=== PATIENT | female | born 1950 | race Caucasian/White ===

== ENCOUNTER 2020-01-22 08:11 | Outpatient (REF) | payer MEDICARE, SELFPAY ==
[2020-01-22 12:27] LABS: Free T4 (Free Thyroxine) 1.14 ng/dL (0.71-1.85); Thyroid Stimulating Hormone 4.35 mIU/mL (0.32-4.0)
[2020-01-22 12:32] LABS: Alanine Aminotransferase 10 U/L (0-31); Alkaline Phosphatase 79 U/L (39-117); Anion Gap 18 (12-20); Aspartate Amino Transferase 13 U/L (5-31); Bilirubin Total 0.4 mg/dL (0.0-1.0); Blood Urea Nitrogen 28 mg/dL (9-16); Calcium 9.3 mg/dL (8.4-10.2); Carbon Dioxide 30 mmol/L (22-29); Chloride 98 mmol/L (96-108); Cholesterol 157 mg/dL; Estimated Glomerular Filt Rate 27; HDL Cholesterol 36 mg/dL; LDL Cholesterol Calculated 90 mg/dl; Potassium 4.7 mmol/l (3.3-5.1); Sodium 141 mmol/L (135-145); Total Protein 7.5 g/dL (6.5-8.0); Triglycerides 155 mg/dL
[2020-01-22 13:31] LABS: Estimated Average Glucose 157 mg/dL; Hemoglobin A1c % 7.1 %
[2020-01-22 13:57] LABS: Glucose Fasting 38 mg/dL (60-99)
== END 2020-01-22 08:12 | disposition home or self-care (01) ==
LOC: HO.MANLR 08:11
PROVIDERS: PCP Internal Medicine; Visit Provider Internal Medicine
DX: E11.9 Type 2 diabetes mellitus without complications (principal); E03.9 Hypothyroidism, unspecified
CPT/HCPCS: 80053; 80061; 83036; 84439; 84443

== ENCOUNTER 2020-05-28 12:07 | Outpatient (REF) | payer MEDICARE, SELFPAY ==
[2020-05-28 14:01] LABS: MANUAL DIFF FLAG NO
[2020-05-28 14:13] LABS: Estimated Average Glucose 143 mg/dL; Hemoglobin A1c % 6.6 %
[2020-05-28 14:22] LABS: Basophils Absolute Auto 0.1 X10*3/uL (0.0-0.2); Basophils Percent Auto 0.5 % (0-2); Eosinophils Absolute Auto 0.8 X10*3/uL (0.0-0.4); Hematocrit 41.6 % (37-47); Hemoglobin 12.7 g/dl (12.0-16.0); Imm Gran Abs Auto 0.06 X10*3/uL (0.00-0.03); Imm Gran Pct Auto 0.4 % (0.0-0.4); Lymphocytes Absolute Auto 1.1 X10*3/uL (1.2-4.9); Lymphocytes Percent Auto 6.6 % (20-40); Mean Corpuscular HGB Conc 30.5 g/dl (31.0-35.0); Mean Corpuscular Hemoglobin 26.1 pg (27.0-33.0); Mean Corpuscular Volume 85.4 fL (80-98); Mean Platelet Volume 12.7 fL (9.4-12.3); Monocytes Absolute Auto 1.1 X10*3/uL (0.1-1.2); Monocytes Percent Auto 7.1 % (2-11); Neutrophils Absolute Auto 12.7 X10*3/uL (2.0-8.3); Neutrophils Percent Auto 80.4 % (45-73); Platelet Count 269 X10*3/uL (160-400); Red Blood Count 4.87 X10*6/uL (4.20-5.50); Red Cell Distribution Width 14.6 % (11.0-16.0); White Blood Count 15.8 X10*3/uL (4.8-10.8)
[2020-05-28 16:12] LABS: Alanine Aminotransferase 12 U/L (0-31); Albumin Level 3.9 g/dL (3.5-5.0); Alkaline Phosphatase 101 U/L (39-117); Anion Gap 19 (12-20); Aspartate Amino Transferase 13 U/L (5-31); Bilirubin Total 0.4 mg/dL (0.0-1.0); Blood Urea Nitrogen 25 mg/dL (9-16); Calcium 9.3 mg/dL (8.4-10.2); Carbon Dioxide 28 mmol/L (22-29); Chloride 98 mmol/L (96-108); Estimated Glomerular Filt Rate 32; Glucose Random 87 mg/dL (60-115); Potassium 4.6 mmol/L (3.3-5.1); Sodium 140 mmol/L (135-145); Total Protein 7.2 g/dL (6.5-8.0)
[2020-05-28 16:33] LABS: Free T4 (Free Thyroxine) 1.11 ng/dL (0.71-1.85); Thyroid Stimulating Hormone 2.34 uIU/mL (0.32-4.0)
== END 2020-05-28 12:08 | disposition home or self-care (01) ==
LOC: HO.MANLDS 12:07
PROVIDERS: PCP Internal Medicine; Visit Provider Internal Medicine
DX: N18.2 Chronic kidney disease, stage 2 (mild) (principal); E03.9 Hypothyroidism, unspecified; Z79.4 Long term (current) use of insulin
CPT/HCPCS: 36415; 80053; 83036; 84439; 84443; 85025

== ENCOUNTER 2021-04-21 14:22 | Outpatient (REF) | payer MEDICARE, SELFPAY ==
[2021-04-21 18:36] LABS: Estimated Average Glucose 169 mg/dL; Hemoglobin A1c % 7.5 %
[2021-04-21 18:42] LABS: Creatinine Urine 43.85 mg/dL; Microalbum/Creatinine Ratio Ur 50.1 ug/mg cr
[2021-04-21 18:44] LABS: Alanine Aminotransferase 7 U/L (0-31); Albumin Level 3.7 g/dL (3.5-5.0); Alkaline Phosphatase 98 U/L (39-117); Anion Gap 14 (12-20); Aspartate Amino Transferase 12 U/L (5-31); Bilirubin Total 0.6 mg/dL (0.0-1.0); Blood Urea Nitrogen 22 mg/dL (9-16); Calcium 9.2 mg/dL (8.4-10.2); Carbon Dioxide 33 mmol/L (22-29); Chloride 102 mmol/L (96-108); Cholesterol 189 mg/dL; Estimated Glomerular Filt Rate 38; Glucose Fasting 91 mg/dL (60-99); HDL Cholesterol 32 mg/dL; LDL Cholesterol Calculated 115 mg/dl; Sodium 145 mmol/L (135-145); Total Protein 7.2 g/dL (6.5-8.0); Triglycerides 214 mg/dL
[2021-04-21 19:06] LABS: Free T4 (Free Thyroxine) 1.19 ng/dL (0.71-1.85); Thyroid Stimulating Hormone 0.61 uIU/mL (0.32-4.0)
== END 2021-04-21 14:23 | disposition home or self-care (01) ==
LOC: HO.MANLDS 14:22
PROVIDERS: PCP Internal Medicine; Visit Provider Internal Medicine
DX: I10 Essential (primary) hypertension (principal); E03.9 Hypothyroidism, unspecified; Z79.4 Long term (current) use of insulin
CPT/HCPCS: 36415; 80053; 80061; 82043; 83036; 84439; 84443

== ENCOUNTER 2021-10-08 11:22 | Inpatient (IN) | payer OTHER, SELFPAY ==
[2021-10-08] VITALS (7 sets, daily range): BP systolic 110–194; BP diastolic 50–82; PULSE 75–96; RESP 16–20; TEMP 36.4–36.6; O2SAT 88–100; BMI 54.0
--- NOTE | ~2021-10-08 | CT_ITS ---
EXAMINATION: CT CHEST WITHOUT CONTRAST CLINICAL INFORMATION: Confirm pneumonia COMPARISON: Chest radiograph earlier today and 12/04/2015 TECHNIQUE: Multidetector volumetric CT imaging of the chest was done. Axial MIP volume rendering provided. Sagittal and coronal reformatted images were obtained. This CT examination was performed using dose optimization techniques as appropriate, variously including the following: *Automated exposure control *Adjustment of mA and/or kV according to patient size (this includes techniques or standardized protocols for targeted exams where dose is matched to indication/reason for exam; i.e. extremities or head) *Use of iterative reconstruction technique DLP: 543 mGy-cm FINDINGS: LUNGS: There is mild prominence of interstitial markings present throughout the lungs with no focal infiltrate seen. There is one area of groundglass change seen adjacent to the mediastinum along the major fissure in the left upper lobe (5:154). A single small 3 mm right upper lobe nodule is present (5:44). MEDIASTINUM: Heart size upper limits of normal. Mediastinal lymphadenopathy is present with the largest node in the right paracarinal area measuring 3.4 x 3.0 x 3.1 cm (3:17). PLEURA: There is no pleural effusion. No pleural mass or thickening. AXILLA: Mildly enlarged axillary lymph nodes are present the largest on the right measuring 2.1 x 1.5 x 1.6 cm (3:16) UPPER ABDOMEN: Shotty adenopathy is seen with nodes seen in the gastrohepatic ligament and jasvir hepatis region. No abdominal lymphadenopathy. OSSEOUS STRUCTURES: Degenerative changes noted throughout the spine. No bony destructive lesions CT/CT chest wo con IMPRESSION: 1. No convincing evidence of pneumonia. One tiny area of groundglass infiltrate. 2. Chronic interstitial disease is present. 3. Mediastinal lymphadenopathy is present Fleischner guidelines were followed.
--- NOTE | ~2021-10-08 | XR_ITS ---
EXAMINATION: XR CHEST CLINICAL INFORMATION: Fatigue with question of COMPARISON: 12/04/2015 TECHNIQUE: Frontal view of the chest was obtained. FINDINGS: The heart is enlarged. There are increased interstitial markings bilaterally with increased nodular densities present as well. Findings are suggestive of interstitial infiltrates. There is some relative sparing of the left lower lobe. Differential would include entities such as viral pneumonia. Some element of somewhat atypical CHF could also cause such a picture. No pleural effusions. XR/XR chest 1V IMPRESSION: Worsening of appearances since prior with increased interstitial markings as described above. Differential includes infectious and noninfectious etiologies.
[2021-10-08 11:34] LABS: Glucose, Whole Blood 85 mg/dL (60-115)
--- NOTE | 2021-10-08 11:36 | ECG_ITS ---
Test Reason : weakness Blood Pressure : / mmHG Vent. Rate : 081 BPM Atrial Rate : 081 BPM P-R Int : 230 ms QRS Dur : 116 ms QT Int : 446 ms P-R-T Axes : 043 083 008 degrees QTc Int : 518 ms Sinus rhythm with 1st degree A-V block Cannot rule out Anterior infarct , age undetermined Prolonged QT Abnormal ECG When compared with ECG of 04-DEC-2015 18:49, Sinus rhythm has replaced Junctional rhythm Referred By: Balbir Prater Electronically Signed By:Kenji Green
[2021-10-08] MEDS: Dextrose 5 % and Lactated Ring 1,000 ML 125 ML IVCONT (11:59)
--- NOTE | 2021-10-08 12:00 | ED.GENADULT ---
HPI - General Adult General Chief complaint: General Medical Stated complaint: HYPOGLYCEMIA Time Seen by Provider: 10/08/21 11:26 Source: patient Mode of arrival: ambulatory Limitations: no limitations History of Present Illness HPI narrative: 71-year-old female history of diabetes, chronic lower extremity cellulitis, and CHF presents to ED for hypoglycemia. Patient this morning was awakened by family and was drowsy and slightly altered. When EMT came to the house he states patient's glucose was 22. EMT was informed by family that patient has not been eating much due to patient complaining of being fatigued, tired, and loss of appetite. He also states patient at times not compliant with her medications. Patient admits not taking her CHF medication. Patient states being compliant with her diabetes medication. Patient denies any fever, chills, chest pain, shortness of breath, or increased swelling of lower extremities. Patient denies any recent trauma. Patient denies any slurred speech, facial droop, paralysis of extremities, loss of vision, dizziness, abdominal pain, diarrhea, dysuria, hematuria, or recent trauma. Patient was given D10 25 amp. Glucose fluctates between 22, 45, and than 75 Related Data Home Medications Medication Instructions Recorded Confirmed amitriptyline 50 mg tablet 25 mg PO DAILY 10/08/21 10/08/21 aspirin 325 mg tablet 325 mg PO DAILY 10/08/21 10/08/21 brinzolamide 1 %-brimonidine 0.2 % 1 drp ophthalmic-Right BID 10/08/21 10/08/21 eye drops,suspension (Simbrinza) chlordiazepoxide HCl 10 mg capsule 10 mg PO BEDTIME 10/08/21 10/08/21 citalopram 20 mg tablet 20 mg PO DAILY 10/08/21 10/08/21 clonazepam 0.5 mg tablet 0.5 mg PO BID 10/08/21 10/08/21 docusate sodium 100 mg tablet 100 mg PO DAILY 10/08/21 10/08/21 furosemide 40 mg tablet 40 tab PO BID@0900,1800 10/08/21 10/08/21 glipizide 10 mg tablet 10 mg PO DAILY 10/08/21 10/08/21 hydroxychloroquine 200 mg tablet 200 mg PO BID 10/08/21 10/08/21 insulin glargine 100 unit/mL (3 80 unit subcut BEDTIME 10/08/21 10/08/21 mL) subcutaneous pen (Lantus Solostar U-100 Insulin) insulin lispro protamine-lispro 7 - 15 ea subcut TIDAC 10/08/21 10/08/21 100 unit/mL (75-25) subcutaneous pen levothyroxine 175 mcg tablet 175 mcg PO DAILY@0600 10/08/21 10/08/21 multivitamin 1 tab PO DAILY 10/08/21 10/08/21 netarsudil 0.02 %-latanoprost 1 drp ophthalmic (eye) BEDTIME 10/08/21 10/08/21 0.005 % eye drops (Rocklatan) penicillin V potassium 250 mg 250 mg PO BID 10/08/21 10/08/21 tablet simvastatin 20 mg tablet 20 mg PO BEDTIME 10/08/21 10/08/21 sitagliptin 100 mg tablet (Januvia) 100 mg PO DAILY 10/08/21 10/08/21 Allergies Allergy/AdvReac Type Severity Reaction Status Date / Time From PERCOCET Allergy Intermediate RASH Uncoded 12/20/19 15:18 Review of Systems Review of Systems: hypoglycemia, fatigue, not eating. Woke up altered and resolved after being given D!0 Yes all other systems are reviewed and are negative [facility] Past Medical History Medical History (Updated 10/08/21 @ 21:14 by MARIAH Prieto) CKD (chronic kidney disease) Diabetes mellitus with insulin therapy HLD (hyperlipidemia) HTN (hypertension) Hypothyroidism Lower extremity edema Migraine Obesity Pseudotumor cerebri PVD (peripheral vascular disease) Surgical History (Updated 10/08/21 @ 17:24 by Cameron Toribio MD) H/O cataract extraction H/O hysterectomy for benign disease Hx of cholecystectomy S/P appendectomy Family History Family History (Updated 10/08/21 @ 17:27 by Cameron Toribio MD) Mother Heart attack, Onset Age: 92 Father Heart attack, Onset Age: 66 Other Diabetes Social History Social History Alcohol intake: never Patient Tobacco Use Status: Never used Tobacco Use of substances other than those prescribed or required for medical reasons: No Advance Directives: Yes Advance Directives on File: Yes Advance Directives Date on File: 09/26/20 service: No Current occupational status: disabled Physical Exam ED Vital Signs: Vital Signs - 24 hr 10/08/21 11:36 10/08/21 11:43 10/08/21 13:31 Temperature 97.8 F 97.6 F 97.7 F Pulse Rate 83 81 75 Respiratory Rate 20 17 16 Blood Pressure 110/65 110/65 179/74 H Pulse Oximetry 94 93 99 Oxygen Delivery Method Room Air Room Air Nasal Cannula Oxygen Flow Rate 1.5 10/08/21 14:40 Temperature Pulse Rate 79 Respiratory Rate 18 Blood Pressure 156/67 H Pulse Oximetry 98 Oxygen Delivery Method Nasal Cannula Oxygen Flow Rate 2 BMI result Body Mass Index 54.0 Const General: cooperative, healthy appearing, comfortable, no acute distress, well developed, alert, awake and Physically active Orientation/consciousness: oriented to person, oriented to place, oriented to time and patient oriented x3 HENMT Head: Yes normal to inspection, Yes No palpable skull fracture present, Yes normocephalic, Yes atraumatic and No abrasion Eyes General: appearance normal, both eyes and all related structures Neck Neck: Yes normal visual inspection, Yes full ROM, Yes no lymphadenopathy, Yes no meningeal signs, Yes trachea midline, Yes supple, No anterior neck swelling and No tender Chest Chest palpation & inspection: normal inspection of the chest and normal palpation of entire chest wall Resp Effort & Inspection: normal respiratory effort and able to speak in complete sentences Auscultation: clear to auscultation bilaterally Cardio Jugular venous distension: no JVD Heart sounds: S1 normal heart sound present and S2 normal heart sound present GI Inspection: Yes normal to inspection and No abdominal wall ecchymosis Palpation (GI): Soft to palpation, not firm, nontender, no guarding and not rigid General: No CVA tenderness and Yes no CVA tenderness Back/Spine/Pelvis Back: no CVA tenderness, No CVA tenderness and No back tenderness Skin General skin exam: no rashes or lesions noted and elasticity normal Neuro Other: Negative slurred speech. Negative facial droop. All extremities equal strength 5+. Finger to nose rapid hand movement intact. Negative pronator drift. NIH score 0 General: oriented to person, oriented to place, oriented to time, patient oriented x3, tone normal, moves all extremities, Normal light touch and pain sensation, no meningeal signs and CN's II-XI intact bilaterally Extrem Other: Lower extremities negative for swelling, pitting edema, calf tenderness, or erythema. Positive for chronic venous stasis changes. General: Yes normal to inspection and Yes full ROM Psych Appearance: grossly normal and well kempt Course Course Course Narrative: Patient repeat glucose 85 will start D5 LR. We will look for source of infection due to patient being fatigued for couple a days decreased appetite and hypoglycemic. Chest x-ray, UA, and COVID test ordered. Initial vitals did not indicate SIRS. To patient being diabetic will check for side AL will do EKG, troponin, and BNP. Patient also is on a sulfonylurea which can cause long-lasting hypoglycemia. Reevaluation(s) Reevaluation #1: Patient glucose 48. Patient presently CV D5 LR. D5 and ordered and given. Alba juice and sandwich given to patient. First troponin positive.. Negative STEMI. Patient having any chest pain. Review of labs shows CKD. Chest x-ray pending. Time: 12:47 Reevaluation #2: Patient's chest x-ray shows pneumonia. X-ray states maybe CHF atypical but BNP slightly elevated and no pericardial effusion. With patient being fatigued and decreased appetite was start antibiotics sent for chest CT to confirm pneumonia. Time: 15:22 Reevaluation #3: Chest CT has for hospitalist negative for pneumonia. Recommend antibiotics be stopped. Urine negative for UTI. Patient became hypoglycemic again at 58. Patient admitted for hypoglycemia. Patient alert oriented x3 Time: 21:12 Medical Decision Making MDM Narrative Medical decision making narrative: Hypoglycemia Lab Data Result diagrams: 10/08/21 12:22 10/08/21 12:05 Labs: Lab Results 10/08/21 10/08/21 10/08/21 Range/Units 11:28 12:05 12:05 WBC (4.8-10.8) X10*3/uL RBC (4.20-5.50) X10*6/uL Hgb (12.0-16.0) g/dl Hct (37.0-47.0) % MCV (80.0-98.0) fL MCH (27.0-33.0) pg MCHC (31.0-35.0) g/dl RDW (11.0-16.0) % Plt Count (160-400) X10*3/uL MPV (9.4-12.3) fL Immature Gran % (Auto) (0.0-0.4) % Neut % (Auto) (45-73) % Lymph % (Auto) (20-40) % [place] % (Auto) (2-11) % Eos % (Auto) (0-4) % Baso % (Auto) (0-2) % Lymph # (Auto) (1.2-4.9) X10*3/uL [place] # (Auto) (0.1-1.2) X10*3/uL Eos # (Auto) (0.0-0.4) X10*3/uL Baso # (Auto) (0.0-0.2) X10*3/uL Abs Immat Gran (auto) (0.00-0.03) X10*3/uL Absolute Neuts (auto) (2.0-8.3) x10*3/uL Absolute Nucleated RBC (0.0-0.012) X10*3/uL Nucleated RBC % (auto) (0.0-0.2) /100WBC PT (10.0-13.1) SEC INR (0.9-1.1) APTT (24.1-38.0) SEC Sodium 144 (135-145) mmol/L Potassium 3.4 (3.3-5.1) mmol/L Chloride 104 (96-108) mmol/L Carbon Dioxide 31 H (22-29) mmol/L Anion Gap 12 (12-20) BUN 20 H (9-16) mg/dL Creatinine 1.49 H (0.5-1.4) mg/dL Estim Creat Clear Calc 48.1 Estimated GFR 35 POC Glucose 85 (60-115) mg/dL Random Glucose 48 L* (60-115) mg/dL Lactic Acid (0.5-2.0) mmol/L Calcium 8.5 D (8.4-10.2) mg/dL Magnesium (1.6-2.6) mg/dL Total Bilirubin 0.3 (0.0-1.0) mg/dL AST 14 (5-31) U/L ALT 7 (0-31) U/L Alkaline Phosphatase 75 D (39-117) U/L Troponin I High Sens (<3.5-17.0) ng/L B-Natriuretic Peptide (<100) pg/mL Total Protein 6.9 (6.5-8.0) g/dL Albumin 3.5 (3.5-5.0) g/dL COVID-19 (DENY) Negative (Negative) COVID-19 Clin Com See Note 10/08/21 10/08/21 10/08/21 Range/Units 12:05 12:05 12:22 WBC 12.1 H (4.8-10.8) X10*3/uL RBC 4.39 (4.20-5.50) X10*6/uL Hgb 10.8 L (12.0-16.0) g/dl Hct 36.0 L (37.0-47.0) % MCV 82.0 (80.0-98.0) fL MCH 24.6 L (27.0-33.0) pg MCHC 30.0 L (31.0-35.0) g/dl RDW 15.2 (11.0-16.0) % Plt Count 193 (160-400) X10*3/uL MPV 11.0 (9.4-12.3) fL Immature Gran % (Auto) 0.2 (0.0-0.4) % Neut % (Auto) 81.5 H (45-73) % Lymph % (Auto) 5.6 L (20-40) % [place] % (Auto) 7.3 (2-11) % Eos % (Auto) 4.9 H (0-4) % Baso % (Auto) 0.5 (0-2) % Lymph # (Auto) 0.7 L (1.2-4.9) X10*3/uL [place] # (Auto) 0.9 (0.1-1.2) X10*3/uL Eos # (Auto) 0.6 H (0.0-0.4) X10*3/uL Baso # (Auto) 0.1 (0.0-0.2) X10*3/uL Abs Immat Gran (auto) 0.03 (0.00-0.03) X10*3/uL Absolute Neuts (auto) 9.8 H (2.0-8.3) x10*3/uL Absolute Nucleated RBC 0.000 (0.0-0.012) X10*3/uL Nucleated RBC % (auto) 0.0 (0.0-0.2) /100WBC PT 11.3 (10.0-13.1) SEC INR 1.0 (0.9-1.1) APTT 40.8 H (24.1-38.0) SEC Sodium (135-145) mmol/L Potassium (3.3-5.1) mmol/L Chloride (96-108) mmol/L Carbon Dioxide (22-29) mmol/L Anion Gap (12-20) BUN (9-16) mg/dL Creatinine (0.5-1.4) mg/dL Estim Creat Clear Calc Estimated GFR POC Glucose (60-115) mg/dL Random Glucose (60-115) mg/dL Lactic Acid (0.5-2.0) mmol/L Calcium (8.4-10.2) mg/dL Magnesium (1.6-2.6) mg/dL Total Bilirubin (0.0-1.0) mg/dL AST (5-31) U/L ALT (0-31) U/L Alkaline Phosphatase (39-117) U/L Troponin I High Sens 68.9 H* (<3.5-17.0) ng/L B-Natriuretic Peptide 142 H (<100) pg/mL Total Protein (6.5-8.0) g/dL Albumin (3.5-5.0) g/dL COVID-19 (DENY) (Negative) COVID-19 Clin Com 10/08/21 10/08/21 10/08/21 Range/Units 12:22 13:29 14:43 WBC (4.8-10.8) X10*3/uL RBC (4.20-5.50) X10*6/uL Hgb (12.0-16.0) g/dl Hct (37.0-47.0) % MCV (80.0-98.0) fL MCH (27.0-33.0) pg MCHC (31.0-35.0) g/dl RDW (11.0-16.0) % Plt Count (160-400) X10*3/uL MPV (9.4-12.3) fL Immature Gran % (Auto) (0.0-0.4) % Neut % (Auto) (45-73) % Lymph % (Auto) (20-40) % [place] % (Auto) (2-11) % Eos % (Auto) (0-4) % Baso % (Auto) (0-2) % Lymph # (Auto) (1.2-4.9) X10*3/uL [place] # (Auto) (0.1-1.2) X10*3/uL Eos # (Auto) (0.0-0.4) X10*3/uL Baso # (Auto) (0.0-0.2) X10*3/uL Abs Immat Gran (auto) (0.00-0.03) X10*3/uL Absolute Neuts (auto) (2.0-8.3) x10*3/uL Absolute Nucleated RBC (0.0-0.012) X10*3/uL Nucleated RBC % (auto) (0.0-0.2) /100WBC PT (10.0-13.1) SEC INR (0.9-1.1) APTT (24.1-38.0) SEC Sodium (135-145) mmol/L Potassium (3.3-5.1) mmol/L Chloride (96-108) mmol/L Carbon Dioxide (22-29) mmol/L Anion Gap (12-20) BUN (9-16) mg/dL Creatinine (0.5-1.4) mg/dL Estim Creat Clear Calc Estimated GFR POC Glucose 94 99 (60-115) mg/dL Random Glucose (60-115) mg/dL Lactic Acid (0.5-2.0) mmol/L Calcium (8.4-10.2) mg/dL Magnesium 2.2 (1.6-2.6) mg/dL Total Bilirubin (0.0-1.0) mg/dL AST (5-31) U/L ALT (0-31) U/L Alkaline Phosphatase (39-117) U/L Troponin I High Sens (<3.5-17.0) ng/L B-Natriuretic Peptide (<100) pg/mL Total Protein (6.5-8.0) g/dL Albumin (3.5-5.0) g/dL COVID-19 (DENY) (Negative) COVID-19 Clin Com 10/08/21 10/08/21 10/08/21 Range/Units 15:04 15:04 16:09 WBC (4.8-10.8) X10*3/uL RBC (4.20-5.50) X10*6/uL Hgb (12.0-16.0) g/dl Hct (37.0-47.0) % MCV (80.0-98.0) fL MCH (27.0-33.0) pg MCHC (31.0-35.0) g/dl RDW (11.0-16.0) % Plt Count (160-400) X10*3/uL MPV (9.4-12.3) fL Immature Gran % (Auto) (0.0-0.4) % Neut % (Auto) (45-73) % Lymph % (Auto) (20-40) % [place] % (Auto) (2-11) % Eos % (Auto) (0-4) % Baso % (Auto) (0-2) % Lymph # (Auto) (1.2-4.9) X10*3/uL [place] # (Auto) (0.1-1.2) X10*3/uL Eos # (Auto) (0.0-0.4) X10*3/uL Baso # (Auto) (0.0-0.2) X10*3/uL Abs Immat Gran (auto) (0.00-0.03) X10*3/uL Absolute Neuts (auto) (2.0-8.3) x10*3/uL Absolute Nucleated RBC (0.0-0.012) X10*3/uL Nucleated RBC % (auto) (0.0-0.2) /100WBC PT (10.0-13.1) SEC INR (0.9-1.1) APTT (24.1-38.0) SEC Sodium (135-145) mmol/L Potassium (3.3-5.1) mmol/L Chloride (96-108) mmol/L Carbon Dioxide (22-29) mmol/L Anion Gap (12-20) BUN (9-16) mg/dL Creatinine (0.5-1.4) mg/dL Estim Creat Clear Calc Estimated GFR POC Glucose 97 (60-115) mg/dL Random Glucose (60-115) mg/dL Lactic Acid 0.7 (0.5-2.0) mmol/L Calcium (8.4-10.2) mg/dL Magnesium (1.6-2.6) mg/dL Total Bilirubin (0.0-1.0) mg/dL AST (5-31) U/L ALT (0-31) U/L Alkaline Phosphatase (39-117) U/L Troponin I High Sens 67.8 H* (<3.5-17.0) ng/L B-Natriuretic Peptide (<100) pg/mL Total Protein (6.5-8.0) g/dL Albumin (3.5-5.0) g/dL COVID-19 (DENY) (Negative) COVID-19 Clin Com ECG Data Interpretation: Sinus rhythm 1st degree AV block. Ventricular rate 81. Peer interval 250. Care is 160. QTC 518. Critical Care Time Critical Care Time Critical Care Time: Yes Total Critical Care Time: 60 Attestation: D5 Amp. Labs. D5 LR IV. Admission Discharge Plan Discharge Clinical Impression: Hypoglycemia Patient Disposition: Admitted As Inpatient
[2021-10-08 12:24] LABS: Prothrombin Time 11.3 SEC (10.0-13.1)
[2021-10-08 12:27] LABS: Partial Thromboplastin Time 40.8 SEC (24.1-38.0)
[2021-10-08 12:33] LABS: Basophils Absolute Auto 0.1 X10*3/uL (0.0-0.2); Basophils Percent Auto 0.5 % (0-2); Eosinophils Absolute Auto 0.6 X10*3/uL (0.0-0.4); Eosinophils Percent Auto 4.9 % (0-4); Hemoglobin 10.8 g/dl (12.0-16.0); Imm Gran Abs Auto 0.03 X10*3/uL (0.00-0.03); Imm Gran Pct Auto 0.2 % (0.0-0.4); Lymphocytes Absolute Auto 0.7 X10*3/uL (1.2-4.9); Lymphocytes Percent Auto 5.6 % (20-40); Mean Corpuscular Hemoglobin 24.6 pg (27.0-33.0); Monocytes Absolute Auto 0.9 X10*3/uL (0.1-1.2); Monocytes Percent Auto 7.3 % (2-11); Neutrophils Absolute Auto 9.8 x10*3/uL (2.0-8.3); Neutrophils Percent Auto 81.5 % (45-73); Platelet Count 193 X10*3/uL (160-400); Red Blood Count 4.39 X10*6/uL (4.20-5.50); Red Cell Distribution Width 15.2 % (11.0-16.0); White Blood Count 12.1 X10*3/uL (4.8-10.8)
[2021-10-08 12:39] LABS: Alanine Aminotransferase 7 U/L (0-31); Albumin Level 3.5 g/dL (3.5-5.0); Alkaline Phosphatase 75 U/L (39-117); Anion Gap 12 (12-20); Aspartate Amino Transferase 14 U/L (5-31); Bilirubin Total 0.3 mg/dL (0.0-1.0); Blood Urea Nitrogen 20 mg/dL (9-16); Calcium 8.5 mg/dL (8.4-10.2); Carbon Dioxide 31 mmol/L (22-29); Chloride 104 mmol/L (96-108); Creatinine Clr Calc Pharmacy 48.1; Estimated Glomerular Filt Rate 35; Glucose Random 48 mg/dL (60-115); Potassium 3.4 mmol/L (3.3-5.1); Sodium 144 mmol/L (135-145); Total Protein 6.9 g/dL (6.5-8.0)
[2021-10-08 12:41] LABS: B Type Natriuretic Peptide 142 pg/mL (<100); Troponin-I High Sensitivity 68.9 ng/L (<3.5-17.0)
[2021-10-08] MEDS: Dextrose 50 % 25 GM/50 ML SYRINGE IVPUSH ×2 (12:44→21:53)
[2021-10-08 12:50] LABS: COVID-19 Test Negative (Negative); IDNOW Serial# 08D9AD1C
[2021-10-08 12:50] LABS: Magnesium 2.2 mg/dL (1.6-2.6)
[2021-10-08 13:40] LABS: Glucose, Whole Blood 94 mg/dL (60-115)
--- NOTE | 2021-10-08 13:40 | PC.NURSE ---
pt ate tuna sandwich and a couple bites of her chocolate pudding. drank carton of milk
[2021-10-08 14:47] LABS: Glucose, Whole Blood 99 mg/dL (60-115)
[2021-10-08 15:22] LABS: Lactic Acid 0.7 mmol/L (0.5-2.0)
--- NOTE | 2021-10-08 15:23 | PC.NURSE ---
patient a&o, family at bedside, pt just returned from ct scan, ivf running per order, last set of vitals were stable, call morocho within reach, will continue to monitor
[2021-10-08 15:33] LABS: Troponin-I High Sensitivity 67.8 ng/L (<3.5-17.0)
[2021-10-08] MEDS: cefTRIAXone sodium 1 GM in 0.9 % Sodium Chloride 50 ML IV (16:12)
[2021-10-08 16:15] LABS: Glucose, Whole Blood 97 mg/dL (60-115)
--- NOTE | 2021-10-08 16:21 | P.HPHOSP_ITS ---
History of Present Illness Date of Service: 10/08/21 Chief Complaint: HyOglycemia 71 year female with diabetes on Januvia, Lantus and Glipizide 10 bid, CKD 3, hypOthyroidism on Levothyroxine, HLD on statin. She has has been complaining of feeling weak and not eating her usual meals size and yet continuen to take her meds, her daughter out of concern for low sugars. The is morning she was very weak, lethargic and confused and was found to have sugar of 22 by EMS, and 48 in ED and now up to 97 and she's feeling better. No fever or chills, no cough, no sob..CXR questionable for PNA, CT shows no convincing evidence of PNA Review of Systems Review of Systems: Gen: no fever Resp: no sob, no cough CV: no chest, no ELIAS, no leg edema GI: No n/v, no abd pain Neuro: No confusion, feeling weak PMFSH Medical History CKD (chronic kidney disease) Diabetes mellitus with insulin therapy HLD (hyperlipidemia) HTN (hypertension) Hypothyroidism Lower extremity edema Migraine Obesity Pseudotumor cerebri PVD (peripheral vascular disease) Family History (Updated 10/08/21 @ 17:27 by Cameron Toribio MD) Mother Heart attack, Onset Age: 92 Father Heart attack, Onset Age: 66 Other Diabetes Surgical History H/O cataract extraction H/O hysterectomy for benign disease Hx of cholecystectomy S/P appendectomy Social History Alcohol intake: never Patient Tobacco Use Status: Never used Tobacco Smoked in Last 30 Days: No Patient Interested in Nicotine Replacement: No Patient Given Instructions on How to Stop Smoking: No Use of substances other than those prescribed or required for medical reasons: No Advance Directives: Yes Advance Directives on File: Yes Advance Directives Date on File: 09/26/20 service: No Current occupational status: disabled Meds Allergies Allergy/AdvReac Type Severity Reaction Status Date / Time From PERCOCET Allergy Intermediate RASH Uncoded 12/20/19 15:18 Active Medications: Current Medications Dextrose/Lactated Ringer's (D5lr) 1,000 mls @ 125 mls/hr IVCONT .Q8H STA Stop: 10/08/21 19:29 Last Admin: 10/08/21 11:59 Dose: 125 mls/hr Azithromycin 500 mg/ Sodium (Chloride) 250 mls @ 125 mls/hr IV ONCE ONE Stop: 10/08/21 16:48 Home Medications Medication Instructions Recorded Confirmed Last Taken Type amitriptyline 50 mg tablet 25 mg PO DAILY 10/08/21 10/08/21 Unknown History aspirin 325 mg tablet 325 mg PO DAILY 10/08/21 10/08/21 Unknown History brinzolamide 1 %-brimonidine 0.2 % 1 drp ophthalmic-Right BID 10/08/21 10/08/21 Unknown History eye drops,suspension (Simbrinza) chlordiazepoxide HCl 10 mg capsule 10 mg PO BEDTIME 10/08/21 10/08/21 Unknown History citalopram 20 mg tablet 20 mg PO DAILY 10/08/21 10/08/21 Unknown History clonazepam 0.5 mg tablet 0.5 mg PO BID 10/08/21 10/08/21 Unknown History docusate sodium 100 mg tablet 100 mg PO DAILY 10/08/21 10/08/21 Unknown History furosemide 40 mg tablet 40 tab PO BID@0900,1800 10/08/21 10/08/21 Unknown History glipizide 10 mg tablet 10 mg PO DAILY 10/08/21 10/08/21 Unknown History hydroxychloroquine 200 mg tablet 200 mg PO BID 10/08/21 10/08/21 Unknown History insulin glargine 100 unit/mL (3 80 unit subcut BEDTIME 10/08/21 10/08/21 Unknown History mL) subcutaneous pen (Lantus Solostar U-100 Insulin) insulin lispro protamine-lispro 7 - 15 ea subcut TIDAC 10/08/21 10/08/21 Unknown History 100 unit/mL (75-25) subcutaneous pen levothyroxine 175 mcg tablet 175 mcg PO DAILY@0600 10/08/21 10/08/21 Unknown History multivitamin 1 tab PO DAILY 10/08/21 10/08/21 Unknown History netarsudil 0.02 %-latanoprost 1 drp ophthalmic (eye) BEDTIME 10/08/21 10/08/21 Unknown History 0.005 % eye drops (Rocklatan) penicillin V potassium 250 mg 250 mg PO BID 10/08/21 10/08/21 Unknown History tablet simvastatin 20 mg tablet 20 mg PO BEDTIME 10/08/21 10/08/21 Unknown History sitagliptin 100 mg tablet (Januvia) 100 mg PO DAILY 10/08/21 10/08/21 Unknown History Physical Exam Vital Signs and Narrative: Vital Signs: Last Vital Signs Temp 97.7 F 10/08/21 13:31 Pulse 79 10/08/21 14:40 Resp 18 10/08/21 14:40 BP 156/67 H 10/08/21 14:40 Pulse Ox 98 10/08/21 14:40 O2 Del Method 10/08/21 14:40 O2 Flow Rate 2 10/08/21 14:40 BMI result Body Mass Index 54.0 Results Labs CBC and Chem 7: 10/08/21 12:22 10/08/21 12:05 Labs: Laboratory Results - last 24 hr 10/08/21 10/08/21 10/08/21 11:28 12:05 12:05 MCV MCH MCHC RDW Plt Count MPV Immature Gran % (Auto) Neut % (Auto) Lymph % (Auto) [place] % (Auto) Eos % (Auto) Baso % (Auto) Lymph # (Auto) [place] # (Auto) Eos # (Auto) Baso # (Auto) Abs Immat Gran (auto) Absolute Neuts (auto) Absolute Nucleated RBC Nucleated RBC % (auto) PT INR APTT Anion Gap 12 Estim Creat Clear Calc 48.1 Estimated GFR 35 POC Glucose 85 Random Glucose 48 L* Lactic Acid Calcium 8.5 D Magnesium Total Bilirubin 0.3 AST 14 ALT 7 Alkaline Phosphatase 75 D Troponin I High Sens B-Natriuretic Peptide Total Protein 6.9 Albumin 3.5 COVID-19 (DENY) Negative COVID-19 Clin Com See Note 10/08/21 10/08/21 10/08/21 12:05 12:05 12:22 MCV 82.0 MCH 24.6 L MCHC 30.0 L RDW 15.2 Plt Count 193 MPV 11.0 Immature Gran % (Auto) 0.2 Neut % (Auto) 81.5 H Lymph % (Auto) 5.6 L [place] % (Auto) 7.3 Eos % (Auto) 4.9 H Baso % (Auto) 0.5 Lymph # (Auto) 0.7 L [place] # (Auto) 0.9 Eos # (Auto) 0.6 H Baso # (Auto) 0.1 Abs Immat Gran (auto) 0.03 Absolute Neuts (auto) 9.8 H Absolute Nucleated RBC 0.000 Nucleated RBC % (auto) 0.0 PT 11.3 INR 1.0 APTT 40.8 H Anion Gap Estim Creat Clear Calc Estimated GFR POC Glucose Random Glucose Lactic Acid Calcium Magnesium Total Bilirubin AST ALT Alkaline Phosphatase Troponin I High Sens 68.9 H* B-Natriuretic Peptide 142 H Total Protein Albumin COVID-19 (DENY) COVID-19 [facility] 10/08/21 10/08/21 10/08/21 12:22 13:29 14:43 MCV MCH MCHC RDW Plt Count MPV Immature Gran % (Auto) Neut % (Auto) Lymph % (Auto) [place] % (Auto) Eos % (Auto) Baso % (Auto) Lymph # (Auto) [place] # (Auto) Eos # (Auto) Baso # (Auto) Abs Immat Gran (auto) Absolute Neuts (auto) Absolute Nucleated RBC Nucleated RBC % (auto) PT INR APTT Anion Gap Estim Creat Clear Calc Estimated GFR POC Glucose 94 99 Random Glucose Lactic Acid Calcium Magnesium 2.2 Total Bilirubin AST ALT Alkaline Phosphatase Troponin I High Sens B-Natriuretic Peptide Total Protein Albumin COVID-19 (DENY) COVID-19 [facility] 10/08/21 10/08/21 10/08/21 15:04 15:04 16:09 MCV MCH MCHC RDW Plt Count MPV Immature Gran % (Auto) Neut % (Auto) Lymph % (Auto) [place] % (Auto) Eos % (Auto) Baso % (Auto) Lymph # (Auto) [place] # (Auto) Eos # (Auto) Baso # (Auto) Abs Immat Gran (auto) Absolute Neuts (auto) Absolute Nucleated RBC Nucleated RBC % (auto) PT INR APTT Anion Gap Estim Creat Clear Calc Estimated GFR POC Glucose 97 Random Glucose Lactic Acid 0.7 Calcium Magnesium Total Bilirubin AST ALT Alkaline Phosphatase Troponin I High Sens 67.8 H* B-Natriuretic Peptide Total Protein Albumin COVID-19 (DENY) COVID-19 [facility] Radiologist's Impressions: Impressions Chest X-Ray 10/08/21 12:41 IMPRESSION: Worsening of appearances since prior with increased interstitial markings as described above. Differential includes infectious and noninfectious etiologies. Assessment and Plan (1) Hypoglycemia: Status: Acute (2) Diabetes mellitus with insulin therapy: Status: Acute Plan 71/F with diabetes here with symptomatic hypOglycemia 1/ Hypoglycemia--due to combination of Lantus, januvia and especially glipizide in setting of CKD and not eating well -Hold all meds -D5 and closely monitor sugars 2/ HLD--statin 3/HypOthyroididm--Levothyroxine 4/ morbid obesity--affecting her above health, weight loss measures discussed 5/? inflitrate on CXR, CT no convincing evidence of PNA, and has no symptoms of PNA and therefore no need for Abx 6/CKD 3--stable 7/HTN--awaiting med rec to order meds 6/ DVT prophylaxis: heparin Full code observe for hypoglycemia until tomorrow Quality Stroke Does the patient have a stroke diagnosis?: No VTE Prior VTE?: No VTE Risk Level:: Medical - moderate - high VTE Device Contraindication: Treatment Not Indicated VTE Drug Contraindication: N/A - Med Ordered
--- NOTE | 2021-10-08 16:42 | PC.NURSE ---
this nurse started azithromycin, hospitalist came in to speak with the patient and asked iv d5LR and abx to be stopped. will notify ed provider
[2021-10-08 17:31] LABS: Glucose, Whole Blood 58 mg/dL (60-115)
[2021-10-08] MEDS: Dextrose 5 % and 0.45 % NaCl 1,000 ML 100 ML IVCONT (17:34)
[2021-10-08 17:42] LABS: Appearance Urine CLEAR; Color Urine YELLOW; Glucose Urine UA NEG (NEG); Leukocyte Esterase Urine NEG (NEG); Nitrite Urine NEG (NEG); UACC Culture Trigger NO; Urine Blood TRACE (NEG); Urine Ketones NEG (NEG); Urine Protein NEG (NEG-TRACE)
[2021-10-08 18:13] LABS: RBC Urine 0 /HPF (0); Squamous Epithelial Cell Urine 2+ /LPF
[2021-10-08 18:14] LABS: Bacteria Urine 1+ /LPF
--- NOTE | 2021-10-08 18:21 | PHA.MEDREC ---
Pharmacy Consult ? Medication Reconciliation Pharmacy has completed the medication reconciliation. Patient had list of medications with her. Patient's daughter confirm the list. Patient only take glipizde in the morning. Sondra Hart, FreddieD
[2021-10-08] MEDS: Heparin Sodium,Porcine 5,000 UNIT/ML VIAL 5000 UNIT SUBCUT (19:23)
--- NOTE | 2021-10-08 19:52 | PC.NURSE ---
patient a&ox3, campus monitor nsr 80s, pt was oob with assist to bedside commode, ivf running per order, call morocho within reach, will continue to monitor
--- NOTE | 2021-10-08 20:37 | MHC.CM.PN ---
LIVE 10/08. A&Ox4. HCP #1/sister Patricia Obando ([phone], HCP #2 Patricia Patricia ([phone]). Pt has grown grandchildren living with her. Has cane/walker and DM supplies in the home. No services. Moderna x2 and booster. D/C plan is home without services. Pt refused VNA for diabetic teaching/medication management. Family will transport. CM to follow for d/c needs.
[2021-10-08 21:44] LABS: Glucose, Whole Blood 27 mg/dL (60-115)
--- NOTE | 2021-10-08 21:54 | PC.NURSE ---
tech obtained poc of patient which was 27, charge nurse was notified as this nurse was in another patients room, patient was alert & oriented, speaking in full sentences, IV dextrose was given, pt also fed a peanut butter sandwich with some orange juice, ed provider was notified, will notify hospitalist, IV D5 1/2 ns running at 100 per order, will continue to monitor
--- NOTE | 2021-10-08 22:23 | PC.NURSE ---
pt was moved from stretcher to hospital bed, while doing so patients O2 sat went down to 88% and pt was ELIAS, 2L O2 nc applied, pt recovered to 100%.
[2021-10-08 22:38] LABS: Glucose, Whole Blood 118 mg/dL (60-115)
--- NOTE | 2021-10-08 22:51 | PC.NURSE ---
report called to floor
[2021-10-09 00:34] LABS: Glucose, Whole Blood 151 mg/dL (60-115)
[2021-10-09] MEDS: Melatonin 3 MG TABLET 6 MG PO ×2 (01:48→23:42)
[2021-10-09 04:00] VITALS: BP 140/62; PULSE 82; RESP 18; TEMP 36.3; O2SAT 98
[2021-10-09 04:15] LABS: Glucose, Whole Blood 134 mg/dL (60-115)
[2021-10-09] MEDS: Heparin Sodium,Porcine 5,000 UNIT/ML VIAL 5000 UNIT SUBCUT ×2 (05:50→18:26)
[2021-10-09 07:56] VITALS: BP 138/59; PULSE 81; RESP 18; TEMP 36.2; O2SAT 98
[2021-10-09] MEDS: 0.9 % Sodium Chloride Flush 3 ML SYRINGE IVFLUSH ×3 (08:21→23:42)
[2021-10-09 08:28] LABS: Glucose, Whole Blood 85 mg/dL (60-115)
--- NOTE | 2021-10-09 08:42 | P.DS_ITS ---
DS: Providers Provider Date of Service: 10/09/21 Date of admission: 10/08/21 17:14 Primary care physician: Tam Corea MD DS: Diagnosis Discharge Diagnosis (1) Hypoglycemia: Status: Acute (2) Diabetes mellitus with insulin therapy: Status: Acute DS: Summary Hospital Course Hospital Course: 71 year female with diabetes on Januvia, Lantus and Glipizide 10 bid, CKD 3, hypOthyroidism on Levothyroxine, HLD on statin. She has has been complaining of feeling weak and not eating her usual meals size and yet continuen to take her meds, her daughter out of concern for low sugars. The is morning she was very weak, lethargic and confused and was found to have sugar of 22 by EMS, and 48 in ED and now up to 97 and she's feeling better. No fever or chills, no cough, no sob..CXR questionable for PNA, CT shows no convincing evidence of PNA. hosopital course: Patient was observed overnight with given d5 1/2 with no further episodes of hypoglycemia. Glipizide Glipizide and Januvia discontinued. To continue mexed insluin 75/25 and follow up with PCP for further adjustemnt. Time Spent with Patient Time attestation: Total time spent providing and/or coordinating discharge services: Discharge coordination time: Greater than 30 minutes Quality: Safe Use of Opioids Does Pt have an Active Cancer Diagnosis on the Problem List?: No Quality: Stroke Does the patient have a stroke diagnosis?: No Physical Exam Vital Signs: Vital Signs: Last Vital Signs Temp 97.1 F 10/09/21 07:56 Pulse 81 10/09/21 07:56 Resp 18 10/09/21 07:56 BP 138/59 L 10/09/21 07:56 Pulse Ox 98 10/09/21 07:56 O2 Del Method 10/09/21 07:56 O2 Flow Rate 2 10/09/21 07:56 BMI result Body Mass Index 54.0 DS: Data Data Completed and Pending Labs on day of discharge: Laboratory Results - last 24 hr 10/08/21 10/08/21 10/08/21 11:28 12:05 12:05 WBC RBC Hgb Hct MCV MCH MCHC RDW Plt Count MPV Immature Gran % (Auto) Neut % (Auto) Lymph % (Auto) [place] % (Auto) Eos % (Auto) Baso % (Auto) Lymph # (Auto) [place] # (Auto) Eos # (Auto) Baso # (Auto) Abs Immat Gran (auto) Absolute Neuts (auto) Absolute Nucleated RBC Nucleated RBC % (auto) PT INR APTT Sodium 144 Potassium 3.4 Chloride 104 Carbon Dioxide 31 H Anion Gap 12 BUN 20 H Creatinine 1.49 H Estim Creat Clear Calc 48.1 Estimated GFR 35 POC Glucose 85 Random Glucose 48 L* Lactic Acid Calcium 8.5 D Magnesium Total Bilirubin 0.3 AST 14 ALT 7 Alkaline Phosphatase 75 D Troponin I High Sens B-Natriuretic Peptide Total Protein 6.9 Albumin 3.5 Urine Color Urine Appearance Urine pH Ur Specific [place] Urine Protein Urine Glucose (UA) Urine Ketones Urine Blood Urine Nitrite Ur Leukocyte Esterase Urine RBC Urine WBC Ur Squamous Epith Cells Urine Bacteria COVID-19 (DENY) Negative COVID-19 Clin Com See Note 10/08/21 10/08/21 10/08/21 12:05 12:05 12:22 WBC 12.1 H RBC 4.39 Hgb 10.8 L Hct 36.0 L MCV 82.0 MCH 24.6 L MCHC 30.0 L RDW 15.2 Plt Count 193 MPV 11.0 Immature Gran % (Auto) 0.2 Neut % (Auto) 81.5 H Lymph % (Auto) 5.6 L [place] % (Auto) 7.3 Eos % (Auto) 4.9 H Baso % (Auto) 0.5 Lymph # (Auto) 0.7 L [place] # (Auto) 0.9 Eos # (Auto) 0.6 H Baso # (Auto) 0.1 Abs Immat Gran (auto) 0.03 Absolute Neuts (auto) 9.8 H Absolute Nucleated RBC 0.000 Nucleated RBC % (auto) 0.0 PT 11.3 INR 1.0 APTT 40.8 H Sodium Potassium Chloride Carbon Dioxide Anion Gap BUN Creatinine Estim Creat Clear Calc Estimated GFR POC Glucose Random Glucose Lactic Acid Calcium Magnesium Total Bilirubin AST ALT Alkaline Phosphatase Troponin I High Sens 68.9 H* B-Natriuretic Peptide 142 H Total Protein Albumin Urine Color Urine Appearance Urine pH Ur Specific [place] Urine Protein Urine Glucose (UA) Urine Ketones Urine Blood Urine Nitrite Ur Leukocyte Esterase Urine RBC Urine WBC Ur Squamous Epith Cells Urine Bacteria COVID-19 (DENY) COVID-19 Clin Com 10/08/21 10/08/21 10/08/21 12:22 13:29 14:43 WBC RBC Hgb Hct MCV MCH MCHC RDW Plt Count MPV Immature Gran % (Auto) Neut % (Auto) Lymph % (Auto) [place] % (Auto) Eos % (Auto) Baso % (Auto) Lymph # (Auto) [place] # (Auto) Eos # (Auto) Baso # (Auto) Abs Immat Gran (auto) Absolute Neuts (auto) Absolute Nucleated RBC Nucleated RBC % (auto) PT INR APTT Sodium Potassium Chloride Carbon Dioxide Anion Gap BUN Creatinine Estim Creat Clear Calc Estimated GFR POC Glucose 94 99 Random Glucose Lactic Acid Calcium Magnesium 2.2 Total Bilirubin AST ALT Alkaline Phosphatase Troponin I High Sens B-Natriuretic Peptide Total Protein Albumin Urine Color Urine Appearance Urine pH Ur Specific [place] Urine Protein Urine Glucose (UA) Urine Ketones Urine Blood Urine Nitrite Ur Leukocyte Esterase Urine RBC Urine WBC Ur Squamous Epith Cells Urine Bacteria COVID-19 (DENY) COVID-19 [email or web address] 10/08/21 10/08/21 10/08/21 15:04 15:04 16:09 WBC RBC Hgb Hct MCV MCH MCHC RDW Plt Count MPV Immature Gran % (Auto) Neut % (Auto) Lymph % (Auto) [place] % (Auto) Eos % (Auto) Baso % (Auto) Lymph # (Auto) [place] # (Auto) Eos # (Auto) Baso # (Auto) Abs Immat Gran (auto) Absolute Neuts (auto) Absolute Nucleated RBC Nucleated RBC % (auto) PT INR APTT Sodium Potassium Chloride Carbon Dioxide Anion Gap BUN Creatinine Estim Creat Clear Calc Estimated GFR POC Glucose 97 Random Glucose Lactic Acid 0.7 Calcium Magnesium Total Bilirubin AST ALT Alkaline Phosphatase Troponin I High Sens 67.8 H* B-Natriuretic Peptide Total Protein Albumin Urine Color Urine Appearance Urine pH Ur Specific [place] Urine Protein Urine Glucose (UA) Urine Ketones Urine Blood Urine Nitrite Ur Leukocyte Esterase Urine RBC Urine WBC Ur Squamous Epith Cells Urine Bacteria COVID-19 (DENY) COVID-19 [employer] 10/08/21 10/08/21 10/08/21 17:25 17:29 21:41 WBC RBC Hgb Hct MCV MCH MCHC RDW Plt Count MPV Immature Gran % (Auto) Neut % (Auto) Lymph % (Auto) [place] % (Auto) Eos % (Auto) Baso % (Auto) Lymph # (Auto) [place] # (Auto) Eos # (Auto) Baso # (Auto) Abs Immat Gran (auto) Absolute Neuts (auto) Absolute Nucleated RBC Nucleated RBC % (auto) PT INR APTT Sodium Potassium Chloride Carbon Dioxide Anion Gap BUN Creatinine Estim Creat Clear Calc Estimated GFR POC Glucose 58 L* 27 L* Random Glucose Lactic Acid Calcium Magnesium Total Bilirubin AST ALT Alkaline Phosphatase Troponin I High Sens B-Natriuretic Peptide Total Protein Albumin Urine Color YELLOW Urine Appearance CLEAR Urine pH 6.0 Ur Specific [place] 1.020 Urine Protein NEG Urine Glucose (UA) NEG Urine Ketones NEG Urine Blood TRACE Urine Nitrite NEG Ur Leukocyte Esterase NEG Urine RBC 0 Urine WBC 1-4 Ur Squamous Epith Cells 2+ Urine Bacteria 1+ COVID-19 (DENY) COVID-19 Clin Com 10/08/21 10/09/21 10/09/21 22:33 00:29 04:11 WBC RBC Hgb Hct MCV MCH MCHC RDW Plt Count MPV Immature Gran % (Auto) Neut % (Auto) Lymph % (Auto) [place] % (Auto) Eos % (Auto) Baso % (Auto) Lymph # (Auto) [place] # (Auto) Eos # (Auto) Baso # (Auto) Abs Immat Gran (auto) Absolute Neuts (auto) Absolute Nucleated RBC Nucleated RBC % (auto) PT INR APTT Sodium Potassium Chloride Carbon Dioxide Anion Gap BUN Creatinine Estim Creat Clear Calc Estimated GFR POC Glucose 118 H 151 H 134 H Random Glucose Lactic Acid Calcium Magnesium Total Bilirubin AST ALT Alkaline Phosphatase Troponin I High Sens B-Natriuretic Peptide Total Protein Albumin Urine Color Urine Appearance Urine pH Ur Specific [place] Urine Protein Urine Glucose (UA) Urine Ketones Urine Blood Urine Nitrite Ur Leukocyte Esterase Urine RBC Urine WBC Ur Squamous Epith Cells Urine Bacteria COVID-19 (DENY) COVID-19 Clin Com 10/09/21 07:10 WBC RBC Hgb Hct MCV MCH MCHC RDW Plt Count MPV Immature Gran % (Auto) Neut % (Auto) Lymph % (Auto) [place] % (Auto) Eos % (Auto) Baso % (Auto) Lymph # (Auto) [place] # (Auto) Eos # (Auto) Baso # (Auto) Abs Immat Gran (auto) Absolute Neuts (auto) Absolute Nucleated RBC Nucleated RBC % (auto) PT INR APTT Sodium Potassium Chloride Carbon Dioxide Anion Gap BUN Creatinine Estim Creat Clear Calc Estimated GFR POC Glucose 85 Random Glucose Lactic Acid Calcium Magnesium Total Bilirubin AST ALT Alkaline Phosphatase Troponin I High Sens B-Natriuretic Peptide Total Protein Albumin Urine Color Urine Appearance Urine pH Ur Specific [place] Urine Protein Urine Glucose (UA) Urine Ketones Urine Blood Urine Nitrite Ur Leukocyte Esterase Urine RBC Urine WBC Ur Squamous Epith Cells Urine Bacteria COVID-19 (DENY) COVID-19 Clin Com Discharge Plan Discharge Anticipated Discharge Date/Time: 10/09/21 08:30 Discharge Diagnosis: Hypoglycemia Referrals: Tam Corea MD [Primary Care Provider] - Discharge Medications: Continued penicillin V potassium 250 mg tablet 250 mg PO BID furosemide 40 mg tablet 40 tab PO BID@0900,1800 levothyroxine 175 mcg tablet 175 mcg PO DAILY@0600 clonazepam 0.5 mg tablet 0.5 mg PO BID amitriptyline 50 mg tablet 25 mg PO DAILY citalopram 20 mg tablet 20 mg PO DAILY simvastatin 20 mg tablet 20 mg PO BEDTIME chlordiazepoxide HCl 10 mg capsule 10 mg PO BEDTIME hydroxychloroquine 200 mg tablet 200 mg PO BID insulin glargine [Lantus Solostar U-100 Insulin] 100 unit/mL (3 mL) insulin pen 80 unit subcut BEDTIME Simbrinza 1-0.2 % drops,suspension 1 drp ophthalmic-Right BID Rocklatan 0.02-0.005 % drops 1 drp ophthalmic (eye) BEDTIME multivitamin Tablet 1 tab PO DAILY aspirin 325 mg Tablet 325 mg PO DAILY docusate sodium 100 mg Tablet 100 mg PO DAILY Discontinued glipizide 10 mg tablet 10 mg PO DAILY insulin lispro protamin-lispro 100 unit/mL (75-25) insulin pen 7 - 15 ea subcut TIDAC Januvia 100 mg tablet 100 mg PO DAILY Diet: Advance to usual diet Activity on Discharge: As tolerated Stand Alone Forms: Patient Portal Discharge page Care Plan Goals: prevent Hypoglycemia Health Concerns: Diabetes with hypoglycemia Plan of Treatment: take insulin as directed, stop taking Glipizide Assessment: as above
[2021-10-09] MEDS: Acetaminophen 325 MG TABLET 650 MG PO (10:24)
[2021-10-09 11:41] LABS: Glucose, Whole Blood 101 mg/dL (60-115)
[2021-10-09 11:44] VITALS: BP 125/67; PULSE 83; RESP 18; TEMP 36.3; O2SAT 93
--- NOTE | 2021-10-09 15:31 | P.PNIM_ITS ---
Subjective Subjective Date of Service: 10/09/21 Interval History: f/u on hypOglycemia interval history: no further low sugars, highest glucose sof 101. At home on Lantus 80 at HS, Lispro sliding scale 7 to 15, Januvia 100 daily and Glipizide 10 bid Review of Systems no fever no sob Physical Exam Vital Signs: Vital Signs: Last Vital Signs Temp 97.4 F 10/09/21 11:44 Pulse 83 10/09/21 11:44 Resp 18 10/09/21 11:44 BP 125/67 10/09/21 11:44 Pulse Ox 93 10/09/21 11:44 O2 Del Method 10/09/21 11:44 O2 Flow Rate 2 10/09/21 11:44 BMI result Body Mass Index 54.0 Const: Other: General: AO X 3, no acute distress Resp: CTA bilateral CVS: S1,S2,RRR GI: +BS, NT, no distention Skin: No rash Neuro: motor grossly intact Psych: appropriate affect Objective Data Active Medications Acetaminophen (Acetaminophen 325 Mg Tablet) 650 mg PO Q6H PRN PRN Reason: Pain, Mild (Pain Scale 1-3) Last Admin: 10/09/21 10:24 Dose: 650 mg Documented By: ALISON Heparin Sodium (Porcine) (Heparin Sodium,Porcine 5,000 Unit/Ml Vial) 5,000 unit SUBCUT Q12H [facility] Last Admin: 10/09/21 05:50 Dose: 5,000 unit Documented By: ROCHELLE Insulin Human Lispro (Insulin Lispro 100 Unit/Ml 3 Ml Vial) 0 unit SUBCUT QIDACHS [facility]; Protocol Last Admin: 10/09/21 12:07 Dose: Not Given Documented By: ALISON Non-Admin Reason: No Insulin Coverage Melatonin (Melatonin 3 Mg Tablet) 6 mg PO BEDTIME PRN PRN Reason: Insomnia Last Admin: 10/09/21 01:48 Dose: 6 mg Documented By: ROCHELLE Pharmacy Consult (Consult Rx Perform Med Rec) 1 each MISCELLANE ONCE PRN PRN Reason: Consult order Sodium Chloride (0.9 % Sodium Chloride Flush 3 Ml Syringe) 3 ml IVFLUSH QSHIFT [facility] Last Admin: 10/09/21 08:21 Dose: 3 ml Documented By: ALISON Labs CBC & Chem 7: 10/08/21 12:22 10/08/21 12:05 Labs: Laboratory Results - last 24 hr 10/08/21 10/08/21 10/08/21 15:04 16:09 17:25 POC Glucose 97 58 L* Troponin I High Sens 67.8 H* Urine Color Urine Appearance Urine pH Ur Specific [place] Urine Protein Urine Glucose (UA) Urine Ketones Urine Blood Urine Nitrite Ur Leukocyte Esterase Urine RBC Urine WBC Ur Squamous Epith Cells Urine Bacteria 10/08/21 10/08/21 10/08/21 17:29 21:41 22:33 POC Glucose 27 L* 118 H Troponin I High Sens Urine Color YELLOW Urine Appearance CLEAR Urine pH 6.0 Ur Specific [place] 1.020 Urine Protein NEG Urine Glucose (UA) NEG Urine Ketones NEG Urine Blood TRACE Urine Nitrite NEG Ur Leukocyte Esterase NEG Urine RBC 0 Urine WBC 1-4 Ur Squamous Epith Cells 2+ Urine Bacteria 1+ 10/09/21 10/09/21 10/09/21 00:29 04:11 07:10 POC Glucose 151 H 134 H 85 Troponin I High Sens Urine Color Urine Appearance Urine pH Ur Specific [place] Urine Protein Urine Glucose (UA) Urine Ketones Urine Blood Urine Nitrite Ur Leukocyte Esterase Urine RBC Urine WBC Ur Squamous Epith Cells Urine Bacteria 10/09/21 11:30 POC Glucose 101 Troponin I High Sens Urine Color Urine Appearance Urine pH Ur Specific [place] Urine Protein Urine Glucose (UA) Urine Ketones Urine Blood Urine Nitrite Ur Leukocyte Esterase Urine RBC Urine WBC Ur Squamous Epith Cells Urine Bacteria Assessment and Plan (1) Hypoglycemia: Status: Acute (2) Diabetes mellitus with insulin therapy: Status: Acute Plan 1/ Hypoglycemia resolving, off all meds with glucose 101.. continue holding Lantus 80 at HS, Lispro sliding scale 7 to 15, Januvia 100 d aily and Glipizide 10 bid.. Restart Lantus at modest dose tonight Continue meds for HLD, hypothyroidism, Observe for one more day Quality Stroke Does the patient have a stroke diagnosis?: No VTE Prior VTE?: No VTE Risk Level:: Medical - moderate - high VTE Device Contraindication: Treatment Not Indicated VTE Drug Contraindication: N/A - Med Ordered
[2021-10-09 17:40] LABS: Glucose, Whole Blood 114 mg/dL (60-115)
[2021-10-09 19:05] VITALS: BP 149/68; PULSE 84; RESP 18; TEMP 36.4; O2SAT 100
--- NOTE | 2021-10-09 19:31 | PC.NURSE ---
Alert and oriented. C/O headache, prn tylenol given with good effect. VSS, afebrile, no acute resp. distress noted. No apparent s/sx of hypoglycemia noted. Assist x1 with ADLs. Bed in low position, call light within reach. Will continue to monitor and treat per plan of care.
[2021-10-09] MEDS: Insulin Lispro 100 UNIT/ML 3 ML VIAL SUBCUT (21:04)
[2021-10-09 21:09] LABS: Glucose, Whole Blood 167 mg/dL (60-115)
[2021-10-09 23:36] VITALS: BP 154/61; PULSE 95; RESP 18; TEMP 36.4; O2SAT 96
[2021-10-10] VITALS (7 sets, daily range): BP systolic 122–179; BP diastolic 57–85; PULSE 85–106; RESP 18; TEMP 36.3–36.8; O2SAT 96–99
[2021-10-10] MEDS: Heparin Sodium,Porcine 5,000 UNIT/ML VIAL 5000 UNIT SUBCUT ×2 (05:51→18:43)
[2021-10-10 07:44] LABS: Glucose, Whole Blood 107 mg/dL (60-115)
[2021-10-10 09:10] LABS: Estimated Average Glucose 117 mg/dL; Hemoglobin A1c % 5.7 %
[2021-10-10] MEDS: clonazePAM 0.5 MG TABLET PO ×2 (09:53→21:31)
[2021-10-10] MEDS: Aspirin 325 MG TABLET PO (09:53)
[2021-10-10] MEDS: Amitriptyline HCl 25 MG TABLET PO (09:53)
[2021-10-10] MEDS: Hydroxychloroquine Sulfate 200 MG TABLET PO ×2 (09:53→21:31)
[2021-10-10] MEDS: 0.9 % Sodium Chloride Flush 3 ML SYRINGE IVFLUSH ×3 (09:55→21:33)
[2021-10-10] MEDS: Escitalopram Oxalate 10 MG TABLET PO (10:25)
[2021-10-10] MEDS: Docusate Sodium 100 MG CAPSULE PO (10:25)
[2021-10-10] MEDS: Multivitamin TABLET 1 TAB PO (10:25)
[2021-10-10] MEDS: Levothyroxine Sodium 175 MCG TABLET PO (10:25)
--- NOTE | 2021-10-10 11:00 | HO.PM.IMPN ---
Subjective Subjective Date of Service: 10/10/21 Interval History: f/u on hypOglycemia interval history: no further low sugars, highest glucose sof 101. At home on Lantus 80 at HS, Lispro sliding scale 7 to 15, Januvia 100 daily and Glipizide 10 bid Review of Systems no fever no sob Physical Exam Vital Signs: Vital Signs: Last Vital Signs Temp 98.1 F 10/10/21 07:29 Pulse 100 10/10/21 07:29 Resp 18 10/10/21 07:29 BP 122/58 L 10/10/21 03:34 Pulse Ox 97 10/10/21 07:29 O2 Del Method 10/10/21 07:29 O2 Flow Rate 2 10/10/21 03:34 BMI result Body Mass Index 54.0 Const: Other: General: AO X 3, no acute distress Resp: CTA bilateral CVS: S1,S2,RRR GI: +BS, NT, no distention Skin: No rash Neuro: motor grossly intact Psych: appropriate affect Objective Data Active Medications Acetaminophen (Acetaminophen 325 Mg Tablet) 650 mg PO Q6H PRN PRN Reason: Pain, Mild (Pain Scale 1-3) Last Admin: 10/09/21 10:24 Dose: 650 mg Documented By: ALISON Amitriptyline HCl (Amitriptyline Hcl 25 Mg Tablet) 25 mg PO DAILY [facility] Last Admin: 10/10/21 09:53 Dose: 25 mg Documented By: MARCO Aspirin (Aspirin 325 Mg Tablet) 325 mg PO DAILY [facility] Last Admin: 10/10/21 09:53 Dose: 325 mg Documented By: MARCO Atorvastatin Calcium (Atorvastatin Calcium 10 Mg Tablet) 10 mg PO BEDTIME [facility] Chlordiazepoxide HCl (Chlordiazepoxide Hcl 5 Mg Capsule) 10 mg PO BEDTIME [facility] Clonazepam (Clonazepam 0.5 Mg Tablet) 0.5 mg PO BID [facility] Last Admin: 10/10/21 09:53 Dose: 0.5 mg Documented By: MARCO Docusate Sodium (Docusate Sodium 100 Mg Capsule) 100 mg PO DAILY [facility] Last Admin: 10/10/21 10:25 Dose: 100 mg Documented By: MARCO Escitalopram Oxalate (Escitalopram Oxalate 10 Mg Tablet) 10 mg PO DAILY [facility] Last Admin: 10/10/21 10:25 Dose: 10 mg Documented By: MARCO Furosemide (Furosemide 40 Mg Tablet) 1,600 mg PO BID@0900,1800 [facility]; Protocol Heparin Sodium (Porcine) (Heparin Sodium,Porcine 5,000 Unit/Ml Vial) 5,000 unit SUBCUT Q12H [facility] Last Admin: 10/10/21 05:51 Dose: 5,000 unit Documented By: REFUGIO Hydroxychloroquine Sulfate (Hydroxychloroquine Sulfate 200 Mg Tablet) 200 mg PO BID [facility] Last Admin: 10/10/21 09:53 Dose: 200 mg Documented By: MARCO Insulin Glargine (Insulin Glargine,Hum.Rec.Anlog 100 Unit/Ml 10 Ml Vial) 80 unit SUBCUT BEDTIME [facility] Insulin Human Lispro (Insulin Lispro 100 Unit/Ml 3 Ml Vial) 0 unit SUBCUT QIDACHS [facility]; Protocol Last Admin: 10/10/21 07:52 Dose: Not Given Documented By: MARCO Non-Admin Reason: No Insulin Coverage Levothyroxine Sodium (Levothyroxine Sodium 175 Mcg Tablet) 175 mcg PO DAILY@0600 [facility] Last Admin: 10/10/21 10:25 Dose: 175 mcg Documented By: MARCO Melatonin (Melatonin 3 Mg Tablet) 6 mg PO BEDTIME PRN PRN Reason: Insomnia Last Admin: 10/09/21 23:42 Dose: 6 mg Documented By: REFUGIO Multivitamins/Vitamin C (Multivitamin Tablet) 1 tab PO DAILY [facility] Last Admin: 10/10/21 10:25 Dose: 1 tab Documented By: MARCO Non-Formulary Medication (Brinzolamide-Brimonidine [Simbrinza]) 1 drop EYE-RIGHT BID [facility] Non-Formulary Medication (Netarsudil-Latanoprost [Rocklatan]) 1 drop EYE-BOTH BEDTIME [facility] Pharmacy Consult (Consult Rx Perform Med Rec) 1 each MISCELLANE ONCE PRN PRN Reason: Consult order Sitagliptin Phosphate (Sitagliptin Phosphate 100 Mg Tablet) 100 mg PO DAILY [facility] Sodium Chloride (0.9 % Sodium Chloride Flush 3 Ml Syringe) 3 ml IVFLUSH QSHIFT [facility] Last Admin: 10/10/21 09:55 Dose: 3 ml Documented By: MARCO Labs CBC & Chem 7: 10/08/21 12:22 10/08/21 12:05 Labs: Laboratory Results - last 24 hr 10/09/21 10/09/21 10/09/21 11:30 17:37 20:54 POC Glucose 101 114 167 H Estimat Average Glucose Hemoglobin A1c % 10/10/21 10/10/21 07:39 08:25 POC Glucose 107 Estimat Average Glucose 117 Hemoglobin A1c % 5.7 Microbiology Microbiology Results: Microbiology 10/08/21 16:01 Blood Culture - Preliminary Blood - Venous No growth after 24 hours. 10/08/21 15:34 Blood Culture - Preliminary Blood - Venous No growth after 24 hours. Assessment and Plan (1) Hypoglycemia: Status: Acute (2) Diabetes mellitus with insulin therapy: Status: Acute Plan 1/ Hypoglycemia resolving, off all meds with glucose 101..She's been off meds for 2 days and sugars are normal , Hgb A1C is 5.7, will continue holding meds and do SSI PRN Continue meds for HLD, hypothyroidism, Observe for one more day She states that her household is positive for covid and is concern, will test for covid, Get PT eval Quality Stroke Does the patient have a stroke diagnosis?: No VTE Prior VTE?: No VTE Risk Level:: Medical - moderate - high VTE Device Contraindication: Treatment Not Indicated VTE Drug Contraindication: N/A - Med Ordered
[2021-10-10 11:41] LABS: Glucose, Whole Blood 149 mg/dL (60-115)
[2021-10-10 12:35] LABS: COVID-19 Test Positive (Negative); IDNOW Serial# 55D5AD1C
[2021-10-10 16:14] LABS: Glucose, Whole Blood 155 mg/dL (60-115)
[2021-10-10 21:30] LABS: Glucose, Whole Blood 142 mg/dL (60-115)
[2021-10-10] MEDS: Atorvastatin Calcium 10 MG TABLET PO (21:31)
[2021-10-10] MEDS: chlordiazePOXIDE HCl 5 MG CAPSULE 10 MG PO (21:31)
[2021-10-11] MEDS: Acetaminophen 325 MG TABLET 650 MG PO (03:23)
[2021-10-11 04:00] VITALS: BP 130/64; PULSE 97; RESP 18; TEMP 37.4; O2SAT 94
[2021-10-11] MEDS: Levothyroxine Sodium 175 MCG TABLET PO (06:00)
[2021-10-11] MEDS: Heparin Sodium,Porcine 5,000 UNIT/ML VIAL 5000 UNIT SUBCUT ×2 (06:00→19:00)
[2021-10-11 07:33] VITALS: BP 138/68; PULSE 98; RESP 20; TEMP 37; O2SAT 97
[2021-10-11 07:49] LABS: Glucose, Whole Blood 162 mg/dL (60-115)
[2021-10-11] MEDS: clonazePAM 0.5 MG TABLET PO ×2 (09:57→20:56)
[2021-10-11] MEDS: Escitalopram Oxalate 10 MG TABLET PO (09:57)
[2021-10-11] MEDS: Aspirin 325 MG TABLET PO (09:57)
[2021-10-11] MEDS: Amitriptyline HCl 25 MG TABLET PO (09:58)
[2021-10-11] MEDS: Dorzolamide HCl 2 % Ophth Sol 10 ML DRPBTL 1 DROP EYE-RIGHT ×2 (09:58→20:57)
[2021-10-11] MEDS: Hydroxychloroquine Sulfate 200 MG TABLET PO ×2 (09:58→20:56)
[2021-10-11] MEDS: Docusate Sodium 100 MG CAPSULE PO (09:58)
[2021-10-11] MEDS: Multivitamin TABLET 1 TAB PO (09:59)
[2021-10-11] MEDS: Brimonidine Tartrate 0.2% Oph 5 ML BOTTLE 1 DROP EYE-RIGHT ×2 (09:59→20:57)
[2021-10-11] MEDS: 0.9 % Sodium Chloride Flush 3 ML SYRINGE IVFLUSH ×3 (10:00→20:58)
[2021-10-11] MEDS: Insulin Lispro 100 UNIT/ML 3 ML VIAL SUBCUT (10:00)
--- NOTE | 2021-10-11 10:01 | HO.PM.IMPN ---
Subjective Subjective Date of Service: 10/11/21 Interval History: f/u on hypOglycemia interval history: no further low sugars, highest glucose sof 101. At home on Lantus 80 at HS, Lispro sliding scale 7 to 15, Januvia 100 daily and Glipizide 10 bid Review of Systems no fever no sob Physical Exam Vital Signs: Vital Signs: Last Vital Signs Temp 98.6 F 10/11/21 07:33 Pulse 98 10/11/21 07:33 Resp 20 10/11/21 07:33 BP 138/68 10/11/21 07:33 Pulse Ox 97 10/11/21 07:33 O2 Del Method 10/11/21 07:33 O2 Flow Rate 4 10/11/21 07:33 BMI result Body Mass Index 54.0 Const: Other: General: AO X 3, no acute distress Resp: CTA bilateral CVS: S1,S2,RRR GI: +BS, NT, no distention Skin: No rash Neuro: motor grossly intact Psych: appropriate affect Objective Data Active Medications Acetaminophen (Acetaminophen 325 Mg Tablet) 650 mg PO Q6H PRN PRN Reason: Pain, Mild (Pain Scale 1-3) Last Admin: 10/11/21 03:23 Dose: 650 mg Documented By: RUSS Amitriptyline HCl (Amitriptyline Hcl 25 Mg Tablet) 25 mg PO DAILY [facility] Last Admin: 10/11/21 09:58 Dose: 25 mg Documented By: NIKI Aspirin (Aspirin 325 Mg Tablet) 325 mg PO DAILY [facility] Last Admin: 10/11/21 09:57 Dose: 325 mg Documented By: NIKI Atorvastatin Calcium (Atorvastatin Calcium 10 Mg Tablet) 10 mg PO BEDTIME [facility] Last Admin: 10/10/21 21:31 Dose: 10 mg Documented By: RUSS Brimonidine Tartrate (Brimonidine Tartrate 0.2% Oph 5 Ml Bottle) 1 drop EYE-RIGHT BID [facility] Last Admin: 10/11/21 09:59 Dose: 1 drop Documented By: NIKI Chlordiazepoxide HCl (Chlordiazepoxide Hcl 5 Mg Capsule) 10 mg PO BEDTIME [facility] Last Admin: 10/10/21 21:31 Dose: 10 mg Documented By: RUSS Clonazepam (Clonazepam 0.5 Mg Tablet) 0.5 mg PO BID [facility] Last Admin: 10/11/21 09:57 Dose: 0.5 mg Documented By: NIKI Docusate Sodium (Docusate Sodium 100 Mg Capsule) 100 mg PO DAILY [facility] Last Admin: 10/11/21 09:58 Dose: 100 mg Documented By: NIKI Dorzolamide HCl (Dorzolamide Hcl 2 % Ophth Mona 10 Ml Drpbtl) 1 drop EYE-RIGHT BID [facility] Last Admin: 10/11/21 09:58 Dose: 1 drop Documented By: NIKI Escitalopram Oxalate (Escitalopram Oxalate 10 Mg Tablet) 10 mg PO DAILY [facility] Last Admin: 10/11/21 09:57 Dose: 10 mg Documented By: NIKI Heparin Sodium (Porcine) (Heparin Sodium,Porcine 5,000 Unit/Ml Vial) 5,000 unit SUBCUT Q12H [facility] Last Admin: 10/11/21 06:00 Dose: 5,000 unit Documented By: RUSS Hydroxychloroquine Sulfate (Hydroxychloroquine Sulfate 200 Mg Tablet) 200 mg PO BID [facility] Last Admin: 10/11/21 09:58 Dose: 200 mg Documented By: NIKI Insulin Glargine (Insulin Glargine,Hum.Rec.Anlog 100 Unit/Ml 10 Ml Vial) 80 unit SUBCUT BEDTIME [facility] Last Admin: 10/10/21 21:32 Dose: Not Given Documented By: RUSS Non-Admin Reason: Physician Held Med Insulin Human Lispro (Insulin Lispro 100 Unit/Ml 3 Ml Vial) 0 unit SUBCUT QIDACHS [facility]; Protocol Last Admin: 10/11/21 10:00 Dose: 2 unit Documented By: NIKI Latanoprost (Latanoprost 0.005 % Ophth Mona 2.5 Ml Drops) 1 drop EYE-BOTH BEDTIME [facility] Last Admin: 10/10/21 22:23 Dose: Not Given Documented By: RUSS Non-Admin Reason: none in pt bin Levothyroxine Sodium (Levothyroxine Sodium 175 Mcg Tablet) 175 mcg PO DAILY@0600 [facility] Last Admin: 10/11/21 06:00 Dose: 175 mcg Documented By: RUSS Melatonin (Melatonin 3 Mg Tablet) 6 mg PO BEDTIME PRN PRN Reason: Insomnia Last Admin: 10/09/21 23:42 Dose: 6 mg Documented By: HO.ODRISM Multivitamins/Vitamin C (Multivitamin Tablet) 1 tab PO DAILY [facility] Last Admin: 10/11/21 09:59 Dose: 1 tab Documented By: NIKI Pharmacy Consult (Consult Rx Perform Med Rec) 1 each MISCELLANE ONCE PRN PRN Reason: Consult order Sitagliptin Phosphate (Sitagliptin Phosphate 100 Mg Tablet) 100 mg PO DAILY [facility] Sodium Chloride (0.9 % Sodium Chloride Flush 3 Ml Syringe) 3 ml IVFLUSH QSHIFT [facility] Last Admin: 10/11/21 10:00 Dose: 3 ml Documented By: NIKI Labs CBC & Chem 7: 10/08/21 12:22 10/08/21 12:05 Labs: Laboratory Results - last 24 hr 10/10/21 10/10/21 10/10/21 11:21 11:22 16:11 POC Glucose 149 H 155 H COVID-19 (DENY) Positive A COVID-19 Clin Com See Note 10/10/21 10/11/21 21:27 07:35 POC Glucose 142 H 162 H COVID-19 (DENY) COVID-19 Clin Com Microbiology Microbiology Results: Microbiology 10/08/21 16:01 Blood Culture - Preliminary Blood - Venous No growth after 48 hours. 10/08/21 15:34 Blood Culture - Preliminary Blood - Venous No growth after 48 hours. Assessment and Plan (1) Obesity: Status: Acute (2) Hypoglycemia: Status: Acute (3) COVID: Status: Acute Plan 1/ Hypoglycemia resolving, off all meds with glucose 101..She's been off meds for 2 days and sugars are normal , Hgb A1C is 5.7, will continue holding meds and do SSI PRN Continue meds for HLD, hypothyroidism, Observe for one more day She states that her household is positive for covid and is concern, so was tested for covid and come back posit=vik Get PT eval Quality Stroke Does the patient have a stroke diagnosis?: No VTE Prior VTE?: No VTE Risk Level:: Medical - moderate - high VTE Device Contraindication: Treatment Not Indicated VTE Drug Contraindication: N/A - Med Ordered
--- NOTE | 2021-10-11 10:59 | HO.PM.IMPN ---
Subjective Subjective Date of Service: 10/11/21 Interval History: Interval history: f/u on covid PNA, hyperglycemia Interval history: was admitted for hyperglycemia which was resolved and has tested positive for ocovid, with some overnight sob, incrase O2 requirement Review of Systems sob no fever Physical Exam Vital Signs: Vital Signs: Last Vital Signs Temp 98.6 F 10/11/21 07:33 Pulse 98 10/11/21 07:33 Resp 20 10/11/21 07:33 BP 138/68 10/11/21 07:33 Pulse Ox 97 10/11/21 07:33 O2 Del Method 10/11/21 07:33 O2 Flow Rate 4 10/11/21 07:33 BMI result Body Mass Index 54.0 Const: Other: General: AO X 3, no acute distress Resp: CTA bilateral CVS: S1,S2,RRR GI: +BS, NT, no distention Skin: No rash Neuro: motor grossly intact Psych: appropriate affect Objective Data Active Medications Acetaminophen (Acetaminophen 325 Mg Tablet) 650 mg PO Q6H PRN PRN Reason: Pain, Mild (Pain Scale 1-3) Last Admin: 10/11/21 03:23 Dose: 650 mg Documented By: RUSS Amitriptyline HCl (Amitriptyline Hcl 25 Mg Tablet) 25 mg PO DAILY [facility] Last Admin: 10/11/21 09:58 Dose: 25 mg Documented By: NIKI Aspirin (Aspirin 325 Mg Tablet) 325 mg PO DAILY [facility] Last Admin: 10/11/21 09:57 Dose: 325 mg Documented By: NIKI Atorvastatin Calcium (Atorvastatin Calcium 10 Mg Tablet) 10 mg PO BEDTIME [facility] Last Admin: 10/10/21 21:31 Dose: 10 mg Documented By: RUSS Brimonidine Tartrate (Brimonidine Tartrate 0.2% Oph 5 Ml Bottle) 1 drop EYE-RIGHT BID [facility] Last Admin: 10/11/21 09:59 Dose: 1 drop Documented By: NIKI Chlordiazepoxide HCl (Chlordiazepoxide Hcl 5 Mg Capsule) 10 mg PO BEDTIME [facility] Last Admin: 10/10/21 21:31 Dose: 10 mg Documented By: RUSS Clonazepam (Clonazepam 0.5 Mg Tablet) 0.5 mg PO BID [facility] Last Admin: 10/11/21 09:57 Dose: 0.5 mg Documented By: NIKI Dexamethasone (Dexamethasone 6 Mg Tablet) 6 mg PO DAILY [facility] Docusate Sodium (Docusate Sodium 100 Mg Capsule) 100 mg PO DAILY [facility] Last Admin: 10/11/21 09:58 Dose: 100 mg Documented By: NIKI Dorzolamide HCl (Dorzolamide Hcl 2 % Ophth Mona 10 Ml Drpbtl) 1 drop EYE-RIGHT BID [facility] Last Admin: 10/11/21 09:58 Dose: 1 drop Documented By: NIKI Escitalopram Oxalate (Escitalopram Oxalate 10 Mg Tablet) 10 mg PO DAILY [facility] Last Admin: 10/11/21 09:57 Dose: 10 mg Documented By: NIKI Heparin Sodium (Porcine) (Heparin Sodium,Porcine 5,000 Unit/Ml Vial) 5,000 unit SUBCUT Q12H [facility] Last Admin: 10/11/21 06:00 Dose: 5,000 unit Documented By: RUSS Hydroxychloroquine Sulfate (Hydroxychloroquine Sulfate 200 Mg Tablet) 200 mg PO BID [facility] Last Admin: 10/11/21 09:58 Dose: 200 mg Documented By: NIKI Insulin Glargine (Insulin Glargine,Hum.Rec.Anlog 100 Unit/Ml 10 Ml Vial) 80 unit SUBCUT BEDTIME [facility] Last Admin: 10/10/21 21:32 Dose: Not Given Documented By: RUSS Non-Admin Reason: Physician Held Med Insulin Human Lispro (Insulin Lispro 100 Unit/Ml 3 Ml Vial) 0 unit SUBCUT QIDACHS [facility]; Protocol Last Admin: 10/11/21 10:00 Dose: 2 unit Documented By: NIKI Latanoprost (Latanoprost 0.005 % Ophth Mona 2.5 Ml Drops) 1 drop EYE-BOTH BEDTIME [facility] Last Admin: 10/10/21 22:23 Dose: Not Given Documented By: RUSS Non-Admin Reason: none in pt bin Levothyroxine Sodium (Levothyroxine Sodium 175 Mcg Tablet) 175 mcg PO DAILY@0600 [facility] Last Admin: 10/11/21 06:00 Dose: 175 mcg Documented By: RUSS Melatonin (Melatonin 3 Mg Tablet) 6 mg PO BEDTIME PRN PRN Reason: Insomnia Last Admin: 10/09/21 23:42 Dose: 6 mg Documented By: REFUGIO Multivitamins/Vitamin C (Multivitamin Tablet) 1 tab PO DAILY [facility] Last Admin: 10/11/21 09:59 Dose: 1 tab Documented By: NIKI Pharmacy Consult (Consult Rx Perform Med Rec) 1 each MISCELLANE ONCE PRN PRN Reason: Consult order Sitagliptin Phosphate (Sitagliptin Phosphate 100 Mg Tablet) 100 mg PO DAILY [facility] Sodium Chloride (0.9 % Sodium Chloride Flush 3 Ml Syringe) 3 ml IVFLUSH QSHIFT [facility] Last Admin: 10/11/21 10:00 Dose: 3 ml Documented By: NIKI Labs CBC & Chem 7: 10/08/21 12:22 10/08/21 12:05 Labs: Laboratory Results - last 24 hr 10/10/21 10/10/21 10/10/21 11:21 11:22 16:11 POC Glucose 149 H 155 H COVID-19 (DENY) Positive A COVID-19 Clin Com See Note 10/10/21 10/11/21 21:27 07:35 POC Glucose 142 H 162 H COVID-19 (DENY) COVID-19 Clin Com Microbiology Microbiology Results: Microbiology 10/08/21 16:01 Blood Culture - Preliminary Blood - Venous No growth after 48 hours. 10/08/21 15:34 Blood Culture - Preliminary Blood - Venous No growth after 48 hours. Assessment and Plan (1) Obesity: Status: Acute (2) Hypoglycemia: Status: Acute (3) COVID: Status: Acute Plan 71/F with HL, Hypothyroidism, morbid obesity admitted initially for observation for hypoglycemia and has tested positive for covid (after learning that her whole household tested positive), her initial screen was negative 2 days earlier. Some symptoms and incrase O2 requirment--she's on oxygen at home at baseline Covid 19 with some symptoms- -continue O2, adjust for sat of 94 -add dexamethasone -Remdesevir x Hypoglycemia resolved, FS 162. Hgb A1C is 5.7, will continue holding meds and do SSI PRN, goucose may go higher with steroid and may need additioanl insulin Continue meds for HLD, hypothyroidism, continue home meds Morbid obesity--weight loss advised Change to inpatient due to covid with symptoms and starting treatment with IV remdesevir will ne rehab at discharge heparin for DVT prophylaxis Quality Stroke Does the patient have a stroke diagnosis?: No VTE Prior VTE?: No VTE Risk Level:: Medical - moderate - high VTE Device Contraindication: Treatment Not Indicated VTE Drug Contraindication: N/A - Med Ordered
[2021-10-11 11:22] VITALS: BP 150/69; PULSE 87; RESP 20; TEMP 36.9; O2SAT 99
[2021-10-11 11:32] LABS: Glucose, Whole Blood 167 mg/dL (60-115)
[2021-10-11 11:48] LABS: Anion Gap 12 (12-20); Blood Urea Nitrogen 17 mg/dL (9-16); Calcium 8.8 mg/dL (8.4-10.2); Carbon Dioxide 31 mmol/L (22-29); Chloride 100 mmol/L (96-108); Creatinine Clr Calc Pharmacy 51.5; Estimated Glomerular Filt Rate 37; Glucose Random 183 mg/dL (60-115); Sodium 139 mmol/L (135-145)
[2021-10-11] MEDS: Remdesivir 200 MG in 0.9 % Sodium Chloride 210 ML 105 MG IV (13:58)
[2021-10-11 15:59] LABS: Glucose, Whole Blood 125 mg/dL (60-115)
[2021-10-11 16:00] VITALS: BP 161/76; PULSE 86; RESP 19; TEMP 36.6; O2SAT 99
[2021-10-11] MEDS: dexAMETHasone 6 MG TABLET PO (19:00)
[2021-10-11 20:00] VITALS: BP 186/72; PULSE 91; RESP 17; TEMP 36.6; O2SAT 93
[2021-10-11 20:13] LABS: Glucose, Whole Blood 202 mg/dL (60-115)
[2021-10-11] MEDS: chlordiazePOXIDE HCl 5 MG CAPSULE 10 MG PO (20:55)
[2021-10-11] MEDS: Atorvastatin Calcium 10 MG TABLET PO (20:56)
[2021-10-11] MEDS: Latanoprost 0.005 % Ophth Sol 2.5 ML DROPS 1 DROP EYE-BOTH (20:57)
[2021-10-11] MEDS: Melatonin 3 MG TABLET 6 MG PO (21:02)
[2021-10-11 23:33] VITALS: BP 199/83; PULSE 97; RESP 18; TEMP 36.8; O2SAT 97
[2021-10-11] MEDS: amLODIPine Besylate 5 MG TABLET PO (23:56)
[2021-10-12] VITALS (7 sets, daily range): BP systolic 121–162; BP diastolic 64–78; PULSE 72–90; RESP 18–20; TEMP 36.2–37; O2SAT 94–98
--- NOTE | 2021-10-12 02:33 | MHC.PIE ---
Patient insisted on sleeping in recliner. Encouraged patient to lay in bed with HOB >30deg. Patient became very SOB / tachypneic with pivot from chair to bed. Patient attempted to lay in bed and reported feeling very uncomfortable - not able to breath well enough while in bed. Patient reports she sleeps in recliner at home. 2 persona assist back to chair. Work of breathing recovers within a few min after activity. Patient still on supplemental oxygen. Patient refusing high fall risk precautions - chair alarm. Patient reeducated about high fall risk precautions. Telesitter camera placed in room for safety. Patient does know limitations and agreed to use call morocho.
[2021-10-12] MEDS: Heparin Sodium,Porcine 5,000 UNIT/ML VIAL 5000 UNIT SUBCUT ×2 (05:43→17:13)
[2021-10-12] MEDS: Levothyroxine Sodium 175 MCG TABLET PO (05:45)
[2021-10-12 07:50] LABS: Glucose, Whole Blood 247 mg/dL (60-115)
[2021-10-12] MEDS: Aspirin 325 MG TABLET PO (08:35)
[2021-10-12] MEDS: Escitalopram Oxalate 10 MG TABLET PO (08:35)
[2021-10-12] MEDS: SITagliptin Phosphate 100 MG TABLET PO (08:36)
[2021-10-12] MEDS: Hydroxychloroquine Sulfate 200 MG TABLET PO ×2 (08:36→22:08)
[2021-10-12] MEDS: Amitriptyline HCl 25 MG TABLET PO (08:36)
[2021-10-12] MEDS: Docusate Sodium 100 MG CAPSULE PO (08:36)
[2021-10-12] MEDS: Multivitamin TABLET 1 TAB PO (08:36)
[2021-10-12] MEDS: Acetaminophen 325 MG TABLET 650 MG PO (08:36)
[2021-10-12] MEDS: clonazePAM 0.5 MG TABLET PO ×2 (08:36→22:08)
[2021-10-12] MEDS: dexAMETHasone 6 MG TABLET PO (08:36)
[2021-10-12] MEDS: Insulin Lispro 100 UNIT/ML 3 ML VIAL SUBCUT ×4 (08:36→22:50)
[2021-10-12] MEDS: 0.9 % Sodium Chloride Flush 3 ML SYRINGE IVFLUSH ×3 (08:37→22:09)
[2021-10-12] MEDS: Brimonidine Tartrate 0.2% Oph 5 ML BOTTLE 1 DROP EYE-RIGHT ×2 (08:38→22:10)
[2021-10-12] MEDS: Dorzolamide HCl 2 % Ophth Sol 10 ML DRPBTL 1 DROP EYE-RIGHT ×2 (08:39→22:10)
--- NOTE | 2021-10-12 10:06 | P.PNIM_ITS ---
Subjective Subjective Date of Service: 10/12/21 Interval History: Interval history: f/u on covid , hyperglycemia Interval history: was admitted for hyperglycemia which was resolved and then tested positive for covid with some symptoms Review of Systems sob no fever Physical Exam Vital Signs: Vital Signs: Last Vital Signs Temp 97.1 F 10/12/21 08:57 Pulse 80 10/12/21 08:57 Resp 18 10/12/21 08:57 BP 150/78 H 10/12/21 08:57 Pulse Ox 97 10/12/21 08:57 O2 Del Method 10/12/21 08:57 O2 Flow Rate 3 10/12/21 08:57 BMI result Body Mass Index 54.0 Const: Other: General: AO X 3, no acute distress Resp: CTA bilateral CVS: S1,S2,RRR GI: +BS, NT, no distention Skin: No rash Neuro: motor grossly intact Psych: appropriate affect Objective Data Active Medications Acetaminophen (Acetaminophen 325 Mg Tablet) 650 mg PO Q6H PRN PRN Reason: Pain, Mild (Pain Scale 1-3) Last Admin: 10/12/21 08:36 Dose: 650 mg Documented By: ALISON Amitriptyline HCl (Amitriptyline Hcl 25 Mg Tablet) 25 mg PO DAILY [facility] Last Admin: 10/12/21 08:36 Dose: 25 mg Documented By: ALISON Aspirin (Aspirin 325 Mg Tablet) 325 mg PO DAILY [facility] Last Admin: 10/12/21 08:35 Dose: 325 mg Documented By: ALISON Atorvastatin Calcium (Atorvastatin Calcium 10 Mg Tablet) 10 mg PO BEDTIME [facility] Last Admin: 10/11/21 20:56 Dose: 10 mg Documented By: MARIA ALEJANDRA Brimonidine Tartrate (Brimonidine Tartrate 0.2% Oph 5 Ml Bottle) 1 drop EYE- RIGHT BID [facility] Last Admin: 10/12/21 08:38 Dose: 1 drop Documented By: ALISON Chlordiazepoxide HCl (Chlordiazepoxide Hcl 5 Mg Capsule) 10 mg PO BEDTIME [facility] Last Admin: 10/11/21 20:55 Dose: 10 mg Documented By: MARIA ALEJANDRA Clonazepam (Clonazepam 0.5 Mg Tablet) 0.5 mg PO BID [facility] Last Admin: 10/12/21 08:36 Dose: 0.5 mg Documented By: ALISON Dexamethasone (Dexamethasone 6 Mg Tablet) 6 mg PO DAILY [facility] Last Admin: 10/12/21 08:36 Dose: 6 mg Documented By: ALISON Docusate Sodium (Docusate Sodium 100 Mg Capsule) 100 mg PO DAILY [facility] Last Admin: 10/12/21 08:36 Dose: 100 mg Documented By: ALISON Dorzolamide HCl (Dorzolamide Hcl 2 % Ophth Mona 10 Ml Drpbtl) 1 drop EYE-RIGHT BID [facility] Last Admin: 10/12/21 08:39 Dose: 1 drop Documented By: ALISON Escitalopram Oxalate (Escitalopram Oxalate 10 Mg Tablet) 10 mg PO DAILY [facility] Last Admin: 10/12/21 08:35 Dose: 10 mg Documented By: ALISON Heparin Sodium (Porcine) (Heparin Sodium,Porcine 5,000 Unit/Ml Vial) 5,000 unit SUBCUT Q12H [facility] Last Admin: 10/12/21 05:43 Dose: 5,000 unit Documented By: DANA Hydroxychloroquine Sulfate (Hydroxychloroquine Sulfate 200 Mg Tablet) 200 mg PO BID [facility] Last Admin: 10/12/21 08:36 Dose: 200 mg Documented By: ALISON Remdesivir 100 mg/ Sodium (Chloride) 230 mls @ 115 mls/hr IV Q24H [facility] Stop: 10/15/21 14:59 Insulin Glargine (Insulin Glargine,Hum.Rec.Anlog 100 Unit/Ml 10 Ml Vial) 80 unit SUBCUT BEDTIME [facility] Last Admin: 10/11/21 20:57 Dose: Not Given Documented By: MARIA ALEJANDRA Non-Admin Reason: not eating Insulin Human Lispro (Insulin Lispro 100 Unit/Ml 3 Ml Vial) 0 unit SUBCUT QIDACHS [facility]; Protocol Last Admin: 10/12/21 08:36 Dose: 4 unit Documented By: ALISON Latanoprost (Latanoprost 0.005 % Ophth Mona 2.5 Ml Drops) 1 drop EYE-BOTH BEDTIME [facility] Last Admin: 10/11/21 20:57 Dose: 1 drop Documented By: MARIA ALEJANDRA Levothyroxine Sodium (Levothyroxine Sodium 175 Mcg Tablet) 175 mcg PO DAILY@0600 [facility] Last Admin: 10/12/21 05:45 Dose: 175 mcg Documented By: TATIANNATEKMallorie Melatonin (Melatonin 3 Mg Tablet) 6 mg PO BEDTIME PRN PRN Reason: Insomnia Last Admin: 10/11/21 21:02 Dose: 6 mg Documented By: MARIA ALEJANDRA Multivitamins/Vitamin C (Multivitamin Tablet) 1 tab PO DAILY [facility] Last Admin: 10/12/21 08:36 Dose: 1 tab Documented By: ALISON Pharmacy Consult (Consult Rx Perform Med Rec) 1 each MISCELLANE ONCE PRN PRN Reason: Consult order Sitagliptin Phosphate (Sitagliptin Phosphate 100 Mg Tablet) 100 mg PO DAILY [facility] Last Admin: 10/12/21 08:36 Dose: 100 mg Documented By: ALISON Sodium Chloride (0.9 % Sodium Chloride Flush 3 Ml Syringe) 3 ml IVFLUSH QSHIFT [facility] Last Admin: 10/12/21 08:37 Dose: 3 ml Documented By: ALISON Labs CBC & Chem 7: 10/08/21 12:22 10/11/21 11:21 Labs: Laboratory Results - last 24 hr 10/11/21 10/11/21 10/11/21 11:21 11:23 15:45 Anion Gap 12 Estim Creat Clear Calc 51.5 Estimated GFR 37 POC Glucose 167 H 125 H Random Glucose 183 H Calcium 8.8 10/11/21 10/12/21 19:41 07:28 Anion Gap Estim Creat Clear Calc Estimated GFR POC Glucose 202 H 247 H Random Glucose Calcium Assessment and Plan (1) Obesity: Status: Acute (2) Hypoglycemia: Status: Acute (3) COVID: Status: Acute Plan 71/F with HL, Hypothyroidism, morbid obesity admitted initially for observation for hypoglycemia and has tested positive for covid (after learning that her whole household tested positive), her initial screen was negative 2 days earlier. Some symptoms and incrase O2 requirment--she's on oxygen at home at baseline Covid 19 with some symptoms--likely contracted covid before coming to hospital as whole house was positive -continue O2, adjust for sat of 94, she is not on O2 at home -continue dexamethasone -Remdesevir D2 -wean off O2 Hypoglycemia resolved, FS 162. Hgb A1C is 5.7, will continue holding meds and do SSI PRN, glucose up with steroid... Add lantus 10 Continue meds for HLD, hypothyroidism, continue home meds Morbid obesity--weight loss advised Inpatient need due to covid with symptoms and on treatment with IV remdesevir reassess for need for rehab at home heparin for DVT prophylaxis Quality Stroke Does the patient have a stroke diagnosis?: No VTE Prior VTE?: No VTE Risk Level:: Medical - moderate - high VTE Device Contraindication: Treatment Not Indicated VTE Drug Contraindication: N/A - Med Ordered
[2021-10-12 11:51] LABS: Glucose, Whole Blood 222 mg/dL (60-115)
[2021-10-12] MEDS: Remdesivir 100 MG in 0.9 % Sodium Chloride 230 ML 115 MG IV (12:36)
--- NOTE | 2021-10-12 14:54 | MHC.CM.PN ---
Female 71 DX Covid+ Per MD rounds no discharge today. DP home no services family will transport.
[2021-10-12 15:49] LABS: Glucose, Whole Blood 248 mg/dL (60-115)
[2021-10-12] MEDS: chlordiazePOXIDE HCl 5 MG CAPSULE 10 MG PO (22:08)
[2021-10-12] MEDS: Atorvastatin Calcium 10 MG TABLET PO (22:08)
[2021-10-12] MEDS: Latanoprost 0.005 % Ophth Sol 2.5 ML DROPS 1 DROP EYE-BOTH (22:11)
[2021-10-12 22:23] LABS: Glucose, Whole Blood 328 mg/dL (60-115)
[2021-10-12] MEDS: Insulin Glargine,Hum.rec.anlog 100 UNIT/ML 10 ML VIAL 80 UNIT SUBCUT (22:51)
[2021-10-13 04:00] VITALS: BP 166/77; PULSE 78; RESP 20; TEMP 37; O2SAT 99
[2021-10-13] MEDS: Levothyroxine Sodium 175 MCG TABLET PO (06:05)
[2021-10-13] MEDS: Heparin Sodium,Porcine 5,000 UNIT/ML VIAL 5000 UNIT SUBCUT ×2 (06:06→18:05)
[2021-10-13 07:18] LABS: Glucose, Whole Blood 259 mg/dL (60-115)
[2021-10-13 07:27] VITALS: BP 174/76; PULSE 70; RESP 18; TEMP 36.6; O2SAT 99
[2021-10-13] MEDS: Insulin Lispro 100 UNIT/ML 3 ML VIAL SUBCUT ×4 (07:36→20:28)
[2021-10-13] MEDS: Docusate Sodium 100 MG CAPSULE PO (07:37)
[2021-10-13] MEDS: SITagliptin Phosphate 100 MG TABLET PO (07:37)
[2021-10-13] MEDS: Amitriptyline HCl 25 MG TABLET PO (07:37)
[2021-10-13] MEDS: 0.9 % Sodium Chloride Flush 3 ML SYRINGE IVFLUSH ×2 (07:37→16:47)
[2021-10-13] MEDS: Aspirin 325 MG TABLET PO (07:38)
[2021-10-13] MEDS: clonazePAM 0.5 MG TABLET PO ×2 (07:38→20:28)
[2021-10-13] MEDS: Brimonidine Tartrate 0.2% Oph 5 ML BOTTLE 1 DROP EYE-RIGHT ×2 (07:38→20:30)
[2021-10-13] MEDS: dexAMETHasone 6 MG TABLET PO (07:38)
[2021-10-13] MEDS: Hydroxychloroquine Sulfate 200 MG TABLET PO ×2 (07:38→20:28)
[2021-10-13] MEDS: Dorzolamide HCl 2 % Ophth Sol 10 ML DRPBTL 1 DROP EYE-RIGHT ×2 (07:39→20:30)
[2021-10-13] MEDS: Multivitamin TABLET 1 TAB PO (07:39)
[2021-10-13] MEDS: Escitalopram Oxalate 10 MG TABLET PO (07:39)
[2021-10-13 11:38] LABS: Glucose, Whole Blood 256 mg/dL (60-115)
[2021-10-13 11:43] VITALS: BP 174/81; RESP 18; TEMP 36.2; O2SAT 100
--- NOTE | 2021-10-13 13:07 | P.PNIM_ITS ---
Subjective Subjective Date of Service: 10/20/21 Interval History: Interval history: f/u on covid , hyperglycemia Interval history: HypOglycemia resolved, no sob, Review of Systems sob no fever Physical Exam Vital Signs: Vital Signs: Last Vital Signs Temp 97.2 F 10/13/21 11:43 Pulse 70 10/13/21 07:27 Resp 18 10/13/21 11:43 BP 174/81 H 10/13/21 11:43 Pulse Ox 100 10/13/21 11:43 O2 Del Method 10/13/21 11:43 O2 Flow Rate 3 10/13/21 11:43 BMI result Body Mass Index 54.0 Const: Other: General: AO X 3, no acute distress Resp: CTA bilateral CVS: S1,S2,RRR GI: +BS, NT, no distention Skin: No rash Neuro: motor grossly intact Psych: appropriate affect Objective Data Active Medications Acetaminophen (Acetaminophen 325 Mg Tablet) 650 mg PO Q6H PRN PRN Reason: Pain, Mild (Pain Scale 1-3) Last Admin: 10/12/21 08:36 Dose: 650 mg Documented By: ALISON Amitriptyline HCl (Amitriptyline Hcl 25 Mg Tablet) 25 mg PO DAILY [facility] Last Admin: 10/13/21 07:37 Dose: 25 mg Documented By: MALLORIE Aspirin (Aspirin 325 Mg Tablet) 325 mg PO DAILY [facility] Last Admin: 10/13/21 07:38 Dose: 325 mg Documented By: MALLORIE Atorvastatin Calcium (Atorvastatin Calcium 10 Mg Tablet) 10 mg PO BEDTIME [facility] Last Admin: 10/12/21 22:08 Dose: 10 mg Documented By: LUIS ARMANDO Brimonidine Tartrate (Brimonidine Tartrate 0.2% Oph 5 Ml Bottle) 1 drop EYE- RIGHT BID [facility] Last Admin: 10/13/21 07:38 Dose: 1 drop Documented By: MALLORIE Chlordiazepoxide HCl (Chlordiazepoxide Hcl 5 Mg Capsule) 10 mg PO BEDTIME [facility] Last Admin: 10/12/21 22:08 Dose: 10 mg Documented By: LUIS ARMANDO Clonazepam (Clonazepam 0.5 Mg Tablet) 0.5 mg PO BID [facility] Last Admin: 10/13/21 07:38 Dose: 0.5 mg Documented By: MALLORIE Dexamethasone (Dexamethasone 6 Mg Tablet) 6 mg PO DAILY [facility] Last Admin: 10/13/21 07:38 Dose: 6 mg Documented By: MALLORIE Docusate Sodium (Docusate Sodium 100 Mg Capsule) 100 mg PO DAILY [facility] Last Admin: 10/13/21 07:37 Dose: 100 mg Documented By: MALLORIE Dorzolamide HCl (Dorzolamide Hcl 2 % Ophth Mona 10 Ml Drpbtl) 1 drop EYE-RIGHT BID [facility] Last Admin: 10/13/21 07:39 Dose: 1 drop Documented By: MALLORIE Escitalopram Oxalate (Escitalopram Oxalate 10 Mg Tablet) 10 mg PO DAILY [facility] Last Admin: 10/13/21 07:39 Dose: 10 mg Documented By: MALLORIE Heparin Sodium (Porcine) (Heparin Sodium,Porcine 5,000 Unit/Ml Vial) 5,000 unit SUBCUT Q12H [facility] Last Admin: 10/13/21 06:06 Dose: 5,000 unit Documented By: ALIZA Hydroxychloroquine Sulfate (Hydroxychloroquine Sulfate 200 Mg Tablet) 200 mg PO BID [facility] Last Admin: 10/13/21 07:38 Dose: 200 mg Documented By: MALLORIE Remdesivir 100 mg/ Sodium (Chloride) 230 mls @ 115 mls/hr IV Q24H [facility] Stop: 10/15/21 14:59 Last Infusion: 10/12/21 17:13 Dose: 0 mls/hr Documented By: ALISON Insulin Glargine (Insulin Glargine,Hum.Rec.Anlog 100 Unit/Ml 10 Ml Vial) 80 unit SUBCUT BEDTIME [facility] Last Admin: 10/12/21 22:51 Dose: 80 unit Documented By: LUIS ARMANDO Insulin Human Lispro (Insulin Lispro 100 Unit/Ml 3 Ml Vial) 0 unit SUBCUT QIDACHS [facility]; Protocol Last Admin: 10/13/21 12:21 Dose: 6 unit Documented By: MALLORIE Latanoprost (Latanoprost 0.005 % Ophth Mona 2.5 Ml Drops) 1 drop EYE-BOTH BEDTIME [facility] Last Admin: 10/12/21 22:11 Dose: 1 drop Documented By: LUIS ARMANDO Levothyroxine Sodium (Levothyroxine Sodium 175 Mcg Tablet) 175 mcg PO DAILY@0600 [facility] Last Admin: 10/13/21 06:05 Dose: 175 mcg Documented By: ALIZA Melatonin (Melatonin 3 Mg Tablet) 6 mg PO BEDTIME PRN PRN Reason: Insomnia Last Admin: 10/11/21 21:02 Dose: 6 mg Documented By: MARIA ALEJANDRA Multivitamins/Vitamin C (Multivitamin Tablet) 1 tab PO DAILY [facility] Last Admin: 10/13/21 07:39 Dose: 1 tab Documented By: MALLORIE Pharmacy Consult (Consult Rx Perform Med Rec) 1 each MISCELLANE ONCE PRN PRN Reason: Consult order Sitagliptin Phosphate (Sitagliptin Phosphate 100 Mg Tablet) 100 mg PO DAILY [facility] Last Admin: 10/13/21 07:37 Dose: 100 mg Documented By: MALLORIE Sodium Chloride (0.9 % Sodium Chloride Flush 3 Ml Syringe) 3 ml IVFLUSH QSHIFT [facility] Last Admin: 10/13/21 07:37 Dose: 3 ml Documented By: MALLORIE Labs CBC & Chem 7: 10/16/21 06:32 10/16/21 06:32 Labs: Laboratory Results - last 24 hr 10/12/21 10/12/21 10/13/21 15:43 22:19 07:12 POC Glucose 248 H 328 H 259 H 10/13/21 11:34 POC Glucose 256 H Assessment and Plan (1) Obesity: Status: Acute (2) Hypoglycemia: Status: Acute (3) COVID: Status: Acute Plan 71/F with HL, Hypothyroidism, morbid obesity admitted initially for observation for hypoglycemia and has tested positive for covid (after learning that her whole household tested positive), her initial screen was negative 2 days earlier. Some symptoms and incrase O2 requirment--she's on oxygen at home at baseline Covid 19 with some symptoms--likely contracted covid before coming to hospital as whole house was positive -continue O2, adjust for sat of 94, she is not on O2 at home -continue dexamethasone -Remdesevir D2 -wean off O2 Hypoglycemia resolved, FS 259. Hgb A1C is 5.7, received Lantus 80 last and getting Sitagliptin, Stop Glipizide Morbid obesity--weight loss advised Inpatient need due to covid with symptoms and on treatment with IV remdesevir reassess for need for rehab at home heparin for DVT prophylaxis Quality Stroke Does the patient have a stroke diagnosis?: No VTE Prior VTE?: No VTE Risk Level:: Medical - moderate - high VTE Device Contraindication: Treatment Not Indicated VTE Drug Contraindication: N/A - Med Ordered
[2021-10-13] MEDS: Remdesivir 100 MG in 0.9 % Sodium Chloride 230 ML 115 MG IV (14:16)
[2021-10-13 16:00] VITALS: BP 166/84; PULSE 75; RESP 16; TEMP 36.2; O2SAT 100
[2021-10-13 16:09] LABS: Glucose, Whole Blood 307 mg/dL (60-115)
--- NOTE | 2021-10-13 18:27 | PC.NURSE ---
Pt refusing to get in bed d/t morbid obesity and feeling extreme discomfort in bed
--- NOTE | 2021-10-13 18:30 | PC.NURSE ---
Pt refusing to get in bed d/t morbid obesity and feeling extreme discomfort.Pt feels uncomfortable with the size of the bed. Pt has been educated on the risks of pressure injuries and skin breakdown. Assessed the pts comfort and pain level throughout the shift. Repositioned q2hr in the recliner with pillows. pt denies any pain or discomfort of her bottom and verbally understands the risks of skin breakdown.
[2021-10-13 19:59] VITALS: BP 174/71; PULSE 76; RESP 16; TEMP 36.1; O2SAT 100
[2021-10-13 20:01] LABS: Glucose, Whole Blood 372 mg/dL (60-115)
[2021-10-13] MEDS: chlordiazePOXIDE HCl 5 MG CAPSULE 10 MG PO (20:28)
[2021-10-13] MEDS: Atorvastatin Calcium 10 MG TABLET PO (20:28)
[2021-10-13] MEDS: Insulin Glargine,Hum.rec.anlog 100 UNIT/ML 10 ML VIAL 80 UNIT SUBCUT (20:28)
[2021-10-13] MEDS: Latanoprost 0.005 % Ophth Sol 2.5 ML DROPS 1 DROP EYE-BOTH (20:30)
[2021-10-13 23:27] VITALS: BP 178/83; PULSE 74; RESP 17; TEMP 36.4; O2SAT 100
[2021-10-14] VITALS (7 sets, daily range): BP systolic 117–171; BP diastolic 59–82; PULSE 67–120; RESP 14–20; TEMP 36.3–36.9; O2SAT 95–100
[2021-10-14] MEDS: 0.9 % Sodium Chloride Flush 3 ML SYRINGE IVFLUSH ×4 (00:20→22:17)
[2021-10-14] MEDS: Heparin Sodium,Porcine 5,000 UNIT/ML VIAL 5000 UNIT SUBCUT ×2 (05:56→17:11)
[2021-10-14] MEDS: Levothyroxine Sodium 175 MCG TABLET PO (05:56)
[2021-10-14 07:26] LABS: Glucose, Whole Blood 235 mg/dL (60-115)
[2021-10-14] MEDS: Brimonidine Tartrate 0.2% Oph 5 ML BOTTLE 1 DROP EYE-RIGHT ×2 (08:08→22:15)
[2021-10-14] MEDS: Insulin Lispro 100 UNIT/ML 3 ML VIAL SUBCUT ×4 (08:08→22:16)
[2021-10-14] MEDS: clonazePAM 0.5 MG TABLET PO ×2 (08:09→22:14)
[2021-10-14] MEDS: Dorzolamide HCl 2 % Ophth Sol 10 ML DRPBTL 1 DROP EYE-RIGHT ×2 (08:09→22:15)
[2021-10-14] MEDS: Hydroxychloroquine Sulfate 200 MG TABLET PO ×2 (08:09→22:14)
[2021-10-14] MEDS: SITagliptin Phosphate 100 MG TABLET PO (08:09)
[2021-10-14] MEDS: Aspirin 325 MG TABLET PO (08:09)
[2021-10-14] MEDS: Multivitamin TABLET 1 TAB PO (08:09)
[2021-10-14] MEDS: Escitalopram Oxalate 10 MG TABLET PO (08:09)
[2021-10-14] MEDS: Docusate Sodium 100 MG CAPSULE PO (08:10)
[2021-10-14] MEDS: Amitriptyline HCl 25 MG TABLET PO (08:10)
[2021-10-14] MEDS: dexAMETHasone 6 MG TABLET PO (08:10)
[2021-10-14 10:34] LABS: Hematocrit 36.3 % (37.0-47.0); Mean Corpuscular HGB Conc 30.3 g/dl (31.0-35.0); Mean Corpuscular Volume 82.5 fL (80.0-98.0); Mean Platelet Volume 12.3 fL (9.4-12.3); Platelet Count 173 X10*3/uL (160-400); Red Cell Distribution Width 14.7 % (11.0-16.0)
[2021-10-14 10:51] LABS: Alanine Aminotransferase 15 U/L (0-31); Albumin Level 3.6 g/dL (3.5-5.0); Alkaline Phosphatase 70 U/L (39-117); Anion Gap 16 (12-20); Aspartate Amino Transferase 18 U/L (5-31); Bilirubin Total 0.3 mg/dL (0.0-1.0); Blood Urea Nitrogen 59 mg/dL (9-16); C Reactive Protein 5.36 mg/dL (< or = 0.50); Calcium 8.6 mg/dL (8.4-10.2); Carbon Dioxide 25 mmol/L (22-29); Chloride 100 mmol/L (96-108); Creatinine Clr Calc Pharmacy 47.2; Estimated Glomerular Filt Rate 34; Glucose Random 238 mg/dL (60-115); Potassium 5.1 mmol/L (3.3-5.1); Sodium 136 mmol/L (135-145); Total Protein 7.3 g/dL (6.5-8.0)
[2021-10-14 11:16] LABS: Glucose, Whole Blood 208 mg/dL (60-115)
--- NOTE | 2021-10-14 12:36 | P.PNIM_ITS ---
Subjective Subjective Date of Service: 10/14/21 Interval History: denies chest pain or dyspnea no fever now hyperglycemic Review of Systems Review of Systems: Yes all other systems are reviewed and are negative Physical Exam Vital Signs: Vital Signs: Last Vital Signs Temp 97.4 F 10/14/21 11:08 Pulse 73 10/14/21 11:08 Resp 18 10/14/21 11:08 BP 159/82 H 10/14/21 11:08 Pulse Ox 100 10/14/21 11:08 O2 Del Method 10/14/21 11:08 O2 Flow Rate 3 10/14/21 11:08 BMI result Body Mass Index 54.0 Gen: in no acute distress HEENT: sclera anicteric, moist mucus membranes Neck: supple Lungs: clear to auscultation bilaterally Heart: regular rate and rhythm, no murmurs Abd: soft, non-tender, non-distended, morbidly obese Ext: no edema Skin: warm/well-perfused Neuro: alert and oriented x3, no focal findings Psych: appropriate affect Objective Data Active Medications Acetaminophen (Acetaminophen 325 Mg Tablet) 650 mg PO Q6H PRN PRN Reason: Pain, Mild (Pain Scale 1-3) Last Admin: 10/12/21 08:36 Dose: 650 mg Documented By: ALISON Amitriptyline HCl (Amitriptyline Hcl 25 Mg Tablet) 25 mg PO DAILY [facility] Last Admin: 10/14/21 08:10 Dose: 25 mg Documented By: MALLORIE Aspirin (Aspirin 325 Mg Tablet) 325 mg PO DAILY [facility] Last Admin: 10/14/21 08:09 Dose: 325 mg Documented By: MALLORIE Atorvastatin Calcium (Atorvastatin Calcium 10 Mg Tablet) 10 mg PO BEDTIME [facility] Last Admin: 10/13/21 20:28 Dose: 10 mg Documented By: HARPER Brimonidine Tartrate (Brimonidine Tartrate 0.2% Oph 5 Ml Bottle) 1 drop EYE- RIGHT BID [facility] Last Admin: 10/14/21 08:08 Dose: 1 drop Documented By: MALLORIE Chlordiazepoxide HCl (Chlordiazepoxide Hcl 5 Mg Capsule) 10 mg PO BEDTIME [facility] Last Admin: 10/13/21 20:28 Dose: 10 mg Documented By: HARPER Clonazepam (Clonazepam 0.5 Mg Tablet) 0.5 mg PO BID [facility] Last Admin: 10/14/21 08:09 Dose: 0.5 mg Documented By: MALLORIE Dexamethasone (Dexamethasone 6 Mg Tablet) 6 mg PO DAILY [facility] Last Admin: 10/14/21 08:10 Dose: 6 mg Documented By: MALLORIE Docusate Sodium (Docusate Sodium 100 Mg Capsule) 100 mg PO DAILY [facility] Last Admin: 10/14/21 08:10 Dose: 100 mg Documented By: MALLORIE Dorzolamide HCl (Dorzolamide Hcl 2 % Ophth Mona 10 Ml Drpbtl) 1 drop EYE-RIGHT BID [facility] Last Admin: 10/14/21 08:09 Dose: 1 drop Documented By: MALLORIE Escitalopram Oxalate (Escitalopram Oxalate 10 Mg Tablet) 10 mg PO DAILY [facility] Last Admin: 10/14/21 08:09 Dose: 10 mg Documented By: MALLORIE Heparin Sodium (Porcine) (Heparin Sodium,Porcine 5,000 Unit/Ml Vial) 5,000 unit SUBCUT Q12H [facility] Last Admin: 10/14/21 05:56 Dose: 5,000 unit Documented By: JEANETTE Hydroxychloroquine Sulfate (Hydroxychloroquine Sulfate 200 Mg Tablet) 200 mg PO BID [facility] Last Admin: 10/14/21 08:09 Dose: 200 mg Documented By: MALLORIE Remdesivir 100 mg/ Sodium (Chloride) 230 mls @ 115 mls/hr IV Q24H [facility] Stop: 10/15/21 14:59 Last Infusion: 10/13/21 16:48 Dose: 0 mls/hr Documented By: MALLORIE Insulin Glargine (Insulin Glargine,Hum.Rec.Anlog 100 Unit/Ml 10 Ml Vial) 80 unit SUBCUT BEDTIME [facility] Last Admin: 10/13/21 20:28 Dose: 80 unit Documented By: HARPER Insulin Human Lispro (Insulin Lispro 100 Unit/Ml 3 Ml Vial) 0 unit SUBCUT [facility]; Protocol Last Admin: 10/14/21 11:37 Dose: 4 unit Documented By: MALLORIE Latanoprost (Latanoprost 0.005 % Ophth Mona 2.5 Ml Drops) 1 drop EYE-BOTH BEDTIME [facility] Last Admin: 10/13/21 20:30 Dose: 1 drop Documented By: HARPER Levothyroxine Sodium (Levothyroxine Sodium 175 Mcg Tablet) 175 mcg PO DAILY@0600 [facility] Last Admin: 10/14/21 05:56 Dose: 175 mcg Documented By: JEANETTE Melatonin (Melatonin 3 Mg Tablet) 6 mg PO BEDTIME PRN PRN Reason: Insomnia Last Admin: 10/11/21 21:02 Dose: 6 mg Documented By: MARIA ALEJANDRA Multivitamins/Vitamin C (Multivitamin Tablet) 1 tab PO DAILY [facility] Last Admin: 10/14/21 08:09 Dose: 1 tab Documented By: MALLORIE Pharmacy Consult (Consult Rx Perform Med Rec) 1 each MISCELLANE ONCE PRN PRN Reason: Consult order Sitagliptin Phosphate (Sitagliptin Phosphate 100 Mg Tablet) 100 mg PO DAILY [facility] Last Admin: 10/14/21 08:09 Dose: 100 mg Documented By: MALLORIE Sodium Chloride (0.9 % Sodium Chloride Flush 3 Ml Syringe) 3 ml IVFLUSH QSHIFT [facility] Last Admin: 10/14/21 08:08 Dose: 3 ml Documented By: MALLORIE Labs CBC & Chem 7: 10/14/21 10:10 10/14/21 10:10 Labs: Laboratory Results - last 24 hr 10/13/21 10/13/21 10/14/21 16:05 19:51 07:13 MCV MCH MCHC RDW Plt Count MPV Absolute Nucleated RBC Nucleated RBC % (auto) Anion Gap Estim Creat Clear Calc Estimated GFR POC Glucose 307 H 372 H* 235 H Random Glucose Calcium Total Bilirubin AST ALT Alkaline Phosphatase C-Reactive Protein Total Protein Albumin 10/14/21 10/14/21 10/14/21 10:10 10:10 11:10 MCV 82.5 MCH 25.0 L MCHC 30.3 L RDW 14.7 Plt Count 173 MPV 12.3 Absolute Nucleated RBC 0.000 Nucleated RBC % (auto) 0.0 Anion Gap 16 Estim Creat Clear Calc 47.2 Estimated GFR 34 POC Glucose 208 H Random Glucose 238 H Calcium 8.6 Total Bilirubin 0.3 AST 18 ALT 15 Alkaline Phosphatase 70 C-Reactive Protein 5.36 H Total Protein 7.3 Albumin 3.6 Microbiology Microbiology Results: Microbiology 10/08/21 16:01 Blood Culture - Final Blood - Venous No growth after 5 days. 10/08/21 15:34 Blood Culture - Final Blood - Venous No growth after 5 days. Assessment and Plan (1) Obesity: Status: Acute (2) Hypoglycemia: Status: Acute (3) COVID: Status: Acute Plan hospital d#4 71yo F with DM2, morbid obesity, HLD, hypothyroidism initially admitted for hypoglycemia then developed Covid-19 with hypoxia # Covid-19 infection - d#5/10 dexamethasone, d#4/5 remdesivir, isolation precautions, trend inflamma tory markers # acute hypoxic resp failure - wean O2 as tolerated, goal SaO2 94%+ # CKD3 - SCr close to baseline, avoid nephrotoxins # DM2 with hypoglycemia - hypoglycemia resolved, continue basal/bolus insulin + sitagliptin, d/c'd glipizide # HLD - statin # hypothyroidism - LT4 # morbid obesity - weight loss advised # VTE ppx: UFH # dispo: per PT: PT IS LOCO LIFT OOB AT BASELINE, MINIMALLY/ NONAMBULATORY, MOBILIZES VIA ELECTRIC SCOOTER. WILL NOT BE ABLE TO GET OOB DURING HOSPITALIZATION UNLESS HOYERED . REC HOME W/ RESUMPTION OF PREVIOUS SERVICES WHEN MEDICALLY CLEARED In my clinical judgment, the patient requires continued hospitalization for the following reasons: hypoxia Quality Stroke Does the patient have a stroke diagnosis?: No VTE Prior VTE?: No VTE Risk Level:: Medical - moderate - high VTE Device Contraindication: Treatment Not Indicated VTE Drug Contraindication: N/A - Med Ordered
[2021-10-14] MEDS: Remdesivir 100 MG in 0.9 % Sodium Chloride 230 ML 115 MG IV (12:56)
[2021-10-14 16:29] LABS: Glucose, Whole Blood 204 mg/dL (60-115)
[2021-10-14 19:36] LABS: Glucose, Whole Blood 322 mg/dL (60-115)
[2021-10-14] MEDS: Atorvastatin Calcium 10 MG TABLET PO (22:14)
[2021-10-14] MEDS: chlordiazePOXIDE HCl 5 MG CAPSULE 10 MG PO (22:14)
[2021-10-14] MEDS: Insulin Glargine,Hum.rec.anlog 100 UNIT/ML 10 ML VIAL 80 UNIT SUBCUT (22:15)
[2021-10-14] MEDS: Latanoprost 0.005 % Ophth Sol 2.5 ML DROPS 1 DROP EYE-BOTH (22:16)
[2021-10-15 03:18] VITALS: BP 163/71; PULSE 61; RESP 16; TEMP 36.4; O2SAT 100
[2021-10-15] MEDS: Levothyroxine Sodium 175 MCG TABLET PO (06:02)
[2021-10-15] MEDS: Heparin Sodium,Porcine 5,000 UNIT/ML VIAL 5000 UNIT SUBCUT ×2 (06:02→16:50)
[2021-10-15 07:37] LABS: Glucose, Whole Blood 209 mg/dL (60-115)
[2021-10-15 08:00] VITALS: BP 193/99; PULSE 65; RESP 17; TEMP 36.1; O2SAT 100
[2021-10-15] MEDS: Amitriptyline HCl 25 MG TABLET PO (08:46)
[2021-10-15] MEDS: Insulin Lispro 100 UNIT/ML 3 ML VIAL SUBCUT ×4 (08:46→20:58)
[2021-10-15] MEDS: SITagliptin Phosphate 100 MG TABLET PO (08:46)
[2021-10-15] MEDS: Hydroxychloroquine Sulfate 200 MG TABLET PO ×2 (08:46→20:57)
[2021-10-15] MEDS: 0.9 % Sodium Chloride Flush 3 ML SYRINGE IVFLUSH ×3 (08:46→21:04)
[2021-10-15] MEDS: dexAMETHasone 6 MG TABLET PO (08:46)
[2021-10-15] MEDS: Multivitamin TABLET 1 TAB PO (08:46)
[2021-10-15] MEDS: amLODIPine Besylate 5 MG TABLET PO (08:46)
[2021-10-15] MEDS: clonazePAM 0.5 MG TABLET PO ×2 (08:46→20:57)
[2021-10-15] MEDS: Docusate Sodium 100 MG CAPSULE PO (08:47)
[2021-10-15] MEDS: Aspirin 325 MG TABLET PO (08:47)
[2021-10-15] MEDS: Escitalopram Oxalate 10 MG TABLET PO (08:47)
[2021-10-15] MEDS: Dorzolamide HCl 2 % Ophth Sol 10 ML DRPBTL 1 DROP EYE-RIGHT ×2 (08:48→20:57)
[2021-10-15] MEDS: Brimonidine Tartrate 0.2% Oph 5 ML BOTTLE 1 DROP EYE-RIGHT ×2 (08:48→20:58)
[2021-10-15 09:33] VITALS: PULSE 66; PULSE 89; PULSE 92; O2SAT 86; O2SAT 88; O2SAT 90; O2SAT 93
--- NOTE | 2021-10-15 10:08 | P.PNIM_ITS ---
Subjective Subjective Date of Service: 10/15/21 Interval History: no chest pain, minimal cough, no dyspnea BP elevated qualifies for home O2 3L with activity Review of Systems Review of Systems: Yes all other systems are reviewed and are negative Physical Exam Vital Signs: Vital Signs: Last Vital Signs Temp 96.9 F 10/15/21 08:00 Pulse 65 10/15/21 08:00 Resp 17 10/15/21 08:00 BP 193/99 H 10/15/21 08:00 Pulse Ox 100 10/15/21 08:00 O2 Del Method 10/15/21 08:00 O2 Flow Rate 3 10/15/21 08:00 BMI result Body Mass Index 54.0 Gen: in no acute distress HEENT: sclera anicteric, moist mucus membranes Neck: supple Lungs: clear to auscultation bilaterally Heart: regular rate and rhythm, no murmurs Abd: soft, non-tender, non-distended, morbidly obese Ext: no edema Skin: warm/well-perfused Neuro: alert and oriented x3, no focal findings Psych: appropriate affect Objective Data Active Medications Acetaminophen (Acetaminophen 325 Mg Tablet) 650 mg PO Q6H PRN PRN Reason: Pain, Mild (Pain Scale 1-3) Last Admin: 10/12/21 08:36 Dose: 650 mg Documented By: ALISON Amitriptyline HCl (Amitriptyline Hcl 25 Mg Tablet) 25 mg PO DAILY [facility] Last Admin: 10/15/21 08:46 Dose: 25 mg Documented By: CHERRIE Amlodipine Besylate (Amlodipine Besylate 5 Mg Tablet) 5 mg PO DAILY [facility]; Protocol Last Admin: 10/15/21 08:46 Dose: 5 mg Documented By: CHERRIE Aspirin (Aspirin 325 Mg Tablet) 325 mg PO DAILY [facility] Last Admin: 10/15/21 08:47 Dose: 325 mg Documented By: CHERRIE Atorvastatin Calcium (Atorvastatin Calcium 10 Mg Tablet) 10 mg PO BEDTIME [facility] Last Admin: 10/14/21 22:14 Dose: 10 mg Documented By: LAM Brimonidine Tartrate (Brimonidine Tartrate 0.2% Oph 5 Ml Bottle) 1 drop EYE- RIGHT BID [facility] Last Admin: 10/15/21 08:48 Dose: 1 drop Documented By: CHERRIE Chlordiazepoxide HCl (Chlordiazepoxide Hcl 5 Mg Capsule) 10 mg PO BEDTIME [facility] Last Admin: 10/14/21 22:14 Dose: 10 mg Documented By: LAM Clonazepam (Clonazepam 0.5 Mg Tablet) 0.5 mg PO BID [facility] Last Admin: 10/15/21 08:46 Dose: 0.5 mg Documented By: CHERRIE Dexamethasone (Dexamethasone 6 Mg Tablet) 6 mg PO DAILY [facility] Last Admin: 10/15/21 08:46 Dose: 6 mg Documented By: CHERRIE Docusate Sodium (Docusate Sodium 100 Mg Capsule) 100 mg PO DAILY [facility] Last Admin: 10/15/21 08:47 Dose: 100 mg Documented By: CHERRIE Dorzolamide HCl (Dorzolamide Hcl 2 % Ophth Mona 10 Ml Drpbtl) 1 drop EYE-RIGHT BID [facility] Last Admin: 10/15/21 08:48 Dose: 1 drop Documented By: CHERRIE Escitalopram Oxalate (Escitalopram Oxalate 10 Mg Tablet) 10 mg PO DAILY [facility] Last Admin: 10/15/21 08:47 Dose: 10 mg Documented By: CHERRIE Heparin Sodium (Porcine) (Heparin Sodium,Porcine 5,000 Unit/Ml Vial) 5,000 unit SUBCUT Q12H [facility] Last Admin: 10/15/21 06:02 Dose: 5,000 unit Documented By: AKIL Hydroxychloroquine Sulfate (Hydroxychloroquine Sulfate 200 Mg Tablet) 200 mg PO BID [facility] Last Admin: 10/15/21 08:46 Dose: 200 mg Documented By: CHERRIE Remdesivir 100 mg/ Sodium (Chloride) 230 mls @ 115 mls/hr IV Q24H [facility] Stop: 10/15/21 14:59 Last Infusion: 10/14/21 17:59 Dose: 0 mls/hr Documented By: MALLORIE Insulin Glargine (Insulin Glargine,Hum.Rec.Anlog 100 Unit/Ml 10 Ml Vial) 80 unit SUBCUT BEDTIME [facility] Last Admin: 10/14/21 22:15 Dose: 1 unit Documented By: LAM Insulin Human Lispro (Insulin Lispro 100 Unit/Ml 3 Ml Vial) 0 unit SUBCUT QIDACHS [facility]; Protocol Last Admin: 10/15/21 08:46 Dose: 4 unit Documented By: CHERRIE Latanoprost (Latanoprost 0.005 % Ophth Mona 2.5 Ml Drops) 1 drop EYE-BOTH BEDTIME [facility] Last Admin: 10/14/21 22:16 Dose: 1 drop Documented By: LAM Levothyroxine Sodium (Levothyroxine Sodium 175 Mcg Tablet) 175 mcg PO DAILY@0600 [facility] Last Admin: 10/15/21 06:02 Dose: 175 mcg Documented By: AKIL Melatonin (Melatonin 3 Mg Tablet) 6 mg PO BEDTIME PRN PRN Reason: Insomnia Last Admin: 10/11/21 21:02 Dose: 6 mg Documented By: MARIA ALEJANDRA Multivitamins/Vitamin C (Multivitamin Tablet) 1 tab PO DAILY [facility] Last Admin: 10/15/21 08:46 Dose: 1 tab Documented By: CHERRIE Pharmacy Consult (Consult Rx Perform Med Rec) 1 each MISCELLANE ONCE PRN PRN Reason: Consult order Sitagliptin Phosphate (Sitagliptin Phosphate 100 Mg Tablet) 100 mg PO DAILY [facility] Last Admin: 10/15/21 08:46 Dose: 100 mg Documented By: CHERRIE Sodium Chloride (0.9 % Sodium Chloride Flush 3 Ml Syringe) 3 ml IVFLUSH QSHIFT [facility] Last Admin: 10/15/21 08:46 Dose: 3 ml Documented By: CHERRIE Labs CBC & Chem 7: 10/14/21 10:10 10/14/21 10:10 Labs: Laboratory Results - last 24 hr 10/14/21 10/14/21 10/14/21 10:10 10:10 11:10 MCV 82.5 MCH 25.0 L MCHC 30.3 L RDW 14.7 Plt Count 173 MPV 12.3 Absolute Nucleated RBC 0.000 Nucleated RBC % (auto) 0.0 Anion Gap 16 Estim Creat Clear Calc 47.2 Estimated GFR 34 POC Glucose 208 H Random Glucose 238 H Calcium 8.6 Total Bilirubin 0.3 AST 18 ALT 15 Alkaline Phosphatase 70 C-Reactive Protein 5.36 H Total Protein 7.3 Albumin 3.6 10/14/21 10/14/21 10/15/21 16:26 19:32 07:34 MCV MCH MCHC RDW Plt Count MPV Absolute Nucleated RBC Nucleated RBC % (auto) Anion Gap Estim Creat Clear Calc Estimated GFR POC Glucose 204 H 322 H 209 H Random Glucose Calcium Total Bilirubin AST ALT Alkaline Phosphatase C-Reactive Protein Total Protein Albumin Assessment and Plan (1) Obesity: Status: Acute (2) Hypoglycemia: Status: Acute (3) COVID: Status: Acute Plan hospital d#5 71yo F with DM2, morbid obesity, HLD, hypothyroidism initially admitted for hypoglycemia then developed Covid-19 with hypoxia # Covid-19 infection - d#6/10 dexamethasone, d#5/ remdesivir, isolation precautions, trend inflammatory markers # acute hypoxic resp failure - wean O2 as tolerated, goal SaO2 94%+, qualifies for home O2 3L with activity # CKD3 - SCr close to baseline, avoid nephrotoxins # DM2 with hypoglycemia - hypoglycemia resolved, continue basal/bolus insulin + sitagliptin, d/c'd glipizide # HLD - statin # hypothyroidism - LT4 # morbid obesity - weight loss advised # VTE ppx: UFH # dispo: per PT: PT IS LOCO LIFT OOB AT BASELINE, MINIMALLY/ NONAMBULATORY, MOBILIZES VIA ELECTRIC SCOOTER. WILL NOT BE ABLE TO GET OOB DURING HOSPITALIZATION UNLESS HOYERED . REC HOME W/ RESUMPTION OF PREVIOUS SERVICES WHEN MEDICALLY CLEARED In my clinical judgment, the patient requires continued hospitalization for the following reasons: hypoxia, IV remdesivir Quality Stroke Does the patient have a stroke diagnosis?: No VTE Prior VTE?: No VTE Risk Level:: Medical - moderate - high VTE Device Contraindication: Treatment Not Indicated VTE Drug Contraindication: N/A - Med Ordered
[2021-10-15 11:26] VITALS: BP 171/73; PULSE 64; RESP 18; TEMP 36.1; O2SAT 100
[2021-10-15 11:47] LABS: Glucose, Whole Blood 242 mg/dL (60-115)
[2021-10-15] MEDS: Remdesivir 100 MG in 0.9 % Sodium Chloride 230 ML 115 MG IV (13:07)
[2021-10-15 15:55] LABS: Glucose, Whole Blood 287 mg/dL (60-115)
[2021-10-15 16:00] VITALS: BP 190/80; PULSE 79; RESP 19; TEMP 36.2; O2SAT 100
[2021-10-15 20:00] VITALS: BP 182/64; PULSE 71; RESP 18; TEMP 36.3; O2SAT 97
[2021-10-15 20:41] LABS: Glucose, Whole Blood 349 mg/dL (60-115)
[2021-10-15] MEDS: Latanoprost 0.005 % Ophth Sol 2.5 ML DROPS 1 DROP EYE-BOTH (20:57)
[2021-10-15] MEDS: chlordiazePOXIDE HCl 5 MG CAPSULE 10 MG PO (20:57)
[2021-10-15] MEDS: Atorvastatin Calcium 10 MG TABLET PO (20:57)
[2021-10-15] MEDS: Insulin Glargine,Hum.rec.anlog 100 UNIT/ML 10 ML VIAL 80 UNIT SUBCUT (21:39)
[2021-10-16] VITALS: BP 142/56; PULSE 68; RESP 15; TEMP 37.1; O2SAT 100
[2021-10-16 04:00] VITALS: BP 140/72; PULSE 65; RESP 16; TEMP 36.2; O2SAT 100
[2021-10-16] MEDS: Levothyroxine Sodium 175 MCG TABLET PO (05:25)
[2021-10-16] MEDS: Heparin Sodium,Porcine 5,000 UNIT/ML VIAL 5000 UNIT SUBCUT (05:25)
[2021-10-16 06:54] LABS: Hematocrit 37.2 % (37.0-47.0); Hemoglobin 11.3 g/dl (12.0-16.0); Mean Corpuscular HGB Conc 30.4 g/dl (31.0-35.0); Mean Corpuscular Hemoglobin 24.8 pg (27.0-33.0); Mean Corpuscular Volume 81.6 fL (80.0-98.0); Platelet Count 197 X10*3/uL (160-400); Red Blood Count 4.56 X10*6/uL (4.20-5.50); Red Cell Distribution Width 14.6 % (11.0-16.0); White Blood Count 10.2 X10*3/uL (4.8-10.8)
[2021-10-16 07:26] LABS: Alanine Aminotransferase 16 U/L (0-31); Albumin Level 3.6 g/dL (3.5-5.0); Alkaline Phosphatase 66 U/L (39-117); Anion Gap 14 (12-20); Aspartate Amino Transferase 18 U/L (5-31); Bilirubin Total 0.3 mg/dL (0.0-1.0); Blood Urea Nitrogen 54 mg/dL (9-16); C Reactive Protein 2.32 mg/dL (< or = 0.50); Calcium 8.4 mg/dL (8.4-10.2); Carbon Dioxide 26 mmol/L (22-29); Chloride 102 mmol/L (96-108); Creatinine Clr Calc Pharmacy 52.3; Estimated Glomerular Filt Rate 38; Glucose Random 156 mg/dL (60-115); Potassium 4.8 mmol/L (3.3-5.1); Sodium 137 mmol/L (135-145); Total Protein 7.2 g/dL (6.5-8.0)
[2021-10-16 08:00] VITALS: BP 186/86; PULSE 70; RESP 18; TEMP 36.1; O2SAT 100
[2021-10-16 08:01] LABS: Glucose, Whole Blood 132 mg/dL (60-115)
[2021-10-16] MEDS: dexAMETHasone 6 MG TABLET PO (09:03)
[2021-10-16] MEDS: clonazePAM 0.5 MG TABLET PO (09:03)
[2021-10-16] MEDS: Escitalopram Oxalate 10 MG TABLET PO (09:03)
[2021-10-16] MEDS: Docusate Sodium 100 MG CAPSULE PO (09:03)
[2021-10-16] MEDS: amLODIPine Besylate 5 MG TABLET PO (09:03)
[2021-10-16] MEDS: Amitriptyline HCl 25 MG TABLET PO (09:03)
[2021-10-16] MEDS: Hydroxychloroquine Sulfate 200 MG TABLET PO (09:03)
[2021-10-16] MEDS: 0.9 % Sodium Chloride Flush 3 ML SYRINGE IVFLUSH (09:03)
[2021-10-16] MEDS: Multivitamin TABLET 1 TAB PO (09:03)
[2021-10-16] MEDS: SITagliptin Phosphate 100 MG TABLET PO (09:03)
[2021-10-16] MEDS: Dorzolamide HCl 2 % Ophth Sol 10 ML DRPBTL 1 DROP EYE-RIGHT (09:11)
[2021-10-16] MEDS: Brimonidine Tartrate 0.2% Oph 5 ML BOTTLE 1 DROP EYE-RIGHT (09:12)
[2021-10-16] MEDS: Aspirin 325 MG TABLET PO (09:13)
--- NOTE | 2021-10-16 10:01 | P.F2F_ITS ---
Service Date Service Date: 10/16/21 Encounter Date of encounter: 10/16/21 Reasons for Services Signs and symptoms assessed: hypoxia Reason for chcf: diabetic teaching, monitoring of unstable blood sugar, medication management, teach disease management and other (home oxygen start) Reason for physical therapy: home safety and mobility, therapeutic exercises, gait/transfer training, assess need for DME, ADL training and energy conservation MD Overseeing Care: Tam Corea Homebound: Leaving the home is medically contraindicated at this time without the asist of a device and/or another person due th the listed conditions above and below. Reason homebound: unsteady gait / fall risk, immunosuppression / infection risk and weakness related to hospital stay Certification: Based on the above findings, I certify that this patient is confined to the home and needs intermittent chcf care, physical therapy and/or speech therapy, or continues to need occupational therapy. The patient is under my care, and I have initiated the establishment of the plan of care. The patient will be followed by a physician who will periodically review the plan of care.
--- NOTE | 2021-10-16 10:05 | P.DS_ITS ---
DS: Providers Provider Date of Service: 10/16/21 Date of admission: 10/11/21 11:12 Date of discharge: 10/16/21 Primary care physician: Tam Corea MD DS: Diagnosis Discharge Diagnosis (1) Obesity: Status: Acute (2) Hypoglycemia: Status: Acute (3) COVID: Status: Acute (4) Acute respiratory failure with hypoxia: Status: Acute (5) Essential hypertension: Status: Acute DS: Summary Hospital Course Hospital Course: From admission history and physical by hospitalist Cameron Toribio MD, 10/08/21: 71 year female with diabetes on Januvia, Lantus and Glipizide 10 bid, CKD 3, hypOthyroidism on Levothyroxine, HLD on statin. She has has been complaining of feeling weak and not eating her usual meals size and yet continuen to take her meds, her daughter out of concern for low sugars. The is morning she was very weak, lethargic and confused and was found to have sugar of 22 by EMS, and 48 in ED and now up to 97 and she's feeling better. No fever or chills, no cough, no sob..CXR questionable for PNA, CT shows no convincing evidence of PNA This 71yo F with DM2, morbid obesity, CKD3, HLD, and hypothyroidism was initially admitted for hypoglycemia, but then developed symptomatic Covid-19 with hypoxia. She was treated with supplemental oxygen, 5 days of remdesivir, and 6 days of dexamethasone. Symptoms improved, though she still required 3 liters of home oxygen with activity upon discharge. VNA services and home oxygen were ordered and she was prescribed 4 more days of dexamethasone. Hypoglycemia resolved with discontinuing glipzide. Amlodipine was started for hypertension. Time Spent with Patient Time attestation: Total time spent providing and/or coordinating discharge services: Discharge coordination time: Greater than 30 minutes Quality: Safe Use of Opioids Does Pt have an Active Cancer Diagnosis on the Problem List?: No Quality: Stroke Does the patient have a stroke diagnosis?: No Physical Exam Vital Signs: Vital Signs: Last Vital Signs Temp 96.9 F 10/16/21 08:00 Pulse 70 10/16/21 08:00 Resp 18 10/16/21 08:00 BP 186/86 H 10/16/21 08:00 Pulse Ox 100 10/16/21 08:00 O2 Del Method 10/16/21 08:00 O2 Flow Rate 2 10/16/21 08:00 BMI result Body Mass Index 54.0 Gen: in no acute distress HEENT: sclera anicteric, moist mucus membranes Neck: supple Lungs: clear to auscultation bilaterally Heart: regular rate and rhythm, no murmurs Abd: soft, non-tender, non-distended, morbidly obese Ext: no edema Skin: warm/well-perfused Neuro: alert and oriented x3, no focal findings Psych: appropriate affect DS: Data Data Completed and Pending Completed studies during hospitalization [Text1]: Laboratory Results WBC 10.2 X10*3/uL (4.8-10.8) 10/16/21 06:32 RBC 4.56 X10*6/uL (4.20-5.50) 10/16/21 06:32 Hgb 11.3 g/dl (12.0-16.0) L 10/16/21 06:32 Hct 37.2 % (37.0-47.0) 10/16/21 06:32 MCV 81.6 fL (80.0-98.0) 10/16/21 06:32 MCH 24.8 pg (27.0-33.0) L 10/16/21 06:32 MCHC 30.4 g/dl (31.0-35.0) L 10/16/21 06:32 RDW 14.6 % (11.0-16.0) 10/16/21 06:32 Plt Count 197 X10*3/uL (160-400) 10/16/21 06:32 MPV 12.0 fL (9.4-12.3) 10/16/21 06:32 Immature Gran % (Auto) 0.2 % (0.0-0.4) 10/08/21 12:22 Neut % (Auto) 81.5 % (45-73) H 10/08/21 12:22 Lymph % (Auto) 5.6 % (20-40) L 10/08/21 12:22 [place] % (Auto) 7.3 % (2-11) 10/08/21 12:22 Eos % (Auto) 4.9 % (0-4) H 10/08/21 12:22 Baso % (Auto) 0.5 % (0-2) 10/08/21 12:22 Lymph # (Auto) 0.7 X10*3/uL (1.2-4.9) L 10/08/21 12:22 [place] # (Auto) 0.9 X10*3/uL (0.1-1.2) 10/08/21 12:22 Eos # (Auto) 0.6 X10*3/uL (0.0-0.4) H 10/08/21 12:22 Baso # (Auto) 0.1 X10*3/uL (0.0-0.2) 10/08/21 12:22 Abs Immat Gran (auto) 0.03 X10*3/uL (0.00-0.03) 10/08/21 12:22 Absolute Neuts (auto) 9.8 x10*3/uL (2.0-8.3) H 10/08/21 12:22 Absolute Nucleated RBC 0.000 X10*3/uL (0.0-0.012) 10/16/21 06:32 Nucleated RBC % (auto) 0.0 /100WBC (0.0-0.2) 10/16/21 06:32 PT 11.3 SEC (10.0-13.1) 10/08/21 12:05 INR 1.0 (0.9-1.1) 10/08/21 12:05 APTT 40.8 SEC (24.1-38.0) H 10/08/21 12:05 Sodium 137 mmol/L (135-145) 10/16/21 06:32 Potassium 4.8 mmol/L (3.3-5.1) 10/16/21 06:32 Chloride 102 mmol/L (96-108) 10/16/21 06:32 Carbon Dioxide 26 mmol/L (22-29) 10/16/21 06:32 Anion Gap 14 (12-20) 10/16/21 06:32 BUN 54 mg/dL (9-16) H 10/16/21 06:32 Creatinine 1.37 mg/dL (0.5-1.4) 10/16/21 06:32 Estim Creat Clear Calc 52.3 10/16/21 06:32 Estimated GFR 38 10/16/21 06:32 POC Glucose 132 mg/dL (60-115) H 10/16/21 07:56 Random Glucose 156 mg/dL (60-115) H 10/16/21 06:32 Estimat Average Glucose 117 mg/dL 10/10/21 08:25 Hemoglobin A1c % 5.7 % 10/10/21 08:25 Lactic Acid 0.7 mmol/L (0.5-2.0) 10/08/21 15:04 Calcium 8.4 mg/dL (8.4-10.2) 10/16/21 06:32 Magnesium 2.2 mg/dL (1.6-2.6) 10/08/21 12:22 Total Bilirubin 0.3 mg/dL (0.0-1.0) 10/16/21 06:32 AST 18 U/L (5-31) 10/16/21 06:32 ALT 16 U/L (0-31) 10/16/21 06:32 Alkaline Phosphatase 66 U/L (39-117) 10/16/21 06:32 Troponin I High Sens 67.8 ng/L (<3.5-17.0) H* 10/08/21 15:04 C-Reactive Protein 2.32 mg/dL (< or = 0.50) H 10/16/21 06:32 B-Natriuretic Peptide 142 pg/mL (<100) H 10/08/21 12:05 Total Protein 7.2 g/dL (6.5-8.0) 10/16/21 06:32 Albumin 3.6 g/dL (3.5-5.0) 10/16/21 06:32 Urine Color YELLOW 10/08/21 17:29 Urine Appearance CLEAR 10/08/21 17:29 Urine pH 6.0 (5.0-8.0) 10/08/21 17:29 Ur Specific [place] 1.020 (1.005-1.025) 10/08/21 17:29 Urine Protein NEG MG/DL (NEG-TRACE) 10/08/21 17:29 Urine Glucose (UA) NEG MG/DL (NEG) 10/08/21 17:29 Urine Ketones NEG MG/DL (NEG) 10/08/21 17:29 Urine Blood TRACE (NEG) 10/08/21 17:29 Urine Nitrite NEG (NEG) 10/08/21 17:29 Ur Leukocyte Esterase NEG (NEG) 10/08/21 17:29 Urine RBC 0 /HPF (0) 10/08/21 17:29 Urine WBC 1-4 /HPF (0-4) 10/08/21 17:29 Ur Squamous Epith Cells 2+ /LPF 10/08/21 17:29 Urine Bacteria 1+ /LPF 10/08/21 17:29 COVID-19 (DENY) Positive (Negative) A 10/10/21 11:21 COVID-19 Clin Com See Note 10/10/21 11:21 Impressions Chest X-Ray 10/08/21 12:41 IMPRESSION: Worsening of appearances since prior with increased interstitial markings as described above. Differential includes infectious and noninfectious etiologies. Chest CT 10/08/21 15:21 IMPRESSION: 1. No convincing evidence of pneumonia. One tiny area of groundglass infiltrate. 2. Chronic interstitial disease is present. 3. Mediastinal lymphadenopathy is present Fleischner guidelines were followed. Labs on day of discharge: Laboratory Results - last 24 hr 10/15/21 10/15/21 10/15/21 11:30 15:32 20:37 WBC RBC Hgb Hct MCV MCH MCHC RDW Plt Count MPV Absolute Nucleated RBC Nucleated RBC % (auto) Sodium Potassium Chloride Carbon Dioxide Anion Gap BUN Creatinine Estim Creat Clear Calc Estimated GFR POC Glucose 242 H 287 H 349 H Random Glucose Calcium Total Bilirubin AST ALT Alkaline Phosphatase C-Reactive Protein Total Protein Albumin 10/16/21 10/16/21 10/16/21 06:32 06:32 07:56 WBC 10.2 RBC 4.56 Hgb 11.3 L Hct 37.2 MCV 81.6 MCH 24.8 L MCHC 30.4 L RDW 14.6 Plt Count 197 MPV 12.0 Absolute Nucleated RBC 0.000 Nucleated RBC % (auto) 0.0 Sodium 137 Potassium 4.8 Chloride 102 Carbon Dioxide 26 Anion Gap 14 BUN 54 H Creatinine 1.37 Estim Creat Clear Calc 52.3 Estimated GFR 38 POC Glucose 132 H Random Glucose 156 H Calcium 8.4 Total Bilirubin 0.3 AST 18 ALT 16 Alkaline Phosphatase 66 C-Reactive Protein 2.32 H Total Protein 7.2 Albumin 3.6 Discharge Plan Discharge Anticipated Discharge Date/Time: 10/09/21 08:30 Patient Disposition: Home Health Service Discharge Diagnosis: hypoglycemia, resolved Covid-19 infection with hypoxia hypertension Referrals: Tam Corea MD [Primary Care Provider] - Discharge Medications: New amlodipine 10 mg tablet 10 mg PO DAILY Qty: 30 0RF dexamethasone 6 mg Tablet 6 mg PO DAILY Qty: 4 0RF Continued furosemide 40 mg tablet 40 tab PO BID@0900,1800 levothyroxine 175 mcg tablet 175 mcg PO DAILY@0600 clonazepam 0.5 mg tablet 0.5 mg PO BID amitriptyline 50 mg tablet 25 mg PO DAILY citalopram 20 mg tablet 20 mg PO DAILY simvastatin 20 mg tablet 20 mg PO BEDTIME chlordiazepoxide HCl 10 mg capsule 10 mg PO BEDTIME hydroxychloroquine 200 mg tablet 200 mg PO BID insulin lispro protamin-lispro 100 unit/mL (75-25) insulin pen 7 - 15 ea subcut TIDAC Januvia 100 mg tablet 100 mg PO DAILY insulin glargine [Lantus Solostar U-100 Insulin] 100 unit/mL (3 mL) insulin pen 80 unit subcut BEDTIME Simbrinza 1-0.2 % drops,suspension 1 drp ophthalmic-Right BID Rocklatan 0.02-0.005 % drops 1 drp ophthalmic (eye) BEDTIME multivitamin Tablet 1 tab PO DAILY aspirin 325 mg Tablet 325 mg PO DAILY docusate sodium 100 mg Tablet 100 mg PO DAILY Discontinued penicillin V potassium 250 mg tablet 250 mg PO BID glipizide 10 mg tablet 10 mg PO DAILY Discharge Orders: Discharge Order (Routine); Ordered 10/16/21 Ordered By: Jud Talbert Diet: Advance to usual diet Activity on Discharge: As tolerated Stand Alone Forms: Patient Portal Discharge page Care Plan Goals: avoid hypoglycemia recover from Covid-19 cardiovascular health Health Concerns: hypoglycemia, resolved - STOP GLIPIZIDE - Call your doctor or return to hospital if hypoglycemia recurs Covid-19 infection with hypoxia - oxygen 3L with activity - dexamethasone 6 mg daily x 4 days - isolate per CDC guidelines ?At least 10 and up to 20 days have passed since symptoms first appeared;?and ?At least one day (24 hours) has passed since resolution of fever without the use of fever-reducing medications;?and ?There is improvement in symptoms (eg, cough, shortness of breath). hypertension - low-sodium diet - avoid sugar and salt - start amlodipine 10 mg daily see your primary care doctor in 1 week Plan of Treatment: see above Assessment: as above Patient Instructions: Hypoglycemia in a Person with Diabetes (DC), COVID-19 (Coronavirus Disease 2019) (DC)
[2021-10-16 12:05] VITALS: BP 148/77; PULSE 81; RESP 17; TEMP 36; O2SAT 100
[2021-10-16 12:38] LABS: Glucose, Whole Blood 210 mg/dL (60-115)
[2021-10-16] MEDS: Insulin Lispro 100 UNIT/ML 3 ML VIAL SUBCUT (12:43)
--- NOTE | 2021-10-16 13:23 | MHC.CM.PN ---
Addendum entered by Noreen Kay 10/16/21 14:05: Transportation is running late. 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 Original Note: IMM 10/16/21 Female 71 Covid +Is discharged to home today with resumption of [employer], and new [facility]. Transportation has been booked for 3pm.
== END 2021-10-16 18:14 | disposition home health service (06) | DRG 177 ==
LOC: HO.ED 12:29 → HO.EDOVER 17:36 → HO.S3 22:18 → HO.IMC 10-10 12:53
PROVIDERS: Physician Assistant; Admitting Provider Internal Medicine; Emergency Provider Emergency Medicine; PCP Internal Medicine; Visit Provider Family Medicine
DX: U07.1 COVID-19 (principal); J96.01 Acute respiratory failure with hypoxia; I13.0 Hypertensive heart and chronic kidney disease with heart failure and stage 1 through stage 4 chronic kidney disease, or unspecified chronic kidney disease; N39.0 Urinary tract infection, site not specified; E11.649 Type 2 diabetes mellitus with hypoglycemia without coma; E66.01 Morbid (severe) obesity due to excess calories; Z98.2 Presence of cerebrospinal fluid drainage device; E11.22 Type 2 diabetes mellitus with diabetic chronic kidney disease; Z91.14 Patient's other noncompliance with medication regimen; Z88.5 Allergy status to narcotic agent; Z79.82 Long term (current) use of aspirin; Z79.4 Long term (current) use of insulin; Z79.890 Hormone replacement therapy; Z79.899 Other long term (current) drug therapy
CPT/HCPCS: 36415; 71045; 71250; 80048; 80053; 81001; 82947; 83036; 83605; 83735; 83880; 84484; 85025; 85027; 85610; 85730; 86140; 87040; 87635; 93005; 97162; 99285; J0248; J0456; J0696; J8540

== ENCOUNTER 2021-11-19 16:59 | Inpatient (IN) | payer OTHER, SELFPAY ==
[2021-11-19] VITALS (11 sets, daily range): BP systolic 116–151; BP diastolic 39–72; PULSE 62–103; RESP 18–40; TEMP 35–35.8; O2SAT 79–100; BMI 55.8
--- NOTE | ~2021-11-19 | XR_ITS ---
EXAMINATION: XR CHEST CLINICAL INFORMATION: Status post intubated COMPARISON: Chest radiograph 10/08/2021 TECHNIQUE: Frontal view of the chest was obtained. FINDINGS: Endotracheal tube tip is 3.5 cm from the colette. Enteric tube tip is below the diaphragm out of the field of view of the current film. Low lung volumes. Diffuse bilateral patchy airspace opacities. Suspect bilateral layering pleural effusions. No pneumothorax. Cardiomediastinal silhouette is enlarged. Atherosclerotic calcification in the aortic arch. XR/XR chest 1V IMPRESSION: Low lung volumes with diffuse bilateral patchy infiltrates. Bilateral layering effusions. Endotracheal tube tip is 3.5 cm from the colette.
--- NOTE | ~2021-11-19 | XR_ITS ---
EXAMINATION: XR CHEST CLINICAL INFORMATION: Status post right thoracentesis COMPARISON: Chest CT November 23, 2021 and chest x-ray November 20, 2021 TECHNIQUE: Frontal view of the chest was obtained. FINDINGS: Endotracheal tube terminates approximately 4.3 cm above the level the colette. Enteric tube terminates well below the level the diaphragm. Left-sided jugular catheter is stable with tip terminating within the brachiocephalic vein. Similar cardiac enlargement. Small pleural effusions bilaterally appear similar. No pneumothorax. XR/XR chest 1V IMPRESSION: -Stable support apparatus. -No pneumothorax status post thoracentesis.
--- NOTE | ~2021-11-19 | XR_ITS ---
EXAMINATION: XR CHEST CLINICAL INFORMATION: Hypoxia. COMPARISON: Chest radiograph 11/27/2021. TECHNIQUE: Frontal view of the chest was obtained. FINDINGS: The endotracheal tube terminates at 3.5 cm above the colette. An enteric tube terminates in the stomach. EKG wires overlie the chest. A left IJ CVC projects over the innominate vein, similar to prior. Stable cardiomegaly. Unchanged central vasculature engorgement, bibasilar airspace opacities and small bilateral pleural effusions. No pneumothorax. No acute osseous abnormalities. XR/XR chest 1V IMPRESSION: No significant change when compared to 11/27/2021.
--- NOTE | ~2021-11-19 | CT_ITS ---
EXAMINATION: CT ANGIOGRAM OF THE CHEST WITH AND WITHOUT CONTRAST (CT PULMONARY ANGIOGRAM FOR PE) CT ABDOMEN AND PELVIS WITH CONTRAST CLINICAL INFORMATION: Respiratory failure. Left abdominal pain. Elevated D dimer. Hypoxic. COMPARISON: 10/08/2021 TECHNIQUE: Prior to contrast administration, noncontrast localization images were obtained. Subsequently, multidetector volumetric imaging was performed from the thoracic inlet to the pubic symphysis following the administration of 100 mL Omnipaque 350 intravenous contrast. This was followed by multidetector acquisition of the abdomen and pelvis. No contrast reaction reported Sagittal, coronal, and MIP oblique sagittal reformatted images were obtained on the CT workstation, uploaded to PACS, and reviewed. This CT examination was performed using dose optimization techniques as appropriate, variously including the following: *Automated exposure control *Adjustment of mA and/or kV according to patient size (this includes techniques or standardized protocols for targeted exams where dose is matched to indication/reason for exam; i.e. extremities or head) *Use of iterative reconstruction technique Total exam dose-length product 2165 mGy-cm FINDINGS: QUALITY OF STUDY/CONTRAST BOLUS: Satisfactory. PULMONARY ARTERIES: No central or segmental pulmonary emboli. THORACIC AORTA: No aneurysm or dissection. LUNG: There is an endotracheal tube in place which terminates 1.7 cm above the colette. There is occlusion of left lower lobe bronchi with near complete consolidation of the left lower lobe. Significant right lower lobe and right middle lobe consolidation as well. Consolidation in the lingula. Moderate right and small left pleural effusions are noted. No pneumothorax. MEDIASTINUM: Enlarged heart size. No pericardial effusion. Mediastinal lymphadenopathy again noted. For instance there is a right paratracheal node measuring 1.9 cm on series 7 image 22. Enlarged lymph nodes seen throughout the AP window.. No evidence of septal bowing or right heart strain. CHEST WALL/AXILLA: No axillary or internal mammary lymphadenopathy. LIVER, GALLBLADDER, AND BILIARY TREE: The liver is normal in size, shape, and attenuation. No focal hepatic lesion or biliary ductal dilatation is present. The gallbladder is not seen and is likely absent. PANCREAS: Mild atrophy with no focal abnormality. SPLEEN: Unremarkable. ADRENAL GLANDS: Unremarkable. KIDNEYS AND URETERS: The kidneys are normal in size, shape, and attenuation. No hydronephrosis, hydroureter, or calculi seen. No perinephric stranding. BLADDER: Unremarkable. GASTROINTESTINAL TRACT: There is a Dobbhoff tube terminating in the stomach. Normal caliber small bowel. No obstruction. No colonic wall thickening or acute inflammatory change. Minimal diverticulosis without diverticulitis. No free air or free fluid. [employer] shunt tubing terminates in the lower quadrant. ABDOMINAL WALL: No significant hernia is appreciated. Mild anasarca. Diffuse laxity of the abdominal wall. LYMPH NODES: Prominent retroperitoneal lymph nodes are noted. For instance there is a left para-aortic node measuring 1.5 cm short axis on series 14 image 33. There is a prominent right inguinal lymph node measuring 4.5 cm in long axis. VASCULAR: Normal caliber aorta with extensive is chronic calcification. PELVIC VISCERA: No pelvic mass. OSSEOUS STRUCTURES: No acute or suspicious osseous abnormality. Degenerative changes throughout the spine. DISH. CT/CT abdomen pelvis w con IMPRESSION: 1. No pulmonary embolism. 2. Small left and moderate right pleural effusions. Multifocal areas of consolidation, particularly in the left lower lobe. This could be near complete atelectasis of this lobe. Pneumonia must be considered as well. 3. Persistent mediastinal lymphadenopathy. There is retroperitoneal lymphadenopathy. Enlarged right inguinal lymph node. These findings are nonspecific. Metastatic disease is possible. 4. Endotracheal tube terminates approximately 1.7 cm above the colette. Consider slight retraction. VTE: negative
--- NOTE | ~2021-11-19 | US_ITS ---
EXAMINATION: US GUIDED THORACENTESIS CLINICAL INFORMATION: Pleural effusion. COMPARISON: Previous chest x-ray 11/20/[address] 11/23/2021. TECHNIQUE: Procedure and risks and benefits including bleeding, infection and pneumothorax were discussed with the patient's healthcare proxy, her daughter, by telephone and informed consent was obtained. The patient was positioned in the supine/slight left decubitus position. The right chest was prepped and draped in the usual sterile fashion. The skin and soft tissues were anesthetized with 1% lidocaine plain. Using ultrasound guidance and a 4-Maori rapid centesis catheter, access to the right pleural effusion was obtained. 600 mL of clear camila-colored fluid was removed. Diagnostic specimen was sent. The exam was performed portably in the ICU. FINDINGS: There is a [id number] right pleural effusion. US/US thoracentesis IMPRESSION: Ultrasound-guided right thoracentesis.
--- NOTE | ~2021-11-19 | XR_ITS ---
EXAMINATION: XR CHEST CLINICAL INFORMATION: Hypoxia COMPARISON: Previous chest x-ray most recent 11/30/2021 TECHNIQUE: Frontal view of the chest was obtained. FINDINGS: The cardiac silhouette is enlarged but stable. The thoracic aorta is calcified. There is volume loss to the left hemithorax with shift of the central mediastinal structures to the left. This appears unchanged. There is bilateral airspace disease and pleural effusions. This is similar to recent exams. There is no pneumothorax. XR/XR chest 1V IMPRESSION: Stable chest x-ray exam with enlargement of the cardiac silhouette, left lung volume loss, bilateral airspace disease and pleural effusions.
--- NOTE | ~2021-11-19 | US_ITS ---
EXAMINATION: US GUIDED LYMPH NODE BIOPSY CLINICAL INFORMATION: Diffuse lymphadenopathy. COMPARISON: Previous CT of the chest and abdomen and pelvis from earlier this month. TECHNIQUE: Procedure and risks and benefits including bleeding and infection were discussed with the patient's healthcare proxy, her daughter, by telephone and informed consent was obtained. The right groin was prepped and draped in the usual sterile fashion. The skin and soft tissues were anesthetized with 1% lidocaine plain. Using ultrasound guidance and a coaxial system, access to a right inguinal lymph node was obtained. Four 20-gauge core biopsies were obtained for pathology and flow cytometry studies. FINDINGS: There is a 5.6 x 0.9 x 2.1 cm right inguinal lymph node that was targeted for biopsy. This demonstrates normal ultrasound morphology and normal hilar flow. US/US biopsy lymph node IMPRESSION: Ultrasound-guided right inguinal lymph node biopsy.
--- NOTE | ~2021-11-19 | XR_ITS ---
EXAMINATION: XR CHEST CLINICAL INFORMATION: Post left thoracentesis COMPARISON: Previous chest x-ray most recent 11/25/2021 TECHNIQUE: Frontal view of the chest was obtained. FINDINGS: There is an endotracheal tube with tip 6 cm above the colette. There is a nasogastric tube that projects over the stomach. The tip is not seen. There is a left jugular line with tip projecting over the innominate vein. May be volume loss to the left hemithorax versus a rotation to the left. The cardiac silhouette appears enlarged but stable. There is fullness of the ozzie and mediastinum similar to previous exams. There is perihilar and lower lobe airspace disease similar to previous exams. There is a small right pleural effusion. No left pleural effusion is appreciated by chest x-ray. There is no pneumothorax post left thoracentesis. XR/XR chest 1V IMPRESSION: No pneumothorax post left thoracentesis.
--- NOTE | ~2021-11-19 | CT_ITS ---
EXAMINATION: CT CHEST WITHOUT CONTRAST CLINICAL INFORMATION: Follow-up pneumonia COMPARISON: Chest CT 11/19/2021 TECHNIQUE: Multidetector volumetric CT imaging of the chest was done. Axial MIP volume rendering provided. Sagittal and coronal reformatted images were obtained. This CT examination was performed using dose optimization techniques as appropriate, variously including the following: *Automated exposure control *Adjustment of mA and/or kV according to patient size (this includes techniques or standardized protocols for targeted exams where dose is matched to indication/reason for exam; i.e. extremities or head) *Use of iterative reconstruction technique DLP: 441 mGy-cm FINDINGS: LUNGS: Complete opacification of the left lower lobe and lingula. Partial opacification of the right middle and lower lobes and posterior upper lobes. No suspicious appearing pulmonary nodule. Endotracheal tube tip terminates 1.8 cm above the colette. MEDIASTINUM: Prominent heart size. Coarse/dense mitral annular calcifications. Three-vessel coronary calcifications. No pericardial effusion. Normal caliber thoracic aorta with moderate coarse vascular calcifications. Nondilated central pulmonary trunk. Multiple prominent and/or mildly enlarged mediastinal lymph nodes measuring up to 1.2 cm in short axis. A conglomerate kelly mass measuring 3 x 3.1 cm in the lower right paratracheal region is redemonstrated as well series 3-21. PLEURA: Moderate sized right larger than left pleural effusions AXILLA: Prominent axillary lymph nodes, largest measuring up to 1.1 cm in short axis in the left axilla. UPPER ABDOMEN: Enteric tube extends in the visualized stomach. Enlarged periceliac/peripancreatic lymph node measuring 1.5 cm in short axis and portacaval lymph node measuring 1.3 cm. Additional retrocrural and left periaortic lymphadenopathy. Visualized upper abdominal viscera are grossly unremarkable. Small volume perihepatic and perisplenic ascites. OSSEOUS STRUCTURES: No acute fracture or suspicious osseous lesion. Mild multilevel degenerative disc disease and findings of DISH. CT/CT chest wo con IMPRESSION: 1. Moderate-sized bilateral pleural effusions right larger than left, similar to prior. 2. Extensive bilateral airspace opacities presumably atelectasis though cannot exclude superimposed pneumonia. The entire left lower lobe and lingula are completely opacified. 3. Mediastinal mild axillary and upper abdominal lymphadenopathy, which could be due to underlying lymphoproliferative process/lymphoma or metastatic disease. Correlate clinically.
--- NOTE | ~2021-11-19 | CT_ITS ---
EXAMINATION: CT ANGIOGRAM OF THE CHEST WITH AND WITHOUT CONTRAST (CT PULMONARY ANGIOGRAM FOR PE) CT ABDOMEN AND PELVIS WITH CONTRAST CLINICAL INFORMATION: Respiratory failure. Left abdominal pain. Elevated D dimer. Hypoxic. COMPARISON: 10/08/2021 TECHNIQUE: Prior to contrast administration, noncontrast localization images were obtained. Subsequently, multidetector volumetric imaging was performed from the thoracic inlet to the pubic symphysis following the administration of 100 mL Omnipaque 350 intravenous contrast. This was followed by multidetector acquisition of the abdomen and pelvis. No contrast reaction reported Sagittal, coronal, and MIP oblique sagittal reformatted images were obtained on the CT workstation, uploaded to PACS, and reviewed. This CT examination was performed using dose optimization techniques as appropriate, variously including the following: *Automated exposure control *Adjustment of mA and/or kV according to patient size (this includes techniques or standardized protocols for targeted exams where dose is matched to indication/reason for exam; i.e. extremities or head) *Use of iterative reconstruction technique Total exam dose-length product 2165 mGy-cm FINDINGS: QUALITY OF STUDY/CONTRAST BOLUS: Satisfactory. PULMONARY ARTERIES: No central or segmental pulmonary emboli. THORACIC AORTA: No aneurysm or dissection. LUNG: There is an endotracheal tube in place which terminates 1.7 cm above the colette. There is occlusion of left lower lobe bronchi with near complete consolidation of the left lower lobe. Significant right lower lobe and right middle lobe consolidation as well. Consolidation in the lingula. Moderate right and small left pleural effusions are noted. No pneumothorax. MEDIASTINUM: Enlarged heart size. No pericardial effusion. Mediastinal lymphadenopathy again noted. For instance there is a right paratracheal node measuring 1.9 cm on series 7 image 22. Enlarged lymph nodes seen throughout the AP window.. No evidence of septal bowing or right heart strain. CHEST WALL/AXILLA: No axillary or internal mammary lymphadenopathy. LIVER, GALLBLADDER, AND BILIARY TREE: The liver is normal in size, shape, and attenuation. No focal hepatic lesion or biliary ductal dilatation is present. The gallbladder is not seen and is likely absent. PANCREAS: Mild atrophy with no focal abnormality. SPLEEN: Unremarkable. ADRENAL GLANDS: Unremarkable. KIDNEYS AND URETERS: The kidneys are normal in size, shape, and attenuation. No hydronephrosis, hydroureter, or calculi seen. No perinephric stranding. BLADDER: Unremarkable. GASTROINTESTINAL TRACT: There is a Dobbhoff tube terminating in the stomach. Normal caliber small bowel. No obstruction. No colonic wall thickening or acute inflammatory change. Minimal diverticulosis without diverticulitis. No free air or free fluid. [employer] shunt tubing terminates in the lower quadrant. ABDOMINAL WALL: No significant hernia is appreciated. Mild anasarca. Diffuse laxity of the abdominal wall. LYMPH NODES: Prominent retroperitoneal lymph nodes are noted. For instance there is a left para-aortic node measuring 1.5 cm short axis on series 14 image 33. There is a prominent right inguinal lymph node measuring 4.5 cm in long axis. VASCULAR: Normal caliber aorta with extensive is chronic calcification. PELVIC VISCERA: No pelvic mass. OSSEOUS STRUCTURES: No acute or suspicious osseous abnormality. Degenerative changes throughout the spine. DISH. CT/CT angio chest PE protocol IMPRESSION: 1. No pulmonary embolism. 2. Small left and moderate right pleural effusions. Multifocal areas of consolidation, particularly in the left lower lobe. This could be near complete atelectasis of this lobe. Pneumonia must be considered as well. 3. Persistent mediastinal lymphadenopathy. There is retroperitoneal lymphadenopathy. Enlarged right inguinal lymph node. These findings are nonspecific. Metastatic disease is possible. 4. Endotracheal tube terminates approximately 1.7 cm above the colette. Consider slight retraction. VTE: negative
--- NOTE | ~2021-11-19 | XR_ITS ---
EXAMINATION: XR CHEST CLINICAL INFORMATION: Check central line placement. COMPARISON: 11/19/2021 chest radiograph. TECHNIQUE: Frontal view of the chest was obtained. FINDINGS: Support devices: Endotracheal tube with tip terminating approximately 2.5 cm proximal to colette. Left-sided central venous catheter with tip terminating at the brachiocephalic/caval junction. Enteric tube is seen with tip located left hemidiaphragm but not included on the study. There are increased pulmonary vascular markings. Small bilateral pleural effusions. No pneumothorax. The heart is mildly enlarged. The mediastinal structures are unremarkable. XR/XR chest 1V IMPRESSION: 1. Left internal jugular catheter tip terminating at the right brachiocephalic/caval junction. 2. CHF and small bilateral pleural effusions without significant change.
--- NOTE | ~2021-11-19 | US_ITS ---
PROCEDURE: ULTRASOUND-GUIDED THORACENTESIS CLINICAL INFORMATION: Sepsis. COMPARISON: Previous chest x-ray from 11/25/2021 and chest CTA 11/19/2021. TECHNIQUE: Procedure and risks and benefits including bleeding, infection and pneumothorax were discussed with the patient's healthcare proxy by telephone and the patient's niece in person and informed consent was obtained. The patient was positioned in the right decubitus position. The left chest was prepped and draped in the usual sterile fashion. The skin and soft tissues were anesthetized with 1% lidocaine plain. Using ultrasound guidance 4 Thai catheter, access to the left pleural effusion was obtained. 450 mL of clear camila-colored fluid was removed. Diagnostic specimen was sent as per Dr. Otto. Exam was performed portably in the ICU. FINDINGS: There is a moderate left pleural effusion. US/US drain thoracentesis IMPRESSION: Ultrasound-guided left thoracentesis.
[2021-11-19] MEDS: Etomidate 20 MG/10 ML VIAL IVPUSH (17:10)
[2021-11-19] MEDS: 0.9 % Sodium Chloride 1,000 ML 999 ML IVCONT (17:10)
[2021-11-19] MEDS: Rocuronium Bromide 50 MG/5 ML VIAL 80 MG IVPUSH (17:11)
[2021-11-19] MEDS: propofoL 1,000 MG/100 ML VIAL 27.4 MG IVCONT (17:18)
--- NOTE | 2021-11-19 17:20 | ECG_ITS ---
Test Reason : DIFFICULTY BREATHING Blood Pressure : / mmHG Vent. Rate : 080 BPM Atrial Rate : 080 BPM P-R Int : 200 ms QRS Dur : 112 ms QT Int : 430 ms P-R-T Axes : 040 090 003 degrees QTc Int : 495 ms Normal sinus rhythm with sinus arrhythmia Rightward axis Cannot rule out Anterior infarct (cited on or before 08-OCT-2021) Abnormal ECG When compared with ECG of 08-OCT-2021 11:45, MD interval has decreased Referred By: Adeline Espino Electronically Signed By:AMANDA RAMIREZ
--- NOTE | 2021-11-19 17:22 | ED.SOB ---
HPI - SOB/Dyspnea General Chief Complaint: Dyspnea Stated Complaint: DIFFICULTY BREATHING Time Seen by Provider: 11/19/21 17:19 Source: EMS Mode of arrival: EMS Limitations: other (Severe respiratory distress) History of Present Illness HPI Narrative: Patient comes to the emergency room via EMS from home. Patient was diagnosed with COVID-19 approximately 1 month ago, patient has no history of COPD, asthma or CHF. Patient told EMS that she usually uses oxygen at home, but she was still feeling very short of breath. When EMS arrived, patient's oxygen saturation was 68 on room air, low 70s on 2 L. Patient was put on a CPAP. Maximum oxygen saturation was 79%. On arrival to the emergency room. Patient was barely conscious, very tachypneic. Patient was intubated immediately. Related Data Home Medications Medication Instructions Recorded Confirmed amitriptyline 50 mg tablet 25 mg PO DAILY 10/08/21 10/08/21 aspirin 325 mg tablet 325 mg PO DAILY 10/08/21 10/08/21 brinzolamide 1 %-brimonidine 0.2 % 1 drp ophthalmic-Right BID 10/08/21 10/08/21 eye drops,suspension (Simbrinza) chlordiazepoxide HCl 10 mg capsule 10 mg PO BEDTIME 10/08/21 10/08/21 citalopram 20 mg tablet 20 mg PO DAILY 10/08/21 10/08/21 clonazepam 0.5 mg tablet 0.5 mg PO BID 10/08/21 10/08/21 docusate sodium 100 mg tablet 100 mg PO DAILY 10/08/21 10/08/21 furosemide 40 mg tablet 40 tab PO BID@0900,1800 10/08/21 10/08/21 hydroxychloroquine 200 mg tablet 200 mg PO BID 10/08/21 10/08/21 insulin glargine 100 unit/mL (3 80 unit subcut BEDTIME 10/08/21 10/08/21 mL) subcutaneous pen (Lantus Solostar U-100 Insulin) insulin lispro protamine-lispro 7 - 15 ea subcut TIDAC 10/08/21 10/08/21 100 unit/mL (75-25) subcutaneous pen levothyroxine 175 mcg tablet 175 mcg PO DAILY@0600 10/08/21 10/08/21 multivitamin 1 tab PO DAILY 10/08/21 10/08/21 netarsudil 0.02 %-latanoprost 1 drp ophthalmic (eye) BEDTIME 10/08/21 10/08/21 0.005 % eye drops (Rocklatan) simvastatin 20 mg tablet 20 mg PO BEDTIME 10/08/21 10/08/21 sitagliptin 100 mg tablet (Januvia) 100 mg PO DAILY 10/08/21 10/08/21 Previous Rx's Medication Instructions Recorded amlodipine 10 mg tablet 10 mg PO DAILY #30 tabs 10/16/21 dexamethasone 6 mg tablet 6 mg PO DAILY #4 tabs 10/16/21 Allergies Allergy/AdvReac Type Severity Reaction Status Date / Time oxycodone [From Percocet] Allergy Intermediate Rash Verified 11/19/21 17:16 Review of Systems Review of Systems: Yes unobtainable due to endotracheal tube and Unobtainable due to mental condition [facility] Past Medical History Medical History (Updated 11/19/21 @ 22:06 by Adeline Espino MD) CKD (chronic kidney disease) COVID Diabetes mellitus with insulin therapy HLD (hyperlipidemia) HTN (hypertension) Hypothyroidism Lower extremity edema Migraine Obesity Pseudotumor cerebri PVD (peripheral vascular disease) Surgical History H/O cataract extraction H/O hysterectomy for benign disease Hx of cholecystectomy S/P appendectomy Family History Family History Mother Heart attack, Onset Age: 92 Father Heart attack, Onset Age: 66 Other Diabetes Social History Social History Alcohol intake: never Patient Tobacco Use Status: Never used Tobacco Advance Directives: Yes Advance Directives on File: Yes Advance Directives Date on File: 09/26/20 service: No Current occupational status: disabled Physical Exam Vital Signs: Vital Signs: Last Vital Signs Pulse 62 11/19/21 20:51 Resp 20 11/19/21 20:51 BP 129/39 L 11/19/21 20:51 Pulse Ox 100 11/19/21 20:51 O2 Del Method 11/19/21 17:03 FiO2 40 11/19/21 20:10 BMI result Body Mass Index 55.8 Const: Other: Appearance: Lethargic, barely arousable Eyes: Pupils equal, round and reactive to light. ENT: Pharynx normal. Neck: Normal inspection. Neck supple. No lymph nodes noted. No crepitus CVS: Normal heart rate and rhythm. Pulses normal. Normal S1 and S2 Respiratory: In severe respiratory distress, mild wheezing, barely audible breath sounds Abdomen: Soft and nontender. No rigidity. No distention. Skin: Skin warm and dry. Normal skin color. Normal skin turgor. Extremities: No lower extremity edema. No Lacerations. No Rash Neuro: Very lethargic, unable to participate in cranial nerve assessment Psych: Lethargic Course Course Course Narrative: Patient was intubated on arrival. Oxygen saturation improved to 100% Chest x-ray shows Bilateral patchy infiltrates, patient is being given Zosyn, IV fluids based on ideal weight of 55 kg, patient is morbidly obese. Patient's nieces are in the room. They report that prior to calling ambulance, patient was complaining about left-sided abdominal pain. 22:34, CT scan of the abdomen and CTA of the chest are still pending. I discussed the patient with Dr. Nguyen, patient admitted to the intensive care unit. MDM - SOB/Dyspnea Lab Data Result diagrams: 11/19/21 18:38 11/19/21 18:42 Labs: Lab Results 11/19/21 11/19/21 11/19/21 Range/Units 18:37 18:37 18:37 WBC (4.8-10.8) X10*3/uL RBC (4.20-5.50) X10*6/uL Hgb (12.0-16.0) g/dl Hct (37.0-47.0) % MCV (80.0-98.0) fL MCH (27.0-33.0) pg MCHC (31.0-35.0) g/dl RDW (11.0-16.0) % Plt Count (160-400) X10*3/uL MPV (9.4-12.3) fL Immature Gran % (Auto) (0.0-0.4) % Neut % (Auto) (45-73) % Lymph % (Auto) (20-40) % Rogers % (Auto) (2-11) % Eos % (Auto) (0-4) % Baso % (Auto) (0-2) % Lymph # (Auto) (1.2-4.9) X10*3/uL Rogers # (Auto) (0.1-1.2) X10*3/uL Eos # (Auto) (0.0-0.4) X10*3/uL Baso # (Auto) (0.0-0.2) X10*3/uL Abs Immat Gran (auto) (0.00-0.03) X10*3/uL Absolute Neuts (auto) (2.0-8.3) x10*3/uL Absolute Nucleated RBC (0.0-0.012) X10*3/uL Nucleated RBC % (auto) (0.0-0.2) /100WBC PT 12.4 (10.0-13.1) SEC INR 1.1 (0.9-1.1) D-Dimer High Sensitivty 578 NG/ML VBG pH (7.32-7.43) VBG pCO2 mmHg VBG pO2 mmHg VBG HCO3 (22-26) mmol/L VBG O2 Saturation % VBG Base Excess mmol/L Sodium Potassium Chloride Carbon Dioxide Anion Gap BUN Creatinine Estim Creat Clear Calc Estimated GFR Random Glucose Lactic Acid (0.5-2.0) mmol/L Calcium Magnesium Total Bilirubin Direct Bilirubin AST ALT Alkaline Phosphatase Troponin I High Sens 21.9 H D (<3.5-17.0) ng/L B-Natriuretic Peptide (<100) pg/mL Total Protein Albumin TSH (0.32-4.0) uIU/mL COVID-19 (DENY) (Negative) COVID-19 Clin Com 11/19/21 11/19/21 11/19/21 Range/Units 18:37 18:38 18:38 WBC 16.7 H (4.8-10.8) X10*3/uL RBC 4.02 L (4.20-5.50) X10*6/uL Hgb 10.1 L (12.0-16.0) g/dl Hct 33.3 L (37.0-47.0) % MCV 82.8 (80.0-98.0) fL MCH 25.1 L (27.0-33.0) pg MCHC 30.3 L (31.0-35.0) g/dl RDW 15.4 (11.0-16.0) % Plt Count 211 (160-400) X10*3/uL MPV 10.9 (9.4-12.3) fL Immature Gran % (Auto) 0.7 H (0.0-0.4) % Neut % (Auto) 88.5 H (45-73) % Lymph % (Auto) 3.5 L (20-40) % Rogers % (Auto) 6.0 (2-11) % Eos % (Auto) 0.6 (0-4) % Baso % (Auto) 0.7 (0-2) % Lymph # (Auto) 0.6 L (1.2-4.9) X10*3/uL [place] # (Auto) 1.0 (0.1-1.2) X10*3/uL Eos # (Auto) 0.1 (0.0-0.4) X10*3/uL Baso # (Auto) 0.1 (0.0-0.2) X10*3/uL Abs Immat Gran (auto) 0.11 H (0.00-0.03) X10*3/uL Absolute Neuts (auto) 14.8 H (2.0-8.3) x10*3/uL Absolute Nucleated RBC 0.000 (0.0-0.012) X10*3/uL Nucleated RBC % (auto) 0.0 (0.0-0.2) /100WBC PT (10.0-13.1) SEC INR (0.9-1.1) D-Dimer High Sensitivty NG/ML VBG pH 7.50 H (7.32-7.43) VBG pCO2 33 mmHg VBG pO2 116 mmHg VBG HCO3 26 (22-26) mmol/L VBG O2 Saturation 99.0 % VBG Base Excess 3.8 mmol/L Sodium Potassium Chloride Carbon Dioxide Anion Gap BUN Creatinine Estim Creat Clear Calc Estimated GFR Random Glucose Lactic Acid 1.8 (0.5-2.0) mmol/L Calcium Magnesium Total Bilirubin Direct Bilirubin AST ALT Alkaline Phosphatase Troponin I High Sens (<3.5-17.0) ng/L B-Natriuretic Peptide (<100) pg/mL Total Protein Albumin TSH (0.32-4.0) uIU/mL COVID-19 (DENY) (Negative) COVID-19 Clin Com 11/19/21 11/19/21 11/19/21 Range/Units 18:41 18:42 18:42 WBC (4.8-10.8) X10*3/uL RBC (4.20-5.50) X10*6/uL Hgb (12.0-16.0) g/dl Hct (37.0-47.0) % MCV (80.0-98.0) fL MCH (27.0-33.0) pg MCHC (31.0-35.0) g/dl RDW (11.0-16.0) % Plt Count (160-400) X10*3/uL MPV (9.4-12.3) fL Immature Gran % (Auto) (0.0-0.4) % Neut % (Auto) (45-73) % Lymph % (Auto) (20-40) % [place] % (Auto) (2-11) % Eos % (Auto) (0-4) % Baso % (Auto) (0-2) % Lymph # (Auto) (1.2-4.9) X10*3/uL [place] # (Auto) (0.1-1.2) X10*3/uL Eos # (Auto) (0.0-0.4) X10*3/uL Baso # (Auto) (0.0-0.2) X10*3/uL Abs Immat Gran (auto) (0.00-0.03) X10*3/uL Absolute Neuts (auto) (2.0-8.3) x10*3/uL Absolute Nucleated RBC (0.0-0.012) X10*3/uL Nucleated RBC % (auto) (0.0-0.2) /100WBC PT (10.0-13.1) SEC INR (0.9-1.1) D-Dimer High Sensitivty NG/ML VBG pH (7.32-7.43) VBG pCO2 mmHg VBG pO2 mmHg VBG HCO3 (22-26) mmol/L VBG O2 Saturation % VBG Base Excess mmol/L Sodium Cancelled 141 Potassium Cancelled 4.8 Chloride Cancelled 103 Carbon Dioxide Cancelled 23 Anion Gap Cancelled 20 BUN Cancelled 20 H D Creatinine Cancelled 1.26 Estim Creat Clear Calc Cancelled 62.3 Estimated GFR Cancelled 42 Random Glucose Cancelled 199 H Lactic Acid (0.5-2.0) mmol/L Calcium Cancelled 8.5 Magnesium Cancelled 2.2 Total Bilirubin Cancelled 0.5 Direct Bilirubin Cancelled 0.3 AST Cancelled 16 ALT Cancelled 12 Alkaline Phosphatase Cancelled 80 D Troponin I High Sens (<3.5-17.0) ng/L B-Natriuretic Peptide 304 H (<100) pg/mL Total Protein Cancelled 6.2 L Albumin Cancelled 3.2 L TSH 1.84 (0.32-4.0) uIU/mL COVID-19 (DENY) (Negative) COVID-19 Clin Com 11/19/21 Range/Units 20:31 WBC (4.8-10.8) X10*3/uL RBC (4.20-5.50) X10*6/uL Hgb (12.0-16.0) g/dl Hct (37.0-47.0) % MCV (80.0-98.0) fL MCH (27.0-33.0) pg MCHC (31.0-35.0) g/dl RDW (11.0-16.0) % Plt Count (160-400) X10*3/uL MPV (9.4-12.3) fL Immature Gran % (Auto) (0.0-0.4) % Neut % (Auto) (45-73) % Lymph % (Auto) (20-40) % [place] % (Auto) (2-11) % Eos % (Auto) (0-4) % Baso % (Auto) (0-2) % Lymph # (Auto) (1.2-4.9) X10*3/uL [place] # (Auto) (0.1-1.2) X10*3/uL Eos # (Auto) (0.0-0.4) X10*3/uL Baso # (Auto) (0.0-0.2) X10*3/uL Abs Immat Gran (auto) (0.00-0.03) X10*3/uL Absolute Neuts (auto) (2.0-8.3) x10*3/uL Absolute Nucleated RBC (0.0-0.012) X10*3/uL Nucleated RBC % (auto) (0.0-0.2) /100WBC PT (10.0-13.1) SEC INR (0.9-1.1) D-Dimer High Sensitivty NG/ML VBG pH (7.32-7.43) VBG pCO2 mmHg VBG pO2 mmHg VBG HCO3 (22-26) mmol/L VBG O2 Saturation % VBG Base Excess mmol/L Sodium Potassium Chloride Carbon Dioxide Anion Gap BUN Creatinine Estim Creat Clear Calc Estimated GFR Random Glucose Lactic Acid (0.5-2.0) mmol/L Calcium Magnesium Total Bilirubin Direct Bilirubin AST ALT Alkaline Phosphatase Troponin I High Sens (<3.5-17.0) ng/L B-Natriuretic Peptide (<100) pg/mL Total Protein Albumin TSH (0.32-4.0) uIU/mL COVID-19 (DENY) Negative (Negative) COVID-19 Clin Com See Note Imaging Data Chest x-ray: Radiologist's impression: INDINGS: Endotracheal tube tip is 3.5 cm from the colette. Enteric tube tip is below the diaphragm out of the field of view of the current film. Low lung volumes. Diffuse bilateral patchy airspace opacities. Suspect bilateral layering pleural effusions. No pneumothorax. Cardiomediastinal silhouette is enlarged. Atherosclerotic calcification in the aortic arch. XR/XR chest 1V IMPRESSION: Low lung volumes with diffuse bilateral patchy infiltrates. Bilateral layering effusions. ? Endotracheal tube tip is 3.5 cm from the colette. ? Procedures Intubation Time out performed: Yes sedative: Etomidate Mg Given: 20 paralytic: Rocuronium Mg Given: 80 Assist Device Used: other (GlideScope) ET Tube Size: 8 ET Tube Uncuffed: No Tube Secured Depth (cm): 23 Tube Secured Location: lips Tube Placement Confirmation: visualized tube passing through cords, equal breath sounds bilaterally, no breath sounds over epigastrium and confirmation by capnometry Patient Tolerated Procedure: well and no complications Intubation Complications: none Critical Care Time Critical Care Time Critical Care Time: Yes Total Critical Care Time: 90 Attestation: I have personally provided critical care time. Time includes review of lab data, radiology results, discussion with consultants, and monitoring for potential decompensation. Intervention performed as documented. Discharge Plan Discharge Clinical Impression: Acute respiratory failure with hypoxia, Pneumonia Patient Disposition: Admitted As Inpatient
[2021-11-19 18:50] LABS: MANUAL DIFF FLAG NO
[2021-11-19 18:51] LABS: Basophils Absolute Auto 0.1 X10*3/uL (0.0-0.2); Basophils Percent Auto 0.7 % (0-2); Eosinophils Absolute Auto 0.1 X10*3/uL (0.0-0.4); Eosinophils Percent Auto 0.6 % (0-4); Hematocrit 33.3 % (37.0-47.0); Hemoglobin 10.1 g/dl (12.0-16.0); Imm Gran Abs Auto 0.11 X10*3/uL (0.00-0.03); Imm Gran Pct Auto 0.7 % (0.0-0.4); Lymphocytes Absolute Auto 0.6 X10*3/uL (1.2-4.9); Lymphocytes Percent Auto 3.5 % (20-40); Mean Corpuscular HGB Conc 30.3 g/dl (31.0-35.0); Mean Corpuscular Hemoglobin 25.1 pg (27.0-33.0); Mean Corpuscular Volume 82.8 fL (80.0-98.0); Mean Platelet Volume 10.9 fL (9.4-12.3); Neutrophils Absolute Auto 14.8 x10*3/uL (2.0-8.3); Neutrophils Percent Auto 88.5 % (45-73); Platelet Count 211 X10*3/uL (160-400); Red Blood Count 4.02 X10*6/uL (4.20-5.50); Red Cell Distribution Width 15.4 % (11.0-16.0); White Blood Count 16.7 X10*3/uL (4.8-10.8)
[2021-11-19 18:56] LABS: INTERNATIONAL NORM RATIO 1.1 (0.9-1.1); Prothrombin Time 12.4 SEC (10.0-13.1)
[2021-11-19 18:59] LABS: D Dimer High Sensitivity 578 NG/ML
[2021-11-19 19:05] LABS: Venous Blood Gas Refer to POC result
[2021-11-19 19:06] LABS: VBG Base Excess 3.8 mmol/L; VBG HCO3 26 mmol/L (22-26); VBG pCO2 33 mmHg; VBG pO2 116 mmHg
[2021-11-19] MEDS: Piperacillin Sodium/Tazobactam 3.375 GM in 0.9 % Sodium Chloride 50 ML IV (19:30)
[2021-11-19] MEDS: 0.9 % Sodium Chloride 2,000 ML 999 ML IVCONT (19:30)
[2021-11-19 19:31] LABS: Lactic Acid 1.8 mmol/L (0.5-2.0)
[2021-11-19 19:43] LABS: Troponin-I High Sensitivity 21.9 ng/L (<3.5-17.0)
[2021-11-19 19:43] LABS: B Type Natriuretic Peptide 304 pg/mL (<100)
[2021-11-19 19:48] LABS: Alanine Aminotransferase 12 U/L (0-31); Albumin Level 3.2 g/dL (3.5-5.0); Alkaline Phosphatase 80 U/L (39-117); Anion Gap 20 (12-20); Aspartate Amino Transferase 16 U/L (5-31); Bilirubin Direct 0.3 mg/dL (0.0-0.5); Bilirubin Total 0.5 mg/dL (0.0-1.0); Blood Urea Nitrogen 20 mg/dL (9-16); Calcium 8.5 mg/dL (8.4-10.2); Carbon Dioxide 23 mmol/L (22-29); Chloride 103 mmol/L (96-108); Creatinine Clr Calc Pharmacy 62.3; Estimated Glomerular Filt Rate 42; Glucose Random 199 mg/dL (60-115); Magnesium 2.2 mg/dL (1.6-2.6); Potassium 4.8 mmol/L (3.3-5.1); Sodium 141 mmol/L (135-145); Total Protein 6.2 g/dL (6.5-8.0)
[2021-11-19 20:08] LABS: TSH reflex Free T4 1.84 uIU/mL (0.32-4.0)
[2021-11-19] MEDS: propofoL 1,000 MG/100 ML VIAL 36.53 MG IVCONT (20:17)
[2021-11-19] MEDS: Midazolam HCl/PF 2 MG/2 ML VIAL IVPUSH (20:20)
[2021-11-19 20:54] LABS: COVID-19 Test Negative (Negative); IDNOW Serial# 55D5AD1C
[2021-11-19] MEDS: iohexoL 350 MG/ML 100 ML INFUS..BTL IV (21:45)
--- NOTE | 2021-11-19 23:00 | PC.NURSE ---
Patient was intubated very shortly after arrival to ED. Arrived via ambulance with CPAP, but Oxygen saturation remained at 79%. Dr. Espino intubated the patient at 17:12 without difficulty. 8 tube, 22 at the lip. Pt was medicated as ordered, and entered into MAR. Propofol drip currently infusing at 50mcg/kg/min, per protocol. Soft restraints applied for non-behavioral restraint. Pt has been suctioned several times throughout this RN's shift. Ventilator settings: Ppeak: 39 cmH2O Ftot: 20 Vte: 343ml Vetot: 6.86ml I:E : 1:3.8 PEEP: 10 cmH2O O2: 40%, then 50% at 23:00 Vmax: 60 L/min Vsens 2.0 L/min Vital signs stable. Plan for ICU admission. Family members (Patricia & Dilcia) at bedside, and spoke with ED physician, this RN, and cash register operator.
--- NOTE | 2021-11-19 23:03 | P.HPCC_ITS ---
History of Present Illness Date of Service: 11/19/21 Attending physician on admission: Bin Jurado Chief Complaint: dyspnea Patient is a? 71-year-old female with a past medical history of? COPD (on home 02), congestive heart failure, diabetes mellitus? type 2,? chronic kidney disease,? hyperlipidemia, hypertension, hypothyroidism, peripheral vascular disease,? and recent COVID infection with admission x 1 month ago? who presented to the emergency room? via EMS with complaint of dyspnea.? Per EMS, patient?s saturation 68% on room air,? low 70s on 2 L via nasal cannula,? she was placed on CPAP during? transfer to hospital.? On arrival to the emergency room? she was satting 79% on CPAP, obtunded, very tachypneic requiring emergent intubation.? ? Laboratory data significant for? WBC 16.7, hemoglobin 10.1, hematocrit 33, neutrophils 88,? BUN 20, creatinine 1.26, albumin 3.2.? ?Venous blood gas 7.50/33/116/26 IMAGING: Chest Xray:? with some signs of congestion and bilateral infiltrates? Chest CTA:? no pulmonary embolism.? Multifocal areas of consolidation more on left lower lobe. Abdominal CT: Persistent mediastinal lymphadenopathy. There is retroperitoneal lymphadenopathy. Enlarged right inguinal lymph node. These findings are nonspecific. Metastatic disease is possible. ?In the emergency room the patient received? 2 L of normal saline, and empiric Zosyn. Review of Systems Review of Systems: unable to perform as patient is intubated PMFSH Past Medical History Medical History (Updated 11/19/21 @ 23:16 by Julianna Decker NP) CKD (chronic kidney disease) Congestive heart failure COVID Diabetes mellitus with insulin therapy HLD (hyperlipidemia) HTN (hypertension) Hypothyroidism Lower extremity edema Migraine Obesity Pseudotumor cerebri PVD (peripheral vascular disease) Family History Family History Mother Heart attack, Onset Age: 92 Father Heart attack, Onset Age: 66 Other Diabetes Surgical History Surgical History H/O cataract extraction H/O hysterectomy for benign disease Hx of cholecystectomy S/P appendectomy Social History Social History Alcohol intake: never Patient Tobacco Use Status: Never used Tobacco Advance Directives: Yes Advance Directives on File: Yes Advance Directives Date on File: 09/26/20 service: No Current occupational status: disabled Meds Allergies Allergy/AdvReac Type Severity Reaction Status Date / Time oxycodone [From Percocet] Allergy Intermediate Rash Verified 11/19/21 17:16 Active Medications: Current Medications Chlorhexidine Gluconate (Chlorhexidine Gluc Oral Rinse 15 Ml Mouthwash) 15 ml BUCCAL TID ALAN Heparin Sodium (Porcine) (Heparin Sodium,Porcine 5,000 Unit/Ml Vial) 5,000 unit SUBCUT Q8H ALAN Propofol (Diprivan) 1,000 mg in 100 mls @ 0 mls/hr IVCONT .Q0M ALAN; Protocol Last Titration: 11/19/21 20:51 Dose: 50 mcg/kg/min, 45.66 mls/hr Piperacillin Sod/Tazobactam (Sod 4.5 gm/ Sodium Chloride) 100 mls @ 200 mls/hr IV Q6H ALAN Furosemide 200 mg/ Sodium (Chloride) 100 mls @ 5 mls/hr IVCONT .Q20H ALAN Albumin Human (Kedbumin 25 %) 100 mls @ 100 mls/hr IV ONCE ONE Stop: 11/19/21 23:45 Pantoprazole Sodium (Pantoprazole Sodium 40 Mg/10 Ml Vial) 40 mg IVPUSH DAILY@0630 [facility] Home Medications Medication Instructions Recorded Confirmed Last Taken Type amitriptyline 50 mg tablet 25 mg PO DAILY 10/08/21 10/08/21 Unknown History aspirin 325 mg tablet 325 mg PO DAILY 10/08/21 10/08/21 Unknown History brinzolamide 1 %-brimonidine 0.2 % 1 drp ophthalmic-Right BID 10/08/21 10/08/21 Unknown History eye drops,suspension (Simbrinza) chlordiazepoxide HCl 10 mg capsule 10 mg PO BEDTIME 10/08/21 10/08/21 Unknown History citalopram 20 mg tablet 20 mg PO DAILY 10/08/21 10/08/21 Unknown History clonazepam 0.5 mg tablet 0.5 mg PO BID 10/08/21 10/08/21 Unknown History docusate sodium 100 mg tablet 100 mg PO DAILY 10/08/21 10/08/21 Unknown History furosemide 40 mg tablet 40 tab PO BID@0900,1800 10/08/21 10/08/21 Unknown History hydroxychloroquine 200 mg tablet 200 mg PO BID 10/08/21 10/08/21 Unknown History insulin glargine 100 unit/mL (3 80 unit subcut BEDTIME 10/08/21 10/08/21 Unknown History mL) subcutaneous pen (Lantus Solostar U-100 Insulin) insulin lispro protamine-lispro 7 - 15 ea subcut TIDAC 10/08/21 10/08/21 Unknown History 100 unit/mL (75-25) subcutaneous pen levothyroxine 175 mcg tablet 175 mcg PO DAILY@0600 10/08/21 10/08/21 Unknown History multivitamin 1 tab PO DAILY 10/08/21 10/08/21 Unknown History netarsudil 0.02 %-latanoprost 1 drp ophthalmic (eye) BEDTIME 10/08/21 10/08/21 Unknown History 0.005 % eye drops (Rocklatan) simvastatin 20 mg tablet 20 mg PO BEDTIME 10/08/21 10/08/21 Unknown History sitagliptin 100 mg tablet (Januvia) 100 mg PO DAILY 10/08/21 10/08/21 Unknown History Physical Exam Vital Signs: Vital Signs: Last Vital Signs Pulse 62 11/19/21 20:51 Resp 20 11/19/21 20:51 BP 129/39 L 11/19/21 20:51 Pulse Ox 100 11/19/21 20:51 O2 Del Method 11/19/21 17:03 FiO2 40 11/19/21 20:10 BMI result Body Mass Index 55.8 ?General:?Patient intubated. ?HEENT:? Head is normocephalic, atraumatic, pupils equal round reactive to light accommodation bilaterally.? Extraocular movements appear intact.? Buccal mucosa is dry, Neck is supple ?Cardiac:? Clear S1-S2, no murmurs rubs or gallops. ?Pulmonary: Lungs for rhonchi throughout. On AC setting. ?Abdomen:? Protuberant, positive bowel sounds in all 4 quadrants.? Soft, nontender, no rebound or guarding.?? ?Musculoskeletal:? Moving all 4 extremities randomly. Gait not assessed at this point. ?Skin:? Extremely dry skin BLE, discoloration from PVD. +3 Edema BLE. Trace edema on BUE ?Neurologic:No focal deficits noted.Motor strength as above.?? Vascular:? 2+ pulses upper and lower extremities distally.? Results Labs CBC and Chem 7: 11/19/21 18:38 11/19/21 18:42 Labs: Laboratory Results - last 24 hr 11/19/21 11/19/21 11/19/21 18:37 18:37 18:37 MCV MCH MCHC RDW Plt Count MPV Immature Gran % (Auto) Neut % (Auto) Lymph % (Auto) Beauregard % (Auto) Eos % (Auto) Baso % (Auto) Lymph # (Auto) Bea[place]gard # (Auto) Eos # (Auto) Baso # (Auto) Abs Immat Gran (auto) Absolute Neuts (auto) Absolute Nucleated RBC Nucleated RBC % (auto) PT 12.4 INR 1.1 D-Dimer High Sensitivty 578 VBG pH 7.50 H VBG pCO2 33 VBG pO2 116 VBG HCO3 26 VBG O2 Saturation 99.0 VBG Base Excess 3.8 Anion Gap Estim Creat Clear Calc Estimated GFR Random Glucose Lactic Acid Calcium Magnesium Total Bilirubin Direct Bilirubin AST ALT Alkaline Phosphatase B-Natriuretic Peptide Total Protein Albumin TSH COVID-19 (DENY) COVID-19 Clin Com 11/19/21 11/19/21 11/19/21 18:38 18:38 18:41 MCV 82.8 MCH 25.1 L MCHC 30.3 L RDW 15.4 Plt Count 211 MPV 10.9 Immature Gran % (Auto) 0.7 H Neut % (Auto) 88.5 H Lymph % (Auto) 3.5 L Beauregard % (Auto) 6.0 Eos % (Auto) 0.6 Baso % (Auto) 0.7 Lymph # (Auto) 0.6 L Bea[place]gard # (Auto) 1.0 Eos # (Auto) 0.1 Baso # (Auto) 0.1 Abs Immat Gran (auto) 0.11 H Absolute Neuts (auto) 14.8 H Absolute Nucleated RBC 0.000 Nucleated RBC % (auto) 0.0 PT INR D-Dimer High Sensitivty VBG pH VBG pCO2 VBG pO2 VBG HCO3 VBG O2 Saturation VBG Base Excess Anion Gap Estim Creat Clear Calc Estimated GFR Random Glucose Lactic Acid 1.8 Calcium Magnesium Total Bilirubin Direct Bilirubin AST ALT Alkaline Phosphatase B-Natriuretic Peptide 304 H Total Protein Albumin TSH COVID-19 (DENY) COVID-19 Clin Com 11/19/21 11/19/21 11/19/21 18:42 18:42 20:31 MCV MCH MCHC RDW Plt Count MPV Immature Gran % (Auto) Neut % (Auto) Lymph % (Auto) Beauregard % (Auto) Eos % (Auto) Baso % (Auto) Lymph # (Auto) Bea[place]gard # (Auto) Eos # (Auto) Baso # (Auto) Abs Immat Gran (auto) Absolute Neuts (auto) Absolute Nucleated RBC Nucleated RBC % (auto) PT INR D-Dimer High Sensitivty VBG pH VBG pCO2 VBG pO2 VBG HCO3 VBG O2 Saturation VBG Base Excess Anion Gap Cancelled 20 Estim Creat Clear Calc Cancelled 62.3 Estimated GFR Cancelled 42 Random Glucose Cancelled 199 H Lactic Acid Calcium Cancelled 8.5 Magnesium Cancelled 2.2 Total Bilirubin Cancelled 0.5 Direct Bilirubin Cancelled 0.3 AST Cancelled 16 ALT Cancelled 12 Alkaline Phosphatase Cancelled 80 D B-Natriuretic Peptide Total Protein Cancelled 6.2 L Albumin Cancelled 3.2 L TSH 1.84 COVID-19 (DENY) Negative COVID-19 Clin Com See Note Imaging Radiologist's Impressions: Impressions Chest X-Ray 11/19/21 17:29 IMPRESSION: Low lung volumes with diffuse bilateral patchy infiltrates. Bilateral layering effusions. Endotracheal tube tip is 3.5 cm from the colette. Abdomen/Pelvis CT 11/19/21 21:51 IMPRESSION: 1. No pulmonary embolism. 2. Small left and moderate right pleural effusions. Multifocal areas of consolidation, particularly in the left lower lobe. This could be near complete atelectasis of this lobe. Pneumonia must be considered as well. 3. Persistent mediastinal lymphadenopathy. There is retroperitoneal lymphadenopathy. Enlarged right inguinal lymph node. These findings are nonspecific. Metastatic disease is possible. 4. Endotracheal tube terminates approximately 1.7 cm above the colette. Consider slight retraction. VTE: negative Chest CTA 11/19/21 21:51 IMPRESSION: 1. No pulmonary embolism. 2. Small left and moderate right pleural effusions. Multifocal areas of consolidation, particularly in the left lower lobe. This could be near complete atelectasis of this lobe. Pneumonia must be considered as well. 3. Persistent mediastinal lymphadenopathy. There is retroperitoneal lymphadenopathy. Enlarged right inguinal lymph node. These findings are nonspecific. Metastatic disease is possible. 4. Endotracheal tube terminates approximately 1.7 cm above the colette. Consider slight retraction. VTE: negative Assessment and Plan (1) Acute respiratory failure with hypoxia: Status: Acute (2) Pneumonia: Status: Acute (3) Acute exacerbation of congestive heart failure: Status: Acute (4) LEO (acute kidney injury): Status: Acute (5) Sepsis: Status: Acute Plan 71-year-old female congestive heart failure, diabetes mellitus? type 2,? chronic kidney disease,? hyperlipidemia, hypertension, hypothyroidism, peripheral vascular disease,? and recent COVID infection being admitted to the ICU for acute hypoxic respiratory failure requiring intubation? Plan: Neuro:? No acute issues. Cardiac:?? ?Congestive heart failure: chest x-ray and CT with notable? pulmonary congestion.? According to nititi , the patient does have a diagnosis of congestive heart failure but does not follow up with cardiology.? Will initiate Lasix drip.? Echo in the morning Pulmonary:?? Acute hypoxic respiratory failure- ? requiring emergent intubation-? likely from underlying pulmonary congestion and pneumonia. ? CTA negative for pulmonary embolism.? No evidence of severe septic shock? as lactic acid 1.8.? Receive? empiric antibiotics in the ED.? will continue antibiotics.? Wean off? vent as tolerated Renal:? LEO- most likely related to hypoperfusion.? Nonoliguric.? Received 2 l bolus in ED.? Continue to check renal induces and urine output Endo:? No acute issues.?? GI:? No acute issues. ID:? Leukocytosis,? this is likely sepsis from pulmonary source. Cultures pending. Will cont empiric? Zosyn. Will send sputum culture? Heme/Onc:? No acute issues. Psych:? No acute issues. Miscellaneous:? No acute issues. Prophylaxis:? Heparin,? PPI Diet:? NPO? CODE: FULL CODE? Critical care time spent:? 60 minutes Case discussed with attending Dr Jurado Critical Care Time Critical Care Time (minutes): 60
[2021-11-19] MEDS: Furosemide 200 MG in 0.9 % Sodium Chloride 80 ML IVCONT (23:20)
--- NOTE | 2021-11-19 23:37 | PC.NURSE ---
Report given to Rigo DELONG in ICU. Preparing to transfer to ICU [id number].
[2021-11-20] VITALS (36 sets, daily range): BP systolic 79–146; BP diastolic 24–70; PULSE 55–98; RESP 20–30; TEMP 34–37.5; O2SAT 90–100; BMI 53.5; BMI 53.2
[2021-11-20] MEDS: Albumin Human 25 % 100 ML IV ×4 (00:47→20:26)
[2021-11-20] MEDS: Heparin Sodium,Porcine 5,000 UNIT/ML VIAL 5000 UNIT SUBCUT ×4 (00:59→22:40)
[2021-11-20] MEDS: Piperacillin Sodium/Tazobactam 4.5 GM in 0.9 % Sodium Chloride 100 ML IV ×4 (01:56→19:03)
[2021-11-20] MEDS: propofoL 1,000 MG/100 ML VIAL 31.96 MG IVCONT ×2 (02:04→12:57)
[2021-11-20] MEDS: propofoL 1,000 MG/100 ML VIAL 27.4 MG IVCONT ×2 (04:33→07:12)
[2021-11-20 05:26] LABS: MANUAL DIFF FLAG NO
[2021-11-20 05:26] LABS: VBG Base Excess 4.1 mmol/L; VBG HCO3 27 mmol/L (22-26); VBG pCO2 36 mmHg; VBG pH 7.48 (7.32-7.43); VBG pO2 34 mmHg
[2021-11-20 05:28] LABS: Venous Blood Gas Refer to POC result
[2021-11-20 05:29] LABS: Basophils Absolute Auto 0.1 X10*3/uL (0.0-0.2); Basophils Percent Auto 0.6 % (0-2); Eosinophils Absolute Auto 0.4 X10*3/uL (0.0-0.4); Eosinophils Percent Auto 2.8 % (0-4); Hematocrit 29.6 % (37.0-47.0); Imm Gran Abs Auto 0.08 X10*3/uL (0.00-0.03); Imm Gran Pct Auto 0.6 % (0.0-0.4); Lymphocytes Percent Auto 7.5 % (20-40); Mean Corpuscular HGB Conc 30.4 g/dl (31.0-35.0); Mean Corpuscular Hemoglobin 24.8 pg (27.0-33.0); Mean Corpuscular Volume 81.5 fL (80.0-98.0); Mean Platelet Volume 10.8 fL (9.4-12.3); Monocytes Absolute Auto 1.4 X10*3/uL (0.1-1.2); Monocytes Percent Auto 10.4 % (2-11); Neutrophils Absolute Auto 10.6 x10*3/uL (2.0-8.3); Neutrophils Percent Auto 78.1 % (45-73); Platelet Count 199 X10*3/uL (160-400); Red Blood Count 3.63 X10*6/uL (4.20-5.50); Red Cell Distribution Width 15.5 % (11.0-16.0); White Blood Count 13.5 X10*3/uL (4.8-10.8)
[2021-11-20 05:44] LABS: Alanine Aminotransferase 9 U/L (0-31); Alkaline Phosphatase 68 U/L (39-117); Anion Gap 16 (12-20); Aspartate Amino Transferase 11 U/L (5-31); Bilirubin Total 0.7 mg/dL (0.0-1.0); Blood Urea Nitrogen 21 mg/dL (9-16); Calcium 8.4 mg/dL (8.4-10.2); Carbon Dioxide 27 mmol/L (22-29); Chloride 103 mmol/L (96-108); Creatinine Clr Calc Pharmacy 57.7; Estimated Glomerular Filt Rate 40; Glucose Random 113 mg/dL (60-115); Magnesium 2.2 mg/dL (1.6-2.6); Phosphorus 3.8 mg/dL (2.7-4.5); Sodium 142 mmol/L (135-145); Total Protein 5.6 g/dL (6.5-8.0)
[2021-11-20] MEDS: Pantoprazole Sodium 40 MG/10 ML VIAL IVPUSH (06:22)
[2021-11-20] MEDS: Chlorhexidine Gluc Oral Rinse 15 ML MOUTHWASH BUCCAL ×3 (07:12→20:26)
--- NOTE | 2021-11-20 08:56 | PHA.MEDREC ---
Pharmacy Consult ? Medication Reconciliation Pharmacy has completed the medication reconciliation. Pt had list in chart from [facility], also called pt's contact Patricia ([phone]) to confirm eye drops. Patricia also clarified that Cindy no longer takes glipizide.
[2021-11-20] MEDS: Nystatin Powder 15 GM BOTTLE 1 APPL TOPICAL ×2 (09:13→20:27)
[2021-11-20] MEDS: propofoL 1,000 MG/100 ML VIAL 36.53 MG IVCONT ×2 (10:16→16:06)
--- NOTE | 2021-11-20 11:23 | PM.CCPN ---
Subjective Subjective Date of Service: 11/20/21 Interval History: 71-year-old lady with underlying history of COPD, congestive heart failure, diabetes mellitus, CKD, hypertension, hypothyroidism, peripheral vascular disease, recent admission for COVID-19 approximately 1 months prior admitted on 11/19/2021 with dyspnea and hypoxia. On ER evaluation patient with prominent hypoxia resistant to CPAP support requiring intubation and ventilatory support. CT chest with bilateral pleural effusions with compressive atelectasis. Also noted to have leukocytosis. Patient was started on empiric broad-spectrum antibiotics and diuresis and admitted to intensive care unit. No events overnight. Critical Care Time (minutes): 60 Physical Exam Vital Signs: Vital Signs: Last Vital Signs Temp 97.0 F 11/20/21 11:00 Pulse 59 11/20/21 11:00 Resp 20 11/20/21 11:00 BP 112/47 L 11/20/21 11:00 Pulse Ox 97 11/20/21 11:00 O2 Del Method 11/20/21 11:00 FiO2 40 11/20/21 11:08 BMI result Body Mass Index 53.2 Const: General: no acute distress and other (Sedated on the vent) Nutritional Appearance: obese Eyes: Sclerae: sclerae normal EOM: EOMs intact bilaterally Neck: Neck: Yes no lymphadenopathy, Yes trachea midline and Yes supple Resp: Auscultation: crackles (Diffuse bilateral) Cardio: Rate: regular rate Rhythm: regular rhythm Heart sounds: no gallops, no murmurs and no rubs GI: Palpation (GI): Soft to palpation and Other GI palpation findings present ( Nontender) Auscultation: normal bowel sounds Extrem: General: Yes no pedal edema, No clubbing and No cyanosis Objective Data Labs CBC & Chem 7: 11/20/21 05:17 11/20/21 05:17 Labs: Laboratory Results - last 24 hr 11/19/21 11/19/21 11/19/21 18:37 18:37 18:37 WBC RBC Hgb Hct MCV MCH MCHC RDW Plt Count MPV Immature Gran % (Auto) Neut % (Auto) Lymph % (Auto) [place] % (Auto) Eos % (Auto) Baso % (Auto) Lymph # (Auto) [place] # (Auto) Eos # (Auto) Baso # (Auto) Abs Immat Gran (auto) Absolute Neuts (auto) Absolute Nucleated RBC Nucleated RBC % (auto) PT 12.4 INR 1.1 D-Dimer High Sensitivty 578 VBG pH VBG pCO2 VBG pO2 VBG HCO3 VBG O2 Saturation VBG Base Excess Sodium Potassium Chloride Carbon Dioxide Anion Gap BUN Creatinine Estim Creat Clear Calc Estimated GFR Random Glucose Lactic Acid Calcium Phosphorus Magnesium Total Bilirubin Direct Bilirubin AST ALT Alkaline Phosphatase Troponin I High Sens 21.9 H D B-Natriuretic Peptide Total Protein Albumin TSH COVID-19 (DENY) COVID-19 [employer] [facility] 11/19/21 11/19/21 11/19/21 18:37 18:38 18:38 WBC 16.7 H RBC 4.02 L Hgb 10.1 L Hct 33.3 L MCV 82.8 MCH 25.1 L MCHC 30.3 L RDW 15.4 Plt Count 211 MPV 10.9 Immature Gran % (Auto) 0.7 H Neut % (Auto) 88.5 H Lymph % (Auto) 3.5 L [place] % (Auto) 6.0 Eos % (Auto) 0.6 Baso % (Auto) 0.7 Lymph # (Auto) 0.6 L [place] # (Auto) 1.0 Eos # (Auto) 0.1 Baso # (Auto) 0.1 Abs Immat Gran (auto) 0.11 H Absolute Neuts (auto) 14.8 H Absolute Nucleated RBC 0.000 Nucleated RBC % (auto) 0.0 PT INR D-Dimer High Sensitivty VBG pH 7.50 H VBG pCO2 33 VBG pO2 116 VBG HCO3 26 VBG O2 Saturation 99.0 VBG Base Excess 3.8 Sodium Potassium Chloride Carbon Dioxide Anion Gap BUN Creatinine Estim Creat Clear Calc Estimated GFR Random Glucose Lactic Acid 1.8 Calcium Phosphorus Magnesium Total Bilirubin Direct Bilirubin AST ALT Alkaline Phosphatase Troponin I High Sens B-Natriuretic Peptide Total Protein Albumin TSH COVID-19 (DENY) COVID-19 [employer] 11/19/21 11/19/21 11/19/21 18:41 18:42 18:42 WBC RBC Hgb Hct MCV MCH MCHC RDW Plt Count MPV Immature Gran % (Auto) Neut % (Auto) Lymph % (Auto) [place] % (Auto) Eos % (Auto) Baso % (Auto) Lymph # (Auto) [place] # (Auto) Eos # (Auto) Baso # (Auto) Abs Immat Gran (auto) Absolute Neuts (auto) Absolute Nucleated RBC Nucleated RBC % (auto) PT INR D-Dimer High Sensitivty VBG pH VBG pCO2 VBG pO2 VBG HCO3 VBG O2 Saturation VBG Base Excess Sodium Cancelled 141 Potassium Cancelled 4.8 Chloride Cancelled 103 Carbon Dioxide Cancelled 23 Anion Gap Cancelled 20 BUN Cancelled 20 H D Creatinine Cancelled 1.26 Estim Creat Clear Calc Cancelled 62.3 Estimated GFR Cancelled 42 Random Glucose Cancelled 199 H Lactic Acid Calcium Cancelled 8.5 Phosphorus Magnesium Cancelled 2.2 Total Bilirubin Cancelled 0.5 Direct Bilirubin Cancelled 0.3 AST Cancelled 16 ALT Cancelled 12 Alkaline Phosphatase Cancelled 80 D Troponin I High Sens B-Natriuretic Peptide 304 H Total Protein Cancelled 6.2 L Albumin Cancelled 3.2 L TSH 1.84 COVID-19 (DENY) COVID-19 Clin [facility] 11/19/21 11/20/21 11/20/21 20:31 05:17 05:17 WBC 13.5 H RBC 3.63 L Hgb 9.0 L Hct 29.6 L MCV 81.5 MCH 24.8 L MCHC 30.4 L RDW 15.5 Plt Count 199 MPV 10.8 Immature Gran % (Auto) 0.6 H Neut % (Auto) 78.1 H Lymph % (Auto) 7.5 L [place] % (Auto) 10.4 Eos % (Auto) 2.8 Baso % (Auto) 0.6 Lymph # (Auto) 1.0 L [place] # (Auto) 1.4 H Eos # (Auto) 0.4 Baso # (Auto) 0.1 Abs Immat Gran (auto) 0.08 H Absolute Neuts (auto) 10.6 H Absolute Nucleated RBC 0.000 Nucleated RBC % (auto) 0.0 PT INR D-Dimer High Sensitivty VBG pH VBG pCO2 VBG pO2 VBG HCO3 VBG O2 Saturation VBG Base Excess Sodium 142 Potassium 4.0 Chloride 103 Carbon Dioxide 27 Anion Gap 16 BUN 21 H Creatinine 1.32 Estim Creat Clear Calc 57.7 Estimated GFR 40 Random Glucose 113 Lactic Acid Calcium 8.4 Phosphorus 3.8 Magnesium 2.2 Total Bilirubin 0.7 Direct Bilirubin AST 11 ALT 9 Alkaline Phosphatase 68 Troponin I High Sens B-Natriuretic Peptide Total Protein 5.6 L Albumin 3.0 L TSH COVID-19 (DENY) Negative COVID-19 Clin Com See Note 11/20/21 05:20 WBC RBC Hgb Hct MCV MCH MCHC RDW Plt Count MPV Immature Gran % (Auto) Neut % (Auto) Lymph % (Auto) [place] % (Auto) Eos % (Auto) Baso % (Auto) Lymph # (Auto) [place] # (Auto) Eos # (Auto) Baso # (Auto) Abs Immat Gran (auto) Absolute Neuts (auto) Absolute Nucleated RBC Nucleated RBC % (auto) PT INR D-Dimer High Sensitivty VBG pH 7.48 H VBG pCO2 36 VBG pO2 34 VBG HCO3 27 H VBG O2 Saturation 55.0 VBG Base Excess 4.1 Sodium Potassium Chloride Carbon Dioxide Anion Gap BUN Creatinine Estim Creat Clear Calc Estimated GFR Random Glucose Lactic Acid Calcium Phosphorus Magnesium Total Bilirubin Direct Bilirubin AST ALT Alkaline Phosphatase Troponin I High Sens B-Natriuretic Peptide Total Protein Albumin TSH COVID-19 (DENY) COVID-19 Clin Com Microbiology Microbiology Results: Microbiology 11/20/21 03:44 Sputum - Suctioned Gram Stain - Final Progress Note: A&P Assessment and plan (1) Acute respiratory failure with hypoxia: Status: Acute (2) Acute exacerbation of congestive heart failure: Status: Acute (3) ANDRES (acute kidney injury): Status: Acute (4) Sepsis: Status: Acute (5) Diabetes mellitus with insulin therapy: Status: Acute (6) Hypothyroidism: Status: Acute (7) Obesity: Status: Acute (8) HTN (hypertension): Status: Acute Plan Assessment: 71-year-old lady with underlying obesity, COPD, CHF admitted with acute hypoxic respiratory failure secondary to congestive heart failure exacerbation and possible pneumonia, now requiring ventilatory support. Plan: Neuro: No acute issues. Cardiac: Exacerbation of underlying congestive heart failure, improving with diuresis. 2D echocardiogram is pending. Pulmonary: Acute hypoxic respiratory failure secondary to exacerbation of underlying congestive heart failure with possible pneumonia contribution now requiring ventilatory support. Continue to titrate off ventilatory support as tolerated. Renal: Andres I and CKD likely secondary to CHF exacerbation. Non oliguric. Continue to monitor renal indices and urine output. Endo: No acute issues. Underlying diabetes mellitus. GI: No acute issues. ID: Possible underlying pneumonia, empirically covered with broad-spectrum antibiotics. Cultures are pending. Heme/Onc: No acute issues. Psych: No acute issues. Miscellaneous: No acute issues. Prophylaxis: Heparin, ppi Diet: Tube feeds Critical care time spent: 60 minutes Quality Stroke Does the patient have a stroke diagnosis?: No VTE Prior VTE?: No VTE Risk Level:: Medical - moderate - high VTE Device Contraindication: Treatment Not Indicated VTE Drug Contraindication: N/A - Med Ordered
--- NOTE | 2021-11-20 12:00 | CA_ITS ---
Transthoracic Echocardiogram Patient (Last, First, Middle): Cindy Toney F Gender: Female Date of : 1950 Age: 71 Procedure Date: 11/20/2021 Procedure Type: Transthoracic Echocardiogram Location: ICU Height: 165.1 cm Weight: 144.7 kg BSA: 2.41 m2 Heart Rate: 65 bpm BP: 112 / 47 mmHg Field Service Technician: SB Referring MD: Bin Jurado MD Symptoms: dyspnea Study Quality: Technically Difficult/BSA/Vent/Contrast ECG Rhythm: Sinus Conclusions: - Normal left ventricular cavity size. There is mildly increased left ventricular wall thickness. The left ventricular systolic function is hyperdynamic. The visually estimated ejection fraction is >70%. - Mildly increased right ventricular cavity size. There is borderline right ventricular systolic function. - The left atrium is severely dilated. The right atrium is normal in size. - There is mild aortic valve stenosis. - There is severe mitral annular calcification. - Mean gradient across MV of 6-8 mm Hg at HR 67 beats/min. Gradient can be present due to severe mitral annular calcification. Findings Procedure Information Contrast agent, definity, is being given per protocol without apparent complications. Left Ventricle Normal left ventricular cavity size. There is mildly increased left ventricular wall thickness. The left ventricular systolic function is hyperdynamic. The visually estimated ejection fraction is >70%. There is no evidence of regional wall motion abnormalities. Diastolic function is indeterminate on the basis of available data. Right Ventricle Mildly increased right ventricular cavity size. There is borderline right ventricular systolic function. Atria The left atrium is severely dilated. The right atrium is normal in size. Aortic Valve There is a normal trileaflet aortic valve. There is mild calcification of the aortic valve. There is mild thickening of the aortic valve. There is mild aortic valve stenosis. There is no aortic valve regurgitation. Mitral Valve There is severe mitral annular calcification. There is mild mitral valve regurgitation. There is no mitral valve stenosis. Mean gradient across MV of 6-8 mm Hg at HR 67 beats/min. Gradient can be present due to severe mitral annular calcification. Pulmonic Valve The pulmonic valve is likely normal. Tricuspid Valve Likely normal tricuspid valve structure and function. Tricuspid regurgitation envelope is inadequate for calculation of right ventricular systolic pressure. Significantly elevated right atrial pressure. Great Vessels All visible segments of the aorta are normal in size. The visualized portions of the pulmonary artery and branches are normal. Venous The inferior vena cava is dilated and does not collapse with inspiration. Pericardium/Pleural There is no evidence of pericardial effusion. There is a pleural effusion. Measurements 2D Linear Measurements IVSd: 1.40 0.6-0.9/0.6-1.0 cm LVIDd: 4.64 3.9-5.3/4.2-5.9 cm LVIDd Index: 1.93 2.4-3.2/2.2-3.1 cm/m2 LVPWd: 1.08 0.7-1.1 cm LA Diam: 3.70 2.7-3.8/3.0-4.0 cm LAIDs Index: 1.54 1.5-2.3 cm/m2 LV Mass: 271.49 67-162/88-224 g LV Mass Index: 112.65 43-95/49-115 g/m2 LVOT Diam: 2.20 3.0+(-)1.3 cm 2D Systolic Function EF 4C: 63.10 >55% EF 2C: 74.70 >55% EF BiP: 70.10 >55% Mitral Valve MV VTI: 0.60 MV Pk Tristen: 1.95 MV Mn Tristen: 1.20 MV Pk Grad: 15.00 MV Mn Grad: 7.00 MV Pk E: 2.14 MV PK A: 1.46 MV Decel Time: 399.00 E/A: 1.50 E'Lateral: 3.99 E'Medial: 3.99 E/E' Med: 53.60 E/E' Lat: 53.60 PHT: 104.00 MVA PHT: 2.12 MVA Continuity: 1.07 Decel Cottle: 6.03 Aortic Valve AoV Pk Tristen: 1.97 AoV Mn Tristen: 1.40 AoV VTI: 0.47 AoV Pk Grad: 16.00 Aov Mn Grad: 9.00 EVAN Cont.VTI: 1.37 LVOT LVOT Pk Tristen: 0.72 LVOT Mn Tristen: 0.52 LVOT VTI: 0.17 LVOT Pk Grad: 2.00 LVOT Mn Grad: 2.00 LVOT Diam: 2.20 LVOT Area: 3.80 Diastolic Function MV Pk E: 2.14 MV Pk A: 1.46 E/A: 1.50 E'Medial: 3.99 E/E' Med: 53.60 E' Laterial: 3.99 E/E' Lat: 53.60 Right Ventricle TAPSE (mm): 18.00 TVS' Tristen: 9.25 Tricuspid Valve RA Press: 15.00 Great Vessels Aorta Sinus of Valsalva: 2.40 2.0-3.5 cm Pulmonary Valve PV Pk Tristen: 0.93 Peak PV Grad: 3.00 Updated in Other Vendor System with Status of Final Kenji Green MD electronically signed on 11/21/2021 9:54:56 PM with status of Final
--- NOTE | 2021-11-20 14:13 | MHC.CM.PN ---
Pt is presently intubated in ICU and unable to participate in CM assessment. Information obtained from EMR and phone conversation with pts niece, Patricia. Per Patricia, pt resides with her adult grandchildren, has [facility] for skilled RN and PT visits. She uses a walker and has [employer] for PRN O2 needs. Family assists with transportation and any other need pt has. Per Patricia, pt may need STR placement following ICU recovery. Discussed payor based facilities - will initiate broad referrals and update [facility]. IMM in chart, HCP invalid as the chosen agents also signed as witnesses. Will complete new HCP w/pt once she is A&O and off vent. Vax x 3. CM to follow
[2021-11-20] MEDS: propofoL 1,000 MG/100 ML VIAL 45.66 MG IVCONT ×5 (17:45→23:37)
[2021-11-20 18:35] LABS: Anion Gap 18 (12-20); Blood Urea Nitrogen 23 mg/dL (9-16); Calcium 8.3 mg/dL (8.4-10.2); Carbon Dioxide 24 mmol/L (22-29); Chloride 104 mmol/L (96-108); Creatinine Clr Calc Pharmacy 52.9; Estimated Glomerular Filt Rate 36; Glucose Random 153 mg/dL (60-115); Potassium 4.2 mmol/L (3.3-5.1); Sodium 142 mmol/L (135-145)
--- NOTE | 2021-11-20 22:11 | W.PM.CCHP ---
Procedures Date of Service Date of Service: 11/20/21 Central Line Placement Left IJ: Central Line Comments: Patient with poor peripheral access, requiring vasopressors.? Central line placed on Left internal jugular. Triple lumen central venous catheter placed in usual sterile conditions under ultrasound guidance for appropriate vascular access without immediate complications. Central line position verified with Chest XRAY. Consent for Procedure: Emergent-no informed consent obtained Time out performed: Yes Sterile Technique Used: Yes Patient placed on monitor/pulse ox: Yes MD prep: mask, gown and gloves Central line prep: Povidone-Iodine 1% Local anesthesia used: other anesthetic (On propofol for vent ) Ultrasound used for placement: Yes Central line lumen inserted: triple Post procedure: sutured in place, good blood return, all ports aspirated, flushed, capped and sterile dressing applied Post procedure x-ray: tip of catheter in good position and no pneumothorax seen Patient tolerated procedure: well Complications: none
[2021-11-20] MEDS: fentaNYL citrate/PF 100 MCG/2 ML VIAL IVPUSH (23:47)
[2021-11-20] MEDS: fentaNYL citrate/NS 1,000 MCG/100 ML PLAST..BAG 10 MCG IVCONT (23:56)
[2021-11-21] VITALS (37 sets, daily range): BP systolic 107–146; BP diastolic 39–63; PULSE 68–709; RESP 20–34; TEMP 34–38.1; O2SAT 1–95; BMI 52.4
[2021-11-21] MEDS: Piperacillin Sodium/Tazobactam 4.5 GM in 0.9 % Sodium Chloride 100 ML IV ×4 (00:35→18:00)
[2021-11-21] MEDS: Albumin Human 25 % 100 ML IV (01:57)
[2021-11-21] MEDS: propofoL 1,000 MG/100 ML VIAL 45.66 MG IVCONT ×11 (01:58→22:15)
[2021-11-21] MEDS: fentaNYL citrate/NS 1,000 MCG/100 ML PLAST..BAG 15 MCG IVCONT (04:18)
[2021-11-21 05:28] LABS: ABG Base Excess 0.3 mmol/L; ABG HCO3 24 mmol/L (22-26); ABG pCO2 39 mmHg (32-45); ABG pO2 55 mmHg (83-108)
[2021-11-21 05:37] LABS: Basophils Absolute Auto 0.1 X10*3/uL (0.0-0.2); Basophils Percent Auto 0.7 % (0-2); Eosinophils Absolute Auto 0.3 X10*3/uL (0.0-0.4); Hematocrit 27.5 % (37.0-47.0); Hemoglobin 8.5 g/dl (12.0-16.0); Imm Gran Abs Auto 0.21 X10*3/uL (0.00-0.03); Imm Gran Pct Auto 1.3 % (0.0-0.4); Lymphocytes Absolute Auto 0.9 X10*3/uL (1.2-4.9); Lymphocytes Percent Auto 5.7 % (20-40); MANUAL DIFF FLAG SCAN; Mean Corpuscular HGB Conc 30.9 g/dl (31.0-35.0); Mean Corpuscular Hemoglobin 25.3 pg (27.0-33.0); Mean Corpuscular Volume 81.8 fL (80.0-98.0); Mean Platelet Volume 11.3 fL (9.4-12.3); Monocytes Absolute Auto 1.6 X10*3/uL (0.1-1.2); Monocytes Percent Auto 10.1 % (2-11); Neutrophils Percent Auto 80.2 % (45-73); Platelet Count 203 X10*3/uL (160-400); Red Blood Count 3.36 X10*6/uL (4.20-5.50); Red Cell Distribution Width 16.4 % (11.0-16.0); SCAN SMEAR FLAG 1; White Blood Count 16.2 X10*3/uL (4.8-10.8)
[2021-11-21] MEDS: Pantoprazole Sodium 40 MG/10 ML VIAL IVPUSH (05:44)
[2021-11-21 06:06] LABS: Albumin Level 3.8 g/dL (3.5-5.0); Anion Gap 19 (12-20); Blood Urea Nitrogen 26 mg/dL (9-16); Calcium 8.1 mg/dL (8.4-10.2); Carbon Dioxide 26 mmol/L (22-29); Chloride 100 mmol/L (96-108); Creatinine Clr Calc Pharmacy 41.2; Estimated Glomerular Filt Rate 27; Glucose Random 290 mg/dL (60-115); Magnesium 2.1 mg/dL (1.6-2.6); Phosphorus 4.8 mg/dL (2.7-4.5); Potassium 3.7 mmol/L (3.3-5.1); Sodium 141 mmol/L (135-145); Troponin-I High Sensitivity 48.4 ng/L (<3.5-17.0)
[2021-11-21 06:14] LABS: SLIDE REVIEW VERIFIED
[2021-11-21 06:17] LABS: Venous Blood Gas Refer to POC result
[2021-11-21] MEDS: Heparin Sodium,Porcine 5,000 UNIT/ML VIAL 5000 UNIT SUBCUT ×3 (07:31→23:15)
[2021-11-21] MEDS: Chlorhexidine Gluc Oral Rinse 15 ML MOUTHWASH BUCCAL ×3 (07:32→21:01)
[2021-11-21] MEDS: Nystatin Powder 15 GM BOTTLE 1 APPL TOPICAL ×2 (08:02→21:01)
--- NOTE | 2021-11-21 10:43 | P.PNCC_ITS ---
Subjective Subjective Date of Service: 11/21/21 Interval History: 71-year-old lady with underlying history of COPD, congestive heart failure, diabetes mellitus, CKD, hypertension, hypothyroidism, peripheral vascular disease, recent admission for COVID-19 approximately 1 months prior admitted on 11/19/2021 with dyspnea and hypoxia. On ER evaluation patient with prominent hypoxia resistant to CPAP support requiring intubation and ventilatory support. CT chest with bilateral pleural effusions with compressive atelectasis. Also noted to have leukocytosis. Patient was started on empiric broad-spectrum antibiotics and diuresis and admitted to intensive care unit. No events overnight. Failed pressure support trial today. Critical Care Time (minutes): 45 Physical Exam Vital Signs: Vital Signs: Last Vital Signs Temp 100.0 F 11/21/21 09:51 Pulse 78 11/21/21 09:51 Resp 20 11/21/21 09:51 BP 120/42 L 11/21/21 09:51 Pulse Ox 90 L 11/21/21 09:51 O2 Del Method 11/21/21 09:51 FiO2 50 11/21/21 09:51 BMI result Body Mass Index 52.4 Const: General: no acute distress and other (Sedated on the vent, arousable with sedation vacation.) Nutritional Appearance: obese and Edematous Eyes: Sclerae: sclerae normal EOM: EOMs intact bilaterally Neck: Neck: Yes no lymphadenopathy, Yes trachea midline and Yes supple Resp: Auscultation: crackles (Diffuse bilateral) Cardio: Rate: regular rate Rhythm: regular rhythm Heart sounds: no gallops, no murmurs and no rubs GI: Palpation (GI): Soft to palpation and Other GI palpation findings present ( Nontender) Auscultation: normal bowel sounds Extrem: General: No clubbing, No cyanosis and Yes edema (2+ bilateral) Objective Data Labs CBC & Chem 7: 11/21/21 05:12 11/21/21 05:12 Labs: Laboratory Results - last 24 hr 11/20/21 11/21/21 11/21/21 18:02 05:12 05:12 WBC 16.2 H RBC 3.36 L Hgb 8.5 L Hct 27.5 L MCV 81.8 MCH 25.3 L MCHC 30.9 L RDW 16.4 H Plt Count 203 MPV 11.3 Immature Gran % (Auto) 1.3 H Neut % (Auto) 80.2 H Lymph % (Auto) 5.7 L [place] % (Auto) 10.1 Eos % (Auto) 2.0 Baso % (Auto) 0.7 Lymph # (Auto) 0.9 L [place] # (Auto) 1.6 H Eos # (Auto) 0.3 Baso # (Auto) 0.1 Abs Immat Gran (auto) 0.21 H Absolute Neuts (auto) 13.0 H Absolute Nucleated RBC 0.000 Nucleated RBC % (auto) 0.0 Smear Tech's Comments VERIFIED O2 Saturation ABG pH at Pt Temp ABG pCO2 at Pt Temp ABG pO2 at Pt Temp ABG HCO3 ABG Base Excess (Actual) Sodium 142 Potassium 4.2 Chloride 104 Carbon Dioxide 24 Anion Gap 18 BUN 23 H Creatinine 1.44 H Estim Creat Clear Calc 52.9 Estimated GFR 36 Random Glucose 153 H Calcium 8.3 L Phosphorus Magnesium Troponin I High Sens 48.4 H D Albumin 11/21/21 11/21/21 05:12 05:23 WBC RBC Hgb Hct MCV MCH MCHC RDW Plt Count MPV Immature Gran % (Auto) Neut % (Auto) Lymph % (Auto) [place] % (Auto) Eos % (Auto) Baso % (Auto) Lymph # (Auto) [place] # (Auto) Eos # (Auto) Baso # (Auto) Abs Immat Gran (auto) Absolute Neuts (auto) Absolute Nucleated RBC Nucleated RBC % (auto) Smear Tech's Comments O2 Saturation 81.0 ABG pH at Pt Temp 7.40 ABG pCO2 at Pt Temp 39 ABG pO2 at Pt Temp 55 L ABG HCO3 24 ABG Base Excess (Actual) 0.3 Sodium 141 Potassium 3.7 Chloride 100 Carbon Dioxide 26 Anion Gap 19 BUN 26 H Creatinine 1.83 H Estim Creat Clear Calc 41.2 Estimated GFR 27 Random Glucose 290 H Calcium 8.1 L Phosphorus 4.8 H Magnesium 2.1 Troponin I High Sens Albumin 3.8 D Microbiology Microbiology Results: Microbiology 11/19/21 18:42 Blood - Venous Blood Culture - Preliminary No growth after 24 hours. 11/19/21 18:37 Blood - Venous Blood Culture - Preliminary No growth after 24 hours. 11/20/21 03:44 Sputum - Suctioned Gram Stain - Final Progress Note: A&P Assessment and plan (1) Obesity: Status: Acute (2) Hypothyroidism: Status: Acute (3) HTN (hypertension): Status: Acute (4) Diabetes mellitus with insulin therapy: Status: Acute (5) ANDRES (acute kidney injury): Status: Acute (6) Acute exacerbation of congestive heart failure: Status: Acute (7) Pneumonia: Status: Acute (8) Acute respiratory failure with hypoxia: Status: Acute Plan Assessment: 71-year-old lady with underlying obesity, COPD, CHF admitted with acute hypoxic respiratory failure secondary to congestive heart failure exacerbation and possible pneumonia, now requiring ventilatory support. Plan: Neuro: No acute issues. Cardiac: Exacerbation of underlying congestive heart failure, improving with diuresis. 2D echocardiogram is pending. Pulmonary: Acute hypoxic respiratory failure secondary to exacerbation of underlying congestive heart failure with possible pneumonia contribution now requiring ventilatory support. Continue to titrate off ventilatory support as tolerated. Renal: Andres I and CKD likely secondary to CHF exacerbation. Non oliguric. Continue to monitor renal indices and urine output. Endo: No acute issues. Underlying diabetes mellitus. GI: No acute issues. ID: Possible underlying pneumonia, empirically covered with broad-spectrum a ntibiotics. Cultures are pending. Heme/Onc: No acute issues. Psych: No acute issues. Miscellaneous: No acute issues. Prophylaxis: Heparin, ppi Diet: Tube feeds Critical care time spent: 45 minutes Quality Stroke Does the patient have a stroke diagnosis?: No VTE Prior VTE?: No VTE Risk Level:: Medical - moderate - high VTE Device Contraindication: Treatment Not Indicated VTE Drug Contraindication: N/A - Med Ordered
[2021-11-21 11:07] LABS: Glucose, Whole Blood 255 mg/dL (60-115)
[2021-11-21] MEDS: Insulin Lispro 100 UNIT/ML 3 ML VIAL SUBCUT ×2 (11:09→18:00)
[2021-11-21] MEDS: Insulin Glargine,Hum.rec.anlog 100 UNIT/ML 10 ML VIAL 40 UNIT SUBCUT (11:10)
[2021-11-21] MEDS: fentaNYL citrate/NS 1,000 MCG/100 ML PLAST..BAG 10 MCG IVCONT ×2 (11:53→21:01)
[2021-11-21 17:57] LABS: Glucose, Whole Blood 154 mg/dL (60-115)
--- NOTE | 2021-11-21 20:39 | PC.NURSE ---
Pt.'s temp. is 100.4F at this time. Notified Julianna Steele NP. GIFT WRAPPER ordered PRN Tylenol to be used if pt.'s temp. increases to > 101.0F. Will continue to monitor
[2021-11-21 23:13] LABS: Glucose, Whole Blood 98 mg/dL (60-115)
[2021-11-21] MEDS: Acetaminophen Oral Liquid 650 MG/20.3 ML SOLUTION PO (23:13)
--- NOTE | 2021-11-21 23:14 | PC.NURSE ---
Order for PRN Tylenol to administer once temp. > 101.0F. Pt.'s temp. currently at 100.8F. OK per Julianna Stelee NP to administer PRN Tylenol now.
[2021-11-22] VITALS (40 sets, daily range): BP systolic 102–185; BP diastolic 37–74; PULSE 35–117; RESP 16–20; TEMP 34.4–38.6; O2SAT 87–95; BMI 52.6
[2021-11-22] MEDS: Piperacillin Sodium/Tazobactam 4.5 GM in 0.9 % Sodium Chloride 100 ML IV ×4 (00:15→20:10)
[2021-11-22] MEDS: propofoL 1,000 MG/100 ML VIAL 45.66 MG IVCONT ×9 (00:15→20:52)
[2021-11-22 05:14] LABS: VBG Base Excess -1.8 mmol/L; VBG HCO3 22 mmol/L (22-26); VBG pCO2 38 mmHg; VBG pH 7.38 (7.32-7.43); VBG pO2 53 mmHg
[2021-11-22 05:21] LABS: Glucose, Whole Blood 96 mg/dL (60-115)
[2021-11-22 05:30] LABS: Basophils Absolute Auto 0.1 X10*3/uL (0.0-0.2); Basophils Percent Auto 0.5 % (0-2); Eosinophils Absolute Auto 0.9 X10*3/uL (0.0-0.4); Eosinophils Percent Auto 6.1 % (0-4); Hematocrit 28.7 % (37.0-47.0); Hemoglobin 8.8 g/dl (12.0-16.0); Imm Gran Abs Auto 0.22 X10*3/uL (0.00-0.03); Imm Gran Pct Auto 1.5 % (0.0-0.4); Lymphocytes Absolute Auto 1.1 X10*3/uL (1.2-4.9); MANUAL DIFF FLAG SCAN; Mean Corpuscular HGB Conc 30.7 g/dl (31.0-35.0); Mean Corpuscular Volume 84.7 fL (80.0-98.0); Mean Platelet Volume 11.8 fL (9.4-12.3); Monocytes Absolute Auto 1.7 X10*3/uL (0.1-1.2); Monocytes Percent Auto 11.7 % (2-11); NRBC Pct Auto 0.1 /100WBC (0.0-0.2); Neutrophils Absolute Auto 10.3 x10*3/uL (2.0-8.3); Neutrophils Percent Auto 72.2 % (45-73); Platelet Count 208 X10*3/uL (160-400); Red Blood Count 3.39 X10*6/uL (4.20-5.50); Red Cell Distribution Width 17.2 % (11.0-16.0); SCAN SMEAR FLAG 1; White Blood Count 14.3 X10*3/uL (4.8-10.8)
[2021-11-22 05:39] LABS: Venous Blood Gas Refer to POC result
[2021-11-22] MEDS: Pantoprazole Sodium 40 MG/10 ML VIAL IVPUSH (05:50)
[2021-11-22 05:54] LABS: Albumin Level 3.2 g/dL (3.5-5.0); Anion Gap 19 (12-20); Blood Urea Nitrogen 37 mg/dL (9-16); Calcium 7.8 mg/dL (8.4-10.2); Carbon Dioxide 25 mmol/L (22-29); Chloride 102 mmol/L (96-108); Creatinine Clr Calc Pharmacy 27.9; Estimated Glomerular Filt Rate 17; Glucose Random 95 mg/dL (60-115); Magnesium 2.2 mg/dL (1.6-2.6); Phosphorus 5.4 mg/dL (2.7-4.5); Potassium 3.9 mmol/L (3.3-5.1); Sodium 142 mmol/L (135-145)
[2021-11-22 06:09] LABS: SLIDE REVIEW VERIFIED
[2021-11-22] MEDS: fentaNYL citrate/NS 1,000 MCG/100 ML PLAST..BAG 10 MCG IVCONT (06:38)
[2021-11-22] MEDS: Heparin Sodium,Porcine 5,000 UNIT/ML VIAL 5000 UNIT SUBCUT ×3 (07:42→23:29)
[2021-11-22] MEDS: Nystatin Powder 15 GM BOTTLE 1 APPL TOPICAL ×2 (07:45→20:13)
[2021-11-22] MEDS: Chlorhexidine Gluc Oral Rinse 15 ML MOUTHWASH BUCCAL ×3 (07:46→20:13)
[2021-11-22] MEDS: Insulin Glargine,Hum.rec.anlog 100 UNIT/ML 10 ML VIAL 40 UNIT SUBCUT (08:03)
[2021-11-22 08:05] LABS: Glucose, Whole Blood 117 mg/dL (60-115)
--- NOTE | 2021-11-22 10:28 | P.PNCC_ITS ---
Subjective Subjective Date of Service: 11/22/21 Interval History: ICU day 4 for acute hypoxic failure respiratory failure, acute kidney injury, acute on chronic diastolic congestive heart failure, pneumonia. 71-year-old lady with underlying history of COPD, congestive heart failure, d iabetes mellitus, CKD, hypertension, hypothyroidism, peripheral vascular disease, recent admission for COVID-19 approximately 1 months prior admitted on 11/19/2021 with dyspnea and hypoxia. On ER evaluation patient with prominent hypoxia resistant to CPAP support requiring intubation and ventilatory support. CT chest with bilateral pleural effusions with compressive atelectasis. Also noted to have leukocytosis. Patient was started on empiric broad-spectrum antibiotics and diuresis and admitted to intensive care unit. No events overnight. Critical Care Time (minutes): 45 Physical Exam Vital Signs: Vital Signs: Last Vital Signs Temp 100.6 F H 11/22/21 10:00 Pulse 78 11/22/21 10:00 Resp 0 L 11/22/21 10:00 BP 146/53 H 11/22/21 10:00 Pulse Ox 92 11/22/21 10:00 O2 Del Method 11/22/21 10:00 FiO2 40 11/22/21 10:00 BMI result Body Mass Index 52.6 Const: General: no acute distress and other ( sedated on the vent arousable with sedation vacation) Nutritional Appearance: obese and Edematous Eyes: Sclerae: sclerae normal EOM: EOMs intact bilaterally Neck: Neck: Yes no lymphadenopathy, Yes trachea midline and Yes supple Resp: Auscultation: crackles ( bilateral) Cardio: Rate: regular rate Rhythm: regular rhythm Heart sounds: no gallops, no murmurs and no rubs GI: Palpation (GI): Soft to palpation and Other GI palpation findings present ( Nontender) Auscultation: normal bowel sounds Extrem: General: No clubbing, No cyanosis and Yes edema ( 2+ bilateral) Objective Data Labs CBC & Chem 7: 11/22/21 05:03 11/22/21 05:03 Labs: Laboratory Results - last 24 hr 11/21/21 11/21/21 11/21/21 11:02 17:45 23:10 WBC RBC Hgb Hct MCV MCH MCHC RDW Plt Count MPV Immature Gran % (Auto) Neut % (Auto) Lymph % (Auto) [place] % (Auto) Eos % (Auto) Baso % (Auto) Lymph # (Auto) [place] # (Auto) Eos # (Auto) Baso # (Auto) Abs Immat Gran (auto) Absolute Neuts (auto) Absolute Nucleated RBC Nucleated RBC % (auto) Smear Tech's Comments VBG pH VBG pCO2 VBG pO2 VBG HCO3 VBG O2 Saturation VBG Base Excess Sodium Potassium Chloride Carbon Dioxide Anion Gap BUN Creatinine Estim Creat Clear Calc Estimated GFR POC Glucose 255 H 154 H 98 Random Glucose Calcium Phosphorus Magnesium Albumin 11/22/21 11/22/21 11/22/21 05:03 05:03 05:08 WBC 14.3 H RBC 3.39 L Hgb 8.8 L Hct 28.7 L MCV 84.7 MCH 26.0 L MCHC 30.7 L RDW 17.2 H Plt Count 208 MPV 11.8 Immature Gran % (Auto) 1.5 H Neut % (Auto) 72.2 Lymph % (Auto) 8.0 L [place] % (Auto) 11.7 H Eos % (Auto) 6.1 H Baso % (Auto) 0.5 Lymph # (Auto) 1.1 L [place] # (Auto) 1.7 H Eos # (Auto) 0.9 H Baso # (Auto) 0.1 Abs Immat Gran (auto) 0.22 H Absolute Neuts (auto) 10.3 H Absolute Nucleated RBC 0.020 H Nucleated RBC % (auto) 0.1 Smear Tech's Comments VERIFIED VBG pH 7.38 VBG pCO2 38 VBG pO2 53 VBG HCO3 22 VBG O2 Saturation 82.0 VBG Base Excess -1.8 Sodium 142 Potassium 3.9 Chloride 102 Carbon Dioxide 25 Anion Gap 19 BUN 37 H Creatinine 2.70 H Estim Creat Clear Calc 27.9 Estimated GFR 17 POC Glucose Random Glucose 95 Calcium 7.8 L Phosphorus 5.4 H Magnesium 2.2 Albumin 3.2 L 11/22/21 11/22/21 05:14 07:59 WBC RBC Hgb Hct MCV MCH MCHC RDW Plt Count MPV Immature Gran % (Auto) Neut % (Auto) Lymph % (Auto) [place] % (Auto) Eos % (Auto) Baso % (Auto) Lymph # (Auto) [place] # (Auto) Eos # (Auto) Baso # (Auto) Abs Immat Gran (auto) Absolute Neuts (auto) Absolute Nucleated RBC Nucleated RBC % (auto) Smear Tech's Comments VBG pH VBG pCO2 VBG pO2 VBG HCO3 VBG O2 Saturation VBG Base Excess Sodium Potassium Chloride Carbon Dioxide Anion Gap BUN Creatinine Estim Creat Clear Calc Estimated GFR POC Glucose 96 117 H Random Glucose Calcium Phosphorus Magnesium Albumin Microbiology Microbiology Results: Microbiology 11/20/21 03:44 Sputum - Suctioned Gram Stain - Final 11/20/21 03:44 Sputum - Suctioned Sputum Culture - Final 11/19/21 18:42 Blood - Venous Blood Culture - Preliminary No growth after 48 hours. 11/19/21 18:37 Blood - Venous Blood Culture - Preliminary No growth after 48 hours. 11/20/21 Unknown Urine Catheterized - Turner Catheter Urine Culture - Final No growth. Progress Note: A&P Assessment and plan (1) Acute respiratory failure with hypoxia: Status: Acute (2) Pneumonia: Status: Acute (3) Acute exacerbation of congestive heart failure: Status: Acute (4) LEO (acute kidney injury): Status: Acute (5) Obesity: Status: Acute (6) Hypothyroidism: Status: Acute (7) HTN (hypertension): Status: Acute (8) Diabetes mellitus with insulin therapy: Status: Acute Plan Assessment: 71-year-old lady with underlying obesity, COPD, CHF admitted with acute hypoxic respiratory failure secondary to congestive heart failure exacerbation and pneumonia, now requiring ventilatory support. Plan: Neuro: No acute issues. Cardiac: Exacerbation of underlying congestive heart failure, improving with diuresis. 2D echocardiogram with dilated left atrium /diastolic dysfunction. Pulmonary: Acute hypoxic respiratory failure secondary to exacerbation of underlying congestive heart failure and pneumonia contribution now requiring ventilatory support. Continue to titrate off ventilatory support as tolerated. Renal: LEO on CKD likely secondary to CHF exacerbation. Non oliguric. Continue to monitor renal indices and urine output. Endo: No acute issues. Underlying diabetes mellitus. GI: No acute issues. ID: Ppneumonia, empirically covered with broad-spectrum antibiotics. Cultures are pending. Heme/Onc: No acute issues. Psych: No acute issues. Miscellaneous: No acute issues. Prophylaxis: Heparin, ppi Diet: Tube feeds Critical care time spent: 45 minutes Quality Stroke Does the patient have a stroke diagnosis?: No VTE Prior VTE?: No VTE Risk Level:: Medical - moderate - high VTE Device Contraindication: Treatment Not Indicated VTE Drug Contraindication: N/A - Med Ordered
[2021-11-22] MEDS: propofoL 1,000 MG/100 ML VIAL 31.96 MG IVCONT (12:00)
[2021-11-22 12:03] LABS: Glucose, Whole Blood 129 mg/dL (60-115)
--- NOTE | 2021-11-22 16:15 | ECG_ITS ---
Test Reason : confirm rhythm Blood Pressure : / mmHG Vent. Rate : 087 BPM Atrial Rate : 087 BPM P-R Int : 168 ms QRS Dur : 104 ms QT Int : 390 ms P-R-T Axes : 000 093 -11 degrees QTc Int : 469 ms Sinus rhythm with Premature atrial complexes in a pattern of bigeminy Rightward axis Abnormal QRS-T angle, consider primary T wave abnormality Abnormal ECG When compared with ECG of 19-NOV-2021 17:22, Premature atrial complexes are now Present Referred By: Bin Jurado Electronically Signed By:AMANDA RAMIREZ
--- NOTE | 2021-11-22 17:00 | PC.NURSE ---
At start of shift patient intubated on AC. Per Dr. Jurado, plan was to trial PSV. Sedation titrated off. Patient then placed on psv by provider. Patient did not tolerate psv. Blood pressure began increasing. Respiratory effort increased. Patient placed back on AC setting by provider. Intubated with an ET #8. 24 at the lip. Patient placed back on sedation. Pressure support initiated again. Patient has positive cough but no gag reflex. Vital signs as charted.
[2021-11-22 17:31] LABS: Glucose, Whole Blood 159 mg/dL (60-115)
[2021-11-22] MEDS: Acetaminophen Oral Liquid 650 MG/20.3 ML SOLUTION PO (17:31)
[2021-11-22] MEDS: Insulin Lispro 100 UNIT/ML 3 ML VIAL SUBCUT (17:32)
[2021-11-22] MEDS: fentaNYL citrate/NS 1,000 MCG/100 ML PLAST..BAG 7.5 MCG IVCONT (18:29)
[2021-11-23] VITALS (35 sets, daily range): BP systolic 101–155; BP diastolic 37–56; PULSE 66–85; RESP 16–20; TEMP 34.6–38.8; O2SAT 90–94; BMI 54.3
[2021-11-23 00:13] LABS: Glucose, Whole Blood 135 mg/dL (60-115)
[2021-11-23] MEDS: Acetaminophen Oral Liquid 650 MG/20.3 ML SOLUTION PO ×2 (00:13→07:43)
[2021-11-23] MEDS: propofoL 1,000 MG/100 ML VIAL 45.66 MG IVCONT ×7 (01:02→14:00)
[2021-11-23] MEDS: Piperacillin Sodium/Tazobactam 4.5 GM in 0.9 % Sodium Chloride 100 ML IV ×4 (01:04→19:29)
[2021-11-23] MEDS: fentaNYL citrate/NS 1,000 MCG/100 ML PLAST..BAG 10 MCG IVCONT ×2 (03:26→13:05)
[2021-11-23 05:17] LABS: VBG Base Excess -4.6 mmol/L; VBG HCO3 19 mmol/L (22-26); VBG pCO2 33 mmHg; VBG pH 7.37 (7.32-7.43); VBG pO2 47 mmHg
[2021-11-23 05:20] LABS: Basophils Absolute Auto 0.1 X10*3/uL (0.0-0.2); Basophils Percent Auto 0.4 % (0-2); Eosinophils Absolute Auto 0.7 X10*3/uL (0.0-0.4); Eosinophils Percent Auto 4.2 % (0-4); Hematocrit 29.7 % (37.0-47.0); Imm Gran Pct Auto 2.4 % (0.0-0.4); Lymphocytes Absolute Auto 0.9 X10*3/uL (1.2-4.9); Lymphocytes Percent Auto 5.3 % (20-40); MANUAL DIFF FLAG SCAN; Mean Corpuscular HGB Conc 30.3 g/dl (31.0-35.0); Mean Corpuscular Hemoglobin 25.2 pg (27.0-33.0); Mean Corpuscular Volume 83.2 fL (80.0-98.0); Mean Platelet Volume 11.5 fL (9.4-12.3); Monocytes Absolute Auto 1.9 X10*3/uL (0.1-1.2); Monocytes Percent Auto 11.3 % (2-11); Neutrophils Absolute Auto 12.7 x10*3/uL (2.0-8.3); Neutrophils Percent Auto 76.4 % (45-73); Platelet Count 230 X10*3/uL (160-400); Red Blood Count 3.57 X10*6/uL (4.20-5.50); Red Cell Distribution Width 16.5 % (11.0-16.0); SCAN SMEAR FLAG 1; White Blood Count 16.7 X10*3/uL (4.8-10.8)
[2021-11-23 05:46] LABS: Albumin Level 3.2 g/dL (3.5-5.0); Anion Gap 21 (12-20); Blood Urea Nitrogen 46 mg/dL (9-16); Calcium 7.8 mg/dL (8.4-10.2); Carbon Dioxide 23 mmol/L (22-29); Chloride 101 mmol/L (96-108); Creatinine Clr Calc Pharmacy 22.5; Estimated Glomerular Filt Rate 14; Glucose Random 175 mg/dL (60-115); Magnesium 2.3 mg/dL (1.6-2.6); Potassium 4.4 mmol/L (3.3-5.1); Sodium 141 mmol/L (135-145)
[2021-11-23 05:50] LABS: SLIDE REVIEW VERIFIED
[2021-11-23] MEDS: Pantoprazole Sodium 40 MG/10 ML VIAL IVPUSH (05:54)
[2021-11-23 06:22] LABS: Glucose, Whole Blood 153 mg/dL (60-115)
[2021-11-23 06:22] LABS: Venous Blood Gas Refer to POC result
[2021-11-23] MEDS: Insulin Lispro 100 UNIT/ML 3 ML VIAL SUBCUT ×3 (06:38→18:20)
[2021-11-23] MEDS: Heparin Sodium,Porcine 5,000 UNIT/ML VIAL 5000 UNIT SUBCUT ×3 (07:20→22:20)
[2021-11-23] MEDS: Insulin Glargine,Hum.rec.anlog 100 UNIT/ML 10 ML VIAL 40 UNIT SUBCUT (07:35)
[2021-11-23] MEDS: Chlorhexidine Gluc Oral Rinse 15 ML MOUTHWASH BUCCAL ×3 (07:35→19:29)
[2021-11-23] MEDS: Nystatin Powder 15 GM BOTTLE 1 APPL TOPICAL ×2 (07:36→19:34)
[2021-11-23] MEDS: Lactulose 20 GM/30 ML SOLUTION 30 GM PO (10:44)
[2021-11-23 10:51] LABS: Sodium Urine Random < 20.0 mmol/L
--- NOTE | 2021-11-23 11:25 | MHC.CLN ---
F/U PT IS INTUBATED AND SEDATED. TUBE FEED PROMOTE AT MAX GOAL RATE 25ML/HR WITH 30ML PROSOURCE BID. PROVIDES 600KCALS (1925 KCALS WITH SEDATION; 33.8 KCALS/KG IBW), 67.5 G PROTEIN TOTAL (1.2 G/KG IBW), 503 ML FREE WATER FROM FORMULA. MONITOR TOLERANCE, RESIDUALS, AND LYTES.
[2021-11-23 11:34] LABS: Glucose, Whole Blood 172 mg/dL (60-115)
[2021-11-23] MEDS: propofoL 1,000 MG/100 ML VIAL 36.53 MG IVCONT ×4 (15:37→22:55)
--- NOTE | 2021-11-23 15:52 | PM.CCPN ---
Subjective Subjective Date of Service: 11/23/21 Interval History: Mrs. Toney was admitted to ICU on November 19 with acute respiratory failure. The patient is a 71-year-old female with the following past medical history: Supermorbid obesity (5?5?, 148kg) DM on insulin HLD HTN CKD - baseline 20/1.4 Hypothyroidism Lower extremity edema Migraine Pseudotumor cerebri PVD She is not normally on oxygen at home.? There is no prior h/o COPD or CHF.? There are no previous blood gases in the chart, but her serum bicarb levels run borderline high. ?Prior echo in 2015 was technically difficult, showed normal LV size and systolic function; the right ventricle was unable to be visualized; there was mild to moderate mitral stenosis. S/P COVID:? On October 08, 2021, the patient was [place] [facility] severe [place]cemia.? Sat was 98% on 2 L.? COVID DENY was negative.? Chest CT showed mild chronic interstitial disease with no evidence of pneumonia.? She had significant mediastinal lymphadenopathy the largest node in the para carinal area measuring 3 cm.? She also had large axillary lymph nodes, the largest 1 on the right measuring 2 cm. Because a household member tested positive for COVID, the patient was retested on October 10 and COVID DENY was positive.? At that time, sat was 97% on 4 L nasal cannula.? She was treated with 5 days of remdesivir and 6 days of dexamethasone.? She was discharged to home on October 16 on 3L NC oxygen and four more days of dexamethasone.? She has been using the oxygen at home since then. According to the family, the patient has always been one to stay at home, rarely left the house.? She has not driven a car in many years.? She currently lives in her own home and a daughter and a couple of grandsons live with her.? She is independent with her ADLs and mostly walks unaided but sometimes uses a walker.? She spends most of the day in an easy chair and sleeps in the chair also. MEDS at home included amlodipine, insulin, aspirin, Lasix 40 mg bid, thyroid, and Januvia, along with amitriptyline, Librium, citalopram, and clonazepam. HISTORY OF PRESENT ILLNESS: On November 19, she was BIBA to the ED with a one day h/o progressive SOB.? On arrival to the emergency room, the patient was barely conscious, in respiratory distress.? The patient was intubated immediately.? She was not hypotensive, and sat was up to 100% on 40% FiO2 on the ventilator. ?White count was 16, hemoglobin was 10, D-dimer was 578, BUN creatinine were 20/1.2, bicarb is 23, glucose 199, LFTs were normal, BNP was 304, troponin was 21 with follow-up 48, albumin was 3.2, TSH was 1.8, lactic acid was 1.8.? COVID DENY was negative. Chest x-ray showed low lung volumes with diffuse bilateral patchy infiltrates, with bilateral effusions.? CTPA showed no pulmonary emboli.? There was occlusion of the left lower lobe bronchus with near complete consolidation of the left lower lobe, along with significant lingula and right lower lobe and right middle lobe consolidation.? There were moderate right and small left pleural effusions.? The heart was enlarged.? There was significant mediastinal lymphadenopathy.? On abdominal CT, the kidneys were normal.? WOODWORKING MACHINE OFFBEARER shunt tubing was noted to terminate in the lower quadrant.? Prominent retroperitoneal lymph nodes and prominent right inguinal lymph nodes measuring up to 4.5 cm. Patient was started on empiric broad-spectrum antibiotics and admitted to the ICU. ?Presumptive diagnoses included possible pneumonia and CHF.? She was diuresed with a Lasix drip for one day, and continued on Zosyn.? Blood cultures were negative; sputum Gram stain showed 3+ polys with light Gram-positive cocci and yeast; the culture grew mixed respiratory maggie. Echocardiogram on November 20 was technically difficult.? LV cavity size was normal with mild LVH.? LV function was hyperdynamic, with EF greater than 70%.? RV cavity size was mildly increased with borderline RV systolic function.? The left atrium was severely dilated; the right atrium was normal.? There was mild and mild MR.? The TR envelope was inadequate for calculation of RVSP.? The IVC was dilated with no inspiratory collapse. On exam today, she is well sedated on propofol 40ug and Fentanyl 50ug.? Also on Levophed 0.05ug.? HR 70, SR.? BP 126/46.? On AC 20/340/40%/+5, RR is 20, Ve 6.7L, PIP 33cm, ETCO2 42mm, Sat 93%.? CVBG this morning 7.37/33/-4.? Tmax 101.8?.? No JVD.? Chest had a very slight faint exp wheeze, with normal exp phase.? Heart tones are soft, I heard no murmur or gallops.? The abdomen is obese and benign.? She has about 1+ pretibial edema; it?s impossible to gauge central edema. LABORATORY DATA:? Below.? Notably, white count has been holding fairly steady in the 14-16 range.? Hemoglobin is down to 9.0, BUN/creatinine have been rising steadily, now up to 46/3.3, phosphorus is 7.0, POCs are in the 150-170 range.? Urine Na was < 20. IMPRESSION: 1. Underlying super morbid obesity 2. Possible underlying obesity hypoventilation syndrome, with chronic hypercarbia.. 3. Bilat, multilobar collapse or consolidation, of undetermined etiology.? Not likely pneumonia -- a pneumonia to this degree of consolidation would likely cause much, much more severe hypoxemia.? Furthermore, there was no anticedant h/o toxicity or fever.? Will repeat her CT. 4. Acute respiratory failure.? Likely 2? to above multilobar collapse.? At this time, I see no relation to her COVID episode. 5. ? CHF, based on her CXR and BNP.? If she has CHF, it?s likely diastolic ddx, not systolic, based on the echo.? But I think that diuresis will just make her renal indices rise further. 6. Probable right heart failure, based on her size and the echo.? Furthermore, the urine Na and the rising renal indices suggest cardiorenal syndrome.? I will trial a bolus of LR to see if that improves her renal indices. 7. Underlying CKD.? Possibly 2? RHF. 8. Acute kidney injury.? Possibly 2? RHF/cardiorneal syndrome.? Trial fluid bolus. 9. Underlying DM.? Glucose levels under good control with Lantus and sliding scale insulin. 10. ID:? Evidence of pneumonia is lacking.? I will d/c the Zosyn. 11. Mediastinal, axillary, abdominal, and ?lymphadenopathy.? Could be due to underlying lymphoma/lymphoproliferative process or metastatic disease. ?I will consult oncology. 12. Nutrition.? On Nepro. I spoke with the patient?s lisa Gomez, the [facility]/defacto HCP, at some length at the bedside about her condition and treatment. Critical care time (including full chart review, hospital course summary, d/w Dr. Jurado, and extensive consultation with Dr. Molina from renal; excluding procedures):? 2 hrs. Critical Care Time (minutes): 120 Physical Exam Vital Signs: Vital Signs: Last Vital Signs Temp 100 F 11/23/21 15:00 Pulse 68 11/23/21 15:00 Resp 20 11/23/21 15:00 BP 122/47 L 11/23/21 15:00 Pulse Ox 93 11/23/21 15:00 O2 Del Method 11/23/21 15:00 FiO2 40 11/23/21 15:18 BMI result Body Mass Index 54.3 Objective Data Labs CBC & Chem 7: 11/23/21 05:05 11/23/21 05:05 Labs: Laboratory Results - last 24 hr 11/22/21 11/23/21 11/23/21 17:27 00:08 05:05 WBC 16.7 H RBC 3.57 L Hgb 9.0 L Hct 29.7 L MCV 83.2 MCH 25.2 L MCHC 30.3 L RDW 16.5 H Plt Count 230 MPV 11.5 Immature Gran % (Auto) 2.4 H Neut % (Auto) 76.4 H Lymph % (Auto) 5.3 L [place] % (Auto) 11.3 H Eos % (Auto) 4.2 H Baso % (Auto) 0.4 Lymph # (Auto) 0.9 L [place] # (Auto) 1.9 H Eos # (Auto) 0.7 H Baso # (Auto) 0.1 Abs Immat Gran (auto) 0.40 H Absolute Neuts (auto) 12.7 H Absolute Nucleated RBC 0.000 Nucleated RBC % (auto) 0.0 Smear Tech's Comments VERIFIED VBG pH VBG pCO2 VBG pO2 VBG HCO3 VBG O2 Saturation VBG Base Excess Sodium Potassium Chloride Carbon Dioxide Anion Gap BUN Creatinine Estim Creat Clear Calc Estimated GFR POC Glucose 159 H 135 H Random Glucose Calcium Phosphorus Magnesium Albumin Ur Random Sodium 11/23/21 11/23/21 11/23/21 05:05 05:12 06:18 WBC RBC Hgb Hct MCV MCH MCHC RDW Plt Count MPV Immature Gran % (Auto) Neut % (Auto) Lymph % (Auto) [place] % (Auto) Eos % (Auto) Baso % (Auto) Lymph # (Auto) [place] # (Auto) Eos # (Auto) Baso # (Auto) Abs Immat Gran (auto) Absolute Neuts (auto) Absolute Nucleated RBC Nucleated RBC % (auto) Smear Tech's Comments VBG pH 7.37 VBG pCO2 33 VBG pO2 47 VBG HCO3 19 L VBG O2 Saturation 78.0 VBG Base Excess -4.6 Sodium 141 Potassium 4.4 Chloride 101 Carbon Dioxide 23 Anion Gap 21 H BUN 46 H Creatinine 3.35 H Estim Creat Clear Calc 22.5 Estimated GFR 14 POC Glucose 153 H Random Glucose 175 H Calcium 7.8 L Phosphorus 7.0 H Magnesium 2.3 Albumin 3.2 L Ur Random Sodium 11/23/21 11/23/21 10:25 11:31 WBC RBC Hgb Hct MCV MCH MCHC RDW Plt Count MPV Immature Gran % (Auto) Neut % (Auto) Lymph % (Auto) [place] % (Auto) Eos % (Auto) Baso % (Auto) Lymph # (Auto) [place] # (Auto) Eos # (Auto) Baso # (Auto) Abs Immat Gran (auto) Absolute Neuts (auto) Absolute Nucleated RBC Nucleated RBC % (auto) Smear Tech's Comments VBG pH VBG pCO2 VBG pO2 VBG HCO3 VBG O2 Saturation VBG Base Excess Sodium Potassium Chloride Carbon Dioxide Anion Gap BUN Creatinine Estim Creat Clear Calc Estimated GFR POC Glucose 172 H Random Glucose Calcium Phosphorus Magnesium Albumin Ur Random Sodium < 20.0 Microbiology Microbiology Results: Microbiology 11/20/21 03:44 Sputum - Suctioned Gram Stain - Final 11/20/21 03:44 Sputum - Suctioned Sputum Culture - Final 11/19/21 18:42 Blood - Venous Blood Culture - Preliminary No growth after 48 hours. 11/19/21 18:37 Blood - Venous Blood Culture - Preliminary No growth after 48 hours. 11/20/21 Unknown Urine Catheterized - Turner Catheter Urine Culture - Final No growth. Quality Stroke Does the patient have a stroke diagnosis?: No VTE Prior VTE?: No VTE Risk Level:: Medical - moderate - high VTE Device Contraindication: Treatment Not Indicated VTE Drug Contraindication: N/A - Med Ordered Critical Care Time Critical Care Time (minutes): 120
[2021-11-23 15:58] LABS: Appearance Urine Clear; Color Urine Yellow; Glucose Urine UA Negative (Negative); Leukocyte Esterase Urine Negative (Negative); Nitrite Urine Negative (Negative); Specific Gravity - Urine 1.025 (1.005-1.025); Urine Blood Negative (Negative); Urine Ketones Negative (Negative); Urine Protein 30 (1+) mg/dL (Neg-Trace)
[2021-11-23 16:18] LABS: Creatinine Urine 86.51 mg/dL; Sodium Urine Random < 20.0 mmol/L
[2021-11-23 16:28] LABS: Bacteria Urine None Seen (None Seen); RBC Urine 0-2 /HPF (0-2); WBC Urine 0-5 /HPF (0-5)
[2021-11-23 18:21] LABS: Glucose, Whole Blood 166 mg/dL (60-115)
--- NOTE | 2021-11-23 20:29 | W.PM.CCHP ---
Procedures Date of Service Date of Service: 11/23/21 Bronchoscopy Bronchoscopy Comments: PROCEDURE NOTE:? Fiberoptic bronchoscopy INDICATIONS:? Multilobar collapse of unclear etiology, with acute respiratory failure. ANESTHESIA:? Propofol and fentanyl sedation, plus bolus fentanyl. PROCEDURE:? The bronchoscope was introduced without incident.? Inspection was carried out down to the level of the segmental bronchi.? The entire bronchial tree was clean except for a small amount of thin clear secretions. There was no erythema or purulence.? No endobronchial lesions or other phenomena that might cause bronchial obstruction and lobar collapse was found. The procedure was terminated without incident. The patient tolerated the procedure well without complications.
[2021-11-23] MEDS: Lactated Ringers 1,000 ML 500 ML IV (22:20)
[2021-11-24] VITALS (36 sets, daily range): BP systolic 109–169; BP diastolic 33–66; PULSE 68–91; RESP 16–20; TEMP 34.5–38; O2SAT 92–95; BMI 53.8
[2021-11-24 00:12] LABS: Glucose, Whole Blood 128 mg/dL (60-115)
[2021-11-24] MEDS: Albuterol/Iprat 2.5/0.5MG 3 ML AMPUL.NEB INHALE ×7 (00:12→22:49)
[2021-11-24] MEDS: propofoL 1,000 MG/100 ML VIAL 36.53 MG IVCONT ×3 (01:21→06:24)
[2021-11-24] MEDS: fentaNYL citrate/NS 1,000 MCG/100 ML PLAST..BAG 5 MCG IVCONT ×2 (04:07→23:00)
[2021-11-24 04:58] LABS: Sodium Urine Random < 20.0 mmol/L
[2021-11-24 05:24] LABS: VBG Base Excess -7.8 mmol/L; VBG HCO3 18 mmol/L (22-26); VBG pCO2 37 mmHg; VBG pH 7.28 (7.32-7.43); VBG pO2 59 mmHg
[2021-11-24 05:36] LABS: Hematocrit 30.5 % (37.0-47.0); Hemoglobin 9.1 g/dl (12.0-16.0); Mean Corpuscular HGB Conc 29.8 g/dl (31.0-35.0); Mean Corpuscular Hemoglobin 24.8 pg (27.0-33.0); Mean Corpuscular Volume 83.1 fL (80.0-98.0); Mean Platelet Volume 11.4 fL (9.4-12.3); Platelet Count 230 X10*3/uL (160-400); Red Blood Count 3.67 X10*6/uL (4.20-5.50); Red Cell Distribution Width 16.7 % (11.0-16.0)
[2021-11-24 05:40] LABS: White Blood Count 30.1 X10*3/uL (4.8-10.8)
[2021-11-24 05:54] LABS: Glucose, Whole Blood 215 mg/dL (60-115)
[2021-11-24 05:54] LABS: Anion Gap 21 (12-20); Blood Urea Nitrogen 50 mg/dL (9-16); Calcium 7.8 mg/dL (8.4-10.2); Carbon Dioxide 21 mmol/L (22-29); Chloride 102 mmol/L (96-108); Creatinine Clr Calc Pharmacy 24.8; Estimated Glomerular Filt Rate 15; Glucose Random 224 mg/dL (60-115); Phosphorus 8.3 mg/dL (2.7-4.5); Potassium 4.2 mmol/L (3.3-5.1); Sodium 140 mmol/L (135-145)
[2021-11-24 05:55] LABS: B Type Natriuretic Peptide 644 pg/mL (<100)
[2021-11-24] MEDS: Insulin Lispro 100 UNIT/ML 3 ML VIAL SUBCUT ×3 (06:25→23:55)
[2021-11-24 07:06] LABS: Venous Blood Gas Refer to POC result
[2021-11-24] MEDS: Heparin Sodium,Porcine 5,000 UNIT/ML VIAL 5000 UNIT SUBCUT ×3 (07:33→22:59)
[2021-11-24] MEDS: Sodium Bicarbonate 8.4% 50 MEQ/50 ML SYRINGE 100 MEQ IVPUSH (07:34)
[2021-11-24] MEDS: Chlorhexidine Gluc Oral Rinse 15 ML MOUTHWASH BUCCAL ×3 (07:42→21:18)
[2021-11-24] MEDS: Insulin Glargine,Hum.rec.anlog 100 UNIT/ML 10 ML VIAL 40 UNIT SUBCUT (07:43)
[2021-11-24] MEDS: Nystatin Powder 15 GM BOTTLE 1 APPL TOPICAL ×2 (07:45→21:19)
--- NOTE | 2021-11-24 10:48 | CONS_ITS ---
DATE OF SERVICE: 11/23/2021 REASON FOR CONSULTATION: I was asked to see the patient to assist in evaluation and management of patient's oliguric acute kidney injury in the setting of sepsis and respiratory failure. HISTORY OF PRESENT ILLNESS: In summary, she is a 71-year-old female with COPD, congestive heart failure, diabetes, stage 3 chronic kidney disease, baseline creatinine 1.4 to 1.7, hypothyroidism, peripheral vascular disease. Recent admission for COVID-19 about a month ago, who was admitted now on the with increasing dyspnea and hypoxemia and required intubation for hypoxic respiratory failure. As part of workup, she had a CT chest with contrast to rule out pulmonary embolism, was noted to have bilateral pleural effusions and some atelectasis. Her hospital course included broad-spectrum antibiotics as well as a Lasix drip. Her urine output is decreased and she has developed relatively severe acute kidney injury, the creatinine now up to 3.35. PAST MEDICAL HISTORY: As mentioned, also includes diabetes, requiring insulin, hypertension, hyperlipidemia, hypothyroidism, chronic leg edema, migraines, obesity, pseudotumor cerebri, peripheral vascular disease, COVID a month ago, congestive heart failure, and stage 3 chronic kidney disease as mentioned. MEDICATIONS: Her medications on admission listed in the electronic medical record. Current medications are noted in the MAR. ALLERGIES: SHE HAS ALLERGIES TO OXYCODONE. SOCIAL HISTORY: Unable to obtain. FAMILY HISTORY: Unable to obtain. REVIEW OF SYSTEMS: Likewise unobtainable. PHYSICAL EXAMINATION: VITAL SIGNS: Blood pressure 120/50. As mentioned, urine output has been decreasing. Yesterday, she 305 cc in 24 hours. She is on the ventilator. Breath sounds bilaterally. Morbidly obese. LUNGS: Decreased at the bases with some rhonchi. CARDIAC: Regular rate. ABDOMEN: Soft. EXTREMITIES: Shows 1+ edema bilaterally. LABORATORY DATA: Show hemoglobin 9, hematocrit 29.7, white blood cells 16.7, platelet count 230. Sodium 141, potassium 4.4, chloride 101, bicarb 23, BUN 46, creatinine 3.35, calcium 7.8, phos 7.0, albumin 3.2. Her creatinine on admission was 1.32. As mentioned, her baseline creatinine seems to run in the 1.4 to 1.7 range. The only urine studies I can see is a urine sodium of less than 20. IMPRESSION: A 71-YEAR-OLD WITH MULTIPLE CHRONIC MEDICAL PROBLEMS, ADMITTED WITH HYPOXIC RESPIRATORY FAILURE, REQUIRING INTUBATION, NOW WITH ACUTE KIDNEY INJURY ON CHRONIC KIDNEY DISEASE. 1. Oliguric acute kidney injury. Most consistent with multifactorial acute tubular necrosis. Unfortunately, the poor urine output along with a critical state makes her at high risk for further worsening of renal function at the point of needing dialysis. I do not think, she needs dialysis today, but in the next 24 to 48 hours, she is likely to need renal replacement therapy. 2. Stage 3 chronic kidney disease. 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 3. Hypoxic respiratory failure. Presently due to pneumonia. 4. Hypokalemia. She is not tolerating the Lasix drip and could consider increased dose of diuretics to try negative fluid balance. SUGGESTIONS: At this time, include obtaining a urinalysis, spot urine studies. Consider giving IV albumin as well as increase in the Lasix. Avoid nephrotoxins. Start her on a phosphate binder for hyperphosphatemia. Avoid nephrotoxins. Of note, patient did get IV contrast with a CTA on admission and this certainly could be playing a contributing role with her acute kidney injury in terms of the dye causing further tubular toxicity. We will follow the patient with the team. MD WENDY Mitchell/ARYA / [id number]
[2021-11-24 11:46] LABS: Glucose, Whole Blood 204 mg/dL (60-115)
--- NOTE | 2021-11-24 13:07 | MHC.CLN ---
F/U PT IS INTUBATED AND SEDATED. DISCUSSED WITH MD AT ROUNDS. LABS REVIEWED. CHANGING TUBE FEED FORMULA TO NEPRO. TUBE FEED NEPRO AT MAX GOAL RATE 10ML/HR WITH 30ML PROSOURCE BID. PROVIDES 432+120 KCALS (1516 KCALS WITH SEDATION; 25.6 KCALS/KG IBW), 49 G PROTEIN TOTAL (.86 G/KG IBW), 175 ML FREE WATER FROM FORMULA. MONITOR TOLERANCE, RESIDUALS, AND LYTES.
--- NOTE | 2021-11-24 13:56 | PM.PNNEP ---
Subjective Subjective Date of Service: 11/24/21 Interval history: Seen and examined, events noted Cont on vent UOP boderline Physical Exam Vital Signs: Vital Signs: Last Vital Signs Temp 100.2 F 11/24/21 13:00 Pulse 78 11/24/21 13:00 Resp 20 11/24/21 13:00 BP 145/50 H 11/24/21 13:00 Pulse Ox 94 11/24/21 13:00 O2 Del Method 11/24/21 13:00 FiO2 55 11/24/21 13:00 BMI result Body Mass Index 53.8 Const: Other: Appearance: Lethargic, barely arousable Eyes: Pupils equal, round and reactive to light. ENT: Pharynx normal. Neck: Normal inspection. Neck supple. No lymph nodes noted. No crepitus CVS: Normal heart rate and rhythm. Pulses normal. Normal S1 and S2 Respiratory: In severe respiratory distress, mild wheezing, barely audible breath sounds Abdomen: Soft and nontender. No rigidity. No distention. Skin: Skin warm and dry. Normal skin color. Normal skin turgor. Extremities: No lower extremity edema. No Lacerations. No Rash Neuro: Very lethargic, unable to participate in cranial nerve assessment Psych: Lethargic General: no acute distress and other ( sedated on the vent arousable with sedation vacation) Nutritional Appearance: obese and Edematous Eyes: Sclerae: sclerae normal EOM: EOMs intact bilaterally Neck: Neck: Yes no lymphadenopathy, Yes trachea midline and Yes supple Resp: Auscultation: crackles ( bilateral) Cardio: Rate: regular rate Rhythm: regular rhythm Heart sounds: no gallops, no murmurs and no rubs GI: Palpation (GI): Soft to palpation and Other GI palpation findings present ( Nontender) Auscultation: normal bowel sounds Extrem: General: Yes no pedal edema, No clubbing, No cyanosis and Yes edema ( 2+ bilateral) Objective Data Labs CBC & Chem 7: 11/24/21 05:14 11/24/21 05:14 Labs: Laboratory Results - last 24 hr 11/23/21 11/23/21 11/23/21 15:41 15:41 18:18 WBC RBC Hgb Hct MCV MCH MCHC RDW Plt Count MPV Absolute Nucleated RBC Nucleated RBC % (auto) VBG pH VBG pCO2 VBG pO2 VBG HCO3 VBG O2 Saturation VBG Base Excess Sodium Potassium Chloride Carbon Dioxide Anion Gap BUN Creatinine Estim Creat Clear Calc Estimated GFR POC Glucose 166 H Random Glucose Calcium Phosphorus C-Reactive Protein B-Natriuretic Peptide Urine Color Yellow Urine Appearance Clear Urine pH 5.0 Ur Specific [place] 1.025 Urine Protein 30 (1+) H Urine Glucose (UA) Negative Urine Ketones Negative Urine Blood Negative Urine Nitrite Negative Ur Leukocyte Esterase Negative Urine RBC 0-2 Urine WBC 0-5 Ur Squamous Epith Cells 3-5 Urine Bacteria None Seen Hyaline Casts 6-10 Ur Random Sodium < 20.0 Urine Creatinine 86.51 11/24/21 11/24/21 11/24/21 00:08 04:40 05:14 WBC 30.1 H* RBC 3.67 L Hgb 9.1 L Hct 30.5 L MCV 83.1 MCH 24.8 L MCHC 29.8 L RDW 16.7 H Plt Count 230 MPV 11.4 Absolute Nucleated RBC 0.000 Nucleated RBC % (auto) 0.0 VBG pH VBG pCO2 VBG pO2 VBG HCO3 VBG O2 Saturation VBG Base Excess Sodium Potassium Chloride Carbon Dioxide Anion Gap BUN Creatinine Estim Creat Clear Calc Estimated GFR POC Glucose 128 H Random Glucose Calcium Phosphorus C-Reactive Protein B-Natriuretic Peptide Urine Color Urine Appearance Urine pH Ur Specific [place] Urine Protein Urine Glucose (UA) Urine Ketones Urine Blood Urine Nitrite Ur Leukocyte Esterase Urine RBC Urine WBC Ur Squamous Epith Cells Urine Bacteria Hyaline Casts Ur Random Sodium < 20.0 Urine Creatinine 11/24/21 11/24/21 11/24/21 05:14 05:14 05:14 WBC RBC Hgb Hct MCV MCH MCHC RDW Plt Count MPV Absolute Nucleated RBC Nucleated RBC % (auto) VBG pH VBG pCO2 VBG pO2 VBG HCO3 VBG O2 Saturation VBG Base Excess Sodium 140 Potassium 4.2 Chloride 102 Carbon Dioxide 21 L Anion Gap 21 H BUN 50 H Creatinine 3.10 H Estim Creat Clear Calc 24.8 Estimated GFR 15 POC Glucose Random Glucose 224 H Calcium 7.8 L Phosphorus 8.3 H C-Reactive Protein 11.10 H B-Natriuretic Peptide 644 H Urine Color Urine Appearance Urine pH Ur Specific [place] Urine Protein Urine Glucose (UA) Urine Ketones Urine Blood Urine Nitrite Ur Leukocyte Esterase Urine RBC Urine WBC Ur Squamous Epith Cells Urine Bacteria Hyaline Casts Ur Random Sodium Urine Creatinine 11/24/21 11/24/21 11/24/21 05:19 05:50 11:43 WBC RBC Hgb Hct MCV MCH MCHC RDW Plt Count MPV Absolute Nucleated RBC Nucleated RBC % (auto) VBG pH 7.28 L VBG pCO2 37 VBG pO2 59 VBG HCO3 18 L VBG O2 Saturation 86.0 VBG Base Excess -7.8 Sodium Potassium Chloride Carbon Dioxide Anion Gap BUN Creatinine Estim Creat Clear Calc Estimated GFR POC Glucose 215 H 204 H Random Glucose Calcium Phosphorus C-Reactive Protein B-Natriuretic Peptide Urine Color Urine Appearance Urine pH Ur Specific [place] Urine Protein Urine Glucose (UA) Urine Ketones Urine Blood Urine Nitrite Ur Leukocyte Esterase Urine RBC Urine WBC Ur Squamous Epith Cells Urine Bacteria Hyaline Casts Ur Random Sodium Urine Creatinine Microbiology Microbiology Results: Microbiology 11/20/21 03:44 Sputum - Suctioned Gram Stain - Final 11/20/21 03:44 Sputum - Suctioned Sputum Culture - Final 11/19/21 18:42 Blood - Venous Blood Culture - Preliminary No growth after 48 hours. 11/19/21 18:37 Blood - Venous Blood Culture - Preliminary No growth after 48 hours. 11/20/21 Unknown Urine Catheterized - Turner Catheter Urine Culture - Final No growth. Procedures Date of Service Date of Service: 11/24/21 Assessment & Plan Assessment and plan (1) Acute respiratory failure with hypoxia: Status: Acute (2) Pneumonia: Status: Acute (3) Acute exacerbation of congestive heart failure: Status: Acute (4) LEO (acute kidney injury): Status: Acute (5) Obesity: Status: Acute (6) Hypothyroidism: Status: Acute (7) HTN (hypertension): Status: Acute (8) Diabetes mellitus with insulin therapy: Status: Acute Plan 1. OLiguric--> Non-Oliguric LEO: c/w multifact ATN depeite FENa < 1%; SCr stable and incr UOP and so can hold of on OPERATIONS SCHEDULER 2. CKD 3: BL SCr 1.4-1.7 3. Hypoxic Resp fauilure; Pneumonia >> CHF REC: cont lasix drip; no idication for OPERATIONS SCHEDULER yet; track renal func and UOP; avoid NToxins Time Spent With Patient Time: Total time spent is greater than 50% in coordination of care (as documented) at patient's floor/unit and/or counseling patient: Progress Note: Quality Stroke Does the patient have a stroke diagnosis?: No
[2021-11-24] MEDS: propofoL 1,000 MG/100 ML VIAL 27.4 MG IVCONT ×4 (14:00→22:59)
[2021-11-24 17:26] LABS: Glucose, Whole Blood 112 mg/dL (60-115)
--- NOTE | 2021-11-24 19:48 | PM.CCPN ---
Subjective Subjective Date of Service: 11/24/21 Interval History: Mrs. Toney was admitted to ICU on November 19 with acute respiratory failure. The patient is a 71-year-old female with the following past medical history: Supermorbid obesity (5?5?, 148kg) DM on insulin HLD HTN CKD - baseline 20/1.4 Hypothyroidism Lower extremity edema Migraine Pseudotumor cerebri PVD She is not normally on oxygen at home.? There is no prior h/o COPD or CHF.? There are no previous blood gases in the chart, but her serum bicarb levels run borderline high.? Prior echo in 2015 was technically difficult, showed normal LV size and systolic function; the right ventricle was unable to be visualized; there was mild to moderate mitral stenosis. S/P COVID:? On October 08, 2021, the patient was admitted to [facility] bec of severe hypoglycemia.? Sat was 98% on 2 L.? COVID DENY was negative.? Chest CT showed mild chronic interstitial disease with no evidence of pneumonia.? She had significant mediastinal lymphadenopathy the largest node in the paracarinal area measuring 3 cm.? She also had large axillary lymph nodes, the largest one on the right measuring 2 cm. Because a household member tested positive for COVID, the patient was retested on October 10 and COVID DENY was positive.? At that time, sat was 97% on 4 L nasal cannula.? She was treated with 5 days of remdesivir and 6 days of dexamethasone.? She was discharged to home on October 16 on 3L NC oxygen and four more days of dexamethasone.? She had been using the oxygen at home since then. Functional status:? According to the family, the patient has always been one to stay at home, rarely left the house.? She has not driven a car in many years.? She currently lives in her own home and a daughter and a couple of grandsons live with her.? She is independent with her ADLs and mostly walks unaided but sometimes uses a walker.? She spends most of the day in an easy chair and sleeps in the chair also. MEDS at home included amlodipine, insulin, aspirin, Lasix 40 mg bid, thyroid, and Januvia, along with amitriptyline, Librium, citalopram, and clonazepam. HISTORY OF PRESENT ILLNESS: On [place] 18th, she was BIBA to the ED with a one day h/o progressive SOB.? On arrival to the emergency room, the patient was barely conscious, in respiratory distress.? The patient was intubated immediately.? She was not hypotensive, and sat was up to 100% on 40% FiO2 on the ventilator.? White count was 16, hemoglobin was 10, D-dimer was 578, BUN creatinine were 20/1.2, bicarb is 23, glucose 199, LFTs were normal, BNP was 304, troponin was 21 with follow-up 48, albumin was 3.2, TSH was 1.8, lactic acid was 1.8.? COVID DENY was negative. Chest x-ray showed low lung volumes with diffuse bilateral patchy infiltrates, with bilateral effusions.? CTPA showed no pulmonary emboli.? There was occlusion of the left lower lobe bronchus with near complete consolidation of the left lower lobe, along with significant lingula and right lower lobe and right middle lobe consolidation.? There were moderate right and small left pleural effusions.? The heart was enlarged.? There was significant mediastinal lymphadenopathy.? On abdominal CT, the kidneys were normal.? RECREATION FACILITY ATTENDANT shunt tubing was noted to terminate in the lower quadrant.? Prominent retroperitoneal lymph nodes and prominent right inguinal lymph nodes measuring up to 4.5 cm. The patient was started on empiric broad-spectrum antibiotics and admitted to the ICU.? Presumptive diagnoses included possible pneumonia and CHF.? She was diuresed with a Lasix drip for one day, and continued on Zosyn.? Blood cultures were negative; sputum Gram stain showed 3+ polys with light Gram-positive cocci and yeast; the culture grew mixed respiratory maggie. Echocardiogram on November 20 was technically difficult.? LV cavity size was normal with mild LVH.? LV function was hyperdynamic, with EF greater than 70%.? RV cavity size was mildly increased with borderline RV systolic function.? The left atrium was severely dilated; the right atrium was normal.? There was mild and mild MR.? The TR envelope was inadequate for calculation of RVSP.? The IVC was dilated with no inspiratory collapse. Yesterday I repeated her chest CT.? It showed moderate bilateral pleural effusions, right larger than left, similar to the prior CT.? The entire left lower lobe and lingula were completely opacified, and there was partial opacification of the right middle and lower lobes and posterior upper lobes.? Because of the question of lobar collapse, patient underwent bronchoscopy last night, which was completely normal:? The entire bronchial tree was clean except for a small amount of thin clear secretions.? There was no erythema or purulence.? There was no tracheobronchitis. ?No endobronchial lesions or other phenomena that might cause bronchial obstruction and lobar collapse was found.? Because of the lack of any evidence of infection on bronchoscopy, antibiotics were discontinued last night In view of her low urine Na yesterday, overnight, I gave her a liter of IVF.? I reviewed the patient's CT scan in radiology with Dr. Gandara this morning.? In his opinion, the scan is compatible with aspiration.? The only problem is that aspiration or pneumonia causing this extent of bilat opacification would be associated with severe toxicity, severe hypoxemia, and likely severe shock, which is inconsistent with the patient's current clinical condition.? I also reviewed the patient's adenopathy with him.? We made a plan to do a percutaneous ultrasound-guided needle biopsy and enlarged right inguinal lymph node. On exam today, she is well sedated on propofol 30ug and Fentanyl 50ug.? Also on Levophed 0.05ug.? HR 72, SR.? BP 139/47.? On AC 20/350/50%/+5, RR is 20, Ve 7L, PIP 33cm, ETCO2 40mm, Sat 92%.? CVBG this morning 7.28/37/-7.? Tmax is down to 100.2?.? No JVD.? Chest still has a very slight faint exp wheeze, with normal exp phase.? Heart tones are soft, I heard no murmur or gallops.? The abdomen is obese and benign, with a very large panus.? She has about 1+ pretibial edema; it?s impossible to gauge central edema. 24 hr u/o 1085 cc, vs 305 cc the day before. LABORATORY DATA:? Below.? Notably, white count spiked to 30.? BUN up to 50, creat is down to 3.1, bicarb is 21, potassium is 4.2, phosphorus is up to 8.3, POCs are in the 200 range.? Urine Na this morning, after the liter of crystalloid, was still < 20. IMPRESSION: 1. Underlying super morbid obesity 2. Possible underlying obesity hypoventilation syndrome, with chronic hypercarbia. 3. Bilat, multilobar collapse or consolidation, of undetermined etiology.? Not likely pneumonia -- a pneumonia to this degree of consolidation would likely cause much, much more toxicity and much more severe hypoxemia.? Furthermore, there was no anticedant h/o toxicity or fever. 4. Acute respiratory failure.? Likely 2? to above multilobar collapse.? At this time, I see no relation to her COVID episode.? The etiology of her multilobar collapse is still unclear.? D/W Dr. Jurado, he thinks it could be atelectasis 2? the pleural effusions.? We?ll proceed with a right thoracentesis.? Increase PEEP to 12cm for now. 5. Wheezing.? She?s on BD?s.? Will trial steroids.? Might well have some level of CLD. 6. ? CHF, based on her CXR and BNP.? If she has CHF, it?s likely diastolic ddx, not systolic, based on the echo.? But diuresis made her renal indices rise further.? In contrast, IV fluids last night made her u/o improve and her creatinine better. 7. Probable right heart failure, based on her size and the echo.? Furthermore, the urine Na and the rising renal indices suggest cardiorenal syndrome.? The results of the fluid challenge are further suggestive. 8. Underlying CKD.? Possibly 2? RHF. 9. Acute kidney injury.? Likely 2? RHF/cardiorneal syndrome, as noted above. 10. Underlying DM.? Glucose levels under good control with Lantus and sliding scale insulin. 11. ID:? Evidence of pneumonia is lacking.? Abx were d/c?d. 12. Mediastinal, axillary, abdominal, and ?lymphadenopathy.? Could be due to underlying lymphoma/lymphoproliferative process or metastatic disease. ?Will proceed with LN biopsy and oncology consult. 13. Nutrition.? On Nepro. I spoke with the patient?s lisa Gomez again today about the CT and bronch results, and plan for thoracentesis and LN bx. Critical care time (including extended discussions with Dr. Gandara and Dr. Painting from IR, and with Dr. Jurado from pulmonary):? 80+ min. Critical Care Time (minutes): 80 Physical Exam Vital Signs: Vital Signs: Last Vital Signs Temp 100.2 F 11/24/21 19:00 Pulse 68 11/24/21 19:00 Resp 20 11/24/21 19:00 BP 136/40 L 11/24/21 19:00 Pulse Ox 93 11/24/21 19:00 O2 Del Method 11/24/21 19:00 FiO2 55 11/24/21 19:00 BMI result Body Mass Index 53.8 Objective Data Labs CBC & Chem 7: 11/24/21 05:14 11/24/21 05:14 Labs: Laboratory Results - last 24 hr 11/24/21 11/24/21 11/24/21 00:08 04:40 05:14 WBC 30.1 H* RBC 3.67 L Hgb 9.1 L Hct 30.5 L MCV 83.1 MCH 24.8 L MCHC 29.8 L RDW 16.7 H Plt Count 230 MPV 11.4 Absolute Nucleated RBC 0.000 Nucleated RBC % (auto) 0.0 VBG pH VBG pCO2 VBG pO2 VBG HCO3 VBG O2 Saturation VBG Base Excess Sodium Potassium Chloride Carbon Dioxide Anion Gap BUN Creatinine Estim Creat Clear Calc Estimated GFR POC Glucose 128 H Random Glucose Calcium Phosphorus C-Reactive Protein B-Natriuretic Peptide Ur Random Sodium < 20.0 11/24/21 11/24/21 11/24/21 05:14 05:14 05:14 WBC RBC Hgb Hct MCV MCH MCHC RDW Plt Count MPV Absolute Nucleated RBC Nucleated RBC % (auto) VBG pH VBG pCO2 VBG pO2 VBG HCO3 VBG O2 Saturation VBG Base Excess Sodium 140 Potassium 4.2 Chloride 102 Carbon Dioxide 21 L Anion Gap 21 H BUN 50 H Creatinine 3.10 H Estim Creat Clear Calc 24.8 Estimated GFR 15 POC Glucose Random Glucose 224 H Calcium 7.8 L Phosphorus 8.3 H C-Reactive Protein 11.10 H B-Natriuretic Peptide 644 H Ur Random Sodium 11/24/21 11/24/21 11/24/21 05:19 05:50 11:43 WBC RBC Hgb Hct MCV MCH MCHC RDW Plt Count MPV Absolute Nucleated RBC Nucleated RBC % (auto) VBG pH 7.28 L VBG pCO2 37 VBG pO2 59 VBG HCO3 18 L VBG O2 Saturation 86.0 VBG Base Excess -7.8 Sodium Potassium Chloride Carbon Dioxide Anion Gap BUN Creatinine Estim Creat Clear Calc Estimated GFR POC Glucose 215 H 204 H Random Glucose Calcium Phosphorus C-Reactive Protein B-Natriuretic Peptide Ur Random Sodium 11/24/21 17:22 WBC RBC Hgb Hct MCV MCH MCHC RDW Plt Count MPV Absolute Nucleated RBC Nucleated RBC % (auto) VBG pH VBG pCO2 VBG pO2 VBG HCO3 VBG O2 Saturation VBG Base Excess Sodium Potassium Chloride Carbon Dioxide Anion Gap BUN Creatinine Estim Creat Clear Calc Estimated GFR POC Glucose 112 Random Glucose Calcium Phosphorus C-Reactive Protein B-Natriuretic Peptide Ur Random Sodium Microbiology Microbiology Results: Microbiology 11/20/21 03:44 Sputum - Suctioned Gram Stain - Final 11/20/21 03:44 Sputum - Suctioned Sputum Culture - Final 11/19/21 18:42 Blood - Venous Blood Culture - Preliminary No growth after 48 hours. 11/19/21 18:37 Blood - Venous Blood Culture - Preliminary No growth after 48 hours. 11/20/21 Unknown Urine Catheterized - Turner Catheter Urine Culture - Final No growth. Quality Stroke Does the patient have a stroke diagnosis?: No VTE Prior VTE?: No VTE Risk Level:: Medical - moderate - high VTE Device Contraindication: Treatment Not Indicated VTE Drug Contraindication: N/A - Med Ordered Critical Care Time Critical Care Time (minutes): 90
[2021-11-24] MEDS: methylPREDNISolone Sod Succ 125 MG/2 ML VIAL 60 MG IVPUSH (21:18)
[2021-11-24 23:55] LABS: Glucose, Whole Blood 157 mg/dL (60-115)
[2021-11-25] VITALS (35 sets, daily range): BP systolic 97–165; BP diastolic 33–57; PULSE 76–99; RESP 20–37; TEMP 34.6–39.8; O2SAT 92–97; BMI 53.8
[2021-11-25] MEDS: propofoL 1,000 MG/100 ML VIAL 27.4 MG IVCONT ×3 (01:37→08:39)
[2021-11-25 01:47] LABS: Complement C3 89 mg/dL (83-193)
[2021-11-25] MEDS: methylPREDNISolone Sod Succ 125 MG/2 ML VIAL 60 MG IVPUSH ×3 (02:45→13:58)
[2021-11-25] MEDS: Albuterol/Iprat 2.5/0.5MG 3 ML AMPUL.NEB INHALE ×6 (05:13→23:12)
[2021-11-25 05:31] LABS: VBG Base Excess -4.5 mmol/L; VBG HCO3 20 mmol/L (22-26); VBG pCO2 35 mmHg; VBG pH 7.36 (7.32-7.43); VBG pO2 51 mmHg
[2021-11-25 06:00] LABS: Glucose, Whole Blood 204 mg/dL (60-115)
[2021-11-25] MEDS: Insulin Lispro 100 UNIT/ML 3 ML VIAL SUBCUT ×3 (06:02→18:38)
[2021-11-25 06:29] LABS: Venous Blood Gas Refer to POC result
[2021-11-25 06:31] LABS: Alanine Aminotransferase 9 U/L (0-31); Albumin Level 3.1 g/dL (3.5-5.0); Alkaline Phosphatase 78 U/L (39-117); Anion Gap 22 (12-20); Aspartate Amino Transferase 9 U/L (5-31); Bilirubin Total 0.4 mg/dL (0.0-1.0); Blood Urea Nitrogen 52 mg/dL (9-16); C Reactive Protein 10.88 mg/dL (< or = 0.50); Carbon Dioxide 23 mmol/L (22-29); Chloride 102 mmol/L (96-108); Creatinine Clr Calc Pharmacy 28.7; Estimated Glomerular Filt Rate 18; Glucose Random 221 mg/dL (60-115); Potassium 4.1 mmol/L (3.3-5.1); Sodium 143 mmol/L (135-145); Total Protein 6.2 g/dL (6.5-8.0)
[2021-11-25 06:34] LABS: Basophils Absolute Auto 0.1 X10*3/uL (0.0-0.2); Basophils Percent Auto 0.3 % (0-2); Eosinophils Absolute Auto 0.3 X10*3/uL (0.0-0.4); Eosinophils Percent Auto 1.2 % (0-4); Hematocrit 30.3 % (37.0-47.0); Hemoglobin 9.2 g/dl (12.0-16.0); Imm Gran Pct Auto 1.5 % (0.0-0.4); Lymphocytes Absolute Auto 0.6 X10*3/uL (1.2-4.9); MANUAL DIFF FLAG SCAN; Mean Corpuscular HGB Conc 30.4 g/dl (31.0-35.0); Mean Corpuscular Hemoglobin 24.6 pg (27.0-33.0); Monocytes Absolute Auto 0.2 X10*3/uL (0.1-1.2); Monocytes Percent Auto 0.8 % (2-11); Neutrophils Absolute Auto 19.1 x10*3/uL (2.0-8.3); Neutrophils Percent Auto 93.2 % (45-73); Platelet Count 278 X10*3/uL (160-400); Red Blood Count 3.74 X10*6/uL (4.20-5.50); Red Cell Distribution Width 16.9 % (11.0-16.0); SCAN SMEAR FLAG 1; White Blood Count 20.5 X10*3/uL (4.8-10.8)
[2021-11-25 06:44] LABS: Procalcitonin 0.38 ng/mL
[2021-11-25] MEDS: Heparin Sodium,Porcine 5,000 UNIT/ML VIAL 5000 UNIT SUBCUT ×3 (07:23→22:52)
[2021-11-25] MEDS: Chlorhexidine Gluc Oral Rinse 15 ML MOUTHWASH BUCCAL ×3 (07:23→22:52)
[2021-11-25] MEDS: Insulin Glargine,Hum.rec.anlog 100 UNIT/ML 10 ML VIAL 40 UNIT SUBCUT (07:24)
[2021-11-25 07:47] LABS: SLIDE REVIEW VERIFIED
[2021-11-25] MEDS: Nystatin Powder 15 GM BOTTLE 1 APPL TOPICAL ×2 (08:39→22:52)
--- NOTE | 2021-11-25 10:09 | PM.PNNEP ---
Subjective Subjective Date of Service: 11/25/21 Interval history: Seen and examined, events noted Remains in vent Pressors off making urine 30-40/hr Physical Exam Vital Signs: Vital Signs: Last Vital Signs Temp 100.9 F H 11/25/21 10:00 Pulse 77 11/25/21 10:00 Resp 20 11/25/21 10:00 BP 105/40 L 11/25/21 10:00 Pulse Ox 97 11/25/21 10:00 O2 Del Method 11/25/21 10:00 FiO2 50 11/25/21 10:00 BMI result Body Mass Index 53.8 Const: Other: Appearance: Lethargic, barely arousable Eyes: Pupils equal, round and reactive to light. ENT: Pharynx normal. Neck: Normal inspection. Neck supple. No lymph nodes noted. No crepitus CVS: Normal heart rate and rhythm. Pulses normal. Normal S1 and S2 Respiratory: In severe respiratory distress, mild wheezing, barely audible breath sounds Abdomen: Soft and nontender. No rigidity. No distention. Skin: Skin warm and dry. Normal skin color. Normal skin turgor. Extremities: No lower extremity edema. No Lacerations. No Rash Neuro: Very lethargic, unable to participate in cranial nerve assessment Psych: Lethargic General: no acute distress and other ( sedated on the vent arousable with sedation vacation) Nutritional Appearance: obese and Edematous Eyes: Sclerae: sclerae normal EOM: EOMs intact bilaterally Neck: Neck: Yes no lymphadenopathy, Yes trachea midline and Yes supple Resp: Auscultation: crackles ( bilateral) Cardio: Rate: regular rate Rhythm: regular rhythm Heart sounds: no gallops, no murmurs and no rubs GI: Palpation (GI): Soft to palpation and Other GI palpation findings present ( Nontender) Auscultation: normal bowel sounds Extrem: General: Yes no pedal edema, No clubbing, No cyanosis and Yes edema ( 2+ bilateral) Objective Data Labs CBC & Chem 7: 11/25/21 05:24 11/25/21 05:24 Labs: Laboratory Results - last 24 hr 11/23/21 11/24/21 11/24/21 14:23 11:43 17:22 WBC RBC Hgb Hct MCV MCH MCHC RDW Plt Count MPV Immature Gran % (Auto) Neut % (Auto) Lymph % (Auto) [place] % (Auto) Eos % (Auto) Baso % (Auto) Lymph # (Auto) [place] # (Auto) Eos # (Auto) Baso # (Auto) Abs Immat Gran (auto) Absolute Neuts (auto) Absolute Nucleated RBC Nucleated RBC % (auto) Smear Tech's Comments VBG pH VBG pCO2 VBG pO2 VBG HCO3 VBG O2 Saturation VBG Base Excess Sodium Potassium Chloride Carbon Dioxide Anion Gap BUN Creatinine Estim Creat Clear Calc Estimated GFR POC Glucose 204 H 112 Random Glucose Calcium Total Bilirubin AST ALT Alkaline Phosphatase C-Reactive Protein Total Protein Albumin Procalcitonin Complement C3 89 Complement C4 30 11/24/21 11/25/21 11/25/21 23:51 05:24 05:24 WBC 20.5 H RBC 3.74 L Hgb 9.2 L Hct 30.3 L MCV 81.0 MCH 24.6 L MCHC 30.4 L RDW 16.9 H Plt Count 278 MPV 12.0 Immature Gran % (Auto) 1.5 H Neut % (Auto) 93.2 H Lymph % (Auto) 3.0 L [place] % (Auto) 0.8 L Eos % (Auto) 1.2 Baso % (Auto) 0.3 Lymph # (Auto) 0.6 L [place] # (Auto) 0.2 Eos # (Auto) 0.3 Baso # (Auto) 0.1 Abs Immat Gran (auto) 0.30 H Absolute Neuts (auto) 19.1 H Absolute Nucleated RBC 0.000 Nucleated RBC % (auto) 0.0 Smear Tech's Comments VERIFIED VBG pH VBG pCO2 VBG pO2 VBG HCO3 VBG O2 Saturation VBG Base Excess Sodium 143 Potassium 4.1 Chloride 102 Carbon Dioxide 23 Anion Gap 22 H BUN 52 H Creatinine 2.67 H Estim Creat Clear Calc 28.7 Estimated GFR 18 POC Glucose 157 H Random Glucose 221 H Calcium 8.0 L Total Bilirubin 0.4 AST 9 ALT 9 Alkaline Phosphatase 78 C-Reactive Protein 10.88 H Total Protein 6.2 L Albumin 3.1 L Procalcitonin Complement C3 Complement C4 11/25/21 11/25/21 11/25/21 05:24 05:26 05:55 WBC RBC Hgb Hct MCV MCH MCHC RDW Plt Count MPV Immature Gran % (Auto) Neut % (Auto) Lymph % (Auto) [place] % (Auto) Eos % (Auto) Baso % (Auto) Lymph # (Auto) [place] # (Auto) Eos # (Auto) Baso # (Auto) Abs Immat Gran (auto) Absolute Neuts (auto) Absolute Nucleated RBC Nucleated RBC % (auto) Smear Tech's Comments VBG pH 7.36 VBG pCO2 35 VBG pO2 51 VBG HCO3 20 L VBG O2 Saturation 79.0 VBG Base Excess -4.5 Sodium Potassium Chloride Carbon Dioxide Anion Gap BUN Creatinine Estim Creat Clear Calc Estimated GFR POC Glucose 204 H Random Glucose Calcium Total Bilirubin AST ALT Alkaline Phosphatase C-Reactive Protein Total Protein Albumin Procalcitonin 0.38 Complement C3 Complement C4 Microbiology Microbiology Results: Microbiology 11/19/21 18:42 Blood - Venous Blood Culture - Final No growth after 5 days. 11/19/21 18:37 Blood - Venous Blood Culture - Final No growth after 5 days. 11/20/21 03:44 Sputum - Suctioned Gram Stain - Final 11/20/21 03:44 Sputum - Suctioned Sputum Culture - Final 11/20/21 Unknown Urine Catheterized - Turner Catheter Urine Culture - Final No growth. Procedures Date of Service Date of Service: 11/25/21 Assessment & Plan Assessment and plan (1) Acute respiratory failure with hypoxia: Status: Acute (2) Pneumonia: Status: Acute (3) Acute exacerbation of congestive heart failure: Status: Acute (4) LEO (acute kidney injury): Status: Acute (5) Obesity: Status: Acute (6) Hypothyroidism: Status: Acute (7) HTN (hypertension): Status: Acute (8) Diabetes mellitus with insulin therapy: Status: Acute Plan 1. OLiguric--> Non-Oliguric LEO: c/w multifact ATN depeite FENa < 1%; SCr slt decr so can cont to hold of on CODING AUDITOR 2. CKD 3: BL SCr 1.4-1.7 3. Hypoxic Resp fauilure; Pneumonia >> CHF REC: cont lasix drip; no indication for CODING AUDITOR yet; track renal func and UOP; avoid NToxins will follow with team Time Spent With Patient Time: Total time spent is greater than 50% in coordination of care (as documented) at patient's floor/unit and/or counseling patient: Progress Note: Quality Stroke Does the patient have a stroke diagnosis?: No
--- NOTE | 2021-11-25 10:40 | HO.RADPN ---
RADIOLOGY Narrative Narrative: Right thoracentesis performed using 4 fr catheter. 600 ml clear camila colored fluid removed. CXR pending. Right groin lymph node core biopsy.
--- NOTE | 2021-11-25 11:27 | MHC.CLN ---
F/U PT IS INTUBATED AND SEDATED. DISCUSSED WITH MD AT ROUNDS. LABS REVIEWED. TF CURRENTLY CLAMPED FOR PROCEDURE TODAY. WHEN TUBE FEEDING RESUMES: TUBE FEED NEPRO AT MAX GOAL RATE 10ML/HR WITH 30ML PROSOURCE BID. PROVIDES 432+120 KCALS (1516 KCALS WITH SEDATION; 25.6 KCALS/KG IBW), 49 G PROTEIN TOTAL (.86 G/KG IBW), 175 ML FREE WATER FROM FORMULA. MONITOR TOLERANCE, RESIDUALS, AND LYTES.
[2021-11-25 11:45] LABS: Glucose, Whole Blood 208 mg/dL (60-115)
[2021-11-25 12:03] LABS: MN% 92.4 %; PMN% 7.6 %; RBC Pleural Fluid 0.002 X10*3/uL; WBC Pleural Fluid 0.845 X10*3/uL
[2021-11-25] MEDS: Lidocaine HCl 1 % MPF 5 ML VIAL SUBCUT ×2 (12:23→12:26)
[2021-11-25 12:59] LABS: BF Shift QC OK YES; Lymphocytes Pleural Fluid 49 %; Monocytes Pleural Fluid 4 %; Neutrophils Pleural Fluid 8 %; Other Cells Plerual Fl 39 %
--- NOTE | 2021-11-25 13:53 | P.PNCC_ITS ---
Subjective Subjective Date of Service: 11/25/21 Interval History: Mrs. Toney was admitted to ICU on November 19 with acute respiratory failure. The patient is a 71-year-old female with the following past medical history: Supermorbid obesity (5?5?, 148kg) DM on insulin HLD HTN CKD - baseline 20/1.4 Hypothyroidism Lower extremity edema Migraine Pseudotumor cerebri PVD She is not normally on oxygen at home.? There is no prior h/o COPD or CHF.? There are no previous blood gases in the chart, but her serum bicarb levels run borderline high.? Prior echo in 2016 was technically difficult, showed normal LV size and systolic function; the right ventricle was unable to be visualized; there was mild to moderate mitral stenosis. S/P COVID:? On October 08, 2021, the patient was admitted to [facility] bec of severe hypoglycemia.? Sat was 98% on 2 L.? COVID DENY was negative.? Chest CT showed mild chronic interstitial disease with no evidence of pneumonia.? She had significant mediastinal lymphadenopathy the largest node in the paracarinal area measuring 3 cm.? She also had large axillary lymph nodes, the largest one on the right measuring 2 cm. Because a household member tested positive for COVID, the patient was retested on October 10 and COVID DENY was positive. ?At that time, sat was 97% on 4 L nasal cannula.? She was treated with 5 days of remdesivir and 6 days of dexamethasone.? She was discharged to home on October 16 on 3L NC oxygen and four more days of dexamethasone.? She had been using the oxygen at home since then. Functional status:? According to the family, the patient has always been one to stay at home, rarely left the house.? She has not driven a car in many years.? She currently lives in her own home and a daughter and a couple of grandsons live with her.? She is independent with her ADLs and mostly walks unaided but sometimes uses a walker.? She spends most of the day in an easy chair and sleeps in the chair also. MEDS at home included amlodipine, insulin, aspirin, Lasix 40 mg bid, thyroid, and Januvia, along with amitriptyline, Librium, citalopram, and clonazepam. HISTORY OF PRESENT ILLNESS: On [place] 18th, she was BIBA to the ED with a one day h/o progressive SOB.? On arrival to the emergency room, the patient was barely conscious, in respiratory distress.? The patient was intubated immediately.? She was not hypotensive, and sat was up to 100% on 40% FiO2 on the ventilator.? White count was 16, hemoglobin was 10, D-dimer was 578, BUN creatinine were 20/1.2, bicarb 23, glucose 199, LFTs were normal, BNP was 304, troponin was 21 with follow-up 48, albumin was 3.2, TSH was 1.8, lactic acid was 1.8.? COVID DENY was negative. Chest x-ray showed low lung volumes with diffuse bilateral patchy infiltrates, with bilateral effusions.? CTPA showed no pulmonary emboli.? There was occlusion of the left lower lobe bronchus with near complete consolidation of the left lower lobe, along with significant lingula and right lower lobe and right middle lobe consolidation.? There were moderate right and small left pleural effusions.? The heart was enlarged.? There was significant mediastinal lymphadenopathy.? On abdominal CT, the kidneys were normal.? HOUSE CALLS NURSE shunt tubing was noted to terminate in the lower quadrant.? Prominent retroperitoneal lymph nodes and prominent right inguinal lymph nodes measured up to 4.5 cm. The patient was started on empiric broad-spectrum antibiotics and admitted to the ICU.? Presumptive diagnoses included possible pneumonia and CHF.? She was diuresed with a Lasix drip for one day, and continued on Zosyn.? Blood cultures were negative; sputum Gram stain showed 3+ polys with light Gram-positive cocci and yeast; the culture grew mixed respiratory maggie. Echocardiogram on November 20 was technically difficult.? LV cavity size was normal with mild LVH.? LV function was hyperdynamic, with EF greater than 70%.? RV cavity size was mildly increased with borderline RV systolic function.? The left atrium was severely dilated; the right atrium was normal.? There was mild and mild MR.? The TR envelope was inadequate for calculation of RVSP.? The IVC was dilated with no inspiratory collapse. Chest CT was repeated on 11/23.? It showed moderate bilateral pleural effusions, right larger than left, similar to the prior CT.? The entire left lower lobe and lingula were completely opacified, and there was partial opacification of the right middle and lower lobes and posterior upper lobes.? Because of the question of lobar collapse, the patient underwent bronchoscopy, which was completely normal:? The entire bronchial tree was clean except for a small amount of thin clear secretions.? There was no erythema or purulence.? There was no tracheobronchitis.? No endobronchial lesions or other phenomena that might cause bronchial obstruction and lobar collapse was found.? Because of the lack of any evidence of infection on bronchoscopy, antibiotics were discontinued last night In view of her low urine Na on 11/23, I gave her a liter of IVF.? That arrested the rise in her creatinine, altho her BUN is still rising slowly.? Yesterday I gave her four doses of solumedrol bec of wheezing. On exam today, the propofol and fentanyl have been off for 3 hours and she is still noninteractive, but makes eye opening movements to stimulation.? Levophed is at 0.03ug.? HR 93, SR.? BP 138/42.? On AC 20/350/50%/+8, RR is 22, Ve 7.8L, PIP 21cm, ETCO2 41mm, Sat 94%.? CVBG this morning 7.36/35/-4.? Tmax is up to 101.7?.? No JVD.? Chest is CTA, w normal exp phase.? Heart tones are soft, I heard no murmur or gallops.? The abdomen is obese and benign, with a very large panus.? She has about 1+ pretibial edema; it?s impossible to gauge central edema. 24 hr u/o up to 1245 cc. I changed her vent settings to Vt 400, FiO2 40%, increased PEEP to 10cm.? Today she underwent right thoracentesis and right inguinal lymph node biopsy by Dr. Painting. LABORATORY DATA:? Below.? Notably, white count down to 20.? BUN up to 52, creat is down to 2.6, bicarb is 23, potassium is 4.1, POCs are in the 200s. IMPRESSION: 1. Underlying super morbid obesity 2. Possible underlying obesity hypoventilation syndrome, with chronic hypercarbia. 3. Bilat, multilobar collapse or consolidation, of undetermined etiology.? Not likely pneumonia -- a pneumonia to this degree of consolidation would likely cause much, much more toxicity and much more severe hypoxemia.? Furthermore, there was no anticedant h/o toxicity or fever. 4. Acute respiratory failure.? Likely 2? to above multilobar collapse.? At this time, I see no relation to her COVID episode.? The etiology of her multilobar co llapse is still unclear.? Could be atelectasis 2? the pleural effusions.? She underwent right thoracentesis today, we?ll see how her ventilation and oxygenation improve over the coming hours. 5. Wheezing.? Resolved with BD?s and 24 hrs of steroids.? Might well have some level of CLD. 6. ? CHF, based on her CXR and BNP.? If she has CHF, it?s likely diastolic ddx, not systolic, based on the echo.? But diuresis made her renal indices rise further.? In contrast, IV fluids made her u/o improve and her creatinine better. 7. Probable right heart failure, based on her size and the echo.? Furthermore, the urine Na and the rising renal indices with diuresis, and improvement with IV fluids are pathognomonic of cardiorenal syndrome. 8. Underlying CKD.? Possibly 2? RHF. 9. Acute kidney injury.? Likely 2? RHF/cardiorneal syndrome, as noted above. 10. Underlying DM.? On Lantus and sliding scale insulin.? The propofol is now off, should improve her glucose control. 11. ID:? Evidence of pneumonia is lacking.? Abx were d/c?d.? New fever today.? I sent cultures.? Repeat sputum GS is pending.? Pleural fluid gram stain is pending. 12. Mediastinal, axillary, abdominal, and ?lymphadenopathy.? Could be due to underlying lymphoma/lymphoproliferative process or metastatic disease. ?LN biopsy was done, and I spoke with Dr. Ruiz from oncology.? She?s ordered other studies. 13. Neuropsych.? No wake up after a few hours off sedation.? We?ll leave her off. 14. Nutrition.? On Nepro. Spoke with the patient?s lisa Gomez again today and updated her on condition and treatment plan. Critical care time (including discussions with Dr. Painting from IR, and with Dr. Ruiz):? 75+ min. Critical Care Time (minutes): 75 Physical Exam Vital Signs: Vital Signs: Last Vital Signs Temp 101.3 F H 11/25/21 13:00 Pulse 94 08/24/22 13:00 Resp 21 H 11/25/21 13:00 BP 146/41 H 11/25/21 13:00 Pulse Ox 96 11/25/21 13:00 O2 Del Method 11/25/21 13:00 FiO2 50 11/25/21 13:00 BMI result Body Mass Index 53.8 Objective Data Labs CBC & Chem 7: 11/25/21 05:24 11/25/21 05:24 Labs: Laboratory Results - last 24 hr 11/23/21 11/24/21 11/24/21 14:23 17:22 23:51 WBC RBC Hgb Hct MCV MCH MCHC RDW Plt Count MPV Immature Gran % (Auto) Neut % (Auto) Lymph % (Auto) [place] % (Auto) Eos % (Auto) Baso % (Auto) Lymph # (Auto) [place] # (Auto) Eos # (Auto) Baso # (Auto) Abs Immat Gran (auto) Absolute Neuts (auto) Absolute Nucleated RBC Nucleated RBC % (auto) Smear Tech's Comments VBG pH VBG pCO2 VBG pO2 VBG HCO3 VBG O2 Saturation VBG Base Excess Sodium Potassium Chloride Carbon Dioxide Anion Gap BUN Creatinine Estim Creat Clear Calc Estimated GFR POC Glucose 112 157 H Random Glucose Calcium Total Bilirubin AST ALT Alkaline Phosphatase C-Reactive Protein Total Protein Albumin Procalcitonin Pleural pH Pleural WBC Pleural RBC Pleural Neutrophils Pleural Lymphocytes Pleural Monocytes Pleural Other Cells Complement C3 89 Complement C4 30 11/25/21 11/25/21 11/25/21 05:24 05:24 05:24 WBC 20.5 H RBC 3.74 L Hgb 9.2 L Hct 30.3 L MCV 81.0 MCH 24.6 L MCHC 30.4 L RDW 16.9 H Plt Count 278 MPV 12.0 Immature Gran % (Auto) 1.5 H Neut % (Auto) 93.2 H Lymph % (Auto) 3.0 L [place] % (Auto) 0.8 L Eos % (Auto) 1.2 Baso % (Auto) 0.3 Lymph # (Auto) 0.6 L [place] # (Auto) 0.2 Eos # (Auto) 0.3 Baso # (Auto) 0.1 Abs Immat Gran (auto) 0.30 H Absolute Neuts (auto) 19.1 H Absolute Nucleated RBC 0.000 Nucleated RBC % (auto) 0.0 Smear Tech's Comments VERIFIED VBG pH VBG pCO2 VBG pO2 VBG HCO3 VBG O2 Saturation VBG Base Excess Sodium 143 Potassium 4.1 Chloride 102 Carbon Dioxide 23 Anion Gap 22 H BUN 52 H Creatinine 2.67 H Estim Creat Clear Calc 28.7 Estimated GFR 18 POC Glucose Random Glucose 221 H Calcium 8.0 L Total Bilirubin 0.4 AST 9 ALT 9 Alkaline Phosphatase 78 C-Reactive Protein 10.88 H Total Protein 6.2 L Albumin 3.1 L Procalcitonin 0.38 Pleural pH Pleural WBC Pleural RBC Pleural Neutrophils Pleural Lymphocytes Pleural Monocytes Pleural Other Cells Complement C3 Complement C4 11/25/21 11/25/21 11/25/21 05:26 05:55 09:30 WBC RBC Hgb Hct MCV MCH MCHC RDW Plt Count MPV Immature Gran % (Auto) Neut % (Auto) Lymph % (Auto) [place] % (Auto) Eos % (Auto) Baso % (Auto) Lymph # (Auto) [place] # (Auto) Eos # (Auto) Baso # (Auto) Abs Immat Gran (auto) Absolute Neuts (auto) Absolute Nucleated RBC Nucleated RBC % (auto) Smear Tech's Comments VBG pH 7.36 VBG pCO2 35 VBG pO2 51 VBG HCO3 20 L VBG O2 Saturation 79.0 VBG Base Excess -4.5 Sodium Potassium Chloride Carbon Dioxide Anion Gap BUN Creatinine Estim Creat Clear Calc Estimated GFR POC Glucose 204 H Random Glucose Calcium Total Bilirubin AST ALT Alkaline Phosphatase C-Reactive Protein Total Protein Albumin Procalcitonin Pleural pH Pleural WBC 0.845 Pleural RBC 0.002 Pleural Neutrophils 8 Pleural Lymphocytes 49 Pleural Monocytes 4 Pleural Other Cells 39 Complement C3 Complement C4 11/25/21 11/25/21 11:41 Unknown WBC RBC Hgb Hct MCV MCH MCHC RDW Plt Count MPV Immature Gran % (Auto) Neut % (Auto) Lymph % (Auto) [place] % (Auto) Eos % (Auto) Baso % (Auto) Lymph # (Auto) [place] # (Auto) Eos # (Auto) Baso # (Auto) Abs Immat Gran (auto) Absolute Neuts (auto) Absolute Nucleated RBC Nucleated RBC % (auto) Smear Tech's Comments VBG pH VBG pCO2 VBG pO2 VBG HCO3 VBG O2 Saturation VBG Base Excess Sodium Potassium Chloride Carbon Dioxide Anion Gap BUN Creatinine Estim Creat Clear Calc Estimated GFR POC Glucose 208 H Random Glucose Calcium Total Bilirubin AST ALT Alkaline Phosphatase C-Reactive Protein Total Protein Albumin Procalcitonin Pleural pH TNP Pleural WBC Pleural RBC Pleural Neutrophils Pleural Lymphocytes Pleural Monocytes Pleural Other Cells Complement C3 Complement C4 Microbiology Microbiology Results: Microbiology 11/19/21 18:42 Blood - Venous Blood Culture - Final No growth after 5 days. 11/19/21 18:37 Blood - Venous Blood Culture - Final No growth after 5 days. 11/20/21 03:44 Sputum - Suctioned Gram Stain - Final 11/20/21 03:44 Sputum - Suctioned Sputum Culture - Final 11/20/21 Unknown Urine Catheterized - Turner Catheter Urine Culture - Final No growth. Quality Stroke Does the patient have a stroke diagnosis?: No VTE Prior VTE?: No VTE Risk Level:: Medical - moderate - high VTE Device Contraindication: Treatment Not Indicated VTE Drug Contraindication: N/A - Med Ordered Critical Care Time Critical Care Time (minutes): 90
--- NOTE | 2021-11-25 14:00 | MHC.CM.PN ---
Patient continues stay in ICU. Case Management will continue to follow for discharge planning needs when appropriate.
[2021-11-25 15:08] LABS: Appearance Urine Clear; Color Urine Yellow; Glucose Urine UA Negative (Negative); Leukocyte Esterase Urine Negative (Negative); Nitrite Urine Negative (Negative); PH 5.5 (5.0-8.0); Urine Blood Negative (Negative); Urine Ketones Negative (Negative); Urine Protein 30 (1+) mg/dL (Neg-Trace)
[2021-11-25 15:16] LABS: Lactic Acid 0.8 mmol/L (0.5-2.0)
--- NOTE | 2021-11-25 16:34 | P.CNHO_ITS ---
Subjective - Subjective Chief complaint: Pt intubated Consult date: 11/25/21 Requesting Physician: Danielito Otto MD Primary Care Provider: Tam Corea MD HPI - Consult Narrative Reason for consult: Lymphadenopathy and leukocytosis Narrative: Cindy Toney is a 71 year old female who was been admitted on November 19 with acute respiratory failure. Her medical history significant for diabetes mellitus, chronic kidney disease, pseudotumor cerebri and morbid obesity. She was diagnosed with COVID-19 infection in October 2021, CT chest showed mediastinal lymphadenopathy, largest node in the precarinal region measuring 3 cm. She also had enlarged axillary lymph nodes, right axillary node measuring 2 cm. She was treated with remdesivir and dexamethasone and discharged from the hospital October 16. She presented to ED on November 19 with 1 day history of progressive shortness of breath. Patient was intubated immediately, COVID test was negative. Chest x-ray showed bilateral patchy infiltrates with bilateral effusions. CT angiogram showed no pulmonary emboli but there was occlusion of left lower lobe bronchus with near complete consolidation of the left lower lobe, right lower lobe and right middle lobe consolidation. Liver moderate right hand small left pleural effusions. Heart was enlarged. There was persistent mediastinal lymphadenopathy, prominent retroperitoneal and right inguinal lymph nodes which measured up to 4.5 cm. She was admitted for possible pneumonia and CHF. She underwent bronchoscopy on 11/23/2021 which was negative. On 11/25/2021 she underwent right thoracentesis and right inguinal lymph node biopsy. She has been taken off antibiotics. Because of concern of worsening lymphadenopathy, possibility of lymphoma or metastatic malignancy was raised. Oncology Screenings - ECOG Performance Status ECOG Performance Status: 4 [facility] Medical History: Medical History (Last Updated 11/20/21 @ 11:29 by Bin Jurado MD) CKD (chronic kidney disease) Congestive heart failure COVID Diabetes mellitus with insulin therapy HLD (hyperlipidemia) HTN (hypertension) Hypothyroidism Lower extremity edema Migraine Obesity Pseudotumor cerebri PVD (peripheral vascular disease) Family History: Family History (Last Reviewed 10/10/21 @ 11:46 by Gudelia Morgan, PT) Mother Heart attack, Onset Age: 92 Father Heart attack, Onset Age: 66 Other Diabetes Surgical History: Surgical History (Last Reviewed 10/10/21 @ 12:08 by Gudelia Morgan, PT) H/O cataract extraction H/O hysterectomy for benign disease Hx of cholecystectomy S/P appendectomy Social History: Social History (Last Reviewed 10/10/21 @ 11:46 by Gudelia Morgan PT) Tobacco History: Patient Tobacco Use Status: Never used Tobacco Advance Directives: Advance Directives Date on File: 09/26/20 Occupation Assessmet: service: No Current occupational status: disabled Home Medications and Allergies Current Medications: Current Medications Acetaminophen (Acetaminophen Oral Liquid 650 Mg/20.3 Ml Solution) 650 mg PO Q6H PRN PRN Reason: Fever >101 Last Admin: 11/23/21 07:43 Dose: 650 mg Albuterol/Ipratropium (Albuterol/Iprat 2.5/0.5mg 3 Ml Ampul.Neb) 3 ml INHALE RQ4H ALAN Last Admin: 11/25/21 15:21 Dose: 3 ml Chlorhexidine Gluconate (Chlorhexidine Gluc Oral Rinse 15 Ml Mouthwash) 15 ml BUCCAL TID ALAN Last Admin: 11/25/21 13:57 Dose: 15 ml Heparin Sodium (Porcine) (Heparin Sodium,Porcine 5,000 Unit/Ml Vial) 5,000 unit SUBCUT Q8H ALAN Last Admin: 11/25/21 13:58 Dose: 5,000 unit Propofol (Diprivan) 1,000 mg in 100 mls @ 0 mls/hr IVCONT .Q0M ALAN; Protocol Last Titration: 11/25/21 11:00 Dose: 0 mcg/kg/min, 0 mls/hr Norepinephrine Bitartrate (Levophed) 8 mg in 250 mls @ 0 mls/hr IVCONT .Q0M ALAN; Protocol Last Titration: 11/25/21 14:03 Dose: 0.2 mcg/kg/min, 54.41 mls/hr Fentanyl (Sublimaze/Ns) 1,000 mcg in 100 mls @ 0 mls/hr IVCONT .Q0M ALAN; Protocol Last Titration: 11/25/21 11:00 Dose: 0 mcg/hr, 0 mls/hr Insulin Glargine (Insulin Glargine,Hum.Rec.Anlog 100 Unit/Ml 10 Ml Vial) 40 unit SUBCUT DAILY ALAN Last Admin: 11/25/21 07:24 Dose: 40 unit Insulin Human Lispro (Insulin Lispro 100 Unit/Ml 3 Ml Vial) 0 unit SUBCUT Q6H ALAN; Protocol Last Admin: 11/25/21 11:52 Dose: 4 unit Nystatin (Nystatin Powder 15 Gm Bottle) 1 appl TOPICAL BID [facility]; Protocol Last Admin: 11/25/21 08:39 Dose: 1 appl Omeprazole (Omeprazole 20 Mg/10 Ml Susp.Recon) 40 mg OG-TUBE DAILY@0630 [facility] Last Admin: 11/25/21 04:52 Dose: Not Given Home Medications Medication Instructions Recorded Confirmed Type amitriptyline 50 mg tablet 25 mg PO DAILY 10/08/21 11/20/21 History aspirin 325 mg tablet 325 mg PO DAILY 10/08/21 11/20/21 History brinzolamide 1 %-brimonidine 0.2 % 1 drp ophthalmic-Right BID 10/08/21 11/20/21 History eye drops,suspension (Simbrinza) chlordiazepoxide HCl 10 mg capsule 10 mg PO BEDTIME 10/08/21 11/20/21 History citalopram 20 mg tablet 20 mg PO DAILY 10/08/21 11/20/21 History clonazepam 0.5 mg tablet 0.5 mg PO BID 10/08/21 11/20/21 History docusate sodium 100 mg tablet 100 mg PO DAILY 10/08/21 11/20/21 History furosemide 40 mg tablet 40 tab PO BID@0900,1800 10/08/21 11/20/21 History hydroxychloroquine 200 mg tablet 200 mg PO BID 10/08/21 11/20/21 History insulin glargine 100 unit/mL (3 80 unit subcut BEDTIME 10/08/21 11/20/21 History mL) subcutaneous pen (Lantus Solostar U-100 Insulin) insulin lispro protamine-lispro 7 - 15 ea subcut TIDAC 10/08/21 11/20/21 History 100 unit/mL (75-25) subcutaneous pen levothyroxine 175 mcg tablet 175 mcg PO DAILY@0600 10/08/21 11/20/21 History multivitamin 1 tab PO DAILY 10/08/21 11/20/21 History netarsudil 0.02 %-latanoprost 1 drp ophthalmic (eye) BEDTIME 10/08/21 11/20/21 History 0.005 % eye drops (Rocklatan) simvastatin 20 mg tablet 20 mg PO BEDTIME 10/08/21 11/20/21 History sitagliptin 100 mg tablet (Januvia) 100 mg PO DAILY 10/08/21 11/20/21 History latanoprost 0.005 % eye drops 1 drp ophthalmic (eye) BEDTIME 11/20/21 11/20/21 History Allergies Allergy/AdvReac Type Severity Reaction Status Date / Time oxycodone [From Percocet] Allergy Intermediate Rash Verified 11/19/21 17:16 Physical Exam Vital signs: Vital Signs Temp 102.8 F H 11/25/21 16:00 Pulse 79 11/25/21 15:26 Resp 20 11/25/21 15:26 BP 138/51 L 11/25/21 15:00 Pulse Ox 94 11/25/21 15:00 O2 Del Method 11/25/21 15:00 FiO2 40 11/25/21 16:00 Intake & Output 11/24/21 11/25/21 11/25/21 18:59 06:59 18:59 Intake Total 451.677 / 1031.734 580.057 / 1031.734 390.75 / 390.75 Output Total 440 / 1230 715 / 1230 480 / 480 Balance 11.677 / -198.266 -134.943 / -198.266 -89.25 / -89.25 Urine Output (Average ml/kg/hr) 0.25 0.41 0.27 Intake: Intake, Oral Amount 0 / 0 Intake, Tube Feeding Amount 75 / 135 60 / 135 80 / 80 Intake, Tube Irrigant Amount 20 / 20 Intake, Intraperitoneal Amount 20 / 20 Intake, IV Amount 336.677 / 856.734 520.057 / 856.734 310.75 / 310.75 Norepinephrine Bitartrate/NS 8 181.877 / 251.328 69.451 / 251.328 86.36 / 86.36 mg In 250 ml @ Per Protocol IVCONT .Q0M ALAN Rx#:[id number] fentaNYL citrate/NS 1,000 mcg 94.417 / 94.417 60 / 60 In 100 ml @ Per Protocol IVCONT .Q0M ALAN Rx#:[id number] propofoL 1,000 mg In 100 ml @ 154.8 / 510.989 356.189 / 510.989 164.39 / 164.39 Per Protocol IVCONT .Q0M ALAN Rx #:[id number] Output: Output, Urine Amount (Catheter) 440 / 1230 715 / 1230 480 / 480 gibson 440 / 1230 715 / 1230 480 / 480 Other: Urine Color Yellow Shira Weight 146.8 kg [place] Weight in Grams [id number] Weight 146.8 kg - Constitutional Present: somnolent Hem/Onc Consult Result - Labs CBC & Chem 7: 11/27/21 05:15 11/27/21 05:15 Labs: Short CBC 11/25/21 Range/Units 05:24 WBC 20.5 H (4.8-10.8) X10*3/uL Hgb 9.2 L (12.0-16.0) g/dl Hct 30.3 L (37.0-47.0) % Plt Count 278 (160-400) X10*3/uL BMP 11/25/21 05:24 Sodium 143 Potassium 4.1 Chloride 102 Carbon Dioxide 23 BUN 52 H Creatinine 2.67 H Calcium 8.0 L Liver Function 11/25/21 Range/Units 05:24 Total Bilirubin 0.4 (0.0-1.0) mg/dL AST 9 (5-31) U/L ALT 9 (0-31) U/L Alkaline Phosphatase 78 (39-117) U/L Albumin 3.1 L (3.5-5.0) g/dL Urine 11/25/21 Range/Units 14:40 Urine Color Yellow Urine Appearance Clear Urine pH 5.5 (5.0-8.0) Ur Specific [place] 1.020 (1.005-1.025) Urine Protein 30 (1+) H (Neg-Trace) mg/dL Urine Glucose (UA) Negative (Negative) mg/dL
[2021-11-25 16:52] LABS: Lactate Dehydrogenase 266 U/L (122-220); Uric Acid 7.9 mg/dL (2.4-5.7)
[2021-11-25 16:54] LABS: Bacteria Urine None Seen (None Seen); Hyaline Casts Urine 0-2 /LPF (0-2); Squamous Epithelial Cell Urine 0-2 /HPF (0-2); WBC Urine 0-5 /HPF (0-5)
[2021-11-25 18:30] LABS: Glucose, Whole Blood 248 mg/dL (60-115)
[2021-11-25] MEDS: Acetaminophen Oral Liquid 650 MG/20.3 ML SOLUTION PO (18:39)
[2021-11-26] VITALS (33 sets, daily range): BP systolic 109–154; BP diastolic 21–71; PULSE 83–100; RESP 13–23; TEMP 35–39.2; O2SAT 93–96; BMI 52.8
[2021-11-26 00:09] LABS: Glucose, Whole Blood 251 mg/dL (60-115)
[2021-11-26] MEDS: Insulin Lispro 100 UNIT/ML 3 ML VIAL SUBCUT ×4 (00:37→18:29)
[2021-11-26 05:20] LABS: VBG Base Excess -1.8 mmol/L; VBG HCO3 22 mmol/L (22-26); VBG pCO2 35 mmHg; VBG pO2 46 mmHg
[2021-11-26] MEDS: Albuterol/Iprat 2.5/0.5MG 3 ML AMPUL.NEB INHALE ×5 (05:20→20:04)
[2021-11-26] MEDS: Acetaminophen Oral Liquid 650 MG/20.3 ML SOLUTION PO (05:36)
[2021-11-26 05:37] LABS: Hematocrit 28.4 % (37.0-47.0); Hemoglobin 8.9 g/dl (12.0-16.0); Mean Corpuscular HGB Conc 31.3 g/dl (31.0-35.0); Mean Corpuscular Hemoglobin 25.4 pg (27.0-33.0); Mean Corpuscular Volume 81.1 fL (80.0-98.0); Mean Platelet Volume 11.8 fL (9.4-12.3); Platelet Count 283 X10*3/uL (160-400); Red Cell Distribution Width 17.2 % (11.0-16.0); White Blood Count 20.8 X10*3/uL (4.8-10.8)
[2021-11-26 05:53] LABS: Glucose, Whole Blood 254 mg/dL (60-115)
[2021-11-26 06:00] LABS: Anion Gap 18 (12-20); Blood Urea Nitrogen 69 mg/dL (9-16); Carbon Dioxide 26 mmol/L (22-29); Chloride 104 mmol/L (96-108); Creatinine Clr Calc Pharmacy 29.4; Estimated Glomerular Filt Rate 18; Glucose Random 273 mg/dL (60-115); Magnesium 2.9 mg/dL (1.6-2.6); Phosphorus 4.4 mg/dL (2.7-4.5); Potassium 3.2 mmol/L (3.3-5.1); Sodium 145 mmol/L (135-145)
[2021-11-26] MEDS: Heparin Sodium,Porcine 5,000 UNIT/ML VIAL 5000 UNIT SUBCUT ×3 (06:04→23:36)
[2021-11-26 06:43] LABS: Venous Blood Gas Refer to POC result
[2021-11-26] MEDS: Chlorhexidine Gluc Oral Rinse 15 ML MOUTHWASH BUCCAL ×3 (08:27→20:34)
[2021-11-26] MEDS: Nystatin Powder 15 GM BOTTLE 1 APPL TOPICAL ×2 (08:27→20:34)
[2021-11-26] MEDS: Insulin Glargine,Hum.rec.anlog 100 UNIT/ML 10 ML VIAL 40 UNIT SUBCUT (08:28)
[2021-11-26 10:16] LABS: Glucose Pleural Fluid 226 MG/DL; LDH Pleural Fluid 117 U/L
[2021-11-26] MEDS: Potassium Chloride Packet 20 MEQ PACKET 40 MEQ G-TUBE (10:18)
--- NOTE | 2021-11-26 10:34 | MHC.CLN ---
F/U PT IS INTUBATED. NO PROPOFOL. DISCUSSED WITH TEAM AT ROUNDS. LABS REVIEWED. RECOMMEND INCREASE NEPRO TUBE FEED TO NEW MAX GOAL RATE OF 30 ML PER HOUR. DISCONTINUE PROSOURCE SUPPLEMENT. NEPRO AT MAX GOAL RATE 30 ML PER HOUR PROVIDES: 1296 KCALS (22.8 G/KG IBW); 58 G PROTEIN (1.02 G/KG IBW), 523 ML FREE WATER FROM FORMULA. MONITOR TOLERANCE, RESIDUALS, AND LYTES.
[2021-11-26 10:43] LABS: Amylase Pleural Fluid 56 U/L
[2021-11-26 12:24] LABS: Glucose, Whole Blood 254 mg/dL (60-115)
--- NOTE | 2021-11-26 13:08 | P.PNCC_ITS ---
Subjective Subjective Date of Service: 11/26/21 Interval History: Mrs. Toney was admitted to ICU on November 19 with acute respiratory failure. The patient is a 71-year-old female with the following past medical history: Supermorbid obesity (5?5?, 148kg) DM on insulin HLD HTN CKD - baseline 20/1.4 Hypothyroidism Lower extremity edema Migraine Pseudotumor cerebri PVD She is not normally on oxygen at home.? There is no prior h/o COPD or CHF.? There are no previous blood gases in the chart, but her serum bicarb levels run borderline high.? Prior echo in 2015 was technically difficult, showed normal LV size and systolic function; the right ventricle was unable to be visualized; there was mild to moderate mitral stenosis. S/P COVID:? On October 08, 2021, the patient was admitted to [facility] bec of severe hypoglycemia.? Sat was 98% on 2 L.? COVID DENY was negative.? Chest CT showed mild chronic interstitial disease with no evidence of pneumonia.? She had significant mediastinal lymphadenopathy the largest node in the paracarinal area measuring 3 cm.? She also had large axillary lymph nodes, the largest one on the right measuring 2 cm. Because a household member tested positive for COVID, the patient was retested on October 10 and COVID DENY was positive.? At that time, sat was 97% on 4 L nasal cannula.? She was treated with 5 days of remdesivir and 6 days of dexamethasone.? She was discharged to home on October 16 on 3L NC oxygen and four more days of dexamethasone.? She had been using the oxygen at home since then. Functional status:? According to the family, the patient has always been one to stay at home, rarely left the house.? She has not driven a car in many years.? She currently lives in her own home and a daughter and a couple of grandsons live with her.? She is independent with her ADLs and mostly walks unaided but sometimes uses a walker.? She spends most of the day in an easy chair and sleeps in the chair also. MEDS at home included amlodipine, insulin, aspirin, Lasix 40 mg bid, thyroid, and Januvia, along with amitriptyline, Librium, citalopram, and clonazepam. HISTORY OF PRESENT ILLNESS: On [place] 18th, she was BIBA to the ED with a one day h/o progressive SOB.? On arrival to the emergency room, the patient was barely conscious, in respiratory distress.? The patient was intubated immediately.? She was not hypotensive, and sat was up to 100% on 40% FiO2 on the ventilator.? White count was 16, hemoglobin was 10, D-dimer was 578, BUN creatinine were 20/1.2, bicarb 23, glucose 199, LFTs were normal, BNP was 304, troponin was 21 with follow-up 48, albumin was 3.2, TSH was 1.8, lactic acid was 1.8.? COVID DENY was negative. Chest x-ray showed low lung volumes with diffuse bilateral patchy infiltrates, with bilateral effusions.? CTPA showed no pulmonary emboli.? There was occlusion of the left lower lobe bronchus with near complete consolidation of the left lower lobe, along with significant lingula and right lower lobe and right middle lobe consolidation.? There were moderate right and small left pleural effusions.? The heart was enlarged.? There was significant mediastinal lymphadenopathy.? On abdominal CT, the kidneys were normal.? [employer] shunt tubing was noted to terminate in the lower quadrant.? Prominent retroperitoneal lymph nodes and prominent right inguinal lymph nodes measured up to 4.5 cm. The patient was started on empiric broad-spectrum antibiotics and admitted to the ICU.? Presumptive diagnoses included possible pneumonia and CHF.? She was diuresed with a Lasix drip for one day, and continued on Zosyn.? Blood cultures were negative; sputum Gram stain showed 3+ polys with light Gram-positive cocci and yeast; the culture grew mixed respiratory maggie. Echocardiogram on November 20 was technically difficult.? LV cavity size was normal with mild LVH.? LV function was hyperdynamic, with EF greater than 70%.? RV cavity size was mildly increased with borderline RV systolic function.? The left atrium was severely dilated; the right atrium was normal.? There was mild and mild MR.? The TR envelope was inadequate for calculation of RVSP.? The IVC was dilated with no inspiratory collapse. Chest CT was repeated on 11/23.? It showed moderate bilateral pleural effusions, right larger than left, similar to the prior CT.? The entire left lower lobe and lingula were completely opacified, and there was partial opacification of the right middle and lower lobes and posterior upper lobes.? Because of the question of lobar collapse, the patient underwent bronchoscopy, which was completely normal:? The entire bronchial tree was clean except for a small amount of thin clear secretions.? There was no erythema or purulence.? There was no tracheobronchitis.? No endobronchial lesions or other phenomena that might cause bronchial obstruction and lobar collapse was found.? Because of the lack of any evidence of infection on bronchoscopy, antibiotics were discontinued last night In view of her low urine Na on 11/23, we gave her a liter of IVF.? That arrested the rise in her creatinine, altho her BUN is still rising slowly.? Yesterday she underwent right thoracentesis, and right inguinal lymph node biopsy, both by Dr. Painting at the bedside. On exam today, the propofol and fentanyl have been off for > 24 hours and she is still noninteractive, but makes eye opening movements to stimulation. ?Levophed is at 0.03ug.? HR 86, SR.? BP 125/44.? We switched her over to PSV.? On PSV 20/30%/+10, RR is 18, Vt 400cc, Ve 6.7L, PIP 31cm, ETCO2 41mm, Sat 94%.? CVBG this morning 7.40/35/-1.? Tmax is up to 102.6?.? No JVD.? Chest is CTA, w normal exp phase.? Heart tones are soft, I heard no murmur or gallops.? The abdomen is obese and benign, with a very large panus.? She has at least 1+ pretibial edema; it?s impossible to gauge central edema.? Probably has anasarca. 24 hr u/o up to 1540 cc. LABORATORY DATA:? Below.? Notably, white count is steady at 20.? BUN up to 69, creat is steady at 2.6, bicarb is 26, potassium is 3.2, POCs are in the 250s. IMPRESSION: 1. Underlying super morbid obesity 2. Possible underlying obesity hypoventilation syndrome, with chronic hypercarbia. 3. Bilat, multilobar collapse or consolidation, of undetermined etiology.? Not likely pneumonia -- a pneumonia to this degree of consolidation would likely cause much, much more toxicity and much more severe hypoxemia.? Furthermore, there was no anticedant h/o toxicity or fever.? Lastly, the bronchoscopy was clean, no purulence 4. Acute respiratory failure.? Likely 2? to above multilobar collapse.? At this time, I see no relation to her COVID episode.? The etiology of her multilobar collapse is still unclear.? Could be atelectasis 2? the pleural effusions.? Since the right thoracentesis, her oxygenation has definitely improved.? We?ll try to do the left side tomorrow.? The overarching determinant though is probably her mental status.? She?s not going anywhere until she wakes up. 5. Wheezing.? Resolved with BD?s and 24 hrs of steroids.? Might well have some level of CLD. 6. CHF -- based in the least on her CXR, BNP, and thoracentesis results.? If she has CHF, it?s likely diastolic ddx, not systolic, based on the echo.? But diuresis made her renal indices rise further.? In contrast, IV fluids made her u/o improve and her creatinine better. 7. Probable right heart failure, based on her size and the echo.? Furthermore, the urine Na and the rising renal indices with diuresis, and improvement with IV fluids are pathognomonic of cardiorenal syndrome.? I?m going to try one more liter bolus. 8. Underlying CKD.? Possibly 2? RHF. 9. Acute kidney injury.? Likely 2? RHF/cardiorneal syndrome, as noted above. 10. Underlying DM.? On Lantus and sliding scale insulin.? Increase Lantus dose to 25 units bid. 11. ID:? Evidence of pneumonia is lacking.? Abx were d/c?d.? New fever yesterday.? We pancultured.? Urine, blood, and sputum neg so far.? Pleural fluid gram stain, cell count, and chemistries are negative; the fluid was transudative. 12. Mediastinal, axillary, abdominal, and ?lymphadenopathy.? Could be due to underlying lymphoma/lymphoproliferative process or metastatic disease. ?LN biopsy was done, and I spoke with Dr. Ruiz from oncology.? She?s ordered other studies. 13. Neuropsych.? No wake up after > 24 hours off sedation.? We?ll leave her off.? Possible CT scan tomorrow. 14. Nutrition.? On Nepro. Spoke with the patient?s giuliana Gomez and Dilcia again today and updated them on condition and treatment plan.? Introduced possibility of tracheostomy.? We will have a family meeting tomorrow. Critical Care Time (minutes): 70 Physical Exam Vital Signs: Vital Signs: Last Vital Signs Temp 102.2 F H 11/26/21 13:00 Pulse 93 11/26/21 13:00 Resp 15 11/26/21 13:00 BP 154/65 H 11/26/21 13:00 Pulse Ox 94 11/26/21 13:00 O2 Del Method 11/26/21 13:00 FiO2 50 11/26/21 13:00 BMI result Body Mass Index 52.8 Objective Data Labs CBC & Chem 7: 11/26/21 05:10 11/26/21 05:10 Labs: Laboratory Results - last 24 hr 11/25/21 11/25/21 11/25/21 05:24 09:30 09:30 WBC RBC Hgb Hct MCV MCH MCHC RDW Plt Count MPV Absolute Nucleated RBC Nucleated RBC % (auto) VBG pH VBG pCO2 VBG pO2 VBG HCO3 VBG O2 Saturation VBG Base Excess Sodium Potassium Chloride Carbon Dioxide Anion Gap BUN Creatinine Estim Creat Clear Calc Estimated GFR POC Glucose Random Glucose Lactic Acid Uric Acid 7.9 H Calcium Phosphorus Magnesium Lactate Dehydrogenase 266 H Urine Color Urine Appearance Urine pH Ur Specific [place] Urine Protein Urine Glucose (UA) Urine Ketones Urine Blood Urine Nitrite Ur Leukocyte Esterase Urine RBC Urine WBC Ur Squamous Epith Cells Urine Bacteria Hyaline Casts Pleural Total Protein 2.0 Pleural LDH 117 Pleural Glucose 226 Pleural Amylase 11/25/21 11/25/21 11/25/21 09:30 14:40 14:57 WBC RBC Hgb Hct MCV MCH MCHC RDW Plt Count MPV Absolute Nucleated RBC Nucleated RBC % (auto) VBG pH VBG pCO2 VBG pO2 VBG HCO3 VBG O2 Saturation VBG Base Excess Sodium Potassium Chloride Carbon Dioxide Anion Gap BUN Creatinine Estim Creat Clear Calc Estimated GFR POC Glucose Random Glucose Lactic Acid 0.8 Uric Acid Calcium Phosphorus Magnesium Lactate Dehydrogenase Urine Color Yellow Urine Appearance Clear Urine pH 5.5 Ur Specific [place] 1.020 Urine Protein 30 (1+) H Urine Glucose (UA) Negative Urine Ketones Negative Urine Blood Negative Urine Nitrite Negative Ur Leukocyte Esterase Negative Urine RBC 3-5 H Urine WBC 0-5 Ur Squamous Epith Cells 0-2 Urine Bacteria None Seen Hyaline Casts 0-2 Pleural Total Protein Pleural LDH Pleural Glucose Pleural Amylase 56 11/25/21 11/26/21 11/26/21 18:26 00:05 05:10 WBC 20.8 H RBC 3.50 L Hgb 8.9 L Hct 28.4 L MCV 81.1 MCH 25.4 L MCHC 31.3 RDW 17.2 H Plt Count 283 MPV 11.8 Absolute Nucleated RBC 0.000 Nucleated RBC % (auto) 0.0 VBG pH VBG pCO2 VBG pO2 VBG HCO3 VBG O2 Saturation VBG Base Excess Sodium Potassium Chloride Carbon Dioxide Anion Gap BUN Creatinine Estim Creat Clear Calc Estimated GFR POC Glucose 248 H 251 H Random Glucose Lactic Acid Uric Acid Calcium Phosphorus Magnesium Lactate Dehydrogenase Urine Color Urine Appearance Urine pH Ur Specific [place] Urine Protein Urine Glucose (UA) Urine Ketones Urine Blood Urine Nitrite Ur Leukocyte Esterase Urine RBC Urine WBC Ur Squamous Epith Cells Urine Bacteria Hyaline Casts Pleural Total Protein Pleural LDH Pleural Glucose Pleural Amylase 11/26/21 11/26/21 11/26/21 05:10 05:12 05:49 WBC RBC Hgb Hct MCV MCH MCHC RDW Plt Count MPV Absolute Nucleated RBC Nucleated RBC % (auto) VBG pH 7.40 VBG pCO2 35 VBG pO2 46 VBG HCO3 22 VBG O2 Saturation 73.0 VBG Base Excess -1.8 Sodium 145 Potassium 3.2 L D Chloride 104 Carbon Dioxide 26 Anion Gap 18 BUN 69 H Creatinine 2.61 H Estim Creat Clear Calc 29.4 Estimated GFR 18 POC Glucose 254 H Random Glucose 273 H Lactic Acid Uric Acid Calcium 8.0 L Phosphorus 4.4 Magnesium 2.9 H Lactate Dehydrogenase Urine Color Urine Appearance Urine pH Ur Specific Bunch Urine Protein Urine Glucose (UA) Urine Ketones Urine Blood Urine Nitrite Ur Leukocyte Esterase Urine RBC Urine WBC Ur Squamous Epith Cells Urine Bacteria Hyaline Casts Pleural Total Protein Pleural LDH Pleural Glucose Pleural Amylase 11/26/21 12:21 WBC RBC Hgb Hct MCV MCH MCHC RDW Plt Count MPV Absolute Nucleated RBC Nucleated RBC % (auto) VBG pH VBG pCO2 VBG pO2 VBG HCO3 VBG O2 Saturation VBG Base Excess Sodium Potassium Chloride Carbon Dioxide Anion Gap BUN Creatinine Estim Creat Clear Calc Estimated GFR POC Glucose 254 H Random Glucose Lactic Acid Uric Acid Calcium Phosphorus Magnesium Lactate Dehydrogenase Urine Color Urine Appearance Urine pH Ur Specific [place] Urine Protein Urine Glucose (UA) Urine Ketones Urine Blood Urine Nitrite Ur Leukocyte Esterase Urine RBC Urine WBC Ur Squamous Epith Cells Urine Bacteria Hyaline Casts Pleural Total Protein Pleural LDH Pleural Glucose Pleural Amylase Microbiology Microbiology Results: Microbiology 11/25/21 09:30 Thoracentesis Fluid Gram Stain - Final 11/25/21 09:30 Thoracentesis Fluid Anaerobic Culture - Preliminary No growth to date. 11/25/21 09:30 Thoracentesis Fluid Body Fluid Culture - Preliminary No growth to date. 11/25/21 15:30 Sputum - Suctioned Gram Stain - Final 11/25/21 15:30 Sputum - Suctioned Sputum Culture - Preliminary No growth to date. 11/19/21 18:42 Blood - Venous Blood Culture - Final No growth after 5 days. 11/19/21 18:37 Blood - Venous Blood Culture - Final No growth after 5 days. 11/20/21 03:44 Sputum - Suctioned Gram Stain - Final 11/20/21 03:44 Sputum - Suctioned Sputum Culture - Final 11/20/21 Unknown Urine Catheterized - Turner Catheter Urine Culture - Final No growth. Quality Stroke Does the patient have a stroke diagnosis?: No VTE Prior VTE?: No VTE Risk Level:: Medical - moderate - high VTE Device Contraindication: Treatment Not Indicated VTE Drug Contraindication: N/A - Med Ordered Critical Care Time Critical Care Time (minutes): 60
[2021-11-26 13:09] LABS: Glucose, Whole Blood 290 mg/dL (60-115)
[2021-11-26 13:47] LABS: Anti Glomerular Basement Memb <1.0 AI; Myeloperoxidase Antibody <1.0 AI; Proteinase 3 PR3 Antibodies <1.0 AI
--- NOTE | 2021-11-26 15:12 | PC.NURSE ---
Assumed care at 3 AM, patient was on no sedation at that time or all day. She has pupils 4 mm bilaterally PERRL. Right eye noted to have crusty yellow exudate, was cleaned and noted to still have possible ptosis--discussed with MD. Patient seems to have weak (delayed) gag and cough, overbreathes vent, but no response to pain in all four extremities, and no movement of extremities all day, no following of commands. 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 Patient with diminished lung sounds, #8 ETT 24 cm PERLA, AC/VC settings with rate 16; TV 400; PEEP 10; FiO2 30%; Minute volumes about 8.6 - 9.2; EtCO2 around 36. Patient with minimal thin clear inline secretions, oral secretions moderate thin clear. Distant heart sounds. BP has been elevated, 150's systolic; MAP >65; some question of low diastolic BP 37-46 mm Hg at times, MD aware, and no intervention at this time. Patient grossly edematous +2 pitting in hands, +2 pitting in sacral area, brawny chronic edema in bilateral lower estremities, some slightly dusky appearance to left lower extremity, anterior chest with fine pink rash, MD aware, small (~0.5 cm) open area in excoriated patch under left breast and two similar small open areas of same size under left anterior abdominal fold. Sinus rhythm with BBB on telemetry with frequent PACs in a bigemony pattern in AM. K was 3.2 today, 40 MeQ OGT Klor per MD. BUN slightly trended up, Cre slightly trended down (2.61), MD aware; diet adjusted by dietitician and MD to increase rate of Nepro to 30 cc/hour and no H2O flushes and discontinued prosource. Small streak of BM brown color today. [place]into with about 75 cc/hour urine output, was dark, now is yellow. Patient family in today, updated by MD, and plan for family meeting tomorrow to discuss goals of care.
[2021-11-26 18:22] LABS: Glucose, Whole Blood 303 mg/dL (60-115)
[2021-11-26] MEDS: Lactated Ringers 1,000 ML 200 ML IV (18:29)
--- NOTE | 2021-11-26 20:56 | PM.PNNEP ---
Subjective Subjective Date of Service: 11/26/21 Interval history: Seen and examined, events noted Physical Exam Vital Signs: Vital Signs: Last Vital Signs Temp 101.2 F H 11/26/21 20:00 Pulse 90 11/26/21 20:53 Resp 16 11/26/21 20:53 BP 154/50 H 11/26/21 20:00 Pulse Ox 93 11/26/21 20:00 O2 Del Method 11/26/21 20:00 FiO2 30 11/26/21 20:51 BMI result Body Mass Index 52.8 Const: Other: Appearance: Lethargic, barely arousable Eyes: Pupils equal, round and reactive to light. ENT: Pharynx normal. Neck: Normal inspection. Neck supple. No lymph nodes noted. No crepitus CVS: Normal heart rate and rhythm. Pulses normal. Normal S1 and S2 Respiratory: In severe respiratory distress, mild wheezing, barely audible breath sounds Abdomen: Soft and nontender. No rigidity. No distention. Skin: Skin warm and dry. Normal skin color. Normal skin turgor. Extremities: No lower extremity edema. No Lacerations. No Rash Neuro: Very lethargic, unable to participate in cranial nerve assessment Psych: Lethargic General: no acute distress and other ( sedated on the vent arousable with sedation vacation) Nutritional Appearance: obese and Edematous Eyes: Sclerae: sclerae normal EOM: EOMs intact bilaterally Neck: Neck: Yes no lymphadenopathy, Yes trachea midline and Yes supple Resp: Auscultation: crackles ( bilateral) Cardio: Rate: regular rate Rhythm: regular rhythm Heart sounds: no gallops, no murmurs and no rubs GI: Palpation (GI): Soft to palpation and Other GI palpation findings present ( Nontender) Auscultation: normal bowel sounds Extrem: General: Yes no pedal edema, No clubbing, No cyanosis and Yes edema ( 2+ bilateral) Objective Data Labs CBC & Chem 7: 11/26/21 05:10 11/26/21 05:10 Labs: Laboratory Results - last 24 hr 11/23/21 11/25/21 11/25/21 14:23 09:30 09:30 WBC RBC Hgb Hct MCV MCH MCHC RDW Plt Count MPV Absolute Nucleated RBC Nucleated RBC % (auto) VBG pH VBG pCO2 VBG pO2 VBG HCO3 VBG O2 Saturation VBG Base Excess Sodium Potassium Chloride Carbon Dioxide Anion Gap BUN Creatinine Estim Creat Clear Calc Estimated GFR POC Glucose Random Glucose Calcium Phosphorus Magnesium Pleural Total Protein 2.0 Pleural LDH 117 Pleural Glucose 226 Pleural Amylase Proteinase 3 (PR3) Ab <1.0 Myeloperoxidase Ab <1.0 Glomerular Base Memb Ab <1.0 11/25/21 11/26/21 11/26/21 09:30 00:05 05:10 WBC 20.8 H RBC 3.50 L Hgb 8.9 L Hct 28.4 L MCV 81.1 MCH 25.4 L MCHC 31.3 RDW 17.2 H Plt Count 283 MPV 11.8 Absolute Nucleated RBC 0.000 Nucleated RBC % (auto) 0.0 VBG pH VBG pCO2 VBG pO2 VBG HCO3 VBG O2 Saturation VBG Base Excess Sodium Potassium Chloride Carbon Dioxide Anion Gap BUN Creatinine Estim Creat Clear Calc Estimated GFR POC Glucose 251 H Random Glucose Calcium Phosphorus Magnesium Pleural Total Protein Pleural LDH Pleural Glucose Pleural Amylase 56 Proteinase 3 (PR3) Ab Myeloperoxidase Ab Glomerular Base Memb Ab 11/26/21 11/26/21 11/26/21 05:10 05:12 05:49 WBC RBC Hgb Hct MCV MCH MCHC RDW Plt Count MPV Absolute Nucleated RBC Nucleated RBC % (auto) VBG pH 7.40 VBG pCO2 35 VBG pO2 46 VBG HCO3 22 VBG O2 Saturation 73.0 VBG Base Excess -1.8 Sodium 145 Potassium 3.2 L D Chloride 104 Carbon Dioxide 26 Anion Gap 18 BUN 69 H Creatinine 2.61 H Estim Creat Clear Calc 29.4 Estimated GFR 18 POC Glucose 254 H Random Glucose 273 H Calcium 8.0 L Phosphorus 4.4 Magnesium 2.9 H Pleural Total Protein Pleural LDH Pleural Glucose Pleural Amylase Proteinase 3 (PR3) Ab Myeloperoxidase Ab Glomerular Base Memb Ab 11/26/21 11/26/21 11/26/21 12:21 13:04 18:19 WBC RBC Hgb Hct MCV MCH MCHC RDW Plt Count MPV Absolute Nucleated RBC Nucleated RBC % (auto) VBG pH VBG pCO2 VBG pO2 VBG HCO3 VBG O2 Saturation VBG Base Excess Sodium Potassium Chloride Carbon Dioxide Anion Gap BUN Creatinine Estim Creat Clear Calc Estimated GFR POC Glucose 254 H 290 H 303 H Random Glucose Calcium Phosphorus Magnesium Pleural Total Protein Pleural LDH Pleural Glucose Pleural Amylase Proteinase 3 (PR3) Ab Myeloperoxidase Ab Glomerular Base Memb Ab Microbiology Microbiology Results: Microbiology 11/25/21 14:57 Blood - Venous Blood Culture - Preliminary No growth after 24 hours. 11/25/21 14:57 Blood - Venous Blood Culture - Preliminary No growth after 24 hours. 11/25/21 09:30 Thoracentesis Fluid Gram Stain - Final 11/25/21 09:30 Thoracentesis Fluid Anaerobic Culture - Preliminary No growth to date. 11/25/21 09:30 Thoracentesis Fluid Body Fluid Culture - Preliminary No growth to date. 11/25/21 15:30 Sputum - Suctioned Gram Stain - Final 11/25/21 15:30 Sputum - Suctioned Sputum Culture - Preliminary No growth to date. 11/19/21 18:42 Blood - Venous Blood Culture - Final No growth after 5 days. 11/19/21 18:37 Blood - Venous Blood Culture - Final No growth after 5 days. 11/20/21 03:44 Sputum - Suctioned Gram Stain - Final 11/20/21 03:44 Sputum - Suctioned Sputum Culture - Final 11/20/21 Unknown Urine Catheterized - Turner Catheter Urine Culture - Final No growth. Procedures Date of Service Date of Service: 11/26/21 Assessment & Plan Assessment and plan (1) Acute respiratory failure with hypoxia: Status: Acute (2) Pneumonia: Status: Acute (3) Acute exacerbation of congestive heart failure: Status: Acute (4) LEO (acute kidney injury): Status: Acute (5) Obesity: Status: Acute (6) Hypothyroidism: Status: Acute (7) HTN (hypertension): Status: Acute (8) Diabetes mellitus with insulin therapy: Status: Acute Plan 1. OLiguric--> Non-Oliguric LEO: c/w multifact ATN depeite FENa < 1%; SCr slt decr so can cont to hold of on ORTHOTIC/PROSTHETIC PRACTITIONER 2. CKD 3: BL SCr 1.4-1.7 3. Hypoxic Resp fauilure; Pneumonia >> CHF 4. HypoK: replace K REC: replace K; cont lasix drip; no indication for ORTHOTIC/PROSTHETIC PRACTITIONER yet; track renal func and UOP; avoid NToxins will follow with team Time Spent With Patient Time: Total time spent is greater than 50% in coordination of care (as documented) at patient's floor/unit and/or counseling patient: Progress Note: Quality Stroke Does the patient have a stroke diagnosis?: No
[2021-11-26 21:19] LABS: Glucose, Whole Blood 287 mg/dL (60-115)
[2021-11-26] MEDS: Insulin Glargine,Hum.rec.anlog 100 UNIT/ML 10 ML VIAL 25 UNIT SUBCUT (21:50)
[2021-11-27] VITALS (39 sets, daily range): BP systolic 125–172; BP diastolic 45–73; PULSE 75–92; RESP 12–25; TEMP 34.6–38.6; O2SAT 92–98; BMI 55.3
[2021-11-27 00:04] LABS: Glucose, Whole Blood 284 mg/dL (60-115)
[2021-11-27] MEDS: Albuterol/Iprat 2.5/0.5MG 3 ML AMPUL.NEB INHALE ×7 (00:21→23:29)
[2021-11-27] MEDS: Insulin Lispro 100 UNIT/ML 3 ML VIAL SUBCUT ×5 (00:22→23:42)
[2021-11-27 05:32] LABS: Hematocrit 28.2 % (37.0-47.0); Hemoglobin 8.8 g/dl (12.0-16.0); Mean Corpuscular HGB Conc 31.2 g/dl (31.0-35.0); Mean Corpuscular Hemoglobin 26.2 pg (27.0-33.0); Mean Corpuscular Volume 83.9 fL (80.0-98.0); Mean Platelet Volume 11.6 fL (9.4-12.3); Platelet Count 245 X10*3/uL (160-400); Red Blood Count 3.36 X10*6/uL (4.20-5.50); Red Cell Distribution Width 17.8 % (11.0-16.0); White Blood Count 20.1 X10*3/uL (4.8-10.8)
[2021-11-27 05:33] LABS: Glucose, Whole Blood 283 mg/dL (60-115)
[2021-11-27 05:38] LABS: Venous Blood Gas Refer to POC result
[2021-11-27] MEDS: Heparin Sodium,Porcine 5,000 UNIT/ML VIAL 5000 UNIT SUBCUT ×3 (05:44→23:29)
[2021-11-27 05:47] LABS: Anion Gap 15 (12-20); Blood Urea Nitrogen 68 mg/dL (9-16); Carbon Dioxide 28 mmol/L (22-29); Chloride 107 mmol/L (96-108); Creatinine Clr Calc Pharmacy 35.9; Estimated Glomerular Filt Rate 23; Glucose Random 316 mg/dL (60-115); Potassium 3.1 mmol/L (3.3-5.1); Sodium 147 mmol/L (135-145)
[2021-11-27 05:51] LABS: B Type Natriuretic Peptide 1410 pg/mL (<100)
--- NOTE | 2021-11-27 06:40 | MHC.PIE ---
Core temperature 98.9 . Cooling blanket turned off . VSS , will continue to monitor.
[2021-11-27 08:43] LABS: VBG Base Excess 2.6 mmol/L; VBG HCO3 27 mmol/L (22-26); VBG pCO2 41 mmHg; VBG pH 7.42 (7.32-7.43); VBG pO2 40 mmHg
[2021-11-27] MEDS: Potassium Chloride Packet 20 MEQ PACKET 40 MEQ PO (08:56)
[2021-11-27] MEDS: Insulin Glargine,Hum.rec.anlog 100 UNIT/ML 10 ML VIAL 35 UNIT SUBCUT ×2 (09:57→21:21)
[2021-11-27] MEDS: HYDROmorphone HCl 0.5 MG/0.5 ML SYRINGE IVPUSH (10:00)
[2021-11-27] MEDS: Nystatin Powder 15 GM BOTTLE 1 APPL TOPICAL ×2 (10:07→21:23)
[2021-11-27] MEDS: Chlorhexidine Gluc Oral Rinse 15 ML MOUTHWASH BUCCAL ×3 (10:07→21:21)
--- NOTE | 2021-11-27 11:13 | MHC.CLN ---
F/U PT IS INTUBATED. NO PROPOFOL. DISCUSSED WITH TEAM AT ROUNDS. LABS REVIEWED. TOLERATING CURRENT TUBE FEEDING. NEPRO AT MAX GOAL RATE OF 30 ML PER HOUR. PROVIDES: 1296 KCALS (22.8 G/KG IBW); 58 G PROTEIN (1.02 G/KG IBW), 523 ML FREE WATER FROM FORMULA. MONITOR TOLERANCE, RESIDUALS, AND LYTES.
--- NOTE | 2021-11-27 11:21 | PM.CCPN ---
Subjective Subjective Date of Service: 11/27/21 Interval History: Mrs. Toney was admitted to ICU on November 19 with acute respiratory failure. The patient is a 71-year-old female with the following past medical history: Supermorbid obesity (5?5?, 148kg) DM on insulin HLD HTN CKD - baseline 23/04.4 Hypothyroidism Lower extremity edema Migraine Pseudotumor cerebri PVD Strokes x 2 (according to the niece). She is not normally on oxygen at home.? There is no prior h/o COPD or CHF.? There are no previous blood gases in the chart, but her serum bicarb levels run borderline high.? Prior echo in 2016 was technically difficult, showed normal LV size and systolic function; the right ventricle was unable to be visualized; there was mild to moderate mitral stenosis.? According to the niece, at baseline she had significant ELIAS, even walking across the room to the bathroom. S/P COVID:? On October 08, 2021, the patient was admitted to [facility] bec of severe hypoglycemia.? Sat was 98% on 2 L.? COVID EDNY was negative.? Chest CT showed mild chronic interstitial disease with no evidence of pneumonia.? She had significant mediastinal lymphadenopathy the largest node in the paracarinal area measuring 3 cm.? She also had large axillary lymph nodes, the largest one on the right measuring 2 cm. Because a household member tested positive for COVID, the patient was retested on October 10 and COVID DENY was positive.? At that time, sat was 97% on 4 L nasal cannula.? She was treated with 5 days of remdesivir and 6 days of dexamethasone.? She was discharged to home on October 16 on 3L NC oxygen and four more days of dexamethasone.? She had been using the oxygen at home since then. Functional status:? According to the family, the patient has always been one to stay at home, rarely left the house.? She has not driven a car in many years.? She currently lives in her own home and a daughter and a couple of grandsons live with her.? She is independent with her ADLs and mostly walks unaided but sometimes uses a walker.? She spends most of the day in an easy chair and sleeps in the chair also. MEDS at home included amlodipine, insulin, aspirin, Lasix 40 mg bid, thyroid, and Januvia, along with amitriptyline, Librium, citalopram, and clonazepam. HISTORY OF PRESENT ILLNESS: On November 19, she was BIBA to the ED with a one day h/o progressive SOB.? On arrival to the emergency room, the patient was barely conscious, in respiratory distress.? The patient was intubated immediately.? She was not hypotensive, and sat was up to 100% on 40% FiO2 on the ventilator.? White count was 16, hemoglobin was 10, D-dimer was 578, BUN creatinine were 20/1.2, bicarb 23, glucose 199, LFTs were normal, BNP was 304, troponin was 21 with follow-up 48, albumin was 3.2, TSH was 1.8, lactic acid was 1.8.? COVID DENY was negative. Chest x-ray showed low lung volumes with diffuse bilateral patchy infiltrates, with bilateral effusions.? CTPA showed no pulmonary emboli.? There was occlusion of the left lower lobe bronchus with near complete consolidation of the left lower lobe, along with significant lingula and right lower lobe and right middle lobe consolidation.? There were moderate right and small left pleural effusions.? The heart was enlarged.? There was significant mediastinal lymphadenopathy.? On abdominal CT, the kidneys were normal.? [employer] shunt tubing was noted to terminate in the lower quadrant.? Prominent retroperitoneal lymph nodes and prominent right inguinal lymph nodes measured up to 4.5 cm. The patient was started on empiric broad-spectrum antibiotics and admitted to the ICU.? Presumptive diagnoses included possible pneumonia and CHF.? She was diuresed with a Lasix drip for one day, and continued on Zosyn.? Blood cultures were negative; sputum Gram stain showed 3+ polys with light Gram-positive cocci and yeast; the culture grew mixed respiratory maggie. Echocardiogram on November 20 was technically difficult.? LV cavity size was normal with mild LVH.? LV function was hyperdynamic, with EF greater than 70%.? RV cavity size was mildly increased with borderline RV systolic function.? The left atrium was severely dilated; the right atrium was normal.? There was mild and mild MR.? The TR envelope was inadequate for calculation of RVSP.? The IVC was dilated with no inspiratory collapse. Chest CT was repeated on 11/23.? It showed moderate bilateral pleural effusions, right larger than left, similar to the prior CT.? The entire left lower lobe and lingula were completely opacified, and there was partial opacification of the right middle and lower lobes and posterior upper lobes.? Because of the question of lobar collapse, the patient underwent bronchoscopy, which was completely normal:? The entire bronchial tree was clean except for a small amount of thin clear secretions.? There was no erythema or purulence.? There was no tracheobronchitis.? No endobronchial lesions or other phenomena that might cause bronchial obstruction and lobar collapse was found.? Because of the lack of any evidence of infection on bronchoscopy, antibiotics were discontinued last night In view of her low urine Na on 11/23, we gave her a liter of IVF.? That arrested the rise in her creatinine, altho her BUN is still rising slowly.? On 11/25, she underwent right thoracentesis (800cc), and right inguinal lymph node biopsy, both by Dr. Painting at the bedside.? Subsequently her oxygenation and ventilation significantly improved. ?We gave her another liter of IVF last night. The propofol and fentanyl have been off for > 48 hours, and we?re waiting for her to wake up.? Today, she?s inconsistently opening eyes to stimulation, and moving her arms and legs a little, but no clear purposeful interactions.? Levophed is off.? HR 79, SR.? BP 157/64.? She?s been on PSV all day:? On PSV 18/28%/+8, RR is 18, Vt 400cc, Ve 6L, PIP 27cm, ETCO2 44mm, Sat 95%.? CVBG this morning 7.42/41/+2.? Tmax is down to 101.4? early this morning, but she?s been afebrile all day.? No JVD.? Chest is CTA, w normal exp phase.? Heart tones are soft, I heard no murmur or gallops.? The abdomen is obese and benign, with a very large panus.? She has 2+ pretibial edema; it?s impossible to gauge central edema.? Probably has anasarca. 24 hr u/o up to 2135 cc. The patient underwent a left thoracentesis today for 400cc. CXR post-procedure:? Perihilar and lower lobe airspace disease -- no change from previous films. LABORATORY DATA:? Below.? Notably, white count is steady at 20. ?BUN steady 68, creat is down to 2.1, after the fluids.? Bicarb is up to 28, potassium is 3.1, POCs are in the 280s. IMPRESSION: 1. Underlying super morbid obesity 2. Possible underlying obesity hypoventilation syndrome, with chronic hypercarbia. 3. Bilat, multilobar collapse or consolidation, of undetermined etiology.? Not likely pneumonia -- a pneumonia to this degree of consolidation would likely cause much, much more toxicity and much more severe hypoxemia.? Furthermore, there was no anticedant h/o toxicity or fever.? Lastly, the bronchoscopy was clean, no purulence 4. Acute respiratory failure.? Likely 2? to above multilobar collapse.? (At this time, I see no relation to her COVID episode.)? The etiology of her multilobar collapse is still unclear.? Could be atelectasis 2? the pleural effusions.? Since the right thoracentesis, her oxygenation has definitely improved.? So we did the left side today.? The overarching determinant of her current resp failure though is her mental status.? She?s not going anywhere until she wakes up. 5. Wheezing.? Resolved with BD?s and 24 hrs of steroids.? Might well have some level of CLD. 6. CHF -- based in the least on her CXR, BNP, and thoracentesis results.? If she has CHF, it?s likely diastolic ddx, not systolic, based on the echo.? But diuresis made her renal indices rise further.? In contrast, IV fluids made her u/o improve and her creatinine better.? That indicates that she has RHF. 7. Right heart failure, according to her size and the echo.? Furthermore, the urine Na and the rising renal indices with diuresis, and improvement with IV fluids are pathognomonic of cardiorenal syndrome.? We?ve improved her renal indices by giving her fluids.? She has more edema now.? Time to diurese. 8. Underlying CKD.? Probably 2? RHF. 9. Acute kidney injury.? Likely 2? RHF/cardiorneal syndrome, as noted above.? Start Lasix at 10 mg/hr. 10. Underlying DM.? On Lantus and sliding scale insulin.? Increase Lantus dose to 35 units bid. 11. ID:? Evidence of pneumonia is lacking.? Abx were d/c?d.? New fever last few days.? Nothing grew on panculture.? Pleural fluid gram stain, cell count, and chemistries are negative; the fluid was transudative. 12. Mediastinal, axillary, abdominal, and ?lymphadenopathy.? LN biopsy and flow cytometry was negative.? Waiting for cytology from pleural fluid. 13. Neuropsych.? Very slow to wake up.? Likely had a ?bad brain? to begin with 2? strokes and pseudotumor cerebri.? No need for CT scan at this time. 14. Nutrition.? On Nepro. Had a 45 minute conference with family today.? I noted that the main issue right now is her mental status -- she cannot do anything into she wakes up.? Another major concern is her right heart failure -- especially when combined with her respiratory failure and renal failure, that carries a high mortality rate in ICU patients.? Finally, her size and poor functional status make for an enormously difficult, burdensome recovery that she might have a very unpleasant time with.? The question is, would she want that.? It was clear to all the family members that she would not.? At the end of the conference I noted to the family that either way, she was not going to do well.? They appreciated my saying so.? Their plan is to evaluate how things go over the next 2 days and then decide on whether to continue or go with comfort measures. Critical care time:? 90+ min. Critical Care Time (minutes): 90 Physical Exam Vital Signs: Vital Signs: Last Vital Signs Temp 97.6 F 11/27/21 11:00 Pulse 76 11/27/21 11:00 Resp 12 11/27/21 11:00 BP 148/59 H 11/27/21 11:00 Pulse Ox 94 11/27/21 11:00 O2 Del Method 11/27/21 11:00 FiO2 30 11/27/21 11:00 BMI result Body Mass Index 55.3 Objective Data Labs CBC & Chem 7: 11/27/21 05:15 11/27/21 05:15 Labs: Laboratory Results - last 24 hr 11/23/21 11/26/21 11/26/21 14:23 12:21 13:04 WBC RBC Hgb Hct MCV MCH MCHC RDW Plt Count MPV Absolute Nucleated RBC Nucleated RBC % (auto) VBG pH VBG pCO2 VBG pO2 VBG HCO3 VBG O2 Saturation VBG Base Excess Sodium Potassium Chloride Carbon Dioxide Anion Gap BUN Creatinine Estim Creat Clear Calc Estimated GFR POC Glucose 254 H 290 H Random Glucose Calcium Phosphorus B-Natriuretic Peptide Albumin Proteinase 3 (PR3) Ab <1.0 Myeloperoxidase Ab <1.0 Glomerular Base Memb Ab <1.0 11/26/21 11/26/21 11/27/21 18:19 21:12 00:00 WBC RBC Hgb Hct MCV MCH MCHC RDW Plt Count MPV Absolute Nucleated RBC Nucleated RBC % (auto) VBG pH VBG pCO2 VBG pO2 VBG HCO3 VBG O2 Saturation VBG Base Excess Sodium Potassium Chloride Carbon Dioxide Anion Gap BUN Creatinine Estim Creat Clear Calc Estimated GFR POC Glucose 303 H 287 H 284 H Random Glucose Calcium Phosphorus B-Natriuretic Peptide Albumin Proteinase 3 (PR3) Ab Myeloperoxidase Ab Glomerular Base Memb Ab 11/27/21 11/27/21 11/27/21 05:15 05:15 05:15 WBC 20.1 H RBC 3.36 L Hgb 8.8 L Hct 28.2 L MCV 83.9 MCH 26.2 L MCHC 31.2 RDW 17.8 H Plt Count 245 MPV 11.6 Absolute Nucleated RBC 0.000 Nucleated RBC % (auto) 0.0 VBG pH VBG pCO2 VBG pO2 VBG HCO3 VBG O2 Saturation VBG Base Excess Sodium 147 H Potassium 3.1 L Chloride 107 Carbon Dioxide 28 Anion Gap 15 BUN 68 H Creatinine 2.11 H Estim Creat Clear Calc 35.9 Estimated GFR 23 POC Glucose Random Glucose 316 H Calcium 8.0 L Phosphorus 3.0 B-Natriuretic Peptide 1410 H Albumin 3.0 L Proteinase 3 (PR3) Ab Myeloperoxidase Ab Glomerular Base Memb Ab 11/27/21 11/27/21 05:27 05:30 WBC RBC Hgb Hct MCV MCH MCHC RDW Plt Count MPV Absolute Nucleated RBC Nucleated RBC % (auto) VBG pH 7.42 VBG pCO2 41 VBG pO2 40 VBG HCO3 27 H VBG O2 Saturation 64.0 VBG Base Excess 2.6 Sodium Potassium Chloride Carbon Dioxide Anion Gap BUN Creatinine Estim Creat Clear Calc Estimated GFR POC Glucose 283 H Random Glucose Calcium Phosphorus B-Natriuretic Peptide Albumin Proteinase 3 (PR3) Ab Myeloperoxidase Ab Glomerular Base Memb Ab Microbiology Microbiology Results: Microbiology 11/25/21 09:30 Thoracentesis Fluid Gram Stain - Final 11/25/21 09:30 Thoracentesis Fluid Anaerobic Culture - Preliminary No growth to date. 11/25/21 09:30 Thoracentesis Fluid Body Fluid Culture - Final No growth after 2 days 11/25/21 15:30 Sputum - Suctioned Gram Stain - Final 11/25/21 15:30 Sputum - Suctioned Sputum Culture - Final 11/25/21 14:57 Blood - Venous Blood Culture - Preliminary No growth after 24 hours. 11/25/21 14:57 Blood - Venous Blood Culture - Preliminary No growth after 24 hours. 11/19/21 18:42 Blood - Venous Blood Culture - Final No growth after 5 days. 11/19/21 18:37 Blood - Venous Blood Culture - Final No growth after 5 days. 11/20/21 03:44 Sputum - Suctioned Gram Stain - Final 11/20/21 03:44 Sputum - Suctioned Sputum Culture - Final 11/20/21 Unknown Urine Catheterized - Turner Catheter Urine Culture - Final No growth. Quality Stroke Does the patient have a stroke diagnosis?: No VTE Prior VTE?: No VTE Risk Level:: Medical - moderate - high VTE Device Contraindication: Treatment Not Indicated VTE Drug Contraindication: N/A - Med Ordered Critical Care Time Critical Care Time (minutes): 90
--- NOTE | 2021-11-27 11:21 | MHC.CM.PN ---
Pt continues care in ICU: vented and on a sedation vacation with some MS improvement. Pt remains fragile - SNF referrals have been placed. Pt will need a new HCP once she is able to communicate as her present one is not valid. CM to follow for finalization of d/c needs
[2021-11-27 12:01] LABS: Glucose, Whole Blood 301 mg/dL (60-115)
--- NOTE | 2021-11-27 13:43 | HO.RADPN ---
RADIOLOGY Narrative Narrative: Left thoracentesis performed using 4 fr catheter. 400 clear camila colored fluid removed. CXR pending.
[2021-11-27] MEDS: Lidocaine HCl 1 % MPF 5 ML VIAL 2 ML SUBCUT (14:04)
[2021-11-27 14:35] LABS: MN% 90.9 %; PMN% 9.1 %; RBC Pleural Fluid 0.008 X10*3/uL; WBC Pleural Fluid 0.918 X10*3/uL
[2021-11-27 15:16] LABS: BF Shift QC OK YES; Eosinophils Pleural Fluid 2 %; Lymphocytes Pleural Fluid 71 %; Monocytes Pleural Fluid 1 %; Neutrophils Pleural Fluid 7 %; Other Cells Plerual Fl 19 %
[2021-11-27] MEDS: Furosemide 40 MG/4 ML VIAL IVPUSH (18:10)
[2021-11-27] MEDS: Furosemide 200 MG in 0.9 % Sodium Chloride 80 ML IVCONT (18:10)
[2021-11-27 18:11] LABS: Glucose, Whole Blood 279 mg/dL (60-115)
--- NOTE | 2021-11-27 19:25 | PM.PNNEP ---
Subjective Subjective Date of Service: 11/27/21 Interval history: Seen and examined, events noted Physical Exam Vital Signs: Vital Signs: Last Vital Signs Temp 100.0 F 11/27/21 19:00 Pulse 88 11/27/21 19:00 Resp 21 H 11/27/21 19:00 BP 161/62 H 11/27/21 19:00 Pulse Ox 95 11/27/21 19:00 O2 Del Method 11/27/21 19:00 FiO2 30 11/27/21 19:00 BMI result Body Mass Index 55.3 Const: Other: Appearance: Lethargic, barely arousable Eyes: Pupils equal, round and reactive to light. ENT: Pharynx normal. Neck: Normal inspection. Neck supple. No lymph nodes noted. No crepitus CVS: Normal heart rate and rhythm. Pulses normal. Normal S1 and S2 Respiratory: In severe respiratory distress, mild wheezing, barely audible breath sounds Abdomen: Soft and nontender. No rigidity. No distention. Skin: Skin warm and dry. Normal skin color. Normal skin turgor. Extremities: No lower extremity edema. No Lacerations. No Rash Neuro: Very lethargic, unable to participate in cranial nerve assessment Psych: Lethargic General: no acute distress and other ( sedated on the vent arousable with sedation vacation) Nutritional Appearance: obese and Edematous Eyes: Sclerae: sclerae normal EOM: EOMs intact bilaterally Neck: Neck: Yes no lymphadenopathy, Yes trachea midline and Yes supple Resp: Auscultation: crackles ( bilateral) Cardio: Rate: regular rate Rhythm: regular rhythm Heart sounds: no gallops, no murmurs and no rubs GI: Palpation (GI): Soft to palpation and Other GI palpation findings present ( Nontender) Auscultation: normal bowel sounds Extrem: General: Yes no pedal edema, No clubbing, No cyanosis and Yes edema ( 2+ bilateral) Objective Data Labs CBC & Chem 7: 11/27/21 05:15 11/27/21 05:15 Labs: Laboratory Results - last 24 hr 11/26/21 11/27/21 11/27/21 21:12 00:00 05:15 WBC 20.1 H RBC 3.36 L Hgb 8.8 L Hct 28.2 L MCV 83.9 MCH 26.2 L MCHC 31.2 RDW 17.8 H Plt Count 245 MPV 11.6 Absolute Nucleated RBC 0.000 Nucleated RBC % (auto) 0.0 VBG pH VBG pCO2 VBG pO2 VBG HCO3 VBG O2 Saturation VBG Base Excess Sodium Potassium Chloride Carbon Dioxide Anion Gap BUN Creatinine Estim Creat Clear Calc Estimated GFR POC Glucose 287 H 284 H Random Glucose Calcium Phosphorus B-Natriuretic Peptide Albumin Pleural WBC Pleural RBC Pleural Neutrophils Pleural Lymphocytes Pleural Monocytes Pleural Eosinophils Pleural Other Cells 11/27/21 11/27/21 11/27/21 05:15 05:15 05:27 WBC RBC Hgb Hct MCV MCH MCHC RDW Plt Count MPV Absolute Nucleated RBC Nucleated RBC % (auto) VBG pH 7.42 VBG pCO2 41 VBG pO2 40 VBG HCO3 27 H VBG O2 Saturation 64.0 VBG Base Excess 2.6 Sodium 147 H Potassium 3.1 L Chloride 107 Carbon Dioxide 28 Anion Gap 15 BUN 68 H Creatinine 2.11 H Estim Creat Clear Calc 35.9 Estimated GFR 23 POC Glucose Random Glucose 316 H Calcium 8.0 L Phosphorus 3.0 B-Natriuretic Peptide 1410 H Albumin 3.0 L Pleural WBC Pleural RBC Pleural Neutrophils Pleural Lymphocytes Pleural Monocytes Pleural Eosinophils Pleural Other Cells 11/27/21 11/27/21 11/27/21 05:30 11:54 13:49 WBC RBC Hgb Hct MCV MCH MCHC RDW Plt Count MPV Absolute Nucleated RBC Nucleated RBC % (auto) VBG pH VBG pCO2 VBG pO2 VBG HCO3 VBG O2 Saturation VBG Base Excess Sodium Potassium Chloride Carbon Dioxide Anion Gap BUN Creatinine Estim Creat Clear Calc Estimated GFR POC Glucose 283 H 301 H Random Glucose Calcium Phosphorus B-Natriuretic Peptide Albumin Pleural WBC 0.918 Pleural RBC 0.008 Pleural Neutrophils 7 Pleural Lymphocytes 71 Pleural Monocytes 1 Pleural Eosinophils 2 Pleural Other Cells 19 11/27/21 18:03 WBC RBC Hgb Hct MCV MCH MCHC RDW Plt Count MPV Absolute Nucleated RBC Nucleated RBC % (auto) VBG pH VBG pCO2 VBG pO2 VBG HCO3 VBG O2 Saturation VBG Base Excess Sodium Potassium Chloride Carbon Dioxide Anion Gap BUN Creatinine Estim Creat Clear Calc Estimated GFR POC Glucose 279 H Random Glucose Calcium Phosphorus B-Natriuretic Peptide Albumin Pleural WBC Pleural RBC Pleural Neutrophils Pleural Lymphocytes Pleural Monocytes Pleural Eosinophils Pleural Other Cells Microbiology Microbiology Results: Microbiology 11/25/21 14:57 Blood - Venous Blood Culture - Preliminary No growth after 48 hours. 11/25/21 14:57 Blood - Venous Blood Culture - Preliminary No growth after 48 hours. 11/27/21 13:49 Thoracentesis Fluid Gram Stain - Final 11/25/21 09:30 Thoracentesis Fluid Gram Stain - Final 11/25/21 09:30 Thoracentesis Fluid Anaerobic Culture - Preliminary No growth to date. 11/25/21 09:30 Thoracentesis Fluid Body Fluid Culture - Final No growth after 2 days 11/25/21 15:30 Sputum - Suctioned Gram Stain - Final 11/25/21 15:30 Sputum - Suctioned Sputum Culture - Final 11/19/21 18:42 Blood - Venous Blood Culture - Final No growth after 5 days. 11/19/21 18:37 Blood - Venous Blood Culture - Final No growth after 5 days. 11/20/21 03:44 Sputum - Suctioned Gram Stain - Final 11/20/21 03:44 Sputum - Suctioned Sputum Culture - Final 11/20/21 Unknown Urine Catheterized - Turner Catheter Urine Culture - Final No growth. Procedures Date of Service Date of Service: 11/27/21 Assessment & Plan Assessment and plan (1) LEO (acute kidney injury): Status: Acute Plan 1. Oliguric LEO--> Non-oligurica LEO: c/w mutlifact ATN 2. CKD 3:BL Scr 1.4-1.7 3. Resp failure 4. HyperNa and hypoK: getting replaced with FWater and K respectively REC: cont to track rnal fnc/UOP; no idincation for CHILD DEVELOPMENT INSTRUCTOR at this point; replace FW deficit and K Will follow clsoley with team Time Spent With Patient Time: Total time spent is greater than 50% in coordination of care (as documented) at patient's floor/unit and/or counseling patient: Progress Note: Quality Stroke Does the patient have a stroke diagnosis?: No
--- NOTE | 2021-11-27 20:03 | PC.NURSE ---
Assumed care at 7 AM, patient off all sedation all day. She has pupils 4 mm bilaterally PERRL. Improved neurological assessment with withdrawal to pain in LUE, and BLE, following commands by wiggling toes to commands and blinking to command. No head CT today per MD. Patient with Left posterior thoracentesis today, 450 ccs of camila colored fluid removed by Dr. Painting. pH of thoracentesis clotted per lab. Patient tolerated procedure well, stable vital signs. Patient with some nonverbal signs of pain today, such as furrowed brow and elevated BP, discussed with MD and one time dose of dilaudid given with good effect, patient continues to have have improved responsiveness. Patient seems to have weak (delayed) gag and cough. Patient with diminished lung sounds, #8 ETT 24 cm PERLA, sudhir changed by RT today, PSV settings 18/8 28% today, well tolerated, copious inline creamy secretions, RT lavagged with good effect. No repeat sputum at this time per MD. Distant heart sounds. BP has been elevated, 150's - 160's at times systolic. Patient grossly edematous +2 pitting in hands, +2 pitting in sacral area, brawny chronic edema in bilateral lower extremities, some slightly dusky appearance to left lower extremity, anterior chest with fine pink rash, MD aware, small (~0.5 cm) open area in excoriated patch under left breast and two similar small open areas of same size under left anterior abdominal fold. Sinus rhythm with BBB on telemetry. K was 3.1 today, 40 MeQ OGT Klor per MD. Cre slightly trended down (2.11). 40 mg IV lasix followed by Lasix gtt started today. No BM, reported to MD. Turner with about 100 cc/hour urine output, was dark, now is yellow. Family meeting today.
[2021-11-27 23:40] LABS: Glucose, Whole Blood 282 mg/dL (60-115)
[2021-11-27 23:54] LABS: Glucose, Whole Blood 282 mg/dL (60-115)
[2021-11-28] VITALS (33 sets, daily range): BP systolic 125–189; BP diastolic 40–86; PULSE 69–95; RESP 12–21; TEMP 34.6–39.1; O2SAT 94–100; BMI 52.2
[2021-11-28 01:25] LABS: Glucose Pleural Fluid 316 MG/DL; Total Protein Pleural Fluid 1.5 GM/DL
[2021-11-28] MEDS: Acetaminophen Oral Liquid 650 MG/20.3 ML SOLUTION PO (01:41)
[2021-11-28] MEDS: Albuterol/Iprat 2.5/0.5MG 3 ML AMPUL.NEB INHALE ×5 (05:11→20:26)
[2021-11-28 05:19] LABS: VBG Base Excess 10.2 mmol/L; VBG HCO3 33 mmol/L (22-26); VBG pCO2 40 mmHg; VBG pH 7.53 (7.32-7.43); VBG pO2 44 mmHg
[2021-11-28 05:38] LABS: Hematocrit 30.1 % (37.0-47.0); Hemoglobin 9.2 g/dl (12.0-16.0); Mean Corpuscular HGB Conc 30.6 g/dl (31.0-35.0); Mean Corpuscular Hemoglobin 25.3 pg (27.0-33.0); Mean Corpuscular Volume 82.9 fL (80.0-98.0); Mean Platelet Volume 12.2 fL (9.4-12.3); NRBC Pct Auto 0.2 /100WBC (0.0-0.2); Platelet Count 289 X10*3/uL (160-400); Red Blood Count 3.63 X10*6/uL (4.20-5.50); Red Cell Distribution Width 17.3 % (11.0-16.0); White Blood Count 19.4 X10*3/uL (4.8-10.8)
[2021-11-28 05:51] LABS: Venous Blood Gas Refer to POC result
[2021-11-28 06:02] LABS: Glucose, Whole Blood 258 mg/dL (60-115)
[2021-11-28] MEDS: Heparin Sodium,Porcine 5,000 UNIT/ML VIAL 5000 UNIT SUBCUT ×3 (06:05→22:35)
[2021-11-28] MEDS: Insulin Lispro 100 UNIT/ML 3 ML VIAL SUBCUT ×4 (06:06→23:44)
[2021-11-28 06:11] LABS: Albumin Level 2.9 g/dL (3.5-5.0); Anion Gap 16 (12-20); Blood Urea Nitrogen 63 mg/dL (9-16); Carbon Dioxide 31 mmol/L (22-29); Chloride 108 mmol/L (96-108); Creatinine Clr Calc Pharmacy 43.4; Estimated Glomerular Filt Rate 28; Glucose Random 302 mg/dL (60-115); Magnesium 2.4 mg/dL (1.6-2.6); Phosphorus 1.9 mg/dL (2.7-4.5); Potassium 3.3 mmol/L (3.3-5.1); Sodium 152 mmol/L (135-145)
--- NOTE | 2021-11-28 07:05 | PC.NURSE ---
Patient developed temperature overnight of 102.2. Tylenol administered as ordered without any effect. Patient placed on cooling blanket , temp now 100.7. Provider notified. VSS , will continue to monitor.
[2021-11-28] MEDS: Insulin Glargine,Hum.rec.anlog 100 UNIT/ML 10 ML VIAL 35 UNIT SUBCUT (07:59)
[2021-11-28] MEDS: Nystatin Powder 15 GM BOTTLE 1 APPL TOPICAL ×2 (08:00→20:17)
[2021-11-28] MEDS: Chlorhexidine Gluc Oral Rinse 15 ML MOUTHWASH BUCCAL ×3 (08:00→20:15)
--- NOTE | 2021-11-28 11:31 | PM.PNNEP ---
Subjective Subjective Date of Service: 11/28/21 Interval history: Seen and examined, events noted Physical Exam Vital Signs: Vital Signs: Last Vital Signs Temp 99.7 F 11/28/21 11:00 Pulse 77 11/28/21 11:00 Resp 20 11/28/21 09:00 BP 189/75 H 11/28/21 11:00 Pulse Ox 97 11/28/21 11:00 O2 Del Method 11/28/21 11:00 FiO2 28 11/28/21 11:00 BMI result Body Mass Index 52.2 Const: Other: Appearance: Lethargic, barely arousable Eyes: Pupils equal, round and reactive to light. ENT: Pharynx normal. Neck: Normal inspection. Neck supple. No lymph nodes noted. No crepitus CVS: Normal heart rate and rhythm. Pulses normal. Normal S1 and S2 Respiratory: In severe respiratory distress, mild wheezing, barely audible breath sounds Abdomen: Soft and nontender. No rigidity. No distention. Skin: Skin warm and dry. Normal skin color. Normal skin turgor. Extremities: No lower extremity edema. No Lacerations. No Rash Neuro: Very lethargic, unable to participate in cranial nerve assessment Psych: Lethargic General: no acute distress and other ( sedated on the vent arousable with sedation vacation) Nutritional Appearance: obese and Edematous Eyes: Sclerae: sclerae normal EOM: EOMs intact bilaterally Neck: Neck: Yes no lymphadenopathy, Yes trachea midline and Yes supple Resp: Auscultation: crackles ( bilateral) Cardio: Rate: regular rate Rhythm: regular rhythm Heart sounds: no gallops, no murmurs and no rubs GI: Palpation (GI): Soft to palpation and Other GI palpation findings present ( Nontender) Auscultation: normal bowel sounds Extrem: General: Yes no pedal edema, No clubbing, No cyanosis and Yes edema ( 2+ bilateral) Objective Data Labs CBC & Chem 7: 11/28/21 05:00 11/28/21 05:00 Labs: Laboratory Results - last 24 hr 11/27/21 11/27/21 11/27/21 11:54 13:49 13:49 WBC RBC Hgb Hct MCV MCH MCHC RDW Plt Count MPV Absolute Nucleated RBC Nucleated RBC % (auto) VBG pH VBG pCO2 VBG pO2 VBG HCO3 VBG O2 Saturation VBG Base Excess Sodium Potassium Chloride Carbon Dioxide Anion Gap BUN Creatinine Estim Creat Clear Calc Estimated GFR POC Glucose 301 H Random Glucose Calcium Phosphorus Magnesium Albumin Pleural WBC 0.918 Pleural RBC 0.008 Pleural Neutrophils 7 Pleural Lymphocytes 71 Pleural Monocytes 1 Pleural Eosinophils 2 Pleural Other Cells 19 Pleural Total Protein 1.5 Pleural Glucose 316 11/27/21 11/27/21 11/27/21 18:03 23:36 23:51 WBC RBC Hgb Hct MCV MCH MCHC RDW Plt Count MPV Absolute Nucleated RBC Nucleated RBC % (auto) VBG pH VBG pCO2 VBG pO2 VBG HCO3 VBG O2 Saturation VBG Base Excess Sodium Potassium Chloride Carbon Dioxide Anion Gap BUN Creatinine Estim Creat Clear Calc Estimated GFR POC Glucose 279 H 282 H 282 H Random Glucose Calcium Phosphorus Magnesium Albumin Pleural WBC Pleural RBC Pleural Neutrophils Pleural Lymphocytes Pleural Monocytes Pleural Eosinophils Pleural Other Cells Pleural Total Protein Pleural Glucose 11/28/21 11/28/21 11/28/21 05:00 05:00 05:14 WBC 19.4 H RBC 3.63 L Hgb 9.2 L Hct 30.1 L MCV 82.9 MCH 25.3 L MCHC 30.6 L RDW 17.3 H Plt Count 289 MPV 12.2 Absolute Nucleated RBC 0.030 H Nucleated RBC % (auto) 0.2 VBG pH 7.53 H VBG pCO2 40 VBG pO2 44 VBG HCO3 33 H VBG O2 Saturation 74.0 VBG Base Excess 10.2 Sodium 152 H Potassium 3.3 Chloride 108 Carbon Dioxide 31 H Anion Gap 16 BUN 63 H Creatinine 1.80 H Estim Creat Clear Calc 43.4 Estimated GFR 28 POC Glucose Random Glucose 302 H Calcium 8.0 L Phosphorus 1.9 L Magnesium 2.4 Albumin 2.9 L Pleural WBC Pleural RBC Pleural Neutrophils Pleural Lymphocytes Pleural Monocytes Pleural Eosinophils Pleural Other Cells Pleural Total Protein Pleural Glucose 11/28/21 05:57 WBC RBC Hgb Hct MCV MCH MCHC RDW Plt Count MPV Absolute Nucleated RBC Nucleated RBC % (auto) VBG pH VBG pCO2 VBG pO2 VBG HCO3 VBG O2 Saturation VBG Base Excess Sodium Potassium Chloride Carbon Dioxide Anion Gap BUN Creatinine Estim Creat Clear Calc Estimated GFR POC Glucose 258 H Random Glucose Calcium Phosphorus Magnesium Albumin Pleural WBC Pleural RBC Pleural Neutrophils Pleural Lymphocytes Pleural Monocytes Pleural Eosinophils Pleural Other Cells Pleural Total Protein Pleural Glucose Microbiology Microbiology Results: Microbiology 11/25/21 09:30 Thoracentesis Fluid Gram Stain - Final 11/25/21 09:30 Thoracentesis Fluid Anaerobic Culture - Preliminary No growth to date. 11/25/21 09:30 Thoracentesis Fluid Body Fluid Culture - Final No growth after 2 days 11/27/21 13:49 Thoracentesis Fluid Gram Stain - Final 11/27/21 13:49 Thoracentesis Fluid Anaerobic Culture - Preliminary No growth to date. 11/27/21 13:49 Thoracentesis Fluid Body Fluid Culture - Preliminary No growth after 1 day 11/25/21 14:57 Blood - Venous Blood Culture - Preliminary No growth after 48 hours. 11/25/21 14:57 Blood - Venous Blood Culture - Preliminary No growth after 48 hours. 11/25/21 15:30 Sputum - Suctioned Gram Stain - Final 11/25/21 15:30 Sputum - Suctioned Sputum Culture - Final 11/19/21 18:42 Blood - Venous Blood Culture - Final No growth after 5 days. 11/19/21 18:37 Blood - Venous Blood Culture - Final No growth after 5 days. 11/20/21 03:44 Sputum - Suctioned Gram Stain - Final 11/20/21 03:44 Sputum - Suctioned Sputum Culture - Final 11/20/21 Unknown Urine Catheterized - Turner Catheter Urine Culture - Final No growth. Procedures Date of Service Date of Service: 11/28/21 Assessment & Plan Assessment and plan (1) LEO (acute kidney injury): Status: Acute Plan 1. Oliguric LEO--> Non-oligurica LEO: c/w mutlifact ATN with grad decr Scr 2. CKD 3:BL Scr 1.4-1.7 3. Resp failure 4. HyperNa and hypoK: getting replaced with FWater and K respectively REC: cont to track renal fnc/UOP; no idincation for VEHICLE CARE SPECIALIST at this point; cont replace FW deficit and K Will follow clsoley with team Time Spent With Patient Time: Total time spent is greater than 50% in coordination of care (as documented) at patient's floor/unit and/or counseling patient: Progress Note: Quality Stroke Does the patient have a stroke diagnosis?: No
[2021-11-28 11:52] LABS: Glucose, Whole Blood 351 mg/dL (60-115)
--- NOTE | 2021-11-28 13:01 | PC.NURSE ---
More alert and awake today, no sedation in use, tracking, follows commands by wiggling toes to command, shook head no to deny pain. Patient also with serum sodium 152, and MD notified, and held Lasix gtt per MD. thick creamy oral and inline secretions. Moderate loose brown BM today. Was on cooling pad, and temperature decreased to 99.8.
[2021-11-28] MEDS: amLODIPine Besylate 5 MG TABLET OG-TUBE (15:25)
[2021-11-28] MEDS: Potassium Chloride Packet 20 MEQ PACKET 40 MEQ PO ×2 (15:26→20:16)
[2021-11-28] MEDS: modafiniL 100 MG TABLET 200 MG PO (15:26)
--- NOTE | 2021-11-28 15:26 | P.PNCC_ITS ---
Subjective Subjective Date of Service: 11/28/21 Interval History: Mrs. Toney was admitted to ICU on November 19 with acute respiratory failure after presenting to the ED with one day h/o SOB, and being immediately intubated on arrival. The patient is a 71-year-old female with the following PMHx of supermorbid obesity, CKD, previous strokes, severe ELIAS, and poor functional status, among others. See my progress note from Nov 27 for full details of PMHx and Hospital course. Echocardiogram on November 20 showed LV cavity size was normal with mild LVH.? LV function was hyperdynamic, with EF greater than 70%.? RV cavity size was mildly increased with borderline RV systolic function.? The left atrium was severely dilated; the right atrium was normal.? There was mild and mild MR.? The TR envelope was inadequate for calculation of RVSP.? The IVC was dilated with no inspiratory collapse. Chest CT repeated on 11/23 showed moderate bilateral pleural effusions, right larger than left, similar to the prior CT.? The entire left lower lobe and lingula were completely opacified, and there was partial opacification of the right middle and lower lobes and posterior upper lobes. Bronchoscopy was completely normal:? The entire bronchial tree was clean except for a small amount of thin clear secretions.? There was no erythema or purulence.? There was no tracheobronchitis.? No endobronchial lesions or other phenomena that might cause bronchial obstruction and lobar collapse was found.? Because of the lack of any evidence of infection on bronchoscopy, antibiotics were discontinued Diuresis pushed her BUN/creat up rapidly, suggestive of right heart failure/cardiorenal syndrome.? We gave her back IVF and the renal indices improved.? She underwent lymph node biopsy and right thoracentesis for 800 cc on Nov 25.? The LN bx was negative.? She underwent left thoracentesis for 400cc yesterday.? Both thoracenteses were transudates.? Her oxygenation and ventilation have both significantly improved after the thoracentesis. ?I restar champ a Lasix drip yesterday. The propofol and fentanyl have been off for > 72 hours.? She started waking up yesterday.? Today she?s definitely moving around more, and turned her head towards me on command, albeit inconsistently.? Moving both feet and her left arm.? HR 82, SR.? BP 168/68.? She?s been on PSV all day:? On PSV 16/25%/+8, RR is 14-18, Vt 500cc, Ve 9L, PIP 26cm, ETCO2 42mm, Sat 96%.? CVBG this morning 7.53/40/+10.? Tmax is down to 102.4? early this morning.? No JVD.? Chest is CTA, w normal exp phase.? Heart tones are soft, I heard no murmur or gallops.? The abdomen is obese and benign, with a very large panus.? She has 1+ pretibial edema; it?s impossible to gauge central edema.? Probably has anasarca. 24 hr u/o 3530 cc. LABORATORY DATA:? Below.? Notably, white count is steady at 19.? BUN/creat down to 63/1.8.? POCs are up to 280s. IMPRESSION: 1. Underlying super morbid obesity 2. Possible underlying obesity hypoventilation syndrome, with chronic hypercarbia. 3. Bilat, multilobar collapse or consolidation, of undetermined etiology.? Not likely pneumonia -- a pneumonia to this degree of consolidation would likely cause much, much more toxicity and much more severe hypoxemia.? Furthermore, there was no anticedant h/o toxicity or fever.? Lastly, the bronchoscopy was clean, no purulence 4. Acute respiratory failure.? Likely 2? to above multilobar collapse.? (At this time, I see no relation to her COVID episode.)? The etiology of her multilobar collapse is still unclear.? Could be atelectasis 2? the pleural effusions.? Since the thoracentesss, her oxygenation and ventilation have definitely improved.? The overarching determinant of her current resp failure though is her mental status.? She?s not going anywhere until she wakes up. 5. Wheezing.? Resolved with BD?s and 24 hrs of steroids.? Might well have some level of CLD. 6. CHF -- based in the least on her CXR, BNP, and thoracentesis results.? If she has CHF, it?s likely diastolic ddx, not systolic, based on the echo.? Restarted diuresis yesterday, and her renal indices improved. 7. Right heart failure, according to her size and the echo.? Furthermore, the urine Na and the rising renal indices with diuresis, and improvement with IV fluids are pathognomonic of cardiorenal syndrome. 8. Underlying CKD.? Probably 2? RHF. 9. Acute kidney injury.? Likely 2? RHF/cardiorneal syndrome, as noted above.? Drop the Lasix to 7 mg/hr. 10. Metabolic alkalosis.? Started Diamox. 11. HTN.? Started amlodipine. 12. Underlying DM.? On Lantus and sliding scale insulin.? Increase Lantus dose to 45 units bid. 13. ID:? Evidence of pneumonia is lacking.? Abx were d/c?d.? New fever last few days.? Nothing has grown on panculture.? I?ll redraw BCs with next temp > 101.5.? Pleural fluid gram stain, cell count, and chemistries are negative; the fluid was transudative. 14. Mediastinal, axillary, abdominal, and ?lymphadenopathy.? LN biopsy showed reactive lymphoid tissue; flow cytometry was negative.? Waiting for cytology from pleural fluid. 15. Neuropsych.? Very slow to wake up.? Likely had a ?bad brain? to begin with 2? strokes and pseudotumor cerebri.? No need for CT scan at this time.? Added Provigil today. 16. Nutrition.? On Nepro. Had a family conference yesterday.? (See my note from yesterday.)? Family is not inclined to drag things out.? Today I broached extubation to BiPAP and subsequent DNR/DNI status.? They?re very interested in that idea.? We?ll address that tomorrow. Critical Care Time (minutes): 70 Physical Exam Vital Signs: Vital Signs: Last Vital Signs Temp 99.7 F 11/28/21 11:00 Pulse 81 11/28/21 15:00 Resp 18 11/28/21 15:00 BP 160/59 H 11/28/21 15:00 Pulse Ox 94 11/28/21 15:00 O2 Del Method 11/28/21 15:00 FiO2 25 11/28/21 15:00 BMI result Body Mass Index 52.2 Objective Data Labs CBC & Chem 7: 11/28/21 05:00 11/28/21 05:00 Labs: Laboratory Results - last 24 hr 0811/27/21 11/27/21 13:49 13:49 18:03 WBC RBC Hgb Hct MCV MCH MCHC RDW Plt Count MPV Absolute Nucleated RBC Nucleated RBC % (auto) VBG pH VBG pCO2 VBG pO2 VBG HCO3 VBG O2 Saturation VBG Base Excess Sodium Potassium Chloride Carbon Dioxide Anion Gap BUN Creatinine Estim Creat Clear Calc Estimated GFR POC Glucose 279 H Random Glucose Calcium Phosphorus Magnesium Albumin Pleural WBC 0.918 Pleural RBC 0.008 Pleural Neutrophils 7 Pleural Lymphocytes 71 Pleural Monocytes 1 Pleural Eosinophils 2 Pleural Other Cells 19 Pleural Total Protein 1.5 Pleural Glucose 316 11/27/21 11/27/21 11/28/21 23:36 23:51 05:00 WBC 19.4 H RBC 3.63 L Hgb 9.2 L Hct 30.1 L MCV 82.9 MCH 25.3 L MCHC 30.6 L RDW 17.3 H Plt Count 289 MPV 12.2 Absolute Nucleated RBC 0.030 H Nucleated RBC % (auto) 0.2 VBG pH VBG pCO2 VBG pO2 VBG HCO3 VBG O2 Saturation VBG Base Excess Sodium Potassium Chloride Carbon Dioxide Anion Gap BUN Creatinine Estim Creat Clear Calc Estimated GFR POC Glucose 282 H 282 H Random Glucose Calcium Phosphorus Magnesium Albumin Pleural WBC Pleural RBC Pleural Neutrophils Pleural Lymphocytes Pleural Monocytes Pleural Eosinophils Pleural Other Cells Pleural Total Protein Pleural Glucose 11/28/21 11/28/21 11/28/21 05:00 05:14 05:57 WBC RBC Hgb Hct MCV MCH MCHC RDW Plt Count MPV Absolute Nucleated RBC Nucleated RBC % (auto) VBG pH 7.53 H VBG pCO2 40 VBG pO2 44 VBG HCO3 33 H VBG O2 Saturation 74.0 VBG Base Excess 10.2 Sodium 152 H Potassium 3.3 Chloride 108 Carbon Dioxide 31 H Anion Gap 16 BUN 63 H Creatinine 1.80 H Estim Creat Clear Calc 43.4 Estimated GFR 28 POC Glucose 258 H Random Glucose 302 H Calcium 8.0 L Phosphorus 1.9 L Magnesium 2.4 Albumin 2.9 L Pleural WBC Pleural RBC Pleural Neutrophils Pleural Lymphocytes Pleural Monocytes Pleural Eosinophils Pleural Other Cells Pleural Total Protein Pleural Glucose 11/28/21 11:48 WBC RBC Hgb Hct MCV MCH MCHC RDW Plt Count MPV Absolute Nucleated RBC Nucleated RBC % (auto) VBG pH VBG pCO2 VBG pO2 VBG HCO3 VBG O2 Saturation VBG Base Excess Sodium Potassium Chloride Carbon Dioxide Anion Gap BUN Creatinine Estim Creat Clear Calc Estimated GFR POC Glucose 351 H* Random Glucose Calcium Phosphorus Magnesium Albumin Pleural WBC Pleural RBC Pleural Neutrophils Pleural Lymphocytes Pleural Monocytes Pleural Eosinophils Pleural Other Cells Pleural Total Protein Pleural Glucose Microbiology Microbiology Results: Microbiology 11/25/21 09:30 Thoracentesis Fluid Gram Stain - Final 11/25/21 09:30 Thoracentesis Fluid Anaerobic Culture - Preliminary No growth to date. 11/25/21 09:30 Thoracentesis Fluid Body Fluid Culture - Final No growth after 2 days 11/27/21 13:49 Thoracentesis Fluid Gram Stain - Final 11/27/21 13:49 Thoracentesis Fluid Anaerobic Culture - Preliminary No growth to date. 11/27/21 13:49 Thoracentesis Fluid Body Fluid Culture - Preliminary No growth after 1 day 11/25/21 14:57 Blood - Venous Blood Culture - Preliminary No growth after 48 hours. 11/25/21 14:57 Blood - Venous Blood Culture - Preliminary No growth after 48 hours. 11/25/21 15:30 Sputum - Suctioned Gram Stain - Final 11/25/21 15:30 Sputum - Suctioned Sputum Culture - Final 11/19/21 18:42 Blood - Venous Blood Culture - Final No growth after 5 days. 11/19/21 18:37 Blood - Venous Blood Culture - Final No growth after 5 days. 11/20/21 03:44 Sputum - Suctioned Gram Stain - Final 11/20/21 03:44 Sputum - Suctioned Sputum Culture - Final 11/20/21 Unknown Urine Catheterized - Turner Catheter Urine Culture - Final No growth. Quality Stroke Does the patient have a stroke diagnosis?: No VTE Prior VTE?: No VTE Risk Level:: Medical - moderate - high VTE Device Contraindication: Treatment Not Indicated VTE Drug Contraindication: N/A - Med Ordered Critical Care Time Critical Care Time (minutes): 60
[2021-11-28] MEDS: acetaZOLAMIDE sodium 500 MG VIAL IVPUSH ×2 (15:48→20:15)
[2021-11-28] MEDS: Dextrose 5 % 1,000 ML 70 ML IVCONT (15:49)
[2021-11-28] MEDS: Furosemide 200 MG in 0.9 % Sodium Chloride 80 ML IVCONT (16:03)
[2021-11-28 18:00] LABS: Glucose, Whole Blood 294 mg/dL (60-115)
[2021-11-28] MEDS: Insulin Glargine,Hum.rec.anlog 100 UNIT/ML 10 ML VIAL 45 UNIT SUBCUT (20:16)
[2021-11-28 23:37] LABS: Glucose, Whole Blood 300 mg/dL (60-115)
[2021-11-29] VITALS (35 sets, daily range): BP systolic 112–148; BP diastolic 41–55; PULSE 72–82; RESP 13–25; TEMP 33.5–38.4; O2SAT 92–98; BMI 50.7
[2021-11-29] MEDS: Albuterol/Iprat 2.5/0.5MG 3 ML AMPUL.NEB INHALE ×7 (00:22→23:15)
[2021-11-29 05:40] LABS: VBG Base Excess 10.6 mmol/L; VBG HCO3 35 mmol/L (22-26); VBG pCO2 46 mmHg; VBG pH 7.48 (7.32-7.43); VBG pO2 41 mmHg
[2021-11-29 05:56] LABS: Venous Blood Gas Refer to POC result
[2021-11-29 05:58] LABS: Hematocrit 33.2 % (37.0-47.0); Mean Corpuscular HGB Conc 30.1 g/dl (31.0-35.0); Mean Platelet Volume 12.3 fL (9.4-12.3); NRBC Pct Auto 0.1 /100WBC (0.0-0.2); Platelet Count 330 X10*3/uL (160-400); Red Cell Distribution Width 17.8 % (11.0-16.0); White Blood Count 23.7 X10*3/uL (4.8-10.8)
[2021-11-29 06:08] LABS: Anion Gap 15 (12-20); Blood Urea Nitrogen 55 mg/dL (9-16); Calcium 7.5 mg/dL (8.4-10.2); Carbon Dioxide 32 mmol/L (22-29); Chloride 106 mmol/L (96-108); Creatinine Clr Calc Pharmacy 50.2; Estimated Glomerular Filt Rate 34; Glucose Random 243 mg/dL (60-115); Magnesium 1.8 mg/dL (1.6-2.6); Phosphorus 1.4 mg/dL (2.7-4.5); Potassium 3.1 mmol/L (3.3-5.1); Sodium 150 mmol/L (135-145)
[2021-11-29] MEDS: Dextrose 5 % 1,000 ML 70 ML IVCONT (06:27)
[2021-11-29 06:35] LABS: Glucose, Whole Blood 224 mg/dL (60-115)
[2021-11-29] MEDS: Heparin Sodium,Porcine 5,000 UNIT/ML VIAL 5000 UNIT SUBCUT ×3 (06:53→22:33)
[2021-11-29] MEDS: Insulin Lispro 100 UNIT/ML 3 ML VIAL SUBCUT ×3 (06:53→18:17)
--- NOTE | 2021-11-29 08:13 | PM.PNNEP ---
Subjective Subjective Date of Service: 11/29/21 Interval history: Seen and examined,events noted. Physical Exam Vital Signs: Vital Signs: Last Vital Signs Temp 99.7 F 11/29/21 08:00 Pulse 74 11/29/21 08:05 Resp 17 11/29/21 08:05 BP 134/50 L 11/29/21 08:00 Pulse Ox 93 11/29/21 08:00 O2 Del Method 11/29/21 08:00 FiO2 25 11/29/21 08:00 BMI result Body Mass Index 50.7 Const: Other: Appearance: Lethargic, barely arousable Eyes: Pupils equal, round and reactive to light. ENT: Pharynx normal. Neck: Normal inspection. Neck supple. No lymph nodes noted. No crepitus CVS: Normal heart rate and rhythm. Pulses normal. Normal S1 and S2 Respiratory: In severe respiratory distress, mild wheezing, barely audible breath sounds Abdomen: Soft and nontender. No rigidity. No distention. Skin: Skin warm and dry. Normal skin color. Normal skin turgor. Extremities: No lower extremity edema. No Lacerations. No Rash Neuro: Very lethargic, unable to participate in cranial nerve assessment Psych: Lethargic General: no acute distress and other ( sedated on the vent arousable with sedation vacation) Nutritional Appearance: obese and Edematous Eyes: Sclerae: sclerae normal EOM: EOMs intact bilaterally Neck: Neck: Yes no lymphadenopathy, Yes trachea midline and Yes supple Resp: Auscultation: crackles ( bilateral) Cardio: Rate: regular rate Rhythm: regular rhythm Heart sounds: no gallops, no murmurs and no rubs GI: Palpation (GI): Soft to palpation and Other GI palpation findings present ( Nontender) Auscultation: normal bowel sounds Extrem: General: Yes no pedal edema, No clubbing, No cyanosis and Yes edema ( 2+ bilateral) Objective Data Labs CBC & Chem 7: 11/29/21 05:10 11/29/21 05:10 Labs: Laboratory Results - last 24 hr 11/28/21 11/28/21 11/28/21 11:48 17:56 23:33 WBC RBC Hgb Hct MCV MCH MCHC RDW Plt Count MPV Absolute Nucleated RBC Nucleated RBC % (auto) VBG pH VBG pCO2 VBG pO2 VBG HCO3 VBG O2 Saturation VBG Base Excess Sodium Potassium Chloride Carbon Dioxide Anion Gap BUN Creatinine Estim Creat Clear Calc Estimated GFR POC Glucose 351 H* 294 H 300 H Random Glucose Calcium Phosphorus Magnesium 11/29/21 11/29/21 11/29/21 05:10 05:10 05:33 WBC 23.7 H RBC 4.00 L Hgb 10.0 L Hct 33.2 L MCV 83.0 MCH 25.0 L MCHC 30.1 L RDW 17.8 H Plt Count 330 MPV 12.3 Absolute Nucleated RBC 0.030 H Nucleated RBC % (auto) 0.1 VBG pH 7.48 H VBG pCO2 46 VBG pO2 41 VBG HCO3 35 H VBG O2 Saturation 73.0 VBG Base Excess 10.6 Sodium 150 H Potassium 3.1 L Chloride 106 Carbon Dioxide 32 H Anion Gap 15 BUN 55 H Creatinine 1.50 H Estim Creat Clear Calc 50.2 Estimated GFR 34 POC Glucose Random Glucose 243 H Calcium 7.5 L D Phosphorus 1.4 L Magnesium 1.8 11/29/21 06:30 WBC RBC Hgb Hct MCV MCH MCHC RDW Plt Count MPV Absolute Nucleated RBC Nucleated RBC % (auto) VBG pH VBG pCO2 VBG pO2 VBG HCO3 VBG O2 Saturation VBG Base Excess Sodium Potassium Chloride Carbon Dioxide Anion Gap BUN Creatinine Estim Creat Clear Calc Estimated GFR POC Glucose 224 H Random Glucose Calcium Phosphorus Magnesium Microbiology Microbiology Results: Microbiology 11/25/21 09:30 Thoracentesis Fluid Gram Stain - Final 11/25/21 09:30 Thoracentesis Fluid Anaerobic Culture - Preliminary No growth to date. 11/25/21 09:30 Thoracentesis Fluid Body Fluid Culture - Final No growth after 2 days 11/27/21 13:49 Thoracentesis Fluid Gram Stain - Final 11/27/21 13:49 Thoracentesis Fluid Anaerobic Culture - Preliminary No growth to date. 11/27/21 13:49 Thoracentesis Fluid Body Fluid Culture - Preliminary No growth after 1 day 11/25/21 14:57 Blood - Venous Blood Culture - Preliminary No growth after 48 hours. 11/25/21 14:57 Blood - Venous Blood Culture - Preliminary No growth after 48 hours. 11/25/21 15:30 Sputum - Suctioned Gram Stain - Final 11/25/21 15:30 Sputum - Suctioned Sputum Culture - Final 11/19/21 18:42 Blood - Venous Blood Culture - Final No growth after 5 days. 11/19/21 18:37 Blood - Venous Blood Culture - Final No growth after 5 days. 11/20/21 03:44 Sputum - Suctioned Gram Stain - Final 11/20/21 03:44 Sputum - Suctioned Sputum Culture - Final 11/20/21 Unknown Urine Catheterized - Turner Catheter Urine Culture - Final No growth. Procedures Date of Service Date of Service: 11/29/21 Assessment & Plan Assessment and plan (1) LEO (acute kidney injury): Status: Acute Plan 1. Oliguric LEO--> Non-oligurica LEO: decre SCr is good sign and close to BSL; c/w episode of mutlifact ATN 2. CKD 3:BL Scr 1.4-1.7 3. Resp failure 4. HyperNa and hypoK: getting replaced with FWater and K respectively REC: cont to track renal fnc/UOP;; cont replace FW deficit and K Will follow clsoley with team Time Spent With Patient Time: Total time spent is greater than 50% in coordination of care (as documented) at patient's floor/unit and/or counseling patient: Progress Note: Quality Stroke Does the patient have a stroke diagnosis?: No
[2021-11-29] MEDS: Chlorhexidine Gluc Oral Rinse 15 ML MOUTHWASH BUCCAL ×3 (08:45→22:00)
[2021-11-29] MEDS: acetaZOLAMIDE sodium 500 MG VIAL IVPUSH ×3 (08:46→22:00)
[2021-11-29] MEDS: amLODIPine Besylate 5 MG TABLET OG-TUBE (08:46)
[2021-11-29] MEDS: Potassium Chloride Packet 20 MEQ PACKET 40 MEQ OG-TUBE ×2 (08:46→11:28)
[2021-11-29] MEDS: Potassium Phosphate/NS 15 MMOL/250 ML PLAST..BAG 125 MMOL IV (08:47)
[2021-11-29] MEDS: Insulin Glargine,Hum.rec.anlog 100 UNIT/ML 10 ML VIAL 45 UNIT SUBCUT ×2 (08:47→22:00)
[2021-11-29] MEDS: Magnesium Sulfate/H2O 2 GM/50 ML PIGGYBACK IV ×2 (08:47→22:00)
[2021-11-29] MEDS: modafiniL 100 MG TABLET 200 MG PO (09:59)
[2021-11-29] MEDS: Nystatin Powder 15 GM BOTTLE 1 APPL TOPICAL ×2 (10:03→22:34)
[2021-11-29] MEDS: Furosemide 200 MG in 0.9 % Sodium Chloride 80 ML IVCONT (10:26)
[2021-11-29] MEDS: Potassium Phosphate/NS 15 MMOL/250 ML PLAST..BAG 62.5 MMOL IV (11:03)
--- NOTE | 2021-11-29 11:09 | PM.CCPN ---
Subjective Subjective Date of Service: 11/29/21 Interval History: Mrs. Toney was admitted to ICU on November 19 with acute respiratory failure after presenting to the ED with one day h/o SOB, and being immediately intubated on arrival. The patient is a 71-year-old female with the following PMHx of supermorbid obesity, CKD, previous strokes, severe ELIAS, and poor functional status, among others. Echocardiogram on November 20 showed LV cavity size was normal with mild LVH.? LV function was hyperdynamic, with EF greater than 70%.? RV cavity size was mildly increased with borderline RV systolic function.? The left atrium was severely dilated; the right atrium was normal.? There was mild and mild MR.? The TR envelope was inadequate for calculation of RVSP.? The IVC was dilated with no inspiratory collapse. Chest CT repeated on 11/23 showed moderate bilateral pleural effusions, right larger than left, similar to the prior CT.? The entire left lower lobe and lingula were completely opacified, and there was partial opacification of the right middle and lower lobes and posterior upper lobes. Bronchoscopy was completely normal:? The entire bronchial tree was clean except for a small amount of thin clear secretions.? There was no erythema or purulence.? There was no tracheobronchitis.? No endobronchial lesions or other phenomena that might cause bronchial obstruction and lobar collapse was found.? Because of the lack of any evidence of infection on bronchoscopy, antibiotics were discontinued Diuresis pushed her BUN/creat up rapidly, suggestive of right heart failure/cardiorenal syndrome.? We gave her back IVF and the renal indices improved.? She underwent lymph node biopsy and right thoracentesis for 800 cc on Nov 25.? The LN bx was negative.? She underwent left thoracentesis for 400cc yesterday.? Both thoracenteses were transudates.? Her oxygenation and ventilation have both significantly improved after the thoracentesis.? I restarted a Lasix drip on 11/27.? Since then, her oxygenation, ventilation, and renal indices have improved. The propofol and fentanyl have been off for 4 days.? She started waking up after 24 hrs.? I added Provigil yesterday.? Today she?s definitely moving around more, and consistently opened her eyes and looked at me when I talked to her.? She inconsistently nodded her head yes to simple questions.? Moving both feet and her left arm.? HR 78, SR.? BP 148/53 after starting amlodipine 5mg yesterday.? She?s been on PSV all day.? I dropped her PSV to 10.? On PSV 10/25%/+8, RR is 22, Vt 380cc, Ve 8.5L, PIP 19cm, ETCO2 32mm, Sat 94%.? CVBG this morning 7.48/46/+10 (on Diamox).? Afbrile x 24 hrs.? No JVD.? Chest is CTA, w normal exp phase.? Heart tones are soft, I heard no murmur or gallops.? The abdomen is obese and benign, with a very large panus.? She has 1+ pretibial edema; it?s impossible to gauge central edema.? Probably has anasarca. 24 hr u/o 3320cc on Lasix 10mg/hr. IV intake 1491 cc, mainly D5W (for hypernatremia). LABORATORY DATA:? Below.? Notably, white count is steady at 19.? BUN/creat down to 55/1.5. IMPRESSION: 1. Underlying super morbid obesity 2. Possible underlying obesity hypoventilation syndrome, with chronic hypercarbia. 3. Bilat, multilobar collapse or consolidation, of undetermined etiology.? Not likely pneumonia -- a pneumonia to this degree of consolidation would likely cause much, much more toxicity and much more severe hypoxemia.? Furthermore, there was no anticedant h/o toxicity or fever.? Lastly, the bronchoscopy was clean, no purulence 4. Acute respiratory failure.? Likely 2? to above multilobar collapse.? (At this time, I see no relation to her COVID episode.)? The etiology of her multilobar collapse is still unclear.? Could be atelectasis 2? the pleural effusions.? Since the thoracentesss, her oxygenation and ventilation have definitely improved.? The overarching determinant of her current resp failure though is her mental status. ?She?s got to be moreawake before we decide to do anything. 5. Wheezing.? Resolved with BD?s and 24 hrs of steroids.? Might well have some level of CLD. 6. CHF -- based in the least on her CXR, BNP, and thoracentesis results.? If she has CHF, it?s likely diastolic ddx, not systolic, based on the echo.? Restarted diuresis 11/27, and her renal indices improved.? We?ll continue the Lasix drip. 7. Right heart failure, according to her size and the echo.? Furthermore, the urine Na and the rising renal indices with diuresis, and improvement with IV fluids are pathognomonic of cardiorenal syndrome. 8. Underlying CKD.? Probably 2? RHF. 9. Acute kidney injury.? Likely 2? RHF/cardiorneal syndrome, as noted above.? Continuing Lasix 10mg/hr 10. Metabolic alkalosis.? Started Diamox. 11. Hypernatremia.? She?s on free water flushes.? Upped the D5W to 80cc/hr. 12. HTN.? BP is perfect on amlodipine 5mg daily. 13. Underlying DM.? On Lantus and sliding scale insulin.? Increased Lantus dose to 45 units bid, and increased her SS dosing. 14. ID:? Evidence of pneumonia is lacking.? Abx were d/c?d.? Has been febrile for days, but nothing has grown on panculture.? I?ll redraw BCs with next temp > 101.5.? Pleural fluid gram stain, cell count, and chemistries are negative; the fluid was transudative. 15. Mediastinal, axillary, abdominal, and inguinal lymphadenopathy.? Right inguinal LN biopsy showed reactive lymphoid tissue; flow cytometry was negative.? Waiting for cytology from pleural fluid. 16. Neuropsych.? Very slow to wake up.? Likely had a ?bad brain? to begin with, 2? strokes and pseudotumor cerebri.? No need for CT scan at this time.? Added Provigil yesterday, she?s much more awake now. 17. Nutrition.? On Nepro. Had a family conference on 11/27.? (See my note from that day.)? Family was not inclined to drag things out.? Yesterday I broached extubation to BiPAP and subsequent DNR/DNI status.? They?re very interested in that idea. ADDENDUM:? Reexamined at 1350.? She?s much, much more awake, nodded her head consistently in response to all my questions.? Given the context, now is the time to extubate to BiPAP.? Spoke w the niece Patricia, she is coming in and we?ll proceed. Critical Care Time (minutes): 70 Physical Exam Vital Signs: Vital Signs: Last Vital Signs Temp 99.7 F 11/29/21 08:00 Pulse 77 11/29/21 11:00 Resp 21 H 11/29/21 11:00 BP 148/53 H 11/29/21 11:00 Pulse Ox 93 11/29/21 11:00 O2 Del Method 11/29/21 11:00 FiO2 25 11/29/21 11:00 BMI result Body Mass Index 50.7 Objective Data Labs CBC & Chem 7: 11/29/21 05:10 11/29/21 05:10 Labs: Laboratory Results - last 24 hr 11/28/21 11/28/21 11/28/21 11:48 17:56 23:33 WBC RBC Hgb Hct MCV MCH MCHC RDW Plt Count MPV Absolute Nucleated RBC Nucleated RBC % (auto) VBG pH VBG pCO2 VBG pO2 VBG HCO3 VBG O2 Saturation VBG Base Excess Sodium Potassium Chloride Carbon Dioxide Anion Gap BUN Creatinine Estim Creat Clear Calc Estimated GFR POC Glucose 351 H* 294 H 300 H Random Glucose Calcium Phosphorus Magnesium 11/29/21 11/29/21 11/29/21 05:10 05:10 05:33 WBC 23.7 H RBC 4.00 L Hgb 10.0 L Hct 33.2 L MCV 83.0 MCH 25.0 L MCHC 30.1 L RDW 17.8 H Plt Count 330 MPV 12.3 Absolute Nucleated RBC 0.030 H Nucleated RBC % (auto) 0.1 VBG pH 7.48 H VBG pCO2 46 VBG pO2 41 VBG HCO3 35 H VBG O2 Saturation 73.0 VBG Base Excess 10.6 Sodium 150 H Potassium 3.1 L Chloride 106 Carbon Dioxide 32 H Anion Gap 15 BUN 55 H Creatinine 1.50 H Estim Creat Clear Calc 50.2 Estimated GFR 34 POC Glucose Random Glucose 243 H Calcium 7.5 L D Phosphorus 1.4 L Magnesium 1.8 11/29/21 06:30 WBC RBC Hgb Hct MCV MCH MCHC RDW Plt Count MPV Absolute Nucleated RBC Nucleated RBC % (auto) VBG pH VBG pCO2 VBG pO2 VBG HCO3 VBG O2 Saturation VBG Base Excess Sodium Potassium Chloride Carbon Dioxide Anion Gap BUN Creatinine Estim Creat Clear Calc Estimated GFR POC Glucose 224 H Random Glucose Calcium Phosphorus Magnesium Microbiology Microbiology Results: Microbiology 11/25/21 09:30 Thoracentesis Fluid Gram Stain - Final 11/25/21 09:30 Thoracentesis Fluid Anaerobic Culture - Preliminary No growth to date. 11/25/21 09:30 Thoracentesis Fluid Body Fluid Culture - Final No growth after 2 days 11/27/21 13:49 Thoracentesis Fluid Gram Stain - Final 11/27/21 13:49 Thoracentesis Fluid Anaerobic Culture - Preliminary No growth to date. 11/27/21 13:49 Thoracentesis Fluid Body Fluid Culture - Final No growth after 2 days 11/25/21 14:57 Blood - Venous Blood Culture - Preliminary No growth after 48 hours. 11/25/21 14:57 Blood - Venous Blood Culture - Preliminary No growth after 48 hours. 11/25/21 15:30 Sputum - Suctioned Gram Stain - Final 11/25/21 15:30 Sputum - Suctioned Sputum Culture - Final 11/19/21 18:42 Blood - Venous Blood Culture - Final No growth after 5 days. 11/19/21 18:37 Blood - Venous Blood Culture - Final No growth after 5 days. 11/20/21 03:44 Sputum - Suctioned Gram Stain - Final 11/20/21 03:44 Sputum - Suctioned Sputum Culture - Final 11/20/21 Unknown Urine Catheterized - Turner Catheter Urine Culture - Final No growth. Quality Stroke Does the patient have a stroke diagnosis?: No VTE Prior VTE?: No VTE Risk Level:: Medical - moderate - high VTE Device Contraindication: Treatment Not Indicated VTE Drug Contraindication: N/A - Med Ordered Critical Care Time Critical Care Time (minutes): 60
[2021-11-29] MEDS: fentaNYL citrate/NS 1,000 MCG/100 ML PLAST..BAG 2.5 MCG IVCONT (11:14)
[2021-11-29 11:33] LABS: Glucose, Whole Blood 199 mg/dL (60-115)
[2021-11-29 17:55] LABS: Anion Gap 15 (12-20); Blood Urea Nitrogen 51 mg/dL (9-16); Calcium 7.4 mg/dL (8.4-10.2); Carbon Dioxide 31 mmol/L (22-29); Chloride 108 mmol/L (96-108); Creatinine Clr Calc Pharmacy 47.1; Estimated Glomerular Filt Rate 33; Glucose Random 178 mg/dL (60-115); Phosphorus 2.8 mg/dL (2.7-4.5); Potassium 3.7 mmol/L (3.3-5.1); Sodium 150 mmol/L (135-145)
[2021-11-29 18:16] LABS: Glucose, Whole Blood 155 mg/dL (60-115)
[2021-11-29] MEDS: Dextrose 5 % 1,000 ML 80 ML IVCONT (22:31)
[2021-11-30] VITALS (32 sets, daily range): BP systolic 101–161; BP diastolic 34–63; PULSE 61–84; RESP 14–28; TEMP 34.8–38.4; O2SAT 92–100; BMI 50.6
[2021-11-30 00:40] LABS: Glucose, Whole Blood 124 mg/dL (60-115)
[2021-11-30] MEDS: acetaZOLAMIDE sodium 500 MG VIAL IVPUSH ×2 (02:19→07:56)
[2021-11-30] MEDS: Albuterol/Iprat 2.5/0.5MG 3 ML AMPUL.NEB INHALE ×5 (04:49→19:06)
[2021-11-30 05:16] LABS: VBG Base Excess 7.8 mmol/L; VBG HCO3 31 mmol/L (22-26); VBG pCO2 42 mmHg; VBG pH 7.48 (7.32-7.43); VBG pO2 41 mmHg
[2021-11-30 05:32] LABS: Venous Blood Gas Refer to POC result
[2021-11-30 05:41] LABS: Hematocrit 31.2 % (37.0-47.0); Hemoglobin 9.3 g/dl (12.0-16.0); Mean Corpuscular HGB Conc 29.8 g/dl (31.0-35.0); Mean Corpuscular Hemoglobin 25.4 pg (27.0-33.0); Mean Corpuscular Volume 85.2 fL (80.0-98.0); Mean Platelet Volume 12.8 fL (9.4-12.3); NRBC Pct Auto 0.1 /100WBC (0.0-0.2); Platelet Count 315 X10*3/uL (160-400); Red Blood Count 3.66 X10*6/uL (4.20-5.50); Red Cell Distribution Width 18.6 % (11.0-16.0); White Blood Count 22.2 X10*3/uL (4.8-10.8)
[2021-11-30 05:51] LABS: Glucose, Whole Blood 103 mg/dL (60-115)
[2021-11-30 06:01] LABS: B Type Natriuretic Peptide 246 pg/mL (<100)
[2021-11-30 06:09] LABS: Anion Gap 15 (12-20); Blood Urea Nitrogen 49 mg/dL (9-16); Calcium 7.3 mg/dL (8.4-10.2); Carbon Dioxide 31 mmol/L (22-29); Chloride 106 mmol/L (96-108); Creatinine Clr Calc Pharmacy 47.1; Estimated Glomerular Filt Rate 33; Glucose Random 98 mg/dL (60-115); Magnesium 2.5 mg/dL (1.6-2.6); Phosphorus 2.9 mg/dL (2.7-4.5); Potassium 3.2 mmol/L (3.3-5.1); Sodium 149 mmol/L (135-145)
[2021-11-30] MEDS: Heparin Sodium,Porcine 5,000 UNIT/ML VIAL 5000 UNIT SUBCUT ×3 (06:29→22:46)
[2021-11-30 07:13] LABS: Glucose, Whole Blood 98 mg/dL (60-115)
[2021-11-30] MEDS: Insulin Glargine,Hum.rec.anlog 100 UNIT/ML 10 ML VIAL 45 UNIT SUBCUT (07:56)
[2021-11-30] MEDS: Chlorhexidine Gluc Oral Rinse 15 ML MOUTHWASH BUCCAL ×3 (07:56→19:50)
[2021-11-30] MEDS: modafiniL 100 MG TABLET 200 MG PO (07:56)
[2021-11-30] MEDS: Nystatin Powder 15 GM BOTTLE 1 APPL TOPICAL ×2 (07:57→19:50)
[2021-11-30] MEDS: amLODIPine Besylate 5 MG TABLET OG-TUBE (07:57)
[2021-11-30] MEDS: Furosemide 200 MG in 0.9 % Sodium Chloride 80 ML IVCONT (08:21)
[2021-11-30] MEDS: KCl 20 mEq in 5 % Dextrose 20 MEQ/1,000 ML IV.SOLN 80 MEQ IVCONT ×2 (09:58→22:38)
--- NOTE | 2021-11-30 10:47 | MHC.CLN ---
F/U PT REMAINS INTUBATED DISCUSSED WITH TEAM AT ROUNDS PT TOLERATING NEPRO AT 15ML/HR WITH 240ML FREE WATER Q 4 HRS PROVIDES 648KCALS, 29G PROTEIN, 1702ML TOTAL WATER RECOMMEND RE-STARTING NEPRO AT MAX GOAL RATE OF 30 ML/HR WITH 240ML FREE WATER FLUSHES Q 4HRS TO PROVIDE 1296 KCALS (22.8 G/KG IBW); 58 G PROTEIN (1.02 G/KG IBW), 1963 ML TOTAL WATER FROM FORMULA AND FLUSHES (34ML/KG) MONITOR TOLERANCE, RESIDUALS, AND LYTES.
--- NOTE | 2021-11-30 11:25 | PM.PNNEP ---
Subjective Subjective Date of Service: 11/30/21 Interval history: Events noted. All recent data reviewed Physical Exam Vital Signs: Vital Signs: Last Vital Signs Temp 101.1 F H 11/30/21 08:00 Pulse 83 11/30/21 11:00 Resp 15 11/30/21 11:00 BP 156/44 H 11/30/21 11:00 Pulse Ox 100 11/30/21 11:00 O2 Del Method 11/30/21 11:00 FiO2 25 11/30/21 11:00 BMI result Body Mass Index 50.6 Const: General: no acute distress Neck: Neck: Yes supple Resp: Auscultation: diminished lung sounds Cardio: Rate: regular rate GI: Palpation (GI): Soft to palpation Extrem: Other: Edema Objective Data Labs CBC & Chem 7: 11/30/21 05:05 11/30/21 05:05 Labs: Laboratory Results - last 24 hr 11/29/21 11/29/21 11/29/21 11:24 17:09 18:13 WBC RBC Hgb Hct MCV MCH MCHC RDW Plt Count MPV Absolute Nucleated RBC Nucleated RBC % (auto) VBG pH VBG pCO2 VBG pO2 VBG HCO3 VBG O2 Saturation VBG Base Excess Sodium 150 H Potassium 3.7 Chloride 108 Carbon Dioxide 31 H Anion Gap 15 BUN 51 H Creatinine 1.57 H Estim Creat Clear Calc 47.1 Estimated GFR 33 POC Glucose 199 H 155 H Random Glucose 178 H Calcium 7.4 L Phosphorus 2.8 Magnesium B-Natriuretic Peptide 11/30/21 11/30/21 11/30/21 00:37 05:05 05:05 WBC 22.2 H RBC 3.66 L Hgb 9.3 L Hct 31.2 L MCV 85.2 MCH 25.4 L MCHC 29.8 L RDW 18.6 H Plt Count 315 MPV 12.8 H Absolute Nucleated RBC 0.020 H Nucleated RBC % (auto) 0.1 VBG pH VBG pCO2 VBG pO2 VBG HCO3 VBG O2 Saturation VBG Base Excess Sodium 149 H Potassium 3.2 L Chloride 106 Carbon Dioxide 31 H Anion Gap 15 BUN 49 H Creatinine 1.57 H Estim Creat Clear Calc 47.1 Estimated GFR 33 POC Glucose 124 H Random Glucose 98 Calcium 7.3 L Phosphorus 2.9 Magnesium 2.5 B-Natriuretic Peptide 11/30/21 11/30/21 11/30/21 05:05 05:11 05:46 WBC RBC Hgb Hct MCV MCH MCHC RDW Plt Count MPV Absolute Nucleated RBC Nucleated RBC % (auto) VBG pH 7.48 H VBG pCO2 42 VBG pO2 41 VBG HCO3 31 H VBG O2 Saturation 73.0 VBG Base Excess 7.8 Sodium Potassium Chloride Carbon Dioxide Anion Gap BUN Creatinine Estim Creat Clear Calc Estimated GFR POC Glucose 103 Random Glucose Calcium Phosphorus Magnesium B-Natriuretic Peptide 246 H 11/30/21 07:09 WBC RBC Hgb Hct MCV MCH MCHC RDW Plt Count MPV Absolute Nucleated RBC Nucleated RBC % (auto) VBG pH VBG pCO2 VBG pO2 VBG HCO3 VBG O2 Saturation VBG Base Excess Sodium Potassium Chloride Carbon Dioxide Anion Gap BUN Creatinine Estim Creat Clear Calc Estimated GFR POC Glucose 98 Random Glucose Calcium Phosphorus Magnesium B-Natriuretic Peptide Microbiology Microbiology Results: Microbiology 11/25/21 09:30 Pleural Fluid Fungal Identification - Preliminary No growth to date. 11/29/21 22:31 Urine Catheterized - Turner Catheter Urine Culture - Preliminary No growth to date. 11/25/21 09:30 Thoracentesis Fluid Gram Stain - Final 11/25/21 09:30 Thoracentesis Fluid Anaerobic Culture - Final NO GROWTH AFTER 5 DAYS 11/25/21 09:30 Thoracentesis Fluid Body Fluid Culture - Final No growth after 2 days 11/27/21 13:49 Thoracentesis Fluid Gram Stain - Final 11/27/21 13:49 Thoracentesis Fluid Anaerobic Culture - Preliminary No growth to date. 11/27/21 13:49 Thoracentesis Fluid Body Fluid Culture - Final No growth after 2 days 11/25/21 14:57 Blood - Venous Blood Culture - Preliminary No growth after 48 hours. 11/25/21 14:57 Blood - Venous Blood Culture - Preliminary No growth after 48 hours. 11/25/21 15:30 Sputum - Suctioned Gram Stain - Final 11/25/21 15:30 Sputum - Suctioned Sputum Culture - Final 11/19/21 18:42 Blood - Venous Blood Culture - Final No growth after 5 days. 11/19/21 18:37 Blood - Venous Blood Culture - Final No growth after 5 days. 11/20/21 03:44 Sputum - Suctioned Gram Stain - Final 11/20/21 03:44 Sputum - Suctioned Sputum Culture - Final 11/20/21 Unknown Urine Catheterized - Turner Catheter Urine Culture - Final No growth. Procedures Date of Service Date of Service: 11/30/21 Assessment & Plan Assessment and plan (1) LEO (acute kidney injury): Status: Acute Assessment and Plan: Has baseline CKD 3 with serum creatinine of 1.4 to 1.7 LEO due to tubular injury Urine output good with diuretics Renal functions stable.Keep K over 4 Continue rest of current supportive care Time Spent With Patient Time: Total time spent is greater than 50% in coordination of care (as documented) at patient's floor/unit and/or counseling patient: Progress Note: Quality Stroke Does the patient have a stroke diagnosis?: No
--- NOTE | 2021-11-30 11:35 | PM.CCPN ---
Subjective Subjective Date of Service: 11/30/21 Interval History: A 71-year-old morbidly obese female who presented with acute hypoxemic respiratory failure it was deemed to be on the basis of volume in the mid looked like pulmonary edema along with bilateral pleural effusions that were moderate in size and both were tapped and demonstrated a predominant lymphocytosis and and the patient was aggressively diuresed to the point where she became hypernatremic clearly has diminished intravascular volume right now so I am stopping all diuretics and just simply treating with D5W and potassium replacement following CVP which is currently 8 indicating in [place] probable euvolemia or certainly close to but she has regain cognitive function and she is responsive and communicating and is on pressure support which we wean down to a minimum but barely maintaining of 400 cc tidal volume and in addition when we got back the indication from the lymph node aspiration from the groin indicating a 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 we felt we needed better lymph node biopsy material so were going ahead with bronchoscopic ultrasound and biopsy and to see whether not word radial Ng with a lymphatic malignancy and if so at least no devise a form of therapy before we we extubate Bedside echo showed again preserved left ventricular systolic function Critical Care Time (minutes): 45 Physical Exam Vital Signs: Vital Signs: Last Vital Signs Temp 101.1 F H 11/30/21 08:00 Pulse 83 11/30/21 11:00 Resp 15 11/30/21 11:00 BP 156/44 H 11/30/21 11:00 Pulse Ox 100 11/30/21 11:00 O2 Del Method 11/30/21 11:00 FiO2 25 11/30/21 11:00 BMI result Body Mass Index 50.6 Awake with appropriate cognitive function and nonfocal neurologically Bedside echo indicating normal left ventricular ejection fraction Abdomen is soft no organomegaly nontender Skin is intact with no peripheral edema no acrocyanosis Lungs although tachypneic there was no accessory muscle use no diaphragmatic effort Objective Data Labs CBC & Chem 7: 12/01/21 05:46 11/30/21 21:47 Labs: Laboratory Results - last 24 hr 11/29/21 11/29/21 11/30/21 17:09 18:13 00:37 WBC RBC Hgb Hct MCV MCH MCHC RDW Plt Count MPV Absolute Nucleated RBC Nucleated RBC % (auto) VBG pH VBG pCO2 VBG pO2 VBG HCO3 VBG O2 Saturation VBG Base Excess Sodium 150 H Potassium 3.7 Chloride 108 Carbon Dioxide 31 H Anion Gap 15 BUN 51 H Creatinine 1.57 H Estim Creat Clear Calc 47.1 Estimated GFR 33 POC Glucose 155 H 124 H Random Glucose 178 H Calcium 7.4 L Phosphorus 2.8 Magnesium B-Natriuretic Peptide 11/30/21 11/30/21 11/30/21 05:05 05:05 05:05 WBC 22.2 H RBC 3.66 L Hgb 9.3 L Hct 31.2 L MCV 85.2 MCH 25.4 L MCHC 29.8 L RDW 18.6 H Plt Count 315 MPV 12.8 H Absolute Nucleated RBC 0.020 H Nucleated RBC % (auto) 0.1 VBG pH VBG pCO2 VBG pO2 VBG HCO3 VBG O2 Saturation VBG Base Excess Sodium 149 H Potassium 3.2 L Chloride 106 Carbon Dioxide 31 H Anion Gap 15 BUN 49 H Creatinine 1.57 H Estim Creat Clear Calc 47.1 Estimated GFR 33 POC Glucose Random Glucose 98 Calcium 7.3 L Phosphorus 2.9 Magnesium 2.5 B-Natriuretic Peptide 246 H 11/30/21 11/30/21 11/30/21 05:11 05:46 07:09 WBC RBC Hgb Hct MCV MCH MCHC RDW Plt Count MPV Absolute Nucleated RBC Nucleated RBC % (auto) VBG pH 7.48 H VBG pCO2 42 VBG pO2 41 VBG HCO3 31 H VBG O2 Saturation 73.0 VBG Base Excess 7.8 Sodium Potassium Chloride Carbon Dioxide Anion Gap BUN Creatinine Estim Creat Clear Calc Estimated GFR POC Glucose 103 98 Random Glucose Calcium Phosphorus Magnesium B-Natriuretic Peptide Microbiology Microbiology Results: Microbiology 11/25/21 09:30 Pleural Fluid Fungal Identification - Preliminary No growth to date. 11/29/21 22:31 Urine Catheterized - Turner Catheter Urine Culture - Preliminary No growth to date. 11/25/21 09:30 Thoracentesis Fluid Gram Stain - Final 11/25/21 09:30 Thoracentesis Fluid Anaerobic Culture - Final NO GROWTH AFTER 5 DAYS 11/25/21 09:30 Thoracentesis Fluid Body Fluid Culture - Final No growth after 2 days 11/27/21 13:49 Thoracentesis Fluid Gram Stain - Final 11/27/21 13:49 Thoracentesis Fluid Anaerobic Culture - Preliminary No growth to date. 11/27/21 13:49 Thoracentesis Fluid Body Fluid Culture - Final No growth after 2 days 11/25/21 14:57 Blood - Venous Blood Culture - Preliminary No growth after 48 hours. 11/25/21 14:57 Blood - Venous Blood Culture - Preliminary No growth after 48 hours. 11/25/21 15:30 Sputum - Suctioned Gram Stain - Final 11/25/21 15:30 Sputum - Suctioned Sputum Culture - Final 11/19/21 18:42 Blood - Venous Blood Culture - Final No growth after 5 days. 11/19/21 18:37 Blood - Venous Blood Culture - Final No growth after 5 days. 11/20/21 03:44 Sputum - Suctioned Gram Stain - Final 11/20/21 03:44 Sputum - Suctioned Sputum Culture - Final 11/20/21 Unknown Urine Catheterized - Turner Catheter Urine Culture - Final No growth. Progress Note: A&P Assessment and plan (1) Lymphadenopathy, mediastinal: Status: Acute (2) Pleural effusion: Status: Acute (3) Respiratory failure: Status: Acute (4) Obesity: Status: Acute (5) Hypothyroidism: Status: Acute (6) HTN (hypertension): Status: Acute (7) Diabetes mellitus with insulin therapy: Status: Acute (8) Sepsis: Status: Acute (9) LEO (acute kidney injury): Status: Acute (10) Acute exacerbation of congestive heart failure: Status: Acute (11) Pneumonia: Status: Acute (12) Essential hypertension: Status: Acute (13) Acute respiratory failure with hypoxia: Status: Acute Plan The plan therefore is to simply sedate with dexmedetomidine and and to proceed after explaining to the family with and bronchoscopic ultrasound and biopsy of the paratracheal lymph nodes and then will work on the ventilator weaning process Quality Stroke Does the patient have a stroke diagnosis?: No VTE Prior VTE?: No VTE Risk Level:: Medical - moderate - high VTE Device Contraindication: Treatment Not Indicated VTE Drug Contraindication: N/A - Med Ordered
[2021-11-30 11:43] LABS: Glucose, Whole Blood 44 mg/dL (60-115)
[2021-11-30 11:43] LABS: Glucose, Whole Blood 56 mg/dL (60-115)
[2021-11-30] MEDS: Dextrose 50 % 25 GM/50 ML SYRINGE IVPUSH (12:19)
[2021-11-30] MEDS: dexmedeTOMIDidine HCL/NS 400 MCG/100 ML INFUS..BTL 6.9 MCG IVCONT (12:23)
--- NOTE | 2021-11-30 12:39 | MHC.SHP ---
Pre-Procedural Eval Section A Date of Service: 11/30/21 The patient is an INPATIENT: Yes Section B Chief Complaint: Acute respiratory failure Allergies: Allergies Allergy/AdvReac Type Severity Reaction Status Date / Time oxycodone [From Percocet] Allergy Intermediate Rash Verified 11/19/21 17:16 Plan I have reviewed the history and physical and performed a pertinent physical examination on my patient. No changes have occurred unless specified.
[2021-11-30 13:31] LABS: Glucose, Whole Blood 79 mg/dL (60-115)
[2021-11-30 18:28] LABS: Glucose, Whole Blood 119 mg/dL (60-115)
[2021-11-30] MEDS: Insulin Glargine,Hum.rec.anlog 100 UNIT/ML 10 ML VIAL 25 UNIT SUBCUT (19:50)
--- NOTE | 2021-11-30 20:26 | PM.CNPUL ---
History of Present Illness History of Present Illness Consult date: 11/30/21 Chief complaint: Acute respiratory failure Narrative: This is an inpatient pulmonary conultation. The patient is a? 71-year-old female with a past medical history of? COPD (on home 02), congestive heart failure, diabetes mellitus? type 2,? chronic kidney disease,? hyperlipidemia, hypertension, hypothyroidism, peripheral vascular disease,? and recent COVID infection with admission x 1 month ago? who presented to the emergency room? via EMS with complaint of dyspnea.? Per EMS, patient?s saturation 68% on room air,? low 70s on 2 L via nasal cannula,? she was placed on CPAP during? transfer to hospital.? On arrival to the emergency room? she was satting 79% on CPAP, obtunded, very tachypneic requiring emergent intubation.?She was intubated and underwent bilateral thoracentesis. Effusions noted to be transudative. Chest CTA:? no pulmonary embolism.? Multifocal areas of consolidation more on left lower lobe along with significant LN. Abdominal CT: Persistent mediastinal lymphadenopathy. There is retroperitoneal lymphadenopathy. Enlarged right inguinal lymph node. These findings are nonspecific. Metastatic disease is possible. S/P FNA of the inguinal LN demonstrating an atypical B cell linage. However, not enough to make a diagnosis, therefore apulmonary consultation was requested for mediastinal LN sampling. The patient is non verbal. All the information was gathered from the chart. Review of Systems Review of Systems: Yes unobtainable due to endotracheal tube PMFSH Past Medical History Medical History (Updated 11/30/21 @ 20:33 by Blaise Julian MD) CKD (chronic kidney disease) Congestive heart failure COVID Diabetes mellitus with insulin therapy HLD (hyperlipidemia) HTN (hypertension) Hypothyroidism Lower extremity edema Lymphadenopathy, mediastinal Migraine Obesity Pleural effusion Pseudotumor cerebri PVD (peripheral vascular disease) Family History Family History Mother Heart attack, Onset Age: 92 Father Heart attack, Onset Age: 66 Other Diabetes Surgical History Surgical History (Updated 11/25/21 @ 16:34 by Maribell Ruiz MD) H/O cataract extraction H/O hysterectomy for benign disease Hx of cholecystectomy S/P appendectomy Social History Social History Alcohol intake: never Patient Tobacco Use Status: Never used Tobacco Advance Directives Date on File: 09/26/20 service: No Current occupational status: disabled Meds Allergies Allergy/AdvReac Type Severity Reaction Status Date / Time oxycodone [From Percocet] Allergy Intermediate Rash Verified 11/19/21 17:16 Active Medications: Current Medications Acetaminophen (Acetaminophen Oral Liquid 650 Mg/20.3 Ml Solution) 650 mg PO Q6H PRN PRN Reason: Fever >101 Last Admin: 11/28/21 01:41 Dose: 650 mg Albuterol/Ipratropium (Albuterol/Iprat 2.5/0.5mg 3 Ml Ampul.Neb) 3 ml INHALE RQ4H [facility] Last Admin: 11/30/21 19:06 Dose: 3 ml Chlorhexidine Gluconate (Chlorhexidine Gluc Oral Rinse 15 Ml Mouthwash) 15 ml BUCCAL TID ALAN Last Admin: 11/30/21 19:50 Dose: 15 ml Heparin Sodium (Porcine) (Heparin Sodium,Porcine 5,000 Unit/Ml Vial) 5,000 unit SUBCUT Q8H ALAN Last Admin: 11/30/21 15:41 Dose: 5,000 unit Furosemide 200 mg/ Sodium (Chloride) 100 mls @ 5 mls/hr IVCONT .Q20H [facility] Last Infusion: 11/30/21 09:34 Dose: 0 mg/hr, 0 mls/hr Potassium Chloride/Dextrose (Kcl 20 Meq In 5 % Dextrose) 20 meq in 1,000 mls @ 80 mls/hr IVCONT .[id number] [facility] Last Admin: 11/30/21 19:51 Dose: Not Given Dexmedetomidine HCl (Precedex) 400 mcg in 100 mls @ 0 mls/hr IVCONT .Q0M ALAN; Protocol Last Titration: 11/30/21 17:00 Dose: 0 mcg/kg/hr, 0.1 mls/hr Insulin Glargine (Insulin Glargine,Hum.Rec.Anlog 100 Unit/Ml 10 Ml Vial) 25 unit SUBCUT BID [facility] Last Admin: 11/30/21 19:50 Dose: 25 unit Insulin Human Lispro (Insulin Lispro 100 Unit/Ml 3 Ml Vial) 0 unit SUBCUT Q6H [facility]; Protocol Last Admin: 11/30/21 18:28 Dose: Not Given Nystatin (Nystatin Powder 15 Gm Bottle) 1 appl TOPICAL BID [facility]; Protocol Last Admin: 11/30/21 19:50 Dose: 1 appl Omeprazole (Omeprazole 20 Mg/10 Ml Susp.Recon) 40 mg OG-TUBE DAILY@0630 [facility] Last Admin: 11/30/21 06:29 Dose: 40 mg Home Medications Medication Instructions Recorded Confirmed Last Taken Type amitriptyline 50 mg tablet 25 mg PO DAILY 10/08/21 11/20/21 Unknown History aspirin 325 mg tablet 325 mg PO DAILY 10/08/21 11/20/21 Unknown History brinzolamide 1 %-brimonidine 0.2 % 1 drp ophthalmic-Right BID 10/08/21 11/20/21 Unknown History eye drops,suspension (Simbrinza) chlordiazepoxide HCl 10 mg capsule 10 mg PO BEDTIME 10/08/21 11/20/21 Unknown History citalopram 20 mg tablet 20 mg PO DAILY 10/08/21 11/20/21 Unknown History clonazepam 0.5 mg tablet 0.5 mg PO BID 10/08/21 11/20/21 Unknown History docusate sodium 100 mg tablet 100 mg PO DAILY 10/08/21 11/20/21 Unknown History furosemide 40 mg tablet 40 tab PO BID@0900,1800 10/08/21 11/20/21 Unknown History hydroxychloroquine 200 mg tablet 200 mg PO BID 10/08/21 11/20/21 Unknown History insulin glargine 100 unit/mL (3 80 unit subcut BEDTIME 10/08/21 11/20/21 Unknown History mL) subcutaneous pen (Lantus Solostar U-100 Insulin) insulin lispro protamine-lispro 7 - 15 ea subcut TIDAC 10/08/21 11/20/21 Unknown History 100 unit/mL (75-25) subcutaneous pen levothyroxine 175 mcg tablet 175 mcg PO DAILY@0600 10/08/21 11/20/21 Unknown History multivitamin 1 tab PO DAILY 10/08/21 11/20/21 Unknown History netarsudil 0.02 %-latanoprost 1 drp ophthalmic (eye) BEDTIME 10/08/21 11/20/21 Unknown History 0.005 % eye drops (Rocklatan) simvastatin 20 mg tablet 20 mg PO BEDTIME 10/08/21 11/20/21 Unknown History sitagliptin 100 mg tablet (Januvia) 100 mg PO DAILY 10/08/21 11/20/21 Unknown History latanoprost 0.005 % eye drops 1 drp ophthalmic (eye) BEDTIME 11/20/21 11/20/21 Unknown History Physical Exam Vital Signs: Vital Signs: Last Vital Signs Temp 99.2 F 11/30/21 20:00 Pulse 65 11/30/21 20:00 Resp 18 11/30/21 20:00 BP 101/34 L 11/30/21 20:00 Pulse Ox 92 11/30/21 20:00 O2 Del Method 11/30/21 19:00 FiO2 25 11/30/21 20:00 BMI result Body Mass Index 50.6 Const: General: Physically active Neck: Neck: Yes supple Resp: Auscultation: diminished lung sounds Cardio: Rate: regular rate GI: Palpation (GI): Soft to palpation Extrem: Other: Edema Results Laboratory Findings CBC and BMP: 11/30/21 05:05 11/30/21 05:05 ABG, PT/INR, D-dimer: PT/INR, D-dimer PT 12.4 SEC (10.0-13.1) 11/19/21 18:37 INR 1.1 (0.9-1.1) 11/19/21 18:37 Abnormal lab findings: Abnormal Labs 11/19/21 11/19/21 11/19/21 18:37 18:37 18:38 WBC 16.7 H RBC 4.02 L Hgb 10.1 L Hct 33.3 L MCH 25.1 L MCHC 30.3 L RDW MPV Immature Gran % (Auto) 0.7 H Neut % (Auto) 88.5 H Lymph % (Auto) 3.5 L [place] % (Auto) Eos % (Auto) Lymph # (Auto) 0.6 L [place] # (Auto) Eos # (Auto) Abs Immat Gran (auto) 0.11 H Absolute Neuts (auto) 14.8 H Absolute Nucleated RBC ABG pO2 at Pt Temp VBG pH 7.50 H VBG HCO3 Sodium Potassium Carbon Dioxide Anion Gap BUN Creatinine POC Glucose Random Glucose Uric Acid Calcium Phosphorus Magnesium Lactate Dehydrogenase Troponin I High Sens 21.9 H D C-Reactive Protein B-Natriuretic Peptide Total Protein Albumin Urine Protein Urine RBC 11/19/21 11/19/21 11/20/21 18:41 18:42 05:17 WBC 13.5 H RBC 3.63 L Hgb 9.0 L Hct 29.6 L MCH 24.8 L MCHC 30.4 L RDW MPV Immature Gran % (Auto) 0.6 H Neut % (Auto) 78.1 H Lymph % (Auto) 7.5 L [place] % (Auto) Eos % (Auto) Lymph # (Auto) 1.0 L [place] # (Auto) 1.4 H Eos # (Auto) Abs Immat Gran (auto) 0.08 H Absolute Neuts (auto) 10.6 H Absolute Nucleated RBC ABG pO2 at Pt Temp VBG pH VBG HCO3 Sodium Potassium Carbon Dioxide Anion Gap BUN 20 H D Creatinine POC Glucose Random Glucose 199 H Uric Acid Calcium Phosphorus Magnesium Lactate Dehydrogenase Troponin I High Sens C-Reactive Protein B-Natriuretic Peptide 304 H Total Protein 6.2 L Albumin 3.2 L Urine Protein Urine RBC 11/20/21 11/20/21 11/20/21 05:17 05:20 18:02 WBC RBC Hgb Hct MCH MCHC RDW MPV Immature Gran % (Auto) Neut % (Auto) Lymph % (Auto) [place] % (Auto) Eos % (Auto) Lymph # (Auto) [place] # (Auto) Eos # (Auto) Abs Immat Gran (auto) Absolute Neuts (auto) Absolute Nucleated RBC ABG pO2 at Pt Temp VBG pH 7.48 H VBG HCO3 27 H Sodium Potassium Carbon Dioxide Anion Gap BUN 21 H 23 H Creatinine 1.44 H POC Glucose Random Glucose 153 H Uric Acid Calcium 8.3 L Phosphorus Magnesium Lactate Dehydrogenase Troponin I High Sens C-Reactive Protein B-Natriuretic Peptide Total Protein 5.6 L Albumin 3.0 L Urine Protein Urine RBC 11/21/21 11/21/21 11/21/21 05:12 05:12 05:12 WBC 16.2 H RBC 3.36 L Hgb 8.5 L Hct 27.5 L MCH 25.3 L MCHC 30.9 L RDW 16.4 H MPV Immature Gran % (Auto) 1.3 H Neut % (Auto) 80.2 H Lymph % (Auto) 5.7 L [place] % (Auto) Eos % (Auto) Lymph # (Auto) 0.9 L [place] # (Auto) 1.6 H Eos # (Auto) Abs Immat Gran (auto) 0.21 H Absolute Neuts (auto) 13.0 H Absolute Nucleated RBC ABG pO2 at Pt Temp VBG pH VBG HCO3 Sodium Potassium Carbon Dioxide Anion Gap BUN 26 H Creatinine 1.83 H POC Glucose Random Glucose 290 H Uric Acid Calcium 8.1 L Phosphorus 4.8 H Magnesium Lactate Dehydrogenase Troponin I High Sens 48.4 H D C-Reactive Protein B-Natriuretic Peptide Total Protein Albumin Urine Protein Urine RBC 11/21/21 11/21/21 11/21/21 05:23 11:02 17:45 WBC RBC Hgb Hct MCH MCHC RDW MPV Immature Gran % (Auto) Neut % (Auto) Lymph % (Auto) [place] % (Auto) Eos % (Auto) Lymph # (Auto) [place] # (Auto) Eos # (Auto) Abs Immat Gran (auto) Absolute Neuts (auto) Absolute Nucleated RBC ABG pO2 at Pt Temp 55 L VBG pH VBG HCO3 Sodium Potassium Carbon Dioxide Anion Gap BUN Creatinine POC Glucose 255 H 154 H Random Glucose Uric Acid Calcium Phosphorus Magnesium Lactate Dehydrogenase Troponin I High Sens C-Reactive Protein B-Natriuretic Peptide Total Protein Albumin Urine Protein Urine RBC 11/22/21 11/22/21 11/22/21 05:03 05:03 07:59 WBC 14.3 H RBC 3.39 L Hgb 8.8 L Hct 28.7 L MCH 26.0 L MCHC 30.7 L RDW 17.2 H MPV Immature Gran % (Auto) 1.5 H Neut % (Auto) Lymph % (Auto) 8.0 L [place] % (Auto) 11.7 H Eos % (Auto) 6.1 H Lymph # (Auto) 1.1 L [place] # (Auto) 1.7 H Eos # (Auto) 0.9 H Abs Immat Gran (auto) 0.22 H Absolute Neuts (auto) 10.3 H Absolute Nucleated RBC 0.020 H ABG pO2 at Pt Temp VBG pH VBG HCO3 Sodium Potassium Carbon Dioxide Anion Gap BUN 37 H Creatinine 2.70 H POC Glucose 117 H Random Glucose Uric Acid Calcium 7.8 L Phosphorus 5.4 H Magnesium Lactate Dehydrogenase Troponin I High Sens C-Reactive Protein B-Natriuretic Peptide Total Protein Albumin 3.2 L Urine Protein Urine RBC 11/22/21 11/22/21 11/23/21 12:00 17:27 00:08 WBC RBC Hgb Hct MCH MCHC RDW MPV Immature Gran % (Auto) Neut % (Auto) Lymph % (Auto) [place] % (Auto) Eos % (Auto) Lymph # (Auto) [place] # (Auto) Eos # (Auto) Abs Immat Gran (auto) Absolute Neuts (auto) Absolute Nucleated RBC ABG pO2 at Pt Temp VBG pH VBG HCO3 Sodium Potassium Carbon Dioxide Anion Gap BUN Creatinine POC Glucose 129 H 159 H 135 H Random Glucose Uric Acid Calcium Phosphorus Magnesium Lactate Dehydrogenase Troponin I High Sens C-Reactive Protein B-Natriuretic Peptide Total Protein Albumin Urine Protein Urine RBC 11/23/21 11/23/21 11/23/21 05:05 05:05 05:12 WBC 16.7 H RBC 3.57 L Hgb 9.0 L Hct 29.7 L MCH 25.2 L MCHC 30.3 L RDW 16.5 H MPV Immature Gran % (Auto) 2.4 H Neut % (Auto) 76.4 H Lymph % (Auto) 5.3 L [place] % (Auto) 11.3 H Eos % (Auto) 4.2 H Lymph # (Auto) 0.9 L [place] # (Auto) 1.9 H Eos # (Auto) 0.7 H Abs Immat Gran (auto) 0.40 H Absolute Neuts (auto) 12.7 H Absolute Nucleated RBC ABG pO2 at Pt Temp VBG pH VBG HCO3 19 L Sodium Potassium Carbon Dioxide Anion Gap 21 H BUN 46 H Creatinine 3.35 H POC Glucose Random Glucose 175 H Uric Acid Calcium 7.8 L Phosphorus 7.0 H Magnesium Lactate Dehydrogenase Troponin I High Sens C-Reactive Protein B-Natriuretic Peptide Total Protein Albumin 3.2 L Urine Protein Urine RBC 11/23/21 11/23/21 11/23/21 06:18 11:31 15:41 WBC RBC Hgb Hct MCH MCHC RDW MPV Immature Gran % (Auto) Neut % (Auto) Lymph % (Auto) [place] % (Auto) Eos % (Auto) Lymph # (Auto) [place] # (Auto) Eos # (Auto) Abs Immat Gran (auto) Absolute Neuts (auto) Absolute Nucleated RBC ABG pO2 at Pt Temp VBG pH VBG HCO3 Sodium Potassium Carbon Dioxide Anion Gap BUN Creatinine POC Glucose 153 H 172 H Random Glucose Uric Acid Calcium Phosphorus Magnesium Lactate Dehydrogenase Troponin I High Sens C-Reactive Protein B-Natriuretic Peptide Total Protein Albumin Urine Protein 30 (1+) H Urine RBC 11/23/21 11/24/21 11/24/21 18:18 00:08 05:14 WBC 30.1 H* RBC 3.67 L Hgb 9.1 L Hct 30.5 L MCH 24.8 L MCHC 29.8 L RDW 16.7 H MPV Immature Gran % (Auto) Neut % (Auto) Lymph % (Auto) [place] % (Auto) Eos % (Auto) Lymph # (Auto) [place] # (Auto) Eos # (Auto) Abs Immat Gran (auto) Absolute Neuts (auto) Absolute Nucleated RBC ABG pO2 at Pt Temp VBG pH VBG HCO3 Sodium Potassium Carbon Dioxide Anion Gap BUN Creatinine POC Glucose 166 H 128 H Random Glucose Uric Acid Calcium Phosphorus Magnesium Lactate Dehydrogenase Troponin I High Sens C-Reactive Protein B-Natriuretic Peptide Total Protein Albumin Urine Protein Urine RBC 11/24/21 11/24/21 11/24/21 05:14 05:14 05:14 WBC RBC Hgb Hct MCH MCHC RDW MPV Immature Gran % (Auto) Neut % (Auto) Lymph % (Auto) [place] % (Auto) Eos % (Auto) Lymph # (Auto) [place] # (Auto) Eos # (Auto) Abs Immat Gran (auto) Absolute Neuts (auto) Absolute Nucleated RBC ABG pO2 at Pt Temp VBG pH VBG HCO3 Sodium Potassium Carbon Dioxide 21 L Anion Gap 21 H BUN 50 H Creatinine 3.10 H POC Glucose Random Glucose 224 H Uric Acid Calcium 7.8 L Phosphorus 8.3 H Magnesium Lactate Dehydrogenase Troponin I High Sens C-Reactive Protein 11.10 H B-Natriuretic Peptide 644 H Total Protein Albumin Urine Protein Urine RBC 11/24/21 11/24/21 11/24/21 05:19 05:50 11:43 WBC RBC Hgb Hct MCH MCHC RDW MPV Immature Gran % (Auto) Neut % (Auto) Lymph % (Auto) [place] % (Auto) Eos % (Auto) Lymph # (Auto) [place] # (Auto) Eos # (Auto) Abs Immat Gran (auto) Absolute Neuts (auto) Absolute Nucleated RBC ABG pO2 at Pt Temp VBG pH 7.28 L VBG HCO3 18 L Sodium Potassium Carbon Dioxide Anion Gap BUN Creatinine POC Glucose 215 H 204 H Random Glucose Uric Acid Calcium Phosphorus Magnesium Lactate Dehydrogenase Troponin I High Sens C-Reactive Protein B-Natriuretic Peptide Total Protein Albumin Urine Protein Urine RBC 11/24/21 11/25/21 11/25/21 23:51 05:24 05:24 WBC 20.5 H RBC 3.74 L Hgb 9.2 L Hct 30.3 L MCH 24.6 L MCHC 30.4 L RDW 16.9 H MPV Immature Gran % (Auto) 1.5 H Neut % (Auto) 93.2 H Lymph % (Auto) 3.0 L [place] % (Auto) 0.8 L Eos % (Auto) Lymph # (Auto) 0.6 L [place] # (Auto) Eos # (Auto) Abs Immat Gran (auto) 0.30 H Absolute Neuts (auto) 19.1 H Absolute Nucleated RBC ABG pO2 at Pt Temp VBG pH VBG HCO3 Sodium Potassium Carbon Dioxide Anion Gap 22 H BUN 52 H Creatinine 2.67 H POC Glucose 157 H Random Glucose 221 H Uric Acid 7.9 H Calcium 8.0 L Phosphorus Magnesium Lactate Dehydrogenase 266 H Troponin I High Sens C-Reactive Protein 10.88 H B-Natriuretic Peptide Total Protein 6.2 L Albumin 3.1 L Urine Protein Urine RBC 11/25/21 11/25/21 11/25/21 05:26 05:55 11:41 WBC RBC Hgb Hct MCH MCHC RDW MPV Immature Gran % (Auto) Neut % (Auto) Lymph % (Auto) [place] % (Auto) Eos % (Auto) Lymph # (Auto) [place] # (Auto) Eos # (Auto) Abs Immat Gran (auto) Absolute Neuts (auto) Absolute Nucleated RBC ABG pO2 at Pt Temp VBG pH VBG HCO3 20 L Sodium Potassium Carbon Dioxide Anion Gap BUN Creatinine POC Glucose 204 H 208 H Random Glucose Uric Acid Calcium Phosphorus Magnesium Lactate Dehydrogenase Troponin I High Sens C-Reactive Protein B-Natriuretic Peptide Total Protein Albumin Urine Protein Urine RBC 11/25/21 11/25/21 11/26/21 14:40 18:26 00:05 WBC RBC Hgb Hct MCH MCHC RDW MPV Immature Gran % (Auto) Neut % (Auto) Lymph % (Auto) [place] % (Auto) Eos % (Auto) Lymph # (Auto) [place] # (Auto) Eos # (Auto) Abs Immat Gran (auto) Absolute Neuts (auto) Absolute Nucleated RBC ABG pO2 at Pt Temp VBG pH VBG HCO3 Sodium Potassium Carbon Dioxide Anion Gap BUN Creatinine POC Glucose 248 H 251 H Random Glucose Uric Acid Calcium Phosphorus Magnesium Lactate Dehydrogenase Troponin I High Sens C-Reactive Protein B-Natriuretic Peptide Total Protein Albumin Urine Protein 30 (1+) H Urine RBC 3-5 H 11/26/21 11/26/21 11/26/21 05:10 05:10 05:49 WBC 20.8 H RBC 3.50 L Hgb 8.9 L Hct 28.4 L MCH 25.4 L MCHC RDW 17.2 H MPV Immature Gran % (Auto) Neut % (Auto) Lymph % (Auto) [place] % (Auto) Eos % (Auto) Lymph # (Auto) [place] # (Auto) Eos # (Auto) Abs Immat Gran (auto) Absolute Neuts (auto) Absolute Nucleated RBC ABG pO2 at Pt Temp VBG pH VBG HCO3 Sodium Potassium 3.2 L D Carbon Dioxide Anion Gap BUN 69 H Creatinine 2.61 H POC Glucose 254 H Random Glucose 273 H Uric Acid Calcium 8.0 L Phosphorus Magnesium 2.9 H Lactate Dehydrogenase Troponin I High Sens C-Reactive Protein B-Natriuretic Peptide Total Protein Albumin Urine Protein Urine RBC 11/26/21 11/26/21 11/26/21 12:21 13:04 18:19 WBC RBC Hgb Hct MCH MCHC RDW MPV Immature Gran % (Auto) Neut % (Auto) Lymph % (Auto) [place] % (Auto) Eos % (Auto) Lymph # (Auto) [place] # (Auto) Eos # (Auto) Abs Immat Gran (auto) Absolute Neuts (auto) Absolute Nucleated RBC ABG pO2 at Pt Temp VBG pH VBG HCO3 Sodium Potassium Carbon Dioxide Anion Gap BUN Creatinine POC Glucose 254 H 290 H 303 H Random Glucose Uric Acid Calcium Phosphorus Magnesium Lactate Dehydrogenase Troponin I High Sens C-Reactive Protein B-Natriuretic Peptide Total Protein Albumin Urine Protein Urine RBC 11/26/21 11/27/21 11/27/21 21:12 00:00 05:15 WBC 20.1 H RBC 3.36 L Hgb 8.8 L Hct 28.2 L MCH 26.2 L MCHC RDW 17.8 H MPV Immature Gran % (Auto) Neut % (Auto) Lymph % (Auto) [place] % (Auto) Eos % (Auto) Lymph # (Auto) [place] # (Auto) Eos # (Auto) Abs Immat Gran (auto) Absolute Neuts (auto) Absolute Nucleated RBC ABG pO2 at Pt Temp VBG pH VBG HCO3 Sodium Potassium Carbon Dioxide Anion Gap BUN Creatinine POC Glucose 287 H 284 H Random Glucose Uric Acid Calcium Phosphorus Magnesium Lactate Dehydrogenase Troponin I High Sens C-Reactive Protein B-Natriuretic Peptide Total Protein Albumin Urine Protein Urine RBC 11/27/21 11/27/21 11/27/21 05:15 05:15 05:27 WBC RBC Hgb Hct MCH MCHC RDW MPV Immature Gran % (Auto) Neut % (Auto) Lymph % (Auto) [place] % (Auto) Eos % (Auto) Lymph # (Auto) [place] # (Auto) Eos # (Auto) Abs Immat Gran (auto) Absolute Neuts (auto) Absolute Nucleated RBC ABG pO2 at Pt Temp VBG pH VBG HCO3 27 H Sodium 147 H Potassium 3.1 L Carbon Dioxide Anion Gap BUN 68 H Creatinine 2.11 H POC Glucose Random Glucose 316 H Uric Acid Calcium 8.0 L Phosphorus Magnesium Lactate Dehydrogenase Troponin I High Sens C-Reactive Protein B-Natriuretic Peptide 1410 H Total Protein Albumin 3.0 L Urine Protein Urine RBC 11/27/21 11/27/21 11/27/21 05:30 11:54 18:03 WBC RBC Hgb Hct MCH MCHC RDW MPV Immature Gran % (Auto) Neut % (Auto) Lymph % (Auto) [place] % (Auto) Eos % (Auto) Lymph # (Auto) [place] # (Auto) Eos # (Auto) Abs Immat Gran (auto) Absolute Neuts (auto) Absolute Nucleated RBC ABG pO2 at Pt Temp VBG pH VBG HCO3 Sodium Potassium Carbon Dioxide Anion Gap BUN Creatinine POC Glucose 283 H 301 H 279 H Random Glucose Uric Acid Calcium Phosphorus Magnesium Lactate Dehydrogenase Troponin I High Sens C-Reactive Protein B-Natriuretic Peptide Total Protein Albumin Urine Protein Urine RBC 11/27/21 11/27/21 11/28/21 23:36 23:51 05:00 WBC 19.4 H RBC 3.63 L Hgb 9.2 L Hct 30.1 L MCH 25.3 L MCHC 30.6 L RDW 17.3 H MPV Immature Gran % (Auto) Neut % (Auto) Lymph % (Auto) [place] % (Auto) Eos % (Auto) Lymph # (Auto) [place] # (Auto) Eos # (Auto) Abs Immat Gran (auto) Absolute Neuts (auto) Absolute Nucleated RBC 0.030 H ABG pO2 at Pt Temp VBG pH VBG HCO3 Sodium Potassium Carbon Dioxide Anion Gap BUN Creatinine POC Glucose 282 H 282 H Random Glucose Uric Acid Calcium Phosphorus Magnesium Lactate Dehydrogenase Troponin I High Sens C-Reactive Protein B-Natriuretic Peptide Total Protein Albumin Urine Protein Urine RBC 11/28/21 11/28/21 11/28/21 05:00 05:14 05:57 WBC RBC Hgb Hct MCH MCHC RDW MPV Immature Gran % (Auto) Neut % (Auto) Lymph % (Auto) [place] % (Auto) Eos % (Auto) Lymph # (Auto) [place] # (Auto) Eos # (Auto) Abs Immat Gran (auto) Absolute Neuts (auto) Absolute Nucleated RBC ABG pO2 at Pt Temp VBG pH 7.53 H VBG HCO3 33 H Sodium 152 H Potassium Carbon Dioxide 31 H Anion Gap BUN 63 H Creatinine 1.80 H POC Glucose 258 H Random Glucose 302 H Uric Acid Calcium 8.0 L Phosphorus 1.9 L Magnesium Lactate Dehydrogenase Troponin I High Sens C-Reactive Protein B-Natriuretic Peptide Total Protein Albumin 2.9 L Urine Protein Urine RBC 11/28/21 11/28/21 11/28/21 11:48 17:56 23:33 WBC RBC Hgb Hct MCH MCHC RDW MPV Immature Gran % (Auto) Neut % (Auto) Lymph % (Auto) [place] % (Auto) Eos % (Auto) Lymph # (Auto) [place] # (Auto) Eos # (Auto) Abs Immat Gran (auto) Absolute Neuts (auto) Absolute Nucleated RBC ABG pO2 at Pt Temp VBG pH VBG HCO3 Sodium Potassium Carbon Dioxide Anion Gap BUN Creatinine POC Glucose 351 H* 294 H 300 H Random Glucose Uric Acid Calcium Phosphorus Magnesium Lactate Dehydrogenase Troponin I High Sens C-Reactive Protein B-Natriuretic Peptide Total Protein Albumin Urine Protein Urine RBC 11/29/21 11/29/21 11/29/21 05:10 05:10 05:33 WBC 23.7 H RBC 4.00 L Hgb 10.0 L Hct 33.2 L MCH 25.0 L MCHC 30.1 L RDW 17.8 H MPV Immature Gran % (Auto) Neut % (Auto) Lymph % (Auto) [place] % (Auto) Eos % (Auto) Lymph # (Auto) [place] # (Auto) Eos # (Auto) Abs Immat Gran (auto) Absolute Neuts (auto) Absolute Nucleated RBC 0.030 H ABG pO2 at Pt Temp VBG pH 7.48 H VBG HCO3 35 H Sodium 150 H Potassium 3.1 L Carbon Dioxide 32 H Anion Gap BUN 55 H Creatinine 1.50 H POC Glucose Random Glucose 243 H Uric Acid Calcium 7.5 L D Phosphorus 1.4 L Magnesium Lactate Dehydrogenase Troponin I High Sens C-Reactive Protein B-Natriuretic Peptide Total Protein Albumin Urine Protein Urine RBC 11/29/21 11/29/21 11/29/21 06:30 11:24 17:09 WBC RBC Hgb Hct MCH MCHC RDW MPV Immature Gran % (Auto) Neut % (Auto) Lymph % (Auto) [place] % (Auto) Eos % (Auto) Lymph # (Auto) [place] # (Auto) Eos # (Auto) Abs Immat Gran (auto) Absolute Neuts (auto) Absolute Nucleated RBC ABG pO2 at Pt Temp VBG pH VBG HCO3 Sodium 150 H Potassium Carbon Dioxide 31 H Anion Gap BUN 51 H Creatinine 1.57 H POC Glucose 224 H 199 H Random Glucose 178 H Uric Acid Calcium 7.4 L Phosphorus Magnesium Lactate Dehydrogenase Troponin I High Sens C-Reactive Protein B-Natriuretic Peptide Total Protein Albumin Urine Protein Urine RBC 11/29/21 11/30/21 11/30/21 18:13 00:37 05:05 WBC 22.2 H RBC 3.66 L Hgb 9.3 L Hct 31.2 L MCH 25.4 L MCHC 29.8 L RDW 18.6 H MPV 12.8 H Immature Gran % (Auto) Neut % (Auto) Lymph % (Auto) [place] % (Auto) Eos % (Auto) Lymph # (Auto) [place] # (Auto) Eos # (Auto) Abs Immat Gran (auto) Absolute Neuts (auto) Absolute Nucleated RBC 0.020 H ABG pO2 at Pt Temp VBG pH VBG HCO3 Sodium Potassium Carbon Dioxide Anion Gap BUN Creatinine POC Glucose 155 H 124 H Random Glucose Uric Acid Calcium Phosphorus Magnesium Lactate Dehydrogenase Troponin I High Sens C-Reactive Protein B-Natriuretic Peptide Total Protein Albumin Urine Protein Urine RBC 11/30/21 11/30/21 11/30/21 05:05 05:05 05:11 WBC RBC Hgb Hct MCH MCHC RDW MPV Immature Gran % (Auto) Neut % (Auto) Lymph % (Auto) [place] % (Auto) Eos % (Auto) Lymph # (Auto) [place] # (Auto) Eos # (Auto) Abs Immat Gran (auto) Absolute Neuts (auto) Absolute Nucleated RBC ABG pO2 at Pt Temp VBG pH 7.48 H VBG HCO3 31 H Sodium 149 H Potassium 3.2 L Carbon Dioxide 31 H Anion Gap BUN 49 H Creatinine 1.57 H POC Glucose Random Glucose Uric Acid Calcium 7.3 L Phosphorus Magnesium Lactate Dehydrogenase Troponin I High Sens C-Reactive Protein B-Natriuretic Peptide 246 H Total Protein Albumin Urine Protein Urine RBC 11/30/21 11/30/21 11/30/21 11:37 11:40 18:24 WBC RBC Hgb Hct MCH MCHC RDW MPV Immature Gran % (Auto) Neut % (Auto) Lymph % (Auto) [place] % (Auto) Eos % (Auto) Lymph # (Auto) [place] # (Auto) Eos # (Auto) Abs Immat Gran (auto) Absolute Neuts (auto) Absolute Nucleated RBC ABG pO2 at Pt Temp VBG pH VBG HCO3 Sodium Potassium Carbon Dioxide Anion Gap BUN Creatinine POC Glucose 44 L* 56 L* 119 H Random Glucose Uric Acid Calcium Phosphorus Magnesium Lactate Dehydrogenase Troponin I High Sens C-Reactive Protein B-Natriuretic Peptide Total Protein Albumin Urine Protein Urine RBC Microbiology: Microbiology 11/25/21 14:57 Blood - Venous Blood Culture - Final No growth after 5 days. 11/25/21 14:57 Blood - Venous Blood Culture - Final No growth after 5 days. 11/25/21 09:30 Pleural Fluid Direct Acid Fast Bacilli Smear - Final 11/25/21 09:30 Pleural Fluid Fungal Identification - Preliminary No growth to date. 11/29/21 22:31 Urine Catheterized - Turner Catheter Urine Culture - Preliminary No growth to date. 11/25/21 09:30 Thoracentesis Fluid Gram Stain - Final 11/25/21 09:30 Thoracentesis Fluid Anaerobic Culture - Final NO GROWTH AFTER 5 DAYS 11/25/21 09:30 Thoracentesis Fluid Body Fluid Culture - Final No growth after 2 days 11/27/21 13:49 Thoracentesis Fluid Gram Stain - Final 11/27/21 13:49 Thoracentesis Fluid Anaerobic Culture - Preliminary No growth to date. 11/27/21 13:49 Thoracentesis Fluid Body Fluid Culture - Final No growth after 2 days 11/25/21 15:30 Sputum - Suctioned Gram Stain - Final 11/25/21 15:30 Sputum - Suctioned Sputum Culture - Final 11/19/21 18:42 Blood - Venous Blood Culture - Final No growth after 5 days. 11/19/21 18:37 Blood - Venous Blood Culture - Final No growth after 5 days. 11/20/21 03:44 Sputum - Suctioned Gram Stain - Final 11/20/21 03:44 Sputum - Suctioned Sputum Culture - Final 11/20/21 Unknown Urine Catheterized - Turner Catheter Urine Culture - Final No growth. Diagnostic Findings CT scan - chest: image reviewed Assessment and Plan (1) Respiratory failure: Qualifiers: Chronicity: acute Respiratory failure complication: hypoxia Qualified Code(s): J96.01 - Acute respiratory failure with hypoxia Status: Acute (2) Pleural effusion: Status: Acute transudative, likely CHF (3) Lymphadenopathy, mediastinal: Status: Acute Plan Plan for EBUS with needle aspiration and biopsies Procedures Date of Service Date of Service: 11/30/21
[2021-11-30 22:26] LABS: Alanine Aminotransferase 32 U/L (0-31); Albumin Level 2.8 g/dL (3.5-5.0); Alkaline Phosphatase 58 U/L (39-117); Anion Gap 15 (12-20); Aspartate Amino Transferase 30 U/L (5-31); Bilirubin Total 0.4 mg/dL (0.0-1.0); Blood Urea Nitrogen 44 mg/dL (9-16); Calcium 7.5 mg/dL (8.4-10.2); Carbon Dioxide 28 mmol/L (22-29); Chloride 104 mmol/L (96-108); Creatinine Clr Calc Pharmacy 49.2; Estimated Glomerular Filt Rate 34; Glucose Random 170 mg/dL (60-115); Potassium 3.1 mmol/L (3.3-5.1); Sodium 144 mmol/L (135-145); Total Protein 5.5 g/dL (6.5-8.0)
[2021-11-30 23:25] LABS: Glucose, Whole Blood 147 mg/dL (60-115)
[2021-12-01] VITALS (31 sets, daily range): BP systolic 112–157; BP diastolic 34–55; PULSE 52–107; RESP 16–28; TEMP 34.8–37.6; O2SAT 93–100; BMI 51.3
[2021-12-01] MEDS: Potassium Chloride Packet 20 MEQ PACKET 40 MEQ PO (00:29)
[2021-12-01 05:28] LABS: Glucose, Whole Blood 169 mg/dL (60-115)
[2021-12-01] MEDS: Insulin Lispro 100 UNIT/ML 3 ML VIAL SUBCUT (05:35)
[2021-12-01] MEDS: Heparin Sodium,Porcine 5,000 UNIT/ML VIAL 5000 UNIT SUBCUT ×3 (05:39→22:16)
[2021-12-01 05:53] LABS: VBG Base Excess 6.6 mmol/L; VBG HCO3 31 mmol/L (22-26); VBG pCO2 46 mmHg; VBG pH 7.43 (7.32-7.43); VBG pO2 35 mmHg
[2021-12-01 06:00] LABS: MANUAL DIFF FLAG NO
[2021-12-01 06:08] LABS: Venous Blood Gas Refer to POC result
[2021-12-01 06:10] LABS: Basophils Absolute Auto 0.1 X10*3/uL (0.0-0.2); Basophils Percent Auto 0.5 % (0-2); Eosinophils Absolute Auto 1.6 X10*3/uL (0.0-0.4); Eosinophils Percent Auto 7.9 % (0-4); Hematocrit 30.9 % (37.0-47.0); Hemoglobin 9.2 g/dl (12.0-16.0); Imm Gran Abs Auto 0.36 X10*3/uL (0.00-0.03); Imm Gran Pct Auto 1.8 % (0.0-0.4); Lymphocytes Absolute Auto 2.5 X10*3/uL (1.2-4.9); Lymphocytes Percent Auto 12.5 % (20-40); Mean Corpuscular HGB Conc 29.8 g/dl (31.0-35.0); Mean Platelet Volume 12.4 fL (9.4-12.3); Monocytes Absolute Auto 1.2 X10*3/uL (0.1-1.2); Neutrophils Absolute Auto 14.1 x10*3/uL (2.0-8.3); Neutrophils Percent Auto 71.3 % (45-73); Platelet Count 296 X10*3/uL (160-400); Red Blood Count 3.68 X10*6/uL (4.20-5.50); Red Cell Distribution Width 18.4 % (11.0-16.0); White Blood Count 19.8 X10*3/uL (4.8-10.8)
[2021-12-01] MEDS: dexmedeTOMIDidine HCL/NS 400 MCG/100 ML INFUS..BTL IVCONT (06:14)
[2021-12-01 06:29] LABS: B Type Natriuretic Peptide 304 pg/mL (<100)
[2021-12-01 06:33] LABS: Alanine Aminotransferase 30 U/L (0-31); Albumin Level 2.8 g/dL (3.5-5.0); Alkaline Phosphatase 61 U/L (39-117); Anion Gap 13 (12-20); Aspartate Amino Transferase 30 U/L (5-31); Bilirubin Total 0.4 mg/dL (0.0-1.0); Blood Urea Nitrogen 41 mg/dL (9-16); Calcium 7.2 mg/dL (8.4-10.2); Carbon Dioxide 28 mmol/L (22-29); Chloride 104 mmol/L (96-108); Creatinine Clr Calc Pharmacy 52.8; Estimated Glomerular Filt Rate 37; Glucose Random 184 mg/dL (60-115); Magnesium 2.1 mg/dL (1.6-2.6); Phosphorus 3.3 mg/dL (2.7-4.5); Potassium 3.3 mmol/L (3.3-5.1); Sodium 142 mmol/L (135-145); Total Protein 5.5 g/dL (6.5-8.0)
--- NOTE | 2021-12-01 06:35 | PC.NURSE ---
Shift eval 7p-7a: Patient tolerating vent with presedex drip. Patient on pressure support all night - maintaining volumes >7. RASS of -2 - arousable to verbal and tactile stimulation - grimaces, makes eye contact. In-line suctioning large amt clear sputum. Bathed x2 - at approx 0600, patient had very large BM - loose, light brown. Linens changed - [address] Tesfaye about patient temp remaining between 98.7-99.1 with cooling blanket - ok to take off cooling blanket at this time. Interdry & nystatin applied to abd & breast folds r/t fungal rashes. Chemistry repeated in the evening - serum potassium 3.1 (from 3.2 in AM) - Cici LEMUS made aware, ordered supplement K via OG tube. Tolerating tube feeds - no residuals.
[2021-12-01] MEDS: Potassium Chloride Packet 20 MEQ PACKET PO (09:16)
[2021-12-01] MEDS: Chlorhexidine Gluc Oral Rinse 15 ML MOUTHWASH BUCCAL ×3 (09:16→19:53)
[2021-12-01] MEDS: Insulin Glargine,Hum.rec.anlog 100 UNIT/ML 10 ML VIAL 25 UNIT SUBCUT (09:16)
[2021-12-01] MEDS: Lactated Ringers 1,000 ML 50 ML IVCONT (09:17)
[2021-12-01] MEDS: Nystatin Powder 15 GM BOTTLE 1 APPL TOPICAL (09:18)
[2021-12-01 12:08] LABS: Glucose, Whole Blood 93 mg/dL (60-115)
--- NOTE | 2021-12-01 14:45 | PM.CCPN ---
Subjective Subjective Date of Service: 12/01/21 Interval History: 71-year-old morbidly obese female a type 2 diabetic and hypertensive presents with acute hypoxic respiratory failure and volume seemed to be the etiology with there was no apparent infection and she had moderate bilateral pleural effusions with what seems to be a predominance of of lymphocytes and significant lymphadenopathy noted not just in the groin but valeriy aortic and paratracheal etc. 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 and therefore she is pending bronchoscopy with ultrasound and ultrasound-guided biopsy to seal that diagnosis and did a chest film Ng that implied plus Thora and by bedside echo again today as in each day he was she has normal LV and RV function and unfortunately the biopsy was postponed today because not NPO for a long enough period of time necessitating persistence on the ventilator and ongoing sedation with dexmedetomidine Critical Care Time (minutes): 35 Physical Exam Vital Signs: Vital Signs: Last Vital Signs Temp 99.1 F 12/01/21 14:00 Pulse 66 12/01/21 14:00 Resp 28 H 12/01/21 14:00 BP 145/43 H 12/01/21 14:00 Pulse Ox 96 12/01/21 14:00 O2 Del Method 12/01/21 14:00 FiO2 25 12/01/21 14:00 BMI result Body Mass Index 51.3 She does awaken and she is nonfocal neurologically Lungs without adventitious sounds no accessory muscle or diaphragmatic effort Bedside echo with preserved LV function Abdomen soft with no organomegaly Objective Data Labs CBC & Chem 7: 12/02/21 05:07 12/02/21 05:07 Labs: Laboratory Results - last 24 hr 11/30/21 11/30/21 11/30/21 18:24 21:47 23:20 WBC RBC Hgb Hct MCV MCH MCHC RDW Plt Count MPV Immature Gran % (Auto) Neut % (Auto) Lymph % (Auto) [place] % (Auto) Eos % (Auto) Baso % (Auto) Lymph # (Auto) [place] # (Auto) Eos # (Auto) Baso # (Auto) Abs Immat Gran (auto) Absolute Neuts (auto) Absolute Nucleated RBC Nucleated RBC % (auto) VBG pH VBG pCO2 VBG pO2 VBG HCO3 VBG O2 Saturation VBG Base Excess Sodium 144 Potassium 3.1 L Chloride 104 Carbon Dioxide 28 Anion Gap 15 BUN 44 H Creatinine 1.50 H Estim Creat Clear Calc 49.2 Estimated GFR 34 POC Glucose 119 H 147 H Random Glucose 170 H Calcium 7.5 L Phosphorus Magnesium Total Bilirubin 0.4 AST 30 D ALT 32 H Alkaline Phosphatase 58 D B-Natriuretic Peptide Total Protein 5.5 L Albumin 2.8 L 12/01/21 12/01/21 12/01/21 05:22 05:46 05:46 WBC 19.8 H RBC 3.68 L Hgb 9.2 L Hct 30.9 L MCV 84.0 MCH 25.0 L MCHC 29.8 L RDW 18.4 H Plt Count 296 MPV 12.4 H Immature Gran % (Auto) 1.8 H Neut % (Auto) 71.3 Lymph % (Auto) 12.5 L [place] % (Auto) 6.0 Eos % (Auto) 7.9 H Baso % (Auto) 0.5 Lymph # (Auto) 2.5 [place] # (Auto) 1.2 Eos # (Auto) 1.6 H Baso # (Auto) 0.1 Abs Immat Gran (auto) 0.36 H Absolute Neuts (auto) 14.1 H Absolute Nucleated RBC 0.000 Nucleated RBC % (auto) 0.0 VBG pH VBG pCO2 VBG pO2 VBG HCO3 VBG O2 Saturation VBG Base Excess Sodium 142 Potassium 3.3 Chloride 104 Carbon Dioxide 28 Anion Gap 13 BUN 41 H Creatinine 1.41 H Estim Creat Clear Calc 52.8 Estimated GFR 37 POC Glucose 169 H Random Glucose 184 H Calcium 7.2 L Phosphorus 3.3 Magnesium 2.1 Total Bilirubin 0.4 AST 30 ALT 30 Alkaline Phosphatase 61 B-Natriuretic Peptide Total Protein 5.5 L Albumin 2.8 L 12/01/21 12/01/21 12/01/21 05:46 05:46 05:47 WBC RBC Hgb Hct MCV MCH MCHC RDW Plt Count MPV Immature Gran % (Auto) Neut % (Auto) Lymph % (Auto) [place] % (Auto) Eos % (Auto) Baso % (Auto) Lymph # (Auto) [place] # (Auto) Eos # (Auto) Baso # (Auto) Abs Immat Gran (auto) Absolute Neuts (auto) Absolute Nucleated RBC Nucleated RBC % (auto) VBG pH 7.43 VBG pCO2 46 VBG pO2 35 VBG HCO3 31 H VBG O2 Saturation 58.0 VBG Base Excess 6.6 Sodium Potassium Chloride Carbon Dioxide Anion Gap BUN Creatinine Estim Creat Clear Calc Estimated GFR POC Glucose Random Glucose Calcium Phosphorus Magnesium Total Bilirubin AST ALT Alkaline Phosphatase B-Natriuretic Peptide 304 H Total Protein Albumin Cancelled 12/01/21 12:05 WBC RBC Hgb Hct MCV MCH MCHC RDW Plt Count MPV Immature Gran % (Auto) Neut % (Auto) Lymph % (Auto) [place] % (Auto) Eos % (Auto) Baso % (Auto) Lymph # (Auto) [place] # (Auto) Eos # (Auto) Baso # (Auto) Abs Immat Gran (auto) Absolute Neuts (auto) Absolute Nucleated RBC Nucleated RBC % (auto) VBG pH VBG pCO2 VBG pO2 VBG HCO3 VBG O2 Saturation VBG Base Excess Sodium Potassium Chloride Carbon Dioxide Anion Gap BUN Creatinine Estim Creat Clear Calc Estimated GFR POC Glucose 93 Random Glucose Calcium Phosphorus Magnesium Total Bilirubin AST ALT Alkaline Phosphatase B-Natriuretic Peptide Total Protein Albumin Microbiology Microbiology Results: Microbiology 11/29/21 22:31 Urine Catheterized - Turner Catheter Urine Culture - Final No growth. 11/27/21 13:49 Thoracentesis Fluid Gram Stain - Final 11/27/21 13:49 Thoracentesis Fluid Anaerobic Culture - Preliminary No growth to date. 11/27/21 13:49 Thoracentesis Fluid Body Fluid Culture - Final No growth after 2 days 11/29/21 22:30 Sputum - Suctioned Gram Stain - Final 11/29/21 22:30 Sputum - Suctioned Sputum Culture - Preliminary Gram negative sancho 11/29/21 22:29 Blood - Venous Blood Culture - Preliminary Prelim: GPC Gram Stain only 11/29/21 22:29 Blood - Venous Blood Culture - Preliminary No growth after 24 hours. 11/25/21 14:57 Blood - Venous Blood Culture - Final No growth after 5 days. 11/25/21 14:57 Blood - Venous Blood Culture - Final No growth after 5 days. 11/25/21 09:30 Pleural Fluid Direct Acid Fast Bacilli Smear - Final 11/25/21 09:30 Pleural Fluid Fungal Identification - Preliminary No growth to date. 11/25/21 09:30 Thoracentesis Fluid Gram Stain - Final 11/25/21 09:30 Thoracentesis Fluid Anaerobic Culture - Final NO GROWTH AFTER 5 DAYS 11/25/21 09:30 Thoracentesis Fluid Body Fluid Culture - Final No growth after 2 days 11/25/21 15:30 Sputum - Suctioned Gram Stain - Final 11/25/21 15:30 Sputum - Suctioned Sputum Culture - Final 11/19/21 18:42 Blood - Venous Blood Culture - Final No growth after 5 days. 11/19/21 18:37 Blood - Venous Blood Culture - Final No growth after 5 days. 11/20/21 03:44 Sputum - Suctioned Gram Stain - Final 11/20/21 03:44 Sputum - Suctioned Sputum Culture - Final 11/20/21 Unknown Urine Catheterized - Turner Catheter Urine Culture - Final No growth. Progress Note: A&P Assessment and plan (1) Lymphadenopathy, mediastinal: Status: Acute (2) Pleural effusion: Status: Acute (3) Respiratory failure: Status: Acute (4) Obesity: Status: Acute (5) Hypothyroidism: Status: Acute (6) HTN (hypertension): Status: Acute (7) Diabetes mellitus with insulin therapy: Status: Acute (8) Sepsis: Status: Acute (9) LEO (acute kidney injury): Status: Acute (10) Acute exacerbation of congestive heart failure: Status: Acute (11) Pneumonia: Status: Acute (12) Essential hypertension: Status: Acute (13) Acute respiratory failure with hypoxia: Status: Acute Plan Plan therefore is to keep her intubated and sedated in the hope that within 48 hours we can get the procedure done and then work on weaning the ventilator Quality Stroke Does the patient have a stroke diagnosis?: No VTE Prior VTE?: No VTE Risk Level:: Medical - moderate - high VTE Device Contraindication: Treatment Not Indicated VTE Drug Contraindication: N/A - Med Ordered
[2021-12-01 18:46] LABS: Glucose, Whole Blood 74 mg/dL (60-115)
[2021-12-01] MEDS: Dextrose 50 % 25 GM/50 ML SYRINGE IVPUSH (19:53)
[2021-12-01] MEDS: Albumin Human 25 % 100 ML IV ×2 (20:29→21:27)
[2021-12-01 21:12] LABS: Glucose, Whole Blood 107 mg/dL (60-115)
[2021-12-01] MEDS: dexmedeTOMIDidine HCL/NS 400 MCG/100 ML INFUS..BTL 6.9 MCG IVCONT (22:16)
[2021-12-01 23:34] LABS: Glucose, Whole Blood 89 mg/dL (60-115)
[2021-12-02] VITALS (30 sets, daily range): BP systolic 110–145; BP diastolic 36–81; PULSE 49–63; RESP 10–30; TEMP 34.7–38.3; O2SAT 89–100; BMI 52.0
[2021-12-02] MEDS: Lactated Ringers 1,000 ML 50 ML IVCONT (04:20)
[2021-12-02 05:12] LABS: VBG HCO3 26 mmol/L (22-26); VBG pCO2 37 mmHg; VBG pH 7.46 (7.32-7.43); VBG pO2 36 mmHg
[2021-12-02 05:28] LABS: Venous Blood Gas Refer to POC result
[2021-12-02 05:31] LABS: MANUAL DIFF FLAG NO
[2021-12-02 05:46] LABS: Basophils Absolute Auto 0.1 X10*3/uL (0.0-0.2); Basophils Percent Auto 0.4 % (0-2); Eosinophils Absolute Auto 1.2 X10*3/uL (0.0-0.4); Eosinophils Percent Auto 7.8 % (0-4); Hematocrit 28.1 % (37.0-47.0); Hemoglobin 8.4 g/dl (12.0-16.0); Imm Gran Abs Auto 0.25 X10*3/uL (0.00-0.03); Imm Gran Pct Auto 1.6 % (0.0-0.4); Lymphocytes Absolute Auto 2.1 X10*3/uL (1.2-4.9); Lymphocytes Percent Auto 13.1 % (20-40); Mean Corpuscular HGB Conc 29.9 g/dl (31.0-35.0); Mean Corpuscular Volume 83.6 fL (80.0-98.0); Mean Platelet Volume 12.8 fL (9.4-12.3); Monocytes Absolute Auto 0.9 X10*3/uL (0.1-1.2); Monocytes Percent Auto 5.8 % (2-11); Neutrophils Absolute Auto 11.2 x10*3/uL (2.0-8.3); Neutrophils Percent Auto 71.3 % (45-73); Platelet Count 256 X10*3/uL (160-400); Red Blood Count 3.36 X10*6/uL (4.20-5.50); White Blood Count 15.7 X10*3/uL (4.8-10.8)
[2021-12-02 05:56] LABS: Alanine Aminotransferase 25 U/L (0-31); Albumin Level 3.1 g/dL (3.5-5.0); Alkaline Phosphatase 53 U/L (39-117); Anion Gap 14 (12-20); Aspartate Amino Transferase 23 U/L (5-31); Bilirubin Total 0.3 mg/dL (0.0-1.0); Blood Urea Nitrogen 38 mg/dL (9-16); Calcium 7.7 mg/dL (8.4-10.2); Carbon Dioxide 25 mmol/L (22-29); Chloride 104 mmol/L (96-108); Creatinine Clr Calc Pharmacy 56.9; Estimated Glomerular Filt Rate 40; Glucose Random 82 mg/dL (60-115); Magnesium 2.1 mg/dL (1.6-2.6); Phosphorus 3.2 mg/dL (2.7-4.5); Potassium 2.9 mmol/L (3.3-5.1); Sodium 140 mmol/L (135-145); Total Protein 5.4 g/dL (6.5-8.0)
[2021-12-02 05:57] LABS: B Type Natriuretic Peptide 347 pg/mL (<100)
[2021-12-02] MEDS: Potassium Chloride Packet 20 MEQ PACKET 40 MEQ PO ×3 (08:58→17:33)
[2021-12-02] MEDS: Heparin Sodium,Porcine 5,000 UNIT/ML VIAL 5000 UNIT SUBCUT ×3 (08:58→20:36)
[2021-12-02] MEDS: Chlorhexidine Gluc Oral Rinse 15 ML MOUTHWASH BUCCAL ×3 (08:58→20:35)
[2021-12-02] MEDS: Spironolactone 25 MG TABLET PO (08:59)
[2021-12-02] MEDS: Nystatin Powder 15 GM BOTTLE 1 APPL TOPICAL ×2 (10:12→20:36)
--- NOTE | 2021-12-02 10:21 | PM.CCPN ---
Subjective Subjective Date of Service: 12/02/21 Interval History: 71-year-old female with acute hypoxic respiratory failure and underlying morbid obesity with type 2 diabetes and hypertension and preserved LV and RV function by bedside echo and there was a response to the point of almost weaning from the ventilator to diuresing but the live the predominance of of lymphocytes in the pleural fluid and the presence of extensive lymphadenopathy in in the mediastinum as well as the abdomen and groin and the results of the initial aspirate from the from the for from the groin lymph node could imply a monoclonal B-cell etiology with the lymphatic invasion of the lungs so were pending biopsy in the next 24 hours Overnight we have greater than 2 L positivity in in terms of intake and output and for that and were stopping IV fluids with a CVP now measured at 12 if it does not otherwise come down below 10 then we will diurese Critical Care Time (minutes): 35 Physical Exam Vital Signs: Vital Signs: Last Vital Signs Temp 100.0 F 12/02/21 10:00 Pulse 56 12/02/21 10:00 Resp 27 H 12/02/21 10:00 BP 119/40 L 12/02/21 10:00 Pulse Ox 98 12/02/21 10:00 O2 Del Method 12/02/21 10:00 FiO2 25 12/02/21 10:00 BMI result Body Mass Index 52.0 Diffusely edematous and still responsive despite the dexmedetomidine and nonfocal neurologically Abdomen soft tolerating feedings no organomegaly Chest without adventitious sounds Bedside echo with preserved LV systolic function Objective Data Labs CBC & Chem 7: 12/02/21 05:07 12/02/21 05:07 Labs: Laboratory Results - last 24 hr 12/01/21 12/01/21 12/01/21 12:05 18:42 21:09 WBC RBC Hgb Hct MCV MCH MCHC RDW Plt Count MPV Immature Gran % (Auto) Neut % (Auto) Lymph % (Auto) [place] % (Auto) Eos % (Auto) Baso % (Auto) Lymph # (Auto) [place] # (Auto) Eos # (Auto) Baso # (Auto) Abs Immat Gran (auto) Absolute Neuts (auto) Absolute Nucleated RBC Nucleated RBC % (auto) VBG pH VBG pCO2 VBG pO2 VBG HCO3 VBG O2 Saturation VBG Base Excess Sodium Potassium Chloride Carbon Dioxide Anion Gap BUN Creatinine Estim Creat Clear Calc Estimated GFR POC Glucose 93 74 107 Random Glucose Calcium Phosphorus Magnesium Total Bilirubin AST ALT Alkaline Phosphatase B-Natriuretic Peptide Total Protein Albumin 12/01/21 12/02/21 12/02/21 23:27 05:07 05:07 WBC 15.7 H RBC 3.36 L Hgb 8.4 L Hct 28.1 L MCV 83.6 MCH 25.0 L MCHC 29.9 L RDW 18.0 H Plt Count 256 MPV 12.8 H Immature Gran % (Auto) 1.6 H Neut % (Auto) 71.3 Lymph % (Auto) 13.1 L [place] % (Auto) 5.8 Eos % (Auto) 7.8 H Baso % (Auto) 0.4 Lymph # (Auto) 2.1 [place] # (Auto) 0.9 Eos # (Auto) 1.2 H Baso # (Auto) 0.1 Abs Immat Gran (auto) 0.25 H Absolute Neuts (auto) 11.2 H Absolute Nucleated RBC 0.000 Nucleated RBC % (auto) 0.0 VBG pH VBG pCO2 VBG pO2 VBG HCO3 VBG O2 Saturation VBG Base Excess Sodium 140 Potassium 2.9 L Chloride 104 Carbon Dioxide 25 Anion Gap 14 BUN 38 H Creatinine 1.32 Estim Creat Clear Calc 56.9 Estimated GFR 40 POC Glucose 89 Random Glucose 82 Calcium 7.7 L D Phosphorus 3.2 Magnesium 2.1 Total Bilirubin 0.3 AST 23 ALT 25 Alkaline Phosphatase 53 B-Natriuretic Peptide Total Protein 5.4 L Albumin 3.1 L 12/02/21 12/02/21 05:07 05:07 WBC RBC Hgb Hct MCV MCH MCHC RDW Plt Count MPV Immature Gran % (Auto) Neut % (Auto) Lymph % (Auto) [place] % (Auto) Eos % (Auto) Baso % (Auto) Lymph # (Auto) [place] # (Auto) Eos # (Auto) Baso # (Auto) Abs Immat Gran (auto) Absolute Neuts (auto) Absolute Nucleated RBC Nucleated RBC % (auto) VBG pH 7.46 H VBG pCO2 37 VBG pO2 36 VBG HCO3 26 VBG O2 Saturation 62.0 VBG Base Excess 3.0 Sodium Potassium Chloride Carbon Dioxide Anion Gap BUN Creatinine Estim Creat Clear Calc Estimated GFR POC Glucose Random Glucose Calcium Phosphorus Magnesium Total Bilirubin AST ALT Alkaline Phosphatase B-Natriuretic Peptide 347 H Total Protein Albumin Microbiology Microbiology Results: Microbiology 11/27/21 13:49 Thoracentesis Fluid Gram Stain - Final 11/27/21 13:49 Thoracentesis Fluid Anaerobic Culture - Final NO GROWTH AFTER 5 DAYS 11/27/21 13:49 Thoracentesis Fluid Body Fluid Culture - Final No growth after 2 days 11/29/21 22:29 Blood - Venous Blood Culture - Final Coag negative Staphylococcus 11/29/21 22:30 Sputum - Suctioned Gram Stain - Final 11/29/21 22:30 Sputum - Suctioned Sputum Culture - Preliminary Klebsiella pneumoniae 11/29/21 22:29 Blood - Venous Blood Culture - Preliminary No growth after 48 hours. 11/29/21 22:31 Urine Catheterized - Turner Catheter Urine Culture - Final No growth. 11/25/21 14:57 Blood - Venous Blood Culture - Final No growth after 5 days. 11/25/21 14:57 Blood - Venous Blood Culture - Final No growth after 5 days. 11/25/21 09:30 Pleural Fluid Direct Acid Fast Bacilli Smear - Final 11/25/21 09:30 Pleural Fluid Fungal Identification - Preliminary No growth to date. 11/25/21 09:30 Thoracentesis Fluid Gram Stain - Final 11/25/21 09:30 Thoracentesis Fluid Anaerobic Culture - Final NO GROWTH AFTER 5 DAYS 11/25/21 09:30 Thoracentesis Fluid Body Fluid Culture - Final No growth after 2 days 11/25/21 15:30 Sputum - Suctioned Gram Stain - Final 11/25/21 15:30 Sputum - Suctioned Sputum Culture - Final 11/19/21 18:42 Blood - Venous Blood Culture - Final No growth after 5 days. 11/19/21 18:37 Blood - Venous Blood Culture - Final No growth after 5 days. 11/20/21 03:44 Sputum - Suctioned Gram Stain - Final 11/20/21 03:44 Sputum - Suctioned Sputum Culture - Final 11/20/21 Unknown Urine Catheterized - Turner Catheter Urine Culture - Final No growth. Progress Note: A&P Assessment and plan (1) Lymphadenopathy, mediastinal: Status: Acute (2) Pleural effusion: Status: Acute (3) Respiratory failure: Status: Acute (4) Obesity: Status: Acute (5) Hypothyroidism: Status: Acute (6) HTN (hypertension): Status: Acute (7) Diabetes mellitus with insulin therapy: Status: Acute (8) Sepsis: Status: Acute (9) LEO (acute kidney injury): Status: Acute (10) Acute exacerbation of congestive heart failure: Status: Acute (11) Pneumonia: Status: Acute (12) Essential hypertension: Status: Acute (13) Acute respiratory failure with hypoxia: Status: Acute Plan Watch CVP off the Ringer's lactate and if it resolves to below 10 will just leave things as they are and I am going to initiate spironolactone and potassium replete and if need be diurese her later on with IV Lasix if the CVP does not spontaneously improve Quality Stroke Does the patient have a stroke diagnosis?: No VTE Prior VTE?: No VTE Risk Level:: Medical - moderate - high VTE Device Contraindication: Treatment Not Indicated VTE Drug Contraindication: N/A - Med Ordered
[2021-12-02] MEDS: dexmedeTOMIDidine HCL/NS 400 MCG/100 ML INFUS..BTL 6.9 MCG IVCONT (10:35)
--- NOTE | 2021-12-02 10:38 | MHC.CLN ---
F/U PT REMAINS INTUBATED DISCUSSED WITH TEAM AT ROUNDS PT TOLERATING NEPRO AT MAX GOAL RATE OF 30 ML/HR WITH 240ML FREE WATER FLUSHES Q 4HRS PROVIDES 1296 KCALS (22.8 G/KG IBW); 58 G PROTEIN (1.02 G/KG IBW), 1963 ML TOTAL WATER FROM FORMULA AND FLUSHES (34ML/KG) MONITOR TOLERANCE, RESIDUALS, AND LYTES.
[2021-12-02 11:59] LABS: Glucose, Whole Blood 99 mg/dL (60-115)
[2021-12-02] MEDS: Furosemide 40 MG/4 ML VIAL IVPUSH (12:12)
[2021-12-02 12:50] LABS: Appearance Urine Cloudy; Color Urine Yellow; Glucose Urine UA Negative (Negative); Leukocyte Esterase Urine Large (3+) (Negative); Nitrite Urine Negative (Negative); PH 6.5 (5.0-9.0); Urine Blood Moderate (2+) (Negative); Urine Ketones Negative (Negative); Urine Protein 30 (1+) mg/dL (Neg-Trace)
[2021-12-02] MEDS: Potassium Chloride/H20 20 MEQ/100 ML PIGGYBACK 100 MEQ IV (12:52)
[2021-12-02 12:57] LABS: Bacteria Urine 4+ (None Seen); RBC Urine >20 /HPF (0-2); Squamous Epithelial Cell Urine 0-2 /HPF (0-2); UACC Culture Trigger YES; WBC Clumps Urine Present; WBC Urine >50 /HPF (0-5)
--- NOTE | 2021-12-02 13:05 | P.PNNP_ITS ---
Subjective Subjective Date of Service: 12/02/21 Interval history: Events noted. Seen AM. All recent data reviewed Physical Exam Vital Signs: Vital Signs: Last Vital Signs Temp 100.2 F 12/02/21 12:00 Pulse 57 12/02/21 12:00 Resp 23 H 12/02/21 12:00 BP 132/44 L 12/02/21 12:00 Pulse Ox 96 12/02/21 12:00 O2 Del Method 12/02/21 12:00 FiO2 25 12/02/21 12:00 BMI result Body Mass Index 52.0 Const: General: no acute distress Resp: Auscultation: diminished lung sounds Cardio: Jugular venous distension: no JVD Rate: regular rate Heart soun ds: S1 normal heart sound present and S2 normal heart sound present GI: Palpation (GI): Soft to palpation Skin: General skin exam: no rashes or lesions noted Extrem: General: Yes no clubbing, cyanosis or edema Objective Data Labs CBC & Chem 7: 12/02/21 05:07 12/02/21 05:07 Labs: Laboratory Results - last 24 hr 11/25/21 11/25/21 12/01/21 10:34 10:34 18:42 WBC RBC Hgb Hct MCV MCH MCHC RDW Plt Count MPV Immature Gran % (Auto) Neut % (Auto) Lymph % (Auto) Dougherty % (Auto) Eos % (Auto) Baso % (Auto) Lymph # (Auto) Dougherty # (Auto) Eos # (Auto) Baso # (Auto) Abs Immat Gran (auto) Absolute Neuts (auto) Absolute Nucleated RBC Nucleated RBC % (auto) VBG pH VBG pCO2 VBG pO2 VBG HCO3 VBG O2 Saturation VBG Base Excess Sodium Potassium Chloride Carbon Dioxide Anion Gap BUN Creatinine Estim Creat Clear Calc Estimated GFR POC Glucose 74 Random Glucose Calcium Phosphorus Magnesium Total Bilirubin AST ALT Alkaline Phosphatase B-Natriuretic Peptide Total Protein Albumin Urine Color Urine Appearance Urine pH Ur Specific [place] Urine Protein Urine Glucose (UA) Urine Ketones Urine Blood Urine Nitrite Ur Leukocyte Esterase Urine RBC Urine WBC Urine WBC Clumps Ur Squamous Epith Cells Ur Transition Epith Cell Ur Renal Epithelial Cell Calcium Oxalate Crystal Leucine Crystals Cystine Crystals Tyrosine Crystals Other Crystals Urine Bacteria Urine Parasites Bilirubin Casts Epithelial Casts Fatty Casts Hyaline Casts Granular Casts Waxy Casts Broad Casts RBC Casts WBC Casts Other Casts Urine Trichomonas Urine Yeast Leuk/Lym Interpretation See Note See Note 12/01/21 12/01/21 12/02/21 21:09 23:27 05:07 WBC 15.7 H RBC 3.36 L Hgb 8.4 L Hct 28.1 L MCV 83.6 MCH 25.0 L MCHC 29.9 L RDW 18.0 H Plt Count 256 MPV 12.8 H Immature Gran % (Auto) 1.6 H Neut % (Auto) 71.3 Lymph % (Auto) 13.1 L Dougherty % (Auto) 5.8 Eos % (Auto) 7.8 H Baso % (Auto) 0.4 Lymph # (Auto) 2.1 Dougherty # (Auto) 0.9 Eos # (Auto) 1.2 H Baso # (Auto) 0.1 Abs Immat Gran (auto) 0.25 H Absolute Neuts (auto) 11.2 H Absolute Nucleated RBC 0.000 Nucleated RBC % (auto) 0.0 VBG pH VBG pCO2 VBG pO2 VBG HCO3 VBG O2 Saturation VBG Base Excess Sodium Potassium Chloride Carbon Dioxide Anion Gap BUN Creatinine Estim Creat Clear Calc Estimated GFR POC Glucose 107 89 Random Glucose Calcium Phosphorus Magnesium Total Bilirubin AST ALT Alkaline Phosphatase B-Natriuretic Peptide Total Protein Albumin Urine Color Urine Appearance Urine pH Ur Specific [place] Urine Protein Urine Glucose (UA) Urine Ketones Urine Blood Urine Nitrite Ur Leukocyte Esterase Urine RBC Urine WBC Urine WBC Clumps Ur Squamous Epith Cells Ur Transition Epith Cell Ur Renal Epithelial Cell Calcium Oxalate Crystal Leucine Crystals Cystine Crystals Tyrosine Crystals Other Crystals Urine Bacteria Urine Parasites Bilirubin Casts Epithelial Casts Fatty Casts Hyaline Casts Granular Casts Waxy Casts Broad Casts RBC Casts WBC Casts Other Casts Urine Trichomonas Urine Yeast Leuk/Lym Interpretation 12/02/21 12/02/21 12/02/21 05:07 05:07 05:07 WBC RBC Hgb Hct MCV MCH MCHC RDW Plt Count MPV Immature Gran % (Auto) Neut % (Auto) Lymph % (Auto) Dougherty % (Auto) Eos % (Auto) Baso % (Auto) Lymph # (Auto) Dougherty # (Auto) Eos # (Auto) Baso # (Auto) Abs Immat Gran (auto) Absolute Neuts (auto) Absolute Nucleated RBC Nucleated RBC % (auto) VBG pH 7.46 H VBG pCO2 37 VBG pO2 36 VBG HCO3 26 VBG O2 Saturation 62.0 VBG Base Excess 3.0 Sodium 140 Potassium 2.9 L Chloride 104 Carbon Dioxide 25 Anion Gap 14 BUN 38 H Creatinine 1.32 Estim Creat Clear Calc 56.9 Estimated GFR 40 POC Glucose Random Glucose 82 Calcium 7.7 L D Phosphorus 3.2 Magnesium 2.1 Total Bilirubin 0.3 AST 23 ALT 25 Alkaline Phosphatase 53 B-Natriuretic Peptide 347 H Total Protein 5.4 L Albumin 3.1 L Urine Color Urine Appearance Urine pH Ur Specific [place] Urine Protein Urine Glucose (UA) Urine Ketones Urine Blood Urine Nitrite Ur Leukocyte Esterase Urine RBC Urine WBC Urine WBC Clumps Ur Squamous Epith Cells Ur Transition Epith Cell Ur Renal Epithelial Cell Calcium Oxalate Crystal Leucine Crystals Cystine Crystals Tyrosine Crystals Other Crystals Urine Bacteria Urine Parasites Bilirubin Casts Epithelial Casts Fatty Casts Hyaline Casts Granular Casts Waxy Casts Broad Casts RBC Casts WBC Casts Other Casts Urine Trichomonas Urine Yeast Leuk/Lym Interpretation 12/02/21 12/02/21 11:48 12:24 WBC RBC Hgb Hct MCV MCH MCHC RDW Plt Count MPV Immature Gran % (Auto) Neut % (Auto) Lymph % (Auto) Dougherty % (Auto) Eos % (Auto) Baso % (Auto) Lymph # (Auto) Dougherty # (Auto) Eos # (Auto) Baso # (Auto) Abs Immat Gran (auto) Absolute Neuts (auto) Absolute Nucleated RBC Nucleated RBC % (auto) VBG pH VBG pCO2 VBG pO2 VBG HCO3 VBG O2 Saturation VBG Base Excess Sodium Potassium Chloride Carbon Dioxide Anion Gap BUN Creatinine Estim Creat Clear Calc Estimated GFR POC Glucose 99 Random Glucose Calcium Phosphorus Magnesium Total Bilirubin AST ALT Alkaline Phosphatase B-Natriuretic Peptide Total Protein Albumin Urine Color Yellow Urine Appearance Cloudy Urine pH 6.5 Ur Specific [place] 1.020 Urine Protein 30 (1+) H Urine Glucose (UA) Negative Urine Ketones Negative Urine Blood Moderate (2+) H Urine Nitrite Negative Ur Leukocyte Esterase Large (3+) H Urine RBC >20 H Urine WBC >50 H Urine WBC Clumps Present Ur Squamous Epith Cells 0-2 Ur Transition Epith Cell Cancelled Ur Renal Epithelial Cell Cancelled Calcium Oxalate Crystal Cancelled Leucine Crystals Cancelled Cystine Crystals Cancelled Tyrosine Crystals Cancelled Other Crystals Cancelled Urine Bacteria 4+ Urine Parasites Cancelled Bilirubin Casts Cancelled Epithelial Casts Cancelled Fatty Casts Cancelled Hyaline Casts 6-10 Granular Casts Cancelled Waxy Casts Cancelled Broad Casts Cancelled RBC Casts Cancelled WBC Casts Cancelled Other Casts Cancelled Urine Trichomonas Cancelled Urine Yeast Cancelled Leuk/Lym Interpretation Microbiology Microbiology Results: Microbiology 11/27/21 13:49 Thoracentesis Fluid Gram Stain - Final 11/27/21 13:49 Thoracentesis Fluid Anaerobic Culture - Final NO GROWTH AFTER 5 DAYS 11/27/21 13:49 Thoracentesis Fluid Body Fluid Culture - Final No growth after 2 days 11/29/21 22:29 Blood - Venous Blood Culture - Final Coag negative Staphylococcus 11/29/21 22:30 Sputum - Suctioned Gram Stain - Final 11/29/21 22:30 Sputum - Suctioned Sputum Culture - Preliminary Klebsiella pneumoniae 11/29/21 22:29 Blood - Venous Blood Culture - Preliminary No growth after 48 hours. 11/29/21 22:31 Urine Catheterized - Turner Catheter Urine Culture - Final No growth. 11/25/21 14:57 Blood - Venous Blood Culture - Final No growth after 5 days. 11/25/21 14:57 Blood - Venous Blood Culture - Final No growth after 5 days. 11/25/21 09:30 Pleural Fluid Direct Acid Fast Bacilli Smear - Final 11/25/21 09:30 Pleural Fluid Fungal Identification - Preliminary No growth to date. 11/25/21 09:30 Thoracentesis Fluid Gram Stain - Final 11/25/21 09:30 Thoracentesis Fluid Anaerobic Culture - Final NO GROWTH AFTER 5 DAYS 11/25/21 09:30 Thoracentesis Fluid Body Fluid Culture - Final No growth after 2 days 11/25/21 15:30 Sputum - Suctioned Gram Stain - Final 11/25/21 15:30 Sputum - Suctioned Sputum Culture - Final 11/19/21 18:42 Blood - Venous Blood Culture - Final No growth after 5 days. 11/19/21 18:37 Blood - Venous Blood Culture - Final No growth after 5 days. 11/20/21 03:44 Sputum - Suctioned Gram Stain - Final 11/20/21 03:44 Sputum - Suctioned Sputum Culture - Final 11/20/21 Unknown Urine Catheterized - Turner Catheter Urine Culture - Final No growth. Procedures Date of Service Date of Service: 12/02/21 Assessment & Plan Assessment and plan (1) LEO (acute kidney injury): Status: Acute Assessment and Plan: Has baseline CKD 3 with serum creatinine of 1.4 to 1.7 LEO due to tubular injury- resolved Urine output good ; D/Urban diuretics Renal functions stable.Keep K over 4 Continue rest of current supportive care Time Spent With Patient Time: Total time spent is greater than 50% in coordination of care (as documented) at patient's floor/unit and/or counseling patient: Progress Note: Quality Stroke Does the patient have a stroke diagnosis?: No
--- NOTE | 2021-12-02 14:57 | MHC.CM.PN ---
Pt remains in ICU, plan to keep pt intubated 2 more days, bronchoscopy & biopsy postponed until tomorrow and will be NPO (no feeds) after midnight for procedure. No plan for d/c at this time. [facility] and [facility] (for other facilities) are following and have been updated, [facility] also following and updated, CM will cont to follow d/c needs.
[2021-12-02 17:34] LABS: Glucose, Whole Blood 123 mg/dL (60-115)
[2021-12-02] MEDS: dexmedeTOMIDidine HCL/NS 400 MCG/100 ML INFUS..BTL 10.35 MCG IVCONT (20:36)
[2021-12-02 20:38] LABS: Glucose, Whole Blood 121 mg/dL (60-115)
[2021-12-02 23:42] LABS: Glucose, Whole Blood 136 mg/dL (60-115)
[2021-12-03] VITALS (29 sets, daily range): BP systolic 111–159; BP diastolic 38–56; PULSE 49–90; RESP 12–62; TEMP 34.7–38.7; O2SAT 90–97; BMI 52.0
[2021-12-03] MEDS: dexmedeTOMIDidine HCL/NS 400 MCG/100 ML INFUS..BTL 17.25 MCG IVCONT (03:48)
[2021-12-03 04:07] LABS: Glucose, Whole Blood 170 mg/dL (60-115)
[2021-12-03 05:39] LABS: VBG Base Excess -0.1 mmol/L; VBG HCO3 22 mmol/L (22-26); VBG pCO2 30 mmHg; VBG pH 7.47 (7.32-7.43); VBG pO2 33 mmHg
[2021-12-03 05:42] LABS: Venous Blood Gas Refer to POC result
[2021-12-03 05:48] LABS: MANUAL DIFF FLAG NO
[2021-12-03 05:53] LABS: Basophils Absolute Auto 0.1 X10*3/uL (0.0-0.2); Basophils Percent Auto 0.4 % (0-2); Eosinophils Percent Auto 6.1 % (0-4); Hematocrit 28.9 % (37.0-47.0); Hemoglobin 8.8 g/dl (12.0-16.0); Imm Gran Abs Auto 0.29 X10*3/uL (0.00-0.03); Imm Gran Pct Auto 1.8 % (0.0-0.4); Lymphocytes Absolute Auto 2.1 X10*3/uL (1.2-4.9); Lymphocytes Percent Auto 12.9 % (20-40); Mean Corpuscular HGB Conc 30.4 g/dl (31.0-35.0); Mean Corpuscular Hemoglobin 25.3 pg (27.0-33.0); Mean Platelet Volume 12.3 fL (9.4-12.3); Monocytes Absolute Auto 1.1 X10*3/uL (0.1-1.2); Monocytes Percent Auto 6.7 % (2-11); Neutrophils Absolute Auto 11.4 x10*3/uL (2.0-8.3); Neutrophils Percent Auto 72.1 % (45-73); Platelet Count 265 X10*3/uL (160-400); Red Blood Count 3.48 X10*6/uL (4.20-5.50); Red Cell Distribution Width 18.5 % (11.0-16.0); White Blood Count 15.9 X10*3/uL (4.8-10.8)
[2021-12-03 06:12] LABS: B Type Natriuretic Peptide 346 pg/mL (<100)
[2021-12-03 06:14] LABS: Alanine Aminotransferase 24 U/L (0-31); Alkaline Phosphatase 56 U/L (39-117); Anion Gap 13 (12-20); Aspartate Amino Transferase 24 U/L (5-31); Bilirubin Total 0.3 mg/dL (0.0-1.0); Blood Urea Nitrogen 36 mg/dL (9-16); Carbon Dioxide 24 mmol/L (22-29); Chloride 106 mmol/L (96-108); Creatinine Clr Calc Pharmacy 50.7; Estimated Glomerular Filt Rate 35; Glucose Random 170 mg/dL (60-115); Magnesium 2.1 mg/dL (1.6-2.6); Phosphorus 3.2 mg/dL (2.7-4.5); Potassium 3.9 mmol/L (3.3-5.1); Sodium 139 mmol/L (135-145); Total Protein 5.5 g/dL (6.5-8.0)
[2021-12-03] MEDS: Chlorhexidine Gluc Oral Rinse 15 ML MOUTHWASH BUCCAL ×3 (07:18→20:20)
[2021-12-03] MEDS: Piperacillin Sodium/Tazobactam 4.5 GM in 0.9 % Sodium Chloride 100 ML IV (07:19)
--- NOTE | 2021-12-03 07:22 | HO.ANESPROP2 ---
[facility] Active Problems Active Problems: All Active Problems (Updated 11/30/21 @ 20:33 by Blaise Julian MD) Lymphadenopathy, mediastinal (Acute) Pleural effusion (Acute) Respiratory failure (Acute) Obesity (Acute) Hypothyroidism (Acute) HTN (hypertension) (Acute) Diabetes mellitus with insulin therapy (Acute) Sepsis (Acute) LEO (acute kidney injury) (Acute) Acute exacerbation of congestive heart failure (Acute) Pneumonia (Acute) Essential hypertension (Acute) Acute respiratory failure with hypoxia (Acute) Past Medical History Medical History (Updated 11/30/21 @ 20:33 by Blaise Julian MD) CKD (chronic kidney disease) Congestive heart failure COVID Diabetes mellitus with insulin therapy HLD (hyperlipidemia) HTN (hypertension) Hypothyroidism Lower extremity edema Lymphadenopathy, mediastinal Migraine Obesity Pleural effusion Pseudotumor cerebri PVD (peripheral vascular disease) Family History Family History Mother Heart attack, Onset Age: 92 Father Heart attack, Onset Age: 66 Other Diabetes Family history of problems with anesthesia: No Surgical History Surgical History (Updated 11/25/21 @ 16:34 by Maribell Ruiz MD) H/O cataract extraction H/O hysterectomy for benign disease Hx of cholecystectomy S/P appendectomy History of Problems with Anesthesia: No Social History Social History Alcohol intake: never Patient Tobacco Use Status: Never used Tobacco Advance Directives Date on File: 09/26/20 service: No Current occupational status: disabled Meds Allergies Allergy/AdvReac Type Severity Reaction Status Date / Time oxycodone [From Percocet] Allergy Intermediate Rash Verified 11/19/21 17:16 Active Medications: Current Medications Acetaminophen (Acetaminophen Oral Liquid 650 Mg/20.3 Ml Solution) 650 mg PO Q6H PRN PRN Reason: Fever >101 Last Admin: 11/28/21 01:41 Dose: 650 mg Chlorhexidine Gluconate (Chlorhexidine Gluc Oral Rinse 15 Ml Mouthwash) 15 ml BUCCAL TID ALAN Last Admin: 12/02/21 20:35 Dose: 15 ml Dextrose (Dextrose 50 % 25 Gm/50 Ml Syringe) 25 gm IVPUSH Q15M PRN; Protocol PRN Reason: per Hypoglycemia Standing Ord. Last Admin: 12/01/21 19:53 Dose: 25 gm Heparin Sodium (Porcine) (Heparin Sodium,Porcine 5,000 Unit/Ml Vial) 5,000 unit SUBCUT Q8H [facility] Last Admin: 12/02/21 20:36 Dose: 5,000 unit Dexmedetomidine HCl (Precedex) 400 mcg in 100 mls @ 0 mls/hr IVCONT .Q0M [facility]; Protocol Last Titration: 12/03/21 05:37 Dose: 0.3 mcg/kg/hr, 10.35 mls/hr Piperacillin Sod/Tazobactam (Sod 4.5 gm/ Sodium Chloride) 100 mls @ 200 mls/hr IV Q8H [facility] Insulin Glargine (Insulin Glargine,Hum.Rec.Anlog 100 Unit/Ml 10 Ml Vial) 25 unit SUBCUT BID [facility] Last Admin: 12/02/21 20:35 Dose: Not Given Insulin Human Lispro (Insulin Lispro 100 Unit/Ml 3 Ml Vial) 0 unit SUBCUT Q6H [facility]; Protocol Last Admin: 12/03/21 04:34 Dose: Not Given Nystatin (Nystatin Powder 15 Gm Bottle) 1 appl TOPICAL BID [facility]; Protocol Last Admin: 12/02/21 20:36 Dose: 1 appl Omeprazole (Omeprazole 20 Mg/10 Ml Susp.Recon) 40 mg OG-TUBE DAILY@0630 [facility] Last Admin: 12/03/21 04:34 Dose: Not Given Spironolactone (Spironolactone 25 Mg Tablet) 25 mg PO DAILY [facility]; Protocol Last Admin: 12/02/21 08:59 Dose: 25 mg Home Medications Medication Instructions Recorded Confirmed Last Taken Type amitriptyline 50 mg tablet 25 mg PO DAILY 10/08/21 11/20/21 Unknown History aspirin 325 mg tablet 325 mg PO DAILY 10/08/21 11/20/21 Unknown History brinzolamide 1 %-brimonidine 0.2 % 1 drp ophthalmic-Right BID 10/08/21 11/20/21 Unknown History eye drops,suspension (Simbrinza) chlordiazepoxide HCl 10 mg capsule 10 mg PO BEDTIME 10/08/21 11/20/21 Unknown History citalopram 20 mg tablet 20 mg PO DAILY 10/08/21 11/20/21 Unknown History clonazepam 0.5 mg tablet 0.5 mg PO BID 10/08/21 11/20/21 Unknown History docusate sodium 100 mg tablet 100 mg PO DAILY 10/08/21 11/20/21 Unknown History furosemide 40 mg tablet 40 tab PO BID@0900,1800 10/08/21 11/20/21 Unknown History hydroxychloroquine 200 mg tablet 200 mg PO BID 10/08/21 11/20/21 Unknown History insulin glargine 100 unit/mL (3 80 unit subcut BEDTIME 10/08/21 11/20/21 Unknown History mL) subcutaneous pen (Lantus Solostar U-100 Insulin) insulin lispro protamine-lispro 7 - 15 ea subcut TIDAC 10/08/21 11/20/21 Unknown History 100 unit/mL (75-25) subcutaneous pen levothyroxine 175 mcg tablet 175 mcg PO DAILY@0600 10/08/21 11/20/21 Unknown History multivitamin 1 tab PO DAILY 10/08/21 11/20/21 Unknown History netarsudil 0.02 %-latanoprost 1 drp ophthalmic (eye) BEDTIME 10/08/21 11/20/21 Unknown History 0.005 % eye drops (Rocklatan) simvastatin 20 mg tablet 20 mg PO BEDTIME 10/08/21 11/20/21 Unknown History sitagliptin 100 mg tablet (Januvia) 100 mg PO DAILY 10/08/21 11/20/21 Unknown History latanoprost 0.005 % eye drops 1 drp ophthalmic (eye) BEDTIME 11/20/21 11/20/21 Unknown History Exam Exam Date and Time: December 03, 2021721 Height,Weight and Vital Signs: Height 5 ft 5 in Weight 142 kg Last Vital Signs Temp 100.6 F H 12/03/21 07:00 Pulse 49 L 12/03/21 07:00 Resp 15 12/03/21 07:00 BP 139/43 L 12/03/21 07:00 Pulse Ox 90 L 12/03/21 07:00 O2 Del Method 12/03/21 07:00 FiO2 25 12/03/21 07:00 Pertinent Lab Results Pertinent Lab Results: Laboratory Tests 11/19/21 11/19/21 11/19/21 18:37 18:37 18:37 WBC RBC Hgb Hct MCV MCH MCHC RDW Plt Count MPV Immature Gran % (Auto) Neut % (Auto) Lymph % (Auto) [place] % (Auto) Eos % (Auto) Baso % (Auto) Lymph # (Auto) [place] # (Auto) Eos # (Auto) Baso # (Auto) Abs Immat Gran (auto) Absolute Neuts (auto) Absolute Nucleated RBC Nucleated RBC % (auto) Smear Tech's Comments PT 12.4 INR 1.1 D-Dimer High Sensitivty 578 O2 Saturation ABG pH at Pt Temp ABG pCO2 at Pt Temp ABG pO2 at Pt Temp ABG HCO3 ABG Base Excess (Actual) VBG pH VBG pCO2 VBG pO2 VBG HCO3 VBG O2 Saturation VBG Base Excess Sodium Potassium Chloride Carbon Dioxide Anion Gap BUN Creatinine Estim Creat Clear Calc Estimated GFR POC Glucose Random Glucose Lactic Acid Uric Acid Calcium Phosphorus Magnesium Total Bilirubin Direct Bilirubin AST ALT Alkaline Phosphatase Lactate Dehydrogenase Troponin I High Sens 21.9 H D C-Reactive Protein B-Natriuretic Peptide Total Protein Albumin Procalcitonin TSH Urine Color Urine Appearance Urine pH Ur Specific Pearson Urine Protein Urine Glucose (UA) Urine Ketones Urine Blood Urine Nitrite Ur Leukocyte Esterase Urine RBC Urine WBC Urine WBC Clumps Ur Squamous Epith Cells Ur Transition Epith Cell Ur Renal Epithelial Cell Calcium Oxalate Crystal Leucine Crystals Cystine Crystals Tyrosine Crystals Other Crystals Urine Bacteria Urine Parasites Bilirubin Casts Epithelial Casts Fatty Casts Hyaline Casts Granular Casts Waxy Casts Broad Casts RBC Casts WBC Casts Other Casts Urine Trichomonas Urine Yeast Ur Random Sodium Urine Creatinine Pleural pH Pleural WBC Pleural RBC Pleural Neutrophils Pleural Lymphocytes Pleural Monocytes Pleural Eosinophils Pleural Other Cells Pleural Total Protein Pleural LDH Pleural Glucose Pleural Amylase Proteinase 3 (PR3) Ab Myeloperoxidase Ab Glomerular Base Memb Ab Complement C3 Complement C4 Leuk/Lym Interpretation COVID-19 (DENY) COVID-19 Clin Com 11/19/21 11/19/21 11/19/21 18:37 18:38 18:38 WBC 16.7 H RBC 4.02 L Hgb 10.1 L Hct 33.3 L MCV 82.8 MCH 25.1 L MCHC 30.3 L RDW 15.4 Plt Count 211 MPV 10.9 Immature Gran % (Auto) 0.7 H Neut % (Auto) 88.5 H Lymph % (Auto) 3.5 L [place] % (Auto) 6.0 Eos % (Auto) 0.6 Baso % (Auto) 0.7 Lymph # (Auto) 0.6 L [place] # (Auto) 1.0 Eos # (Auto) 0.1 Baso # (Auto) 0.1 Abs Immat Gran (auto) 0.11 H Absolute Neuts (auto) 14.8 H Absolute Nucleated RBC 0.000 Nucleated RBC % (auto) 0.0 Smear Tech's Comments PT INR D-Dimer High Sensitivty O2 Saturation ABG pH at Pt Temp ABG pCO2 at Pt Temp ABG pO2 at Pt Temp ABG HCO3 ABG Base Excess (Actual) VBG pH 7.50 H VBG pCO2 33 VBG pO2 116 VBG HCO3 26 VBG O2 Saturation 99.0 VBG Base Excess 3.8 Sodium Potassium Chloride Carbon Dioxide Anion Gap BUN Creatinine Estim Creat Clear Calc Estimated GFR POC Glucose Random Glucose Lactic Acid 1.8 Uric Acid Calcium Phosphorus Magnesium Total Bilirubin Direct Bilirubin AST ALT Alkaline Phosphatase Lactate Dehydrogenase Troponin I High Sens C-Reactive Protein B-Natriuretic Peptide Total Protein Albumin Procalcitonin TSH Urine Color Urine Appearance Urine pH Ur Specific Pearson Urine Protein Urine Glucose (UA) Urine Ketones Urine Blood Urine Nitrite Ur Leukocyte Esterase Urine RBC Urine WBC Urine WBC Clumps Ur Squamous Epith Cells Ur Transition Epith Cell Ur Renal Epithelial Cell Calcium Oxalate Crystal Leucine Crystals Cystine Crystals Tyrosine Crystals Other Crystals Urine Bacteria Urine Parasites Bilirubin Casts Epithelial Casts Fatty Casts Hyaline Casts Granular Casts Waxy Casts Broad Casts RBC Casts WBC Casts Other Casts Urine Trichomonas Urine Yeast Ur Random Sodium Urine Creatinine Pleural pH Pleural WBC Pleural RBC Pleural Neutrophils Pleural Lymphocytes Pleural Monocytes Pleural Eosinophils Pleural Other Cells Pleural Total Protein Pleural LDH Pleural Glucose Pleural Amylase Proteinase 3 (PR3) Ab Myeloperoxidase Ab Glomerular Base Memb Ab Complement C3 Complement C4 Leuk/Lym Interpretation COVID-19 (DENY) COVID-19 Clin Com 11/19/21 11/19/21 11/19/21 18:41 18:42 18:42 WBC RBC Hgb Hct MCV MCH MCHC RDW Plt Count MPV Immature Gran % (Auto) Neut % (Auto) Lymph % (Auto) [place] % (Auto) Eos % (Auto) Baso % (Auto) Lymph # (Auto) [place] # (Auto) Eos # (Auto) Baso # (Auto) Abs Immat Gran (auto) Absolute Neuts (auto) Absolute Nucleated RBC Nucleated RBC % (auto) Smear Tech's Comments PT INR D-Dimer High Sensitivty O2 Saturation ABG pH at Pt Temp ABG pCO2 at Pt Temp ABG pO2 at Pt Temp ABG HCO3 ABG Base Excess (Actual) VBG pH VBG pCO2 VBG pO2 VBG HCO3 VBG O2 Saturation VBG Base Excess Sodium Cancelled 141 Potassium Cancelled 4.8 Chloride Cancelled 103 Carbon Dioxide Cancelled 23 Anion Gap Cancelled 20 BUN Cancelled 20 H D Creatinine Cancelled 1.26 Estim Creat Clear Calc Cancelled 62.3 Estimated GFR Cancelled 42 POC Glucose Random Glucose Cancelled 199 H Lactic Acid Uric Acid Calcium Cancelled 8.5 Phosphorus Magnesium Cancelled 2.2 Total Bilirubin Cancelled 0.5 Direct Bilirubin Cancelled 0.3 AST Cancelled 16 ALT Cancelled 12 Alkaline Phosphatase Cancelled 80 D Lactate Dehydrogenase Troponin I High Sens C-Reactive Protein B-Natriuretic Peptide 304 H Total Protein Cancelled 6.2 L Albumin Cancelled 3.2 L Procalcitonin TSH 1.84 Urine Color Urine Appearance Urine pH Ur Specific Pearson Urine Protein Urine Glucose (UA) Urine Ketones Urine Blood Urine Nitrite Ur Leukocyte Esterase Urine RBC Urine WBC Urine WBC Clumps Ur Squamous Epith Cells Ur Transition Epith Cell Ur Renal Epithelial Cell Calcium Oxalate Crystal Leucine Crystals Cystine Crystals Tyrosine Crystals Other Crystals Urine Bacteria Urine Parasites Bilirubin Casts Epithelial Casts Fatty Casts Hyaline Casts Granular Casts Waxy Casts Broad Casts RBC Casts WBC Casts Other Casts Urine Trichomonas Urine Yeast Ur Random Sodium Urine Creatinine Pleural pH Pleural WBC Pleural RBC Pleural Neutrophils Pleural Lymphocytes Pleural Monocytes Pleural Eosinophils Pleural Other Cells Pleural Total Protein Pleural LDH Pleural Glucose Pleural Amylase Proteinase 3 (PR3) Ab Myeloperoxidase Ab Glomerular Base Memb Ab Complement C3 Complement C4 Leuk/Lym Interpretation COVID-19 (DENY) COVID-19 Clin Com 11/19/21 11/20/21 11/20/21 20:31 05:17 05:17 WBC 13.5 H RBC 3.63 L Hgb 9.0 L Hct 29.6 L MCV 81.5 MCH 24.8 L MCHC 30.4 L RDW 15.5 Plt Count 199 MPV 10.8 Immature Gran % (Auto) 0.6 H Neut % (Auto) 78.1 H Lymph % (Auto) 7.5 L [place] % (Auto) 10.4 Eos % (Auto) 2.8 Baso % (Auto) 0.6 Lymph # (Auto) 1.0 L [place] # (Auto) 1.4 H Eos # (Auto) 0.4 Baso # (Auto) 0.1 Abs Immat Gran (auto) 0.08 H Absolute Neuts (auto) 10.6 H Absolute Nucleated RBC 0.000 Nucleated RBC % (auto) 0.0 Smear Tech's Comments PT INR D-Dimer High Sensitivty O2 Saturation ABG pH at Pt Temp ABG pCO2 at Pt Temp ABG pO2 at Pt Temp ABG HCO3 ABG Base Excess (Actual) VBG pH VBG pCO2 VBG pO2 VBG HCO3 VBG O2 Saturation VBG Base Excess Sodium 142 Potassium 4.0 Chloride 103 Carbon Dioxide 27 Anion Gap 16 BUN 21 H Creatinine 1.32 Estim Creat Clear Calc 57.7 Estimated GFR 40 POC Glucose Random Glucose 113 Lactic Acid Uric Acid Calcium 8.4 Phosphorus 3.8 Magnesium 2.2 Total Bilirubin 0.7 Direct Bilirubin AST 11 ALT 9 Alkaline Phosphatase 68 Lactate Dehydrogenase Troponin I High Sens C-Reactive Protein B-Natriuretic Peptide Total Protein 5.6 L Albumin 3.0 L Procalcitonin TSH Urine Color Urine Appearance Urine pH Ur Specific Pearson Urine Protein Urine Glucose (UA) Urine Ketones Urine Blood Urine Nitrite Ur Leukocyte Esterase Urine RBC Urine WBC Urine WBC Clumps Ur Squamous Epith Cells Ur Transition Epith Cell Ur Renal Epithelial Cell Calcium Oxalate Crystal Leucine Crystals Cystine Crystals Tyrosine Crystals Other Crystals Urine Bacteria Urine Parasites Bilirubin Casts Epithelial Casts Fatty Casts Hyaline Casts Granular Casts Waxy Casts Broad Casts RBC Casts WBC Casts Other Casts Urine Trichomonas Urine Yeast Ur Random Sodium Urine Creatinine Pleural pH Pleural WBC Pleural RBC Pleural Neutrophils Pleural Lymphocytes Pleural Monocytes Pleural Eosinophils Pleural Other Cells Pleural Total Protein Pleural LDH Pleural Glucose Pleural Amylase Proteinase 3 (PR3) Ab Myeloperoxidase Ab Glomerular Base Memb Ab Complement C3 Complement C4 Leuk/Lym Interpretation COVID-19 (DENY) Negative COVID-19 Clin Com See Note 11/20/21 11/20/21 11/21/21 05:20 18:02 05:12 WBC RBC Hgb Hct MCV MCH MCHC RDW Plt Count MPV Immature Gran % (Auto) Neut % (Auto) Lymph % (Auto) [place] % (Auto) Eos % (Auto) Baso % (Auto) Lymph # (Auto) [place] # (Auto) Eos # (Auto) Baso # (Auto) Abs Immat Gran (auto) Absolute Neuts (auto) Absolute Nucleated RBC Nucleated RBC % (auto) Smear Tech's Comments PT INR D-Dimer High Sensitivty O2 Saturation ABG pH at Pt Temp ABG pCO2 at Pt Temp ABG pO2 at Pt Temp ABG HCO3 ABG Base Excess (Actual) VBG pH 7.48 H VBG pCO2 36 VBG pO2 34 VBG HCO3 27 H VBG O2 Saturation 55.0 VBG Base Excess 4.1 Sodium 142 Potassium 4.2 Chloride 104 Carbon Dioxide 24 Anion Gap 18 BUN 23 H Creatinine 1.44 H Estim Creat Clear Calc 52.9 Estimated GFR 36 POC Glucose Random Glucose 153 H Lactic Acid Uric Acid Calcium 8.3 L Phosphorus Magnesium Total Bilirubin Direct Bilirubin AST ALT Alkaline Phosphatase Lactate Dehydrogenase Troponin I High Sens 48.4 H D C-Reactive Protein B-Natriuretic Peptide Total Protein Albumin Procalcitonin TSH Urine Color Urine Appearance Urine pH Ur Specific Pearson Urine Protein Urine Glucose (UA) Urine Ketones Urine Blood Urine Nitrite Ur Leukocyte Esterase Urine RBC Urine WBC Urine WBC Clumps Ur Squamous Epith Cells Ur Transition Epith Cell Ur Renal Epithelial Cell Calcium Oxalate Crystal Leucine Crystals Cystine Crystals Tyrosine Crystals Other Crystals Urine Bacteria Urine Parasites Bilirubin Casts Epithelial Casts Fatty Casts Hyaline Casts Granular Casts Waxy Casts Broad Casts RBC Casts WBC Casts Other Casts Urine Trichomonas Urine Yeast Ur Random Sodium Urine Creatinine Pleural pH Pleural WBC Pleural RBC Pleural Neutrophils Pleural Lymphocytes Pleural Monocytes Pleural Eosinophils Pleural Other Cells Pleural Total Protein Pleural LDH Pleural Glucose Pleural Amylase Proteinase 3 (PR3) Ab Myeloperoxidase Ab Glomerular Base Memb Ab Complement C3 Complement C4 Leuk/Lym Interpretation COVID-19 (DENY) COVID-19 Clin Com 11/21/21 11/21/21 11/21/21 05:12 05:12 05:23 WBC 16.2 H RBC 3.36 L Hgb 8.5 L Hct 27.5 L MCV 81.8 MCH 25.3 L MCHC 30.9 L RDW 16.4 H Plt Count 203 MPV 11.3 Immature Gran % (Auto) 1.3 H Neut % (Auto) 80.2 H Lymph % (Auto) 5.7 L [place] % (Auto) 10.1 Eos % (Auto) 2.0 Baso % (Auto) 0.7 Lymph # (Auto) 0.9 L [place] # (Auto) 1.6 H Eos # (Auto) 0.3 Baso # (Auto) 0.1 Abs Immat Gran (auto) 0.21 H Absolute Neuts (auto) 13.0 H Absolute Nucleated RBC 0.000 Nucleated RBC % (auto) 0.0 Smear Tech's Comments VERIFIED PT INR D-Dimer High Sensitivty O2 Saturation 81.0 ABG pH at Pt Temp 7.40 ABG pCO2 at Pt Temp 39 ABG pO2 at Pt Temp 55 L ABG HCO3 24 ABG Base Excess (Actual) 0.3 VBG pH VBG pCO2 VBG pO2 VBG HCO3 VBG O2 Saturation VBG Base Excess Sodium 141 Potassium 3.7 Chloride 100 Carbon Dioxide 26 Anion Gap 19 BUN 26 H Creatinine 1.83 H Estim Creat Clear Calc 41.2 Estimated GFR 27 POC Glucose Random Glucose 290 H Lactic Acid Uric Acid Calcium 8.1 L Phosphorus 4.8 H Magnesium 2.1 Total Bilirubin Direct Bilirubin AST ALT Alkaline Phosphatase Lactate Dehydrogenase Troponin I High Sens C-Reactive Protein B-Natriuretic Peptide Total Protein Albumin 3.8 D Procalcitonin TSH Urine Color Urine Appearance Urine pH Ur Specific Pearson Urine Protein Urine Glucose (UA) Urine Ketones Urine Blood Urine Nitrite Ur Leukocyte Esterase Urine RBC Urine WBC Urine WBC Clumps Ur Squamous Epith Cells Ur Transition Epith Cell Ur Renal Epithelial Cell Calcium Oxalate Crystal Leucine Crystals Cystine Crystals Tyrosine Crystals Other Crystals Urine Bacteria Urine Parasites Bilirubin Casts Epithelial Casts Fatty Casts Hyaline Casts Granular Casts Waxy Casts Broad Casts RBC Casts WBC Casts Other Casts Urine Trichomonas Urine Yeast Ur Random Sodium Urine Creatinine Pleural pH Pleural WBC Pleural RBC Pleural Neutrophils Pleural Lymphocytes Pleural Monocytes Pleural Eosinophils Pleural Other Cells Pleural Total Protein Pleural LDH Pleural Glucose Pleural Amylase Proteinase 3 (PR3) Ab Myeloperoxidase Ab Glomerular Base Memb Ab Complement C3 Complement C4 Leuk/Lym Interpretation COVID-19 (DENY) COVID-19 Clin Com 11/21/21 11/21/21 11/21/21 11:02 17:45 23:10 WBC RBC Hgb Hct MCV MCH MCHC RDW Plt Count MPV Immature Gran % (Auto) Neut % (Auto) Lymph % (Auto) [place] % (Auto) Eos % (Auto) Baso % (Auto) Lymph # (Auto) [place] # (Auto) Eos # (Auto) Baso # (Auto) Abs Immat Gran (auto) Absolute Neuts (auto) Absolute Nucleated RBC Nucleated RBC % (auto) Smear Tech's Comments PT INR D-Dimer High Sensitivty O2 Saturation ABG pH at Pt Temp ABG pCO2 at Pt Temp ABG pO2 at Pt Temp ABG HCO3 ABG Base Excess (Actual) VBG pH VBG pCO2 VBG pO2 VBG HCO3 VBG O2 Saturation VBG Base Excess Sodium Potassium Chloride Carbon Dioxide Anion Gap BUN Creatinine Estim Creat Clear Calc Estimated GFR POC Glucose 255 H 154 H 98 Random Glucose Lactic Acid Uric Acid Calcium Phosphorus Magnesium Total Bilirubin Direct Bilirubin AST ALT Alkaline Phosphatase Lactate Dehydrogenase Troponin I High Sens C-Reactive Protein B-Natriuretic Peptide Total Protein Albumin Procalcitonin TSH Urine Color Urine Appearance Urine pH Ur Specific Pearson Urine Protein Urine Glucose (UA) Urine Ketones Urine Blood Urine Nitrite Ur Leukocyte Esterase Urine RBC Urine WBC Urine WBC Clumps Ur Squamous Epith Cells Ur Transition Epith Cell Ur Renal Epithelial Cell Calcium Oxalate Crystal Leucine Crystals Cystine Crystals Tyrosine Crystals Other Crystals Urine Bacteria Urine Parasites Bilirubin Casts Epithelial Casts Fatty Casts Hyaline Casts Granular Casts Waxy Casts Broad Casts RBC Casts WBC Casts Other Casts Urine Trichomonas Urine Yeast Ur Random Sodium Urine Creatinine Pleural pH Pleural WBC Pleural RBC Pleural Neutrophils Pleural Lymphocytes Pleural Monocytes Pleural Eosinophils Pleural Other Cells Pleural Total Protein Pleural LDH Pleural Glucose Pleural Amylase Proteinase 3 (PR3) Ab Myeloperoxidase Ab Glomerular Base Memb Ab Complement C3 Complement C4 Leuk/Lym Interpretation COVID-19 (DENY) COVID-19 Clin Com 11/22/21 11/22/21 11/22/21 05:03 05:03 05:08 WBC 14.3 H RBC 3.39 L Hgb 8.8 L Hct 28.7 L MCV 84.7 MCH 26.0 L MCHC 30.7 L RDW 17.2 H Plt Count 208 MPV 11.8 Immature Gran % (Auto) 1.5 H Neut % (Auto) 72.2 Lymph % (Auto) 8.0 L [place] % (Auto) 11.7 H Eos % (Auto) 6.1 H Baso % (Auto) 0.5 Lymph # (Auto) 1.1 L [place] # (Auto) 1.7 H Eos # (Auto) 0.9 H Baso # (Auto) 0.1 Abs Immat Gran (auto) 0.22 H Absolute Neuts (auto) 10.3 H Absolute Nucleated RBC 0.020 H Nucleated RBC % (auto) 0.1 Smear Tech's Comments VERIFIED PT INR D-Dimer High Sensitivty O2 Saturation ABG pH at Pt Temp ABG pCO2 at Pt Temp ABG pO2 at Pt Temp ABG HCO3 ABG Base Excess (Actual) VBG pH 7.38 VBG pCO2 38 VBG pO2 53 VBG HCO3 22 VBG O2 Saturation 82.0 VBG Base Excess -1.8 Sodium 142 Potassium 3.9 Chloride 102 Carbon Dioxide 25 Anion Gap 19 BUN 37 H Creatinine 2.70 H Estim Creat Clear Calc 27.9 Estimated GFR 17 POC Glucose Random Glucose 95 Lactic Acid Uric Acid Calcium 7.8 L Phosphorus 5.4 H Magnesium 2.2 Total Bilirubin Direct Bilirubin AST ALT Alkaline Phosphatase Lactate Dehydrogenase Troponin I High Sens C-Reactive Protein B-Natriuretic Peptide Total Protein Albumin 3.2 L Procalcitonin TSH Urine Color Urine Appearance Urine pH Ur Specific Pearson Urine Protein Urine Glucose (UA) Urine Ketones Urine Blood Urine Nitrite Ur Leukocyte Esterase Urine RBC Urine WBC Urine WBC Clumps Ur Squamous Epith Cells Ur Transition Epith Cell Ur Renal Epithelial Cell Calcium Oxalate Crystal Leucine Crystals Cystine Crystals Tyrosine Crystals Other Crystals Urine Bacteria Urine Parasites Bilirubin Casts Epithelial Casts Fatty Casts Hyaline Casts Granular Casts Waxy Casts Broad Casts RBC Casts WBC Casts Other Casts Urine Trichomonas Urine Yeast Ur Random Sodium Urine Creatinine Pleural pH Pleural WBC Pleural RBC Pleural Neutrophils Pleural Lymphocytes Pleural Monocytes Pleural Eosinophils Pleural Other Cells Pleural Total Protein Pleural LDH Pleural Glucose Pleural Amylase Proteinase 3 (PR3) Ab Myeloperoxidase Ab Glomerular Base Memb Ab Complement C3 Complement C4 Leuk/Lym Interpretation COVID-19 (DENY) COVID-19 Clin Com 11/22/21 11/22/21 11/22/21 05:14 07:59 12:00 WBC RBC Hgb Hct MCV MCH MCHC RDW Plt Count MPV Immature Gran % (Auto) Neut % (Auto) Lymph % (Auto) [place] % (Auto) Eos % (Auto) Baso % (Auto) Lymph # (Auto) [place] # (Auto) Eos # (Auto) Baso # (Auto) Abs Immat Gran (auto) Absolute Neuts (auto) Absolute Nucleated RBC Nucleated RBC % (auto) Smear Tech's Comments PT INR D-Dimer High Sensitivty O2 Saturation ABG pH at Pt Temp ABG pCO2 at Pt Temp ABG pO2 at Pt Temp ABG HCO3 ABG Base Excess (Actual) VBG pH VBG pCO2 VBG pO2 VBG HCO3 VBG O2 Saturation VBG Base Excess Sodium Potassium Chloride Carbon Dioxide Anion Gap BUN Creatinine Estim Creat Clear Calc Estimated GFR POC Glucose 96 117 H 129 H Random Glucose Lactic Acid Uric Acid Calcium Phosphorus Magnesium Total Bilirubin Direct Bilirubin AST ALT Alkaline Phosphatase Lactate Dehydrogenase Troponin I High Sens C-Reactive Protein B-Natriuretic Peptide Total Protein Albumin Procalcitonin TSH Urine Color Urine Appearance Urine pH Ur Specific Pearson Urine Protein Urine Glucose (UA) Urine Ketones Urine Blood Urine Nitrite Ur Leukocyte Esterase Urine RBC Urine WBC Urine WBC Clumps Ur Squamous Epith Cells Ur Transition Epith Cell Ur Renal Epithelial Cell Calcium Oxalate Crystal Leucine Crystals Cystine Crystals Tyrosine Crystals Other Crystals Urine Bacteria Urine Parasites Bilirubin Casts Epithelial Casts Fatty Casts Hyaline Casts Granular Casts Waxy Casts Broad Casts RBC Casts WBC Casts Other Casts Urine Trichomonas Urine Yeast Ur Random Sodium Urine Creatinine Pleural pH Pleural WBC Pleural RBC Pleural Neutrophils Pleural Lymphocytes Pleural Monocytes Pleural Eosinophils Pleural Other Cells Pleural Total Protein Pleural LDH Pleural Glucose Pleural Amylase Proteinase 3 (PR3) Ab Myeloperoxidase Ab Glomerular Base Memb Ab Complement C3 Complement C4 Leuk/Lym Interpretation COVID-19 (DENY) COVID-19 Clin Com 11/22/21 11/23/21 11/23/21 17:27 00:08 05:05 WBC 16.7 H RBC 3.57 L Hgb 9.0 L Hct 29.7 L MCV 83.2 MCH 25.2 L MCHC 30.3 L RDW 16.5 H Plt Count 230 MPV 11.5 Immature Gran % (Auto) 2.4 H Neut % (Auto) 76.4 H Lymph % (Auto) 5.3 L [place] % (Auto) 11.3 H Eos % (Auto) 4.2 H Baso % (Auto) 0.4 Lymph # (Auto) 0.9 L [place] # (Auto) 1.9 H Eos # (Auto) 0.7 H Baso # (Auto) 0.1 Abs Immat Gran (auto) 0.40 H Absolute Neuts (auto) 12.7 H Absolute Nucleated RBC 0.000 Nucleated RBC % (auto) 0.0 Smear Tech's Comments VERIFIED PT INR D-Dimer High Sensitivty O2 Saturation ABG pH at Pt Temp ABG pCO2 at Pt Temp ABG pO2 at Pt Temp ABG HCO3 ABG Base Excess (Actual) VBG pH VBG pCO2 VBG pO2 VBG HCO3 VBG O2 Saturation VBG Base Excess Sodium Potassium Chloride Carbon Dioxide Anion Gap BUN Creatinine Estim Creat Clear Calc Estimated GFR POC Glucose 159 H 135 H Random Glucose Lactic Acid Uric Acid Calcium Phosphorus Magnesium Total Bilirubin Direct Bilirubin AST ALT Alkaline Phosphatase Lactate Dehydrogenase Troponin I High Sens C-Reactive Protein B-Natriuretic Peptide Total Protein Albumin Procalcitonin TSH Urine Color Urine Appearance Urine pH Ur Specific Pearson Urine Protein Urine Glucose (UA) Urine Ketones Urine Blood Urine Nitrite Ur Leukocyte Esterase Urine RBC Urine WBC Urine WBC Clumps Ur Squamous Epith Cells Ur Transition Epith Cell Ur Renal Epithelial Cell Calcium Oxalate Crystal Leucine Crystals Cystine Crystals Tyrosine Crystals Other Crystals Urine Bacteria Urine Parasites Bilirubin Casts Epithelial Casts Fatty Casts Hyaline Casts Granular Casts Waxy Casts Broad Casts RBC Casts WBC Casts Other Casts Urine Trichomonas Urine Yeast Ur Random Sodium Urine Creatinine Pleural pH Pleural WBC Pleural RBC Pleural Neutrophils Pleural Lymphocytes Pleural Monocytes Pleural Eosinophils Pleural Other Cells Pleural Total Protein Pleural LDH Pleural Glucose Pleural Amylase Proteinase 3 (PR3) Ab Myeloperoxidase Ab Glomerular Base Memb Ab Complement C3 Complement C4 Leuk/Lym Interpretation COVID-19 (DENY) COVID-19 Clin Com 11/23/21 11/23/21 11/23/21 05:05 05:12 06:18 WBC RBC Hgb Hct MCV MCH MCHC RDW Plt Count MPV Immature Gran % (Auto) Neut % (Auto) Lymph % (Auto) [place] % (Auto) Eos % (Auto) Baso % (Auto) Lymph # (Auto) [place] # (Auto) Eos # (Auto) Baso # (Auto) Abs Immat Gran (auto) Absolute Neuts (auto) Absolute Nucleated RBC Nucleated RBC % (auto) Smear Tech's Comments PT INR D-Dimer High Sensitivty O2 Saturation ABG pH at Pt Temp ABG pCO2 at Pt Temp ABG pO2 at Pt Temp ABG HCO3 ABG Base Excess (Actual) VBG pH 7.37 VBG pCO2 33 VBG pO2 47 VBG HCO3 19 L VBG O2 Saturation 78.0 VBG Base Excess -4.6 Sodium 141 Potassium 4.4 Chloride 101 Carbon Dioxide 23 Anion Gap 21 H BUN 46 H Creatinine 3.35 H Estim Creat Clear Calc 22.5 Estimated GFR 14 POC Glucose 153 H Random Glucose 175 H Lactic Acid Uric Acid Calcium 7.8 L Phosphorus 7.0 H Magnesium 2.3 Total Bilirubin Direct Bilirubin AST ALT Alkaline Phosphatase Lactate Dehydrogenase Troponin I High Sens C-Reactive Protein B-Natriuretic Peptide Total Protein Albumin 3.2 L Procalcitonin TSH Urine Color Urine Appearance Urine pH Ur Specific Pearson Urine Protein Urine Glucose (UA) Urine Ketones Urine Blood Urine Nitrite Ur Leukocyte Esterase Urine RBC Urine WBC Urine WBC Clumps Ur Squamous Epith Cells Ur Transition Epith Cell Ur Renal Epithelial Cell Calcium Oxalate Crystal Leucine Crystals Cystine Crystals Tyrosine Crystals Other Crystals Urine Bacteria Urine Parasites Bilirubin Casts Epithelial Casts Fatty Casts Hyaline Casts Granular Casts Waxy Casts Broad Casts RBC Casts WBC Casts Other Casts Urine Trichomonas Urine Yeast Ur Random Sodium Urine Creatinine Pleural pH Pleural WBC Pleural RBC Pleural Neutrophils Pleural Lymphocytes Pleural Monocytes Pleural Eosinophils Pleural Other Cells Pleural Total Protein Pleural LDH Pleural Glucose Pleural Amylase Proteinase 3 (PR3) Ab Myeloperoxidase Ab Glomerular Base Memb Ab Complement C3 Complement C4 Leuk/Lym Interpretation COVID-19 (DENY) COVID-19 Clin Com 11/23/21 11/23/21 11/23/21 10:25 11:31 14:23 WBC RBC Hgb Hct MCV MCH MCHC RDW Plt Count MPV Immature Gran % (Auto) Neut % (Auto) Lymph % (Auto) [place] % (Auto) Eos % (Auto) Baso % (Auto) Lymph # (Auto) [place] # (Auto) Eos # (Auto) Baso # (Auto) Abs Immat Gran (auto) Absolute Neuts (auto) Absolute Nucleated RBC Nucleated RBC % (auto) Smear Tech's Comments PT INR D-Dimer High Sensitivty O2 Saturation ABG pH at Pt Temp ABG pCO2 at Pt Temp ABG pO2 at Pt Temp ABG HCO3 ABG Base Excess (Actual) VBG pH VBG pCO2 VBG pO2 VBG HCO3 VBG O2 Saturation VBG Base Excess Sodium Potassium Chloride Carbon Dioxide Anion Gap BUN Creatinine Estim Creat Clear Calc Estimated GFR POC Glucose 172 H Random Glucose Lactic Acid Uric Acid Calcium Phosphorus Magnesium Total Bilirubin Direct Bilirubin AST ALT Alkaline Phosphatase Lactate Dehydrogenase Troponin I High Sens C-Reactive Protein B-Natriuretic Peptide Total Protein Albumin Procalcitonin TSH Urine Color Urine Appearance Urine pH Ur Specific Pearson Urine Protein Urine Glucose (UA) Urine Ketones Urine Blood Urine Nitrite Ur Leukocyte Esterase Urine RBC Urine WBC Urine WBC Clumps Ur Squamous Epith Cells Ur Transition Epith Cell Ur Renal Epithelial Cell Calcium Oxalate Crystal Leucine Crystals Cystine Crystals Tyrosine Crystals Other Crystals Urine Bacteria Urine Parasites Bilirubin Casts Epithelial Casts Fatty Casts Hyaline Casts Granular Casts Waxy Casts Broad Casts RBC Casts WBC Casts Other Casts Urine Trichomonas Urine Yeast Ur Random Sodium < 20.0 Urine Creatinine Pleural pH Pleural WBC Pleural RBC Pleural Neutrophils Pleural Lymphocytes Pleural Monocytes Pleural Eosinophils Pleural Other Cells Pleural Total Protein Pleural LDH Pleural Glucose Pleural Amylase Proteinase 3 (PR3) Ab <1.0 Myeloperoxidase Ab <1.0 Glomerular Base Memb Ab <1.0 Complement C3 89 Complement C4 30 Leuk/Lym Interpretation COVID-19 (DENY) COVID-19 Clin Com 11/23/21 11/23/21 11/23/21 15:41 15:41 18:18 WBC RBC Hgb Hct MCV MCH MCHC RDW Plt Count MPV Immature Gran % (Auto) Neut % (Auto) Lymph % (Auto) [place] % (Auto) Eos % (Auto) Baso % (Auto) Lymph # (Auto) [place] # (Auto) Eos # (Auto) Baso # (Auto) Abs Immat Gran (auto) Absolute Neuts (auto) Absolute Nucleated RBC Nucleated RBC % (auto) Smear Tech's Comments PT INR D-Dimer High Sensitivty O2 Saturation ABG pH at Pt Temp ABG pCO2 at Pt Temp ABG pO2 at Pt Temp ABG HCO3 ABG Base Excess (Actual) VBG pH VBG pCO2 VBG pO2 VBG HCO3 VBG O2 Saturation VBG Base Excess Sodium Potassium Chloride Carbon Dioxide Anion Gap BUN Creatinine Estim Creat Clear Calc Estimated GFR POC Glucose 166 H Random Glucose Lactic Acid Uric Acid Calcium Phosphorus Magnesium Total Bilirubin Direct Bilirubin AST ALT Alkaline Phosphatase Lactate Dehydrogenase Troponin I High Sens C-Reactive Protein B-Natriuretic Peptide Total Protein Albumin Procalcitonin TSH Urine Color Yellow Urine Appearance Clear Urine pH 5.0 Ur Specific Pearson 1.025 Urine Protein 30 (1+) H Urine Glucose (UA) Negative Urine Ketones Negative Urine Blood Negative Urine Nitrite Negative Ur Leukocyte Esterase Negative Urine RBC 0-2 Urine WBC 0-5 Urine WBC Clumps Ur Squamous Epith Cells 3-5 Ur Transition Epith Cell Ur Renal Epithelial Cell Calcium Oxalate Crystal Leucine Crystals Cystine Crystals Tyrosine Crystals Other Crystals Urine Bacteria None Seen Urine Parasites Bilirubin Casts Epithelial Casts Fatty Casts Hyaline Casts 6-10 Granular Casts Waxy Casts Broad Casts RBC Casts WBC Casts Other Casts Urine Trichomonas Urine Yeast Ur Random Sodium < 20.0 Urine Creatinine 86.51 Pleural pH Pleural WBC Pleural RBC Pleural Neutrophils Pleural Lymphocytes Pleural Monocytes Pleural Eosinophils Pleural Other Cells Pleural Total Protein Pleural LDH Pleural Glucose Pleural Amylase Proteinase 3 (PR3) Ab Myeloperoxidase Ab Glomerular Base Memb Ab Complement C3 Complement C4 Leuk/Lym Interpretation COVID-19 (DENY) COVID-19 Clin Com 11/24/21 11/24/21 11/24/21 00:08 04:40 05:14 WBC 30.1 H* RBC 3.67 L Hgb 9.1 L Hct 30.5 L MCV 83.1 MCH 24.8 L MCHC 29.8 L RDW 16.7 H Plt Count 230 MPV 11.4 Immature Gran % (Auto) Neut % (Auto) Lymph % (Auto) [place] % (Auto) Eos % (Auto) Baso % (Auto) Lymph # (Auto) [place] # (Auto) Eos # (Auto) Baso # (Auto) Abs Immat Gran (auto) Absolute Neuts (auto) Absolute Nucleated RBC 0.000 Nucleated RBC % (auto) 0.0 Smear Tech's Comments PT INR D-Dimer High Sensitivty O2 Saturation ABG pH at Pt Temp ABG pCO2 at Pt Temp ABG pO2 at Pt Temp ABG HCO3 ABG Base Excess (Actual) VBG pH VBG pCO2 VBG pO2 VBG HCO3 VBG O2 Saturation VBG Base Excess Sodium Potassium Chloride Carbon Dioxide Anion Gap BUN Creatinine Estim Creat Clear Calc Estimated GFR POC Glucose 128 H Random Glucose Lactic Acid Uric Acid Calcium Phosphorus Magnesium Total Bilirubin Direct Bilirubin AST ALT Alkaline Phosphatase Lactate Dehydrogenase Troponin I High Sens C-Reactive Protein B-Natriuretic Peptide Total Protein Albumin Procalcitonin TSH Urine Color Urine Appearance Urine pH Ur Specific Pearson Urine Protein Urine Glucose (UA) Urine Ketones Urine Blood Urine Nitrite Ur Leukocyte Esterase Urine RBC Urine WBC Urine WBC Clumps Ur Squamous Epith Cells Ur Transition Epith Cell Ur Renal Epithelial Cell Calcium Oxalate Crystal Leucine Crystals Cystine Crystals Tyrosine Crystals Other Crystals Urine Bacteria Urine Parasites Bilirubin Casts Epithelial Casts Fatty Casts Hyaline Casts Granular Casts Waxy Casts Broad Casts RBC Casts WBC Casts Other Casts Urine Trichomonas Urine Yeast Ur Random Sodium < 20.0 Urine Creatinine Pleural pH Pleural WBC Pleural RBC Pleural Neutrophils Pleural Lymphocytes Pleural Monocytes Pleural Eosinophils Pleural Other Cells Pleural Total Protein Pleural LDH Pleural Glucose Pleural Amylase Proteinase 3 (PR3) Ab Myeloperoxidase Ab Glomerular Base Memb Ab Complement C3 Complement C4 Leuk/Lym Interpretation COVID-19 (DENY) COVID-19 Clin Com 11/24/21 11/24/21 11/24/21 05:14 05:14 05:14 WBC RBC Hgb Hct MCV MCH MCHC RDW Plt Count MPV Immature Gran % (Auto) Neut % (Auto) Lymph % (Auto) [place] % (Auto) Eos % (Auto) Baso % (Auto) Lymph # (Auto) [place] # (Auto) Eos # (Auto) Baso # (Auto) Abs Immat Gran (auto) Absolute Neuts (auto) Absolute Nucleated RBC Nucleated RBC % (auto) Smear Tech's Comments PT INR D-Dimer High Sensitivty O2 Saturation ABG pH at Pt Temp ABG pCO2 at Pt Temp ABG pO2 at Pt Temp ABG HCO3 ABG Base Excess (Actual) VBG pH VBG pCO2 VBG pO2 VBG HCO3 VBG O2 Saturation VBG Base Excess Sodium 140 Potassium 4.2 Chloride 102 Carbon Dioxide 21 L Anion Gap 21 H BUN 50 H Creatinine 3.10 H Estim Creat Clear Calc 24.8 Estimated GFR 15 POC Glucose Random Glucose 224 H Lactic Acid Uric Acid Calcium 7.8 L Phosphorus 8.3 H Magnesium Total Bilirubin Direct Bilirubin AST ALT Alkaline Phosphatase Lactate Dehydrogenase Troponin I High Sens C-Reactive Protein 11.10 H B-Natriuretic Peptide 644 H Total Protein Albumin Procalcitonin TSH Urine Color Urine Appearance Urine pH Ur Specific Pearson Urine Protein Urine Glucose (UA) Urine Ketones Urine Blood Urine Nitrite Ur Leukocyte Esterase Urine RBC Urine WBC Urine WBC Clumps Ur Squamous Epith Cells Ur Transition Epith Cell Ur Renal Epithelial Cell Calcium Oxalate Crystal Leucine Crystals Cystine Crystals Tyrosine Crystals Other Crystals Urine Bacteria Urine Parasites Bilirubin Casts Epithelial Casts Fatty Casts Hyaline Casts Granular Casts Waxy Casts Broad Casts RBC Casts WBC Casts Other Casts Urine Trichomonas Urine Yeast Ur Random Sodium Urine Creatinine Pleural pH Pleural WBC Pleural RBC Pleural Neutrophils Pleural Lymphocytes Pleural Monocytes Pleural Eosinophils Pleural Other Cells Pleural Total Protein Pleural LDH Pleural Glucose Pleural Amylase Proteinase 3 (PR3) Ab Myeloperoxidase Ab Glomerular Base Memb Ab Complement C3 Complement C4 Leuk/Lym Interpretation COVID-19 (DENY) COVID-19 Clin Com 11/24/21 11/24/21 11/24/21 05:19 05:50 11:43 WBC RBC Hgb Hct MCV MCH MCHC RDW Plt Count MPV Immature Gran % (Auto) Neut % (Auto) Lymph % (Auto) [place] % (Auto) Eos % (Auto) Baso % (Auto) Lymph # (Auto) [place] # (Auto) Eos # (Auto) Baso # (Auto) Abs Immat Gran (auto) Absolute Neuts (auto) Absolute Nucleated RBC Nucleated RBC % (auto) Smear Tech's Comments PT INR D-Dimer High Sensitivty O2 Saturation ABG pH at Pt Temp ABG pCO2 at Pt Temp ABG pO2 at Pt Temp ABG HCO3 ABG Base Excess (Actual) VBG pH 7.28 L VBG pCO2 37 VBG pO2 59 VBG HCO3 18 L VBG O2 Saturation 86.0 VBG Base Excess -7.8 Sodium Potassium Chloride Carbon Dioxide Anion Gap BUN Creatinine Estim Creat Clear Calc Estimated GFR POC Glucose 215 H 204 H Random Glucose Lactic Acid Uric Acid Calcium Phosphorus Magnesium Total Bilirubin Direct Bilirubin AST ALT Alkaline Phosphatase Lactate Dehydrogenase Troponin I High Sens C-Reactive Protein B-Natriuretic Peptide Total Protein Albumin Procalcitonin TSH Urine Color Urine Appearance Urine pH Ur Specific Pearson Urine Protein Urine Glucose (UA) Urine Ketones Urine Blood Urine Nitrite Ur Leukocyte Esterase Urine RBC Urine WBC Urine WBC Clumps Ur Squamous Epith Cells Ur Transition Epith Cell Ur Renal Epithelial Cell Calcium Oxalate Crystal Leucine Crystals Cystine Crystals Tyrosine Crystals Other Crystals Urine Bacteria Urine Parasites Bilirubin Casts Epithelial Casts Fatty Casts Hyaline Casts Granular Casts Waxy Casts Broad Casts RBC Casts WBC Casts Other Casts Urine Trichomonas Urine Yeast Ur Random Sodium Urine Creatinine Pleural pH Pleural WBC Pleural RBC Pleural Neutrophils Pleural Lymphocytes Pleural Monocytes Pleural Eosinophils Pleural Other Cells Pleural Total Protein Pleural LDH Pleural Glucose Pleural Amylase Proteinase 3 (PR3) Ab Myeloperoxidase Ab Glomerular Base Memb Ab Complement C3 Complement C4 Leuk/Lym Interpretation COVID-19 (DENY) COVID-19 Clin Com 11/24/21 11/24/21 11/25/21 17:22 23:51 05:24 WBC 20.5 H RBC 3.74 L Hgb 9.2 L Hct 30.3 L MCV 81.0 MCH 24.6 L MCHC 30.4 L RDW 16.9 H Plt Count 278 MPV 12.0 Immature Gran % (Auto) 1.5 H Neut % (Auto) 93.2 H Lymph % (Auto) 3.0 L [place] % (Auto) 0.8 L Eos % (Auto) 1.2 Baso % (Auto) 0.3 Lymph # (Auto) 0.6 L [place] # (Auto) 0.2 Eos # (Auto) 0.3 Baso # (Auto) 0.1 Abs Immat Gran (auto) 0.30 H Absolute Neuts (auto) 19.1 H Absolute Nucleated RBC 0.000 Nucleated RBC % (auto) 0.0 Smear Tech's Comments VERIFIED PT INR D-Dimer High Sensitivty O2 Saturation ABG pH at Pt Temp ABG pCO2 at Pt Temp ABG pO2 at Pt Temp ABG HCO3 ABG Base Excess (Actual) VBG pH VBG pCO2 VBG pO2 VBG HCO3 VBG O2 Saturation VBG Base Excess Sodium Potassium Chloride Carbon Dioxide Anion Gap BUN Creatinine Estim Creat Clear Calc Estimated GFR POC Glucose 112 157 H Random Glucose Lactic Acid Uric Acid Calcium Phosphorus Magnesium Total Bilirubin Direct Bilirubin AST ALT Alkaline Phosphatase Lactate Dehydrogenase Troponin I High Sens C-Reactive Protein B-Natriuretic Peptide Total Protein Albumin Procalcitonin TSH Urine Color Urine Appearance Urine pH Ur Specific Pearson Urine Protein Urine Glucose (UA) Urine Ketones Urine Blood Urine Nitrite Ur Leukocyte Esterase Urine RBC Urine WBC Urine WBC Clumps Ur Squamous Epith Cells Ur Transition Epith Cell Ur Renal Epithelial Cell Calcium Oxalate Crystal Leucine Crystals Cystine Crystals Tyrosine Crystals Other Crystals Urine Bacteria Urine Parasites Bilirubin Casts Epithelial Casts Fatty Casts Hyaline Casts Granular Casts Waxy Casts Broad Casts RBC Casts WBC Casts Other Casts Urine Trichomonas Urine Yeast Ur Random Sodium Urine Creatinine Pleural pH Pleural WBC Pleural RBC Pleural Neutrophils Pleural Lymphocytes Pleural Monocytes Pleural Eosinophils Pleural Other Cells Pleural Total Protein Pleural LDH Pleural Glucose Pleural Amylase Proteinase 3 (PR3) Ab Myeloperoxidase Ab Glomerular Base Memb Ab Complement C3 Complement C4 Leuk/Lym Interpretation COVID-19 (DENY) COVID-19 Clin Com 11/25/21 11/25/21 11/25/21 05:24 05:24 05:26 WBC RBC Hgb Hct MCV MCH MCHC RDW Plt Count MPV Immature Gran % (Auto) Neut % (Auto) Lymph % (Auto) [place] % (Auto) Eos % (Auto) Baso % (Auto) Lymph # (Auto) [place] # (Auto) Eos # (Auto) Baso # (Auto) Abs Immat Gran (auto) Absolute Neuts (auto) Absolute Nucleated RBC Nucleated RBC % (auto) Smear Tech's Comments PT INR D-Dimer High Sensitivty O2 Saturation ABG pH at Pt Temp ABG pCO2 at Pt Temp ABG pO2 at Pt Temp ABG HCO3 ABG Base Excess (Actual) VBG pH 7.36 VBG pCO2 35 VBG pO2 51 VBG HCO3 20 L VBG O2 Saturation 79.0 VBG Base Excess -4.5 Sodium 143 Potassium 4.1 Chloride 102 Carbon Dioxide 23 Anion Gap 22 H BUN 52 H Creatinine 2.67 H Estim Creat Clear Calc 28.7 Estimated GFR 18 POC Glucose Random Glucose 221 H Lactic Acid Uric Acid 7.9 H Calcium 8.0 L Phosphorus Magnesium Total Bilirubin 0.4 Direct Bilirubin AST 9 ALT 9 Alkaline Phosphatase 78 Lactate Dehydrogenase 266 H Troponin I High Sens C-Reactive Protein 10.88 H B-Natriuretic Peptide Total Protein 6.2 L Albumin 3.1 L Procalcitonin 0.38 TSH Urine Color Urine Appearance Urine pH Ur Specific Pearson Urine Protein Urine Glucose (UA) Urine Ketones Urine Blood Urine Nitrite Ur Leukocyte Esterase Urine RBC Urine WBC Urine WBC Clumps Ur Squamous Epith Cells Ur Transition Epith Cell Ur Renal Epithelial Cell Calcium Oxalate Crystal Leucine Crystals Cystine Crystals Tyrosine Crystals Other Crystals Urine Bacteria Urine Parasites Bilirubin Casts Epithelial Casts Fatty Casts Hyaline Casts Granular Casts Waxy Casts Broad Casts RBC Casts WBC Casts Other Casts Urine Trichomonas Urine Yeast Ur Random Sodium Urine Creatinine Pleural pH Pleural WBC Pleural RBC Pleural Neutrophils Pleural Lymphocytes Pleural Monocytes Pleural Eosinophils Pleural Other Cells Pleural Total Protein Pleural LDH Pleural Glucose Pleural Amylase Proteinase 3 (PR3) Ab Myeloperoxidase Ab Glomerular Base Memb Ab Complement C3 Complement C4 Leuk/Lym Interpretation COVID-19 (DENY) COVID-19 Clin Com 11/25/21 11/25/21 11/25/21 05:55 09:30 09:30 WBC RBC Hgb Hct MCV MCH MCHC RDW Plt Count MPV Immature Gran % (Auto) Neut % (Auto) Lymph % (Auto) [place] % (Auto) Eos % (Auto) Baso % (Auto) Lymph # (Auto) [place] # (Auto) Eos # (Auto) Baso # (Auto) Abs Immat Gran (auto) Absolute Neuts (auto) Absolute Nucleated RBC Nucleated RBC % (auto) Smear Tech's Comments PT INR D-Dimer High Sensitivty O2 Saturation ABG pH at Pt Temp ABG pCO2 at Pt Temp ABG pO2 at Pt Temp ABG HCO3 ABG Base Excess (Actual) VBG pH VBG pCO2 VBG pO2 VBG HCO3 VBG O2 Saturation VBG Base Excess Sodium Potassium Chloride Carbon Dioxide Anion Gap BUN Creatinine Estim Creat Clear Calc Estimated GFR POC Glucose 204 H Random Glucose Lactic Acid Uric Acid Calcium Phosphorus Magnesium Total Bilirubin Direct Bilirubin AST ALT Alkaline Phosphatase Lactate Dehydrogenase Troponin I High Sens C-Reactive Protein B-Natriuretic Peptide Total Protein Albumin Procalcitonin TSH Urine Color Urine Appearance Urine pH Ur Specific Pearson Urine Protein Urine Glucose (UA) Urine Ketones Urine Blood Urine Nitrite Ur Leukocyte Esterase Urine RBC Urine WBC Urine WBC Clumps Ur Squamous Epith Cells Ur Transition Epith Cell Ur Renal Epithelial Cell Calcium Oxalate Crystal Leucine Crystals Cystine Crystals Tyrosine Crystals Other Crystals Urine Bacteria Urine Parasites Bilirubin Casts Epithelial Casts Fatty Casts Hyaline Casts Granular Casts Waxy Casts Broad Casts RBC Casts WBC Casts Other Casts Urine Trichomonas Urine Yeast Ur Random Sodium Urine Creatinine Pleural pH Pleural WBC 0.845 Pleural RBC 0.002 Pleural Neutrophils 8 Pleural Lymphocytes 49 Pleural Monocytes 4 Pleural Eosinophils Pleural Other Cells 39 Pleural Total Protein 2.0 Pleural LDH Pleural Glucose Pleural Amylase Proteinase 3 (PR3) Ab Myeloperoxidase Ab Glomerular Base Memb Ab Complement C3 Complement C4 Leuk/Lym Interpretation COVID-19 (DENY) COVID-19 Clin Com 11/25/21 11/25/21 11/25/21 09:30 09:30 10:34 WBC RBC Hgb Hct MCV MCH MCHC RDW Plt Count MPV Immature Gran % (Auto) Neut % (Auto) Lymph % (Auto) [place] % (Auto) Eos % (Auto) Baso % (Auto) Lymph # (Auto) [place] # (Auto) Eos # (Auto) Baso # (Auto) Abs Immat Gran (auto) Absolute Neuts (auto) Absolute Nucleated RBC Nucleated RBC % (auto) Smear Tech's Comments PT INR D-Dimer High Sensitivty O2 Saturation ABG pH at Pt Temp ABG pCO2 at Pt Temp ABG pO2 at Pt Temp ABG HCO3 ABG Base Excess (Actual) VBG pH VBG pCO2 VBG pO2 VBG HCO3 VBG O2 Saturation VBG Base Excess Sodium Potassium Chloride Carbon Dioxide Anion Gap BUN Creatinine Estim Creat Clear Calc Estimated GFR POC Glucose Random Glucose Lactic Acid Uric Acid Calcium Phosphorus Magnesium Total Bilirubin Direct Bilirubin AST ALT Alkaline Phosphatase Lactate Dehydrogenase Troponin I High Sens C-Reactive Protein B-Natriuretic Peptide Total Protein Albumin Procalcitonin TSH Urine Color Urine Appearance Urine pH Ur Specific Pearson Urine Protein Urine Glucose (UA) Urine Ketones Urine Blood Urine Nitrite Ur Leukocyte Esterase Urine RBC Urine WBC Urine WBC Clumps Ur Squamous Epith Cells Ur Transition Epith Cell Ur Renal Epithelial Cell Calcium Oxalate Crystal Leucine Crystals Cystine Crystals Tyrosine Crystals Other Crystals Urine Bacteria Urine Parasites Bilirubin Casts Epithelial Casts Fatty Casts Hyaline Casts Granular Casts Waxy Casts Broad Casts RBC Casts WBC Casts Other Casts Urine Trichomonas Urine Yeast Ur Random Sodium Urine Creatinine Pleural pH Pleural WBC Pleural RBC Pleural Neutrophils Pleural Lymphocytes Pleural Monocytes Pleural Eosinophils Pleural Other Cells Pleural Total Protein Pleural LDH 117 Pleural Glucose 226 Pleural Amylase 56 Proteinase 3 (PR3) Ab Myeloperoxidase Ab Glomerular Base Memb Ab Complement C3 Complement C4 Leuk/Lym Interpretation See Note COVID-19 (DENY) COVID-19 Clin Com 11/25/21 11/25/21 11/25/21 10:34 11:41 14:40 WBC RBC Hgb Hct MCV MCH MCHC RDW Plt Count MPV Immature Gran % (Auto) Neut % (Auto) Lymph % (Auto) [place] % (Auto) Eos % (Auto) Baso % (Auto) Lymph # (Auto) [place] # (Auto) Eos # (Auto) Baso # (Auto) Abs Immat Gran (auto) Absolute Neuts (auto) Absolute Nucleated RBC Nucleated RBC % (auto) Smear Tech's Comments PT INR D-Dimer High Sensitivty O2 Saturation ABG pH at Pt Temp ABG pCO2 at Pt Temp ABG pO2 at Pt Temp ABG HCO3 ABG Base Excess (Actual) VBG pH VBG pCO2 VBG pO2 VBG HCO3 VBG O2 Saturation VBG Base Excess Sodium Potassium Chloride Carbon Dioxide Anion Gap BUN Creatinine Estim Creat Clear Calc Estimated GFR POC Glucose 208 H Random Glucose Lactic Acid Uric Acid Calcium Phosphorus Magnesium Total Bilirubin Direct Bilirubin AST ALT Alkaline Phosphatase Lactate Dehydrogenase Troponin I High Sens C-Reactive Protein B-Natriuretic Peptide Total Protein Albumin Procalcitonin TSH Urine Color Yellow Urine Appearance Clear Urine pH 5.5 Ur Specific Pearson 1.020 Urine Protein 30 (1+) H Urine Glucose (UA) Negative Urine Ketones Negative Urine Blood Negative Urine Nitrite Negative Ur Leukocyte Esterase Negative Urine RBC 3-5 H Urine WBC 0-5 Urine WBC Clumps Ur Squamous Epith Cells 0-2 Ur Transition Epith Cell Ur Renal Epithelial Cell Calcium Oxalate Crystal Leucine Crystals Cystine Crystals Tyrosine Crystals Other Crystals Urine Bacteria None Seen Urine Parasites Bilirubin Casts Epithelial Casts Fatty Casts Hyaline Casts 0-2 Granular Casts Waxy Casts Broad Casts RBC Casts WBC Casts Other Casts Urine Trichomonas Urine Yeast Ur Random Sodium Urine Creatinine Pleural pH Pleural WBC Pleural RBC Pleural Neutrophils Pleural Lymphocytes Pleural Monocytes Pleural Eosinophils Pleural Other Cells Pleural Total Protein Pleural LDH Pleural Glucose Pleural Amylase Proteinase 3 (PR3) Ab Myeloperoxidase Ab Glomerular Base Memb Ab Complement C3 Complement C4 Leuk/Lym Interpretation See Note COVID-19 (DENY) COVID-19 Clin Com 11/25/21 11/25/21 11/25/21 14:57 18:26 Unknown WBC RBC Hgb Hct MCV MCH MCHC RDW Plt Count MPV Immature Gran % (Auto) Neut % (Auto) Lymph % (Auto) [place] % (Auto) Eos % (Auto) Baso % (Auto) Lymph # (Auto) [place] # (Auto) Eos # (Auto) Baso # (Auto) Abs Immat Gran (auto) Absolute Neuts (auto) Absolute Nucleated RBC Nucleated RBC % (auto) Smear Tech's Comments PT INR D-Dimer High Sensitivty O2 Saturation ABG pH at Pt Temp ABG pCO2 at Pt Temp ABG pO2 at Pt Temp ABG HCO3 ABG Base Excess (Actual) VBG pH VBG pCO2 VBG pO2 VBG HCO3 VBG O2 Saturation VBG Base Excess Sodium Potassium Chloride Carbon Dioxide Anion Gap BUN Creatinine Estim Creat Clear Calc Estimated GFR POC Glucose 248 H Random Glucose Lactic Acid 0.8 Uric Acid Calcium Phosphorus Magnesium Total Bilirubin Direct Bilirubin AST ALT Alkaline Phosphatase Lactate Dehydrogenase Troponin I High Sens C-Reactive Protein B-Natriuretic Peptide Total Protein Albumin Procalcitonin TSH Urine Color Urine Appearance Urine pH Ur Specific Pearson Urine Protein Urine Glucose (UA) Urine Ketones Urine Blood Urine Nitrite Ur Leukocyte Esterase Urine RBC Urine WBC Urine WBC Clumps Ur Squamous Epith Cells Ur Transition Epith Cell Ur Renal Epithelial Cell Calcium Oxalate Crystal Leucine Crystals Cystine Crystals Tyrosine Crystals Other Crystals Urine Bacteria Urine Parasites Bilirubin Casts Epithelial Casts Fatty Casts Hyaline Casts Granular Casts Waxy Casts Broad Casts RBC Casts WBC Casts Other Casts Urine Trichomonas Urine Yeast Ur Random Sodium Urine Creatinine Pleural pH TNP Pleural WBC Pleural RBC Pleural Neutrophils Pleural Lymphocytes Pleural Monocytes Pleural Eosinophils Pleural Other Cells Pleural Total Protein Pleural LDH Pleural Glucose Pleural Amylase Proteinase 3 (PR3) Ab Myeloperoxidase Ab Glomerular Base Memb Ab Complement C3 Complement C4 Leuk/Lym Interpretation COVID-19 (DENY) COVID-19 Clin Com 11/26/21 11/26/21 11/26/21 00:05 05:10 05:10 WBC 20.8 H RBC 3.50 L Hgb 8.9 L Hct 28.4 L MCV 81.1 MCH 25.4 L MCHC 31.3 RDW 17.2 H Plt Count 283 MPV 11.8 Immature Gran % (Auto) Neut % (Auto) Lymph % (Auto) [place] % (Auto) Eos % (Auto) Baso % (Auto) Lymph # (Auto) [place] # (Auto) Eos # (Auto) Baso # (Auto) Abs Immat Gran (auto) Absolute Neuts (auto) Absolute Nucleated RBC 0.000 Nucleated RBC % (auto) 0.0 Smear Tech's Comments PT INR D-Dimer High Sensitivty O2 Saturation ABG pH at Pt Temp ABG pCO2 at Pt Temp ABG pO2 at Pt Temp ABG HCO3 ABG Base Excess (Actual) VBG pH VBG pCO2 VBG pO2 VBG HCO3 VBG O2 Saturation VBG Base Excess Sodium 145 Potassium 3.2 L D Chloride 104 Carbon Dioxide 26 Anion Gap 18 BUN 69 H Creatinine 2.61 H Estim Creat Clear Calc 29.4 Estimated GFR 18 POC Glucose 251 H Random Glucose 273 H Lactic Acid Uric Acid Calcium 8.0 L Phosphorus 4.4 Magnesium 2.9 H Total Bilirubin Direct Bilirubin AST ALT Alkaline Phosphatase Lactate Dehydrogenase Troponin I High Sens C-Reactive Protein B-Natriuretic Peptide Total Protein Albumin Procalcitonin TSH Urine Color Urine Appearance Urine pH Ur Specific Pearson Urine Protein Urine Glucose (UA) Urine Ketones Urine Blood Urine Nitrite Ur Leukocyte Esterase Urine RBC Urine WBC Urine WBC Clumps Ur Squamous Epith Cells Ur Transition Epith Cell Ur Renal Epithelial Cell Calcium Oxalate Crystal Leucine Crystals Cystine Crystals Tyrosine Crystals Other Crystals Urine Bacteria Urine Parasites Bilirubin Casts Epithelial Casts Fatty Casts Hyaline Casts Granular Casts Waxy Casts Broad Casts RBC Casts WBC Casts Other Casts Urine Trichomonas Urine Yeast Ur Random Sodium Urine Creatinine Pleural pH Pleural WBC Pleural RBC Pleural Neutrophils Pleural Lymphocytes Pleural Monocytes Pleural Eosinophils Pleural Other Cells Pleural Total Protein Pleural LDH Pleural Glucose Pleural Amylase Proteinase 3 (PR3) Ab Myeloperoxidase Ab Glomerular Base Memb Ab Complement C3 Complement C4 Leuk/Lym Interpretation COVID-19 (DENY) COVID-19 Clin Com 11/26/21 11/26/21 11/26/21 05:12 05:49 12:21 WBC RBC Hgb Hct MCV MCH MCHC RDW Plt Count MPV Immature Gran % (Auto) Neut % (Auto) Lymph % (Auto) [place] % (Auto) Eos % (Auto) Baso % (Auto) Lymph # (Auto) [place] # (Auto) Eos # (Auto) Baso # (Auto) Abs Immat Gran (auto) Absolute Neuts (auto) Absolute Nucleated RBC Nucleated RBC % (auto) Smear Tech's Comments PT INR D-Dimer High Sensitivty O2 Saturation ABG pH at Pt Temp ABG pCO2 at Pt Temp ABG pO2 at Pt Temp ABG HCO3 ABG Base Excess (Actual) VBG pH 7.40 VBG pCO2 35 VBG pO2 46 VBG HCO3 22 VBG O2 Saturation 73.0 VBG Base Excess -1.8 Sodium Potassium Chloride Carbon Dioxide Anion Gap BUN Creatinine Estim Creat Clear Calc Estimated GFR POC Glucose 254 H 254 H Random Glucose Lactic Acid Uric Acid Calcium Phosphorus Magnesium Total Bilirubin Direct Bilirubin AST ALT Alkaline Phosphatase Lactate Dehydrogenase Troponin I High Sens C-Reactive Protein B-Natriuretic Peptide Total Protein Albumin Procalcitonin TSH Urine Color Urine Appearance Urine pH Ur Specific Pearson Urine Protein Urine Glucose (UA) Urine Ketones Urine Blood Urine Nitrite Ur Leukocyte Esterase Urine RBC Urine WBC Urine WBC Clumps Ur Squamous Epith Cells Ur Transition Epith Cell Ur Renal Epithelial Cell Calcium Oxalate Crystal Leucine Crystals Cystine Crystals Tyrosine Crystals Other Crystals Urine Bacteria Urine Parasites Bilirubin Casts Epithelial Casts Fatty Casts Hyaline Casts Granular Casts Waxy Casts Broad Casts RBC Casts WBC Casts Other Casts Urine Trichomonas Urine Yeast Ur Random Sodium Urine Creatinine Pleural pH Pleural WBC Pleural RBC Pleural Neutrophils Pleural Lymphocytes Pleural Monocytes Pleural Eosinophils Pleural Other Cells Pleural Total Protein Pleural LDH Pleural Glucose Pleural Amylase Proteinase 3 (PR3) Ab Myeloperoxidase Ab Glomerular Base Memb Ab Complement C3 Complement C4 Leuk/Lym Interpretation COVID-19 (DENY) COVID-19 Clin [facility] 11/26/21 11/26/21 11/26/21 13:04 18:19 21:12 WBC RBC Hgb Hct MCV MCH MCHC RDW Plt Count MPV Immature Gran % (Auto) Neut % (Auto) Lymph % (Auto) [place] % (Auto) Eos % (Auto) Baso % (Auto) Lymph # (Auto) [place] # (Auto) Eos # (Auto) Baso # (Auto) Abs Immat Gran (auto) Absolute Neuts (auto) Absolute Nucleated RBC Nucleated RBC % (auto) Smear Tech's Comments PT INR D-Dimer High Sensitivty O2 Saturation ABG pH at Pt Temp ABG pCO2 at Pt Temp ABG pO2 at Pt Temp ABG HCO3 ABG Base Excess (Actual) VBG pH VBG pCO2 VBG pO2 VBG HCO3 VBG O2 Saturation VBG Base Excess Sodium Potassium Chloride Carbon Dioxide Anion Gap BUN Creatinine Estim Creat Clear Calc Estimated GFR POC Glucose 290 H 303 H 287 H Random Glucose Lactic Acid Uric Acid Calcium Phosphorus Magnesium Total Bilirubin Direct Bilirubin AST ALT Alkaline Phosphatase Lactate Dehydrogenase Troponin I High Sens C-Reactive Protein B-Natriuretic Peptide Total Protein Albumin Procalcitonin TSH Urine Color Urine Appearance Urine pH Ur Specific Pearson Urine Protein Urine Glucose (UA) Urine Ketones Urine Blood Urine Nitrite Ur Leukocyte Esterase Urine RBC Urine WBC Urine WBC Clumps Ur Squamous Epith Cells Ur Transition Epith Cell Ur Renal Epithelial Cell Calcium Oxalate Crystal Leucine Crystals Cystine Crystals Tyrosine Crystals Other Crystals Urine Bacteria Urine Parasites Bilirubin Casts Epithelial Casts Fatty Casts Hyaline Casts Granular Casts Waxy Casts Broad Casts RBC Casts WBC Casts Other Casts Urine Trichomonas Urine Yeast Ur Random Sodium Urine Creatinine Pleural pH Pleural WBC Pleural RBC Pleural Neutrophils Pleural Lymphocytes Pleural Monocytes Pleural Eosinophils Pleural Other Cells Pleural Total Protein Pleural LDH Pleural Glucose Pleural Amylase Proteinase 3 (PR3) Ab Myeloperoxidase Ab Glomerular Base Memb Ab Complement C3 Complement C4 Leuk/Lym Interpretation COVID-19 (DENY) COVID-19 Clin Com 11/27/21 11/27/21 11/27/21 00:00 05:15 05:15 WBC 20.1 H RBC 3.36 L Hgb 8.8 L Hct 28.2 L MCV 83.9 MCH 26.2 L MCHC 31.2 RDW 17.8 H Plt Count 245 MPV 11.6 Immature Gran % (Auto) Neut % (Auto) Lymph % (Auto) [place] % (Auto) Eos % (Auto) Baso % (Auto) Lymph # (Auto) [place] # (Auto) Eos # (Auto) Baso # (Auto) Abs Immat Gran (auto) Absolute Neuts (auto) Absolute Nucleated RBC 0.000 Nucleated RBC % (auto) 0.0 Smear Tech's Comments PT INR D-Dimer High Sensitivty O2 Saturation ABG pH at Pt Temp ABG pCO2 at Pt Temp ABG pO2 at Pt Temp ABG HCO3 ABG Base Excess (Actual) VBG pH VBG pCO2 VBG pO2 VBG HCO3 VBG O2 Saturation VBG Base Excess Sodium 147 H Potassium 3.1 L Chloride 107 Carbon Dioxide 28 Anion Gap 15 BUN 68 H Creatinine 2.11 H Estim Creat Clear Calc 35.9 Estimated GFR 23 POC Glucose 284 H Random Glucose 316 H Lactic Acid Uric Acid Calcium 8.0 L Phosphorus 3.0 Magnesium Total Bilirubin Direct Bilirubin AST ALT Alkaline Phosphatase Lactate Dehydrogenase Troponin I High Sens C-Reactive Protein B-Natriuretic Peptide Total Protein Albumin 3.0 L Procalcitonin TSH Urine Color Urine Appearance Urine pH Ur Specific Pearson Urine Protein Urine Glucose (UA) Urine Ketones Urine Blood Urine Nitrite Ur Leukocyte Esterase Urine RBC Urine WBC Urine WBC Clumps Ur Squamous Epith Cells Ur Transition Epith Cell Ur Renal Epithelial Cell Calcium Oxalate Crystal Leucine Crystals Cystine Crystals Tyrosine Crystals Other Crystals Urine Bacteria Urine Parasites Bilirubin Casts Epithelial Casts Fatty Casts Hyaline Casts Granular Casts Waxy Casts Broad Casts RBC Casts WBC Casts Other Casts Urine Trichomonas Urine Yeast Ur Random Sodium Urine Creatinine Pleural pH Pleural WBC Pleural RBC Pleural Neutrophils Pleural Lymphocytes Pleural Monocytes Pleural Eosinophils Pleural Other Cells Pleural Total Protein Pleural LDH Pleural Glucose Pleural Amylase Proteinase 3 (PR3) Ab Myeloperoxidase Ab Glomerular Base Memb Ab Complement C3 Complement C4 Leuk/Lym Interpretation COVID-19 (DENY) COVID-19 Clin Com 11/27/21 11/27/21 11/27/21 05:15 05:27 05:30 WBC RBC Hgb Hct MCV MCH MCHC RDW Plt Count MPV Immature Gran % (Auto) Neut % (Auto) Lymph % (Auto) [place] % (Auto) Eos % (Auto) Baso % (Auto) Lymph # (Auto) [place] # (Auto) Eos # (Auto) Baso # (Auto) Abs Immat Gran (auto) Absolute Neuts (auto) Absolute Nucleated RBC Nucleated RBC % (auto) Smear Tech's Comments PT INR D-Dimer High Sensitivty O2 Saturation ABG pH at Pt Temp ABG pCO2 at Pt Temp ABG pO2 at Pt Temp ABG HCO3 ABG Base Excess (Actual) VBG pH 7.42 VBG pCO2 41 VBG pO2 40 VBG HCO3 27 H VBG O2 Saturation 64.0 VBG Base Excess 2.6 Sodium Potassium Chloride Carbon Dioxide Anion Gap BUN Creatinine Estim Creat Clear Calc Estimated GFR POC Glucose 283 H Random Glucose Lactic Acid Uric Acid Calcium Phosphorus Magnesium Total Bilirubin Direct Bilirubin AST ALT Alkaline Phosphatase Lactate Dehydrogenase Troponin I High Sens C-Reactive Protein B-Natriuretic Peptide 1410 H Total Protein Albumin Procalcitonin TSH Urine Color Urine Appearance Urine pH Ur Specific Pearson Urine Protein Urine Glucose (UA) Urine Ketones Urine Blood Urine Nitrite Ur Leukocyte Esterase Urine RBC Urine WBC Urine WBC Clumps Ur Squamous Epith Cells Ur Transition Epith Cell Ur Renal Epithelial Cell Calcium Oxalate Crystal Leucine Crystals Cystine Crystals Tyrosine Crystals Other Crystals Urine Bacteria Urine Parasites Bilirubin Casts Epithelial Casts Fatty Casts Hyaline Casts Granular Casts Waxy Casts Broad Casts RBC Casts WBC Casts Other Casts Urine Trichomonas Urine Yeast Ur Random Sodium Urine Creatinine Pleural pH Pleural WBC Pleural RBC Pleural Neutrophils Pleural Lymphocytes Pleural Monocytes Pleural Eosinophils Pleural Other Cells Pleural Total Protein Pleural LDH Pleural Glucose Pleural Amylase Proteinase 3 (PR3) Ab Myeloperoxidase Ab Glomerular Base Memb Ab Complement C3 Complement C4 Leuk/Lym Interpretation COVID-19 (DENY) COVID-19 Clin Com 11/27/21 11/27/21 11/27/21 11:54 13:49 13:49 WBC RBC Hgb Hct MCV MCH MCHC RDW Plt Count MPV Immature Gran % (Auto) Neut % (Auto) Lymph % (Auto) [place] % (Auto) Eos % (Auto) Baso % (Auto) Lymph # (Auto) [place] # (Auto) Eos # (Auto) Baso # (Auto) Abs Immat Gran (auto) Absolute Neuts (auto) Absolute Nucleated RBC Nucleated RBC % (auto) Smear Tech's Comments PT INR D-Dimer High Sensitivty O2 Saturation ABG pH at Pt Temp ABG pCO2 at Pt Temp ABG pO2 at Pt Temp ABG HCO3 ABG Base Excess (Actual) VBG pH VBG pCO2 VBG pO2 VBG HCO3 VBG O2 Saturation VBG Base Excess Sodium Potassium Chloride Carbon Dioxide Anion Gap BUN Creatinine Estim Creat Clear Calc Estimated GFR POC Glucose 301 H Random Glucose Lactic Acid Uric Acid Calcium Phosphorus Magnesium Total Bilirubin Direct Bilirubin AST ALT Alkaline Phosphatase Lactate Dehydrogenase Troponin I High Sens C-Reactive Protein B-Natriuretic Peptide Total Protein Albumin Procalcitonin TSH Urine Color Urine Appearance Urine pH Ur Specific Pearson Urine Protein Urine Glucose (UA) Urine Ketones Urine Blood Urine Nitrite Ur Leukocyte Esterase Urine RBC Urine WBC Urine WBC Clumps Ur Squamous Epith Cells Ur Transition Epith Cell Ur Renal Epithelial Cell Calcium Oxalate Crystal Leucine Crystals Cystine Crystals Tyrosine Crystals Other Crystals Urine Bacteria Urine Parasites Bilirubin Casts Epithelial Casts Fatty Casts Hyaline Casts Granular Casts Waxy Casts Broad Casts RBC Casts WBC Casts Other Casts Urine Trichomonas Urine Yeast Ur Random Sodium Urine Creatinine Pleural pH Pleural WBC 0.918 Pleural RBC 0.008 Pleural Neutrophils 7 Pleural Lymphocytes 71 Pleural Monocytes 1 Pleural Eosinophils 2 Pleural Other Cells 19 Pleural Total Protein 1.5 Pleural LDH Pleural Glucose 316 Pleural Amylase Proteinase 3 (PR3) Ab Myeloperoxidase Ab Glomerular Base Memb Ab Complement C3 Complement C4 Leuk/Lym Interpretation COVID-19 (DENY) COVID-19 Clin Com 11/27/21 11/27/21 11/27/21 18:03 23:36 23:51 WBC RBC Hgb Hct MCV MCH MCHC RDW Plt Count MPV Immature Gran % (Auto) Neut % (Auto) Lymph % (Auto) [place] % (Auto) Eos % (Auto) Baso % (Auto) Lymph # (Auto) [place] # (Auto) Eos # (Auto) Baso # (Auto) Abs Immat Gran (auto) Absolute Neuts (auto) Absolute Nucleated RBC Nucleated RBC % (auto) Smear Tech's Comments PT INR D-Dimer High Sensitivty O2 Saturation ABG pH at Pt Temp ABG pCO2 at Pt Temp ABG pO2 at Pt Temp ABG HCO3 ABG Base Excess (Actual) VBG pH VBG pCO2 VBG pO2 VBG HCO3 VBG O2 Saturation VBG Base Excess Sodium Potassium Chloride Carbon Dioxide Anion Gap BUN Creatinine Estim Creat Clear Calc Estimated GFR POC Glucose 279 H 282 H 282 H Random Glucose Lactic Acid Uric Acid Calcium Phosphorus Magnesium Total Bilirubin Direct Bilirubin AST ALT Alkaline Phosphatase Lactate Dehydrogenase Troponin I High Sens C-Reactive Protein B-Natriuretic Peptide Total Protein Albumin Procalcitonin TSH Urine Color Urine Appearance Urine pH Ur Specific Pearson Urine Protein Urine Glucose (UA) Urine Ketones Urine Blood Urine Nitrite Ur Leukocyte Esterase Urine RBC Urine WBC Urine WBC Clumps Ur Squamous Epith Cells Ur Transition Epith Cell Ur Renal Epithelial Cell Calcium Oxalate Crystal Leucine Crystals Cystine Crystals Tyrosine Crystals Other Crystals Urine Bacteria Urine Parasites Bilirubin Casts Epithelial Casts Fatty Casts Hyaline Casts Granular Casts Waxy Casts Broad Casts RBC Casts WBC Casts Other Casts Urine Trichomonas Urine Yeast Ur Random Sodium Urine Creatinine Pleural pH Pleural WBC Pleural RBC Pleural Neutrophils Pleural Lymphocytes Pleural Monocytes Pleural Eosinophils Pleural Other Cells Pleural Total Protein Pleural LDH Pleural Glucose Pleural Amylase Proteinase 3 (PR3) Ab Myeloperoxidase Ab Glomerular Base Memb Ab Complement C3 Complement C4 Leuk/Lym Interpretation COVID-19 (DENY) COVID-19 Clin Com 11/28/21 11/28/21 11/28/21 05:00 05:00 05:14 WBC 19.4 H RBC 3.63 L Hgb 9.2 L Hct 30.1 L MCV 82.9 MCH 25.3 L MCHC 30.6 L RDW 17.3 H Plt Count 289 MPV 12.2 Immature Gran % (Auto) Neut % (Auto) Lymph % (Auto) [place] % (Auto) Eos % (Auto) Baso % (Auto) Lymph # (Auto) [place] # (Auto) Eos # (Auto) Baso # (Auto) Abs Immat Gran (auto) Absolute Neuts (auto) Absolute Nucleated RBC 0.030 H Nucleated RBC % (auto) 0.2 Smear Tech's Comments PT INR D-Dimer High Sensitivty O2 Saturation ABG pH at Pt Temp ABG pCO2 at Pt Temp ABG pO2 at Pt Temp ABG HCO3 ABG Base Excess (Actual) VBG pH 7.53 H VBG pCO2 40 VBG pO2 44 VBG HCO3 33 H VBG O2 Saturation 74.0 VBG Base Excess 10.2 Sodium 152 H Potassium 3.3 Chloride 108 Carbon Dioxide 31 H Anion Gap 16 BUN 63 H Creatinine 1.80 H Estim Creat Clear Calc 43.4 Estimated GFR 28 POC Glucose Random Glucose 302 H Lactic Acid Uric Acid Calcium 8.0 L Phosphorus 1.9 L Magnesium 2.4 Total Bilirubin Direct Bilirubin AST ALT Alkaline Phosphatase Lactate Dehydrogenase Troponin I High Sens C-Reactive Protein B-Natriuretic Peptide Total Protein Albumin 2.9 L Procalcitonin TSH Urine Color Urine Appearance Urine pH Ur Specific Pearson Urine Protein Urine Glucose (UA) Urine Ketones Urine Blood Urine Nitrite Ur Leukocyte Esterase Urine RBC Urine WBC Urine WBC Clumps Ur Squamous Epith Cells Ur Transition Epith Cell Ur Renal Epithelial Cell Calcium Oxalate Crystal Leucine Crystals Cystine Crystals Tyrosine Crystals Other Crystals Urine Bacteria Urine Parasites Bilirubin Casts Epithelial Casts Fatty Casts Hyaline Casts Granular Casts Waxy Casts Broad Casts RBC Casts WBC Casts Other Casts Urine Trichomonas Urine Yeast Ur Random Sodium Urine Creatinine Pleural pH Pleural WBC Pleural RBC Pleural Neutrophils Pleural Lymphocytes Pleural Monocytes Pleural Eosinophils Pleural Other Cells Pleural Total Protein Pleural LDH Pleural Glucose Pleural Amylase Proteinase 3 (PR3) Ab Myeloperoxidase Ab Glomerular Base Memb Ab Complement C3 Complement C4 Leuk/Lym Interpretation COVID-19 (DENY) COVID-19 Clin Com 11/28/21 11/28/21 11/28/21 05:57 11:48 17:56 WBC RBC Hgb Hct MCV MCH MCHC RDW Plt Count MPV Immature Gran % (Auto) Neut % (Auto) Lymph % (Auto) [place] % (Auto) Eos % (Auto) Baso % (Auto) Lymph # (Auto) [place] # (Auto) Eos # (Auto) Baso # (Auto) Abs Immat Gran (auto) Absolute Neuts (auto) Absolute Nucleated RBC Nucleated RBC % (auto) Smear Tech's Comments PT INR D-Dimer High Sensitivty O2 Saturation ABG pH at Pt Temp ABG pCO2 at Pt Temp ABG pO2 at Pt Temp ABG HCO3 ABG Base Excess (Actual) VBG pH VBG pCO2 VBG pO2 VBG HCO3 VBG O2 Saturation VBG Base Excess Sodium Potassium Chloride Carbon Dioxide Anion Gap BUN Creatinine Estim Creat Clear Calc Estimated GFR POC Glucose 258 H 351 H* 294 H Random Glucose Lactic Acid Uric Acid Calcium Phosphorus Magnesium Total Bilirubin Direct Bilirubin AST ALT Alkaline Phosphatase Lactate Dehydrogenase Troponin I High Sens C-Reactive Protein B-Natriuretic Peptide Total Protein Albumin Procalcitonin TSH Urine Color Urine Appearance Urine pH Ur Specific Pearson Urine Protein Urine Glucose (UA) Urine Ketones Urine Blood Urine Nitrite Ur Leukocyte Esterase Urine RBC Urine WBC Urine WBC Clumps Ur Squamous Epith Cells Ur Transition Epith Cell Ur Renal Epithelial Cell Calcium Oxalate Crystal Leucine Crystals Cystine Crystals Tyrosine Crystals Other Crystals Urine Bacteria Urine Parasites Bilirubin Casts Epithelial Casts Fatty Casts Hyaline Casts Granular Casts Waxy Casts Broad Casts RBC Casts WBC Casts Other Casts Urine Trichomonas Urine Yeast Ur Random Sodium Urine Creatinine Pleural pH Pleural WBC Pleural RBC Pleural Neutrophils Pleural Lymphocytes Pleural Monocytes Pleural Eosinophils Pleural Other Cells Pleural Total Protein Pleural LDH Pleural Glucose Pleural Amylase Proteinase 3 (PR3) Ab Myeloperoxidase Ab Glomerular Base Memb Ab Complement C3 Complement C4 Leuk/Lym Interpretation COVID-19 (DENY) COVID-19 Clin Com 11/28/21 11/29/21 11/29/21 23:33 05:10 05:10 WBC 23.7 H RBC 4.00 L Hgb 10.0 L Hct 33.2 L MCV 83.0 MCH 25.0 L MCHC 30.1 L RDW 17.8 H Plt Count 330 MPV 12.3 Immature Gran % (Auto) Neut % (Auto) Lymph % (Auto) [place] % (Auto) Eos % (Auto) Baso % (Auto) Lymph # (Auto) [place] # (Auto) Eos # (Auto) Baso # (Auto) Abs Immat Gran (auto) Absolute Neuts (auto) Absolute Nucleated RBC 0.030 H Nucleated RBC % (auto) 0.1 Smear Tech's Comments PT INR D-Dimer High Sensitivty O2 Saturation ABG pH at Pt Temp ABG pCO2 at Pt Temp ABG pO2 at Pt Temp ABG HCO3 ABG Base Excess (Actual) VBG pH VBG pCO2 VBG pO2 VBG HCO3 VBG O2 Saturation VBG Base Excess Sodium 150 H Potassium 3.1 L Chloride 106 Carbon Dioxide 32 H Anion Gap 15 BUN 55 H Creatinine 1.50 H Estim Creat Clear Calc 50.2 Estimated GFR 34 POC Glucose 300 H Random Glucose 243 H Lactic Acid Uric Acid Calcium 7.5 L D Phosphorus 1.4 L Magnesium 1.8 Total Bilirubin Direct Bilirubin AST ALT Alkaline Phosphatase Lactate Dehydrogenase Troponin I High Sens C-Reactive Protein B-Natriuretic Peptide Total Protein Albumin Procalcitonin TSH Urine Color Urine Appearance Urine pH Ur Specific Pearson Urine Protein Urine Glucose (UA) Urine Ketones Urine Blood Urine Nitrite Ur Leukocyte Esterase Urine RBC Urine WBC Urine WBC Clumps Ur Squamous Epith Cells Ur Transition Epith Cell Ur Renal Epithelial Cell Calcium Oxalate Crystal Leucine Crystals Cystine Crystals Tyrosine Crystals Other Crystals Urine Bacteria Urine Parasites Bilirubin Casts Epithelial Casts Fatty Casts Hyaline Casts Granular Casts Waxy Casts Broad Casts RBC Casts WBC Casts Other Casts Urine Trichomonas Urine Yeast Ur Random Sodium Urine Creatinine Pleural pH Pleural WBC Pleural RBC Pleural Neutrophils Pleural Lymphocytes Pleural Monocytes Pleural Eosinophils Pleural Other Cells Pleural Total Protein Pleural LDH Pleural Glucose Pleural Amylase Proteinase 3 (PR3) Ab Myeloperoxidase Ab Glomerular Base Memb Ab Complement C3 Complement C4 Leuk/Lym Interpretation COVID-19 (DENY) COVID-19 Clin Com 11/29/21 11/29/21 11/29/21 05:33 06:30 11:24 WBC RBC Hgb Hct MCV MCH MCHC RDW Plt Count MPV Immature Gran % (Auto) Neut % (Auto) Lymph % (Auto) [place] % (Auto) Eos % (Auto) Baso % (Auto) Lymph # (Auto) [place] # (Auto) Eos # (Auto) Baso # (Auto) Abs Immat Gran (auto) Absolute Neuts (auto) Absolute Nucleated RBC Nucleated RBC % (auto) Smear Tech's Comments PT INR D-Dimer High Sensitivty O2 Saturation ABG pH at Pt Temp ABG pCO2 at Pt Temp ABG pO2 at Pt Temp ABG HCO3 ABG Base Excess (Actual) VBG pH 7.48 H VBG pCO2 46 VBG pO2 41 VBG HCO3 35 H VBG O2 Saturation 73.0 VBG Base Excess 10.6 Sodium Potassium Chloride Carbon Dioxide Anion Gap BUN Creatinine Estim Creat Clear Calc Estimated GFR POC Glucose 224 H 199 H Random Glucose Lactic Acid Uric Acid Calcium Phosphorus Magnesium Total Bilirubin Direct Bilirubin AST ALT Alkaline Phosphatase Lactate Dehydrogenase Troponin I High Sens C-Reactive Protein B-Natriuretic Peptide Total Protein Albumin Procalcitonin TSH Urine Color Urine Appearance Urine pH Ur Specific Pearson Urine Protein Urine Glucose (UA) Urine Ketones Urine Blood Urine Nitrite Ur Leukocyte Esterase Urine RBC Urine WBC Urine WBC Clumps Ur Squamous Epith Cells Ur Transition Epith Cell Ur Renal Epithelial Cell Calcium Oxalate Crystal Leucine Crystals Cystine Crystals Tyrosine Crystals Other Crystals Urine Bacteria Urine Parasites Bilirubin Casts Epithelial Casts Fatty Casts Hyaline Casts Granular Casts Waxy Casts Broad Casts RBC Casts WBC Casts Other Casts Urine Trichomonas Urine Yeast Ur Random Sodium Urine Creatinine Pleural pH Pleural WBC Pleural RBC Pleural Neutrophils Pleural Lymphocytes Pleural Monocytes Pleural Eosinophils Pleural Other Cells Pleural Total Protein Pleural LDH Pleural Glucose Pleural Amylase Proteinase 3 (PR3) Ab Myeloperoxidase Ab Glomerular Base Memb Ab Complement C3 Complement C4 Leuk/Lym Interpretation COVID-19 (DENY) COVID-19 Clin Com 11/29/21 11/29/21 11/30/21 17:09 18:13 00:37 WBC RBC Hgb Hct MCV MCH MCHC RDW Plt Count MPV Immature Gran % (Auto) Neut % (Auto) Lymph % (Auto) [place] % (Auto) Eos % (Auto) Baso % (Auto) Lymph # (Auto) [place] # (Auto) Eos # (Auto) Baso # (Auto) Abs Immat Gran (auto) Absolute Neuts (auto) Absolute Nucleated RBC Nucleated RBC % (auto) Smear Tech's Comments PT INR D-Dimer High Sensitivty O2 Saturation ABG pH at Pt Temp ABG pCO2 at Pt Temp ABG pO2 at Pt Temp ABG HCO3 ABG Base Excess (Actual) VBG pH VBG pCO2 VBG pO2 VBG HCO3 VBG O2 Saturation VBG Base Excess Sodium 150 H Potassium 3.7 Chloride 108 Carbon Dioxide 31 H Anion Gap 15 BUN 51 H Creatinine 1.57 H Estim Creat Clear Calc 47.1 Estimated GFR 33 POC Glucose 155 H 124 H Random Glucose 178 H Lactic Acid Uric Acid Calcium 7.4 L Phosphorus 2.8 Magnesium Total Bilirubin Direct Bilirubin AST ALT Alkaline Phosphatase Lactate Dehydrogenase Troponin I High Sens C-Reactive Protein B-Natriuretic Peptide Total Protein Albumin Procalcitonin TSH Urine Color Urine Appearance Urine pH Ur Specific Pearson Urine Protein Urine Glucose (UA) Urine Ketones Urine Blood Urine Nitrite Ur Leukocyte Esterase Urine RBC Urine WBC Urine WBC Clumps Ur Squamous Epith Cells Ur Transition Epith Cell Ur Renal Epithelial Cell Calcium Oxalate Crystal Leucine Crystals Cystine Crystals Tyrosine Crystals Other Crystals Urine Bacteria Urine Parasites Bilirubin Casts Epithelial Casts Fatty Casts Hyaline Casts Granular Casts Waxy Casts Broad Casts RBC Casts WBC Casts Other Casts Urine Trichomonas Urine Yeast Ur Random Sodium Urine Creatinine Pleural pH Pleural WBC Pleural RBC Pleural Neutrophils Pleural Lymphocytes Pleural Monocytes Pleural Eosinophils Pleural Other Cells Pleural Total Protein Pleural LDH Pleural Glucose Pleural Amylase Proteinase 3 (PR3) Ab Myeloperoxidase Ab Glomerular Base Memb Ab Complement C3 Complement C4 Leuk/Lym Interpretation COVID-19 (DENY) COVID-19 Clin Com 11/30/21 11/30/21 11/30/21 05:05 05:05 05:05 WBC 22.2 H RBC 3.66 L Hgb 9.3 L Hct 31.2 L MCV 85.2 MCH 25.4 L MCHC 29.8 L RDW 18.6 H Plt Count 315 MPV 12.8 H Immature Gran % (Auto) Neut % (Auto) Lymph % (Auto) [place] % (Auto) Eos % (Auto) Baso % (Auto) Lymph # (Auto) [place] # (Auto) Eos # (Auto) Baso # (Auto) Abs Immat Gran (auto) Absolute Neuts (auto) Absolute Nucleated RBC 0.020 H Nucleated RBC % (auto) 0.1 Smear Tech's Comments PT INR D-Dimer High Sensitivty O2 Saturation ABG pH at Pt Temp ABG pCO2 at Pt Temp ABG pO2 at Pt Temp ABG HCO3 ABG Base Excess (Actual) VBG pH VBG pCO2 VBG pO2 VBG HCO3 VBG O2 Saturation VBG Base Excess Sodium 149 H Potassium 3.2 L Chloride 106 Carbon Dioxide 31 H Anion Gap 15 BUN 49 H Creatinine 1.57 H Estim Creat Clear Calc 47.1 Estimated GFR 33 POC Glucose Random Glucose 98 Lactic Acid Uric Acid Calcium 7.3 L Phosphorus 2.9 Magnesium 2.5 Total Bilirubin Direct Bilirubin AST ALT Alkaline Phosphatase Lactate Dehydrogenase Troponin I High Sens C-Reactive Protein B-Natriuretic Peptide 246 H Total Protein Albumin Procalcitonin TSH Urine Color Urine Appearance Urine pH Ur Specific Pearson Urine Protein Urine Glucose (UA) Urine Ketones Urine Blood Urine Nitrite Ur Leukocyte Esterase Urine RBC Urine WBC Urine WBC Clumps Ur Squamous Epith Cells Ur Transition Epith Cell Ur Renal Epithelial Cell Calcium Oxalate Crystal Leucine Crystals Cystine Crystals Tyrosine Crystals Other Crystals Urine Bacteria Urine Parasites Bilirubin Casts Epithelial Casts Fatty Casts Hyaline Casts Granular Casts Waxy Casts Broad Casts RBC Casts WBC Casts Other Casts Urine Trichomonas Urine Yeast Ur Random Sodium Urine Creatinine Pleural pH Pleural WBC Pleural RBC Pleural Neutrophils Pleural Lymphocytes Pleural Monocytes Pleural Eosinophils Pleural Other Cells Pleural Total Protein Pleural LDH Pleural Glucose Pleural Amylase Proteinase 3 (PR3) Ab Myeloperoxidase Ab Glomerular Base Memb Ab Complement C3 Complement C4 Leuk/Lym Interpretation COVID-19 (DENY) COVID-19 Clin Com 11/30/21 11/30/21 11/30/21 05:11 05:46 07:09 WBC RBC Hgb Hct MCV MCH MCHC RDW Plt Count MPV Immature Gran % (Auto) Neut % (Auto) Lymph % (Auto) [place] % (Auto) Eos % (Auto) Baso % (Auto) Lymph # (Auto) [place] # (Auto) Eos # (Auto) Baso # (Auto) Abs Immat Gran (auto) Absolute Neuts (auto) Absolute Nucleated RBC Nucleated RBC % (auto) Smear Tech's Comments PT INR D-Dimer High Sensitivty O2 Saturation ABG pH at Pt Temp ABG pCO2 at Pt Temp ABG pO2 at Pt Temp ABG HCO3 ABG Base Excess (Actual) VBG pH 7.48 H VBG pCO2 42 VBG pO2 41 VBG HCO3 31 H VBG O2 Saturation 73.0 VBG Base Excess 7.8 Sodium Potassium Chloride Carbon Dioxide Anion Gap BUN Creatinine Estim Creat Clear Calc Estimated GFR POC Glucose 103 98 Random Glucose Lactic Acid Uric Acid Calcium Phosphorus Magnesium Total Bilirubin Direct Bilirubin AST ALT Alkaline Phosphatase Lactate Dehydrogenase Troponin I High Sens C-Reactive Protein B-Natriuretic Peptide Total Protein Albumin Procalcitonin TSH Urine Color Urine Appearance Urine pH Ur Specific Pearson Urine Protein Urine Glucose (UA) Urine Ketones Urine Blood Urine Nitrite Ur Leukocyte Esterase Urine RBC Urine WBC Urine WBC Clumps Ur Squamous Epith Cells Ur Transition Epith Cell Ur Renal Epithelial Cell Calcium Oxalate Crystal Leucine Crystals Cystine Crystals Tyrosine Crystals Other Crystals Urine Bacteria Urine Parasites Bilirubin Casts Epithelial Casts Fatty Casts Hyaline Casts Granular Casts Waxy Casts Broad Casts RBC Casts WBC Casts Other Casts Urine Trichomonas Urine Yeast Ur Random Sodium Urine Creatinine Pleural pH Pleural WBC Pleural RBC Pleural Neutrophils Pleural Lymphocytes Pleural Monocytes Pleural Eosinophils Pleural Other Cells Pleural Total Protein Pleural LDH Pleural Glucose Pleural Amylase Proteinase 3 (PR3) Ab Myeloperoxidase Ab Glomerular Base Memb Ab Complement C3 Complement C4 Leuk/Lym Interpretation COVID-19 (DENY) COVID-19 Clin Com 11/30/21 11/30/21 11/30/21 11:37 11:40 13:28 WBC RBC Hgb Hct MCV MCH MCHC RDW Plt Count MPV Immature Gran % (Auto) Neut % (Auto) Lymph % (Auto) [place] % (Auto) Eos % (Auto) Baso % (Auto) Lymph # (Auto) [place] # (Auto) Eos # (Auto) Baso # (Auto) Abs Immat Gran (auto) Absolute Neuts (auto) Absolute Nucleated RBC Nucleated RBC % (auto) Smear Tech's Comments PT INR D-Dimer High Sensitivty O2 Saturation ABG pH at Pt Temp ABG pCO2 at Pt Temp ABG pO2 at Pt Temp ABG HCO3 ABG Base Excess (Actual) VBG pH VBG pCO2 VBG pO2 VBG HCO3 VBG O2 Saturation VBG Base Excess Sodium Potassium Chloride Carbon Dioxide Anion Gap BUN Creatinine Estim Creat Clear Calc Estimated GFR POC Glucose 44 L* 56 L* 79 Random Glucose Lactic Acid Uric Acid Calcium Phosphorus Magnesium Total Bilirubin Direct Bilirubin AST ALT Alkaline Phosphatase Lactate Dehydrogenase Troponin I High Sens C-Reactive Protein B-Natriuretic Peptide Total Protein Albumin Procalcitonin TSH Urine Color Urine Appearance Urine pH Ur Specific Pearson Urine Protein Urine Glucose (UA) Urine Ketones Urine Blood Urine Nitrite Ur Leukocyte Esterase Urine RBC Urine WBC Urine WBC Clumps Ur Squamous Epith Cells Ur Transition Epith Cell Ur Renal Epithelial Cell Calcium Oxalate Crystal Leucine Crystals Cystine Crystals Tyrosine Crystals Other Crystals Urine Bacteria Urine Parasites Bilirubin Casts Epithelial Casts Fatty Casts Hyaline Casts Granular Casts Waxy Casts Broad Casts RBC Casts WBC Casts Other Casts Urine Trichomonas Urine Yeast Ur Random Sodium Urine Creatinine Pleural pH Pleural WBC Pleural RBC Pleural Neutrophils Pleural Lymphocytes Pleural Monocytes Pleural Eosinophils Pleural Other Cells Pleural Total Protein Pleural LDH Pleural Glucose Pleural Amylase Proteinase 3 (PR3) Ab Myeloperoxidase Ab Glomerular Base Memb Ab Complement C3 Complement C4 Leuk/Lym Interpretation COVID-19 (DENY) COVID-19 Clin Com 11/30/21 11/30/21 11/30/21 18:24 21:47 23:20 WBC RBC Hgb Hct MCV MCH MCHC RDW Plt Count MPV Immature Gran % (Auto) Neut % (Auto) Lymph % (Auto) [place] % (Auto) Eos % (Auto) Baso % (Auto) Lymph # (Auto) [place] # (Auto) Eos # (Auto) Baso # (Auto) Abs Immat Gran (auto) Absolute Neuts (auto) Absolute Nucleated RBC Nucleated RBC % (auto) Smear Tech's Comments PT INR D-Dimer High Sensitivty O2 Saturation ABG pH at Pt Temp ABG pCO2 at Pt Temp ABG pO2 at Pt Temp ABG HCO3 ABG Base Excess (Actual) VBG pH VBG pCO2 VBG pO2 VBG HCO3 VBG O2 Saturation VBG Base Excess Sodium 144 Potassium 3.1 L Chloride 104 Carbon Dioxide 28 Anion Gap 15 BUN 44 H Creatinine 1.50 H Estim Creat Clear Calc 49.2 Estimated GFR 34 POC Glucose 119 H 147 H Random Glucose 170 H Lactic Acid Uric Acid Calcium 7.5 L Phosphorus Magnesium Total Bilirubin 0.4 Direct Bilirubin AST 30 D ALT 32 H Alkaline Phosphatase 58 D Lactate Dehydrogenase Troponin I High Sens C-Reactive Protein B-Natriuretic Peptide Total Protein 5.5 L Albumin 2.8 L Procalcitonin TSH Urine Color Urine Appearance Urine pH Ur Specific Pearson Urine Protein Urine Glucose (UA) Urine Ketones Urine Blood Urine Nitrite Ur Leukocyte Esterase Urine RBC Urine WBC Urine WBC Clumps Ur Squamous Epith Cells Ur Transition Epith Cell Ur Renal Epithelial Cell Calcium Oxalate Crystal Leucine Crystals Cystine Crystals Tyrosine Crystals Other Crystals Urine Bacteria Urine Parasites Bilirubin Casts Epithelial Casts Fatty Casts Hyaline Casts Granular Casts Waxy Casts Broad Casts RBC Casts WBC Casts Other Casts Urine Trichomonas Urine Yeast Ur Random Sodium Urine Creatinine Pleural pH Pleural WBC Pleural RBC Pleural Neutrophils Pleural Lymphocytes Pleural Monocytes Pleural Eosinophils Pleural Other Cells Pleural Total Protein Pleural LDH Pleural Glucose Pleural Amylase Proteinase 3 (PR3) Ab Myeloperoxidase Ab Glomerular Base Memb Ab Complement C3 Complement C4 Leuk/Lym Interpretation COVID-19 (DENY) COVID-19 Clin Com 12/01/21 12/01/21 12/01/21 05:22 05:46 05:46 WBC 19.8 H RBC 3.68 L Hgb 9.2 L Hct 30.9 L MCV 84.0 MCH 25.0 L MCHC 29.8 L RDW 18.4 H Plt Count 296 MPV 12.4 H Immature Gran % (Auto) 1.8 H Neut % (Auto) 71.3 Lymph % (Auto) 12.5 L [place] % (Auto) 6.0 Eos % (Auto) 7.9 H Baso % (Auto) 0.5 Lymph # (Auto) 2.5 [place] # (Auto) 1.2 Eos # (Auto) 1.6 H Baso # (Auto) 0.1 Abs Immat Gran (auto) 0.36 H Absolute Neuts (auto) 14.1 H Absolute Nucleated RBC 0.000 Nucleated RBC % (auto) 0.0 Smear Tech's Comments PT INR D-Dimer High Sensitivty O2 Saturation ABG pH at Pt Temp ABG pCO2 at Pt Temp ABG pO2 at Pt Temp ABG HCO3 ABG Base Excess (Actual) VBG pH VBG pCO2 VBG pO2 VBG HCO3 VBG O2 Saturation VBG Base Excess Sodium 142 Potassium 3.3 Chloride 104 Carbon Dioxide 28 Anion Gap 13 BUN 41 H Creatinine 1.41 H Estim Creat Clear Calc 52.8 Estimated GFR 37 POC Glucose 169 H Random Glucose 184 H Lactic Acid Uric Acid Calcium 7.2 L Phosphorus 3.3 Magnesium 2.1 Total Bilirubin 0.4 Direct Bilirubin AST 30 ALT 30 Alkaline Phosphatase 61 Lactate Dehydrogenase Troponin I High Sens C-Reactive Protein B-Natriuretic Peptide Total Protein 5.5 L Albumin 2.8 L Procalcitonin TSH Urine Color Urine Appearance Urine pH Ur Specific Pearson Urine Protein Urine Glucose (UA) Urine Ketones Urine Blood Urine Nitrite Ur Leukocyte Esterase Urine RBC Urine WBC Urine WBC Clumps Ur Squamous Epith Cells Ur Transition Epith Cell Ur Renal Epithelial Cell Calcium Oxalate Crystal Leucine Crystals Cystine Crystals Tyrosine Crystals Other Crystals Urine Bacteria Urine Parasites Bilirubin Casts Epithelial Casts Fatty Casts Hyaline Casts Granular Casts Waxy Casts Broad Casts RBC Casts WBC Casts Other Casts Urine Trichomonas Urine Yeast Ur Random Sodium Urine Creatinine Pleural pH Pleural WBC Pleural RBC Pleural Neutrophils Pleural Lymphocytes Pleural Monocytes Pleural Eosinophils Pleural Other Cells Pleural Total Protein Pleural LDH Pleural Glucose Pleural Amylase Proteinase 3 (PR3) Ab Myeloperoxidase Ab Glomerular Base Memb Ab Complement C3 Complement C4 Leuk/Lym Interpretation COVID-19 (DENY) COVID-19 Clin Com 12/01/21 12/01/21 12/01/21 05:46 05:46 05:47 WBC RBC Hgb Hct MCV MCH MCHC RDW Plt Count MPV Immature Gran % (Auto) Neut % (Auto) Lymph % (Auto) [place] % (Auto) Eos % (Auto) Baso % (Auto) Lymph # (Auto) [place] # (Auto) Eos # (Auto) Baso # (Auto) Abs Immat Gran (auto) Absolute Neuts (auto) Absolute Nucleated RBC Nucleated RBC % (auto) Smear Tech's Comments PT INR D-Dimer High Sensitivty O2 Saturation ABG pH at Pt Temp ABG pCO2 at Pt Temp ABG pO2 at Pt Temp ABG HCO3 ABG Base Excess (Actual) VBG pH 7.43 VBG pCO2 46 VBG pO2 35 VBG HCO3 31 H VBG O2 Saturation 58.0 VBG Base Excess 6.6 Sodium Potassium Chloride Carbon Dioxide Anion Gap BUN Creatinine Estim Creat Clear Calc Estimated GFR POC Glucose Random Glucose Lactic Acid Uric Acid Calcium Phosphorus Magnesium Total Bilirubin Direct Bilirubin AST ALT Alkaline Phosphatase Lactate Dehydrogenase Troponin I High Sens C-Reactive Protein B-Natriuretic Peptide 304 H Total Protein Albumin Cancelled Procalcitonin TSH Urine Color Urine Appearance Urine pH Ur Specific Pearson Urine Protein Urine Glucose (UA) Urine Ketones Urine Blood Urine Nitrite Ur Leukocyte Esterase Urine RBC Urine WBC Urine WBC Clumps Ur Squamous Epith Cells Ur Transition Epith Cell Ur Renal Epithelial Cell Calcium Oxalate Crystal Leucine Crystals Cystine Crystals Tyrosine Crystals Other Crystals Urine Bacteria Urine Parasites Bilirubin Casts Epithelial Casts Fatty Casts Hyaline Casts Granular Casts Waxy Casts Broad Casts RBC Casts WBC Casts Other Casts Urine Trichomonas Urine Yeast Ur Random Sodium Urine Creatinine Pleural pH Pleural WBC Pleural RBC Pleural Neutrophils Pleural Lymphocytes Pleural Monocytes Pleural Eosinophils Pleural Other Cells Pleural Total Protein Pleural LDH Pleural Glucose Pleural Amylase Proteinase 3 (PR3) Ab Myeloperoxidase Ab Glomerular Base Memb Ab Complement C3 Complement C4 Leuk/Lym Interpretation COVID-19 (DENY) COVID-19 [facility] 12/01/21 12/01/21 12/01/21 12:05 18:42 21:09 WBC RBC Hgb Hct MCV MCH MCHC RDW Plt Count MPV Immature Gran % (Auto) Neut % (Auto) Lymph % (Auto) [place] % (Auto) Eos % (Auto) Baso % (Auto) Lymph # (Auto) [place] # (Auto) Eos # (Auto) Baso # (Auto) Abs Immat Gran (auto) Absolute Neuts (auto) Absolute Nucleated RBC Nucleated RBC % (auto) Smear Tech's Comments PT INR D-Dimer High Sensitivty O2 Saturation ABG pH at Pt Temp ABG pCO2 at Pt Temp ABG pO2 at Pt Temp ABG HCO3 ABG Base Excess (Actual) VBG pH VBG pCO2 VBG pO2 VBG HCO3 VBG O2 Saturation VBG Base Excess Sodium Potassium Chloride Carbon Dioxide Anion Gap BUN Creatinine Estim Creat Clear Calc Estimated GFR POC Glucose 93 74 107 Random Glucose Lactic Acid Uric Acid Calcium Phosphorus Magnesium Total Bilirubin Direct Bilirubin AST ALT Alkaline Phosphatase Lactate Dehydrogenase Troponin I High Sens C-Reactive Protein B-Natriuretic Peptide Total Protein Albumin Procalcitonin TSH Urine Color Urine Appearance Urine pH Ur Specific Pearson Urine Protein Urine Glucose (UA) Urine Ketones Urine Blood Urine Nitrite Ur Leukocyte Esterase Urine RBC Urine WBC Urine WBC Clumps Ur Squamous Epith Cells Ur Transition Epith Cell Ur Renal Epithelial Cell Calcium Oxalate Crystal Leucine Crystals Cystine Crystals Tyrosine Crystals Other Crystals Urine Bacteria Urine Parasites Bilirubin Casts Epithelial Casts Fatty Casts Hyaline Casts Granular Casts Waxy Casts Broad Casts RBC Casts WBC Casts Other Casts Urine Trichomonas Urine Yeast Ur Random Sodium Urine Creatinine Pleural pH Pleural WBC Pleural RBC Pleural Neutrophils Pleural Lymphocytes Pleural Monocytes Pleural Eosinophils Pleural Other Cells Pleural Total Protein Pleural LDH Pleural Glucose Pleural Amylase Proteinase 3 (PR3) Ab Myeloperoxidase Ab Glomerular Base Memb Ab Complement C3 Complement C4 Leuk/Lym Interpretation COVID-19 (DENY) COVID-19 Clin Com 12/01/21 12/02/21 12/02/21 23:27 05:07 05:07 WBC 15.7 H RBC 3.36 L Hgb 8.4 L Hct 28.1 L MCV 83.6 MCH 25.0 L MCHC 29.9 L RDW 18.0 H Plt Count 256 MPV 12.8 H Immature Gran % (Auto) 1.6 H Neut % (Auto) 71.3 Lymph % (Auto) 13.1 L [place] % (Auto) 5.8 Eos % (Auto) 7.8 H Baso % (Auto) 0.4 Lymph # (Auto) 2.1 [place] # (Auto) 0.9 Eos # (Auto) 1.2 H Baso # (Auto) 0.1 Abs Immat Gran (auto) 0.25 H Absolute Neuts (auto) 11.2 H Absolute Nucleated RBC 0.000 Nucleated RBC % (auto) 0.0 Smear Tech's Comments PT INR D-Dimer High Sensitivty O2 Saturation ABG pH at Pt Temp ABG pCO2 at Pt Temp ABG pO2 at Pt Temp ABG HCO3 ABG Base Excess (Actual) VBG pH VBG pCO2 VBG pO2 VBG HCO3 VBG O2 Saturation VBG Base Excess Sodium 140 Potassium 2.9 L Chloride 104 Carbon Dioxide 25 Anion Gap 14 BUN 38 H Creatinine 1.32 Estim Creat Clear Calc 56.9 Estimated GFR 40 POC Glucose 89 Random Glucose 82 Lactic Acid Uric Acid Calcium 7.7 L D Phosphorus 3.2 Magnesium 2.1 Total Bilirubin 0.3 Direct Bilirubin AST 23 ALT 25 Alkaline Phosphatase 53 Lactate Dehydrogenase Troponin I High Sens C-Reactive Protein B-Natriuretic Peptide Total Protein 5.4 L Albumin 3.1 L Procalcitonin TSH Urine Color Urine Appearance Urine pH Ur Specific Pearson Urine Protein Urine Glucose (UA) Urine Ketones Urine Blood Urine Nitrite Ur Leukocyte Esterase Urine RBC Urine WBC Urine WBC Clumps Ur Squamous Epith Cells Ur Transition Epith Cell Ur Renal Epithelial Cell Calcium Oxalate Crystal Leucine Crystals Cystine Crystals Tyrosine Crystals Other Crystals Urine Bacteria Urine Parasites Bilirubin Casts Epithelial Casts Fatty Casts Hyaline Casts Granular Casts Waxy Casts Broad Casts RBC Casts WBC Casts Other Casts Urine Trichomonas Urine Yeast Ur Random Sodium Urine Creatinine Pleural pH Pleural WBC Pleural RBC Pleural Neutrophils Pleural Lymphocytes Pleural Monocytes Pleural Eosinophils Pleural Other Cells Pleural Total Protein Pleural LDH Pleural Glucose Pleural Amylase Proteinase 3 (PR3) Ab Myeloperoxidase Ab Glomerular Base Memb Ab Complement C3 Complement C4 Leuk/Lym Interpretation COVID-19 (DENY) COVID-19 Clin Com 12/02/21 12/02/21 12/02/21 05:07 05:07 11:48 WBC RBC Hgb Hct MCV MCH MCHC RDW Plt Count MPV Immature Gran % (Auto) Neut % (Auto) Lymph % (Auto) [place] % (Auto) Eos % (Auto) Baso % (Auto) Lymph # (Auto) [place] # (Auto) Eos # (Auto) Baso # (Auto) Abs Immat Gran (auto) Absolute Neuts (auto) Absolute Nucleated RBC Nucleated RBC % (auto) Smear Tech's Comments PT INR D-Dimer High Sensitivty O2 Saturation ABG pH at Pt Temp ABG pCO2 at Pt Temp ABG pO2 at Pt Temp ABG HCO3 ABG Base Excess (Actual) VBG pH 7.46 H VBG pCO2 37 VBG pO2 36 VBG HCO3 26 VBG O2 Saturation 62.0 VBG Base Excess 3.0 Sodium Potassium Chloride Carbon Dioxide Anion Gap BUN Creatinine Estim Creat Clear Calc Estimated GFR POC Glucose 99 Random Glucose Lactic Acid Uric Acid Calcium Phosphorus Magnesium Total Bilirubin Direct Bilirubin AST ALT Alkaline Phosphatase Lactate Dehydrogenase Troponin I High Sens C-Reactive Protein B-Natriuretic Peptide 347 H Total Protein Albumin Procalcitonin TSH Urine Color Urine Appearance Urine pH Ur Specific Pearson Urine Protein Urine Glucose (UA) Urine Ketones Urine Blood Urine Nitrite Ur Leukocyte Esterase Urine RBC Urine WBC Urine WBC Clumps Ur Squamous Epith Cells Ur Transition Epith Cell Ur Renal Epithelial Cell Calcium Oxalate Crystal Leucine Crystals Cystine Crystals Tyrosine Crystals Other Crystals Urine Bacteria Urine Parasites Bilirubin Casts Epithelial Casts Fatty Casts Hyaline Casts Granular Casts Waxy Casts Broad Casts RBC Casts WBC Casts Other Casts Urine Trichomonas Urine Yeast Ur Random Sodium Urine Creatinine Pleural pH Pleural WBC Pleural RBC Pleural Neutrophils Pleural Lymphocytes Pleural Monocytes Pleural Eosinophils Pleural Other Cells Pleural Total Protein Pleural LDH Pleural Glucose Pleural Amylase Proteinase 3 (PR3) Ab Myeloperoxidase Ab Glomerular Base Memb Ab Complement C3 Complement C4 Leuk/Lym Interpretation COVID-19 (DENY) COVID-19 Clin Com 12/02/21 12/02/21 12/02/21 12:24 17:28 20:34 WBC RBC Hgb Hct MCV MCH MCHC RDW Plt Count MPV Immature Gran % (Auto) Neut % (Auto) Lymph % (Auto) [place] % (Auto) Eos % (Auto) Baso % (Auto) Lymph # (Auto) [place] # (Auto) Eos # (Auto) Baso # (Auto) Abs Immat Gran (auto) Absolute Neuts (auto) Absolute Nucleated RBC Nucleated RBC % (auto) Smear Tech's Comments PT INR D-Dimer High Sensitivty O2 Saturation ABG pH at Pt Temp ABG pCO2 at Pt Temp ABG pO2 at Pt Temp ABG HCO3 ABG Base Excess (Actual) VBG pH VBG pCO2 VBG pO2 VBG HCO3 VBG O2 Saturation VBG Base Excess Sodium Potassium Chloride Carbon Dioxide Anion Gap BUN Creatinine Estim Creat Clear Calc Estimated GFR POC Glucose 123 H 121 H Random Glucose Lactic Acid Uric Acid Calcium Phosphorus Magnesium Total Bilirubin Direct Bilirubin AST ALT Alkaline Phosphatase Lactate Dehydrogenase Troponin I High Sens C-Reactive Protein B-Natriuretic Peptide Total Protein Albumin Procalcitonin TSH Urine Color Yellow Urine Appearance Cloudy Urine pH 6.5 Ur Specific Pearson 1.020 Urine Protein 30 (1+) H Urine Glucose (UA) Negative Urine Ketones Negative Urine Blood Moderate (2+) H Urine Nitrite Negative Ur Leukocyte Esterase Large (3+) H Urine RBC >20 H Urine WBC >50 H Urine WBC Clumps Present Ur Squamous Epith Cells 0-2 Ur Transition Epith Cell Cancelled Ur Renal Epithelial Cell Cancelled Calcium Oxalate Crystal Cancelled Leucine Crystals Cancelled Cystine Crystals Cancelled Tyrosine Crystals Cancelled Other Crystals Cancelled Urine Bacteria 4+ Urine Parasites Cancelled Bilirubin Casts Cancelled Epithelial Casts Cancelled Fatty Casts Cancelled Hyaline Casts 6-10 Granular Casts Cancelled Waxy Casts Cancelled Broad Casts Cancelled RBC Casts Cancelled WBC Casts Cancelled Other Casts Cancelled Urine Trichomonas Cancelled Urine Yeast Cancelled Ur Random Sodium Urine Creatinine Pleural pH Pleural WBC Pleural RBC Pleural Neutrophils Pleural Lymphocytes Pleural Monocytes Pleural Eosinophils Pleural Other Cells Pleural Total Protein Pleural LDH Pleural Glucose Pleural Amylase Proteinase 3 (PR3) Ab Myeloperoxidase Ab Glomerular Base Memb Ab Complement C3 Complement C4 Leuk/Lym Interpretation COVID-19 (DENY) COVID-19 Clin Com 12/02/21 12/03/21 12/03/21 23:36 04:03 05:30 WBC 15.9 H RBC 3.48 L Hgb 8.8 L Hct 28.9 L MCV 83.0 MCH 25.3 L MCHC 30.4 L RDW 18.5 H Plt Count 265 MPV 12.3 Immature Gran % (Auto) 1.8 H Neut % (Auto) 72.1 Lymph % (Auto) 12.9 L [place] % (Auto) 6.7 Eos % (Auto) 6.1 H Baso % (Auto) 0.4 Lymph # (Auto) 2.1 [place] # (Auto) 1.1 Eos # (Auto) 1.0 H Baso # (Auto) 0.1 Abs Immat Gran (auto) 0.29 H Absolute Neuts (auto) 11.4 H Absolute Nucleated RBC 0.000 Nucleated RBC % (auto) 0.0 Smear Tech's Comments PT INR D-Dimer High Sensitivty O2 Saturation ABG pH at Pt Temp ABG pCO2 at Pt Temp ABG pO2 at Pt Temp ABG HCO3 ABG Base Excess (Actual) VBG pH VBG pCO2 VBG pO2 VBG HCO3 VBG O2 Saturation VBG Base Excess Sodium Potassium Chloride Carbon Dioxide Anion Gap BUN Creatinine Estim Creat Clear Calc Estimated GFR POC Glucose 136 H 170 H Random Glucose Lactic Acid Uric Acid Calcium Phosphorus Magnesium Total Bilirubin Direct Bilirubin AST ALT Alkaline Phosphatase Lactate Dehydrogenase Troponin I High Sens C-Reactive Protein B-Natriuretic Peptide Total Protein Albumin Procalcitonin TSH Urine Color Urine Appearance Urine pH Ur Specific Pearson Urine Protein Urine Glucose (UA) Urine Ketones Urine Blood Urine Nitrite Ur Leukocyte Esterase Urine RBC Urine WBC Urine WBC Clumps Ur Squamous Epith Cells Ur Transition Epith Cell Ur Renal Epithelial Cell Calcium Oxalate Crystal Leucine Crystals Cystine Crystals Tyrosine Crystals Other Crystals Urine Bacteria Urine Parasites Bilirubin Casts Epithelial Casts Fatty Casts Hyaline Casts Granular Casts Waxy Casts Broad Casts RBC Casts WBC Casts Other Casts Urine Trichomonas Urine Yeast Ur Random Sodium Urine Creatinine Pleural pH Pleural WBC Pleural RBC Pleural Neutrophils Pleural Lymphocytes Pleural Monocytes Pleural Eosinophils Pleural Other Cells Pleural Total Protein Pleural LDH Pleural Glucose Pleural Amylase Proteinase 3 (PR3) Ab Myeloperoxidase Ab Glomerular Base Memb Ab Complement C3 Complement C4 Leuk/Lym Interpretation COVID-19 (DENY) COVID-19 Clin Com 12/03/21 12/03/21 12/03/21 05:30 05:30 05:33 WBC RBC Hgb Hct MCV MCH MCHC RDW Plt Count MPV Immature Gran % (Auto) Neut % (Auto) Lymph % (Auto) [place] % (Auto) Eos % (Auto) Baso % (Auto) Lymph # (Auto) [place] # (Auto) Eos # (Auto) Baso # (Auto) Abs Immat Gran (auto) Absolute Neuts (auto) Absolute Nucleated RBC Nucleated RBC % (auto) Smear Tech's Comments PT INR D-Dimer High Sensitivty O2 Saturation ABG pH at Pt Temp ABG pCO2 at Pt Temp ABG pO2 at Pt Temp ABG HCO3 ABG Base Excess (Actual) VBG pH 7.47 H VBG pCO2 30 VBG pO2 33 VBG HCO3 22 VBG O2 Saturation 52.0 VBG Base Excess -0.1 Sodium 139 Potassium 3.9 D Chloride 106 Carbon Dioxide 24 Anion Gap 13 BUN 36 H Creatinine 1.48 H Estim Creat Clear Calc 50.7 Estimated GFR 35 POC Glucose Random Glucose 170 H Lactic Acid Uric Acid Calcium 8.0 L Phosphorus 3.2 Magnesium 2.1 Total Bilirubin 0.3 Direct Bilirubin AST 24 ALT 24 Alkaline Phosphatase 56 Lactate Dehydrogenase Troponin I High Sens C-Reactive Protein B-Natriuretic Peptide 346 H Total Protein 5.5 L Albumin 3.0 L Procalcitonin TSH Urine Color Urine Appearance Urine pH Ur Specific Pearson Urine Protein Urine Glucose (UA) Urine Ketones Urine Blood Urine Nitrite Ur Leukocyte Esterase Urine RBC Urine WBC Urine WBC Clumps Ur Squamous Epith Cells Ur Transition Epith Cell Ur Renal Epithelial Cell Calcium Oxalate Crystal Leucine Crystals Cystine Crystals Tyrosine Crystals Other Crystals Urine Bacteria Urine Parasites Bilirubin Casts Epithelial Casts Fatty Casts Hyaline Casts Granular Casts Waxy Casts Broad Casts RBC Casts WBC Casts Other Casts Urine Trichomonas Urine Yeast Ur Random Sodium Urine Creatinine Pleural pH Pleural WBC Pleural RBC Pleural Neutrophils Pleural Lymphocytes Pleural Monocytes Pleural Eosinophils Pleural Other Cells Pleural Total Protein Pleural LDH Pleural Glucose Pleural Amylase Proteinase 3 (PR3) Ab Myeloperoxidase Ab Glomerular Base Memb Ab Complement C3 Complement C4 Leuk/Lym Interpretation COVID-19 (DENY) COVID-19 Clin Com Airway Other: Pt is intubated in ICU Assessment and Plan Assessment Anesthesia Assessment: Anesthesia Plan Discussed Final Anesthetic Review Family History of Problems with Anesthesia: No History of Problems with Anesthesia: No ASA Class: IV Final Preanesthetic Review: No Changes in Pt Med Stat, Meds/Allgs Chart Reviewed and Anes Risks/Benef Reviewed Patient Risk: Intermediate Procedure Risk: Intermediate Anesthetic Plan Anesthetic Plan: GA Disposition: Inp. Admit - ICU
--- NOTE | 2021-12-03 08:41 | MHC.CM.PN ---
JACEY DOOLEY HASTINGS, ONELIA SOLORZANO, AND JAVAN AT [facility] UPDATED WITH PROGRESS NOTES. CASE MANAGEMENT CONTINUING TO FOLLOW
--- NOTE | 2021-12-03 10:03 | P.BOP_ITS ---
Brief Operative Note Date of Service: 12/03/21 Pre-op diagnosis: lymphadenopathy, respiratory failure Post-op diagnosis: same Procedure: EBUS with FNA and bronchoscopy with washings Implants: Surgeon: Blaise Julian MD Anesthesia: GETA Was an Digital Computer Systems Analyst used for this Procedure?: No Estimated blood loss (mL): 0 Pathology: other (TBNA station 4R and 7) Condition: stable Disposition: ICU
--- NOTE | 2021-12-03 11:16 | OP_ITS ---
SURGEON: Blaise Julian MD PREOPERATIVE DIAGNOSIS: Lymphadenopathy and respiratory failure. POSTOPERATIVE DIAGNOSIS: Lymphadenopathy and respiratory failure. PROCEDURE PERFORMED: ESTIMATED BLOOD LOSS: COMPLICATIONS: ANESTHESIA: Patient was already intubated and was placed on propofol and was already on Precedex. She had a #[address] ASSISTANTS: SPECIMENS: ASA CLASSIFICATION: 4. DESCRIPTION OF PROCEDURE: After the patient is adequately sedated, the flexible digital bronchoscope with endobronchial ultrasound bronchoscopy (EBUS), was inserted via the ET tube #8 to level the main colette. There was a tight fit, and I did have to remove the scope multiple times during the procedure due to airway resistance. However, the patient did oxygenate well throughout the procedure. Using the ultrasound guidance, the stations were evaluated. The patient did have about a 2.5 to 3 cm right paratracheal lymph node that was abnormal in size and appearance, and also had about 1.5 to 2 cm subcarinal lymph node that was also abnormal in size and appearance. Using ultrasound guidance, real-time transbronchial needle aspirations were gathered initially as station 4R and specimen given to the pathologist. They did see adequate lymph node sampling. No evidence of any malignancy. Five passes were collected and sent for both cytology and also flow cytometry. The bronchoscope was navigated to station 7, where using ultrasound guidance, TBNA was done, 3 passes were done. Did notice some scant lymphocytes. The needle was getting difficult to use due to the fact that the stylet was no longer working. Therefore, I was not collecting specimens as well. After 3 specimens, then we completed the EBUS component of the procedure. Again, the specimens were sent for both cytology and for flow cytometry from station 7. The EBUS bronchoscope was then removed. A regular Q180 bronchoscopy was done. The tracheobronchial tree was examined up to the subsegmental level. The patient did have some evidence of tracheobronchomalacia even with a positive pressure from the ventilator. It is likely much worse without the positive pressure. She did have also some bogginess of the mucosa suggesting some pulmonary edema and some congestion. The patient did have mucus plugging that were removed and cleaning of the airways were done. Using saline, washings were done in all the segments clearing all the mucus plugging. The patient did not have any significant bleeding at the end of the procedure. The bronchoscope was then removed. The total endoscopic time approximately 1 hour. The patient tolerated the procedure well. Vital signs were stable throughout the procedure. multiple times due to the airway resistance because of smaller ET tube. Otherwise, she did well. INTERPRETATION: 1. Successful EBUS TBNA of station 4R and station 7. 2. Bronchial washings bilaterally for cytology and for microbiology. No apparent complications. MD PAULY Handy/ARAY / [phone]
--- NOTE | 2021-12-03 11:25 | PM.PNNEP ---
Subjective Subjective Date of Service: 12/03/21 Interval history: Events noted. Seen AM. All recent data reviewed Physical Exam Vital Signs: Vital Signs: Last Vital Signs Temp 99.9 F 12/03/21 11:00 Pulse 54 12/03/21 11:00 Resp 21 H 12/03/21 11:00 BP 131/41 L 12/03/21 11:00 Pulse Ox 93 12/03/21 11:00 O2 Del Method 12/03/21 11:00 FiO2 25 12/03/21 11:00 BMI result Body Mass Index 52.0 Const: General: no acute distress Neck: Neck: Yes supple Resp: Auscultation: diminished lung sounds Cardio: Rate: regular rate GI: Palpation (GI): Soft to palpation Skin: General skin exam: no rashes or lesions noted Objective Data Labs CBC & Chem 7: 12/03/21 05:30 12/03/21 05:30 Labs: Laboratory Results - last 24 hr 12/02/21 12/02/21 12/02/21 11:48 12:24 17:28 WBC RBC Hgb Hct MCV MCH MCHC RDW Plt Count MPV Immature Gran % (Auto) Neut % (Auto) Lymph % (Auto) [place] % (Auto) Eos % (Auto) Baso % (Auto) Lymph # (Auto) [place] # (Auto) Eos # (Auto) Baso # (Auto) Abs Immat Gran (auto) Absolute Neuts (auto) Absolute Nucleated RBC Nucleated RBC % (auto) VBG pH VBG pCO2 VBG pO2 VBG HCO3 VBG O2 Saturation VBG Base Excess Sodium Potassium Chloride Carbon Dioxide Anion Gap BUN Creatinine Estim Creat Clear Calc Estimated GFR POC Glucose 99 123 H Random Glucose Calcium Phosphorus Magnesium Total Bilirubin AST ALT Alkaline Phosphatase B-Natriuretic Peptide Total Protein Albumin Urine Color Yellow Urine Appearance Cloudy Urine pH 6.5 Ur Specific [place] 1.020 Urine Protein 30 (1+) H Urine Glucose (UA) Negative Urine Ketones Negative Urine Blood Moderate (2+) H Urine Nitrite Negative Ur Leukocyte Esterase Large (3+) H Urine RBC >20 H Urine WBC >50 H Urine WBC Clumps Present Ur Squamous Epith Cells 0-2 Ur Transition Epith Cell Cancelled Ur Renal Epithelial Cell Cancelled Calcium Oxalate Crystal Cancelled Leucine Crystals Cancelled Cystine Crystals Cancelled Tyrosine Crystals Cancelled Other Crystals Cancelled Urine Bacteria 4+ Urine Parasites Cancelled Bilirubin Casts Cancelled Epithelial Casts Cancelled Fatty Casts Cancelled Hyaline Casts 6-10 Granular Casts Cancelled Waxy Casts Cancelled Broad Casts Cancelled RBC Casts Cancelled WBC Casts Cancelled Other Casts Cancelled Urine Trichomonas Cancelled Urine Yeast Cancelled 12/02/21 12/02/21 12/03/21 20:34 23:36 04:03 WBC RBC Hgb Hct MCV MCH MCHC RDW Plt Count MPV Immature Gran % (Auto) Neut % (Auto) Lymph % (Auto) [place] % (Auto) Eos % (Auto) Baso % (Auto) Lymph # (Auto) [place] # (Auto) Eos # (Auto) Baso # (Auto) Abs Immat Gran (auto) Absolute Neuts (auto) Absolute Nucleated RBC Nucleated RBC % (auto) VBG pH VBG pCO2 VBG pO2 VBG HCO3 VBG O2 Saturation VBG Base Excess Sodium Potassium Chloride Carbon Dioxide Anion Gap BUN Creatinine Estim Creat Clear Calc Estimated GFR POC Glucose 121 H 136 H 170 H Random Glucose Calcium Phosphorus Magnesium Total Bilirubin AST ALT Alkaline Phosphatase B-Natriuretic Peptide Total Protein Albumin Urine Color Urine Appearance Urine pH Ur Specific [place] Urine Protein Urine Glucose (UA) Urine Ketones Urine Blood Urine Nitrite Ur Leukocyte Esterase Urine RBC Urine WBC Urine WBC Clumps Ur Squamous Epith Cells Ur Transition Epith Cell Ur Renal Epithelial Cell Calcium Oxalate Crystal Leucine Crystals Cystine Crystals Tyrosine Crystals Other Crystals Urine Bacteria Urine Parasites Bilirubin Casts Epithelial Casts Fatty Casts Hyaline Casts Granular Casts Waxy Casts Broad Casts RBC Casts WBC Casts Other Casts Urine Trichomonas Urine Yeast 12/03/21 12/03/21 12/03/21 05:30 05:30 05:30 WBC 15.9 H RBC 3.48 L Hgb 8.8 L Hct 28.9 L MCV 83.0 MCH 25.3 L MCHC 30.4 L RDW 18.5 H Plt Count 265 MPV 12.3 Immature Gran % (Auto) 1.8 H Neut % (Auto) 72.1 Lymph % (Auto) 12.9 L [place] % (Auto) 6.7 Eos % (Auto) 6.1 H Baso % (Auto) 0.4 Lymph # (Auto) 2.1 [place] # (Auto) 1.1 Eos # (Auto) 1.0 H Baso # (Auto) 0.1 Abs Immat Gran (auto) 0.29 H Absolute Neuts (auto) 11.4 H Absolute Nucleated RBC 0.000 Nucleated RBC % (auto) 0.0 VBG pH VBG pCO2 VBG pO2 VBG HCO3 VBG O2 Saturation VBG Base Excess Sodium 139 Potassium 3.9 D Chloride 106 Carbon Dioxide 24 Anion Gap 13 BUN 36 H Creatinine 1.48 H Estim Creat Clear Calc 50.7 Estimated GFR 35 POC Glucose Random Glucose 170 H Calcium 8.0 L Phosphorus 3.2 Magnesium 2.1 Total Bilirubin 0.3 AST 24 ALT 24 Alkaline Phosphatase 56 B-Natriuretic Peptide 346 H Total Protein 5.5 L Albumin 3.0 L Urine Color Urine Appearance Urine pH Ur Specific [place] Urine Protein Urine Glucose (UA) Urine Ketones Urine Blood Urine Nitrite Ur Leukocyte Esterase Urine RBC Urine WBC Urine WBC Clumps Ur Squamous Epith Cells Ur Transition Epith Cell Ur Renal Epithelial Cell Calcium Oxalate Crystal Leucine Crystals Cystine Crystals Tyrosine Crystals Other Crystals Urine Bacteria Urine Parasites Bilirubin Casts Epithelial Casts Fatty Casts Hyaline Casts Granular Casts Waxy Casts Broad Casts RBC Casts WBC Casts Other Casts Urine Trichomonas Urine Yeast 12/03/21 05:33 WBC RBC Hgb Hct MCV MCH MCHC RDW Plt Count MPV Immature Gran % (Auto) Neut % (Auto) Lymph % (Auto) [place] % (Auto) Eos % (Auto) Baso % (Auto) Lymph # (Auto) [place] # (Auto) Eos # (Auto) Baso # (Auto) Abs Immat Gran (auto) Absolute Neuts (auto) Absolute Nucleated RBC Nucleated RBC % (auto) VBG pH 7.47 H VBG pCO2 30 VBG pO2 33 VBG HCO3 22 VBG O2 Saturation 52.0 VBG Base Excess -0.1 Sodium Potassium Chloride Carbon Dioxide Anion Gap BUN Creatinine Estim Creat Clear Calc Estimated GFR POC Glucose Random Glucose Calcium Phosphorus Magnesium Total Bilirubin AST ALT Alkaline Phosphatase B-Natriuretic Peptide Total Protein Albumin Urine Color Urine Appearance Urine pH Ur Specific [place] Urine Protein Urine Glucose (UA) Urine Ketones Urine Blood Urine Nitrite Ur Leukocyte Esterase Urine RBC Urine WBC Urine WBC Clumps Ur Squamous Epith Cells Ur Transition Epith Cell Ur Renal Epithelial Cell Calcium Oxalate Crystal Leucine Crystals Cystine Crystals Tyrosine Crystals Other Crystals Urine Bacteria Urine Parasites Bilirubin Casts Epithelial Casts Fatty Casts Hyaline Casts Granular Casts Waxy Casts Broad Casts RBC Casts WBC Casts Other Casts Urine Trichomonas Urine Yeast Microbiology Microbiology Results: Microbiology 12/03/21 09:08 Bronchial Washings Gram Stain - Final 12/02/21 12:24 Urine Catheterized - Turner Catheter Urine Culture - Preliminary Gram negative sancho 12/02/21 12:24 Sputum - Suctioned Gram Stain - Final 12/02/21 12:24 Sputum - Suctioned Sputum Culture - Preliminary Gram negative sancho 11/29/21 22:30 Sputum - Suctioned Gram Stain - Final 11/29/21 22:30 Sputum - Suctioned Sputum Culture - Final Klebsiella pneumoniae 11/27/21 13:49 Thoracentesis Fluid Gram Stain - Final 11/27/21 13:49 Thoracentesis Fluid Anaerobic Culture - Final NO GROWTH AFTER 5 DAYS 11/27/21 13:49 Thoracentesis Fluid Body Fluid Culture - Final No growth after 2 days 11/29/21 22:29 Blood - Venous Blood Culture - Final Coag negative Staphylococcus 11/29/21 22:29 Blood - Venous Blood Culture - Preliminary No growth after 48 hours. 11/29/21 22:31 Urine Catheterized - Turner Catheter Urine Culture - Final No growth. 11/25/21 14:57 Blood - Venous Blood Culture - Final No growth after 5 days. 11/25/21 14:57 Blood - Venous Blood Culture - Final No growth after 5 days. 11/25/21 09:30 Pleural Fluid Direct Acid Fast Bacilli Smear - Final 11/25/21 09:30 Pleural Fluid Fungal Identification - Preliminary No growth to date. 11/25/21 09:30 Thoracentesis Fluid Gram Stain - Final 11/25/21 09:30 Thoracentesis Fluid Anaerobic Culture - Final NO GROWTH AFTER 5 DAYS 11/25/21 09:30 Thoracentesis Fluid Body Fluid Culture - Final No growth after 2 days 11/25/21 15:30 Sputum - Suctioned Gram Stain - Final 11/25/21 15:30 Sputum - Suctioned Sputum Culture - Final 11/19/21 18:42 Blood - Venous Blood Culture - Final No growth after 5 days. 11/19/21 18:37 Blood - Venous Blood Culture - Final No growth after 5 days. 11/20/21 03:44 Sputum - Suctioned Gram Stain - Final 11/20/21 03:44 Sputum - Suctioned Sputum Culture - Final 11/20/21 Unknown Urine Catheterized - Turner Catheter Urine Culture - Final No growth. Procedures Date of Service Date of Service: 12/03/21 Assessment & Plan Assessment and plan (1) LEO (acute kidney injury): Status: Acute Assessment and Plan: Has baseline CKD 3 with serum creatinine of 1.4 to 1.7 LEO due to tubular injury- resolved Urine output good ; D/Urban diuretics Renal functions stable Continue rest of current supportive care Time Spent With Patient Time: Total time spent is greater than 50% in coordination of care (as documented) at patient's floor/unit and/or counseling patient: Progress Note: Quality Stroke Does the patient have a stroke diagnosis?: No
[2021-12-03 11:42] LABS: Glucose, Whole Blood 155 mg/dL (60-115)
[2021-12-03] MEDS: dexmedeTOMIDidine HCL/NS 400 MCG/100 ML INFUS..BTL IVCONT (13:31)
--- NOTE | 2021-12-03 14:07 | P.PNCC_ITS ---
Subjective Subjective Date of Service: 12/03/21 Interval History: 71-year-old female with hypoxic respiratory failure intubated now for about 2 weeks and in a because of diffuse lymphadenopathy and questionable monoclonal B- cell pathology she underwent bronchoscopic ultrasound and biopsy which is now pending but surveillance cultures for low-grade temperature revealed gram- negative sancho in both urine and sputum with significant evidence of infection and apparently Klebsiella had grown a little earlier and it is an ESBL so she is currently on meropenem to treat both sites of infection Her CVP measured at about 7-8 this morning and we are able to take her off the assist control and place her on a pressure support modality and after that she had the OR procedure and feedings were restored Critical Care Time (minutes): 35 Physical Exam Vital Signs: Vital Signs: Last Vital Signs Temp 100.4 F 12/03/21 13:00 Pulse 81 12/03/21 13:00 Resp 41 H 12/03/21 13:00 BP 156/51 H 12/03/21 13:00 Pulse Ox 96 12/03/21 13:00 O2 Del Method 12/03/21 13:00 FiO2 25 12/03/21 13:00 BMI result Body Mass Index 52.0 Remains in normal sinus rhythm rate 85 with oxygen saturation 93% and pressure 140/40 Neurologically nonfocal Abdomen soft no organomegaly Bedside echo with preserved LV and RV systolic function Lungs without adventitious sounds Objective Data Labs CBC & Chem 7: 12/03/21 05:30 12/03/21 05:30 Labs: Laboratory Results - last 24 hr 12/02/21 12/02/21 12/02/21 17:28 20:34 23:36 WBC RBC Hgb Hct MCV MCH MCHC RDW Plt Count MPV Immature Gran % (Auto) Neut % (Auto) Lymph % (Auto) [place] % (Auto) Eos % (Auto) Baso % (Auto) Lymph # (Auto) [place] # (Auto) Eos # (Auto) Baso # (Auto) Abs Immat Gran (auto) Absolute Neuts (auto) Absolute Nucleated RBC Nucleated RBC % (auto) VBG pH VBG pCO2 VBG pO2 VBG HCO3 VBG O2 Saturation VBG Base Excess Sodium Potassium Chloride Carbon Dioxide Anion Gap BUN Creatinine Estim Creat Clear Calc Estimated GFR POC Glucose 123 H 121 H 136 H Random Glucose Calcium Phosphorus Magnesium Total Bilirubin AST ALT Alkaline Phosphatase B-Natriuretic Peptide Total Protein Albumin 12/03/21 12/03/21 12/03/21 04:03 05:30 05:30 WBC 15.9 H RBC 3.48 L Hgb 8.8 L Hct 28.9 L MCV 83.0 MCH 25.3 L MCHC 30.4 L RDW 18.5 H Plt Count 265 MPV 12.3 Immature Gran % (Auto) 1.8 H Neut % (Auto) 72.1 Lymph % (Auto) 12.9 L [place] % (Auto) 6.7 Eos % (Auto) 6.1 H Baso % (Auto) 0.4 Lymph # (Auto) 2.1 [place] # (Auto) 1.1 Eos # (Auto) 1.0 H Baso # (Auto) 0.1 Abs Immat Gran (auto) 0.29 H Absolute Neuts (auto) 11.4 H Absolute Nucleated RBC 0.000 Nucleated RBC % (auto) 0.0 VBG pH VBG pCO2 VBG pO2 VBG HCO3 VBG O2 Saturation VBG Base Excess Sodium 139 Potassium 3.9 D Chloride 106 Carbon Dioxide 24 Anion Gap 13 BUN 36 H Creatinine 1.48 H Estim Creat Clear Calc 50.7 Estimated GFR 35 POC Glucose 170 H Random Glucose 170 H Calcium 8.0 L Phosphorus 3.2 Magnesium 2.1 Total Bilirubin 0.3 AST 24 ALT 24 Alkaline Phosphatase 56 B-Natriuretic Peptide Total Protein 5.5 L Albumin 3.0 L 12/03/21 12/03/21 12/03/21 05:30 05:33 11:33 WBC RBC Hgb Hct MCV MCH MCHC RDW Plt Count MPV Immature Gran % (Auto) Neut % (Auto) Lymph % (Auto) [place] % (Auto) Eos % (Auto) Baso % (Auto) Lymph # (Auto) [place] # (Auto) Eos # (Auto) Baso # (Auto) Abs Immat Gran (auto) Absolute Neuts (auto) Absolute Nucleated RBC Nucleated RBC % (auto) VBG pH 7.47 H VBG pCO2 30 VBG pO2 33 VBG HCO3 22 VBG O2 Saturation 52.0 VBG Base Excess -0.1 Sodium Potassium Chloride Carbon Dioxide Anion Gap BUN Creatinine Estim Creat Clear Calc Estimated GFR POC Glucose 155 H Random Glucose Calcium Phosphorus Magnesium Total Bilirubin AST ALT Alkaline Phosphatase B-Natriuretic Peptide 346 H Total Protein Albumin Microbiology Microbiology Results: Microbiology 12/02/21 11:29 Blood - Venous Blood Culture - Preliminary No growth after 24 hours. 12/02/21 11:29 Blood - Venous Blood Culture - Preliminary No growth after 24 hours. 12/03/21 09:08 Bronchial Washings Gram Stain - Final 12/02/21 12:24 Urine Catheterized - Turner Catheter Urine Culture - Preliminary Gram negative asncho 12/02/21 12:24 Sputum - Suctioned Gram Stain - Final 12/02/21 12:24 Sputum - Suctioned Sputum Culture - Preliminary Gram negative sancho 11/29/21 22:30 Sputum - Suctioned Gram Stain - Final 11/29/21 22:30 Sputum - Suctioned Sputum Culture - Final Klebsiella pneumoniae 11/27/21 13:49 Thoracentesis Fluid Gram Stain - Final 11/27/21 13:49 Thoracentesis Fluid Anaerobic Culture - Final NO GROWTH AFTER 5 DAYS 11/27/21 13:49 Thoracentesis Fluid Body Fluid Culture - Final No growth after 2 days 11/29/21 22:29 Blood - Venous Blood Culture - Final Coag negative Staphylococcus 11/29/21 22:29 Blood - Venous Blood Culture - Preliminary No growth after 48 hours. 11/29/21 22:31 Urine Catheterized - Turner Catheter Urine Culture - Final No growth. 11/25/21 14:57 Blood - Venous Blood Culture - Final No growth after 5 days. 11/25/21 14:57 Blood - Venous Blood Culture - Final No growth after 5 days. 11/25/21 09:30 Pleural Fluid Direct Acid Fast Bacilli Smear - Final 11/25/21 09:30 Pleural Fluid Fungal Identification - Preliminary No growth to date. 11/25/21 09:30 Thoracentesis Fluid Gram Stain - Final 11/25/21 09:30 Thoracentesis Fluid Anaerobic Culture - Final NO GROWTH AFTER 5 DAYS 11/25/21 09:30 Thoracentesis Fluid Body Fluid Culture - Final No growth after 2 days 11/25/21 15:30 Sputum - Suctioned Gram Stain - Final 11/25/21 15:30 Sputum - Suctioned Sputum Culture - Final 11/19/21 18:42 Blood - Venous Blood Culture - Final No growth after 5 days. 11/19/21 18:37 Blood - Venous Blood Culture - Final No growth after 5 days. 11/20/21 03:44 Sputum - Suctioned Gram Stain - Final 11/20/21 03:44 Sputum - Suctioned Sputum Culture - Final 11/20/21 Unknown Urine Catheterized - Turner Catheter Urine Culture - Final No growth. Progress Note: A&P Assessment and plan (1) Lymphadenopathy, mediastinal: Status: Acute (2) Pleural effusion: Status: Acute (3) Urinary tract infection due to ESBL Klebsiella: Status: Acute (4) Respiratory failure: Status: Acute (5) Obesity: Status: Acute (6) Hypothyroidism: Status: Acute (7) HTN (hypertension): Status: Acute (8) Diabetes mellitus with insulin therapy: Status: Acute (9) Sepsis: Status: Acute (10) LEO (acute kidney injury): Status: Acute (11) Acute exacerbation of congestive heart failure: Status: Acute (12) Pneumonia: Status: Acute (13) Essential hypertension: Status: Acute (14) Acute respiratory failure with hypoxia: Status: Acute Plan Meropenem on board for ESBL Klebsiella and still remains on the ventilator but status post bronchoscopic guided lymph node biopsy and we are going to wean sedation for holiday today and see how she does on pressure support ventilation and probably will recent date and keep her ventilated overnight and continue to keep an eye on her CVP for her volume status and reinstate her feedings Quality Stroke Does the patient have a stroke diagnosis?: No VTE Prior VTE?: No VTE Risk Level:: Medical - moderate - high VTE Device Contraindication: Treatment Not Indicated VTE Drug Contraindication: N/A - Med Ordered
[2021-12-03] MEDS: Heparin Sodium,Porcine 5,000 UNIT/ML VIAL 5000 UNIT SUBCUT ×2 (15:11→22:23)
[2021-12-03 18:14] LABS: Glucose, Whole Blood 188 mg/dL (60-115)
--- NOTE | 2021-12-03 18:37 | PC.NURSE ---
PATIENT ALERT, FOLLOWING COMMANDS, NODDING APPROPRIATELY TO QUESTIONS ON MORNING ASSESSMENT. SEDATION VACATION STARTED AT 0745. PATIENT SENT FOR SCHEDULED SURGERY AT O800. PATIENT ARRIVED BACK POST PROCEDURE DROWSY FROM SEDATION. PATIENT BEGAN RETURNING TO BASELINE SHORTLY AFTER ARRIVAL. MINIMAL BLOODY INLINE SECRETIONS NOTED. PRECEDEX GTT RESTARTED FOR INCREASED RR AND DISCOMFORT PER PATIENT - SEE EMAR. PATIENT AND FAMILY UPDATED ON CURRENT HEALTH STATUS BY MD AND RN. COPIOUS THICK WHITE INLINE SECRETIONS REQUIRING FREQUENT SUCTIONING. GREY CATHETER PATENT AND DRAINING ROUGHLY 50 ML/HR MARAH URINE. PATIENT REPOSITIONED Q2HR, SCHEDULED ORAL CARE PREFORMED.
[2021-12-03] MEDS: Midazolam HCl/PF 2 MG/2 ML VIAL 1 MG IVPUSH ×2 (19:27→22:23)
[2021-12-03 20:20] LABS: Glucose, Whole Blood 178 mg/dL (60-115)
[2021-12-03] MEDS: Nystatin Powder 15 GM BOTTLE 1 APPL TOPICAL (20:20)
[2021-12-03] MEDS: Insulin Glargine,Hum.rec.anlog 100 UNIT/ML 10 ML VIAL 25 UNIT SUBCUT (20:20)
[2021-12-03] MEDS: Acetaminophen Oral Liquid 650 MG/20.3 ML SOLUTION PO (20:26)
[2021-12-04] VITALS (36 sets, daily range): BP systolic 98–151; BP diastolic 29–62; PULSE 54–105; RESP 15–30; TEMP 34.5–38.6; O2SAT 94–100; BMI 53.1
[2021-12-04 00:30] LABS: Glucose, Whole Blood 177 mg/dL (60-115)
[2021-12-04] MEDS: Insulin Lispro 100 UNIT/ML 3 ML VIAL SUBCUT ×3 (00:50→18:03)
[2021-12-04] MEDS: Midazolam HCl/PF 2 MG/2 ML VIAL IVPUSH ×2 (01:04→11:40)
[2021-12-04] MEDS: dexmedeTOMIDidine HCL/NS 400 MCG/100 ML INFUS..BTL 10.35 MCG IVCONT (03:10)
[2021-12-04 05:32] LABS: Glucose, Whole Blood 181 mg/dL (60-115)
[2021-12-04 05:33] LABS: MANUAL DIFF FLAG NO
[2021-12-04 05:34] LABS: VBG Base Excess -2.9 mmol/L; VBG HCO3 18 mmol/L (22-26); VBG pCO2 23 mmHg; VBG pO2 85 mmHg
[2021-12-04 05:38] LABS: Basophils Absolute Auto 0.1 X10*3/uL (0.0-0.2); Basophils Percent Auto 0.3 % (0-2); Eosinophils Absolute Auto 0.8 X10*3/uL (0.0-0.4); Eosinophils Percent Auto 4.5 % (0-4); Hematocrit 30.2 % (37.0-47.0); Hemoglobin 9.6 g/dl (12.0-16.0); Imm Gran Abs Auto 0.25 X10*3/uL (0.00-0.03); Imm Gran Pct Auto 1.4 % (0.0-0.4); Lymphocytes Absolute Auto 1.1 X10*3/uL (1.2-4.9); Lymphocytes Percent Auto 6.1 % (20-40); Mean Corpuscular HGB Conc 31.8 g/dl (31.0-35.0); Mean Corpuscular Hemoglobin 26.5 pg (27.0-33.0); Mean Corpuscular Volume 83.4 fL (80.0-98.0); Mean Platelet Volume 12.8 fL (9.4-12.3); Monocytes Absolute Auto 0.8 X10*3/uL (0.1-1.2); Monocytes Percent Auto 4.2 % (2-11); Neutrophils Absolute Auto 15.2 x10*3/uL (2.0-8.3); Neutrophils Percent Auto 83.5 % (45-73); Platelet Count 246 X10*3/uL (160-400); Red Blood Count 3.62 X10*6/uL (4.20-5.50); Red Cell Distribution Width 19.7 % (11.0-16.0); White Blood Count 18.1 X10*3/uL (4.8-10.8)
[2021-12-04 05:55] LABS: Venous Blood Gas Refer to POC result
[2021-12-04 05:58] LABS: Albumin Level 2.9 g/dL (3.5-5.0)
[2021-12-04 06:05] LABS: B Type Natriuretic Peptide 595 pg/mL (<100)
[2021-12-04 06:07] LABS: Alanine Aminotransferase 24 U/L (0-31); Albumin Level 2.8 g/dL (3.5-5.0); Alkaline Phosphatase 59 U/L (39-117); Anion Gap 17 (12-20); Aspartate Amino Transferase 21 U/L (5-31); Bilirubin Total 0.4 mg/dL (0.0-1.0); Blood Urea Nitrogen 35 mg/dL (9-16); Calcium 7.8 mg/dL (8.4-10.2); Carbon Dioxide 19 mmol/L (22-29); Chloride 108 mmol/L (96-108); Creatinine Clr Calc Pharmacy 50.7; Estimated Glomerular Filt Rate 34; Glucose Random 184 mg/dL (60-115); Magnesium 2.1 mg/dL (1.6-2.6); Phosphorus 3.2 mg/dL (2.7-4.5); Potassium 3.6 mmol/L (3.3-5.1); Sodium 140 mmol/L (135-145); Total Protein 5.4 g/dL (6.5-8.0)
[2021-12-04] MEDS: Chlorhexidine Gluc Oral Rinse 15 ML MOUTHWASH BUCCAL ×3 (07:20→20:17)
[2021-12-04] MEDS: Spironolactone 25 MG TABLET PO (07:20)
[2021-12-04] MEDS: levoFLOXacin/D5W 500 MG/100 ML PIGGYBACK 100 MG IV (07:21)
[2021-12-04] MEDS: Nystatin Powder 15 GM BOTTLE 1 APPL TOPICAL ×2 (07:28→20:18)
[2021-12-04] MEDS: Heparin Sodium,Porcine 5,000 UNIT/ML VIAL 5000 UNIT SUBCUT ×3 (07:30→22:17)
--- NOTE | 2021-12-04 08:46 | HO.POSTANES ---
Post Anesthesia Evaluation Post Anesthesia Evaluation Vital Signs: Vital Signs Temp Pulse Resp BP Pulse Ox O2 Del Method FiO2 12/04/21 07:58 12/04/21 08:00 56 98/47 L 12/04/21 08:00 12/04/21 07:33 94 Mechanical Ventilation 12/04/21 08:00 100.4 F 56 25 H 98/29 L 95 Mechanical Ventilation 12/04/21 07:00 57 15 118/36 L 95 Mechanical Ventilation 12/04/21 05:34 12/04/21 00:06 12/04/21 06:00 100.4 F 56 15 115/37 L 96 Mechanical Ventilation 12/04/21 05:00 100.6 F H 61 15 131/41 L 95 Mechanical Ventilation 12/04/21 04:00 100.6 F H 54 15 111/35 L 95 Mechanical Ventilation 12/04/21 03:00 100.6 F H 57 15 128/42 L 95 Mechanical Ventilation 12/04/21 02:00 100.6 F H 60 15 133/41 L 95 Mechanical Ventilation 12/04/21 01:00 100.8 F H 55 15 103/33 L 95 Mechanical Ventilation 12/04/21 00:00 100.9 F H 58 15 109/35 L 95 Mechanical Ventilation 12/03/21 23:00 101.1 F H 62 62 H 111/38 L 94 Mechanical Ventilation 12/04/21 04:00 12/04/21 00:00 12/03/21 21:00 101.7 F H 74 15 124/48 L 95 Mechanical Ventilation 12/03/21 22:00 101.5 F H 72 16 126/38 L 94 Mechanical Ventilation 25 Anesthesia: General Endotracheal-GETA Mental Status: Awake Pain Control: Satisfactory Nausea/Vomiting: None Hydration: Adequate Anesthesia-Related Issues: No Anes. Related Issues
[2021-12-04 09:40] LABS: Glucose, Whole Blood 153 mg/dL (60-115)
[2021-12-04] MEDS: Hydrocortisone Sod Succ/PF 100 MG VIAL IVPUSH ×3 (09:55→20:17)
--- NOTE | 2021-12-04 10:22 | MHC.CLN ---
F/U PT REMAINS INTUBATED DISCUSSED WITH TEAM AT [facility]OUNDS PLAN IS TO WEAN TODAY PT TOLERATING NEPRO AT RATE OF 15 ML/HR WITH 240ML FREE WATER FLUSHES Q 4HRS PROVIDES 648 KCALS, 29G PROTEIN, 981 ML TOTAL WATER FROM FORMULA AND FLUSHES TF TO BE HELD WITH PLAN TO WEAN FOLLOWING FOR POTENTIAL DIET ADVANCEMENT
[2021-12-04] MEDS: Albuterol/Iprat 2.5/0.5MG 3 ML AMPUL.NEB INHALE ×3 (11:35→20:04)
[2021-12-04 12:09] LABS: Glucose, Whole Blood 191 mg/dL (60-115)
--- NOTE | 2021-12-04 12:58 | P.PNCC_ITS ---
Subjective Subjective Date of Service: 12/04/21 Interval History: 71-year-old morbidly obese female a type 2 diabetic and hypertensive as well presented with acute hypoxemic respiratory failure requiring intubation at this point now 2 weeks just underwent lymph node biopsy via [facility] [place] 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 and the initial source of respiratory failure was deemed to have been in increased intrathoracic volume but we do not know if this is because of lymphatic invasion or whether not this was cardiovascular in origin but she also has chronic stage II renal failure and she was diuresed and with reduction of CVP it seems work of breathing improved and today we once again tried a pressure support trial but towards the 2-1/2 hour alcira tidal volume started to diminish into the lower 300s and respiratory rate up to 29 so apparently she was beginning to fatigue not in any distress and she has been a she had a low-grade temperature today still of about 100 as her temperature maximum and she is growing an ESBL Klebsiella from sputum and it is responsive to the meropenem as well as well as to Levaquin and at this point we will simply recent date not plan to extubate today and retry again in the morning as we await the return of the flow cytometry from the lymph node biopsy Critical Care Time (minutes): 35 Physical Exam Vital Signs: Vital Signs: Last Vital Signs Temp 100.2 F 12/04/21 12:00 Pulse 101 H 12/04/21 12:00 Resp 21 H 12/04/21 12:00 BP 130/47 L 12/04/21 12:00 Pulse Ox 97 12/04/21 12:00 O2 Del Method 12/04/21 12:00 FiO2 25 12/04/21 12:00 BMI result Body Mass Index 53.1 Awake and and appropriate and nonfocal neurologically Skin is diffusely edematous no cellulitis no breakdown Abdomen obese but nontender with good bowel sounds no organomegaly Lungs with diminished breath sounds bilaterally no adventitious sounds and she has a upper limit normal airway resistance Cardiac exam with normal LV and RV function by bedside echo Objective Data Labs CBC & Chem 7: 12/04/21 05:27 12/04/21 05:27 Labs: Laboratory Results - last 24 hr 12/03/21 12/03/21 12/04/21 18:08 20:17 00:25 WBC RBC Hgb Hct MCV MCH MCHC RDW Plt Count MPV Immature Gran % (Auto) Neut % (Auto) Lymph % (Auto) [place] % (Auto) Eos % (Auto) Baso % (Auto) Lymph # (Auto) [place] # (Auto) Eos # (Auto) Baso # (Auto) Abs Immat Gran (auto) Absolute Neuts (auto) Absolute Nucleated RBC Nucleated RBC % (auto) VBG pH VBG pCO2 VBG pO2 VBG HCO3 VBG O2 Saturation VBG Base Excess Sodium Potassium Chloride Carbon Dioxide Anion Gap BUN Creatinine Estim Creat Clear Calc Estimated GFR POC Glucose 188 H 178 H 177 H Random Glucose Calcium Phosphorus Magnesium Total Bilirubin AST ALT Alkaline Phosphatase B-Natriuretic Peptide Total Protein Albumin 12/04/21 12/04/21 12/04/21 05:27 05:27 05:27 WBC 18.1 H RBC 3.62 L Hgb 9.6 L Hct 30.2 L MCV 83.4 MCH 26.5 L MCHC 31.8 RDW 19.7 H Plt Count 246 MPV 12.8 H Immature Gran % (Auto) 1.4 H Neut % (Auto) 83.5 H Lymph % (Auto) 6.1 L [place] % (Auto) 4.2 Eos % (Auto) 4.5 H Baso % (Auto) 0.3 Lymph # (Auto) 1.1 L [place] # (Auto) 0.8 Eos # (Auto) 0.8 H Baso # (Auto) 0.1 Abs Immat Gran (auto) 0.25 H Absolute Neuts (auto) 15.2 H Absolute Nucleated RBC 0.000 Nucleated RBC % (auto) 0.0 VBG pH VBG pCO2 VBG pO2 VBG HCO3 VBG O2 Saturation VBG Base Excess Sodium 140 Potassium 3.6 Chloride 108 Carbon Dioxide 19 L Anion Gap 17 BUN 35 H Creatinine 1.50 H Estim Creat Clear Calc 50.7 Estimated GFR 34 POC Glucose Random Glucose 184 H Calcium 7.8 L Phosphorus 3.2 Magnesium 2.1 Total Bilirubin 0.4 AST 21 ALT 24 Alkaline Phosphatase 59 B-Natriuretic Peptide 595 H Total Protein 5.4 L Albumin 2.8 L 12/04/21 12/04/21 12/04/21 05:27 05:27 05:27 WBC RBC Hgb Hct MCV MCH MCHC RDW Plt Count MPV Immature Gran % (Auto) Neut % (Auto) Lymph % (Auto) [place] % (Auto) Eos % (Auto) Baso % (Auto) Lymph # (Auto) [place] # (Auto) Eos # (Auto) Baso # (Auto) Abs Immat Gran (auto) Absolute Neuts (auto) Absolute Nucleated RBC Nucleated RBC % (auto) VBG pH 7.50 H VBG pCO2 23 VBG pO2 85 VBG HCO3 18 L VBG O2 Saturation 97.0 VBG Base Excess -2.9 Sodium Potassium Chloride Carbon Dioxide Anion Gap BUN Creatinine Estim Creat Clear Calc Estimated GFR POC Glucose 181 H Random Glucose Calcium Phosphorus Magnesium Total Bilirubin AST ALT Alkaline Phosphatase B-Natriuretic Peptide Total Protein Albumin 2.9 L 12/04/21 12/04/21 09:37 12:02 WBC RBC Hgb Hct MCV MCH MCHC RDW Plt Count MPV Immature Gran % (Auto) Neut % (Auto) Lymph % (Auto) [place] % (Auto) Eos % (Auto) Baso % (Auto) Lymph # (Auto) [place] # (Auto) Eos # (Auto) Baso # (Auto) Abs Immat Gran (auto) Absolute Neuts (auto) Absolute Nucleated RBC Nucleated RBC % (auto) VBG pH VBG pCO2 VBG pO2 VBG HCO3 VBG O2 Saturation VBG Base Excess Sodium Potassium Chloride Carbon Dioxide Anion Gap BUN Creatinine Estim Creat Clear Calc Estimated GFR POC Glucose 153 H 191 H Random Glucose Calcium Phosphorus Magnesium Total Bilirubin AST ALT Alkaline Phosphatase B-Natriuretic Peptide Total Protein Albumin Microbiology Microbiology Results: Microbiology 12/03/21 09:08 Bronchial Washings Gram Stain - Final 12/03/21 09:08 Bronchial Washings - Preliminary Gram negative sancho 12/02/21 12:24 Urine Catheterized - Turner Catheter Urine Culture - Final Klebsiella pneumoniae 12/02/21 12:24 Sputum - Suctioned Gram Stain - Final 12/02/21 12:24 Sputum - Suctioned Sputum Culture - Final Klebsiella pneumoniae 12/02/21 11:29 Blood - Venous Blood Culture - Preliminary No growth after 24 hours. 12/02/21 11:29 Blood - Venous Blood Culture - Preliminary No growth after 24 hours. 11/29/21 22:30 Sputum - Suctioned Gram Stain - Final 11/29/21 22:30 Sputum - Suctioned Sputum Culture - Final Klebsiella pneumoniae 11/27/21 13:49 Thoracentesis Fluid Gram Stain - Final 11/27/21 13:49 Thoracentesis Fluid Anaerobic Culture - Final NO GROWTH AFTER 5 DAYS 11/27/21 13:49 Thoracentesis Fluid Body Fluid Culture - Final No growth after 2 days 11/29/21 22:29 Blood - Venous Blood Culture - Final Coag negative Staphylococcus 11/29/21 22:29 Blood - Venous Blood Culture - Preliminary No growth after 48 hours. 11/29/21 22:31 Urine Catheterized - Turner Catheter Urine Culture - Final No growth. 11/25/21 14:57 Blood - Venous Blood Culture - Final No growth after 5 days. 11/25/21 14:57 Blood - Venous Blood Culture - Final No growth after 5 days. 11/25/21 09:30 Pleural Fluid Direct Acid Fast Bacilli Smear - Final 11/25/21 09:30 Pleural Fluid Fungal Identification - Preliminary No growth to date. 11/25/21 09:30 Thoracentesis Fluid Gram Stain - Final 11/25/21 09:30 Thoracentesis Fluid Anaerobic Culture - Final NO GROWTH AFTER 5 DAYS 11/25/21 09:30 Thoracentesis Fluid Body Fluid Culture - Final No growth after 2 days 11/25/21 15:30 Sputum - Suctioned Gram Stain - Final 11/25/21 15:30 Sputum - Suctioned Sputum Culture - Final 11/19/21 18:42 Blood - Venous Blood Culture - Final No growth after 5 days. 11/19/21 18:37 Blood - Venous Blood Culture - Final No growth after 5 days. 11/20/21 03:44 Sputum - Suctioned Gram Stain - Final 11/20/21 03:44 Sputum - Suctioned Sputum Culture - Final 11/20/21 Unknown Urine Catheterized - Turner Catheter Urine Culture - Final No growth. Progress Note: A&P Assessment and plan (1) Urinary tract infection due to ESBL Klebsiella: Status: Acute (2) Lymphadenopathy, mediastinal: Status: Acute (3) Pleural effusion: Status: Acute (4) Respiratory failure: Status: Acute (5) Obesity: Status: Acute (6) Hypothyroidism: Status: Acute (7) HTN (hypertension): Status: Acute (8) Diabetes mellitus with insulin therapy: Status: Acute (9) Sepsis: Status: Acute (10) LEO (acute kidney injury): Status: Acute (11) Acute exacerbation of congestive heart failure: Status: Acute (12) Pneumonia: Status: Acute (13) Essential hypertension: Status: Acute (14) Acute respiratory failure with hypoxia: Status: Acute Plan Plan is to continue with the meropenem and re-attempt another sedation holiday as well as pressure support weaning trial and then await the final pathology as well as flow cytometry and mainly for airway issues I started her on hydro cortisone as well as DuoNeb Quality Stroke Does the patient have a stroke diagnosis?: No VTE Prior VTE?: No VTE Risk Level:: Medical - moderate - high VTE Device Contraindication: Treatment Not Indicated VTE Drug Contraindication: N/A - Med Ordered
--- NOTE | 2021-12-04 13:57 | W.PM.IDCN ---
History of Present Illness Data of Consult Service Date: 12/04/21 Requesting physician: Lisa Tesfaye Primary Care Provider: Tam Corea MD HPI Reason for consult: ESBL Klebsiella in bronch washings She presents to ER on 11/19 with shortness of breath and hypoxia to 69%. She was intubated and transferred to ICU. She has since had basilar infiltrate and bronchoscopy. Klebsiella pneumonia ESBL present sensitive to Ertapenem and Levaquin. She has some improvement today and extubation being considered. Review of Systems Review of Systems: Yes unobtainable due to endotracheal tube PMFSH Past Medical History Medical History (Updated 12/04/21 @ 14:02 by Melody Chawla MD) CKD (chronic kidney disease) Congestive heart failure COVID Diabetes mellitus with insulin therapy HLD (hyperlipidemia) HTN (hypertension) Hypothyroidism Infection with ESBL Klebsiella oxytoca Lower extremity edema Lymphadenopathy, mediastinal Migraine Obesity Pleural effusion Pseudotumor cerebri PVD (peripheral vascular disease) Family History Family History Mother Heart attack, Onset Age: 92 Father Heart attack, Onset Age: 66 Other Diabetes Family history: reviewed and not pertinent Surgical History Surgical History H/O cataract extraction H/O hysterectomy for benign disease Hx of cholecystectomy S/P appendectomy Social History Social History Alcohol intake: never Patient Tobacco Use Status: Never used Tobacco Advance Directives Date on File: 09/26/20 service: No Current occupational status: disabled Meds Allergies Allergy/AdvReac Type Severity Reaction Status Date / Time oxycodone [From Percocet] Allergy Intermediate Rash Verified 11/19/21 17:16 Active Medications: Current Medications Acetaminophen (Acetaminophen Oral Liquid 650 Mg/20.3 Ml Solution) 650 mg PO Q6H PRN PRN Reason: Fever >101 Last Admin: 12/03/21 20:26 Dose: 650 mg Albuterol/Ipratropium (Albuterol/Iprat 2.5/0.5mg 3 Ml Ampul.Neb) 3 ml INHALE RQ4H WHILE AWAKE ALAN Last Admin: 12/04/21 11:35 Dose: 3 ml Chlorhexidine Gluconate (Chlorhexidine Gluc Oral Rinse 15 Ml Mouthwash) 15 ml BUCCAL TID [facility] Last Admin: 12/04/21 07:20 Dose: 15 ml Dextrose (Dextrose 50 % 25 Gm/50 Ml Syringe) 25 gm IVPUSH Q15M PRN; Protocol PRN Reason: per Hypoglycemia Standing Ord. Last Admin: 12/01/21 19:53 Dose: 25 gm Heparin Sodium (Porcine) (Heparin Sodium,Porcine 5,000 Unit/Ml Vial) 5,000 unit SUBCUT Q8H [facility] Last Admin: 12/04/21 07:30 Dose: 5,000 unit Hydrocortisone Sodium Succinate (Hydrocortisone Sod Succ/Pf 100 Mg Vial) 100 mg IVPUSH Q6H [facility] Last Admin: 12/04/21 09:55 Dose: 100 mg Dexmedetomidine HCl (Precedex) 400 mcg in 100 mls @ 0 mls/hr IVCONT .Q0M [facility]; Protocol Last Titration: 12/04/21 11:24 Dose: 0.1 mcg/kg/hr, 3.45 mls/hr Meropenem 1 gm/ Sodium (Chloride) 100 mls @ 200 mls/hr IV Q8H [facility] Last Infusion: 12/04/21 11:18 Dose: Infused Insulin Glargine (Insulin Glargine,Hum.Rec.Anlog 100 Unit/Ml 10 Ml Vial) 25 unit SUBCUT BID [facility] Last Admin: 12/04/21 09:43 Dose: Not Given Insulin Human Lispro (Insulin Lispro 100 Unit/Ml 3 Ml Vial) 0 unit SUBCUT Q6H [facility]; Protocol Last Admin: 12/04/21 13:26 Dose: Not Given Nystatin (Nystatin Powder 15 Gm Bottle) 1 appl TOPICAL BID [facility]; Protocol Last Admin: 12/04/21 07:28 Dose: 1 appl Omeprazole (Omeprazole 20 Mg/10 Ml Susp.Recon) 40 mg OG-TUBE DAILY@0630 [facility] Last Admin: 12/04/21 05:27 Dose: 40 mg Spironolactone (Spironolactone 25 Mg Tablet) 25 mg PO DAILY [facility]; Protocol Last Admin: 12/04/21 07:20 Dose: 25 mg Home Medications Medication Instructions Recorded Confirmed Last Taken Type amitriptyline 50 mg tablet 25 mg PO DAILY 10/08/21 11/20/21 Unknown History aspirin 325 mg tablet 325 mg PO DAILY 10/08/21 11/20/21 Unknown History brinzolamide 1 %-brimonidine 0.2 % 1 drp ophthalmic-Right BID 10/08/21 11/20/21 Unknown History eye drops,suspension (Simbrinza) chlordiazepoxide HCl 10 mg capsule 10 mg PO BEDTIME 10/08/21 11/20/21 Unknown History citalopram 20 mg tablet 20 mg PO DAILY 10/08/21 11/20/21 Unknown History clonazepam 0.5 mg tablet 0.5 mg PO BID 10/08/21 11/20/21 Unknown History docusate sodium 100 mg tablet 100 mg PO DAILY 10/08/21 11/20/21 Unknown History furosemide 40 mg tablet 40 tab PO BID@0900,1800 10/08/21 11/20/21 Unknown History hydroxychloroquine 200 mg tablet 200 mg PO BID 10/08/21 11/20/21 Unknown History insulin glargine 100 unit/mL (3 80 unit subcut BEDTIME 10/08/21 11/20/21 Unknown History mL) subcutaneous pen (Lantus Solostar U-100 Insulin) insulin lispro protamine-lispro 7 - 15 ea subcut TIDAC 10/08/21 11/20/21 Unknown History 100 unit/mL (75-25) subcutaneous pen levothyroxine 175 mcg tablet 175 mcg PO DAILY@0600 10/08/21 11/20/21 Unknown History multivitamin 1 tab PO DAILY 10/08/21 11/20/21 Unknown History netarsudil 0.02 %-latanoprost 1 drp ophthalmic (eye) BEDTIME 10/08/21 11/20/21 Unknown History 0.005 % eye drops (Rocklatan) simvastatin 20 mg tablet 20 mg PO BEDTIME 10/08/21 11/20/21 Unknown History sitagliptin 100 mg tablet (Januvia) 100 mg PO DAILY 10/08/21 11/20/21 Unknown History latanoprost 0.005 % eye drops 1 drp ophthalmic (eye) BEDTIME 11/20/21 11/20/21 Unknown History Physical Exam Vital Signs: Vital Signs: Last Vital Signs Temp 100.2 F 12/04/21 12:00 Pulse 97 12/04/21 13:00 Resp 18 12/04/21 13:00 BP 130/48 L 12/04/21 13:00 Pulse Ox 95 12/04/21 13:00 O2 Del Method 12/04/21 13:00 FiO2 25 12/04/21 13:00 BMI result Body Mass Index 53.1 Const: General: cooperative HEENT: Head: Yes normal to inspection Face and sinus: Yes normal facial exam Mouth: Normal oral and palatal mucosa present Teeth and gingiva: dentition normal Eyes: General: appearance normal, both eyes and all related structures Pupils: Equal, round and reactive pupils present Resp: Other: decreased breath sounds bases,intubated Cardio: Rate: regular rate Rhythm: regular rhythm GI: Palpation (GI): Soft to palpation and nontender : General: Yes no CVA tenderness Back/Spine/Pelvis: Back: no CVA tenderness Skin: General skin exam: no rashes or lesions noted Neuro: General: moves all extremities Cranial nerves: Yes Equal, round and reactive pupils present Extrem: General: Yes normal to inspection Psych: Appearance: grossly normal Results Labs CBC & Chem 7: 12/04/21 05:27 12/04/21 05:27 Labs: Short CBC 12/04/21 Range/Units 05:27 WBC 18.1 H (4.8-10.8) X10*3/uL Hgb 9.6 L (12.0-16.0) g/dl Hct 30.2 L (37.0-47.0) % Plt Count 246 (160-400) X10*3/uL BMP 12/04/21 05:27 Sodium 140 Potassium 3.6 Chloride 108 Carbon Dioxide 19 L BUN 35 H Creatinine 1.50 H Calcium 7.8 L Liver Function 12/04/21 12/04/21 Range/Units 05:27 05:27 Total Bilirubin 0.4 (0.0-1.0) mg/dL AST 21 (5-31) U/L ALT 24 (0-31) U/L Alkaline Phosphatase 59 (39-117) U/L Albumin 2.8 L 2.9 L (3.5-5.0) g/dL Microbiology Microbiology Results: Microbiology 12/02/21 11:29 Blood - Venous Blood Culture - Preliminary No growth after 48 hours. 12/02/21 11:29 Blood - Venous Blood Culture - Preliminary No growth after 48 hours. 12/03/21 09:08 Bronchial Washings Gram Stain - Final 12/03/21 09:08 Bronchial Washings - Preliminary Gram negative sancho 12/02/21 12:24 Urine Catheterized - Turner Catheter Urine Culture - Final Klebsiella pneumoniae 12/02/21 12:24 Sputum - Suctioned Gram Stain - Final 12/02/21 12:24 Sputum - Suctioned Sputum Culture - Final Klebsiella pneumoniae 11/29/21 22:30 Sputum - Suctioned Gram Stain - Final 11/29/21 22:30 Sputum - Suctioned Sputum Culture - Final Klebsiella pneumoniae 11/27/21 13:49 Thoracentesis Fluid Gram Stain - Final 11/27/21 13:49 Thoracentesis Fluid Anaerobic Culture - Final NO GROWTH AFTER 5 DAYS 11/27/21 13:49 Thoracentesis Fluid Body Fluid Culture - Final No growth after 2 days 11/29/21 22:29 Blood - Venous Blood Culture - Final Coag negative Staphylococcus 11/29/21 22:29 Blood - Venous Blood Culture - Preliminary No growth after 48 hours. 11/29/21 22:31 Urine Catheterized - Turner Catheter Urine Culture - Final No growth. 11/25/21 14:57 Blood - Venous Blood Culture - Final No growth after 5 days. 11/25/21 14:57 Blood - Venous Blood Culture - Final No growth after 5 days. 11/25/21 09:30 Pleural Fluid Direct Acid Fast Bacilli Smear - Final 11/25/21 09:30 Pleural Fluid Fungal Identification - Preliminary No growth to date. 11/25/21 09:30 Thoracentesis Fluid Gram Stain - Final 11/25/21 09:30 Thoracentesis Fluid Anaerobic Culture - Final NO GROWTH AFTER 5 DAYS 11/25/21 09:30 Thoracentesis Fluid Body Fluid Culture - Final No growth after 2 days 11/25/21 15:30 Sputum - Suctioned Gram Stain - Final 11/25/21 15:30 Sputum - Suctioned Sputum Culture - Final 11/19/21 18:42 Blood - Venous Blood Culture - Final No growth after 5 days. 11/19/21 18:37 Blood - Venous Blood Culture - Final No growth after 5 days. 11/20/21 03:44 Sputum - Suctioned Gram Stain - Final 11/20/21 03:44 Sputum - Suctioned Sputum Culture - Final 11/20/21 Unknown Urine Catheterized - Turner Catheter Urine Culture - Final No growth. Assessment and Plan (1) Pleural effusion: Status: Acute (2) Respiratory failure: Qualifiers: Chronicity: acute Respiratory failure complication: hypoxia Qualified Code(s): J96.01 - Acute respiratory failure with hypoxia Status: Acute (3) Infection with ESBL Klebsiella oxytoca: Status: Acute Patient has ESBL in past in urine. She has ESBL in sputum She likely colonization as she is having improvement in respiratory parameters despite not being on Merem or Levaquin Plan May continue Merem in ICU for now Would give po Levaquin for 14 day total antibiotics to cover this when extubated.
--- NOTE | 2021-12-04 15:45 | PM.PNNEP ---
Subjective Subjective Date of Service: 12/04/21 Interval history: Events noted. All recent data reviewed Physical Exam Vital Signs: Vital Signs: Last Vital Signs Temp 100.6 F H 12/04/21 15:00 Pulse 100 12/04/21 15:30 Resp 23 H 12/04/21 15:30 BP 151/56 H 12/04/21 15:00 Pulse Ox 94 12/04/21 15:00 O2 Del Method 12/04/21 15:00 FiO2 25 12/04/21 15:30 BMI result Body Mass Index 53.1 Const: Other: Intubated Resp: Auscultation: diminished lung sounds Cardio: Rate: regular rate GI: Palpation (GI): Soft to palpation Skin: General skin exam: no rashes or lesions noted Neuro: Other: Sedated Objective Data Labs CBC & Chem 7: 12/04/21 05:27 12/04/21 05:27 Labs: Laboratory Results - last 24 hr 12/03/21 12/03/21 12/04/21 18:08 20:17 00:25 WBC RBC Hgb Hct MCV MCH MCHC RDW Plt Count MPV Immature Gran % (Auto) Neut % (Auto) Lymph % (Auto) [place] % (Auto) Eos % (Auto) Baso % (Auto) Lymph # (Auto) [place] # (Auto) Eos # (Auto) Baso # (Auto) Abs Immat Gran (auto) Absolute Neuts (auto) Absolute Nucleated RBC Nucleated RBC % (auto) VBG pH VBG pCO2 VBG pO2 VBG HCO3 VBG O2 Saturation VBG Base Excess Sodium Potassium Chloride Carbon Dioxide Anion Gap BUN Creatinine Estim Creat Clear Calc Estimated GFR POC Glucose 188 H 178 H 177 H Random Glucose Calcium Phosphorus Magnesium Total Bilirubin AST ALT Alkaline Phosphatase B-Natriuretic Peptide Total Protein Albumin 12/04/21 12/04/21 12/04/21 05:27 05:27 05:27 WBC 18.1 H RBC 3.62 L Hgb 9.6 L Hct 30.2 L MCV 83.4 MCH 26.5 L MCHC 31.8 RDW 19.7 H Plt Count 246 MPV 12.8 H Immature Gran % (Auto) 1.4 H Neut % (Auto) 83.5 H Lymph % (Auto) 6.1 L [place] % (Auto) 4.2 Eos % (Auto) 4.5 H Baso % (Auto) 0.3 Lymph # (Auto) 1.1 L [place] # (Auto) 0.8 Eos # (Auto) 0.8 H Baso # (Auto) 0.1 Abs Immat Gran (auto) 0.25 H Absolute Neuts (auto) 15.2 H Absolute Nucleated RBC 0.000 Nucleated RBC % (auto) 0.0 VBG pH VBG pCO2 VBG pO2 VBG HCO3 VBG O2 Saturation VBG Base Excess Sodium 140 Potassium 3.6 Chloride 108 Carbon Dioxide 19 L Anion Gap 17 BUN 35 H Creatinine 1.50 H Estim Creat Clear Calc 50.7 Estimated GFR 34 POC Glucose Random Glucose 184 H Calcium 7.8 L Phosphorus 3.2 Magnesium 2.1 Total Bilirubin 0.4 AST 21 ALT 24 Alkaline Phosphatase 59 B-Natriuretic Peptide 595 H Total Protein 5.4 L Albumin 2.8 L 12/04/21 12/04/21 12/04/21 05:27 05:27 05:27 WBC RBC Hgb Hct MCV MCH MCHC RDW Plt Count MPV Immature Gran % (Auto) Neut % (Auto) Lymph % (Auto) [place] % (Auto) Eos % (Auto) Baso % (Auto) Lymph # (Auto) [place] # (Auto) Eos # (Auto) Baso # (Auto) Abs Immat Gran (auto) Absolute Neuts (auto) Absolute Nucleated RBC Nucleated RBC % (auto) VBG pH 7.50 H VBG pCO2 23 VBG pO2 85 VBG HCO3 18 L VBG O2 Saturation 97.0 VBG Base Excess -2.9 Sodium Potassium Chloride Carbon Dioxide Anion Gap BUN Creatinine Estim Creat Clear Calc Estimated GFR POC Glucose 181 H Random Glucose Calcium Phosphorus Magnesium Total Bilirubin AST ALT Alkaline Phosphatase B-Natriuretic Peptide Total Protein Albumin 2.9 L 12/04/21 12/04/21 09:37 12:02 WBC RBC Hgb Hct MCV MCH MCHC RDW Plt Count MPV Immature Gran % (Auto) Neut % (Auto) Lymph % (Auto) [place] % (Auto) Eos % (Auto) Baso % (Auto) Lymph # (Auto) [place] # (Auto) Eos # (Auto) Baso # (Auto) Abs Immat Gran (auto) Absolute Neuts (auto) Absolute Nucleated RBC Nucleated RBC % (auto) VBG pH VBG pCO2 VBG pO2 VBG HCO3 VBG O2 Saturation VBG Base Excess Sodium Potassium Chloride Carbon Dioxide Anion Gap BUN Creatinine Estim Creat Clear Calc Estimated GFR POC Glucose 153 H 191 H Random Glucose Calcium Phosphorus Magnesium Total Bilirubin AST ALT Alkaline Phosphatase B-Natriuretic Peptide Total Protein Albumin Microbiology Microbiology Results: Microbiology 12/02/21 11:29 Blood - Venous Blood Culture - Preliminary No growth after 48 hours. 12/02/21 11:29 Blood - Venous Blood Culture - Preliminary No growth after 48 hours. 12/03/21 09:08 Bronchial Washings Gram Stain - Final 12/03/21 09:08 Bronchial Washings - Preliminary Gram negative sancho 12/02/21 12:24 Urine Catheterized - Turner Catheter Urine Culture - Final Klebsiella pneumoniae 12/02/21 12:24 Sputum - Suctioned Gram Stain - Final 12/02/21 12:24 Sputum - Suctioned Sputum Culture - Final Klebsiella pneumoniae 11/29/21 22:30 Sputum - Suctioned Gram Stain - Final 11/29/21 22:30 Sputum - Suctioned Sputum Culture - Final Klebsiella pneumoniae 11/27/21 13:49 Thoracentesis Fluid Gram Stain - Final 11/27/21 13:49 Thoracentesis Fluid Anaerobic Culture - Final NO GROWTH AFTER 5 DAYS 11/27/21 13:49 Thoracentesis Fluid Body Fluid Culture - Final No growth after 2 days 11/29/21 22:29 Blood - Venous Blood Culture - Final Coag negative Staphylococcus 11/29/21 22:29 Blood - Venous Blood Culture - Preliminary No growth after 48 hours. 11/29/21 22:31 Urine Catheterized - Turner Catheter Urine Culture - Final No growth. 11/25/21 14:57 Blood - Venous Blood Culture - Final No growth after 5 days. 11/25/21 14:57 Blood - Venous Blood Culture - Final No growth after 5 days. 11/25/21 09:30 Pleural Fluid Direct Acid Fast Bacilli Smear - Final 11/25/21 09:30 Pleural Fluid Fungal Identification - Preliminary No growth to date. 11/25/21 09:30 Thoracentesis Fluid Gram Stain - Final 11/25/21 09:30 Thoracentesis Fluid Anaerobic Culture - Final NO GROWTH AFTER 5 DAYS 11/25/21 09:30 Thoracentesis Fluid Body Fluid Culture - Final No growth after 2 days 11/25/21 15:30 Sputum - Suctioned Gram Stain - Final 11/25/21 15:30 Sputum - Suctioned Sputum Culture - Final 11/19/21 18:42 Blood - Venous Blood Culture - Final No growth after 5 days. 11/19/21 18:37 Blood - Venous Blood Culture - Final No growth after 5 days. 11/20/21 03:44 Sputum - Suctioned Gram Stain - Final 11/20/21 03:44 Sputum - Suctioned Sputum Culture - Final 11/20/21 Unknown Urine Catheterized - Turner Catheter Urine Culture - Final No growth. Procedures Date of Service Date of Service: 12/04/21 Assessment & Plan Assessment and plan (1) LEO (acute kidney injury): Status: Acute Assessment and Plan: Has baseline CKD 3 with serum creatinine of 1.4 to 1.7 LEO due to tubular injury- resolved Urine output good ; D/Urban diuretics Renal functions fairly stable Continue rest of current supportive care Time Spent With Patient Time: Total time spent is greater than 50% in coordination of care (as documented) at patient's floor/unit and/or counseling patient: Progress Note: Quality Stroke Does the patient have a stroke diagnosis?: No
[2021-12-04 18:00] LABS: Glucose, Whole Blood 314 mg/dL (60-115)
--- NOTE | 2021-12-04 18:12 | PC.NURSE ---
PATIENT ON NEPRO TUBE FEEDING IN AM, HELD PER MD FOR POTENTIAL EXTUBATION. PRECEDEX STOPPED AT O735. PATIENT PLACED ON PS/CPAP TRAIL. PATIENT FAILED BREATHING TRIAL ON PS/CPAP, EXTUBATION POSTPONED BY MD. 2MG VERSED IVP AND PRECEDEX DRIP PER MD TO ASSIST PATIENT IN REST AND RECOVERY. GLUCERNA TUBE FEED STARTED PER MD AT 1425. PATIENT BATHED, REPOSITIONED Q2HR, ORAL CARE SCHEDULED, MOUTH ROUTINELY SUCTIONED AND SWABBED.
[2021-12-04] MEDS: Acetaminophen Oral Liquid 650 MG/20.3 ML SOLUTION PO (20:17)
[2021-12-04] MEDS: Insulin Glargine,Hum.rec.anlog 100 UNIT/ML 10 ML VIAL 25 UNIT SUBCUT (20:17)
[2021-12-04 20:18] LABS: Glucose, Whole Blood 280 mg/dL (60-115)
[2021-12-04] MEDS: fentaNYL citrate/PF 100 MCG/2 ML VIAL 50 MCG IVPUSH (21:02)
[2021-12-04] MEDS: fentaNYL citrate/NS 1,000 MCG/100 ML PLAST..BAG 2.5 MCG IVCONT (22:14)
[2021-12-05] VITALS (32 sets, daily range): BP systolic 118–162; BP diastolic 41–71; PULSE 74–108; RESP 15–35; TEMP 34.9–38.9; O2SAT 91–100; BMI 52.0
[2021-12-05 00:13] LABS: Glucose, Whole Blood 305 mg/dL (60-115)
[2021-12-05] MEDS: Insulin Lispro 100 UNIT/ML 3 ML VIAL SUBCUT ×4 (00:19→18:01)
[2021-12-05] MEDS: Hydrocortisone Sod Succ/PF 100 MG VIAL IVPUSH ×4 (03:31→20:16)
[2021-12-05 05:28] LABS: VBG Base Excess -3.6 mmol/L; VBG HCO3 18 mmol/L (22-26); VBG pCO2 24 mmHg; VBG pH 7.48 (7.32-7.43); VBG pO2 71 mmHg
[2021-12-05 05:30] LABS: Venous Blood Gas Refer to POC result
[2021-12-05 05:37] LABS: Eosinophils Percent Auto 0.1 % (0-4); MANUAL DIFF FLAG SCAN; Monocytes Percent Auto 3.2 % (2-11); SCAN SMEAR FLAG 1
[2021-12-05 05:39] LABS: Basophils Percent Auto 0.1 % (0-2); Hematocrit 28.6 % (37.0-47.0); Hemoglobin 8.8 g/dl (12.0-16.0); Lymphocytes Absolute Auto 0.9 X10*3/uL (1.2-4.9); Lymphocytes Percent Auto 4.4 % (20-40); Mean Corpuscular HGB Conc 30.8 g/dl (31.0-35.0); Mean Corpuscular Hemoglobin 25.7 pg (27.0-33.0); Mean Corpuscular Volume 83.4 fL (80.0-98.0); Mean Platelet Volume 12.7 fL (9.4-12.3); Monocytes Absolute Auto 0.6 X10*3/uL (0.1-1.2); Neutrophils Absolute Auto 18.1 x10*3/uL (2.0-8.3); Neutrophils Percent Auto 90.2 % (45-73); PLT CLUMP 1; Red Blood Count 3.43 X10*6/uL (4.20-5.50); Red Cell Distribution Width 19.3 % (11.0-16.0)
[2021-12-05 05:43] LABS: PLT ABN DIST 1; Platelet Count 254 X10*3/uL (160-400); White Blood Count 20.1 X10*3/uL (4.8-10.8)
[2021-12-05 05:49] LABS: Glucose, Whole Blood 279 mg/dL (60-115)
[2021-12-05 05:55] LABS: Alanine Aminotransferase 23 U/L (0-31); Albumin Level 3.2 g/dL (3.5-5.0); Alkaline Phosphatase 61 U/L (39-117); Anion Gap 17 (12-20); Aspartate Amino Transferase 14 U/L (5-31); Bilirubin Total 0.4 mg/dL (0.0-1.0); Blood Urea Nitrogen 41 mg/dL (9-16); Calcium 8.1 mg/dL (8.4-10.2); Carbon Dioxide 21 mmol/L (22-29); Chloride 106 mmol/L (96-108); Creatinine Clr Calc Pharmacy 45.3; Estimated Glomerular Filt Rate 30; Glucose Random 323 mg/dL (60-115); Magnesium 2.3 mg/dL (1.6-2.6); Phosphorus 3.6 mg/dL (2.7-4.5); Potassium 4.3 mmol/L (3.3-5.1); Sodium 140 mmol/L (135-145); Total Protein 6.1 g/dL (6.5-8.0)
[2021-12-05 05:56] LABS: B Type Natriuretic Peptide 1470 pg/mL (<100); SLIDE REVIEW VERIFIED
[2021-12-05] MEDS: levoFLOXacin/D5W 250 MG/50 ML PIGGYBACK 50 MG IV (07:23)
[2021-12-05] MEDS: Heparin Sodium,Porcine 5,000 UNIT/ML VIAL 5000 UNIT SUBCUT ×3 (07:24→22:00)
[2021-12-05] MEDS: Albuterol/Iprat 2.5/0.5MG 3 ML AMPUL.NEB INHALE ×4 (07:56→18:48)
[2021-12-05] MEDS: Chlorhexidine Gluc Oral Rinse 15 ML MOUTHWASH BUCCAL ×3 (09:09→20:16)
[2021-12-05] MEDS: Insulin Glargine,Hum.rec.anlog 100 UNIT/ML 10 ML VIAL 25 UNIT SUBCUT ×2 (09:09→20:16)
[2021-12-05] MEDS: Spironolactone 25 MG TABLET PO (09:09)
[2021-12-05] MEDS: Nystatin Powder 15 GM BOTTLE 1 APPL TOPICAL ×2 (09:10→20:20)
--- NOTE | 2021-12-05 11:11 | PM.CCPN ---
Subjective Subjective Date of Service: 12/05/21 Interval History: 71-year-old morbidly obese female with acute hypoxemic respiratory failure now intubated for over 2 weeks has had fevers for quite some time as she was being diuresed for what looked like a a volume overload issue related to her respiratory failure initially diuresed but renal function that was acutely compromise had improved and we had a temporary improvement in temperature and then fever started to develop again low-grade and surveillance cultures demonstrated a ESBL Klebsiella in mentally in sputum but of but also in the bronchial washings and responsive to meropenem which she has been on but with persistent fever we added the 2nd drug it was sensitive to which was Levaquin as this as a synergistic addition and again there is question still of a B-cell malignancy and biopsies of the paratracheal lymph nodes are be are awaited including the flow cytometry which could also be the source of fever but she is alert she is on pressure support and close to being able to be extubated but but tidal volumes still marginal and we did start her because of a little bit of of an airway obstructive pattern that we noted and very minimally increased airway resistance that we measured on steroids and bronchodilator treatment and were getting a little closer she is now on 12/5 and pressure support total airway pressure of 17 Critical Care Time (minutes): 35 Physical Exam Vital Signs: Vital Signs: Last Vital Signs Temp 100.4 F 12/05/21 11:00 Pulse 93 12/05/21 11:00 Resp 24 H 12/05/21 11:00 BP 153/52 H 12/05/21 11:00 Pulse Ox 98 12/05/21 11:00 O2 Del Method 12/05/21 11:00 FiO2 25 12/05/21 11:00 Oxygen Flow Rate 25 12/05/21 07:00 BMI result Body Mass Index 52.0 She is awake and her tidal volumes are in the high 300s and we drop the may inspiratory pressure now to 12 and and her respiratory rate is in the low 20s but minute ventilatory requirements today seem to be 8.5 L as opposed to almost 11 L yesterday Abdomen is soft nontender tolerating feedings Lungs with diminished bilateral breath sounds And she demonstrates class 1 LV function on bedside echo Diffusely edematous so we are going to remove the old central line Objective Data Labs CBC & Chem 7: 12/05/21 05:20 12/05/21 05:20 Labs: Laboratory Results - last 24 hr 12/04/21 12/04/21 12/04/21 12:02 17:54 20:07 WBC RBC Hgb Hct MCV MCH MCHC RDW Plt Count MPV Immature Gran % (Auto) Neut % (Auto) Lymph % (Auto) [place] % (Auto) Eos % (Auto) Baso % (Auto) Lymph # (Auto) [place] # (Auto) Eos # (Auto) Baso # (Auto) Abs Immat Gran (auto) Absolute Neuts (auto) Absolute Nucleated RBC Nucleated RBC % (auto) Smear Tech's Comments VBG pH VBG pCO2 VBG pO2 VBG HCO3 VBG O2 Saturation VBG Base Excess Sodium Potassium Chloride Carbon Dioxide Anion Gap BUN Creatinine Estim Creat Clear Calc Estimated GFR POC Glucose 191 H 314 H 280 H Random Glucose Calcium Phosphorus Magnesium Total Bilirubin AST ALT Alkaline Phosphatase B-Natriuretic Peptide Total Protein Albumin 12/05/21 12/05/21 12/05/21 00:10 05:20 05:20 WBC 20.1 H RBC 3.43 L Hgb 8.8 L Hct 28.6 L MCV 83.4 MCH 25.7 L MCHC 30.8 L RDW 19.3 H Plt Count 254 MPV 12.7 H Immature Gran % (Auto) 2.0 H Neut % (Auto) 90.2 H Lymph % (Auto) 4.4 L [place] % (Auto) 3.2 Eos % (Auto) 0.1 Baso % (Auto) 0.1 Lymph # (Auto) 0.9 L [place] # (Auto) 0.6 Eos # (Auto) 0.0 Baso # (Auto) 0.0 Abs Immat Gran (auto) 0.40 H Absolute Neuts (auto) 18.1 H Absolute Nucleated RBC 0.000 Nucleated RBC % (auto) 0.0 Smear Tech's Comments VERIFIED VBG pH VBG pCO2 VBG pO2 VBG HCO3 VBG O2 Saturation VBG Base Excess Sodium 140 Potassium 4.3 Chloride 106 Carbon Dioxide 21 L Anion Gap 17 BUN 41 H Creatinine 1.68 H Estim Creat Clear Calc 45.3 Estimated GFR 30 POC Glucose 305 H Random Glucose 323 H Calcium 8.1 L Phosphorus 3.6 Magnesium 2.3 Total Bilirubin 0.4 AST 14 ALT 23 Alkaline Phosphatase 61 B-Natriuretic Peptide Total Protein 6.1 L Albumin 3.2 L 12/05/21 12/05/21 12/05/21 05:20 05:21 05:43 WBC RBC Hgb Hct MCV MCH MCHC RDW Plt Count MPV Immature Gran % (Auto) Neut % (Auto) Lymph % (Auto) [place] % (Auto) Eos % (Auto) Baso % (Auto) Lymph # (Auto) [place] # (Auto) Eos # (Auto) Baso # (Auto) Abs Immat Gran (auto) Absolute Neuts (auto) Absolute Nucleated RBC Nucleated RBC % (auto) Smear Tech's Comments VBG pH 7.48 H VBG pCO2 24 VBG pO2 71 VBG HCO3 18 L VBG O2 Saturation 94.0 VBG Base Excess -3.6 Sodium Potassium Chloride Carbon Dioxide Anion Gap BUN Creatinine Estim Creat Clear Calc Estimated GFR POC Glucose 279 H Random Glucose Calcium Phosphorus Magnesium Total Bilirubin AST ALT Alkaline Phosphatase B-Natriuretic Peptide 1470 H Total Protein Albumin Microbiology Microbiology Results: Microbiology 12/03/21 09:08 Bronchial Washings Gram Stain - Final 12/03/21 09:08 Bronchial Washings - Preliminary Klebsiella pneumoniae Yeast 11/29/21 22:29 Blood - Venous Blood Culture - Final No growth after 5 days. 12/02/21 11:29 Blood - Venous Blood Culture - Preliminary No growth after 48 hours. 12/02/21 11:29 Blood - Venous Blood Culture - Preliminary No growth after 48 hours. 12/02/21 12:24 Urine Catheterized - Turner Catheter Urine Culture - Final Klebsiella pneumoniae 12/02/21 12:24 Sputum - Suctioned Gram Stain - Final 12/02/21 12:24 Sputum - Suctioned Sputum Culture - Final Klebsiella pneumoniae 11/29/21 22:30 Sputum - Suctioned Gram Stain - Final 11/29/21 22:30 Sputum - Suctioned Sputum Culture - Final Klebsiella pneumoniae 11/27/21 13:49 Thoracentesis Fluid Gram Stain - Final 11/27/21 13:49 Thoracentesis Fluid Anaerobic Culture - Final NO GROWTH AFTER 5 DAYS 11/27/21 13:49 Thoracentesis Fluid Body Fluid Culture - Final No growth after 2 days 11/29/21 22:29 Blood - Venous Blood Culture - Final Coag negative Staphylococcus 11/29/21 22:31 Urine Catheterized - Turner Catheter Urine Culture - Final No growth. 11/25/21 14:57 Blood - Venous Blood Culture - Final No growth after 5 days. 11/25/21 14:57 Blood - Venous Blood Culture - Final No growth after 5 days. 11/25/21 09:30 Pleural Fluid Direct Acid Fast Bacilli Smear - Final 11/25/21 09:30 Pleural Fluid Fungal Identification - Preliminary No growth to date. 11/25/21 09:30 Thoracentesis Fluid Gram Stain - Final 11/25/21 09:30 Thoracentesis Fluid Anaerobic Culture - Final NO GROWTH AFTER 5 DAYS 11/25/21 09:30 Thoracentesis Fluid Body Fluid Culture - Final No growth after 2 days 11/25/21 15:30 Sputum - Suctioned Gram Stain - Final 11/25/21 15:30 Sputum - Suctioned Sputum Culture - Final 11/19/21 18:42 Blood - Venous Blood Culture - Final No growth after 5 days. 11/19/21 18:37 Blood - Venous Blood Culture - Final No growth after 5 days. 11/20/21 03:44 Sputum - Suctioned Gram Stain - Final 11/20/21 03:44 Sputum - Suctioned Sputum Culture - Final 11/20/21 Unknown Urine Catheterized - Turner Catheter Urine Culture - Final No growth. Progress Note: A&P Assessment and plan (1) Infection with ESBL Klebsiella oxytoca: Status: Acute (2) Urinary tract infection due to ESBL Klebsiella: Status: Acute (3) Lymphadenopathy, mediastinal: Status: Acute (4) Pleural effusion: Status: Acute (5) Respiratory failure: Status: Acute (6) Obesity: Status: Acute (7) Hypothyroidism: Status: Acute (8) HTN (hypertension): Status: Acute (9) Diabetes mellitus with insulin therapy: Status: Acute (10) Sepsis: Status: Acute (11) LEO (acute kidney injury): Status: Acute (12) Acute exacerbation of congestive heart failure: Status: Acute (13) Pneumonia: Status: Acute (14) Essential hypertension: Status: Acute (15) Acute respiratory failure with hypoxia: Status: Acute Plan So the plan is to continue with the Levaquin and the meropenem and I adjusted dose for her renal function stopping the omeprazole because of the upward creep of BUN and creatinine and removing anything that could potentially contribute to interstitial nephritis so as soon as were able will probably eliminate either the meropenem or the Levaquin and a CVP today measured at 6 but she has been about 4 L positive spanning about 4 days here in the hospital but with diminishing CVP I can not imagine that her intrathoracic volume is is that increased so I hesitate to diurese we do have a comfortable blood pressure was 150 systolic comfortable oxygen saturation comparable to previous at 93 and we await the biopsy and flow cytometry results from the lymphadenopathy continue dual antibiotics follow renal function and if that continues to deteriorate I might ask Renal to look in Quality Stroke Does the patient have a stroke diagnosis?: No VTE Prior VTE?: No VTE Risk Level:: Medical - moderate - high VTE Device Contraindication: Treatment Not Indicated VTE Drug Contraindication: N/A - Med Ordered
[2021-12-05 11:49] LABS: Glucose, Whole Blood 293 mg/dL (60-115)
[2021-12-05] MEDS: dexmedeTOMIDidine HCL/NS 400 MCG/100 ML INFUS..BTL 34.5 MCG IVCONT ×4 (14:10→21:58)
--- NOTE | 2021-12-05 15:42 | P.PNNP_ITS ---
Subjective Subjective Date of Service: 12/05/21 Interval history: Events noted. All recent data reviewed Physical Exam Vital Signs: Vital Signs: Last Vital Signs Temp 101.5 F H 12/05/21 15:00 Pulse 90 12/05/21 15:00 Resp 31 H 12/05/21 15:00 BP 145/63 H 12/05/21 15:00 Pulse Ox 94 12/05/21 15:00 O2 Del Method 12/05/21 15:00 FiO2 25 12/05/21 15:36 Oxygen Flow Rate 12/05/21 07:00 BMI result Body Mass Index 52.0 Const: General: no acute distress Neck: Neck: Yes supple Resp: Auscultation: diminished lung sounds Cardio: Rate: regular rate GI: Palpation (GI): Soft to palpation Skin: General skin exam: no rashes or lesions noted Objective Data Labs CBC & Chem 7: 12/05/21 05:20 12/05/21 05:20 Labs: Laboratory Results - last 24 hr 12/04/21 12/04/21 12/05/21 17:54 20:07 00:10 WBC RBC Hgb Hct MCV MCH MCHC RDW Plt Count MPV Immature Gran % (Auto) Neut % (Auto) Lymph % (Auto) [place] % (Auto) Eos % (Auto) Baso % (Auto) Lymph # (Auto) [place] # (Auto) Eos # (Auto) Baso # (Auto) Abs Immat Gran (auto) Absolute Neuts (auto) Absolute Nucleated RBC Nucleated RBC % (auto) Smear Tech's Comments VBG pH VBG pCO2 VBG pO2 VBG HCO3 VBG O2 Saturation VBG Base Excess Sodium Potassium Chloride Carbon Dioxide Anion Gap BUN Creatinine Estim Creat Clear Calc Estimated GFR POC Glucose 314 H 280 H 305 H Random Glucose Calcium Phosphorus Magnesium Total Bilirubin AST ALT Alkaline Phosphatase B-Natriuretic Peptide Total Protein Albumin 12/05/21 12/05/21 12/05/21 05:20 05:20 05:20 WBC 20.1 H RBC 3.43 L Hgb 8.8 L Hct 28.6 L MCV 83.4 MCH 25.7 L MCHC 30.8 L RDW 19.3 H Plt Count 254 MPV 12.7 H Immature Gran % (Auto) 2.0 H Neut % (Auto) 90.2 H Lymph % (Auto) 4.4 L [place] % (Auto) 3.2 Eos % (Auto) 0.1 Baso % (Auto) 0.1 Lymph # (Auto) 0.9 L [place] # (Auto) 0.6 Eos # (Auto) 0.0 Baso # (Auto) 0.0 Abs Immat Gran (auto) 0.40 H Absolute Neuts (auto) 18.1 H Absolute Nucleated RBC 0.000 Nucleated RBC % (auto) 0.0 Smear Tech's Comments VERIFIED VBG pH VBG pCO2 VBG pO2 VBG HCO3 VBG O2 Saturation VBG Base Excess Sodium 140 Potassium 4.3 Chloride 106 Carbon Dioxide 21 L Anion Gap 17 BUN 41 H Creatinine 1.68 H Estim Creat Clear Calc 45.3 Estimated GFR 30 POC Glucose Random Glucose 323 H Calcium 8.1 L Phosphorus 3.6 Magnesium 2.3 Total Bilirubin 0.4 AST 14 ALT 23 Alkaline Phosphatase 61 B-Natriuretic Peptide 1470 H Total Protein 6.1 L Albumin 3.2 L 12/05/21 12/05/21 12/05/21 05:21 05:43 11:45 WBC RBC Hgb Hct MCV MCH MCHC RDW Plt Count MPV Immature Gran % (Auto) Neut % (Auto) Lymph % (Auto) [place] % (Auto) Eos % (Auto) Baso % (Auto) Lymph # (Auto) [place] # (Auto) Eos # (Auto) Baso # (Auto) Abs Immat Gran (auto) Absolute Neuts (auto) Absolute Nucleated RBC Nucleated RBC % (auto) Smear Tech's Comments VBG pH 7.48 H VBG pCO2 24 VBG pO2 71 VBG HCO3 18 L VBG O2 Saturation 94.0 VBG Base Excess -3.6 Sodium Potassium Chloride Carbon Dioxide Anion Gap BUN Creatinine Estim Creat Clear Calc Estimated GFR POC Glucose 279 H 293 H Random Glucose Calcium Phosphorus Magnesium Total Bilirubin AST ALT Alkaline Phosphatase B-Natriuretic Peptide Total Protein Albumin Microbiology Microbiology Results: Microbiology 12/03/21 09:08 Bronchial Washings Gram Stain - Final 12/03/21 09:08 Bronchial Washings - Preliminary Klebsiella pneumoniae Yeast 11/29/21 22:29 Blood - Venous Blood Culture - Final No growth after 5 days. 12/02/21 11:29 Blood - Venous Blood Culture - Preliminary No growth after 48 hours. 12/02/21 11:29 Blood - Venous Blood Culture - Preliminary No growth after 48 hours. 12/02/21 12:24 Urine Catheterized - Turner Catheter Urine Culture - Final Klebsiella pneumoniae 12/02/21 12:24 Sputum - Suctioned Gram Stain - Final 12/02/21 12:24 Sputum - Suctioned Sputum Culture - Final Klebsiella pneumoniae 11/29/21 22:30 Sputum - Suctioned Gram Stain - Final 11/29/21 22:30 Sputum - Suctioned Sputum Culture - Final Klebsiella pneumoniae 11/27/21 13:49 Thoracentesis Fluid Gram Stain - Final 11/27/21 13:49 Thoracentesis Fluid Anaerobic Culture - Final NO GROWTH AFTER 5 DAYS 11/27/21 13:49 Thoracentesis Fluid Body Fluid Culture - Final No growth after 2 days 11/29/21 22:29 Blood - Venous Blood Culture - Final Coag negative Staphylococcus 11/29/21 22:31 Urine Catheterized - Turner Catheter Urine Culture - Final No growth. 11/25/21 14:57 Blood - Venous Blood Culture - Final No growth after 5 days. 11/25/21 14:57 Blood - Venous Blood Culture - Final No growth after 5 days. 11/25/21 09:30 Pleural Fluid Direct Acid Fast Bacilli Smear - Final 11/25/21 09:30 Pleural Fluid Fungal Identification - Preliminary No growth to date. 11/25/21 09:30 Thoracentesis Fluid Gram Stain - Final 11/25/21 09:30 Thoracentesis Fluid Anaerobic Culture - Final NO GROWTH AFTER 5 DAYS 11/25/21 09:30 Thoracentesis Fluid Body Fluid Culture - Final No growth after 2 days 11/25/21 15:30 Sputum - Suctioned Gram Stain - Final 11/25/21 15:30 Sputum - Suctioned Sputum Culture - Final 11/19/21 18:42 Blood - Venous Blood Culture - Final No growth after 5 days. 11/19/21 18:37 Blood - Venous Blood Culture - Final No growth after 5 days. 11/20/21 03:44 Sputum - Suctioned Gram Stain - Final 11/20/21 03:44 Sputum - Suctioned Sputum Culture - Final 11/20/21 Unknown Urine Catheterized - Turner Catheter Urine Culture - Final No growth. Procedures Date of Service Date of Service: 12/05/21 Assessment & Plan Assessment and plan (1) LEO (acute kidney injury): Status: Acute Assessment and Plan: Has baseline CKD 3 with serum creatinine of 1.4 to 1.7 LEO due to tubular injury- resolved Urine output good ; D/Urban diuretics Renal functions fairly stable Continue rest of current supportive care Time Spent With Patient Time: Total time spent is greater than 50% in coordination of care (as documented) at patient's floor/unit and/or counseling patient: Progress Note: Quality Stroke Does the patient have a stroke diagnosis?: No
[2021-12-05] MEDS: Midazolam HCl/PF 2 MG/2 ML VIAL IVPUSH (16:12)
[2021-12-05 18:01] LABS: Glucose, Whole Blood 369 mg/dL (60-115)
[2021-12-05] MEDS: Acetaminophen Oral Liquid 650 MG/20.3 ML SOLUTION PO (20:16)
[2021-12-06] VITALS (35 sets, daily range): BP systolic 113–156; BP diastolic 39–73; PULSE 61–112; RESP 18–35; TEMP 34.9–38.7; O2SAT 92–96; BMI 53.8
--- NOTE | 2021-12-06 | ECG_ITS ---
Test Reason : rhythm check Blood Pressure : / mmHG Vent. Rate : 106 BPM Atrial Rate : 106 BPM P-R Int : 168 ms QRS Dur : 112 ms QT Int : 312 ms P-R-T Axes : 029 105 -38 degrees QTc Int : 414 ms Sinus tachycardia with Premature atrial complexes Rightward axis ST & T wave abnormality, consider inferior ischemia Abnormal ECG When compared with ECG of 22-NOV-2021 16:13, Heart rate has increased Referred By: Janet Tim Electronically Signed By:AMANDA RAMIREZ
[2021-12-06 00:03] LABS: Glucose, Whole Blood 361 mg/dL (60-115)
[2021-12-06] MEDS: Insulin Lispro 100 UNIT/ML 3 ML VIAL SUBCUT ×3 (00:15→12:18)
[2021-12-06] MEDS: Insulin Regular, Human 100 UNIT/ML 3 ML VIAL IVPUSH (00:27)
[2021-12-06] MEDS: dexmedeTOMIDidine HCL/NS 400 MCG/100 ML INFUS..BTL 34.5 MCG IVCONT ×3 (00:30→06:17)
[2021-12-06] MEDS: Hydrocortisone Sod Succ/PF 100 MG VIAL IVPUSH (03:18)
[2021-12-06 05:23] LABS: Glucose, Whole Blood 345 mg/dL (60-115)
[2021-12-06 05:32] LABS: VBG Base Excess -4.7 mmol/L; VBG HCO3 17 mmol/L (22-26); VBG pCO2 23 mmHg; VBG pH 7.46 (7.32-7.43); VBG pO2 57 mmHg
[2021-12-06 05:44] LABS: Basophils Percent Auto 0.2 % (0-2); Eosinophils Percent Auto 0.1 % (0-4); Mean Corpuscular Volume 82.7 fL (80.0-98.0); Monocytes Absolute Auto 0.9 X10*3/uL (0.1-1.2); Monocytes Percent Auto 5.1 % (2-11); PLT ABN DIST 1; Red Cell Distribution Width 19.6 % (11.0-16.0); SCAN SMEAR FLAG 1; White Blood Count 18.4 X10*3/uL (4.8-10.8)
[2021-12-06 05:45] LABS: Hematocrit 29.6 % (37.0-47.0); Hemoglobin 9.2 g/dl (12.0-16.0); Imm Gran Abs Auto 0.22 X10*3/uL (0.00-0.03); Imm Gran Pct Auto 1.2 % (0.0-0.4); Lymphocytes Absolute Auto 1.2 X10*3/uL (1.2-4.9); Lymphocytes Percent Auto 6.6 % (20-40); Mean Corpuscular HGB Conc 31.1 g/dl (31.0-35.0); Mean Corpuscular Hemoglobin 25.7 pg (27.0-33.0); Mean Platelet Volume 13.3 fL (9.4-12.3); Neutrophils Percent Auto 86.8 % (45-73); Platelet Count 261 X10*3/uL (160-400); Red Blood Count 3.58 X10*6/uL (4.20-5.50)
[2021-12-06 05:51] LABS: Albumin Level 3.3 g/dL (3.5-5.0)
[2021-12-06 05:52] LABS: MANUAL DIFF FLAG NO
[2021-12-06 06:04] LABS: B Type Natriuretic Peptide 903 pg/mL (<100)
[2021-12-06 06:09] LABS: Alanine Aminotransferase 22 U/L (0-31); Albumin Level 3.3 g/dL (3.5-5.0); Alkaline Phosphatase 55 U/L (39-117); Anion Gap 18 (12-20); Aspartate Amino Transferase 19 U/L (5-31); Bilirubin Total 0.4 mg/dL (0.0-1.0); Blood Urea Nitrogen 49 mg/dL (9-16); Calcium 8.3 mg/dL (8.4-10.2); Carbon Dioxide 20 mmol/L (22-29); Chloride 106 mmol/L (96-108); Creatinine Clr Calc Pharmacy 44.9; Estimated Glomerular Filt Rate 30; Glucose Random 400 mg/dL (60-115); Magnesium 2.6 mg/dL (1.6-2.6); Phosphorus 3.6 mg/dL (2.7-4.5); Potassium 4.7 mmol/L (3.3-5.1); Sodium 139 mmol/L (135-145); Total Protein 6.3 g/dL (6.5-8.0)
[2021-12-06] MEDS: Heparin Sodium,Porcine 5,000 UNIT/ML VIAL 5000 UNIT SUBCUT ×3 (06:18→21:29)
[2021-12-06] MEDS: levoFLOXacin/D5W 250 MG/50 ML PIGGYBACK 50 MG IV (06:18)
[2021-12-06 06:44] LABS: Venous Blood Gas Refer to POC result
[2021-12-06] MEDS: Albuterol/Iprat 2.5/0.5MG 3 ML AMPUL.NEB INHALE ×4 (08:18→20:39)
[2021-12-06] MEDS: Chlorhexidine Gluc Oral Rinse 15 ML MOUTHWASH BUCCAL ×3 (08:33→20:04)
[2021-12-06] MEDS: Caspofungin Acetate 70 MG in 0.9 % Sodium Chloride 250 ML 250 MG IV (08:36)
[2021-12-06] MEDS: Nystatin Powder 15 GM BOTTLE 1 APPL TOPICAL ×2 (08:36→21:29)
[2021-12-06] MEDS: Insulin Glargine,Hum.rec.anlog 100 UNIT/ML 10 ML VIAL 25 UNIT SUBCUT ×2 (08:36→20:04)
[2021-12-06] MEDS: Spironolactone 25 MG TABLET PO (08:37)
[2021-12-06] MEDS: Acetaminophen Oral Liquid 650 MG/20.3 ML SOLUTION PO (10:56)
--- NOTE | 2021-12-06 12:11 | PM.CCPN ---
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 she underwent bronchoscopic ultrasound and biopsy of the paratracheal lymph nodes and that is now pending and she has been for the last 3 days on pressure support and whenever we get down to a total airway pressure of 17 tidal volume start to drop in her respiratory rates increase into the low 30s clearly demonstrating failure and then we rest or overnight and start again and currently were on 15/08 a total of 19 with an FiO2 still remaining about 35 about 30% thus far tidal volumes are adequate and F 400 cc cell will will watch for able to tolerate the maybe for 2 hours running being on 03/08 total of 17 and we might decide to DC the tube in at least 1st attempt a nasal high-flow and use the BiPAP as a resting or rescue mechanism She has been febrile and not being toxic show ease looked as though maybe maybe this was from a lymphomatous process but once avail is culture she grew an ESBL Klebsiella urine and sputum and she is been on treatment for that including meropenem and then I recently added Levaquin because of persistent fever but she also has in a progressively rising BUN and creatinine some stopping the meropenem and have since stopped the omeprazole just to remove anything with any potential nephrotoxicity Critical Care Time (minutes): 35 Physical Exam Vital Signs: Vital Signs: Last Vital Signs Temp 101.3 F H 12/06/21 12:00 Pulse 79 12/06/21 12:00 Resp 22 H 12/06/21 12:00 BP 113/39 L 12/06/21 12:00 Pulse Ox 93 12/06/21 12:00 O2 Del Method 12/06/21 12:00 FiO2 25 12/06/21 12:00 Oxygen Flow Rate 25 12/06/21 07:00 BMI result Body Mass Index 53.8 Awake all sedation appropriate mental status oriented following a commands no focality Lungs diminished breath sounds bilaterally but no accessory muscle use Abdomen soft and tolerating feedings with no organomegaly Bedside echo with class 1 LV systolic function Objective Data Labs CBC & Chem 7: 12/06/21 05:12 12/06/21 05:12 Labs: Laboratory Results - last 24 hr 12/05/21 12/05/21 12/06/21 17:56 23:40 05:12 WBC 18.4 H RBC 3.58 L Hgb 9.2 L Hct 29.6 L MCV 82.7 MCH 25.7 L MCHC 31.1 RDW 19.6 H Plt Count 261 MPV 13.3 H Immature Gran % (Auto) 1.2 H Neut % (Auto) 86.8 H Lymph % (Auto) 6.6 L [place] % (Auto) 5.1 Eos % (Auto) 0.1 Baso % (Auto) 0.2 Lymph # (Auto) 1.2 [place] # (Auto) 0.9 Eos # (Auto) 0.0 Baso # (Auto) 0.0 Abs Immat Gran (auto) 0.22 H Absolute Neuts (auto) 16.0 H Absolute Nucleated RBC 0.000 Nucleated RBC % (auto) 0.0 VBG pH VBG pCO2 VBG pO2 VBG HCO3 VBG O2 Saturation VBG Base Excess Sodium Potassium Chloride Carbon Dioxide Anion Gap BUN Creatinine Estim Creat Clear Calc Estimated GFR POC Glucose 369 H* 361 H* Random Glucose Calcium Phosphorus Magnesium Total Bilirubin AST ALT Alkaline Phosphatase B-Natriuretic Peptide Total Protein Albumin 12/06/21 12/06/21 12/06/21 05:12 05:12 05:12 WBC RBC Hgb Hct MCV MCH MCHC RDW Plt Count MPV Immature Gran % (Auto) Neut % (Auto) Lymph % (Auto) [place] % (Auto) Eos % (Auto) Baso % (Auto) Lymph # (Auto) [place] # (Auto) Eos # (Auto) Baso # (Auto) Abs Immat Gran (auto) Absolute Neuts (auto) Absolute Nucleated RBC Nucleated RBC % (auto) VBG pH VBG pCO2 VBG pO2 VBG HCO3 VBG O2 Saturation VBG Base Excess Sodium 139 Potassium 4.7 Chloride 106 Carbon Dioxide 20 L Anion Gap 18 BUN 49 H Creatinine 1.71 H Estim Creat Clear Calc 44.9 Estimated GFR 30 POC Glucose Random Glucose 400 H* Calcium 8.3 L Phosphorus 3.6 Magnesium 2.6 Total Bilirubin 0.4 AST 19 ALT 22 Alkaline Phosphatase 55 B-Natriuretic Peptide 903 H Total Protein 6.3 L Albumin 3.3 L 3.3 L 12/06/21 12/06/21 05:19 05:27 WBC RBC Hgb Hct MCV MCH MCHC RDW Plt Count MPV Immature Gran % (Auto) Neut % (Auto) Lymph % (Auto) [place] % (Auto) Eos % (Auto) Baso % (Auto) Lymph # (Auto) [place] # (Auto) Eos # (Auto) Baso # (Auto) Abs Immat Gran (auto) Absolute Neuts (auto) Absolute Nucleated RBC Nucleated RBC % (auto) VBG pH 7.46 H VBG pCO2 23 VBG pO2 57 VBG HCO3 17 L VBG O2 Saturation 87.0 VBG Base Excess -4.7 Sodium Potassium Chloride Carbon Dioxide Anion Gap BUN Creatinine Estim Creat Clear Calc Estimated GFR POC Glucose 345 H Random Glucose Calcium Phosphorus Magnesium Total Bilirubin AST ALT Alkaline Phosphatase B-Natriuretic Peptide Total Protein Albumin Microbiology Microbiology Results: Microbiology 12/03/21 09:08 Bronchial Washings Gram Stain - Final 12/03/21 09:08 Bronchial Washings - Preliminary Klebsiella pneumoniae Yeast 11/29/21 22:29 Blood - Venous Blood Culture - Final No growth after 5 days. 12/02/21 11:29 Blood - Venous Blood Culture - Preliminary No growth after 48 hours. 12/02/21 11:29 Blood - Venous Blood Culture - Preliminary No growth after 48 hours. 12/02/21 12:24 Urine Catheterized - Turner Catheter Urine Culture - Final Klebsiella pneumoniae 12/02/21 12:24 Sputum - Suctioned Gram Stain - Final 12/02/21 12:24 Sputum - Suctioned Sputum Culture - Final Klebsiella pneumoniae 11/29/21 22:30 Sputum - Suctioned Gram Stain - Final 11/29/21 22:30 Sputum - Suctioned Sputum Culture - Final Klebsiella pneumoniae 11/27/21 13:49 Thoracentesis Fluid Gram Stain - Final 11/27/21 13:49 Thoracentesis Fluid Anaerobic Culture - Final NO GROWTH AFTER 5 DAYS 11/27/21 13:49 Thoracentesis Fluid Body Fluid Culture - Final No growth after 2 days 11/29/21 22:29 Blood - Venous Blood Culture - Final Coag negative Staphylococcus 11/29/21 22:31 Urine Catheterized - Turner Catheter Urine Culture - Final No growth. 11/25/21 14:57 Blood - Venous Blood Culture - Final No growth after 5 days. 11/25/21 14:57 Blood - Venous Blood Culture - Final No growth after 5 days. 11/25/21 09:30 Pleural Fluid Direct Acid Fast Bacilli Smear - Final 11/25/21 09:30 Pleural Fluid Fungal Identification - Preliminary No growth to date. 11/25/21 09:30 Thoracentesis Fluid Gram Stain - Final 11/25/21 09:30 Thoracentesis Fluid Anaerobic Culture - Final NO GROWTH AFTER 5 DAYS 11/25/21 09:30 Thoracentesis Fluid Body Fluid Culture - Final No growth after 2 days 11/25/21 15:30 Sputum - Suctioned Gram Stain - Final 11/25/21 15:30 Sputum - Suctioned Sputum Culture - Final 11/19/21 18:42 Blood - Venous Blood Culture - Final No growth after 5 days. 11/19/21 18:37 Blood - Venous Blood Culture - Final No growth after 5 days. 11/20/21 03:44 Sputum - Suctioned Gram Stain - Final 11/20/21 03:44 Sputum - Suctioned Sputum Culture - Final 11/20/21 Unknown Urine Catheterized - Turner Catheter Urine Culture - Final No growth. Progress Note: A&P Assessment and plan (1) Infection with ESBL Klebsiella oxytoca: Status: Acute (2) Urinary tract infection due to ESBL Klebsiella: Status: Acute (3) Lymphadenopathy, mediastinal: Status: Acute (4) Pleural effusion: Status: Acute (5) Respiratory failure: Status: Acute (6) Obesity: Status: Acute (7) Hypothyroidism: Status: Acute (8) HTN (hypertension): Status: Acute (9) Diabetes mellitus with insulin therapy: Status: Acute (10) Sepsis: Status: Acute (11) LEO (acute kidney injury): Status: Acute (12) Acute exacerbation of congestive heart failure: Status: Acute (13) Pneumonia: Status: Acute (14) Essential hypertension: Status: Acute (15) Acute respiratory failure with hypoxia: Status: Acute Plan Sewn plan is continued antibiotic treatment steroids have been discontinued completely of and because there is no persistent need 1. And 2. The glucose is out of control And since the last CVP which was reading about 5-6 we have another positive intake and output for 24 hours but with rising BUN and creatinine I am just afraid of diuresing so we sit tight and continue with the pressure support weaning trial of the ventilator Quality Stroke Does the patient have a stroke diagnosis?: No VTE Prior VTE?: No VTE Risk Level:: Medical - moderate - high VTE Device Contraindication: Treatment Not Indicated VTE Drug Contraindication: N/A - Med Ordered
[2021-12-06 12:17] LABS: Glucose, Whole Blood 337 mg/dL (60-115)
--- NOTE | 2021-12-06 15:53 | PC.NURSE ---
Addendum entered by Cain Hoover RN 12/06/21 18:05: Steroids were discontinued by MD in response to high POCs, but POC remain elevated Original Note: Assumed care at 07:00. Patient began day on Precedex gtt 1 mcg/kg/min. At that time, patient was opening eyes to voice, and drowsy; precedex gtt stopped at 0755 am. Patient has been moving all extremities, nodding and shaking head to answer yes and no questions. Able to follow commands consistently by squeezing hands, wiggling feet to command, tracking. Ventilator weaning commenced by MD in coordination with RT, and PC settings were gradually weaned (see ventilator bundle assessment for settings). Patient was doing well through weaning, with minute volumes 9-11 and tidal volumes 340 - 550 or so. Patient was tachypneic at brief intervals, with RR as high as 31 at times, but able to slow her breathing with encouragement and coaching to 25-26 breaths per minute, denied increased work of breathing, no accessory muscle use. Patient eventually extubated at 1520. Patient family has been present and providing supportive care and encouragement as patient is now denying discomfort and denying increased work of breathing, noted that her RR is presently around 27-36 RPM, and on high flow with 50% and 60 LPM. Bipap is back-up plan if patient tires out, but also is ok to rest patient on overnight per MD. Patient is mouth breathing with apparently weak ability to close mouth, but can do so on command, and she is protecting her airway, coughing and clearing secretions well. Patient has not yet spoken since extubation. Patient has had high POC glucose today, in the mid 300's, and trended down, covered as per sliding scale, no additional insulin at this time per MD. On telemetry sinus rhythm with a first degree AV block. BP slightly elevated. 140's-160's systolic BP. Urine output is 25-75 cc/hour of concentrated dark camila urine. No BM today. NPO except sips of water at this time. No changes to skin integrity.
[2021-12-06 18:14] LABS: Glucose, Whole Blood 203 mg/dL (60-115)
[2021-12-06 23:15] LABS: Glucose, Whole Blood 233 mg/dL (60-115)
[2021-12-07] VITALS (33 sets, daily range): BP systolic 125–185; BP diastolic 53–85; PULSE 83–108; RESP 20–35; TEMP 36.7–37.6; O2SAT 92–98
[2021-12-07] MEDS: Insulin Lispro 100 UNIT/ML 3 ML VIAL SUBCUT (00:12)
[2021-12-07 00:20] LABS: Alanine Aminotransferase 58 U/L (0-31); Albumin Level 3.5 g/dL (3.5-5.0); Alkaline Phosphatase 58 U/L (39-117); Anion Gap 18 (12-20); Aspartate Amino Transferase 72 U/L (5-31); Bilirubin Total 0.5 mg/dL (0.0-1.0); Blood Urea Nitrogen 57 mg/dL (9-16); Calcium 8.3 mg/dL (8.4-10.2); Carbon Dioxide 20 mmol/L (22-29); Chloride 108 mmol/L (96-108); Creatinine Clr Calc Pharmacy 47.3; Estimated Glomerular Filt Rate 31; Glucose Random 230 mg/dL (60-115); Magnesium 2.5 mg/dL (1.6-2.6); Phosphorus 3.7 mg/dL (2.7-4.5); Potassium 3.8 mmol/L (3.3-5.1); Sodium 142 mmol/L (135-145); Total Protein 6.5 g/dL (6.5-8.0)
[2021-12-07 00:27] LABS: Troponin-I High Sensitivity 168.3 ng/L (<3.5-17.0)
[2021-12-07] MEDS: fentaNYL citrate/PF 100 MCG/2 ML VIAL 25 MCG IVPUSH (01:21)
[2021-12-07 02:52] LABS: Troponin-I High Sensitivity 166.5 ng/L (<3.5-17.0)
[2021-12-07 05:33] LABS: Glucose, Whole Blood 158 mg/dL (60-115)
[2021-12-07 05:43] LABS: Basophils Absolute Auto 0.1 X10*3/uL (0.0-0.2); Basophils Percent Auto 0.5 % (0-2); Monocytes Absolute Auto 1.7 X10*3/uL (0.1-1.2); PLT ABN DIST 1; SCAN SMEAR FLAG 1
[2021-12-07 05:45] LABS: Eosinophils Absolute Auto 1.1 X10*3/uL (0.0-0.4); Eosinophils Percent Auto 4.7 % (0-4); Hematocrit 33.8 % (37.0-47.0); Hemoglobin 9.9 g/dl (12.0-16.0); Imm Gran Abs Auto 0.27 X10*3/uL (0.00-0.03); Imm Gran Pct Auto 1.1 % (0.0-0.4); Lymphocytes Absolute Auto 3.2 X10*3/uL (1.2-4.9); Lymphocytes Percent Auto 13.4 % (20-40); MANUAL DIFF FLAG SCAN; Mean Corpuscular HGB Conc 29.3 g/dl (31.0-35.0); Mean Corpuscular Hemoglobin 24.9 pg (27.0-33.0); Mean Corpuscular Volume 85.1 fL (80.0-98.0); Monocytes Percent Auto 6.8 % (2-11); Neutrophils Absolute Auto 17.8 x10*3/uL (2.0-8.3); Neutrophils Percent Auto 73.5 % (45-73); PLT CLUMP 1; Red Blood Count 3.97 X10*6/uL (4.20-5.50); Red Cell Distribution Width 19.9 % (11.0-16.0); White Blood Count 24.2 X10*3/uL (4.8-10.8)
[2021-12-07 05:54] LABS: Albumin Level 3.5 g/dL (3.5-5.0)
[2021-12-07 06:03] LABS: Alanine Aminotransferase 81 U/L (0-31); Albumin Level 3.5 g/dL (3.5-5.0); Alkaline Phosphatase 62 U/L (39-117); Anion Gap 17 (12-20); Aspartate Amino Transferase 112 U/L (5-31); Bilirubin Total 0.5 mg/dL (0.0-1.0); Blood Urea Nitrogen 53 mg/dL (9-16); Calcium 8.4 mg/dL (8.4-10.2); Carbon Dioxide 21 mmol/L (22-29); Chloride 108 mmol/L (96-108); Creatinine Clr Calc Pharmacy 51.2; Estimated Glomerular Filt Rate 34; Glucose Random 156 mg/dL (60-115); Magnesium 2.6 mg/dL (1.6-2.6); Phosphorus 4.1 mg/dL (2.7-4.5); Potassium 3.7 mmol/L (3.3-5.1); Sodium 142 mmol/L (135-145); Total Protein 6.7 g/dL (6.5-8.0)
[2021-12-07 06:04] LABS: B Type Natriuretic Peptide 965 pg/mL (<100)
[2021-12-07 06:12] LABS: Platelet Count 288 X10*3/uL (160-400)
[2021-12-07 06:13] LABS: SLIDE REVIEW VERIFIED
[2021-12-07] MEDS: Heparin Sodium,Porcine 5,000 UNIT/ML VIAL 5000 UNIT SUBCUT ×3 (07:13→22:19)
[2021-12-07] MEDS: levoFLOXacin/D5W 250 MG/50 ML PIGGYBACK 50 MG IV (07:13)
[2021-12-07 07:34] LABS: Venous Blood Gas Refer to POC result
[2021-12-07 08:01] LABS: VBG Base Excess -6.7 mmol/L; VBG HCO3 16 mmol/L (22-26); VBG pCO2 26 mmHg; VBG pO2 106 mmHg
[2021-12-07] MEDS: Albuterol/Iprat 2.5/0.5MG 3 ML AMPUL.NEB INHALE ×4 (08:11→20:32)
[2021-12-07] MEDS: Spironolactone 25 MG TABLET PO (08:41)
[2021-12-07] MEDS: Nystatin Powder 15 GM BOTTLE 1 APPL TOPICAL ×2 (08:41→20:16)
--- NOTE | 2021-12-07 09:49 | P.PNCC_ITS ---
Subjective Subjective Date of Service: 12/07/21 Interval History: 71-year-old lady with underlying history of COPD, congestive heart failure, diabetes mellitus, CKD, hypertension, hypothyroidism, peripheral vascular disease, recent admission for COVID-19 approximately 1 months prior admitted on 11/19/2021 with dyspnea and hypoxia resistant to CPAP support requiring intubation and ventilatory support. CT chest with bilateral pleural effusions with compressive atelectasis. Treated for Klebsiella pneumonia/UTI and diuresed with slow improvement, complicated by LEO on CKD, also noted to have diffuse lymphadenopathy, now status post groin lymph node aspiration and EBUS aspiration of mediastinal lymph nodes with definite pathology still pending. Extubated 12/06/2021. Events overnight. Critical Care Time (minutes): 45 Physical Exam Vital Signs: Vital Signs: Last Vital Signs Temp 98.2 F 12/07/21 09:00 Pulse 86 12/07/21 09:00 Resp 31 H 12/07/21 09:00 BP 165/73 H 12/07/21 09:00 Pulse Ox 94 12/07/21 09:00 O2 Del Method 12/07/21 09:00 O2 Flow Rate 40 12/07/21 09:00 FiO2 40 12/07/21 09:00 Oxygen Flow Rate 25 12/07/21 07:00 BMI result Body Mass Index 53.8 Const: General: no acute distress, alert and awake Nutritional Appearance: obese Eyes: Sclerae: sclerae normal EOM: EOMs intact bilaterally Neck: Neck: Yes no lymphadenopathy, Yes trachea midline and Yes supple Resp: Effort & Inspection: normal respiratory effort and no respiratory d istress Auscultation: crackles (Bilateral) Cardio: Rate: regular rate Rhythm: regular rhythm Heart sounds: no gallops, no murmurs and no rubs GI: Palpation (GI): Soft to palpation and Other GI palpation findings present ( Nontender) Auscultation: normal bowel sounds Extrem: General: No clubbing, No cyanosis and Yes edema (Trace bilateral) Objective Data Labs CBC & Chem 7: 12/07/21 05:23 12/07/21 05:23 Labs: Laboratory Results - last 24 hr 12/06/21 12/06/21 12/06/21 12:12 18:10 23:11 WBC RBC Hgb Hct MCV MCH MCHC RDW Plt Count MPV Immature Gran % (Auto) Neut % (Auto) Lymph % (Auto) [place] % (Auto) Eos % (Auto) Baso % (Auto) Lymph # (Auto) [place] # (Auto) Eos # (Auto) Baso # (Auto) Abs Immat Gran (auto) Absolute Neuts (auto) Absolute Nucleated RBC Nucleated RBC % (auto) Smear Tech's Comments VBG pH VBG pCO2 VBG pO2 VBG HCO3 VBG O2 Saturation VBG Base Excess Sodium Potassium Chloride Carbon Dioxide Anion Gap BUN Creatinine Estim Creat Clear Calc Estimated GFR POC Glucose 337 H 203 H 233 H Random Glucose Calcium Phosphorus Magnesium Total Bilirubin AST ALT Alkaline Phosphatase Troponin I High Sens B-Natriuretic Peptide Total Protein Albumin 12/06/21 12/06/21 12/07/21 23:44 23:44 02:17 WBC RBC Hgb Hct MCV MCH MCHC RDW Plt Count MPV Immature Gran % (Auto) Neut % (Auto) Lymph % (Auto) [place] % (Auto) Eos % (Auto) Baso % (Auto) Lymph # (Auto) [place] # (Auto) Eos # (Auto) Baso # (Auto) Abs Immat Gran (auto) Absolute Neuts (auto) Absolute Nucleated RBC Nucleated RBC % (auto) Smear Tech's Comments VBG pH VBG pCO2 VBG pO2 VBG HCO3 VBG O2 Saturation VBG Base Excess Sodium 142 Potassium 3.8 Chloride 108 Carbon Dioxide 20 L Anion Gap 18 BUN 57 H Creatinine 1.62 H Estim Creat Clear Calc 47.3 Estimated GFR 31 POC Glucose Random Glucose 230 H Calcium 8.3 L Phosphorus 3.7 Magnesium 2.5 Total Bilirubin 0.5 AST 72 H ALT 58 H Alkaline Phosphatase 58 Troponin I High Sens 168.3 H* D 166.5 H* B-Natriuretic Peptide Total Protein 6.5 Albumin 3.5 12/07/21 12/07/21 12/07/21 05:23 05:23 05:23 WBC 24.2 H RBC 3.97 L Hgb 9.9 L Hct 33.8 L MCV 85.1 MCH 24.9 L MCHC 29.3 L RDW 19.9 H Plt Count 288 MPV 13.0 H Immature Gran % (Auto) 1.1 H Neut % (Auto) 73.5 H Lymph % (Auto) 13.4 L [place] % (Auto) 6.8 Eos % (Auto) 4.7 H Baso % (Auto) 0.5 Lymph # (Auto) 3.2 [place] # (Auto) 1.7 H Eos # (Auto) 1.1 H Baso # (Auto) 0.1 Abs Immat Gran (auto) 0.27 H Absolute Neuts (auto) 17.8 H Absolute Nucleated RBC 0.000 Nucleated RBC % (auto) 0.0 Smear Tech's Comments VERIFIED VBG pH VBG pCO2 VBG pO2 VBG HCO3 VBG O2 Saturation VBG Base Excess Sodium 142 Potassium 3.7 Chloride 108 Carbon Dioxide 21 L Anion Gap 17 BUN 53 H Creatinine 1.50 H Estim Creat Clear Calc 51.2 Estimated GFR 34 POC Glucose Random Glucose 156 H Calcium 8.4 Phosphorus 4.1 Magnesium 2.6 Total Bilirubin 0.5 AST 112 H ALT 81 H Alkaline Phosphatase 62 Troponin I High Sens B-Natriuretic Peptide 965 H Total Protein 6.7 Albumin 3.5 12/07/21 12/07/21 12/07/21 05:23 05:28 05:31 WBC RBC Hgb Hct MCV MCH MCHC RDW Plt Count MPV Immature Gran % (Auto) Neut % (Auto) Lymph % (Auto) [place] % (Auto) Eos % (Auto) Baso % (Auto) Lymph # (Auto) [place] # (Auto) Eos # (Auto) Baso # (Auto) Abs Immat Gran (auto) Absolute Neuts (auto) Absolute Nucleated RBC Nucleated RBC % (auto) Smear Tech's Comments VBG pH 7.40 VBG pCO2 26 VBG pO2 106 VBG HCO3 16 L VBG O2 Saturation 98.0 VBG Base Excess -6.7 Sodium Potassium Chloride Carbon Dioxide Anion Gap BUN Creatinine Estim Creat Clear Calc Estimated GFR POC Glucose 158 H Random Glucose Calcium Phosphorus Magnesium Total Bilirubin AST ALT Alkaline Phosphatase Troponin I High Sens B-Natriuretic Peptide Total Protein Albumin 3.5 Microbiology Microbiology Results: Microbiology 12/05/21 20:37 Blood - Venous Blood Culture - Preliminary No growth after 24 hours. 12/05/21 20:20 Blood - Venous Blood Culture - Preliminary No growth after 24 hours. 12/03/21 09:08 Bronchial Washings Gram Stain - Final 12/03/21 09:08 Bronchial Washings - Preliminary Klebsiella pneumoniae Yeast 11/29/21 22:29 Blood - Venous Blood Culture - Final No growth after 5 days. 12/02/21 11:29 Blood - Venous Blood Culture - Preliminary No growth after 48 hours. 12/02/21 11:29 Blood - Venous Blood Culture - Preliminary No growth after 48 hours. 12/02/21 12:24 Urine Catheterized - Turner Catheter Urine Culture - Final Klebsiella pneumoniae 12/02/21 12:24 Sputum - Suctioned Gram Stain - Final 12/02/21 12:24 Sputum - Suctioned Sputum Culture - Final Klebsiella pneumoniae 11/29/21 22:30 Sputum - Suctioned Gram Stain - Final 11/29/21 22:30 Sputum - Suctioned Sputum Culture - Final Klebsiella pneumoniae 11/27/21 13:49 Thoracentesis Fluid Gram Stain - Final 11/27/21 13:49 Thoracentesis Fluid Anaerobic Culture - Final NO GROWTH AFTER 5 DAYS 11/27/21 13:49 Thoracentesis Fluid Body Fluid Culture - Final No growth after 2 days 11/29/21 22:29 Blood - Venous Blood Culture - Final Coag negative Staphylococcus 11/29/21 22:31 Urine Catheterized - Turner Catheter Urine Culture - Final No growth. 11/25/21 14:57 Blood - Venous Blood Culture - Final No growth after 5 days. 11/25/21 14:57 Blood - Venous Blood Culture - Final No growth after 5 days. 11/25/21 09:30 Pleural Fluid Direct Acid Fast Bacilli Smear - Final 11/25/21 09:30 Pleural Fluid Fungal Identification - Preliminary No growth to date. 11/25/21 09:30 Thoracentesis Fluid Gram Stain - Final 11/25/21 09:30 Thoracentesis Fluid Anaerobic Culture - Final NO GROWTH AFTER 5 DAYS 11/25/21 09:30 Thoracentesis Fluid Body Fluid Culture - Final No growth after 2 days 11/25/21 15:30 Sputum - Suctioned Gram Stain - Final 11/25/21 15:30 Sputum - Suctioned Sputum Culture - Final 11/19/21 18:42 Blood - Venous Blood Culture - Final No growth after 5 days. 11/19/21 18:37 Blood - Venous Blood Culture - Final No growth after 5 days. 11/20/21 03:44 Sputum - Suctioned Gram Stain - Final 11/20/21 03:44 Sputum - Suctioned Sputum Culture - Final 11/20/21 Unknown Urine Catheterized - Turner Catheter Urine Culture - Final No growth. Progress Note: A&P Assessment and plan (1) Urinary tract infection due to ESBL Klebsiella: Status: Acute (2) Klebsiella pneumonia: Status: Acute (3) Lymphadenopathy, mediastinal: Status: Acute (4) Diabetes mellitus with insulin therapy: Status: Acute (5) LEO (acute kidney injury): Status: Acute (6) Acute exacerbation of congestive heart failure: Status: Acute (7) Acute respiratory failure with hypoxia: Status: Acute (8) Obesity: Status: Acute Plan Assessment: 71-year-old lady with underlying obesity, COPD, CHF admitted with acute hypoxic respiratory failure secondary to congestive heart failure exacerbation and pneumonia, now requiring ventilatory support. Plan: Neuro: No acute issues. Cardiac: Exacerbation of underlying congestive heart failure, improving with diuresis. 2D echocardiogram with dilated left atrium /diastolic dysfunction. Pulmonary: Acute hypoxic respiratory failure secondary to exacerbation of underlying congestive heart failure and Klebsiella pneumonia contribution initially requiring ventilatory support, extubated 12/06/2021. Continue to titrate off supplemental oxygen support as tolerated. Renal: LEO on CKD likely secondary to CHF exacerbation. Non oliguric. Continue to monitor renal indices and urine output. Nephrology service care appreciated. Endo: No acute issues. Underlying diabetes mellitus. GI: No acute issues. ID: Klebsiella pneumonia and UTI, completed ceftriaxone course. Heme/Onc: Lymphadenopathy, pathology is pending. Psych: No acute issues. Miscellaneous: No acute issues. Prophylaxis: Heparin Diet: Pending swallow evaluation Critical care time spent: 45 minutes Quality Stroke Does the patient have a stroke diagnosis?: No VTE Prior VTE?: No VTE Risk Level:: Medical - moderate - high VTE Device Contraindication: Treatment Not Indicated VTE Drug Contraindication: N/A - Med Ordered
[2021-12-07 11:38] LABS: Glucose, Whole Blood 190 mg/dL (60-115)
--- NOTE | 2021-12-07 13:29 | MHC.CLN ---
F/U PT WAS EXTUBATED YESTERDAY 12/06 CURRENTLY PT IS NPO WITH SIPS OF WATER AWAITING ANESTHESIA ATTENDING EVAL FOR APPROPRIATE DIET CONSISTENCY RECOMMEND DM DIET AND GLUCERNA SUPPLEMENTS IN ADDITION TO ANESTHESIA ATTENDING RECOMMENDATIONS FOLLOWING
[2021-12-07] MEDS: Metoprolol Tartrate 5 MG/5 ML VIAL IVPUSH ×2 (15:59→19:53)
--- NOTE | 2021-12-07 18:10 | PM.PNNEP ---
Subjective Subjective Date of Service: 12/07/21 Interval history: Extubated. All recent events/data reviewed Physical Exam Vital Signs: Vital Signs: Last Vital Signs Temp 98.2 F 12/07/21 17:00 Pulse 87 12/07/21 17:00 Resp 26 H 12/07/21 17:00 BP 161/69 H 12/07/21 17:00 Pulse Ox 97 12/07/21 17:00 O2 Del Method 12/07/21 17:00 O2 Flow Rate 60 12/07/21 17:00 FiO2 40 12/07/21 17:00 Oxygen Flow Rate 25 12/07/21 07:00 BMI result Body Mass Index 53.8 Const: General: no acute distress Eyes: EOM: EOMs intact bilaterally Resp: Auscultation: diminished lung sounds Cardio: Rate: regular rate GI: Palpation (GI): Soft to palpation Neuro: General: moves all extremities Objective Data Labs CBC & Chem 7: 12/07/21 05:23 12/07/21 05:23 Labs: Laboratory Results - last 24 hr 12/06/21 12/06/21 12/06/21 18:10 23:11 23:44 WBC RBC Hgb Hct MCV MCH MCHC RDW Plt Count MPV Immature Gran % (Auto) Neut % (Auto) Lymph % (Auto) [facility] % (Auto) Eos % (Auto) Baso % (Auto) Lymph # (Auto) [facility] # (Auto) Eos # (Auto) Baso # (Auto) Abs Immat Gran (auto) Absolute Neuts (auto) Absolute Nucleated RBC Nucleated RBC % (auto) Smear Tech's Comments VBG pH VBG pCO2 VBG pO2 VBG HCO3 VBG O2 Saturation VBG Base Excess Sodium 142 Potassium 3.8 Chloride 108 Carbon Dioxide 20 L Anion Gap 18 BUN 57 H Creatinine 1.62 H Estim Creat Clear Calc 47.3 Estimated GFR 31 POC Glucose 203 H 233 H Random Glucose 230 H Calcium 8.3 L Phosphorus 3.7 Magnesium 2.5 Total Bilirubin 0.5 AST 72 H ALT 58 H Alkaline Phosphatase 58 Troponin I High Sens B-Natriuretic Peptide Total Protein 6.5 Albumin 3.5 12/06/21 12/07/21 12/07/21 23:44 02:17 05:23 WBC 24.2 H RBC 3.97 L Hgb 9.9 L Hct 33.8 L MCV 85.1 MCH 24.9 L MCHC 29.3 L RDW 19.9 H Plt Count 288 MPV 13.0 H Immature Gran % (Auto) 1.1 H Neut % (Auto) 73.5 H Lymph % (Auto) 13.4 L [facility] % (Auto) 6.8 Eos % (Auto) 4.7 H Baso % (Auto) 0.5 Lymph # (Auto) 3.2 [facility] # (Auto) 1.7 H Eos # (Auto) 1.1 H Baso # (Auto) 0.1 Abs Immat Gran (auto) 0.27 H Absolute Neuts (auto) 17.8 H Absolute Nucleated RBC 0.000 Nucleated RBC % (auto) 0.0 Smear Tech's Comments VERIFIED VBG pH VBG pCO2 VBG pO2 VBG HCO3 VBG O2 Saturation VBG Base Excess Sodium Potassium Chloride Carbon Dioxide Anion Gap BUN Creatinine Estim Creat Clear Calc Estimated GFR POC Glucose Random Glucose Calcium Phosphorus Magnesium Total Bilirubin AST ALT Alkaline Phosphatase Troponin I High Sens 168.3 H* D 166.5 H* B-Natriuretic Peptide Total Protein Albumin 12/07/21 12/07/21 12/07/21 05:23 05:23 05:23 WBC RBC Hgb Hct MCV MCH MCHC RDW Plt Count MPV Immature Gran % (Auto) Neut % (Auto) Lymph % (Auto) [facility] % (Auto) Eos % (Auto) Baso % (Auto) Lymph # (Auto) [facility] # (Auto) Eos # (Auto) Baso # (Auto) Abs Immat Gran (auto) Absolute Neuts (auto) Absolute Nucleated RBC Nucleated RBC % (auto) Smear Tech's Comments VBG pH VBG pCO2 VBG pO2 VBG HCO3 VBG O2 Saturation VBG Base Excess Sodium 142 Potassium 3.7 Chloride 108 Carbon Dioxide 21 L Anion Gap 17 BUN 53 H Creatinine 1.50 H Estim Creat Clear Calc 51.2 Estimated GFR 34 POC Glucose Random Glucose 156 H Calcium 8.4 Phosphorus 4.1 Magnesium 2.6 Total Bilirubin 0.5 AST 112 H ALT 81 H Alkaline Phosphatase 62 Troponin I High Sens B-Natriuretic Peptide 965 H Total Protein 6.7 Albumin 3.5 3.5 12/07/21 12/07/21 12/07/21 05:28 05:31 11:34 WBC RBC Hgb Hct MCV MCH MCHC RDW Plt Count MPV Immature Gran % (Auto) Neut % (Auto) Lymph % (Auto) [facility] % (Auto) Eos % (Auto) Baso % (Auto) Lymph # (Auto) [facility] # (Auto) Eos # (Auto) Baso # (Auto) Abs Immat Gran (auto) Absolute Neuts (auto) Absolute Nucleated RBC Nucleated RBC % (auto) Smear Tech's Comments VBG pH 7.40 VBG pCO2 26 VBG pO2 106 VBG HCO3 16 L VBG O2 Saturation 98.0 VBG Base Excess -6.7 Sodium Potassium Chloride Carbon Dioxide Anion Gap BUN Creatinine Estim Creat Clear Calc Estimated GFR POC Glucose 158 H 190 H Random Glucose Calcium Phosphorus Magnesium Total Bilirubin AST ALT Alkaline Phosphatase Troponin I High Sens B-Natriuretic Peptide Total Protein Albumin Microbiology Microbiology Results: Microbiology 12/02/21 11:29 Blood - Venous Blood Culture - Final No growth after 5 days. 12/02/21 11:29 Blood - Venous Blood Culture - Final No growth after 5 days. 11/25/21 09:30 Pleural Fluid Fungal Identification - Preliminary No growth after 1 week. 12/03/21 09:08 Bronchial Washings Gram Stain - Final 12/03/21 09:08 Bronchial Washings - Preliminary Klebsiella pneumoniae Yeast 12/05/21 20:37 Blood - Venous Blood Culture - Preliminary No growth after 24 hours. 12/05/21 20:20 Blood - Venous Blood Culture - Preliminary No growth after 24 hours. 11/29/21 22:29 Blood - Venous Blood Culture - Final No growth after 5 days. 12/02/21 12:24 Urine Catheterized - Turner Catheter Urine Culture - Final Klebsiella pneumoniae 12/02/21 12:24 Sputum - Suctioned Gram Stain - Final 12/02/21 12:24 Sputum - Suctioned Sputum Culture - Final Klebsiella pneumoniae 11/29/21 22:30 Sputum - Suctioned Gram Stain - Final 11/29/21 22:30 Sputum - Suctioned Sputum Culture - Final Klebsiella pneumoniae 11/27/21 13:49 Thoracentesis Fluid Gram Stain - Final 11/27/21 13:49 Thoracentesis Fluid Anaerobic Culture - Final NO GROWTH AFTER 5 DAYS 11/27/21 13:49 Thoracentesis Fluid Body Fluid Culture - Final No growth after 2 days 11/29/21 22:29 Blood - Venous Blood Culture - Final Coag negative Staphylococcus 11/29/21 22:31 Urine Catheterized - Turner Catheter Urine Culture - Final No growth. 11/25/21 14:57 Blood - Venous Blood Culture - Final No growth after 5 days. 11/25/21 14:57 Blood - Venous Blood Culture - Final No growth after 5 days. 11/25/21 09:30 Pleural Fluid Direct Acid Fast Bacilli Smear - Final 11/25/21 09:30 Thoracentesis Fluid Gram Stain - Final 11/25/21 09:30 Thoracentesis Fluid Anaerobic Culture - Final NO GROWTH AFTER 5 DAYS 11/25/21 09:30 Thoracentesis Fluid Body Fluid Culture - Final No growth after 2 days 11/25/21 15:30 Sputum - Suctioned Gram Stain - Final 11/25/21 15:30 Sputum - Suctioned Sputum Culture - Final 11/19/21 18:42 Blood - Venous Blood Culture - Final No growth after 5 days. 11/19/21 18:37 Blood - Venous Blood Culture - Final No growth after 5 days. 11/20/21 03:44 Sputum - Suctioned Gram Stain - Final 11/20/21 03:44 Sputum - Suctioned Sputum Culture - Final 11/20/21 Unknown Urine Catheterized - Turner Catheter Urine Culture - Final No growth. Procedures Date of Service Date of Service: 12/07/21 Assessment & Plan Assessment and plan (1) LEO (acute kidney injury): Status: Acute Assessment and Plan: pHas baseline CKD 3 with serum creatinine of 1.4 to 1.7 LEO due to tubular injury- resolved Urine output good ; D/Urban diuretics Renal functions fairly stable Continue rest of current supportive care Time Spent With Patient Time: Total time spent is greater than 50% in coordination of care (as documented) at patient's floor/unit and/or counseling patient: Progress Note: Quality Stroke Does the patient have a stroke diagnosis?: No
[2021-12-07 19:00] LABS: Glucose, Whole Blood 203 mg/dL (60-115)
[2021-12-07] MEDS: Insulin Glargine,Hum.rec.anlog 100 UNIT/ML 10 ML VIAL 25 UNIT SUBCUT (20:15)
[2021-12-07 23:57] LABS: Glucose, Whole Blood 145 mg/dL (60-115)
[2021-12-08] VITALS (31 sets, daily range): BP systolic 139–190; BP diastolic 64–89; PULSE 83–105; RESP 24–33; TEMP 36.6–37.4; O2SAT 89–100; BMI 52.7
[2021-12-08] MEDS: Metoprolol Tartrate 5 MG/5 ML VIAL IVPUSH ×4 (02:52→20:41)
[2021-12-08 05:17] LABS: VBG Base Excess -7.3 mmol/L; VBG HCO3 16 mmol/L (22-26); VBG pCO2 27 mmHg; VBG pH 7.37 (7.32-7.43); VBG pO2 53 mmHg
[2021-12-08 05:30] LABS: MANUAL DIFF FLAG NO
[2021-12-08 05:33] LABS: Basophils Absolute Auto 0.1 X10*3/uL (0.0-0.2); Basophils Percent Auto 0.7 % (0-2); Eosinophils Percent Auto 5.8 % (0-4); Hematocrit 38.1 % (37.0-47.0); Imm Gran Abs Auto 0.18 X10*3/uL (0.00-0.03); Lymphocytes Absolute Auto 1.7 X10*3/uL (1.2-4.9); Lymphocytes Percent Auto 9.8 % (20-40); Mean Corpuscular HGB Conc 28.9 g/dl (31.0-35.0); Mean Corpuscular Hemoglobin 25.1 pg (27.0-33.0); Mean Corpuscular Volume 86.8 fL (80.0-98.0); Mean Platelet Volume 12.1 fL (9.4-12.3); Monocytes Absolute Auto 1.1 X10*3/uL (0.1-1.2); Monocytes Percent Auto 6.4 % (2-11); Neutrophils Absolute Auto 13.5 x10*3/uL (2.0-8.3); Neutrophils Percent Auto 76.3 % (45-73); Platelet Count 336 X10*3/uL (160-400); Red Blood Count 4.39 X10*6/uL (4.20-5.50); Red Cell Distribution Width 19.1 % (11.0-16.0); White Blood Count 17.7 X10*3/uL (4.8-10.8)
[2021-12-08 05:57] LABS: Alanine Aminotransferase 90 U/L (0-31); Albumin Level 3.3 g/dL (3.5-5.0); Alkaline Phosphatase 79 U/L (39-117); Anion Gap 19 (12-20); Aspartate Amino Transferase 56 U/L (5-31); Bilirubin Total 0.5 mg/dL (0.0-1.0); Blood Urea Nitrogen 41 mg/dL (9-16); Calcium 8.3 mg/dL (8.4-10.2); Carbon Dioxide 19 mmol/L (22-29); Chloride 110 mmol/L (96-108); Creatinine Clr Calc Pharmacy 72.8; Estimated Glomerular Filt Rate 52; Glucose Random 251 mg/dL (60-115); Magnesium 2.5 mg/dL (1.6-2.6); Phosphorus 4.2 mg/dL (2.7-4.5); Potassium 5.4 mmol/L (3.3-5.1); Sodium 143 mmol/L (135-145); Total Protein 6.9 g/dL (6.5-8.0)
[2021-12-08 06:18] LABS: Glucose, Whole Blood 241 mg/dL (60-115)
[2021-12-08] MEDS: Insulin Lispro 100 UNIT/ML 3 ML VIAL SUBCUT ×2 (06:18→18:24)
[2021-12-08] MEDS: Heparin Sodium,Porcine 5,000 UNIT/ML VIAL 5000 UNIT SUBCUT ×3 (07:35→22:42)
[2021-12-08] MEDS: levoFLOXacin/D5W 250 MG/50 ML PIGGYBACK 50 MG IV (07:35)
[2021-12-08] MEDS: Albuterol/Iprat 2.5/0.5MG 3 ML AMPUL.NEB INHALE ×3 (07:53→19:31)
[2021-12-08] MEDS: Furosemide 40 MG/4 ML VIAL IVPUSH (08:45)
[2021-12-08] MEDS: levoFLOXacin/D5W 500 MG/100 ML PIGGYBACK 100 MG IV (08:46)
[2021-12-08 08:47] LABS: Glucose, Whole Blood 169 mg/dL (60-115)
[2021-12-08 09:16] LABS: Venous Blood Gas Refer to POC result
[2021-12-08] MEDS: Albumin Human 25 % 100 ML IV ×3 (09:54→20:36)
[2021-12-08] MEDS: Nystatin Powder 15 GM BOTTLE 1 APPL TOPICAL ×2 (10:06→20:41)
--- NOTE | 2021-12-08 10:35 | PM.PNNEP ---
Subjective Subjective Date of Service: 12/08/21 Interval history: On high flow O2; All recent events/data reviewed Physical Exam Vital Signs: Vital Signs: Last Vital Signs Temp 98.1 F 12/08/21 10:00 Pulse 91 12/08/21 10:00 Resp 26 H 12/08/21 10:00 BP 170/72 H 12/08/21 10:00 Pulse Ox 97 12/08/21 10:00 O2 Del Method 12/08/21 10:00 O2 Flow Rate 40 12/08/21 10:00 FiO2 35 12/08/21 10:00 Oxygen Flow Rate 25 12/07/21 07:00 BMI result Body Mass Index 52.7 Const: General: no acute distress Eyes: EOM: EOMs intact bilaterally Resp: Auscultation: diminished lung sounds Cardio: Rate: regular rate GI: Palpation (GI): Soft to palpation Neuro: General: moves all extremities Objective Data Labs CBC & Chem 7: 12/08/21 05:14 12/08/21 05:14 Labs: Laboratory Results - last 24 hr 12/07/21 12/07/21 12/07/21 11:34 18:57 23:47 WBC RBC Hgb Hct MCV MCH MCHC RDW Plt Count MPV Immature Gran % (Auto) Neut % (Auto) Lymph % (Auto) [place] % (Auto) Eos % (Auto) Baso % (Auto) Lymph # (Auto) [place] # (Auto) Eos # (Auto) Baso # (Auto) Abs Immat Gran (auto) Absolute Neuts (auto) Absolute Nucleated RBC Nucleated RBC % (auto) VBG pH VBG pCO2 VBG pO2 VBG HCO3 VBG O2 Saturation VBG Base Excess Sodium Potassium Chloride Carbon Dioxide Anion Gap BUN Creatinine Estim Creat Clear Calc Estimated GFR POC Glucose 190 H 203 H 145 H Random Glucose Calcium Phosphorus Magnesium Total Bilirubin AST ALT Alkaline Phosphatase Total Protein Albumin 12/08/21 12/08/21 12/08/21 05:12 05:14 05:14 WBC 17.7 H RBC 4.39 Hgb 11.0 L Hct 38.1 MCV 86.8 MCH 25.1 L MCHC 28.9 L RDW 19.1 H Plt Count 336 MPV 12.1 Immature Gran % (Auto) 1.0 H Neut % (Auto) 76.3 H Lymph % (Auto) 9.8 L [place] % (Auto) 6.4 Eos % (Auto) 5.8 H Baso % (Auto) 0.7 Lymph # (Auto) 1.7 [place] # (Auto) 1.1 Eos # (Auto) 1.0 H Baso # (Auto) 0.1 Abs Immat Gran (auto) 0.18 H Absolute Neuts (auto) 13.5 H Absolute Nucleated RBC 0.000 Nucleated RBC % (auto) 0.0 VBG pH 7.37 VBG pCO2 27 VBG pO2 53 VBG HCO3 16 L VBG O2 Saturation 82.0 VBG Base Excess -7.3 Sodium 143 Potassium 5.4 H D Chloride 110 H Carbon Dioxide 19 L Anion Gap 19 BUN 41 H Creatinine 1.04 Estim Creat Clear Calc 72.8 Estimated GFR 52 POC Glucose Random Glucose 251 H Calcium 8.3 L Phosphorus 4.2 Magnesium 2.5 Total Bilirubin 0.5 AST 56 H ALT 90 H Alkaline Phosphatase 79 D Total Protein 6.9 Albumin 3.3 L 12/08/21 12/08/21 06:15 08:44 WBC RBC Hgb Hct MCV MCH MCHC RDW Plt Count MPV Immature Gran % (Auto) Neut % (Auto) Lymph % (Auto) [place] % (Auto) Eos % (Auto) Baso % (Auto) Lymph # (Auto) [place] # (Auto) Eos # (Auto) Baso # (Auto) Abs Immat Gran (auto) Absolute Neuts (auto) Absolute Nucleated RBC Nucleated RBC % (auto) VBG pH VBG pCO2 VBG pO2 VBG HCO3 VBG O2 Saturation VBG Base Excess Sodium Potassium Chloride Carbon Dioxide Anion Gap BUN Creatinine Estim Creat Clear Calc Estimated GFR POC Glucose 241 H 169 H Random Glucose Calcium Phosphorus Magnesium Total Bilirubin AST ALT Alkaline Phosphatase Total Protein Albumin Microbiology Microbiology Results: Microbiology 12/03/21 09:08 Bronchial Washings Gram Stain - Final 12/03/21 09:08 Bronchial Washings - Final Klebsiella pneumoniae Oly dubliniensis 12/05/21 20:37 Blood - Venous Blood Culture - Preliminary No growth after 48 hours. 12/05/21 20:20 Blood - Venous Blood Culture - Preliminary No growth after 48 hours. 12/02/21 11:29 Blood - Venous Blood Culture - Final No growth after 5 days. 12/02/21 11:29 Blood - Venous Blood Culture - Final No growth after 5 days. 11/25/21 09:30 Pleural Fluid Fungal Identification - Preliminary No growth after 1 week. 11/29/21 22:29 Blood - Venous Blood Culture - Final No growth after 5 days. 12/02/21 12:24 Urine Catheterized - Turner Catheter Urine Culture - Final Klebsiella pneumoniae 12/02/21 12:24 Sputum - Suctioned Gram Stain - Final 12/02/21 12:24 Sputum - Suctioned Sputum Culture - Final Klebsiella pneumoniae 11/29/21 22:30 Sputum - Suctioned Gram Stain - Final 11/29/21 22:30 Sputum - Suctioned Sputum Culture - Final Klebsiella pneumoniae 11/27/21 13:49 Thoracentesis Fluid Gram Stain - Final 11/27/21 13:49 Thoracentesis Fluid Anaerobic Culture - Final NO GROWTH AFTER 5 DAYS 11/27/21 13:49 Thoracentesis Fluid Body Fluid Culture - Final No growth after 2 days 11/29/21 22:29 Blood - Venous Blood Culture - Final Coag negative Staphylococcus 11/29/21 22:31 Urine Catheterized - Turner Catheter Urine Culture - Final No growth. 11/25/21 14:57 Blood - Venous Blood Culture - Final No growth after 5 days. 11/25/21 14:57 Blood - Venous Blood Culture - Final No growth after 5 days. 11/25/21 09:30 Pleural Fluid Direct Acid Fast Bacilli Smear - Final 11/25/21 09:30 Thoracentesis Fluid Gram Stain - Final 11/25/21 09:30 Thoracentesis Fluid Anaerobic Culture - Final NO GROWTH AFTER 5 DAYS 11/25/21 09:30 Thoracentesis Fluid Body Fluid Culture - Final No growth after 2 days 11/25/21 15:30 Sputum - Suctioned Gram Stain - Final 11/25/21 15:30 Sputum - Suctioned Sputum Culture - Final 11/19/21 18:42 Blood - Venous Blood Culture - Final No growth after 5 days. 11/19/21 18:37 Blood - Venous Blood Culture - Final No growth after 5 days. 11/20/21 03:44 Sputum - Suctioned Gram Stain - Final 11/20/21 03:44 Sputum - Suctioned Sputum Culture - Final 11/20/21 Unknown Urine Catheterized - Turner Catheter Urine Culture - Final No growth. Procedures Date of Service Date of Service: 12/08/21 Assessment & Plan Assessment and plan (1) LEO (acute kidney injury): Status: Acute Assessment and Plan: pHas baseline CKD 3 with serum creatinine of 1.4 to 1.7 LEO due to tubular injury- resolved Urine output good Renal functions fairly stable Continue rest of current supportive care Time Spent With Patient Time: Total time spent is greater than 50% in coordination of care (as documented) at patient's floor/unit and/or counseling patient: Progress Note: Quality Stroke Does the patient have a stroke diagnosis?: No
[2021-12-08] MEDS: Spironolactone 25 MG TABLET PO (10:43)
--- NOTE | 2021-12-08 10:46 | P.PNCC_ITS ---
Subjective Subjective Date of Service: 12/08/21 Interval History: 71-year-old lady with underlying history of COPD, congestive heart failure, diabetes mellitus, CKD, hypertension, hypothyroidism, peripheral vascular disease, recent admission for COVID-19 approximately 1 months prior admitted on 11/19/2021 with dyspnea and hypoxia resistant to CPAP support requiring intubation and ventilatory support. CT chest with bilateral pleural effusions with compressive atelectasis. Treated for Klebsiella pneumonia/UTI and diuresed with slow improvement, complicated by LEO on CKD, also noted to have diffuse lymphadenopathy, now status post groin lymph node aspiration and EBUS aspiration of mediastinal lymph nodes with definite pathology still pending. Extubated 12/06/2021. No events overnight. FiO2 requirements continue to improve. Critical Care Time (minutes): 45 Physical Exam Vital Signs: Vital Signs: Last Vital Signs Temp 98.1 F 12/08/21 10:00 Pulse 91 12/08/21 10:00 Resp 26 H 12/08/21 10:00 BP 170/72 H 12/08/21 10:00 Pulse Ox 97 12/08/21 10:00 O2 Del Method 12/08/21 10:00 O2 Flow Rate 40 12/08/21 10:00 FiO2 35 12/08/21 10:00 Oxygen Flow Rate 25 12/07/21 07:00 BMI result Body Mass Index 52.7 Const: General: no acute distress, alert and awake Nutritional Appearance: obese Eyes: Sclerae: sclerae normal EOM: EOMs intact bilaterally Neck: Neck: Yes no lymphadenopathy, Yes trachea midline and Yes supple Resp: Effort & Inspection: normal respiratory effort and no respiratory distress Auscultation: crackles ( Bibasilar) Cardio: Rate: regular rate Rhythm: regular rhythm Heart sounds: no gallops, no murmurs and no rubs GI: Palpation (GI): Soft to palpation and Other GI palpation findings present ( Nontender) Auscultation: normal bowel sounds Extrem: General: No clubbing, No cyanosis and Yes edema ( trace bilateral) Objective Data Labs CBC & Chem 7: 12/08/21 05:14 12/08/21 05:14 Labs: Laboratory Results - last 24 hr 12/07/21 12/07/21 12/07/21 11:34 18:57 23:47 WBC RBC Hgb Hct MCV MCH MCHC RDW Plt Count MPV Immature Gran % (Auto) Neut % (Auto) Lymph % (Auto) [place] % (Auto) Eos % (Auto) Baso % (Auto) Lymph # (Auto) [place] # (Auto) Eos # (Auto) Baso # (Auto) Abs Immat Gran (auto) Absolute Neuts (auto) Absolute Nucleated RBC Nucleated RBC % (auto) VBG pH VBG pCO2 VBG pO2 VBG HCO3 VBG O2 Saturation VBG Base Excess Sodium Potassium Chloride Carbon Dioxide Anion Gap BUN Creatinine Estim Creat Clear Calc Estimated GFR POC Glucose 190 H 203 H 145 H Random Glucose Calcium Phosphorus Magnesium Total Bilirubin AST ALT Alkaline Phosphatase Total Protein Albumin 12/08/21 12/08/21 12/08/21 05:12 05:14 05:14 WBC 17.7 H RBC 4.39 Hgb 11.0 L Hct 38.1 MCV 86.8 MCH 25.1 L MCHC 28.9 L RDW 19.1 H Plt Count 336 MPV 12.1 Immature Gran % (Auto) 1.0 H Neut % (Auto) 76.3 H Lymph % (Auto) 9.8 L [place] % (Auto) 6.4 Eos % (Auto) 5.8 H Baso % (Auto) 0.7 Lymph # (Auto) 1.7 [place] # (Auto) 1.1 Eos # (Auto) 1.0 H Baso # (Auto) 0.1 Abs Immat Gran (auto) 0.18 H Absolute Neuts (auto) 13.5 H Absolute Nucleated RBC 0.000 Nucleated RBC % (auto) 0.0 VBG pH 7.37 VBG pCO2 27 VBG pO2 53 VBG HCO3 16 L VBG O2 Saturation 82.0 VBG Base Excess -7.3 Sodium 143 Potassium 5.4 H D Chloride 110 H Carbon Dioxide 19 L Anion Gap 19 BUN 41 H Creatinine 1.04 Estim Creat Clear Calc 72.8 Estimated GFR 52 POC Glucose Random Glucose 251 H Calcium 8.3 L Phosphorus 4.2 Magnesium 2.5 Total Bilirubin 0.5 AST 56 H ALT 90 H Alkaline Phosphatase 79 D Total Protein 6.9 Albumin 3.3 L 12/08/21 12/08/21 06:15 08:44 WBC RBC Hgb Hct MCV MCH MCHC RDW Plt Count MPV Immature Gran % (Auto) Neut % (Auto) Lymph % (Auto) [place] % (Auto) Eos % (Auto) Baso % (Auto) Lymph # (Auto) [place] # (Auto) Eos # (Auto) Baso # (Auto) Abs Immat Gran (auto) Absolute Neuts (auto) Absolute Nucleated RBC Nucleated RBC % (auto) VBG pH VBG pCO2 VBG pO2 VBG HCO3 VBG O2 Saturation VBG Base Excess Sodium Potassium Chloride Carbon Dioxide Anion Gap BUN Creatinine Estim Creat Clear Calc Estimated GFR POC Glucose 241 H 169 H Random Glucose Calcium Phosphorus Magnesium Total Bilirubin AST ALT Alkaline Phosphatase Total Protein Albumin Microbiology Microbiology Results: Microbiology 12/03/21 09:08 Bronchial Washings Gram Stain - Final 12/03/21 09:08 Bronchial Washings - Final Klebsiella pneumoniae Oly d[place]ensis 12/05/21 20:37 Blood - Venous Blood Culture - Preliminary No growth after 48 hours. 12/05/21 20:20 Blood - Venous Blood Culture - Preliminary No growth after 48 hours. 12/02/21 11:29 Blood - Venous Blood Culture - Final No growth after 5 days. 12/02/21 11:29 Blood - Venous Blood Culture - Final No growth after 5 days. 11/25/21 09:30 Pleural Fluid Fungal Identification - Preliminary No growth after 1 week. 11/29/21 22:29 Blood - Venous Blood Culture - Final No growth after 5 days. 12/02/21 12:24 Urine Catheterized - Turner Catheter Urine Culture - Final Klebsiella pneumoniae 12/02/21 12:24 Sputum - Suctioned Gram Stain - Final 12/02/21 12:24 Sputum - Suctioned Sputum Culture - Final Klebsiella pneumoniae 11/29/21 22:30 Sputum - Suctioned Gram Stain - Final 11/29/21 22:30 Sputum - Suctioned Sputum Culture - Final Klebsiella pneumoniae 11/27/21 13:49 Thoracentesis Fluid Gram Stain - Final 11/27/21 13:49 Thoracentesis Fluid Anaerobic Culture - Final NO GROWTH AFTER 5 DAYS 11/27/21 13:49 Thoracentesis Fluid Body Fluid Culture - Final No growth after 2 days 11/29/21 22:29 Blood - Venous Blood Culture - Final Coag negative Staphylococcus 11/29/21 22:31 Urine Catheterized - Turner Catheter Urine Culture - Final No growth. 11/25/21 14:57 Blood - Venous Blood Culture - Final No growth after 5 days. 11/25/21 14:57 Blood - Venous Blood Culture - Final No growth after 5 days. 11/25/21 09:30 Pleural Fluid Direct Acid Fast Bacilli Smear - Final 11/25/21 09:30 Thoracentesis Fluid Gram Stain - Final 11/25/21 09:30 Thoracentesis Fluid Anaerobic Culture - Final NO GROWTH AFTER 5 DAYS 11/25/21 09:30 Thoracentesis Fluid Body Fluid Culture - Final No growth after 2 days 11/25/21 15:30 Sputum - Suctioned Gram Stain - Final 11/25/21 15:30 Sputum - Suctioned Sputum Culture - Final 11/19/21 18:42 Blood - Venous Blood Culture - Final No growth after 5 days. 11/19/21 18:37 Blood - Venous Blood Culture - Final No growth after 5 days. 11/20/21 03:44 Sputum - Suctioned Gram Stain - Final 11/20/21 03:44 Sputum - Suctioned Sputum Culture - Final 11/20/21 Unknown Urine Catheterized - Turner Catheter Urine Culture - Final No growth. Progress Note: A&P Assessment and plan (1) Klebsiella pneumonia: Status: Acute (2) Urinary tract infection due to ESBL Klebsiella: Status: Acute (3) Lymphadenopathy, mediastinal: Status: Acute (4) Obesity: Status: Acute (5) Diabetes mellitus with insulin therapy: Status: Acute (6) Acute exacerbation of congestive heart failure: Status: Acute (7) Acute respiratory failure with hypoxia: Status: Acute Plan Assessment: 71-year-old lady with underlying obesity, COPD, CHF admitted with acute hypoxic respiratory failure secondary to congestive heart failure exacerbation and pneumonia, now requiring ventilatory support. Plan: Neuro: No acute issues. Cardiac: Exacerbation of underlying congestive heart failure, improving with diuresis. 2D echocardiogram with dilated left atrium /diastolic dysfunction. Pulmonary: Acute hypoxic respiratory failure secondary to exacerbation of underlying congestive heart failure and Klebsiella pneumonia contribution initially requiring ventilatory support, extubated 12/06/2021. Continues to improve slowly P Continue to titrate off supplemental oxygen support as tole rated. Renal: LEO on CKD likely secondary to CHF exacerbation. Non oliguric. Continue to monitor renal indices and urine output. Nephrology service care appreciated. Endo: No acute issues. Underlying diabetes mellitus. GI: No acute issues. ID: Klebsiella pneumonia and UTI, continues on Levaquin. Heme/Onc: Lymphadenopathy, pathology is pending. Psych: No acute issues. Miscellaneous: No acute issues. Prophylaxis: Heparin Diet: Pending swallow evaluation Critical care time spent: 45 minutes Quality Stroke Does the patient have a stroke diagnosis?: No VTE Prior VTE?: No VTE Risk Level:: Medical - moderate - high VTE Device Contraindication: Treatment Not Indicated VTE Drug Contraindication: N/A - Med Ordered
[2021-12-08 12:03] LABS: Glucose, Whole Blood 151 mg/dL (60-115)
--- NOTE | 2021-12-08 14:28 | HO.WOUNDCONS ---
History of Present Illness Data of Consult Service Date: 12/04/21 Requesting physician: Lisa Tesfaye Primary Care Provider: Tam Corea MD [facility] Reason for consult: buttock wounds The pt is a 71 year old female who has been here with long hopsitalization for Covid and dc and then came back in on 11/27 with resp failure/ pneumonia and intubated and brought to ICU. at time of admission review of skin she was noted to have some stage 1 skin breakdown at the buttocks area and one spot on the left with deep tissue injury. We are getting consulted because of this today. It seems like there has not been progression of this breakdown since admission. Pt is large, BMI 52 and vented so careful with repositioning and rotating. the wound has not progressed deeper or significantly larger [facility] Medical History (Updated 12/08/21 @ 14:35 by Tracey Vanessa MD) CKD (chronic kidney disease) Congestive heart failure COVID Diabetes mellitus with insulin therapy HLD (hyperlipidemia) HTN (hypertension) Hypothyroidism Infection with ESBL Klebsiella oxytoca Lower extremity edema Lymphadenopathy, mediastinal Migraine Obesity Pleural effusion Pseudotumor cerebri PVD (peripheral vascular disease) Family History Mother Heart attack, Onset Age: 92 Father Heart attack, Onset Age: 66 Other Diabetes Surgical History H/O cataract extraction H/O hysterectomy for benign disease Hx of cholecystectomy S/P appendectomy Social History Alcohol intake: never Patient Tobacco Use Status: Never used Tobacco Advance Directives Date on File: 09/26/20 service: No Current occupational status: disabled Meds Allergies Allergy/AdvReac Type Severity Reaction Status Date / Time oxycodone [From Percocet] Allergy Intermediate Rash Verified 11/19/21 17:16 Active Medications: Current Medications Acetaminophen (Acetaminophen Oral Liquid 650 Mg/20.3 Ml Solution) 650 mg PO Q6H PRN PRN Reason: Fever >101 Last Admin: 12/06/21 10:56 Dose: 650 mg Albuterol/Ipratropium (Albuterol/Iprat 2.5/0.5mg 3 Ml Ampul.Neb) 3 ml INHALE RQ4H WHILE AWAKE [facility] Last Admin: 12/08/21 11:50 Dose: 3 ml Dextrose (Dextrose 50 % 25 Gm/50 Ml Syringe) 25 gm IVPUSH Q15M PRN; Protocol PRN Reason: per Hypoglycemia Standing Ord. Last Admin: 12/01/21 19:53 Dose: 25 gm Heparin Sodium (Porcine) (Heparin Sodium,Porcine 5,000 Unit/Ml Vial) 5,000 unit SUBCUT Q8H ALAN Last Admin: 12/08/21 14:09 Dose: 5,000 unit Albumin Human (Kedbumin 25 %) 100 mls @ 100 mls/hr IV Q6H [facility] Stop: 12/09/21 03:14 Last Admin: 12/08/21 14:10 Dose: 100 mls/hr Levofloxacin (Levaquin) 750 mg in 150 mls @ 100 mls/hr IV Q24H [facility] Last Admin: 12/08/21 11:09 Dose: Not Given Insulin Human Lispro (Insulin Lispro 100 Unit/Ml 3 Ml Vial) 0 unit SUBCUT Q6H ALAN; Protocol Last Admin: 12/08/21 12:29 Dose: Not Given Metoprolol Tartrate (Metoprolol Tartrate 5 Mg/5 Ml Vial) 5 mg IVPUSH Q6H [facility] Last Admin: 12/08/21 14:09 Dose: 5 mg Naloxone HCl (Naloxone Hcl 0.4 Mg/Ml Vial) 0.2 mg IVPUSH Q2M PRN PRN Reason: Excessive sedation or RR < 8 Nystatin (Nystatin Powder 15 Gm Bottle) 1 appl TOPICAL BID [facility]; Protocol Last Admin: 12/08/21 10:06 Dose: 1 appl Spironolactone (Spironolactone 25 Mg Tablet) 25 mg PO DAILY [facility]; Protocol Last Admin: 12/08/21 10:43 Dose: 25 mg Home Medications Medication Instructions Recorded Confirmed Last Taken Type amitriptyline 50 mg tablet 25 mg PO DAILY 10/08/21 11/20/21 Unknown History aspirin 325 mg tablet 325 mg PO DAILY 10/08/21 11/20/21 Unknown History brinzolamide 1 %-brimonidine 0.2 % 1 drp ophthalmic-Right BID 10/08/21 11/20/21 Unknown History eye drops,suspension (Simbrinza) chlordiazepoxide HCl 10 mg capsule 10 mg PO BEDTIME 10/08/21 11/20/21 Unknown History citalopram 20 mg tablet 20 mg PO DAILY 10/08/21 11/20/21 Unknown History clonazepam 0.5 mg tablet 0.5 mg PO BID 10/08/21 11/20/21 Unknown History docusate sodium 100 mg tablet 100 mg PO DAILY 10/08/21 11/20/21 Unknown History furosemide 40 mg tablet 40 tab PO BID@0900,1800 10/08/21 11/20/21 Unknown History hydroxychloroquine 200 mg tablet 200 mg PO BID 10/08/21 11/20/21 Unknown History insulin glargine 100 unit/mL (3 80 unit subcut BEDTIME 10/08/21 11/20/21 Unknown History mL) subcutaneous pen (Lantus Solostar U-100 Insulin) insulin lispro protamine-lispro 7 - 15 ea subcut TIDAC 10/08/21 11/20/21 Unknown History 100 unit/mL (75-25) subcutaneous pen levothyroxine 175 mcg tablet 175 mcg PO DAILY@0600 10/08/21 11/20/21 Unknown History multivitamin 1 tab PO DAILY 10/08/21 11/20/21 Unknown History netarsudil 0.02 %-latanoprost 1 drp ophthalmic (eye) BEDTIME 10/08/21 11/20/21 Unknown History 0.005 % eye drops (Rocklatan) simvastatin 20 mg tablet 20 mg PO BEDTIME 10/08/21 11/20/21 Unknown History sitagliptin 100 mg tablet (Januvia) 100 mg PO DAILY 10/08/21 11/20/21 Unknown History latanoprost 0.005 % eye drops 1 drp ophthalmic (eye) BEDTIME 11/20/21 11/20/21 Unknown History prednisolone ophthalmic-Right 1XD 12/07/21 Unknown History timolol drp ophthalmic (eye) 2XD 12/07/21 Unknown History Physical Exam Vital Signs and Narrative: Vital Signs: Last Vital Signs Temp 98.6 F 12/08/21 13:00 Pulse 92 12/08/21 14:00 Resp 29 H 12/08/21 14:00 BP 167/68 H 12/08/21 14:00 Pulse Ox 96 12/08/21 14:00 O2 Del Method 12/08/21 14:00 O2 Flow Rate 3 12/08/21 14:00 FiO2 35 12/08/21 13:00 Oxygen Flow Rate 25 12/07/21 07:00 BMI result Body Mass Index 52.7 Skin: Other: pt is intubated and in ICU and nursing team and i reviewed pics of her skin breakdown. bilateral buttocks have some skin sloughing into dermal aspect so stage 1/2 at very most. there is an area of bruising and dusky tissue which seems stable which is along a pressure area on the left which could be more likely with DTI if the pt had been spending more time sitting up before coming into the hospital. pt is intubated and unable to give history Results Labs CBC and Chem 7: 12/08/21 05:14 12/08/21 05:14 Labs: Laboratory Results - last 24 hr 12/07/21 12/07/21 12/08/21 18:57 23:47 05:12 MCV MCH MCHC RDW Plt Count MPV Immature Gran % (Auto) Neut % (Auto) Lymph % (Auto) [place] % (Auto) Eos % (Auto) Baso % (Auto) Lymph # (Auto) [place] # (Auto) Eos # (Auto) Baso # (Auto) Abs Immat Gran (auto) Absolute Neuts (auto) Absolute Nucleated RBC Nucleated RBC % (auto) VBG pH 7.37 VBG pCO2 27 VBG pO2 53 VBG HCO3 16 L VBG O2 Saturation 82.0 VBG Base Excess -7.3 Anion Gap Estim Creat Clear Calc Estimated GFR POC Glucose 203 H 145 H Random Glucose Calcium Phosphorus Magnesium Total Bilirubin AST ALT Alkaline Phosphatase Total Protein Albumin 12/08/21 12/08/21 12/08/21 05:14 05:14 06:15 MCV 86.8 MCH 25.1 L MCHC 28.9 L RDW 19.1 H Plt Count 336 MPV 12.1 Immature Gran % (Auto) 1.0 H Neut % (Auto) 76.3 H Lymph % (Auto) 9.8 L [place] % (Auto) 6.4 Eos % (Auto) 5.8 H Baso % (Auto) 0.7 Lymph # (Auto) 1.7 [place] # (Auto) 1.1 Eos # (Auto) 1.0 H Baso # (Auto) 0.1 Abs Immat Gran (auto) 0.18 H Absolute Neuts (auto) 13.5 H Absolute Nucleated RBC 0.000 Nucleated RBC % (auto) 0.0 VBG pH VBG pCO2 VBG pO2 VBG HCO3 VBG O2 Saturation VBG Base Excess Anion Gap 19 Estim Creat Clear Calc 72.8 Estimated GFR 52 POC Glucose 241 H Random Glucose 251 H Calcium 8.3 L Phosphorus 4.2 Magnesium 2.5 Total Bilirubin 0.5 AST 56 H ALT 90 H Alkaline Phosphatase 79 D Total Protein 6.9 Albumin 3.3 L 12/08/21 12/08/21 08:44 11:59 MCV MCH MCHC RDW Plt Count MPV Immature Gran % (Auto) Neut % (Auto) Lymph % (Auto) [place] % (Auto) Eos % (Auto) Baso % (Auto) Lymph # (Auto) [place] # (Auto) Eos # (Auto) Baso # (Auto) Abs Immat Gran (auto) Absolute Neuts (auto) Absolute Nucleated RBC Nucleated RBC % (auto) VBG pH VBG pCO2 VBG pO2 VBG HCO3 VBG O2 Saturation VBG Base Excess Anion Gap Estim Creat Clear Calc Estimated GFR POC Glucose 169 H 151 H Random Glucose Calcium Phosphorus Magnesium Total Bilirubin AST ALT Alkaline Phosphatase Total Protein Albumin Imaging Radiologist's Impressions: Impressions Chest X-Ray 12/08/21 06:46 IMPRESSION: Stable chest x-ray exam with enlargement of the cardiac silhouette, left lung volume loss, bilateral airspace disease and pleural effusions. Assessment and Plan (1) Suspected deep tissue injury: Status: Acute Plan 71 year old morbidly obese female with resp oxygenation.ventialation issues known to us and had recent long hospitalization came back to hospital few days ago with buttock area wounds consistent with Stage 1/2 and deep tissue injury. From reports it seems like this area has not changed and was present on admission. ICU team already taking time to offload and rotate as much as possible, special mattress. Barrier cream to open areas but not necessarily the DTI area. Discussed with ICU nursing team
--- NOTE | 2021-12-08 17:10 | MHC.SL.SWA ---
Speech Pathologist Impression: Risk of Aspiration Due to: Medically Fragile History of Pneumonia Hx of Recent Extubation Dysphasia Diet Status: Liquid Consistency and Strategies for Safe Swallow: Liquid Intake Recommendation: [place] Thick Liquid Intake Strategies: By Tsp Solid Food Consistency: Dietary Recommendations: Pureed (NDD1) Additional Modifications to Solid Foods: Patient will need 1-1 feed, slower pace of feeding/ingestion, close monitor for signs of aspiration, sustaining O2 saturation during meal. Oral Medication Intake: Crushed with Puree Please contact the pharmacy regarding appropriate crushable or liquid drug formulations that are available whenever modified delivery is recommended. Compensatory Strategies and Precautions to be Taken for Safe Swallow: Sitting Upright (90 deg) Liquids from Spoon Small Bites and Sips Alternate Liquids/Solids Rate of Ingestion Change Supervision While Eating and Drinking for Safe Swallow: Total Assistance (1:1) Foods to Avoid: Mixed consistencies: Blend sauces or gravies into puree well. Swallowing Recommended Treatments: Compens. Strategy Educat. Recommendation for Speech: Inpatient Speech Therapy Comment: Pt presents with oral phase dysphagia characterized by edentulous state and disorganized oral management of liquid and solid bolus, with clinical signs of aspiration noted on thin liquid after repeat presentations. Recommend START diet of PUREE with NECTAR Thick Liquids, with PILLS CRUSHED in PUREE. Patient will require 1-1 feed, liquids by tsp only, close monitor for signs of aspiration and maintenance of O2 sats while eating. DOCUMENT RESTORER will continue to follow, re-assess swallow, toleration of diet, and advance diet as warranted. MD, Nursing advised of recommendations in person. Patient expressed multiple aversions to foods and liquids, may be resistant to food/consistencies offered. Frequency/Duration: Date Range for Service Req: Timeline to reassess: Matrix Worker Clinican/Clinical Fellow: No Supervisory Statement: I have reviewed and agree with the student/clinical fellow's documentation: N/A Speech Language Pathologist: Vaishnavi Philip M.A., CCC-DOCUMENT RESTORER
[2021-12-08 17:44] LABS: Glucose, Whole Blood 233 mg/dL (60-115)
--- NOTE | 2021-12-08 18:33 | PC.NURSE ---
pt advanced to puree diet and nectar thick liquids. both were well tolerated, though patient only ate approx 10% of dinner.
[2021-12-08 19:09] LABS: Anion Gap 23 (12-20); Blood Urea Nitrogen 37 mg/dL (9-16); Calcium 8.2 mg/dL (8.4-10.2); Carbon Dioxide 17 mmol/L (22-29); Chloride 110 mmol/L (96-108); Creatinine Clr Calc Pharmacy 73.6; Estimated Glomerular Filt Rate 53; Glucose Random 268 mg/dL (60-115); Potassium 5.6 mmol/L (3.3-5.1); Sodium 144 mmol/L (135-145)
[2021-12-09] VITALS (15 sets, daily range): BP systolic 150–200; BP diastolic 68–95; PULSE 92–109; RESP 16–37; TEMP 35.9–37.4; O2SAT 92–99; BMI 52.7
[2021-12-09 00:39] LABS: Glucose, Whole Blood 191 mg/dL (60-115)
[2021-12-09] MEDS: Insulin Lispro 100 UNIT/ML 3 ML VIAL SUBCUT ×5 (00:47→20:47)
[2021-12-09] MEDS: Albumin Human 25 % 100 ML IV (01:31)
[2021-12-09] MEDS: Metoprolol Tartrate 5 MG/5 ML VIAL IVPUSH (01:31)
[2021-12-09 05:12] LABS: VBG Base Excess -2.1 mmol/L; VBG HCO3 20 mmol/L (22-26); VBG pCO2 27 mmHg; VBG pH 7.47 (7.32-7.43); VBG pO2 70 mmHg
[2021-12-09 05:22] LABS: MANUAL DIFF FLAG NO
[2021-12-09 05:24] LABS: Basophils Absolute Auto 0.1 X10*3/uL (0.0-0.2); Basophils Percent Auto 0.5 % (0-2); Eosinophils Absolute Auto 0.7 X10*3/uL (0.0-0.4); Hematocrit 33.6 % (37.0-47.0); Hemoglobin 10.3 g/dl (12.0-16.0); Imm Gran Abs Auto 0.15 X10*3/uL (0.00-0.03); Lymphocytes Absolute Auto 2.1 X10*3/uL (1.2-4.9); Lymphocytes Percent Auto 14.4 % (20-40); Mean Corpuscular HGB Conc 30.7 g/dl (31.0-35.0); Mean Corpuscular Hemoglobin 25.4 pg (27.0-33.0); Mean Platelet Volume 11.5 fL (9.4-12.3); Monocytes Percent Auto 6.7 % (2-11); Neutrophils Absolute Auto 10.8 x10*3/uL (2.0-8.3); Neutrophils Percent Auto 72.4 % (45-73); Platelet Count 306 X10*3/uL (160-400); Red Blood Count 4.05 X10*6/uL (4.20-5.50); Red Cell Distribution Width 18.8 % (11.0-16.0); White Blood Count 14.9 X10*3/uL (4.8-10.8)
[2021-12-09 06:06] LABS: Glucose, Whole Blood 168 mg/dL (60-115)
[2021-12-09 06:12] LABS: Albumin Level 4.2 g/dL (3.5-5.0); Anion Gap 17 (12-20); Blood Urea Nitrogen 31 mg/dL (9-16); Calcium 8.8 mg/dL (8.4-10.2); Carbon Dioxide 24 mmol/L (22-29); Chloride 112 mmol/L (96-108); Creatinine Clr Calc Pharmacy 84.2; Estimated Glomerular Filt Rate > 60; Glucose Random 175 mg/dL (60-115); Magnesium 2.2 mg/dL (1.6-2.6); Phosphorus 2.9 mg/dL (2.7-4.5); Potassium 3.6 mmol/L (3.3-5.1); Sodium 149 mmol/L (135-145)
[2021-12-09] MEDS: Heparin Sodium,Porcine 5,000 UNIT/ML VIAL 5000 UNIT SUBCUT ×2 (06:30→14:01)
[2021-12-09 06:38] LABS: Venous Blood Gas Refer to POC result
[2021-12-09] MEDS: Albuterol/Iprat 2.5/0.5MG 3 ML AMPUL.NEB INHALE (08:16)
[2021-12-09] MEDS: Furosemide 40 MG TABLET PO ×2 (09:07→18:32)
[2021-12-09] MEDS: Metoprolol Succinate ER 100 MG TAB.ER.24H PO (09:07)
[2021-12-09] MEDS: levoFLOXacin/D5W 750 MG/150 ML PIGGYBACK 100 MG IV (09:08)
--- NOTE | 2021-12-09 10:35 | MHC.CLN ---
F/U PO INTAKE 10% X 1 MEAL DIET RX: 2200DM PUREED WITH NT LIQ-APPROPRIATE RECOMMEND ADDING GLUCERNA SUPPLEMENTS BID TO INCREASE KCALS AND PROMOTE WOUND HEALING SUPP TO PROVIDE 474KCALS, 20G PROTEIN MONITOR PO INTAKE CLOSELY
--- NOTE | 2021-12-09 10:54 | MHC.SL.SWA ---
Speech Pathologist Impression: Risk of Aspiration Due to: Medically Fragile History of Pneumonia Hx of Recent Extubation Dysphasia Diet Status: Recommend upgrade to Ground/Mechanical Altered with THIN liquids, pills whole in puree or with liquid, with close monitor that patient is not pocketing pills. Patient needs ample encouragement to eat, will likely initially refuse all offers of food. Patient prefers liquid by straw, on multiple trials, patient demonstrated no clinical signs of aspiration when drinking with straw. Liquid Consistency and Strategies for Safe Swallow: Liquid Intake Recommendation: Thin Liquid Intake Strategies: Small Sips Solid Food Consistency: Dietary Recommendations: Grnd/Mech Altered (NDD2) Additional Modifications to Solid Foods: Patient required 1-1 feed. Assure that patient has swallowed and is not pocketing food, before presenting additional food, alternate liquids and solids. Oral Medication Intake: Whole in puree or with liquid. Please contact the pharmacy regarding appropriate crushable or liquid drug formulations that are available whenever modified delivery is recommended. Compensatory Strategies and Precautions to be Taken for Safe Swallow: Sitting Upright (90 deg) Liquids from Straw Small Bites and Sips Alternate Liquids/Solids Rate of Ingestion Change Oral Check Supervision While Eating and Drinking for Safe Swallow: Total Assistance (1:1) Foods to Avoid: Mixed consistencies: Blend sauces or gravies into ground food well. Swallowing Recommended Treatments: Compens. Strategy Educat. Recommendation for Speech: Inpatient Speech Therapy Comment: PPatient seen this a.m. in ICU, seated in specialized chair by bed. Nursing informed me that Patient had refused all at breakfast, and nursing about to administer meds. Began sessions with trials of thin liquid/water which patient accepted. On tsp, cup sip and straw sip of water, patient evidenced a mildly disorganized oral phase (e.g. held liquid in mouth, or swished it) before initiating a timely swallow with no signs of aspiration. Patient was additionally given Cecelia Princess by straw during session to assist with swallowing pill, and again no clinical signs of aspiration. Patient has a preference for taking liquids by straw. However, re: med administration, patient pocketed pill administered in puree for prolonged period, even after repeated boluses of liquid. Patient swallowed pill only after being directly cued by nurse to move it back on her tongue. Patient refused all offered puree and solids available in ICU, HOUSE WIRER retrieved a banana to trial a soft solid, which patient accepted. On pieces of banana, patient produced a prolonged period of mastication, mildly disorganized oral movement during prolonged oral phase, then produced timely swallow, with mild oral residual cleared by sip of liquid. Recommend upgrade to Ground/Mechanical Altered with THIN liquids, pills whole in puree or with liquid, with close monitor that patient is not pocketing pills. Patient needs ample encouragement to eat, will likely initially refuse all offers of food. Frequency/Duration: Date Range for Service Req: Timeline to reassess: Photographic Hand Developer Clinican/Clinical Fellow: No Supervisory Statement: I have reviewed and agree with the student/clinical fellow's documentation: N/A Speech Language Pathologist: Vaishnavi Philip M.A., CCC-HOUSE WIRER
--- NOTE | 2021-12-09 11:08 | PM.PNNEP ---
Subjective Subjective Date of Service: 12/09/21 Interval history: Events noted. All recent data reviewed. Physical Exam Vital Signs: Vital Signs: Last Vital Signs Temp 97.4 F 12/09/21 10:00 Pulse 95 12/09/21 10:00 Resp 19 12/09/21 10:00 BP 200/89 H 12/09/21 10:00 Pulse Ox 99 12/09/21 10:00 O2 Del Method 12/09/21 10:00 O2 Flow Rate 2 12/09/21 10:00 FiO2 35 12/08/21 13:00 Oxygen Flow Rate 2 12/09/21 07:00 BMI result Body Mass Index 52.7 Const: General: no acute distress Eyes: EOM: EOMs intact bilaterally Resp: Auscultation: diminished lung sounds Cardio: Rate: regular rate GI: Palpation (GI): Soft to palpation Skin: General skin exam: no rashes or lesions noted Objective Data Labs CBC & Chem 7: 12/09/21 05:08 12/09/21 05:08 Labs: Laboratory Results - last 24 hr 12/08/21 12/08/21 12/08/21 11:59 17:40 18:26 WBC RBC Hgb Hct MCV MCH MCHC RDW Plt Count MPV Immature Gran % (Auto) Neut % (Auto) Lymph % (Auto) [place] % (Auto) Eos % (Auto) Baso % (Auto) Lymph # (Auto) [place] # (Auto) Eos # (Auto) Baso # (Auto) Abs Immat Gran (auto) Absolute Neuts (auto) Absolute Nucleated RBC Nucleated RBC % (auto) VBG pH VBG pCO2 VBG pO2 VBG HCO3 VBG O2 Saturation VBG Base Excess Sodium 144 Potassium 5.6 H Chloride 110 H Carbon Dioxide 17 L Anion Gap 23 H BUN 37 H Creatinine 1.03 Estim Creat Clear Calc 73.6 Estimated GFR 53 POC Glucose 151 H 233 H Random Glucose 268 H Calcium 8.2 L Phosphorus Magnesium Albumin 12/09/21 12/09/21 12/09/21 00:17 05:07 05:08 WBC 14.9 H RBC 4.05 L Hgb 10.3 L Hct 33.6 L MCV 83.0 MCH 25.4 L MCHC 30.7 L RDW 18.8 H Plt Count 306 MPV 11.5 Immature Gran % (Auto) 1.0 H Neut % (Auto) 72.4 Lymph % (Auto) 14.4 L [place] % (Auto) 6.7 Eos % (Auto) 5.0 H Baso % (Auto) 0.5 Lymph # (Auto) 2.1 [place] # (Auto) 1.0 Eos # (Auto) 0.7 H Baso # (Auto) 0.1 Abs Immat Gran (auto) 0.15 H Absolute Neuts (auto) 10.8 H Absolute Nucleated RBC 0.000 Nucleated RBC % (auto) 0.0 VBG pH 7.47 H VBG pCO2 27 VBG pO2 70 VBG HCO3 20 L VBG O2 Saturation 94.0 VBG Base Excess -2.1 Sodium Potassium Chloride Carbon Dioxide Anion Gap BUN Creatinine Estim Creat Clear Calc Estimated GFR POC Glucose 191 H Random Glucose Calcium Phosphorus Magnesium Albumin 12/09/21 12/09/21 05:08 06:02 WBC RBC Hgb Hct MCV MCH MCHC RDW Plt Count MPV Immature Gran % (Auto) Neut % (Auto) Lymph % (Auto) [place] % (Auto) Eos % (Auto) Baso % (Auto) Lymph # (Auto) [place] # (Auto) Eos # (Auto) Baso # (Auto) Abs Immat Gran (auto) Absolute Neuts (auto) Absolute Nucleated RBC Nucleated RBC % (auto) VBG pH VBG pCO2 VBG pO2 VBG HCO3 VBG O2 Saturation VBG Base Excess Sodium 149 H Potassium 3.6 D Chloride 112 H Carbon Dioxide 24 Anion Gap 17 BUN 31 H Creatinine 0.90 Estim Creat Clear Calc 84.2 Estimated GFR > 60 POC Glucose 168 H Random Glucose 175 H Calcium 8.8 D Phosphorus 2.9 Magnesium 2.2 Albumin 4.2 D Microbiology Microbiology Results: Microbiology 12/03/21 09:08 Bronchial Washings Gram Stain - Final 12/03/21 09:08 Bronchial Washings - Final Klebsiella pneumoniae Oly dubliniensis 12/05/21 20:37 Blood - Venous Blood Culture - Preliminary No growth after 48 hours. 12/05/21 20:20 Blood - Venous Blood Culture - Preliminary No growth after 48 hours. 12/02/21 11:29 Blood - Venous Blood Culture - Final No growth after 5 days. 12/02/21 11:29 Blood - Venous Blood Culture - Final No growth after 5 days. 11/25/21 09:30 Pleural Fluid Fungal Identification - Preliminary No growth after 1 week. 11/29/21 22:29 Blood - Venous Blood Culture - Final No growth after 5 days. 12/02/21 12:24 Urine Catheterized - Turner Catheter Urine Culture - Final Klebsiella pneumoniae 12/02/21 12:24 Sputum - Suctioned Gram Stain - Final 12/02/21 12:24 Sputum - Suctioned Sputum Culture - Final Klebsiella pneumoniae 11/29/21 22:30 Sputum - Suctioned Gram Stain - Final 11/29/21 22:30 Sputum - Suctioned Sputum Culture - Final Klebsiella pneumoniae 11/27/21 13:49 Thoracentesis Fluid Gram Stain - Final 11/27/21 13:49 Thoracentesis Fluid Anaerobic Culture - Final NO GROWTH AFTER 5 DAYS 11/27/21 13:49 Thoracentesis Fluid Body Fluid Culture - Final No growth after 2 days 11/29/21 22:29 Blood - Venous Blood Culture - Final Coag negative Staphylococcus 11/29/21 22:31 Urine Catheterized - Turner Catheter Urine Culture - Final No growth. 11/25/21 14:57 Blood - Venous Blood Culture - Final No growth after 5 days. 11/25/21 14:57 Blood - Venous Blood Culture - Final No growth after 5 days. 11/25/21 09:30 Pleural Fluid Direct Acid Fast Bacilli Smear - Final 11/25/21 09:30 Thoracentesis Fluid Gram Stain - Final 11/25/21 09:30 Thoracentesis Fluid Anaerobic Culture - Final NO GROWTH AFTER 5 DAYS 11/25/21 09:30 Thoracentesis Fluid Body Fluid Culture - Final No growth after 2 days 11/25/21 15:30 Sputum - Suctioned Gram Stain - Final 11/25/21 15:30 Sputum - Suctioned Sputum Culture - Final 11/19/21 18:42 Blood - Venous Blood Culture - Final No growth after 5 days. 11/19/21 18:37 Blood - Venous Blood Culture - Final No growth after 5 days. 11/20/21 03:44 Sputum - Suctioned Gram Stain - Final 11/20/21 03:44 Sputum - Suctioned Sputum Culture - Final 11/20/21 Unknown Urine Catheterized - Turner Catheter Urine Culture - Final No growth. Procedures Date of Service Date of Service: 12/09/21 Assessment & Plan Assessment and plan (1) LEO (acute kidney injury): Status: Acute Assessment and Plan: Has baseline CKD 3 with serum creatinine of 1.4 to 1.7 LEO due to tubular injury- resolved Urine output good Renal functions fairly stable Hypernatremic- Needs Free water Continue rest of current supportive care Time Spent With Patient Time: Total time spent is greater than 50% in coordination of care (as documented) at patient's floor/unit and/or counseling patient: Progress Note: Quality Stroke Does the patient have a stroke diagnosis?: No
[2021-12-09 11:24] LABS: Glucose, Whole Blood 204 mg/dL (60-115)
--- NOTE | 2021-12-09 13:13 | PM.CCPN ---
Subjective Subjective Date of Service: 12/09/21 Interval History: 71-year-old lady with underlying history of COPD, congestive heart failure, diabetes mellitus, CKD, hypertension, hypothyroidism, peripheral vascular disease, recent admission for COVID-19 approximately 1 months prior admitted on 11/19/2021 with dyspnea and hypoxia resistant to CPAP support requiring intubation and ventilatory support. CT chest with bilateral pleural effusions with compressive atelectasis. Treated for Klebsiella pneumonia/UTI and diuresed with slow improvement, complicated by LEO on CKD, also noted to have diffuse lymphadenopathy, now status post groin lymph node aspiration and EBUS aspiration of mediastinal lymph nodes with definite pathology still pending. Extubated 12/06/2021. No events overnight. FiO2 requirements continue to improve. Passed swallow evaluation. Critical Care Time (minutes): 0 Physical Exam Vital Signs: Vital Signs: Last Vital Signs Temp 97.4 F 12/09/21 10:00 Pulse 95 12/09/21 10:00 Resp 19 12/09/21 10:00 BP 200/89 H 12/09/21 10:00 Pulse Ox 99 12/09/21 10:00 O2 Del Method 12/09/21 10:00 O2 Flow Rate 2 12/09/21 10:00 FiO2 35 12/08/21 13:00 Oxygen Flow Rate 2 12/09/21 07:00 BMI result Body Mass Index 52.7 Const: General: no acute distress, alert and awake Nutritional Appearance: obese Eyes: Sclerae: sclerae normal EOM: EOMs intact bilaterally Neck: Neck: Yes no lymphadenopathy, Yes trachea midline and Yes supple Resp: Effort & Inspection: normal respiratory effort and no respiratory distress Auscultation: crackles (Bibasilar) Cardio: Rate: regular rate Rhythm: regular rhythm Heart sounds: no gallops, no murmurs and no rubs GI: Palpation (GI): Soft to palpation and Other GI palpation findings present ( Nontender) Auscultation: normal bowel sounds Extrem: General: No clubbing, No cyanosis and Yes edema (Trace bilateral) Objective Data Labs CBC & Chem 7: 12/09/21 05:08 12/09/21 05:08 Labs: Laboratory Results - last 24 hr 12/08/21 12/08/21 12/09/21 17:40 18:26 00:17 WBC RBC Hgb Hct MCV MCH MCHC RDW Plt Count MPV Immature Gran % (Auto) Neut % (Auto) Lymph % (Auto) [place] % (Auto) Eos % (Auto) Baso % (Auto) Lymph # (Auto) [place] # (Auto) Eos # (Auto) Baso # (Auto) Abs Immat Gran (auto) Absolute Neuts (auto) Absolute Nucleated RBC Nucleated RBC % (auto) VBG pH VBG pCO2 VBG pO2 VBG HCO3 VBG O2 Saturation VBG Base Excess Sodium 144 Potassium 5.6 H Chloride 110 H Carbon Dioxide 17 L Anion Gap 23 H BUN 37 H Creatinine 1.03 Estim Creat Clear Calc 73.6 Estimated GFR 53 POC Glucose 233 H 191 H Random Glucose 268 H Calcium 8.2 L Phosphorus Magnesium Albumin 12/09/21 12/09/21 12/09/21 05:07 05:08 05:08 WBC 14.9 H RBC 4.05 L Hgb 10.3 L Hct 33.6 L MCV 83.0 MCH 25.4 L MCHC 30.7 L RDW 18.8 H Plt Count 306 MPV 11.5 Immature Gran % (Auto) 1.0 H Neut % (Auto) 72.4 Lymph % (Auto) 14.4 L [place] % (Auto) 6.7 Eos % (Auto) 5.0 H Baso % (Auto) 0.5 Lymph # (Auto) 2.1 [place] # (Auto) 1.0 Eos # (Auto) 0.7 H Baso # (Auto) 0.1 Abs Immat Gran (auto) 0.15 H Absolute Neuts (auto) 10.8 H Absolute Nucleated RBC 0.000 Nucleated RBC % (auto) 0.0 VBG pH 7.47 H VBG pCO2 27 VBG pO2 70 VBG HCO3 20 L VBG O2 Saturation 94.0 VBG Base Excess -2.1 Sodium 149 H Potassium 3.6 D Chloride 112 H Carbon Dioxide 24 Anion Gap 17 BUN 31 H Creatinine 0.90 Estim Creat Clear Calc 84.2 Estimated GFR > 60 POC Glucose Random Glucose 175 H Calcium 8.8 D Phosphorus 2.9 Magnesium 2.2 Albumin 4.2 D 12/09/21 12/09/21 06:02 11:21 WBC RBC Hgb Hct MCV MCH MCHC RDW Plt Count MPV Immature Gran % (Auto) Neut % (Auto) Lymph % (Auto) [place] % (Auto) Eos % (Auto) Baso % (Auto) Lymph # (Auto) [place] # (Auto) Eos # (Auto) Baso # (Auto) Abs Immat Gran (auto) Absolute Neuts (auto) Absolute Nucleated RBC Nucleated RBC % (auto) VBG pH VBG pCO2 VBG pO2 VBG HCO3 VBG O2 Saturation VBG Base Excess Sodium Potassium Chloride Carbon Dioxide Anion Gap BUN Creatinine Estim Creat Clear Calc Estimated GFR POC Glucose 168 H 204 H Random Glucose Calcium Phosphorus Magnesium Albumin Microbiology Microbiology Results: Microbiology 12/03/21 09:08 Bronchial Washings Gram Stain - Final 12/03/21 09:08 Bronchial Washings - Final Klebsiella pneumoniae Oly dubliniensis 12/05/21 20:37 Blood - Venous Blood Culture - Preliminary No growth after 48 hours. 12/05/21 20:20 Blood - Venous Blood Culture - Preliminary No growth after 48 hours. 12/02/21 11:29 Blood - Venous Blood Culture - Final No growth after 5 days. 12/02/21 11:29 Blood - Venous Blood Culture - Final No growth after 5 days. 11/25/21 09:30 Pleural Fluid Fungal Identification - Preliminary No growth after 1 week. 11/29/21 22:29 Blood - Venous Blood Culture - Final No growth after 5 days. 12/02/21 12:24 Urine Catheterized - Turner Catheter Urine Culture - Final Klebsiella pneumoniae 12/02/21 12:24 Sputum - Suctioned Gram Stain - Final 12/02/21 12:24 Sputum - Suctioned Sputum Culture - Final Klebsiella pneumoniae 11/29/21 22:30 Sputum - Suctioned Gram Stain - Final 11/29/21 22:30 Sputum - Suctioned Sputum Culture - Final Klebsiella pneumoniae 11/27/21 13:49 Thoracentesis Fluid Gram Stain - Final 11/27/21 13:49 Thoracentesis Fluid Anaerobic Culture - Final NO GROWTH AFTER 5 DAYS 11/27/21 13:49 Thoracentesis Fluid Body Fluid Culture - Final No growth after 2 days 11/29/21 22:29 Blood - Venous Blood Culture - Final Coag negative Staphylococcus 11/29/21 22:31 Urine Catheterized - Turner Catheter Urine Culture - Final No growth. 11/25/21 14:57 Blood - Venous Blood Culture - Final No growth after 5 days. 11/25/21 14:57 Blood - Venous Blood Culture - Final No growth after 5 days. 11/25/21 09:30 Pleural Fluid Direct Acid Fast Bacilli Smear - Final 11/25/21 09:30 Thoracentesis Fluid Gram Stain - Final 11/25/21 09:30 Thoracentesis Fluid Anaerobic Culture - Final NO GROWTH AFTER 5 DAYS 11/25/21 09:30 Thoracentesis Fluid Body Fluid Culture - Final No growth after 2 days 11/25/21 15:30 Sputum - Suctioned Gram Stain - Final 11/25/21 15:30 Sputum - Suctioned Sputum Culture - Final 11/19/21 18:42 Blood - Venous Blood Culture - Final No growth after 5 days. 11/19/21 18:37 Blood - Venous Blood Culture - Final No growth after 5 days. 11/20/21 03:44 Sputum - Suctioned Gram Stain - Final 11/20/21 03:44 Sputum - Suctioned Sputum Culture - Final 11/20/21 Unknown Urine Catheterized - Turner Catheter Urine Culture - Final No growth. Progress Note: A&P Assessment and plan (1) Klebsiella pneumonia: Status: Acute (2) Urinary tract infection due to ESBL Klebsiella: Status: Acute (3) Lymphadenopathy, mediastinal: Status: Acute (4) Respiratory failure: Status: Acute (5) Diabetes mellitus with insulin therapy: Status: Acute (6) Acute exacerbation of congestive heart failure: Status: Acute Plan Assessment: 71-year-old lady with underlying obesity, COPD, CHF admitted with acute hypoxic respiratory failure secondary to congestive heart failure exacerbation and pneumonia, now requiring ventilatory support. Plan: Neuro: No acute issues. Cardiac: Exacerbation of underlying congestive heart failure, improving with diuresis. 2D echocardiogram with dilated left atrium /diastolic dysfunction. Pulmonary: Acute hypoxic respiratory failure secondary to exacerbation of underlying congestive heart failure and Klebsiella pneumonia contribution initially requiring ventilatory support, extubated 12/06/2021. Continues to improve slowly. Continue to titrate off supplemental oxygen support as tolerated. Renal: LEO on CKD likely secondary to CHF exacerbation, improved. Non oliguric. Continue to monitor renal indices and urine output. Nephrology service care appreciated. Endo: No acute issues. Underlying diabetes mellitus. GI: No acute issues. ID: Klebsiella pneumonia and UTI, continues on Levaquin. Heme/Onc: Lymphadenopathy, pathology is pending. Psych: No acute issues. Miscellaneous: No acute issues. Prophylaxis: Heparin Diet: Diabetic Quality Stroke Does the patient have a stroke diagnosis?: No VTE Prior VTE?: No VTE Risk Level:: Medical - moderate - high VTE Device Contraindication: Treatment Not Indicated VTE Drug Contraindication: N/A - Med Ordered
[2021-12-09] MEDS: Nystatin Powder 15 GM BOTTLE 1 APPL TOPICAL (14:01)
[2021-12-09 16:32] LABS: Glucose, Whole Blood 163 mg/dL (60-115)
--- NOTE | 2021-12-09 16:52 | PM.HEMONCCN ---
Subjective - Subjective Chief complaint: None Patient: new to practice Consult date: 12/09/21 Primary Care Provider: Tam Corea MD HPI - Consult Narrative Reason for consult: Lymphadenopathy/lymphoma Narrative: Cindy Toney is a 71 year old female with an extensive past medical history, morbid obesity who had a prolonged stay at the intensive care unit secondary to Klebsiella pneumonia. She presented with hypoxemia on CPAP, CT angiogram showed bilateral infiltrates, multifocal areas of consolidation along with mediastinal and retroperitoneal lymphadenopathy. CT abdomen/ pelvis on 11/19/2021 showed prominent retroperitoneal lymph nodes measuring 1.5 cm in the left para-aortic region. Right inguinal lymph node measuring 4.5 cm. Mediastinal lymph nodes maximum size 1.9 cm in the right paratracheal region. She had core biopsy of right groin lymph node on 11/25/2021 which showed evidence of lymphoma. She also had bronchoscopy and biopsy of paratracheal lymph node. Patient was extubated on 12/06/2021 today, she is with her niece and a family friend at her bedside. She communicates minimally, offers no complaints at this time. [facility] Medical History: Medical History (Last Reviewed 12/07/21 @ 08:19 by Margaret Ghosh OTR-L) CKD (chronic kidney disease) Congestive heart failure COVID Diabetes mellitus with insulin therapy HLD (hyperlipidemia) HTN (hypertension) Hypothyroidism Infection with ESBL Klebsiella oxytoca Lower extremity edema Lymphadenopathy, mediastinal Migraine Obesity Pleural effusion Pseudotumor cerebri PVD (peripheral vascular disease) Family History: Family History (Last Reviewed 12/04/21 @ 14:01 by Melody Chawla MD) Mother Heart attack, Onset Age: 92 Father Heart attack, Onset Age: 66 Other Diabetes Family history: reviewed and not pertinent Surgical History: Surgical History (Last Reviewed 12/07/21 @ 08:19 by Margaret Ghosh OTR-L) H/O cataract extraction H/O hysterectomy for benign disease Hx of cholecystectomy S/P appendectomy Social History: Social History (Last Reviewed 12/04/21 @ 14:01 by Melody Chawla MD) Tobacco History: Patient Tobacco Use Status: Never used Tobacco Advance Directives: Advance Directives Date on File: 09/26/20 Occupation Assessmet: service: No Current occupational status: disabled Home Medications and Allergies Current Medications: Current Medications Acetaminophen (Acetaminophen Oral Liquid 650 Mg/20.3 Ml Solution) 650 mg PO Q6H PRN PRN Reason: Fever >101 Last Admin: 12/06/21 10:56 Dose: 650 mg Dextrose (Dextrose 50 % 25 Gm/50 Ml Syringe) 25 gm IVPUSH Q15M PRN; Protocol PRN Reason: per Hypoglycemia Standing Ord. Last Admin: 12/01/21 19:53 Dose: 25 gm Furosemide (Furosemide 40 Mg Tablet) 40 mg PO BID@0900,1800 [facility]; Protocol Last Admin: 12/09/21 09:07 Dose: 40 mg Heparin Sodium (Porcine) (Heparin Sodium,Porcine 5,000 Unit/Ml Vial) 5,000 unit SUBCUT Q8H [facility] Last Admin: 12/09/21 14:01 Dose: 5,000 unit Levofloxacin (Levaquin) 750 mg in 150 mls @ 100 mls/hr IV Q24H [facility] Last Infusion: 12/09/21 10:39 Dose: Infused Insulin Glargine (Insulin Glargine,Hum.Rec.Anlog 100 Unit/Ml 10 Ml Vial) 15 unit SUBCUT DAILY [facility] Last Admin: 12/09/21 10:37 Dose: Not Given Insulin Human Lispro (Insulin Lispro 100 Unit/Ml 3 Ml Vial) 0 unit SUBCUT QIDACHS [facility]; Protocol Last Admin: 12/09/21 14:00 Dose: 9 unit Metoprolol Succinate (Metoprolol Succinate Er 100 Mg Tab.Er.24h) 100 mg PO DAILY [facility]; Protocol Last Admin: 12/09/21 09:07 Dose: 100 mg Naloxone HCl (Naloxone Hcl 0.4 Mg/Ml Vial) 0.2 mg IVPUSH Q2M PRN PRN Reason: Excessive sedation or RR < 8 Nystatin (Nystatin Powder 15 Gm Bottle) 1 appl TOPICAL BID [facility]; Protocol Last Admin: 12/09/21 14:01 Dose: 1 appl Home Medications Medication Instructions Recorded Confirmed Type amitriptyline 50 mg tablet 25 mg PO DAILY 10/08/21 11/20/21 History aspirin 325 mg tablet 325 mg PO DAILY 10/08/21 11/20/21 History brinzolamide 1 %-brimonidine 0.2 % 1 drp ophthalmic-Right BID 10/08/21 11/20/21 History eye drops,suspension (Simbrinza) chlordiazepoxide HCl 10 mg capsule 10 mg PO BEDTIME 10/08/21 11/20/21 History citalopram 20 mg tablet 20 mg PO DAILY 10/08/21 11/20/21 History clonazepam 0.5 mg tablet 0.5 mg PO BID 10/08/21 11/20/21 History docusate sodium 100 mg tablet 100 mg PO DAILY 10/08/21 11/20/21 History furosemide 40 mg tablet 40 tab PO BID@0900,1800 10/08/21 11/20/21 History hydroxychloroquine 200 mg tablet 200 mg PO BID 10/08/21 11/20/21 History insulin glargine 100 unit/mL (3 80 unit subcut BEDTIME 10/08/21 11/20/21 History mL) subcutaneous pen (Lantus Solostar U-100 Insulin) insulin lispro protamine-lispro 7 - 15 ea subcut TIDAC 10/08/21 11/20/21 History 100 unit/mL (75-25) subcutaneous pen levothyroxine 175 mcg tablet 175 mcg PO DAILY@0600 10/08/21 11/20/21 History multivitamin 1 tab PO DAILY 10/08/21 11/20/21 History netarsudil 0.02 %-latanoprost 1 drp ophthalmic (eye) BEDTIME 10/08/21 11/20/21 History 0.005 % eye drops (Rocklatan) simvastatin 20 mg tablet 20 mg PO BEDTIME 10/08/21 11/20/21 History sitagliptin 100 mg tablet (Januvia) 100 mg PO DAILY 10/08/21 11/20/21 History latanoprost 0.005 % eye drops 1 drp ophthalmic (eye) BEDTIME 11/20/21 11/20/21 History prednisolone ophthalmic-Right 1XD 12/07/21 History timolol drp ophthalmic (eye) 2XD 12/07/21 History Allergies Allergy/AdvReac Type Severity Reaction Status Date / Time oxycodone [From Percocet] Allergy Intermediate Rash Verified 11/19/21 17:16 Physical Exam Vital signs: Vital Signs Temp 97.6 F 12/09/21 15:31 Pulse 97 12/09/21 15:31 Resp 16 12/09/21 15:31 BP 150/95 H 12/09/21 15:31 Pulse Ox 93 12/09/21 15:31 O2 Del Method 12/09/21 15:31 O2 Flow Rate 2 12/09/21 10:00 FiO2 35 12/08/21 13:00 Intake & Output 12/08/21 12/09/21 12/09/21 18:59 06:59 18:59 Intake Total 350 / 550 200 / 550 250 / 250 Output Total 2265 / 3235 920 / 3235 1040 / 1040 Balance -1915 / -2685 -720 / -2685 -790 / -790 Urine Output (Average ml/kg/hr) 1.31 0.53 0.60 Intake: Intake, Oral Amount 100 / 100 Intake, IV Amount 350 / 550 200 / 550 150 / 150 Albumin Human 25 % 100 ml @ 100 200 / 400 200 / 400 mls/hr IV Q6H [facility] Rx#: [id number] levoFLOXacin/D5W 250 mg In 50 50 / 50 ml @ 50 mls/hr IV Q24H [facility] Rx#: [id number] levoFLOXacin/D5W 500 mg In 100 100 / 100 ml @ 100 mls/hr IV ONCE ONE Rx# :[id number] levoFLOXacin/D5W 750 mg In 150 150 / 150 ml @ 100 mls/hr IV Q24H [facility] Rx# :[id number] Output: Output, Urine Amount (Catheter) 2265 / 3235 920 / 3235 1040 / 1040 Urethral 2265 / 3235 920 / 3235 1040 / 1040 Other: Meal Refused Yes Dinner % Eaten 10% Urine Color Yellow Weight 143.9 kg [place] Weight in Grams [id number] Weight 143.9 kg - Constitutional Present: no acute distress, morbidly obese - Routine HEENT Exam Eye: Present: conjunctivae pale - Routine Respiratory Exam Absent: accessory muscle use - Routine Cardiovascular Exam Cardiovascular: Present: S1, S2 - Routine Extremities Exam Present: pedal edema Hem/Onc Consult Result - Labs CBC & Chem 7: 12/15/21 06:21 12/15/21 12:59 Labs: Short CBC 12/09/21 Range/Units 05:08 WBC 14.9 H (4.8-10.8) X10*3/uL Hgb 10.3 L (12.0-16.0) g/dl Hct 33.6 L (37.0-47.0) % Plt Count 306 (160-400) X10*3/uL BMP 12/08/21 12/09/21 18:26 05:08 Sodium 144 149 H Potassium 5.6 H 3.6 D Chloride 110 H 112 H Carbon Dioxide 17 L 24 BUN 37 H 31 H Creatinine 1.03 0.90 Calcium 8.2 L 8.8 D Liver Function 12/09/21 Range/Units 05:08 Albumin 4.2 D (3.5-5.0) g/dL Assessment and Plan Patient Active problem list reviewed?: Yes (1) Lymphadenopathy, mediastinal Status: Acute Assessment and plan: 1. This is a 71-year-old woman with morbid obesity and multiple other problems who was admitted for multifocal Klebsiella pneumonia and respiratory failure. She had a prolonged hospital course during which she was diagnosed with mediastinal and retroperitoneal lymphadenopathy. She had a right groin lymph node which was the largest measuring 4.5 cm, core biopsy of this was performed 11/25/2021. This revealed T-cell predominant lymphoid tissue, small population of lambda light chain predominant B-cells which were positive for CD5 and CD 23. Flow cytometry showed small population of CD5 positive B cells with lambda predominance suggestive of low level involvement by clonal CD5 positive B-cell population. She underwent bronchoscopy and biopsy of paratracheal lymph nodes on 12/03/2021. Pathology revealed small lymphocytes with mature chromatin, concurrent flow cytometry showed involvement by lambda light chain restricted B-cell population with coexpression of CD5 and CD 23. 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 However tissue was insufficient for NGS. Pleural fluid was also sent for flow cytometry, 11:14 translocation by FISH analysis was negative. Patient has chronic neutrophilic leukocytosis. Based on above biopsy reports, she has mild lymphadenopathy related to small lymphocytic lymphoma. Further workup with a PET-CT and other prognostic tests can be performed upon discharge. This was explained to patient and her niece who was the main caregiver. I thank you for this referral. - Time Spent With Patient Time Spent with Patient (in minutes): 20
[2021-12-09 19:40] LABS: Anion Gap 19 (12-20); Blood Urea Nitrogen 29 mg/dL (9-16); Calcium 8.6 mg/dL (8.4-10.2); Carbon Dioxide 23 mmol/L (22-29); Chloride 108 mmol/L (96-108); Creatinine Clr Calc Pharmacy 80.7; Estimated Glomerular Filt Rate 59; Glucose Random 218 mg/dL (60-115); Potassium 3.7 mmol/L (3.3-5.1); Sodium 146 mmol/L (135-145)
[2021-12-09 20:23] LABS: Glucose, Whole Blood 192 mg/dL (60-115)
[2021-12-09 23:58] LABS: Glucose, Whole Blood 182 mg/dL (60-115)
[2021-12-10] VITALS (7 sets, daily range): BP systolic 158–178; BP diastolic 70–77; PULSE 77–94; RESP 16–21; TEMP 36.9–37.7; O2SAT 92–97; BMI 53.2
[2021-12-10] MEDS: Heparin Sodium,Porcine 5,000 UNIT/ML VIAL 5000 UNIT SUBCUT ×4 (00:21→21:06)
[2021-12-10 06:54] LABS: MANUAL DIFF FLAG NO
[2021-12-10 07:08] LABS: Basophils Absolute Auto 0.1 X10*3/uL (0.0-0.2); Basophils Percent Auto 0.8 % (0-2); Eosinophils Absolute Auto 0.4 X10*3/uL (0.0-0.4); Hemoglobin 10.5 g/dl (12.0-16.0); Imm Gran Abs Auto 0.18 X10*3/uL (0.00-0.03); Imm Gran Pct Auto 1.3 % (0.0-0.4); Lymphocytes Absolute Auto 1.9 X10*3/uL (1.2-4.9); Lymphocytes Percent Auto 13.9 % (20-40); Mean Corpuscular HGB Conc 30.9 g/dl (31.0-35.0); Mean Corpuscular Hemoglobin 25.9 pg (27.0-33.0); Mean Corpuscular Volume 83.7 fL (80.0-98.0); Mean Platelet Volume 12.4 fL (9.4-12.3); Monocytes Absolute Auto 0.8 X10*3/uL (0.1-1.2); Monocytes Percent Auto 5.7 % (2-11); Neutrophils Absolute Auto 10.2 x10*3/uL (2.0-8.3); Neutrophils Percent Auto 75.3 % (45-73); Platelet Count 275 X10*3/uL (160-400); Red Blood Count 4.06 X10*6/uL (4.20-5.50); White Blood Count 13.6 X10*3/uL (4.8-10.8)
[2021-12-10 07:17] LABS: Anion Gap 18 (12-20); Blood Urea Nitrogen 30 mg/dL (9-16); Calcium 8.4 mg/dL (8.4-10.2); Carbon Dioxide 25 mmol/L (22-29); Chloride 109 mmol/L (96-108); Creatinine Clr Calc Pharmacy 78.5; Estimated Glomerular Filt Rate 57; Glucose Random 249 mg/dL (60-115); Magnesium 1.9 mg/dL (1.6-2.6); Potassium 3.8 mmol/L (3.3-5.1); Sodium 148 mmol/L (135-145)
[2021-12-10 07:54] LABS: Glucose, Whole Blood 219 mg/dL (60-115)
--- NOTE | 2021-12-10 08:17 | P.PNIM_ITS ---
Subjective Subjective Date of Service: 12/10/21 Interval History: Patient seen examined for acute respiratory failure patient is sitting comfortably offers no acute complaints denies nausea vomiting, no abdominal pain denies shortness of breath, no cough no acute events overnight Review of Systems FORMS EXAMINER no headache no dizziness CVS no chest pain Respiratory no cough, no shortness of Review of Systems: Yes all other systems are reviewed and are negative Physical Exam Vital Signs: Vital Signs: Last Vital Signs Temp 99.4 F 12/10/21 07:57 Pulse 85 12/10/21 07:57 Resp 16 12/10/21 07:57 BP 175/77 H 12/10/21 07:57 Pulse Ox 96 12/10/21 07:57 O2 Del Method 12/10/21 04:00 O2 Flow Rate 2 12/10/21 04:00 FiO2 35 12/08/21 13:00 Oxygen Flow Rate 2 12/09/21 07:00 BMI result Body Mass Index 53.2 Const: Other: General resting in bed, in no acute distress. Anicteric sclera Neck no JVD. CVS regular rate rhythm, Respiratory lungs clear to auscultation, no respiratory distress, no wheeze, no rhonchi. Gastrointestinal abdomen obese, soft, nontender, bowel sounds audible, no guarding , no rigidity. Extremities no pitting edema. Venous stasis discoloration Neuro moving all 4 extremity, speech clear. Objective Data Active Medications Acetaminophen (Acetaminophen Oral Liquid 650 Mg/20.3 Ml Solution) 650 mg PO Q6H PRN PRN Reason: Fever >101 Last Admin: 12/06/21 10:56 Dose: 650 mg Documented By: RISA Dextrose (Dextrose 50 % 25 Gm/50 Ml Syringe) 25 gm IVPUSH Q15M PRN; Protocol PRN Reason: per Hypoglycemia Standing Ord. Last Admin: 12/01/21 19:53 Dose: 25 gm Documented By: PEPITO Furosemide (Furosemide 40 Mg Tablet) 40 mg PO BID@0900,1800 [facility]; Protocol Last Admin: 12/09/21 18:32 Dose: 40 mg Documented By: SHELL Heparin Sodium (Porcine) (Heparin Sodium,Porcine 5,000 Unit/Ml Vial) 5,000 unit SUBCUT Q8H [facility] Last Admin: 12/10/21 00:21 Dose: 5,000 unit Documented By: MONIQUE Levofloxacin (Levaquin) 750 mg in 150 mls @ 100 mls/hr IV Q24H [facility] Last Infusion: 12/09/21 10:39 Dose: 0 mls/hr Documented By: SHELL Insulin Glargine (Insulin Glargine,Hum.Rec.Anlog 100 Unit/Ml 10 Ml Vial) 15 unit SUBCUT DAILY [facility] Last Admin: 12/09/21 10:37 Dose: Not Given Documented By: SHELL Non-Admin Reason: Physician Approved Insulin Human Lispro (Insulin Lispro 100 Unit/Ml 3 Ml Vial) 0 unit SUBCUT QIDACHS [facility]; Protocol Last Admin: 12/09/21 20:47 Dose: 5 unit Documented By: CATHIE Metoprolol Succinate (Metoprolol Succinate Er 100 Mg Tab.Er.24h) 100 mg PO DAILY [facility]; Protocol Last Admin: 12/09/21 09:07 Dose: 100 mg Documented By: SHELL Naloxone HCl (Naloxone Hcl 0.4 Mg/Ml Vial) 0.2 mg IVPUSH Q2M PRN PRN Reason: Excessive sedation or RR < 8 Nystatin (Nystatin Powder 15 Gm Bottle) 1 appl TOPICAL BID [facility]; Protocol Last Admin: 12/09/21 20:50 Dose: Not Given Documented By: CATHIE Non-Admin Reason: Previously Administered Labs CBC & Chem 7: 12/10/21 06:18 12/10/21 06:18 Labs: Laboratory Results - last 24 hr 11/25/21 12/03/21 12/09/21 10:34 08:33 11:21 MCV MCH MCHC RDW Plt Count MPV Immature Gran % (Auto) Neut % (Auto) Lymph % (Auto) Cole % (Auto) Eos % (Auto) Baso % (Auto) Lymph # (Auto) Cole # (Auto) Eos # (Auto) Baso # (Auto) Abs Immat Gran (auto) Absolute Neuts (auto) Absolute Nucleated RBC Nucleated RBC % (auto) Anion Gap Estim Creat Clear Calc Estimated GFR POC Glucose 204 H Random Glucose Calcium Phosphorus Magnesium Leuk/Lym Interpretation See Note CCND1/IgH t(11;14)FISH See Note 12/09/21 12/09/21 12/09/21 16:29 18:41 20:19 MCV MCH MCHC RDW Plt Count MPV Immature Gran % (Auto) Neut % (Auto) Lymph % (Auto) Cole % (Auto) Eos % (Auto) Baso % (Auto) Lymph # (Auto) Cole # (Auto) Eos # (Auto) Baso # (Auto) Abs Immat Gran (auto) Absolute Neuts (auto) Absolute Nucleated RBC Nucleated RBC % (auto) Anion Gap 19 Estim Creat Clear Calc 80.7 Estimated GFR 59 POC Glucose 163 H 192 H Random Glucose 218 H Calcium 8.6 Phosphorus Magnesium Leuk/Lym Interpretation CCND1/IgH t(11;14)FISH 12/09/21 12/10/21 12/10/21 23:55 06:18 06:18 MCV 83.7 MCH 25.9 L MCHC 30.9 L RDW 19.0 H Plt Count 275 MPV 12.4 H Immature Gran % (Auto) 1.3 H Neut % (Auto) 75.3 H Lymph % (Auto) 13.9 L Cole % (Auto) 5.7 Eos % (Auto) 3.0 Baso % (Auto) 0.8 Lymph # (Auto) 1.9 Cole # (Auto) 0.8 Eos # (Auto) 0.4 Baso # (Auto) 0.1 Abs Immat Gran (auto) 0.18 H Absolute Neuts (auto) 10.2 H Absolute Nucleated RBC 0.000 Nucleated RBC % (auto) 0.0 Anion Gap 18 Estim Creat Clear Calc 78.5 Estimated GFR 57 POC Glucose 182 H Random Glucose 249 H Calcium 8.4 Phosphorus 3.0 Magnesium 1.9 Leuk/Lym Interpretation CCND1/IgH t(11;14)FISH 12/10/21 07:51 MCV MCH MCHC RDW Plt Count MPV Immature Gran % (Auto) Neut % (Auto) Lymph % (Auto) Cole % (Auto) Eos % (Auto) Baso % (Auto) Lymph # (Auto) Cole # (Auto) Eos # (Auto) Baso # (Auto) Abs Immat Gran (auto) Absolute Neuts (auto) Absolute Nucleated RBC Nucleated RBC % (auto) Anion Gap Estim Creat Clear Calc Estimated GFR POC Glucose 219 H Random Glucose Calcium Phosphorus Magnesium Leuk/Lym Interpretation CCND1/IgH t(11;14)FISH Assessment and Plan (1) Klebsiella pneumonia: Status: Acute (2) Urinary tract infection due to ESBL Klebsiella: Status: Acute (3) Respiratory failure: Status: Acute (4) Obesity: Status: Acute (5) Hypothyroidism: Status: Acute (6) HTN (hypertension): Status: Acute (7) Diabetes mellitus with insulin therapy: Status: Acute (8) LEO (acute kidney injury): Status: Acute Plan Year old female with past medical history of COPD on home oxygen, diabetes mellitus type 2, chronic kidney disease, congestive heart failure, hypertension, hyperlipidemia, hypothyroidism, PVD and recent COVID infection month ago presented to [facility] due to symptoms of shortness of breath and noted to have a finger oximetry of 68% on room air by EMS patient was brought to [facility] with sats of 79% on CPAP she was obtunded tachypneic and was emergently intubated chest x-ray showed bilateral infiltrates congestion CTA chest showed no pulmonary embolism showed multifocal areas of consolidation abdominal CT showed retroperitoneal and mediastinal lymphadenopathy enlarged right inguinal node patient was admitted to intensive care unit, patient was treated with diuretics complicated by LEO and chronic kidney disease, antib iotics and was diagnosed to have Klebsiella pneumonia UTI, and Klebsiella in bronchial washings, due to diffuse abdominal lymphadenopathy she underwent groin lymph node aspiration and EUS aspiration of mediastinal lymph nodes, patient subsequently extubated on 12/06/2021 her renal function is improving currently on nasal cannula with stable oxygenation patient downgraded to [facility] on 12/09/2021 Acute on chronic diastolic heart failure resolved continue Lasix 40 mg b.i.d. Acute on chronic kidney disease stage III likely secondary to CHF exacerbation and due to tubular injury resolved, non oligouric, creatinine normalized to 0.97 Acute hypoxic respiratory failure secondary to CHF exacerbation and Klebsiella pneumonia, patient was recently discharged home after COVID infection on oxygen 3 L with activity, currently on 2 L of oxygen finger oximetry 97% will gradually wean oxygen as tolerated. UTI due to Klebsiella pneumoniae on IV Levaquin day 10/11,will continue IV Levaquin due to dysphagia. reviewed antibiotic history patient treated with Zosyn 4.5 g q.6 hours from 818- 822 then received IV meropenem between 12 03 through 12 06 Levaquin was started on 12/04 500 mg and then 250 mg daily and then changed to 750 mg daily on 12/08 Lymphadenopathy status post aspiration findings are likely consistent with chronic lymphocytic leukemia/small lymphocytic lymphoma being followed by Dr. Ruiz Bilateral lung washings showed no malignancy Diabetes mellitus continue Lantus and insulin sliding scale, blood sugars stable Morbid obesity contributing to above medical issues low-calorie diet recommended Mild hypernatremia will encourage water , decreased by mouth intake since patient on nectar thick liquids, will give IV D5W 500 mL, follow labs Dysphagia being followed by speech therapy on ground mechanical and nectar thick , will change to clear liquid as recommended by speech therapy on the last eval Full code DVT prophylaxis heparin Patient need continued inpatient hospitalization for IV antibiotic treatment for pneumonia and dysphagia being followed by speech therapy clinical case manager following for safe discharge Quality Stroke Does the patient have a stroke diagnosis?: No VTE Prior VTE?: No VTE Risk Level:: Medical - moderate - high VTE Device Contraindication: Treatment Not Indicated VTE Drug Contraindication: N/A - Med Ordered
[2021-12-10] MEDS: Insulin Lispro 100 UNIT/ML 3 ML VIAL SUBCUT ×3 (08:24→21:05)
[2021-12-10] MEDS: Metoprolol Succinate ER 100 MG TAB.ER.24H PO (08:25)
[2021-12-10] MEDS: Furosemide 40 MG TABLET PO ×2 (08:25→17:11)
[2021-12-10] MEDS: Insulin Glargine,Hum.rec.anlog 100 UNIT/ML 10 ML VIAL 15 UNIT SUBCUT (08:25)
[2021-12-10] MEDS: Nystatin Powder 15 GM BOTTLE 1 APPL TOPICAL ×2 (08:26→21:06)
[2021-12-10] MEDS: levoFLOXacin/D5W 750 MG/150 ML PIGGYBACK 100 MG IV (08:26)
[2021-12-10 11:23] LABS: Glucose, Whole Blood 178 mg/dL (60-115)
[2021-12-10 16:20] LABS: Glucose, Whole Blood 112 mg/dL (60-115)
[2021-12-10] MEDS: Dextrose 5 % and 0.45 % NaCl 500 ML 80 ML IVCONT (17:06)
[2021-12-10 20:39] LABS: Glucose, Whole Blood 168 mg/dL (60-115)
[2021-12-11] VITALS (7 sets, daily range): BP systolic 168–190; BP diastolic 70–84; PULSE 71–81; RESP 16–20; TEMP 36.2–36.9; O2SAT 2–98; BMI 51.1
--- NOTE | 2021-12-11 03:46 | MHC.SL.SWA ---
Speech Pathologist Impression: Risk of Aspiration Due to: Medically Fragile History of Pneumonia Hx of Recent Extubation Dysphasia Diet Status: Recommend DOWNGRADE liquids to NECTAR THICK as an aspiration precaution given maladaptive oral pattern noted, continue with GROUND/MECHANICAL/ALTERED (NDD2), Pills whole in puree with close monitor that patient is not pocketing or orally holding pills. Recommend liquids by assisted cup sip or by spoon. Liquid Consistency and Strategies for Safe Swallow: Liquid Intake Recommendation: [place] Thick Liquid Intake Strategies: Small Sips Solid Food Consistency: Dietary Recommendations: Grnd/Mech Altered (NDD2) Additional Modifications to Solid Foods: Patient required 1-1 feed. Assure that patient has swallowed and is not pocketing food, before presenting additional food, alternate liquids and solids. Oral Medication Intake: Whole with Puree Please contact the pharmacy regarding appropriate crushable or liquid drug formulations that are available whenever modified delivery is recommended. Compensatory Strategies and Precautions to be Taken for Safe Swallow: Sitting Upright (90 deg) Liquids from Straw Small Bites and Sips Alternate Liquids/Solids Rate of Ingestion Change Oral Check Supervision While Eating and Drinking for Safe Swallow: Total Assistance (1:1) Foods to Avoid: Mixed consistencies: Blend sauces or gravies into ground food well. Swallowing Recommended Treatments: Compens. Strategy Educat. Recommendation for Speech: Inpatient Speech Therapy Comment: Patient seen during lunch to assess toleration of diet, re-assess swallow. Patient was awake, lying in bed at onset, noted audible upper airway sounds at rest while breathing, intermittent productive coughing. Patient continued to present as communicating in limited manner, responding to questions after significant delay with terse replies. Patient accepted trying some of her meal, taking forkful of ground turkey with mashed potatoes, with food in mouth, patient noted to grimace at taste, produced a mildly delayed oral phase followed by timely swallow, laryngeal elevation difficult to fully palpate. Patient then declined any of the hot food from lunch tray. Patient accepted bites of mandarin oranges, on piece of orange, patient noted to produce disorganized, prolonged oral pattern, periodically pausing while still holding bolus in mouth (acknowledging this when asked), tongue fasciculations noted, eventually initiating swallow after long period. Some coughing was periodically noted while eating oranges, likely similar to coughing noted before eating began rather than in response to swallow. Patient offered straw sip of thin liquid, with patient again holding bolus of liquid in mouth before propelling it to swallow, with general coughing noted again after swallow. Patient responded I don't know when asked why she was holding liquid before swallowing. Sipping by straw was notably more effortful today, patient was offered cup sip instead, again holding bolus in mouth for prolonged period before propelling to swallow. Thickened liquid to nectar as concerned about aspiration risk with behavior of holding liquid bolus, patient again noted to hold bolus before initiating timely swallow. Patient then stated she did not want any more of her lunch, eating only small amount of meal. Recommend DOWNGRADE liquids to NECTAR THICK as an aspiration precaution given maladaptive oral pattern noted, continue with GROUND/MECHANICAL/ALTERED (NDD2), Pills whole in puree with close monitor that patient is not pocketing or orally holding pills. Frequency/Duration: Date Range for Service Req: Timeline to reassess: Modeler Clinican/Clinical Fellow: No Supervisory Statement: I have reviewed and agree with the student/clinical fellow's documentation: N/A Speech Language Pathologist: Vaishnavi Philip M.A., CCC-DEVELOPER PROGRAMMER
[2021-12-11 07:03] LABS: Hematocrit 35.1 % (37.0-47.0); Hemoglobin 10.6 g/dl (12.0-16.0); Red Blood Count 4.12 X10*6/uL (4.20-5.50); White Blood Count 14.1 X10*3/uL (4.8-10.8)
[2021-12-11 07:04] LABS: Mean Corpuscular HGB Conc 30.2 g/dl (31.0-35.0); Mean Corpuscular Hemoglobin 25.7 pg (27.0-33.0); Mean Corpuscular Volume 85.2 fL (80.0-98.0); Mean Platelet Volume 11.8 fL (9.4-12.3); Platelet Count 218 X10*3/uL (160-400); Red Cell Distribution Width 18.6 % (11.0-16.0)
[2021-12-11 07:41] LABS: Glucose, Whole Blood 225 mg/dL (60-115)
[2021-12-11 07:47] LABS: Anion Gap 16 (12-20); Blood Urea Nitrogen 29 mg/dL (9-16); Calcium 8.4 mg/dL (8.4-10.2); Carbon Dioxide 27 mmol/L (22-29); Chloride 107 mmol/L (96-108); Creatinine Clr Calc Pharmacy 77.4; Estimated Glomerular Filt Rate 57; Glucose Random 224 mg/dL (60-115); Potassium 3.9 mmol/L (3.3-5.1); Sodium 146 mmol/L (135-145)
[2021-12-11] MEDS: Insulin Lispro 100 UNIT/ML 3 ML VIAL SUBCUT ×4 (08:06→22:18)
[2021-12-11] MEDS: Heparin Sodium,Porcine 5,000 UNIT/ML VIAL 5000 UNIT SUBCUT ×3 (08:06→22:19)
[2021-12-11] MEDS: Insulin Glargine,Hum.rec.anlog 100 UNIT/ML 10 ML VIAL 15 UNIT SUBCUT (08:06)
[2021-12-11] MEDS: Furosemide 40 MG TABLET PO ×2 (08:07→17:08)
[2021-12-11] MEDS: Metoprolol Succinate ER 100 MG TAB.ER.24H PO (08:07)
[2021-12-11] MEDS: Nystatin Powder 15 GM BOTTLE 1 APPL TOPICAL ×2 (08:19→22:20)
--- NOTE | 2021-12-11 09:49 | MHC.CM.PN ---
Patient qualifies for STR. Referred facilities have been updated. DP STR via BLS. Patient not ready for discharge. She was transferred from ICU 2 days ago.
[2021-12-11] MEDS: amLODIPine Besylate 5 MG TABLET PO (11:13)
[2021-12-11] MEDS: levoFLOXacin/D5W 750 MG/150 ML PIGGYBACK 100 MG IV (11:13)
--- NOTE | 2021-12-11 11:31 | MHC.CLN ---
F/U PO INTAKE 25% X 1 MEAL DIET RX: 2200DM GRD M/S WITH NT LIQ-APPROPRIATE RECOMMEND RE-STARTING GLUCERNA SUPPLEMENTS BID TO INCREASE KCALS AND PROMOTE WOUND HEALING SUPP TO PROVIDE 474KCALS, 20G PROTEIN MONITOR PO INTAKE CLOSELY
[2021-12-11 12:04] LABS: Glucose, Whole Blood 178 mg/dL (60-115)
--- NOTE | 2021-12-11 12:58 | MHC.SL.SWA ---
Speech Pathologist Impression: Oropharyngeal dysphagia Risk of Aspiration Due to: Medically Fragile History of Pneumonia Hx of Recent Extubation Dysphasia Diet Status: Downgrade Liquid Consistency and Strategies for Safe Swallow: Liquid Intake Recommendation: Honey Thick Liquid Intake Strategies: Small Sips No Straws Liquids by Teaspoon Only Solid Food Consistency: Dietary Recommendations: Grnd/Mech Altered (NDD2) Additional Modifications to Solid Foods: Recommend DOWNGRADE liquids to HONEY THICK (by teaspoon), continue with GROUND/MECHANICAL/ALTERED (NDD2), Pills whole in puree with close monitor that patient is not pocketing or orally holding pills. Diet order was updated by [employer]. Sent update to MD, RN, RD via Undesk Message. Patient required 1-1 feed. Assure that patient has swallowed and is not pocketing food, before presenting additional food, alternate liquids and solids. Oral Medication Intake: Whole with Puree Please contact the pharmacy regarding appropriate crushable or liquid drug formulations that are available whenever modified delivery is recommended. Compensatory Strategies and Precautions to be Taken for Safe Swallow: Sitting Upright (90 deg) No Straw Liquids from Spoon Small Bites and Sips Alternate Liquids/Solids Rate of Ingestion Change Oral Check Supervision While Eating and Drinking for Safe Swallow: Total Assistance (1:1) Foods to Avoid: Mixed consistencies: Blend sauces or gravies into ground food well. Swallowing Recommended Treatments: Compens. Strategy Educat. Recommendation for Speech: Inpatient Speech Therapy Leaflet Distributor Clinican/Clinical Fellow: No Supervisory Statement: I have reviewed and agree with the student/clinical fellow's documentation: N/A Speech Language Pathologist: Dory Gomez M.A., [facility]
--- NOTE | 2021-12-11 13:18 | P.PNIM_ITS ---
Subjective Subjective Date of Service: 12/11/21 Interval History: the patient was seen and evaluated this morning Laying in bed, feels comfortable overall Still requiring oxygen supplement of 2 L Slow in responding No reported other overnight events. Systemic review: No fever, chills but has generalized weakness No chest pain, palpitation No shortness of breath or coughing No abdominal pain, nausea or vomiting No urinary symptoms Physical Exam Vital Signs: Vital Signs: Last Vital Signs Temp 98.3 F 12/11/21 11:56 Pulse 77 12/11/21 11:56 Resp 20 12/11/21 11:56 BP 184/78 H 12/11/21 11:56 Pulse Ox 2 L 12/11/21 11:56 O2 Del Method 12/11/21 11:56 O2 Flow Rate 2 12/11/21 07:25 FiO2 35 12/08/21 13:00 Oxygen Flow Rate 2 12/11/21 07:00 BMI result Body Mass Index 51.1 Const: Other: Constitutional : Alert, not in distress Neck : Normal inspection, Supple Cardiovascular : RRR, no JVP, no lower extremity edema Respiratory : fair bilateral air entry, no crackles, wheezes or rhonchi, on oxygen supplement Gastrointestinal: soft, lax, Normal bowel sounds, Non tender Skin : Warm, Dry, chronic venous discoloration lower extremities Neurological : Alert & oriented to self and place, No focal deficit Objective Data Active Medications Acetaminophen (Acetaminophen Oral Liquid 650 Mg/20.3 Ml Solution) 650 mg PO Q6H PRN PRN Reason: Fever >101 Last Admin: 12/06/21 10:56 Dose: 650 mg Documented By: RISA Amlodipine Besylate (Amlodipine Besylate 5 Mg Tablet) 5 mg PO DAILY [facility]; Protocol Last Admin: 12/11/21 11:13 Dose: 5 mg Documented By: KARLOS Dextrose (Dextrose 50 % 25 Gm/50 Ml Syringe) 25 gm IVPUSH Q15M PRN; Protocol PRN Reason: per Hypoglycemia Standing Ord. Last Admin: 12/01/21 19:53 Dose: 25 gm Documented By: PEPITO Furosemide (Furosemide 40 Mg Tablet) 40 mg PO BID@0900,1800 [facility]; Protocol Last Admin: 12/11/21 08:07 Dose: 40 mg Documented By: KARLOS Heparin Sodium (Porcine) (Heparin Sodium,Porcine 5,000 Unit/Ml Vial) 5,000 unit SUBCUT Q8H [facility] Last Admin: 12/11/21 08:06 Dose: 5,000 unit Documented By: KARLOS Levofloxacin (Levaquin) 750 mg in 150 mls @ 100 mls/hr IV Q24H [facility] Last Admin: 12/11/21 11:13 Dose: 100 mls/hr Documented By: KARLOS Insulin Glargine (Insulin Glargine,Hum.Rec.Anlog 100 Unit/Ml 10 Ml Vial) 15 unit SUBCUT DAILY [facility] Last Admin: 12/11/21 08:06 Dose: 15 unit Documented By: KARLOS Insulin Human Lispro (Insulin Lispro 100 Unit/Ml 3 Ml Vial) 0 unit SUBCUT QIDACHS [facility]; Protocol Last Admin: 12/11/21 12:08 Dose: 5 unit Documented By: KARLOS Metoprolol Succinate (Metoprolol Succinate Er 100 Mg Tab.Er.24h) 100 mg PO DAILY [facility]; Protocol Last Admin: 12/11/21 08:07 Dose: 100 mg Documented By: KARLOS Naloxone HCl (Naloxone Hcl 0.4 Mg/Ml Vial) 0.2 mg IVPUSH Q2M PRN PRN Reason: Excessive sedation or RR < 8 Nystatin (Nystatin Powder 15 Gm Bottle) 1 appl TOPICAL BID [facility]; Protocol Last Admin: 12/11/21 08:19 Dose: 1 appl Documented By: KARLOS Labs CBC & Chem 7: 12/11/21 06:45 12/11/21 06:45 Labs: Laboratory Results - last 24 hr 12/10/21 12/10/21 12/11/21 16:17 20:35 06:45 MCV 85.2 MCH 25.7 L MCHC 30.2 L RDW 18.6 H Plt Count 218 MPV 11.8 Absolute Nucleated RBC 0.000 Nucleated RBC % (auto) 0.0 Anion Gap Estim Creat Clear Calc Estimated GFR POC Glucose 112 168 H Random Glucose Calcium 12/11/21 12/11/21 12/11/21 06:45 07:27 12:01 MCV MCH MCHC RDW Plt Count MPV Absolute Nucleated RBC Nucleated RBC % (auto) Anion Gap 16 Estim Creat Clear Calc 77.4 Estimated GFR 57 POC Glucose 225 H 178 H Random Glucose 224 H Calcium 8.4 Microbiology Microbiology Results: Microbiology 12/05/21 20:37 Blood Culture - Final Blood - Venous No growth after 5 days. 12/05/21 20:20 Blood Culture - Final Blood - Venous No growth after 5 days. Assessment and Plan (1) Klebsiella pneumonia: Status: Acute (2) Acute respiratory failure with hypoxia: Status: Acute (3) Acute exacerbation of congestive heart failure: Status: Acute Plan Year old female with past medical history of COPD on home oxygen, diabetes mellitus type 2, chronic kidney disease, congestive heart failure, hypertension, hyperlipidemia, hypothyroidism, PVD and recent COVID infection month ago presented to [facility] due to symptoms of shortness of breath and noted to have a finger oximetry of 68% on room air by EMS patient was brought to [facility] with sats of 79% on CPAP she was obtunded tachypneic and was emergently intubated chest x-ray showed bilateral infiltrates congestion CTA chest showed no pulmonary embolism showed multifocal areas of consolidation abdominal CT showed retroperitoneal and mediastinal lymphadenopathy enlarged right inguinal node patient was admitted to intensive care unit, patient was treated with diuretics complicated by LEO and chronic kidney disease, antibiotics and was diagnosed to have Klebsiella pneumonia UTI, and Klebsiella in bronchial washings, due to diffuse abdominal lymphadenopathy she underwent groin lymph node aspiration and EUS aspiration of mediastinal lymph nodes, patient subsequently extubated on 12/06/2021 her renal function is improving currently on nasal cannula with stable oxygenation patient downgraded to [facility] on 12/09/2021 Acute on chronic diastolic heart failure resolved continue Lasix 40 mg b.i.d. Acute on chronic kidney disease stage III Resolved likely secondary to CHF exacerbation and due to tubular injury creatinine normalized to 0.97 Acute on chronic hypoxic respiratory failure secondary to CHF exacerbation and Klebsiella pneumonia patient was recently discharged home after COVID infection on oxygen 3 L with activity, currently on 2 L of oxygen finger oximetry 97% will gradually wean oxygen as tolerated. UTI due to Klebsiella pneumoniae on IV Levaquin day 11/11,will continue IV Levaquin due to dysphagia. reviewed antibiotic history patient treated with Zosyn 4.5 g q.6 hours from 818- 822 then received IV meropenem between 12 03 through 12 06 Levaquin was started on 12/04 500 mg and then 250 mg daily and then changed to 750 mg daily on 12/08 Lymphadenopathy status post aspiration findings are likely consistent with chronic lymphocytic leukemia/small lymphocytic lymphoma being followed by Dr. Ruiz Bilateral lung washings showed no malignancy Uncontrolled hypertension Started amlodipine Continue metoprolol Diabetes mellitus continue Lantus and insulin sliding scale, blood sugars stable Morbid obesity contributing to above medical issues low-calorie diet recommended Mild hypernatremia will encourage water , decreased by mouth intake since patient on nectar thick liquids give IV D5W 1000 mL, follow labs Dysphagia followed by speech therapy on NDD 2 ground mechanical and nectar thick Need one-to-one residential assistant with meals Full code DVT prophylaxis heparin Patient need continued inpatient hospitalization for IV antibiotic treatment for pneumonia and dysphagia being followed by speech therapy case advocate following for safe discharge and placement Quality Stroke Does the patient have a stroke diagnosis?: No VTE Prior VTE?: No VTE Risk Level:: Medical - moderate - high VTE Device Contraindication: Treatment Not Indicated VTE Drug Contraindication: N/A - Med Ordered
[2021-12-11] MEDS: Dextrose 5 % 1,000 ML 100 ML IVCONT (14:25)
[2021-12-11 16:29] LABS: Glucose, Whole Blood 226 mg/dL (60-115)
[2021-12-11 20:55] LABS: Glucose, Whole Blood 223 mg/dL (60-115)
[2021-12-12 03:15] VITALS: BP 188/77; PULSE 71; RESP 20; TEMP 36.8; O2SAT 96
[2021-12-12 05:53] VITALS: BMI 49.3
[2021-12-12] MEDS: Heparin Sodium,Porcine 5,000 UNIT/ML VIAL 5000 UNIT SUBCUT ×3 (06:32→23:45)
[2021-12-12 07:16] LABS: Hematocrit 34.2 % (37.0-47.0); Hemoglobin 10.3 g/dl (12.0-16.0); Mean Corpuscular HGB Conc 30.1 g/dl (31.0-35.0); Mean Corpuscular Hemoglobin 25.1 pg (27.0-33.0); Mean Corpuscular Volume 83.4 fL (80.0-98.0); Mean Platelet Volume 12.2 fL (9.4-12.3); Platelet Count 226 X10*3/uL (160-400); Red Cell Distribution Width 17.8 % (11.0-16.0); White Blood Count 15.6 X10*3/uL (4.8-10.8)
[2021-12-12 07:56] LABS: Anion Gap 15 (12-20); Blood Urea Nitrogen 29 mg/dL (9-16); Calcium 8.3 mg/dL (8.4-10.2); Carbon Dioxide 29 mmol/L (22-29); Chloride 102 mmol/L (96-108); Creatinine Clr Calc Pharmacy 71.2; Estimated Glomerular Filt Rate 54; Glucose Random 300 mg/dL (60-115); Sodium 143 mmol/L (135-145)
[2021-12-12 08:00] VITALS: BP 211/76; PULSE 79; RESP 18; TEMP 36.3; O2SAT 98
[2021-12-12 08:02] LABS: Glucose, Whole Blood 270 mg/dL (60-115)
[2021-12-12] MEDS: hydrALAZINE HCl 25 MG TABLET PO ×3 (08:22→21:02)
[2021-12-12] MEDS: Insulin Lispro 100 UNIT/ML 3 ML VIAL SUBCUT ×3 (08:22→17:03)
[2021-12-12] MEDS: Furosemide 40 MG TABLET PO ×2 (08:22→21:02)
[2021-12-12] MEDS: amLODIPine Besylate 10 MG TABLET PO (08:22)
[2021-12-12] MEDS: Metoprolol Succinate ER 100 MG TAB.ER.24H PO (08:22)
[2021-12-12] MEDS: Insulin Glargine,Hum.rec.anlog 100 UNIT/ML 10 ML VIAL 15 UNIT SUBCUT (08:22)
[2021-12-12] MEDS: levoFLOXacin/D5W 750 MG/150 ML PIGGYBACK 100 MG IV (11:40)
[2021-12-12] MEDS: Nystatin Powder 15 GM BOTTLE 1 APPL TOPICAL ×2 (11:42→21:03)
[2021-12-12 11:52] LABS: Glucose, Whole Blood 221 mg/dL (60-115)
[2021-12-12 12:00] VITALS: BP 156/62; PULSE 81; RESP 18; TEMP 36.4; O2SAT 96
--- NOTE | 2021-12-12 12:11 | HO.PM.IMPN ---
Subjective Subjective Date of Service: 12/12/21 Interval History: the patient was seen and evaluated this morning Laying in bed, alert with stimulation and very slow to respond Significantly elevated blood pressure this morning Still requiring oxygen supplement of 2 L No reported other overnight events. Systemic review: No fever, chills but has generalized weakness No chest pain, palpitation No shortness of breath or coughing No abdominal pain, nausea or vomiting No urinary symptoms Physical Exam Vital Signs: Vital Signs: Last Vital Signs Temp 97.3 F 12/12/21 08:00 Pulse 79 12/12/21 08:00 Resp 18 12/12/21 08:00 BP 211/76 H 12/12/21 08:00 Pulse Ox 98 12/12/21 08:00 O2 Del Method 12/12/21 08:00 O2 Flow Rate 4 12/12/21 08:00 FiO2 35 12/08/21 13:00 Oxygen Flow Rate 2 12/11/21 07:00 BMI result Body Mass Index 49.3 Const: Other: Constitutional : Alert, not in distress Neck : Normal inspection, Supple Cardiovascular : RRR, no JVP, no lower extremity edema Respiratory : fair bilateral air entry, no crackles, wheezes or rhonchi, on oxygen supplement Gastrointestinal: soft, lax, Normal bowel sounds, Non tender Skin : Warm, Dry, chronic venous discoloration lower extremities Neurological : Alert & oriented to self , No focal deficit Objective Data Active Medications Acetaminophen (Acetaminophen Oral Liquid 650 Mg/20.3 Ml Solution) 650 mg PO Q6H PRN PRN Reason: Fever >101 Last Admin: 12/06/21 10:56 Dose: 650 mg Documented By: RISA Amitriptyline HCl (Amitriptyline Hcl 25 Mg Tablet) 25 mg PO DAILY [facility] Amlodipine Besylate (Amlodipine Besylate 10 Mg Tablet) 10 mg PO DAILY [facility]; Protocol Last Admin: 12/12/21 08:22 Dose: 10 mg Documented By: LAKISHA Aspirin (Aspirin 325 Mg Tablet) 325 mg PO DAILY [facility] Atorvastatin Calcium (Atorvastatin Calcium 10 Mg Tablet) 10 mg PO BEDTIME [facility] Clonazepam (Clonazepam 0.5 Mg Tablet) 0.5 mg PO BID [facility] Dextrose (Dextrose 50 % 25 Gm/50 Ml Syringe) 25 gm IVPUSH Q15M PRN; Protocol PRN Reason: per Hypoglycemia Standing Ord. Last Admin: 12/01/21 19:53 Dose: 25 gm Documented By: PEPITO Docusate Sodium (Docusate Sodium 100 Mg Capsule) 100 mg PO DAILY [facility] Escitalopram Oxalate (Escitalopram Oxalate 10 Mg Tablet) 10 mg PO DAILY [facility] Furosemide (Furosemide 40 Mg Tablet) 40 mg PO BID@0900,1800 [facility]; Protocol Last Admin: 12/12/21 08:22 Dose: 40 mg Documented By: LAKISHA Heparin Sodium (Porcine) (Heparin Sodium,Porcine 5,000 Unit/Ml Vial) 5,000 unit SUBCUT Q8H [facility] Last Admin: 12/12/21 06:32 Dose: 5,000 unit Documented By: SHAHLA Hydralazine HCl (Hydralazine Hcl 25 Mg Tablet) 25 mg PO TID [facility]; Protocol Last Admin: 12/12/21 08:22 Dose: 25 mg Documented By: LAKISHA Levofloxacin (Levaquin) 750 mg in 150 mls @ 100 mls/hr IV Q24H [facility] Last Admin: 12/12/21 11:40 Dose: 100 mls/hr Documented By: WES Insulin Glargine (Insulin Glargine,Hum.Rec.Anlog 100 Unit/Ml 10 Ml Vial) 15 unit SUBCUT DAILY [facility] Last Admin: 12/12/21 08:22 Dose: 15 unit Documented By: LAKISHA Insulin Human Lispro (Insulin Lispro 100 Unit/Ml 3 Ml Vial) 0 unit SUBCUT QIDACHS [facility]; Protocol Last Admin: 12/12/21 08:22 Dose: 13 unit Documented By: LAKISHA Latanoprost (Latanoprost 0.005 % Ophth Mona 2.5 Ml Drops) 1 drop EYE-BOTH BEDTIME [facility] Levothyroxine Sodium (Levothyroxine Sodium 175 Mcg Tablet) 175 mcg PO DAILY@0600 [facility] Metoprolol Succinate (Metoprolol Succinate Er 100 Mg Tab.Er.24h) 100 mg PO DAILY [facility]; Protocol Last Admin: 12/12/21 08:22 Dose: 100 mg Documented By: LAKISHA Naloxone HCl (Naloxone Hcl 0.4 Mg/Ml Vial) 0.2 mg IVPUSH Q2M PRN PRN Reason: Excessive sedation or RR < 8 Non-Formulary Medication (Brinzolamide-Brimonidine [Simbrinza]) 1 drop EYE-RIGHT BID [facility] Non-Formulary Medication (Netarsudil-Latanoprost [Rocklatan]) 1 drop EYE-BOTH BEDTIME [facility] Nystatin (Nystatin Powder 15 Gm Bottle) 1 appl TOPICAL BID [facility]; Protocol Last Admin: 12/12/21 11:42 Dose: 1 appl Documented By: WES Sitagliptin Phosphate (Sitagliptin Phosphate 100 Mg Tablet) 100 mg PO DAILY [facility] Labs CBC & Chem 7: 12/12/21 06:29 12/12/21 06:29 Labs: Laboratory Results - last 24 hr 12/11/21 12/11/21 12/12/21 16:22 20:36 06:29 MCV 83.4 MCH 25.1 L MCHC 30.1 L RDW 17.8 H Plt Count 226 MPV 12.2 Absolute Nucleated RBC 0.000 Nucleated RBC % (auto) 0.0 Anion Gap Estim Creat Clear Calc Estimated GFR POC Glucose 226 H 223 H Random Glucose Calcium 12/12/21 12/12/21 12/12/21 06:29 07:54 11:47 MCV MCH MCHC RDW Plt Count MPV Absolute Nucleated RBC Nucleated RBC % (auto) Anion Gap 15 Estim Creat Clear Calc 71.2 Estimated GFR 54 POC Glucose 270 H 221 H Random Glucose 300 H Calcium 8.3 L Assessment and Plan (1) Urinary tract infection due to ESBL Klebsiella: Status: Acute (2) Lymphadenopathy, mediastinal: Status: Acute (3) Acute respiratory failure with hypoxia: Status: Acute (4) Acute exacerbation of congestive heart failure: Status: Acute (5) LEO (acute kidney injury): Status: Acute Plan Year old female with past medical history of COPD on home oxygen, diabetes mellitus type 2, chronic kidney disease, congestive heart failure, hypertension, hyperlipidemia, hypothyroidism, PVD and recent COVID infection month ago presented to [facility] due to symptoms of shortness of breath and noted to have a finger oximetry of 68% on room air by EMS patient was brought to [facility] with sats of 79% on CPAP she was obtunded tachypneic and was emergently intubated chest x-ray showed bilateral infiltrates congestion CTA chest showed no pulmonary embolism showed multifocal areas of consolidation abdominal CT showed retroperitoneal and mediastinal lymphadenopathy enlarged right inguinal node patient was admitted to intensive care unit, patient was treated with diuretics complicated by LEO and chronic kidney disease, antibiotics and was diagnosed to have Klebsiella pneumonia UTI, and Klebsiella in bronchial washings, due to diffuse abdominal lymphadenopathy she underwent groin lymph node aspiration and EUS aspiration of mediastinal lymph nodes, patient subsequently extubated on 12/06/2021 her renal function is improving currently on nasal cannula with stable oxygenation patient downgraded to [facility] on 12/09/2021 Acute on chronic diastolic heart failure resolved continue Lasix 40 mg b.i.d. Acute on chronic kidney disease stage III Resolved likely secondary to CHF exacerbation and due to tubular injury creatinine normalized to 0.97 Acute on chronic hypoxic respiratory failure secondary to CHF exacerbation and Klebsiella pneumonia patient was recently discharged home after COVID infection on oxygen 3 L with activity, currently on 2 L of oxygen finger oximetry 97% will gradually wean oxygen as tolerated. UTI due to Klebsiella pneumoniae on IV Levaquin day 12/12,will continue IV Levaquin due to dysphagia. reviewed antibiotic history patient treated with Zosyn 4.5 g q.6 hours from [id number] then received IV meropenem between 12 03 through 12 06 Levaquin was started on 12/04 500 mg and then 250 mg daily and then changed to 750 mg daily on 12/08 Lymphadenopathy status post aspiration findings are likely consistent with chronic lymphocytic leukemia/small lymphocytic lymphoma being followed by Dr. 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
--- NOTE | 2021-12-12 13:06 | MHC.CM.PN ---
MD has indicated that Patient is able to complete a HCP. CM assisted Patient in competing a HCP. Patient was PHYSICALLY unable to sign but was verbally able to indicate that she wishes to name her Niece/Patricia as her HCP Agent. HCP was completed, original and several copies given to Patient/niece, copy uploaded into [employer] and a copy placed on the physical chart. MD made aware.
[2021-12-12 15:04] VITALS: BP 169/68; PULSE 80; RESP 18; TEMP 36.1; O2SAT 94
[2021-12-12] MEDS: Potassium Chloride/H20 10 MEQ/100 ML PIGGYBACK 100 MEQ IV ×2 (15:45→16:46)
[2021-12-12 16:04] LABS: Glucose, Whole Blood 156 mg/dL (60-115)
[2021-12-12 16:26] LABS: Thyroid Stimulating Hormone 8.88 uIU/mL (0.32-4.0)
[2021-12-12 20:00] VITALS: BP 160/64; PULSE 74; RESP 20; TEMP 36.9; O2SAT 97
[2021-12-12 20:35] LABS: Glucose, Whole Blood 95 mg/dL (60-115)
[2021-12-12] MEDS: Atorvastatin Calcium 10 MG TABLET PO (21:03)
[2021-12-12] MEDS: Latanoprost 0.005 % Ophth Sol 2.5 ML DROPS 1 DROP EYE-BOTH (21:05)
[2021-12-13] VITALS (8 sets, daily range): BP systolic 146–177; BP diastolic 65–75; PULSE 70–85; RESP 16–20; TEMP 36.7–37.2; O2SAT 92–99
[2021-12-13] MEDS: Levothyroxine Sodium 175 MCG TABLET PO (06:04)
[2021-12-13] MEDS: Heparin Sodium,Porcine 5,000 UNIT/ML VIAL 5000 UNIT SUBCUT ×3 (06:04→22:48)
[2021-12-13 06:28] LABS: Hematocrit 35.9 % (37.0-47.0); Mean Corpuscular HGB Conc 30.6 g/dl (31.0-35.0); Mean Corpuscular Hemoglobin 25.3 pg (27.0-33.0); Mean Corpuscular Volume 82.7 fL (80.0-98.0); Mean Platelet Volume 11.4 fL (9.4-12.3); Platelet Count 203 X10*3/uL (160-400); Red Blood Count 4.34 X10*6/uL (4.20-5.50); White Blood Count 14.6 X10*3/uL (4.8-10.8)
[2021-12-13 07:01] LABS: Anion Gap 17 (12-20); Blood Urea Nitrogen 27 mg/dL (9-16); Calcium 8.4 mg/dL (8.4-10.2); Carbon Dioxide 29 mmol/L (22-29); Chloride 103 mmol/L (96-108); Estimated Glomerular Filt Rate > 60; Glucose Random 196 mg/dL (60-115); Potassium 3.4 mmol/L (3.3-5.1); Sodium 146 mmol/L (135-145)
[2021-12-13 08:02] LABS: Glucose, Whole Blood 223 mg/dL (60-115)
[2021-12-13] MEDS: Nystatin Powder 15 GM BOTTLE 1 APPL TOPICAL ×2 (08:37→19:59)
[2021-12-13] MEDS: Insulin Lispro 100 UNIT/ML 3 ML VIAL SUBCUT ×3 (08:38→19:59)
[2021-12-13] MEDS: Insulin Glargine,Hum.rec.anlog 100 UNIT/ML 10 ML VIAL 15 UNIT SUBCUT (08:38)
[2021-12-13] MEDS: Aspirin 325 MG TABLET PO (08:39)
[2021-12-13] MEDS: Docusate Sodium 100 MG CAPSULE PO (08:39)
[2021-12-13] MEDS: hydrALAZINE HCl 25 MG TABLET PO ×3 (08:39→19:58)
[2021-12-13] MEDS: SITagliptin Phosphate 100 MG TABLET PO (08:39)
[2021-12-13] MEDS: Escitalopram Oxalate 10 MG TABLET PO (08:39)
[2021-12-13] MEDS: amLODIPine Besylate 10 MG TABLET PO (08:39)
[2021-12-13] MEDS: Furosemide 40 MG TABLET PO ×2 (08:39→18:47)
[2021-12-13] MEDS: Metoprolol Succinate ER 100 MG TAB.ER.24H PO (08:49)
[2021-12-13] MEDS: levoFLOXacin/D5W 750 MG/150 ML PIGGYBACK 100 MG IV (10:33)
[2021-12-13 11:38] LABS: Glucose, Whole Blood 251 mg/dL (60-115)
--- NOTE | 2021-12-13 12:15 | HO.PM.IMPN ---
Subjective Subjective Date of Service: 12/13/21 Interval History: the patient was seen and evaluated this morning Laying in bed, more alert and interactive today Blood pressure better controlled Still requiring oxygen supplement of 2 L No reported other overnight events. Systemic review: No fever, chills but has generalized weakness No chest pain, palpitation No shortness of breath or coughing No abdominal pain, nausea or vomiting No urinary symptoms Physical Exam Vital Signs: Vital Signs: Last Vital Signs Temp 98.2 F 12/13/21 11: Pulse 85 12/13/21 11: Resp 18 12/13/21 11: BP 158/65 H 12/13/21 11:22 Pulse Ox 98 12/13/21 11: O2 Del Method 12/13/21 11:22 O2 Flow Rate 2 12/13/21 11: FiO2 35 12/08/21 13:00 Oxygen Flow Rate 3 12/13/21 07:00 BMI result Body Mass Index 49.3 Const: Other: Constitutional : Alert, not in distress, morbidly obese Neck : Normal inspection, Supple Cardiovascular : RRR, no JVP, trace bilateral lower extremity edema Respiratory : fair bilateral air entry, no crackles, wheezes or rhonchi, on oxygen supplement Gastrointestinal: soft, lax, Normal bowel sounds, Non tender Skin : Warm, Dry, chronic venous discoloration lower extremities Neurological : Alert & oriented to self , No focal deficit Objective Data Active Medications Acetaminophen (Acetaminophen Oral Liquid 650 Mg/20.3 Ml Solution) 650 mg PO Q6H PRN PRN Reason: Fever >101 Last Admin: 12/06/21 10:56 Dose: 650 mg Documented By: RISA Amlodipine Besylate (Amlodipine Besylate 10 Mg Tablet) 10 mg PO DAILY [facility]; Protocol Last Admin: 12/13/21 08:39 Dose: 10 mg Documented By: MARYSOL Aspirin (Aspirin 325 Mg Tablet) 325 mg PO DAILY [facility] Last Admin: 12/13/21 08:39 Dose: 325 mg Documented By: MARYSOL Atorvastatin Calcium (Atorvastatin Calcium 10 Mg Tablet) 10 mg PO BEDTIME [facility] Last Admin: 12/12/21 21:03 Dose: 10 mg Documented By: SHAHLA Dextrose (Dextrose 50 % 25 Gm/50 Ml Syringe) 25 gm IVPUSH Q15M PRN; Protocol PRN Reason: per Hypoglycemia Standing Ord. Last Admin: 12/01/21 19:53 Dose: 25 gm Documented By: PEPITO Docusate Sodium (Docusate Sodium 100 Mg Capsule) 100 mg PO DAILY [facility] Last Admin: 12/13/21 08:39 Dose: 100 mg Documented By: MARYSOL Escitalopram Oxalate (Escitalopram Oxalate 10 Mg Tablet) 10 mg PO DAILY [facility] Last Admin: 12/13/21 08:39 Dose: 10 mg Documented By: MARYSOL Furosemide (Furosemide 40 Mg Tablet) 40 mg PO BID@0900,1800 [facility]; Protocol Last Admin: 12/13/21 08:39 Dose: 40 mg Documented By: MARYSOL Heparin Sodium (Porcine) (Heparin Sodium,Porcine 5,000 Unit/Ml Vial) 5,000 unit SUBCUT Q8H [facility] Last Admin: 12/13/21 06:04 Dose: 5,000 unit Documented By: SHAHLA Hydralazine HCl (Hydralazine Hcl 25 Mg Tablet) 25 mg PO TID [facility]; Protocol Last Admin: 12/13/21 08:39 Dose: 25 mg Documented By: MARYSOL Levofloxacin (Levaquin) 750 mg in 150 mls @ 100 mls/hr IV Q24H [facility] Stop: 12/13/21 19:00 Last Infusion: 12/13/21 12:08 Dose: 0 mls/hr Documented By: MARYSOL Insulin Glargine (Insulin Glargine,Hum.Rec.Anlog 100 Unit/Ml 10 Ml Vial) 15 unit SUBCUT DAILY [facility] Last Admin: 12/13/21 08:38 Dose: 15 unit Documented By: MARYSOL Insulin Human Lispro (Insulin Lispro 100 Unit/Ml 3 Ml Vial) 0 unit SUBCUT QIDACHS [facility]; Protocol Last Admin: 12/13/21 08:38 Dose: 9 unit Documented By: MARYSOL Latanoprost (Latanoprost 0.005 % Ophth Mona 2.5 Ml Drops) 1 drop EYE-BOTH BEDTIME [facility] Last Admin: 12/12/21 21:05 Dose: 1 drop Documented By: SHAHLA Levothyroxine Sodium (Levothyroxine Sodium 175 Mcg Tablet) 175 mcg PO DAILY@0600 [facility] Last Admin: 12/13/21 06:04 Dose: 175 mcg Documented By: SHAHLA Metoprolol Succinate (Metoprolol Succinate Er 100 Mg Tab.Er.24h) 100 mg PO DAILY [facility]; Protocol Last Admin: 12/13/21 08:49 Dose: 100 mg Documented By: MARYSOL Naloxone HCl (Naloxone Hcl 0.4 Mg/Ml Vial) 0.2 mg IVPUSH Q2M PRN PRN Reason: Excessive sedation or RR < 8 Non-Formulary Medication (Brinzolamide-Brimonidine [Simbrinza]) 1 drop EYE-RIGHT BID ALAN Non-Formulary Medication (Netarsudil-Latanoprost [Rocklatan]) 1 drop EYE-BOTH BEDTIME [facility] Nystatin (Nystatin Powder 15 Gm Bottle) 1 appl TOPICAL BID [facility]; Protocol Last Admin: 12/13/21 08:37 Dose: 1 appl Documented By: MARYSOL Sitagliptin Phosphate (Sitagliptin Phosphate 100 Mg Tablet) 100 mg PO DAILY [facility] Last Admin: 12/13/21 08:39 Dose: 100 mg Documented By: MARYSOL Labs CBC & Chem 7: 12/13/21 05:57 12/13/21 05:57 Labs: Laboratory Results - last 24 hr 12/12/21 12/12/21 12/12/21 06:29 16:01 20:15 MCV MCH MCHC RDW Plt Count MPV Absolute Nucleated RBC Nucleated RBC % (auto) Anion Gap Estim Creat Clear Calc Estimated GFR POC Glucose 156 H 95 Random Glucose Calcium TSH 8.88 H 12/13/21 12/13/21 12/13/21 05:57 05:57 07:58 MCV 82.7 MCH 25.3 L MCHC 30.6 L RDW 18.0 H Plt Count 203 MPV 11.4 Absolute Nucleated RBC 0.000 Nucleated RBC % (auto) 0.0 Anion Gap 17 Estim Creat Clear Calc 79.0 Estimated GFR > 60 POC Glucose 223 H Random Glucose 196 H Calcium 8.4 TSH 12/13/21 11:34 MCV MCH MCHC RDW Plt Count MPV Absolute Nucleated RBC Nucleated RBC % (auto) Anion Gap Estim Creat Clear Calc Estimated GFR POC Glucose 251 H Random Glucose Calcium TSH Assessment and Plan (1) Urinary tract infection due to ESBL Klebsiella: Status: Acute (2) Lymphadenopathy, mediastinal: Status: Acute (3) Acute respiratory failure with hypoxia: Status: Acute (4) Pneumonia: Status: Acute Plan Year old female with past medical history of COPD on home oxygen, diabetes mellitus type 2, chronic kidney disease, congestive heart failure, hypertension, hyperlipidemia, hypothyroidism, PVD and recent COVID infection month ago presented to [facility] due to symptoms of shortness of breath and noted to have a finger oximetry of 68% on room air by EMS patient was brought to [facility] with sats of 79% on CPAP she was obtunded tachypneic and was emergently intubated chest x-ray showed bilateral infiltrates congestion CTA chest showed no pulmonary embolism showed multifocal areas of consolidation abdominal CT showed retroperitoneal and mediastinal lymphadenopathy enlarged right inguinal node patient was admitted to intensive care unit, patient was treated with diuretics complicated by LEO and chronic kidney disease, antibiotics and was diagnosed to have Klebsiella pneumonia UTI, and Klebsiella in bronchial washings, due to diffuse abdominal lymphadenopathy she underwent groin lymph node aspiration and EUS aspiration of mediastinal lymph nodes, patient subsequently extubated on 12/06/2021 her renal function is improving currently on nasal cannula with stable oxygenation patient downgraded [place] [facility] [place] 12/09/[place]21 Toxic metabolic encephalopathy Multifactorial, prolonged ICU stay, infection Noticed diet she did not receive levothyroxine for 3 weeks since ICU admission TSH of 8.8 Restarted with good response as the patient more interactive this morning Recurrent treat erection Acute on chronic diastolic heart failure resolved continue Lasix 40 mg b.i.d. Acute on chronic kidney disease stage III Resolved likely secondary to CHF exacerbation and due to tubular injury creatinine normalized to 0.97 Acute on chronic hypoxic respiratory failure secondary to CHF exacerbation and Klebsiella pneumonia patient was recently discharged home after COVID infection on oxygen 3 L with activity, currently on 2 L of oxygen finger oximetry 97% will gradually wean oxygen as tolerated. UTI due to Klebsiella pneumoniae on IV Levaquin day 01/11, DC Juan Carlos reviewed antibiotic history patient treated with Zosyn 4.5 g q.6 hours from [id number] then received IV meropenem between 12 03 through 12 06 Levaquin was started on 12/04 500 mg and then 250 mg daily and then changed to 750 mg daily on 12/08 Lymphadenopathy status post aspiration findings are likely consistent with chronic lymphocytic leukemia/small lymphocytic lymphoma being followed by Dr. Ruiz Bilateral lung washings showed no malignancy To follow with Oncology as outpatient Uncontrolled hypertension Started hydralazine Continue metoprolo and Amlodipinel Diabetes mellitus continue Lantus and insulin sliding scale, blood sugars stable Morbid obesity contributing to above medical issues low-calorie diet recommended Mild hypernatremia will encourage water , decreased by mouth intake since patient on nectar thick liquids give IV D5W 1000 mL, follow labs Dysphagia followed by speech therapy on NDD 2 ground mechanical and nectar thick Need one-to-one diet assistant with meals Full code DVT prophylaxis heparin Patient need continued inpatient hospitalization for IV antibiotic treatment for pneumonia/UTI , encephalopathy pending safe discharge plan Quality Stroke Does the patient have a stroke diagnosis?: No VTE Prior VTE?: No VTE Risk Level:: Medical - moderate - high VTE Device Contraindication: Treatment Not Indicated VTE Drug Contraindication: N/A - Med Ordered
[2021-12-13 16:29] LABS: Glucose, Whole Blood 128 mg/dL (60-115)
[2021-12-13 19:56] LABS: Glucose, Whole Blood 154 mg/dL (60-115)
[2021-12-13] MEDS: Atorvastatin Calcium 10 MG TABLET PO (19:58)
[2021-12-13] MEDS: Latanoprost 0.005 % Ophth Sol 2.5 ML DROPS 1 DROP EYE-BOTH (19:59)
[2021-12-14] VITALS (8 sets, daily range): BP systolic 122–187; BP diastolic 54–86; PULSE 66–80; RESP 17–20; TEMP 36.1–37.1; O2SAT 97–100
[2021-12-14] MEDS: Levothyroxine Sodium 175 MCG TABLET PO (06:40)
[2021-12-14] MEDS: Heparin Sodium,Porcine 5,000 UNIT/ML VIAL 5000 UNIT SUBCUT ×3 (06:40→23:02)
[2021-12-14 07:13] LABS: Anion Gap 19 (12-20); Blood Urea Nitrogen 27 mg/dL (9-16); Calcium 8.3 mg/dL (8.4-10.2); Carbon Dioxide 28 mmol/L (22-29); Chloride 103 mmol/L (96-108); Estimated Glomerular Filt Rate > 60; Glucose Random 191 mg/dL (60-115); Potassium 3.7 mmol/L (3.3-5.1); Sodium 146 mmol/L (135-145)
[2021-12-14 07:58] LABS: Glucose, Whole Blood 216 mg/dL (60-115)
[2021-12-14] MEDS: SITagliptin Phosphate 100 MG TABLET PO (08:34)
[2021-12-14] MEDS: amLODIPine Besylate 10 MG TABLET PO (08:34)
[2021-12-14] MEDS: Metoprolol Succinate ER 100 MG TAB.ER.24H PO (08:34)
[2021-12-14] MEDS: Insulin Glargine,Hum.rec.anlog 100 UNIT/ML 10 ML VIAL 15 UNIT SUBCUT (08:35)
[2021-12-14] MEDS: hydrALAZINE HCl 50 MG TABLET PO ×3 (08:35→23:02)
[2021-12-14] MEDS: Furosemide 40 MG TABLET PO (08:35)
[2021-12-14] MEDS: Aspirin 325 MG TABLET PO (08:35)
[2021-12-14] MEDS: Escitalopram Oxalate 10 MG TABLET PO (08:35)
[2021-12-14] MEDS: Docusate Sodium 100 MG CAPSULE PO (08:35)
[2021-12-14] MEDS: Insulin Lispro 100 UNIT/ML 3 ML VIAL SUBCUT ×3 (08:36→16:46)
[2021-12-14] MEDS: Nystatin Powder 15 GM BOTTLE 1 APPL TOPICAL ×2 (08:40→23:03)
[2021-12-14 10:41] LABS: FISH,CLL 11q22.3 QNS
--- NOTE | 2021-12-14 11:28 | MHC.CLN ---
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
[2021-12-14 11:35] LABS: Glucose, Whole Blood 225 mg/dL (60-115)
--- NOTE | 2021-12-14 11:36 | HO.PM.IMPN ---
Subjective Subjective Date of Service: 12/14/21 Interval History: the patient was seen and evaluated this morning Laying in bed, more alert and interactive Still requiring oxygen supplement of 2 L No reported other overnight events. Systemic review: No fever, chills but has generalized weakness No chest pain, palpitation No shortness of breath or coughing No abdominal pain, nausea or vomiting No urinary symptoms Physical Exam Vital Signs: Vital Signs: Last Vital Signs Temp 97.8 F 12/14/21 11:28 Pulse 77 12/14/21 11:28 Resp 18 12/14/21 11:28 BP 141/54 H 12/14/21 11:28 Pulse Ox 99 12/14/21 11:28 O2 Del Method 12/14/21 11:28 O2 Flow Rate 1 12/14/21 11:28 FiO2 35 12/08/21 13:00 Oxygen Flow Rate 1 12/14/21 07:00 BMI result Body Mass Index 49.3 Const: Other: Constitutional : Alert, not in distress, morbidly obese Neck : Normal inspection, Supple Cardiovascular : RRR, no JVP, trace bilateral lower extremity edema Respiratory : fair bilateral air entry, no crackles, wheezes or rhonchi, on oxygen supplement Gastrointestinal: soft, lax, Normal bowel sounds, Non tender Skin : Warm, Dry, chronic venous discoloration lower extremities Neurological : Alert & orientedx3, No focal deficit Objective Data Active Medications Acetaminophen (Acetaminophen Oral Liquid 650 Mg/20.3 Ml Solution) 650 mg PO Q6H PRN PRN Reason: Fever >101 Last Admin: 12/06/21 10:56 Dose: 650 mg Documented By: RISA Amlodipine Besylate (Amlodipine Besylate 10 Mg Tablet) 10 mg PO DAILY [facility]; Protocol Last Admin: 12/14/21 08:34 Dose: 10 mg Documented By: NIKI Aspirin (Aspirin 325 Mg Tablet) 325 mg PO DAILY [facility] Last Admin: 12/14/21 08:35 Dose: 325 mg Documented By: NIKI Atorvastatin Calcium (Atorvastatin Calcium 10 Mg Tablet) 10 mg PO BEDTIME [facility] Last Admin: 12/13/21 19:58 Dose: 10 mg Documented By: MEME Dextrose (Dextrose 50 % 25 Gm/50 Ml Syringe) 25 gm IVPUSH Q15M PRN; Protocol PRN Reason: per Hypoglycemia Standing Ord. Last Admin: 12/01/21 19:53 Dose: 25 gm Documented By: PEPITO Docusate Sodium (Docusate Sodium 100 Mg Capsule) 100 mg PO DAILY [facility] Last Admin: 12/14/21 08:35 Dose: 100 mg Documented By: NIKI Escitalopram Oxalate (Escitalopram Oxalate 10 Mg Tablet) 10 mg PO DAILY [facility] Last Admin: 12/14/21 08:35 Dose: 10 mg Documented By: NIKI Furosemide (Furosemide 40 Mg Tablet) 40 mg PO BID@0900,1800 [facility]; Protocol Last Admin: 12/14/21 08:35 Dose: 40 mg Documented By: NIKI Heparin Sodium (Porcine) (Heparin Sodium,Porcine 5,000 Unit/Ml Vial) 5,000 unit SUBCUT Q8H [facility] Last Admin: 12/14/21 06:40 Dose: 5,000 unit Documented By: MEME Hydralazine HCl (Hydralazine Hcl 50 Mg Tablet) 50 mg PO TID [facility]; Protocol Last Admin: 12/14/21 08:35 Dose: 50 mg Documented By: NIKI Insulin Glargine (Insulin Glargine,Hum.Rec.Anlog 100 Unit/Ml 10 Ml Vial) 15 unit SUBCUT DAILY [facility] Last Admin: 12/14/21 08:35 Dose: 15 unit Documented By: NIKI Insulin Human Lispro (Insulin Lispro 100 Unit/Ml 3 Ml Vial) 0 unit SUBCUT QIDACHS [facility]; Protocol Last Admin: 12/14/21 08:36 Dose: 9 unit Documented By: NIKI Latanoprost (Latanoprost 0.005 % Ophth Mona 2.5 Ml Drops) 1 drop EYE-BOTH BEDTIME [facility] Last Admin: 12/13/21 19:59 Dose: 1 drop Documented By: MEME Levothyroxine Sodium (Levothyroxine Sodium 175 Mcg Tablet) 175 mcg PO DAILY@0600 [facility] Last Admin: 12/14/21 06:40 Dose: 175 mcg Documented By: MEME Metoprolol Succinate (Metoprolol Succinate Er 100 Mg Tab.Er.24h) 100 mg PO DAILY [facility]; Protocol Last Admin: 12/14/21 08:34 Dose: 100 mg Documented By: NIKI Naloxone HCl (Naloxone Hcl 0.4 Mg/Ml Vial) 0.2 mg IVPUSH Q2M PRN PRN Reason: Excessive sedation or RR < 8 Non-Formulary Medication (Brinzolamide-Brimonidine [Simbrinza]) 1 drop EYE-RIGHT BID [facility] Non-Formulary Medication (Netarsudil-Latanoprost [Rocklatan]) 1 drop EYE-BOTH BEDTIME [facility] Nystatin (Nystatin Powder 15 Gm Bottle) 1 appl TOPICAL BID [facility]; Protocol Last Admin: 12/14/21 08:40 Dose: 1 appl Documented By: NIKI Sitagliptin Phosphate (Sitagliptin Phosphate 100 Mg Tablet) 100 mg PO DAILY [facility] Last Admin: 12/14/21 08:34 Dose: 100 mg Documented By: NIKI Labs CBC & Chem 7: 12/13/21 05:57 12/14/21 06:16 Labs: Laboratory Results - last 24 hr 12/03/21 12/13/21 12/13/21 08:33 11:34 16:19 Anion Gap Estim Creat Clear Calc Estimated GFR POC Glucose 251 H 128 H Random Glucose Calcium CLL (FISH) Interp QNS 12/13/21 12/14/21 12/14/21 19:52 06:16 07:50 Anion Gap 19 Estim Creat Clear Calc 79.0 Estimated GFR > 60 POC Glucose 154 H 216 H Random Glucose 191 H Calcium 8.3 L CLL (FISH) Interp 12/14/21 11:29 Anion Gap Estim Creat Clear Calc Estimated GFR POC Glucose 225 H Random Glucose Calcium CLL (FISH) Interp Microbiology Microbiology Results: Microbiology 11/25/21 09:30 Fungal Identification - Preliminary Pleural Fluid No growth after 2 weeks. Assessment and Plan (1) Urinary tract infection due to ESBL Klebsiella: Status: Acute (2) Lymphadenopathy, mediastinal: Status: Acute (3) Hypothyroidism: Status: Acute (4) Toxic metabolic encephalopathy: Status: Acute Plan Year old female with past medical history of COPD on home oxygen, diabetes mellitus type 2, chronic kidney disease, congestive heart failure, hypertension, hyperlipidemia, hypothyroidism, PVD and recent COVID infection month ago presented to [facility] due to symptoms of shortness of breath and noted to have a finger oximetry of 68% on room air by EMS patient was brought to [facility] with sats of 79% on CPAP she was obtunded tachypneic and was emergently intubated chest x-ray showed bilateral infiltrates congestion CTA chest showed no pulmonary embolism showed multifocal areas of consolidation abdominal CT showed retroperitoneal and mediastinal lymphadenopathy enlarged right inguinal node patient was admitted to intensive care unit, patient was treated with diuretics complicated by LEO and chronic kidney disease, antibiotics and was diagnosed to have Klebsiella pneumonia UTI, and Klebsiella in bronchial washings, due to diffuse abdominal lymphadenopathy she underwent groin lymph node aspiration and EUS aspiration of mediastinal lymph nodes, patient subsequently extubated on 12/06/2021 her renal function is improving currently on nasal cannula with stable oxygenation patient downgraded to C on 12/09/2021 Toxic metabolic encephalopathy Multifactorial, prolonged ICU stay, infection , hypothyroidism Improving Noticed diet she did not receive levothyroxine for 3 weeks since ICU admission TSH of 8.8 Continue home dose levothyroxine Follow TSH as outpatient Acute on chronic diastolic heart failure resolved continue Lasix 40 mg b.i.d. Acute on chronic kidney disease stage III Resolved likely secondary to CHF exacerbation and due to tubular injury creatinine normalized to 0.97 Acute on chronic hypoxic respiratory failure secondary to CHF exacerbation and Klebsiella pneumonia patient was recently discharged home after COVID infection on oxygen 3 L with activity, currently on 2 L of oxygen finger oximetry 97% will gradually wean oxygen as tolerated. UTI due to Klebsiella pneumoniae Finished Levaquin day 01/11 reviewed antibiotic history patient treated with Zosyn 4.5 g q.6 hours from [id number] then received IV meropenem between 12 03 through 12 06 Levaquin was started on 12/04 500 mg and then 250 mg daily and then changed to 750 mg daily on 12/08 Lymphadenopathy status post aspiration findings are likely consistent with chronic lymphocytic leukemia/small lymphocytic lymphoma being followed by Dr. Ruiz Bilateral lung washings showed no malignancy To follow with Oncology as outpatient Uncontrolled hypertension Started hydralazine Continue metoprolo and Amlodipinel Diabetes mellitus continue Lantus and insulin sliding scale, blood sugars stable Morbid obesity contributing to above medical issues low-calorie diet recommended Mild hypernatremia will encourage water , decreased by mouth intake since patient on nectar thick liquids give IV D5W 1000 mL, follow labs Dysphagia followed by speech therapy on NDD 2 ground mechanical and nectar thick Need one-to-one business support assistant with meals Full code DVT prophylaxis heparin Patient need continued inpatient pending safe discharge plan. Quality Stroke Does the patient have a stroke diagnosis?: No VTE Prior VTE?: No VTE Risk Level:: Medical - moderate - high VTE Device Contraindication: Treatment Not Indicated VTE Drug Contraindication: N/A - Med Ordered
[2021-12-14 16:06] LABS: Glucose, Whole Blood 158 mg/dL (60-115)
--- NOTE | 2021-12-14 16:52 | MHC.SL.SWA ---
Addendum entered and electronically signed by KAILYN Banerjee 12/14/21 18:41: As clinical solid waste division supervisor, I have reviewed this note and agree with findings. Original Note: Risk of Aspiration Due to: Medically Fragile History of Pneumonia Hx of Recent Extubation Dysphasia Diet Status: Recommend UPGRADE liquids to THIN (by teaspoon only). Present teaspoon anteriorly in oral cavity to allow pt to sip water from teaspoon. Continue with GROUND/MECHANICAL/ALTERED (NDD2), Pills whole in puree with close monitor that patient is not pocketing or orally holding pills. Liquid Consistency and Strategies for Safe Swallow: Liquid Intake Recommendation: Thin Liquid Intake Strategies: Small Sips No Straws Liquids by Teaspoon Only Solid Food Consistency: Dietary Recommendations: Grnd/Mech Altered (NDD2) Additional Modifications to Solid Foods: Patient required 1-1 feed. Assure that patient has swallowed and is not pocketing food, before presenting additional food, alternate liquids and solids. Oral Medication Intake: Whole with Puree Please contact the pharmacy regarding appropriate crushable or liquid drug formulations that are available whenever modified delivery is recommended. Compensatory Strategies and Precautions to be Taken for Safe Swallow: Sitting Upright (90 deg) Double Swallow No Straw Liquids from Spoon Small Bites and Sips Alternate Liquids/Solids Rate of Ingestion Change Oral Check Supervision While Eating and Drinking for Safe Swallow: Total Assistance (1:1) Foods to Avoid: Mixed consistencies: Blend sauces or gravies into ground food well. Swallowing Recommended Treatments: Compens. Strategy Educat. Recommendation for Speech: Inpatient Speech Therapy If PNA worsens and/or swallowing difficulties decline, recommend [facility] reported no problems taking pills whole with thickened liquid. Pt was awake and alert, repositioned to sit upright in bed for PO trials. Pt was edentulous for PO trials. Pt tolerated ice chips, trace amount of water via tsp, and full tsp of water without any overt clinical s/s of aspiration. Teaspoon was presented anteriorally in oral cavity and pt sipped liquid from teaspoon. Pt was presented with nectar thick apple juice via tsp, noted immediate cough. Pt and family both reported pt's disinterest and dislike for apple juice. When presented with nectar thick grape juice via tsp, pt presented with throat clear 1X. When cued to swallow anything that felt stuck, throat clear was eliminated. Pt proceeded to drink 1/2 cup of nectar thick grape juice via tsp without any s/s of aspiration. Pt trialed water via cup controlled cup sip with assistance from clinician. With cup sip pt was noted to have audible swallow and to have larger bolus in mouth and hold for 1/2 second prior to swallowing. Pt then drank 1/2 cup water via teaspoon with no s/s of aspiration. No change in vocal quality observed. Pt ate small bites of sherbert via teaspoon. Note mild bolus hold prior to propelling posteriorly. Pt independently swallowed after 1/4 second to 1/2 second. Complete oral clearance noted with sherbert. Internet Designer Clinican/Clinical Fellow: Yes: Yaritza Syed M.A., CF-INSPECTOR RECEIVING Supervisory Statement: I have reviewed and agree with the student/clinical fellow's documentation: N/A Speech Language Pathologist: Dory Gomez M.A., CCC-INSPECTOR RECEIVING
--- NOTE | 2021-12-14 19:48 | PC.NURSE ---
Turner removed @1530, patient due to void at 2130. No void @ 1900. Next RN notified.
[2021-12-14 20:21] LABS: Glucose, Whole Blood 142 mg/dL (60-115)
[2021-12-14] MEDS: Atorvastatin Calcium 10 MG TABLET PO (23:03)
[2021-12-14] MEDS: Latanoprost 0.005 % Ophth Sol 2.5 ML DROPS 1 DROP EYE-BOTH (23:03)
[2021-12-15] VITALS (7 sets, daily range): BP systolic 133–183; BP diastolic 61–77; PULSE 63–76; RESP 16–18; TEMP 35.9–37.1; O2SAT 94–100; BMI 49.5
[2021-12-15] MEDS: Heparin Sodium,Porcine 5,000 UNIT/ML VIAL 5000 UNIT SUBCUT ×2 (06:04→16:21)
[2021-12-15] MEDS: Levothyroxine Sodium 175 MCG TABLET PO (06:06)
[2021-12-15 06:30] LABS: Hematocrit 36.2 % (37.0-47.0); Hemoglobin 11.1 g/dl (12.0-16.0); Mean Corpuscular HGB Conc 30.7 g/dl (31.0-35.0); Mean Corpuscular Hemoglobin 25.9 pg (27.0-33.0); Mean Corpuscular Volume 84.4 fL (80.0-98.0); Mean Platelet Volume 11.8 fL (9.4-12.3); Platelet Count 179 X10*3/uL (160-400); Red Blood Count 4.29 X10*6/uL (4.20-5.50); White Blood Count 17.7 X10*3/uL (4.8-10.8)
[2021-12-15 06:50] LABS: Anion Gap 12 (12-20); Blood Urea Nitrogen 29 mg/dL (9-16); Calcium 8.8 mg/dL (8.4-10.2); Carbon Dioxide 34 mmol/L (22-29); Chloride 104 mmol/L (96-108); Creatinine Clr Calc Pharmacy 80.1; Estimated Glomerular Filt Rate > 60; Glucose Random 196 mg/dL (60-115); Sodium 147 mmol/L (135-145)
[2021-12-15 08:03] LABS: Glucose, Whole Blood 177 mg/dL (60-115)
[2021-12-15] MEDS: Metoprolol Succinate ER 100 MG TAB.ER.24H PO (09:00)
[2021-12-15] MEDS: hydrALAZINE HCl 50 MG TABLET PO ×3 (09:01→20:16)
[2021-12-15] MEDS: Docusate Sodium 100 MG CAPSULE PO (09:01)
[2021-12-15] MEDS: amLODIPine Besylate 10 MG TABLET PO (09:01)
[2021-12-15] MEDS: Escitalopram Oxalate 10 MG TABLET PO (09:01)
[2021-12-15] MEDS: Aspirin 325 MG TABLET PO (09:02)
[2021-12-15] MEDS: Insulin Glargine,Hum.rec.anlog 100 UNIT/ML 10 ML VIAL 15 UNIT SUBCUT (09:02)
[2021-12-15] MEDS: SITagliptin Phosphate 100 MG TABLET PO (09:02)
[2021-12-15] MEDS: Insulin Lispro 100 UNIT/ML 3 ML VIAL SUBCUT ×4 (09:03→21:06)
[2021-12-15] MEDS: Potassium Chloride/H20 10 MEQ/100 ML PIGGYBACK 100 MEQ IV ×2 (09:04→10:27)
[2021-12-15] MEDS: Fluconazole 100 MG TABLET 200 MG PO (09:26)
[2021-12-15 11:34] LABS: Glucose, Whole Blood 252 mg/dL (60-115)
[2021-12-15] MEDS: Dextrose 5 % 1,000 ML 125 ML IVCONT ×2 (11:39→19:51)
--- NOTE | 2021-12-15 12:02 | MHC.SL.SWA ---
Speech Pathologist Impression: Risk of Aspiration Due to: Medically Fragile History of Pneumonia Hx of Recent Extubation Dysphasia Diet Status: Continue with GROUND/MECHANICAL/ALTERED (NDD2) with THIN LIQUIDS by cup sip (NO STRAW). Pills whole in puree with close monitor that patient is not pocketing or orally holding pills. Liquid Consistency and Strategies for Safe Swallow: Liquid Intake Recommendation: Thin Liquid Intake Strategies: Small Sips No Straws Solid Food Consistency: Dietary Recommendations: Grnd/Mech Altered (NDD2) Additional Modifications to Solid Foods: Patient required 1-1 feed. Assure that patient has swallowed and is not pocketing food, before presenting additional food, alternate liquids and solids. Oral Medication Intake: Whole with Puree Please contact the pharmacy regarding appropriate crushable or liquid drug formulations that are available whenever modified delivery is recommended. Compensatory Strategies and Precautions to be Taken for Safe Swallow: Sitting Upright (90 deg) No Straw Liquids from Cup Small Bites and Sips Alternate Liquids/Solids Rate of Ingestion Change Oral Check Supervision While Eating and Drinking for Safe Swallow: Total Assistance (1:1) Foods to Avoid: Mixed consistencies: Blend sauces or gravies into ground food well. Swallowing Recommended Treatments: Compens. Strategy Educat. Recommendation for Speech: Inpatient Speech Therapy Comment: Pt seen for repeat swallow assessment, toleration. Patient was advanced yesterday to thin liquids by TSP only, continued on Ground Mechanical Diet. Patient noted to be responding to questions without significant pauses as previously observed. Patient continues to be somewhat verbally terse. Water was present at bedside, offered patient controlled cup sip of cold water, patient noted to produce good seal on cup, produce a timely oral phase, swallow trigger, mildly reduced laryngeal elevation on palpation. On repeat cup sips, patient occasionally held liquid in mouth briefly before propelling for swallow. Patient was offered cup to hold, patient then lifted cup to mouth, taking appropriate amount as sip, producing timely oral phase and swallow. No clinical signs of aspiration. Patient noted to have periodic mild lower lip tremor, tongue not noted to have fasciculations as previously observed. Recommend CONTINUE on Ground Mechanical Altered with THIN liquids by cup sip. Encourage patient to take independent small sips. NO STRAWS at this time. Frequency/Duration: Date Range for Service Req: Timeline to reassess: General Cargo Clerk Clinican/Clinical Fellow: No Supervisory Statement: I have reviewed and agree with the student/clinical fellow's documentation: N/A Speech Language Pathologist: Vaishnavi Philip M.A., [facility]
--- NOTE | 2021-12-15 13:05 | HO.PM.IMPN ---
Subjective Subjective Date of Service: 12/15/21 Interval History: the patient was seen and evaluated this morning Laying in bed, more alert and interactive Still requiring oxygen supplement of 2 L No reported other overnight events. Systemic review: No fever, chills but has generalized weakness No chest pain, palpitation No shortness of breath or coughing No abdominal pain, nausea or vomiting No urinary symptoms Physical Exam Vital Signs: Vital Signs: Last Vital Signs Temp 98.2 F 12/15/21 11:42 Pulse 76 12/15/21 11:42 Resp 18 12/15/21 11:42 BP 151/66 H 12/15/21 11:42 Pulse Ox 98 12/15/21 11:42 O2 Del Method 12/15/21 11:42 O2 Flow Rate 1 12/15/21 11:42 FiO2 35 12/08/21 13:00 Oxygen Flow Rate 1 12/15/21 07:00 BMI result Body Mass Index 49.5 Const: Other: Constitutional : Alert, not in distress, morbidly obese Neck : Normal inspection, Supple Cardiovascular : RRR, no JVP, trace bilateral lower extremity edema Respiratory : fair bilateral air entry, no crackles, wheezes or rhonchi, on oxygen supplement Gastrointestinal: soft, lax, Normal bowel sounds, Non tender Skin : Warm, Dry, chronic venous discoloration lower extremities Neurological : Alert & orientedx3, No focal deficit Objective Data Active Medications Acetaminophen (Acetaminophen Oral Liquid 650 Mg/20.3 Ml Solution) 650 mg PO Q6H PRN PRN Reason: Fever >101 Last Admin: 12/06/21 10:56 Dose: 650 mg Documented By: RISA Amlodipine Besylate (Amlodipine Besylate 10 Mg Tablet) 10 mg PO DAILY [facility]; Protocol Last Admin: 12/15/21 09:01 Dose: 10 mg Documented By: LES Aspirin (Aspirin 325 Mg Tablet) 325 mg PO DAILY [facility] Last Admin: 12/15/21 09:02 Dose: 325 mg Documented By: LES Atorvastatin Calcium (Atorvastatin Calcium 10 Mg Tablet) 10 mg PO BEDTIME [facility] Last Admin: 12/14/21 23:03 Dose: 10 mg Documented By: MARIA ALEJANDRA Brimonidine Tartrate (Brimonidine Tartrate 0.2% Oph 5 Ml Bottle) 1 drop EYE-RIGHT BID [facility] Last Admin: 12/15/21 11:44 Dose: Not Given Documented By: LES Non-Admin Reason: Med Not Available Dextrose (Dextrose 50 % 25 Gm/50 Ml Syringe) 25 gm IVPUSH Q15M PRN; Protocol PRN Reason: per Hypoglycemia Standing Ord. Last Admin: 12/01/21 19:53 Dose: 25 gm Documented By: PEPITO Docusate Sodium (Docusate Sodium 100 Mg Capsule) 100 mg PO DAILY [facility] Last Admin: 12/15/21 09:01 Dose: 100 mg Documented By: LES Dorzolamide HCl (Dorzolamide Hcl 2 % Ophth Mona 10 Ml Drpbtl) 1 drop EYE-RIGHT BID [facility] Last Admin: 12/15/21 11:44 Dose: Not Given Documented By: LES Non-Admin Reason: Med Not Available Escitalopram Oxalate (Escitalopram Oxalate 10 Mg Tablet) 10 mg PO DAILY [facility] Last Admin: 12/15/21 09:01 Dose: 10 mg Documented By: LES Fluconazole (Fluconazole 100 Mg Tablet) 100 mg PO DAILY [facility] Stop: 12/19/21 09:01 Furosemide (Furosemide 40 Mg Tablet) 40 mg PO DAILY [facility]; Protocol Heparin Sodium (Porcine) (Heparin Sodium,Porcine 5,000 Unit/Ml Vial) 5,000 unit SUBCUT Q8H [facility] Last Admin: 12/15/21 06:04 Dose: 5,000 unit Documented By: AKIL Hydralazine HCl (Hydralazine Hcl 50 Mg Tablet) 50 mg PO TID [facility]; Protocol Last Admin: 12/15/21 09:01 Dose: 50 mg Documented By: LES Dextrose (D5w) 1,000 mls @ 125 mls/hr IVCONT .Q8H [facility] Stop: 12/15/21 21:00 Last Admin: 12/15/21 11:39 Dose: 125 mls/hr Documented By: LES Insulin Glargine (Insulin Glargine,Hum.Rec.Anlog 100 Unit/Ml 10 Ml Vial) 15 unit SUBCUT DAILY [facility] Last Admin: 12/15/21 09:02 Dose: 15 unit Documented By: LES Insulin Human Lispro (Insulin Lispro 100 Unit/Ml 3 Ml Vial) 0 unit SUBCUT QIDACHS [facility]; Protocol Last Admin: 12/15/21 12:32 Dose: 13 unit Documented By: LES Latanoprost (Latanoprost 0.005 % Ophth Mona 2.5 Ml Drops) 1 drop EYE-BOTH BEDTIME [facility] Last Admin: 12/14/21 23:03 Dose: 1 drop Documented By: MARIA ALEJANDRA Levothyroxine Sodium (Levothyroxine Sodium 175 Mcg Tablet) 175 mcg PO DAILY@0600 [facility] Last Admin: 12/15/21 06:06 Dose: 175 mcg Documented By: AKIL Metoprolol Succinate (Metoprolol Succinate Er 100 Mg Tab.Er.24h) 100 mg PO DAILY [facility]; Protocol Last Admin: 12/15/21 09:00 Dose: 100 mg Documented By: LES Naloxone HCl (Naloxone Hcl 0.4 Mg/Ml Vial) 0.2 mg IVPUSH Q2M PRN PRN Reason: Excessive sedation or RR < 8 Non-Formulary Medication (Netarsudil-Latanoprost [Rocklatan]) 1 drop EYE-BOTH BEDTIME [facility] Nystatin (Nystatin Powder 15 Gm Bottle) 1 appl TOPICAL BID [facility]; Protocol Last Admin: 12/15/21 11:44 Dose: Not Given Documented By: LES Non-Admin Reason: Med Not Available Sitagliptin Phosphate (Sitagliptin Phosphate 100 Mg Tablet) 100 mg PO DAILY [facility] Last Admin: 12/15/21 09:02 Dose: 100 mg Documented By: LES Labs CBC & Chem 7: 12/15/21 06:21 12/15/21 06:21 Labs: Laboratory Results - last 24 hr 12/14/21 12/14/21 12/15/21 15:27 20:17 06:21 MCV 84.4 MCH 25.9 L MCHC 30.7 L RDW 18.0 H Plt Count 179 MPV 11.8 Absolute Nucleated RBC 0.000 Nucleated RBC % (auto) 0.0 Anion Gap Estim Creat Clear Calc Estimated GFR POC Glucose 158 H 142 H Random Glucose Calcium 12/15/21 12/15/21 12/15/21 06:21 07:09 11:27 MCV MCH MCHC RDW Plt Count MPV Absolute Nucleated RBC Nucleated RBC % (auto) Anion Gap 12 Estim Creat Clear Calc 80.1 Estimated GFR > 60 POC Glucose 177 H 252 H Random Glucose 196 H Calcium 8.8 D Microbiology Microbiology Results: Microbiology 11/25/21 09:30 Fungal Identification - Preliminary Pleural Fluid No growth after 2 weeks. Assessment and Plan (1) Toxic metabolic encephalopathy: Status: Acute (2) Urinary tract infection due to ESBL Klebsiella: Status: Acute (3) Hypernatremia: Status: Acute (4) Hypokalemia: Status: Acute Plan Year old female with past medical history of COPD on home oxygen, diabetes mellitus type 2, chronic kidney disease, congestive heart failure, hypertension, hyperlipidemia, hypothyroidism, PVD and recent COVID infection month ago presented to [facility] due to symptoms of shortness of breath and noted to have a finger oximetry of 68% on room air by EMS patient was brought to [facility] with sats of 79% on CPAP she was obtunded tachypneic and was emergently intubated chest x-ray showed bilateral infiltrates congestion CTA chest showed no pulmonary embolism showed multifocal areas of consolidation abdominal CT showed retroperitoneal and mediastinal lymphadenopathy enlarged right inguinal node patient was admitted to intensive care unit, patient was treated with diuretics complicated by LEO and chronic kidney disease, antibiotics and was diagnosed to have Klebsiella pneumonia UTI, and Klebsiella in bronchial washings, due to diffuse abdominal lymphadenopathy she underwent groin lymph node aspiration and EUS aspiration of mediastinal lymph nodes, patient subsequently extubated on 12/06/2021 her renal function is improving currently on nasal cannula with stable oxygenation patient downgraded to [facility] on 12/09/2021 Toxic metabolic encephalopathy Multifactorial, prolonged ICU stay, infection , hypothyroidism Improved significantly Noticed that she did not receive levothyroxine for almost 3 weeks since ICU admission TSH of 8.8 Continue home dose levothyroxine Follow TSH as outpatient Hypernatremia Sodium of 147 to give D5 and hold Lasix Encourage p.o. intake Hypokalemia Potassium of 3 Secondary to Lasix, to give replacement Follow BMP Acute on chronic diastolic heart failure resolved Hold Lasix today and restart tomorrow as 40 mg daily for now for hypernatremia Acute on chronic kidney disease stage III Resolved likely secondary to CHF exacerbation and due to tubular injury creatinine normalized to 0.97 Acute on chronic hypoxic respiratory failure secondary to CHF exacerbation and Klebsiella pneumonia patient was recently discharged home after COVID infection on oxygen 3 L with activity, currently on 2 L of oxygen finger oximetry 97% will gradually wean oxygen as tolerated. UTI due to Klebsiella pneumoniae Finished Levaquin day 10/10 reviewed antibiotic history patient treated with Zosyn 4.5 g q.6 hours from [id number] then received IV meropenem between 12 03 through 12 06 Levaquin was started on 12/04 500 mg and then 250 mg daily and then changed to 750 mg daily on 12/08 Lymphadenopathy status post aspiration findings are likely consistent with chronic lymphocytic leukemia/small lymphocytic lymphoma being followed by Dr. Ruiz Bilateral lung washings showed no malignancy To follow with Oncology as outpatient Uncontrolled hypertension Increase hydralazine to 50 mg t.i.d. Continue metoprolo and Amlodipinel Diabetes mellitus continue Lantus and insulin sliding scale, blood sugars stable Morbid obesity contributing to above medical issues low-calorie diet recommended Dysphagia followed by speech therapy on NDD 2 ground mechanical and nectar thick Need one-to-one embroidery assistant with meals Full code DVT prophylaxis heparin Patient need continued inpatient for treatment of electrolyte imbalance pending safe discharge plan. Quality Stroke Does the patient have a stroke diagnosis?: No VTE Prior VTE?: No VTE Risk Level:: Medical - moderate - high VTE Device Contraindication: Treatment Not Indicated VTE Drug Contraindication: N/A - Med Ordered
[2021-12-15 13:23] LABS: Anion Gap 15 (12-20); Blood Urea Nitrogen 28 mg/dL (9-16); Calcium 8.6 mg/dL (8.4-10.2); Carbon Dioxide 31 mmol/L (22-29); Chloride 103 mmol/L (96-108); Creatinine Clr Calc Pharmacy 74.4; Estimated Glomerular Filt Rate 56; Glucose Random 263 mg/dL (60-115); Potassium 3.4 mmol/L (3.3-5.1); Sodium 146 mmol/L (135-145)
[2021-12-15] MEDS: Acetaminophen Oral Liquid 650 MG/20.3 ML SOLUTION PO (13:50)
[2021-12-15 16:37] LABS: Glucose, Whole Blood 176 mg/dL (60-115)
[2021-12-15] MEDS: Atorvastatin Calcium 10 MG TABLET PO (20:16)
[2021-12-15] MEDS: Nystatin Powder 15 GM BOTTLE 1 APPL TOPICAL (20:17)
[2021-12-15 20:25] LABS: Glucose, Whole Blood 172 mg/dL (60-115)
[2021-12-15] MEDS: Brimonidine Tartrate 0.2% Oph 5 ML BOTTLE 1 DROP EYE-RIGHT (21:01)
[2021-12-15] MEDS: Dorzolamide HCl 2 % Ophth Sol 10 ML DRPBTL 1 DROP EYE-RIGHT (21:01)
[2021-12-15] MEDS: Latanoprost 0.005 % Ophth Sol 2.5 ML DROPS 1 DROP EYE-BOTH (21:02)
[2021-12-16] VITALS (8 sets, daily range): BP systolic 113–168; BP diastolic 65–74; PULSE 62–76; RESP 17–20; TEMP 36.1–37.1; O2SAT 94–100; BMI 49.8
[2021-12-16] MEDS: Heparin Sodium,Porcine 5,000 UNIT/ML VIAL 5000 UNIT SUBCUT ×4 (00:31→22:37)
[2021-12-16] MEDS: Levothyroxine Sodium 175 MCG TABLET PO (06:01)
[2021-12-16 07:24] LABS: Glucose, Whole Blood 234 mg/dL (60-115)
[2021-12-16] MEDS: Nystatin Powder 15 GM BOTTLE 1 APPL TOPICAL ×2 (07:48→22:37)
[2021-12-16] MEDS: Insulin Lispro 100 UNIT/ML 3 ML VIAL SUBCUT ×4 (07:48→22:38)
[2021-12-16] MEDS: Insulin Glargine,Hum.rec.anlog 100 UNIT/ML 10 ML VIAL 15 UNIT SUBCUT (07:49)
[2021-12-16] MEDS: Metoprolol Succinate ER 100 MG TAB.ER.24H PO (07:49)
[2021-12-16] MEDS: Aspirin 325 MG TABLET PO (07:50)
[2021-12-16] MEDS: hydrALAZINE HCl 50 MG TABLET PO ×3 (07:50→22:37)
[2021-12-16] MEDS: Furosemide 40 MG TABLET PO (07:50)
[2021-12-16] MEDS: Escitalopram Oxalate 10 MG TABLET PO (07:50)
[2021-12-16] MEDS: amLODIPine Besylate 10 MG TABLET PO (07:51)
[2021-12-16] MEDS: Docusate Sodium 100 MG CAPSULE PO (07:51)
[2021-12-16] MEDS: SITagliptin Phosphate 100 MG TABLET PO (07:51)
[2021-12-16] MEDS: Fluconazole 100 MG TABLET PO (07:51)
[2021-12-16] MEDS: Dorzolamide HCl 2 % Ophth Sol 10 ML DRPBTL 1 DROP EYE-RIGHT ×2 (07:52→22:39)
[2021-12-16] MEDS: Brimonidine Tartrate 0.2% Oph 5 ML BOTTLE 1 DROP EYE-RIGHT ×2 (07:53→22:38)
[2021-12-16] MEDS: Dextrose 5 % 1,000 ML 100 ML IVCONT ×2 (08:41→17:53)
[2021-12-16 11:01] LABS: Glucose, Whole Blood 210 mg/dL (60-115)
--- NOTE | 2021-12-16 11:51 | P.PNIM_ITS ---
Subjective Subjective Date of Service: 12/16/21 Interval History: cc: sob interval history:no complaints Respiratory Respiratory: Reports no additional respiratory complaints Gastrointestinal Gastrointestinal: Reports no additional gastrointestinal complaints Physical Exam Vital Signs: Vital Signs: Last Vital Signs Temp 98 F 12/16/21 11:16 Pulse 67 12/16/21 11:16 Resp 17 12/16/21 11:16 BP 138/65 12/16/21 11:16 Pulse Ox 98 12/16/21 11:16 O2 Del Method 12/16/21 11:16 O2 Flow Rate 1 12/16/21 11:16 FiO2 35 12/08/21 13:00 Oxygen Flow Rate 1 12/16/21 07:00 BMI result Body Mass Index 49.8 Const: Other: Constitutional : Alert, not in distress, morbidly obese Neck : Normal inspection, Supple Cardiovascular : RRR, no JVP, trace bilateral lower extremity edema Respiratory : fair bilateral air entry, no crackles, wheezes or rhonchi, on oxygen supplement Gastrointestinal: soft, lax, Normal bowel sounds, Non tender Skin : Warm, Dry, chronic venous discoloration lower extremities Neurological : Alert & orientedx3, No focal deficit Objective Data Active Medications Acetaminophen (Acetaminophen Oral Liquid 650 Mg/20.3 Ml Solution) 650 mg PO Q6H PRN PRN Reason: Fever >101 Last Admin: 12/15/21 13:50 Dose: 650 mg Documented By: LES Amlodipine Besylate (Amlodipine Besylate 10 Mg Tablet) 10 mg PO DAILY [facility]; Protocol Last Admin: 12/16/21 07:51 Dose: 10 mg Documented By: KARLOS Aspirin (Aspirin 325 Mg Tablet) 325 mg PO DAILY [facility] Last Admin: 12/16/21 07:50 Dose: 325 mg Documented By: KARLOS Atorvastatin Calcium (Atorvastatin Calcium 10 Mg Tablet) 10 mg PO BEDTIME [facility] Last Admin: 12/15/21 20:16 Dose: 10 mg Documented By: ELGIN Brimonidine Tartrate (Brimonidine Tartrate 0.2% Oph 5 Ml Bottle) 1 drop EYE-RIG HT BID [facility] Last Admin: 12/16/21 07:53 Dose: 1 drop Documented By: KARLOS Dextrose (Dextrose 50 % 25 Gm/50 Ml Syringe) 25 gm IVPUSH Q15M PRN; Protocol PRN Reason: per Hypoglycemia Standing Ord. Last Admin: 12/01/21 19:53 Dose: 25 gm Documented By: PEPITO Docusate Sodium (Docusate Sodium 100 Mg Capsule) 100 mg PO DAILY [facility] Last Admin: 12/16/21 07:51 Dose: 100 mg Documented By: KARLOS Dorzolamide HCl (Dorzolamide Hcl 2 % Ophth Mona 10 Ml Drpbtl) 1 drop EYE-RIGHT BID [facility] Last Admin: 12/16/21 07:52 Dose: 1 drop Documented By: KARLOS Escitalopram Oxalate (Escitalopram Oxalate 10 Mg Tablet) 10 mg PO DAILY [facility] Last Admin: 12/16/21 07:50 Dose: 10 mg Documented By: KARLOS Fluconazole (Fluconazole 100 Mg Tablet) 100 mg PO DAILY [facility] Stop: 12/19/21 09:01 Last Admin: 12/16/21 07:51 Dose: 100 mg Documented By: KARLOS Furosemide (Furosemide 40 Mg Tablet) 40 mg PO DAILY [facility]; Protocol Last Admin: 12/16/21 07:50 Dose: 40 mg Documented By: KARLOS Heparin Sodium (Porcine) (Heparin Sodium,Porcine 5,000 Unit/Ml Vial) 5,000 unit SUBCUT Q8H [facility] Last Admin: 12/16/21 06:01 Dose: 5,000 unit Documented By: ELGIN Hydralazine HCl (Hydralazine Hcl 50 Mg Tablet) 50 mg PO TID [facility]; Protocol Last Admin: 12/16/21 07:50 Dose: 50 mg Documented By: KARLOS Dextrose (D5w) 1,000 mls @ 100 mls/hr IVCONT .Q10H [facility] Last Admin: 12/16/21 08:41 Dose: 100 mls/hr Documented By: KARLOS Insulin Glargine (Insulin Glargine,Hum.Rec.Anlog 100 Unit/Ml 10 Ml Vial) 15 unit SUBCUT DAILY [facility] Last Admin: 12/16/21 07:49 Dose: 15 unit Documented By: KARLOS Insulin Human Lispro (Insulin Lispro 100 Unit/Ml 3 Ml Vial) 0 unit SUBCUT Q IDACHS [facility]; Protocol Last Admin: 12/16/21 07:48 Dose: 9 unit Documented By: KARLOS Latanoprost (Latanoprost 0.005 % Ophth Mona 2.5 Ml Drops) 1 drop EYE-BOTH BEDTIME [facility] Last Admin: 12/15/21 21:02 Dose: 1 drop Documented By: ELGIN Levothyroxine Sodium (Levothyroxine Sodium 175 Mcg Tablet) 175 mcg PO DAILY@0600 [facility] Last Admin: 12/16/21 06:01 Dose: 175 mcg Documented By: ELGIN Metoprolol Succinate (Metoprolol Succinate Er 100 Mg Tab.Er.24h) 100 mg PO DAILY [facility]; Protocol Last Admin: 12/16/21 07:49 Dose: 100 mg Documented By: KARLOS Naloxone HCl (Naloxone Hcl 0.4 Mg/Ml Vial) 0.2 mg IVPUSH Q2M PRN PRN Reason: Excessive sedation or RR < 8 Non-Formulary Medication (Netarsudil-Latanoprost [Rocklatan]) 1 drop EYE-BOTH BEDTIME [facility] Nystatin (Nystatin Powder 15 Gm Bottle) 1 appl TOPICAL BID [facility]; Protocol Last Admin: 12/16/21 07:48 Dose: 1 appl Documented By: KARLOS Sitagliptin Phosphate (Sitagliptin Phosphate 100 Mg Tablet) 100 mg PO DAILY [facility] Last Admin: 12/16/21 07:51 Dose: 100 mg Documented By: KARLOS Labs CBC & Chem 7: 12/15/21 06:21 12/15/21 12:59 Labs: Laboratory Results - last 24 hr 12/15/21 12/15/21 12/15/21 12:59 16:33 20:16 Anion Gap 15 Estim Creat Clear Calc 74.4 Estimated GFR 56 POC Glucose 176 H 172 H Random Glucose 263 H Calcium 8.6 12/16/21 12/16/21 07:20 10:58 Anion Gap Estim Creat Clear Calc Estimated GFR POC Glucose 234 H 210 H Random Glucose Calcium Assessment and Plan (1) Toxic metabolic encephalopathy: Status: Acute (2) Urinary tract infection due to ESBL Klebsiella: Status: Acute (3) Hypernatremia: Status: Acute (4) Hypokalemia: Status: Acute Plan Year old female with past medical history of COPD on home oxygen, diabetes mellitus type 2, chronic kidney disease, congestive heart failure, hypertension, hyperlipidemia, hypothyroidism, PVD and recent COVID infection month ago presented to [facility] due to symptoms of shortness of breath and noted to have a finger oximetry of 68% on room air by EMS patient was brought to [facility] with sats of 79% on CPAP she was obtunded tachypneic and was emergently intubated chest x-ray showed bilateral infiltrates congestion CTA chest showed no pulmonary embolism showed multifocal areas of consolidation abdominal CT showed retroperitoneal and mediastinal lymphadenopathy enlarged right inguinal node patient was admitted to intensive care unit, patient was treated with diuretics complicated by LEO and chronic kidney disease, antibiotics and was diagnosed to have Klebsiella pneumonia UTI, and Klebsiella in bronchial washings, due to diffuse abdominal lymphadenopathy she underwent groin lymph node aspiration and EUS aspiration of mediastinal lymph nodes, patient subsequently extubated on 12/06/2021 her renal function back to normal. currently on nasal cannula with stable oxygenation patient downgraded to [facility] on 12/09/2021 Toxic metabolic encephalopathy Multifactorial, prolonged ICU stay, infection , hypothyroidism Improved significantly Noticed that she did not receive levothyroxine for almost 3 weeks since ICU admission TSH of 8.8 Continue home dose levothyroxine Follow TSH as outpatient Hypernatremia Sodium of 146 to give D5, monitor Encourage p.o. intake Hypokalemia replaced Follow BMP Acute on chronic diastolic heart failure resolved, continue maintance lasix Acute on chronic kidney disease stage III Resolved likely secondary to CHF exacerbation and due to tubular injury creatinine normalized Acute on chronic hypoxic respiratory failure secondary to CHF exacerbation and Klebsiella pneumonia patient was recently discharged home after COVID infection on oxygen 3 L with activity, currently on 2 L of oxygen finger oximetry 97% will gradually wean oxygen as tolerated. UTI due to Klebsiella pneumoniae Finished Levaquin day 01/11 patient treated with Zosyn 4.5 g q.6 hours from [id number] then received IV meropenem between 12 03 through 12 06 Levaquin was started on 12/04 500 mg and then 250 mg daily and then changed to 750 mg daily on 12/08 Lymphadenopathy status post aspiration findings are likely consistent with chronic lymphocytic leukemia/small lymphocytic lymphoma being followed by Dr. Ruiz Bilateral lung washings showed no malignancy To follow with Oncology as outpatient Uncontrolled hypertension Increase hydralazine to 50 mg t.i.d. Continue metoprolo and Amlodipinel Diabetes mellitus continue Lantus and insulin sliding scale, blood sugars stable Morbid obesity contributing to above medical issues low-calorie diet recommended Dysphagia followed by speech therapy on NDD 2 ground mechanical and nectar thick Need one-to-one law office assistant with meals Full code DVT prophylaxis heparin Patient need continued inpatient for treatment of electrolyte imbalance pending safe discharge plan. Quality Stroke Does the patient have a stroke diagnosis?: No VTE Prior VTE?: No VTE Risk Level:: Medical - moderate - high VTE Device Contraindication: Treatment Not Indicated VTE Drug Contraindication: N/A - Med Ordered
--- NOTE | 2021-12-16 11:51 | MHC.SL.SWA ---
Speech Pathologist Impression: Oropharyngeal phase dysphagia Risk of Aspiration Due to: Medically Fragile History of Pneumonia Hx of Recent Extubation Dysphasia Diet Status: No change Liquid Consistency and Strategies for Safe Swallow: Liquid Intake Recommendation: Thin Liquid Intake Strategies: Small Sips No Straws Solid Food Consistency: Dietary Recommendations: Grnd/Mech Altered (NDD2) Additional Modifications to Solid Foods: Patient required 1-1 feed. Assure that patient has swallowed and is not pocketing food, before presenting additional food, alternate liquids and solids. Oral Medication Intake: Whole with Puree Please contact the pharmacy regarding appropriate crushable or liquid drug formulations that are available whenever modified delivery is recommended. Compensatory Strategies and Precautions to be Taken for Safe Swallow: Sitting Upright (90 deg) No Straw Liquids from Cup Small Bites and Sips Alternate Liquids/Solids Rate of Ingestion Change Oral Check Supervision While Eating and Drinking for Safe Swallow: Total Assistance (1:1) Foods to Avoid: Mixed consistencies: Blend sauces or gravies into ground food well. Swallowing Recommended Treatments: Compens. Strategy Educat. Recommendation for Speech: Inpatient Speech Therapy Supervisor Printing Shop Clinican/Clinical Fellow: No Supervisory Statement: I have reviewed and agree with the student/clinical fellow's documentation: N/A Speech Language Pathologist: Dory Gomez M.A., CCC-ADOPTION SOCIAL WORKER
[2021-12-16] MEDS: Butalb/Acetamin/Caff 50/325/40 TABLET 1 TAB PO (12:44)
--- NOTE | 2021-12-16 13:18 | MHC.CLN ---
F/U PO INTAKE SLIGHTLY IMPROVED 75% DIET RX: 2200DM GRD M/S -APPROPRIATE PT RECEIVING GLUCERNA SUPPLEMENTS BID TO INCREASE KCALS AND PROMOTE WOUND HEALING SUPP PROVIDES [id number], 20G PROTEIN CONTINUE TO MONITOR PO INTAKE CLOSELY
[2021-12-16 16:19] LABS: Glucose, Whole Blood 171 mg/dL (60-115)
[2021-12-16 19:40] LABS: Glucose, Whole Blood 159 mg/dL (60-115)
[2021-12-16] MEDS: Atorvastatin Calcium 10 MG TABLET PO (22:37)
[2021-12-16] MEDS: Latanoprost 0.005 % Ophth Sol 2.5 ML DROPS 1 DROP EYE-BOTH (22:40)
[2021-12-17 03:40] VITALS: BP 129/60; PULSE 62; RESP 20; TEMP 36.5; O2SAT 96
[2021-12-17] MEDS: Heparin Sodium,Porcine 5,000 UNIT/ML VIAL 5000 UNIT SUBCUT ×3 (05:50→23:28)
[2021-12-17] MEDS: Butalb/Acetamin/Caff 50/325/40 TABLET 1 TAB PO ×3 (05:50→21:03)
[2021-12-17] MEDS: Levothyroxine Sodium 175 MCG TABLET PO (05:51)
[2021-12-17 06:57] LABS: Hematocrit 38.2 % (37.0-47.0); Hemoglobin 11.7 g/dl (12.0-16.0); Mean Corpuscular HGB Conc 30.6 g/dl (31.0-35.0); Mean Corpuscular Hemoglobin 25.7 pg (27.0-33.0); Mean Corpuscular Volume 83.8 fL (80.0-98.0); Mean Platelet Volume 12.5 fL (9.4-12.3); Platelet Count 158 X10*3/uL (160-400); Red Blood Count 4.56 X10*6/uL (4.20-5.50); Red Cell Distribution Width 17.3 % (11.0-16.0); White Blood Count 12.6 X10*3/uL (4.8-10.8)
[2021-12-17 07:11] LABS: Anion Gap 16 (12-20); Blood Urea Nitrogen 22 mg/dL (9-16); Calcium 8.7 mg/dL (8.4-10.2); Carbon Dioxide 30 mmol/L (22-29); Chloride 99 mmol/L (96-108); Creatinine Clr Calc Pharmacy 96.3; Estimated Glomerular Filt Rate > 60; Glucose Fasting 172 mg/dL (60-99); Potassium 3.4 mmol/L (3.3-5.1); Sodium 142 mmol/L (135-145)
[2021-12-17 07:29] VITALS: BP 175/70; PULSE 73; RESP 20; TEMP 36; O2SAT 98
[2021-12-17 07:40] LABS: Glucose, Whole Blood 192 mg/dL (60-115)
[2021-12-17] MEDS: Insulin Lispro 100 UNIT/ML 3 ML VIAL SUBCUT ×2 (07:53→15:47)
[2021-12-17] MEDS: Insulin Glargine,Hum.rec.anlog 100 UNIT/ML 10 ML VIAL 15 UNIT SUBCUT (07:54)
[2021-12-17] MEDS: Potassium Chloride ER 20 MEQ TAB.ER.PRT 40 MEQ PO (07:55)
[2021-12-17] MEDS: SITagliptin Phosphate 100 MG TABLET PO (07:56)
[2021-12-17] MEDS: amLODIPine Besylate 10 MG TABLET PO (07:56)
[2021-12-17] MEDS: Metoprolol Succinate ER 100 MG TAB.ER.24H PO (07:56)
[2021-12-17] MEDS: Docusate Sodium 100 MG CAPSULE PO (07:56)
[2021-12-17] MEDS: Furosemide 40 MG TABLET PO (07:56)
[2021-12-17] MEDS: hydrALAZINE HCl 50 MG TABLET PO ×3 (07:56→20:45)
[2021-12-17] MEDS: Aspirin 325 MG TABLET PO (07:56)
[2021-12-17] MEDS: Fluconazole 100 MG TABLET PO (07:57)
[2021-12-17] MEDS: Escitalopram Oxalate 10 MG TABLET PO (07:57)
[2021-12-17] MEDS: Brimonidine Tartrate 0.2% Oph 5 ML BOTTLE 1 DROP EYE-RIGHT ×2 (10:35→20:46)
[2021-12-17] MEDS: Dorzolamide HCl 2 % Ophth Sol 10 ML DRPBTL 1 DROP EYE-RIGHT ×2 (10:35→20:46)
--- NOTE | 2021-12-17 10:43 | MHC.SLORD ---
Addendum entered and electronically signed by Dory Gomez MA, CCC-DELI CUTTER SLICER 12/29/21 10:46: D.S. Original Note: Speech Language Pathology Order Status: DELI CUTTER SLICER attempted to see pt this morning for bedside dysphagia treatment. Checked in with RN upon arrival. RN reported pills crushed in puree went well this morning. RN reported pt very lethargic today. Pt awoke to verbal stimuli momentarily upon DELI CUTTER SLICER's arrival in room. Pt stated yes when asked if she wanted something to eat and drink. Pt's eyes remained closed and pt did not verbally respond when encouraged to open eyes if pt wanted to partake in PO trials. Pt's breakfast tray still in room: ground pancakes, ground eggs. Pt did not appear to eat much from the tray. Pt removed straws and thickener from pt's tray. Notes on board reflect correct and current diet status. DELI CUTTER SLICER left grape juice on tray for pt. Pt not appropriate for PO trials d/t lethargic state.
[2021-12-17 11:06] VITALS: BP 131/60; PULSE 63; RESP 20; TEMP 36.4; O2SAT 98
[2021-12-17 11:14] LABS: Glucose, Whole Blood 157 mg/dL (60-115)
--- NOTE | 2021-12-17 11:53 | HO.PM.IMPN ---
Subjective Subjective Date of Service: 12/17/21 Interval History: cc: sob interval history:no complaints Respiratory Respiratory: Reports no additional respiratory complaints Gastrointestinal Gastrointestinal: Reports no additional gastrointestinal complaints Physical Exam Vital Signs: Vital Signs: Last Vital Signs Temp 97.6 F 12/17/21 11:06 Pulse 63 12/17/21 11:06 Resp 20 12/17/21 11:06 BP 131/60 12/17/21 11:06 Pulse Ox 98 12/17/21 11:06 O2 Del Method 12/17/21 11:06 O2 Flow Rate 1 12/17/21 11:06 FiO2 35 12/08/21 13:00 Oxygen Flow Rate 1 12/16/21 07:00 BMI result Body Mass Index 49.8 Const: Other: Constitutional : Alert, not in distress, morbidly obese Neck : Normal inspection, Supple Cardiovascular : RRR, no JVP, trace bilateral lower extremity edema Respiratory : fair bilateral air entry, no crackles, wheezes or rhonchi, on oxygen supplement Gastrointestinal: soft, lax, Normal bowel sounds, Non tender Skin : Warm, Dry, chronic venous discoloration lower extremities Neurological : Alert & orientedx3, No focal deficit Objective Data Active Medications Acetaminophen (Acetaminophen Oral Liquid 650 Mg/20.3 Ml Solution) 650 mg PO Q6H PRN PRN Reason: Fever >101 Last Admin: 12/15/21 13:50 Dose: 650 mg Documented By: LES Acetaminophen/Butalbital/Caffeine (Butalb/Acetamin/Caff 50/325/40 Tablet) 1 tab PO Q4H PRN PRN Reason: migraine Last Admin: 12/17/21 05:50 Dose: 1 tab Documented By: KAYLA Amlodipine Besylate (Amlodipine Besylate 10 Mg Tablet) 10 mg PO DAILY [facility]; Protocol Last Admin: 12/17/21 07:56 Dose: 10 mg Documented By: ITA Aspirin (Aspirin 325 Mg Tablet) 325 mg PO DAILY [facility] Last Admin: 12/17/21 07:56 Dose: 325 mg Documented By: ITA Atorvastatin Calcium (Atorvastatin Calcium 10 Mg Tablet) 10 mg PO BEDTIME [facility] Last Admin: 12/16/21 22:37 Dose: 10 mg Documented By: KAYLA Brimonidine Tartrate (Brimonidine Tartrate 0.2% Oph 5 Ml Bottle) 1 drop EYE-RIGHT BID [facility] Last Admin: 12/17/21 10:35 Dose: 1 drop Documented By: ITA Dextrose (Dextrose 50 % 25 Gm/50 Ml Syringe) 25 gm IVPUSH Q15M PRN; Protocol PRN Reason: per Hypoglycemia Standing Ord. Last Admin: 12/01/21 19:53 Dose: 25 gm Documented By: PEPITO Docusate Sodium (Docusate Sodium 100 Mg Capsule) 100 mg PO DAILY [facility] Last Admin: 12/17/21 07:56 Dose: 100 mg Documented By: ITA Dorzolamide HCl (Dorzolamide Hcl 2 % Ophth Mona 10 Ml Drpbtl) 1 drop EYE-RIGHT BID [facility] Last Admin: 12/17/21 10:35 Dose: 1 drop Documented By: ITA Escitalopram Oxalate (Escitalopram Oxalate 10 Mg Tablet) 10 mg PO DAILY [facility] Last Admin: 12/17/21 07:57 Dose: 10 mg Documented By: ITA Fluconazole (Fluconazole 100 Mg Tablet) 100 mg PO DAILY [facility] Stop: 12/19/21 09:01 Last Admin: 12/17/21 07:57 Dose: 100 mg Documented By: ITA Furosemide (Furosemide 40 Mg Tablet) 40 mg PO DAILY [facility]; Protocol Last Admin: 12/17/21 07:56 Dose: 40 mg Documented By: ITA Heparin Sodium (Porcine) (Heparin Sodium,Porcine 5,000 Unit/Ml Vial) 5,000 unit SUBCUT Q8H [facility] Last Admin: 12/17/21 05:50 Dose: 5,000 unit Documented By: KAYLA Hydralazine HCl (Hydralazine Hcl 50 Mg Tablet) 50 mg PO TID [facility]; Protocol Last Admin: 12/17/21 07:56 Dose: 50 mg Documented By: ITA Insulin Glargine (Insulin Glargine,Hum.Rec.Anlog 100 Unit/Ml 10 Ml Vial) 15 unit SUBCUT DAILY [facility] Last Admin: 12/17/21 07:54 Dose: 15 unit Documented By: ITA Insulin Human Lispro (Insulin Lispro 100 Unit/Ml 3 Ml Vial) 0 unit SUBCUT QIDACHS [facility]; Protocol Last Admin: 12/17/21 11:42 Dose: Not Given Documented By: ITA Non-Admin Reason: NPO Comments: pt lethargic refusing po intake Latanoprost (Latanoprost 0.005 % Ophth Mona 2.5 Ml Drops) 1 drop EYE-BOTH BEDTIME [facility] Last Admin: 12/16/21 22:40 Dose: 1 drop Documented By: KAYLA Levothyroxine Sodium (Levothyroxine Sodium 175 Mcg Tablet) 175 mcg PO DAILY@0600 [facility] Last Admin: 12/17/21 05:51 Dose: 175 mcg Documented By: KAYLA Metoprolol Succinate (Metoprolol Succinate Er 100 Mg Tab.Er.24h) 100 mg PO DAILY [facility]; Protocol Last Admin: 12/17/21 07:56 Dose: 100 mg Documented By: ITA Naloxone HCl (Naloxone Hcl 0.4 Mg/Ml Vial) 0.2 mg IVPUSH Q2M PRN PRN Reason: Excessive sedation or RR < 8 Non-Formulary Medication (Netarsudil-Latanoprost [Rocklatan]) 1 drop EYE-BOTH BEDTIME [facility] Nystatin (Nystatin Powder 15 Gm Bottle) 1 appl TOPICAL BID [facility]; Protocol Last Admin: 12/17/21 10:12 Dose: Not Given Documented By: ITA Non-Admin Reason: Patient Asleep Sitagliptin Phosphate (Sitagliptin Phosphate 100 Mg Tablet) 100 mg PO DAILY [facility] Last Admin: 12/17/21 07:56 Dose: 100 mg Documented By: ITA Labs CBC & Chem 7: 12/17/21 06:24 12/17/21 06:24 Labs: Laboratory Results - last 24 hr 12/16/21 12/16/21 12/17/21 16:12 19:34 06:24 MCV 83.8 MCH 25.7 L MCHC 30.6 L RDW 17.3 H Plt Count 158 L MPV 12.5 H Absolute Nucleated RBC 0.000 Nucleated RBC % (auto) 0.0 Anion Gap Estim Creat Clear Calc Estimated GFR POC Glucose 171 H 159 H Fasting Glucose Calcium 12/17/21 12/17/21 12/17/21 06:24 07:32 11:08 MCV MCH MCHC RDW Plt Count MPV Absolute Nucleated RBC Nucleated RBC % (auto) Anion Gap 16 Estim Creat Clear Calc 96.3 Estimated GFR > 60 POC Glucose 192 H 157 H Fasting Glucose 172 H Calcium 8.7 Assessment and Plan (1) Toxic metabolic encephalopathy: Status: Acute (2) Urinary tract infection due to ESBL Klebsiella: Status: Acute (3) Hypernatremia: Status: Acute (4) Hypokalemia: Status: Acute Plan Year old female with past medical history of COPD on home oxygen, diabetes mellitus type 2, chronic kidney disease, congestive heart failure, hypertension, hyperlipidemia, hypothyroidism, PVD and recent COVID infection month ago presented to [facility] due to symptoms of shortness of breath and noted to have a finger oximetry of 68% on room air by EMS patient was brought to [facility] with sats of 79% on CPAP she was obtunded tachypneic and was emergently intubated chest x-ray showed bilateral infiltrates congestion CTA chest showed no pulmonary embolism showed multifocal areas of consolidation abdominal CT showed retroperitoneal and mediastinal lymphadenopathy enlarged right inguinal node patient was admitted to intensive care unit, patient was treated with diuretics complicated by LEO and chronic kidney disease, antibiotics and was diagnosed to have Klebsiella pneumonia UTI, and Klebsiella in bronchial washings, due to diffuse abdominal lymphadenopathy she underwent groin lymph node aspiration and EUS aspiration of mediastinal lymph nodes, patient subsequently extubated on 12/06/2021 her renal function back to normal. currently on nasal cannula with stable oxygenation patient downgraded to C on 12/09/2021 Toxic metabolic encephalopathy Multifactorial, prolonged ICU stay, infection , hypothyroidism Improved significantly Noticed that she did not receive levothyroxine for almost 3 weeks since ICU admission TSH of 8.8 Continue home dose levothyroxine Follow TSH as outpatient Hypernatremia resolved with fluids Sodium now 142 Encourage p.o. intake Hypokalemia replaced Acute on chronic diastolic heart failure resolved, continue maintenance lasix Acute on chronic kidney disease stage III Resolved likely secondary to CHF exacerbation and due to tubular injury creatinine normalized Acute on chronic hypoxic respiratory failure secondary to CHF exacerbation and Klebsiella pneumonia patient was recently discharged home after COVID infection on oxygen 3 L with activity, currently on 2 L of oxygen finger oximetry 97% will gradually wean oxygen as tolerated. UTI due to Klebsiella pneumoniae Finished Levaquin day 01/11 patient treated with Zosyn 4.5 g q.6 hours from [id number] then received IV meropenem between 12 03 through 12 06 Levaquin was started on 12/04 500 mg and then 250 mg daily and then changed to 750 mg daily on 12/08 Lymphadenopathy status post aspiration findings are likely consistent with chronic lymphocytic leukemia/small lymphocytic lymphoma being followed by Dr. Ruiz Bilateral lung washings showed no malignancy To follow with Oncology as outpatient Uncontrolled hypertension Increase hydralazine to 50 mg t.i.d. Continue metoprolo and Amlodipinel Diabetes mellitus continue Lantus and insulin sliding scale, blood sugars stable Morbid obesity contributing to above medical issues low-calorie diet recommended Dysphagia followed by speech therapy on NDD 2 ground mechanical and nectar thick Need one-to-one speech language pathology assistant with meals Full code DVT prophylaxis heparin Patient need continued inpatient for treatment of electrolyte imbalance pending safe discharge plan. Quality Stroke Does the patient have a stroke diagnosis?: No VTE Prior VTE?: No VTE Risk Level:: Medical - moderate - high VTE Device Contraindication: Treatment Not Indicated VTE Drug Contraindication: N/A - Med Ordered
[2021-12-17 15:24] VITALS: BP 160/70; PULSE 65; RESP 18
[2021-12-17 15:34] VITALS: PULSE 99; RESP 17; TEMP 37.1; O2SAT 98
[2021-12-17 15:37] LABS: Glucose, Whole Blood 223 mg/dL (60-115)
[2021-12-17 19:38] VITALS: BP 137/64; PULSE 67; RESP 20; TEMP 37.1; O2SAT 95
[2021-12-17 19:56] LABS: Glucose, Whole Blood 162 mg/dL (60-115)
[2021-12-17] MEDS: Atorvastatin Calcium 10 MG TABLET PO (20:45)
[2021-12-17] MEDS: Latanoprost 0.005 % Ophth Sol 2.5 ML DROPS 1 DROP EYE-BOTH (20:46)
[2021-12-17] MEDS: Nystatin Powder 15 GM BOTTLE 1 APPL TOPICAL (20:48)
[2021-12-18] VITALS (9 sets, daily range): BP systolic 127–162; BP diastolic 60–76; PULSE 61–89; RESP 14–20; TEMP 36–37.2; O2SAT 97–100; BMI 48.2
[2021-12-18] MEDS: Levothyroxine Sodium 175 MCG TABLET PO (05:42)
[2021-12-18 07:17] LABS: Glucose, Whole Blood 203 mg/dL (60-115)
[2021-12-18] MEDS: Heparin Sodium,Porcine 5,000 UNIT/ML VIAL 5000 UNIT SUBCUT ×2 (08:23→15:24)
[2021-12-18] MEDS: Insulin Glargine,Hum.rec.anlog 100 UNIT/ML 10 ML VIAL 15 UNIT SUBCUT (08:23)
[2021-12-18] MEDS: Insulin Lispro 100 UNIT/ML 3 ML VIAL SUBCUT ×2 (08:24→12:10)
[2021-12-18] MEDS: amLODIPine Besylate 10 MG TABLET PO (08:25)
[2021-12-18] MEDS: Fluconazole 100 MG TABLET PO (08:25)
[2021-12-18] MEDS: Escitalopram Oxalate 10 MG TABLET PO (08:25)
[2021-12-18] MEDS: Aspirin 325 MG TABLET PO (08:25)
[2021-12-18] MEDS: SITagliptin Phosphate 100 MG TABLET PO (08:25)
[2021-12-18] MEDS: Docusate Sodium 100 MG CAPSULE PO (08:25)
[2021-12-18] MEDS: Furosemide 40 MG TABLET PO (08:25)
[2021-12-18] MEDS: Metoprolol Succinate ER 100 MG TAB.ER.24H PO (08:26)
[2021-12-18] MEDS: hydrALAZINE HCl 50 MG TABLET PO ×3 (08:26→20:55)
[2021-12-18] MEDS: Brimonidine Tartrate 0.2% Oph 5 ML BOTTLE 1 DROP EYE-RIGHT ×2 (08:26→20:56)
[2021-12-18] MEDS: Dorzolamide HCl 2 % Ophth Sol 10 ML DRPBTL 1 DROP EYE-RIGHT ×2 (08:27→20:56)
[2021-12-18] MEDS: Nystatin Powder 15 GM BOTTLE 1 APPL TOPICAL ×2 (08:27→20:55)
--- NOTE | 2021-12-18 10:37 | P.PNIM_ITS ---
Subjective Subjective Date of Service: 12/18/21 Interval History: cc: sob interval history:no complaints Respiratory Respiratory: Reports no additional respiratory complaints Gastrointestinal Gastrointestinal: Reports no additional gastrointestinal complaints Physical Exam Vital Signs: Vital Signs: Last Vital Signs Temp 97.0 F 12/18/21 07:14 Pulse 73 12/18/21 08:59 Resp 20 12/18/21 07:14 BP 162/67 H 12/18/21 08:59 Pulse Ox 98 12/18/21 08:59 O2 Del Method 12/18/21 07:14 O2 Flow Rate 1 12/18/21 07:14 FiO2 35 12/08/21 13:00 Oxygen Flow Rate 1 12/18/21 07:00 BMI result Body Mass Index 48.2 Const: Other: Constitutional : Alert, not in distress, morbidly obese Neck : Normal inspection, Supple Cardiovascular : RRR, no JVP, trace bilateral lower extremity edema Respiratory : fair bilateral air entry, no crackles, wheezes or rhonchi, on oxygen supplement Gastrointestinal: soft, lax, Normal bowel sounds, Non tender Skin : Warm, Dry, chronic venous discoloration lower extremities Neurological : Alert & orientedx3, No focal deficit Objective Data Active Medications Acetaminophen (Acetaminophen Oral Liquid 650 Mg/20.3 Ml Solution) 650 mg PO Q6H PRN PRN Reason: Fever >101 Last Admin: 12/15/21 13:50 Dose: 650 mg Documented By: LES Acetaminophen/Butalbital/Caffeine (Butalb/Acetamin/Caff 50/325/40 Tablet) 1 tab PO Q4H PRN PRN Reason: migraine Last Admin: 12/17/21 21:03 Dose: 1 tab Documented By: CATHIE Amlodipine Besylate (Amlodipine Besylate 10 Mg Tablet) 10 mg PO DAILY [facility]; Protocol Last Admin: 12/18/21 08:25 Dose: 10 mg Documented By: ALISON Aspirin (Aspirin 325 Mg Tablet) 325 mg PO DAILY [facility] Last Admin: 12/18/21 08:25 Dose: 325 mg Documented By: ALISON Atorvastatin Calcium (Atorvastatin Calcium 10 Mg Tablet) 10 mg PO BEDTIME [facility] Last Admin: 12/17/21 20:45 Dose: 10 mg Documented By: CATHIE Brimonidine Tartrate (Brimonidine Tartrate 0.2% Oph 5 Ml Bottle) 1 drop EYE- RIGHT BID [facility] Last Admin: 12/18/21 08:26 Dose: 1 drop Documented By: ALISON Dextrose (Dextrose 50 % 25 Gm/50 Ml Syringe) 25 gm IVPUSH Q15M PRN; Protocol PRN Reason: per Hypoglycemia Standing Ord. Last Admin: 12/01/21 19:53 Dose: 25 gm Documented By: PEPITO Docusate Sodium (Docusate Sodium 100 Mg Capsule) 100 mg PO DAILY [facility] Last Admin: 12/18/21 08:25 Dose: 100 mg Documented By: ALISON Dorzolamide HCl (Dorzolamide Hcl 2 % Ophth Mona 10 Ml Drpbtl) 1 drop EYE-RIGHT BID [facility] Last Admin: 12/18/21 08:27 Dose: 1 drop Documented By: ALISON Escitalopram Oxalate (Escitalopram Oxalate 10 Mg Tablet) 10 mg PO DAILY [facility] Last Admin: 12/18/21 08:25 Dose: 10 mg Documented By: ALISON Fluconazole (Fluconazole 100 Mg Tablet) 100 mg PO DAILY [facility] Stop: 12/19/21 09:01 Last Admin: 12/18/21 08:25 Dose: 100 mg Documented By: ALISON Furosemide (Furosemide 40 Mg Tablet) 40 mg PO DAILY [facility]; Protocol Last Admin: 12/18/21 08:25 Dose: 40 mg Documented By: ALISON Heparin Sodium (Porcine) (Heparin Sodium,Porcine 5,000 Unit/Ml Vial) 5,000 unit SUBCUT Q8H [facility] Last Admin: 12/18/21 08:23 Dose: 5,000 unit Documented By: ALISON Hydralazine HCl (Hydralazine Hcl 50 Mg Tablet) 50 mg PO TID [facility]; Protocol Last Admin: 12/18/21 08:26 Dose: 50 mg Documented By: ALISON Insulin Glargine (Insulin Glargine,Hum.Rec.Anlog 100 Unit/Ml 10 Ml Vial) 15 unit SUBCUT DAILY [facility] Last Admin: 12/18/21 08:23 Dose: 15 unit Documented By: ALISON Insulin Human Lispro (Insulin Lispro 100 Unit/Ml 3 Ml Vial) 0 unit SUBCUT QIDACHS [facility]; Protocol Last Admin: 12/18/21 08:24 Dose: 9 unit Documented By: ALISON Latanoprost (Latanoprost 0.005 % Ophth Mona 2.5 Ml Drops) 1 drop EYE-BOTH BEDTIME [facility] Last Admin: 12/17/21 20:46 Dose: 1 drop Documented By: CATHIE Levothyroxine Sodium (Levothyroxine Sodium 175 Mcg Tablet) 175 mcg PO DAILY@ 0600 [facility] Last Admin: 12/18/21 05:42 Dose: 175 mcg Documented By: CATHIE Metoprolol Succinate (Metoprolol Succinate Er 100 Mg Tab.Er.24h) 100 mg PO DAILY [facility]; Protocol Last Admin: 12/18/21 08:26 Dose: 100 mg Documented By: ALISON Naloxone HCl (Naloxone Hcl 0.4 Mg/Ml Vial) 0.2 mg IVPUSH Q2M PRN PRN Reason: Excessive sedation or RR < 8 Nystatin (Nystatin Powder 15 Gm Bottle) 1 appl TOPICAL BID [facility]; Protocol Last Admin: 12/18/21 08:27 Dose: 1 appl Documented By: ALISON Sitagliptin Phosphate (Sitagliptin Phosphate 100 Mg Tablet) 100 mg PO DAILY [facility] Last Admin: 12/18/21 08:25 Dose: 100 mg Documented By: ALISON Labs CBC & Chem 7: 12/17/21 06:24 12/17/21 06:24 Labs: Laboratory Results - last 24 hr 12/17/21 12/17/21 12/17/21 11:08 15:31 19:51 POC Glucose 157 H 223 H 162 H 12/18/21 07:13 POC Glucose 203 H Assessment and Plan (1) Toxic metabolic encephalopathy: Status: Acute (2) Urinary tract infection due to ESBL Klebsiella: Status: Acute (3) Hypernatremia: Status: Acute (4) Hypokalemia: Status: Acute Plan Year old female with past medical history of COPD on home oxygen, diabetes mellitus type 2, chronic kidney disease, congestive heart failure, hypertension, hyperlipidemia, hypothyroidism, PVD and recent COVID infection month ago presented to [facility] due to symptoms of shortness of breath and noted to have a finger oximetry of 68% on room air by EMS patient was brought to [facility] with sats of 79% on CPAP she was obtunded tachypneic and was em ergently intubated chest x-ray showed bilateral infiltrates congestion CTA chest showed no pulmonary embolism showed multifocal areas of consolidation abdominal CT showed retroperitoneal and mediastinal lymphadenopathy enlarged right inguinal node patient was admitted to intensive care unit, patient was treated with diuretics complicated by LEO and chronic kidney disease, antibiotics and was diagnosed to have Klebsiella pneumonia UTI, and Klebsiella in bronchial washings, due to diffuse abdominal lymphadenopathy she underwent groin lymph node aspiration and EUS aspiration of mediastinal lymph nodes, patient subsequently extubated on 12/06/2021 her renal function back to normal. currently on nasal cannula with stable oxygenation patient downgraded to [facility] on 12/09/2021 Toxic metabolic encephalopathy Multifactorial, prolonged ICU stay, infection , hypothyroidism Improved significantly Noticed that she did not receive levothyroxine for almost 3 weeks since ICU admission TSH of 8.8 Continue home dose levothyroxine Follow TSH as outpatient Hypernatremia resolved with fluids Sodium now 142 Encourage p.o. intake Hypokalemia replaced Acute on chronic diastolic heart failure resolved, continue maintenance lasix Acute on chronic kidney disease stage III Resolved likely secondary to CHF exacerbation and due to tubular injury creatinine normalized Acute on chronic hypoxic respiratory failure secondary to CHF exacerbation and Klebsiella pneumonia patient was recently discharged home after COVID infection on oxygen 3 L with activity, currently on 2 L of oxygen finger oximetry 97% will gradually wean oxygen as tolerated. UTI due to Klebsiella pneumoniae Finished Levaquin day 01/11 patient treated with Zosyn 4.5 g q.6 hours from 818-822 then received IV meropenem between 9 through 12 06 Levaquin was started on 12/04 500 mg and then 250 mg daily and then changed to 750 mg daily on 12/08 Lymphadenopathy status post aspiration findings are likely consistent with chronic lymphocytic leukemia/small lymphocytic lymphoma being followed by Dr. Ruiz Bilateral lung washings showed no malignancy To follow with Oncology as outpatient Uncontrolled hypertension Increase hydralazine to 50 mg t.i.d. Continue metoprolo and Amlodipinel Diabetes mellitus continue Lantus and insulin sliding scale, blood sugars stable Morbid obesity contributing to above medical issues low-calorie diet recommended Dysphagia followed by speech therapy on NDD 2 ground mechanical and nectar thick Need one-to-one animal assistant with meals Full code DVT prophylaxis heparin Patient need continued inpatient for treatment of electrolyte imbalance pending safe discharge plan. Quality Stroke Does the patient have a stroke diagnosis?: No VTE Prior VTE?: No VTE Risk Level:: Medical - moderate - high VTE Device Contraindication: Treatment Not Indicated VTE Drug Contraindication: N/A - Med Ordered
[2021-12-18 10:51] LABS: Glucose, Whole Blood 193 mg/dL (60-115)
--- NOTE | 2021-12-18 11:24 | MHC.CLN ---
F/U PO INTAKE VARIABLE RANGING FROM 25% TO 75% DIET RX: 2200DM GRD M/S -APPROPRIATE PT RECEIVING GLUCERNA SUPPLEMENTS BID TO INCREASE KCALS AND PROMOTE WOUND HEALING SUPP PROVIDES 474KCALS, 20G PROTEIN CONTINUE TO MONITOR PO INTAKE CLOSELY
[2021-12-18] MEDS: Butalb/Acetamin/Caff 50/325/40 TABLET 1 TAB PO (12:10)
--- NOTE | 2021-12-18 13:55 | MHC.CM.PN ---
per rounds pt ready for dc awaiting oon approval for pt to go to [facility]
--- NOTE | 2021-12-18 15:03 | MHC.SL.SWA ---
Addendum entered and electronically signed by Dory Gomez MA, CCC-ADULT EDUCATION MANAGER 12/18/21 18:26: D.S. Original Note: Speech Pathologist Impression: Oropharyngeal dysphagia Risk of Aspiration Due to: Medically Fragile History of Pneumonia Hx of Recent Extubation Dysphasia Diet Status: Continue with GROUND/MECHANICAL/ALTERED (NDD2) with THIN LIQUIDS by cup sip (NO STRAW). Pills whole in puree with close monitor that patient is not pocketing or orally holding pills. Liquid Consistency and Strategies for Safe Swallow: Liquid Intake Recommendation: Thin Liquid Intake Strategies: Small Sips No Straws Solid Food Consistency: Dietary Recommendations: Grnd/Mech Altered (NDD2) Additional Modifications to Solid Foods: Patient required 1-1 feed. Assure that patient has swallowed and is not pocketing food, before presenting additional food, alternate liquids and solids. Oral Medication Intake: Whole with Puree Please contact the pharmacy regarding appropriate crushable or liquid drug formulations that are available whenever modified delivery is recommended. Compensatory Strategies and Precautions to be Taken for Safe Swallow: Sitting Upright (90 deg) No Straw Liquids from Cup Small Bites and Sips Alternate Liquids/Solids Rate of Ingestion Change Oral Check Supervision While Eating and Drinking for Safe Swallow: Total Assistance (1:1) Foods to Avoid: Mixed consistencies: Blend sauces or gravies into ground food well. Swallowing Recommended Treatments: Compens. Strategy Educat. Recommendation for Speech: Inpatient Speech Therapy Pt was seen at bedside for dysphagia treatment this afternoon. Pt was sleeping, awoke with ease to verbal stimuli. Pt's lunch tray was present with ground chicken, ground carrot, and mashed potato. Pt refused several ground consistency foods offered including all foods on lunch tray, cracker dipped in pudding or applesauce, peaches. Pt accepted sips of grape juice and nutritional vanilla beverage on tray as well as bites of orange sherbert. Pt was obverved to produce good seal on cup, timely oral phase and timely swallow trigger. Double swallow was not observed today. No audible swallow. No clinical signs of aspiration. Recommend CONTINUE on Ground Mechanical Altered with THIN liquids by cup sip. Encourage patient to take independent small sips. NO STRAWS at this time. [place] Department Supervisor Clinican/Clinical Fellow: Yes: Yaritza Syed M.A., CF-ADULT EDUCATION MANAGER
[2021-12-18 16:21] LABS: Glucose, Whole Blood 104 mg/dL (60-115)
[2021-12-18 20:29] LABS: Glucose, Whole Blood 142 mg/dL (60-115)
[2021-12-18] MEDS: Atorvastatin Calcium 10 MG TABLET PO (20:55)
[2021-12-18] MEDS: Latanoprost 0.005 % Ophth Sol 2.5 ML DROPS 1 DROP EYE-BOTH (20:55)
[2021-12-19] MEDS: Heparin Sodium,Porcine 5,000 UNIT/ML VIAL 5000 UNIT SUBCUT ×4 (00:25→22:10)
[2021-12-19 03:30] VITALS: BP 162/65; PULSE 64; RESP 16; TEMP 36.3; O2SAT 100
[2021-12-19] MEDS: Butalb/Acetamin/Caff 50/325/40 TABLET 1 TAB PO ×2 (03:52→08:50)
[2021-12-19 06:00] VITALS: BMI 48.6
[2021-12-19] MEDS: Levothyroxine Sodium 175 MCG TABLET PO (06:37)
[2021-12-19 07:38] VITALS: BP 160/70; PULSE 68; RESP 18; TEMP 36.4; O2SAT 100
[2021-12-19 07:40] VITALS: O2SAT 100
[2021-12-19 07:45] LABS: Glucose, Whole Blood 172 mg/dL (60-115)
[2021-12-19] MEDS: Insulin Lispro 100 UNIT/ML 3 ML VIAL SUBCUT ×2 (08:30→22:01)
[2021-12-19] MEDS: Insulin Glargine,Hum.rec.anlog 100 UNIT/ML 10 ML VIAL 15 UNIT SUBCUT (08:30)
[2021-12-19] MEDS: hydrALAZINE HCl 50 MG TABLET PO ×3 (08:31→22:03)
[2021-12-19] MEDS: Metoprolol Succinate ER 100 MG TAB.ER.24H PO (08:31)
[2021-12-19] MEDS: Fluconazole 100 MG TABLET PO (08:31)
[2021-12-19] MEDS: Docusate Sodium 100 MG CAPSULE PO (08:31)
[2021-12-19] MEDS: Furosemide 40 MG TABLET PO (08:31)
[2021-12-19] MEDS: Escitalopram Oxalate 10 MG TABLET PO (08:31)
[2021-12-19] MEDS: amLODIPine Besylate 10 MG TABLET PO (08:32)
[2021-12-19] MEDS: Aspirin 325 MG TABLET PO (08:32)
[2021-12-19] MEDS: SITagliptin Phosphate 100 MG TABLET PO (08:32)
[2021-12-19] MEDS: Dorzolamide HCl 2 % Ophth Sol 10 ML DRPBTL 1 DROP EYE-RIGHT ×2 (08:40→22:24)
[2021-12-19] MEDS: Brimonidine Tartrate 0.2% Oph 5 ML BOTTLE 1 DROP EYE-RIGHT ×2 (08:40→22:26)
[2021-12-19] MEDS: Nystatin Powder 15 GM BOTTLE 1 APPL TOPICAL ×2 (08:48→22:06)
--- NOTE | 2021-12-19 09:17 | HO.PM.IMPN ---
Subjective Subjective Date of Service: 12/19/21 Interval History: cc: sob interval history:no complaints Respiratory Respiratory: Reports no additional respiratory complaints Gastrointestinal Gastrointestinal: Reports no additional gastrointestinal complaints Physical Exam Vital Signs: Vital Signs: Last Vital Signs Temp 97.6 F 12/19/21 07:38 Pulse 68 12/19/21 07:38 Resp 18 12/19/21 07:38 BP 160/70 H 12/19/21 07:38 Pulse Ox 100 12/19/21 07:40 O2 Del Method 12/19/21 07:40 O2 Flow Rate 1 12/19/21 07:38 FiO2 35 12/08/21 13:00 Oxygen Flow Rate 1 12/19/21 07:40 BMI result Body Mass Index 48.6 Const: Other: Constitutional : Alert, not in distress, morbidly obese Neck : Normal inspection, Supple Cardiovascular : RRR, no JVP, trace bilateral lower extremity edema Respiratory : fair bilateral air entry, no crackles, wheezes or rhonchi, on oxygen supplement Gastrointestinal: soft, lax, Normal bowel sounds, Non tender Skin : Warm, Dry, chronic venous discoloration lower extremities Neurological : Alert & orientedx3, No focal deficit Objective Data Active Medications Acetaminophen (Acetaminophen Oral Liquid 650 Mg/20.3 Ml Solution) 650 mg PO Q6H PRN PRN Reason: Fever >101 Last Admin: 12/15/21 13:50 Dose: 650 mg Documented By: LES Acetaminophen/Butalbital/Caffeine (Butalb/Acetamin/Caff 50/325/40 Tablet) 1 tab PO Q4H PRN PRN Reason: migraine Last Admin: 12/19/21 08:50 Dose: 1 tab Documented By: NIKI Amlodipine Besylate (Amlodipine Besylate 10 Mg Tablet) 10 mg PO DAILY [facility]; Protocol Last Admin: 12/19/21 08:32 Dose: 10 mg Documented By: NIKI Aspirin (Aspirin 325 Mg Tablet) 325 mg PO DAILY [facility] Last Admin: 12/19/21 08:32 Dose: 325 mg Documented By: NIKI Atorvastatin Calcium (Atorvastatin Calcium 10 Mg Tablet) 10 mg PO BEDTIME [facility] Last Admin: 12/18/21 20:55 Dose: 10 mg Documented By: MEME Brimonidine Tartrate (Brimonidine Tartrate 0.2% Oph 5 Ml Bottle) 1 drop EYE-RIGHT BID [facility] Last Admin: 12/19/21 08:40 Dose: 1 drop Documented By: NIKI Dextrose (Dextrose 50 % 25 Gm/50 Ml Syringe) 25 gm IVPUSH Q15M PRN; Protocol PRN Reason: per Hypoglycemia Standing Ord. Last Admin: 12/01/21 19:53 Dose: 25 gm Documented By: PEPITO Docusate Sodium (Docusate Sodium 100 Mg Capsule) 100 mg PO DAILY [facility] Last Admin: 12/19/21 08:31 Dose: 100 mg Documented By: NIKI Dorzolamide HCl (Dorzolamide Hcl 2 % Ophth Mona 10 Ml Drpbtl) 1 drop EYE-RIGHT BID [facility] Last Admin: 12/19/21 08:40 Dose: 1 drop Documented By: NIKI Escitalopram Oxalate (Escitalopram Oxalate 10 Mg Tablet) 10 mg PO DAILY [facility] Last Admin: 12/19/21 08:31 Dose: 10 mg Documented By: NIKI Furosemide (Furosemide 40 Mg Tablet) 40 mg PO DAILY [facility]; Protocol Last Admin: 12/19/21 08:31 Dose: 40 mg Documented By: NIKI Heparin Sodium (Porcine) (Heparin Sodium,Porcine 5,000 Unit/Ml Vial) 5,000 unit SUBCUT Q8H [facility] Last Admin: 12/19/21 06:37 Dose: 5,000 unit Documented By: MEME Hydralazine HCl (Hydralazine Hcl 50 Mg Tablet) 50 mg PO TID [facility]; Protocol Last Admin: 12/19/21 08:31 Dose: 50 mg Documented By: NIKI Insulin Glargine (Insulin Glargine,Hum.Rec.Anlog 100 Unit/Ml 10 Ml Vial) 15 unit SUBCUT DAILY [facility] Last Admin: 12/19/21 08:30 Dose: 15 unit Documented By: NIKI Insulin Human Lispro (Insulin Lispro 100 Unit/Ml 3 Ml Vial) 0 unit SUBCUT QIDACHS [facility]; Protocol Last Admin: 12/19/21 08:30 Dose: 5 unit Documented By: NIKI Latanoprost (Latanoprost 0.005 % Ophth Mona 2.5 Ml Drops) 1 drop EYE-BOTH BEDTIME [facility] Last Admin: 12/18/21 20:55 Dose: 1 drop Documented By: MEME Levothyroxine Sodium (Levothyroxine Sodium 175 Mcg Tablet) 175 mcg PO DAILY@0600 [facility] Last Admin: 12/19/21 06:37 Dose: 175 mcg Documented By: MEME Metoprolol Succinate (Metoprolol Succinate Er 100 Mg Tab.Er.24h) 100 mg PO DAILY [facility]; Protocol Last Admin: 12/19/21 08:31 Dose: 100 mg Documented By: NIKI Naloxone HCl (Naloxone Hcl 0.4 Mg/Ml Vial) 0.2 mg IVPUSH Q2M PRN PRN Reason: Excessive sedation or RR < 8 Nystatin (Nystatin Powder 15 Gm Bottle) 1 appl TOPICAL BID [facility]; Protocol Last Admin: 12/19/21 08:48 Dose: 1 appl Documented By: NIKI Sitagliptin Phosphate (Sitagliptin Phosphate 100 Mg Tablet) 100 mg PO DAILY [facility] Last Admin: 12/19/21 08:32 Dose: 100 mg Documented By: NIKI Labs CBC & Chem 7: 12/17/21 06:24 12/17/21 06:24 Labs: Laboratory Results - last 24 hr 12/18/21 12/18/21 12/18/21 10:47 16:17 20:25 POC Glucose 193 H 104 142 H 12/19/21 07:36 POC Glucose 172 H Assessment and Plan (1) Toxic metabolic encephalopathy: Status: Acute (2) Urinary tract infection due to ESBL Klebsiella: Status: Acute (3) Hypernatremia: Status: Acute (4) Hypokalemia: Status: Acute Plan Year old female with past medical history of COPD on home oxygen, diabetes mellitus type 2, chronic kidney disease, congestive heart failure, hypertension, hyperlipidemia, hypothyroidism, PVD and recent COVID infection month ago presented to [facility] due to symptoms of shortness of breath and noted to have a finger oximetry of 68% on room air by EMS patient was brought to [facility] with sats of 79% on CPAP she was obtunded tachypneic and was emergently intubated chest x-ray showed bilateral infiltrates congestion CTA chest showed no pulmonary embolism showed multifocal areas of consolidation abdominal CT showed retroperitoneal and mediastinal lymphadenopathy enlarged right inguinal node patient was admitted to intensive care unit, patient was treated with diuretics complicated by LEO and chronic kidney disease, antibiotics and was diagnosed to have Klebsiella pneumonia UTI, and Klebsiella in bronchial washings, due to diffuse abdominal lymphadenopathy she underwent groin lymph node aspiration and EUS aspiration of mediastinal lymph nodes, patient subsequently extubated on 12/06/2021 her renal function back to normal. currently on nasal cannula with stable oxygenation patient downgraded to [facility] on 12/09/2021 Toxic metabolic encephalopathy Multifactorial, prolonged ICU stay, infection , hypothyroidism Improved significantly Noticed that she did not receive levothyroxine for almost 3 weeks since ICU admission TSH of 8.8 Continue home dose levothyroxine Follow TSH as outpatient Hypernatremia resolved with fluids Encourage p.o. intake Hypokalemia replaced Acute on chronic diastolic heart failure resolved, continue maintenance lasix Acute on chronic kidney disease stage III Resolved likely secondary to CHF exacerbation and due to tubular injury creatinine normalized Acute on chronic hypoxic respiratory failure secondary to CHF exacerbation and Klebsiella pneumonia patient was recently discharged home after COVID infection on oxygen 3 L with activity, currently on 2 L of oxygen finger oximetry 97% will gradually wean oxygen as tolerated. UTI due to Klebsiella pneumoniae Finished Levaquin day 01/11 patient treated with Zosyn 4.5 g q.6 hours from [id number] then received IV meropenem between 12 03 through 12 06 Levaquin was started on 12/04 500 mg and then 250 mg daily and then changed to 750 mg daily on 12/08 Lymphadenopathy status post aspiration findings are likely consistent with chronic lymphocytic leukemia/small lymphocytic lymphoma being followed by Dr. Ruiz Bilateral lung washings showed no malignancy To follow with Oncology as outpatient Uncontrolled hypertension Increase hydralazine to 50 mg t.i.d. Continue metoprolo and Amlodipinel Diabetes mellitus continue Lantus and insulin sliding scale, blood sugars stable Morbid obesity contributing to above medical issues low-calorie diet recommended Dysphagia followed by speech therapy on NDD 2 ground mechanical and nectar thick Need one-to-one assistant teacher primary with meals Full code DVT prophylaxis heparin Patient need continued inpatient for treatment of electrolyte imbalance pending safe discharge plan. Quality Stroke Does the patient have a stroke diagnosis?: No VTE Prior VTE?: No VTE Risk Level:: Medical - moderate - high VTE Device Contraindication: Treatment Not Indicated VTE Drug Contraindication: N/A - Med Ordered
[2021-12-19 11:02] VITALS: BP 129/60; PULSE 58; RESP 18; TEMP 36.7; O2SAT 99
[2021-12-19 11:42] LABS: Glucose, Whole Blood 148 mg/dL (60-115)
[2021-12-19 15:16] VITALS: BP 154/67; PULSE 80; RESP 18; TEMP 36.8; O2SAT 98
[2021-12-19 16:12] LABS: Glucose, Whole Blood 149 mg/dL (60-115)
[2021-12-19 19:13] VITALS: BP 149/65; PULSE 62; RESP 18; TEMP 36.7; O2SAT 99
[2021-12-19 19:35] LABS: Glucose, Whole Blood 183 mg/dL (60-115)
[2021-12-19] MEDS: Atorvastatin Calcium 10 MG TABLET PO (22:03)
[2021-12-19] MEDS: Latanoprost 0.005 % Ophth Sol 2.5 ML DROPS 1 DROP EYE-BOTH (22:05)
[2021-12-20] VITALS (8 sets, daily range): BP systolic 146–163; BP diastolic 64–72; PULSE 53–80; RESP 16–20; TEMP 36.2–37.1; O2SAT 97–100; BMI 48.4
[2021-12-20] MEDS: Acetaminophen Oral Liquid 650 MG/20.3 ML SOLUTION PO (00:11)
[2021-12-20] MEDS: Butalb/Acetamin/Caff 50/325/40 TABLET 1 TAB PO ×2 (05:33→11:57)
[2021-12-20] MEDS: Levothyroxine Sodium 175 MCG TABLET PO (05:38)
[2021-12-20 07:20] LABS: Hematocrit 36.2 % (37.0-47.0); Hemoglobin 11.1 g/dl (12.0-16.0); Mean Corpuscular HGB Conc 30.7 g/dl (31.0-35.0); Mean Corpuscular Hemoglobin 25.9 pg (27.0-33.0); Mean Corpuscular Volume 84.4 fL (80.0-98.0); PLT CLUMP 1; Red Blood Count 4.29 X10*6/uL (4.20-5.50); Red Cell Distribution Width 17.2 % (11.0-16.0)
[2021-12-20 07:45] LABS: Anion Gap 16 (12-20); Blood Urea Nitrogen 16 mg/dL (9-16); Calcium 8.4 mg/dL (8.4-10.2); Carbon Dioxide 28 mmol/L (22-29); Chloride 100 mmol/L (96-108); Creatinine Clr Calc Pharmacy 98.4; Estimated Glomerular Filt Rate > 60; Glucose Fasting 179 mg/dL (60-99); Potassium 3.9 mmol/L (3.3-5.1); Sodium 140 mmol/L (135-145)
[2021-12-20 07:47] LABS: Glucose, Whole Blood 169 mg/dL (60-115)
[2021-12-20 08:14] LABS: Platelet Count 140 X10*3/uL (160-400); White Blood Count 11.4 X10*3/uL (4.8-10.8)
[2021-12-20] MEDS: Heparin Sodium,Porcine 5,000 UNIT/ML VIAL 5000 UNIT SUBCUT (08:17)
[2021-12-20] MEDS: Insulin Glargine,Hum.rec.anlog 100 UNIT/ML 10 ML VIAL 15 UNIT SUBCUT (08:17)
[2021-12-20] MEDS: Insulin Lispro 100 UNIT/ML 3 ML VIAL SUBCUT ×2 (08:18→11:55)
[2021-12-20] MEDS: Aspirin 325 MG TABLET PO (08:18)
[2021-12-20] MEDS: Docusate Sodium 100 MG CAPSULE PO (08:18)
[2021-12-20] MEDS: Escitalopram Oxalate 10 MG TABLET PO (08:18)
[2021-12-20] MEDS: Nystatin Powder 15 GM BOTTLE 1 APPL TOPICAL ×2 (08:19→19:49)
[2021-12-20] MEDS: Furosemide 40 MG TABLET PO (08:19)
[2021-12-20] MEDS: amLODIPine Besylate 10 MG TABLET PO (08:19)
[2021-12-20] MEDS: hydrALAZINE HCl 50 MG TABLET PO ×3 (08:19→19:48)
[2021-12-20] MEDS: SITagliptin Phosphate 100 MG TABLET PO (08:19)
[2021-12-20] MEDS: Metoprolol Succinate ER 100 MG TAB.ER.24H PO (08:20)
--- NOTE | 2021-12-20 10:30 | HO.PM.IMPN ---
Subjective Subjective Date of Service: 12/20/21 Interval History: cc: sob interval history:no complaints Respiratory Respiratory: Reports no additional respiratory complaints Gastrointestinal Gastrointestinal: Reports no additional gastrointestinal complaints Physical Exam Vital Signs: Vital Signs: Last Vital Signs Temp 97.8 F 12/20/21 07:12 Pulse 62 12/20/21 07:12 Resp 18 12/20/21 07:12 BP 156/69 H 12/20/21 07:12 Pulse Ox 97 12/20/21 07:12 O2 Del Method 12/20/21 07:12 O2 Flow Rate 1 12/20/21 07:12 FiO2 35 12/08/21 13:00 Oxygen Flow Rate 1 12/20/21 07:00 BMI result Body Mass Index 48.4 Const: Other: Constitutional : Alert, not in distress, morbidly obese Neck : Normal inspection, Supple Cardiovascular : RRR, no JVP, trace bilateral lower extremity edema Respiratory : fair bilateral air entry, no crackles, wheezes or rhonchi, on oxygen supplement Gastrointestinal: soft, lax, Normal bowel sounds, Non tender Skin : Warm, Dry, chronic venous discoloration lower extremities Neurological : Alert & orientedx3, No focal deficit Objective Data Active Medications Acetaminophen (Acetaminophen Oral Liquid 650 Mg/20.3 Ml Solution) 650 mg PO Q6H PRN PRN Reason: Fever >101 Last Admin: 12/20/21 00:11 Dose: 650 mg Documented By: BOBBY Acetaminophen/Butalbital/Caffeine (Butalb/Acetamin/Caff 50/325/40 Tablet) 1 tab PO Q4H PRN PRN Reason: migraine Last Admin: 12/20/21 05:33 Dose: 1 tab Documented By: BOBBY Amlodipine Besylate (Amlodipine Besylate 10 Mg Tablet) 10 mg PO DAILY [facility]; Protocol Last Admin: 12/20/21 08:19 Dose: 10 mg Documented By: RAYNA Aspirin (Aspirin 325 Mg Tablet) 325 mg PO DAILY [facility] Last Admin: 12/20/21 08:18 Dose: 325 mg Documented By: RAYNA Atorvastatin Calcium (Atorvastatin Calcium 10 Mg Tablet) 10 mg PO BEDTIME [facility] Last Admin: 12/19/21 22:03 Dose: 10 mg Documented By: AKIL Brimonidine Tartrate (Brimonidine Tartrate 0.2% Oph 5 Ml Bottle) 1 drop EYE-RIGHT BID [facility] Last Admin: 12/19/21 22:26 Dose: 1 drop Documented By: AKIL Dextrose (Dextrose 50 % 25 Gm/50 Ml Syringe) 25 gm IVPUSH Q15M PRN; Protocol PRN Reason: per Hypoglycemia Standing Ord. Last Admin: 12/01/21 19:53 Dose: 25 gm Documented By: PEPITO Docusate Sodium (Docusate Sodium 100 Mg Capsule) 100 mg PO DAILY [facility] Last Admin: 12/20/21 08:18 Dose: 100 mg Documented By: RAYNA Dorzolamide HCl (Dorzolamide Hcl 2 % Ophth Mona 10 Ml Drpbtl) 1 drop EYE-RIGHT BID [facility] Last Admin: 12/19/21 22:24 Dose: 1 drop Documented By: AKIL Escitalopram Oxalate (Escitalopram Oxalate 10 Mg Tablet) 10 mg PO DAILY [facility] Last Admin: 12/20/21 08:18 Dose: 10 mg Documented By: RAYNA Furosemide (Furosemide 40 Mg Tablet) 40 mg PO DAILY [facility]; Protocol Last Admin: 12/20/21 08:19 Dose: 40 mg Documented By: RAYNA Heparin Sodium (Porcine) (Heparin Sodium,Porcine 5,000 Unit/Ml Vial) 5,000 unit SUBCUT Q8H [facility] Last Admin: 12/20/21 08:17 Dose: 5,000 unit Documented By: RAYNA Hydralazine HCl (Hydralazine Hcl 50 Mg Tablet) 50 mg PO TID [facility]; Protocol Last Admin: 12/20/21 08:19 Dose: 50 mg Documented By: RAYNA Insulin Glargine (Insulin Glargine,Hum.Rec.Anlog 100 Unit/Ml 10 Ml Vial) 15 unit SUBCUT DAILY [facility] Last Admin: 12/20/21 08:17 Dose: 15 unit Documented By: RAYNA Insulin Human Lispro (Insulin Lispro 100 Unit/Ml 3 Ml Vial) 0 unit SUBCUT QIDACHS [facility]; Protocol Last Admin: 12/20/21 08:18 Dose: 5 unit Documented By: RAYNA Latanoprost (Latanoprost 0.005 % Ophth Mona 2.5 Ml Drops) 1 drop EYE-BOTH BEDTIME [facility] Last Admin: 12/19/21 22:05 Dose: 1 drop Documented By: AKIL Levothyroxine Sodium (Levothyroxine Sodium 175 Mcg Tablet) 175 mcg PO DAILY@0600 [facility] Last Admin: 12/20/21 05:38 Dose: 175 mcg Documented By: BOBBY Metoprolol Succinate (Metoprolol Succinate Er 100 Mg Tab.Er.24h) 100 mg PO DAILY [facility]; Protocol Last Admin: 12/20/21 08:20 Dose: 100 mg Documented By: RAYNA Naloxone HCl (Naloxone Hcl 0.4 Mg/Ml Vial) 0.2 mg IVPUSH Q2M PRN PRN Reason: Excessive sedation or RR < 8 Nystatin (Nystatin Powder 15 Gm Bottle) 1 appl TOPICAL BID [facility]; Protocol Last Admin: 12/20/21 08:19 Dose: 1 appl Documented By: RAYNA Sitagliptin Phosphate (Sitagliptin Phosphate 100 Mg Tablet) 100 mg PO DAILY [facility] Last Admin: 12/20/21 08:19 Dose: 100 mg Documented By: RAYNA Labs CBC & Chem 7: 12/20/21 07:04 12/20/21 07:04 Labs: Laboratory Results - last 24 hr 12/19/21 12/19/21 12/19/21 11:06 16:09 19:30 MCV MCH MCHC RDW Plt Count MPV Absolute Nucleated RBC Nucleated RBC % (auto) Anion Gap Estim Creat Clear Calc Estimated GFR POC Glucose 148 H 149 H 183 H Fasting Glucose Calcium 12/20/21 12/20/21 12/20/21 07:04 07:04 07:15 MCV 84.4 MCH 25.9 L MCHC 30.7 L RDW 17.2 H Plt Count 140 L MPV Not Reportable Absolute Nucleated RBC 0.000 Nucleated RBC % (auto) 0.0 Anion Gap 16 Estim Creat Clear Calc 98.4 Estimated GFR > 60 POC Glucose 169 H Fasting Glucose 179 H Calcium 8.4 Assessment and Plan (1) Toxic metabolic encephalopathy: Status: Acute (2) Urinary tract infection due to ESBL Klebsiella: Status: Acute (3) Hypernatremia: Status: Acute (4) Hypokalemia: Status: Acute Plan Year old female with past medical history of COPD on home oxygen, diabetes mellitus type 2, chronic kidney disease, congestive heart failure, hypertension, hyperlipidemia, hypothyroidism, PVD and recent COVID infection month ago presented to [facility] due to symptoms of shortness of breath and noted to have a finger oximetry of 68% on room air by EMS patient was brought to [facility] with sats of 79% on CPAP she was obtunded tachypneic and was emergently intubated chest x-ray showed bilateral infiltrates congestion CTA chest showed no pulmonary embolism showed multifocal areas of consolidation abdominal CT showed retroperitoneal and mediastinal lymphadenopathy enlarged right inguinal node patient was admitted to intensive care unit, patient was treated with diuretics complicated by LEO and chronic kidney disease, antibiotics and was diagnosed to have Klebsiella pneumonia UTI, and Klebsiella in bronchial washings, due to diffuse abdominal lymphadenopathy she underwent groin lymph node aspiration and EUS aspiration of mediastinal lymph nodes, patient subsequently extubated on 12/06/2021 her renal function back to normal. currently on nasal cannula with stable oxygenation patient downgraded to [facility] on 12/09/2021 Toxic metabolic encephalopathy Multifactorial, prolonged ICU stay, infection , hypothyroidism Improved significantly Noticed that she did not receive levothyroxine for almost 3 weeks since ICU admission TSH of 8.8 Continue home dose levothyroxine Follow TSH as outpatient Hypernatremia resolved with fluids Encourage p.o. intake Hypokalemia replaced Acute on chronic diastolic heart failure resolved, continue maintenance lasix Acute on chronic kidney disease stage III Resolved likely secondary to CHF exacerbation and due to tubular injury creatinine normalized Acute on chronic hypoxic respiratory failure secondary to CHF exacerbation and Klebsiella pneumonia patient was recently discharged home after COVID infection on oxygen 3 L with activity, currently on 2 L of oxygen finger oximetry 97% will gradually wean oxygen as tolerated. UTI due to Klebsiella pneumoniae Finished Levaquin day 01/11 patient treated with Zosyn 4.5 g q.6 hours from [id number] then received IV meropenem between 12 03 through 12 06 Levaquin was started on 12/04 500 mg and then 250 mg daily and then changed to 750 mg daily on 12/08 Lymphadenopathy status post aspiration findings are likely consistent with chronic lymphocytic leukemia/small lymphocytic lymphoma being followed by Dr. Ruiz Bilateral lung washings showed no malignancy To follow with Oncology as outpatient Uncontrolled hypertension Increase hydralazine to 50 mg t.i.d. 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
[2021-12-20] MEDS: Brimonidine Tartrate 0.2% Oph 5 ML BOTTLE 1 DROP EYE-RIGHT ×2 (10:35→19:53)
[2021-12-20] MEDS: Dorzolamide HCl 2 % Ophth Sol 10 ML DRPBTL 1 DROP EYE-RIGHT ×2 (10:37→19:54)
[2021-12-20 11:25] LABS: Glucose, Whole Blood 193 mg/dL (60-115)
[2021-12-20 16:34] LABS: Glucose, Whole Blood 126 mg/dL (60-115)
[2021-12-20] MEDS: Enoxaparin Sodium 40 MG/0.4 ML SYRINGE SUBCUT (16:50)
[2021-12-20 19:40] LABS: Glucose, Whole Blood 122 mg/dL (60-115)
[2021-12-20] MEDS: Atorvastatin Calcium 10 MG TABLET PO (19:48)
[2021-12-20] MEDS: Latanoprost 0.005 % Ophth Sol 2.5 ML DROPS 1 DROP EYE-BOTH (19:54)
[2021-12-21] VITALS (7 sets, daily range): BP systolic 129–163; BP diastolic 60–70; PULSE 55–80; RESP 16–18; TEMP 35.6–36.7; O2SAT 97–100; BMI 48.6
[2021-12-21] MEDS: Levothyroxine Sodium 175 MCG TABLET PO (05:17)
[2021-12-21 07:23] LABS: Glucose, Whole Blood 150 mg/dL (60-115)
[2021-12-21] MEDS: Insulin Glargine,Hum.rec.anlog 100 UNIT/ML 10 ML VIAL 15 UNIT SUBCUT (08:38)
[2021-12-21] MEDS: Acetaminophen Oral Liquid 650 MG/20.3 ML SOLUTION PO (08:39)
[2021-12-21] MEDS: hydrALAZINE HCl 50 MG TABLET PO ×3 (08:39→20:25)
[2021-12-21] MEDS: Aspirin 325 MG TABLET PO (08:39)
[2021-12-21] MEDS: SITagliptin Phosphate 100 MG TABLET PO (08:39)
[2021-12-21] MEDS: Escitalopram Oxalate 10 MG TABLET PO (08:39)
[2021-12-21] MEDS: Metoprolol Succinate ER 100 MG TAB.ER.24H PO (08:40)
[2021-12-21] MEDS: Furosemide 40 MG TABLET PO (08:40)
[2021-12-21] MEDS: Docusate Sodium 100 MG CAPSULE PO (08:40)
[2021-12-21] MEDS: amLODIPine Besylate 10 MG TABLET PO (08:40)
[2021-12-21] MEDS: Dorzolamide HCl 2 % Ophth Sol 10 ML DRPBTL 1 DROP EYE-RIGHT ×2 (08:41→20:27)
[2021-12-21] MEDS: Nystatin Powder 15 GM BOTTLE 1 APPL TOPICAL ×2 (08:42→20:26)
[2021-12-21] MEDS: Brimonidine Tartrate 0.2% Oph 5 ML BOTTLE 1 DROP EYE-RIGHT ×2 (08:42→20:27)
--- NOTE | 2021-12-21 09:49 | HO.PM.IMPN ---
Subjective Subjective Date of Service: 12/21/21 Interval History: cc: sob interval history:no complaints Respiratory Respiratory: Reports no additional respiratory complaints Gastrointestinal Gastrointestinal: Reports no additional gastrointestinal complaints Physical Exam Vital Signs: Vital Signs: Last Vital Signs Temp 97.7 F 12/21/21 08:00 Pulse 63 12/21/21 08:00 Resp 16 12/21/21 08:00 BP 144/63 H 12/21/21 08:00 Pulse Ox 100 12/21/21 08:00 O2 Del Method 12/21/21 08:00 O2 Flow Rate 1 12/21/21 08:00 FiO2 35 12/08/21 13:00 Oxygen Flow Rate 1 12/20/21 07:00 BMI result Body Mass Index 48.6 Const: Other: Constitutional : Alert, not in distress, morbidly obese Neck : Normal inspection, Supple Cardiovascular : RRR, no JVP, trace bilateral lower extremity edema Respiratory : fair bilateral air entry, no crackles, wheezes or rhonchi, on oxygen supplement Gastrointestinal: soft, lax, Normal bowel sounds, Non tender Skin : Warm, Dry, chronic venous discoloration lower extremities Neurological : Alert & orientedx3, No focal deficit Objective Data Active Medications Acetaminophen (Acetaminophen Oral Liquid 650 Mg/20.3 Ml Solution) 650 mg PO Q6H PRN PRN Reason: Fever >101 Last Admin: 12/21/21 08:39 Dose: 650 mg Documented By: MALLORIE Acetaminophen/Butalbital/Caffeine (Butalb/Acetamin/Caff 50/325/40 Tablet) 1 tab PO Q4H PRN PRN Reason: migraine Last Admin: 12/20/21 11:57 Dose: 1 tab Documented By: RAYNA Amlodipine Besylate (Amlodipine Besylate 10 Mg Tablet) 10 mg PO DAILY [facility]; Protocol Last Admin: 12/21/21 08:40 Dose: 10 mg Documented By: MALLORIE Aspirin (Aspirin 325 Mg Tablet) 325 mg PO DAILY [facility] Last Admin: 12/21/21 08:39 Dose: 325 mg Documented By: MALLORIE Atorvastatin Calcium (Atorvastatin Calcium 10 Mg Tablet) 10 mg PO BEDTIME [facility] Last Admin: 12/20/21 19:48 Dose: 10 mg Documented By: DANA Brimonidine Tartrate (Brimonidine Tartrate 0.2% Oph 5 Ml Bottle) 1 drop EYE-RIGHT BID [facility] Last Admin: 12/21/21 08:42 Dose: 1 drop Documented By: MALLORIE Dextrose (Dextrose 50 % 25 Gm/50 Ml Syringe) 25 gm IVPUSH Q15M PRN; Protocol PRN Reason: per Hypoglycemia Standing Ord. Last Admin: 12/01/21 19:53 Dose: 25 gm Documented By: PEPITO Docusate Sodium (Docusate Sodium 100 Mg Capsule) 100 mg PO DAILY [facility] Last Admin: 12/21/21 08:40 Dose: 100 mg Documented By: MALLORIE Dorzolamide HCl (Dorzolamide Hcl 2 % Ophth Mona 10 Ml Drpbtl) 1 drop EYE-RIGHT BID [facility] Last Admin: 12/21/21 08:41 Dose: 1 drop Documented By: MALLORIE Enoxaparin Sodium (Enoxaparin Sodium 40 Mg/0.4 Ml Syringe) 40 mg SUBCUT Q24H [facility] Last Admin: 12/20/21 16:50 Dose: 40 mg Documented By: RAYNA Escitalopram Oxalate (Escitalopram Oxalate 10 Mg Tablet) 10 mg PO DAILY [facility] Last Admin: 12/21/21 08:39 Dose: 10 mg Documented By: MALLORIE Furosemide (Furosemide 40 Mg Tablet) 40 mg PO DAILY [facility]; Protocol Last Admin: 12/21/21 08:40 Dose: 40 mg Documented By: MALLORIE Hydralazine HCl (Hydralazine Hcl 50 Mg Tablet) 50 mg PO TID [facility]; Protocol Last Admin: 12/21/21 08:39 Dose: 50 mg Documented By: MALLORIE Insulin Glargine (Insulin Glargine,Hum.Rec.Anlog 100 Unit/Ml 10 Ml Vial) 15 unit SUBCUT DAILY [facility] Last Admin: 12/21/21 08:38 Dose: 15 unit Documented By: MALLORIE Insulin Human Lispro (Insulin Lispro 100 Unit/Ml 3 Ml Vial) 0 unit SUBCUT QIDACHS [facility]; Protocol Last Admin: 12/21/21 07:30 Dose: Not Given Documented By: MALLORIE Non-Admin Reason: No Insulin Coverage Latanoprost (Latanoprost 0.005 % Ophth Mona 2.5 Ml Drops) 1 drop EYE-BOTH BEDTIME [facility] Last Admin: 12/20/21 19:54 Dose: 1 drop Documented By: DANA Levothyroxine Sodium (Levothyroxine Sodium 175 Mcg Tablet) 175 mcg PO DAILY@0600 [facility] Last Admin: 12/21/21 05:17 Dose: 175 mcg Documented By: DANA Metoprolol Succinate (Metoprolol Succinate Er 100 Mg Tab.Er.24h) 100 mg PO DAILY [facility]; Protocol Last Admin: 12/21/21 08:40 Dose: 100 mg Documented By: MALLORIE Naloxone HCl (Naloxone Hcl 0.4 Mg/Ml Vial) 0.2 mg IVPUSH Q2M PRN PRN Reason: Excessive sedation or RR < 8 Nystatin (Nystatin Powder 15 Gm Bottle) 1 appl TOPICAL BID [facility]; Protocol Last Admin: 12/21/21 08:42 Dose: 1 appl Documented By: MALLORIE Sitagliptin Phosphate (Sitagliptin Phosphate 100 Mg Tablet) 100 mg PO DAILY [facility] Last Admin: 12/21/21 08:39 Dose: 100 mg Documented By: MALLORIE Labs CBC & Chem 7: 12/20/21 07:04 12/20/21 07:04 Labs: Laboratory Results - last 24 hr 12/20/21 12/20/21 12/20/21 11:21 16:16 19:34 POC Glucose 193 H 126 H 122 H 12/21/21 07:13 POC Glucose 150 H Microbiology Microbiology Results: Microbiology 11/25/21 09:30 Fungal Identification - Preliminary Pleural Fluid No growth after 3 weeks. Assessment and Plan (1) Toxic metabolic encephalopathy: Status: Acute (2) Urinary tract infection due to ESBL Klebsiella: Status: Acute (3) Hypernatremia: Status: Acute (4) Hypokalemia: Status: Acute Plan Year old female with past medical history of COPD on home oxygen, diabetes mellitus type 2, chronic kidney disease, congestive heart failure, hypertension, hyperlipidemia, hypothyroidism, PVD and recent COVID infection month ago presented to [facility] due to symptoms of shortness of breath and noted to have a finger oximetry of 68% on room air by EMS patient was brought to [facility] with sats of 79% on CPAP she was obtunded tachypneic and was emergently intubated chest x-ray showed bilateral infiltrates congestion CTA chest showed no pulmonary embolism showed multifocal areas of consolidation abdominal CT showed retroperitoneal and mediastinal lymphadenopathy enlarged right inguinal node patient was admitted to intensive care unit, patient was treated with diuretics complicated by LEO and chronic kidney disease, antibiotics and was diagnosed to have Klebsiella pneumonia UTI, and Klebsiella in bronchial washings, due to diffuse abdominal lymphadenopathy she underwent groin lymph node aspiration and EUS aspiration of mediastinal lymph nodes, patient subsequently extubated on 12/06/2021 her renal function back to normal. currently on nasal cannula with stable oxygenation [place] [facility] [place] Toxic metabolic encephalopathy Multifactorial, prolonged ICU stay, infection , hypothyroidism Improved significantly Noticed that she did not receive levothyroxine for almost 3 weeks since ICU admission TSH of 8.8 Continue home dose levothyroxine Follow TSH as outpatient Hypernatremia resolved with fluids Encourage p.o. intake Hypokalemia replaced Acute on chronic diastolic heart failure resolved, continue maintenance lasix Acute on chronic kidney disease stage III Resolved likely secondary to CHF exacerbation and due to tubular injury creatinine normalized Acute on chronic hypoxic respiratory failure secondary to CHF exacerbation and Klebsiella pneumonia patient was recently discharged home after COVID infection on oxygen 3 L with activity, currently on 2 L of oxygen finger oximetry 97% will gradually wean oxygen as tolerated. UTI due to Klebsiella pneumoniae Finished Levaquin day 01/11 patient treated with Zosyn 4.5 g q.6 hours from [id number] then received IV meropenem between 12 03 through 12 06 Levaquin was started on 12/04 500 mg and then 250 mg daily and then changed to 750 mg daily on 12/08 Lymphadenopathy status post aspiration findings are likely consistent with chronic lymphocytic leukemia/small lymphocytic lymphoma being followed by Dr. Ruiz Bilateral lung washings showed no malignancy To follow with Oncology as outpatient Uncontrolled hypertension Increase hydralazine to 50 mg t.i.d. 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
[2021-12-21 11:15] LABS: Glucose, Whole Blood 235 mg/dL (60-115)
[2021-12-21] MEDS: Insulin Lispro 100 UNIT/ML 3 ML VIAL SUBCUT ×2 (11:27→16:41)
--- NOTE | 2021-12-21 12:56 | MHC.CLN ---
F/U PO INTAKE VARIABLE RANGING FROM 25% TO 50% DIET RX: 2200DM GRD M/S -APPROPRIATE PT RECEIVING GLUCERNA SUPPLEMENTS BID TO INCREASE KCALS AND PROMOTE WOUND HEALING SUPP PROVIDES 474KCALS, 20G PROTEIN WILL ADD MAGIC CUP TO INCREASE KCALS TO PROVIDE 580KCALS, 18G PROTEIN CONTINUE TO MONITOR PO INTAKE CLOSELY
--- NOTE | 2021-12-21 13:10 | MHC.CM.PN ---
CM has updated [facility], who are actively pursuing an OON agreement with Patient's [facility] insurance. Patient is medically cleared for dc and CM will continue to follow.
--- NOTE | 2021-12-21 14:04 | MHC.SLORD ---
Speech Language Pathology Order Status: Attempted to see pt for dysphagia treatment this afternoon. Pt refused all offers of food and liquids despite encouragement to participate. SOCIAL ECONOMIST discussed with RN. RN reports same observation with refusal of food, pt taking few sips of liquids. SOCIAL ECONOMIST discussed w/ pt. Pt is edentulous, states she does not have her dentures here with her. Pt reports she tends to have softer foods without her teeth and is agreeable to being on a softer diet for ease of mastication and to reduce risk of choking. Pt appears to be on safest, least restrictive diet given oral phase dysphagia and edentulous state. Recommend continue on ground/mech altered (NDD2) diet with thin liquids. Further ST intervention no longer warranted at this level of care. Please re-refer with any changes or further concern.
[2021-12-21] MEDS: Butalb/Acetamin/Caff 50/325/40 TABLET 1 TAB PO ×2 (16:05→20:25)
[2021-12-21 16:11] LABS: Glucose, Whole Blood 170 mg/dL (60-115)
[2021-12-21] MEDS: Enoxaparin Sodium 40 MG/0.4 ML SYRINGE SUBCUT (17:54)
[2021-12-21 19:54] LABS: Glucose, Whole Blood 106 mg/dL (60-115)
[2021-12-21] MEDS: Atorvastatin Calcium 10 MG TABLET PO (20:25)
[2021-12-21] MEDS: Latanoprost 0.005 % Ophth Sol 2.5 ML DROPS 1 DROP EYE-BOTH (20:28)
[2021-12-22] MEDS: Levothyroxine Sodium 175 MCG TABLET PO (05:49)
[2021-12-22 05:52] VITALS: BMI 47.9
[2021-12-22 07:30] VITALS: BP 159/75; PULSE 65; RESP 20; TEMP 35.9; O2SAT 100
[2021-12-22 07:38] LABS: Glucose, Whole Blood 133 mg/dL (60-115)
[2021-12-22 08:13] VITALS: BP 159/75; PULSE 65; O2SAT 100
[2021-12-22] MEDS: Insulin Glargine,Hum.rec.anlog 100 UNIT/ML 10 ML VIAL 15 UNIT SUBCUT (09:04)
[2021-12-22] MEDS: SITagliptin Phosphate 100 MG TABLET PO (09:05)
[2021-12-22] MEDS: amLODIPine Besylate 10 MG TABLET PO (09:05)
[2021-12-22] MEDS: Escitalopram Oxalate 10 MG TABLET PO (09:05)
[2021-12-22] MEDS: Metoprolol Succinate ER 100 MG TAB.ER.24H PO (09:05)
[2021-12-22] MEDS: Aspirin 325 MG TABLET PO (09:05)
[2021-12-22] MEDS: Furosemide 40 MG TABLET PO (09:06)
[2021-12-22] MEDS: hydrALAZINE HCl 50 MG TABLET PO ×3 (09:06→21:27)
[2021-12-22] MEDS: Dorzolamide HCl 2 % Ophth Sol 10 ML DRPBTL 1 DROP EYE-RIGHT ×2 (09:06→21:29)
[2021-12-22] MEDS: Docusate Sodium 100 MG CAPSULE PO (09:06)
[2021-12-22] MEDS: Nystatin Powder 15 GM BOTTLE 1 APPL TOPICAL ×2 (09:06→21:29)
[2021-12-22] MEDS: Brimonidine Tartrate 0.2% Oph 5 ML BOTTLE 1 DROP EYE-RIGHT ×2 (09:06→21:29)
--- NOTE | 2021-12-22 10:41 | HO.PM.IMPN ---
Subjective Subjective Date of Service: 12/22/21 Interval History: cc: sob interval history:no complaints Respiratory Respiratory: Reports no additional respiratory complaints Gastrointestinal Gastrointestinal: Reports no additional gastrointestinal complaints Physical Exam Vital Signs: Vital Signs: Last Vital Signs Temp 96.6 F L 12/22/21 07:30 Pulse 65 12/22/21 08:13 Resp 20 12/22/21 07:30 BP 159/75 H 12/22/21 08:13 Pulse Ox 100 12/22/21 08:13 O2 Del Method 12/22/21 07:30 O2 Flow Rate 1 12/22/21 07:30 FiO2 35 12/08/21 13:00 Oxygen Flow Rate 1 12/20/21 07:00 BMI result Body Mass Index 47.9 Const: Other: Constitutional : Alert, not in distress, morbidly obese Neck : Normal inspection, Supple Cardiovascular : RRR, no JVP, trace bilateral lower extremity edema Respiratory : fair bilateral air entry, no crackles, wheezes or rhonchi, on oxygen supplement Gastrointestinal: soft, lax, Normal bowel sounds, Non tender Skin : Warm, Dry, chronic venous discoloration lower extremities Neurological : Alert & orientedx3, No focal deficit Objective Data Active Medications Acetaminophen (Acetaminophen Oral Liquid 650 Mg/20.3 Ml Solution) 650 mg PO Q6H PRN PRN Reason: Fever >101 Last Admin: 12/21/21 08:39 Dose: 650 mg Documented By: MALLORIE Acetaminophen/Butalbital/Caffeine (Butalb/Acetamin/Caff 50/325/40 Tablet) 1 tab PO Q4H PRN PRN Reason: migraine Last Admin: 12/21/21 20:25 Dose: 1 tab Documented By: CATHIE Amlodipine Besylate (Amlodipine Besylate 10 Mg Tablet) 10 mg PO DAILY [facility]; Protocol Last Admin: 12/22/21 09:05 Dose: 10 mg Documented By: MALLORIE Aspirin (Aspirin 325 Mg Tablet) 325 mg PO DAILY [facility] Last Admin: 12/22/21 09:05 Dose: 325 mg Documented By: MALLORIE Atorvastatin Calcium (Atorvastatin Calcium 10 Mg Tablet) 10 mg PO BEDTIME [facility] Last Admin: 12/21/21 20:25 Dose: 10 mg Documented By: CATHIE Brimonidine Tartrate (Brimonidine Tartrate 0.2% Oph 5 Ml Bottle) 1 drop EYE-RIGHT BID [facility] Last Admin: 12/22/21 09:06 Dose: 1 drop Documented By: MALLORIE Dextrose (Dextrose 50 % 25 Gm/50 Ml Syringe) 25 gm IVPUSH Q15M PRN; Protocol PRN Reason: per Hypoglycemia Standing Ord. Last Admin: 12/01/21 19:53 Dose: 25 gm Documented By: PEPITO Docusate Sodium (Docusate Sodium 100 Mg Capsule) 100 mg PO DAILY [facility] Last Admin: 12/22/21 09:06 Dose: 100 mg Documented By: MALLORIE Dorzolamide HCl (Dorzolamide Hcl 2 % Ophth Mona 10 Ml Drpbtl) 1 drop EYE-RIGHT BID [facility] Last Admin: 12/22/21 09:06 Dose: 1 drop Documented By: MALLORIE Enoxaparin Sodium (Enoxaparin Sodium 40 Mg/0.4 Ml Syringe) 40 mg SUBCUT Q24H [facility] Last Admin: 12/21/21 17:54 Dose: 40 mg Documented By: MALLORIE Escitalopram Oxalate (Escitalopram Oxalate 10 Mg Tablet) 10 mg PO DAILY [facility] Last Admin: 12/22/21 09:05 Dose: 10 mg Documented By: MALLORIE Furosemide (Furosemide 40 Mg Tablet) 40 mg PO DAILY [facility]; Protocol Last Admin: 12/22/21 09:06 Dose: 40 mg Documented By: MALLORIE Hydralazine HCl (Hydralazine Hcl 50 Mg Tablet) 50 mg PO TID [facility]; Protocol Last Admin: 12/22/21 09:06 Dose: 50 mg Documented By: MALLORIE Insulin Glargine (Insulin Glargine,Hum.Rec.Anlog 100 Unit/Ml 10 Ml Vial) 15 unit SUBCUT DAILY [facility] Last Admin: 12/22/21 09:04 Dose: 15 unit Documented By: MALLORIE Insulin Human Lispro (Insulin Lispro 100 Unit/Ml 3 Ml Vial) 0 unit SUBCUT QIDACHS [facility]; Protocol Last Admin: 12/22/21 07:30 Dose: Not Given Documented By: MALLORIE Non-Admin Reason: No Insulin Coverage Latanoprost (Latanoprost 0.005 % Ophth Mona 2.5 Ml Drops) 1 drop EYE-BOTH BEDTIME [facility] Last Admin: 12/21/21 20:28 Dose: 1 drop Documented By: CATHIE Levothyroxine Sodium (Levothyroxine Sodium 175 Mcg Tablet) 175 mcg PO DAILY@0600 [facility] Last Admin: 12/22/21 05:49 Dose: 175 mcg Documented By: CATHIE Metoprolol Succinate (Metoprolol Succinate Er 100 Mg Tab.Er.24h) 100 mg PO DAILY [facility]; Protocol Last Admin: 12/22/21 09:05 Dose: 100 mg Documented By: MALLORIE Naloxone HCl (Naloxone Hcl 0.4 Mg/Ml Vial) 0.2 mg IVPUSH Q2M PRN PRN Reason: Excessive sedation or RR < 8 Nystatin (Nystatin Powder 15 Gm Bottle) 1 appl TOPICAL BID [facility]; Protocol Last Admin: 12/22/21 09:06 Dose: 1 appl Documented By: MALLORIE Sitagliptin Phosphate (Sitagliptin Phosphate 100 Mg Tablet) 100 mg PO DAILY [facility] Last Admin: 12/22/21 09:05 Dose: 100 mg Documented By: MALLORIE Labs CBC & Chem 7: 12/20/21 07:04 12/20/21 07:04 Labs: Laboratory Results - last 24 hr 12/21/21 12/21/21 12/21/21 11:05 16:08 19:50 POC Glucose 235 H 170 H 106 12/22/21 07:27 POC Glucose 133 H Microbiology Microbiology Results: Microbiology 11/25/21 09:30 Fungal Identification - Preliminary Pleural Fluid No growth after 3 weeks. Assessment and Plan (1) Toxic metabolic encephalopathy: Status: Acute (2) Urinary tract infection due to ESBL Klebsiella: Status: Acute (3) Hypernatremia: Status: Acute (4) Hypokalemia: Status: Acute Plan Year old female with past medical history of COPD on home oxygen, diabetes mellitus type 2, chronic kidney disease, congestive heart failure, hypertension, hyperlipidemia, hypothyroidism, PVD and recent COVID infection month ago presented to [facility] due to symptoms of shortness of breath and noted to have a finger oximetry of 68% on room air by EMS patient was brought to [facility] with sats of 79% on CPAP she was obtunded tachypneic and was emergently intubated chest x-ray showed bilateral infiltrates congestion CTA chest showed no pulmonary embolism showed multifocal areas of consolidation abdominal CT showed retroperitoneal and mediastinal lymphadenopathy enlarged right inguinal node patient was admitted to intensive care unit, patient was treated with diuretics complicated by LEO and chronic kidney disease, antibiotics and was diagnosed to have Klebsiella pneumonia UTI, and Klebsiella in bronchial washings, due to diffuse abdominal lymphadenopathy she underwent groin lymph node aspiration and EUS aspiration of mediastinal lymph nodes, patient subsequently extubated on 12/06/2021 her renal function back to normal. currently on nasal cannula with stable oxygenation [place] [facility] [place] Toxic metabolic encephalopathy Multifactorial, prolonged ICU stay, infection , hypothyroidism Improved significantly Noticed that she did not receive levothyroxine for almost 3 weeks since ICU admission TSH of 8.8 Continue home dose levothyroxine Follow TSH as outpatient Hypernatremia resolved with fluids Encourage p.o. intake Hypokalemia replaced Acute on chronic diastolic heart failure resolved, continue maintenance lasix Acute on chronic kidney disease stage III Resolved likely secondary to CHF exacerbation and due to tubular injury creatinine normalized Acute on chronic hypoxic respiratory failure secondary to CHF exacerbation and Klebsiella pneumonia patient was recently discharged home after COVID infection on oxygen 3 L with activity, currently on 2 L of oxygen finger oximetry 97% will gradually wean oxygen as tolerated. UTI due to Klebsiella pneumoniae Finished Levaquin day 01/11 patient treated with Zosyn 4.5 g q.6 hours from 818-822 then received IV meropenem between 12 03 through 12 06 Levaquin was started on 12/04 500 mg and then 250 mg daily and then changed to 750 mg daily on 12/08 Lymphadenopathy status post aspiration findings are likely consistent with chronic lymphocytic leukemia/small lymphocytic lymphoma being followed by Dr. Ruiz Bilateral lung washings showed no malignancy To follow with Oncology as outpatient Uncontrolled hypertension Increase hydralazine to 50 mg t.i.d. Continue metoprolo and Amlodipinel Diabetes mellitus continue Lantus and insulin sliding scale, blood sugars stable Morbid obesity contributing to above medical issues low-calorie diet recommended Dysphagia followed by speech therapy on NDD 2 ground mechanical and nectar thick Need one-to-one ward assistant with meals Full code DVT prophylaxis lovenox reason for continued hospitalization:awaiting auth Quality Stroke Does the patient have a stroke diagnosis?: No VTE Prior VTE?: No VTE Risk Level:: Medical - moderate - high VTE Device Contraindication: Treatment Not Indicated VTE Drug Contraindication: N/A - Med Ordered
[2021-12-22 11:09] VITALS: BP 159/78; PULSE 68; RESP 20; TEMP 36.1; O2SAT 99
[2021-12-22 11:26] LABS: Glucose, Whole Blood 195 mg/dL (60-115)
[2021-12-22] MEDS: Insulin Lispro 100 UNIT/ML 3 ML VIAL SUBCUT ×3 (11:32→21:28)
[2021-12-22 15:37] VITALS: BP 178/72; PULSE 65; RESP 18; TEMP 36.5; O2SAT 99
[2021-12-22 16:23] LABS: Glucose, Whole Blood 178 mg/dL (60-115)
[2021-12-22] MEDS: Enoxaparin Sodium 40 MG/0.4 ML SYRINGE SUBCUT (17:03)
[2021-12-22] MEDS: Calcium Carbonate 750 MG TAB.CHEW PO (18:09)
[2021-12-22 19:31] VITALS: BP 159/67; PULSE 62; RESP 18; TEMP 36.4; O2SAT 100
[2021-12-22 19:58] LABS: Glucose, Whole Blood 152 mg/dL (60-115)
[2021-12-22] MEDS: Atorvastatin Calcium 10 MG TABLET PO (21:27)
[2021-12-22] MEDS: Latanoprost 0.005 % Ophth Sol 2.5 ML DROPS 1 DROP EYE-BOTH (21:29)
[2021-12-22 23:15] VITALS: BP 163/70; PULSE 56; RESP 16; TEMP 35.8; O2SAT 100
[2021-12-23 01:04] VITALS: TEMP 36.4
[2021-12-23 03:00] VITALS: BP 156/70; PULSE 56; RESP 20; TEMP 36.4; O2SAT 97
[2021-12-23] MEDS: Butalb/Acetamin/Caff 50/325/40 TABLET 1 TAB PO (03:45)
[2021-12-23 05:17] VITALS: BMI 47.7
[2021-12-23] MEDS: Levothyroxine Sodium 175 MCG TABLET PO (05:36)
[2021-12-23 06:45] LABS: Anion Gap 14 (12-20); Blood Urea Nitrogen 11 mg/dL (9-16); Calcium 9.4 mg/dL (8.4-10.2); Carbon Dioxide 33 mmol/L (22-29); Chloride 96 mmol/L (96-108); Creatinine Clr Calc Pharmacy 111.3; Estimated Glomerular Filt Rate > 60; Glucose Fasting 97 mg/dL (60-99); Potassium 3.4 mmol/L (3.3-5.1); Sodium 140 mmol/L (135-145)
[2021-12-23 06:47] LABS: Hematocrit 38.7 % (37.0-47.0); Mean Corpuscular Hemoglobin 25.8 pg (27.0-33.0); Mean Corpuscular Volume 83.2 fL (80.0-98.0); Mean Platelet Volume 12.6 fL (9.4-12.3); Platelet Count 154 X10*3/uL (160-400); Red Blood Count 4.65 X10*6/uL (4.20-5.50); Red Cell Distribution Width 17.2 % (11.0-16.0); White Blood Count 10.3 X10*3/uL (4.8-10.8)
[2021-12-23 07:00] VITALS: O2SAT 100
[2021-12-23 07:22] LABS: Glucose, Whole Blood 100 mg/dL (60-115)
[2021-12-23 07:26] VITALS: BP 166/79; PULSE 59; RESP 16; TEMP 36.4; O2SAT 100
[2021-12-23] MEDS: amLODIPine Besylate 10 MG TABLET PO (08:58)
[2021-12-23] MEDS: SITagliptin Phosphate 100 MG TABLET PO (08:58)
[2021-12-23] MEDS: Escitalopram Oxalate 10 MG TABLET PO (08:58)
[2021-12-23] MEDS: Furosemide 40 MG TABLET PO (08:58)
[2021-12-23] MEDS: Docusate Sodium 100 MG CAPSULE PO (08:58)
[2021-12-23] MEDS: Aspirin 325 MG TABLET PO (08:58)
[2021-12-23] MEDS: Insulin Glargine,Hum.rec.anlog 100 UNIT/ML 10 ML VIAL 15 UNIT SUBCUT (08:59)
[2021-12-23] MEDS: Metoprolol Succinate ER 100 MG TAB.ER.24H PO (08:59)
[2021-12-23] MEDS: hydrALAZINE HCl 50 MG TABLET PO (08:59)
[2021-12-23] MEDS: Nystatin Powder 15 GM BOTTLE 1 APPL TOPICAL (09:10)
[2021-12-23] MEDS: Dorzolamide HCl 2 % Ophth Sol 10 ML DRPBTL 1 DROP EYE-RIGHT (09:13)
[2021-12-23] MEDS: Brimonidine Tartrate 0.2% Oph 5 ML BOTTLE 1 DROP EYE-RIGHT (09:13)
--- NOTE | 2021-12-23 09:45 | MHC.CM.PN ---
Per ROUNDS discussion, Patient has been medically cleared for dc to SNF/STR today. [facility] has received authorization from [facility] and Patient will dc there today at 1PM, via [facility]. CM addressed IMM with Patient's Niece/HCP/Patricia @ [phone], who has requested to inform/remind Patient of this dc plan herself via a phone call (RN has agreed to assist Patient with this phone call).
--- NOTE | 2021-12-23 10:22 | MHC.CLN ---
F/U PO INTAKE 25% TO 50% DIET RX: 2200DM GRD M/S -APPROPRIATE PT RECEIVING GLUCERNA SUPPLEMENTS AND MAGIC CUP BID TO INCREASE KCALS AND PROMOTE WOUND HEALING SUPP PROVIDES 1054 TOTAL KCALS, 38G PROTEIN WITH 100% ACCEPTANCE CONTINUE TO MONITOR PO INTAKE CLOSELY
[2021-12-23 11:09] LABS: Glucose, Whole Blood 172 mg/dL (60-115)
[2021-12-23 11:30] VITALS: BP 160/70; PULSE 65; RESP 18; TEMP 36.6; O2SAT 100
--- NOTE | 2021-12-23 11:52 | P.DS_ITS ---
DS: Providers Provider Date of Service: 12/23/21 Date of admission: 11/19/21 22:42 Primary care physician: Tam Corea MD Consults: 11/23/21 11:23 Consult to Nephrology Routine Consulting Provider: En Molina Reason for consultation: LEO Has provider been notified: Yes 11/25/21 11:47 Consult to Hematology / Oncology Routine Consulting Provider: Maribell Ruiz Reason for consultation: Prominent lymphadenopathy Has provider been notified: Yes 11/30/21 09:09 Consult to Pulmonology Routine Consulting Provider: Blaise Julian Reason for consultation: vent dependnt-possible lymphoma Has provider been notified: Yes 12/03/21 10:36 Consult to Infectious Diseases Routine Consulting Provider: Melody Chawla Reason for consultation: Restricted abx - meropenem (ESBL pos) Has provider been notified: Yes 12/04/21 09:27 Consult to Wound Care Routine Consulting Provider: [facility] W[facility] Care Management Reason for consultation: ADVISE AND TREAT OF WOUND TO BUTTOCK AND THIGH Has provider been notified: Yes 12/06/21 06:51 Consult to Infectious Diseases Routine Consulting Provider: Melody Chawla Reason for consultation: Caspofungin Order Has provider been notified: No DS: Diagnosis Discharge Diagnosis (1) Toxic metabolic encephalopathy: Status: Acute (2) Urinary tract infection due to ESBL Klebsiella: Status: Acute (3) Hypernatremia: Status: Acute (4) Hypokalemia: Status: Acute (5) Lymphadenopathy, mediastinal: Status: Acute (6) Acute respiratory failure with hypoxia: Status: Acute (7) Acute exacerbation of congestive heart failure: Status: Acute (8) LEO (acute kidney injury): Status: Acute (9) Sepsis: Status: Acute (10) Diabetes mellitus with insulin therapy: Status: Acute (11) Hypothyroidism: Status: Acute DS: Summary Hospital Course Hospital Course: The patient has prolonged hospital stay. For full details please returned to EMR. Admission note HPI Patient is a? 71-year-old female with a past medical history of? COPD (on home 02), congestive heart failure, diabetes mellitus? type 2,? chronic kidney disease,? hyperlipidemia, hypertension, hypothyroidism, peripheral vascular disease,? and recent COVID infection with admission x 1 month ago? who presented to the emergency room? via EMS with complaint of dyspnea.? Per EMS, patient?s saturation 68% on room air,? low 70s on 2 L via nasal cannula,? she was placed on CPAP during? transfer to hospital.? On arrival to the emergency room? she was satting 79% on CPAP, obtunded, very tachypneic requiring emergent intubation.?Laboratory data significant for? WBC 16.7, hemoglobin 10.1, hematocrit 33, neutrophils 88,? BUN 20, creatinine 1.26, albumin 3.2.??Venous blood gas 7.50/33/116/26IMAGING:Chest Xray:? with some signs of congestion and bilateral infiltrates?Chest CTA:? no pulmonary embolism.? Multifocal areas of consolidation more on left lower lobe. Abdominal CT: Persistent mediastinal lymphadenopathy. There is retroperitoneal lymphadenopathy. Enlarged right inguinal lymph node. These findings are nonspecific. Metastatic disease is possible. ?In the emergency room the patient received? 2 L of normal saline, and empiric Zosyn. Hospital course The patient was intubated and admitted to the ICU as she was hypoxic on time of presentation to the hospital. Chest x-ray showed bilateral infiltrates suggestive of heart failure versus pneumonia. CTA was negative for PE at time of presentation. Treated with diuretics, antibiotics as she was found to have Klebsiella pneumonia UTI infection. Weaned of slowly in the ICU as she spent almost 20 days on the ventilator. Extubated on 12/06/2021. Transferred to the medical floor were she was continued on oral Lasix with good response as her oxygen saturation improved to 100% on 2-3 L of oxygen. Finish total of 10 days of antibiotics for treatment of ESBL Klebsiella pneumonia with Levaquin. Images of the abdomen was consistent with diffuse abdominal lymphadenopathy which she was underwent groin lymph node aspiration and EUS aspiration of mediastinal lymph nodes. Findings likely consistent with chronic lymphocytic leukemia/small lymphocytic lymphoma being followed by Dr. Ruiz.Bilateral lung washings showed no malignancy. To follow with Oncology as outpatient. Kidney function improved back to baseline prior to discharge. Electrolyte imbalance also resolved including hypernatremia and hypokalemia. Blood pressure was noted to be significantly elevated. Metoprolol and hydralazine were added with fair response. Will need close monitoring as outpatient. Lantus dose was decreased from home dose of 80 units to only 30 at time of discharge S the patient did not require much of insulin during the hospital stay. Her diet was advanced and changed to NDD2. Needs one-to-one assisted with meals and to be followed with speech therapy as outpatient. Mental status improved after extubation. Noted that she did not receive levothyroxine during the ICU hospital stay. Mentation improved significantly after restarting her home dose of thyroxine. TSH needs to be rechecked in 1 month. Decrease insulin Lantus to 30 units for now, adjust as needed Start hydralazine and metoprolol for better blood pressure control Discontinue amitriptyline and clonazepam Monitor your weight and report any changes to PCP Time Spent with Patient Time attestation: Total time spent providing and/or coordinating discharge services: Discharge coordination time: Greater than 30 minutes Quality: Safe Use of Opioids Does Pt have an Active Cancer Diagnosis on the Problem List?: No Quality: Stroke Does the patient have a stroke diagnosis?: No Physical Exam Vital Signs: Vital Signs: Last Vital Signs Temp 98 F 12/23/21 11:30 Pulse 65 12/23/21 11:30 Resp 18 12/23/21 11:30 BP 160/70 H 12/23/21 11:30 Pulse Ox 100 12/23/21 11:30 O2 Del Method 12/23/21 11:30 O2 Flow Rate 3 12/23/21 11:30 FiO2 35 12/08/21 13:00 Oxygen Flow Rate 1 12/23/21 07:00 BMI result Body Mass Index 47.7 Const: Other: Constitutional : Alert, not in distress, morbidly obese Neck : Normal inspection, Supple Cardiovascular : RRR, no JVP, trace bilateral lower extremity edema Respiratory : fair bilateral air entry, no crackles, wheezes or rhonchi, on oxygen supplement Gastrointestinal: soft, lax, Normal bowel sounds, Non tender Skin : Warm, Dry, chronic venous discoloration lower extremities Neurological : Alert & orientedx3, No focal deficit DS: Data Data Completed and Pending Completed studies during hospitalization [Text1]: Pending at discharge 11/25/21 10:34 Surgical Path [Surgical] [PTH] Routine 11/25/21 10:35 Cytology [PTH] Routine 12/03/21 09:07 Cytology [PTH] Routine Cytology [PTH] Routine Procedures Introduction of Remdesivir Anti-infective into Peripheral Vein, Percutaneous Approach, [employer] 5 (10/11/21) Labs on day of discharge: Laboratory Results - last 24 hr 09/12/22/21 12/23/21 16:19 19:55 06:00 WBC 10.3 RBC 4.65 Hgb 12.0 Hct 38.7 MCV 83.2 MCH 25.8 L MCHC 31.0 RDW 17.2 H Plt Count 154 L MPV 12.6 H Absolute Nucleated RBC 0.000 Nucleated RBC % (auto) 0.0 Sodium Potassium Chloride Carbon Dioxide Anion Gap BUN Creatinine Estim Creat Clear Calc Estimated GFR POC Glucose 178 H 152 H Fasting Glucose Calcium 12/23/21 12/23/21 12/23/21 06:00 07:19 11:06 WBC RBC Hgb Hct MCV MCH MCHC RDW Plt Count MPV Absolute Nucleated RBC Nucleated RBC % (auto) Sodium 140 Potassium 3.4 Chloride 96 Carbon Dioxide 33 H Anion Gap 14 BUN 11 Creatinine 0.64 Estim Creat Clear Calc 111.3 Estimated GFR > 60 POC Glucose 100 172 H Fasting Glucose 97 Calcium 9.4 D Preliminary micro results at discharge 11/25/21 09:30 Fungal Identification - Preliminary Pleural Fluid No growth after [address] scan - chest: Radiologist's impression: ITS Impressions Chest X-Ray 11/19/21 17:29 IMPRESSION: Low lung volumes with diffuse bilateral patchy infiltrates. Bilateral layering effusions. Endotracheal tube tip is 3.5 cm from the colette. Abdomen/Pelvis CT 11/19/21 21:51 IMPRESSION: 1. No pulmonary embolism. 2. Small left and moderate right pleural effusions. Multifocal areas of consolidation, particularly in the left lower lobe. This could be near complete atelectasis of this lobe. Pneumonia must be considered as well. 3. Persistent mediastinal lymphadenopathy. There is retroperitoneal lymphadenopathy. Enlarged right inguinal lymph node. These findings are nonspecific. Metastatic disease is possible. 4. Endotracheal tube terminates approximately 1.7 cm above the colette. Consider slight retraction. VTE: negative Chest CTA 11/19/21 21:51 IMPRESSION: 1. No pulmonary embolism. 2. Small left and moderate right pleural effusions. Multifocal areas of consolidation, particularly in the left lower lobe. This could be near complete atelectasis of this lobe. Pneumonia must be considered as well. 3. Persistent mediastinal lymphadenopathy. There is retroperitoneal lymphadenopathy. Enlarged right inguinal lymph node. These findings are nonspecific. Metastatic disease is possible. 4. Endotracheal tube terminates approximately 1.7 cm above the colette. Consider slight retraction. VTE: negative Chest X-Ray 11/20/21 21:45 IMPRESSION: 1. Left internal jugular catheter tip terminating at the right brachiocephalic/caval junction. 2. CHF and small bilateral pleural effusions without significant change. Chest CT 11/23/21 18:48 IMPRESSION: 1. Moderate-sized bilateral pleural effusions right larger than left, similar to prior. 2. Extensive bilateral airspace opacities presumably atelectasis though cannot exclude superimposed pneumonia. The entire left lower lobe and lingula are completely opacified. 3. Mediastinal mild axillary and upper abdominal lymphadenopathy, which could be due to underlying lymphoproliferative process/lymphoma or metastatic disease. Correlate clinically. Thoracentesis Ultrasound 11/25/21 10:30 IMPRESSION: Ultrasound-guided right thoracentesis. Chest X-Ray 11/25/21 10:55 IMPRESSION: -Stable support apparatus. -No pneumothorax status post thoracentesis. Lymph Node Biopsy Ultrasound 11/25/21 11:00 IMPRESSION: Ultrasound-guided right inguinal lymph node biopsy. Thoracentesis/Paracentesis US 11/27/21 13:10 IMPRESSION: Ultrasound-guided left thoracentesis. Chest X-Ray 11/27/21 14:21 IMPRESSION: No pneumothorax post left thoracentesis. Chest X-Ray 11/30/21 08:46 IMPRESSION: No significant change when compared to 11/27/2021. Chest X-Ray 12/08/21 06:46 IMPRESSION: Stable chest x-ray exam with enlargement of the cardiac silhouette, left lung volume loss, bilateral airspace disease and pleural effusions. Discharge Plan Discharge Patient Disposition: [facility] Discharge Diagnosis: Toxic metabolic encephalopathy Acute heart failure Acute respiratory failure Electrolyte imbalance UTI Referrals: [facility] [Outside] - 1 Week Tam Corea MD [Primary Care Provider] - 1 Week Discharge Medications: New metoprolol succinate 100 mg Tablet Extended Release 24 Hr 100 mg PO DAILY 30 Days Qty: 30 0RF Protocol: Hold for SBP/HR < HOLD for SBP < : 90 HOLD for HR < : 60 hydralazine 50 mg Tablet 50 mg PO TID 30 Days Qty: 90 0RF Protocol: Hold for SBP< HOLD for SBP < : 90 nystatin 100,000 unit/gram Powder 1 appl topical BID 7 Days Qty: 30 0RF Protocol: Apply to: Apply to: intertriginous areas Continued furosemide 40 mg tablet 40 tab PO BID@0900,1800 levothyroxine 175 mcg tablet 175 mcg PO DAILY@0600 citalopram 20 mg tablet 20 mg PO DAILY simvastatin 20 mg tablet 20 mg PO BEDTIME chlordiazepoxide HCl 10 mg capsule 10 mg PO BEDTIME hydroxychloroquine 200 mg tablet 200 mg PO BID insulin lispro protamin-lispro 100 unit/mL (75-25) insulin pen 7 - 15 ea subcut TIDAC Januvia 100 mg tablet 100 mg PO DAILY Simbrinza 1-0.2 % drops,suspension 1 drp ophthalmic-Right BID Rocklatan 0.02-0.005 % drops 1 drp ophthalmic (eye) BEDTIME multivitamin Tablet 1 tab PO DAILY aspirin 325 mg Tablet 325 mg PO DAILY docusate sodium 100 mg Tablet 100 mg PO DAILY amlodipine 10 mg tablet 10 mg PO DAILY Qty: 30 0RF latanoprost 0.005 % drops 1 drp ophthalmic (eye) BEDTIME prednisolone drops ophthalmic-Right 1XD timolol bottle ophthalmic (eye) 2XD Changed insulin glargine [Lantus Solostar U-100 Insulin] 100 unit/mL (3 mL) insulin pen 30 unit subcut BEDTIME Qty: 15 0RF Discontinued clonazepam 0.5 mg tablet 0.5 mg PO BID amitriptyline 50 mg tablet 25 mg PO DAILY Discharge Orders: Discharge Order (Routine); Ordered 12/23/21 Ordered By: Wilbert High Diet: NDD 2, 240 Glucerna Activity on Discharge: As tolerated Stand Alone Forms: Patient Portal Discharge page Other Ambulatory Orders: Immunofixation Pnl, Serum (Routine) Timeframe: 20211125 Facility: [facility] - Location: Laboratory Ordered By: Maribell Ruiz Lactate Dehydrogenase (Routine) Timeframe: 20211125 Facility: [facility] - Location: Laboratory Ordered By: Maribell Ruiz Leukemia/Lymphoma Eval. Blood (Routine) Timeframe: 20211125 Facility: [facility] - Location: Laboratory Ordered By: Maribell Ruiz Protein Electrophoresis, Serum (Routine) Timeframe: 20211125 Facility: [facility] - Location: Laboratory Ordered By: Maribell Ruiz Uric Acid (Routine) Timeframe: 20211125 Facility: [facility] - Location: Laboratory Ordered By: Maribell Ruiz Care Plan Goals: Read below Health Concerns: Read below Plan of Treatment: Read below Assessment: You were admitted to the hospital for difficulty breathing. Found to be in hypoxic respiratory failure as a result of of heart failure and urinary tract infection. Required admission to ICU for prolonged stay. Improved significantly as you were weaned off of oxygen supplement. Heart failure responded to medical treatment. Kidney function improved back to baseline. Urinary tract infection treated with antibiotics with good response. Evaluated by Physical therapy who recommended short-term rehab. Decrease insulin Lantus to 30 units for now, adjust as needed Start hydralazine and metoprolol for better blood pressure control Discontinue amitriptyline and clonazepam Monitor your weight and report any changes to PCP
[2021-12-23 13:17] LABS: COVID-19 Test Negative (Negative)
== END 2021-12-23 14:38 | disposition skilled nursing facility (03) | DRG 853 ==
LOC: HO.ED 22:06 → HO.EDOVER 22:53 → HO.ICU 23:18 → HO.IMC 12-09 09:12
PROVIDERS: Anesthesiology; Hospitalist; Internal Medicine; Internal Medicine Cardiovascular Disease; Internal Medicine Nephrology; Internal Medicine Pulmonary Disease; Pathology Anatomic Pathology & Clinical Pathology; Physician Assistant; Physician Assistant Medical; Radiology Diagnostic Radiology; Admitting Provider Registered Nurse Community Health; Emergency Provider Emergency Medicine; PCP Internal Medicine; Visit Provider Student in an Organized Health Care Education/Training Program
PROC: 07B74ZX Excision of Thorax Lymphatic, Percutaneous Endoscopic Approach, Diagnostic (ICD-10-PCS; principal; 2021-12-03 08:00)
DX: A41.9 Sepsis, unspecified organism (principal); G92.8 Other toxic encephalopathy; I50.33 Acute on chronic diastolic (congestive) heart failure; N17.0 Acute kidney failure with tubular necrosis; J96.21 Acute and chronic respiratory failure with hypoxia; J15.0 Pneumonia due to Klebsiella pneumoniae; C91.10 Chronic lymphocytic leukemia of B-cell type not having achieved remission; J91.8 Pleural effusion in other conditions classified elsewhere; I13.0 Hypertensive heart and chronic kidney disease with heart failure and stage 1 through stage 4 chronic kidney disease, or unspecified chronic kidney disease; J98.11 Atelectasis; J98.19 Other pulmonary collapse; E87.0 Hyperosmolality and hypernatremia; Z16.12 Extended spectrum beta lactamase (ESBL) resistance; E66.2 Morbid (severe) obesity with alveolar hypoventilation; Z68.42 Body mass index [BMI] 45.0-49.9, adult; N18.30 Chronic kidney disease, stage 3 unspecified; E03.9 Hypothyroidism, unspecified; E11.22 Type 2 diabetes mellitus with diabetic chronic kidney disease; L89.321 Pressure ulcer of left buttock, stage 1; L89.311 Pressure ulcer of right buttock, stage 1; R13.10 Dysphagia, unspecified; E11.51 Type 2 diabetes mellitus with diabetic peripheral angiopathy without gangrene; E87.6 Hypokalemia; I50.810 Right heart failure, unspecified; B96.1 Klebsiella pneumoniae [K. pneumoniae] as the cause of diseases classified elsewhere; G93.2 Benign intracranial hypertension; Z20.822 Contact with and (suspected) exposure to COVID-19; Z86.73 Personal history of transient ischemic attack (TIA), and cerebral infarction without residual deficits; Z99.81 Dependence on supplemental oxygen; Z86.16 Personal history of COVID-19; Z88.5 Allergy status to narcotic agent; Z79.4 Long term (current) use of insulin; Z79.82 Long term (current) use of aspirin; Z79.890 Hormone replacement therapy; Z79.899 Other long term (current) drug therapy
CPT/HCPCS: 32555; 32557; 36415; 38505; 71045; 71250; 71275; 74177; 76942; 80048; 80053; 80076; 81001; 82040; 82150; 82803; 82945; 82947; 83520; 83605; 83615; 83735; 83880; 84100; 84145; 84157; 84300; 84443; 84484; 84550; 85025; 85027; 85379; 85610; 86021; 86140; 86160; 87040; 87070; 87071; 87073; 87077; 87086; 87088; 87102; 87116; 87147; 87186; 87205; 87635; 88112; 88172; 88173; 88184; 88185; 88300; 88305; 88341; 88342; 88360; 88374; 89051; 92526; 92610; 93005; 93306; 94002; 94003; 94640; 96361; 96365; 96366; 96375; 97110; 97163; 97167; 97530; 99285; C1758; J0131; J0171; J0637; J1170; J1650; J1940; J1956; J2185; J2250; J2543; J2930; J3010; J3370; J3475; P9047; Q9967

== ENCOUNTER 2022-02-04 11:10 | Emergency (ER) | payer OTHER, SELFPAY ==
--- NOTE | ~2022-02-04 | XR_ITS ---
EXAMINATION: XR CHEST CLINICAL INFORMATION: Short of breath COMPARISON: 12/08/2021 TECHNIQUE: 2 views of the chest were obtained. FINDINGS: The lungs are well expanded. There is no focal consolidation, edema, or effusion. Mild bronchial wall thickening. No pneumothorax. The cardiomediastinal silhouette is within normal limits of size with a calcified aorta. No acute osseous abnormality. XR/XR chest 2V IMPRESSION: No consolidation. Bronchial wall thickening can be seen with a small airways process such as asthma or atypical/viral infection.
--- NOTE | 2022-02-04 11:18 | ECG_ITS ---
Test Reason : sob Blood Pressure : / mmHG Vent. Rate : 082 BPM Atrial Rate : 082 BPM P-R Int : 202 ms QRS Dur : 100 ms QT Int : 406 ms P-R-T Axes : 041 080 -03 degrees QTc Int : 474 ms Normal sinus rhythm Intra-ventricular conduction delay T-wave inversion in Inferior leads Abnormal ECG When compared with ECG of 06-DEC-2021 22:56, Premature atrial complexes are no longer Present Nonspecific T wave abnormality no longer evident in Lateral leads QT has lengthened Referred By: Tona Ohara Electronically Signed By:YONIS EVANS MD
--- NOTE | 2022-02-04 11:30 | ED_ITS ---
HPI - SOB/Dyspnea General Chief Complaint: Dyspnea Stated Complaint: SOB,80% HOME O2 FROM SNF PER EMS Time Seen by Provider: 02/04/22 11:12 Source: patient, family, EMS, RN notes reviewed and old records reviewed Mode of arrival: EMS Limitations: no limitations History of Present Illness HPI Narrative: 71-year-old female with past medical history of COPD, on home O2 at 2 L, congestive heart failure, diabetes, CKD, hyperlipidemia, hypertension, hypothyroidism, PVD, recent COVID infection in October of 2019, recent admission to ICU for respiratory distress presents today via ambulance. Patient was treated for exacerbation of COPD week ago with prednisone. In the last few days patient has developed increased productive cough. No fevers reported. [facility] This morning O2 sats down to 80 on 2 L. Respiratory rate up. Patient was short of breath. Upon last admission patient had CTA of the chest that showed no pulmonary embolism. Small right pleural effusion, multifocal areas of consolidation in the left lobe as well. Patient had persistent mediastinal lymphadenopathy and retroperitoneal lymphadenopathy. She had noticeable pulmonary congestion on last admission was in congestive heart failure. Patient required intubation last admission due to her O2 sats in low 80s. Acute kidney injury related to hypoperfusion, she had basilar infiltrate and bronchoscopy. Klebsiella pneumonia ESBL was present with sensitivity to Ertapenem and Levaquin. MD elicited complaint: shortness of breath and cough Pertinent past history: COPD, congestive heart failure and diabetes Onset (ago): hour(s) Context: recent illness Exacerbating factors: nothing Relieving factors: rest Related Data Home Medications Medication Instructions Recorded Confirmed aspirin 325 mg tablet 325 mg PO DAILY 10/08/21 11/20/21 brinzolamide 1 %-brimonidine 0.2 % 1 drp ophthalmic-Right BID 10/08/21 11/20/21 eye drops,suspension (Simbrinza) chlordiazepoxide HCl 10 mg capsule 10 mg PO BEDTIME 10/08/21 11/20/21 citalopram 20 mg tablet 20 mg PO DAILY 10/08/21 11/20/21 docusate sodium 100 mg tablet 100 mg PO DAILY 10/08/21 11/20/21 furosemide 40 mg tablet 40 tab PO BID@0900,1800 10/08/21 11/20/21 hydroxychloroquine 200 mg tablet 200 mg PO BID 10/08/21 11/20/21 insulin lispro protamine-lispro 7 - 15 ea subcut TIDAC 10/08/21 11/20/21 100 unit/mL (75-25) subcutaneous pen levothyroxine 175 mcg tablet 175 mcg PO DAILY@0600 10/08/21 11/20/21 multivitamin 1 tab PO DAILY 10/08/21 11/20/21 netarsudil 0.02 %-latanoprost 1 drp ophthalmic (eye) BEDTIME 10/08/21 11/20/21 0.005 % eye drops (Rocklatan) simvastatin 20 mg tablet 20 mg PO BEDTIME 10/08/21 11/20/21 sitagliptin 100 mg tablet (Januvia) 100 mg PO DAILY 10/08/21 11/20/21 latanoprost 0.005 % eye drops 1 drp ophthalmic (eye) BEDTIME 11/20/21 11/20/21 prednisolone ophthalmic-Right 1XD 12/07/21 timolol drp ophthalmic (eye) 2XD 12/07/21 Previous Rx's Medication Instructions Recorded amlodipine 10 mg tablet 10 mg PO DAILY #30 tabs 10/16/21 hydralazine 50 mg tablet 50 mg PO TID 30 days #90 tabs 12/23/21 insulin glargine 100 unit/mL (3 30 unit (0.3 mL) subcut BEDTIME 12/23/21 mL) subcutaneous pen (Lantus #15 mL Solostar U-100 Insulin) metoprolol succinate 100 mg 100 mg PO DAILY 30 days #30 tabs 12/23/21 tablet,extended release 24 hr nystatin 100,000 unit/gram topical 1 appl topical BID 7 days #30 grams 12/23/21 powder azithromycin 500 mg tablet 500 mg PO DAILY 3 days #3 tabs 02/04/22 prednisone 20 mg tablet 40 mg PO DAILY #10 tabs 02/04/22 Allergies Allergy/AdvReac Type Severity Reaction Status Date / Time oxycodone [From Percocet] Allergy Intermediate Rash Verified 11/19/21 17:16 Review of Systems Review of Systems: Constitutional : No Weight loss, No Fever, No Chills, No Night Sweats, Fatigue, Malaise ENT/Mouth : No Hearing loss, No Ear Pain, No Nasal Congestion, No Sinus Pain, No Hoarseness, No sore throat, No Rhinorrhea, No Swallowing Difficulty Eyes: No Eye Pain, No Swelling, No Redness, No Foreign Body, No Discharge, No Vision Changes Cardiovascular : No Chest Pain, SOB, No Dyspnea on Exertion, No Orthopnea, No Edema, No Palpitations Respiratory : Cough, Sputum, Wheezing, No Smoke Exposure, No Dyspnea Gastrointestinal : No Nausea, No Vomiting, No Diarrhea, No Constipation, No abdominal Pain, No Hematochezia, No Melena Genitourinary : no irregular bleeding, No Dysuria, No Urinary Frequency, No Hematuria, No Urinary Incontinence, No Urgency, No Flank Pain, No Urinary Flow Changes, No Hesitancy Musculoskeletal : No joint pain, Myalgias L leg pain, No Joint Swelling Skin : No Skin Lesions, No rash Neuro : No Weakness, No Numbness, No Paresthesias, No Loss of Consciousness, No Dizziness, No Headache Psych : No Anxiety/Panic, No Depression, No SI/HI/AH/VH, No Social Issues, Heme/Lymph: No Bruising, No Bleeding, Endocrine : No Polyuria, No Polydipsia, No Temperature Intolerance Yes all other systems are reviewed and are negative [facility] Past Medical History Medical History (Updated 02/04/22 @ 13:56 by Tona Ohara, [facility] [place]) CKD (chronic kidney disease) Congestive heart failure COVID Diabetes mellitus with insulin therapy Essential hypertension HLD (hyperlipidemia) HTN (hypertension) Hypothyroidism Infection with ESBL Klebsiella oxytoca Klebsiella pneumonia Lower extremity edema Lymphadenopathy, mediastinal Migraine Obesity Pleural effusion Pseudotumor cerebri PVD (peripheral vascular disease) Suspected deep tissue injury Surgical History H/O cataract extraction H/O hysterectomy for benign disease Hx of cholecystectomy S/P appendectomy Family History Family History Mother Heart attack, Onset Age: 92 Father Heart attack, Onset Age: 66 Other Diabetes Social History Social History Alcohol intake: never Patient Tobacco Use Status: Never used Tobacco Advance Directives: Yes Advance Directives on File: Yes Advance Directives Date on File: 09/26/20 service: No Current occupational status: disabled Physical Exam Vital Signs: Vital Signs: Last Vital Signs Temp 96.6 F L 02/04/22 14:42 Pulse 81 02/04/22 16:00 Resp 18 02/04/22 16:00 BP 177/66 H 02/04/22 14:42 Pulse Ox 100 02/04/22 14:42 O2 Del Method 02/04/22 14:42 O2 Flow Rate 2 02/04/22 14:42 BMI result Body Mass Index 47.8 Const: General: alert, awake, acute distress and ill appearing Nutritional Appearance: obese Orientation/consciousness: patient oriented x3 HEENT: Head: Yes normal to inspection, Yes normocephalic and Yes atraumatic General nose exam: Normal external nose present and Normal nares present Face and sinus: Yes normal facial exam Mouth: Normal oral and palatal mucosa present Throat: Yes posterior oropharynx normal, Yes tonsils normal and Yes uvula midline Eyes: General: appearance normal, both eyes and all related structures Neck: Neck: Yes normal visual inspection, Yes full ROM and Yes trachea midline Thyroid: Thyroid normal Resp: Effort & Inspection: able to speak in complete sentences, abnormal respiratory pattern, audible wheezes, respiratory distress (RR 32), no tracheal deviation and symmetric chest movement Auscultation: crackles and wheezes expiratory wheezes, inspiratory wheezes and throughout Cardio: Jugular venous distension: no JVD Rate: regular rate Heart sounds: S1 normal heart sound present, S2 normal heart sound present, no gallops and no murmurs GI: Inspection: Yes normal to inspection and No distended Palpation (GI): Soft to palpation, not firm, nontender and No hepatosplenomegaly present Auscultation: normal bowel sounds : General: Yes no CVA tenderness Back/Spine/Pelvis: Back: no CVA tenderness Skin: General skin exam: elasticity normal, turgor normal and dry skin Neuro: General: patient oriented x3 Extrem: General: Yes capillary refill normal, No no clubbing, cyanosis or edema, Yes no calf tenderness and No edema Psych: Appearance: grossly normal Mental Status: mental status grossly n ormal Speech and movement: Normal speech and movement present Affect: normal affect Attitude: cooperative Thought process: Normal thought process present Thought content: Normal thought content present Insight: Good insight present (Psych) Judgement: Good judgement present (Psych) Course Course Course Narrative: 71-year-old female with past medical history of COPD, on home O2 at 2 L, congestive heart failure, diabetes, CKD, hyperlipidemia, hypertension, hypothyroidism, PVD, recent COVID infection in October of 2019, recent admission to ICU for respiratory distress presents today via ambulance. Patient was treated for exacerbation of COPD week ago with prednisone. In the last few days patient has developed increased productive cough. No fevers reported. [facility]. This morning O2 sats down to 80 on 2 L. Respiratory rate up. Patient was short of breath. Upon last admission patient had CTA of the chest that showed no pulmonary embolism. Small right pleural effusion, multifocal areas of consolidation in the left lobe as well. Patient had persistent mediastinal lymphadenopathy and retroperitoneal lymphadenopathy. She had noticeable pulmonary congestion on last admission was in congestive heart failure. Patient required intubation last admission due to her O2 sats in low 80s.. Acute kidney injury related to hypoperfusion, she had basilar infiltrate and bronchoscopy. Klebsiella pneumonia ESBL was present with sensitivity to Ertapenem and Levaquin. Will do blood culture, CBC, BMP, BNP, lactic, suspicion for infection, EKG, chest x-ray. Will give her 60 mg of Solu-Medrol. Patient already had low-dose prednisone [facility] the [facility]. Will give her 40 mg of Lasix. Reevaluation(s) Reevaluation #1: Pt's BNP is 924, WBC 20.3, neutrophils 87, lymph 4.4 lactic acid 0.8 Time: 12:01 Reevaluation #2: Lung sounds improved after treatment. Patient does still have mild blockers. Mild expiratory wheeze mid left and right low, greater on the left. Time: 12:23 Reevaluation #3: Positive for RSV, no COVID or flu. Chest x-ray does not show any acute processes. Time: 13:08 Additional Reevaluation(s): Patient is feeling much better. Her O2 sats has improved. 96% on 2 L. will orange right via ambulance. MDM - SOB/Dyspnea Differential Diagnosis Differential diagnosis: Likely acute exacerbation of chronic obstructive airways disease and congestive heart failure Medical Records Attestation: I reviewed the patient's medical records. Lab Data Result diagrams: 02/04/22 11:30 02/04/22 11:55 Labs: Lab Results 02/04/22 02/04/22 02/04/22 Range/Units 11:30 11:30 11:30 WBC 20.3 H (4.8-10.8) X10*3/uL RBC 4.65 (4.20-5.50) X10*6/uL Hgb 12.4 (12.0-16.0) g/dl Hct 39.9 (37.0-47.0) % MCV 85.8 (80.0-98.0) fL MCH 26.7 L (27.0-33.0) pg MCHC 31.1 (31.0-35.0) g/dl RDW 15.7 (11.0-16.0) % Plt Count 282 D (160-400) X10*3/uL MPV 11.9 (9.4-12.3) fL Immature Gran % (Auto) 1.2 H (0.0-0.4) % Neut % (Auto) 87.0 H (45-73) % Lymph % (Auto) 4.4 L (20-40) % [place] % (Auto) 5.5 (2-11) % Eos % (Auto) 1.1 (0-4) % Baso % (Auto) 0.8 (0-2) % Lymph # (Auto) 0.9 L (1.2-4.9) X10*3/uL [place] # (Auto) 1.1 (0.1-1.2) X10*3/uL Eos # (Auto) 0.2 (0.0-0.4) X10*3/uL Baso # (Auto) 0.2 (0.0-0.2) X10*3/uL Abs Immat Gran (auto) 0.24 H (0.00-0.03) X10*3/uL Absolute Neuts (auto) 17.7 H (2.0-8.3) x10*3/uL Absolute Nucleated RBC 0.000 (0.0-0.012) X10*3/uL Nucleated RBC % (auto) 0.0 (0.0-0.2) /100WBC Sodium (135-145) mmol/L Potassium (3.3-5.1) mmol/L Chloride (96-108) mmol/L Carbon Dioxide (22-29) mmol/L Anion Gap (12-20) BUN (9-16) mg/dL Creatinine (0.5-1.4) mg/dL Estim Creat Clear Calc Estimated GFR Random Glucose (60-115) mg/dL Lactic Acid (0.5-2.0) mmol/L Calcium (8.4-10.2) mg/dL Troponin I High Sens 12.7 D (<3.5-17.0) ng/L B-Natriuretic Peptide 924 H (<100) pg/mL Influenza Type A (PCR) NEGATIVE (Negative) Influenza Type B (PCR) NEGATIVE (Negative) RSV RNA Qual (PCR) POSITIVE A (Negative) SARS-CoV-2 RNA (RT-PCR) NEGATIVE (Negative) 02/04/22 02/04/22 Range/Units 11:30 11:55 WBC (4.8-10.8) X10*3/uL RBC (4.20-5.50) X10*6/uL Hgb (12.0-16.0) g/dl Hct (37.0-47.0) % MCV (80.0-98.0) fL MCH (27.0-33.0) pg MCHC (31.0-35.0) g/dl RDW (11.0-16.0) % Plt Count (160-400) X10*3/uL MPV (9.4-12.3) fL Immature Gran % (Auto) (0.0-0.4) % Neut % (Auto) (45-73) % Lymph % (Auto) (20-40) % [place] % (Auto) (2-11) % Eos % (Auto) (0-4) % Baso % (Auto) (0-2) % Lymph # (Auto) (1.2-4.9) X10*3/uL [place] # (Auto) (0.1-1.2) X10*3/uL Eos # (Auto) (0.0-0.4) X10*3/uL Baso # (Auto) (0.0-0.2) X10*3/uL Abs Immat Gran (auto) (0.00-0.03) X10*3/uL Absolute Neuts (auto) (2.0-8.3) x10*3/uL Absolute Nucleated RBC (0.0-0.012) X10*3/uL Nucleated RBC % (auto) (0.0-0.2) /100WBC Sodium 134 L (135-145) mmol/L Potassium 4.9 D (3.3-5.1) mmol/L Chloride 95 L (96-108) mmol/L Carbon Dioxide 25 (22-29) mmol/L Anion Gap 19 (12-20) BUN 40 H D (9-16) mg/dL Creatinine 1.31 (0.5-1.4) mg/dL Estim Creat Clear Calc 50.7 Estimated GFR 40 Random Glucose 310 H (60-115) mg/dL Lactic Acid 0.8 (0.5-2.0) mmol/L Calcium 8.7 D (8.4-10.2) mg/dL Troponin I High Sens (<3.5-17.0) ng/L B-Natriuretic Peptide (<100) pg/mL Influenza Type A (PCR) (Negative) Influenza Type B (PCR) (Negative) RSV RNA Qual (PCR) (Negative) SARS-CoV-2 RNA (RT-PCR) (Negative) Imaging Data Chest x-ray: Radiologist's impression: FINDINGS: The lungs are well expanded. There is no focal consolidation, edema, or effusion. Mild bronchial wall thickening. No pneumothorax. The cardiomediastinal silhouette is within normal limits of size with a calcified aorta. No acute osseous abnormality. XR/XR chest 2V IMPRESSION: No consolidation. Bronchial wall thickening can be seen with a small airways process such as asthma or atypical/viral infection. ? ECG Data Attestation: I personally reviewed and interpreted this ECG as follows: Interpretation: Ventricular rate 82, SC interval .02, QRS 0.1 QT 406, QTC 474. Discharge Plan Discharge Clinical Impression: Congestive heart failure, COPD exacerbation, Respiratory syncytial virus (RSV) Patient Disposition: er [facility] Transfer Details: BACK TO [facility] [place] Additional Instructions: You were diagnosed with RSV infection which means that you have to quarantine for 8 days after diagnosis. Make sure that you are not around young children or infants or elderly. You will require treatment with prednisone for additional stop 5 days. You will be sent home with antibiotics which you can start tomorrow. You received a dose of antibiotic today. You had high white count, however this is due to beeing on prednisone. Make sure that your provider is watching your white count at the facility. If you will have worsening symptoms of fever, shortness of breath, chest pain, increased edema to extremities you will return to emergency department for evaluation. Please continue your medications especially Lasix. Prescriptions: New azithromycin 500 mg tablet 500 mg PO DAILY 3 Days Qty: 3 0RF prednisone 20 mg tablet 40 mg PO DAILY Qty: 10 0RF No Action furosemide 40 mg tablet 40 tab PO BID@0900,1800 levothyroxine 175 mcg tablet 175 mcg PO DAILY@0600 citalopram 20 mg tablet 20 mg PO DAILY simvastatin 20 mg tablet 20 mg PO BEDTIME chlordiazepoxide HCl 10 mg capsule 10 mg PO BEDTIME hydroxychloroquine 200 mg tablet 200 mg PO BID insulin lispro protamin-lispro 100 unit/mL (75-25) insulin pen 7 - 15 ea subcut TIDAC Januvia 100 mg tablet 100 mg PO DAILY Simbrinza 1-0.2 % drops,suspension 1 drp ophthalmic-Right BID Rocklatan 0.02-0.005 % drops 1 drp ophthalmic (eye) BEDTIME multivitamin Tablet 1 tab PO DAILY aspirin 325 mg Tablet 325 mg PO DAILY docusate sodium 100 mg Tablet 100 mg PO DAILY amlodipine 10 mg tablet 10 mg PO DAILY Qty: 30 0RF latanoprost 0.005 % drops 1 drp ophthalmic (eye) BEDTIME prednisolone drops ophthalmic-Right 1XD timolol bottle ophthalmic (eye) 2XD metoprolol succinate 100 mg Tablet Extended Release 24 Hr 100 mg PO DAILY 30 Days Qty: 30 0RF Protocol: Hold for SBP/HR < HOLD for SBP < : 90 HOLD for HR < : 60 hydralazine 50 mg Tablet 50 mg PO TID 30 Days Qty: 90 0RF Protocol: Hold for SBP< HOLD for SBP < : 90 nystatin 100,000 unit/gram Powder 1 appl topical BID 7 Days Qty: 30 0RF Protocol: Apply to: Apply to: intertriginous areas insulin glargine [Lantus Solostar U-100 Insulin] 100 unit/mL (3 mL) insulin pen 30 unit subcut BEDTIME Qty: 15 0RF Referrals: Tam Corea MD [Primary Care Provider] - 1 week
[2022-02-04 11:33] VITALS: BP 137/50; PULSE 83; RESP 28; TEMP 36.8; O2SAT 83; BMI 47.8
[2022-02-04 11:37] LABS: MANUAL DIFF FLAG NO
[2022-02-04 11:40] LABS: Basophils Absolute Auto 0.2 X10*3/uL (0.0-0.2); Basophils Percent Auto 0.8 % (0-2); Eosinophils Absolute Auto 0.2 X10*3/uL (0.0-0.4); Eosinophils Percent Auto 1.1 % (0-4); Hematocrit 39.9 % (37.0-47.0); Hemoglobin 12.4 g/dl (12.0-16.0); Imm Gran Abs Auto 0.24 X10*3/uL (0.00-0.03); Imm Gran Pct Auto 1.2 % (0.0-0.4); Lymphocytes Absolute Auto 0.9 X10*3/uL (1.2-4.9); Lymphocytes Percent Auto 4.4 % (20-40); Mean Corpuscular HGB Conc 31.1 g/dl (31.0-35.0); Mean Corpuscular Hemoglobin 26.7 pg (27.0-33.0); Mean Corpuscular Volume 85.8 fL (80.0-98.0); Mean Platelet Volume 11.9 fL (9.4-12.3); Monocytes Absolute Auto 1.1 X10*3/uL (0.1-1.2); Monocytes Percent Auto 5.5 % (2-11); Neutrophils Absolute Auto 17.7 x10*3/uL (2.0-8.3); Platelet Count 282 X10*3/uL (160-400); Red Blood Count 4.65 X10*6/uL (4.20-5.50); Red Cell Distribution Width 15.7 % (11.0-16.0); White Blood Count 20.3 X10*3/uL (4.8-10.8)
--- OUTSIDE RECORDS SUMMARY | 2022-02-04 11:41 | XMS_ITS | Continuity of Care Document ---
:1950 Author Organization [facility] nter Address [address] [place] [address]- Care Team Providers Name Role Phone Nahomy DISLA Tam Webb Primary Care Physician [place] [facility] [place]18[place] - 09/18/[address] [address]- Discharge Disposition: A-D/C Home Attending Physician: Marky Pereira MD Admitting Physician: Marky Pereira MD Referring Physician: Marky Pereira MD Allergies, Adverse Reactions, Alerts Substance Reaction Severity Status Percocet nausea/vomiting/GI distress Acti ve Medications amitriptyline-chlordiazepoxide 12.5 mg-5 mg oral tablet 2 tablet, By Mouth, Daily at bedtime, 0 Refills, Maintenance, 05/16/14 10:29:44, Tablet Start Date: 05/16/14 Status: OrderedAvapro 150 mg oral tablet 1 tablet = 150 mg, By Mouth, Daily, 0 Refills, Maintenance Start Date: 09/15/09 Status: Orderedcitalopram 20 mg oral tablet 1 tablet = 20 mg, By Mouth, Daily, 0 Refills, Maintenance Start Date: 09/15/09 Status: Orderedclonazepam 0.5 mg oral tablet 1 tablet, By Mouth, 2 times a day, 0 Refills, Maintenance, 09/15/09 10:40:27, Tablet Start Date: 09/15/09 Status: OrderedCosopt ophthalmic solution 2, drops, Eyes, Both, 0 Refills Start Date: 10/09/04 Status: Orderedglyburide 5 mg oral tablet 2 tablet = 10 mg, By Mouth, 2 times a day, 0 Refills, Maintenance, 09/15/09 10:40:54 Start Date: 09/15/09 Status: OrderedLantus Solostar Pen 100 units/mL subcutaneous solution = 35 units, Subcutaneous Injection, 2 times a day, # 10 mL, 0 Refills, Maintenance, 05/23/14 11:35:03, Solution, 35 units Subcutaneous Injection 2 times a day,x30 days Start Date: 05/23/14 Stop Date: 06/22/14 Status: OrderedLasix 40 mg oral tablet 1 tablet = 40 mg, By Mouth, 2 times a day, # 30 tablet, 0 Refills, Maintenance, 05/16/14 10:25:28, Tablet Start Date: 05/16/14 Status: Orderedlevothyroxine 0.112 mg oral tablet 1 tablet = 112 mcg, By Mouth, Daily, # 30 tablet, 0 Refills, Maintenance, 05/16/14 10:16:31, Tablet Start Date: 05/16/14 Status: OrderedLumigan 0.03% ophthalmic solution 1 drops, Eyes, Both, Daily before dinner, 0 Refills, Maintenance Start Date: 09/15/09 Status: OrderedOnglyza 2.5 mg oral tablet 1 tablet = 2.5 mg, By Mouth, Daily, # 30 tablet, 0 Refills, Maintenance, 05/16/14 10:26:31, Tablet Start Date: 05/16/14 Status: Orderedsimvastatin 20 mg oral tablet 1 tablet = 20 mg, By Mouth, Daily at bedtime, 0 Refills, Maintenance Start Date: 09/15/09 Status: Ordered Problem List Condition Effective Dates Status Health Status Informant Healing delayed surgical 01/08/05 Active wound(Confirmed)(Stable) Morbid obesity(Confirmed) Active Vital Signs Most recent to oldest 1 2 3 [Reference Range]: Oxygen Saturation [94-100 %] 98 % 99 % 100 % (09/18/20 11:30 AM) (09/18/20 11:15 AM) (09/18/20 1 1:10 AM) Pulse Rate [55-90 bpm] 86 bpm (09/18/20 9:15 AM) Blood Pressure [90-138/55-84 157/83 mm Hg 176/71 mm Hg 155 /72 mm Hg mm Hg] *H* *H* *H* (09/18/20 11:15 AM) (09/18/20 11:10 AM) (09/18/20 1 1:05 AM) Respiratory Rate [16-30 23 br/min 18 br/min 19 br/mi n br/min] (09/18/20 11:30 AM) (09/18/20 11:15 AM) (09/18/20 1 1:10 AM) Temperature [96.8-100.4 97.2 DegF 98.4 DegF DegF] (09/18/20 11:04 AM) (09/18/20 9:15 AM) Liters per Minute 6 L/min (09/18/20 11:05 AM) Mode of Delivery (Oxygen) Room air Room air Simple face mask (09/18/20 11:30 AM) (09/18/20 11:10 AM) (09/18/20 1 1:05 AM) Blood pressure sites Arm, left Arm, left (09/18/20 11:05 AM) (09/18/20 9:15 AM) Temperature Route Temporal Temporal (09/18/20 11:04 AM) (09/18/20 9:15 AM) Dry Weight 135 kg (09/18/20 9:15 AM) Dry Weight Obtained Via Standing scale (09/18/20 9:15 AM) Social History Social History Type Response Smoking Status Never smoker; Tobacco user i n household: No entered on: 05/16/14 Sex
--- OUTSIDE RECORDS SUMMARY | 2022-02-04 11:41 | XMS_ITS | Continuity of Care Document ---
:1950 Author Organization [facility] nter Address [address] [place] [address]- Care Team Providers Name Role Phone Nahomy DISLA Tam Webb Primary Care Physician [place] [facility] [place] [facility] [place] 02/19/21 - 02/19/[address] [address]- Discharge Disposition: A-D/C Home Attending Physician: Marky [...] surgical 01/08/05 Active wound(Confirmed)(Stable) Morbid obesity(Confirmed) Active Severe obesity(Confirmed) Active Vital Signs Most recent to oldest 1 2 3 [Reference Range]: Height 160 cm (02/19/21 10:30 AM) Weight 140.4 kg (02/19/21 10:30 AM) Oxygen Saturation [94-100 100 % 100 % 97 % %] (02/19/21 12:45 PM) (02/19/21 12:40 PM) ( 10:30 AM) Pulse Rate [55-90 bpm] 85 bpm (02/19/21 10:30 AM) Body Mass Index 54.84 [18.5-24.99] *>HHI* (02/19/21 10:30 AM) Blood Pressure 161/71 mm Hg 101/81 mm Hg 149/61 mm Hg [90-138/55-84 mm Hg] *H* (02/19/21 12:40 PM) *H* (02/19/21 12:45 PM) (02/19/21 10 :30 AM) Respiratory Rate [16-30 16 br/min 12 br/min 16 br/mi n br/min] (02/19/21 12:45 PM) *L* (02/19/21 10 :30 AM) (02/19/21 12:40 PM) Temperature [96.8-100.4 97.3 DegF 97.8 DegF DegF] (02/19/21 12:40 PM) (02/19/21 10:30 AM) Liters per Minute 4 L/min (02/19/21 12:40 PM) Mode of Delivery (Oxygen) Room air Simple face mask Room air (02/19/21 12:45 PM) (02/19/21 12:40 PM) ( 1 10:30 AM) Blood pressure sites Arm, right Arm, right (02/19/21 12:40 PM) (02/19/21 10:30 AM) Temperature Route Temporal Temporal (02/19/21 12:40 PM) (02/19/21 10:30 AM) Dry Weight 140.4 kg (02/19/21 10:30 AM) Weight Obtained Via Standing scale (02/19/21 10:30 AM) Dry Weight Obtained Via Pediatric scale (02/19/21 10:30 AM) Social History Social History Type Response Smoking Status Never smoker; Tobacco user i n household: No entered on: 05/16/14 Sex
--- OUTSIDE RECORDS SUMMARY | 2022-02-04 11:41 | XMS_ITS | Continuity of Care Document ---
:1950 Author Organization [facility] nter Address [address] [place] [address]- Care Team Providers Name Role Phone Nahomy DISLA Tam Webb Primary Care Physician Encounter [facility] [place] Date(s): 10/30/20 - 10/30/[address] [address]- Discharge Disposition: A-D/C Home Attending Physician: Marky [...] Most recent to oldest 1 2 3 4 [Reference Range]: Oxygen Saturation 100 % 99 % 96 % [94-100 %] (10/30/20 1:45 PM) (10/30/20 1:20 PM) (10/30/20 11:48 AM) Pulse Rate [55-90 bpm] 84 bpm (10/30/20 11:48 AM) Blood Pressure 139/91 mm Hg 138/90 mm Hg 145/73 mm Hg [90-138/55-84 mm Hg] *H* (10/30/20 1:45 PM) *H* (10/30/20 1:50 PM) (10/30/20 1:20 PM) Respiratory Rate 16 br/min 15 br/min 15 br/min [16-30 br/min] (10/30/20 1:55 PM) *L* *L* (10/30/20 1:50 PM) (10/30/20 1:45 PM) Temperature 97.4 DegF [96.8-100.4 DegF] (10/30/20 11:48 AM) Mode of Delivery Room air Room air Room air Room air (Oxygen) (10/30/20 1:55 PM) (10/30/20 1:55 PM) (10/30/20 1:50 PM) (10/30/20 1:50 PM) Blood pressure sites Arm, right (10/30/20 11:48 AM) Temperature Route Temporal (10/30/20 11:48 AM) Dry Weight 137.4 kg (10/30/20 11:48 AM) Dry Weight Obtained Standing scale Via (10/30/20 11:48 AM) Social History Social History Type Response Smoking Status Never smoker; Tobacco user i n household: No entered on: 05/16/14 Sex
--- OUTSIDE RECORDS SUMMARY | 2022-02-04 11:42 | XMS_ITS ---
:1950 Author Care Team Providers Name Role Phone Tam Coreat Primary Care Provider Unavailable Allergies Code Code System Name Reaction Severity Status Onset Cordell Inhibitors Cough ? Active ? Medications Name Status Start Date Stop Date ? ? amitriptyline 25 mg tablet Active ? Not a vailable TAKE 1 TABLET BY MOUTH AT BEDTIME amitriptyline 50 mg tablet Active ? Not a vailable TAKE 1 TABLET BY MOUTH EVERY DAY amitriptyline hcl 25 mg tabs Completed ? 03/2020 amitriptyline hydrochloride 25 mg tabs Completed ? 11/14/2019 amitriptyline hydrochloride 25 mg tabs Completed ? 11/14/2019 amlodipine 10 mg tablet Active ? Not avai lable TAKE 1 TABLET BY MOUTH DAILY aspirin 325 mg tablet Active ? Not availa ble Take 1 tablet every day by oral route. BD Ada 2nd Gen Pen Needle 32 gauge x 5/32 Active ? Not available DIRECTED TO INJECT INSULIN UP TO 6 TIMES DAILY Boostrix Tdap 2.5 Lf unit-8 mcg-5 Lf/0.5 mL Completed ? 02/06/2020 intramuscular syringe [id number] 50 mg-325 mg-40 mg tablet Acti ve ? Not available TAKE 1 TABLET BY MOUTH FOUR TIMES DAILY FOR 7 DAYS NEEDED chlordiazepoxide 10 mg capsule Active ? N ot available TAKE 1 CAPSULE BY MOUTH EVERY DAY AT BEDTIME chlordiazepoxide hcl 10 mg caps Completed ? 11/14/2019 chlordiazepoxide hcl 10 mg caps Completed ? 11/14/2019 citalopram 20 mg tablet Active ? Not avai lable TAKE 1 TABLET BY MOUTH EVERY DAY citalopram 40 mg tablet Completed ? 12/03/19 18 Take 1 tablet every day by oral route. citalopram hydrobromide 20 mg tabs Completed ? 11/14/2019 citalopram hydrobromide 20 mg tabs Completed ? 11/14/2019 clonazepam 0.5 mg tabs Completed ? 0 clonazepam 0.5 mg tablet Active ? Not lamonte ilable TAKE 1 TABLET BY MOUTH TWICE DAILY NEEDED clonazepam 0.5 mg tabs Completed ? 0 dexamethasone 6 mg tablet Active ? Not av ailable TAKE 1 TABLET BY MOUTH DAILY dorzolamide 22.3 mg-timolol 6.8 mg/mL eye drops Active ? Not available INSTILL 1 DROP IN RIGHT EYE TWICE DAILY durezol 0.05 % emul Completed ? 11/19/2019 Durezol 0.05 % eye drops Active ? Not lamonte ilable INSTILL 1 DROP IN RIGHT EYE FOUR TIMES DAILY Fluad Quad (65yr up)(PF) 60 mcg (15 mcg x 4)/ 0.5mL IM syringe Completed ? 02/06/2020 ADM 0.5ML IM UTD freestyle mis lancets Completed ? 08/29/2020 freestyle duane lite Active ? Not available FreeStyle Lite Strips Active ? Not availa ble TEST THREE TIMES DAILY furosemide 40 mg tablet Active ? Not avai lable TAKE 2 TABLETS BY MOUTH EVERY DAY furosemide 40 mg tabs Completed ? 11/14/2019 gatifloxacin 0.5 % eye drops Active ? Not available INSTILL 1 DROP IN RIGHT EYE FOUR TIMES DAILY glipizide 10 mg tabs Completed ? 11/14/2019 glipizide 10 mg tablet Active ? Not avail able TAKE 1 TABLET BY MOUTH TWICE DAILY glipizide 10 mg tabs Completed ? 11/14/2019 glipizide 5 mg tablet Completed ? 01/29/2019 Take 2 tablets twice a day by oral route for 30 days. glipizide 5 mg tabs Completed ? 11/14/2019 humalog kwikpen 100 unit/ml sopn Completed ? 11/19/2019 humalog mix inj 75/25kwp Completed ? 020 hydrocodone 5 mg-acetaminophen 325 mg tablet Active ? Not available TAKE 1 TABLET BY MOUTH EVERY 4 TO 6 HOURS NEEDED FOR EXTREME PAIN hydroxychloroquine 200 mg tablet Active ? Not available TAKE 1 TABLET BY MOUTH TWICE DAILY insulin lispro protamine-lispro 100 unit/mL (75-25) subcutaneous pen Active ? Not available ADMINISTER 7 TO 15 UNITS UNDER THE SKIN BEFORE MEALS. MAXIMUM DAILY DOSAGE OF 50 UNITS PER DAY irbesartan 150 mg tablet Completed ? 018 1tab daily januvia 100 mg tabs Completed ? 11/14/2019 Januvia 100 mg tablet Active ? Not availa ble TAKE 1 TABLET BY MOUTH EVERY DAY ketorolac 0.5 % eye drops Active ? Not av ailable lantus solostar 100 unit/ml sopn Completed ? 11/14/2019 lantus solostar 100 unit/ml sopn Completed ? 11/14/2019 Lantus Solostar U-100 Insulin Completed ? 38 units twice daily Lantus Solostar U-100 Insulin 100 unit/mL (3 mL) subcutaneous pe n Active ? Not available ADMINISTER 70 UNITS UNDER THE SKIN EVERY EVENING latanoprost 0.005 % eye drops Active ? No t available INSTILL 1 DROP IN BOTH EYES EVERY NIGHT latanoprost 0.005 % soln Completed ? 020 levothyroxine Completed ? 11/14/2019 137 mcg 1 po daily levothyroxine 125 mcg tablet Completed ? TAKE 1 TABLE BY MOUTH ONCE A DAY levothyroxine 137 mcg tablet Completed ? 04/2020 levothyroxine 150 mcg tablet Active ? Not available TAKE 1 TABLET BY MOUTH EVERY DAY levothyroxine 175 mcg tablet Active ? Not available TAKE 1 TABLET BY MOUTH EVERY DAY levothyroxine sodium 137 mcg tabs Completed ? 11/14/2019 moxifloxacin 0.5 % eye drops Active ? Not available INSTILL 1 DROP IN RIGHT EYE FOUR TIMES DAILY Multi Vitamin Active ? Not available ondansetron HCl 4 mg tablet Active ? Not available TAKE 2 TABLETS BY MOUTH TWICE DAILY FOR 14 DAYS NEEDED Onglyza 2.5 mg tablet Active ? Not availa ble onglyza 2.5 mg tabs Completed ? 11/19/2019 penicillin V potassium 250 mg tablet Active ? Not available TAKE 1 TABLET BY MOUTH TWICE DAILY penicillin v potassium 250 mg tabs Completed ? 11/14/2019 prednisolone acetate 1 % eye drops,suspension Active ? Not available SHAKE LIQUID AND INSTILL 1 DROP IN RIGHT EYE FOUR TIMES DAILY prednisolone acetate 1 % susp Completed ? Rocklatan 0.02 %-0.005 % eye drops Active ? Not available INSTILL 1 DROP IN LEFT EYE EVERY NIGHT senna 8.6 mg tablet Active ? Not availabl e Take 2 tablets every day by oral route as needed. simbrinza anibal 1-0.2% Completed ? 11/14/2019 Simbrinza 1 %-0.2 % eye drops,suspension Active ? Not available simvastatin 20 mg tabs Completed ? 0 simvastatin 20 mg tablet Active ? Not lamonte ilable TAKE 1 TABLET BY MOUTH EVERY DAY AT BEDTIME simvastatin 20 mg tabs Completed ? 0 sumatriptan 100 mg tablet Active ? Not av ailable sumatriptan 50 mg tablet Completed ? 022 timolol maleate 0.5 % soln Completed ? 11/13 timolol maleate 0.5 % eye drops Active ? Not available INSTILL 1 DROP INTO RIGHT EYE TWICE DAILY timolol maleate 0.5 % soln Completed ? 11/18 Tylenol 325 mg capsule Active ? Not avail able Take 2 mg by oral route as needed. Vitamin C Active ? Not available 500mg once a day Problems Name Status Onset Date Source ? Hypothyroidism Active 08/19/2017 ? Diabetes Mellitus Unknown 08/19/2017 ? Hypercholesterolemia Active 08/19/2017 ? Morbid Obesity Active 08/19/2017 ? Anxiety Active 08/19/2017 ? Depressive Disorder Active 08/19/2017 ? Mitral Valve Stenosis Active 08/19/2017 ? Venous Stasis Active 08/19/2017 ? Chronic Kidney Disease Stage 2 Active 08/19/2017 ? Insulin Treated Type 2 Diabetes Mellitus Active 019 ? Lymphedema Active 01/26/2019 ? Normal Pressure Hydrocephalus Active 11/19/2019 ? Migraine without Aura Active 11/19/2019 ? Hypoglycemia Active 10/26/2021 ? Chronic Lymphoid Leukemia, Disease Active 01/29/2022 ? Procedures Date Name Performed by ? 09/02/2017 Cataract Surgery Information not avai lable 04/04/1990 [employer] Shunt Placement Information not avai lable ? Tubal Ligation Information not avai lable ? Cholecystectomy Information not avai lable ? Appendectomy Information not avai lable ? Total Hysterectomy Information not avai lable Results Lab Results Date Name Specimen Result Interpretation Description Value Range Status Address ? 04/21/2021 HbA1C (Hemoglobin ? No observation ? ? ? [facility] a1C), Blood recorded. Ce nter (Medical Records): [address] [facility] 05/28/2020 CBC W/ Auto Diff ? No observation ? ? ? [facility] recorded. [facility] (Medical Records): [address] [facility] 05/28/2020 HbA1C (Hemoglobin ? No observation ? ? ? [facility] a1C), Blood recorded. nt (Medical Records): [address], [place] 05/28/2020 TSH + Free T4, ? No observation ? ? ? [facility] Serum recorded. [place] (Medical Records): [address], [place] 05/28/2020 CMP, Serum or ? No observation ? ? ? [facility] Plasma recorded. [place] (Medical Records): [address], [place] 01/22/2020 LDL, Serum ? Ldl 90 ? ? 01/22/2020 HbA1C (Hemoglobin ? A1C 7.1 ? ? a1C), Blood 11/16/2019 LDL, Serum ? Ldl 109 ? ? 11/16/2019 HbA1C (Hemoglobin ? A1C 9.1 ? ? a1C), Blood 11/12/2019 HbA1C (Hemoglobin ? No observation ? ? ? [facility] a1C), Blood recorded. [facility] : [address], [place] 11/12/2019 TSH + Free T4, ? No observation ? ? ? [facility] Serum recorded. [place] [facility] : [address], [place] 11/12/2019 Lipid Panel, Blood ? No observation ? ? ? [facility] recorded. [place] [facility] : [address], [place] 11/12/2019 CMP, Serum or ? No observation ? ? ? [facility] Plasma recorded. [place] [facility] : [address], [place] 02/27/2019 Fecal Occult ? No observation ? ? ? Blood, Stool recorded. 01/26/2019 Microalbumin, ? No observation ? ? ? [facility] Urine recorded. [place] [facility] : [address], [place] 01/26/2019 TSH + Free T4, ? No observation ? ? ? [facility] Serum recorded. [place] [facility] : [address], [place] 01/26/2019 Lipid Panel, Serum ? No observation ? ? ? [facility] recorded. [place] [facility] : [address], [place] 01/26/2019 Glycohemoglobin, ? No observation ? ? ? [facility] Total, Blood recorded. [facility] Laboratory : [address], [place] 01/26/2019 CMP, Serum or ? No observation ? ? ? [facility] Plasma recorded. [facility] Laboratory : [address], [place] 01/26/2019 LDL, Serum ? Ldl 88 ? ? 12/10/2017 LDL, Serum ? Ldl 90 ? ? 12/10/2017 HbA1C (Hemoglobin ? A1C 7.7 ? ? a1C), Blood 11/04/2017 CBC W/ Diff ? No observation ? ? ? [facility] recorded. [facility] Laboratory : [address], [place] 09/19/2017 Cbc ? No observation ? ? ? [facility] recorded. [facility] Laboratory : [address], [place] 09/19/2017 CMP, Serum or ? No observation ? ? ? [facility] Plasma recorded. [facility] Laboratory : [address], [place] 08/19/2017 Microalbumin/creat ? No observation ? ? ? [facility] inine, Ratio recorded. C enter Panel, Urine Labo ratory: [address], [place] 08/19/2017 Cbc ? No observation ? ? ? [facility] recorded. [facility] Laboratory : [address], [place] 08/19/2017 Glycohemoglobin, ? No observation ? ? ? [facility] Total, Blood recorded. C enter Laboratory : [address], [place] 08/19/2017 Lipid Panel, Serum ? No observation ? ? ? [facility] recorded. [facility] Laboratory : [address], [place] 08/19/2017 CMP, Serum or ? No observation ? ? ? [facility] Plasma recorded. [facility] Laboratory : [address], [place] 05/13/2017 HbA1C (Hemoglobin ? A1C 10.7 ? ? a1C), Blood Past Encounters 10/26/2021 Hypoglycemia Renae Russell PA: [address] [place] [address], Ph. 04/29/2021 Diabetes Mellitus; Morbid Obesity; Depre ssive Disorder; Stasis Dermatitis and Venous Ulcer of Lower Extremity Due to Chronic Peripheral Venous Hypertension; Insulin Treated Type 2 Diabetes Mellitus; Randy janet without Aura; Normal Pressure Hydr ocephalus; Chronic Kidney Disease Stage 2; Pre-existing Type 2 Diabetes Mellitus; Hypothyroidism; Renewal of Prescription Tam Corea, DO: [address] [facility] [address], Ph. 09/29/2020 Pre-surgery Evaluation Tam Corea [facility] [address] [facility] [place] [address], Ph. 08/29/2020 Glaucoma; Insulin Treated Type 2 Diabete s Mellitus; Pre-surgery Evaluation; Cluster Headache [facility]ae Russell [facility] [address] [facility] [place] [address], Ph. Social History Tobacco Smoking Status Former Smoker Vaccine List Vaccine Type COVID-19, mRNA, LNP-S, PF, 100 mcg/0.5 m L dose (Moderna) 06/21/2020 07/21/2020 influenza, injectable, quadrivalent 01/22/2020 pneumococcal conjugate PCV 13 02/08/2017 pneumococcal polysaccharide PPV23 04/19/2018 pneumococcal, unspecified formulation 01/03/2008 Tdap 01/22/2020 tetanus toxoid, unspecified formulation 09/03/2011 Plan of Care Reminders Provider Appointments None recorded. ? ? Lab None recorded. ? ? Referral None recorded. ? ? Procedures None recorded. ? ? Surgeries None recorded. ? ? Imaging None recorded. ? ? Vitals 09/29/2020 11:00AM FOLLOW UP 15 Height Blood Pressure 5 ft 2.5 in 126/74 mm[Hg] 08/29/2020 10:00AM Pre-Op Height Weight BMI Blood Pressure 5 ft 2.5 in 130/70 mm[Hg] 05/28/2020 11:15AM FOLLOW UP 15 Height Weight BMI Blood Pressure 5 ft 2.5 in 303.5 lbs 54.6 kg/m2 138/70 mm[Hg] 02/06/2020 01:30PM FOLLOW UP 15 Height Blood Pressure 5 ft 2.5 in 150/70 mm[Hg] 11/19/2019 02:15PM FOLLOW UP 30 Height Weight BMI Blood Pressure 5 ft 2.5 in 130/82 mm[Hg] 01/26/2019 11:45AM FOLLOW UP 15 Weight Blood Pressure 276.5 lbs 150/80 mm[Hg] 01/02/2018 11:30AM Pre-Op Height Weight BMI Blood Pressure 5 ft 2.25 in 288.3 lbs 52.3 kg/m2 148/80 mm[Hg] 12/02/2017 10:30AM FOLLOW UP 30 Height Weight BMI Blood Pressure 5 ft 2.25 in 295.6 lbs 53.6 kg/m2 114/76 mm[Hg] 09/19/2017 10:15AM ANNUAL EXAM Height Weight BMI Blood Pressure 5 ft 2.25 in 329 lbs 59.7 kg/m2 (1) 148/76 mm[H g] (2) 140/76 mm[Hg ] 08/19/2017 11:45AM Pre-Op Height Weight BMI Blood Pressure 5 ft 2.25 in 327.7 lbs 59.5 kg/m2 122/76 mm[Hg]
[2022-02-04] MEDS: Albuterol Sulfate (0.083%) 2.5 MG/3 ML VIAL.NEB INHALE ×2 (11:47→16:00)
[2022-02-04 11:48] VITALS: PULSE 85; RESP 18; O2SAT 96
[2022-02-04 11:48] LABS: Lactic Acid 0.8 mmol/L (0.5-2.0)
[2022-02-04] MEDS: methylPREDNISolone Sod Succ 125 MG/2 ML VIAL 60 MG IVPUSH (11:51)
[2022-02-04] MEDS: Furosemide 40 MG/4 ML VIAL IVPUSH (11:51)
[2022-02-04 11:57] LABS: B Type Natriuretic Peptide 924 pg/mL (<100); Troponin-I High Sensitivity 12.7 ng/L (<3.5-17.0)
--- NOTE | 2022-02-04 12:12 | PC.NURSE ---
Pt presenting from rehab, difficulty breathing. This RN to bedside with [employer] to start IV and obtain lab work. Pt initial oxygen at 83% on room air, placed on 3L now at 94-96%. Pt states relief with breathing at this time, feeling more comfortable. Niece at bedside.
[2022-02-04 12:16] LABS: Anion Gap 19 (12-20); Blood Urea Nitrogen 40 mg/dL (9-16); Calcium 8.7 mg/dL (8.4-10.2); Carbon Dioxide 25 mmol/L (22-29); Chloride 95 mmol/L (96-108); Creatinine Clr Calc Pharmacy 50.7; Estimated Glomerular Filt Rate 40; Glucose Random 310 mg/dL (60-115); Potassium 4.9 mmol/L (3.3-5.1); Sodium 134 mmol/L (135-145)
[2022-02-04 12:21] VITALS: BP 116/43; PULSE 83; RESP 24; TEMP 36.8; O2SAT 94
[2022-02-04 12:23] LABS: Influenza A PCR NEGATIVE (Negative); Influenza B PCR NEGATIVE (Negative); Resp Syncy Virus RNA Qual PCR POSITIVE (Negative); SARS COV2 PCR INHOUSE NEGATIVE (Negative)
[2022-02-04] MEDS: levoFLOXacin/D5W 500 MG/100 ML PIGGYBACK 100 MG IV (13:08)
[2022-02-04 13:11] VITALS: BP 133/40; PULSE 79; RESP 20; O2SAT 93
[2022-02-04 14:42] VITALS: BP 177/66; PULSE 82; RESP 18; TEMP 35.9; O2SAT 100
[2022-02-04 16:00] VITALS: PULSE 81; RESP 18; O2SAT 95
== END 2022-02-04 19:00 | disposition skilled nursing facility (03) ==
PROVIDERS: Nurse Practitioner Family; Emergency Provider Emergency Medicine; PCP Internal Medicine
DX: J44.1 Chronic obstructive pulmonary disease with (acute) exacerbation (principal); B97.4 Respiratory syncytial virus as the cause of diseases classified elsewhere; E11.22 Type 2 diabetes mellitus with diabetic chronic kidney disease; I13.0 Hypertensive heart and chronic kidney disease with heart failure and stage 1 through stage 4 chronic kidney disease, or unspecified chronic kidney disease; N18.9 Chronic kidney disease, unspecified; I50.9 Heart failure, unspecified; R06.02 Shortness of breath; E78.5 Hyperlipidemia, unspecified; Z99.81 Dependence on supplemental oxygen; Z79.82 Long term (current) use of aspirin; Z79.4 Long term (current) use of insulin; Z79.02 Long term (current) use of antithrombotics/antiplatelets; Z79.899 Other long term (current) drug therapy; Z20.822 Contact with and (suspected) exposure to COVID-19
CPT/HCPCS: 0241U; 36415; 71046; 80048; 83605; 83880; 84484; 85025; 87040; 93005; 94640; 96365; 96375; 99284; J1940; J1956; J2930

== ENCOUNTER → 2022-02-15 13:41 | Outpatient (BNV) | payer MEDICARE, OTHER, MEDICAID, SELFPAY | PROVIDERS: Visit Provider Internal Medicine | DX: C91.10 Chronic lymphocytic leukemia of B-cell type not having achieved remission (principal) | CPT/HCPCS: 99214 ==

== ENCOUNTER 2022-02-15 18:43 | Observation (INO) | payer OTHER, SELFPAY ==
[2022-02-15 18:59] VITALS: BP 124/80; PULSE 70; RESP 16; TEMP 37; O2SAT 96; BMI 28.3
--- NOTE | 2022-02-15 19:16 | ED.RECABL ---
HPI - Recheck/Abnormal Lab/Rx General Chief Complaint: Recheck/Abnormal Lab/Rx Stated Complaint: abnormal labs Time Seen by Provider: 02/15/22 19:15 Source: patient Mode of arrival: EMS Limitations: no limitations History of Present Illness HPI narrative: Patient is 71 years old with history of COPD on home oxygen congestive heart failure, diabetes mellitus type 2, CKD, LEO hyperlipidemia, hypertension, hypothyroidism, peripheral vascular disease just admitted for acute respiratory failure status post intubation with diagnosis of Klebsiella pneumonia discharged on 12/23/21 [facility] from [facility] for elevated potassium level and BUN patient patient is on furosemide 40 mg twice a day BUN elevated to 76 and creatinine 1.82 with potassium of 5.6 bicarb of 30 patient denies any significant complaint Related Data Home Medications Medication Instructions Recorded Confirmed aspirin 325 mg tablet 325 mg PO DAILY 10/08/21 11/20/21 brinzolamide 1 %-brimonidine 0.2 % 1 drp ophthalmic-Right BID 10/08/21 11/20/21 eye drops,suspension (Simbrinza) chlordiazepoxide HCl 10 mg capsule 10 mg PO BEDTIME 10/08/21 11/20/21 citalopram 20 mg tablet 20 mg PO DAILY 10/08/21 11/20/21 docusate sodium 100 mg tablet 100 mg PO DAILY 10/08/21 11/20/21 furosemide 40 mg tablet 40 tab PO BID@0900,1800 10/08/21 11/20/21 hydroxychloroquine 200 mg tablet 200 mg PO BID 10/08/21 11/20/21 insulin lispro protamine-lispro 7 - 15 ea subcut TIDAC 10/08/21 11/20/21 100 unit/mL (75-25) subcutaneous pen levothyroxine 175 mcg tablet 175 mcg PO DAILY@0600 10/08/21 11/20/21 multivitamin 1 tab PO DAILY 10/08/21 11/20/21 netarsudil 0.02 %-latanoprost 1 drp ophthalmic (eye) BEDTIME 10/08/21 11/20/21 0.005 % eye drops (Rocklatan) simvastatin 20 mg tablet 20 mg PO BEDTIME 10/08/21 11/20/21 sitagliptin 100 mg tablet (Januvia) 100 mg PO DAILY 10/08/21 11/20/21 latanoprost 0.005 % eye drops 1 drp ophthalmic (eye) BEDTIME 11/20/21 11/20/21 prednisolone ophthalmic-Right 1XD 12/07/21 timolol drp ophthalmic (eye) 2XD 12/07/21 Previous Rx's Medication Instructions Recorded amlodipine 10 mg tablet 10 mg PO DAILY #30 tabs 10/16/21 hydralazine 50 mg tablet 50 mg PO TID 30 days #90 tabs 12/23/21 insulin glargine 100 unit/mL (3 30 unit (0.3 mL) subcut BEDTIME 12/23/21 mL) subcutaneous pen (Lantus #15 mL Solostar U-100 Insulin) metoprolol succinate 100 mg 100 mg PO DAILY 30 days #30 tabs 12/23/21 tablet,extended release 24 hr nystatin 100,000 unit/gram topical 1 appl topical BID 7 days #30 grams 12/23/21 powder azithromycin 500 mg tablet 500 mg PO DAILY 3 days #3 tabs 02/04/22 prednisone 20 mg tablet 40 mg PO DAILY #10 tabs 02/04/22 Allergies Allergy/AdvReac Type Severity Reaction Status Date / Time oxycodone [From Percocet] Allergy Intermediate Rash Verified 02/15/22 18:55 Review of Systems Review of Systems: Yes all other systems are reviewed and are negative PMFSH Past Medical History Medical History CKD (chronic kidney disease) Congestive heart failure COVID Diabetes mellitus with insulin therapy Essential hypertension HLD (hyperlipidemia) HTN (hypertension) Hypothyroidism Infection with ESBL Klebsiella oxytoca Klebsiella pneumonia Lower extremity edema Lymphadenopathy, mediastinal Migraine Obesity Pleural effusion Pseudotumor cerebri PVD (peripheral vascular disease) Suspected deep tissue injury Surgical History H/O cataract extraction H/O hysterectomy for benign disease Hx of cholecystectomy S/P appendectomy Family History Family History Mother Heart attack, Onset Age: 92 Father Heart attack, Onset Age: 66 Other Diabetes Social History Social History Housing: Assisted Living Facility Alcohol intake: never Patient Tobacco Use Status: Never used Tobacco Advance Directives: Yes Advance Directives on File: Yes Advance Directives Date on File: 09/26/20 service: No Current occupational status: disabled Physical Exam Vital Signs: Vital Signs: Last Vital Signs Temp 97.9 F 02/15/22 23:17 Pulse 66 02/15/22 23:17 Resp 18 02/15/22 23:17 BP 123/46 L 02/15/22 23:17 Pulse Ox 100 02/15/22 23:17 O2 Del Method 02/15/22 23:17 O2 Flow Rate 2 02/15/22 23:17 BMI result Body Mass Index 28.3 Appearance: Alert. Oriented X3. No acute distress. Obese Eyes: PERRLA, No Nystagmus ENT: Pharynx normal. Oral Mucosa moist Neck: Normal inspection. Neck supple. CVS: Normal heart rate and rhythm. Pulses normal. Respiratory: No respiratory distress. Equal air entry bilateral, no wheezing/rales/rhonchi Abdomen: Soft and nontender. Bowel sounds are present, no mass palpable, no CVA tenderness Skin: Skin warm and dry. Normal skin color. Normal skin turgor. Extremities: No lower extremity edema. No calf tenderness chronic ischemic changes in lower extremity Neuro: Oriented X 3. No motor deficit. No sensory deficit.No cerebellar signs , cranial nerves II-XII intact Medications Administered Discontinued Medications Generic Name Dose Route Start Last Admin Trade Name Freq PRN Reason Stop Dose Admin Sodium Chloride 1,000 mls @ 999 mls/hr 02/15/22 19:18 02/15/22 21:01 Ns IV 02/15/22 20:18 Infused .Q1H1M ONE Infusion Calcium Gluconate 2 gm in 100 mls @ 200 mls/hr 02/15/22 19:18 02/15/22 20:30 Calcium Gluconate IV 02/15/22 19:47 Infused ONCE ONE Infusion Sodium Zirconium Cyclosilicate 10 gm 02/15/22 19:18 02/15/22 20:00 Sodium Zirconium Cyclosilicate 10 Gm Powd.Pack PO 02/15/22 19:19 10 gm ONCE ONE Administration MDM - Recheck/Abnormal Lab/Rx MDM Narrative Medical decision making narrative: Patient with LEO with history of CKD in the past etiology not very clear but patient is on furosemide likely the cause. Patient received 1 L of normal saline repeat potassium is 5.4 and creatinine is 1.92 with baseline less than 1. Will admit patient for LEO patient received IV fluids, Lokelma, calcium gluconate Lab Data Attestation: I reviewed the patient's lab results. Result diagrams: 02/15/22 23:46 Labs: Lab Results 02/15/22 Range/Units 23:46 Sodium 135 (135-145) mmol/L Potassium 5.4 H (3.3-5.1) mmol/L Chloride 99 (96-108) mmol/L Carbon Dioxide 24 (22-29) mmol/L Anion Gap 17 (12-20) BUN 72 H D (9-16) mg/dL Creatinine 1.92 H (0.5-1.4) mg/dL Estim Creat Clear Calc 26.0 Estimated GFR 26 Random Glucose 225 H (60-115) mg/dL Calcium 9.0 (8.4-10.2) mg/dL ECG Data Attestation: I personally reviewed and interpreted this ECG as follows: Interpretation: Normal sinus rhythm heart rate 66 beats per minute no acute ST-T changes no acute ischemia Discharge Plan Discharge Clinical Impression: LEO (acute kidney injury), Acute hyperkalemia Patient Disposition: Admitted As Inpatient
[2022-02-15 20:00] VITALS: BP 126/39; PULSE 67; RESP 15; TEMP 36.5; O2SAT 96
[2022-02-15] MEDS: Calcium Gluconate/NaCl,Iso-Osm 2 GM/100 ML PLAST..BAG IV (20:00)
[2022-02-15] MEDS: 0.9 % Sodium Chloride 1,000 ML 999 ML IV (20:00)
[2022-02-15] MEDS: Sodium Zirconium Cyclosilicate 10 GM POWD.PACK PO (20:00)
--- OUTSIDE RECORDS SUMMARY | 2022-02-15 20:18 | XMS_ITS ---
[...] Lf/0.5 mL Completed ? 02/06/2020 intramuscular syringe [id number] 50 mg-325 mg-40 mg tablet Acti ve [...] Cataract Surgery Information not avai lable 04/04/1990 [employer]VIEW TRAIN[employer] Shunt Placement Information not avai lable ? Tubal Ligation Information not avai lable ? Cholecystectomy Information not avai lable ? Appendectomy Information not avai lable ? Total Hysterectomy Information not avai lable Results Lab Results Date Name Specimen Result Interpretation Description Value Range Status Address ? 04/21/2021 HbA1C (Hemoglobin ? No observation ? ? ? [facility] a1C), Blood recorded. Ce nter (Medical Records): [address] [facility] 05/28/2020 CBC W/ Auto Diff ? No observation ? ? ? [facility] recorded. Center (Medical Records): [address] [facility] 05/28/2020 HbA1C (Hemoglobin ? No observation ? ? ? [facility] a1C), Blood recorded. nt (Medical Records): [address], [place] 05/28/2020 TSH + Free T4, ? No observation ? ? ? [facility] Serum recorded. [place] (Medical Records): [address], [place] 05/28/2020 CMP, Serum or ? No observation ? ? ? [facility] Plasma recorded. [place] (Medical Records): [address], [place] 01/22/2020 LDL, Serum ? Ldl 90 ? ? 01/22/2020 HbA1C (Hemoglobin ? A1C 7.1 ? ? a1C), Blood 11/16/2019 LDL, Serum ? Ldl 109 ? ? 11/16/2019 HbA1C (Hemoglobin ? A1C 9.1 ? ? a1C), Blood 11/12/2019 HbA1C (Hemoglobin ? No observation ? ? ? [facility] a1C), Blood recorded. [facility] Laboratory : [address], [place] 11/12/2019 TSH + Free T4, ? No observation ? ? ? [facility] Serum recorded. [place] [facility] : [address], [place] 11/12/2019 Lipid Panel, Blood ? No observation ? ? ? [facility] recorded. [place] [facility] : [address], [place] 11/12/2019 CMP, Serum or ? No observation ? ? ? [facility] Plasma recorded. [place] [facility] : [address], [place] 02/27/2019 Fecal Occult ? No observation ? ? ? Blood, Stool recorded. 01/26/2019 Microalbumin, ? No observation ? ? ? [facility] Urine recorded. [place] Laboratory : [address], [place] 01/26/2019 TSH + Free T4, ? No observation ? ? ? [facility] Serum recorded. [place] [facility] : [address], [place] 01/26/2019 Lipid Panel, Serum ? No observation ? ? ? [facility] recorded. [place] [facility] : [address], [place] 01/26/2019 Glycohemoglobin, ? No observation ? ? ? [facility] Total, Blood recorded. [facility] : [address], [place] 01/26/2019 CMP, Serum or ? No observation ? ? ? [facility] Plasma recorded. [facility] Laboratory : [address], [place] 01/26/2019 LDL, Serum ? Ldl 88 ? ? 12/10/2017 LDL, Serum ? Ldl 90 ? ? 12/10/2017 HbA1C (Hemoglobin ? A1C 7.7 ? ? a1C), Blood 11/04/2017 CBC W/ Diff ? No observation ? ? ? [facility] recorded. [facility] Laboratory : [address], [place] 09/19/2017 Cbc ? No observation ? ? ? [facility] recorded. [facility] Laboratory : [address], [place] 09/19/2017 CMP, Serum or ? No observation ? ? ? [facility] Plasma recorded. [facility] Laboratory : [address], [place] 08/19/2017 Microalbumin/creat ? No observation ? ? ? [facility] inine, Ratio recorded. C enter Panel, Urine Labo ratory: [address], [place] 08/19/2017 Cbc ? No observation ? ? ? [facility] recorded. [facility] Laboratory : [address], [place] 08/19/2017 Glycohemoglobin, ? No observation ? ? ? [facility] Total, Blood recorded. C enter Laboratory : [address], [place] 08/19/2017 Lipid Panel, Serum ? No observation ? ? ? [facility] recorded. [facility] Laboratory : [address], [place] 08/19/2017 CMP, Serum or ? No observation ? ? ? [facility] Plasma recorded. [facility] Laboratory : [address], [place] 05/13/2017 HbA1C (Hemoglobin ? A1C 10.7 ? ? a1C), Blood Past Encounters 10/26/2021 Hypoglycemia Renae Russell PA: [address] [place] [address], Ph. 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 09/29/2020 Pre-surgery Evaluation [facility] Corea [facility] [address] [facility] [place] [address], Ph. 08/29/2020 Glaucoma; Insulin Treated Type 2 Diabete s Mellitus; Pre-surgery Evaluation; Cluster Headache [facility]ae Russell [facility] [address] [facility] [place] [address], Ph. Social History Tobacco Smoking Status Former [...]
--- NOTE | 2022-02-15 21:25 | ECG_ITS ---
Test Reason : ELEVATER K Blood Pressure : / mmHG Vent. Rate : 066 BPM Atrial Rate : 066 BPM P-R Int : 206 ms QRS Dur : 112 ms QT Int : 422 ms P-R-T Axes : 045 042 -10 degrees QTc Int : 442 ms Normal sinus rhythm Intra-ventricular conduction delay Nonspecific ST abnormality Abnormal ECG When compared with ECG of 04-FEB-2022 12:22, No significant changes seen Referred By: Lalit Flynn Electronically Signed By:YONIS EVANS MD
[2022-02-15 22:00] VITALS: BP 120/39; PULSE 66; RESP 14; TEMP 36.4; O2SAT 97
[2022-02-15 23:17] VITALS: BP 123/46; PULSE 66; RESP 18; TEMP 36.6; O2SAT 100
[2022-02-16] VITALS (7 sets, daily range): BP systolic 108–145; BP diastolic 41–62; PULSE 63–85; RESP 15–18; TEMP 35.9–36.8; O2SAT 95–100
[2022-02-16 00:06] LABS: Anion Gap 17 (12-20); Blood Urea Nitrogen 72 mg/dL (9-16); Carbon Dioxide 24 mmol/L (22-29); Chloride 99 mmol/L (96-108); Estimated Glomerular Filt Rate 26; Glucose Random 225 mg/dL (60-115); Potassium 5.4 mmol/L (3.3-5.1); Sodium 135 mmol/L (135-145)
--- NOTE | 2022-02-16 00:17 | PC.NURSE ---
Pt put on Bedpan but bedpan failed and sheets were soiled with urine. Pt given pericare, sheets and bedpan changed. Pt put on Purewick system
--- NOTE | 2022-02-16 00:53 | P.HPHOSP_ITS ---
History of Present Illness Date of Service: 02/16/22 Chief Complaint: abnormal labs 71-year-old female with past medical history of COPD on baseline 2 L of oxygen, CHF, diabetes, CKD, hyperlipidemia, hypertension, hypothyroidism, peripheral vascular disease, recent COVID infection who was discharged from the hospital on 12/23/21 after being managed for hypoxic respiratory failure secondary to CHF status post ICU admission and intubation, with difficult to wean off ventilator, remaining intubated for 20 days, initially extubated, and treated with p.o. Lasix and antibiotics for ESBL Klebsiella.. At that admission patient was also diagnosed with likely chronic lymphocytic leukemia and she was refer to Hematol ogy-Oncology. During that admission patient also had LEO on CKD, but prior to discharge her kidney function returned to baseline with a creatinine of 0.63. Patient was referred to Hematology-Oncology for workup of lymphoma/leukemia, and discharged on 40 of Lasix b.i.d.. [facility] was [facility] jail given her significant myopathy. Patient reports that she had routine outpatient lab work for Hematology-Oncology which showed worsening kidney function. She reports that she is currently bed-bound at jail due to the fact that she still cannot walk. She denies having any chest pain at this time, no abdominal pain, no diarrhea constipation, no urinary symptoms. Reports no recent dehydration, reports that she has been eating and drinking well at the jail. She denies having any vomiting. She has no increased shortness of breath, cough, no orthopnea or PND. Extremity edema. On arrival to the ED patient hemodynamically stable with no significant abnormal vitals Labs are significant for WBC count of 136, potassium of 5.6, creatinine of 1.82 with a baseline of around 0.64 UA negative, COVID-19 negative, Review of Systems Review of Systems: Yes all other systems are reviewed and are negative [facility] Medical History CKD (chronic kidney disease) Congestive heart failure COVID Diabetes mellitus with insulin therapy Essential hypertension HLD (hyperlipidemia) HTN (hypertension) Hypothyroidism Infection with ESBL Klebsiella oxytoca Klebsiella pneumonia Lower extremity edema Lymphadenopathy, mediastinal Migraine Obesity Pleural effusion Pseudotumor cerebri PVD (peripheral vascular disease) Suspected deep tissue injury Family History Mother Heart attack, Onset Age: 92 Father Heart attack, Onset Age: 66 Other Diabetes Surgical History H/O cataract extraction H/O hysterectomy for benign disease Hx of cholecystectomy S/P appendectomy Social History Housing: Assisted Living Facility Alcohol intake: never Patient Tobacco Use Status: Never used Tobacco Smoked in Last 30 Days: No Use of substances other than those prescribed or required for medical reasons: No Advance Directives: Yes Advance Directives on File: Yes Advance Directives Date on File: 09/26/20 service: No Current occupational status: disabled Meds Allergies Allergy/AdvReac Type Severity Reaction Status Date / Time oxycodone [From Percocet] Allergy Intermediate Rash Verified 02/15/22 18:55 Home Medications Medication Instructions Recorded Confirmed Last Taken Type aspirin 325 mg tablet 325 mg PO DAILY 10/08/21 11/20/21 Unknown History brinzolamide 1 %-brimonidine 0.2 % 1 drp ophthalmic-Right BID 10/08/21 11/20/21 Unknown History eye drops,suspension (Simbrinza) chlordiazepoxide HCl 10 mg capsule 10 mg PO BEDTIME 10/08/21 11/20/21 Unknown History citalopram 20 mg tablet 20 mg PO DAILY 10/08/21 11/20/21 Unknown History docusate sodium 100 mg tablet 100 mg PO DAILY 10/08/21 11/20/21 Unknown History furosemide 40 mg tablet 40 tab PO BID@0900,1800 10/08/21 11/20/21 Unknown History hydroxychloroquine 200 mg tablet 200 mg PO BID 10/08/21 11/20/21 Unknown History insulin lispro protamine-lispro 7 - 15 ea subcut TIDAC 10/08/21 11/20/21 Unknown History 100 unit/mL (75-25) subcutaneous pen levothyroxine 175 mcg tablet 175 mcg PO DAILY@0600 10/08/21 11/20/21 Unknown History multivitamin 1 tab PO DAILY 10/08/21 11/20/21 Unknown History netarsudil 0.02 %-latanoprost 1 drp ophthalmic (eye) BEDTIME 10/08/21 11/20/21 Unknown History 0.005 % eye drops (Rocklatan) simvastatin 20 mg tablet 20 mg PO BEDTIME 10/08/21 11/20/21 Unknown History sitagliptin 100 mg tablet (Januvia) 100 mg PO DAILY 10/08/21 11/20/21 Unknown History latanoprost 0.005 % eye drops 1 drp ophthalmic (eye) BEDTIME 11/20/21 11/20/21 Unknown History prednisolone ophthalmic-Right 1XD 12/07/21 Unknown History timolol drp ophthalmic (eye) 2XD 12/07/21 Unknown History Physical Exam Vital Signs and Narrative: Vital Signs: Last Vital Signs Temp 97.9 F 02/15/22 23:17 Pulse 66 02/15/22 23:17 Resp 18 02/15/22 23:17 BP 123/46 L 02/15/22 23:17 Pulse Ox 100 02/15/22 23:17 O2 Del Method 02/15/22 23:17 O2 Flow Rate 2 02/15/22 23:17 BMI result Body Mass Index 28.3 Const: General: cooperative and no acute distress Orientation/consciousness: patient oriented x3 Eyes: General: appearance normal, both eyes and all related structures Resp: Effort & Inspection: normal respiratory effort Auscultation: clear to auscultation bilaterally Cardio: Rate: regular rate Rhythm: regular rhythm GI: Other: Abdomen is soft, nontender, no rebound or guarding Palpation (GI): Soft to palpation Auscultation: normal bowel sounds Skin: General skin exam: no rashes or lesions noted Neuro: General: patient oriented x3 Cognition (Neuro): normal cognition Extrem: General: Yes normal to inspection and Yes no pedal edema Results Labs CBC and Chem 7: 02/15/22 23:46 Labs: Laboratory Results - last 24 hr 02/15/22 23:46 Anion Gap 17 Estim Creat Clear Calc 26.0 Estimated GFR 26 Random Glucose 225 H Calcium 9.0 Assessment and Plan (1) LEO (acute kidney injury): Status: Acute (2) Acute hyperkalemia: Status: Acute Plan 71-year-old female with past medical history of CHF, hypertension, diabetes type 2 among others presents to the hospital with complaints of abnormal labs found to have increased creatinine # LEO - unclear etiology at this time, patient is on furosemide 40 mg b.i.d. which may be the underlying cause - FENA was obtained after patient received ED fluids therefore possibly i naccurate - at this time will stop furosemide, will treat with IV fluids - follow BMP - if BMP shows worsening creatinine consider Nephrology consult # hyperkalemia - likely secondary to LEO - no evidence of EKG changes - follow BMP - anticipate improvement with improvement of kidney function # hypertension - Stable - continue amlodipine, # DM - continue home insulin - low-dose sliding scale insulin - diabetic diet # Hypothyroidism - continue levothyroxine # history of CHF - diastolic heart failure - not in exacerbation - hold Lasix in the setting of LEO - monitor volume and respiratory status DVT prophylaxis: Heparin subQ Given patient's LEO patient require minimum 2 night inpatient hospital stay for further management and monitoring Quality Stroke Does the patient have a stroke diagnosis?: No VTE Prior VTE?: No VTE Risk Level:: Medical - low VTE Device Contraindication: N/A - Device Ordered VTE Drug Contraindication: Treatment Not Indicated
--- OUTSIDE RECORDS SUMMARY | 2022-02-16 01:01 | XMS_ITS ---
[...] Lf/0.5 mL Completed ? 02/06/2020 intramuscular syringe [id number] 50 mg-325 mg-40 mg tablet Acti ve [...] Cataract Surgery Information not avai lable 04/04/1990 [employer] Shunt Placement Information not avai lable ? Tubal Ligation Information not avai lable ? Cholecystectomy Information not avai lable ? Appendectomy Information not avai lable ? Total Hysterectomy Information not avai lable Results Lab Results Date Name Specimen Result Interpretation Description Value Range Status Address ? 04/21/2021 HbA1C (Hemoglobin ? No observation ? ? ? [facility] a1C), Blood recorded. Ce nter (Medical Records): [address] [facility] 05/28/2020 CBC W/ Auto Diff ? No observation ? ? ? [facility] recorded. Center (Medical Records): [address] [facility] 05/28/2020 HbA1C (Hemoglobin ? No observation ? ? ? [facility] a1C), Blood recorded. nt (Medical Records): [address], [place] 05/28/2020 TSH + Free T4, ? No observation ? ? ? [facility] Serum recorded. [place] (Medical Records): [address], [place] 05/28/2020 CMP, Serum or ? No observation ? ? ? [facility] Plasma recorded. [place] (Medical Records): [address], [place] 01/22/2020 LDL, Serum ? Ldl 90 ? ? 01/22/2020 HbA1C (Hemoglobin ? A1C 7.1 ? ? a1C), Blood 11/16/2019 LDL, Serum ? Ldl 109 ? ? 11/16/2019 HbA1C (Hemoglobin ? A1C 9.1 ? ? a1C), Blood 11/12/2019 HbA1C (Hemoglobin ? No observation ? ? ? [facility] a1C), Blood recorded. [facility] Laboratory : [address], [place] 11/12/2019 TSH + Free T4, ? No observation ? ? ? [facility] Serum recorded. [facility] : [address], [place] 11/12/2019 Lipid Panel, Blood ? No observation ? ? ? [facility] recorded. [facility] : [address], [place] 11/12/2019 CMP, Serum or ? No observation ? ? ? [facility] Plasma recorded. [facility] : [address], [place] 02/27/2019 Fecal Occult ? No observation ? ? ? Blood, Stool recorded. 01/26/2019 Microalbumin, ? No observation ? ? ? [facility] Urine recorded. [facility] : [address], [place] 01/26/2019 TSH + Free T4, ? No observation ? ? ? [facility] Serum recorded. [facility] : [address], [place] 01/26/2019 Lipid Panel, Serum ? No observation ? ? ? [facility] recorded. [facility] : [address], [place] 01/26/2019 Glycohemoglobin, ? No observation ? ? ? [facility] Total, Blood recorded. [facility] Laboratory : [address], [place] 01/26/2019 CMP, Serum or ? No observation ? ? ? [facility] Plasma recorded. Center Laboratory : [address], [place] 01/26/2019 LDL, Serum ? Ldl 88 ? ? 12/10/2017 LDL, Serum ? Ldl 90 ? ? 12/10/2017 HbA1C (Hemoglobin ? A1C 7.7 ? ? a1C), Blood 11/04/2017 CBC W/ Diff ? No observation ? ? ? [facility] recorded. Center Laboratory : [address], [place] 09/19/2017 Cbc ? No observation ? ? ? [facility] recorded. Center Laboratory : [address], [place] 09/19/2017 CMP, Serum or ? No observation ? ? ? [facility] Plasma recorded. Center Laboratory : [address], [place] 08/19/2017 Microalbumin/creat ? No observation ? ? ? [facility] inine, Ratio recorded. C enter Panel, Urine Labo ratory: [address], [place] 08/19/2017 Cbc ? No observation ? ? ? [facility] recorded. Center Laboratory : [address], [place] 08/19/2017 Glycohemoglobin, ? No observation ? ? ? [facility] Total, Blood recorded. C enter Laboratory : [address], [place] 08/19/2017 Lipid Panel, Serum ? No observation ? ? ? [facility] recorded. Center Laboratory : [address], [place] 08/19/2017 CMP, Serum or ? No observation ? ? ? [facility] Plasma recorded. Center Laboratory : [address], [place] 05/13/2017 HbA1C (Hemoglobin ? A1C 10.7 ? ? a1C), Blood Past Encounters 10/26/2021 Hypoglycemia Renae Russell PA: [address] [place] [address], Ph. 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 09/29/2020 Pre-surgery Evaluation [facility] [address] [facility] [place] [address], Ph. 08/29/2020 Glaucoma; Insulin Treated Type 2 Diabete s Mellitus; Pre-surgery Evaluation; Cluster Headache Renae Russell PA[facility] [address] [facility] [place] [address], Ph. Social History Tobacco Smoking Status Former [...]
[2022-02-16 01:24] LABS: COVID-19 Test Negative (Negative); IDNOW Serial# BCCEAD1C
--- NOTE | 2022-02-16 01:49 | PC.NURSE ---
Pt currently connected to a OYE!wick but a urine sample is need. Pt made aware and instructed to ring the call morocho next time she has to urinate so a clean catch can be obtained. Luz Luu made aware
[2022-02-16] MEDS: Lactated Ringers 1,000 ML 100 ML IVCONT ×2 (01:55→12:07)
--- NOTE | 2022-02-16 03:29 | PC.NURSE ---
Pt given valeriy care. Purewick changed. Pt given warm blankets and call morocho placed in reach
[2022-02-16 03:53] LABS: Appearance Urine Clear; Color Urine Dark Yellow; Glucose Urine UA Negative (Negative); Leukocyte Esterase Urine Negative (Negative); Nitrite Urine Negative (Negative); Urine Blood Negative (Negative); Urine Ketones Negative (Negative); Urine Protein Negative (Neg-Trace)
[2022-02-16 04:05] LABS: Creatinine Urine 43.92 mg/dL
[2022-02-16 07:35] LABS: Glucose, Whole Blood 206 mg/dL (60-115)
[2022-02-16] MEDS: Insulin Lispro 100 UNIT/ML 3 ML VIAL SUBCUT ×3 (07:46→16:43)
[2022-02-16] MEDS: Heparin Sodium,Porcine 5,000 UNIT/ML VIAL 5000 UNIT SUBCUT ×2 (07:47→18:11)
[2022-02-16 08:21] LABS: MANUAL DIFF FLAG NO
[2022-02-16 08:41] LABS: Anion Gap 16 (12-20); Blood Urea Nitrogen 66 mg/dL (9-16); Carbon Dioxide 22 mmol/L (22-29); Chloride 99 mmol/L (96-108); Creatinine Clr Calc Pharmacy 30.3; Estimated Glomerular Filt Rate 31; Glucose Random 217 mg/dL (60-115); Potassium 5.1 mmol/L (3.3-5.1); Sodium 132 mmol/L (135-145)
[2022-02-16 08:43] LABS: Basophils Absolute Auto 0.1 X10*3/uL (0.0-0.2); Basophils Percent Auto 0.6 % (0-2); Eosinophils Absolute Auto 0.8 X10*3/uL (0.0-0.4); Eosinophils Percent Auto 5.7 % (0-4); Hematocrit 33.7 % (37.0-47.0); Hemoglobin 10.5 g/dl (12.0-16.0); Imm Gran Abs Auto 0.06 X10*3/uL (0.00-0.03); Imm Gran Pct Auto 0.4 % (0.0-0.4); Lymphocytes Absolute Auto 1.2 X10*3/uL (1.2-4.9); Lymphocytes Percent Auto 8.5 % (20-40); Mean Corpuscular HGB Conc 31.2 g/dl (31.0-35.0); Mean Corpuscular Hemoglobin 27.1 pg (27.0-33.0); Mean Corpuscular Volume 86.9 fL (80.0-98.0); Mean Platelet Volume 12.9 fL (9.4-12.3); Monocytes Absolute Auto 1.4 X10*3/uL (0.1-1.2); Monocytes Percent Auto 10.3 % (2-11); Neutrophils Absolute Auto 10.1 x10*3/uL (2.0-8.3); Neutrophils Percent Auto 74.5 % (45-73); Platelet Count 138 X10*3/uL (160-400); Red Blood Count 3.88 X10*6/uL (4.20-5.50); Red Cell Distribution Width 15.8 % (11.0-16.0); White Blood Count 13.5 X10*3/uL (4.8-10.8)
--- NOTE | 2022-02-16 08:44 | PHA.MEDREC ---
Pharmacy Consult ? Medication Reconciliation Pharmacy has completed the medication reconciliation. Used list from [facility]
--- NOTE | 2022-02-16 08:54 | MHC.CM.PN ---
PATIENT IS IN FROM [facility] [place]. 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 SHE STATES THAT SHE IS BEDBOUND; HOWEVER, SHE DOES MOBILIZE WITH A WHEELCHAIR AT FACILITY. HCP ON FILE AND VERIFIED. REFERRAL PLACED TO [facility] FOR HER RETURN. MANCINI 02/16 IN CHART
--- NOTE | 2022-02-16 08:58 | MHC.CM.PN ---
PATIENT USES 2 L O2 VIA CANNULA AT [facility]
[2022-02-16 09:18] LABS: B Type Natriuretic Peptide 246 pg/mL (<100)
[2022-02-16 11:23] LABS: Glucose, Whole Blood 257 mg/dL (60-115)
--- NOTE | 2022-02-16 13:48 | HO.PM.IMPN ---
Subjective Subjective Date of Service: 02/16/22 Interval History: Resting comfortably in bed offers no acute complaints tolerated diet denies nausea vomiting abdominal pain or diarrhea, denies urinary symptoms of frequency or urgency, no other acute events overnight. 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 Neck supple no JVD. CVS regular rate rhythm, Respiratory lungs clear to auscultation, no respiratory distress, no wheeze, no rhonchi. Gastrointestinal abdomen soft, nontender, bowel sounds audible, no guarding , no rigidity. Extremities no edema. Neuro nonfocal ,speech clear. Psych appropriate affect Objective Data Active Medications Acetaminophen (Acetaminophen 325 Mg Tablet) 650 mg PO Q6H PRN PRN Reason: Pain, Mild (Pain Scale 1-3) Dextrose (Dextrose 50 % 25 Gm/50 Ml Syringe) 25 gm IVPUSH Q15M PRN; Protocol PRN Reason: per Hypoglycemia Standing Ord. Docusate Sodium (Docusate Sodium 100 Mg Capsule) 100 mg PO DAILY PRN PRN Reason: Constipation Glucose (Glucose Gel 15 Gm Gel..Gram.) 15 gm PO Q15M PRN; Protocol PRN Reason: per Hypoglycemia Standing Ord. Heparin Sodium (Porcine) (Heparin Sodium,Porcine 5,000 Unit/Ml Vial) 5,000 unit SUBCUT Q12H [facility] Last Admin: 02/16/22 07:47 Dose: 5,000 unit Documented By: COTEMA Lactated Ringer's (Lr) 1,000 mls @ 100 mls/hr IVCONT .Q10H [facility] Last Admin: 02/16/22 12:07 Dose: 100 mls/hr Documented By: COTEMA Insulin Human Lispro (Insulin Lispro 100 Unit/Ml 3 Ml Vial) 0 unit SUBCUT QIDACHS [facility]; Protocol Last Admin: 02/16/22 12:06 Dose: 6 unit Documented By: JHONNY Ondansetron HCl (Ondansetron Hcl 4 Mg/2 Ml Vial) 4 mg IVPUSH Q8H PRN PRN Reason: Nausea and Vomiting Pharmacy Consult (Consult Rx Perform Med Rec) 1 each MISCELLANE ONCE PRN PRN Reason: Consult order Sodium Chloride (0.9 % Sodium Chloride Flush 3 Ml Syringe) 3 ml IVFLUSH [facility] Last Admin: 02/16/22 07:12 Dose: Not Given Documented By: HJONNY Non-Admin Reason: IV Running Labs CBC & Chem 7: 02/16/22 08:00 02/16/22 08:00 Labs: Laboratory Results - last 24 hr 02/15/22 02/16/22 02/16/22 23:46 01:05 03:44 MCV MCH MCHC RDW Plt Count MPV Immature Gran % (Auto) Neut % (Auto) Lymph % (Auto) [place] % (Auto) Eos % (Auto) Baso % (Auto) Lymph # (Auto) [place] # (Auto) Eos # (Auto) Baso # (Auto) Abs Immat Gran (auto) Absolute Neuts (auto) Absolute Nucleated RBC Nucleated RBC % (auto) Anion Gap 17 Estim Creat Clear Calc 26.0 Estimated GFR 26 POC Glucose Random Glucose 225 H Calcium 9.0 B-Natriuretic Peptide Urine Color Dark Yellow Urine Appearance Clear Urine pH 5.0 Ur Specific [place] 1.010 Urine Protein Negative Urine Glucose (UA) Negative Urine Ketones Negative Urine Blood Negative Urine Nitrite Negative Ur Leukocyte Esterase Negative Ur Random Sodium Urine Creatinine COVID-19 (DENY) Negative COVID-19 Clin Com See Note 02/16/22 02/16/22 02/16/22 03:44 07:31 08:00 MCV 86.9 MCH 27.1 MCHC 31.2 RDW 15.8 Plt Count 138 L MPV 12.9 H Immature Gran % (Auto) 0.4 Neut % (Auto) 74.5 H Lymph % (Auto) 8.5 L [place] % (Auto) 10.3 Eos % (Auto) 5.7 H Baso % (Auto) 0.6 Lymph # (Auto) 1.2 [place] # (Auto) 1.4 H Eos # (Auto) 0.8 H Baso # (Auto) 0.1 Abs Immat Gran (auto) 0.06 H Absolute Neuts (auto) 10.1 H Absolute Nucleated RBC 0.000 Nucleated RBC % (auto) 0.0 Anion Gap Estim Creat Clear Calc Estimated GFR POC Glucose 206 H Random Glucose Calcium B-Natriuretic Peptide Urine Color Urine Appearance Urine pH Ur Specific [place] Urine Protein Urine Glucose (UA) Urine Ketones Urine Blood Urine Nitrite Ur Leukocyte Esterase Ur Random Sodium 56.0 Urine Creatinine 43.92 COVID-19 (DENY) COVID-19 Clin Com 02/16/22 02/16/22 02/16/22 08:00 08:00 10:56 MCV MCH MCHC RDW Plt Count MPV Immature Gran % (Auto) Neut % (Auto) Lymph % (Auto) [place] % (Auto) Eos % (Auto) Baso % (Auto) Lymph # (Auto) [place] # (Auto) Eos # (Auto) Baso # (Auto) Abs Immat Gran (auto) Absolute Neuts (auto) Absolute Nucleated RBC Nucleated RBC % (auto) Anion Gap 16 Estim Creat Clear Calc 30.3 Estimated GFR 31 POC Glucose 257 H Random Glucose 217 H Calcium 9.0 B-Natriuretic Peptide 246 H Urine Color Urine Appearance Urine pH Ur Specific [place] Urine Protein Urine Glucose (UA) Urine Ketones Urine Blood Urine Nitrite Ur Leukocyte Esterase Ur Random Sodium Urine Creatinine COVID-19 (DENY) COVID-19 Clin Com Assessment and Plan (1) LEO (acute kidney injury): Status: Acute (2) Acute hyperkalemia: Status: Acute Plan 71-year-old female with past medical history of CHF, hypertension, diabetes type 2 among others presents to the hospital with complaints of abnormal labs found to have increased creatinine # LEO likely pre renal since creatinine improving with IV fluids Continue to hold Lasix, lisinopril, avoid nephrotoxins, avoid hypotension Follow BMP, decrease IV fluid to 60 mL/hour # hyperkalemia - likely secondary to JEN-inhibitor, potassium improved to 5.1, will DC lisinopril - no evidence of EKG changes - follow BMP # hypertension - BP stable off of all blood pressure medications including amlodipine 10 mg, lisinopril 10 mg, hydralazine 50 mg t.i.d., and metoprolol 50mg b.i.d. Will resume metoprolol and hold all other blood pressure medications to avoid hypotension, # DM type 2 on insulin - elevated blood sugars will resume home dose of Lantus and Januvia, continue insulin sliding scale and diabetic diet # Hypothyroidism - resume levothyroxine # history of diastolic CHF no evidence of heart failure, appears euvolemic will hold Lasix for gentle IV fluids for LEO follow clinical course DVT prophylaxis:? Heparin subQ Given patient's LEO patient require continued IV fluids and close follow-up on BMP. Quality Stroke Does the patient have a stroke diagnosis?: No VTE Prior VTE?: No VTE Risk Level:: Medical - low VTE Device Contraindication: N/A - Device Ordered VTE Drug Contraindication: Treatment Not Indicated
[2022-02-16 15:59] LABS: Glucose, Whole Blood 186 mg/dL (60-115)
[2022-02-16] MEDS: prednisoLONE Acetate 1 % Oph Susp 5 ML DRPBTL 1 DROP EYE-RIGHT ×2 (16:43→21:05)
[2022-02-16 19:53] LABS: Glucose, Whole Blood 149 mg/dL (60-115)
[2022-02-16] MEDS: timoloL maleate 0.5 % Oph Sol 5 ML DRBTL 1 DROP EYE-RIGHT (21:05)
[2022-02-16] MEDS: Insulin Glargine,Hum.rec.anlog 100 UNIT/ML 10 ML VIAL 35 UNIT SUBCUT (21:06)
[2022-02-16] MEDS: Metoprolol Tartrate 50 MG TABLET PO (21:07)
[2022-02-16] MEDS: Hydroxychloroquine Sulfate 200 MG TABLET PO (21:07)
[2022-02-16] MEDS: Atorvastatin Calcium 10 MG TABLET PO (21:07)
[2022-02-16] MEDS: chlordiazePOXIDE HCl 5 MG CAPSULE 10 MG PO (21:07)
[2022-02-16] MEDS: Nystatin Powder 15 GM BOTTLE 1 APPL TOPICAL (21:14)
[2022-02-16] MEDS: Latanoprost 0.005 % Ophth Sol 2.5 ML DROPS 1 DROP EYE-BOTH (21:14)
[2022-02-17] MEDS: Lactated Ringers 1,000 ML 60 ML IVCONT (02:45)
[2022-02-17 03:58] VITALS: BP 142/64; PULSE 63; RESP 14; TEMP 36; O2SAT 100
[2022-02-17] MEDS: Levothyroxine Sodium 175 MCG TABLET PO (05:47)
[2022-02-17] MEDS: Heparin Sodium,Porcine 5,000 UNIT/ML VIAL 5000 UNIT SUBCUT (05:49)
[2022-02-17 07:36] VITALS: BP 140/60; PULSE 64; RESP 17; TEMP 36.3; O2SAT 98
[2022-02-17 07:51] LABS: Glucose, Whole Blood 123 mg/dL (60-115)
[2022-02-17 07:51] LABS: Anion Gap 14 (12-20); Blood Urea Nitrogen 47 mg/dL (9-16); Carbon Dioxide 28 mmol/L (22-29); Chloride 100 mmol/L (96-108); Creatinine Clr Calc Pharmacy 41.2; Estimated Glomerular Filt Rate 44; Glucose Random 112 mg/dL (60-115); Potassium 5.1 mmol/L (3.3-5.1); Sodium 137 mmol/L (135-145)
[2022-02-17] MEDS: Multivitamin TABLET 1 TAB PO (08:36)
[2022-02-17] MEDS: Magnesium Oxide 400 MG TABLET PO (08:37)
[2022-02-17] MEDS: SITagliptin Phosphate 100 MG TABLET PO (08:37)
[2022-02-17] MEDS: Metoprolol Tartrate 50 MG TABLET PO (08:37)
[2022-02-17] MEDS: Escitalopram Oxalate 20 MG TABLET PO (08:37)
[2022-02-17] MEDS: Docusate Sodium 100 MG CAPSULE PO (08:38)
[2022-02-17] MEDS: Hydroxychloroquine Sulfate 200 MG TABLET PO (08:38)
[2022-02-17] MEDS: Nystatin Powder 15 GM BOTTLE 1 APPL TOPICAL (08:39)
[2022-02-17] MEDS: prednisoLONE Acetate 1 % Oph Susp 5 ML DRPBTL 1 DROP EYE-RIGHT ×2 (08:39→12:20)
[2022-02-17] MEDS: timoloL maleate 0.5 % Oph Sol 5 ML DRBTL 1 DROP EYE-RIGHT (08:39)
[2022-02-17] MEDS: 0.9 % Sodium Chloride Flush 3 ML SYRINGE IVFLUSH (08:40)
--- NOTE | 2022-02-17 10:48 | PM.DS ---
DS: Providers Provider Date of Service: 02/17/22 Date of admission: 02/16/22 00:50 Primary care physician: Tam Corea MD DS: Diagnosis Discharge Diagnosis (1) LEO (acute kidney injury): Status: Acute (2) Acute hyperkalemia: Status: Acute DS: Summary Hospital Course Hospital Course: Date of Service: 02/16/22 Chief Complaint: abnormal labs 71-year-old female with past medical history of COPD on baseline 2 L of oxygen, CHF, diabetes, CKD, hyperlipidemia, hypertension, hypothyroidism, peripheral vascular disease, recent COVID infection who was discharged from the hospital on 12/23/21 after being managed for hypoxic respiratory failure secondary to CHF status post ICU admission and intubation, with difficult to wean off ventilator, remaining intubated for 20 days, initially extubated, and treated with p.o. Lasix and antibiotics for ESBL Klebsiella..? At that admission patient was also diagnosed with likely chronic lymphocytic leukemia and she was refer to Hematology-Oncology.? During that admission patient also had LEO on CKD, but prior to discharge her kidney function returned to baseline with a creatinine of 0.63.? Patient was referred to Hematology-Oncology for workup of lymphoma/leukemia, and discharged on 40 of Lasix b.i.d..? She was sent to [facility] given her significant myopathy.? Patient reports that she had routine outpatient lab work for Hematology-Oncology which showed worsening kidney function. She reports that she is currently bed-bound at [facility] due to the fact that she still cannot walk.? She denies having any chest pain at this time, no abdominal pain, no diarrhea constipation, no urinary symptoms.? Reports no recent dehydration, reports that she has been eating and drinking well at the [facility].? She denies having any vomiting.? She has no increased shortness of breath, cough, no orthopnea or PND.? Extremity edema.? On arrival to the ED patient hemodynamically stable with no significant abnormal vitals Labs are significant for WBC count of 136, potassium of 5.6, creatinine of 1.82 with a baseline of around 0.64 UA negative, COVID-19 negative, hospitalist course 71-year-old female with past medical history of CHF, hypertension, diabetes type 2 among others presents to the hospital with complaints of abnormal labs found to have increased creatinine # LEO with hyperkalemia likely pre renal and due to use of lisinopril patient treated with IV fluids creatinine normalized, Lasix and lisinopril were held, patient is now being discharged home on Lasix 40 mg once daily recommend to follow clinical course closely and increase dose of Lasix if noted to have fluid overload or symptoms of shortness of breath suggestive of CHF, lisinopril discontinued due to soft blood pressure and hyperkalemia # hypertension - BP noted to be soft on admission therefore lisinopril and hydralazine discontinued continue beta-jos and Norvasc and follow blood pressure closely. # DM type 2 on insulin continue home medication # Hypothyroidism- resume levothyroxine # history of diastolic CHF no evidence of heart failure, appears euvolemic , resume Lasix 40 mg by mouth daily and follow clinical course Time Spent with Patient Time attestation: Total time spent providing and/or coordinating discharge services: Discharge coordination time: Greater than 30 minutes Quality: Safe Use of Opioids Does Pt have an Active Cancer Diagnosis on the Problem List?: No Quality: Stroke Does the patient have a stroke diagnosis?: No Physical Exam Vital Signs: Vital Signs: Last Vital Signs Temp 97.4 F 02/17/22 07:36 Pulse 64 02/17/22 07:36 Resp 17 02/17/22 07:36 BP 140/60 H 02/17/22 07:36 Pulse Ox 98 02/17/22 07:36 O2 Del Method 02/17/22 07:36 O2 Flow Rate 2 02/17/22 07:36 BMI result Body Mass Index 28.3 Const: Other: General awake alert x3, resting comfortably in no acute distress.? Neck? supple no JVD. CVS? regular rate rhythm, Respiratory lungs clear to auscultation, no respiratory distress, no wheeze, no rhonchi. Gastrointestinal abdomen soft, nontender, bowel sounds audible, no guarding , no rigidity. Extremities no edema. Neuro nonfocal ,speech clear. Psych appropriate affect DS: Data Data Completed and Pending Completed studies during hospitalization [Text1]: Procedures Drainage of Left Main Bronchus, Via Natural or Artificial Opening Endoscopic, Diagnostic (11/19/21) Drainage of Left Pleural Cavity, Percutaneous Approach (11/19/21) Drainage of Right Main Bronchus, Via Natural or Artificial Opening Endoscopic, Diagnostic (11/19/21) Drainage of Right Pleural Cavity, Percutaneous Approach (11/19/21) Excision of Right Inguinal Lymphatic, Percutaneous Approach, Diagnostic (11/19/21) Excision of Thorax Lymphatic, Percutaneous Endoscopic Approach, Diagnostic (11/19/21) Insertion of Endotracheal Airway into Trachea, Via Natural or Artificial Opening (11/19/21) Insertion of Infusion Device into Superior Vena Cava, Percutaneous Approach (11/19/21) Inspection of Tracheobronchial Tree, Via Natural or Artificial Opening Endoscopic (11/19/21) Introduction of Remdesivir Anti-infective into Peripheral Vein, Percutaneous Approach, [employer] (10/11/21) Introduction of Vasopressor into Central Vein, Percutaneous Approach (11/19/21) Respiratory Ventilation, Greater than 96 Consecutive Hours (11/19/21) Ultrasonography of Superior Vena Cava, Guidance (11/19/21) Labs on day of discharge: Laboratory Results - last 24 hr 02/16/22 02/16/22 02/16/22 10:56 15:49 19:30 Sodium Potassium Chloride Carbon Dioxide Anion Gap BUN Creatinine Estim Creat Clear Calc Estimated GFR POC Glucose 257 H 186 H 149 H Random Glucose Calcium 02/17/22 02/17/22 06:04 07:32 Sodium 137 Potassium 5.1 Chloride 100 Carbon Dioxide 28 Anion Gap 14 BUN 47 H Creatinine 1.21 Estim Creat Clear Calc 41.2 Estimated GFR 44 POC Glucose 123 H Random Glucose 112 Calcium 9.0 Discharge Plan Discharge Patient Disposition: er [facility] Discharge Diagnosis: acute kidney injury hyperkalemia Referrals: Tam Corea MD [Primary Care Provider] - 1 Week Discharge Medications: Continued levothyroxine 175 mcg tablet 175 mcg PO DAILY@0600 citalopram 20 mg tablet 40 mg PO DAILY simvastatin 20 mg tablet 20 mg PO BEDTIME chlordiazepoxide HCl 10 mg capsule 10 mg PO BEDTIME hydroxychloroquine 200 mg tablet 200 mg PO BID insulin lispro protamin-lispro 100 unit/mL (75-25) insulin pen 4 - 12 ea subcut TIDAC Januvia 100 mg tablet 100 mg PO DAILY multivitamin Tablet 1 tab PO DAILY aspirin 325 mg Tablet 325 mg PO DAILY docusate sodium 100 mg Tablet 100 mg PO DAILY amlodipine 10 mg tablet 10 mg PO DAILY Qty: 30 0RF latanoprost 0.005 % drops 1 drp ophthalmic (eye) BEDTIME nystatin 100,000 unit/gram Powder 1 appl topical BID 7 Days Qty: 30 0RF Protocol: Apply to: Apply to: intertriginous areas albuterol sulfate 0.63 mg/3 mL Solution For Nebulization 0.63 mg INHALATION Q4-6H PRN (Reason: Wheezing) sennosides [senna] 8.6 mg Tablet 8.6 mg PO BEDTIME PRN (Reason: Constipation) moszuujdsb-qdpxaqxmavell-zlkc 50-325-40 mg tablet 1 tab PO QID PRN (Reason: Pain) prednisolone acetate 1 % drops,suspension 1 drp ophthalmic-Right QID bisacodyl 10 mg Suppository 10 mg ID DAILY PRN (Reason: Constipation) metoprolol tartrate 50 mg Tablet 50 mg PO BID Fleet Enema 19-7 gram/118 mL Enema 118 ml ID DAILY PRN (Reason: Constipation) timolol maleate 0.5 % drops 1 drp ophthalmic-Right BID coenzyme Q10 [CoQ-10] 100 mg Capsule 50 mg PO DAILY diclofenac sodium 1 % Gel 2 g TOPICAL QID Rx Instructions: apply to single elbow, wrist or hand; for hand includes palm/fingers/back of hand melatonin 5 mg Tablet 5 mg PO BEDTIME PRN (Reason: Sleep) Simbrinza 1-0.2 % drops,suspension 1 drp ophthalmic-Right BID riboflavin (vitamin B2) 400 mg Tablet 400 mg PO DAILY magnesium oxide 400 mg magnesium Tablet 400 mg PO DAILY insulin glargine [Lantus Solostar U-100 Insulin] 100 unit/mL (3 mL) insulin pen 35 unit subcut BEDTIME Changed furosemide 40 mg tablet 40 mg PO DAILY Qty: 30 0RF Discontinued hydralazine 50 mg Tablet 50 mg PO TID 30 Days Qty: 90 0RF Protocol: Hold for SBP< HOLD for SBP < : 90 lisinopril 10 mg Tablet 10 mg PO DAILY Discharge Orders: Discharge Order (Routine); Ordered 02/17/22 Ordered By: Krystal Guillen Diet: Advance to usual diet Activity on Discharge: As tolerated Stand Alone Forms: Patient Portal Discharge page Care Plan Goals: LEO and hyperkalemia resolved, patient treated with IV fluid, dose of Lasix reduced to 40 mg once daily, lisinopril discontinued, patient noted to have soft blood pressure therefore recommend to discontinue hydralazine . stop lisinopril and hydralazine follow clinically for fluid overload since dose of Lasix reduced to 40 mg once daily previous dose Lasix 40 mg twice daily Health Concerns: continue all home medications as above Plan of Treatment: outpatient follow-up with primary care physician Assessment: as above
[2022-02-17 11:20] VITALS: BP 149/63; PULSE 67; RESP 18; TEMP 36.6; O2SAT 100
[2022-02-17 11:34] LABS: Glucose, Whole Blood 226 mg/dL (60-115)
[2022-02-17] MEDS: Insulin Lispro 100 UNIT/ML 3 ML VIAL SUBCUT (12:19)
--- NOTE | 2022-02-17 12:22 | MHC.CM.PN ---
Addendum entered by Sri Clayton 02/17/22 13:00: MESSAGE LEFT WITH PRIMARY CONTACT NIA TO NOTIFY OF TRANSFER BACK TO [facility]. Original Note: DP: PT MEDICALLY CLEARED FOR DC, WILL RETURN TO [facility]. RN MADE AWARE. TRANSPORTATION BOOKED FOR 2:30 PM WITH AMANDA
== END 2022-02-17 15:45 | disposition skilled nursing facility (03) ==
LOC: HO.ED 02-16 00:56 → HO.EDOVER 02-16 00:59 → HO.S3 02-16 03:06
PROVIDERS: Admitting Provider Internal Medicine; Emergency Provider Internal Medicine; PCP Internal Medicine; Visit Provider Hospitalist
DX: E23.2 Diabetes insipidus (principal); N17.9 Acute kidney failure, unspecified; I50.9 Heart failure, unspecified; I10 Essential (primary) hypertension; J44.9 Chronic obstructive pulmonary disease, unspecified; R06.02 Shortness of breath; Z20.822 Contact with and (suspected) exposure to COVID-19; Z99.81 Dependence on supplemental oxygen; Z79.4 Long term (current) use of insulin; Z79.899 Other long term (current) drug therapy
CPT/HCPCS: 36415; 80048; 81003; 82947; 83880; 84300; 85025; 87635; 93005; 96361; 96374; 99218; 99285; J0610

== ENCOUNTER 2022-03-14 18:50 | Inpatient (IN) | payer MEDICARE, MEDICAID, SELFPAY ==
--- NOTE | ~2022-03-14 | XR_ITS ---
EXAMINATION: XR CHEST CLINICAL INFORMATION: Dyspnea COMPARISON: 02/04/2022 TECHNIQUE: Frontal view of the chest was obtained. FINDINGS: Lung volumes are symmetric. There is increasing haziness in the bilateral lung bases compared to prior. Central vasculature and surrounding interstitium appear increased from prior. No evidence of pneumothorax. No significant pleural effusion. Cardiac silhouette remains enlarged. Calcification is present at the aortic arch. No acute osseous findings are seen. XR/XR chest 1V IMPRESSION: Increasing bibasilar haziness and central vascular congestion, suggesting developing edema in the proper clinical setting. Cardiac silhouette remains enlarged.
[2022-03-14 19:00] VITALS: BP 149/62; PULSE 83; RESP 30; TEMP 36.6; O2SAT 100; O2SAT 76; BMI 55.8
--- NOTE | 2022-03-14 19:01 | ECG_ITS ---
Test Reason : cp Blood Pressure : / mmHG Vent. Rate : 084 BPM Atrial Rate : 084 BPM P-R Int : 226 ms QRS Dur : 110 ms QT Int : 414 ms P-R-T Axes : 026 108 -11 degrees QTc Int : 489 ms Artifact in tracing Sinus rhythm with 1st degree A-V block Rightward axis T wave abnormality, consider inferior ischemia Abnormal ECG When compared with ECG of 15-FEB-2022 21:35, QRS axis Shifted right Referred By: Sherly Davis Electronically Signed By:HEATH JEONG
--- NOTE | 2022-03-14 19:03 | ED_ITS ---
HPI - SOB/Dyspnea General Chief Complaint: Dyspnea Stated Complaint: sob Time Seen by Provider: 03/14/22 19:01 Source: patient and EMS Mode of arrival: EMS Limitations: no limitations History of Present Illness HPI Narrative: This is a 72-year-old female past medical history significant for CLL, COPD on 4 L nasal cannula, CHF, diabetes, CKD, hyperlipidemia, hypertension, hypothyroidism, PVD, recent RSV infection a few weeks ago presents to the emergency department complaints of productive cough, shortness of breath x2 days worsening. Patient tells me that few weeks ago she tested positive for RSV and ever since then she has not been the same however over the past few days shortness of breath has been worsening. Patient was found to be 73% on her 4 L of nasal cannula, she was placed on CPAP by EMS arrives and is saturating in the low 90s, labored breathing, tripoding. She was speaking in full sentences and appeared very uncomfortable upon arrival. Actively coughing during my history taking. Denies chest pain, fevers, chills, nausea, vomiting, abdominal pain, headache, vision changes, dizziness, weakness. Related Data Home Medications Medication Instructions Recorded Confirmed aspirin 325 mg tablet 325 mg PO DAILY 10/08/21 02/16/22 chlordiazepoxide HCl 10 mg capsule 10 mg PO BEDTIME 10/08/21 02/16/22 citalopram 20 mg tablet 40 mg PO DAILY 10/08/21 02/16/22 docusate sodium 100 mg tablet 100 mg PO DAILY 10/08/21 02/16/22 hydroxychloroquine 200 mg tablet 200 mg PO BID 10/08/21 02/16/22 insulin lispro protamine-lispro 4 - 12 ea subcut TIDAC 10/08/21 02/16/22 100 unit/mL (75-25) subcutaneous pen levothyroxine 175 mcg tablet 175 mcg PO DAILY@0600 10/08/21 02/16/22 multivitamin 1 tab PO DAILY 10/08/21 02/16/22 simvastatin 20 mg tablet 20 mg PO BEDTIME 10/08/21 02/16/22 sitagliptin phosphate 100 mg 100 mg PO DAILY 10/08/21 02/16/22 tablet (Januvia) latanoprost 0.005 % eye drops 1 drp ophthalmic (eye) BEDTIME 11/20/21 02/16/22 albuterol sulfate 0.63 mg/3 mL 0.63 mg inhalation Q4-6H PRN 02/16/22 02/16/22 solution for nebulization Wheezing bisacodyl 10 mg rectal suppository 10 mg [place] DAILY PRN Constipation 02/16/22 02/16/22 brinzolamide 1 %-brimonidine 0.2 % 1 drp ophthalmic-Right BID 02/16/22 02/16/22 eye drops,suspension (Simbrinza) hpyjccavoi-wowwycqbyaviu-aggvbdhv 1 tab PO QID PRN Pain 02/16/22 02/16/22 50 mg-325 mg-40 mg tablet coenzyme Q10 100 mg capsule 50 mg PO DAILY 02/16/22 02/16/22 (CoQ-10) diclofenac sodium 1 % topical gel 2 g topical QID 02/16/22 02/16/22 insulin glargine 100 unit/mL (3 35 unit subcut BEDTIME 02/16/22 02/16/22 mL) subcutaneous pen (Lantus Solostar U-100 Insulin) magnesium oxide 400 mg PO DAILY 02/16/22 02/16/22 melatonin 5 mg tablet 5 mg PO BEDTIME PRN Sleep 02/16/22 02/16/22 metoprolol tartrate 50 mg tablet 50 mg PO BID 02/16/22 02/16/22 prednisolone acetate 1 % eye 1 drp ophthalmic-Right QID 02/16/22 02/16/22 drops,suspension riboflavin (vitamin B2) 400 mg 400 mg PO DAILY 02/16/22 02/16/22 tablet sennosides 8.6 mg tablet (senna) 8.6 mg PO BEDTIME PRN Constipation 02/16/22 02/16/22 sodium phosphates 19 gram-7 118 ml [place] DAILY PRN Constipation 02/16/22 02/16/22 gram/118 mL enema (Fleet Enema) timolol maleate 0.5 % eye drops 1 drp ophthalmic-Right BID 02/16/22 02/16/22 Previous Rx's Medication Instructions Recorded amlodipine 10 mg tablet 10 mg PO DAILY #30 tabs 10/16/21 nystatin 100,000 unit/gram topical 1 appl topical BID 7 days #30 grams 12/23/21 powder furosemide 40 mg tablet 40 mg PO DAILY #30 tabs 02/17/22 Allergies Allergy/AdvReac Type Severity Reaction Status Date / Time oxycodone [From Percocet] Allergy Intermediate Rash Verified 02/15/22 18:55 Review of Systems Review of Systems: Constitutional : No Weight loss, No Fever, No Chills, + Fatigue, + Malaise ENT/Mouth : No sore throat, No Rhinorrhea Eyes: No Eye Pain, No Swelling, No Redness Cardiovascular : No Chest Pain, + SOB, No Dyspnea on Exertion, No Orthopnea, No Edema, No Palpitations Respiratory : + Cough, + Sputum, No Wheezing Gastrointestinal : No Nausea, No Vomiting, No Diarrhea, No Constipation, No abdominal Pain, No Hematochezia, No Melena Genitourinary : No Dysuria, No Urinary Frequency, No Hematuria, Musculoskeletal : No joint pain, No Myalgias, No Joint Swelling Skin : No Skin Lesions, No rash Neuro : No Weakness, No Numbness, No Dizziness, No Headache Psych : No Anxiety/Panic, No Depression All other systems reviewed and are negative Yes all other systems are reviewed and are negative [facility] Past Medical History Attestation statement: The following information was validated with the patient. Source: old records reviewed and nursing notes reviewed Medical History CKD (chronic kidney disease) Congestive heart failure COVID Diabetes mellitus with insulin therapy Essential hypertension HLD (hyperlipidemia) HTN (hypertension) Hypothyroidism Infection with ESBL Klebsiella oxytoca Klebsiella pneumonia Lower extremity edema Lymphadenopathy, mediastinal Migraine Obesity Pleural effusion Pseudotumor cerebri PVD (peripheral vascular disease) Suspected deep tissue injury Surgical History H/O cataract extraction H/O hysterectomy for benign disease Hx of cholecystectomy S/P appendectomy Family History Family History Mother Heart attack, Onset Age: 92 Father Heart attack, Onset Age: 66 Other Diabetes Social History Social History Housing: Assisted Living Facility Alcohol intake: never Patient Tobacco Use Status: Never used Tobacco Advance Directives: Yes Advance Directives on File: Yes Advance Directives Date on File: 09/26/20 service: No Current occupational status: disabled Physical Exam Vital Signs: Vital Signs: Last Vital Signs Temp 99.0 F 03/14/22 22:25 Pulse 81 03/14/22 22:25 Resp 21 H 03/14/22 22:25 BP 143/55 H 03/14/22 22:25 Pulse Ox 95 03/14/22 22:25 O2 Del Method 03/14/22 22:25 O2 Flow Rate 4 03/14/22 22:25 BMI result Body Mass Index 55.8 Patient noted to have tachypnea and labored breathing upon arrival Appearance: Alert.? Oriented X3. Moderate respiratory distress Head: Normocephalic, atraumatic, no step-offs or deformities Eyes: Pupils equal, round and reactive to light.? ENT: Pharynx normal.? Neck: Normal inspection.? Neck supple.? CVS: Normal heart rate and rhythm.? Pulses normal.? Respiratory: Moderate respiratory distress.? Breath sounds diminished bilaterally with shallow breathing. Intercostal muscles used for breathing with tracheal tugging and patient in tripod position on arrival. Abdomen: Soft and nontender.? Skin: Skin warm and dry.? Normal skin color.? Normal skin turgor.? Extremities: No lower extremity edema.? No calf ttp. 5/5 strength to bilateral upper and lower extremities Neuro: Oriented X 3.? No motor deficit.? No sensory deficit. CN 2-12 intact Course Reevaluation(s) Reevaluation #1: Still having difficulty obtaining access on patient. My attending is in trying to do a ultrasound-guided line. Patient appears comfortable appears better than she did when she 1st arrived to the department. Saturating 99%. Time: 20:21 Reevaluation #2: Line was initiated. Basic labs obtained. Patient noted to have leukocytosis 18, and a normocytic anemia. Chemistry with no acute electrolyte abnormalities requiring intervention. Patient's BUN slightly elevated likely secondary to dehydration. Lactic acid negative. BNP elevated 730, will give Lasix. Troponin 16.7 will obtain 2nd troponin at a later time. UA without infection. Patient positive for influenza. Now on nasal cannula saturating 97%. Breath sounds improved bilaterally. Time: 22:00 Reevaluation #3: Patient noted to be positive for influenza A. At this time patient will be admitted to the hospital for further intervention and treatment. Patient looks and feels much better after DuoNeb, magnesium, Solu-Medrol and ceftriaxone. Patient doing well with nasal cannula on 4 L. Medications Administered Discontinued Medications Generic Name Dose Route Start Last Admin Trade Name Ronny PRN Reason Stop Dose Admin Albuterol/Ipratropium 3 ml 03/14/22 20:12 03/14/22 20:28 Albuterol/Iprat 2.5/0.5mg 3 Ml Ampul.Neb INHALE 03/14/22 20:13 3 ml ONCE ONE Administration Furosemide 40 mg 03/14/22 21:09 03/14/22 22:23 Furosemide 40 Mg/4 Ml Vial IVPUSH 03/14/22 21:10 40 mg ONCE ONE Administration Protocol Ceftriaxone Sodium 1 gm/ 50 mls @ 100 mls/hr 03/14/22 20:16 03/14/22 22:25 Sodium Chloride IV 03/14/22 20:45 Infused ONCE ONE Infusion Magnesium Sulfate 2 gm in 50 mls @ 25 mls/hr 03/14/22 20:18 03/14/22 20:47 Magnesium Sulfate/H2o IV 03/14/22 22:17 25 mls/hr ONCE ONE Administration Methylprednisolone Sodium Succinate 125 mg 03/14/22 20:18 03/14/22 20:47 Methylprednisolone Sod Succ 125 Mg/2 Ml Vial IVPUSH 03/14/22 20:19 125 mg ONCE ONE Administration Medical Decision Making Medical Decision Making [facility] Narrative: 1900 72-year-old female presents for shortness of breath, cough that is productive of yellow/green sputum x2 days. Recently RSV positive. Physical exam with moderate respiratory distress.? Breath sounds diminished bilaterally with shallow breathing. Intercostal muscles used for breathing with tracheal tugging and patient in tripod position on arrival. Patient was noted to be 73% on home oxygen when EMS arrived she was placed on a CPAP Concerns for possible post infectious pneumonia or new viral infection. Blood cultures, lactic acid ordered. Concerns for infection. Unlikely that this is PE. Plan labs, blood cultures, lactic, BNP, Patient very difficult stick, multiple nursing staff members have tried, techs without success. Delay in obtaining labs Discharge Plan Discharge Clinical Impression: Influenza A, Hypoxia Patient Disposition: Admitted As Inpatient
[2022-03-14 19:17] VITALS: RESP 33; O2SAT 99
--- OUTSIDE RECORDS SUMMARY | 2022-03-14 20:08 | XMS_ITS ---
[...] Lf/0.5 mL Completed ? 02/06/2020 intramuscular syringe dythhygffs-fxmcgthgxeaev-gseyicev 50 mg-325 mg-40 mg tablet Acti ve [...] Cataract Surgery Information not avai lable 04/04/1990 SITE SAFETY COORDINATOR Shunt Placement Information not avai lable ? Tubal Ligation Information not avai lable ? Cholecystectomy Information not avai lable ? Appendectomy Information not avai lable ? Total Hysterectomy Information not avai lable Results Lab Results Date Name Specimen Result Interpretation Description Value Range Status Address ? 04/21/2021 HbA1C (Hemoglobin ? No observation ? ? ? [facility] a1C), Blood recorded. Ce nter (Medical Records): [address] [facility] 05/28/2020 CBC W/ Auto Diff ? No observation ? ? ? [facility] recorded. Center (Medical Records): [facility] 05/28/2020 HbA1C (Hemoglobin ? No observation ? ? ? [facility] a1C), Blood recorded. nt (Medical Records): [address], [place] 05/28/2020 TSH + Free T4, ? No observation ? ? ? [facility] Serum recorded. [place] (Medical Records): [address], [place] 05/28/2020 CMP, Serum or ? No observation ? ? ? [facility] Plasma recorded. [place] (Medical Records): [address], [place] 01/22/2020 LDL, Serum ? Ldl 90 ? ? 01/22/2020 HbA1C (Hemoglobin ? A1C 7.1 ? ? a1C), Blood 11/16/2019 LDL, Serum ? Ldl 109 ? ? 11/16/2019 HbA1C (Hemoglobin ? A1C 9.1 ? ? a1C), Blood 11/12/2019 HbA1C (Hemoglobin ? No observation ? ? ? [facility] a1C), Blood recorded. [facility] Laboratory : [address], [place] 11/12/2019 TSH + Free T4, ? No observation ? ? ? [facility] Serum recorded. [place] [facility] : [address], [place] 11/12/2019 Lipid Panel, Blood ? No observation ? ? ? [facility] recorded. [facility] : [address], [place] 11/12/2019 CMP, Serum or ? No observation ? ? ? [facility] Plasma recorded. [facility] : [address], [place] 02/27/2019 Fecal Occult ? No observation ? ? ? Blood, Stool recorded. 01/26/2019 Microalbumin, ? No observation ? ? ? [facility] Urine recorded. [facility] : [address], [place] 01/26/2019 TSH + Free T4, ? No observation ? ? ? [facility] Serum recorded. [facility] : [address], [place] 01/26/2019 Lipid Panel, Serum ? No observation ? ? ? [facility] recorded. [facility] : [address], [place] 01/26/2019 Glycohemoglobin, ? No observation ? ? ? [facility] Total, Blood recorded. [facility] Laboratory : [address], [place] 01/26/2019 CMP, Serum or ? No observation ? ? ? [facility] Plasma recorded. [facility] : [address], [place] 01/26/2019 LDL, Serum ? Ldl 88 ? ? 12/10/2017 LDL, Serum ? Ldl 90 ? ? 12/10/2017 HbA1C (Hemoglobin ? A1C 7.7 ? ? a1C), Blood 11/04/2017 CBC W/ Diff ? No observation ? ? ? [facility] recorded. [facility] : [address], [place] 09/19/2017 Cbc ? No observation ? ? ? [facility] recorded. Center Laboratory : [address], [place] 09/19/2017 CMP, Serum or ? No observation ? ? ? [facility] Plasma recorded. [facility] : [address], [place] 08/19/2017 Microalbumin/creat ? No observation ? ? ? [facility] inine, Ratio recorded. C enter Panel, Urine Labo ratory: [address], [place] 08/19/2017 Cbc ? No observation ? ? ? [facility] recorded. Center Laboratory : [address], [place] 08/19/2017 Glycohemoglobin, ? No observation ? ? ? [facility] Total, Blood recorded. C enter Laboratory : [address], [place] 08/19/2017 Lipid Panel, Serum ? No observation ? ? ? [facility] recorded. [facility] : [address], [place] 08/19/2017 CMP, Serum or ? No observation ? ? ? [facility] Plasma recorded. [facility] : [address], [place] 05/13/2017 HbA1C (Hemoglobin ? A1C 10.7 ? ? a1C), Blood Past Encounters Encounter Date Diagnosis Provider 10/26/2021 Hypoglycemia Renae Russell, [facility] [place] [address], Ph. 04/29/2021 Diabetes Mellitus; Morbid Obesity; Tam Corea, DO: 6 [place] Depressive Disorder; [facility] [place] Dermatitis and Venous Ulcer of Lower [phone], Ph. Extremity Due to Chronic Peripheral Venous Hypertension; Insulin Treated Type 2 Diabetes Mellitus; Migraine without Aura; Normal Pressure Hydrocephalus; Chronic Kidney Disease Stage 2; Pre-existing Type 2 Diabetes Mellitus; Hypothyroidism; Renewal of Prescription 09/29/2020 Pre-surgery Evaluation Tam Corea , DO: 6 [facility] Susan Webb [facility] [place] [address], Ph. [phone] Social History Tobacco Smoking Status Former Smoker [...]
[2022-03-14] MEDS: Albuterol/Iprat 2.5/0.5MG 3 ML AMPUL.NEB INHALE (20:28)
[2022-03-14 20:32] VITALS: PULSE 83; RESP 30; O2SAT 97
[2022-03-14 20:32] LABS: MANUAL DIFF FLAG NO
[2022-03-14] MEDS: methylPREDNISolone Sod Succ 125 MG/2 ML VIAL IVPUSH (20:47)
[2022-03-14] MEDS: Magnesium Sulfate/H2O 2 GM/50 ML PIGGYBACK IV (20:47)
[2022-03-14] MEDS: cefTRIAXone sodium 1 GM in 0.9 % Sodium Chloride 50 ML IV (20:47)
[2022-03-14 20:52] LABS: VBG Base Excess 8.6 mmol/L; VBG HCO3 34 mmol/L (22-26); VBG pCO2 50 mmHg; VBG pH 7.43 (7.32-7.43); VBG pO2 84 mmHg
[2022-03-14 20:54] LABS: Venous Blood Gas Refer to POC result
[2022-03-14 20:54] LABS: Lactic Acid 0.6 mmol/L (0.5-2.0)
[2022-03-14 20:59] LABS: Alanine Aminotransferase 8 U/L (0-31); Albumin Level 3.3 g/dL (3.5-5.0); Alkaline Phosphatase 78 U/L (39-117); Anion Gap 15 (12-20); Aspartate Amino Transferase 12 U/L (5-31); Bilirubin Total 0.4 mg/dL (0.0-1.0); Blood Urea Nitrogen 26 mg/dL (9-16); Carbon Dioxide 31 mmol/L (22-29); Chloride 95 mmol/L (96-108); Estimated Glomerular Filt Rate 48; Glucose Random 338 mg/dL (60-115); Magnesium 2.2 mg/dL (1.6-2.6); Potassium 4.5 mmol/L (3.3-5.1); Sodium 136 mmol/L (135-145); Total Protein 6.9 g/dL (6.5-8.0)
[2022-03-14 21:01] LABS: Basophils Absolute Auto 0.1 X10*3/uL (0.0-0.2); Basophils Percent Auto 0.7 % (0-2); Eosinophils Absolute Auto 0.7 X10*3/uL (0.0-0.4); Eosinophils Percent Auto 3.9 % (0-4); Hematocrit 35.7 % (37.0-47.0); Hemoglobin 11.2 g/dl (12.0-16.0); Imm Gran Abs Auto 0.09 X10*3/uL (0.00-0.03); Imm Gran Pct Auto 0.5 % (0.0-0.4); Lymphocytes Absolute Auto 0.6 X10*3/uL (1.2-4.9); Lymphocytes Percent Auto 3.4 % (20-40); Mean Corpuscular HGB Conc 31.4 g/dl (31.0-35.0); Mean Corpuscular Hemoglobin 27.6 pg (27.0-33.0); Mean Corpuscular Volume 87.9 fL (80.0-98.0); Mean Platelet Volume 11.7 fL (9.4-12.3); Monocytes Percent Auto 5.7 % (2-11); Neutrophils Absolute Auto 15.5 x10*3/uL (2.0-8.3); Neutrophils Percent Auto 85.8 % (45-73); Platelet Count 245 X10*3/uL (160-400); Red Blood Count 4.06 X10*6/uL (4.20-5.50); Red Cell Distribution Width 14.7 % (11.0-16.0)
[2022-03-14 21:04] LABS: COVID-19 Test Negative (Negative); IDNOW Serial# BCCEAD1C
[2022-03-14 21:04] LABS: B Type Natriuretic Peptide 730 pg/mL (<100)
[2022-03-14 21:06] LABS: Troponin-I High Sensitivity 16.7 ng/L (<3.5-17.0)
[2022-03-14 21:11] LABS: Appearance Urine Clear; Color Urine Yellow; Glucose Urine UA 500 mg/dL (Negative); Leukocyte Esterase Urine Negative (Negative); Nitrite Urine Negative (Negative); PH 6.5 (5.0-9.0); Urine Blood Negative (Negative); Urine Ketones Negative (Negative); Urine Protein Trace mg/dL (Neg-Trace)
[2022-03-14 21:23] VITALS: BP 139/57; PULSE 80; RESP 20; TEMP 36.9; O2SAT 96
[2022-03-14 21:48] LABS: Influenza A PCR POSITIVE (Negative); Influenza B PCR NEGATIVE (Negative); Resp Syncy Virus RNA Qual PCR NEGATIVE (Negative); SARS COV2 PCR INHOUSE NEGATIVE (Negative)
[2022-03-14] MEDS: Furosemide 40 MG/4 ML VIAL IVPUSH (22:23)
[2022-03-14 22:25] VITALS: BP 143/55; PULSE 81; RESP 21; TEMP 37.2; O2SAT 95
[2022-03-14 23:32] LABS: Troponin-I High Sensitivity 21.8 ng/L (<3.5-17.0)
[2022-03-14 23:56] VITALS: BP 135/48; PULSE 77; RESP 25; TEMP 37.4; O2SAT 97
[2022-03-15] VITALS (8 sets, daily range): BP systolic 150–174; BP diastolic 48–72; PULSE 17–88; RESP 17–25; TEMP 36.1–37.2; O2SAT 96–99
--- NOTE | 2022-03-15 00:08 | P.HPHOSP_ITS ---
History of Present Illness Date of Service: 03/15/22 Chief Complaint: Dyspnea This is a 72-year-old female with pertinent history of chronic hypoxemic respiratory failure due to COPD on 2 L supplemental oxygen, chronic diastolic heart failure, chronic kidney disease, insulin-dependent diabetes mellitus, essential hypertension, hypothyroidism, mood disorder, mixed hyperlipidemia, CLL who presents to the emergency department for evaluation of dyspnea. Patient states it started 2 days prior to presentation. It has been progressive and associated with wheezing. Also has been having cough with significant sputum production, fevers and chills. Patient was found to be 73% on her baseline 2 L supplemental oxygen and was placed on CPAP initially. Her initially but breathing improved with CPAP and she was weaned down to 4 L supplemental oxygen. She denies chest discomfort, palpitations, abdominal pain, changes in urinary or bowel habits. Review of Systems Constitutional: Constitutional: Reports chills, Reports lethargy and Reports malaise Cardiovascular: Cardiovascular: Reports no additional cardiovascular complaints and Reports dyspnea on exertion Respiratory: Respiratory: Reports cough, Reports dyspnea on exertion and Reports wheezing Gastrointestinal: Gastrointestinal: Reports no additional gastrointestinal complaints Genitourinary: Genitourinary: Reports no additional female genitourinary complaints Allergic/Immunologic: Allergic/Immunologic: Reports wheezing [facility] Medical History (Updated 03/15/22 @ 00:16 by Jaja Hand MD) CKD (chronic kidney disease) Congestive heart failure COVID Diabetes mellitus with insulin therapy Essential hypertension HLD (hyperlipidemia) HTN (hypertension) Hypothyroidism Infection with ESBL Klebsiella oxytoca Klebsiella pneumonia Lower extremity edema Lymphadenopathy, mediastinal Migraine Obesity Pleural effusion Pseudotumor cerebri PVD (peripheral vascular disease) Suspected deep tissue injury Family History Mother Heart attack, Onset Age: 92 Father Heart attack, Onset Age: 66 Other Diabetes Surgical History H/O cataract extraction H/O hysterectomy for benign disease Hx of cholecystectomy S/P appendectomy Social History Housing: Assisted Living Facility Alcohol intake: never Patient Tobacco Use Status: Never used Tobacco Advance Directives: Yes Advance Directives on File: Yes Advance Directives Date on File: 09/26/20 service: No Current occupational status: disabled Meds Allergies Allergy/AdvReac Type Severity Reaction Status Date / Time oxycodone [From Percocet] Allergy Intermediate Rash Verified 02/15/22 18:55 Active Medications: Current Medications Acetaminophen (Acetaminophen 325 Mg Tablet) 650 mg PO Q6H PRN PRN Reason: Pain, Mild (Pain Scale 1-3) Albuterol/Ipratropium (Albuterol/Iprat 2.5/0.5mg 3 Ml Ampul.Neb) 3 ml INHALE RQ4H WHILE AWAKE ALAN Albuterol/Ipratropium (Albuterol/Iprat 2.5/0.5mg 3 Ml Ampul.Neb) 3 ml INHALE RQ4H PRN PRN Reason: wheezing Dextrose (Dextrose 50 % 25 Gm/50 Ml Syringe) 25 gm IVPUSH Q15M PRN; Protocol PRN Reason: per Hypoglycemia Standing Ord. Enoxaparin Sodium (Enoxaparin Sodium 40 Mg/0.4 Ml Syringe) 40 mg SUBCUT Q24H ALAN Glucose (Glucose Gel 15 Gm Gel..Gram.) 15 gm PO Q15M PRN; Protocol PRN Reason: per Hypoglycemia Standing Ord. Insulin Human Lispro (Insulin Lispro 100 Unit/Ml 3 Ml Vial) 0 unit SUBCUT QIDACHS [facility]; Protocol Melatonin (Melatonin 3 Mg Tablet) 6 mg PO BEDTIME PRN PRN Reason: Insomnia Methylprednisolone Sodium Succinate (Methylprednisolone Sod Succ 40 Mg/Ml Vial) 40 mg IVPUSH Q12H ALNA Ondansetron HCl (Ondansetron Hcl 4 Mg/2 Ml Vial) 4 mg IVPUSH Q8H PRN PRN Reason: Nausea and Vomiting Pharmacy Consult (Consult Rx Perform Med Rec) 1 each MISCELLANE ONCE PRN PRN Reason: Consult order Sodium Chloride (0.9 % Sodium Chloride Flush 3 Ml Syringe) 3 ml IVFLUSH QSHIFT [facility] Home Medications Medication Instructions Recorded Confirmed Last Taken Type aspirin 325 mg tablet 325 mg PO DAILY 10/08/21 02/16/22 Unknown History chlordiazepoxide HCl 10 mg capsule 10 mg PO BEDTIME 10/08/21 02/16/22 Unknown History citalopram 20 mg tablet 40 mg PO DAILY 10/08/21 02/16/22 Unknown History docusate sodium 100 mg tablet 100 mg PO DAILY 10/08/21 02/16/22 Unknown History hydroxychloroquine 200 mg tablet 200 mg PO BID 10/08/21 02/16/22 Unknown History insulin lispro protamine-lispro 4 - 12 ea subcut TIDAC 10/08/21 02/16/22 Unknown History 100 unit/mL (75-25) subcutaneous pen levothyroxine 175 mcg tablet 175 mcg PO DAILY@0600 10/08/21 02/16/22 Unknown History multivitamin 1 tab PO DAILY 10/08/21 02/16/22 Unknown History simvastatin 20 mg tablet 20 mg PO BEDTIME 10/08/21 02/16/22 Unknown History sitagliptin phosphate 100 mg 100 mg PO DAILY 10/08/21 02/16/22 Unknown History tablet (Januvia) latanoprost 0.005 % eye drops 1 drp ophthalmic (eye) BEDTIME 11/20/21 02/16/22 Unknown History albuterol sulfate 0.63 mg/3 mL 0.63 mg inhalation Q4-6H PRN 02/16/22 02/16/22 Unknown History solution for nebulization Wheezing bisacodyl 10 mg rectal suppository 10 mg PA DAILY PRN Constipation 02/16/22 02/16/22 Unknown History brinzolamide 1 %-brimonidine 0.2 % 1 drp ophthalmic-Right BID 02/16/22 02/16/22 Unknown History eye drops,suspension (Simbrinza) miagnidkwh-iyzshjvvwpzjk-gbtfuuut 1 tab PO QID PRN Pain 02/16/22 02/16/22 U nknown History 50 mg-325 mg-40 mg tablet coenzyme Q10 100 mg capsule 50 mg PO DAILY 02/16/22 02/16/22 Unknown History (CoQ-10) diclofenac sodium 1 % topical gel 2 g topical QID 02/16/22 02/16/22 Unknown History insulin glargine 100 unit/mL (3 35 unit subcut BEDTIME 02/16/22 02/16/22 Unknown History mL) subcutaneous pen (Lantus Solostar U-100 Insulin) magnesium oxide 400 mg PO DAILY 02/16/22 02/16/22 Unknown History melatonin 5 mg tablet 5 mg PO BEDTIME PRN Sleep 02/16/22 02/16/22 Unknown History metoprolol tartrate 50 mg tablet 50 mg PO BID 02/16/22 02/16/22 Unknown History prednisolone acetate 1 % eye 1 drp ophthalmic-Right QID 02/16/22 02/16/22 Unknown History drops,suspension riboflavin (vitamin B2) 400 mg 400 mg PO DAILY 02/16/22 02/16/22 Unknown History tablet sennosides 8.6 mg tablet (senna) 8.6 mg PO BEDTIME PRN Constipation 02/16/22 02/16/22 Unknown History sodium phosphates 19 gram-7 118 ml PA DAILY PRN Constipation 02/16/22 02/16/22 Unknown History gram/118 mL enema (Fleet Enema) timolol maleate 0.5 % eye drops 1 drp ophthalmic-Right BID 02/16/22 02/16/22 Unknown History Physical Exam Vital Signs and Narrative: Vital Signs: Last Vital Signs Temp 99.4 F 03/14/22 23:56 Pulse 77 03/14/22 23:56 Resp 25 H 03/14/22 23:56 BP 135/48 L 03/14/22 23:56 Pulse Ox 97 03/14/22 23:56 O2 Del Method 03/14/22 23:56 O2 Flow Rate 4 03/14/22 23:56 BMI result Body Mass Index 55.8 Middle-aged female lying in bed in mild distress on 4 L supplemental oxygen Neck supple Regular rate and rhythm, S1-S2 heard Bilateral wheezing appreciated Abdomen soft nontender, no guarding, no rigidity Patient is awake, alert and oriented to place and person ; no focal motor deficit Results Labs CBC and Chem 7: 03/14/22 20:26 03/14/22 20:26 Labs: Laboratory Results - last 24 hr 03/14/22 03/14/22 03/14/22 20:26 20:26 20:26 MCV 87.9 MCH 27.6 MCHC 31.4 RDW 14.7 Plt Count 245 D MPV 11.7 Immature Gran % (Auto) 0.5 H Neut % (Auto) 85.8 H Lymph % (Auto) 3.4 L [place] % (Auto) 5.7 Eos % (Auto) 3.9 Baso % (Auto) 0.7 Lymph # (Auto) 0.6 L [place] # (Auto) 1.0 Eos # (Auto) 0.7 H Baso # (Auto) 0.1 Abs Immat Gran (auto) 0.09 H Absolute Neuts (auto) 15.5 H Absolute Nucleated RBC 0.000 Nucleated RBC % (auto) 0.0 VBG pH VBG pCO2 VBG pO2 VBG HCO3 VBG O2 Saturation VBG Base Excess Anion Gap 15 Estim Creat Clear Calc 65.0 Estimated GFR 48 Random Glucose 338 H Lactic Acid Calcium 9.0 Magnesium 2.2 Total Bilirubin 0.4 AST 12 ALT 8 Alkaline Phosphatase 78 Troponin I High Sens 16.7 B-Natriuretic Peptide Total Protein 6.9 Albumin 3.3 L Urine Color Urine Appearance Urine pH Ur Specific [place] Urine Protein Urine Glucose (UA) Urine Ketones Urine Blood Urine Nitrite Ur Leukocyte Esterase COVID-19 (DENY) COVID-19 Clin Com Influenza Type A (PCR) Influenza Type B (PCR) RSV RNA Qual (PCR) SARS-CoV-2 RNA (RT-PCR) 03/14/22 03/14/22 03/14/22 20:26 20:27 20:27 MCV MCH MCHC RDW Plt Count MPV Immature Gran % (Auto) Neut % (Auto) Lymph % (Auto) [place] % (Auto) Eos % (Auto) Baso % (Auto) Lymph # (Auto) [place] # (Auto) Eos # (Auto) Baso # (Auto) Abs Immat Gran (auto) Absolute Neuts (auto) Absolute Nucleated RBC Nucleated RBC % (auto) VBG pH VBG pCO2 VBG pO2 VBG HCO3 VBG O2 Saturation VBG Base Excess Anion Gap Estim Creat Clear Calc Estimated GFR Random Glucose Lactic Acid 0.6 Calcium Magnesium Total Bilirubin AST ALT Alkaline Phosphatase Troponin I High Sens B-Natriuretic Peptide 730 H Total Protein Albumin Urine Color Urine Appearance Urine pH Ur Specific [place] Urine Protein Urine Glucose (UA) Urine Ketones Urine Blood Urine Nitrite Ur Leukocyte Esterase COVID-19 (DENY) Negative COVID-19 Clin Com See Note Influenza Type A (PCR) Influenza Type B (PCR) RSV RNA Qual (PCR) SARS-CoV-2 RNA (RT-PCR) 03/14/22 03/14/22 03/14/22 20:43 20:59 21:02 MCV MCH MCHC RDW Plt Count MPV Immature Gran % (Auto) Neut % (Auto) Lymph % (Auto) [place] % (Auto) Eos % (Auto) Baso % (Auto) Lymph # (Auto) [place] # (Auto) Eos # (Auto) Baso # (Auto) Abs Immat Gran (auto) Absolute Neuts (auto) Absolute Nucleated RBC Nucleated RBC % (auto) VBG pH 7.43 VBG pCO2 50 VBG pO2 84 VBG HCO3 34 H VBG O2 Saturation 98.0 VBG Base Excess 8.6 Anion Gap Estim Creat Clear Calc Estimated GFR Random Glucose Lactic Acid Calcium Magnesium Total Bilirubin AST ALT Alkaline Phosphatase Troponin I High Sens B-Natriuretic Peptide Total Protein Albumin Urine Color Yellow Urine Appearance Clear Urine pH 6.5 Ur Specific [place] 1.010 Urine Protein Trace Urine Glucose (UA) 500 H Urine Ketones Negative Urine Blood Negative Urine Nitrite Negative Ur Leukocyte Esterase Negative COVID-19 (DENY) COVID-19 Clin Com Influenza Type A (PCR) POSITIVE A Influenza Type B (PCR) NEGATIVE RSV RNA Qual (PCR) NEGATIVE SARS-CoV-2 RNA (RT-PCR) NEGATIVE 03/14/22 22:55 MCV MCH MCHC RDW Plt Count MPV Immature Gran % (Auto) Neut % (Auto) Lymph % (Auto) [place] % (Auto) Eos % (Auto) Baso % (Auto) Lymph # (Auto) [place] # (Auto) Eos # (Auto) Baso # (Auto) Abs Immat Gran (auto) Absolute Neuts (auto) Absolute Nucleated RBC Nucleated RBC % (auto) VBG pH VBG pCO2 VBG pO2 VBG HCO3 VBG O2 Saturation VBG Base Excess Anion Gap Estim Creat Clear Calc Estimated GFR Random Glucose Lactic Acid Calcium Magnesium Total Bilirubin AST ALT Alkaline Phosphatase Troponin I High Sens 21.8 H D B-Natriuretic Peptide Total Protein Albumin Urine Color Urine Appearance Urine pH Ur Specific [place] Urine Protein Urine Glucose (UA) Urine Ketones Urine Blood Urine Nitrite Ur Leukocyte Esterase COVID-19 (DENY) COVID-19 Clin Com Influenza Type A (PCR) Influenza Type B (PCR) RSV RNA Qual (PCR) SARS-CoV-2 RNA (RT-PCR) Assessment and Plan (1) Hypoxia: Status: Acute (2) Influenza A: Status: Acute (3) CLL (chronic lymphocytic leukemia): Status: Chronic (4) Congestive heart failure: Status: Acute (5) Diabetes mellitus with insulin therapy: Status: Acute (6) Obesity: Status: Acute Plan This is a 72-year-old female with pertinent history of chronic hypoxemic respiratory failure due to COPD on 2 L supplemental oxygen, chronic diastolic heart failure, chronic kidney disease, insulin-dependent diabetes mellitus, essential hypertension, hypothyroidism, mood disorder, mixed hyperlipidemia, CLL who presents to the emergency department for evaluation of dyspnea. #. Acute on chronic hypoxemic respiratory failure secondary to: #. Acute exacerbation of COPD in the setting of Influenza A with bacterial superinfection -will admit patient with scheduled and p.r.n. DuFloridabs. Initiating Tamiflu. Currently on 4 L supplemental oxygen, monitor and wean as tolerated. At home baseline 2 L -concern for bacterial superinfection, continue empiric antibiotic #. Mild decompensation of diastolic heart failure: Received IV lasix in the ER. May resume home po dose. Strict Is and Os #. Elevated troponin: Likely type 2 in the setting of increased amount. #. Insulin-dependent type 2 diabetes mellitus with hyperglycemia: Continue home basal regimen. Initiate Accu-Cheks with sliding scale insulin #. Hypothyroidism: Continue Synthroid #. Mood disorder: Continue citalopram #. Essential hypertension: Continue home p.o. antihypertensives #. Mixed hyperlipidemia: On statin Med rec pending DVT prophylaxis: Lovenox 40 mg daily Full code Diabetic diet Admit as inpatient and will require two night minimum hospital stay for supplemental oxygen Time Spent With Patient Time: Total time managing care of this patient today ____ minutes. Quality Stroke Does the patient have a stroke diagnosis?: No VTE Prior VTE?: No VTE Risk Level:: Medical - moderate - high VTE Device Contraindication: Treatment Not Indicated VTE Drug Contraindication: N/A - Med Ordered
--- OUTSIDE RECORDS SUMMARY | 2022-03-15 00:13 | XMS_ITS ---
[...] Lf/0.5 mL Completed ? 02/06/2020 intramuscular syringe mdkfpxlenw-kcjarbjdliifg-dxrhvupo 50 mg-325 mg-40 mg tablet Acti ve [...] Cataract Surgery Information not avai lable 04/04/1990 MAGAZINE EDITOR Shunt Placement Information not avai lable ? Tubal Ligation Information not avai lable ? Cholecystectomy Information not avai lable ? Appendectomy Information not avai lable ? Total Hysterectomy Information not avai lable Results Lab Results Date Name Specimen Result Interpretation Description Value Range Status Address ? 04/21/2021 HbA1C (Hemoglobin ? No observation ? ? ? [facility] a1C), Blood recorded. Ce nter (Medical Records): [address] [facility] 05/28/2020 CBC W/ Auto Diff ? No observation ? ? ? [facility] recorded. Center (Medical Records): [address] [facility] 05/28/2020 HbA1C (Hemoglobin ? No observation ? ? ? [facility] a1C), Blood recorded. nt (Medical Records): [address], [place] 05/28/2020 TSH + Free T4, ? No observation ? ? ? [facility] Serum recorded. [place] (Medical Records): [address], [place] 05/28/2020 CMP, Serum or ? No observation ? ? ? [facility] Plasma recorded. [facility] [place] (Medical Records): [address], [place] 01/22/2020 LDL, Serum ? Ldl 90 ? ? 01/22/2020 HbA1C (Hemoglobin ? A1C 7.1 ? ? a1C), Blood 11/16/2019 LDL, Serum ? Ldl 109 ? ? 11/16/2019 HbA1C (Hemoglobin ? A1C 9.1 ? ? a1C), Blood 11/12/2019 HbA1C (Hemoglobin ? No observation ? ? ? [facility] a1C), Blood recorded. [facility] Laboratory : [address], [place] 11/12/2019 TSH + Free T4, ? No observation ? ? ? [facility] Serum recorded. [facility] : [address], [place] 11/12/2019 Lipid Panel, Blood ? No observation ? ? ? [facility] recorded. [facility] : [address], [place] 11/12/2019 CMP, Serum or ? No observation ? ? ? [facility] Plasma recorded. [facility] : [address], [place] 02/27/2019 Fecal Occult ? No observation ? ? ? Blood, Stool recorded. 01/26/2019 Microalbumin, ? No observation ? ? ? [facility] Urine recorded. [facility] : [address], [place] 01/26/2019 TSH + Free T4, ? No observation ? ? ? [facility] Serum recorded. [facility] : [address], [place] 01/26/2019 Lipid Panel, Serum ? No observation ? ? ? [facility] recorded. [facility] : [address], [place] 01/26/2019 Glycohemoglobin, ? No observation ? ? ? [facility] Total, Blood recorded. [facility] Laboratory : [address], [place] 01/26/2019 CMP, Serum or ? No observation ? ? ? [facility] Plasma recorded. [facility] : [address], [place] 01/26/2019 LDL, Serum ? Ldl 88 ? ? 12/10/2017 LDL, Serum ? Ldl 90 ? ? 12/10/2017 HbA1C (Hemoglobin ? A1C 7.7 ? ? a1C), Blood 11/04/2017 CBC W/ Diff ? No observation ? ? ? [facility] recorded. [facility] : [address], [place] 09/19/2017 Cbc ? No observation ? ? ? [facility] recorded. Center Laboratory : [address], [place] 09/19/2017 CMP, Serum or ? No observation ? ? ? [facility] Plasma recorded. [facility] : [address], [place] 08/19/2017 Microalbumin/creat ? No observation ? ? ? [facility] inine, Ratio recorded. C enter Panel, Urine Labo ratory: [address], [place] 08/19/2017 Cbc ? No observation ? ? ? [facility] recorded. Center Laboratory : [address], [place] 08/19/2017 Glycohemoglobin, ? No observation ? ? ? [facility] Total, Blood recorded. C enter Laboratory : [address], [place] 08/19/2017 Lipid Panel, Serum ? No observation ? ? ? [facility] recorded. [facility] : [address], [place] 08/19/2017 CMP, Serum or ? No observation ? ? ? [facility] Plasma recorded. [facility] : [address], [place] 05/13/2017 HbA1C (Hemoglobin ? A1C 10.7 ? ? a1C), Blood Past Encounters Encounter Date Diagnosis Provider 10/26/2021 Hypoglycemia Renae Russell, [facility] [place] [address], Ph. 04/29/2021 Diabetes Mellitus; Morbid Obesity; Tam Corea, DO: 6 [place] Depressive Disorder; [facility] [place] Dermatitis and Venous Ulcer of Lower [phone], Ph. Extremity Due to Chronic Peripheral Venous Hypertension; Insulin Treated Type 2 Diabetes Mellitus; Migraine without Aura; Normal Pressure Hydrocephalus; Chronic Kidney Disease Stage 2; Pre-existing Type 2 Diabetes Mellitus; Hypothyroidism; Renewal of Prescription 09/29/2020 Pre-surgery Evaluation Tam Corea , DO: 6 [facility] Susan [place] [phone], Ph. Social History Tobacco Smoking Status Former [...]
[2022-03-15 00:55] LABS: Glucose, Whole Blood 323 mg/dL (60-115)
[2022-03-15] MEDS: Insulin Lispro 100 UNIT/ML 3 ML VIAL SUBCUT ×5 (00:58→22:44)
[2022-03-15] MEDS: Insulin Glargine,Hum.rec.anlog 100 UNIT/ML 10 ML VIAL 35 UNIT SUBCUT ×2 (00:58→22:44)
[2022-03-15] MEDS: Oseltamivir Phosphate 75 MG CAPSULE PO ×3 (00:58→22:45)
[2022-03-15] MEDS: Albuterol/Iprat 2.5/0.5MG 3 ML AMPUL.NEB INHALE ×4 (02:16→19:57)
[2022-03-15] MEDS: Azithromycin 500 MG in 0.9 % Sodium Chloride 250 ML 125 MG IV (03:13)
--- NOTE | 2022-03-15 05:56 | MHC.EDTECH ---
Patient urine output from purewick container 1200 ml.
--- NOTE | 2022-03-15 06:05 | PC.NURSE ---
this rn assisted pt in changing pad underneither her as she reported it feeling wet. pad changed. at this time rn noticed small skin tear about the size of eraser head. picture and tiger text message sent to Dr. Hand. No new orders at this time. pt getting prepared for transport to floor at this time
[2022-03-15 06:29] LABS: Basophils Absolute Auto 0.1 X10*3/uL (0.0-0.2); Basophils Percent Auto 0.6 % (0-2); Eosinophils Percent Auto 0.1 % (0-4); Hematocrit 33.6 % (37.0-47.0); Hemoglobin 10.7 g/dl (12.0-16.0); Imm Gran Pct Auto 0.8 % (0.0-0.4); Lymphocytes Absolute Auto 0.6 X10*3/uL (1.2-4.9); Lymphocytes Percent Auto 4.5 % (20-40); MANUAL DIFF FLAG SCAN; Mean Corpuscular HGB Conc 31.8 g/dl (31.0-35.0); Mean Corpuscular Hemoglobin 27.2 pg (27.0-33.0); Mean Corpuscular Volume 85.5 fL (80.0-98.0); Mean Platelet Volume 11.7 fL (9.4-12.3); Monocytes Absolute Auto 0.2 X10*3/uL (0.1-1.2); Monocytes Percent Auto 1.9 % (2-11); Neutrophils Absolute Auto 11.4 x10*3/uL (2.0-8.3); Neutrophils Percent Auto 92.1 % (45-73); Platelet Count 234 X10*3/uL (160-400); Red Blood Count 3.93 X10*6/uL (4.20-5.50); Red Cell Distribution Width 14.8 % (11.0-16.0); SCAN SMEAR FLAG 1; White Blood Count 12.3 X10*3/uL (4.8-10.8)
[2022-03-15 06:47] LABS: Anion Gap 15 (12-20); Blood Urea Nitrogen 28 mg/dL (9-16); Calcium 9.1 mg/dL (8.4-10.2); Carbon Dioxide 32 mmol/L (22-29); Chloride 92 mmol/L (96-108); Creatinine Clr Calc Pharmacy 61.7; Estimated Glomerular Filt Rate 46; Glucose Random 321 mg/dL (60-115); Potassium 4.2 mmol/L (3.3-5.1); Sodium 135 mmol/L (135-145)
--- NOTE | 2022-03-15 06:56 | MHC.EDTECH ---
Collected patients urine from purewick container output 200ml.
[2022-03-15 07:13] LABS: SLIDE REVIEW VERIFIED
[2022-03-15 07:25] LABS: Glucose, Whole Blood 328 mg/dL (60-115)
--- NOTE | 2022-03-15 08:27 | MHC.CM.PN ---
PATIENT IS IN FROM [facility]. SHE IS PRIMARILY BEDBOUND DURING THE DAY BUT DOES GET MOBILIZED IN FACILITY VIA WHEELCHAIR. SHE RELIES ON 2-4 LITRES O2 AT FACILITY HCP ON FILE PLAN IS FOR HER TO RETURN ONCE MEDICALLY STABLE. IMM 03/15 IN CHART
[2022-03-15] MEDS: Furosemide 40 MG TABLET PO (08:32)
[2022-03-15] MEDS: Enoxaparin Sodium 40 MG/0.4 ML SYRINGE SUBCUT (08:32)
[2022-03-15] MEDS: methylPREDNISolone Sod Succ 40 MG/ML VIAL IVPUSH ×2 (08:32→22:45)
[2022-03-15] MEDS: 0.9 % Sodium Chloride Flush 3 ML SYRINGE IVFLUSH ×3 (08:35→22:48)
--- NOTE | 2022-03-15 09:18 | PHA.MEDREC ---
Pharmacy Consult ? Medication Reconciliation Pharmacy has completed the medication reconciliation. Patient came from [facility] with med list. Sondra Hart, PharmD
[2022-03-15 11:11] LABS: Glucose, Whole Blood 283 mg/dL (60-115)
--- NOTE | 2022-03-15 15:27 | PM.EVENT ---
Event Note Date of Service: 03/15/22 Event Note: Patient seen examined, feeling better since admission Med reconciliation done Continue treatment plan as per H&P Time Spent With Patient Time: Total time managing care of this patient today ____ minutes.
[2022-03-15 16:26] LABS: Glucose, Whole Blood 326 mg/dL (60-115)
[2022-03-15] MEDS: Metoprolol Tartrate 50 MG TABLET PO (18:27)
[2022-03-15 19:49] LABS: Glucose, Whole Blood 356 mg/dL (60-115)
[2022-03-15] MEDS: cefTRIAXone sodium 1 GM in 0.9 % Sodium Chloride 50 ML IV (22:44)
[2022-03-15] MEDS: timoloL maleate 0.5 % Oph Sol 5 ML DRBTL 1 DROP EYE-RIGHT (22:45)
[2022-03-15] MEDS: chlordiazePOXIDE HCl 5 MG CAPSULE 10 MG PO (22:45)
[2022-03-15] MEDS: prednisoLONE Acetate 1 % Oph Susp 5 ML DRPBTL 1 DROP EYE-RIGHT (22:46)
[2022-03-16] VITALS (8 sets, daily range): BP systolic 138–155; BP diastolic 58–68; PULSE 72–84; RESP 17–18; TEMP 35.9–36.6; O2SAT 95–98
[2022-03-16] MEDS: Albuterol/Iprat 2.5/0.5MG 3 ML AMPUL.NEB INHALE ×5 (00:48→20:01)
[2022-03-16] MEDS: Azithromycin 500 MG in 0.9 % Sodium Chloride 250 ML 125 MG IV (02:54)
[2022-03-16] MEDS: Levothyroxine Sodium 175 MCG TABLET PO (05:55)
[2022-03-16 07:40] LABS: Glucose, Whole Blood 225 mg/dL (60-115)
[2022-03-16] MEDS: Furosemide 40 MG TABLET PO (08:36)
[2022-03-16] MEDS: methylPREDNISolone Sod Succ 40 MG/ML VIAL IVPUSH ×2 (08:36→20:31)
[2022-03-16] MEDS: amLODIPine Besylate 10 MG TABLET PO (08:36)
[2022-03-16] MEDS: Escitalopram Oxalate 20 MG TABLET PO (08:36)
[2022-03-16] MEDS: Metoprolol Tartrate 50 MG TABLET PO ×2 (08:36→20:31)
[2022-03-16] MEDS: Enoxaparin Sodium 40 MG/0.4 ML SYRINGE SUBCUT (08:37)
[2022-03-16] MEDS: Insulin Lispro 100 UNIT/ML 3 ML VIAL SUBCUT ×4 (08:37→20:32)
[2022-03-16] MEDS: Aspirin 325 MG TABLET PO (08:37)
[2022-03-16] MEDS: prednisoLONE Acetate 1 % Oph Susp 5 ML DRPBTL 1 DROP EYE-RIGHT ×4 (08:37→20:42)
[2022-03-16] MEDS: Oseltamivir Phosphate 75 MG CAPSULE PO ×2 (08:37→20:32)
[2022-03-16] MEDS: SITagliptin Phosphate 100 MG TABLET PO (08:37)
[2022-03-16] MEDS: 0.9 % Sodium Chloride Flush 3 ML SYRINGE IVFLUSH ×3 (08:38→20:37)
[2022-03-16] MEDS: timoloL maleate 0.5 % Oph Sol 5 ML DRBTL 1 DROP EYE-RIGHT ×2 (08:38→20:42)
[2022-03-16 11:29] LABS: Glucose, Whole Blood 282 mg/dL (60-115)
--- NOTE | 2022-03-16 13:36 | HO.PM.IMPN ---
Subjective Subjective Date of Service: 03/16/22 Interval History: Feeling better this morning, less shortness of breath and cough, no acute overnight events, no nausea no vomiting no abdominal pain tolerating diet no diarrhea, no fevers no chills. 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 Neck supple no JVD. CVS regular rate rhythm, Respiratory lungs bilateral rhonchi lower lobes,no respiratory distress, no wheeze, no rhonchi. Gastrointestinal abdomen soft, nontender, bowel sounds audible, no guarding , no rigidity. Extremities no edema. Neuro nonfocal patient moving all 4 extremity speech clear. Skin chronic skin discoloration lower extremities Psych appropriate affect Objective Data Active Medications Acetaminophen (Acetaminophen 325 Mg Tablet) 650 mg PO Q6H PRN PRN Reason: Pain, Mild (Pain Scale 1-3) Albuterol Sulfate (Albuterol Sulfate (0.042%) 1.25 Mg/3 Ml Vial.Neb) 0.63 mg INHALE Q4H PRN PRN Reason: Wheezing Albuterol/Ipratropium (Albuterol/Iprat 2.5/0.5mg 3 Ml Ampul.Neb) 3 ml INHALE RQ4H WHILE AWAKE [facility] Last Admin: 03/16/22 10:51 Dose: 3 ml Documented By: JUS Albuterol/Ipratropium (Albuterol/Iprat 2.5/0.5mg 3 Ml Ampul.Neb) 3 ml INHALE RQ4H PRN PRN Reason: wheezing Last Admin: 03/16/22 00:48 Dose: 3 ml Documented By: KIP Amlodipine Besylate (Amlodipine Besylate 10 Mg Tablet) 10 mg PO DAILY [facility]; Protocol Last Admin: 03/16/22 08:36 Dose: 10 mg Documented By: COTEMA Aspirin (Aspirin 325 Mg Tablet) 325 mg PO DAILY [facility] Last Admin: 03/16/22 08:37 Dose: 325 mg Documented By: COTEMA Bisacodyl (Bisacodyl 10 Mg Supp.Rect) 10 mg MI DAILY PRN PRN Reason: Constipation Chlordiazepoxide HCl (Chlordiazepoxide Hcl 5 Mg Capsule) 10 mg PO BEDTIME [facility] Last Admin: 03/15/22 22:45 Dose: 10 mg Documented By: HARPER Dextrose (Dextrose 50 % 25 Gm/50 Ml Syringe) 25 gm IVPUSH Q15M PRN; Protocol PRN Reason: per Hypoglycemia Standing Ord. Enoxaparin Sodium (Enoxaparin Sodium 40 Mg/0.4 Ml Syringe) 40 mg SUBCUT Q24H [facility] Last Admin: 03/16/22 08:37 Dose: 40 mg Documented By: SHERRIEMA Escitalopram Oxalate (Escitalopram Oxalate 20 Mg Tablet) 20 mg PO DAILY [facility] Last Admin: 03/16/22 08:36 Dose: 20 mg Documented By: COTEMA Furosemide (Furosemide 40 Mg Tablet) 40 mg PO DAILY [facility]; Protocol Last Admin: 03/16/22 08:36 Dose: 40 mg Documented By: SHERRIEMA Glucose (Glucose Gel 15 Gm Gel..Gram.) 15 gm PO Q15M PRN; Protocol PRN Reason: per Hypoglycemia Standing Ord. Ceftriaxone Sodium 1 gm/ (Sodium Chloride) 50 mls @ 100 mls/hr IV Q24H [facility] Last Infusion: 03/16/22 00:28 Dose: 0 mls/hr Documented By: HARPER Azithromycin 500 mg/ Sodium (Chloride) 250 mls @ 125 mls/hr IV Q24H [facility] Last Infusion: 03/16/22 05:04 Dose: 0 mls/hr Documented By: HARPER Insulin Glargine (Insulin Glargine,Hum.Rec.Anlog 100 Unit/Ml 10 Ml Vial) 35 unit SUBCUT BEDTIME [facility] Last Admin: 03/15/22 22:44 Dose: 35 unit Documented By: HARPER Insulin Human Lispro (Insulin Lispro 100 Unit/Ml 3 Ml Vial) 0 unit SUBCUT QIDACHS [facility]; Protocol Last Admin: 03/16/22 12:38 Dose: 6 unit Documented By: JHONNY Latanoprost (Latanoprost 0.005 % Ophth Mona 2.5 Ml Drops) 1 drop EYE-BOTH BEDTIME [facility] Last Admin: 03/15/22 22:53 Dose: Not Given Documented By: HARPER Non-Admin Reason: Med Not Available Levothyroxine Sodium (Levothyroxine Sodium 175 Mcg Tablet) 175 mcg PO DAILY@0600 [facility] Last Admin: 03/16/22 05:55 Dose: 175 mcg Documented By: HARPER Melatonin (Melatonin 3 Mg Tablet) 6 mg PO BEDTIME PRN PRN Reason: Insomnia Methylprednisolone Sodium Succinate (Methylprednisolone Sod Succ 40 Mg/Ml Vial) 40 mg IVPUSH Q12H [facility] Last Admin: 03/16/22 08:36 Dose: 40 mg Documented By: JHONNY Metoprolol Tartrate (Metoprolol Tartrate 50 Mg Tablet) 50 mg PO BID [facility]; Protocol Last Admin: 03/16/22 08:36 Dose: 50 mg Documented By: JHONNY Non-Formulary Medication (Brinzolamide-Brimonidine [Simbrinza]) 1 drop EYE-RIGHT BID [facility] Ondansetron HCl (Ondansetron Hcl 4 Mg/2 Ml Vial) 4 mg IVPUSH Q8H PRN PRN Reason: Nausea and Vomiting Oseltamivir Phosphate (Oseltamivir Phosphate 75 Mg Capsule) 75 mg PO BID [facility] Stop: 03/19/22 09:01 Last Admin: 03/16/22 08:37 Dose: 75 mg Documented By: JHONNY Pharmacy Consult (Consult Rx Perform Med Rec) 1 each MISCELLANE ONCE PRN PRN Reason: Consult order Prednisolone Acetate (Prednisolone Acetate 1 % Oph Susp 5 Ml Drpbtl) 1 drop EYE-RIGHT QID [facility] Last Admin: 03/16/22 12:38 Dose: 1 drop Documented By: JHONNY Senna (Sennosides 8.6 Mg Tablet) 17.2 mg PO DAILY PRN PRN Reason: Constipation Sitagliptin Phosphate (Sitagliptin Phosphate 100 Mg Tablet) 100 mg PO DAILY [facility] Last Admin: 03/16/22 08:37 Dose: 100 mg Documented By: JHONNY Sodium Chloride (0.9 % Sodium Chloride Flush 3 Ml Syringe) 3 ml IVFLUSH QSHIFT [facility] Last Admin: 03/16/22 08:38 Dose: 3 ml Documented By: JHONNY Timolol Maleate (Timolol Maleate 0.5 % Oph Mona 5 Ml Drbtl) 1 drop EYE-RIGHT BID [facility] Last Admin: 03/16/22 08:38 Dose: 1 drop Documented By: JHONNY Labs CBC & Chem 7: 03/15/22 05:55 03/15/22 05:55 Labs: Laboratory Results - last 24 hr 03/15/22 03/15/22 03/16/22 16:11 19:36 07:35 POC Glucose 326 H 356 H* 225 H 03/16/22 11:24 POC Glucose 282 H Microbiology Microbiology Results: Microbiology 03/14/22 20:26 Blood Culture - Preliminary Blood - Venous No growth after 24 hours. 03/14/22 20:26 Blood Culture - Preliminary Blood - Venous No growth after 24 hours. Assessment and Plan (1) Obesity: Status: Acute (2) Hypoxia: Status: Acute Plan 72-year-old female with pertinent history of chronic hypoxemic respiratory failure due to COPD on 2 L supplemental oxygen, chronic diastolic heart failure, chronic kidney disease, insulin-dependent diabetes mellitus, essential hypertension, hypothyroidism, mood disorder, mixed hyperlipidemia, CLL who presents to the emergency department for evaluation of dyspnea. #.? Acute on chronic hypoxemic respiratory failure secondary to Acute exacerbation of COPD in the setting of Influenza A with bacterial superinfection Feeling better continue scheduled and p.r.n. DuoNebs, Tamiflu and IV ceftriaxone and azithromycin day 2 Currently on 2 L of supplemental oxygen, At home baseline 2 L #.? Mild decompensation of diastolic heart failure:? Status post IV Lasix currently appears euvolemic continue home Lasix 40 mg daily #.? Elevated troponin/flat? Likely type 2 in the setting of hypoxia, #.? Insulin-dependent type 2 diabetes mellitus with hyperglycemia likely due to steroids,Continue Lantus 35 units at bedtime and insulin sliding scale #.? Hypothyroidism: Continue Synthroid #.? Mood disorder:? Continue citalopram #.? Essential hypertension:? Continue home p.o. antihypertensives #.? Stage II right buttock right recommend frequent position change and wound care # morbid obesity low-calorie diet recommended likely contributing to high blood sugars. DVT prophylaxis:? Lovenox 40 mg daily Full code Continue inpatient treatment for persistent shortness of breath on IV antibiotics and Tamiflu Time Spent With Patient Time: Total time managing care of this patient today ____ minutes. Quality Stroke Does the patient have a stroke diagnosis?: No VTE Prior VTE?: No VTE Risk Level:: Medical - moderate - high VTE Device Contraindication: Treatment Not Indicated VTE Drug Contraindication: N/A - Med Ordered
--- NOTE | 2022-03-16 14:55 | MHC.CM.PN ---
PLAN IS BACK TO [facility] Tuesday03/17/22 FACILITY MADE AWARE IN [facility].
[2022-03-16 16:28] LABS: Glucose, Whole Blood 291 mg/dL (60-115)
[2022-03-16 19:22] LABS: Glucose, Whole Blood 408 mg/dL (60-115)
[2022-03-16] MEDS: cefTRIAXone sodium 1 GM in 0.9 % Sodium Chloride 50 ML IV (20:09)
[2022-03-16] MEDS: chlordiazePOXIDE HCl 5 MG CAPSULE 10 MG PO (20:13)
[2022-03-16] MEDS: Brimonidine Tartrate 0.2% Oph 5 ML BOTTLE 1 DROP EYE-RIGHT (20:30)
[2022-03-16] MEDS: Dorzolamide HCl 2 % Ophth Sol 10 ML DRPBTL 1 DROP EYE-RIGHT (20:31)
[2022-03-16] MEDS: Insulin Glargine,Hum.rec.anlog 100 UNIT/ML 10 ML VIAL 35 UNIT SUBCUT (20:32)
[2022-03-16] MEDS: Latanoprost 0.005 % Ophth Sol 2.5 ML DROPS 1 DROP EYE-BOTH (22:37)
[2022-03-17] MEDS: Albuterol/Iprat 2.5/0.5MG 3 ML AMPUL.NEB INHALE ×3 (00:50→11:30)
[2022-03-17] MEDS: Azithromycin 500 MG in 0.9 % Sodium Chloride 250 ML 125 MG IV (03:58)
[2022-03-17 04:00] VITALS: BP 185/83; PULSE 64; RESP 18; TEMP 36.8; O2SAT 2
[2022-03-17] MEDS: Levothyroxine Sodium 175 MCG TABLET PO (06:36)
[2022-03-17 07:33] LABS: Glucose, Whole Blood 288 mg/dL (60-115)
[2022-03-17 08:11] VITALS: PULSE 58; RESP 16; O2SAT 99
[2022-03-17 08:20] VITALS: BP 185/77; PULSE 61; RESP 19; TEMP 36; O2SAT 97
[2022-03-17] MEDS: Escitalopram Oxalate 20 MG TABLET PO (09:14)
[2022-03-17] MEDS: Aspirin 325 MG TABLET PO (09:14)
[2022-03-17] MEDS: methylPREDNISolone Sod Succ 40 MG/ML VIAL IVPUSH (09:14)
[2022-03-17] MEDS: amLODIPine Besylate 10 MG TABLET PO (09:14)
[2022-03-17] MEDS: Oseltamivir Phosphate 75 MG CAPSULE PO (09:14)
[2022-03-17] MEDS: Atorvastatin Calcium 10 MG TABLET PO (09:14)
[2022-03-17] MEDS: SITagliptin Phosphate 100 MG TABLET PO (09:14)
[2022-03-17] MEDS: Metoprolol Tartrate 50 MG TABLET PO (09:14)
[2022-03-17] MEDS: Furosemide 40 MG TABLET PO (09:14)
[2022-03-17] MEDS: Azithromycin 500 MG TABLET PO (09:15)
[2022-03-17] MEDS: Enoxaparin Sodium 40 MG/0.4 ML SYRINGE SUBCUT (09:15)
[2022-03-17] MEDS: Insulin Lispro 100 UNIT/ML 3 ML VIAL SUBCUT ×2 (09:15→12:36)
[2022-03-17] MEDS: 0.9 % Sodium Chloride Flush 3 ML SYRINGE IVFLUSH (09:15)
[2022-03-17] MEDS: Brimonidine Tartrate 0.2% Oph 5 ML BOTTLE 1 DROP EYE-RIGHT (09:16)
[2022-03-17] MEDS: Dorzolamide HCl 2 % Ophth Sol 10 ML DRPBTL 1 DROP EYE-RIGHT (09:16)
[2022-03-17] MEDS: prednisoLONE Acetate 1 % Oph Susp 5 ML DRPBTL 1 DROP EYE-RIGHT ×2 (09:16→12:37)
[2022-03-17] MEDS: timoloL maleate 0.5 % Oph Sol 5 ML DRBTL 1 DROP EYE-RIGHT (09:16)
--- NOTE | 2022-03-17 10:47 | PM.DS ---
DS: Providers Provider Date of Service: 03/17/22 Date of admission: 03/15/22 00:05 Primary care physician: Tam Corea MD DS: Diagnosis Discharge Diagnosis (1) Obesity: Status: Acute (2) Hypoxia: Status: Acute DS: Summary Hospital Course Hospital Course: Date of Service: 03/15/22 Chief Complaint: Dyspnea This is a 72-year-old female with pertinent history of chronic hypoxemic respiratory failure due to COPD on 2 L supplemental oxygen, chronic diastolic heart failure, chronic kidney disease, insulin-dependent diabetes mellitus, essential hypertension, hypothyroidism, mood disorder, mixed hyperlipidemia, CLL who presents to the emergency department for evaluation of dyspnea.? Patient states it started 2 days prior to presentation.? It has been progressive and associated with wheezing.? Also has been having cough with significant sputum production, fevers and chills.? Patient was found to be 73% on her baseline 2 L supplemental oxygen and was placed on CPAP initially.? Her initially but breathing improved with CPAP and she was weaned down to 4 L supplemental oxygen.? She denies chest discomfort, palpitations, abdominal pain, changes in urinary or bowel habits. Hospital course 72-year-old female with pertinent history of chronic hypoxemic respiratory failure due to COPD on 2 L supplemental oxygen, chronic diastolic heart failure, chronic kidney disease, insulin-dependent diabetes mellitus, essential hypertension, hypothyroidism, mood disorder, mixed hyperlipidemia, CLL who presents to the emergency department for evaluation of dyspnea. #.? Acute on chronic hypoxemic respiratory failure secondary to Acute exacerbation of COPD in the setting of Influenza A with bacterial superinfection patient treated with IV Solu Medrol, scheduled and as needed Arthur, ?? ? Tamiflu and IV ceftriaxone and azithromycin patient responded well to above treatment currently on 2 L of baseline oxygen finger oximetry stable shortness of breath has improved patient is now being discharged home to finish course of antibiotics and Tamiflu and on tapering dose of steroids. Continue influenza a precautions while patient is symptomatic and discontinue as per your facility policy ?? ? #.? Mild decompensation of diastolic heart failure:? Status post IV Lasix currently appears euvolemic continue home Lasix 40 mg daily #.? Elevated troponin/flat? Likely type 2 in the setting of hypoxia, no further workup required, #.? Insulin-dependent type 2 diabetes mellitus with hyperglycemia likely due to steroids,Continue Lantus 35 units at bedtime and insulin sliding scale #.? Hypothyroidism: Continue Synthroid #.? Mood disorder:? Continue citalopram #.? Essential hypertension:? Continue home p.o. antihypertensives #.? Stage II right buttock right recommend frequent position change and wound care. # morbid obesity low-calorie diet recommended likely contributing to high blood sugars. Time Spent with Patient Time attestation: Total time managing care of this patient today ____ minutes. Discharge coordination time: Greater than 30 minutes Quality: Safe Use of Opioids Does Pt have an Active Cancer Diagnosis on the Problem List?: No Quality: Stroke Does the patient have a stroke diagnosis?: No Physical Exam Vital Signs: Vital Signs: Last Vital Signs Temp 96.8 F 03/17/22 08:20 Pulse 61 03/17/22 08:20 Resp 19 03/17/22 08:20 BP 185/77 H 03/17/22 08:20 Pulse Ox 97 03/17/22 08:20 O2 Del Method 03/17/22 08:20 O2 Flow Rate 2.0 03/17/22 08:20 BMI result Body Mass Index 55.8 Const: Other: General awake alert, in no acute distress.? Neck supple no JVD. CVS? regular rate rhythm, Respiratory lungs few scattered rhonchi ,no respiratory distress, no wheeze, no rhonchi. Gastrointestinal abdomen soft, nontender, bowel sounds audible, no guarding , no rigidity. Extremities no edema. Neuro nonfocal patient moving all 4 extremity speech clear. Skin chronic skin discoloration lower extremities Psych appropriate affect DS: Data Data Completed and Pending Completed studies during hospitalization [Text1]: Procedures Drainage of Left Main Bronchus, Via Natural or Artificial Opening Endoscopic, Diagnostic (11/19/21) Drainage of Left Pleural Cavity, Percutaneous Approach (11/19/21) Drainage of Right Main Bronchus, Via Natural or Artificial Opening Endoscopic, Diagnostic (11/19/21) Drainage of Right Pleural Cavity, Percutaneous Approach (11/19/21) Excision of Right Inguinal Lymphatic, Percutaneous Approach, Diagnostic (11/19/21) Excision of Thorax Lymphatic, Percutaneous Endoscopic Approach, Diagnostic (11/19/21) Insertion of Endotracheal Airway into Trachea, Via Natural or Artificial Opening (11/19/21) Insertion of Infusion Device into Superior Vena Cava, Percutaneous Approach (11/19/21) Inspection of Tracheobronchial Tree, Via Natural or Artificial Opening Endoscopic (11/19/21) Introduction of Remdesivir Anti-infective into Peripheral Vein, Percutaneous Approach, [employer] (10/11/21) Introduction of Vasopressor into Central Vein, Percutaneous Approach (11/19/21) Respiratory Ventilation, Greater than 96 Consecutive Hours (11/19/21) Ultrasonography of Superior Vena Cava, Guidance (11/19/21) Labs on day of discharge: Laboratory Results - last 24 hr 03/16/22 03/16/22 03/16/22 11:24 16:24 19:16 POC Glucose 282 H 291 H 408 H* 03/17/22 07:25 POC Glucose 288 H Preliminary micro results at discharge 03/14/22 20:26 Blood Culture - Preliminary Blood - Venous No growth after 48 hours. 03/14/22 20:26 Blood Culture - Preliminary Blood - Venous No growth after 48 hours. Discharge Plan Discharge Anticipated Discharge Date/Time: 03/17/22 10:38 Patient Disposition: Xfer [facility] Discharge Diagnosis: Acute on chronic hypoxic respiratory failure Influenza a with superadded bacterial infection acute COPD exacerbation Referrals: Tam Corea MD [Primary Care Provider] - 1 Week Discharge Medications: New ipratropium-albuterol 0.5 mg-3 mg(2.5 mg base)/3 mL Solution For Nebulization 3 ml inhalation RQ4H WHILE AWAKE Qty: 90 0RF oseltamivir [Tamiflu] 75 mg Capsule 75 mg PO BID Qty: 5 0RF cefuroxime axetil 500 mg Tablet 500 mg PO BID Qty: 6 0RF azithromycin 500 mg Tablet 500 mg PO DAILY Qty: 2 0RF prednisone 20 mg tablet 20 mg PO DAILY Qty: 5 0RF Continued levothyroxine 175 mcg tablet 175 mcg PO DAILY@0600 citalopram 20 mg tablet 40 mg PO DAILY simvastatin 20 mg tablet 20 mg PO BEDTIME chlordiazepoxide HCl 10 mg capsule 10 mg PO BEDTIME insulin lispro protamin-lispro 100 unit/mL (75-25) insulin pen 0 unit subcut TIDAC Protocol: Insulin Correction Scale Less than or equal to 110 ---- Give (units): 0 111 to 150 Give (units): 0 151 to 200 Give (units): 2 201 to 250 Give (units): 4 251 to 300 Give (units): 6 301 to 350 Give (units): 8 Greater than 350 Give (units): 10 Call MD if Blood Glucose > : 350 Januvia 100 mg tablet 100 mg PO DAILY multivitamin Tablet 1 tab PO DAILY aspirin 325 mg Tablet 325 mg PO DAILY amlodipine 10 mg tablet 10 mg PO DAILY Qty: 30 0RF latanoprost 0.005 % drops 1 drp ophthalmic (eye) BEDTIME nystatin 100,000 unit/gram Powder 1 appl topical BID 7 Days Qty: 30 0RF Protocol: Apply to: Apply to: intertriginous areas albuterol sulfate 0.63 mg/3 mL Solution For Nebulization 0.63 mg INHALATION Q4-6H PRN (Reason: Wheezing) sennosides [senna] 8.6 mg Tablet 17.2 mg PO DAILY PRN (Reason: Constipation) sfufeyzpny-[id number]-[id number] 50-325-40 mg tablet 1 tab PO QID PRN (Reason: Pain) prednisolone acetate 1 % drops,suspension 1 drp ophthalmic-Right QID bisacodyl 10 mg Suppository 10 mg IN DAILY PRN (Reason: Constipation) metoprolol tartrate 50 mg Tablet 50 mg PO BID timolol maleate 0.5 % drops 1 drp ophthalmic-Right BID coenzyme Q10 [CoQ-10] 100 mg Capsule 50 mg PO DAILY diclofenac sodium 1 % Gel 2 g TOPICAL QID Rx Instructions: apply to single elbow, wrist or hand; for hand includes palm/fingers/back of hand melatonin 5 mg Tablet 5 mg PO BEDTIME PRN (Reason: Sleep) Simbrinza 1-0.2 % drops,suspension 1 drp ophthalmic-Right BID riboflavin (vitamin B2) 400 mg Tablet 400 mg PO DAILY magnesium oxide 400 mg magnesium Tablet 400 mg PO DAILY insulin glargine [Lantus Solostar U-100 Insulin] 100 unit/mL (3 mL) insulin pen 35 unit subcut BEDTIME furosemide 40 mg tablet 40 mg PO DAILY Qty: 30 0RF Artificial Tears (cmc) 1 % Drops 1 drp OPHTHALMIC (EYE) BID Held hydroxychloroquine 200 mg tablet 200 mg PO BID Hold Instructions: Resume on 03/23/22. Discharge Orders: Discharge Order (Routine); Ordered 03/17/22 Ordered By: Krystal Guillen Diet: Diabetic diet Activity on Discharge: As tolerated Stand Alone Forms: Patient Portal Discharge page Care Plan Goals: Influenza A infection take droplet precautions while patient is symptomatic with cough sneezing or shortness of breath and follow facility policy Take prednisone for 5 more days, finished course of antibiotics use DuoNeb updraft scheduled q.4 hours while awake for the next 3-4 days and then as needed Health Concerns: Continue all home Plan of Treatment: Outpatient follow-up with primary care physician Assessment: As above
[2022-03-17 11:14] LABS: Glucose, Whole Blood 317 mg/dL (60-115)
[2022-03-17 11:30] VITALS: PULSE 58; RESP 18; O2SAT 95
--- NOTE | 2022-03-17 11:32 | MHC.CM.PN ---
Addendum entered by Parvin Neal RN 03/17/22 11:51: 1530 CONFIRMED WITH [facility] ([phone]) RN AWARE. Original Note: PATIENT TO RETURN TO [facility] TODAY [facility] REQUEST TO BE MADE FOR 1530. UNIT AWARE. CM TO UPDATE RN AND PATIENT ONCE PLANS ARE SECURED IMM 03/15 [facility]
[2022-03-17 15:04] LABS: COVID-19 Test Negative (Negative); IDNOW Serial# 16C4AD1C
[2022-03-17 15:13] VITALS: BP 154/70; PULSE 67; RESP 16; TEMP 36.5; O2SAT 98
[2022-03-17 15:36] LABS: Glucose, Whole Blood 321 mg/dL (60-115)
== END 2022-03-17 15:30 | disposition skilled nursing facility (03) | DRG 193 ==
LOC: HO.ED 22:20 → HO.EDOVER 03-15 00:11 → HO.S3 03-15 06:05
PROVIDERS: Physician Assistant; Admitting Provider Student in an Organized Health Care Education/Training Program; Emergency Provider Internal Medicine; PCP Internal Medicine; Visit Provider Hospitalist
DX: J10.1 Influenza due to other identified influenza virus with other respiratory manifestations (principal); I50.33 Acute on chronic diastolic (congestive) heart failure; J96.21 Acute and chronic respiratory failure with hypoxia; J44.1 Chronic obstructive pulmonary disease with (acute) exacerbation; C91.10 Chronic lymphocytic leukemia of B-cell type not having achieved remission; Z68.43 Body mass index [BMI] 50.0-59.9, adult; E03.9 Hypothyroidism, unspecified; G93.2 Benign intracranial hypertension; E78.5 Hyperlipidemia, unspecified; E78.2 Mixed hyperlipidemia; F39 Unspecified mood [affective] disorder; L89.312 Pressure ulcer of right buttock, stage 2; E11.65 Type 2 diabetes mellitus with hyperglycemia; E66.01 Morbid (severe) obesity due to excess calories; I11.0 Hypertensive heart disease with heart failure; Z71.3 Dietary counseling and surveillance; Z20.822 Contact with and (suspected) exposure to COVID-19; Z98.2 Presence of cerebrospinal fluid drainage device; Z87.891 Personal history of nicotine dependence; Z99.81 Dependence on supplemental oxygen; Z88.5 Allergy status to narcotic agent; Z79.4 Long term (current) use of insulin; Z79.890 Hormone replacement therapy; Z79.899 Other long term (current) drug therapy
CPT/HCPCS: 0241U; 36415; 71045; 80048; 80053; 81003; 82803; 82947; 83605; 83735; 83880; 84484; 85025; 87040; 87635; 93005; 94640; 94660; 99285; J0456; J0696; J1650; J1940; J2920; J2930; J3475

== ENCOUNTER 2022-03-18 16:57 | Emergency (ER) | payer MEDICARE, MEDICAID, SELFPAY ==
--- NOTE | ~2022-03-18 | CT_ITS ---
EXAMINATION: CT CHEST WITHOUT CONTRAST CLINICAL INFORMATION: Left lower lobe pneumonia/effusion COMPARISON: Chest x-ray performed earlier the same day, chest CT 11/23/2021 TECHNIQUE: Multidetector volumetric CT imaging of the chest was done. Axial MIP volume rendering provided. Sagittal and coronal reformatted images were obtained. This CT examination was performed using dose optimization techniques as appropriate, variously including the following: *Automated exposure control *Adjustment of mA and/or kV according to patient size (this includes techniques or standardized protocols for targeted exams where dose is matched to indication/reason for exam; i.e. extremities or head) *Use of iterative reconstruction technique DLP: 616 mGy-cm FINDINGS: LUNGS: Assessment slightly limited due to respiratory motion artifact. Some volume loss and airspace opacity in the left lower lobe consistent with atelectasis. Mild atelectasis in the medial aspect right middle and right lower lobe and posterior aspect of the lingula. Small patchy consolidative and groundglass opacities in the posterior left upper lobe abutting the minor fissure series 4 image 190 and a few ill-defined small nodules and groundglass opacities in the left upper lobe likely inflammatory/infectious. No pneumothorax. Central airways are clear. MEDIASTINUM: Heart is mildly enlarged. Coarse mitral annular calcifications. Extensive three-vessel coronary artery vascular calcifications. Lipomatous hypertrophy of interatrial septum. No pericardial effusion. Normal caliber thoracic aorta. Moderate vascular calcifications. Nondilated central pulmonary trunk. Extensive mediastinal lymphadenopathy, largest node or conglomerate nodes in the lower right paratracheal region measuring 2.8 x 3.2 cm in size, similar to prior. Ill-defined hilar adenopathy right greater than left. CORONARY ARTERY CALCIFICATION: Present, as above. PLEURA: Small bilateral pleural effusions right larger than left. AXILLA: Bilateral axillary lymphadenopathy, largest node on the right measuring 1.1 cm in short axis, largest node on the left measuring 1.5 cm in short axis, also present previously. UPPER ABDOMEN: Visualized upper abdominal viscera are grossly unremarkable. There is small subcentimeter upper periaortic retroperitoneal lymph nodes and prominent right. Prominent periceliac and portacaval lymph nodes, unchanged. OSSEOUS STRUCTURES: No acute fracture or suspicious osseous lesion. Changes of DISH in superimposed multilevel degenerative disc disease in the spine. Epidural catheter tip terminates in the lower thoracic spinal canal. CT/CT chest wo IV con IMPRESSION: 1. Small patchy consolidative and groundglass opacities in the left upper lobe and small ill-defined nodules likely inflammatory/infectious. 2. Bibasilar atelectasis left greater than right. Cannot exclude superimposed basilar pneumonia. 3. Small bilateral pleural effusions right larger than left. 4. Mild cardiomegaly. 5. Extensive mediastinal, hilar, and axillary lymphadenopathy, similar to prior. Correlate with history of malignancy or lymphoproliferative process.
--- NOTE | ~2022-03-18 | XR_ITS ---
EXAMINATION: XR CHEST CLINICAL INFORMATION: Shortness of breath COMPARISON: Chest x-ray 03/15/2022 TECHNIQUE: Frontal portable view of the chest was obtained. 5 the:44 PM FINDINGS: Heart size enlarged. Calcifications of mitral valve annulus. Calcifications of thoracic aorta. Moderate central pulmonary vascular prominence with increased lung markings, pulmonary vascular congestion. Severity of the pulmonary vascular congestion similar prior study 03/15/2022. Dense left lung base with silhouetting the diaphragm consistent with left basilar consolidation/atelectasis and possible left pleural effusion. XR/XR chest 1V IMPRESSION: 1. Persistent moderate pulmonary vascular congestion. 2. Dense left lung base due to consolidation/atelectasis and possible left pleural effusion.
[2022-03-18 17:01] VITALS: BP 180/90; PULSE 70; O2SAT 97
--- NOTE | 2022-03-18 17:15 | ED.SOB ---
HPI - SOB/Dyspnea General Chief Complaint: General Medical Stated Complaint: +flu A,Hypoxic Time Seen by Provider: 03/18/22 17:07 Source: patient Mode of arrival: EMS Limitations: no limitations History of Present Illness HPI Narrative: Patient is 72 years old with history of chronic hypoxemic respiratory failure secondary to COPD on 2 L supplemental oxygen, chronic diastolic heart failure, CKD, diabetes mellitus, hypertension, hypothyroidism, CLL, mood disorder was here on 03/15 admitted for influenza A and shortness of breath came back from long-term for increased shortness of breath today patient was saturating 79% on 2 L that increased to 4 L on arrival patient is saturating 100% patient received 2 DuoNeb treatment prior to arrival at long-term. No fever no chills no increased leg swelling no palpitation or chest pain MD elicited complaint: shortness of breath Related Data Home Medications Medication Instructions Recorded Confirmed aspirin 325 mg tablet 325 mg PO DAILY 10/08/21 03/15/22 chlordiazepoxide HCl 10 mg capsule 10 mg PO BEDTIME 10/08/21 03/15/22 citalopram 20 mg tablet 40 mg PO DAILY 10/08/21 03/15/22 hydroxychloroquine 200 mg tablet 200 mg PO BID 10/08/21 03/15/22 insulin lispro protamine-lispro 0 unit subcut TIDAC 10/08/21 03/15/22 100 unit/mL (75-25) subcutaneous pen levothyroxine 175 mcg tablet 175 mcg PO DAILY@0600 10/08/21 03/15/22 multivitamin 1 tab PO DAILY 10/08/21 03/15/22 simvastatin 20 mg tablet 20 mg PO BEDTIME 10/08/21 03/15/22 sitagliptin phosphate 100 mg 100 mg PO DAILY 10/08/21 03/15/22 tablet (Januvia) latanoprost 0.005 % eye drops 1 drp ophthalmic (eye) BEDTIME 11/20/21 03/15/22 albuterol sulfate 0.63 mg/3 mL 0.63 mg inhalation Q4-6H PRN 02/16/22 03/15/22 solution for nebulization Wheezing bisacodyl 10 mg rectal suppository [address] DAILY PRN Constipation 02/16/22 03/15/22 brinzolamide 1 %-brimonidine 0.2 % 1 drp ophthalmic-Right BID 02/16/22 03/15/22 eye drops,suspension (Simbrinza) ddkweujzyr-krykaghdyfqpa-enxvprvu 1 tab PO QID PRN Pain 02/16/22 03/15/22 50 mg-325 mg-40 mg tablet coenzyme Q10 100 mg capsule 50 mg PO DAILY 02/16/22 03/15/22 (CoQ-10) diclofenac sodium 1 % topical gel 2 g topical QID 02/16/22 03/15/22 insulin glargine 100 unit/mL (3 35 unit subcut BEDTIME 02/16/22 03/15/22 mL) subcutaneous pen (Lantus Solostar U-100 Insulin) magnesium oxide 400 mg PO DAILY 02/16/22 03/15/22 melatonin 5 mg tablet 5 mg PO BEDTIME PRN Sleep 02/16/22 03/15/22 metoprolol tartrate 50 mg tablet 50 mg PO BID 02/16/22 03/15/22 prednisolone acetate 1 % eye 1 drp ophthalmic-Right QID 02/16/22 03/15/22 drops,suspension riboflavin (vitamin B2) 400 mg 400 mg PO DAILY 02/16/22 03/15/22 tablet sennosides 8.6 mg tablet (senna) 17.2 mg PO DAILY PRN Constipation 02/16/22 03/15/22 timolol maleate 0.5 % eye drops 1 drp ophthalmic-Right BID 02/16/22 03/15/22 carboxymethylcellulose sodium 1 % 1 drp ophthalmic (eye) BID 03/15/22 03/15/22 eye drops (Artificial Tears (carboxymethylcellulose)) Previous Rx's Medication Instructions Recorded amlodipine 10 mg tablet 10 mg PO DAILY #30 tabs 10/16/21 nystatin 100,000 unit/gram topical 1 appl topical BID 7 days #30 grams 12/23/21 powder furosemide 40 mg tablet 40 mg PO DAILY #30 tabs 02/17/22 azithromycin 500 mg tablet 500 mg PO DAILY #2 tabs 03/17/22 cefuroxime axetil 500 mg tablet 500 mg PO BID #6 tabs 03/17/22 ipratropium 0.5 mg-albuterol 3 mg 3 ml inhalation RQ4H WHILE AWAKE 03/17/22 (2.5 mg base)/3 mL nebulization #90 mL soln oseltamivir 75 mg capsule (Tamiflu) 75 mg PO BID #5 caps 03/17/22 prednisone 20 mg tablet 20 mg PO DAILY #5 tabs 03/17/22 Allergies Allergy/AdvReac Type Severity Reaction Status Date / Time oxycodone [From Percocet] Allergy Intermediate Rash Verified 02/15/22 18:55 Review of Systems Review of Systems: Yes all other systems are reviewed and are negative [facility] Past Medical History Medical History CKD (chronic kidney disease) Congestive heart failure COVID Diabetes mellitus with insulin therapy Essential hypertension HLD (hyperlipidemia) HTN (hypertension) Hypothyroidism Infection with ESBL Klebsiella oxytoca Klebsiella pneumonia Lower extremity edema Lymphadenopathy, mediastinal Migraine Obesity Pleural effusion Pseudotumor cerebri PVD (peripheral vascular disease) Suspected deep tissue injury Surgical History H/O cataract extraction H/O hysterectomy for benign disease Hx of cholecystectomy S/P appendectomy Family History Family History Mother Heart attack, Onset Age: 92 Father Heart attack, Onset Age: 66 Other Diabetes Social History Social History Household Members: Family Household Members Other:: patient came from a rehab facility, been there since dec Housing: House Do you presently have visiting nurse or other home services: No Alcohol intake: never Patient Tobacco Use Status: Former Tobacco user Smoked in Last 30 Days: No Use of substances other than those prescribed or required for medical reasons: No Substance Use Frequency Other:: not since before november marijuana Advance Directives: Yes Advance Directives on File: Yes Advance Directives Date on File: 09/26/20 service: No Current occupational status: disabled Physical Exam Vital Signs: Vital Signs: Last Vital Signs Temp 98.2 F 03/18/22 19:43 Pulse 81 03/18/22 21:39 Resp 20 03/18/22 21:39 BP 163/94 H 03/18/22 21:39 Pulse Ox 99 03/18/22 21:39 O2 Del Method 03/18/22 21:39 O2 Flow Rate 2 03/18/22 21:39 BMI result Body Mass Index 47.8 Appearance: Alert. Oriented X3. No acute distress. Eyes: No pallor or icterus ENT: Pharynx normal. Oral Mucosa moist Neck: Normal inspection. Neck supple. CVS: Normal heart rate and rhythm. Pulses normal. Respiratory: No respiratory distress. Equal air entry bilateral, bilateral prolonged expiration with occasional crackles Abdomen: Soft and nontender. Bowel sounds are present, no mass palpable, no CVA tenderness Skin: Skin warm and dry. Normal skin color. Normal skin turgor. Extremities: No lower extremity edema. No calf tenderness Neuro: Oriented X 3. No motor deficit. No sensory deficit.No cerebellar signs , cranial nerves II-XII intact Medications Administered Discontinued Medications Generic Name Dose Route Start Last Admin Trade Name Freq PRN Reason Stop Dose Admin Albuterol Sulfate 2.5 mg/ 0 mg 03/18/22 21:03 03/18/22 21:16 Albuterol/Ipratropium 3 ml INHALE 03/18/22 21:04 5 each ONCE ONE Administration Medical Decision Making Medical Decision Making [facility] Narrative: Patient with chronic hypoxia as COPD influenza A chest x-ray showed left lower lobe opacity questionable effusion CT scan was done which showed inflammatory changes without significant effusion has lymph node secondary to lymphoma. during stay here pulse ox saturation was about 95% on 2 L of oxygen Discharge Plan Discharge Clinical Impression: Acute exacerbation of chronic obstructive pulmonary disease, Influenza A Patient Disposition: er [facility] Instructions: Influenza (ED), COPD (Chronic Obstructive Pulmonary Disease) (ED) Additional Instructions: Continue nebulizing treatment and oxygen. Your CT scan the chest showed chronic changes an inflammatory response to influenza A Prescriptions: No Action levothyroxine 175 mcg tablet 175 mcg PO DAILY@0600 citalopram 20 mg tablet 40 mg PO DAILY simvastatin 20 mg tablet 20 mg PO BEDTIME chlordiazepoxide HCl 10 mg capsule 10 mg PO BEDTIME hydroxychloroquine 200 mg tablet 200 mg PO BID Hold Instructions: Resume on 03/23/22. insulin lispro protamin-lispro 100 unit/mL (75-25) insulin pen 0 unit subcut TIDAC Protocol: Insulin Correction Scale Less than or equal to 110 ---- Give (units): 0 111 to 150 Give (units): 0 151 to 200 Give (units): 2 201 to 250 Give (units): 4 251 to 300 Give (units): 6 301 to 350 Give (units): 8 Greater than 350 Give (units): 10 Call MD if Blood Glucose > : 350 Januvia 100 mg tablet 100 mg PO DAILY multivitamin Tablet 1 tab PO DAILY aspirin 325 mg Tablet 325 mg PO DAILY amlodipine 10 mg tablet 10 mg PO DAILY Qty: 30 0RF latanoprost 0.005 % drops 1 drp ophthalmic (eye) BEDTIME nystatin 100,000 unit/gram Powder 1 appl topical BID 7 Days Qty: 30 0RF Protocol: Apply to: Apply to: intertriginous areas albuterol sulfate 0.63 mg/3 mL Solution For Nebulization 0.63 mg INHALATION Q4-6H PRN (Reason: Wheezing) sennosides [senna] 8.6 mg Tablet 17.2 mg PO DAILY PRN (Reason: Constipation) xzxwgmjpfd-qtzrpddkjihyy-zoev 50-325-40 mg tablet 1 tab PO QID PRN (Reason: Pain) prednisolone acetate 1 % drops,suspension 1 drp ophthalmic-Right QID bisacodyl 10 mg Suppository [address] DAILY PRN (Reason: Constipation) metoprolol tartrate 50 mg Tablet 50 mg PO BID timolol maleate 0.5 % drops 1 drp ophthalmic-Right BID coenzyme Q10 [CoQ-10] 100 mg Capsule 50 mg PO DAILY diclofenac sodium 1 % Gel 2 g TOPICAL QID Rx Instructions: apply to single elbow, wrist or hand; for hand includes palm/fingers/back of hand melatonin 5 mg Tablet 5 mg PO BEDTIME PRN (Reason: Sleep) Simbrinza 1-0.2 % drops,suspension 1 drp ophthalmic-Right BID riboflavin (vitamin B2) 400 mg Tablet 400 mg PO DAILY magnesium oxide 400 mg magnesium Tablet 400 mg PO DAILY insulin glargine [Lantus Solostar U-100 Insulin] 100 unit/mL (3 mL) insulin pen 35 unit subcut BEDTIME furosemide 40 mg tablet 40 mg PO DAILY Qty: 30 0RF Artificial Tears (cmc) 1 % Drops 1 drp OPHTHALMIC (EYE) BID ipratropium-albuterol 0.5 mg-3 mg(2.5 mg base)/3 mL Solution For Nebulization 3 ml inhalation RQ4H WHILE AWAKE Qty: 90 0RF oseltamivir [Tamiflu] 75 mg Capsule 75 mg PO BID Qty: 5 0RF cefuroxime axetil 500 mg Tablet 500 mg PO BID Qty: 6 0RF azithromycin 500 mg Tablet 500 mg PO DAILY Qty: 2 0RF prednisone 20 mg tablet 20 mg PO DAILY Qty: 5 0RF Interventions: ED Discharge Assessment Last Done: 03/18/22 21:45 Discharge Date/Time: 03/18/22 21:46
[2022-03-18 17:16] VITALS: BP 133/60; BP 170/90; PULSE 70; PULSE 71; RESP 18; TEMP 36.6; O2SAT 93; O2SAT 99; BMI 47.8
[2022-03-18 17:29] VITALS: BP 133/60; PULSE 71; RESP 18; TEMP 36.6; O2SAT 98
--- OUTSIDE RECORDS SUMMARY | 2022-03-18 17:40 | XMS_ITS ---
[...] Lf/0.5 mL Completed ? 02/06/2020 intramuscular syringe drzxtipakk-djptrputoohce-obzjlrfs 50 mg-325 mg-40 mg tablet Acti ve [...] Cataract Surgery Information not avai lable 04/04/1990 [employer] Shunt Placement Information not avai lable ? Tubal Ligation Information not avai lable ? Cholecystectomy Information not avai lable ? Appendectomy Information not avai lable ? Total Hysterectomy Information not avai lable Results Lab Results Date Name Specimen Result Interpretation Description Value Range Status Address ? 04/21/2021 HbA1C (Hemoglobin ? No observation ? ? ? [facility] a1C), Blood recorded. Ce nter (Medical Records): [address] [facility] 05/28/2020 CBC W/ Auto Diff ? No observation ? ? ? [facility] recorded. Center (Medical Records): [address] [facility] 05/28/2020 HbA1C (Hemoglobin ? No observation ? ? ? [facility] a1C), Blood recorded. nt (Medical Records): [address], [place] 05/28/2020 TSH + Free T4, ? No observation ? ? ? [facility] Serum recorded. [place] (Medical Records): [address], [place] 05/28/2020 CMP, Serum or ? No observation ? ? ? [facility] Plasma recorded. [place] (Medical Records): [address], [place] 01/22/2020 LDL, Serum ? Ldl 90 ? ? 01/22/2020 HbA1C (Hemoglobin ? A1C 7.1 ? ? a1C), Blood 11/16/2019 LDL, Serum ? Ldl 109 ? ? 11/16/2019 HbA1C (Hemoglobin ? A1C 9.1 ? ? a1C), Blood 11/12/2019 HbA1C (Hemoglobin ? No observation ? ? ? [facility] a1C), Blood recorded. [facility] : [address], [place] 11/12/2019 TSH + Free T4, ? No observation ? ? ? [facility] Serum recorded. [place] [facility] : [address], [place] 11/12/2019 Lipid Panel, Blood ? No observation ? ? ? [facility] recorded. [place] [facility] : [address], [place] 11/12/2019 CMP, Serum or ? No observation ? ? ? [facility] Plasma recorded. [place] [facility] : [address], [place] 02/27/2019 Fecal Occult ? No observation ? ? ? Blood, Stool recorded. 01/26/2019 Microalbumin, ? No observation ? ? ? [facility] Urine recorded. [place] [facility] : [address], [place] 01/26/2019 TSH + Free T4, ? No observation ? ? ? [facility] Serum recorded. [place] [facility] : [address], [place] 01/26/2019 Lipid Panel, Serum ? No observation ? ? ? [facility] recorded. [place] [facility] : [address], [place] 01/26/2019 Glycohemoglobin, ? No observation ? ? ? [facility] Total, Blood recorded. [facility] Laboratory : [address], [place] 01/26/2019 CMP, Serum or ? No observation ? ? ? [facility] Plasma recorded. [place] [facility] : [address], [place] 01/26/2019 LDL, Serum ? Ldl 88 ? ? 12/10/2017 LDL, Serum ? Ldl 90 ? ? 12/10/2017 HbA1C (Hemoglobin ? A1C 7.7 ? ? a1C), Blood 11/04/2017 CBC W/ Diff ? No observation ? ? ? [facility] recorded. [place] [facility] : [address], [place] 09/19/2017 Cbc ? No observation ? ? ? [facility] recorded. Center Laboratory : [address], [place] 09/19/2017 CMP, Serum or ? No observation ? ? ? [facility] Plasma recorded. [place] [facility] : [address], [place] 08/19/2017 Microalbumin/creat ? No observation ? ? ? [facility] inine, Ratio recorded. C enter Panel, Urine Labo ratory: [address], [place] 08/19/2017 Cbc ? No observation ? ? ? [facility] recorded. Center Laboratory : [address], [place] 08/19/2017 Glycohemoglobin, ? No observation ? ? ? [facility] Total, Blood recorded. C enter Laboratory : [address], [place] 08/19/2017 Lipid Panel, Serum ? No observation ? ? ? [facility] recorded. [place] [facility] : [address], [place] 08/19/2017 CMP, Serum or ? No observation ? ? ? [facility] Plasma recorded. [place] [facility] : [address], [place] 05/13/2017 HbA1C (Hemoglobin ? A1C 10.7 ? ? a1C), Blood Past Encounters Encounter Date Diagnosis Provider 10/26/2021 Hypoglycemia Renae Russell, Jose [facility] [place] [address], Ph. 04/29/2021 Diabetes Mellitus; Morbid Obesity; Tam Corea, DO: 6 [place] Depressive Disorder; [facility] [place] Dermatitis and Venous Ulcer of Lower [phone], Ph. Extremity Due to Chronic Peripheral Venous Hypertension; Insulin Treated Type 2 Diabetes Mellitus; Migraine without Aura; Normal Pressure Hydrocephalus; Chronic Kidney Disease Stage 2; Pre-existing Type 2 Diabetes Mellitus; Hypothyroidism; Renewal of Prescription 09/29/2020 Pre-surgery Evaluation Tam Corea , DO: 6 [facility] [address] [facility] [place] [address], Ph. Social History Tobacco Smoking Status Former [...]
[2022-03-18 19:43] VITALS: BP 150/54; PULSE 67; RESP 16; TEMP 36.8; O2SAT 100
--- NOTE | 2022-03-18 20:10 | PC.NURSE ---
PT taken to CT.
[2022-03-18] MEDS: Albuterol Sulfate 2.5 MG, Albuterol/Iprat 2.5/0.5MG 3 ML 3 ML INHALE (21:16)
[2022-03-18 21:19] VITALS: PULSE 65; RESP 18; O2SAT 100
--- NOTE | 2022-03-18 21:33 | PC.NURSE ---
Report given to [facility], spoke with Ree.
[2022-03-18 21:39] VITALS: BP 163/94; PULSE 81; RESP 20; O2SAT 99
--- NOTE | 2022-03-18 21:41 | MHC.EDTECH ---
pt was assisted onto bedpan ,pt void lg amount karla care given .
== END 2022-03-18 21:46 | disposition skilled nursing facility (03) ==
PROVIDERS: Emergency Provider Internal Medicine; PCP Internal Medicine
DX: J10.1 Influenza due to other identified influenza virus with other respiratory manifestations (principal); J44.1 Chronic obstructive pulmonary disease with (acute) exacerbation; R10.30 Lower abdominal pain, unspecified; Z79.899 Other long term (current) drug therapy; Z99.81 Dependence on supplemental oxygen
CPT/HCPCS: 71045; 71250; 94640; 99284

== ENCOUNTER 2022-04-27 10:15 | Emergency (ER) | payer MEDICARE, MEDICAID, SELFPAY ==
--- NOTE | ~2022-04-27 | XR_ITS ---
EXAMINATION: XR CHEST CLINICAL INFORMATION: Dyspnea. COMPARISON: 03/18/2022 chest radiograph. TECHNIQUE: Frontal view of the chest was obtained. FINDINGS: Rotated positioning is suboptimal. There are increased pulmonary vascular markings with mild bibasilar opacification, left greater than right. The heart is mildly enlarged. The mediastinal structures are unremarkable. XR/XR chest 1V IMPRESSION: CHF and bilateral pleural effusions, left greater than right with overall similar appearance.
--- NOTE | 2022-04-27 10:25 | ECG_ITS ---
Test Reason : DYSPNEA Blood Pressure : / mmHG Vent. Rate : 078 BPM Atrial Rate : 078 BPM P-R Int : 228 ms QRS Dur : 106 ms QT Int : 414 ms P-R-T Axes : 047 115 -10 degrees QTc Int : 471 ms Artifact in tracing Sinus rhythm with 1st degree A-V block Left posterior fascicular block Cannot rule out Anterior infarct , age undetermined T wave abnormality, consider inferior ischemia Abnormal ECG When compared with ECG of 14-MAR-2022 20:42, No significant changes seen Referred By: Viki Sutherland Electronically Signed By:HEATH JEONG
[2022-04-27 10:26] VITALS: BP 121/59; BP 142/67; PULSE 79; PULSE 80; RESP 24; TEMP 36.5; O2SAT 100; O2SAT 71; BMI 51.0
--- NOTE | 2022-04-27 10:30 | ED.SOB ---
HPI - SOB/Dyspnea General Chief Complaint: Dyspnea Stated Complaint: DIFF BREATHING,ON CPAP PER EMS Source: patient and old records reviewed Mode of arrival: ambulatory Limitations: no limitations History of Present Illness HPI Narrative: 72 yo female full code from [facility] of COPD, congestive heart failure, diabetes mellitus, CKD, hypertension, hypothyroidism, peripheral vascular disease EMS notes they were called for respiratory difficult - they found her confused with sats 71% given douneb and CPAP en route with good effect the patient notes her roommate is at the hospital with the flu. She notes wheezing, difficulty breathing and chest congestion since last night. MD elicited complaint: shortness of breath and cough Pertinent past history: COPD, asthma and congestive heart failure Onset (ago): day(s) (last night) Timing: constant Severity: severe Exacerbating factors: lying flat, exertion and coughing Relieving factors: oxygen, rest, bronchodilators and upright position Known history of: COPD and congestive heart failure Associated symptoms: cough and wheezing Treatment prior to arrival: oxygen, bronchodilator and NIPPV Related Data Home Medications Medication Instructions Recorded Confirmed aspirin 325 mg tablet 325 mg PO DAILY 10/08/21 04/27/22 chlordiazepoxide HCl 10 mg capsule 10 mg PO BEDTIME 10/08/21 04/27/22 citalopram 20 mg tablet 40 mg PO DAILY 10/08/21 04/27/22 hydroxychloroquine 200 mg tablet 200 mg PO BID 10/08/21 04/27/22 insulin lispro protamine-lispro 0 unit subcut TIDAC 10/08/21 04/27/22 100 unit/mL (75-25) subcutaneous pen levothyroxine 175 mcg tablet 175 mcg PO DAILY@0600 10/08/21 04/27/22 multivitamin 1 tab PO DAILY 10/08/21 04/27/22 simvastatin 20 mg tablet 20 mg PO BEDTIME 10/08/21 04/27/22 sitagliptin phosphate 100 mg 100 mg PO DAILY 10/08/21 04/27/22 tablet (Januvia) latanoprost 0.005 % eye drops 1 drp ophthalmic (eye) BEDTIME 11/20/21 04/27/22 albuterol sulfate 0.63 mg/3 mL 0.63 mg inhalation Q4-6H PRN 02/16/22 04/27/22 solution for nebulization Wheezing bisacodyl 10 mg rectal suppository 10 mg HI DAILY PRN Constipation 02/16/22 04/27/22 brinzolamide 1 %-brimonidine 0.2 % 1 drp ophthalmic-Right BID 02/16/22 04/27/22 eye drops,suspension (Simbrinza) xeewhembvl-unvxjotmzprtr-igbmatyu 1 tab PO QID PRN Pain 02/16/22 04/27/22 50 mg-325 mg-40 mg tablet coenzyme Q10 100 mg capsule 50 mg PO DAILY 02/16/22 04/27/22 (CoQ-10) insulin glargine 100 unit/mL (3 20 unit subcut BEDTIME 02/16/22 04/27/22 mL) subcutaneous pen (Lantus Solostar U-100 Insulin) magnesium oxide 400 mg PO DAILY 02/16/22 04/27/22 melatonin 5 mg tablet 5 mg PO BEDTIME PRN Sleep 02/16/22 04/27/22 metoprolol tartrate 50 mg tablet 50 mg PO BID 02/16/22 04/27/22 prednisolone acetate 1 % eye 1 drp ophthalmic-Right QID 02/16/22 04/27/22 drops,suspension riboflavin (vitamin B2) 400 mg 400 mg PO DAILY 02/16/22 04/27/22 tablet sennosides 8.6 mg tablet (senna) 17.2 mg PO DAILY PRN Constipation 02/16/22 04/27/22 timolol maleate 0.5 % eye drops 1 drp ophthalmic-Right BID 02/16/22 04/27/22 carboxymethylcellulose sodium 1 % 1 drp ophthalmic (eye) BID 03/15/22 04/27/22 eye drops (Artificial Tears (carboxymethylcellulose)) acetaminophen 325 mg tablet 650 mg PO Q4H PRN Pain 04/27/22 04/27/22 biotin 5 mg capsule 5 mg PO DAILY 04/27/22 04/27/22 budesonide-formoterol HFA 160 2 puff inhalation BID 04/27/22 04/27/22 mcg-4.5 mcg/actuation aerosol inhaler (Symbicort) diclofenac sodium 1 % topical gel 4 g topical QID 04/27/22 04/27/22 furosemide 40 mg tablet 1 tab PO DAILY@1200 04/27/22 04/27/22 furosemide 40 mg tablet 60 mg PO DAILY 04/27/22 04/27/22 hydroxyzine HCl 25 mg tablet 1 tab PO DAILY 04/27/22 04/27/22 prednisone 20 mg tablet See Taper PO DAILY 04/27/22 04/27/22 umeclidinium 62.5 mcg/actuation 1 inh inhalation DAILY 04/27/22 04/27/22 blister powder for inhalation (Incruse Ellipta) Previous Rx's Medication Instructions Recorded amlodipine 10 mg tablet 10 mg PO DAILY #30 tabs 10/16/21 nystatin 100,000 unit/gram topical 1 appl topical BID 7 days #30 grams 12/23/21 powder ipratropium 0.5 mg-albuterol 3 mg 3 ml inhalation RQ4H WHILE AWAKE 03/17/22 (2.5 mg base)/3 mL nebulization #90 mL soln nirmatrelvir 150 mg-ritonavir 100 See Rx Instructions PO .COMPLEX 04/27/22 mg tablets in a dose pack (EUA) #20 ea (Paxlovid) Allergies Allergy/AdvReac Type Severity Reaction Status Date / Time oxycodone [From Percocet] Allergy Intermediate Rash Verified 04/27/22 11:42 lisinopril Allergy Unknown Unknown Verified 04/27/22 11:42 Review of Systems Review of Systems: Constitutional : No Fever, No Chills ENT/Mouth : No sore throat, No Rhinorrhea, No Swallowing Difficulty Eyes: No Eye Pain, No Swelling, No Redness Cardiovascular : No Chest Pain, positive SOB, No Orthopnea, positive Edema Respiratory : pos Cough, No Sputum, pos Wheezing, positive dyspnea Gastrointestinal : No Nausea, No Vomiting, No Diarrhea, No abdominal Pain, No Hematochezia, No Melena Genitourinary : No Dysuria, No Urinary Frequency, No Hematuria Musculoskeletal : No joint pain, No Myalgias Skin : No Skin Lesions, No rash Neuro : No Weakness, No Numbness, No Dizziness, No Headache Psych : No Anxiety/Panic, No Depression Heme/Lymph: No Bruising, No Lymphadenopathy Endocrine : No Polyuria, No Polydipsia All other systems reviewed and are negative [facility] Past Medical History Attestation statement: The following information was validated with the patient. Medical History CKD (chronic kidney disease) CLL (chronic lymphocytic leukemia) Congestive heart failure COVID Diabetes mellitus with insulin therapy Essential hypertension HLD (hyperlipidemia) HTN (hypertension) Hypothyroidism Hypoxia Infection with ESBL Klebsiella oxytoca Klebsiella pneumonia Lower extremity edema Lymphadenopathy, mediastinal Migraine Obesity Pleural effusion Pseudotumor cerebri PVD (peripheral vascular disease) Suspected deep tissue injury Surgical History H/O cataract extraction H/O hysterectomy for benign disease Hx of cholecystectomy S/P appendectomy Family History Family History Mother Heart attack, Onset Age: 92 Father Heart attack, Onset Age: 66 Other Diabetes Social History Social History Household Members: Family Household Members Other:: patient came from a rehab facility, been there since dec Housing: House Do you presently have visiting nurse or other home services: No Alcohol intake: never Patient Tobacco Use Status: Former Tobacco user Smoked in Last 30 Days: No Use of substances other than those prescribed or required for medical reasons: No Advance Directives: Yes Advance Directives on File: Yes Advance Directives Date on File: 09/26/20 service: No Current occupational status: disabled Physical Exam Vital Signs: Vital Signs: Last Vital Signs Temp 97.6 F 04/27/22 13:00 Pulse 76 04/27/22 13:00 Resp 20 04/27/22 13:00 BP 159/71 H 04/27/22 13:00 Pulse Ox 98 04/27/22 13:00 O2 Del Method 04/27/22 13:00 O2 Flow Rate 4 04/27/22 13:00 BMI result Body Mass Index 51.0 Appearance: Alert. Oriented X3. Mild acute distress. Eyes: Pupils equal, round and reactive to light. ENT: Pharynx normal. Neck: Normal inspection. Neck supple. CVS: Normal heart rate and rhythm. Pulses normal. Respiratory: Mild respiratory distress - tachypnea audible wheezes, retractions Breath sounds diffuse wheezes, rales at bases Abdomen: Soft and nontender. Skin: Skin warm and dry. Normal skin color. Normal skin turgor. Extremities: 1 to 2+ pitting lower extremity edema. No calf ttp Neuro: Oriented X 3. No motor deficit. No sensory deficit. Course Course Course Narrative: improving on bipap will take off bipap doing well VBG normal doing great on her home O2 4L NC trop flat with symptoms since last night, BNP not higher than usual chronically high WBC counts off bipap for hours now at baseline no increased O2 demands no change from baseline work of breathing or change in CXR can be DC home on paxlovid 4 drug interactions with paxlovid - discussed them and the patient wants to proceed feels well enough to go back and niece at bedside agrees no chest pain doubt VTE Medications Administered Discontinued Medications Generic Name Dose Route Start Last Admin Trade Name Charlieq PRN Reason Stop Dose Admin Albuterol Sulfate 2.5 mg 04/27/22 10:24 04/27/22 10:33 Albuterol Sulfate (0.083%) 2.5 Mg/3 Ml Vial.Neb INHALE 04/27/22 10:25 2.5 mg ONCE ONE Administration Albuterol Sulfate 5 mg/ 7.5 mg 04/27/22 10:37 04/27/22 10:40 Albuterol Sulfate 2.5 mg INHALE 04/27/22 10:38 7.5 mg ONCE ONE Administration Furosemide 40 mg 04/27/22 10:24 04/27/22 11:06 Furosemide 40 Mg/4 Ml Vial IVPUSH 04/27/22 10:25 40 mg STAT STA Administration Protocol Methylprednisolone Sodium Succinate 60 mg 04/27/22 10:24 04/27/22 11:05 Methylprednisolone Sod Succ 125 Mg/2 Ml Vial IVPUSH 04/27/22 10:25 60 mg ONCE ONE Administration Medical Decision Making Medical Decision Making [facility] Narrative: 72 yo female full code from [facility] of COPD prior failure of NIPPV needing intubation, congestive heart failure, diabetes mellitus, CKD, hypertension, hypothyroidism, peripheral vascular disease here with c/o dyspnea, hypoxia and suspect some hypercarbia - at this time, IV steroids, hour long, neb will continue bipap - obtain lactic acid, VBG, cultures, CXR for pneumonia - Viral panel as she states her roommate had the flu. Likely admit. Differential Diagnosis Differential Diagnoses: The differential diagnosis associated with the presentation includes COPD, CHF, pneumonia, viral illness Admission/Observation Consideration of admission/observation: Escalation of care including admission/observation considered Consult Healthcare Provider Management of the patient was discussed with: Stone [employer]aster Lab Data [facility] Lab Attestation statement: I reviewed the patient's lab results. COVID + WBC stable for patient, BNP lower than baseline 04/27/22 11:48 04/27/22 11:48 Labs: Lab Results 04/27/22 04/27/22 04/27/22 Range/Units 10:59 11:48 11:48 WBC 19.9 H (4.8-10.8) X10*3/uL RBC 4.37 (4.20-5.50) X10*6/uL Hgb 11.7 L (12.0-16.0) g/dl Hct 38.2 (37.0-47.0) % MCV 87.4 (80.0-98.0) fL MCH 26.8 L (27.0-33.0) pg MCHC 30.6 L (31.0-35.0) g/dl RDW 14.1 (11.0-16.0) % Plt Count 262 (160-400) X10*3/uL MPV 11.0 (9.4-12.3) fL Immature Gran % (Auto) 2.3 H (0.0-0.4) % Neut % (Auto) 74.8 H (45-73) % Lymph % (Auto) 6.7 L (20-40) % [place] % (Auto) 9.6 (2-11) % Eos % (Auto) 5.6 H (0-4) % Baso % (Auto) 1.0 (0-2) % Lymph # (Auto) 1.3 (1.2-4.9) X10*3/uL [place] # (Auto) 1.9 H (0.1-1.2) X10*3/uL Eos # (Auto) 1.1 H (0.0-0.4) X10*3/uL Baso # (Auto) 0.2 (0.0-0.2) X10*3/uL Abs Immat Gran (auto) 0.46 H (0.00-0.03) X10*3/uL Absolute Neuts (auto) 14.9 H (2.0-8.3) x10*3/uL Absolute Nucleated RBC 0.000 (0.0-0.012) X10*3/uL Nucleated RBC % (auto) 0.0 (0.0-0.2) /100WBC Smear Tech's Comments VERIFIED PT (10.0-13.1) SEC INR (0.9-1.1) VBG pH (7.32-7.43) VBG pCO2 mmHg VBG pO2 mmHg VBG HCO3 (22-26) mmol/L VBG O2 Saturation % VBG Base Excess mmol/L Sodium 137 (135-145) mmol/L Potassium 5.0 (3.3-5.1) mmol/L Chloride 100 (96-108) mmol/L Carbon Dioxide 26 (22-29) mmol/L Anion Gap 16 (12-20) BUN 38 H (9-16) mg/dL Creatinine 1.23 (0.5-1.4) mg/dL Estim Creat Clear Calc 55.4 Estimated GFR 43 Random Glucose 332 H (60-115) mg/dL Lactic Acid (0.5-2.0) mmol/L Calcium 8.5 D (8.4-10.2) mg/dL Magnesium 2.4 (1.6-2.6) mg/dL Total Bilirubin 0.4 (0.0-1.0) mg/dL Direct Bilirubin < 0.2 (0.0-0.5) mg/dL AST 14 (5-31) U/L ALT 8 (0-31) U/L Alkaline Phosphatase 72 (39-117) U/L Troponin I High Sens (<3.5-17.0) ng/L B-Natriuretic Peptide (<100) pg/mL Total Protein 7.0 (6.5-8.0) g/dL Albumin 3.2 L (3.5-5.0) g/dL Influenza Type A (PCR) NEGATIVE (Negative) Influenza Type B (PCR) NEGATIVE (Negative) RSV RNA Qual (PCR) NEGATIVE (Negative) SARS-CoV-2 RNA (RT-PCR) POSITIVE A (Negative) 04/27/22 04/27/22 04/27/22 Range/Units 11:48 11:48 11:48 WBC (4.8-10.8) X10*3/uL RBC (4.20-5.50) X10*6/uL Hgb (12.0-16.0) g/dl Hct (37.0-47.0) % MCV (80.0-98.0) fL MCH (27.0-33.0) pg MCHC (31.0-35.0) g/dl RDW (11.0-16.0) % Plt Count (160-400) X10*3/uL MPV (9.4-12.3) fL Immature Gran % (Auto) (0.0-0.4) % Neut % (Auto) (45-73) % Lymph % (Auto) (20-40) % [place] % (Auto) (2-11) % Eos % (Auto) (0-4) % Baso % (Auto) (0-2) % Lymph # (Auto) (1.2-4.9) X10*3/uL [place] # (Auto) (0.1-1.2) X10*3/uL Eos # (Auto) (0.0-0.4) X10*3/uL Baso # (Auto) (0.0-0.2) X10*3/uL Abs Immat Gran (auto) (0.00-0.03) X10*3/uL Absolute Neuts (auto) (2.0-8.3) x10*3/uL Absolute Nucleated RBC (0.0-0.012) X10*3/uL Nucleated RBC % (auto) (0.0-0.2) /100WBC Smear Tech's Comments PT 11.0 (10.0-13.1) SEC INR 1.0 (0.9-1.1) VBG pH (7.32-7.43) VBG pCO2 mmHg VBG pO2 mmHg VBG HCO3 (22-26) mmol/L VBG O2 Saturation % VBG Base Excess mmol/L Sodium (135-145) mmol/L Potassium (3.3-5.1) mmol/L Chloride (96-108) mmol/L Carbon Dioxide (22-29) mmol/L Anion Gap (12-20) BUN (9-16) mg/dL Creatinine (0.5-1.4) mg/dL Estim Creat Clear Calc Estimated GFR Random Glucose (60-115) mg/dL Lactic Acid 1.5 (0.5-2.0) mmol/L Calcium (8.4-10.2) mg/dL Magnesium (1.6-2.6) mg/dL Total Bilirubin (0.0-1.0) mg/dL Direct Bilirubin (0.0-0.5) mg/dL AST (5-31) U/L ALT (0-31) U/L Alkaline Phosphatase (39-117) U/L Troponin I High Sens (<3.5-17.0) ng/L B-Natriuretic Peptide 356 H (<100) pg/mL Total Protein (6.5-8.0) g/dL Albumin (3.5-5.0) g/dL Influenza Type A (PCR) (Negative) Influenza Type B (PCR) (Negative) RSV RNA Qual (PCR) (Negative) SARS-CoV-2 RNA (RT-PCR) (Negative) 04/27/22 04/27/22 Range/Units 11:49 11:55 WBC (4.8-10.8) X10*3/uL RBC (4.20-5.50) X10*6/uL Hgb (12.0-16.0) g/dl Hct (37.0-47.0) % MCV (80.0-98.0) fL MCH (27.0-33.0) pg MCHC (31.0-35.0) g/dl RDW (11.0-16.0) % Plt Count (160-400) X10*3/uL MPV (9.4-12.3) fL Immature Gran % (Auto) (0.0-0.4) % Neut % (Auto) (45-73) % Lymph % (Auto) (20-40) % [place] % (Auto) (2-11) % Eos % (Auto) (0-4) % Baso % (Auto) (0-2) % Lymph # (Auto) (1.2-4.9) X10*3/uL [place] # (Auto) (0.1-1.2) X10*3/uL Eos # (Auto) (0.0-0.4) X10*3/uL Baso # (Auto) (0.0-0.2) X10*3/uL Abs Immat Gran (auto) (0.00-0.03) X10*3/uL Absolute Neuts (auto) (2.0-8.3) x10*3/uL Absolute Nucleated RBC (0.0-0.012) X10*3/uL Nucleated RBC % (auto) (0.0-0.2) /100WBC Smear Tech's Comments PT (10.0-13.1) SEC INR (0.9-1.1) VBG pH 7.32 (7.32-7.43) VBG pCO2 61 mmHg VBG pO2 48 mmHg VBG HCO3 32 H (22-26) mmol/L VBG O2 Saturation 75.0 % VBG Base Excess 5.0 mmol/L Sodium (135-145) mmol/L Potassium (3.3-5.1) mmol/L Chloride (96-108) mmol/L Carbon Dioxide (22-29) mmol/L Anion Gap (12-20) BUN (9-16) mg/dL Creatinine (0.5-1.4) mg/dL Estim Creat Clear Calc Estimated GFR Random Glucose (60-115) mg/dL Lactic Acid (0.5-2.0) mmol/L Calcium (8.4-10.2) mg/dL Magnesium (1.6-2.6) mg/dL Total Bilirubin (0.0-1.0) mg/dL Direct Bilirubin (0.0-0.5) mg/dL AST (5-31) U/L ALT (0-31) U/L Alkaline Phosphatase (39-117) U/L Troponin I High Sens 7.9 D (<3.5-17.0) ng/L B-Natriuretic Peptide (<100) pg/mL Total Protein (6.5-8.0) g/dL Albumin (3.5-5.0) g/dL Influenza Type A (PCR) (Negative) Influenza Type B (PCR) (Negative) RSV RNA Qual (PCR) (Negative) SARS-CoV-2 RNA (RT-PCR) (Negative) ABG Data Attestation ABG: I personally reviewed and interpreted this ABG as follows: Independent Interpretation I performed an independent interpretation of an: EKG and Plain X-Ray Interpretation: Rate: 78 Rhythm: NSR Climax: normal Normal P waves. Normal KAPIL. Normal QRS complex. ST T wave : no BRANDO, inverted t waves III and aVF qTC: normal prior studies: no sig change from prior The study has been interpreted contemporaneously by me. . CXR unchanged from march Independent Historian Clinical information obtained from an independent historian. History obtained from or confirmed by: Other (family) External Record Review External record reviewed: Inpatient record Prescription Management I considered prescription management with: Antiviral Critical Care Time Critical Care Time Critical Care Time: Yes Total Critical Care Time: 45 Attestation: review of records, discusson with family and patient, bipap I attest to this time spent taking care of the patient Discharge Plan Discharge Clinical Impression: COVID-19, Chronic obstructive pulmonary disease with (acute) exacerbation Congestive heart failure Qualifiers: Heart failure type: diastolic Heart failure chronicity: acute on chronic Qualified Code(s): I50.33 - Acute on chronic diastolic (congestive) heart failure Patient Disposition: er [facility] Transfer Details: BACK TO [facility] [address] Instructions: Heart Failure (ED), COPD (Chronic Obstructive Pulmonary Disease) (ED), COVID-19 (Coronavirus Disease 2019) (ED) Additional Instructions: return to ED for any worsening symptoms or concerns CXR unchanged, was on bipap for a little bit. increase steroids to 40mg prednisone for 7 days. take lasix tonight. given IV dose in the ED. return for increased confusion, vomiting, weakness, fevers - monitor O2 sats return for sats less than 91% on her usual O2 with increased work of breathing patient wants paxlovid - she will have to stop her amlodipine, librium, plaquenil, simvastatin, fioricet for 5 days. Prescriptions: New Paxlovid (EUA) 150-100 mg tablets,dose pack See Rx Instructions .ROUTE .COMPLEX Qty: 20 0RF Rx Instructions: take ONE 150 mg tablet of nirmatrelvir with ONE 100 mg tablet of ritonavir twice daily for 5 days No Action levothyroxine 175 mcg tablet 175 mcg PO DAILY@0600 citalopram 20 mg tablet 40 mg PO DAILY simvastatin 20 mg tablet 20 mg PO BEDTIME chlordiazepoxide HCl 10 mg capsule 10 mg PO BEDTIME hydroxychloroquine 200 mg tablet 200 mg PO BID Hold Instructions: Resume on 03/23/22. insulin lispro protamin-lispro 100 unit/mL (75-25) insulin pen 0 unit subcut TIDAC Protocol: Insulin Correction Scale Less than or equal to 110 ---- Give (units): 0 111 to 150 Give (units): 0 151 to 200 Give (units): 2 201 to 250 Give (units): 4 251 to 300 Give (units): 6 301 to 350 Give (units): 8 Greater than 350 Give (units): 10 Call MD if Blood Glucose > : 350 Januvia 100 mg tablet 100 mg PO DAILY multivitamin Tablet 1 tab PO DAILY aspirin 325 mg Tablet 325 mg PO DAILY amlodipine 10 mg tablet 10 mg PO DAILY Qty: 30 0RF furosemide 40 mg tablet 1 tab PO DAILY@1200 biotin 5 mg Capsule 5 mg PO DAILY hydroxyzine HCl 25 mg tablet 1 tab PO DAILY furosemide 40 mg tablet 60 mg PO DAILY Incruse Ellipta 62.5 mcg/actuation Blister With Device 1 inh INHALATION DAILY acetaminophen 325 mg Tablet 650 mg PO Q4H PRN (Reason: Pain) budesonide-formoterol [Symbicort] 160-4.5 mcg/actuation Hfa Aerosol Inhaler 2 puff INHALATION BID diclofenac sodium 1 % Gel 4 g TOPICAL QID Rx Instructions: apply to single knee, ankle, foot; for foot includes sole/toes/top of foot prednisone 20 mg tablet See Taper PO DAILY Taper: Prednisone 40 mg daily for 2 Days and 0 Hour 35 mg daily for 7 Days and 0 Hour 30 mg daily for 7 Days and 0 Hour 25 mg daily for 7 Days and 0 Hour 20 mg daily for 7 Days and 0 Hour 15 mg daily for 7 Days and 0 Hour 10 mg daily for 7 Days and 0 Hour 5 mg daily for 50 Days and 0 Hour Rx Instructions: STARTED AT 40 MG DROP BY 5 MG EVERY WEEK UNTIL GETTING TO 5MG DAILY latanoprost 0.005 % drops 1 drp ophthalmic (eye) BEDTIME nystatin 100,000 unit/gram Powder 1 appl topical BID 7 Days Qty: 30 0RF Protocol: Apply to: Apply to: intertriginous areas albuterol sulfate 0.63 mg/3 mL Solution For Nebulization 0.63 mg INHALATION Q4-6H PRN (Reason: Wheezing) sennosides [senna] 8.6 mg Tablet 17.2 mg PO DAILY PRN (Reason: Constipation) yscrpfiteq-kleilxtrfclhn-agdv 50-325-40 mg tablet 1 tab PO QID PRN (Reason: Pain) prednisolone acetate 1 % drops,suspension 1 drp ophthalmic-Right QID bisacodyl 10 mg Suppository 10 mg HI DAILY PRN (Reason: Constipation) metoprolol tartrate 50 mg Tablet 50 mg PO BID timolol maleate 0.5 % drops 1 drp ophthalmic-Right BID coenzyme Q10 [CoQ-10] 100 mg Capsule 50 mg PO DAILY melatonin 5 mg Tablet 5 mg PO BEDTIME PRN (Reason: Sleep) Simbrinza 1-0.2 % drops,suspension 1 drp ophthalmic-Right BID riboflavin (vitamin B2) 400 mg Tablet 400 mg PO DAILY magnesium oxide 400 mg magnesium Tablet 400 mg PO DAILY insulin glargine [Lantus Solostar U-100 Insulin] 100 unit/mL (3 mL) insulin pen 20 unit subcut BEDTIME Artificial Tears (cmc) 1 % Drops 1 drp OPHTHALMIC (EYE) BID ipratropium-albuterol 0.5 mg-3 mg(2.5 mg base)/3 mL Solution For Nebulization 3 ml inhalation RQ4H WHILE AWAKE Qty: 90 0RF Interventions: ED Discharge Assessment Last Done: 04/27/22 16:29 Discharge Date/Time: 04/27/22 16:29
[2022-04-27 10:33] VITALS: PULSE 79; RESP 18; O2SAT 100
[2022-04-27] MEDS: Albuterol Sulfate (0.083%) 2.5 MG/3 ML VIAL.NEB INHALE (10:33)
[2022-04-27 10:40] VITALS: PULSE 79; RESP 18; O2SAT 100
[2022-04-27] MEDS: Albuterol Sulfate 5 MG, Albuterol Sulfate (0.083%) 2.5 MG 7.5 MG INHALE (10:40)
[2022-04-27] MEDS: methylPREDNISolone Sod Succ 125 MG/2 ML VIAL 60 MG IVPUSH (11:05)
[2022-04-27] MEDS: Furosemide 40 MG/4 ML VIAL IVPUSH (11:06)
[2022-04-27 11:09] VITALS: PULSE 79; RESP 28; O2SAT 95
--- NOTE | 2022-04-27 11:38 | PC.NURSE ---
patient a&ox3, ekg performed, threat monitoring analyst applied-nsr, pure wick inserted, respiratory at bedside performed updraft and patient placed back on bipap 10/5, 32% O2, rr26, pt difficult stick- iv inserted after multiple attempts, phlebotomy called for labs after multiple attempts, nasal swab obtained. pt lungs in/ex wheezing, rhonchi upper- accessory muscle use, pt medicated per order, family at bedside, call morocho within reach, will continue to monitor.
[2022-04-27 11:48] VITALS: BP 150/65; PULSE 78; RESP 19; O2SAT 95
--- NOTE | 2022-04-27 11:48 | PC.NURSE ---
phlebotomy obtained labs
[2022-04-27 11:50] LABS: Influenza A PCR NEGATIVE (Negative); Influenza B PCR NEGATIVE (Negative); Resp Syncy Virus RNA Qual PCR NEGATIVE (Negative); SARS COV2 PCR INHOUSE POSITIVE (Negative)
[2022-04-27 11:58] LABS: Venous Blood Gas Refer to POC result
[2022-04-27 12:00] LABS: VBG HCO3 32 mmol/L (22-26); VBG pCO2 61 mmHg; VBG pH 7.32 (7.32-7.43); VBG pO2 48 mmHg
[2022-04-27 12:02] LABS: Basophils Absolute Auto 0.2 X10*3/uL (0.0-0.2); Eosinophils Absolute Auto 1.1 X10*3/uL (0.0-0.4); Eosinophils Percent Auto 5.6 % (0-4); Hematocrit 38.2 % (37.0-47.0); Hemoglobin 11.7 g/dl (12.0-16.0); Imm Gran Abs Auto 0.46 X10*3/uL (0.00-0.03); Imm Gran Pct Auto 2.3 % (0.0-0.4); Lymphocytes Absolute Auto 1.3 X10*3/uL (1.2-4.9); Lymphocytes Percent Auto 6.7 % (20-40); MANUAL DIFF FLAG SCAN; Mean Corpuscular HGB Conc 30.6 g/dl (31.0-35.0); Mean Corpuscular Hemoglobin 26.8 pg (27.0-33.0); Mean Corpuscular Volume 87.4 fL (80.0-98.0); Monocytes Absolute Auto 1.9 X10*3/uL (0.1-1.2); Monocytes Percent Auto 9.6 % (2-11); Neutrophils Absolute Auto 14.9 x10*3/uL (2.0-8.3); Neutrophils Percent Auto 74.8 % (45-73); Platelet Count 262 X10*3/uL (160-400); Red Blood Count 4.37 X10*6/uL (4.20-5.50); Red Cell Distribution Width 14.1 % (11.0-16.0); SCAN SMEAR FLAG 1; White Blood Count 19.9 X10*3/uL (4.8-10.8)
[2022-04-27 12:11] LABS: Lactic Acid 1.5 mmol/L (0.5-2.0)
[2022-04-27 12:18] LABS: B Type Natriuretic Peptide 356 pg/mL (<100)
[2022-04-27 12:19] LABS: Troponin-I High Sensitivity 7.9 ng/L (<3.5-17.0)
[2022-04-27 12:27] LABS: SLIDE REVIEW VERIFIED
[2022-04-27 12:30] LABS: Alanine Aminotransferase 8 U/L (0-31); Albumin Level 3.2 g/dL (3.5-5.0); Alkaline Phosphatase 72 U/L (39-117); Anion Gap 16 (12-20); Aspartate Amino Transferase 14 U/L (5-31); Bilirubin Direct < 0.2 mg/dL (0.0-0.5); Bilirubin Total 0.4 mg/dL (0.0-1.0); Blood Urea Nitrogen 38 mg/dL (9-16); Calcium 8.5 mg/dL (8.4-10.2); Carbon Dioxide 26 mmol/L (22-29); Chloride 100 mmol/L (96-108); Creatinine Clr Calc Pharmacy 55.4; Estimated Glomerular Filt Rate 43; Glucose Random 332 mg/dL (60-115); Magnesium 2.4 mg/dL (1.6-2.6); Sodium 137 mmol/L (135-145)
[2022-04-27 13:00] VITALS: BP 159/71; PULSE 76; RESP 20; TEMP 36.4; O2SAT 98
--- NOTE | 2022-04-27 13:01 | PC.NURSE ---
patient a&ox3, vehicle monitor technician intact, pt now speaking in full sentences, pt has wet sounding cough, lungs diminished throughout, pure wick intact and draining, call morocho within reach, family at bedside, will continue to monitor
--- NOTE | 2022-04-27 14:04 | PHA.MEDREC ---
Pharmacy Consult ? Medication Reconciliation Pharmacy has completed the medication reconciliation.
--- NOTE | 2022-04-27 15:54 | PC.NURSE ---
this nurse [facility] to give report without success, this nurse spoke with the patients family member in room 2 who stated she has a difficult time calling herself. oskar the nursing home assistant administrator was called [phone] who was working on phone issues
--- NOTE | 2022-04-27 16:05 | PC.NURSE ---
this nurse spoke with the charge nurse jojo who gave me to the patients nurse to give report, the understand that the patient is covid positive and is able to return to the facility.
== END 2022-04-27 16:29 | disposition skilled nursing facility (03) ==
PROVIDERS: Emergency Provider Emergency Medicine; PCP Internal Medicine
DX: U07.1 COVID-19 (principal); I50.33 Acute on chronic diastolic (congestive) heart failure; J44.1 Chronic obstructive pulmonary disease with (acute) exacerbation; R06.02 Shortness of breath; Z79.899 Other long term (current) drug therapy; Z99.81 Dependence on supplemental oxygen
CPT/HCPCS: 0241U; 36415; 71045; 80048; 80076; 82803; 83605; 83735; 83880; 84484; 85025; 85610; 87040; 93005; 94640; 96374; 96375; 99285; J1940; J2930

== ENCOUNTER 2022-04-28 14:29 | Inpatient (IN) | payer MEDICARE, MEDICAID, SELFPAY ==
[2022-04-28] VITALS (11 sets, daily range): BP systolic 131–165; BP diastolic 50–111; PULSE 66–73; RESP 16–27; TEMP 36.6; O2SAT 90–98; BMI 46.9
--- NOTE | ~2022-04-28 | XR_ITS ---
EXAMINATION: XR CHEST CLINICAL INFORMATION: Short of breath COMPARISON: 04/27/2022 TECHNIQUE: Frontal view of the chest was obtained. FINDINGS: Lung volumes are low. Similar appearance of bilateral pleural effusions, left greater than right. Prominent interstitial markings. No pneumothorax. The cardiomediastinal silhouette is unchanged, with a calcified aorta. XR/XR chest 1V IMPRESSION: Similar appearance to prior. Bilateral pleural effusions with interstitial edema.
--- NOTE | ~2022-04-28 | XR_ITS ---
EXAMINATION: XR CHEST CLINICAL INFORMATION: Atelectasis right middle lobe, moderate bilateral effusions, greater on right. Follow-up. COMPARISON: CT chest 04/28/2022, chest radiographs 04/28/2022, 04/27/2022, 03/18/2022 TECHNIQUE: 4 portable views of the right breast are obtained, 2 AP upright and 2 lateral. FINDINGS: Right middle lobe atelectasis is decreased from prior exam 04/28/2022. Subsegmental atelectasis left midlung zone stable. There are stable effusions, greater on left. Enlarged cardiopericardial silhouette is similar to prior exam. There is even distribution pulmonary vascularity suggesting elevated pulmonary venous pressures. XR/XR chest 2V IMPRESSION: 1. Right middle lobe atelectasis decreased from prior exam 04/28/2022. 2. Subsegmental atelectasis left midlung zone stable. 3. Small effusions, greater on left.
--- NOTE | ~2022-04-28 | CT_ITS ---
EXAMINATION: CT CHEST WITHOUT CONTRAST CLINICAL INFORMATION: Covid 19. COMPARISON: Chest x-ray 04/28/2022 TECHNIQUE: Multidetector volumetric CT imaging of the chest was done. Axial MIP volume rendering provided. Sagittal and coronal reformatted images were obtained. This CT examination was performed using dose optimization techniques as appropriate, variously including the following: *Automated exposure control *Adjustment of mA and/or kV according to patient size (this includes techniques or standardized protocols for targeted exams where dose is matched to indication/reason for exam; i.e. extremities or head) *Use of iterative reconstruction technique DLP: 626 mGy-cm FINDINGS: RECREATION THERAPY AIDES TEACHER: Somewhat expanded lungs with haziness in left lung base. Cardiomegaly. LUNGS: The lungs are somewhat expanded with dependent airspace opacity in the posterior segment of left upper lobe and lingula.. There is right middle lobe infiltrate/atelectasis with collapse. MEDIASTINUM: At size enlarged with dense mitral valve calcification. There are numerous abnormal mediastinal lymph nodes largest measuring 1.5 cm suspect right hilar adenopathy with likely obstructive right middle lobe bronchus. The thoracic aorta is atherosclerotic and calcified. No aneurysm seen. CORONARY ARTERY CALCIFICATION: There is moderate coronary artery calcifications PLEURA: There are bilateral moderate pleural effusions right greater than left. No calcified pleural plaques seen. AXILLA: There are small reactive bilateral axillary lymph nodes noted. UPPER ABDOMEN: Visualized liver, spleen, pancreas appears unremarkable. OSSEOUS STRUCTURES: No aggressive lytic or sclerotic process seen. There is mild ventral spondylosis with calcification of anterior longitudinal ligament in the mid and lower dorsal spine. CT/CT chest wo IV con IMPRESSION: Bilateral moderate pleural effusions greater on the right. Bilateral dependent infiltrates in both lower lobe and left upper lobe. There is a right middle lobe collapse with a right hilar soft tissue density mass likely obstructing right middle lobe bronchus. Abnormal mediastinal and bilateral axillary lymphadenopathy. Question inflammatory or infectious etiology. Fleischner guidelines were followed.
--- NOTE | 2022-04-28 14:42 | ECG_ITS ---
Test Reason : DYSPNEA Blood Pressure : / mmHG Vent. Rate : 066 BPM Atrial Rate : 066 BPM P-R Int : 208 ms QRS Dur : 108 ms QT Int : 444 ms P-R-T Axes : 047 101 002 degrees QTc Int : 465 ms Poor data quality, interpretation may be adversely affected Normal sinus rhythm Rightward axis Borderline ECG When compared with ECG of 27-APR-2022 10:34, No significant changes seen Referred By: Aniket Small Electronically Signed By:HEATH JEONG
--- NOTE | 2022-04-28 14:45 | ED_ITS ---
HPI - SOB/Dyspnea General Chief Complaint: Dyspnea Stated Complaint: SOB, +covid per EMS Time Seen by Provider: 04/28/22 14:30 Source: patient, EMS and old records reviewed Limitations: no limitations History of Present Illness HPI Narrative: Patient presents with a chief complaint of shortness of breath. She has a history of oxygen dependent COPD, chronic lymphocytic leukemia, and COVID-19 diagnosed yesterday. She [facility] in a jail and today had increasing shortness of breath so sent back to the emergency department for further evaluation. She complains of chest pain with exertion coughing which is new today. No radi ation of pain. No significant sputum production. Positive chills and generalized weakness and malaise No nausea vomiting diarrhea Last hospitalization was in March, slightly over 1 month ago, for COPD exacerbation secondary to viral syndrome, non COVID. She was started on Paxlovid yesterday. Related Data Home Medications Medication Instructions Recorded Confirmed aspirin 325 mg tablet 325 mg PO DAILY 10/08/21 04/27/22 chlordiazepoxide HCl 10 mg capsule 10 mg PO BEDTIME 10/08/21 04/27/22 citalopram 20 mg tablet 40 mg PO DAILY 10/08/21 04/27/22 hydroxychloroquine 200 mg tablet 200 mg PO BID 10/08/21 04/27/22 insulin lispro protamine-lispro 0 unit subcut TIDAC 10/08/21 04/27/22 100 unit/mL (75-25) subcutaneous pen levothyroxine 175 mcg tablet 175 mcg PO DAILY@0600 10/08/21 04/27/22 multivitamin 1 tab PO DAILY 10/08/21 04/27/22 simvastatin 20 mg tablet 20 mg PO BEDTIME 10/08/21 04/27/22 sitagliptin phosphate 100 mg 100 mg PO DAILY 10/08/21 04/27/22 tablet (Januvia) latanoprost 0.005 % eye drops 1 drp ophthalmic (eye) BEDTIME 11/20/21 04/27/22 albuterol sulfate 0.63 mg/3 mL 0.63 mg inhalation Q4-6H PRN 02/16/22 04/27/22 solution for nebulization Wheezing bisacodyl 10 mg rectal suppository 10 mg [place] DAILY PRN Constipation 02/16/22 04/27/22 brinzolamide 1 %-brimonidine 0.2 % 1 drp ophthalmic-Right BID 02/16/22 04/27/22 eye drops,suspension (Simbrinza) [id number]-[id number] 1 tab PO QID PRN Pain 02/16/22 04/27/22 50 mg-325 mg-40 mg tablet coenzyme Q10 100 mg capsule 50 mg PO DAILY 02/16/22 04/27/22 (CoQ-10) insulin glargine 100 unit/mL (3 20 unit subcut BEDTIME 02/16/22 04/27/22 mL) subcutaneous pen (Lantus Solostar U-100 Insulin) magnesium oxide 400 mg PO DAILY 02/16/22 04/27/22 melatonin 5 mg tablet 5 mg PO BEDTIME PRN Sleep 02/16/22 04/27/22 metoprolol tartrate 50 mg tablet 50 mg PO BID 02/16/22 04/27/22 prednisolone acetate 1 % eye 1 drp ophthalmic-Right QID 02/16/22 04/27/22 drops,suspension riboflavin (vitamin B2) 400 mg 400 mg PO DAILY 02/16/22 04/27/22 tablet sennosides 8.6 mg tablet (senna) 17.2 mg PO DAILY PRN Constipation 02/16/22 04/27/22 timolol maleate 0.5 % eye drops 1 drp ophthalmic-Right BID 02/16/22 04/27/22 carboxymethylcellulose sodium 1 % 1 drp ophthalmic (eye) BID 03/15/22 04/27/22 eye drops (Artificial Tears (carboxymethylcellulose)) acetaminophen 325 mg tablet 650 mg PO Q4H PRN Pain 04/27/22 04/27/22 biotin 5 mg capsule 5 mg PO DAILY 04/27/22 04/27/22 budesonide-formoterol HFA 160 2 puff inhalation BID 04/27/22 04/27/22 mcg-4.5 mcg/actuation aerosol inhaler (Symbicort) diclofenac sodium 1 % topical gel 4 g topical QID 04/27/22 04/27/22 furosemide 40 mg tablet 1 tab PO DAILY@1200 04/27/22 04/27/22 furosemide 40 mg tablet 60 mg PO DAILY 04/27/22 04/27/22 hydroxyzine HCl 25 mg tablet 1 tab PO DAILY 04/27/22 04/27/22 prednisone 20 mg tablet See Taper PO DAILY 04/27/22 04/27/22 umeclidinium 62.5 mcg/actuation 1 inh inhalation DAILY 04/27/22 04/27/22 blister powder for inhalation (Incruse Ellipta) Previous Rx's Medication Instructions Recorded amlodipine 10 mg tablet 10 mg PO DAILY #30 tabs 10/16/21 nystatin 100,000 unit/gram topical 1 appl topical BID 7 days #30 grams 12/23/21 powder ipratropium 0.5 mg-albuterol 3 mg 3 ml inhalation RQ4H WHILE AWAKE 03/17/22 (2.5 mg base)/3 mL nebulization #90 mL soln nirmatrelvir 150 mg-ritonavir 100 See Rx Instructions PO .COMPLEX 04/27/22 mg tablets in a dose pack (EUA) #20 ea (Paxlovid) Allergies Allergy/AdvReac Type Severity Reaction Status Date / Time oxycodone [From Percocet] Allergy Intermediate Rash Verified 04/27/22 11:42 lisinopril Allergy Unknown Unknown Verified 04/27/22 11:42 Review of Systems Constitutional: Comments: General malaise. Cardiovascular: Comments: Chest pain is described Respiratory: Comments: Dyspnea and cough is described. No sputum Gastrointestinal: Comments: No nausea vomiting diarrhea or abdominal pain Neurologic: Comments: General malaise and weakness without focal weakness [facility] Past Medical History Medical History CKD (chronic kidney disease) CLL (chronic lymphocytic leukemia) Congestive heart failure COVID Diabetes mellitus with insulin therapy Essential hypertension HLD (hyperlipidemia) HTN (hypertension) Hypothyroidism Hypoxia Infection with ESBL Klebsiella oxytoca Klebsiella pneumonia Lower extremity edema Lymphadenopathy, mediastinal Migraine Obesity Pleural effusion Pseudotumor cerebri PVD (peripheral vascular disease) Suspected deep tissue injury Surgical History H/O cataract extraction H/O hysterectomy for benign disease Hx of cholecystectomy S/P appendectomy Family History Family History Mother Heart attack, Onset Age: 92 Father Heart attack, Onset Age: 66 Other Diabetes Social History Social History Household Members: Family Household Members Other:: patient came from a rehab facility, been there since dec Housing: House Do you presently have visiting nurse or other home services: No Alcohol intake: never Patient Tobacco Use Status: Former Tobacco user Smoked in Last 30 Days: No Use of substances other than those prescribed or required for medical reasons: No Advance Directives: Yes Advance Directives on File: Yes Advance Directives Date on File: 09/26/20 service: No Current occupational status: disabled Physical Exam Vital Signs: Vital Signs: Last Vital Signs Temp 98 F 04/28/22 14:41 Pulse 66 04/28/22 18:12 Resp 22 H 04/28/22 18:12 BP 139/111 H 04/28/22 18:12 Pulse Ox 92 04/28/22 18:12 O2 Del Method 04/28/22 18:12 Oxygen Flow Rate 4 04/28/22 14:41 BMI result Body Mass Index 46.9 Const: Other: Awake and alert. Dyspnea at rest. Chest: Other: Chest wall nontender Resp: Other: Bilateral expiratory wheezes with diminished air entry bilaterally Cardio: Other: Regular rate and rhythm without murmurs rubs or gallops GI: Other: Soft nontender nondistended. Normoactive bowel sounds Skin: Other: Warm pink and dry without rash Neuro: Other: No obvious focal neuro deficit Extrem: Other: Bilateral pedal edema, equal Medications Administered Discontinued Medications Generic Name Dose Route Start Last Admin Trade Name Freq PRN Reason Stop Dose Admin Albuterol/Ipratropium 3 ml 04/28/22 14:42 04/28/22 15:23 Albuterol/Iprat 2.5/0.5mg 3 Ml Ampul.Neb INHALE 04/28/22 14:43 3 ml ONCE ONE Administration Methylprednisolone Sodium Succinate 125 mg 04/28/22 14:42 04/28/22 15:13 Methylprednisolone Sod Succ 125 Mg/2 Ml Vial IVPUSH 04/28/22 14:43 125 mg ONCE ONE Administration Medical Decision Making Medical Decision Making [facility] Narrative: Patient with dyspnea presumably secondary to active COVID-19 infection which was diagnosed yesterday. Will need to rule out secondary infection such as bacterial pneumonia. Her x-ray yesterday also showed mild CHF. Will check for worsening congestive heart failure. Patient maintaining her oxygen saturation at 92% on 4 L. This is an increase in oxygen requirement. She is dyspnea despite this. Will treat with a DuoNeb and Solu-Medrol. It is understood she was started on Paxil of it, but given wheezing, steroids are indicated. She is not showing evidence of sepsis at this time, 14:51. Await workup. 18:41. X-ray today is similar to yesterday with mild CHF and small pleural effusions. CBC shows white count 16.7 which is similar yesterday. Hemoglobin of 11.6. Chemistry show potassium mildly elevated at 5.2. Creatinine is 1.29. Venous blood gas shows pH of 7.35 with a bicarb of 40. PCO2 is 44. Patient is currently comfortable on BiPAP with settings of 12 and 5. With tried to wean her to 10/5 which he did not tolerate and had increased work of breathing with tidal volumes of approximately 150. She also did not tolerate attempts to switch her to CPAP settings. Will consult the ICU to watch her overnight. She is at high risk for decompensation given her history. 18:51. Case discussed with Dr. Tesfaye from the ICU who agrees with treatment so far and placement in the ICU for observation. In the meantime request dry CT scan as a baseline in case patient's condition changes. Lab Data 04/28/22 18:00 04/28/22 16:49 Labs: Lab Results 04/28/22 04/28/22 04/28/22 Range/Units 16:04 16:49 16:49 WBC (4.8-10.8) X10*3/uL RBC (4.20-5.50) X10*6/uL Hgb (12.0-16.0) g/dl Hct (37.0-47.0) % MCV (80.0-98.0) fL MCH (27.0-33.0) pg MCHC (31.0-35.0) g/dl RDW (11.0-16.0) % Plt Count (160-400) X10*3/uL MPV (9.4-12.3) fL Immature Gran % (Auto) (0.0-0.4) % Neut % (Auto) (45-73) % Lymph % (Auto) (20-40) % Brown % (Auto) (2-11) % Eos % (Auto) (0-4) % Baso % (Auto) (0-2) % Lymph # (Auto) (1.2-4.9) X10*3/uL Brown # (Auto) (0.1-1.2) X10*3/uL Eos # (Auto) (0.0-0.4) X10*3/uL Baso # (Auto) (0.0-0.2) X10*3/uL Abs Immat Gran (auto) (0.00-0.03) X10*3/uL Absolute Neuts (auto) (2.0-8.3) x10*3/uL Absolute Nucleated RBC (0.0-0.012) X10*3/uL Nucleated RBC % (auto) (0.0-0.2) /100WBC PT 11.2 (10.0-13.1) SEC INR 1.0 (0.9-1.1) D-Dimer High Sensitivty 459 NG/ML VBG pH (7.32-7.43) VBG pCO2 mmHg VBG pO2 mmHg VBG HCO3 (22-26) mmol/L VBG O2 Saturation % VBG Base Excess mmol/L Sodium 138 (135-145) mmol/L Potassium 5.2 H (3.3-5.1) mmol/L Chloride 97 (96-108) mmol/L Carbon Dioxide 32 H (22-29) mmol/L Anion Gap 14 (12-20) BUN 40 H (9-16) mg/dL Creatinine 1.29 (0.5-1.4) mg/dL Estim Creat Clear Calc 50.2 Estimated GFR 41 Random Glucose 358 H* (60-115) mg/dL Lactic Acid (0.5-2.0) mmol/L Calcium 8.6 (8.4-10.2) mg/dL Total Bilirubin 0.5 (0.0-1.0) mg/dL AST 12 (5-31) U/L ALT 7 (0-31) U/L Alkaline Phosphatase 72 (39-117) U/L Troponin I High Sens (<3.5-17.0) ng/L B-Natriuretic Peptide (<100) pg/mL Total Protein 7.1 (6.5-8.0) g/dL Albumin 3.3 L (3.5-5.0) g/dL COVID-19 (DENY) Positive A (Negative) COVID-19 Clin Com See Note 04/28/22 04/28/22 04/28/22 Range/Units 16:49 16:49 18:00 WBC 16.7 H (4.8-10.8) X10*3/uL RBC 4.38 (4.20-5.50) X10*6/uL Hgb 11.6 L (12.0-16.0) g/dl Hct 37.5 (37.0-47.0) % MCV 85.6 (80.0-98.0) fL MCH 26.5 L (27.0-33.0) pg MCHC 30.9 L (31.0-35.0) g/dl RDW 13.9 (11.0-16.0) % Plt Count 272 (160-400) X10*3/uL MPV 11.4 (9.4-12.3) fL Immature Gran % (Auto) 1.0 H (0.0-0.4) % Neut % (Auto) 91.8 H (45-73) % Lymph % (Auto) 5.0 L (20-40) % Brown % (Auto) 1.4 L (2-11) % Eos % (Auto) 0.4 (0-4) % Baso % (Auto) 0.4 (0-2) % Lymph # (Auto) 0.8 L (1.2-4.9) X10*3/uL Brown # (Auto) 0.2 (0.1-1.2) X10*3/uL Eos # (Auto) 0.1 (0.0-0.4) X10*3/uL Baso # (Auto) 0.1 (0.0-0.2) X10*3/uL Abs Immat Gran (auto) 0.16 H (0.00-0.03) X10*3/uL Absolute Neuts (auto) 15.3 H (2.0-8.3) x10*3/uL Absolute Nucleated RBC 0.000 (0.0-0.012) X10*3/uL Nucleated RBC % (auto) 0.0 (0.0-0.2) /100WBC PT (10.0-13.1) SEC INR (0.9-1.1) D-Dimer High Sensitivty NG/ML VBG pH (7.32-7.43) VBG pCO2 mmHg VBG pO2 mmHg VBG HCO3 (22-26) mmol/L VBG O2 Saturation % VBG Base Excess mmol/L Sodium (135-145) mmol/L Potassium (3.3-5.1) mmol/L Chloride (96-108) mmol/L Carbon Dioxide (22-29) mmol/L Anion Gap (12-20) BUN (9-16) mg/dL Creatinine (0.5-1.4) mg/dL Estim Creat Clear Calc Estimated GFR Random Glucose (60-115) mg/dL Lactic Acid (0.5-2.0) mmol/L Calcium (8.4-10.2) mg/dL Total Bilirubin (0.0-1.0) mg/dL AST (5-31) U/L ALT (0-31) U/L Alkaline Phosphatase (39-117) U/L Troponin I High Sens 9.2 (<3.5-17.0) ng/L B-Natriuretic Peptide 340 H (<100) pg/mL Total Protein (6.5-8.0) g/dL Albumin (3.5-5.0) g/dL COVID-19 (DENY) (Negative) COVID-19 Clin Com 04/28/22 04/28/22 Range/Units 18:00 18:07 WBC (4.8-10.8) X10*3/uL RBC (4.20-5.50) X10*6/uL Hgb (12.0-16.0) g/dl Hct (37.0-47.0) % MCV (80.0-98.0) fL MCH (27.0-33.0) pg MCHC (31.0-35.0) g/dl RDW (11.0-16.0) % Plt Count (160-400) X10*3/uL MPV (9.4-12.3) fL Immature Gran % (Auto) (0.0-0.4) % Neut % (Auto) (45-73) % Lymph % (Auto) (20-40) % Brown % (Auto) (2-11) % Eos % (Auto) (0-4) % Baso % (Auto) (0-2) % Lymph # (Auto) (1.2-4.9) X10*3/uL Brown # (Auto) (0.1-1.2) X10*3/uL Eos # (Auto) (0.0-0.4) X10*3/uL Baso # (Auto) (0.0-0.2) X10*3/uL Abs Immat Gran (auto) (0.00-0.03) X10*3/uL Absolute Neuts (auto) (2.0-8.3) x10*3/uL Absolute Nucleated RBC (0.0-0.012) X10*3/uL Nucleated RBC % (auto) (0.0-0.2) /100WBC PT (10.0-13.1) SEC INR (0.9-1.1) D-Dimer High Sensitivty NG/ML VBG pH 7.35 (7.32-7.43) VBG pCO2 71 mmHg VBG pO2 44 mmHg VBG HCO3 40 H (22-26) mmol/L VBG O2 Saturation 68.0 % VBG Base Excess 11.3 mmol/L Sodium (135-145) mmol/L Potassium (3.3-5.1) mmol/L Chloride (96-108) mmol/L Carbon Dioxide (22-29) mmol/L Anion Gap (12-20) BUN (9-16) mg/dL Creatinine (0.5-1.4) mg/dL Estim Creat Clear Calc Estimated GFR Random Glucose (60-115) mg/dL Lactic Acid 1.1 (0.5-2.0) mmol/L Calcium (8.4-10.2) mg/dL Total Bilirubin (0.0-1.0) mg/dL AST (5-31) U/L ALT (0-31) U/L Alkaline Phosphatase (39-117) U/L Troponin I High Sens (<3.5-17.0) ng/L B-Natriuretic Peptide (<100) pg/mL Total Protein (6.5-8.0) g/dL Albumin (3.5-5.0) g/dL COVID-19 (DENY) (Negative) COVID-19 Clin Com Discharge Plan Discharge Patient Disposition: Admitted As Inpatient
[2022-04-28] MEDS: methylPREDNISolone Sod Succ 125 MG/2 ML VIAL IVPUSH (15:13)
[2022-04-28] MEDS: Albuterol/Iprat 2.5/0.5MG 3 ML AMPUL.NEB INHALE (15:23)
[2022-04-28 16:26] LABS: COVID-19 Test Positive (Negative); IDNOW Serial# 16C4AD1C
[2022-04-28 17:00] LABS: Prothrombin Time 11.2 SEC (10.0-13.1)
[2022-04-28 17:02] LABS: D Dimer High Sensitivity 459 NG/ML
[2022-04-28 17:21] LABS: B Type Natriuretic Peptide 340 pg/mL (<100)
[2022-04-28 17:22] LABS: Troponin-I High Sensitivity 9.2 ng/L (<3.5-17.0)
[2022-04-28 17:39] LABS: Alanine Aminotransferase 7 U/L (0-31); Albumin Level 3.3 g/dL (3.5-5.0); Alkaline Phosphatase 72 U/L (39-117); Anion Gap 14 (12-20); Aspartate Amino Transferase 12 U/L (5-31); Bilirubin Total 0.5 mg/dL (0.0-1.0); Blood Urea Nitrogen 40 mg/dL (9-16); Calcium 8.6 mg/dL (8.4-10.2); Carbon Dioxide 32 mmol/L (22-29); Chloride 97 mmol/L (96-108); Creatinine Clr Calc Pharmacy 50.2; Estimated Glomerular Filt Rate 41; Glucose Random 358 mg/dL (60-115); Potassium 5.2 mmol/L (3.3-5.1); Sodium 138 mmol/L (135-145); Total Protein 7.1 g/dL (6.5-8.0)
[2022-04-28 18:12] LABS: Venous Blood Gas Refer to POC result
[2022-04-28 18:13] LABS: VBG Base Excess 11.3 mmol/L; VBG HCO3 40 mmol/L (22-26); VBG pCO2 71 mmHg; VBG pH 7.35 (7.32-7.43); VBG pO2 44 mmHg
[2022-04-28 18:25] LABS: Lactic Acid 1.1 mmol/L (0.5-2.0)
[2022-04-28 18:33] LABS: Basophils Absolute Auto 0.1 X10*3/uL (0.0-0.2); Basophils Percent Auto 0.4 % (0-2); Eosinophils Absolute Auto 0.1 X10*3/uL (0.0-0.4); Eosinophils Percent Auto 0.4 % (0-4); Hematocrit 37.5 % (37.0-47.0); Hemoglobin 11.6 g/dl (12.0-16.0); Imm Gran Abs Auto 0.16 X10*3/uL (0.00-0.03); Lymphocytes Absolute Auto 0.8 X10*3/uL (1.2-4.9); MANUAL DIFF FLAG SCAN; Mean Corpuscular HGB Conc 30.9 g/dl (31.0-35.0); Mean Corpuscular Hemoglobin 26.5 pg (27.0-33.0); Mean Corpuscular Volume 85.6 fL (80.0-98.0); Mean Platelet Volume 11.4 fL (9.4-12.3); Monocytes Absolute Auto 0.2 X10*3/uL (0.1-1.2); Monocytes Percent Auto 1.4 % (2-11); Neutrophils Absolute Auto 15.3 x10*3/uL (2.0-8.3); Neutrophils Percent Auto 91.8 % (45-73); Platelet Count 272 X10*3/uL (160-400); Red Blood Count 4.38 X10*6/uL (4.20-5.50); Red Cell Distribution Width 13.9 % (11.0-16.0); SCAN SMEAR FLAG 1; White Blood Count 16.7 X10*3/uL (4.8-10.8)
[2022-04-28 18:53] LABS: SLIDE REVIEW VERIFIED
[2022-04-28] MEDS: Furosemide 40 MG/4 ML VIAL IVPUSH (18:59)
--- NOTE | 2022-04-28 19:23 | PHA.MEDREC ---
Pharmacy Consult ? Medication Reconciliation Pharmacy has completed the medication reconciliation.
--- NOTE | 2022-04-28 20:38 | P.HPCC_ITS ---
History of Present Illness Date of Service: 04/28/22 Attending physician on admission: Lisa Tesfaye Chief Complaint: Shortness of breath Chief complaint:? Dyspnea The patient is a 72-year-old female with past medical history of? O2 dependent COPD,CKD, CLL, CHF, DM 2 with insulin dependence, HTN, HLD, hypothyroidism, pleural effusion, pseudotumor cerebri, PVD, past infection with ESBL Klebsiella?who [facility]?for evaluation of increasing shortness of breath.? She was seen here at [facility] in the emergency room yesterday and diagnosed with COVID-19 and started on Paxlovid.? The patient was last hospitalized here at [facility] on March 15-2021 for acute on chronic hypoxic respiratory failure secondary to acute exacerbation of COPD i n the setting of influenza.?? On arrival to the emergency room the patient was dyspneic but maintaining her oxygen saturation at 92% on 4L (baseline 2L).? Blood pressure was 131/55, heart rate 68, respiratory rate 16, temp 98.0?. Laboratory data significant for WBC 16.7, hematocrit 37.5,?potassium 5.2, CO2 32, BUN 40,?creatinine 1.29, lactic 1.1.? VBG: pH 7.35, pCO2 71, HC03 40, base excess 11.3. Imaging: CXR: Bilateral pleural effusions with interstitial edema.? Similar in appearance to yesterday. Chest CT: Bilateral moderate pleural effusions greater on the right. Bilateral dependent infiltrates in both lower lobe and left upper lobe. There is a right middle lobe collapse with a right hilar soft tissue density mass likely obstructing right middle lobe bronchus. Abnormal mediastinal and bilateral axillary lymphadenopathy. Question inflammatory or infectious etiology.? ED course:? The patient was placed on BiPAP with settings of 12 in 5.? She was given Solu-Medrol 125 mg, Lasix 40 mg, and a DuoNeb.?Attempts to wean her to 10/5 were unsuccessful due to increased work of breathing and low tidal volumes of approximately 150. Admit to ICU for continued BiPAP and observation. Review of Systems Review of Systems: Yes all other systems are reviewed and are negative Constitutional: Constitutional: Reports no additional constitutional complaints Respiratory: Respiratory: Reports as per HPI [facility] Past Medical History Medical History (Updated 04/29/22 @ 12:42 by Lisa Tesfaye MD) Chronic lymphocytic leukemia (CLL), B-cell CKD (chronic kidney disease) CLL (chronic lymphocytic leukemia) Congestive heart failure COVID Diabetes mellitus with insulin therapy Essential hypertension HLD (hyperlipidemia) HTN (hypertension) Hypothyroidism Hypoxia Infection with ESBL Klebsiella oxytoca Klebsiella pneumonia Lower extremity edema Lymphadenopathy, mediastinal Migraine Obesity Pleural effusion Pseudotumor cerebri PVD (peripheral vascular disease) Suspected deep tissue injury Family History Family History Mother Heart attack, Onset Age: 92 Father Heart attack, Onset Age: 66 Other Diabetes Surgical History Surgical History H/O cataract extraction H/O hysterectomy for benign disease Hx of cholecystectomy S/P appendectomy Social History Social History Household Members: Family Household Members Other:: patient came from a rehab facility, been there since dec Housing: House Do you presently have visiting nurse or other home services: No Alcohol intake: never Patient Tobacco Use Status: Former Tobacco user Smoked in Last 30 Days: No Use of substances other than those prescribed or required for medical reasons: No Currently Displaying Signs/Symptoms of Drug Intoxication Withdrawal: No Advance Directives: Yes Advance Directives on File: Yes Advance Directives Date on File: 09/26/20 service: No Current occupational status: disabled Meds Allergies Allergy/AdvReac Type Severity Reaction Status Date / Time oxycodone [From Percocet] Allergy Intermediate Rash Verified 04/27/22 11:42 lisinopril Allergy Unknown Unknown Verified 04/27/22 11:42 Home Medications Medication Instructions Recorded Confirmed Last Taken Type aspirin 325 mg tablet 325 mg PO DAILY 10/08/21 04/28/22 Unknown History chlordiazepoxide HCl 10 mg capsule 10 mg PO BEDTIME 10/08/21 04/28/22 Unknown History citalopram 20 mg tablet 40 mg PO DAILY 10/08/21 04/28/22 Unknown History hydroxychloroquine 200 mg tablet 200 mg PO BID 10/08/21 04/28/22 Unknown History insulin lispro protamine-lispro 0 unit subcut TIDAC 10/08/21 04/28/22 Unknown History 100 unit/mL (75-25) subcutaneous pen levothyroxine 175 mcg tablet 175 mcg PO DAILY@0600 10/08/21 04/28/22 Unknown History multivitamin 1 tab PO DAILY 10/08/21 04/28/22 Unknown History simvastatin 20 mg tablet 20 mg PO BEDTIME 10/08/21 04/28/22 Unknown History sitagliptin phosphate 100 mg 100 mg PO DAILY 10/08/21 04/28/22 Unknown History tablet (Januvia) latanoprost 0.005 % eye drops 1 drp ophthalmic (eye) BEDTIME 11/20/21 04/28/22 Unknown History albuterol sulfate 0.63 mg/3 mL 0.63 mg inhalation Q4-6H PRN 02/16/22 04/28/22 Unknown History solution for nebulization Wheezing bisacodyl 10 mg rectal suppository 10 mg FL DAILY PRN Constipation 02/16/22 04/28/22 Unknown History brinzolamide 1 %-brimonidine 0.2 % 1 drp ophthalmic-Right BID 02/16/22 04/28/22 Unknown History eye drops,suspension (Simbrinza) dpmwgplvam-owgliewzxpjem-mfgugvhx 1 tab PO QID PRN Pain 02/16/22 04/28/22 Unkn own History 50 mg-325 mg-40 mg tablet coenzyme Q10 100 mg capsule 50 mg PO DAILY 02/16/22 04/28/22 Unknown History (CoQ-10) insulin glargine 100 unit/mL (3 20 unit subcut BEDTIME 02/16/22 04/28/22 Unknown History mL) subcutaneous pen (Lantus Solostar U-100 Insulin) magnesium oxide 400 mg PO DAILY 02/16/22 04/28/22 Unknown History melatonin 5 mg tablet 5 mg PO BEDTIME PRN Sleep 02/16/22 04/28/22 Unknown History metoprolol tartrate 50 mg tablet 50 mg PO BID 02/16/22 04/28/22 Unknown History prednisolone acetate 1 % eye 1 drp ophthalmic-Right QID 02/16/22 04/28/22 Unknown History drops,suspension riboflavin (vitamin B2) 400 mg 400 mg PO DAILY 02/16/22 04/28/22 Unknown History tablet sennosides 8.6 mg tablet (senna) 17.2 mg PO DAILY PRN Constipation 02/16/22 04/28/22 Unknown History timolol maleate 0.5 % eye drops 1 drp ophthalmic-Right BID 02/16/22 04/28/22 Unknown History carboxymethylcellulose sodium 1 % 1 drp ophthalmic (eye) BID 03/15/22 04/28/22 Unknown History eye drops (Artificial Tears (carboxymethylcellulose)) acetaminophen 325 mg tablet 650 mg PO Q4H PRN Pain 04/27/22 04/28/22 Unknown History biotin 5 mg capsule 5 mg PO DAILY 04/27/22 04/28/22 Unknown History budesonide-formoterol HFA 160 2 puff inhalation BID 04/27/22 04/28/22 Unknown History mcg-4.5 mcg/actuation aerosol inhaler (Symbicort) diclofenac sodium 1 % topical gel 4 g topical QID 04/27/22 04/28/22 Unknown History furosemide 40 mg tablet 1 tab PO DAILY@1200 04/27/22 04/28/22 Unknown History furosemide 40 mg tablet 60 mg PO DAILY 04/27/22 04/28/22 Unknown History hydroxyzine HCl 25 mg tablet 1 tab PO DAILY 04/27/22 04/28/22 Unknown History prednisone 20 mg tablet See Taper PO DAILY 04/27/22 04/28/22 Unknown History umeclidinium 62.5 mcg/actuation 1 inh inhalation DAILY 04/27/22 04/28/22 Unknown History blister powder for inhalation (Incruse Ellipta) Physical Exam Vital Signs: Vital Signs: Last Vital Signs Temp 98 F 04/28/22 14:41 Pulse 68 04/28/22 18:59 Resp 23 H 04/28/22 19:13 BP 146/50 H 04/28/22 18:59 Pulse Ox 93 04/28/22 18:59 O2 Del Method 04/28/22 18:59 Oxygen Flow Rate 4 04/28/22 14:41 BMI result Body Mass Index 46.9 Const: General: cooperative, comfortable, no acute distress (on BiPap), alert and awake Nutritional Appearance: obese Orientation/consciousness: patient oriented x3 HEENT: Head: Yes normocephalic and Yes atraumatic General nose exam: Normal external nose present (Nares patent, septum midline, sinuses nontender bilater ally.) Mouth: Normal oral and palatal mucosa present (No thrush, tongue in midline, mucosa moist.) Throat: Yes other (No erythema, no exudate.) Neck: Neck: Yes supple (no thyromegaly, trachea midline.) Carotids: normal carotid upstroke Resp: Auscultation: rhonchi (expiratory) upper bilaterally Cardio: Jugular venous distension: no JVD Rate: regular rate Rhythm: regular rhythm Heart sounds: no gallops, no murmurs and no rubs Peripheral pulses: Peripheral pulses 2+ throughout GI: Palpation (GI): Soft to palpation (nondistended.) and nontender Skin: Other: PVD: BLE with hyperpigmentation Neuro: General: patient oriented x3 Extrem: General: Yes full ROM, Yes capillary refill normal and Yes no clubbing, cyanosis or edema Psych: Affect: normal affect Attitude: cooperative Results Labs 04/28/22 18:00 04/28/22 16:49 Labs: Laboratory Results - last 24 hr 04/28/22 04/28/22 04/28/22 16:04 16:49 16:49 MCV MCH MCHC RDW Plt Count MPV Immature Gran % (Auto) Neut % (Auto) Lymph % (Auto) [place] % (Auto) Eos % (Auto) Baso % (Auto) Lymph # (Auto) [place] # (Auto) Eos # (Auto) Baso # (Auto) Abs Immat Gran (auto) Absolute Neuts (auto) Absolute Nucleated RBC Nucleated RBC % (auto) Smear Tech's Comments PT 11.2 INR 1.0 D-Dimer High Sensitivty 459 VBG pH VBG pCO2 VBG pO2 VBG HCO3 VBG O2 Saturation VBG Base Excess Anion Gap 14 Estim Creat Clear Calc 50.2 Estimated GFR 41 Random Glucose 358 H* Lactic Acid Calcium 8.6 Total Bilirubin 0.5 AST 12 ALT 7 Alkaline Phosphatase 72 Troponin I High Sens B-Natriuretic Peptide Total Protein 7.1 Albumin 3.3 L COVID-19 (DENY) Positive A COVID-19 Clin Com See Note 04/28/22 04/28/22 04/28/22 16:49 16:49 18:00 MCV 85.6 MCH 26.5 L MCHC 30.9 L RDW 13.9 Plt Count 272 MPV 11.4 Immature Gran % (Auto) 1.0 H Neut % (Auto) 91.8 H Lymph % (Auto) 5.0 L [place] % (Auto) 1.4 L Eos % (Auto) 0.4 Baso % (Auto) 0.4 Lymph # (Auto) 0.8 L [place] # (Auto) 0.2 Eos # (Auto) 0.1 Baso # (Auto) 0.1 Abs Immat Gran (auto) 0.16 H Absolute Neuts (auto) 15.3 H Absolute Nucleated RBC 0.000 Nucleated RBC % (auto) 0.0 Smear Tech's Comments VERIFIED PT INR D-Dimer High Sensitivty VBG pH VBG pCO2 VBG pO2 VBG HCO3 VBG O2 Saturation VBG Base Excess Anion Gap Estim Creat Clear Calc Estimated GFR Random Glucose Lactic Acid Calcium Total Bilirubin AST ALT Alkaline Phosphatase Troponin I High Sens 9.2 B-Natriuretic Peptide 340 H Total Protein Albumin COVID-19 (DENY) COVID-19 [email or web address] 04/28/22 04/28/22 18:00 18:07 MCV MCH MCHC RDW Plt Count MPV Immature Gran % (Auto) Neut % (Auto) Lymph % (Auto) [place] % (Auto) Eos % (Auto) Baso % (Auto) Lymph # (Auto) [place] # (Auto) Eos # (Auto) Baso # (Auto) Abs Immat Gran (auto) Absolute Neuts (auto) Absolute Nucleated RBC Nucleated RBC % (auto) Smear Tech's Comments PT INR D-Dimer High Sensitivty VBG pH 7.35 VBG pCO2 71 VBG pO2 44 VBG HCO3 40 H VBG O2 Saturation 68.0 VBG Base Excess 11.3 Anion Gap Estim Creat Clear Calc Estimated GFR Random Glucose Lactic Acid 1.1 Calcium Total Bilirubin AST ALT Alkaline Phosphatase Troponin I High Sens B-Natriuretic Peptide Total Protein Albumin COVID-19 (DENY) COVID-19 Clin Com Imaging Radiologist's Impressions: Impressions Chest X-Ray 04/28/22 15:54 IMPRESSION: Similar appearance to prior. Bilateral pleural effusions with interstitial edema. Comment: Chest CT IMPRESSION: Bilateral moderate pleural effusions greater on the right. ? Bilateral dependent infiltrates in both lower lobe and left upper lobe. There is a right middle lobe collapse with a right hilar soft tissue density mass likely obstructing right middle lobe bronchus. ? Abnormal mediastinal and bilateral axillary lymphadenopathy. Question inflammatory or infectious etiology.? Assessment and Plan (1) COVID-19: Status: Acute (2) Congestive heart failure: Status: Acute (3) CKD (chronic kidney disease): Status: Acute (4) HTN (hypertension): Status: Acute (5) Hypoxia: Status: Acute (6) Obesity: Status: Acute (7) Pleural effusion: Status: Acute (8) Dyspnea: Status: Acute Plan Assessment: 72-year-old female with O2 dependent COPD, CKD, CLL, CHF, DM 2 with insulin dependence, HTN, HLD, hypothyroidism, pleural effusion, PVD admitted to ICU? with dyspnea secondary to an active COVID-19 infection requiring BiPAP support and high risk for respiratory decompensation per history. Plan Neuro:? No acute issues. Cardiac: Bilateral pleural effusions with interstitial edema noted in the x-ray as well CTA. She does have history of Congestive heart failure, hypertension. Received 40mg Lasix in the ED. No peripheral or central edema noted. Reconcile home medications? Pulmonary: Covid + with dyspnea and wheezing.? Patient appears to be comfortable and in no acute distress on BiPAP.? Regular respiratory rate.? No accessory muscle use. Continue BiPAP overnight. Continue Paxlovid. DuoNebs.? Renal:? No acute issues. BUN/creatinine at baseline. Monitor renal indices. Endo: Insulin-dependent DM. SS insulin per protocol.? GI:? No acute issues. ID: Leukocytosis possibly from COVID-19 infection.? No evidence of severe sepsis/shock. Lactic 1.1. Stable BP, HR. Chest CT results at 2103 suspicious for bacterial pneumonia. Will give empiric antibiotics. Heme/Onc: History CLL. No acute issues. Psych:? No acute issues. Miscellaneous:? No acute issues. Prophylaxis:? Heparin, Famotidine Diet: ? NPO Time Spent With Patient Time: Total time managing care of this patient today ____ minutes.
[2022-04-29] VITALS (18 sets, daily range): BP systolic 136–173; BP diastolic 51–76; PULSE 57–77; RESP 12–26; TEMP 36.2–36.7; O2SAT 87–97; BMI 47.9; BMI 48.4
--- NOTE | 2022-04-29 00:09 | PC.NURSE ---
report received from BALJEET Garcia pt is alert and oriented, resting in bed, no signs of acute distress notice. pt is on continuos cardiac monitoring. pt on BiPaP, tolerating it well report given BALJEET Sierra at ICU
[2022-04-29] MEDS: Piperacillin Sodium/Tazobactam 3.375 GM in 0.9 % Sodium Chloride 50 ML IV (01:42)
[2022-04-29] MEDS: Insulin Lispro 100 UNIT/ML 3 ML VIAL SUBCUT ×5 (01:48→20:37)
[2022-04-29 02:42] LABS: Glucose, Whole Blood 315 mg/dL (60-115)
[2022-04-29 04:51] LABS: VBG Base Excess 11.7 mmol/L; VBG HCO3 37 mmol/L (22-26); VBG pCO2 49 mmHg; VBG pH 7.48 (7.32-7.43); VBG pO2 36 mmHg
[2022-04-29 04:52] LABS: Venous Blood Gas Refer to POC result
[2022-04-29 04:56] LABS: MANUAL DIFF FLAG NO
[2022-04-29 05:03] LABS: Appearance Urine Clear; Color Urine Yellow; Glucose Urine UA >=1000 mg/dL (Negative); Leukocyte Esterase Urine Negative (Negative); Nitrite Urine Negative (Negative); UMIC TRIGGER UACC YES; Urine Blood Negative (Negative); Urine Ketones Negative (Negative); Urine Protein Negative (Neg-Trace)
[2022-04-29 05:08] LABS: Basophils Absolute Auto 0.1 X10*3/uL (0.0-0.2); Basophils Percent Auto 0.2 % (0-2); Hematocrit 37.3 % (37.0-47.0); Hemoglobin 11.7 g/dl (12.0-16.0); Imm Gran Abs Auto 0.17 X10*3/uL (0.00-0.03); Imm Gran Pct Auto 0.8 % (0.0-0.4); Lymphocytes Absolute Auto 1.2 X10*3/uL (1.2-4.9); Lymphocytes Percent Auto 5.5 % (20-40); Mean Corpuscular HGB Conc 31.4 g/dl (31.0-35.0); Mean Corpuscular Volume 82.9 fL (80.0-98.0); Monocytes Absolute Auto 1.1 X10*3/uL (0.1-1.2); Monocytes Percent Auto 4.8 % (2-11); Neutrophils Absolute Auto 19.5 x10*3/uL (2.0-8.3); Neutrophils Percent Auto 88.7 % (45-73); Platelet Count 273 X10*3/uL (160-400)
[2022-04-29 05:08] LABS: Bacteria Urine None Seen (None Seen); Hyaline Casts Urine 0-2 /LPF (0-2); RBC Urine 0-2 /HPF (0-2); Squamous Epithelial Cell Urine 0-2 /HPF (0-2); WBC Urine 0-5 /HPF (0-5)
[2022-04-29 05:22] LABS: Albumin Level 3.3 g/dL (3.5-5.0); Anion Gap 14 (12-20); Blood Urea Nitrogen 39 mg/dL (9-16); Calcium 8.4 mg/dL (8.4-10.2); Carbon Dioxide 34 mmol/L (22-29); Chloride 96 mmol/L (96-108); Estimated Glomerular Filt Rate 42; Glucose Random 289 mg/dL (60-115); Phosphorus 3.2 mg/dL (2.7-4.5); Potassium 3.9 mmol/L (3.3-5.1); Sodium 140 mmol/L (135-145)
[2022-04-29] MEDS: Levothyroxine Sodium 175 MCG TABLET PO (05:47)
[2022-04-29] MEDS: Heparin Sodium,Porcine 5,000 UNIT/ML VIAL 5000 UNIT SUBCUT ×3 (05:47→20:37)
--- NOTE | 2022-04-29 06:18 | PC.NURSE ---
ADMIT TO [id number] FROM ER DEPT 00:20....AWAKE..ALERT..ORIENTED X3...PALMA TO COMMAND....REMAINS ON BIPAP 12/5 AND FIO2 25%...RR 24-26...NO DISTRESS..DENIES SOB...SAO2 91-93&..LUNGS DIMINISHED....DENIED URGE TO VOID ON ARRIVAL..#16FR [facility] PER ICU ACCOUNT DEVELOPMENT EXECUTIVE AND 600ml YELLOW URINE OBTAINED...ABRASION VS WOUND TO RIGHT BUTTOCK---HEELS REDDENED...FOAM DRESSINGS PLACED...NO CAMERA AVAILABLE FOR DOCUMENTATION..LOWER LEGS VENOUS STASIS BROWNISH DISCOLORATION...NSR..NO ECTOPY...RESTFUL OVERNIGHT...VANCOMYCIN AND ZOSYN INFUSED W/O INCIDENT PER ACCOUNT DEVELOPMENT EXECUTIVE
[2022-04-29 06:32] LABS: Glucose, Whole Blood 256 mg/dL (60-115)
--- NOTE | 2022-04-29 07:17 | PHA.PROG ---
Admission Date/Time: April 28, 2022 21:36 Indication: Respiratory Infection Weight in k.8 kg Adjusted body weight in K.56 [place] body weight in K.237 Obesity Dosing Indication % IBW:OBESE Serum Creatinine - Last 168 Hours 04/28/22 04/29/22 16:49 04:47 Creatinine 1.29 1.26 Estimated CrCl and GFR - Last 168 Hours 04/28/22 04/29/22 16:49 04:47 Estim Creat Clear Calc 50.2 52.0 Estimated GFR 41 42 Vancomycin Loading Dose: 2000 mg Current Vancomycin Dosing Regimen: 1000 mg Q24H Vancomycin Monitoring using AUC goal of 400 - 600 range with trough as surrogate marker: 501 mg/L/hr Date and Time for next Vancomycin Level to be drawn: 05/01 @0500 Pharmacist Comments on Vancomycin Plan: Used obese model. Q24H dosing due to patients age. Retimed dosing so that pharmacy can follow along. Vancomycin dosing will take advantage of [employer] as a clinical decision support tool that uses Bayesian modeling to calculate individual patient's pharmacokinetic parameters and forecast the patient's drug concentration time course with the target goal AUC 24 range of 400 - 600 mg/L/hr.
[2022-04-29 07:55] LABS: Creatinine Clr Calc Pharmacy 61.9; Estimated Glomerular Filt Rate 51
[2022-04-29] MEDS: amLODIPine Besylate 10 MG TABLET PO (10:28)
[2022-04-29] MEDS: Hydroxychloroquine Sulfate 200 MG TABLET PO (10:28)
[2022-04-29] MEDS: Metoprolol Tartrate 50 MG TABLET PO ×2 (10:28→20:38)
[2022-04-29] MEDS: Multivitamin TABLET 1 TAB PO (10:29)
[2022-04-29] MEDS: Magnesium Oxide 400 MG TABLET PO (10:29)
[2022-04-29] MEDS: Furosemide 20 MG TABLET 60 MG PO (10:29)
[2022-04-29] MEDS: Nystatin Powder 15 GM BOTTLE 1 APPL TOPICAL ×2 (10:29→20:38)
[2022-04-29] MEDS: Aspirin 325 MG TABLET PO (10:29)
[2022-04-29] MEDS: prednisoLONE Acetate 1 % Oph Susp 5 ML DRPBTL 1 DROP EYE-RIGHT ×4 (10:30→20:39)
[2022-04-29] MEDS: Fluticasone/Vilanterol 200/25 BLST.W.DEV 1 PUFF INHALE (10:48)
[2022-04-29 11:53] LABS: Glucose, Whole Blood 214 mg/dL (60-115)
--- NOTE | 2022-04-29 12:12 | PM.CCPN ---
Subjective Subjective Date of Service: 04/29/22 Interval History: She is a 72-year-old morbidly obese female in BMI of 48 type 2 diabetic and hypertensive and hyperlipidemic who has an underlying diagnosis of CLL/a B-cell lymphoma and I do not see that she has received any therapy for this but she has had repeated chest infections once requiring intubation spanning the last 6 months once a was RSV once a was influenza a and currently it is COVID even though the CT scan does not have any significant infiltrates at only demonstrates a right middle lobe atelectasis also no effusion and my bedside echo showed normal LV and RV function from a systolic standpoint no primary valve or pericardial disease and she had a normal BNP so I do not believe that there was a fluid overload issue over here it seems to have been entirely COVID and she came in because of increasing shortness of breath and she had taken either just 1 or maybe 2 doses of Paxlovid but because of increasing dyspnea and hypoxia she came in and climb the noninvasive support ladder and wound up being dependent on BiPAP and spent the certainly greater than 12 hours on BiPAP continuously made a dramatic turnaround and is currently just on 2 L of nasal cannula with no respiratory distress no accessory muscle no diaphragmatic effort seems to be very comfortable and again no significant infiltrates on CT scan So she is clearly immunosuppressed but II failed to see any evidence of there being a secondary bacterial infection so I elected not to continue with antibiotics and at this point I restored her diabetic diet and insulin coverage Critical Care Time (minutes): 60 Physical Exam Vital Signs: Vital Signs: Last Vital Signs Temp 97.9 F 04/29/22 11:00 Pulse 57 04/29/22 11:00 Resp 19 04/29/22 11:00 BP 163/67 H 04/29/22 11:00 Pulse Ox 93 04/29/22 11:00 O2 Del Method 04/29/22 11:00 O2 Flow Rate 2 04/29/22 11:00 FiO2 25 04/29/22 10:00 Oxygen Flow Rate 4 04/28/22 14:41 BMI result Body Mass Index 48.4 No distress and she is awake and alert nonfocal Bedside echo demonstrating normal LV and RV systolic function Chest without adventitious sounds and no accessory muscle effort Abdomen soft no again a megaly No significant edema Objective Data Labs 04/29/22 04:47 04/29/22 07:28 Labs: Laboratory Results - last 24 hr 04/28/22 04/28/22 04/28/22 04:10 16:04 16:49 WBC RBC Hgb Hct MCV MCH MCHC RDW Plt Count MPV Immature Gran % (Auto) Neut % (Auto) Lymph % (Auto) [place] % (Auto) Eos % (Auto) Baso % (Auto) Lymph # (Auto) [place] # (Auto) Eos # (Auto) Baso # (Auto) Abs Immat Gran (auto) Absolute Neuts (auto) Absolute Nucleated RBC Nucleated RBC % (auto) Smear Tech's Comments PT INR D-Dimer High Sensitivty VBG pH VBG pCO2 VBG pO2 VBG HCO3 VBG O2 Saturation VBG Base Excess Sodium 138 Potassium 5.2 H Chloride 97 Carbon Dioxide 32 H Anion Gap 14 BUN 40 H Creatinine 1.29 Estim Creat Clear Calc 50.2 Estimated GFR 41 POC Glucose Random Glucose 358 H* Lactic Acid Calcium 8.6 Phosphorus Magnesium Total Bilirubin 0.5 AST 12 ALT 7 Alkaline Phosphatase 72 Troponin I High Sens B-Natriuretic Peptide Total Protein 7.1 Albumin 3.3 L Urine Color Yellow Urine Appearance Clear Urine pH 6.0 Ur Specific [place] 1.010 Urine Protein Negative Urine Glucose (UA) >=1000 H Urine Ketones Negative Urine Blood Negative Urine Nitrite Negative Ur Leukocyte Esterase Negative Urine RBC 0-2 Urine WBC 0-5 Ur Squamous Epith Cells 0-2 Urine Bacteria None Seen Hyaline Casts 0-2 COVID-19 (DENY) Positive A COVID-19 Clin Com See Note 04/28/22 04/28/22 04/28/22 16:49 16:49 16:49 WBC RBC Hgb Hct MCV MCH MCHC RDW Plt Count MPV Immature Gran % (Auto) Neut % (Auto) Lymph % (Auto) [place] % (Auto) Eos % (Auto) Baso % (Auto) Lymph # (Auto) [place] # (Auto) Eos # (Auto) Baso # (Auto) Abs Immat Gran (auto) Absolute Neuts (auto) Absolute Nucleated RBC Nucleated RBC % (auto) Smear Tech's Comments PT 11.2 INR 1.0 D-Dimer High Sensitivty 459 VBG pH VBG pCO2 VBG pO2 VBG HCO3 VBG O2 Saturation VBG Base Excess Sodium Potassium Chloride Carbon Dioxide Anion Gap BUN Creatinine Estim Creat Clear Calc Estimated GFR POC Glucose Random Glucose Lactic Acid Calcium Phosphorus Magnesium Total Bilirubin AST ALT Alkaline Phosphatase Troponin I High Sens 9.2 B-Natriuretic Peptide 340 H Total Protein Albumin Urine Color Urine Appearance Urine pH Ur Specific [place] Urine Protein Urine Glucose (UA) Urine Ketones Urine Blood Urine Nitrite Ur Leukocyte Esterase Urine RBC Urine WBC Ur Squamous Epith Cells Urine Bacteria Hyaline Casts COVID-19 (DENY) COVID-19 Clin Com 04/28/22 04/28/22 04/28/22 18:00 18:00 18:07 WBC 16.7 H RBC 4.38 Hgb 11.6 L Hct 37.5 MCV 85.6 MCH 26.5 L MCHC 30.9 L RDW 13.9 Plt Count 272 MPV 11.4 Immature Gran % (Auto) 1.0 H Neut % (Auto) 91.8 H Lymph % (Auto) 5.0 L [place] % (Auto) 1.4 L Eos % (Auto) 0.4 Baso % (Auto) 0.4 Lymph # (Auto) 0.8 L [place] # (Auto) 0.2 Eos # (Auto) 0.1 Baso # (Auto) 0.1 Abs Immat Gran (auto) 0.16 H Absolute Neuts (auto) 15.3 H Absolute Nucleated RBC 0.000 Nucleated RBC % (auto) 0.0 Smear Tech's Comments VERIFIED PT INR D-Dimer High Sensitivty VBG pH 7.35 VBG pCO2 71 VBG pO2 44 VBG HCO3 40 H VBG O2 Saturation 68.0 VBG Base Excess 11.3 Sodium Potassium Chloride Carbon Dioxide Anion Gap BUN Creatinine Estim Creat Clear Calc Estimated GFR POC Glucose Random Glucose Lactic Acid 1.1 Calcium Phosphorus Magnesium Total Bilirubin AST ALT Alkaline Phosphatase Troponin I High Sens B-Natriuretic Peptide Total Protein Albumin Urine Color Urine Appearance Urine pH Ur Specific [place] Urine Protein Urine Glucose (UA) Urine Ketones Urine Blood Urine Nitrite Ur Leukocyte Esterase Urine RBC Urine WBC Ur Squamous Epith Cells Urine Bacteria Hyaline Casts COVID-19 (DENY) COVID-19 Clin Com 04/29/22 04/29/22 04/29/22 01:46 04:44 04:47 WBC 22.0 H RBC 4.50 Hgb 11.7 L Hct 37.3 MCV 82.9 MCH 26.0 L MCHC 31.4 RDW 14.0 Plt Count 273 MPV 11.0 Immature Gran % (Auto) 0.8 H Neut % (Auto) 88.7 H Lymph % (Auto) 5.5 L [place] % (Auto) 4.8 Eos % (Auto) 0.0 Baso % (Auto) 0.2 Lymph # (Auto) 1.2 [place] # (Auto) 1.1 Eos # (Auto) 0.0 Baso # (Auto) 0.1 Abs Immat Gran (auto) 0.17 H Absolute Neuts (auto) 19.5 H Absolute Nucleated RBC 0.000 Nucleated RBC % (auto) 0.0 Smear Tech's Comments PT INR D-Dimer High Sensitivty VBG pH 7.48 H VBG pCO2 49 VBG pO2 36 VBG HCO3 37 H VBG O2 Saturation 62.0 VBG Base Excess 11.7 Sodium Potassium Chloride Carbon Dioxide Anion Gap BUN Creatinine Estim Creat Clear Calc Estimated GFR POC Glucose 315 H Random Glucose Lactic Acid Calcium Phosphorus Magnesium Total Bilirubin AST ALT Alkaline Phosphatase Troponin I High Sens B-Natriuretic Peptide Total Protein Albumin Urine Color Urine Appearance Urine pH Ur Specific [place] Urine Protein Urine Glucose (UA) Urine Ketones Urine Blood Urine Nitrite Ur Leukocyte Esterase Urine RBC Urine WBC Ur Squamous Epith Cells Urine Bacteria Hyaline Casts COVID-19 (DENY) COVID-19 Clin Com 04/29/22 04/29/22 04/29/22 04:47 05:53 07:28 WBC RBC Hgb Hct MCV MCH MCHC RDW Plt Count MPV Immature Gran % (Auto) Neut % (Auto) Lymph % (Auto) [place] % (Auto) Eos % (Auto) Baso % (Auto) Lymph # (Auto) [place] # (Auto) Eos # (Auto) Baso # (Auto) Abs Immat Gran (auto) Absolute Neuts (auto) Absolute Nucleated RBC Nucleated RBC % (auto) Smear Tech's Comments PT INR D-Dimer High Sensitivty VBG pH VBG pCO2 VBG pO2 VBG HCO3 VBG O2 Saturation VBG Base Excess Sodium 140 Potassium 3.9 D Chloride 96 Carbon Dioxide 34 H Anion Gap 14 BUN 39 H Creatinine 1.26 1.06 Estim Creat Clear Calc 52.0 61.9 Estimated GFR 42 51 POC Glucose 256 H Random Glucose 289 H Lactic Acid Calcium 8.4 Phosphorus 3.2 Magnesium 2.0 Total Bilirubin AST ALT Alkaline Phosphatase Troponin I High Sens B-Natriuretic Peptide Total Protein Albumin 3.3 L Urine Color Urine Appearance Urine pH Ur Specific [place] Urine Protein Urine Glucose (UA) Urine Ketones Urine Blood Urine Nitrite Ur Leukocyte Esterase Urine RBC Urine WBC Ur Squamous Epith Cells Urine Bacteria Hyaline Casts COVID-19 (DENY) COVID-19 Clin Com 04/29/22 11:48 WBC RBC Hgb Hct MCV MCH MCHC RDW Plt Count MPV Immature Gran % (Auto) Neut % (Auto) Lymph % (Auto) [place] % (Auto) Eos % (Auto) Baso % (Auto) Lymph # (Auto) [place] # (Auto) Eos # (Auto) Baso # (Auto) Abs Immat Gran (auto) Absolute Neuts (auto) Absolute Nucleated RBC Nucleated RBC % (auto) Smear Tech's Comments PT INR D-Dimer High Sensitivty VBG pH VBG pCO2 VBG pO2 VBG HCO3 VBG O2 Saturation VBG Base Excess Sodium Potassium Chloride Carbon Dioxide Anion Gap BUN Creatinine Estim Creat Clear Calc Estimated GFR POC Glucose 214 H Random Glucose Lactic Acid Calcium Phosphorus Magnesium Total Bilirubin AST ALT Alkaline Phosphatase Troponin I High Sens B-Natriuretic Peptide Total Protein Albumin Urine Color Urine Appearance Urine pH Ur Specific [place] Urine Protein Urine Glucose (UA) Urine Ketones Urine Blood Urine Nitrite Ur Leukocyte Esterase Urine RBC Urine WBC Ur Squamous Epith Cells Urine Bacteria Hyaline Casts COVID-19 (DENY) COVID-19 Clin Com Progress Note: A&P Assessment and plan (1) Dyspnea: Status: Acute (2) Hypoxia: Status: Acute (3) COVID-19: Status: Acute (4) CKD (chronic kidney disease): Status: Acute (5) Obesity: Status: Acute (6) Influenza A: Status: Acute (7) Chronic lymphocytic leukemia (CLL), B-cell: Status: Acute Plan So this 72-year-old clearly has immune suppression this being her 3rd viral infection in in recent months once requiring her to be intubated for a period of time and right now has compensated cardiac function but history of diastolic dysfunction and she is an obese adeno type 2 diabetic and now has her diet restored her insulin coverage and she is off BiPAP dependency and personally I would I would just continue until the completion of the [employer] Quality Stroke Does the patient have a stroke diagnosis?: No VTE Prior VTE?: No VTE Risk Level:: Medical - moderate - high VTE Device Contraindication: N/A - Device Ordered VTE Drug Contraindication: N/A - Med Ordered
--- NOTE | 2022-04-29 13:50 | MHC.CM.PN ---
Pt in ICU on Bipap w/COVID: Information obtained from EMR and conversation w/SNF staff. Pt is a LTC resident of [facility] in [place] and will return when medically cleared. She is a max assist for transfers and can propel herself short distances in a w/c. Staff state she is very noncompliant w/dietary needs citing she consumes sausage and/or hotdogs everyday Pt will need BLS transport to home. MOLST and HCP on file. CM to follow for d/c needs
[2022-04-29 16:51] LABS: Glucose, Whole Blood 244 mg/dL (60-115)
[2022-04-29] MEDS: bisacodyL 10 MG SUPP.RECT PR (17:04)
[2022-04-29 19:33] LABS: Glucose, Whole Blood 175 mg/dL (60-115)
[2022-04-29] MEDS: Atorvastatin Calcium 10 MG TABLET PO (20:38)
[2022-04-29] MEDS: Latanoprost 0.005 % Ophth Sol 2.5 ML DROPS 1 DROP EYE-BOTH (21:29)
[2022-04-30] VITALS (8 sets, daily range): BP systolic 131–160; BP diastolic 58–72; PULSE 58–80; RESP 16–20; TEMP 36.6–37.1; O2SAT 93–98; BMI 48.9
[2022-04-30] MEDS: Acetaminophen 325 MG TABLET 650 MG PO (03:20)
[2022-04-30] MEDS: Albuterol Sulfate (0.042%) 1.25 MG/3 ML VIAL.NEB 0.63 MG INHALE (05:05)
[2022-04-30] MEDS: Levothyroxine Sodium 175 MCG TABLET PO (06:03)
[2022-04-30] MEDS: Heparin Sodium,Porcine 5,000 UNIT/ML VIAL 5000 UNIT SUBCUT ×3 (06:04→21:03)
[2022-04-30 07:12] LABS: Glucose, Whole Blood 189 mg/dL (60-115)
[2022-04-30] MEDS: Insulin Lispro 100 UNIT/ML 3 ML VIAL SUBCUT ×4 (07:28→21:16)
[2022-04-30] MEDS: Aspirin 325 MG TABLET PO (07:29)
[2022-04-30] MEDS: amLODIPine Besylate 10 MG TABLET PO (07:29)
[2022-04-30] MEDS: Metoprolol Tartrate 50 MG TABLET PO ×2 (07:29→21:01)
[2022-04-30] MEDS: Multivitamin TABLET 1 TAB PO (07:30)
[2022-04-30] MEDS: Nystatin Powder 15 GM BOTTLE 1 APPL TOPICAL ×2 (07:33→21:03)
[2022-04-30] MEDS: prednisoLONE Acetate 1 % Oph Susp 5 ML DRPBTL 1 DROP EYE-RIGHT ×4 (07:33→21:03)
[2022-04-30] MEDS: Magnesium Oxide 400 MG TABLET PO (07:37)
--- NOTE | 2022-04-30 09:03 | P.CDIC_ITS ---
CDI Concurrent Query Documentation Clarification: PHYSICIAN'S DOCUMENTATION REQUEST Date of Query: 04/30/22 0903 Patient Name: Cindy Toney Admit Date: 04/28/22 Dear Doctor, A review of the medical record indicates additional documentation may be needed. Please review below and update the documentation accordingly. Clinical Indicators: The following clinical information was noted in the record: Risk Factors/Clinical Indicators/Treatments 04/27/22: BUN 38 Creatinine 1.23 Est. GFR 43 per MD progress note 04/29/22: CKD Please clarify which of the following accurately represents the patient's renal status: * CKD, please provide stage - see criteria * Other (please specify) * Unable to determine Criteria for LEO* Stages of Chronic Kidney Disease* 1. Increase in serum creatinine by ? 0.3 mg/dL Level Description GFR (?26.5 micromol/L) within 48 hours, or G1 Normal or High > 90 2. Increase in serum creatinine to ?1.5 times baseline, G2 Mildly decreased 60 ? 89 which is known or presumed to have occurred within 7 days, or G3a Mildly to moderately decreased 45 ? 59 3. Urine volume <0.5 mL/kg/hour for six hours G3b Moderately to severely decreased 30 - 44 G4 Severely decreased 15 ? 29 G5 Kidney failure < 15 *Source: Kidney Disease: Improving Global Outcomes (KDIGO) 2012 Use of terms such as suspected, likely, concern for, or probable (associated with a specific diagnosis that is being evaluated, monitored, or treated as if it exists) are acceptable and can be coded in the inpatient setting, when documented at the time of discharge. Thank you, Vianney Lui RN Extension: [phone] Please use your independent medical judgment in providing your response. THIS QUERY IS PART OF THE PERMANENT MEDICAL RECORD
[2022-04-30] MEDS: Fluticasone/Vilanterol 200/25 BLST.W.DEV 1 PUFF INHALE (09:31)
[2022-04-30] MEDS: Docusate Sodium 100 MG CAPSULE 200 MG PO (09:32)
[2022-04-30] MEDS: Dorzolamide HCl 2 % Ophth Sol 10 ML DRPBTL 1 DROP EYE-RIGHT ×2 (09:32→21:03)
[2022-04-30] MEDS: Brimonidine Tartrate 0.2% Oph 5 ML BOTTLE 1 DROP EYE-RIGHT ×2 (09:32→21:03)
[2022-04-30] MEDS: guaiFENesin DM 100/10/5 ML 5 ML SYRUP 10 ML PO ×3 (09:32→21:03)
[2022-04-30 11:03] LABS: Glucose, Whole Blood 236 mg/dL (60-115)
--- NOTE | 2022-04-30 14:08 | MHC.CLN ---
PT WITH INCREASED NUTRITION RISK R/T PRESSURE INJURY DIET RX: 1800DM-APPROPRIATE RECOMMEND ADDING ENSURE MAX TO INCREASE PO PROTEIN SUPP PROVIDES 300KCALS, 60G PROTEIN WITH 100% ACCEPTANCE MONITOR PO AND SUPP ACCEPTANCE SEE ALSO FULL CLINICAL NUTRITION ASSESSMENT
[2022-04-30 15:21] LABS: Glucose, Whole Blood 251 mg/dL (60-115)
--- NOTE | 2022-04-30 16:47 | P.PNIM_ITS ---
Subjective Subjective Date of Service: 04/30/22 Interval History: Complaining of dry cough was unable to sleep due to coughing otherwise denies shortness of breath, no chest pain, no palpitations, no fevers, no chills tolerating diet with no nausea, no vomiting, no abdominal pain, complaining of constipation, no lightheadedness, no dizziness, no other acute issues overnight Review of Systems Review of Systems: Yes all other systems are reviewed and are negative Physical Exam Vital Signs: Vital Signs: Last Vital Signs Temp 98.0 F 04/30/22 15:29 Pulse 68 04/30/22 15:29 Resp 19 04/30/22 15:29 BP 131/63 04/30/22 15:29 Pulse Ox 96 04/30/22 15:29 O2 Del Method 04/30/22 15:29 O2 Flow Rate 2 04/30/22 15:29 FiO2 25 04/29/22 10:00 Oxygen Flow Rate 4 04/28/22 14:41 BMI result Body Mass Index 48.9 Const: Other: General awake aler t, in no acute dis tress.? Neck suppl e no JVD. CVS? reg ular rate rhythm, Respiratory lungs diminished breath sounds,no respirat ory distress, no w heeze, no rhonchi. Gastrointestinal abdomen soft, nont [place], bowel sound s audible, no guar ding , no rigidity . Extremities no e zack. Neuro nonfoc al patient moving all 4 extremity sp eech clear. Skin c hronic skin discol oration lower extr emities Psych appr opriate affect Objective Data Active Medications Acetaminophen (Acetaminophen 325 Mg Tablet) 650 mg PO Q6H PRN PRN Reason: Pain, Moderate (Pain Scale 4-6 Last Admin: 04/30/22 03:20 Dose: 650 mg Documented By: DANE Albuterol Sulfate (Albuterol Sulfate (0.042%) 1.25 Mg/3 Ml Vial.Neb) 0.63 mg INHALE RQ4H PRN PRN Reason: Wheezing Last Admin: 04/30/22 05:05 Dose: 0.63 mg Documented By: KERON Amlodipine Besylate (Amlodipine Besylate 10 Mg Tablet) 10 mg PO DAILY LAAN; Protocol Last Admin: 04/30/22 07:29 Dose: 10 mg Documented By: OWEN Aspirin (Aspirin 325 Mg Tablet) 325 mg PO DAILY [facility] Last Admin: 04/30/22 07:29 Dose: 325 mg Documented By: OWEN Atorvastatin Calcium (Atorvastatin Calcium 10 Mg Tablet) 10 mg PO BEDTIME [facility] Last Admin: 04/29/22 20:38 Dose: 10 mg Documented By: DANE Bisacodyl (Bisacodyl 10 Mg Supp.Rect) 10 mg MS DAILY PRN PRN Reason: Constipation Last Admin: 04/29/22 17:04 Dose: 10 mg Documented By: TRAVIS Brimonidine Tartrate (Brimonidine Tartrate 0.2% Oph 5 Ml Bottle) 1 drop EYE- RIGHT BID [facility] Last Admin: 04/30/22 09:32 Dose: 1 drop Documented By: OWEN Dextrose (Dextrose 50 % 25 Gm/50 Ml Syringe) 25 gm IVPUSH Q15M PRN; Protocol PRN Reason: per Hypoglycemia Standing Ord. Dorzolamide HCl (Dorzolamide Hcl 2 % Ophth Mona 10 Ml Drpbtl) 1 drop EYE-RIGHT BID [facility] Last Admin: 04/30/22 09:32 Dose: 1 drop Documented By: OWEN Fluticasone/Vilanterol (Fluticasone/Vilanterol 200/25 Blst.W.Dev) 1 puff INHALE RDAILY [facility] Last Admin: 04/30/22 09:31 Dose: 1 puff Documented By: OWEN Furosemide (Furosemide 40 Mg Tablet) 40 mg PO DAILY@1200 ALAN; Protocol Last Admin: 04/29/22 12:38 Dose: Not Given Documented By: TRAVIS Non-Admin Reason: on hold Furosemide (Furosemide 20 Mg Tablet) 60 mg PO DAILY [facility]; Protocol Last Admin: 04/29/22 10:29 Dose: 60 mg Documented By: TRAVIS Glucose (Glucose Gel 15 Gm Gel..Gram.) 15 gm PO Q15M PRN; Protocol PRN Reason: per Hypoglycemia Standing Ord. Guaifenesin/Dextromethorphan (Guaifenesin Dm 100/10/5 Ml 5 Ml Syrup) 10 ml PO TID [facility] Last Admin: 04/30/22 14:16 Dose: 10 ml Documented By: OWEN Heparin Sodium (Porcine) (Heparin Sodium,Porcine 5,000 Unit/Ml Vial) 5,000 unit SUBCUT Q8H [facility] Last Admin: 04/30/22 14:15 Dose: 5,000 unit Documented By: OWEN Hydroxychloroquine Sulfate (Hydroxychloroquine Sulfate 200 Mg Tablet) 200 mg PO BID [facility] Last Admin: 04/29/22 10:28 Dose: 200 mg Documented By: TRAVIS Insulin Human Lispro (Insulin Lispro 100 Unit/Ml 3 Ml Vial) 0 unit SUBCUT QIDACHS [facility]; Protocol Last Admin: 04/30/22 16:45 Dose: 6 unit Documented By: OWEN Latanoprost (Latanoprost 0.005 % Ophth Mona 2.5 Ml Drops) 1 drop EYE-BOTH BEDTIME [facility] Last Admin: 04/29/22 21:29 Dose: 1 drop Documented By: DANE Levothyroxine Sodium (Levothyroxine Sodium 175 Mcg Tablet) 175 mcg PO DAILY@0600 [facility] Last Admin: 04/30/22 06:03 Dose: 175 mcg Documented By: DANE Magnesium Oxide (Magnesium Oxide 400 Mg Tablet) 400 mg PO DAILY [facility] Last Admin: 04/30/22 07:37 Dose: 400 mg Documented By: OWEN Metoprolol Tartrate (Metoprolol Tartrate 50 Mg Tablet) 50 mg PO BID [facility]; Protocol Last Admin: 04/30/22 07:29 Dose: 50 mg Documented By: OWEN Multivitamins/Vitamin C (Multivitamin Tablet) 1 tab PO DAILY [facility] Last Admin: 04/30/22 07:30 Dose: 1 tab Documented By: OWEN Non-Formulary Medication (Nirmatrelvir-Ritonavir [Paxlovid (Eua)]) 0 tab PO .COMPLEX [facility] Non-Formulary Medication (Umeclidinium [Incruse Ellipta]) 1 inhalation INHALE DAILY [facility] Nystatin (Nystatin Powder 15 Gm Bottle) 1 appl TOPICAL BID [facility]; Protocol Last Admin: 04/30/22 07:33 Dose: 1 appl Documented By: OWEN Prednisolone Acetate (Prednisolone Acetate 1 % Oph Susp 5 Ml Drpbtl) 1 drop EYE-RIGHT QID [facility] Last Admin: 04/30/22 16:45 Dose: 1 drop Documented By: OWEN Labs 04/29/22 04:47 04/29/22 07:28 Labs: Laboratory Results - last 24 hr 04/29/22 04/29/22 04/30/22 16:47 19:06 07:08 POC Glucose 244 H 175 H 189 H 04/30/22 04/30/22 10:56 15:15 POC Glucose 236 H 251 H Microbiology Microbiology Results: Microbiology 04/28/22 18:00 Blood Culture - Preliminary Blood - Venous No growth after 24 hours. 04/28/22 16:49 Blood Culture - Preliminary Blood - Venous No growth after 24 hours. Assessment and Plan (1) COVID-19: Status: Acute (2) Obesity: Status: Acute (3) Hypoxia: Status: Acute Plan 72-year-old female with pertinent history of chronic hypoxemic respiratory failure due to COPD on 2 L supplemental oxygen, chronic diastolic heart failure, chronic kidney disease, insulin-dependent diabetes mellitus, essential hypertension, hypothyroidism, mood disorder, mixed hyperlipidemia, CLL being followed by Dr. Ruiz presented to [facility] due to worsening shortness of breath patient was recently diagnosed to have COVID-19 and was receiving packs Flo at the nursing facility but because of increasing dyspnea and hypoxia she was transferred to [facility] with patient was treated with BiPAP and was admitted to ICU ,patient responded well to NIPPV and was subsequently transitioned to 2 L of nasal cannula with no recurrent respiratory distress therefore transferred to telemetry on 04/29. #.? Acute on chronic hypoxemic respiratory failure secondary to COVID-19 infection with no super added bacterial superinfection, no evidence of acute CHF, no acute COPD exacerbation ?? ? Feeling better continue home inhalers , added cough medication. ?? ? Currently on 2 L of supplemental oxygen finger oximetry 96%, family unable to bring Paxlovid from nursing facility. # leukocytosis likely due to IV steroids received in ED patient afebrile, received IV vanco and Zosyn discontinued since no evidence of infection, blood cultures x2 negative #.? Insulin-dependent type 2 diabetes mellitus continue insulin sliding scale, resume home dose of Lantus and monitor blood sugar #.? Hypothyroidism: Continue Synthroid #.? Mood disorder:? Resume citalopram upon discharge #.? Essential hypertension:? Continue metoprolol # Ch. diastolic congestive heart failure continue home dose of Lasix # morbid obesity low-calorie diet recommended likely contributing to high blood sugars. # CLL patient has an appointment with Dr. Ruiz next month. DVT prophylaxis:? Heparin subQ Full code Continue inpatient treatment for COVID-19 infection close monitoring for recurrent respiratory distress and hypoxia if remains stable DC to rehab in next 24 hours. Time Spent With Patient Time: Total time managing care of this patient today ____ minutes. Quality Stroke Does the patient have a stroke diagnosis?: No VTE Prior VTE?: No VTE Risk Level:: Medical - moderate - high VTE Device Contraindication: N/A - Device Ordered VTE Drug Contraindication: N/A - Med Ordered
[2022-04-30 19:08] LABS: Glucose, Whole Blood 296 mg/dL (60-115)
[2022-04-30] MEDS: Atorvastatin Calcium 10 MG TABLET PO (21:01)
[2022-04-30] MEDS: Latanoprost 0.005 % Ophth Sol 2.5 ML DROPS 1 DROP EYE-BOTH (21:03)
[2022-04-30] MEDS: Insulin Glargine,Hum.rec.anlog 100 UNIT/ML 10 ML VIAL 20 UNIT SUBCUT (21:16)
[2022-05-01] VITALS (7 sets, daily range): BP systolic 130–164; BP diastolic 53–73; PULSE 58–80; RESP 16–20; TEMP 36–37.1; O2SAT 95–98; BMI 46.9
[2022-05-01] MEDS: Heparin Sodium,Porcine 5,000 UNIT/ML VIAL 5000 UNIT SUBCUT ×3 (06:24→21:30)
[2022-05-01] MEDS: Levothyroxine Sodium 175 MCG TABLET PO (06:24)
[2022-05-01 07:26] LABS: Glucose, Whole Blood 174 mg/dL (60-115)
[2022-05-01] MEDS: Insulin Lispro 100 UNIT/ML 3 ML VIAL SUBCUT ×4 (07:48→21:30)
[2022-05-01] MEDS: guaiFENesin DM 100/10/5 ML 5 ML SYRUP 10 ML PO ×3 (07:48→21:28)
[2022-05-01] MEDS: Aspirin 325 MG TABLET PO (07:48)
[2022-05-01] MEDS: amLODIPine Besylate 10 MG TABLET PO (07:49)
[2022-05-01] MEDS: Magnesium Oxide 400 MG TABLET PO (07:49)
[2022-05-01] MEDS: Metoprolol Tartrate 50 MG TABLET PO ×2 (07:49→21:28)
[2022-05-01] MEDS: Multivitamin TABLET 1 TAB PO (07:49)
[2022-05-01] MEDS: Fluticasone/Vilanterol 200/25 BLST.W.DEV 1 PUFF INHALE (07:54)
[2022-05-01] MEDS: Brimonidine Tartrate 0.2% Oph 5 ML BOTTLE 1 DROP EYE-RIGHT ×2 (07:54→21:32)
[2022-05-01] MEDS: Dorzolamide HCl 2 % Ophth Sol 10 ML DRPBTL 1 DROP EYE-RIGHT ×2 (07:54→21:31)
[2022-05-01] MEDS: prednisoLONE Acetate 1 % Oph Susp 5 ML DRPBTL 1 DROP EYE-RIGHT ×4 (07:54→21:32)
[2022-05-01] MEDS: Nystatin Powder 15 GM BOTTLE 1 APPL TOPICAL ×2 (07:55→21:31)
[2022-05-01] MEDS: dexAMETHasone 6 MG TABLET PO (10:05)
[2022-05-01 10:36] LABS: Hematocrit 33.8 % (37.0-47.0); Hemoglobin 10.5 g/dl (12.0-16.0); Mean Corpuscular HGB Conc 31.1 g/dl (31.0-35.0); Mean Corpuscular Hemoglobin 25.9 pg (27.0-33.0); Mean Corpuscular Volume 83.5 fL (80.0-98.0); Mean Platelet Volume 10.8 fL (9.4-12.3); Platelet Count 184 X10*3/uL (160-400); Red Blood Count 4.05 X10*6/uL (4.20-5.50); Red Cell Distribution Width 14.1 % (11.0-16.0); White Blood Count 13.3 X10*3/uL (4.8-10.8)
[2022-05-01 10:47] LABS: Anion Gap 10 (12-20); Blood Urea Nitrogen 29 mg/dL (9-16); C Reactive Protein 15.15 mg/dL (< or = 0.50); Calcium 8.1 mg/dL (8.4-10.2); Carbon Dioxide 34 mmol/L (22-29); Chloride 96 mmol/L (96-108); Creatinine Clr Calc Pharmacy 61.6; Estimated Glomerular Filt Rate 52; Glucose Random 263 mg/dL (60-115); Potassium 3.4 mmol/L (3.3-5.1); Sodium 137 mmol/L (135-145)
[2022-05-01 11:09] LABS: Procalcitonin 0.19 ng/mL
[2022-05-01 11:23] LABS: Glucose, Whole Blood 253 mg/dL (60-115)
--- NOTE | 2022-05-01 14:44 | HO.PM.IMPN ---
Subjective Subjective Date of Service: 05/01/22 Interval History: mild wheezing dyspnea improved no chest pain Review of Systems Review of Systems: Yes all other systems are reviewed and are negative Physical Exam Vital Signs: Vital Signs: Last Vital Signs Temp 97.5 F 05/01/22 11:14 Pulse 58 05/01/22 11:14 Resp 20 05/01/22 11:14 BP 130/53 L 05/01/22 11:14 Pulse Ox 98 05/01/22 11:14 O2 Del Method 05/01/22 11:14 O2 Flow Rate 2 05/01/22 11:14 FiO2 25 04/29/22 10:00 Oxygen Flow Rate 4 04/28/22 14:41 BMI result Body Mass Index 46.9 Gen: in no acute distress HEENT: sclera anicteric, moist mucus membranes Neck: supple Lungs: diminished breath sounds, scattered expiratory wheezing Heart: regular rate and rhythm, no murmurs Abd: soft, non-tender, non-distended Ext: no edema Skin: warm/well-perfused Neuro: alert and oriented x3, no focal findings Psych: appropriate affect Objective Data Active Medications Acetaminophen (Acetaminophen 325 Mg Tablet) 650 mg PO Q6H PRN PRN Reason: Pain, Moderate (Pain Scale 4-6 Last Admin: 04/30/22 03:20 Dose: 650 mg Documented By: DANE Albuterol Sulfate (Albuterol Sulfate (0.042%) 1.25 Mg/3 Ml Vial.Neb) 0.63 mg INHALE RQ4H PRN PRN Reason: Wheezing Last Admin: 04/30/22 05:05 Dose: 0.63 mg Documented By: KERON Amlodipine Besylate (Amlodipine Besylate 10 Mg Tablet) 10 mg PO DAILY [facility]; Protocol Last Admin: 05/01/22 07:49 Dose: 10 mg Documented By: JAN Aspirin (Aspirin 325 Mg Tablet) 325 mg PO DAILY [facility] Last Admin: 05/01/22 07:48 Dose: 325 mg Documented By: JAN Atorvastatin Calcium (Atorvastatin Calcium 10 Mg Tablet) 10 mg PO BEDTIME [facility] Last Admin: 04/30/22 21:01 Dose: 10 mg Documented By: ANTOIC Bisacodyl (Bisacodyl 10 Mg Supp.Rect) 10 mg [place] DAILY PRN PRN Reason: Constipation Last Admin: 04/29/22 17:04 Dose: 10 mg Documented By: TRAVIS Brimonidine Tartrate (Brimonidine Tartrate 0.2% Oph 5 Ml Bottle) 1 drop EYE-RIGHT BID [facility] Last Admin: 05/01/22 07:54 Dose: 1 drop Documented By: JAN Dexamethasone (Dexamethasone 6 Mg Tablet) 6 mg PO DAILY [facility] Stop: 05/10/22 09:01 Last Admin: 05/01/22 10:05 Dose: 6 mg Documented By: JAN Dextrose (Dextrose 50 % 25 Gm/50 Ml Syringe) 25 gm IVPUSH Q15M PRN; Protocol PRN Reason: per Hypoglycemia Standing Ord. Dorzolamide HCl (Dorzolamide Hcl 2 % Ophth Mona 10 Ml Drpbtl) 1 drop EYE-RIGHT BID [facility] Last Admin: 05/01/22 07:54 Dose: 1 drop Documented By: JAN Fluticasone/Vilanterol (Fluticasone/Vilanterol 200/25 Blst.W.Dev) 1 puff INHALE RDAILY [facility] Last Admin: 05/01/22 07:54 Dose: 1 puff Documented By: DAVID Furosemide (Furosemide 40 Mg Tablet) 40 mg PO DAILY@1200 ALAN; Protocol Last Admin: 04/29/22 12:38 Dose: Not Given Documented By: TRAVIS Non-Admin Reason: on hold Furosemide (Furosemide 20 Mg Tablet) 60 mg PO DAILY [facility]; Protocol Last Admin: 04/29/22 10:29 Dose: 60 mg Documented By: TRAVIS Glucose (Glucose Gel 15 Gm Gel..Gram.) 15 gm PO Q15M PRN; Protocol PRN Reason: per Hypoglycemia Standing Ord. Guaifenesin/Dextromethorphan (Guaifenesin Dm 100/10/5 Ml 5 Ml Syrup) 10 ml PO TID [facility] Last Admin: 05/01/22 07:48 Dose: 10 ml Documented By: JAN Heparin Sodium (Porcine) (Heparin Sodium,Porcine 5,000 Unit/Ml Vial) 5,000 unit SUBCUT Q8H [facility] Last Admin: 05/01/22 06:24 Dose: 5,000 unit Documented By: ANTOIC Hydroxychloroquine Sulfate (Hydroxychloroquine Sulfate 200 Mg Tablet) 200 mg PO BID [facility] Last Admin: 04/29/22 10:28 Dose: 200 mg Documented By: TRAVIS Insulin Glargine (Insulin Glargine,Hum.Rec.Anlog 100 Unit/Ml 10 Ml Vial) 20 unit SUBCUT BEDTIME [facility] Last Admin: 04/30/22 21:16 Dose: 20 unit Documented By: SRINIVAS Insulin Human Lispro (Insulin Lispro 100 Unit/Ml 3 Ml Vial) 0 unit SUBCUT QIDACHS [facility]; Protocol Last Admin: 05/01/22 12:59 Dose: 6 unit Documented By: NIKI Latanoprost (Latanoprost 0.005 % Ophth Mona 2.5 Ml Drops) 1 drop EYE-BOTH BEDTIME [facility] Last Admin: 04/30/22 21:03 Dose: 1 drop Documented By: SRINIVAS Levothyroxine Sodium (Levothyroxine Sodium 175 Mcg Tablet) 175 mcg PO DAILY@0600 [facility] Last Admin: 05/01/22 06:24 Dose: 175 mcg Documented By: SRINIVAS Magnesium Oxide (Magnesium Oxide 400 Mg Tablet) 400 mg PO DAILY [facility] Last Admin: 05/01/22 07:49 Dose: 400 mg Documented By: JAN Metoprolol Tartrate (Metoprolol Tartrate 50 Mg Tablet) 50 mg PO BID [facility]; Protocol Last Admin: 05/01/22 07:49 Dose: 50 mg Documented By: JAN Multivitamins/Vitamin C (Multivitamin Tablet) 1 tab PO DAILY [facility] Last Admin: 05/01/22 07:49 Dose: 1 tab Documented By: JAN Non-Formulary Medication (Nirmatrelvir-Ritonavir [Paxlovid (Eua)]) 0 tab PO .COMPLEX [facility] Non-Formulary Medication (Umeclidinium [Incruse Ellipta]) 1 inhalation INHALE DAILY [facility] Nystatin (Nystatin Powder 15 Gm Bottle) 1 appl TOPICAL BID [facility]; Protocol Last Admin: 05/01/22 07:55 Dose: 1 appl Documented By: JAN Prednisolone Acetate (Prednisolone Acetate 1 % Oph Susp 5 Ml Drpbtl) 1 drop EYE-RIGHT QID [facility] Last Admin: 05/01/22 13:02 Dose: 1 drop Documented By: NIKI Labs 05/01/22 10:21 05/01/22 10:21 Labs: Laboratory Results - last 24 hr 04/30/22 04/30/22 05/01/22 15:15 18:59 07:16 MCV MCH MCHC RDW Plt Count MPV Absolute Nucleated RBC Nucleated RBC % (auto) Anion Gap Estim Creat Clear Calc Estimated GFR POC Glucose 251 H 296 H 174 H Random Glucose Calcium C-Reactive Protein Procalcitonin 05/01/22 05/01/22 05/01/22 10:21 10:21 10:21 MCV 83.5 MCH 25.9 L MCHC 31.1 RDW 14.1 Plt Count 184 D MPV 10.8 Absolute Nucleated RBC 0.000 Nucleated RBC % (auto) 0.0 Anion Gap 10 L Estim Creat Clear Calc 61.6 Estimated GFR 52 POC Glucose Random Glucose 263 H Calcium 8.1 L C-Reactive Protein 15.15 H Procalcitonin 0.19 05/01/22 11:16 MCV MCH MCHC RDW Plt Count MPV Absolute Nucleated RBC Nucleated RBC % (auto) Anion Gap Estim Creat Clear Calc Estimated GFR POC Glucose 253 H Random Glucose Calcium C-Reactive Protein Procalcitonin Microbiology Microbiology Results: Microbiology 04/28/22 18:00 Blood Culture - Preliminary Blood - Venous No growth after 48 hours. 04/28/22 16:49 Blood Culture - Preliminary Blood - Venous No growth after 48 hours. Assessment and Plan (1) COVID-19: Status: Acute (2) Obesity: Status: Acute (3) Hypoxia: Status: Acute Plan hospital d#4 72-year-old female with chronic hypoxemic respiratory failure due to COPD on 2 L supplemental oxygen, chronic diastolic heart failure, chronic kidney disease, insulin-dependent diabetes mellitus, essential hypertension, hypothyroidism, mood disorder, mixed hyperlipidemia, and CLL being followed by Dr. Ruiz presented to [facility] due to worsening shortness of breath. Diagnosed with COVID-19 04/27 and was receiving Paxlovid at [facility] where she is a long-term resident, but because of increasing dyspnea and hypoxia she was transferred to [place] ED. She was treated with BiPAP and admitted to ICU and quickly improved; subsequently transitioned to 2 L of nasal cannula with no recurrent respiratory distress therefore transferred to telemetry on 04/29. # acute on chronic hypoxemic respiratory failure secondary to COVID-19 infection with no super added bacterial superinfection, no evidence of acute CHF, no acute COPD exacerbation - got 1 dose of Solu-medrol in ED 04/29, will give dexamethasone 6 mg/d x10d - home inhalers # right middle lobe collapse with a right hilar soft tissue density mass likely obstructing right middle lobe bronchus. - Pulmonology consultation? # leukocytosis - likely due to IV steroids; received IV vanco and Zosyn and these were discontinued as bacterial infection was thought unlikely # DM2 - basal-bolus insulin # hypothyroidism - LT4 # mood disorder - citalopram # HTN - metoprolol # chronic HFpEF - metoprolol furosemide # morbid obesity - comorbid condition # CLL - outpt f/u with Dr Ruiz # VTE ppx: UFH # dispo: anticipate return to SNF possibly next 1d In my clinical judgment, the patient requires continued inpatient hospitalization for the following reasons:pulmonology consultation Time Spent With Patient Time: Total time managing care of this patient today __45__ minutes. Quality Stroke Does the patient have a stroke diagnosis?: No VTE Prior VTE?: No VTE Risk Level:: Medical - moderate - high VTE Device Contraindication: N/A - Device Ordered VTE Drug Contraindication: N/A - Med Ordered
[2022-05-01 16:13] LABS: Glucose, Whole Blood 415 mg/dL (60-115)
--- NOTE | 2022-05-01 16:51 | PC.NURSE ---
Pt.'s blood sugar @ 1630 ---415; pt asymptomatic, 10 units of schedule insulin administered, MD notified, no new order received.
[2022-05-01 17:37] LABS: Glucose, Whole Blood 424 mg/dL (60-115)
[2022-05-01 19:56] LABS: Glucose, Whole Blood 507 mg/dL (60-115)
--- NOTE | 2022-05-01 20:59 | P.CONPL_ITS ---
History of Present Illness History of Present Illness Consult date: 05/01/22 Chief complaint: Dyspnea Narrative: This is an in-patient pulmonary consaultation. The patient is a 72-year-old fe male with past medical history of? O2 dependent COPD,CKD, CLL, CHF, DM 2 with insulin dependence, HTN, HLD, hypothyroidism, pleural effusion, pseudotumor cerebri, PVD, past infection with ESBL Klebsiella?who was sent by the retirement where she resides?for evaluation of increasing shortness of breath.? She was seen here at [facility] – [place], [place] in the emergency room yesterday and diagnosed with COVID-19 and started on Paxlovid.?She had previously been admitted withrespiratory failure requiring invasive ventilation and underwent a bronchoscopy/EBUS to assess lymphadenopathy. She did have evidence of bronchomalecia and blood dyscrasia. She had a repeat CT chest demonstrating airspace disease and mass like density along with effusions. Likely that alot of the changes are related to her covid infection. Also need to consider post covid bacterial infections. Review of Systems Constitutional: Comments: General malaise. Cardiovascular: Comments: Chest pain is described Respiratory: Comments: Dyspnea and cough is described. No sputum Gastrointestinal: Comments: No nausea vomiting diarrhea or abdominal pain Neurologic: Comments: General malaise and weakness without focal weakness [facility] Past Medical History Medical History (Updated 05/01/22 @ 21:15 by Blaise Julian MD) Chronic lymphocytic leukemia (CLL), B-cell CKD (chronic kidney disease) CLL (chronic lymphocytic leukemia) Congestive heart failure COVID Diabetes mellitus with insulin therapy Essential hypertension HLD (hyperlipidemia) HTN (hypertension) Hypothyroidism Hypoxia Infection with ESBL Klebsiella oxytoca Klebsiella pneumonia Lower extremity edema Lymphadenopathy, mediastinal Migraine Obesity Pleural effusion Pleural effusion Pneumonia due to COVID-19 virus Pseudotumor cerebri PVD (peripheral vascular disease) Suspected deep tissue injury Family History Family History Mother Heart attack, Onset Age: 92 Father Heart attack, Onset Age: 66 Other Diabetes Surgical History Surgical History H/O cataract extraction H/O hysterectomy for benign disease Hx of cholecystectomy S/P appendectomy Social History Social History Household Members: Family Household Members Other:: patient came from a rehab facility, been there since dec Housing: House Do you presently have visiting nurse or other home services: No Alcohol intake: never Patient Tobacco Use Status: Former Tobacco user Smoked in Last 30 Days: No Use of substances other than those prescribed or required for medical reasons: No Currently Displaying Signs/Symptoms of Drug Intoxication Withdrawal: No Advance Directives: Yes Advance Directives on File: Yes Advance Directives Date on File: 09/26/20 service: No Current occupational status: disabled Meds Allergies Allergy/AdvReac Type Severity Reaction Status Date / Time oxycodone [From Percocet] Allergy Intermediate Rash Verified 04/27/22 11:42 lisinopril Allergy Unknown Unknown Verified 04/27/22 11:42 Active Medications: Current Medications Acetaminophen (Acetaminophen 325 Mg Tablet) 650 mg PO Q6H PRN PRN Reason: Pain, Moderate (Pain Scale 4-6 Last Admin: 04/30/22 03:20 Dose: 650 mg Albuterol Sulfate (Albuterol Sulfate (0.042%) 1.25 Mg/3 Ml Vial.Neb) 0.63 mg INHALE RQ4H PRN PRN Reason: Wheezing Last Admin: 04/30/22 05:05 Dose: 0.63 mg Amlodipine Besylate (Amlodipine Besylate 10 Mg Tablet) 10 mg PO DAILY [facility]; Protocol Last Admin: 05/01/22 07:49 Dose: 10 mg Aspirin (Aspirin 325 Mg Tablet) 325 mg PO DAILY [facility] Last Admin: 05/01/22 07:48 Dose: 325 mg Atorvastatin Calcium (Atorvastatin Calcium 10 Mg Tablet) 10 mg PO BEDTIME [facility] Last Admin: 04/30/22 21:01 Dose: 10 mg Bisacodyl (Bisacodyl 10 Mg Supp.Rect) 10 mg CO DAILY PRN PRN Reason: Constipation Last Admin: 04/29/22 17:04 Dose: 10 mg Brimonidine Tartrate (Brimonidine Tartrate 0.2% Oph 5 Ml Bottle) 1 drop EYE- RIGHT BID [facility] Last Admin: 05/01/22 07:54 Dose: 1 drop Dexamethasone (Dexamethasone 6 Mg Tablet) 6 mg PO DAILY [facility] Stop: 05/10/22 09:01 Last Admin: 05/01/22 10:05 Dose: 6 mg Dextrose (Dextrose 50 % 25 Gm/50 Ml Syringe) 25 gm IVPUSH Q15M PRN; Protocol PRN Reason: per Hypoglycemia Standing Ord. Dorzolamide HCl (Dorzolamide Hcl 2 % Ophth Mona 10 Ml Drpbtl) 1 drop EYE-RIGHT BID [facility] Last Admin: 05/01/22 07:54 Dose: 1 drop Escitalopram Oxalate (Escitalopram Oxalate 20 Mg Tablet) 20 mg PO DAILY [facility] Fluticasone/Vilanterol (Fluticasone/Vilanterol 200/25 Blst.W.Dev) 1 puff INHALE RDAILY [facility] Last Admin: 05/01/22 07:54 Dose: 1 puff Furosemide (Furosemide 40 Mg Tablet) 40 mg PO DAILY@1200 ALAN; Protocol Last Admin: 04/29/22 12:38 Dose: Not Given Furosemide (Furosemide 20 Mg Tablet) 60 mg PO DAILY [facility]; Protocol Last Admin: 04/29/22 10:29 Dose: 60 mg Glucose (Glucose Gel 15 Gm Gel..Gram.) 15 gm PO Q15M PRN; Protocol PRN Reason: per Hypoglycemia Standing Ord. Guaifenesin/Dextromethorphan (Guaifenesin Dm 100/10/5 Ml 5 Ml Syrup) 10 ml PO TID [facility] Last Admin: 05/01/22 14:53 Dose: 10 ml Heparin Sodium (Porcine) (Heparin Sodium,Porcine 5,000 Unit/Ml Vial) 5,000 unit SUBCUT Q8H [facility] Last Admin: 05/01/22 14:53 Dose: 5,000 unit Hydroxychloroquine Sulfate (Hydroxychloroquine Sulfate 200 Mg Tablet) 200 mg PO BID [facility] Last Admin: 04/29/22 10:28 Dose: 200 mg Insulin Glargine (Insulin Glargine,Hum.Rec.Anlog 100 Unit/Ml 10 Ml Vial) 20 unit SUBCUT BEDTIME [facility] Last Admin: 04/30/22 21:16 Dose: 20 unit Insulin Human Lispro (Insulin Lispro 100 Unit/Ml 3 Ml Vial) 0 unit SUBCUT QIDACHS [facility]; Protocol Last Admin: 05/01/22 16:18 Dose: 10 unit Latanoprost (Latanoprost 0.005 % Ophth Mona 2.5 Ml Drops) 1 drop EYE-BOTH BEDTIME [facility] Last Admin: 04/30/22 21:03 Dose: 1 drop Levothyroxine Sodium (Levothyroxine Sodium 175 Mcg Tablet) 175 mcg PO DAILY@ 0600 [facility] Last Admin: 05/01/22 06:24 Dose: 175 mcg Magnesium Oxide (Magnesium Oxide 400 Mg Tablet) 400 mg PO DAILY [facility] Last Admin: 05/01/22 07:49 Dose: 400 mg Metoprolol Tartrate (Metoprolol Tartrate 50 Mg Tablet) 50 mg PO BID [facility]; Protocol Last Admin: 05/01/22 07:49 Dose: 50 mg Multivitamins/Vitamin C (Multivitamin Tablet) 1 tab PO DAILY [facility] Last Admin: 05/01/22 07:49 Dose: 1 tab Non-Formulary Medication (Nirmatrelvir-Ritonavir [Paxlovid (Eua)]) 0 tab PO .COMPLEX [facility] Non-Formulary Medication (Umeclidinium [Incruse Ellipta]) 1 inhalation INHALE DAILY [facility] Nystatin (Nystatin Powder 15 Gm Bottle) 1 appl TOPICAL BID [facility]; Protocol Last Admin: 05/01/22 07:55 Dose: 1 appl Prednisolone Acetate (Prednisolone Acetate 1 % Oph Susp 5 Ml Drpbtl) 1 drop EYE-RIGHT QID [facility] Last Admin: 05/01/22 16:19 Dose: 1 drop Senna (Sennosides 8.6 Mg Tablet) 17.2 mg PO DAILY PRN PRN Reason: Constipation Timolol Maleate (Timolol Maleate 0.5 % Oph Mona 5 Ml Drbtl) 1 drop EYE-RIGHT BID [facility] Home Medications Medication Instructions Recorded Confirmed Last Taken Type aspirin 325 mg tablet 325 mg PO DAILY 10/08/21 04/28/22 Unknown History chlordiazepoxide HCl 10 mg capsule 10 mg PO BEDTIME 10/08/21 04/28/22 Unknown History citalopram 20 mg tablet 40 mg PO DAILY 10/08/21 04/28/22 Unknown History hydroxychloroquine 200 mg tablet 200 mg PO BID 10/08/21 04/28/22 Unknown History insulin lispro protamine-lispro 0 unit subcut TIDAC 10/08/21 04/28/22 Unknown History 100 unit/mL (75-25) subcutaneous pen levothyroxine 175 mcg tablet 175 mcg PO DAILY@0600 10/08/21 04/28/22 Unknown History multivitamin 1 tab PO DAILY 10/08/21 04/28/22 Unknown History simvastatin 20 mg tablet 20 mg PO BEDTIME 10/08/21 04/28/22 Unknown History sitagliptin phosphate 100 mg 100 mg PO DAILY 10/08/21 04/28/22 Unknown History tablet (Januvia) latanoprost 0.005 % eye drops 1 drp ophthalmic (eye) BEDTIME 11/20/21 04/28/22 U nknown History albuterol sulfate 0.63 mg/3 mL 0.63 mg inhalation Q4-6H PRN 02/16/22 04/28/22 Unknown History solution for nebulization Wheezing bisacodyl 10 mg rectal suppository 10 mg CO DAILY PRN Constipation 02/16/22 04/28/22 Unknown History brinzolamide 1 %-brimonidine 0.2 % 1 drp ophthalmic-Right BID 02/16/22 04/28/22 Unknown History eye drops,suspension (Simbrinza) [id number] 1 tab PO QID PRN Pain 02/16/22 04/28/22 Unknown History 50 mg-325 mg-40 mg tablet coenzyme Q10 100 mg capsule 50 mg PO DAILY 02/16/22 04/28/22 Unknown History (CoQ-10) insulin glargine 100 unit/mL (3 20 unit subcut BEDTIME 02/16/22 04/28/22 Unknown History mL) subcutaneous pen (Lantus Solostar U-100 Insulin) magnesium oxide 400 mg PO DAILY 02/16/22 04/28/22 Unknown History melatonin 5 mg tablet 5 mg PO BEDTIME PRN Sleep 02/16/22 04/28/22 Unknown History metoprolol tartrate 50 mg tablet 50 mg PO BID 02/16/22 04/28/22 Unknown History prednisolone acetate 1 % eye 1 drp ophthalmic-Right QID 02/16/22 04/28/22 Unknown History drops,suspension riboflavin (vitamin B2) 400 mg 400 mg PO DAILY 02/16/22 04/28/22 Unknown History tablet sennosides 8.6 mg tablet (senna) 17.2 mg PO DAILY PRN Constipation 02/16/22 04/28/22 Unknown History timolol maleate 0.5 % eye drops 1 drp ophthalmic-Right BID 02/16/22 04/28/22 Unknown History carboxymethylcellulose sodium 1 % 1 drp ophthalmic (eye) BID 03/15/22 04/28/22 Unknown History eye drops (Artificial Tears (carboxymethylcellulose)) acetaminophen 325 mg tablet 650 mg PO Q4H PRN Pain 04/27/22 04/28/22 Unknown History biotin 5 mg capsule 5 mg PO DAILY 04/27/22 04/28/22 Unknown History budesonide-formoterol HFA 160 2 puff inhalation BID 04/27/22 04/28/22 Unknown History mcg-4.5 mcg/actuation aerosol inhaler (Symbicort) diclofenac sodium 1 % topical gel 4 g topical QID 04/27/22 04/28/22 Unknown History furosemide 40 mg tablet 1 tab PO DAILY@1200 04/27/22 04/28/22 Unknown History furosemide 40 mg tablet 60 mg PO DAILY 04/27/22 04/28/22 Unknown History hydroxyzine HCl 25 mg tablet 1 tab PO DAILY 04/27/22 04/28/22 Unknown History prednisone 20 mg tablet See Taper PO DAILY 04/27/22 04/28/22 Unknown History umeclidinium 62.5 mcg/actuation 1 inh inhalation DAILY 04/27/22 04/28/22 Unknown History blister powder for inhalation (Incruse Ellipta) Physical Exam Vital Signs: Vital Signs: Last Vital Signs Temp 96.8 F 05/01/22 19:07 Pulse 76 05/01/22 19:07 Resp 20 05/01/22 19:07 BP 156/55 H 05/01/22 19:07 Pulse Ox 95 05/01/22 19:07 O2 Del Method 05/01/22 19:07 O2 Flow Rate 2 05/01/22 19:07 FiO2 25 04/29/22 10:00 Oxygen Flow Rate 4 04/28/22 14:41 BMI result Body Mass Index 46.9 Const: Other: General awake aler t, in no acute dis tress.? Neck suppl e no JVD. CVS? reg ular rate rhythm, Respiratory lungs diminished breath sounds,no respirat ory distress, no w heeze, no rhonchi. Gastrointestinal abdomen soft, nont [place], bowel sound s audible, no guar ding , no rigidity . Extremities no e zack. Neuro nonfoc al patient moving all 4 extremity sp eech clear. Skin c hronic skin discol oration lower extr emities Psych appr opriate affect Results Laboratory Findings 05/01/22 10:21 05/01/22 10:21 ABG, PT/INR, D-dimer: PT/INR, D-dimer PT 11.2 SEC (10.0-13.1) 04/28/22 16:49 INR 1.0 (0.9-1.1) 04/28/22 16:49 Abnormal lab findings: Abnormal Labs 04/28/22 04/28/22 04/28/22 04:10 16:04 16:49 WBC RBC Hgb Hct MCH MCHC Immature Gran % (Auto) Neut % (Auto) Lymph % (Auto) [place] % (Auto) Lymph # (Auto) Abs Immat Gran (auto) Absolute Neuts (auto) VBG pH VBG HCO3 Potassium 5.2 H Carbon Dioxide 32 H Anion Gap BUN 40 H POC Glucose Random Glucose 358 H* Calcium C-Reactive Protein B-Natriuretic Peptide Albumin 3.3 L Urine Glucose (UA) >=1000 H COVID-19 (DENY) Positive A 04/28/22 04/28/22 04/28/22 16:49 18:00 18:07 WBC 16.7 H RBC Hgb 11.6 L Hct MCH 26.5 L MCHC 30.9 L Immature Gran % (Auto) 1.0 H Neut % (Auto) 91.8 H Lymph % (Auto) 5.0 L [place] % (Auto) 1.4 L Lymph # (Auto) 0.8 L Abs Immat Gran (auto) 0.16 H Absolute Neuts (auto) 15.3 H VBG pH VBG HCO3 40 H Potassium Carbon Dioxide Anion Gap BUN POC Glucose Random Glucose Calcium C-Reactive Protein B-Natriuretic Peptide 340 H Albumin Urine Glucose (UA) COVID-19 (DENY) 04/29/22 04/29/22 04/29/22 01:46 04:44 04:47 WBC 22.0 H RBC Hgb 11.7 L Hct MCH 26.0 L MCHC Immature Gran % (Auto) 0.8 H Neut % (Auto) 88.7 H Lymph % (Auto) 5.5 L [place] % (Auto) Lymph # (Auto) Abs Immat Gran (auto) 0.17 H Absolute Neuts (auto) 19.5 H VBG pH 7.48 H VBG HCO3 37 H Potassium Carbon Dioxide Anion Gap BUN POC Glucose 315 H Random Glucose Calcium C-Reactive Protein B-Natriuretic Peptide Albumin Urine Glucose (UA) COVID-19 (DENY) 01/26/23 01/26/23 01/26/23 04:47 05:53 11:48 WBC RBC Hgb Hct MCH MCHC Immature Gran % (Auto) Neut % (Auto) Lymph % (Auto) [place] % (Auto) Lymph # (Auto) Abs Immat Gran (auto) Absolute Neuts (auto) VBG pH VBG HCO3 Potassium Carbon Dioxide 34 H Anion Gap BUN 39 H POC Glucose 256 H 214 H Random Glucose 289 H Calcium C-Reactive Protein B-Natriuretic Peptide Albumin 3.3 L Urine Glucose (UA) COVID-19 (DENY) 04/29/22 04/29/22 04/30/22 16:47 19:06 07:08 WBC RBC Hgb Hct MCH MCHC Immature Gran % (Auto) Neut % (Auto) Lymph % (Auto) [place] % (Auto) Lymph # (Auto) Abs Immat Gran (auto) Absolute Neuts (auto) VBG pH VBG HCO3 Potassium Carbon Dioxide Anion Gap BUN POC Glucose 244 H 175 H 189 H Random Glucose Calcium C-Reactive Protein B-Natriuretic Peptide Albumin Urine Glucose (UA) COVID-19 (DENY) 04/30/22 04/30/22 04/30/22 10:56 15:15 18:59 WBC RBC Hgb Hct MCH MCHC Immature Gran % (Auto) Neut % (Auto) Lymph % (Auto) [place] % (Auto) Lymph # (Auto) Abs Immat Gran (auto) Absolute Neuts (auto) VBG pH VBG HCO3 Potassium Carbon Dioxide Anion Gap BUN POC Glucose 236 H 251 H 296 H Random Glucose Calcium C-Reactive Protein B-Natriuretic Peptide Albumin Urine Glucose (UA) COVID-19 (DENY) 05/01/22 05/01/22 05/01/22 07:16 10:21 10:21 WBC 13.3 H RBC 4.05 L Hgb 10.5 L Hct 33.8 L MCH 25.9 L MCHC Immature Gran % (Auto) Neut % (Auto) Lymph % (Auto) [place] % (Auto) Lymph # (Auto) Abs Immat Gran (auto) Absolute Neuts (auto) VBG pH VBG HCO3 Potassium Carbon Dioxide 34 H Anion Gap 10 L BUN 29 H POC Glucose 174 H Random Glucose 263 H Calcium 8.1 L C-Reactive Protein 15.15 H B-Natriuretic Peptide Albumin Urine Glucose (UA) COVID-19 (DENY) 05/01/22 05/01/22 05/01/22 11:16 16:10 17:34 WBC RBC Hgb Hct MCH MCHC Immature Gran % (Auto) Neut % (Auto) Lymph % (Auto) [place] % (Auto) Lymph # (Auto) Abs Immat Gran (auto) Absolute Neuts (auto) VBG pH VBG HCO3 Potassium Carbon Dioxide Anion Gap BUN POC Glucose 253 H 415 H* 424 H* Random Glucose Calcium C-Reactive Protein B-Natriuretic Peptide Albumin Urine Glucose (UA) COVID-19 (DENY) 05/01/22 19:50 WBC RBC Hgb Hct MCH MCHC Immature Gran % (Auto) Neut % (Auto) Lymph % (Auto) [place] % (Auto) Lymph # (Auto) Abs Immat Gran (auto) Absolute Neuts (auto) VBG pH VBG HCO3 Potassium Carbon Dioxide Anion Gap BUN POC Glucose 507 H* Random Glucose Calcium C-Reactive Protein B-Natriuretic Peptide Albumin Urine Glucose (UA) COVID-19 (DENY) Microbiology: Microbiology 04/28/22 18:00 Blood - Venous Blood Culture - Preliminary No growth after 48 hours. 04/28/22 16:49 Blood - Venous Blood Culture - Preliminary No growth after 48 hours. Diagnostic Findings Additional studies: [place] [id number] CT Scan Report Signed Patient: Cindy Toney MR#: [id number] : 1950 Acct:[id number] Age/Sex: 72 / F ADM Date: 04/28/22 Loc: .ED Attending Dr: Ordering Physician: Aniket Small MD Date of Service: 04/28/22 Procedure(s): CT chest wo IV con Accession Number(s): [id number] cc: Aniket Small MD~ EXAMINATION: CT CHEST WITHOUT CONTRAST CLINICAL INFORMATION: Covid 19.? COMPARISON: Chest x-ray 04/28/2022? TECHNIQUE: Multidetector volumetric CT imaging of the chest was done. Axial MIP volume rendering provided. Sagittal and coronal reformatted images were obtained.? This CT examination was performed using dose optimization techniques as appropriate, variously including the following: *Automated exposure control *Adjustment of mA and/or kV according to patient size (this includes techniques or standardized protocols for targeted exams where dose is matched to indication/reason for exam; i.e. extremities or head) *Use of iterative reconstruction technique DLP: 626 mGy-cm FINDINGS: SERVICE AGENT: Somewhat expanded lungs with haziness in left lung base. Cardiomegaly. LUNGS: The lungs are somewhat expanded with dependent airspace opacity in the posterior segment of left upper lobe and lingula.. There is right middle lobe infiltrate/atelectasis with collapse. MEDIASTINUM: At size enlarged with dense mitral valve calcification. There are numerous abnormal mediastinal lymph nodes largest measuring 1.5 cm suspect right hilar adenopathy with likely obstructive right middle lobe bronchus. The thoracic aorta is atherosclerotic and calcified. No aneurysm seen.? CORONARY ARTERY CALCIFICATION: There is moderate coronary artery calcifications PLEURA: There are bilateral moderate pleural effusions right greater than left. No calcified pleural plaques seen.? AXILLA: There are small reactive bilateral axillary lymph nodes noted. UPPER ABDOMEN: Visualized liver, spleen, pancreas appears unremarkable. ? OSSEOUS STRUCTURES: No aggressive lytic or sclerotic process seen. There is mild ventral spondylosis with calcification of anterior longitudinal ligament in the mid and lower dorsal spine.? CT/CT chest wo IV con IMPRESSION: Bilateral moderate pleural effusions greater on the right. ? Bilateral dependent infiltrates in both lower lobe and left upper lobe. There is a right middle lobe collapse with a right hilar soft tissue density mass likely obstructing right middle lobe bronchus. ? Abnormal mediastinal and bilateral axillary lymphadenopathy. Question inflammatory or infectious etiology.? ? Fleischner guidelines were followed. Dictated By: Esequiel Gandara MD Signed By: <Electronically signed by Esequiel Gandara MD in OV> 04/28/222102 DD/ 38 TD/TT:? Official Court Interpreter: ANIRUDH Assessment and Plan (1) Pneumonia due to COVID-19 virus: Status: Acute (2) Acute respiratory failure: Qualifiers: Respiratory failure complication: hypoxia Qualified Code(s): J96.01 - Acute respiratory failure with hypoxia Status: Acute (3) Chronic lymphocytic leukemia (CLL), B-cell: Qualifiers: Leukemia Active/Remission status: without remission Qualified Code(s): C91.10 - Chronic lymphocytic leukemia of B-cell type not having achieved remission Status: Acute (4) Pleural effusion: Status: Acute Plan Continue Decadron Add Doxycycline Add CPT with acapella valve No need for bronchoscopy at this time repeat CXR in 48 hours Oxygen to keep pox >90% diuresis as tolerated OOB to chair Time Spent With Patient Time: Total time managing care of this patient today ____ minutes. Procedures Date of Service Date of Service: 05/01/22
[2022-05-01] MEDS: Atorvastatin Calcium 10 MG TABLET PO (21:28)
[2022-05-01] MEDS: Insulin Lispro 100 UNIT/ML 3 ML VIAL 10 UNIT SUBCUT (21:31)
[2022-05-01] MEDS: Insulin Glargine,Hum.rec.anlog 100 UNIT/ML 10 ML VIAL 20 UNIT SUBCUT (21:31)
[2022-05-01] MEDS: Latanoprost 0.005 % Ophth Sol 2.5 ML DROPS 1 DROP EYE-BOTH (21:32)
[2022-05-01] MEDS: Doxycycline Hyclate 100 MG in 0.9 % Sodium Chloride 250 ML 166.67 MG IV (21:48)
[2022-05-02] VITALS (7 sets, daily range): BP systolic 127–160; BP diastolic 59–73; PULSE 55–71; RESP 16–20; TEMP 36.2–36.8; O2SAT 95–100; BMI 47.2
[2022-05-02] MEDS: Levothyroxine Sodium 175 MCG TABLET PO (06:04)
[2022-05-02] MEDS: Heparin Sodium,Porcine 5,000 UNIT/ML VIAL 5000 UNIT SUBCUT ×3 (06:04→21:10)
[2022-05-02] MEDS: Fluticasone/Vilanterol 200/25 BLST.W.DEV 1 PUFF INHALE (07:46)
[2022-05-02 08:48] LABS: Venous Blood Gas Refer to POC result
[2022-05-02 08:53] LABS: VBG Base Excess 13.2 mmol/L; VBG HCO3 37 mmol/L (22-26); VBG pCO2 45 mmHg; VBG pH 7.52 (7.32-7.43); VBG pO2 65 mmHg
[2022-05-02 08:53] LABS: Glucose, Whole Blood 369 mg/dL (60-115)
[2022-05-02 09:18] LABS: Anion Gap 14 (12-20); Blood Urea Nitrogen 31 mg/dL (9-16); Calcium 7.7 mg/dL (8.4-10.2); Carbon Dioxide 26 mmol/L (22-29); Chloride 96 mmol/L (96-108); Creatinine Clr Calc Pharmacy 63.1; Estimated Glomerular Filt Rate 53; Glucose Random 370 mg/dL (60-115); Potassium 3.8 mmol/L (3.3-5.1); Sodium 132 mmol/L (135-145)
[2022-05-02] MEDS: guaiFENesin DM 100/10/5 ML 5 ML SYRUP 10 ML PO ×3 (09:20→21:02)
[2022-05-02] MEDS: Aspirin 325 MG TABLET PO (09:20)
[2022-05-02] MEDS: dexAMETHasone 6 MG TABLET PO (09:20)
[2022-05-02] MEDS: Metoprolol Tartrate 50 MG TABLET PO ×2 (09:20→21:03)
[2022-05-02] MEDS: Magnesium Oxide 400 MG TABLET PO (09:20)
[2022-05-02] MEDS: amLODIPine Besylate 10 MG TABLET PO (09:20)
[2022-05-02] MEDS: Escitalopram Oxalate 20 MG TABLET PO (09:20)
[2022-05-02] MEDS: Insulin Lispro 100 UNIT/ML 3 ML VIAL SUBCUT ×4 (09:21→21:03)
[2022-05-02] MEDS: Multivitamin TABLET 1 TAB PO (09:22)
[2022-05-02] MEDS: Doxycycline Hyclate 100 MG in 0.9 % Sodium Chloride 250 ML 166.67 MG IV ×2 (09:22→21:11)
[2022-05-02] MEDS: Nystatin Powder 15 GM BOTTLE 1 APPL TOPICAL ×2 (09:23→21:04)
[2022-05-02] MEDS: Brimonidine Tartrate 0.2% Oph 5 ML BOTTLE 1 DROP EYE-RIGHT ×2 (09:23→21:05)
[2022-05-02] MEDS: prednisoLONE Acetate 1 % Oph Susp 5 ML DRPBTL 1 DROP EYE-RIGHT ×4 (09:24→21:04)
[2022-05-02] MEDS: Dorzolamide HCl 2 % Ophth Sol 10 ML DRPBTL 1 DROP EYE-RIGHT ×2 (09:24→21:15)
[2022-05-02 09:34] LABS: Acetone, serum QL Negative (Negative)
--- NOTE | 2022-05-02 10:51 | P.PNIM_ITS ---
Subjective Subjective Date of Service: 05/02/22 Interval History: Wheezing more than yesterday. Feels weak. BG up to 507 overnight. Was given extra insulin. No fever. Review of Systems Review of Systems: Yes all other systems are reviewed and are negative Physical Exam Vital Signs: Vital Signs: Last Vital Signs Temp 98.2 F 05/02/22 08:00 Pulse 69 05/02/22 08:00 Resp 20 05/02/22 08:00 BP 140/66 H 05/02/22 08:00 Pulse Ox 98 05/02/22 08:00 O2 Del Method 05/02/22 08:00 O2 Flow Rate 2 05/02/22 08:00 FiO2 25 04/29/22 10:00 Oxygen Flow Rate 4 04/28/22 14:41 BMI result Body Mass Index 47.2 Gen: in no acute distress HEENT: sclera anicteric, moist mucus membranes Neck: supple Lungs: diminished breath sounds, bilateral expiratory wheezing at bases Heart: regular rate and rhythm, no murmurs Abd: soft, non-tender, non-distended, morbid obesity Ext: no edema Skin: warm/well-perfused Neuro: alert and oriented x3, no focal findings Psych: appropriate affect Objective Data Active Medications Acetaminophen (Acetaminophen 325 Mg Tablet) 650 mg PO Q6H PRN PRN Reason: Pain, Moderate (Pain Scale 4-6 Last Admin: 04/30/22 03:20 Dose: 650 mg Documented By: DANE Albuterol Sulfate (Albuterol Sulfate (0.042%) 1.25 Mg/3 Ml Vial.Neb) 0.63 mg INHALE RQ4H PRN PRN Reason: Wheezing Last Admin: 04/30/22 05:05 Dose: 0.63 mg Documented By: KERON Amlodipine Besylate (Amlodipine Besylate 10 Mg Tablet) 10 mg PO DAILY [facility]; Protocol Last Admin: 05/02/22 09:20 Dose: 10 mg Documented By: NIKI Aspirin (Aspirin 325 Mg Tablet) 325 mg PO DAILY [facility] Last Admin: 05/02/22 09:20 Dose: 325 mg Documented By: NIKI Atorvastatin Calcium (Atorvastatin Calcium 10 Mg Tablet) 10 mg PO BEDTIME [facility] Last Admin: 05/01/22 21:28 Dose: 10 mg Documented By: ANTOIC Bisacodyl (Bisacodyl 10 Mg Supp.Rect) 10 mg CO DAILY PRN PRN Reason: Constipation Last Admin: 04/29/22 17:04 Dose: 10 mg Documented By: TRAVIS Brimonidine Tartrate (Brimonidine Tartrate 0.2% Oph 5 Ml Bottle) 1 drop EYE- RIGHT BID [facility] Last Admin: 05/02/22 09:23 Dose: 1 drop Documented By: NIKI Dexamethasone (Dexamethasone 6 Mg Tablet) 6 mg PO DAILY [facility] Stop: 05/10/22 09:01 Last Admin: 05/02/22 09:20 Dose: 6 mg Documented By: NIKI Dextrose (Dextrose 50 % 25 Gm/50 Ml Syringe) 25 gm IVPUSH Q15M PRN; Protocol PRN Reason: per Hypoglycemia Standing Ord. Dorzolamide HCl (Dorzolamide Hcl 2 % Ophth Mona 10 Ml Drpbtl) 1 drop EYE-RIGHT BID [facility] Last Admin: 05/02/22 09:24 Dose: 1 drop Documented By: NIKI Escitalopram Oxalate (Escitalopram Oxalate 20 Mg Tablet) 20 mg PO DAILY [facility] Last Admin: 05/02/22 09:20 Dose: 20 mg Documented By: NIKI Fluticasone/Vilanterol (Fluticasone/Vilanterol 200/25 Blst.W.Dev) 1 puff INHALE RDAILY [facility] Last Admin: 05/02/22 07:46 Dose: 1 puff Documented By: DAVID Furosemide (Furosemide 40 Mg Tablet) 40 mg PO DAILY@1200 [facility]AN; Protocol Last Admin: 04/29/22 12:38 Dose: Not Given Documented By: TRAVIS Non-Admin Reason: on hold Furosemide (Furosemide 20 Mg Tablet) 60 mg PO DAILY [facility]; Protocol Last Admin: 04/29/22 10:29 Dose: 60 mg Documented By: TRAVIS Glucose (Glucose Gel 15 Gm Gel..Gram.) 15 gm PO Q15M PRN; Protocol PRN Reason: per Hypoglycemia Standing Ord. Guaifenesin/Dextromethorphan (Guaifenesin Dm 100/10/5 Ml 5 Ml Syrup) 10 ml PO TID [facility] Last Admin: 05/02/22 09:20 Dose: 10 ml Documented By: NIKI Heparin Sodium (Porcine) (Heparin Sodium,Porcine 5,000 Unit/Ml Vial) 5,000 unit SUBCUT Q8H [facility] Last Admin: 05/02/22 06:04 Dose: 5,000 unit Documented By: SRINIVAS Hydroxychloroquine Sulfate (Hydroxychloroquine Sulfate 200 Mg Tablet) 200 mg PO BID [facility] Last Admin: 04/29/22 10:28 Dose: 200 mg Documented By: TRAVIS Doxycycline Hyclate 100 mg/ (Sodium Chloride) 250 mls @ 166.67 mls/hr IV Q12H [facility] Last Admin: 05/02/22 09:22 Dose: 166.67 mls/hr Documented By: NIKI Insulin Glargine (Insulin Glargine,Hum.Rec.Anlog 100 Unit/Ml 10 Ml Vial) 30 unit SUBCUT BEDTIME [facility] Insulin Human Lispro (Insulin Lispro 100 Unit/Ml 3 Ml Vial) 0 unit SUBCUT QIDACHS [facility]; Protocol Last Admin: 05/02/22 09:21 Dose: 18 unit Documented By: NIKI Latanoprost (Latanoprost 0.005 % Ophth Mona 2.5 Ml Drops) 1 drop EYE-BOTH BEDTIME [facility] Last Admin: 05/01/22 21:32 Dose: 1 drop Documented By: SRINIVAS Levothyroxine Sodium (Levothyroxine Sodium 175 Mcg Tablet) 175 mcg PO DAILY@0600 [facility] Last Admin: 05/02/22 06:04 Dose: 175 mcg Documented By: SRINIVAS Magnesium Oxide (Magnesium Oxide 400 Mg Tablet) 400 mg PO DAILY [facility] Last Admin: 05/02/22 09:20 Dose: 400 mg Documented By: NIKI Metoprolol Tartrate (Metoprolol Tartrate 50 Mg Tablet) 50 mg PO BID [facility]; Protocol Last Admin: 05/02/22 09:20 Dose: 50 mg Documented By: NIKI Multivitamins/Vitamin C (Multivitamin Tablet) 1 tab PO DAILY [facility] Last Admin: 05/02/22 09:22 Dose: 1 tab Documented By: NIKI Non-Formulary Medication (Nirmatrelvir-Ritonavir [Paxlovid (Eua)]) 0 tab PO .COMPLEX [facility] Non-Formulary Medication (Umeclidinium [Incruse Ellipta]) 1 inhalation INHALE DAILY [facility] Nystatin (Nystatin Powder 15 Gm Bottle) 1 appl TOPICAL BID [facility]; Protocol Last Admin: 05/02/22 09:23 Dose: 1 appl Documented By: NIKI Prednisolone Acetate (Prednisolone Acetate 1 % Oph Susp 5 Ml Drpbtl) 1 drop EYE-RIGHT QID [facility] Last Admin: 05/02/22 09:24 Dose: 1 drop Documented By: NIKI Senna (Sennosides 8.6 Mg Tablet) 17.2 mg PO DAILY PRN PRN Reason: Constipation Timolol Maleate (Timolol Maleate 0.5 % Oph Mona 5 Ml Drbtl) 1 drop EYE-RIGHT BID [facility] Last Admin: 05/01/22 21:33 Dose: Not Given Documented By: SRINIVAS Non-Admin Reason: Med Not Available Labs 05/01/22 10:21 05/02/22 08:40 Labs: Laboratory Results - last 24 hr 05/01/22 05/01/22 05/01/22 10:21 11:16 16:10 VBG pH VBG pCO2 VBG pO2 VBG HCO3 VBG O2 Saturation VBG Base Excess Anion Gap Estim Creat Clear Calc Estimated GFR POC Glucose 253 H 415 H* Random Glucose Calcium Procalcitonin 0.19 Acetone, Qual 05/01/22 05/01/22 05/02/22 17:34 19:50 08:40 VBG pH VBG pCO2 VBG pO2 VBG HCO3 VBG O2 Saturation VBG Base Excess Anion Gap 14 Estim Creat Clear Calc 63.1 Estimated GFR 53 POC Glucose 424 H* 507 H* Random Glucose 370 H* Calcium 7.7 L Procalcitonin Acetone, Qual Negative 05/02/22 05/02/22 08:43 08:44 VBG pH 7.52 H VBG pCO2 45 VBG pO2 65 VBG HCO3 37 H VBG O2 Saturation 91.0 VBG Base Excess 13.2 Anion Gap Estim Creat Clear Calc Estimated GFR POC Glucose 369 H* Random Glucose Calcium Procalcitonin Acetone, Qual Assessment and Plan (1) COVID-19: Status: Acute (2) Obesity: Status: Acute (3) Hypoxia: Status: Acute Plan hospital d#5 72-year-old female with chronic hypoxemic respiratory failure due to COPD on 2 L supplemental oxygen, chronic diastolic heart failure, chronic kidney disease, insulin-dependent diabetes mellitus, essential hypertension, hypothyroidism, mood disorder, mixed hyperlipidemia, and CLL being followed by Dr. Ruiz presented to [facility] due to worsening shortness of breath. Diagnosed with COVID-19 04/27 and was receiving Paxlovid at [facility] where she is a long- term resident, but because of increasing dyspnea and hypoxia she was transferred to [place] ED. She was treated with BiPAP and admitted to ICU and quickly improved; subsequently transitioned to 2 L of nasal cannula with no recurrent respiratory distress therefore transferred to telemetry on 04/29. # acute on chronic hypoxemic respiratory failure secondary to COVID-19 infection with no super added bacterial superinfection, no evidence of acute CHF - got 1 dose of Solu-medrol in ED 04/29, giving dexamethasone 6 mg/d 05/01-05/10 # COPD exacerbation - steroids as above, doxycycline 05/01-05/05, continue home inhalers # right middle lobe collapse with a right hilar soft tissue density mass likely obstructing right middle lobe bronchus. - Pulmonology consultation: repeat CXR 05/03, chest PT with Acapella valve # leukocytosis - likely due to IV steroids; received IV vanco and Zosyn and these were discontinued as bacterial infection was thought unlikely # DM2 with steroid-induced hyperglycemia - basal-bolus insulin: increase doses. no evidence for DKA # hypothyroidism - LT4 # mood disorder - citalopram # HTN - metoprolol # chronic HFpEF - metoprolol and furosemide # morbid obesity - comorbid condition # CLL - outpt f/u with Dr Ruiz # VTE ppx: UFH # dispo: anticipate return to SNF possibly next 1d In my clinical judgment, the patient requires continued inpatient hospitalization for the following reasons: respiratory failure- repeat CXR, chest PT Time Spent With Patient Time: Total time managing care of this patient today __35__ minutes. Quality Stroke Does the patient have a stroke diagnosis?: No VTE Prior VTE?: No VTE Risk Level:: Medical - moderate - high VTE Device Contraindication: N/A - Device Ordered VTE Drug Contraindication: N/A - Med Ordered
[2022-05-02 11:17] LABS: Glucose, Whole Blood 388 mg/dL (60-115)
[2022-05-02] MEDS: timoloL maleate 0.5 % Oph Sol 5 ML DRBTL 1 DROP EYE-RIGHT ×2 (14:23→21:05)
[2022-05-02] MEDS: Mineral OiL enema 133 ML ENEMA PR (14:23)
[2022-05-02 16:04] LABS: Glucose, Whole Blood 318 mg/dL (60-115)
[2022-05-02 19:48] LABS: Glucose, Whole Blood 327 mg/dL (60-115)
[2022-05-02] MEDS: Insulin Glargine,Hum.rec.anlog 100 UNIT/ML 10 ML VIAL 30 UNIT SUBCUT (21:03)
[2022-05-02] MEDS: Atorvastatin Calcium 10 MG TABLET PO (21:03)
[2022-05-02] MEDS: Latanoprost 0.005 % Ophth Sol 2.5 ML DROPS 1 DROP EYE-BOTH (21:22)
[2022-05-03 04:00] VITALS: BP 138/65; PULSE 52; RESP 20; TEMP 36; O2SAT 99
[2022-05-03] MEDS: Levothyroxine Sodium 175 MCG TABLET PO (05:13)
[2022-05-03] MEDS: Heparin Sodium,Porcine 5,000 UNIT/ML VIAL 5000 UNIT SUBCUT (05:14)
[2022-05-03 06:00] VITALS: BMI 48.4
[2022-05-03 07:18] VITALS: BP 153/69; PULSE 65; RESP 20; TEMP 36.3; O2SAT 100
[2022-05-03 07:32] LABS: Glucose, Whole Blood 216 mg/dL (60-115)
[2022-05-03] MEDS: Insulin Lispro 100 UNIT/ML 3 ML VIAL SUBCUT ×2 (07:57→11:57)
[2022-05-03] MEDS: Multivitamin TABLET 1 TAB PO (07:58)
[2022-05-03] MEDS: guaiFENesin DM 100/10/5 ML 5 ML SYRUP 10 ML PO (07:58)
[2022-05-03] MEDS: dexAMETHasone 6 MG TABLET PO (07:58)
[2022-05-03] MEDS: Metoprolol Tartrate 50 MG TABLET PO (07:58)
[2022-05-03] MEDS: Magnesium Oxide 400 MG TABLET PO (07:59)
[2022-05-03] MEDS: amLODIPine Besylate 10 MG TABLET PO (07:59)
[2022-05-03] MEDS: timoloL maleate 0.5 % Oph Sol 5 ML DRBTL 1 DROP EYE-RIGHT (08:00)
[2022-05-03] MEDS: Escitalopram Oxalate 20 MG TABLET PO (08:00)
[2022-05-03] MEDS: Aspirin 325 MG TABLET PO (08:00)
[2022-05-03] MEDS: Dorzolamide HCl 2 % Ophth Sol 10 ML DRPBTL 1 DROP EYE-RIGHT (08:01)
[2022-05-03] MEDS: Brimonidine Tartrate 0.2% Oph 5 ML BOTTLE 1 DROP EYE-RIGHT (08:01)
[2022-05-03] MEDS: prednisoLONE Acetate 1 % Oph Susp 5 ML DRPBTL 1 DROP EYE-RIGHT (08:01)
[2022-05-03] MEDS: Nystatin Powder 15 GM BOTTLE 1 APPL TOPICAL (08:02)
[2022-05-03 08:12] LABS: Anion Gap 12 (12-20); Blood Urea Nitrogen 39 mg/dL (9-16); C Reactive Protein 5.24 mg/dL (< or = 0.50); Carbon Dioxide 28 mmol/L (22-29); Chloride 100 mmol/L (96-108); Creatinine Clr Calc Pharmacy 70.2; Estimated Glomerular Filt Rate 59; Glucose Random 231 mg/dL (60-115); Potassium 4.2 mmol/L (3.3-5.1); Sodium 136 mmol/L (135-145)
[2022-05-03 11:24] VITALS: BP 141/61; PULSE 55; RESP 20; TEMP 36.6; O2SAT 97
[2022-05-03 11:35] LABS: Glucose, Whole Blood 379 mg/dL (60-115)
[2022-05-03] MEDS: Doxycycline Hyclate 100 MG in 0.9 % Sodium Chloride 250 ML 166.67 MG IV (11:57)
--- NOTE | 2022-05-03 12:11 | P.DS_ITS ---
DS: Providers Provider Date of Service: 05/03/22 Date of admission: 04/28/22 21:36 Date of discharge: 05/03/22 Primary care physician: Dyllan Roman MD Consults: 05/01/22 08:50 Consult to Pulmonology Routine Consulting Provider: Blaise Julian Reason for consultation: right middle lobe collapse with a right hilar soft tissue density mass DS: Diagnosis Discharge Diagnosis (1) Pneumonia due to COVID-19 virus: Status: Acute (2) COPD exacerbation: Status: Acute (3) Acute respiratory failure with hypoxia: Status: Acute (4) Steroid-induced hyperglycemia: Status: Acute (5) Morbid obesity: Status: Acute DS: Summary Hospital Course Hospital Course: From admission H+P by 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 O2 dependent COPD,CKD, CLL, CHF, DM 2 with insulin dependence, HTN, HLD, hypothyroidism, pleural effusion, pseudotumor cerebri, PVD, past infection with ESBL Klebsiella?who was sent by the senior care where she resides?for evaluation of increasing shortness of breath.? She was seen here at [facility] in the emergency room yesterday and diagnosed with COVID-19 and started on Paxlovid.? The patient was last hospitalized here at [facility] on March 15-2021 for acute on chronic hypoxic respiratory failure secondary to acute exacerbation of COPD in the setting of influenza.?? On arrival to the emergency room the patient was dyspneic but maintaining her oxygen saturation at 92% on 4L (baseline 2L).? Blood pressure was 131/55, heart rate 68, respiratory rate 16, temp 98.0?. Laboratory data significant for WBC 16.7, hematocrit 37.5,?potassium 5.2, CO2 32, BUN 40,?creatinine 1.29, lactic 1.1.? VBG: pH 7.35, pCO2 71, HC03 40, base excess 11.3. Imaging: CXR: Bilateral pleural effusions with interstitial edema.? Similar in appearance to yesterday. Chest CT: Bilateral moderate pleural effusions greater on the right. Bilateral dependent infiltrates in both lower lobe and left upper lobe. There is a right middle lobe collapse with a right hilar soft tissue density mass likely obstructing right middle lobe bronchus. Abnormal mediastinal and bilateral axillary lymphadenopathy. Question inflammatory or infectious etiology.? ED course:? The patient was placed on BiPAP with settings of 12 in 5.? She was given Solu-Medrol 125 mg, Lasix 40 mg, and a DuoNeb.?Attempts to wean her to 10/5 were unsuccessful due to increased work of breathing and low tidal volumes of approximately 150. Admit to ICU for continued BiPAP and observation. 72-year-old female with chronic hypoxemic respiratory failure due to COPD on 2 L supplemental oxygen, chronic diastolic heart failure, chronic kidney disease, insulin-dependent diabetes mellitus, essential hypertension, hypothyroidism, mood disorder, mixed hyperlipidemia, and CLL being followed by Dr. Ruiz presented to [facility] due to worsening shortness of breath.? Diagnosed with COVID-19 04/27 and was receiving Paxlovid at [facility] where she is a long- term resident, but because of increasing dyspnea and hypoxia she was transferred to [place] ED.? She was treated with BiPAP and admitted to ICU and quickly improved; subsequently transitioned to 2 L of nasal cannula with no recurrent respiratory distress therefore transferred to telemetry on 04/29. # acute on chronic hypoxemic respiratory failure secondary to COVID-19 infection - treated with Solu-medrol in ED then dexamethasone 6 mg/d. upon discharge, has 7 more days of dexamethasone remaining - weaned to home dose of 2L oxygen rapidly # COPD exacerbation - steroids as above, doxycycline 05/01-05/05, continue home inhalers # right middle lobe collapse with a right hilar soft tissue density mass likely obstructing right middle lobe bronchus. - Pulmonology consultated. no intervention deemed necessary given resolution of acute hypoxia. to follow-up with her oncologist re: CLL. # leukocytosis - likely due to IV steroids; received IV vanco and Zosyn and these were discontinued as bacterial infection was thought unlikely # DM2 with steroid-induced hyperglycemia - increased insulin doses while on steroids. increase Lantus dose from 20 to 30 units daily while on dexamethasone. She was discharged back to long-term care at [facility]. Time Spent with Patient Time attestation: Total time managing care of this patient today __40__ minutes. Discharge coordination time: Greater than 30 minutes Quality: Safe Use of Opioids Does Pt have an Active Cancer Diagnosis on the Problem List?: No Quality: Stroke Does the patient have a stroke diagnosis?: No Physical Exam Vital Signs: Vital Signs: Last Vital Signs Temp 97.9 F 05/03/22 11:24 Pulse 55 05/03/22 11:24 Resp 20 05/03/22 11:24 BP 141/61 H 05/03/22 11:24 Pulse Ox 97 05/03/22 11:24 O2 Del Method 05/03/22 11:24 O2 Flow Rate 2 05/03/22 11:24 FiO2 25 04/29/22 10:00 Oxygen Flow Rate 4 04/28/22 14:41 BMI result Body Mass Index 48.4 Const: Other: Gen: in no acute distress HEENT: sclera anicteric, moist mucus membranes Neck: supple Lungs: clear throughout Heart: regular rate and rhythm, no murmurs Abd: soft, non-tender, non-distended, morbid obesity Ext: no edema Skin: warm/well-perfused Neuro: alert and oriented x3, no focal findings Psych: appropriate affect ? DS: Data Data Completed and Pending Completed studies during hospitalization [Text1]: Laboratory Results WBC 13.3 X10*3/uL (4.8-10.8) H 05/01/22 10:21 RBC 4.05 X10*6/uL (4.20-5.50) L 05/01/22 10:21 Hgb 10.5 g/dl (12.0-16.0) L 05/01/22 10:21 Hct 33.8 % (37.0-47.0) L 05/01/22 10:21 MCV 83.5 fL (80.0-98.0) 05/01/22 10:21 MCH 25.9 pg (27.0-33.0) L 05/01/22 10:21 MCHC 31.1 g/dl (31.0-35.0) 05/01/22 10:21 RDW 14.1 % (11.0-16.0) 05/01/22 10:21 Plt Count 184 X10*3/uL (160-400) D 05/01/22 10:21 MPV 10.8 fL (9.4-12.3) 05/01/22 10:21 Immature Gran % (Auto) 0.8 % (0.0-0.4) H 04/29/22 04:47 Neut % (Auto) 88.7 % (45-73) H 04/29/22 04:47 Lymph % (Auto) 5.5 % (20-40) L 04/29/22 04:47 Moca % (Auto) 4.8 % (2-11) 04/29/22 04:47 Eos % (Auto) 0.0 % (0-4) 04/29/22 04:47 Baso % (Auto) 0.2 % (0-2) 04/29/22 04:47 Lymph # (Auto) 1.2 X10*3/uL (1.2-4.9) 04/29/22 04:47 Moca # (Auto) 1.1 X10*3/uL (0.1-1.2) 04/29/22 04:47 Eos # (Auto) 0.0 X10*3/uL (0.0-0.4) 04/29/22 04:47 Baso # (Auto) 0.1 X10*3/uL (0.0-0.2) 04/29/22 04:47 Abs Immat Gran (auto) 0.17 X10*3/uL (0.00-0.03) H 04/29/22 04:47 Absolute Neuts (auto) 19.5 x10*3/uL (2.0-8.3) H 04/29/22 04:47 Absolute Nucleated RBC 0.000 X10*3/uL (0.0-0.012) 05/01/22 10:21 Nucleated RBC % (auto) 0.0 /100WBC (0.0-0.2) 05/01/22 10:21 Smear Tech's Comments VERIFIED 04/28/22 18:00 PT 11.2 SEC (10.0-13.1) 04/28/22 16:49 INR 1.0 (0.9-1.1) 04/28/22 16:49 D-Dimer High Sensitivty 459 NG/ML 04/28/22 16:49 VBG pH 7.52 (7.32-7.43) H 05/02/22 08:44 VBG pCO2 45 mmHg 05/02/22 08:44 VBG pO2 65 mmHg 05/02/22 08:44 VBG HCO3 37 mmol/L (22-26) H 05/02/22 08:44 VBG O2 Saturation 91.0 % 05/02/22 08:44 VBG Base Excess 13.2 mmol/L 05/02/22 08:44 Sodium 136 mmol/L (135-145) 05/03/22 07:08 Potassium 4.2 mmol/L (3.3-5.1) 05/03/22 07:08 Chloride 100 mmol/L (96-108) 05/03/22 07:08 Carbon Dioxide 28 mmol/L (22-29) 05/03/22 07:08 Anion Gap 12 (12-20) 05/03/22 07:08 BUN 39 mg/dL (9-16) H 05/03/22 07:08 Creatinine 0.94 mg/dL (0.5-1.4) 05/03/22 07:08 Estim Creat Clear Calc 70.2 05/03/22 07:08 Estimated GFR 59 05/03/22 07:08 POC Glucose 379 mg/dL (60-115) H* 05/03/22 11:24 Random Glucose 231 mg/dL (60-115) H 05/03/22 07:08 Lactic Acid 1.1 mmol/L (0.5-2.0) 04/28/22 18:00 Calcium 8.0 mg/dL (8.4-10.2) L 05/03/22 07:08 Phosphorus 3.2 mg/dL (2.7-4.5) 04/29/22 04:47 Magnesium 2.0 mg/dL (1.6-2.6) 04/29/22 04:47 Total Bilirubin 0.5 mg/dL (0.0-1.0) 04/28/22 16:49 AST 12 U/L (5-31) 04/28/22 16:49 ALT 7 U/L (0-31) 04/28/22 16:49 Alkaline Phosphatase 72 U/L (39-117) 04/28/22 16:49 Troponin I High Sens 9.2 ng/L (<3.5-17.0) 04/28/22 16:49 C-Reactive Protein 5.24 mg/dL (< or = 0.50) H 05/03/22 07:08 B-Natriuretic Peptide 340 pg/mL (<100) H 04/28/22 16:49 Total Protein 7.1 g/dL (6.5-8.0) 04/28/22 16:49 Albumin 3.3 g/dL (3.5-5.0) L 04/29/22 04:47 Procalcitonin 0.19 ng/mL 05/01/22 10:21 Urine Color Yellow 04/28/22 04:10 Urine Appearance Clear 04/28/22 04:10 Urine pH 6.0 (5.0-9.0) 04/28/22 04:10 Ur Specific Omro 1.010 (1.005-1.025) 04/28/22 04:10 Urine Protein Negative mg/dL (Neg-Trace) 04/28/22 04:10 Urine Glucose (UA) >=1000 mg/dL (Negative) H 04/28/22 04:10 Urine Ketones Negative mg/dL (Negative) 04/28/22 04:10 Urine Blood Negative (Negative) 04/28/22 04:10 Urine Nitrite Negative (Negative) 04/28/22 04:10 Ur Leukocyte Esterase Negative (Negative) 04/28/22 04:10 Urine RBC 0-2 /HPF (0-2) 04/28/22 04:10 Urine WBC 0-5 /HPF (0-5) 04/28/22 04:10 Ur Squamous Epith Cells 0-2 /HPF (0-2) 04/28/22 04:10 Urine Bacteria None Seen (None Seen) 04/28/22 04:10 Hyaline Casts 0-2 /LPF (0-2) 04/28/22 04:10 Acetone, Qual Negative (Negative) 05/02/22 08:40 COVID-19 (DENY) Positive (Negative) A 04/28/22 16:04 COVID-19 Clin Com See Note 04/28/22 16:[address] 04/28/22 20:39 IMPRESSION: Bilateral moderate pleural effusions greater on the right. Bilateral dependent infiltrates in both lower lobe and left upper lobe. There is a right middle lobe collapse with a right hilar soft tissue density mass likely obstructing right middle lobe bronchus. Abnormal mediastinal and bilateral axillary lymphadenopathy. Question inflammatory or infectious etiology. Fleischner guidelines were followed. Discharge Plan Discharge Anticipated Discharge Date/Time: 05/03/22 14:04 Patient Disposition: Xfer SNF Discharge Diagnosis: hypoxic respiratory failure due to Covid-19 infection, COPD exacerbation, steroid-induced hyperglycemia Referrals: Maribell Ruiz MD [Physician] - 2 Weeks Dyllan Roman MD [Primary Care Provider] - 1 Week Discharge Medications: New insulin glargine [Lantus U-100 Insulin] 100 unit/mL Solution 30 unit subcut BEDTIME Qty: 10 0RF Rx Instructions: 30 units while on dexamethasone; return to 20 units after done with dexamethasone dexamethasone 6 mg Tablet 6 mg PO DAILY Qty: 7 0RF doxycycline monohydrate 100 mg tablet 100 mg PO BID Qty: 6 0RF Continued levothyroxine 175 mcg tablet 175 mcg PO DAILY@0600 citalopram 20 mg tablet 40 mg PO DAILY simvastatin 20 mg tablet 20 mg PO BEDTIME chlordiazepoxide HCl 10 mg capsule 10 mg PO BEDTIME hydroxychloroquine 200 mg tablet 200 mg PO BID Hold Instructions: Resume on 03/23/22. insulin lispro protamin-lispro 100 unit/mL (75-25) insulin pen 0 unit subcut TIDAC Protocol: Insulin Correction Scale Less than or equal to 110 ---- Give (units): 0 111 to 150 Give (units): 0 151 to 200 Give (units): 2 201 to 250 Give (units): 4 251 to 300 Give (units): 6 301 to 350 Give (units): 8 Greater than 350 Give (units): 10 Call if Blood Glucose > : 350 Januvia 100 mg tablet 100 mg PO DAILY multivitamin Tablet 1 tab PO DAILY aspirin 325 mg Tablet 325 mg PO DAILY amlodipine 10 mg tablet 10 mg PO DAILY Qty: 30 0RF furosemide 40 mg tablet 1 tab PO DAILY@1200 biotin 5 mg Capsule 5 mg PO DAILY hydroxyzine HCl 25 mg tablet 1 tab PO DAILY furosemide 40 mg tablet 60 mg PO DAILY Incruse Ellipta 62.5 mcg/actuation Blister With Device 1 inh INHALATION DAILY acetaminophen 325 mg Tablet 650 mg PO Q4H PRN (Reason: Pain) budesonide-formoterol [Symbicort] 160-4.5 mcg/actuation Hfa Aerosol Inhaler 2 puff INHALATION BID diclofenac sodium 1 % Gel 4 g TOPICAL QID Rx Instructions: apply to single knee, ankle, foot; for foot includes sole/toes/top of foot latanoprost 0.005 % drops 1 drp ophthalmic (eye) BEDTIME nystatin 100,000 unit/gram Powder 1 appl topical BID 7 Days Qty: 30 0RF Protocol: Apply to: Apply to: intertriginous areas albuterol sulfate 0.63 mg/3 mL Solution For Nebulization 0.63 mg INHALATION Q4-6H PRN (Reason: Wheezing) sennosides [senna] 8.6 mg Tablet 17.2 mg PO DAILY PRN (Reason: Constipation) snzghrpgnr-dgpgwslmewhfo-pjtb 50-325-40 mg tablet 1 tab PO QID PRN (Reason: Pain) prednisolone acetate 1 % drops,suspension 1 drp ophthalmic-Right QID bisacodyl 10 mg Suppository 10 mg SC DAILY PRN (Reason: Constipation) metoprolol tartrate 50 mg Tablet 50 mg PO BID timolol maleate 0.5 % drops 1 drp ophthalmic-Right BID coenzyme Q10 [CoQ-10] 100 mg Capsule 50 mg PO DAILY melatonin 5 mg Tablet 5 mg PO BEDTIME PRN (Reason: Sleep) Simbrinza 1-0.2 % drops,suspension 1 drp ophthalmic-Right BID riboflavin (vitamin B2) 400 mg Tablet 400 mg PO DAILY magnesium oxide 400 mg magnesium Tablet 400 mg PO DAILY Artificial Tears (cmc) 1 % Drops 1 drp OPHTHALMIC (EYE) BID ipratropium-albuterol 0.5 mg-3 mg(2.5 mg base)/3 mL Solution For Nebulization 3 ml inhalation RQ4H WHILE AWAKE Qty: 90 0RF Held insulin glargine [Lantus Solostar U-100 Insulin] 100 unit/mL (3 mL) insulin pen 20 unit subcut BEDTIME Hold Instructions: Resume on 05/10/22. Discontinued prednisone 20 mg tablet See Taper PO DAILY Taper: Prednisone 40 mg daily for 2 Days and 0 Hour 35 mg daily for 7 Days and 0 Hour 30 mg daily for 7 Days and 0 Hour 25 mg daily for 7 Days and 0 Hour 20 mg daily for 7 Days and 0 Hour 15 mg daily for 7 Days and 0 Hour 10 mg daily for 7 Days and 0 Hour 5 mg daily for 50 Days and 0 Hour Rx Instructions: STARTED AT 40 MG DROP BY 5 MG EVERY WEEK UNTIL GETTING TO 5MG DAILY Paxlovid (EUA) 150-100 mg tablets,dose pack See Rx Instructions .ROUTE .COMPLEX Qty: 20 0RF Rx Instructions: take ONE 150 mg tablet of nirmatrelvir with ONE 100 mg tablet of ritonavir twice daily for 5 days Discharge Orders: Discharge Order (Routine); Ordered 05/03/22 Ordered By: Jud Talbert Diet: Diabetic diet Activity on Discharge: As tolerated Stand Alone Forms: Patient Portal Discharge page Care Plan Goals: recovery from Covid infection Health Concerns: hypoxic respiratory failure due to Covid-19 infection, COPD exacerbation, steroid-induced hyperglycemia Plan of Treatment: take dexamethasone 6 mg daily for 6 more days take doxycycline 100 mg twice daily for 3 more days increase Lantus to 30 units while on dexamethasone; return to 20 units after completed dexamethasone Please follow up with your primary care doctor within 1 week. Return to the hospital if you experience recurrent or worsening symptoms. Assessment: See Discharge Summary.
--- NOTE | 2022-05-03 12:32 | MHC.CM.PN ---
IMM 05/03/22 Female discharged today. She will return to [facility] via BLS. All discharge info has been sent to [facility]. They are aware of 2pm berry picker @ [facility].
--- NOTE | 2022-05-03 13:48 | PC.NURSE ---
Turner catheter d/c at 11:00, patient voided at 1300
--- NOTE | 2022-05-26 06:54 | P.CDIR_ITS ---
Documented by User: Vianney Lui RN 05/26/22 06:56 Retrospective Query PHYSICIAN'S DOCUMENTATION REQUEST Date of Query: 05/26/22 0655 Patient Name: Cindy Toney Admit Date: 04/28/22 Dear Doctor, A review of the medical record indicates additional documentation may be needed. Please review below and update the documentation accordingly. Clinical Indicators: The following clinical information was noted in the record: Risk Factors/Clinical Indicators/Treatments 04/27/22:BUN 38 Creatinine 1.23 Est. GFR 43 per progress note 04/29/22: CKD Please clarify which of the following accurately represents the patient's renal status: * CKD, please provide stage - see criteria * Other (please specify) * Unable to determine Criteria for LEO* Stages of Chronic Kidney Disease* 1. Increase in serum creatinine by ? 0.3 mg/dL Level Description GFR (?26.5 micromol/L) within 48 hours, or G1 Normal or High > 90 2. Increase in serum creatinine to ?1.5 times baseline, G2 Mildly decreased 60 ? 89 which is known or presumed to have occurred within 7 days, or G3a Mildly to moderately decreased 45 ? 59 3. Urine volume <0.5 mL/kg/hour for six hours G3b Moderately to severely decreased 30 - 44 G4 Severely decreased 15 ? 29 G5 Kidney failure < 15 *Source: Kidney Disease: Improving Global Outcomes (KDIGO) 2012 Use of terms such as suspected, likely, concern for, or probable (associated with a specific diagnosis that is being evaluated, monitored, or treated as if it exists) are acceptable and can be coded in the inpatient setting, when documented at the time of discharge. Thank you, Vianney Lui RN Extension: [phone] Please use your independent medical judgment in providing your response. THIS QUERY IS PART OF THE PERMANENT MEDICAL RECORD Documented by User: Krystal Guillen MD 05/26/22 15:57 Retrospective Query Provider Response: CKD Stage 3
== END 2022-05-03 14:20 | disposition skilled nursing facility (03) | DRG 177 ==
LOC: HO.ED 18:52 → HO.EDOVER 21:42 → HO.ICU 23:34 → HO.IMC 04-29 17:11
PROVIDERS: Hospitalist; Admitting Provider Nurse Practitioner Family; Emergency Provider Emergency Medicine; PCP Family Medicine; Visit Provider Family Medicine
DX: U07.1 COVID-19 (principal); J12.82 Pneumonia due to coronavirus disease 2019; J96.21 Acute and chronic respiratory failure with hypoxia; Z68.42 Body mass index [BMI] 45.0-49.9, adult; C91.10 Chronic lymphocytic leukemia of B-cell type not having achieved remission; J44.0 Chronic obstructive pulmonary disease with (acute) lower respiratory infection; I50.32 Chronic diastolic (congestive) heart failure; J98.19 Other pulmonary collapse; J44.1 Chronic obstructive pulmonary disease with (acute) exacerbation; I13.0 Hypertensive heart and chronic kidney disease with heart failure and stage 1 through stage 4 chronic kidney disease, or unspecified chronic kidney disease; E66.01 Morbid (severe) obesity due to excess calories; E11.65 Type 2 diabetes mellitus with hyperglycemia; G93.2 Benign intracranial hypertension; E03.9 Hypothyroidism, unspecified; E78.5 Hyperlipidemia, unspecified; T38.0X5A Adverse effect of glucocorticoids and synthetic analogues, initial encounter; D72.829 Elevated white blood cell count, unspecified; Z98.2 Presence of cerebrospinal fluid drainage device; N18.30 Chronic kidney disease, stage 3 unspecified; E11.22 Type 2 diabetes mellitus with diabetic chronic kidney disease; Z99.81 Dependence on supplemental oxygen; Z87.891 Personal history of nicotine dependence; Z88.5 Allergy status to narcotic agent; Z88.8 Allergy status to other drugs, medicaments and biological substances; Z79.4 Long term (current) use of insulin; Z79.82 Long term (current) use of aspirin; Z79.890 Hormone replacement therapy; Z79.899 Other long term (current) drug therapy
CPT/HCPCS: 0241U; 36415; 71045; 71046; 71250; 80048; 80053; 80076; 81001; 81003; 82009; 82040; 82565; 82803; 82947; 83605; 83735; 83880; 84100; 84145; 84484; 85025; 85027; 85379; 85610; 86140; 87040; 87635; 93005; 94640; 94660; 96374; 96375; 99285; C1758; J1643; J1940; J2543; J2930; J3370; J8540

== ENCOUNTER 2022-07-30 05:43 | Inpatient (IN) | payer MEDICARE, MEDICAID, SELFPAY ==
[2022-07-30] VITALS (17 sets, daily range): BP systolic 124–156; BP diastolic 48–74; PULSE 83–102; RESP 15–30; TEMP 36.4–36.9; O2SAT 87–100; BMI 56.2
--- NOTE | ~2022-07-30 | CT_ITS ---
EXAMINATION: CT ANGIOGRAM OF THE CHEST WITH AND WITHOUT CONTRAST (CT PULMONARY ANGIOGRAM FOR PE) CLINICAL INFORMATION: Reason for Exam SOB, hypoxia, Positive DVT COMPARISON: None available. TECHNIQUE: Prior to contrast administration, noncontrast localization images were obtained. Subsequently, multidetector volumetric imaging was performed from the thoracic inlet to below the diaphragms following the administration of 80 mL Omnipaque 350 intravenous contrast. No contrast reaction reported Sagittal, coronal, and MIP oblique sagittal reformatted images were obtained on the CT workstation, uploaded to PACS, and reviewed. This CT examination was performed using dose optimization techniques as appropriate, variously including the following: *Automated exposure control *Adjustment of mA and/or kV according to patient size (this includes techniques or standardized protocols for targeted exams where dose is matched to indication/reason for exam; i.e. extremities or head) *Use of iterative reconstruction technique Total exam dose-length product 552 mGy-cm FINDINGS: QUALITY OF STUDY/CONTRAST BOLUS: Satisfactory. PULMONARY ARTERIES: No pulmonary emboli. THORACIC AORTA: No aneurysm. LUNG: There is a left lung base consolidation/atelectasis with small left pleural effusion. The fluid extends all the way to the left apex. PLEURA: There are bilateral small pleural effusions (right with mild right atelectasis and a larger atelectasis/consolidation left lung base. MEDIASTINUM: Normal heart size. No pericardial effusion. No hilar or mediastinal lymphadenopathy. No evidence of septal bowing or right heart strain. CORONARY ARTERY CALCIFICATION: None visualized on this study. CHEST WALL/AXILLA: No axillary or internal mammary lymphadenopathy. OSSEOUS STRUCTURES: There is no compression deformity seen throughout dorsal spine. There is mild ventral spondylosis. No lytic or sclerotic process seen. UPPER ABDOMEN: Unremarkable. No reflux of contrast into the hepatic veins to suggest elevated right heart pressures. CT/CT angio chest PE protocol IMPRESSION: No evidence of PE. No evidence of aortic aneurysm or dissection. Left lower lobe consolidation/atelectasis with underlying left pleural effusion. Small right pleural effusion. VTE: Negative
--- NOTE | ~2022-07-30 | US_ITS ---
EXAMINATION: US VENOUS WITH DOPPLER UPPER EXTREMITY, RIGHT CLINICAL INFORMATION: Edema, swelling, pain COMPARISON: None available. TECHNIQUE: Ultrasound of the upper extremity is performed using compression sonography and color and pulse Doppler flow with assessment of augmentation of flow. There is also imaging and Doppler assessment of the jugular and subclavian veins. Spectral analysis with color-flow imaging is performed. FINDINGS: There is deep venous thrombus in the right brachial vein extending from the proximal to distal upper arm, which in some areas appears occlusive and in others nonocclusive. Respiratory variation, normal compression, and augmented flow are noted throughout the upper extremity including the axillary, and radial and ulnar veins. There is normal flow in the internal jugular and subclavian veins. The basilic and cephalic superficial veins are patent. US/US venous duplex UE RT IMPRESSION: There is deep venous thrombus in the right brachial vein extending from the proximal to distal upper arm, which in some areas appears occlusive and in others nonocclusive. These critical results were discussed with Dr. Atkinson by telephone at 08/05/2022 8:28 PM and it was ascertained that the content and urgency of the report was understood at the time of direct communication.
--- NOTE | ~2022-07-30 | US_ITS ---
EXAMINATION: US CHEST CLINICAL INFORMATION: Large left pleural effusion COMPARISON: Previous chest x-ray 08/02/2022 TECHNIQUE: Procedure and risks and benefits were thoracentesis procedure including bleeding, infection and pneumothorax were discussed with the patient and informed consent was obtained. The patient was positioned in the right decubitus position. Grayscale imaging of the left posterior lateral chest was performed. FINDINGS: There is a very small left pleural effusion. This is too small to safely tap. Thoracentesis not performed. US/US chest IMPRESSION: Small left pleural effusion. Thoracentesis was not performed.
--- NOTE | ~2022-07-30 | XR_ITS ---
EXAMINATION: XR CHEST CLINICAL INFORMATION: Dyspnea COMPARISON: 05/03/2022 TECHNIQUE: Frontal view of the chest was obtained. FINDINGS: Cardiac leads overlie the chest. Low lung volumes. Bibasilar hazy opacities. Small pleural effusions. No pneumothorax. The cardiomediastinal silhouette is unchanged, with a calcified aorta. XR/XR chest 1V IMPRESSION: Small pleural effusions. Hazy basilar opacities could represent atelectasis or pneumonia.
--- NOTE | ~2022-07-30 | XR_ITS ---
EXAMINATION: XR CHEST CLINICAL INFORMATION: CHF COMPARISON: Chest x-ray 07/30/2022 TECHNIQUE: Frontal view of the chest was obtained. FINDINGS: There is persistent complete opacification of left hemithorax likely from pleural effusion, atelectasis. There is small right pleural effusion. Increased vascularity of the right lung is seen likely secondary to redistribution. The mediastinum is shifted to the left. Patient is also rotated to the left. Heart size cannot be evaluated. There is mitral valve calcification. XR/XR chest 1V IMPRESSION: 1. Complete opacification of left hemithorax likely from large pleural effusion and atelectasis. Infiltrate cannot be excluded There is small right pleural effusion. 2. There is increased pulmonary vascularity likely secondary to redistribution. Unremarkable examination.
--- NOTE | 2022-07-30 05:48 | ECG_ITS ---
Test Reason : CHEST PAIN Blood Pressure : / mmHG Vent. Rate : 086 BPM Atrial Rate : 086 BPM P-R Int : 214 ms QRS Dur : 102 ms QT Int : 390 ms P-R-T Axes : 026 086 -12 degrees QTc Int : 466 ms Sinus rhythm with 1st degree A-V block Cannot rule out Anterior infarct , age undetermined Abnormal ECG When compared with ECG of 28-APR-2022 18:21, No significant change was found Referred By: Generic ED Physician Electronically Signed By:Kenji Green
--- NOTE | 2022-07-30 06:30 | ED.GENADULT ---
HPI - General Adult General Chief complaint: Dyspnea Stated complaint: difficulty breathing, on 3L o2 Time Seen by Provider: 07/30/22 06:30 Source: patient, family (patient's niece) and EMS Mode of arrival: EMS Limitations: physical limitation (patient in respiratory distress) History of Present Illness HPI narrative: Patient is a 72 year old assigned female at with a history of CHF, COPD on oxygen at baseline, and CLL presenting to the emergency department today with increased shortness of breath. Patient states that over the last few days she has felt more off and the facility she is at has been trying to give her breathing treatments to help but it hasn't. EMS states that upon arrival on scene, patient was at 77% on her baseline 3LPM of oxygen. Patient denies any dizziness, lightheadedness, abdominal pain, nausea, vomiting, fever, chills, blurry vision, double vision, loss of vision, chest pain, back pain, night sweats, pain with urination, increased urinary frequency, increased urinary urgency, blood in her urine or stool, syncope or a near syncopal episode, recent trauma or falls, bowel incontinence, bladder incontinence, bowel retention, bladder retention, or any other complaints at this time. Patient's niece at the bed side confirmed that the MOLST form is accurate and the patient is a full code. Onset (ago): day(s) (2) Severity scale (1-10): 7 Relieving factors: none Exacerbating factors: none Associated symptoms: shortness of breath Treatments prior to arrival: other (chronic oxygen use and multiple breathing treatments) Related Data Home Medications Medication Instructions Recorded Confirmed aspirin 325 mg tablet 325 mg PO DAILY 10/08/21 06/08/22 chlordiazepoxide HCl 10 mg capsule 10 mg PO BEDTIME 10/08/21 06/08/22 citalopram 20 mg tablet 40 mg PO DAILY 10/08/21 06/08/22 hydroxychloroquine 200 mg tablet 200 mg PO BID 10/08/21 06/08/22 insulin lispro protamine-lispro 0 unit subcut TIDAC 10/08/21 06/08/22 100 unit/mL (75-25) subcutaneous pen levothyroxine 175 mcg tablet 175 mcg PO DAILY@0600 10/08/21 06/08/22 simvastatin 20 mg tablet 20 mg PO BEDTIME 10/08/21 06/08/22 sitagliptin phosphate 100 mg 100 mg PO DAILY 10/08/21 06/08/22 tablet (Januvia) latanoprost 0.005 % eye drops 1 drp ophthalmic (eye) BEDTIME 11/20/21 06/08/22 albuterol sulfate 0.63 mg/3 mL 0.63 mg inhalation Q4-6H PRN 02/16/22 06/08/22 solution for nebulization Wheezing bisacodyl 10 mg rectal suppository 10 mg IA DAILY PRN Constipation 02/16/22 06/08/22 brinzolamide 1 %-brimonidine 0.2 % 1 drp ophthalmic-Right BID 02/16/22 06/08/22 eye drops,suspension (Simbrinza) lomkuaykaw-aupjtwhdnaqet-plsyuved 1 tab PO QID PRN Pain 02/16/22 06/08/22 50 mg-325 mg-40 mg tablet coenzyme Q10 100 mg capsule 50 mg PO DAILY 02/16/22 06/08/22 (CoQ-10) insulin glargine 100 unit/mL (3 20 unit subcut BEDTIME 02/16/22 06/08/22 mL) subcutaneous pen (Lantus Solostar U-100 Insulin) magnesium oxide 400 mg PO DAILY 02/16/22 06/08/22 melatonin 5 mg tablet 5 mg PO BEDTIME PRN Sleep 02/16/22 06/08/22 metoprolol tartrate 50 mg tablet 50 mg PO BID 02/16/22 06/08/22 prednisolone acetate 1 % eye 1 drp ophthalmic-Right QID 02/16/22 06/08/22 drops,suspension riboflavin (vitamin B2) 400 mg 400 mg PO DAILY 02/16/22 06/08/22 tablet sennosides 8.6 mg tablet (senna) 17.2 mg PO DAILY PRN Constipation 02/16/22 06/08/22 timolol maleate 0.5 % eye drops 1 drp ophthalmic-Right BID 02/16/22 06/08/22 carboxymethylcellulose sodium 1 % 1 drp ophthalmic (eye) BID 03/15/22 06/08/22 eye drops (Artificial Tears (carboxymethylcellulose)) biotin 5 mg capsule 5 mg PO DAILY 04/27/22 06/08/22 budesonide-formoterol HFA 160 2 puff inhalation BID 04/27/22 06/08/22 mcg-4.5 mcg/actuation aerosol inhaler (Symbicort) diclofenac sodium 1 % topical gel 4 g topical QID 04/27/22 06/08/22 furosemide 40 mg tablet 1 tab PO DAILY@1200 04/27/22 06/08/22 furosemide 40 mg tablet 60 mg PO DAILY 04/27/22 06/08/22 hydroxyzine HCl 25 mg tablet 1 tab PO DAILY 04/27/22 06/08/22 umeclidinium 62.5 mcg/actuation 1 inh inhalation DAILY 04/27/22 06/08/22 blister powder for inhalation (Incruse Ellipta) acetaminophen 325 mg tablet 650 mg PO Q4H PRN Pain (Scale 06/08/22 06/08/22 (Tylenol) Score 4-6) amlodipine 10 mg tablet 10 mg PO DAILY high blood pressure 06/08/22 06/08/22 guaifenesin 100 mg/5 mL oral liquid 200 mg PO Q4H PRN Cough 06/08/22 06/08/22 guaifenesin 600 mg tablet, 600 mg PO BID cough 06/08/22 06/08/22 extended release 12 hr polyethylene glycol 3350 17 17 g PO DAILY 06/08/22 06/08/22 gram/dose oral powder (Miralax) prednisone 10 mg tablet 10 mg PO DAILY 06/08/22 06/08/22 sodium phosphates 19 gram-7 118 ml IA BEDTIME PRN Constipation 06/08/22 06/08/22 gram/118 mL enema (Fleet Enema) Previous Rx's Medication Instructions Recorded nystatin 100,000 unit/gram topical 1 appl topical BID 7 days #30 grams 12/23/21 powder ipratropium 0.5 mg-albuterol 3 mg 3 ml inhalation RQ4H WHILE AWAKE 03/17/22 (2.5 mg base)/3 mL nebulization #90 mL soln dexamethasone 6 mg tablet 6 mg PO DAILY #7 tabs 05/03/22 doxycycline monohydrate 100 mg 100 mg PO BID #6 tabs 05/03/22 tablet insulin glargine 100 unit/mL 30 unit (0.3 mL) subcut BEDTIME 05/03/22 subcutaneous solution (Lantus #10 mL U-100 Insulin) acalabrutinib maleate 100 mg 100 mg PO Q12H #60 tabs 05/26/22 tablet (Calquence (acalabrutinib maleate)) Allergies Allergy/AdvReac Type Severity Reaction Status Date / Time oxycodone [From Percocet] Allergy Intermediate Rash Verified 04/27/22 11:42 lisinopril Allergy Unknown Unknown Verified 04/27/22 11:42 Review of Systems Constitutional: Constitutional: Reports no additional constitutional complaints, Denies chills, Denies fever(s) and Denies night sweats Eyes: Eyes: Reports no additional eye complaints, Denies blurry vision, Denies change in vision, Denies diplopia, Denies eye discharge, Denies loss of vision and Denies eye pain ENT: Denies dizziness Cardiovascular: Cardiovascular: Reports no additional cardiovascular complaints, Denies chest pain, Denies lightheadedness, Denies Loss of Consciousness and Reports dyspnea Respiratory: Respiratory: Reports excessive phlegm production, Reports dyspnea and Reports wheezing Gastrointestinal: Gastrointestinal: Reports no additional gastrointestinal complaints, Denies abdominal pain, Denies melena, Denies hematochezia, Denies change in bowel habits and Denies change in stool character Genitourinary: Genitourinary: Denies hematuria, Denies urinary frequency, Denies dysuria, Denies urinary incontinence, Denies urinary hesitancy and Denies urinary urgency Musculoskeletal: Musculoskeletal: Reports no additional musculoskeletal complaints, Denies numbness and Denies tingling Neurologic: Denies dizziness, Denies loss of vision, Denies numbness and Denies tingling Psychiatric: Psychiatric: Reports no additional psychiatric complaints Endocrine: Endocrine: Reports no additional endocrine complaints Hematologic/Lymphatic: Hematologic/Lymphatic: Reports no additional hematologic/lymphatic complaints Allergic/Immunologic: Allergic/Immunologic: Reports no additional allergic/immunologic complaints and Reports wheezing PMFSH Past Medical History Attestation statement: The following information was validated with the patient. (all information validated with the patient's niece) Source: old records reviewed, obtained from family (patient's niece), nursing notes reviewed and other (SNF records reviewed) Medical History Acute respiratory failure Chronic lymphocytic leukemia (CLL), B-cell CKD (chronic kidney disease) CLL (chronic lymphocytic leukemia) Congestive heart failure Congestive heart failure COVID COVID-19 Diabetes mellitus with insulin therapy Dyspnea Essential hypertension HLD (hyperlipidemia) HTN (hypertension) Hypothyroidism Hypoxia Infection with ESBL Klebsiella oxytoca Influenza A Klebsiella pneumonia Lower extremity edema Lymphadenopathy, mediastinal Migraine Obesity Pleural effusion Pleural effusion Pneumonia due to COVID-19 virus Pseudotumor cerebri PVD (peripheral vascular disease) Suspected deep tissue injury Surgical History H/O cataract extraction H/O hysterectomy for benign disease Hx of cholecystectomy S/P appendectomy Family History Family History Mother Heart attack, Onset Age: 92 Father Heart attack, Onset Age: 66 Other Diabetes Social History Social History Household Members: Family Household Members Other:: patient came from a rehab facility, been there since dec Housing: House Do you presently have visiting nurse or other home services: No Alcohol intake: never Patient Tobacco Use Status: Former Tobacco user Smoked in Last 30 Days: No Use of substances other than those prescribed or required for medical reasons: No Advance Directives: Yes Advance Directives on File: Yes Advance Directives Date on File: 09/26/20 service: No Current occupational status: disabled Physical Exam ED Vital Signs: Vital Signs - 24 hr 07/30/22 05:51 07/30/22 05:56 07/30/22 07:17 Temperature 97.6 F Pulse Rate 85 86 Respiratory Rate 16 19 19 Blood Pressure 124/51 L 124/51 L Pulse Oximetry 96 96 Oxygen Delivery Method Non-Rebreather Mask Non-Rebreather Mask Oxygen Flow Rate 10 07/30/22 07:18 07/30/22 07:55 07/30/22 12:00 Temperature Pulse Rate 83 83 96 Respiratory Rate 20 16 30 H Blood Pressure 138/55 L 150/62 H Pulse Oximetry 98 98 Oxygen Delivery Method BiPAP Nasal Cannula Oxygen Flow Rate 4 BMI result Body Mass Index 56.2 Const General: cooperative, no acute distress, alert and awake Nutritional Appearance: well nourished Orientation/consciousness: patient oriented x3 Limitations: no limitations HENMT Head: Yes normal to inspection and Yes atraumatic Ears: hearing grossly normal bilaterally and external ears normal General nose exam: Normal external nose present, no nasal discharge noted and no epistaxis Face and sinus: Yes normal facial exam, No abrasion and No laceration Mouth: Normal oral and palatal mucosa present, no drooling and no muffled voice Eyes General: appearance normal, both eyes and all related structures Periorbital: periorbital findings normal Eyelids: Yes eyelids normal Conjunctivae: conjunctivae normal Pupils: Equal, round and reactive pupils present EOM: EOMs intact bilaterally Neck Neck: Yes normal visual inspection, Yes full ROM and Yes no lymphadenopathy Chest Chest palpation & inspection: normal inspection of the chest Resp Effort & Inspection: labored, respiratory distress and tachypneic Auscultation: rales diffuse and wheezes scattered wheezes Cardio Rate: regular rate Rhythm: regular rhythm GI Inspection: Yes normal to inspection Neuro General: patient oriented x3 and moves all extremities Cranial nerves: Yes Equal, round and reactive pupils present Cognition (Neuro): normal cognition Motor exam (neuro): 5/5 motor strength present throughout Sensory Exam: Normal double simultaneous stimulation for sensation Coordination: fyxrlj-ab-oxmg test normal Extrem Other: bilateral lower extremity edema and venous stasis dermatitis General: Yes full ROM and Yes capillary refill normal Psych Appearance: grossly normal Mental Status: mental status grossly normal Affect: normal affect Attitude: cooperative Thought process: Normal thought process present Thought content: Normal thought content present Insight: Good insight present (Psych) Medications Administered Discontinued Medications Generic Name Dose Route Start Last Admin Trade Name Freq PRN Reason Stop Dose Admin Albuterol Sulfate 7.5 mg/ 0 mg 07/30/22 07:10 07/30/22 07:16 Albuterol/Ipratropium 3 ml INHALE 07/30/22 07:11 10 each ONCE ONE Administration Furosemide 80 mg 07/30/22 06:36 07/30/22 07:45 Furosemide 100 Mg/10 Ml Vial IVPUSH 07/30/22 06:37 40 mg ONCE ONE Administration Protocol Ceftriaxone Sodium 2 gm/ 50 mls @ 100 mls/hr 07/30/22 06:58 07/30/22 08:25 Sodium Chloride IV 07/30/22 07:27 100 mls/hr ONCE ONE Administration Methylprednisolone Sodium Succinate 60 mg 07/30/22 06:37 07/30/22 06:44 Methylprednisolone Sod Succ 125 Mg/2 Ml Vial IVPUSH 07/30/22 06:38 60 mg ONCE ONE Administration Medical Decision Making Medical Decision Making MDM Narrative: Patient is a 72 year old assigned female at with a history of COPD, CLL, and hypoxia presenting to the emergency department today with increased shortness of breath / difficulty breathing. Patient's physical exam showed an individual with diffuse rales and wheezes with respiratory distress. Patient's blood work showed an elevated WBC count, BNP of 356, initial trop of 23.6 and repeat trop of 27.1. Patient's EKG was unremarkable. Patient's chest x-ray showed bilateral pleural effusions. Patient was immediately placed on BiPaP which improved her work of breathing but did not improve her VBG values. I spoke to the excavator operator who agreed to admission to the ICU. Patient's clinical presentation is most consistent with a CHF exacerbation. Patient's clinical presentation is not consistent with sepsis or severe sepsis. I explained my physical exam findings as well as all test results to the patient and the patient's niece. I answered all questions asked by the patient and the patient's niece. Patient and the patient's niece verbalized agreement and understanding with this treatment plan and admission. Differential Diagnosis Differential Diagnoses: The differential diagnosis associated with the presentation includes CHF, hypoxia, respiratory distress, chronic lung disease Consult Healthcare Provider Management of the patient was discussed with: Component Design Engineer (spoke to the excavator operator who agreed to admission) Lab Data [facility] Lab Attestation statement: I reviewed the patient's lab results. 07/30/22 06:30 07/30/22 06:30 Labs: Lab Results 07/30/22 07/30/22 07/30/22 Range/Units 06:30 06:30 06:30 WBC 17.2 H (4.8-10.8) X10*3/uL RBC 4.17 L (4.20-5.50) X10*6/uL Hgb 11.1 L (12.0-16.0) g/dl Hct 37.6 (37.0-47.0) % MCV 90.2 (80.0-98.0) fL MCH 26.6 L (27.0-33.0) pg MCHC 29.5 L (31.0-35.0) g/dl RDW 15.9 (11.0-16.0) % Plt Count 146 L (160-400) X10*3/uL MPV 12.7 H (9.4-12.3) fL Immature Gran % (Auto) 0.9 H (0.0-0.4) % Neut % (Auto) 82.4 H (45-73) % Lymph % (Auto) 5.5 L (20-40) % [place] % (Auto) 7.8 (2-11) % Eos % (Auto) 2.8 (0-4) % Baso % (Auto) 0.6 (0-2) % Lymph # (Auto) 0.9 L (1.2-4.9) X10*3/uL [place] # (Auto) 1.4 H (0.1-1.2) X10*3/uL Eos # (Auto) 0.5 H (0.0-0.4) X10*3/uL Baso # (Auto) 0.1 (0.0-0.2) X10*3/uL Abs Immat Gran (auto) 0.16 H (0.00-0.03) X10*3/uL Absolute Neuts (auto) 14.2 H (2.0-8.3) x10*3/uL Absolute Nucleated RBC 0.000 (0.0-0.012) X10*3/uL Nucleated RBC % (auto) 0.0 (0.0-0.2) /100WBC VBG pH (7.32-7.43) VBG pCO2 mmHg VBG pO2 mmHg VBG HCO3 (22-26) mmol/L VBG O2 Saturation % VBG Base Excess mmol/L Sodium (135-145) mmol/L Potassium (3.3-5.1) mmol/L Chloride (96-108) mmol/L Carbon Dioxide (22-29) mmol/L Anion Gap (12-20) BUN (9-16) mg/dL Creatinine (0.5-1.4) mg/dL Estim Creat Clear Calc Estimated GFR Random Glucose (60-115) mg/dL Lactic Acid 1.0 (0.5-2.0) mmol/L Calcium (8.4-10.2) mg/dL Magnesium (1.6-2.6) mg/dL Total Bilirubin (0.0-1.0) mg/dL AST (5-31) U/L ALT (0-31) U/L Alkaline Phosphatase (39-117) U/L Troponin I High Sens 23.6 H D (<3.5-17.0) ng/L B-Natriuretic Peptide (<100) pg/mL Total Protein (6.5-8.0) g/dL Albumin (3.5-5.0) g/dL Respiratory Panel Quintana Adenovirus (Rapid PCR) (Not Detect.) B.pert (TEM-PCR) (Not Detect.) B.parapertussis DNA PCR (Not Detect.) C. pneumoniae DNA (PCR) (Not Detect.) Coronavirus OC43 (PCR) (Not Detect.) Coronavirus HKU1 (PCR) (Not Detect.) Coronavirus 229E (PCR) (Not Detect.) Coronavirus NL63 (PCR) (Not Detect.) Human Metapneumovir PCR (Not Detect.) Influenza A (RT-PCR) (Not Detect.) Influenza B (RT-PCR) (Not Detect.) M. pneumoniae (PCR) (Not Detect.) Parainfluenza 1 (PCR) (Not Detect.) Parainfluenza 2 (PCR) (Not Detect.) Parainfluenza 3 (PCR) (Not Detect.) Parainfluenza 4 (PCR) (Not Detect.) RSV (PCR) (Not Detect.) Entero/Rhino (PCR) (Not Detect.) SARS-CoV-2 RNA (RT-PCR) (Not Detect.) 07/30/22 07/30/22 07/30/22 Range/Units 06:30 07:25 07:48 WBC (4.8-10.8) X10*3/uL RBC (4.20-5.50) X10*6/uL Hgb (12.0-16.0) g/dl Hct (37.0-47.0) % MCV (80.0-98.0) fL MCH (27.0-33.0) pg MCHC (31.0-35.0) g/dl RDW (11.0-16.0) % Plt Count (160-400) X10*3/uL MPV (9.4-12.3) fL Immature Gran % (Auto) (0.0-0.4) % Neut % (Auto) (45-73) % Lymph % (Auto) (20-40) % [place] % (Auto) (2-11) % Eos % (Auto) (0-4) % Baso % (Auto) (0-2) % Lymph # (Auto) (1.2-4.9) X10*3/uL [place] # (Auto) (0.1-1.2) X10*3/uL Eos # (Auto) (0.0-0.4) X10*3/uL Baso # (Auto) (0.0-0.2) X10*3/uL Abs Immat Gran (auto) (0.00-0.03) X10*3/uL Absolute Neuts (auto) (2.0-8.3) x10*3/uL Absolute Nucleated RBC (0.0-0.012) X10*3/uL Nucleated RBC % (auto) (0.0-0.2) /100WBC VBG pH 7.30 L (7.32-7.43) VBG pCO2 67 mmHg VBG pO2 66 mmHg VBG HCO3 34 H (22-26) mmol/L VBG O2 Saturation 93.0 % VBG Base Excess 6.0 mmol/L Sodium 142 (135-145) mmol/L Potassium 4.3 (3.3-5.1) mmol/L Chloride 102 (96-108) mmol/L Carbon Dioxide 33 H (22-29) mmol/L Anion Gap 11 L (12-20) BUN 35 H (9-16) mg/dL Creatinine 0.95 (0.5-1.4) mg/dL Estim Creat Clear Calc 76.3 Estimated GFR 58 Random Glucose 198 H (60-115) mg/dL Lactic Acid (0.5-2.0) mmol/L Calcium 8.7 (8.4-10.2) mg/dL Magnesium 2.2 (1.6-2.6) mg/dL Total Bilirubin 0.5 (0.0-1.0) mg/dL AST 16 (5-31) U/L ALT 21 (0-31) U/L Alkaline Phosphatase 61 (39-117) U/L Troponin I High Sens (<3.5-17.0) ng/L B-Natriuretic Peptide 356 H (<100) pg/mL Total Protein 5.9 L (6.5-8.0) g/dL Albumin 3.4 L (3.5-5.0) g/dL Respiratory Panel Quintana Adenovirus (Rapid PCR) (Not Detect.) B.pert (TEM-PCR) (Not Detect.) B.parapertussis DNA PCR (Not Detect.) C. pneumoniae DNA (PCR) (Not Detect.) Coronavirus OC43 (PCR) (Not Detect.) Coronavirus HKU1 (PCR) (Not Detect.) Coronavirus 229E (PCR) (Not Detect.) Coronavirus NL63 (PCR) (Not Detect.) Human Metapneumovir PCR (Not Detect.) Influenza A (RT-PCR) (Not Detect.) Influenza B (RT-PCR) (Not Detect.) M. pneumoniae (PCR) (Not Detect.) Parainfluenza 1 (PCR) (Not Detect.) Parainfluenza 2 (PCR) (Not Detect.) Parainfluenza 3 (PCR) (Not Detect.) Parainfluenza 4 (PCR) (Not Detect.) RSV (PCR) (Not Detect.) Entero/Rhino (PCR) (Not Detect.) SARS-CoV-2 RNA (RT-PCR) (Not Detect.) 07/30/22 07/30/22 07/30/22 Range/Units 09:40 11:41 11:42 WBC (4.8-10.8) X10*3/uL RBC (4.20-5.50) X10*6/uL Hgb (12.0-16.0) g/dl Hct (37.0-47.0) % MCV (80.0-98.0) fL MCH (27.0-33.0) pg MCHC (31.0-35.0) g/dl RDW (11.0-16.0) % Plt Count (160-400) X10*3/uL MPV (9.4-12.3) fL Immature Gran % (Auto) (0.0-0.4) % Neut % (Auto) (45-73) % Lymph % (Auto) (20-40) % [place] % (Auto) (2-11) % Eos % (Auto) (0-4) % Baso % (Auto) (0-2) % Lymph # (Auto) (1.2-4.9) X10*3/uL [place] # (Auto) (0.1-1.2) X10*3/uL Eos # (Auto) (0.0-0.4) X10*3/uL Baso # (Auto) (0.0-0.2) X10*3/uL Abs Immat Gran (auto) (0.00-0.03) X10*3/uL Absolute Neuts (auto) (2.0-8.3) x10*3/uL Absolute Nucleated RBC (0.0-0.012) X10*3/uL Nucleated RBC % (auto) (0.0-0.2) /100WBC VBG pH 7.29 L (7.32-7.43) VBG pCO2 71 mmHg VBG pO2 40 mmHg VBG HCO3 34 H (22-26) mmol/L VBG O2 Saturation 63.0 % VBG Base Excess 5.5 mmol/L Sodium (135-145) mmol/L Potassium (3.3-5.1) mmol/L Chloride (96-108) mmol/L Carbon Dioxide (22-29) mmol/L Anion Gap (12-20) BUN (9-16) mg/dL Creatinine (0.5-1.4) mg/dL Estim Creat Clear Calc Estimated GFR Random Glucose (60-115) mg/dL Lactic Acid (0.5-2.0) mmol/L Calcium (8.4-10.2) mg/dL Magnesium (1.6-2.6) mg/dL Total Bilirubin (0.0-1.0) mg/dL AST (5-31) U/L ALT (0-31) U/L Alkaline Phosphatase (39-117) U/L Troponin I High Sens 27.1 H (<3.5-17.0) ng/L B-Natriuretic Peptide (<100) pg/mL Total Protein (6.5-8.0) g/dL Albumin (3.5-5.0) g/dL Respiratory Panel Quintana See Note Adenovirus (Rapid PCR) Not Detected (Not Detect.) B.pert (TEM-PCR) Not Detected (Not Detect.) B.parapertussis DNA PCR Not Detected (Not Detect.) C. pneumoniae DNA (PCR) Not Detected (Not Detect.) Coronavirus OC43 (PCR) Not Detected (Not Detect.) Coronavirus HKU1 (PCR) Not Detected (Not Detect.) Coronavirus 229E (PCR) Not Detected (Not Detect.) Coronavirus NL63 (PCR) Not Detected (Not Detect.) Human Metapneumovir PCR Not Detected (Not Detect.) Influenza A (RT-PCR) Not Detected (Not Detect.) Influenza B (RT-PCR) Not Detected (Not Detect.) M. pneumoniae (PCR) Not Detected (Not Detect.) Parainfluenza 1 (PCR) Not Detected (Not Detect.) Parainfluenza 2 (PCR) Not Detected (Not Detect.) Parainfluenza 3 (PCR) Not Detected (Not Detect.) Parainfluenza 4 (PCR) Not Detected (Not Detect.) RSV (PCR) Not Detected (Not Detect.) Entero/Rhino (PCR) Not Detected (Not Detect.) SARS-CoV-2 RNA (RT-PCR) Not Detected (Not Detect.) Independent Interpretation I performed an independent interpretation of an: EKG Interpretation: Vent. Rate: 086 BPM ? ? Atrial Rate: 086 BPM P-R Int: 214 ms? QRS Dur: 102 ms QT Int: 390 ms ? ? ? P-R-T Axes: 026 086 -12 degrees QTc Int: 466 ms ? Sinus rhythm with 1st degree A-V block Cannot rule out Anterior infarct , age undetermined Abnormal ECG When compared with ECG of 28-APR-2022 18:21, No significant change was found DD/ 0555 Radiology Impression Radiologist Impression: My interpretation is in agreement with the radiologist's impression of this imaging study. EXAMINATION: XR CHEST CLINICAL INFORMATION: Dyspnea COMPARISON: 05/03/2022 TECHNIQUE: Frontal view of the chest was obtained. FINDINGS: Cardiac leads overlie the chest. Low lung volumes. Bibasilar hazy opacities. Small pleural effusions. No pneumothorax. The cardiomediastinal silhouette is unchanged, with a calcified aorta. XR/XR chest 1V IMPRESSION: Small pleural effusions. Hazy basilar opacities could represent atelectasis or pneumonia. ? Dictated By: Jossue Moffett MD Signed By: Electronically signed by Jossue Moffett MD 07/30/22 0656 Independent Historian Clinical information obtained from an independent historian. History obtained from or confirmed by: EMS and Other (patient's niece) Critical Care Time Critical Care Time Critical Care Time: Yes Total Critical Care Time: 45 Attestation: I spent 45 minutes of Critical Care Time with this patient. This does not include time spent on separately reported billable procedures. Discharge Plan Discharge Clinical Impression: CHF exacerbation, Acute respiratory distress Patient Disposition: Admitted As Inpatient
--- NOTE | 2022-07-30 06:32 | PC.NURSE ---
Pt presented to ER with dyspnea. Pt coming from [address] [place] [address]. Pt has history of CHF, chronic respiratory failure with hypoxia. Per EMS, pt was found at 78% on 3 LPM at facility. Pt was given treatments prior to EMS arrival. EMS placed pt on 15 LPM via NRB until pt got to 100% then titrated down to 10 LPM with O2 sats in the high 90's. Pt is still having trouble breathing but VSS. Pt is A&Ox4, GCS 15, with cool, dry skin. IV's were attempted and obtained in the left AC. Blood is being drawn and sent to lab.Pt waiting to be seen.
[2022-07-30] MEDS: methylPREDNISolone Sod Succ 125 MG/2 ML VIAL 60 MG IVPUSH (06:44)
[2022-07-30 07:00] LABS: MANUAL DIFF FLAG NO
[2022-07-30 07:02] LABS: Basophils Absolute Auto 0.1 X10*3/uL (0.0-0.2); Basophils Percent Auto 0.6 % (0-2); Eosinophils Absolute Auto 0.5 X10*3/uL (0.0-0.4); Eosinophils Percent Auto 2.8 % (0-4); Hematocrit 37.6 % (37.0-47.0); Hemoglobin 11.1 g/dl (12.0-16.0); Imm Gran Abs Auto 0.16 X10*3/uL (0.00-0.03); Imm Gran Pct Auto 0.9 % (0.0-0.4); Lymphocytes Absolute Auto 0.9 X10*3/uL (1.2-4.9); Lymphocytes Percent Auto 5.5 % (20-40); Mean Corpuscular HGB Conc 29.5 g/dl (31.0-35.0); Mean Corpuscular Hemoglobin 26.6 pg (27.0-33.0); Mean Corpuscular Volume 90.2 fL (80.0-98.0); Mean Platelet Volume 12.7 fL (9.4-12.3); Monocytes Absolute Auto 1.4 X10*3/uL (0.1-1.2); Monocytes Percent Auto 7.8 % (2-11); Neutrophils Absolute Auto 14.2 x10*3/uL (2.0-8.3); Neutrophils Percent Auto 82.4 % (45-73); Platelet Count 146 X10*3/uL (160-400); Red Blood Count 4.17 X10*6/uL (4.20-5.50); Red Cell Distribution Width 15.9 % (11.0-16.0); White Blood Count 17.2 X10*3/uL (4.8-10.8)
[2022-07-30] MEDS: Furosemide 100 MG/10 ML VIAL 80 MG IVPUSH (07:45)
[2022-07-30 07:54] LABS: VBG HCO3 34 mmol/L (22-26); VBG pCO2 67 mmHg; VBG pO2 66 mmHg
[2022-07-30 07:55] LABS: Venous Blood Gas Refer to POC result
[2022-07-30 07:58] LABS: Troponin-I High Sensitivity 23.6 ng/L (<3.5-17.0)
[2022-07-30 08:17] LABS: B Type Natriuretic Peptide 356 pg/mL (<100)
[2022-07-30 08:21] LABS: Alanine Aminotransferase 21 U/L (0-31); Albumin Level 3.4 g/dL (3.5-5.0); Alkaline Phosphatase 61 U/L (39-117); Anion Gap 11 (12-20); Aspartate Amino Transferase 16 U/L (5-31); Bilirubin Total 0.5 mg/dL (0.0-1.0); Blood Urea Nitrogen 35 mg/dL (9-16); Calcium 8.7 mg/dL (8.4-10.2); Carbon Dioxide 33 mmol/L (22-29); Chloride 102 mmol/L (96-108); Creatinine Clr Calc Pharmacy 76.3; Estimated Glomerular Filt Rate 58; Glucose Random 198 mg/dL (60-115); Magnesium 2.2 mg/dL (1.6-2.6); Potassium 4.3 mmol/L (3.3-5.1); Sodium 142 mmol/L (135-145); Total Protein 5.9 g/dL (6.5-8.0)
[2022-07-30] MEDS: cefTRIAXone sodium 2 GM in 0.9 % Sodium Chloride 50 ML IV (08:25)
[2022-07-30 10:28] LABS: Troponin-I High Sensitivity 27.1 ng/L (<3.5-17.0)
[2022-07-30 11:49] LABS: VBG Base Excess 5.5 mmol/L; VBG HCO3 34 mmol/L (22-26); VBG pCO2 71 mmHg; VBG pH 7.29 (7.32-7.43); VBG pO2 40 mmHg
[2022-07-30 11:51] LABS: Venous Blood Gas Refer to POC result
[2022-07-30] MEDS: Albumin Human 25 % 100 ML IV ×2 (13:00→19:59)
[2022-07-30] MEDS: Heparin Sodium,Porcine 5,000 UNIT/ML VIAL 5000 UNIT SUBCUT ×2 (13:00→20:06)
[2022-07-30 13:01] LABS: Adenovirus PCR Not Detected (Not Detect.); Bordetella parapertussis PCR Not Detected (Not Detect.); Bordetella pertussis PCR Not Detected (Not Detect.); Chlamydia pneumoniae PCR Not Detected (Not Detect.); Coronavirus 229E PCR Not Detected (Not Detect.); Coronavirus HKU1 PCR Not Detected (Not Detect.); Coronavirus NL63 PCR Not Detected (Not Detect.); Coronavirus OC43 PCR Not Detected (Not Detect.); Human metapneumovirus PCR Not Detected (Not Detect.); Influenza A PCR Not Detected (Not Detect.); Influenza B PCR Not Detected (Not Detect.); Mycoplasma pneumoniae PCR Not Detected (Not Detect.); Parainfluenza 1 PCR Not Detected (Not Detect.); Parainfluenza 2 PCR Not Detected (Not Detect.); Parainfluenza 3 PCR Not Detected (Not Detect.); Rhino/Enterovirus PCR Not Detected (Not Detect.); SARS-CoV-2 PCR Not Detected (Not Detect.)
[2022-07-30 13:02] LABS: Parainfluenza 4 PCR Not Detected (Not Detect.); RSV PCR Not Detected (Not Detect.)
--- NOTE | 2022-07-30 14:22 | PC.NURSE ---
Pt cleaned and changed, linen changed. Abrasions to anus noted.
[2022-07-30] MEDS: Furosemide 200 MG in 0.9 % Sodium Chloride 80 ML IVCONT (15:17)
--- NOTE | 2022-07-30 15:29 | P.HPCC_ITS ---
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 On ER evaluation patient not to be hypoxic and hypercapnic requiring BiPAP. She was started on diuretic and admitted to the intensive care unit. Review of Systems Review of Systems: Yes Unobtainable due to mental condition and Unobtainable due to mental status [facility] Past Medical History Medical History (Updated 07/30/22 @ 15:39 by Bin Jurado MD) Acute respiratory failure Chronic lymphocytic leukemia (CLL), B-cell CKD (chronic kidney disease) CLL (chronic lymphocytic leukemia) Congestive heart failure Congestive heart failure COVID COVID-19 Diabetes mellitus with insulin therapy Dyspnea Essential hypertension HLD (hyperlipidemia) HTN (hypertension) Hypothyroidism Hypoxia Infection with ESBL Klebsiella oxytoca Influenza A Klebsiella pneumonia Lower extremity edema Lymphadenopathy, mediastinal Migraine Obesity Pleural effusion Pleural effusion Pneumonia due to COVID-19 virus Pseudotumor cerebri PVD (peripheral vascular disease) Suspected deep tissue injury Family History Family History Mother Heart attack, Onset Age: 92 Father Heart attack, Onset Age: 66 Other Diabetes Surgical History Surgical History H/O cataract extraction H/O hysterectomy for benign disease Hx of cholecystectomy S/P appendectomy Social History Social History Household Members: Family Household Members Other:: patient came from a rehab facility, been there since dec Housing: House Do you presently have visiting nurse or other home services: No Alcohol intake: never Patient Tobacco Use Status: Former Tobacco user Smoked in Last 30 Days: No Use of substances other than those prescribed or required for medical reasons: No Advance Directives: Yes Advance Directives on File: Yes Advance Directives Date on File: 09/26/20 service: No Current occupational status: disabled Meds Allergies Allergy/AdvReac Type Severity Reaction Status Date / Time oxycodone [From Percocet] Allergy Intermediate Rash Verified 04/27/22 11:42 lisinopril Allergy Unknown Unknown Verified 04/27/22 11:42 Active Medications: Current Medications Acetazolamide (Acetazolamide Sodium 500 Mg Vial) 375 mg IVPUSH BID [facility] Stop: 08/02/22 09:01 Heparin Sodium (Porcine) (Heparin Sodium,Porcine 5,000 Unit/Ml Vial) 5,000 unit SUBCUT Q8H [facility] Last Admin: 07/30/22 13:00 Dose: 5,000 unit Furosemide 200 mg/ Sodium (Chloride) 100 mls @ 5 mls/hr IVCONT .Q20H [facility] Last Admin: 07/30/22 15:17 Dose: 10 mg/hr, 5 mls/hr Albumin Human (Kedbumin 25 %) 100 mls @ 100 mls/hr IV Q6H [facility] Stop: 07/31/22 07:44 Last Infusion: 07/30/22 15:10 Dose: Infused Insulin Human Lispro (Insulin Lispro 100 Unit/Ml 3 Ml Vial) 0 unit SUBCUT QIDACHS [facility]; Protocol Levothyroxine Sodium (Levothyroxine Sodium 175 Mcg Tablet) 175 mcg PO DAILY@0600 [facility] Nystatin (Nystatin Powder 15 Gm Bottle) 1 appl TOPICAL TID ALAN; Protocol Home Medications Medication Instructions Recorded Confirmed Last Taken Type chlordiazepoxide HCl 10 mg capsule 10 mg PO BEDTIME 10/08/21 07/30/22 Unknown History citalopram 20 mg tablet 40 mg PO DAILY 10/08/21 07/30/22 Unknown History insulin lispro protamine-lispro 0 unit subcut TIDAC 10/08/21 07/30/22 Unknown History 100 unit/mL (75-25) subcutaneous pen levothyroxine 175 mcg tablet 175 mcg PO DAILY@0600 10/08/21 07/30/22 Unknown History simvastatin 20 mg tablet 20 mg PO BEDTIME 10/08/21 07/30/22 Unknown History sitagliptin phosphate 100 mg 100 mg PO DAILY 10/08/21 07/30/22 Unknown History tablet (Januvia) latanoprost 0.005 % eye drops 1 drp ophthalmic (eye) BEDTIME 11/20/21 07/30/22 Unknown History albuterol sulfate 0.63 mg/3 mL 0.63 mg inhalation Q4-6H PRN 02/16/22 07/30/22 Unknown History solution for nebulization Wheezing brinzolamide 1 %-brimonidine 0.2 % 1 drp ophthalmic-Right BID 02/16/22 07/30/22 Unknown History eye drops,suspension (Simbrinza) pntoprqwli-rbswbocnmkbps-xwkyfsql 1 tab PO QID PRN Pain 02/16/22 07/30/22 Unknown History 50 mg-325 mg-40 mg tablet coenzyme Q10 100 mg capsule 50 mg PO DAILY 02/16/22 07/30/22 Unknown History (CoQ-10) insulin glargine 100 unit/mL (3 20 unit subcut BID 02/16/22 07/30/22 Unknown History mL) subcutaneous pen (Lantus Solostar U-100 Insulin) melatonin 5 mg tablet 5 mg PO BEDTIME PRN Sleep 02/16/22 07/30/22 Unknown History metoprolol tartrate 50 mg tablet 50 mg PO BID 02/16/22 07/30/22 Unknown History prednisolone acetate 1 % eye 1 drp ophthalmic-Right QID 02/16/22 07/30/22 Unknown History drops,suspension sennosides 8.6 mg tablet (senna) 17.2 mg PO DAILY PRN Constipation 02/16/22 07/30/22 Unknown History timolol maleate 0.5 % eye drops 1 drp ophthalmic-Right BID 02/16/22 07/30/22 Unknown History carboxymethylcellulose sodium 1 % 1 drp ophthalmic (eye) BID 03/15/22 07/30/22 Unknown History eye drops (Artificial Tears (carboxymethylcellulose)) budesonide-formoterol HFA 160 2 puff inhalation BID 04/27/22 07/30/22 Unknown History mcg-4.5 mcg/actuation aerosol inhaler (Symbicort) diclofenac sodium 1 % topical gel 4 g topical QID 04/27/22 07/30/22 Unknown History furosemide 40 mg tablet 60 mg PO DAILY 04/27/22 07/30/22 Unknown History umeclidinium 62.5 mcg/actuation 1 inh inhalation DAILY 04/27/22 07/30/22 Unknown History blister powder for inhalation (Incruse Ellipta) acetaminophen 325 mg tablet 650 mg PO Q4H PRN Pain (Scale 06/08/22 07/30/22 Unknown History (Tylenol) Score 4-6) amlodipine 10 mg tablet 10 mg PO DAILY high blood pressure 06/08/22 07/30/22 Unknown History guaifenesin 600 mg tablet, 600 mg PO BID cough 06/08/22 07/30/22 Unknown History extended release 12 hr polyethylene glycol 3350 17 17 g PO DAILY 06/08/22 07/30/22 Unknown History gram/dose oral powder (Miralax) prednisone 10 mg tablet 8 mg PO DAILY 06/08/22 07/30/22 Unknown History sodium phosphates 19 gram-7 118 ml OH BEDTIME PRN Constipation 06/08/22 07/30/22 Unknown History gram/118 mL enema (Fleet Enema) levalbuterol HCl 1.25 mg/3 mL 1.25 mg inhalation QID 07/30/22 07/30/22 Unknown History solution for nebulization Physical Exam Vital Signs: Vital Signs: Last Vital Signs Temp 97.6 F 07/30/22 05:56 Pulse 98 07/30/22 15:13 Resp 24 H 07/30/22 15:13 BP 143/64 H 07/30/22 15:13 Pulse Ox 98 07/30/22 15:13 O2 Del Method Nasal Cannula 07/30/22 15:13 O2 Flow Rate 4 07/30/22 15:13 Oxygen Flow Rate 10 07/30/22 05:51 BMI result Body Mass Index 56.2 Const: General: no acute distress and lethargic ( Arousable) Nutritional Appearance: obese and Edematous Orientation/consciousness: lethargic ( Arousable) Eyes: Sclerae: sclerae normal EOM: EOMs intact bilaterally Neck: Neck: Yes no lymphadenopathy, Yes trachea midline and Yes supple Resp: Effort & Inspection: normal respiratory effort ( on BiPAP) and no respiratory distress Auscultation: crackles ( bilateral) Cardio: Rate: regular rate Rhythm: regular rhythm Heart sounds: no gallops, no murmurs and no rubs GI: Palpation (GI): Soft to palpation and Other GI palpation findings present ( Nontender) Auscultation: normal bowel sounds Extrem: General: No clubbing, No cyanosis and Yes edema (3+ bilateral) Results Labs 07/30/22 06:30 07/30/22 06:30 Labs: Laboratory Results - last 24 hr 07/30/22 07/30/22 07/30/22 06:30 06:30 06:30 MCV 90.2 MCH 26.6 L MCHC 29.5 L RDW 15.9 Plt Count 146 L MPV 12.7 H Immature Gran % (Auto) 0.9 H Neut % (Auto) 82.4 H Lymph % (Auto) 5.5 L Barron % (Auto) 7.8 Eos % (Auto) 2.8 Baso % (Auto) 0.6 Lymph # (Auto) 0.9 L Barron # (Auto) 1.4 H Eos # (Auto) 0.5 H Baso # (Auto) 0.1 Abs Immat Gran (auto) 0.16 H Absolute Neuts (auto) 14.2 H Absolute Nucleated RBC 0.000 Nucleated RBC % (auto) 0.0 VBG pH VBG pCO2 VBG pO2 VBG HCO3 VBG O2 Saturation VBG Base Excess Anion Gap Estim Creat Clear Calc Estimated GFR Random Glucose Lactic Acid 1.0 Calcium Magnesium Total Bilirubin AST ALT Alkaline Phosphatase Troponin I High Sens 23.6 H D B-Natriuretic Peptide Total Protein Albumin Respiratory Panel Quintana Adenovirus (Rapid PCR) B.pert (TEM-PCR) B.parapertussis DNA PCR C. pneumoniae DNA (PCR) Coronavirus OC43 (PCR) Coronavirus HKU1 (PCR) Coronavirus 229E (PCR) Coronavirus NL63 (PCR) Human Metapneumovir PCR Influenza A (RT-PCR) Influenza B (RT-PCR) M. pneumoniae (PCR) Parainfluenza 1 (PCR) Parainfluenza 2 (PCR) Parainfluenza 3 (PCR) Parainfluenza 4 (PCR) RSV (PCR) Entero/Rhino (PCR) SARS-CoV-2 RNA (RT-PCR) 07/30/22 07/30/22 07/30/22 06:30 07:25 07:48 MCV MCH MCHC RDW Plt Count MPV Immature Gran % (Auto) Neut % (Auto) Lymph % (Auto) Barron % (Auto) Eos % (Auto) Baso % (Auto) Lymph # (Auto) Barron # (Auto) Eos # (Auto) Baso # (Auto) Abs Immat Gran (auto) Absolute Neuts (auto) Absolute Nucleated RBC Nucleated RBC % (auto) VBG pH 7.30 L VBG pCO2 67 VBG pO2 66 VBG HCO3 34 H VBG O2 Saturation 93.0 VBG Base Excess 6.0 Anion Gap 11 L Estim Creat Clear Calc 76.3 Estimated GFR 58 Random Glucose 198 H Lactic Acid Calcium 8.7 Magnesium 2.2 Total Bilirubin 0.5 AST 16 ALT 21 Alkaline Phosphatase 61 Troponin I High Sens B-Natriuretic Peptide 356 H Total Protein 5.9 L Albumin 3.4 L Respiratory Panel Quintana Adenovirus (Rapid PCR) B.pert (TEM-PCR) B.parapertussis DNA PCR C. pneumoniae DNA (PCR) Coronavirus OC43 (PCR) Coronavirus HKU1 (PCR) Coronavirus 229E (PCR) Coronavirus NL63 (PCR) Human Metapneumovir PCR Influenza A (RT-PCR) Influenza B (RT-PCR) M. pneumoniae (PCR) Parainfluenza 1 (PCR) Parainfluenza 2 (PCR) Parainfluenza 3 (PCR) Parainfluenza 4 (PCR) RSV (PCR) Entero/Rhino (PCR) SARS-CoV-2 RNA (RT-PCR) 07/30/22 07/30/22 07/30/22 09:40 11:41 11:42 MCV MCH MCHC RDW Plt Count MPV Immature Gran % (Auto) Neut % (Auto) Lymph % (Auto) Barron % (Auto) Eos % (Auto) Baso % (Auto) Lymph # (Auto) Barron # (Auto) Eos # (Auto) Baso # (Auto) Abs Immat Gran (auto) Absolute Neuts (auto) Absolute Nucleated RBC Nucleated RBC % (auto) VBG pH 7.29 L VBG pCO2 71 VBG pO2 40 VBG HCO3 34 H VBG O2 Saturation 63.0 VBG Base Excess 5.5 Anion Gap Estim Creat Clear Calc Estimated GFR Random Glucose Lactic Acid Calcium Magnesium Total Bilirubin AST ALT Alkaline Phosphatase Troponin I High Sens 27.1 H B-Natriuretic Peptide Total Protein Albumin Respiratory Panel Quintana See Note Adenovirus (Rapid PCR) Not Detected B.pert (TEM-PCR) Not Detected B.parapertussis DNA PCR Not Detected C. pneumoniae DNA (PCR) Not Detected Coronavirus OC43 (PCR) Not Detected Coronavirus HKU1 (PCR) Not Detected Coronavirus 229E (PCR) Not Detected Coronavirus NL63 (PCR) Not Detected Human Metapneumovir PCR Not Detected Influenza A (RT-PCR) Not Detected Influenza B (RT-PCR) Not Detected M. pneumoniae (PCR) Not Detected Parainfluenza 1 (PCR) Not Detected Parainfluenza 2 (PCR) Not Detected Parainfluenza 3 (PCR) Not Detected Parainfluenza 4 (PCR) Not Detected RSV (PCR) Not Detected Entero/Rhino (PCR) Not Detected SARS-CoV-2 RNA (RT-PCR) Not Detected Imaging Radiologist's Impressions: Impressions Chest X-Ray 07/30/22 06:48 IMPRESSION: Small pleural effusions. Hazy basilar opacities could represent atelectasis or pneumonia. Assessment and Plan (1) Acute on chronic respiratory failure with hypoxia and hypercapnia: Status: Acute (2) CHF exacerbation: Status: Acute (3) Morbid obesity: Status: Acute (4) Diabetes mellitus with insulin therapy: Status: Acute Plan Assessment: 72-year-old lady with underlying obesity, heart failure, LATONYA admitted with acute on chronic hypoxic hypercapnic respiratory failure secondary to exacerbation of underlying chronic diastolic congestive heart failure Plan: Neuro: No acute issues. Cardiac: acute on chronic diastolic congestive heart failure. Continue with diuresis. Pulmonary: Acute on chronic hypoxic and hypercapnic respiratory failure secondary to exacerbation of underlying congestive heart failure initially requiring BiPAP support. Now titrated to nasal cannula. Maintain O2 sats of 88-92%. Renal: No acute issues. Endo: No acute issues. Underlying diabetes mellitus. GI: No acute issues. ID: No acute issues Heme/Onc: No acute issues. Psych: No acute issues. Miscellaneous: No acute issues. Prophylaxis: Heparin Diet: diabetic Critical care time spent: 45 minutes Time Spent With Patient Time: Total time managing care of this patient today ____ minutes.
[2022-07-30 16:07] LABS: Glucose, Whole Blood 317 mg/dL (60-115)
[2022-07-30] MEDS: Albuterol/Iprat 2.5/0.5MG 3 ML AMPUL.NEB INHALE ×2 (16:56→19:49)
[2022-07-30 17:18] LABS: Appearance Urine Clear; Color Urine Yellow; Glucose Urine UA 250 mg/dL (Negative); Leukocyte Esterase Urine Negative (Negative); Nitrite Urine Negative (Negative); Urine Blood Negative (Negative); Urine Ketones Trace mg/dL (Negative); Urine Protein Trace mg/dL (Neg-Trace)
[2022-07-30] MEDS: Insulin Lispro 100 UNIT/ML 3 ML VIAL SUBCUT ×2 (17:25→20:34)
[2022-07-30 18:39] LABS: VBG Base Excess 1.4 mmol/L; VBG HCO3 23 mmol/L (22-26); VBG pCO2 29 mmHg; VBG pO2 99 mmHg
--- NOTE | 2022-07-30 18:42 | PC.NURSE ---
PATIENT REPORT GIVEN BY ED RN. PATIENT BROUGHT TO UNIT BY RNA DN TRANSPORTER. WARM HAND OFF PREFORMED. PATIENT TRANSITIONED TO BED BY MULTIPLE STAFF MEMBERS AND SECURED SAFELY PER PROTOCOL. PATIENT ADMISSION ASSESSMENT COMPLETED. PATIENT A&o X4, ABLE TO ANSWER ALL ASSESSMENT QUESTIONS APPROPRIATELY. PATIENT ORIENTED TO ROOM, CALL MEJIA WITHIN REACH, VITAL SIGNS MONITORED, ROTATED Q2HR.
[2022-07-30 19:30] LABS: Anion Gap 23 (12-20); Blood Urea Nitrogen 43 mg/dL (9-16); Calcium 8.5 mg/dL (8.4-10.2); Carbon Dioxide 21 mmol/L (22-29); Chloride 101 mmol/L (96-108); Creatinine Clr Calc Pharmacy 63.6; Estimated Glomerular Filt Rate 47; Glucose Random 369 mg/dL (60-115); Potassium 4.9 mmol/L (3.3-5.1); Sodium 140 mmol/L (135-145)
[2022-07-30] MEDS: Nystatin Powder 15 GM BOTTLE 1 APPL TOPICAL (20:06)
[2022-07-30 20:27] LABS: Glucose, Whole Blood 406 mg/dL (60-115)
[2022-07-30] MEDS: acetaZOLAMIDE sodium 500 MG VIAL 375 MG IVPUSH (20:34)
[2022-07-30] MEDS: Insulin Lispro 100 UNIT/ML 3 ML VIAL 10 UNIT SUBCUT (20:42)
[2022-07-30 21:26] LABS: Venous Blood Gas Refer to POC result
[2022-07-31] VITALS (22 sets, daily range): BP systolic 124–180; BP diastolic 30–77; PULSE 77–108; RESP 13–33; TEMP 36.1–37; O2SAT 89–100; BMI 54.3
[2022-07-31] MEDS: Albumin Human 25 % 100 ML IV ×2 (00:58→05:49)
[2022-07-31] MEDS: Heparin Sodium,Porcine 5,000 UNIT/ML VIAL 5000 UNIT SUBCUT ×3 (04:24→21:14)
[2022-07-31 05:37] LABS: VBG Base Excess 10.6 mmol/L; VBG HCO3 36 mmol/L (22-26); VBG pCO2 54 mmHg; VBG pH 7.43 (7.32-7.43); VBG pO2 50 mmHg
[2022-07-31 05:38] LABS: Venous Blood Gas Refer to POC result
[2022-07-31] MEDS: Levothyroxine Sodium 175 MCG TABLET PO (05:47)
[2022-07-31 06:16] LABS: Alanine Aminotransferase 24 U/L (0-31); Albumin Level 4.1 g/dL (3.5-5.0); Alkaline Phosphatase 66 U/L (39-117); Anion Gap 16 (12-20); Aspartate Amino Transferase 20 U/L (5-31); Bilirubin Total 0.6 mg/dL (0.0-1.0); Blood Urea Nitrogen 42 mg/dL (9-16); Calcium 8.8 mg/dL (8.4-10.2); Carbon Dioxide 31 mmol/L (22-29); Chloride 99 mmol/L (96-108); Creatinine Clr Calc Pharmacy 68.2; Estimated Glomerular Filt Rate 52; Glucose Random 268 mg/dL (60-115); Potassium 3.8 mmol/L (3.3-5.1); Sodium 142 mmol/L (135-145); Total Protein 6.3 g/dL (6.5-8.0)
[2022-07-31] MEDS: Furosemide 200 MG in 0.9 % Sodium Chloride 80 ML IVCONT ×2 (06:33→17:21)
[2022-07-31 07:25] LABS: Glucose, Whole Blood 263 mg/dL (60-115)
[2022-07-31 07:28] LABS: Basophils Absolute Auto 0.1 X10*3/uL (0.0-0.2); Basophils Percent Auto 0.6 % (0-2); Eosinophils Percent Auto 0.1 % (0-4); Hemoglobin 9.2 g/dl (12.0-16.0); Imm Gran Pct Auto 0.7 % (0.0-0.4); Lymphocytes Absolute Auto 0.8 X10*3/uL (1.2-4.9); Lymphocytes Percent Auto 6.1 % (20-40); MANUAL DIFF FLAG SCAN; Mean Corpuscular HGB Conc 30.7 g/dl (31.0-35.0); Mean Corpuscular Hemoglobin 26.8 pg (27.0-33.0); Mean Corpuscular Volume 87.5 fL (80.0-98.0); Monocytes Absolute Auto 1.3 X10*3/uL (0.1-1.2); Monocytes Percent Auto 9.7 % (2-11); Neutrophils Absolute Auto 11.4 x10*3/uL (2.0-8.3); Neutrophils Percent Auto 82.8 % (45-73); PLT CLUMP 1; Red Blood Count 3.43 X10*6/uL (4.20-5.50); Red Cell Distribution Width 15.5 % (11.0-16.0); SCAN SMEAR FLAG 1; White Blood Count 13.7 X10*3/uL (4.8-10.8)
[2022-07-31 07:52] LABS: Platelet Count 133 X10*3/uL (160-400); SLIDE REVIEW VERIFIED
[2022-07-31] MEDS: Albuterol/Iprat 2.5/0.5MG 3 ML AMPUL.NEB INHALE ×3 (08:31→19:34)
--- NOTE | 2022-07-31 08:54 | MHC.CM.PN ---
IMM DELIVERED PT IS STR/LTC PATIENT AT [facility] (HAS BEEN THERE SINCE NOVEMBER 2021) PER PT AND NIECE, PLAN TO RETURN THERE AFTER HOSPITAL STAY. RETURN REFERRAL SENT. PT ON 3L 02 AT BASELINE. PER NIECE, USES W/C BUT IS MOSTLY BED CONFINED. +HCP ON FILE (NISOF[facility]A BILL) + CAROLYN JASSOXXSER[facility] PC DR. DAMON AT [facility] DP: RETURN TO [facility] VS LTC. WILL NEED BLS TRANSPORT. CM WILL CONTINUE TO FOLLOW.
[2022-07-31] MEDS: Nystatin Powder 15 GM BOTTLE 1 APPL TOPICAL ×3 (08:55→21:31)
[2022-07-31] MEDS: Insulin Lispro 100 UNIT/ML 3 ML VIAL SUBCUT ×4 (08:55→21:15)
[2022-07-31] MEDS: acetaZOLAMIDE sodium 500 MG VIAL 375 MG IVPUSH ×2 (08:57→21:14)
[2022-07-31 12:08] LABS: Glucose, Whole Blood 225 mg/dL (60-115)
--- NOTE | 2022-07-31 12:10 | PM.CCPN ---
Subjective Subjective Date of Service: 07/31/22 Interval History: 72-year-old lady with underlying obesity, obstructive sleep diastolic dysfunction, COPD to 3 with multiple admissions for acute on chronic respiratory failure 07/30/2022 for complains of slowly worsening dyspnea over several days. On ER evaluation patient not to be hypoxic and hypercapnic requiring BiPAP. She was started on diuretic and admitted to the intensive care unit. Overnight patient diuresed 2.5 L with improvement in oxygenation and ventilation and titration off BiPAP. Critical Care Time (minutes): 0 Physical Exam Vital Signs: Vital Signs: Last Vital Signs Temp 97.2 F 07/31/22 12:00 Pulse 94 07/31/22 12:00 Resp 20 07/31/22 12:00 BP 147/67 H 07/31/22 12:00 Pulse Ox 99 07/31/22 12:00 O2 Del Method Nasal Cannula 07/31/22 12:00 O2 Flow Rate 2 07/31/22 12:00 FiO2 28 07/31/22 04:00 Oxygen Flow Rate 10 07/30/22 05:51 BMI result Body Mass Index 54.3 Const: General: no acute distress, alert and awake Nutritional Appearance: obese and Edematous Eyes: Sclerae: sclerae normal EOM: EOMs intact bilaterally Neck: Neck: Yes no lymphadenopathy, Yes trachea midline and Yes supple Resp: Effort & Inspection: normal respiratory effort and no respiratory distress Auscultation: crackles (Diffuse bilateral) Cardio: Rate: regular rate Rhythm: regular rhythm Heart sounds: no gallops, no murmurs and no rubs GI: Palpation (GI): Soft to palpation and Other GI palpation findings present ( Nontender) Auscultation: normal bowel sounds Extrem: General: No clubbing, No cyanosis and Yes edema ( 2+ bilateral) Objective Data Labs 07/31/22 07:00 07/31/22 05:28 Labs: Laboratory Results - last 24 hr 07/30/22 07/30/22 07/30/22 11:41 16:03 16:35 WBC RBC Hgb Hct MCV MCH MCHC RDW Plt Count MPV Immature Gran % (Auto) Neut % (Auto) Lymph % (Auto) [place] % (Auto) Eos % (Auto) Baso % (Auto) Lymph # (Auto) [place] # (Auto) Eos # (Auto) Baso # (Auto) Abs Immat Gran (auto) Absolute Neuts (auto) Absolute Nucleated RBC Nucleated RBC % (auto) Smear Tech's Comments VBG pH VBG pCO2 VBG pO2 VBG HCO3 VBG O2 Saturation VBG Base Excess Sodium Potassium Chloride Carbon Dioxide Anion Gap BUN Creatinine Estim Creat Clear Calc Estimated GFR POC Glucose 317 H Random Glucose Calcium Phosphorus Magnesium Total Bilirubin AST ALT Alkaline Phosphatase Total Protein Albumin Urine Color Yellow Urine Appearance Clear Urine pH 5.0 Ur Specific [place] 1.010 Urine Protein Trace Urine Glucose (UA) 250 H Urine Ketones Trace Urine Blood Negative Urine Nitrite Negative Ur Leukocyte Esterase Negative Respiratory Panel Quintana See Note Adenovirus (Rapid PCR) Not Detected B.pert (TEM-PCR) Not Detected B.parapertussis DNA PCR Not Detected C. pneumoniae DNA (PCR) Not Detected Coronavirus OC43 (PCR) Not Detected Coronavirus HKU1 (PCR) Not Detected Coronavirus 229E (PCR) Not Detected Coronavirus NL63 (PCR) Not Detected Human Metapneumovir PCR Not Detected Influenza A (RT-PCR) Not Detected Influenza B (RT-PCR) Not Detected M. pneumoniae (PCR) Not Detected Parainfluenza 1 (PCR) Not Detected Parainfluenza 2 (PCR) Not Detected Parainfluenza 3 (PCR) Not Detected Parainfluenza 4 (PCR) Not Detected RSV (PCR) Not Detected Entero/Rhino (PCR) Not Detected SARS-CoV-2 RNA (RT-PCR) Not Detected 07/30/22 07/30/22 07/30/22 18:30 18:32 20:17 WBC RBC Hgb Hct MCV MCH MCHC RDW Plt Count MPV Immature Gran % (Auto) Neut % (Auto) Lymph % (Auto) [place] % (Auto) Eos % (Auto) Baso % (Auto) Lymph # (Auto) [place] # (Auto) Eos # (Auto) Baso # (Auto) Abs Immat Gran (auto) Absolute Neuts (auto) Absolute Nucleated RBC Nucleated RBC % (auto) Smear Tech's Comments VBG pH 7.50 H VBG pCO2 29 VBG pO2 99 VBG HCO3 23 VBG O2 Saturation 100.0 VBG Base Excess 1.4 Sodium 140 Potassium 4.9 Chloride 101 Carbon Dioxide 21 L Anion Gap 23 H BUN 43 H Creatinine 1.14 Estim Creat Clear Calc 63.6 Estimated GFR 47 POC Glucose 406 H* Random Glucose 369 H* Calcium 8.5 Phosphorus Magnesium Total Bilirubin AST ALT Alkaline Phosphatase Total Protein Albumin Urine Color Urine Appearance Urine pH Ur Specific [place] Urine Protein Urine Glucose (UA) Urine Ketones Urine Blood Urine Nitrite Ur Leukocyte Esterase Respiratory Panel Quint[place] Adenovirus (Rapid PCR) B.pert (TEM-PCR) B.parapertussis DNA PCR C. pneumoniae DNA (PCR) Coronavirus OC43 (PCR) Coronavirus HKU1 (PCR) Coronavirus 229E (PCR) Coronavirus NL63 (PCR) Human Metapneumovir PCR Influenza A (RT-PCR) Influenza B (RT-PCR) M. pneumoniae (PCR) Parainfluenza 1 (PCR) Parainfluenza 2 (PCR) Parainfluenza 3 (PCR) Parainfluenza 4 (PCR) RSV (PCR) Entero/Rhino (PCR) SARS-CoV-2 RNA (RT-PCR) 07/31/22 07/31/22 07/31/22 05:28 05:29 07:00 WBC 13.7 H RBC 3.43 L Hgb 9.2 L Hct 30.0 L D MCV 87.5 MCH 26.8 L MCHC 30.7 L RDW 15.5 Plt Count 133 L MPV Not Reportable Immature Gran % (Auto) 0.7 H Neut % (Auto) 82.8 H Lymph % (Auto) 6.1 L [place] % (Auto) 9.7 Eos % (Auto) 0.1 Baso % (Auto) 0.6 Lymph # (Auto) 0.8 L [place] # (Auto) 1.3 H Eos # (Auto) 0.0 Baso # (Auto) 0.1 Abs Immat Gran (auto) 0.10 H Absolute Neuts (auto) 11.4 H Absolute Nucleated RBC 0.000 Nucleated RBC % (auto) 0.0 Smear Tech's Comments VERIFIED VBG pH 7.43 VBG pCO2 54 VBG pO2 50 VBG HCO3 36 H VBG O2 Saturation 82.0 VBG Base Excess 10.6 Sodium 142 Potassium 3.8 D Chloride 99 Carbon Dioxide 31 H Anion Gap 16 BUN 42 H Creatinine 1.04 Estim Creat Clear Calc 68.2 Estimated GFR 52 POC Glucose Random Glucose 268 H Calcium 8.8 Phosphorus 4.0 Magnesium 2.0 Total Bilirubin 0.6 AST 20 ALT 24 Alkaline Phosphatase 66 Total Protein 6.3 L Albumin 4.1 Urine Color Urine Appearance Urine pH Ur Specific [place] Urine Protein Urine Glucose (UA) Urine Ketones Urine Blood Urine Nitrite Ur Leukocyte Esterase Respiratory Panel [place] Adenovirus (Rapid PCR) B.pert (TEM-PCR) B.parapertussis DNA PCR C. pneumoniae DNA (PCR) Coronavirus OC43 (PCR) Coronavirus HKU1 (PCR) Coronavirus 229E (PCR) Coronavirus NL63 (PCR) Human Metapneumovir PCR Influenza A (RT-PCR) Influenza B (RT-PCR) M. pneumoniae (PCR) Parainfluenza 1 (PCR) Parainfluenza 2 (PCR) Parainfluenza 3 (PCR) Parainfluenza 4 (PCR) RSV (PCR) Entero/Rhino (PCR) SARS-CoV-2 RNA (RT-PCR) 07/31/22 07/31/22 07:20 12:04 WBC RBC Hgb Hct MCV MCH MCHC RDW Plt Count MPV Immature Gran % (Auto) Neut % (Auto) Lymph % (Auto) [place] % (Auto) Eos % (Auto) Baso % (Auto) Lymph # (Auto) [place] # (Auto) Eos # (Auto) Baso # (Auto) Abs Immat Gran (auto) Absolute Neuts (auto) Absolute Nucleated RBC Nucleated RBC % (auto) Smear Tech's Comments VBG pH VBG pCO2 VBG pO2 VBG HCO3 VBG O2 Saturation VBG Base Excess Sodium Potassium Chloride Carbon Dioxide Anion Gap BUN Creatinine Estim Creat Clear Calc Estimated GFR POC Glucose 263 H 225 H Random Glucose Calcium Phosphorus Magnesium Total Bilirubin AST ALT Alkaline Phosphatase Total Protein Albumin Urine Color Urine Appearance Urine pH Ur Specific [place] Urine Protein Urine Glucose (UA) Urine Ketones Urine Blood Urine Nitrite Ur Leukocyte Esterase Respiratory Panel [place] Adenovirus (Rapid PCR) B.pert (TEM-PCR) B.parapertussis DNA PCR C. pneumoniae DNA (PCR) Coronavirus OC43 (PCR) Coronavirus HKU1 (PCR) Coronavirus 229E (PCR) Coronavirus NL63 (PCR) Human Metapneumovir PCR Influenza A (RT-PCR) Influenza B (RT-PCR) M. pneumoniae (PCR) Parainfluenza 1 (PCR) Parainfluenza 2 (PCR) Parainfluenza 3 (PCR) Parainfluenza 4 (PCR) RSV (PCR) Entero/Rhino (PCR) SARS-CoV-2 RNA (RT-PCR) Microbiology Microbiology Results: Microbiology 07/30/22 07:25 Blood - Venous Blood Culture - Preliminary No growth after 24 hours. 07/30/22 06:30 Blood - Venous Blood Culture - Preliminary No growth after 24 hours. Progress Note: A&P Assessment and plan (1) Acute on chronic respiratory failure with hypoxia and hypercapnia: Status: Acute (2) CHF exacerbation: Status: Acute (3) Diabetes mellitus with insulin therapy: Status: Acute (4) Morbid obesity: Status: Acute (5) Hypothyroidism: Status: Acute Plan Assessment: 72-year-old lady with underlying obesity, heart failure, LATONYA admitted with acute on chronic hypoxic hypercapnic respiratory failure secondary to exacerbation of underlying chronic diastolic congestive heart failure Plan: Neuro:? No acute issues. Cardiac: ? Acute on chronic diastolic congestive heart failure. Improving with diuresis. Pulmonary: ? Acute on chronic hypoxic and hypercapnic respiratory failure secondary to exacerbation of underlying congestive heart failure initially requiring BiPAP support.? Now titrated to nasal cannula.? Maintain O2 sats of 88-92%. Renal:? No acute issues.? Endo:? No acute issues.? ? Underlying diabetes mellitus and hypothyroidism. GI:? No acute issues. ID:? No acute issues Heme/Onc:? No acute issues. Psych:? No acute issues. Miscellaneous:? No acute issues. Prophylaxis: ? Heparin Diet: diabetic Quality Stroke Does the patient have a stroke diagnosis?: No VTE Prior VTE?: No VTE Risk Level:: Medical - moderate - high VTE Device Contraindication: Treatment Not Indicated VTE Drug Contraindication: N/A - Med Ordered
[2022-07-31] MEDS: Potassium Chloride Packet 20 MEQ PACKET 40 MEQ PO (12:40)
[2022-07-31 16:19] LABS: Glucose, Whole Blood 202 mg/dL (60-115)
[2022-07-31 18:58] LABS: Anion Gap 17 (12-20); Blood Urea Nitrogen 40 mg/dL (9-16); Calcium 8.9 mg/dL (8.4-10.2); Carbon Dioxide 31 mmol/L (22-29); Chloride 100 mmol/L (96-108); Creatinine Clr Calc Pharmacy 68.2; Estimated Glomerular Filt Rate 52; Glucose Random 300 mg/dL (60-115); Potassium 3.6 mmol/L (3.3-5.1); Sodium 144 mmol/L (135-145)
[2022-07-31 19:45] LABS: Glucose, Whole Blood 270 mg/dL (60-115)
[2022-07-31] MEDS: timoloL maleate 0.5 % Oph Sol 5 ML DRBTL 1 DROP EYE-RIGHT (21:31)
[2022-07-31] MEDS: prednisoLONE Acetate 1 % Oph Susp 5 ML DRPBTL 1 DROP EYE-RIGHT (21:31)
[2022-07-31] MEDS: Latanoprost 0.005 % Ophth Sol 2.5 ML DROPS 1 DROP EYE-BOTH (21:31)
[2022-08-01] VITALS (14 sets, daily range): BP systolic 138–154; BP diastolic 62–81; PULSE 78–102; RESP 14–26; TEMP 35.7–37; O2SAT 86–98; BMI 53.1
[2022-08-01] MEDS: Albuterol/Iprat 2.5/0.5MG 3 ML AMPUL.NEB INHALE ×4 (00:03→20:01)
[2022-08-01] MEDS: Heparin Sodium,Porcine 5,000 UNIT/ML VIAL 5000 UNIT SUBCUT ×3 (03:30→22:03)
[2022-08-01] MEDS: Levothyroxine Sodium 175 MCG TABLET PO (05:59)
[2022-08-01 06:14] LABS: MANUAL DIFF FLAG NO
[2022-08-01 06:18] LABS: VBG Base Excess 10.6 mmol/L; VBG HCO3 37 mmol/L (22-26); VBG pCO2 57 mmHg; VBG pH 7.41 (7.32-7.43); VBG pO2 79 mmHg
[2022-08-01 06:21] LABS: Venous Blood Gas Refer to POC result
[2022-08-01 06:27] LABS: Basophils Absolute Auto 0.1 X10*3/uL (0.0-0.2); Basophils Percent Auto 0.5 % (0-2); Eosinophils Absolute Auto 0.2 X10*3/uL (0.0-0.4); Eosinophils Percent Auto 0.9 % (0-4); Hematocrit 33.3 % (37.0-47.0); Hemoglobin 9.8 g/dl (12.0-16.0); Imm Gran Abs Auto 0.16 X10*3/uL (0.00-0.03); Lymphocytes Absolute Auto 0.9 X10*3/uL (1.2-4.9); Lymphocytes Percent Auto 5.4 % (20-40); Mean Corpuscular HGB Conc 29.4 g/dl (31.0-35.0); Mean Corpuscular Hemoglobin 26.7 pg (27.0-33.0); Mean Corpuscular Volume 90.7 fL (80.0-98.0); Mean Platelet Volume 12.4 fL (9.4-12.3); Monocytes Absolute Auto 1.4 X10*3/uL (0.1-1.2); Monocytes Percent Auto 8.5 % (2-11); Neutrophils Absolute Auto 13.9 x10*3/uL (2.0-8.3); Neutrophils Percent Auto 83.7 % (45-73); Platelet Count 168 X10*3/uL (160-400); Red Blood Count 3.67 X10*6/uL (4.20-5.50); Red Cell Distribution Width 15.7 % (11.0-16.0); White Blood Count 16.6 X10*3/uL (4.8-10.8)
[2022-08-01 06:50] LABS: Albumin Level 4.1 g/dL (3.5-5.0); Anion Gap 16 (12-20); Blood Urea Nitrogen 35 mg/dL (9-16); Carbon Dioxide 33 mmol/L (22-29); Chloride 100 mmol/L (96-108); Creatinine Clr Calc Pharmacy 77.7; Estimated Glomerular Filt Rate > 60; Glucose Random 248 mg/dL (60-115); Magnesium 1.8 mg/dL (1.6-2.6); Phosphorus 3.2 mg/dL (2.7-4.5); Potassium 3.1 mmol/L (3.3-5.1); Sodium 146 mmol/L (135-145)
[2022-08-01 08:03] LABS: Glucose, Whole Blood 217 mg/dL (60-115)
--- NOTE | 2022-08-01 08:41 | PC.RT ---
RT requested Dr. Guillen assess patient this am, noted inc wob while on bipap and pt request to come off to n/c 4 lpm. Duonebs were increased from Q6 prn to Q4w/a by and pt was assessed. off bipap at this time but on monitor, RN aware.
--- NOTE | 2022-08-01 08:48 | P.PNIM_ITS ---
Subjective Subjective Date of Service: 08/01/22 Interval History: Being followed for acute on chronic hypoxic and hypercarbic respiratory failure this morning patient reason BiPAP requesting to remove BiPAP noted to be tachypneic using abdominal muscles, BiPAP removed patient complaining of anxiety dry mouth denies chest pain denies chest congestion or shortness of breath no fevers no chills tolerated BiPAP all night, ABG this morning showed a pH of 7.4 pCO2 57 improved from 71, PO2 79, chest x-ray on admission showed small pleural effusion hazy basilar opacities could represent atelectasis or pneumonia. Review of Systems Review of Systems: Yes all other systems are reviewed and are negative Physical Exam Vital Signs: Vital Signs: Last Vital Signs Temp 96.3 F L 08/01/22 07:33 Pulse 96 08/01/22 07:33 Resp 18 08/01/22 07:54 BP 139/65 08/01/22 07:33 Pulse Ox 95 08/01/22 07:33 O2 Del Method BiPAP 08/01/22 07:33 O2 Flow Rate 40 08/01/22 03:26 FiO2 28 07/31/22 04:00 Oxygen Flow Rate 10 07/30/22 05:51 BMI result Body Mass Index 53.1 Const: Other: Gen: awake alert x3 using abd muscles, in acute resp. distress HEENT: sclera anicteric, moist mucus membranes Neck: supple Lungs: diminished breath sounds, bilateral basilar expiratory wheezing ,tachypneic Heart: regular rate and rhythm, no murmurs Abd: soft, obese,non-tender, bowel sounds audible Ext: no pitting edema/discoloration both legs ch. Skin: warm/well-perfused Neuro: alert and oriented x3, no focal findings Psych: appropriate affect Objective Data Active Medications Acetazolamide (Acetazolamide Sodium 500 Mg Vial) 375 mg IVPUSH BID ALAN Stop: 08/02/22 09:01 Last Admin: 07/31/22 21:14 Dose: 375 mg Documented By: KRISSY Albuterol/Ipratropium (Albuterol/Iprat 2.5/0.5mg 3 Ml Ampul.Neb) 3 ml INHALE RQ6H WHILE AWAKE PRN PRN Reason: shortness of breath Last Admin: 08/01/22 00:03 Dose: 3 ml Documented By: BRYAN Albuterol/Ipratropium (Albuterol/Iprat 2.5/0.5mg 3 Ml Ampul.Neb) 3 ml INHALE RQ4H WHILE AWAKE [facility] Heparin Sodium (Porcine) (Heparin Sodium,Porcine 5,000 Unit/Ml Vial) 5,000 unit SUBCUT Q8H [facility] Last Admin: 08/01/22 03:30 Dose: 5,000 unit Documented By: KRISSY Furosemide 200 mg/ Sodium (Chloride) 100 mls @ 2.5 mls/hr IVCONT .Q24H [facility] Stop: 08/01/22 08:50 Last Admin: 07/31/22 17:21 Dose: 5 mg/hr, 2.5 mls/hr Documented By: DANA Furosemide 200 mg/ Sodium (Chloride) 100 mls @ 2.5 mls/hr IVCONT .Q24H [facility] Insulin Glargine (Insulin Glargine,Hum.Rec.Anlog 100 Unit/Ml 10 Ml Vial) 12 unit SUBCUT BEDTIME [facility] Insulin Human Lispro (Insulin Lispro 100 Unit/Ml 3 Ml Vial) 0 unit SUBCUT QIDACHS [facility]; Protocol Last Admin: 07/31/22 21:15 Dose: 6 unit Documented By: KRISSY Latanoprost (Latanoprost 0.005 % Ophth Mona 2.5 Ml Drops) 1 drop EYE-BOTH BEDTIME [facility] Last Admin: 07/31/22 21:31 Dose: 1 drop Documented By: KRISSY Levothyroxine Sodium (Levothyroxine Sodium 175 Mcg Tablet) 175 mcg PO DAILY@0600 [facility] Last Admin: 08/01/22 05:59 Dose: 175 mcg Documented By: KRISSY Metoprolol Tartrate (Metoprolol Tartrate 50 Mg Tablet) 50 mg PO BID [facility]; Protocol Non-Formulary Medication (Brinzolamide-Brimonidine [Simbrinza]) 1 drop EYE- RIGHT BID [facility] Non-Formulary Medication (Chlordiazepoxide Hcl) 10 mg PO BEDTIME [facility] Non-Formulary Medication (Citalopram) 40 mg PO DAILY [facility] Nystatin (Nystatin Powder 15 Gm Bottle) 1 appl TOPICAL TID [facility]; Protocol Last Admin: 07/31/22 21:31 Dose: 1 appl Documented By: KRISSY Polyethylene Glycol (Polyethylene Glycol 3350 17 Gm Powd.Pack) 17 gm PO DAILY [facility] Prednisolone Acetate (Prednisolone Acetate 1 % Oph Susp 5 Ml Drpbtl) 1 drop EYE-RIGHT QID [facility] Last Admin: 07/31/22 21:31 Dose: 1 drop Documented By: KRISSY Senna (Sennosides 8.6 Mg Tablet) 17.2 mg PO DAILY PRN PRN Reason: Constipation Timolol Maleate (Timolol Maleate 0.5 % Oph Mona 5 Ml Drbtl) 1 drop EYE-RIGHT BID [facility] Last Admin: 07/31/22 21:31 Dose: 1 drop Documented By: KRISSY Labs 08/01/22 06:06 08/01/22 06:06 Labs: Laboratory Results - last 24 hr 07/31/22 07/31/22 07/31/22 12:04 16:15 18:18 MCV MCH MCHC RDW Plt Count MPV Immature Gran % (Auto) Neut % (Auto) Lymph % (Auto) [place] % (Auto) Eos % (Auto) Baso % (Auto) Lymph # (Auto) [place] # (Auto) Eos # (Auto) Baso # (Auto) Abs Immat Gran (auto) Absolute Neuts (auto) Absolute Nucleated RBC Nucleated RBC % (auto) VBG pH VBG pCO2 VBG pO2 VBG HCO3 VBG O2 Saturation VBG Base Excess Anion Gap 17 Estim Creat Clear Calc 68.2 Estimated GFR 52 POC Glucose 225 H 202 H Random Glucose 300 H Calcium 8.9 Phosphorus Magnesium Albumin 07/31/22 08/01/22 08/01/22 19:41 06:06 06:06 MCV 90.7 MCH 26.7 L MCHC 29.4 L RDW 15.7 Plt Count 168 D MPV 12.4 H Immature Gran % (Auto) 1.0 H Neut % (Auto) 83.7 H Lymph % (Auto) 5.4 L [place] % (Auto) 8.5 Eos % (Auto) 0.9 Baso % (Auto) 0.5 Lymph # (Auto) 0.9 L [place] # (Auto) 1.4 H Eos # (Auto) 0.2 Baso # (Auto) 0.1 Abs Immat Gran (auto) 0.16 H Absolute Neuts (auto) 13.9 H Absolute Nucleated RBC 0.000 Nucleated RBC % (auto) 0.0 VBG pH VBG pCO2 VBG pO2 VBG HCO3 VBG O2 Saturation VBG Base Excess Anion Gap 16 Estim Creat Clear Calc 77.7 Estimated GFR > 60 POC Glucose 270 H Random Glucose 248 H Calcium 9.0 Phosphorus 3.2 Magnesium 1.8 Albumin 4.1 08/01/22 08/01/22 06:11 07:32 MCV MCH MCHC RDW Plt Count MPV Immature Gran % (Auto) Neut % (Auto) Lymph % (Auto) [place] % (Auto) Eos % (Auto) Baso % (Auto) Lymph # (Auto) [place] # (Auto) Eos # (Auto) Baso # (Auto) Abs Immat Gran (auto) Absolute Neuts (auto) Absolute Nucleated RBC Nucleated RBC % (auto) VBG pH 7.41 VBG pCO2 57 VBG pO2 79 VBG HCO3 37 H VBG O2 Saturation 97.0 VBG Base Excess 10.6 Anion Gap Estim Creat Clear Calc Estimated GFR POC Glucose 217 H Random Glucose Calcium Phosphorus Magnesium Albumin Microbiology Microbiology Results: Microbiology 07/30/22 07:25 Blood Culture - Preliminary Blood - Venous No growth after 24 hours. 07/30/22 06:30 Blood Culture - Preliminary Blood - Venous No growth after 24 hours. Assessment and Plan (1) Hypothyroidism: Status: Acute (2) Acute on chronic respiratory failure with hypoxia and hypercapnia: Status: Acute (3) CHF exacerbation: Status: Acute Plan 72-year-old lady with underlying obesity, obstructive sleep diastolic dysfunct ion, COPD with multiple admissions for acute on chronic respiratory failure presented to [place] ED on 07/30/2022 for complains of slowly worsening dyspnea over several days.? On ER evaluation patient not to be hypoxic and hypercapnic requiring BiPAP.? She was started on diuretic and admitted to the intensive care unit, patient diuresed 2.5 L with improvement in oxygenation and ventilation and transferred to [facility] on 07/31 on IV Lasix # acute on chronic hypoxemic and hypercarbic respiratory failure secondary acute DCHF, no evidence of pneumonia with no fevers, no worsening cough or sputum pro duction, flat troponin, no cp, patient on IV Lasix drip 5mg -5L in last 48 hours remains short of breath despite use of BiPAP overnight, ABG showed stable oxygenation and significant improvement in PCO2, will repeat chest x-ray,add duoneb Q4h [place], gave Ativan for anxiety Will continue IV Lasix renal function improving, mild hypokalemia will replete and follow labs. # leukocytosis ch.likely due to ch seroid, blood cultures x2 negative times 48 hours, no fevers, follow CBC, currently not on steroids. # DM2 resume lantus 12 u at bedtime at home takes lantus 20 bid, Januvia on hold, cont ISS # hypothyroidism on iv LT4 # mood disorder resume citalopram and Librium, since noted to be anxious this morning # HTN resume metoprolol,norvasc on hold # morbid obesity,rec. low calorie diet # CLL - outpt f/u with Dr Ruiz,Acalabrutinib 100 mg b.i.d. request family to bring from home. # VTE ppx: heparin SQ # dispo: anticipate return to SNF In my clinical judgment, the patient requires continued inpatient hospitalization for the following reasons: respiratory failure-requiring BiPAP and IV Lasix drip Time Spent With Patient Time: Total time managing care of this patient today ____ minutes. Quality Stroke Does the patient have a stroke diagnosis?: No VTE Prior VTE?: No VTE Risk Level:: Medical - moderate - high VTE Device Contraindication: Treatment Not Indicated VTE Drug Contraindication: N/A - Med Ordered
[2022-08-01] MEDS: acetaZOLAMIDE sodium 500 MG VIAL 375 MG IVPUSH ×2 (09:01→20:50)
[2022-08-01] MEDS: LORazepam 0.5 MG TABLET PO (09:01)
[2022-08-01] MEDS: Insulin Lispro 100 UNIT/ML 3 ML VIAL SUBCUT ×4 (09:02→20:49)
[2022-08-01] MEDS: Nystatin Powder 15 GM BOTTLE 1 APPL TOPICAL ×3 (10:26→22:04)
[2022-08-01] MEDS: timoloL maleate 0.5 % Oph Sol 5 ML DRBTL 1 DROP EYE-RIGHT ×2 (10:26→20:57)
[2022-08-01] MEDS: Metoprolol Tartrate 50 MG TABLET PO ×2 (10:26→20:48)
[2022-08-01] MEDS: Escitalopram Oxalate 10 MG TABLET PO (10:26)
[2022-08-01] MEDS: Brimonidine Tartrate 0.2% Oph 5 ML BOTTLE 1 DROP EYE-RIGHT ×2 (10:27→21:09)
[2022-08-01] MEDS: Dorzolamide HCl 2 % Ophth Sol 10 ML DRPBTL 1 DROP EYE-RIGHT ×2 (10:27→21:09)
[2022-08-01] MEDS: prednisoLONE Acetate 1 % Oph Susp 5 ML DRPBTL 1 DROP EYE-RIGHT ×4 (10:27→20:57)
[2022-08-01] MEDS: Furosemide 200 MG in 0.9 % Sodium Chloride 80 ML IVCONT (10:27)
[2022-08-01] MEDS: polyethylene glycoL 3350 17 GM POWD.PACK PO (10:27)
[2022-08-01 11:59] LABS: Glucose, Whole Blood 255 mg/dL (60-115)
[2022-08-01] MEDS: Potassium Chloride ER 20 MEQ TAB.ER.PRT 40 MEQ PO (12:32)
[2022-08-01 16:16] LABS: Glucose, Whole Blood 222 mg/dL (60-115)
--- NOTE | 2022-08-01 17:26 | HE.PHANOTE ---
Patient brought in their calquence, this [facility] verfied it, put in the order per provider and sent the medication up to the floor to be put in the patient own bin.
[2022-08-01 19:42] LABS: Glucose, Whole Blood 237 mg/dL (60-115)
[2022-08-01] MEDS: chlordiazePOXIDE HCl 5 MG CAPSULE 10 MG PO (20:48)
[2022-08-01] MEDS: Insulin Glargine,Hum.rec.anlog 100 UNIT/ML 10 ML VIAL 12 UNIT SUBCUT (20:50)
[2022-08-01] MEDS: Latanoprost 0.005 % Ophth Sol 2.5 ML DROPS 1 DROP EYE-BOTH (20:57)
[2022-08-02] VITALS (12 sets, daily range): BP systolic 137–165; BP diastolic 63–77; PULSE 57–89; RESP 18–24; TEMP 36.1–36.8; O2SAT 90–100; BMI 53.1
[2022-08-02] MEDS: Albuterol/Iprat 2.5/0.5MG 3 ML AMPUL.NEB INHALE ×5 (02:40→20:04)
[2022-08-02] MEDS: Levothyroxine Sodium 175 MCG TABLET PO (05:08)
[2022-08-02] MEDS: Heparin Sodium,Porcine 5,000 UNIT/ML VIAL 5000 UNIT SUBCUT ×3 (05:08→21:24)
[2022-08-02 07:17] LABS: Glucose, Whole Blood 174 mg/dL (60-115)
[2022-08-02 07:28] LABS: Anion Gap 15 (12-20); Blood Urea Nitrogen 32 mg/dL (9-16); Calcium 9.1 mg/dL (8.4-10.2); Carbon Dioxide 33 mmol/L (22-29); Chloride 103 mmol/L (96-108); Creatinine Clr Calc Pharmacy 82.3; Estimated Glomerular Filt Rate > 60; Glucose Random 202 mg/dL (60-115); Potassium 3.9 mmol/L (3.3-5.1); Sodium 147 mmol/L (135-145)
[2022-08-02 07:50] LABS: Hematocrit 32.3 % (37.0-47.0); Hemoglobin 9.8 g/dl (12.0-16.0); Mean Corpuscular HGB Conc 30.3 g/dl (31.0-35.0); Mean Corpuscular Hemoglobin 27.3 pg (27.0-33.0); Mean Platelet Volume 12.6 fL (9.4-12.3); Platelet Count 141 X10*3/uL (160-400); Red Blood Count 3.59 X10*6/uL (4.20-5.50); Red Cell Distribution Width 15.6 % (11.0-16.0); White Blood Count 13.1 X10*3/uL (4.8-10.8)
[2022-08-02] MEDS: Insulin Lispro 100 UNIT/ML 3 ML VIAL SUBCUT ×4 (09:18→21:30)
[2022-08-02] MEDS: acetaZOLAMIDE sodium 500 MG VIAL 375 MG IVPUSH (09:18)
[2022-08-02] MEDS: Escitalopram Oxalate 10 MG TABLET PO (09:19)
[2022-08-02] MEDS: Potassium Chloride ER 20 MEQ TAB.ER.PRT 40 MEQ PO (09:19)
[2022-08-02] MEDS: Metoprolol Tartrate 50 MG TABLET PO ×2 (09:20→21:23)
[2022-08-02] MEDS: Brimonidine Tartrate 0.2% Oph 5 ML BOTTLE 1 DROP EYE-RIGHT ×2 (09:20→21:24)
[2022-08-02] MEDS: Dorzolamide HCl 2 % Ophth Sol 10 ML DRPBTL 1 DROP EYE-RIGHT ×2 (09:20→21:24)
[2022-08-02] MEDS: prednisoLONE Acetate 1 % Oph Susp 5 ML DRPBTL 1 DROP EYE-RIGHT ×4 (09:22→21:24)
[2022-08-02] MEDS: Nystatin Powder 15 GM BOTTLE 1 APPL TOPICAL ×3 (09:22→21:24)
[2022-08-02] MEDS: timoloL maleate 0.5 % Oph Sol 5 ML DRBTL 1 DROP EYE-RIGHT ×2 (10:44→21:24)
[2022-08-02 11:21] LABS: Glucose, Whole Blood 218 mg/dL (60-115)
[2022-08-02] MEDS: LORazepam 0.5 MG TABLET PO (14:42)
--- NOTE | 2022-08-02 14:51 | MHC.CM.PN ---
EMR REVIEWED, PT ICU DOWNGRADE OVER W/E, PER HOSPITALIST PT REMAINS ON LASIX DRIP/BIPAP, ANTIC PT WILL REMAIN 1-2 DAYS BEFORE RETURNING TO LTC AT [facility]. CM WILL CONT TO FOLLOW D/C PLANS.
--- NOTE | 2022-08-02 15:23 | P.PNIM_ITS ---
Subjective Subjective Date of Service: 08/02/22 Interval History: negative 6.4L cumulatively thus far. still dyspneic but improving. not using BiPAP at [facility]. anxious Review of Systems Review of Systems: Yes all other systems are reviewed and are negative Physical Exam Vital Signs: Vital Signs: Last Vital Signs Temp 98.3 F 08/02/22 15:09 Pulse 64 08/02/22 15:15 Resp 20 08/02/22 15:15 BP 165/70 H 08/02/22 15:09 Pulse Ox 99 08/02/22 15:09 O2 Del Method Nasal Cannula 08/02/22 15:09 O2 Flow Rate 3 08/02/22 15:09 FiO2 28 07/31/22 04:00 Oxygen Flow Rate 10 07/30/22 05:51 BMI result Body Mass Index 53.1 Gen: NAD HEENT: sclera anicteric, moist mucus membranes Neck: supple Lungs: diminished breath sounds on L, bilateral basilar expiratory wheezing Heart: regular rate and rhythm, no murmurs Abd: soft, morbidly obese, non-tender Ext: 1+ leg edema bilaterally Skin: warm/well-perfused Neuro: alert and oriented x3, no focal findings Psych: appropriate affect Objective Data Active Medications Albuterol/Ipratropium (Albuterol/Iprat 2.5/0.5mg 3 Ml Ampul.Neb) 3 ml INHALE RQ6H WHILE AWAKE PRN PRN Reason: shortness of breath Last Admin: 08/02/22 02:40 Dose: 3 ml Documented By: KERON Albuterol/Ipratropium (Albuterol/Iprat 2.5/0.5mg 3 Ml Ampul.Neb) 3 ml INHALE RQ4H WHILE AWAKE [facility] Last Admin: 08/02/22 15:14 Dose: 3 ml Documented By: BLALUIS Brimonidine Tartrate (Brimonidine Tartrate 0.2% Oph 5 Ml Bottle) 1 drop EYE- RIGHT BID [facility] Last Admin: 08/02/22 09:20 Dose: 1 drop Documented By: MARY GRACE Chlordiazepoxide HCl (Chlordiazepoxide Hcl 5 Mg Capsule) 10 mg PO BEDTIME [facility] Last Admin: 08/01/22 20:48 Dose: 10 mg Documented By: KRISSY Dorzolamide HCl (Dorzolamide Hcl 2 % Ophth Mona 10 Ml Drpbtl) 1 drop EYE-RIGHT BID [facility] Last Admin: 08/02/22 09:20 Dose: 1 drop Documented By: MARY GRACE Escitalopram Oxalate (Escitalopram Oxalate 10 Mg Tablet) 10 mg PO DAILY [facility] Last Admin: 08/02/22 09:19 Dose: 10 mg Documented By: MARY GRACE Heparin Sodium (Porcine) (Heparin Sodium,Porcine 5,000 Unit/Ml Vial) 5,000 unit SUBCUT Q8H [facility] Last Admin: 08/02/22 12:07 Dose: 5,000 unit Documented By: MARY GRACE Furosemide 200 mg/ Sodium (Chloride) 100 mls @ 2.5 mls/hr IVCONT .Q24H [facility] Last Admin: 08/02/22 11:45 Dose: Not Given Documented By: MARY GRACE Non-Admin Reason: IV Running Insulin Glargine (Insulin Glargine,Hum.Rec.Anlog 100 Unit/Ml 10 Ml Vial) 12 unit SUBCUT BEDTIME [facility] Last Admin: 08/01/22 20:50 Dose: 12 unit Documented By: KRISSY Insulin Human Lispro (Insulin Lispro 100 Unit/Ml 3 Ml Vial) 0 unit SUBCUT QIDACHS [facility]; Protocol Last Admin: 08/02/22 12:07 Dose: 4 unit Documented By: MARY GRACE Latanoprost (Latanoprost 0.005 % Ophth Mona 2.5 Ml Drops) 1 drop EYE-BOTH BEDTIME [facility] Last Admin: 08/01/22 20:57 Dose: 1 drop Documented By: KRISSY Levothyroxine Sodium (Levothyroxine Sodium 175 Mcg Tablet) 175 mcg PO DAILY@0600 [facility] Last Admin: 08/02/22 05:08 Dose: 175 mcg Documented By: KRISSY Metoprolol Tartrate (Metoprolol Tartrate 50 Mg Tablet) 50 mg PO BID [facility]; Protocol Last Admin: 08/02/22 09:20 Dose: 50 mg Documented By: MARY GRACE Pt Own (Calquence (100 Mg Tablet)) 100 mg PO Q12H [facility] Last Admin: 08/02/22 09:17 Dose: 100 mg Documented By: MARY GRACE Comments: pt was on bipap machine. Nystatin (Nystatin Powder 15 Gm Bottle) 1 appl TOPICAL TID [facility]; Protocol Last Admin: 08/02/22 13:59 Dose: 1 appl Documented By: MARY GRACE Polyethylene Glycol (Polyethylene Glycol 3350 17 Gm Powd.Pack) 17 gm PO DAILY [facility] Last Admin: 08/02/22 09:22 Dose: Not Given Documented By: MARY GRACE Non-Admin Reason: Patient Refused Potassium Chloride (Potassium Chloride Er 20 Meq Tab.Er.Prt) 40 meq PO DAILY [facility] Last Admin: 08/02/22 09:19 Dose: 40 meq Documented By: MARY GRACE Prednisolone Acetate (Prednisolone Acetate 1 % Oph Susp 5 Ml Drpbtl) 1 drop EYE-RIGHT QID [facility] Last Admin: 08/02/22 13:58 Dose: 1 drop Documented By: MARY GRACE Senna (Sennosides 8.6 Mg Tablet) 17.2 mg PO DAILY PRN PRN Reason: Constipation Timolol Maleate (Timolol Maleate 0.5 % Oph Mona 5 Ml Drbtl) 1 drop EYE-RIGHT BID [facility] Last Admin: 08/02/22 10:44 Dose: 1 drop Documented By: MARY GRACE Labs 08/02/22 06:20 08/02/22 06:20 Labs: Laboratory Results - last 24 hr 08/01/22 08/01/22 08/02/22 16:13 19:38 06:20 MCV 90.0 MCH 27.3 MCHC 30.3 L RDW 15.6 Plt Count 141 L MPV 12.6 H Absolute Nucleated RBC 0.000 Nucleated RBC % (auto) 0.0 Anion Gap Estim Creat Clear Calc Estimated GFR POC Glucose 222 H 237 H Random Glucose Calcium 08/02/22 08/02/22 08/02/22 06:20 07:12 11:15 MCV MCH MCHC RDW Plt Count MPV Absolute Nucleated RBC Nucleated RBC % (auto) Anion Gap 15 Estim Creat Clear Calc 82.3 Estimated GFR > 60 POC Glucose 174 H 218 H Random Glucose 202 H Calcium 9.1 Assessment and Plan (1) Hypothyroidism: Status: Acute (2) Acute on chronic respiratory failure with hypoxia and hypercapnia: Status: Acute (3) CHF exacerbation: Status: Acute Plan d#4 72yo F resident of [facility] with obesity, LATONYA, HFpEF, COPD admitted for worsening dyspnea, found to be hypoxic and hypercapneic and admitted to ICU for BiPAP support downgraded to [facility] 07/31/22 # acute/chronic hypoxic/hypercarbic respiratory failure due to CHF exacerbation - continue BiPAP, furosemide gtt, trend lytes/I+O/BNP # large L pleural effusion - IR thoracentesis, fluid studies, diuresis as above; likely due to CHF # leukocytosis - attributed to chronic steroids, not currently on steroids, BCx negative, afebrile # HTN - continue metoprolol tartrate # DM2 - basal-bolus insulin # hypothyroidism - LT4 # mood disorder - chlordiazepoxide, escitalopram # CLL - continue acalabrutinib from home # VTE ppx: UFH # dispo: anticipate return to SNF eventually In my clinical judgment, the patient requires continued inpatient hospitalization for the following reasons: respiratory failure-requiring BiPAP and IV Lasix drip Time Spent With Patient Time: Total time managing care of this patient today __40__ minutes. Quality Stroke Does the patient have a stroke diagnosis?: No VTE Prior VTE?: No VTE Risk Level:: Medical - moderate - high VTE Device Contraindication: Treatment Not Indicated VTE Drug Contraindication: N/A - Med Ordered
[2022-08-02 16:17] LABS: Glucose, Whole Blood 173 mg/dL (60-115)
[2022-08-02 20:05] LABS: Glucose, Whole Blood 172 mg/dL (60-115)
[2022-08-02] MEDS: chlordiazePOXIDE HCl 5 MG CAPSULE 10 MG PO (21:23)
[2022-08-02] MEDS: Latanoprost 0.005 % Ophth Sol 2.5 ML DROPS 1 DROP EYE-BOTH (21:24)
[2022-08-02] MEDS: Insulin Glargine,Hum.rec.anlog 100 UNIT/ML 10 ML VIAL 12 UNIT SUBCUT (21:29)
[2022-08-02] MEDS: hydrOXYzine HCL 50 MG/ML VIAL IM (22:40)
[2022-08-03] VITALS (10 sets, daily range): BP systolic 134–155; BP diastolic 60–70; PULSE 57–84; RESP 16–20; TEMP 36.1–36.7; O2SAT 4–100
[2022-08-03] MEDS: Furosemide 200 MG in 0.9 % Sodium Chloride 80 ML IVCONT (02:35)
[2022-08-03] MEDS: Heparin Sodium,Porcine 5,000 UNIT/ML VIAL 5000 UNIT SUBCUT (05:17)
[2022-08-03] MEDS: Levothyroxine Sodium 175 MCG TABLET PO (05:18)
[2022-08-03 06:34] LABS: Venous Blood Gas Refer to POC result
[2022-08-03 06:35] LABS: VBG Base Excess 13.1 mmol/L; VBG HCO3 37 mmol/L (22-26); VBG pCO2 47 mmHg; VBG pO2 53 mmHg
[2022-08-03 06:51] LABS: B Type Natriuretic Peptide 277 pg/mL (<100)
[2022-08-03 07:28] LABS: Blood Urea Nitrogen 33 mg/dL (9-16); Calcium 8.6 mg/dL (8.4-10.2); Creatinine Clr Calc Pharmacy 88.5; Estimated Glomerular Filt Rate > 60; Glucose Random 136 mg/dL (60-115); Magnesium 1.8 mg/dL (1.6-2.6)
[2022-08-03 07:42] LABS: Anion Gap 14 (12-20); Carbon Dioxide 33 mmol/L (22-29); Chloride 102 mmol/L (96-108); Sodium 146 mmol/L (135-145)
[2022-08-03] MEDS: Albuterol/Iprat 2.5/0.5MG 3 ML AMPUL.NEB INHALE ×4 (07:53→19:21)
[2022-08-03 08:02] LABS: Glucose, Whole Blood 142 mg/dL (60-115)
[2022-08-03 08:37] LABS: Prothrombin Time 11.7 SEC (10.0-13.1)
[2022-08-03 08:40] LABS: Partial Thromboplastin Time 30.8 SEC (26.0-36.4)
[2022-08-03] MEDS: Potassium Chloride/H20 10 MEQ/100 ML PIGGYBACK 100 MEQ IV (09:18)
[2022-08-03] MEDS: Escitalopram Oxalate 10 MG TABLET PO (09:21)
[2022-08-03] MEDS: Metoprolol Tartrate 50 MG TABLET PO ×2 (09:21→22:40)
[2022-08-03] MEDS: Potassium Chloride ER 20 MEQ TAB.ER.PRT 40 MEQ PO (09:21)
[2022-08-03] MEDS: Dorzolamide HCl 2 % Ophth Sol 10 ML DRPBTL 1 DROP EYE-RIGHT ×2 (09:26→22:41)
[2022-08-03] MEDS: Brimonidine Tartrate 0.2% Oph 5 ML BOTTLE 1 DROP EYE-RIGHT ×2 (09:26→22:40)
[2022-08-03] MEDS: timoloL maleate 0.5 % Oph Sol 5 ML DRBTL 1 DROP EYE-RIGHT ×2 (09:27→22:40)
[2022-08-03] MEDS: prednisoLONE Acetate 1 % Oph Susp 5 ML DRPBTL 1 DROP EYE-RIGHT ×4 (09:27→22:41)
[2022-08-03] MEDS: Nystatin Powder 15 GM BOTTLE 1 APPL TOPICAL ×3 (09:28→22:41)
[2022-08-03] MEDS: LORazepam 0.5 MG TABLET PO (10:49)
--- NOTE | 2022-08-03 11:37 | HO.PM.IMPN ---
Subjective Subjective Date of Service: 08/03/22 Interval History: still dyspneic but diuresing well anxious OK with thoracentesis Review of Systems Review of Systems: Yes all other systems are reviewed and are negative Physical Exam Vital Signs: Vital Signs: Last Vital Signs Temp 97.1 F 08/03/22 11:00 Pulse 63 08/03/22 11:00 Resp 18 08/03/22 11:00 BP 155/66 H 08/03/22 11:00 Pulse Ox 4 L 08/03/22 11:00 O2 Del Method CPAP 08/03/22 07:00 O2 Flow Rate 35 08/03/22 07:00 FiO2 28 07/31/22 04:00 Oxygen Flow Rate 10 07/30/22 05:51 BMI result Body Mass Index 53.1 Gen: NAD HEENT: sclera anicteric, moist mucus membranes Neck: supple Lungs: diminished breath sounds on L, bilateral basilar expiratory wheezing Heart: regular rate and rhythm, no murmurs Abd: soft, morbidly obese, non-tender Ext: 1+ leg edema bilaterally Skin: warm/well-perfused Neuro: alert and oriented x3, no focal findings Psych: appropriate affect Objective Data Active Medications Albuterol/Ipratropium (Albuterol/Iprat 2.5/0.5mg 3 Ml Ampul.Neb) 3 ml INHALE RQ6H WHILE AWAKE PRN PRN Reason: shortness of breath Last Admin: 08/02/22 02:40 Dose: 3 ml Documented By: KERON Albuterol/Ipratropium (Albuterol/Iprat 2.5/0.5mg 3 Ml Ampul.Neb) 3 ml INHALE RQ4H WHILE AWAKE [facility] Last Admin: 08/03/22 07:53 Dose: 3 ml Documented By: MAREK Brimonidine Tartrate (Brimonidine Tartrate 0.2% Oph 5 Ml Bottle) 1 drop EYE-RIGHT BID [facility] Last Admin: 08/03/22 09:26 Dose: 1 drop Documented By: MARY GRACE Chlordiazepoxide HCl (Chlordiazepoxide Hcl 5 Mg Capsule) 10 mg PO BEDTIME [facility] Last Admin: 08/02/22 21:23 Dose: 10 mg Documented By: ELENA Dorzolamide HCl (Dorzolamide Hcl 2 % Ophth Mona 10 Ml Drpbtl) 1 drop EYE-RIGHT BID [facility] Last Admin: 08/03/22 09:26 Dose: 1 drop Documented By: MARY GRACE Escitalopram Oxalate (Escitalopram Oxalate 10 Mg Tablet) 10 mg PO DAILY [facility] Last Admin: 08/03/22 09:21 Dose: 10 mg Documented By: MARY GRACE Heparin Sodium (Porcine) (Heparin Sodium,Porcine 5,000 Unit/Ml Vial) 5,000 unit SUBCUT Q8H [facility] Last Admin: 08/03/22 05:17 Dose: 5,000 unit Documented By: ELENA Furosemide 200 mg/ Sodium (Chloride) 100 mls @ 2.5 mls/hr IVCONT .Q24H [facility] Last Admin: 08/03/22 02:35 Dose: 5 mg/hr, 2.5 mls/hr Documented By: ELENA Insulin Glargine (Insulin Glargine,Hum.Rec.Anlog 100 Unit/Ml 10 Ml Vial) 12 unit SUBCUT BEDTIME [facility] Last Admin: 08/02/22 21:29 Dose: 12 unit Documented By: ELENA Insulin Human Lispro (Insulin Lispro 100 Unit/Ml 3 Ml Vial) 0 unit SUBCUT QIDACHS [facility]; Protocol Last Admin: 08/03/22 08:08 Dose: Not Given Documented By: MARY GRACE Non-Admin Reason: No Insulin Coverage Latanoprost (Latanoprost 0.005 % Ophth Mona 2.5 Ml Drops) 1 drop EYE-BOTH BEDTIME [facility] Last Admin: 08/02/22 21:24 Dose: 1 drop Documented By: ELENA Levothyroxine Sodium (Levothyroxine Sodium 175 Mcg Tablet) 175 mcg PO DAILY@0600 [facility] Last Admin: 08/03/22 05:18 Dose: 175 mcg Documented By: ELENA Lorazepam (Lorazepam 0.5 Mg Tablet) 0.5 mg PO Q8H PRN PRN Reason: sever anxiety Last Admin: 08/03/22 10:49 Dose: 0.5 mg Documented By: MARY GRACE Metoprolol Tartrate (Metoprolol Tartrate 50 Mg Tablet) 50 mg PO BID [facility]; Protocol Last Admin: 08/03/22 09:21 Dose: 50 mg Documented By: MARY GRACE Pt Own (Calquence (100 Mg Tablet)) 100 mg PO Q12H [facility] Last Admin: 08/03/22 05:18 Dose: 100 mg Documented By: ELENA Nystatin (Nystatin Powder 15 Gm Bottle) 1 appl TOPICAL TID [facility]; Protocol Last Admin: 08/03/22 09:28 Dose: 1 appl Documented By: MARY GRACE Polyethylene Glycol (Polyethylene Glycol 3350 17 Gm Powd.Pack) 17 gm PO DAILY [facility] Last Admin: 08/03/22 09:26 Dose: Not Given Documented By: MARY GRACE Non-Admin Reason: 2 BM yeterday Potassium Chloride (Potassium Chloride Er 20 Meq Tab.Er.Prt) 40 meq PO DAILY [facility] Last Admin: 08/03/22 09:21 Dose: 40 meq Documented By: MARY GRACE Prednisolone Acetate (Prednisolone Acetate 1 % Oph Susp 5 Ml Drpbtl) 1 drop EYE-RIGHT QID [facility] Last Admin: 08/03/22 09:27 Dose: 1 drop Documented By: MARY GRACE Senna (Sennosides 8.6 Mg Tablet) 17.2 mg PO DAILY PRN PRN Reason: Constipation Timolol Maleate (Timolol Maleate 0.5 % Oph Mona 5 Ml Drbtl) 1 drop EYE-RIGHT BID [facility] Last Admin: 08/03/22 09:27 Dose: 1 drop Documented By: MARY GRACE Labs 08/02/22 06:20 08/03/22 06:21 Labs: Laboratory Results - last 24 hr 08/02/22 08/02/22 08/03/22 16:08 20:01 06:21 PT INR APTT VBG pH VBG pCO2 VBG pO2 VBG HCO3 VBG O2 Saturation VBG Base Excess Anion Gap 14 Estim Creat Clear Calc 88.5 Estimated GFR > 60 POC Glucose 173 H 172 H Random Glucose 136 H Calcium 8.6 Magnesium 1.8 B-Natriuretic Peptide 08/03/22 08/03/22 08/03/22 06:21 06:26 07:40 PT INR APTT VBG pH 7.50 H VBG pCO2 47 VBG pO2 53 VBG HCO3 37 H VBG O2 Saturation 89.0 VBG Base Excess 13.1 Anion Gap Estim Creat Clear Calc Estimated GFR POC Glucose 142 H Random Glucose Calcium Magnesium B-Natriuretic Peptide 277 H 08/03/22 08:25 PT 11.7 INR 1.0 APTT 30.8 VBG pH VBG pCO2 VBG pO2 VBG HCO3 VBG O2 Saturation VBG Base Excess Anion Gap Estim Creat Clear Calc Estimated GFR POC Glucose Random Glucose Calcium Magnesium B-Natriuretic Peptide Assessment and Plan (1) Hypothyroidism: Status: Acute (2) Acute on chronic respiratory failure with hypoxia and hypercapnia: Status: Acute (3) CHF exacerbation: Status: Acute Plan d#5 72[facility] F resident of [facility] with obesity, LATONYA, HFpEF, COPD admitted for worsening dyspnea, found to be hypoxic and hypercapneic and admitted to ICU for BiPAP support downgraded to [facility] 07/31/22 # acute/chronic hypoxic/hypercarbic respiratory failure due to CHF exacerbation - continue BiPAP, furosemide gtt, trend lytes/I+O/BNP # large L pleural effusion - IR thoracentesis, fluid studies, diuresis as above; likely due to CHF # leukocytosis - attributed to chronic steroids, not currently on steroids, BCx negative, afebrile # HTN - continue metoprolol tartrate # DM2 - basal-bolus insulin # hypothyroidism - LT4 # mood disorder - chlordiazepoxide, escitalopram # CLL - continue acalabrutinib from home # VTE ppx: UFH # dispo: anticipate return to SNF eventually In my clinical judgment, the patient requires continued inpatient hospitalization for the following reasons: respiratory failure-requiring BiPAP and IV Lasix drip as well as thoracentesis Time Spent With Patient Time: Total time managing care of this patient today __40 __ minutes. Quality Stroke Does the patient have a stroke diagnosis?: No VTE Prior VTE?: No VTE Risk Level:: Medical - moderate - high VTE Device Contraindication: Treatment Not Indicated VTE Drug Contraindication: N/A - Med Ordered
[2022-08-03 11:55] LABS: Glucose, Whole Blood 222 mg/dL (60-115)
[2022-08-03 12:17] LABS: Lactate Dehydrogenase 178 U/L (122-220)
[2022-08-03] MEDS: Insulin Lispro 100 UNIT/ML 3 ML VIAL SUBCUT ×3 (13:26→22:41)
--- NOTE | 2022-08-03 13:40 | PC.NURSE ---
Addendum entered by Nisa Ballesteros RN 08/03/22 18:11: pt reported her vision is getting worst. pt is legally blind, but able to see shadow. recently, seeing darker than it was. On assessment with the pen light, pt R eye is better than the L eye. aware, keep monitor. Original Note: on assessment, pt has two spots that is bleeding a bit after cleaning pt with regular wipes. pressured applied. MD notified. held Heparin injection.
[2022-08-03 16:12] LABS: Glucose, Whole Blood 249 mg/dL (60-115)
[2022-08-03 19:47] LABS: Glucose, Whole Blood 285 mg/dL (60-115)
[2022-08-03] MEDS: Insulin Glargine,Hum.rec.anlog 100 UNIT/ML 10 ML VIAL 12 UNIT SUBCUT (22:40)
[2022-08-03] MEDS: Latanoprost 0.005 % Ophth Sol 2.5 ML DROPS 1 DROP EYE-BOTH (22:40)
[2022-08-03] MEDS: chlordiazePOXIDE HCl 5 MG CAPSULE 10 MG PO (22:43)
[2022-08-04] VITALS (12 sets, daily range): BP systolic 120–149; BP diastolic 56–80; PULSE 61–94; RESP 16–22; TEMP 36.1–37.2; O2SAT 92–100
[2022-08-04] MEDS: Levothyroxine Sodium 175 MCG TABLET PO (05:55)
[2022-08-04 07:19] LABS: Anion Gap 12 (12-20); Blood Urea Nitrogen 36 mg/dL (9-16); Calcium 8.6 mg/dL (8.4-10.2); Carbon Dioxide 35 mmol/L (22-29); Chloride 101 mmol/L (96-108); Estimated Glomerular Filt Rate > 60; Glucose Random 140 mg/dL (60-115); Magnesium 1.8 mg/dL (1.6-2.6); Sodium 145 mmol/L (135-145)
[2022-08-04 07:22] LABS: B Type Natriuretic Peptide 172 pg/mL (<100)
[2022-08-04 07:27] LABS: Glucose, Whole Blood 154 mg/dL (60-115)
[2022-08-04] MEDS: Insulin Lispro 100 UNIT/ML 3 ML VIAL SUBCUT ×4 (09:04→21:19)
[2022-08-04] MEDS: Escitalopram Oxalate 10 MG TABLET PO (09:06)
[2022-08-04] MEDS: Potassium Chloride ER 20 MEQ TAB.ER.PRT 40 MEQ PO ×2 (09:06→10:14)
[2022-08-04] MEDS: Bumetanide 1 MG TABLET 2 MG PO ×2 (09:06→16:38)
[2022-08-04] MEDS: Metoprolol Tartrate 50 MG TABLET PO ×2 (09:06→21:20)
[2022-08-04] MEDS: timoloL maleate 0.5 % Oph Sol 5 ML DRBTL 1 DROP EYE-RIGHT ×2 (09:07→21:36)
[2022-08-04] MEDS: Dorzolamide HCl 2 % Ophth Sol 10 ML DRPBTL 1 DROP EYE-RIGHT ×2 (09:07→21:35)
[2022-08-04] MEDS: prednisoLONE Acetate 1 % Oph Susp 5 ML DRPBTL 1 DROP EYE-RIGHT ×4 (09:07→21:35)
[2022-08-04] MEDS: Nystatin Powder 15 GM BOTTLE 1 APPL TOPICAL ×2 (09:07→21:22)
[2022-08-04] MEDS: Brimonidine Tartrate 0.2% Oph 5 ML BOTTLE 1 DROP EYE-RIGHT ×2 (09:07→21:36)
[2022-08-04] MEDS: Potassium Chloride/H20 10 MEQ/100 ML PIGGYBACK 100 MEQ IV (09:11)
--- NOTE | 2022-08-04 09:37 | HO.PM.IMPN ---
Subjective Subjective Date of Service: 08/04/22 Interval History: pleural effusion decreased in size, too small to tap breathing improved negative 10.3 L thus far Review of Systems Review of Systems: Yes all other systems are reviewed and are negative Physical Exam Vital Signs: Vital Signs: Last Vital Signs Temp 97.8 F 08/04/22 07:12 Pulse 66 08/04/22 07:12 Resp 16 08/04/22 07:12 BP 124/58 L 08/04/22 07:12 Pulse Ox 94 08/04/22 07:12 O2 Del Method Nasal Cannula 08/04/22 07:12 O2 Flow Rate 4 08/04/22 07:12 FiO2 28 07/31/22 04:00 Oxygen Flow Rate 10 07/30/22 05:51 BMI result Body Mass Index 53.1 Gen: NAD HEENT: sclera anicteric, moist mucus membranes Neck: supple Lungs: diminished breath sounds L base, no wheezing Heart: regular rate and rhythm, no murmurs Abd: soft, morbidly obese, non-tender Ext: trace leg edema bilaterally Skin: warm/well-perfused Neuro: alert and oriented x3, no focal findings Psych: appropriate affect Objective Data Active Medications Albuterol/Ipratropium (Albuterol/Iprat 2.5/0.5mg 3 Ml Ampul.Neb) 3 ml INHALE RQ6H WHILE AWAKE PRN PRN Reason: shortness of breath Last Admin: 08/02/22 02:40 Dose: 3 ml Documented By: KERON Albuterol/Ipratropium (Albuterol/Iprat 2.5/0.5mg 3 Ml Ampul.Neb) 3 ml INHALE RQ4H WHILE AWAKE [facility] Last Admin: 08/04/22 07:58 Dose: Not Given Documented By: JUS Non-Admin Reason: pt eating Brimonidine Tartrate (Brimonidine Tartrate 0.2% Oph 5 Ml Bottle) 1 drop EYE-RIGHT BID [facility] Last Admin: 08/04/22 09:07 Dose: 1 drop Documented By: MARYSOL Bumetanide (Bumetanide 1 Mg Tablet) 2 mg PO BID@0800,1700 [facility]; Protocol Last Admin: 08/04/22 09:06 Dose: 2 mg Documented By: MARYSOL Chlordiazepoxide HCl (Chlordiazepoxide Hcl 5 Mg Capsule) 10 mg PO BEDTIME [facility] Last Admin: 08/03/22 22:43 Dose: 10 mg Documented By: JACKIE Dorzolamide HCl (Dorzolamide Hcl 2 % Ophth Mona 10 Ml Drpbtl) 1 drop EYE-RIGHT BID [facility] Last Admin: 08/04/22 09:07 Dose: 1 drop Documented By: MARYSOL Escitalopram Oxalate (Escitalopram Oxalate 10 Mg Tablet) 10 mg PO DAILY [facility] Last Admin: 08/04/22 09:06 Dose: 10 mg Documented By: MARYSOL Heparin Sodium (Porcine) (Heparin Sodium,Porcine 5,000 Unit/Ml Vial) 5,000 unit SUBCUT Q8H [facility] Last Admin: 08/04/22 04:55 Dose: Not Given Documented By: JACKIE Non-Admin Reason: Physician Held Med Insulin Glargine (Insulin Glargine,Hum.Rec.Anlog 100 Unit/Ml 10 Ml Vial) 12 unit SUBCUT BEDTIME [facility] Last Admin: 08/03/22 22:40 Dose: 12 unit Documented By: JACKIE Insulin Human Lispro (Insulin Lispro 100 Unit/Ml 3 Ml Vial) 0 unit SUBCUT QIDACHS [facility]; Protocol Last Admin: 08/04/22 09:04 Dose: 2 unit Documented By: MARYSOL Latanoprost (Latanoprost 0.005 % Ophth Mona 2.5 Ml Drops) 1 drop EYE-BOTH BEDTIME [facility] Last Admin: 08/03/22 22:40 Dose: 1 drop Documented By: JACKIE Levothyroxine Sodium (Levothyroxine Sodium 175 Mcg Tablet) 175 mcg PO DAILY@0600 [facility] Last Admin: 08/04/22 05:55 Dose: 175 mcg Documented By: JACKIE Lorazepam (Lorazepam 0.5 Mg Tablet) 0.5 mg PO Q8H PRN PRN Reason: sever anxiety Last Admin: 08/03/22 10:49 Dose: 0.5 mg Documented By: MARY GRACE Metoprolol Tartrate (Metoprolol Tartrate 50 Mg Tablet) 50 mg PO BID [facility]; Protocol Last Admin: 08/04/22 09:06 Dose: 50 mg Documented By: MARYSOL Pt Own (Calquence (100 Mg Tablet)) 100 mg PO Q12H [facility] Last Admin: 08/04/22 05:56 Dose: 100 mg Documented By: JACKIE Nystatin (Nystatin Powder 15 Gm Bottle) 1 appl TOPICAL TID [facility]; Protocol Last Admin: 08/04/22 09:07 Dose: 1 appl Documented By: MARYSOL Polyethylene Glycol (Polyethylene Glycol 3350 17 Gm Powd.Pack) 17 gm PO DAILY [facility] Last Admin: 08/04/22 09:07 Dose: Not Given Documented By: MARYSOL Non-Admin Reason: Patient Refused Potassium Chloride (Potassium Chloride Er 20 Meq Tab.Er.Prt) 40 meq PO DAILY [facility] Last Admin: 08/04/22 09:06 Dose: 40 meq Documented By: MARYSOL Potassium Chloride (Potassium Chloride Er 20 Meq Tab.Er.Prt) 40 meq PO ONCE ONE Stop: 08/04/22 09:36 Prednisolone Acetate (Prednisolone Acetate 1 % Oph Susp 5 Ml Drpbtl) 1 drop EYE-RIGHT QID [facility] Last Admin: 08/04/22 09:07 Dose: 1 drop Documented By: MARYSOL Senna (Sennosides 8.6 Mg Tablet) 17.2 mg PO DAILY PRN PRN Reason: Constipation Timolol Maleate (Timolol Maleate 0.5 % Oph Mona 5 Ml Drbtl) 1 drop EYE-RIGHT BID [facility] Last Admin: 08/04/22 09:07 Dose: 1 drop Documented By: MARYSOL Labs 08/02/22 06:20 08/04/22 06:36 Labs: Laboratory Results - last 24 hr 08/03/22 08/03/22 08/03/22 06:21 11:51 16:08 Anion Gap Estim Creat Clear Calc Estimated GFR POC Glucose 222 H 249 H Random Glucose Calcium Magnesium Lactate Dehydrogenase 178 B-Natriuretic Peptide 08/03/22 08/04/22 08/04/22 19:43 06:36 06:36 Anion Gap 12 Estim Creat Clear Calc 76.0 Estimated GFR > 60 POC Glucose 285 H Random Glucose 140 H Calcium 8.6 Magnesium 1.8 Lactate Dehydrogenase B-Natriuretic Peptide 172 H 08/04/22 07:09 Anion Gap Estim Creat Clear Calc Estimated GFR POC Glucose 154 H Random Glucose Calcium Magnesium Lactate Dehydrogenase B-Natriuretic Peptide Microbiology Microbiology Results: Microbiology 07/30/22 06:30 Blood Culture - Final Blood - Venous No growth after 5 days. Assessment and Plan (1) Hypothyroidism: Status: Acute (2) Acute on chronic respiratory failure with hypoxia and hypercapnia: Status: Acute (3) CHF exacerbation: Status: Acute Plan d#6 72yo F resident of [facility] with obesity, LATONYA, HFpEF, COPD presented 07/30/22 with worsening dyspnea, found to be hypoxic and hypercapneic and admitted to ICU for BiPAP support downgraded to [facility] 07/31/22 # acute/chronic hypoxic/hypercarbic respiratory failure due to CHF exacerbation - continue BiPAP at night - change furosemide gtt to PO bumetanide - trend lytes/I+O/BNP # large L pleural effusion - decreased with diuresis and too small to tap; was likely due to CHF # hypoK - replete, recheck in AM # leukocytosis - attributed to chronic steroids, not currently on steroids, BCx negative, afebrile # HTN - continue metoprolol tartrate # DM2 - basal-bolus insulin # hypothyroidism - LT4 # mood disorder - chlordiazepoxide, escitalopram # CLL - continue acalabrutinib from home # VTE ppx: UFH # dispo: anticipate return to SNF eventually In my clinical judgment, the patient requires continued inpatient hospitalization for the following reasons: respiratory failure-requiring BiPAP Time Spent With Patient Time: Total time managing care of this patient today __35__ minutes. Quality Stroke Does the patient have a stroke diagnosis?: No VTE Prior VTE?: No VTE Risk Level:: Medical - moderate - high VTE Device Contraindication: Treatment Not Indicated VTE Drug Contraindication: N/A - Med Ordered
[2022-08-04] MEDS: Albuterol/Iprat 2.5/0.5MG 3 ML AMPUL.NEB INHALE ×3 (09:40→19:15)
[2022-08-04 11:11] LABS: Glucose, Whole Blood 279 mg/dL (60-115)
--- NOTE | 2022-08-04 12:20 | MHC.CLN ---
F/U PT WITH INCREASED NUTRITION RISK R/T PRESSURE INJURY PO ITNAKE VARIABLE RANGING FROM 0-100% DIET RX: 2200DM-APPROPRIATE PT RECEIVING ENSURE MAX BID TO PROVIDE 300KCALS, 60G PROTEIN MONITOR PO INTAKE CLOSELY
[2022-08-04] MEDS: LORazepam 0.5 MG TABLET PO ×2 (12:38→21:21)
[2022-08-04 16:08] LABS: Glucose, Whole Blood 260 mg/dL (60-115)
[2022-08-04 20:05] LABS: Glucose, Whole Blood 322 mg/dL (60-115)
[2022-08-04] MEDS: Insulin Glargine,Hum.rec.anlog 100 UNIT/ML 10 ML VIAL 12 UNIT SUBCUT (21:20)
[2022-08-04] MEDS: chlordiazePOXIDE HCl 5 MG CAPSULE 10 MG PO (21:20)
[2022-08-04] MEDS: Heparin Sodium,Porcine 5,000 UNIT/ML VIAL 5000 UNIT SUBCUT (21:34)
[2022-08-04] MEDS: Latanoprost 0.005 % Ophth Sol 2.5 ML DROPS 1 DROP EYE-BOTH (21:35)
[2022-08-05] VITALS (11 sets, daily range): BP systolic 123–158; BP diastolic 60–71; PULSE 61–74; RESP 16–20; TEMP 35.9–36.8; O2SAT 93–100; BMI 50.5
[2022-08-05] MEDS: Heparin Sodium,Porcine 5,000 UNIT/ML VIAL 5000 UNIT SUBCUT ×2 (05:58→12:39)
[2022-08-05] MEDS: Levothyroxine Sodium 175 MCG TABLET PO (05:59)
[2022-08-05 07:56] LABS: Anion Gap 14 (12-20); Blood Urea Nitrogen 34 mg/dL (9-16); Calcium 8.5 mg/dL (8.4-10.2); Carbon Dioxide 30 mmol/L (22-29); Chloride 102 mmol/L (96-108); Creatinine Clr Calc Pharmacy 59.9; Estimated Glomerular Filt Rate 47; Glucose Random 279 mg/dL (60-115); Magnesium 1.9 mg/dL (1.6-2.6); Potassium 3.5 mmol/L (3.3-5.1); Sodium 142 mmol/L (135-145)
[2022-08-05 08:00] LABS: B Type Natriuretic Peptide 188 pg/mL (<100)
[2022-08-05 08:15] LABS: Glucose, Whole Blood 274 mg/dL (60-115)
[2022-08-05] MEDS: Albuterol/Iprat 2.5/0.5MG 3 ML AMPUL.NEB INHALE ×4 (08:15→20:55)
[2022-08-05] MEDS: Metoprolol Tartrate 50 MG TABLET PO ×2 (08:32→20:58)
[2022-08-05] MEDS: Insulin Lispro 100 UNIT/ML 3 ML VIAL SUBCUT ×4 (08:32→20:58)
[2022-08-05] MEDS: Bumetanide 1 MG TABLET 2 MG PO ×2 (08:32→17:02)
[2022-08-05] MEDS: Dorzolamide HCl 2 % Ophth Sol 10 ML DRPBTL 1 DROP EYE-RIGHT ×2 (08:33→22:07)
[2022-08-05] MEDS: timoloL maleate 0.5 % Oph Sol 5 ML DRBTL 1 DROP EYE-RIGHT ×2 (08:33→22:14)
[2022-08-05] MEDS: Escitalopram Oxalate 10 MG TABLET PO (08:33)
[2022-08-05] MEDS: Potassium Chloride ER 20 MEQ TAB.ER.PRT 40 MEQ PO (08:33)
[2022-08-05] MEDS: Brimonidine Tartrate 0.2% Oph 5 ML BOTTLE 1 DROP EYE-RIGHT ×2 (08:33→22:13)
[2022-08-05] MEDS: prednisoLONE Acetate 1 % Oph Susp 5 ML DRPBTL 1 DROP EYE-RIGHT ×4 (08:34→22:08)
[2022-08-05] MEDS: Nystatin Powder 15 GM BOTTLE 1 APPL TOPICAL ×2 (08:34→22:08)
[2022-08-05] MEDS: LORazepam 0.5 MG TABLET PO ×2 (08:43→22:22)
[2022-08-05 12:05] LABS: Glucose, Whole Blood 363 mg/dL (60-115)
--- NOTE | 2022-08-05 14:54 | HO.PM.IMPN ---
Subjective Subjective Date of Service: 08/05/22 Interval History: negative 12.2 L thus far off Lasix gtt using BiPAP at night breathing improved Review of Systems Review of Systems: Yes all other systems are reviewed and are negative Physical Exam Vital Signs: Vital Signs: Last Vital Signs Temp 97.3 F 08/05/22 11:00 Pulse 64 08/05/22 11:50 Resp 18 08/05/22 11:50 BP 134/60 08/05/22 11:00 Pulse Ox 100 08/05/22 11:00 O2 Del Method Nasal Cannula 08/05/22 11:00 O2 Flow Rate 6 08/05/22 11:00 FiO2 28 07/31/22 04:00 Oxygen Flow Rate 10 07/30/22 05:51 BMI result Body Mass Index 50.5 Gen: NAD HEENT: sclera anicteric, moist mucus membranes Neck: supple Lungs: diminished breath sounds L base, no wheezing Heart: regular rate and rhythm, no murmurs Abd: soft, morbidly obese, non-tender Ext: trace leg edema bilaterally Skin: warm/well-perfused Neuro: alert and oriented x3, no focal findings Psych: appropriate affect Objective Data Active Medications Albuterol/Ipratropium (Albuterol/Iprat 2.5/0.5mg 3 Ml Ampul.Neb) 3 ml INHALE RQ6H WHILE AWAKE PRN PRN Reason: shortness of breath Last Admin: 08/02/22 02:40 Dose: 3 ml Documented By: KERON Albuterol/Ipratropium (Albuterol/Iprat 2.5/0.5mg 3 Ml Ampul.Neb) 3 ml INHALE RQ4H WHILE AWAKE [facility] Last Admin: 08/05/22 11:46 Dose: 3 ml Documented By: REANNA Brimonidine Tartrate (Brimonidine Tartrate 0.2% Oph 5 Ml Bottle) 1 drop EYE-RIGHT BID [facility] Last Admin: 08/05/22 08:33 Dose: 1 drop Documented By: MARYSOL Bumetanide (Bumetanide 1 Mg Tablet) 2 mg PO BID@0800,1700 [facility]; Protocol Last Admin: 08/05/22 08:32 Dose: 2 mg Documented By: MARYSOL Chlordiazepoxide HCl (Chlordiazepoxide Hcl 5 Mg Capsule) 10 mg PO BEDTIME [facility] Last Admin: 08/04/22 21:20 Dose: 10 mg Documented By: ARABELLA Dorzolamide HCl (Dorzolamide Hcl 2 % Ophth Mona 10 Ml Drpbtl) 1 drop EYE-RIGHT BID [facility] Last Admin: 08/05/22 08:33 Dose: 1 drop Documented By: MARYSOL Escitalopram Oxalate (Escitalopram Oxalate 10 Mg Tablet) 10 mg PO DAILY [facility] Last Admin: 08/05/22 08:33 Dose: 10 mg Documented By: MARYSOL Heparin Sodium (Porcine) (Heparin Sodium,Porcine 5,000 Unit/Ml Vial) 5,000 unit SUBCUT Q8H [facility] Last Admin: 08/05/22 12:39 Dose: 5,000 unit Documented By: MARYSOL Insulin Glargine (Insulin Glargine,Hum.Rec.Anlog 100 Unit/Ml 10 Ml Vial) 12 unit SUBCUT BEDTIME [facility] Last Admin: 08/04/22 21:20 Dose: 12 unit Documented By: ARABELLA Insulin Human Lispro (Insulin Lispro 100 Unit/Ml 3 Ml Vial) 0 unit SUBCUT QIDACHS [facility]; Protocol Last Admin: 08/05/22 12:39 Dose: 10 unit Documented By: MARYSOL Latanoprost (Latanoprost 0.005 % Ophth Mona 2.5 Ml Drops) 1 drop EYE-BOTH BEDTIME [facility] Last Admin: 08/04/22 21:35 Dose: 1 drop Documented By: ARABELLA Levothyroxine Sodium (Levothyroxine Sodium 175 Mcg Tablet) 175 mcg PO DAILY@0600 [facility] Last Admin: 08/05/22 05:59 Dose: 175 mcg Documented By: AKIL Lorazepam (Lorazepam 0.5 Mg Tablet) 0.5 mg PO Q8H PRN PRN Reason: sever anxiety Last Admin: 08/05/22 08:43 Dose: 0.5 mg Documented By: MARYSOL Metoprolol Tartrate (Metoprolol Tartrate 50 Mg Tablet) 50 mg PO BID [facility]; Protocol Last Admin: 08/05/22 08:32 Dose: 50 mg Documented By: MARYSOL Pt Own (Calquence (100 Mg Tablet)) 100 mg PO Q12H [facility] Last Admin: 08/05/22 06:02 Dose: 100 mg Documented By: AKIL Nystatin (Nystatin Powder 15 Gm Bottle) 1 appl TOPICAL TID [facility]; Protocol Last Admin: 08/05/22 08:34 Dose: 1 appl Documented By: MARYSOL Polyethylene Glycol (Polyethylene Glycol 3350 17 Gm Powd.Pack) 17 gm PO DAILY [facility] Last Admin: 08/05/22 09:12 Dose: Not Given Documented By: MARYSOL Non-Admin Reason: Patient Refused Potassium Chloride (Potassium Chloride Er 20 Meq Tab.Er.Prt) 40 meq PO DAILY [facility] Last Admin: 08/05/22 08:33 Dose: 40 meq Documented By: MARYSOL Prednisolone Acetate (Prednisolone Acetate 1 % Oph Susp 5 Ml Drpbtl) 1 drop EYE-RIGHT QID [facility] Last Admin: 08/05/22 12:42 Dose: 1 drop Documented By: MARYSOL Senna (Sennosides 8.6 Mg Tablet) 17.2 mg PO DAILY PRN PRN Reason: Constipation Timolol Maleate (Timolol Maleate 0.5 % Oph Mona 5 Ml Drbtl) 1 drop EYE-RIGHT BID [facility] Last Admin: 08/05/22 08:33 Dose: 1 drop Documented By: MARYSOL Labs 08/02/22 06:20 08/05/22 07:05 Labs: Laboratory Results - last 24 hr 08/04/22 08/04/22 08/05/22 16:05 20:01 07:05 Anion Gap 14 Estim Creat Clear Calc 59.9 Estimated GFR 47 POC Glucose 260 H 322 H Random Glucose 279 H Calcium 8.5 Magnesium 1.9 B-Natriuretic Peptide 08/05/22 08/05/22 08/05/22 07:05 08:11 11:53 Anion Gap Estim Creat Clear Calc Estimated GFR POC Glucose 274 H 363 H* Random Glucose Calcium Magnesium B-Natriuretic Peptide 188 H Assessment and Plan (1) Hypothyroidism: Status: Acute (2) Acute on chronic respiratory failure with hypoxia and hypercapnia: Status: Acute (3) CHF exacerbation: Status: Acute Plan d#7 72yo F resident of [facility] with obesity, LATONYA, HFpEF, COPD presented 07/30/22 with worsening dyspnea, found to be hypoxic and hypercapneic and admitted to ICU for BiPAP support downgraded to [facility] 07/31/22 # acute/chronic hypoxic/hypercarbic respiratory failure due to CHF exacerbation - will trial off BiPAP tonight and recheck BMP/BNP/VBG in AM - changed furosemide gtt to PO bumetanide on 08/04 # large L pleural effusion - decreased with diuresis and too small to tap; was likely due to CHF. monitor respiratory status # hypoK - repleted # leukocytosis - attributed to chronic steroids, not currently on steroids, BCx negative, afebrile # HTN - continue metoprolol tartrate # DM2 - basal-bolus insulin # hypothyroidism - LT4 # mood disorder - chlordiazepoxide, escitalopram # CLL - continue acalabrutinib from home # VTE ppx: UFH # dispo: anticipate return to SNF in next 1-2d In my clinical judgment, the patient requires continued inpatient hospitalization for the following reasons: respiratory failure-requiring BiPAP Time Spent With Patient Time: Total time managing care of this patient today __40__ minutes. Quality Stroke Does the patient have a stroke diagnosis?: No VTE Prior VTE?: No VTE Risk Level:: Medical - moderate - high VTE Device Contraindication: Treatment Not Indicated VTE Drug Contraindication: N/A - Med Ordered
--- NOTE | 2022-08-05 16:21 | P.CDIM_ITS ---
PROVIDER RESPONSE TEXT: To clarify, the appropriate diagnosis supported by the clinical indicators: Pressure (decubitus) ulcer/injury Stage II right buttock QUERY TEXT: PHYSICIAN'S DOCUMENTATION REQUEST Date of Query: 08/03/2022 08:30 AM EDT Patient Name: Cindy Toney Admit Date: 07/30/2022 Dear Jud Talbert, A review of the medical record indicates additional documentation may be needed. Please review below and update the documentation accordingly. Clinical Indicators: Nursing notes Wound care assessment 08/01 - 08/02: Pressure injury/ulcer/right buttock Stage 2. Dry and intact Foam dressing applied. Based on the above, could you please provide further information regarding the ulcer/wound: Pressure (decubitus) ulcer/injury Stage II right buttock Other Unable to determine Other (explain) Clinically unable to determine (explain) Thank you, Krista Wright, CCS, CDIS Use of terms such as suspected, likely, concern for, or probable (associated with a specific diagnosi s that is being evaluated, monitored, or treated as if it exists) are acceptable and can be coded in the inpatient se tting, when documented at the time of discharge. Please use your independent medical judgment in providing your response. THIS QUERY IS PART OF THE PERMANENT MEDICAL RECORD
--- NOTE | 2022-08-05 16:21 | P.CDIM_ITS ---
PROVIDER RESPONSE TEXT: To clarify, the appropriate diagnosis supported by the clinical indicators: Hypernatremia or other etiology of lab findings QUERY TEXT: PHYSICIAN'S DOCUMENTATION REQUEST Date of Query: 08/03/2022 08:36 AM EDT Patient Name: Cindy Toney Admit Date: 07/30/2022 Dear Jud Talbert, A review of the medical record indicates additional documentation may be needed. Please review below and update the documentation accordingly. Clinical Indicators: LAB FINDINGS 08/02 - sodium 147 H Based on the above, is there a diagnosis that correlates with these lab findings: Hypernatremia or other etiology of lab findings Labs indicate a diagnosis of (please specify) Other Unable to determine Other (explain) Clinically unable to determine (explain) Thank you, Krista Wright, CCS, CDIS Use of terms such as suspected, likely, concern for, or probable (associated with a specific diagnosi s that is being evaluated, monitored, or treated as if it exists) are acceptable and can be coded in the inpatient se tting, when documented at the time of discharge. Please use your independent medical judgment in providing your response. THIS QUERY IS PART OF THE PERMANENT MEDICAL RECORD
[2022-08-05 16:46] LABS: Glucose, Whole Blood 225 mg/dL (60-115)
[2022-08-05 20:05] LABS: Glucose, Whole Blood 309 mg/dL (60-115)
--- NOTE | 2022-08-05 20:31 | PM.EVENT ---
Event Note Date of Service: 08/05/22 Event Note: Patient DVT study positive in the brachial vein a right upper extremity Given her admission for hypoxia will order CT angiogram of the chest to rule out PE Start her on Lovenox 1 milligram/kg b.i.d. Time Spent With Patient Time: Total time managing care of this patient today ____ minutes.
[2022-08-05 20:57] LABS: Hematocrit 31.7 % (37.0-47.0); Hemoglobin 9.6 g/dl (12.0-16.0); Mean Corpuscular HGB Conc 30.3 g/dl (31.0-35.0); Mean Corpuscular Hemoglobin 26.3 pg (27.0-33.0); Mean Corpuscular Volume 86.8 fL (80.0-98.0); Mean Platelet Volume 10.7 fL (9.4-12.3); Platelet Count 143 X10*3/uL (160-400); Red Blood Count 3.65 X10*6/uL (4.20-5.50); Red Cell Distribution Width 15.8 % (11.0-16.0); White Blood Count 12.5 X10*3/uL (4.8-10.8)
[2022-08-05] MEDS: chlordiazePOXIDE HCl 5 MG CAPSULE 10 MG PO (20:58)
[2022-08-05 21:07] LABS: Prothrombin Time 11.8 SEC (10.0-13.1)
[2022-08-05 21:09] LABS: Partial Thromboplastin Time 35.2 SEC (26.0-36.4)
[2022-08-05] MEDS: iohexoL 350 MG/ML 100 ML INFUS..BTL IV (21:51)
[2022-08-05] MEDS: Enoxaparin Sodium 150 MG/ML SYRINGE 135 MG SUBCUT (22:06)
[2022-08-05] MEDS: Insulin Glargine,Hum.rec.anlog 100 UNIT/ML 10 ML VIAL 12 UNIT SUBCUT (22:08)
[2022-08-05] MEDS: Latanoprost 0.005 % Ophth Sol 2.5 ML DROPS 1 DROP EYE-BOTH (22:13)
[2022-08-06] VITALS (7 sets, daily range): BP systolic 133–153; BP diastolic 60–66; PULSE 67–79; RESP 16–20; TEMP 36–36.8; O2SAT 96–100
[2022-08-06] MEDS: Levothyroxine Sodium 175 MCG TABLET PO (05:20)
[2022-08-06 07:05] LABS: VBG Base Excess 10.2 mmol/L; VBG HCO3 34 mmol/L (22-26); VBG pCO2 47 mmHg; VBG pH 7.47 (7.32-7.43); VBG pO2 71 mmHg
[2022-08-06 07:06] LABS: Hemoglobin 9.9 g/dl (12.0-16.0); Mean Corpuscular Hemoglobin 26.5 pg (27.0-33.0); Mean Corpuscular Volume 88.5 fL (80.0-98.0); Mean Platelet Volume 11.6 fL (9.4-12.3); Platelet Count 143 X10*3/uL (160-400); Red Blood Count 3.73 X10*6/uL (4.20-5.50); Red Cell Distribution Width 15.8 % (11.0-16.0); White Blood Count 12.4 X10*3/uL (4.8-10.8)
[2022-08-06 07:06] LABS: Venous Blood Gas Refer to POC result
[2022-08-06] MEDS: Albuterol/Iprat 2.5/0.5MG 3 ML AMPUL.NEB INHALE ×3 (08:05→15:12)
[2022-08-06 08:06] LABS: Glucose, Whole Blood 331 mg/dL (60-115)
[2022-08-06 08:23] LABS: Anion Gap 16 (12-20); Blood Urea Nitrogen 41 mg/dL (9-16); Calcium 8.7 mg/dL (8.4-10.2); Carbon Dioxide 27 mmol/L (22-29); Chloride 101 mmol/L (96-108); Creatinine Clr Calc Pharmacy 60.9; Estimated Glomerular Filt Rate 48; Glucose Random 303 mg/dL (60-115); Potassium 3.7 mmol/L (3.3-5.1); Sodium 140 mmol/L (135-145)
[2022-08-06] MEDS: Bumetanide 1 MG TABLET 2 MG PO (08:32)
[2022-08-06] MEDS: Insulin Lispro 100 UNIT/ML 3 ML VIAL SUBCUT ×2 (08:32→12:11)
[2022-08-06] MEDS: Escitalopram Oxalate 10 MG TABLET PO (08:32)
[2022-08-06] MEDS: Brimonidine Tartrate 0.2% Oph 5 ML BOTTLE 1 DROP EYE-RIGHT (08:33)
[2022-08-06] MEDS: Potassium Chloride ER 20 MEQ TAB.ER.PRT 40 MEQ PO (08:33)
[2022-08-06] MEDS: Metoprolol Tartrate 50 MG TABLET PO (08:33)
[2022-08-06] MEDS: Nystatin Powder 15 GM BOTTLE 1 APPL TOPICAL (08:33)
[2022-08-06] MEDS: timoloL maleate 0.5 % Oph Sol 5 ML DRBTL 1 DROP EYE-RIGHT (08:33)
[2022-08-06] MEDS: Dorzolamide HCl 2 % Ophth Sol 10 ML DRPBTL 1 DROP EYE-RIGHT (08:33)
[2022-08-06] MEDS: prednisoLONE Acetate 1 % Oph Susp 5 ML DRPBTL 1 DROP EYE-RIGHT ×2 (08:33→12:12)
--- NOTE | 2022-08-06 10:20 | P.DS_ITS ---
DS: Providers Provider Date of Service: 08/06/22 Date of admission: 07/30/22 12:26 Primary care physician: Tam Corea MD DS: Diagnosis Discharge Diagnosis (1) Hypothyroidism: Status: Acute (2) Acute on chronic respiratory failure with hypoxia and hypercapnia: Status: Acute (3) CHF exacerbation: Status: Acute DS: Summary Hospital Course Hospital Course: Chief Complaint: ? Shortness of breath 72-year-old lady with underlying obesity, obstructive sleep diastolic dysfunction, COPD to 3 with multiple admissions for acute on chronic respiratory failure 07/30/2022 for complains of slowly worsening dyspnea over several days.? On ER evaluation patient not to be hypoxic and hypercapnic requiring BiPAP.? She was started on diuretic and admitted to the intensive care unit. Hospital course: 72yo F resident of [facility] with obesity, LATONYA, HFpEF, COPD presented 07/30/22 with worsening dyspnea, found to be hypoxic and hypercapneic and admitted to ICU for BiPAP support and IV diuretics downgraded to [facility] 07/31/22, noed to have DVT in the arm # acute/chronic hypoxic/hypercarbic respiratory failure due to CHF exacerbation--Was on BiPAP while in the ICU and has been succesfully taking off, did fine overnight without BiPAP, VBG looks ok #Acute on chronic HFpEF-Previously on Lasix, was on IV Lasix drip in the ICU and has been switched to to PO bumetanide 2 mg twice daily on 08/04 # large L pleural effusion - decreased with diuresis and too small to tap; was likely due to CHF. monitor respiratory status # hypoKalemai--ralted to diuretics and has been on Suplemental KCL of 40 mg daily, presently potassium is 3.7, low was 3 # leukocytosis - attributed to chronic steroids,, BCx negative, afebrile # HTN - continue metoprolol tartrate # DM2 -continue sliding scale insulin # hypothyroidism--cotinue levothyroxine #DVT--There is deep venous thrombus in the right brachial vein extending from the proximal to distal upper arm, which in some areas appears occlusive and in others nonocclusive. Was given a dose of Lovenox and started on Apixiban 10 mg twice daily for 7 days followed by 5 twice daily thereafter, and should follow up with her oncologist for duration of therapy for at least 3 months # mood disorder - chlordiazepoxide, escitalopram # CLL - continue acalabrutinib from home Time Spent with Patient Time attestation: Total time managing care of this patient today ____ minutes. Discharge coordination time: Greater than 30 minutes Quality: Safe Use of Opioids Does Pt have an Active Cancer Diagnosis on the Problem List?: No Quality: Stroke Does the patient have a stroke diagnosis?: No Physical Exam Vital Signs: Vital Signs: Last Vital Signs Temp 96.8 F 08/06/22 08:16 Pulse 74 08/06/22 08:16 Resp 16 08/06/22 08:16 BP 149/66 H 08/06/22 08:16 Pulse Ox 99 08/06/22 08:16 O2 Del Method Nasal Cannula 08/06/22 08:16 O2 Flow Rate 4 08/06/22 08:16 FiO2 28 07/31/22 04:00 Oxygen Flow Rate 10 07/30/22 05:51 BMI result Body Mass Index 50.5 Const: Other: General: AO X 3, no acute distress Resp: CTA bilateral CVS: S1,S2,RRR GI: +BS, NT, no distention Skin: No rash, swelling of right upper extremity Neuro: motor grossly intact Psych: appropriate affect DS: Data Data Completed and Pending Completed studies during hospitalization [Text1]: Procedures Assistance with Respiratory Ventilation, Less than 24 Consecutive Hours, Continuous Positive Airway Pressure (04/28/22) Drainage of Left Main Bronchus, Via Natural or Artificial Opening Endoscopic, Diagnostic (11/19/21) Drainage of Left Pleural Cavity, Percutaneous Approach (11/19/21) Drainage of Right Main Bronchus, Via Natural or Artificial Opening Endoscopic, Diagnostic (11/19/21) Drainage of Right Pleural Cavity, Percutaneous Approach (11/19/21) Excision of Right Inguinal Lymphatic, Percutaneous Approach, Diagnostic (11/19/21) Excision of Thorax Lymphatic, Percutaneous Endoscopic Approach, Diagnostic (11/19/21) Insertion of Endotracheal Airway into Trachea, Via Natural or Artificial Opening (11/19/21) Insertion of Infusion Device into Superior Vena Cava, Percutaneous Approach (11/19/21) Inspection of Tracheobronchial Tree, Via Natural or Artificial Opening Endoscopic (11/19/21) Introduction of Remdesivir Anti-infective into Peripheral Vein, Percutaneous Approach, [employer] (10/11/21) Introduction of Vasopressor into Central Vein, Percutaneous Approach (11/19/21) Respiratory Ventilation, Greater than 96 Consecutive Hours (11/19/21) Ultrasonography of Superior Vena Cava, Guidance (11/19/21) Pending studies at discharge: Pending at discharge 08/02/22 15:29 Cytology [PTH] Routine Labs on day of discharge: Laboratory Results - last 24 hr 08/05/22 08/05/22 08/05/22 11:53 16:42 20:00 WBC RBC Hgb Hct MCV MCH MCHC RDW Plt Count MPV Absolute Nucleated RBC Nucleated RBC % (auto) PT INR APTT VBG pH VBG pCO2 VBG pO2 VBG HCO3 VBG O2 Saturation VBG Base Excess Sodium Potassium Chloride Carbon Dioxide Anion Gap BUN Creatinine Estim Creat Clear Calc Estimated GFR POC Glucose 363 H* 225 H 309 H Random Glucose Calcium 08/05/22 08/05/22 08/06/22 20:46 20:46 06:54 WBC 12.5 H RBC 3.65 L Hgb 9.6 L Hct 31.7 L MCV 86.8 MCH 26.3 L MCHC 30.3 L RDW 15.8 Plt Count 143 L MPV 10.7 Absolute Nucleated RBC 0.000 Nucleated RBC % (auto) 0.0 PT 11.8 INR 1.0 APTT 35.2 VBG pH VBG pCO2 VBG pO2 VBG HCO3 VBG O2 Saturation VBG Base Excess Sodium 140 Potassium 3.7 Chloride 101 Carbon Dioxide 27 Anion Gap 16 BUN 41 H Creatinine 1.11 Estim Creat Clear Calc 60.9 Estimated GFR 48 POC Glucose Random Glucose 303 H Calcium 8.7 08/06/22 08/06/22 08/06/22 06:54 06:58 08:03 WBC 12.4 H RBC 3.73 L Hgb 9.9 L Hct 33.0 L MCV 88.5 MCH 26.5 L MCHC 30.0 L RDW 15.8 Plt Count 143 L MPV 11.6 Absolute Nucleated RBC 0.000 Nucleated RBC % (auto) 0.0 PT INR APTT VBG pH 7.47 H VBG pCO2 47 VBG pO2 71 VBG HCO3 34 H VBG O2 Saturation 95.0 VBG Base Excess 10.2 Sodium Potassium Chloride Carbon Dioxide Anion Gap BUN Creatinine Estim Creat Clear Calc Estimated GFR POC Glucose 331 H Random Glucose Calcium Discharge Plan Discharge Anticipated Discharge Date/Time: 08/06/22 10:29 Patient Disposition: Xfer SNF Discharge Diagnosis: acute on chronic hypoxic respiratory failure, DVT Of the R Referrals: [facility] [Outside] - 1 Day (RESUMPTION OF CARE) Tam Corea MD [Primary Care Provider] - 1 Week Maribell Ruiz MD [Physician] - 2 Weeks Discharge Medications: New potassium chloride 20 mEq Tablet,Er Particles/Crystals 40 meq PO DAILY Qty: 30 0RF bumetanide 1 mg Tablet 2 mg PO BID@0800,1700 Qty: 60 0RF Protocol: Hold for SBP< HOLD for SBP < : 90 Eliquis DVT-PE Treat 30D Start 5 mg (74 tabs) tablets,dose pack See Rx Instructions .ROUTE .COMPLEX Qty: 74 0RF Rx Instructions: Take 2 tabs (10 mg ) twice daily for 7 days, then take 1 tab (5 mg) twice daily for Continued levothyroxine 175 mcg tablet 175 mcg PO DAILY@0600 citalopram 20 mg tablet 40 mg PO DAILY simvastatin 20 mg tablet 20 mg PO BEDTIME chlordiazepoxide HCl 10 mg capsule 10 mg PO BEDTIME insulin lispro protamin-lispro 100 unit/mL (75-25) insulin pen 0 unit subcut TIDAC Protocol: Insulin Correction Scale Less than or equal to 110 ---- Give (units): 0 111 to 150 Give (units): 0 151 to 200 Give (units): 2 201 to 250 Give (units): 4 251 to 300 Give (units): 6 301 to 350 Give (units): 8 Greater than 350 Give (units): 10 Call MD if Blood Glucose > : 350 Januvia 100 mg tablet 100 mg PO DAILY Calquence (acalabrutinib mal) 100 mg Tablet 100 mg PO Q12H Qty: 60 3RF Fleet Enema 19-7 gram/118 mL Enema 118 ml NC BEDTIME PRN (Reason: Constipation) guaifenesin 600 mg Tablet Extended Release 12hr 600 mg PO BID acetaminophen [Tylenol] 325 mg Tablet 650 mg PO Q4H PRN (Reason: Pain (Scale Score 4-6)) prednisone 10 mg Tablet 8 mg PO DAILY polyethylene glycol 3350 [Miralax] 17 gram/dose Powder 17 g PO DAILY amlodipine 10 mg tablet 10 mg PO DAILY Incruse Ellipta 62.5 mcg/actuation Blister With Device 1 inh INHALATION DAILY budesonide-formoterol [Symbicort] 160-4.5 mcg/actuation Hfa Aerosol Inhaler 2 puff INHALATION BID diclofenac sodium 1 % Gel 4 g TOPICAL QID Rx Instructions: apply to single knee, ankle, foot; for foot includes sole/toes/top of foot latanoprost 0.005 % drops 1 drp ophthalmic (eye) BEDTIME albuterol sulfate 0.63 mg/3 mL Solution For Nebulization 0.63 mg INHALATION Q4-6H PRN (Reason: Wheezing) sennosides [senna] 8.6 mg Tablet 17.2 mg PO DAILY PRN (Reason: Constipation) fyirqrphbs-fthdbjrzywprq-haix 50-325-40 mg tablet 1 tab PO QID PRN (Reason: Pain) prednisolone acetate 1 % drops,suspension 1 drp ophthalmic-Right QID metoprolol tartrate 50 mg Tablet 50 mg PO BID timolol maleate 0.5 % drops 1 drp ophthalmic-Right BID coenzyme Q10 [CoQ-10] 100 mg Capsule 50 mg PO DAILY melatonin 5 mg Tablet 5 mg PO BEDTIME PRN (Reason: Sleep) Simbrinza 1-0.2 % drops,suspension 1 drp ophthalmic-Right BID insulin glargine [Lantus Solostar U-100 Insulin] 100 unit/mL (3 mL) insulin pen 20 unit subcut BID Hold Instructions: Resume on 05/10/22. Artificial Tears (cmc) 1 % Drops 1 drp OPHTHALMIC (EYE) BID levalbuterol HCl 1.25 mg/3 mL Solution For Nebulization 1.25 mg INHALATION QID Discontinued furosemide 40 mg tablet 60 mg PO DAILY Discharge Orders: Discharge Order (Routine); Ordered 08/06/22 Ordered By: Cameron Toribio Diet: Diabetic diet Activity on Discharge: As tolerated Stand Alone Forms: Patient Portal Discharge page Care Plan Goals: full recovery from heart failure, acute on chronic respiratory failure and DVT. Health Concerns: Chronic respiratory failure chronic heart failure hypokalemia iDVT in the arm Plan of Treatment: take Bumex as directed in place of an Lasix for heart failure take potassium supplementation to correct potassium level take Eliquis as directed 10 mg twice daily for 7 days followed by 5 mg twice daily for at least 3 months (Follow up with Dr. Ruiz) in 1 to 2 weeks for this Assessment: see above
[2022-08-06 11:58] LABS: Glucose, Whole Blood 360 mg/dL (60-115)
[2022-08-06] MEDS: Apixaban 5 MG TABLET 10 MG PO (12:11)
--- NOTE | 2022-08-06 12:33 | MHC.CLN ---
F/U PO INTAKE IMPROVED 75-100% DIET RX: 2200DM-APPROPRIATE PT RECEIVING ENSURE MAX BID TO PROVIDE 300KCALS, 60G PROTEIN CONTINUE TO MONITOR PO INTAKE CLOSELY
--- NOTE | 2022-08-06 13:18 | MHC.CM.PN ---
IMM DELIVERED TO BEDSIDE, PT MEDICALLY CLEARED FOR D/C BACK TO [facility] FOR BLS TRANSPORT
[2022-08-06] MEDS: LORazepam 0.5 MG TABLET PO (15:00)
[2022-08-06 15:08] LABS: COVID-19 Test Negative (Negative); IDNOW Serial# BCCEAD1C
--- NOTE | 2022-08-06 17:04 | PC.NURSE ---
pt A&O x 4, vitals stable. IV out, monitor off, belongings packed and given to pt/ EMS. pt to be transported to receiving facility. nurse to nurse report given to
== END 2022-08-06 17:00 | disposition skilled nursing facility (03) | DRG 291 ==
LOC: HO.ED 08:12 → HO.EDOVER 12:31 → HO.ICU 12:44 → HO.IMC 07-31 10:38
PROVIDERS: Family Medicine; Hospitalist; Internal Medicine; Physician Assistant Medical; Radiology Diagnostic Radiology; Admitting Provider Internal Medicine Pulmonary Disease; Emergency Provider Internal Medicine; PCP Internal Medicine; Visit Provider Internal Medicine
DX: I11.0 Hypertensive heart disease with heart failure (principal); I50.33 Acute on chronic diastolic (congestive) heart failure; J96.21 Acute and chronic respiratory failure with hypoxia; J96.22 Acute and chronic respiratory failure with hypercapnia; C91.10 Chronic lymphocytic leukemia of B-cell type not having achieved remission; Z68.43 Body mass index [BMI] 50.0-59.9, adult; T82.818A Embolism due to vascular prosthetic devices, implants and grafts, initial encounter; I82.621 Acute embolism and thrombosis of deep veins of right upper extremity; E87.0 Hyperosmolality and hypernatremia; G93.2 Benign intracranial hypertension; E66.01 Morbid (severe) obesity due to excess calories; G47.33 Obstructive sleep apnea (adult) (pediatric); E03.9 Hypothyroidism, unspecified; F41.9 Anxiety disorder, unspecified; E87.6 Hypokalemia; Y74.1 Therapeutic (nonsurgical) and rehabilitative general hospital and personal-use devices associated with adverse incidents; L89.312 Pressure ulcer of right buttock, stage 2; Z20.822 Contact with and (suspected) exposure to COVID-19; Z99.81 Dependence on supplemental oxygen; Z98.2 Presence of cerebrospinal fluid drainage device; Z87.891 Personal history of nicotine dependence; Z79.4 Long term (current) use of insulin; Z79.890 Hormone replacement therapy; Z79.899 Other long term (current) drug therapy
CPT/HCPCS: 36415; 71045; 71275; 76604; 80048; 80053; 81003; 82040; 82803; 82947; 83605; 83615; 83735; 83880; 84100; 84484; 85025; 85027; 85610; 85730; 87040; 87633; 87635; 93005; 93971; 94640; 94660; 99285; C1758; J0696; J1643; J1650; J1940; J2930; P9047; Q9967

== ENCOUNTER 2022-10-27 19:48 | Inpatient (IN) | payer MEDICARE, MEDICAID, SELFPAY ==
--- NOTE | ~2022-10-27 | CT_ITS ---
EXAMINATION: CT ABDOMEN AND PELVIS WITHOUT CONTRAST CLINICAL INFORMATION: Acute kidney injury COMPARISON: 11/19/2021 TECHNIQUE: Multidetector volumetric imaging was performed from the superior aspect of the liver through the pubic symphysis. Sagittal and coronal reformatted images were obtained on the technologist's workstation. This CT examination was performed using dose optimization techniques as appropriate, variously including the following: *Automated exposure control *Adjustment of mA and/or kV according to patient size (this includes techniques or standardized protocols for targeted exams where dose is matched to indication/reason for exam; i.e. extremities or head) *Use of iterative reconstruction technique DLP: 1235 mGy-cm FINDINGS: LUNG BASES: Bibasilar atelectasis. Mitral annular calcification. Small pleural effusions. LIVER, GALLBLADDER, AND BILIARY TREE: The liver is normal in size, shape, and attenuation. No focal hepatic lesion or biliary ductal dilatation is present. The gallbladder is not seen and is likely absent. PANCREAS: Unremarkable. SPLEEN: Unremarkable. ADRENAL GLANDS: Unremarkable. KIDNEYS AND URETERS: The kidneys are normal in size, shape, and attenuation. Mild left hydronephrosis noted. No calculi. BLADDER: Unremarkable. GASTROINTESTINAL TRACT: The stomach is unremarkable. Normal caliber small bowel. No obstruction. No colonic wall thickening or inflammation. Catheter noted in the anterior lower abdomen. No free air or free fluid. ABDOMINAL WALL: Diffuse abdominal wall laxity. Anasarca. LYMPH NODES: Normal. VASCULAR: Normal caliber aorta with moderate to severe atherosclerotic calcification. PELVIC VISCERA: Uterus not seen. No adnexal mass. OSSEOUS STRUCTURES: No acute or suspicious osseous abnormality. Mild degenerative changes of the spine. CT/CT abdomen pelvis wo IV con IMPRESSION: 1. Mild left hydronephrosis. No calculi. 2. Small pleural effusions. Fleischner guidelines were followed.
--- NOTE | ~2022-10-27 | XR_ITS ---
EXAMINATION: XR CHEST CLINICAL INFORMATION: Shortness of breath. COMPARISON: 08/02/2022 chest radiograph. TECHNIQUE: Frontal view of the chest was obtained. FINDINGS: Rotated positioning is suboptimal. There are increased pulmonary vascular markings. Mild to moderate opacification is seen in the left lower lung. The heart and mediastinal structures are unremarkable. XR/XR chest 1V IMPRESSION: CHF and small to moderate left pleural effusion. The left pleural effusion is improved compared to the previous study.
--- NOTE | ~2022-10-27 | XR_ITS ---
EXAMINATION: XR CHEST CLINICAL INFORMATION: Shortness of breath COMPARISON: 10/30/2022 TECHNIQUE: Frontal view of the chest was obtained. FINDINGS: Continued opacities left base. Some mildly increasing right basilar medial opacity. Findings which may also be consistent with an element of pulmonary edema The catheter is been removed. XR/XR chest 1V IMPRESSION: Catheter removed. No pneumothorax. Continued left basilar opacity and some increasing opacity at the right medial base with overall increased markings in lungs which may be consistent with an element of pulmonary interstitial edema
--- NOTE | ~2022-10-27 | US_ITS ---
EXAMINATION: US VENOUS ULTRASOUND WITH DOPPLER LOWER EXTREMITY, RIGHT CLINICAL INFORMATION: Edema COMPARISON: Bilateral lower extremity DVT 09/09/2016 TECHNIQUE: Ultrasound of the deep veins is performed from the hip to the calf with compression sonography and color and pulse Doppler assessment. Spectral analysis with color-flow imaging is performed. FINDINGS: There is normal venous compression and respiratory variation and augmented flow. The visualized common femoral vein, superficial femoral vein, profunda femoral vein, popliteal vein, and the posterior tibial vein shows no evidence of deep venous thrombosis. The right peroneal vein was not identified limiting evaluation. There is no significant popliteal fossa cyst. If the patient's symptoms persist, followup ultrasound in 5 days 7 days might be of value to exclude proximal propagation from a non-visualized calf vein. US/US venous duplex LE RT IMPRESSION: No DVT demonstrated in the visualized right lower extremity, however the peroneal vein was not identified limiting evaluation.
--- NOTE | ~2022-10-27 | FL_ITS ---
EXAMINATION: XR FLUOROSCOPY WITH IMAGES CLINICAL INFORMATION: Cystoscopy, bilateral retrograde. Left stent placement. COMPARISON: None available. TECHNIQUE: Fluoroscopy Supervised By: Dr. Juan Silveira. Fluoroscopy Time: 63.4 seconds. Cumulative Dose: 16.29 mGy. DAP: Gycm2. Images: 4. FINDINGS: Fluoroscopy guidance for retrograde exam and bilateral internal ureteral stents. FL/FL guidance in OR IMPRESSION: Fluoroscopic guidance for bilateral internal ureteral stents.
--- NOTE | ~2022-10-27 | US_ITS ---
EXAMINATION: US RETROPERITONEAL LIMITED (RENAL ONLY) CLINICAL INFORMATION: Rule out obstruction. COMPARISON: CT abdomen and pelvis 10/28/2022. Ultrasound abdomen complete 10/23/2017. TECHNIQUE: Real-time imaging of the kidneys. FINDINGS: RIGHT KIDNEY: 12.2 x 6.2 x 4.5 cm (SAG x AP x TRV). The kidney is normal in size, contour, and echogenicity. Renal cortical thickness is normal. No calculi or focal parenchymal lesions. No hydronephrosis LEFT KIDNEY: 10.6 x 6.4 x 4.8 cm (SAG x AP x TRV). The kidney is normal in size, contour, and echogenicity. Renal cortical thickness is normal. No renal calculi or focal parenchymal lesions. There is mild hydronephrosis. On review of CT scan of same day there is question of a 5 mm filling defect in the region of transition from dilated ureter to decompressed ureter on axial image [address] series #3. This could represent a faintly radiopaque calculus however mass of other etiology cannot be excluded. On the CT scan previously noted retroperitoneal lymph nodes are again noted with most appearing less prominent from study of November 19, 2021. US/US renal BI IMPRESSION: Mild left hydronephrosis. Question region of mildly increased density and transition in size of the left ureter which may represent mass or possible minimally radiopaque calculus. Retrograde cystoureterography may be of help in further evaluation. .
--- NOTE | ~2022-10-27 | XR_ITS ---
EXAMINATION: XR CHEST CLINICAL INFORMATION: CVC placement COMPARISON: 10/27/2022 TECHNIQUE: Frontal view of the chest was obtained. FINDINGS: Right IJ central line tip lies in the region of the upper SVC. Lung volumes are symmetric. Persistent dense retrocardiac opacity and diffuse interstitial prominence overall similar to prior. Small left pleural effusion cannot be excluded. No evidence of pneumothorax. Cardiac silhouette remains enlarged. Calcification is present at the aortic arch. No acute osseous findings are seen. XR/XR chest 1V IMPRESSION: Right IJ central line tip in the region of the upper SVC. Persistent dense retrocardiac opacity and diffuse interstitial prominence suggesting a degree of interstitial edema, similar to prior.
--- NOTE | 2022-10-27 19:53 | ED.GENADULT ---
HPI - General Adult General Chief complaint: Altered Mental Status Stated complaint: Low heart rate in 30's Time Seen by Provider: 10/27/22 19:53 History of Present Illness HPI narrative: Patient is 72 years old from skilled nursing with history of chronic respiratory failure with hypoxia hypertension hypokalemia diabetes congestive heart failure , brought by EMS from skilled nursing for increased lethargic on arrival patient's heart rate was in 30s blood sugar was 447 saturating 96% on 2 L oxygen blood pressure did drop to 70/30 received 0.5 mg of atropine and heart rate improved to 50s patient is on Eliquis for DVT in right brachial vein started on 08/24 Related Data Home Medications Medication Instructions Recorded Confirmed chlordiazepoxide HCl 10 mg capsule 10 mg PO BEDTIME 10/08/21 10/27/22 citalopram 20 mg tablet 40 mg PO DAILY 10/08/21 10/27/22 insulin lispro protamine-lispro 0 unit subcut QIDACHS 10/08/21 10/27/22 100 unit/mL (75-25) subcutaneous pen levothyroxine 175 mcg tablet 175 mcg PO DAILY@0600 10/08/21 10/27/22 simvastatin 20 mg tablet 20 mg PO BEDTIME 10/08/21 10/27/22 sitagliptin phosphate 100 mg 100 mg PO DAILY 10/08/21 10/27/22 tablet (Januvia) latanoprost 0.005 % eye drops 1 drp ophthalmic (eye) BEDTIME 11/20/21 10/27/22 albuterol sulfate 0.63 mg/3 mL 0.63 mg inhalation Q2H PRN Wheezing 02/16/22 10/27/22 solution for nebulization brinzolamide 1 %-brimonidine 0.2 % 1 drp ophthalmic-Right BID 02/16/22 10/27/22 eye drops,suspension (Simbrinza) vnvhyestze-prtpufposjmit-kswdzmux 1 tab PO Q6H PRN Headache 02/16/22 10/27/22 50 mg-325 mg-40 mg tablet coenzyme Q10 100 mg capsule 150 mg PO DAILY 02/16/22 10/27/22 (CoQ-10) insulin glargine 100 unit/mL (3 16 unit subcut BID 02/16/22 10/27/22 mL) subcutaneous pen (Lantus Solostar U-100 Insulin) melatonin 5 mg tablet 5 mg PO BEDTIME 02/16/22 10/27/22 metoprolol tartrate 50 mg tablet 50 mg PO BID 02/16/22 10/27/22 prednisolone acetate 1 % eye 1 drp ophthalmic-Right DAILY 02/16/22 10/27/22 drops,suspension sennosides 8.6 mg tablet (senna) 17.2 mg PO DAILY PRN Constipation 02/16/22 10/27/22 timolol maleate 0.5 % eye drops 1 drp ophthalmic-Right BID 02/16/22 10/27/22 carboxymethylcellulose sodium 1 % 1 drp ophthalmic (eye) BID 03/15/22 10/27/22 eye drops (Artificial Tears (carboxymethylcellulose)) budesonide-formoterol HFA 160 2 puff inhalation BID 04/27/22 10/27/22 mcg-4.5 mcg/actuation aerosol inhaler (Symbicort) umeclidinium 62.5 mcg/actuation 1 inh inhalation DAILY 04/27/22 10/27/22 blister powder for inhalation (Incruse Ellipta) acetaminophen 325 mg tablet 650 mg PO Q4H PRN Pain (Scale 06/08/22 10/27/22 (Tylenol) Score 4-6) amlodipine 10 mg tablet 10 mg PO DAILY high blood pressure 06/08/22 10/27/22 guaifenesin 600 mg tablet, 600 mg PO BID cough 06/08/22 10/27/22 extended release 12 hr polyethylene glycol 3350 17 17 g PO BID 06/08/22 10/27/22 gram/dose oral powder (Miralax) sodium phosphates 19 gram-7 118 ml FL BEDTIME PRN Constipation 06/08/22 10/27/22 gram/118 mL enema (Fleet Enema) levalbuterol HCl 1.25 mg/3 mL 1.25 mg inhalation QID 07/30/22 10/27/22 solution for nebulization biotin 5 mg tablet 5 mg PO DAILY 08/11/22 10/27/22 bisacodyl 10 mg rectal suppository 10 mg FL DAILY PRN Constipation 08/11/22 10/27/22 guaifenesin 100 mg/5 mL oral liquid 200 mg PO Q4H PRN Pain (Scale 08/11/22 10/27/22 Score 1-3) hydroxychloroquine 200 mg tablet 200 mg PO BID 08/11/22 10/27/22 hydroxyzine HCl 25 mg tablet 25 mg PO DAILY 08/11/22 10/27/22 lorazepam 0.5 mg tablet 0.5 mg PO BID PRN Anxiety 08/11/22 10/27/22 magnesium 200 mg tablet 400 mg PO DAILY 08/11/22 10/27/22 riboflavin (vitamin B2) 400 mg 400 mg PO DAILY 08/11/22 10/27/22 tablet diphenhydramine-zinc acetate 2 1 appl topical BID 10/27/22 10/27/22 %-0.1 % topical cream nystatin 100,000 unit/gram topical 1 appl topical BID 10/27/22 10/27/22 powder prednisone 1 mg tablet 6 mg PO DAILY 10/27/22 10/27/22 sennosides 8.6 mg-docusate sodium 1 tab-cap PO DAILY 10/27/22 10/27/22 50 mg tablet (Senna-S) Previous Rx's Medication Instructions Recorded bumetanide 1 mg tablet 2 mg PO BID@0800,1700 #60 tabs 08/06/22 potassium chloride 20 mEq 40 meq PO DAILY #30 tabs 08/06/22 tablet,extended release(part/cryst) acalabrutinib maleate 100 mg 100 mg PO Q12H #60 tabs 10/11/22 tablet (Calquence (acalabrutinib maleate)) Allergies Allergy/AdvReac Type Severity Reaction Status Date / Time oxycodone [From Percocet] Allergy Intermediate Rash Verified 04/27/22 11:42 lisinopril Allergy Unknown Unknown Verified 04/27/22 11:42 Review of Systems Review of Systems: Yes all other systems are reviewed and are negative PMF Past Medical History Medical History Acute respiratory failure Chronic lymphocytic leukemia (CLL), B-cell CKD (chronic kidney disease) CLL (chronic lymphocytic leukemia) Congestive heart failure Congestive heart failure COVID COVID-19 Diabetes mellitus with insulin therapy Dyspnea Essential hypertension HLD (hyperlipidemia) HTN (hypertension) Hypothyroidism Hypoxia Infection with ESBL Klebsiella oxytoca Influenza A Klebsiella pneumonia Lower extremity edema Lymphadenopathy, mediastinal Migraine Obesity Pleural effusion Pleural effusion Pneumonia due to COVID-19 virus Pseudotumor cerebri PVD (peripheral vascular disease) Suspected deep tissue injury Surgical History H/O cataract extraction H/O hysterectomy for benign disease Hx of cholecystectomy S/P appendectomy Family History Family History Mother Heart attack, Onset Age: 92 Father Heart attack, Onset Age: 66 Other Diabetes Social History Social History Household Members: Family Household Members Other:: patient came from a rehab facility, been there since dec Housing: [facility] Do you presently have visiting nurse or other home services: No Alcohol intake: never Patient Tobacco Use Status: Former Tobacco user Smoked in Last 30 Days: No Use of substances other than those prescribed or required for medical reasons: No Advance Directives: Yes Advance Directives on File: Yes Advance Directives Date on File: 09/26/20 service: No Current occupational status: disabled Physical Exam ED Vital Signs: Vital Signs - 24 hr 10/27/22 20:01 10/27/22 20:09 10/27/22 22:52 Temperature 97.9 F Pulse Rate 44 L 35 L 35 L Respiratory Rate 16 19 Blood Pressure 76/27 L 104/33 L 108/36 L Pulse Oximetry 96 95 Oxygen Delivery Method Nasal Cannula Nasal Cannula Room Air BMI result Body Mass Index 45.5 Appearance: Alert. Oriented X3. Looks sick and pale Eyes: PERRLA, No Nystagmus ENT: Pharynx normal. Oral Mucosa moist Neck: Normal inspection. Neck supple. CVS: Normal heart rate and rhythm. Pulses normal. Respiratory: No respiratory distress. Equal air entry bilateral, no wheezing/rales/rhonchi Abdomen: Soft and nontender. Bowel sounds are present, no mass palpable, no CVA tenderness Skin: Skin warm and dry. Normal skin color. Normal skin turgor. Extremities: No lower extremity edema. No calf tenderness chronic dermatitis changes Neuro: Oriented X 3. No motor deficit. No sensory deficit.No cerebellar signs , cranial nerves II-XII intact Course Reevaluation(s) Reevaluation #1: I received a call from the lab who reports that patient's potassium is 7 and creatinine is 4.59 which likely is the reason for patient's significant first-degree heart block and bradycardia. The elevated troponin is likely secondary to this creatinine derangement, patient will receive calcium gluconate/D 50/5 units of insulin/10 mg of Lokelma. I will repeat the basic metabolic panel afterwards, inpatient hospitalist was updated. Time: 21:54 Reevaluation #2: Repeat BMP, stool guaiac is negative and I suspect that patient's drop in hemoglobin is likely secondary to underlying CLL, CHF exacerbation is present and patient will receive 60 mg of Lasix which will help with potassium control. I am claiming 45 minutes of critical care time. I personally attest to this time spent taking care of the patient. Time: 22:40 Medications Administered Generic Name Dose Route Start Last Admin Trade Name Freq PRN Reason Stop Dose Admin Heparin Sodium (Porcine) 5,000 unit 10/28/22 01:15 10/28/22 02:21 Heparin Sodium,Porcine 5,000 Unit/Ml Vial SUBCUT 5,000 unit Q12H ALAN Administration Discontinued Medications Generic Name Dose Route Start Last Admin Trade Name Freq PRN Reason Stop Dose Admin Albuterol/Ipratropium 3 ml 10/28/22 00:13 10/28/22 01:23 Albuterol/Iprat 2.5/0.5mg 3 Ml Ampul.Neb INHALE 10/28/22 00:14 3 ml ONCE ONE Administration Dextrose 25 gm 10/27/22 21:47 10/27/22 22:05 Dextrose 50 % 25 Gm/50 Ml Syringe IVPUSH 10/27/22 21:48 25 gm ONCE ONE Administration Dextrose 25 gm 10/28/22 00:13 10/28/22 00:46 Dextrose 50 % 25 Gm/50 Ml Syringe IVPUSH 10/28/22 00:14 25 gm ONCE ONE Administration Furosemide 60 mg 10/27/22 22:38 10/28/22 00:30 Furosemide 100 Mg/10 Ml Vial IVPUSH 10/27/22 22:39 60 mg ONCE ONE Administration Protocol Furosemide 40 mg 10/28/22 06:18 10/28/22 07:28 Furosemide 40 Mg/4 Ml Vial IVPUSH 10/28/22 06:19 40 mg ONCE ONE Administration Protocol Glucagon 1 mg 10/27/22 20:06 10/27/22 20:23 Glucagon,Human Recombinant 1 Mg/Ml Vial IVPUSH 10/27/22 20:07 1 mg ONCE ONE Administration Sodium Chloride 1,000 mls @ 999 mls/hr 10/27/22 19:58 10/27/22 21:21 Ns IV 10/27/22 20:58 Infused .Q1H1M ONE Infusion Calcium Gluconate 2 gm in 100 mls @ 400 mls/hr 10/27/22 21:47 10/27/22 22:34 Calcium Gluconate IV 10/27/22 22:01 Infused ONCE ONE Infusion Calcium Gluconate 2 gm in 100 mls @ 50 mls/hr 10/28/22 00:13 10/28/22 02:49 Calcium Gluconate IV 10/28/22 02:12 Infused ONCE ONE Infusion Insulin Human Lispro 5 unit 10/28/22 00:13 10/28/22 00:46 Insulin Lispro 100 Unit/Ml 3 Ml Vial SUBCUT 10/28/22 00:14 5 unit ONCE ONE Administration Insulin Human Regular 5 unit 10/27/22 19:58 10/27/22 20:24 Insulin Regular, Human 100 Unit/Ml 3 Ml Vial IVPUSH 10/27/22 19:59 5 unit ONCE ONE Administration Insulin Human Regular 5 unit 10/27/22 21:47 10/27/22 22:04 Insulin Regular, Human 100 Unit/Ml 3 Ml Vial IVPUSH 10/27/22 21:48 5 unit ONCE ONE Administration Sodium Zirconium Cyclosilicate 10 gm 10/27/22 21:52 10/27/22 22:07 Sodium Zirconium Cyclosilicate 10 Gm Powd.Pack PO 10/27/22 21:53 10 gm ONCE ONE Administration Sodium Zirconium Cyclosilicate 10 gm 10/28/22 06:18 10/28/22 07:28 Sodium Zirconium Cyclosilicate 10 Gm Powd.Pack PO 10/28/22 06:19 10 gm ONCE ONE Administration Medical Decision Making Medical Decision Making MDM Narrative: Patient with sinus bradycardia on beta jos labs are pending blood pressure improved on IV hydration received atropine by EMS at this time heart rate is 38 beats per minute patient was given glucagon 1 mg IV and insulin 5 mg. Labs are pending patient signed out to Dr. Mendosa pending disposition re-evaluation and admission Differential Diagnosis Differential Diagnoses: The differential diagnosis associated with the presentation includes Metabolic encephalopathy/acute coronary syndrome/sick sinus syndrome/sepsis Admission/Observation Consideration of admission/observation: Escalation of care including admission/observation considered Lab Data MDM Lab Attestation statement: I reviewed the patient's lab results. 10/27/22 20:41 10/27/22 20:44 Labs: Lab Results 10/27/22 10/27/22 10/27/22 Range/Units 19:55 20:32 20:41 WBC 17.4 H (4.8-10.8) X10*3/uL RBC 3.20 L (4.20-5.50) X10*6/uL Hgb 7.8 L D (12.0-16.0) g/dl Hct 26.4 L (37.0-47.0) % MCV 82.5 (80.0-98.0) fL MCH 24.4 L (27.0-33.0) pg MCHC 29.5 L (31.0-35.0) g/dl RDW 14.6 (11.0-16.0) % Plt Count 237 D (160-400) X10*3/uL MPV 12.8 H (9.4-12.3) fL Immature Gran % (Auto) 0.6 H (0.0-0.4) % Neut % (Auto) 90.7 H (45-73) % Lymph % (Auto) 5.8 L (20-40) % [place] % (Auto) 1.7 L (2-11) % Eos % (Auto) 0.8 (0-4) % Baso % (Auto) 0.4 (0-2) % Lymph # (Auto) 1.0 L (1.2-4.9) X10*3/uL [place] # (Auto) 0.3 (0.1-1.2) X10*3/uL Eos # (Auto) 0.1 (0.0-0.4) X10*3/uL Baso # (Auto) 0.1 (0.0-0.2) X10*3/uL Abs Immat Gran (auto) 0.10 H (0.00-0.03) X10*3/uL Absolute Neuts (auto) 15.8 H (2.0-8.3) x10*3/uL Absolute Nucleated RBC 0.000 (0.0-0.012) X10*3/uL Nucleated RBC % (auto) 0.0 (0.0-0.2) /100WBC Smear Tech's Comments VERIFIED PT (11.1-13.3) SEC INR (0.9-1.1) VBG pH (7.32-7.43) VBG pCO2 mmHg VBG pO2 mmHg VBG HCO3 (22-26) mmol/L VBG O2 Saturation % VBG Base Excess mmol/L Sodium (135-145) mmol/L Potassium (3.3-5.1) mmol/L Chloride (96-108) mmol/L Carbon Dioxide (22-29) mmol/L Anion Gap (12-20) BUN (9-16) mg/dL Creatinine (0.5-1.4) mg/dL Estim Creat Clear Calc Estimated GFR POC Glucose 305 H (60-115) mg/dL Random Glucose (60-115) mg/dL Calcium (8.4-10.2) mg/dL Magnesium (1.6-2.6) mg/dL Total Bilirubin (0.0-1.0) mg/dL AST (5-31) U/L ALT (0-31) U/L Alkaline Phosphatase (39-117) U/L Troponin I High Sens (<3.5-17.0) ng/L Total Protein (6.5-8.0) g/dL Albumin (3.5-5.0) g/dL Stool Occult Blood (NEGATIVE) COVID-19 (DENY) Negative (Negative) COVID-19 Clin Com See Note Blood Type Antibody Screen 10/27/22 10/27/22 10/27/22 Range/Units 20:41 20:41 20:44 WBC (4.8-10.8) X10*3/uL RBC (4.20-5.50) X10*6/uL Hgb (12.0-16.0) g/dl Hct (37.0-47.0) % MCV (80.0-98.0) fL MCH (27.0-33.0) pg MCHC (31.0-35.0) g/dl RDW (11.0-16.0) % Plt Count (160-400) X10*3/uL MPV (9.4-12.3) fL Immature Gran % (Auto) (0.0-0.4) % Neut % (Auto) (45-73) % Lymph % (Auto) (20-40) % [place] % (Auto) (2-11) % Eos % (Auto) (0-4) % Baso % (Auto) (0-2) % Lymph # (Auto) (1.2-4.9) X10*3/uL [place] # (Auto) (0.1-1.2) X10*3/uL Eos # (Auto) (0.0-0.4) X10*3/uL Baso # (Auto) (0.0-0.2) X10*3/uL Abs Immat Gran (auto) (0.00-0.03) X10*3/uL Absolute Neuts (auto) (2.0-8.3) x10*3/uL Absolute Nucleated RBC (0.0-0.012) X10*3/uL Nucleated RBC % (auto) (0.0-0.2) /100WBC Smear Tech's Comments PT 12.3 (11.1-13.3) SEC INR 1.0 (0.9-1.1) VBG pH (7.32-7.43) VBG pCO2 mmHg VBG pO2 mmHg VBG HCO3 (22-26) mmol/L VBG O2 Saturation % VBG Base Excess mmol/L Sodium 133 L (135-145) mmol/L Potassium 7.0 H* D (3.3-5.1) mmol/L Chloride 100 (96-108) mmol/L Carbon Dioxide 19 L (22-29) mmol/L Anion Gap 21 H (12-20) BUN 88 H (9-16) mg/dL Creatinine 4.59 H* (0.5-1.4) mg/dL Estim Creat Clear Calc 15.4 Estimated GFR 9 POC Glucose (60-115) mg/dL Random Glucose 324 H (60-115) mg/dL Calcium 8.1 L D (8.4-10.2) mg/dL Magnesium 2.5 (1.6-2.6) mg/dL Total Bilirubin 0.2 (0.0-1.0) mg/dL AST 26 (5-31) U/L ALT 19 (0-31) U/L Alkaline Phosphatase 68 (39-117) U/L Troponin I High Sens 54.5 H* D (<3.5-17.0) ng/L Total Protein 6.0 L (6.5-8.0) g/dL Albumin 2.7 L (3.5-5.0) g/dL Stool Occult Blood (NEGATIVE) COVID-19 (DENY) (Negative) COVID-19 Clin Com Blood Type Antibody Screen 10/27/22 10/27/22 10/27/22 Range/Units 21:55 21:55 22:10 WBC (4.8-10.8) X10*3/uL RBC (4.20-5.50) X10*6/uL Hgb (12.0-16.0) g/dl Hct (37.0-47.0) % MCV (80.0-98.0) fL MCH (27.0-33.0) pg MCHC (31.0-35.0) g/dl RDW (11.0-16.0) % Plt Count (160-400) X10*3/uL MPV (9.4-12.3) fL Immature Gran % (Auto) (0.0-0.4) % Neut % (Auto) (45-73) % Lymph % (Auto) (20-40) % [place] % (Auto) (2-11) % Eos % (Auto) (0-4) % Baso % (Auto) (0-2) % Lymph # (Auto) (1.2-4.9) X10*3/uL [place] # (Auto) (0.1-1.2) X10*3/uL Eos # (Auto) (0.0-0.4) X10*3/uL Baso # (Auto) (0.0-0.2) X10*3/uL Abs Immat Gran (auto) (0.00-0.03) X10*3/uL Absolute Neuts (auto) (2.0-8.3) x10*3/uL Absolute Nucleated RBC (0.0-0.012) X10*3/uL Nucleated RBC % (auto) (0.0-0.2) /100WBC Smear Tech's Comments PT (11.1-13.3) SEC INR (0.9-1.1) VBG pH 7.35 (7.32-7.43) VBG pCO2 48 mmHg VBG pO2 42 mmHg VBG HCO3 26 (22-26) mmol/L VBG O2 Saturation 64.0 % VBG Base Excess 1.0 mmol/L Sodium (135-145) mmol/L Potassium (3.3-5.1) mmol/L Chloride (96-108) mmol/L Carbon Dioxide (22-29) mmol/L Anion Gap (12-20) BUN (9-16) mg/dL Creatinine (0.5-1.4) mg/dL Estim Creat Clear Calc Estimated GFR POC Glucose (60-115) mg/dL Random Glucose (60-115) mg/dL Calcium (8.4-10.2) mg/dL Magnesium (1.6-2.6) mg/dL Total Bilirubin (0.0-1.0) mg/dL AST (5-31) U/L ALT (0-31) U/L Alkaline Phosphatase (39-117) U/L Troponin I High Sens (<3.5-17.0) ng/L Total Protein (6.5-8.0) g/dL Albumin (3.5-5.0) g/dL Stool Occult Blood NEGATIVE (NEGATIVE) COVID-19 (DENY) (Negative) COVID-19 Clin Com Blood Type B Positive Antibody Screen NEGATIVE 10/27/22 Range/Units 22:43 WBC (4.8-10.8) X10*3/uL RBC (4.20-5.50) X10*6/uL Hgb (12.0-16.0) g/dl Hct (37.0-47.0) % MCV (80.0-98.0) fL MCH (27.0-33.0) pg MCHC (31.0-35.0) g/dl RDW (11.0-16.0) % Plt Count (160-400) X10*3/uL MPV (9.4-12.3) fL Immature Gran % (Auto) (0.0-0.4) % Neut % (Auto) (45-73) % Lymph % (Auto) (20-40) % [place] % (Auto) (2-11) % Eos % (Auto) (0-4) % Baso % (Auto) (0-2) % Lymph # (Auto) (1.2-4.9) X10*3/uL [place] # (Auto) (0.1-1.2) X10*3/uL Eos # (Auto) (0.0-0.4) X10*3/uL Baso # (Auto) (0.0-0.2) X10*3/uL Abs Immat Gran (auto) (0.00-0.03) X10*3/uL Absolute Neuts (auto) (2.0-8.3) x10*3/uL Absolute Nucleated RBC (0.0-0.012) X10*3/uL Nucleated RBC % (auto) (0.0-0.2) /100WBC Smear Tech's Comments PT (11.1-13.3) SEC INR (0.9-1.1) VBG pH (7.32-7.43) VBG pCO2 mmHg VBG pO2 mmHg VBG HCO3 (22-26) mmol/L VBG O2 Saturation % VBG Base Excess mmol/L Sodium 135 (135-145) mmol/L Potassium 6.4 H* (3.3-5.1) mmol/L Chloride 101 (96-108) mmol/L Carbon Dioxide 21 L (22-29) mmol/L Anion Gap 19 (12-20) BUN 88 H (9-16) mg/dL Creatinine 4.44 H* (0.5-1.4) mg/dL Estim Creat Clear Calc 15.9 Estimated GFR 10 POC Glucose (60-115) mg/dL Random Glucose 291 H (60-115) mg/dL Calcium 8.6 D (8.4-10.2) mg/dL Magnesium (1.6-2.6) mg/dL Total Bilirubin (0.0-1.0) mg/dL AST (5-31) U/L ALT (0-31) U/L Alkaline Phosphatase (39-117) U/L Troponin I High Sens (<3.5-17.0) ng/L Total Protein (6.5-8.0) g/dL Albumin (3.5-5.0) g/dL Stool Occult Blood (NEGATIVE) COVID-19 (DENY) (Negative) COVID-19 Clin Com Blood Type Antibody Screen Independent Interpretation I performed an independent interpretation of an: EKG Interpretation: Sinus bradycardia with first-degree heart block low voltage no acute ischemia Dr. Storm Buitrago's independent interpretation of the repeat 12 EKG done at 07:27 hours: Sinus bradycardia with a rate of 39, prolonged FL 214 milliseconds, prolonged QRS 108 milliseconds, normal QTC 433 milliseconds, inverted T-wave in lead 3, poor R-wave progression V1 through V3, nonspecific interventricular conduction delay, compared to EKG done on 10/28/2022 at 00:10 hours there is no significant change. Discharge Plan Discharge Clinical Impression: Altered mental status, Bradycardia, LEO (acute kidney injury), Hyperkalemia, CHF exacerbation Patient Disposition: Admitted As Inpatient
[2022-10-27 19:58] LABS: Glucose, Whole Blood 305 mg/dL (60-115)
--- NOTE | 2022-10-27 19:58 | ECG_ITS ---
Test Reason : JAVY Blood Pressure : / mmHG Vent. Rate : 037 BPM Atrial Rate : 037 BPM P-R Int : 238 ms QRS Dur : 110 ms QT Int : 544 ms P-R-T Axes : 042 108 011 degrees QTc Int : 427 ms Marked sinus bradycardia with 1st degree A-V block Rightward axis Low voltage QRS Abnormal ECG When compared with ECG of 30-JUL-2022 05:55, Vent. rate has decreased BY 49 BPM T wave inversion less evident in Inferior leads Referred By: Lalit Flynn Electronically Signed By:KATHERYN LIM MD
[2022-10-27 20:01] VITALS: BP 70/30; BP 76/27; PULSE 37; PULSE 44; RESP 16; O2SAT 96; BMI 45.5
[2022-10-27 20:09] VITALS: BP 104/33; PULSE 35
[2022-10-27] MEDS: 0.9 % Sodium Chloride 1,000 ML 999 ML IV (20:15)
[2022-10-27] MEDS: Insulin Regular, Human 100 UNIT/ML 3 ML VIAL IVPUSH ×2 (20:24→22:04)
[2022-10-27 20:50] LABS: Basophils Absolute Auto 0.1 X10*3/uL (0.0-0.2); Basophils Percent Auto 0.4 % (0-2); Eosinophils Absolute Auto 0.1 X10*3/uL (0.0-0.4); Eosinophils Percent Auto 0.8 % (0-4); Hematocrit 26.4 % (37.0-47.0); Hemoglobin 7.8 g/dl (12.0-16.0); Imm Gran Pct Auto 0.6 % (0.0-0.4); Lymphocytes Percent Auto 5.8 % (20-40); MANUAL DIFF FLAG SCAN; Mean Corpuscular HGB Conc 29.5 g/dl (31.0-35.0); Mean Corpuscular Hemoglobin 24.4 pg (27.0-33.0); Mean Corpuscular Volume 82.5 fL (80.0-98.0); Mean Platelet Volume 12.8 fL (9.4-12.3); Monocytes Absolute Auto 0.3 X10*3/uL (0.1-1.2); Monocytes Percent Auto 1.7 % (2-11); Neutrophils Absolute Auto 15.8 x10*3/uL (2.0-8.3); Neutrophils Percent Auto 90.7 % (45-73); Platelet Count 237 X10*3/uL (160-400); Red Cell Distribution Width 14.6 % (11.0-16.0); SCAN SMEAR FLAG 1; White Blood Count 17.4 X10*3/uL (4.8-10.8)
[2022-10-27 21:00] LABS: Prothrombin Time 12.3 SEC (11.1-13.3)
[2022-10-27 21:03] LABS: COVID-19 Test Negative (Negative); IDNOW Serial# BCCEAD1C
--- NOTE | 2022-10-27 21:18 | PHA.MEDREC ---
Pharmacy Consult ? Medication Reconciliation Pharmacy has completed the medication reconciliation. Patient family member brought in discharge summary from [facility]. Also brought in Calquence tablet. Pharmacy will hold onto until patient moves to the floor. Sondra Hart, PharmD
[2022-10-27 21:48] LABS: Alanine Aminotransferase 19 U/L (0-31); Albumin Level 2.7 g/dL (3.5-5.0); Alkaline Phosphatase 68 U/L (39-117); Anion Gap 21 (12-20); Aspartate Amino Transferase 26 U/L (5-31); Bilirubin Total 0.2 mg/dL (0.0-1.0); Blood Urea Nitrogen 88 mg/dL (9-16); Calcium 8.1 mg/dL (8.4-10.2); Carbon Dioxide 19 mmol/L (22-29); Chloride 100 mmol/L (96-108); Creatinine Clr Calc Pharmacy 15.4; Estimated Glomerular Filt Rate 9; Glucose Random 324 mg/dL (60-115); Magnesium 2.5 mg/dL (1.6-2.6); Sodium 133 mmol/L (135-145)
[2022-10-27 21:49] LABS: Troponin-I High Sensitivity 54.5 ng/L (<3.5-17.0)
[2022-10-27] MEDS: Calcium Gluconate/NaCl,Iso-Osm 2 GM/100 ML PLAST..BAG IV (21:57)
[2022-10-27 21:59] LABS: SLIDE REVIEW VERIFIED
[2022-10-27 22:00] LABS: OBS Int Ctl Valid YES; OBS1 NEGATIVE (NEGATIVE)
[2022-10-27] MEDS: Dextrose 50 % 25 GM/50 ML SYRINGE IVPUSH (22:05)
[2022-10-27] MEDS: Sodium Zirconium Cyclosilicate 10 GM POWD.PACK PO (22:07)
[2022-10-27 22:19] LABS: VBG HCO3 26 mmol/L (22-26); VBG pCO2 48 mmHg; VBG pH 7.35 (7.32-7.43); VBG pO2 42 mmHg
[2022-10-27 22:23] LABS: Venous Blood Gas Refer to POC result
[2022-10-27 22:52] VITALS: BP 108/36; PULSE 35; RESP 19; TEMP 36.6; O2SAT 95
[2022-10-27 23:10] LABS: Anion Gap 19 (12-20); Blood Urea Nitrogen 88 mg/dL (9-16); Calcium 8.6 mg/dL (8.4-10.2); Carbon Dioxide 21 mmol/L (22-29); Chloride 101 mmol/L (96-108); Creatinine Clr Calc Pharmacy 15.9; Estimated Glomerular Filt Rate 10; Glucose Random 291 mg/dL (60-115); Potassium 6.4 mmol/L (3.3-5.1); Sodium 135 mmol/L (135-145)
--- NOTE | 2022-10-27 23:49 | ECG_ITS ---
Test Reason : CHEST PAIN Blood Pressure : / mmHG Vent. Rate : 125 BPM Atrial Rate : 000 BPM P-R Int : 000 ms QRS Dur : 004 ms QT Int : 326 ms P-R-T Axes : 000 000 088 degrees QTc Int : 470 ms Poor data quality Possible Normal sinus rhythm Abnormal ECG When compared with ECG of 27-OCT-2022 20:02, Poor data quality in current ECG precludes serial comparison Repeat EKG Referred By: Susan Mendosa Electronically Signed By:KATHERYN LIM MD
[2022-10-28] VITALS (19 sets, daily range): BP systolic 87–140; BP diastolic 30–64; PULSE 36–70; RESP 18–34; TEMP 35.9–37; O2SAT 91–100
[2022-10-28] MEDS: Furosemide 100 MG/10 ML VIAL 60 MG IVPUSH (00:30)
[2022-10-28] MEDS: Dextrose 50 % 25 GM/50 ML SYRINGE IVPUSH ×2 (00:46→22:08)
[2022-10-28] MEDS: Insulin Lispro 100 UNIT/ML 3 ML VIAL SUBCUT ×2 (00:46→21:11)
[2022-10-28] MEDS: Calcium Gluconate/NaCl,Iso-Osm 2 GM/100 ML PLAST..BAG IV ×2 (00:46→22:08)
[2022-10-28] MEDS: Albuterol/Iprat 2.5/0.5MG 3 ML AMPUL.NEB INHALE (01:23)
--- NOTE | 2022-10-28 02:19 | PC.NURSE ---
patient in bed with eyes closed patient vitals are critical at this time patient have no complaints at this time patient had a second EKG and CT Scan performed patient is back on 4L NC patient received breathing treatments patient received all labs and patient will continue to be monitored for safety
[2022-10-28] MEDS: Heparin Sodium,Porcine 5,000 UNIT/ML VIAL 5000 UNIT SUBCUT ×2 (02:21→16:18)
[2022-10-28 02:30] LABS: Troponin-I High Sensitivity 76.8 ng/L (<3.5-17.0)
[2022-10-28 02:31] LABS: Anion Gap 20 (12-20); Blood Urea Nitrogen 90 mg/dL (9-16); Carbon Dioxide 20 mmol/L (22-29); Chloride 101 mmol/L (96-108); Creatinine Clr Calc Pharmacy 15.7; Estimated Glomerular Filt Rate 10; Glucose Random 177 mg/dL (60-115); Potassium 6.6 mmol/L (3.3-5.1); Sodium 134 mmol/L (135-145)
--- NOTE | 2022-10-28 03:30 | PC.NURSE ---
patient is still unable to void at this time patient will continue to be monitored for safety
[2022-10-28 05:12] LABS: Alanine Aminotransferase 21 U/L (0-31); Alkaline Phosphatase 66 U/L (39-117); Anion Gap 21 (12-20); Aspartate Amino Transferase 22 U/L (5-31); Bilirubin Total 0.2 mg/dL (0.0-1.0); Blood Urea Nitrogen 92 mg/dL (9-16); Carbon Dioxide 19 mmol/L (22-29); Chloride 100 mmol/L (96-108); Creatinine Clr Calc Pharmacy 15.8; Estimated Glomerular Filt Rate 10; Glucose Random 164 mg/dL (60-115); Potassium 6.5 mmol/L (3.3-5.1); Sodium 133 mmol/L (135-145); Total Protein 6.2 g/dL (6.5-8.0)
--- NOTE | 2022-10-28 06:15 | PM.IMHP ---
History of Present Illness Date of Service: 10/28/22 Chief Complaint: SOB This is a 72-year-old female with past medical history of CKD, CLL, history of congestive heart failure, HLD, HTN, hypothyroidism, peripheral vascular disease, COPD, comes into the hospital with complaints of shortness of breath. Patient reports that she just came home from [facility] on Tuesday, and then developed shortness of breath 2 days prior to presentation, she also has slight lower extremity edema, has orthopnea, PND, but denies any chest pain, no palpitations, has no dizziness, no headache or change in vision. Denies any abdominal pain nausea vomiting, no diarrhea constipation, no urinary symptoms. On arrival to the ED patient noted to be bradycardic with heart rate in the 30s with EKG showing sinus bradycardia, labs were significant for WBC count of 17.4- which appears to be chronically elevated, hemoglobin of 7.8 which is lower than her most recent with guaiac negative stools, her labs also showed a potassium level of 7.0, BUN of 88, creatinine of 4.59 with a most recent creatinine of 1.1 on 08/06, chest x-ray showing pulmonary edema and CHF and pleural effusion Abdominal pelvic CT shows mild left hydronephrosis with no calculi, Patient given Lokelma, calcium gluconate, furosemide, breathing treatments, with improvement in her heart rate, slightly improved potassium, as she is asymptomatic otherwise she will be admitted to telemetry Review of Systems Review of Systems: Yes all other systems are reviewed and are negative [facility] Medical History Acute respiratory failure Chronic lymphocytic leukemia (CLL), B-cell CKD (chronic kidney disease) CLL (chronic lymphocytic leukemia) Congestive heart failure Congestive heart failure COVID COVID-19 Diabetes mellitus with insulin therapy Dyspnea Essential hypertension HLD (hyperlipidemia) HTN (hypertension) Hypothyroidism Hypoxia Infection with ESBL Klebsiella oxytoca Influenza A Klebsiella pneumonia Lower extremity edema Lymphadenopathy, mediastinal Migraine Obesity Pleural effusion Pleural effusion Pneumonia due to COVID-19 virus Pseudotumor cerebri PVD (peripheral vascular disease) Suspected deep tissue injury Family History Mother Heart attack, Onset Age: 92 Father Heart attack, Onset Age: 66 Other Diabetes Surgical History H/O cataract extraction H/O hysterectomy for benign disease Hx of cholecystectomy S/P appendectomy Social History Household Members: Family Household Members Other:: patient came from a rehab facility, been there since dec Housing: Shelter Do you presently have visiting nurse or other home services: No Alcohol intake: never Patient Tobacco Use Status: Former Tobacco user Smoked in Last 30 Days: No Use of substances other than those prescribed or required for medical reasons: No Advance Directives: Yes Advance Directives on File: Yes Advance Directives Date on File: 09/26/20 service: No Current occupational status: disabled Meds Allergies Allergy/AdvReac Type Severity Reaction Status Date / Time oxycodone [From Percocet] Allergy Intermediate Rash Verified 04/27/22 11:42 lisinopril Allergy Unknown Unknown Verified 04/27/22 11:42 Active Medications: Current Medications Acetaminophen (Acetaminophen 325 Mg Tablet) 650 mg PO Q6H PRN PRN Reason: Pain, Mild (Pain Scale 1-3) Dextrose (Dextrose 50 % 25 Gm/50 Ml Syringe) 25 gm IVPUSH Q15M PRN; Protocol PRN Reason: per Hypoglycemia Standing Ord. Docusate Sodium (Docusate Sodium 100 Mg Capsule) 100 mg PO DAILY PRN PRN Reason: Constipation Furosemide (Furosemide 40 Mg/4 Ml Vial) 40 mg IVPUSH BID@0900,1800 [facility]; Protocol Glucose (Glucose Gel 15 Gm Gel..Gram.) 15 gm PO Q15M PRN; Protocol PRN Reason: per Hypoglycemia Standing Ord. Heparin Sodium (Porcine) (Heparin Sodium,Porcine 5,000 Unit/Ml Vial) 5,000 unit SUBCUT Q12H [facility] Last Admin: 10/28/22 02:21 Dose: 5,000 unit Insulin Human Lispro (Insulin Lispro 100 Unit/Ml 3 Ml Vial) 0 unit SUBCUT QIDACHS [facility]; Protocol Ondansetron HCl (Ondansetron Hcl 4 Mg/2 Ml Vial) 4 mg IVPUSH Q8H PRN PRN Reason: Nausea and Vomiting Pharmacy Consult (Consult Rx Perform Med Rec) 1 each MISCELLANE ONCE PRN PRN Reason: Consult order Sodium Chloride (0.9 % Sodium Chloride Flush 3 Ml Syringe) 3 ml IVFLUSH QSHIFT ALAN Home Medications Medication Instructions Recorded Confirmed Last Taken Type chlordiazepoxide HCl 10 mg capsule 10 mg PO BEDTIME 10/08/21 10/27/22 Unknown History citalopram 20 mg tablet 40 mg PO DAILY 10/08/21 10/27/22 Unknown History insulin lispro protamine-lispro 0 unit subcut QIDACHS 10/08/21 10/27/22 Unknown History 100 unit/mL (75-25) subcutaneous pen levothyroxine 175 mcg tablet 175 mcg PO DAILY@0600 10/08/21 10/27/22 Unknown History simvastatin 20 mg tablet 20 mg PO BEDTIME 10/08/21 10/27/22 Unknown History sitagliptin phosphate 100 mg 100 mg PO DAILY 10/08/21 10/27/22 Unknown History tablet (Januvia) latanoprost 0.005 % eye drops 1 drp ophthalmic (eye) BEDTIME 11/20/21 10/27/22 Unknown History albuterol sulfate 0.63 mg/3 mL 0.63 mg inhalation Q2H PRN Wheezing 02/16/22 10/27/22 Unknown History solution for nebulization brinzolamide 1 %-brimonidine 0.2 % 1 drp ophthalmic-Right BID 02/16/22 10/27/22 Unknown History eye drops,suspension (Simbrinza) wrrmnirlbh-aisnymvixuhtx-acaapgav 1 tab PO Q6H PRN Headache 02/16/22 10/27/22 Unknown History 50 mg-325 mg-40 mg tablet coenzyme Q10 100 mg capsule 150 mg PO DAILY 02/16/22 10/27/22 Unknown History (CoQ-10) insulin glargine 100 unit/mL (3 16 unit subcut BID 02/16/22 10/27/22 Unknown History mL) subcutaneous pen (Lantus Solostar U-100 Insulin) melatonin 5 mg tablet 5 mg PO BEDTIME 02/16/22 10/27/22 Unknown History metoprolol tartrate 50 mg tablet 50 mg PO BID 02/16/22 10/27/22 Unknown History prednisolone acetate 1 % eye 1 drp ophthalmic-Right DAILY 02/16/22 10/27/22 Unknown History drops,suspension sennosides 8.6 mg tablet (senna) 17.2 mg PO DAILY PRN Constipation 02/16/22 10/27/22 Unknown History timolol maleate 0.5 % eye drops 1 drp ophthalmic-Right BID 02/16/22 10/27/22 Unknown History carboxymethylcellulose sodium 1 % 1 drp ophthalmic (eye) BID 03/15/22 10/27/22 Unknown History eye drops (Artificial Tears (carboxymethylcellulose)) budesonide-formoterol HFA 160 2 puff inhalation BID 04/27/22 10/27/22 Unknown History mcg-4.5 mcg/actuation aerosol inhaler (Symbicort) umeclidinium 62.5 mcg/actuation 1 inh inhalation DAILY 04/27/22 10/27/22 Unknown History blister powder for inhalation (Incruse Ellipta) acetaminophen 325 mg tablet 650 mg PO Q4H PRN Pain (Scale 06/08/22 10/27/22 Unknown History (Tylenol) Score 4-6) amlodipine 10 mg tablet 10 mg PO DAILY high blood pressure 06/08/22 10/27/22 Unknown History guaifenesin 600 mg tablet, 600 mg PO BID cough 06/08/22 10/27/22 Unknown History extended release 12 hr polyethylene glycol 3350 17 17 g PO BID 06/08/22 10/27/22 Unknown History gram/dose oral powder (Miralax) sodium phosphates 19 gram-7 118 ml AK BEDTIME PRN Constipation 06/08/22 10/27/22 Unknown History gram/118 mL enema (Fleet Enema) levalbuterol HCl 1.25 mg/3 mL 1.25 mg inhalation QID 07/30/22 10/27/22 Unknown History solution for nebulization biotin 5 mg tablet 5 mg PO DAILY 08/11/22 10/27/22 Unknown History bisacodyl 10 mg rectal suppository 10 mg AK DAILY PRN Constipation 08/11/22 10/27/22 Unknown History guaifenesin 100 mg/5 mL oral liquid 200 mg PO Q4H PRN Pain (Scale 08/11/22 10/27/22 Unknown History Score 1-3) hydroxychloroquine 200 mg tablet 200 mg PO BID 08/11/22 10/27/22 Unknown History hydroxyzine HCl 25 mg tablet 25 mg PO DAILY 08/11/22 10/27/22 Unknown History lorazepam 0.5 mg tablet 0.5 mg PO BID PRN Anxiety 08/11/22 10/27/22 Unknown History magnesium 200 mg tablet 400 mg PO DAILY 08/11/22 10/27/22 Unknown History riboflavin (vitamin B2) 400 mg 400 mg PO DAILY 08/11/22 10/27/22 Unknown History tablet diphenhydramine-zinc acetate 2 1 appl topical BID 10/27/22 10/27/22 Unknown History %-0.1 % topical cream nystatin 100,000 unit/gram topical 1 appl topical BID 10/27/22 10/27/22 Unknown History powder prednisone 1 mg tablet 6 mg PO DAILY 10/27/22 10/27/22 Unknown History sennosides 8.6 mg-docusate sodium 1 tab-cap PO DAILY 10/27/22 10/27/22 Unknown History 50 mg tablet (Senna-S) Physical Exam Vital Signs and Narrative: Vital Signs: Last Vital Signs Temp 97.6 F 10/28/22 05:15 Pulse 51 10/28/22 05:15 Resp 18 10/28/22 05:15 BP 127/45 L 10/28/22 05:15 Pulse Ox 97 10/28/22 05:15 O2 Del Method Nasal Cannula 10/28/22 05:15 O2 Flow Rate 4 10/28/22 05:15 Oxygen Flow Rate 4 10/27/22 20:01 BMI result Body Mass Index 45.5 Const: General: cooperative and no acute distress Orientation/consciousness: patient oriented x3 Eyes: General: appearance normal, both eyes and all related structures Resp: Effort & Inspection: normal respiratory effort Auscultation: clear to auscultation bilaterally Cardio: Other: Bradycardia Rhythm: regular rhythm GI: Palpation (GI): Soft to palpation Auscultation: normal bowel sounds Skin: Other: Skin changes of chronic lymphedema in the lower extremities Neuro: General: patient oriented x3 Cognition (Neuro): normal cognition Extrem: Other: 1+ lower extremity edema General: Yes normal to inspection Results Labs 10/27/22 20:41 10/28/22 04:33 Labs: Laboratory Results - last 24 hr 10/27/22 10/27/22 10/27/22 19:55 20:32 20:41 MCV 82.5 MCH 24.4 L MCHC 29.5 L RDW 14.6 Plt Count 237 D MPV 12.8 H Immature Gran % (Auto) 0.6 H Neut % (Auto) 90.7 H Lymph % (Auto) 5.8 L Grant % (Auto) 1.7 L Eos % (Auto) 0.8 Baso % (Auto) 0.4 Lymph # (Auto) 1.0 L Grant # (Auto) 0.3 Eos # (Auto) 0.1 Baso # (Auto) 0.1 Abs Immat Gran (auto) 0.10 H Absolute Neuts (auto) 15.8 H Absolute Nucleated RBC 0.000 Nucleated RBC % (auto) 0.0 Smear Tech's Comments VERIFIED PT INR VBG pH VBG pCO2 VBG pO2 VBG HCO3 VBG O2 Saturation VBG Base Excess Anion Gap Estim Creat Clear Calc Estimated GFR POC Glucose 305 H Random Glucose Calcium Magnesium Total Bilirubin AST ALT Alkaline Phosphatase Total Protein Albumin Stool Occult Blood COVID-19 (DENY) Negative [email or web address] See Note Blood Type Antibody Screen 10/27/22 10/27/22 10/27/22 20:41 20:44 21:55 MCV MCH MCHC RDW Plt Count MPV Immature Gran % (Auto) Neut % (Auto) Lymph % (Auto) Grant % (Auto) Eos % (Auto) Baso % (Auto) Lymph # (Auto) Grant # (Auto) Eos # (Auto) Baso # (Auto) Abs Immat Gran (auto) Absolute Neuts (auto) Absolute Nucleated RBC Nucleated RBC % (auto) Smear Tech's Comments PT 12.3 INR 1.0 VBG pH VBG pCO2 VBG pO2 VBG HCO3 VBG O2 Saturation VBG Base Excess Anion Gap 21 H Estim Creat Clear Calc 15.4 Estimated GFR 9 POC Glucose Random Glucose 324 H Calcium 8.1 L D Magnesium 2.5 Total Bilirubin 0.2 AST 26 ALT 19 Alkaline Phosphatase 68 Total Protein 6.0 L Albumin 2.7 L Stool Occult Blood NEGATIVE COVID-19 (DENY) COVID-[employer] Blood Type Antibody Screen 10/27/22 10/27/22 10/27/22 21:55 22:10 22:43 MCV MCH MCHC RDW Plt Count MPV Immature Gran % (Auto) Neut % (Auto) Lymph % (Auto) Grant % (Auto) Eos % (Auto) Baso % (Auto) Lymph # (Auto) Grant # (Auto) Eos # (Auto) Baso # (Auto) Abs Immat Gran (auto) Absolute Neuts (auto) Absolute Nucleated RBC Nucleated RBC % (auto) Smear Tech's Comments PT INR VBG pH 7.35 VBG pCO2 48 VBG pO2 42 VBG HCO3 26 VBG O2 Saturation 64.0 VBG Base Excess 1.0 Anion Gap 19 Estim Creat Clear Calc 15.9 Estimated GFR 10 POC Glucose Random Glucose 291 H Calcium 8.6 D Magnesium Total Bilirubin AST ALT Alkaline Phosphatase Total Protein Albumin Stool Occult Blood COVID-19 (DENY) COVID-19 [employer] Blood Type B Positive Antibody Screen NEGATIVE 10/28/22 10/28/22 10/28/22 01:53 01:53 04:33 MCV MCH MCHC RDW Plt Count MPV Immature Gran % (Auto) Neut % (Auto) Lymph % (Auto) Grant % (Auto) Eos % (Auto) Baso % (Auto) Lymph # (Auto) Grant # (Auto) Eos # (Auto) Baso # (Auto) Abs Immat Gran (auto) Absolute Neuts (auto) Absolute Nucleated RBC Nucleated RBC % (auto) Smear Tech's Comments PT INR VBG pH VBG pCO2 VBG pO2 VBG HCO3 VBG O2 Saturation VBG Base Excess Anion Gap Cancelled 20 21 H Estim Creat Clear Calc Cancelled 15.7 15.8 Estimated GFR Cancelled 10 10 POC Glucose Random Glucose Cancelled 177 H 164 H Calcium Cancelled 9.0 9.0 Magnesium Total Bilirubin 0.2 AST 22 ALT 21 Alkaline Phosphatase 66 Total Protein 6.2 L Albumin 3.0 L Stool Occult Blood COVID-19 (DENY) COVID-19 [employer] [facility] Blood Type Antibody Screen Imaging Radiologist's Impressions: Impressions Chest X-Ray 10/27/22 21:21 IMPRESSION: CHF and small to moderate left pleural effusion. The left pleural effusion is improved compared to the previous study. Abdomen/Pelvis CT 10/28/22 01:20 IMPRESSION: 1. Mild left hydronephrosis. No calculi. 2. Small pleural effusions. Fleischner guidelines were followed. Assessment and Plan (1) Sinus bradycardia: Status: Acute (2) LEO (acute kidney injury): Status: Acute (3) Hyperkalemia: Status: Acute (4) CHF exacerbation: Status: Acute (5) CLL (chronic lymphocytic leukemia): Status: Chronic Plan 72-year-old female with past medical history of CHF, CLL, COPD, comes into the hospital with complaints of shortness of breath found to have CHF exacerbation, LEO, and hyperkalemia # acute CHF exacerbation - patient comes in with orthopnea, PND, dyspnea, as well as x-ray evidence of pleural effusion and pulmonary edema - BNP pending - on Bumex at home, will treat with IV Lasix - strict I&O, daily weight, low sodium diet - cardiology consulted - echocardiogram # sinus bradycardia - secondary to hyperkalemia - patient asymptomatic, has no dizziness, no headache, no change in vision, no chest pain, no palpitations - will treat underlying cause which is hyperkalemia - admit to telemetry, monitor symptoms, heart rate # LEO - possibly prerenal secondary to CHF - will start on Lasix - follow BMP - nephrology consulted - avoid nephrotoxins # hyperkalemia - likely multifactorial secondary to potassium supplement as patient was taking 40 mEq of potassium daily, as well as worsened by LEO - given Lokelma 10 mg x 2, calcium gluconate, insulin, glucose, as well as Lasix - follow BMP closely - nephrology consulted # history of COPD - not in exacerbation - continue home inhalers # hypertension - slightly soft - oral antihypertensives # on chronic prednisone - continue home prednisone dose # diabetes - continue home insulin - will add low-dose sliding scale insulin - diet # hypothyroidism - continue levothyroxine DVT prophylaxis: Heparin subQ Time Spent With Patient Time: Total time managing care of this patient today ____ minutes. Quality Stroke Does the patient have a stroke diagnosis?: No VTE Prior VTE?: No VTE Risk Level:: Medical - moderate - high VTE Device Contraindication: Treatment Not Indicated VTE Drug Contraindication: N/A - Med Ordered
--- NOTE | 2022-10-28 07:00 | CA_ITS ---
Transthoracic Echocardiogram Patient (Last, First, Middle): Cindy Toney F Gender: Female Date of : 1950 Age: 72 Procedure Date: 10/28/2022 Procedure Type: Transthoracic Echocardiogram Location: ER Height: 167.64 cm Weight: 121.56 kg BSA: 2.27 m2 Heart Rate: 39 bpm BP: 101 / 36 mmHg Social Worker Palliative Care: KARRI Referring MD: Elizabeth Atkinson MD Balancing Machine Operator: Rahul Bearden MD Symptoms: CHF Study Quality: Technically Difficult ECG Rhythm: Bradycardia Conclusions: - 1. Technically limited study despite use of contrast agent 2. On multiple different views LV systolic function appears to be normal with LVEF of 60 65%, diastolic function not determined given heavy mitral and calcification 3. There is heavily calcified mitral annulus and mitral stenosis cannot be entirely ruled out 4. Possible presence of aortic stenosis 5. Severely elevated right atrial pressures Findings Procedure Information Contrast agent, definity, is being given per protocol without apparent complications. The quality of the study was technically difficult, despite the use of contrast, endocardial definition remains poor, and apical images are suboptimal for definitive comment. The study quality is limited by the patients inability to tolerate the test, patients body habitus, limitations of a portable exam, and lung artifact. Left Ventricle The left ventricle was not well visualized. Normal left ventricular cavity size. There is normal left ventricular wall thickness. The left ventricular systolic function is normal. The visually estimated ejection fraction is between 60-65%. Diastolic function is indeterminate on the basis of available data. Right Ventricle The right ventricle was not well visualized. Atria The left atrium was not well visualized. There is lipomatous hypertrophy of the interatrial septum. There is no evidence of interatrial shunt. Aortic Valve The aortic valve was not well visualized. The peak aortic gradient is 15 mmHg.The mean gradient is 7 mmHg. There is no aortic valve regurgitation. Mitral Valve There is mild anterior and severe posterior mitral leaflet thickening. There is severe mitral annular calcification. There is no mitral valve regurgitation. Pulmonic Valve The pulmonic valve was not well visualized. Tricuspid Valve Significantly elevated right atrial pressure. Great Vessels The aorta was not well visualized. The visualized portions of the pulmonary artery and branches are normal. Venous The inferior vena cava is severely dilated and does not collapse with inspiration. Pericardium/Pleural The pericardium was not well visualized. Measurements 2D Linear Measurements IVSd: 0.87 0.6-0.9/0.6-1.0 cm LVIDd: 5.50 3.9-5.3/4.2-5.9 cm LVIDd Index: 2.42 2.4-3.2/2.2-3.1 cm/m2 LVPWd: 0.82 0.7-1.1 cm LA Diam: 4.10 2.7-3.8/3.0-4.0 cm LAIDs Index: 1.81 1.5-2.3 cm/m2 LV Mass: 212.40 67-162/88-224 g LV Mass Index: 93.57 43-95/49-115 g/m2 LVOT Diam: 1.90 3.0+(-)1.3 cm Mitral Valve MV VTI: 0.71 MV Pk Tristen: 2.26 MV Mn Tristen: 1.69 MV Pk Grad: 20.00 MV Mn Grad: 13.00 MV Pk E: 2.06 MV PK A: 1.89 E/A: 1.10 PHT: 69.00 MVA PHT: 3.19 MVA Continuity: 0.97 Decel [place]: 9.63 Aortic Valve AoV Pk Tristen: 1.91 AoV Mn Tristen: 1.25 AoV VTI: 0.47 AoV Pk Grad: 15.00 Aov Mn Grad: 7.00 EVAN Cont.VTI: 1.46 LVOT LVOT Pk Tristen: 0.78 LVOT Mn Tristen: 0.54 LVOT VTI: 0.24 LVOT Pk Grad: 2.00 LVOT Mn Grad: 1.00 LVOT Diam: 1.90 LVOT Area: 2.84 Diastolic Function MV Pk E: 2.06 MV Pk A: 1.89 E/A: 1.10 Tricuspid Valve RA Press: 15.00 Great Vessels Aorta Ao Asc: 3.20 2.1-3.4 cm Pulmonary Valve PV Pk Tristen: 1.23 Peak PV Grad: 6.00 Updated in Other Vendor System with Status of Final Rahul Bearden MD electronically signed on 10/28/2022 3:55:14 PM with status of Final
[2022-10-28 07:10] LABS: B Type Natriuretic Peptide 1017 pg/mL (<100)
--- NOTE | 2022-10-28 07:14 | ECG_ITS ---
Test Reason : CHEST PAIN Blood Pressure : / mmHG Vent. Rate : 048 BPM Atrial Rate : 000 BPM P-R Int : 000 ms QRS Dur : 102 ms QT Int : 506 ms P-R-T Axes : 000 104 011 degrees QTc Int : 452 ms Possible Sinus bradycardia with junctional complexes Rightward axis Abnormal ECG When compared with ECG of 28-OCT-2022 00:06, Poor data quality in current ECG precludes serial comparison Referred By: Susan Mendosa Electronically Signed By:KATHERYN LIM MD
[2022-10-28 07:24] LABS: Glucose, Whole Blood 199 mg/dL (60-115)
--- NOTE | 2022-10-28 07:27 | ECG_ITS ---
Test Reason : CP Blood Pressure : / mmHG Vent. Rate : 039 BPM Atrial Rate : 051 BPM P-R Int : 214 ms QRS Dur : 108 ms QT Int : 538 ms P-R-T Axes : 000 099 001 degrees QTc Int : 433 ms Sinus bradycardia with 2:1 AV block Rightward axis Cannot rule out Anterior infarct , age undetermined Abnormal ECG When compared with ECG of 28-OCT-2022 00:10, 2:1 AV block is now apparent. Referred By: Krystal Guillen Electronically Signed By:KATHERYN LIM MD
[2022-10-28] MEDS: Sodium Zirconium Cyclosilicate 10 GM POWD.PACK PO ×2 (07:28→22:08)
[2022-10-28] MEDS: Furosemide 40 MG/4 ML VIAL IVPUSH ×2 (07:28→09:52)
--- NOTE | 2022-10-28 07:40 | PC.NURSE ---
patient laying in hospital bed resting, respirations equal, mildly labored. treated with IV lasix, respiratory aware and called for breathing treatment. patient has lower bilateral extremity mottling, pedal pulses present. patient has bruising to the abdomen, thighs and arms. patient right arm has known clot, swollen and purple due to bruising. patient alert and oriented, did not want to eat breakfast, insulin held.
[2022-10-28 07:46] LABS: Appearance Urine Turbid; Color Urine Yellow; Glucose Urine UA Negative (Negative); Leukocyte Esterase Urine Large (3+) (Negative); Nitrite Urine Negative (Negative); PH 5.5 (5.0-9.0); Specific Gravity - Urine 1.015 (1.005-1.025); UMIC TRIGGER UACC YES; Urine Blood Negative (Negative); Urine Ketones Negative (Negative); Urine Protein Trace mg/dL (Neg-Trace)
[2022-10-28 08:12] LABS: Bacteria Urine 4+ (None Seen); Squamous Epithelial Cell Urine >20 /HPF (0-2); UACC Culture Trigger YES; WBC Urine >50 /HPF (0-5)
[2022-10-28] MEDS: levalbuterol HCL 1.25 MG/3 ML VIAL.NEB INHALE ×4 (08:19→19:38)
[2022-10-28] MEDS: Fluticasone/Vilanterol 200/25 BLST.W.DEV 1 PUFF INHALE (09:39)
--- NOTE | 2022-10-28 09:40 | P.CONNP_ITS ---
History of Present Illness Reason for Consult Consult date: 10/28/22 Chief Complaint Chief complaint: Hyperkalemia, LEO, CHF History of Present Illness Narrative: 72-year-old female with history of CKD admitted with CHF found to have wors ening kidney function and high serum potassium. She initially presented the hospital with complaints of shortness of breath for the last 2 days. On arrival to the ED patient noted to be bradycardic with heart rate in the 30s. She reports weight gain of around 5 lbs, lower extremity edema and orthopnea. She denies chest pain, abdominal pain nausea vomiting or diarrhea constipation. CT scna of the abdomen showed mild left hydronephrosis. Review of her vital signs showed low blood pressure with systolic BP down to the 70s. Chest x-ray showed pulmonary edema and CHF and pleural effusion Review of Systems Review of Systems 10 points ROS negative except for pertinent in HPI PMFSH Past Medical History Medical History Acute respiratory failure Chronic lymphocytic leukemia (CLL), B-cell CKD (chronic kidney disease) CLL (chronic lymphocytic leukemia) Congestive heart failure Congestive heart failure COVID COVID-19 Diabetes mellitus with insulin therapy Dyspnea Essential hypertension HLD (hyperlipidemia) HTN (hypertension) Hypothyroidism Hypoxia Infection with ESBL Klebsiella oxytoca Influenza A Klebsiella pneumonia Lower extremity edema Lymphadenopathy, mediastinal Migraine Obesity Pleural effusion Pleural effusion Pneumonia due to COVID-19 virus Pseudotumor cerebri PVD (peripheral vascular disease) Suspected deep tissue injury Family History Family History Mother Heart attack, Onset Age: 92 Father Heart attack, Onset Age: 66 Other Diabetes Surgical History Surgical History H/O cataract extraction H/O hysterectomy for benign disease Hx of cholecystectomy S/P appendectomy Social History Social History Household Members: Family Household Members Other:: patient came from a rehab facility, been there since dec Housing: Prison Do you presently have visiting nurse or other home services: No Alcohol intake: never Patient Tobacco Use Status: Former Tobacco user Smoked in Last 30 Days: No Use of substances other than those prescribed or required for medical reasons: No Advance Directives: Yes Advance Directives on File: Yes Advance Directives Date on File: 09/26/20 service: No Current occupational status: disabled Meds Allergies Allergy/AdvReac Type Severity Reaction Status Date / Time oxycodone [From Percocet] Allergy Intermediate Rash Verified 04/27/22 11:42 lisinopril Allergy Unknown Unknown Verified 04/27/22 11:42 Active Medications: Current Medications Acetaminophen (Acetaminophen 325 Mg Tablet) 650 mg PO Q6H PRN PRN Reason: Pain, Mild (Pain Scale 1-3) Albuterol Sulfate (Albuterol Sulfate (0.042%) 1.25 Mg/3 Ml Vial.Neb) 1.25 mg INHALE Q2H PRN PRN Reason: Wheezing Artificial Tears (Artificial Tears 15 Ml Drops) 1 drop EYE-BOTH BID [facility] Atorvastatin Calcium (Atorvastatin Calcium 10 Mg Tablet) 10 mg PO BEDTIME [facility] Bisacodyl (Bisacodyl 10 Mg Supp.Rect) 10 mg ME DAILY PRN PRN Reason: Constipation Chlordiazepoxide HCl (Chlordiazepoxide Hcl 5 Mg Capsule) 10 mg PO BEDTIME [facility] Dextrose (Dextrose 50 % 25 Gm/50 Ml Syringe) 25 gm IVPUSH Q15M PRN; Protocol PRN Reason: per Hypoglycemia Standing Ord. Docusate Sodium (Docusate Sodium 100 Mg Capsule) 100 mg PO DAILY PRN PRN Reason: Constipation Escitalopram Oxalate (Escitalopram Oxalate 20 Mg Tablet) 20 mg PO DAILY [facility] Fluticasone/Vilanterol (Fluticasone/Vilanterol 200/25 Blst.W.Dev) 1 puff INHALE RDAILY [facility] Last Admin: 10/28/22 09:39 Dose: 1 puff Furosemide (Furosemide 40 Mg/4 Ml Vial) 40 mg IVPUSH BID@0900,1800 [facility]; Protocol Glucose (Glucose Gel 15 Gm Gel..Gram.) 15 gm PO Q15M PRN; Protocol PRN Reason: per Hypoglycemia Standing Ord. Heparin Sodium (Porcine) (Heparin Sodium,Porcine 5,000 Unit/Ml Vial) 5,000 unit SUBCUT Q12H [facility] Last Admin: 10/28/22 02:21 Dose: 5,000 unit Hydroxychloroquine Sulfate (Hydroxychloroquine Sulfate 200 Mg Tablet) 200 mg PO BID [facility] Hydroxyzine HCl (Hydroxyzine Hcl 25 Mg Tablet) 25 mg PO DAILY [facility] Insulin Glargine (Insulin Glargine,Hum.Rec.Anlog 100 Unit/Ml 10 Ml Vial) 16 unit SUBCUT BID [facility] Insulin Human Lispro (Insulin Lispro 100 Unit/Ml 3 Ml Vial) 0 unit SUBCUT QIDACHS [facility]; Protocol Last Admin: 10/28/22 07:39 Dose: Not Given Latanoprost (Latanoprost 0.005 % Ophth Mona 2.5 Ml Drops) 1 drop EYE-BOTH BE DTIME [facility] Levalbuterol HCl (Levalbuterol Hcl 1.25 Mg/3 Ml Vial.Neb) 1.25 mg INHALE RQID [facility] Last Admin: 10/28/22 08:19 Dose: 1.25 mg Levothyroxine Sodium (Levothyroxine Sodium 175 Mcg Tablet) 175 mcg PO DAILY@0600 [facility] Lorazepam (Lorazepam 0.5 Mg Tablet) 0.5 mg PO BID PRN PRN Reason: Anxiety Magnesium Oxide (Magnesium Oxide 400 Mg Tablet) 200 mg PO DAILY [facility] Melatonin (Melatonin 3 Mg Tablet) 6 mg PO BEDTIME [facility] Pt Own ([Calquence ( Acalabrutinib Mal)] 100 Mg Tab 100 mg PO BID [facility] Non-Formulary Medication (Brinzolamide-Brimonidine [Simbrinza]) 1 drop EYE- RIGHT BID [facility] Non-Formulary Medication (Umeclidinium [Incruse Ellipta]) 1 inhalation INHALE DAILY [facility] Nystatin (Nystatin Powder 15 Gm Bottle) 1 appl TOPICAL BID [facility]; Protocol Ondansetron HCl (Ondansetron Hcl 4 Mg/2 Ml Vial) 4 mg IVPUSH Q8H PRN PRN Reason: Nausea and Vomiting Pharmacy Consult (Consult Rx Perform Med Rec) 1 each MISCELLANE ONCE PRN PRN Reason: Consult order Polyethylene Glycol (Polyethylene Glycol 3350 17 Gm Powd.Pack) 17 gm PO BID [facility] Prednisolone Acetate (Prednisolone Acetate 1 % Oph Susp 5 Ml Drpbtl) 1 drop EYE-RIGHT DAILY [facility] Prednisone (Prednisone 1 Mg Tablet) 6 mg PO DAILY [facility] Senna (Sennosides 8.6 Mg Tablet) 17.2 mg PO DAILY PRN PRN Reason: Constipation Senna/Docusate Sodium (Sennosides/Docusate Sodium Tablet) 1 tab PO DAILY [facility] Sodium Biphosphate/Sodium Phosphate (Sodium Phosphate,Sandoval-Dibasic 133 Ml Enema) 118 ml ME BEDTIME PRN PRN Reason: Constipation Sodium Chloride (0.9 % Sodium Chloride Flush 3 Ml Syringe) 3 ml IVFLUSH QSHIFT ALAN Timolol Maleate (Timolol Maleate 0.5 % Oph Mona 5 Ml Drbtl) 1 drop EYE-RIGHT BID [facility] Home Medications Medication Instructions Recorded Confirmed Last Taken Type chlordiazepoxide HCl 10 mg capsule 10 mg PO BEDTIME 10/08/21 10/27/22 Unknown History citalopram 20 mg tablet 40 mg PO DAILY 10/08/21 10/27/22 Unknown History insulin lispro protamine-lispro 0 unit subcut QIDACHS 10/08/21 10/27/22 Unknown History 100 unit/mL (75-25) subcutaneous pen levothyroxine 175 mcg tablet 175 mcg PO DAILY@0600 10/08/21 10/27/22 Unknown History simvastatin 20 mg tablet 20 mg PO BEDTIME 10/08/21 10/27/22 Unknown History sitagliptin phosphate 100 mg 100 mg PO DAILY 10/08/21 10/27/22 Unknown History tablet (Januvia) latanoprost 0.005 % eye drops 1 drp ophthalmic (eye) BEDTIME 11/20/21 10/27/22 Unknown History albuterol sulfate 0.63 mg/3 mL 0.63 mg inhalation Q2H PRN Wheezing 02/16/22 10/27/22 Unknown History solution for nebulization brinzolamide 1 %-brimonidine 0.2 % 1 drp ophthalmic-Right BID 02/16/22 10/27/22 Unknown History eye drops,suspension (Simbrinza) [id number] 1 tab PO Q6H PRN Headache 02/16/22 10/27/22 Unknown History 50 mg-325 mg-40 mg tablet coenzyme Q10 100 mg capsule 150 mg PO DAILY 02/16/22 10/27/22 Unknown History (CoQ-10) insulin glargine 100 unit/mL (3 16 unit subcut BID 02/16/22 10/27/22 Unknown History mL) subcutaneous pen (Lantus Solostar U-100 Insulin) melatonin 5 mg tablet 5 mg PO BEDTIME 02/16/22 10/27/22 Unknown History metoprolol tartrate 50 mg tablet 50 mg PO BID 02/16/22 10/27/22 Unknown History prednisolone acetate 1 % eye 1 drp ophthalmic-Right DAILY 02/16/22 10/27/22 Unknown History drops,suspension sennosides 8.6 mg tablet (senna) 17.2 mg PO DAILY PRN Constipation 02/16/22 10/27/22 Unknown History timolol maleate 0.5 % eye drops 1 drp ophthalmic-Right BID 02/16/22 10/27/22 Unknown History carboxymethylcellulose sodium 1 % 1 drp ophthalmic (eye) BID 03/15/22 10/27/22 Unknown History eye drops (Artificial Tears (carboxymethylcellulose)) budesonide-formoterol HFA 160 2 puff inhalation BID 04/27/22 10/27/22 Unknown History mcg-4.5 mcg/actuation aerosol inhaler (Symbicort) umeclidinium 62.5 mcg/actuation 1 inh inhalation DAILY 04/27/22 10/27/22 Unknown History blister powder for inhalation (Incruse Ellipta) acetaminophen 325 mg tablet 650 mg PO Q4H PRN Pain (Scale 06/08/22 10/27/22 Unknown History (Tylenol) Score 4-6) amlodipine 10 mg tablet 10 mg PO DAILY high blood pressure 06/08/22 10/27/22 Unknown History guaifenesin 600 mg tablet, 600 mg PO BID cough 06/08/22 10/27/22 Unknown History extended release 12 hr polyethylene glycol 3350 17 17 g PO BID 06/08/22 10/27/22 Unknown History gram/dose oral powder (Miralax) sodium phosphates 19 gram-7 118 ml ME BEDTIME PRN Constipation 06/08/22 10/27/22 Unknown History gram/118 mL enema (Fleet Enema) levalbuterol HCl 1.25 mg/3 mL 1.25 mg inhalation QID 07/30/22 10/27/22 Unknown History solution for nebulization biotin 5 mg tablet 5 mg PO DAILY 08/11/22 10/27/22 Unknown History bisacodyl 10 mg rectal suppository 10 mg ME DAILY PRN Constipation 08/11/22 10/27/22 Unknown History guaifenesin 100 mg/5 mL oral liquid 200 mg PO Q4H PRN Pain (Scale 08/11/22 10/27/22 Unknown History Score 1-3) hydroxychloroquine 200 mg tablet 200 mg PO BID 08/11/22 10/27/22 Unknown History hydroxyzine HCl 25 mg tablet 25 mg PO DAILY 08/11/22 10/27/22 Unknown History lorazepam 0.5 mg tablet 0.5 mg PO BID PRN Anxiety 08/11/22 10/27/22 Unknown History magnesium 200 mg tablet 400 mg PO DAILY 08/11/22 10/27/22 Unknown History riboflavin (vitamin B2) 400 mg 400 mg PO DAILY 08/11/22 10/27/22 Unknown History tablet diphenhydramine-zinc acetate 2 1 appl topical BID 10/27/22 10/27/22 Unknown History %-0.1 % topical cream nystatin 100,000 unit/gram topical 1 appl topical BID 10/27/22 10/27/22 Unknown History powder prednisone 1 mg tablet 6 mg PO DAILY 10/27/22 10/27/22 Unknown History sennosides 8.6 mg-docusate sodium 1 tab-cap PO DAILY 10/27/22 10/27/22 Unknown History 50 mg tablet (Senna-S) Physical Exam Vital Signs: Last Vital Signs Temp 97.6 F 10/28/22 07:19 Pulse 39 L 10/28/22 08:22 Resp 24 H 10/28/22 08:22 BP 128/38 L 10/28/22 07:19 Pulse Ox 97 10/28/22 07:19 O2 Del Method Room Air, Nasal Cannula 10/28/22 07:19 O2 Flow Rate 4 10/28/22 07:19 Oxygen Flow Rate 4 10/27/22 20:01 BMI result Body Mass Index 45.5 Const General: alert and awake HEENT Head: Yes normocephalic and Yes atraumatic Neck Neck: Yes supple Resp Auscultation: diminished lung sounds Cardio Rate: bradycardic Heart sounds: S1 normal heart sound present and S2 normal heart sound present GI Palpation (GI): Soft to palpation and nontender Extrem General: Yes pedal edema Results Lab Results 10/27/22 20:41 10/28/22 04:33 Lab results: Chemistry 10/27/22 10/27/22 10/28/22 20:44 22:43 01:53 Sodium 133 L 135 Cancelled Potassium 7.0 H* D 6.4 H* Cancelled Carbon Dioxide 19 L 21 L Cancelled BUN 88 H 88 H Cancelled Creatinine 4.59 H* 4.44 H* Cancelled Calcium 8.1 L D 8.6 D Cancelled 10/28/22 10/28/22 01:53 04:33 Sodium 134 L 133 L Potassium 6.6 H* 6.5 H* Carbon Dioxide 20 L 19 L BUN 90 H 92 H Creatinine 4.49 H* 4.47 H* Calcium 9.0 9.0 Hematology 10/27/22 20:41 WBC 17.4 H Hgb 7.8 L D Plt Count 237 D Urinalysis 10/28/22 07:38 Urine Color Yellow Urine Appearance Turbid Urine pH 5.5 Ur Specific [place] 1.015 Urine Protein Trace Urine Glucose (UA) Negative Urine Ketones Negative Urine Blood Negative Urine Nitrite Negative Ur Leukocyte Esterase Large (3+) H Urine RBC 3-5 H Urine WBC >50 H Ur Squamous Epith Cells >20 Hyaline Casts 6-10 Assessment and Plan (1) LEO (acute kidney injury): Status: Acute (2) Hyperkalemia: Status: Acute (3) (HFpEF) heart failure with preserved ejection fraction: Status: Acute (4) CKD (chronic kidney disease) stage 3, GFR 30-59 ml/min: Status: Acute Plan multifactorial LEO: -congestive nephrosarca c/w cardio renal syndrome -acute tubular injury -obstructive uropathy hypotensive CT scan showed mild left hydronephrosis elevated serum potassium due to compromised distal flow known CKD baseline Scr ~ 1.2 mg/dl h/o HFpEF volume status above dry weight REC Nohemy renal US c/w IV diuresis rate control albumin no IVF sodium zirconium D50/insulin no indication for [employer] monitor urine output follow kidney function and electrolytes Time Spent With Patient Time: Total time managing care of this patient today ____ minutes. Procedures Date of Service Date of Service: 10/28/22
--- NOTE | 2022-10-28 09:47 | MHC.CM.PN ---
Attempted to meet with patient in regards to discharge planning. Attempted to meet with patient in regards to discharge planning. Nursing care currently being provided. Will attempt to meet with patient again. Continue to monitor for d/c needs.
[2022-10-28] MEDS: Escitalopram Oxalate 20 MG TABLET PO (09:50)
[2022-10-28] MEDS: Hydroxychloroquine Sulfate 200 MG TABLET PO (09:50)
[2022-10-28] MEDS: hydrOXYzine HCL 25 MG TABLET PO (09:50)
[2022-10-28] MEDS: Sennosides/Docusate Sodium TABLET 1 TAB PO (09:50)
[2022-10-28] MEDS: Insulin Glargine,Hum.rec.anlog 100 UNIT/ML 10 ML VIAL 16 UNIT SUBCUT ×2 (09:51→21:12)
[2022-10-28] MEDS: Magnesium Oxide 400 MG TABLET 200 MG PO (09:51)
[2022-10-28] MEDS: polyethylene glycoL 3350 17 GM POWD.PACK PO (09:52)
--- NOTE | 2022-10-28 10:09 | PC.NURSE ---
Addendum entered by Regina Valdovinos RN 10/28/22 10:11: patients states she has constant neck pain, right greater then left. patient positions frequently changed, pillows placed and removed without any relief in pain. DR Guillen aware of pain, cardiology at bedside Original Note: patient family at bedside, patient sitting up in bed, respirations equal and less labored since given first dose of lasix and breathing treatment. patient has no signs of distress
--- NOTE | 2022-10-28 11:05 | PC.NURSE ---
patient placed on bed shah, had a liquid bowel movement, patient cleaned up with soap and water, new pads, cream placed on bottom. patients bottom red and irritated. powder applied to groin area and folds. patient repositioned in bed and boosted.
[2022-10-28] MEDS: Acetaminophen 325 MG TABLET 650 MG PO (11:08)
--- NOTE | 2022-10-28 11:10 | P.CONCA_ITS ---
History of Present Illness History of Present Illness Date of Service: 10/28/22 Requesting physician: Krystal Guillen Consult reason: congestive heart failure and other (Bradycardia) Chief complaint: Hyperkalemia, LEO, CHF Narrative: I was consulted to see Cindy in cardiology consultation today as she comes in with altered mental status and a niece notice that heart rate was very slow. Patient has a very long and complicated past medical history. Admitted last year in November and was on mechanical ventilation for 18 days as per the needs for acute hypoxemic respiratory failure suspected to be due to may be cor pulmonale and Pickwickian syndrome and heart failure. She was diuresed and subsequently after discharge was sent to a [facility] facility. In the [facility] facility she has had basically minimal rehab as per the niece. She has been mostly bed-bound and has been bed-bound and with now minimal mobility. Annabel says that this was as she has recurrent viral illnesses with COVID and RSV and they could not participate in physical therapy and subsequently now she has very poor functional status. She is released from [facility] facility last Tuesday at home. At home she has been mostly bedbound. As per the knee issues doing well for the 1st 3 days at home and was alert and eating her meals and taking her diuretics and going to bathroom. However the last 2 days she took turn for the worse. Her appetite and eating pattern changed yesterday. She was very drowsy and was difficult to be kept awake. The knees then checked her oxygen which was within normal limits but notice that her pulse was very low and therefore decided to come and bring her to the emergency room. In the emergency she is noted to have acute kidney injury with her creatinine in the 4 with poor renal output as well as signific ant bradycardia with heart rate in the upper 30s and 40s and remaining in sinus bradycardia. A blood pressure is stable. She has significant difficulty laying flat and has short of breath and chest x-ray is consistent with heart failure with elevated BNP. Needs also says over the last today she has been complaining of leg pain. There is some redness in the right lower extremity. Otherwise dif ficult to obtain history. Patient denies any palpitation or chest pain. No lightheadedness. She has been diagnosed with sleep apnea but just recently received CPAP and has not started CPAP therapy at home. Is on chronic oxygen at home. Review of Systems Constitutional: Constitutional: Reports daytime sleepiness, Reports lethargy, Reports poor appetite and Reports other (Altered mental status) Eyes: Eyes: Reports no additional eye complaints Cardiovascular: Cardiovascular: Denies chest pain, Denies lightheadedness, Denies Loss of Consciousness, Denies palpitations, Reports orthopnea and Reports slow heart rate Respiratory: Respiratory: Denies wheezing Gastrointestinal: Gastrointestinal: Reports no additional gastrointestinal complaints Musculoskeletal: Musculoskeletal: Reports no additional musculoskeletal compl aints Neurologic: Reports system reviewed and no additional complaints, except as documented Psychiatric: Psychiatric: Reports no additional psychiatric complaints Endocrine: Endocrine: Denies palpitations Allergic/Immunologic: Allergic/Immunologic: Denies wheezing PMFSH Past Medical History Medical History Acute respiratory failure Chronic lymphocytic leukemia (CLL), B-cell CKD (chronic kidney disease) CLL (chronic lymphocytic leukemia) Congestive heart failure Congestive heart failure COVID COVID-19 Diabetes mellitus with insulin therapy Dyspnea Essential hypertension HLD (hyperlipidemia) HTN (hypertension) Hypothyroidism Hypoxia Infection with ESBL Klebsiella oxytoca Influenza A Klebsiella pneumonia Lower extremity edema Lymphadenopathy, mediastinal Migraine Obesity Pleural effusion Pleural effusion Pneumonia due to COVID-19 virus Pseudotumor cerebri PVD (peripheral vascular disease) Suspected deep tissue injury Family History Family History Mother Heart attack, Onset Age: 92 Father Heart attack, Onset Age: 66 Other Diabetes Surgical History Surgical History H/O cataract extraction H/O hysterectomy for benign disease Hx of cholecystectomy S/P appendectomy Social History Social History Household Members: Family Household Members Other:: patient came from a rehab facility, been there since dec Housing: Snf Do you presently have visiting nurse or other home services: No Alcohol intake: never Patient Tobacco Use Status: Former Tobacco user Smoked in Last 30 Days: No Use of substances other than those prescribed or required for medical reasons: No Advance Directives: Yes Advance Directives on File: Yes Advance Directives Date on File: 09/26/20 service: No Current occupational status: disabled Meds Allergies Allergy/AdvReac Type Severity Reaction Status Date / Time oxycodone [From Percocet] Allergy Intermediate Rash Verified 04/27/22 11:42 lisinopril Allergy Unknown Unknown Verified 04/27/22 11:42 Active Medications: Current Medications Acetaminophen (Acetaminophen 325 Mg Tablet) 650 mg PO Q6H PRN PRN Reason: Pain, Mild (Pain Scale 1-3) Last Admin: 10/28/22 11:08 Dose: 650 mg Albuterol Sulfate (Albuterol Sulfate (0.042%) 1.25 Mg/3 Ml Vial.Neb) 1.25 mg INHALE Q2H PRN PRN Reason: Wheezing Artificial Tears (Artificial Tears 15 Ml Drops) 1 drop EYE-BOTH BID [facility] Atorvastatin Calcium (Atorvastatin Calcium 10 Mg Tablet) 10 mg PO BEDTIME [facility] Bisacodyl (Bisacodyl 10 Mg Supp.Rect) 10 mg HI DAILY PRN PRN Reason: Constipation Chlordiazepoxide HCl (Chlordiazepoxide Hcl 5 Mg Capsule) 10 mg PO BEDTIME [facility] Dextrose (Dextrose 50 % 25 Gm/50 Ml Syringe) 25 gm IVPUSH Q15M PRN; Protocol PRN Reason: per Hypoglycemia Standing Ord. Docusate Sodium (Docusate Sodium 100 Mg Capsule) 100 mg PO DAILY PRN PRN Reason: Constipation Escitalopram Oxalate (Escitalopram Oxalate 20 Mg Tablet) 20 mg PO DAILY [facility] Last Admin: 10/28/22 09:50 Dose: 20 mg Fluticasone/Vilanterol (Fluticasone/Vilanterol 200/25 Blst.W.Dev) 1 puff INHALE RDAILY [facility] Last Admin: 10/28/22 09:39 Dose: 1 puff Furosemide (Furosemide 40 Mg/4 Ml Vial) 40 mg IVPUSH BID@0900,1800 [facility]; Protocol Last Admin: 10/28/22 09:52 Dose: 40 mg Glucose (Glucose Gel 15 Gm Gel..Gram.) 15 gm PO Q15M PRN; Protocol PRN Reason: per Hypoglycemia Standing Ord. Heparin Sodium (Porcine) (Heparin Sodium,Porcine 5,000 Unit/Ml Vial) 5,000 unit SUBCUT Q12H [facility] Last Admin: 10/28/22 02:21 Dose: 5,000 unit Hydroxychloroquine Sulfate (Hydroxychloroquine Sulfate 200 Mg Tablet) 200 mg PO BID [facility] Last Admin: 10/28/22 09:50 Dose: 200 mg Hydroxyzine HCl (Hydroxyzine Hcl 25 Mg Tablet) 25 mg PO DAILY [facility] Last Admin: 10/28/22 09:50 Dose: 25 mg Insulin Glargine (Insulin Glargine,Hum.Rec.Anlog 100 Unit/Ml 10 Ml Vial) 16 unit SUBCUT BID [facility] Last Admin: 10/28/22 09:51 Dose: 16 unit Insulin Human Lispro (Insulin Lispro 100 Unit/Ml 3 Ml Vial) 0 unit SUBCUT QIDACHS [facility]; Protocol Last Admin: 10/28/22 07:39 Dose: Not Given Latanoprost (Latanoprost 0.005 % Ophth Mona 2.5 Ml Drops) 1 drop EYE-BOTH BEDTIME [facility] Levalbuterol HCl (Levalbuterol Hcl 1.25 Mg/3 Ml Vial.Neb) 1.25 mg INHALE RQID [facility] Last Admin: 10/28/22 08:19 Dose: 1.25 mg Levothyroxine Sodium (Levothyroxine Sodium 175 Mcg Tablet) 175 mcg PO DAILY@0600 [facility] Lorazepam (Lorazepam 0.5 Mg Tablet) 0.5 mg PO BID PRN PRN Reason: Anxiety Magnesium Oxide (Magnesium Oxide 400 Mg Tablet) 200 mg PO DAILY [facility] Last Admin: 10/28/22 09:51 Dose: 200 mg Melatonin (Melatonin 3 Mg Tablet) 6 mg PO BEDTIME [facility] Pt Own ([Calquence ( Acalabrutinib Mal)] 100 Mg Tab 100 mg PO BID [facility] Last Admin: 10/28/22 09:53 Dose: 100 mg Non-Formulary Medication (Brinzolamide-Brimonidine [Simbrinza]) 1 drop EYE- RIGHT BID [facility] Non-Formulary Medication (Umeclidinium [Incruse Ellipta]) 1 inhalation INHALE DAILY [facility] Nystatin (Nystatin Powder 15 Gm Bottle) 1 appl TOPICAL BID [facility]; Protocol Ondansetron HCl (Ondansetron Hcl 4 Mg/2 Ml Vial) 4 mg IVPUSH Q8H PRN PRN Reason: Nausea and Vomiting Pharmacy Consult (Consult Rx Perform Med Rec) 1 each MISCELLANE ONCE PRN PRN Reason: Consult order Polyethylene Glycol (Polyethylene Glycol 3350 17 Gm Powd.Pack) 17 gm PO BID [facility] Last Admin: 10/28/22 09:52 Dose: 17 gm Prednisolone Acetate (Prednisolone Acetate 1 % Oph Susp 5 Ml Drpbtl) 1 drop EYE-RIGHT DAILY [facility] Prednisone (Prednisone 1 Mg Tablet) 6 mg PO DAILY [facility] Senna (Sennosides 8.6 Mg Tablet) 17.2 mg PO DAILY PRN PRN Reason: Constipation Senna/Docusate Sodium (Sennosides/Docusate Sodium Tablet) 1 tab PO DAILY [facility] Last Admin: 10/28/22 09:50 Dose: 1 tab Sodium Biphosphate/Sodium Phosphate (Sodium Phosphate,[place]-Dibasic 133 Ml Enema) 118 ml HI BEDTIME PRN PRN Reason: Constipation Sodium Chloride (0.9 % Sodium Chloride Flush 3 Ml Syringe) 3 ml IVFLUSH QSHIFT [facility] Timolol Maleate (Timolol Maleate 0.5 % Oph Mona 5 Ml Drbtl) 1 drop EYE-RIGHT BID [facility] Home Medications Medication Instructions Recorded Confirmed Last Taken Type chlordiazepoxide HCl 10 mg capsule 10 mg PO BEDTIME 10/08/21 10/27/22 Unknown History citalopram 20 mg tablet 40 mg PO DAILY 10/08/21 10/27/22 Unknown History insulin lispro protamine-lispro 0 unit subcut QIDACHS 10/08/21 10/27/22 Unknown History 100 unit/mL (75-25) subcutaneous pen levothyroxine 175 mcg tablet 175 mcg PO DAILY@0600 10/08/21 10/27/22 Unknown History simvastatin 20 mg tablet 20 mg PO BEDTIME 10/08/21 10/27/22 Unknown History sitagliptin phosphate 100 mg 100 mg PO DAILY 10/08/21 10/27/22 Unknown History tablet (Januvia) latanoprost 0.005 % eye drops 1 drp ophthalmic (eye) BEDTIME 11/20/21 10/27/22 Unknown History albuterol sulfate 0.63 mg/3 mL 0.63 mg inhalation Q2H PRN Wheezing 02/16/22 10/27/22 Unknown History solution for nebulization brinzolamide 1 %-brimonidine 0.2 % 1 drp ophthalmic-Right BID 02/16/22 10/27/22 Unknown History eye drops,suspension (Simbrinza) [id number] 1 tab PO Q6H PRN Headache 02/16/22 10/27/22 Unknown History 50 mg-325 mg-40 mg tablet coenzyme Q10 100 mg capsule 150 mg PO DAILY 02/16/22 10/27/22 Unknown History (CoQ-10) insulin glargine 100 unit/mL (3 16 unit subcut BID 02/16/22 10/27/22 Unknown History mL) subcutaneous pen (Lantus Solostar U-100 Insulin) melatonin 5 mg tablet 5 mg PO BEDTIME 02/16/22 10/27/22 Unknown History metoprolol tartrate 50 mg tablet 50 mg PO BID 02/16/22 10/27/22 Unknown History prednisolone acetate 1 % eye 1 drp ophthalmic-Right DAILY 02/16/22 10/27/22 Unknown History drops,suspension sennosides 8.6 mg tablet (senna) 17.2 mg PO DAILY PRN Constipation 02/16/22 10/27/22 Unknown History timolol maleate 0.5 % eye drops 1 drp ophthalmic-Right BID 02/16/22 10/27/22 Unknown History carboxymethylcellulose sodium 1 % 1 drp ophthalmic (eye) BID 03/15/22 10/27/22 Unknown History eye drops (Artificial Tears (carboxymethylcellulose)) budesonide-formoterol HFA 160 2 puff inhalation BID 04/27/22 10/27/22 Unknown History mcg-4.5 mcg/actuation aerosol inhaler (Symbicort) umeclidinium 62.5 mcg/actuation 1 inh inhalation DAILY 04/27/22 10/27/22 Unknown History blister powder for inhalation (Incruse Ellipta) acetaminophen 325 mg tablet 650 mg PO Q4H PRN Pain (Scale 06/08/22 10/27/22 Unknown History (Tylenol) Score 4-6) amlodipine 10 mg tablet 10 mg PO DAILY high blood pressure 06/08/22 10/27/22 Unknown History guaifenesin 600 mg tablet, 600 mg PO BID cough 06/08/22 10/27/22 Unknown History extended release 12 hr polyethylene glycol 3350 17 17 g PO BID 06/08/22 10/27/22 Unknown History gram/dose oral powder (Miralax) sodium phosphates 19 gram-7 118 ml HI BEDTIME PRN Constipation 06/08/22 10/27/22 Unknown History gram/118 mL enema (Fleet Enema) levalbuterol HCl 1.25 mg/3 mL 1.25 mg inhalation QID 07/30/22 10/27/22 Unknown History solution for nebulization biotin 5 mg tablet 5 mg PO DAILY 08/11/22 10/27/22 Unknown History bisacodyl 10 mg rectal suppository 10 mg HI DAILY PRN Constipation 08/11/22 10/27/22 Unknown History guaifenesin 100 mg/5 mL oral liquid 200 mg PO Q4H PRN Pain (Scale 08/11/22 10/27/22 Unknown History Score 1-3) hydroxychloroquine 200 mg tablet 200 mg PO BID 08/11/22 10/27/22 Unknown History hydroxyzine HCl 25 mg tablet 25 mg PO DAILY 08/11/22 10/27/22 Unknown History lorazepam 0.5 mg tablet 0.5 mg PO BID PRN Anxiety 08/11/22 10/27/22 Unknown History magnesium 200 mg tablet 400 mg PO DAILY 08/11/22 10/27/22 Unknown History riboflavin (vitamin B2) 400 mg 400 mg PO DAILY 08/11/22 10/27/22 Unknown History tablet diphenhydramine-zinc acetate 2 1 appl topical BID 10/27/22 10/27/22 Unknown History %-0.1 % topical cream nystatin 100,000 unit/gram topical 1 appl topical BID 10/27/22 10/27/22 Unknown History powder prednisone 1 mg tablet 6 mg PO DAILY 10/27/22 10/27/22 Unknown History sennosides 8.6 mg-docusate sodium 1 tab-cap PO DAILY 10/27/22 10/27/22 Unknown History 50 mg tablet (Senna-S) Physical Exam Vital Signs: Vital Signs: Last Vital Signs Temp 97.6 F 10/28/22 09:57 Pulse 42 L 10/28/22 09:57 Resp 18 10/28/22 09:57 BP 102/47 L 10/28/22 09:57 Pulse Ox 97 10/28/22 09:57 O2 Del Method Nasal Cannula 10/28/22 09:57 O2 Flow Rate 2 10/28/22 09:57 Oxygen Flow Rate 4 10/27/22 20:01 BMI result Body Mass Index 45.5 Const: General: cooperative, alert, in distress mild and respiratory and lethargic Nutritional Appearance: obese morbidly obese Orientation/c onsciousness: lethargic HEENT: Head: Yes normocephalic and Yes atraumatic Neck: Neck: Yes trachea midline, Yes supple and Yes other (Cannot evaluate JVD) Resp: Effort & Inspection: decreased respiratory effort Auscultation: diminished lung sounds Cardio: Rate: bradycardic Rhythm: regular rhythm Heart sounds: S1 normal heart sound present, S2 normal heart sound present, no click, no gallops and Murmur heart sound present systolic early Skin: General skin exam: no rashes or lesions noted and ecchymosis Neuro: General: moves all extremities Extrem: General: No clubbing, No cyanosis, Yes edema and Yes venous stasis dermatitis Objective Labs and Meds 10/27/22 20:41 10/28/22 04:33 Lab results: Laboratory Results - last 24 hr 10/27/22 10/27/22 10/27/22 19:55 20:32 20:41 WBC 17.4 H RBC 3.20 L Hgb 7.8 L D Hct 26.4 L MCV 82.5 MCH 24.4 L MCHC 29.5 L RDW 14.6 Plt Count 237 D MPV 12.8 H Immature Gran % (Auto) 0.6 H Neut % (Auto) 90.7 H Lymph % (Auto) 5.8 L [place] % (Auto) 1.7 L Eos % (Auto) 0.8 Baso % (Auto) 0.4 Lymph # (Auto) 1.0 L [place] # (Auto) 0.3 Eos # (Auto) 0.1 Baso # (Auto) 0.1 Abs Immat Gran (auto) 0.10 H Absolute Neuts (auto) 15.8 H Absolute Nucleated RBC 0.000 Nucleated RBC % (auto) 0.0 Smear Tech's Comments VERIFIED PT INR VBG pH VBG pCO2 VBG pO2 VBG HCO3 VBG O2 Saturation VBG Base Excess Sodium Potassium Chloride Carbon Dioxide Anion Gap BUN Creatinine Estim Creat Clear Calc Estimated GFR POC Glucose 305 H Random Glucose Calcium Magnesium Total Bilirubin AST ALT Alkaline Phosphatase Troponin I High Sens B-Natriuretic Peptide Total Protein Albumin Urine Color Urine Appearance Urine pH Ur Specific [place] Urine Protein Urine Glucose (UA) Urine Ketones Urine Blood Urine Nitrite Ur Leukocyte Esterase Urine RBC Urine WBC Ur Squamous Epith Cells Urine Bacteria Hyaline Casts Stool Occult Blood COVID-19 (DENY) Negative COVID-19 Clin Com See Note Blood Type Antibody Screen 10/27/22 10/27/22 10/27/22 20:41 20:41 20:44 WBC RBC Hgb Hct MCV MCH MCHC RDW Plt Count MPV Immature Gran % (Auto) Neut % (Auto) Lymph % (Auto) [place] % (Auto) Eos % (Auto) Baso % (Auto) Lymph # (Auto) [place] # (Auto) Eos # (Auto) Baso # (Auto) Abs Immat Gran (auto) Absolute Neuts (auto) Absolute Nucleated RBC Nucleated RBC % (auto) Smear Tech's Comments PT 12.3 INR 1.0 VBG pH VBG pCO2 VBG pO2 VBG HCO3 VBG O2 Saturation VBG Base Excess Sodium 133 L Potassium 7.0 H* D Chloride 100 Carbon Dioxide 19 L Anion Gap 21 H BUN 88 H Creatinine 4.59 H* Estim Creat Clear Calc 15.4 Estimated GFR 9 POC Glucose Random Glucose 324 H Calcium 8.1 L D Magnesium 2.5 Total Bilirubin 0.2 AST 26 ALT 19 Alkaline Phosphatase 68 Troponin I High Sens 54.5 H* D B-Natriuretic Peptide Total Protein 6.0 L Albumin 2.7 L Urine Color Urine Appearance Urine pH Ur Specific [place] Urine Protein Urine Glucose (UA) Urine Ketones Urine Blood Urine Nitrite Ur Leukocyte Esterase Urine RBC Urine WBC Ur Squamous Epith Cells Urine Bacteria Hyaline Casts Stool Occult Blood COVID-19 (DENY) COVID-19 Clin Com Blood Type Antibody Screen 10/27/22 10/27/22 10/27/22 21:55 21:55 22:10 WBC RBC Hgb Hct MCV MCH MCHC RDW Plt Count MPV Immature Gran % (Auto) Neut % (Auto) Lymph % (Auto) [place] % (Auto) Eos % (Auto) Baso % (Auto) Lymph # (Auto) [place] # (Auto) Eos # (Auto) Baso # (Auto) Abs Immat Gran (auto) Absolute Neuts (auto) Absolute Nucleated RBC Nucleated RBC % (auto) Smear Tech's Comments PT INR VBG pH 7.35 VBG pCO2 48 VBG pO2 42 VBG HCO3 26 VBG O2 Saturation 64.0 VBG Base Excess 1.0 Sodium Potassium Chloride Carbon Dioxide Anion Gap BUN Creatinine Estim Creat Clear Calc Estimated GFR POC Glucose Random Glucose Calcium Magnesium Total Bilirubin AST ALT Alkaline Phosphatase Troponin I High Sens B-Natriuretic Peptide Total Protein Albumin Urine Color Urine Appearance Urine pH Ur Specific [place] Urine Protein Urine Glucose (UA) Urine Ketones Urine Blood Urine Nitrite Ur Leukocyte Esterase Urine RBC Urine WBC Ur Squamous Epith Cells Urine Bacteria Hyaline Casts Stool Occult Blood NEGATIVE COVID-19 (DENY) COVID-19 Clin Com Blood Type B Positive Antibody Screen NEGATIVE 10/27/22 10/28/22 10/28/22 22:43 01:53 01:53 WBC RBC Hgb Hct MCV MCH MCHC RDW Plt Count MPV Immature Gran % (Auto) Neut % (Auto) Lymph % (Auto) [place] % (Auto) Eos % (Auto) Baso % (Auto) Lymph # (Auto) [place] # (Auto) Eos # (Auto) Baso # (Auto) Abs Immat Gran (auto) Absolute Neuts (auto) Absolute Nucleated RBC Nucleated RBC % (auto) Smear Tech's Comments PT INR VBG pH VBG pCO2 VBG pO2 VBG HCO3 VBG O2 Saturation VBG Base Excess Sodium 135 Cancelled 134 L Potassium 6.4 H* Cancelled 6.6 H* Chloride 101 Cancelled 101 Carbon Dioxide 21 L Cancelled 20 L Anion Gap 19 Cancelled 20 BUN 88 H Cancelled 90 H Creatinine 4.44 H* Cancelled 4.49 H* Estim Creat Clear Calc 15.9 Cancelled 15.7 Estimated GFR 10 Cancelled 10 POC Glucose Random Glucose 291 H Cancelled 177 H Calcium 8.6 D Cancelled 9.0 Magnesium Total Bilirubin AST ALT Alkaline Phosphatase Troponin I High Sens B-Natriuretic Peptide Total Protein Albumin Urine Color Urine Appearance Urine pH Ur Specific [place] Urine Protein Urine Glucose (UA) Urine Ketones Urine Blood Urine Nitrite Ur Leukocyte Esterase Urine RBC Urine WBC Ur Squamous Epith Cells Urine Bacteria Hyaline Casts Stool Occult Blood COVID-19 (DENY) COVID-19 Clin Com Blood Type Antibody Screen 10/28/22 10/28/22 10/28/22 01:53 04:33 04:33 WBC RBC Hgb Hct MCV MCH MCHC RDW Plt Count MPV Immature Gran % (Auto) Neut % (Auto) Lymph % (Auto) [place] % (Auto) Eos % (Auto) Baso % (Auto) Lymph # (Auto) [place] # (Auto) Eos # (Auto) Baso # (Auto) Abs Immat Gran (auto) Absolute Neuts (auto) Absolute Nucleated RBC Nucleated RBC % (auto) Smear Tech's Comments PT INR VBG pH VBG pCO2 VBG pO2 VBG HCO3 VBG O2 Saturation VBG Base Excess Sodium 133 L Potassium 6.5 H* Chloride 100 Carbon Dioxide 19 L Anion Gap 21 H BUN 92 H Creatinine 4.47 H* Estim Creat Clear Calc 15.8 Estimated GFR 10 POC Glucose Random Glucose 164 H Calcium 9.0 Magnesium Total Bilirubin 0.2 AST 22 ALT 21 Alkaline Phosphatase 66 Troponin I High Sens 76.8 H* B-Natriuretic Peptide 1017 H Total Protein 6.2 L Albumin 3.0 L Urine Color Urine Appearance Urine pH Ur Specific [place] Urine Protein Urine Glucose (UA) Urine Ketones Urine Blood Urine Nitrite Ur Leukocyte Esterase Urine RBC Urine WBC Ur Squamous Epith Cells Urine Bacteria Hyaline Casts Stool Occult Blood COVID-19 (DENY) COVID-19 [employer] Com Blood Type Antibody Screen 10/28/22 10/28/22 07:17 07:38 WBC RBC Hgb Hct MCV MCH MCHC RDW Plt Count MPV Immature Gran % (Auto) Neut % (Auto) Lymph % (Auto) [place] % (Auto) Eos % (Auto) Baso % (Auto) Lymph # (Auto) [place] # (Auto) Eos # (Auto) Baso # (Auto) Abs Immat Gran (auto) Absolute Neuts (auto) Absolute Nucleated RBC Nucleated RBC % (auto) Smear Tech's Comments PT INR VBG pH VBG pCO2 VBG pO2 VBG HCO3 VBG O2 Saturation VBG Base Excess Sodium Potassium Chloride Carbon Dioxide Anion Gap BUN Creatinine Estim Creat Clear Calc Estimated GFR POC Glucose 199 H Random Glucose Calcium Magnesium Total Bilirubin AST ALT Alkaline Phosphatase Troponin I High Sens B-Natriuretic Peptide Total Protein Albumin Urine Color Yellow Urine Appearance Turbid Urine pH 5.5 Ur Specific [place] 1.015 Urine Protein Trace Urine Glucose (UA) Negative Urine Ketones Negative Urine Blood Negative Urine Nitrite Negative Ur Leukocyte Esterase Large (3+) H Urine RBC 3-5 H Urine WBC >50 H Ur Squamous Epith Cells >20 Urine Bacteria 4+ Hyaline Casts 6-10 Stool Occult Blood COVID-19 (DENY) COVID-19 Clin Com Blood Type Antibody Screen EKG shows marked sinus bradycardia Imaging Radiologist's impression: Impressions Chest X-Ray 10/27/22 21:21 IMPRESSION: CHF and small to moderate left pleural effusion. The left pleural effusion is improved compared to the previous study. Abdomen/Pelvis CT 10/28/22 01:20 IMPRESSION: 1. Mild left hydronephrosis. No calculi. 2. Small pleural effusions. Fleischner guidelines were followed. Assessment and Plan (1) Acute respiratory failure with hypoxia: Status: Acute Acute hypoxemic respiratory failure in this elderly woman with poor functional status with morbid obesity and high likelihood of peak we can syndrome and respiratory ventilation. Difficult to assess fluid status given her body habitus on her. However there is evidence of CHF by chest x-ray as well as has evidence of mild leg edema as well as elevated BNP. However elevated BNP could be due to acute renal injury. She has also developed acute kidney injury causing hyperkalemia. Given her hypoxemic respiratory failure I would try to diurese her to improve her respiratory status. Will start on Lasix drip at 5 mg an hour if she does not respond increases 10 mg an hour. Strict intake and output chart needs to be pursued. Continue follow renal function closely. Overall prognosis is guarded. Consider CPAP therapy overnight. Continue oxygen supplementation therapy. If she fails to improve consider renal replacement therapy. Patient being followed by Nephrology as well. (2) Sinus bradycardia: Status: Acute Sinus bradycardia which is combination of hyperkalemia as well as metoprolol therapy. Discontinue metoprolol therapy for now and correct hyperkalemia aggr essively. If hyperkalemia does not improve consider renal replacement therapy as well. Full disclosure cardiac telemetry. There is no acute indication for pacing at this point time. Will follow with Time Spent With Patient Time: Total time managing care of this patient today ____ minutes. Procedures Date of Service Date of Service: 10/28/22
[2022-10-28] MEDS: Furosemide 200 MG in 0.9 % Sodium Chloride 80 ML IVCONT (12:31)
[2022-10-28] MEDS: prednisoLONE Acetate 1 % Oph Susp 5 ML DRPBTL 1 DROP EYE-RIGHT (12:46)
[2022-10-28] MEDS: timoloL maleate 0.5 % Oph Sol 5 ML DRBTL 1 DROP EYE-RIGHT ×2 (12:46→21:14)
--- NOTE | 2022-10-28 12:50 | PC.NURSE ---
patient has blood tranfusing, Vital signs stable. DR Guillen aware of patients current state
[2022-10-28] MEDS: predniSONE 1 MG TABLET 6 MG PO (14:03)
--- NOTE | 2022-10-28 14:33 | PC.NURSE ---
patient requested bed shah, pt had liquid stool bowel movement. pt cleaned up, repositioned and boosted in bed to comfort. patient resp status becomes labored, when cleaned up, takes several minutess to recover with oxygen support. patient mentation remained at baseline
[2022-10-28 15:12] LABS: Glucose, Whole Blood 212 mg/dL (60-115)
--- NOTE | 2022-10-28 16:21 | PC.NURSE ---
150ml urine output
[2022-10-28 17:12] LABS: Glucose, Whole Blood 209 mg/dL (60-115)
--- NOTE | 2022-10-28 17:52 | PM.EVENT ---
Event Note Date of Service: 10/28/22 Event Note: admitted this morning due to symptoms of shortness of breath, lower extremity edema, orthopnea, PND, patient diagnosed to have leukocytosis, anemia, hyperkalemia, acute kidney injury and CHF. at present patient complaining of neck pain, generalized body ache and shortness of breath. Physical exam General awake alert x3, in no acute distress. Neck supple no JVD. CVS bradycardia Respiratory tachypnea, clear to auscultation, no wheeze, no rales Gastrointestinal abdomen soft, nontender, bowel sounds audible, no guarding , no rigidity. Extremities no edema. Neuro nonfocal, moving all 4 extremity, speech clear. Skin ecchymosis lower extremities abdominal wall/ upper extremity 72-year-old female with past medical history of CHF, CLL, COPD, comes into the hospital with complaints of shortness of breath found to have CHF exacerbation, LEO, and hyperkalemia # acute diastolic CHF exacerbation - orthopnea, PND, dyspnea, chest x-ray evidence of pleural effusion and pulmonary edema - BNP elevated - on Bumex at home, will treat with IV Lasix drip, DC IV Lasix b.i.d. - place Turner for fluid management,strict I&O, daily weight, low sodium diet - case discussed with Cardiology and Nephrology they agree with above treatment plan follow echocardiogram # UTI positive urinalysis, with cloudy urine history of ESBL positive Proteus will place on meropenem follow urine cultures, Chronic leukocytosis likely due to steroids/ history of CLL # sinus bradycardia - secondary to hyperkalemia, metoprolol - patient asymptomatic, has no dizziness, no headache, no change in vision, no chest pain, no palpitations - hold metoprolol continue pacer pad and tele monitoring # LEO - seen by Nephrology likely multifactorial cardiorenal syndrome/ acute tubular injury and obstructive uropathy - continue diuretics, follow BMP avoid nephrotoxins # hyperkalemia - likely multifactorial secondary to potassium supplement , as well as worsening renal function - received Lokelma 10 mg x 2, calcium gluconate, insulin, glucose, as well as Lasix in ED repeat potassium improved from 7-6.5, will repeat dose of Lokelma - follow BMP closely # history of COPD - not in exacerbation - continue home inhalers # hypertension - soft BP hold metoprolol # on chronic prednisone - continue home prednisone dose # diabetes - stable blood sugars, Lantus and insulin sliding scale, diabetic diet blood sugars in 200s # hypothyroidism - continue levothyroxine, check TSH # morbid obesity recommend low-calorie diet. DVT prophylaxis:? Heparin subQ in my clinical judgment patient will require continued inpatient hospitalization for management of acute kidney injury, hyperkalemia Time Spent With Patient Time: Total time managing care of this patient today ____ minutes.
[2022-10-28] MEDS: LORazepam 0.5 MG TABLET PO (18:14)
[2022-10-28 20:42] LABS: Glucose, Whole Blood 228 mg/dL (60-115)
--- NOTE | 2022-10-28 21:00 | PC.NURSE ---
Upon initial assessment at 1999- pt A&Ox4, drowsy. HR on tele, 30-40s with peaked T waves. No labs checked all day since 429. Contacted MD Atkinson to inquire about repeat labs. BMP ordered at 2099- MD easley of critical K+ 6.7. New orders for insulin Lispro 10 units SQ, D50 25 gm IVP, Calcium Gluconate 2 gm IV, Lokelma 10 gm PO, and albuterol updraft. Pt c/o SOB, SpO2 93% on 3L NC, RR 30s and abdominal breathing, fine crackles to LLL, Lasix gtt found to be off at bedside, orders still active and restarted per JUN. notified, orders for BNP and Morphine 4 mg IVP. Given with good effect. Pt resting comfortably at this time. Call morocho in reach, bed locked in lowest position.
[2022-10-28] MEDS: Atorvastatin Calcium 10 MG TABLET PO (21:11)
[2022-10-28] MEDS: chlordiazePOXIDE HCl 5 MG CAPSULE 10 MG PO (21:11)
[2022-10-28] MEDS: Melatonin 3 MG TABLET 6 MG PO (21:11)
[2022-10-28] MEDS: Artificial Tears 15 ML DROPS 1 DROP EYE-BOTH (21:15)
[2022-10-28 21:46] LABS: Anion Gap 23 (12-20); Blood Urea Nitrogen 93 mg/dL (9-16); Calcium 9.3 mg/dL (8.4-10.2); Carbon Dioxide 17 mmol/L (22-29); Chloride 98 mmol/L (96-108); Creatinine Clr Calc Pharmacy 16.2; Estimated Glomerular Filt Rate 10; Glucose Random 227 mg/dL (60-115); Potassium 6.7 mmol/L (3.3-5.1); Sodium 131 mmol/L (135-145)
[2022-10-28] MEDS: Albuterol Sulfate (0.042%) 1.25 MG/3 ML VIAL.NEB INHALE (21:59)
[2022-10-28] MEDS: Morphine Sulfate 4 MG/ML CARTRIDGE IVPUSH (22:08)
[2022-10-28] MEDS: Insulin Lispro 100 UNIT/ML 3 ML VIAL 10 UNIT SUBCUT (22:08)
[2022-10-28] MEDS: Albuterol Sulfate 2.5 MG, Albuterol/Iprat 2.5/0.5MG 3 ML 3 ML INHALE (22:22)
[2022-10-28 22:54] LABS: B Type Natriuretic Peptide 1161 pg/mL (<100)
[2022-10-29] VITALS (10 sets, daily range): BP systolic 114–136; BP diastolic 53–63; PULSE 35–58; RESP 16–21; TEMP 35.9–37.1; O2SAT 86–99; BMI 46.9
[2022-10-29] MEDS: Heparin Sodium,Porcine 5,000 UNIT/ML VIAL 5000 UNIT SUBCUT ×2 (01:38→13:14)
[2022-10-29] MEDS: Levothyroxine Sodium 175 MCG TABLET PO (05:17)
[2022-10-29] MEDS: Fluticasone/Vilanterol 200/25 BLST.W.DEV 1 PUFF INHALE (08:13)
[2022-10-29] MEDS: levalbuterol HCL 1.25 MG/3 ML VIAL.NEB INHALE ×4 (08:13→20:06)
[2022-10-29 08:31] LABS: Glucose, Whole Blood 54 mg/dL (60-115)
[2022-10-29 08:45] LABS: Hematocrit 28.1 % (37.0-47.0); Hemoglobin 8.5 g/dl (12.0-16.0); Mean Corpuscular HGB Conc 30.2 g/dl (31.0-35.0); Mean Corpuscular Hemoglobin 25.3 pg (27.0-33.0); Mean Corpuscular Volume 83.6 fL (80.0-98.0); Mean Platelet Volume 12.3 fL (9.4-12.3); Platelet Count 221 X10*3/uL (160-400); Red Blood Count 3.36 X10*6/uL (4.20-5.50); Red Cell Distribution Width 14.6 % (11.0-16.0); White Blood Count 15.1 X10*3/uL (4.8-10.8)
[2022-10-29] MEDS: Escitalopram Oxalate 20 MG TABLET PO (08:48)
[2022-10-29] MEDS: Hydroxychloroquine Sulfate 200 MG TABLET PO (08:48)
[2022-10-29] MEDS: predniSONE 1 MG TABLET 6 MG PO (08:49)
[2022-10-29] MEDS: Sennosides/Docusate Sodium TABLET 1 TAB PO (08:49)
[2022-10-29] MEDS: hydrOXYzine HCL 25 MG TABLET PO (08:49)
[2022-10-29] MEDS: Magnesium Oxide 400 MG TABLET 200 MG PO (08:49)
[2022-10-29] MEDS: prednisoLONE Acetate 1 % Oph Susp 5 ML DRPBTL 1 DROP EYE-RIGHT (08:53)
[2022-10-29] MEDS: timoloL maleate 0.5 % Oph Sol 5 ML DRBTL 1 DROP EYE-RIGHT (08:54)
[2022-10-29] MEDS: Artificial Tears 15 ML DROPS 1 DROP EYE-BOTH (08:54)
[2022-10-29] MEDS: 0.9 % Sodium Chloride Flush 3 ML SYRINGE IVFLUSH ×2 (08:54→16:44)
[2022-10-29 09:15] LABS: Anion Gap 22 (12-20); Blood Urea Nitrogen 95 mg/dL (9-16); Calcium 9.3 mg/dL (8.4-10.2); Carbon Dioxide 19 mmol/L (22-29); Chloride 99 mmol/L (96-108); Creatinine Clr Calc Pharmacy 16.8; Estimated Glomerular Filt Rate 10; Glucose Random 55 mg/dL (60-115); Potassium 5.8 mmol/L (3.3-5.1); Sodium 134 mmol/L (135-145)
[2022-10-29 09:19] LABS: Thyroid Stimulating Hormone 0.99 uIU/mL (0.32-4.0)
--- NOTE | 2022-10-29 10:21 | P.PNIM_ITS ---
Subjective Subjective Date of Service: 10/29/22 Interval History: feeling better this morning, less shortness of breath slept better after receiving IV morphine, tolerating diet, no nausea, no vomiting, no abdominal pain heart rate improved denies lightheadedness, no dizziness no headache no fevers, no chills no other acute issues overnight. Review of Systems all other system reviewed Physical Exam Vital Signs: Vital Signs: Last Vital Signs Temp 97.0 F 10/29/22 07:15 Pulse 45 L 10/29/22 08:15 Resp 18 10/29/22 08:15 BP 136/63 10/29/22 07:15 Pulse Ox 92 10/29/22 07:15 O2 Del Method Room Air 10/29/22 07:15 O2 Flow Rate 3 10/29/22 02:42 Oxygen Flow Rate 4 10/27/22 20:01 BMI result Body Mass Index 46.9 Const: Other: Gen: awake alert x 3 ,no acute resp. distress HEENT: sc kam anicteric, mo ist mucus membrane s Neck: supple, no JVD Lungs: dimini shed breath sounds ,few wheeze, no t achypnea, no crack les Heart: regular rate and rhythm, no murmurs Abd: so ft, obese,non-tend er, bowel sounds a udible Ext: discol oration both legs, ch.Rt leg bigger than left leg,non pitting edema Rig ht dorsum of hand swollen,good radia l pulse Skin: mul tiple areas of ecc hymosis, Neuro: a lert and oriented x3, no focal findi ngs Psych: appropr iate affect Objective Data Active Medications Acetaminophen (Acetaminophen 325 Mg Tablet) 650 mg PO Q6H PRN PRN Reason: Pain, Mild (Pain Scale 1-3) Last Admin: 10/28/22 11:08 Dose: 650 mg Documented By: PAULINO Albuterol Sulfate (Albuterol Sulfate (0.042%) 1.25 Mg/3 Ml Vial.Neb) 1.25 mg INHALE Q2H PRN PRN Reason: Wheezing Last Admin: 10/28/22 21:59 Dose: 1.25 mg Documented By: BRYAN Artificial Tears (Artificial Tears 15 Ml Drops) 1 drop EYE-BOTH BID ALAN Last Admin: 10/29/22 08:54 Dose: 1 drop Documented By: CHAUNCEY Atorvastatin Calcium (Atorvastatin Calcium 10 Mg Tablet) 10 mg PO BEDTIME [facility] Last Admin: 10/28/22 21:11 Dose: 10 mg Documented By: PEPITO Bisacodyl (Bisacodyl 10 Mg Supp.Rect) 10 mg NC DAILY PRN PRN Reason: Constipation Chlordiazepoxide HCl (Chlordiazepoxide Hcl 5 Mg Capsule) 10 mg PO BEDTIME [facility] Last Admin: 10/28/22 21:11 Dose: 10 mg Documented By: PEPITO Dextrose (Dextrose 50 % 25 Gm/50 Ml Syringe) 25 gm IVPUSH Q15M PRN; Protocol PRN Reason: per Hypoglycemia Standing Ord. Docusate Sodium (Docusate Sodium 100 Mg Capsule) 100 mg PO DAILY PRN PRN Reason: Constipation Escitalopram Oxalate (Escitalopram Oxalate 20 Mg Tablet) 20 mg PO DAILY [facility] Last Admin: 10/29/22 08:48 Dose: 20 mg Documented By: CHAUNCEY Fluticasone/Vilanterol (Fluticasone/Vilanterol 200/25 Blst.W.Dev) 1 puff INHALE RDAILY [facility] Last Admin: 10/29/22 08:13 Dose: 1 puff Documented By: REANNA Glucose (Glucose Gel 15 Gm Gel..Gram.) 15 gm PO Q15M PRN; Protocol PRN Reason: per Hypoglycemia Standing Ord. Heparin Sodium (Porcine) (Heparin Sodium,Porcine 5,000 Unit/Ml Vial) 5,000 unit SUBCUT Q12H [facility] Last Admin: 10/29/22 01:38 Dose: 5,000 unit Documented By: BERENICE Hydroxychloroquine Sulfate (Hydroxychloroquine Sulfate 200 Mg Tablet) 200 mg PO DAILY [facility] Last Admin: 10/29/22 08:48 Dose: 200 mg Documented By: CHAUNCEY Hydroxyzine HCl (Hydroxyzine Hcl 25 Mg Tablet) 25 mg PO DAILY [facility] Last Admin: 10/29/22 08:49 Dose: 25 mg Documented By: CHAUNCEY Furosemide 200 mg/ Sodium (Chloride) 100 mls @ 2.5 mls/hr IVCONT .Q24H [facility] Last Admin: 10/28/22 12:31 Dose: 5 mg/hr, 2.5 mls/hr Documented By: BILL Meropenem 500 mg/ Sodium (Chloride) 50 mls @ 100 mls/hr IV Q12H [facility] Last Infusion: 10/29/22 09:38 Dose: 0 mls/hr Documented By: CHAUNCEY Insulin Glargine (Insulin Glargine,Hum.Rec.Anlog 100 Unit/Ml 10 Ml Vial) 16 unit SUBCUT BID [facility] Last Admin: 10/29/22 08:59 Dose: Not Given Documented By: CHAUNCEY Non-Admin Reason: hold per Insulin Human Lispro (Insulin Lispro 100 Unit/Ml 3 Ml Vial) 0 unit SUBCUT QIDACHS [facility]; Protocol Last Admin: 10/29/22 08:34 Dose: Not Given Documented By: CHAUNCEY Non-Admin Reason: No Insulin Coverage Latanoprost (Latanoprost 0.005 % Ophth Mona 2.5 Ml Drops) 1 drop EYE-BOTH BEDTIME [facility] Last Admin: 10/28/22 21:36 Dose: Not Given Documented By: PEPITO Non-Admin Reason: Med Not Available Levalbuterol HCl (Levalbuterol Hcl 1.25 Mg/3 Ml Vial.Neb) 1.25 mg INHALE RQID [facility] Last Admin: 10/29/22 08:13 Dose: 1.25 mg Documented By: REANNA Levothyroxine Sodium (Levothyroxine Sodium 175 Mcg Tablet) 175 mcg PO DAILY@0600 [facility] Last Admin: 10/29/22 05:17 Dose: 175 mcg Documented By: DARIEN Lorazepam (Lorazepam 0.5 Mg Tablet) 0.5 mg PO BID PRN PRN Reason: Anxiety Last Admin: 10/28/22 18:14 Dose: 0.5 mg Documented By: MONIQUE Magnesium Oxide (Magnesium Oxide 400 Mg Tablet) 200 mg PO DAILY [facility] Last Admin: 10/29/22 08:49 Dose: 200 mg Documented By: CHAUNCEY Melatonin (Melatonin 3 Mg Tablet) 6 mg PO BEDTIME [facility] Last Admin: 10/28/22 21:11 Dose: 6 mg Documented By: PEPITO Pt Own ([Calquence ( Acalabrutinib Mal)] 100 Mg Tab 100 mg PO BID [facility] Last Admin: 10/29/22 08:51 Dose: 100 mg Documented By: CHAUNCEY Non-Formulary Medication (Brinzolamide-Brimonidine [Simbrinza]) 1 drop EYE- RIGHT BID [facility] Non-Formulary Medication (Umeclidinium [Incruse Ellipta]) 1 inhalation INHALE DAILY [facility] Nystatin (Nystatin Powder 15 Gm Bottle) 1 appl TOPICAL BID [facility]; Protocol Last Admin: 10/28/22 21:36 Dose: Not Given Documented By: PEPITO Non-Admin Reason: Med Not Available Ondansetron HCl (Ondansetron Hcl 4 Mg/2 Ml Vial) 4 mg IVPUSH Q8H PRN PRN Reason: Nausea and Vomiting Pharmacy Consult (Consult Rx Perform Med Rec) 1 each MISCELLANE ONCE PRN PRN Reason: Consult order Polyethylene Glycol (Polyethylene Glycol 3350 17 Gm Powd.Pack) 17 gm PO BID [facility] Last Admin: 10/29/22 08:51 Dose: Not Given Documented By: CHAUNCEY Non-Admin Reason: patient refused Prednisolone Acetate (Prednisolone Acetate 1 % Oph Susp 5 Ml Drpbtl) 1 drop EYE-RIGHT DAILY [facility] Last Admin: 10/29/22 08:53 Dose: 1 drop Documented By: CHAUNCEY Prednisone (Prednisone 1 Mg Tablet) 6 mg PO DAILY [facility] Last Admin: 10/29/22 08:49 Dose: 6 mg Documented By: CHAUNCEY Senna (Sennosides 8.6 Mg Tablet) 17.2 mg PO DAILY PRN PRN Reason: Constipation Senna/Docusate Sodium (Sennosides/Docusate Sodium Tablet) 1 tab PO DAILY [facility] Last Admin: 10/29/22 08:49 Dose: 1 tab Documented By: CHAUNCEY Sodium Biphosphate/Sodium Phosphate (Sodium Phosphate,[place]-Dibasic 133 Ml Enema) 118 ml NC BEDTIME PRN PRN Reason: Constipation Sodium Chloride (0.9 % Sodium Chloride Flush 3 Ml Syringe) 3 ml IVFLUSH QSHIFT [facility] Last Admin: 10/29/22 08:54 Dose: 3 ml Documented By: CHAUNCEY Timolol Maleate (Timolol Maleate 0.5 % Oph Mona 5 Ml Drbtl) 1 drop EYE-RIGHT BID [facility] Last Admin: 10/29/22 08:54 Dose: 1 drop Documented By: CHAUNCEY Labs 10/29/22 08:30 10/29/22 08:30 Labs: Laboratory Results - last 24 hr 0710/28/22 10/28/22 21:55 15:09 17:08 MCV MCH MCHC RDW Plt Count MPV Absolute Nucleated RBC Nucleated RBC % (auto) Anion Gap Estim Creat Clear Calc Estimated GFR POC Glucose 212 H 209 H Random Glucose Calcium B-Natriuretic Peptide TSH Blood Type B Positive Antibody Screen NEGATIVE Crossmatch See Detail 10/28/22 10/28/22 10/28/22 20:29 21:12 22:20 MCV MCH MCHC RDW Plt Count MPV Absolute Nucleated RBC Nucleated RBC % (auto) Anion Gap 23 H Estim Creat Clear Calc 16.2 Estimated GFR 10 POC Glucose 228 H Random Glucose 227 H Calcium 9.3 B-Natriuretic Peptide 1161 H TSH Blood Type Antibody Screen Crossmatch 10/29/22 10/29/22 10/29/22 07:45 08:30 08:30 MCV 83.6 MCH 25.3 L MCHC 30.2 L RDW 14.6 Plt Count 221 MPV 12.3 Absolute Nucleated RBC 0.000 Nucleated RBC % (auto) 0.0 Anion Gap 22 H Estim Creat Clear Calc 16.8 Estimated GFR 10 POC Glucose 54 L* Random Glucose 55 L* Calcium 9.3 B-Natriuretic Peptide TSH 0.99 Blood Type Antibody Screen Crossmatch Assessment and Plan (1) (HFpEF) heart failure with preserved ejection fraction: Status: Acute (2) Sinus bradycardia: Status: Acute (3) Bradycardia: Status: Acute (4) LEO (acute kidney injury): Status: Acute (5) Morbid obesity: Status: Acute Plan 72-year-old female with past medical history of CHF, CLL, COPD, comes into the hospital with complaints of shortness of breath found to have CHF exacerbation, LEO, and hyperkalemia # acute diastolic CHF exacerbation - feeling better this morning ,less sob, no tachypnea heart rate is improving - BNP remains? elevated, difficult to assess volume status - on Bumex at home, continue IV Lasix drip, Will increase dose from 5 mg to 10 mg, cont paige for fluid management,strict I&O, daily weight, low sodium diet - echo showed normal EF, inferior vena cava severely dilated and does not garfield apse with inspiration suggestive of right heart strain -?case discussed with Cardiology and Nephrology they agree with above treatment plan # chronic hypoxic respiratory failure, continue oxygen support 2 L treat CHF as above, order CPAP at night ,patient with history of obstructive sleep apnea currently not on CPAP #? UTI positive urinalysis, with cloudy urine history of ESBL positive Proteus , on meropenem started on 10/28 hefollow urine cultures,? Chronic leukocytosis likely due to steroids/ history of CLL hypotension, LEO likely due to bradycardia, no fevers, no chills, no uri nary symptoms. # sinus bradycardia - secondary to hyperkalemia, metoprolol - patient asymptomatic, has no dizziness, no headache, no change in vision, no chest pain, no palpitations -? hold metoprolol continue pacer pad and tele monitoring # LEO -? seen by Nephrology? likely multifactorial cardiorenal syndrome/ acute tubular injury and obstructive uropathy - renal ultrasound showed mild left hydronephrosis, and mildly increased density and transition in size of the left ureter which may represent mass or possible minimally radiopaque calculus radiology recommend retrograde cystourethrogram for further evaluation Urology consultation -? continue diuretics, no significant change in renal function, follow BMP, avoid nephrotoxins, follow Nephro recommendations # hyperkalemia - likely multifactorial secondary to potassium supplement , as well as worsening? renal function -?received Lokelma 10 mg x 3, calcium gluconate, insulin, glucose, as well as Lasix potassium improved from 7-6.7 to 5.8 today, will repeat dose of Lokelma - follow BMP closely # history of COPD - no acute exacerbation - continue home inhalers # hypertension , on admission noted to be hypotensive likely due to bradycardia and LEO not due to sepsis -? BP improved continue to hold metoprolol # on chronic prednisone - continue home prednisone dose # diabetes -? low blood? sugars, on Lantus 16 units b.i.d. and insulin sliding scale, diabetic diet , will hold a.m. dose of Lantus and adjust dose to avoid # hypothyroidism - continue levothyroxine, TSH 0.99 #? morbid obesity recommend low-calorie diet. DVT prophylaxis:? Heparin subQ in my clinical judgment patient will need continued inpatient hospitalization for management of acute kidney injury, hyperkalemia UTI and bradycardia . Time Spent With Patient Time: Total time managing care of this patient today ____ minutes. Quality Stroke Does the patient have a stroke diagnosis?: No VTE Prior VTE?: No VTE Risk Level:: Medical - moderate - high VTE Device Contraindication: Treatment Not Indicated VTE Drug Contraindication: N/A - Med Ordered
--- NOTE | 2022-10-29 10:21 | PM.PNCARD ---
Subjective Subjective Date of Service: 10/29/22 Principal diagnosis: Acute kidney injury, bradycardia, decompensated heart failure. Interval history: Patient much more awake and says her breathing is much improved. She underwent a Turner catheter placement yesterday with findings of UTI and cloudy urine. Question urosepsis. She was started on Lasix drip yesterday although intake and output chart is not well charted. Seems like her urination shows clear urine. Blood pressure is stable. Heart rate is improved the 60s. Her creatinine still remains elevated. Her potassium is still elevated. Review of Systems Constitutional: Reports malaise Cardiovascular: Denies chest pain, Reports leg edema, Denies palpitations and Reports dyspnea Respiratory: Reports dyspnea Reports system reviewed and no additional complaints, except as documented Endocrine: Denies palpitations Physical Exam Vital Signs: Last Vital Signs Temp 97.0 F 10/29/22 07:15 Pulse 45 L 10/29/22 08:15 Resp 18 10/29/22 08:15 BP 136/63 10/29/22 07:15 Pulse Ox 92 10/29/22 07:15 O2 Del Method Room Air 10/29/22 07:15 O2 Flow Rate 3 10/29/22 02:42 Oxygen Flow Rate 4 10/27/22 20:01 BMI result Body Mass Index 46.9 Const General: cooperative, alert, in distress mild and respiratory and lethargic Nutritional Appearance: obese morbidly obese Orientation/consciousness: lethargic Neck Neck: Yes trachea midline, Yes supple and Yes other (Cannot evaluate JVD) Resp Effort & Inspection: decreased respiratory effort Auscultation: diminished lung sounds Cardio Rate: bradycardic Rhythm: regular rhythm Heart sounds: S1 normal heart sound present, S2 normal heart sound present, no click, no gallops and Murmur heart sound present systolic early Skin General skin exam: no rashes or lesions noted and ecchymosis Neuro General: moves all extremities Extrem General: No clubbing, No cyanosis, Yes edema and Yes venous stasis dermatitis Objective Labs and Meds 10/29/22 08:30 10/29/22 08:30 Lab results: Laboratory Results - last 24 hr 10/27/22 10/28/22 10/28/22 21:55 15:09 17:08 WBC RBC Hgb Hct MCV MCH MCHC RDW Plt Count MPV Absolute Nucleated RBC Nucleated RBC % (auto) Sodium Potassium Chloride Carbon Dioxide Anion Gap BUN Creatinine Estim Creat Clear Calc Estimated GFR POC Glucose 212 H 209 H Random Glucose Calcium B-Natriuretic Peptide TSH Blood Type B Positive Antibody Screen NEGATIVE Crossmatch See Detail 10/28/22 10/28/22 10/28/22 20:29 21:12 22:20 WBC RBC Hgb Hct MCV MCH MCHC RDW Plt Count MPV Absolute Nucleated RBC Nucleated RBC % (auto) Sodium 131 L Potassium 6.7 H* Chloride 98 Carbon Dioxide 17 L Anion Gap 23 H BUN 93 H Creatinine 4.34 H* Estim Creat Clear Calc 16.2 Estimated GFR 10 POC Glucose 228 H Random Glucose 227 H Calcium 9.3 B-Natriuretic Peptide 1161 H TSH Blood Type Antibody Screen Crossmatch 10/29/22 10/29/22 10/29/22 07:45 08:30 08:30 WBC 15.1 H RBC 3.36 L Hgb 8.5 L Hct 28.1 L MCV 83.6 MCH 25.3 L MCHC 30.2 L RDW 14.6 Plt Count 221 MPV 12.3 Absolute Nucleated RBC 0.000 Nucleated RBC % (auto) 0.0 Sodium 134 L Potassium 5.8 H Chloride 99 Carbon Dioxide 19 L Anion Gap 22 H BUN 95 H Creatinine 4.26 H* Estim Creat Clear Calc 16.8 Estimated GFR 10 POC Glucose 54 L* Random Glucose 55 L* Calcium 9.3 B-Natriuretic Peptide TSH 0.99 Blood Type Antibody Screen Crossmatch Imaging Radiologist's impression: Impressions Renal Ultrasound 10/28/22 13:54 IMPRESSION: Mild left hydronephrosis. Question region of mildly increased density and transition in size of the left ureter which may represent mass or possible minimally radiopaque calculus. Retrograde cystoureterography may be of help in further evaluation. . 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 Intake and output chart is difficult to assess in this patient. She underwent a Turner catheter placement yesterday and despite that appears to have positive balance. If diuresis is a goal would give her metolazone in addition to Lasix to see if she would have better urine output. Continue monitor renal function. If renal function does not improve and/or fluid status does not improve consider renal replacement therapy. Overall prognosis remains guarded given her poor functional status and now acute kidney injury. Consider CPAP therapy at nighttime. Supportive care. Continue treat sepsis/infection aggressively. (2) Sinus bradycardia: Status: Acute Assessment and Plan: Sinus bradycardia which is improving. Combination of metoprolol with acute kidney injury and hyperkalemia. Continue to discontinue metoprolol therapy and correct hyperkalemia. Will follow with you Time Spent With Patient Time: Total time managing care of this patient today ____ minutes. Progress Note: Quality Stroke Does the patient have a stroke diagnosis?: No Procedures Date of Service Date of Service: 10/29/22
--- NOTE | 2022-10-29 10:30 | MHC.CM.PN ---
IMM 10/29/22 DELIVERED TO BEDSIDE, CM MET W/PT AND FAMILY MEMBER AT BEDSIDE, PT REPORTS SHE LEFT [facility] MONDAY 10/23 AFTER HAVING AN EXTENSIVE REHAB STAY, PT HAS MAINLY BEEN IN BED HOWEVER DTR NIA WAS ABLE TO STAND HER ONE TIME, PT HAS A HOSPITAL BED, W/C, WALKER, COMFORT PLUS FOR SKILLED NSG AND DTR NIA AND MIKAELA GONZÁLES LIVE W/AND CARE FOR PT AT HOME. PER FAMILY AT BEDSIDE DTR/HCP NIA IS IN [place] AND MIKAELA GONZÁLES IS IN AND NOT SURE WHEN SHE WILL BE RELEASED. P'S GOAL FOR D/C IS TO RETURN HOME W/SERVICES. 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 PT VERIFIES PCP IS KENIA MACKENZIE, FULLY COVID VACC'D AND HCP IS SAMANTHA KRAMER THEREIN AND COPY ON FILE FROM PREVIOUS VISIT.
[2022-10-29 11:15] LABS: Glucose, Whole Blood 85 mg/dL (60-115)
[2022-10-29] MEDS: LORazepam 0.5 MG TABLET PO (13:11)
[2022-10-29] MEDS: Acetaminophen 325 MG TABLET 650 MG PO (13:12)
--- NOTE | 2022-10-29 14:42 | P.CDIM_ITS ---
PROVIDER RESPONSE TEXT: To clarify, the appropriate diagnosis supported by the clinical indicators: Other: ch resp failure see note today QUERY TEXT: PHYSICIAN'S DOCUMENTATION REQUEST Date of Query: 10/29/2022 08:27 AM EDT Patient Name: Cindy Toney Admit Date: 10/28/2022 Dear Krystal Guillen, A review of the medical record indicates additional documentation may be needed. Please review below and update the documentation accordingly. Clinical Indicators: ED 10/28 - Patient from correction with history of chronic respiratory failure with hypoxia. Cardiology note 10/28 - Acute hypoxemic respiratory failure in a patient who is morbidly obese mostly bedbound. pulse ox 91 L 4 liters NC RR 25 If possible, please further clarify the type and acuity of respiratory failure: Acute on chronic hypoxemic respiratory failure Acute hypoxemic respiratory failure Other please specify Other (explain)Clinically unable to determine (explain)Thank you, Krista Wright, CCS, CDIS Use of terms such as suspected, likely, concern for, or probable (associated with a specific diagnosi s that is being evaluated, monitored, or treated as if it exists) are acceptable and can be coded in the inpatient se tting, when documented at the time of discharge. Please use your independent medical judgment in providing your response. THIS QUERY IS PART OF THE PERMANENT MEDICAL RECORD
[2022-10-29] MEDS: Furosemide 200 MG in 0.9 % Sodium Chloride 80 ML IVCONT (15:17)
[2022-10-29 16:41] LABS: Glucose, Whole Blood 148 mg/dL (60-115)
[2022-10-29] MEDS: Sodium Zirconium Cyclosilicate 5 GM POWD.PACK PO (16:42)
--- NOTE | 2022-10-29 18:42 | P.PNNP_ITS ---
Subjective Subjective Date of Service: 10/29/22 Principal diagnosis: Acute kidney injury, bradycardia, decompensated heart failure. Interval history: Seen and examined,e vents noted Based I/O dcumented no signif diuresis Physical Exam Vital Signs: Vital Signs: Last Vital Signs Temp 98.8 F 10/29/22 15:34 Pulse 38 L 10/29/22 15:40 Resp 16 10/29/22 15:40 BP 118/53 L 10/29/22 15:34 Pulse Ox 86 L 10/29/22 15:34 O2 Del Method Nasal Cannula 10/29/22 15:34 O2 Flow Rate 2 10/29/22 10:55 Oxygen Flow Rate 4 10/27/22 20:01 BMI result Body Mass Index 46.9 Const: General: alert and awake HEENT: Head: Yes normocephalic and Yes atraumatic Neck: Neck: Yes supple Resp: Auscultation: diminished lung sounds Cardio: Rate: bradycardic Heart sounds: S1 normal heart sound present and S2 normal heart sound present GI: Palpation (GI): Soft to palpation and nontender Extrem: General: Yes pedal edema Objective Data Labs 10/29/22 08:30 10/29/22 08:30 Labs: Laboratory Results - last 24 hr 10/28/22 10/28/22 10/28/22 20:29 21:12 22:20 WBC RBC Hgb Hct MCV MCH MCHC RDW Plt Count MPV Absolute Nucleated RBC Nucleated RBC % (auto) Sodium 131 L Potassium 6.7 H* Chloride 98 Carbon Dioxide 17 L Anion Gap 23 H BUN 93 H Creatinine 4.34 H* Estim Creat Clear Calc 16.2 Estimated GFR 10 POC Glucose 228 H Random Glucose 227 H Calcium 9.3 B-Natriuretic Peptide 1161 H TSH 10/29/22 10/29/22 10/29/22 07:45 08:30 08:30 WBC 15.1 H RBC 3.36 L Hgb 8.5 L Hct 28.1 L MCV 83.6 MCH 25.3 L MCHC 30.2 L RDW 14.6 Plt Count 221 MPV 12.3 Absolute Nucleated RBC 0.000 Nucleated RBC % (auto) 0.0 Sodium 134 L Potassium 5.8 H Chloride 99 Carbon Dioxide 19 L Anion Gap 22 H BUN 95 H Creatinine 4.26 H* Estim Creat Clear Calc 16.8 Estimated GFR 10 POC Glucose 54 L* Random Glucose 55 L* Calcium 9.3 B-Natriuretic Peptide TSH 0.99 10/29/22 10/29/22 11:07 16:31 WBC RBC Hgb Hct MCV MCH MCHC RDW Plt Count MPV Absolute Nucleated RBC Nucleated RBC % (auto) Sodium Potassium Chloride Carbon Dioxide Anion Gap BUN Creatinine Estim Creat Clear Calc Estimated GFR POC Glucose 85 148 H Random Glucose Calcium B-Natriuretic Peptide TSH Microbiology Microbiology Results: Microbiology 10/28/22 Unknown Urine clean catch - Urine malik top Urine Culture - Preliminary Culture in progress. Procedures Date of Service Date of Service: 10/29/22 Assessment & Plan Assessment and plan (1) LEO (acute kidney injury): Status: Acute (2) Hyperkalemia: Status: Acute (3) (HFpEF) heart failure with preserved ejection fraction: Status: Acute (4) CKD (chronic kidney disease) stage 3, GFR 30-59 ml/min: Status: Acute Plan Non-Oliguric LEO with workig Dx of CRSyn but need to broadne the Dx given abnl UA need to r/o AGN, AIN Obs uropathy is a definite concern given abnl u/s and CT--UROL to see dCHF: poorly responsive to current dose of diuretics REC: incr diuretics--lasix drip to 10 and poss 20mg/hr; add zaroxlyn if needed; urol eval; sero as ordered; may need to consider Dx kidney Bx early next week depending on clinic course; no indication for PRECISION CROP MANAGER yet Lokelma ordered will follow nithya with team Time Spent With Patient Time: Total time managing care of this patient today ____ minutes. Progress Note: Quality Stroke Does the patient have a stroke diagnosis?: No
[2022-10-29] MEDS: Sodium Zirconium Cyclosilicate 10 GM POWD.PACK PO (19:13)
[2022-10-29 20:04] LABS: Glucose, Whole Blood 134 mg/dL (60-115)
[2022-10-29] MEDS: Atorvastatin Calcium 10 MG TABLET PO (20:31)
[2022-10-29] MEDS: Nystatin Powder 15 GM BOTTLE 1 APPL TOPICAL (20:32)
[2022-10-29] MEDS: chlordiazePOXIDE HCl 5 MG CAPSULE 10 MG PO (20:36)
[2022-10-30] VITALS (36 sets, daily range): BP systolic 91–147; BP diastolic 27–85; PULSE 40–93; RESP 15–23; TEMP 36–36.8; O2SAT 86–100; BMI 47.7
[2022-10-30] MEDS: 0.9 % Sodium Chloride Flush 3 ML SYRINGE IVFLUSH ×4 (00:26→23:41)
[2022-10-30] MEDS: Heparin Sodium,Porcine 5,000 UNIT/ML VIAL 5000 UNIT SUBCUT ×2 (01:15→12:33)
[2022-10-30] MEDS: Levothyroxine Sodium 175 MCG TABLET PO (06:20)
--- NOTE | 2022-10-30 06:29 | PC.NURSE ---
Addendum entered by Susan Loving RN 10/30/22 06:41: correction: U/OO of 800cc this shift. Lasix drip remains at 10mg/hr. Original Note: pt. legally blind can see shadows only per patient. VSS. Pt. alert when awake and oriented to place, month and year. Due to blindness, reorient pt. frequently. Pt. denies SOB at rest. +dyspnea on exertion with use of abd. muscles and pursed lip breathing to recover. Recovers briskly. O2 sat's 92-94% on 3L NC. RLL with fine crackles. Pitting edema bilateral and venous stasis to BLE. POC at bedtime was 134. Pt. did not eat dinner. Pt. due for 2099 16 units of Lantus. Reported to Dr. Atkinson and per MD Lantus HELD at bedtime. F/C in place with cloudy yellow urine. U/O (see I/O's) was 1000ml. Pt. repositioned in ed and medicated with 650mg of oral Tylenol t 0110 for c/o 9/10 neck pain with some relief per pt.
[2022-10-30 07:39] LABS: Glucose, Whole Blood 93 mg/dL (60-115)
[2022-10-30 07:45] LABS: Anion Gap 20 (12-20); Blood Urea Nitrogen 97 mg/dL (9-16); Calcium 8.6 mg/dL (8.4-10.2); Carbon Dioxide 20 mmol/L (22-29); Chloride 100 mmol/L (96-108); Creatinine Clr Calc Pharmacy 16.8; Estimated Glomerular Filt Rate 10; Glucose Random 94 mg/dL (60-115); Potassium 4.6 mmol/L (3.3-5.1); Sodium 135 mmol/L (135-145)
[2022-10-30] MEDS: levalbuterol HCL 1.25 MG/3 ML VIAL.NEB INHALE ×4 (07:53→20:06)
[2022-10-30] MEDS: Fluticasone/Vilanterol 200/25 BLST.W.DEV 1 PUFF INHALE (07:53)
[2022-10-30] MEDS: predniSONE 1 MG TABLET 6 MG PO (08:19)
[2022-10-30] MEDS: Sennosides/Docusate Sodium TABLET 1 TAB PO (08:21)
[2022-10-30] MEDS: hydrOXYzine HCL 25 MG TABLET PO (08:21)
[2022-10-30] MEDS: Hydroxychloroquine Sulfate 200 MG TABLET PO (08:21)
[2022-10-30] MEDS: Magnesium Oxide 400 MG TABLET 200 MG PO (08:21)
[2022-10-30] MEDS: Escitalopram Oxalate 20 MG TABLET PO (08:21)
[2022-10-30] MEDS: timoloL maleate 0.5 % Oph Sol 5 ML DRBTL 1 DROP EYE-RIGHT ×2 (08:27→22:20)
[2022-10-30] MEDS: prednisoLONE Acetate 1 % Oph Susp 5 ML DRPBTL 1 DROP EYE-RIGHT (08:27)
[2022-10-30] MEDS: Artificial Tears 15 ML DROPS 1 DROP EYE-BOTH ×2 (08:27→22:20)
[2022-10-30] MEDS: Furosemide 200 MG in 0.9 % Sodium Chloride 80 ML IVCONT (10:58)
[2022-10-30 11:48] LABS: Glucose, Whole Blood 159 mg/dL (60-115)
--- NOTE | 2022-10-30 12:22 | P.PNIM_ITS ---
Subjective Subjective Date of Service: 10/30/22 Interval History: complaining of left upper arm discomfort at site of IV with seemed to have infiltrated, otherwise feeling better denies shortness of breath, no overnight events but noted to have soft blood pressure and heart rate in 40s, and as low as in mid 30s with 2:1 block ,denies chest pain, no lightheadedness, no dizziness, tolerating diet no nausea, no vomiting, no abdominal pain, no other acute issues. Review of Systems All other system reviewed and negative. Physical Exam Vital Signs: Vital Signs: Last Vital Signs Temp 97.0 F 10/30/22 07:38 Pulse 72 10/30/22 07:38 Resp 18 10/30/22 11:31 BP 97/51 L 10/30/22 07:38 Pulse Ox 100 10/30/22 07:38 O2 Del Method Nasal Cannula 10/30/22 07:38 O2 Flow Rate 3 10/30/22 07:38 Oxygen Flow Rate 4 10/27/22 20:01 BMI result Body Mass Index 47.7 Const: Other: Gen: awake alert x3 ,no acute resp.distress HEENT: sclera anicteric, moist mucus membranes Neck: supple, no?JVD Lungs: diminished breath sounds,few wheeze,? no tachypnea, no crackles Heart: regular?rate and rhythm,no murmurs Abd: soft, obese,non-tender, bowel sounds audible,ecchmosis Ext: discoloration both legs,?Rt leg worsening swelling ,non?pitting edema,no tenderness no change in discoloration , left upper arm infiltration around IV Right dorsum of hand swollen,good radial pulse. Skin:? multiple areas of ecchymosis, Neuro: alert and oriented x3, no focal findings Psych: appropriate affect Objective Data Active Medications Acetaminophen (Acetaminophen 325 Mg Tablet) 650 mg PO Q6H PRN PRN Reason: Pain, Mild (Pain Scale 1-3) Last Admin: 10/29/22 13:12 Dose: 650 mg Documented By: CHAUNCEY Albuterol Sulfate (Albuterol Sulfate (0.042%) 1.25 Mg/3 Ml Vial.Neb) 1.25 mg INHALE Q2H PRN PRN Reason: Wheezing Last Admin: 10/28/22 21:59 Dose: 1.25 mg Documented By: HO.WILSOK Artificial Tears (Artificial Tears 15 Ml Drops) 1 drop EYE-BOTH BID [facility] Last Admin: 10/30/22 08:27 Dose: 1 drop Documented By: ANUPAMA Atorvastatin Calcium (Atorvastatin Calcium 10 Mg Tablet) 10 mg PO BEDTIME [facility] Last Admin: 10/29/22 20:31 Dose: 10 mg Documented By: IRINA Bisacodyl (Bisacodyl 10 Mg Supp.Rect) 10 mg GA DAILY PRN PRN Reason: Constipation Chlordiazepoxide HCl (Chlordiazepoxide Hcl 5 Mg Capsule) 10 mg PO BEDTIME [facility] Last Admin: 10/29/22 20:36 Dose: 10 mg Documented By: IRINA Dextrose (Dextrose 50 % 25 Gm/50 Ml Syringe) 25 gm IVPUSH Q15M PRN; Protocol PRN Reason: per Hypoglycemia Standing Ord. Docusate Sodium (Docusate Sodium 100 Mg Capsule) 100 mg PO DAILY PRN PRN Reason: Constipation Escitalopram Oxalate (Escitalopram Oxalate 20 Mg Tablet) 20 mg PO DAILY [facility] Last Admin: 10/30/22 08:21 Dose: 20 mg Documented By: ANUPAMA Fluticasone/Vilanterol (Fluticasone/Vilanterol 200/25 Blst.W.Dev) 1 puff INHALE RDAILY [facility] Last Admin: 10/30/22 07:53 Dose: 1 puff Documented By: JUS Glucose (Glucose Gel 15 Gm Gel..Gram.) 15 gm PO Q15M PRN; Protocol PRN Reason: per Hypoglycemia Standing Ord. Heparin Sodium (Porcine) (Heparin Sodium,Porcine 5,000 Unit/Ml Vial) 5,000 unit SUBCUT Q12H [facility] Last Admin: 10/30/22 01:15 Dose: 5,000 unit Documented By: IRINA Hydroxychloroquine Sulfate (Hydroxychloroquine Sulfate 200 Mg Tablet) 200 mg PO DAILY [facility] Last Admin: 10/30/22 08:21 Dose: 200 mg Documented By: ANUPAMA Hydroxyzine HCl (Hydroxyzine Hcl 25 Mg Tablet) 25 mg PO DAILY [facility] Last Admin: 10/30/22 08:21 Dose: 25 mg Documented By: ANUPAMA Meropenem 500 mg/ Sodium (Chloride) 50 mls @ 100 mls/hr IV Q12H [facility] Last Infusion: 10/30/22 09:15 Dose: 0 mls/hr Documented By: ANUPAMA Furosemide 200 mg/ Sodium (Chloride) 100 mls @ 5 mls/hr IVCONT .Q20H [facility] Last Admin: 10/30/22 10:58 Dose: 10 mg/hr, 5 mls/hr Documented By: ANUPAMA Insulin Glargine (Insulin Glargine,Hum.Rec.Anlog 100 Unit/Ml 10 Ml Vial) 16 unit SUBCUT BID [facility] Last Admin: 10/30/22 09:14 Dose: Not Given Documented By: ANUPAMA Non-Admin Reason: No Insulin Coverage Insulin Human Lispro (Insulin Lispro 100 Unit/Ml 3 Ml Vial) 0 unit SUBCUT QIDACHS [facility]; Protocol Last Admin: 10/30/22 09:13 Dose: Not Given Documented By: ANUPAMA Non-Admin Reason: No Insulin Coverage Latanoprost (Latanoprost 0.005 % Ophth Mona 2.5 Ml Drops) 1 drop EYE-BOTH BEDTIME [facility] Last Admin: 10/29/22 20:37 Dose: Not Given Documented By: IRINA Non-Admin Reason: Patient Refused Levalbuterol HCl (Levalbuterol Hcl 1.25 Mg/3 Ml Vial.Neb) 1.25 mg INHALE RQID [facility] Last Admin: 10/30/22 11:30 Dose: 1.25 mg Documented By: JUS Levothyroxine Sodium (Levothyroxine Sodium 175 Mcg Tablet) 175 mcg PO DAILY@0600 [facility] Last Admin: 10/30/22 06:20 Dose: 175 mcg Documented By: IRINA Lorazepam (Lorazepam 0.5 Mg Tablet) 0.5 mg PO BID PRN PRN Reason: Anxiety Last Admin: 10/28/22 18:14 Dose: 0.5 mg Documented By: FOGARTB Magnesium Oxide (Magnesium Oxide 400 Mg Tablet) 200 mg PO DAILY [facility] Last Admin: 10/30/22 08:21 Dose: 200 mg Documented By: ANUPAMA Melatonin (Melatonin 3 Mg Tablet) 6 mg PO BEDTIME [facility] Last Admin: 10/29/22 20:38 Dose: Not Given Documented By: IRINA Non-Admin Reason: pt drowsy Pt Own ([Calquence ( Acalabrutinib Mal)] 100 Mg Tab 100 mg PO BID [facility] Last Admin: 10/30/22 10:54 Dose: 100 mg Documented By: ANUPAMA Non-Formulary Medication (Brinzolamide-Brimonidine [Simbrinza]) 1 drop EYE-RIGH T BID [facility] Non-Formulary Medication (Umeclidinium [Incruse Ellipta]) 1 inhalation INHALE DAILY [facility] Nystatin (Nystatin Powder 15 Gm Bottle) 1 appl TOPICAL BID [facility]; Protocol Last Admin: 10/29/22 20:32 Dose: 1 appl Documented By: IRINA Ondansetron HCl (Ondansetron Hcl 4 Mg/2 Ml Vial) 4 mg IVPUSH Q8H PRN PRN Reason: Nausea and Vomiting Pharmacy Consult (Consult Rx Perform Med Rec) 1 each MISCELLANE ONCE PRN PRN Reason: Consult order Polyethylene Glycol (Polyethylene Glycol 3350 17 Gm Powd.Pack) 17 gm PO BID [facility] Last Admin: 10/30/22 08:28 Dose: Not Given Documented By: ANUPAMA Non-Admin Reason: Patient Refused Prednisolone Acetate (Prednisolone Acetate 1 % Oph Susp 5 Ml Drpbtl) 1 drop EYE-RIGHT DAILY [facility] Last Admin: 10/30/22 08:27 Dose: 1 drop Documented By: ANUPAMA Prednisone (Prednisone 1 Mg Tablet) 6 mg PO DAILY [facility] Last Admin: 10/30/22 08:19 Dose: 6 mg Documented By: ANUPAMA Senna (Sennosides 8.6 Mg Tablet) 17.2 mg PO DAILY PRN PRN Reason: Constipation Senna/Docusate Sodium (Sennosides/Docusate Sodium Tablet) 1 tab PO DAILY [facility] Last Admin: 10/30/22 08:21 Dose: 1 tab Documented By: ANUPAMA Sodium Biphosphate/Sodium Phosphate (Sodium Phosphate,[place]-Dibasic 133 Ml Enema) 118 ml GA BEDTIME PRN PRN Reason: Constipation Sodium Chloride (0.9 % Sodium Chloride Flush 3 Ml Syringe) 3 ml IVFLUSH QSHIFT [facility] Last Admin: 10/30/22 08:27 Dose: 3 ml Documented By: ANUPAMA Timolol Maleate (Timolol Maleate 0.5 % Oph Mona 5 Ml Drbtl) 1 drop EYE-RIGHT BID [facility] Last Admin: 10/30/22 08:27 Dose: 1 drop Documented By: ANUPAMA Labs 10/29/22 08:30 10/30/22 06:28 Labs: Laboratory Results - last 24 hr 10/29/22 10/29/22 10/30/22 16:31 19:55 06:28 Anion Gap 20 Estim Creat Clear Calc 16.8 Estimated GFR 10 POC Glucose 148 H 134 H Random Glucose 94 Calcium 8.6 D 10/30/22 10/30/22 07:28 11:35 Anion Gap Estim Creat Clear Calc Estimated GFR POC Glucose 93 159 H Random Glucose Calcium Microbiology Microbiology Results: Microbiology 10/28/22 Unknown Urine Culture - Preliminary Urine clean catch - Urine malik top Gram negative sancho Assessment and Plan (1) (HFpEF) heart failure with preserved ejection fraction: Status: Acute (2) Sinus bradycardia: Status: Acute (3) Bradycardia: Status: Acute (4) LEO (acute kidney injury): Status: Acute (5) Morbid obesity: Status: Acute Plan 72-year-old female with past medical history of CHF, CLL, COPD, comes into the hospital with complaints of shortness of breath found to have CHF exacerbation, LEO, and hyperkalemia # acute diastolic CHF exacerbation - feeling better this morning ,less sob, no tachypnea , BNP remains? elevated, difficult to assess volume status - on Bumex at home, continue IV Lasix drip, 10 mg/h, cont. gibson for fluid management,- 600 ml in 24 h - echo showed normal EF, Impaired diastolic function, inferior vena cava severely dilated and does not collapse with inspiration suggestive of right heart strain being followed by Cardiology and Nephrology, continue current diuretics and monitor renal function and strict eyes and nose # chronic hypoxic respiratory failure, continue oxygen support 2 L treat CHF as above, order CPAP at night ,patient with history of obstructive sleep apnea currently not on CPAP #? UTI positive urinalysis, with cloudy urine history of ESBL positive Proteus , on meropenem started on 10/28 , urine culture grew Gram-negative rods, Chronic leukocytosis likely due to steroids/ history of CLL WBC trending down, hypotension, LEO likely due to bradycardia, no fevers, no chills, no urinary symptoms. # right lower extremity swelling worsened before, nontender to palpation, no warmth, no change in color, will obtain ultrasound rule out DVT, no evidence of necrotizing fasciitis. # sinus bradycardia with 2:1blocks/ - secondary to hyperkalemia, metoprolol, patient asymptomatic, no dizziness, no headache, no change in vision, no chest pain, no palpitations -? but heart rate and BP remains soft despite holding metoprolol for last several days,pacer pad in place patient is now being transferred to ICU for close cardiac monitoring. # LEO -? seen by Nephrology? likely multifactorial cardiorenal syndrome/ acute tubular injury and obstructive uropathy and also concern for AIN, AGN - renal ultrasound showed mild left hydronephrosis, and mildly increased density and transition in size of the left ureter which may represent mass or possible minimally radiopaque calculus radiology recommend retrograde cystourethrogram for further evaluation Urology consult obtained to be seen by Dr. Silveira -? continue diuretics, no significant change in renal function, follow BMP, avoid nephrotoxins, follow Nephro recommendations # hyperkalemia resolved - likely multifactorial secondary to potassium supplement , as well as worsening? renal function -?received Lokelma 10 mg x 4, calcium gluconate, insulin, glucose, as well as Lasix - follow BMP closely # history of COPD - no acute exacerbation,- continue home inhalers # hypertension , on admission noted to be hypotensive likely due to bradycardia and LEO not due to sepsis,? BP remains soft patient asymptomatic follow BP closely. # on chronic prednisone - continue home prednisone dose # diabetes -? low blood? sugars, will change Lantus to 10 units at bedtime, continue insulin sliding scale, diabetic diet # hypothyroidism - continue levothyroxine, TSH 0.99 #? morbid obesity recommend low-calorie diet. DVT prophylaxis:? Heparin subQ disposition being transferred to intensive care unit for close clinical monitor ing for sinus bradycardia with dose to 1 block persistent acute kidney injury and CHF. Time Spent With Patient Time: Total time managing care of this patient today ____ minutes. Quality Stroke Does the patient have a stroke diagnosis?: No VTE Prior VTE?: No VTE Risk Level:: Medical - moderate - high VTE Device Contraindication: Treatment Not Indicated VTE Drug Contraindication: N/A - Med Ordered
[2022-10-30] MEDS: Insulin Lispro 100 UNIT/ML 3 ML VIAL SUBCUT ×2 (12:33→22:36)
[2022-10-30] MEDS: Nystatin Powder 15 GM BOTTLE 1 APPL TOPICAL ×2 (12:34→22:38)
--- NOTE | 2022-10-30 14:16 | PM.CCN ---
Critical Care Event Note Summary Date of Service: 10/30/22 Code activated: No Narrative: 72 y/o lady with underlying multiple medical issues admitted on 10/28/2022 with LEO, hyperkalemia, and bradycardia monitored on telemetry escobedo, hemodynamically stable, but with bradycardia down to 40, now being transferred to ICU for close monitoring. Critical Care Time (minutes): 0
--- NOTE | 2022-10-30 14:58 | PM.PNCARD ---
Subjective Subjective Date of Service: 10/30/22 Principal diagnosis: Acute kidney injury, bradycardia, decompensated heart failure. Interval history: Patient seen at bedside. Patient's daughter present at bedside. Patient says her shortness of breath is improved although she has not had much urine output. She remains bradycardiac an color television console monitor today shows 2 is to 1 block. She has still narrow QRS complex consistent with that the block is at AV kelly level. Patient continues to have elevated creatinine. Potassium has improved. Patient's UTI with Gram-negative rods. She also has skin lesions. Continues to use oxygen. Poor functional capacity overall. Review of Systems Constitutional: Reports lethargy Eyes: Reports no additional eye complaints Cardiovascular: Reports leg edema and Reports dyspnea (Improved) Respiratory: Reports dyspnea (Improved) Gastrointestinal: Reports no additional gastrointestinal complaints Musculoskeletal: Reports no additional musculoskeletal complaints Physical Exam Vital Signs: Last Vital Signs Temp 97.0 F 10/30/22 12:00 Pulse 41 L 10/30/22 12:00 Resp 20 10/30/22 12:00 BP 104/51 L 10/30/22 12:00 Pulse Ox 95 10/30/22 12:00 O2 Del Method Room Air 10/30/22 12:00 O2 Flow Rate 3 10/30/22 07:38 Oxygen Flow Rate 4 10/27/22 20:01 BMI result Body Mass Index 47.7 Const General: cooperative, alert, in distress mild and respiratory and lethargic Nutritional Appearance: obese morbidly obese Orientation/consciousness: lethargic Neck Neck: Yes trachea midline, Yes supple and Yes other (Cannot evaluate JVD) Resp Effort & Inspection: decreased respiratory effort Auscultation: diminished lung sounds Cardio Rate: bradycardic Rhythm: regular rhythm Heart sounds: S1 normal heart sound present, S2 normal heart sound present, no click, no gallops and Murmur heart sound present systolic early Skin General skin exam: no rashes or lesions noted and ecchymosis Neuro General: moves all extremities Extrem General: No clubbing, No cyanosis, Yes edema and Yes venous stasis dermatitis Objective Labs and Meds 10/29/22 08:30 10/30/22 06:28 Lab results: Laboratory Results - last 24 hr 10/29/22 10/29/22 10/30/22 16:31 19:55 06:28 Sodium 135 Potassium 4.6 D Chloride 100 Carbon Dioxide 20 L Anion Gap 20 BUN 97 H Creatinine 4.30 H* Estim Creat Clear Calc 16.8 Estimated GFR 10 POC Glucose 148 H 134 H Random Glucose 94 Calcium 8.6 D 10/30/22 10/30/22 07:28 11:35 Sodium Potassium Chloride Carbon Dioxide Anion Gap BUN Creatinine Estim Creat Clear Calc Estimated GFR POC Glucose 93 159 H Random Glucose Calcium Imaging Radiologist's impression: Impressions Venous Duplex 10/30/22 13:30 IMPRESSION: No DVT demonstrated in the visualized right lower extremity, however the peroneal vein was not identified limiting evaluation. Progress Note: A&P Assessment and plan (1) Bradycardia: Status: Acute Assessment and Plan: Patient persists with bradycardia now is 2 is to 1 av block. She had this as well in the past. This appears to be block at the AV kelly level most likely related to beta-jos therapy. This is most likely due to elevated level is due to her underlying acute kidney injury. She is no longer having hyperkalemia. I am not sure if she will benefit from RV pacing at this point in time given that she is going to low-dose AV synchrony. However she persists with significant bradycardia after many days will need to pursue consideration for permanent pacing therapy family so wishes. However overall prognosis from her longstanding multiple comorbidities and medical problem is poor. This was discussed with patient patient's daughter at bedside. Avoid rate lowering medications (2) CHF exacerbation: Status: Acute Assessment and Plan: CHF exacerbation with IVC plethora. Patient appears fluid overload all difficult to assess given her body habitus. I would continue IV diuresis. She has had poor response overall to high-intensity diuretic therapy. Consider either renal replacement therapy or intensifying diuretic regimen. Continue treat for underlying bacteremia as well as supportive care for her poor respiratory status and obesity hypoventilation syndrome. As again mention prognosis is guarded. Will follow with you Time Spent With Patient Time: Total time managing care of this patient today ____ minutes. Progress Note: Quality Stroke Does the patient have a stroke diagnosis?: No Procedures Date of Service Date of Service: 10/30/22
[2022-10-30] MEDS: Albumin Human 25 % 100 ML IV ×2 (15:13→22:04)
--- NOTE | 2022-10-30 15:36 | PM.PNNEP ---
Subjective Subjective Date of Service: 10/30/22 Principal diagnosis: Acute kidney injury, bradycardia, decompensated heart failure. Interval history: Seen and examned, events noted Physical Exam Vital Signs: Vital Signs: Last Vital Signs Temp 97.0 F 10/30/22 12:00 Pulse 41 L 10/30/22 12:00 Resp 20 10/30/22 12:00 BP 104/51 L 10/30/22 12:00 Pulse Ox 95 10/30/22 12:00 O2 Del Method Room Air 10/30/22 12:00 O2 Flow Rate 3 10/30/22 07:38 Oxygen Flow Rate 4 10/27/22 20:01 BMI result Body Mass Index 47.7 Const: General: alert and awake HEENT: Head: Yes normocephalic and Yes atraumatic Neck: Neck: Yes supple Resp: Auscultation: diminished lung sounds Cardio: Rate: bradycardic Heart sounds: S1 normal heart sound present and S2 normal heart sound present GI: Palpation (GI): Soft to palpation and nontender Extrem: General: Yes pedal edema Objective Data Labs 10/29/22 08:30 10/30/22 06:28 Labs: Laboratory Results - last 24 hr 10/29/22 10/29/22 10/30/22 16:31 19:55 06:28 Sodium 135 Potassium 4.6 D Chloride 100 Carbon Dioxide 20 L Anion Gap 20 BUN 97 H Creatinine 4.30 H* Estim Creat Clear Calc 16.8 Estimated GFR 10 POC Glucose 148 H 134 H Random Glucose 94 Calcium 8.6 D 10/30/22 10/30/22 07:28 11:35 Sodium Potassium Chloride Carbon Dioxide Anion Gap BUN Creatinine Estim Creat Clear Calc Estimated GFR POC Glucose 93 159 H Random Glucose Calcium Microbiology Microbiology Results: Microbiology 10/28/22 Unknown Urine clean catch - Urine malik top Urine Culture - Preliminary Gram negative sancho Procedures Date of Service Date of Service: 10/30/22 Assessment & Plan Assessment and plan (1) LEO (acute kidney injury): Status: Acute (2) Hyperkalemia: Status: Acute (3) (HFpEF) heart failure with preserved ejection fraction: Status: Acute (4) CKD (chronic kidney disease) stage 3, GFR 30-59 ml/min: Status: Acute Plan Non-Oliguric LEO with workig Dx of CRSyn and now with signif BRADYCARDIA playing a signif role ? but need to broaden the Dx given abnl UA need to r/o AGN, AIN--sero sent Obs uropathy is a definite concern given abnl u/s and CT--UROL to see dCHF: poorly responsive to current dose of diuretics REC: cont diuretics as BPtolerates--lasix drip to 10 and poss 20mg/hr; add zaroxlyn if needed; check with Card re:PPM urol eval; sero as ordered; may need to consider Dx kidney Bx early next week depending on clinic course; no indication for ASSISTANT EDITOR yet Lokelma prn if K >5.3 will follow nithya with team Time Spent With Patient Time: Total time managing care of this patient today ____ minutes. Progress Note: Quality Stroke Does the patient have a stroke diagnosis?: No
--- NOTE | 2022-10-30 15:53 | PM.UROCN ---
History of Present Illness Consult details Consult date: 10/30/22 Narrative: CC: LEO, left mild hydro 72-year-old female Admit to hospital from assisted. Brought by ambulance for Shortness of breath and weakness. Heart rate in emergency room in the 30s, blood sugars 400. Past medical history of hypertension, diabetes, congestive heart failure. Denied chest pain, palpations, abdominal pain, nausea, vomiting, no urinary symptoms. Laboratories hematocrit 28.1, creatinine 4.3, WBC 15.1 Imaging - The kidneys are normal in size, shape, and attenuation. Mild left hydronephrosis noted. No calculi. Micro - Urine gram negative rods Consistent with - Ascending left pyelonephristis with acute on chronic renal insult Treatment - abx and hydration - will stent if not improving Review of Systems Constitutional: Constitutional: Reports as per HPI and Reports no additional constitutional complaints Cardiovascular: Cardiovascular: Reports as per HPI and Reports no additional cardiovascular complaints Respiratory: Respiratory: Reports as per HPI and Reports no additional respiratory complaints Gastrointestinal: Gastrointestinal: Reports as per HPI and Reports no additional gastrointestinal complaints Genitourinary: Genitourinary: Reports as per HPI Musculoskeletal: Musculoskeletal: Reports no additional musculoskeletal complaints and Reports as per HPI Neurologic: Reports system reviewed and no additional complaints, except as documented and Reports as per HPI PMF Past Medical History Medical History (Updated 10/30/22 @ 16:52 by Juan Silveira MD) Acute respiratory failure Bradycardia Chronic lymphocytic leukemia (CLL), B-cell CKD (chronic kidney disease) CLL (chronic lymphocytic leukemia) Congestive heart failure Congestive heart failure COVID COVID-19 Diabetes mellitus with insulin therapy Dyspnea Essential hypertension HLD (hyperlipidemia) HTN (hypertension) Hypothyroidism Hypoxia Infection with ESBL Klebsiella oxytoca Influenza A Klebsiella pneumonia Lower extremity edema Lymphadenopathy, mediastinal Migraine Obesity Pleural effusion Pleural effusion Pneumonia due to COVID-19 virus Pseudotumor cerebri PVD (peripheral vascular disease) Suspected deep tissue injury Family History Family History Mother Heart attack, Onset Age: 92 Father Heart attack, Onset Age: 66 Other Diabetes Surgical History Surgical History H/O cataract extraction H/O hysterectomy for benign disease Hx of cholecystectomy S/P appendectomy Social History Social History Household Members: Family Household Members Other:: patient came from a rehab facility, been there since dec Housing: House Do you presently have visiting nurse or other home services: Yes Alcohol intake: never Patient Tobacco Use Status: Former Tobacco user Advance Directives Date on File: 09/26/20 service: No Current occupational status: disabled Meds Allergies Allergy/AdvReac Type Severity Reaction Status Date / Time oxycodone [From Percocet] Allergy Intermediate Rash Verified 04/27/22 11:42 lisinopril Allergy Unknown Unknown Verified 04/27/22 11:42 Active Medications: Current Medications Acetaminophen (Acetaminophen 325 Mg Tablet) 650 mg PO Q6H PRN PRN Reason: Pain, Mild (Pain Scale 1-3) Last Admin: 10/29/22 13:12 Dose: 650 mg Albuterol Sulfate (Albuterol Sulfate (0.042%) 1.25 Mg/3 Ml Vial.Neb) 1.25 mg INHALE Q2H PRN PRN Reason: Wheezing Last Admin: 10/28/22 21:59 Dose: 1.25 mg Artificial Tears (Artificial Tears 15 Ml Drops) 1 drop EYE-BOTH BID COUNTS INCLUDE 234 BEDS AT THE [facility] Last Admin: 10/30/22 08:27 Dose: 1 drop Atorvastatin Calcium (Atorvastatin Calcium 10 Mg Tablet) 10 mg PO BEDTIME COUNTS INCLUDE 234 BEDS AT THE [facility] Last Admin: 10/29/22 20:31 Dose: 10 mg Bisacodyl (Bisacodyl 10 Mg Supp.Rect) 10 mg WV DAILY PRN PRN Reason: Constipation Dextrose (Dextrose 50 % 25 Gm/50 Ml Syringe) 25 gm IVPUSH Q15M PRN; Protocol PRN Reason: per Hypoglycemia Standing Ord. Docusate Sodium (Docusate Sodium 100 Mg Capsule) 100 mg PO DAILY PRN PRN Reason: Constipation Glucose (Glucose Gel 15 Gm Gel..Gram.) 15 gm PO Q15M PRN; Protocol PRN Reason: per Hypoglycemia Standing Ord. Meropenem 500 mg/ Sodium (Chloride) 50 mls @ 100 mls/hr IV Q12H COUNTS INCLUDE 234 BEDS AT THE [facility] Last Infusion: 10/30/22 09:15 Dose: Infused Albumin Human (Kedbumin 25 %) 100 mls @ 100 mls/hr IV Q6H ALAN Stop: 10/31/22 09:14 Last Admin: 10/30/22 15:13 Dose: 100 mls/hr Insulin Human Lispro (Insulin Lispro 100 Unit/Ml 3 Ml Vial) 0 unit SUBCUT QIDACHS COUNTS INCLUDE 234 BEDS AT THE [facility]; Protocol Last Admin: 10/30/22 12:33 Dose: 2 unit Latanoprost (Latanoprost 0.005 % Ophth Mona 2.5 Ml Drops) 1 drop EYE-BOTH BEDTIME COUNTS INCLUDE 234 BEDS AT THE [facility] Last Admin: 10/29/22 20:37 Dose: Not Given Levalbuterol HCl (Levalbuterol Hcl 1.25 Mg/3 Ml Vial.Neb) 1.25 mg INHALE RQID COUNTS INCLUDE 234 BEDS AT THE [facility] Last Admin: 10/30/22 11:30 Dose: 1.25 mg Levothyroxine Sodium (Levothyroxine Sodium 175 Mcg Tablet) 175 mcg PO DAILY@0600 COUNTS INCLUDE 234 BEDS AT THE [facility] Last Admin: 10/30/22 06:20 Dose: 175 mcg Lorazepam (Lorazepam 0.5 Mg Tablet) 0.5 mg PO BID PRN PRN Reason: Anxiety Last Admin: 10/28/22 18:14 Dose: 0.5 mg Magnesium Oxide (Magnesium Oxide 400 Mg Tablet) 200 mg PO DAILY COUNTS INCLUDE 234 BEDS AT THE [facility] Last Admin: 10/30/22 08:21 Dose: 200 mg Melatonin (Melatonin 3 Mg Tablet) 6 mg PO BEDTIME COUNTS INCLUDE 234 BEDS AT THE [facility] Last Admin: 10/29/22 20:38 Dose: Not Given Pt Own ([Calquence ( Acalabrutinib Mal)] 100 Mg Tab 100 mg PO BID COUNTS INCLUDE 234 BEDS AT THE [facility] Last Admin: 10/30/22 10:54 Dose: 100 mg Non-Formulary Medication (Brinzolamide-Brimonidine [Simbrinza]) 1 drop EYE-RIGHT BID COUNTS INCLUDE 234 BEDS AT THE [facility] Nystatin (Nystatin Powder 15 Gm Bottle) 1 appl TOPICAL BID COUNTS INCLUDE 234 BEDS AT THE [facility]; Protocol Last Admin: 10/30/22 12:34 Dose: 1 appl Ondansetron HCl (Ondansetron Hcl 4 Mg/2 Ml Vial) 4 mg IVPUSH Q8H PRN PRN Reason: Nausea and Vomiting Pharmacy Consult (Consult Rx Perform Med Rec) 1 each MISCELLANE ONCE PRN PRN Reason: Consult order Polyethylene Glycol (Polyethylene Glycol 3350 17 Gm Powd.Pack) 17 gm PO BID COUNTS INCLUDE 234 BEDS AT THE [facility] Last Admin: 10/30/22 08:28 Dose: Not Given Prednisolone Acetate (Prednisolone Acetate 1 % Oph Susp 5 Ml Drpbtl) 1 drop EYE-RIGHT DAILY COUNTS INCLUDE 234 BEDS AT THE [facility] Last Admin: 10/30/22 08:27 Dose: 1 drop Prednisone (Prednisone 1 Mg Tablet) 6 mg PO DAILY COUNTS INCLUDE 234 BEDS AT THE [facility] Last Admin: 10/30/22 08:19 Dose: 6 mg Senna (Sennosides 8.6 Mg Tablet) 17.2 mg PO DAILY PRN PRN Reason: Constipation Sodium Chloride (0.9 % Sodium Chloride Flush 3 Ml Syringe) 3 ml IVFLUSH QSHIFT COUNTS INCLUDE 234 BEDS AT THE [facility] Last Admin: 10/30/22 15:48 Dose: 3 ml Timolol Maleate (Timolol Maleate 0.5 % Oph Mona 5 Ml Drbtl) 1 drop EYE-RIGHT BID COUNTS INCLUDE 234 BEDS AT THE [facility] Last Admin: 10/30/22 08:27 Dose: 1 drop Home Medications Medication Instructions Recorded Confirmed Last Taken Type chlordiazepoxide HCl 10 mg capsule 10 mg PO BEDTIME 10/08/21 10/27/22 Unknown History citalopram 20 mg tablet 40 mg PO DAILY 10/08/21 10/27/22 Unknown History insulin lispro protamine-lispro 0 unit subcut QIDACHS 10/08/21 10/27/22 Unknown History 100 unit/mL (75-25) subcutaneous pen levothyroxine 175 mcg tablet 175 mcg PO DAILY@0600 10/08/21 10/27/22 Unknown History simvastatin 20 mg tablet 20 mg PO BEDTIME 10/08/21 10/27/22 Unknown History sitagliptin phosphate 100 mg 100 mg PO DAILY 10/08/21 10/27/22 Unknown History tablet (Januvia) latanoprost 0.005 % eye drops 1 drp ophthalmic (eye) BEDTIME 11/20/21 10/27/22 Unknown History albuterol sulfate 0.63 mg/3 mL 0.63 mg inhalation Q2H PRN Wheezing 02/16/22 10/27/22 Unknown History solution for nebulization brinzolamide 1 %-brimonidine 0.2 % 1 drp ophthalmic-Right BID 02/16/22 10/27/22 Unknown History eye drops,suspension (Simbrinza) nhipbrwmyp-dsrztyxbxycdy-qccormpy 1 tab PO Q6H PRN Headache 02/16/22 10/27/22 Unknown History 50 mg-325 mg-40 mg tablet coenzyme Q10 100 mg capsule 150 mg PO DAILY 02/16/22 10/27/22 Unknown History (CoQ-10) insulin glargine 100 unit/mL (3 16 unit subcut BID 02/16/22 10/27/22 Unknown History mL) subcutaneous pen (Lantus Solostar U-100 Insulin) melatonin 5 mg tablet 5 mg PO BEDTIME 02/16/22 10/27/22 Unknown History metoprolol tartrate 50 mg tablet 50 mg PO BID 02/16/22 10/27/22 Unknown History prednisolone acetate 1 % eye 1 drp ophthalmic-Right DAILY 02/16/22 10/27/22 Unknown History drops,suspension sennosides 8.6 mg tablet (senna) 17.2 mg PO DAILY PRN Constipation 02/16/22 10/27/22 Unknown History timolol maleate 0.5 % eye drops 1 drp ophthalmic-Right BID 02/16/22 10/27/22 Unknown History carboxymethylcellulose sodium 1 % 1 drp ophthalmic (eye) BID 03/15/22 10/27/22 Unknown History eye drops (Artificial Tears (carboxymethylcellulose)) budesonide-formoterol HFA 160 2 puff inhalation BID 04/27/22 10/27/22 Unknown History mcg-4.5 mcg/actuation aerosol inhaler (Symbicort) umeclidinium 62.5 mcg/actuation 1 inh inhalation DAILY 04/27/22 10/27/22 Unknown History blister powder for inhalation (Incruse Ellipta) acetaminophen 325 mg tablet 650 mg PO Q4H PRN Pain (Scale 06/08/22 10/27/22 Unknown History (Tylenol) Score 4-6) amlodipine 10 mg tablet 10 mg PO DAILY high blood pressure 06/08/22 10/27/22 Unknown History guaifenesin 600 mg tablet, 600 mg PO BID cough 06/08/22 10/27/22 Unknown History extended release 12 hr polyethylene glycol 3350 17 17 g PO BID 06/08/22 10/27/22 Unknown History gram/dose oral powder (Miralax) sodium phosphates 19 gram-7 118 ml WV BEDTIME PRN Constipation 06/08/22 10/27/22 Unknown History gram/118 mL enema (Fleet Enema) levalbuterol HCl 1.25 mg/3 mL 1.25 mg inhalation QID 07/30/22 10/27/22 Unknown History solution for nebulization biotin 5 mg tablet 5 mg PO DAILY 08/11/22 10/27/22 Unknown History bisacodyl 10 mg rectal suppository 10 mg WV DAILY PRN Constipation 08/11/22 10/27/22 Unknown History guaifenesin 100 mg/5 mL oral liquid 200 mg PO Q4H PRN Pain (Scale 08/11/22 10/27/22 Unknown History Score 1-3) hydroxychloroquine 200 mg tablet 200 mg PO BID 08/11/22 10/27/22 Unknown History hydroxyzine HCl 25 mg tablet 25 mg PO DAILY 08/11/22 10/27/22 Unknown History lorazepam 0.5 mg tablet 0.5 mg PO BID PRN Anxiety 08/11/22 10/27/22 Unknown History magnesium 200 mg tablet 400 mg PO DAILY 08/11/22 10/27/22 Unknown History riboflavin (vitamin B2) 400 mg 400 mg PO DAILY 08/11/22 10/27/22 Unknown History tablet diphenhydramine-zinc acetate 2 1 appl topical BID 10/27/22 10/27/22 Unknown History %-0.1 % topical cream nystatin 100,000 unit/gram topical 1 appl topical BID 10/27/22 10/27/22 Unknown History powder prednisone 1 mg tablet 6 mg PO DAILY 10/27/22 10/27/22 Unknown History sennosides 8.6 mg-docusate sodium 1 tab-cap PO DAILY 10/27/22 10/27/22 Unknown History 50 mg tablet (Senna-S) Physical Exam Vital Signs: Vital Signs: Last Vital Signs Temp 97.0 F 10/30/22 12:00 Pulse 41 L 10/30/22 12:00 Resp 20 10/30/22 12:00 BP 104/51 L 10/30/22 12:00 Pulse Ox 95 10/30/22 12:00 O2 Del Method Room Air 10/30/22 12:00 O2 Flow Rate 3 10/30/22 07:38 Oxygen Flow Rate 4 10/27/22 20:01 BMI result Body Mass Index 47.7 Const: General: cooperative, healthy appearing, comfortable and no acute distress Orientation/consciousness: patient oriented x3 HEENT: Face and sinus: Yes normal facial exam Mouth: moist mucous membranes Neck: Neck: Yes normal visual inspection, Yes full ROM and Yes trachea midline Chest: Chest palpation & inspection: normal inspection of the chest Resp: Effort & Inspection: normal respiratory effort, able to speak in complete sentences and no respiratory distress GI: Inspection: Yes normal to inspection Back/Spine/Pelvis: Cervical Spine: normal cervical lordosis Thoracic/Lumbar Spine: thoracic and lumbar spine normal to inspection Skin: General skin exam: no rashes or lesions noted Neuro: General: patient oriented x3, tone normal and moves all extremities Extrem: General: Yes normal to inspection and Yes capillary refill normal Results Labs 10/29/22 08:30 10/30/22 06:28 Labs: Abnormal lab results 10/29/22 10/29/22 10/30/22 Range/Units 16:31 19:55 06:28 Carbon Dioxide 20 L (22-29) mmol/L BUN 97 H (9-16) mg/dL Creatinine 4.30 H* (0.5-1.4) mg/dL POC Glucose 148 H 134 H (60-115) mg/dL 10/30/22 Range/Units 11:35 Carbon Dioxide (22-29) mmol/L BUN (9-16) mg/dL Creatinine (0.5-1.4) mg/dL POC Glucose 159 H (60-115) mg/dL BMP 10/30/22 06:28 Sodium 135 Potassium 4.6 D Chloride 100 Carbon Dioxide 20 L BUN 97 H Creatinine 4.30 H* Calcium 8.6 D Urine 10/28/22 Range/Units 07:38 Urine Color Yellow Urine Appearance Turbid Urine pH 5.5 (5.0-9.0) Ur Specific Winn 1.015 (1.005-1.025) Urine Protein Trace (Neg-Trace) mg/dL Urine Glucose (UA) Negative (Negative) mg/dL All other labs normal. Assessment and Plan (1) CKD (chronic kidney disease) stage 3, GFR 30-59 ml/min: Status: Acute (2) LEO (acute kidney injury): Status: Acute (3) Pyelonephritis: Status: Acute Plan Medical therapy STent if no improvement in 36-48 hrs Time Spent With Patient Time: Total time managing care of this patient today ____ minutes. Procedures Date of Service Date of Service: 10/30/22
[2022-10-30 16:59] LABS: Glucose, Whole Blood 214 mg/dL (60-115)
[2022-10-30] MEDS: DOPamine HCL/D5W 400 MG/250 ML PLAST..BAG 25.13 MG IVCONT (17:13)
[2022-10-30] MEDS: ondansetron HCL 4 MG/2 ML VIAL IVPUSH (17:35)
[2022-10-30] MEDS: Norepinephrine Bitartrate/D5W 8 MG/250 ML PLAST..BAG 12.56 MG IV (18:30)
[2022-10-30 18:38] LABS: ABG Base Excess -2.6 mmol/L; ABG HCO3 23 mmol/L (22-26); ABG pCO2 44 mmHg (32-45); ABG pH 7.32 (7.35-7.45); ABG pO2 61 mmHg (83-108)
[2022-10-30 18:58] LABS: Anion Gap 25 (12-20); Blood Urea Nitrogen 102 mg/dL (9-16); Calcium 8.4 mg/dL (8.4-10.2); Carbon Dioxide 17 mmol/L (22-29); Chloride 98 mmol/L (96-108); Creatinine Clr Calc Pharmacy 16.1; Estimated Glomerular Filt Rate 10; Glucose Random 296 mg/dL (60-115); Phosphorus 7.5 mg/dL (2.7-4.5); Potassium 5.3 mmol/L (3.3-5.1); Sodium 135 mmol/L (135-145)
--- NOTE | 2022-10-30 19:15 | PC.NURSE ---
Assumed care of patient 15:15 Pt transported from [facility] to ICU. Patient A+Ox4 HR 43 sinus viktoria with 1st degree AV block, BP 108/33. MD notified urimeter bag attached to gibson catheter. Urine output 15 ml total 15:15-18:00, MD aware Dopamine gtt started for low HR, low BP. Gtt titrated per protocol to 20 mcg/kg/min. HR increased to 89. Pt states nausea, denies dizziness notified of low MAPs 18:14, Levophed gtt started for low MAP. Titrated up to 0.12 mcg/kg/min per protocol. ABGs ordered and collected by RT. notified of ABG results. Pt had increased oxygen needs, SaO2 83% on 4L NC. Patient changed to 2L oxymask for goal SaO2 88-92% Nurse to nurse report given 19:00
[2022-10-30] MEDS: DOPamine HCL/D5W 400 MG/250 ML PLAST..BAG 100.5 MG IVCONT ×3 (19:39→23:37)
--- NOTE | 2022-10-30 21:34 | W.PM.CCHP ---
Procedures Date of Service Date of Service: 10/30/22 Central Line Placement Right IJ: Consent for Procedure: Elective - informed consent obtained Time out performed: Yes Sterile Technique Used: Yes Patient placed on monitor/pulse ox: Yes MD prep: mask, gown and gloves Central line prep: Chlorhexidine scrub Local anesthesia used: lidocaine 1% Amount of anesthesia used (ml): 5 Ultrasound used for placement: Yes Central line lumen inserted: triple (hemo dialysis cath with 3 lummens ) Post procedure: sutured in place Post procedure x-ray: tip of catheter in good position Patient tolerated procedure: well Complications: none
[2022-10-30] MEDS: Norepinephrine Bitartrate/D5W 8 MG/250 ML PLAST..BAG 47.74 MG IV (22:03)
[2022-10-30 22:05] LABS: Glucose, Whole Blood 335 mg/dL (60-115)
[2022-10-30] MEDS: Albumin Human 25 % 50 ML 100 ML IV (22:13)
[2022-10-30] MEDS: Atorvastatin Calcium 10 MG TABLET PO (22:35)
[2022-10-30] MEDS: Melatonin 3 MG TABLET 6 MG PO (22:38)
[2022-10-30 22:42] LABS: ABG Refer to POC result
[2022-10-31] VITALS (56 sets, daily range): BP systolic 74–157; BP diastolic 38–119; PULSE 57–88; RESP 12–26; TEMP 36.2–37.2; O2SAT 85–99
[2022-10-31] MEDS: DOPamine HCL/D5W 400 MG/250 ML PLAST..BAG 100.5 MG IVCONT ×2 (01:48→04:13)
[2022-10-31] MEDS: Bumetanide 1 MG/4 ML VIAL IVPUSH (01:49)
[2022-10-31] MEDS: Albumin Human 25 % 100 ML IV ×2 (01:50→07:53)
[2022-10-31 01:56] LABS: VBG Base Excess 0.1 mmol/L; VBG HCO3 26 mmol/L (22-26); VBG pCO2 47 mmHg; VBG pH 7.34 (7.32-7.43); VBG pO2 51 mmHg
[2022-10-31 01:58] LABS: Magnesium 2.4 mg/dL (1.6-2.6)
[2022-10-31 02:01] LABS: Phosphorus 4.2 mg/dL (2.7-4.5)
[2022-10-31 02:04] LABS: Alanine Aminotransferase 27 U/L (0-31); Alkaline Phosphatase 108 U/L (39-117); Anion Gap 20 (12-20); Aspartate Amino Transferase 26 U/L (5-31); Bilirubin Total 0.3 mg/dL (0.0-1.0); Blood Urea Nitrogen 49 mg/dL (9-16); Calcium 8.7 mg/dL (8.4-10.2); Carbon Dioxide 22 mmol/L (22-29); Chloride 97 mmol/L (96-108); Estimated Glomerular Filt Rate 18; Glucose Random 266 mg/dL (60-115); Magnesium 2.1 mg/dL (1.6-2.6); Potassium 3.2 mmol/L (3.3-5.1); Sodium 136 mmol/L (135-145); Total Protein 6.9 g/dL (6.5-8.0)
[2022-10-31 02:05] LABS: Venous Blood Gas Refer to POC result
[2022-10-31 02:10] LABS: B Type Natriuretic Peptide 1198 pg/mL (<100)
[2022-10-31] MEDS: levalbuterol HCL 1.25 MG/3 ML VIAL.NEB INHALE ×5 (02:19→19:45)
[2022-10-31] MEDS: Norepinephrine Bitartrate/D5W 8 MG/250 ML PLAST..BAG 32.66 MG IV (02:55)
[2022-10-31 05:03] LABS: VBG Base Excess -0.1 mmol/L; VBG HCO3 25 mmol/L (22-26); VBG pCO2 45 mmHg; VBG pH 7.35 (7.32-7.43); VBG pO2 43 mmHg
[2022-10-31 05:51] LABS: Venous Blood Gas Refer to POC result
[2022-10-31 07:02] LABS: Eosinophils Absolute Auto 0.1 X10*3/uL (0.0-0.4); Lymphocytes Percent Auto 4.4 % (20-40); Mean Corpuscular Hemoglobin 24.6 pg (27.0-33.0); Neutrophils Percent Auto 84.5 % (45-73); PLT CLUMP 1; Red Cell Distribution Width 15.2 % (11.0-16.0); SCAN SMEAR FLAG 1
[2022-10-31 07:05] LABS: Basophils Absolute Auto 0.1 X10*3/uL (0.0-0.2); Basophils Percent Auto 0.4 % (0-2); Eosinophils Percent Auto 0.5 % (0-4); Hemoglobin 7.3 g/dl (12.0-16.0); Imm Gran Abs Auto 0.16 X10*3/uL (0.00-0.03); Lymphocytes Absolute Auto 0.7 X10*3/uL (1.2-4.9); MANUAL DIFF FLAG SCAN; Mean Corpuscular HGB Conc 29.2 g/dl (31.0-35.0); Mean Corpuscular Volume 84.2 fL (80.0-98.0); Monocytes Absolute Auto 1.5 X10*3/uL (0.1-1.2); Monocytes Percent Auto 9.2 % (2-11); Neutrophils Absolute Auto 13.3 x10*3/uL (2.0-8.3); Red Blood Count 2.97 X10*6/uL (4.20-5.50)
[2022-10-31 07:19] LABS: PLT ABN DIST 1
[2022-10-31 07:26] LABS: Platelet Count 239 X10*3/uL (160-400); SLIDE REVIEW VERIFIED; White Blood Count 15.8 X10*3/uL (4.8-10.8)
[2022-10-31 07:30] LABS: Albumin Level 4.1 g/dL (3.5-5.0); Anion Gap 21 (12-20); Blood Urea Nitrogen 52 mg/dL (9-16); Calcium 8.6 mg/dL (8.4-10.2); Carbon Dioxide 20 mmol/L (22-29); Chloride 95 mmol/L (96-108); Creatinine Clr Calc Pharmacy 23.9; Estimated Glomerular Filt Rate 15; Glucose Random 308 mg/dL (60-115); Magnesium 2.2 mg/dL (1.6-2.6); Phosphorus 4.6 mg/dL (2.7-4.5); Potassium 3.3 mmol/L (3.3-5.1); Sodium 133 mmol/L (135-145)
[2022-10-31 07:36] LABS: Glucose, Whole Blood 290 mg/dL (60-115)
[2022-10-31] MEDS: Insulin Lispro 100 UNIT/ML 3 ML VIAL SUBCUT ×3 (07:53→16:44)
[2022-10-31] MEDS: 0.9 % Sodium Chloride Flush 3 ML SYRINGE IVFLUSH ×2 (07:54→16:44)
[2022-10-31] MEDS: DOPamine HCL/D5W 400 MG/250 ML PLAST..BAG 50.25 MG IVCONT ×4 (08:06→22:26)
--- NOTE | 2022-10-31 09:19 | P.PNCC_ITS ---
Subjective Subjective Date of Service: 10/31/22 Interval History: 72-year-old lady with underlying history of CLL, CKD, diastolic heart failure, hypertension, PVD, morbid obesity, LATONYA, COPD, diabetes mellitus, prior ESBL infections admitted on 10/28/2022 with dyspnea, worsening lower extremity edema, orthopnea. On ER evaluation patient with acute on chronic renal failure, hyperkalemia, and sinus bradycardia, initially admitted to the telemetry [place]. Hospital course significant for gram-negative UTI, initial improvement in hyperkalemia later with recurrence, progressive hypoxemia secondary to volume retention, and also persistent bradycardia requiring transfer to intensive care unit and initiation of chronotropic support or with pressors. Secondary to recurring hyperkalemia patient initiated on dialysis support. Critical Care Time (minutes): 60 Physical Exam Vital Signs: Vital Signs: Last Vital Signs Temp 97.3 F 10/31/22 08:00 Pulse 67 10/31/22 09:00 Resp 19 10/31/22 09:00 BP 137/48 L 10/31/22 09:00 Pulse Ox 91 L 10/31/22 09:00 O2 Del Method CPAP 10/31/22 09:00 O2 Flow Rate 7 10/31/22 02:00 FiO2 35 10/31/22 09:00 Oxygen Flow Rate 4 10/27/22 20:01 BMI result Body Mass Index 47.7 Const: General: no acute distress and lethargic (Arousable to voice) Nutritional Appearance: obese and Edematous Orientation/consciousness: lethargic (Arousable to voice) Eyes: Sclerae: sclerae normal EOM: EOMs intact bilaterally Neck: Neck: Yes no lymphadenopathy, Yes trachea midline and Yes supple Resp: Effort & Inspection: normal respiratory effort and no respiratory distress Auscultation: crackles (Diffuse bilateral) Cardio: Rate: regular rate Rhythm: regular rhythm Heart sounds: no gallops, no murmurs and no rubs GI: Palpation (GI): Soft to palpation and Other GI palpation findings present ( Nontender) Auscultation: normal bowel sounds Extrem: General: No clubbing, No cyanosis and Yes edema (2+ bilateral) Objective Data Labs 10/31/22 04:53 10/31/22 04:53 Labs: Laboratory Results - last 24 hr 10/30/22 10/30/22 10/30/22 11:35 16:57 18:18 WBC RBC Hgb Hct MCV MCH MCHC RDW Plt Count MPV Immature Gran % (Auto) Neut % (Auto) Lymph % (Auto) [place] % (Auto) Eos % (Auto) Baso % (Auto) Lymph # (Auto) [place] # (Auto) Eos # (Auto) Baso # (Auto) Abs Immat Gran (auto) Absolute Neuts (auto) Absolute Nucleated RBC Nucleated RBC % (auto) Smear Tech's Comments O2 Saturation ABG pH at Pt Temp ABG pCO2 at Pt Temp ABG pO2 at Pt Temp ABG HCO3 ABG Base Excess (Actual) VBG pH VBG pCO2 VBG pO2 VBG HCO3 VBG O2 Saturation VBG Base Excess Sodium 135 Potassium 5.3 H Chloride 98 Carbon Dioxide 17 L Anion Gap 25 H BUN 102 H Creatinine 4.51 H* Estim Creat Clear Calc 16.1 Estimated GFR 10 POC Glucose 159 H 214 H Random Glucose 296 H Calcium 8.4 Phosphorus 7.5 H Magnesium 2.4 Total Bilirubin AST ALT Alkaline Phosphatase B-Natriuretic Peptide Total Protein Albumin 10/30/22 10/30/22 10/31/22 18:27 22:00 01:41 WBC RBC Hgb Hct MCV MCH MCHC RDW Plt Count MPV Immature Gran % (Auto) Neut % (Auto) Lymph % (Auto) [place] % (Auto) Eos % (Auto) Baso % (Auto) Lymph # (Auto) [place] # (Auto) Eos # (Auto) Baso # (Auto) Abs Immat Gran (auto) Absolute Neuts (auto) Absolute Nucleated RBC Nucleated RBC % (auto) Smear Tech's Comments O2 Saturation 86.0 ABG pH at Pt Temp 7.32 L ABG pCO2 at Pt Temp 44 ABG pO2 at Pt Temp 61 L ABG HCO3 23 ABG Base Excess (Actual) -2.6 VBG pH VBG pCO2 VBG pO2 VBG HCO3 VBG O2 Saturation VBG Base Excess Sodium Potassium Chloride Carbon Dioxide Anion Gap BUN Creatinine Estim Creat Clear Calc Estimated GFR POC Glucose 335 H Random Glucose Calcium Phosphorus Magnesium Total Bilirubin AST ALT Alkaline Phosphatase B-Natriuretic Peptide 1198 H Total Protein Albumin 10/31/22 10/31/22 10/31/22 01:41 01:41 01:45 WBC RBC Hgb Hct MCV MCH MCHC RDW Plt Count MPV Immature Gran % (Auto) Neut % (Auto) Lymph % (Auto) [place] % (Auto) Eos % (Auto) Baso % (Auto) Lymph # (Auto) [place] # (Auto) Eos # (Auto) Baso # (Auto) Abs Immat Gran (auto) Absolute Neuts (auto) Absolute Nucleated RBC Nucleated RBC % (auto) Smear Tech's Comments O2 Saturation ABG pH at Pt Temp ABG pCO2 at Pt Temp ABG pO2 at Pt Temp ABG HCO3 ABG Base Excess (Actual) VBG pH 7.34 VBG pCO2 47 VBG pO2 51 VBG HCO3 26 VBG O2 Saturation 81.0 VBG Base Excess 0.1 Sodium 136 Potassium 3.2 L D Chloride 97 Carbon Dioxide 22 Anion Gap 20 BUN 49 H Creatinine 2.59 H Estim Creat Clear Calc 28.0 Estimated GFR 18 POC Glucose Random Glucose 266 H Calcium 8.7 Phosphorus 4.2 Magnesium 2.1 Total Bilirubin 0.3 AST 26 ALT 27 Alkaline Phosphatase 108 B-Natriuretic Peptide Total Protein 6.9 Albumin 4.0 10/31/22 10/31/22 10/31/22 04:52 04:53 04:53 WBC 15.8 H RBC 2.97 L Hgb 7.3 L Hct 25.0 L MCV 84.2 MCH 24.6 L MCHC 29.2 L RDW 15.2 Plt Count 239 MPV Not Reportable Immature Gran % (Auto) 1.0 H Neut % (Auto) 84.5 H Lymph % (Auto) 4.4 L [place] % (Auto) 9.2 Eos % (Auto) 0.5 Baso % (Auto) 0.4 Lymph # (Auto) 0.7 L [place] # (Auto) 1.5 H Eos # (Auto) 0.1 Baso # (Auto) 0.1 Abs Immat Gran (auto) 0.16 H Absolute Neuts (auto) 13.3 H Absolute Nucleated RBC 0.000 Nucleated RBC % (auto) 0.0 Smear Tech's Comments VERIFIED O2 Saturation ABG pH at Pt Temp ABG pCO2 at Pt Temp ABG pO2 at Pt Temp ABG HCO3 ABG Base Excess (Actual) VBG pH 7.35 VBG pCO2 45 VBG pO2 43 VBG HCO3 25 VBG O2 Saturation 71.0 VBG Base Excess -0.1 Sodium 133 L Potassium 3.3 Chloride 95 L Carbon Dioxide 20 L Anion Gap 21 H BUN 52 H Creatinine 3.04 H Estim Creat Clear Calc 23.9 Estimated GFR 15 POC Glucose Random Glucose 308 H Calcium 8.6 Phosphorus 4.6 H Magnesium 2.2 Total Bilirubin AST ALT Alkaline Phosphatase B-Natriuretic Peptide Total Protein Albumin 4.1 10/31/22 07:33 WBC RBC Hgb Hct MCV MCH MCHC RDW Plt Count MPV Immature Gran % (Auto) Neut % (Auto) Lymph % (Auto) [place] % (Auto) Eos % (Auto) Baso % (Auto) Lymph # (Auto) [place] # (Auto) Eos # (Auto) Baso # (Auto) Abs Immat Gran (auto) Absolute Neuts (auto) Absolute Nucleated RBC Nucleated RBC % (auto) Smear Tech's Comments O2 Saturation ABG pH at Pt Temp ABG pCO2 at Pt Temp ABG pO2 at Pt Temp ABG HCO3 ABG Base Excess (Actual) VBG pH VBG pCO2 VBG pO2 VBG HCO3 VBG O2 Saturation VBG Base Excess Sodium Potassium Chloride Carbon Dioxide Anion Gap BUN Creatinine Estim Creat Clear Calc Estimated GFR POC Glucose 290 H Random Glucose Calcium Phosphorus Magnesium Total Bilirubin AST ALT Alkaline Phosphatase B-Natriuretic Peptide Total Protein Albumin Microbiology Microbiology Results: Microbiology 10/28/22 Unknown Urine clean catch - Urine malik top Urine Culture - Preliminary Gram negative sancho Progress Note: A&P Assessment and plan (1) Pyelonephritis: Status: Acute (2) Bradycardia: Status: Acute (3) LEO (acute kidney injury): Status: Acute (4) (HFpEF) heart failure with preserved ejection fraction: Status: Acute (5) CLL (chronic lymphocytic leukemia): Status: Chronic (6) Morbid obesity: Status: Acute (7) Diabetes mellitus with insulin therapy: Status: Acute (8) LATONYA (obstructive sleep apnea): Status: Acute Plan Assessment: 72-year-old lady admitted with renal failure, bradycardia, hydronephrosis, and UTI Plan: Neuro: No acute issues. Cardiac: Bradycardia, appears to be secondary to lingering effect from beta-bl ocker on the background of acute renal failure. Continue to titrate of chronotropic support as tolerated. Underlying acute on chronic diastolic congestive heart failure secondary to volume retention, improving with dialysis/diuretic. Pulmonary: Acute on chronic hypoxic respiratory failure secondary to acute on chronic diastolic congestive heart failure, improving with volume remote. Underlying LATONYA, continue nocturnal CPAP. Renal: Acute renal failure, non oliguric. Now requiring dialysis support. Nephrology service care appreciated. Also, mild hydronephrosis, being evaluated by Urology service for possible stenting. Continue to monitor renal indices and urine output. Endo: No acute issues. Underlying diabetes mellitus. GI: No acute issues. ID: A UTI with Gram-negative sancho with prior history of ESBL infections. Now on empiric meropenem. Heme/Onc: No acute issues. Psych: No acute issues. Miscellaneous: No acute issues. Prophylaxis: Heparin Diet: Diabetic Critical care time spent: 60 minutes Quality Stroke Does the patient have a stroke diagnosis?: No VTE Prior VTE?: No VTE Risk Level:: Medical - moderate - high VTE Device Contraindication: Treatment Not Indicated VTE Drug Contraindication: N/A - Med Ordered
[2022-10-31] MEDS: Bumetanide 25 MG in Container,Empty 0 ML IVCONT (10:03)
[2022-10-31] MEDS: Nystatin Powder 15 GM BOTTLE 1 APPL TOPICAL ×2 (10:19→21:34)
[2022-10-31] MEDS: timoloL maleate 0.5 % Oph Sol 5 ML DRBTL 1 DROP EYE-RIGHT ×2 (10:20→21:35)
[2022-10-31] MEDS: Heparin Sodium,Porcine 5,000 UNIT/ML VIAL 5000 UNIT SUBCUT ×2 (10:20→18:21)
[2022-10-31] MEDS: prednisoLONE Acetate 1 % Oph Susp 5 ML DRPBTL 1 DROP EYE-RIGHT (10:20)
[2022-10-31] MEDS: Artificial Tears 15 ML DROPS 1 DROP EYE-BOTH ×2 (10:21→21:34)
--- NOTE | 2022-10-31 11:17 | PM.PNCARD ---
Subjective Subjective Date of Service: 10/31/22 Principal diagnosis: Acute kidney injury, bradycardia, decompensated heart failure. Interval history: Patient status post dialysis yesterday for high potassium. Blood pressure is improved but on 2 vasopressors, heart rate has improved as well in the 60s. Showing Mobitz type 1 second-degree AV block. Started putting out some more urine. Plan for IV Bumex drip today. He is currently using CPAP. Review of Systems Review of Systems Yes Unobtainable due to mental condition Physical Exam Vital Signs: Last Vital Signs Temp 97.3 F 10/31/22 08:00 Pulse 61 10/31/22 11:00 Resp 19 10/31/22 11:00 BP 118/49 L 10/31/22 11:00 Pulse Ox 88 L 10/31/22 11:00 O2 Del Method Nasal Cannula 10/31/22 11:00 O2 Flow Rate 4 10/31/22 11:00 FiO2 35 10/31/22 10:00 Oxygen Flow Rate 4 10/27/22 20:01 BMI result Body Mass Index 47.7 Const General: cooperative, alert, in distress mild and respiratory and lethargic Nutritional Appearance: obese morbidly obese Orientation/consciousness: lethargic Neck Neck: Yes trachea midline, Yes supple and Yes other (Cannot evaluate JVD) Resp Effort & Inspection: decreased respiratory effort Auscultation: diminished lung sounds Cardio Rate: bradycardic Rhythm: regular rhythm Heart sounds: S1 normal heart sound present, S2 normal heart sound present, no click, no gallops and Murmur heart sound present systolic early Skin General skin exam: no rashes or lesions noted and ecchymosis Neuro General: moves all extremities Extrem General: No clubbing, No cyanosis, Yes edema and Yes venous stasis dermatitis Objective Labs and Meds 10/31/22 04:53 10/31/22 04:53 Lab results: Laboratory Results - last 24 hr 10/30/22 10/30/22 10/30/22 11:35 16:57 18:18 WBC RBC Hgb Hct MCV MCH MCHC RDW Plt Count MPV Immature Gran % (Auto) Neut % (Auto) Lymph % (Auto) [place] % (Auto) Eos % (Auto) Baso % (Auto) Lymph # (Auto) [place] # (Auto) Eos # (Auto) Baso # (Auto) Abs Immat Gran (auto) Absolute Neuts (auto) Absolute Nucleated RBC Nucleated RBC % (auto) Smear Tech's Comments O2 Saturation ABG pH at Pt Temp ABG pCO2 at Pt Temp ABG pO2 at Pt Temp ABG HCO3 ABG Base Excess (Actual) VBG pH VBG pCO2 VBG pO2 VBG HCO3 VBG O2 Saturation VBG Base Excess Sodium 135 Potassium 5.3 H Chloride 98 Carbon Dioxide 17 L Anion Gap 25 H BUN 102 H Creatinine 4.51 H* Estim Creat Clear Calc 16.1 Estimated GFR 10 POC Glucose 159 H 214 H Random Glucose 296 H Calcium 8.4 Phosphorus 7.5 H Magnesium 2.4 Total Bilirubin AST ALT Alkaline Phosphatase B-Natriuretic Peptide Total Protein Albumin 10/30/22 10/30/22 10/31/22 18:27 22:00 01:41 WBC RBC Hgb Hct MCV MCH MCHC RDW Plt Count MPV Immature Gran % (Auto) Neut % (Auto) Lymph % (Auto) [place] % (Auto) Eos % (Auto) Baso % (Auto) Lymph # (Auto) [place] # (Auto) Eos # (Auto) Baso # (Auto) Abs Immat Gran (auto) Absolute Neuts (auto) Absolute Nucleated RBC Nucleated RBC % (auto) Smear Tech's Comments O2 Saturation 86.0 ABG pH at Pt Temp 7.32 L ABG pCO2 at Pt Temp 44 ABG pO2 at Pt Temp 61 L ABG HCO3 23 ABG Base Excess (Actual) -2.6 VBG pH VBG pCO2 VBG pO2 VBG HCO3 VBG O2 Saturation VBG Base Excess Sodium Potassium Chloride Carbon Dioxide Anion Gap BUN Creatinine Estim Creat Clear Calc Estimated GFR POC Glucose 335 H Random Glucose Calcium Phosphorus Magnesium Total Bilirubin AST ALT Alkaline Phosphatase B-Natriuretic Peptide 1198 H Total Protein Albumin 10/31/22 10/31/22 10/31/22 01:41 01:41 01:45 WBC RBC Hgb Hct MCV MCH MCHC RDW Plt Count MPV Immature Gran % (Auto) Neut % (Auto) Lymph % (Auto) [place] % (Auto) Eos % (Auto) Baso % (Auto) Lymph # (Auto) [place] # (Auto) Eos # (Auto) Baso # (Auto) Abs Immat Gran (auto) Absolute Neuts (auto) Absolute Nucleated RBC Nucleated RBC % (auto) Smear Tech's Comments O2 Saturation ABG pH at Pt Temp ABG pCO2 at Pt Temp ABG pO2 at Pt Temp ABG HCO3 ABG Base Excess (Actual) VBG pH 7.34 VBG pCO2 47 VBG pO2 51 VBG HCO3 26 VBG O2 Saturation 81.0 VBG Base Excess 0.1 Sodium 136 Potassium 3.2 L D Chloride 97 Carbon Dioxide 22 Anion Gap 20 BUN 49 H Creatinine 2.59 H Estim Creat Clear Calc 28.0 Estimated GFR 18 POC Glucose Random Glucose 266 H Calcium 8.7 Phosphorus 4.2 Magnesium 2.1 Total Bilirubin 0.3 AST 26 ALT 27 Alkaline Phosphatase 108 B-Natriuretic Peptide Total Protein 6.9 Albumin 4.0 10/31/22 10/31/22 10/31/22 04:52 04:53 04:53 WBC 15.8 H RBC 2.97 L Hgb 7.3 L Hct 25.0 L MCV 84.2 MCH 24.6 L MCHC 29.2 L RDW 15.2 Plt Count 239 MPV Not Reportable Immature Gran % (Auto) 1.0 H Neut % (Auto) 84.5 H Lymph % (Auto) 4.4 L [place] % (Auto) 9.2 Eos % (Auto) 0.5 Baso % (Auto) 0.4 Lymph # (Auto) 0.7 L [place] # (Auto) 1.5 H Eos # (Auto) 0.1 Baso # (Auto) 0.1 Abs Immat Gran (auto) 0.16 H Absolute Neuts (auto) 13.3 H Absolute Nucleated RBC 0.000 Nucleated RBC % (auto) 0.0 Smear Tech's Comments VERIFIED O2 Saturation ABG pH at Pt Temp ABG pCO2 at Pt Temp ABG pO2 at Pt Temp ABG HCO3 ABG Base Excess (Actual) VBG pH 7.35 VBG pCO2 45 VBG pO2 43 VBG HCO3 25 VBG O2 Saturation 71.0 VBG Base Excess -0.1 Sodium 133 L Potassium 3.3 Chloride 95 L Carbon Dioxide 20 L Anion Gap 21 H BUN 52 H Creatinine 3.04 H Estim Creat Clear Calc 23.9 Estimated GFR 15 POC Glucose Random Glucose 308 H Calcium 8.6 Phosphorus 4.6 H Magnesium 2.2 Total Bilirubin AST ALT Alkaline Phosphatase B-Natriuretic Peptide Total Protein Albumin 4.1 10/31/22 07:33 WBC RBC Hgb Hct MCV MCH MCHC RDW Plt Count MPV Immature Gran % (Auto) Neut % (Auto) Lymph % (Auto) [place] % (Auto) Eos % (Auto) Baso % (Auto) Lymph # (Auto) [place] # (Auto) Eos # (Auto) Baso # (Auto) Abs Immat Gran (auto) Absolute Neuts (auto) Absolute Nucleated RBC Nucleated RBC % (auto) Smear Tech's Comments O2 Saturation ABG pH at Pt Temp ABG pCO2 at Pt Temp ABG pO2 at Pt Temp ABG HCO3 ABG Base Excess (Actual) VBG pH VBG pCO2 VBG pO2 VBG HCO3 VBG O2 Saturation VBG Base Excess Sodium Potassium Chloride Carbon Dioxide Anion Gap BUN Creatinine Estim Creat Clear Calc Estimated GFR POC Glucose 290 H Random Glucose Calcium Phosphorus Magnesium Total Bilirubin AST ALT Alkaline Phosphatase B-Natriuretic Peptide Total Protein Albumin Imaging Radiologist's impression: Impressions Venous Duplex 10/30/22 13:30 IMPRESSION: No DVT demonstrated in the visualized right lower extremity, however the peroneal vein was not identified limiting evaluation. Chest X-Ray 10/30/22 21:35 IMPRESSION: Right IJ central line tip in the region of the upper SVC. Persistent dense retrocardiac opacity and diffuse interstitial prominence suggesting a degree of interstitial edema, similar to prior. Progress Note: A&P Assessment and plan (1) CHF exacerbation: Status: Acute Assessment and Plan: Patient requiring respiratory support. Fluid status difficult to determine. However based on poor diuretic response from many days and prior finding of IVC plethora still likely that she has decompensated congestive heart failure. Agree with IV diuresis with Bumex. If she does not respond adequately to IV diuresis consider renal replacement therapy/ultrafiltration. Continue supportive care. Agree with CPAP therapy given high likelihood of obesity hypoventilation and sleep apnea. Overall prognosis is guarded. Continue treat her underlying infectious source. (2) Sinus bradycardia: Status: Acute Assessment and Plan: Sinus bradycardia as 2 is to 1 av block with evidence of Mobitz type 1 second-degree AV block on telemetry monitoring today. Appears to be AV kelly level block. Heart rate is improved significantly. Continue positive chronotropic agent with IV dopamine. Metoprolol has been discontinued. Avoidance the rate lowering medication. If continues to become bradycardic, will need to discuss about pulmonary and pacing therapy in details. Will continue monitor for the next day or 2. Time Spent With Patient Time: Total time managing care of this patient today ____ minutes. Progress Note: Quality Stroke Does the patient have a stroke diagnosis?: No Procedures Date of Service Date of Service: 10/31/22
[2022-10-31 11:36] LABS: Glucose, Whole Blood 260 mg/dL (60-115)
--- NOTE | 2022-10-31 12:31 | PM.PNNEP ---
Subjective Subjective Date of Service: 10/31/22 Principal diagnosis: Acute kidney injury, bradycardia, decompensated heart failure. Interval history: Seen and examined, events noted Physical Exam Vital Signs: Vital Signs: Last Vital Signs Temp 97.1 F 10/31/22 12:00 Pulse 59 10/31/22 12:00 Resp 24 H 10/31/22 12:00 BP 95/43 L 10/31/22 12:00 Pulse Ox 85 L 10/31/22 12:00 O2 Del Method Oxymask 10/31/22 12:00 O2 Flow Rate 4 10/31/22 12:00 FiO2 35 10/31/22 10:00 Oxygen Flow Rate 4 10/27/22 20:01 BMI result Body Mass Index 47.7 Const: General: alert and awake HEENT: Head: Yes normocephalic and Yes atraumatic Neck: Neck: Yes supple Resp: Auscultation: diminished lung sounds Cardio: Rate: bradycardic Heart sounds: S1 normal heart sound present and S2 normal heart sound present GI: Palpation (GI): Soft to palpation and nontender Extrem: General: Yes pedal edema Objective Data Labs 10/31/22 04:53 10/31/22 04:53 Labs: Laboratory Results - last 24 hr 10/30/22 10/30/22 10/30/22 16:57 18:18 18:27 WBC RBC Hgb Hct MCV MCH MCHC RDW Plt Count MPV Immature Gran % (Auto) Neut % (Auto) Lymph % (Auto) [place] % (Auto) Eos % (Auto) Baso % (Auto) Lymph # (Auto) [place] # (Auto) Eos # (Auto) Baso # (Auto) Abs Immat Gran (auto) Absolute Neuts (auto) Absolute Nucleated RBC Nucleated RBC % (auto) Smear Tech's Comments O2 Saturation 86.0 ABG pH at Pt Temp 7.32 L ABG pCO2 at Pt Temp 44 ABG pO2 at Pt Temp 61 L ABG HCO3 23 ABG Base Excess (Actual) -2.6 VBG pH VBG pCO2 VBG pO2 VBG HCO3 VBG O2 Saturation VBG Base Excess Sodium 135 Potassium 5.3 H Chloride 98 Carbon Dioxide 17 L Anion Gap 25 H BUN 102 H Creatinine 4.51 H* Estim Creat Clear Calc 16.1 Estimated GFR 10 POC Glucose 214 H Random Glucose 296 H Calcium 8.4 Phosphorus 7.5 H Magnesium 2.4 Total Bilirubin AST ALT Alkaline Phosphatase B-Natriuretic Peptide Total Protein Albumin 10/30/22 10/31/22 10/31/22 22:00 01:41 01:41 WBC RBC Hgb Hct MCV MCH MCHC RDW Plt Count MPV Immature Gran % (Auto) Neut % (Auto) Lymph % (Auto) [place] % (Auto) Eos % (Auto) Baso % (Auto) Lymph # (Auto) [place] # (Auto) Eos # (Auto) Baso # (Auto) Abs Immat Gran (auto) Absolute Neuts (auto) Absolute Nucleated RBC Nucleated RBC % (auto) Smear Tech's Comments O2 Saturation ABG pH at Pt Temp ABG pCO2 at Pt Temp ABG pO2 at Pt Temp ABG HCO3 ABG Base Excess (Actual) VBG pH VBG pCO2 VBG pO2 VBG HCO3 VBG O2 Saturation VBG Base Excess Sodium Potassium Chloride Carbon Dioxide Anion Gap BUN Creatinine Estim Creat Clear Calc Estimated GFR POC Glucose 335 H Random Glucose Calcium Phosphorus 4.2 Magnesium Total Bilirubin AST ALT Alkaline Phosphatase B-Natriuretic Peptide 1198 H Total Protein Albumin 10/31/22 10/31/22 10/31/22 01:41 01:45 04:52 WBC RBC Hgb Hct MCV MCH MCHC RDW Plt Count MPV Immature Gran % (Auto) Neut % (Auto) Lymph % (Auto) [place] % (Auto) Eos % (Auto) Baso % (Auto) Lymph # (Auto) [place] # (Auto) Eos # (Auto) Baso # (Auto) Abs Immat Gran (auto) Absolute Neuts (auto) Absolute Nucleated RBC Nucleated RBC % (auto) Smear Tech's Comments O2 Saturation ABG pH at Pt Temp ABG pCO2 at Pt Temp ABG pO2 at Pt Temp ABG HCO3 ABG Base Excess (Actual) VBG pH 7.34 7.35 VBG pCO2 47 45 VBG pO2 51 43 VBG HCO3 26 25 VBG O2 Saturation 81.0 71.0 VBG Base Excess 0.1 -0.1 Sodium 136 Potassium 3.2 L D Chloride 97 Carbon Dioxide 22 Anion Gap 20 BUN 49 H Creatinine 2.59 H Estim Creat Clear Calc 28.0 Estimated GFR 18 POC Glucose Random Glucose 266 H Calcium 8.7 Phosphorus Magnesium 2.1 Total Bilirubin 0.3 AST 26 ALT 27 Alkaline Phosphatase 108 B-Natriuretic Peptide Total Protein 6.9 Albumin 4.0 10/31/22 10/31/22 10/31/22 04:53 04:53 07:33 WBC 15.8 H RBC 2.97 L Hgb 7.3 L Hct 25.0 L MCV 84.2 MCH 24.6 L MCHC 29.2 L RDW 15.2 Plt Count 239 MPV Not Reportable Immature Gran % (Auto) 1.0 H Neut % (Auto) 84.5 H Lymph % (Auto) 4.4 L [place] % (Auto) 9.2 Eos % (Auto) 0.5 Baso % (Auto) 0.4 Lymph # (Auto) 0.7 L [place] # (Auto) 1.5 H Eos # (Auto) 0.1 Baso # (Auto) 0.1 Abs Immat Gran (auto) 0.16 H Absolute Neuts (auto) 13.3 H Absolute Nucleated RBC 0.000 Nucleated RBC % (auto) 0.0 Smear Tech's Comments VERIFIED O2 Saturation ABG pH at Pt Temp ABG pCO2 at Pt Temp ABG pO2 at Pt Temp ABG HCO3 ABG Base Excess (Actual) VBG pH VBG pCO2 VBG pO2 VBG HCO3 VBG O2 Saturation VBG Base Excess Sodium 133 L Potassium 3.3 Chloride 95 L Carbon Dioxide 20 L Anion Gap 21 H BUN 52 H Creatinine 3.04 H Estim Creat Clear Calc 23.9 Estimated GFR 15 POC Glucose 290 H Random Glucose 308 H Calcium 8.6 Phosphorus 4.6 H Magnesium 2.2 Total Bilirubin AST ALT Alkaline Phosphatase B-Natriuretic Peptide Total Protein Albumin 4.1 10/31/22 11:32 WBC RBC Hgb Hct MCV MCH MCHC RDW Plt Count MPV Immature Gran % (Auto) Neut % (Auto) Lymph % (Auto) [place] % (Auto) Eos % (Auto) Baso % (Auto) Lymph # (Auto) [place] # (Auto) Eos # (Auto) Baso # (Auto) Abs Immat Gran (auto) Absolute Neuts (auto) Absolute Nucleated RBC Nucleated RBC % (auto) Smear Tech's Comments O2 Saturation ABG pH at Pt Temp ABG pCO2 at Pt Temp ABG pO2 at Pt Temp ABG HCO3 ABG Base Excess (Actual) VBG pH VBG pCO2 VBG pO2 VBG HCO3 VBG O2 Saturation VBG Base Excess Sodium Potassium Chloride Carbon Dioxide Anion Gap BUN Creatinine Estim Creat Clear Calc Estimated GFR POC Glucose 260 H Random Glucose Calcium Phosphorus Magnesium Total Bilirubin AST ALT Alkaline Phosphatase B-Natriuretic Peptide Total Protein Albumin Microbiology Microbiology Results: Microbiology 10/28/22 Unknown Urine clean catch - Urine malik top Urine Culture - Preliminary Gram negative sancho Procedures Date of Service Date of Service: 10/31/22 Assessment & Plan Assessment and plan (1) LEO (acute kidney injury): Status: Acute (2) Hyperkalemia: Status: Acute (3) (HFpEF) heart failure with preserved ejection fraction: Status: Acute (4) CKD (chronic kidney disease) stage 3, GFR 30-59 ml/min: Status: Acute Plan 1.Non-Oliguric LEO with workig Dx of CRSyn and now decompand Cardigenic Shock and xfer ICU emegent HD last nite w/u also revealed: Obs uropathy playing a role given abnl u/s and CT--UROL to see 2. dCHF: poorly responsive to current dose of diuretics REC: extra UF today; cont to optimize HDynamic--consider ERH-cath as may need inotropes; urol eval; check sero as oredered will follow nithya with team Time Spent With Patient Time: Total time managing care of this patient today ____ minutes. Progress Note: Quality Stroke Does the patient have a stroke diagnosis?: No
[2022-10-31 16:20] LABS: Glucose, Whole Blood 243 mg/dL (60-115)
[2022-10-31 21:13] LABS: Glucose, Whole Blood 189 mg/dL (60-115)
[2022-10-31] MEDS: Latanoprost 0.005 % Ophth Sol 2.5 ML DROPS 1 DROP EYE-BOTH (21:33)
[2022-11-01] VITALS (45 sets, daily range): BP systolic 99–162; BP diastolic 24–76; PULSE 61–94; RESP 11–29; TEMP 36.5–36.9; O2SAT 89–100; BMI 46.3
--- NOTE | 2022-11-01 | ECG_ITS ---
Test Reason : arrythmia Blood Pressure : / mmHG Vent. Rate : 093 BPM Atrial Rate : 000 BPM P-R Int : 000 ms QRS Dur : 106 ms QT Int : 410 ms P-R-T Axes : 000 121 010 degrees QTc Int : 509 ms Accelerated Junctional rhythm Left posterior fascicular block Cannot rule out Anterior infarct (cited on or before 28-OCT-2022) Abnormal ECG When compared with ECG of 28-OCT-2022 07:27, rhythm change Vent. rate has increased BY 54 BPM T wave amplitude has decreased in Anterolateral leads QT has lengthened Referred By: Luli Elizabeth Electronically Signed By:HEATH JEONG
[2022-11-01] MEDS: Heparin Sodium,Porcine 5,000 UNIT/ML VIAL 5000 UNIT SUBCUT ×3 (02:16→18:23)
[2022-11-01] MEDS: 0.9 % Sodium Chloride Flush 3 ML SYRINGE IVFLUSH ×4 (02:17→23:46)
[2022-11-01] MEDS: DOPamine HCL/D5W 400 MG/250 ML PLAST..BAG 50.25 MG IVCONT ×2 (03:04→08:41)
[2022-11-01 04:37] LABS: HBS Num1 0.62 mIU/mL (0-7.99); HBc Num1 0.05 S/CO (0.00-0.79); HBsAGNum1 0.42 S/CO (0.00-0.99); Hepatitis B Core Antibody Nonreactive (Nonreactive); Hepatitis B Surface Antigen Negative (Negative); ~HepC Num1 0.05 S/CO (0.00-0.79); ~Hepatitis B Surface Antibody NONREACTIVE (Nonreactive); ~Hepatitis C Antibody Nonreactive (Nonreactive)
[2022-11-01 05:11] LABS: VBG Base Excess 0.4 mmol/L; VBG HCO3 25 mmol/L (22-26); VBG pCO2 44 mmHg; VBG pH 7.37 (7.32-7.43); VBG pO2 30 mmHg
[2022-11-01 05:17] LABS: Venous Blood Gas Refer to POC result
[2022-11-01 05:17] LABS: MANUAL DIFF FLAG NO
[2022-11-01 05:20] LABS: Basophils Absolute Auto 0.1 X10*3/uL (0.0-0.2); Basophils Percent Auto 0.4 % (0-2); Eosinophils Absolute Auto 0.5 X10*3/uL (0.0-0.4); Eosinophils Percent Auto 3.4 % (0-4); Hematocrit 28.8 % (37.0-47.0); Hemoglobin 8.6 g/dl (12.0-16.0); Imm Gran Abs Auto 0.14 X10*3/uL (0.00-0.03); Lymphocytes Percent Auto 7.2 % (20-40); Mean Corpuscular HGB Conc 29.9 g/dl (31.0-35.0); Mean Corpuscular Hemoglobin 24.6 pg (27.0-33.0); Mean Corpuscular Volume 82.5 fL (80.0-98.0); Monocytes Absolute Auto 0.9 X10*3/uL (0.1-1.2); Monocytes Percent Auto 6.5 % (2-11); Neutrophils Absolute Auto 11.3 x10*3/uL (2.0-8.3); Neutrophils Percent Auto 81.5 % (45-73); Platelet Count 178 X10*3/uL (160-400); Red Blood Count 3.49 X10*6/uL (4.20-5.50); Red Cell Distribution Width 14.8 % (11.0-16.0); White Blood Count 13.9 X10*3/uL (4.8-10.8)
[2022-11-01 05:40] LABS: Albumin Level 3.6 g/dL (3.5-5.0); Anion Gap 21 (12-20); Blood Urea Nitrogen 54 mg/dL (9-16); Calcium 8.9 mg/dL (8.4-10.2); Carbon Dioxide 21 mmol/L (22-29); Chloride 98 mmol/L (96-108); Estimated Glomerular Filt Rate 15; Glucose Random 222 mg/dL (60-115); Magnesium 2.2 mg/dL (1.6-2.6); Phosphorus 4.2 mg/dL (2.7-4.5); Potassium 3.7 mmol/L (3.3-5.1); Sodium 136 mmol/L (135-145)
[2022-11-01 07:47] LABS: Glucose, Whole Blood 203 mg/dL (60-115)
[2022-11-01] MEDS: levalbuterol HCL 1.25 MG/3 ML VIAL.NEB INHALE ×4 (07:52→19:23)
--- NOTE | 2022-11-01 09:29 | P.PNCA_ITS ---
Subjective Subjective Date of Service: 11/01/22 Principal diagnosis: Acute kidney injury, bradycardia, decompensated heart failure. Interval history: Patient is on noninvasive ventilation. Not really answering much when I questioned her. Nursing staff at the bedside. Also discussed with electrolysis engineer. She is on dopamine drip. Review of Systems Review of Systems Unable to obtain review of systems as she is not able to get too much information. Physical Exam Vital Signs: Last Vital Signs Temp 98.0 F 11/01/22 08:00 Pulse 77 11/01/22 09:11 Resp 13 11/01/22 09:00 BP 162/52 H 11/01/22 09:11 Pulse Ox 98 11/01/22 09:00 O2 Del Method CPAP 11/01/22 09:00 O2 Flow Rate 4 10/31/22 12:00 FiO2 28 11/01/22 09:00 Oxygen Flow Rate 4 10/27/22 20:01 BMI result Body Mass Index 46.3 Const General: ill appearing, lethargic and tired appearing Orientation/consciousness: No patient oriented x3 and lethargic HEENT Other: Unremarkable Head: Yes normal to inspection Neck Neck: Yes normal visual inspection Chest Chest palpation & inspection: normal inspection of the chest Resp Auscultation: diminished lung sounds Cardio Palpation: normal PMI Heart sounds: S1 normal heart sound present, S2 normal heart sound present, no gallops, Murmur heart sound present systolic II/ and at the right sternal border and no rubs GI Palpation (GI): Soft to palpation Back/Spine/Pelvis Other: unremarkable Skin General skin exam: no rashes or lesions noted Neuro General: No patient oriented x3 Extrem General: Yes normal to inspection Psych Mental Status: mental status grossly abnormal Objective Labs and Meds 11/01/22 04:50 11/01/22 04:50 Lab results: Laboratory Results - last 24 hr 10/29/22 10/31/22 10/31/22 19:13 11:32 16:17 WBC RBC Hgb Hct MCV MCH MCHC RDW Plt Count MPV Immature Gran % (Auto) Neut % (Auto) Lymph % (Auto) [place] % (Auto) Eos % (Auto) Baso % (Auto) Lymph # (Auto) [place] # (Auto) Eos # (Auto) Baso # (Auto) Abs Immat Gran (auto) Absolute Neuts (auto) Absolute Nucleated RBC Nucleated RBC % (auto) VBG pH VBG pCO2 VBG pO2 VBG HCO3 VBG O2 Saturation VBG Base Excess Sodium Potassium Chloride Carbon Dioxide Anion Gap BUN Creatinine Estim Creat Clear Calc Estimated GFR POC Glucose 260 H 243 H Random Glucose Calcium Phosphorus Magnesium Albumin Hep Bs Antigen Negative Hep Bs Antibody NONREACTIVE Hep B Core Total Ab Nonreactive Hepatitis C Ab (EIA) Nonreactive 10/31/22 11/01/22 11/01/22 21:08 04:50 04:50 WBC 13.9 H RBC 3.49 L Hgb 8.6 L Hct 28.8 L MCV 82.5 MCH 24.6 L MCHC 29.9 L RDW 14.8 Plt Count 178 D MPV 12.0 Immature Gran % (Auto) 1.0 H Neut % (Auto) 81.5 H Lymph % (Auto) 7.2 L [place] % (Auto) 6.5 Eos % (Auto) 3.4 Baso % (Auto) 0.4 Lymph # (Auto) 1.0 L [place] # (Auto) 0.9 Eos # (Auto) 0.5 H Baso # (Auto) 0.1 Abs Immat Gran (auto) 0.14 H Absolute Neuts (auto) 11.3 H Absolute Nucleated RBC 0.000 Nucleated RBC % (auto) 0.0 VBG pH VBG pCO2 VBG pO2 VBG HCO3 VBG O2 Saturation VBG Base Excess Sodium 136 Potassium 3.7 Chloride 98 Carbon Dioxide 21 L Anion Gap 21 H BUN 54 H Creatinine 3.15 H Estim Creat Clear Calc 23.0 Estimated GFR 15 POC Glucose 189 H Random Glucose 222 H Calcium 8.9 Phosphorus 4.2 Magnesium 2.2 Albumin 3.6 Hep Bs Antigen Hep Bs Antibody Hep B Core Total Ab Hepatitis C Ab (EIA) 11/01/22 11/01/22 05:02 07:45 WBC RBC Hgb Hct MCV MCH MCHC RDW Plt Count MPV Immature Gran % (Auto) Neut % (Auto) Lymph % (Auto) [place] % (Auto) Eos % (Auto) Baso % (Auto) Lymph # (Auto) [place] # (Auto) Eos # (Auto) Baso # (Auto) Abs Immat Gran (auto) Absolute Neuts (auto) Absolute Nucleated RBC Nucleated RBC % (auto) VBG pH 7.37 VBG pCO2 44 VBG pO2 30 VBG HCO3 25 VBG O2 Saturation 48.0 VBG Base Excess 0.4 Sodium Potassium Chloride Carbon Dioxide Anion Gap BUN Creatinine Estim Creat Clear Calc Estimated GFR POC Glucose 203 H Random Glucose Calcium Phosphorus Magnesium Albumin Hep Bs Antigen Hep Bs Antibody Hep B Core Total Ab Hepatitis C Ab (EIA) Progress Note: A&P Assessment and plan (1) Bradycardia: Status: Acute (2) Heart block AV second degree: Status: Acute Plan Echocardiogram with LVEF of 60-65%. Severe mitral annular calcification. Possible aortic stenosis but very low gradient. Severe pulmonary hypertension. On telemetry, probable Mobitz type 1 second-degree heart block. Ventricular rate 70s to 80s. For medications, on dopamine drip. At this time, continue with dopamine drip and plan to wean as tolerated. Off all rate controlling medications. Otherwise, she has has multiple medical comorbidities and prognosis is guarded. Discussed with Dr. Tesfaye. Time Spent With Patient Time: Total time managing care of this patient today ____ minutes. Progress Note: Quality Stroke Does the patient have a stroke diagnosis?: No Procedures Date of Service Date of Service: 11/01/22
[2022-11-01] MEDS: Nystatin Powder 15 GM BOTTLE 1 APPL TOPICAL ×2 (09:53→20:16)
[2022-11-01] MEDS: prednisoLONE Acetate 1 % Oph Susp 5 ML DRPBTL 1 DROP EYE-RIGHT (10:12)
[2022-11-01] MEDS: Artificial Tears 15 ML DROPS 1 DROP EYE-BOTH ×2 (10:12→20:22)
[2022-11-01] MEDS: timoloL maleate 0.5 % Oph Sol 5 ML DRBTL 1 DROP EYE-RIGHT ×2 (10:12→20:21)
--- NOTE | 2022-11-01 11:34 | MHC.CLN ---
NUTRITION STARTED HEMODIALYSIS 10/31. DIET CHANGED PER DIALYSIS PARAMETERS: DM 1800 KCALS, 2 G SODIUM, LOW PHOSPHORUS, LOW POTASSIUM. SKIN WITH EXCORIATION TO COCCYX. FOLLOW WITH TEAM FOR INTAKE AND LABS.
[2022-11-01 11:46] LABS: Glucose, Whole Blood 266 mg/dL (60-115)
--- NOTE | 2022-11-01 11:48 | P.PNNP_ITS ---
Subjective Subjective Date of Service: 11/01/22 Principal diagnosis: Acute kidney injury, bradycardia, decompensated heart failure. Interval history: Seen and examined vented events noted Physical Exam Vital Signs: Vital Signs: Last Vital Signs Temp 98.0 F 11/01/22 08:00 Pulse 91 11/01/22 11:44 Resp 15 11/01/22 11:00 BP 136/62 11/01/22 11:44 Pulse Ox 97 11/01/22 11:00 O2 Del Method CPAP 11/01/22 11:00 O2 Flow Rate 4 10/31/22 12:00 FiO2 28 11/01/22 11:00 Oxygen Flow Rate 4 10/27/22 20:01 BMI result Body Mass Index 46.3 Const: General: alert and awake HEENT: Head: Yes normocephalic and Yes atraumatic Neck: Neck: Yes supple Resp: Auscultation: diminished lung sounds Cardio: Rate: bradycardic Heart sounds: S1 normal heart sound present and S2 normal heart sound present GI: Palpation (GI): Soft to palpation and nontender Extrem: General: Yes pedal edema Objective Data Labs 11/01/22 04:50 11/01/22 04:50 Labs: Laboratory Results - last 24 hr 10/29/22 10/31/22 10/31/22 19:13 16:17 21:08 WBC RBC Hgb Hct MCV MCH MCHC RDW Plt Count MPV Immature Gran % (Auto) Neut % (Auto) Lymph % (Auto) [place] % (Auto) Eos % (Auto) Baso % (Auto) Lymph # (Auto) [place] # (Auto) Eos # (Auto) Baso # (Auto) Abs Immat Gran (auto) Absolute Neuts (auto) Absolute Nucleated RBC Nucleated RBC % (auto) VBG pH VBG pCO2 VBG pO2 VBG HCO3 VBG O2 Saturation VBG Base Excess Sodium Potassium Chloride Carbon Dioxide Anion Gap BUN Creatinine Estim Creat Clear Calc Estimated GFR POC Glucose 243 H 189 H Random Glucose Calcium Phosphorus Magnesium Albumin Hep Bs Antigen Negative Hep Bs Antibody NONREACTIVE Hep B Core Total Ab Nonreactive Hepatitis C Ab (EIA) Nonreactive 11/01/22 11/01/22 11/01/22 04:50 04:50 05:02 WBC 13.9 H RBC 3.49 L Hgb 8.6 L Hct 28.8 L MCV 82.5 MCH 24.6 L MCHC 29.9 L RDW 14.8 Plt Count 178 D MPV 12.0 Immature Gran % (Auto) 1.0 H Neut % (Auto) 81.5 H Lymph % (Auto) 7.2 L [place] % (Auto) 6.5 Eos % (Auto) 3.4 Baso % (Auto) 0.4 Lymph # (Auto) 1.0 L [place] # (Auto) 0.9 Eos # (Auto) 0.5 H Baso # (Auto) 0.1 Abs Immat Gran (auto) 0.14 H Absolute Neuts (auto) 11.3 H Absolute Nucleated RBC 0.000 Nucleated RBC % (auto) 0.0 VBG pH 7.37 VBG pCO2 44 VBG pO2 30 VBG HCO3 25 VBG O2 Saturation 48.0 VBG Base Excess 0.4 Sodium 136 Potassium 3.7 Chloride 98 Carbon Dioxide 21 L Anion Gap 21 H BUN 54 H Creatinine 3.15 H Estim Creat Clear Calc 23.0 Estimated GFR 15 POC Glucose Random Glucose 222 H Calcium 8.9 Phosphorus 4.2 Magnesium 2.2 Albumin 3.6 Hep Bs Antigen Hep Bs Antibody Hep B Core Total Ab Hepatitis C Ab (EIA) 11/01/22 11/01/22 07:45 11:42 WBC RBC Hgb Hct MCV MCH MCHC RDW Plt Count MPV Immature Gran % (Auto) Neut % (Auto) Lymph % (Auto) [place] % (Auto) Eos % (Auto) Baso % (Auto) Lymph # (Auto) [place] # (Auto) Eos # (Auto) Baso # (Auto) Abs Immat Gran (auto) Absolute Neuts (auto) Absolute Nucleated RBC Nucleated RBC % (auto) VBG pH VBG pCO2 VBG pO2 VBG HCO3 VBG O2 Saturation VBG Base Excess Sodium Potassium Chloride Carbon Dioxide Anion Gap BUN Creatinine Estim Creat Clear Calc Estimated GFR POC Glucose 203 H 266 H Random Glucose Calcium Phosphorus Magnesium Albumin Hep Bs Antigen Hep Bs Antibody Hep B Core Total Ab Hepatitis C Ab (EIA) Microbiology Microbiology Results: Microbiology 10/31/22 09:09 Blood - Venous Blood Culture - Preliminary No growth after 24 hours. 10/31/22 09:13 Blood - Venous Blood Culture - Preliminary No growth after 24 hours. 10/28/22 Unknown Urine clean catch - Urine malik top Urine Culture - Final Escherichia coli Procedures Date of Service Date of Service: 11/01/22 Assessment & Plan Assessment and plan (1) LEO (acute kidney injury): Status: Acute (2) Hyperkalemia: Status: Acute (3) (HFpEF) heart failure with preserved ejection fraction: Status: Acute (4) CKD (chronic kidney disease) stage 3, GFR 30-59 ml/min: Status: Acute Plan s/p HD/UF multifactorial LEO: -congestive nephrosarca c/w cardio renal syndrome -acute tubular injury -obstructive uropathy hypotensive earlier CT scan showed mild left hydronephrosis per urology c/w ascending left pyelonephristis will stent if not improving known CKD baseline Scr ~ 1.2 mg/dl h/o HFpEF REC hold HD today urology following ABx monitor urine output follow kidney function and electrolytes Time Spent With Patient Time: Total time managing care of this patient today ____ minutes. Progress Note: Quality Stroke Does the patient have a stroke diagnosis?: No
--- NOTE | 2022-11-01 12:17 | MHC.CM.PN ---
Pt continues care in ICU: on NIPPV and is not able to communicate d/t increased respiratory effort. Pt had been at [facility] very recently (within the past month) and a referral has been made as it seems likely that pt will require STR placement again. CM to follow for changes in d/c plan.
[2022-11-01 15:18] LABS: Kappa Light Chain, Free Serum 87.5 mg/L (3.3-19.4); Kappa/Lambda Lt Ch Free Ratio 1.66 (0.26-1.65); Lambda Light Chain, Free Serum 52.7 mg/L (5.7-26.3)
[2022-11-01 16:04] LABS: Myeloperoxidase Antibody <1.0 AI; Proteinase 3 PR3 Antibodies <1.0 AI
--- NOTE | 2022-11-01 16:28 | P.PNCC_ITS ---
Subjective Subjective Date of Service: 11/01/22 Interval History: 72-year-old female with type 2 diabetes and background obstructive sleep apnea and history of diastolic CHF presented with Gram-negative sepsis stemming from urinary tract and appears to be E coli with an ESBL and sensitive to meropenem and along with this presented with acute on chronic renal failure that required a temporary dialysis catheter and dialysis treatments and now is non oliguric producing 50-60 cc/hour of urine and hopefully this will lead to resolution of her uremia and hyperkalemia that she presented with which I think was the reason for the symptomatic bradycardia and seizures thus far is continuing to tolerate the continuous BiPAP my bedside echo did indicate ejection fraction approximating 50% or 50-55 with borderline LVH and an EKG indicating Wenckebach periodicity in other words type Mobitz 1 second-degree heart block but on dopamine we still have blood pressure preservation as well as heart rate preservation and today we are weaning the dopamine and were currently down from 10 micrograms/kilogram to 5 micrograms/kilogram Critical Care Time (minutes): 45 Physical Exam Vital Signs: Vital Signs: Last Vital Signs Temp 97.7 F 11/01/22 16:26 Pulse 83 11/01/22 16:00 Resp 13 11/01/22 16:00 BP 125/47 L 11/01/22 16:00 Pulse Ox 93 11/01/22 16:00 O2 Del Method BiPAP 11/01/22 16:00 O2 Flow Rate 4 10/31/22 12:00 FiO2 28 11/01/22 16:00 Oxygen Flow Rate 4 10/27/22 20:01 BMI result Body Mass Index 46.3 arousable but lethargic tolerating BiPAP without respiratory effort bedside echo with preserved LV systolic function abdomen benign no organomegaly nontender skin intact without any breakdown or cellulitis no acrocyanosis chest clear without adventitious sounds Objective Data Labs 11/01/22 04:50 11/01/22 04:50 Labs: Laboratory Results - last 24 hr 10/29/22 10/29/22 10/29/22 19:13 19:13 19:13 WBC RBC Hgb Hct MCV MCH MCHC RDW Plt Count MPV Immature Gran % (Auto) Neut % (Auto) Lymph % (Auto) [place] % (Auto) Eos % (Auto) Baso % (Auto) Lymph # (Auto) [place] # (Auto) Eos # (Auto) Baso # (Auto) Abs Immat Gran (auto) Absolute Neuts (auto) Absolute Nucleated RBC Nucleated RBC % (auto) VBG pH VBG pCO2 VBG pO2 VBG HCO3 VBG O2 Saturation VBG Base Excess Sodium Potassium Chloride Carbon Dioxide Anion Gap BUN Creatinine Estim Creat Clear Calc Estimated GFR POC Glucose Random Glucose Calcium Phosphorus Magnesium Albumin Proteinase 3 (PR3) Ab <1.0 Myeloperoxidase Ab <1.0 Free [place] LC, Quant 87.5 H Free Lambda LC, Quant 52.7 H Free [place]/Lambda Ratio 1.66 H Hep Bs Antigen Negative Hep Bs Antibody NONREACTIVE Hep B Core Total Ab Nonreactive Hepatitis C Ab (EIA) Nonreactive 10/31/22 11/01/22 11/01/22 21:08 04:50 04:50 WBC 13.9 H RBC 3.49 L Hgb 8.6 L Hct 28.8 L MCV 82.5 MCH 24.6 L MCHC 29.9 L RDW 14.8 Plt Count 178 D MPV 12.0 Immature Gran % (Auto) 1.0 H Neut % (Auto) 81.5 H Lymph % (Auto) 7.2 L [place] % (Auto) 6.5 Eos % (Auto) 3.4 Baso % (Auto) 0.4 Lymph # (Auto) 1.0 L [place] # (Auto) 0.9 Eos # (Auto) 0.5 H Baso # (Auto) 0.1 Abs Immat Gran (auto) 0.14 H Absolute Neuts (auto) 11.3 H Absolute Nucleated RBC 0.000 Nucleated RBC % (auto) 0.0 VBG pH VBG pCO2 VBG pO2 VBG HCO3 VBG O2 Saturation VBG Base Excess Sodium 136 Potassium 3.7 Chloride 98 Carbon Dioxide 21 L Anion Gap 21 H BUN 54 H Creatinine 3.15 H Estim Creat Clear Calc 23.0 Estimated GFR 15 POC Glucose 189 H Random Glucose 222 H Calcium 8.9 Phosphorus 4.2 Magnesium 2.2 Albumin 3.6 Proteinase 3 (PR3) Ab Myeloperoxidase Ab Free [place] LC, Quant Free [place]ambda LC, Quant Free [place]/Lambda Ratio Hep Bs Antigen Hep Bs Antibody Hep B Core Total Ab Hepatitis C Ab (EIA) 11/01/22 11/01/22 11/01/22 05:02 07:45 11:42 WBC RBC Hgb Hct MCV MCH MCHC RDW Plt Count MPV Immature Gran % (Auto) Neut % (Auto) Lymph % (Auto) [place] % (Auto) Eos % (Auto) Baso % (Auto) Lymph # (Auto) [place] # (Auto) Eos # (Auto) Baso # (Auto) Abs Immat Gran (auto) Absolute Neuts (auto) Absolute Nucleated RBC Nucleated RBC % (auto) VBG pH 7.37 VBG pCO2 44 VBG pO2 30 VBG HCO3 25 VBG O2 Saturation 48.0 VBG Base Excess 0.4 Sodium Potassium Chloride Carbon Dioxide Anion Gap BUN Creatinine Estim Creat Clear Calc Estimated GFR POC Glucose 203 H 266 H Random Glucose Calcium Phosphorus Magnesium Albumin Proteinase 3 (PR3) Ab Myeloperoxidase Ab Free [place] LC, Quant Free [place]ambda LC, Quant Free [place]/Lambda Ratio Hep Bs Antigen Hep Bs Antibody Hep B Core Total Ab Hepatitis C Ab (EIA) Microbiology Microbiology Results: Microbiology 10/31/22 09:09 Blood - Venous Blood Culture - Preliminary No growth after 24 hours. 10/31/22 09:13 Blood - Venous Blood Culture - Preliminary No growth after 24 hours. 10/28/22 Unknown Urine clean catch - Urine malik top Urine Culture - Final Escherichia coli Progress Note: A&P Assessment and plan (1) Heart block AV second degree: Status: Acute (2) LATONYA (obstructive sleep apnea): Status: Acute (3) Diabetes mellitus with insulin therapy: Status: Acute (4) Pyelonephritis: Status: Acute (5) Bradycardia: Status: Acute (6) CKD (chronic kidney disease) stage 3, GFR 30-59 ml/min: Status: Acute (7) (HFpEF) heart failure with preserved ejection fraction: Status: Acute (8) Sinus bradycardia: Status: Acute (9) Altered mental status: Status: Acute (10) LEO (acute kidney injury): Status: Acute (11) Hyperkalemia: Status: Acute (12) CHF exacerbation: Status: Acute (13) CLL (chronic lymphocytic leukemia): Status: Chronic (14) Morbid obesity: Status: Acute (15) Steroid-induced hyperglycemia: Status: Acute (16) Acute respiratory failure with hypoxia: Status: Acute (17) COPD exacerbation: Status: Acute (18) Chronic lymphocytic leukemia (CLL), B-cell: Status: Acute Plan so the plan is to continue the meropenem as her singular therapy continue BiPAP at least until tomorrow to be sure that the urine output is consistent and that renal failure is resolving and if so will wean from the BiPAP and do bedside swallow initiate feeding but I believe that the bradycardia was part and parcel of the uremia/ sepsis which is now resolving Quality Stroke Does the patient have a stroke diagnosis?: No VTE Prior VTE?: No VTE Risk Level:: Medical - moderate - high VTE Device Contraindication: Treatment Not Indicated VTE Drug Contraindication: N/A - Med Ordered
[2022-11-01 16:35] LABS: Glucose, Whole Blood 271 mg/dL (60-115)
[2022-11-01] MEDS: DOPamine HCL/D5W 400 MG/250 ML PLAST..BAG 25.13 MG IVCONT (16:51)
[2022-11-01 20:18] LABS: Glucose, Whole Blood 270 mg/dL (60-115)
[2022-11-01] MEDS: Latanoprost 0.005 % Ophth Sol 2.5 ML DROPS 1 DROP EYE-BOTH (20:22)
[2022-11-01] MEDS: Insulin Lispro 100 UNIT/ML 3 ML VIAL SUBCUT (20:28)
[2022-11-02] VITALS (34 sets, daily range): BP systolic 99–147; BP diastolic 33–101; PULSE 56–93; RESP 12–26; TEMP 36.2–36.8; O2SAT 93–100; BMI 46.0
[2022-11-02] MEDS: Heparin Sodium,Porcine 5,000 UNIT/ML VIAL 5000 UNIT SUBCUT ×3 (02:08→16:52)
[2022-11-02 04:48] LABS: VBG Base Excess 4.3 mmol/L; VBG HCO3 27 mmol/L (22-26); VBG pCO2 34 mmHg; VBG pH 7.51 (7.32-7.43); VBG pO2 43 mmHg
[2022-11-02] MEDS: DOPamine HCL/D5W 400 MG/250 ML PLAST..BAG 12.56 MG IVCONT (04:55)
[2022-11-02 05:02] LABS: MANUAL DIFF FLAG NO
[2022-11-02 05:05] LABS: Basophils Percent Auto 0.2 % (0-2); Eosinophils Absolute Auto 0.6 X10*3/uL (0.0-0.4); Eosinophils Percent Auto 4.4 % (0-4); Hematocrit 25.5 % (37.0-47.0); Imm Gran Abs Auto 0.06 X10*3/uL (0.00-0.03); Imm Gran Pct Auto 0.5 % (0.0-0.4); Lymphocytes Absolute Auto 0.9 X10*3/uL (1.2-4.9); Lymphocytes Percent Auto 6.8 % (20-40); Mean Corpuscular HGB Conc 31.4 g/dl (31.0-35.0); Mean Corpuscular Hemoglobin 25.2 pg (27.0-33.0); Mean Corpuscular Volume 80.2 fL (80.0-98.0); Mean Platelet Volume 11.8 fL (9.4-12.3); Monocytes Percent Auto 8.2 % (2-11); Neutrophils Absolute Auto 9.9 x10*3/uL (2.0-8.3); Neutrophils Percent Auto 79.9 % (45-73); Platelet Count 163 X10*3/uL (160-400); Red Blood Count 3.18 X10*6/uL (4.20-5.50); Red Cell Distribution Width 14.9 % (11.0-16.0); White Blood Count 12.4 X10*3/uL (4.8-10.8)
[2022-11-02 05:10] LABS: Venous Blood Gas Refer to POC result
[2022-11-02 05:22] LABS: Anion Gap 21 (12-20); Blood Urea Nitrogen 54 mg/dL (9-16); Calcium 8.5 mg/dL (8.4-10.2); Carbon Dioxide 21 mmol/L (22-29); Chloride 101 mmol/L (96-108); Creatinine Clr Calc Pharmacy 25.2; Estimated Glomerular Filt Rate 17; Glucose Random 179 mg/dL (60-115); Magnesium 2.1 mg/dL (1.6-2.6); Phosphorus 3.2 mg/dL (2.7-4.5); Potassium 3.7 mmol/L (3.3-5.1); Sodium 139 mmol/L (135-145)
[2022-11-02] MEDS: 0.9 % Sodium Chloride Flush 3 ML SYRINGE IVFLUSH ×3 (07:34→23:54)
[2022-11-02] MEDS: Artificial Tears 15 ML DROPS 1 DROP EYE-BOTH ×2 (07:37→20:48)
[2022-11-02] MEDS: prednisoLONE Acetate 1 % Oph Susp 5 ML DRPBTL 1 DROP EYE-RIGHT (07:39)
[2022-11-02] MEDS: Nystatin Powder 15 GM BOTTLE 1 APPL TOPICAL ×2 (07:40→20:48)
[2022-11-02] MEDS: levalbuterol HCL 1.25 MG/3 ML VIAL.NEB INHALE ×4 (07:46→20:00)
[2022-11-02 08:20] LABS: Glucose, Whole Blood 176 mg/dL (60-115)
--- NOTE | 2022-11-02 10:05 | PM.PNNEP ---
Subjective Subjective Date of Service: 11/02/22 Principal diagnosis: Acute kidney injury, bradycardia, decompensated heart failure. Interval history: Events noted. Urine Output has improved. Creatinine is trending down. Physical Exam Vital Signs: Vital Signs: Last Vital Signs Temp 97.8 F 11/02/22 08:00 Pulse 72 11/02/22 09:00 Resp 15 11/02/22 09:00 BP 115/43 L 11/02/22 09:00 Pulse Ox 100 11/02/22 09:00 O2 Del Method Nasal Cannula 11/02/22 09:00 O2 Flow Rate 1 11/02/22 09:00 FiO2 28 11/02/22 07:50 Oxygen Flow Rate 4 10/27/22 20:01 BMI result Body Mass Index 46.0 Comfortable Neck is supple Lung: Air entry Diminished with rhonchi Heart: S1,S2, normal. No rub Abd: Soft. BS + NS : Alert.No asterexis Ext: 1+ edema Const: General: alert and awake HEENT: Head: Yes normocephalic and Yes atraumatic Neck: Neck: Yes supple Resp: Auscultation: diminished lung sounds Cardio: Rate: bradycardic Heart sounds: S1 normal heart sound present and S2 normal heart sound present GI: Palpation (GI): Soft to palpation and nontender Extrem: General: Yes pedal edema Objective Data Labs 11/02/22 04:41 11/02/22 04:41 Labs: Laboratory Results - last 24 hr 10/29/22 10/29/22 11/01/22 19:13 19:13 11:42 WBC RBC Hgb Hct MCV MCH MCHC RDW Plt Count MPV Immature Gran % (Auto) Neut % (Auto) Lymph % (Auto) [place] % (Auto) Eos % (Auto) Baso % (Auto) Lymph # (Auto) [place] # (Auto) Eos # (Auto) Baso # (Auto) Abs Immat Gran (auto) Absolute Neuts (auto) Absolute Nucleated RBC Nucleated RBC % (auto) VBG pH VBG pCO2 VBG pO2 VBG HCO3 VBG O2 Saturation VBG Base Excess Sodium Potassium Chloride Carbon Dioxide Anion Gap BUN Creatinine Estim Creat Clear Calc Estimated GFR POC Glucose 266 H Random Glucose Calcium Phosphorus Magnesium Albumin Proteinase 3 (PR3) Ab <1.0 Myeloperoxidase Ab <1.0 Free [place] LC, Quant 87.5 H Free [place]ambda LC, Quant 52.7 H Free [place]/Lambda Ratio 1.66 H 11/01/22 11/01/22 11/02/22 16:19 20:15 04:37 WBC RBC Hgb Hct MCV MCH MCHC RDW Plt Count MPV Immature Gran % (Auto) Neut % (Auto) Lymph % (Auto) [place] % (Auto) Eos % (Auto) Baso % (Auto) Lymph # (Auto) [place] # (Auto) Eos # (Auto) Baso # (Auto) Abs Immat Gran (auto) Absolute Neuts (auto) Absolute Nucleated RBC Nucleated RBC % (auto) VBG pH 7.51 H VBG pCO2 34 VBG pO2 43 VBG HCO3 27 H VBG O2 Saturation 79.0 VBG Base Excess 4.3 Sodium Potassium Chloride Carbon Dioxide Anion Gap BUN Creatinine Estim Creat Clear Calc Estimated GFR POC Glucose 271 H 270 H Random Glucose Calcium Phosphorus Magnesium Albumin Proteinase 3 (PR3) Ab Myeloperoxidase Ab Free [place] LC, Quant Free [place]ambda LC, Quant Free [place]/Lambda Ratio 11/02/22 11/02/22 11/02/22 04:41 04:41 07:22 WBC 12.4 H RBC 3.18 L Hgb 8.0 L Hct 25.5 L MCV 80.2 MCH 25.2 L MCHC 31.4 RDW 14.9 Plt Count 163 MPV 11.8 Immature Gran % (Auto) 0.5 H Neut % (Auto) 79.9 H Lymph % (Auto) 6.8 L [place] % (Auto) 8.2 Eos % (Auto) 4.4 H Baso % (Auto) 0.2 Lymph # (Auto) 0.9 L [place] # (Auto) 1.0 Eos # (Auto) 0.6 H Baso # (Auto) 0.0 Abs Immat Gran (auto) 0.06 H Absolute Neuts (auto) 9.9 H Absolute Nucleated RBC 0.000 Nucleated RBC % (auto) 0.0 VBG pH VBG pCO2 VBG pO2 VBG HCO3 VBG O2 Saturation VBG Base Excess Sodium 139 Potassium 3.7 Chloride 101 Carbon Dioxide 21 L Anion Gap 21 H BUN 54 H Creatinine 2.82 H Estim Creat Clear Calc 25.2 Estimated GFR 17 POC Glucose 176 H Random Glucose 179 H Calcium 8.5 Phosphorus 3.2 Magnesium 2.1 Albumin 3.0 L Proteinase 3 (PR3) Ab Myeloperoxidase Ab Free [place] LC, Quant Free [place]ambda LC, Quant Free [place]/Lambda Ratio Microbiology Microbiology Results: Microbiology 10/31/22 09:09 Blood - Venous Blood Culture - Preliminary No growth after 24 hours. 10/31/22 09:13 Blood - Venous Blood Culture - Preliminary No growth after 24 hours. 10/28/22 Unknown Urine clean catch - Urine malik top Urine Culture - Final Escherichia coli Procedures Date of Service Date of Service: 11/02/22 Assessment & Plan Assessment and plan (1) LEO (acute kidney injury): Status: Acute (2) Hyperkalemia: Status: Acute (3) (HFpEF) heart failure with preserved ejection fraction: Status: Acute (4) CKD (chronic kidney disease) stage 3, GFR 30-59 ml/min: Status: Acute Plan multifactorial LEO: -congestive nephrosarca c/w cardio renal syndrome -acute tubular injury -obstructive uropathy CT scan showed mild left hydronephrosis per urology c/w ascending left pyelonephristis known CKD baseline Scr ~ 1.2 mg/dl h/o HFpEF REC renal function is improving. hold HD today urology following ABx monitor urine output follow kidney function and electrolytes Time Spent With Patient Time: Total time managing care of this patient today ____ minutes. Progress Note: Quality Stroke Does the patient have a stroke diagnosis?: No
--- NOTE | 2022-11-02 10:06 | P.PNCC_ITS ---
Subjective Subjective Date of Service: 11/02/22 Interval History: 72-year-old type 2 diabetic and morbidly obese female with obstructive sleep apnea and chronic diastolic CHF and chronic least stage III renal failure and a background of CLL who has presented again with Gram-negative sepsis this time it is and ESBL E coli and she is on meropenem and all signs of sepsis are resolving and her dopamine that was preserving both heart rate and blood pressure is now weaned down to 2.5 micrograms/kilogram but we can not go lower because of persistent septic affects on the hemodynamics namely low diastolic pressure and low mean arterial pressure so that remains but she is increasingly awake now off BiPAP tolerating nasal cannula passing swallow so were going to start feeding bradycardia has resolved but there is an underlying waking Bach periodicity but heart rates are still averaging 75-80 with oxygen saturations now unsupported just on oxygen of 100% blood pressure 126/52 per mean of 77 bedside echo with preserved LV function Critical Care Time (minutes): 45 Physical Exam Vital Signs: Vital Signs: Last Vital Signs Temp 97.8 F 11/02/22 08:00 Pulse 72 11/02/22 09:00 Resp 15 11/02/22 09:00 BP 115/43 L 11/02/22 09:00 Pulse Ox 100 11/02/22 09:00 O2 Del Method Nasal Cannula 11/02/22 09:00 O2 Flow Rate 1 11/02/22 09:00 FiO2 28 11/02/22 07:50 Oxygen Flow Rate 4 10/27/22 20:01 BMI result Body Mass Index 46.0 awake and alert and oriented bedside echo with normal LV function lungs free of adventitious sounds no accessory muscle a diaphragm effort skin is intact with no acrocyanosis abdomen soft with no organomegaly Objective Data Labs 11/02/22 04:41 11/02/22 04:41 Labs: Laboratory Results - last 24 hr 10/29/22 10/29/22 11/01/22 19:13 19:13 11:42 WBC RBC Hgb Hct MCV MCH MCHC RDW Plt Count MPV Immature Gran % (Auto) Neut % (Auto) Lymph % (Auto) [place] % (Auto) Eos % (Auto) Baso % (Auto) Lymph # (Auto) [place] # (Auto) Eos # (Auto) Baso # (Auto) Abs Immat Gran (auto) Absolute Neuts (auto) Absolute Nucleated RBC Nucleated RBC % (auto) VBG pH VBG pCO2 VBG pO2 VBG HCO3 VBG O2 Saturation VBG Base Excess Sodium Potassium Chloride Carbon Dioxide Anion Gap BUN Creatinine Estim Creat Clear Calc Estimated GFR POC Glucose 266 H Random Glucose Calcium Phosphorus Magnesium Albumin Proteinase 3 (PR3) Ab <1.0 Myeloperoxidase Ab <1.0 Free [place] LC, Quant 87.5 H Free Lambda LC, Quant 52.7 H Free [place]/Lambda Ratio 1.66 H 11/01/22 11/01/22 11/02/22 16:19 20:15 04:37 WBC RBC Hgb Hct MCV MCH MCHC RDW Plt Count MPV Immature Gran % (Auto) Neut % (Auto) Lymph % (Auto) [place] % (Auto) Eos % (Auto) Baso % (Auto) Lymph # (Auto) [place] # (Auto) Eos # (Auto) Baso # (Auto) Abs Immat Gran (auto) Absolute Neuts (auto) Absolute Nucleated RBC Nucleated RBC % (auto) VBG pH 7.51 H VBG pCO2 34 VBG pO2 43 VBG HCO3 27 H VBG O2 Saturation 79.0 VBG Base Excess 4.3 Sodium Potassium Chloride Carbon Dioxide Anion Gap BUN Creatinine Estim Creat Clear Calc Estimated GFR POC Glucose 271 H 270 H Random Glucose Calcium Phosphorus Magnesium Albumin Proteinase 3 (PR3) Ab Myeloperoxidase Ab Free [place] LC, Quant Free [place]ambda LC, Quant Free [place]/Lambda Ratio 11/02/22 11/02/22 11/02/22 04:41 04:41 07:22 WBC 12.4 H RBC 3.18 L Hgb 8.0 L Hct 25.5 L MCV 80.2 MCH 25.2 L MCHC 31.4 RDW 14.9 Plt Count 163 MPV 11.8 Immature Gran % (Auto) 0.5 H Neut % (Auto) 79.9 H Lymph % (Auto) 6.8 L [place] % (Auto) 8.2 Eos % (Auto) 4.4 H Baso % (Auto) 0.2 Lymph # (Auto) 0.9 L [place] # (Auto) 1.0 Eos # (Auto) 0.6 H Baso # (Auto) 0.0 Abs Immat Gran (auto) 0.06 H Absolute Neuts (auto) 9.9 H Absolute Nucleated RBC 0.000 Nucleated RBC % (auto) 0.0 VBG pH VBG pCO2 VBG pO2 VBG HCO3 VBG O2 Saturation VBG Base Excess Sodium 139 Potassium 3.7 Chloride 101 Carbon Dioxide 21 L Anion Gap 21 H BUN 54 H Creatinine 2.82 H Estim Creat Clear Calc 25.2 Estimated GFR 17 POC Glucose 176 H Random Glucose 179 H Calcium 8.5 Phosphorus 3.2 Magnesium 2.1 Albumin 3.0 L Proteinase 3 (PR3) Ab Myeloperoxidase Ab Free [place] LC, Quant Free [place]ambda LC, Quant Free [place]/Lambda Ratio Microbiology Microbiology Results: Microbiology 10/31/22 09:09 Blood - Venous Blood Culture - Preliminary No growth after 24 hours. 10/31/22 09:13 Blood - Venous Blood Culture - Preliminary No growth after 24 hours. 10/28/22 Unknown Urine clean catch - Urine malik top Urine Culture - Final Escherichia coli Progress Note: A&P Assessment and plan (1) Heart block AV second degree: Status: Acute (2) LATONYA (obstructive sleep apnea): Status: Acute (3) Diabetes mellitus with insulin therapy: Status: Acute (4) Pyelonephritis: Status: Acute (5) Bradycardia: Status: Acute (6) CKD (chronic kidney disease) stage 3, GFR 30-59 ml/min: Status: Acute (7) (HFpEF) heart failure with preserved ejection fraction: Status: Acute (8) Sinus bradycardia: Status: Acute (9) Altered mental status: Status: Acute (10) LEO (acute kidney injury): Status: Acute (11) Hyperkalemia: Status: Acute (12) CHF exacerbation: Status: Acute (13) CLL (chronic lymphocytic leukemia): Status: Chronic (14) Morbid obesity: Status: Acute (15) Steroid-induced hyperglycemia: Status: Acute (16) Acute respiratory failure with hypoxia: Status: Acute (17) COPD exacerbation: Status: Acute (18) Chronic lymphocytic leukemia (CLL), B-cell: Status: Acute Plan so the plan is to start her on a diet and begin at least bedside physical therapy probably will discontinue both Turner catheter as well as the dialysis catheter within the next 24 hours and hopefully be able to wean the dopamine Quality Stroke Does the patient have a stroke diagnosis?: No VTE Prior VTE?: No VTE Risk Level:: Medical - moderate - high VTE Device Contraindication: Treatment Not Indicated VTE Drug Contraindication: N/A - Med Ordered
[2022-11-02] MEDS: polyethylene glycoL 3350 17 GM POWD.PACK PO (10:23)
[2022-11-02] MEDS: timoloL maleate 0.5 % Oph Sol 5 ML DRBTL 1 DROP EYE-RIGHT ×2 (10:26→20:48)
[2022-11-02 11:22] LABS: VBG Base Excess 1.8 mmol/L; VBG HCO3 25 mmol/L (22-26); VBG pCO2 35 mmHg; VBG pH 7.46 (7.32-7.43); VBG pO2 49 mmHg
[2022-11-02 11:29] LABS: Glucose, Whole Blood 195 mg/dL (60-115)
[2022-11-02] MEDS: Lactulose 20 GM/30 ML SOLUTION 30 GM PO (12:07)
[2022-11-02] MEDS: Insulin Lispro 100 UNIT/ML 3 ML VIAL SUBCUT ×3 (12:08→20:47)
[2022-11-02] MEDS: Hydrocortisone Sod Succ/PF 100 MG VIAL IVPUSH (12:27)
[2022-11-02 16:10] LABS: Glucose, Whole Blood 262 mg/dL (60-115)
[2022-11-02 18:42] LABS: Venous Blood Gas Refer to POC result
[2022-11-02 20:37] LABS: Glucose, Whole Blood 321 mg/dL (60-115)
[2022-11-02] MEDS: Atorvastatin Calcium 10 MG TABLET PO (20:43)
[2022-11-02] MEDS: Melatonin 3 MG TABLET 6 MG PO (20:45)
[2022-11-02] MEDS: Latanoprost 0.005 % Ophth Sol 2.5 ML DROPS 1 DROP EYE-BOTH (20:49)
[2022-11-03] VITALS (26 sets, daily range): BP systolic 97–146; BP diastolic 30–81; PULSE 66–99; RESP 14–23; TEMP 36.1–37.1; O2SAT 94–100; BMI 45.9
[2022-11-03] MEDS: levalbuterol HCL 1.25 MG/3 ML VIAL.NEB INHALE ×5 (00:13→19:52)
[2022-11-03] MEDS: Heparin Sodium,Porcine 5,000 UNIT/ML VIAL 5000 UNIT SUBCUT ×3 (02:31→17:04)
[2022-11-03 04:57] LABS: VBG Base Excess 5.4 mmol/L; VBG HCO3 27 mmol/L (22-26); VBG pCO2 30 mmHg; VBG pH 7.56 (7.32-7.43); VBG pO2 33 mmHg
[2022-11-03 05:07] LABS: Venous Blood Gas Refer to POC result
[2022-11-03 05:13] LABS: MANUAL DIFF FLAG NO
[2022-11-03 05:16] LABS: Basophils Percent Auto 0.2 % (0-2); Eosinophils Absolute Auto 0.2 X10*3/uL (0.0-0.4); Eosinophils Percent Auto 1.2 % (0-4); Hematocrit 24.1 % (37.0-47.0); Hemoglobin 7.6 g/dl (12.0-16.0); Imm Gran Abs Auto 0.15 X10*3/uL (0.00-0.03); Imm Gran Pct Auto 1.2 % (0.0-0.4); Lymphocytes Percent Auto 7.7 % (20-40); Mean Corpuscular HGB Conc 31.5 g/dl (31.0-35.0); Mean Corpuscular Hemoglobin 25.2 pg (27.0-33.0); Mean Corpuscular Volume 79.8 fL (80.0-98.0); Monocytes Absolute Auto 0.9 X10*3/uL (0.1-1.2); Monocytes Percent Auto 6.7 % (2-11); Neutrophils Absolute Auto 10.7 x10*3/uL (2.0-8.3); Platelet Count 157 X10*3/uL (160-400); Red Blood Count 3.02 X10*6/uL (4.20-5.50); Red Cell Distribution Width 15.5 % (11.0-16.0); White Blood Count 12.9 X10*3/uL (4.8-10.8)
[2022-11-03 05:32] LABS: Albumin Level 2.9 g/dL (3.5-5.0); Anion Gap 17 (12-20); Blood Urea Nitrogen 57 mg/dL (9-16); Calcium 8.6 mg/dL (8.4-10.2); Carbon Dioxide 22 mmol/L (22-29); Chloride 102 mmol/L (96-108); Creatinine Clr Calc Pharmacy 26.3; Estimated Glomerular Filt Rate 17; Glucose Random 242 mg/dL (60-115); Magnesium 2.2 mg/dL (1.6-2.6); Phosphorus 2.6 mg/dL (2.7-4.5); Potassium 3.2 mmol/L (3.3-5.1); Sodium 138 mmol/L (135-145)
[2022-11-03] MEDS: Levothyroxine Sodium 175 MCG TABLET PO (06:04)
[2022-11-03] MEDS: Potassium Chloride Packet 20 MEQ PACKET PO (06:04)
--- NOTE | 2022-11-03 06:33 | PM.CCPN ---
Subjective Subjective Date of Service: 11/03/22 Interval History: 72-year-old female background hypertensive diastolic dysfunction replaced hypothyroidism and at least moderate obesity with obstructive sleep apnea and underlying CLL on immunosuppressive therapy presented with ESBL E coli uroseptic picture was acutely uremic which is now slowly resolving after having had several dialysis treatments creatinine in is now slowly coming down currently 2.7 remains nonoliguric with adequate urine output and maintaining herself metabolically very nicely and remains on meropenem she has also got underlying Mobitz 1 second-degree heart block but average heart rates have picked up she was initially in the 40s clearly was an adequate and was contributing to some heart failure and fluid retention but that is all resolved average heart rate in our in the 70s she never has significant pauses just an occasional dropped QRS no longer requires dopamine she is off the BiPAP requirement just on nasal cannula with excellent blood gas is on a diet and is participating with physical therapy Critical Care Time (minutes): 35 Physical Exam Vital Signs: Vital Signs: Last Vital Signs Temp 98.4 F 11/03/22 03:00 Pulse 75 11/03/22 06:00 Resp 18 11/03/22 06:00 BP 125/46 L 11/03/22 06:00 Pulse Ox 96 11/03/22 06:00 O2 Del Method Room Air 11/03/22 06:00 O2 Flow Rate 1 11/02/22 10:00 FiO2 28 11/02/22 07:50 Oxygen Flow Rate 4 10/27/22 20:01 BMI result Body Mass Index 45.9 135/40 and a mean of 77 oxygen saturations 96% and heart rate 76 alert and oriented and nonfocal neurologically bedside echo with normal LV function chest clear without adventitious sounds abdomen benign no organomegaly Objective Data Labs 11/03/22 04:51 11/03/22 04:51 Labs: Laboratory Results - last 24 hr 11/02/22 11/02/22 11/02/22 07:22 11:12 11:24 WBC RBC Hgb Hct MCV MCH MCHC RDW Plt Count MPV Immature Gran % (Auto) Neut % (Auto) Lymph % (Auto) [place] % (Auto) Eos % (Auto) Baso % (Auto) Lymph # (Auto) [place] # (Auto) Eos # (Auto) Baso # (Auto) Abs Immat Gran (auto) Absolute Neuts (auto) Absolute Nucleated RBC Nucleated RBC % (auto) VBG pH 7.46 H VBG pCO2 35 VBG pO2 49 VBG HCO3 25 VBG O2 Saturation 81.0 VBG Base Excess 1.8 Sodium Potassium Chloride Carbon Dioxide Anion Gap BUN Creatinine Estim Creat Clear Calc Estimated GFR POC Glucose 176 H 195 H Random Glucose Calcium Phosphorus Magnesium Albumin 11/02/22 11/02/22 11/03/22 16:00 20:34 04:47 WBC RBC Hgb Hct MCV MCH MCHC RDW Plt Count MPV Immature Gran % (Auto) Neut % (Auto) Lymph % (Auto) [place] % (Auto) Eos % (Auto) Baso % (Auto) Lymph # (Auto) [place] # (Auto) Eos # (Auto) Baso # (Auto) Abs Immat Gran (auto) Absolute Neuts (auto) Absolute Nucleated RBC Nucleated RBC % (auto) VBG pH 7.56 H VBG pCO2 30 VBG pO2 33 VBG HCO3 27 H VBG O2 Saturation 62.0 VBG Base Excess 5.4 Sodium Potassium Chloride Carbon Dioxide Anion Gap BUN Creatinine Estim Creat Clear Calc Estimated GFR POC Glucose 262 H 321 H Random Glucose Calcium Phosphorus Magnesium Albumin 11/03/22 11/03/22 04:51 04:51 WBC 12.9 H RBC 3.02 L Hgb 7.6 L Hct 24.1 L MCV 79.8 L MCH 25.2 L MCHC 31.5 RDW 15.5 Plt Count 157 L MPV 12.0 Immature Gran % (Auto) 1.2 H Neut % (Auto) 83.0 H Lymph % (Auto) 7.7 L [place] % (Auto) 6.7 Eos % (Auto) 1.2 Baso % (Auto) 0.2 Lymph # (Auto) 1.0 L [place] # (Auto) 0.9 Eos # (Auto) 0.2 Baso # (Auto) 0.0 Abs Immat Gran (auto) 0.15 H Absolute Neuts (auto) 10.7 H Absolute Nucleated RBC 0.000 Nucleated RBC % (auto) 0.0 VBG pH VBG pCO2 VBG pO2 VBG HCO3 VBG O2 Saturation VBG Base Excess Sodium 138 Potassium 3.2 L Chloride 102 Carbon Dioxide 22 Anion Gap 17 BUN 57 H Creatinine 2.70 H Estim Creat Clear Calc 26.3 Estimated GFR 17 POC Glucose Random Glucose 242 H Calcium 8.6 Phosphorus 2.6 L Magnesium 2.2 Albumin 2.9 L Microbiology Microbiology Results: Microbiology 10/31/22 09:13 Blood - Venous Blood Culture - Preliminary No growth after 48 hours. 10/31/22 09:09 Blood - Venous Blood Culture - Preliminary No growth after 48 hours. 10/28/22 Unknown Urine clean catch - Urine malik top Urine Culture - Final Escherichia coli Progress Note: A&P Assessment and plan (1) Heart block AV second degree: Status: Acute (2) LATONYA (obstructive sleep apnea): Status: Acute (3) Diabetes mellitus with insulin therapy: Status: Acute (4) Pyelonephritis: Status: Acute (5) Bradycardia: Status: Acute (6) CKD (chronic kidney disease) stage 3, GFR 30-59 ml/min: Status: Acute (7) (HFpEF) heart failure with preserved ejection fraction: Status: Acute (8) Sinus bradycardia: Status: Acute (9) Altered mental status: Status: Acute (10) LEO (acute kidney injury): Status: Acute (11) Hyperkalemia: Status: Acute (12) CHF exacerbation: Status: Acute (13) CLL (chronic lymphocytic leukemia): Status: Chronic (14) Morbid obesity: Status: Acute (15) Steroid-induced hyperglycemia: Status: Acute (16) Acute respiratory failure with hypoxia: Status: Acute (17) COPD exacerbation: Status: Acute (18) Chronic lymphocytic leukemia (CLL), B-cell: Status: Acute Plan plan is to discontinue her a central dialysis catheter and her Turner catheter Quality Stroke Does the patient have a stroke diagnosis?: No VTE Prior VTE?: No VTE Risk Level:: Medical - moderate - high VTE Device Contraindication: Treatment Not Indicated VTE Drug Contraindication: N/A - Med Ordered
[2022-11-03 07:26] LABS: Glucose, Whole Blood 216 mg/dL (60-115)
[2022-11-03] MEDS: predniSONE 5 MG TABLET 15 MG PO (07:31)
[2022-11-03] MEDS: Magnesium Oxide 400 MG TABLET 200 MG PO (07:31)
[2022-11-03] MEDS: 0.9 % Sodium Chloride Flush 3 ML SYRINGE IVFLUSH ×2 (07:32→15:44)
[2022-11-03] MEDS: Insulin Lispro 100 UNIT/ML 3 ML VIAL SUBCUT ×4 (07:32→20:22)
[2022-11-03] MEDS: Nystatin Powder 15 GM BOTTLE 1 APPL TOPICAL (07:37)
[2022-11-03] MEDS: Artificial Tears 15 ML DROPS 1 DROP EYE-BOTH ×2 (07:39→20:43)
[2022-11-03] MEDS: prednisoLONE Acetate 1 % Oph Susp 5 ML DRPBTL 1 DROP EYE-RIGHT (07:39)
--- NOTE | 2022-11-03 08:46 | MHC.CLN ---
F/U PO INTAKE 25-50% DIET RX: 2200DM 2GM NA-APPROPRIATE PT WITH FRAGILE SKIN -INCREASE PO PROTEIN INTAKE CONTINUE TO MONITOR PO INTAKE
[2022-11-03] MEDS: Acetaminophen 325 MG TABLET 650 MG PO (09:27)
[2022-11-03 11:37] LABS: Glucose, Whole Blood 306 mg/dL (60-115)
--- NOTE | 2022-11-03 15:46 | MHC.CM.PN ---
EMR REVIEWED. PT REMAINS IN ICU BUT OFF BIPAP AND IMPROVING, WORKING WITH P.T. P.T. STATES LTC VS HOME WITH 24/HR CARE AND VNA. CM WILL CONTINUE TO FOLLOW FOR DC NEEDS/PLAN.
[2022-11-03 16:20] LABS: Glucose, Whole Blood 381 mg/dL (60-115)
[2022-11-03] MEDS: Insulin Glargine,Hum.rec.anlog 100 UNIT/ML 10 ML VIAL 10 UNIT SUBCUT ×2 (16:49→20:22)
--- NOTE | 2022-11-03 17:18 | PC.NURSE ---
1718 patient transferring to [facility] floor, report given to receiving nurse. POC 381, Dr Tesfaye ordered 10 units of Lantus to be started and 10 units Lispro to be given with meal. Patient refusing for gibson catheter to be removed at this time, Dr Tesfaye aware and ok to transfer to floor with gibson. Patient states the purewick causes irritation and burning. Right IJ Dialysis catheter removed and peripheral IV obtained, hard stick. Denies any pain. Lung sounds diminished, on yajaira air tolerating well. Receiving updrafts. Receiving IV Meropenum. See assessment for further documentation.
[2022-11-03 17:28] LABS: Complement C3 99 mg/dL (83-193)
--- NOTE | 2022-11-03 17:29 | PM.EVENT ---
Event Note Date of Service: 11/03/22 Event Note: 72-year-old female with type 2 diabetes, LATONYA, diastolic congestive heart failure initially admitted to hospitalist service for acute CHF and LEO. She was found to have UTI with ESBL E coli sensitive to meropenem. Developed worsening acute on chronic renal failure with oliguria requiring temporary dialysis catheter and dialysis treatments in ICU ICU step down patient discussed with Dr. Tesfaye. She did require respiratory support with bipap but has been weaned. Has LATONYA diagnosed by no apneic episodes reported by child care center assistant director. While in ICU developed hyperkalemia and uremia and secondarily bradycardia with Wenckebach. As creatinine has improved, Wenckebach has resolved with very occasional dropped QRS is noted. Bradycardia has also resolved. Vitals are now stable and dialysis catheter has been removed. She is being transferred to [facility] to complete course of meropenem. Time Spent With Patient Time: Total time managing care of this patient today ____ minutes.
--- NOTE | 2022-11-03 17:48 | PC.NURSE ---
Patient admitted to med/tele unit from ICU. Report recieved from BALJEET Goff. Pt brought to room, not in any distress, resting comfortably. Call morocho in reach
[2022-11-03] MEDS: Melatonin 3 MG TABLET 6 MG PO (20:21)
[2022-11-03] MEDS: Atorvastatin Calcium 10 MG TABLET PO (20:22)
[2022-11-03 20:24] LABS: Glucose, Whole Blood 437 mg/dL (60-115)
[2022-11-03] MEDS: timoloL maleate 0.5 % Oph Sol 5 ML DRBTL 1 DROP EYE-RIGHT (20:42)
[2022-11-03] MEDS: Latanoprost 0.005 % Ophth Sol 2.5 ML DROPS 1 DROP EYE-BOTH (20:43)
[2022-11-04] VITALS (10 sets, daily range): BP systolic 118–163; BP diastolic 56–82; PULSE 72–92; RESP 17–20; TEMP 35.6–37.1; O2SAT 93–98; BMI 29.6
[2022-11-04] MEDS: Heparin Sodium,Porcine 5,000 UNIT/ML VIAL 5000 UNIT SUBCUT ×3 (01:50→17:30)
[2022-11-04] MEDS: 0.9 % Sodium Chloride Flush 3 ML SYRINGE IVFLUSH ×4 (01:50→21:35)
[2022-11-04] MEDS: Albuterol Sulfate (0.042%) 1.25 MG/3 ML VIAL.NEB INHALE (04:01)
[2022-11-04] MEDS: Levothyroxine Sodium 175 MCG TABLET PO (05:16)
[2022-11-04 07:27] LABS: Glucose, Whole Blood 158 mg/dL (60-115)
[2022-11-04 07:29] LABS: MANUAL DIFF FLAG NO
[2022-11-04 07:38] LABS: Basophils Absolute Auto 0.1 X10*3/uL (0.0-0.2); Basophils Percent Auto 0.4 % (0-2); Eosinophils Absolute Auto 0.5 X10*3/uL (0.0-0.4); Eosinophils Percent Auto 3.2 % (0-4); Hematocrit 25.4 % (37.0-47.0); Hemoglobin 7.8 g/dl (12.0-16.0); Imm Gran Abs Auto 0.17 X10*3/uL (0.00-0.03); Imm Gran Pct Auto 1.2 % (0.0-0.4); Lymphocytes Absolute Auto 1.8 X10*3/uL (1.2-4.9); Lymphocytes Percent Auto 12.5 % (20-40); Mean Corpuscular HGB Conc 30.7 g/dl (31.0-35.0); Mean Corpuscular Hemoglobin 24.7 pg (27.0-33.0); Mean Corpuscular Volume 80.4 fL (80.0-98.0); Mean Platelet Volume 11.9 fL (9.4-12.3); Monocytes Percent Auto 6.9 % (2-11); Neutrophils Absolute Auto 10.8 x10*3/uL (2.0-8.3); Neutrophils Percent Auto 75.8 % (45-73); Platelet Count 171 X10*3/uL (160-400); Red Blood Count 3.16 X10*6/uL (4.20-5.50); Red Cell Distribution Width 15.9 % (11.0-16.0); White Blood Count 14.3 X10*3/uL (4.8-10.8)
[2022-11-04] MEDS: levalbuterol HCL 1.25 MG/3 ML VIAL.NEB INHALE (07:46)
[2022-11-04 07:48] LABS: Anion Gap 15 (12-20); Blood Urea Nitrogen 64 mg/dL (9-16); Calcium 8.6 mg/dL (8.4-10.2); Carbon Dioxide 23 mmol/L (22-29); Chloride 103 mmol/L (96-108); Creatinine Clr Calc Pharmacy 22.7; Estimated Glomerular Filt Rate 19; Glucose Random 157 mg/dL (60-115); Potassium 3.4 mmol/L (3.3-5.1); Sodium 138 mmol/L (135-145)
--- NOTE | 2022-11-04 10:28 | P.PNNP_ITS ---
Subjective Subjective Date of Service: 11/08/22 Principal diagnosis: Acute kidney injury, bradycardia, decompensated heart failure. Interval history: Events ntoed Transferred out of ICU UO improving Physical Exam 2 Vital Signs: Vital Signs: Last Vital Signs Temp 97.8 F 11/04/22 07:42 Pulse 75 11/04/22 07:47 Resp 20 11/04/22 07:47 BP 118/59 L 11/04/22 07:42 Pulse Ox 96 11/04/22 07:42 O2 Del Method Room Air 11/04/22 07:42 O2 Flow Rate 1 11/02/22 10:00 FiO2 28 11/02/22 07:50 Oxygen Flow Rate 4 10/27/22 20:01 BMI result Body Mass Index 29.6 Const: General: awake HEENT: Head: Yes normocephalic and Yes atraumatic Neck: Neck: Yes supple Resp: Auscultation: diminished lung sounds Cardio: Rate: bradycardic Heart sounds: S1 normal heart sound present and S2 normal heart sound present GI: Palpation (GI): Soft to palpation and nontender Extrem: General: Yes pedal edema Objective Data Labs 11/04/22 07:23 11/04/22 07:23 Labs: Laboratory Results - last 24 hr 10/29/22 11/03/22 11/03/22 19:13 11:34 16:14 WBC RBC Hgb Hct MCV MCH MCHC RDW Plt Count MPV Immature Gran % (Auto) Neut % (Auto) Lymph % (Auto) [place] % (Auto) Eos % (Auto) Baso % (Auto) Lymph # (Auto) [place] # (Auto) Eos # (Auto) Baso # (Auto) Abs Immat Gran (auto) Absolute Neuts (auto) Absolute Nucleated RBC Nucleated RBC % (auto) Sodium Potassium Chloride Carbon Dioxide Anion Gap BUN Creatinine Estim Creat Clear Calc Estimated GFR POC Glucose 306 H 381 H* Random Glucose Calcium Complement C3 99 Complement C4 38 11/03/22 11/04/22 11/04/22 19:51 07:05 07:23 WBC 14.3 H RBC 3.16 L Hgb 7.8 L Hct 25.4 L MCV 80.4 MCH 24.7 L MCHC 30.7 L RDW 15.9 Plt Count 171 MPV 11.9 Immature Gran % (Auto) 1.2 H Neut % (Auto) 75.8 H Lymph % (Auto) 12.5 L [place] % (Auto) 6.9 Eos % (Auto) 3.2 Baso % (Auto) 0.4 Lymph # (Auto) 1.8 [place] # (Auto) 1.0 Eos # (Auto) 0.5 H Baso # (Auto) 0.1 Abs Immat Gran (auto) 0.17 H Absolute Neuts (auto) 10.8 H Absolute Nucleated RBC 0.000 Nucleated RBC % (auto) 0.0 Sodium Potassium Chloride Carbon Dioxide Anion Gap BUN Creatinine Estim Creat Clear Calc Estimated GFR POC Glucose 437 H* 158 H Random Glucose Calcium Complement C3 Complement C4 11/04/22 07:23 WBC RBC Hgb Hct MCV MCH MCHC RDW Plt Count MPV Immature Gran % (Auto) Neut % (Auto) Lymph % (Auto) [place] % (Auto) Eos % (Auto) Baso % (Auto) Lymph # (Auto) [place] # (Auto) Eos # (Auto) Baso # (Auto) Abs Immat Gran (auto) Absolute Neuts (auto) Absolute Nucleated RBC Nucleated RBC % (auto) Sodium 138 Potassium 3.4 Chloride 103 Carbon Dioxide 23 Anion Gap 15 BUN 64 H Creatinine 2.47 H Estim Creat Clear Calc 22.7 Estimated GFR 19 POC Glucose Random Glucose 157 H Calcium 8.6 Complement C3 Complement C4 Microbiology Microbiology Results: Microbiology 10/31/22 09:13 Blood - Venous Blood Culture - Preliminary No growth after 48 hours. 10/31/22 09:09 Blood - Venous Blood Culture - Preliminary No growth after 48 hours. 10/28/22 Unknown Urine clean catch - Urine malik top Urine Culture - Final Escherichia coli Procedures Date of Service Date of Service: 11/08/22 Assessment & Plan Assessment and plan (1) LEO (acute kidney injury): Status: Acute (2) Hyperkalemia: Status: Acute (3) (HFpEF) heart failure with preserved ejection fraction: Status: Acute (4) CKD (chronic kidney disease) stage 3, GFR 30-59 ml/min: Status: Acute Plan multifactorial LEO: -congestive nephrosarca c/w cardio renal syndrome -acute tubular injury -obstructive uropathy CT scan showed mild left hydronephrosis per urology c/w ascending left pyelonephristis known CKD baseline Scr ~ 1.2 mg/dl h/o HFpEF REC renal function is improving. hold HD for now and watch renal function/UO urology following ABx Time Spent With Patient Time: Total time managing care of this patient today ____ minutes. Progress Note: Quality Stroke Does the patient have a stroke diagnosis?: No
[2022-11-04] MEDS: predniSONE 5 MG TABLET 15 MG PO (10:35)
[2022-11-04] MEDS: Magnesium Oxide 400 MG TABLET 200 MG PO (10:36)
[2022-11-04] MEDS: Insulin Glargine,Hum.rec.anlog 100 UNIT/ML 10 ML VIAL 10 UNIT SUBCUT ×2 (10:46→21:16)
[2022-11-04] MEDS: Insulin Lispro 100 UNIT/ML 3 ML VIAL SUBCUT ×4 (10:47→21:16)
[2022-11-04] MEDS: Artificial Tears 15 ML DROPS 1 DROP EYE-BOTH ×2 (11:04→21:18)
[2022-11-04] MEDS: prednisoLONE Acetate 1 % Oph Susp 5 ML DRPBTL 1 DROP EYE-RIGHT (11:04)
[2022-11-04] MEDS: timoloL maleate 0.5 % Oph Sol 5 ML DRBTL 1 DROP EYE-RIGHT ×2 (11:04→21:17)
[2022-11-04 11:06] LABS: Glucose, Whole Blood 212 mg/dL (60-115)
[2022-11-04] MEDS: Nystatin Powder 15 GM BOTTLE 1 APPL TOPICAL ×2 (12:43→21:35)
--- NOTE | 2022-11-04 14:42 | P.PNIM_ITS ---
Subjective Subjective Date of Service: 11/04/22 Interval History: seen and examined this morning follow up for UTI downgraded from ICU feeling well this am, no specific complaints Review of Systems Review of Systems: Yes all other systems are reviewed and are negative Constitutional Constitutional: Denies chills and Denies fever(s) Physical Exam Vital Signs: Vital Signs: Last Vital Signs Temp 97.6 F 11/04/22 11:22 Pulse 78 11/04/22 11:22 Resp 20 11/04/22 11:22 BP 122/56 L 11/04/22 11:22 Pulse Ox 95 11/04/22 11:22 O2 Del Method Room Air 11/04/22 11:22 O2 Flow Rate 1 11/02/22 10:00 FiO2 28 11/02/22 07:50 Oxygen Flow Rate 4 10/27/22 20:01 BMI result Body Mass Index 29.6 Const: General: comfortable, no acute distress, alert and awake Nutritional Appearance: obese Orientation/consciousness: patient oriented x3 Resp: Effort & Inspection: normal respiratory effort, able to speak in complete sentences, no respiratory distress and no use of accessory muscles Cardio: Rate: regular rate Heart sounds: S1 normal heart sound present and S2 normal heart sound present Skin: Other: chronic venous skin changes b/l lower extremities right hand skin changes - she states chronic Neuro: General: patient oriented x3 and CN's II-XI intact bilaterally Extrem: General: Yes no pedal edema Objective Data Active Medications Acetaminophen (Acetaminophen 325 Mg Tablet) 650 mg PO Q6H PRN PRN Reason: Pain, Mild (Pain Scale 1-3) Last Admin: 11/03/22 09:27 Dose: 650 mg Documented By: CHAUNCEY Artificial Tears (Artificial Tears 15 Ml Drops) 1 drop EYE-BOTH BID [facility] Last Admin: 11/04/22 11:04 Dose: 1 drop Documented By: RYAN Atorvastatin Calcium (Atorvastatin Calcium 10 Mg Tablet) 10 mg PO BEDTIME [facility] Last Admin: 11/03/22 20:22 Dose: 10 mg Documented By: BI Bisacodyl (Bisacodyl 10 Mg Supp.Rect) 10 mg LA DAILY PRN PRN Reason: Constipation Dextrose (Dextrose 50 % 25 Gm/50 Ml Syringe) 25 gm IVPUSH Q15M PRN; Protocol PRN Reason: per Hypoglycemia Standing Ord. Docusate Sodium (Docusate Sodium 100 Mg Capsule) 100 mg PO DAILY PRN PRN Reason: Constipation Glucose (Glucose Gel 15 Gm Gel..Gram.) 15 gm PO Q15M PRN; Protocol PRN Reason: per Hypoglycemia Standing Ord. Heparin Sodium (Porcine) (Heparin Sodium,Porcine 5,000 Unit/Ml Vial) 5,000 unit SUBCUT Q8H [facility] Last Admin: 11/04/22 11:05 Dose: 5,000 unit Documented By: RYAN Meropenem 500 mg/ Sodium (Chloride) 50 mls @ 100 mls/hr IV Q12H [facility] Stop: 11/06/22 19:59 Last Admin: 11/04/22 10:41 Dose: 100 mls/hr Documented By: RYAN Insulin Glargine (Insulin Glargine,Hum.Rec.Anlog 100 Unit/Ml 10 Ml Vial) 10 unit SUBCUT BID [facility] Last Admin: 11/04/22 10:46 Dose: 10 unit Documented By: RYAN Insulin Human Lispro (Insulin Lispro 100 Unit/Ml 3 Ml Vial) 0 unit SUBCUT QIDACHS [facility]; Protocol Last Admin: 11/04/22 12:42 Dose: 4 unit Documented By: RYAN Latanoprost (Latanoprost 0.005 % Ophth Mona 2.5 Ml Drops) 1 drop EYE-BOTH BEDTIME [facility] Last Admin: 11/03/22 20:43 Dose: 1 drop Documented By: BI Levothyroxine Sodium (Levothyroxine Sodium 175 Mcg Tablet) 175 mcg PO DAILY@0600 [facility] Last Admin: 11/04/22 05:16 Dose: 175 mcg Documented By: BI Magnesium Oxide (Magnesium Oxide 400 Mg Tablet) 200 mg PO DAILY [facility] Last Admin: 11/04/22 10:36 Dose: 200 mg Documented By: RYAN Melatonin (Melatonin 3 Mg Tablet) 6 mg PO BEDTIME [facility] Last Admin: 11/03/22 20:21 Dose: 6 mg Documented By: BI Pt Own ([Calquence ( Acalabrutinib Mal)] 100 Mg Tab 100 mg PO BID [facility] Last Admin: 11/04/22 11:03 Dose: 100 mg Documented By: RYAN Non-Formulary Medication (Brinzolamide-Brimonidine [Simbrinza]) 1 drop EYE- RIGHT BID [facility] Nystatin (Nystatin Powder 15 Gm Bottle) 1 appl TOPICAL BID ALAN; Protocol Last Admin: 11/04/22 12:43 Dose: 1 appl Documented By: RYAN Pharmacy Consult (Consult Rx Perform Med Rec) 1 each MISCELLANE ONCE PRN PRN Reason: Consult order Polyethylene Glycol (Polyethylene Glycol 3350 17 Gm Powd.Pack) 17 gm PO BID [facility] Last Admin: 11/04/22 11:06 Dose: Not Given Documented By: RYAN Non-Admin Reason: Patient Refused Prednisolone Acetate (Prednisolone Acetate 1 % Oph Susp 5 Ml Drpbtl) 1 drop EYE-RIGHT DAILY [facility] Last Admin: 11/04/22 11:04 Dose: 1 drop Documented By: RYAN Prednisone (Prednisone 5 Mg Tablet) 15 mg PO DAILY [facility] Last Admin: 11/04/22 10:35 Dose: 15 mg Documented By: RYAN Senna (Sennosides 8.6 Mg Tablet) 17.2 mg PO DAILY PRN PRN Reason: Constipation Sodium Chloride (0.9 % Sodium Chloride Flush 3 Ml Syringe) 3 ml IVFLUSH QSHIFT [facility] Last Admin: 11/04/22 11:01 Dose: 3 ml Documented By: RYAN Timolol Maleate (Timolol Maleate 0.5 % Oph Mona 5 Ml Drbtl) 1 drop EYE-RIGHT BID [facility] Last Admin: 11/04/22 11:04 Dose: 1 drop Documented By: RYAN Labs 11/04/22 07:23 11/04/22 07:23 Labs: Laboratory Results - last 24 hr 10/29/22 11/03/22 11/03/22 19:13 16:14 19:51 MCV MCH MCHC RDW Plt Count MPV Immature Gran % (Auto) Neut % (Auto) Lymph % (Auto) [place] % (Auto) Eos % (Auto) Baso % (Auto) Lymph # (Auto) [place] # (Auto) Eos # (Auto) Baso # (Auto) Abs Immat Gran (auto) Absolute Neuts (auto) Absolute Nucleated RBC Nucleated RBC % (auto) Anion Gap Estim Creat Clear Calc Estimated GFR POC Glucose 381 H* 437 H* Random Glucose Calcium Complement C3 99 Complement C4 38 11/04/22 11/04/2223 07:05 07:23 07:23 MCV 80.4 MCH 24.7 L MCHC 30.7 L RDW 15.9 Plt Count 171 MPV 11.9 Immature Gran % (Auto) 1.2 H Neut % (Auto) 75.8 H Lymph % (Auto) 12.5 L [place] % (Auto) 6.9 Eos % (Auto) 3.2 Baso % (Auto) 0.4 Lymph # (Auto) 1.8 [place] # (Auto) 1.0 Eos # (Auto) 0.5 H Baso # (Auto) 0.1 Abs Immat Gran (auto) 0.17 H Absolute Neuts (auto) 10.8 H Absolute Nucleated RBC 0.000 Nucleated RBC % (auto) 0.0 Anion Gap 15 Estim Creat Clear Calc 22.7 Estimated GFR 19 POC Glucose 158 H Random Glucose 157 H Calcium 8.6 Complement C3 Complement C4 11/04/22 10:54 MCV MCH MCHC RDW Plt Count MPV Immature Gran % (Auto) Neut % (Auto) Lymph % (Auto) [place] % (Auto) Eos % (Auto) Baso % (Auto) Lymph # (Auto) [place] # (Auto) Eos # (Auto) Baso # (Auto) Abs Immat Gran (auto) Absolute Neuts (auto) Absolute Nucleated RBC Nucleated RBC % (auto) Anion Gap Estim Creat Clear Calc Estimated GFR POC Glucose 212 H Random Glucose Calcium Complement C3 Complement C4 Assessment and Plan (1) Pyelonephritis: Status: Acute (2) Heart block AV second degree: Status: Acute Plan This is a 72-year-old female with past medical history of CHF, CLL, COPD, comes into the hospital with complaints of shortness of breath found to have CHF exacerbation, LEO, and hyperkalemia.?She was found to have UTI with ESBL E coli sensitive to meropenem.? Developed worsening acute on chronic renal failure with oliguria requiring temporary dialysis catheter and dialysis treatments in ICU? ICU step down patient discussed with Dr. Tesfaye.? She did require respiratory support with bipap but has been weaned. Has LATONYA diagnosed by no apneic episodes reported by security patrol driver. While in ICU developed hyperkalemia and uremia and secondarily bradycardia with Wenckebach.? As creatinine has improved, Wenckebach has resolved with very occasional dropped QRS is noted.? Bradycardia has also resolved.? Vitals are now stable and dialysis catheter has been removed.? She is being transferred to [facility] to complete course of meropenem. acute pyelonephritis urine culture ESBL e.coli , on meropenem started on 10/28, plan to complete 10 day course of antibiotics acute diastolic CHF exacerbation echo showed normal EF, Impaired diastolic function, inferior vena cava severely dilated and does not collapse with inspiration suggestive of right heart strain s/p diuresis and dialysis on bumex at baseline - on hold for now chronic hypoxic respiratory failure currently on room air patient with history of obstructive sleep apnea currently not on CPAP Mobitz 1 second degree heart block HR initially in 30s/40s improved to 80s/90s metoprolol on hold s/p dopamine LEO on CKD 3 multifactorial due to cardiorenal syndrome, ATN, obstructive uropathy Status post temporary dialysis catheter and dialysis while in ICU. Dialysis catheter subsequently removed and renal function improving, but not quite back to baseline Nephrology following hyperkalemia resolved history of COPD - no acute exacerbation,- continue home inhalers on chronic prednisone - continue home prednisone dose diabetes continue lantus januvia on hold follow POCs, SSI, ADA diet hypothyroidism continue levothyroxine h/o CLL outpatient follow up morbid obesity recommend low-calorie diet. DVT prophylaxis:? Heparin subQ attending - dr. andrade dispo: pt rec home with 25/10 care and [facility] vs LTC requires ongoing inpatient stay for IV abx and safe dispo Time Spent With Patient Time: Total time managing care of this patient today ____ minutes. Quality Stroke Does the patient have a stroke diagnosis?: No VTE Prior VTE?: No VTE Risk Level:: Medical - moderate - high VTE Device Contraindication: Treatment Not Indicated VTE Drug Contraindication: N/A - Med Ordered
[2022-11-04 16:16] LABS: Glucose, Whole Blood 264 mg/dL (60-115)
[2022-11-04] MEDS: Albuterol/Iprat 2.5/0.5MG 3 ML AMPUL.NEB INHALE (16:20)
[2022-11-04 20:26] LABS: Glucose, Whole Blood 241 mg/dL (60-115)
[2022-11-04] MEDS: Melatonin 3 MG TABLET 6 MG PO (21:16)
[2022-11-04] MEDS: Atorvastatin Calcium 10 MG TABLET PO (21:16)
[2022-11-04] MEDS: Latanoprost 0.005 % Ophth Sol 2.5 ML DROPS 1 DROP EYE-BOTH (21:19)
[2022-11-05] VITALS (7 sets, daily range): BP systolic 120–181; BP diastolic 52–77; PULSE 70–94; RESP 17–20; TEMP 36.1–37.1; O2SAT 94–100
[2022-11-05] MEDS: Heparin Sodium,Porcine 5,000 UNIT/ML VIAL 5000 UNIT SUBCUT ×3 (02:05→16:47)
[2022-11-05] MEDS: Levothyroxine Sodium 175 MCG TABLET PO (05:03)
[2022-11-05 07:02] LABS: MANUAL DIFF FLAG NO
[2022-11-05 07:07] LABS: Basophils Absolute Auto 0.1 X10*3/uL (0.0-0.2); Basophils Percent Auto 0.4 % (0-2); Eosinophils Absolute Auto 0.5 X10*3/uL (0.0-0.4); Eosinophils Percent Auto 3.5 % (0-4); Hematocrit 26.5 % (37.0-47.0); Hemoglobin 8.3 g/dl (12.0-16.0); Imm Gran Abs Auto 0.19 X10*3/uL (0.00-0.03); Imm Gran Pct Auto 1.4 % (0.0-0.4); Lymphocytes Absolute Auto 1.6 X10*3/uL (1.2-4.9); Mean Corpuscular HGB Conc 31.3 g/dl (31.0-35.0); Mean Corpuscular Hemoglobin 25.5 pg (27.0-33.0); Mean Corpuscular Volume 81.3 fL (80.0-98.0); Mean Platelet Volume 11.3 fL (9.4-12.3); Monocytes Percent Auto 7.4 % (2-11); Neutrophils Absolute Auto 10.2 x10*3/uL (2.0-8.3); Neutrophils Percent Auto 75.3 % (45-73); Platelet Count 158 X10*3/uL (160-400); Red Blood Count 3.26 X10*6/uL (4.20-5.50); Red Cell Distribution Width 16.3 % (11.0-16.0); White Blood Count 13.6 X10*3/uL (4.8-10.8)
[2022-11-05 07:16] LABS: Glucose, Whole Blood 158 mg/dL (60-115)
[2022-11-05 07:27] LABS: Anion Gap 15 (12-20); Blood Urea Nitrogen 59 mg/dL (9-16); Calcium 8.7 mg/dL (8.4-10.2); Carbon Dioxide 23 mmol/L (22-29); Chloride 106 mmol/L (96-108); Creatinine Clr Calc Pharmacy 25.6; Estimated Glomerular Filt Rate 22; Glucose Random 162 mg/dL (60-115); Potassium 3.6 mmol/L (3.3-5.1); Sodium 140 mmol/L (135-145)
[2022-11-05] MEDS: 0.9 % Sodium Chloride Flush 3 ML SYRINGE IVFLUSH ×3 (10:39→21:38)
[2022-11-05] MEDS: Insulin Glargine,Hum.rec.anlog 100 UNIT/ML 10 ML VIAL 10 UNIT SUBCUT ×2 (10:39→21:38)
[2022-11-05] MEDS: Magnesium Oxide 400 MG TABLET 200 MG PO (10:40)
[2022-11-05] MEDS: predniSONE 5 MG TABLET 15 MG PO (10:40)
[2022-11-05] MEDS: Insulin Lispro 100 UNIT/ML 3 ML VIAL SUBCUT ×4 (10:40→21:37)
[2022-11-05] MEDS: prednisoLONE Acetate 1 % Oph Susp 5 ML DRPBTL 1 DROP EYE-RIGHT (10:42)
[2022-11-05] MEDS: Nystatin Powder 15 GM BOTTLE 1 APPL TOPICAL ×2 (10:42→21:53)
[2022-11-05] MEDS: timoloL maleate 0.5 % Oph Sol 5 ML DRBTL 1 DROP EYE-RIGHT ×2 (10:42→21:53)
[2022-11-05] MEDS: Artificial Tears 15 ML DROPS 1 DROP EYE-BOTH ×2 (10:42→21:53)
[2022-11-05 11:18] LABS: Glucose, Whole Blood 197 mg/dL (60-115)
[2022-11-05] MEDS: Albuterol/Iprat 2.5/0.5MG 3 ML AMPUL.NEB INHALE (11:28)
--- NOTE | 2022-11-05 13:49 | MHC.CLN ---
F/U PO INTAKE SLIGHTLY IMPROVED 50-75% DIET RX: 2200DM 2GM NA-APPROPRIATE PT WITH FRAGILE SKIN -INCREASE PO PROTEIN INTAKE CONTINUE TO MONITOR PO INTAKE
--- NOTE | 2022-11-05 15:14 | P.PNIM_ITS ---
Subjective Subjective Date of Service: 11/05/22 Interval History: seen and examined this morning follow up for CHF, renal failure feeling a little sob this am. o2 sats remain stable no cough Review of Systems Review of Systems: Yes all other systems are reviewed and are negative Constitutional Constitutional: Denies chills and Denies fever(s) Cardiovascular Cardiovascular: Denies chest pain, Denies palpitations and Reports dyspnea Respiratory Respiratory: Denies cough and Reports dyspnea Gastrointestinal Gastrointestinal: Denies abdominal pain Endocrine Endocrine: Denies palpitations Physical Exam Vital Signs: Vital Signs: Last Vital Signs Temp 97.0 F 11/05/22 11:19 Pulse 74 11/05/22 11:29 Resp 20 11/05/22 11:29 BP 137/68 11/05/22 11:19 Pulse Ox 96 11/05/22 11:19 O2 Del Method Room Air 11/05/22 11:19 O2 Flow Rate 97 11/05/22 03:24 FiO2 28 11/02/22 07:50 Oxygen Flow Rate 4 10/27/22 20:01 BMI result Body Mass Index 29.6 Const: General: cooperative, comfortable, no acute distress, alert and awake Nutritional Appearance: obese Orientation/consciousness: patient oriented x3 Resp: Other: diminished lung sounds Effort & Inspection: normal respiratory effort, able to speak in complete sentences, no respiratory distress and no use of accessory muscles Cardio: Rate: regular rate Heart sounds: S1 normal heart sound present and S2 normal heart sound present GI: Inspection: No distended and Yes obesity Palpation (GI): Soft to palpation and nontender Skin: Other: chronic venous skin changes b/l lower extremities right hand skin changes - she states chronic Neuro: General: patient oriented x3, moves all extremities and CN's II-XI intact bilaterally Extrem: General: Yes no pedal edema Objective Data Active Medications Acetaminophen (Acetaminophen 325 Mg Tablet) 650 mg PO Q6H PRN PRN Reason: Pain, Mild (Pain Scale 1-3) Last Admin: 11/03/22 09:27 Dose: 650 mg Documented By: CHAUNCEY Albuterol/Ipratropium (Albuterol/Iprat 2.5/0.5mg 3 Ml Ampul.Neb) 3 ml INHALE Q6H PRN PRN Reason: shortness of breath, wheezing Last Admin: 11/05/22 11:28 Dose: 3 ml Documented By: AMY Artificial Tears (Artificial Tears 15 Ml Drops) 1 drop EYE-BOTH BID [facility] Last Admin: 11/05/22 10:42 Dose: 1 drop Documented By: RYAN Atorvastatin Calcium (Atorvastatin Calcium 10 Mg Tablet) 10 mg PO BEDTIME [facility] Last Admin: 11/04/22 21:16 Dose: 10 mg Documented By: BI Bisacodyl (Bisacodyl 10 Mg Supp.Rect) 10 mg DE DAILY PRN PRN Reason: Constipation Dextrose (Dextrose 50 % 25 Gm/50 Ml Syringe) 25 gm IVPUSH Q15M PRN; Protocol PRN Reason: per Hypoglycemia Standing Ord. Docusate Sodium (Docusate Sodium 100 Mg Capsule) 100 mg PO DAILY PRN PRN Reason: Constipation Glucose (Glucose Gel 15 Gm Gel..Gram.) 15 gm PO Q15M PRN; Protocol PRN Reason: per Hypoglycemia Standing Ord. Heparin Sodium (Porcine) (Heparin Sodium,Porcine 5,000 Unit/Ml Vial) 5,000 unit SUBCUT Q8H [facility] Last Admin: 11/05/22 10:39 Dose: 5,000 unit Documented By: RYAN Meropenem 500 mg/ Sodium (Chloride) 50 mls @ 100 mls/hr IV Q12H [facility] Stop: 11/06/22 19:59 Last Infusion: 11/05/22 11:50 Dose: 0 mls/hr Documented By: RYAN Insulin Glargine (Insulin Glargine,Hum.Rec.Anlog 100 Unit/Ml 10 Ml Vial) 10 unit SUBCUT BID [facility] Last Admin: 11/05/22 10:39 Dose: 10 unit Documented By: RYAN Insulin Human Lispro (Insulin Lispro 100 Unit/Ml 3 Ml Vial) 0 unit SUBCUT QIDACHS [facility]; Protocol Last Admin: 11/05/22 12:29 Dose: 2 unit Documented By: RYAN Latanoprost (Latanoprost 0.005 % Ophth Mona 2.5 Ml Drops) 1 drop EYE-BOTH BEDTIME [facility] Last Admin: 11/04/22 21:19 Dose: 1 drop Documented By: BI Levothyroxine Sodium (Levothyroxine Sodium 175 Mcg Tablet) 175 mcg PO DAILY@0600 [facility] Last Admin: 11/05/22 05:03 Dose: 175 mcg Documented By: BI Magnesium Oxide (Magnesium Oxide 400 Mg Tablet) 200 mg PO DAILY [facility] Last Admin: 11/05/22 10:40 Dose: 200 mg Documented By: RYAN Melatonin (Melatonin 3 Mg Tablet) 6 mg PO BEDTIME [facility] Last Admin: 11/04/22 21:16 Dose: 6 mg Documented By: BI Pt Own ([Calquence ( Acalabrutinib Mal)] 100 Mg Tab 100 mg PO BID [facility] Last Admin: 11/05/22 10:42 Dose: 100 mg Documented By: RYAN Non-Formulary Medication (Brinzolamide-Brimonidine [Simbrinza]) 1 drop EYE- RIGHT BID [facility] Nystatin (Nystatin Powder 15 Gm Bottle) 1 appl TOPICAL BID [facility]; Protocol Last Admin: 11/05/22 10:42 Dose: 1 appl Documented By: RYAN Pharmacy Consult (Consult Rx Perform Med Rec) 1 each MISCELLANE ONCE PRN PRN Reason: Consult order Polyethylene Glycol (Polyethylene Glycol 3350 17 Gm Powd.Pack) 17 gm PO BID [facility] Last Admin: 11/05/22 10:46 Dose: Not Given Documented By: RYAN Non-Admin Reason: Patient Refused Prednisolone Acetate (Prednisolone Acetate 1 % Oph Susp 5 Ml Drpbtl) 1 drop EYE-RIGHT DAILY [facility] Last Admin: 11/05/22 10:42 Dose: 1 drop Documented By: RYAN Prednisone (Prednisone 5 Mg Tablet) 15 mg PO DAILY [facility] Last Admin: 11/05/22 10:40 Dose: 15 mg Documented By: RYAN Senna (Sennosides 8.6 Mg Tablet) 17.2 mg PO DAILY PRN PRN Reason: Constipation Sodium Chloride (0.9 % Sodium Chloride Flush 3 Ml Syringe) 3 ml IVFLUSH QSHIFT [facility] Last Admin: 11/05/22 10:39 Dose: 3 ml Documented By: RYAN Timolol Maleate (Timolol Maleate 0.5 % Oph Mona 5 Ml Drbtl) 1 drop EYE-RIGHT BID [facility] Last Admin: 11/05/22 10:42 Dose: 1 drop Documented By: RYAN Labs 11/05/22 06:57 11/05/22 06:57 Labs: Laboratory Results - last 24 hr 11/04/22 11/04/22 11/05/22 16:08 20:14 06:57 MCV 81.3 MCH 25.5 L MCHC 31.3 RDW 16.3 H Plt Count 158 L MPV 11.3 Immature Gran % (Auto) 1.4 H Neut % (Auto) 75.3 H Lymph % (Auto) 12.0 L [place] % (Auto) 7.4 Eos % (Auto) 3.5 Baso % (Auto) 0.4 Lymph # (Auto) 1.6 [place] # (Auto) 1.0 Eos # (Auto) 0.5 H Baso # (Auto) 0.1 Abs Immat Gran (auto) 0.19 H Absolute Neuts (auto) 10.2 H Absolute Nucleated RBC 0.000 Nucleated RBC % (auto) 0.0 Anion Gap Estim Creat Clear Calc Estimated GFR POC Glucose 264 H 241 H Random Glucose Calcium 11/05/22 11/05/22 11/05/22 06:57 07:01 10:54 MCV MCH MCHC RDW Plt Count MPV Immature Gran % (Auto) Neut % (Auto) Lymph % (Auto) [place] % (Auto) Eos % (Auto) Baso % (Auto) Lymph # (Auto) [place] # (Auto) Eos # (Auto) Baso # (Auto) Abs Immat Gran (auto) Absolute Neuts (auto) Absolute Nucleated RBC Nucleated RBC % (auto) Anion Gap 15 Estim Creat Clear Calc 25.6 Estimated GFR 22 POC Glucose 158 H 197 H Random Glucose 162 H Calcium 8.7 Microbiology Microbiology Results: Microbiology 10/31/22 09:09 Blood Culture - Final Blood - Venous No growth after 5 days. 10/31/22 09:13 Blood Culture - Final Blood - Venous No growth after 5 days. Assessment and Plan (1) Heart block AV second degree: Status: Acute (2) Pyelonephritis: Status: Acute Plan This is a 72-year-old female with past medical history of CHF, CLL, COPD, comes into the hospital with complaints of shortness of breath found to have CHF exacerbation, LEO, and hyperkalemia.?She was found to have UTI with ESBL E coli sensitive to meropenem.? Developed worsening acute on chronic renal failure with oliguria requiring temporary dialysis catheter and dialysis treatments in ICU? ICU step down patient discussed with Dr. Tesfaye.? She did require respiratory support with bipap but has been weaned. Has LATONYA diagnosed by no apneic episodes reported by signal maintainer helper. While in ICU developed hyperkalemia and uremia and secondarily bradycardia with Wenckebach.? As creatinine has improved, Wenckebach has resolved with very occasional dropped QRS is noted.? Bradycardia has also resolved.? Vitals are now stable and dialysis catheter has been removed.? She is being transferred to [facility] [place] to complete course of meropenem. acute pyelonephritis urine culture ESBL e.coli , on meropenem started on 10/28, plan to complete 10 day course of antibiotics, end date 11/06 acute diastolic CHF exacerbation echo showed normal EF, Impaired diastolic function, inferior vena cava severely dilated and does not collapse with inspiration suggestive of right heart strain s/p diuresis and dialysis in ICU now with sob and cxr showing increasing edema, will start IV bumex chronic hypoxic respiratory failure currently on room air patient with history of obstructive sleep apnea currently not on CPAP Mobitz 1 second degree heart block HR initially in 30s/40s improved to 80s/90s with treatment of LEO/CHF metoprolol on hold s/p dopamine LEO on CKD 3 multifactorial due to cardiorenal syndrome, ATN, obstructive uropathy Status post temporary dialysis catheter and dialysis while in ICU. Dialysis catheter subsequently removed and renal function improving, but not quite back to baseline Nephrology following acute on chronic normocytic anemia r/t acute illness. no evidence of acute blood loss H/H stable hyperkalemia resolved COPD - no acute exacerbation continue home inhalers on chronic prednisone - continue home dose diabetes continue lantus januvia on hold follow POCs, SSI, ADA diet hypothyroidism continue levothyroxine h/o CLL outpatient follow up morbid obesity recommend low-calorie diet. DVT prophylaxis:? Heparin subQ attending - dr. andrade dispo: pt rec home with 25/10 care and herman vs LTC requires ongoing inpatient stay for IV abx and safe dispo Time Spent With Patient Time: Total time managing care of this patient today ____ minutes. Quality Stroke Does the patient have a stroke diagnosis?: No VTE Prior VTE?: No VTE Risk Level:: Medical - moderate - high VTE Device Contraindication: Treatment Not Indicated VTE Drug Contraindication: N/A - Med Ordered
[2022-11-05 16:21] LABS: Glucose, Whole Blood 329 mg/dL (60-115)
--- NOTE | 2022-11-05 17:05 | P.PNNP_ITS ---
Subjective Subjective Date of Service: 11/05/22 Principal diagnosis: Acute kidney injury, bradycardia, decompensated heart failure. Interval history: Reports orthopnea. Cr better Has left hydro. Unilateral obstruction will not affect GFR, left hydro still needs intervention. Physical Exam Vital Signs: Vital Signs: Last Vital Signs Temp 97.8 F 11/05/22 15:30 Pulse 79 11/05/22 15:30 Resp 20 11/05/22 15:30 BP 144/63 H 11/05/22 15:30 Pulse Ox 96 11/05/22 15:30 O2 Del Method Room Air 11/05/22 15:30 O2 Flow Rate 97 11/05/22 03:24 FiO2 28 11/02/22 07:50 Oxygen Flow Rate 4 10/27/22 20:01 BMI result Body Mass Index 29.6 Const: Other: Gen: awake alert x3 ,no acute resp.distress HEENT: sclera anicteric, moist mucus membranes Neck: supple, no?JVD Lungs: diminished breath sounds,few wheeze,? no tachypnea, no crackles Heart: regular?rate and rhythm,no murmurs Abd: soft, obese,non-tender, bowel sounds audible,ecchmosis Ext: discoloration both legs,?Rt leg worsening swelling ,non?pitting edema,no tenderness no change in discoloration , left upper arm infiltration around IV Right dorsum of hand swollen,good radial pulse. Skin:? multiple areas of ecchymosis, Neuro: alert and oriented x3, no focal findings Psych: appropriate affect General: cooperative, healthy appearing, comfortable, no acute distress, alert , awake, in distress mild and respiratory, ill appearing, lethargic and tired appearing Orientation/consciousness: lethargic Objective Data Labs 11/05/22 06:57 11/05/22 06:57 Labs: Laboratory Results - last 24 hr 11/04/22 11/05/22 11/05/22 20:14 06:57 06:57 WBC 13.6 H RBC 3.26 L Hgb 8.3 L Hct 26.5 L MCV 81.3 MCH 25.5 L MCHC 31.3 RDW 16.3 H Plt Count 158 L MPV 11.3 Immature Gran % (Auto) 1.4 H Neut % (Auto) 75.3 H Lymph % (Auto) 12.0 L [place] % (Auto) 7.4 Eos % (Auto) 3.5 Baso % (Auto) 0.4 Lymph # (Auto) 1.6 [place] # (Auto) 1.0 Eos # (Auto) 0.5 H Baso # (Auto) 0.1 Abs Immat Gran (auto) 0.19 H Absolute Neuts (auto) 10.2 H Absolute Nucleated RBC 0.000 Nucleated RBC % (auto) 0.0 Sodium 140 Potassium 3.6 Chloride 106 Carbon Dioxide 23 Anion Gap 15 BUN 59 H Creatinine 2.19 H Estim Creat Clear Calc 25.6 Estimated GFR 22 POC Glucose 241 H Random Glucose 162 H Calcium 8.7 11/05/22 11/05/22 11/05/22 07:01 10:54 15:32 WBC RBC Hgb Hct MCV MCH MCHC RDW Plt Count MPV Immature Gran % (Auto) Neut % (Auto) Lymph % (Auto) [place] % (Auto) Eos % (Auto) Baso % (Auto) Lymph # (Auto) [place] # (Auto) Eos # (Auto) Baso # (Auto) Abs Immat Gran (auto) Absolute Neuts (auto) Absolute Nucleated RBC Nucleated RBC % (auto) Sodium Potassium Chloride Carbon Dioxide Anion Gap BUN Creatinine Estim Creat Clear Calc Estimated GFR POC Glucose 158 H 197 H 329 H Random Glucose Calcium Microbiology Microbiology Results: Microbiology 10/31/22 09:09 Blood - Venous Blood Culture - Final No growth after 5 days. 10/31/22 09:13 Blood - Venous Blood Culture - Final No growth after 5 days. 10/28/22 Unknown Urine clean catch - Urine malik top Urine Culture - Final Escherichia coli Procedures Date of Service Date of Service: 11/05/22 Assessment & Plan Assessment and plan (1) Heart block AV second degree: Status: Acute (2) Pyelonephritis: Status: Acute Plan Ms. Cindy Carbajal is a 72-year-old female with past medical history of CHF, CLL, COPD, comes into the hospital with complaints of shortness of breath found to have CHF exacerbation, LEO, and hyperkalemia.?She was found to have UTI with ESBL E coli sensitive to meropenem.? This is in the setting of Left ureteral stone and hydro. She developed worsening acute on chronic renal failure with oliguria requiring temporary dialysis catheter and dialysis treatments in ICU. While in ICU developed hyperkalemia and uremia and secondarily bradycardia with Wenckebach.?She is now off HD, with improved Cr, and transferred to [facility] [place] to complete course of meropenem. 1. LEO BL Cr 1.0mg/dL Cr peak 4.6mg/dL Anuric hyperkalemic renal failure s/p intermittent iHD now with renal recovery LEO 2/2 obstructive uropathy and septic ATN and nephrosarca. Plan: - Left ureteral stent needs attention It is the culprit for urosepsis - Unilateral hydro may not worsen GFR but will risk unilateral nephron loss - Appreciate Urology recs - OK for Bumex 2mg IV BID - gibson for UOP monitoring - meropenem. Time Spent With Patient Time: Total time managing care of this patient today ____ minutes. Progress Note: Quality Stroke Does the patient have a stroke diagnosis?: No
[2022-11-05 20:27] LABS: Glucose, Whole Blood 388 mg/dL (60-115)
[2022-11-05] MEDS: Atorvastatin Calcium 10 MG TABLET PO (21:37)
[2022-11-05] MEDS: Melatonin 3 MG TABLET 6 MG PO (21:37)
[2022-11-05] MEDS: Latanoprost 0.005 % Ophth Sol 2.5 ML DROPS 1 DROP EYE-BOTH (21:53)
[2022-11-06] MEDS: Heparin Sodium,Porcine 5,000 UNIT/ML VIAL 5000 UNIT SUBCUT ×3 (01:37→17:18)
[2022-11-06 03:25] VITALS: BP 178/77; PULSE 72; RESP 16; TEMP 36.2; O2SAT 96
[2022-11-06 05:04] VITALS: PULSE 78; RESP 16; O2SAT 98
[2022-11-06] MEDS: Albuterol/Iprat 2.5/0.5MG 3 ML AMPUL.NEB INHALE ×2 (05:04→17:19)
[2022-11-06] MEDS: Levothyroxine Sodium 175 MCG TABLET PO (05:30)
[2022-11-06 06:00] VITALS: BMI 46.0
[2022-11-06 06:30] LABS: Hemoglobin 8.8 g/dl (12.0-16.0); Mean Corpuscular HGB Conc 30.3 g/dl (31.0-35.0); Mean Corpuscular Hemoglobin 25.1 pg (27.0-33.0); Mean Corpuscular Volume 82.6 fL (80.0-98.0); Mean Platelet Volume 12.5 fL (9.4-12.3); Platelet Count 184 X10*3/uL (160-400); Red Blood Count 3.51 X10*6/uL (4.20-5.50); Red Cell Distribution Width 16.4 % (11.0-16.0); White Blood Count 13.9 X10*3/uL (4.8-10.8)
[2022-11-06 06:58] LABS: Anion Gap 16 (12-20); Blood Urea Nitrogen 56 mg/dL (9-16); Carbon Dioxide 22 mmol/L (22-29); Chloride 106 mmol/L (96-108); Creatinine Clr Calc Pharmacy 33.3; Estimated Glomerular Filt Rate 23; Glucose Random 131 mg/dL (60-115); Potassium 4.4 mmol/L (3.3-5.1); Sodium 140 mmol/L (135-145)
[2022-11-06 07:46] LABS: Glucose, Whole Blood 125 mg/dL (60-115)
[2022-11-06 08:00] VITALS: BP 143/62; PULSE 73; RESP 17; TEMP 35.9; O2SAT 94
[2022-11-06] MEDS: Insulin Glargine,Hum.rec.anlog 100 UNIT/ML 10 ML VIAL 10 UNIT SUBCUT ×2 (09:58→22:09)
[2022-11-06] MEDS: Magnesium Oxide 400 MG TABLET 200 MG PO (09:58)
[2022-11-06] MEDS: predniSONE 5 MG TABLET 15 MG PO (10:01)
[2022-11-06] MEDS: Bumetanide 1 MG/4 ML VIAL 2 MG IVPUSH ×2 (10:02→17:18)
[2022-11-06] MEDS: timoloL maleate 0.5 % Oph Sol 5 ML DRBTL 1 DROP EYE-RIGHT ×2 (10:03→22:11)
[2022-11-06] MEDS: prednisoLONE Acetate 1 % Oph Susp 5 ML DRPBTL 1 DROP EYE-RIGHT ×2 (10:03→11:54)
[2022-11-06] MEDS: 0.9 % Sodium Chloride Flush 3 ML SYRINGE IVFLUSH ×3 (10:04→22:12)
[2022-11-06 11:48] VITALS: BP 149/65; PULSE 70; RESP 17; TEMP 35.6; O2SAT 95
[2022-11-06] MEDS: Artificial Tears 15 ML DROPS 1 DROP EYE-BOTH ×2 (11:54→22:06)
[2022-11-06 11:55] LABS: Glucose, Whole Blood 184 mg/dL (60-115)
[2022-11-06] MEDS: Nystatin Powder 15 GM BOTTLE 1 APPL TOPICAL ×2 (11:57→22:13)
[2022-11-06] MEDS: Insulin Lispro 100 UNIT/ML 3 ML VIAL SUBCUT ×3 (12:14→22:10)
--- NOTE | 2022-11-06 12:52 | HO.PM.IMPN ---
Subjective Subjective Date of Service: 11/06/22 Interval History: seen and examined this morning follow up for CHF, renal failure Breathing is better Review of Systems Review of Systems: Yes all other systems are reviewed and are negative Constitutional Constitutional: Denies chills and Denies fever(s) Cardiovascular Cardiovascular: Denies chest pain, Denies palpitations and Reports dyspnea Respiratory Respiratory: Denies cough and Reports dyspnea Gastrointestinal Gastrointestinal: Denies abdominal pain Endocrine Endocrine: Denies palpitations Physical Exam Vital Signs: Vital Signs: Last Vital Signs Temp 96.1 F L 11/06/22 11:48 Pulse 70 11/06/22 11:48 Resp 17 11/06/22 11:48 BP 149/65 H 11/06/22 11:48 Pulse Ox 95 11/06/22 11:48 O2 Del Method Room Air 11/06/22 11:48 O2 Flow Rate 97 11/05/22 03:24 FiO2 28 11/02/22 07:50 Oxygen Flow Rate 4 10/27/22 20:01 BMI result Body Mass Index 46.0 Appearing in no acute distress LSCTA heart regular rate rhythm, clear S1, S2 positive bowel sounds, abdomen is soft, nontender neuro patient is alert x3, no focal deficits Objective Data Active Medications Acetaminophen (Acetaminophen 325 Mg Tablet) 650 mg PO Q6H PRN PRN Reason: Pain, Mild (Pain Scale 1-3) Last Admin: 11/03/22 09:27 Dose: 650 mg Documented By: CHAUNCEY Albuterol/Ipratropium (Albuterol/Iprat 2.5/0.5mg 3 Ml Ampul.Neb) 3 ml INHALE Q6H PRN PRN Reason: shortness of breath, wheezing Last Admin: 11/06/22 05:04 Dose: 3 ml Documented By: CHICHI Artificial Tears (Artificial Tears 15 Ml Drops) 1 drop EYE-BOTH BID [facility] Last Admin: 11/06/22 11:54 Dose: 1 drop Documented By: SPARKLE Atorvastatin Calcium (Atorvastatin Calcium 10 Mg Tablet) 10 mg PO BEDTIME [facility] Last Admin: 11/05/22 21:37 Dose: 10 mg Documented By: ROCHELLE Bisacodyl (Bisacodyl 10 Mg Supp.Rect) 10 mg VT DAILY PRN PRN Reason: Constipation Bumetanide (Bumetanide 1 Mg/4 Ml Vial) 2 mg IVPUSH BID@0900,1700 [facility]; Protocol Last Admin: 11/06/22 10:02 Dose: 2 mg Documented By: SPARKLE Dextrose (Dextrose 50 % 25 Gm/50 Ml Syringe) 25 gm IVPUSH Q15M PRN; Protocol PRN Reason: per Hypoglycemia Standing Ord. Docusate Sodium (Docusate Sodium 100 Mg Capsule) 100 mg PO DAILY PRN PRN Reason: Constipation Glucose (Glucose Gel 15 Gm Gel..Gram.) 15 gm PO Q15M PRN; Protocol PRN Reason: per Hypoglycemia Standing Ord. Heparin Sodium (Porcine) (Heparin Sodium,Porcine 5,000 Unit/Ml Vial) 5,000 unit SUBCUT Q8H [facility] Last Admin: 11/06/22 10:03 Dose: 5,000 unit Documented By: SPARKLE Meropenem 500 mg/ Sodium (Chloride) 50 mls @ 100 mls/hr IV Q12H [facility] Stop: 11/06/22 19:59 Last Infusion: 11/06/22 11:45 Dose: 0 mls/hr Documented By: SPARKLE Insulin Glargine (Insulin Glargine,Hum.Rec.Anlog 100 Unit/Ml 10 Ml Vial) 10 unit SUBCUT BID [facility] Last Admin: 11/06/22 09:58 Dose: 10 unit Documented By: SPARKLE Insulin Human Lispro (Insulin Lispro 100 Unit/Ml 3 Ml Vial) 0 unit SUBCUT QIDACHS [facility]; Protocol Last Admin: 11/06/22 12:14 Dose: 1 unit Documented By: SPARKLE Latanoprost (Latanoprost 0.005 % Ophth Mona 2.5 Ml Drops) 1 drop EYE-BOTH BEDTIME [facility] Last Admin: 11/05/22 21:53 Dose: 1 drop Documented By: ROCHELLE Levothyroxine Sodium (Levothyroxine Sodium 175 Mcg Tablet) 175 mcg PO DAILY@0600 [facility] Last Admin: 11/06/22 05:30 Dose: 175 mcg Documented By: ROCHELLE Magnesium Oxide (Magnesium Oxide 400 Mg Tablet) 200 mg PO DAILY [facility] Last Admin: 11/06/22 09:58 Dose: 200 mg Documented By: SPARKLE Melatonin (Melatonin 3 Mg Tablet) 6 mg PO BEDTIME [facility] Last Admin: 11/05/22 21:37 Dose: 6 mg Documented By: ROCHELLE Pt Own ([Calquence ( Acalabrutinib Mal)] 100 Mg Tab 100 mg PO BID [facility] Last Admin: 11/06/22 10:02 Dose: 100 mg Documented By: SPARKLE Non-Formulary Medication (Brinzolamide-Brimonidine [Simbrinza]) 1 drop EYE-RIGHT BID [facility] Nystatin (Nystatin Powder 15 Gm Bottle) 1 appl TOPICAL BID [facility]; Protocol Last Admin: 11/06/22 11:57 Dose: 1 appl Documented By: SPARKLE Pharmacy Consult (Consult Rx Perform Med Rec) 1 each MISCELLANE ONCE PRN PRN Reason: Consult order Polyethylene Glycol (Polyethylene Glycol 3350 17 Gm Powd.Pack) 17 gm PO BID [facility] Last Admin: 11/06/22 10:18 Dose: Not Given Documented By: SPARKLE Non-Admin Reason: Patient Refused Prednisolone Acetate (Prednisolone Acetate 1 % Oph Susp 5 Ml Drpbtl) 1 drop EYE-RIGHT DAILY [facility] Last Admin: 11/06/22 11:54 Dose: 1 drop Documented By: SPARKLE Prednisone (Prednisone 5 Mg Tablet) 15 mg PO DAILY [facility] Last Admin: 11/06/22 10:01 Dose: 15 mg Documented By: SPARKLE Senna (Sennosides 8.6 Mg Tablet) 17.2 mg PO DAILY PRN PRN Reason: Constipation Sodium Chloride (0.9 % Sodium Chloride Flush 3 Ml Syringe) 3 ml IVFLUSH QSHIFT [facility] Last Admin: 11/06/22 10:04 Dose: 3 ml Documented By: SPARKLE Timolol Maleate (Timolol Maleate 0.5 % Oph Mona 5 Ml Drbtl) 1 drop EYE-RIGHT BID [facility] Last Admin: 11/06/22 10:03 Dose: 1 drop Documented By: SPARKLE Labs 11/06/22 06:02 11/06/22 06:10 Labs: Laboratory Results - last 24 hr 11/05/22 11/05/22 11/06/22 15:32 20:23 06:02 MCV 82.6 MCH 25.1 L MCHC 30.3 L RDW 16.4 H Plt Count 184 MPV 12.5 H Absolute Nucleated RBC 0.000 Nucleated RBC % (auto) 0.0 Anion Gap Estim Creat Clear Calc Estimated GFR POC Glucose 329 H 388 H* Random Glucose Calcium 08/05/23 08/05/23 08/05/23 06:10 07:41 11:51 MCV MCH MCHC RDW Plt Count MPV Absolute Nucleated RBC Nucleated RBC % (auto) Anion Gap 16 Estim Creat Clear Calc 33.3 Estimated GFR 23 POC Glucose 125 H 184 H Random Glucose 131 H Calcium 9.0 Microbiology Microbiology Results: Microbiology 10/31/22 09:09 Blood Culture - Final Blood - Venous No growth after 5 days. 10/31/22 09:13 Blood Culture - Final Blood - Venous No growth after 5 days. Assessment and Plan (1) Heart block AV second degree: Status: Acute (2) Pyelonephritis: Status: Acute Plan This is a 72-year-old female with past medical history of CHF, CLL, COPD, comes into the hospital with complaints of shortness of breath found to have CHF exacerbation, LEO, and hyperkalemia.?She was found to have UTI with ESBL E coli sensitive to meropenem.? Developed worsening acute on chronic renal failure with oliguria requiring temporary dialysis catheter and dialysis treatments in ICU? ICU step down patient discussed with Dr. Tesfaye.? She did require respiratory support with bipap but has been weaned. Has LATONYA diagnosed by no apneic episodes reported by spectrograph operator. While in ICU developed hyperkalemia and uremia and secondarily bradycardia with Wenckebach.? As creatinine has improved, Wenckebach has resolved with very occasional dropped QRS is noted.? Bradycardia has also resolved.? Vitals are now stable and dialysis catheter has been removed.? [place] [facility] [place] mer[place]. Acute pyelonephritis with left hydronephrosis urine culture ESBL e.coli , on meropenem started on 10/28, plan to complete 10 day course of antibiotics, end date 11/06 nephro rec placing a stent for hydro, urology will place 11/08/22 acute diastolic CHF exacerbation echo showed normal EF, Impaired diastolic function, inferior vena cava severely dilated and does not collapse with inspiration suggestive of right heart strain s/p diuresis and dialysis in ICU continue IV bumex 2mg IV BID chronic hypoxic respiratory failure currently on room air patient with history of obstructive sleep apnea currently not on CPAP Mobitz 1 second degree heart block HR initially in 30s/40s improved to 80s/90s with treatment of LEO/CHF metoprolol on hold s/p dopamine LEO on CKD 3 multifactorial due to cardiorenal syndrome, ATN, obstructive uropathy Status post temporary dialysis catheter and dialysis while in ICU. Dialysis catheter subsequently removed and renal function improving, but not quite back to baseline Nephrology following acute on chronic normocytic anemia r/t acute illness. no evidence of acute blood loss H/H stable hyperkalemia resolved COPD no acute exacerbation continue home inhalers on chronic prednisone - continue home dose diabetes continue lantus januvia on hold follow POCs, SSI, ADA diet hypothyroidism continue levothyroxine h/o CLL outpatient follow up morbid obesity recommend low-calorie diet. DVT prophylaxis:? Heparin subQ attending - dr. Toribio dispo: pt rec home with 25/10 care and herman vs LTC requires ongoing inpatient stay for IV abx and safe dispo Time Spent With Patient Time: Total time managing care of this patient today ____ minutes. Quality Stroke Does the patient have a stroke diagnosis?: No VTE Prior VTE?: No VTE Risk Level:: Medical - moderate - high VTE Device Contraindication: Treatment Not Indicated VTE Drug Contraindication: N/A - Med Ordered
--- NOTE | 2022-11-06 15:36 | P.PNNP_ITS ---
Subjective Subjective Date of Service: 11/06/22 Principal diagnosis: Acute kidney injury, bradycardia, decompensated heart failure. Interval history: diuresed with improving breathing Physical Exam Vital Signs: Vital Signs: Last Vital Signs Temp 96.1 F L 11/06/22 11:48 Pulse 70 11/06/22 11:48 Resp 17 11/06/22 11:48 BP 149/65 H 11/06/22 11:48 Pulse Ox 95 11/06/22 11:48 O2 Del Method Room Air 11/06/22 11:48 O2 Flow Rate 97 11/05/22 03:24 FiO2 28 11/02/22 07:50 Oxygen Flow Rate 4 10/27/22 20:01 BMI result Body Mass Index 46.0 Const: Other: Gen: awake alert x3 ,no acute resp.distress HEENT: sclera anicteric, moist mucus membranes Neck: supple, no?JVD Lungs: diminished breath sounds,few wheeze,? no tachypnea, no crackles Heart: regular?rate and rhythm,no murmurs Abd: soft, obese,non-tender, bowel sounds audible,ecchmosis Ext: discoloration both legs,?Rt leg worsening swelling ,non?pitting edema,no tenderness no change in discoloration , left upper arm infiltration around IV Right dorsum of hand swollen,good radial pulse. Skin:? multiple areas of ecchymosis, Neuro: alert and oriented x3, no focal findings Psych: appropriate affect General: cooperative, healthy appearing, comfortable, no acute distress, alert, awake, in distress mild and respiratory, ill appearing, lethargic and tired appearing Orientation/consciousness: lethargic Objective Data Labs 11/06/22 06:02 11/06/22 06:10 Labs: Laboratory Results - last 24 hr 11/05/22 11/05/22 11/06/22 15:32 20:23 06:02 WBC 13.9 H RBC 3.51 L Hgb 8.8 L Hct 29.0 L MCV 82.6 MCH 25.1 L MCHC 30.3 L RDW 16.4 H Plt Count 184 MPV 12.5 H Absolute Nucleated RBC 0.000 Nucleated RBC % (auto) 0.0 Sodium Potassium Chloride Carbon Dioxide Anion Gap BUN Creatinine Estim Creat Clear Calc Estimated GFR POC Glucose 329 H 388 H* Random Glucose Calcium 0811/06/22 11/06/22 06:10 07:41 11:51 WBC RBC Hgb Hct MCV MCH MCHC RDW Plt Count MPV Absolute Nucleated RBC Nucleated RBC % (auto) Sodium 140 Potassium 4.4 D Chloride 106 Carbon Dioxide 22 Anion Gap 16 BUN 56 H Creatinine 2.13 H Estim Creat Clear Calc 33.3 Estimated GFR 23 POC Glucose 125 H 184 H Random Glucose 131 H Calcium 9.0 Microbiology Microbiology Results: Microbiology 10/31/22 09:09 Blood - Venous Blood Culture - Final No growth after 5 days. 10/31/22 09:13 Blood - Venous Blood Culture - Final No growth after 5 days. 10/28/22 Unknown Urine clean catch - Urine malik top Urine Culture - Final Escherichia coli Procedures Date of Service Date of Service: 11/06/22 Assessment & Plan Assessment and plan (1) Heart block AV second degree: Status: Acute (2) Pyelonephritis: Status: Acute Plan Ms. Cindy Carbajal is a 72-year-old female with past medical history of CHF, CLL, COPD, comes into the hospital with complaints of shortness of breath found to have CHF exacerbation, LEO, and hyperkalemia.?She was found to have UTI with ESBL E coli sensitive to meropenem.? This is in the setting of Left ureteral stone and hydro. She developed worsening acute on chronic renal failure with oliguria requiring temporary dialysis catheter and dialysis treatments in ICU. While in ICU developed hyperkalemia and uremia and secondarily bradycardia with Wenckebach.?She is now off HD, with improved Cr, and transferred to [facility] [place] to complete course of meropenem. 1. LEO BL Cr 1.0mg/dL Cr peak 4.6mg/dL Anuric hyperkalemic renal failure s/p intermittent iHD now with renal recovery LEO 2/2 obstructive uropathy and septic ATN and nephrosarca. Plan: - Left ureteral stent needs attention It is the culprit for urosepsis - Unilateral hydro may not worsen GFR but will risk unilateral nephron loss - Appreciate Urology recs - tomorrow convert to PO bumex 2mg BID - gibson for UOP monitoring - meropenem. Time Spent With Patient Time: Total time managing care of this patient today ____ minutes. Progress Note: Quality Stroke Does the patient have a stroke diagnosis?: No
[2022-11-06 15:52] VITALS: BP 179/72; PULSE 72; RESP 17; TEMP 36.1; O2SAT 98
[2022-11-06 16:28] LABS: Glucose, Whole Blood 260 mg/dL (60-115)
[2022-11-06 20:00] VITALS: BP 187/80; PULSE 75; RESP 21; TEMP 36.2; O2SAT 99
[2022-11-06 20:47] LABS: Glucose, Whole Blood 244 mg/dL (60-115)
[2022-11-06] MEDS: polyethylene glycoL 3350 17 GM POWD.PACK PO (22:06)
[2022-11-06] MEDS: Melatonin 3 MG TABLET 6 MG PO (22:08)
[2022-11-06] MEDS: Atorvastatin Calcium 10 MG TABLET PO (22:09)
[2022-11-06] MEDS: Latanoprost 0.005 % Ophth Sol 2.5 ML DROPS 1 DROP EYE-BOTH (22:10)
[2022-11-07] VITALS (7 sets, daily range): BP systolic 139–172; BP diastolic 61–77; PULSE 65–79; RESP 14–20; TEMP 35.3–37.1; O2SAT 95–100; BMI 45.5
[2022-11-07] MEDS: Heparin Sodium,Porcine 5,000 UNIT/ML VIAL 5000 UNIT SUBCUT ×3 (03:34→17:08)
[2022-11-07] MEDS: Levothyroxine Sodium 175 MCG TABLET PO (06:21)
[2022-11-07 07:35] LABS: Glucose, Whole Blood 154 mg/dL (60-115)
[2022-11-07] MEDS: Magnesium Oxide 400 MG TABLET 200 MG PO (08:38)
[2022-11-07] MEDS: Insulin Lispro 100 UNIT/ML 3 ML VIAL SUBCUT ×4 (08:39→20:57)
[2022-11-07] MEDS: Artificial Tears 15 ML DROPS 1 DROP EYE-BOTH ×2 (08:40→20:57)
[2022-11-07] MEDS: timoloL maleate 0.5 % Oph Sol 5 ML DRBTL 1 DROP EYE-RIGHT ×2 (08:40→20:57)
[2022-11-07] MEDS: Bumetanide 1 MG/4 ML VIAL 2 MG IVPUSH ×2 (08:40→17:08)
[2022-11-07] MEDS: Insulin Glargine,Hum.rec.anlog 100 UNIT/ML 10 ML VIAL 10 UNIT SUBCUT ×2 (08:40→20:57)
[2022-11-07] MEDS: 0.9 % Sodium Chloride Flush 3 ML SYRINGE IVFLUSH ×2 (08:41→17:09)
[2022-11-07] MEDS: Nystatin Powder 15 GM BOTTLE 1 APPL TOPICAL ×2 (08:43→20:58)
[2022-11-07] MEDS: predniSONE 5 MG TABLET 15 MG PO (08:52)
--- NOTE | 2022-11-07 10:33 | P.PNIM_ITS ---
Subjective Subjective Date of Service: 11/07/22 Interval History: seen and examined this morning follow up for CHF, renal failure Breathing is better Review of Systems Review of Systems: Yes all other systems are reviewed and are negative Constitutional Constitutional: Denies chills and Denies fever(s) Cardiovascular Cardiovascular: Denies chest pain, Denies palpitations and Reports dyspnea Respiratory Respiratory: Denies cough and Reports dyspnea Gastrointestinal Gastrointestinal: Denies abdominal pain Endocrine Endocrine: Denies palpitations Physical Exam Vital Signs: Vital Signs: Last Vital Signs Temp 95.5 F L 11/07/22 08:00 Pulse 79 11/07/22 08:00 Resp 18 11/07/22 08:00 BP 139/63 11/07/22 08:00 Pulse Ox 100 11/07/22 08:00 O2 Del Method Room Air 11/07/22 08:00 O2 Flow Rate 97 11/05/22 03:24 FiO2 28 11/02/22 07:50 Oxygen Flow Rate 4 10/27/22 20:01 BMI result Body Mass Index 45.5 Appearing in no acute distres lung sounds are clear to auscultation heart regular rate rhythm, clear S1, S2 positive bowel sounds, abdomen is soft, nontender neuro patient is alert x3, no focal deficits Objective Data Active Medications Acetaminophen (Acetaminophen 325 Mg Tablet) 650 mg PO Q6H PRN PRN Reason: Pain, Mild (Pain Scale 1-3) Last Admin: 11/03/22 09:27 Dose: 650 mg Documented By: CHAUNCEY Albuterol/Ipratropium (Albuterol/Iprat 2.5/0.5mg 3 Ml Ampul.Neb) 3 ml INHALE Q6H PRN PRN Reason: shortness of breath, wheezing Last Admin: 11/06/22 17:19 Dose: 3 ml Documented By: SPARKLE Artificial Tears (Artificial Tears 15 Ml Drops) 1 drop EYE-BOTH BID [facility] Last Admin: 11/07/22 08:40 Dose: 1 drop Documented By: SPARKLE Atorvastatin Calcium (Atorvastatin Calcium 10 Mg Tablet) 10 mg PO BEDTIME [facility] Last Admin: 11/06/22 22:09 Dose: 10 mg Documented By: PIA Bisacodyl (Bisacodyl 10 Mg Supp.Rect) 10 mg [place] DAILY PRN PRN Reason: Constipation Bumetanide (Bumetanide 1 Mg/4 Ml Vial) 2 mg IVPUSH BID@0900,1700 [facility]; Protocol Last Admin: 11/07/22 08:40 Dose: 2 mg Documented By: SPARKLE Dextrose (Dextrose 50 % 25 Gm/50 Ml Syringe) 25 gm IVPUSH Q15M PRN; Protocol PRN Reason: per Hypoglycemia Standing Ord. Docusate Sodium (Docusate Sodium 100 Mg Capsule) 100 mg PO DAILY PRN PRN Reason: Constipation Glucose (Glucose Gel 15 Gm Gel..Gram.) 15 gm PO Q15M PRN; Protocol PRN Reason: per Hypoglycemia Standing Ord. Heparin Sodium (Porcine) (Heparin Sodium,Porcine 5,000 Unit/Ml Vial) 5,000 unit SUBCUT Q8H [facility] Last Admin: 11/07/22 03:34 Dose: 5,000 unit Documented By: PIA Comments: clarified re bruising with Dr. Hand Insulin Glargine (Insulin Glargine,Hum.Rec.Anlog 100 Unit/Ml 10 Ml Vial) 10 unit SUBCUT BID [facility] Last Admin: 11/07/22 08:40 Dose: 10 unit Documented By: SPARKLE Insulin Human Lispro (Insulin Lispro 100 Unit/Ml 3 Ml Vial) 0 unit SUBCUT QIDACHS [facility]; Protocol Last Admin: 11/07/22 08:39 Dose: 2 unit Documented By: SPARKLE Latanoprost (Latanoprost 0.005 % Ophth Mona 2.5 Ml Drops) 1 drop EYE-BOTH BEDTIME [facility] Last Admin: 11/06/22 22:10 Dose: 1 drop Documented By: PIA Levothyroxine Sodium (Levothyroxine Sodium 175 Mcg Tablet) 175 mcg PO DAILY@0600 [facility] Last Admin: 11/07/22 06:21 Dose: 175 mcg Documented By: PIA Magnesium Oxide (Magnesium Oxide 400 Mg Tablet) 200 mg PO DAILY [facility] Last Admin: 11/07/22 08:38 Dose: 200 mg Documented By: SPARKLE Melatonin (Melatonin 3 Mg Tablet) 6 mg PO BEDTIME [facility] Last Admin: 11/06/22 22:08 Dose: 6 mg Documented By: PIA Pt Own ([Calquence ( Acalabrutinib Mal)] 100 Mg Tab 100 mg PO BID [facility] Last Admin: 11/07/22 08:39 Dose: 100 mg Documented By: SPARKLE Non-Formulary Medication (Brinzolamide-Brimonidine [Simbrinza]) 1 drop EYE- RIGHT BID [facility] Nystatin (Nystatin Powder 15 Gm Bottle) 1 appl TOPICAL BID [facility]; Protocol Last Admin: 11/07/22 08:43 Dose: 1 appl Documented By: SPARKLE Pharmacy Consult (Consult Rx Perform Med Rec) 1 each MISCELLANE ONCE PRN PRN Reason: Consult order Polyethylene Glycol (Polyethylene Glycol 3350 17 Gm Powd.Pack) 17 gm PO BID [facility] Last Admin: 11/07/22 08:52 Dose: Not Given Documented By: SPARKLE Non-Admin Reason: Patient Refused Prednisolone Acetate (Prednisolone Acetate 1 % Oph Susp 5 Ml Drpbtl) 1 drop EYE-RIGHT DAILY [facility] Last Admin: 11/06/22 11:54 Dose: 1 drop Documented By: SPARKLE Prednisone (Prednisone 5 Mg Tablet) 15 mg PO DAILY [facility] Last Admin: 11/07/22 08:52 Dose: 15 mg Documented By: SPARKLE Senna (Sennosides 8.6 Mg Tablet) 17.2 mg PO DAILY PRN PRN Reason: Constipation Sodium Chloride (0.9 % Sodium Chloride Flush 3 Ml Syringe) 3 ml IVFLUSH QSHIFT [facility] Last Admin: 11/07/22 08:41 Dose: 3 ml Documented By: SPARKLE Timolol Maleate (Timolol Maleate 0.5 % Oph Mona 5 Ml Drbtl) 1 drop EYE-RIGHT BID [facility] Last Admin: 11/07/22 08:40 Dose: 1 drop Documented By: SPARKLE Labs 11/06/22 06:02 11/06/22 06:10 Labs: Laboratory Results - last 24 hr 11/06/22 11/06/22 11/06/22 11:51 16:22 20:39 POC Glucose 184 H 260 H 244 H 11/07/22 07:23 POC Glucose 154 H Assessment and Plan (1) Heart block AV second degree: Status: Acute (2) Pyelonephritis: Status: Acute Plan This is a 72-year-old female with past medical history of CHF, CLL, COPD, comes into the hospital with complaints of shortness of breath found to have CHF exacerbation, LEO, and hyperkalemia.?She was found to have UTI with ESBL E coli sensitive to meropenem.? Developed worsening acute on chronic renal failure with oliguria requiring temporary dialysis catheter and dialysis treatments in ICU? ICU step down patient discussed with Dr. Tesfaye.? She did require respiratory support with bipap but has been weaned. Has LATONYA diagnosed by no apneic episodes reported by anthropology lecturer. While in ICU developed hyperkalemia and uremia and secondarily bradycardia with Wenckebach.? As creatinine has improved, Wenckebach has resolved with very occasional dropped QRS is noted.? Bradycardia has also resolved.? Vitals are now stable and dialysis catheter has been removed.? She is being transferred to [facility] [place] to complete course of meropenem. Acute pyelonephritis with left hydronephrosis urine culture ESBL e.coli , on meropenem started on 10/28, plan to complete 10 day course of antibiotics, end date 11/06 nephro rec placing a stent for hydro, urology will place 11/08/22 acute diastolic CHF exacerbation echo showed normal EF, Impaired diastolic function, inferior vena cava severely dilated and does not collapse with inspiration suggestive of right heart strain s/p diuresis and dialysis in ICU continue IV bumex 2mg IV BID chronic hypoxic respiratory failure currently on room air patient with history of obstructive sleep apnea currently not on CPAP Mobitz 1 second degree heart block HR initially in 30s/40s improved to 80s/90s with treatment of LEO/CHF metoprolol on hold s/p dopamine LEO on CKD 3 multifactorial due to cardiorenal syndrome, ATN, obstructive uropathy Status post temporary dialysis catheter and dialysis while in ICU. Dialysis catheter subsequently removed and renal function improving, but not quite back to baseline Nephrology following acute on chronic normocytic anemia r/t acute illness. no evidence of acute blood loss H/H stable hyperkalemia resolved COPD no acute exacerbation continue home inhalers on chronic prednisone - continue home dose diabetes continue lantus januvia on hold follow POCs, SSI, ADA diet hypothyroidism continue levothyroxine h/o CLL outpatient follow up morbid obesity recommend low-calorie diet. DVT prophylaxis:? Heparin subQ attending - dr. Toribio dispo: pt rec home with 25/10 care and [facility]man vs LTC requires ongoing inpatient stay for IV abx and safe dispo Time Spent With Patient Time: Total time managing care of this patient today ____ minutes. Quality Stroke Does the patient have a stroke diagnosis?: No VTE Prior VTE?: No VTE Risk Level:: Medical - moderate - high VTE Device Contraindication: Treatment Not Indicated VTE Drug Contraindication: N/A - Med Ordered
[2022-11-07 11:47] LABS: Glucose, Whole Blood 239 mg/dL (60-115)
--- NOTE | 2022-11-07 12:16 | PM.PNNEP ---
Subjective Subjective Date of Service: 11/07/22 Principal diagnosis: Acute kidney injury, bradycardia, decompensated heart failure. Interval history: doing well. Physical Exam Vital Signs: Vital Signs: Last Vital Signs Temp 98.0 F 11/07/22 12:00 Pulse 69 11/07/22 12:00 Resp 17 11/07/22 12:00 BP 144/75 H 11/07/22 12:00 Pulse Ox 100 11/07/22 12:00 O2 Del Method Room Air 11/07/22 12:00 O2 Flow Rate 97 11/05/22 03:24 FiO2 28 11/02/22 07:50 Oxygen Flow Rate 4 10/27/22 20:01 BMI result Body Mass Index 45.5 Const: Other: Gen: awake alert x3 ,no acute resp.distress HEENT: sclera anicteric, moist mucus membranes Neck: supple, no?JVD Lungs: diminished breath sounds,few wheeze,? no tachypnea, no crackles Heart: regular?rate and rhythm,no murmurs Abd: soft, obese,non-tender, bowel sounds audible,ecchmosis Ext: discoloration both legs,?Rt leg worsening swelling ,non?pitting edema,no tenderness no change in discoloration , left upper arm infiltration around IV Right dorsum of hand swollen,good radial pulse. Skin:? multiple areas of ecchymosis, Neuro: alert and oriented x3, no focal findings Psych: appropriate affect Objective Data Labs 11/06/22 06:02 11/06/22 06:10 Labs: Laboratory Results - last 24 hr 11/06/22 11/06/22 11/07/22 16:22 20:39 07: POC Glucose 260 H 244 H 154 H 11/07/22 11:38 POC Glucose 239 H Microbiology Microbiology Results: Microbiology 10/31/22 09:09 Blood - Venous Blood Culture - Final No growth after 5 days. 10/31/22 09:13 Blood - Venous Blood Culture - Final No growth after 5 days. 10/28/22 Unknown Urine clean catch - Urine malik top Urine Culture - Final Escherichia coli Procedures Date of Service Date of Service: 11/07/22 Assessment & Plan Assessment and plan (1) Heart block AV second degree: Status: Acute (2) Pyelonephritis: Status: Acute Plan Ms. Cindy Carbajal is a 72-year-old female with past medical history of CHF, CLL, COPD, comes into the hospital with complaints of shortness of breath found to have CHF exacerbation, LEO, and hyperkalemia.?She was found to have UTI with ESBL E coli sensitive to meropenem.? This is in the setting of Left ureteral stone and hydro. She developed worsening acute on chronic renal failure with oliguria requiring temporary dialysis catheter and dialysis treatments in ICU. While in ICU developed hyperkalemia and uremia and secondarily bradycardia with Wenckebach.?She is now off HD, with improved Cr, and transferred to [facility] [place] to complete course of meropenem. 1. LEO BL Cr 1.0mg/dL Cr peak 4.6mg/dL Anuric hyperkalemic renal failure s/p intermittent iHD now with renal recovery LEO 2/2 obstructive uropathy and septic ATN and nephrosarca. Plan: - Left ureteral stent needs attention It is the culprit for urosepsis - Unilateral hydro may not worsen GFR but will risk unilateral nephron loss - Appreciate Urology recs - convert to PO bumex 2mg BID - gibson for UOP monitoring - draw labs for today. Time Spent With Patient Time: Total time managing care of this patient today ____ minutes. Progress Note: Quality Stroke Does the patient have a stroke diagnosis?: No
[2022-11-07 16:41] LABS: Glucose, Whole Blood 281 mg/dL (60-115)
[2022-11-07 20:42] LABS: Glucose, Whole Blood 277 mg/dL (60-115)
[2022-11-07] MEDS: Melatonin 3 MG TABLET 6 MG PO (20:56)
[2022-11-07] MEDS: Atorvastatin Calcium 10 MG TABLET PO (20:56)
[2022-11-07] MEDS: Latanoprost 0.005 % Ophth Sol 2.5 ML DROPS 1 DROP EYE-BOTH (20:57)
[2022-11-08] VITALS (11 sets, daily range): BP systolic 133–168; BP diastolic 49–63; PULSE 52–82; RESP 12–20; TEMP 36–36.7; O2SAT 94–100; BMI 43.9
[2022-11-08] MEDS: Levothyroxine Sodium 175 MCG TABLET PO (06:01)
[2022-11-08 08:01] LABS: Glucose, Whole Blood 110 mg/dL (60-115)
[2022-11-08] MEDS: 0.9 % Sodium Chloride Flush 3 ML SYRINGE IVFLUSH ×2 (09:03→15:34)
[2022-11-08] MEDS: Magnesium Oxide 400 MG TABLET 200 MG PO (09:03)
[2022-11-08] MEDS: predniSONE 5 MG TABLET 15 MG PO (09:04)
[2022-11-08] MEDS: polyethylene glycoL 3350 17 GM POWD.PACK PO ×2 (09:04→23:04)
[2022-11-08] MEDS: Nystatin Powder 15 GM BOTTLE 1 APPL TOPICAL ×2 (09:07→23:08)
[2022-11-08] MEDS: Bumetanide 1 MG/4 ML VIAL 2 MG IVPUSH (09:08)
[2022-11-08] MEDS: Artificial Tears 15 ML DROPS 1 DROP EYE-BOTH ×2 (09:08→23:07)
[2022-11-08] MEDS: prednisoLONE Acetate 1 % Oph Susp 5 ML DRPBTL 1 DROP EYE-RIGHT (09:09)
[2022-11-08] MEDS: timoloL maleate 0.5 % Oph Sol 5 ML DRBTL 1 DROP EYE-RIGHT ×2 (09:18→23:04)
--- NOTE | 2022-11-08 09:49 | P.PNIM_ITS ---
Subjective Subjective Date of Service: 11/08/22 Interval History: seen and examined this morning follow up for CHF, renal failure Breathing is better Review of Systems Review of Systems: Yes all other systems are reviewed and are negative Constitutional Constitutional: Denies chills and Denies fever(s) Cardiovascular Cardiovascular: Denies chest pain, Denies palpitations and Reports dyspnea Respiratory Respiratory: Denies cough and Reports dyspnea Gastrointestinal Gastrointestinal: Denies abdominal pain Endocrine Endocrine: Denies palpitations Physical Exam Vital Signs: Vital Signs: Last Vital Signs Temp 96.8 F 11/08/22 07:43 Pulse 69 11/08/22 07:43 Resp 20 11/08/22 07:43 BP 133/63 11/08/22 07:43 Pulse Ox 99 11/08/22 07:43 O2 Del Method Room Air 11/08/22 07:43 O2 Flow Rate 97 11/05/22 03:24 FiO2 28 11/02/22 07:50 Oxygen Flow Rate 4 10/27/22 20:01 BMI result Body Mass Index 43.9 Appearing in no acute distress lung sounds are clear to auscultation heart regular rate rhythm, clear S1, S2 positive bowel sounds, abdomen is soft, nontender neuro patient is alert x3, no focal deficits Objective Data Active Medications Acetaminophen (Acetaminophen 325 Mg Tablet) 650 mg PO Q6H PRN PRN Reason: Pain, Mild (Pain Scale 1-3) Last Admin: 11/03/22 09:27 Dose: 650 mg Documented By: CHAUNCEY Albuterol/Ipratropium (Albuterol/Iprat 2.5/0.5mg 3 Ml Ampul.Neb) 3 ml INHALE Q6H PRN PRN Reason: shortness of breath, wheezing Last Admin: 11/06/22 17:19 Dose: 3 ml Documented By: SPARKLE Artificial Tears (Artificial Tears 15 Ml Drops) 1 drop EYE-BOTH BID [facility] Last Admin: 11/08/22 09:08 Dose: 1 drop Documented By: CHAUNCEY Atorvastatin Calcium (Atorvastatin Calcium 10 Mg Tablet) 10 mg PO BEDTIME [facility] Last Admin: 11/07/22 20:56 Dose: 10 mg Documented By: DOBROB Bisacodyl (Bisacodyl 10 Mg Supp.Rect) 10 mg [place] DAILY PRN PRN Reason: Constipation Bumetanide (Bumetanide 1 Mg/4 Ml Vial) 2 mg IVPUSH BID@0900,1700 [facility]; Protocol Last Admin: 11/08/22 09:08 Dose: 2 mg Documented By: CHAUNCEY Dextrose (Dextrose 50 % 25 Gm/50 Ml Syringe) 25 gm IVPUSH Q15M PRN; Protocol PRN Reason: per Hypoglycemia Standing Ord. Docusate Sodium (Docusate Sodium 100 Mg Capsule) 100 mg PO DAILY PRN PRN Reason: Constipation Glucose (Glucose Gel 15 Gm Gel..Gram.) 15 gm PO Q15M PRN; Protocol PRN Reason: per Hypoglycemia Standing Ord. Heparin Sodium (Porcine) (Heparin Sodium,Porcine 5,000 Unit/Ml Vial) 5,000 unit SUBCUT Q8H [facility] Last Admin: 11/08/22 09:17 Dose: Not Given Documented By: CHAUNCEY Non-Admin Reason: going to [place] Insulin Glargine (Insulin Glargine,Hum.Rec.Anlog 100 Unit/Ml 10 Ml Vial) 10 unit SUBCUT BID [facility] Last Admin: 11/08/22 09:19 Dose: Not Given Documented By: CHAUNCEY Non-Admin Reason: NPO Insulin Human Lispro (Insulin Lispro 100 Unit/Ml 3 Ml Vial) 0 unit SUBCUT QIDACHS [facility]; Protocol Last Admin: 11/08/22 08:21 Dose: Not Given Documented By: CHAUNCEY Non-Malvin Reason: No Insulin Coverage Latanoprost (Latanoprost 0.005 % Ophth Mona 2.5 Ml Drops) 1 drop EYE-BOTH BEDTIM E [facility] Last Admin: 11/07/22 20:57 Dose: 1 drop Documented By: RK Levothyroxine Sodium (Levothyroxine Sodium 175 Mcg Tablet) 175 mcg PO DAILY@0600 [facility] Last Admin: 11/08/22 06:01 Dose: 175 mcg Documented By: RK Magnesium Oxide (Magnesium Oxide 400 Mg Tablet) 200 mg PO DAILY [facility] Last Admin: 11/08/22 09:03 Dose: 200 mg Documented By: CHAUNCEY Melatonin (Melatonin 3 Mg Tablet) 6 mg PO BEDTIME [facility] Last Admin: 11/07/22 20:56 Dose: 6 mg Documented By: RK Pt Own ([Calquence ( Acalabrutinib Mal)] 100 Mg Tab 100 mg PO BID [facility] Last Admin: 11/08/22 09:03 Dose: 100 mg Documented By: CHAUNCEY Non-Formulary Medication (Brinzolamide-Brimonidine [Simbrinza]) 1 drop EYE- RIGHT BID [facility] Nystatin (Nystatin Powder 15 Gm Bottle) 1 appl TOPICAL BID [facility]; Protocol Last Admin: 11/08/22 09:07 Dose: 1 appl Documented By: CHAUNCEY Pharmacy Consult (Consult Rx Perform Med Rec) 1 each MISCELLANE ONCE PRN PRN Reason: Consult order Polyethylene Glycol (Polyethylene Glycol 3350 17 Gm Powd.Pack) 17 gm PO BID [facility] Last Admin: 11/08/22 09:04 Dose: 17 gm Documented By: CHAUNCEY Prednisolone Acetate (Prednisolone Acetate 1 % Oph Susp 5 Ml Drpbtl) 1 drop EYE-RIGHT DAILY [facility] Last Admin: 11/08/22 09:09 Dose: 1 drop Documented By: CHAUNCEY Prednisone (Prednisone 5 Mg Tablet) 15 mg PO DAILY [facility] Last Admin: 11/08/22 09:04 Dose: 15 mg Documented By: CHAUNCEY Senna (Sennosides 8.6 Mg Tablet) 17.2 mg PO DAILY PRN PRN Reason: Constipation Sodium Chloride (0.9 % Sodium Chloride Flush 3 Ml Syringe) 3 ml IVFLUSH QSHIFT [facility] Last Admin: 11/08/22 09:03 Dose: 3 ml Documented By: CHAUNCEY Timolol Maleate (Timolol Maleate 0.5 % Oph Mona 5 Ml Drbtl) 1 drop EYE-RIGHT BID [facility] Last Admin: 11/08/22 09:18 Dose: 1 drop Documented By: CHAUNCEY Labs 11/06/22 06:02 11/06/22 06:10 Labs: Laboratory Results - last 24 hr 11/07/22 11/07/22 11/07/22 11:38 16:38 20:38 POC Glucose 239 H 281 H 277 H 11/08/22 07:53 POC Glucose 110 Assessment and Plan (1) Heart block AV second degree: Status: Acute (2) Pyelonephritis: Status: Acute Plan This is a 72-year-old female with past medical history of CHF, CLL, COPD, comes into the hospital with complaints of shortness of breath found to have CHF exacerbation, LEO, and hyperkalemia.?She was found to have UTI with ESBL E coli sensitive to meropenem.? Developed worsening acute on chronic renal failure with oliguria requiring temporary dialysis catheter and dialysis treatments in ICU? ICU step down patient discussed with Dr. Tesfaye.? She did require respiratory support with bipap but has been weaned. Has LATONYA diagnosed by no apneic episodes reported by dough cutting machine operator. While in ICU developed hyperkalemia and uremia and secondarily bradycardia with Wenckebach.? As creatinine has improved, Wenckebach has resolved with very occasional dropped QRS is noted.? Bradycardia has also resolved.? Vitals are now stable and dialysis catheter has been removed.? [place] [facility] of meropenem. Acute pyelonephritis with left hydronephrosis urine culture ESBL e.coli , on meropenem started on 10/28, plan to complete 10 day course of antibiotics, end date 11/06 plan for ureteral stent today acute diastolic CHF exacerbation. Resolved echo showed normal EF, Impaired diastolic function, inferior vena cava severely dilated and does not collapse with inspiration suggestive of right heart strain s/p diuresis and dialysis in ICU continue IV bumex 2mg IV BID chronic hypoxic respiratory failure currently on room air patient with history of obstructive sleep apnea currently not on CPAP Mobitz 1 second degree heart block HR initially in 30s/40s improved to 80s/90s with treatment of LEO/CHF metoprolol on hold s/p dopamine LEO on CKD 3 multifactorial due to cardiorenal syndrome, ATN, obstructive uropathy Status post temporary dialysis catheter and dialysis while in ICU. Dialysis catheter subsequently removed and renal function improving, but not quite back to baseline Nephrology following acute on chronic normocytic anemia r/t acute illness. no evidence of acute blood loss H/H stable hyperkalemia resolved COPD no acute exacerbation continue home inhalers on chronic prednisone - continue home dose diabetes continue lantus januvia on hold follow POCs, SSI, ADA diet hypothyroidism continue levothyroxine h/o CLL outpatient follow up morbid obesity recommend low-calorie diet. DVT prophylaxis:? Heparin subQ attending - dr. Dominguez dispo: Likely STR/LTC upon dc requires ongoing inpatient stay for IV abx and safe dispo Time Spent With Patient Time: Total time managing care of this patient today ____ minutes. Quality Stroke Does the patient have a stroke diagnosis?: No VTE Prior VTE?: No VTE Risk Level:: Medical - moderate - high VTE Device Contraindication: Treatment Not Indicated VTE Drug Contraindication: N/A - Med Ordered
--- NOTE | 2022-11-08 10:28 | PM.PNNEP ---
Subjective Subjective Date of Service: 11/09/22 Principal diagnosis: Acute kidney injury, bradycardia, decompensated heart failure. Interval history: seen and examined this morning follow up for CHF, renal failure Breathing is better Physical Exam Vital Signs: Vital Signs: Last Vital Signs Temp 96.8 F 11/08/22 07:43 Pulse 69 11/08/22 07:43 Resp 20 11/08/22 07:43 BP 133/63 11/08/22 07:43 Pulse Ox 99 11/08/22 07:43 O2 Del Method Room Air 11/08/22 07:43 O2 Flow Rate 97 11/05/22 03:24 FiO2 28 11/02/22 07:50 Oxygen Flow Rate 4 10/27/22 20:01 BMI result Body Mass Index 43.9 Const: General: alert and awake Neck: Neck: Yes supple Resp: Auscultation: diminished lung sounds Cardio: Rate: bradycardic Heart sounds: S1 normal heart sound present and S2 normal heart sound present GI: Palpation (GI): Soft to palpation and nontender Extrem: General: Yes pedal edema Objective Data Labs 11/06/22 06:02 11/06/22 06:10 Labs: Laboratory Results - last 24 hr 11/07/22 11/07/22 11/07/22 11:38 16:38 20:38 POC Glucose 239 H 281 H 277 H 11/08/22 07:53 POC Glucose 110 Microbiology Microbiology Results: Microbiology 10/31/22 09:09 Blood - Venous Blood Culture - Final No growth after 5 days. 10/31/22 09:13 Blood - Venous Blood Culture - Final No growth after 5 days. 10/28/22 Unknown Urine clean catch - Urine malik top Urine Culture - Final Escherichia coli Procedures Date of Service Date of Service: 11/09/22 Assessment & Plan Assessment and plan (1) LEO (acute kidney injury): Status: Acute (2) Hyperkalemia: Status: Acute (3) (HFpEF) heart failure with preserved ejection fraction: Status: Acute (4) CKD (chronic kidney disease) stage 3, GFR 30-59 ml/min: Status: Acute Plan multifactorial LEO: -congestive nephrosarca c/w cardio renal syndrome -acute tubular injury -obstructive uropathy CT scan showed mild left hydronephrosis per urology c/w ascending left pyelonephristis known CKD baseline Scr ~ 1.2 mg/dl h/o HFpEF REC renal function is improving. No need for further dialysis. Await Urology intervention Time Spent With Patient Time: Total time managing care of this patient today ____ minutes. Progress Note: Quality Stroke Does the patient have a stroke diagnosis?: No
--- NOTE | 2022-11-08 11:13 | MHC.CLN ---
F/U PT IS CURRENTLY NPO PREVIOUS PO INTAKE SLIGHTLY IMPROVED 50-75% WHEN DIET TO ADVANCE RECOMMEND RESUMING 2200DM 2GM NA-APPROPRIATE PT WITH FRAGILE SKIN -INCREASE PO PROTEIN INTAKE RD TO FOLLOW WEEKLY
[2022-11-08 11:50] LABS: Glucose, Whole Blood 183 mg/dL (60-115)
--- NOTE | 2022-11-08 13:59 | MHC.CM.PN ---
CM DISCUSSED CASE W/HOSPITALIST THAT PT WILL BE MEDICALLY CLEARED D/C AFTER STENT PLACEMENT, P.T. AND OT REC'S LTC VS 24HR CARE AT HOME AND THEREFORE NOT QUALIFYING FOR STR, CM CONTACTED PT'S NIECE [facility] [phone], NIA AT BEDSIDE AND CM MET W/PT, [facility]CE [facility] AND PT'S GDTR AT BEDSIDE, NIA REPORTS THEY WERE HAVING DIFFICULTY GETTING A LOCO LIFT AND BARIATRIC BED AND WERE TOLD PT DOES NOT MEET WEIGHT REQUIREMENT AND REQUESTED CM FOLLOW UP, NIA ALSO REPORTED THAT THEY ARE ALSO TRYING TO GET MORE CARE FOR PT SHE IS CURRENTLY BEING RECOMMENDED LTC VS 24HR CARE AND PT DOES NOT REALLY HAVE THAT CURRENTLY. CM DID CONTACT [facility] AND THEY ALSO REPORTED PT IS UNDERWEIGHT FOR A BARIATRIC HOSPITAL BED WHICH IS 350LBS AND THAT IS WHAT QUALIFIES PT FOR A BARIATRIC BED. FRESNO DID REPORT THE LOCO LIFT WAS ORDERED AND FAMILY WILL BE CALLED WHEN IT COMES IN FOR DELIVERY. CM CONTACTED DR MACKENZIE'S OFFICE AND SPOKE TO DAMARIS WHO REPORTS SHE WILL SEND REQUEST FOR DR MACKENZIE TO SEND A SCRIPT FOR A BARIATRIC BED OR TO DETERMINE IF THERE IS AN APPEAL PROCESS FOR A LARGER HOSPITAL BED. NIA AND PT BOTH AGREE THEY WOULD LIKE SENIOR LIVING CARE FOR PT FOR 1-2 MONTHS PRIOR TO RETURNING HOME, AGREEABLE TO ANY SNF BUT [facility]
[2022-11-08 16:10] LABS: Glucose, Whole Blood 263 mg/dL (60-115)
--- NOTE | 2022-11-08 17:02 | PC.NURSE ---
patient to pre op area for renal stent placement
--- NOTE | 2022-11-08 18:35 | MHC.SHP ---
Pre-Procedural Eval Section A Date of Service: 11/08/22 The patient is an INPATIENT: Yes Changes since office visit: No Cold of Flu in the past 2 weeks, No New Medical Problems, No Changes in Medication and No Patient answered all questions The History & Physical has been completed within 30 days and I have reviewed it.: Yes Section B Chief Complaint: Hyperkalemia, LEO, CHF Allergies: Allergies Allergy/AdvReac Type Severity Reaction Status Date / Time oxycodone [From Percocet] Allergy Intermediate Rash Verified 04/27/22 11:42 lisinopril Allergy Unknown Unknown Verified 04/27/22 11:42 Plan Diagnosis/Plan: Unchanged ( cystoscopy, bilateral retrograde, left stent placement) I have reviewed the history and physical and performed a pertinent physical examination on my patient. No changes have occurred unless specified. Time Spent With Patient Time: Total time managing care of this patient today ____ minutes.
[2022-11-08 19:01] LABS: Glucose, Whole Blood 256 mg/dL (60-115)
--- NOTE | 2022-11-08 20:23 | PC.NURSE ---
Eight unsuccessful IV access attempts by 3 RN's and anesthesiologist. Vein finder used. Access was obtained by Harriet Quintana, nursing wall mirror department supervisor.
--- NOTE | 2022-11-08 20:46 | P.CONAN_ITS ---
FORM[facility]LY [facility] Active Problems Active Problems: All Active Problems (Updated 11/01/22 @ 09:33 by Devin Callejas MD) Heart block AV second degree (Acute) LATONYA (obstructive sleep apnea) (Acute) Diabetes mellitus with insulin therapy (Acute) Pyelonephritis (Acute) Bradycardia (Acute) CKD (chronic kidney disease) stage 3, GFR 30-59 ml/min (Acute) (HFpEF) heart failure with preserved ejection fraction (Acute) Sinus bradycardia (Acute) Altered mental status (Acute) LEO (acute kidney injury) (Acute) Hyperkalemia (Acute) CHF exacerbation (Acute) CLL (chronic lymphocytic leukemia) (Chronic) Morbid obesity (Acute) Steroid-induced hyperglycemia (Acute) Acute respiratory failure with hypoxia (Acute) COPD exacerbation (Acute) Chronic lymphocytic leukemia (CLL), B-cell (Acute) Past Medical History Medical History Acute respiratory failure Bradycardia Chronic lymphocytic leukemia (CLL), B-cell CKD (chronic kidney disease) CLL (chronic lymphocytic leukemia) Congestive heart failure Congestive heart failure COVID COVID-19 Diabetes mellitus with insulin therapy Dyspnea Essential hypertension HLD (hyperlipidemia) HTN (hypertension) Hypothyroidism Hypoxia Infection with ESBL Klebsiella oxytoca Influenza A Klebsiella pneumonia Lower extremity edema Lymphadenopathy, mediastinal Migraine Obesity Pleural effusion Pleural effusion Pneumonia due to COVID-19 virus Pseudotumor cerebri PVD (peripheral vascular disease) Suspected deep tissue injury Functional capacity: bed bound Family History Family History Mother Heart attack, Onset Age: 92 Father Heart attack, Onset Age: 66 Other Diabetes Family history of problems with anesthesia: No Surgical History Surgical History H/O cataract extraction H/O hysterectomy for benign disease Hx of cholecystectomy S/P appendectomy History of Problems with Anesthesia: No Social History Social History Household Members: Family Household Members Other:: patient came from a rehab facility, been there since dec Housing: House Do you presently have visiting nurse or other home services: Yes Alcohol intake: never Patient Tobacco Use Status: Former Tobacco user Advance Directives Date on File: 09/26/20 service: No Current occupational status: disabled Meds Allergies Allergy/AdvReac Type Severity Reaction Status Date / Time oxycodone [From Percocet] Allergy Intermediate Rash Verified 04/27/22 11:42 lisinopril Allergy Unknown Unknown Verified 04/27/22 11:42 Active Medications: Current Medications Acetaminophen (Acetaminophen 325 Mg Tablet) 650 mg PO Q6H PRN PRN Reason: Pain, Mild (Pain Scale 1-3) Last Admin: 11/03/22 09:27 Dose: 650 mg Albuterol/Ipratropium (Albuterol/Iprat 2.5/0.5mg 3 Ml Ampul.Neb) 3 ml INHALE Q6H PRN PRN Reason: shortness of breath, wheezing Last Admin: 11/06/22 17:19 Dose: 3 ml Artificial Tears (Artificial Tears 15 Ml Drops) 1 drop EYE-BOTH BID [facility] Last Admin: 11/08/22 09:08 Dose: 1 drop Atorvastatin Calcium (Atorvastatin Calcium 10 Mg Tablet) 10 mg PO BEDTIME [facility] Last Admin: 11/07/22 20:56 Dose: 10 mg Bisacodyl (Bisacodyl 10 Mg Supp.Rect) 10 mg [place] DAILY PRN PRN Reason: Constipation Bumetanide (Bumetanide 1 Mg/4 Ml Vial) 2 mg IVPUSH BID@0900,1700 [facility]; Protocol Last Admin: 11/08/22 09:08 Dose: 2 mg Dextrose (Dextrose 50 % 25 Gm/50 Ml Syringe) 25 gm IVPUSH Q15M PRN; Protocol PRN Reason: per Hypoglycemia Standing Ord. Docusate Sodium (Docusate Sodium 100 Mg Capsule) 100 mg PO DAILY PRN PRN Reason: Constipation Glucose (Glucose Gel 15 Gm Gel..Gram.) 15 gm PO Q15M PRN; Protocol PRN Reason: per Hypoglycemia Standing Ord. Heparin Sodium (Porcine) (Heparin Sodium,Porcine 5,000 Unit/Ml Vial) 5,000 unit SUBCUT Q8H [facility] Last Admin: 11/08/22 09:17 Dose: Not Given Insulin Glargine (Insulin Glargine,Hum.Rec.Anlog 100 Unit/Ml 10 Ml Vial) 10 unit SUBCUT BID [facility] Last Admin: 11/08/22 09:19 Dose: Not Given Insulin Human Lispro (Insulin Lispro 100 Unit/Ml 3 Ml Vial) 0 unit SUBCUT QIDACHS [facility]; Protocol Last Admin: 11/08/22 11:58 Dose: Not Given Latanoprost (Latanoprost 0.005 % Ophth Mona 2.5 Ml Drops) 1 drop EYE-BOTH BEDTIME [facility] Last Admin: 11/07/22 20:57 Dose: 1 drop Levothyroxine Sodium (Levothyroxine Sodium 175 Mcg Tablet) 175 mcg PO DAILY@0600 [facility] Last Admin: 11/08/22 06:01 Dose: 175 mcg Magnesium Oxide (Magnesium Oxide 400 Mg Tablet) 200 mg PO DAILY [facility] Last Admin: 11/08/22 09:03 Dose: 200 mg Melatonin (Melatonin 3 Mg Tablet) 6 mg PO BEDTIME [facility] Last Admin: 11/07/22 20:56 Dose: 6 mg Pt Own ([Calquence ( Acalabrutinib Mal)] 100 Mg Tab 100 mg PO BID [facility] Last Admin: 11/08/22 09:03 Dose: 100 mg Non-Formulary Medication (Brinzolamide-Brimonidine [Simbrinza]) 1 drop EYE-RIGH T BID [facility] Nystatin (Nystatin Powder 15 Gm Bottle) 1 appl TOPICAL BID [facility]; Protocol Last Admin: 11/08/22 09:07 Dose: 1 appl Pharmacy Consult (Consult Rx Perform Med Rec) 1 each MISCELLANE ONCE PRN PRN Reason: Consult order Polyethylene Glycol (Polyethylene Glycol 3350 17 Gm Powd.Pack) 17 gm PO BID [facility] Last Admin: 11/08/22 09:04 Dose: 17 gm Prednisolone Acetate (Prednisolone Acetate 1 % Oph Susp 5 Ml Drpbtl) 1 drop EYE-RIGHT DAILY [facility] Last Admin: 11/08/22 09:09 Dose: 1 drop Prednisone (Prednisone 5 Mg Tablet) 15 mg PO DAILY [facility] Last Admin: 11/08/22 09:04 Dose: 15 mg Senna (Sennosides 8.6 Mg Tablet) 17.2 mg PO DAILY PRN PRN Reason: Constipation Sodium Chloride (0.9 % Sodium Chloride Flush 3 Ml Syringe) 3 ml IVFLUSH QSHIFT [facility] Last Admin: 11/08/22 15:34 Dose: 3 ml Timolol Maleate (Timolol Maleate 0.5 % Oph Mona 5 Ml Drbtl) 1 drop EYE-RIGHT BID [facility] Last Admin: 11/08/22 09:18 Dose: 1 drop Home Medications Medication Instructions Recorded Confirmed Last Taken Type chlordiazepoxide HCl 10 mg capsule 10 mg PO BEDTIME 10/08/21 10/27/22 Unknown History citalopram 20 mg tablet 40 mg PO DAILY 10/08/21 10/27/22 Unknown History insulin lispro protamine-lispro 0 unit subcut QIDACHS 10/08/21 10/27/22 Unknown History 100 unit/mL (75-25) subcutaneous pen levothyroxine 175 mcg tablet 175 mcg PO DAILY@0600 10/08/21 10/27/22 Unknown History simvastatin 20 mg tablet 20 mg PO BEDTIME 10/08/21 10/27/22 Unknown History sitagliptin phosphate 100 mg 100 mg PO DAILY 10/08/21 10/27/22 Unknown History tablet (Januvia) latanoprost 0.005 % eye drops 1 drp ophthalmic (eye) BEDTIME 11/20/21 10/27/22 Unknown History albuterol sulfate 0.63 mg/3 mL 0.63 mg inhalation Q2H PRN Wheezing 02/16/22 10/27/22 Unknown History solution for nebulization brinzolamide 1 %-brimonidine 0.2 % 1 drp ophthalmic-Right BID 02/16/22 10/27/22 Unknown History eye drops,suspension (Simbrinza) qraslsytvu-utcgazuyfxoqy-pihcxilf 1 tab PO Q6H PRN Headache 02/16/22 10/27/22 Unknown History 50 mg-325 mg-40 mg tablet coenzyme Q10 100 mg capsule 150 mg PO DAILY 02/16/22 10/27/22 Unknown History (CoQ-10) insulin glargine 100 unit/mL (3 16 unit subcut BID 02/16/22 10/27/22 Unknown History mL) subcutaneous pen (Lantus Solostar U-100 Insulin) melatonin 5 mg tablet 5 mg PO BEDTIME 02/16/22 10/27/22 Unknown History metoprolol tartrate 50 mg tablet 50 mg PO BID 02/16/22 10/27/22 Unknown History prednisolone acetate 1 % eye 1 drp ophthalmic-Right DAILY 02/16/22 10/27/22 Unknown History drops,suspension sennosides 8.6 mg tablet (senna) 17.2 mg PO DAILY PRN Constipation 02/16/22 10/27/22 Unknown History timolol maleate 0.5 % eye drops 1 drp ophthalmic-Right BID 02/16/22 10/27/22 Unknown History carboxymethylcellulose sodium 1 % 1 drp ophthalmic (eye) BID 03/15/22 10/27/22 Unknown History eye drops (Artificial Tears (carboxymethylcellulose)) budesonide-formoterol HFA 160 2 puff inhalation BID 04/27/22 10/27/22 Unknown History mcg-4.5 mcg/actuation aerosol inhaler (Symbicort) umeclidinium 62.5 mcg/actuation 1 inh inhalation DAILY 04/27/22 10/27/22 Unknown History blister powder for inhalation (Incruse Ellipta) acetaminophen 325 mg tablet 650 mg PO Q4H PRN Pain (Scale 06/08/22 10/27/22 Unknown History (Tylenol) Score 4-6) amlodipine 10 mg tablet 10 mg PO DAILY high blood pressure 06/08/22 10/27/22 Unknown History guaifenesin 600 mg tablet, 600 mg PO BID cough 06/08/22 10/27/22 Unknown History extended release 12 hr polyethylene glycol 3350 17 17 g PO BID 06/08/22 10/27/22 Unknown History gram/dose oral powder (Miralax) sodium phosphates 19 gram-7 118 ml [place] BEDTIME PRN Constipation 06/08/22 10/27/22 Unknown History gram/118 mL enema (Fleet Enema) levalbuterol HCl 1.25 mg/3 mL 1.25 mg inhalation QID 07/30/22 10/27/22 Unknown History solution for nebulization biotin 5 mg tablet 5 mg PO DAILY 08/11/22 10/27/22 Unknown History bisacodyl 10 mg rectal suppository 10 mg [place] DAILY PRN Constipation 08/11/22 10/27/22 Unknown History guaifenesin 100 mg/5 mL oral liquid 200 mg PO Q4H PRN Pain (Scale 08/11/22 10/27/22 Unknown History Score 1-3) hydroxychloroquine 200 mg tablet 200 mg PO BID 08/11/22 10/27/22 Unknown History hydroxyzine HCl 25 mg tablet 25 mg PO DAILY 08/11/22 10/27/22 Unknown History lorazepam 0.5 mg tablet 0.5 mg PO BID PRN Anxiety 08/11/22 10/27/22 Unknown History magnesium 200 mg tablet 400 mg PO DAILY 08/11/22 10/27/22 Unknown History riboflavin (vitamin B2) 400 mg 400 mg PO DAILY 08/11/22 10/27/22 Unknown History tablet diphenhydramine-zinc acetate 2 1 appl topical BID 10/27/22 10/27/22 Unknown History %-0.1 % topical cream nystatin 100,000 unit/gram topical 1 appl topical BID 10/27/22 10/27/22 Unknown History powder prednisone 1 mg tablet 6 mg PO DAILY 10/27/22 10/27/22 Unknown History sennosides 8.6 mg-docusate sodium 1 tab-cap PO DAILY 10/27/22 10/27/22 Unknown History 50 mg tablet (Senna-S) Exam Exam Date and Time: November 08, [id number] Height,Weight and Vital Signs: Height 5 ft 6 in Weight 123.4 kg Last Vital Signs Temp 97.7 F 11/08/22 17:14 Pulse 70 11/08/22 17:14 Resp 18 11/08/22 17:14 BP 168/58 H 11/08/22 17:14 Pulse Ox 100 11/08/22 17:14 O2 Del Method Room Air 11/08/22 17:14 O2 Flow Rate 97 11/05/22 03:24 FiO2 28 11/02/22 07:50 Oxygen Flow Rate 4 10/27/22 20:01 Pertinent Lab Results Pertinent Lab Results: Laboratory Tests 10/27/22 10/27/22 10/27/22 19:55 20:32 20:41 WBC 17.4 H RBC 3.20 L Hgb 7.8 L D Hct 26.4 L MCV 82.5 MCH 24.4 L MCHC 29.5 L RDW 14.6 Plt Count 237 D MPV 12.8 H Immature Gran % (Auto) 0.6 H Neut % (Auto) 90.7 H Lymph % (Auto) 5.8 L Park % (Auto) 1.7 L Eos % (Auto) 0.8 Baso % (Auto) 0.4 Lymph # (Auto) 1.0 L Park # (Auto) 0.3 Eos # (Auto) 0.1 Baso # (Auto) 0.1 Abs Immat Gran (auto) 0.10 H Absolute Neuts (auto) 15.8 H Absolute Nucleated RBC 0.000 Nucleated RBC % (auto) 0.0 Smear Tech's Comments VERIFIED PT INR O2 Saturation ABG pH at Pt Temp ABG pCO2 at Pt Temp ABG pO2 at Pt Temp ABG HCO3 ABG Base Excess (Actual) VBG pH VBG pCO2 VBG pO2 VBG HCO3 VBG O2 Saturation VBG Base Excess Sodium Potassium Chloride Carbon Dioxide Anion Gap BUN Creatinine Estim Creat Clear Calc Estimated GFR POC Glucose 305 H Random Glucose Calcium Phosphorus Magnesium Total Bilirubin AST ALT Alkaline Phosphatase Troponin I High Sens B-Natriuretic Peptide Total Protein Albumin TSH Urine Color Urine Appearance Urine pH Ur Specific [place] Urine Protein Urine Glucose (UA) Urine Ketones Urine Blood Urine Nitrite Ur Leukocyte Esterase Urine RBC Urine WBC Ur Squamous Epith Cells Urine Bacteria Hyaline Casts Stool Occult Blood Proteinase 3 (PR3) Ab Myeloperoxidase Ab Complement C3 Complement C4 Free Ellerbe LC, Quant Free Lambda LC, Quant Free Ellerbe/Lambda Ratio COVID-19 (DENY) Negative COVID-19 Clin Com See Note Hep Bs Antigen Hep Bs Antibody Hep B Core Total Ab Hepatitis C Ab (EIA) Blood Type Antibody Screen Crossmatch 10/27/22 10/27/22 10/27/22 20:41 20:41 20:44 WBC RBC Hgb Hct MCV MCH MCHC RDW Plt Count MPV Immature Gran % (Auto) Neut % (Auto) Lymph % (Auto) Park % (Auto) Eos % (Auto) Baso % (Auto) Lymph # (Auto) Park # (Auto) Eos # (Auto) Baso # (Auto) Abs Immat Gran (auto) Absolute Neuts (auto) Absolute Nucleated RBC Nucleated RBC % (auto) Smear Tech's Comments PT 12.3 INR 1.0 O2 Saturation ABG pH at Pt Temp ABG pCO2 at Pt Temp ABG pO2 at Pt Temp ABG HCO3 ABG Base Excess (Actual) VBG pH VBG pCO2 VBG pO2 VBG HCO3 VBG O2 Saturation VBG Base Excess Sodium 133 L Potassium 7.0 H* D Chloride 100 Carbon Dioxide 19 L Anion Gap 21 H BUN 88 H Creatinine 4.59 H* Estim Creat Clear Calc 15.4 Estimated GFR 9 POC Glucose Random Glucose 324 H Calcium 8.1 L D Phosphorus Magnesium 2.5 Total Bilirubin 0.2 AST 26 ALT 19 Alkaline Phosphatase 68 Troponin I High Sens 54.5 H* D B-Natriuretic Peptide Total Protein 6.0 L Albumin 2.7 L TSH Urine Color Urine Appearance Urine pH Ur Specific [place] Urine Protein Urine Glucose (UA) Urine Ketones Urine Blood Urine Nitrite Ur Leukocyte Esterase Urine RBC Urine WBC Ur Squamous Epith Cells Urine Bacteria Hyaline Casts Stool Occult Blood Proteinase 3 (PR3) Ab Myeloperoxidase Ab Complement C3 Complement C4 Free Ellerbe LC, Quant Free Lambda LC, Quant Free Ellerbe/Lambda Ratio COVID-19 (DENY) COVID-19 Clin Com Hep Bs Antigen Hep Bs Antibody Hep B Core Total Ab Hepatitis C Ab (EIA) Blood Type Antibody Screen Crossmatch 10/27/22 10/27/22 10/27/22 21:55 21:55 22:10 WBC RBC Hgb Hct MCV MCH MCHC RDW Plt Count MPV Immature Gran % (Auto) Neut % (Auto) Lymph % (Auto) Park % (Auto) Eos % (Auto) Baso % (Auto) Lymph # (Auto) Park # (Auto) Eos # (Auto) Baso # (Auto) Abs Immat Gran (auto) Absolute Neuts (auto) Absolute Nucleated RBC Nucleated RBC % (auto) Smear Tech's Comments PT INR O2 Saturation ABG pH at Pt Temp ABG pCO2 at Pt Temp ABG pO2 at Pt Temp ABG HCO3 ABG Base Excess (Actual) VBG pH 7.35 VBG pCO2 48 VBG pO2 42 VBG HCO3 26 VBG O2 Saturation 64.0 VBG Base Excess 1.0 Sodium Potassium Chloride Carbon Dioxide Anion Gap BUN Creatinine Estim Creat Clear Calc Estimated GFR POC Glucose Random Glucose Calcium Phosphorus Magnesium Total Bilirubin AST ALT Alkaline Phosphatase Troponin I High Sens B-Natriuretic Peptide Total Protein Albumin TSH Urine Color Urine Appearance Urine pH Ur Specific [place] Urine Protein Urine Glucose (UA) Urine Ketones Urine Blood Urine Nitrite Ur Leukocyte Esterase Urine RBC Urine WBC Ur Squamous Epith Cells Urine Bacteria Hyaline Casts Stool Occult Blood NEGATIVE Proteinase 3 (PR3) Ab Myeloperoxidase Ab Complement C3 Complement C4 Free Ellerbe LC, Quant Free Lambda LC, Quant Free Ellerbe/Lambda Ratio COVID-19 (DENY) COVID-19 Clin Com Hep Bs Antigen Hep Bs Antibody Hep B Core Total Ab Hepatitis C Ab (EIA) Blood Type B Positive Antibody Screen NEGATIVE Crossmatch See Detail 10/27/22 10/28/22 10/28/22 22:43 01:53 01:53 WBC RBC Hgb Hct MCV MCH MCHC RDW Plt Count MPV Immature Gran % (Auto) Neut % (Auto) Lymph % (Auto) Park % (Auto) Eos % (Auto) Baso % (Auto) Lymph # (Auto) Park # (Auto) Eos # (Auto) Baso # (Auto) Abs Immat Gran (auto) Absolute Neuts (auto) Absolute Nucleated RBC Nucleated RBC % (auto) Smear Tech's Comments PT INR O2 Saturation ABG pH at Pt Temp ABG pCO2 at Pt Temp ABG pO2 at Pt Temp ABG HCO3 ABG Base Excess (Actual) VBG pH VBG pCO2 VBG pO2 VBG HCO3 VBG O2 Saturation VBG Base Excess Sodium 135 Cancelled 134 L Potassium 6.4 H* Cancelled 6.6 H* Chloride 101 Cancelled 101 Carbon Dioxide 21 L Cancelled 20 L Anion Gap 19 Cancelled 20 BUN 88 H Cancelled 90 H Creatinine 4.44 H* Cancelled 4.49 H* Estim Creat Clear Calc 15.9 Cancelled 15.7 Estimated GFR 10 Cancelled 10 POC Glucose Random Glucose 291 H Cancelled 177 H Calcium 8.6 D Cancelled 9.0 Phosphorus Magnesium Total Bilirubin AST ALT Alkaline Phosphatase Troponin I High Sens B-Natriuretic Peptide Total Protein Albumin TSH Urine Color Urine Appearance Urine pH Ur Specific [place] Urine Protein Urine Glucose (UA) Urine Ketones Urine Blood Urine Nitrite Ur Leukocyte Esterase Urine RBC Urine WBC Ur Squamous Epith Cells Urine Bacteria Hyaline Casts Stool Occult Blood Proteinase 3 (PR3) Ab Myeloperoxidase Ab Complement C3 Complement C4 Free Ellerbe LC, Quant Free Lambda LC, Quant Free Ellerbe/Lambda Ratio COVID-19 (DENY) COVID-19 Clin Com Hep Bs Antigen Hep Bs Antibody Hep B Core Total Ab Hepatitis C Ab (EIA) Blood Type Antibody Screen Crossmatch 10/28/22 10/28/22 10/28/22 01:53 04:33 04:33 WBC RBC Hgb Hct MCV MCH MCHC RDW Plt Count MPV Immature Gran % (Auto) Neut % (Auto) Lymph % (Auto) Park % (Auto) Eos % (Auto) Baso % (Auto) Lymph # (Auto) Park # (Auto) Eos # (Auto) Baso # (Auto) Abs Immat Gran (auto) Absolute Neuts (auto) Absolute Nucleated RBC Nucleated RBC % (auto) Smear Tech's Comments PT INR O2 Saturation ABG pH at Pt Temp ABG pCO2 at Pt Temp ABG pO2 at Pt Temp ABG HCO3 ABG Base Excess (Actual) VBG pH VBG pCO2 VBG pO2 VBG HCO3 VBG O2 Saturation VBG Base Excess Sodium 133 L Potassium 6.5 H* Chloride 100 Carbon Dioxide 19 L Anion Gap 21 H BUN 92 H Creatinine 4.47 H* Estim Creat Clear Calc 15.8 Estimated GFR 10 POC Glucose Random Glucose 164 H Calcium 9.0 Phosphorus Magnesium Total Bilirubin 0.2 AST 22 ALT 21 Alkaline Phosphatase 66 Troponin I High Sens 76.8 H* B-Natriuretic Peptide 1017 H Total Protein 6.2 L Albumin 3.0 L TSH Urine Color Urine Appearance Urine pH Ur Specific [place] Urine Protein Urine Glucose (UA) Urine Ketones Urine Blood Urine Nitrite Ur Leukocyte Esterase Urine RBC Urine WBC Ur Squamous Epith Cells Urine Bacteria Hyaline Casts Stool Occult Blood Proteinase 3 (PR3) Ab Myeloperoxidase Ab Complement C3 Complement C4 Free Ellerbe LC, Quant Free Lambda LC, Quant Free Ellerbe/Lambda Ratio COVID-19 (DENY) COVID-19 Clin Com Hep Bs Antigen Hep Bs Antibody Hep B Core Total Ab Hepatitis C Ab (EIA) Blood Type Antibody Screen Crossmatch 10/28/22 10/28/22 10/28/22 07:17 07:38 15:09 WBC RBC Hgb Hct MCV MCH MCHC RDW Plt Count MPV Immature Gran % (Auto) Neut % (Auto) Lymph % (Auto) Park % (Auto) Eos % (Auto) Baso % (Auto) Lymph # (Auto) Park # (Auto) Eos # (Auto) Baso # (Auto) Abs Immat Gran (auto) Absolute Neuts (auto) Absolute Nucleated RBC Nucleated RBC % (auto) Smear Tech's Comments PT INR O2 Saturation ABG pH at Pt Temp ABG pCO2 at Pt Temp ABG pO2 at Pt Temp ABG HCO3 ABG Base Excess (Actual) VBG pH VBG pCO2 VBG pO2 VBG HCO3 VBG O2 Saturation VBG Base Excess Sodium Potassium Chloride Carbon Dioxide Anion Gap BUN Creatinine Estim Creat Clear Calc Estimated GFR POC Glucose 199 H 212 H Random Glucose Calcium Phosphorus Magnesium Total Bilirubin AST ALT Alkaline Phosphatase Troponin I High Sens B-Natriuretic Peptide Total Protein Albumin TSH Urine Color Yellow Urine Appearance Turbid Urine pH 5.5 Ur Specific [place] 1.015 Urine Protein Trace Urine Glucose (UA) Negative Urine Ketones Negative Urine Blood Negative Urine Nitrite Negative Ur Leukocyte Esterase Large (3+) H Urine RBC 3-5 H Urine WBC >50 H Ur Squamous Epith Cells >20 Urine Bacteria 4+ Hyaline Casts 6-10 Stool Occult Blood Proteinase 3 (PR3) Ab Myeloperoxidase Ab Complement C3 Complement C4 Free Ellerbe LC, Quant Free Lambda LC, Quant Free Ellerbe/Lambda Ratio COVID-19 (DENY) COVID-19 Clin Com Hep Bs Antigen Hep Bs Antibody Hep B Core Total Ab Hepatitis C Ab (EIA) Blood Type Antibody Screen Crossmatch 10/28/22 10/28/22 10/28/22 17:08 20:29 21:12 WBC RBC Hgb Hct MCV MCH MCHC RDW Plt Count MPV Immature Gran % (Auto) Neut % (Auto) Lymph % (Auto) Park % (Auto) Eos % (Auto) Baso % (Auto) Lymph # (Auto) Park # (Auto) Eos # (Auto) Baso # (Auto) Abs Immat Gran (auto) Absolute Neuts (auto) Absolute Nucleated RBC Nucleated RBC % (auto) Smear Tech's Comments PT INR O2 Saturation ABG pH at Pt Temp ABG pCO2 at Pt Temp ABG pO2 at Pt Temp ABG HCO3 ABG Base Excess (Actual) VBG pH VBG pCO2 VBG pO2 VBG HCO3 VBG O2 Saturation VBG Base Excess Sodium 131 L Potassium 6.7 H* Chloride 98 Carbon Dioxide 17 L Anion Gap 23 H BUN 93 H Creatinine 4.34 H* Estim Creat Clear Calc 16.2 Estimated GFR 10 POC Glucose 209 H 228 H Random Glucose 227 H Calcium 9.3 Phosphorus Magnesium Total Bilirubin AST ALT Alkaline Phosphatase Troponin I High Sens B-Natriuretic Peptide Total Protein Albumin TSH Urine Color Urine Appearance Urine pH Ur Specific [place] Urine Protein Urine Glucose (UA) Urine Ketones Urine Blood Urine Nitrite Ur Leukocyte Esterase Urine RBC Urine WBC Ur Squamous Epith Cells Urine Bacteria Hyaline Casts Stool Occult Blood Proteinase 3 (PR3) Ab Myeloperoxidase Ab Complement C3 Complement C4 Free Ellerbe LC, Quant Free Lambda LC, Quant Free Ellerbe/Lambda Ratio COVID-19 (DENY) COVID-19 Clin Com Hep Bs Antigen Hep Bs Antibody Hep B Core Total Ab Hepatitis C Ab (EIA) Blood Type Antibody Screen Crossmatch 10/28/22 10/29/22 10/29/22 22:20 07:45 08:30 WBC 15.1 H RBC 3.36 L Hgb 8.5 L Hct 28.1 L MCV 83.6 MCH 25.3 L MCHC 30.2 L RDW 14.6 Plt Count 221 MPV 12.3 Immature Gran % (Auto) Neut % (Auto) Lymph % (Auto) Park % (Auto) Eos % (Auto) Baso % (Auto) Lymph # (Auto) Park # (Auto) Eos # (Auto) Baso # (Auto) Abs Immat Gran (auto) Absolute Neuts (auto) Absolute Nucleated RBC 0.000 Nucleated RBC % (auto) 0.0 Smear Tech's Comments PT INR O2 Saturation ABG pH at Pt Temp ABG pCO2 at Pt Temp ABG pO2 at Pt Temp ABG HCO3 ABG Base Excess (Actual) VBG pH VBG pCO2 VBG pO2 VBG HCO3 VBG O2 Saturation VBG Base Excess Sodium Potassium Chloride Carbon Dioxide Anion Gap BUN Creatinine Estim Creat Clear Calc Estimated GFR POC Glucose 54 L* Random Glucose Calcium Phosphorus Magnesium Total Bilirubin AST ALT Alkaline Phosphatase Troponin I High Sens B-Natriuretic Peptide 1161 H Total Protein Albumin TSH Urine Color Urine Appearance Urine pH Ur Specific [place] Urine Protein Urine Glucose (UA) Urine Ketones Urine Blood Urine Nitrite Ur Leukocyte Esterase Urine RBC Urine WBC Ur Squamous Epith Cells Urine Bacteria Hyaline Casts Stool Occult Blood Proteinase 3 (PR3) Ab Myeloperoxidase Ab Complement C3 Complement C4 Free Ellerbe LC, Quant Free Lambda LC, Quant Free Ellerbe/Lambda Ratio COVID-19 (DENY) COVID-19 Clin Com Hep Bs Antigen Hep Bs Antibody Hep B Core Total Ab Hepatitis C Ab (EIA) Blood Type Antibody Screen Crossmatch 10/29/22 10/29/22 10/29/22 08:30 11:07 16:31 WBC RBC Hgb Hct MCV MCH MCHC RDW Plt Count MPV Immature Gran % (Auto) Neut % (Auto) Lymph % (Auto) Park % (Auto) Eos % (Auto) Baso % (Auto) Lymph # (Auto) [place] # (Auto) Eos # (Auto) Baso # (Auto) Abs Immat Gran (auto) Absolute Neuts (auto) Absolute Nucleated RBC Nucleated RBC % (auto) Smear Tech's Comments PT INR O2 Saturation ABG pH at Pt Temp ABG pCO2 at Pt Temp ABG pO2 at Pt Temp ABG HCO3 ABG Base Excess (Actual) VBG pH VBG pCO2 VBG pO2 VBG HCO3 VBG O2 Saturation VBG Base Excess Sodium 134 L Potassium 5.8 H Chloride 99 Carbon Dioxide 19 L Anion Gap 22 H BUN 95 H Creatinine 4.26 H* Estim Creat Clear Calc 16.8 Estimated GFR 10 POC Glucose 85 148 H Random Glucose 55 L* Calcium 9.3 Phosphorus Magnesium Total Bilirubin AST ALT Alkaline Phosphatase Troponin I High Sens B-Natriuretic Peptide Total Protein Albumin TSH 0.99 Urine Color Urine Appearance Urine pH Ur Specific [place] Urine Protein Urine Glucose (UA) Urine Ketones Urine Blood Urine Nitrite Ur Leukocyte Esterase Urine RBC Urine WBC Ur Squamous Epith Cells Urine Bacteria Hyaline Casts Stool Occult Blood Proteinase 3 (PR3) Ab Myeloperoxidase Ab Complement C3 Complement C4 Free Ellerbe LC, Quant Free Lambda LC, Quant Free Ellerbe/Lambda Ratio COVID-19 (DENY) COVID-19 Clin Com Hep Bs Antigen Hep Bs Antibody Hep B Core Total Ab Hepatitis C Ab (EIA) Blood Type Antibody Screen Crossmatch 10/29/22 10/29/22 10/29/22 19:13 19:13 19:13 WBC RBC Hgb Hct MCV MCH MCHC RDW Plt Count MPV Immature Gran % (Auto) Neut % (Auto) Lymph % (Auto) Park % (Auto) Eos % (Auto) Baso % (Auto) Lymph # (Auto) [place] # (Auto) Eos # (Auto) Baso # (Auto) Abs Immat Gran (auto) Absolute Neuts (auto) Absolute Nucleated RBC Nucleated RBC % (auto) Smear Tech's Comments PT INR O2 Saturation ABG pH at Pt Temp ABG pCO2 at Pt Temp ABG pO2 at Pt Temp ABG HCO3 ABG Base Excess (Actual) VBG pH VBG pCO2 VBG pO2 VBG HCO3 VBG O2 Saturation VBG Base Excess Sodium Potassium Chloride Carbon Dioxide Anion Gap BUN Creatinine Estim Creat Clear Calc Estimated GFR POC Glucose Random Glucose Calcium Phosphorus Magnesium Total Bilirubin AST ALT Alkaline Phosphatase Troponin I High Sens B-Natriuretic Peptide Total Protein Albumin TSH Urine Color Urine Appearance Urine pH Ur Specific [place] Urine Protein Urine Glucose (UA) Urine Ketones Urine Blood Urine Nitrite Ur Leukocyte Esterase Urine RBC Urine WBC Ur Squamous Epith Cells Urine Bacteria Hyaline Casts Stool Occult Blood Proteinase 3 (PR3) Ab <1.0 Myeloperoxidase Ab <1.0 Complement C3 99 Complement C4 38 Free Ellerbe LC, Quant 87.5 H Free Lambda LC, Quant 52.7 H Free Ellerbe/Lambda Ratio 1.66 H COVID-19 (DENY) COVID-19 Clin Com Hep Bs Antigen Hep Bs Antibody Hep B Core Total Ab Hepatitis C Ab (EIA) Blood Type Antibody Screen Crossmatch 10/29/22 10/29/22 10/30/22 19:13 19:55 06:28 WBC RBC Hgb Hct MCV MCH MCHC RDW Plt Count MPV Immature Gran % (Auto) Neut % (Auto) Lymph % (Auto) Park % (Auto) Eos % (Auto) Baso % (Auto) Lymph # (Auto) Park # (Auto) Eos # (Auto) Baso # (Auto) Abs Immat Gran (auto) Absolute Neuts (auto) Absolute Nucleated RBC Nucleated RBC % (auto) Smear Tech's Comments PT INR O2 Saturation ABG pH at Pt Temp ABG pCO2 at Pt Temp ABG pO2 at Pt Temp ABG HCO3 ABG Base Excess (Actual) VBG pH VBG pCO2 VBG pO2 VBG HCO3 VBG O2 Saturation VBG Base Excess Sodium 135 Potassium 4.6 D Chloride 100 Carbon Dioxide 20 L Anion Gap 20 BUN 97 H Creatinine 4.30 H* Estim Creat Clear Calc 16.8 Estimated GFR 10 POC Glucose 134 H Random Glucose 94 Calcium 8.6 D Phosphorus Magnesium Total Bilirubin AST ALT Alkaline Phosphatase Troponin I High Sens B-Natriuretic Peptide Total Protein Albumin TSH Urine Color Urine Appearance Urine pH Ur Specific [place] Urine Protein Urine Glucose (UA) Urine Ketones Urine Blood Urine Nitrite Ur Leukocyte Esterase Urine RBC Urine WBC Ur Squamous Epith Cells Urine Bacteria Hyaline Casts Stool Occult Blood Proteinase 3 (PR3) Ab Myeloperoxidase Ab Complement C3 Complement C4 Free Ellerbe LC, Quant Free Lambda LC, Quant Free Ellerbe/Lambda Ratio COVID-19 (DENY) COVID-19 Clin Com Hep Bs Antigen Negative Hep Bs Antibody NONREACTIVE Hep B Core Total Ab Nonreactive Hepatitis C Ab (EIA) Nonreactive Blood Type Antibody Screen Crossmatch 10/30/22 10/30/22 10/30/22 07:28 11:35 16:57 WBC RBC Hgb Hct MCV MCH MCHC RDW Plt Count MPV Immature Gran % (Auto) Neut % (Auto) Lymph % (Auto) Park % (Auto) Eos % (Auto) Baso % (Auto) Lymph # (Auto) Park # (Auto) Eos # (Auto) Baso # (Auto) Abs Immat Gran (auto) Absolute Neuts (auto) Absolute Nucleated RBC Nucleated RBC % (auto) Smear Tech's Comments PT INR O2 Saturation ABG pH at Pt Temp ABG pCO2 at Pt Temp ABG pO2 at Pt Temp ABG HCO3 ABG Base Excess (Actual) VBG pH VBG pCO2 VBG pO2 VBG HCO3 VBG O2 Saturation VBG Base Excess Sodium Potassium Chloride Carbon Dioxide Anion Gap BUN Creatinine Estim Creat Clear Calc Estimated GFR POC Glucose 93 159 H 214 H Random Glucose Calcium Phosphorus Magnesium Total Bilirubin AST ALT Alkaline Phosphatase Troponin I High Sens B-Natriuretic Peptide Total Protein Albumin TSH Urine Color Urine Appearance Urine pH Ur Specific [place] Urine Protein Urine Glucose (UA) Urine Ketones Urine Blood Urine Nitrite Ur Leukocyte Esterase Urine RBC Urine WBC Ur Squamous Epith Cells Urine Bacteria Hyaline Casts Stool Occult Blood Proteinase 3 (PR3) Ab Myeloperoxidase Ab Complement C3 Complement C4 Free Ellerbe LC, Quant Free Lambda LC, Quant Free Ellerbe/Lambda Ratio COVID-19 (DENY) COVID-19 Clin Com Hep Bs Antigen Hep Bs Antibody Hep B Core Total Ab Hepatitis C Ab (EIA) Blood Type Antibody Screen Crossmatch 10/30/22 10/30/22 10/30/22 18:18 18:27 22:00 WBC RBC Hgb Hct MCV MCH MCHC RDW Plt Count MPV Immature Gran % (Auto) Neut % (Auto) Lymph % (Auto) Park % (Auto) Eos % (Auto) Baso % (Auto) Lymph # (Auto) Park # (Auto) Eos # (Auto) Baso # (Auto) Abs Immat Gran (auto) Absolute Neuts (auto) Absolute Nucleated RBC Nucleated RBC % (auto) Smear Tech's Comments PT INR O2 Saturation 86.0 ABG pH at Pt Temp 7.32 L ABG pCO2 at Pt Temp 44 ABG pO2 at Pt Temp 61 L ABG HCO3 23 ABG Base Excess (Actual) -2.6 VBG pH VBG pCO2 VBG pO2 VBG HCO3 VBG O2 Saturation VBG Base Excess Sodium 135 Potassium 5.3 H Chloride 98 Carbon Dioxide 17 L Anion Gap 25 H BUN 102 H Creatinine 4.51 H* Estim Creat Clear Calc 16.1 Estimated GFR 10 POC Glucose 335 H Random Glucose 296 H Calcium 8.4 Phosphorus 7.5 H Magnesium 2.4 Total Bilirubin AST ALT Alkaline Phosphatase Troponin I High Sens B-Natriuretic Peptide Total Protein Albumin TSH Urine Color Urine Appearance Urine pH Ur Specific [place] Urine Protein Urine Glucose (UA) Urine Ketones Urine Blood Urine Nitrite Ur Leukocyte Esterase Urine RBC Urine WBC Ur Squamous Epith Cells Urine Bacteria Hyaline Casts Stool Occult Blood Proteinase 3 (PR3) Ab Myeloperoxidase Ab Complement C3 Complement C4 Free Ellerbe LC, Quant Free Lambda LC, Quant Free Ellerbe/Lambda Ratio COVID-19 (DENY) COVID-19 Clin Com Hep Bs Antigen Hep Bs Antibody Hep B Core Total Ab Hepatitis C Ab (EIA) Blood Type Antibody Screen Crossmatch 10/31/22 10/31/22 10/31/22 01:41 01:41 01:41 WBC RBC Hgb Hct MCV MCH MCHC RDW Plt Count MPV Immature Gran % (Auto) Neut % (Auto) Lymph % (Auto) Park % (Auto) Eos % (Auto) Baso % (Auto) Lymph # (Auto) Park # (Auto) Eos # (Auto) Baso # (Auto) Abs Immat Gran (auto) Absolute Neuts (auto) Absolute Nucleated RBC Nucleated RBC % (auto) Smear Tech's Comments PT INR O2 Saturation ABG pH at Pt Temp ABG pCO2 at Pt Temp ABG pO2 at Pt Temp ABG HCO3 ABG Base Excess (Actual) VBG pH VBG pCO2 VBG pO2 VBG HCO3 VBG O2 Saturation VBG Base Excess Sodium 136 Potassium 3.2 L D Chloride 97 Carbon Dioxide 22 Anion Gap 20 BUN 49 H Creatinine 2.59 H Estim Creat Clear Calc 28.0 Estimated GFR 18 POC Glucose Random Glucose 266 H Calcium 8.7 Phosphorus 4.2 Magnesium 2.1 Total Bilirubin 0.3 AST 26 ALT 27 Alkaline Phosphatase 108 Troponin I High Sens B-Natriuretic Peptide 1198 H Total Protein 6.9 Albumin 4.0 TSH Urine Color Urine Appearance Urine pH Ur Specific [place] Urine Protein Urine Glucose (UA) Urine Ketones Urine Blood Urine Nitrite Ur Leukocyte Esterase Urine RBC Urine WBC Ur Squamous Epith Cells Urine Bacteria Hyaline Casts Stool Occult Blood Proteinase 3 (PR3) Ab Myeloperoxidase Ab Complement C3 Complement C4 Free Ellerbe LC, Quant Free Lambda LC, Quant Free Ellerbe/Lambda Ratio COVID-19 (DENY) COVID-19 Clin Com Hep Bs Antigen Hep Bs Antibody Hep B Core Total Ab Hepatitis C Ab (EIA) Blood Type Antibody Screen Crossmatch 10/31/22 10/31/22 10/31/22 01:45 04:52 04:53 WBC 15.8 H RBC 2.97 L Hgb 7.3 L Hct 25.0 L MCV 84.2 MCH 24.6 L MCHC 29.2 L RDW 15.2 Plt Count 239 MPV Not Reportable Immature Gran % (Auto) 1.0 H Neut % (Auto) 84.5 H Lymph % (Auto) 4.4 L Park % (Auto) 9.2 Eos % (Auto) 0.5 Baso % (Auto) 0.4 Lymph # (Auto) 0.7 L Park # (Auto) 1.5 H Eos # (Auto) 0.1 Baso # (Auto) 0.1 Abs Immat Gran (auto) 0.16 H Absolute Neuts (auto) 13.3 H Absolute Nucleated RBC 0.000 Nucleated RBC % (auto) 0.0 Smear Tech's Comments VERIFIED PT INR O2 Saturation ABG pH at Pt Temp ABG pCO2 at Pt Temp ABG pO2 at Pt Temp ABG HCO3 ABG Base Excess (Actual) VBG pH 7.34 7.35 VBG pCO2 47 45 VBG pO2 51 43 VBG HCO3 26 25 VBG O2 Saturation 81.0 71.0 VBG Base Excess 0.1 -0.1 Sodium Potassium Chloride Carbon Dioxide Anion Gap BUN Creatinine Estim Creat Clear Calc Estimated GFR POC Glucose Random Glucose Calcium Phosphorus Magnesium Total Bilirubin AST ALT Alkaline Phosphatase Troponin I High Sens B-Natriuretic Peptide Total Protein Albumin TSH Urine Color Urine Appearance Urine pH Ur Specific [place] Urine Protein Urine Glucose (UA) Urine Ketones Urine Blood Urine Nitrite Ur Leukocyte Esterase Urine RBC Urine WBC Ur Squamous Epith Cells Urine Bacteria Hyaline Casts Stool Occult Blood Proteinase 3 (PR3) Ab Myeloperoxidase Ab Complement C3 Complement C4 Free Ellerbe LC, Quant Free Lambda LC, Quant Free Ellerbe/Lambda Ratio COVID-19 (DENY) COVID-19 Clin Com Hep Bs Antigen Hep Bs Antibody Hep B Core Total Ab Hepatitis C Ab (EIA) Blood Type Antibody Screen Crossmatch 10/31/22 10/31/22 10/31/22 04:53 07:33 11:32 WBC RBC Hgb Hct MCV MCH MCHC RDW Plt Count MPV Immature Gran % (Auto) Neut % (Auto) Lymph % (Auto) Park % (Auto) Eos % (Auto) Baso % (Auto) Lymph # (Auto) Park # (Auto) Eos # (Auto) Baso # (Auto) Abs Immat Gran (auto) Absolute Neuts (auto) Absolute Nucleated RBC Nucleated RBC % (auto) Smear Tech's Comments PT INR O2 Saturation ABG pH at Pt Temp ABG pCO2 at Pt Temp ABG pO2 at Pt Temp ABG HCO3 ABG Base Excess (Actual) VBG pH VBG pCO2 VBG pO2 VBG HCO3 VBG O2 Saturation VBG Base Excess Sodium 133 L Potassium 3.3 Chloride 95 L Carbon Dioxide 20 L Anion Gap 21 H BUN 52 H Creatinine 3.04 H Estim Creat Clear Calc 23.9 Estimated GFR 15 POC Glucose 290 H 260 H Random Glucose 308 H Calcium 8.6 Phosphorus 4.6 H Magnesium 2.2 Total Bilirubin AST ALT Alkaline Phosphatase Troponin I High Sens B-Natriuretic Peptide Total Protein Albumin 4.1 TSH Urine Color Urine Appearance Urine pH Ur Specific [place] Urine Protein Urine Glucose (UA) Urine Ketones Urine Blood Urine Nitrite Ur Leukocyte Esterase Urine RBC Urine WBC Ur Squamous Epith Cells Urine Bacteria Hyaline Casts Stool Occult Blood Proteinase 3 (PR3) Ab Myeloperoxidase Ab Complement C3 Complement C4 Free Ellerbe LC, Quant Free Lambda LC, Quant Free Ellerbe/Lambda Ratio COVID-19 (DENY) COVID-19 Clin Com Hep Bs Antigen Hep Bs Antibody Hep B Core Total Ab Hepatitis C Ab (EIA) Blood Type Antibody Screen Crossmatch 10/31/22 10/31/22 11/01/22 16:17 21:08 04:50 WBC 13.9 H RBC 3.49 L Hgb 8.6 L Hct 28.8 L MCV 82.5 MCH 24.6 L MCHC 29.9 L RDW 14.8 Plt Count 178 D MPV 12.0 Immature Gran % (Auto) 1.0 H Neut % (Auto) 81.5 H Lymph % (Auto) 7.2 L Park % (Auto) 6.5 Eos % (Auto) 3.4 Baso % (Auto) 0.4 Lymph # (Auto) 1.0 L [place] # (Auto) 0.9 Eos # (Auto) 0.5 H Baso # (Auto) 0.1 Abs Immat Gran (auto) 0.14 H Absolute Neuts (auto) 11.3 H Absolute Nucleated RBC 0.000 Nucleated RBC % (auto) 0.0 Smear Tech's Comments PT INR O2 Saturation ABG pH at Pt Temp ABG pCO2 at Pt Temp ABG pO2 at Pt Temp ABG HCO3 ABG Base Excess (Actual) VBG pH VBG pCO2 VBG pO2 VBG HCO3 VBG O2 Saturation VBG Base Excess Sodium Potassium Chloride Carbon Dioxide Anion Gap BUN Creatinine Estim Creat Clear Calc Estimated GFR POC Glucose 243 H 189 H Random Glucose Calcium Phosphorus Magnesium Total Bilirubin AST ALT Alkaline Phosphatase Troponin I High Sens B-Natriuretic Peptide Total Protein Albumin TSH Urine Color Urine Appearance Urine pH Ur Specific [place] Urine Protein Urine Glucose (UA) Urine Ketones Urine Blood Urine Nitrite Ur Leukocyte Esterase Urine RBC Urine WBC Ur Squamous Epith Cells Urine Bacteria Hyaline Casts Stool Occult Blood Proteinase 3 (PR3) Ab Myeloperoxidase Ab Complement C3 Complement C4 Free Ellerbe LC, Quant Free Lambda LC, Quant Free [place]erbe/Lambda Ratio COVID-19 (DENY) COVID-19 Clin Com Hep Bs Antigen Hep Bs Antibody Hep B Core Total Ab Hepatitis C Ab (EIA) Blood Type Antibody Screen Crossmatch 11/01/22 11/01/22 11/01/22 04:50 05:02 07:45 WBC RBC Hgb Hct MCV MCH MCHC RDW Plt Count MPV Immature Gran % (Auto) Neut % (Auto) Lymph % (Auto) Park % (Auto) Eos % (Auto) Baso % (Auto) Lymph # (Auto) Park # (Auto) Eos # (Auto) Baso # (Auto) Abs Immat Gran (auto) Absolute Neuts (auto) Absolute Nucleated RBC Nucleated RBC % (auto) Smear Tech's Comments PT INR O2 Saturation ABG pH at Pt Temp ABG pCO2 at Pt Temp ABG pO2 at Pt Temp ABG HCO3 ABG Base Excess (Actual) VBG pH 7.37 VBG pCO2 44 VBG pO2 30 VBG HCO3 25 VBG O2 Saturation 48.0 VBG Base Excess 0.4 Sodium 136 Potassium 3.7 Chloride 98 Carbon Dioxide 21 L Anion Gap 21 H BUN 54 H Creatinine 3.15 H Estim Creat Clear Calc 23.0 Estimated GFR 15 POC Glucose 203 H Random Glucose 222 H Calcium 8.9 Phosphorus 4.2 Magnesium 2.2 Total Bilirubin AST ALT Alkaline Phosphatase Troponin I High Sens B-Natriuretic Peptide Total Protein Albumin 3.6 TSH Urine Color Urine Appearance Urine pH Ur Specific [place] Urine Protein Urine Glucose (UA) Urine Ketones Urine Blood Urine Nitrite Ur Leukocyte Esterase Urine RBC Urine WBC Ur Squamous Epith Cells Urine Bacteria Hyaline Casts Stool Occult Blood Proteinase 3 (PR3) Ab Myeloperoxidase Ab Complement C3 Complement C4 Free Ellerbe LC, Quant Free Lambda LC, Quant Free [place]/Lambda Ratio COVID-19 (DENY) COVID-19 Clin Com Hep Bs Antigen Hep Bs Antibody Hep B Core Total Ab Hepatitis C Ab (EIA) Blood Type Antibody Screen Crossmatch 0711/01/22 11/01/22 11:42 16:19 20:15 WBC RBC Hgb Hct MCV MCH MCHC RDW Plt Count MPV Immature Gran % (Auto) Neut % (Auto) Lymph % (Auto) Park % (Auto) Eos % (Auto) Baso % (Auto) Lymph # (Auto) Park # (Auto) Eos # (Auto) Baso # (Auto) Abs Immat Gran (auto) Absolute Neuts (auto) Absolute Nucleated RBC Nucleated RBC % (auto) Smear Tech's Comments PT INR O2 Saturation ABG pH at Pt Temp ABG pCO2 at Pt Temp ABG pO2 at Pt Temp ABG HCO3 ABG Base Excess (Actual) VBG pH VBG pCO2 VBG pO2 VBG HCO3 VBG O2 Saturation VBG Base Excess Sodium Potassium Chloride Carbon Dioxide Anion Gap BUN Creatinine Estim Creat Clear Calc Estimated GFR POC Glucose 266 H 271 H 270 H Random Glucose Calcium Phosphorus Magnesium Total Bilirubin AST ALT Alkaline Phosphatase Troponin I High Sens B-Natriuretic Peptide Total Protein Albumin TSH Urine Color Urine Appearance Urine pH Ur Specific [place] Urine Protein Urine Glucose (UA) Urine Ketones Urine Blood Urine Nitrite Ur Leukocyte Esterase Urine RBC Urine WBC Ur Squamous Epith Cells Urine Bacteria Hyaline Casts Stool Occult Blood Proteinase 3 (PR3) Ab Myeloperoxidase Ab Complement C3 Complement C4 Free Ellerbe LC, Quant Free Lambda LC, Quant Free [place]/Lambda Ratio COVID-19 (DENY) COVID-19 Clin Com Hep Bs Antigen Hep Bs Antibody Hep B Core Total Ab Hepatitis C Ab (EIA) Blood Type Antibody Screen Crossmatch 11/02/22 11/02/22 11/02/22 04:37 04:41 04:41 WBC 12.4 H RBC 3.18 L Hgb 8.0 L Hct 25.5 L MCV 80.2 MCH 25.2 L MCHC 31.4 RDW 14.9 Plt Count 163 MPV 11.8 Immature Gran % (Auto) 0.5 H Neut % (Auto) 79.9 H Lymph % (Auto) 6.8 L Park % (Auto) 8.2 Eos % (Auto) 4.4 H Baso % (Auto) 0.2 Lymph # (Auto) 0.9 L [place] # (Auto) 1.0 Eos # (Auto) 0.6 H Baso # (Auto) 0.0 Abs Immat Gran (auto) 0.06 H Absolute Neuts (auto) 9.9 H Absolute Nucleated RBC 0.000 Nucleated RBC % (auto) 0.0 Smear Tech's Comments PT INR O2 Saturation ABG pH at Pt Temp ABG pCO2 at Pt Temp ABG pO2 at Pt Temp ABG HCO3 ABG Base Excess (Actual) VBG pH 7.51 H VBG pCO2 34 VBG pO2 43 VBG HCO3 27 H VBG O2 Saturation 79.0 VBG Base Excess 4.3 Sodium 139 Potassium 3.7 Chloride 101 Carbon Dioxide 21 L Anion Gap 21 H BUN 54 H Creatinine 2.82 H Estim Creat Clear Calc 25.2 Estimated GFR 17 POC Glucose Random Glucose 179 H Calcium 8.5 Phosphorus 3.2 Magnesium 2.1 Total Bilirubin AST ALT Alkaline Phosphatase Troponin I High Sens B-Natriuretic Peptide Total Protein Albumin 3.0 L TSH Urine Color Urine Appearance Urine pH Ur Specific [place] Urine Protein Urine Glucose (UA) Urine Ketones Urine Blood Urine Nitrite Ur Leukocyte Esterase Urine RBC Urine WBC Ur Squamous Epith Cells Urine Bacteria Hyaline Casts Stool Occult Blood Proteinase 3 (PR3) Ab Myeloperoxidase Ab Complement C3 Complement C4 Free Ellerbe LC, Quant Free Lambda LC, Quant Free [place]/Lambda Ratio COVID-19 (DENY) COVID-19 Clin Com Hep Bs Antigen Hep Bs Antibody Hep B Core Total Ab Hepatitis C Ab (EIA) Blood Type Antibody Screen Crossmatch 11/02/22 11/02/22 11/02/22 07:22 11:12 11:24 WBC RBC Hgb Hct MCV MCH MCHC RDW Plt Count MPV Immature Gran % (Auto) Neut % (Auto) Lymph % (Auto) Park % (Auto) Eos % (Auto) Baso % (Auto) Lymph # (Auto) Park # (Auto) Eos # (Auto) Baso # (Auto) Abs Immat Gran (auto) Absolute Neuts (auto) Absolute Nucleated RBC Nucleated RBC % (auto) Smear Tech's Comments PT INR O2 Saturation ABG pH at Pt Temp ABG pCO2 at Pt Temp ABG pO2 at Pt Temp ABG HCO3 ABG Base Excess (Actual) VBG pH 7.46 H VBG pCO2 35 VBG pO2 49 VBG HCO3 25 VBG O2 Saturation 81.0 VBG Base Excess 1.8 Sodium Potassium Chloride Carbon Dioxide Anion Gap BUN Creatinine Estim Creat Clear Calc Estimated GFR POC Glucose 176 H 195 H Random Glucose Calcium Phosphorus Magnesium Total Bilirubin AST ALT Alkaline Phosphatase Troponin I High Sens B-Natriuretic Peptide Total Protein Albumin TSH Urine Color Urine Appearance Urine pH Ur Specific [place] Urine Protein Urine Glucose (UA) Urine Ketones Urine Blood Urine Nitrite Ur Leukocyte Esterase Urine RBC Urine WBC Ur Squamous Epith Cells Urine Bacteria Hyaline Casts Stool Occult Blood Proteinase 3 (PR3) Ab Myeloperoxidase Ab Complement C3 Complement C4 Free Ellerbe LC, Quant Free Lambda LC, Quant Free [place]/Lambda Ratio COVID-19 (DENY) COVID-19 Clin Com Hep Bs Antigen Hep Bs Antibody Hep B Core Total Ab Hepatitis C Ab (EIA) Blood Type Antibody Screen Crossmatch 11/02/22 11/02/22 11/03/22 16:00 20:34 04:47 WBC RBC Hgb Hct MCV MCH MCHC RDW Plt Count MPV Immature Gran % (Auto) Neut % (Auto) Lymph % (Auto) Park % (Auto) Eos % (Auto) Baso % (Auto) Lymph # (Auto) Park # (Auto) Eos # (Auto) Baso # (Auto) Abs Immat Gran (auto) Absolute Neuts (auto) Absolute Nucleated RBC Nucleated RBC % (auto) Smear Tech's Comments PT INR O2 Saturation ABG pH at Pt Temp ABG pCO2 at Pt Temp ABG pO2 at Pt Temp ABG HCO3 ABG Base Excess (Actual) VBG pH 7.56 H VBG pCO2 30 VBG pO2 33 VBG HCO3 27 H VBG O2 Saturation 62.0 VBG Base Excess 5.4 Sodium Potassium Chloride Carbon Dioxide Anion Gap BUN Creatinine Estim Creat Clear Calc Estimated GFR POC Glucose 262 H 321 H Random Glucose Calcium Phosphorus Magnesium Total Bilirubin AST ALT Alkaline Phosphatase Troponin I High Sens B-Natriuretic Peptide Total Protein Albumin TSH Urine Color Urine Appearance Urine pH Ur Specific [place] Urine Protein Urine Glucose (UA) Urine Ketones Urine Blood Urine Nitrite Ur Leukocyte Esterase Urine RBC Urine WBC Ur Squamous Epith Cells Urine Bacteria Hyaline Casts Stool Occult Blood Proteinase 3 (PR3) Ab Myeloperoxidase Ab Complement C3 Complement C4 Free Ellerbe LC, Quant Free Lambda LC, Quant Free [place]/Lambda Ratio COVID-19 (DENY) COVID-19 Clin Com Hep Bs Antigen Hep Bs Antibody Hep B Core Total Ab Hepatitis C Ab (EIA) Blood Type Antibody Screen Crossmatch 11/03/22 11/03/22 11/03/22 04:51 04:51 07:20 WBC 12.9 H RBC 3.02 L Hgb 7.6 L Hct 24.1 L MCV 79.8 L MCH 25.2 L MCHC 31.5 RDW 15.5 Plt Count 157 L MPV 12.0 Immature Gran % (Auto) 1.2 H Neut % (Auto) 83.0 H Lymph % (Auto) 7.7 L [place] % (Auto) 6.7 Eos % (Auto) 1.2 Baso % (Auto) 0.2 Lymph # (Auto) 1.0 L [place] # (Auto) 0.9 Eos # (Auto) 0.2 Baso # (Auto) 0.0 Abs Immat Gran (auto) 0.15 H Absolute Neuts (auto) 10.7 H Absolute Nucleated RBC 0.000 Nucleated RBC % (auto) 0.0 Smear Tech's Comments PT INR O2 Saturation ABG pH at Pt Temp ABG pCO2 at Pt Temp ABG pO2 at Pt Temp ABG HCO3 ABG Base Excess (Actual) VBG pH VBG pCO2 VBG pO2 VBG HCO3 VBG O2 Saturation VBG Base Excess Sodium 138 Potassium 3.2 L Chloride 102 Carbon Dioxide 22 Anion Gap 17 BUN 57 H Creatinine 2.70 H Estim Creat Clear Calc 26.3 Estimated GFR 17 POC Glucose 216 H Random Glucose 242 H Calcium 8.6 Phosphorus 2.6 L Magnesium 2.2 Total Bilirubin AST ALT Alkaline Phosphatase Troponin I High Sens B-Natriuretic Peptide Total Protein Albumin 2.9 L TSH Urine Color Urine Appearance Urine pH Ur Specific [place] Urine Protein Urine Glucose (UA) Urine Ketones Urine Blood Urine Nitrite Ur Leukocyte Esterase Urine RBC Urine WBC Ur Squamous Epith Cells Urine Bacteria Hyaline Casts Stool Occult Blood Proteinase 3 (PR3) Ab Myeloperoxidase Ab Complement C3 Complement C4 Free Ellerbe LC, Quant Free Lambda LC, Quant Free [place]/Lambda Ratio COVID-19 (DENY) COVID-19 Clin Com Hep Bs Antigen Hep Bs Antibody Hep B Core Total Ab Hepatitis C Ab (EIA) Blood Type Antibody Screen Crossmatch 11/03/22 11/03/22 11/03/22 11:34 16:14 19:51 WBC RBC Hgb Hct MCV MCH MCHC RDW Plt Count MPV Immature Gran % (Auto) Neut % (Auto) Lymph % (Auto) Park % (Auto) Eos % (Auto) Baso % (Auto) Lymph # (Auto) Park # (Auto) Eos # (Auto) Baso # (Auto) Abs Immat Gran (auto) Absolute Neuts (auto) Absolute Nucleated RBC Nucleated RBC % (auto) Smear Tech's Comments PT INR O2 Saturation ABG pH at Pt Temp ABG pCO2 at Pt Temp ABG pO2 at Pt Temp ABG HCO3 ABG Base Excess (Actual) VBG pH VBG pCO2 VBG pO2 VBG HCO3 VBG O2 Saturation VBG Base Excess Sodium Potassium Chloride Carbon Dioxide Anion Gap BUN Creatinine Estim Creat Clear Calc Estimated GFR POC Glucose 306 H 381 H* 437 H* Random Glucose Calcium Phosphorus Magnesium Total Bilirubin AST ALT Alkaline Phosphatase Troponin I High Sens B-Natriuretic Peptide Total Protein Albumin TSH Urine Color Urine Appearance Urine pH Ur Specific [place] Urine Protein Urine Glucose (UA) Urine Ketones Urine Blood Urine Nitrite Ur Leukocyte Esterase Urine RBC Urine WBC Ur Squamous Epith Cells Urine Bacteria Hyaline Casts Stool Occult Blood Proteinase 3 (PR3) Ab Myeloperoxidase Ab Complement C3 Complement C4 Free Ellerbe LC, Quant Free Lambda LC, Quant Free [place]erbe/Lambda Ratio COVID-19 (DENY) COVID-19 Clin Com Hep Bs Antigen Hep Bs Antibody Hep B Core Total Ab Hepatitis C Ab (EIA) Blood Type Antibody Screen Crossmatch 11/04/22 11/04/22 11/04/22 07:05 07:23 07:23 WBC 14.3 H RBC 3.16 L Hgb 7.8 L Hct 25.4 L MCV 80.4 MCH 24.7 L MCHC 30.7 L RDW 15.9 Plt Count 171 MPV 11.9 Immature Gran % (Auto) 1.2 H Neut % (Auto) 75.8 H Lymph % (Auto) 12.5 L [place] % (Auto) 6.9 Eos % (Auto) 3.2 Baso % (Auto) 0.4 Lymph # (Auto) 1.8 Park # (Auto) 1.0 Eos # (Auto) 0.5 H Baso # (Auto) 0.1 Abs Immat Gran (auto) 0.17 H Absolute Neuts (auto) 10.8 H Absolute Nucleated RBC 0.000 Nucleated RBC % (auto) 0.0 Smear Tech's Comments PT INR O2 Saturation ABG pH at Pt Temp ABG pCO2 at Pt Temp ABG pO2 at Pt Temp ABG HCO3 ABG Base Excess (Actual) VBG pH VBG pCO2 VBG pO2 VBG HCO3 VBG O2 Saturation VBG Base Excess Sodium 138 Potassium 3.4 Chloride 103 Carbon Dioxide 23 Anion Gap 15 BUN 64 H Creatinine 2.47 H Estim Creat Clear Calc 22.7 Estimated GFR 19 POC Glucose 158 H Random Glucose 157 H Calcium 8.6 Phosphorus Magnesium Total Bilirubin AST ALT Alkaline Phosphatase Troponin I High Sens B-Natriuretic Peptide Total Protein Albumin TSH Urine Color Urine Appearance Urine pH Ur Specific [place] Urine Protein Urine Glucose (UA) Urine Ketones Urine Blood Urine Nitrite Ur Leukocyte Esterase Urine RBC Urine WBC Ur Squamous Epith Cells Urine Bacteria Hyaline Casts Stool Occult Blood Proteinase 3 (PR3) Ab Myeloperoxidase Ab Complement C3 Complement C4 Free Ellerbe LC, Quant Free Lambda LC, Quant Free [place]erbe/Lambda Ratio COVID-19 (DENY) COVID-19 Clin Com Hep Bs Antigen Hep Bs Antibody Hep B Core Total Ab Hepatitis C Ab (EIA) Blood Type Antibody Screen Crossmatch 11/04/22 11/04/22 11/04/22 10:54 16:08 20:14 WBC RBC Hgb Hct MCV MCH MCHC RDW Plt Count MPV Immature Gran % (Auto) Neut % (Auto) Lymph % (Auto) Park % (Auto) Eos % (Auto) Baso % (Auto) Lymph # (Auto) Park # (Auto) Eos # (Auto) Baso # (Auto) Abs Immat Gran (auto) Absolute Neuts (auto) Absolute Nucleated RBC Nucleated RBC % (auto) Smear Tech's Comments PT INR O2 Saturation ABG pH at Pt Temp ABG pCO2 at Pt Temp ABG pO2 at Pt Temp ABG HCO3 ABG Base Excess (Actual) VBG pH VBG pCO2 VBG pO2 VBG HCO3 VBG O2 Saturation VBG Base Excess Sodium Potassium Chloride Carbon Dioxide Anion Gap BUN Creatinine Estim Creat Clear Calc Estimated GFR POC Glucose 212 H 264 H 241 H Random Glucose Calcium Phosphorus Magnesium Total Bilirubin AST ALT Alkaline Phosphatase Troponin I High Sens B-Natriuretic Peptide Total Protein Albumin TSH Urine Color Urine Appearance Urine pH Ur Specific [place] Urine Protein Urine Glucose (UA) Urine Ketones Urine Blood Urine Nitrite Ur Leukocyte Esterase Urine RBC Urine WBC Ur Squamous Epith Cells Urine Bacteria Hyaline Casts Stool Occult Blood Proteinase 3 (PR3) Ab Myeloperoxidase Ab Complement C3 Complement C4 Free Ellerbe LC, Quant Free Lambda LC, Quant Free [place]/Lambda Ratio COVID-19 (DENY) COVID-19 Clin Com Hep Bs Antigen Hep Bs Antibody Hep B Core Total Ab Hepatitis C Ab (EIA) Blood Type Antibody Screen Crossmatch 08/04/23 08/04/23 08/04/23 06:57 06:57 07:01 WBC 13.6 H RBC 3.26 L Hgb 8.3 L Hct 26.5 L MCV 81.3 MCH 25.5 L MCHC 31.3 RDW 16.3 H Plt Count 158 L MPV 11.3 Immature Gran % (Auto) 1.4 H Neut % (Auto) 75.3 H Lymph % (Auto) 12.0 L [place] % (Auto) 7.4 Eos % (Auto) 3.5 Baso % (Auto) 0.4 Lymph # (Auto) 1.6 Park # (Auto) 1.0 Eos # (Auto) 0.5 H Baso # (Auto) 0.1 Abs Immat Gran (auto) 0.19 H Absolute Neuts (auto) 10.2 H Absolute Nucleated RBC 0.000 Nucleated RBC % (auto) 0.0 Smear Tech's Comments PT INR O2 Saturation ABG pH at Pt Temp ABG pCO2 at Pt Temp ABG pO2 at Pt Temp ABG HCO3 ABG Base Excess (Actual) VBG pH VBG pCO2 VBG pO2 VBG HCO3 VBG O2 Saturation VBG Base Excess Sodium 140 Potassium 3.6 Chloride 106 Carbon Dioxide 23 Anion Gap 15 BUN 59 H Creatinine 2.19 H Estim Creat Clear Calc 25.6 Estimated GFR 22 POC Glucose 158 H Random Glucose 162 H Calcium 8.7 Phosphorus Magnesium Total Bilirubin AST ALT Alkaline Phosphatase Troponin I High Sens B-Natriuretic Peptide Total Protein Albumin TSH Urine Color Urine Appearance Urine pH Ur Specific [place] Urine Protein Urine Glucose (UA) Urine Ketones Urine Blood Urine Nitrite Ur Leukocyte Esterase Urine RBC Urine WBC Ur Squamous Epith Cells Urine Bacteria Hyaline Casts Stool Occult Blood Proteinase 3 (PR3) Ab Myeloperoxidase Ab Complement C3 Complement C4 Free Ellerbe LC, Quant Free Lambda LC, Quant Free Ellerbe/Lambda Ratio COVID-19 (DENY) COVID-19 Clin Com Hep Bs Antigen Hep Bs Antibody Hep B Core Total Ab Hepatitis C Ab (EIA) Blood Type Antibody Screen Crossmatch 11/05/22 11/05/22 11/05/22 10:54 15:32 20:23 WBC RBC Hgb Hct MCV MCH MCHC RDW Plt Count MPV Immature Gran % (Auto) Neut % (Auto) Lymph % (Auto) Park % (Auto) Eos % (Auto) Baso % (Auto) Lymph # (Auto) Park # (Auto) Eos # (Auto) Baso # (Auto) Abs Immat Gran (auto) Absolute Neuts (auto) Absolute Nucleated RBC Nucleated RBC % (auto) Smear Tech's Comments PT INR O2 Saturation ABG pH at Pt Temp ABG pCO2 at Pt Temp ABG pO2 at Pt Temp ABG HCO3 ABG Base Excess (Actual) VBG pH VBG pCO2 VBG pO2 VBG HCO3 VBG O2 Saturation VBG Base Excess Sodium Potassium Chloride Carbon Dioxide Anion Gap BUN Creatinine Estim Creat Clear Calc Estimated GFR POC Glucose 197 H 329 H 388 H* Random Glucose Calcium Phosphorus Magnesium Total Bilirubin AST ALT Alkaline Phosphatase Troponin I High Sens B-Natriuretic Peptide Total Protein Albumin TSH Urine Color Urine Appearance Urine pH Ur Specific [place] Urine Protein Urine Glucose (UA) Urine Ketones Urine Blood Urine Nitrite Ur Leukocyte Esterase Urine RBC Urine WBC Ur Squamous Epith Cells Urine Bacteria Hyaline Casts Stool Occult Blood Proteinase 3 (PR3) Ab Myeloperoxidase Ab Complement C3 Complement C4 Free Ellerbe LC, Quant Free Lambda LC, Quant Free [place]erbe/Lambda Ratio COVID-19 (DENY) COVID-19 Clin Com Hep Bs Antigen Hep Bs Antibody Hep B Core Total Ab Hepatitis C Ab (EIA) Blood Type Antibody Screen Crossmatch 11/06/22 11/06/22 11/06/22 06:02 06:10 07:41 WBC 13.9 H RBC 3.51 L Hgb 8.8 L Hct 29.0 L MCV 82.6 MCH 25.1 L MCHC 30.3 L RDW 16.4 H Plt Count 184 MPV 12.5 H Immature Gran % (Auto) Neut % (Auto) Lymph % (Auto) Park % (Auto) Eos % (Auto) Baso % (Auto) Lymph # (Auto) Park # (Auto) Eos # (Auto) Baso # (Auto) Abs Immat Gran (auto) Absolute Neuts (auto) Absolute Nucleated RBC 0.000 Nucleated RBC % (auto) 0.0 Smear Tech's Comments PT INR O2 Saturation ABG pH at Pt Temp ABG pCO2 at Pt Temp ABG pO2 at Pt Temp ABG HCO3 ABG Base Excess (Actual) VBG pH VBG pCO2 VBG pO2 VBG HCO3 VBG O2 Saturation VBG Base Excess Sodium 140 Potassium 4.4 D Chloride 106 Carbon Dioxide 22 Anion Gap 16 BUN 56 H Creatinine 2.13 H Estim Creat Clear Calc 33.3 Estimated GFR 23 POC Glucose 125 H Random Glucose 131 H Calcium 9.0 Phosphorus Magnesium Total Bilirubin AST ALT Alkaline Phosphatase Troponin I High Sens B-Natriuretic Peptide Total Protein Albumin TSH Urine Color Urine Appearance Urine pH Ur Specific [place] Urine Protein Urine Glucose (UA) Urine Ketones Urine Blood Urine Nitrite Ur Leukocyte Esterase Urine RBC Urine WBC Ur Squamous Epith Cells Urine Bacteria Hyaline Casts Stool Occult Blood Proteinase 3 (PR3) Ab Myeloperoxidase Ab Complement C3 Complement C4 Free Ellerbe LC, Quant Free Lambda LC, Quant Free [place]/Lambda Ratio COVID-19 (DENY) COVID-19 Clin Com Hep Bs Antigen Hep Bs Antibody Hep B Core Total Ab Hepatitis C Ab (EIA) Blood Type Antibody Screen Crossmatch 11/06/22 11/06/22 11/06/22 11:51 16:22 20:39 WBC RBC Hgb Hct MCV MCH MCHC RDW Plt Count MPV Immature Gran % (Auto) Neut % (Auto) Lymph % (Auto) Park % (Auto) Eos % (Auto) Baso % (Auto) Lymph # (Auto) Park # (Auto) Eos # (Auto) Baso # (Auto) Abs Immat Gran (auto) Absolute Neuts (auto) Absolute Nucleated RBC Nucleated RBC % (auto) Smear Tech's Comments PT INR O2 Saturation ABG pH at Pt Temp ABG pCO2 at Pt Temp ABG pO2 at Pt Temp ABG HCO3 ABG Base Excess (Actual) VBG pH VBG pCO2 VBG pO2 VBG HCO3 VBG O2 Saturation VBG Base Excess Sodium Potassium Chloride Carbon Dioxide Anion Gap BUN Creatinine Estim Creat Clear Calc Estimated GFR POC Glucose 184 H 260 H 244 H Random Glucose Calcium Phosphorus Magnesium Total Bilirubin AST ALT Alkaline Phosphatase Troponin I High Sens B-Natriuretic Peptide Total Protein Albumin TSH Urine Color Urine Appearance Urine pH Ur Specific [place] Urine Protein Urine Glucose (UA) Urine Ketones Urine Blood Urine Nitrite Ur Leukocyte Esterase Urine RBC Urine WBC Ur Squamous Epith Cells Urine Bacteria Hyaline Casts Stool Occult Blood Proteinase 3 (PR3) Ab Myeloperoxidase Ab Complement C3 Complement C4 Free Ellerbe LC, Quant Free Lambda LC, Quant Free [place]be/Lambda Ratio COVID-19 (DENY) COVID-19 Clin Com Hep Bs Antigen Hep Bs Antibody Hep B Core Total Ab Hepatitis C Ab (EIA) Blood Type Antibody Screen Crossmatch 11/07/22 11/07/22 11/07/22 07:23 11:38 16:38 WBC RBC Hgb Hct MCV MCH MCHC RDW Plt Count MPV Immature Gran % (Auto) Neut % (Auto) Lymph % (Auto) Park % (Auto) Eos % (Auto) Baso % (Auto) Lymph # (Auto) Park # (Auto) Eos # (Auto) Baso # (Auto) Abs Immat Gran (auto) Absolute Neuts (auto) Absolute Nucleated RBC Nucleated RBC % (auto) Smear Tech's Comments PT INR O2 Saturation ABG pH at Pt Temp ABG pCO2 at Pt Temp ABG pO2 at Pt Temp ABG HCO3 ABG Base Excess (Actual) VBG pH VBG pCO2 VBG pO2 VBG HCO3 VBG O2 Saturation VBG Base Excess Sodium Potassium Chloride Carbon Dioxide Anion Gap BUN Creatinine Estim Creat Clear Calc Estimated GFR POC Glucose 154 H 239 H 281 H Random Glucose Calcium Phosphorus Magnesium Total Bilirubin AST ALT Alkaline Phosphatase Troponin I High Sens B-Natriuretic Peptide Total Protein Albumin TSH Urine Color Urine Appearance Urine pH Ur Specific [place] Urine Protein Urine Glucose (UA) Urine Ketones Urine Blood Urine Nitrite Ur Leukocyte Esterase Urine RBC Urine WBC Ur Squamous Epith Cells Urine Bacteria Hyaline Casts Stool Occult Blood Proteinase 3 (PR3) Ab Myeloperoxidase Ab Complement C3 Complement C4 Free Ellerbe LC, Quant Free Lambda LC, Quant Free [place]/Lambda Ratio COVID-19 (DENY) COVID-19 Clin Com Hep Bs Antigen Hep Bs Antibody Hep B Core Total Ab Hepatitis C Ab (EIA) Blood Type Antibody Screen Crossmatch 11/07/22 11/08/22 11/08/22 20:38 07:53 11:44 WBC RBC Hgb Hct MCV MCH MCHC RDW Plt Count MPV Immature Gran % (Auto) Neut % (Auto) Lymph % (Auto) Park % (Auto) Eos % (Auto) Baso % (Auto) Lymph # (Auto) Park # (Auto) Eos # (Auto) Baso # (Auto) Abs Immat Gran (auto) Absolute Neuts (auto) Absolute Nucleated RBC Nucleated RBC % (auto) Smear Tech's Comments PT INR O2 Saturation ABG pH at Pt Temp ABG pCO2 at Pt Temp ABG pO2 at Pt Temp ABG HCO3 ABG Base Excess (Actual) VBG pH VBG pCO2 VBG pO2 VBG HCO3 VBG O2 Saturation VBG Base Excess Sodium Potassium Chloride Carbon Dioxide Anion Gap BUN Creatinine Estim Creat Clear Calc Estimated GFR POC Glucose 277 H 110 183 H Random Glucose Calcium Phosphorus Magnesium Total Bilirubin AST ALT Alkaline Phosphatase Troponin I High Sens B-Natriuretic Peptide Total Protein Albumin TSH Urine Color Urine Appearance Urine pH Ur Specific [place] Urine Protein Urine Glucose (UA) Urine Ketones Urine Blood Urine Nitrite Ur Leukocyte Esterase Urine RBC Urine WBC Ur Squamous Epith Cells Urine Bacteria Hyaline Casts Stool Occult Blood Proteinase 3 (PR3) Ab Myeloperoxidase Ab Complement C3 Complement C4 Free Ellerbe LC, Quant Free Lambda LC, Quant Free [place]/Lambda Ratio COVID-19 (DENY) COVID-19 Clin Com Hep Bs Antigen Hep Bs Antibody Hep B Core Total Ab Hepatitis C Ab (EIA) Blood Type Antibody Screen Crossmatch 11/08/22 11/08/22 16:03 18:55 WBC RBC Hgb Hct MCV MCH MCHC RDW Plt Count MPV Immature Gran % (Auto) Neut % (Auto) Lymph % (Auto) Park % (Auto) Eos % (Auto) Baso % (Auto) Lymph # (Auto) Park # (Auto) Eos # (Auto) Baso # (Auto) Abs Immat Gran (auto) Absolute Neuts (auto) Absolute Nucleated RBC Nucleated RBC % (auto) Smear Tech's Comments PT INR O2 Saturation ABG pH at Pt Temp ABG pCO2 at Pt Temp ABG pO2 at Pt Temp ABG HCO3 ABG Base Excess (Actual) VBG pH VBG pCO2 VBG pO2 VBG HCO3 VBG O2 Saturation VBG Base Excess Sodium Potassium Chloride Carbon Dioxide Anion Gap BUN Creatinine Estim Creat Clear Calc Estimated GFR POC Glucose 263 H 256 H Random Glucose Calcium Phosphorus Magnesium Total Bilirubin AST ALT Alkaline Phosphatase Troponin I High Sens B-Natriuretic Peptide Total Protein Albumin TSH Urine Color Urine Appearance Urine pH Ur Specific [place] Urine Protein Urine Glucose (UA) Urine Ketones Urine Blood Urine Nitrite Ur Leukocyte Esterase Urine RBC Urine WBC Ur Squamous Epith Cells Urine Bacteria Hyaline Casts Stool Occult Blood Proteinase 3 (PR3) Ab Myeloperoxidase Ab Complement C3 Complement C4 Free Ellerbe LC, Quant Free Lambda LC, Quant Free [place]/Lambda Ratio COVID-19 (DENY) COVID-19 Clin Com Hep Bs Antigen Hep Bs Antibody Hep B Core Total Ab Hepatitis C Ab (EIA) Blood Type Antibody Screen Crossmatch Airway Mallampati Class: IV Neck ROM: Full Heart: RRR Lungs: CTA Assessment and Plan Final Anesthetic Review Family History of Problems with Anesthesia: No History of Problems with Anesthesia: No ASA Class: IV and Emergency Final Preanesthetic Review: Meds/Allgs Chart Reviewed, Consent Obtained/Reviewed and Anes Risks/Benef Reviewed Patient Risk: Intermediate Anesthetic Plan Anesthetic Plan: GA Disposition: Standard PACU
--- NOTE | 2022-11-08 20:58 | PC.NURSE ---
2058 report given to sales support specialist, harmeet muller, patient going to o.r. delay related iv access issues.
--- NOTE | 2022-11-08 21:45 | W.PM.OPN ---
Operative Note Operative Note Date of Service: 11/08/22 Narrative: PreOperative Diagnosis: left hydronephrosis Post Operative Diagnosis: left hydronephrosis, right redundant ureter Procedure: bilateral retrogrades, bilateral stent placement Surgeon: Dr Juan Silveira Anesthesia: Indications for procedure: LEO failing to improve with medical therapy Procedure: After informed consent was verified the patient was brought to the operating room and placed in a supine position. Anesthesia was administered per protocol. The patient was placed in modified dorsal lithotomy position and prepped and draped in a sterile fashion. A safety pause time-out was performed. Laterality of procedure and antibiotics were confirmed, appropriate imaging was available A 22 Turkmen cystoscope was introduced per urethra. No abnormality was noted of urethra or bladder. Both ureteric orifices were seen in a normal position. The right ureter was cannulated with an open ended catheter and a retrograde examination was performed. redundancy of ureter seen with narrowing of ureter . A Sensor guidewire was placed under fluoroscopy and a good coil was seen within the renal pelvis. A 6 x 26cm double J stent was advanced over the wire and up to the level of the renal pelvis under fluoroscopic and direct visualization. The stent was seen with appropriate coil within the renal pelvis and in the bladder after deployment. The left ureter was cannulated with an open ended catheter and a retrograde examination was performed. hydroureteronephrosis to mid ureter at area of crossing vessel. A Sensor guidewire was placed under fluoroscopy and a good coil was seen within the renal pelvis. A 6 x 26cm double J stent was advanced over the wire and up to the level of the renal pelvis under fluoroscopic and direct visualization. The stent was seen with appropriate coil within the renal pelvis and in the bladder after deployment. The patient tolerated the procedure well and was transferred in a stable condition to the recovery area. Pathology: Drains: as above
--- NOTE | 2022-11-08 22:37 | PC.NURSE ---
pt back from surgery, gibson cath draining bloody urine
[2022-11-08 22:48] LABS: Glucose, Whole Blood 184 mg/dL (60-115)
[2022-11-08] MEDS: Acetaminophen 1,000 MG/100 ML PIGGYBACK 400 MG IV (22:59)
[2022-11-08] MEDS: Melatonin 3 MG TABLET 6 MG PO (23:02)
[2022-11-08] MEDS: Atorvastatin Calcium 10 MG TABLET PO (23:03)
[2022-11-08] MEDS: Latanoprost 0.005 % Ophth Sol 2.5 ML DROPS 1 DROP EYE-BOTH (23:04)
[2022-11-08] MEDS: Insulin Glargine,Hum.rec.anlog 100 UNIT/ML 10 ML VIAL 10 UNIT SUBCUT (23:07)
[2022-11-09] VITALS: BP 128/55; PULSE 73; RESP 16; TEMP 36.1; O2SAT 100
[2022-11-09] MEDS: 0.9 % Sodium Chloride Flush 3 ML SYRINGE IVFLUSH ×3 (00:44→17:02)
[2022-11-09 04:00] VITALS: BP 149/67; PULSE 65; RESP 15; TEMP 36.1; O2SAT 98
--- NOTE | 2022-11-09 04:31 | PC.NURSE ---
0100; Patient had bilateral retrogrades, bilateral stent placement earlier, came back to the floor about 1030pm. Turner with bloody urine noted, has scheduled subcut heparin for 0200, Dr. Atkinson notified. hold heparin per .
[2022-11-09] MEDS: Levothyroxine Sodium 175 MCG TABLET PO (05:20)
[2022-11-09 06:00] VITALS: BMI 43.4
[2022-11-09 07:25] VITALS: BP 120/65; PULSE 67; RESP 20; TEMP 36.1; O2SAT 95
[2022-11-09 07:25] LABS: Glucose, Whole Blood 146 mg/dL (60-115)
--- NOTE | 2022-11-09 08:40 | MHC.CM.PN ---
CM RECEIVED CALL BACK FROM MARIA ELENA AT DR MAKCENZIE'S OFFICE, MARIA ELENA REPORTS PT WILL NEED A FOLLOW-UP APPT W/DR. MACKENZIE TO DISCUSS WHY IT IS MEDICALLY NECESSARY FOR PT TO HAVE BARIATRIC BED D/T STRICT MEDICARE GUIDELINES, MARIA ELENA REPORTS APPT CAN BE VIA PHONE W/PT PRESENT AND NEXT AVAILABLE AND BOOKED APPT IS 12/20 AT 3:15PM, PT'S MIKAELA KRAMER WILL BE NOTIFIED OF APPT AND APPT PLACED IN DCP.
[2022-11-09] MEDS: polyethylene glycoL 3350 17 GM POWD.PACK PO (09:10)
[2022-11-09] MEDS: Bumetanide 1 MG/4 ML VIAL 2 MG IVPUSH (09:11)
[2022-11-09] MEDS: Artificial Tears 15 ML DROPS 1 DROP EYE-BOTH ×2 (09:11→21:16)
[2022-11-09] MEDS: Magnesium Oxide 400 MG TABLET 200 MG PO (09:11)
[2022-11-09] MEDS: predniSONE 5 MG TABLET 15 MG PO (09:11)
[2022-11-09] MEDS: Heparin Sodium,Porcine 5,000 UNIT/ML VIAL 5000 UNIT SUBCUT ×2 (09:12→19:06)
[2022-11-09] MEDS: prednisoLONE Acetate 1 % Oph Susp 5 ML DRPBTL 1 DROP EYE-RIGHT (09:12)
[2022-11-09] MEDS: Nystatin Powder 15 GM BOTTLE 1 APPL TOPICAL ×2 (09:12→21:13)
[2022-11-09] MEDS: timoloL maleate 0.5 % Oph Sol 5 ML DRBTL 1 DROP EYE-RIGHT ×2 (09:12→21:17)
--- NOTE | 2022-11-09 09:12 | HO.POSTANES ---
Post Anesthesia Evaluation Post Anesthesia Evaluation Date of Service: 11/09/22 Vital Signs: Vital Signs Temp Pulse Resp BP Pulse Ox O2 Del Method 11/09/22 07:25 97.0 F 67 20 120/65 95 Room Air 11/09/22 04:00 96.9 F 65 15 149/67 H 98 Room Air 11/09/22 00:00 96.9 F 73 16 128/55 L 100 Room Air 11/08/22 22:11 97.7 F 79 18 135/55 L 98 Room Air 11/08/22 22:06 80 18 135/49 L 100 Room Air 11/08/22 22:23 79 16 134/54 L 98 Room Air 11/08/22 22:01 81 18 134/54 L 100 Room Air 11/08/22 21:56 97.2 F 82 16 135/56 L 100 Room Air Anesthesia: General Mental Status: Awake Pain Control: Satisfactory Nausea/Vomiting: None Hydration: Adequate Anesthesia-Related Issues: No Anes. Related Issues
--- NOTE | 2022-11-09 09:19 | MHC.CM.PN ---
CM CONT'S TO AWAIT RETIREMENT BED OFFER, SNF REFERRAL UPDATED AND EXPANDED, CM WILL CONT TO FOLLOW DC NEEDS.
[2022-11-09] MEDS: Insulin Glargine,Hum.rec.anlog 100 UNIT/ML 10 ML VIAL 10 UNIT SUBCUT ×2 (09:30→21:12)
[2022-11-09 10:08] LABS: Hematocrit 29.5 % (37.0-47.0); Hemoglobin 9.1 g/dl (12.0-16.0); Mean Corpuscular HGB Conc 30.8 g/dl (31.0-35.0); Mean Corpuscular Hemoglobin 25.3 pg (27.0-33.0); Mean Corpuscular Volume 82.2 fL (80.0-98.0); Mean Platelet Volume 12.5 fL (9.4-12.3); Platelet Count 163 X10*3/uL (160-400); Red Blood Count 3.59 X10*6/uL (4.20-5.50); Red Cell Distribution Width 16.9 % (11.0-16.0); White Blood Count 16.6 X10*3/uL (4.8-10.8)
[2022-11-09 10:20] LABS: Anion Gap 14 (12-20); Blood Urea Nitrogen 59 mg/dL (9-16); Calcium 8.7 mg/dL (8.4-10.2); Carbon Dioxide 28 mmol/L (22-29); Chloride 100 mmol/L (96-108); Estimated Glomerular Filt Rate 21; Glucose Random 331 mg/dL (60-115); Sodium 138 mmol/L (135-145)
--- NOTE | 2022-11-09 10:48 | PM.PNNEP ---
Subjective Subjective Date of Service: 11/10/22 Principal diagnosis: Acute kidney injury, bradycardia, decompensated heart failure. Interval history: Events noted. Status post cystoscopy in left-sided stent placement Nonoliguric Physical Exam Vital Signs: Vital Signs: Last Vital Signs Temp 97.0 F 11/09/22 07:25 Pulse 67 11/09/22 07:25 Resp 20 11/09/22 07:25 BP 120/65 11/09/22 07:25 Pulse Ox 95 11/09/22 07:25 O2 Del Method Room Air 11/09/22 07:25 O2 Flow Rate 97 11/05/22 03:24 FiO2 28 11/02/22 07:50 Oxygen Flow Rate 4 10/27/22 20:01 BMI result Body Mass Index 43.4 Const: General: alert and awake HEENT: Head: Yes normocephalic and Yes atraumatic Neck: Neck: Yes supple Resp: Auscultation: diminished lung sounds Cardio: Rate: bradycardic Heart sounds: S1 normal heart sound present and S2 normal heart sound present GI: Palpation (GI): Soft to palpation and nontender Extrem: General: Yes pedal edema Objective Data Labs 11/09/22 10:00 11/09/22 10:00 Labs: Laboratory Results - last 24 hr 11/08/22 11/08/22 11/08/22 11:44 16:03 18:55 WBC RBC Hgb Hct MCV MCH MCHC RDW Plt Count MPV Absolute Nucleated RBC Nucleated RBC % (auto) Sodium Potassium Chloride Carbon Dioxide Anion Gap BUN Creatinine Estim Creat Clear Calc Estimated GFR POC Glucose 183 H 263 H 256 H Random Glucose Calcium 11/08/22 11/09/22 11/09/22 22:43 07:06 10:00 WBC 16.6 H RBC 3.59 L Hgb 9.1 L Hct 29.5 L MCV 82.2 MCH 25.3 L MCHC 30.8 L RDW 16.9 H Plt Count 163 MPV 12.5 H Absolute Nucleated RBC 0.000 Nucleated RBC % (auto) 0.0 Sodium Potassium Chloride Carbon Dioxide Anion Gap BUN Creatinine Estim Creat Clear Calc Estimated GFR POC Glucose 184 H 146 H Random Glucose Calcium 11/09/22 10:00 WBC RBC Hgb Hct MCV MCH MCHC RDW Plt Count MPV Absolute Nucleated RBC Nucleated RBC % (auto) Sodium 138 Potassium 4.0 Chloride 100 Carbon Dioxide 28 Anion Gap 14 BUN 59 H Creatinine 2.29 H Estim Creat Clear Calc 30.0 Estimated GFR 21 POC Glucose Random Glucose 331 H Calcium 8.7 Microbiology Microbiology Results: Microbiology 10/31/22 09:09 Blood - Venous Blood Culture - Final No growth after 5 days. 10/31/22 09:13 Blood - Venous Blood Culture - Final No growth after 5 days. 10/28/22 Unknown Urine clean catch - Urine malik top Urine Culture - Final Escherichia coli Procedures Date of Service Date of Service: 11/10/22 Assessment & Plan Assessment and plan (1) LEO (acute kidney injury): Status: Acute (2) Hyperkalemia: Status: Acute (3) (HFpEF) heart failure with preserved ejection fraction: Status: Acute (4) CKD (chronic kidney disease) stage 3, GFR 30-59 ml/min: Status: Acute Plan multifactorial LEO: -congestive nephrosarca c/w cardio renal syndrome -acute tubular injury -obstructive uropathy CT scan showed mild left hydronephrosis per urology c/w ascending left pyelonephristis Status post cystoscopy bilateral retrograde and left-sided stent placement on 11/08/2022 known CKD baseline Scr ~ 1.2 mg/dl h/o HFpEF REC renal function is stable No need for further dialysis. Time Spent With Patient Time: Total time managing care of this patient today ____ minutes. Progress Note: Quality Stroke Does the patient have a stroke diagnosis?: No
[2022-11-09 11:07] LABS: Glucose, Whole Blood 315 mg/dL (60-115)
[2022-11-09 11:09] VITALS: BP 100/70; PULSE 67; RESP 16; TEMP 36; O2SAT 95
[2022-11-09] MEDS: Insulin Lispro 100 UNIT/ML 3 ML VIAL SUBCUT ×3 (12:28→21:12)
--- NOTE | 2022-11-09 13:31 | MHC.CM.PN ---
EMR REVIEWED, PER HOSPITALIST PT NOT MEDICALLY CLEARED FOR D/C D/T ADVANCED KIDNEY FAILURE, BILATERAL STENTS PLACED LATE WEDNESDAY 11/08, ANTIC PT TO BE CLEARED IN 1-2 DAYS. CM MET W/PT TO CONFIRM DATE AND TIME OF TELEHEALTH APPT W/DR. MACKENZIE 12/20 AT 3:15PM. PT'S GDTR NO LONGER AT BEDSIDE HOWEVER PT IS A&O, CM DISCUSSED DISPO W/PT AND PT DOES REPORTS SHE BELIEVES FAMILY CAN PROVIDE CARE AND SHE ALSO HAS ASSISTANCE FROM A NEPHEW WHO WORKS HERE IN [facility], THEREFORE PLAN CONTS TO BE SNF CARE FOR 1-2MOS PRIOR TO D/C HOME W/FAMILY SUPPORT. PT'S VNA COMFORT PLUS UPDATED VIA [employer].
[2022-11-09 15:11] VITALS: BP 135/66; PULSE 80; RESP 20; TEMP 36.7; O2SAT 98
[2022-11-09 16:06] LABS: Glucose, Whole Blood 430 mg/dL (60-115)
--- NOTE | 2022-11-09 16:51 | P.PNIM_ITS ---
Subjective Subjective Date of Service: 11/09/22 Interval History: follow up for CHF, renal failure Review of Systems denies new c/o no sob or chest pain Physical Exam Vital Signs: Vital Signs: Last Vital Signs Temp 98.0 F 11/09/22 15:11 Pulse 80 11/09/22 15:11 Resp 20 11/09/22 15:11 BP 135/66 11/09/22 15:11 Pulse Ox 98 11/09/22 15:11 O2 Del Method Room Air 11/09/22 15:11 O2 Flow Rate 97 11/05/22 03:24 FiO2 28 11/02/22 07:50 Oxygen Flow Rate 4 10/27/22 20:01 BMI result Body Mass Index 43.4 Appearing in no acute distress ?lung sounds are clear to auscultation ?heart regular rate rhythm, clear? S1, S2 ?positive bowel sounds, abdomen is soft, nontender ?neuro patient is alert x3, no focal deficits Objective Data Active Medications Acetaminophen (Acetaminophen 325 Mg Tablet) 650 mg PO Q6H PRN PRN Reason: Pain, Mild (Pain Scale 1-3) Last Admin: 11/03/22 09:27 Dose: 650 mg Documented By: CHAUNCEY Albuterol/Ipratropium (Albuterol/Iprat 2.5/0.5mg 3 Ml Ampul.Neb) 3 ml INHALE Q6 H PRN PRN Reason: shortness of breath, wheezing Last Admin: 11/06/22 17:19 Dose: 3 ml Documented By: SPARKLE Artificial Tears (Artificial Tears 15 Ml Drops) 1 drop EYE-BOTH BID [facility] Last Admin: 11/09/22 09:11 Dose: 1 drop Documented By: MATHIEU Atorvastatin Calcium (Atorvastatin Calcium 10 Mg Tablet) 10 mg PO BEDTIME [facility] Last Admin: 11/08/22 23:03 Dose: 10 mg Documented By: RONNY Bisacodyl (Bisacodyl 10 Mg Supp.Rect) 10 mg ME DAILY PRN PRN Reason: Constipation Bumetanide (Bumetanide 1 Mg Tablet) 2 mg PO BID@0800,1700 [facility]; Protocol Dextrose (Dextrose 50 % 25 Gm/50 Ml Syringe) 25 gm IVPUSH Q15M PRN; Protocol PRN Reason: per Hypoglycemia Standing Ord. Docusate Sodium (Docusate Sodium 100 Mg Capsule) 100 mg PO DAILY PRN PRN Reason: Constipation Glucose (Glucose Gel 15 Gm Gel..Gram.) 15 gm PO Q15M PRN; Protocol PRN Reason: per Hypoglycemia Standing Ord. Heparin Sodium (Porcine) (Heparin Sodium,Porcine 5,000 Unit/Ml Vial) 5,000 unit SUBCUT Q8H [facility] Last Admin: 11/09/22 09:12 Dose: 5,000 unit Documented By: MATHIEU Insulin Glargine (Insulin Glargine,Hum.Rec.Anlog 100 Unit/Ml 10 Ml Vial) 10 unit SUBCUT BID [facility] Last Admin: 11/09/22 09:30 Dose: 10 unit Documented By: MATHIEU Insulin Human Lispro (Insulin Lispro 100 Unit/Ml 3 Ml Vial) 0 unit SUBCUT QIDACHS [facility]; Protocol Last Admin: 11/09/22 12:28 Dose: 8 unit Documented By: MATHIEU Latanoprost (Latanoprost 0.005 % Ophth Mona 2.5 Ml Drops) 1 drop EYE-BOTH BEDTIME [facility] Last Admin: 11/08/22 23:04 Dose: 1 drop Documented By: RONNY Levothyroxine Sodium (Levothyroxine Sodium 175 Mcg Tablet) 175 mcg PO DAILY@0600 [facility] Last Admin: 11/09/22 05:20 Dose: 175 mcg Documented By: MÓNICA Magnesium Oxide (Magnesium Oxide 400 Mg Tablet) 200 mg PO DAILY [facility] Last Admin: 11/09/22 09:11 Dose: 200 mg Documented By: MATHIEU Melatonin (Melatonin 3 Mg Tablet) 6 mg PO BEDTIME [facility] Last Admin: 11/08/22 23:02 Dose: 6 mg Documented By: RONNY Pt Own ([Calquence ( Acalabrutinib Mal)] 100 Mg Tab 100 mg PO BID [facility] Last Admin: 11/09/22 09:10 Dose: 100 mg Documented By: MATHIEU Non-Formulary Medication (Brinzolamide-Brimonidine [Simbrinza]) 1 drop EYE- RIGHT BID [facility] Nystatin (Nystatin Powder 15 Gm Bottle) 1 appl TOPICAL BID [facility]; Protocol Last Admin: 11/09/22 09:12 Dose: 1 appl Documented By: MATHIEU Pharmacy Consult (Consult Rx Perform Med Rec) 1 each MISCELLANE ONCE PRN PRN Reason: Consult order Polyethylene Glycol (Polyethylene Glycol 3350 17 Gm Powd.Pack) 17 gm PO BID [facility] Last Admin: 11/09/22 09:10 Dose: 17 gm Documented By: MATHIEU Prednisolone Acetate (Prednisolone Acetate 1 % Oph Susp 5 Ml Drpbtl) 1 drop EYE-RIGHT DAILY [facility] Last Admin: 11/09/22 09:12 Dose: 1 drop Documented By: MATHIEU Prednisone (Prednisone 5 Mg Tablet) 15 mg PO DAILY [facility] Last Admin: 11/09/22 09:11 Dose: 15 mg Documented By: MATHIEU Senna (Sennosides 8.6 Mg Tablet) 17.2 mg PO DAILY PRN PRN Reason: Constipation Sodium Chloride (0.9 % Sodium Chloride Flush 3 Ml Syringe) 3 ml IVFLUSH QSHIFT [facility] Last Admin: 11/09/22 09:10 Dose: 3 ml Documented By: MATHIEU Timolol Maleate (Timolol Maleate 0.5 % Oph Mona 5 Ml Drbtl) 1 drop EYE-RIGHT BID [facility] Last Admin: 11/09/22 09:12 Dose: 1 drop Documented By: MATHIEU Labs 11/09/22 10:00 11/09/22 10:00 Labs: Laboratory Results - last 24 hr 11/08/22 11/08/22 11/09/22 18:55 22:43 07:06 MCV MCH MCHC RDW Plt Count MPV Absolute Nucleated RBC Nucleated RBC % (auto) Anion Gap Estim Creat Clear Calc Estimated GFR POC Glucose 256 H 184 H 146 H Random Glucose Calcium 11/09/22 11/09/22 11/09/22 10:00 10:00 10:51 MCV 82.2 MCH 25.3 L MCHC 30.8 L RDW 16.9 H Plt Count 163 MPV 12.5 H Absolute Nucleated RBC 0.000 Nucleated RBC % (auto) 0.0 Anion Gap 14 Estim Creat Clear Calc 30.0 Estimated GFR 21 POC Glucose 315 H Random Glucose 331 H Calcium 8.7 11/09/22 16:02 MCV MCH MCHC RDW Plt Count MPV Absolute Nucleated RBC Nucleated RBC % (auto) Anion Gap Estim Creat Clear Calc Estimated GFR POC Glucose 430 H* Random Glucose Calcium Assessment and Plan (1) Pyelonephritis: Status: Acute (2) (HFpEF) heart failure with preserved ejection fraction: Status: Acute Plan 72-year-old female with past medical history of CHF, CLL, COPD, comes into the hospital with complaints of shortness of breath found to have CHF exacerbation, LEO, and hyperkalemia.?She was found to have UTI with ESBL E coli sensitive to meropenem.? Developed worsening acute on chronic renal failure with oliguria requiring temporary dialysis catheter and dialysis treatments in ICU? ICU step down patient discussed with Dr. Tesfaye.? She did require respiratory support with bipap but has been weaned. Has LATONYA diagnosed by no apneic episodes reported by publishing editor. While in ICU developed hyperkalemia and uremia and secondarily bradycardia with Wenckebach.? As creatinine has improved, Wenckebach has resolved with very occasional dropped QRS is noted.? Bradycardia has also resolved.? Vitals are now stable and dialysis catheter has been removed.? [place] [facility] [place]. Acute pyelonephritis with left hydronephrosis urine culture ESBL e.coli , on meropenem started on 10/28, plan to complete 10 day course of antibiotics, end date 11/06 s/p b/l ureteral stent placement yesterday. acute diastolic CHF exacerbation. Resolved echo showed normal EF,? Impaired diastolic function, inferior vena cava severely dilated and does not collapse with inspiration suggestive of right heart strain s/p diuresis and dialysis in ICU continue IV bumex 2mg IV BID,will try to adjust to po. ? chronic hypoxic respiratory failure currently on room air patient with history of obstructive sleep apnea currently not on CPAP Mobitz 1 second degree heart block HR initially in 30s/40s improved to 80s/90s with treatment of LEO/CHF. tsh 0.99 metoprolol on hold,s/p dopamine . added cardiology consult . LEO on CKD 3 multifactorial due to cardiorenal syndrome, ATN, obstructive uropathy Status post temporary dialysis catheter and dialysis while in ICU. Dialysis catheter subsequently removed and renal function improving, but not quite back to baseline Nephrology following acute on chronic normocytic anemia r/t acute illness. no evidence of acute blood loss H/H stable hyperkalemia resolved COPD no acute exacerbation continue home inhalers on chronic prednisone - continue home dose diabetes? continue lantus januvia on hold follow POCs, SSI, ADA diet hypothyroidism continue levothyroxine h/o CLL outpatient follow up morbid obesity recommend low-calorie diet. DVT prophylaxis:? Heparin subq dispo: Likely STR/LTC upon dc inpatient need chf -on iv diuretica, i/o monitering,renal function/electrolytes monitering Time Spent With Patient Time: Total time managing care of this patient today ____ minutes. Quality Stroke Does the patient have a stroke diagnosis?: No VTE Prior VTE?: No VTE Risk Level:: Medical - moderate - high VTE Device Contraindication: Treatment Not Indicated VTE Drug Contraindication: N/A - Med Ordered
[2022-11-09] MEDS: Bumetanide 1 MG TABLET 2 MG PO (17:02)
[2022-11-09 19:15] VITALS: BP 121/46; PULSE 78; RESP 20; TEMP 36.7; O2SAT 100
[2022-11-09 19:44] LABS: Glucose, Whole Blood 420 mg/dL (60-115)
[2022-11-09] MEDS: Melatonin 3 MG TABLET 6 MG PO (21:13)
[2022-11-09] MEDS: Atorvastatin Calcium 10 MG TABLET PO (21:13)
[2022-11-09] MEDS: Latanoprost 0.005 % Ophth Sol 2.5 ML DROPS 1 DROP EYE-BOTH (21:16)
--- NOTE | 2022-11-09 23:15 | PC.NURSE ---
MD was notified about blood sugar 430 and 420 , scheduled insulin administered , no additional dose ordered
[2022-11-10] VITALS (7 sets, daily range): BP systolic 116–133; BP diastolic 45–59; PULSE 69–86; RESP 18–20; TEMP 36.1–37.1; O2SAT 94–100; BMI 43.9
[2022-11-10] MEDS: Levothyroxine Sodium 175 MCG TABLET PO (06:09)
[2022-11-10 07:04] LABS: Glucose, Whole Blood 206 mg/dL (60-115)
[2022-11-10] MEDS: Insulin Lispro 100 UNIT/ML 3 ML VIAL SUBCUT ×4 (08:50→21:06)
[2022-11-10] MEDS: Insulin Glargine,Hum.rec.anlog 100 UNIT/ML 10 ML VIAL 10 UNIT SUBCUT ×2 (08:51→21:07)
[2022-11-10] MEDS: Heparin Sodium,Porcine 5,000 UNIT/ML VIAL 5000 UNIT SUBCUT ×2 (08:52→17:27)
[2022-11-10] MEDS: predniSONE 5 MG TABLET 15 MG PO (08:54)
[2022-11-10] MEDS: Magnesium Oxide 400 MG TABLET 200 MG PO (08:54)
[2022-11-10] MEDS: Bumetanide 1 MG TABLET 2 MG PO ×2 (08:55→17:28)
[2022-11-10] MEDS: Artificial Tears 15 ML DROPS 1 DROP EYE-BOTH ×2 (08:57→21:07)
[2022-11-10] MEDS: prednisoLONE Acetate 1 % Oph Susp 5 ML DRPBTL 1 DROP EYE-RIGHT (08:58)
[2022-11-10] MEDS: Nystatin Powder 15 GM BOTTLE 1 APPL TOPICAL ×2 (08:58→21:07)
[2022-11-10] MEDS: timoloL maleate 0.5 % Oph Sol 5 ML DRBTL 1 DROP EYE-RIGHT ×2 (09:06→21:08)
--- NOTE | 2022-11-10 10:30 | MHC.CM.PN ---
EMR REVIEWED, CM STILL AWAITING RESPONSE FROM [facility] THEY HAD QUESTIONS ABOUT PT'S CA MEDICATION, SNF REFERRAL UPDATED AND EXPANDED TO 50 MILE RADIUS, CM WILL CONT TO FOLLOW D/C NEEDS.
--- NOTE | 2022-11-10 10:45 | PM.PNNEP ---
Subjective Subjective Date of Service: 11/11/22 Principal diagnosis: Acute kidney injury, bradycardia, decompensated heart failure. Interval history: follow up for CHF, renal failure Family at bedside. She is feeling better today. Physical Exam Vital Signs: Vital Signs: Last Vital Signs Temp 97.0 F 11/10/22 07:20 Pulse 72 11/10/22 07:20 Resp 20 11/10/22 07:20 BP 133/53 L 11/10/22 07:20 Pulse Ox 96 11/10/22 07:20 O2 Del Method Room Air 11/10/22 07:20 O2 Flow Rate 97 11/05/22 03:24 FiO2 28 11/02/22 07:50 Oxygen Flow Rate 4 10/27/22 20:01 BMI result Body Mass Index 43.9 Const: General: alert and awake HEENT: Head: Yes normocephalic and Yes atraumatic Neck: Neck: Yes supple Resp: Auscultation: diminished lung sounds Cardio: Rate: bradycardic Heart sounds: S1 normal heart sound present and S2 normal heart sound present GI: Palpation (GI): Soft to palpation and nontender Extrem: General: Yes pedal edema Objective Data Labs 11/09/22 10:00 11/09/22 10:00 Labs: Laboratory Results - last 24 hr 11/09/22 11/09/22 11/09/22 10:51 16:02 19:42 POC Glucose 315 H 430 H* 420 H* 11/10/22 06:55 POC Glucose 206 H Microbiology Microbiology Results: Microbiology 10/31/22 09:09 Blood - Venous Blood Culture - Final No growth after 5 days. 10/31/22 09:13 Blood - Venous Blood Culture - Final No growth after 5 days. 10/28/22 Unknown Urine clean catch - Urine malik top Urine Culture - Final Escherichia coli Procedures Date of Service Date of Service: 11/11/22 Assessment & Plan Assessment and plan (1) LEO (acute kidney injury): Status: Acute (2) Hyperkalemia: Status: Acute (3) (HFpEF) heart failure with preserved ejection fraction: Status: Acute (4) CKD (chronic kidney disease) stage 3, GFR 30-59 ml/min: Status: Acute Plan multifactorial LEO: -congestive nephrosarca c/w cardio renal syndrome -acute tubular injury -obstructive uropathy CT scan showed mild left hydronephrosis per urology c/w ascending left pyelonephristis Status post cystoscopy bilateral retrograde and left-sided stent placement on 11/08/2022 known CKD baseline Scr ~ 1.2 mg/dl h/o HFpEF REC renal function is stable No need for dialysis. Repeat renal panel tomorrow. Time Spent With Patient Time: Total time managing care of this patient today ____ minutes. Progress Note: Quality Stroke Does the patient have a stroke diagnosis?: No
[2022-11-10 11:14] LABS: Glucose, Whole Blood 312 mg/dL (60-115)
--- NOTE | 2022-11-10 11:34 | P.CDIM_ITS ---
PROVIDER RESPONSE TEXT: To clarify, the appropriate diagnosis supported by the clinical indicators: Sepsis resolved QUERY TEXT: PHYSICIAN'S DOCUMENTATION REQUEST Date of Query: 11/09/2022 10:02 AM EDT Patient Name: Cindy Toney Admit Date: 10/28/2022 Dear Grupo Oates, A review of the medical record indicates additional documentation may be needed. Please review below and update the documentation accordingly. Clinical documentation: PN 10/28 - Patient arrived sob, CHF exacerbation and LEO PN 10/29 - Feeling better this morning, less sob, no tachypnea and hr is improving/hypotensive 97/50 d ue to bradycardia and LEO not due to sepsis. ICU PN 11/01 - Presented with gram negative sepsis stemming from UTI, e coli w ESBL. ICU PN 11/02 - All signs of sepsis resolving. Nephrology 11/05 - Left sided stent due to left sided hydro possible r/t infected stone. Nephrology 11/05 - left ureteral stent, its a culprit for urosepsis. Nephrology 11/07 - Septic ATN and nephrosarca. WBC 17.4 Temp 96.7 HR 45 UA + no LA Based on the above information, could you please clarify if this diagnoses is still accurate and refl ective of the patient's condition to ensure quality of the medical record. Sepsis is/was present and is a clinical diagnosis based on, After study (the condition) has been ruled out Sepsis resolved Sepsis was present on arrival Other (explain)Clinically unable to determine (explain)Thank you, Krista Wright, CCS, CDIS Use of terms such as suspected, likely, concern for, or probable (associated with a specific diagnosi s that is being evaluated, monitored, or treated as if it exists) are acceptable and can be coded in the inpatient se tting, when documented at the time of discharge. Please use your independent medical judgment in providing your response. THIS QUERY IS PART OF THE PERMANENT MEDICAL RECORD
--- NOTE | 2022-11-10 15:33 | P.CONCA_ITS ---
History of Present Illness History of Present Illness Date of Service: 11/10/22 Requesting physician: Grupo Oates Chief complaint: Hyperkalemia, LEO, CHF Narrative: 72-year-old female who we have been asked to assess for bradycardia. She had 2- 1 av block on EKG and Wenckebach while she was in the intensive care unit. She presented with acute renal failure and hyperkalemia and had temporary hemodialysis performed with improvement in clinical status as well as heart rates. She is denying any symptoms currently. No chest pain or shortness of breath. No orthopnea PND. She has chronic lower extremity edema. Heart rates have improved after her potassium improved and clearly bradycardia was linked with hyperkalemia. She takes metoprolol tartrate 50 mg twice a day at home which was held. [facility] Past Medical History Medical History Acute respiratory failure Bradycardia Chronic lymphocytic leukemia (CLL), B-cell CKD (chronic kidney disease) CLL (chronic lymphocytic leukemia) Congestive heart failure Congestive heart failure COVID COVID-19 Diabetes mellitus with insulin therapy Dyspnea Essential hypertension HLD (hyperlipidemia) HTN (hypertension) Hypothyroidism Hypoxia Infection with ESBL Klebsiella oxytoca Influenza A Klebsiella pneumonia Lower extremity edema Lymphadenopathy, mediastinal Migraine Obesity Pleural effusion Pleural effusion Pneumonia due to COVID-19 virus Pseudotumor cerebri PVD (peripheral vascular disease) Suspected deep tissue injury Functional capacity: bed bound Family History Family History Mother Heart attack, Onset Age: 92 Father Heart attack, Onset Age: 66 Other Diabetes Surgical History Surgical History H/O cataract extraction H/O hysterectomy for benign disease Hx of cholecystectomy S/P appendectomy Social History Social History Household Members: Family Household Members Other:: patient came from a rehab facility, been there since dec Housing: House Do you presently have visiting nurse or other home services: Yes Alcohol intake: never Patient Tobacco Use Status: Former Tobacco user Advance Directives Date on File: 09/26/20 service: No Current occupational status: disabled Meds Allergies Allergy/AdvReac Type Severity Reaction Status Date / Time oxycodone [From Percocet] Allergy Intermediate Rash Verified 04/27/22 11:42 lisinopril Allergy Unknown Unknown Verified 04/27/22 11:42 Active Medications: Current Medications Acetaminophen (Acetaminophen 325 Mg Tablet) 650 mg PO Q6H PRN PRN Reason: Pain, Mild (Pain Scale 1-3) Last Admin: 11/03/22 09:27 Dose: 650 mg Albuterol/Ipratropium (Albuterol/Iprat 2.5/0.5mg 3 Ml Ampul.Neb) 3 ml INHALE Q6H PRN PRN Reason: shortness of breath, wheezing Last Admin: 11/06/22 17:19 Dose: 3 ml Artificial Tears (Artificial Tears 15 Ml Drops) 1 drop EYE-BOTH BID [facility] Last Admin: 11/10/22 08:57 Dose: 1 drop Atorvastatin Calcium (Atorvastatin Calcium 10 Mg Tablet) 10 mg PO BEDTIME [facility] Last Admin: 11/09/22 21:13 Dose: 10 mg Bisacodyl (Bisacodyl 10 Mg Supp.Rect) 10 mg [place] DAILY PRN PRN Reason: Constipation Bumetanide (Bumetanide 1 Mg Tablet) 2 mg PO BID@0800,1700 [facility]; Protocol Last Admin: 11/10/22 08:55 Dose: 2 mg Dextrose (Dextrose 50 % 25 Gm/50 Ml Syringe) 25 gm IVPUSH Q15M PRN; Protocol PRN Reason: per Hypoglycemia Standing Ord. Docusate Sodium (Docusate Sodium 100 Mg Capsule) 100 mg PO DAILY PRN PRN Reason: Constipation Glucose (Glucose Gel 15 Gm Gel..Gram.) 15 gm PO Q15M PRN; Protocol PRN Reason: per Hypoglycemia Standing Ord. Heparin Sodium (Porcine) (Heparin Sodium,Porcine 5,000 Unit/Ml Vial) 5,000 unit SUBCUT Q8H [facility] Last Admin: 11/10/22 08:52 Dose: 5,000 unit Insulin Glargine (Insulin Glargine,Hum.Rec.Anlog 100 Unit/Ml 10 Ml Vial) 10 u nit SUBCUT BID [facility] Last Admin: 11/10/22 08:51 Dose: 10 unit Insulin Human Lispro (Insulin Lispro 100 Unit/Ml 3 Ml Vial) 0 unit SUBCUT QIDACHS [facility]; Protocol Last Admin: 11/10/22 11:45 Dose: 8 unit Latanoprost (Latanoprost 0.005 % Ophth Mona 2.5 Ml Drops) 1 drop EYE-BOTH BEDTIME [facility] Last Admin: 11/09/22 21:16 Dose: 1 drop Levothyroxine Sodium (Levothyroxine Sodium 175 Mcg Tablet) 175 mcg PO DAILY@0600 [facility] Last Admin: 11/10/22 06:09 Dose: 175 mcg Magnesium Oxide (Magnesium Oxide 400 Mg Tablet) 200 mg PO DAILY [facility] Last Admin: 11/10/22 08:54 Dose: 200 mg Melatonin (Melatonin 3 Mg Tablet) 6 mg PO BEDTIME [facility] Last Admin: 11/09/22 21:13 Dose: 6 mg Pt Own ([Calquence ( Acalabrutinib Mal)] 100 Mg Tab 100 mg PO BID [facility] Last Admin: 11/10/22 08:55 Dose: 100 mg Non-Formulary Medication (Brinzolamide-Brimonidine [Simbrinza]) 1 drop EYE- RIGHT BID [facility] Nystatin (Nystatin Powder 15 Gm Bottle) 1 appl TOPICAL BID [facility]; Protocol Last Admin: 11/10/22 08:58 Dose: 1 appl Pharmacy Consult (Consult Rx Perform Med Rec) 1 each MISCELLANE ONCE PRN PRN Reason: Consult order Polyethylene Glycol (Polyethylene Glycol 3350 17 Gm Powd.Pack) 17 gm PO BID [facility] Last Admin: 11/10/22 08:57 Dose: Not Given Prednisolone Acetate (Prednisolone Acetate 1 % Oph Susp 5 Ml Drpbtl) 1 drop EYE-RIGHT DAILY [facility] Last Admin: 11/10/22 08:58 Dose: 1 drop Prednisone (Prednisone 5 Mg Tablet) 15 mg PO DAILY [facility] Last Admin: 11/10/22 08:54 Dose: 15 mg Senna (Sennosides 8.6 Mg Tablet) 17.2 mg PO DAILY PRN PRN Reason: Constipation Sodium Chloride (0.9 % Sodium Chloride Flush 3 Ml Syringe) 3 ml IVFLUSH QSHIFT [facility] Last Admin: 11/10/22 13:45 Dose: Not Given Timolol Maleate (Timolol Maleate 0.5 % Oph Mona 5 Ml Drbtl) 1 drop EYE-RIGHT BID [facility] Last Admin: 11/10/22 09:06 Dose: 1 drop Home Medications Medication Instructions Recorded Confirmed Last Taken Type chlordiazepoxide HCl 10 mg capsule 10 mg PO BEDTIME 10/08/21 10/27/22 Unknown History citalopram 20 mg tablet 40 mg PO DAILY 10/08/21 10/27/22 Unknown History insulin lispro protamine-lispro 0 unit subcut QIDACHS 10/08/21 10/27/22 Unknown History 100 unit/mL (75-25) subcutaneous pen levothyroxine 175 mcg tablet 175 mcg PO DAILY@0600 10/08/21 10/27/22 Unknown History simvastatin 20 mg tablet 20 mg PO BEDTIME 10/08/21 10/27/22 Unknown History sitagliptin phosphate 100 mg 100 mg PO DAILY 10/08/21 10/27/22 Unknown History tablet (Januvia) latanoprost 0.005 % eye drops 1 drp ophthalmic (eye) BEDTIME 11/20/21 10/27/22 Unknown History albuterol sulfate 0.63 mg/3 mL 0.63 mg inhalation Q2H PRN Wheezing 02/16/22 10/27/22 Unknown History solution for nebulization brinzolamide 1 %-brimonidine 0.2 % 1 drp ophthalmic-Right BID 02/16/22 10/27/22 Unknown History eye drops,suspension (Simbrinza) [id number]-lbfkjidp 1 tab PO Q6H PRN Headache 02/16/22 10/27/22 Unknown History 50 mg-325 mg-40 mg tablet coenzyme Q10 100 mg capsule 150 mg PO DAILY 02/16/22 10/27/22 Unknown History (CoQ-10) insulin glargine 100 unit/mL (3 16 unit subcut BID 02/16/22 10/27/22 Unknown History mL) subcutaneous pen (Lantus Solostar U-100 Insulin) melatonin 5 mg tablet 5 mg PO BEDTIME 02/16/22 10/27/22 Unknown History metoprolol tartrate 50 mg tablet 50 mg PO BID 02/16/22 10/27/22 Unknown History prednisolone acetate 1 % eye 1 drp ophthalmic-Right DAILY 02/16/22 10/27/22 Unknown History drops,suspension sennosides 8.6 mg tablet (senna) 17.2 mg PO DAILY PRN Constipation 02/16/22 10/27/22 Unknown History timolol maleate 0.5 % eye drops 1 drp ophthalmic-Right BID 02/16/22 10/27/22 Unknown History carboxymethylcellulose sodium 1 % 1 drp ophthalmic (eye) BID 03/15/22 10/27/22 Unknown History eye drops (Artificial Tears (carboxymethylcellulose)) budesonide-formoterol HFA 160 2 puff inhalation BID 04/27/22 10/27/22 Unknown History mcg-4.5 mcg/actuation aerosol inhaler (Symbicort) umeclidinium 62.5 mcg/actuation 1 inh inhalation DAILY 04/27/22 10/27/22 Unknown History blister powder for inhalation (Incruse Ellipta) acetaminophen 325 mg tablet 650 mg PO Q4H PRN Pain (Scale 06/08/22 10/27/22 Unknown History (Tylenol) Score 4-6) amlodipine 10 mg tablet 10 mg PO DAILY high blood pressure 06/08/22 10/27/22 Unknown History guaifenesin 600 mg tablet, 600 mg PO BID cough 06/08/22 10/27/22 Unknown History extended release 12 hr polyethylene glycol 3350 17 17 g PO BID 06/08/22 10/27/22 Unknown History gram/dose oral powder (Miralax) sodium phosphates 19 gram-7 118 ml VA BEDTIME PRN Constipation 06/08/22 10/27/22 Unknown History gram/118 mL enema (Fleet Enema) levalbuterol HCl 1.25 mg/3 mL 1.25 mg inhalation QID 07/30/22 10/27/22 Unknown History solution for nebulization biotin 5 mg tablet 5 mg PO DAILY 08/11/22 10/27/22 Unknown History bisacodyl 10 mg rectal suppository 10 mg VA DAILY PRN Constipation 08/11/22 10/27/22 Unknown History guaifenesin 100 mg/5 mL oral liquid 200 mg PO Q4H PRN Pain (Scale 08/11/22 10/27/22 Unknown History Score 1-3) hydroxychloroquine 200 mg tablet 200 mg PO BID 08/11/22 10/27/22 Unknown History hydroxyzine HCl 25 mg tablet 25 mg PO DAILY 08/11/22 10/27/22 Unknown History lorazepam 0.5 mg tablet 0.5 mg PO BID PRN Anxiety 08/11/22 10/27/22 Unknown History magnesium 200 mg tablet 400 mg PO DAILY 08/11/22 10/27/22 Unknown History riboflavin (vitamin B2) 400 mg 400 mg PO DAILY 08/11/22 10/27/22 Unknown History tablet diphenhydramine-zinc acetate 2 1 appl topical BID 10/27/22 10/27/22 Unknown History %-0.1 % topical cream nystatin 100,000 unit/gram topical 1 appl topical BID 10/27/22 10/27/22 Unknown History powder prednisone 1 mg tablet 6 mg PO DAILY 10/27/22 10/27/22 Unknown History sennosides 8.6 mg-docusate sodium 1 tab-cap PO DAILY 10/27/22 10/27/22 Unknown History 50 mg tablet (Senna-S) Physical Exam Vital Signs: Vital Signs: Last Vital Signs Temp 98.0 F 11/10/22 11:33 Pulse 73 11/10/22 11:33 Resp 20 11/10/22 11:33 BP 116/51 L 11/10/22 11:33 Pulse Ox 100 11/10/22 11:33 O2 Del Method Room Air 11/10/22 11:33 O2 Flow Rate 97 11/05/22 03:24 FiO2 28 11/02/22 07:50 Oxygen Flow Rate 4 10/27/22 20:01 BMI result Body Mass Index 43.9 GENERAL APPEARANCE: in no acute distress, pleasant. NECK: no carotid bruit, no jugular venous distention. SKIN: no suspicious lesions, warm and dry. HEART: no murmurs, regular rate and rhythm. LUNGS: clear to auscultation bilaterally. ABDOMEN: soft, nontender. EXTREMITIES: Mild edema. Chronic venous insufficiency changes. PERIPHERAL PULSES: equal. NEUROLOGIC: No gross deficits, AAO X 3 Objective Labs and Meds 11/09/22 10:00 11/09/22 10:00 Lab results: Laboratory Results - last 24 hr 11/09/22 11/09/22 11/10/22 16:02 19:42 06:55 POC Glucose 430 H* 420 H* 206 H 11/10/22 11:05 POC Glucose 312 H Assessment and Plan (1) Heart block AV second degree: Status: Acute (2) Hyperkalemia: Status: Acute Plan 72 female with LEO, hyperkalemia and heart block. Heart block was due to hyperkalemia. Heart rates are in 70s. Not see any obvious reason that she needs beta-jos long-term. Stop the beta-jos going forward. Please call if any new questions arise. Signing off. Thank you for allowing me to participate in the care of your patient. Please feel free to contact me if you have any questions. Time Spent With Patient Time: Total time managing care of this patient today ____ minutes. Procedures Date of Service Date of Service: 11/10/22
[2022-11-10 16:11] LABS: Glucose, Whole Blood 291 mg/dL (60-115)
--- NOTE | 2022-11-10 17:10 | P.PNIM_ITS ---
Subjective Subjective Date of Service: 11/10/22 Interval History: follow up for CHF, renal failure Review of Systems denies new c/o no sob or chest pain Physical Exam Vital Signs: Vital Signs: Last Vital Signs Temp 98.7 F 11/10/22 15:38 Pulse 73 11/10/22 15:38 Resp 18 11/10/22 15:38 BP 121/50 L 11/10/22 15:38 Pulse Ox 99 11/10/22 15:38 O2 Del Method Room Air 11/10/22 15:38 O2 Flow Rate 97 11/05/22 03:24 FiO2 28 11/02/22 07:50 Oxygen Flow Rate 4 10/27/22 20:01 BMI result Body Mass Index 43.9 Appearing in no acute distress ?lung sounds are clear to auscultation ?heart regular rate rhythm, clear? S1, S2 ?positive bowel sounds, abdomen is soft, nontender ?neuro patient is alert x3, no focal deficits Objective Data Active Medications Acetaminophen (Acetaminophen 325 Mg Tablet) 650 mg PO Q6H PRN PRN Reason: Pain, Mild (Pain Scale 1-3) Last Admin: 11/03/22 09:27 Dose: 650 mg Documented By: CHAUNCEY Albuterol/Ipratropium (Albuterol/Iprat 2.5/0.5mg 3 Ml Ampul.Neb) 3 ml INHALE Q6 H PRN PRN Reason: shortness of breath, wheezing Last Admin: 11/06/22 17:19 Dose: 3 ml Documented By: SPARKLE Artificial Tears (Artificial Tears 15 Ml Drops) 1 drop EYE-BOTH BID ON LICENSE OF [facility] Last Admin: 11/10/22 08:57 Dose: 1 drop Documented By: MARGI Atorvastatin Calcium (Atorvastatin Calcium 10 Mg Tablet) 10 mg PO BEDTIME ON LICENSE OF [facility] Last Admin: 11/09/22 21:13 Dose: 10 mg Documented By: RONNY Bisacodyl (Bisacodyl 10 Mg Supp.Rect) 10 mg [place] DAILY PRN PRN Reason: Constipation Bumetanide (Bumetanide 1 Mg Tablet) 2 mg PO BID@0800,1700 ON LICENSE OF [facility]; Protocol Last Admin: 11/10/22 08:55 Dose: 2 mg Documented By: MARGI Dextrose (Dextrose 50 % 25 Gm/50 Ml Syringe) 25 gm IVPUSH Q15M PRN; Protocol PRN Reason: per Hypoglycemia Standing Ord. Docusate Sodium (Docusate Sodium 100 Mg Capsule) 100 mg PO DAILY PRN PRN Reason: Constipation Glucose (Glucose Gel 15 Gm Gel..Gram.) 15 gm PO Q15M PRN; Protocol PRN Reason: per Hypoglycemia Standing Ord. Heparin Sodium (Porcine) (Heparin Sodium,Porcine 5,000 Unit/Ml Vial) 5,000 unit SUBCUT Q8H ON LICENSE OF [facility] Last Admin: 11/10/22 08:52 Dose: 5,000 unit Documented By: MARGI Insulin Glargine (Insulin Glargine,Hum.Rec.Anlog 100 Unit/Ml 10 Ml Vial) 10 un it SUBCUT BID ON LICENSE OF [facility] Last Admin: 11/10/22 08:51 Dose: 10 unit Documented By: MARGI Insulin Human Lispro (Insulin Lispro 100 Unit/Ml 3 Ml Vial) 0 unit SUBCUT QIDACHS ON LICENSE OF [facility]; Protocol Last Admin: 11/10/22 11:45 Dose: 8 unit Documented By: CAROL Latanoprost (Latanoprost 0.005 % Ophth Mona 2.5 Ml Drops) 1 drop EYE-BOTH BEDTIME ON [facility] Last Admin: 11/09/22 21:16 Dose: 1 drop Documented By: RONNY Levothyroxine Sodium (Levothyroxine Sodium 175 Mcg Tablet) 175 mcg PO DAILY@0600 ON LICENSE [facility] Last Admin: 11/10/22 06:09 Dose: 175 mcg Documented By: FUENTES Magnesium Oxide (Magnesium Oxide 400 Mg Tablet) 200 mg PO DAILY [facility] Last Admin: 11/10/22 08:54 Dose: 200 mg Documented By: MARGI Melatonin (Melatonin 3 Mg Tablet) 6 mg PO BEDTIME ON [facility] Last Admin: 11/09/22 21:13 Dose: 6 mg Documented By: RONNY Pt Own ([Calquence ( Acalabrutinib Mal)] 100 Mg Tab 100 mg PO BID ON [facility] Last Admin: 11/10/22 08:55 Dose: 100 mg Documented By: MARGI Non-Formulary Medication (Brinzolamide-Brimonidine [Simbrinza]) 1 drop EYE-RIG HT BID ON LICENSE OF [facility] Nystatin (Nystatin Powder 15 Gm Bottle) 1 appl TOPICAL BID ON LICENSE OF [facility]; Protocol Last Admin: 11/10/22 08:58 Dose: 1 appl Documented By: MARGI Pharmacy Consult (Consult Rx Perform Med Rec) 1 each MISCELLANE ONCE PRN PRN Reason: Consult order Polyethylene Glycol (Polyethylene Glycol 3350 17 Gm Powd.Pack) 17 gm PO BID ON LICENSE [facility] Last Admin: 11/10/22 08:57 Dose: Not Given Documented By: MARGI Non-Admin Reason: Patient Refused Prednisolone Acetate (Prednisolone Acetate 1 % Oph Susp 5 Ml Drpbtl) 1 drop EYE-RIGHT DAILY ON [facility] Last Admin: 11/10/22 08:58 Dose: 1 drop Documented By: MARGI Prednisone (Prednisone 5 Mg Tablet) 15 mg PO DAILY [facility] Last Admin: 11/10/22 08:54 Dose: 15 mg Documented By: MARGI Senna (Sennosides 8.6 Mg Tablet) 17.2 mg PO DAILY PRN PRN Reason: Constipation Sodium Chloride (0.9 % Sodium Chloride Flush 3 Ml Syringe) 3 ml IVFLUSH QSHIFT ON LICENSE OF [facility] Last Admin: 11/10/22 13:45 Dose: Not Given Documented By: CAROL Non-Admin Reason: See Note Timolol Maleate (Timolol Maleate 0.5 % Oph Mona 5 Ml Drbtl) 1 drop EYE-RIGHT BID ON [facility] Last Admin: 11/10/22 09:06 Dose: 1 drop Documented By: MARGI Labs 11/09/22 10:00 11/09/22 10:00 Labs: Laboratory Results - last 24 hr 11/09/22 11/10/22 11/10/22 19:42 06:55 11:05 POC Glucose 420 H* 206 H 312 H 11/10/22 16:03 POC Glucose 291 H Assessment and Plan (1) LEO (acute kidney injury): Status: Acute Plan 72-year-old female with past medical history of CHF, CLL, COPD, comes into the hospital with complaints of shortness of breath found to have CHF exacerbation, LEO, and hyperkalemia.?She was found to have UTI with ESBL E coli sensitive to meropenem.? Developed worsening acute on chronic renal failure with oliguria requiring temporary dialysis catheter and dialysis treatments in ICU? ICU step down patient discussed with Dr. Tesfaye.? She did require respiratory support with bipap but has been weaned. Has LATONYA diagnosed by no apneic episodes reported by clock smith. While in ICU developed hyperkalemia and uremia and secondarily bradycardia with Wenckebach.? As creatinine has improved, Wenckebach has resolved with very occasional dropped QRS is noted.? Bradycardia has also resolved.? Vitals are now stable and dialysis catheter has been removed.? She is being transferred [place] [facility] [place] course of meropenem. Acute pyelonephritis with left hydronephrosis urine culture ESBL e.coli , on meropenem started on 10/28, plan to complete 10 day course of antibiotics, end date 11/06 s/p b/l ureteral stent placement yesterday. acute diastolic CHF exacerbation. Resolved echo showed normal EF,? Impaired diastolic function, inferior vena cava severely dilated and does not collapse with inspiration suggestive of right heart strain s/p diuresis and dialysis in ICU continue IV bumex 2mg IV BID,will try to adjust to po. ? chronic hypoxic respiratory failure currently on room air patient with history of obstructive sleep apnea currently not on CPAP Mobitz 1 second degree heart block HR initially in 30s/40s improved to 80s/90s with treatment of LEO/CHF. tsh 0.99 metoprolol on hold,s/p dopamine . added cardiology consult . LEO on CKD 3 multifactorial due to cardiorenal syndrome, ATN, obstructive uropathy Status post temporary dialysis catheter and dialysis while in ICU. Dialysis catheter subsequently removed and renal function improving, but not quite back to baseline Nephrology following acute on chronic normocytic anemia r/t acute illness. no evidence of acute blood loss H/H stable hyperkalemia resolved COPD no acute exacerbation continue home inhalers on chronic prednisone - continue home dose diabetes? continue lantus januvia on hold follow POCs, SSI, ADA diet hypothyroidism continue levothyroxine h/o CLL outpatient follow up morbid obesity recommend low-calorie diet. DVT prophylaxis:? Heparin subq dispo: Likely STR/LTC upon dc inpatient need chf -on iv diuretica, i/o monitering,renal function/electrolytes monitering,cardiology eval,will also need rehab placement Time Spent With Patient Time: Total time managing care of this patient today ____ minutes. Quality Stroke Does the patient have a stroke diagnosis?: No VTE Prior VTE?: No VTE Risk Level:: Medical - moderate - high VTE Device Contraindication: Treatment Not Indicated VTE Drug Contraindication: N/A - Med Ordered
[2022-11-10 20:35] LABS: Glucose, Whole Blood 415 mg/dL (60-115)
[2022-11-10] MEDS: Melatonin 3 MG TABLET 6 MG PO (21:06)
[2022-11-10] MEDS: Atorvastatin Calcium 10 MG TABLET PO (21:06)
[2022-11-10] MEDS: Latanoprost 0.005 % Ophth Sol 2.5 ML DROPS 1 DROP EYE-BOTH (21:07)
[2022-11-11] VITALS (7 sets, daily range): BP systolic 132–149; BP diastolic 38–61; PULSE 67–90; RESP 18; TEMP 35.6–37.2; O2SAT 93–100; BMI 43.4
[2022-11-11] MEDS: Heparin Sodium,Porcine 5,000 UNIT/ML VIAL 5000 UNIT SUBCUT ×3 (01:04→17:05)
[2022-11-11] MEDS: 0.9 % Sodium Chloride Flush 3 ML SYRINGE IVFLUSH (01:04)
[2022-11-11] MEDS: Levothyroxine Sodium 175 MCG TABLET PO (05:27)
[2022-11-11 07:18] LABS: Glucose, Whole Blood 219 mg/dL (60-115)
[2022-11-11] MEDS: Magnesium Oxide 400 MG TABLET 200 MG PO (08:08)
[2022-11-11] MEDS: predniSONE 5 MG TABLET 15 MG PO (08:08)
[2022-11-11] MEDS: Bumetanide 1 MG TABLET 2 MG PO ×2 (08:09→17:05)
[2022-11-11] MEDS: Insulin Lispro 100 UNIT/ML 3 ML VIAL SUBCUT ×4 (08:09→22:13)
[2022-11-11] MEDS: Insulin Glargine,Hum.rec.anlog 100 UNIT/ML 10 ML VIAL 10 UNIT SUBCUT ×2 (08:09→22:14)
[2022-11-11] MEDS: prednisoLONE Acetate 1 % Oph Susp 5 ML DRPBTL 1 DROP EYE-RIGHT (08:10)
[2022-11-11] MEDS: timoloL maleate 0.5 % Oph Sol 5 ML DRBTL 1 DROP EYE-RIGHT ×2 (08:10→22:13)
[2022-11-11] MEDS: Nystatin Powder 15 GM BOTTLE 1 APPL TOPICAL ×2 (08:10→22:13)
[2022-11-11] MEDS: Artificial Tears 15 ML DROPS 1 DROP EYE-BOTH ×2 (08:10→22:12)
[2022-11-11 11:17] LABS: Glucose, Whole Blood 280 mg/dL (60-115)
[2022-11-11 15:33] LABS: Glucose, Whole Blood 338 mg/dL (60-115)
--- NOTE | 2022-11-11 17:09 | P.PNIM_ITS ---
Subjective Subjective Date of Service: 11/11/22 Interval History: follow up for CHF, renal failure Review of Systems denies new c/o no sob or chest pain Physical Exam Vital Signs: Vital Signs: Last Vital Signs Temp 99.0 F 11/11/22 15:48 Pulse 90 11/11/22 15:48 Resp 18 11/11/22 15:48 BP 134/38 L 11/11/22 15:48 Pulse Ox 93 11/11/22 15:48 O2 Del Method Room Air 11/11/22 15:48 O2 Flow Rate 97 11/05/22 03:24 FiO2 28 11/02/22 07:50 Oxygen Flow Rate 4 10/27/22 20:01 BMI result Body Mass Index 43.4 Appearing in no acute distress ?lung sounds are clear to auscultation ?heart regular rate rhythm, clear? S1, S2 ?positive bowel sounds, abdomen is soft, nontender ?neuro patient is alert x3, no focal deficits Objective Data Active Medications Acetaminophen (Acetaminophen 325 Mg Tablet) 650 mg PO Q6H PRN PRN Reason: Pain, Mild (Pain Scale 1-3) Last Admin: 11/03/22 09:27 Dose: 650 mg Documented By: CHAUNCEY Artificial Tears (Artificial Tears 15 Ml Drops) 1 drop EYE-BOTH BID [facility] Last Admin: 11/11/22 08:10 Dose: 1 drop Documented By: CAROL Atorvastatin Calcium (Atorvastatin Calcium 10 Mg Tablet) 10 mg PO BEDTIME [facility] Last Admin: 11/10/22 21:06 Dose: 10 mg Documented By: MARCO Bisacodyl (Bisacodyl 10 Mg Supp.Rect) 10 mg MS DAILY PRN PRN Reason: Constipation Bumetanide (Bumetanide 1 Mg Tablet) 2 mg PO BID@0800,1700 [facility]; Protocol Last Admin: 11/11/22 17:05 Dose: 2 mg Documented By: CAROL Dextrose (Dextrose 50 % 25 Gm/50 Ml Syringe) 25 gm IVPUSH Q15M PRN; Protocol PRN Reason: per Hypoglycemia Standing Ord. Docusate Sodium (Docusate Sodium 100 Mg Capsule) 100 mg PO DAILY PRN PRN Reason: Constipation Glucose (Glucose Gel 15 Gm Gel..Gram.) 15 gm PO Q15M PRN; Protocol PRN Reason: per Hypoglycemia Standing Ord. Heparin Sodium (Porcine) (Heparin Sodium,Porcine 5,000 Unit/Ml Vial) 5,000 unit SUBCUT Q8H [facility] Last Admin: 11/11/22 17:05 Dose: 5,000 unit Documented By: CAROL Insulin Glargine (Insulin Glargine,Hum.Rec.Anlog 100 Unit/Ml 10 Ml Vial) 10 unit SUBCUT BID [facility] Last Admin: 11/11/22 08:09 Dose: 10 unit Documented By: CAROL Insulin Human Lispro (Insulin Lispro 100 Unit/Ml 3 Ml Vial) 0 unit SUBCUT QIDACHS [facility]; Protocol Last Admin: 11/11/22 17:05 Dose: 8 unit Documented By: CAROL Latanoprost (Latanoprost 0.005 % Ophth Mona 2.5 Ml Drops) 1 drop EYE-BOTH BEDTIME [facility] Last Admin: 11/10/22 21:07 Dose: 1 drop Documented By: MARCO Levothyroxine Sodium (Levothyroxine Sodium 175 Mcg Tablet) 175 mcg PO DAILY@0600 [facility] Last Admin: 11/11/22 05:27 Dose: 175 mcg Documented By: MARCO Magnesium Oxide (Magnesium Oxide 400 Mg Tablet) 200 mg PO DAILY [facility] Last Admin: 11/11/22 08:08 Dose: 200 mg Documented By: CAROL Melatonin (Melatonin 3 Mg Tablet) 6 mg PO BEDTIME [facility] Last Admin: 11/10/22 21:06 Dose: 6 mg Documented By: MARCO Pt Own ([Calquence ( Acalabrutinib Mal)] 100 Mg Tab 100 mg PO BID [facility] Last Admin: 11/11/22 08:09 Dose: 100 mg Documented By: CAROL Non-Formulary Medication (Brinzolamide-Brimonidine [Simbrinza]) 1 drop EYE- RIGHT BID [facility] Nystatin (Nystatin Powder 15 Gm Bottle) 1 appl TOPICAL BID [facility]; Protocol Last Admin: 11/11/22 08:10 Dose: 1 appl Documented By: CAROL Pharmacy Consult (Consult Rx Perform Med Rec) 1 each MISCELLANE ONCE PRN PRN Reason: Consult order Polyethylene Glycol (Polyethylene Glycol 3350 17 Gm Powd.Pack) 17 gm PO BID [facility] Last Admin: 11/11/22 08:07 Dose: Not Given Documented By: CAROL Non-Admin Reason: Patient Refused Prednisolone Acetate (Prednisolone Acetate 1 % Oph Susp 5 Ml Drpbtl) 1 drop EYE-RIGHT DAILY [facility] Last Admin: 11/11/22 08:10 Dose: 1 drop Documented By: CAROL Prednisone (Prednisone 5 Mg Tablet) 15 mg PO DAILY [facility] Last Admin: 11/11/22 08:08 Dose: 15 mg Documented By: CAROL Senna (Sennosides 8.6 Mg Tablet) 17.2 mg PO DAILY PRN PRN Reason: Constipation Sodium Chloride (0.9 % Sodium Chloride Flush 3 Ml Syringe) 3 ml IVFLUSH QSHIFT [facility] Last Admin: 11/11/22 13:45 Dose: Not Given Documented By: CAROL Non-Admin Reason: See Note Timolol Maleate (Timolol Maleate 0.5 % Oph Mona 5 Ml Drbtl) 1 drop EYE-RIGHT BID [facility] Last Admin: 11/11/22 08:10 Dose: 1 drop Documented By: CAROL Labs 11/09/22 10:00 11/09/22 10:00 Labs: Laboratory Results - last 24 hr 11/10/22 11/11/22 11/11/22 20:27 07:13 11:13 POC Glucose 415 H* 219 H 280 H 11/11/22 15:29 POC Glucose 338 H Assessment and Plan (1) CHF exacerbation: Status: Acute Plan 72-year-old female with past medical history of CHF, CLL, COPD, comes into the hospital with complaints of shortness of breath found to have CHF exacerbation, LEO, and hyperkalemia.?She was found to have UTI with ESBL E coli sensitive to meropenem.? Developed worsening acute on chronic renal failure with oliguria requiring temporary dialysis catheter and dialysis treatments in ICU? ICU step down patient discussed with Dr. Tesfaye.? She did require respiratory support with bipap but has been weaned. Has LATONYA diagnosed by no apneic episodes reported by last model department supervisor. While in ICU developed hyperkalemia and uremia and secondarily bradycardia with Wenckebach.? As creatinine has improved, Wenckebach has resolved with very occasional dropped QRS is noted.? Bradycardia has also resolved.? Vitals are now stable and dialysis catheter has been removed.? She is being transferred to [facility] [place] to complete course of meropenem. Acute pyelonephritis with left hydronephrosis urine culture ESBL e.coli , on meropenem started on 10/28, plan to complete 10 day course of antibiotics, end date 11/06 s/p b/l ureteral stent placement yesterday. acute diastolic CHF exacerbation. Resolved echo showed normal EF,? Impaired diastolic function, inferior vena cava severely dilated and does not collapse with inspiration suggestive of right heart strain s/p diuresis and dialysis in ICU continue IV bumex 2mg IV BID,will try to adjust to po. ? chronic hypoxic respiratory failure currently on room air patient with history of obstructive sleep apnea currently not on CPAP Mobitz 1 second degree heart block HR initially in 30s/40s improved to 80s/90s with treatment of LEO/CHF. tsh 0.99 metoprolol on hold,s/p dopamine . added cardiology consult . LEO on CKD 3 multifactorial due to cardiorenal syndrome, ATN, obstructive uropathy Status post temporary dialysis catheter and dialysis while in ICU. Dialysis catheter subsequently removed and renal function improving, but not quite back to baseline Nephrology following acute on chronic normocytic anemia r/t acute illness. no evidence of acute blood loss H/H stable hyperkalemia resolved COPD no acute exacerbation continue home inhalers on chronic prednisone - continue home dose diabetes? continue lantus januvia on hold follow POCs, SSI, ADA diet hypothyroidism continue levothyroxine h/o CLL outpatient follow up morbid obesity recommend low-calorie diet. DVT prophylaxis:? Heparin subq dispo: Likely STR/LTC upon dc inpatient need rehab placement Time Spent With Patient Time: Total time managing care of this patient today ____ minutes. Quality Stroke Does the patient have a stroke diagnosis?: No VTE Prior VTE?: No VTE Risk Level:: Medical - moderate - high VTE Device Contraindication: Treatment Not Indicated VTE Drug Contraindication: N/A - Med Ordered
[2022-11-11 21:26] LABS: Glucose, Whole Blood 486 mg/dL (60-115)
[2022-11-11] MEDS: Latanoprost 0.005 % Ophth Sol 2.5 ML DROPS 1 DROP EYE-BOTH (22:12)
[2022-11-11] MEDS: Melatonin 3 MG TABLET 6 MG PO (22:12)
[2022-11-11] MEDS: Atorvastatin Calcium 10 MG TABLET PO (22:12)
[2022-11-11] MEDS: Insulin Lispro 100 UNIT/ML 3 ML VIAL 10 UNIT SUBCUT (22:13)
[2022-11-12] VITALS (7 sets, daily range): BP systolic 116–147; BP diastolic 53–65; PULSE 71–87; RESP 14–20; TEMP 36.1–37.1; O2SAT 97–100; BMI 43.7
[2022-11-12] MEDS: Heparin Sodium,Porcine 5,000 UNIT/ML VIAL 5000 UNIT SUBCUT ×3 (01:30→18:33)
[2022-11-12] MEDS: Levothyroxine Sodium 175 MCG TABLET PO (05:43)
[2022-11-12 08:05] LABS: Glucose, Whole Blood 243 mg/dL (60-115)
[2022-11-12] MEDS: predniSONE 5 MG TABLET 10 MG PO (08:38)
[2022-11-12] MEDS: Bumetanide 1 MG TABLET 2 MG PO ×2 (08:38→16:31)
[2022-11-12] MEDS: Magnesium Oxide 400 MG TABLET 200 MG PO (08:38)
[2022-11-12] MEDS: Artificial Tears 15 ML DROPS 1 DROP EYE-BOTH ×2 (08:39→21:10)
[2022-11-12] MEDS: Insulin Glargine,Hum.rec.anlog 100 UNIT/ML 10 ML VIAL 15 UNIT SUBCUT ×2 (08:39→16:31)
[2022-11-12] MEDS: Nystatin Powder 15 GM BOTTLE 1 APPL TOPICAL ×2 (08:39→21:10)
[2022-11-12] MEDS: timoloL maleate 0.5 % Oph Sol 5 ML DRBTL 1 DROP EYE-RIGHT ×2 (08:39→21:10)
[2022-11-12] MEDS: 0.9 % Sodium Chloride Flush 3 ML SYRINGE IVFLUSH ×3 (08:40→21:11)
[2022-11-12] MEDS: Insulin Lispro 100 UNIT/ML 3 ML VIAL SUBCUT ×4 (08:40→21:08)
[2022-11-12] MEDS: prednisoLONE Acetate 1 % Oph Susp 5 ML DRPBTL 1 DROP EYE-RIGHT (08:41)
[2022-11-12 11:26] LABS: Glucose, Whole Blood 403 mg/dL (60-115)
--- NOTE | 2022-11-12 15:24 | P.PNIM_ITS ---
Subjective Subjective Date of Service: 11/12/22 Interval History: follow up for CHF, renal failure Review of Systems denies new c/o no sob or chest pain Physical Exam Vital Signs: Vital Signs: Last Vital Signs Temp 97.0 F 11/12/22 11:20 Pulse 72 11/12/22 11:20 Resp 20 11/12/22 11:20 BP 116/53 L 11/12/22 11:20 Pulse Ox 98 11/12/22 11:20 O2 Del Method Room Air 11/12/22 11:20 O2 Flow Rate 97 11/05/22 03:24 FiO2 28 11/02/22 07:50 Oxygen Flow Rate 4 10/27/22 20:01 BMI result Body Mass Index 43.7 Appearing in no acute distress ?lung sounds are clear to auscultation ?heart regular rate rhythm, clear? S1, S2 ?positive bowel sounds, abdomen is soft, nontender ?neuro patient is alert x3, no focal deficits Objective Data Active Medications Acetaminophen (Acetaminophen 325 Mg Tablet) 650 mg PO Q6H PRN PRN Reason: Pain, Mild (Pain Scale 1-3) Last Admin: 11/03/22 09:27 Dose: 650 mg Documented By: CHAUNCEY Artificial Tears (Artificial Tears 15 Ml Drops) 1 drop EYE-BOTH BID [facility] Last Admin: 11/12/22 08:39 Dose: 1 drop Documented By: ESVIN Atorvastatin Calcium (Atorvastatin Calcium 10 Mg Tablet) 10 mg PO BEDTIME [facility] Last Admin: 11/11/22 22:12 Dose: 10 mg Documented By: MARCO Bisacodyl (Bisacodyl 10 Mg Supp.Rect) 10 mg LA DAILY PRN PRN Reason: Constipation Bumetanide (Bumetanide 1 Mg Tablet) 2 mg PO BID@0800,1700 [facility]; Protocol Last Admin: 11/12/22 08:38 Dose: 2 mg Documented By: ESVIN Dextrose (Dextrose 50 % 25 Gm/50 Ml Syringe) 25 gm IVPUSH Q15M PRN; Protocol PRN Reason: per Hypoglycemia Standing Ord. Docusate Sodium (Docusate Sodium 100 Mg Capsule) 100 mg PO DAILY PRN PRN Reason: Constipation Glucose (Glucose Gel 15 Gm Gel..Gram.) 15 gm PO Q15M PRN; Protocol PRN Reason: per Hypoglycemia Standing Ord. Heparin Sodium (Porcine) (Heparin Sodium,Porcine 5,000 Unit/Ml Vial) 5,000 unit SUBCUT Q8H [facility] Last Admin: 11/12/22 10:29 Dose: 5,000 unit Documented By: ESVIN Insulin Glargine (Insulin Glargine,Hum.Rec.Anlog 100 Unit/Ml 10 Ml Vial) 15 uni t SUBCUT BID [facility] Last Admin: 11/12/22 08:39 Dose: 15 unit Documented By: ESVIN Insulin Human Lispro (Insulin Lispro 100 Unit/Ml 3 Ml Vial) 0 unit SUBCUT QIDACHS [facility]; Protocol Last Admin: 11/12/22 12:19 Dose: 12 unit Documented By: ESVIN Latanoprost (Latanoprost 0.005 % Ophth Mona 2.5 Ml Drops) 1 drop EYE-BOTH BEDTIME [facility] Last Admin: 11/11/22 22:12 Dose: 1 drop Documented By: MARCO Levothyroxine Sodium (Levothyroxine Sodium 175 Mcg Tablet) 175 mcg PO DAILY@0600 [facility] Last Admin: 11/12/22 05:43 Dose: 175 mcg Documented By: MARCO Magnesium Oxide (Magnesium Oxide 400 Mg Tablet) 200 mg PO DAILY [facility] Last Admin: 11/12/22 08:38 Dose: 200 mg Documented By: ESVIN Melatonin (Melatonin 3 Mg Tablet) 6 mg PO BEDTIME [facility] Last Admin: 11/11/22 22:12 Dose: 6 mg Documented By: MARCO Pt Own ([Calquence ( Acalabrutinib Mal)] 100 Mg Tab 100 mg PO BID [facility] Last Admin: 11/12/22 08:41 Dose: 100 mg Documented By: ESVIN Non-Formulary Medication (Brinzolamide-Brimonidine [Simbrinza]) 1 drop EYE- RIGHT BID [facility] Nystatin (Nystatin Powder 15 Gm Bottle) 1 appl TOPICAL BID [facility]; Protocol Last Admin: 11/12/22 08:39 Dose: 1 appl Documented By: ESVIN Pharmacy Consult (Consult Rx Perform Med Rec) 1 each MISCELLANE ONCE PRN PRN Reason: Consult order Polyethylene Glycol (Polyethylene Glycol 3350 17 Gm Powd.Pack) 17 gm PO BID [facility] Last Admin: 11/12/22 08:39 Dose: Not Given Documented By: ESVIN Non-Admin Reason: Patient Refused Prednisolone Acetate (Prednisolone Acetate 1 % Oph Susp 5 Ml Drpbtl) 1 drop EYE-RIGHT DAILY [facility] Last Admin: 11/12/22 08:41 Dose: 1 drop Documented By: ESVIN Prednisone (Prednisone 5 Mg Tablet) 10 mg PO DAILY [facility] Last Admin: 11/12/22 08:38 Dose: 10 mg Documented By: ESVIN Senna (Sennosides 8.6 Mg Tablet) 17.2 mg PO DAILY PRN PRN Reason: Constipation Sodium Chloride (0.9 % Sodium Chloride Flush 3 Ml Syringe) 3 ml IVFLUSH QSHIFT [facility] Last Admin: 11/12/22 08:40 Dose: 3 ml Documented By: ESVIN Timolol Maleate (Timolol Maleate 0.5 % Oph Mona 5 Ml Drbtl) 1 drop EYE-RIGHT BID [facility] Last Admin: 11/12/22 08:39 Dose: 1 drop Documented By: ESVIN Labs 11/09/22 10:00 11/09/22 10:00 Labs: Laboratory Results - last 24 hr 11/11/22 11/11/22 11/12/22 15:29 21:21 08:02 POC Glucose 338 H 486 H* 243 H 11/12/22 11:18 POC Glucose 403 H* Assessment and Plan (1) CHF exacerbation: Status: Acute Plan 72-year-old female with past medical history of CHF, CLL, COPD, comes into the hospital with complaints of shortness of breath found to have CHF exacerbation, LEO, and hyperkalemia.?She was found to have UTI with ESBL E coli sensitive to meropenem.? Developed worsening acute on chronic renal failure with oliguria requiring temporary dialysis catheter and dialysis treatments in ICU? ICU step down patient discussed with Dr. Tesfaye.? She did require respiratory support with bipap but has been weaned. Has LATONYA diagnosed by no apneic episodes reported by [employer]. While in ICU developed hyperkalemia and uremia and secondarily bradycardia with Wenckebach.? As creatinine has improved, Wenckebach has resolved with very occasional dropped QRS is noted.? Bradycardia has also resolved.? Vitals are now stable and dialysis catheter has been removed.? She is being transferred to [facility] [place] [place] to complete course of meropenem. Acute pyelonephritis with left hydronephrosis urine culture ESBL e.coli , on meropenem started on 10/28, plan to complete 10 day course of antibiotics, end date 11/06 s/p b/l ureteral stent placement yesterday. acute diastolic CHF exacerbation. Resolved echo showed normal EF,? Impaired diastolic function, inferior vena cava severely dilated and does not collapse with inspiration suggestive of right heart strain s/p diuresis and dialysis in ICU continue IV bumex 2mg IV BID,will try to adjust to po. ? chronic hypoxic respiratory failure currently on room air patient with history of obstructive sleep apnea currently not on CPAP Mobitz 1 second degree heart block HR initially in 30s/40s improved to 80s/90s with treatment of LEO/CHF. tsh 0.99 metoprolol on hold,s/p dopamine . added cardiology consult . LEO on CKD 3 multifactorial due to cardiorenal syndrome, ATN, obstructive uropathy Status post temporary dialysis catheter and dialysis while in ICU. Dialysis catheter subsequently removed and renal function improving, but not quite back to baseline Nephrology following acute on chronic normocytic anemia r/t acute illness. no evidence of acute blood loss H/H stable hyperkalemia resolved COPD no acute exacerbation continue home inhalers on chronic prednisone - continue home dose diabetes? continue lantus januvia on hold follow POCs, SSI, ADA diet hypothyroidism continue levothyroxine h/o CLL outpatient follow up morbid obesity recommend low-calorie diet. patient has ch incontinence -insisted for [facility]son for skin intergrity DVT prophylaxis:? Heparin subq dispo: Likely STR/LTC upon dc inpatient need rehab placement Time Spent With Patient Time: Total time managing care of this patient today ____ minutes. Quality Stroke Does the patient have a stroke diagnosis?: No VTE Prior VTE?: No VTE Risk Level:: Medical - moderate - high VTE Device Contraindication: Treatment Not Indicated VTE Drug Contraindication: N/A - Med Ordered
--- NOTE | 2022-11-12 15:40 | MHC.CM.PN ---
EMR reviewed and per MD rounds, pt is medically cleared for D/C, however we are awaiting a facility bed offer for [facility]. [facility] are following, awaiting official bed offer. CM will continue to follow.
[2022-11-12 16:19] LABS: Glucose, Whole Blood 464 mg/dL (60-115)
--- NOTE | 2022-11-12 16:56 | PC.NURSE ---
pt. blood sugar has been elevated for most of the day, this afternoon it was 403, provider was notified and 12 units of lispro was given per MD order. At 4 pm sugar check pt. sugar was 464, MD was notified and added 2 more units of Lispro and stated that he wanted to give long acting insulin early. At dinner Pt. recieved 14 units of lispro and 15 units long acting humalog per MD orders.
[2022-11-12 20:32] LABS: Glucose, Whole Blood 496 mg/dL (60-115)
[2022-11-12] MEDS: Insulin Lispro 100 UNIT/ML 3 ML VIAL 10 UNIT SUBCUT (21:08)
[2022-11-12] MEDS: Atorvastatin Calcium 10 MG TABLET PO (21:10)
[2022-11-12] MEDS: Melatonin 3 MG TABLET 6 MG PO (21:10)
[2022-11-12] MEDS: Latanoprost 0.005 % Ophth Sol 2.5 ML DROPS 1 DROP EYE-BOTH (21:11)
[2022-11-13] MEDS: Heparin Sodium,Porcine 5,000 UNIT/ML VIAL 5000 UNIT SUBCUT ×3 (03:00→16:51)
[2022-11-13 03:24] VITALS: BP 129/59; PULSE 80; RESP 18; TEMP 36.1; O2SAT 99
[2022-11-13] MEDS: Levothyroxine Sodium 175 MCG TABLET PO (05:49)
[2022-11-13 06:00] VITALS: BMI 43.3
[2022-11-13 07:15] VITALS: BP 128/59; PULSE 78; RESP 18; TEMP 36.5; O2SAT 96
[2022-11-13 07:21] LABS: Glucose, Whole Blood 169 mg/dL (60-115)
[2022-11-13] MEDS: Insulin Glargine,Hum.rec.anlog 100 UNIT/ML 10 ML VIAL 15 UNIT SUBCUT ×2 (08:19→20:39)
[2022-11-13] MEDS: Insulin Lispro 100 UNIT/ML 3 ML VIAL SUBCUT ×5 (08:19→20:38)
[2022-11-13] MEDS: predniSONE 5 MG TABLET 10 MG PO (08:19)
[2022-11-13] MEDS: Magnesium Oxide 400 MG TABLET 200 MG PO (08:26)
[2022-11-13] MEDS: 0.9 % Sodium Chloride Flush 3 ML SYRINGE IVFLUSH ×3 (08:28→20:40)
[2022-11-13] MEDS: timoloL maleate 0.5 % Oph Sol 5 ML DRBTL 1 DROP EYE-RIGHT ×2 (08:30→22:27)
[2022-11-13] MEDS: Artificial Tears 15 ML DROPS 1 DROP EYE-BOTH ×2 (08:30→22:26)
[2022-11-13] MEDS: Nystatin Powder 15 GM BOTTLE 1 APPL TOPICAL ×2 (08:30→22:26)
[2022-11-13] MEDS: prednisoLONE Acetate 1 % Oph Susp 5 ML DRPBTL 1 DROP EYE-RIGHT (08:31)
[2022-11-13 11:12] VITALS: BP 132/60; PULSE 86; RESP 18; TEMP 36.2; O2SAT 99
[2022-11-13 11:12] LABS: Glucose, Whole Blood 446 mg/dL (60-115)
[2022-11-13] MEDS: Insulin Glargine,Hum.rec.anlog 100 UNIT/ML 10 ML VIAL SUBCUT (12:23)
--- NOTE | 2022-11-13 12:59 | HO.PM.IMPN ---
Subjective Subjective Date of Service: 11/13/22 Interval History: follow up for CHF, renal failure Review of Systems denies new c/o no sob or chest pain fs in 450;s range Physical Exam Vital Signs: Vital Signs: Last Vital Signs Temp 97.1 F 11/13/22 11:12 Pulse 86 11/13/22 11:12 Resp 18 11/13/22 11:12 BP 132/60 11/13/22 11:12 Pulse Ox 99 11/13/22 11:12 O2 Del Method Room Air 11/13/22 11:12 O2 Flow Rate 97 11/05/22 03:24 FiO2 28 11/02/22 07:50 Oxygen Flow Rate 4 10/27/22 20:01 BMI result Body Mass Index 43.3 Appearing in no acute distress ?lung sounds are clear to auscultation ?heart regular rate rhythm, clear? S1, S2 ?positive bowel sounds, abdomen is soft, nontender ?neuro patient is alert x3, no focal deficits Objective Data Active Medications Acetaminophen (Acetaminophen 325 Mg Tablet) 650 mg PO Q6H PRN PRN Reason: Pain, Mild (Pain Scale 1-3) Last Admin: 11/03/22 09:27 Dose: 650 mg Documented By: CHAUNCEY Artificial Tears (Artificial Tears 15 Ml Drops) 1 drop EYE-BOTH BID [facility] Last Admin: 11/13/22 08:30 Dose: 1 drop Documented By: ANUPAMA Atorvastatin Calcium (Atorvastatin Calcium 10 Mg Tablet) 10 mg PO BEDTIME [facility] Last Admin: 11/12/22 21:10 Dose: 10 mg Documented By: FUENTES Bisacodyl (Bisacodyl 10 Mg Supp.Rect) 10 mg FL DAILY PRN PRN Reason: Constipation Dextrose (Dextrose 50 % 25 Gm/50 Ml Syringe) 25 gm IVPUSH Q15M PRN; Protocol PRN Reason: per Hypoglycemia Standing Ord. Docusate Sodium (Docusate Sodium 100 Mg Capsule) 100 mg PO DAILY PRN PRN Reason: Constipation Glucose (Glucose Gel 15 Gm Gel..Gram.) 15 gm PO Q15M PRN; Protocol PRN Reason: per Hypoglycemia Standing Ord. Heparin Sodium (Porcine) (Heparin Sodium,Porcine 5,000 Unit/Ml Vial) 5,000 unit SUBCUT Q8H [facility] Last Admin: 11/13/22 08:18 Dose: 5,000 unit Documented By: ANUPAMA Insulin Glargine (Insulin Glargine,Hum.Rec.Anlog 100 Unit/Ml 10 Ml Vial) 15 unit SUBCUT BID [facility] Last Admin: 11/13/22 08:19 Dose: 15 unit Documented By: ANUPAMA Insulin Human Lispro (Insulin Lispro 100 Unit/Ml 3 Ml Vial) 0 unit SUBCUT QIDACHS [facility]; Protocol Last Admin: 11/13/22 12:24 Dose: 14 unit Documented By: ANUPAMA Latanoprost (Latanoprost 0.005 % Ophth Mona 2.5 Ml Drops) 1 drop EYE-BOTH BEDTIME [facility] Last Admin: 11/12/22 21:11 Dose: 1 drop Documented By: FUENTES Levothyroxine Sodium (Levothyroxine Sodium 175 Mcg Tablet) 175 mcg PO DAILY@0600 [facility] Last Admin: 11/13/22 05:49 Dose: 175 mcg Documented By: FUENTES Magnesium Oxide (Magnesium Oxide 400 Mg Tablet) 200 mg PO DAILY [facility] Last Admin: 11/13/22 08:26 Dose: 200 mg Documented By: ANUPAMA Melatonin (Melatonin 3 Mg Tablet) 6 mg PO BEDTIME [facility] Last Admin: 11/12/22 21:10 Dose: 6 mg Documented By: FUENTES Pt Own ([Calquence ( Acalabrutinib Mal)] 100 Mg Tab 100 mg PO BID [facility] Last Admin: 11/13/22 08:28 Dose: 100 mg Documented By: ANUPAMA Non-Formulary Medication (Brinzolamide-Brimonidine [Simbrinza]) 1 drop EYE-RIGHT BID [facility] Nystatin (Nystatin Powder 15 Gm Bottle) 1 appl TOPICAL BID [facility]; Protocol Last Admin: 11/13/22 08:30 Dose: 1 appl Documented By: ANUPAMA Pharmacy Consult (Consult Rx Perform Med Rec) 1 each MISCELLANE ONCE PRN PRN Reason: Consult order Polyethylene Glycol (Polyethylene Glycol 3350 17 Gm Powd.Pack) 17 gm PO BID [facility] Last Admin: 11/13/22 08:29 Dose: Not Given Documented By: ANUPAMA Non-Admin Reason: Patient Refused Prednisolone Acetate (Prednisolone Acetate 1 % Oph Susp 5 Ml Drpbtl) 1 drop EYE-RIGHT DAILY [facility] Last Admin: 11/13/22 08:31 Dose: 1 drop Documented By: ANUPAMA Prednisone (Prednisone 5 Mg Tablet) 10 mg PO DAILY [facility] Last Admin: 11/13/22 08:19 Dose: 10 mg Documented By: ANUPAMA Senna (Sennosides 8.6 Mg Tablet) 17.2 mg PO DAILY PRN PRN Reason: Constipation Sodium Chloride (0.9 % Sodium Chloride Flush 3 Ml Syringe) 3 ml IVFLUSH QSHIFT [facility] Last Admin: 11/13/22 08:28 Dose: 3 ml Documented By: ANUPAMA Timolol Maleate (Timolol Maleate 0.5 % Oph Mona 5 Ml Drbtl) 1 drop EYE-RIGHT BID [facility] Last Admin: 11/13/22 08:30 Dose: 1 drop Documented By: ANUPAMA Labs 11/09/22 10:00 11/09/22 10:00 Labs: Laboratory Results - last 24 hr 11/12/22 11/12/22 11/13/22 16:16 20:28 07:13 POC Glucose 464 H* 496 H* 169 H 11/13/22 11:08 POC Glucose 446 H* Assessment and Plan (1) CHF exacerbation: Status: Acute Plan 72-year-old female with past medical history of CHF, CLL, COPD, comes into the hospital with complaints of shortness of breath found to have CHF exacerbation, LEO, and hyperkalemia.?She was found to have UTI with ESBL E coli sensitive to meropenem.? Developed worsening acute on chronic renal failure with oliguria requiring temporary dialysis catheter and dialysis treatments in ICU? ICU step down patient discussed with Dr. Tesfaye.? She did require respiratory support with bipap but has been weaned. Has LATONYA diagnosed by no apneic episodes reported by pure culture operator. While in ICU developed hyperkalemia and uremia and secondarily bradycardia with Wenckebach.? As creatinine has improved, Wenckebach has resolved with very occasional dropped QRS is noted.? Bradycardia has also resolved.? Vitals are now stable and dialysis catheter has been removed.? [place] [facility] [place]. Acute pyelonephritis with left hydronephrosis urine culture ESBL e.coli , on meropenem started on 10/28, plan to complete 10 day course of antibiotics, end date 11/06 s/p b/l ureteral stent placement yesterday. acute diastolic CHF exacerbation. Resolved echo showed normal EF,? Impaired diastolic function, inferior vena cava severely dilated and does not collapse with inspiration suggestive of right heart strain s/p diuresis and dialysis in ICU euvolemic total i/o ,10 liters neg hold bumex for today ? chronic hypoxic respiratory failure currently on room air patient with history of obstructive sleep apnea currently not on CPAP Mobitz 1 second degree heart block HR initially in 30s/40s improved to 80s/90s with treatment of LEO/CHF. tsh 0.99 metoprolol on hold,s/p dopamine . cardiology consult appreciated -no need for bb . LEO on CKD 3 multifactorial due to cardiorenal syndrome, ATN, obstructive uropathy Status post temporary dialysis catheter and dialysis while in ICU. Dialysis catheter subsequently removed and renal function improving, but not quite back to baseline Nephrology following acute on chronic normocytic anemia r/t acute illness. no evidence of acute blood loss H/H stable hyperkalemia resolved COPD no acute exacerbation continue home inhalers on chronic prednisone - continue home dose diabetes?uncontrolled adjusted lantusand SSI.ADA diet januvia on hold follow POCs. hypothyroidism continue levothyroxine h/o CLL outpatient follow up morbid obesity recommend low-calorie diet. patient has ch incontinence -insisted for gibson for skin intergrity DVT prophylaxis:? Heparin subq dispo: Likely STR/LTC upon dc inpatient need rehab placement Time Spent With Patient Time: Total time managing care of this patient today ____ minutes. Quality Stroke Does the patient have a stroke diagnosis?: No VTE Prior VTE?: No VTE Risk Level:: Medical - moderate - high VTE Device Contraindication: Treatment Not Indicated VTE Drug Contraindication: N/A - Med Ordered
[2022-11-13 15:10] VITALS: BP 110/53; PULSE 87; RESP 20; TEMP 36.7; O2SAT 100
[2022-11-13 16:18] LABS: Glucose, Whole Blood 394 mg/dL (60-115)
[2022-11-13 19:21] VITALS: BP 106/53; PULSE 89; RESP 20; TEMP 36.7; O2SAT 99
[2022-11-13 20:05] LABS: Glucose, Whole Blood 389 mg/dL (60-115)
[2022-11-13] MEDS: Melatonin 3 MG TABLET 6 MG PO (20:38)
[2022-11-13] MEDS: Atorvastatin Calcium 10 MG TABLET PO (20:38)
[2022-11-13] MEDS: Latanoprost 0.005 % Ophth Sol 2.5 ML DROPS 1 DROP EYE-BOTH (22:26)
[2022-11-14] VITALS: BP 134/58; PULSE 80; RESP 20; TEMP 36.2; O2SAT 98
[2022-11-14] MEDS: Heparin Sodium,Porcine 5,000 UNIT/ML VIAL 5000 UNIT SUBCUT ×3 (02:05→16:38)
--- NOTE | 2022-11-14 03:08 | PC.NURSE ---
POC at HS was 389, Dr. Atkinson was made aware, covered as per sliding scale, pt provided with snacks.
[2022-11-14 04:00] VITALS: BP 113/57; PULSE 72; RESP 18; TEMP 36.1; O2SAT 98
[2022-11-14] MEDS: Levothyroxine Sodium 175 MCG TABLET PO (05:10)
[2022-11-14 06:00] VITALS: BMI 43.3
[2022-11-14 07:08] LABS: Glucose, Whole Blood 161 mg/dL (60-115)
[2022-11-14 07:46] VITALS: BP 138/64; PULSE 83; RESP 16; TEMP 36.6; O2SAT 98
[2022-11-14] MEDS: 0.9 % Sodium Chloride Flush 3 ML SYRINGE IVFLUSH ×3 (08:16→21:26)
[2022-11-14] MEDS: Insulin Glargine,Hum.rec.anlog 100 UNIT/ML 10 ML VIAL 20 UNIT SUBCUT (08:19)
[2022-11-14] MEDS: Insulin Lispro 100 UNIT/ML 3 ML VIAL SUBCUT ×6 (08:19→21:25)
[2022-11-14] MEDS: Magnesium Oxide 400 MG TABLET 200 MG PO (08:20)
[2022-11-14] MEDS: predniSONE 5 MG TABLET 10 MG PO (08:20)
[2022-11-14] MEDS: timoloL maleate 0.5 % Oph Sol 5 ML DRBTL 1 DROP EYE-RIGHT ×2 (08:21→21:28)
[2022-11-14] MEDS: Artificial Tears 15 ML DROPS 1 DROP EYE-BOTH ×2 (08:21→21:27)
[2022-11-14] MEDS: Nystatin Powder 15 GM BOTTLE 1 APPL TOPICAL ×2 (08:21→21:26)
[2022-11-14] MEDS: prednisoLONE Acetate 1 % Oph Susp 5 ML DRPBTL 1 DROP EYE-RIGHT (08:22)
[2022-11-14 11:25] LABS: Glucose, Whole Blood 330 mg/dL (60-115)
[2022-11-14 11:45] VITALS: BP 141/62; PULSE 84; RESP 16; TEMP 36.2; O2SAT 97
--- NOTE | 2022-11-14 13:12 | HO.PM.IMPN ---
Subjective Subjective Date of Service: 11/14/22 Interval History: follow up for CHF, renal failure Review of Systems denies new c/o no sob or chest pain still neg balance off diuretics Physical Exam Vital Signs: Vital Signs: Last Vital Signs Temp 97.1 F 11/14/22 11:45 Pulse 84 11/14/22 11:45 Resp 16 11/14/22 11:45 BP 141/62 H 11/14/22 11:45 Pulse Ox 97 11/14/22 11:45 O2 Del Method Room Air 11/14/22 11:45 O2 Flow Rate 97 11/05/22 03:24 FiO2 28 11/02/22 07:50 Oxygen Flow Rate 4 10/27/22 20:01 BMI result Body Mass Index 43.3 Appearing in no acute distress ?lung sounds are clear to auscultation ?heart regular rate rhythm, clear? S1, S2 ?positive bowel sounds, abdomen is soft, nontender ?neuro patient is alert x3, no focal deficits Objective Data Active Medications Acetaminophen (Acetaminophen 325 Mg Tablet) 650 mg PO Q6H PRN PRN Reason: Pain, Mild (Pain Scale 1-3) Last Admin: 11/03/22 09:27 Dose: 650 mg Documented By: CHAUNCEY Artificial Tears (Artificial Tears 15 Ml Drops) 1 drop EYE-BOTH BID [facility] Last Admin: 11/14/22 08:21 Dose: 1 drop Documented By: EMILEE Atorvastatin Calcium (Atorvastatin Calcium 10 Mg Tablet) 10 mg PO BEDTIME [facility] Last Admin: 11/13/22 20:38 Dose: 10 mg Documented By: GALDINO Bisacodyl (Bisacodyl 10 Mg Supp.Rect) 10 mg NM DAILY PRN PRN Reason: Constipation Dextrose (Dextrose 50 % 25 Gm/50 Ml Syringe) 25 gm IVPUSH Q15M PRN; Protocol PRN Reason: per Hypoglycemia Standing Ord. Docusate Sodium (Docusate Sodium 100 Mg Capsule) 100 mg PO DAILY PRN PRN Reason: Constipation Glucose (Glucose Gel 15 Gm Gel..Gram.) 15 gm PO Q15M PRN; Protocol PRN Reason: per Hypoglycemia Standing Ord. Heparin Sodium (Porcine) (Heparin Sodium,Porcine 5,000 Unit/Ml Vial) 5,000 unit SUBCUT Q8H [facility] Last Admin: 11/14/22 08:16 Dose: 5,000 unit Documented By: EMILEE Insulin Glargine (Insulin Glargine,Hum.Rec.Anlog 100 Unit/Ml 10 Ml Vial) 20 unit SUBCUT DAILY [facility] Last Admin: 11/14/22 08:19 Dose: 20 unit Documented By: EMILEE Insulin Glargine (Insulin Glargine,Hum.Rec.Anlog 100 Unit/Ml 10 Ml Vial) 15 unit SUBCUT BEDTIME [facility] Insulin Human Lispro (Insulin Lispro 100 Unit/Ml 3 Ml Vial) 0 unit SUBCUT QIDACHS [facility]; Protocol Last Admin: 11/14/22 11:45 Dose: 10 unit Documented By: ANUPAMA Latanoprost (Latanoprost 0.005 % Ophth Mona 2.5 Ml Drops) 1 drop EYE-BOTH BEDTIME [facility] Last Admin: 11/13/22 22:26 Dose: 1 drop Documented By: CAMPOSILJesse Levothyroxine Sodium (Levothyroxine Sodium 175 Mcg Tablet) 175 mcg PO DAILY@0600 [facility] Last Admin: 11/14/22 05:10 Dose: 175 mcg Documented By: GALDINO Magnesium Oxide (Magnesium Oxide 400 Mg Tablet) 200 mg PO DAILY [facility] Last Admin: 11/14/22 08:20 Dose: 200 mg Documented By: EMILEE Melatonin (Melatonin 3 Mg Tablet) 6 mg PO BEDTIME [facility] Last Admin: 11/13/22 20:38 Dose: 6 mg Documented By: GALDINO Pt Own ([Calquence ( Acalabrutinib Mal)] 100 Mg Tab 100 mg PO BID [facility] Last Admin: 11/14/22 08:20 Dose: 100 mg Documented By: EMILEE Non-Formulary Medication (Brinzolamide-Brimonidine [Simbrinza]) 1 drop EYE-RIGHT BID [facility] Nystatin (Nystatin Powder 15 Gm Bottle) 1 appl TOPICAL BID [facility]; Protocol Last Admin: 11/14/22 08:21 Dose: 1 appl Documented By: EMILEE Pharmacy Consult (Consult Rx Perform Med Rec) 1 each MISCELLANE ONCE PRN PRN Reason: Consult order Polyethylene Glycol (Polyethylene Glycol 3350 17 Gm Powd.Pack) 17 gm PO BID [facility] Last Admin: 11/14/22 08:19 Dose: Not Given Documented By: EMILEE Non-Admin Reason: Patient Refused Prednisolone Acetate (Prednisolone Acetate 1 % Oph Susp 5 Ml Drpbtl) 1 drop EYE-RIGHT DAILY [facility] Last Admin: 11/14/22 08:22 Dose: 1 drop Documented By: EMILEE Prednisone (Prednisone 5 Mg Tablet) 10 mg PO DAILY [facility] Last Admin: 11/14/22 08:20 Dose: 10 mg Documented By: EMILEE Senna (Sennosides 8.6 Mg Tablet) 17.2 mg PO DAILY PRN PRN Reason: Constipation Sodium Chloride (0.9 % Sodium Chloride Flush 3 Ml Syringe) 3 ml IVFLUSH QSHIFT [facility] Last Admin: 11/14/22 08:16 Dose: 3 ml Documented By: EMILEE Timolol Maleate (Timolol Maleate 0.5 % Oph Mona 5 Ml Drbtl) 1 drop EYE-RIGHT BID [facility] Last Admin: 11/14/22 08:21 Dose: 1 drop Documented By: EMILEE Labs 11/09/22 10:00 11/09/22 10:00 Labs: Laboratory Results - last 24 hr 11/13/22 11/13/22 11/14/22 16:15 20:01 07:03 POC Glucose 394 H* 389 H* 161 H 11/14/22 11:21 POC Glucose 330 H Assessment and Plan (1) CHF exacerbation: Status: Acute Plan 72-year-old female with past medical history of CHF, CLL, COPD, comes into the hospital with complaints of shortness of breath found to have CHF exacerbation, LEO, and hyperkalemia.?She was found to have UTI with ESBL E coli sensitive to meropenem.? Developed worsening acute on chronic renal failure with oliguria requiring temporary dialysis catheter and dialysis treatments in ICU? ICU step down patient discussed with Dr. Tesfaye.? She did require respiratory support with bipap but has been weaned. Has LATONYA diagnosed by no apneic episodes reported by smoked meat preparer. While in ICU developed hyperkalemia and uremia and secondarily bradycardia with Wenckebach.? As creatinine has improved, Wenckebach has resolved with very occasional dropped QRS is noted.? Bradycardia has also resolved.? Vitals are now stable and dialysis catheter has been removed.? [place] [facility] [place]. Acute pyelonephritis with left hydronephrosis urine culture ESBL e.coli , on meropenem started on 10/28, plan to complete 10 day course of antibiotics, end date 11/06 s/p b/l ureteral stent placement on11/08/22. acute diastolic CHF exacerbation. Resolved echo showed normal EF,? Impaired diastolic function, inferior vena cava severely dilated and does not collapse with inspiration suggestive of right heart strain s/p diuresis and dialysis in ICU euvolemic total i/o ,10 liters neg hold bumex for today ? chronic hypoxic respiratory failure currently on room air patient with history of obstructive sleep apnea currently not on CPAP Mobitz 1 second degree heart block HR initially in 30s/40s improved to 80s/90s with treatment of LEO/CHF. tsh 0.99 metoprolol on hold,s/p dopamine . cardiology consult appreciated -no need for bb . LEO on CKD 3 multifactorial due to cardiorenal syndrome, ATN, obstructive uropathy Status post temporary dialysis catheter and dialysis while in ICU. Dialysis catheter subsequently removed and renal function improving, but not quite back to baseline Nephrology following acute on chronic normocytic anemia r/t acute illness. no evidence of acute blood loss H/H stable hyperkalemia resolved COPD no acute exacerbation continue home inhalers on chronic prednisone - continue home dose diabetes?uncontrolled adjusted lantusand SSI.ADA diet januvia on hold follow POCs. hypothyroidism continue levothyroxine h/o CLL outpatient follow up morbid obesity recommend low-calorie diet. patient has ch incontinence -insisted for gibson for skin intergrity DVT prophylaxis:? Heparin subq dispo: Likely STR/LTC upon dc inpatient need rehab placement Time Spent With Patient Time: Total time managing care of this patient today ____ minutes. Quality Stroke Does the patient have a stroke diagnosis?: No VTE Prior VTE?: No VTE Risk Level:: Medical - moderate - high VTE Device Contraindication: Treatment Not Indicated VTE Drug Contraindication: N/A - Med Ordered
[2022-11-14 15:04] VITALS: BP 133/60; PULSE 94; RESP 18; TEMP 36.6; O2SAT 98
[2022-11-14 16:11] LABS: Glucose, Whole Blood 424 mg/dL (60-115)
[2022-11-14 20:00] VITALS: BP 138/63; PULSE 93; RESP 16; TEMP 36.8; O2SAT 99
[2022-11-14 21:06] LABS: Glucose, Whole Blood 384 mg/dL (60-115)
[2022-11-14] MEDS: Insulin Glargine,Hum.rec.anlog 100 UNIT/ML 10 ML VIAL 15 UNIT SUBCUT (21:24)
[2022-11-14] MEDS: Atorvastatin Calcium 10 MG TABLET PO (21:26)
[2022-11-14] MEDS: polyethylene glycoL 3350 17 GM POWD.PACK PO (21:26)
[2022-11-14] MEDS: Melatonin 3 MG TABLET 6 MG PO (21:26)
[2022-11-14] MEDS: Latanoprost 0.005 % Ophth Sol 2.5 ML DROPS 1 DROP EYE-BOTH (21:27)
[2022-11-15] VITALS (7 sets, daily range): BP systolic 110–153; BP diastolic 59–65; PULSE 76–107; RESP 14–86; TEMP 35.8–36.9; O2SAT 94–100; BMI 43.7
[2022-11-15] MEDS: Heparin Sodium,Porcine 5,000 UNIT/ML VIAL 5000 UNIT SUBCUT ×3 (02:28→17:13)
[2022-11-15] MEDS: Levothyroxine Sodium 175 MCG TABLET PO (05:58)
[2022-11-15] MEDS: Magnesium Oxide 400 MG TABLET 200 MG PO (08:39)
[2022-11-15] MEDS: predniSONE 5 MG TABLET 10 MG PO (08:40)
[2022-11-15] MEDS: Insulin Lispro 100 UNIT/ML 3 ML VIAL SUBCUT ×7 (08:40→21:35)
[2022-11-15] MEDS: Nystatin Powder 15 GM BOTTLE 1 APPL TOPICAL ×2 (08:41→21:35)
[2022-11-15] MEDS: Insulin Glargine,Hum.rec.anlog 100 UNIT/ML 10 ML VIAL 20 UNIT SUBCUT (08:41)
[2022-11-15] MEDS: prednisoLONE Acetate 1 % Oph Susp 5 ML DRPBTL 1 DROP EYE-RIGHT (08:42)
[2022-11-15] MEDS: timoloL maleate 0.5 % Oph Sol 5 ML DRBTL 1 DROP EYE-RIGHT ×2 (08:42→21:36)
[2022-11-15] MEDS: 0.9 % Sodium Chloride Flush 3 ML SYRINGE IVFLUSH ×3 (08:43→21:34)
[2022-11-15] MEDS: Artificial Tears 15 ML DROPS 1 DROP EYE-BOTH ×2 (08:43→21:36)
[2022-11-15 09:22] LABS: Glucose, Whole Blood 107 mg/dL (60-115)
[2022-11-15 09:38] LABS: Anion Gap 13 (12-20); Blood Urea Nitrogen 58 mg/dL (9-16); Calcium 9.1 mg/dL (8.4-10.2); Carbon Dioxide 29 mmol/L (22-29); Chloride 102 mmol/L (96-108); Creatinine Clr Calc Pharmacy 48.9; Estimated Glomerular Filt Rate 37; Glucose Random 96 mg/dL (60-115); Potassium 3.5 mmol/L (3.3-5.1); Sodium 140 mmol/L (135-145)
--- NOTE | 2022-11-15 09:59 | PM.PNNEP ---
Subjective Subjective Date of Service: 11/15/22 Principal diagnosis: Acute kidney injury, bradycardia, decompensated heart failure. Interval history: Events noted. All recent data reviewed Physical Exam Vital Signs: Vital Signs: Last Vital Signs Temp 98.5 F 11/15/22 08:00 Pulse 107 H 11/15/22 08:00 Resp 14 11/15/22 08:00 BP 153/65 H 11/15/22 08:00 Pulse Ox 98 11/15/22 08:00 O2 Del Method Room Air 11/15/22 08:00 O2 Flow Rate 97 11/05/22 03:24 FiO2 28 11/02/22 07:50 Oxygen Flow Rate 4 10/27/22 20:01 BMI result Body Mass Index 43.7 Const: General: comfortable Eyes: EOM: EOMs intact bilaterally Resp: Auscultation: diminished lung sounds Cardio: Rate: regular rate GI: Palpation (GI): Soft to palpation Neuro: General: moves all extremities Objective Data Labs 11/09/22 10:00 11/15/22 06:52 Labs: Laboratory Results - last 24 hr 11/14/22 11/14/22 11/14/22 11:21 16:08 20:54 Sodium Potassium Chloride Carbon Dioxide Anion Gap BUN Creatinine Estim Creat Clear Calc Estimated GFR POC Glucose 330 H 424 H* 384 H* Random Glucose Calcium 11/15/22 11/15/22 06:52 07:36 Sodium 140 Potassium 3.5 Chloride 102 Carbon Dioxide 29 Anion Gap 13 BUN 58 H Creatinine 1.41 H Estim Creat Clear Calc 48.9 Estimated GFR 37 POC Glucose 107 Random Glucose 96 Calcium 9.1 Microbiology Microbiology Results: Microbiology 10/31/22 09:09 Blood - Venous Blood Culture - Final No growth after 5 days. 10/31/22 09:13 Blood - Venous Blood Culture - Final No growth after 5 days. 10/28/22 Unknown Urine clean catch - Urine malik top Urine Culture - Final Escherichia coli Procedures Date of Service Date of Service: 11/15/22 Assessment & Plan Assessment and plan (1) LEO (acute kidney injury): Status: Acute Assessment and Plan: LEO due to compromise in renal perfusion+ obstruction Acute pyelonephritis with left hydronephrosis urine culture ESBL e.coli , Was on meropenem s/p b/l ureteral stent placement on 11/08/22. Had acute diastolic CHF exacerbation which is resolved s/p diuresis and needing dialysis in ICU euvolemic; Over 10 liters neg; Renal function improving C/W rest of current management Progress Note: Quality Stroke Does the patient have a stroke diagnosis?: No
--- NOTE | 2022-11-15 10:45 | MHC.EVENTN ---
gibson cath was removed at 10:45. pt is due to void at 16:45-18:45
[2022-11-15 11:45] LABS: Glucose, Whole Blood 169 mg/dL (60-115)
[2022-11-15] MEDS: polyethylene glycoL 3350 17 GM POWD.PACK PO ×2 (11:55→21:34)
--- NOTE | 2022-11-15 14:51 | MHC.CM.PN ---
PT AWAITING SNF PLACEMENT PVR IS INTERESTED HOWEVER WORKING TO DETERMINE HOW MANY MCR DAYS THE PT HAS LEFT [facility] UNABLE TO OBTAIN INFORMATION TODAY AND WILL CONTINUE TO WORK ON IT
--- NOTE | 2022-11-15 15:12 | P.PNIM_ITS ---
Subjective Subjective Date of Service: 11/15/22 Interval History: follow up for CHF, renal failure Review of Systems denies new c/o no sob or chest pain still neg balance off diuretics Physical Exam Vital Signs: Vital Signs: Last Vital Signs Temp 97.4 F 11/15/22 11:38 Pulse 81 11/15/22 11:38 Resp 18 11/15/22 11:38 BP 134/60 11/15/22 11:38 Pulse Ox 99 11/15/22 11:38 O2 Del Method Room Air 11/15/22 11:38 O2 Flow Rate 97 11/05/22 03:24 FiO2 28 11/02/22 07:50 Oxygen Flow Rate 4 10/27/22 20:01 BMI result Body Mass Index 43.7 Appearing in no acute distress ?lung sounds are clear to auscultation ?heart regular rate rhythm, clear? S1, S2 ?positive bowel sounds, abdomen is soft, nontender ?neuro patient is alert x3, no focal deficits Objective Data Active Medications Acetaminophen (Acetaminophen 325 Mg Tablet) 650 mg PO Q6H PRN PRN Reason: Pain, Mild (Pain Scale 1-3) Last Admin: 11/03/22 09:27 Dose: 650 mg Documented By: CHAUNCEY Artificial Tears (Artificial Tears 15 Ml Drops) 1 drop EYE-BOTH BID [facility] Last Admin: 11/15/22 08:43 Dose: 1 drop Documented By: MARY GRACE Atorvastatin Calcium (Atorvastatin Calcium 10 Mg Tablet) 10 mg PO BEDTIME [facility] Last Admin: 11/14/22 21:26 Dose: 10 mg Documented By: ELSIERISJesse Bisacodyl (Bisacodyl 10 Mg Supp.Rect) 10 mg [place] DAILY PRN PRN Reason: Constipation Dextrose (Dextrose 50 % 25 Gm/50 Ml Syringe) 25 gm IVPUSH Q15M PRN; Protocol PRN Reason: per Hypoglycemia Standing Ord. Docusate Sodium (Docusate Sodium 100 Mg Capsule) 100 mg PO DAILY PRN PRN Reason: Constipation Glucose (Glucose Gel 15 Gm Gel..Gram.) 15 gm PO Q15M PRN; Protocol PRN Reason: per Hypoglycemia Standing Ord. Heparin Sodium (Porcine) (Heparin Sodium,Porcine 5,000 Unit/Ml Vial) 5,000 unit SUBCUT Q8H [facility] Last Admin: 11/15/22 08:43 Dose: 5,000 unit Documented By: MARY GRACE Insulin Glargine (Insulin Glargine,Hum.Rec.Anlog 100 Unit/Ml 10 Ml Vial) 20 unit SUBCUT DAILY [facility] Last Admin: 11/15/22 08:41 Dose: 20 unit Documented By: MARY GRACE Insulin Glargine (Insulin Glargine,Hum.Rec.Anlog 100 Unit/Ml 10 Ml Vial) 15 unit SUBCUT BEDTIME [facility] Last Admin: 11/14/22 21:24 Dose: 15 unit Documented By: REFUGIO Insulin Human Lispro (Insulin Lispro 100 Unit/Ml 3 Ml Vial) 0 unit SUBCUT QIDACHS [facility]; Protocol Last Admin: 11/15/22 11:55 Dose: 2 unit Documented By: MARY GRACE Insulin Human Lispro (Insulin Lispro 100 Unit/Ml 3 Ml Vial) 5 unit SUBCUT QIDACHS [facility] Last Admin: 11/15/22 11:55 Dose: 5 unit Documented By: MARY GRACE Latanoprost (Latanoprost 0.005 % Ophth Mona 2.5 Ml Drops) 1 drop EYE-BOTH BEDTIME [facility] Last Admin: 11/14/22 21:27 Dose: 1 drop Documented By: REFUGIO Levothyroxine Sodium (Levothyroxine Sodium 175 Mcg Tablet) 175 mcg PO DAILY@0600 [facility] Last Admin: 11/15/22 05:58 Dose: 175 mcg Documented By: REFUGIO Magnesium Oxide (Magnesium Oxide 400 Mg Tablet) 200 mg PO DAILY [facility] Last Admin: 11/15/22 08:39 Dose: 200 mg Documented By: MARY GRACE Melatonin (Melatonin 3 Mg Tablet) 6 mg PO BEDTIME [facility] Last Admin: 11/14/22 21:26 Dose: 6 mg Documented By: REFUGIO Pt Own ([Calquence ( Acalabrutinib Mal)] 100 Mg Tab 100 mg PO BID [facility] Last Admin: 11/15/22 08:38 Dose: 100 mg Documented By: MARY GRACE Non-Formulary Medication (Brinzolamide-Brimonidine [Simbrinza]) 1 drop EYE- RIGHT BID [facility] Nystatin (Nystatin Powder 15 Gm Bottle) 1 appl TOPICAL BID [facility]; Protocol Last Admin: 11/15/22 08:41 Dose: 1 appl Documented By: MARY GRACE Pharmacy Consult (Consult Rx Perform Med Rec) 1 each MISCELLANE ONCE PRN PRN Reason: Consult order Polyethylene Glycol (Polyethylene Glycol 3350 17 Gm Powd.Pack) 17 gm PO BID [facility] Last Admin: 11/15/22 11:55 Dose: 17 gm Documented By: MARY GRACE Prednisolone Acetate (Prednisolone Acetate 1 % Oph Susp 5 Ml Drpbtl) 1 drop EYE-RIGHT DAILY [facility] Last Admin: 11/15/22 08:42 Dose: 1 drop Documented By: MARY GRACE Prednisone (Prednisone 5 Mg Tablet) 10 mg PO DAILY [facility] Last Admin: 11/15/22 08:40 Dose: 10 mg Documented By: MARY GRACE Senna (Sennosides 8.6 Mg Tablet) 17.2 mg PO DAILY PRN PRN Reason: Constipation Sodium Chloride (0.9 % Sodium Chloride Flush 3 Ml Syringe) 3 ml IVFLUSH QSHIFT [facility] Last Admin: 11/15/22 08:43 Dose: 3 ml Documented By: MARY GRACE Timolol Maleate (Timolol Maleate 0.5 % Oph Mona 5 Ml Drbtl) 1 drop EYE-RIGHT BID [facility] Last Admin: 11/15/22 08:42 Dose: 1 drop Documented By: MARY GRACE Labs 11/09/22 10:00 11/15/22 06:52 Labs: Laboratory Results - last 24 hr 11/14/22 11/14/22 11/15/22 16:08 20:54 06:52 Anion Gap 13 Estim Creat Clear Calc 48.9 Estimated GFR 37 POC Glucose 424 H* 384 H* Random Glucose 96 Calcium 9.1 11/15/22 11/15/22 07:36 11:36 Anion Gap Estim Creat Clear Calc Estimated GFR POC Glucose 107 169 H Random Glucose Calcium Assessment and Plan (1) LEO (acute kidney injury): Status: Acute (2) CHF exacerbation: Status: Acute Plan 72-year-old female with past medical history of CHF, CLL, COPD, comes into the hospital with complaints of shortness of breath found to have CHF exacerbation, LEO, and hyperkalemia.?She was found to have UTI with ESBL E coli sensitive to meropenem.? Developed worsening acute on chronic renal failure with oliguria requiring temporary dialysis catheter and dialysis treatments in ICU? ICU step down patient discussed with Dr. Tesfaye.? She did require respiratory support with bipap but has been weaned. Has LATONYA diagnosed by no apneic episodes reported by furniture technician. While in ICU developed hyperkalemia and uremia and secondarily bradycardia with Wenckebach.? As creatinine has improved, Wenckebach has resolved with very occasional dropped QRS is noted.? Bradycardia has also resolved.? Vitals are now stable and dialysis catheter has been removed.? She is being transferred to [facility] [place] to complete course of meropenem. Acute pyelonephritis with left hydronephrosis urine culture ESBL e.coli , on meropenem started on 10/28, plan to complete 10 day course of antibiotics, end date 11/06 s/p b/l ureteral stent placement on11/08/22. acute diastolic CHF exacerbation. Resolved echo showed normal EF,? Impaired diastolic function, inferior vena cava severely dilated and does not collapse with inspiration suggestive of right heart strain s/p diuresis and dialysis in ICU euvolemic total i/o ,10 liters neg hold bumex for today ? chronic hypoxic respiratory failure currently on room air patient with history of obstructive sleep apnea currently not on CPAP Mobitz 1 second degree heart block HR initially in 30s/40s improved to 80s/90s with treatment of LEO/CHF. tsh 0.99 metoprolol on hold,s/p dopamine . ?cardiology consult appreciated -no need for bb . LEO on CKD 3 multifactorial due to cardiorenal syndrome, ATN, obstructive uropathy Status post temporary dialysis catheter and dialysis while in ICU. Dialysis catheter subsequently removed and renal function improving, but not quite back to baseline Nephrology following acute on chronic normocytic anemia r/t acute illness. no evidence of acute blood loss H/H stable hyperkalemia resolved COPD no acute exacerbation continue home inhalers on chronic prednisone - continue home dose diabetes?uncontrolled adjusted? lantusand SSI.ADA diet januvia on hold follow POCs. hypothyroidism continue levothyroxine h/o CLL outpatient follow up morbid obesity recommend low-calorie diet. patient has ch incontinence -insisted for gibson for skin intergrity DVT prophylaxis:? Heparin subq dispo: Likely STR/LTC upon dc inpatient? need rehab placement Time Spent With Patient Time: Total time managing care of this patient today ____ minutes. Quality Stroke Does the patient have a stroke diagnosis?: No VTE Prior VTE?: No VTE Risk Level:: Medical - moderate - high VTE Device Contraindication: Treatment Not Indicated VTE Drug Contraindication: N/A - Med Ordered
[2022-11-15 16:14] LABS: Glucose, Whole Blood 297 mg/dL (60-115)
[2022-11-15] MEDS: Bumetanide 1 MG TABLET 2 MG PO (17:12)
[2022-11-15] MEDS: ondansetron HCL 4 MG/2 ML VIAL IVPUSH (18:53)
[2022-11-15 20:56] LABS: Glucose, Whole Blood 290 mg/dL (60-115)
[2022-11-15] MEDS: Insulin Glargine,Hum.rec.anlog 100 UNIT/ML 10 ML VIAL 15 UNIT SUBCUT (21:34)
[2022-11-15] MEDS: Melatonin 3 MG TABLET 6 MG PO (21:34)
[2022-11-15] MEDS: Atorvastatin Calcium 10 MG TABLET PO (21:34)
[2022-11-15] MEDS: Latanoprost 0.005 % Ophth Sol 2.5 ML DROPS 1 DROP EYE-BOTH (21:36)
--- NOTE | 2022-11-15 21:52 | PC.NURSE ---
At this time this RN contacted MD. Yazan in concern of widespread bruising to upper and lower extremities and across abdomen. Patient has heparin ordered q8h.
[2022-11-16] MEDS: Heparin Sodium,Porcine 5,000 UNIT/ML VIAL 5000 UNIT SUBCUT ×3 (00:58→17:06)
[2022-11-16 03:37] VITALS: BP 145/60; PULSE 77; RESP 20; TEMP 36.1; O2SAT 96
[2022-11-16 06:00] VITALS: BMI 43.5
[2022-11-16] MEDS: Levothyroxine Sodium 175 MCG TABLET PO (06:39)
[2022-11-16 07:34] VITALS: BP 129/60; PULSE 76; RESP 20; TEMP 36.2; O2SAT 100
[2022-11-16 07:53] LABS: Glucose, Whole Blood 197 mg/dL (60-115)
[2022-11-16] MEDS: predniSONE 5 MG TABLET 10 MG PO (08:19)
[2022-11-16] MEDS: polyethylene glycoL 3350 17 GM POWD.PACK PO ×2 (08:19→19:43)
[2022-11-16] MEDS: Insulin Glargine,Hum.rec.anlog 100 UNIT/ML 10 ML VIAL 20 UNIT SUBCUT (08:19)
[2022-11-16] MEDS: Insulin Lispro 100 UNIT/ML 3 ML VIAL SUBCUT ×8 (08:19→19:44)
[2022-11-16] MEDS: Magnesium Oxide 400 MG TABLET 200 MG PO (08:20)
[2022-11-16] MEDS: Bumetanide 1 MG TABLET 2 MG PO ×2 (08:20→17:02)
[2022-11-16] MEDS: Artificial Tears 15 ML DROPS 1 DROP EYE-BOTH ×2 (08:21→19:45)
[2022-11-16] MEDS: timoloL maleate 0.5 % Oph Sol 5 ML DRBTL 1 DROP EYE-RIGHT ×2 (08:21→19:44)
[2022-11-16] MEDS: prednisoLONE Acetate 1 % Oph Susp 5 ML DRPBTL 1 DROP EYE-RIGHT (08:21)
[2022-11-16] MEDS: Nystatin Powder 15 GM BOTTLE 1 APPL TOPICAL ×2 (08:21→19:45)
[2022-11-16] MEDS: 0.9 % Sodium Chloride Flush 3 ML SYRINGE IVFLUSH ×3 (08:24→19:43)
[2022-11-16 11:24] VITALS: BP 110/52; PULSE 84; RESP 20; TEMP 36.2; O2SAT 97
[2022-11-16 11:41] LABS: Glucose, Whole Blood 285 mg/dL (60-115)
--- NOTE | 2022-11-16 12:30 | PM.PNNEP ---
Subjective Subjective Date of Service: 11/16/22 Principal diagnosis: Acute kidney injury, bradycardia, decompensated heart failure. Interval history: Events noted. All recent data reviewed Physical Exam Vital Signs: Vital Signs: Last Vital Signs Temp 97.1 F 11/16/22 11:24 Pulse 84 11/16/22 11:24 Resp 20 11/16/22 11:24 BP 110/52 L 11/16/22 11:24 Pulse Ox 97 11/16/22 11:24 O2 Del Method Room Air 11/16/22 11:24 O2 Flow Rate 97 11/05/22 03:24 FiO2 28 11/02/22 07:50 Oxygen Flow Rate 4 10/27/22 20:01 BMI result Body Mass Index 43.5 Const: General: no acute distress Eyes: EOM: EOMs intact bilaterally Resp: Auscultation: diminished lung sounds Cardio: Rate: regular rate GI: Palpation (GI): Soft to palpation Neuro: General: moves all extremities Objective Data Labs 11/09/22 10:00 11/15/22 06:52 Labs: Laboratory Results - last 24 hr 11/15/22 11/15/22 11/16/22 16:10 20:39 07:48 POC Glucose 297 H 290 H 197 H 11/16/22 11:34 POC Glucose 285 H Microbiology Microbiology Results: Microbiology 10/31/22 09:09 Blood - Venous Blood Culture - Final No growth after 5 days. 10/31/22 09:13 Blood - Venous Blood Culture - Final No growth after 5 days. 10/28/22 Unknown Urine clean catch - Urine malik top Urine Culture - Final Escherichia coli Procedures Date of Service Date of Service: 11/16/22 Assessment & Plan Assessment and plan (1) LEO (acute kidney injury): Status: Acute Assessment and Plan: LEO due to compromise in renal perfusion+ obstruction Acute pyelonephritis with left hydronephrosis urine culture ESBL e.coli , Was on meropenem s/p b/l ureteral stent placement on 11/08/22. Had acute diastolic CHF exacerbation which is resolved s/p diuresis and needing? dialysis in ICU Renal function improving C/W rest of current management Time Spent With Patient Time: . Progress Note: Quality Stroke Does the patient have a stroke diagnosis?: No
--- NOTE | 2022-11-16 15:06 | P.PNIM_ITS ---
Subjective Subjective Date of Service: 11/16/22 Interval History: follow up for CHF, renal failure Review of Systems denies new c/o no sob or chest pain still neg balance off diuretics Physical Exam Vital Signs: Vital Signs: Last Vital Signs Temp 97.1 F 11/16/22 11:24 Pulse 84 11/16/22 11:24 Resp 20 11/16/22 11:24 BP 110/52 L 11/16/22 11:24 Pulse Ox 97 11/16/22 11:24 O2 Del Method Room Air 11/16/22 11:24 O2 Flow Rate 97 11/05/22 03:24 FiO2 28 11/02/22 07:50 Oxygen Flow Rate 4 10/27/22 20:01 BMI result Body Mass Index 43.5 Appearing in no acute distress ?lung sounds are clear to auscultation ?heart regular rate rhythm, clear? S1, S2 ?positive bowel sounds, abdomen is soft, nontender ?neuro patient is alert x3, no focal deficits Objective Data Active Medications Acetaminophen (Acetaminophen 325 Mg Tablet) 650 mg PO Q6H PRN PRN Reason: Pain, Mild (Pain Scale 1-3) Last Admin: 11/03/22 09:27 Dose: 650 mg Documented By: CHAUNCEY Artificial Tears (Artificial Tears 15 Ml Drops) 1 drop EYE-BOTH BID [facility] Last Admin: 11/16/22 08:21 Dose: 1 drop Documented By: MARY GRACE Atorvastatin Calcium (Atorvastatin Calcium 10 Mg Tablet) 10 mg PO BEDTIME [facility] Last Admin: 11/15/22 21:34 Dose: 10 mg Documented By: DILLAN-CHAVA Bisacodyl (Bisacodyl 10 Mg Supp.Rect) 10 mg [place] DAILY PRN PRN Reason: Constipation Bumetanide (Bumetanide 1 Mg Tablet) 2 mg PO BID@0800,1700 [facility]; Protocol Last Admin: 11/16/22 08:20 Dose: 2 mg Documented By: MARY GRACE Dextrose (Dextrose 50 % 25 Gm/50 Ml Syringe) 25 gm IVPUSH Q15M PRN; Protocol PRN Reason: per Hypoglycemia Standing Ord. Docusate Sodium (Docusate Sodium 100 Mg Capsule) 100 mg PO DAILY PRN PRN Reason: Constipation Glucose (Glucose Gel 15 Gm Gel..Gram.) 15 gm PO Q15M PRN; Protocol PRN Reason: per Hypoglycemia Standing Ord. Heparin Sodium (Porcine) (Heparin Sodium,Porcine 5,000 Unit/Ml Vial) 5,000 unit SUBCUT Q8H [facility] Last Admin: 11/16/22 08:29 Dose: 5,000 unit Documented By: MARY GRACE Insulin Glargine (Insulin Glargine,Hum.Rec.Anlog 100 Unit/Ml 10 Ml Vial) 20 unit SUBCUT DAILY [facility] Last Admin: 11/16/22 08:19 Dose: 20 unit Documented By: MARY GRACE Insulin Glargine (Insulin Glargine,Hum.Rec.Anlog 100 Unit/Ml 10 Ml Vial) 10 unit SUBCUT BEDTIME [facility] Insulin Human Lispro (Insulin Lispro 100 Unit/Ml 3 Ml Vial) 0 unit SUBCUT QIDACHS [facility]; Protocol Last Admin: 11/16/22 11:54 Dose: 8 unit Documented By: MARY GRACE Insulin Human Lispro (Insulin Lispro 100 Unit/Ml 3 Ml Vial) 5 unit SUBCUT QID ACHS [facility] Last Admin: 11/16/22 11:54 Dose: 5 unit Documented By: MARY GRACE Latanoprost (Latanoprost 0.005 % Ophth Mona 2.5 Ml Drops) 1 drop EYE-BOTH BEDTIME [facility] Last Admin: 11/15/22 21:36 Dose: 1 drop Documented By: HEAVEN Levothyroxine Sodium (Levothyroxine Sodium 175 Mcg Tablet) 175 mcg PO DAILY@0600 [facility] Last Admin: 11/16/22 06:39 Dose: 175 mcg Documented By: AKIL Magnesium Oxide (Magnesium Oxide 400 Mg Tablet) 200 mg PO DAILY [facility] Last Admin: 11/16/22 08:20 Dose: 200 mg Documented By: MARY GRACE Melatonin (Melatonin 3 Mg Tablet) 6 mg PO BEDTIME [facility] Last Admin: 11/15/22 21:34 Dose: 6 mg Documented By: HEAVEN Pt Own ([Calquence ( Acalabrutinib Mal)] 100 Mg Tab 100 mg PO BID [facility] Last Admin: 11/16/22 08:18 Dose: 100 mg Documented By: MARY GRACE Non-Formulary Medication (Brinzolamide-Brimonidine [Simbrinza]) 1 drop EYE- RIGHT BID [facility] Nystatin (Nystatin Powder 15 Gm Bottle) 1 appl TOPICAL BID [facility]; Protocol Last Admin: 11/16/22 08:21 Dose: 1 appl Documented By: MARY GRACE Pharmacy Consult (Consult Rx Perform Med Rec) 1 each MISCELLANE ONCE PRN PRN Reason: Consult order Polyethylene Glycol (Polyethylene Glycol 3350 17 Gm Powd.Pack) 17 gm PO BID [facility] Last Admin: 11/16/22 08:19 Dose: 17 gm Documented By: MARY GRACE Prednisolone Acetate (Prednisolone Acetate 1 % Oph Susp 5 Ml Drpbtl) 1 drop EYE-RIGHT DAILY [facility] Last Admin: 11/16/22 08:21 Dose: 1 drop Documented By: MARY GRACE Prednisone (Prednisone 5 Mg Tablet) 10 mg PO DAILY [facility] Last Admin: 11/16/22 08:19 Dose: 10 mg Documented By: MARY GRACE Senna (Sennosides 8.6 Mg Tablet) 17.2 mg PO DAILY PRN PRN Reason: Constipation Sodium Chloride (0.9 % Sodium Chloride Flush 3 Ml Syringe) 3 ml IVFLUSH QSHIFT [facility] Last Admin: 11/16/22 08:24 Dose: 3 ml Documented By: MARY GRACE Timolol Maleate (Timolol Maleate 0.5 % Oph Mona 5 Ml Drbtl) 1 drop EYE-RIGHT BID [facility] Last Admin: 11/16/22 08:21 Dose: 1 drop Documented By: MARY GRACE Labs 11/09/22 10:00 11/15/22 06:52 Labs: Laboratory Results - last 24 hr 11/15/22 11/15/22 11/16/22 16:10 20:39 07:48 POC Glucose 297 H 290 H 197 H 11/16/22 11:34 POC Glucose 285 H Assessment and Plan (1) LEO (acute kidney injury): Status: Acute (2) CHF exacerbation: Status: Acute Plan 72-year-old female with past medical history of CHF, CLL, COPD, comes into the hospital with complaints of shortness of breath found to have CHF exacerbation, LEO, and hyperkalemia.?She was found to have UTI with ESBL E coli sensitive to meropenem.? Developed worsening acute on chronic renal failure with oliguria requiring temporary dialysis catheter and dialysis treatments in ICU? ICU step down patient discussed with Dr. Tesfaye.? She did require respiratory support with bipap but has been weaned. Has LATONYA diagnosed by no apneic episodes reported by supply chain systems manager. While in ICU developed hyperkalemia and uremia and secondarily bradycardia with Wenckebach.? As creatinine has improved, Wenckebach has resolved with very occasional dropped QRS is noted.? Bradycardia has also resolv ed.? Vitals are now stable and dialysis catheter has been removed.? She is being transferred to [facility] [place] to complete course of meropenem. Acute pyelonephritis with left hydronephrosis urine culture ESBL e.coli , on meropenem started on 10/28, plan to complete 10 day course of antibiotics, end date 11/06 s/p b/l ureteral stent placement on11/08/22. acute diastolic CHF exacerbation. Resolved echo showed normal EF,? Impaired diastolic function, inferior vena cava severely dilated and does not collapse with inspiration suggestive of right heart strain s/p diuresis and dialysis in ICU euvolemic total i/o ,12 liters neg hold bumex for today ? chronic hypoxic respiratory failure currently on room air patient with history of obstructive sleep apnea currently not on CPAP Mobitz 1 second degree heart block HR initially in 30s/40s improved to 80s/90s with treatment of LEO/CHF. tsh 0.99 metoprolol on hold,s/p dopamine . ?cardiology consult appreciated -no need for bb . LEO on CKD 3 multifactorial due to cardiorenal syndrome, ATN, obstructive uropathy Status post temporary dialysis catheter and dialysis while in ICU. Dialysis catheter subsequently removed and renal function improving, but not quite back to baseline Nephrology following acute on chronic normocytic anemia r/t acute illness. no evidence of acute blood loss H/H stable hyperkalemia resolved COPD no acute exacerbation continue home inhalers on chronic prednisone - continue home dose diabetes?uncontrolled adjusted? lantusand SSI.ADA diet januvia on hold follow POCs. hypothyroidism continue levothyroxine h/o CLL outpatient follow up morbid obesity recommend low-calorie diet. patient has ch incontinence -insisted for gibson for skin intergrity DVT prophylaxis:? Heparin subq dispo: Likely STR/LTC upon dc inpatient? need rehab placement Time Spent With Patient Time: Total time managing care of this patient today ____ minutes. Quality Stroke Does the patient have a stroke diagnosis?: No VTE Prior VTE?: No VTE Risk Level:: Medical - moderate - high VTE Device Contraindication: Treatment Not Indicated VTE Drug Contraindication: N/A - Med Ordered
[2022-11-16 16:02] VITALS: BP 121/58; PULSE 85; RESP 14; TEMP 36.4; O2SAT 100
[2022-11-16 16:23] LABS: Glucose, Whole Blood 282 mg/dL (60-115)
[2022-11-16 19:05] VITALS: BP 130/59; PULSE 91; RESP 20; TEMP 36.2; O2SAT 100
[2022-11-16 19:34] LABS: Glucose, Whole Blood 324 mg/dL (60-115)
[2022-11-16] MEDS: Atorvastatin Calcium 10 MG TABLET PO (19:43)
[2022-11-16] MEDS: Melatonin 3 MG TABLET 6 MG PO (19:43)
[2022-11-16] MEDS: Insulin Glargine,Hum.rec.anlog 100 UNIT/ML 10 ML VIAL 10 UNIT SUBCUT (19:44)
[2022-11-16] MEDS: Latanoprost 0.005 % Ophth Sol 2.5 ML DROPS 1 DROP EYE-BOTH (19:45)
--- NOTE | 2022-11-16 22:39 | PC.NURSE ---
Peripheral IV blown adn removed. MD Yazan. okay'd to keep patient without peripheral IV access at this time.
[2022-11-16 23:39] VITALS: BP 140/58; PULSE 81; RESP 20; TEMP 36.1; O2SAT 97
[2022-11-17] MEDS: Heparin Sodium,Porcine 5,000 UNIT/ML VIAL 5000 UNIT SUBCUT ×3 (01:40→16:32)
[2022-11-17 04:00] VITALS: BP 143/63; PULSE 86; RESP 18; TEMP 36.1; O2SAT 97
[2022-11-17 06:00] VITALS: BMI 44.5
[2022-11-17] MEDS: Levothyroxine Sodium 175 MCG TABLET PO (06:12)
[2022-11-17 07:10] VITALS: BP 139/60; PULSE 88; RESP 17; TEMP 35.7; O2SAT 97
[2022-11-17 07:52] LABS: Glucose, Whole Blood 194 mg/dL (60-115)
[2022-11-17] MEDS: Bumetanide 1 MG TABLET 2 MG PO ×2 (08:18→16:32)
[2022-11-17] MEDS: predniSONE 1 MG TABLET 6 MG PO (08:19)
[2022-11-17] MEDS: Insulin Glargine,Hum.rec.anlog 100 UNIT/ML 10 ML VIAL 20 UNIT SUBCUT (08:19)
[2022-11-17] MEDS: polyethylene glycoL 3350 17 GM POWD.PACK PO (08:19)
[2022-11-17] MEDS: Magnesium Oxide 400 MG TABLET 200 MG PO (08:19)
[2022-11-17] MEDS: Insulin Lispro 100 UNIT/ML 3 ML VIAL SUBCUT ×8 (08:20→20:04)
[2022-11-17] MEDS: Nystatin Powder 15 GM BOTTLE 1 APPL TOPICAL ×2 (08:21→20:05)
[2022-11-17] MEDS: prednisoLONE Acetate 1 % Oph Susp 5 ML DRPBTL 1 DROP EYE-RIGHT (08:23)
[2022-11-17] MEDS: timoloL maleate 0.5 % Oph Sol 5 ML DRBTL 1 DROP EYE-RIGHT ×2 (08:23→20:04)
[2022-11-17] MEDS: Artificial Tears 15 ML DROPS 1 DROP EYE-BOTH ×2 (08:23→20:05)
--- NOTE | 2022-11-17 10:59 | MHC.CLN ---
F/U PT WITH INCREASED NUTRITION RISK R/T PRESSURE INJURY PO INTAKE 100% DIET RX: REGULAR-PT MAY BENEFIT FROM 1800DM 2GM NA DIET R/T DM AND CHF/CKD PT RECEIVING ENSURE MAX BID TO PROMOTE WOUND HEALING SUPP TO PROVIDE 300KCALS, 60G PROTEIN WITH 100% ACCEPTANCE MONITOR PO INTAKE AND ENCOURAGE SUPPLEMENT
[2022-11-17 11:19] VITALS: BP 127/59; PULSE 79; RESP 18; TEMP 36.6; O2SAT 100
[2022-11-17 11:38] LABS: Glucose, Whole Blood 233 mg/dL (60-115)
--- NOTE | 2022-11-17 12:14 | PM.PNNEP ---
Subjective Subjective Date of Service: 11/17/22 Principal diagnosis: Acute kidney injury, bradycardia, decompensated heart failure. Interval history: Events noted. All recent data reviewed Physical Exam Vital Signs: Vital Signs: Last Vital Signs Temp 97.9 F 11/17/22 11:19 Pulse 79 11/17/22 11:19 Resp 18 11/17/22 11:19 BP 127/59 L 11/17/22 11:19 Pulse Ox 100 11/17/22 11:19 O2 Del Method Room Air 11/17/22 11:19 O2 Flow Rate 97 11/05/22 03:24 FiO2 28 11/02/22 07:50 Oxygen Flow Rate 4 10/27/22 20:01 BMI result Body Mass Index 44.5 Const: General: no acute distress Eyes: EOM: EOMs intact bilaterally Resp: Auscultation: diminished lung sounds Cardio: Rate: regular rate GI: Palpation (GI): Soft to palpation Neuro: General: moves all extremities Objective Data Labs 11/09/22 10:00 11/15/22 06:52 Labs: Laboratory Results - last 24 hr 11/16/22 11/16/22 11/17/22 16:19 19:26 07:30 POC Glucose 282 H 324 H 194 H 11/17/22 11:18 POC Glucose 233 H Microbiology Microbiology Results: Microbiology 10/31/22 09:09 Blood - Venous Blood Culture - Final No growth after 5 days. 10/31/22 09:13 Blood - Venous Blood Culture - Final No growth after 5 days. 10/28/22 Unknown Urine clean catch - Urine malik top Urine Culture - Final Escherichia coli Procedures Date of Service Date of Service: 11/17/22 Assessment & Plan Assessment and plan (1) LEO (acute kidney injury): Status: Acute Assessment and Plan: LEO due to compromise in renal perfusion+ obstruction Had Acute pyelonephritis with left hydronephrosis urine culture ESBL e.coli , Was on meropenem s/p b/l ureteral stent placement on 11/08/22. Had acute diastolic CHF exacerbation which is resolved s/p diuresis and needing? dialysis in ICU Renal function improved; Labs AM C/W rest of current management Time Spent With Patient Time: . Progress Note: Quality Stroke Does the patient have a stroke diagnosis?: No
--- NOTE | 2022-11-17 14:01 | MHC.CM.PN ---
EMR reviewed and per MD rounds, pt remains medically cleared for discharge however still has not gotten a bed offer. Referral expanded. [facility] is following and reviewing. CM will continue to follow.
--- NOTE | 2022-11-17 15:31 | P.PNIM_ITS ---
Subjective Subjective Date of Service: 11/17/22 Interval History: chf Review of Systems no new c/o Physical Exam Vital Signs: Vital Signs: Last Vital Signs Temp 97.9 F 11/17/22 11:19 Pulse 79 11/17/22 11:19 Resp 18 11/17/22 11:19 BP 127/59 L 11/17/22 11:19 Pulse Ox 100 11/17/22 11:19 O2 Del Method Room Air 11/17/22 11:19 O2 Flow Rate 97 11/05/22 03:24 FiO2 28 11/02/22 07:50 Oxygen Flow Rate 4 10/27/22 20:01 BMI result Body Mass Index 44.5 Appearing in no acute distress ?lung sounds are clear to auscultation ?heart regular rate rhythm, clear? S1, S2 ?positive bowel sounds, abdomen is soft, nontender ?neuro patient is alert x3, no focal deficits Objective Data Active Medications Acetaminophen (Acetaminophen 325 Mg Tablet) 650 mg PO Q6H PRN PRN Reason: Pain, Mild (Pain Scale 1-3) Last Admin: 11/03/22 09:27 Dose: 650 mg Artificial Tears (Artificial Tears 15 Ml Drops) 1 drop EYE-BOTH BID [facility] Last Admin: 11/17/22 08:23 Dose: 1 drop Documented By: MONIQUE Atorvastatin Calcium (Atorvastatin Calcium 10 Mg Tablet) 10 mg PO BEDTIME [facility] Last Admin: 11/16/22 19:43 Dose: 10 mg Documented By: HEAVEN Bisacodyl (Bisacodyl 10 Mg Supp.Rect) 10 mg [place] DAILY PRN PRN Reason: Constipation Bumetanide (Bumetanide 1 Mg Tablet) 2 mg PO BID@0800,1700 [facility]; Protocol Last Admin: 11/17/22 08:18 Dose: 2 mg Documented By: MONIQUE Dextrose (Dextrose 50 % 25 Gm/50 Ml Syringe) 25 gm IVPUSH Q15M PRN; Protocol PRN Reason: per Hypoglycemia Standing Ord. Docusate Sodium (Docusate Sodium 100 Mg Capsule) 100 mg PO DAILY PRN PRN Reason: Constipation Glucose (Glucose Gel 15 Gm Gel..Gram.) 15 gm PO Q15M PRN; Protocol PRN Reason: per Hypoglycemia Standing Ord. Heparin Sodium (Porcine) (Heparin Sodium,Porcine 5,000 Unit/Ml Vial) 5,000 unit SUBCUT Q8H [facility] Last Admin: 11/17/22 08:20 Dose: 5,000 unit Documented By: MONIQUE Insulin Glargine (Insulin Glargine,Hum.Rec.Anlog 100 Unit/Ml 10 Ml Vial) 20 unit SUBCUT DAILY [facility] Last Admin: 11/17/22 08:19 Dose: 20 unit Documented By: MONIQUE Insulin Glargine (Insulin Glargine,Hum.Rec.Anlog 100 Unit/Ml 10 Ml Vial) 10 unit SUBCUT BEDTIME [facility] Last Admin: 11/16/22 19:44 Dose: 10 unit Documented By: HEAVEN Insulin Human Lispro (Insulin Lispro 100 Unit/Ml 3 Ml Vial) 0 unit SUBCUT QIDACHS [facility]; Protocol Last Admin: 11/17/22 11:55 Dose: 4 unit Documented By: MONIQUE Insulin Human Lispro (Insulin Lispro 100 Unit/Ml 3 Ml Vial) 5 unit SUBCUT QIDACHS [facility] Last Admin: 11/17/22 11:55 Dose: 5 unit Documented By: MONIQUE Latanoprost (Latanoprost 0.005 % Ophth Mona 2.5 Ml Drops) 1 drop EYE-BOTH BEDTIME [facility] Last Admin: 11/16/22 19:45 Dose: 1 drop Documented By: HEAVEN Levothyroxine Sodium (Levothyroxine Sodium 175 Mcg Tablet) 175 mcg PO DAILY@0600 [facility] Last Admin: 11/17/22 06:12 Dose: 175 mcg Documented By: AKIL Magnesium Oxide (Magnesium Oxide 400 Mg Tablet) 200 mg PO DAILY [facility] Last Admin: 11/17/22 08:19 Dose: 200 mg Documented By: MONIQUE Melatonin (Melatonin 3 Mg Tablet) 6 mg PO BEDTIME [facility] Last Admin: 11/16/22 19:43 Dose: 6 mg Documented By: HEAVEN Pt Own ([Calquence ( Acalabrutinib Mal)] 100 Mg Tab 100 mg PO BID [facility] Last Admin: 11/17/22 08:22 Dose: 100 mg Documented By: MONIQUE Non-Formulary Medication (Brinzolamide-Brimonidine [Simbrinza]) 1 drop EYE- RIGHT BID [facility] Nystatin (Nystatin Powder 15 Gm Bottle) 1 appl TOPICAL BID [facility]; Protocol Last Admin: 11/17/22 08:21 Dose: 1 appl Documented By: MONIQUE Pharmacy Consult (Consult Rx Perform Med Rec) 1 each MISCELLANE ONCE PRN PRN Reason: Consult order Polyethylene Glycol (Polyethylene Glycol 3350 17 Gm Powd.Pack) 17 gm PO BID [facility] Last Admin: 11/17/22 08:19 Dose: 17 gm Documented By: MONIQUE Prednisolone Acetate (Prednisolone Acetate 1 % Oph Susp 5 Ml Drpbtl) 1 drop EYE-RIGHT DAILY [facility] Last Admin: 11/17/22 08:23 Dose: 1 drop Documented By: MONIQUE Prednisone (Prednisone 1 Mg Tablet) 6 mg PO DAILY [facility] Last Admin: 11/17/22 08:19 Dose: 6 mg Documented By: MONIQUE Senna (Sennosides 8.6 Mg Tablet) 17.2 mg PO DAILY PRN PRN Reason: Constipation Sodium Chloride (0.9 % Sodium Chloride Flush 3 Ml Syringe) 3 ml IVFLUSH QSHIFT [facility] Last Admin: 11/17/22 08:20 Dose: Not Given Documented By: MONIQUE Non-Admin Reason: No Access Timolol Maleate (Timolol Maleate 0.5 % Oph Mona 5 Ml Drbtl) 1 drop EYE-RIGHT BID [facility] Last Admin: 11/17/22 08:23 Dose: 1 drop Documented By: MONIQUE Labs 11/09/22 10:00 11/15/22 06:52 Labs: Laboratory Results - last 24 hr 11/16/22 11/16/22 11/17/22 16:19 19:26 07:30 POC Glucose 282 H 324 H 194 H 11/17/22 11:18 POC Glucose 233 H Assessment and Plan (1) LEO (acute kidney injury): Status: Acute (2) CHF exacerbation: Status: Acute Plan 72-year-old female with past medical history of CHF, CLL, COPD, comes into the hospital with complaints of shortness of breath found to have CHF exacerbation, LEO, and hyperkalemia.?She was found to have UTI with ESBL E coli sensitive to meropenem.? Developed worsening acute on chronic renal failure with oliguria requiring temporary dialysis catheter and dialysis treatments in ICU? ICU step down patient discussed with Dr. Tesfaye.? She did require respiratory support with bipap but has been weaned. Has LATONYA diagnosed by no apneic episodes reported by armature winder. While in ICU developed hyperkalemia and uremia and secondarily bradycardia with Wenckebach.? As creatinine has improved, Wenckebach has resolved with very occasional dropped QRS is noted.? Bradycardia has also resolved.? Vitals are now stable and dialysis catheter has been removed.? She is being transferred to [facility] to complete course of meropenem. Acute pyelonephritis with left hydronephrosis urine culture ESBL e.coli , on meropenem started on 10/28, plan to complete 10 day course of antibiotics, end date 11/06 s/p b/l ureteral stent placement on11/08/22. acute diastolic CHF exacerbation. Resolved echo showed normal EF,? Impaired diastolic function, inferior vena cava severely dilated and does not collapse with inspiration suggestive of right heart strain s/p diuresis and dialysis in ICU euvolemic total i/o ,12 liters neg hold bumex for today ? chronic hypoxic respiratory failure currently on room air patient with history of obstructive sleep apnea currently not on CPAP Mobitz 1 second degree heart block HR initially in 30s/40s improved to 80s/90s with treatment of LEO/CHF. tsh 0.99 metoprolol on hold,s/p dopamine . ?cardiology consult appreciated -no need for bb . LEO on CKD 3 multifactorial due to cardiorenal syndrome, ATN, obstructive uropathy Status post temporary dialysis catheter and dialysis while in ICU. Dialysis catheter subsequently removed and renal function improving, but not quite back to baseline Nephrology following acute on chronic normocytic anemia r/t acute illness. no evidence of acute blood loss H/H stable hyperkalemia resolved COPD no acute exacerbation continue home inhalers on chronic prednisone - continue home dose diabetes?uncontrolled adjusted? lantusand SSI.ADA diet januvia on hold follow POCs. hypothyroidism continue levothyroxine h/o CLL outpatient follow up morbid obesity recommend low-calorie diet. patient has ch incontinence -off gibson catheter has purivec DVT prophylaxis:? Heparin subq dispo: Likely STR/LTC upon dc inpatient? need rehab placement Time Spent With Patient Time: Total time managing care of this patient today ____ minutes. Quality Stroke Does the patient have a stroke diagnosis?: No VTE Prior VTE?: No VTE Risk Level:: Medical - moderate - high VTE Device Contraindication: Treatment Not Indicated VTE Drug Contraindication: N/A - Med Ordered
[2022-11-17 15:35] VITALS: BP 134/62; PULSE 82; RESP 20; TEMP 35.9; O2SAT 98
[2022-11-17 16:21] LABS: Glucose, Whole Blood 269 mg/dL (60-115)
[2022-11-17] MEDS: 0.9 % Sodium Chloride Flush 3 ML SYRINGE IVFLUSH (16:32)
[2022-11-17 19:13] VITALS: BP 164/71; PULSE 96; RESP 20; TEMP 36.4; O2SAT 100
[2022-11-17 19:43] LABS: Glucose, Whole Blood 286 mg/dL (60-115)
[2022-11-17] MEDS: Melatonin 3 MG TABLET 6 MG PO (20:02)
[2022-11-17] MEDS: Insulin Glargine,Hum.rec.anlog 100 UNIT/ML 10 ML VIAL 10 UNIT SUBCUT (20:03)
[2022-11-17] MEDS: Atorvastatin Calcium 10 MG TABLET PO (20:03)
[2022-11-17] MEDS: Latanoprost 0.005 % Ophth Sol 2.5 ML DROPS 1 DROP EYE-BOTH (20:04)
[2022-11-17 23:10] VITALS: BP 139/63; PULSE 86; RESP 20; TEMP 36.4; O2SAT 100
[2022-11-17] MEDS: Acetaminophen 325 MG TABLET 650 MG PO (23:24)
[2022-11-18] MEDS: Heparin Sodium,Porcine 5,000 UNIT/ML VIAL 5000 UNIT SUBCUT ×3 (02:24→18:23)
[2022-11-18 03:21] VITALS: BP 126/56; PULSE 82; RESP 18; TEMP 36.3; O2SAT 98
[2022-11-18] MEDS: Levothyroxine Sodium 175 MCG TABLET PO (05:18)
[2022-11-18 07:20] VITALS: BP 126/60; PULSE 84; RESP 20; TEMP 36.3; O2SAT 92
[2022-11-18 07:29] LABS: Glucose, Whole Blood 134 mg/dL (60-115)
[2022-11-18] MEDS: predniSONE 1 MG TABLET 6 MG PO (08:33)
[2022-11-18] MEDS: Magnesium Oxide 400 MG TABLET 200 MG PO (08:34)
[2022-11-18] MEDS: Bumetanide 1 MG TABLET 2 MG PO ×2 (08:34→16:10)
[2022-11-18] MEDS: 0.9 % Sodium Chloride Flush 3 ML SYRINGE IVFLUSH (08:35)
[2022-11-18] MEDS: Insulin Glargine,Hum.rec.anlog 100 UNIT/ML 10 ML VIAL 20 UNIT SUBCUT (08:35)
[2022-11-18] MEDS: Insulin Lispro 100 UNIT/ML 3 ML VIAL SUBCUT ×6 (08:35→20:40)
[2022-11-18] MEDS: Nystatin Powder 15 GM BOTTLE 1 APPL TOPICAL ×2 (08:37→20:39)
[2022-11-18] MEDS: Artificial Tears 15 ML DROPS 1 DROP EYE-BOTH ×2 (08:37→20:42)
[2022-11-18] MEDS: timoloL maleate 0.5 % Oph Sol 5 ML DRBTL 1 DROP EYE-RIGHT ×2 (08:37→20:42)
[2022-11-18] MEDS: prednisoLONE Acetate 1 % Oph Susp 5 ML DRPBTL 1 DROP EYE-RIGHT (08:37)
[2022-11-18 11:51] LABS: Glucose, Whole Blood 222 mg/dL (60-115)
[2022-11-18 11:54] VITALS: BP 111/52; PULSE 100; RESP 20; TEMP 36.6; O2SAT 92
--- NOTE | 2022-11-18 12:50 | MHC.CM.PN ---
Addendum entered by Janet Ahmadi 11/18/22 13:55: This CM received phone call from pts HCP Patricia Nguyễn. Patricia states that the pts bariatric bed was delivered to the home, and she just got it confirmed with [facility] [employer] [place] that the pts herman lift will be delivered this upcoming Wednesday 11/22. They do not want pt going to any facility and would like her to go home with them once they have the herman lift. Hospitalist informed and in agreement with plan to D/C pt home on Wednesday 11/22. CM will continue to follow. Original Note: This CM spoke with aboriginal liaison officer Maritza Jade, she said she can offer a bed at [facility] in [place], [place]. This CM met with pt to inform of the bed offer, and pt adamant that she will not go that far, and the furthest she is willing to go is [place], [place]. This CM informed pt of her being medically cleared and this is the only facility offering a bed. This CM called pts HCP Patricia Nguyễn, and her number is no longer in service. This CM called alternate HCP Patricia Kimball who stated I'm not the health care proxy no more, its all up to the other Patricia now. This CM informed aPtricia Kimball that Patricia Nguyễn's telephone number is no longer in service, and asked if there is an alternate number available. No alternate phone number given to this CM.
--- NOTE | 2022-11-18 14:27 | HO.PM.IMPN ---
Subjective Subjective Date of Service: 11/18/22 Interval History: no complaints Physical Exam Vital Signs: Vital Signs: Last Vital Signs Temp 97.8 F 11/18/22 11:54 Pulse 100 11/18/22 11:54 Resp 20 11/18/22 11:54 BP 111/52 L 11/18/22 11:54 Pulse Ox 92 11/18/22 11:54 O2 Del Method Room Air 11/18/22 11:54 O2 Flow Rate 97 11/05/22 03:24 FiO2 28 11/02/22 07:50 Oxygen Flow Rate 4 10/27/22 20:01 BMI result Body Mass Index 44.5 Appearing in no acute distress ?lung sounds are clear to auscultation ?heart regular rate rhythm, clear? S1, S2 ?positive bowel sounds, abdomen is soft, nontender ?neuro patient is alert x3, no focal deficits Objective Data Active Medications Acetaminophen (Acetaminophen 325 Mg Tablet) 650 mg PO Q6H PRN PRN Reason: Pain, Mild (Pain Scale 1-3) Last Admin: 11/17/22 23:24 Dose: 650 mg Documented By: BRIANNE Artificial Tears (Artificial Tears 15 Ml Drops) 1 drop EYE-BOTH BID [facility] Last Admin: 11/18/22 08:37 Dose: 1 drop Documented By: MARY GRACE Atorvastatin Calcium (Atorvastatin Calcium 10 Mg Tablet) 10 mg PO BEDTIME [facility] Last Admin: 11/17/22 20:03 Dose: 10 mg Documented By: BRIANNE Bisacodyl (Bisacodyl 10 Mg Supp.Rect) 10 mg [place] DAILY PRN PRN Reason: Constipation Bumetanide (Bumetanide 1 Mg Tablet) 2 mg PO BID@0800,1700 [facility]; Protocol Last Admin: 11/18/22 08:34 Dose: 2 mg Documented By: MARY GRACE Dextrose (Dextrose 50 % 25 Gm/50 Ml Syringe) 25 gm IVPUSH Q15M PRN; Protocol PRN Reason: per Hypoglycemia Standing Ord. Docusate Sodium (Docusate Sodium 100 Mg Capsule) 100 mg PO DAILY PRN PRN Reason: Constipation Glucose (Glucose Gel 15 Gm Gel..Gram.) 15 gm PO Q15M PRN; Protocol PRN Reason: per Hypoglycemia Standing Ord. Heparin Sodium (Porcine) (Heparin Sodium,Porcine 5,000 Unit/Ml Vial) 5,000 unit SUBCUT Q8H [facility] Last Admin: 11/18/22 08:36 Dose: 5,000 unit Documented By: MARY GRACE Insulin Glargine (Insulin Glargine,Hum.Rec.Anlog 100 Unit/Ml 10 Ml Vial) 20 unit SUBCUT DAILY [facility] Last Admin: 11/18/22 08:35 Dose: 20 unit Documented By: MARY GRACE Insulin Glargine (Insulin Glargine,Hum.Rec.Anlog 100 Unit/Ml 10 Ml Vial) 10 unit SUBCUT BEDTIME [facility] Last Admin: 11/17/22 20:03 Dose: 10 unit Documented By: BRIANNE Insulin Human Lispro (Insulin Lispro 100 Unit/Ml 3 Ml Vial) 0 unit SUBCUT QIDACHS [facility]; Protocol Last Admin: 11/18/22 12:01 Dose: 4 unit Documented By: MARY GRACE Insulin Human Lispro (Insulin Lispro 100 Unit/Ml 3 Ml Vial) 5 unit SUBCUT QIDACHS [facility] Last Admin: 11/18/22 12:00 Dose: 5 unit Documented By: MARY GRACE Latanoprost (Latanoprost 0.005 % Ophth Mona 2.5 Ml Drops) 1 drop EYE-BOTH BEDTIME [facility] Last Admin: 11/17/22 20:04 Dose: 1 drop Documented By: BRIANNE Levothyroxine Sodium (Levothyroxine Sodium 175 Mcg Tablet) 175 mcg PO DAILY@0600 [facility] Last Admin: 11/18/22 05:18 Dose: 175 mcg Documented By: BRIANNE Magnesium Oxide (Magnesium Oxide 400 Mg Tablet) 200 mg PO DAILY [facility] Last Admin: 11/18/22 08:34 Dose: 200 mg Documented By: MARY GRACE Melatonin (Melatonin 3 Mg Tablet) 6 mg PO BEDTIME [facility] Last Admin: 11/17/22 20:02 Dose: 6 mg Documented By: BRIANNE Pt Own ([Calquence ( Acalabrutinib Mal)] 100 Mg Tab 100 mg PO BID [facility] Last Admin: 11/18/22 08:33 Dose: 100 mg Documented By: MARY GRACE Nystatin (Nystatin Powder 15 Gm Bottle) 1 appl TOPICAL BID [facility]; Protocol Last Admin: 11/18/22 08:37 Dose: 1 appl Documented By: MARY GRACE Pharmacy Consult (Consult Rx Perform Med Rec) 1 each MISCELLANE ONCE PRN PRN Reason: Consult order Polyethylene Glycol (Polyethylene Glycol 3350 17 Gm Powd.Pack) 17 gm PO BID [facility] Last Admin: 11/18/22 08:36 Dose: Not Given Documented By: MARY GRACE Non-Admin Reason: Patient Refused Prednisolone Acetate (Prednisolone Acetate 1 % Oph Susp 5 Ml Drpbtl) 1 drop EYE-RIGHT DAILY [facility] Last Admin: 11/18/22 08:37 Dose: 1 drop Documented By: MARY GRACE Prednisone (Prednisone 1 Mg Tablet) 6 mg PO DAILY [facility] Last Admin: 11/18/22 08:33 Dose: 6 mg Documented By: MARY GRACE Senna (Sennosides 8.6 Mg Tablet) 17.2 mg PO DAILY PRN PRN Reason: Constipation Sodium Chloride (0.9 % Sodium Chloride Flush 3 Ml Syringe) 3 ml IVFLUSH QSHIFT [facility] Last Admin: 11/18/22 08:35 Dose: 3 ml Documented By: MARY GRACE Timolol Maleate (Timolol Maleate 0.5 % Oph Mona 5 Ml Drbtl) 1 drop EYE-RIGHT BID [facility] Last Admin: 11/18/22 08:37 Dose: 1 drop Documented By: MARY GRACE Labs 11/09/22 10:00 11/15/22 06:52 Labs: Laboratory Results - last 24 hr 11/17/22 11/17/22 11/18/22 16:09 19:39 07:17 POC Glucose 269 H 286 H 134 H 11/18/22 11:21 POC Glucose 222 H Assessment and Plan (1) LEO (acute kidney injury): Status: Acute (2) CHF exacerbation: Status: Acute Plan 72-year-old female with past medical history of CHF, CLL, COPD, comes into the hospital with complaints of shortness of breath found to have CHF exacerbation, LEO, and hyperkalemia.?She was found to have UTI with ESBL E coli sensitive to meropenem.? Developed worsening acute on chronic renal failure with oliguria requiring temporary dialysis catheter and dialysis treatments in ICU? ICU step down patient discussed with Dr. Tesfaye.? She did require respiratory support with bipap but has been weaned. Has LATONYA diagnosed by no apneic episodes reported by drawing in machine tender helper. While in ICU developed hyperkalemia and uremia and secondarily bradycardia with Wenckebach.? As creatinine has improved, Wenckebach has resolved with very occasional dropped QRS is noted.? Bradycardia has also resolved.? Vitals are now stable and dialysis catheter has been removed.? She is being transferred to [facility] to complete course of meropenem. Acute pyelonephritis with left hydronephrosis urine culture ESBL e.coli , meropenem completed 10 day course of antibiotics s/p b/l ureteral stent placement on 11/08/22. acute diastolic CHF exacerbation. Resolved echo showed normal EF,? Impaired diastolic function, inferior vena cava severely dilated and does not collapse with inspiration suggestive of right heart strain s/p diuresis and dialysis in ICU euvolemic maintenance bumex chronic hypoxic respiratory failure currently on room air patient with history of obstructive sleep apnea currently not on CPAP Mobitz 1 second degree heart block HR initially in 30s/40s improved to 80s/90s with treatment of LEO/CHF. tsh 0.99 metoprolol on hold,s/p dopamine . ?cardiology consult appreciated -no need for bb . LEO on CKD 3 multifactorial due to cardiorenal syndrome, ATN, obstructive uropathy Status post temporary dialysis catheter and dialysis while in ICU. Dialysis catheter subsequently removed and renal function improved acute on chronic normocytic anemia r/t acute illness. no evidence of acute blood loss H/H stable hyperkalemia resolved COPD no acute exacerbation continue home inhalers on chronic prednisone - continue home dose diabetes?uncontrolled adjusted? lantusand SSI.ADA diet januvia on hold follow POCs. hypothyroidism continue levothyroxine h/o CLL outpatient follow up morbid obesity recommend low-calorie diet. DVT prophylaxis:? Heparin subq full code dispo: Likely home once erin lift available 11/22 reason for continued hospitalization:awaiting home set up Time Spent With Patient Time: Total time managing care of this patient today ____ minutes. Quality Stroke Does the patient have a stroke diagnosis?: No VTE Prior VTE?: No VTE Risk Level:: Medical - moderate - high VTE Device Contraindication: Treatment Not Indicated VTE Drug Contraindication: N/A - Med Ordered
[2022-11-18 15:24] VITALS: BP 147/63; PULSE 99; RESP 17; TEMP 36.9; O2SAT 100
[2022-11-18 16:06] LABS: Glucose, Whole Blood 186 mg/dL (60-115)
--- NOTE | 2022-11-18 17:18 | PC.NURSE ---
Pt reported SOB at rest, RN assessed : lungs sounds are clear to auscultation , oxygen saturation is 100% on RA, pt repositioned ,HOB elevated to sitting position . There is some improvement with breathing . Evening assessment: redness to right lower leg , skin very warm to touch , edema to tay LE's L>R. DR Morales covering for DR Barajas evaluated pt at the bedside . Will continue to monitor
[2022-11-18 19:46] VITALS: BP 127/57; PULSE 97; RESP 20; TEMP 37.4; O2SAT 100
[2022-11-18 20:00] VITALS: O2SAT 95
[2022-11-18 20:25] LABS: Glucose, Whole Blood 118 mg/dL (60-115)
[2022-11-18] MEDS: Melatonin 3 MG TABLET 6 MG PO (20:40)
[2022-11-18] MEDS: Atorvastatin Calcium 10 MG TABLET PO (20:40)
[2022-11-18] MEDS: Insulin Glargine,Hum.rec.anlog 100 UNIT/ML 10 ML VIAL 10 UNIT SUBCUT (20:40)
[2022-11-18] MEDS: Latanoprost 0.005 % Ophth Sol 2.5 ML DROPS 1 DROP EYE-BOTH (20:42)
[2022-11-19] VITALS (8 sets, daily range): BP systolic 107–147; BP diastolic 51–63; PULSE 80–104; RESP 16–20; TEMP 36.3–37.1; O2SAT 95–100; BMI 43.7
[2022-11-19] MEDS: Heparin Sodium,Porcine 5,000 UNIT/ML VIAL 5000 UNIT SUBCUT ×3 (02:28→17:05)
[2022-11-19] MEDS: Levothyroxine Sodium 175 MCG TABLET PO (05:23)
[2022-11-19 07:38] LABS: Glucose, Whole Blood 146 mg/dL (60-115)
[2022-11-19] MEDS: Bumetanide 1 MG TABLET 2 MG PO ×2 (09:06→17:04)
[2022-11-19] MEDS: predniSONE 1 MG TABLET 6 MG PO (09:06)
[2022-11-19] MEDS: Artificial Tears 15 ML DROPS 1 DROP EYE-BOTH ×2 (09:07→22:42)
[2022-11-19] MEDS: Insulin Glargine,Hum.rec.anlog 100 UNIT/ML 10 ML VIAL 20 UNIT SUBCUT (09:07)
[2022-11-19] MEDS: polyethylene glycoL 3350 17 GM POWD.PACK PO ×2 (09:07→22:40)
[2022-11-19] MEDS: timoloL maleate 0.5 % Oph Sol 5 ML DRBTL 1 DROP EYE-RIGHT ×2 (09:07→22:43)
[2022-11-19] MEDS: prednisoLONE Acetate 1 % Oph Susp 5 ML DRPBTL 1 DROP EYE-RIGHT (09:07)
[2022-11-19] MEDS: Magnesium Oxide 400 MG TABLET 200 MG PO (09:08)
--- NOTE | 2022-11-19 10:58 | MHC.CLN ---
F/U PT WITH INCREASED NUTRITION RISK R/T PRESSURE INJURY PO INTAKE REMAINS 100% DIET RX: REGULAR-PT MAY BENEFIT FROM 1800DM 2GM NA DIET R/T DM AND CHF/CKD PT RECEIVING ENSURE MAX BID TO PROMOTE WOUND HEALING SUPP PROVIDES 300KCALS, 60G PROTEIN WITH 100% ACCEPTANCE MONITOR PO INTAKE AND ENCOURAGE SUPPLEMENT
[2022-11-19 11:17] LABS: Glucose, Whole Blood 268 mg/dL (60-115)
[2022-11-19] MEDS: Insulin Lispro 100 UNIT/ML 3 ML VIAL SUBCUT ×6 (11:51→22:45)
[2022-11-19] MEDS: Nystatin Powder 15 GM BOTTLE 1 APPL TOPICAL ×2 (11:52→22:41)
--- NOTE | 2022-11-19 14:49 | MHC.CM.PN ---
Current plan remains as documented by CM on 11/18
--- NOTE | 2022-11-19 15:06 | P.PNIM_ITS ---
Subjective Subjective Date of Service: 11/19/22 Interval History: Interval history: No complaints Review of Systems Review of Systems: Yes all other systems are reviewed and are negative Physical Exam Vital Signs: Vital Signs: Last Vital Signs Temp 97.7 F 11/19/22 11:17 Pulse 96 11/19/22 11:17 Resp 16 11/19/22 11:17 BP 127/56 L 11/19/22 11:17 Pulse Ox 99 11/19/22 11:17 O2 Del Method Room Air 11/19/22 11:17 O2 Flow Rate 97 11/05/22 03:24 FiO2 28 11/02/22 07:50 Oxygen Flow Rate 4 10/27/22 20:01 BMI result Body Mass Index 43.7 Constitutional - Awake and Alert, No apparent distress Eyes - PERRLA, EOMI Cardiovascular - S1S2, RRR, No edema Respiratory - Normal lung expansion, Normal respiratory effort, No respiratory distress, CTA bilaterally Extremities - no calf tenderness bilaterally, no swelling Skin - Warm/Dry Neurological - Alert & oriented x3 Psychological - Appropriate affect Objective Data Active Medications Acetaminophen (Acetaminophen 325 Mg Tablet) 650 mg PO Q6H PRN PRN Reason: Pain, Mild (Pain Scale 1-3) Last Admin: 11/17/22 23:24 Dose: 650 mg Documented By: BRIANNE Artificial Tears (Artificial Tears 15 Ml Drops) 1 drop EYE-BOTH BID [facility] Last Admin: 11/19/22 09:07 Dose: 1 drop Documented By: MONIQUE Atorvastatin Calcium (Atorvastatin Calcium 10 Mg Tablet) 10 mg PO BEDTIME [facility] Last Admin: 11/18/22 20:40 Dose: 10 mg Documented By: BRIANNE Bisacodyl (Bisacodyl 10 Mg Supp.Rect) 10 mg CA DAILY PRN PRN Reason: Constipation Bumetanide (Bumetanide 1 Mg Tablet) 2 mg PO BID@0800,1700 [facility]; Protocol Last Admin: 11/19/22 09:06 Dose: 2 mg Documented By: MONIQUE Dextrose (Dextrose 50 % 25 Gm/50 Ml Syringe) 25 gm IVPUSH Q15M PRN; Protocol PRN Reason: per Hypoglycemia Standing Ord. Docusate Sodium (Docusate Sodium 100 Mg Capsule) 100 mg PO DAILY PRN PRN Reason: Constipation Glucose (Glucose Gel 15 Gm Gel..Gram.) 15 gm PO Q15M PRN; Protocol PRN Reason: per Hypoglycemia Standing Ord. Heparin Sodium (Porcine) (Heparin Sodium,Porcine 5,000 Unit/Ml Vial) 5,000 unit SUBCUT Q8H [facility] Last Admin: 11/19/22 09:06 Dose: 5,000 unit Documented By: MONIQUE Insulin Glargine (Insulin Glargine,Hum.Rec.Anlog 100 Unit/Ml 10 Ml Vial) 20 unit SUBCUT DAILY [facility] Last Admin: 11/19/22 09:07 Dose: 20 unit Documented By: MONIQUE Insulin Glargine (Insulin Glargine,Hum.Rec.Anlog 100 Unit/Ml 10 Ml Vial) 10 unit SUBCUT BEDTIME [facility] Last Admin: 11/18/22 20:40 Dose: 10 unit Documented By: BRIANNE Insulin Human Lispro (Insulin Lispro 100 Unit/Ml 3 Ml Vial) 0 unit SUBCUT QIDACHS [facility]; Protocol Last Admin: 11/19/22 11:51 Dose: 8 unit Documented By: MONIQUE Insulin Human Lispro (Insulin Lispro 100 Unit/Ml 3 Ml Vial) 5 unit SUBCUT QIDACHS [facility] Last Admin: 11/19/22 11:52 Dose: 5 unit Documented By: MONIQUE Latanoprost (Latanoprost 0.005 % Ophth Mona 2.5 Ml Drops) 1 drop EYE-BOTH BEDTIME [facility] Last Admin: 11/18/22 20:42 Dose: 1 drop Documented By: BRIANNE Levothyroxine Sodium (Levothyroxine Sodium 175 Mcg Tablet) 175 mcg PO DAILY@0600 [facility] Last Admin: 11/19/22 05:23 Dose: 175 mcg Documented By: BRIANNE Magnesium Oxide (Magnesium Oxide 400 Mg Tablet) 200 mg PO DAILY [facility] Last Admin: 11/19/22 09:08 Dose: 200 mg Documented By: MONIQUE Melatonin (Melatonin 3 Mg Tablet) 6 mg PO BEDTIME [facility] Last Admin: 11/18/22 20:40 Dose: 6 mg Documented By: BRIANNE Pt Own ([Calquence ( Acalabrutinib Mal)] 100 Mg Tab 100 mg PO BID [facility] Last Admin: 11/19/22 09:09 Dose: 100 mg Documented By: MONIQUE Nystatin (Nystatin Powder 15 Gm Bottle) 1 appl TOPICAL BID [facility]; Protocol Last Admin: 11/19/22 11:52 Dose: 1 appl Documented By: MONIQUE Comments: late admin waiting for pharmacy to refill Pharmacy Consult (Consult Rx Perform Med Rec) 1 each MISCELLANE ONCE PRN PRN Reason: Consult order Polyethylene Glycol (Polyethylene Glycol 3350 17 Gm Powd.Pack) 17 gm PO BID [facility] Last Admin: 11/19/22 09:07 Dose: 17 gm Documented By: MONIQUE Prednisolone Acetate (Prednisolone Acetate 1 % Oph Susp 5 Ml Drpbtl) 1 drop EYE-RIGHT DAILY [facility] Last Admin: 11/19/22 09:07 Dose: 1 drop Documented By: MONIQUE Prednisone (Prednisone 1 Mg Tablet) 6 mg PO DAILY [facility] Last Admin: 11/19/22 09:06 Dose: 6 mg Documented By: MONIQUE Senna (Sennosides 8.6 Mg Tablet) 17.2 mg PO DAILY PRN PRN Reason: Constipation Sodium Chloride (0.9 % Sodium Chloride Flush 3 Ml Syringe) 3 ml IVFLUSH QSHIFT [facility] Last Admin: 11/19/22 09:07 Dose: 3 ml Documented By: MONIQUE Timolol Maleate (Timolol Maleate 0.5 % Oph Mona 5 Ml Drbtl) 1 drop EYE-RIGHT BID [facility] Last Admin: 11/19/22 09:07 Dose: 1 drop Documented By: MONIQUE Labs 11/09/22 10:00 11/15/22 06:52 Labs: Laboratory Results - last 24 hr 11/18/22 11/18/22 11/19/22 16:02 20:20 07:34 POC Glucose 186 H 118 H 146 H 11/19/22 11:13 POC Glucose 268 H Assessment and Plan (1) LEO (acute kidney injury): Status: Acute (2) CHF exacerbation: Status: Acute Plan 72-year-old female with past medical history of CHF, CLL, COPD, comes into the hospital with complaints of shortness of breath found to have CHF exacerbation, LEO, and hyperkalemia.?She was found to have UTI with ESBL E coli sensitive to meropenem.? Developed worsening acute on chronic renal failure with oliguria requiring temporary dialysis catheter and dialysis treatments in ICU? ICU step down patient discussed with Dr. Tesfaye.? She did require respiratory support with bipap but has been weaned. Has LATONYA diagnosed by no apneic episodes reported by bonderizer. While in ICU developed hyperkalemia and uremia and secondarily bradycardia with Wenckebach.? As creatinine has improved, Wenckebach has resolved with very occasional dropped QRS is noted.? Bradycardia has also resolved.? Vitals are now stable and dialysis catheter has been removed.? She is being transferred to [facility] [place] to complete course of meropenem. Acute pyelonephritis with left hydronephrosis urine culture ESBL e.coli , meropenem completed 10 day course of antibiotics s/p b/l ureteral stent placement on 11/08/22. acute diastolic CHF exacerbation. Resolved echo showed normal EF,? Impaired diastolic function, inferior vena cava severely dilated and does not collapse with inspiration suggestive of right heart strain s/p diuresis and dialysis in ICU euvolemic maintenance bumex chronic hypoxic respiratory failure currently on room air patient with history of obstructive sleep apnea currently not on CPAP Mobitz 1 second degree heart block HR initially in 30s/40s improved to 80s/90s with treatment of LEO/CHF. tsh 0.99 metoprolol on hold,s/p dopamine . ?cardiology consult appreciated -no need for bb . LEO on CKD 3 multifactorial due to cardiorenal syndrome, ATN, obstructive uropathy Status post temporary dialysis catheter and dialysis while in ICU. Dialysis catheter subsequently removed and renal function improved acute on chronic normocytic anemia r/t acute illness. no evidence of acute blood loss H/H stable hyperkalemia resolved COPD no acute exacerbation continue home inhalers on chronic prednisone - continue home dose diabetes?uncontrolled adjusted? lantusand SSI.ADA diet januvia on hold follow POCs. hypothyroidism continue levothyroxine h/o CLL outpatient follow up morbid obesity recommend low-calorie diet. DVT prophylaxis:? Heparin subq full code dispo: Likely home once herman lift available 11/22 reason for continued hospitalization:awaiting home set up Time Spent With Patient Time: Total time managing care of this patient today ____ minutes. Quality Stroke Does the patient have a stroke diagnosis?: No VTE Prior VTE?: No VTE Risk Level:: Medical - moderate - high VTE Device Contraindication: Treatment Not Indicated VTE Drug Contraindication: N/A - Med Ordered
[2022-11-19 16:28] LABS: Glucose, Whole Blood 255 mg/dL (60-115)
[2022-11-19] MEDS: guaiFENesin DM 100/10/5 ML 5 ML SYRUP 10 ML PO (17:16)
[2022-11-19 20:18] LABS: Glucose, Whole Blood 220 mg/dL (60-115)
[2022-11-19] MEDS: Atorvastatin Calcium 10 MG TABLET PO (22:32)
[2022-11-19] MEDS: Insulin Glargine,Hum.rec.anlog 100 UNIT/ML 10 ML VIAL 10 UNIT SUBCUT (22:33)
[2022-11-19] MEDS: Albuterol/Iprat 2.5/0.5MG 3 ML AMPUL.NEB INHALE (22:36)
[2022-11-19] MEDS: Melatonin 3 MG TABLET 6 MG PO (22:42)
[2022-11-19] MEDS: Latanoprost 0.005 % Ophth Sol 2.5 ML DROPS 1 DROP EYE-BOTH (22:42)
[2022-11-19 22:45] LABS: Glucose, Whole Blood 184 mg/dL (60-115)
[2022-11-20] MEDS: Heparin Sodium,Porcine 5,000 UNIT/ML VIAL 5000 UNIT SUBCUT ×3 (01:58→17:05)
[2022-11-20 04:00] VITALS: BP 107/53; PULSE 93; RESP 18; TEMP 37; O2SAT 95
[2022-11-20] MEDS: Levothyroxine Sodium 175 MCG TABLET PO (05:23)
[2022-11-20 06:00] VITALS: BMI 44.2
[2022-11-20 07:27] VITALS: BP 114/67; PULSE 88; RESP 20; TEMP 36.2; O2SAT 95
[2022-11-20 07:51] LABS: Glucose, Whole Blood 177 mg/dL (60-115)
[2022-11-20] MEDS: Magnesium Oxide 400 MG TABLET 200 MG PO (08:24)
[2022-11-20] MEDS: polyethylene glycoL 3350 17 GM POWD.PACK PO (08:26)
[2022-11-20] MEDS: predniSONE 1 MG TABLET 6 MG PO (08:26)
[2022-11-20] MEDS: Insulin Lispro 100 UNIT/ML 3 ML VIAL SUBCUT ×8 (08:28→21:10)
[2022-11-20] MEDS: Bumetanide 1 MG TABLET 2 MG PO ×2 (08:28→17:06)
[2022-11-20] MEDS: Insulin Glargine,Hum.rec.anlog 100 UNIT/ML 10 ML VIAL 20 UNIT SUBCUT (08:28)
[2022-11-20] MEDS: timoloL maleate 0.5 % Oph Sol 5 ML DRBTL 1 DROP EYE-RIGHT ×2 (08:29→21:15)
[2022-11-20] MEDS: Artificial Tears 15 ML DROPS 1 DROP EYE-BOTH ×2 (08:29→21:12)
[2022-11-20] MEDS: Nystatin Powder 15 GM BOTTLE 1 APPL TOPICAL ×2 (08:29→21:37)
[2022-11-20] MEDS: prednisoLONE Acetate 1 % Oph Susp 5 ML DRPBTL 1 DROP EYE-RIGHT (08:29)
[2022-11-20 09:34] LABS: MANUAL DIFF FLAG NO
[2022-11-20 09:38] LABS: Basophils Percent Auto 0.5 % (0-2); Eosinophils Absolute Auto 0.1 X10*3/uL (0.0-0.4); Eosinophils Percent Auto 1.6 % (0-4); Hematocrit 27.4 % (37.0-47.0); Hemoglobin 8.6 g/dl (12.0-16.0); Imm Gran Abs Auto 0.04 X10*3/uL (0.00-0.03); Imm Gran Pct Auto 0.5 % (0.0-0.4); Lymphocytes Absolute Auto 0.9 X10*3/uL (1.2-4.9); Lymphocytes Percent Auto 12.8 % (20-40); Mean Corpuscular HGB Conc 31.4 g/dl (31.0-35.0); Mean Corpuscular Hemoglobin 25.9 pg (27.0-33.0); Mean Corpuscular Volume 82.5 fL (80.0-98.0); Mean Platelet Volume 12.7 fL (9.4-12.3); Monocytes Absolute Auto 1.1 X10*3/uL (0.1-1.2); Monocytes Percent Auto 14.7 % (2-11); Neutrophils Absolute Auto 5.1 x10*3/uL (2.0-8.3); Neutrophils Percent Auto 69.9 % (45-73); Platelet Count 139 X10*3/uL (160-400); Red Blood Count 3.32 X10*6/uL (4.20-5.50); Red Cell Distribution Width 17.3 % (11.0-16.0); White Blood Count 7.3 X10*3/uL (4.8-10.8)
[2022-11-20 09:50] LABS: Anion Gap 14 (12-20); Blood Urea Nitrogen 53 mg/dL (9-16); Calcium 8.5 mg/dL (8.4-10.2); Carbon Dioxide 27 mmol/L (22-29); Chloride 96 mmol/L (96-108); Creatinine Clr Calc Pharmacy 41.6; Estimated Glomerular Filt Rate 30; Glucose Random 231 mg/dL (60-115); Potassium 3.8 mmol/L (3.3-5.1); Sodium 133 mmol/L (135-145)
[2022-11-20 11:20] VITALS: BP 122/65; PULSE 77; RESP 18; TEMP 36.2; O2SAT 92
[2022-11-20 11:30] LABS: Glucose, Whole Blood 278 mg/dL (60-115)
[2022-11-20 15:14] VITALS: BP 118/55; PULSE 86; RESP 18; TEMP 36.1; O2SAT 100
[2022-11-20 15:31] LABS: Glucose, Whole Blood 298 mg/dL (60-115)
--- NOTE | 2022-11-20 16:13 | P.PNIM_ITS ---
Subjective Subjective Date of Service: 11/20/22 Interval History: Pt seen and examined at bedside. No acute complaint. Denies CP, no Physical Exam Vital Signs: Vital Signs: Last Vital Signs Temp 96.9 F 11/20/22 15:14 Pulse 86 11/20/22 15:14 Resp 18 11/20/22 15:14 BP 118/55 L 11/20/22 15:14 Pulse Ox 100 11/20/22 15:14 O2 Del Method Room Air 11/20/22 15:14 O2 Flow Rate 97 11/05/22 03:24 FiO2 28 11/02/22 07:50 Oxygen Flow Rate 4 10/27/22 20:01 BMI result Body Mass Index 44.2 Const: Other: alert , oriented Resp: Other: Normal resp rate No ronchi Cardio: Other: RRR GI: Other: Soft, non-tender Extrem: Other: No edema Objective Data Active Medications Acetaminophen (Acetaminophen 325 Mg Tablet) 650 mg PO Q6H PRN PRN Reason: Pain, Mild (Pain Scale 1-3) Last Admin: 11/17/22 23:24 Dose: 650 mg Documented By: BRIANNE Albuterol/Ipratropium (Albuterol/Iprat 2.5/0.5mg 3 Ml Ampul.Neb) 3 ml INHALE RQ4H PRN PRN Reason: Wheezing Last Admin: 11/19/22 22:36 Dose: 3 ml Documented By: BRYAN Artificial Tears (Artificial Tears 15 Ml Drops) 1 drop EYE-BOTH BID [facility] Last Admin: 11/20/22 08:29 Dose: 1 drop Documented By: HEAVEN Atorvastatin Calcium (Atorvastatin Calcium 10 Mg Tablet) 10 mg PO BEDTIME [facility] Last Admin: 11/19/22 22:32 Dose: 10 mg Documented By: PIA Bisacodyl (Bisacodyl 10 Mg Supp.Rect) 10 mg ID DAILY PRN PRN Reason: Constipation Bumetanide (Bumetanide 1 Mg Tablet) 2 mg PO BID@0800,1700 [facility]; Protocol Last Admin: 11/20/22 08:28 Dose: 2 mg Documented By: HEAVEN Dextrose (Dextrose 50 % 25 Gm/50 Ml Syringe) 25 gm IVPUSH Q15M PRN; Protocol PRN Reason: per Hypoglycemia Standing Ord. Docusate Sodium (Docusate Sodium 100 Mg Capsule) 100 mg PO DAILY PRN PRN Reason: Constipation Glucose (Glucose Gel 15 Gm Gel..Gram.) 15 gm PO Q15M PRN; Protocol PRN Reason: per Hypoglycemia Standing Ord. Guaifenesin/Dextromethorphan (Guaifenesin Dm 100/10/5 Ml 5 Ml Syrup) 10 ml PO Q6H PRN PRN Reason: Cough Last Admin: 11/19/22 17:16 Dose: 10 ml Documented By: MONIQUE Heparin Sodium (Porcine) (Heparin Sodium,Porcine 5,000 Unit/Ml Vial) 5,000 unit SUBCUT Q8H [facility] Last Admin: 11/20/22 08:23 Dose: 5,000 unit Documented By: HEAVEN Insulin Glargine (Insulin Glargine,Hum.Rec.Anlog 100 Unit/Ml 10 Ml Vial) 20 unit SUBCUT DAILY [facility] Last Admin: 11/20/22 08:28 Dose: 20 unit Documented By: HEAVEN Insulin Glargine (Insulin Glargine,Hum.Rec.Anlog 100 Unit/Ml 10 Ml Vial) 10 unit SUBCUT BEDTIME [facility] Last Admin: 11/19/22 22:33 Dose: 10 unit Documented By: PIA Insulin Human Lispro (Insulin Lispro 100 Unit/Ml 3 Ml Vial) 0 unit SUBCUT QIDACHS [facility]; Protocol Last Admin: 11/20/22 12:00 Dose: 8 unit Documented By: HEAVEN Insulin Human Lispro (Insulin Lispro 100 Unit/Ml 3 Ml Vial) 5 unit SUBCUT QIDACHS [facility] Last Admin: 11/20/22 12:00 Dose: 5 unit Documented By: HEAVEN Latanoprost (Latanoprost 0.005 % Ophth Mona 2.5 Ml Drops) 1 drop EYE-BOTH BEDTIME [facility] Last Admin: 11/19/22 22:42 Dose: 1 drop Documented By: PIA Levothyroxine Sodium (Levothyroxine Sodium 175 Mcg Tablet) 175 mcg PO DAILY@0600 [facility] Last Admin: 11/20/22 05:23 Dose: 175 mcg Documented By: ROCHELLE Magnesium Oxide (Magnesium Oxide 400 Mg Tablet) 200 mg PO DAILY [facility] Last Admin: 11/20/22 08:24 Dose: 200 mg Documented By: HEAVEN Melatonin (Melatonin 3 Mg Tablet) 6 mg PO BEDTIME [facility] Last Admin: 11/19/22 22:42 Dose: 6 mg Documented By: PIA Pt Own ([Calquence ( Acalabrutinib Mal)] 100 Mg Tab 100 mg PO BID [facility] Last Admin: 11/20/22 08:30 Dose: 100 mg Documented By: HEAVEN Nystatin (Nystatin Powder 15 Gm Bottle) 1 appl TOPICAL BID [facility]; Protocol Last Admin: 11/20/22 08:29 Dose: 1 appl Documented By: HEAVEN Pharmacy Consult (Consult Rx Perform Med Rec) 1 each MISCELLANE ONCE PRN PRN Reason: Consult order Polyethylene Glycol (Polyethylene Glycol 3350 17 Gm Powd.Pack) 17 gm PO BID [facility] Last Admin: 11/20/22 08:26 Dose: 17 gm Documented By: HEAVEN Prednisolone Acetate (Prednisolone Acetate 1 % Oph Susp 5 Ml Drpbtl) 1 drop EYE-RIGHT DAILY [facility] Last Admin: 11/20/22 08:29 Dose: 1 drop Documented By: HEAVEN Prednisone (Prednisone 1 Mg Tablet) 6 mg PO DAILY [facility] Last Admin: 11/20/22 08:26 Dose: 6 mg Documented By: HEAVEN Senna (Sennosides 8.6 Mg Tablet) 17.2 mg PO DAILY PRN PRN Reason: Constipation Sodium Chloride (0.9 % Sodium Chloride Flush 3 Ml Syringe) 3 ml IVFLUSH QSHIFT [facility] Last Admin: 11/20/22 12:01 Dose: Not Given Documented By: HEAVEN Non-Admin Reason: No Access Timolol Maleate (Timolol Maleate 0.5 % Oph Mona 5 Ml Drbtl) 1 drop EYE-RIGHT BID [facility] Last Admin: 11/20/22 08:29 Dose: 1 drop Documented By: HEAVEN Labs 11/20/22 09:28 11/20/22 09:28 Labs: Laboratory Results - last 24 hr 11/19/22 11/19/22 11/19/22 16:25 20:14 22:41 MCV MCH MCHC RDW Plt Count MPV Immature Gran % (Auto) Neut % (Auto) Lymph % (Auto) [place] % (Auto) Eos % (Auto) Baso % (Auto) Lymph # (Auto) [place] # (Auto) Eos # (Auto) Baso # (Auto) Abs Immat Gran (auto) Absolute Neuts (auto) Absolute Nucleated RBC Nucleated RBC % (auto) Anion Gap Estim Creat Clear Calc Estimated GFR POC Glucose 255 H 220 H 184 H Random Glucose Calcium 11/20/22 11/20/22 11/20/22 07:41 09:28 09:28 MCV 82.5 MCH 25.9 L MCHC 31.4 RDW 17.3 H Plt Count 139 L MPV 12.7 H Immature Gran % (Auto) 0.5 H Neut % (Auto) 69.9 Lymph % (Auto) 12.8 L Min[place] % (Auto) 14.7 H Eos % (Auto) 1.6 Baso % (Auto) 0.5 Lymph # (Auto) 0.9 L Min[place] # (Auto) 1.1 Eos # (Auto) 0.1 Baso # (Auto) 0.0 Abs Immat Gran (auto) 0.04 H Absolute Neuts (auto) 5.1 Absolute Nucleated RBC 0.000 Nucleated RBC % (auto) 0.0 Anion Gap 14 Estim Creat Clear Calc 41.6 Estimated GFR 30 POC Glucose 177 H Random Glucose 231 H Calcium 8.5 D 11/20/22 11/20/22 11:27 15:27 MCV MCH MCHC RDW Plt Count MPV Immature Gran % (Auto) Neut % (Auto) Lymph % (Auto) Min[place] % (Auto) Eos % (Auto) Baso % (Auto) Lymph # (Auto) Min[place] # (Auto) Eos # (Auto) Baso # (Auto) Abs Immat Gran (auto) Absolute Neuts (auto) Absolute Nucleated RBC Nucleated RBC % (auto) Anion Gap Estim Creat Clear Calc Estimated GFR POC Glucose 278 H 298 H Random Glucose Calcium Assessment and Plan (1) Heart block AV second degree: Status: Acute (2) Pyelonephritis: Status: Acute (3) LEO (acute kidney injury): Status: Acute (4) Altered mental status: Status: Acute (5) Hyperkalemia: Status: Acute (6) LATONYA (obstructive sleep apnea): Status: Acute (7) Diabetes mellitus with insulin therapy: Status: Acute Plan 72-year-old female with past medical history of CHF, CLL, COPD, comes into the hospital with complaints of shortness of breath found to have CHF exacerbation, LEO, and hyperkalemia.?She was found to have UTI with ESBL E coli sensitive to meropenem.? Developed worsening acute on chronic renal failure with oliguria requiring temporary dialysis catheter and dialysis treatments in ICU? ICU step down patient discussed with Dr. Tesfaye.? She did require respiratory support with bipap but has been weaned. Has hx of LATONYA diagnosed by no apneic episodes reported by therapeutic massage technician. While in ICU developed hyperkalemia and uremia and secondarily bradycardia with Wenckebach.? As creatinine has improved, Wenckebach has resolved with very occasional dropped QRS is noted.? Bradycardia has also resolved.? Vitals are now stable and dialysis catheter has been removed.? was transferred out of ICU to medical floor and has remained stbale # Acute pyelonephritis with left hydronephrosis - urine culture ESBL e.coli ,? - meropenem completed 10 day course of antibiotics - s/p b/l ureteral stent placement on 11/08/22. - fup op urology # acute diastolic CHF exacerbation. - Resolved - echo showed normal EF,? Impaired diastolic function, inferior vena cava robby rely dilated and does not collapse with inspiration suggestive of right heart strain - s/p diuresis and dialysis in ICU euvolemic maintenance bumex #chronic hypoxic respiratory failure currently on room air patient with history of obstructive sleep apnea currently not on CPAP #Mobitz 1 second degree heart block - HR initially in 30s/40s improved to 80s/90s with treatment of LEO/CHF. - tsh 0.99 - metoprolol on hold,s/p dopamine . - ardiology consult appreciated -no need for bb at this time # LEO on CKD 3 - improved but not back to basleine - multifactorial due to cardiorenal syndrome, ATN, obstructive uropathy - Status post temporary dialysis catheter and dialysis while in ICU. - Dialysis catheter subsequently removed and renal function improved - Labs today show worsening audra liu,m will reconsult nephrology - Follow bmp - will place on IVF #acute on chronic normocytic anemia - r/t acute illness. no evidence of acute blood loss - H/H stable - follow cbc #hyperkalemia - resolved #COPD - no acute exacerbation - continue home inhalers - on chronic prednisone - continue home dose # diabetes?uncontrolled adjusted? lantusand SSI.ADA diet januvia on hold follow POCs. hypothyroidism continue levothyroxine h/o CLL outpatient follow up morbid obesity recommend low-calorie diet. DVT prophylaxis:? Heparin subq full code dispo: Likely? home once herman lift available 11/22 Time Spent With Patient Time: Total time managing care of this patient today ____ minutes. Quality Stroke Does the patient have a stroke diagnosis?: No VTE Prior VTE?: No VTE Risk Level:: Medical - moderate - high VTE Device Contraindication: Treatment Not Indicated VTE Drug Contraindication: N/A - Med Ordered
--- NOTE | 2022-11-20 16:48 | P.PNNP_ITS ---
Subjective Subjective Date of Service: 11/20/22 Principal diagnosis: Acute kidney injury, bradycardia, decompensated heart failure. Interval history: Seen and examined, events noted Physical Exam Vital Signs: Vital Signs: Last Vital Signs Temp 96.9 F 11/20/22 15:14 Pulse 86 11/20/22 15:14 Resp 18 11/20/22 15:14 BP 118/55 L 11/20/22 15:14 Pulse Ox 100 11/20/22 15:14 O2 Del Method Room Air 11/20/22 15:14 O2 Flow Rate 97 11/05/22 03:24 FiO2 28 11/02/22 07:50 Oxygen Flow Rate 4 10/27/22 20:01 BMI result Body Mass Index 44.2 Const: Other: Gen: awake alert x3 ,no acute resp.distress HEENT: sclera anicteric, moist mucus membranes Neck: supple, no?JVD Lungs: diminished breath sounds,few wheeze,? no tachypnea, no crackles Heart: regular?rate and rhythm,no murmurs Abd: soft, obese,non-tender, bowel sounds audible,ecchmosis Ext: discoloration both legs,?Rt leg worsening swelling ,non?pitting edema,no tenderness no change in discoloration , left upper arm infiltration around IV Right dorsum of hand swollen,good radial pulse. Skin:? multiple areas of ecchymosis, Neuro: alert and oriented x3, no focal findings Psych: appropriate affect General: cooperative, healthy appearing, comfortable, no acute distress, alert, awake, in distress mild and respiratory, ill appearing, lethargic and tired appearing Orientation/consciousness: lethargic HEENT: Head: Yes normocephalic and Yes atraumatic Eyes: EOM: EOMs intact bilaterally Neck: Neck: Yes supple Resp: Auscultation: diminished lung sounds Cardio: Rate: regular rate and bradycardic Heart sounds: S1 normal heart sound present and S2 normal heart sound present GI: Palpation (GI): Soft to palpation and nontender Neuro: General: moves all extremities Extrem: General: Yes pedal edema Objective Data Labs 11/20/22 09:28 11/20/22 09:28 Labs: Laboratory Results - last 24 hr 11/19/22 11/19/22 11/20/22 20:14 22:41 07:41 WBC RBC Hgb Hct MCV MCH MCHC RDW Plt Count MPV Immature Gran % (Auto) Neut % (Auto) Lymph % (Auto) [place] % (Auto) Eos % (Auto) Baso % (Auto) Lymph # (Auto) [place] # (Auto) Eos # (Auto) Baso # (Auto) Abs Immat Gran (auto) Absolute Neuts (auto) Absolute Nucleated RBC Nucleated RBC % (auto) Sodium Potassium Chloride Carbon Dioxide Anion Gap BUN Creatinine Estim Creat Clear Calc Estimated GFR POC Glucose 220 H 184 H 177 H Random Glucose Calcium 11/20/22 11/20/22 11/20/22 09:28 09:28 11:27 WBC 7.3 RBC 3.32 L Hgb 8.6 L Hct 27.4 L MCV 82.5 MCH 25.9 L MCHC 31.4 RDW 17.3 H Plt Count 139 L MPV 12.7 H Immature Gran % (Auto) 0.5 H Neut % (Auto) 69.9 Lymph % (Auto) 12.8 L [place] % (Auto) 14.7 H Eos % (Auto) 1.6 Baso % (Auto) 0.5 Lymph # (Auto) 0.9 L [place] # (Auto) 1.1 Eos # (Auto) 0.1 Baso # (Auto) 0.0 Abs Immat Gran (auto) 0.04 H Absolute Neuts (auto) 5.1 Absolute Nucleated RBC 0.000 Nucleated RBC % (auto) 0.0 Sodium 133 L Potassium 3.8 Chloride 96 Carbon Dioxide 27 Anion Gap 14 BUN 53 H Creatinine 1.67 H Estim Creat Clear Calc 41.6 Estimated GFR 30 POC Glucose 278 H Random Glucose 231 H Calcium 8.5 D 11/20/22 15:27 WBC RBC Hgb Hct MCV MCH MCHC RDW Plt Count MPV Immature Gran % (Auto) Neut % (Auto) Lymph % (Auto) [place] % (Auto) Eos % (Auto) Baso % (Auto) Lymph # (Auto) [place] # (Auto) Eos # (Auto) Baso # (Auto) Abs Immat Gran (auto) Absolute Neuts (auto) Absolute Nucleated RBC Nucleated RBC % (auto) Sodium Potassium Chloride Carbon Dioxide Anion Gap BUN Creatinine Estim Creat Clear Calc Estimated GFR POC Glucose 298 H Random Glucose Calcium Microbiology Microbiology Results: Microbiology 10/31/22 09:09 Blood - Venous Blood Culture - Final No growth after 5 days. 10/31/22 09:13 Blood - Venous Blood Culture - Final No growth after 5 days. 10/28/22 Unknown Urine clean catch - Urine malik top Urine Culture - Final Escherichia coli Procedures Date of Service Date of Service: 11/20/22 Assessment & Plan Assessment and plan (1) ELO (acute kidney injury): Status: Acute Assessment and Plan: LEO due to compromise in renal perfusion+ obstruction Had Acute pyelonephritis with left hydronephrosis urine culture ESBL e.coli , Was on meropenem s/p b/l ureteral stent placement on 11/08/22. Had acute diastolic CHF exacerbation which is resolved s/p diuresis and needing? dialysis in ICU Renal function had improved but slt worse this am REC: track UOP/renal func; avoidNtoxins Time Spent With Patient Time: Total time managing care of this patient today ____ minutes. Progress Note: Quality Stroke Does the patient have a stroke diagnosis?: No
[2022-11-20] MEDS: Lactated Ringers 1,000 ML 100 ML IVCONT (17:56)
[2022-11-20 18:42] VITALS: BP 129/58; PULSE 88; RESP 20; TEMP 36; O2SAT 99
[2022-11-20 18:51] LABS: Glucose, Whole Blood 216 mg/dL (60-115)
[2022-11-20] MEDS: Atorvastatin Calcium 10 MG TABLET PO (21:09)
[2022-11-20] MEDS: Melatonin 3 MG TABLET 6 MG PO (21:09)
[2022-11-20] MEDS: Insulin Glargine,Hum.rec.anlog 100 UNIT/ML 10 ML VIAL 10 UNIT SUBCUT (21:11)
[2022-11-20] MEDS: Acetaminophen 325 MG TABLET 650 MG PO (21:14)
[2022-11-20] MEDS: Latanoprost 0.005 % Ophth Sol 2.5 ML DROPS 1 DROP EYE-BOTH (21:37)
[2022-11-21] VITALS (7 sets, daily range): BP systolic 104–140; BP diastolic 56–64; PULSE 75–88; RESP 16–22; TEMP 36.1–36.5; O2SAT 97–100; BMI 44.1
[2022-11-21] MEDS: 0.9 % Sodium Chloride Flush 3 ML SYRINGE IVFLUSH ×3 (00:35→17:28)
[2022-11-21] MEDS: Heparin Sodium,Porcine 5,000 UNIT/ML VIAL 5000 UNIT SUBCUT ×4 (03:28→23:53)
[2022-11-21] MEDS: Lactated Ringers 1,000 ML 100 ML IVCONT ×3 (03:30→22:27)
[2022-11-21] MEDS: Levothyroxine Sodium 175 MCG TABLET PO (06:34)
[2022-11-21 06:35] LABS: Anion Gap 14 (12-20); Blood Urea Nitrogen 50 mg/dL (9-16); Calcium 8.7 mg/dL (8.4-10.2); Carbon Dioxide 25 mmol/L (22-29); Chloride 99 mmol/L (96-108); Creatinine Clr Calc Pharmacy 49.2; Estimated Glomerular Filt Rate 37; Glucose Random 167 mg/dL (60-115); Potassium 3.2 mmol/L (3.3-5.1); Sodium 135 mmol/L (135-145)
[2022-11-21 07:39] LABS: Glucose, Whole Blood 201 mg/dL (60-115)
[2022-11-21] MEDS: Magnesium Oxide 400 MG TABLET 200 MG PO (08:26)
[2022-11-21] MEDS: Bumetanide 1 MG TABLET 2 MG PO ×2 (08:26→17:58)
[2022-11-21] MEDS: polyethylene glycoL 3350 17 GM POWD.PACK PO (08:27)
[2022-11-21] MEDS: Insulin Lispro 100 UNIT/ML 3 ML VIAL SUBCUT ×8 (08:27→20:18)
[2022-11-21] MEDS: timoloL maleate 0.5 % Oph Sol 5 ML DRBTL 1 DROP EYE-RIGHT ×2 (08:30→20:19)
[2022-11-21] MEDS: Artificial Tears 15 ML DROPS 1 DROP EYE-BOTH ×2 (08:30→20:18)
[2022-11-21] MEDS: Insulin Glargine,Hum.rec.anlog 100 UNIT/ML 10 ML VIAL 20 UNIT SUBCUT (08:32)
[2022-11-21] MEDS: Nystatin Powder 15 GM BOTTLE 1 APPL TOPICAL ×2 (10:50→20:18)
[2022-11-21] MEDS: predniSONE 1 MG TABLET 6 MG PO (10:50)
[2022-11-21] MEDS: prednisoLONE Acetate 1 % Oph Susp 5 ML DRPBTL 1 DROP EYE-RIGHT (10:51)
[2022-11-21 11:36] LABS: Glucose, Whole Blood 293 mg/dL (60-115)
--- NOTE | 2022-11-21 11:56 | P.PNIM_ITS ---
Subjective Subjective Date of Service: 11/21/22 Interval History: Patient seen examined at bedside No overnight events Has no acute complaint Review of Systems Review of Systems: Yes all other systems are reviewed and are negative Physical Exam Vital Signs: Vital Signs: Last Vital Signs Temp 97.6 F 11/21/22 11:27 Pulse 87 11/21/22 11:27 Resp 18 11/21/22 11:27 BP 104/62 11/21/22 11:27 Pulse Ox 100 11/21/22 11:27 O2 Del Method Room Air 11/21/22 11:27 O2 Flow Rate 97 11/05/22 03:24 FiO2 28 11/02/22 07:50 Oxygen Flow Rate 4 10/27/22 20:01 BMI result Body Mass Index 44.1 Const: Other: Sitting up in bed, finishing up breakfast Resp: Other: Clear to auscultation bilaterally GI: Other: Abdomen is obese, nontender Objective Data Active Medications Acetaminophen (Acetaminophen 325 Mg Tablet) 650 mg PO Q6H PRN PRN Reason: Pain, Mild (Pain Scale 1-3) Last Admin: 11/20/22 21:14 Dose: 650 mg Documented By: ELGIN Albuterol/Ipratropium (Albuterol/Iprat 2.5/0.5mg 3 Ml Ampul.Neb) 3 ml INHALE RQ4H PRN PRN Reason: Wheezing Last Admin: 11/19/22 22:36 Dose: 3 ml Documented By: BRYAN Artificial Tears (Artificial Tears 15 Ml Drops) 1 drop EYE-BOTH BID [facility] Last Admin: 11/21/22 08:30 Dose: 1 drop Documented By: SPARKLE Atorvastatin Calcium (Atorvastatin Calcium 10 Mg Tablet) 10 mg PO BEDTIME [facility] Last Admin: 11/20/22 21:09 Dose: 10 mg Documented By: ELGIN Bisacodyl (Bisacodyl 10 Mg Supp.Rect) 10 mg [place] DAILY PRN PRN Reason: Constipation Bumetanide (Bumetanide 1 Mg Tablet) 2 mg PO BID@0800,1700 [facility]; Protocol Last Admin: 11/21/22 08:26 Dose: 2 mg Documented By: SPARKLE Dextrose (Dextrose 50 % 25 Gm/50 Ml Syringe) 25 gm IVPUSH Q15M PRN; Protocol PRN Reason: per Hypoglycemia Standing Ord. Docusate Sodium (Docusate Sodium 100 Mg Capsule) 100 mg PO DAILY PRN PRN Reason: Constipation Glucose (Glucose Gel 15 Gm Gel..Gram.) 15 gm PO Q15M PRN; Protocol PRN Reason: per Hypoglycemia Standing Ord. Guaifenesin/Dextromethorphan (Guaifenesin Dm 100/10/5 Ml 5 Ml Syrup) 10 ml PO Q6H PRN PRN Reason: Cough Last Admin: 11/19/22 17:16 Dose: 10 ml Documented By: MONIQUE Heparin Sodium (Porcine) (Heparin Sodium,Porcine 5,000 Unit/Ml Vial) 5,000 unit SUBCUT Q8H [facility] Last Admin: 11/21/22 10:50 Dose: 5,000 unit Documented By: SPARKLE Lactated Ringer's (Lr) 1,000 mls @ 100 mls/hr IVCONT .Q10H [facility] Last Admin: 11/21/22 03:30 Dose: 100 mls/hr Documented By: BOBBY Insulin Glargine (Insulin Glargine,Hum.Rec.Anlog 100 Unit/Ml 10 Ml Vial) 20 unit SUBCUT DAILY [facility] Last Admin: 11/21/22 08:32 Dose: 20 unit Documented By: SPARKLE Insulin Glargine (Insulin Glargine,Hum.Rec.Anlog 100 Unit/Ml 10 Ml Vial) 10 unit SUBCUT BEDTIME [facility] Last Admin: 11/20/22 21:11 Dose: 10 unit Insulin Human Lispro (Insulin Lispro 100 Unit/Ml 3 Ml Vial) 0 unit SUBCUT QIDACHS [facility]; Protocol Last Admin: 11/21/22 08:27 Dose: 4 unit Documented By: SPARKLE Insulin Human Lispro (Insulin Lispro 100 Unit/Ml 3 Ml Vial) 5 unit SUBCUT QIDACHS [facility] Last Admin: 11/21/22 08:28 Dose: 5 unit Documented By: SPARKLE Latanoprost (Latanoprost 0.005 % Ophth Mona 2.5 Ml Drops) 1 drop EYE-BOTH BEDTIME [facility] Last Admin: 11/20/22 21:37 Dose: 1 drop Documented By: ELGIN Levothyroxine Sodium (Levothyroxine Sodium 175 Mcg Tablet) 175 mcg PO DAILY@0600 [facility] Last Admin: 11/21/22 06:34 Dose: 175 mcg Documented By: BOBBY Magnesium Oxide (Magnesium Oxide 400 Mg Tablet) 200 mg PO DAILY [facility] Last Admin: 11/21/22 08:26 Dose: 200 mg Documented By: SPARKLE Melatonin (Melatonin 3 Mg Tablet) 6 mg PO BEDTIME [facility] Last Admin: 11/20/22 21:09 Dose: 6 mg Documented By: ELGIN Pt Own ([Calquence ( Acalabrutinib Mal)] 100 Mg Tab 100 mg PO BID [facility] Last Admin: 11/21/22 08:25 Dose: 100 mg Documented By: SPARKLE Nystatin (Nystatin Powder 15 Gm Bottle) 1 appl TOPICAL BID [facility]; Protocol Last Admin: 11/21/22 10:50 Dose: 1 appl Documented By: SPARKLE Pharmacy Consult (Consult Rx Perform Med Rec) 1 each MISCELLANE ONCE PRN PRN Reason: Consult order Polyethylene Glycol (Polyethylene Glycol 3350 17 Gm Powd.Pack) 17 gm PO BID [facility] Last Admin: 11/21/22 08:27 Dose: 17 gm Documented By: SPARKLE Prednisolone Acetate (Prednisolone Acetate 1 % Oph Susp 5 Ml Drpbtl) 1 drop EYE-RIGHT DAILY [facility] Last Admin: 11/21/22 10:51 Dose: 1 drop Documented By: SPARKLE Prednisone (Prednisone 1 Mg Tablet) 6 mg PO DAILY [facility] Last Admin: 11/21/22 10:50 Dose: 6 mg Documented By: SPARKLE Senna (Sennosides 8.6 Mg Tablet) 17.2 mg PO DAILY PRN PRN Reason: Constipation Sodium Chloride (0.9 % Sodium Chloride Flush 3 Ml Syringe) 3 ml IVFLUSH QSHIFT [facility] Last Admin: 11/21/22 08:30 Dose: 3 ml Documented By: SPARKLE Timolol Maleate (Timolol Maleate 0.5 % Oph Mona 5 Ml Drbtl) 1 drop EYE-RIGHT BID [facility] Last Admin: 11/21/22 08:30 Dose: 1 drop Documented By: SPARKLE Labs 11/20/22 09:28 11/21/22 05:55 Labs: Laboratory Results - last 24 hr 11/20/22 11/20/22 11/21/22 15:27 18:48 05:55 Anion Gap 14 Estim Creat Clear Calc 49.2 Estimated GFR 37 POC Glucose 298 H 216 H Random Glucose 167 H Calcium 8.7 11/21/22 11/21/22 07:36 11:31 Anion Gap Estim Creat Clear Calc Estimated GFR POC Glucose 201 H 293 H Random Glucose Calcium Assessment and Plan (1) Heart block AV second degree: Status: Acute (2) LATONYA (obstructive sleep apnea): Status: Acute (3) Diabetes mellitus with insulin therapy: Status: Acute (4) Pyelonephritis: Status: Acute (5) Bradycardia: Status: Acute (6) (HFpEF) heart failure with preserved ejection fraction: Status: Acute (7) Acute kidney injury superimposed on CKD: Status: Acute Plan 72-year-old female with past medical history of CHF, CLL, COPD, comes into the hospital with complaints of shortness of breath found to have CHF exacerbation, LEO, and hyperkalemia.?She was found to have UTI with ESBL E coli sensitive to meropenem.? Developed worsening acute on chronic renal failure with oliguria requiring temporary dialysis catheter and dialysis treatments in ICU? ICU step down patient discussed with Dr. Tesfaye.? She did require respiratory support with bipap but has been weaned. Has hx of LATONYA diagnosed by no apneic episodes reported by rag sorter. While in ICU developed hyperkalemia and uremia and secondarily bradycardia with Wenckebach.? As creatinine has improved, Wenckebach has resolved with very occasional dropped QRS is noted.? Bradycardia has also resolved.? Vitals are now stable and dialysis catheter has been removed.? was transferred out of ICU to medical floor and has remained stbale # Acute pyelonephritis with left hydronephrosis - urine culture ESBL e.coli ,? - meropenem completed 10 day course of antibiotics - s/p b/l ureteral stent placement on 11/08/22. - fup op urology # acute diastolic CHF exacerbation. - Resolved - s/p diuresis and dialysis in ICU - euvolemic - maintenance bumex #chronic hypoxic respiratory failure - currently on room air - patient with history of obstructive sleep apnea currently not on CPAP #Mobitz 1 second degree heart block - HR initially in 30s/40s improved to 80s/90s with treatment of LEO/CHF. - tsh 0.99 - metoprolol discontinued, s/p dopamine . - cardiology consult appreciated -no need for bb at this time # LEO on CKD 3 - improved but not back to basleine - multifactorial due to cardiorenal syndrome, ATN, obstructive uropathy - Status post temporary dialysis catheter and dialysis while in ICU. - Dialysis catheter subsequently removed and renal function improved - Follow bmp - will place on IVF #acute on chronic normocytic anemia - r/t acute illness. no evidence of acute blood loss - H/H stable - follow cbc #hyperkalemia - resolved #COPD - no acute exacerbation - continue home inhalers - on chronic prednisone - continue home dose # diabetes?uncontrolled adjusted? lantusand SSI.ADA diet januvia on hold follow POCs. hypothyroidism continue levothyroxine h/o CLL outpatient follow up morbid obesity recommend low-calorie diet. DVT prophylaxis:? Heparin subq full code dispo: Likely?home once herman lift available 11/22 Time Spent With Patient Time: Total time managing care of this patient today ____ minutes. Quality Stroke Does the patient have a stroke diagnosis?: No VTE Prior VTE?: No VTE Risk Level:: Medical - moderate - high VTE Device Contraindication: Treatment Not Indicated VTE Drug Contraindication: N/A - Med Ordered
[2022-11-21 16:23] LABS: Glucose, Whole Blood 287 mg/dL (60-115)
[2022-11-21 19:56] LABS: Glucose, Whole Blood 313 mg/dL (60-115)
[2022-11-21] MEDS: Atorvastatin Calcium 10 MG TABLET PO (20:17)
[2022-11-21] MEDS: Melatonin 3 MG TABLET 6 MG PO (20:17)
[2022-11-21] MEDS: Insulin Glargine,Hum.rec.anlog 100 UNIT/ML 10 ML VIAL 10 UNIT SUBCUT (20:17)
[2022-11-21] MEDS: Latanoprost 0.005 % Ophth Sol 2.5 ML DROPS 1 DROP EYE-BOTH (20:19)
[2022-11-22 03:27] VITALS: BP 140/67; PULSE 83; RESP 18; TEMP 36; O2SAT 100
[2022-11-22] MEDS: Levothyroxine Sodium 175 MCG TABLET PO (04:43)
[2022-11-22 05:00] VITALS: BMI 44.3
[2022-11-22 07:21] LABS: Glucose, Whole Blood 174 mg/dL (60-115)
[2022-11-22 07:26] LABS: Anion Gap 13 (12-20); Blood Urea Nitrogen 43 mg/dL (9-16); Calcium 8.6 mg/dL (8.4-10.2); Carbon Dioxide 28 mmol/L (22-29); Chloride 98 mmol/L (96-108); Creatinine Clr Calc Pharmacy 51.1; Estimated Glomerular Filt Rate 38; Glucose Random 159 mg/dL (60-115); Potassium 3.2 mmol/L (3.3-5.1); Sodium 136 mmol/L (135-145)
[2022-11-22 07:55] VITALS: BP 141/66; PULSE 83; RESP 20; TEMP 36.1; O2SAT 100
[2022-11-22] MEDS: Bumetanide 1 MG TABLET 2 MG PO ×2 (09:30→16:08)
[2022-11-22] MEDS: Magnesium Oxide 400 MG TABLET 200 MG PO (09:30)
[2022-11-22] MEDS: Heparin Sodium,Porcine 5,000 UNIT/ML VIAL 5000 UNIT SUBCUT ×2 (09:31→16:08)
[2022-11-22] MEDS: predniSONE 1 MG TABLET 6 MG PO (09:31)
[2022-11-22] MEDS: Insulin Lispro 100 UNIT/ML 3 ML VIAL SUBCUT ×8 (09:31→22:10)
[2022-11-22] MEDS: Insulin Glargine,Hum.rec.anlog 100 UNIT/ML 10 ML VIAL 20 UNIT SUBCUT (09:32)
[2022-11-22] MEDS: polyethylene glycoL 3350 17 GM POWD.PACK PO ×2 (09:33→22:13)
[2022-11-22] MEDS: Artificial Tears 15 ML DROPS 1 DROP EYE-BOTH ×2 (09:34→22:15)
[2022-11-22] MEDS: timoloL maleate 0.5 % Oph Sol 5 ML DRBTL 1 DROP EYE-RIGHT ×2 (09:34→22:17)
[2022-11-22] MEDS: prednisoLONE Acetate 1 % Oph Susp 5 ML DRPBTL 1 DROP EYE-RIGHT (09:34)
[2022-11-22] MEDS: Nystatin Powder 15 GM BOTTLE 1 APPL TOPICAL ×2 (09:35→22:14)
--- NOTE | 2022-11-22 09:55 | P.PNNP_ITS ---
Subjective Subjective Date of Service: 11/22/22 Principal diagnosis: Acute kidney injury, bradycardia, decompensated heart failure. Interval history: Patient seen examined at bedside No overnight events Has no acute complaint Physical Exam 2 Vital Signs: Vital Signs: Last Vital Signs Temp 97.0 F 11/22/22 07:55 Pulse 83 11/22/22 07:55 Resp 20 11/22/22 07:55 BP 141/66 H 11/22/22 07:55 Pulse Ox 100 11/22/22 07:55 O2 Del Method Room Air 11/22/22 07:55 O2 Flow Rate 97 11/05/22 03:24 FiO2 28 11/02/22 07:50 Oxygen Flow Rate 4 10/27/22 20:01 BMI result Body Mass Index 44.3 Const: General: alert and awake HEENT: Head: Yes normocephalic and Yes atraumatic Neck: Neck: Yes supple Resp: Auscultation: diminished lung sounds Cardio: Rate: bradycardic Heart sounds: S1 normal heart sound present and S2 normal heart sound present GI: Palpation (GI): Soft to palpation and nontender Extrem: General: Yes pedal edema Objective Data Labs 11/20/22 09:28 11/22/22 06:43 Labs: Laboratory Results - last 24 hr 11/21/22 11/21/22 11/21/22 11:31 16:10 19:50 Sodium Potassium Chloride Carbon Dioxide Anion Gap BUN Creatinine Estim Creat Clear Calc Estimated GFR POC Glucose 293 H 287 H 313 H Random Glucose Calcium 11/22/22 11/22/22 06:43 07:09 Sodium 136 Potassium 3.2 L Chloride 98 Carbon Dioxide 28 Anion Gap 13 BUN 43 H Creatinine 1.36 Estim Creat Clear Calc 51.1 Estimated GFR 38 POC Glucose 174 H Random Glucose 159 H Calcium 8.6 Microbiology Microbiology Results: Microbiology 10/31/22 09:09 Blood - Venous Blood Culture - Final No growth after 5 days. 10/31/22 09:13 Blood - Venous Blood Culture - Final No growth after 5 days. 10/28/22 Unknown Urine clean catch - Urine malik top Urine Culture - Final Escherichia coli Procedures Date of Service Date of Service: 11/22/22 Assessment & Plan Assessment and plan (1) LEO (acute kidney injury): Status: Acute (2) Hyperkalemia: Status: Acute (3) (HFpEF) heart failure with preserved ejection fraction: Status: Acute (4) CKD (chronic kidney disease) stage 3, GFR 30-59 ml/min: Status: Acute Plan multifactorial LEO: -congestive nephrosarca c/w cardio renal syndrome -acute tubular injury -obstructive uropathy CT scan showed mild left hydronephrosis per urology c/w ascending left pyelonephristis Status post cystoscopy bilateral retrograde and left-sided stent placement on 11/08/2022 known CKD baseline Scr ~ 1.2 mg/dl h/o HFpEF REC renal function is improving. No new recommendations. Time Spent With Patient Time: Total time managing care of this patient today ____ minutes. Progress Note: Quality Stroke Does the patient have a stroke diagnosis?: No
[2022-11-22 11:38] LABS: Glucose, Whole Blood 384 mg/dL (60-115)
[2022-11-22 11:42] VITALS: BP 163/70; PULSE 84; RESP 22; TEMP 36.1; O2SAT 97
--- NOTE | 2022-11-22 12:46 | MHC.CM.PN ---
[facility] REVIEWED AND PER MD ROUNDS, AWAITING DELIVERY OF A [facility]. PER HCP/MIKAELA KRAMER, THEY ARE ALSO IN NEED OF A CORKY BED BEFORE SHE CAN COME HOME AND WILL NEED A SCRIPT SENT FROM THE MD TO COVER ONE. MD MADE AWARE AND WILL CALL [facility] [employer] TO SEE HOW THIS CAN BE ARRANGED. CM WILL CONTINUE TO FOLLOW FOR ANY CHANGE IN PLAN.
--- NOTE | 2022-11-22 14:41 | MHC.CLN ---
F/U PT WITH INCREASED NUTRITION RISK R/T PRESSURE INJURY. PO INTAKE REMAINS USUALLY 100%. DIET RX: REGULAR. PT RECEIVING ENSURE MAX BID TO PROMOTE WOUND HEALING. SUPP PROVIDES 300KCALS, 60G PROTEIN WITH 100% ACCEPTANCE. MONITOR PO INTAKE AND ENCOURAGE SUPPLEMENT.
[2022-11-22 15:12] VITALS: BP 146/65; PULSE 84; RESP 20; TEMP 36.4; O2SAT 100
[2022-11-22 15:37] LABS: Glucose, Whole Blood 343 mg/dL (60-115)
--- NOTE | 2022-11-22 16:07 | HO.PM.IMPN ---
Subjective Subjective Date of Service: 11/22/22 Interval History: No acute issues overnight Review of Systems Denies chest pain Denies shortness of breath Denies nausea vomiting diarrhea Denies fever chills Physical Exam Vital Signs: Vital Signs: Last Vital Signs Temp 97.6 F 11/22/22 15:12 Pulse 84 11/22/22 15:12 Resp 20 11/22/22 15:12 BP 146/65 H 11/22/22 15:12 Pulse Ox 100 11/22/22 15:12 O2 Del Method Room Air 11/22/22 15:12 O2 Flow Rate 97 11/05/22 03:24 FiO2 28 11/02/22 07:50 Oxygen Flow Rate 4 10/27/22 20:01 BMI result Body Mass Index 44.3 Const: Other: No acute issues overnight Resp: Other: Clear to auscultation bilaterally no rales rhonchi or wheezes Cardio: Other: No S4; positive S1-S2; no S3 murmurs rubs or gallop GI: Other: Soft nontender nondistended normoactive bowel sounds Extrem: Other: Positive edema bilaterally Objective Data Active Medications Acetaminophen (Acetaminophen 325 Mg Tablet) 650 mg PO Q6H PRN PRN Reason: Pain, Mild (Pain Scale 1-3) Last Admin: 11/20/22 21:14 Dose: 650 mg Documented By: ELGIN Albuterol/Ipratropium (Albuterol/Iprat 2.5/0.5mg 3 Ml Ampul.Neb) 3 ml INHALE RQ4H PRN PRN Reason: Wheezing Last Admin: 11/19/22 22:36 Dose: 3 ml Documented By: BRYAN Artificial Tears (Artificial Tears 15 Ml Drops) 1 drop EYE-BOTH BID [facility] Last Admin: 11/22/22 09:34 Dose: 1 drop Documented By: BRYN Atorvastatin Calcium (Atorvastatin Calcium 10 Mg Tablet) 10 mg PO BEDTIME [facility] Last Admin: 11/21/22 20:17 Dose: 10 mg Documented By: PEPITO Bisacodyl (Bisacodyl 10 Mg Supp.Rect) 10 mg [place] DAILY PRN PRN Reason: Constipation Bumetanide (Bumetanide 1 Mg Tablet) 2 mg PO BID@0800,1700 [facility]; Protocol Last Admin: 11/22/22 09:30 Dose: 2 mg Documented By: BRYN Dextrose (Dextrose 50 % 25 Gm/50 Ml Syringe) 25 gm IVPUSH Q15M PRN; Protocol PRN Reason: per Hypoglycemia Standing Ord. Docusate Sodium (Docusate Sodium 100 Mg Capsule) 100 mg PO DAILY PRN PRN Reason: Constipation Glucose (Glucose Gel 15 Gm Gel..Gram.) 15 gm PO Q15M PRN; Protocol PRN Reason: per Hypoglycemia Standing Ord. Guaifenesin/Dextromethorphan (Guaifenesin Dm 100/10/5 Ml 5 Ml Syrup) 10 ml PO Q6H PRN PRN Reason: Cough Last Admin: 11/19/22 17:16 Dose: 10 ml Documented By: MONIQUE Heparin Sodium (Porcine) (Heparin Sodium,Porcine 5,000 Unit/Ml Vial) 5,000 unit SUBCUT Q8H [facility] Last Admin: 11/22/22 09:31 Dose: 5,000 unit Documented By: BRYN Lactated Ringer's (Lr) 1,000 mls @ 100 mls/hr IVCONT .Q10H [facility] Last Admin: 11/22/22 09:36 Dose: Not Given Documented By: BRYN Non-Admin Reason: No Access Insulin Glargine (Insulin Glargine,Hum.Rec.Anlog 100 Unit/Ml 10 Ml Vial) 20 unit SUBCUT DAILY [facility] Last Admin: 11/22/22 09:32 Dose: 20 unit Documented By: BRYN Insulin Glargine (Insulin Glargine,Hum.Rec.Anlog 100 Unit/Ml 10 Ml Vial) 10 unit SUBCUT BEDTIME [facility] Last Admin: 11/21/22 20:17 Dose: 10 unit Documented By: PEPITO Insulin Human Lispro (Insulin Lispro 100 Unit/Ml 3 Ml Vial) 0 unit SUBCUT QIDACHS [facility]; Protocol Last Admin: 11/22/22 12:28 Dose: 14 unit Documented By: BRYN Insulin Human Lispro (Insulin Lispro 100 Unit/Ml 3 Ml Vial) 5 unit SUBCUT QIDACHS [facility] Last Admin: 11/22/22 12:28 Dose: 5 unit Documented By: BRYN Latanoprost (Latanoprost 0.005 % Ophth Mona 2.5 Ml Drops) 1 drop EYE-BOTH BEDTIME [facility] Last Admin: 11/21/22 20:19 Dose: 1 drop Documented By: PEPITO Levothyroxine Sodium (Levothyroxine Sodium 175 Mcg Tablet) 175 mcg PO DAILY@0600 [facility] Last Admin: 11/22/22 04:43 Dose: 175 mcg Documented By: PEPITO Magnesium Oxide (Magnesium Oxide 400 Mg Tablet) 200 mg PO DAILY [facility] Last Admin: 11/22/22 09:30 Dose: 200 mg Documented By: BRYN Melatonin (Melatonin 3 Mg Tablet) 6 mg PO BEDTIME [facility] Last Admin: 11/21/22 20:17 Dose: 6 mg Documented By: PEPITO Pt Own ([Calquence ( Acalabrutinib Mal)] 100 Mg Tab 100 mg PO BID [facility] Last Admin: 11/22/22 09:35 Dose: 100 mg Documented By: BRYN Nystatin (Nystatin Powder 15 Gm Bottle) 1 appl TOPICAL BID [facility]; Protocol Last Admin: 11/22/22 09:35 Dose: 1 appl Documented By: BRYN Polyethylene Glycol (Polyethylene Glycol 3350 17 Gm Powd.Pack) 17 gm PO BID [facility] Last Admin: 11/22/22 09:33 Dose: 17 gm Documented By: BRYN Prednisolone Acetate (Prednisolone Acetate 1 % Oph Susp 5 Ml Drpbtl) 1 drop EYE-RIGHT DAILY [facility] Last Admin: 11/22/22 09:34 Dose: 1 drop Documented By: BRYN Prednisone (Prednisone 1 Mg Tablet) 6 mg PO DAILY [facility] Last Admin: 11/22/22 09:31 Dose: 6 mg Documented By: BRYN Senna (Sennosides 8.6 Mg Tablet) 17.2 mg PO DAILY PRN PRN Reason: Constipation Sodium Chloride (0.9 % Sodium Chloride Flush 3 Ml Syringe) 3 ml IVFLUSH QSHIFT [facility] Last Admin: 11/22/22 09:36 Dose: Not Given Documented By: BRYN Non-Admin Reason: No Access Timolol Maleate (Timolol Maleate 0.5 % Oph Mona 5 Ml Drbtl) 1 drop EYE-RIGHT BID [facility] Last Admin: 11/22/22 09:34 Dose: 1 drop Documented By: BRYN Labs 11/20/22 09:28 11/22/22 06:43 Labs: Laboratory Results - last 24 hr 11/21/22 11/21/2211/22/23 16:10 19:50 06:43 Anion Gap 13 Estim Creat Clear Calc 51.1 Estimated GFR 38 POC Glucose 287 H 313 H Random Glucose 159 H Calcium 8.6 11/22/22 11/22/22 11/22/22 07:09 11:29 15:34 Anion Gap Estim Creat Clear Calc Estimated GFR POC Glucose 174 H 384 H* 343 H Random Glucose Calcium Assessment and Plan (1) Acute kidney injury superimposed on CKD: Status: Acute Plan 72-year-old female with past medical history of CHF, CLL, COPD, comes into the hospital with complaints of shortness of breath found to have CHF exacerbation, LEO, and hyperkalemia.?She was found to have UTI with ESBL E coli sensitive to meropenem.? Developed worsening acute on chronic renal failure with oliguria requiring temporary dialysis catheter and dialysis treatments in ICU? ICU step down patient discussed with Dr. Tesfaye.? She did require respiratory support with bipap but has been weaned. Has hx of LATONYA diagnosed by no apneic episodes reported by bellstand attendant. While in ICU developed hyperkalemia and uremia and secondarily bradycardia with Wenckebach.? As creatinine has improved, Wenckebach has resolved with very occasional dropped QRS is noted.? Bradycardia has also resolved.? Vitals are now stable and dialysis catheter has been removed.? was transferred out of ICU to medical floor and has remained stbale 1.Acute pyelonephritis with left hydronephrosis -resolved -meropenem (10)completed 2.Acute diastolic CHF exacerbation. - Resolved -maintenance bumex -follow renals/divalents 3.Mobitz 1 second degree heart block - HR initially in 30s/40s improved to 80s/90s with treatment of LEO/CHF. - follow-up clinic 4.LEO on CKD 3 -baseline -follow renals/divalents 5.COPD - no acute exacerbation - continue home inhalers - on chronic prednisone - continue home dose 6.Diabetes?uncontrolled -continue Lantus; adjust as indicated -lispro correctional scale -adjust as indicated Heparin subq Full code dispo: Likely?home once herman lift available 11/22 Time Spent With Patient Time: Total time managing care of this patient today ____ minutes. Quality Stroke Does the patient have a stroke diagnosis?: No VTE Prior VTE?: No VTE Risk Level:: Medical - moderate - high VTE Device Contraindication: Treatment Not Indicated VTE Drug Contraindication: N/A - Med Ordered
[2022-11-22] MEDS: 0.9 % Sodium Chloride Flush 3 ML SYRINGE IVFLUSH (16:09)
--- NOTE | 2022-11-22 19:19 | PC.NURSE ---
Pt has LR fluids ordered; unable to obtain IV access. Provider notified and aware.
[2022-11-22 19:31] VITALS: BP 137/62; PULSE 82; RESP 19; TEMP 36.1; O2SAT 100
[2022-11-22 20:28] LABS: Glucose, Whole Blood 216 mg/dL (60-115)
[2022-11-22] MEDS: Atorvastatin Calcium 10 MG TABLET PO (22:08)
[2022-11-22] MEDS: Melatonin 3 MG TABLET 6 MG PO (22:08)
[2022-11-22] MEDS: Potassium Chloride Packet 20 MEQ PACKET 40 MEQ PO (22:09)
[2022-11-22] MEDS: Insulin Glargine,Hum.rec.anlog 100 UNIT/ML 10 ML VIAL 10 UNIT SUBCUT (22:09)
[2022-11-22] MEDS: Latanoprost 0.005 % Ophth Sol 2.5 ML DROPS 1 DROP EYE-BOTH (22:15)
[2022-11-22 23:36] VITALS: BP 134/59; PULSE 74; RESP 18; TEMP 36.3; O2SAT 100
[2022-11-23] MEDS: Heparin Sodium,Porcine 5,000 UNIT/ML VIAL 5000 UNIT SUBCUT ×2 (01:17→09:02)
[2022-11-23] MEDS: guaiFENesin DM 100/10/5 ML 5 ML SYRUP 10 ML PO (01:17)
[2022-11-23 03:29] VITALS: BP 135/63; PULSE 75; RESP 18; TEMP 36; O2SAT 100
[2022-11-23] MEDS: Levothyroxine Sodium 175 MCG TABLET PO (05:39)
[2022-11-23 05:48] VITALS: BMI 44.0
[2022-11-23 07:16] VITALS: BP 134/63; PULSE 80; RESP 17; TEMP 36.2; O2SAT 98
[2022-11-23 07:31] LABS: Glucose, Whole Blood 116 mg/dL (60-115)
[2022-11-23] MEDS: predniSONE 1 MG TABLET 6 MG PO (09:03)
[2022-11-23] MEDS: Magnesium Oxide 400 MG TABLET 200 MG PO (09:03)
[2022-11-23] MEDS: Bumetanide 1 MG TABLET 2 MG PO (09:03)
[2022-11-23] MEDS: Potassium Chloride Packet 20 MEQ PACKET 40 MEQ PO (09:04)
[2022-11-23] MEDS: Insulin Glargine,Hum.rec.anlog 100 UNIT/ML 10 ML VIAL 20 UNIT SUBCUT (09:04)
[2022-11-23] MEDS: Insulin Lispro 100 UNIT/ML 3 ML VIAL SUBCUT ×3 (09:04→11:48)
[2022-11-23] MEDS: timoloL maleate 0.5 % Oph Sol 5 ML DRBTL 1 DROP EYE-RIGHT (09:06)
[2022-11-23] MEDS: Artificial Tears 15 ML DROPS 1 DROP EYE-BOTH (09:06)
[2022-11-23] MEDS: prednisoLONE Acetate 1 % Oph Susp 5 ML DRPBTL 1 DROP EYE-RIGHT (09:06)
[2022-11-23] MEDS: Nystatin Powder 15 GM BOTTLE 1 APPL TOPICAL (10:26)
--- NOTE | 2022-11-23 11:14 | MHC.CM.PN ---
Pt status remains medically cleared for discharge. This CM called and spoke with pts lance Gomez to check in about the herman lift delivery, per Patricia the herman lift should be delivered today or tomorrow. Patricia also states she is waiting for our MD to order the bariatric bed, they have a regular hospital bed in the home at this time. This CM called [facility] to inquire about herman lift, per [facility], the herman lift was delivered to the pts home yesterday 11/22 and family were present in the home and instructed on its use. This CM also inquired about about the bariatric bed and per [facility], the pt has a regular hospital bed in the home, and does not qualify for a bariatric bed which are for pts 350lb+, and pt is 271lb. This CM met with pt, and since herman lift and hospital bed are present in the home, pt to be discharged today. Second IMM given 11/23. Transport set up via BLS/[facility] for 2pm today. Pts lance Gomez called and notified of D/C. [facility] contacted [facility] and will resume pts care at home.
[2022-11-23 11:34] VITALS: BP 140/65; PULSE 80; RESP 18; TEMP 36.2; O2SAT 100
[2022-11-23 11:44] LABS: Glucose, Whole Blood 203 mg/dL (60-115)
--- NOTE | 2022-11-23 14:03 | P.DS_ITS ---
DS: Providers Provider Date of Service: 11/23/22 Date of admission: 10/28/22 01:10 Date of discharge: 11/23/22 Primary care physician: Tam Corea MD Consults: 10/28/22 06:17 Consult to Nephrology Routine Consulting Provider: [facility] Reason for consultation: LEO, Hyperkalemia Has provider been notified: No 10/29/22 13:14 Consult to Urology Routine Consulting Provider: Shahid Quinones Reason for consultation: rt hydronephrosis Has provider been notified: No 11/09/22 16:52 Consult to Cardiology Routine Consulting Provider: [facility] – [place] [facility] Reason for consultation: acute diastolic CHF exacerbation,Mobitz 1 second degree heart block Has provider been notified: No 11/20/22 16:20 Consult to Nephrology Routine Consulting Provider: [facility] Reason for consultation: worsening LEO again Has provider been notified: No DS: Diagnosis Discharge Diagnosis (1) Acute kidney injury superimposed on CKD: Status: Acute (2) Heart block AV second degree: Status: Acute (3) CHF exacerbation: Status: Acute DS: Summary Hospital Course Hospital Course: 72-year-old female with past medical history of CKD, CLL, history of congestive heart failure, HLD, HTN, hypothyroidism, peripheral vascular disease, COPD, comes into the hospital with complaints of shortness of breath.? Patient reports that she just came home from [facility] on Tuesday, and then developed shortness of breath 2 days prior to presentation, she also has slight lower extremity edema, has orthopnea, PND, but denies any chest pain, no palpitations, has no dizziness, no headache or change in vision.? Denies any abdominal pain nausea vomiting, no diarrhea constipation, no urinary symptoms.? On arrival to the ED patient noted to be bradycardic with heart rate in the 30s with EKG showing sinus bradycardia, labs were significant for WBC count of 17.4- which appears to be chronically elevated, hemoglobin of 7.8 which is lower than her most recent with guaiac negative stools, her labs also showed a potassium level of 7.0, BUN of 88, creatinine of 4.59 with a most recent creatinine of 1.1 on 08/06, chest x-ray showing pulmonary edema and CHF and pleural effusion Abdominal pelvic CT shows mild left hydronephrosis with no calculi, ER Course Patient given Lokelma, calcium gluconate, furosemide, breathing treatments, with improvement in her heart rate, slightly improved potassium, as she is asymptomatic otherwise she will be admitted to telemetry Hospital Course In the emergency room patient was desatting to the 70s on BiPAP and was urgently intubated. She was initially transferred to ICU where she was subsequently weaned off the vent secondary to Lasix drip. Seen in consultation by Cardiology for CHF and bradycardia; CHF resolved with aggressive diuresis and bradycardia start to be a combination of acute kidney injury hyperkalemia and metoprolol. She was subsequently weaned off ventilator and transferred to general medical floor. She did develop a two-to-one AV block which was thought to be again related to hyperkalemia. She continued to do well to the point where she is medically acceptable to return home she receives [facility] and senior living care Time Spent with Patient Time attestation: Total time managing care of this patient today ____ minutes. Discharge coordination time: Greater than 30 minutes Quality: Safe Use of Opioids Does Pt have an Active Cancer Diagnosis on the Problem List?: No Quality: Stroke Does the patient have a stroke diagnosis?: No Physical Exam Vital Signs: Vital Signs: Last Vital Signs Temp 97.1 F 11/23/22 11:34 Pulse 80 11/23/22 11:34 Resp 18 11/23/22 11:34 BP 140/65 H 11/23/22 11:34 Pulse Ox 100 11/23/22 11:34 O2 Del Method Room Air 11/23/22 11:34 O2 Flow Rate 97 11/05/22 03:24 FiO2 28 11/02/22 07:50 Oxygen Flow Rate 4 10/27/22 20:01 BMI result Body Mass Index 44.0 Const: Other: No acute issues overnight Resp: Other: Clear to auscultation bilaterally no rales rhonchi or wheezes Cardio: Other: No S4; positive S1-S2; no S3 murmurs rubs or gallop GI: Other: Soft nontender nondistended normoactive bowel sounds Extrem: Other: Positive edema bilaterally DS: Data Data Completed and Pending Completed studies during hospitalization [Text1]: Procedures Assistance with Respiratory Ventilation, Less than 24 Consecutive Hours, Continuous Positive Airway Pressure (07/30/22) Drainage of Left Main Bronchus, Via Natural or Artificial Opening Endoscopic, Diagnostic (11/19/21) Drainage of Left Pleural Cavity, Percutaneous Approach (11/19/21) Drainage of Right Main Bronchus, Via Natural or Artificial Opening Endoscopic, Diagnostic (11/19/21) Drainage of Right Pleural Cavity, Percutaneous Approach (11/19/21) Excision of Right Inguinal Lymphatic, Percutaneous Approach, Diagnostic (11/19/21) Excision of Thorax Lymphatic, Percutaneous Endoscopic Approach, Diagnostic (11/19/21) Insertion of Endotracheal Airway into Trachea, Via Natural or Artificial Opening (11/19/21) Insertion of Infusion Device into Superior Vena Cava, Percutaneous Approach (11/19/21) Inspection of Tracheobronchial Tree, Via Natural or Artificial Opening Endoscopic (11/19/21) Introduction of Remdesivir Anti-infective into Peripheral Vein, Percutaneous Approach, [employer] (10/11/21) Introduction of Vasopressor into Central Vein, Percutaneous Approach (11/19/21) Respiratory Ventilation, Greater than 96 Consecutive Hours (11/19/21) Ultrasonography of Superior Vena Cava, Guidance (11/19/21) Labs on day of discharge: Laboratory Results - last 24 hr 11/22/22 11/22/22 11/23/22 15:34 20:17 07:26 POC Glucose 343 H 216 H 116 H 11/23/22 11:36 POC Glucose 203 H Discharge Plan Discharge Anticipated Discharge Date/Time: 11/12/22 17:28 Patient Disposition: er [facility] Discharge Diagnosis: bradycardia ,leo Referrals: [facility] [Outside] - 1 Day (RESUMPTION OF CARE) aTm Corea MD [Primary Care Provider] - 1 Month (PHONE APPT SCHEDULED FOR 12/20 AT 3:15PM TO DISCUSS MEDICAL NECESSITY FOR PT TO HAVE A BARIATRIC BED D/T STRICT MEDICARE GUIDELINES. ) Discharge Medications: Continued levothyroxine 175 mcg tablet 175 mcg PO DAILY@0600 citalopram 20 mg tablet 40 mg PO DAILY simvastatin 20 mg tablet 20 mg PO BEDTIME chlordiazepoxide HCl 10 mg capsule 10 mg PO BEDTIME insulin lispro protamin-lispro 100 unit/mL (75-25) insulin pen 0 unit subcut QIDACHS Protocol: Insulin Correction Scale Less than or equal to 110 ---- Give (units): 0 111 to 150 Give (units): 0 151 to 200 Give (units): 2 201 to 250 Give (units): 4 251 to 300 Give (units): 6 301 to 350 Give (units): 8 Greater than 350 Give (units): 10 Call MD if Blood Glucose > : 350 Januvia 100 mg tablet 100 mg PO DAILY Fleet Enema 19-7 gram/118 mL Enema 118 ml KS BEDTIME PRN (Reason: Constipation) guaifenesin 600 mg Tablet Extended Release 12hr 600 mg PO BID acetaminophen [Tylenol] 325 mg Tablet 650 mg PO Q4H PRN (Reason: Pain (Scale Score 4-6)) polyethylene glycol 3350 [Miralax] 17 gram/dose Powder 17 g PO BID amlodipine 10 mg tablet 10 mg PO DAILY guaifenesin 100 mg/5 mL Liquid 200 mg PO Q4H PRN (Reason: Pain (Scale Score 1-3)) lorazepam 0.5 mg tablet 0.5 mg PO BID PRN (Reason: Anxiety) bisacodyl 10 mg Suppository 10 mg KS DAILY PRN (Reason: Constipation) hydroxyzine HCl 25 mg tablet 25 mg PO DAILY hydroxychloroquine 200 mg tablet 200 mg PO BID magnesium 200 mg Tablet 400 mg PO DAILY biotin 5 mg Tablet 5 mg PO DAILY riboflavin (vitamin B2) 400 mg Tablet 400 mg PO DAILY Calquence (acalabrutinib mal) 100 mg Tablet 100 mg PO Q12H Qty: 60 3RF Incruse Ellipta 62.5 mcg/actuation Blister With Device 1 inh INHALATION DAILY budesonide-formoterol [Symbicort] 160-4.5 mcg/actuation Hfa Aerosol Inhaler 2 puff INHALATION BID latanoprost 0.005 % drops 1 drp ophthalmic (eye) BEDTIME albuterol sulfate 0.63 mg/3 mL Solution For Nebulization 0.63 mg INHALATION Q2H PRN (Reason: Wheezing) sennosides [senna] 8.6 mg Tablet 17.2 mg PO DAILY PRN (Reason: Constipation) prwjzfdqxz-beomzhmmmiaqe-jidh 50-325-40 mg tablet 1 tab PO Q6H PRN (Reason: Headache) prednisolone acetate 1 % drops,suspension 1 drp ophthalmic-Right DAILY metoprolol tartrate 50 mg Tablet 50 mg PO BID timolol maleate 0.5 % drops 1 drp ophthalmic-Right BID coenzyme Q10 [CoQ-10] 100 mg Capsule 150 mg PO DAILY melatonin 5 mg Tablet 5 mg PO BEDTIME Simbrinza 1-0.2 % drops,suspension 1 drp ophthalmic-Right BID insulin glargine [Lantus Solostar U-100 Insulin] 100 unit/mL (3 mL) insulin pen 16 unit subcut BID Hold Instructions: Resume on 05/10/22. Artificial Tears (cmc) 1 % Drops 1 drp OPHTHALMIC (EYE) BID levalbuterol HCl 1.25 mg/3 mL Solution For Nebulization 1.25 mg INHALATION QID potassium chloride 20 mEq Tablet,Er Particles/Crystals 40 meq PO DAILY Qty: 30 0RF bumetanide 1 mg Tablet 2 mg PO BID@0800,1700 Qty: 60 0RF Protocol: Hold for SBP< HOLD for SBP < : 90 sennosides-docusate sodium [Senna-S] 8.6-50 mg Tablet 1 tab-cap PO DAILY diphenhydramine-zinc acetate 2-0.1 % Cream 1 appl TOPICAL BID prednisone 1 mg Tablet 6 mg PO DAILY nystatin 100,000 unit/gram Powder 1 appl TOPICAL BID Discharge Orders: Discharge Order (Routine); Ordered 11/23/22 Ordered By: Logan Martinez Diet: Advance to usual diet Activity on Discharge: As tolerated Stand Alone Forms: Patient Portal Discharge page Care Plan Goals: Resume all medicines as pre-hospital Health Concerns: Follow-up with PCP on telemed call as scheduled Plan of Treatment: Continue VNA as previously Assessment: See discharge summary
--- NOTE | 2022-11-24 11:41 | W.MHC.F2F ---
Service Date Service Date: 11/24/22 Encounter Date of encounter: 11/23/22 Encounter: Acute hospitalization Reasons for Services Signs and symptoms assessed: Vitals signs/response to therapies Reason for alf: medication management, medication treatment and teach disease management Homebound: Leaving the home is medically contraindicated at this time without the asist of a device and/or another person due th the listed conditions above and below. Reason homebound: unsteady gait / fall risk, poor balance / fall risk and weakness related to hospital stay Certification: Based on the above findings, I certify that this patient is confined to the home and needs intermittent alf care, physical therapy and/or speech therapy, or continues to need occupational therapy. The patient is under my care, and I have initiated the establishment of the plan of care. The patient will be followed by a physician who will periodically review the plan of care. Time Spent With Patient Time: Total time managing care of this patient today ____ minutes.
== END 2022-11-23 16:14 | disposition skilled nursing facility (03) | DRG 853 ==
LOC: HO.ED 22:40 → HO.EDOVER 10-28 01:20 → HO.IMC 10-28 14:04 → HO.ICU 10-30 14:17 → HO.IMC 11-03 16:45
PROVIDERS: Hospitalist; Internal Medicine; Internal Medicine Cardiovascular Disease; Internal Medicine Nephrology; Internal Medicine Pulmonary Disease; Nurse Practitioner Acute Care; Nurse Practitioner Family; Physician Assistant; Physician Assistant Medical; Urology; Admitting Provider Internal Medicine; Emergency Provider Student in an Organized Health Care Education/Training Program; PCP Internal Medicine; Visit Provider Hospitalist
PROC: 0T788DZ Dilation of Bilateral Ureters with Intraluminal Device, Via Natural or Artificial Opening Endoscopic (ICD-10-PCS; principal; 2022-11-08 17:40)
DX: A41.51 Sepsis due to Escherichia coli [E. coli] (principal); I50.33 Acute on chronic diastolic (congestive) heart failure; N17.0 Acute kidney failure with tubular necrosis; I13.0 Hypertensive heart and chronic kidney disease with heart failure and stage 1 through stage 4 chronic kidney disease, or unspecified chronic kidney disease; N13.6 Pyonephrosis; Z68.41 Body mass index [BMI] 40.0-44.9, adult; J96.11 Chronic respiratory failure with hypoxia; Z16.12 Extended spectrum beta lactamase (ESBL) resistance; C91.10 Chronic lymphocytic leukemia of B-cell type not having achieved remission; N18.30 Chronic kidney disease, stage 3 unspecified; E03.9 Hypothyroidism, unspecified; E11.51 Type 2 diabetes mellitus with diabetic peripheral angiopathy without gangrene; E87.5 Hyperkalemia; I27.20 Pulmonary hypertension, unspecified; E11.22 Type 2 diabetes mellitus with diabetic chronic kidney disease; E66.01 Morbid (severe) obesity due to excess calories; R00.1 Bradycardia, unspecified; I35.0 Nonrheumatic aortic (valve) stenosis; T38.0X5A Adverse effect of glucocorticoids and synthetic analogues, initial encounter; I87.8 Other specified disorders of veins; I44.0 Atrioventricular block, first degree; D63.1 Anemia in chronic kidney disease; D63.0 Anemia in neoplastic disease; I95.9 Hypotension, unspecified; I44.1 Atrioventricular block, second degree; Q62.5 Duplication of ureter; R32 Unspecified urinary incontinence; T44.7X5A Adverse effect of beta-adrenoreceptor antagonists, initial encounter; G93.2 Benign intracranial hypertension; Z20.822 Contact with and (suspected) exposure to COVID-19; Z98.2 Presence of cerebrospinal fluid drainage device; Z87.891 Personal history of nicotine dependence; Z86.718 Personal history of other venous thrombosis and embolism; Z79.4 Long term (current) use of insulin; Z79.01 Long term (current) use of anticoagulants; Z79.52 Long term (current) use of systemic steroids; Z79.60 Long term (current) use of unspecified immunomodulators and immunosuppressants; Z79.890 Hormone replacement therapy; Z79.899 Other long term (current) drug therapy
CPT/HCPCS: 36415; 36600; 71045; 74176; 76775; 80048; 80053; 81001; 82040; 82272; 82803; 82947; 83521; 83735; 83880; 84100; 84443; 84484; 85025; 85027; 85610; 86021; 86160; 86704; 86706; 86803; 86850; 86900; 86901; 86923; 87040; 87086; 87088; 87186; 87340; 87635; 90999; 93005; 93306; 93971; 94640; 94660; 97110; 97163; 97167; 97530; 99285; C1758; C1769; C2617; J0131; J0613; J1265; J1610; J1643; J1940; J1956; J2185; J2250; J2270; J2405; J3010; P9016; P9047; Q9957; Q9967

== ENCOUNTER → 2022-10-27 19:58 | Outpatient (BNV) | payer MEDICARE, MEDICAID, SELFPAY | PROVIDERS: Admitting Provider Internal Medicine; Emergency Provider Student in an Organized Health Care Education/Training Program; Visit Provider Internal Medicine Cardiovascular Disease | DX: R00.1 Bradycardia, unspecified (principal) | CPT/HCPCS: 93010 ==

== ENCOUNTER 2022-10-28 01:10 | Outpatient (BNV) | payer MEDICARE, MEDICAID, SELFPAY | END 2022-10-28 07:14 | PROVIDERS: Admitting Provider Internal Medicine; Emergency Provider Student in an Organized Health Care Education/Training Program; Visit Provider Internal Medicine Cardiovascular Disease | DX: I49.9 Cardiac arrhythmia, unspecified (principal) | CPT/HCPCS: 93010; 93306 ==

== ENCOUNTER 2022-10-28 01:10 | Outpatient (BNV) | payer MEDICARE, MEDICAID, SELFPAY | END 2022-11-01 23:14 | PROVIDERS: Admitting Provider Internal Medicine; Emergency Provider Student in an Organized Health Care Education/Training Program; PCP Internal Medicine; Visit Provider Internal Medicine | DX: I49.2 Junctional premature depolarization (principal); I44.5 Left posterior fascicular block; R94.31 Abnormal electrocardiogram [ECG] [EKG] | CPT/HCPCS: 93010 ==

== ENCOUNTER → 2022-10-28 01:10 | Outpatient (BNV) | payer MEDICARE, MEDICAID, SELFPAY | PROVIDERS: Admitting Provider Internal Medicine; Emergency Provider Student in an Organized Health Care Education/Training Program; Visit Provider Urology | DX: N13.2 Hydronephrosis with renal and ureteral calculous obstruction (principal) | CPT/HCPCS: 52332; 74420; 99222 ==

== ENCOUNTER → 2022-10-28 01:10 | Outpatient (BNV) | payer MEDICARE, MEDICAID, SELFPAY | PROVIDERS: Admitting Provider Internal Medicine; Emergency Provider Student in an Organized Health Care Education/Training Program; Visit Provider Internal Medicine | DX: N17.9 Acute kidney failure, unspecified (principal); N18.9 Chronic kidney disease, unspecified; I44.1 Atrioventricular block, second degree; I50.9 Heart failure, unspecified | CPT/HCPCS: 99223; 99231; 99232; 99233; 99239; 99499; G0180 ==

== ENCOUNTER → 2022-10-28 01:10 | Outpatient (BNV) | payer MEDICARE, MEDICAID, SELFPAY | PROVIDERS: Admitting Provider Internal Medicine; Emergency Provider Student in an Organized Health Care Education/Training Program; Visit Provider Physician Assistant Medical | DX: N18.30 Chronic kidney disease, stage 3 unspecified (principal); I50.30 Unspecified diastolic (congestive) heart failure; I44.1 Atrioventricular block, second degree; N12 Tubulo-interstitial nephritis, not specified as acute or chronic; R00.1 Bradycardia, unspecified; E11.9 Type 2 diabetes mellitus without complications; G47.33 Obstructive sleep apnea (adult) (pediatric); Z79.4 Long term (current) use of insulin; N17.9 Acute kidney failure, unspecified; R41.82 Altered mental status, unspecified; I50.9 Heart failure, unspecified; E87.5 Hyperkalemia | CPT/HCPCS: 36556; 99291 ==

== ENCOUNTER → 2022-10-28 01:10 | Outpatient (BNV) | payer MEDICARE, MEDICAID, SELFPAY | PROVIDERS: Admitting Provider Internal Medicine; Emergency Provider Student in an Organized Health Care Education/Training Program; Visit Provider Internal Medicine Pulmonary Disease | DX: N12 Tubulo-interstitial nephritis, not specified as acute or chronic (principal); R00.1 Bradycardia, unspecified; N17.9 Acute kidney failure, unspecified; I50.30 Unspecified diastolic (congestive) heart failure; C91.10 Chronic lymphocytic leukemia of B-cell type not having achieved remission; E66.01 Morbid (severe) obesity due to excess calories; E11.9 Type 2 diabetes mellitus without complications; Z79.4 Long term (current) use of insulin; G47.33 Obstructive sleep apnea (adult) (pediatric) | CPT/HCPCS: 99291 ==

== ENCOUNTER → 2022-10-28 01:10 | Outpatient (BNV) | payer MEDICARE, MEDICAID, SELFPAY | PROVIDERS: Admitting Provider Internal Medicine; Emergency Provider Student in an Organized Health Care Education/Training Program; Visit Provider Internal Medicine Cardiovascular Disease | DX: I44.1 Atrioventricular block, second degree (principal); E87.5 Hyperkalemia | CPT/HCPCS: 99222; 99233 ==

== ENCOUNTER 2022-11-26 17:01 | Inpatient (IN) | payer MEDICARE, MEDICAID, SELFPAY ==
[2022-11-26] VITALS (10 sets, daily range): BP systolic 102–170; BP diastolic 36–77; PULSE 71–75; RESP 16–29; TEMP 36.9–38.2; O2SAT 91–99; BMI 47.8
--- NOTE | ~2022-11-26 | IR_ITS ---
Chavez catheter placement INDICATIONS: IV access for antibiotic therapy After informed and written consent was obtained an official timeout was performed immediately prior to the procedure. I was personally responsible for the administration of moderate sedation services, all requirements were followed, an independent trained observer was utilized. PROCEDURE: The skin was prepped and draped in usual fashion. 1% Xylocaine was used for local anesthetic. Under ultrasound guidance a micropuncture needle was placed into the right internal jugular vein. A 5 Ghanaian peel-away sheath was placed. A subcutaneous tunnel was created and a 5 Ghanaian single-lumen cuffed PICC line was tunneled beneath the skin surface and subsequently through the peel-away sheath into the SVC. The overall catheter length was measured at 24 cm. The catheter easily flushed. Heparinized saline was instilled. IR/IR cvc insert central tunnel IMPRESSION: Placement of a 5 Ghanaian single-lumen Chavez catheter via the right internal jugular approach measuring 24 cm in length.
--- NOTE | ~2022-11-26 | XR_ITS ---
EXAMINATION: XR CHEST CLINICAL INFORMATION: PICC line placement COMPARISON: Chest radiograph from 11/26/2022 TECHNIQUE: Frontal view of the chest was obtained. FINDINGS: Interval placement of right-sided central venous catheter via an internal jugular vein approach with its distal tip terminating in the mid SVC. Prominence of the pulmonary vasculature. No pneumothorax. Trachea is midline. Cardiac mediastinal silhouette is enlarged. Aorta demonstrates atherosclerotic calcifications. No large pleural effusion. Degenerative changes of the thoracolumbar spine. Soft tissues are unremarkable. XR/XR chest 1V IMPRESSION: 1. Interval placement of right-sided central venous catheter via an internal jugular vein approach with its distal tip terminating in the mid SVC. 2. Prominence of the pulmonary vasculature.
--- NOTE | ~2022-11-26 | US_ITS ---
EXAMINATION: US RETROPERITONEAL LIMITED (RENAL ONLY) CLINICAL INFORMATION: LEO. COMPARISON: Ultrasound renal bilateral from 10/28/2022 TECHNIQUE: Grayscale and color images of the bilateral kidneys FINDINGS: RIGHT KIDNEY: 8.7 x 5.2 x 5.5 cm (SAG x AP x TRV). The kidney is normal in size, contour, and echogenicity. Renal cortical thickness is normal. No calculi or focal parenchymal lesions. No hydronephrosis. Multiple right-sided renal cysts are noted the largest measuring up to 8 mm, simple appearing, not requiring follow-up. LEFT KIDNEY: 8.8 x 4.9 x 6.0 cm (SAG x AP x TRV). The kidney is normal in size, contour, and echogenicity. Renal cortical thickness is normal. No calculi or focal parenchymal lesions. No hydronephrosis. US/US renal BI IMPRESSION: 1. No nephrolithiasis or hydronephrosis. 2. Multiple right-sided renal cysts are noted the largest measuring up to 8 mm, simple appearing, not requiring follow-up.
--- NOTE | ~2022-11-26 | XR_ITS ---
EXAMINATION: XR CHEST CLINICAL INFORMATION: Cough and dyspnea. COMPARISON: Chest x-ray 11/05/2022 TECHNIQUE: Frontal portable view of the chest was obtained. 1955 hours FINDINGS: Patient's rotated to left. Heart size enlarged. Calcification of mitral valve annulus. Vascular calcification of thoracic aorta. Lung volume low. Central pulmonary vascular congestion similar prior chest x-ray 11/06/2023. No focal dense consolidation. No large pleural effusions. XR/XR chest 1V IMPRESSION: Central pulmonary vascular congestion similar prior chest x-ray 11/06/2023.
--- NOTE | ~2022-11-26 | IR_ITS ---
Chavez catheter placement INDICATIONS: IV access for antibiotic therapy After informed and written consent was obtained an official timeout was performed immediately prior to the procedure. I was personally responsible for the administration of moderate sedation services, all requirements were followed, an independent trained observer was utilized. PROCEDURE: The skin was prepped and draped in usual fashion. 1% Xylocaine was used for local anesthetic. Under ultrasound guidance a micropuncture needle was placed into the right internal jugular vein. A 5 Uzbek peel-away sheath was placed. A subcutaneous tunnel was created and a 5 Uzbek single-lumen cuffed PICC line was tunneled beneath the skin surface and subsequently through the peel-away sheath into the SVC. The overall catheter length was measured at 24 cm. The catheter easily flushed. Heparinized saline was instilled. IR/IR us guide venous access IMPRESSION: Placement of a 5 Uzbek single-lumen Chavez catheter via the right internal jugular approach measuring 24 cm in length.
--- NOTE | 2022-11-26 17:59 | PHA.MEDREC ---
Pharmacy Consult ? Medication Reconciliation Pharmacy has completed the medication reconciliation. patient just discharged from [facility] [place] on 11/23/22, 3 days ago. Discharge summary used to complete med rec. Freddie SteeleD
--- NOTE | 2022-11-26 19:32 | ECG_ITS ---
Test Reason : DYSPNEA Blood Pressure : / mmHG Vent. Rate : 075 BPM Atrial Rate : 075 BPM P-R Int : 194 ms QRS Dur : 104 ms QT Int : 406 ms P-R-T Axes : 053 099 002 degrees QTc Int : 453 ms Normal sinus rhythm Rightward axis Cannot rule out Anterior infarct (cited on or before 28-OCT-2022) Abnormal ECG When compared with ECG of 01-NOV-2022 23:14, Sinus rhythm has replaced Junctional rhythm T wave amplitude has increased in Lateral leads QT has shortened Referred By: Viki Sutherland Electronically Signed By:AMANDA RAMIREZ
--- NOTE | 2022-11-26 19:34 | ED_ITS ---
HPI - SOB/Dyspnea General Chief Complaint: Dyspnea Stated Complaint: bedbound, SOb x1day w/cough, Time Seen by Provider: 11/26/22 18:49 Source: patient, family and old records reviewed Mode of arrival: EMS Limitations: no limitations History of Present Illness HPI Narrative: 72 yo female with hx of CKD, CHF, CLL, COPD, DM, LATONYA, heart block, obesity just admitted here 10/28 to 11/23 for LEO on CKD heart block and CHF - she was intubated while in the ED but weaned off in ICU post lasix drip. She has been at home and daughter noted increased cough and sputum production she also appears more swollen. No fevers, no home O2 use. Daughter checked O2 sat and at one point it read 70s. MD elicited complaint: shortness of breath and cough Pertinent past history: COPD and congestive heart failure Onset (ago): day(s) (3) Context: recent illness Timing: constant Severity: moderate Exacerbating factors: lying flat and exertion Relieving factors: oxygen and rest Associated symptoms: cough and sputum production Treatment prior to arrival: none Related Data Home Medications Medication Instructions Recorded Confirmed chlordiazepoxide HCl 10 mg capsule 10 mg PO BEDTIME 10/08/21 11/26/22 citalopram 20 mg tablet 40 mg PO DAILY 10/08/21 11/26/22 insulin lispro protamine-lispro 0 unit subcut QIDACHS 10/08/21 11/26/22 100 unit/mL (75-25) subcutaneous pen levothyroxine 175 mcg tablet 175 mcg PO DAILY@0600 10/08/21 11/26/22 simvastatin 20 mg tablet 20 mg PO BEDTIME 10/08/21 11/26/22 sitagliptin phosphate 100 mg 100 mg PO DAILY 10/08/21 11/26/22 tablet (Januvia) latanoprost 0.005 % eye drops 1 drp ophthalmic (eye) BEDTIME 11/20/21 11/26/22 albuterol sulfate 0.63 mg/3 mL 0.63 mg inhalation Q2H PRN Wheezing 02/16/22 11/26/22 solution for nebulization brinzolamide 1 %-brimonidine 0.2 % 1 drp ophthalmic-Right BID 02/16/22 11/26/22 eye drops,suspension (Simbrinza) vmmozdlqaz-snidlolznubvu-klrlkcsv 1 tab PO Q6H PRN Headache 02/16/22 11/26/22 50 mg-325 mg-40 mg tablet coenzyme Q10 100 mg capsule 150 mg PO DAILY 02/16/22 11/26/22 (CoQ-10) insulin glargine 100 unit/mL (3 16 unit subcut BID 02/16/22 11/26/22 mL) subcutaneous pen (Lantus Solostar U-100 Insulin) melatonin 5 mg tablet 5 mg PO BEDTIME 02/16/22 11/26/22 metoprolol tartrate 50 mg tablet 50 mg PO BID 02/16/22 11/26/22 prednisolone acetate 1 % eye 1 drp ophthalmic-Right DAILY 02/16/22 11/26/22 drops,suspension sennosides 8.6 mg tablet (senna) 17.2 mg PO DAILY PRN Constipation 02/16/22 11/26/22 timolol maleate 0.5 % eye drops 1 drp ophthalmic-Right BID 02/16/22 11/26/22 carboxymethylcellulose sodium 1 % 1 drp ophthalmic (eye) BID 03/15/22 11/26/22 eye drops (Artificial Tears (carboxymethylcellulose)) budesonide-formoterol HFA 160 2 puff inhalation BID 04/27/22 11/26/22 mcg-4.5 mcg/actuation aerosol inhaler (Symbicort) umeclidinium 62.5 mcg/actuation 1 inh inhalation DAILY 04/27/22 11/26/22 blister powder for inhalation (Incruse Ellipta) acetaminophen 325 mg tablet 650 mg PO Q4H PRN Pain (Scale 06/08/22 11/26/22 (Tylenol) Score 4-6) amlodipine 10 mg tablet 10 mg PO DAILY high blood pressure 06/08/22 11/26/22 guaifenesin 600 mg tablet, 600 mg PO BID cough 06/08/22 11/26/22 extended release 12 hr polyethylene glycol 3350 17 17 g PO BID 06/08/22 11/26/22 gram/dose oral powder (Miralax) sodium phosphates 19 gram-7 118 ml TN BEDTIME PRN Constipation 06/08/22 11/26/22 gram/118 mL enema (Fleet Enema) levalbuterol HCl 1.25 mg/3 mL 1.25 mg inhalation QID 07/30/22 11/26/22 solution for nebulization biotin 5 mg tablet 5 mg PO DAILY 08/11/22 11/26/22 bisacodyl 10 mg rectal suppository 10 mg TN DAILY PRN Constipation 08/11/22 11/26/22 guaifenesin 100 mg/5 mL oral liquid 200 mg PO Q4H PRN Pain (Scale 08/11/22 11/26/22 Score 1-3) hydroxychloroquine 200 mg tablet 200 mg PO BID 08/11/22 11/26/22 hydroxyzine HCl 25 mg tablet 25 mg PO DAILY 08/11/22 11/26/22 lorazepam 0.5 mg tablet 0.5 mg PO BID PRN Anxiety 08/11/22 11/26/22 magnesium 200 mg tablet 400 mg PO DAILY 08/11/22 11/26/22 riboflavin (vitamin B2) 400 mg 400 mg PO DAILY 08/11/22 11/26/22 tablet diphenhydramine-zinc acetate 2 1 appl topical BID 10/27/22 11/26/22 %-0.1 % topical cream nystatin 100,000 unit/gram topical 1 appl topical BID 10/27/22 11/26/22 powder prednisone 1 mg tablet 6 mg PO DAILY 10/27/22 11/26/22 sennosides 8.6 mg-docusate sodium 1 tab-cap PO DAILY 10/27/22 11/26/22 50 mg tablet (Senna-S) Previous Rx's Medication Instructions Recorded bumetanide 1 mg tablet 2 mg PO BID@0800,1700 #60 tabs 08/06/22 potassium chloride 20 mEq 40 meq PO DAILY #30 tabs 08/06/22 tablet,extended release(part/cryst) acalabrutinib maleate 100 mg 100 mg PO Q12H #60 tabs 10/11/22 tablet (Calquence (acalabrutinib maleate)) Allergies Allergy/AdvReac Type Severity Reaction Status Date / Time oxycodone [From Percocet] Allergy Intermediate Rash Verified 04/27/22 11:42 lisinopril Allergy Unknown Unknown Verified 04/27/22 11:42 Review of Systems Review of Systems: Constitutional : No Fever, No Chills ENT/Mouth : No sore throat, No Rhinorrhea, No Swallowing Difficulty Eyes: No Eye Pain, No Swelling, No Redness Cardiovascular : No Chest Pain, positive SOB, No Orthopnea, positive Edema Respiratory : pos Cough, pos Sputum, No Wheezing, positive dyspnea Gastrointestinal : No Nausea, No Vomiting, No Diarrhea, No abdominal Pain, No Hematochezia, No Melena Genitourinary : No Dysuria, No Urinary Frequency, No Hematuria Musculoskeletal : No joint pain, No Myalgias Skin : No Skin Lesions, No rash Neuro : No Weakness, No Numbness, No Dizziness, No Headache Psych : No Anxiety/Panic, No Depression Heme/Lymph: No Bruising, No Lymphadenopathy Endocrine : No Polyuria, No Polydipsia All other systems reviewed and are negative [facility] Past Medical History Attestation statement: The following information was validated with the patient. Medical History Acute respiratory failure Bradycardia Chronic lymphocytic leukemia (CLL), B-cell CKD (chronic kidney disease) CLL (chronic lymphocytic leukemia) Congestive heart failure Congestive heart failure COVID COVID-19 Diabetes mellitus with insulin therapy Dyspnea Essential hypertension HLD (hyperlipidemia) HTN (hypertension) Hypothyroidism Hypoxia Infection with ESBL Klebsiella oxytoca Influenza A Klebsiella pneumonia Lower extremity edema Lymphadenopathy, mediastinal Migraine Obesity Pleural effusion Pleural effusion Pneumonia due to COVID-19 virus Pseudotumor cerebri PVD (peripheral vascular disease) Suspected deep tissue injury Surgical History H/O cataract extraction H/O hysterectomy for benign disease Hx of cholecystectomy S/P appendectomy Family History Family History Mother Heart attack, Onset Age: 92 Father Heart attack, Onset Age: 66 Other Diabetes Social History Social History Household Members: Family Household Members Other:: patient came from a rehab facility, been there since dec Housing: House Do you presently have visiting nurse or other home services: Yes Alcohol intake: never Patient Tobacco Use Status: Former Tobacco user Advance Directives: Yes Advance Directives on File: Yes Advance Directives Date on File: 09/26/20 service: No Current occupational status: disabled Physical Exam Vital Signs: Vital Signs: Last Vital Signs Temp 100.8 F H 11/26/22 20:38 Pulse 73 11/26/22 20:02 Resp 29 H 11/26/22 20:38 BP 117/43 L 11/26/22 20:38 Pulse Ox 92 11/26/22 20:38 O2 Del Method Room Air 11/26/22 20:38 Oxygen Flow Rate 2 11/26/22 17:10 BMI result Body Mass Index 47.8 Appearance: Alert. Oriented X3. No acute distress. Eyes: Pupils equal, round and reactive to light. ENT: Pharynx normal. Neck: Normal inspection. Neck supple. CVS: Normal heart rate and rhythm. Pulses normal. Respiratory: No respiratory distress - mild tachypnea. Breath sounds very diminished in both bases Abdomen: Soft and non-tender. Skin: Skin warm and dry. Normal skin color. Normal skin turgor. diffuse areas of ecchymosis on extremities - R hand most pronounced with boggy edema Extremities: 1+ bilateral lower extremity edema. No calf ttp Neuro: Oriented X 3. No motor deficit. No sensory deficit. Course Course Course Narrative: at this time infection suspected has fever of 100.8 828pm UA hx of ESBL +meropenem ordered Medications Administered Generic Name Dose Route Start Last Admin Trade Name Freq PRN Reason Stop Dose Admin Meropenem 1 gm/ Sodium 100 mls @ 200 mls/hr 11/26/22 21:00 11/26/22 21:08 Chloride IV 11/26/22 21:29 200 mls/hr ONCE ONE Administration Discontinued Medications Generic Name Dose Route Start Last Admin Trade Name Freq PRN Reason Stop Dose Admin Acetaminophen 650 mg 11/26/22 20:27 11/26/22 21:08 Acetaminophen 325 Mg Tablet PO 11/26/22 20:28 650 mg ONCE ONE Administration Albuterol Sulfate 2.5 mg 11/26/22 19:32 11/26/22 19:57 Albuterol Sulfate (0.083%) 2.5 Mg/3 Ml Vial.Neb INHALE 11/26/22 19:33 2.5 mg ONCE ONE Administration Medical Decision Making Medical Decision Making MDM Narrative: 72 yo female with hx of CKD, CHF, CLL, COPD, DM, LATONYA, heart block, obesity just admitted here 10/28 to 11/23 for LEO on CKD heart block and CHF here with c/o productive cough, sputum and increased dyspnea at this time will obtain EKG, CXR, basic labs and give treatment - possible CHF, anemia, lab abnormality, COPD - possible admission unfortunately just had prolonged stay and was at home for 3 days only. Differential Diagnosis Differential Diagnoses: The differential diagnosis associated with the prese ntation includes CHF, COPD Admission/Observation Consideration of admission/observation: Escalation of care including admission /observation considered needs admission given hx of ESBL + UA Consult Healthcare Provider Management of the patient was discussed with: Hospitalist agrees to admit Lab Data MDM Lab Attestation statement: I reviewed the patient's lab results. 11/26/22 20:17 11/26/22 20:17 Labs: Lab Results 11/26/22 11/26/22 11/26/22 Range/Units 20:17 20:17 20:17 WBC 15.6 H (4.8-10.8) X10*3/uL RBC 3.45 L (4.20-5.50) X10*6/uL Hgb 8.8 L (12.0-16.0) g/dl Hct 28.6 L (37.0-47.0) % MCV 82.9 (80.0-98.0) fL MCH 25.5 L (27.0-33.0) pg MCHC 30.8 L (31.0-35.0) g/dl RDW 17.2 H (11.0-16.0) % Plt Count 227 D (160-400) X10*3/uL MPV 11.7 (9.4-12.3) fL Immature Gran % (Auto) 1.0 H (0.0-0.4) % Neut % (Auto) 79.7 H (45-73) % Lymph % (Auto) 7.2 L (20-40) % [place] % (Auto) 10.4 (2-11) % Eos % (Auto) 1.4 (0-4) % Baso % (Auto) 0.3 (0-2) % Lymph # (Auto) 1.1 L (1.2-4.9) X10*3/uL [place] # (Auto) 1.6 H (0.1-1.2) X10*3/uL Eos # (Auto) 0.2 (0.0-0.4) X10*3/uL Baso # (Auto) 0.0 (0.0-0.2) X10*3/uL Abs Immat Gran (auto) 0.16 H (0.00-0.03) X10*3/uL Absolute Neuts (auto) 12.5 H (2.0-8.3) x10*3/uL Absolute Nucleated RBC 0.000 (0.0-0.012) X10*3/uL Nucleated RBC % (auto) 0.0 (0.0-0.2) /100WBC PT (11.1-13.3) SEC INR (0.9-1.1) Sodium 137 (135-145) mmol/L Potassium 5.0 D (3.3-5.1) mmol/L Chloride 101 (96-108) mmol/L Carbon Dioxide 26 (22-29) mmol/L Anion Gap 15 (12-20) BUN 52 H (9-16) mg/dL Creatinine 1.93 H (0.5-1.4) mg/dL Estim Creat Clear Calc 33.9 Estimated GFR 26 Random Glucose 149 H (60-115) mg/dL Lactic Acid (0.5-2.0) mmol/L Calcium 9.4 D (8.4-10.2) mg/dL Magnesium 2.1 (1.6-2.6) mg/dL Total Bilirubin 0.7 (0.0-1.0) mg/dL Direct Bilirubin 0.3 (0.0-0.5) mg/dL AST 9 (5-31) U/L ALT 12 (0-31) U/L Alkaline Phosphatase 68 (39-117) U/L Troponin I High Sens (<3.5-17.0) ng/L B-Natriuretic Peptide 1132 H (<100) pg/mL Total Protein 6.3 L (6.5-8.0) g/dL Albumin 3.1 L (3.5-5.0) g/dL Urine Color Urine Appearance Urine pH (5.0-9.0) Ur Specific [place] (1.005-1.025) Urine Protein (Neg-Trace) mg/dL Urine Glucose (UA) (Negative) mg/dL Urine Ketones (Negative) mg/dL Urine Blood (Negative) Urine Nitrite (Negative) Ur Leukocyte Esterase (Negative) Urine RBC (0-2) /HPF Urine WBC (0-5) /HPF Ur Squamous Epith Cells (0-2) /HPF Urine Bacteria (None Seen) Hyaline Casts (0-2) /LPF 11/26/22 11/26/22 11/26/22 Range/Units 20:17 20:17 20:18 WBC (4.8-10.8) X10*3/uL RBC (4.20-5.50) X10*6/uL Hgb (12.0-16.0) g/dl Hct (37.0-47.0) % MCV (80.0-98.0) fL MCH (27.0-33.0) pg MCHC (31.0-35.0) g/dl RDW (11.0-16.0) % Plt Count (160-400) X10*3/uL MPV (9.4-12.3) fL Immature Gran % (Auto) (0.0-0.4) % Neut % (Auto) (45-73) % Lymph % (Auto) (20-40) % [place] % (Auto) (2-11) % Eos % (Auto) (0-4) % Baso % (Auto) (0-2) % Lymph # (Auto) (1.2-4.9) X10*3/uL [place] # (Auto) (0.1-1.2) X10*3/uL Eos # (Auto) (0.0-0.4) X10*3/uL Baso # (Auto) (0.0-0.2) X10*3/uL Abs Immat Gran (auto) (0.00-0.03) X10*3/uL Absolute Neuts (auto) (2.0-8.3) x10*3/uL Absolute Nucleated RBC (0.0-0.012) X10*3/uL Nucleated RBC % (auto) (0.0-0.2) /100WBC PT 13.6 H (11.1-13.3) SEC INR 1.1 (0.9-1.1) Sodium (135-145) mmol/L Potassium (3.3-5.1) mmol/L Chloride (96-108) mmol/L Carbon Dioxide (22-29) mmol/L Anion Gap (12-20) BUN (9-16) mg/dL Creatinine (0.5-1.4) mg/dL Estim Creat Clear Calc Estimated GFR Random Glucose (60-115) mg/dL Lactic Acid 1.1 (0.5-2.0) mmol/L Calcium (8.4-10.2) mg/dL Magnesium (1.6-2.6) mg/dL Total Bilirubin (0.0-1.0) mg/dL Direct Bilirubin (0.0-0.5) mg/dL AST (5-31) U/L ALT (0-31) U/L Alkaline Phosphatase (39-117) U/L Troponin I High Sens 49.0 H (<3.5-17.0) ng/L B-Natriuretic Peptide (<100) pg/mL Total Protein (6.5-8.0) g/dL Albumin (3.5-5.0) g/dL Urine Color Urine Appearance Urine pH (5.0-9.0) Ur Specific [place] (1.005-1.025) Urine Protein (Neg-Trace) mg/dL Urine Glucose (UA) (Negative) mg/dL Urine Ketones (Negative) mg/dL Urine Blood (Negative) Urine Nitrite (Negative) Ur Leukocyte Esterase (Negative) Urine RBC (0-2) /HPF Urine WBC (0-5) /HPF Ur Squamous Epith Cells (0-2) /HPF Urine Bacteria (None Seen) Hyaline Casts (0-2) /LPF 11/26/22 Range/Units 20:45 WBC (4.8-10.8) X10*3/uL RBC (4.20-5.50) X10*6/uL Hgb (12.0-16.0) g/dl Hct (37.0-47.0) % MCV (80.0-98.0) fL MCH (27.0-33.0) pg MCHC (31.0-35.0) g/dl RDW (11.0-16.0) % Plt Count (160-400) X10*3/uL MPV (9.4-12.3) fL Immature Gran % (Auto) (0.0-0.4) % Neut % (Auto) (45-73) % Lymph % (Auto) (20-40) % [place] % (Auto) (2-11) % Eos % (Auto) (0-4) % Baso % (Auto) (0-2) % Lymph # (Auto) (1.2-4.9) X10*3/uL [place] # (Auto) (0.1-1.2) X10*3/uL Eos # (Auto) (0.0-0.4) X10*3/uL Baso # (Auto) (0.0-0.2) X10*3/uL Abs Immat Gran (auto) (0.00-0.03) X10*3/uL Absolute Neuts (auto) (2.0-8.3) x10*3/uL Absolute Nucleated RBC (0.0-0.012) X10*3/uL Nucleated RBC % (auto) (0.0-0.2) /100WBC PT (11.1-13.3) SEC INR (0.9-1.1) Sodium (135-145) mmol/L Potassium (3.3-5.1) mmol/L Chloride (96-108) mmol/L Carbon Dioxide (22-29) mmol/L Anion Gap (12-20) BUN (9-16) mg/dL Creatinine (0.5-1.4) mg/dL Estim Creat Clear Calc Estimated GFR Random Glucose (60-115) mg/dL Lactic Acid (0.5-2.0) mmol/L Calcium (8.4-10.2) mg/dL Magnesium (1.6-2.6) mg/dL Total Bilirubin (0.0-1.0) mg/dL Direct Bilirubin (0.0-0.5) mg/dL AST (5-31) U/L ALT (0-31) U/L Alkaline Phosphatase (39-117) U/L Troponin I High Sens (<3.5-17.0) ng/L B-Natriuretic Peptide (<100) pg/mL Total Protein (6.5-8.0) g/dL Albumin (3.5-5.0) g/dL Urine Color Yellow Urine Appearance Turbid Urine pH 6.5 (5.0-9.0) Ur Specific [place] 1.010 (1.005-1.025) Urine Protein 100 (2+) H (Neg-Trace) mg/dL Urine Glucose (UA) Negative (Negative) mg/dL Urine Ketones Negative (Negative) mg/dL Urine Blood Moderate (2+) H (Negative) Urine Nitrite Positive H (Negative) Ur Leukocyte Esterase Large (3+) H (Negative) Urine RBC 11-20 H (0-2) /HPF Urine WBC >50 H (0-5) /HPF Ur Squamous Epith Cells 0-2 (0-2) /HPF Urine Bacteria 4+ (None Seen) Hyaline Casts 0-2 (0-2) /LPF Independent Interpretation I performed an independent interpretation of an: EKG and Plain X-Ray Interpretation: Rate: 75 Rhythm: NSR [place]: normal Normal P waves. Normal KAPIL. Normal QRS complex slightly widened ST T wave : no BRANDO, inverted t wave III qTC: normal prior studies: n oacute ischemia The study has been interpreted contemporaneously by me. . Radiology Impression Discussion of test interpretation with radiology: I have reviewed the radiologist's reading. Independent Historian Clinical information obtained from an independent historian. History obtained from or confirmed by: Other (daughter) External Record Review External record reviewed: Inpatient record Critical Care Time Critical Care Time Critical Care Time: Yes Total Critical Care Time: 31 Attestation: review of records, IVF, empric antibiotics, treatments I attest to this time spent taking care of the patient Discharge Plan Discharge Clinical Impression: Acute kidney injury superimposed on chronic kidney disease, Acute UTI, Acute f ebrile illness Elevated WBC count Qualifiers: Leukocytosis type: unspecified Qualified Code(s): D72.829 - Elevated white blood cell count, unspecified Patient Disposition: Admitted As Inpatient
[2022-11-26] MEDS: Albuterol Sulfate (0.083%) 2.5 MG/3 ML VIAL.NEB INHALE (19:57)
[2022-11-26 20:38] LABS: Basophils Percent Auto 0.3 % (0-2); Eosinophils Absolute Auto 0.2 X10*3/uL (0.0-0.4); Eosinophils Percent Auto 1.4 % (0-4); Hematocrit 28.6 % (37.0-47.0); Hemoglobin 8.8 g/dl (12.0-16.0); Imm Gran Abs Auto 0.16 X10*3/uL (0.00-0.03); Lymphocytes Absolute Auto 1.1 X10*3/uL (1.2-4.9); Lymphocytes Percent Auto 7.2 % (20-40); Mean Corpuscular HGB Conc 30.8 g/dl (31.0-35.0); Mean Corpuscular Hemoglobin 25.5 pg (27.0-33.0); Mean Corpuscular Volume 82.9 fL (80.0-98.0); Mean Platelet Volume 11.7 fL (9.4-12.3); Monocytes Absolute Auto 1.6 X10*3/uL (0.1-1.2); Monocytes Percent Auto 10.4 % (2-11); Neutrophils Absolute Auto 12.5 x10*3/uL (2.0-8.3); Neutrophils Percent Auto 79.7 % (45-73); Platelet Count 227 X10*3/uL (160-400); Red Blood Count 3.45 X10*6/uL (4.20-5.50); Red Cell Distribution Width 17.2 % (11.0-16.0); White Blood Count 15.6 X10*3/uL (4.8-10.8)
--- NOTE | 2022-11-26 20:39 | MHC.EDTECH ---
EKG and vitals were done, Patient has a rectal temp of 100.8 Dr. Sutherland was made aware. Labs and blood cultures were obtained and sent to lab. Patient was incont. of an extra large amount of urine, patient was cleaned and repositioned.RN straight cathed pt to obtain a UACC. This tech applied a pure wick to keep patient dry and clean.
[2022-11-26 20:47] LABS: MANUAL DIFF FLAG NO
[2022-11-26 20:47] LABS: Lactic Acid 1.1 mmol/L (0.5-2.0)
--- NOTE | 2022-11-26 20:47 | MHC.EDTECH ---
This tech made BALJEET Sexton aware of a wound to pts right buttocks and left forearm.
[2022-11-26 20:48] LABS: INTERNATIONAL NORM RATIO 1.1 (0.9-1.1); Prothrombin Time 13.6 SEC (11.1-13.3)
[2022-11-26 20:51] LABS: Alanine Aminotransferase 12 U/L (0-31); Albumin Level 3.1 g/dL (3.5-5.0); Alkaline Phosphatase 68 U/L (39-117); Anion Gap 15 (12-20); Aspartate Amino Transferase 9 U/L (5-31); Bilirubin Direct 0.3 mg/dL (0.0-0.5); Bilirubin Total 0.7 mg/dL (0.0-1.0); Blood Urea Nitrogen 52 mg/dL (9-16); Calcium 9.4 mg/dL (8.4-10.2); Carbon Dioxide 26 mmol/L (22-29); Chloride 101 mmol/L (96-108); Creatinine Clr Calc Pharmacy 33.9; Estimated Glomerular Filt Rate 26; Glucose Random 149 mg/dL (60-115); Magnesium 2.1 mg/dL (1.6-2.6); Sodium 137 mmol/L (135-145); Total Protein 6.3 g/dL (6.5-8.0)
[2022-11-26 20:54] LABS: Appearance Urine Turbid; Color Urine Yellow; Glucose Urine UA Negative (Negative); Leukocyte Esterase Urine Large (3+) (Negative); Nitrite Urine Positive (Negative); PH 6.5 (5.0-9.0); UMIC TRIGGER UACC YES; Urine Blood Moderate (2+) (Negative); Urine Ketones Negative (Negative); Urine Protein 100 (2+) mg/dL (Neg-Trace)
[2022-11-26 20:56] LABS: B Type Natriuretic Peptide 1132 pg/mL (<100)
[2022-11-26] MEDS: Acetaminophen 325 MG TABLET 650 MG PO (21:08)
[2022-11-26 21:10] LABS: Bacteria Urine 4+ (None Seen); Hyaline Casts Urine 0-2 /LPF (0-2); Squamous Epithelial Cell Urine 0-2 /HPF (0-2); UACC Culture Trigger YES; WBC Urine >50 /HPF (0-5)
[2022-11-26] MEDS: 0.9 % Sodium Chloride 250 ML IV (21:24)
--- NOTE | 2022-11-26 23:33 | MHC.EDTECH ---
Patient is non ambulatory.
--- NOTE | 2022-11-26 23:40 | MHC.EDTECH ---
Hourly rounds and vitals completed, patient was repositioned and placed on right side, Urine output 300cc. Pure wick is in place and patient is clean and dry. Call morocho within reach
[2022-11-27] VITALS (12 sets, daily range): BP systolic 106–123; BP diastolic 38–60; PULSE 66–95; RESP 16–26; TEMP 36.6–37.2; O2SAT 94–100; BMI 45.5
[2022-11-27] MEDS: Bumetanide 1 MG TABLET 2 MG PO ×2 (00:15→07:38)
[2022-11-27] MEDS: Heparin Sodium,Porcine 5,000 UNIT/ML VIAL 5000 UNIT SUBCUT ×2 (00:16→09:58)
--- NOTE | 2022-11-27 01:07 | MHC.EDTECH ---
Vitals taken and are 121/38 RN Carlie was made aware ,patient is resting comfortably at this time.call morocho is within reach
--- NOTE | 2022-11-27 01:55 | MHC.EDTECH ---
Patient was placed in hospital bed for comfort,Hourly rounds completed and vitals were taken and blood pressure i
--- NOTE | 2022-11-27 02:02 | MHC.EDTECH ---
Hourly rounds and vitals were completed and BP is 106/39 RN Carlie made aware. Patient was placed in hospital bed for comfort and was repositioned. Pure wick in place and patient is clean and dry. Patient drank 120cc of water. Call morocho within reach.
--- NOTE | 2022-11-27 03:53 | MHC.EDTECH ---
Hourly rounds and vitals completed, patient was repositioned and is resting at this time. Call morocho within reach
[2022-11-27] MEDS: 0.9 % Sodium Chloride Flush 3 ML SYRINGE IVFLUSH ×3 (03:57→15:52)
--- NOTE | 2022-11-27 05:32 | MHC.EDTECH ---
Hourly rounds and vitals completed. Patient urinated 300cc and Vannessa-care was giving, pure wick and bed linen was changed. Patient was giving a back rub with lotion, and was repositioned to left side with multiple pillows for comfort. Patient is clean and dry at this time and patient drank a can of diet josh marcelle. Call morocho is within reach.
--- NOTE | 2022-11-27 06:40 | PC.NURSE ---
Delayed entry, Sepsis protocol initiated. labs drawn by battery technician. Antibiotics administered. 250 mls of fluids ordered by provider as PT has a hx of CHF, is not hypotensive and lactic was in normal range. Medications administered as per JUN. Stage 2 pressure wound on left and right buttocks and skin tear on left forearm clean and bandage applied. Barrier cream applied. to buttocks and vaginal area.
--- NOTE | 2022-11-27 06:40 | PM.IMHP ---
History of Present Illness Date of Service: 11/26/22 Chief Complaint: SOB, cough 72-year-old female with past medical history of CKD, CHF, CLL, COPD, DM, LATONYA, heart block, obesity, recently discharged from the hospital after an extensive stay for acute on chronic respiratory failure status post intubation, as well as diabetic drip, patient was discharged from the hospital to home on 11/26, with complaints of increased shortness of breath and cough. Patient's daughter reports that she noticed her mother being significantly short of breath, has increased cough and sputum production and appeared more swollen. Daughter checked her oxygen at home and she was satting 70%. Of note patient was discharged home on her Bumex of 2 mg p.o. b.i.d.. On arrival to the ED patient noted to be febrile with a temp of a 100.8 degrees, tachypneic with a respiratory rate of 29, satting 91% on room air Labs are significant for WBC count of 15.6 which is chronically elevated, hemoglobin of 8.8 which is around her baseline, BNP elevated at 1132 which is similar to her recent, creatinine of 1.93 which is higher than her baseline of 1.36 on discharge UA found to be positive for leukocyte Estrace, nitrites, WBC as well as 4+ bacteria Patient has history of ESBL Patient started on IV diuretics, antibiotics and will be admitted for further management Review of Systems Review of Systems: Yes all other systems are reviewed and are negative COUNTS INCLUDE 234 BEDS AT THE [facility] Medical History Acute respiratory failure Bradycardia Chronic lymphocytic leukemia (CLL), B-cell CKD (chronic kidney disease) CLL (chronic lymphocytic leukemia) Congestive heart failure Congestive heart failure COVID COVID-19 Diabetes mellitus with insulin therapy Dyspnea Essential hypertension HLD (hyperlipidemia) HTN (hypertension) Hypothyroidism Hypoxia Infection with ESBL Klebsiella oxytoca Influenza A Klebsiella pneumonia Lower extremity edema Lymphadenopathy, mediastinal Migraine Obesity Pleural effusion Pleural effusion Pneumonia due to COVID-19 virus Pseudotumor cerebri PVD (peripheral vascular disease) Suspected deep tissue injury Family History Mother Heart attack, Onset Age: 92 Father Heart attack, Onset Age: 66 Other Diabetes Surgical History H/O cataract extraction H/O hysterectomy for benign disease Hx of cholecystectomy S/P appendectomy Social History Household Members: Family Household Members Other:: patient came from a rehab facility, been there since dec Housing: House Do you presently have visiting nurse or other home services: Yes Alcohol intake: never Patient Tobacco Use Status: Former Tobacco user Smoked in Last 30 Days: No Use of substances other than those prescribed or required for medical reasons: No Advance Directives: Yes Advance Directives on File: Yes Advance Directives Date on File: 09/26/20 service: No Current occupational status: disabled Meds Allergies Allergy/AdvReac Type Severity Reaction Status Date / Time oxycodone [From Percocet] Allergy Intermediate Rash Verified 04/27/22 11:42 lisinopril Allergy Unknown Unknown Verified 04/27/22 11:42 Active Medications: Current Medications Acetaminophen (Acetaminophen 325 Mg Tablet) 650 mg PO Q6H PRN PRN Reason: Pain, Mild (Pain Scale 1-3) Bumetanide (Bumetanide 1 Mg Tablet) 2 mg PO BID@0800,1700 [facility]; Protocol Last Admin: 11/27/22 00:15 Dose: 2 mg Docusate Sodium (Docusate Sodium 100 Mg Capsule) 100 mg PO DAILY PRN PRN Reason: Constipation Heparin Sodium (Porcine) (Heparin Sodium,Porcine 5,000 Unit/Ml Vial) 5,000 unit SUBCUT Q12H [facility] Last Admin: 11/27/22 00:16 Dose: 5,000 unit Meropenem 1 gm/ Sodium (Chloride) 100 mls @ 200 mls/hr IV Q12H [facility] Pt Own ( Acalabrutinib Maleate [Calquence ( Acalabrutinib Mal)] 100 Mg Tab 100 mg PO BID [facility] Last Admin: 11/27/22 00:16 Dose: 100 mg Ondansetron HCl (Ondansetron Hcl 4 Mg/2 Ml Vial) 4 mg IVPUSH Q8H PRN PRN Reason: Nausea and Vomiting Sodium Chloride (0.9 % Sodium Chloride Flush 3 Ml Syringe) 3 ml IVFLUSH QSHIFT [facility] Last Admin: 11/27/22 03:57 Dose: 3 ml Home Medications Medication Instructions Recorded Confirmed Last Taken Type chlordiazepoxide HCl 10 mg capsule 10 mg PO BEDTIME 10/08/21 11/26/22 Unknown History citalopram 20 mg tablet 40 mg PO DAILY 10/08/21 11/26/22 Unknown History insulin lispro protamine-lispro 0 unit subcut QIDACHS 10/08/21 11/26/22 Unknown History 100 unit/mL (75-25) subcutaneous pen levothyroxine 175 mcg tablet 175 mcg PO DAILY@0600 10/08/21 11/26/22 Unknown History simvastatin 20 mg tablet 20 mg PO BEDTIME 10/08/21 11/26/22 Unknown History sitagliptin phosphate 100 mg 100 mg PO DAILY 10/08/21 11/26/22 Unknown History tablet (Januvia) latanoprost 0.005 % eye drops 1 drp ophthalmic (eye) BEDTIME 11/20/21 11/26/22 Unknown History albuterol sulfate 0.63 mg/3 mL 0.63 mg inhalation Q2H PRN Wheezing 02/16/22 11/26/22 Unknown History solution for nebulization brinzolamide 1 %-brimonidine 0.2 % 1 drp ophthalmic-Right BID 02/16/22 11/26/22 Unknown History eye drops,suspension (Simbrinza) zlnuonexme-ldmrcihwcddzd-hudlktku 1 tab PO Q6H PRN Headache 02/16/22 11/26/22 Unknown History 50 mg-325 mg-40 mg tablet coenzyme Q10 100 mg capsule 150 mg PO DAILY 02/16/22 11/26/22 Unknown History (CoQ-10) insulin glargine 100 unit/mL (3 16 unit subcut BID 02/16/22 11/26/22 Unknown History mL) subcutaneous pen (Lantus Solostar U-100 Insulin) melatonin 5 mg tablet 5 mg PO BEDTIME 02/16/22 11/26/22 Unknown History metoprolol tartrate 50 mg tablet 50 mg PO BID 02/16/22 11/26/22 Unknown History prednisolone acetate 1 % eye 1 drp ophthalmic-Right DAILY 02/16/22 11/26/22 Unknown History drops,suspension sennosides 8.6 mg tablet (senna) 17.2 mg PO DAILY PRN Constipation 02/16/22 11/26/22 Unknown History timolol maleate 0.5 % eye drops 1 drp ophthalmic-Right BID 02/16/22 11/26/22 Unknown History carboxymethylcellulose sodium 1 % 1 drp ophthalmic (eye) BID 03/15/22 11/26/22 Unknown History eye drops (Artificial Tears (carboxymethylcellulose)) budesonide-formoterol HFA 160 2 puff inhalation BID 04/27/22 11/26/22 Unknown History mcg-4.5 mcg/actuation aerosol inhaler (Symbicort) umeclidinium 62.5 mcg/actuation 1 inh inhalation DAILY 04/27/22 11/26/22 Unknown History blister powder for inhalation (Incruse Ellipta) acetaminophen 325 mg tablet 650 mg PO Q4H PRN Pain (Scale 06/08/22 11/26/22 Unknown History (Tylenol) Score 4-6) amlodipine 10 mg tablet 10 mg PO DAILY high blood pressure 06/08/22 11/26/22 Unknown History guaifenesin 600 mg tablet, 600 mg PO BID cough 06/08/22 11/26/22 Unknown History extended release 12 hr polyethylene glycol 3350 17 17 g PO BID 06/08/22 11/26/22 Unknown History gram/dose oral powder (Miralax) sodium phosphates 19 gram-7 118 ml MN BEDTIME PRN Constipation 06/08/22 11/26/22 Unknown History gram/118 mL enema (Fleet Enema) levalbuterol HCl 1.25 mg/3 mL 1.25 mg inhalation QID 07/30/22 11/26/22 Unknown History solution for nebulization biotin 5 mg tablet 5 mg PO DAILY 08/11/22 11/26/22 Unknown History bisacodyl 10 mg rectal suppository 10 mg MN DAILY PRN Constipation 08/11/22 11/26/22 Unknown History guaifenesin 100 mg/5 mL oral liquid 200 mg PO Q4H PRN Pain (Scale 08/11/22 11/26/22 Unknown History Score 1-3) hydroxychloroquine 200 mg tablet 200 mg PO BID 08/11/22 11/26/22 Unknown History hydroxyzine HCl 25 mg tablet 25 mg PO DAILY 08/11/22 11/26/22 Unknown History lorazepam 0.5 mg tablet 0.5 mg PO BID PRN Anxiety 08/11/22 11/26/22 Unknown History magnesium 200 mg tablet 400 mg PO DAILY 08/11/22 11/26/22 Unknown History riboflavin (vitamin B2) 400 mg 400 mg PO DAILY 08/11/22 11/26/22 Unknown History tablet diphenhydramine-zinc acetate 2 1 appl topical BID 10/27/22 11/26/22 Unknown History %-0.1 % topical cream nystatin 100,000 unit/gram topical 1 appl topical BID 10/27/22 11/26/22 Unknown History powder prednisone 1 mg tablet 6 mg PO DAILY 10/27/22 11/26/22 Unknown History sennosides 8.6 mg-docusate sodium 1 tab-cap PO DAILY 10/27/22 11/26/22 Unknown History 50 mg tablet (Senna-S) Physical Exam Vital Signs and Narrative: Vital Signs: Last Vital Signs Temp 97.9 F 11/27/22 05:31 Pulse 75 11/27/22 05:31 Resp 20 11/27/22 05:31 BP 121/38 L 11/27/22 05:31 Pulse Ox 100 11/27/22 05:31 O2 Del Method Room Air 11/27/22 05:31 Oxygen Flow Rate 2 11/26/22 17:10 BMI result Body Mass Index 47.8 Const: General: cooperative and no acute distress Eyes: General: appearance normal, both eyes and all related structures Resp: Other: Diminished breath sounds Effort & Inspection: normal respiratory effort Cardio: Rate: regular rate Rhythm: regular rhythm GI: Palpation (GI): Soft to palpation Auscultation: normal bowel sounds Skin: Other: Changes chronic lymphedema, slight erythema, no warmth or tenderness, 1+ pitting edema Neuro: Cognition (Neuro): normal cognition Extrem: General: Yes normal to inspection and Yes no pedal edema Results Labs 11/26/22 20:17 11/26/22 20:17 Labs: Laboratory Results - last 24 hr 11/26/22 11/26/22 11/26/22 20:17 20:17 20:17 MCV 82.9 MCH 25.5 L MCHC 30.8 L RDW 17.2 H Plt Count 227 D MPV 11.7 Immature Gran % (Auto) 1.0 H Neut % (Auto) 79.7 H Lymph % (Auto) 7.[address] [facility] % (Auto) 10.4 Eos % (Auto) 1.4 Baso % (Auto) 0.3 Lymph # (Auto) 1.[address] [facility] # (Auto) 1.6 H Eos # (Auto) 0.2 Baso # (Auto) 0.0 Abs Immat Gran (auto) 0.16 H Absolute Neuts (auto) 12.5 H Absolute Nucleated RBC 0.000 Nucleated RBC % (auto) 0.0 PT INR Anion Gap 15 Estim Creat Clear Calc 33.9 Estimated GFR 26 Random Glucose 149 H Lactic Acid Calcium 9.4 D Magnesium 2.1 Total Bilirubin 0.7 Direct Bilirubin 0.3 AST 9 ALT 12 Alkaline Phosphatase 68 B-Natriuretic Peptide 1132 H Total Protein 6.3 L Albumin 3.1 L Urine Color Urine Appearance Urine pH Ur Specific [place] Urine Protein Urine Glucose (UA) Urine Ketones Urine Blood Urine Nitrite Ur Leukocyte Esterase Urine RBC Urine WBC Ur Squamous Epith Cells Urine Bacteria Hyaline Casts 11/26/22 11/26/22 11/26/22 20:17 20:18 20:45 MCV MCH MCHC RDW Plt Count MPV Immature Gran % (Auto) Neut % (Auto) Lymph % (Auto) [facility] % (Auto) Eos % (Auto) Baso % (Auto) Lymph # (Auto) [facility] [facility] # (Auto) Eos # (Auto) Baso # (Auto) Abs Immat Gran (auto) Absolute Neuts (auto) Absolute Nucleated RBC Nucleated RBC % (auto) PT 13.6 H INR 1.1 Anion Gap Estim Creat Clear Calc Estimated GFR Random Glucose Lactic Acid 1.1 Calcium Magnesium Total Bilirubin Direct Bilirubin AST ALT Alkaline Phosphatase B-Natriuretic Peptide Total Protein Albumin Urine Color Yellow Urine Appearance Turbid Urine pH 6.5 Ur Specific [place] 1.010 Urine Protein 100 (2+) H Urine Glucose (UA) Negative Urine Ketones Negative Urine Blood Moderate (2+) H Urine Nitrite Positive H Ur Leukocyte Esterase Large (3+) H Urine RBC 11-20 H Urine WBC >50 H Ur Squamous Epith Cells 0-2 Urine Bacteria 4+ Hyaline Casts 0-2 Imaging Radiologist's Impressions: Impressions Chest X-Ray 11/26/22 19:52 IMPRESSION: Central pulmonary vascular congestion similar prior chest x-ray 11/06/2023. Assessment and Plan (1) Acute kidney injury superimposed on chronic kidney disease: Status: Acute (2) Acute UTI: Status: Acute (3) Acute febrile illness: Status: Acute (4) CHF exacerbation: Status: Acute Plan 72-year-old female with past medical history of COPD, CHF, REJI, comes into the hospital with complaints of shortness of breath found to have multiple abnormalities # LEO and CKD - possibly cardiorenal, has elevated BNP, - will treat with diabetics IV - nephrology consulted - follow BMP # acute hypoxic respiratory failure - possibly secondary to COPD/CHF exacerbation, has elevated BNP, lower extremity edema cough, sputum production - recently admitted and intubated secondary to above - will treat with diuretics, steroids, DuoNeb - strict I&O, low-sodium diet, daily weight - monitor respiratory status closely - O2 as needed # acute UTI - will treat with IV antibiotics - follow cultures # febrile illness - febrile on arrival to the ED - likely secondary to UTI - will treat with IV antibiotics - monitor vitals # diabetes - low-dose sliding scale insulin, diabetic diet, DVT prophylaxis: Heparin subQ Given need for IV antibiotics in the setting of UTI, LEO needing further evaluation, and acute hypoxic respiratory failure secondary to COPD/CHF patient require minimum 2 nights inpatient hospital stay for further management and monitoring Time Spent With Patient Time: Total time managing care of this patient today ____ minutes. Quality Stroke Does the patient have a stroke diagnosis?: No VTE Prior VTE?: No VTE Risk Level:: Medical - moderate - high VTE Device Contraindication: Treatment Not Indicated VTE Drug Contraindication: N/A - Med Ordered
[2022-11-27 06:49] LABS: Alanine Aminotransferase 8 U/L (0-31); Albumin Level 2.9 g/dL (3.5-5.0); Alkaline Phosphatase 64 U/L (39-117); Anion Gap 15 (12-20); Aspartate Amino Transferase 9 U/L (5-31); Bilirubin Total 0.7 mg/dL (0.0-1.0); Blood Urea Nitrogen 52 mg/dL (9-16); Calcium 8.9 mg/dL (8.4-10.2); Carbon Dioxide 23 mmol/L (22-29); Chloride 103 mmol/L (96-108); Creatinine Clr Calc Pharmacy 32.4; Estimated Glomerular Filt Rate 24; Glucose Random 109 mg/dL (60-115); Potassium 4.2 mmol/L (3.3-5.1); Sodium 137 mmol/L (135-145); Total Protein 5.9 g/dL (6.5-8.0)
[2022-11-27] MEDS: methylPREDNISolone Sod Succ 40 MG/ML VIAL IVPUSH ×2 (07:40→20:51)
--- NOTE | 2022-11-27 07:47 | PC.NURSE ---
pt a&ox3, vss, nsr on the pharmaceutical operator. pt verbalizing no pain. pt not demonstrating any signs of SOB - able to speak in full clear sentences w/o difficulty. respirations even and nonlabored. medication administered per provider order. tech feeding pt breakfast.
[2022-11-27] MEDS: vancomycin/NS 2,000 MG/500 ML PLAST..BAG 250 MG IV (08:41)
--- NOTE | 2022-11-27 08:43 | PC.NURSE ---
tech assisted with feeding pt breakfast. medication administered per provider order. call morocho placed within reach.
--- NOTE | 2022-11-27 09:35 | MHC.EDTECH ---
Pt bed linens changed and repositioned to right side. Resting quietly with call morocho within reach.
--- NOTE | 2022-11-27 09:36 | PC.NURSE ---
pharmacy called for missing med
--- NOTE | 2022-11-27 09:38 | PC.NURSE ---
pharmacy called - notified this rn that they will deliver medication shortly.
[2022-11-27 09:39] LABS: Basophils Absolute Auto 0.1 X10*3/uL (0.0-0.2); Basophils Percent Auto 0.5 % (0-2); Eosinophils Absolute Auto 0.4 X10*3/uL (0.0-0.4); Eosinophils Percent Auto 2.7 % (0-4); Hematocrit 27.6 % (37.0-47.0); Hemoglobin 8.4 g/dl (12.0-16.0); Imm Gran Abs Auto 0.18 X10*3/uL (0.00-0.03); Imm Gran Pct Auto 1.2 % (0.0-0.4); Lymphocytes Absolute Auto 0.8 X10*3/uL (1.2-4.9); Lymphocytes Percent Auto 4.9 % (20-40); Mean Corpuscular HGB Conc 30.4 g/dl (31.0-35.0); Mean Corpuscular Hemoglobin 25.6 pg (27.0-33.0); Mean Corpuscular Volume 84.1 fL (80.0-98.0); Mean Platelet Volume 11.9 fL (9.4-12.3); Monocytes Percent Auto 6.1 % (2-11); Neutrophils Absolute Auto 13.2 x10*3/uL (2.0-8.3); Neutrophils Percent Auto 84.6 % (45-73); Platelet Count 201 X10*3/uL (160-400); Red Blood Count 3.28 X10*6/uL (4.20-5.50); Red Cell Distribution Width 17.2 % (11.0-16.0); White Blood Count 15.6 X10*3/uL (4.8-10.8)
--- NOTE | 2022-11-27 09:56 | PC.NURSE ---
pt medicated per order
--- NOTE | 2022-11-27 10:07 | PHA.PROG ---
Admission Date/Time: November 26, 2022 22:26 Indication: RESPIRATORY Weight in k.47 kg Adjusted body weight in K.428 [place] body weight in K.4 Obesity Dosing Indication % IBW: 47.8 Serum Creatinine - Last 168 Hours 11/26/22 11/27/22 20:17 06:17 Creatinine 1.93 H 2.02 H Estimated CrCl and GFR - Last 168 Hours 11/26/22 11/27/22 20:17 06:17 Estim Creat Clear Calc 33.9 32.4 Estimated GFR 26 24 Vancomycin Loading Dose: 2000 MG Current Vancomycin Dosing Regimen: 750 Q24 Vancomycin Monitoring using AUC goal of 400 - 600 range with trough as surrogate marker: 572 Date and Time for next Vancomycin Level to be drawn: 11/29 @0600 Pharmacist Comments on Vancomycin Plan: PT IS OBESE, LOAD OF 2000 MG GIVEN IN ED. POOR RENAL FUNCTION SO CHECKING RANDOM LEVEL BEFORE 3RD DOSE WHILE CONTINUING TO CHECK SCR DAILY TO ENSURE NO MORE WORSENING OF KIDNEY FUNCTION DUE TO VANCOMYCIN DOSING. Vancomycin dosing will take advantage of [employer] as a clinical decision support tool that uses Bayesian modeling to calculate individual patient's pharmacokinetic parameters and forecast the patient's drug concentration time course with the target goal AUC 24 range of 400 - 600 mg/L/hr.
--- NOTE | 2022-11-27 10:14 | PC.NURSE ---
pt a&ox3, vss, nsr on the radiation monitor. medications still hung and running steve. pt had BM - tech and this rn changed pt appropraitely and applied barrier cream to lower sacral wound - pt tolerated movement/change well. tech currently changing purewick. call morocho placed within reach.
[2022-11-27 10:15] LABS: MANUAL DIFF FLAG NO
--- NOTE | 2022-11-27 11:55 | PM.CNNEP ---
History of Present Illness Reason for Consult Consult date: 11/29/22 Chief Complaint Chief complaint: CHF,LEO,UTI History of Present Illness Narrative: 72-year-old female with past medical history of CKD, CHF, CLL, COPD, DM, LATONYA, heart block, obesity, recently discharged from the hospital after an extensive stay for acute on chronic respiratory failure status post intubation, as well as diabetic drip, patient was discharged from the hospital to home on 11/26, with complaints of increased shortness of breath and cough.? Patient's daughter reports that she noticed her mother being significantly short of breath, has increased cough and sputum production and appeared more swollen.? Daughter checked her oxygen at home and she was satting 70%.? Of note patient was discharged home on her Bumex of 2 mg p.o. b.i.d..? [facility] Past Medical History Medical History Acute respiratory failure Bradycardia Chronic lymphocytic leukemia (CLL), B-cell CKD (chronic kidney disease) CLL (chronic lymphocytic leukemia) Congestive heart failure Congestive heart failure COVID COVID-19 Diabetes mellitus with insulin therapy Dyspnea Essential hypertension HLD (hyperlipidemia) HTN (hypertension) Hypothyroidism Hypoxia Infection with ESBL Klebsiella oxytoca Influenza A Klebsiella pneumonia Lower extremity edema Lymphadenopathy, mediastinal Migraine Obesity Pleural effusion Pleural effusion Pneumonia due to COVID-19 virus Pseudotumor cerebri PVD (peripheral vascular disease) Suspected deep tissue injury Family History Family History Mother Heart attack, Onset Age: 92 Father Heart attack, Onset Age: 66 Other Diabetes Surgical History Surgical History H/O cataract extraction H/O hysterectomy for benign disease Hx of cholecystectomy S/P appendectomy Social History Social History Household Members: Family Household Members Other:: patient came from a rehab facility, been there since dec Housing: House Do you presently have visiting nurse or other home services: Yes Alcohol intake: never Patient Tobacco Use Status: Former Tobacco user Second Hand Smoke Exposure: No Advance Directives Date on File: 09/26/20 service: No Current occupational status: disabled Meds Allergies Allergy/AdvReac Type Severity Reaction Status Date / Time oxycodone [From Percocet] Allergy Intermediate Rash Verified 04/27/22 11:42 lisinopril Allergy Unknown Unknown Verified 04/27/22 11:42 Active Medications: Current Medications Acetaminophen (Acetaminophen 325 Mg Tablet) 650 mg PO Q6H PRN PRN Reason: Pain, Mild (Pain Scale 1-3) Albuterol/Ipratropium (Albuterol/Iprat 2.5/0.5mg 3 Ml Ampul.Neb) 3 ml INHALE RQ4H PRN PRN Reason: Shortness of Breath/Wheezing Bumetanide (Bumetanide 1 Mg Tablet) 2 mg PO BID@0800,1700 [facility]; Protocol Last Admin: 11/27/22 07:38 Dose: 2 mg Docusate Sodium (Docusate Sodium 100 Mg Capsule) 100 mg PO DAILY PRN PRN Reason: Constipation Heparin Sodium (Porcine) (Heparin Sodium,Porcine 5,000 Unit/Ml Vial) 5,000 unit SUBCUT Q12H [facility] Last Admin: 11/27/22 09:58 Dose: 5,000 unit Meropenem 1 gm/ Sodium (Chloride) 100 mls @ 200 mls/hr IV Q12H [facility] Last Infusion: 11/27/22 08:14 Dose: Infused Vancomycin HCl 750 mg/ Sodium (Chloride) 265 mls @ 265 mls/hr IV Q24H [facility] Methylprednisolone Sodium Succinate (Methylprednisolone Sod Succ 40 Mg/Ml Vial) 40 mg IVPUSH Q12H [facility] Last Admin: 11/27/22 07:40 Dose: 40 mg Pt Own ( Acalabrutinib Maleate [Calquence ( Acalabrutinib Mal)] 100 Mg Tab 100 mg PO BID [facility] Last Admin: 11/27/22 09:55 Dose: 100 mg Ondansetron HCl (Ondansetron Hcl 4 Mg/2 Ml Vial) 4 mg IVPUSH Q8H PRN PRN Reason: Nausea and Vomiting Pharmacy Consult (Consult Rx Vancomycin Dosing) 1 each MISCELLANE DAILY PRN PRN Reason: Consult order Sodium Chloride (0.9 % Sodium Chloride Flush 3 Ml Syringe) 3 ml IVFLUSH QSHIFT [facility] Last Admin: 11/27/22 08:44 Dose: 3 ml Home Medications Medication Instructions Recorded Confirmed Last Taken Type chlordiazepoxide HCl 10 mg capsule 10 mg PO BEDTIME 10/08/21 11/26/22 Unknown History citalopram 20 mg tablet 40 mg PO DAILY 10/08/21 11/26/22 Unknown History insulin lispro protamine-lispro 0 unit subcut QIDACHS 10/08/21 11/26/22 Unknown History 100 unit/mL (75-25) subcutaneous pen levothyroxine 175 mcg tablet 175 mcg PO DAILY@0600 10/08/21 11/26/22 Unknown History simvastatin 20 mg tablet 20 mg PO BEDTIME 10/08/21 11/26/22 Unknown History sitagliptin phosphate 100 mg 100 mg PO DAILY 10/08/21 11/26/22 Unknown History tablet (Januvia) latanoprost 0.005 % eye drops 1 drp ophthalmic (eye) BEDTIME 11/20/21 11/26/22 Unknown History albuterol sulfate 0.63 mg/3 mL 0.63 mg inhalation Q2H PRN Wheezing 02/16/22 11/26/22 Unknown History solution for nebulization brinzolamide 1 %-brimonidine 0.2 % 1 drp ophthalmic-Right BID 02/16/22 11/26/22 Unknown History eye drops,suspension (Simbrinza) [id number] 1 tab PO Q6H PRN Headache 02/16/22 11/26/22 Unknown History 50 mg-325 mg-40 mg tablet coenzyme Q10 100 mg capsule 150 mg PO DAILY 02/16/22 11/26/22 Unknown History (CoQ-10) insulin glargine 100 unit/mL (3 16 unit subcut BID 02/16/22 11/26/22 Unknown History mL) subcutaneous pen (Lantus Solostar U-100 Insulin) melatonin 5 mg tablet 5 mg PO BEDTIME 02/16/22 11/26/22 Unknown History metoprolol tartrate 50 mg tablet 50 mg PO BID 02/16/22 11/26/22 Unknown History prednisolone acetate 1 % eye 1 drp ophthalmic-Right DAILY 02/16/22 11/26/22 Unknown History drops,suspension sennosides 8.6 mg tablet (senna) 17.2 mg PO DAILY PRN Constipation 02/16/22 11/26/22 Unknown History timolol maleate 0.5 % eye drops 1 drp ophthalmic-Right BID 02/16/22 11/26/22 Unknown History carboxymethylcellulose sodium 1 % 1 drp ophthalmic (eye) BID 03/15/22 11/26/22 Unknown History eye drops (Artificial Tears (carboxymethylcellulose)) budesonide-formoterol HFA 160 2 puff inhalation BID 04/27/22 11/26/22 Unknown History mcg-4.5 mcg/actuation aerosol inhaler (Symbicort) umeclidinium 62.5 mcg/actuation 1 inh inhalation DAILY 04/27/22 11/26/22 Unknown History blister powder for inhalation (Incruse Ellipta) acetaminophen 325 mg tablet 650 mg PO Q4H PRN Pain (Scale 06/08/22 11/26/22 Unknown History (Tylenol) Score 4-6) amlodipine 10 mg tablet 10 mg PO DAILY high blood pressure 06/08/22 11/26/22 Unknown History guaifenesin 600 mg tablet, 600 mg PO BID cough 06/08/22 11/26/22 Unknown History extended release 12 hr polyethylene glycol 3350 17 17 g PO BID 06/08/22 11/26/22 Unknown History gram/dose oral powder (Miralax) sodium phosphates 19 gram-7 118 ml MD BEDTIME PRN Constipation 06/08/22 11/26/22 Unknown History gram/118 mL enema (Fleet Enema) levalbuterol HCl 1.25 mg/3 mL 1.25 mg inhalation QID 07/30/22 11/26/22 Unknown History solution for nebulization biotin 5 mg tablet 5 mg PO DAILY 08/11/22 11/26/22 Unknown History bisacodyl 10 mg rectal suppository 10 mg MD DAILY PRN Constipation 08/11/22 11/26/22 Unknown History guaifenesin 100 mg/5 mL oral liquid 200 mg PO Q4H PRN Pain (Scale 08/11/22 11/26/22 Unknown History Score 1-3) hydroxychloroquine 200 mg tablet 200 mg PO BID 08/11/22 11/26/22 Unknown History hydroxyzine HCl 25 mg tablet 25 mg PO DAILY 08/11/22 11/26/22 Unknown History lorazepam 0.5 mg tablet 0.5 mg PO BID PRN Anxiety 08/11/22 11/26/22 Unknown History magnesium 200 mg tablet 400 mg PO DAILY 08/11/22 11/26/22 Unknown History riboflavin (vitamin B2) 400 mg 400 mg PO DAILY 08/11/22 11/26/22 Unknown History tablet diphenhydramine-zinc acetate 2 1 appl topical BID 10/27/22 11/26/22 Unknown History %-0.1 % topical cream nystatin 100,000 unit/gram topical 1 appl topical BID 10/27/22 11/26/22 Unknown History powder prednisone 1 mg tablet 6 mg PO DAILY 10/27/22 11/26/22 Unknown History sennosides 8.6 mg-docusate sodium 1 tab-cap PO DAILY 10/27/22 11/26/22 Unknown History 50 mg tablet (Senna-S) Physical Exam Vital Signs: Last Vital Signs Temp 98.1 F 11/27/22 07:37 Pulse 74 11/27/22 07:37 Resp 16 11/27/22 07:37 BP 122/57 L 11/27/22 07:37 Pulse Ox 97 11/27/22 07:37 O2 Del Method Room Air 11/27/22 07:37 Oxygen Flow Rate 2 11/26/22 17:10 BMI result Body Mass Index 45.5 Results Lab Results 11/27/22 09:29 11/27/22 06:17 Lab results: Chemistry 11/26/22 11/27/22 20:17 06:17 Sodium 137 137 Potassium 5.0 D 4.2 Carbon Dioxide 26 23 BUN 52 H 52 H Creatinine 1.93 H 2.02 H Calcium 9.4 D 8.9 Hematology 11/26/22 11/27/22 20:17 09:29 WBC 15.6 H 15.6 H Hgb 8.8 L 8.4 L Plt Count 227 D 201 Urinalysis 11/26/22 20:45 Urine Color Yellow Urine Appearance Turbid Urine pH 6.5 Ur Specific [place] 1.010 Urine Protein 100 (2+) H Urine Glucose (UA) Negative Urine Ketones Negative Urine Blood Moderate (2+) H Urine Nitrite Positive H Ur Leukocyte Esterase Large (3+) H Urine RBC 11-20 H Urine WBC >50 H Ur Squamous Epith Cells 0-2 Hyaline Casts 0-2 Assessment and Plan (1) Acute kidney injury superimposed on chronic kidney disease: Status: Acute Plan differential diagnosis would include ATN. Obstructive uropathy has to be ruled out in this woman with a history of obstruction. Suggest. Agree with diuretics. Obtain renal ultrasonogram. No indication for dialysis. Time Spent With Patient Time: Total time managing care of this patient today ____ minutes. Procedures Date of Service Date of Service: 11/29/22
--- NOTE | 2022-11-27 13:02 | PC.NURSE ---
pt a&ox3, vss, nsr on the playground monitor. pt verbalizing no pain steve. resting comfortably with the lights dimmed in the no apparent distress. call morocho placed within reach.
--- NOTE | 2022-11-27 13:57 | PC.NURSE ---
ultrasound called asking if pt was ready to go to ultrasound before being admitted - ultrasound aware that pt is all set.
--- NOTE | 2022-11-27 14:09 | P.PNIM_ITS ---
Subjective Subjective Date of Service: 11/27/22 Interval History: Feels better since admit. Discussed with niece at length. Satting acceptable on room air Review of Systems Denies chest pain Denies shortness of breath Denies nausea vomiting diarrhea Denies fever chills Physical Exam 2 Vital Signs: Vital Signs: Last Vital Signs Temp 98.4 F 11/27/22 13:02 Pulse 84 11/27/22 13:02 Resp 16 11/27/22 13:02 BP 111/53 L 11/27/22 13:02 Pulse Ox 96 11/27/22 13:02 O2 Del Method Room Air 11/27/22 13:02 Oxygen Flow Rate 2 11/26/22 17:10 BMI result Body Mass Index 45.5 Objective Data Active Medications Acetaminophen (Acetaminophen 325 Mg Tablet) 650 mg PO Q6H PRN PRN Reason: Pain, Mild (Pain Scale 1-3) Albuterol/Ipratropium (Albuterol/Iprat 2.5/0.5mg 3 Ml Ampul.Neb) 3 ml INHALE RQ4H PRN PRN Reason: Shortness of Breath/Wheezing Bumetanide (Bumetanide 1 Mg/4 Ml Vial) 2 mg IVPUSH BID@0900,1700 [facility] [place]; Protocol Docusate Sodium (Docusate Sodium 100 Mg Capsule) 100 mg PO DAILY PRN PRN Reason: Constipation Heparin Sodium (Porcine) (Heparin Sodium,Porcine 5,000 Unit/Ml Vial) 5,000 unit SUBCUT Q12H [facility] Last Admin: 11/27/22 09:58 Dose: 5,000 unit Documented By: CAPRI Meropenem 1 gm/ Sodium (Chloride) 100 mls @ 200 mls/hr IV Q12H [facility] [place] Last Infusion: 11/27/22 08:14 Dose: 0 mls/hr Documented By: YAAJIRA Vancomycin HCl 750 mg/ Sodium (Chloride) 265 mls @ 265 mls/hr IV Q24H [facility] Methylprednisolone Sodium Succinate (Methylprednisolone Sod Succ 40 Mg/Ml Vial) 40 mg IVPUSH Q12H [facility] [place] Last Admin: 11/27/22 07:40 Dose: 40 mg Documented By: YAJAIRA Pt Own ( Acalabrutinib Maleate [Calquence ( Acalabrutinib Mal)] 100 Mg Tab 100 mg PO BID [facility] Last Admin: 11/27/22 09:55 Dose: 100 mg Documented By: CAPRI Ondansetron HCl (Ondansetron Hcl 4 Mg/2 Ml Vial) 4 mg IVPUSH Q8H PRN PRN Reason: Nausea and Vomiting Pharmacy Consult (Consult Rx Vancomycin Dosing) 1 each MISCELLANE DAILY PRN PRN Reason: Consult order Sodium Chloride (0.9 % Sodium Chloride Flush 3 Ml Syringe) 3 ml IVFLUSH [facility] Last Admin: 11/27/22 08:44 Dose: 3 ml Documented By: YAJAIRA Labs 11/27/22 09:29 11/27/22 06:17 Labs: Laboratory Results - last 24 hr 11/26/22 11/26/22 11/26/22 20:17 20:17 20:17 MCV 82.9 MCH 25.5 L MCHC 30.8 L RDW 17.2 H Plt Count 227 D MPV 11.7 Immature Gran % (Auto) 1.0 H Neut % (Auto) 79.7 H Lymph % (Auto) 7.2 L [place] % (Auto) 10.4 Eos % (Auto) 1.4 Baso % (Auto) 0.3 Lymph # (Auto) 1.1 L [place] # (Auto) 1.6 H Eos # (Auto) 0.2 Baso # (Auto) 0.0 Abs Immat Gran (auto) 0.16 H Absolute Neuts (auto) 12.5 H Absolute Nucleated RBC 0.000 Nucleated RBC % (auto) 0.0 PT INR Anion Gap 15 Estim Creat Clear Calc 33.9 Estimated GFR 26 Random Glucose 149 H Lactic Acid Calcium 9.4 D Magnesium 2.1 Total Bilirubin 0.7 Direct Bilirubin 0.3 AST 9 ALT 12 Alkaline Phosphatase 68 B-Natriuretic Peptide 1132 H Total Protein 6.3 L Albumin 3.1 L Urine Color Urine Appearance Urine pH Ur Specific [place] Urine Protein Urine Glucose (UA) Urine Ketones Urine Blood Urine Nitrite Ur Leukocyte Esterase Urine RBC Urine WBC Ur Squamous Epith Cells Urine Bacteria Hyaline Casts 11/26/22 11/26/22 11/26/22 20:17 20:18 20:45 MCV MCH MCHC RDW Plt Count MPV Immature Gran % (Auto) Neut % (Auto) Lymph % (Auto) [place] % (Auto) Eos % (Auto) Baso % (Auto) Lymph # (Auto) [place] # (Auto) Eos # (Auto) Baso # (Auto) Abs Immat Gran (auto) Absolute Neuts (auto) Absolute Nucleated RBC Nucleated RBC % (auto) PT 13.6 H INR 1.1 Anion Gap Estim Creat Clear Calc Estimated GFR Random Glucose Lactic Acid 1.1 Calcium Magnesium Total Bilirubin Direct Bilirubin AST ALT Alkaline Phosphatase B-Natriuretic Peptide Total Protein Albumin Urine Color Yellow Urine Appearance Turbid Urine pH 6.5 Ur Specific [place] 1.010 Urine Protein 100 (2+) H Urine Glucose (UA) Negative Urine Ketones Negative Urine Blood Moderate (2+) H Urine Nitrite Positive H Ur Leukocyte Esterase Large (3+) H Urine RBC 11-20 H Urine WBC >50 H Ur Squamous Epith Cells 0-2 Urine Bacteria 4+ Hyaline Casts 0-2 11/27/22 11/27/22 06:17 09:29 MCV 84.1 MCH 25.6 L MCHC 30.4 L RDW 17.2 H Plt Count 201 MPV 11.9 Immature Gran % (Auto) 1.2 H Neut % (Auto) 84.6 H Lymph % (Auto) 4.9 L [place] % (Auto) 6.1 Eos % (Auto) 2.7 Baso % (Auto) 0.5 Lymph # (Auto) 0.8 L [place] # (Auto) 1.0 Eos # (Auto) 0.4 Baso # (Auto) 0.1 Abs Immat Gran (auto) 0.18 H Absolute Neuts (auto) 13.2 H Absolute Nucleated RBC 0.000 Nucleated RBC % (auto) 0.0 PT INR Anion Gap 15 Estim Creat Clear Calc 32.4 Estimated GFR 24 Random Glucose 109 Lactic Acid Calcium 8.9 Magnesium Total Bilirubin 0.7 Direct Bilirubin AST 9 ALT 8 Alkaline Phosphatase 64 B-Natriuretic Peptide Total Protein 5.9 L Albumin 2.9 L Urine Color Urine Appearance Urine pH Ur Specific [place] Urine Protein Urine Glucose (UA) Urine Ketones Urine Blood Urine Nitrite Ur Leukocyte Esterase Urine RBC Urine WBC Ur Squamous Epith Cells Urine Bacteria Hyaline Casts Microbiology Microbiology Results: Microbiology 11/26/22 Unknown Urine Culture - Preliminary Urine Catheterized - Straight Catheter Gram negative sancho Assessment and Plan (1) Acute and chronic respiratory failure with hypoxia: Status: Acute (2) Acute kidney injury superimposed on chronic kidney disease: Status: Acute Plan 72-year-old female with past medical history of COPD, CHF, REJI, comes into the hospital with complaints of shortness of breath; discussed with niece. States shortness of breath came on gradually with dry cough; patient appetite decreased as cough increased. 1.Acute hypoxic respiratory failure (query diastolic heart failure) -will switch p.o. Bumex to IV -good blood pressure control -titrate O2 2.LEO and CKD -switch Bumex to IV -follow renals/divalents -renal ultrasound to rule out obstructive pathology 3.Acute UTI - meropenem/vancomycin (1) - follow cultures 4.Diabetes type 2 -acceptable control on current therapies(outpt therapies) -lispro correctional scale -adjust as indicatred Heparin subQ Full code Will require ongoing hospitalization for treatment of likely diastolic heart failure; await cultures for active urinary sediment Time Spent With Patient Time: Total time managing care of this patient today ____ minutes. Quality Stroke Does the patient have a stroke diagnosis?: No VTE Prior VTE?: No VTE Risk Level:: Medical - moderate - high VTE Device Contraindication: Treatment Not Indicated VTE Drug Contraindication: N/A - Med Ordered
--- NOTE | 2022-11-27 15:02 | PC.NURSE ---
report given to RN on IMC. transport notified that pt is ready to go upstairs.
[2022-11-27 16:22] LABS: Glucose, Whole Blood 233 mg/dL (60-115)
[2022-11-27] MEDS: Bumetanide 1 MG/4 ML VIAL 2 MG IVPUSH (16:59)
[2022-11-27] MEDS: Insulin Lispro 100 UNIT/ML 3 ML VIAL SUBCUT ×2 (17:37→21:05)
[2022-11-27 20:37] LABS: Glucose, Whole Blood 392 mg/dL (60-115)
[2022-11-27] MEDS: Hydroxychloroquine Sulfate 200 MG TABLET PO (20:56)
[2022-11-27] MEDS: Metoprolol Tartrate 50 MG TABLET PO (20:56)
[2022-11-27] MEDS: Atorvastatin Calcium 20 MG TABLET PO (20:56)
[2022-11-27] MEDS: chlordiazePOXIDE HCl 5 MG CAPSULE 10 MG PO (21:08)
--- NOTE | 2022-11-27 23:12 | P.CNID_ITS ---
History of Present Illness Data of Consult Service Date: 11/27/22 Requesting physician: Grupo Oates Primary Care Provider: Tam Corea MD HPI Reason for consult: gram negative sancho urine She presents with weakness and urinary hesistancy for a dayl She has no fever or chills. Gram negative rods in urine. Review of Systems Review of Systems: Yes all other systems are reviewed and are negative PMFSH Past Medical History Medical History Acute respiratory failure Bradycardia Chronic lymphocytic leukemia (CLL), B-cell CKD (chronic kidney disease) CLL (chronic lymphocytic leukemia) Congestive heart failure Congestive heart failure COVID COVID-19 Diabetes mellitus with insulin therapy Dyspnea Essential hypertension HLD (hyperlipidemia) HTN (hypertension) Hypothyroidism Hypoxia Infection with ESBL Klebsiella oxytoca Influenza A Klebsiella pneumonia Lower extremity edema Lymphadenopathy, mediastinal Migraine Obesity Pleural effusion Pleural effusion Pneumonia due to COVID-19 virus Pseudotumor cerebri PVD (peripheral vascular disease) Suspected deep tissue injury Family History Family History Mother Heart attack, Onset Age: 92 Father Heart attack, Onset Age: 66 Other Diabetes Family history: reviewed and not pertinent Surgical History Surgical History H/O cataract extraction H/O hysterectomy for benign disease Hx of cholecystectomy S/P appendectomy Social History Social History Household Members: Family Household Members Other:: patient came from a rehab facility, been there since dec Housing: House Do you presently have visiting nurse or other home services: Yes Alcohol intake: never Patient Tobacco Use Status: Former Tobacco user Second Hand Smoke Exposure: No Advance Directives Date on File: 09/26/20 service: No Current occupational status: disabled Meds Allergies Allergy/AdvReac Type Severity Reaction Status Date / Time oxycodone [From Percocet] Allergy Intermediate Rash Verified 04/27/22 11:42 lisinopril Allergy Unknown Unknown Verified 04/27/22 11:42 Active Medications: Current Medications Acetaminophen (Acetaminophen 325 Mg Tablet) 650 mg PO Q6H PRN PRN Reason: Pain, Mild (Pain Scale 1-3) Acetaminophen/Butalbital/Caffeine (Butalb/Acetamin/Caff 50/325/40 Tablet) 1 tab PO Q6H PRN PRN Reason: Headache Albuterol/Ipratropium (Albuterol/Iprat 2.5/0.5mg 3 Ml Ampul.Neb) 3 ml INHALE RQ4H PRN PRN Reason: Shortness of Breath/Wheezing Amlodipine Besylate (Amlodipine Besylate 10 Mg Tablet) 10 mg PO DAILY [facility]; Protocol Artificial Tears (Artificial Tears 15 Ml Drops) 1 drop EYE-BOTH BID [facility] Atorvastatin Calcium (Atorvastatin Calcium 20 Mg Tablet) 20 mg PO BEDTIME [facility] Last Admin: 11/27/22 20:56 Dose: 20 mg Brimonidine Tartrate (Brimonidine Tartrate 0.2% Oph 5 Ml Bottle) 1 drop EYE- RIGHT BID [facility] Bumetanide (Bumetanide 1 Mg/4 Ml Vial) 2 mg IVPUSH BID@0900,1700 [facility]; Protocol Last Admin: 11/27/22 16:59 Dose: 2 mg Chlordiazepoxide HCl (Chlordiazepoxide Hcl 5 Mg Capsule) 10 mg PO BEDTIME [facility] Last Admin: 11/27/22 21:08 Dose: 10 mg Dextrose (Dextrose 50 % 25 Gm/50 Ml Syringe) 25 gm IVPUSH Q15M PRN; Protocol PRN Reason: per Hypoglycemia Standing Ord. Docusate Sodium (Docusate Sodium 100 Mg Capsule) 100 mg PO DAILY PRN PRN Reason: Constipation Dorzolamide HCl (Dorzolamide Hcl 2 % Ophth Mona 10 Ml Drpbtl) 1 drop EYE-RIGHT BID [facility] Escitalopram Oxalate (Escitalopram Oxalate 20 Mg Tablet) 20 mg PO DAILY [facility] Glucose (Glucose Gel 15 Gm Gel..Gram.) 15 gm PO Q15M PRN; Protocol PRN Reason: per Hypoglycemia Standing Ord. Heparin Sodium (Porcine) (Heparin Sodium,Porcine 5,000 Unit/Ml Vial) 5,000 unit SUBCUT Q12H [facility] Last Admin: 11/27/22 09:58 Dose: 5,000 unit Hydroxychloroquine Sulfate (Hydroxychloroquine Sulfate 200 Mg Tablet) 200 mg PO BID [facility] Last Admin: 11/27/22 20:56 Dose: 200 mg Meropenem 1 gm/ Sodium (Chloride) 100 mls @ 200 mls/hr IV Q12H [facility] Last Admin: 11/27/22 20:56 Dose: 200 mls/hr Vancomycin HCl 750 mg/ Sodium (Chloride) 265 mls @ 265 mls/hr IV Q24H [facility] Insulin Human Lispro (Insulin Lispro 100 Unit/Ml 3 Ml Vial) 0 unit SUBCUT QID ACHS [facility]; Protocol Last Admin: 11/27/22 21:05 Dose: 10 unit Latanoprost (Latanoprost 0.005 % Ophth Mona 2.5 Ml Drops) 1 drop EYE-BOTH BEDTIME [facility] Levothyroxine Sodium (Levothyroxine Sodium 175 Mcg Tablet) 175 mcg PO DAILY@0600 [facility] Magnesium Oxide (Magnesium Oxide 400 Mg Tablet) 400 mg PO DAILY [facility] Methylprednisolone Sodium Succinate (Methylprednisolone Sod Succ 40 Mg/Ml Vial) 40 mg IVPUSH Q12H [facility] Last Admin: 11/27/22 20:51 Dose: 40 mg Metoprolol Tartrate (Metoprolol Tartrate 50 Mg Tablet) 50 mg PO BID [facility]; Protocol Last Admin: 11/27/22 20:56 Dose: 50 mg Pt Own ( Acalabrutinib Maleate [Calquence ( Acalabrutinib Mal)] 100 Mg Tab 100 mg PO BID [facility] Last Admin: 11/27/22 20:51 Dose: 100 mg Ondansetron HCl (Ondansetron Hcl 4 Mg/2 Ml Vial) 4 mg IVPUSH Q8H PRN PRN Reason: Nausea and Vomiting Pharmacy Consult (Consult Rx Vancomycin Dosing) 1 each MISCELLANE DAILY PRN PRN Reason: Consult order Potassium Chloride (Potassium Chloride Er 20 Meq Tab.Er.Prt) 40 meq PO DAILY [facility] Prednisolone Acetate (Prednisolone Acetate 1 % Oph Susp 5 Ml Drpbtl) 1 drop EYE-RIGHT DAILY [facility] Sitagliptin Phosphate (Sitagliptin Phosphate 100 Mg Tablet) 100 mg PO DAILY [facility] Sodium Chloride (0.9 % Sodium Chloride Flush 3 Ml Syringe) 3 ml IVFLUSH QSHIFT [facility] Last Admin: 11/27/22 15:52 Dose: 3 ml Timolol Maleate (Timolol Maleate 0.5 % Oph Mona 5 Ml Drbtl) 1 drop EYE-RIGHT BID [facility] Tiotropium Madison (Tiotropium Madison 2.5 Mcg Inhaler) 1 puff INHALE RDAILY [facility] Home Medications Medication Instructions Recorded Confirmed Last Taken Type chlordiazepoxide HCl 10 mg capsule 10 mg PO BEDTIME 10/08/21 11/26/22 Unknown History citalopram 20 mg tablet 40 mg PO DAILY 10/08/21 11/26/22 Unknown History insulin lispro protamine-lispro 0 unit subcut QIDACHS 10/08/21 11/26/22 Unknown History 100 unit/mL (75-25) subcutaneous pen levothyroxine 175 mcg tablet 175 mcg PO DAILY@0600 10/08/21 11/26/22 Unknown History simvastatin 20 mg tablet 20 mg PO BEDTIME 10/08/21 11/26/22 Unknown History sitagliptin phosphate 100 mg 100 mg PO DAILY 10/08/21 11/26/22 Unknown History tablet (Januvia) latanoprost 0.005 % eye drops 1 drp ophthalmic (eye) BEDTIME 11/20/21 11/26/22 Unknown History albuterol sulfate 0.63 mg/3 mL 0.63 mg inhalation Q2H PRN Wheezing 02/16/22 11/26/22 Unknown History solution for nebulization brinzolamide 1 %-brimonidine 0.2 % 1 drp ophthalmic-Right BID 02/16/22 11/26/22 Unknown History eye drops,suspension (Simbrinza) [id number] 1 tab PO Q6H PRN Headache 02/16/22 11/26/22 Unknown History 50 mg-325 mg-40 mg tablet coenzyme Q10 100 mg capsule 150 mg PO DAILY 02/16/22 11/26/22 Unknown History (CoQ-10) insulin glargine 100 unit/mL (3 16 unit subcut BID 02/16/22 11/26/22 Unknown History mL) subcutaneous pen (Lantus Solostar U-100 Insulin) melatonin 5 mg tablet 5 mg PO BEDTIME 02/16/22 11/26/22 Unknown History metoprolol tartrate 50 mg tablet 50 mg PO BID 02/16/22 11/26/22 Unknown History prednisolone acetate 1 % eye 1 drp ophthalmic-Right DAILY 02/16/22 11/26/22 Unknown History drops,suspension sennosides 8.6 mg tablet (senna) 17.2 mg PO DAILY PRN Constipation 02/16/22 11/26/22 Unknown History timolol maleate 0.5 % eye drops 1 drp ophthalmic-Right BID 02/16/22 11/26/22 Unknown History carboxymethylcellulose sodium 1 % 1 drp ophthalmic (eye) BID 03/15/22 11/26/22 Unknown History eye drops (Artificial Tears (carboxymethylcellulose)) budesonide-formoterol HFA 160 2 puff inhalation BID 04/27/22 11/26/22 Unknown History mcg-4.5 mcg/actuation aerosol inhaler (Symbicort) umeclidinium 62.5 mcg/actuation 1 inh inhalation DAILY 04/27/22 11/26/22 Unknown History blister powder for inhalation (Incruse Ellipta) acetaminophen 325 mg tablet 650 mg PO Q4H PRN Pain (Scale 06/08/22 11/26/22 Unknown History (Tylenol) Score 4-6) amlodipine 10 mg tablet 10 mg PO DAILY high blood pressure 06/08/22 11/26/22 Unknown History guaifenesin 600 mg tablet, 600 mg PO BID cough 06/08/22 11/26/22 Unknown History extended release 12 hr polyethylene glycol 3350 17 17 g PO BID 06/08/22 11/26/22 Unknown History gram/dose oral powder (Miralax) sodium phosphates 19 gram-7 118 ml [place] BEDTIME PRN Constipation 06/08/22 11/26/22 Unknown History gram/118 mL enema (Fleet Enema) levalbuterol HCl 1.25 mg/3 mL 1.25 mg inhalation QID 07/30/22 11/26/22 Unknown History solution for nebulization biotin 5 mg tablet 5 mg PO DAILY 08/11/22 11/26/22 Unknown History bisacodyl 10 mg rectal suppository 10 mg [place] DAILY PRN Constipation 08/11/22 11/26/22 Unknown History guaifenesin 100 mg/5 mL oral liquid 200 mg PO Q4H PRN Pain (Scale 08/11/22 11/26/22 Unknown History Score 1-3) hydroxychloroquine 200 mg tablet 200 mg PO BID 08/11/22 11/26/22 Unknown History hydroxyzine HCl 25 mg tablet 25 mg PO DAILY 08/11/22 11/26/22 Unknown History lorazepam 0.5 mg tablet 0.5 mg PO BID PRN Anxiety 08/11/22 11/26/22 Unknown History magnesium 200 mg tablet 400 mg PO DAILY 08/11/22 11/26/22 Unknown History riboflavin (vitamin B2) 400 mg 400 mg PO DAILY 08/11/22 11/26/22 Unknown History tablet diphenhydramine-zinc acetate 2 1 appl topical BID 10/27/22 11/26/22 Unknown History %-0.1 % topical cream nystatin 100,000 unit/gram topical 1 appl topical BID 10/27/22 11/26/22 Unknown History powder prednisone 1 mg tablet 6 mg PO DAILY 10/27/22 11/26/22 Unknown History sennosides 8.6 mg-docusate sodium 1 tab-cap PO DAILY 10/27/22 11/26/22 Unknown History 50 mg tablet (Senna-S) Physical Exam Vital Signs: Vital Signs: Last Vital Signs Temp 98.0 F 11/27/22 20:00 Pulse 95 11/27/22 20:00 Resp 17 11/27/22 20:00 BP 117/58 L 11/27/22 20:00 Pulse Ox 98 11/27/22 20:00 O2 Del Method Room Air 11/27/22 20:00 Oxygen Flow Rate 2 11/26/22 17:10 BMI result Body Mass Index 45.5 Const: General: cooperative HEENT: Head: Yes normal to inspection Face and sinus: Yes normal facial exam Mouth: Normal oral and palatal mucosa present Teeth and gingiva: dentition normal Eyes: General: appearance normal, both eyes and all related structures Pupils: Equal, round and reactive pupils present Resp: Effort & Inspection: normal respiratory effort Cardio: Rate: regular rate Rhythm: regular rhythm GI: Palpation (GI): Soft to palpation and nontender : General: Yes no CVA tenderness Back/Spine/Pelvis: Back: no CVA tenderness Skin: General skin exam: no rashes or lesions noted Neuro: General: moves all extremities Cranial nerves: Yes Equal, round and reactive pupils present Extrem: General: Yes normal to inspection Psych: Appearance: grossly normal Results Labs 11/27/22 09:29 11/27/22 06:17 Labs: Short CBC 11/27/22 Range/Units 09:29 WBC 15.6 H (4.8-10.8) X10*3/uL Hgb 8.4 L (12.0-16.0) g/dl Hct 27.6 L (37.0-47.0) % Plt Count 201 (160-400) X10*3/uL BMP 11/27/22 06:17 Sodium 137 Potassium 4.2 Chloride 103 Carbon Dioxide 23 BUN 52 H Creatinine 2.02 H Calcium 8.9 Liver Function 11/27/22 Range/Units 06:17 Total Bilirubin 0.7 (0.0-1.0) mg/dL AST 9 (5-31) U/L ALT 8 (0-31) U/L Alkaline Phosphatase 64 (39-117) U/L Albumin 2.9 L (3.5-5.0) g/dL Microbiology Microbiology Results: Microbiology 11/26/22 20:18 Blood - Venous Blood Culture - Preliminary No growth after 24 hours. 11/26/22 20:17 Blood - Venous Blood Culture - Preliminary Prelim: GPC Gram Stain only 11/26/22 Unknown Urine Catheterized - Straight Catheter Urine Culture - Preliminary Gram negative sancho Assessment and Plan (1) Acute and chronic respiratory failure with hypoxia: Status: Acute There is concern over gram negative sancho urine Plan Continue Merem and Vancomycin for now, Blood and urine cultures await. Time Spent With Patient Time: Total time managing care of this patient today ____ minutes.
[2022-11-27] MEDS: Dorzolamide HCl 2 % Ophth Sol 10 ML DRPBTL 1 DROP EYE-RIGHT (23:14)
[2022-11-27] MEDS: Brimonidine Tartrate 0.2% Oph 5 ML BOTTLE 1 DROP EYE-RIGHT (23:14)
[2022-11-27] MEDS: Artificial Tears 15 ML DROPS 1 DROP EYE-BOTH (23:15)
[2022-11-27] MEDS: timoloL maleate 0.5 % Oph Sol 5 ML DRBTL 1 DROP EYE-RIGHT (23:15)
[2022-11-28] VITALS (7 sets, daily range): BP systolic 89–124; BP diastolic 37–64; PULSE 68–83; RESP 17–20; TEMP 36.1–37.1; O2SAT 91–100; BMI 45.6
[2022-11-28] MEDS: Heparin Sodium,Porcine 5,000 UNIT/ML VIAL 5000 UNIT SUBCUT ×3 (00:07→21:45)
[2022-11-28] MEDS: 0.9 % Sodium Chloride Flush 3 ML SYRINGE IVFLUSH ×4 (00:08→21:00)
[2022-11-28] MEDS: methylPREDNISolone Sod Succ 40 MG/ML VIAL IVPUSH ×2 (06:22→20:56)
[2022-11-28] MEDS: Levothyroxine Sodium 175 MCG TABLET PO (06:22)
[2022-11-28 06:37] LABS: Alanine Aminotransferase 10 U/L (0-31); Albumin Level 3.2 g/dL (3.5-5.0); Alkaline Phosphatase 67 U/L (39-117); Anion Gap 20 (12-20); Aspartate Amino Transferase 10 U/L (5-31); Bilirubin Total 0.5 mg/dL (0.0-1.0); Blood Urea Nitrogen 73 mg/dL (9-16); Calcium 8.9 mg/dL (8.4-10.2); Carbon Dioxide 20 mmol/L (22-29); Chloride 98 mmol/L (96-108); Creatinine Clr Calc Pharmacy 29.3; Estimated Glomerular Filt Rate 22; Potassium 4.7 mmol/L (3.3-5.1); Sodium 133 mmol/L (135-145); Total Protein 6.5 g/dL (6.5-8.0)
[2022-11-28 06:38] LABS: Glucose Fasting 524 mg/dL (60-99)
[2022-11-28] MEDS: Insulin Lispro 100 UNIT/ML 3 ML VIAL SUBCUT ×5 (06:45→21:39)
[2022-11-28] MEDS: Insulin Lispro 100 UNIT/ML 3 ML VIAL 10 UNIT SUBCUT ×2 (06:47→12:54)
[2022-11-28 06:53] LABS: Hematocrit 30.4 % (37.0-47.0); Hemoglobin 9.2 g/dl (12.0-16.0); Mean Corpuscular HGB Conc 30.3 g/dl (31.0-35.0); Mean Corpuscular Hemoglobin 25.3 pg (27.0-33.0); Mean Corpuscular Volume 83.7 fL (80.0-98.0); Mean Platelet Volume 12.2 fL (9.4-12.3); Neutrophils Percent Auto 91.7 % (45-73); Platelet Count 252 X10*3/uL (160-400); Red Blood Count 3.63 X10*6/uL (4.20-5.50)
[2022-11-28 06:55] LABS: Imm Gran Pct Auto 0.8 % (0.0-0.4)
[2022-11-28 06:56] LABS: Basophils Percent Auto 0.2 % (0-2); Imm Gran Abs Auto 0.09 X10*3/uL (0.00-0.03); Lymphocytes Absolute Auto 0.6 X10*3/uL (1.2-4.9); Lymphocytes Percent Auto 4.6 % (20-40); MANUAL DIFF FLAG SCAN; Monocytes Absolute Auto 0.3 X10*3/uL (0.1-1.2); Monocytes Percent Auto 2.7 % (2-11)
[2022-11-28 06:57] LABS: SCAN SMEAR FLAG 1
[2022-11-28 07:21] LABS: Glucose, Whole Blood 467 mg/dL (60-115)
[2022-11-28 07:27] LABS: SLIDE REVIEW VERIFIED
--- NOTE | 2022-11-28 07:32 | PC.NURSE ---
POC this am 524, Dr. Atkinson notified. Humalog 10 units per sliding scale administered in addition to a one time dose of Humalog 10 units , a total of 20 units of Humalog admistered as per orders. Report given to oncoming RN. Will continue to monitor.
[2022-11-28] MEDS: Bumetanide 1 MG/4 ML VIAL 2 MG IVPUSH ×2 (08:36→16:57)
[2022-11-28] MEDS: Hydroxychloroquine Sulfate 200 MG TABLET PO ×2 (08:43→20:54)
[2022-11-28] MEDS: Escitalopram Oxalate 20 MG TABLET PO (08:43)
[2022-11-28] MEDS: amLODIPine Besylate 10 MG TABLET PO (08:43)
[2022-11-28] MEDS: Magnesium Oxide 400 MG TABLET PO (08:43)
[2022-11-28] MEDS: Brimonidine Tartrate 0.2% Oph 5 ML BOTTLE 1 DROP EYE-RIGHT ×2 (08:44→21:12)
[2022-11-28] MEDS: SITagliptin Phosphate 100 MG TABLET PO (08:44)
[2022-11-28] MEDS: Potassium Chloride ER 20 MEQ TAB.ER.PRT 40 MEQ PO (08:44)
[2022-11-28] MEDS: Metoprolol Tartrate 50 MG TABLET PO ×2 (08:44→20:54)
[2022-11-28] MEDS: Artificial Tears 15 ML DROPS 1 DROP EYE-BOTH ×2 (08:44→21:13)
[2022-11-28] MEDS: vancomycin HCL 750 MG in 0.9 % Sodium Chloride 250 ML 265 MG IV (08:47)
[2022-11-28] MEDS: Dorzolamide HCl 2 % Ophth Sol 10 ML DRPBTL 1 DROP EYE-RIGHT ×2 (08:55→21:12)
[2022-11-28] MEDS: timoloL maleate 0.5 % Oph Sol 5 ML DRBTL 1 DROP EYE-RIGHT ×2 (08:59→21:12)
[2022-11-28] MEDS: Insulin Lispro 100 UNIT/ML 3 ML VIAL 15 UNIT SUBCUT (09:00)
--- NOTE | 2022-11-28 10:37 | MHC.CM.PN ---
IMM 11/28/22, EMR REVIEWED, PT ADMITTED W/CHF/CKI/UTI, CM MET W/PT AND NIECE/HCP NIA AT BEDSIDE, PT SIGNED IMM AND REPORTS SHE WOULD LIKE PLACEMENT BUT [facility], IF NO [facility]S AVAILABLE PT WILL D/C HOME W/RESUMP OF COMFORT PLUS VNA AND FAMILY SUPPORT. PER PT AND NIECE THERE HAVE BEEN NO CHANGES SINCE RECENT D/C, PCP KENIA MACKENZIE AND HCP ON FILE.
[2022-11-28 11:45] LABS: Glucose, Whole Blood 421 mg/dL (60-115)
--- NOTE | 2022-11-28 11:58 | PM.PNNEP ---
Subjective Subjective Date of Service: 11/29/22 Interval history: Events noted. No improvement in creatinine Physical Exam Vital Signs: Vital Signs: Last Vital Signs Temp 98.1 F 11/28/22 08:00 Pulse 78 11/28/22 08:00 Resp 20 11/28/22 08:00 BP 124/57 L 11/28/22 08:00 Pulse Ox 100 11/28/22 08:00 O2 Del Method Room Air 11/28/22 08:00 Oxygen Flow Rate 2 11/26/22 17:10 BMI result Body Mass Index 45.6 !Comfortable Neck is supple Lung: Air entry equal Heart: S1,S2, normal. No rub Abd: Soft. BS + NS : Alert.No asterexis Ext: + edema Objective Data Labs 11/28/22 05:46 11/28/22 05:46 Labs: Laboratory Results - last 24 hr 11/27/22 11/27/22 11/28/22 16:04 20:27 05:46 WBC RBC Hgb Hct MCV MCH MCHC RDW Plt Count MPV Immature Gran % (Auto) Neut % (Auto) Lymph % (Auto) Upton % (Auto) Eos % (Auto) Baso % (Auto) Lymph # (Auto) [place] # (Auto) Eos # (Auto) Baso # (Auto) Abs Immat Gran (auto) Absolute Neuts (auto) Absolute Nucleated RBC Nucleated RBC % (auto) Smear Tech's Comments Sodium 133 L Potassium 4.7 Chloride 98 Carbon Dioxide 20 L Anion Gap 20 BUN 73 H Creatinine 2.17 H Estim Creat Clear Calc 29.3 Estimated GFR 22 POC Glucose 233 H 392 H* Fasting Glucose 524 H* Calcium 8.9 Total Bilirubin 0.5 AST 10 ALT 10 Alkaline Phosphatase 67 Total Protein 6.5 Albumin 3.2 L 11/28/22 11/28/22 11/28/22 05:46 07:06 11:31 WBC 12.0 H RBC 3.63 L Hgb 9.2 L Hct 30.4 L MCV 83.7 MCH 25.3 L MCHC 30.3 L RDW 17.0 H Plt Count 252 D MPV 12.2 Immature Gran % (Auto) 0.8 H Neut % (Auto) 91.7 H Lymph % (Auto) 4.6 L [place]pton % (Auto) 2.7 Eos % (Auto) 0.0 Baso % (Auto) 0.2 Lymph # (Auto) 0.6 L [place] # (Auto) 0.3 Eos # (Auto) 0.0 Baso # (Auto) 0.0 Abs Immat Gran (auto) 0.09 H Absolute Neuts (auto) 11.0 H Absolute Nucleated RBC 0.000 Nucleated RBC % (auto) 0.0 Smear Tech's Comments VERIFIED Sodium Potassium Chloride Carbon Dioxide Anion Gap BUN Creatinine Estim Creat Clear Calc Estimated GFR POC Glucose 467 H* 421 H* Fasting Glucose Calcium Total Bilirubin AST ALT Alkaline Phosphatase Total Protein Albumin Microbiology Microbiology Results: Microbiology 11/26/22 Unknown Urine Catheterized - Straight Catheter Urine Culture - Preliminary Escherichia coli Staphylococcus aureus 11/26/22 20:17 Blood - Venous Blood Culture - Preliminary Staphylococcus species 11/26/22 20:18 Blood - Venous Blood Culture - Preliminary No growth after 24 hours. Procedures Date of Service Date of Service: 11/29/22 Assessment & Plan Assessment and plan (1) Acute kidney injury superimposed on chronic kidney disease: Status: Acute Plan LEO superimposed on CKD. No evidence of obstruction based on renal ultrasonogram. Probably has tubular injury. Glomerular nephritis or interstitial disease cannot be ruled out yet. Has evidence of fluid overload. Plan Continue to cautiously diurese her. Keep output more than intake. Continue to avoid nephrotoxic agents. No absolute indication for dialysis. Recheck urine protein creatinine ratio. Time Spent With Patient Time: Total time managing care of this patient today ____ minutes. Progress Note: Quality Stroke Does the patient have a stroke diagnosis?: No
[2022-11-28] MEDS: Insulin Glargine,Hum.rec.anlog 100 UNIT/ML 10 ML VIAL 16 UNIT SUBCUT ×2 (12:54→20:55)
--- NOTE | 2022-11-28 13:05 | P.PNIM_ITS ---
Subjective Subjective Date of Service: 11/28/22 Interval History: No acute issues overnight. Saturation since maintained Review of Systems Denies chest pain Denies shortness of breath Denies nausea vomiting diarrhea Denies fever chills Physical Exam Vital Signs: Vital Signs: Last Vital Signs Temp 97.0 F 11/28/22 12:00 Pulse 68 11/28/22 12:00 Resp 20 11/28/22 12:00 BP 107/51 L 11/28/22 12:00 Pulse Ox 100 11/28/22 12:00 O2 Del Method Room Air 11/28/22 12:00 Oxygen Flow Rate 2 11/26/22 17:10 BMI result Body Mass Index 45.6 Const: Other: Awake alert no acute distress Resp: Other: Clear to auscultation bilaterally no rales rhonchi wheezes Cardio: Other: No S4; positive S1-S2; no S3 murmurs rubs or gallops GI: Other: Soft nontender nondistended normoactive bowel sounds Extrem: Other: No edema bilaterally Objective Data Active Medications Acetaminophen (Acetaminophen 325 Mg Tablet) 650 mg PO Q6H PRN PRN Reason: Pain, Mild (Pain Scale 1-3) Acetaminophen/Butalbital/Caffeine (Butalb/Acetamin/Caff 50/325/40 Tablet) 1 tab PO Q6H PRN PRN Reason: Headache Albuterol/Ipratropium (Albuterol/Iprat 2.5/0.5mg 3 Ml Ampul.Neb) 3 ml INHALE RQ4H PRN PRN Reason: Shortness of Breath/Wheezing Amlodipine Besylate (Amlodipine Besylate 10 Mg Tablet) 10 mg PO DAILY [facility]; Protocol Last Admin: 11/28/22 08:43 Dose: 10 mg Documented By: SPARKLE Artificial Tears (Artificial Tears 15 Ml Drops) 1 drop EYE-BOTH BID [facility] Last Admin: 11/28/22 08:44 Dose: 1 drop Documented By: SPARKLE Atorvastatin Calcium (Atorvastatin Calcium 20 Mg Tablet) 20 mg PO BEDTIME [facility] Last Admin: 11/27/22 20:56 Dose: 20 mg Documented By: ELGIN Brimonidine Tartrate (Brimonidine Tartrate 0.2% Oph 5 Ml Bottle) 1 drop EYE- RIGHT BID [facility] Last Admin: 11/28/22 08:44 Dose: 1 drop Documented By: HO.GRAHAMA Bumetanide (Bumetanide 1 Mg/4 Ml Vial) 2 mg IVPUSH BID@0900,1700 [facility]; Protocol Last Admin: 11/28/22 08:36 Dose: 2 mg Documented By: SPARKLE Chlordiazepoxide HCl (Chlordiazepoxide Hcl 5 Mg Capsule) 10 mg PO BEDTIME [facility] Last Admin: 11/27/22 21:08 Dose: 10 mg Documented By: ELGIN Dextrose (Dextrose 50 % 25 Gm/50 Ml Syringe) 25 gm IVPUSH Q15M PRN; Protocol PRN Reason: per Hypoglycemia Standing Ord. Docusate Sodium (Docusate Sodium 100 Mg Capsule) 100 mg PO DAILY PRN PRN Reason: Constipation Dorzolamide HCl (Dorzolamide Hcl 2 % Ophth Mona 10 Ml Drpbtl) 1 drop EYE-RIGHT BID [facility] Last Admin: 11/28/22 08:55 Dose: 1 drop Documented By: SPARKLE Escitalopram Oxalate (Escitalopram Oxalate 20 Mg Tablet) 20 mg PO DAILY [facility] Last Admin: 11/28/22 08:43 Dose: 20 mg Documented By: SPARKLE Glucose (Glucose Gel 15 Gm Gel..Gram.) 15 gm PO Q15M PRN; Protocol PRN Reason: per Hypoglycemia Standing Ord. Heparin Sodium (Porcine) (Heparin Sodium,Porcine 5,000 Unit/Ml Vial) 5,000 unit SUBCUT Q12H [facility] Last Admin: 11/28/22 11:56 Dose: 5,000 unit Documented By: SPARKLE Hydroxychloroquine Sulfate (Hydroxychloroquine Sulfate 200 Mg Tablet) 200 mg PO BID [facility] Last Admin: 11/28/22 08:43 Dose: 200 mg Documented By: SPARKLE Meropenem 1 gm/ Sodium (Chloride) 100 mls @ 200 mls/hr IV Q12H [facility] Last Infusion: 11/28/22 09:21 Dose: 0 mls/hr Documented By: SPARKLE Vancomycin HCl 750 mg/ Sodium (Chloride) 265 mls @ 265 mls/hr IV Q24H [facility] Last Infusion: 11/28/22 10:28 Dose: 0 mls/hr Documented By: SPARKLE Insulin Glargine (Insulin Glargine,Hum.Rec.Anlog 100 Unit/Ml 10 Ml Vial) 16 unit SUBCUT BID [facility] Last Admin: 11/28/22 12:54 Dose: 16 unit Documented By: SPARKLE Insulin Human Lispro (Insulin Lispro 100 Unit/Ml 3 Ml Vial) 0 unit SUBCUT QIDACHS [facility]; Protocol Last Admin: 11/28/22 11:56 Dose: 10 unit Documented By: SPARKLE Latanoprost (Latanoprost 0.005 % Ophth Mona 2.5 Ml Drops) 1 drop EYE-BOTH BEDTIME [facility] Last Admin: 11/27/22 23:15 Dose: Not Given Documented By: ELGIN Non-Admin Reason: Med Not Available Levothyroxine Sodium (Levothyroxine Sodium 175 Mcg Tablet) 175 mcg PO DAILY@0600 [facility] Last Admin: 11/28/22 06:22 Dose: 175 mcg Documented By: ELGIN Magnesium Oxide (Magnesium Oxide 400 Mg Tablet) 400 mg PO DAILY [facility] Last Admin: 11/28/22 08:43 Dose: 400 mg Documented By: SPARKLE Methylprednisolone Sodium Succinate (Methylprednisolone Sod Succ 40 Mg/Ml Vial) 40 mg IVPUSH Q12H [facility] Last Admin: 11/28/22 06:22 Dose: 40 mg Documented By: ELGIN Metoprolol Tartrate (Metoprolol Tartrate 50 Mg Tablet) 50 mg PO BID [facility]; Protocol Last Admin: 11/28/22 08:44 Dose: 50 mg Documented By: SPARKLE Pt Own ( Acalabrutinib Maleate [Calquence ( Acalabrutinib Mal)] 100 Mg Tab 100 mg PO BID [facility] Last Admin: 11/28/22 08:44 Dose: 100 mg Documented By: SPARKLE Ondansetron HCl (Ondansetron Hcl 4 Mg/2 Ml Vial) 4 mg IVPUSH Q8H PRN PRN Reason: Nausea and Vomiting Pharmacy Consult (Consult Rx Vancomycin Dosing) 1 each MISCELLANE DAILY PRN PRN Reason: Consult order Potassium Chloride (Potassium Chloride Er 20 Meq Tab.Er.Prt) 40 meq PO DAILY [facility] Last Admin: 11/28/22 08:44 Dose: 40 meq Documented By: SPARKLE Prednisolone Acetate (Prednisolone Acetate 1 % Oph Susp 5 Ml Drpbtl) 1 drop EYE-RIGHT DAILY [facility] Last Admin: 11/28/22 11:38 Dose: Not Given Documented By: SPARKLE Non-Admin Reason: Med Not Available Comments: called pharmacy to restock Sitagliptin Phosphate (Sitagliptin Phosphate 100 Mg Tablet) 100 mg PO DAILY [facility] Last Admin: 11/28/22 08:44 Dose: 100 mg Documented By: SPARKLE Sodium Chloride (0.9 % Sodium Chloride Flush 3 Ml Syringe) 3 ml IVFLUSH QSHIFT [facility] Last Admin: 11/28/22 08:37 Dose: 3 ml Documented By: SPARKLE Timolol Maleate (Timolol Maleate 0.5 % Oph Mona 5 Ml Drbtl) 1 drop EYE-RIGHT BID [facility] Last Admin: 11/28/22 08:59 Dose: 1 drop Documented By: SPARKLE Tiotropium [place] (Tiotropium [place] 2.5 Mcg Inhaler) 1 puff INHALE RDAILY [facility] Last Admin: 11/28/22 08:35 Dose: Not Given Documented By: MAREK Non-Admin Reason: pharmacy called Labs 11/28/22 05:46 11/28/22 05:46 Labs: Laboratory Results - last 24 hr 11/27/22 11/27/22 11/28/22 16:04 20:27 05:46 MCV MCH MCHC RDW Plt Count MPV Immature Gran % (Auto) Neut % (Auto) Lymph % (Auto) [place] % (Auto) Eos % (Auto) Baso % (Auto) Lymph # (Auto) [place] # (Auto) Eos # (Auto) Baso # (Auto) Abs Immat Gran (auto) Absolute Neuts (auto) Absolute Nucleated RBC Nucleated RBC % (auto) Smear Tech's Comments Anion Gap 20 Estim Creat Clear Calc 29.3 Estimated GFR 22 POC Glucose 233 H 392 H* Fasting Glucose 524 H* Calcium 8.9 Total Bilirubin 0.5 AST 10 ALT 10 Alkaline Phosphatase 67 Total Protein 6.5 Albumin 3.2 L 11/28/22 11/28/22 11/28/22 05:46 07:06 11:31 MCV 83.7 MCH 25.3 L MCHC 30.3 L RDW 17.0 H Plt Count 252 D MPV 12.2 Immature Gran % (Auto) 0.8 H Neut % (Auto) 91.7 H Lymph % (Auto) 4.6 L [place] % (Auto) 2.7 Eos % (Auto) 0.0 Baso % (Auto) 0.2 Lymph # (Auto) 0.6 L [place] # (Auto) 0.3 Eos # (Auto) 0.0 Baso # (Auto) 0.0 Abs Immat Gran (auto) 0.09 H Absolute Neuts (auto) 11.0 H Absolute Nucleated RBC 0.000 Nucleated RBC % (auto) 0.0 Smear Tech's Comments VERIFIED Anion Gap Estim Creat Clear Calc Estimated GFR POC Glucose 467 H* 421 H* Fasting Glucose Calcium Total Bilirubin AST ALT Alkaline Phosphatase Total Protein Albumin Microbiology Microbiology Results: Microbiology 11/26/22 Unknown Urine Culture - Preliminary Urine Catheterized - Straight Catheter Escherichia coli Staphylococcus aureus 11/26/22 20:17 Blood Culture - Preliminary Blood - Venous Staphylococcus species 11/26/22 20:18 Blood Culture - Preliminary Blood - Venous No growth after 24 hours. Assessment and Plan (1) Acute UTI: Status: Acute (2) Acute kidney injury superimposed on chronic kidney disease: Status: Acute Plan 72-year-old female with past medical history of COPD, CHF, REJI, comes into the hospital with complaints of shortness of breath; discussed with niece. States shortness of breath came on gradually with dry cough; patient appetite decreased as cough increased. Urine positive for E coli ESBL 1.Acute UTI(E coli ESBL) - meropenem/vancomycin (2) - await final cultures cultures 2.LEO and CKD -essentially no change -continue Bumex to IV -follow renals/divalents -renal ultrasound .... No obstructive pathology 3..Acute hypoxic respiratory failure (query diastolic heart failure) -will switch p.o. Bumex to IV -good blood pressure control -titrate O2 4.Diabetes type 2 -acceptable control on current therapies(outpt therapies) -lispro correctional scale -adjust as indicatred Heparin subQ Full code Will require ongoing hospitalization for treatment of E coli ESBL UTI with IV antibiotics Time Spent With Patient Time: Total time managing care of this patient today ____ minutes. Quality Stroke Does the patient have a stroke diagnosis?: No VTE Prior VTE?: No VTE Risk Level:: Medical - moderate - high VTE Device Contraindication: Treatment Not Indicated VTE Drug Contraindication: N/A - Med Ordered
[2022-11-28 16:38] LABS: Glucose, Whole Blood 328 mg/dL (60-115)
[2022-11-28 20:38] LABS: Glucose, Whole Blood 408 mg/dL (60-115)
[2022-11-28] MEDS: Atorvastatin Calcium 20 MG TABLET PO (20:54)
[2022-11-28] MEDS: chlordiazePOXIDE HCl 5 MG CAPSULE 10 MG PO (20:54)
[2022-11-28] MEDS: Latanoprost 0.005 % Ophth Sol 2.5 ML DROPS 1 DROP EYE-BOTH (21:39)
[2022-11-29] VITALS (7 sets, daily range): BP systolic 102–121; BP diastolic 37–54; PULSE 59–89; RESP 16–20; TEMP 36–37.2; O2SAT 92–100; BMI 46.2
[2022-11-29] MEDS: Levothyroxine Sodium 175 MCG TABLET PO (05:44)
[2022-11-29 07:10] LABS: Basophils Percent Auto 0.1 % (0-2); Eosinophils Percent Auto 0.1 % (0-4); Hematocrit 26.9 % (37.0-47.0); Hemoglobin 8.4 g/dl (12.0-16.0); Imm Gran Abs Auto 0.13 X10*3/uL (0.00-0.03); Imm Gran Pct Auto 0.9 % (0.0-0.4); Lymphocytes Absolute Auto 0.6 X10*3/uL (1.2-4.9); Lymphocytes Percent Auto 3.6 % (20-40); MANUAL DIFF FLAG SCAN; Mean Corpuscular HGB Conc 31.2 g/dl (31.0-35.0); Mean Corpuscular Hemoglobin 25.6 pg (27.0-33.0); Mean Platelet Volume 12.6 fL (9.4-12.3); Monocytes Absolute Auto 0.3 X10*3/uL (0.1-1.2); Monocytes Percent Auto 2.2 % (2-11); Neutrophils Absolute Auto 14.2 x10*3/uL (2.0-8.3); Neutrophils Percent Auto 93.1 % (45-73); Platelet Count 246 X10*3/uL (160-400); Red Blood Count 3.28 X10*6/uL (4.20-5.50); Red Cell Distribution Width 16.8 % (11.0-16.0); SCAN SMEAR FLAG 1; White Blood Count 15.2 X10*3/uL (4.8-10.8)
[2022-11-29 07:32] LABS: Vancomycin Random 21.5 mcg/mL (15-20)
[2022-11-29 07:33] LABS: SLIDE REVIEW VERIFIED
[2022-11-29 07:39] LABS: Alanine Aminotransferase 7 U/L (0-31); Albumin Level 2.9 g/dL (3.5-5.0); Alkaline Phosphatase 56 U/L (39-117); Anion Gap 16 (12-20); Aspartate Amino Transferase 6 U/L (5-31); Bilirubin Total 0.3 mg/dL (0.0-1.0); Blood Urea Nitrogen 91 mg/dL (9-16); Calcium 8.3 mg/dL (8.4-10.2); Carbon Dioxide 22 mmol/L (22-29); Chloride 99 mmol/L (96-108); Creatinine Clr Calc Pharmacy 29.9; Estimated Glomerular Filt Rate 23; Potassium 5.1 mmol/L (3.3-5.1); Sodium 132 mmol/L (135-145); Total Protein 5.7 g/dL (6.5-8.0)
[2022-11-29 07:43] LABS: Glucose, Whole Blood 447 mg/dL (60-115)
[2022-11-29 07:47] LABS: Glucose Fasting 478 mg/dL (60-99)
--- NOTE | 2022-11-29 07:56 | HE.PHANOTE ---
RE VANCO TROUGH WAS 21.5, LOWERING DOSE TO 500MG Q24H. NEXT LEVEL DUE 12/01 @0700 [facility]
[2022-11-29] MEDS: Insulin Lispro 100 UNIT/ML 3 ML VIAL 6 UNIT SUBCUT (08:26)
[2022-11-29] MEDS: Insulin Glargine,Hum.rec.anlog 100 UNIT/ML 10 ML VIAL 16 UNIT SUBCUT ×2 (08:27→23:10)
[2022-11-29] MEDS: Insulin Lispro 100 UNIT/ML 3 ML VIAL SUBCUT ×3 (08:27→23:10)
[2022-11-29] MEDS: Bumetanide 1 MG/4 ML VIAL 2 MG IVPUSH ×2 (08:28→16:59)
[2022-11-29] MEDS: Potassium Chloride ER 20 MEQ TAB.ER.PRT 40 MEQ PO (08:30)
[2022-11-29] MEDS: Escitalopram Oxalate 20 MG TABLET PO (08:31)
[2022-11-29] MEDS: SITagliptin Phosphate 100 MG TABLET PO (08:31)
[2022-11-29] MEDS: Metoprolol Tartrate 50 MG TABLET PO ×2 (08:31→23:08)
[2022-11-29] MEDS: Magnesium Oxide 400 MG TABLET PO (08:31)
[2022-11-29] MEDS: 0.9 % Sodium Chloride Flush 3 ML SYRINGE IVFLUSH (08:33)
[2022-11-29] MEDS: Hydroxychloroquine Sulfate 200 MG TABLET PO ×2 (08:35→23:09)
[2022-11-29] MEDS: Dorzolamide HCl 2 % Ophth Sol 10 ML DRPBTL 1 DROP EYE-RIGHT ×2 (09:22→23:11)
[2022-11-29] MEDS: timoloL maleate 0.5 % Oph Sol 5 ML DRBTL 1 DROP EYE-RIGHT ×2 (09:22→23:11)
[2022-11-29] MEDS: Artificial Tears 15 ML DROPS 1 DROP EYE-BOTH ×2 (09:23→23:08)
[2022-11-29] MEDS: Brimonidine Tartrate 0.2% Oph 5 ML BOTTLE 1 DROP EYE-RIGHT ×2 (09:23→23:12)
[2022-11-29] MEDS: Heparin Sodium,Porcine 5,000 UNIT/ML VIAL 5000 UNIT SUBCUT ×2 (09:24→23:10)
--- NOTE | 2022-11-29 11:04 | P.PNNP_ITS ---
Subjective Subjective Date of Service: 11/30/22 Interval history: Events noted Physical Exam Vital Signs: Vital Signs: Last Vital Signs Temp 98.9 F 11/29/22 07:16 Pulse 67 11/29/22 08:06 Resp 20 11/29/22 08:06 BP 121/51 L 11/29/22 07:16 Pulse Ox 100 11/29/22 07:16 O2 Del Method Room Air 11/29/22 07:16 Oxygen Flow Rate 2 11/26/22 17:10 BMI result Body Mass Index 46.2 Comfortable Neck is supple Lung: Air entry equal Heart: S1,S2, normal. No rub Abd: Soft. BS + NS : Alert.No asterexis Objective Data Labs 11/29/22 06:23 11/29/22 06:23 Labs: Laboratory Results - last 24 hr 11/28/22 11/28/22 11/28/22 11:31 16:33 20:35 WBC RBC Hgb Hct MCV MCH MCHC RDW Plt Count MPV Immature Gran % (Auto) Neut % (Auto) Lymph % (Auto) [place] % (Auto) Eos % (Auto) Baso % (Auto) Lymph # (Auto) [place] # (Auto) Eos # (Auto) Baso # (Auto) Abs Immat Gran (auto) Absolute Neuts (auto) Absolute Nucleated RBC Nucleated RBC % (auto) Smear Tech's Comments Sodium Potassium Chloride Carbon Dioxide Anion Gap BUN Creatinine Estim Creat Clear Calc Estimated GFR POC Glucose 421 H* 328 H 408 H* Fasting Glucose Calcium Total Bilirubin AST ALT Alkaline Phosphatase Total Protein Albumin Random Vancomycin 11/29/22 11/29/22 11/29/22 06:23 06:23 06:23 WBC 15.2 H RBC 3.28 L Hgb 8.4 L Hct 26.9 L MCV 82.0 MCH 25.6 L MCHC 31.2 RDW 16.8 H Plt Count 246 MPV 12.6 H Immature Gran % (Auto) 0.9 H Neut % (Auto) 93.1 H Lymph % (Auto) 3.6 L [place] % (Auto) 2.2 Eos % (Auto) 0.1 Baso % (Auto) 0.1 Lymph # (Auto) 0.6 L [place] # (Auto) 0.3 Eos # (Auto) 0.0 Baso # (Auto) 0.0 Abs Immat Gran (auto) 0.13 H Absolute Neuts (auto) 14.2 H Absolute Nucleated RBC 0.000 Nucleated RBC % (auto) 0.0 Smear Tech's Comments VERIFIED Sodium 132 L Potassium 5.1 Chloride 99 Carbon Dioxide 22 Anion Gap 16 BUN 91 H Creatinine 2.14 H Estim Creat Clear Calc 29.9 Estimated GFR 23 POC Glucose Fasting Glucose 478 H* Calcium 8.3 L D Total Bilirubin 0.3 AST 6 ALT 7 Alkaline Phosphatase 56 Total Protein 5.7 L Albumin 2.9 L Random Vancomycin 21.5 H 11/29/22 07:21 WBC RBC Hgb Hct MCV MCH MCHC RDW Plt Count MPV Immature Gran % (Auto) Neut % (Auto) Lymph % (Auto) [place] % (Auto) Eos % (Auto) Baso % (Auto) Lymph # (Auto) [place] # (Auto) Eos # (Auto) Baso # (Auto) Abs Immat Gran (auto) Absolute Neuts (auto) Absolute Nucleated RBC Nucleated RBC % (auto) Smear Tech's Comments Sodium Potassium Chloride Carbon Dioxide Anion Gap BUN Creatinine Estim Creat Clear Calc Estimated GFR POC Glucose 447 H* Fasting Glucose Calcium Total Bilirubin AST ALT Alkaline Phosphatase Total Protein Albumin Random Vancomycin Microbiology Microbiology Results: Microbiology 11/26/22 Unknown Urine Catheterized - Straight Catheter Urine Culture - Final Escherichia coli Methicillin Res Staph Aureus 11/26/22 20:17 Blood - Venous Blood Culture - Final Methicillin Res Staph Aureus 11/27/22 22:28 Blood - Venous Blood Culture - Preliminary No growth after 24 hours. 11/27/22 22:14 Blood - Venous Blood Culture - Preliminary No growth after 24 hours. 11/26/22 20:18 Blood - Venous Blood Culture - Preliminary No growth after 48 hours. Procedures Date of Service Date of Service: 11/30/22 Assessment & Plan Assessment and plan (1) Acute kidney injury superimposed on chronic kidney disease: Status: Acute Plan LEO superimposed on CKD. No evidence of obstruction based on renal ultrasonogram. Probably has tubular injury. Glomerular nephritis or interstitial disease cannot be ruled out yet. Has evidence of fluid overload. Plan Continue to cautiously diurese her. Can switch from IV to oral Bumex. Decreased to 2 mg p.o. q.d. Keep output more than intake. Continue to avoid nephrotoxic agents. Time Spent With Patient Time: Total time managing care of this patient today ____ minutes. Progress Note: Quality Stroke Does the patient have a stroke diagnosis?: No
[2022-11-29 11:17] LABS: Glucose, Whole Blood 470 mg/dL (60-115)
[2022-11-29] MEDS: prednisoLONE Acetate 1 % Oph Susp 5 ML DRPBTL 1 DROP EYE-RIGHT (11:45)
[2022-11-29 16:00] LABS: Glucose, Whole Blood 405 mg/dL (60-115)
--- NOTE | 2022-11-29 17:39 | HO.PM.IMPN ---
Subjective Subjective Date of Service: 11/30/22 Interval History: resting comfortably offers no acute complaints, denies urinary symptoms no burning, no dysuria, no fevers, no chills, no other acute issues overnight, lost her IV site, tolerating diet no nausea no vomiting no abdominal pain Review of Systems all other symptoms reviewed and negative Physical Exam Vital Signs: Vital Signs: Last Vital Signs Temp 98.1 F 11/29/22 15:08 Pulse 89 11/29/22 15:08 Resp 16 11/29/22 15:08 BP 104/54 L 11/29/22 15:08 Pulse Ox 96 11/29/22 15:08 O2 Del Method Room Air 11/29/22 15:08 Oxygen Flow Rate 2 11/26/22 17:10 BMI result Body Mass Index 46.2 Const: Other: Gen: awake alert x3 ,no acute resp.distress HEENT: sclera anicteric, moist mucus membranes Neck: supple, no?JVD Lungs: diminished breath sounds,no tachypnea, no crackles Heart: regular?rate and rhythm,no murmurs Abd: soft, obese,non-tender, bowel sounds audible Ext: discoloration both legs, no edema Neuro: alert and oriented x3, no focal findings Psych: appropriate affect Objective Data Active Medications Acetaminophen (Acetaminophen 325 Mg Tablet) 650 mg PO Q6H PRN PRN Reason: Pain, Mild (Pain Scale 1-3) Acetaminophen/Butalbital/Caffeine (Butalb/Acetamin/Caff 50/325/40 Tablet) 1 tab PO Q6H PRN PRN Reason: Headache Albuterol/Ipratropium (Albuterol/Iprat 2.5/0.5mg 3 Ml Ampul.Neb) 3 ml INHALE RQ4H PRN PRN Reason: Shortness of Breath/Wheezing Amlodipine Besylate (Amlodipine Besylate 5 Mg Tablet) 5 mg PO DAILY [facility]; Protocol Last Admin: 11/29/22 08:35 Dose: Not Given Documented By: LAKISHA Non-Admin Reason: Physician Held Med Artificial Tears (Artificial Tears 15 Ml Drops) 1 drop EYE-BOTH BID [facility] Last Admin: 11/29/22 09:23 Dose: 1 drop Documented By: LAKISHA Atorvastatin Calcium (Atorvastatin Calcium 20 Mg Tablet) 20 mg PO BEDTIME [facility] Last Admin: 11/28/22 20:54 Dose: 20 mg Documented By: JODIE Brimonidine Tartrate (Brimonidine Tartrate 0.2% Oph 5 Ml Bottle) 1 drop EYE-RIGHT BID [facility] Last Admin: 11/29/22 09:23 Dose: 1 drop Documented By: LAKISHA Bumetanide (Bumetanide 1 Mg/4 Ml Vial) 2 mg IVPUSH BID@0900,1700 [facility]; Protocol Last Admin: 11/29/22 16:59 Dose: 2 mg Documented By: RK Chlordiazepoxide HCl (Chlordiazepoxide Hcl 5 Mg Capsule) 10 mg PO BEDTIME [facility] Last Admin: 11/28/22 20:54 Dose: 10 mg Documented By: JODIE Dextrose (Dextrose 50 % 25 Gm/50 Ml Syringe) 25 gm IVPUSH Q15M PRN; Protocol PRN Reason: per Hypoglycemia Standing Ord. Docusate Sodium (Docusate Sodium 100 Mg Capsule) 100 mg PO DAILY PRN PRN Reason: Constipation Dorzolamide HCl (Dorzolamide Hcl 2 % Ophth Mona 10 Ml Drpbtl) 1 drop EYE-RIGHT BID [facility] Last Admin: 11/29/22 09:22 Dose: 1 drop Documented By: LAKISHA Doxycycline Monohydrate (Doxycycline Monohydrate 100 Mg Capsule) 100 mg PO Q12H [facility] Escitalopram Oxalate (Escitalopram Oxalate 20 Mg Tablet) 20 mg PO DAILY [facility] Last Admin: 11/29/22 08:31 Dose: 20 mg Documented By: LAKISHA Glucose (Glucose Gel 15 Gm Gel..Gram.) 15 gm PO Q15M PRN; Protocol PRN Reason: per Hypoglycemia Standing Ord. Heparin Sodium (Porcine) (Heparin Sodium,Porcine 5,000 Unit/Ml Vial) 5,000 unit SUBCUT Q12H [facility] Last Admin: 11/29/22 09:24 Dose: 5,000 unit Documented By: LAKISHA Hydroxychloroquine Sulfate (Hydroxychloroquine Sulfate 200 Mg Tablet) 200 mg PO BID [facility] Last Admin: 11/29/22 08:35 Dose: 200 mg Documented By: LAKISHA Meropenem 1 gm/ Sodium (Chloride) 100 mls @ 200 mls/hr IV Q12H [facility] Last Infusion: 11/29/22 11:09 Dose: 200 mls/hr Documented By: LAKISHA Vancomycin HCl 500 mg/ Sodium (Chloride) 110 mls @ 110 mls/hr IV Q24H [facility] Last Admin: 11/29/22 13:46 Dose: Not Given Documented By: LAKISHA Non-Admin Reason: No Access Insulin Glargine (Insulin Glargine,Hum.Rec.Anlog 100 Unit/Ml 10 Ml Vial) 16 unit SUBCUT BID [facility] Last Admin: 11/29/22 08:27 Dose: 16 unit Documented By: LAKISHA Insulin Human Lispro (Insulin Lispro 100 Unit/Ml 3 Ml Vial) 0 unit SUBCUT QIDACHS [facility]; Protocol Last Admin: 11/29/22 17:01 Dose: Not Given Documented By: RK Non-Admin Reason: No Access Latanoprost (Latanoprost 0.005 % Ophth Mona 2.5 Ml Drops) 1 drop EYE-BOTH BEDTIME [facility] Last Admin: 11/28/22 21:39 Dose: 1 drop Documented By: JODIE Levothyroxine Sodium (Levothyroxine Sodium 175 Mcg Tablet) 175 mcg PO DAILY@0600 [facility] Last Admin: 11/29/22 05:44 Dose: 175 mcg Documented By: JODIE Magnesium Oxide (Magnesium Oxide 400 Mg Tablet) 400 mg PO DAILY [facility] Last Admin: 11/29/22 08:31 Dose: 400 mg Documented By: LAKISHA Metoprolol Tartrate (Metoprolol Tartrate 50 Mg Tablet) 50 mg PO BID [facility]; Protocol Last Admin: 11/29/22 08:31 Dose: 50 mg Documented By: LAKISHA Pt Own ( Acalabrutinib Maleate [Calquence ( Acalabrutinib Mal)] 100 Mg Tab 100 mg PO BID [facility] Last Admin: 11/29/22 09:22 Dose: 100 mg Documented By: LAKISHA Ondansetron HCl (Ondansetron Hcl 4 Mg/2 Ml Vial) 4 mg IVPUSH Q8H PRN PRN Reason: Nausea and Vomiting Pharmacy Consult (Consult Rx Vancomycin Dosing) 1 each MISCELLANE DAILY PRN PRN Reason: Consult order Potassium Chloride (Potassium Chloride Er 20 Meq Tab.Er.Prt) 40 meq PO DAILY [facility] Last Admin: 11/29/22 08:30 Dose: 40 meq Documented By: LAKISHA Prednisolone Acetate (Prednisolone Acetate 1 % Oph Susp 5 Ml Drpbtl) 1 drop EYE-RIGHT DAILY [facility] Last Admin: 11/29/22 11:45 Dose: 1 drop Documented By: LAKISHA Sitagliptin Phosphate (Sitagliptin Phosphate 100 Mg Tablet) 100 mg PO DAILY [facility] Last Admin: 11/29/22 08:31 Dose: 100 mg Documented By: LAKISHA Sodium Chloride (0.9 % Sodium Chloride Flush 3 Ml Syringe) 3 ml IVFLUSH QSHIFT [facility] Last Admin: 11/29/22 17:01 Dose: Not Given Documented By: RK Non-Admin Reason: No Access Timolol Maleate (Timolol Maleate 0.5 % Oph Mona 5 Ml Drbtl) 1 drop EYE-RIGHT BID [facility] Last Admin: 11/29/22 09:22 Dose: 1 drop Documented By: LAKISHA Tiotropium [place] (Tiotropium [place] 2.5 Mcg Inhaler) 1 puff INHALE RDAILY [facility] Last Admin: 11/29/22 08:03 Dose: 1 puff Documented By: REANNA Labs 11/29/22 06:23 11/29/22 06:23 Labs: Laboratory Results - last 24 hr 11/28/22 11/29/22 11/29/22 20:35 06:23 06:23 MCV MCH MCHC RDW Plt Count MPV Immature Gran % (Auto) Neut % (Auto) Lymph % (Auto) [place] % (Auto) Eos % (Auto) Baso % (Auto) Lymph # (Auto) [place] # (Auto) Eos # (Auto) Baso # (Auto) Abs Immat Gran (auto) Absolute Neuts (auto) Absolute Nucleated RBC Nucleated RBC % (auto) Smear Tech's Comments Anion Gap 16 Estim Creat Clear Calc 29.9 Estimated GFR 23 POC Glucose 408 H* Fasting Glucose 478 H* Calcium 8.3 L D Total Bilirubin 0.3 AST 6 ALT 7 Alkaline Phosphatase 56 Total Protein 5.7 L Albumin 2.9 L Random Vancomycin 21.5 H 11/29/22 11/29/22 11/29/22 06:23 07:21 11:11 MCV 82.0 MCH 25.6 L MCHC 31.2 RDW 16.8 H Plt Count 246 MPV 12.6 H Immature Gran % (Auto) 0.9 H Neut % (Auto) 93.1 H Lymph % (Auto) 3.6 L [place] % (Auto) 2.2 Eos % (Auto) 0.1 Baso % (Auto) 0.1 Lymph # (Auto) 0.6 L [place] # (Auto) 0.3 Eos # (Auto) 0.0 Baso # (Auto) 0.0 Abs Immat Gran (auto) 0.13 H Absolute Neuts (auto) 14.2 H Absolute Nucleated RBC 0.000 Nucleated RBC % (auto) 0.0 Smear Tech's Comments VERIFIED Anion Gap Estim Creat Clear Calc Estimated GFR POC Glucose 447 H* 470 H* Fasting Glucose Calcium Total Bilirubin AST ALT Alkaline Phosphatase Total Protein Albumin Random Vancomycin 11/29/22 15:56 MCV MCH MCHC RDW Plt Count MPV Immature Gran % (Auto) Neut % (Auto) Lymph % (Auto) [place] % (Auto) Eos % (Auto) Baso % (Auto) Lymph # (Auto) [place] # (Auto) Eos # (Auto) Baso # (Auto) Abs Immat Gran (auto) Absolute Neuts (auto) Absolute Nucleated RBC Nucleated RBC % (auto) Smear Tech's Comments Anion Gap Estim Creat Clear Calc Estimated GFR POC Glucose 405 H* Fasting Glucose Calcium Total Bilirubin AST ALT Alkaline Phosphatase Total Protein Albumin Random Vancomycin Microbiology Microbiology Results: Microbiology 11/26/22 Unknown Urine Culture - Final Urine Catheterized - Straight Catheter Escherichia coli Methicillin Res Staph Aureus 11/26/22 20:17 Blood Culture - Final Blood - Venous Methicillin Res Staph Aureus 11/27/22 22:28 Blood Culture - Preliminary Blood - Venous No growth after 24 hours. 11/27/22 22:14 Blood Culture - Preliminary Blood - Venous No growth after 24 hours. 11/26/22 20:18 Blood Culture - Preliminary Blood - Venous No growth after 48 hours. Assessment and Plan (1) Acute UTI: Status: Acute (2) Acute kidney injury superimposed on chronic kidney disease: Status: Acute Plan 72-year-old female with past medical history of COPD, CHF, REJI, comes into the hospital with complaints of shortness of breath; discussed with niece. States shortness of breath came on gradually with dry cough; patient appetite decreased as cough increased. Urine positive for E coli ESBL 1.Acute UTI(E coli ESBL)/ MRSA bacteremia urine culture growing E coli ESBL positive and MRSA, 1/2 blood culture also positive for MRSA - on IV meropenem/vancomycin (3) patient has no IV access ordered midline placement - chronic leukocytosis likely due to steroid, await final cultures , case discussed with ID she recommend to continue current antibiotics 2.LEO and CKD - creatinine remains elevated likely due to soft blood pressures and IV diuretics, will change Bumex to by mouth 2 mg daily DC IV Bumex b.i.d. follow BMP renal ultrasound showed no obstruction case discussed with Nephrology 3..Acute on ch hypoxic respiratory failure -will switch p.o. Bumex 2 mg daily, appears euvolemic -soft bp ,titrate O2 as tolerated 4.Diabetes type 2 - elevated blood sugars in 400s, likely due to high-dose steroids will DC IV steroids since no indication, adjust lispro correction scale continue Lantus b.i.d. 5. history of COPD no acute exacerbation continue home inhalers DC IV steroids 6. hypertension noted to have soft blood pressure,on metoprolol 50 mg b.i.d. and Norvasc 10 mg will hold Norvasc today and with juice dose to Norvasc 5 mg daily follow BP closely 7. on chronic prednisone currently on IV Solu Medrol will DC and placed back on home dose of prednisone starting tomorrow. 8. morbid obesity, recommend low-calorie diet. 9. hypothyroidism continue Synthroid. Heparin subQ Full code Will require ongoing hospitalization for treatment of E coli ESBL UTI/bacteremia with IV antibiotics. Time Spent With Patient Time: Total time managing care of this patient today ____ minutes. Quality Stroke Does the patient have a stroke diagnosis?: No VTE Prior VTE?: No VTE Risk Level:: Medical - moderate - high VTE Device Contraindication: Treatment Not Indicated VTE Drug Contraindication: N/A - Med Ordered
[2022-11-29] MEDS: Doxycycline Monohydrate 100 MG CAPSULE PO (18:29)
[2022-11-29 20:42] LABS: Glucose, Whole Blood 427 mg/dL (60-115)
[2022-11-29] MEDS: chlordiazePOXIDE HCl 5 MG CAPSULE 10 MG PO (23:09)
[2022-11-29] MEDS: Atorvastatin Calcium 20 MG TABLET PO (23:09)
[2022-11-29] MEDS: Latanoprost 0.005 % Ophth Sol 2.5 ML DROPS 1 DROP EYE-BOTH (23:11)
[2022-11-30 03:16] VITALS: BP 118/47; PULSE 62; RESP 20; TEMP 36.3; O2SAT 100
[2022-11-30 06:00] VITALS: BMI 46.7
[2022-11-30] MEDS: Doxycycline Monohydrate 100 MG CAPSULE PO ×2 (06:07→17:24)
[2022-11-30] MEDS: Levothyroxine Sodium 175 MCG TABLET PO (06:07)
[2022-11-30 06:08] LABS: Basophils Percent Auto 0.2 % (0-2); Eosinophils Percent Auto 0.2 % (0-4); Hemoglobin 8.9 g/dl (12.0-16.0); MANUAL DIFF FLAG SCAN; Mean Corpuscular Hemoglobin 25.1 pg (27.0-33.0); Mean Corpuscular Volume 82.8 fL (80.0-98.0); PLT CLUMP 1; SCAN SMEAR FLAG 1
[2022-11-30 06:10] LABS: Hematocrit 29.3 % (37.0-47.0); Lymphocytes Absolute Auto 1.9 X10*3/uL (1.2-4.9); Lymphocytes Percent Auto 9.8 % (20-40); Mean Corpuscular HGB Conc 30.4 g/dl (31.0-35.0); Mean Platelet Volume 12.5 fL (9.4-12.3); Monocytes Absolute Auto 2.1 X10*3/uL (0.1-1.2); Monocytes Percent Auto 10.6 % (2-11); Neutrophils Absolute Auto 15.2 x10*3/uL (2.0-8.3); Neutrophils Percent Auto 78.2 % (45-73); Red Blood Count 3.54 X10*6/uL (4.20-5.50); Red Cell Distribution Width 16.7 % (11.0-16.0)
[2022-11-30 06:11] LABS: Platelet Count 195 X10*3/uL (160-400); White Blood Count 19.5 X10*3/uL (4.8-10.8)
[2022-11-30 06:24] LABS: Alanine Aminotransferase 9 U/L (0-31); Alkaline Phosphatase 60 U/L (39-117); Anion Gap 15 (12-20); Aspartate Amino Transferase 11 U/L (5-31); Bilirubin Total 0.3 mg/dL (0.0-1.0); Blood Urea Nitrogen 92 mg/dL (9-16); Calcium 8.6 mg/dL (8.4-10.2); Carbon Dioxide 21 mmol/L (22-29); Chloride 103 mmol/L (96-108); Creatinine Clr Calc Pharmacy 35.4; Estimated Glomerular Filt Rate 28; Glucose Fasting 253 mg/dL (60-99); Potassium 4.5 mmol/L (3.3-5.1); Sodium 134 mmol/L (135-145); Total Protein 5.9 g/dL (6.5-8.0)
[2022-11-30 06:31] LABS: SLIDE REVIEW VERIFIED
[2022-11-30 07:15] LABS: Glucose, Whole Blood 231 mg/dL (60-115)
[2022-11-30 07:24] VITALS: BP 101/48; PULSE 73; RESP 20; TEMP 36.2; O2SAT 100
[2022-11-30] MEDS: Insulin Lispro 100 UNIT/ML 3 ML VIAL SUBCUT ×3 (07:58→20:43)
[2022-11-30] MEDS: Insulin Glargine,Hum.rec.anlog 100 UNIT/ML 10 ML VIAL 16 UNIT SUBCUT ×2 (07:59→20:39)
[2022-11-30] MEDS: Potassium Chloride ER 20 MEQ TAB.ER.PRT 40 MEQ PO (07:59)
[2022-11-30] MEDS: SITagliptin Phosphate 100 MG TABLET PO (08:00)
[2022-11-30] MEDS: amLODIPine Besylate 5 MG TABLET PO (08:00)
[2022-11-30] MEDS: Hydroxychloroquine Sulfate 200 MG TABLET PO ×2 (08:00→20:47)
[2022-11-30] MEDS: Metoprolol Tartrate 50 MG TABLET PO ×2 (08:00→20:37)
[2022-11-30] MEDS: Artificial Tears 15 ML DROPS 1 DROP EYE-BOTH ×2 (08:00→20:48)
[2022-11-30] MEDS: Bumetanide 1 MG TABLET 2 MG PO (08:00)
[2022-11-30] MEDS: Escitalopram Oxalate 20 MG TABLET PO (08:00)
[2022-11-30] MEDS: Magnesium Oxide 400 MG TABLET PO (08:00)
[2022-11-30] MEDS: Dorzolamide HCl 2 % Ophth Sol 10 ML DRPBTL 1 DROP EYE-RIGHT ×2 (08:01→20:42)
[2022-11-30] MEDS: timoloL maleate 0.5 % Oph Sol 5 ML DRBTL 1 DROP EYE-RIGHT ×2 (08:01→20:48)
[2022-11-30] MEDS: prednisoLONE Acetate 1 % Oph Susp 5 ML DRPBTL 1 DROP EYE-RIGHT (08:01)
[2022-11-30] MEDS: Brimonidine Tartrate 0.2% Oph 5 ML BOTTLE 1 DROP EYE-RIGHT ×2 (08:01→20:36)
[2022-11-30 08:05] VITALS: PULSE 72; RESP 20; O2SAT 95
--- NOTE | 2022-11-30 10:42 | PM.PNNEP ---
Subjective Subjective Date of Service: 12/01/22 Interval history: Events noted. Feeling better. Physical Exam Vital Signs: Vital Signs: Last Vital Signs Temp 97.1 F 11/30/22 07:24 Pulse 72 11/30/22 08:05 Resp 20 11/30/22 08:05 BP 101/48 L 11/30/22 07:24 Pulse Ox 100 11/30/22 07:24 O2 Del Method Room Air 11/30/22 07:24 Oxygen Flow Rate 2 11/26/22 17:10 BMI result Body Mass Index 46.7 Const: Other: Gen: awake alert x3 ,no acute resp.distress HEENT: sclera anicteric, moist mucus membranes Neck: supple, no?JVD Lungs: diminished breath sounds,no tachypnea, no crackles Heart: regular?rate and rhythm,no murmurs Abd: soft, obese,non-tender, bowel sounds audible Ext: discoloration both legs Skin:? multiple areas of ecchymosis, Neuro: alert and oriented x3, no focal findings Psych: appropriate affect Objective Data Labs 11/30/22 05:50 11/30/22 05:50 Labs: Laboratory Results - last 24 hr 11/29/22 11/29/22 11/29/22 11:11 15:56 20:38 WBC RBC Hgb Hct MCV MCH MCHC RDW Plt Count MPV Immature Gran % (Auto) Neut % (Auto) Lymph % (Auto) [place] % (Auto) Eos % (Auto) Baso % (Auto) Lymph # (Auto) [place] # (Auto) Eos # (Auto) Baso # (Auto) Abs Immat Gran (auto) Absolute Neuts (auto) Absolute Nucleated RBC Nucleated RBC % (auto) Smear Tech's Comments Sodium Potassium Chloride Carbon Dioxide Anion Gap BUN Creatinine Estim Creat Clear Calc Estimated GFR POC Glucose 470 H* 405 H* 427 H* Fasting Glucose Calcium Total Bilirubin AST ALT Alkaline Phosphatase Total Protein Albumin 11/30/22 11/30/22 11/30/22 05:50 05:50 07:09 WBC 19.5 H RBC 3.54 L Hgb 8.9 L Hct 29.3 L MCV 82.8 MCH 25.1 L MCHC 30.4 L RDW 16.7 H Plt Count 195 MPV 12.5 H Immature Gran % (Auto) 1.0 H Neut % (Auto) 78.2 H Lymph % (Auto) 9.8 L [place] % (Auto) 10.6 Eos % (Auto) 0.2 Baso % (Auto) 0.2 Lymph # (Auto) 1.9 [place] # (Auto) 2.1 H Eos # (Auto) 0.0 Baso # (Auto) 0.0 Abs Immat Gran (auto) 0.20 H Absolute Neuts (auto) 15.2 H Absolute Nucleated RBC 0.000 Nucleated RBC % (auto) 0.0 Smear Tech's Comments VERIFIED Sodium 134 L Potassium 4.5 Chloride 103 Carbon Dioxide 21 L Anion Gap 15 BUN 92 H Creatinine 1.81 H Estim Creat Clear Calc 35.4 Estimated GFR 28 POC Glucose 231 H Fasting Glucose 253 H Calcium 8.6 Total Bilirubin 0.3 AST 11 ALT 9 Alkaline Phosphatase 60 Total Protein 5.9 L Albumin 3.0 L Microbiology Microbiology Results: Microbiology 11/27/22 22:28 Blood - Venous Blood Culture - Preliminary No growth after 48 hours. 11/27/22 22:14 Blood - Venous Blood Culture - Preliminary No growth after 48 hours. 11/26/22 Unknown Urine Catheterized - Straight Catheter Urine Culture - Final Escherichia coli Methicillin Res Staph Aureus 11/26/22 20:17 Blood - Venous Blood Culture - Final Methicillin Res Staph Aureus 11/26/22 20:18 Blood - Venous Blood Culture - Preliminary No growth after 48 hours. Procedures Date of Service Date of Service: 12/01/22 Assessment & Plan Assessment and plan (1) Acute kidney injury superimposed on chronic kidney disease: Status: Acute Plan LEO superimposed on CKD. No evidence of obstruction based on renal ultrasonogram. Probably has tubular injury. Glomerular nephritis or interstitial disease cannot be ruled out yet. Had evidence of fluid overload. improved with IV diuretics. Creatinine is improved to 1.8. Plan Continue to cautiously diurese her. Keep on p.o. Bumex 2 mg q.d. and watch Keep output more than intake. Continue to avoid nephrotoxic agents. Time Spent With Patient Time: Total time managing care of this patient today ____ minutes. Progress Note: Quality Stroke Does the patient have a stroke diagnosis?: No
[2022-11-30 10:59] LABS: Glucose, Whole Blood 239 mg/dL (60-115)
[2022-11-30 11:01] VITALS: BP 97/49; PULSE 59; RESP 20; TEMP 36.8; O2SAT 97
--- NOTE | 2022-11-30 14:25 | P.PNIM_ITS ---
Subjective Subjective Date of Service: 11/30/22 Interval History: Resting comfortably in bed offers no acute complaints denies urinary symptoms of urgency frequency, denies fever, no chills, no headache no lightheadedness or dizziness, tolerating diet no nausea no vomiting no abdominal pain no other acute events overnight. Review of Systems All other system reviewed and negative. Physical Exam Vital Signs: Vital Signs: Last Vital Signs Temp 98.3 F 11/30/22 11:01 Pulse 59 11/30/22 11:01 Resp 20 11/30/22 11:01 BP 97/49 L 11/30/22 11:01 Pulse Ox 97 11/30/22 11:01 O2 Del Method Room Air 11/30/22 11:01 Oxygen Flow Rate 2 11/26/22 17:10 BMI result Body Mass Index 46.7 Const: Other: Gen: awake alert x3 ,no acute resp.distress HEENT: sclera anicteric, moist mucus membranes Neck: supple, no?JVD Lungs: diminished breath sounds,no tachypnea, no crackles Heart: regular?rate and rhythm,no murmurs Abd: soft, obese,non-tender, bowel sounds audible Ext: discoloration both legs, no edema Neuro: alert and oriented x3, no focal findings Psych: appropriate affect Objective Data Active Medications Acetaminophen (Acetaminophen 325 Mg Tablet) 650 mg PO Q6H PRN PRN Reason: Pain, Mild (Pain Scale 1-3) Acetaminophen/Butalbital/Caffeine (Butalb/Acetamin/Caff 50/325/40 Tablet) 1 tab PO Q6H PRN PRN Reason: Headache Albuterol/Ipratropium (Albuterol/Iprat 2.5/0.5mg 3 Ml Ampul.Neb) 3 ml INHALE RQ4H PRN PRN Reason: Shortness of Breath/Wheezing Amlodipine Besylate (Amlodipine Besylate 5 Mg Tablet) 5 mg PO DAILY [facility]; Protocol Last Admin: 11/30/22 08:00 Dose: 5 mg Documented By: RK Artificial Tears (Artificial Tears 15 Ml Drops) 1 drop EYE-BOTH BID [facility] Last Admin: 11/30/22 08:00 Dose: 1 drop Documented By: RK Atorvastatin Calcium (Atorvastatin Calcium 20 Mg Tablet) 20 mg PO BEDTIME [facility] Last Admin: 11/29/22 23:09 Dose: 20 mg Documented By: HOANG Brimonidine Tartrate (Brimonidine Tartrate 0.2% Oph 5 Ml Bottle) 1 drop EYE- RIGHT BID [facility] Last Admin: 11/30/22 08:01 Dose: 1 drop Documented By: RK Bumetanide (Bumetanide 1 Mg Tablet) 2 mg PO DAILY [facility]; Protocol Last Admin: 11/30/22 08:00 Dose: 2 mg Documented By: RK Chlordiazepoxide HCl (Chlordiazepoxide Hcl 5 Mg Capsule) 10 mg PO BEDTIME [facility] Last Admin: 11/29/22 23:09 Dose: 10 mg Documented By: HOANG Dextrose (Dextrose 50 % 25 Gm/50 Ml Syringe) 25 gm IVPUSH Q15M PRN; Protocol PRN Reason: per Hypoglycemia Standing Ord. Docusate Sodium (Docusate Sodium 100 Mg Capsule) 100 mg PO DAILY PRN PRN Reason: Constipation Dorzolamide HCl (Dorzolamide Hcl 2 % Ophth Mona 10 Ml Drpbtl) 1 drop EYE-RIGHT BID [facility] Last Admin: 11/30/22 08:01 Dose: 1 drop Documented By: RK Doxycycline Monohydrate (Doxycycline Monohydrate 100 Mg Capsule) 100 mg PO Q12H [facility] Last Admin: 11/30/22 06:07 Dose: 100 mg Documented By: HOANG Escitalopram Oxalate (Escitalopram Oxalate 20 Mg Tablet) 20 mg PO DAILY [facility] Last Admin: 11/30/22 08:00 Dose: 20 mg Documented By: RK Glucose (Glucose Gel 15 Gm Gel..Gram.) 15 gm PO Q15M PRN; Protocol PRN Reason: per Hypoglycemia Standing Ord. Heparin Sodium (Porcine) (Heparin Sodium,Porcine 5,000 Unit/Ml Vial) 5,000 unit SUBCUT Q12H [facility] Last Admin: 11/30/22 11:56 Dose: Not Given Documented By: RK Non-Admin Reason: See Note Comments: scheduled for procedure today Hydroxychloroquine Sulfate (Hydroxychloroquine Sulfate 200 Mg Tablet) 200 mg PO BID [facility] Last Admin: 11/30/22 08:00 Dose: 200 mg Documented By: RK Vancomycin HCl 500 mg/ Sodium (Chloride) 110 mls @ 110 mls/hr IV Q24H [facility] Last Admin: 11/29/22 13:46 Dose: Not Given Documented By: LAKISHA Non-Admin Reason: No Access Meropenem 1 gm/ Sodium (Chloride) 100 mls @ 200 mls/hr IV Q12H [facility] Insulin Glargine (Insulin Glargine,Hum.Rec.Anlog 100 Unit/Ml 10 Ml Vial) 16 unit SUBCUT BID [facility] Last Admin: 11/30/22 07:59 Dose: 16 unit Documented By: RK Insulin Human Lispro (Insulin Lispro 100 Unit/Ml 3 Ml Vial) 0 unit SUBCUT QIDACHS [facility]; Protocol Last Admin: 11/30/22 12:14 Dose: Not Given Documented By: RK Non-Admin Reason: NPO Latanoprost (Latanoprost 0.005 % Ophth Mona 2.5 Ml Drops) 1 drop EYE-BOTH BEDTIME [facility] Last Admin: 11/29/22 23:11 Dose: 1 drop Documented By: HOANG Levothyroxine Sodium (Levothyroxine Sodium 175 Mcg Tablet) 175 mcg PO DAILY@0600 [facility] Last Admin: 11/30/22 06:07 Dose: 175 mcg Documented By: HOANG Magnesium Oxide (Magnesium Oxide 400 Mg Tablet) 400 mg PO DAILY [facility] Last Admin: 11/30/22 08:00 Dose: 400 mg Documented By: RK Metoprolol Tartrate (Metoprolol Tartrate 50 Mg Tablet) 50 mg PO BID [facility]; Protocol Last Admin: 11/30/22 08:00 Dose: 50 mg Documented By: RK Pt Own ( Acalabrutinib Maleate [Calquence ( Acalabrutinib Mal)] 100 Mg Tab 100 mg PO BID [facility] Last Admin: 11/30/22 07:59 Dose: 100 mg Documented By: RK Ondansetron HCl (Ondansetron Hcl 4 Mg/2 Ml Vial) 4 mg IVPUSH Q8H PRN PRN Reason: Nausea and Vomiting Pharmacy Consult (Consult Rx Vancomycin Dosing) 1 each MISCELLANE DAILY PRN PRN Reason: Consult order Potassium Chloride (Potassium Chloride Er 20 Meq Tab.Er.Prt) 40 meq PO DAILY [facility] Last Admin: 11/30/22 07:59 Dose: 40 meq Documented By: RK Prednisolone Acetate (Prednisolone Acetate 1 % Oph Susp 5 Ml Drpbtl) 1 drop EYE-RIGHT DAILY [facility] Last Admin: 11/30/22 08:01 Dose: 1 drop Documented By: RK Sitagliptin Phosphate (Sitagliptin Phosphate 100 Mg Tablet) 100 mg PO DAILY [facility] Last Admin: 11/30/22 08:00 Dose: 100 mg Documented By: RK Sodium Chloride (0.9 % Sodium Chloride Flush 3 Ml Syringe) 3 ml IVFLUSH QSHIFT [facility] Last Admin: 11/30/22 08:08 Dose: Not Given Documented By: RK Non-Admin Reason: No Access Timolol Maleate (Timolol Maleate 0.5 % Oph Mona 5 Ml Drbtl) 1 drop EYE-RIGHT BID [facility] Last Admin: 11/30/22 08:01 Dose: 1 drop Documented By: RK Tiotropium [place] (Tiotropium [place] 2.5 Mcg Inhaler) 1 puff INHALE RDAILY [facility] Last Admin: 11/30/22 08:03 Dose: 1 puff Documented By: REANNA Labs 11/30/22 05:50 11/30/22 05:50 Labs: Laboratory Results - last 24 hr 11/29/22 11/29/22 11/30/22 15:56 20:38 05:50 MCV MCH MCHC RDW Plt Count MPV Immature Gran % (Auto) Neut % (Auto) Lymph % (Auto) [place] % (Auto) Eos % (Auto) Baso % (Auto) Lymph # (Auto) [place] # (Auto) Eos # (Auto) Baso # (Auto) Abs Immat Gran (auto) Absolute Neuts (auto) Absolute Nucleated RBC Nucleated RBC % (auto) Smear Tech's Comments Anion Gap 15 Estim Creat Clear Calc 35.4 Estimated GFR 28 POC Glucose 405 H* 427 H* Fasting Glucose 253 H Calcium 8.6 Total Bilirubin 0.3 AST 11 ALT 9 Alkaline Phosphatase 60 Total Protein 5.9 L Albumin 3.0 L 11/30/22 11/30/22 11/30/22 05:50 07:09 10:53 MCV 82.8 MCH 25.1 L MCHC 30.4 L RDW 16.7 H Plt Count 195 MPV 12.5 H Immature Gran % (Auto) 1.0 H Neut % (Auto) 78.2 H Lymph % (Auto) 9.8 L [place] % (Auto) 10.6 Eos % (Auto) 0.2 Baso % (Auto) 0.2 Lymph # (Auto) 1.9 [place] # (Auto) 2.1 H Eos # (Auto) 0.0 Baso # (Auto) 0.0 Abs Immat Gran (auto) 0.20 H Absolute Neuts (auto) 15.2 H Absolute Nucleated RBC 0.000 Nucleated RBC % (auto) 0.0 Smear Tech's Comments VERIFIED Anion Gap Estim Creat Clear Calc Estimated GFR POC Glucose 231 H 239 H Fasting Glucose Calcium Total Bilirubin AST ALT Alkaline Phosphatase Total Protein Albumin Microbiology Microbiology Results: Microbiology 11/27/22 22:28 Blood Culture - Preliminary Blood - Venous No growth after 48 hours. 11/27/22 22:14 Blood Culture - Preliminary Blood - Venous No growth after 48 hours. Assessment and Plan (1) Acute UTI: Status: Acute (2) Acute kidney injury superimposed on chronic kidney disease: Status: Acute Plan 72-year-old female with past medical history of COPD, CHF, REJI, comes into the hospital with complaints of shortness of breath; discussed with niece. States shortness of breath came on gradually with dry cough; patient appetite decreased as cough increased. Urine positive for E coli ESBL 1.Acute UTI(E coli ESBL)/ MRSA bacteremia urine culture growing E coli ESBL positive and MRSA, 1/2 blood culture also positive for MRSA - on IV meropenem/vancomycin (4) patient has no IV access ordered Chavez catheter - chronic leukocytosis likely due to steroid, repeat blood cultures x2 negative for 48 hours case discussed with ID she recommend 4 weeks of IV vancomycin to cover MRSA and 2 weeks of total IV meropenem for ESBL positive E coli 2.LEO and CKD - creatinine trending down, continue Bumex 2 mg daily renal ultrasound showed no obstruction case discussed with Nephrology they agree with treatment plan. 3..Acute on ch hypoxic respiratory failure -continue Bumex 2 mg daily, appears euvolemic -soft bp ,titrate O2 as tolerated 4.Diabetes type 2 - blood sugars improving now in 200 range, continue lispro correction scale and Lantus b.i.d. 5. history of COPD no acute exacerbation continue home inhalers DC IV steroids 6. hypertension noted to have soft blood pressure,on metoprolol 50 mg b.i.d. and Norvasc 5 mg will DC Norvasc follow BP closely. 7. on chronic prednisone resume home dose of prednisone 6 mg daily 8. morbid obesity, recommend low-calorie diet. 9. hypothyroidism continue Synthroid. Heparin subQ Full code Will require ongoing hospitalization for treatment of E coli ESBL UTI/bacteremia with IV antibiotics. Time Spent With Patient Time: Total time managing care of this patient today ____ minutes. Quality Stroke Does the patient have a stroke diagnosis?: No VTE Prior VTE?: No VTE Risk Level:: Medical - moderate - high VTE Device Contraindication: Treatment Not Indicated VTE Drug Contraindication: N/A - Med Ordered
[2022-11-30 15:44] VITALS: BP 106/41; PULSE 56; RESP 20; TEMP 36.2; O2SAT 97
[2022-11-30] MEDS: 0.9 % Sodium Chloride Flush 3 ML SYRINGE IVFLUSH ×2 (15:44→20:50)
[2022-11-30] MEDS: vancomycin HCL 500 MG in 0.9 % Sodium Chloride 100 ML 110 MG IV (15:44)
[2022-11-30 16:32] LABS: Glucose, Whole Blood 173 mg/dL (60-115)
[2022-11-30 19:20] VITALS: BP 117/46; PULSE 62; RESP 20; TEMP 36.7; O2SAT 97
[2022-11-30 19:53] LABS: Glucose, Whole Blood 212 mg/dL (60-115)
[2022-11-30] MEDS: Acetaminophen 325 MG TABLET 650 MG PO (20:34)
[2022-11-30] MEDS: Atorvastatin Calcium 20 MG TABLET PO (20:35)
[2022-11-30] MEDS: chlordiazePOXIDE HCl 5 MG CAPSULE 10 MG PO (20:36)
[2022-11-30] MEDS: Latanoprost 0.005 % Ophth Sol 2.5 ML DROPS 1 DROP EYE-BOTH (20:48)
[2022-12-01] VITALS (7 sets, daily range): BP systolic 106–128; BP diastolic 42–62; PULSE 53–70; RESP 14–20; TEMP 36.1–37; O2SAT 94–100; BMI 46.9
[2022-12-01] MEDS: Heparin Sodium,Porcine 5,000 UNIT/ML VIAL 5000 UNIT SUBCUT ×2 (00:30→22:11)
[2022-12-01] MEDS: Doxycycline Monohydrate 100 MG CAPSULE PO ×2 (05:26→17:59)
[2022-12-01] MEDS: Levothyroxine Sodium 175 MCG TABLET PO (05:26)
[2022-12-01] MEDS: Acetaminophen 325 MG TABLET 650 MG PO (05:29)
[2022-12-01 07:23] LABS: Anion Gap 14 (12-20); Blood Urea Nitrogen 90 mg/dL (9-16); Calcium 8.4 mg/dL (8.4-10.2); Carbon Dioxide 24 mmol/L (22-29); Chloride 105 mmol/L (96-108); Creatinine Clr Calc Pharmacy 42.2; Estimated Glomerular Filt Rate 33; Glucose Random 135 mg/dL (60-115); Potassium 4.4 mmol/L (3.3-5.1); Sodium 139 mmol/L (135-145)
[2022-12-01 07:45] LABS: Glucose, Whole Blood 133 mg/dL (60-115)
[2022-12-01] MEDS: Hydroxychloroquine Sulfate 200 MG TABLET PO ×2 (09:11→21:15)
[2022-12-01] MEDS: SITagliptin Phosphate 100 MG TABLET PO (09:11)
[2022-12-01] MEDS: Magnesium Oxide 400 MG TABLET PO (09:11)
[2022-12-01] MEDS: Escitalopram Oxalate 20 MG TABLET PO (09:11)
[2022-12-01] MEDS: Bumetanide 1 MG TABLET 2 MG PO (09:11)
[2022-12-01] MEDS: Potassium Chloride ER 20 MEQ TAB.ER.PRT 40 MEQ PO (09:11)
[2022-12-01] MEDS: Dorzolamide HCl 2 % Ophth Sol 10 ML DRPBTL 1 DROP EYE-RIGHT ×2 (09:12→21:16)
[2022-12-01] MEDS: Brimonidine Tartrate 0.2% Oph 5 ML BOTTLE 1 DROP EYE-RIGHT ×2 (09:12→21:17)
[2022-12-01] MEDS: prednisoLONE Acetate 1 % Oph Susp 5 ML DRPBTL 1 DROP EYE-RIGHT (09:12)
[2022-12-01] MEDS: timoloL maleate 0.5 % Oph Sol 5 ML DRBTL 1 DROP EYE-RIGHT ×2 (09:12→21:17)
[2022-12-01] MEDS: Artificial Tears 15 ML DROPS 1 DROP EYE-BOTH ×2 (09:12→21:17)
[2022-12-01] MEDS: 0.9 % Sodium Chloride Flush 3 ML SYRINGE IVFLUSH ×2 (09:13→16:26)
--- NOTE | 2022-12-01 10:38 | PM.PNNEP ---
Subjective Subjective Date of Service: 12/01/22 Interval history: Events noted Physical Exam Vital Signs: Vital Signs: Last Vital Signs Temp 98.6 F 12/01/22 07:28 Pulse 54 12/01/22 08:12 Resp 18 12/01/22 08:12 BP 107/51 L 12/01/22 07:28 Pulse Ox 97 12/01/22 07:28 O2 Del Method Room Air 12/01/22 07:28 Oxygen Flow Rate 2 11/26/22 17:10 BMI result Body Mass Index 46.9 Const: Other: Gen: awake alert x3 ,no acute resp.distress HEENT: sclera anicteric, moist mucus membranes Neck: supple, no?JVD Lungs: diminished breath sounds,no tachypnea, no crackles Heart: regular?rate and rhythm,no murmurs Abd: soft, obese,non-tender, bowel sounds audible Ext: discoloration both legs Skin:? multiple areas of ecchymosis, Neuro: alert and oriented x3, no focal findings Psych: appropriate affect Objective Data Labs 11/30/22 05:50 12/01/22 06:14 Labs: Laboratory Results - last 24 hr 11/30/22 11/30/22 11/30/22 10:53 16:25 19:48 Sodium Potassium Chloride Carbon Dioxide Anion Gap BUN Creatinine Estim Creat Clear Calc Estimated GFR POC Glucose 239 H 173 H 212 H Random Glucose Calcium 12/01/22 12/01/22 06:14 07:33 Sodium 139 Potassium 4.4 Chloride 105 Carbon Dioxide 24 Anion Gap 14 BUN 90 H Creatinine 1.53 H Estim Creat Clear Calc 42.2 Estimated GFR 33 POC Glucose 133 H Random Glucose 135 H Calcium 8.4 Microbiology Microbiology Results: Microbiology 11/27/22 22:28 Blood - Venous Blood Culture - Preliminary No growth after 48 hours. 11/27/22 22:14 Blood - Venous Blood Culture - Preliminary No growth after 48 hours. 11/26/22 Unknown Urine Catheterized - Straight Catheter Urine Culture - Final Escherichia coli Methicillin Res Staph Aureus 11/26/22 20:17 Blood - Venous Blood Culture - Final Methicillin Res Staph Aureus 11/26/22 20:18 Blood - Venous Blood Culture - Preliminary No growth after 48 hours. Procedures Date of Service Date of Service: 12/01/22 Assessment & Plan Assessment and plan (1) Acute kidney injury superimposed on chronic kidney disease: Status: Acute Plan LEO superimposed on CKD. No evidence of obstruction based on renal ultrasonogram. Probably has tubular injury. Glomerular nephritis or interstitial disease cannot be ruled out yet. Had evidence of fluid overload. improved with IV diuretics. Creatinine is improved to 1.8. Plan Continue to cautiously diurese her. Keep on p.o. Bumex 2 mg q.d. and watch Keep output more than intake. Continue to avoid nephrotoxic agents. Time Spent With Patient Time: Total time managing care of this patient today ____ minutes. Progress Note: Quality Stroke Does the patient have a stroke diagnosis?: No
--- NOTE | 2022-12-01 10:41 | MHC.CLN ---
F/U PT WITH INCREASED NUTRITION RISK R/T PRESSURE INJURY PT WITH VARIABLE INTAKE DIET RX: 2000DM 2GM NA-APPROPRIATE RECOMMEND ADDING ENSURE MAX BID TO PROMOTE WOUND HEALING SUPP TO PROVIDE 300KCALS, 60G PROTEIN MONITOR PO INTAKE CLOSELY
[2022-12-01 12:06] LABS: Glucose, Whole Blood 133 mg/dL (60-115)
--- NOTE | 2022-12-01 12:47 | MHC.CM.PN ---
Addendum entered by Vaishnavi Knight RN 12/01/22 15:40: TELEHEALTH APPT W/PCP KENIA MACKENZIE FOR 12/20 AT 3:15PM ADDED TO PRINTABLE DC PLAN Original Note: EMR REVIEWED, PER HOSPITALIST PT WILL NEED [facility]ARA FOR 4 WKS IV VANCO AND 2 WKS TOTAL IV MEROPENEM, SNF REFERRAL UPDATED AND CM AWAITING BED OFFER, CM WILL CONT TO FOLLOW D/C NEES. PER PREVIOUS CONVERSATION W/PT AND NIECE PT WILL ONLY BE WILLING TO GO [place] FOR [place], IF NO OFFERS PT WILL NEED TO RETURN HOME W/HI AND GDTR/NIECE LEARNING.
[2022-12-01 15:00] LABS: Vancomycin Random 18.1 mcg/mL (15-20)
--- NOTE | 2022-12-01 15:27 | HO.PM.IMPN ---
Subjective Subjective Date of Service: 12/01/22 Interval History: Resting comfortably in bed, offers no acute complaints, denies nausea, vomiting ,tolerating diet ,denies shortness of breath, no cough no PND, no orthopnea, no urinary symptoms, no diarrhea. Review of Systems All other system reviewed and negative. Physical Exam Vital Signs: Vital Signs: Last Vital Signs Temp 97.3 F 12/01/22 12:00 Pulse 59 12/01/22 12:00 Resp 20 12/01/22 12:00 BP 115/56 L 12/01/22 12:00 Pulse Ox 100 12/01/22 12:00 O2 Del Method Room Air 12/01/22 12:00 Oxygen Flow Rate 2 11/26/22 17:10 BMI result Body Mass Index 46.9 Const: Other: Gen: awake alert x3 ,no acute resp.distress HEENT: sclera anicteric, moist mucus membranes Neck: supple, no?JVD Lungs: diminished breath sounds,no tachypnea, no crackles Heart: regular?rate and rhythm,no murmurs Abd: soft, obese,non-tender, bowel sounds audible Ext: discoloration both legs, no edema Neuro: alert and oriented x3, no focal findings Psych: appropriate affect Objective Data Active Medications Acetaminophen (Acetaminophen 325 Mg Tablet) 650 mg PO Q6H PRN PRN Reason: Pain, Mild (Pain Scale 1-3) Last Admin: 12/01/22 05:29 Dose: 650 mg Documented By: IRINA Acetaminophen/Butalbital/Caffeine (Butalb/Acetamin/Caff 50/325/40 Tablet) 1 tab PO Q6H PRN PRN Reason: Headache Albuterol/Ipratropium (Albuterol/Iprat 2.5/0.5mg 3 Ml Ampul.Neb) 3 ml INHALE RQ4H PRN PRN Reason: Shortness of Breath/Wheezing Artificial Tears (Artificial Tears 15 Ml Drops) 1 drop EYE-BOTH BID [facility] Last Admin: 12/01/22 09:12 Dose: 1 drop Documented By: RK Atorvastatin Calcium (Atorvastatin Calcium 20 Mg Tablet) 20 mg PO BEDTIME [facility] Last Admin: 11/30/22 20:35 Dose: 20 mg Documented By: IRINA Brimonidine Tartrate (Brimonidine Tartrate 0.2% Oph 5 Ml Bottle) 1 drop EYE-RIGHT BID [facility] Last Admin: 12/01/22 09:12 Dose: 1 drop Documented By: RK Bumetanide (Bumetanide 1 Mg Tablet) 2 mg PO DAILY [facility]; Protocol Last Admin: 12/01/22 09:11 Dose: 2 mg Documented By: RK Chlordiazepoxide HCl (Chlordiazepoxide Hcl 5 Mg Capsule) 10 mg PO BEDTIME [facility] Last Admin: 11/30/22 20:36 Dose: 10 mg Documented By: IRINA Dextrose (Dextrose 50 % 25 Gm/50 Ml Syringe) 25 gm IVPUSH Q15M PRN; Protocol PRN Reason: per Hypoglycemia Standing Ord. Docusate Sodium (Docusate Sodium 100 Mg Capsule) 100 mg PO DAILY PRN PRN Reason: Constipation Dorzolamide HCl (Dorzolamide Hcl 2 % Ophth Mona 10 Ml Drpbtl) 1 drop EYE-RIGHT BID [facility] Last Admin: 12/01/22 09:12 Dose: 1 drop Documented By: RK Doxycycline Monohydrate (Doxycycline Monohydrate 100 Mg Capsule) 100 mg PO Q12H [facility] Last Admin: 12/01/22 05:26 Dose: 100 mg Documented By: IRINA Escitalopram Oxalate (Escitalopram Oxalate 20 Mg Tablet) 20 mg PO DAILY [facility] Last Admin: 12/01/22 09:11 Dose: 20 mg Documented By: RK Glucose (Glucose Gel 15 Gm Gel..Gram.) 15 gm PO Q15M PRN; Protocol PRN Reason: per Hypoglycemia Standing Ord. Heparin Sodium (Porcine) (Heparin Sodium,Porcine 5,000 Unit/Ml Vial) 5,000 unit SUBCUT Q12H [facility] Last Admin: 12/01/22 11:57 Dose: Not Given Documented By: RK Non-Admin Reason: waiting for procedure Hydroxychloroquine Sulfate (Hydroxychloroquine Sulfate 200 Mg Tablet) 200 mg PO BID [facility] Last Admin: 12/01/22 09:11 Dose: 200 mg Documented By: RK Meropenem 1 gm/ Sodium (Chloride) 100 mls @ 200 mls/hr IV Q12H [facility] Last Infusion: 12/01/22 03:41 Dose: 0 mls/hr Documented By: IRINA Vancomycin HCl 500 mg/ Sodium (Chloride) 110 mls @ 110 mls/hr IV Q24H [facility] Last Infusion: 11/30/22 17:14 Dose: 0 mls/hr Documented By: RK Insulin Glargine (Insulin Glargine,Hum.Rec.Anlog 100 Unit/Ml 10 Ml Vial) 16 unit SUBCUT BID [facility] Last Admin: 12/01/22 11:57 Dose: Not Given Documented By: RK Non-Admin Reason: NPO Insulin Human Lispro (Insulin Lispro 100 Unit/Ml 3 Ml Vial) 0 unit SUBCUT QIDACHS [facility]; Protocol Last Admin: 12/01/22 12:06 Dose: Not Given Documented By: RK Non-Admin Reason: No Insulin Coverage Latanoprost (Latanoprost 0.005 % Ophth Mona 2.5 Ml Drops) 1 drop EYE-BOTH BEDTIME [facility] Last Admin: 11/30/22 20:48 Dose: 1 drop Documented By: IRINA Levothyroxine Sodium (Levothyroxine Sodium 175 Mcg Tablet) 175 mcg PO DAILY@0600 [facility] Last Admin: 12/01/22 05:26 Dose: 175 mcg Documented By: IRINA Magnesium Oxide (Magnesium Oxide 400 Mg Tablet) 400 mg PO DAILY [facility] Last Admin: 12/01/22 09:11 Dose: 400 mg Documented By: RK Metoprolol Tartrate (Metoprolol Tartrate 50 Mg Tablet) 50 mg PO BID [facility]; Protocol Last Admin: 12/01/22 09:12 Dose: Not Given Documented By: RK Non-Admin Reason: Decreased Heart Rate Pt Own ( Acalabrutinib Maleate [Calquence ( Acalabrutinib Mal)] 100 Mg Tab 100 mg PO BID [facility] Last Admin: 12/01/22 09:10 Dose: 100 mg Documented By: RK Ondansetron HCl (Ondansetron Hcl 4 Mg/2 Ml Vial) 4 mg IVPUSH Q8H PRN PRN Reason: Nausea and Vomiting Pharmacy Consult (Consult Rx Vancomycin Dosing) 1 each MISCELLANE DAILY PRN PRN Reason: Consult order Potassium Chloride (Potassium Chloride Er 20 Meq Tab.Er.Prt) 40 meq PO DAILY [facility] Last Admin: 12/01/22 09:11 Dose: 40 meq Documented By: RK Prednisolone Acetate (Prednisolone Acetate 1 % Oph Susp 5 Ml Drpbtl) 1 drop EYE-RIGHT DAILY [facility] Last Admin: 12/01/22 09:12 Dose: 1 drop Documented By: RK Sitagliptin Phosphate (Sitagliptin Phosphate 100 Mg Tablet) 100 mg PO DAILY [facility] Last Admin: 12/01/22 09:11 Dose: 100 mg Documented By: RK Sodium Chloride (0.9 % Sodium Chloride Flush 3 Ml Syringe) 3 ml IVFLUSH QSHIFT [facility] Last Admin: 12/01/22 09:13 Dose: 3 ml Documented By: RK Timolol Maleate (Timolol Maleate 0.5 % Oph Mona 5 Ml Drbtl) 1 drop EYE-RIGHT BID [facility] Last Admin: 12/01/22 09:12 Dose: 1 drop Documented By: RK Tiotropium Page (Tiotropium Page 2.5 Mcg Inhaler) 1 puff INHALE RDAILY [facility] Last Admin: 12/01/22 08:12 Dose: 1 puff Documented By: RICHARD Labs 11/30/22 05:50 12/01/22 06:14 Labs: Laboratory Results - last 24 hr 11/30/22 11/30/22 12/01/22 16:25 19:48 06:14 Anion Gap 14 Estim Creat Clear Calc 42.2 Estimated GFR 33 POC Glucose 173 H 212 H Random Glucose 135 H Calcium 8.4 Random Vancomycin 12/01/22 12/01/22 12/01/22 07:33 12:01 14:38 Anion Gap Estim Creat Clear Calc Estimated GFR POC Glucose 133 H 133 H Random Glucose Calcium Random Vancomycin 18.1 Assessment and Plan (1) Acute UTI: Status: Acute (2) Acute kidney injury superimposed on chronic kidney disease: Status: Acute Plan 72-year-old female with past medical history of COPD, CHF, REJI, comes into the hospital with complaints of shortness of breath; discussed with niece. States shortness of breath came on gradually with dry cough; patient appetite decreased as cough increased. Urine positive for E coli ESBL 1.Acute UTI(E coli ESBL)/ MRSA bacteremia urine culture growing E coli ESBL positive and MRSA, 1/2 blood culture also positive for MRSA - on IV meropenem/vancomycin (5) Chavez catheter ordered for 4 weeks of IV vancomycin waiting for final blood culture report to be negative - chronic leukocytosis likely due to steroid, repeat blood cultures x2 negative for 48 hours case discussed with ID she recommend 4 weeks of IV vancomycin to cover MRSA and 2 weeks of total IV meropenem for ESBL positive E coli 2.LEO and CKD - creatinine down to 1.53, continue Bumex 2 mg daily, no evidence of fluid overload or CHF, renal ultrasound showed no obstruction case discussed with Nephrology they agree with treatment plan. 3..Acute on ch hypoxic respiratory failure -continue Bumex 2 mg daily, appears euvolemic, soft bp ,titrate O2 as tolerated 4.Diabetes type 2 - blood sugars improving now in 200 range, continue lispro correction scale and Lantus b.i.d. 5. history of COPD no acute exacerbation continue home inhalers DC IV steroids 6. hypertension blood pressure improved, continue metoprolol 50 mg b.i.d. and Norvasc 5 mg discontinued. 7. on chronic prednisone resume home dose of prednisone 6 mg daily 8. morbid obesity, recommend low-calorie diet. 9. hypothyroidism continue Synthroid. Heparin subQ Full code Will require ongoing hospitalization for treatment of E coli ESBL UTI/bacteremia with IV antibiotics. Time Spent With Patient Time: Total time managing care of this patient today ____ minutes. Quality Stroke Does the patient have a stroke diagnosis?: No VTE Prior VTE?: No VTE Risk Level:: Medical - moderate - high VTE Device Contraindication: Treatment Not Indicated VTE Drug Contraindication: N/A - Med Ordered
[2022-12-01 16:38] LABS: Glucose, Whole Blood 178 mg/dL (60-115)
[2022-12-01] MEDS: Insulin Lispro 100 UNIT/ML 3 ML VIAL SUBCUT ×2 (17:59→21:18)
[2022-12-01] MEDS: Butalb/Acetamin/Caff 50/325/40 TABLET 1 TAB PO (18:19)
[2022-12-01] MEDS: vancomycin HCL 500 MG in 0.9 % Sodium Chloride 100 ML 110 MG IV (18:29)
--- NOTE | 2022-12-01 19:03 | PC.NURSE ---
Patient's HCP Patricia Obando would like to speak with the Physician tomorrow 12/02 re: pt's health status
[2022-12-01 19:46] LABS: Glucose, Whole Blood 265 mg/dL (60-115)
[2022-12-01] MEDS: Metoprolol Tartrate 50 MG TABLET PO (21:15)
[2022-12-01] MEDS: chlordiazePOXIDE HCl 5 MG CAPSULE 10 MG PO (21:15)
[2022-12-01] MEDS: Atorvastatin Calcium 20 MG TABLET PO (21:16)
[2022-12-01] MEDS: Latanoprost 0.005 % Ophth Sol 2.5 ML DROPS 1 DROP EYE-BOTH (21:17)
[2022-12-01] MEDS: Insulin Glargine,Hum.rec.anlog 100 UNIT/ML 10 ML VIAL 16 UNIT SUBCUT (21:18)
[2022-12-02] VITALS (11 sets, daily range): BP systolic 100–133; BP diastolic 36–86; PULSE 58–85; RESP 16–20; TEMP 36.1–36.7; O2SAT 92–100; BMI 46.5
[2022-12-02] MEDS: 0.9 % Sodium Chloride Flush 3 ML SYRINGE IVFLUSH ×4 (03:34→22:04)
[2022-12-02 06:09] LABS: Creatinine Clr Calc Pharmacy 46.6; Estimated Glomerular Filt Rate 38
[2022-12-02] MEDS: Levothyroxine Sodium 175 MCG TABLET PO (06:15)
[2022-12-02] MEDS: Doxycycline Monohydrate 100 MG CAPSULE PO ×2 (06:15→18:36)
--- NOTE | 2022-12-02 07:30 | P.CDIM_ITS ---
PROVIDER RESPONSE TEXT: To clarify, the appropriate diagnosis supported by the clinical indicators: CKD, stage 3a QUERY TEXT: PHYSICIAN'S DOCUMENTATION REQUEST Date of Query: 11/30/2022 08:08 AM EDT Patient Name: Cindy Toney Admit Date: 11/27/2022 Dear Krystal Guillen, A review of the medical record indicates additional documentation may be needed. Please review below and update the documentation accordingly. Clinical Indicators: Per Nephrology Progress Note 11/28/22: LEO superimposed on CKD On 11/28/22: BUN 73 Creatinine 2.17 Est GFR 22 Please clarify which of the following accurately represents the patient's renal status: CKD, stage 1 CKD, stage 2 CKD, stage 3a CKD, stage 3b CKD, stage 4 Other (explain)Clinically unable to determine (explain)Thank you, Vianney Lui RN Use of terms such as suspected, likely, concern for, or probable (associated with a specific diagnosi s that is being evaluated, monitored, or treated as if it exists) are acceptable and can be coded in the inpatient se tting, when documented at the time of discharge. Please use your independent medical judgment in providing your response. THIS QUERY IS PART OF THE PERMANENT MEDICAL RECORD
--- NOTE | 2022-12-02 07:30 | P.CDIM_ITS ---
PROVIDER RESPONSE TEXT: To clarify, the appropriate diagnosis supported by the clinical indicators: Pressure (decubitus) ulcer QUERY TEXT: PHYSICIAN'S DOCUMENTATION REQUEST Date of Query: 12/01/2022 02:26 PM EDT Patient Name: Cindy Toney Admit Date: 11/27/2022 Dear Krystal Guillen, A review of the medical record indicates additional documentation may be needed. Please review below and update the documentation accordingly. Clinical Indicators: Per Nursing Pressure Injury Assessment 11/27/22: left sacrum stage 2 blisters Based on the above, could you please provide further information regarding the type of ulcer/wound: Pressure (decubitus) ulcer Traumatic wound Please specify the location and laterality of the ulcer/wound Other (explain)Clinically unable to determine (explain)Thank you, Vianney Lui RN Use of terms such as suspected, likely, concern for, or probable (associated with a specific diagnosi s that is being evaluated, monitored, or treated as if it exists) are acceptable and can be coded in the inpatient se tting, when documented at the time of discharge. Please use your independent medical judgment in providing your response. THIS QUERY IS PART OF THE PERMANENT MEDICAL RECORD
--- NOTE | 2022-12-02 07:33 | P.CDIM_ITS ---
PROVIDER RESPONSE TEXT: To clarify, the appropriate diagnosis supported by the clinical indicators: Pressure (decubitus) ulcer QUERY TEXT: PHYSICIAN'S DOCUMENTATION REQUEST Date of Query: 12/01/2022 02:28 PM EDT Patient Name: Cindy Toney Admit Date: 11/27/2022 Dear Krystal Guillen, A review of the medical record indicates additional documentation may be needed. Please review below and update the documentation accordingly. Clinical Indicators: Per Nursing Pressure Injury Assessment 11/27/22: Right buttock stage 2 beefy red peeling skin Based on the above, could you please provide further information regarding the type of ulcer/wound: Pressure (decubitus) ulcer Traumatic wound Please specify the location and laterality of the ulcer/wound Other (explain)Clinically unable to determine (explain)Thank you, Vianney Lui RN Use of terms such as suspected, likely, concern for, or probable (associated with a specific diagnosi s that is being evaluated, monitored, or treated as if it exists) are acceptable and can be coded in the inpatient se tting, when documented at the time of discharge. Please use your independent medical judgment in providing your response. THIS QUERY IS PART OF THE PERMANENT MEDICAL RECORD
--- NOTE | 2022-12-02 07:33 | P.CDIM_ITS ---
PROVIDER RESPONSE TEXT: To clarify, the appropriate diagnosis supported by the clinical indicators: Pressure (decubitus) ulcer QUERY TEXT: PHYSICIAN'S DOCUMENTATION REQUEST Date of Query: 12/01/2022 02:31 PM EDT Patient Name: Cindy Toney Admit Date: 11/27/2022 Dear Krystal Guillen, A review of the medical record indicates additional documentation may be needed. Please review below and update the documentation accordingly. Clinical Indicators: Per Nursing Pressure Injury Assessment 12/01/22: Left sacrum stage 2 beefy red Based on the above, could you please provide further information regarding the type of ulcer/wound: Pressure (decubitus) ulcer Traumatic wound Other (explain)Clinically unable to determine (explain)Thank you, Vianney Lui RN Use of terms such as suspected, likely, concern for, or probable (associated with a specific diagnosi s that is being evaluated, monitored, or treated as if it exists) are acceptable and can be coded in the inpatient se tting, when documented at the time of discharge. Please use your independent medical judgment in providing your response. THIS QUERY IS PART OF THE PERMANENT MEDICAL RECORD
[2022-12-02 07:52] LABS: Glucose, Whole Blood 175 mg/dL (60-115)
[2022-12-02] MEDS: Insulin Glargine,Hum.rec.anlog 100 UNIT/ML 10 ML VIAL 16 UNIT SUBCUT ×2 (08:19→20:27)
[2022-12-02] MEDS: Insulin Lispro 100 UNIT/ML 3 ML VIAL SUBCUT ×2 (08:19→20:26)
[2022-12-02] MEDS: Artificial Tears 15 ML DROPS 1 DROP EYE-BOTH ×2 (08:20→20:27)
[2022-12-02] MEDS: Escitalopram Oxalate 20 MG TABLET PO (08:20)
[2022-12-02] MEDS: Magnesium Oxide 400 MG TABLET PO (08:20)
[2022-12-02] MEDS: Potassium Chloride ER 20 MEQ TAB.ER.PRT 40 MEQ PO (08:20)
[2022-12-02] MEDS: timoloL maleate 0.5 % Oph Sol 5 ML DRBTL 1 DROP EYE-RIGHT ×2 (08:20→20:27)
[2022-12-02] MEDS: SITagliptin Phosphate 100 MG TABLET PO (08:20)
[2022-12-02] MEDS: Brimonidine Tartrate 0.2% Oph 5 ML BOTTLE 1 DROP EYE-RIGHT ×2 (08:20→20:27)
[2022-12-02] MEDS: prednisoLONE Acetate 1 % Oph Susp 5 ML DRPBTL 1 DROP EYE-RIGHT (08:21)
[2022-12-02] MEDS: Dorzolamide HCl 2 % Ophth Sol 10 ML DRPBTL 1 DROP EYE-RIGHT ×2 (08:21→20:39)
[2022-12-02] MEDS: Hydroxychloroquine Sulfate 200 MG TABLET PO ×2 (08:42→20:39)
--- NOTE | 2022-12-02 10:10 | P.PNIM_ITS ---
Subjective Subjective Date of Service: 12/02/22 Interval History: offers no acute complaints denies cough, no shortness of breath, no nausea, no vomiting, abdominal pain, noted to have soft blood pressure this morning denies lightheadedness, no dizziness, no chest pain, no palpitation tolerating diet, no diarrhea. Review of Systems all other system reviewed and negative Physical Exam 2 Vital Signs: Vital Signs: Last Vital Signs Temp 97.6 F 12/02/22 07:24 Pulse 78 12/02/22 08:08 Resp 20 12/02/22 08:08 BP 100/50 L 12/02/22 07:24 Pulse Ox 100 12/02/22 07:24 O2 Del Method Room Air 12/02/22 07:24 Oxygen Flow Rate 2 11/26/22 17:10 BMI result Body Mass Index 46.5 Const: Other: Gen: awake alert x3 ,no acute resp.distress HEENT: sclera anicteric, moist mucus membranes Neck: supple, no?JVD Lungs: diminished breath sounds,no tachypnea, no crackles Heart: regular?rate and rhythm,no murmurs Abd: soft, obese,non-tender, bowel sounds audible Ext: discoloration both legs, no edema Neuro: alert and oriented x3, no focal findings Psych: appropriate affect Objective Data Active Medications Acetaminophen (Acetaminophen 325 Mg Tablet) 650 mg PO Q6H PRN PRN Reason: Pain, Mild (Pain Scale 1-3) Last Admin: 12/01/22 05:29 Dose: 650 mg Documented By: IRINA Acetaminophen/Butalbital/Caffeine (Butalb/Acetamin/Caff 50/325/40 Tablet) 1 tab PO Q6H PRN PRN Reason: Headache Last Admin: 12/01/22 18:19 Dose: 1 tab Documented By: RONNY Albuterol/Ipratropium (Albuterol/Iprat 2.5/0.5mg 3 Ml Ampul.Neb) 3 ml INHALE RQ4H PRN PRN Reason: Shortness of Breath/Wheezing Artificial Tears (Artificial Tears 15 Ml Drops) 1 drop EYE-BOTH BID [facility] Last Admin: 12/02/22 08:20 Dose: 1 drop Documented By: ESVIN Atorvastatin Calcium (Atorvastatin Calcium 20 Mg Tablet) 20 mg PO BEDTIME [facility] Last Admin: 12/01/22 21:16 Dose: 20 mg Documented By: RONNY Brimonidine Tartrate (Brimonidine Tartrate 0.2% Oph 5 Ml Bottle) 1 drop EYE- RIGHT BID [facility] Last Admin: 12/02/22 08:20 Dose: 1 drop Documented By: ESVIN Bumetanide (Bumetanide 1 Mg Tablet) 1 mg PO DAILY [facility]; Protocol Chlordiazepoxide HCl (Chlordiazepoxide Hcl 5 Mg Capsule) 10 mg PO BEDTIME [facility] Last Admin: 12/01/22 21:15 Dose: 10 mg Documented By: RONNY Dextrose (Dextrose 50 % 25 Gm/50 Ml Syringe) 25 gm IVPUSH Q15M PRN; Protocol PRN Reason: per Hypoglycemia Standing Ord. Docusate Sodium (Docusate Sodium 100 Mg Capsule) 100 mg PO DAILY PRN PRN Reason: Constipation Dorzolamide HCl (Dorzolamide Hcl 2 % Ophth Mona 10 Ml Drpbtl) 1 drop EYE-RIGHT BID [facility] Last Admin: 12/02/22 08:21 Dose: 1 drop Documented By: ESVIN Doxycycline Monohydrate (Doxycycline Monohydrate 100 Mg Capsule) 100 mg PO Q12H [facility] Last Admin: 12/02/22 06:15 Dose: 100 mg Documented By: SRINIVAS Escitalopram Oxalate (Escitalopram Oxalate 20 Mg Tablet) 20 mg PO DAILY [facility] Last Admin: 12/02/22 08:20 Dose: 20 mg Documented By: ESVIN Glucose (Glucose Gel 15 Gm Gel..Gram.) 15 gm PO Q15M PRN; Protocol PRN Reason: per Hypoglycemia Standing Ord. Heparin Sodium (Porcine) (Heparin Sodium,Porcine 5,000 Unit/Ml Vial) 5,000 unit SUBCUT Q12H [facility] Last Admin: 12/01/22 22:11 Dose: 5,000 unit Documented By: RONNY Hydroxychloroquine Sulfate (Hydroxychloroquine Sulfate 200 Mg Tablet) 200 mg PO BID [facility] Last Admin: 12/02/22 08:42 Dose: 200 mg Documented By: ESVIN Meropenem 1 gm/ Sodium (Chloride) 100 mls @ 200 mls/hr IV Q12H [facility] Last Infusion: 12/02/22 04:09 Dose: 0 mls/hr Documented By: HO.ANTOIC Vancomycin HCl 500 mg/ Sodium (Chloride) 110 mls @ 110 mls/hr IV Q24H [facility] Last Infusion: 12/01/22 20:04 Dose: 0 mls/hr Documented By: RONNY Insulin Glargine (Insulin Glargine,Hum.Rec.Anlog 100 Unit/Ml 10 Ml Vial) 16 unit SUBCUT BID [facility] Last Admin: 12/02/22 08:19 Dose: 16 unit Documented By: ESVIN Insulin Human Lispro (Insulin Lispro 100 Unit/Ml 3 Ml Vial) 0 unit SUBCUT QIDACHS [facility]; Protocol Last Admin: 12/02/22 08:19 Dose: 2 unit Documented By: ESVIN Latanoprost (Latanoprost 0.005 % Ophth Mona 2.5 Ml Drops) 1 drop EYE-BOTH BEDTIME [facility] Last Admin: 12/01/22 21:17 Dose: 1 drop Documented By: RONNY Levothyroxine Sodium (Levothyroxine Sodium 175 Mcg Tablet) 175 mcg PO DAILY@0600 [facility] Last Admin: 12/02/22 06:15 Dose: 175 mcg Documented By: SRINIVAS Magnesium Oxide (Magnesium Oxide 400 Mg Tablet) 400 mg PO DAILY [facility] Last Admin: 12/02/22 08:20 Dose: 400 mg Documented By: EVSIN Metoprolol Tartrate (Metoprolol Tartrate 50 Mg Tablet) 50 mg PO BID [facility]; Protocol Last Admin: 12/02/22 07:38 Dose: Not Given Documented By: ESVIN Non-Admin Reason: Physician Held Med Pt Own ( Acalabrutinib Maleate [Calquence ( Acalabrutinib Mal)] 100 Mg Tab 100 mg PO BID [facility] Last Admin: 12/02/22 08:21 Dose: 100 mg Documented By: ESVIN Ondansetron HCl (Ondansetron Hcl 4 Mg/2 Ml Vial) 4 mg IVPUSH Q8H PRN PRN Reason: Nausea and Vomiting Pharmacy Consult (Consult Rx Vancomycin Dosing) 1 each MISCELLANE DAILY PRN PRN Reason: Consult order Potassium Chloride (Potassium Chloride Er 20 Meq Tab.Er.Prt) 40 meq PO DAILY [facility] Last Admin: 12/02/22 08:20 Dose: 40 meq Documented By: ESVIN Prednisolone Acetate (Prednisolone Acetate 1 % Oph Susp 5 Ml Drpbtl) 1 drop EYE-RIGHT DAILY [facility] Last Admin: 12/02/22 08:21 Dose: 1 drop Documented By: ESVIN Sitagliptin Phosphate (Sitagliptin Phosphate 100 Mg Tablet) 100 mg PO DAILY [facility] Last Admin: 12/02/22 08:20 Dose: 100 mg Documented By: ESVIN Sodium Chloride (0.9 % Sodium Chloride Flush 3 Ml Syringe) 3 ml IVFLUSH QSHIFT [facility] Last Admin: 12/02/22 08:42 Dose: 3 ml Documented By: ESVIN Timolol Maleate (Timolol Maleate 0.5 % Oph Mona 5 Ml Drbtl) 1 drop EYE-RIGHT BID [facility] Last Admin: 12/02/22 08:20 Dose: 1 drop Documented By: ESVIN Tiotropium [place] (Tiotropium [place] 2.5 Mcg Inhaler) 1 puff INHALE RDAILY [facility] Last Admin: 12/02/22 08:07 Dose: 1 puff Documented By: REANNA Labs 11/30/22 05:50 12/02/22 05:34 Labs: Laboratory Results - last 24 hr 12/01/22 12/01/22 12/01/22 12:01 14:38 16:31 Estim Creat Clear Calc Estimated GFR POC Glucose 133 H 178 H Random Vancomycin 18.1 12/01/22 12/02/22 12/02/22 19:37 05:34 07:30 Estim Creat Clear Calc 46.6 Estimated GFR 38 POC Glucose 265 H 175 H Random Vancomycin Microbiology Microbiology Results: Microbiology 11/26/22 20:18 Blood Culture - Final Blood - Venous No growth after 5 days. Assessment and Plan (1) Acute kidney injury superimposed on chronic kidney disease: Status: Acute Plan 72-year-old female with past medical history of COPD, CHF, REJI, comes into the hospital with complaints of shortness of breath; discussed with niece.? States shortness of breath came on gradually with dry cough; patient appetite decreased as cough increased.? Urine positive for E coli ESBL 1.Acute UTI(E coli ESBL)/ MRSA bacteremia ?? urine culture growing E coli ESBL positive and MRSA, 1/2 blood culture also positive for MRSA -? on IV meropenem/vancomycin (5)? Chavez catheter ordered for 4 weeks of IV vancomycin waiting for final blood culture report to be negative -? chronic leukocytosis likely due to steroid, repeat blood cultures x2 negative for 48 hours, case discussed with ID she recommend 4 weeks of IV vancomycin to cover MRSA and 2 weeks of total IV meropenem for ESBL positive ?? E coli, waiting for Chavez catheter placement, IR refused to place catheter until final blood cultures and negative for 5 days, since his prior blood cultures were positive after 2 days. day 5 tomorrow for final bc report. 2.LEO and CKD -? creatinine down to 1.38, will further reduce dose of Bumex to 1 mg daily due to soft blood pressures, no evidence of fluid overload or CHF, renal ultrasound showed no obstruction case discussed with Nephrology they agree with treatment plan. 3..Acute on ch hypoxic respiratory failure due to copd, history of severe pulmonary hypertension, no evidence of acute CHFpEF - resolved now on room air finger oximetry 100%, continue Bumex? 1 mg daily, appears euvolemic, soft bp ,titrate O2 as tolerated 4.Diabetes type 2 - blood sugars improving now in 200 range, continue lispro correction scale and Lantus b.i.d. 5. history of COPD no acute exacerbation continue home inhalers DC IV steroids 6. hypertension? 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 7. on chronic prednisone 6 mg daily 8. morbid obesity, recommend low-calorie diet. 9. hypothyroidism continue Synthroid. Heparin subQ Full code Will require ongoing hospitalization for treatment of E coli ESBL UTI/bacteremia with IV antibiotics. Time Spent With Patient Time: Total time managing care of this patient today ____ minutes. Quality Stroke Does the patient have a stroke diagnosis?: No VTE Prior VTE?: No VTE Risk Level:: Medical - moderate - high VTE Device Contraindication: Treatment Not Indicated VTE Drug Contraindication: N/A - Med Ordered
--- NOTE | 2022-12-02 10:16 | MHC.CM.PN ---
EMR REVIEWED, CM MET W/PT TO REVIEW BED OFFERS, PT AGREEABLE TO ONELIA SOLORZANO MM UPDATED THAT MELARA WILL NOT BE PLACED UNTIL TOMORROW AND PT COULD POSSIBLY D/C AFTER, CM WILL CONT TO FOLLOW D/C NEEDS.
--- NOTE | 2022-12-02 10:34 | P.PNNP_ITS ---
Subjective Subjective Date of Service: 12/02/22 Interval history: Events noted. Mentation at baseline. Creatinine is trending down. Edema is improved. Blood pressure is relatively low Physical Exam 2 Vital Signs: Vital Signs: Last Vital Signs Temp 97.6 F 12/02/22 07:24 Pulse 78 12/02/22 08:08 Resp 20 12/02/22 08:08 BP 100/50 L 12/02/22 07:24 Pulse Ox 100 12/02/22 07:24 O2 Del Method Room Air 12/02/22 07:24 Oxygen Flow Rate 2 11/26/22 17:10 BMI result Body Mass Index 46.5 Const: Other: Gen: awake alert x3 ,no acute resp.distress HEENT: sclera anicteric, moist mucus membranes Neck: supple, no?JVD Lungs: diminished breath sounds,no tachypnea, no crackles Heart: regular?rate and rhythm,no murmurs Abd: soft, obese,non-tender, bowel sounds audible Ext: discoloration both legs Skin:? multiple areas of ecchymosis, Neuro: alert and oriented x3, no focal findings Psych: appropriate affect Objective Data Labs 11/30/22 05:50 12/02/22 05:34 Labs: Laboratory Results - last 24 hr 12/01/22 12/01/22 12/01/22 12:01 14:38 16:31 Creatinine Estim Creat Clear Calc Estimated GFR POC Glucose 133 H 178 H Random Vancomycin 18.1 12/01/22 12/02/22 12/02/22 19:37 05:34 07:30 Creatinine 1.38 Estim Creat Clear Calc 46.6 Estimated GFR 38 POC Glucose 265 H 175 H Random Vancomycin Microbiology Microbiology Results: Microbiology 11/26/22 20:18 Blood - Venous Blood Culture - Final No growth after 5 days. 11/27/22 22:28 Blood - Venous Blood Culture - Preliminary No growth after 48 hours. 11/27/22 22:14 Blood - Venous Blood Culture - Preliminary No growth after 48 hours. 11/26/22 Unknown Urine Catheterized - Straight Catheter Urine Culture - Final Escherichia coli Methicillin Res Staph Aureus 11/26/22 20:17 Blood - Venous Blood Culture - Final Methicillin Res Staph Aureus Procedures Date of Service Date of Service: 12/02/22 Assessment & Plan Assessment and plan (1) Acute kidney injury superimposed on chronic kidney disease: Status: Acute Plan LEO superimposed on CKD. No evidence of obstruction based on renal ultrasonogram. Probably has tubular injury. Glomerular nephritis or interstitial disease cannot be ruled out yet. Had evidence of fluid overload. improved with IV diuretics. Creatinine is improved Plan Continue to cautiously diurese her. Decrease Bumex to 1 mg p.o. q.d. due to low blood pressure Keep output more than intake. Continue to avoid nephrotoxic agents. Time Spent With Patient Time: Total time managing care of this patient today ____ minutes. Progress Note: Quality Stroke Does the patient have a stroke diagnosis?: No
[2022-12-02] MEDS: Heparin Sodium,Porcine 5,000 UNIT/ML VIAL 5000 UNIT SUBCUT ×2 (12:08→22:03)
[2022-12-02 12:14] LABS: Glucose, Whole Blood 197 mg/dL (60-115)
[2022-12-02 15:02] LABS: Vancomycin Random 18.8 mcg/mL (15-20)
[2022-12-02 16:16] LABS: Glucose, Whole Blood 128 mg/dL (60-115)
[2022-12-02] MEDS: Heparin Sodium,Porcine Flush 500 UNIT/5 ML SYRINGE IVFLUSH (17:50)
[2022-12-02] MEDS: Lidocaine HCl 1 % MPF 30 ML VIAL 10 ML SUBCUT (17:51)
[2022-12-02] MEDS: Lidocaine HCl 1%/Epi 1:100,000 10 ML VIAL SUBCUT (17:52)
[2022-12-02] MEDS: vancomycin HCL 500 MG in 0.9 % Sodium Chloride 100 ML 110 MG IV (18:15)
[2022-12-02 18:49] LABS: Glucose, Whole Blood 120 mg/dL (60-115)
[2022-12-02 20:23] LABS: Glucose, Whole Blood 192 mg/dL (60-115)
[2022-12-02] MEDS: chlordiazePOXIDE HCl 5 MG CAPSULE 10 MG PO (20:25)
[2022-12-02] MEDS: Metoprolol Tartrate 25 MG TABLET PO (20:25)
[2022-12-02] MEDS: Atorvastatin Calcium 20 MG TABLET PO (20:25)
[2022-12-02] MEDS: Latanoprost 0.005 % Ophth Sol 2.5 ML DROPS 1 DROP EYE-BOTH (20:39)
[2022-12-03 04:00] VITALS: BP 130/60; PULSE 65; RESP 20; TEMP 36.2; O2SAT 100
[2022-12-03] MEDS: Levothyroxine Sodium 175 MCG TABLET PO (05:35)
[2022-12-03] MEDS: Doxycycline Monohydrate 100 MG CAPSULE PO (05:35)
[2022-12-03 06:00] VITALS: BMI 46.3
[2022-12-03 07:03] LABS: Creatinine Clr Calc Pharmacy 52.2; Estimated Glomerular Filt Rate 43
[2022-12-03 07:18] LABS: Glucose, Whole Blood 169 mg/dL (60-115)
[2022-12-03 07:19] VITALS: BP 131/56; PULSE 67; RESP 16; TEMP 37.1; O2SAT 94
[2022-12-03] MEDS: Dorzolamide HCl 2 % Ophth Sol 10 ML DRPBTL 1 DROP EYE-RIGHT (07:38)
[2022-12-03] MEDS: Brimonidine Tartrate 0.2% Oph 5 ML BOTTLE 1 DROP EYE-RIGHT (07:38)
[2022-12-03] MEDS: prednisoLONE Acetate 1 % Oph Susp 5 ML DRPBTL 1 DROP EYE-RIGHT (07:38)
[2022-12-03] MEDS: timoloL maleate 0.5 % Oph Sol 5 ML DRBTL 1 DROP EYE-RIGHT (07:38)
[2022-12-03] MEDS: Artificial Tears 15 ML DROPS 1 DROP EYE-BOTH (07:38)
[2022-12-03] MEDS: Escitalopram Oxalate 20 MG TABLET PO (07:39)
[2022-12-03] MEDS: Insulin Lispro 100 UNIT/ML 3 ML VIAL SUBCUT (07:39)
[2022-12-03] MEDS: Insulin Glargine,Hum.rec.anlog 100 UNIT/ML 10 ML VIAL 16 UNIT SUBCUT (07:39)
[2022-12-03] MEDS: SITagliptin Phosphate 100 MG TABLET PO (07:39)
[2022-12-03] MEDS: 0.9 % Sodium Chloride Flush 3 ML SYRINGE IVFLUSH (07:39)
[2022-12-03] MEDS: Potassium Chloride ER 20 MEQ TAB.ER.PRT 40 MEQ PO (07:40)
[2022-12-03] MEDS: Magnesium Oxide 400 MG TABLET PO (07:40)
[2022-12-03] MEDS: Hydroxychloroquine Sulfate 200 MG TABLET PO (07:40)
[2022-12-03 07:52] VITALS: PULSE 65; RESP 18; O2SAT 93
[2022-12-03] MEDS: Bumetanide 1 MG TABLET PO (08:28)
[2022-12-03] MEDS: Metoprolol Tartrate 25 MG TABLET PO (08:28)
--- NOTE | 2022-12-03 09:58 | P.DS_ITS ---
DS: Providers Provider Date of Service: 12/03/22 Date of admission: 11/26/22 22:26 Date of discharge: 12/03/22 Primary care physician: Tam Corea MD Consults: 11/26/22 22:24 Consult to Nephrology Routine Consulting Provider: [facility] Reason for consultation: LEO on CKD Has provider been notified: No 11/26/22 22:26 Consult to Infectious Diseases Routine Consulting Provider: [facility] Infectious Disease Reason for consultation: UTI hx of ESBL Has provider been notified: No DS: Diagnosis Discharge Diagnosis (1) Acute kidney injury superimposed on chronic kidney disease: Status: Acute (2) Acute UTI: Status: Acute (3) MRSA bacteremia: Status: Acute DS: Summary Hospital Course Hospital Course: 72-year-old female with past medical history of CKD, CHF, CLL, COPD, DM, LATONYA, heart block, obesity, recently discharged from the hospital after an extensive stay for acute on chronic respiratory failure status post intubation, as well as diabetic drip, patient was discharged from the hospital to home on 11/26, with complaints of increased shortness of breath and cough.? Patient's daughter reports that she noticed her mother being significantly short of breath, has increased cough and sputum production and appeared more swollen.? Daughter checked her oxygen at home and she was satting 70%.? Of note patient was discharged home on her Bumex of 2 mg p.o. b.i.d..? On arrival to the ED patient noted to be febrile with a temp of a 100.8 degrees, tachypneic with a respiratory rate of 29, satting 91% on room air Labs are significant for WBC count of 15.6 which is chronically elevated, hemoglobin of 8.8 which is around her baseline, BNP elevated at 1132 which is similar to her recent, creatinine of 1.93 which is higher than her baseline of 1.36 on discharge UA found to be positive for leukocyte Estrace, nitrites, WBC as well as 4+ bacteria Patient has history of ESBL Patient started on IV diuretics, antibiotics and will be admitted for further management Hospital Course Admitted to telemetry where monitor failed to demonstrate acute dysrhythmias. Subsequent urine culture grew ESBL E coli sensitive to meropenem; 1 on 2 blood cultures with MRSA. On 11/30/2022, Chavez catheter was placed by Interventional Radiology. Id was consulted and recommended a total of 2 weeks of IV meropenem to treat E coli (ESBL) and 28 days of IV vancomycin to treat MRSA bacteremia. She will be discharged to [facility] to complete these via Chavez and further plans at that time based on receiving facility and clinical presentation Time Spent with Patient Time attestation: Total time managing care of this patient today ____ minutes. Discharge coordination time: Greater than 30 minutes Quality: Safe Use of Opioids Does Pt have an Active Cancer Diagnosis on the Problem List?: No Quality: Stroke Does the patient have a stroke diagnosis?: No Physical Exam Vital Signs: Vital Signs: Last Vital Signs Temp 98.7 F 12/03/22 07:19 Pulse 65 12/03/22 07:52 Resp 18 12/03/22 07:52 BP 131/56 L 12/03/22 07:19 Pulse Ox 94 12/03/22 07:19 O2 Del Method Room Air 12/03/22 07:19 Oxygen Flow Rate 2 11/26/22 17:10 BMI result Body Mass Index 46.3 Const: Other: Awake alert no acute distress Chest: Other: Tunnel catheter right chest Resp: Other: Clear to auscultation bilaterally no rales rhonchi wheezes Cardio: Other: No S4; positive S1-S2; no S3 murmurs rubs or gallops GI: Other: Soft nontender nondistended normoactive bowel sounds Extrem: Other: No edema bilaterally DS: Data Data Completed and Pending Completed studies during hospitalization [Text1]: Procedures Assistance with Respiratory Ventilation, Less than 24 Consecutive Hours, Continuous Positive Airway Pressure (07/30/22) Dilation of Bilateral Ureters with Intraluminal Device, Via Natural or Artificial Opening Endoscopic (10/28/22) Drainage of Left Main Bronchus, Via Natural or Artificial Opening Endoscopic, Diagnostic (11/19/21) Drainage of Left Pleural Cavity, Percutaneous Approach (11/19/21) Drainage of Right Main Bronchus, Via Natural or Artificial Opening Endoscopic, Diagnostic (11/19/21) Drainage of Right Pleural Cavity, Percutaneous Approach (11/19/21) Excision of Right Inguinal Lymphatic, Percutaneous Approach, Diagnostic (11/19/21) Excision of Thorax Lymphatic, Percutaneous Endoscopic Approach, Diagnostic (11/19/21) Fluoroscopy of Kidneys, Ureters and Bladder (10/28/22) Insertion of Endotracheal Airway into Trachea, Via Natural or Artificial Opening (11/19/21) Insertion of Infusion Device into Superior Vena Cava, Percutaneous Approach (10/28/22) Inspection of Tracheobronchial Tree, Via Natural or Artificial Opening Endoscopic (11/19/21) Introduction of Remdesivir Anti-infective into Peripheral Vein, Percutaneous Approach, [employer] (10/11/21) Introduction of Vasopressor into Central Vein, Percutaneous Approach (10/28/22) Performance of Urinary Filtration, Intermittent, Less than 6 Hours Per Day (10/28/22) Respiratory Ventilation, Greater than 96 Consecutive Hours (11/19/21) Transfusion of Nonautologous Red Blood Cells into Peripheral Vein, Percutaneous Approach (10/28/22) Ultrasonography of Superior Vena Cava, Guidance (10/28/22) Labs on day of discharge: Laboratory Results - last 24 hr 12/02/22 12/02/22 12/02/22 11:24 14:29 16:11 Creatinine Estim Creat Clear Calc Estimated GFR POC Glucose 197 H 128 H Random Vancomycin 18.8 12/02/22 12/02/22 12/03/22 18:44 20:16 06:30 Creatinine 1.23 Estim Creat Clear Calc 52.2 Estimated GFR 43 POC Glucose 120 H 192 H Random Vancomycin 12/03/22 07:05 Creatinine Estim Creat Clear Calc Estimated GFR POC Glucose 169 H Random Vancomycin Discharge Plan Discharge Anticipated Discharge Date/Time: 12/03/22 11:51 Patient Disposition: Xfer [facility] Discharge Diagnosis: Acute UTI/MRSA bacteremia Referrals: Tam Corea MD [Primary Care Provider] - 2 Weeks (PHONE APPT SCHEDULED FOR 12/20 AT 3:15PM TO DISCUSS MEDICAL NECESSITY FOR PT TO HAVE A BARIATRIC BED D/T STRICT MEDICARE GUIDELINES. ) Discharge Medications: New meropenem 1 gram recon soln 1 g IV Q12H Qty: 28 0RF vancomycin 500 mg recon soln 500 mg IV DAILY 28 Days Qty: 28 0RF bumetanide 1 mg Tablet 1 mg PO DAILY Qty: 30 0RF Protocol: Hold for SBP< HOLD for SBP < : 90 Continued levothyroxine 175 mcg tablet 175 mcg PO DAILY@0600 citalopram 20 mg tablet 40 mg PO DAILY simvastatin 20 mg tablet 20 mg PO BEDTIME chlordiazepoxide HCl 10 mg capsule 10 mg PO BEDTIME insulin lispro protamin-lispro 100 unit/mL (75-25) insulin pen 0 unit subcut QIDACHS Protocol: Insulin Correction Scale Less than or equal to 110 ---- Give (units): 0 111 to 150 Give (units): 0 151 to 200 Give (units): 2 201 to 250 Give (units): 4 251 to 300 Give (units): 6 301 to 350 Give (units): 8 Greater than 350 Give (units): 10 Call MD if Blood Glucose > : 350 Januvia 100 mg tablet 100 mg PO DAILY Fleet Enema 19-7 gram/118 mL Enema 118 ml FL BEDTIME PRN (Reason: Constipation) guaifenesin 600 mg Tablet Extended Release 12hr 600 mg PO BID acetaminophen [Tylenol] 325 mg Tablet 650 mg PO Q4H PRN (Reason: Pain (Scale Score 4-6)) polyethylene glycol 3350 [Miralax] 17 gram/dose Powder 17 g PO BID amlodipine 10 mg tablet 10 mg PO DAILY lorazepam 0.5 mg tablet 0.5 mg PO BID PRN (Reason: Anxiety) bisacodyl 10 mg Suppository 10 mg FL DAILY PRN (Reason: Constipation) hydroxyzine HCl 25 mg tablet 25 mg PO DAILY hydroxychloroquine 200 mg tablet 200 mg PO BID magnesium 200 mg Tablet 400 mg PO DAILY biotin 5 mg Tablet 5 mg PO DAILY riboflavin (vitamin B2) 400 mg Tablet 400 mg PO DAILY Calquence (acalabrutinib mal) 100 mg Tablet 100 mg PO Q12H Qty: 60 3RF Incruse Ellipta 62.5 mcg/actuation Blister With Device 1 inh INHALATION DAILY budesonide-formoterol [Symbicort] 160-4.5 mcg/actuation Hfa Aerosol Inhaler 2 puff INHALATION BID latanoprost 0.005 % drops 1 drp ophthalmic (eye) BEDTIME albuterol sulfate 0.63 mg/3 mL Solution For Nebulization 0.63 mg INHALATION Q2H PRN (Reason: Wheezing) sennosides [senna] 8.6 mg Tablet 17.2 mg PO DAILY PRN (Reason: Constipation) nujwzxckwe-rjrqaiujlorau-yobf 50-325-40 mg tablet 1 tab PO Q6H PRN (Reason: Headache) prednisolone acetate 1 % drops,suspension 1 drp ophthalmic-Right DAILY metoprolol tartrate 50 mg Tablet 50 mg PO BID timolol maleate 0.5 % drops 1 drp ophthalmic-Right BID coenzyme Q10 [CoQ-10] 100 mg Capsule 150 mg PO DAILY melatonin 5 mg Tablet 5 mg PO BEDTIME Simbrinza 1-0.2 % drops,suspension 1 drp ophthalmic-Right BID insulin glargine [Lantus Solostar U-100 Insulin] 100 unit/mL (3 mL) insulin pen 16 unit subcut BID Hold Instructions: Resume on 05/10/22. Artificial Tears (cmc) 1 % Drops 1 drp OPHTHALMIC (EYE) BID levalbuterol HCl 1.25 mg/3 mL Solution For Nebulization 1.25 mg INHALATION QID potassium chloride 20 mEq Tablet,Er Particles/Crystals 40 meq PO DAILY Qty: 30 0RF sennosides-docusate sodium [Senna-S] 8.6-50 mg Tablet 1 tab-cap PO DAILY diphenhydramine-zinc acetate 2-0.1 % Cream 1 appl TOPICAL BID prednisone 1 mg Tablet 6 mg PO DAILY nystatin 100,000 unit/gram Powder 1 appl TOPICAL BID Discontinued guaifenesin 100 mg/5 mL Liquid 200 mg PO Q4H PRN (Reason: Pain (Scale Score 1-3)) bumetanide 1 mg Tablet 2 mg PO BID@0800,1700 Qty: 60 0RF Protocol: Hold for SBP< HOLD for SBP < : 90 Discharge Orders: Discharge Order (Routine); Ordered 12/03/22 Ordered By: Logan Martinez Diet: Advance to usual diet Activity on Discharge: As tolerated Stand Alone Forms: Patient Portal Discharge page Care Plan Goals: Complete meropenem 1 g IV q.12 hours times 14 days via Chavez; complete vancomycin 500 mg daily for 28 days the headache made Health Concerns: All other meds as ordered Plan of Treatment: As per receiving facility Assessment: See discharge summary
[2022-12-03 11:06] LABS: Glucose, Whole Blood 140 mg/dL (60-115)
[2022-12-03] MEDS: Heparin Sodium,Porcine 5,000 UNIT/ML VIAL 5000 UNIT SUBCUT (11:17)
[2022-12-03 11:28] VITALS: BP 126/55; PULSE 61; RESP 16; TEMP 36.7; O2SAT 100
--- NOTE | 2022-12-03 11:59 | MHC.CLN ---
F/U PT WITH INCREASED NUTRITION RISK R/T PRESSURE INJURY PT WITH 100% DIET RX: 2000DM -WILL ADD 2GM NA R/T CHF AND CKD RECOMMEND RE-STARTING ENSURE MAX BID TO PROMOTE WOUND HEALING SUPP TO PROVIDE 300KCALS, 60G PROTEIN MONITOR PO INTAKE CLOSELY
--- NOTE | 2022-12-03 12:44 | MHC.CM.PN ---
IMM 12/03/22PT MEDICALLY CLEARED FOR D/C TO [facility] FOR 4WKS IV ABX, PER PT REQUEST CM WILL CONTACT PT'S NIECE/HCP NIA TO LET HER KNOW PLAN, AMANDA FOR TRANSPORT AT 1:30PM PENDING STAT CXR TO CONFIRM MELARA PLACEMENT.
--- NOTE | 2022-12-03 17:08 | PM.PNNEP ---
Subjective Subjective Date of Service: 12/03/22 Interval history: Events noted. Mentation at baseline. Creatinine is trending down. Edema is improved. Physical Exam Vital Signs: Vital Signs: Last Vital Signs Temp 98.1 F 12/03/22 11:28 Pulse 61 12/03/22 11:28 Resp 16 12/03/22 11:28 BP 126/55 L 12/03/22 11:28 Pulse Ox 100 12/03/22 11:28 O2 Del Method Room Air 12/03/22 11:28 Oxygen Flow Rate 2 11/26/22 17:10 BMI result Body Mass Index 46.3 Const: Other: Awake alert no acute distress General: cooperative and no acute distress HEENT: Head: Yes normal to inspection Face and sinus: Yes normal facial exam Mouth: Normal oral and palatal mucosa present Teeth and gingiva: dentition normal Eyes: General: appearance normal, both eyes and all related structures Pupils: Equal, round and reactive pupils present Resp: Other: Clear to auscultation bilaterally no rales rhonchi wheezes Effort & Inspection: normal respiratory effort Cardio: Other: No S4; positive S1-S2; no S3 murmurs rubs or gallops Rate: regular rate Rhythm: regular rhythm GI: Other: Soft nontender nondistended normoactive bowel sounds Palpation (GI): Soft to palpation and nontender Auscultation: normal bowel sounds : General: Yes no CVA tenderness Back/Spine/Pelvis: Back: no CVA tenderness Skin: Other: Changes chronic lymphedema, slight erythema, no warmth or tenderness, 1+ pitting edema General skin exam: no rashes or lesions noted Neuro: General: moves all extremities Cranial nerves: Yes Equal, round and reactive pupils present Cognition (Neuro): normal cognition Extrem: Other: No edema bilaterally General: Yes normal to inspection and Yes no pedal edema Psych: Appearance: grossly normal Objective Data Labs 11/30/22 05:50 12/03/22 06:30 Labs: Laboratory Results - last 24 hr 12/02/22 12/02/22 12/03/22 18:44 20:16 06:30 Creatinine 1.23 Estim Creat Clear Calc 52.2 Estimated GFR 43 POC Glucose 120 H 192 H 12/03/22 12/03/22 07:05 11:00 Creatinine Estim Creat Clear Calc Estimated GFR POC Glucose 169 H 140 H Microbiology Microbiology Results: Microbiology 11/27/22 22:28 Blood - Venous Blood Culture - Final No growth after 5 days. 11/27/22 22:14 Blood - Venous Blood Culture - Final No growth after 5 days. 11/26/22 20:18 Blood - Venous Blood Culture - Final No growth after 5 days. 11/26/22 Unknown Urine Catheterized - Straight Catheter Urine Culture - Final Escherichia coli Methicillin Res Staph Aureus 11/26/22 20:17 Blood - Venous Blood Culture - Final Methicillin Res Staph Aureus Procedures Date of Service Date of Service: 12/03/22 Assessment & Plan Assessment and plan (1) Acute kidney injury superimposed on chronic kidney disease: Status: Acute (2) Acute UTI: Status: Acute (3) MRSA bacteremia: Status: Acute Plan LEO superimposed on CKD. In setting of bacteremia; most likely ATN No evidence of obstruction based on renal ultrasonogram. Had evidence of fluid overload. improved with IV diuretics. Creatinine is improved Plan Continue to cautiously diurese her. Continue to avoid nephrotoxic agents and contrast Time Spent With Patient Time: Total time managing care of this patient today ____ minutes. Progress Note: Quality Stroke Does the patient have a stroke diagnosis?: No
== END 2022-12-03 13:56 | DRG 291 ==
LOC: HO.ED 21:09 → HO.EDOVER 22:31 → HO.IMC 11-27 14:48
PROVIDERS: Hospitalist; Radiology Vascular & Interventional Radiology; Admitting Provider Internal Medicine; Emergency Provider Emergency Medicine; PCP Internal Medicine; Visit Provider Hospitalist
PROC: 0JH63XZ Insertion of Tunneled Vascular Access Device into Chest Subcutaneous Tissue and Fascia, Percutaneous Approach (ICD-10-PCS; principal; 2022-12-02 15:00)
DX: I13.0 Hypertensive heart and chronic kidney disease with heart failure and stage 1 through stage 4 chronic kidney disease, or unspecified chronic kidney disease (principal); I50.33 Acute on chronic diastolic (congestive) heart failure; J96.01 Acute respiratory failure with hypoxia; J96.21 Acute and chronic respiratory failure with hypoxia; N17.0 Acute kidney failure with tubular necrosis; Z68.42 Body mass index [BMI] 45.0-49.9, adult; N39.0 Urinary tract infection, site not specified; Z16.12 Extended spectrum beta lactamase (ESBL) resistance; R78.81 Bacteremia; G47.33 Obstructive sleep apnea (adult) (pediatric); E11.22 Type 2 diabetes mellitus with diabetic chronic kidney disease; E03.9 Hypothyroidism, unspecified; E66.01 Morbid (severe) obesity due to excess calories; B96.20 Unspecified Escherichia coli [E. coli] as the cause of diseases classified elsewhere; L89.152 Pressure ulcer of sacral region, stage 2; L89.312 Pressure ulcer of right buttock, stage 2; I44.1 Atrioventricular block, second degree; B95.62 Methicillin resistant Staphylococcus aureus infection as the cause of diseases classified elsewhere; N18.31 Chronic kidney disease, stage 3a; Z74.01 Bed confinement status; Z87.891 Personal history of nicotine dependence; Z79.4 Long term (current) use of insulin; Z79.52 Long term (current) use of systemic steroids; Z79.890 Hormone replacement therapy; Z79.899 Other long term (current) drug therapy
CPT/HCPCS: 36415; 36558; 71045; 76775; 76937; 80048; 80053; 80076; 80202; 81001; 82565; 82947; 83605; 83735; 83880; 84484; 85025; 85610; 87040; 87077; 87086; 87088; 87186; 87205; 93005; 94640; 97162; 99152; 99285; C1751; C1769; J1642; J1643; J2185; J2920; J3370

== ENCOUNTER 2022-11-26 22:26 | Outpatient (BNV) | payer MEDICARE, MEDICAID, SELFPAY | END 2022-12-02 17:00 | PROVIDERS: Admitting Provider Internal Medicine; Emergency Provider Emergency Medicine; PCP Internal Medicine; Visit Provider Radiology Vascular & Interventional Radiology | DX: N17.9 Acute kidney failure, unspecified (principal); N18.9 Chronic kidney disease, unspecified | CPT/HCPCS: 36558; 76937 ==

== ENCOUNTER 2022-11-26 22:26 | Outpatient (BNV) | payer MEDICARE, MEDICAID, SELFPAY | END 2022-11-30 17:54 | PROVIDERS: Admitting Provider Internal Medicine; Emergency Provider Emergency Medicine; PCP Internal Medicine; Visit Provider Radiology Vascular & Interventional Radiology | DX: N17.9 Acute kidney failure, unspecified (principal); N39.0 Urinary tract infection, site not specified | CPT/HCPCS: 36558; 76937 ==

== ENCOUNTER → 2022-11-26 22:26 | Outpatient (BNV) | payer MEDICARE, MEDICAID, SELFPAY | PROVIDERS: Admitting Provider Internal Medicine; Emergency Provider Emergency Medicine; PCP Internal Medicine; Visit Provider Internal Medicine | DX: J96.21 Acute and chronic respiratory failure with hypoxia (principal) | CPT/HCPCS: 99222 ==

== ENCOUNTER → 2022-11-26 22:26 | Outpatient (BNV) | payer MEDICARE, MEDICAID, SELFPAY | PROVIDERS: Admitting Provider Internal Medicine; Emergency Provider Emergency Medicine; PCP Internal Medicine; Visit Provider Internal Medicine | DX: N17.9 Acute kidney failure, unspecified (principal); N18.9 Chronic kidney disease, unspecified; N39.0 Urinary tract infection, site not specified; R78.81 Bacteremia; B95.62 Methicillin resistant Staphylococcus aureus infection as the cause of diseases classified elsewhere | CPT/HCPCS: 99223; 99233; 99239; 99499 ==

== ENCOUNTER 2022-12-11 05:15 | Outpatient (REF) | payer MEDICARE, MEDICAID, SELFPAY ==
[2022-12-11 05:37] LABS: Vancomycin Trough 19.5 mcg/mL (10.0-20.0)
== END 2022-12-11 05:16 | disposition home or self-care (01) ==
LOC: HO.MMNH2L 05:15
PROVIDERS: Visit Provider Family Medicine
DX: Z13.89 Encounter for screening for other disorder (principal)
CPT/HCPCS: 36415; 80202

== ENCOUNTER 2022-12-12 07:28 | Inpatient (IN) | payer MEDICARE, MEDICAID, SELFPAY ==
[2022-12-12] VITALS (16 sets, daily range): BP systolic 98–158; BP diastolic 33–82; PULSE 58–94; RESP 16–24; TEMP 36.7; O2SAT 85–100; BMI 52.4
--- NOTE | ~2022-12-12 | XR_ITS ---
EXAMINATION: XR CHEST CLINICAL INFORMATION: SOB COMPARISON: Chest 12/13/2022 TECHNIQUE: Frontal view of the chest was obtained. FINDINGS: There is mild cardiomegaly. Increased pulmonary vascularity suggestive of mild congestion. There is mitral valve calcifications are noted. The lungs are expanded with bibasilar atelectasis. There is a right jugular central catheter its tip in mid SVC. No gross bony abnormality. XR/XR chest 1V IMPRESSION: 1. Cardiomegaly with mild pulmonary vascular congestion. 2. Bibasilar atelectasis. 3. Right jugular central catheter tip in mid SVC.
--- NOTE | 2022-12-12 07:32 | ECG_ITS ---
Test Reason : dyspnea Blood Pressure : / mmHG Vent. Rate : 070 BPM Atrial Rate : 070 BPM P-R Int : 220 ms QRS Dur : 108 ms QT Int : 420 ms P-R-T Axes : 036 105 -08 degrees QTc Int : 453 ms Sinus rhythm with 1st degree A-V block Rightward axis Low voltage QRS T wave abnormality, consider inferior ischemia Abnormal ECG When compared with ECG of 26-NOV-2022 20:05, Minimal criteria for Anterior infarct are no longer Present Referred By: Sherly Davis Electronically Signed By:AMANDA RAMIREZ
--- NOTE | 2022-12-12 07:34 | ED_ITS ---
HPI - General Adult General Chief complaint: Dyspnea Stated complaint: SOB,LOW 80'S,93% ON 10LPM PER EMS Time Seen by Provider: 12/12/22 07:31 Source: EMS Mode of arrival: EMS Limitations: altered mental status History of Present Illness HPI narrative: 72-year-old female past medical history significant for CLL, COPD on 3 L nasal cannula, CHF, diabetes, CKD, hyperlipidemia, hypertension, hypothyroidism, PVD, presents to the emergency department for evaluation of shortness of breath, altered mental status was found at [facility] facility with difficulty breathing, when EMS arrived patient was saturating low 80s, she was placed on a non-rebreather and her O2 saturation went up to 93%. Patient with altered mental status. Unable to provide me with a good history or review of systems. Related Data Home Medications Medication Instructions Recorded Confirmed chlordiazepoxide HCl 10 mg capsule 10 mg PO BEDTIME 10/08/21 11/26/22 citalopram 20 mg tablet 40 mg PO DAILY 10/08/21 11/26/22 insulin lispro protamine-lispro 0 unit subcut QIDACHS 10/08/21 11/26/22 100 unit/mL (75-25) subcutaneous pen levothyroxine 175 mcg tablet 175 mcg PO DAILY@0600 10/08/21 11/26/22 simvastatin 20 mg tablet 20 mg PO BEDTIME 10/08/21 11/26/22 sitagliptin phosphate 100 mg 100 mg PO DAILY 10/08/21 11/26/22 tablet (Januvia) latanoprost 0.005 % eye drops 1 drp ophthalmic (eye) BEDTIME 11/20/21 11/26/22 albuterol sulfate 0.63 mg/3 mL 0.63 mg inhalation Q2H PRN Wheezing 02/16/22 11/26/22 solution for nebulization brinzolamide 1 %-brimonidine 0.2 % 1 drp ophthalmic-Right BID 02/16/22 11/26/22 eye drops,suspension (Simbrinza) ffguohafrx-zjvnqgwudyhhd-yavwwwjk 1 tab PO Q6H PRN Headache 02/16/22 11/26/22 50 mg-325 mg-40 mg tablet coenzyme Q10 100 mg capsule 150 mg PO DAILY 02/16/22 11/26/22 (CoQ-10) insulin glargine 100 unit/mL (3 16 unit subcut BID 02/16/22 11/26/22 mL) subcutaneous pen (Lantus Solostar U-100 Insulin) melatonin 5 mg tablet 5 mg PO BEDTIME 02/16/22 11/26/22 metoprolol tartrate 50 mg tablet 50 mg PO BID 02/16/22 11/26/22 prednisolone acetate 1 % eye 1 drp ophthalmic-Right DAILY 02/16/22 11/26/22 drops,suspension sennosides 8.6 mg tablet (senna) 17.2 mg PO DAILY PRN Constipation 02/16/22 11/26/22 timolol maleate 0.5 % eye drops 1 drp ophthalmic-Right BID 02/16/22 11/26/22 carboxymethylcellulose sodium 1 % 1 drp ophthalmic (eye) BID 03/15/22 11/26/22 eye drops (Artificial Tears (carboxymethylcellulose)) budesonide-formoterol HFA 160 2 puff inhalation BID 04/27/22 11/26/22 mcg-4.5 mcg/actuation aerosol inhaler (Symbicort) umeclidinium 62.5 mcg/actuation 1 inh inhalation DAILY 04/27/22 11/26/22 blister powder for inhalation (Incruse Ellipta) acetaminophen 325 mg tablet 650 mg PO Q4H PRN Pain (Scale 06/08/22 11/26/22 (Tylenol) Score 4-6) amlodipine 10 mg tablet 10 mg PO DAILY high blood pressure 06/08/22 11/26/22 guaifenesin 600 mg tablet, 600 mg PO BID cough 06/08/22 11/26/22 extended release 12 hr polyethylene glycol 3350 17 17 g PO BID 06/08/22 11/26/22 gram/dose oral powder (Miralax) sodium phosphates 19 gram-7 118 ml ME BEDTIME PRN Constipation 06/08/22 11/26/22 gram/118 mL enema (Fleet Enema) levalbuterol HCl 1.25 mg/3 mL 1.25 mg inhalation QID 07/30/22 11/26/22 solution for nebulization biotin 5 mg tablet 5 mg PO DAILY 08/11/22 11/26/22 bisacodyl 10 mg rectal suppository 10 mg ME DAILY PRN Constipation 08/11/22 11/26/22 hydroxychloroquine 200 mg tablet 200 mg PO BID 08/11/22 11/26/22 hydroxyzine HCl 25 mg tablet 25 mg PO DAILY 08/11/22 11/26/22 lorazepam 0.5 mg tablet 0.5 mg PO BID PRN Anxiety 08/11/22 11/26/22 magnesium 200 mg tablet 400 mg PO DAILY 08/11/22 11/26/22 riboflavin (vitamin B2) 400 mg 400 mg PO DAILY 08/11/22 11/26/22 tablet diphenhydramine-zinc acetate 2 1 appl topical BID 10/27/22 11/26/22 %-0.1 % topical cream nystatin 100,000 unit/gram topical 1 appl topical BID 10/27/22 11/26/22 powder prednisone 1 mg tablet 6 mg PO DAILY 10/27/22 11/26/22 sennosides 8.6 mg-docusate sodium 1 tab-cap PO DAILY 10/27/22 11/26/22 50 mg tablet (Senna-S) Previous Rx's Medication Instructions Recorded potassium chloride 20 mEq 40 meq (2 x 20 mEq) PO DAILY #30 08/06/22 tablet,extended release(part/cryst) tabs acalabrutinib maleate 100 mg 100 mg PO Q12H #60 tabs 10/11/22 tablet (Calquence (acalabrutinib maleate)) bumetanide 1 mg tablet 1 mg PO DAILY #30 tabs 12/03/22 meropenem 1 gram intravenous 1 g IV Q12H #28 ea 12/03/22 solution vancomycin 500 mg intravenous 500 mg IV DAILY 28 days #28 ea 12/03/22 solution Allergies Allergy/AdvReac Type Severity Reaction Status Date / Time oxycodone [From Percocet] Allergy Intermediate Rash Verified 04/27/22 11:42 lisinopril Allergy Unknown Unknown Verified 04/27/22 11:42 Review of Systems 2 Review of Systems: Constitutional : No Weight loss, No Fever, No Chills, No Fatigue, No Malaise ENT/Mouth : No sore throat, No Rhinorrhea Eyes: No Eye Pain, No Swelling, No Redness Cardiovascular : No Chest Pain, + SOB, + Dyspnea on Exertion, No Orthopnea, No Edema, No Palpitations Respiratory : No Cough, No Sputum, No Wheezing Gastrointestinal : No Nausea, No Vomiting, No Diarrhea, No Constipation, No abdominal Pain, No Hematochezia, No Melena Genitourinary : No Dysuria, No Urinary Frequency, No Hematuria, Musculoskeletal : No joint pain, No Myalgias, No Joint Swelling Skin : No Skin Lesions, No rash Neuro : No Weakness, No Numbness, No Dizziness, No Headache Psych : No Anxiety/Panic, No Depression All other systems reviewed and are negative Yes all other systems are reviewed and are negative [facility] Past Medical History Attestation statement: The following information was validated with the patient. Source: old records reviewed and nursing notes reviewed Medical History Acute UTI Acute kidney injury superimposed on CKD Bradycardia Pleural effusion Acute respiratory failure Pneumonia due to COVID-19 virus Chronic lymphocytic leukemia (CLL), B-cell Dyspnea Congestive heart failure COVID-19 Hypoxia Influenza A CLL (chronic lymphocytic leukemia) Suspected deep tissue injury Klebsiella pneumonia Infection with ESBL Klebsiella oxytoca Lymphadenopathy, mediastinal Pleural effusion Congestive heart failure Essential hypertension COVID Lower extremity edema Migraine HTN (hypertension) Pseudotumor cerebri PVD (peripheral vascular disease) Obesity CKD (chronic kidney disease) Diabetes mellitus with insulin therapy Hypothyroidism HLD (hyperlipidemia) Surgical History S/P appendectomy H/O cataract extraction H/O hysterectomy for benign disease Hx of cholecystectomy Family History Family History Mother Heart attack, Onset Age: 92 Father Heart attack, Onset Age: 66 Other Diabetes Social History Social History Household Members: Family Household Members Other:: patient came from a rehab facility, been there since dec Housing: House Do you presently have visiting nurse or other home services: Yes Alcohol intake: never Patient Tobacco Use Status: Former Tobacco user Second Hand Smoke Exposure: No Use of substances other than those prescribed or required for medical reasons: No Advance Directives: Yes Advance Directives on File: Yes Advance Directives Date on File: 09/26/20 service: No Current occupational status: disabled Physical Exam ED Vital Signs: Vital Signs - 24 hr 12/12/22 07:38 12/12/22 08:13 12/12/22 08:14 Pulse Rate 72 67 Respiratory Rate 22 H 21 H 24 H Blood Pressure 146/54 H 98/54 L Pulse Oximetry 99 96 Oxygen Delivery Method Non-Rebreather Mask CPAP Oxygen Flow Rate 12/12/22 08:21 12/12/22 09:28 12/12/22 10:26 Pulse Rate 63 62 68 Respiratory Rate 16 16 22 H Blood Pressure 115/49 L 134/46 L 135/53 L Pulse Oximetry 100 100 91 L Oxygen Delivery Method BiPAP BiPAP Room Air Oxygen Flow Rate 12/12/22 10:31 12/12/22 10:35 Pulse Rate 66 Respiratory Rate 20 18 Blood Pressure 139/73 Pulse Oximetry 94 100 Oxygen Delivery Method Nasal Cannula Nasal Cannula Oxygen Flow Rate 3 2 BMI result Body Mass Index 52.4 hypoxia Appearance: Alert.? Awake. Moderate acute respiratory distress.? Patient attended in toxic appearing Head: Normocephalic, atraumatic, no step-offs or deformities Eyes: Pupils equal, round and reactive to light.? ENT: Pharynx normal.? Neck: Normal inspection.? Neck supple.? CVS: Normal heart rate and rhythm.? Pulses normal.? Respiratory: Moderate respiratory distress.? Breath sounds diminished with faint crackles bilaterally to lower extremities.? Abdomen: Soft and nontender.? Skin: Skin warm and dry.? Normal skin color.? Normal skin turgor.? Extremities: No lower extremity edema.? No calf ttp. 5/5 strength to bilateral upper and lower extremities Neuro: Patient awake. Moving all extremities however appears toxic. Alert and oriented x4 Course Reevaluation(s) Reevaluation #1: Patient's ABG with a primary respiratory acidosis, patient on BiPAP. I suspect this hypoxia secondary to CHF unlikely from infection. Labs are pending. Will repeat another ABG in an hour Time: 08:07 Reevaluation #2: CBC with chronic leukocytosis and a chronic normocytic anemia. Chemistry with elevated BUN 36 however appears to be around patient's baseline likely secondary to poor p.o. intake/dehydration, patient is also noted to have an elevated BN P 1175, troponin level of 12.7 nonischemic EKG. I suspect patient's shortness of breath secondary to CHF. I personally reviewed patient's x-ray which shows pulmonary vasculature prominence/congestion, question pulmonary edema will wait for final read however patient will require hospital admission. Patient is doing well on BiPAP. Appears comfortable. Time: 09:52 Reevaluation #3: Patients UA w/ leukocyte esterase and blood + 1 bacteria with large # of epithelial cells --> likely contaminant. NO UTI sx. Time: 11:09 Additional Reevaluation(s): 1137 100% on 2 L doing better, ABG improving. Medications Administered Discontinued Medications Generic Name Dose Route Start Last Admin Trade Name Frelukas PRN Reason Stop Dose Admin Furosemide 20 mg 12/12/22 09:52 12/12/22 10:32 Furosemide 20 Mg/2 Ml Vial IVPUSH 12/12/22 09:53 20 mg ONCE ONE Administration Protocol Medical Decision Making Medical Decision Making [facility] Narrative: 0737 72-year-old female presents from [facility] facility with shortness of breath since this morning was noted to be 80% on her baseline nasal cannula Facility told ems patient doesnt use O2 however when they arrived she was on 2 L and hypoxic also upon chart review patient patient has been using O2 3-4 L at baseline. Physical exam with good bilateral breath sounds diminished, and crackles to bilateral lower lobes. Concerns for CHF versus pneumonia versus viral illness vs chronic lung disease. Unlikely PE, ACS, pneumothorax. Will rule out metabolic derangements and urinary infection Plan at this time labs, imaging urine Differential Diagnosis Differential Diagnoses: The differential diagnosis associated with the presentation includes Concerns for CHF versus pneumonia versus viral illness. Unlikely PE, ACS, pneumothorax. Will rule out metabolic derangements and urinary infection Admission/Observation Consideration of admission/observation: Escalation of care including admission/observation considered likely Lab Data [facility] Lab Attestation statement: I reviewed the patient's lab results. 12/12/22 07:53 12/12/22 07:53 Labs: Lab Results 12/12/22 12/12/22 12/12/22 Range/Units 07:53 07:57 08:00 WBC 18.9 H (4.8-10.8) X10*3/uL RBC 3.47 L (4.20-5.50) X10*6/uL Hgb 8.9 L (12.0-16.0) g/dl Hct 29.8 L (37.0-47.0) % MCV 85.9 (80.0-98.0) fL MCH 25.6 L (27.0-33.0) pg MCHC 29.9 L (31.0-35.0) g/dl RDW 17.6 H (11.0-16.0) % Plt Count 207 D (160-400) X10*3/uL MPV 12.7 H (9.4-12.3) fL Immature Gran % (Auto) 1.0 H (0.0-0.4) % Neut % (Auto) 76.8 H (45-73) % Lymph % (Auto) 8.7 L (20-40) % [place] % (Auto) 8.9 (2-11) % Eos % (Auto) 4.1 H (0-4) % Baso % (Auto) 0.5 (0-2) % Lymph # (Auto) 1.6 (1.2-4.9) X10*3/uL [place] # (Auto) 1.7 H (0.1-1.2) X10*3/uL Eos # (Auto) 0.8 H (0.0-0.4) X10*3/uL Baso # (Auto) 0.1 (0.0-0.2) X10*3/uL Abs Immat Gran (auto) 0.18 H (0.00-0.03) X10*3/uL Absolute Neuts (auto) 14.5 H (2.0-8.3) x10*3/uL Absolute Nucleated RBC 0.000 (0.0-0.012) X10*3/uL Nucleated RBC % (auto) 0.0 (0.0-0.2) /100WBC Smear Tech's Comments VERIFIED O2 Saturation 77.0 % ABG pH at Pt Temp 7.25 L (7.35-7.45) ABG pCO2 at Pt Temp 55 H (32-45) mmHg ABG pO2 at Pt Temp 55 L (83-108) mmHg ABG HCO3 24 (22-26) mmol/L ABG Base Excess (Actual) -3.0 mmol/L VBG pH (7.32-7.43) VBG pCO2 mmHg VBG pO2 mmHg VBG HCO3 (22-26) mmol/L VBG O2 Saturation % VBG Base Excess mmol/L Sodium 140 (135-145) mmol/L Potassium 5.0 (3.3-5.1) mmol/L Chloride 111 H (96-108) mmol/L Carbon Dioxide 23 (22-29) mmol/L Anion Gap 11 L (12-20) BUN 36 H (9-16) mg/dL Creatinine 1.33 (0.5-1.4) mg/dL Estim Creat Clear Calc 46.5 Estimated GFR 39 Random Glucose 197 H (60-115) mg/dL Lactic Acid 0.7 (0.5-2.0) mmol/L Calcium 9.7 D (8.4-10.2) mg/dL Magnesium 2.2 (1.6-2.6) mg/dL Total Bilirubin 0.4 (0.0-1.0) mg/dL AST 11 (5-31) U/L ALT 8 (0-31) U/L Alkaline Phosphatase 68 (39-117) U/L Troponin I High Sens 12.7 D (<3.5-17.0) ng/L B-Natriuretic Peptide 1175 H (<100) pg/mL Total Protein 5.9 L (6.5-8.0) g/dL Albumin 3.0 L (3.5-5.0) g/dL Urine Color Urine Appearance Urine pH (5.0-9.0) Ur Specific [place] (1.005-1.025) Urine Protein (Neg-Trace) mg/dL Urine Glucose (UA) (Negative) mg/dL Urine Ketones (Negative) mg/dL Urine Blood (Negative) Urine Nitrite (Negative) Ur Leukocyte Esterase (Negative) Urine RBC (0-2) /HPF Urine WBC (0-5) /HPF Ur Squamous Epith Cells (0-2) /HPF Urine Bacteria (None Seen) Hyaline Casts (0-2) /LPF Urine Yeast COVID-19 (DENY) Negative (Negative) COVID-19 Clin Com See Note 12/12/22 12/12/22 12/12/22 Range/Units 08:04 10:19 10:27 WBC (4.8-10.8) X10*3/uL RBC (4.20-5.50) X10*6/uL Hgb (12.0-16.0) g/dl Hct (37.0-47.0) % MCV (80.0-98.0) fL MCH (27.0-33.0) pg MCHC (31.0-35.0) g/dl RDW (11.0-16.0) % Plt Count (160-400) X10*3/uL MPV (9.4-12.3) fL Immature Gran % (Auto) (0.0-0.4) % Neut % (Auto) (45-73) % Lymph % (Auto) (20-40) % Crockett % (Auto) (2-11) % Eos % (Auto) (0-4) % Baso % (Auto) (0-2) % Lymph # (Auto) (1.2-4.9) X10*3/uL [place] # (Auto) (0.1-1.2) X10*3/uL Eos # (Auto) (0.0-0.4) X10*3/uL Baso # (Auto) (0.0-0.2) X10*3/uL Abs Immat Gran (auto) (0.00-0.03) X10*3/uL Absolute Neuts (auto) (2.0-8.3) x10*3/uL Absolute Nucleated RBC (0.0-0.012) X10*3/uL Nucleated RBC % (auto) (0.0-0.2) /100WBC Smear Tech's Comments O2 Saturation 91.0 % ABG pH at Pt Temp 7.34 L (7.35-7.45) ABG pCO2 at Pt Temp 40 (32-45) mmHg ABG pO2 at Pt Temp 62 L (83-108) mmHg ABG HCO3 22 (22-26) mmol/L ABG Base Excess (Actual) -2.8 mmol/L VBG pH 7.25 L (7.32-7.43) VBG pCO2 51 mmHg VBG pO2 64 mmHg VBG HCO3 23 (22-26) mmol/L VBG O2 Saturation 88.0 % VBG Base Excess -4.2 mmol/L Sodium (135-145) mmol/L Potassium (3.3-5.1) mmol/L Chloride (96-108) mmol/L Carbon Dioxide (22-29) mmol/L Anion Gap (12-20) BUN (9-16) mg/dL Creatinine (0.5-1.4) mg/dL Estim Creat Clear Calc Estimated GFR Random Glucose (60-115) mg/dL Lactic Acid (0.5-2.0) mmol/L Calcium (8.4-10.2) mg/dL Magnesium (1.6-2.6) mg/dL Total Bilirubin (0.0-1.0) mg/dL AST (5-31) U/L ALT (0-31) U/L Alkaline Phosphatase (39-117) U/L Troponin I High Sens (<3.5-17.0) ng/L B-Natriuretic Peptide (<100) pg/mL Total Protein (6.5-8.0) g/dL Albumin (3.5-5.0) g/dL Urine Color Yellow Urine Appearance Turbid Urine pH 5.5 (5.0-9.0) Ur Specific [place] 1.015 (1.005-1.025) Urine Protein 300 (3+) H (Neg-Trace) mg/dL Urine Glucose (UA) Negative (Negative) mg/dL Urine Ketones Trace (Negative) mg/dL Urine Blood Large (3+) H (Negative) Urine Nitrite Negative (Negative) Ur Leukocyte Esterase Large (3+) H (Negative) Urine RBC >20 H (0-2) /HPF Urine WBC >50 H (0-5) /HPF Ur Squamous Epith Cells >20 (0-2) /HPF Urine Bacteria 1+ (None Seen) Hyaline Casts 0-2 (0-2) /LPF Urine Yeast Present COVID-19 (DENY) (Negative) COVID-19 Clin Com 12/12/22 Range/Units 10:29 WBC (4.8-10.8) X10*3/uL RBC (4.20-5.50) X10*6/uL Hgb (12.0-16.0) g/dl Hct (37.0-47.0) % MCV (80.0-98.0) fL MCH (27.0-33.0) pg MCHC (31.0-35.0) g/dl RDW (11.0-16.0) % Plt Count (160-400) X10*3/uL MPV (9.4-12.3) fL Immature Gran % (Auto) (0.0-0.4) % Neut % (Auto) (45-73) % Lymph % (Auto) (20-40) % [place] % (Auto) (2-11) % Eos % (Auto) (0-4) % Baso % (Auto) (0-2) % Lymph # (Auto) (1.2-4.9) X10*3/uL [place] # (Auto) (0.1-1.2) X10*3/uL Eos # (Auto) (0.0-0.4) X10*3/uL Baso # (Auto) (0.0-0.2) X10*3/uL Abs Immat Gran (auto) (0.00-0.03) X10*3/uL Absolute Neuts (auto) (2.0-8.3) x10*3/uL Absolute Nucleated RBC (0.0-0.012) X10*3/uL Nucleated RBC % (auto) (0.0-0.2) /100WBC Smear Tech's Comments O2 Saturation % ABG pH at Pt Temp (7.35-7.45) ABG pCO2 at Pt Temp (32-45) mmHg ABG pO2 at Pt Temp (83-108) mmHg ABG HCO3 (22-26) mmol/L ABG Base Excess (Actual) mmol/L VBG pH (7.32-7.43) VBG pCO2 mmHg VBG pO2 mmHg VBG HCO3 (22-26) mmol/L VBG O2 Saturation % VBG Base Excess mmol/L Sodium (135-145) mmol/L Potassium (3.3-5.1) mmol/L Chloride (96-108) mmol/L Carbon Dioxide (22-29) mmol/L Anion Gap (12-20) BUN (9-16) mg/dL Creatinine (0.5-1.4) mg/dL Estim Creat Clear Calc Estimated GFR Random Glucose (60-115) mg/dL Lactic Acid (0.5-2.0) mmol/L Calcium (8.4-10.2) mg/dL Magnesium (1.6-2.6) mg/dL Total Bilirubin (0.0-1.0) mg/dL AST (5-31) U/L ALT (0-31) U/L Alkaline Phosphatase (39-117) U/L Troponin I High Sens 14.2 (<3.5-17.0) ng/L B-Natriuretic Peptide (<100) pg/mL Total Protein (6.5-8.0) g/dL Albumin (3.5-5.0) g/dL Urine Color Urine Appearance Urine pH (5.0-9.0) Ur Specific [place] (1.005-1.025) Urine Protein (Neg-Trace) mg/dL Urine Glucose (UA) (Negative) mg/dL Urine Ketones (Negative) mg/dL Urine Blood (Negative) Urine Nitrite (Negative) Ur Leukocyte Esterase (Negative) Urine RBC (0-2) /HPF Urine WBC (0-5) /HPF Ur Squamous Epith Cells (0-2) /HPF Urine Bacteria (None Seen) Hyaline Casts (0-2) /LPF Urine Yeast COVID-19 (DENY) (Negative) COVID-19 Clin Com Independent Interpretation I performed an independent interpretation of an: Plain X-Ray Radiology Impression Discussion of test interpretation with radiology: I have reviewed the radiologist's reading. Core Measures AMI core measures followed: Yes Measure exclusions: not indicated Critical Care Time Critical Care Time Critical Care Time: Yes Total Critical Care Time: 60 Attestation: I attest to this time spent taking care of the patient, obtaining history, physical, reviewing labs, imaging, speaking to my attending, speaking to specialist. Discharge Plan Discharge Clinical Impression: Congestive heart failure Patient Disposition: Home, Self-Care Prescriptions: No Action levothyroxine 175 mcg tablet 175 mcg PO DAILY@0600 citalopram 20 mg tablet 40 mg PO DAILY simvastatin 20 mg tablet 20 mg PO BEDTIME chlordiazepoxide HCl 10 mg capsule 10 mg PO BEDTIME insulin lispro protamin-lispro 100 unit/mL (75-25) insulin pen 0 unit subcut QIDACHS Protocol: Insulin Correction Scale Less than or equal to 110 ---- Give (units): 0 111 to 150 Give (units): 0 151 to 200 Give (units): 2 201 to 250 Give (units): 4 251 to 300 Give (units): 6 301 to 350 Give (units): 8 Greater than 350 Give (units): 10 Call MD if Blood Glucose > : 350 Januvia 100 mg tablet 100 mg PO DAILY Fleet Enema 19-7 gram/118 mL Enema 118 ml ME BEDTIME PRN (Reason: Constipation) guaifenesin 600 mg Tablet Extended Release 12hr 600 mg PO BID acetaminophen [Tylenol] 325 mg Tablet 650 mg PO Q4H PRN (Reason: Pain (Scale Score 4-6)) polyethylene glycol 3350 [Miralax] 17 gram/dose Powder 17 g PO BID amlodipine 10 mg tablet 10 mg PO DAILY lorazepam 0.5 mg tablet 0.5 mg PO BID PRN (Reason: Anxiety) bisacodyl 10 mg Suppository 10 mg ME DAILY PRN (Reason: Constipation) hydroxyzine HCl 25 mg tablet 25 mg PO DAILY hydroxychloroquine 200 mg tablet 200 mg PO BID magnesium 200 mg Tablet 400 mg PO DAILY biotin 5 mg Tablet 5 mg PO DAILY riboflavin (vitamin B2) 400 mg Tablet 400 mg PO DAILY Calquence (acalabrutinib mal) 100 mg Tablet 100 mg PO Q12H Qty: 60 3RF Incruse Ellipta 62.5 mcg/actuation Blister With Device 1 inh INHALATION DAILY budesonide-formoterol [Symbicort] 160-4.5 mcg/actuation Hfa Aerosol Inhaler 2 puff INHALATION BID latanoprost 0.005 % drops 1 drp ophthalmic (eye) BEDTIME albuterol sulfate 0.63 mg/3 mL Solution For Nebulization 0.63 mg INHALATION Q2H PRN (Reason: Wheezing) sennosides [senna] 8.6 mg Tablet 17.2 mg PO DAILY PRN (Reason: Constipation) mzygnmlsab-yklkhxlceoebw-hast 50-325-40 mg tablet 1 tab PO Q6H PRN (Reason: Headache) prednisolone acetate 1 % drops,suspension 1 drp ophthalmic-Right DAILY metoprolol tartrate 50 mg Tablet 50 mg PO BID timolol maleate 0.5 % drops 1 drp ophthalmic-Right BID coenzyme Q10 [CoQ-10] 100 mg Capsule 150 mg PO DAILY melatonin 5 mg Tablet 5 mg PO BEDTIME Simbrinza 1-0.2 % drops,suspension 1 drp ophthalmic-Right BID insulin glargine [Lantus Solostar U-100 Insulin] 100 unit/mL (3 mL) insulin pen 16 unit subcut BID Hold Instructions: Resume on 05/10/22. Artificial Tears (cmc) 1 % Drops 1 drp OPHTHALMIC (EYE) BID meropenem 1 gram recon soln 1 g IV Q12H Qty: 28 0RF vancomycin 500 mg recon soln 500 mg IV DAILY 28 Days Qty: 28 0RF bumetanide 1 mg Tablet 1 mg PO DAILY Qty: 30 0RF Protocol: Hold for SBP< HOLD for SBP < : 90 levalbuterol HCl 1.25 mg/3 mL Solution For Nebulization 1.25 mg INHALATION QID potassium chloride 20 mEq Tablet,Er Particles/Crystals 40 meq PO DAILY Qty: 30 0RF sennosides-docusate sodium [Senna-S] 8.6-50 mg Tablet 1 tab-cap PO DAILY diphenhydramine-zinc acetate 2-0.1 % Cream 1 appl TOPICAL BID prednisone 1 mg Tablet 6 mg PO DAILY nystatin 100,000 unit/gram Powder 1 appl TOPICAL BID Referrals: Tam Corea MD [Primary Care Provider] - 2 days
--- NOTE | 2022-12-12 07:38 | PC.NURSE ---
Addendum entered by Maude Payne 12/12/22 10:17: blue rodarte discoloration noted on pt left and right lower extremities. Original Note: pt a&ox3. respirations even but labored. pt coming from [facility] after waking up short of breath, staff noticed she was 80% Room air so staff placed her on 2 L nasal cannula. on EMS arrival EMS placed pt on 10L non rebreather where pt was sating 93%. pt has expiratory and inspiratory crackles. pt denies chest pain. respiratory and provider at bedside.
[2022-12-12 08:03] LABS: ABG HCO3 24 mmol/L (22-26); ABG pCO2 55 mmHg (32-45); ABG pH 7.25 (7.35-7.45); ABG pO2 55 mmHg (83-108)
[2022-12-12 08:05] LABS: ABG Refer to POC result
[2022-12-12 08:09] LABS: Venous Blood Gas Refer to POC result
[2022-12-12 08:10] LABS: VBG Base Excess -4.2 mmol/L; VBG HCO3 23 mmol/L (22-26); VBG pCO2 51 mmHg; VBG pH 7.25 (7.32-7.43); VBG pO2 64 mmHg
[2022-12-12 08:11] LABS: Basophils Absolute Auto 0.1 X10*3/uL (0.0-0.2); Basophils Percent Auto 0.5 % (0-2); Eosinophils Absolute Auto 0.8 X10*3/uL (0.0-0.4); Eosinophils Percent Auto 4.1 % (0-4); Hematocrit 29.8 % (37.0-47.0); Hemoglobin 8.9 g/dl (12.0-16.0); Imm Gran Abs Auto 0.18 X10*3/uL (0.00-0.03); Lymphocytes Absolute Auto 1.6 X10*3/uL (1.2-4.9); Lymphocytes Percent Auto 8.7 % (20-40); MANUAL DIFF FLAG SCAN; Mean Corpuscular HGB Conc 29.9 g/dl (31.0-35.0); Mean Corpuscular Hemoglobin 25.6 pg (27.0-33.0); Mean Corpuscular Volume 85.9 fL (80.0-98.0); Mean Platelet Volume 12.7 fL (9.4-12.3); Monocytes Absolute Auto 1.7 X10*3/uL (0.1-1.2); Monocytes Percent Auto 8.9 % (2-11); Neutrophils Absolute Auto 14.5 x10*3/uL (2.0-8.3); Neutrophils Percent Auto 76.8 % (45-73); Platelet Count 207 X10*3/uL (160-400); Red Blood Count 3.47 X10*6/uL (4.20-5.50); Red Cell Distribution Width 17.6 % (11.0-16.0); SCAN SMEAR FLAG 1; White Blood Count 18.9 X10*3/uL (4.8-10.8)
--- NOTE | 2022-12-12 08:20 | PC.NURSE ---
respiratory at bedside placing pt on bipap. IPAP 18, Rate 14, EPAP 8, 02 28%. PT tolerating bipap well.
[2022-12-12 08:22] LABS: Lactic Acid 0.7 mmol/L (0.5-2.0)
[2022-12-12 08:26] LABS: Alanine Aminotransferase 8 U/L (0-31); Alkaline Phosphatase 68 U/L (39-117); Anion Gap 11 (12-20); Aspartate Amino Transferase 11 U/L (5-31); Bilirubin Total 0.4 mg/dL (0.0-1.0); Blood Urea Nitrogen 36 mg/dL (9-16); Calcium 9.7 mg/dL (8.4-10.2); Carbon Dioxide 23 mmol/L (22-29); Chloride 111 mmol/L (96-108); Creatinine Clr Calc Pharmacy 46.5; Estimated Glomerular Filt Rate 39; Glucose Random 197 mg/dL (60-115); Magnesium 2.2 mg/dL (1.6-2.6); Sodium 140 mmol/L (135-145); Total Protein 5.9 g/dL (6.5-8.0)
[2022-12-12 08:30] LABS: SLIDE REVIEW VERIFIED
--- NOTE | 2022-12-12 08:30 | PC.NURSE ---
pt coming in from [facility] for sob, pt is drowsy but easily awakes to voice command and answers questions appropriately, pt is tachypenic breathing about 30 upon arrival with labored breathing, ls diminished and some wheezing through out, pt denies pain at this time, pt lower extremities covered with blue discoloration all the way to the calf area, positive pedal pulses, pt wearing a depands and was incontinent of small amount of loose stool, pt coccyx red with a very small open wound on the left upper buttock. pt cleaned up and repositioned. pt put on bipap settings IPAP 18/rate 14 EPAP 8 and O2 28% pt tolerating good and improving respirations about 18-20 at this time
[2022-12-12 08:33] LABS: B Type Natriuretic Peptide 1175 pg/mL (<100); Troponin-I High Sensitivity 12.7 ng/L (<3.5-17.0)
[2022-12-12 08:33] LABS: COVID-19 Test Negative (Negative); IDNOW Serial# 08D9AD1C
--- NOTE | 2022-12-12 10:15 | PC.NURSE ---
16 FR gibson catheter placed, 10ml balloon inflate. pt tolerated procedure well. cloudy urine noted in gibson drainage bag.
--- NOTE | 2022-12-12 10:18 | PC.NURSE ---
respiratory at bedside removing pt off bipap currently.
[2022-12-12 10:29] LABS: Appearance Urine Turbid; Color Urine Yellow; Glucose Urine UA Negative (Negative); Leukocyte Esterase Urine Large (3+) (Negative); Nitrite Urine Negative (Negative); PH 5.5 (5.0-9.0); Specific Gravity - Urine 1.015 (1.005-1.025); UMIC TRIGGER UACC YES; Urine Blood Large (3+) (Negative); Urine Ketones Trace mg/dL (Negative); Urine Protein 300 (3+) mg/dL (Neg-Trace)
--- NOTE | 2022-12-12 10:31 | PC.NURSE ---
pt placed on 3 L nasal cannula.
[2022-12-12 10:32] LABS: ABG Refer to POC result
[2022-12-12] MEDS: Furosemide 20 MG/2 ML VIAL IVPUSH (10:32)
[2022-12-12 10:34] LABS: ABG Base Excess -2.8 mmol/L; ABG HCO3 22 mmol/L (22-26); ABG pCO2 40 mmHg (32-45); ABG pH 7.34 (7.35-7.45); ABG pO2 62 mmHg (83-108)
--- NOTE | 2022-12-12 10:36 | PC.NURSE ---
pt sats maintaining at 100%, pt titrated down to 2 L nasal cannula, current sat 100%
[2022-12-12 11:00] LABS: Bacteria Urine 1+ (None Seen); Hyaline Casts Urine 0-2 /LPF (0-2); RBC Urine >20 /HPF (0-2); Squamous Epithelial Cell Urine >20 /HPF (0-2); UACC Culture Trigger YES; WBC Urine >50 /HPF (0-5)
[2022-12-12 11:18] LABS: Troponin-I High Sensitivity 14.2 ng/L (<3.5-17.0)
--- NOTE | 2022-12-12 12:29 | PHA.MEDREC ---
Pharmacy Consult ? Medication Reconciliation Pharmacy has completed the medication reconciliation. Patient had med list from [facility].
--- NOTE | 2022-12-12 12:49 | PM.IMHP ---
History of Present Illness Date of Service: 12/12/22 Attending physician on admission: Krystal Guillen Chief Complaint: SOB Pt is a 72-year-old female with a PMH significant for?CKD 3, HFpEF, CLL, COPD not on home O2, Insulin-dependent diabetes type 2, LATONYA, heart block, obesity class 3, HTN, HLD, PVD, and hypothyroidism who presents to the ED from SNF with?increasing shortness of breath x4days. Patient was recently admitted to the hospital from 11/27-12/03/2022 for she was treated for UTI and bacteremia. Chavez catheter was placed by IR and patient was discharged to [facility] 2 weeks of IV meropenem to treat E coli (ESBL) and 28 days of IV vancomycin to treat MRSA bacteremia. Patient also notes was recently taken off supplemental O2 3 weeks ago after being on it for approximately 1 year. Patient states that symptoms began on Tuesday of this week when she began having increased shortness of breath. Patient is bedbound at baseline, and was noted to have increased work of breathing. SOB increased significantly this morning and patient was found to have altered mental status at SNF this morning. EMS found patient satting in the low 80s, improved to 93% on non-rebreather. Patient arrived to the ED and was placed on BiPAP with further improvement to O2 saturation. Patient was eventually weaned off BiPAP and placed on 2 L NC the saturation 98%. Mentation improved and patient no longer altered. Patient also states she had experienced brief moments of chest pain/pressure earlier in the week. Currently denies any chest pain/pressure, palpitations. No nausea, vomiting, diarrhea. Did have some diarrhea yesterday though none today. In the ED patient was tachypneic up to 24, hypotensive as low as 98/54. Patient was placed BiPAP and eventually weaned to nasal cannula where she is satting at 97%. Labs were significant for leukocytosis of 18.9 (chronically elevated), H&H 8.9/29.8, BMP 1175. UA positive for UTI. CXR showed cardiomegaly with mild pulmonary vascular congestion and bibasilar atelectasis. EKG demonstrated sinus rhythm with first-degree AV block, T-wave inversions in leads III and AVF. Pt was treated with Lasix 20 mg IV and 40 mg IV. Pt will be admitted to the hospital for treatment further evaluation of acute hypoxic respiratory failure in the setting of acute CHF exacerbation. Review of Systems Review of Systems: Increased shortness of breath Intermittent chest pain/pressure the past few days, currently none Diarrhea yesterday Denies fever, chills, nausea, vomiting, abdominal pain PMFSH Medical History Acute UTI Acute kidney injury superimposed on CKD Bradycardia Pleural effusion Acute respiratory failure Pneumonia due to COVID-19 virus Chronic lymphocytic leukemia (CLL), B-cell Dyspnea Congestive heart failure COVID-19 Hypoxia Influenza A CLL (chronic lymphocytic leukemia) Suspected deep tissue injury Klebsiella pneumonia Infection with ESBL Klebsiella oxytoca Lymphadenopathy, mediastinal Pleural effusion Congestive heart failure Essential hypertension COVID Lower extremity edema Migraine HTN (hypertension) Pseudotumor cerebri PVD (peripheral vascular disease) Obesity CKD (chronic kidney disease) Diabetes mellitus with insulin therapy Hypothyroidism HLD (hyperlipidemia) Family History Mother Heart attack, Onset Age: 92 Father Heart attack, Onset Age: 66 Other Diabetes Surgical History S/P appendectomy H/O cataract extraction H/O hysterectomy for benign disease Hx of cholecystectomy Social History Household Members: Family Household Members Other:: patient came from a rehab facility, been there since dec Housing: House Do you presently have visiting nurse or other home services: Yes Alcohol intake: never Patient Tobacco Use Status: Former Tobacco user Second Hand Smoke Exposure: No Use of substances other than those prescribed or required for medical reasons: No Advance Directives: Yes Advance Directives on File: Yes Advance Directives Date on File: 09/26/20 service: No Current occupational status: disabled Meds Allergies Allergy/AdvReac Type Severity Reaction Status Date / Time oxycodone [From Percocet] Allergy Intermediate Rash Verified 04/27/22 11:42 lisinopril Allergy Unknown Unknown Verified 04/27/22 11:42 Home Medications Medication Instructions Recorded Confirmed Last Taken Type chlordiazepoxide HCl 10 mg capsule 10 mg PO BEDTIME 10/08/21 12/12/22 Unknown History citalopram 20 mg tablet 20 mg PO DAILY 10/08/21 12/12/22 Unknown History insulin lispro protamine-lispro 0 unit subcut QIDACHS 10/08/21 12/12/22 Unknown History 100 unit/mL (75-25) subcutaneous pen levothyroxine 175 mcg tablet 175 mcg PO DAILY@0600 10/08/21 12/12/22 Unknown History simvastatin 20 mg tablet 20 mg PO BEDTIME 10/08/21 12/12/22 Unknown History sitagliptin phosphate 100 mg 100 mg PO DAILY 10/08/21 12/12/22 Unknown History tablet (Januvia) latanoprost 0.005 % eye drops 1 drp ophthalmic (eye) BEDTIME 11/20/21 12/12/22 Unknown History albuterol sulfate 0.63 mg/3 mL 0.63 mg inhalation Q2H PRN 02/16/22 12/12/22 Unknown History solution for nebulization Shortness Of Breath Or Wheezing brinzolamide 1 %-brimonidine 0.2 % 1 drp ophthalmic-Right BID 02/16/22 12/12/22 Unknown History eye drops,suspension (Simbrinza) pixkrryryk-tnegjktuqgxni-wiwrxkpa 1 tab PO Q6H PRN Headache 02/16/22 12/12/22 Unknown History 50 mg-325 mg-40 mg tablet coenzyme Q10 100 mg capsule 150 mg PO DAILY 02/16/22 12/12/22 Unknown History (CoQ-10) insulin glargine 100 unit/mL (3 16 unit subcut BID 02/16/22 12/12/22 Unknown History mL) subcutaneous pen (Lantus Solostar U-100 Insulin) melatonin 5 mg tablet 5 mg PO BEDTIME 02/16/22 12/12/22 Unknown History metoprolol tartrate 50 mg tablet 50 mg PO BID 02/16/22 12/12/22 Unknown History prednisolone acetate 1 % eye 1 drp ophthalmic-Right DAILY 02/16/22 12/12/22 Unknown History drops,suspension sennosides 8.6 mg tablet (senna) 17.2 mg PO DAILY PRN Constipation 02/16/22 12/12/22 Unknown History timolol maleate 0.5 % eye drops 1 drp ophthalmic-Right BID 02/16/22 12/12/22 Unknown History carboxymethylcellulose sodium 1 % 1 drp ophthalmic (eye) BID 03/15/22 12/12/22 Unknown History eye drops (Artificial Tears (carboxymethylcellulose)) budesonide-formoterol HFA 160 2 puff inhalation BID 04/27/22 12/12/22 Unknown History mcg-4.5 mcg/actuation aerosol inhaler (Symbicort) umeclidinium 62.5 mcg/actuation 1 inh inhalation DAILY 04/27/22 12/12/22 Unknown History blister powder for inhalation (Incruse Ellipta) acetaminophen 325 mg tablet 650 mg PO Q4H PRN Pain (Scale 06/08/22 12/12/22 Unknown History (Tylenol) Score 4-6) amlodipine 10 mg tablet 10 mg PO DAILY high blood pressure 06/08/22 12/12/22 Unknown History guaifenesin 600 mg tablet, 600 mg PO BID cough 06/08/22 12/12/22 Unknown History extended release 12 hr polyethylene glycol 3350 17 17 g PO BID 06/08/22 12/12/22 Unknown History gram/dose oral powder (Miralax) sodium phosphates 19 gram-7 118 ml IL BEDTIME PRN Constipation 06/08/22 12/12/22 Unknown History gram/118 mL enema (Fleet Enema) levalbuterol HCl 1.25 mg/3 mL 1.25 mg inhalation QID 07/30/22 12/12/22 Unknown History solution for nebulization biotin 5 mg tablet 5 mg PO DAILY 08/11/22 12/12/22 Unknown History bisacodyl 10 mg rectal suppository 10 mg [place] DAILY PRN Constipation 08/11/22 12/12/22 Unknown History hydroxychloroquine 200 mg tablet 200 mg PO BID 08/11/22 12/12/22 Unknown History hydroxyzine HCl 25 mg tablet 25 mg PO DAILY 08/11/22 12/12/22 Unknown History lorazepam 0.5 mg tablet 0.5 mg PO BID Anxiety 08/11/22 12/12/22 Unknown History magnesium 200 mg tablet 200 mg PO DAILY 08/11/22 12/12/22 Unknown History riboflavin (vitamin B2) 400 mg 400 mg PO DAILY 08/11/22 12/12/22 Unknown History tablet diphenhydramine-zinc acetate 2 1 appl topical BID 10/27/22 12/12/22 Unknown History %-0.1 % topical cream nystatin 100,000 unit/gram topical 1 appl topical BID 10/27/22 12/12/22 Unknown History powder prednisone 1 mg tablet 6 mg PO DAILY 10/27/22 12/12/22 Unknown History sennosides 8.6 mg-docusate sodium 1 tab-cap PO BEDTIME 10/27/22 12/12/22 Unknown History 50 mg tablet (Senna-S) acidophilus 100 million 1 cap PO BID 12/12/22 12/12/22 Unknown History cell-pectin, citrus 10 mg capsule magnesium hydroxide 400 mg/5 mL 30 ml PO DAILY PRN Constipation 12/12/22 12/12/22 Unknown History oral suspension (Milk of Magnesia) Physical Exam Vital Signs and Narrative: Vital Signs: Last Vital Signs Pulse 66 12/12/22 10:35 Resp 18 12/12/22 10:35 BP 139/73 12/12/22 10:35 Pulse Ox 100 12/12/22 10:35 O2 Del Method Nasal Cannula 12/12/22 10:35 O2 Flow Rate 2 12/12/22 10:35 BMI result Body Mass Index 52.4 Constitutional: Alert, in no acute distress. Mental Status: Oriented to person, place and time. Eyes: Pupils are equal, round, and reactive to light. Ear, Nose, and Throat: Oropharynx clear, mucous membranes moist. Ears and nose without deformities. Trachea midline. Respiratory: Clear to auscultation bilaterally. No wheezing, rales, or rhonchi. Diaphoretic breathing noted. Cardiovascular: S1, S2 regular. No murmurs, rubs, or gallops. Gastrointestinal: Abdomen soft, non-tender, non-distended, obese. Normal bowel sounds. Neurologic: Cranial nerves II-XII are grossly intact bilaterally. No focal neurological deficits. Moves all extremities spontaneously. Skin: Diffuse ecchymosis of right and. Musculoskeletal: No cyanosis or clubbing. Extremities: Nonpitting bilateral edema. Chronic venous stasis dermatitis. Psychiatric: Normal mood and affect. Results Labs 12/12/22 07:53 12/12/22 07:53 Labs: Laboratory Results - last 24 hr 12/12/22 12/12/22 12/12/22 07:53 07:57 08:00 MCV 85.9 MCH 25.6 L MCHC 29.9 L RDW 17.6 H Plt Count 207 D MPV 12.7 H Immature Gran % (Auto) 1.0 H Neut % (Auto) 76.8 H Lymph % (Auto) 8.7 L [place] % (Auto) 8.9 Eos % (Auto) 4.1 H Baso % (Auto) 0.5 Lymph # (Auto) 1.6 [place] # (Auto) 1.7 H Eos # (Auto) 0.8 H Baso # (Auto) 0.1 Abs Immat Gran (auto) 0.18 H Absolute Neuts (auto) 14.5 H Absolute Nucleated RBC 0.000 Nucleated RBC % (auto) 0.0 Smear Tech's Comments VERIFIED O2 Saturation 77.0 ABG pH at Pt Temp 7.25 L ABG pCO2 at Pt Temp 55 H ABG pO2 at Pt Temp 55 L ABG HCO3 24 ABG Base Excess (Actual) -3.0 VBG pH VBG pCO2 VBG pO2 VBG HCO3 VBG O2 Saturation VBG Base Excess Anion Gap 11 L Estim Creat Clear Calc 46.5 Estimated GFR 39 Random Glucose 197 H Lactic Acid 0.7 Calcium 9.7 D Magnesium 2.2 Total Bilirubin 0.4 AST 11 ALT 8 Alkaline Phosphatase 68 B-Natriuretic Peptide 1175 H Total Protein 5.9 L Albumin 3.0 L Urine Color Urine Appearance Urine pH Ur Specific [place] Urine Protein Urine Glucose (UA) Urine Ketones Urine Blood Urine Nitrite Ur Leukocyte Esterase Urine RBC Urine WBC Ur Squamous Epith Cells Urine Bacteria Hyaline Casts Urine Yeast COVID-19 (DENY) Negative COVID-19 Clin Com See Note 12/12/22 12/12/22 12/12/22 08:04 10:19 10:27 MCV MCH MCHC RDW Plt Count MPV Immature Gran % (Auto) Neut % (Auto) Lymph % (Auto) [place] % (Auto) Eos % (Auto) Baso % (Auto) Lymph # (Auto) [place] # (Auto) Eos # (Auto) Baso # (Auto) Abs Immat Gran (auto) Absolute Neuts (auto) Absolute Nucleated RBC Nucleated RBC % (auto) Smear Tech's Comments O2 Saturation 91.0 ABG pH at Pt Temp 7.34 L ABG pCO2 at Pt Temp 40 ABG pO2 at Pt Temp 62 L ABG HCO3 22 ABG Base Excess (Actual) -2.8 VBG pH 7.25 L VBG pCO2 51 VBG pO2 64 VBG HCO3 23 VBG O2 Saturation 88.0 VBG Base Excess -4.2 Anion Gap Estim Creat Clear Calc Estimated GFR Random Glucose Lactic Acid Calcium Magnesium Total Bilirubin AST ALT Alkaline Phosphatase B-Natriuretic Peptide Total Protein Albumin Urine Color Yellow Urine Appearance Turbid Urine pH 5.5 Ur Specific [place] 1.015 Urine Protein 300 (3+) H Urine Glucose (UA) Negative Urine Ketones Trace Urine Blood Large (3+) H Urine Nitrite Negative Ur Leukocyte Esterase Large (3+) H Urine RBC >20 H Urine WBC >50 H Ur Squamous Epith Cells >20 Urine Bacteria 1+ Hyaline Casts 0-2 Urine Yeast Present COVID-19 (DENY) COVID-19 Clin Com Imaging Radiologist's Impressions: Impressions Chest X-Ray 12/12/22 09:06 IMPRESSION: 1. Cardiomegaly with mild pulmonary vascular congestion. 2. Bibasilar atelectasis. 3. Right jugular central catheter tip in mid SVC. Assessment and Plan (1) Congestive heart failure: Status: Acute (2) MRSA bacteremia: Status: Acute Plan Pt is a 72-year-old female with a PMH significant for?CKD 3, HFpEF, CLL, COPD not on home O2, Insulin-dependent diabetes type 2, LATONYA, heart block, obesity class 3, HTN, HLD, PVD, and hypothyroidism who presents to the ED from SNF with?increasing shortness of breath x4 days. Pt will be admitted to the hospital for treatment further evaluation of acute hypoxic respiratory failure in the setting of acute CHF exacerbation. Acute hypoxic respiratory failure in the setting of acute on chronic diastolic heart failure exacerbation Likely d/t reduced home diuretics on last discharge and continued metoprolol Elevated BNP, increased SOB, CXR with increased pulmonary edema IV diuretics: Bumex 1 mg IV b.i.d. Will reduce metoprolol to 25 mg b.i.d. with goal to completely stop by discharge Follow lytes, Mag, I/O Daily weights, low-salt diet Titrate supplemental O2 >92, wean as tolerated Cardiology consult Monitor on telemetry Chronic leukocytosis Likely secondary to chronic steroid use Patient currently on prednisone 6 mg daily, unclear why Will begin prednisone taper, starting with prednisone 5 mg daily then reducing further Acute UTI (E coli ESBL)/ MRSA bacteremia Urine culture from last admission growing E coli ESBL positive and MRSA, 1/2 blood culture also positive for MRSA Chavez catheter in place Pt discharged on 12/03/2022 on 4 weeks of IV vancomycin to cover MRSA and 2 weeks of total IV meropenem for ESBL positive E coli Continue vanco, meropenem COPD Not in acute exacerbation Continue home inhalers HTN BP soft will hold antihypertensives for now Continue when warranted Insulin-dependent diabetes type 2 Hold home meds Will place on sliding scale insulin, Lantus Diabetic diet Obesity class 3 Weight loss encouraged Low-calorie diet Hypothyroidism Continue levothyroxine Full Code Attending:?Dr. Guillen DVT Prophylaxis: Lovenox Pt will require a hospitalization of at least two nights for treatment of?acute hypoxic respiratory failure in the setting of acute CHF exacerbation with IV diuretics. Time Spent With Patient Time: Total time managing care of this patient today ____ minutes. Quality Stroke Does the patient have a stroke diagnosis?: No VTE Prior VTE?: No VTE Risk Level:: Medical - moderate - high VTE Device Contraindication: Treatment Not Indicated VTE Drug Contraindication: N/A - Med Ordered
[2022-12-12] MEDS: Enoxaparin Sodium 40 MG/0.4 ML SYRINGE SUBCUT (15:04)
[2022-12-12] MEDS: Potassium Chloride ER 20 MEQ TAB.ER.PRT 40 MEQ PO (15:05)
[2022-12-12] MEDS: hydrOXYzine HCL 25 MG TABLET PO (15:05)
[2022-12-12] MEDS: predniSONE 5 MG TABLET PO (15:05)
[2022-12-12] MEDS: levalbuterol HCL 1.25 MG/3 ML VIAL.NEB INHALE ×2 (15:52→19:27)
--- NOTE | 2022-12-12 16:07 | PC.NURSE ---
report given to ronald morales at [facility] [place]
[2022-12-12 17:10] LABS: Glucose, Whole Blood 78 mg/dL (60-115)
[2022-12-12 17:30] LABS: Vancomycin Random 17.4 mcg/mL (15-20)
[2022-12-12] MEDS: 0.9 % Sodium Chloride Flush 3 ML SYRINGE IVFLUSH (17:58)
[2022-12-12] MEDS: Bumetanide 1 MG/4 ML VIAL IVPUSH (17:58)
[2022-12-12] MEDS: Meropenem 1 GM VIAL IV (18:03)
[2022-12-12 20:08] LABS: Glucose, Whole Blood 184 mg/dL (60-115)
[2022-12-12] MEDS: Atorvastatin Calcium 10 MG TABLET PO (20:59)
[2022-12-12] MEDS: Metoprolol Tartrate 25 MG TABLET PO (20:59)
[2022-12-12] MEDS: Hydroxychloroquine Sulfate 200 MG TABLET PO (20:59)
[2022-12-12] MEDS: Melatonin 3 MG TABLET 6 MG PO (20:59)
[2022-12-12] MEDS: guaiFENesin LA 600 MG TAB.ER.12H PO (20:59)
[2022-12-12] MEDS: Sennosides/Docusate Sodium TABLET 1 TAB PO (20:59)
[2022-12-12] MEDS: LORazepam 0.5 MG TABLET PO (20:59)
[2022-12-12] MEDS: polyethylene glycoL 3350 17 GM POWD.PACK PO (21:00)
[2022-12-12] MEDS: Insulin Lispro 100 UNIT/ML 3 ML VIAL SUBCUT (21:02)
[2022-12-12] MEDS: Latanoprost 0.005 % Ophth Sol 2.5 ML DROPS 1 DROP EYE-BOTH (22:00)
[2022-12-12] MEDS: timoloL maleate 0.5 % Oph Sol 5 ML DRBTL 1 DROP EYE-RIGHT (22:04)
[2022-12-13] VITALS (9 sets, daily range): BP systolic 113–146; BP diastolic 49–62; PULSE 67–84; RESP 15–20; TEMP 36.1–36.7; O2SAT 93–100
[2022-12-13] MEDS: Levothyroxine Sodium 175 MCG TABLET PO (05:23)
[2022-12-13] MEDS: Meropenem 1 GM VIAL IV ×2 (05:23→18:31)
[2022-12-13 07:50] LABS: Glucose, Whole Blood 98 mg/dL (60-115)
--- NOTE | 2022-12-13 08:19 | MHC.CM.PN ---
CM met with Patient at bedside and addressed IMM with her, providing Patient with the original and placing a copy on the chart. Goal is for Patient to return [facility]); CM has initiated and will follow for dc planning.
[2022-12-13 08:52] LABS: Hematocrit 28.4 % (37.0-47.0); Hemoglobin 8.5 g/dl (12.0-16.0); Mean Corpuscular HGB Conc 29.9 g/dl (31.0-35.0); Mean Corpuscular Hemoglobin 25.3 pg (27.0-33.0); Mean Corpuscular Volume 84.5 fL (80.0-98.0); Mean Platelet Volume 12.8 fL (9.4-12.3); Red Blood Count 3.36 X10*6/uL (4.20-5.50); Red Cell Distribution Width 17.2 % (11.0-16.0); White Blood Count 11.2 X10*3/uL (4.8-10.8)
[2022-12-13] MEDS: timoloL maleate 0.5 % Oph Sol 5 ML DRBTL 1 DROP EYE-RIGHT ×2 (08:54→20:13)
[2022-12-13] MEDS: 0.9 % Sodium Chloride Flush 3 ML SYRINGE IVFLUSH ×3 (08:54→20:14)
[2022-12-13] MEDS: prednisoLONE Acetate 1 % Oph Susp 5 ML DRPBTL 1 DROP EYE-RIGHT (08:54)
[2022-12-13] MEDS: Bumetanide 1 MG/4 ML VIAL IVPUSH ×2 (08:54→17:06)
[2022-12-13] MEDS: guaiFENesin LA 600 MG TAB.ER.12H PO ×2 (08:55→20:13)
[2022-12-13] MEDS: Escitalopram Oxalate 10 MG TABLET PO (08:55)
[2022-12-13] MEDS: Hydroxychloroquine Sulfate 200 MG TABLET PO ×2 (08:55→20:13)
[2022-12-13] MEDS: Magnesium Oxide 400 MG TABLET 200 MG PO (08:55)
[2022-12-13] MEDS: Metoprolol Tartrate 25 MG TABLET PO (08:55)
[2022-12-13] MEDS: Potassium Chloride ER 20 MEQ TAB.ER.PRT 40 MEQ PO (08:55)
[2022-12-13] MEDS: hydrOXYzine HCL 25 MG TABLET PO (08:56)
[2022-12-13] MEDS: Insulin Glargine,Hum.rec.anlog 100 UNIT/ML 10 ML VIAL 11 UNIT SUBCUT (08:56)
[2022-12-13] MEDS: LORazepam 0.5 MG TABLET PO ×2 (08:56→20:14)
[2022-12-13] MEDS: SITagliptin Phosphate 100 MG TABLET PO (08:56)
[2022-12-13 09:00] LABS: Platelet Count 119 X10*3/uL (160-400)
[2022-12-13 09:02] LABS: Vancomycin Random 15.5 mcg/mL (15-20)
[2022-12-13] MEDS: predniSONE 5 MG TABLET PO (09:49)
[2022-12-13] MEDS: vancomycin HCL 500 MG in 0.9 % Sodium Chloride 100 ML 110 MG IV (09:49)
[2022-12-13 09:59] LABS: Creatinine Clr Calc Pharmacy 63.8; Estimated Glomerular Filt Rate 57
--- NOTE | 2022-12-13 10:12 | HE.PHANOTE ---
RE: VANCO DOSING MAINTAIN CURRENT REGIMEN. EXPECTED AUC 447 AND TROUGH 16.1 AT [place].
--- NOTE | 2022-12-13 10:23 | P.CONCA_ITS ---
History of Present Illness History of Present Illness Date of Service: 12/13/22 Chief complaint: SOB Narrative: This is a cardiology consultation regarding congestive heart failure. Patient with multiple medical comorbidities including chronic kidney disease, heart failure with preserved ejection fraction, COPD, diabetes, obstructive sleep apnea, heart block, obesity among others. It seems that she has been admitted from SNF with increasing shortness of breath. She has been recently admitted to the hospital for UTI as well as bacteremia and has been on IV antibiotics. Also there is a note that she has been recently taken off supplemental oxygen after being on it for an year. Because of being increasingly short of breath, she has been sent to the emergency room and subsequently admitted. Apparently EMS found the patient satting in the low 80s and that improved 23% on non-rebreather. Then put on BiPAP. With this, her mentation apparently improved as well. Subsequently, admitted to the hospital with diagnosis of acute hypoxic respiratory failure/acute CHF exacerbation. Currently, patient states she is very comfortable and she is actually lying down flat with no issues. She states she has minimal activity at baseline and really cannot do anything at all. Minimal to no ambulation. Review of Systems 2 Review of Systems: Yes all other systems are reviewed and are negative Constitutional: Constitutional: Reports as per HPI and Reports no additional constitutional complaints Eyes: Eyes: Reports as per HPI and Denies no additional eye complaints ENT: Denies system reviewed and no additional complaints, except as documented and Reports as per HPI Cardiovascular: Cardiovascular: Reports as per HPI, Reports no additional cardiovascular complaints, Denies acrocyanosis, Denies cool extremities, Denies chest pain, Denies leg edema, Denies lightheadedness, Denies palpitations and Denies dyspnea Respiratory: Respiratory: Reports as per HPI, Denies no additional respiratory complaints and Denies dyspnea Gastrointestinal: Gastrointestinal: Reports as per HPI and Denies no additional gastrointestinal complaints Genitourinary: Genitourinary: Reports as per HPI Musculoskeletal: Musculoskeletal: Reports no additional musculoskeletal complaints and Reports as per HPI Integumentary/Breasts: Skin/Breast: Reports system reviewed and no additional complaints, except as docu Neurologic: Reports system reviewed and no additional complaints, except as documented and Reports as per HPI Psychiatric: Psychiatric: Reports no additional psychiatric complaints and Reports as per HPI Endocrine: Endocrine: Reports no additional endocrine complaints, Reports as per HPI and Denies palpitations Hematologic/Lymphatic: Hematologic/Lymphatic: Reports no additional hematologic/lymphatic complaints and Reports as per HPI Allergic/Immunologic: Allergic/Immunologic: Reports no additional allergic/immunologic complaints and Reports as per HPI FORMERLY [facility] Past Medical History Medical History Acute UTI Acute kidney injury superimposed on CKD Bradycardia Pleural effusion Acute respiratory failure Pneumonia due to COVID-19 virus Chronic lymphocytic leukemia (CLL), B-cell Dyspnea Congestive heart failure COVID-19 Hypoxia Influenza A CLL (chronic lymphocytic leukemia) Suspected deep tissue injury Klebsiella pneumonia Infection with ESBL Klebsiella oxytoca Lymphadenopathy, mediastinal Pleural effusion Congestive heart failure Essential hypertension COVID Lower extremity edema Migraine HTN (hypertension) Pseudotumor cerebri PVD (peripheral vascular disease) Obesity CKD (chronic kidney disease) Diabetes mellitus with insulin therapy Hypothyroidism HLD (hyperlipidemia) Family History Family History Mother Heart attack, Onset Age: 92 Father Heart attack, Onset Age: 66 Other Diabetes Surgical History Surgical History S/P appendectomy H/O cataract extraction H/O hysterectomy for benign disease Hx of cholecystectomy Social History Social History Household Members: Family Household Members Other:: patient came from a rehab facility, been there since dec Housing: House Do you presently have visiting nurse or other home services: No Alcohol intake: never Patient Tobacco Use Status: Former Tobacco user Smoked in Last 30 Days: No Patient Interested in Nicotine Replacement: No Patient Given Instructions on How to Stop Smoking: No Second Hand Smoke Exposure: No Use of substances other than those prescribed or required for medical reasons: No Currently Displaying Signs/Symptoms of Drug Intoxication Withdrawal: No Any prior treatment program specific to substance use: No Have you been hit, kicked, punched, or otherwise hurt by someone within the past year? If so, by whom?: No Do you feel safe in your current relationship?: No Is there a partner from a previous relationship who is making you feel unsafe now?: No Are you made to feel afraid or neglected: No Spiritual Healthcare Practices: temple Advance Directives: Yes Advance Directives on File: Yes Advance Directives Date on File: 09/26/20 Do you have thoughts of harming others: None Do you have a plan to hurt others: No Plan Recently lost weight without trying: No Eating poorly because of decreased appetite: No Patient : No : No Poor oral hygiene: No service: No Current occupational status: disabled Meds Allergies Allergy/AdvReac Type Severity Reaction Status Date / Time oxycodone [From Percocet] Allergy Intermediate Rash Verified 04/27/22 11:42 lisinopril Allergy Unknown Unknown Verified 04/27/22 11:42 Active Medications: Current Medications Acetaminophen (Acetaminophen 325 Mg Tablet) 650 mg PO Q4H PRN PRN Reason: Pain (Scale Score 4-6) Acetaminophen/Butalbital/Caffeine (Butalb/Acetamin/Caff 50/325/40 Tablet) 1 tab PO Q6H PRN PRN Reason: Headache Albuterol Sulfate (Albuterol Sulfate (0.042%) 1.25 Mg/3 Ml Vial.Neb) 0.63 mg INHALE Q2H PRN PRN Reason: Shortness Of Breath Or Wheezing Atorvastatin Calcium (Atorvastatin Calcium 10 Mg Tablet) 10 mg PO BEDTIME [facility] Last Admin: 12/12/22 20:59 Dose: 10 mg Bisacodyl (Bisacodyl 10 Mg Supp.Rect) 10 mg NE DAILY PRN PRN Reason: Constipation Bumetanide (Bumetanide 1 Mg/4 Ml Vial) 1 mg IVPUSH BID@0900,1700 [facility]; Protocol Last Admin: 12/13/22 08:54 Dose: 1 mg Dextrose (Dextrose 50 % 25 Gm/50 Ml Syringe) 25 gm IVPUSH Q15M PRN; Protocol PRN Reason: per Hypoglycemia Standing Ord. Enoxaparin Sodium (Enoxaparin Sodium 40 Mg/0.4 Ml Syringe) 40 mg SUBCUT Q24H [facility] Last Admin: 12/12/22 15:04 Dose: 40 mg Escitalopram Oxalate (Escitalopram Oxalate 10 Mg Tablet) 10 mg PO DAILY [facility] Last Admin: 12/13/22 08:55 Dose: 10 mg Fluticasone/Vilanterol (Fluticasone/Vilanterol 200/25 Blst.W.Dev) 1 puff INHALE RDAILY [facility] Last Admin: 12/13/22 07:37 Dose: Not Given Glucose (Glucose Gel 15 Gm Gel..Gram.) 15 gm PO Q15M PRN; Protocol PRN Reason: per Hypoglycemia Standing Ord. Guaifenesin (Guaifenesin La 600 Mg Tab.Er.12h) 600 mg PO BID [facility] Last Admin: 12/13/22 08:55 Dose: 600 mg Hydroxychloroquine Sulfate (Hydroxychloroquine Sulfate 200 Mg Tablet) 200 mg PO BID [facility] Last Admin: 12/13/22 08:55 Dose: 200 mg Hydroxyzine HCl (Hydroxyzine Hcl 25 Mg Tablet) 25 mg PO DAILY [facility] Last Admin: 12/13/22 08:56 Dose: 25 mg Vancomycin HCl 500 mg/ Sodium (Chloride) 110 mls @ 110 mls/hr IV Q24H [facility] Last Admin: 12/13/22 09:49 Dose: 110 mls/hr Insulin Glargine (Insulin Glargine,Hum.Rec.Anlog 100 Unit/Ml 10 Ml Vial) 11 unit SUBCUT DAILY [facility] Last Admin: 12/13/22 08:56 Dose: 11 unit Insulin Human Lispro (Insulin Lispro 100 Unit/Ml 3 Ml Vial) 0 unit SUBCUT QIDACHS [facility]; Protocol Last Admin: 12/13/22 07:57 Dose: Not Given Latanoprost (Latanoprost 0.005 % Ophth Mona 2.5 Ml Drops) 1 drop EYE-BOTH BEDTIME [facility] Last Admin: 12/12/22 22:00 Dose: 1 drop Levalbuterol HCl (Levalbuterol Hcl 1.25 Mg/3 Ml Vial.Neb) 1.25 mg INHALE RQID [facility] Last Admin: 12/13/22 07:37 Dose: Not Given Levothyroxine Sodium (Levothyroxine Sodium 175 Mcg Tablet) 175 mcg PO DAILY@0600 [facility] Last Admin: 12/13/22 05:23 Dose: 175 mcg Lorazepam (Lorazepam 0.5 Mg Tablet) 0.5 mg PO BID [facility] Last Admin: 12/13/22 08:56 Dose: 0.5 mg Magnesium Hydroxide (Milk Of Magnesia 30 Ml Oral.Susp) 30 ml PO DAILY PRN PRN Reason: Constipation Magnesium Oxide (Magnesium Oxide 400 Mg Tablet) 200 mg PO DAILY [facility] Last Admin: 12/13/22 08:55 Dose: 200 mg Melatonin (Melatonin 3 Mg Tablet) 6 mg PO BEDTIME [facility] Last Admin: 12/12/22 20:59 Dose: 6 mg Meropenem (Meropenem 1 Gm Vial) 1 gm IV Q12H [facility] Last Admin: 12/13/22 05:23 Dose: 1 gm Metoprolol Tartrate (Metoprolol Tartrate 25 Mg Tablet) 25 mg PO BID [facility]; Protocol Last Admin: 12/13/22 08:55 Dose: 25 mg Pt Own Med ( Acalabrutinib Maleate ) Calquence 100 Mg Tab 100 mg PO Q12H [facility] Last Admin: 12/13/22 08:54 Dose: 100 mg Ondansetron HCl (Ondansetron Hcl 4 Mg/2 Ml Vial) 4 mg IVPUSH Q8H PRN PRN Reason: Nausea and Vomiting Pharmacy Consult (Consult Rx Vancomycin Dosing) 1 each MISCELLANE DAILY PRN PRN Reason: Consult order Polyethylene Glycol (Polyethylene Glycol 3350 17 Gm Powd.Pack) 17 gm PO BID [facility] Last Admin: 12/13/22 08:56 Dose: Not Given Potassium Chloride (Potassium Chloride Er 20 Meq Tab.Er.Prt) 40 meq PO DAILY [facility] Last Admin: 12/13/22 08:55 Dose: 40 meq Prednisolone Acetate (Prednisolone Acetate 1 % Oph Susp 5 Ml Drpbtl) 1 drop EYE-RIGHT DAILY [facility] Last Admin: 12/13/22 08:54 Dose: 1 drop Prednisone (Prednisone 5 Mg Tablet) 5 mg PO DAILY [facility] Last Admin: 12/13/22 09:49 Dose: 5 mg Senna (Sennosides 8.6 Mg Tablet) 17.2 mg PO DAILY PRN PRN Reason: Constipation Senna/Docusate Sodium (Sennosides/Docusate Sodium Tablet) 1 tab PO BEDTIME [facility] Last Admin: 12/12/22 20:59 Dose: 1 tab Sitagliptin Phosphate (Sitagliptin Phosphate 100 Mg Tablet) 100 mg PO DAILY [facility] Last Admin: 12/13/22 08:56 Dose: 100 mg Sodium Biphosphate/Sodium Phosphate (Sodium Phosphate,[place]-Dibasic 133 Ml Enema) 118 ml NE BEDTIME PRN PRN Reason: Constipation Sodium Chloride (0.9 % Sodium Chloride Flush 3 Ml Syringe) 3 ml IVFLUSH QSHIFT [facility] Last Admin: 12/13/22 08:54 Dose: 3 ml Timolol Maleate (Timolol Maleate 0.5 % Oph Mona 5 Ml Drbtl) 1 drop EYE-RIGHT BID [facility] Last Admin: 12/13/22 08:54 Dose: 1 drop Tiotropium [place] (Tiotropium [place] 2.5 Mcg Inhaler) 2 puff INHALE RDAILY [facility] Last Admin: 12/13/22 07:37 Dose: Not Given Home Medications Medication Instructions Recorded Confirmed Last Taken Type chlordiazepoxide HCl 10 mg capsule 10 mg PO BEDTIME 10/08/21 12/12/22 Unknown History citalopram 20 mg tablet 20 mg PO DAILY 10/08/21 12/12/22 Unknown History insulin lispro protamine-lispro 0 unit subcut QIDACHS 10/08/21 12/12/22 Unknown History 100 unit/mL (75-25) subcutaneous pen levothyroxine 175 mcg tablet 175 mcg PO DAILY@0600 10/08/21 12/12/22 Unknown History simvastatin 20 mg tablet 20 mg PO BEDTIME 10/08/21 12/12/22 Unknown History sitagliptin phosphate 100 mg 100 mg PO DAILY 10/08/21 12/12/22 Unknown History tablet (Januvia) latanoprost 0.005 % eye drops 1 drp ophthalmic (eye) BEDTIME 11/20/21 12/12/22 Unknown History albuterol sulfate 0.63 mg/3 mL 0.63 mg inhalation Q2H PRN 02/16/22 12/12/22 Unknown History solution for nebulization Shortness Of Breath Or Wheezing brinzolamide 1 %-brimonidine 0.2 % 1 drp ophthalmic-Right BID 02/16/22 12/12/22 Unknown History eye drops,suspension (Simbrinza) cllmankcnt-gilzpoqcdnkyo-nokfxfmd 1 tab PO Q6H PRN Headache 02/16/22 12/12/22 Unknown History 50 mg-325 mg-40 mg tablet coenzyme Q10 100 mg capsule 150 mg PO DAILY 02/16/22 12/12/22 Unknown History (CoQ-10) insulin glargine 100 unit/mL (3 16 unit subcut BID 02/16/22 12/12/22 Unknown History mL) subcutaneous pen (Lantus Solostar U-100 Insulin) melatonin 5 mg tablet 5 mg PO BEDTIME 02/16/22 12/12/22 Unknown History metoprolol tartrate 50 mg tablet 50 mg PO BID 02/16/22 12/12/22 Unknown History prednisolone acetate 1 % eye 1 drp ophthalmic-Right DAILY 02/16/22 12/12/22 Unknown History drops,suspension sennosides 8.6 mg tablet (senna) 17.2 mg PO DAILY PRN Constipation 02/16/22 12/12/22 Unknown History timolol maleate 0.5 % eye drops 1 drp ophthalmic-Right BID 02/16/22 12/12/22 Unknown History carboxymethylcellulose sodium 1 % 1 drp ophthalmic (eye) BID 03/15/22 12/12/22 Unknown History eye drops (Artificial Tears (carboxymethylcellulose)) budesonide-formoterol HFA 160 2 puff inhalation BID 04/27/22 12/12/22 Unknown History mcg-4.5 mcg/actuation aerosol inhaler (Symbicort) umeclidinium 62.5 mcg/actuation 1 inh inhalation DAILY 04/27/22 12/12/22 Unknown History blister powder for inhalation (Incruse Ellipta) acetaminophen 325 mg tablet 650 mg PO Q4H PRN Pain (Scale 06/08/22 12/12/22 Unknown History (Tylenol) Score 4-6) amlodipine 10 mg tablet 10 mg PO DAILY high blood pressure 06/08/22 12/12/22 Unknown History guaifenesin 600 mg tablet, 600 mg PO BID cough 06/08/22 12/12/22 Unknown History extended release 12 hr polyethylene glycol 3350 17 17 g PO BID 06/08/22 12/12/22 Unknown History gram/dose oral powder (Miralax) sodium phosphates 19 gram-7 118 ml NE BEDTIME PRN Constipation 06/08/22 12/12/22 Unknown History gram/118 mL enema (Fleet Enema) levalbuterol HCl 1.25 mg/3 mL 1.25 mg inhalation QID 07/30/22 12/12/22 Unknown History solution for nebulization biotin 5 mg tablet 5 mg PO DAILY 08/11/22 12/12/22 Unknown History bisacodyl 10 mg rectal suppository 10 mg NE DAILY PRN Constipation 08/11/22 12/12/22 Unknown History hydroxychloroquine 200 mg tablet 200 mg PO BID 08/11/22 12/12/22 Unknown History hydroxyzine HCl 25 mg tablet 25 mg PO DAILY 08/11/22 12/12/22 Unknown History lorazepam 0.5 mg tablet 0.5 mg PO BID Anxiety 08/11/22 12/12/22 Unknown History magnesium 200 mg tablet 200 mg PO DAILY 08/11/22 12/12/22 Unknown History riboflavin (vitamin B2) 400 mg 400 mg PO DAILY 08/11/22 12/12/22 Unknown History tablet diphenhydramine-zinc acetate 2 1 appl topical BID 10/27/22 12/12/22 Unknown History %-0.1 % topical cream nystatin 100,000 unit/gram topical 1 appl topical BID 10/27/22 12/12/22 Unknown History powder prednisone 1 mg tablet 6 mg PO DAILY 10/27/22 12/12/22 Unknown History sennosides 8.6 mg-docusate sodium 1 tab-cap PO BEDTIME 10/27/22 12/12/22 Unknown History 50 mg tablet (Senna-S) acidophilus 100 million 1 cap PO BID 12/12/22 12/12/22 Unknown History cell-pectin, citrus 10 mg capsule magnesium hydroxide 400 mg/5 mL 30 ml PO DAILY PRN Constipation 12/12/22 12/12/22 Unknown History oral suspension (Milk of Magnesia) Physical Exam 2 Vital Signs: Vital Signs: Last Vital Signs Temp 97.3 F 12/13/22 07:38 Pulse 69 12/13/22 07:38 Resp 20 12/13/22 07:38 BP 118/56 L 12/13/22 07:38 Pulse Ox 100 12/13/22 07:38 O2 Del Method Nasal Cannula 12/13/22 07:38 O2 Flow Rate 1.5 12/13/22 07:38 BMI result Body Mass Index 52.4 Const: Other: Lying down in bed, flat, comfortable. Able to communicate without any difficulty. General: comfortable and no acute distress Orientation/consciousness: p atient oriented x3 HEENT: Other: Unremarkable Head: Yes normal to inspection Neck: Neck: Yes normal visual inspection Chest: Chest palpation & inspection: normal inspection of the chest Resp: Other: Difficult auscultation; possibly few basal crackles. Cardio: Palpation: normal PMI Heart sounds: S1 normal heart sound present, S2 normal heart sound present, no gallops, no murmurs and no rubs GI: Palpation (GI): Soft to palpation Back/Spine/Pelvis: Other: unremarkable Skin: General skin exam: no rashes or lesions noted Neuro: General: patient oriented x3 Extrem: Other: Chronic changes. Mild edema bilaterally. Psych: Mental Status: mental status grossly normal Objective Labs and Meds 12/13/22 08:08 12/13/22 08:08 Lab results: Laboratory Results - last 24 hr 12/12/22 12/12/22 12/12/22 10:19 10:27 10:29 WBC RBC Hgb Hct MCV MCH MCHC RDW Plt Count MPV Absolute Nucleated RBC Nucleated RBC % (auto) O2 Saturation 91.0 ABG pH at Pt Temp 7.34 L ABG pCO2 at Pt Temp 40 ABG pO2 at Pt Temp 62 L ABG HCO3 22 ABG Base Excess (Actual) -2.8 Creatinine Estim Creat Clear Calc Estimated GFR POC Glucose Magnesium Troponin I High Sens 14.2 Urine Color Yellow Urine Appearance Turbid Urine pH 5.5 Ur Specific [place] 1.015 Urine Protein 300 (3+) H Urine Glucose (UA) Negative Urine Ketones Trace Urine Blood Large (3+) H Urine Nitrite Negative Ur Leukocyte Esterase Large (3+) H Urine RBC >20 H Urine WBC >50 H Ur Squamous Epith Cells >20 Urine Bacteria 1+ Hyaline Casts 0-2 Urine Yeast Present Random Vancomycin 12/12/22 12/12/22 12/12/22 17:03 17:07 20:02 WBC RBC Hgb Hct MCV MCH MCHC RDW Plt Count MPV Absolute Nucleated RBC Nucleated RBC % (auto) O2 Saturation ABG pH at Pt Temp ABG pCO2 at Pt Temp ABG pO2 at Pt Temp ABG HCO3 ABG Base Excess (Actual) Creatinine Estim Creat Clear Calc Estimated GFR POC Glucose 78 184 H Magnesium Troponin I High Sens Urine Color Urine Appearance Urine pH Ur Specific [place] Urine Protein Urine Glucose (UA) Urine Ketones Urine Blood Urine Nitrite Ur Leukocyte Esterase Urine RBC Urine WBC Ur Squamous Epith Cells Urine Bacteria Hyaline Casts Urine Yeast Random Vancomycin 17.4 12/13/22 12/13/22 07:31 08:08 WBC 11.2 H RBC 3.36 L Hgb 8.5 L Hct 28.4 L MCV 84.5 MCH 25.3 L MCHC 29.9 L RDW 17.2 H Plt Count 119 L D MPV 12.8 H Absolute Nucleated RBC 0.000 Nucleated RBC % (auto) 0.0 O2 Saturation ABG pH at Pt Temp ABG pCO2 at Pt Temp ABG pO2 at Pt Temp ABG HCO3 ABG Base Excess (Actual) Creatinine 0.97 Estim Creat Clear Calc 63.8 Estimated GFR 57 POC Glucose 98 Magnesium 2.0 Troponin I High Sens Urine Color Urine Appearance Urine pH Ur Specific [place] Urine Protein Urine Glucose (UA) Urine Ketones Urine Blood Urine Nitrite Ur Leukocyte Esterase Urine RBC Urine WBC Ur Squamous Epith Cells Urine Bacteria Hyaline Casts Urine Yeast Random Vancomycin 15.5 ECG Interpretation: EKG with sinus rhythm at 70/Min; NE prolongation 220 millisecond; rightward axis; inferior T inversions. That was seen in the prior EKG as well. Assessment and Plan (1) Acute on chronic heart failure with preserved ejection fraction: Status: Acute (2) Acute respiratory failure with hypoxia: Status: Acute (3) Heart block AV second degree: Status: Acute Plan In the most recent echocardiogram, LVEF 60-65%. Heavily calcified mitral annulus/possible mitral stenosis. Possible aortic stenosis. Severe increase in right atrial pressure. Cardiac BNP is 1175. This is similar to the previous numbers. High sensitivity troponin is 14.2. Chest x-ray with cardiomegaly, mild pulmonary vascular congestion, bibasilar atelectasis. Overall, may treat for acute heart failure preserved ejection fraction. She has many comorbidities and very limited mobility and hence guarded prognosis. May continue with IV diuretics as currently on. Follow inputs/outputs closely. Considering the history of heart block issues in the past, stop the beta- blockers as previously advised in prior consult. Discussed with Dr. Talbert by Yamile Time Spent With Patient Time: Total time managing care of this patient today ____ minutes. Procedures Date of Service Date of Service: 12/13/22
[2022-12-13] MEDS: levalbuterol HCL 1.25 MG/3 ML VIAL.NEB INHALE ×3 (11:09→19:18)
[2022-12-13 12:24] LABS: Glucose, Whole Blood 172 mg/dL (60-115)
[2022-12-13] MEDS: Insulin Lispro 100 UNIT/ML 3 ML VIAL SUBCUT ×3 (12:37→20:19)
--- NOTE | 2022-12-13 13:47 | HO.PM.IMPN ---
Subjective Subjective Date of Service: 12/13/22 Interval History: Dyspnea improving even while lying flat Negative 1.5L thus far this admission No chest pain Review of Systems Review of Systems: Yes all other systems are reviewed and are negative Physical Exam Vital Signs: Vital Signs: Last Vital Signs Temp 98.0 F 12/13/22 11:38 Pulse 69 12/13/22 11:38 Resp 20 12/13/22 11:38 BP 113/49 L 12/13/22 11:38 Pulse Ox 100 12/13/22 11:38 O2 Del Method Nasal Cannula 12/13/22 11:38 O2 Flow Rate 1 12/13/22 11:38 BMI result Body Mass Index 52.4 Gen: in no acute distress HEENT: sclera anicteric, moist mucus membranes Neck: supple Lungs: bibasilar inspiratory crackles Heart: regular rate and rhythm, no murmurs Abd: soft, non-tender, non-distended, obese Ext: 1+ bilatearl lower extremity edema Skin: warm/well-perfused Neuro: alert and oriented x3, no focal findings Psych: appropriate affect Objective Data Active Medications Acetaminophen (Acetaminophen 325 Mg Tablet) 650 mg PO Q4H PRN PRN Reason: Pain (Scale Score 4-6) Acetaminophen/Butalbital/Caffeine (Butalb/Acetamin/Caff 50/325/40 Tablet) 1 tab PO Q6H PRN PRN Reason: Headache Albuterol Sulfate (Albuterol Sulfate (0.042%) 1.25 Mg/3 Ml Vial.Neb) 0.63 mg INHALE Q2H PRN PRN Reason: Shortness Of Breath Or Wheezing Atorvastatin Calcium (Atorvastatin Calcium 10 Mg Tablet) 10 mg PO BEDTIME [facility] Last Admin: 12/12/22 20:59 Dose: 10 mg Documented By: LES Bisacodyl (Bisacodyl 10 Mg Supp.Rect) 10 mg OR DAILY PRN PRN Reason: Constipation Bumetanide (Bumetanide 1 Mg/4 Ml Vial) 1 mg IVPUSH BID@0900,1700 [facility]; Protocol Last Admin: 12/13/22 08:54 Dose: 1 mg Documented By: DOTTY Dextrose (Dextrose 50 % 25 Gm/50 Ml Syringe) 25 gm IVPUSH Q15M PRN; Protocol PRN Reason: per Hypoglycemia Standing Ord. Enoxaparin Sodium (Enoxaparin Sodium 40 Mg/0.4 Ml Syringe) 40 mg SUBCUT Q24H [facility] Last Admin: 12/12/22 15:04 Dose: 40 mg Documented By: LAUREN Escitalopram Oxalate (Escitalopram Oxalate 10 Mg Tablet) 10 mg PO DAILY [facility] Last Admin: 12/13/22 08:55 Dose: 10 mg Documented By: DOTTY Fluticasone/Vilanterol (Fluticasone/Vilanterol 200/25 Blst.W.Dev) 1 puff INHALE RDAILY [facility] Last Admin: 12/13/22 07:37 Dose: Not Given Documented By: JUS Non-Admin Reason: Patient Asleep Glucose (Glucose Gel 15 Gm Gel..Gram.) 15 gm PO Q15M PRN; Protocol PRN Reason: per Hypoglycemia Standing Ord. Guaifenesin (Guaifenesin La 600 Mg Tab.Er.12h) 600 mg PO BID [facility] Last Admin: 12/13/22 08:55 Dose: 600 mg Documented By: DOTTY Hydroxychloroquine Sulfate (Hydroxychloroquine Sulfate 200 Mg Tablet) 200 mg PO BID [facility] Last Admin: 12/13/22 08:55 Dose: 200 mg Documented By: DOTTY Hydroxyzine HCl (Hydroxyzine Hcl 25 Mg Tablet) 25 mg PO DAILY [facility] Last Admin: 12/13/22 08:56 Dose: 25 mg Documented By: DOTTY Vancomycin HCl 500 mg/ Sodium (Chloride) 110 mls @ 110 mls/hr IV Q24H [facility] Last Infusion: 12/13/22 11:38 Dose: Infused Documented By: DOTTY Insulin Glargine (Insulin Glargine,Hum.Rec.Anlog 100 Unit/Ml 10 Ml Vial) 11 unit SUBCUT DAILY [facility] Last Admin: 12/13/22 08:56 Dose: 11 unit Documented By: DOTTY Insulin Human Lispro (Insulin Lispro 100 Unit/Ml 3 Ml Vial) 0 unit SUBCUT QIDACHS [facility]; Protocol Last Admin: 12/13/22 12:37 Dose: 2 unit Documented By: DOTTY Latanoprost (Latanoprost 0.005 % Ophth Mona 2.5 Ml Drops) 1 drop EYE-BOTH BEDTIME [facility] Last Admin: 12/12/22 22:00 Dose: 1 drop Documented By: LES Levalbuterol HCl (Levalbuterol Hcl 1.25 Mg/3 Ml Vial.Neb) 1.25 mg INHALE RQID [facility] Last Admin: 12/13/22 11:09 Dose: 1.25 mg Documented By: JUS Levothyroxine Sodium (Levothyroxine Sodium 175 Mcg Tablet) 175 mcg PO DAILY@0600 [facility] Last Admin: 12/13/22 05:23 Dose: 175 mcg Documented By: MÓNICA Lorazepam (Lorazepam 0.5 Mg Tablet) 0.5 mg PO BID [facility] Last Admin: 12/13/22 08:56 Dose: 0.5 mg Documented By: DOTTY Magnesium Hydroxide (Milk Of Magnesia 30 Ml Oral.Susp) 30 ml PO DAILY PRN PRN Reason: Constipation Magnesium Oxide (Magnesium Oxide 400 Mg Tablet) 200 mg PO DAILY [facility] Last Admin: 12/13/22 08:55 Dose: 200 mg Documented By: DOTTY Melatonin (Melatonin 3 Mg Tablet) 6 mg PO BEDTIME [facility] Last Admin: 12/12/22 20:59 Dose: 6 mg Documented By: LES Meropenem (Meropenem 1 Gm Vial) 1 gm IV Q12H [facility] Last Admin: 12/13/22 05:23 Dose: 1 gm Documented By: MÓNICA Pt Own Med ( Acalabrutinib Maleate ) Calquence 100 Mg Tab 100 mg PO Q12H [facility] Last Admin: 12/13/22 08:54 Dose: 100 mg Documented By: DOTTY Ondansetron HCl (Ondansetron Hcl 4 Mg/2 Ml Vial) 4 mg IVPUSH Q8H PRN PRN Reason: Nausea and Vomiting Pharmacy Consult (Consult Rx Vancomycin Dosing) 1 each MISCELLANE DAILY PRN PRN Reason: Consult order Polyethylene Glycol (Polyethylene Glycol 3350 17 Gm Powd.Pack) 17 gm PO BID [facility] Last Admin: 12/13/22 08:56 Dose: Not Given Documented By: DOTTY Non-Admin Reason: having loose BM Potassium Chloride (Potassium Chloride Er 20 Meq Tab.Er.Prt) 40 meq PO DAILY [facility] Last Admin: 12/13/22 08:55 Dose: 40 meq Documented By: DOTTY Prednisolone Acetate (Prednisolone Acetate 1 % Oph Susp 5 Ml Drpbtl) 1 drop EYE-RIGHT DAILY [facility] Last Admin: 12/13/22 08:54 Dose: 1 drop Documented By: DOTTY Prednisone (Prednisone 5 Mg Tablet) 5 mg PO DAILY [facility] Last Admin: 12/13/22 09:49 Dose: 5 mg Documented By: DOTTY Senna (Sennosides 8.6 Mg Tablet) 17.2 mg PO DAILY PRN PRN Reason: Constipation Senna/Docusate Sodium (Sennosides/Docusate Sodium Tablet) 1 tab PO BEDTIME [facility] Last Admin: 12/12/22 20:59 Dose: 1 tab Documented By: LES Sitagliptin Phosphate (Sitagliptin Phosphate 100 Mg Tablet) 100 mg PO DAILY [facility] Last Admin: 12/13/22 08:56 Dose: 100 mg Documented By: DOTTY Sodium Biphosphate/Sodium Phosphate (Sodium Phosphate,Allen-Dibasic 133 Ml Enema) 118 ml OR BEDTIME PRN PRN Reason: Constipation Sodium Chloride (0.9 % Sodium Chloride Flush 3 Ml Syringe) 3 ml IVFLUSH QSHIFT [facility] Last Admin: 12/13/22 08:54 Dose: 3 ml Documented By: DOTTY Timolol Maleate (Timolol Maleate 0.5 % Oph Mona 5 Ml Drbtl) 1 drop EYE-RIGHT BID [facility] Last Admin: 12/13/22 08:54 Dose: 1 drop Documented By: DOTTY Tiotropium Axtell (Tiotropium Axtell 2.5 Mcg Inhaler) 2 puff INHALE RDAILY [facility] Last Admin: 12/13/22 07:37 Dose: Not Given Documented By: JUS Non-Admin Reason: Patient Asleep Labs 12/13/22 08:08 12/13/22 08:08 Labs: Laboratory Results - last 24 hr 12/12/22 12/12/22 12/12/22 17:03 17:07 20:02 MCV MCH MCHC RDW Plt Count MPV Absolute Nucleated RBC Nucleated RBC % (auto) Estim Creat Clear Calc Estimated GFR POC Glucose 78 184 H Magnesium Random Vancomycin 17.4 12/13/22 12/13/22 12/13/22 07:31 08:08 11:47 MCV 84.5 MCH 25.3 L MCHC 29.9 L RDW 17.2 H Plt Count 119 L D MPV 12.8 H Absolute Nucleated RBC 0.000 Nucleated RBC % (auto) 0.0 Estim Creat Clear Calc 63.8 Estimated GFR 57 POC Glucose 98 172 H Magnesium 2.0 Random Vancomycin 15.5 Microbiology Microbiology Results: Microbiology 12/12/22 08:37 Blood Culture - Preliminary Blood - Venous No growth after 24 hours. 12/12/22 Unknown Urine Culture - Preliminary Urine Catheterized - Turner Catheter Yeast 12/12/22 07:53 Blood Culture - Preliminary Blood - Venous No growth after 24 hours. Assessment and Plan (1) Acute on chronic heart failure with preserved ejection fraction: Status: Acute Plan d2 72yo M with CKD3, HFpEF, CLL, COPD not on home O2, DM2, LATONYA, hx heart block, morbid obesity, HTN, HLD, PVD, hypothyroidism sent in from SNF with 4d of worsening dyspnea admitted for acute hypoxia due to CHF exacerbation acute hypoxia due to CHF exacerbation - suspected due to reduced dose of home diuretics on last discharge - continue IV bumetanide - d/c metoprolol as recommended previously by cardiology due to heart block with severe bradycardia requiring dopamine infusion - Cardiology consulted - monitor weights, lytes, BNP CLL - conitnue acalabrutinib, prednisone recent ESBL UTI - continue meropenem through [facility], total 2 wk recent MRSA bacteremia - continue IV vancomycin through [facility], total 4 wk COPD, not in acute exac - continue home controller inhalers DM2 - basal-bolus insulin, sitagliptin mood disorder - continue escitalopram, lorazepam, hydroxyzine HLD - statin morbid obesity - diet/exercise counseling hypothyroidism - continue LT4 VTE ppx - LMWH dispo - STR bed hold In my clinical judgment, the patient requires continued inpatient hospitalization for the following reasons: IV diuresis Time Spent With Patient Time: Total time managing care of this patient today ___35_ minutes. Quality Stroke Does the patient have a stroke diagnosis?: No VTE Prior VTE?: No VTE Risk Level:: Medical - moderate - high VTE Device Contraindication: Treatment Not Indicated VTE Drug Contraindication: N/A - Med Ordered
[2022-12-13] MEDS: Enoxaparin Sodium 40 MG/0.4 ML SYRINGE SUBCUT (14:08)
--- NOTE | 2022-12-13 15:47 | HO.SKINPHOTO ---
Location: Category: Stage: Length: Width: Depth: cm Location: Category: Stage: Length: Width: Depth: cm Location: Category: Stage: Length: Width: Depth: cm Location: Category: Stage: Length: Width: Depth: cm Location: Category: Stage: Length: Width: Depth: cm Location: Category: Stage: Length: Width: Depth: cm
[2022-12-13 16:01] LABS: Glucose, Whole Blood 198 mg/dL (60-115)
[2022-12-13 20:08] LABS: Glucose, Whole Blood 240 mg/dL (60-115)
[2022-12-13] MEDS: polyethylene glycoL 3350 17 GM POWD.PACK PO (20:13)
[2022-12-13] MEDS: Atorvastatin Calcium 10 MG TABLET PO (20:13)
[2022-12-13] MEDS: Latanoprost 0.005 % Ophth Sol 2.5 ML DROPS 1 DROP EYE-BOTH (20:13)
[2022-12-13] MEDS: Melatonin 3 MG TABLET 6 MG PO (20:14)
[2022-12-13] MEDS: Sennosides/Docusate Sodium TABLET 1 TAB PO (20:14)
[2022-12-14] VITALS (9 sets, daily range): BP systolic 120–143; BP diastolic 56–64; PULSE 67–85; RESP 14–20; TEMP 36.3–36.9; O2SAT 96–99
[2022-12-14] MEDS: Meropenem 1 GM VIAL IV (05:16)
[2022-12-14] MEDS: Levothyroxine Sodium 175 MCG TABLET PO (05:16)
[2022-12-14 07:12] LABS: Glucose, Whole Blood 121 mg/dL (60-115)
[2022-12-14] MEDS: levalbuterol HCL 1.25 MG/3 ML VIAL.NEB INHALE ×3 (08:22→19:44)
[2022-12-14] MEDS: Fluticasone/Vilanterol 200/25 BLST.W.DEV 1 PUFF INHALE (08:30)
[2022-12-14 08:53] LABS: Vancomycin Random 16.1 mcg/mL (15-20)
[2022-12-14 08:55] LABS: Anion Gap 11 (12-20); Blood Urea Nitrogen 34 mg/dL (9-16); Calcium 8.9 mg/dL (8.4-10.2); Carbon Dioxide 25 mmol/L (22-29); Chloride 109 mmol/L (96-108); Creatinine Clr Calc Pharmacy 66.6; Estimated Glomerular Filt Rate 59; Glucose Random 130 mg/dL (60-115); Potassium 4.4 mmol/L (3.3-5.1); Sodium 141 mmol/L (135-145)
[2022-12-14] MEDS: Hydroxychloroquine Sulfate 200 MG TABLET PO ×2 (08:58→20:59)
[2022-12-14] MEDS: Escitalopram Oxalate 10 MG TABLET PO (08:58)
[2022-12-14] MEDS: 0.9 % Sodium Chloride Flush 3 ML SYRINGE IVFLUSH ×3 (08:58→21:07)
[2022-12-14] MEDS: LORazepam 0.5 MG TABLET PO ×2 (08:58→20:59)
[2022-12-14] MEDS: hydrOXYzine HCL 25 MG TABLET PO (08:59)
[2022-12-14] MEDS: predniSONE 1 MG TABLET 6 MG PO (08:59)
[2022-12-14] MEDS: Magnesium Oxide 400 MG TABLET 200 MG PO (08:59)
[2022-12-14] MEDS: Insulin Glargine,Hum.rec.anlog 100 UNIT/ML 10 ML VIAL 11 UNIT SUBCUT (08:59)
[2022-12-14] MEDS: SITagliptin Phosphate 100 MG TABLET PO (08:59)
[2022-12-14] MEDS: guaiFENesin LA 600 MG TAB.ER.12H PO ×2 (08:59→20:59)
[2022-12-14] MEDS: polyethylene glycoL 3350 17 GM POWD.PACK PO (09:00)
[2022-12-14] MEDS: Bumetanide 1 MG/4 ML VIAL IVPUSH ×2 (09:00→16:45)
[2022-12-14 09:01] LABS: B Type Natriuretic Peptide 565 pg/mL (<100)
[2022-12-14] MEDS: timoloL maleate 0.5 % Oph Sol 5 ML DRBTL 1 DROP EYE-RIGHT ×2 (09:02→21:04)
[2022-12-14] MEDS: prednisoLONE Acetate 1 % Oph Susp 5 ML DRPBTL 1 DROP EYE-RIGHT (09:02)
[2022-12-14] MEDS: vancomycin HCL 500 MG in 0.9 % Sodium Chloride 100 ML 110 MG IV (09:25)
--- NOTE | 2022-12-14 09:45 | PM.PNCARD ---
Subjective Subjective Date of Service: 12/14/22 Interval history: Patient states that she is feeling better. Breathing is improved. Review of Systems Review of Systems Yes all other systems are reviewed and are negative Constitutional: Reports as per HPI and Reports no additional constitutional complaints Eyes: Reports as per HPI and Denies no additional eye complaints Denies system reviewed and no additional complaints, except as documented and Reports as per HPI Cardiovascular: Reports as per HPI, Reports no additional cardiovascular complaints, Denies acrocyanosis, Denies cool extremities, Denies chest pain, Denies leg edema, Denies lightheadedness, Denies palpitations and Denies dyspnea Respiratory: Reports as per HPI, Denies no additional respiratory complaints and Denies dyspnea Gastrointestinal: Reports as per HPI and Denies no additional gastrointestinal complaints Genitourinary: Reports as per HPI Musculoskeletal: Reports no additional musculoskeletal complaints and Reports as per HPI Skin/Breast: Reports system reviewed and no additional complaints, except as docu Reports system reviewed and no additional complaints, except as documented and Reports as per HPI Psychiatric: Reports no additional psychiatric complaints and Reports as per HPI Endocrine: Reports no additional endocrine complaints, Reports as per HPI and Denies palpitations Hematologic/Lymphatic: Reports no additional hematologic/lymphatic complaints and Reports as per HPI Allergic/Immunologic: Reports no additional allergic/immunologic complaints and Reports as per HPI Physical Exam Vital Signs: Last Vital Signs Temp 98.5 F 12/14/22 07:20 Pulse 82 12/14/22 08:25 Resp 18 12/14/22 08:25 BP 129/57 L 12/14/22 07:20 Pulse Ox 96 12/14/22 07:20 O2 Del Method Nasal Cannula 12/14/22 07:20 O2 Flow Rate 1 12/14/22 07:20 BMI result Body Mass Index 52.4 Const Other: Lying down in bed, flat, comfortable. Able to communicate without any difficulty. General: comfortable and no acute distress Orientation/consciousness: patient oriented x3 HEENT Other: Unremarkable Head: Yes normal to inspection Neck Neck: Yes normal visual inspection Chest Chest palpation & inspection: normal inspection of the chest Resp Other: Difficult auscultation; possibly few basal crackles. Cardio Palpation: normal PMI Heart sounds: S1 normal heart sound present, S2 normal heart sound present, no gallops, no murmurs and no rubs GI Palpation (GI): Soft to palpation Back/Spine/Pelvis Other: unremarkable Skin General skin exam: no rashes or lesions noted Neuro General: patient oriented x3 Extrem Other: Chronic changes. Mild edema bilaterally. Psych Mental Status: mental status grossly normal Objective Labs and Meds 12/13/22 08:08 12/14/22 08:11 Lab results: Laboratory Results - last 24 hr 12/13/22 12/13/22 12/13/22 08:08 11:47 15:57 Sodium Potassium Chloride Carbon Dioxide Anion Gap BUN Creatinine 0.97 Estim Creat Clear Calc 63.8 Estimated GFR 57 POC Glucose 172 H 198 H Random Glucose Calcium Magnesium B-Natriuretic Peptide Random Vancomycin 12/13/22 12/14/22 12/14/22 19:55 07:03 08:11 Sodium 141 Potassium 4.4 Chloride 109 H Carbon Dioxide 25 Anion Gap 11 L BUN 34 H Creatinine 0.93 Estim Creat Clear Calc 66.6 Estimated GFR 59 POC Glucose 240 H 121 H Random Glucose 130 H Calcium 8.9 D Magnesium 2.0 B-Natriuretic Peptide 565 H Random Vancomycin 16.1 Progress Note: A&P Assessment and plan (1) Acute on chronic heart failure with preserved ejection fraction: Status: Acute (2) Acute respiratory failure with hypoxia: Status: Acute (3) Heart block AV second degree: Status: Acute Plan In the most recent echocardiogram, LVEF 60-65%. Heavily calcified mitral annulus/possible mitral stenosis. Possible aortic stenosis. Severe increase in right atrial pressure. Cardiac BNP is 1175. This is similar to the previous numbers. High sensitivity troponin is 14.2. Chest x-ray with cardiomegaly, mild pulmonary vascular congestion, bibasilar atelectasis. Overall, multiple medical comorbidities, essentially bed-bound state, recurrent admissions. Based on the input output data, she has negative 3 L. She seems fairly comfortable lying down in bed. No orthopnea. Probably switch her back to oral diuretics in the next day or so. Otherwise, beta-blockers have been stopped due to history of heart block. That should also help heart failure symptoms. Overall prognosis is guarded based on frailty, age, comorbidities, lack of activity at baseline, recurrent admissions. Goals of care to be discussed with family. Discussed with Dr. Talbert by [employer] Time Spent With Patient Time: Total time managing care of this patient today ____ minutes. Progress Note: Quality Stroke Does the patient have a stroke diagnosis?: No Procedures Date of Service Date of Service: 12/14/22
--- NOTE | 2022-12-14 10:47 | HO.PM.IMPN ---
Subjective Subjective Date of Service: 12/14/22 Interval History: dyspnea and orthopnea improving no chest pain Review of Systems Review of Systems: Yes all other systems are reviewed and are negative Physical Exam Vital Signs: Vital Signs: Last Vital Signs Temp 98.5 F 12/14/22 07:20 Pulse 82 12/14/22 08:25 Resp 18 12/14/22 08:25 BP 129/57 L 12/14/22 07:20 Pulse Ox 96 12/14/22 07:20 O2 Del Method Nasal Cannula 12/14/22 07:20 O2 Flow Rate 1 12/14/22 07:20 BMI result Body Mass Index 52.4 Gen: in no acute distress HEENT: sclera anicteric, moist mucus membranes Neck: supple Lungs: bibasilar inspiratory crackles Heart: regular rate and rhythm, no murmurs Abd: soft, non-tender, non-distended, obese Ext: 1+ bilateral lower extremity edema Skin: warm/well-perfused Neuro: alert and oriented x3, no focal findings Psych: appropriate affect Objective Data Active Medications Acetaminophen (Acetaminophen 325 Mg Tablet) 650 mg PO Q4H PRN PRN Reason: Pain (Scale Score 4-6) Acetaminophen/Butalbital/Caffeine (Butalb/Acetamin/Caff 50/325/40 Tablet) 1 tab PO Q6H PRN PRN Reason: Headache Albuterol Sulfate (Albuterol Sulfate (0.042%) 1.25 Mg/3 Ml Vial.Neb) 0.63 mg INHALE Q2H PRN PRN Reason: Shortness Of Breath Or Wheezing Atorvastatin Calcium (Atorvastatin Calcium 10 Mg Tablet) 10 mg PO BEDTIME [facility] Last Admin: 12/13/22 20:13 Dose: 10 mg Documented By: DARIEN Bisacodyl (Bisacodyl 10 Mg Supp.Rect) 10 mg WA DAILY PRN PRN Reason: Constipation Bumetanide (Bumetanide 1 Mg/4 Ml Vial) 1 mg IVPUSH BID@0900,1700 [facility]; Protocol Last Admin: 12/14/22 09:00 Dose: 1 mg Documented By: MONIQUE Dextrose (Dextrose 50 % 25 Gm/50 Ml Syringe) 25 gm IVPUSH Q15M PRN; Protocol PRN Reason: per Hypoglycemia Standing Ord. Enoxaparin Sodium (Enoxaparin Sodium 40 Mg/0.4 Ml Syringe) 40 mg SUBCUT Q24H [facility] Last Admin: 12/13/22 14:08 Dose: 40 mg Documented By: DOTTY Escitalopram Oxalate (Escitalopram Oxalate 10 Mg Tablet) 10 mg PO DAILY [facility] Last Admin: 12/14/22 08:58 Dose: 10 mg Documented By: MONIQUE Fluticasone/Vilanterol (Fluticasone/Vilanterol 200/25 Blst.W.Dev) 1 puff INHALE RDAILY [facility] Last Admin: 12/14/22 08:30 Dose: 1 puff Documented By: NINA Glucose (Glucose Gel 15 Gm Gel..Gram.) 15 gm PO Q15M PRN; Protocol PRN Reason: per Hypoglycemia Standing Ord. Guaifenesin (Guaifenesin La 600 Mg Tab.Er.12h) 600 mg PO BID [facility] Last Admin: 12/14/22 08:59 Dose: 600 mg Documented By: MONIQUE Hydroxychloroquine Sulfate (Hydroxychloroquine Sulfate 200 Mg Tablet) 200 mg PO BID [facility] Last Admin: 12/14/22 08:58 Dose: 200 mg Documented By: MONIQUE Hydroxyzine HCl (Hydroxyzine Hcl 25 Mg Tablet) 25 mg PO DAILY [facility] Last Admin: 12/14/22 08:59 Dose: 25 mg Documented By: MONIQUE Vancomycin HCl 500 mg/ Sodium (Chloride) 110 mls @ 110 mls/hr IV Q24H [facility] Last Admin: 12/14/22 09:25 Dose: 110 mls/hr Documented By: MONIQUE Insulin Glargine (Insulin Glargine,Hum.Rec.Anlog 100 Unit/Ml 10 Ml Vial) 11 unit SUBCUT DAILY [facility] Last Admin: 12/14/22 08:59 Dose: 11 unit Documented By: MONIQUE Insulin Human Lispro (Insulin Lispro 100 Unit/Ml 3 Ml Vial) 0 unit SUBCUT QIDACHS [facility]; Protocol Last Admin: 12/14/22 07:14 Dose: Not Given Documented By: MONIQUE Non-Admin Reason: No Insulin Coverage Latanoprost (Latanoprost 0.005 % Ophth Mona 2.5 Ml Drops) 1 drop EYE-BOTH BEDTIME [facility] Last Admin: 12/13/22 20:13 Dose: 1 drop Documented By: DARIEN Levalbuterol HCl (Levalbuterol Hcl 1.25 Mg/3 Ml Vial.Neb) 1.25 mg INHALE RQID [facility] Last Admin: 12/14/22 08:22 Dose: 1.25 mg Documented By: NINA Levothyroxine Sodium (Levothyroxine Sodium 175 Mcg Tablet) 175 mcg PO DAILY@0600 [facility] Last Admin: 12/14/22 05:16 Dose: 175 mcg Documented By: GEORGE Lorazepam (Lorazepam 0.5 Mg Tablet) 0.5 mg PO BID [facility] Last Admin: 12/14/22 08:58 Dose: 0.5 mg Documented By: MONIQUE Magnesium Hydroxide (Milk Of Magnesia 30 Ml Oral.Susp) 30 ml PO DAILY PRN PRN Reason: Constipation Magnesium Oxide (Magnesium Oxide 400 Mg Tablet) 200 mg PO DAILY [facility] Last Admin: 12/14/22 08:59 Dose: 200 mg Documented By: MONIQUE Comments: Melatonin (Melatonin 3 Mg Tablet) 6 mg PO BEDTIME [facility] Last Admin: 12/13/22 20:14 Dose: 6 mg Documented By: DARIEN Meropenem (Meropenem 1 Gm Vial) 1 gm IV Q12H [facility] Last Admin: 12/14/22 05:16 Dose: 1 gm Documented By: GEORGE Pt Own Med ( Acalabrutinib Maleate ) Calquence 100 Mg Tab 100 mg PO Q12H [facility] Last Admin: 12/14/22 09:02 Dose: 100 mg Documented By: MONIQUE Ondansetron HCl (Ondansetron Hcl 4 Mg/2 Ml Vial) 4 mg IVPUSH Q8H PRN PRN Reason: Nausea and Vomiting Pharmacy Consult (Consult Rx Vancomycin Dosing) 1 each MISCELLANE DAILY PRN PRN Reason: Consult order Polyethylene Glycol (Polyethylene Glycol 3350 17 Gm Powd.Pack) 17 gm PO BID [facility] Last Admin: 12/14/22 09:00 Dose: 17 gm Documented By: MONIQUE Potassium Chloride (Potassium Chloride Er 20 Meq Tab.Er.Prt) 40 meq PO DAILY [facility] Last Admin: 12/14/22 09:00 Dose: Not Given Documented By: MONIQUE Non-Admin Reason: Patient Refused Prednisolone Acetate (Prednisolone Acetate 1 % Oph Susp 5 Ml Drpbtl) 1 drop EYE-RIGHT DAILY [facility] Last Admin: 12/14/22 09:02 Dose: 1 drop Documented By: MONIQUE Prednisone (Prednisone 1 Mg Tablet) 6 mg PO DAILY [facility] Last Admin: 12/14/22 08:59 Dose: 6 mg Documented By: MONIQUE Senna (Sennosides 8.6 Mg Tablet) 17.2 mg PO DAILY PRN PRN Reason: Constipation Senna/Docusate Sodium (Sennosides/Docusate Sodium Tablet) 1 tab PO BEDTIME [facility] Last Admin: 12/13/22 20:14 Dose: 1 tab Documented By: DARIEN Sitagliptin Phosphate (Sitagliptin Phosphate 100 Mg Tablet) 100 mg PO DAILY [facility] Last Admin: 12/14/22 08:59 Dose: 100 mg Documented By: MONIQUE Sodium Biphosphate/Sodium Phosphate (Sodium Phosphate,[place]-Dibasic 133 Ml Enema) 118 ml WA BEDTIME PRN PRN Reason: Constipation Sodium Chloride (0.9 % Sodium Chloride Flush 3 Ml Syringe) 3 ml IVFLUSH QSHIFT [facility] Last Admin: 12/14/22 08:58 Dose: 3 ml Documented By: MONIQUE Timolol Maleate (Timolol Maleate 0.5 % Oph Mona 5 Ml Drbtl) 1 drop EYE-RIGHT BID [facility] Last Admin: 12/14/22 09:02 Dose: 1 drop Documented By: MONIQUE Tiotropium [place] (Tiotropium [place] 2.5 Mcg Inhaler) 2 puff INHALE RDAILY [facility] Last Admin: 12/14/22 08:30 Dose: 2 puff Documented By: NINA Labs 12/13/22 08:08 12/14/22 08:11 Labs: Laboratory Results - last 24 hr 12/13/22 12/13/22 12/13/22 11:47 15:57 19:55 Anion Gap Estim Creat Clear Calc Estimated GFR POC Glucose 172 H 198 H 240 H Random Glucose Calcium Magnesium B-Natriuretic Peptide Random Vancomycin 12/14/22 12/14/22 07:03 08:11 Anion Gap 11 L Estim Creat Clear Calc 66.6 Estimated GFR 59 POC Glucose 121 H Random Glucose 130 H Calcium 8.9 D Magnesium 2.0 B-Natriuretic Peptide 565 H Random Vancomycin 16.1 Microbiology Microbiology Results: Microbiology 12/12/22 08:37 Blood Culture - Preliminary Blood - Venous No growth after 48 hours. 12/12/22 07:53 Blood Culture - Preliminary Blood - Venous No growth after 48 hours. 12/12/22 Unknown Urine Culture - Preliminary Urine Catheterized - Turner Catheter Yeast Assessment and Plan (1) Acute on chronic heart failure with preserved ejection fraction: Status: Acute Plan d3 72yo M with CKD3, HFpEF, CLL, COPD not on home O2, DM2, LATONYA, hx heart block, morbid obesity, HTN, HLD, PVD, hypothyroidism sent in from SNF with 4d of worsening dyspnea admitted for acute hypoxia due to CHF exacerbation acute hypoxia due to CHF exacerbation - suspected due to reduced dose of home diuretics on last discharge - continue IV bumetanide 1 more day - d/c'ed metoprolol as recommended previously by cardiology due to heart block with severe bradycardia requiring dopamine infusion - Cardiology consulted - monitor weights, lytes, BNP CLL - conitnue acalabrutinib, prednisone recent ESBL UTI - completed 2 wk of meropenem recent MRSA bacteremia - continue IV vancomycin through [facility], total 4 wk COPD, not in acute exac - continue home controller inhalers DM2 - basal-bolus insulin, sitagliptin mood disorder - continue escitalopram, lorazepam, hydroxyzine HLD - statin morbid obesity - diet/exercise counseling hypothyroidism - continue LT4 VTE ppx - LMWH dispo - STR bed hold In my clinical judgment, the patient requires continued inpatient hospitalization for the following reasons: IV diuresis Time Spent With Patient Time: Total time managing care of this patient today __35__ minutes. Quality Stroke Does the patient have a stroke diagnosis?: No VTE Prior VTE?: No VTE Risk Level:: Medical - moderate - high VTE Device Contraindication: Treatment Not Indicated VTE Drug Contraindication: N/A - Med Ordered
[2022-12-14 10:59] LABS: Glucose, Whole Blood 210 mg/dL (60-115)
[2022-12-14] MEDS: Insulin Lispro 100 UNIT/ML 3 ML VIAL SUBCUT ×3 (11:34→21:08)
[2022-12-14 16:27] LABS: Glucose, Whole Blood 238 mg/dL (60-115)
[2022-12-14] MEDS: Enoxaparin Sodium 40 MG/0.4 ML SYRINGE SUBCUT (16:44)
[2022-12-14 19:55] LABS: Glucose, Whole Blood 234 mg/dL (60-115)
[2022-12-14] MEDS: Melatonin 3 MG TABLET 6 MG PO (21:00)
[2022-12-14] MEDS: Atorvastatin Calcium 10 MG TABLET PO (21:00)
[2022-12-14] MEDS: Latanoprost 0.005 % Ophth Sol 2.5 ML DROPS 1 DROP EYE-BOTH (21:04)
[2022-12-15] VITALS (8 sets, daily range): BP systolic 124–151; BP diastolic 58–66; PULSE 70–88; RESP 15–18; TEMP 36.2–36.9; O2SAT 93–100
[2022-12-15] MEDS: Levothyroxine Sodium 175 MCG TABLET PO (04:53)
[2022-12-15 07:23] LABS: Glucose, Whole Blood 133 mg/dL (60-115)
[2022-12-15] MEDS: levalbuterol HCL 1.25 MG/3 ML VIAL.NEB INHALE ×3 (08:36→16:23)
[2022-12-15] MEDS: Fluticasone/Vilanterol 200/25 BLST.W.DEV 1 PUFF INHALE (08:36)
[2022-12-15 08:59] LABS: Vancomycin Random 15.9 mcg/mL (15-20)
[2022-12-15 09:01] LABS: Anion Gap 11 (12-20); Blood Urea Nitrogen 32 mg/dL (9-16); Calcium 8.6 mg/dL (8.4-10.2); Carbon Dioxide 27 mmol/L (22-29); Chloride 106 mmol/L (96-108); Creatinine Clr Calc Pharmacy 69.5; Estimated Glomerular Filt Rate > 60; Glucose Random 124 mg/dL (60-115); Magnesium 1.9 mg/dL (1.6-2.6); Potassium 4.3 mmol/L (3.3-5.1); Sodium 140 mmol/L (135-145)
[2022-12-15 09:15] LABS: B Type Natriuretic Peptide 525 pg/mL (<100)
[2022-12-15] MEDS: LORazepam 0.5 MG TABLET PO (09:52)
[2022-12-15] MEDS: predniSONE 1 MG TABLET 6 MG PO (09:52)
[2022-12-15] MEDS: Hydroxychloroquine Sulfate 200 MG TABLET PO (09:52)
[2022-12-15] MEDS: Bumetanide 1 MG/4 ML VIAL IVPUSH (09:52)
[2022-12-15] MEDS: hydrOXYzine HCL 25 MG TABLET PO (09:52)
[2022-12-15] MEDS: Escitalopram Oxalate 10 MG TABLET PO (09:52)
[2022-12-15] MEDS: guaiFENesin LA 600 MG TAB.ER.12H PO (09:53)
[2022-12-15] MEDS: Magnesium Oxide 400 MG TABLET 200 MG PO (09:53)
[2022-12-15] MEDS: Potassium Chloride ER 20 MEQ TAB.ER.PRT 40 MEQ PO (09:53)
[2022-12-15] MEDS: SITagliptin Phosphate 100 MG TABLET PO (09:56)
[2022-12-15] MEDS: prednisoLONE Acetate 1 % Oph Susp 5 ML DRPBTL 1 DROP EYE-RIGHT (10:09)
[2022-12-15] MEDS: timoloL maleate 0.5 % Oph Sol 5 ML DRBTL 1 DROP EYE-RIGHT (10:09)
[2022-12-15] MEDS: 0.9 % Sodium Chloride Flush 3 ML SYRINGE IVFLUSH ×2 (10:09→17:00)
[2022-12-15 11:39] LABS: Glucose, Whole Blood 154 mg/dL (60-115)
[2022-12-15] MEDS: vancomycin HCL 500 MG in 0.9 % Sodium Chloride 100 ML 110 MG IV (11:59)
[2022-12-15] MEDS: Insulin Lispro 100 UNIT/ML 3 ML VIAL SUBCUT ×2 (11:59→16:59)
[2022-12-15 12:51] LABS: CDiff Gene PCR NEGATIVE (Negative)
--- NOTE | 2022-12-15 13:07 | PM.DS ---
DS: Providers Provider Date of Service: 12/15/22 Date of admission: 12/12/22 13:59 Date of discharge: 12/15/22 Primary care physician: Tam Corea MD Consults: 12/12/22 14:04 Consult to Cardiology Routine Consulting Provider: [facility] Reason for consultation: Acute CHF exacerbation DS: Diagnosis Discharge Diagnosis (1) Acute on chronic heart failure with preserved ejection fraction: Status: Acute (2) Acute respiratory failure with hypoxia: Status: Acute (3) Heart block AV second degree: Status: Acute (4) Morbid obesity: Status: Acute DS: Summary Hospital Course Hospital Course: from admission H+P by hospitalist Luis Milian, 12/12/22: Pt is a 72-year-old female with a PMH significant for?CKD 3, HFpEF, CLL, COPD not on home O2, Insulin-dependent diabetes type 2, LATONYA, heart block, obesity class 3, HTN, HLD, PVD, and hypothyroidism who presents to the ED from SNF with?increasing shortness of breath x4days. Patient was recently admitted to the hospital from 11/27-12/03/2022 for she was treated for UTI and bacteremia. Chavez catheter was placed by IR and patient was discharged to [facility] 2 weeks of IV meropenem to treat E coli (ESBL) and 28 days of IV vancomycin to treat MRSA bacteremia. Patient also notes was recently taken off supplemental O2 3 weeks ago after being on it for approximately 1 year. Patient states that symptoms began on Tuesday of this week when she began having increased shortness of breath. Patient is bedbound at baseline, and was noted to have increased work of breathing. SOB increased significantly this morning and patient was found to have altered mental status at SNF this morning. EMS found patient satting in the low 80s, improved to 93% on non-rebreather. Patient arrived to the ED and was placed on BiPAP with further improvement to O2 saturation. Patient was eventually weaned off BiPAP and placed on 2 L NC the saturation 98%. Mentation improved and patient no longer altered. Patient also states she had experienced brief moments of chest pain/pressure earlier in the week. Currently denies any chest pain/pressure, palpitations. No nausea, vomiting, diarrhea. Did have some diarrhea yesterday though none today. In the ED patient was tachypneic up to 24, hypotensive as low as 98/54. Patient was placed BiPAP and eventually weaned to nasal cannula where she is satting at 97%. Labs were significant for leukocytosis of 18.9 (chronically elevated), H&H 8.9/29.8, BMP 1175. UA positive for UTI. CXR showed cardiomegaly with mild pulmonary vascular congestion and bibasilar atelectasis. EKG demonstrated sinus rhythm with first-degree AV block, T-wave inversions in leads III and AVF. Pt was treated with Lasix 20 mg IV and 40 mg IV. Pt will be admitted to the hospital for treatment further evaluation of acute hypoxic respiratory failure in the setting of acute CHF exacerbation. Ms Toney is a 72yo M with CKD3, HFpEF, CLL, COPD not on home O2, DM2, LATONYA, hx heart block, morbid obesity, HTN, HLD, PVD, and hypothyroidism. She was sent in from a SNF with 4 days of worsening dyspnea. She was admitted to the [facility] for acute hypoxia due to CHF exacerbation. She was managed with IV bumetanide and diuresed a total of 5.4L negative while hospitalized. Cardiology was consulted. Metoprolol was discontinued which had been a prior recommendation by Cardiology due to a history of heart block with severe bradycardia requiring dopamine infusion in the past. She was weaned off oxygen. She completed 2 weeks of IV meropenem for ESBL UTI while in the hospital. IV vancomycin for MRSA bacteremia was continued with planned end date of 12/25/22. She was discharged back to [facility]. Time Spent with Patient Time attestation: Total time managing care of this patient today __35__ minutes. Discharge coordination time: Greater than 30 minutes Quality: Safe Use of Opioids Does Pt have an Active Cancer Diagnosis on the Problem List?: No Quality: Stroke Does the patient have a stroke diagnosis?: No Physical Exam Vital Signs: Vital Signs: Last Vital Signs Temp 98.4 F 12/15/22 11:21 Pulse 88 12/15/22 11:35 Resp 18 12/15/22 11:35 BP 131/60 12/15/22 11:21 Pulse Ox 100 12/15/22 11:21 O2 Del Method Nasal Cannula 12/15/22 11:21 O2 Flow Rate 1 12/15/22 11:21 BMI result Body Mass Index 52.4 Gen: in no acute distress HEENT: sclera anicteric, moist mucus membranes Neck: supple Lungs: diminished Heart: regular rate and rhythm, no murmurs Abd: soft, non-tender, non-distended, obese Ext: trace bilateral lower extremity edema Skin: warm/well-perfused Neuro: alert and oriented x3, no focal findings Psych: appropriate affect DS: Data Data Completed and Pending Completed studies during hospitalization [Text1]: Laboratory Results WBC 11.2 X10*3/uL (4.8-10.8) H 12/13/22 08:08 RBC 3.36 X10*6/uL (4.20-5.50) L 12/13/22 08:08 Hgb 8.5 g/dl (12.0-16.0) L 12/13/22 08:08 Hct 28.4 % (37.0-47.0) L 12/13/22 08:08 MCV 84.5 fL (80.0-98.0) 12/13/22 08:08 MCH 25.3 pg (27.0-33.0) L 12/13/22 08:08 MCHC 29.9 g/dl (31.0-35.0) L 12/13/22 08:08 RDW 17.2 % (11.0-16.0) H 12/13/22 08:08 Plt Count 119 X10*3/uL (160-400) L D 12/13/22 08:08 MPV 12.8 fL (9.4-12.3) H 12/13/22 08:08 Immature Gran % (Auto) 1.0 % (0.0-0.4) H 12/12/22 07:53 Neut % (Auto) 76.8 % (45-73) H 12/12/22 07:53 Lymph % (Auto) 8.7 % (20-40) L 12/12/22 07:53 [place] % (Auto) 8.9 % (2-11) 12/12/22 07:53 Eos % (Auto) 4.1 % (0-4) H 12/12/22 07:53 Baso % (Auto) 0.5 % (0-2) 12/12/22 07:53 Lymph # (Auto) 1.6 X10*3/uL (1.2-4.9) 12/12/22 07:53 [place] # (Auto) 1.7 X10*3/uL (0.1-1.2) H 12/12/22 07:53 Eos # (Auto) 0.8 X10*3/uL (0.0-0.4) H 12/12/22 07:53 Baso # (Auto) 0.1 X10*3/uL (0.0-0.2) 12/12/22 07:53 Abs Immat Gran (auto) 0.18 X10*3/uL (0.00-0.03) H 12/12/22 07:53 Absolute Neuts (auto) 14.5 x10*3/uL (2.0-8.3) H 12/12/22 07:53 Absolute Nucleated RBC 0.000 X10*3/uL (0.0-0.012) 12/13/22 08:08 Nucleated RBC % (auto) 0.0 /100WBC (0.0-0.2) 12/13/22 08:08 Smear Tech's Comments VERIFIED 12/12/22 07:53 O2 Saturation 91.0 % 12/12/22 10:27 ABG pH at Pt Temp 7.34 (7.35-7.45) L 12/12/22 10:27 ABG pCO2 at Pt Temp 40 mmHg (32-45) 12/12/22 10:27 ABG pO2 at Pt Temp 62 mmHg (83-108) L 12/12/22 10:27 ABG HCO3 22 mmol/L (22-26) 12/12/22 10:27 ABG Base Excess (Actual) -2.8 mmol/L 12/12/22 10:27 VBG pH 7.25 (7.32-7.43) L 12/12/22 08:04 VBG pCO2 51 mmHg 12/12/22 08:04 VBG pO2 64 mmHg 12/12/22 08:04 VBG HCO3 23 mmol/L (22-26) 12/12/22 08:04 VBG O2 Saturation 88.0 % 12/12/22 08:04 VBG Base Excess -4.2 mmol/L 12/12/22 08:04 Sodium 140 mmol/L (135-145) 09/13/23 08:23 Potassium 4.3 mmol/L (3.3-5.1) 12/15/22 08:23 Chloride 106 mmol/L (96-108) 12/15/22 08:23 Carbon Dioxide 27 mmol/L (22-29) 12/15/22 08:23 Anion Gap 11 (12-20) L 12/15/22 08:23 BUN 32 mg/dL (9-16) H 12/15/22 08:23 Creatinine 0.89 mg/dL (0.5-1.4) 12/15/22 08:23 Estim Creat Clear Calc 69.5 12/15/22 08:23 Estimated GFR > 60 12/15/22 08:23 POC Glucose 154 mg/dL (60-115) H 12/15/22 11:23 Random Glucose 124 mg/dL (60-115) H 12/15/22 08:23 Lactic Acid 0.7 mmol/L (0.5-2.0) 12/12/22 07:53 Calcium 8.6 mg/dL (8.4-10.2) 12/15/22 08:23 Magnesium 1.9 mg/dL (1.6-2.6) 12/15/22 08:23 Total Bilirubin 0.4 mg/dL (0.0-1.0) 12/12/22 07:53 AST 11 U/L (5-31) 12/12/22 07:53 ALT 8 U/L (0-31) 12/12/22 07:53 Alkaline Phosphatase 68 U/L (39-117) 12/12/22 07:53 Troponin I High Sens 14.2 ng/L (<3.5-17.0) 12/12/22 10:29 B-Natriuretic Peptide 525 pg/mL (<100) H 12/15/22 08:23 Total Protein 5.9 g/dL (6.5-8.0) L 12/12/22 07:53 Albumin 3.0 g/dL (3.5-5.0) L 12/12/22 07:53 Urine Color Yellow 12/12/22 10:19 Urine Appearance Turbid 12/12/22 10:19 Urine pH 5.5 (5.0-9.0) 12/12/22 10:19 Ur Specific [place] 1.015 (1.005-1.025) 12/12/22 10:19 Urine Protein 300 (3+) mg/dL (Neg-Trace) H 12/12/22 10:19 Urine Glucose (UA) Negative mg/dL (Negative) 12/12/22 10:19 Urine Ketones Trace mg/dL (Negative) 12/12/22 10:19 Urine Blood Large (3+) (Negative) H 12/12/22 10:19 Urine Nitrite Negative (Negative) 12/12/22 10:19 Ur Leukocyte Esterase Large (3+) (Negative) H 12/12/22 10:19 Urine RBC >20 /HPF (0-2) H 12/12/22 10:19 Urine WBC >50 /HPF (0-5) H 12/12/22 10:19 Ur Squamous Epith Cells >20 /HPF (0-2) 12/12/22 10:19 Urine Bacteria 1+ (None Seen) 12/12/22 10:19 Hyaline Casts 0-2 /LPF (0-2) 12/12/22 10:19 Urine Yeast Present 12/12/22 10:19 Random Vancomycin 15.9 mcg/mL (15-20) 12/15/22 08:23 C. difficile Tox B Gene NEGATIVE (Negative) 12/15/22 11:00 COVID-19 (DENY) Negative (Negative) 12/12/22 08:00 COVID-19 Clin Com See Note 12/12/22 08:00 Impressions Chest X-Ray 12/12/22 09:06 IMPRESSION: 1. Cardiomegaly with mild pulmonary vascular congestion. 2. Bibasilar atelectasis. 3. Right jugular central catheter tip in mid SVC. Discharge Plan Discharge Anticipated Discharge Date/Time: 12/15/22 13:00 Patient Disposition: Xfer SNF Discharge Diagnosis: CHF exacerbation Hypoxia MRSA bacteremia ESBL UTI Referrals: Tam Corea MD [Primary Care Provider] - 2 days Devin Callejas MD [Physician] - 2 Weeks Discharge Medications: New loperamide 2 mg Capsule 4 mg PO Q4H PRN (Reason: Diarrhea) Qty: 30 0RF bumetanide 1 mg Tablet 1 mg PO BID@0800,1700 Qty: 60 0RF Protocol: Hold for SBP< HOLD for SBP < : 90 Continued levothyroxine 175 mcg tablet 175 mcg PO DAILY@0600 citalopram 20 mg tablet 20 mg PO DAILY simvastatin 20 mg tablet 20 mg PO BEDTIME chlordiazepoxide HCl 10 mg capsule 10 mg PO BEDTIME insulin lispro protamin-lispro 100 unit/mL (75-25) insulin pen 0 unit subcut QIDACHS Protocol: Insulin Correction Scale Less than or equal to 110 ---- Give (units): 0 111 to 150 Give (units): 0 151 to 200 Give (units): 2 201 to 250 Give (units): 4 251 to 300 Give (units): 6 301 to 350 Give (units): 8 Greater than 350 Give (units): 10 Call MD if Blood Glucose > : 350 Januvia 100 mg tablet 100 mg PO DAILY Fleet Enema 19-7 gram/118 mL Enema 118 ml NM BEDTIME PRN (Reason: Constipation) guaifenesin 600 mg Tablet Extended Release 12hr 600 mg PO BID acetaminophen [Tylenol] 325 mg Tablet 650 mg PO Q4H PRN (Reason: Pain (Scale Score 4-6)) amlodipine 10 mg tablet 10 mg PO DAILY lorazepam 0.5 mg tablet 0.5 mg PO BID bisacodyl 10 mg Suppository 10 mg NM DAILY PRN (Reason: Constipation) hydroxyzine HCl 25 mg tablet 25 mg PO DAILY hydroxychloroquine 200 mg tablet 200 mg PO BID magnesium 200 mg Tablet 200 mg PO DAILY biotin 5 mg Tablet 5 mg PO DAILY riboflavin (vitamin B2) 400 mg Tablet 400 mg PO DAILY Calquence (acalabrutinib mal) 100 mg Tablet 100 mg PO Q12H Qty: 60 3RF Incruse Ellipta 62.5 mcg/actuation Blister With Device 1 inh INHALATION DAILY budesonide-formoterol [Symbicort] 160-4.5 mcg/actuation Hfa Aerosol Inhaler 2 puff INHALATION BID latanoprost 0.005 % drops 1 drp ophthalmic (eye) BEDTIME Rx Instructions: 1 drop into both eyes albuterol sulfate 0.63 mg/3 mL Solution For Nebulization 0.63 mg INHALATION Q2H PRN (Reason: Shortness Of Breath Or Wheezing) sennosides [senna] 8.6 mg Tablet 17.2 mg PO DAILY PRN (Reason: Constipation) eidvkaicps-pntvgmopvsnjh-sqwl 50-325-40 mg tablet 1 tab PO Q6H PRN (Reason: Headache) prednisolone acetate 1 % drops,suspension 1 drp ophthalmic-Right DAILY timolol maleate 0.5 % drops 1 drp ophthalmic-Right BID coenzyme Q10 [CoQ-10] 100 mg Capsule 150 mg PO DAILY melatonin 5 mg Tablet 5 mg PO BEDTIME Simbrinza 1-0.2 % drops,suspension 1 drp ophthalmic-Right BID insulin glargine [Lantus Solostar U-100 Insulin] 100 unit/mL (3 mL) insulin pen 16 unit subcut BID Hold Instructions: Resume on 05/10/22. Artificial Tears (cmc) 1 % Drops 1 drp OPHTHALMIC (EYE) BID vancomycin 500 mg recon soln 500 mg IV DAILY 28 Days Qty: 28 0RF Rx Instructions: END DATE: 12/30/22 00:00 levalbuterol HCl 1.25 mg/3 mL Solution For Nebulization 1.25 mg INHALATION QID potassium chloride 20 mEq Tablet,Er Particles/Crystals 40 meq PO DAILY Qty: 30 0RF diphenhydramine-zinc acetate 2-0.1 % Cream 1 appl TOPICAL BID Rx Instructions: apply to groin/coccyx prednisone 1 mg Tablet 6 mg PO DAILY nystatin 100,000 unit/gram Powder 1 appl TOPICAL BID acidophilus-pectin, citrus 100 million cell-10 mg Capsule 1 cap PO BID magnesium hydroxide [Milk of Magnesia] 400 mg/5 mL Suspension 30 ml PO DAILY PRN (Reason: Constipation) Discontinued polyethylene glycol 3350 [Miralax] 17 gram/dose Powder 17 g PO BID metoprolol tartrate 50 mg Tablet 50 mg PO BID meropenem 1 gram recon soln 1 g IV Q12H Qty: 28 0RF Rx Instructions: END DATE: 12/17/22 23:59 bumetanide 1 mg Tablet 1 mg PO DAILY Qty: 30 0RF Protocol: Hold for SBP< HOLD for SBP < : 90 sennosides-docusate sodium [Senna-S] 8.6-50 mg Tablet 1 tab-cap PO BEDTIME Discharge Orders: Discharge Order (Routine); Ordered 12/15/22 Ordered By: Jud Talbert Diet: Diabetic diet Activity on Discharge: As tolerated Stand Alone Forms: Patient Portal Discharge page Care Plan Goals: cardiac health Health Concerns: CHF exacerbation - increase bumetanide to 1 mg TWICE DAILY - Low-sodium diet: less than 2000 mg of sodium daily. Weigh yourself daily and call your doctor if your weight goes up by more than 3 lb/day or 5 lb/week. - follow up with [facility] Cardiology in 2 weeks Hypoxia - resolved MRSA bacteremia - continue vancomycin, end date 12/25/22 ESBL UTI - completed meropenem while in hospital Please follow up with your primary care doctor within 1 week. Return to the hospital if you experience recurrent or worsening symptoms. Plan of Treatment: as above Assessment: See Discharge Summary.
[2022-12-15] MEDS: Enoxaparin Sodium 40 MG/0.4 ML SYRINGE SUBCUT (13:23)
--- NOTE | 2022-12-15 14:03 | MHC.CM.PN ---
Patient has been medically cleared for dc to STR/SNF today. Patient will return to [facility] today at 6PM, via [facility]. Last IMM addressed on 12/13/2022.
[2022-12-15 16:51] LABS: Glucose, Whole Blood 267 mg/dL (60-115)
[2022-12-15] MEDS: Bumetanide 1 MG TABLET PO (17:00)
== END 2022-12-15 18:57 | disposition skilled nursing facility (03) | DRG 291 ==
LOC: HO.ED 11:42 → HO.EDOVER 14:10 → HO.IMC 14:29
PROVIDERS: Hospitalist; Physician Assistant; Admitting Provider Student in an Organized Health Care Education/Training Program; Emergency Provider Emergency Medicine; PCP Internal Medicine; Visit Provider Family Medicine
DX: I13.0 Hypertensive heart and chronic kidney disease with heart failure and stage 1 through stage 4 chronic kidney disease, or unspecified chronic kidney disease (principal); I50.33 Acute on chronic diastolic (congestive) heart failure; J96.01 Acute respiratory failure with hypoxia; N39.0 Urinary tract infection, site not specified; Z68.43 Body mass index [BMI] 50.0-59.9, adult; N18.30 Chronic kidney disease, stage 3 unspecified; E11.51 Type 2 diabetes mellitus with diabetic peripheral angiopathy without gangrene; E11.22 Type 2 diabetes mellitus with diabetic chronic kidney disease; B96.20 Unspecified Escherichia coli [E. coli] as the cause of diseases classified elsewhere; I44.1 Atrioventricular block, second degree; E78.5 Hyperlipidemia, unspecified; E03.9 Hypothyroidism, unspecified; B95.62 Methicillin resistant Staphylococcus aureus infection as the cause of diseases classified elsewhere; E66.01 Morbid (severe) obesity due to excess calories; I08.0 Rheumatic disorders of both mitral and aortic valves; Z20.822 Contact with and (suspected) exposure to COVID-19; Z87.891 Personal history of nicotine dependence; Z85.6 Personal history of leukemia; Z74.01 Bed confinement status; Z79.4 Long term (current) use of insulin; Z79.52 Long term (current) use of systemic steroids; Z79.890 Hormone replacement therapy; Z79.899 Other long term (current) drug therapy
CPT/HCPCS: 36415; 71045; 80048; 80053; 80202; 81001; 82565; 82803; 82947; 83605; 83735; 83880; 84484; 85025; 85027; 87040; 87086; 87088; 87186; 87493; 87635; 93005; 94640; 99285; C1758; J1650; J1940; J2185; J3370

== ENCOUNTER → 2022-12-12 13:59 | Outpatient (BNV) | payer MEDICARE, MEDICAID, SELFPAY | PROVIDERS: Admitting Provider Student in an Organized Health Care Education/Training Program; Emergency Provider Emergency Medicine; PCP Internal Medicine; Visit Provider Internal Medicine | DX: I50.33 Acute on chronic diastolic (congestive) heart failure (principal); J96.01 Acute respiratory failure with hypoxia; I44.1 Atrioventricular block, second degree | CPT/HCPCS: 99223; 99233 ==

== ENCOUNTER → 2022-12-12 13:59 | Outpatient (BNV) | payer MEDICARE, MEDICAID, SELFPAY | PROVIDERS: Admitting Provider Student in an Organized Health Care Education/Training Program; Emergency Provider Emergency Medicine; PCP Internal Medicine; Visit Provider Family Medicine | DX: I50.33 Acute on chronic diastolic (congestive) heart failure (principal); J96.01 Acute respiratory failure with hypoxia; E66.01 Morbid (severe) obesity due to excess calories; Z68.43 Body mass index [BMI] 50.0-59.9, adult; I44.1 Atrioventricular block, second degree | CPT/HCPCS: 99223; 99232; 99239 ==

== ENCOUNTER 2022-12-16 05:36 | Outpatient (REF) | payer SELFPAY ==
[2022-12-16 06:01] LABS: Basophils Absolute Auto 0.1 X10*3/uL (0.0-0.2); Basophils Percent Auto 0.6 % (0-2); Eosinophils Absolute Auto 0.7 X10*3/uL (0.0-0.4); Hematocrit 26.8 % (37.0-47.0); Imm Gran Abs Auto 0.05 X10*3/uL (0.00-0.03); Imm Gran Pct Auto 0.5 % (0.0-0.4); Lymphocytes Absolute Auto 1.6 X10*3/uL (1.2-4.9); Lymphocytes Percent Auto 16.3 % (20-40); Mean Corpuscular HGB Conc 29.9 g/dl (31.0-35.0); Mean Corpuscular Hemoglobin 25.5 pg (27.0-33.0); Mean Corpuscular Volume 85.4 fL (80.0-98.0); Monocytes Absolute Auto 1.2 X10*3/uL (0.1-1.2); Monocytes Percent Auto 12.2 % (2-11); NRBC Pct Auto 0.2 /100WBC (0.0-0.2); Neutrophils Absolute Auto 6.2 x10*3/uL (2.0-8.3); Neutrophils Percent Auto 63.4 % (45-73); Platelet Count 51 X10*3/uL (160-400); Red Blood Count 3.14 X10*6/uL (4.20-5.50); Red Cell Distribution Width 16.2 % (11.0-16.0); White Blood Count 9.8 X10*3/uL (4.8-10.8)
[2022-12-16 06:02] LABS: MANUAL DIFF FLAG SCAN
[2022-12-16 06:15] LABS: Anion Gap 13 (12-20); Blood Urea Nitrogen 33 mg/dL (9-16); Calcium 8.6 mg/dL (8.4-10.2); Carbon Dioxide 23 mmol/L (22-29); Chloride 107 mmol/L (96-108); Estimated Glomerular Filt Rate 54; Glucose Random 116 mg/dL (60-115); Potassium 4.9 mmol/L (3.3-5.1); Sodium 138 mmol/L (135-145)
[2022-12-16 06:16] LABS: SLIDE REVIEW VERIFIED
== END 2022-12-16 05:37 | disposition home or self-care (01) ==
LOC: HO.MMNH2L 05:36
PROVIDERS: Visit Provider Family Medicine
DX: J44.9 Chronic obstructive pulmonary disease, unspecified (principal); N39.0 Urinary tract infection, site not specified
CPT/HCPCS: 36415; 80048; 85025

== ENCOUNTER 2022-12-17 05:50 | Outpatient (REF) | payer SELFPAY ==
[2022-12-17 06:42] LABS: Vancomycin Trough 17.3 mcg/mL (10.0-20.0)
== END 2022-12-17 05:51 | disposition home or self-care (01) ==
LOC: HO.MMNH2L 05:50
PROVIDERS: Visit Provider Family Medicine
DX: Z86.14 Personal history of Methicillin resistant Staphylococcus aureus infection (principal); Z79.899 Other long term (current) drug therapy
CPT/HCPCS: 36415; 80202

== ENCOUNTER 2022-12-20 07:16 | Outpatient (REF) | payer SELFPAY ==
[2022-12-20 06:58] LABS: Basophils Absolute Auto 0.1 X10*3/uL (0.0-0.2); Basophils Percent Auto 0.7 % (0-2); Eosinophils Absolute Auto 1.2 X10*3/uL (0.0-0.4); Eosinophils Percent Auto 10.7 % (0-4); Hematocrit 27.9 % (37.0-47.0); Hemoglobin 8.6 g/dl (12.0-16.0); Imm Gran Abs Auto 0.14 X10*3/uL (0.00-0.03); Imm Gran Pct Auto 1.3 % (0.0-0.4); Lymphocytes Absolute Auto 1.3 X10*3/uL (1.2-4.9); Lymphocytes Percent Auto 11.9 % (20-40); MANUAL DIFF FLAG SCAN; Mean Corpuscular HGB Conc 30.8 g/dl (31.0-35.0); Mean Corpuscular Hemoglobin 25.5 pg (27.0-33.0); Mean Corpuscular Volume 82.8 fL (80.0-98.0); Monocytes Absolute Auto 1.9 X10*3/uL (0.1-1.2); Monocytes Percent Auto 16.5 % (2-11); Neutrophils Absolute Auto 6.6 x10*3/uL (2.0-8.3); Neutrophils Percent Auto 58.9 % (45-73); Red Blood Count 3.37 X10*6/uL (4.20-5.50); Red Cell Distribution Width 15.8 % (11.0-16.0); SCAN SMEAR FLAG 1; White Blood Count 11.2 X10*3/uL (4.8-10.8)
[2022-12-20 06:59] LABS: Platelet Count 82 X10*3/uL (160-400)
[2022-12-20 07:12] LABS: Alanine Aminotransferase 6 U/L (0-31); Albumin Level 2.7 g/dL (3.5-5.0); Alkaline Phosphatase 62 U/L (39-117); Anion Gap 14 (12-20); Aspartate Amino Transferase 8 U/L (5-31); Bilirubin Total 0.4 mg/dL (0.0-1.0); Blood Urea Nitrogen 36 mg/dL (9-16); Calcium 8.4 mg/dL (8.4-10.2); Carbon Dioxide 25 mmol/L (22-29); Chloride 103 mmol/L (96-108); Estimated Glomerular Filt Rate 35; Glucose Random 186 mg/dL (60-115); Potassium 4.8 mmol/L (3.3-5.1); Sodium 137 mmol/L (135-145); Total Protein 5.5 g/dL (6.5-8.0)
[2022-12-20 07:43] LABS: SLIDE REVIEW VERIFIED
== END 2022-12-20 07:17 | disposition home or self-care (01) ==
LOC: HO.MMNH2L 07:16
PROVIDERS: Visit Provider Family Medicine
DX: N18.9 Chronic kidney disease, unspecified (principal)
CPT/HCPCS: 36415; 80053; 85025

== ENCOUNTER 2022-12-22 05:54 | Outpatient (REF) | payer SELFPAY ==
[2022-12-22 06:48] LABS: Vancomycin Trough 19.1 mcg/mL (10.0-20.0)
== END 2022-12-22 05:55 | disposition home or self-care (01) ==
LOC: HO.MMNH2L 05:54
PROVIDERS: Visit Provider Family Medicine
DX: A49.02 Methicillin resistant Staphylococcus aureus infection, unspecified site (principal); Z79.899 Other long term (current) drug therapy
CPT/HCPCS: 36415; 80202

== ENCOUNTER 2022-12-24 05:34 | Outpatient (REF) | payer SELFPAY ==
[2022-12-24 05:54] LABS: Vancomycin Trough 20.8 mcg/mL (10.0-20.0)
== END 2022-12-24 05:35 | disposition home or self-care (01) ==
LOC: HO.MMNH2L 05:34
PROVIDERS: Visit Provider Family Medicine
DX: Z51.81 Encounter for therapeutic drug level monitoring (principal); Z16.12 Extended spectrum beta lactamase (ESBL) resistance; Z79.899 Other long term (current) drug therapy
CPT/HCPCS: 36415; 80202

== ENCOUNTER 2022-12-27 06:08 | Outpatient (REF) | payer SELFPAY ==
[2022-12-27 05:54] LABS: MANUAL DIFF FLAG NO
[2022-12-27 06:31] LABS: Anion Gap 18 (12-20); Blood Urea Nitrogen 27 mg/dL (9-16); Calcium 8.7 mg/dL (8.4-10.2); Carbon Dioxide 23 mmol/L (22-29); Chloride 103 mmol/L (96-108); Estimated Glomerular Filt Rate 40; Glucose Random 182 mg/dL (60-115); Sodium 140 mmol/L (135-145)
[2022-12-27 06:48] LABS: Basophils Absolute Auto 0.1 X10*3/uL (0.0-0.2); Basophils Percent Auto 0.6 % (0-2); Eosinophils Absolute Auto 0.9 X10*3/uL (0.0-0.4); Eosinophils Percent Auto 6.4 % (0-4); Hematocrit 25.6 % (37.0-47.0); Hemoglobin 7.6 g/dl (12.0-16.0); Imm Gran Abs Auto 0.59 X10*3/uL (0.00-0.03); Imm Gran Pct Auto 4.1 % (0.0-0.4); Lymphocytes Absolute Auto 1.2 X10*3/uL (1.2-4.9); Lymphocytes Percent Auto 8.4 % (20-40); Mean Corpuscular HGB Conc 29.7 g/dl (31.0-35.0); Mean Corpuscular Hemoglobin 24.9 pg (27.0-33.0); Mean Corpuscular Volume 83.9 fL (80.0-98.0); Mean Platelet Volume 12.4 fL (9.4-12.3); Monocytes Absolute Auto 1.4 X10*3/uL (0.1-1.2); Neutrophils Absolute Auto 10.1 x10*3/uL (2.0-8.3); Neutrophils Percent Auto 70.5 % (45-73); Platelet Count 211 X10*3/uL (160-400); Red Blood Count 3.05 X10*6/uL (4.20-5.50); Red Cell Distribution Width 15.7 % (11.0-16.0); White Blood Count 14.3 X10*3/uL (4.8-10.8)
== END 2022-12-27 06:09 | disposition home or self-care (01) ==
LOC: HO.MMNH2L 06:08
PROVIDERS: Visit Provider Family Medicine
DX: N18.9 Chronic kidney disease, unspecified (principal)
CPT/HCPCS: 36415; 80048; 85025

== ENCOUNTER 2022-12-28 05:47 | Outpatient (REF) | payer MEDICARE, MEDICAID, SELFPAY ==
[2022-12-28 05:50] LABS: MANUAL DIFF FLAG NO
[2022-12-28 06:29] LABS: Basophils Absolute Auto 0.2 X10*3/uL (0.0-0.2); Basophils Percent Auto 0.9 % (0-2); Eosinophils Absolute Auto 0.2 X10*3/uL (0.0-0.4); Eosinophils Percent Auto 1.3 % (0-4); Hematocrit 27.1 % (37.0-47.0); Hemoglobin 8.1 g/dl (12.0-16.0); Imm Gran Abs Auto 0.69 X10*3/uL (0.00-0.03); Imm Gran Pct Auto 4.2 % (0.0-0.4); Lymphocytes Absolute Auto 1.1 X10*3/uL (1.2-4.9); Lymphocytes Percent Auto 6.9 % (20-40); Mean Corpuscular HGB Conc 29.9 g/dl (31.0-35.0); Mean Corpuscular Hemoglobin 25.2 pg (27.0-33.0); Mean Corpuscular Volume 84.4 fL (80.0-98.0); Mean Platelet Volume 11.3 fL (9.4-12.3); Monocytes Absolute Auto 1.5 X10*3/uL (0.1-1.2); Monocytes Percent Auto 8.9 % (2-11); Neutrophils Absolute Auto 12.8 x10*3/uL (2.0-8.3); Neutrophils Percent Auto 77.8 % (45-73); Platelet Count 212 X10*3/uL (160-400); Red Blood Count 3.21 X10*6/uL (4.20-5.50); Red Cell Distribution Width 15.9 % (11.0-16.0); White Blood Count 16.5 X10*3/uL (4.8-10.8)
[2022-12-28 06:43] LABS: Anion Gap 18 (12-20); Blood Urea Nitrogen 30 mg/dL (9-16); Calcium 8.8 mg/dL (8.4-10.2); Carbon Dioxide 22 mmol/L (22-29); Chloride 102 mmol/L (96-108); Estimated Glomerular Filt Rate 33; Glucose Random 242 mg/dL (60-115); Potassium 5.1 mmol/L (3.3-5.1); Sodium 137 mmol/L (135-145)
== END 2022-12-28 05:48 | disposition home or self-care (01) ==
LOC: HO.MMNH2L 05:47
PROVIDERS: Visit Provider Family Medicine
DX: Z13.89 Encounter for screening for other disorder (principal)
CPT/HCPCS: 36415; 80048; 85025

== ENCOUNTER 2022-12-31 05:25 | Outpatient (REF) | payer MEDICARE, MEDICAID, SELFPAY ==
[2022-12-31 05:49] LABS: Basophils Absolute Auto 0.2 X10*3/uL (0.0-0.2); Basophils Percent Auto 0.6 % (0-2); Eosinophils Absolute Auto 0.6 X10*3/uL (0.0-0.4); Eosinophils Percent Auto 2.3 % (0-4); Hematocrit 26.2 % (37.0-47.0); Hemoglobin 7.9 g/dl (12.0-16.0); Imm Gran Abs Auto 0.44 X10*3/uL (0.00-0.03); Imm Gran Pct Auto 1.7 % (0.0-0.4); Lymphocytes Absolute Auto 1.7 X10*3/uL (1.2-4.9); Lymphocytes Percent Auto 6.7 % (20-40); MANUAL DIFF FLAG SCAN; Mean Corpuscular HGB Conc 30.2 g/dl (31.0-35.0); Mean Corpuscular Hemoglobin 25.4 pg (27.0-33.0); Mean Corpuscular Volume 84.2 fL (80.0-98.0); Mean Platelet Volume 11.9 fL (9.4-12.3); Monocytes Percent Auto 7.6 % (2-11); NRBC Pct Auto 0.1 /100WBC (0.0-0.2); Neutrophils Absolute Auto 20.9 x10*3/uL (2.0-8.3); Neutrophils Percent Auto 81.1 % (45-73); Platelet Count 197 X10*3/uL (160-400); Red Blood Count 3.11 X10*6/uL (4.20-5.50); SCAN SMEAR FLAG 1; White Blood Count 25.8 X10*3/uL (4.8-10.8)
[2022-12-31 05:51] LABS: Appearance Urine Turbid; Color Urine Yellow; Glucose Urine UA Negative (Negative); Leukocyte Esterase Urine Large (3+) (Negative); Nitrite Urine Negative (Negative); PH 5.5 (5.0-9.0); UMIC TRIGGER UACC YES; Urine Blood Large (3+) (Negative); Urine Ketones Negative (Negative); Urine Protein 100 (2+) mg/dL (Neg-Trace)
[2022-12-31 06:11] LABS: SLIDE REVIEW VERIFIED
[2022-12-31 06:14] LABS: Bacteria Urine 2+ (None Seen); Hyaline Casts Urine 0-2 /LPF (0-2); UACC Culture Trigger YES; WBC Urine >50 /HPF (0-5)
[2022-12-31 06:16] LABS: Alanine Aminotransferase 6 U/L (0-31); Albumin Level 2.6 g/dL (3.5-5.0); Alkaline Phosphatase 62 U/L (39-117); Anion Gap 18 (12-20); Aspartate Amino Transferase 13 U/L (5-31); Bilirubin Total 0.3 mg/dL (0.0-1.0); Blood Urea Nitrogen 41 mg/dL (9-16); Calcium 8.7 mg/dL (8.4-10.2); Carbon Dioxide 22 mmol/L (22-29); Chloride 106 mmol/L (96-108); Estimated Glomerular Filt Rate 34; Glucose Random 30 mg/dL (60-115); Potassium 5.1 mmol/L (3.3-5.1); Sodium 141 mmol/L (135-145); Total Protein 5.8 g/dL (6.5-8.0)
== END 2022-12-31 05:26 | disposition home or self-care (01) ==
LOC: HO.MMNH2L 05:25
PROVIDERS: Visit Provider Family Medicine
DX: Z13.89 Encounter for screening for other disorder (principal)
CPT/HCPCS: 36415; 80053; 81001; 85025; 87086; 87088

== ENCOUNTER 2022-12-31 11:35 | Inpatient (IN) | payer MEDICARE, MEDICAID, SELFPAY ==
--- NOTE | ~2022-12-31 | XR_ITS ---
EXAMINATION: XR CHEST CLINICAL INFORMATION: Cough COMPARISON: 12/12/2022. TECHNIQUE: Frontal view of the chest was obtained. FINDINGS: Tunneled right internal jugular chest port is stable in position with internal tip in the superior vena cava. Patient is rotated. Heart and mediastinum remain prominent but unchanged. Vascularity is upper limits of normal. No consolidations or effusions. Degenerative changes. XR/XR chest 1V IMPRESSION: Suspect cardiomegaly, mild vascular congestion not excluded.
[2022-12-31 11:48] VITALS: BP 104/62; BP 127/46; PULSE 87; PULSE 93; RESP 18; TEMP 37.1; O2SAT 100; O2SAT 98; BMI 44.3
--- NOTE | 2022-12-31 11:53 | ED.GENADULT ---
HPI - General Adult General Chief complaint: Recheck/Abnormal Lab/Rx Stated complaint: high white blood count Time Seen by Provider: 12/31/22 11:53 Source: patient and EMS Mode of arrival: EMS Limitations: no limitations History of Present Illness HPI narrative: Patient is a 72 year old assigned female at with a history of CHF, MRSA bacteremia, DM, CKD, and COPD on chronic oxygenation presenting to the emergency department today with an elevated WBC count. Patient states that she has a port in place because she was receiving antibiotics for a UTI and those finished yesterday. Patient states that what is primarily bothering her now is her very raw bottom for which they are only putting creams on. Patient denies any dizziness, lightheadedness, abdominal pain, nausea, vomiting, fever, chills, blurry vision, double vision, loss of vision, chest pain, difficulty breathing, shortness of breath, back pain, night sweats, pain with urination, increased urinary frequency, increased urinary urgency, blood in her urine or stool, syncope or a near syncopal episode, recent trauma or falls, bowel incontinence, bladder incontinence, bowel retention, bladder retention, or any other complaints at this time. Relieving factors: none Exacerbating factors: none Treatments prior to arrival: none Related Data Home Medications Medication Instructions Recorded Confirmed chlordiazepoxide HCl 10 mg capsule 10 mg PO BEDTIME 10/08/21 12/31/22 citalopram 20 mg tablet 20 mg PO DAILY 10/08/21 12/31/22 insulin lispro protamine-lispro 0 unit subcut QIDACHS 10/08/21 12/31/22 100 unit/mL (75-25) subcutaneous pen levothyroxine 175 mcg tablet 175 mcg PO DAILY@0600 10/08/21 12/31/22 simvastatin 20 mg tablet 20 mg PO BEDTIME 10/08/21 12/31/22 sitagliptin phosphate 100 mg 100 mg PO DAILY 10/08/21 12/31/22 tablet (Januvia) latanoprost 0.005 % eye drops 1 drp ophthalmic (eye) BEDTIME 11/20/21 12/31/22 albuterol sulfate 0.63 mg/3 mL 0.63 mg inhalation Q2H PRN 02/16/22 12/31/22 solution for nebulization Shortness Of Breath Or Wheezing brinzolamide 1 %-brimonidine 0.2 % 1 drp ophthalmic-Right BID 02/16/22 12/31/22 eye drops,suspension (Simbrinza) whlsmrzyvp-kofeqhzxvjoix-ruqhdvio 1 tab PO Q6H PRN Headache 02/16/22 12/31/22 50 mg-325 mg-40 mg tablet coenzyme Q10 100 mg capsule 150 mg PO DAILY 02/16/22 12/31/22 (CoQ-10) insulin glargine 100 unit/mL (3 16 unit subcut BID 02/16/22 12/31/22 mL) subcutaneous pen (Lantus Solostar U-100 Insulin) melatonin 5 mg tablet 5 mg PO BEDTIME 02/16/22 12/31/22 prednisolone acetate 1 % eye 1 drp ophthalmic-Right DAILY 02/16/22 12/31/22 drops,suspension sennosides 8.6 mg tablet (senna) 17.2 mg PO DAILY PRN Constipation 02/16/22 12/31/22 timolol maleate 0.5 % eye drops 1 drp ophthalmic-Right BID 02/16/22 12/31/22 carboxymethylcellulose sodium 1 % 1 drp ophthalmic (eye) BID 03/15/22 12/31/22 eye drops (Artificial Tears (carboxymethylcellulose)) budesonide-formoterol HFA 160 2 puff inhalation BID 04/27/22 12/31/22 mcg-4.5 mcg/actuation aerosol inhaler (Symbicort) umeclidinium 62.5 mcg/actuation 1 inh inhalation DAILY 04/27/22 12/31/22 blister powder for inhalation (Incruse Ellipta) acetaminophen 325 mg tablet 650 mg PO Q4H PRN Pain (Scale 06/08/22 12/31/22 (Tylenol) Score 4-6) amlodipine 10 mg tablet 10 mg PO DAILY high blood pressure 06/08/22 12/31/22 guaifenesin 600 mg tablet, 600 mg PO BID cough 06/08/22 12/31/22 extended release 12 hr sodium phosphates 19 gram-7 118 ml MI BEDTIME PRN Constipation 06/08/22 12/31/22 gram/118 mL enema (Fleet Enema) levalbuterol HCl 1.25 mg/3 mL 1.25 mg inhalation QID 07/30/22 12/31/22 solution for nebulization biotin 5 mg tablet 5 mg PO DAILY 08/11/22 12/31/22 bisacodyl 10 mg rectal suppository 10 mg MI DAILY PRN Constipation 08/11/22 12/31/22 hydroxychloroquine 200 mg tablet 200 mg PO BID 08/11/22 12/31/22 hydroxyzine HCl 25 mg tablet 25 mg PO DAILY 08/11/22 12/31/22 lorazepam 0.5 mg tablet 0.5 mg PO BID Anxiety 08/11/22 12/31/22 magnesium 200 mg tablet 200 mg PO DAILY 08/11/22 12/31/22 riboflavin (vitamin B2) 400 mg 400 mg PO DAILY 08/11/22 12/31/22 tablet diphenhydramine-zinc acetate 2 1 appl topical BID 10/27/22 12/31/22 %-0.1 % topical cream nystatin 100,000 unit/gram topical 1 appl topical BID 10/27/22 12/31/22 powder prednisone 1 mg tablet 6 mg PO DAILY 10/27/22 12/31/22 acidophilus 100 million 1 cap PO BID 12/12/22 12/31/22 cell-pectin, citrus 10 mg capsule bumetanide 1 mg tablet 2 mg PO BID@0800,1700 12/31/22 12/31/22 Previous Rx's Medication Instructions Recorded potassium chloride 20 mEq 40 meq (2 x 20 mEq) PO DAILY #30 08/06/22 tablet,extended release(part/cryst) tabs acalabrutinib maleate 100 mg 100 mg PO Q12H #60 tabs 10/11/22 tablet (Calquence (acalabrutinib maleate)) loperamide 2 mg capsule 4 mg (2 x 2 mg) PO Q4H PRN 12/15/22 Diarrhea #30 caps Allergies Allergy/AdvReac Type Severity Reaction Status Date / Time oxycodone [From Percocet] Allergy Intermediate Rash Verified 04/27/22 11:42 lisinopril Allergy Unknown Unknown Verified 04/27/22 11:42 metoprolol AdvReac Severe bradycardia Verified 12/13/22 10:47 Review of Systems Constitutional: Constitutional: Reports no additional constitutional complaints, Denies chills, Denies fever(s) and Denies night sweats Eyes: Eyes: Reports no additional eye complaints, Denies blurry vision, Denies change in vision, Denies diplopia, Denies eye discharge, Denies loss of vision and Denies eye pain ENT: Denies dizziness Cardiovascular: Cardiovascular: Reports no additional cardiovascular complaints, Denies chest pain, Denies lightheadedness, Denies Loss of Consciousness and Denies dyspnea Respiratory: Respiratory: Reports no additional respiratory complaints and Denies dyspnea Gastrointestinal: Gastrointestinal: Reports no additional gastrointestinal complaints, Denies abdominal pain, Denies melena, Denies hematochezia, Denies change in bowel habits and Denies change in stool character Genitourinary: Genitourinary: Denies hematuria, Denies urinary frequency, Denies dysuria, Denies urinary incontinence, Denies urinary hesitancy and Denies urinary urgency Musculoskeletal: Musculoskeletal: Reports no additional musculoskeletal complaints, Denies numbness and Denies tingling Integumentary/Breasts: Comments: buttock pain Neurologic: Denies dizziness, Denies loss of vision, Denies numbness and Denies tingling Psychiatric: Psychiatric: Reports no additional psychiatric complaints Endocrine: Endocrine: Reports no additional endocrine complaints Hematologic/Lymphatic: Hematologic/Lymphatic: Reports no additional hematologic/lymphatic complaints Allergic/Immunologic: Allergic/Immunologic: Reports no additional allergic/immunologic complaints [facility] Past Medical History Attestation statement: The following information was validated with the patient. Source: old records reviewed and nursing notes reviewed Medical History (Updated 01/01/23 @ 07:09 by MARIAH Stacy) Acute respiratory failure with hypoxia Heart block AV second degree Morbid obesity Acute UTI Acute kidney injury superimposed on CKD Bradycardia Pleural effusion Acute respiratory failure Pneumonia due to COVID-19 virus Chronic lymphocytic leukemia (CLL), B-cell Dyspnea Congestive heart failure COVID-19 Hypoxia Influenza A CLL (chronic lymphocytic leukemia) Suspected deep tissue injury Klebsiella pneumonia Infection with ESBL Klebsiella oxytoca Lymphadenopathy, mediastinal Pleural effusion Congestive heart failure Essential hypertension COVID Lower extremity edema Migraine HTN (hypertension) Pseudotumor cerebri PVD (peripheral vascular disease) Obesity CKD (chronic kidney disease) Diabetes mellitus with insulin therapy Hypothyroidism HLD (hyperlipidemia) Surgical History S/P appendectomy H/O cataract extraction H/O hysterectomy for benign disease Hx of cholecystectomy Family History Family History Mother Heart attack, Onset Age: 92 Father Heart attack, Onset Age: 66 Other Diabetes Social History Social History Household Members: Family Household Members Other:: patient came from a rehab facility, been there since dec Housing: House Do you presently have visiting nurse or other home services: No Alcohol intake: former Patient Tobacco Use Status: Former Tobacco user Smoked in Last 30 Days: No Second Hand Smoke Exposure: No Use of substances other than those prescribed or required for medical reasons: No Currently Displaying Signs/Symptoms of Drug Intoxication Withdrawal: No Have you been hit, kicked, punched, or otherwise hurt by someone within the past year? If so, by whom?: No Do you feel safe in your current relationship?: No Current Relationship Is there a partner from a previous relationship who is making you feel unsafe now?: No Are you made to feel afraid or neglected: No Rastafarian Healthcare Practices: mormon Advance Directives: Yes Advance Directives on File: Yes Advance Directives Date on File: 09/26/20 Do you have thoughts of harming others: None Do you have a plan to hurt others: No Plan Recently lost weight without trying: No Nutrition Risks: No Nutritional Risk Patient : No : No Poor oral hygiene: No service: No Current occupational status: disabled Physical Exam ED Vital Signs: Vital Signs - 24 hr 12/31/22 11:48 Temperature 98.7 F Pulse Rate 87 Respiratory Rate 18 Blood Pressure 127/46 L Pulse Oximetry 100 Oxygen Delivery Method Nasal Cannula BMI result Body Mass Index 44.3 Const General: cooperative, no acute distress, alert and awake Nutritional Appearance: well nourished Orientation/consciousness: patient oriented x3 Limitations: no limitations [facility] Head: Yes normal to inspection and Yes atraumatic Ears: hearing grossly normal bilaterally and external ears normal General nose exam: Normal external nose present, no nasal discharge noted and no epistaxis Face and sinus: Yes normal facial exam, No abrasion and No laceration Mouth: Normal oral and palatal mucosa present, no drooling and no muffled voice Eyes General: appearance normal, both eyes and all related structures Periorbital: periorbital findings normal Eyelids: Yes eyelids normal Conjunctivae: conjunctivae normal Pupils: Equal, round and reactive pupils present EOM: EOMs intact bilaterally Neck Neck: Yes normal visual inspection, Yes full ROM and Yes no lymphadenopathy Chest Other: port in place to the right chest Resp Other: on 4lpm via nasal canula Effort & Inspection: able to speak in complete sentences, Actively coughing Quality: wet and labored GI Inspection: Yes normal to inspection Skin Other: obvious yeast infection present under the left breast, between the left abdominal skin folds, and throughout the entire buttock with scattered, small, open wounds on the buttock Neuro General: patient oriented x3 and moves all extremities Cranial nerves: Yes Equal, round and reactive pupils present Cognition (Neuro): normal cognition Motor exam (neuro): 5/5 motor strength present throughout Sensory Exam: Normal double simultaneous stimulation for sensation Coordination: [id number] test normal Extrem General: Yes normal to inspection, Yes full ROM and Yes capillary refill normal Psych Appearance: grossly normal Mental Status: mental status grossly normal Affect: normal affect Attitude: cooperative Thought process: Normal thought process present Thought content: Normal thought content present Insight: Good insight present (Psych) Medications Administered Generic Name Dose Route Start Last Admin Trade Name Freq PRN Reason Stop Dose Admin Albuterol/Ipratropium 3 ml 12/31/22 16:00 12/31/22 19:17 Albuterol/Iprat 2.5/0.5mg 3 Ml Ampul.Neb INHALE 3 ml RQ4H WHILE AWAKE ALAN Administration Artificial Tears 1 drop 12/31/22 21:00 12/31/22 20:37 Artificial Tears 15 Ml Drops EYE-BOTH 1 drop BID ALAN Administration Atorvastatin Calcium 10 mg 12/31/22 21:00 12/31/22 19:53 Atorvastatin Calcium 10 Mg Tablet PO 10 mg BEDTIME ALAN Administration Bumetanide 2 mg 12/31/22 17:00 12/31/22 17:37 Bumetanide 1 Mg Tablet PO 2 mg BID@0800,1700 ALAN Administration Protocol Chlordiazepoxide HCl 10 mg 12/31/22 21:00 12/31/22 19:53 Chlordiazepoxide Hcl 5 Mg Capsule PO 10 mg BEDTIME ALAN Administration Dexamethasone Sodium Phosphate 6 mg 12/31/22 15:25 12/31/22 16:49 Dexamethasone Sod Phosphate 4 Mg/Ml Vial IVPUSH 01/10/23 15:24 6 mg DAILY ALAN Administration Enoxaparin Sodium 40 mg 12/31/22 15:00 12/31/22 15:07 Enoxaparin Sodium 40 Mg/0.4 Ml Syringe SUBCUT 40 mg Q24H ALAN Administration Guaifenesin 600 mg 12/31/22 21:00 12/31/22 19:54 Guaifenesin La 600 Mg Tab.Er.12h PO 600 mg BID ALAN Administration Hydroxychloroquine Sulfate 200 mg 12/31/22 21:00 12/31/22 19:53 Hydroxychloroquine Sulfate 200 Mg Tablet PO 200 mg BID ALAN Administration Piperacillin Sod/Tazobactam 50 mls @ 100 mls/hr 12/31/22 20:00 01/01/23 02:18 Sod 3.375 gm/ Sodium Chloride IV Infused Q6H ALAN Infusion Latanoprost 1 drop 12/31/22 21:00 12/31/22 22:04 Latanoprost 0.005 % Ophth Mona 2.5 Ml Drops EYE-BOTH Not Given BEDTIME ALAN Levalbuterol HCl 1.25 mg 12/31/22 17:00 12/31/22 19:43 Levalbuterol Hcl 1.25 Mg/3 Ml Vial.Neb INHALE Not Given RQID ALAN Levothyroxine Sodium 175 mcg 01/01/23 06:00 01/01/23 06:04 Levothyroxine Sodium 175 Mcg Tablet PO 175 mcg DAILY@0600 [facility] Administration Lorazepam 0.5 mg 12/31/22 21:00 12/31/22 19:53 Lorazepam 0.5 Mg Tablet PO 0.5 mg BID ALAN Administration Melatonin 6 mg 12/31/22 21:00 12/31/22 19:54 Melatonin 3 Mg Tablet PO 6 mg BEDTIME ALAN Administration Pt Own Med 100 mg 12/31/22 21:00 12/31/22 20:37 Medication ( PO 100 mg Acalabrutinib Q12H ALAN Administration Maleate [Calquence ( Acalabrutinib Mal)] 100 Mg Tab Nystatin 1 appl 12/31/22 21:00 12/31/22 22:04 Nystatin Powder 15 Gm Bottle TOPICAL Not Given BID [facility] Protocol Sodium Chloride 3 ml 12/31/22 16:00 12/31/22 19:54 0.9 % Sodium Chloride Flush 3 Ml Syringe IVFLUSH 3 ml QSHIFT ALAN Administration Timolol Maleate 1 drop 12/31/22 21:00 12/31/22 22:04 Timolol Maleate 0.5 % Oph Mona 5 Ml Drbtl EYE-RIGHT Not Given BID ALAN Discontinued Medications Generic Name Dose Route Start Last Admin Trade Name Ronny PRN Reason Stop Dose Admin Piperacillin Sod/Tazobactam 50 mls @ 100 mls/hr 12/31/22 13:26 12/31/22 15:06 Sod 3.375 gm/ Sodium Chloride IV 12/31/22 13:55 Infused ONCE ONE Infusion Vancomycin HCl 2,000 mg in 500 mls @ 250 mls/hr 12/31/22 13:30 12/31/22 20:14 Vancomycin/Ns IV 12/31/22 15:29 Infused ONCE ONE Infusion Remdesivir 200 mg/ Sodium 210 mls @ 105 mls/hr 12/31/22 16:00 12/31/22 20:14 Chloride IV 12/31/22 17:59 Infused ONCE ONE Infusion Sodium Zirconium Cyclosilicate 10 gm 12/31/22 14:46 12/31/22 15:07 Sodium Zirconium Cyclosilicate 10 Gm Powd.Pack PO 12/31/22 14:47 10 gm ONCE ONE Administration Medical Decision Making Medical Decision Making MDM Narrative: Patient is a 72 year old assigned female at with a history of DM, CHF, CKD, MRSA bacteremia, and CLL presenting to the emergency department today with an elevated WBC count. Patient's physical exam was as noted in physical exam portion of this chart. Patient's blood work showed a significantly elevated WBC count of 24.6. Patient appears to have a chronically elevated WBC count however, it has never exceeded 20 before. Patient's potassium was 5.7, CR of 1.49, BUN of 39, and glucose of 61. Patient was immediately given PO food / juice to address her hypoglycemia. Patient's urine showed >50 WBC, 1+ bacteria, and yeast. Patient's COVID-19 test was positive. Patient's EKG was unremarkable. Patient's chest x-ray showed cardiomegaly with mild vascular congestion. Patient's clinical presentation is not consistent with sepsis (@1400). I consulted with ID who recommended starting the patient on IV Vancomycin and Zosyn. I spoke with the hospitalist team who agreed to admission. I explained my physical exam findings as well as all test results to the patient. I answered all questions asked by the patient. Patient verbalized agreement and understanding with this treatment plan and admission. Differential Diagnosis Differential Diagnoses: The differential diagnosis associated with the presentation includes UTI COVID-19 Admission/Observation Consideration of admission/observation: Escalation of care including admission/observation considered Patient admitted. Consult Healthcare Provider Management of the patient was discussed with: Hospitalist (agreed to admission.) and Leather Stitcher (ID recommended IV Zosyn and Vancomycin as noted in the MDM rationale portion of this note.) Lab Data [facility] Lab Attestation statement: I reviewed the patient's lab results. My interpretation of these results are in the MDM rationale portion of this note. 12/31/22 12:34 12/31/22 12:34 Labs: Lab Results 12/31/22 12/31/22 12/31/22 Range/Units 12:05 12:34 12:35 WBC 24.6 H (4.8-10.8) X10*3/uL RBC 3.22 L (4.20-5.50) X10*6/uL Hgb 8.3 L (12.0-16.0) g/dl Hct 27.0 L (37.0-47.0) % MCV 83.9 (80.0-98.0) fL MCH 25.8 L (27.0-33.0) pg MCHC 30.7 L (31.0-35.0) g/dl RDW 17.2 H (11.0-16.0) % Plt Count 188 (160-400) X10*3/uL MPV 11.2 (9.4-12.3) fL Immature Gran % (Auto) 1.4 H (0.0-0.4) % Neut % (Auto) 83.5 H (45-73) % Lymph % (Auto) 5.4 L (20-40) % [place] % (Auto) 6.6 (2-11) % Eos % (Auto) 2.5 (0-4) % Baso % (Auto) 0.6 (0-2) % Lymph # (Auto) 1.3 (1.2-4.9) X10*3/uL [place] # (Auto) 1.6 H (0.1-1.2) X10*3/uL Eos # (Auto) 0.6 H (0.0-0.4) X10*3/uL Baso # (Auto) 0.1 (0.0-0.2) X10*3/uL Abs Immat Gran (auto) 0.34 H (0.00-0.03) X10*3/uL Absolute Neuts (auto) 20.5 H (2.0-8.3) x10*3/uL Absolute Nucleated RBC 0.000 (0.0-0.012) X10*3/uL Nucleated RBC % (auto) 0.0 (0.0-0.2) /100WBC PT (11.1-13.3) SEC INR (0.9-1.1) APTT (26.0-36.4) SEC Sodium 144 (135-145) mmol/L Potassium 5.7 H (3.3-5.1) mmol/L Chloride 105 (96-108) mmol/L Carbon Dioxide 27 (22-29) mmol/L Anion Gap 18 (12-20) BUN 39 H (9-16) mg/dL Creatinine 1.49 H (0.5-1.4) mg/dL Estim Creat Clear Calc 41.9 Estimated GFR 34 POC Glucose 61 (60-115) mg/dL Random Glucose 79 (60-115) mg/dL Lactic Acid 1.5 (0.5-2.0) mmol/L Calcium 8.7 (8.4-10.2) mg/dL Magnesium 2.2 (1.6-2.6) mg/dL Ferritin 168 (10-250) ng/mL Total Bilirubin 0.4 (0.0-1.0) mg/dL AST 12 (5-31) U/L ALT 6 (0-31) U/L Alkaline Phosphatase 64 (39-117) U/L Lactate Dehydrogenase 200 (122-220) U/L C-Reactive Protein 7.18 H (< or = 0.50) mg/dL Total Protein 5.9 L (6.5-8.0) g/dL Albumin 2.7 L (3.5-5.0) g/dL Influenza Type A (PCR) NEGATIVE (Negative) Influenza Type B (PCR) NEGATIVE (Negative) RSV RNA Qual (PCR) NEGATIVE (Negative) SARS-CoV-2 RNA (RT-PCR) POSITIVE A (Negative) 12/31/22 12/31/22 Range/Units 13:01 14:10 WBC (4.8-10.8) X10*3/uL RBC (4.20-5.50) X10*6/uL Hgb (12.0-16.0) g/dl Hct (37.0-47.0) % MCV (80.0-98.0) fL MCH (27.0-33.0) pg MCHC (31.0-35.0) g/dl RDW (11.0-16.0) % Plt Count (160-400) X10*3/uL MPV (9.4-12.3) fL Immature Gran % (Auto) (0.0-0.4) % Neut % (Auto) (45-73) % Lymph % (Auto) (20-40) % [place] % (Auto) (2-11) % Eos % (Auto) (0-4) % Baso % (Auto) (0-2) % Lymph # (Auto) (1.2-4.9) X10*3/uL [place] # (Auto) (0.1-1.2) X10*3/uL Eos # (Auto) (0.0-0.4) X10*3/uL Baso # (Auto) (0.0-0.2) X10*3/uL Abs Immat Gran (auto) (0.00-0.03) X10*3/uL Absolute Neuts (auto) (2.0-8.3) x10*3/uL Absolute Nucleated RBC (0.0-0.012) X10*3/uL Nucleated RBC % (auto) (0.0-0.2) /100WBC PT 12.0 (11.1-13.3) SEC INR 1.0 (0.9-1.1) APTT 27.2 D (26.0-36.4) SEC Sodium (135-145) mmol/L Potassium (3.3-5.1) mmol/L Chloride (96-108) mmol/L Carbon Dioxide (22-29) mmol/L Anion Gap (12-20) BUN (9-16) mg/dL Creatinine (0.5-1.4) mg/dL Estim Creat Clear Calc Estimated GFR POC Glucose 80 (60-115) mg/dL Random Glucose (60-115) mg/dL Lactic Acid (0.5-2.0) mmol/L Calcium (8.4-10.2) mg/dL Magnesium (1.6-2.6) mg/dL Ferritin (10-250) ng/mL Total Bilirubin (0.0-1.0) mg/dL AST (5-31) U/L ALT (0-31) U/L Alkaline Phosphatase (39-117) U/L Lactate Dehydrogenase (122-220) U/L C-Reactive Protein (< or = 0.50) mg/dL Total Protein (6.5-8.0) g/dL Albumin (3.5-5.0) g/dL Influenza Type A (PCR) (Negative) Influenza Type B (PCR) (Negative) RSV RNA Qual (PCR) (Negative) SARS-CoV-2 RNA (RT-PCR) (Negative) Independent Interpretation I performed an independent interpretation of an: EKG and Plain X-Ray Interpretation: My interpretation is in agreement with the radiologist's impression of this imaging study. EXAMINATION: XR CHEST CLINICAL INFORMATION: Cough COMPARISON: 12/12/2022. TECHNIQUE: Frontal view of the chest was obtained. FINDINGS: Tunneled right internal jugular chest port is stable in position with internal tip in the superior vena cava. Patient is rotated. Heart and mediastinum remain prominent but unchanged. Vascularity is upper limits of normal. No consolidations or effusions. Degenerative changes. XR/XR chest 1V IMPRESSION: Suspect cardiomegaly, mild vascular congestion not excluded. Dictated By: Padmini Hansen MD Signed By: Electronically signed by Padmini Hansen MD 12/31/22 1314 Vent. Rate: 085 BPM Atrial Rate: 085 BPM P-R Int: 200 ms QRS Dur: 104 ms QT Int: 406 ms P-R-T Axes: 036 112 -12 degrees QTc Int: 483 ms Normal sinus rhythm Left posterior fascicular block Cannot rule out Anterior infarct , age undetermined Abnormal ECG When compared with ECG of 12-DEC-2022 08:01, No significant change was found Referred By: Karly Li Electronically Signed By:AMANDA NOWAK DOFACP Dictated By: Amanda Nowak DO Signed By: Electronically signed by Amanda Nowak DO 12/31/22 1721 Radiology Impression Discussion of test interpretation with radiology: I have reviewed the radiologist's reading. Independent Historian Clinical information obtained from an independent historian. History obtained from or confirmed by: EMS (EMS provided additional history and confirmed the history provided by the patient.) External Record Review External record reviewed: Inpatient record and Prior outpatient labs Chronic Conditions Patient?s care impacted by: Diabetes Critical Care Time Critical Care Time Critical Care Time: Yes Total Critical Care Time: 60 Attestation: I spent 60 minutes of Critical Care Time with this patient. This does not include time spent on separately reported billable procedures. Discharge Plan Discharge Clinical Impression: Hyperkalemia, Acute UTI Patient Disposition: Admitted As Inpatient Interventions: Admission Worksheet (ED) Last Done: 12/31/22 16:56 Discharge Date/Time: 12/31/22 16:58
--- NOTE | 2022-12-31 11:55 | PC.NURSE ---
Patient alert and oriented, reports tongue and buttocks pain, skin check completed no open areas on buttocks . Fungal rash noted under bilat breasts and groin areas. Tongue with small area of thrush noted on right side
[2022-12-31 12:08] LABS: Glucose, Whole Blood 61 mg/dL (60-115)
[2022-12-31 12:42] LABS: Basophils Absolute Auto 0.1 X10*3/uL (0.0-0.2); Basophils Percent Auto 0.6 % (0-2); Eosinophils Absolute Auto 0.6 X10*3/uL (0.0-0.4); Eosinophils Percent Auto 2.5 % (0-4); Hemoglobin 8.3 g/dl (12.0-16.0); Imm Gran Abs Auto 0.34 X10*3/uL (0.00-0.03); Imm Gran Pct Auto 1.4 % (0.0-0.4); Lymphocytes Absolute Auto 1.3 X10*3/uL (1.2-4.9); Lymphocytes Percent Auto 5.4 % (20-40); MANUAL DIFF FLAG SCAN; Mean Corpuscular HGB Conc 30.7 g/dl (31.0-35.0); Mean Corpuscular Hemoglobin 25.8 pg (27.0-33.0); Mean Corpuscular Volume 83.9 fL (80.0-98.0); Mean Platelet Volume 11.2 fL (9.4-12.3); Monocytes Absolute Auto 1.6 X10*3/uL (0.1-1.2); Monocytes Percent Auto 6.6 % (2-11); Neutrophils Absolute Auto 20.5 x10*3/uL (2.0-8.3); Neutrophils Percent Auto 83.5 % (45-73); Platelet Count 188 X10*3/uL (160-400); Red Blood Count 3.22 X10*6/uL (4.20-5.50); Red Cell Distribution Width 17.2 % (11.0-16.0); SCAN SMEAR FLAG 1; White Blood Count 24.6 X10*3/uL (4.8-10.8)
[2022-12-31 12:53] LABS: Lactic Acid 1.5 mmol/L (0.5-2.0)
[2022-12-31 12:57] LABS: Alanine Aminotransferase 6 U/L (0-31); Albumin Level 2.7 g/dL (3.5-5.0); Alkaline Phosphatase 64 U/L (39-117); Anion Gap 18 (12-20); Aspartate Amino Transferase 12 U/L (5-31); Bilirubin Total 0.4 mg/dL (0.0-1.0); Blood Urea Nitrogen 39 mg/dL (9-16); Calcium 8.7 mg/dL (8.4-10.2); Carbon Dioxide 27 mmol/L (22-29); Chloride 105 mmol/L (96-108); Creatinine Clr Calc Pharmacy 41.9; Estimated Glomerular Filt Rate 34; Glucose Random 79 mg/dL (60-115); Magnesium 2.2 mg/dL (1.6-2.6); Potassium 5.7 mmol/L (3.3-5.1); Sodium 144 mmol/L (135-145); Total Protein 5.9 g/dL (6.5-8.0)
[2022-12-31 13:06] LABS: Glucose, Whole Blood 80 mg/dL (60-115)
[2022-12-31 13:20] LABS: Influenza A PCR NEGATIVE (Negative); Influenza B PCR NEGATIVE (Negative); Resp Syncy Virus RNA Qual PCR NEGATIVE (Negative); SARS COV2 PCR INHOUSE POSITIVE (Negative)
--- NOTE | 2022-12-31 13:57 | ECG_ITS ---
Test Reason : SOB Blood Pressure : / mmHG Vent. Rate : 085 BPM Atrial Rate : 085 BPM P-R Int : 200 ms QRS Dur : 104 ms QT Int : 406 ms P-R-T Axes : 036 112 -12 degrees QTc Int : 483 ms Normal sinus rhythm Left posterior fascicular block Cannot rule out Anterior infarct , age undetermined Abnormal ECG When compared with ECG of 12-DEC-2022 08:01, No significant change was found Referred By: Karly Li Electronically Signed By:AMANDA RAMIREZ
--- NOTE | 2022-12-31 14:07 | P.HPHOSP_ITS ---
History of Present Illness Date of Service: 12/31/22 <MARIAH Person - Last Filed: 12/31/22 15:49> Attending physician on admission: Jud Talbert <MARIAH Person - Last Filed: 12/31/22 15:49> Chief Complaint: Leukocytosis <MARIAH Person - Last Filed: 12/31/22 15:49> Pt is a 72-year-old female with a PMH significant for?CKD 3, HFpEF, CLL, COPD not on home O2, Insulin-dependent diabetes type 2, LATONYA, heart block, obesity class 3, HTN, HLD, PVD, and hypothyroidism who presents to the ED from [facility]. Patient was recently admitted to the hospital from 11/27-12/03/2022 and treated for UTI and bacteremia. Chavez catheter was placed by IR and patient was discharged to [facility] 2 weeks of IV meropenem to treat E coli (ESBL) and 28 days of IV vancomycin to treat MRSA bacteremia. Pt was readmitted on 12/12-12/14 and treated for acute CHF exacerbation. Pt completed meropenem during second admission and completed vancomycin course yesterday at [facility]. Pt presents today d/t leukocytosis and increasing SOB. Patient's main complaint is having a raw, painful backside the particularly hurts when she urinates. Patient has been experiencing polyuria though denies dysuria. Has also been experiencing increased shortness of breath with increased supplemental O2 oxygen demand at the facility. Patient was initially discharged on 2 L NC which was increased to 5 L at [facility]. Has had headache, sore and dry throat and mouth, and nonproductive cough for the past few days. Patient's niece is at bedside and notes patient was lethargic and ?totally out of it?, sleeping all day and night for the past couple days. Patient had been tested for COVID at facility at least twice within the past week, and had tested negative both times. Patient denies chest pain/pressure, palpitations. No fever, chills, nausea, vomiting, abdominal pain. In the ED patient was afebrile with slightly soft BP of 127/46, satting at 100% O2 on 5 L NC. Labs were significant for WBC 24.6 (chronically elevated), H&H 8.3/27.0, BUN 41, creatinine 1.49, random glucose 30, potassium 5.7. Patient tested positive for COVID. UA positive for UTI. CXR showed suspected cardiomegaly, with mild vascular congestion excluded. Pt was treated with vanc and Zosyn. Pt will be admitted to the hospital for treatment further evaluation of acute hypoxic respiratory failure in setting of COVID infection. <MARIAH Person - Last Filed: 12/31/22 15:49> Review of Systems 2 Review of Systems: Increased shortness of breath Nonproductive Painful, raw bottom polyuria, denies dysuria Denies chest pain/pressure, palpitations No fever, chills, nausea, vomiting, abdominal pain <MARIAH Person - Last Filed: 12/31/22 15:49> [facility] Medical History: Medical History (Updated 01/01/23 @ 07:09 by MARIAH Stacy) Acute respiratory failure with hypoxia Heart block AV second degree Morbid obesity Acute UTI Acute kidney injury superimposed on CKD Bradycardia Pleural effusion Acute respiratory failure Pneumonia due to COVID-19 virus Chronic lymphocytic leukemia (CLL), B-cell Dyspnea Congestive heart failure COVID-19 Hypoxia Influenza A CLL (chronic lymphocytic leukemia) Suspected deep tissue injury Klebsiella pneumonia Infection with ESBL Klebsiella oxytoca Lymphadenopathy, mediastinal Pleural effusion Congestive heart failure Essential hypertension COVID Lower extremity edema Migraine HTN (hypertension) Pseudotumor cerebri PVD (peripheral vascular disease) Obesity CKD (chronic kidney disease) Diabetes mellitus with insulin therapy Hypothyroidism HLD (hyperlipidemia) <MARIAH Person - Last Filed: 12/31/22 15:49> Family History: Family History Mother Heart attack, Onset Age: 92 Father Heart attack, Onset Age: 66 Other Diabetes <MARIAH Person - Last Filed: 12/31/22 15:49> Surgical History: Surgical History S/P appendectomy H/O cataract extraction H/O hysterectomy for benign disease Hx of cholecystectomy <MARIAH Person - Last Filed: 12/31/22 15:49> Social History: Social History Household Members: Family Household Members Other:: patient came from a rehab facility, been there since dec Housing: House Do you presently have visiting nurse or other home services: No Alcohol intake: former Patient Tobacco Use Status: Former Tobacco user Smoked in Last 30 Days: No Second Hand Smoke Exposure: No Use of substances other than those prescribed or required for medical reasons: No Currently Displaying Signs/Symptoms of Drug Intoxication Withdrawal: No Have you been hit, kicked, punched, or otherwise hurt by someone within the past year? If so, by whom?: No Do you feel safe in your current relationship?: No Current Relationship Is there a partner from a previous relationship who is making you feel unsafe now?: No Are you made to feel afraid or neglected: No [facility] Practices: sabianist Advance Directives: Yes Advance Directives on File: Yes Advance Directives Date on File: 09/26/20 Do you have thoughts of harming others: None Do you have a plan to hurt others: No Plan Recently lost weight without trying: No Nutrition Risks: No Nutritional Risk Patient : No : No Poor oral hygiene: No service: No Current occupational status: disabled <MARIAH Person - Last Filed: 12/31/22 15:49> Meds Allergies/Adverse reactions: Allergies Allergy/AdvReac Type Severity Reaction Status Date / Time oxycodone [From Percocet] Allergy Intermediate Rash Verified 04/27/22 11:42 lisinopril Allergy Unknown Unknown Verified 04/27/22 11:42 metoprolol AdvReac Severe bradycardia Verified 12/13/22 10:47 <MARIAH Person - Last Filed: 12/31/22 15:49> Active Medications: Current Medications Vancomycin HCl (Vancomycin/Ns) 2,000 mg in 500 mls @ 250 mls/hr IV ONCE ONE Stop: 12/31/22 15:29 Pharmacy Consult (Consult Rx Vancomycin Dosing) 1 each MISCELLANE DAILY PRN PRN Reason: Consult order <MARIAH Person - Last Filed: 12/31/22 15:49> Home medications: Home Medications Medication Instructions Recorded Confirmed Last Taken Type chlordiazepoxide HCl 10 mg capsule 10 mg PO BEDTIME 10/08/21 12/31/22 Unknown History citalopram 20 mg tablet 20 mg PO DAILY 10/08/21 12/31/22 Unknown History insulin lispro protamine-lispro 0 unit subcut QIDACHS 10/08/21 12/31/22 Unknown History 100 unit/mL (75-25) subcutaneous pen levothyroxine 175 mcg tablet 175 mcg PO DAILY@0600 10/08/21 12/31/22 Unknown History simvastatin 20 mg tablet 20 mg PO BEDTIME 10/08/21 12/31/22 Unknown History sitagliptin phosphate 100 mg 100 mg PO DAILY 10/08/21 12/31/22 Unknown History tablet (Januvia) latanoprost 0.005 % eye drops 1 drp ophthalmic (eye) BEDTIME 11/20/21 12/31/22 Unknown History albuterol sulfate 0.63 mg/3 mL 0.63 mg inhalation Q2H PRN 02/16/22 12/31/22 Unknown History solution for nebulization Shortness Of Breath Or Wheezing brinzolamide 1 %-brimonidine 0.2 % 1 drp ophthalmic-Right BID 02/16/22 12/31/22 Unknown History eye drops,suspension (Simbrinza) onbxvujfra-rxzeilzwdpzav-racayvlw 1 tab PO Q6H PRN Headache 02/16/22 12/31/22 Unknown History 50 mg-325 mg-40 mg tablet coenzyme Q10 100 mg capsule 150 mg PO DAILY 02/16/22 12/31/22 Unknown History (CoQ-10) insulin glargine 100 unit/mL (3 16 unit subcut BID 02/16/22 12/31/22 Unknown History mL) subcutaneous pen (Lantus Solostar U-100 Insulin) melatonin 5 mg tablet 5 mg PO BEDTIME 02/16/22 12/31/22 Unknown History prednisolone acetate 1 % eye 1 drp ophthalmic-Right DAILY 02/16/22 12/31/22 Unknown History drops,suspension sennosides 8.6 mg tablet (senna) 17.2 mg PO DAILY PRN Constipation 02/16/22 12/31/22 Unknown History timolol maleate 0.5 % eye drops 1 drp ophthalmic-Right BID 02/16/22 12/31/22 Unknown History carboxymethylcellulose sodium 1 % 1 drp ophthalmic (eye) BID 03/15/22 12/31/22 Unknown History eye drops (Artificial Tears (carboxymethylcellulose)) budesonide-formoterol HFA 160 2 puff inhalation BID 04/27/22 12/31/22 Unknown History mcg-4.5 mcg/actuation aerosol inhaler (Symbicort) umeclidinium 62.5 mcg/actuation 1 inh inhalation DAILY 04/27/22 12/31/22 Unknown History blister powder for inhalation (Incruse Ellipta) acetaminophen 325 mg tablet 650 mg PO Q4H PRN Pain (Scale 06/08/22 12/31/22 Unknown History (Tylenol) Score 4-6) amlodipine 10 mg tablet 10 mg PO DAILY high blood pressure 06/08/22 12/31/22 Unknown History guaifenesin 600 mg tablet, 600 mg PO BID cough 06/08/22 12/31/22 Unknown History extended release 12 hr sodium phosphates 19 gram-7 118 ml NC BEDTIME PRN Constipation 06/08/22 12/31/22 Unknown History gram/118 mL enema (Fleet Enema) levalbuterol HCl 1.25 mg/3 mL 1.25 mg inhalation QID 07/30/22 12/31/22 Unknown History solution for nebulization biotin 5 mg tablet 5 mg PO DAILY 08/11/22 12/31/22 Unknown History bisacodyl 10 mg rectal suppository 10 mg NC DAILY PRN Constipation 08/11/22 12/31/22 Unknown History hydroxychloroquine 200 mg tablet 200 mg PO BID 08/11/22 12/31/22 Unknown History hydroxyzine HCl 25 mg tablet 25 mg PO DAILY 08/11/22 12/31/22 Unknown History lorazepam 0.5 mg tablet 0.5 mg PO BID Anxiety 08/11/22 12/31/22 Unknown History magnesium 200 mg tablet 200 mg PO DAILY 08/11/22 12/31/22 Unknown History riboflavin (vitamin B2) 400 mg 400 mg PO DAILY 08/11/22 12/31/22 Unknown History tablet diphenhydramine-zinc acetate 2 1 appl topical BID 10/27/22 12/31/22 Unknown History %-0.1 % topical cream nystatin 100,000 unit/gram topical 1 appl topical BID 10/27/22 12/31/22 Unknown History powder prednisone 1 mg tablet 6 mg PO DAILY 10/27/22 12/31/22 Unknown History acidophilus 100 million 1 cap PO BID 12/12/22 12/31/22 Unknown History cell-pectin, citrus 10 mg capsule bumetanide 1 mg tablet 2 mg PO BID@0800,1700 12/31/22 12/31/22 Unknown History <MARIAH Person - Last Filed: 12/31/22 15:49> Physical Exam 2 Vital Signs and Narrative: Vital Signs: Last Vital Signs Temp 98.7 F 12/31/22 11:48 Pulse 87 12/31/22 11:48 Resp 18 12/31/22 11:48 BP 127/46 L 12/31/22 11:48 Pulse Ox 100 12/31/22 11:48 O2 Del Method Nasal Cannula 12/31/22 11:48 Oxygen Flow Rate 5 12/31/22 11:48 BMI result Body Mass Index 44.3 <MARIAH Person - Last Filed: 12/31/22 15:49> Constitutional: Alert, uncomfortable-looking, in no acute distress. Mental Status: Oriented to person, place and time. Eyes: Pupils are equal, round, and reactive to light. Ear, Nose, and Throat: Oropharynx clear, mucous membranes moist. Ears and nose without deformities. Trachea midline. Respiratory: Clear to auscultation bilaterally. No wheezing, rales, or rhonchi. Mild diaphoretic breathing noted. Cardiovascular: S1, S2 regular. No murmurs, rubs, or gallops. Gastrointestinal: Abdomen soft, non-tender, non-distended, obese. Normal bowel sounds. Neurologic: Cranial nerves II-XII are grossly intact bilaterally. No focal neurological deficits. Moves all extremities spontaneously. Skin: Diffuse areas of erythema and excoriated skin on backside and upper and inner thighs. See picture below. Musculoskeletal: No cyanosis or clubbing. Extremities: No edema. Chronic venous stasis dermatitis. Psychiatric: Normal mood and affect. <MARIAH Person - Last Filed: 12/31/22 15:49> Results Labs CBC and Chem 7: 01/01/23 07:02 01/01/23 07:02 <MARIAH Person - Last Filed: 12/31/22 15:49> Labs: Laboratory Results - last 24 hr 12/31/22 12/31/22 12/31/22 12:05 12:34 12:35 MCV 83.9 MCH 25.8 L MCHC 30.7 L RDW 17.2 H Plt Count 188 MPV 11.2 Immature Gran % (Auto) 1.4 H Neut % (Auto) 83.5 H Lymph % (Auto) 5.4 L Eagle % (Auto) 6.6 Eos % (Auto) 2.5 Baso % (Auto) 0.6 Lymph # (Auto) 1.3 Eagle # (Auto) 1.6 H Eos # (Auto) 0.6 H Baso # (Auto) 0.1 Abs Immat Gran (auto) 0.34 H Absolute Neuts (auto) 20.5 H Absolute Nucleated RBC 0.000 Nucleated RBC % (auto) 0.0 Anion Gap 18 Estim Creat Clear Calc 41.9 Estimated GFR 34 POC Glucose 61 Random Glucose 79 Lactic Acid 1.5 Calcium 8.7 Magnesium 2.2 Total Bilirubin 0.4 AST 12 ALT 6 Alkaline Phosphatase 64 Total Protein 5.9 L Albumin 2.7 L Influenza Type A (PCR) NEGATIVE Influenza Type B (PCR) NEGATIVE RSV RNA Qual (PCR) NEGATIVE SARS-CoV-2 RNA (RT-PCR) POSITIVE A 12/31/22 13:01 MCV MCH MCHC RDW Plt Count MPV Immature Gran % (Auto) Neut % (Auto) Lymph % (Auto) Eagle % (Auto) Eos % (Auto) Baso % (Auto) Lymph # (Auto) Eagle # (Auto) Eos # (Auto) Baso # (Auto) Abs Immat Gran (auto) Absolute Neuts (auto) Absolute Nucleated RBC Nucleated RBC % (auto) Anion Gap Estim Creat Clear Calc Estimated GFR POC Glucose 80 Random Glucose Lactic Acid Calcium Magnesium Total Bilirubin AST ALT Alkaline Phosphatase Total Protein Albumin Influenza Type A (PCR) Influenza Type B (PCR) RSV RNA Qual (PCR) SARS-CoV-2 RNA (RT-PCR) <MARIAH Person - Last Filed: 12/31/22 15:49> Imaging Radiologist's Impressions: Impressions Chest X-Ray 12/31/22 12:40 IMPRESSION: Suspect cardiomegaly, mild vascular congestion not excluded. <MARIAH Person - Last Filed: 12/31/22 15:49> Assessment and Plan (1) Acute respiratory failure with hypoxia: Status: Resolved <MARIAH Person Last Filed: 12/31/22 15:49> (2) Acute UTI: Status: Resolved <MARIAH Person - Last Filed: 12/31/22 15:49> Pt is a 72-year-old female with a PMH significant for?CKD 3, HFpEF, CLL, COPD not on home O2, Insulin-dependent diabetes type 2, LATONYA, heart block, obesity class 3, HTN, HLD, PVD, and hypothyroidism who presents to the ED from SNF. Pt will be admitted to the hospital for treatment further evaluation of acute hypoxic respiratory failure in setting of COVID infection. Acute hypoxic respiratory failure in the setting of COVID-19 Pt desatting as low as 78% on RA Pt tested positive for COVID here while testing negative at SNF at least two times in the past week Pt with increased SOB, cough past few days Will treat with Remdesivir, dexamethasone, duonebs Titrate supplemental O2 >92, wean as tolerated Patient does not meet sepsis criteria Monitor on telemetry Recurrent UTI Patient recently treated for ESBL UTI through [facility] with 2 wk of meropenem, completed 12/13/2022 Pt also treated for MRSA bacteremia at the same time with 4 wk of IV vanco, completed 12/30/2022 Current UA still positive for UTI; pt endorses polyuria, denies dysuria Will treat empirically with vanc and Zosyn, per ID ID consult Follow blood and urine cultures Hyperkalemia Pt's potassium 5.7 Will give one dose of Lokelma Hold potassium chloride supplements Follow BMP Stage II decubitus ulcers Pt with multiple areas of excoriated and erythematous skin Pt obese, bedbound at baseline, from SNF Pt positioning q2hr Barrier cream Airloss mattress Wound care nurse consult Chronic leukocytosis Likely secondary to chronic steroid use Patient currently on prednisone 6 mg daily COPD Not in acute exacerbation Continue home inhalers HTN BP a little soft, will hold antihypertensives for now Continue when warranted Insulin-dependent diabetes type 2 Hold [address] on sliding scale insulin, Lantus Diabetic diet Obesity class 3 Weight loss encouraged Low-calorie diet Hypothyroidism Continue levothyroxine Full Code Attending:?Dr. Talbert DVT Prophylaxis: Lovenox Pt will require a hospitalization of at least two nights for treatment of?acute hypoxic respiratory failure in the setting of COVID infections. She will be treated with supplemental oxygen, anti-virals, IV steroids and close monitoring. <MARIAH Person - Last Filed: 12/31/22 15:49> Chronic leukocytosis Likely secondary to chronic steroid use Patient currently on prednisone 6 mg daily COPD Not in acute exacerbation Continue home inhalers HTN BP a little soft, will hold antihypertensives for now Continue when warranted Insulin-dependent diabetes type 2 Hold home meds Will place on sliding scale insulin, Lantus Diabetic diet Obesity class 3 Weight loss encouraged Low-calorie diet Hypothyroidism Continue levothyroxine Full Code Attending:?Dr. Talbert DVT Prophylaxis: Lovenox Pt will require a hospitalization of at least two nights for treatment of?acute hypoxic respiratory failure in the setting of COVID infections. She will be treated with supplemental oxygen, anti-virals, IV steroids and close monitoring. Date of service 12/31/22 Addendum to history and physical by the advanced practice provider, MARIAH Milian I interviewed and examined the patient. I discussed their presentation and management with the CHUY. I reviewed the history and physical and agree with the documentation, with the following additions and corrections: 72yo M with CKD3, HFpEF, CLL, COPD not on home O2, DM2, LATONYA, hx heart block, morbid obesity, HTN, HLD, PVD, and hypothyroidism who was recently admitted here 12/12-12/15/22 for hypoxia due to CHF exacerbation and discharged back to [facility] for [facility]. Completed 2 wk of IV meropenem for ESBL UTI and 4 wk of IV vancomycin for MRSA bacteremia/UTI Sent in with dyspnea and found to have Covid-19 infection with hypoxia Plan admit to isolation, give remdesivir + dexamethasone, check inflammatory markers ID consulted by ED, give vanco + pip-sarah for empiric coverage of UTI as well as cellulitis of sacrum Mild hyperK, will give 1 dose SZC and recheck BMp in AM <Jud Talbert MD - Last Filed: 01/01/23 11:40> Time Spent With Patient Time: Total time managing care of this patient today ____ minutes. <MARIAH Person - Last Filed: 12/31/22 15:49> Quality Stroke Does the patient have a stroke diagnosis?: No <MARIAH Person - Last Filed: 12/31/22 15:49> VTE Prior VTE?: No <MARIAH Person - Last Filed: 12/31/22 15:49> VTE Risk Level:: Medical - moderate - high <MARIAH Person Last Filed: 12/31/22 15:49> VTE Device Contraindication: Treatment Not Indicated <MARIAH Person - Last Filed: 12/31/22 15:49> VTE Drug Contraindication: N/A - Med Ordered <MARIAH Person - Last Filed: 12/31/22 15:49>
[2022-12-31] MEDS: Piperacillin Sodium/Tazobactam 3.375 GM in 0.9 % Sodium Chloride 50 ML IV ×2 (14:12→19:53)
[2022-12-31 14:26] LABS: Partial Thromboplastin Time 27.2 SEC (26.0-36.4)
--- NOTE | 2022-12-31 15:02 | PHA.MEDREC ---
Pharmacy Consult ? Medication Reconciliation Pharmacy has completed the medication reconciliation. Patient came from SNF with med list. Sondra Hart, FreddieD
[2022-12-31 15:06] LABS: C Reactive Protein 7.18 mg/dL (< or = 0.50); Lactate Dehydrogenase 200 U/L (122-220)
[2022-12-31] MEDS: Sodium Zirconium Cyclosilicate 10 GM POWD.PACK PO (15:07)
[2022-12-31] MEDS: vancomycin/NS 2,000 MG/500 ML PLAST..BAG 250 MG IV (15:07)
[2022-12-31] MEDS: Enoxaparin Sodium 40 MG/0.4 ML SYRINGE SUBCUT (15:07)
[2022-12-31 15:21] LABS: Ferritin 168 ng/mL (10-250)
[2022-12-31 15:26] VITALS: BP 117/57; PULSE 84; RESP 18; TEMP 37; O2SAT 100
[2022-12-31 15:53] LABS: Appearance Urine Turbid; Color Urine Yellow; Glucose Urine UA Negative (Negative); Leukocyte Esterase Urine Large (3+) (Negative); Nitrite Urine Negative (Negative); PH 5.5 (5.0-9.0); UMIC TRIGGER UACC YES; Urine Blood Large (3+) (Negative); Urine Ketones Negative (Negative); Urine Protein 100 (2+) mg/dL (Neg-Trace)
[2022-12-31 16:00] VITALS: BP 120/59; PULSE 82; RESP 20; TEMP 36.6; O2SAT 99
[2022-12-31 16:03] LABS: Bacteria Urine 1+ (None Seen); Squamous Epithelial Cell Urine 0-2 /HPF (0-2); UACC Culture Trigger YES; WBC Urine >50 /HPF (0-5)
--- NOTE | 2022-12-31 16:39 | PC.NURSE ---
RN to RN report given to Meet Gold aware of plan.
--- NOTE | 2022-12-31 16:47 | PHA.PROG ---
Admission Date/Time: December 31, 2022 14:42 Indication: Weight in k.398 kg Adjusted body weight in Kg: [place] body weight in Kg: Obesity Dosing Indication % IBW: Serum Creatinine - Last 168 Hours 12/31/22 12:34 Creatinine 1.49 H Estimated CrCl and GFR - Last 168 Hours 12/31/22 12:34 Estim Creat Clear Calc 41.9 Estimated GFR 34 Vancomycin Loading Dose: 2000MG Current Vancomycin Dosing Regimen:750 MG Q 24 HOURS Vancomycin Monitoring using AUC goal of 400 - 600 range with trough as surrogate marker: Date and Time for next Vancomycin Level to be drawn:01/02/23 1200 Pharmacist Comments on Vancomycin Plan: Vancomycin dosing will take advantage of [employer] as a clinical decision support tool that uses Bayesian modeling to calculate individual patient's pharmacokinetic parameters and forecast the patient's drug concentration time course with the target goal AUC 24 range of 400 - 600 mg/L/hr.
[2022-12-31] MEDS: dexAMETHasone sod phosphate 4 MG/ML VIAL 6 MG IVPUSH (16:49)
[2022-12-31 17:18] LABS: Glucose, Whole Blood 84 mg/dL (60-115)
[2022-12-31] MEDS: Bumetanide 1 MG TABLET 2 MG PO (17:37)
[2022-12-31] MEDS: Remdesivir 200 MG in 0.9 % Sodium Chloride 210 ML 105 MG IV (17:39)
[2022-12-31] MEDS: Albuterol/Iprat 2.5/0.5MG 3 ML AMPUL.NEB INHALE (19:17)
[2022-12-31 19:29] VITALS: BP 119/57; RESP 20; TEMP 36.7; O2SAT 98
[2022-12-31 19:43] VITALS: RESP 16; O2SAT 97
[2022-12-31] MEDS: LORazepam 0.5 MG TABLET PO (19:53)
[2022-12-31] MEDS: Hydroxychloroquine Sulfate 200 MG TABLET PO (19:53)
[2022-12-31] MEDS: Atorvastatin Calcium 10 MG TABLET PO (19:53)
[2022-12-31] MEDS: chlordiazePOXIDE HCl 5 MG CAPSULE 10 MG PO (19:53)
[2022-12-31] MEDS: 0.9 % Sodium Chloride Flush 3 ML SYRINGE IVFLUSH (19:54)
[2022-12-31] MEDS: guaiFENesin LA 600 MG TAB.ER.12H PO (19:54)
[2022-12-31] MEDS: Melatonin 3 MG TABLET 6 MG PO (19:54)
[2022-12-31 19:55] LABS: Glucose, Whole Blood 156 mg/dL (60-115)
[2022-12-31] MEDS: Artificial Tears 15 ML DROPS 1 DROP EYE-BOTH (20:37)
[2023-01-01] VITALS (9 sets, daily range): BP systolic 104–132; BP diastolic 44–60; PULSE 80–98; RESP 14–18; TEMP 36.2–36.9; O2SAT 95–100
[2023-01-01] MEDS: Piperacillin Sodium/Tazobactam 3.375 GM in 0.9 % Sodium Chloride 50 ML IV ×4 (01:43→20:04)
[2023-01-01] MEDS: Levothyroxine Sodium 175 MCG TABLET PO (06:04)
[2023-01-01 07:11] LABS: Hematocrit 26.1 % (37.0-47.0); Hemoglobin 7.9 g/dl (12.0-16.0); Mean Corpuscular HGB Conc 30.3 g/dl (31.0-35.0); Mean Corpuscular Hemoglobin 25.2 pg (27.0-33.0); Mean Corpuscular Volume 83.4 fL (80.0-98.0); Mean Platelet Volume 11.7 fL (9.4-12.3); Platelet Count 137 X10*3/uL (160-400); Red Blood Count 3.13 X10*6/uL (4.20-5.50); Red Cell Distribution Width 17.4 % (11.0-16.0); White Blood Count 13.8 X10*3/uL (4.8-10.8)
[2023-01-01 07:38] LABS: Anion Gap 18 (12-20); Blood Urea Nitrogen 39 mg/dL (9-16); Carbon Dioxide 24 mmol/L (22-29); Chloride 105 mmol/L (96-108); Estimated Glomerular Filt Rate 36; Glucose Random 288 mg/dL (60-115); Sodium 142 mmol/L (135-145)
[2023-01-01] MEDS: Artificial Tears 15 ML DROPS 1 DROP EYE-BOTH ×2 (08:11→21:14)
[2023-01-01] MEDS: Magnesium Oxide 400 MG TABLET 200 MG PO (08:12)
[2023-01-01] MEDS: SITagliptin Phosphate 100 MG TABLET PO (08:12)
[2023-01-01] MEDS: LORazepam 0.5 MG TABLET PO ×2 (08:13→20:05)
[2023-01-01] MEDS: Hydroxychloroquine Sulfate 200 MG TABLET PO ×2 (08:13→20:05)
[2023-01-01] MEDS: hydrOXYzine HCL 25 MG TABLET PO (08:13)
[2023-01-01] MEDS: guaiFENesin LA 600 MG TAB.ER.12H PO ×2 (08:13→20:05)
[2023-01-01] MEDS: Escitalopram Oxalate 10 MG TABLET PO (08:13)
[2023-01-01] MEDS: Bumetanide 1 MG TABLET 2 MG PO ×2 (08:13→16:53)
[2023-01-01] MEDS: dexAMETHasone sod phosphate 4 MG/ML VIAL 6 MG IVPUSH (08:20)
[2023-01-01] MEDS: 0.9 % Sodium Chloride Flush 3 ML SYRINGE IVFLUSH ×3 (08:21→20:06)
[2023-01-01 08:31] LABS: Glucose, Whole Blood 259 mg/dL (60-115)
[2023-01-01] MEDS: levalbuterol HCL 1.25 MG/3 ML VIAL.NEB INHALE ×4 (08:54→19:36)
[2023-01-01] MEDS: Nystatin Powder 15 GM BOTTLE 1 APPL TOPICAL ×2 (09:44→21:16)
[2023-01-01] MEDS: prednisoLONE Acetate 1 % Oph Susp 5 ML DRPBTL 1 DROP EYE-RIGHT (09:45)
--- NOTE | 2023-01-01 11:41 | P.PNIM_ITS ---
Subjective Subjective Date of Service: 01/01/23 Interval History: on 3L O2 coughing but less short of breath no fever Review of Systems Review of Systems: Yes all other systems are reviewed and are negative Physical Exam 2 Vital Signs: Vital Signs: Last Vital Signs Temp 97.5 F 01/01/23 08:00 Pulse 80 01/01/23 08:00 Resp 18 01/01/23 08:00 BP 108/50 L 01/01/23 08:00 Pulse Ox 100 01/01/23 08:00 O2 Del Method Nasal Cannula 01/01/23 08:00 O2 Flow Rate 3 01/01/23 08:00 Oxygen Flow Rate 5 12/31/22 11:48 BMI result Body Mass Index 44.3 Gen: in no acute distress HEENT: sclera anicteric, moist mucus membranes Neck: supple Lungs: diminished Heart: regular rate and rhythm, no murmurs Abd: soft, non-tender, non-distended, obese Ext: no edema Skin: warm/well-perfused, R subclavian tunneled catheter Neuro: alert and oriented x3, no focal findings Psych: appropriate affect Objective Data Active Medications Acetaminophen (Acetaminophen 325 Mg Tablet) 650 mg PO Q6H PRN PRN Reason: Pain, Mild (Pain Scale 1-3) Acetaminophen/Butalbital/Caffeine (Butalb/Acetamin/Caff 50/325/40 Tablet) 1 tab PO Q6H PRN PRN Reason: Headache Albuterol Sulfate (Albuterol Sulfate (0.042%) 1.25 Mg/3 Ml Vial.Neb) 0.63 mg INHALE Q2H PRN PRN Reason: Shortness Of Breath Or Wheezing Albuterol/Ipratropium (Albuterol/Iprat 2.5/0.5mg 3 Ml Ampul.Neb) 3 ml INHALE RQ4H WHILE AWAKE [facility] Last Admin: 01/01/23 08:25 Dose: Not Given Documented By: REANNA Non-Admin Reason: See Note Artificial Tears (Artificial Tears 15 Ml Drops) 1 drop EYE-BOTH BID [facility] Last Admin: 01/01/23 08:11 Dose: 1 drop Documented By: MARY GRACE Atorvastatin Calcium (Atorvastatin Calcium 10 Mg Tablet) 10 mg PO BEDTIME [facility] Last Admin: 12/31/22 19:53 Dose: 10 mg Documented By: DARIEN Bisacodyl (Bisacodyl 10 Mg Supp.Rect) 10 mg UT DAILY PRN PRN Reason: Constipation Bumetanide (Bumetanide 1 Mg Tablet) 2 mg PO BID@0800,1700 [facility]; Protocol Last Admin: 01/01/23 08:13 Dose: 2 mg Documented By: MARY GRACE Chlordiazepoxide HCl (Chlordiazepoxide Hcl 5 Mg Capsule) 10 mg PO BEDTIME [facility] Last Admin: 12/31/22 19:53 Dose: 10 mg Documented By: DARIEN Dexamethasone Sodium Phosphate (Dexamethasone Sod Phosphate 4 Mg/Ml Vial) 6 mg IVPUSH DAILY [facility] Stop: 01/10/23 15:24 Last Admin: 01/01/23 08:20 Dose: 6 mg Documented By: MARY GRACE Docusate Sodium (Docusate Sodium 100 Mg Capsule) 100 mg PO DAILY PRN PRN Reason: Constipation Enoxaparin Sodium (Enoxaparin Sodium 40 Mg/0.4 Ml Syringe) 40 mg SUBCUT Q24H [facility] Last Admin: 12/31/22 15:07 Dose: 40 mg Documented By: JOSEF Escitalopram Oxalate (Escitalopram Oxalate 10 Mg Tablet) 10 mg PO DAILY [facility] Last Admin: 01/01/23 08:13 Dose: 10 mg Documented By: MARY GRACE Fluticasone/Vilanterol (Fluticasone/Vilanterol 200/25 Blst.W.Dev) 1 puff INHALE RDAILY [facility] Last Admin: 01/01/23 09:01 Dose: Not Given Documented By: REANNA Non-Admin Reason: See Note Guaifenesin (Guaifenesin La 600 Mg Tab.Er.12h) 600 mg PO BID [facility] Last Admin: 01/01/23 08:13 Dose: 600 mg Documented By: MARY GRACE Hydroxychloroquine Sulfate (Hydroxychloroquine Sulfate 200 Mg Tablet) 200 mg PO BID [facility] Last Admin: 01/01/23 08:13 Dose: 200 mg Documented By: MARY GRACE Hydroxyzine HCl (Hydroxyzine Hcl 25 Mg Tablet) 25 mg PO DAILY [facility] Last Admin: 01/01/23 08:13 Dose: 25 mg Documented By: MARY GRACE Remdesivir 100 mg/ Sodium (Chloride) 230 mls @ 115 mls/hr IV Q24H [facility] Stop: 01/04/23 17:59 Piperacillin Sod/Tazobactam (Sod 3.375 gm/ Sodium Chloride) 50 mls @ 100 mls/hr IV Q6H [facility] Last Infusion: 01/01/23 09:01 Dose: Infused Documented By: MARY GRACE Vancomycin HCl 750 mg/ Sodium (Chloride) 265 mls @ 265 mls/hr IV Q24H [facility] Latanoprost (Latanoprost 0.005 % Ophth Mona 2.5 Ml Drops) 1 drop EYE-BOTH BEDTIME [facility] Last Admin: 12/31/22 22:04 Dose: Not Given Documented By: DARIEN Non-Admin Reason: Med Not Available Levalbuterol HCl (Levalbuterol Hcl 1.25 Mg/3 Ml Vial.Neb) 1.25 mg INHALE RQID [facility] Last Admin: 01/01/23 08:54 Dose: 1.25 mg Documented By: REANNA Levothyroxine Sodium (Levothyroxine Sodium 175 Mcg Tablet) 175 mcg PO DAILY@0600 [facility] Last Admin: 01/01/23 06:04 Dose: 175 mcg Documented By: DARIEN Lorazepam (Lorazepam 0.5 Mg Tablet) 0.5 mg PO BID [facility] Last Admin: 01/01/23 08:13 Dose: 0.5 mg Documented By: MARY GRACE Magnesium Oxide (Magnesium Oxide 400 Mg Tablet) 200 mg PO DAILY [facility] Last Admin: 01/01/23 08:12 Dose: 200 mg Documented By: MARY GRACE Melatonin (Melatonin 3 Mg Tablet) 6 mg PO BEDTIME [facility] Last Admin: 12/31/22 19:54 Dose: 6 mg Documented By: DARIEN Pt Own Med Medication ( Acalabrutinib Maleate [Calquence ( Acalabrutinib Mal)] 100 Mg Tab 100 mg PO Q12H [facility] Last Admin: 01/01/23 08:12 Dose: 100 mg Documented By: MARY GRACE Nystatin (Nystatin Powder 15 Gm Bottle) 1 appl TOPICAL BID [facility]; Protocol Last Admin: 01/01/23 09:44 Dose: 1 appl Documented By: MARY GRACE Ondansetron HCl (Ondansetron Hcl 4 Mg/2 Ml Vial) 4 mg IVPUSH Q8H PRN PRN Reason: Nausea and Vomiting Pharmacy Consult (Consult Rx Vancomycin Dosing) 1 each MISCELLANE DAILY PRN PRN Reason: Consult order Prednisolone Acetate (Prednisolone Acetate 1 % Oph Susp 5 Ml Drpbtl) 1 drop EYE-RIGHT DAILY [facility] Last Admin: 01/01/23 09:45 Dose: 1 drop Documented By: MARY GRACE Senna (Sennosides 8.6 Mg Tablet) 17.2 mg PO DAILY PRN PRN Reason: Constipation Sitagliptin Phosphate (Sitagliptin Phosphate 100 Mg Tablet) 100 mg PO DAILY [facility] Last Admin: 01/01/23 08:12 Dose: 100 mg Documented By: MARY GRACE Sodium Biphosphate/Sodium Phosphate (Sodium Phosphate,[place]-Dibasic 133 Ml Enema) 118 ml UT BEDTIME PRN PRN Reason: Constipation Sodium Chloride (0.9 % Sodium Chloride Flush 3 Ml Syringe) 3 ml IVFLUSH QSHIFT [facility] Last Admin: 01/01/23 08:21 Dose: 3 ml Documented By: MARY GRACE Timolol Maleate (Timolol Maleate 0.5 % Oph Mona 5 Ml Drbtl) 1 drop EYE-RIGHT BID [facility] Last Admin: 01/01/23 10:29 Dose: Not Given Documented By: MARY GRACE Non-Admin Reason: med not available.called pharmacist Tiotropium [place] (Tiotropium [place] 2.5 Mcg Inhaler) 1 puff INHALE RDAILY [facility] Last Admin: 01/01/23 09:01 Dose: Not Given Documented By: REANNA Non-Admin Reason: See Note Zinc Oxide (Zinc Oxide (Triple Paste) 56.7 Gm Oint) 1 appl TOPICAL 8XD PRN; Protocol PRN Reason: Diaper Rash Labs 01/01/23 07:02 01/01/23 07:02 Labs: Laboratory Results - last 24 hr 12/31/22 12/31/22 12/31/22 12:05 12:34 12:35 MCV 83.9 MCH 25.8 L MCHC 30.7 L RDW 17.2 H Plt Count 188 MPV 11.2 Immature Gran % (Auto) 1.4 H Neut % (Auto) 83.5 H Lymph % (Auto) 5.4 L [place] % (Auto) 6.6 Eos % (Auto) 2.5 Baso % (Auto) 0.6 Lymph # (Auto) 1.3 [place] # (Auto) 1.6 H Eos # (Auto) 0.6 H Baso # (Auto) 0.1 Abs Immat Gran (auto) 0.34 H Absolute Neuts (auto) 20.5 H Absolute Nucleated RBC 0.000 Nucleated RBC % (auto) 0.0 PT INR APTT Anion Gap 18 Estim Creat Clear Calc 41.9 Estimated GFR 34 POC Glucose 61 Random Glucose 79 Lactic Acid 1.5 Calcium 8.7 Magnesium 2.2 Ferritin 168 Total Bilirubin 0.4 AST 12 ALT 6 Alkaline Phosphatase 64 Lactate Dehydrogenase 200 C-Reactive Protein 7.18 H Total Protein 5.9 L Albumin 2.7 L Urine Color Urine Appearance Urine pH Ur Specific [place] Urine Protein Urine Glucose (UA) Urine Ketones Urine Blood Urine Nitrite Ur Leukocyte Esterase Urine RBC Urine WBC Ur Squamous Epith Cells Urine Bacteria Hyaline Casts Urine Yeast Influenza Type A (PCR) NEGATIVE Influenza Type B (PCR) NEGATIVE RSV RNA Qual (PCR) NEGATIVE SARS-CoV-2 RNA (RT-PCR) POSITIVE A 12/31/22 12/31/22 12/31/22 13:01 14:10 15:45 MCV MCH MCHC RDW Plt Count MPV Immature Gran % (Auto) Neut % (Auto) Lymph % (Auto) [place] % (Auto) Eos % (Auto) Baso % (Auto) Lymph # (Auto) [place] # (Auto) Eos # (Auto) Baso # (Auto) Abs Immat Gran (auto) Absolute Neuts (auto) Absolute Nucleated RBC Nucleated RBC % (auto) PT 12.0 INR 1.0 APTT 27.2 D Anion Gap Estim Creat Clear Calc Estimated GFR POC Glucose 80 Random Glucose Lactic Acid Calcium Magnesium Ferritin Total Bilirubin AST ALT Alkaline Phosphatase Lactate Dehydrogenase C-Reactive Protein Total Protein Albumin Urine Color Yellow Urine Appearance Turbid Urine pH 5.5 Ur Specific [place] 1.010 Urine Protein 100 (2+) H Urine Glucose (UA) Negative Urine Ketones Negative Urine Blood Large (3+) H Urine Nitrite Negative Ur Leukocyte Esterase Large (3+) H Urine RBC 11-20 H Urine WBC >50 H Ur Squamous Epith Cells 0-2 Urine Bacteria 1+ Hyaline Casts 3-5 Urine Yeast Present Influenza Type A (PCR) Influenza Type B (PCR) RSV RNA Qual (PCR) SARS-CoV-2 RNA (RT-PCR) 12/31/22 12/31/22 01/01/23 17:14 19:52 07:02 MCV 83.4 MCH 25.2 L MCHC 30.3 L RDW 17.4 H Plt Count 137 L D MPV 11.7 Immature Gran % (Auto) Neut % (Auto) Lymph % (Auto) [place] % (Auto) Eos % (Auto) Baso % (Auto) Lymph # (Auto) [place] # (Auto) Eos # (Auto) Baso # (Auto) Abs Immat Gran (auto) Absolute Neuts (auto) Absolute Nucleated RBC 0.000 Nucleated RBC % (auto) 0.0 PT INR APTT Anion Gap 18 Estim Creat Clear Calc 44.0 Estimated GFR 36 POC Glucose 84 156 H Random Glucose 288 H Lactic Acid Calcium 8.0 L D Magnesium Ferritin Total Bilirubin AST ALT Alkaline Phosphatase Lactate Dehydrogenase C-Reactive Protein Total Protein Albumin Urine Color Urine Appearance Urine pH Ur Specific [place] Urine Protein Urine Glucose (UA) Urine Ketones Urine Blood Urine Nitrite Ur Leukocyte Esterase Urine RBC Urine WBC Ur Squamous Epith Cells Urine Bacteria Hyaline Casts Urine Yeast Influenza Type A (PCR) Influenza Type B (PCR) RSV RNA Qual (PCR) SARS-CoV-2 RNA (RT-PCR) 01/01/23 07:59 MCV MCH MCHC RDW Plt Count MPV Immature Gran % (Auto) Neut % (Auto) Lymph % (Auto) [place] % (Auto) Eos % (Auto) Baso % (Auto) Lymph # (Auto) [place] # (Auto) Eos # (Auto) Baso # (Auto) Abs Immat Gran (auto) Absolute Neuts (auto) Absolute Nucleated RBC Nucleated RBC % (auto) PT INR APTT Anion Gap Estim Creat Clear Calc Estimated GFR POC Glucose 259 H Random Glucose Lactic Acid Calcium Magnesium Ferritin Total Bilirubin AST ALT Alkaline Phosphatase Lactate Dehydrogenase C-Reactive Protein Total Protein Albumin Urine Color Urine Appearance Urine pH Ur Specific [place] Urine Protein Urine Glucose (UA) Urine Ketones Urine Blood Urine Nitrite Ur Leukocyte Esterase Urine RBC Urine WBC Ur Squamous Epith Cells Urine Bacteria Hyaline Casts Urine Yeast Influenza Type A (PCR) Influenza Type B (PCR) RSV RNA Qual (PCR) SARS-CoV-2 RNA (RT-PCR) Impressions Chest X-Ray 12/31/22 12:40 IMPRESSION: Suspect cardiomegaly, mild vascular congestion not excluded. Assessment and Plan (1) COVID: Status: Acute Assessment and Plan: 72yo M with CKD3, HFpEF, CLL, COPD not on home O2, DM2, LATONYA, hx heart block, morbid obesity, HTN, HLD, PVD, and hypothyroidism who was recently admitted here 12/12-12/15/22 for hypoxia due to CHF exacerbation and discharged back to [facility] for STR completed 2 wk of IV meropenem for ESBL UTI and 4 wk of IV vancomycin for MRSA bacteremia/UTI sent in with dyspnea and found to have Covid-19 infection with hypoxia acute hypoxic resp failure due to Covid-19 infection - wean O2 as tolerated, started remdesivir 12/31-01/04, started dexamethasone 12/31-01/09 [on prednisone 6 mg/d for CLL] UTI with recent ESBL UTI and MRSA UTI/bacteremia cellulitis of sacrum with stage II decubitus ulcers - vanc + pip-sarah 12/31-, ID + Wound Care consults, follow UCx BCx hyperK - resolved CLL - conitnue acalabrutinib, resume 6 mg/d prednisone after done with dexamethasone COPD, not in acute exac - continue home controller inhalers- Breo + Spiriva; prn nebs chronic HFpEF - continue bumetanide HTN - hold amlodipine for soft BP DM2 - basal-bolus insulin, sitagliptin mood disorder - continue escitalopram, lorazepam, hydroxyzine, chlordiazepoxide HLD - statin morbid obesity - diet/exercise counseling hypothyroidism - continue LT4 VTE ppx - LMWH dispo - STR bed hold In my clinical judgment, the patient requires continued inpatient hospitalization for the following reasons: hypoxia Time Spent With Patient Time: Total time managing care of this patient today __45__ minutes. Quality Stroke Does the patient have a stroke diagnosis?: No VTE Prior VTE?: No VTE Risk Level:: Medical - moderate - high VTE Device Contraindication: Treatment Not Indicated VTE Drug Contraindication: N/A - Med Ordered
[2023-01-01 12:03] LABS: Glucose, Whole Blood 287 mg/dL (60-115)
[2023-01-01] MEDS: Heparin Sodium,Porcine Flush 50 UNITS, 0.9 % Sodium Chloride Flush 5 ML IVFLUSH (12:21)
[2023-01-01] MEDS: vancomycin HCL 750 MG in 0.9 % Sodium Chloride 250 ML 265 MG IV (13:41)
--- NOTE | 2023-01-01 13:57 | MHC.CM.PN ---
IMM 01/01/23 Patient sent from [facility] where she was receiving STR. She is Covid+. She had been living with family prior to STR. She has a HCP and Molst on file. She is A+OX3. 3L O2 now and at baseline per pt report. DP return to [facility] via BLS.
[2023-01-01] MEDS: Enoxaparin Sodium 40 MG/0.4 ML SYRINGE SUBCUT (14:40)
[2023-01-01] MEDS: Remdesivir 100 MG in 0.9 % Sodium Chloride 230 ML 115 MG IV (14:42)
[2023-01-01 16:41] LABS: Glucose, Whole Blood 449 mg/dL (60-115)
[2023-01-01] MEDS: Insulin Lispro 100 UNIT/ML 3 ML VIAL SUBCUT ×2 (16:53→21:17)
[2023-01-01] MEDS: Atorvastatin Calcium 10 MG TABLET PO (20:05)
[2023-01-01] MEDS: chlordiazePOXIDE HCl 5 MG CAPSULE 10 MG PO (20:05)
[2023-01-01] MEDS: Melatonin 3 MG TABLET 6 MG PO (20:05)
[2023-01-01 20:48] LABS: Glucose, Whole Blood 449 mg/dL (60-115)
[2023-01-01] MEDS: Latanoprost 0.005 % Ophth Sol 2.5 ML DROPS 1 DROP EYE-BOTH (21:14)
[2023-01-01] MEDS: Insulin Glargine,Hum.rec.anlog 100 UNIT/ML 10 ML VIAL 16 UNIT SUBCUT (21:14)
[2023-01-01] MEDS: Insulin Lispro 100 UNIT/ML 3 ML VIAL 10 UNIT SUBCUT (21:14)
[2023-01-01 22:03] LABS: Glucose, Whole Blood 455 mg/dL (60-115)
[2023-01-02] VITALS (9 sets, daily range): BP systolic 106–139; BP diastolic 47–63; PULSE 79–88; RESP 18–20; TEMP 36.1–36.5; O2SAT 96–99
[2023-01-02 01:08] LABS: Glucose, Whole Blood 321 mg/dL (60-115)
[2023-01-02] MEDS: Insulin Lispro 100 UNIT/ML 3 ML VIAL 10 UNIT SUBCUT (01:39)
[2023-01-02] MEDS: Piperacillin Sodium/Tazobactam 3.375 GM in 0.9 % Sodium Chloride 50 ML IV ×4 (02:08→20:04)
[2023-01-02] MEDS: Levothyroxine Sodium 175 MCG TABLET PO (05:22)
[2023-01-02 06:20] LABS: Hematocrit 26.7 % (37.0-47.0); Hemoglobin 7.8 g/dl (12.0-16.0); Mean Corpuscular HGB Conc 29.2 g/dl (31.0-35.0); Mean Corpuscular Hemoglobin 24.7 pg (27.0-33.0); Mean Corpuscular Volume 84.5 fL (80.0-98.0); Mean Platelet Volume 12.2 fL (9.4-12.3); Platelet Count 149 X10*3/uL (160-400); Red Blood Count 3.16 X10*6/uL (4.20-5.50); Red Cell Distribution Width 17.1 % (11.0-16.0); White Blood Count 16.9 X10*3/uL (4.8-10.8)
[2023-01-02 06:34] LABS: Anion Gap 15 (12-20); Blood Urea Nitrogen 48 mg/dL (9-16); Calcium 8.2 mg/dL (8.4-10.2); Carbon Dioxide 25 mmol/L (22-29); Chloride 103 mmol/L (96-108); Creatinine Clr Calc Pharmacy 41.4; Estimated Glomerular Filt Rate 34; Glucose Random 156 mg/dL (60-115); Potassium 4.1 mmol/L (3.3-5.1); Sodium 139 mmol/L (135-145)
[2023-01-02 07:53] LABS: Glucose, Whole Blood 139 mg/dL (60-115)
[2023-01-02] MEDS: Fluticasone/Vilanterol 200/25 BLST.W.DEV 1 PUFF INHALE (08:19)
[2023-01-02] MEDS: levalbuterol HCL 1.25 MG/3 ML VIAL.NEB INHALE ×2 (08:19→15:49)
[2023-01-02] MEDS: Nystatin Powder 15 GM BOTTLE 1 APPL TOPICAL ×2 (08:46→20:19)
[2023-01-02] MEDS: Artificial Tears 15 ML DROPS 1 DROP EYE-BOTH ×2 (08:46→20:16)
[2023-01-02] MEDS: Heparin Sodium,Porcine Flush 50 UNITS, 0.9 % Sodium Chloride Flush 5 ML IVFLUSH (08:47)
[2023-01-02] MEDS: Insulin Glargine,Hum.rec.anlog 100 UNIT/ML 10 ML VIAL 16 UNIT SUBCUT ×2 (08:47→20:18)
[2023-01-02] MEDS: SITagliptin Phosphate 100 MG TABLET PO (08:48)
[2023-01-02] MEDS: Hydroxychloroquine Sulfate 200 MG TABLET PO ×2 (08:48→20:17)
[2023-01-02] MEDS: hydrOXYzine HCL 25 MG TABLET PO (08:48)
[2023-01-02] MEDS: guaiFENesin LA 600 MG TAB.ER.12H PO ×2 (08:48→20:16)
[2023-01-02] MEDS: LORazepam 0.5 MG TABLET PO ×2 (08:48→20:19)
[2023-01-02] MEDS: Bumetanide 1 MG TABLET 2 MG PO ×2 (08:48→16:18)
[2023-01-02] MEDS: Escitalopram Oxalate 10 MG TABLET PO (08:48)
[2023-01-02] MEDS: Magnesium Oxide 400 MG TABLET 200 MG PO (08:49)
[2023-01-02] MEDS: dexAMETHasone sod phosphate 4 MG/ML VIAL 6 MG IVPUSH (08:50)
[2023-01-02] MEDS: prednisoLONE Acetate 1 % Oph Susp 5 ML DRPBTL 1 DROP EYE-RIGHT (08:50)
[2023-01-02] MEDS: 0.9 % Sodium Chloride Flush 3 ML SYRINGE IVFLUSH ×2 (08:51→16:19)
[2023-01-02 11:46] LABS: Glucose, Whole Blood 248 mg/dL (60-115)
--- NOTE | 2023-01-02 11:54 | HO.PM.IMPN ---
Subjective Subjective Date of Service: 01/02/23 Interval History: coughing on 2L O2 c/o mouth + tongue pain + sore throat Review of Systems Review of Systems: Yes all other systems are reviewed and are negative Physical Exam Vital Signs: Vital Signs: Last Vital Signs Temp 96.9 F 01/02/23 07:47 Pulse 83 01/02/23 08:22 Resp 20 01/02/23 08:22 BP 115/55 L 01/02/23 07:47 Pulse Ox 98 01/02/23 07:47 O2 Del Method Nasal Cannula 01/02/23 07:47 O2 Flow Rate 2 01/02/23 07:47 Oxygen Flow Rate 5 12/31/22 11:48 BMI result Body Mass Index 44.3 Gen: in no acute distress HEENT: sclera anicteric, moist mucus membranes, thrush on tongue and cheeks Neck: supple Lungs: diminished Heart: regular rate and rhythm, no murmurs Abd: soft, non-tender, non-distended, obese Ext: no edema Skin: warm/well-perfused, R subclavian tunneled catheter Neuro: alert and oriented x3, no focal findings Psych: appropriate affect Objective Data Active Medications Acetaminophen (Acetaminophen 325 Mg Tablet) 650 mg PO Q6H PRN PRN Reason: Pain, Mild (Pain Scale 1-3) Acetaminophen/Butalbital/Caffeine (Butalb/Acetamin/Caff 50/325/40 Tablet) 1 tab PO Q6H PRN PRN Reason: Headache Albuterol Sulfate (Albuterol Sulfate (0.042%) 1.25 Mg/3 Ml Vial.Neb) 0.63 mg INHALE Q2H PRN PRN Reason: Shortness Of Breath Or Wheezing Artificial Tears (Artificial Tears 15 Ml Drops) 1 drop EYE-BOTH BID [facility] Last Admin: 01/02/23 08:46 Dose: 1 drop Documented By: MARY GRACE Atorvastatin Calcium (Atorvastatin Calcium 10 Mg Tablet) 10 mg PO BEDTIME [facility] Last Admin: 01/01/23 20:05 Dose: 10 mg Documented By: KRISSY Bisacodyl (Bisacodyl 10 Mg Supp.Rect) 10 mg FL DAILY PRN PRN Reason: Constipation Bumetanide (Bumetanide 1 Mg Tablet) 2 mg PO BID@0800,1700 [facility]; Protocol Last Admin: 01/02/23 08:48 Dose: 2 mg Documented By: MARY GRACE Chlordiazepoxide HCl (Chlordiazepoxide Hcl 5 Mg Capsule) 10 mg PO BEDTIME [facility] Last Admin: 01/01/23 20:05 Dose: 10 mg Documented By: KRISSY Heparin Sodium (Porcine) 50 (units/ Sodium Chloride 5 ml) 0 units IVFLUSH DAILY [facility] Last Admin: 01/02/23 08:47 Dose: 50 unit Documented By: MARY GRACE Dexamethasone Sodium Phosphate (Dexamethasone Sod Phosphate 4 Mg/Ml Vial) 6 mg IVPUSH DAILY [facility] Stop: 01/10/23 15:24 Last Admin: 01/02/23 08:50 Dose: 6 mg Documented By: MARY GRACE Dextrose (Dextrose 50 % 25 Gm/50 Ml Syringe) 25 gm IVPUSH Q15M PRN; Protocol PRN Reason: per Hypoglycemia Standing Ord. Docusate Sodium (Docusate Sodium 100 Mg Capsule) 100 mg PO DAILY PRN PRN Reason: Constipation Enoxaparin Sodium (Enoxaparin Sodium 40 Mg/0.4 Ml Syringe) 40 mg SUBCUT Q24H [facility] Last Admin: 01/01/23 14:40 Dose: 40 mg Documented By: MARY GRACE Escitalopram Oxalate (Escitalopram Oxalate 10 Mg Tablet) 10 mg PO DAILY [facility] Last Admin: 01/02/23 08:48 Dose: 10 mg Documented By: MARY GRACE Fluticasone/Vilanterol (Fluticasone/Vilanterol 200/25 Blst.W.Dev) 1 puff INHALE RDAILY [facility] Last Admin: 01/02/23 08:19 Dose: 1 puff Documented By: REANNA Glucose (Glucose Gel 15 Gm Gel..Gram.) 15 gm PO Q15M PRN; Protocol PRN Reason: per Hypoglycemia Standing Ord. Guaifenesin (Guaifenesin La 600 Mg Tab.Er.12h) 600 mg PO BID [facility] Last Admin: 01/02/23 08:48 Dose: 600 mg Documented By: MARY GRACE Hydroxychloroquine Sulfate (Hydroxychloroquine Sulfate 200 Mg Tablet) 200 mg PO BID [facility] Last Admin: 01/02/23 08:48 Dose: 200 mg Documented By: MARY GRACE Hydroxyzine HCl (Hydroxyzine Hcl 25 Mg Tablet) 25 mg PO DAILY [facility] Last Admin: 01/02/23 08:48 Dose: 25 mg Documented By: MARY GRACE Remdesivir 100 mg/ Sodium (Chloride) 230 mls @ 115 mls/hr IV Q24H [facility] Stop: 01/04/23 17:59 Last Infusion: 01/01/23 16:42 Dose: Infused Documented By: MARY GRACE Piperacillin Sod/Tazobactam (Sod 3.375 gm/ Sodium Chloride) 50 mls @ 100 mls/hr IV Q6H [facility] Last Admin: 01/02/23 09:00 Dose: 100 mls/hr Documented By: MARY GRACE Vancomycin HCl 750 mg/ Sodium (Chloride) 265 mls @ 265 mls/hr IV Q24H [facility] Last Infusion: 01/01/23 14:41 Dose: Infused Documented By: MARY GRACE Insulin Glargine (Insulin Glargine,Hum.Rec.Anlog 100 Unit/Ml 10 Ml Vial) 16 unit SUBCUT BID [facility] Last Admin: 01/02/23 08:47 Dose: 16 unit Documented By: MARY GRACE Insulin Human Lispro (Insulin Lispro 100 Unit/Ml 3 Ml Vial) 0 unit SUBCUT QIDACHS [facility]; Protocol Last Admin: 01/02/23 07:58 Dose: Not Given Documented By: MARY GRACE Non-Admin Reason: No Insulin Coverage Latanoprost (Latanoprost 0.005 % Ophth Mona 2.5 Ml Drops) 1 drop EYE-BOTH BEDTIME [facility] Last Admin: 01/01/23 21:14 Dose: 1 drop Documented By: KRISSY Levalbuterol HCl (Levalbuterol Hcl 1.25 Mg/3 Ml Vial.Neb) 1.25 mg INHALE RQID [facility] Last Admin: 01/02/23 11:45 Dose: Not Given Documented By: REANNA Non-Admin Reason: Patient Refused Levothyroxine Sodium (Levothyroxine Sodium 175 Mcg Tablet) 175 mcg PO DAILY@0600 [facility] Last Admin: 01/02/23 05:22 Dose: 175 mcg Documented By: KRISSY Lorazepam (Lorazepam 0.5 Mg Tablet) 0.5 mg PO BID [facility] Last Admin: 01/02/23 08:48 Dose: 0.5 mg Documented By: MARY GRACE Magnesium Oxide (Magnesium Oxide 400 Mg Tablet) 200 mg PO DAILY [facility] Last Admin: 01/02/23 08:49 Dose: 200 mg Documented By: MARY GRACE Melatonin (Melatonin 3 Mg Tablet) 6 mg PO BEDTIME [facility] Last Admin: 01/01/23 20:05 Dose: 6 mg Documented By: KRISSY Pt Own Med Medication ( Acalabrutinib Maleate [Calquence ( Acalabrutinib Mal)] 100 Mg Tab 100 mg PO Q12H [facility] Last Admin: 01/02/23 08:50 Dose: 100 mg Documented By: MARY GRACE Nystatin (Nystatin Powder 15 Gm Bottle) 1 appl TOPICAL BID [facility]; Protocol Last Admin: 01/02/23 08:46 Dose: 1 appl Documented By: MARY GRACE Ondansetron HCl (Ondansetron Hcl 4 Mg/2 Ml Vial) 4 mg IVPUSH Q8H PRN PRN Reason: Nausea and Vomiting Pharmacy Consult (Consult Rx Vancomycin Dosing) 1 each MISCELLANE DAILY PRN PRN Reason: Consult order Prednisolone Acetate (Prednisolone Acetate 1 % Oph Susp 5 Ml Drpbtl) 1 drop EYE-RIGHT DAILY [facility] Last Admin: 01/02/23 08:50 Dose: 1 drop Documented By: MARY GRACE Senna (Sennosides 8.6 Mg Tablet) 17.2 mg PO DAILY PRN PRN Reason: Constipation Sitagliptin Phosphate (Sitagliptin Phosphate 100 Mg Tablet) 100 mg PO DAILY [facility] Last Admin: 01/02/23 08:48 Dose: 100 mg Documented By: MARY GRACE Sodium Biphosphate/Sodium Phosphate (Sodium Phosphate,[place]-Dibasic 133 Ml Enema) 118 ml FL BEDTIME PRN PRN Reason: Constipation Sodium Chloride (0.9 % Sodium Chloride Flush 3 Ml Syringe) 3 ml IVFLUSH QSHIFT [facility] Last Admin: 01/02/23 08:51 Dose: 3 ml Documented By: MARY GRACE Timolol Maleate (Timolol Maleate 0.5 % Oph Mona 5 Ml Drbtl) 1 drop EYE-RIGHT BID [facility] Last Admin: 01/01/23 21:19 Dose: Not Given Documented By: KRISSY Non-Admin Reason: Med Not Available Tiotropium [place] (Tiotropium [place] 2.5 Mcg Inhaler) 1 puff INHALE RDAILY [facility] Last Admin: 01/02/23 08:19 Dose: 1 puff Documented By: REANNA Zinc Oxide (Zinc Oxide (Triple Paste) 56.7 Gm Oint) 1 appl TOPICAL 8XD PRN; Protocol PRN Reason: Diaper Rash Labs 01/02/23 05:58 01/02/23 05:58 Labs: Laboratory Results - last 24 hr 01/01/23 01/01/23 01/01/23 11:55 16:31 20:28 MCV MCH MCHC RDW Plt Count MPV Absolute Nucleated RBC Nucleated RBC % (auto) Anion Gap Estim Creat Clear Calc Estimated GFR POC Glucose 287 H 449 H* 449 H* Random Glucose Calcium C-Reactive Protein 01/01/23 01/02/23 01/02/23 21:59 00:50 05:58 MCV 84.5 MCH 24.7 L MCHC 29.2 L RDW 17.1 H Plt Count 149 L MPV 12.2 Absolute Nucleated RBC 0.000 Nucleated RBC % (auto) 0.0 Anion Gap 15 Estim Creat Clear Calc 41.4 Estimated GFR 34 POC Glucose 455 H* 321 H Random Glucose 156 H Calcium 8.2 L C-Reactive Protein 6.10 H 01/02/23 01/02/23 07:46 11:37 MCV MCH MCHC RDW Plt Count MPV Absolute Nucleated RBC Nucleated RBC % (auto) Anion Gap Estim Creat Clear Calc Estimated GFR POC Glucose 139 H 248 H Random Glucose Calcium C-Reactive Protein Microbiology Microbiology Results: Microbiology 12/31/22 14:10 Blood Culture - Preliminary Blood - Venous No growth after 24 hours. 12/31/22 12:35 Blood Culture - Preliminary Blood - Venous No growth after 24 hours. Assessment and Plan (1) COVID: Status: Acute Assessment and Plan: d3 72yo M with CKD3, HFpEF, CLL, COPD not on home O2, DM2, LATONYA, hx heart block, morbid obesity, HTN, HLD, PVD, and hypothyroidism who was recently admitted here 12/12-12/15/22 for hypoxia due to CHF exacerbation and discharged back to [facility] for STR completed 2 wk of IV meropenem for ESBL UTI and 4 wk of IV vancomycin for MRSA bacteremia/UTI sent in with dyspnea and found to have Covid-19 infection with hypoxia acute hypoxic resp failure due to Covid-19 infection - wean O2 as tolerated, started remdesivir 12/31-01/04, started dexamethasone 12/31-01/09 [on prednisone 6 mg/d for CLL] UTI with recent ESBL UTI and MRSA UTI/bacteremia cellulitis of sacrum with stage II decubitus ulcers - vanc + pip-sarah 12/31-, ID + Wound Care consults, follow UCx + BCx hyperK - resolved anemia of chronic disease - H+H around baseline of 8 CKD3 - SCr around baseline of 1.5 CLL - conitnue acalabrutinib, resume 6 mg/d prednisone after done with dexamethasone COPD, not in acute exac - continue home controller inhalers- Breo + Spiriva; prn nebs chronic HFpEF - continue bumetanide HTN - hold amlodipine for soft BP DM2 - basal-bolus insulin, sitagliptin mood disorder - continue escitalopram, lorazepam, hydroxyzine, chlordiazepoxide HLD - continue statin morbid obesity - diet/exercise counseling hypothyroidism - continue LT4 VTE ppx - LMWH dispo - STR bed hold In my clinical judgment, the patient requires continued inpatient hospitalization for the following reasons: hypoxia due to Covid-19 Time Spent With Patient Time: Total time managing care of this patient today __40__ minutes. Quality Stroke Does the patient have a stroke diagnosis?: No VTE Prior VTE?: No VTE Risk Level:: Medical - moderate - high VTE Device Contraindication: Treatment Not Indicated VTE Drug Contraindication: N/A - Med Ordered
[2023-01-02] MEDS: timoloL maleate 0.5 % Oph Sol 5 ML DRBTL 1 DROP EYE-RIGHT ×2 (11:57→20:20)
[2023-01-02] MEDS: Insulin Lispro 100 UNIT/ML 3 ML VIAL SUBCUT ×3 (11:57→21:11)
[2023-01-02 12:39] LABS: Vancomycin Random 32.5 mcg/mL (15-20)
--- NOTE | 2023-01-02 13:05 | HE.PHANOTE ---
re vanco trough was 3.25. Pt was getting vanco at facility, not reported on med rec. Could be because it ended. I spoke to the [facility], Her end date was supposed to be 12/25 but they held some doses which is why she got a dose on 12/30. We started the pt on vanco with proper load thinking she was vanco naive. I will put a dose on hold and order another level for the AM. teto
[2023-01-02] MEDS: Nystatin Oral Susp 500,000 UNIT/5 ML ORAL.SUSP 500000 UNIT PO ×3 (13:13→20:19)
[2023-01-02] MEDS: Throat Lozenge, Medicated LOZENGE 1 LOZENGE MUCOUS MEM (13:14)
[2023-01-02] MEDS: Enoxaparin Sodium 40 MG/0.4 ML SYRINGE SUBCUT (16:18)
[2023-01-02 16:50] LABS: Glucose, Whole Blood 336 mg/dL (60-115)
[2023-01-02] MEDS: Remdesivir 100 MG in 0.9 % Sodium Chloride 230 ML 115 MG IV (17:04)
[2023-01-02] MEDS: Atorvastatin Calcium 10 MG TABLET PO (20:15)
[2023-01-02] MEDS: chlordiazePOXIDE HCl 5 MG CAPSULE 10 MG PO (20:16)
[2023-01-02] MEDS: Melatonin 3 MG TABLET 6 MG PO (20:18)
[2023-01-02] MEDS: Latanoprost 0.005 % Ophth Sol 2.5 ML DROPS 1 DROP EYE-BOTH (20:20)
[2023-01-02 20:35] LABS: Glucose, Whole Blood 284 mg/dL (60-115)
[2023-01-03] VITALS (8 sets, daily range): BP systolic 117–145; BP diastolic 46–60; PULSE 69–80; RESP 18–22; TEMP 36.1–37; O2SAT 96–100
[2023-01-03] MEDS: Piperacillin Sodium/Tazobactam 3.375 GM in 0.9 % Sodium Chloride 50 ML IV ×2 (02:28→08:12)
[2023-01-03] MEDS: 0.9 % Sodium Chloride Flush 3 ML SYRINGE IVFLUSH ×3 (02:30→17:16)
[2023-01-03] MEDS: Levothyroxine Sodium 175 MCG TABLET PO (06:36)
[2023-01-03 07:37] LABS: Glucose, Whole Blood 53 mg/dL (60-115)
[2023-01-03 07:53] LABS: Glucose, Whole Blood 53 mg/dL (60-115)
[2023-01-03] MEDS: Nystatin Oral Susp 500,000 UNIT/5 ML ORAL.SUSP 500000 UNIT PO (08:09)
[2023-01-03] MEDS: hydrOXYzine HCL 25 MG TABLET PO (08:09)
[2023-01-03] MEDS: LORazepam 0.5 MG TABLET PO ×2 (08:09→21:06)
[2023-01-03] MEDS: Magnesium Oxide 400 MG TABLET 200 MG PO (08:09)
[2023-01-03] MEDS: guaiFENesin LA 600 MG TAB.ER.12H PO ×2 (08:10→21:06)
[2023-01-03] MEDS: Hydroxychloroquine Sulfate 200 MG TABLET PO ×2 (08:10→21:05)
[2023-01-03] MEDS: Escitalopram Oxalate 10 MG TABLET PO (08:10)
[2023-01-03] MEDS: SITagliptin Phosphate 100 MG TABLET PO (08:10)
[2023-01-03] MEDS: dexAMETHasone sod phosphate 4 MG/ML VIAL 6 MG IVPUSH (08:11)
[2023-01-03] MEDS: Heparin Sodium,Porcine Flush 50 UNITS, 0.9 % Sodium Chloride Flush 5 ML IVFLUSH (08:11)
[2023-01-03] MEDS: Fluticasone/Vilanterol 200/25 BLST.W.DEV 1 PUFF INHALE (08:14)
[2023-01-03 08:30] LABS: Glucose, Whole Blood 84 mg/dL (60-115)
--- NOTE | 2023-01-03 08:32 | PC.NURSE ---
Pt had morning POC of 53. Pt assessed and is awake and alert. Pt reports no symptoms of hypoglycemia. MD notified. Insulin lispro and insulin lantus held. Pt given 24 oz of orange juice with sugar. POC re-checked 15 minutes later with result of 84. MD notified of improved POC.
[2023-01-03 10:18] LABS: Creatinine Clr Calc Pharmacy 46.3; Estimated Glomerular Filt Rate 39
--- NOTE | 2023-01-03 10:44 | MHC.CM.PN ---
EMR reviewed and per MD rounds, pt is not medically cleared for D/C due to continued monitoring of hypoxia, and completion of remdesivir. CM will continue to follow.
[2023-01-03] MEDS: prednisoLONE Acetate 1 % Oph Susp 5 ML DRPBTL 1 DROP EYE-RIGHT (11:18)
[2023-01-03] MEDS: Nystatin Powder 15 GM BOTTLE 1 APPL TOPICAL (11:19)
[2023-01-03] MEDS: timoloL maleate 0.5 % Oph Sol 5 ML DRBTL 1 DROP EYE-RIGHT ×2 (11:19→21:06)
[2023-01-03] MEDS: Artificial Tears 15 ML DROPS 1 DROP EYE-BOTH ×2 (11:19→21:06)
[2023-01-03 11:32] LABS: Glucose, Whole Blood 200 mg/dL (60-115)
--- NOTE | 2023-01-03 11:40 | P.PNIM_ITS ---
Subjective Subjective Date of Service: 01/03/23 Interval History: Complaining of difficulty swallowing due to oral thrush, also complaining of lower back discomfort denies shortness of breath, no cough, is stable finger oximetry will wean oxygen not on home O2, denies nausea vomiting, no fevers, no chills, no other acute issues overnight. Review of Systems All other system reviewed and negative Physical Exam 2 Vital Signs: Vital Signs: Last Vital Signs Temp 97.7 F 01/03/23 07:13 Pulse 75 01/03/23 08:15 Resp 18 01/03/23 08:15 BP 117/51 L 01/03/23 07:13 Pulse Ox 96 01/03/23 07:13 O2 Del Method Nasal Cannula 01/03/23 07:13 O2 Flow Rate 2 01/03/23 07:13 Oxygen Flow Rate 5 12/31/22 11:48 BMI result Body Mass Index 44.3 Const: Other: Gen: Awake alert, in no acute distress HEENT: sclera anicteric, moist mucus membranes, thrush on tongue and cheeks Neck: supple Lungs: diminished, no wheeze, no crackles Heart: regular rate and rhythm, no murmurs Abd: soft, non-tender, non-distended, obese Ext: no edema Skin: warm/well-perfused, R subclavian tunneled catheter, see admission picture for decub ulcer Neuro: alert and oriented x3, no focal findings Psych: appropriate affect Objective Data Active Medications Acetaminophen (Acetaminophen 325 Mg Tablet) 650 mg PO Q6H PRN PRN Reason: Pain, Mild (Pain Scale 1-3) Acetaminophen/Butalbital/Caffeine (Butalb/Acetamin/Caff 50/325/40 Tablet) 1 tab PO Q6H PRN PRN Reason: Headache Albuterol Sulfate (Albuterol Sulfate (0.042%) 1.25 Mg/3 Ml Vial.Neb) 0.63 mg INHALE Q2H PRN PRN Reason: Shortness Of Breath Or Wheezing Artificial Tears (Artificial Tears 15 Ml Drops) 1 drop EYE-BOTH BID [facility] Last Admin: 01/03/23 11:19 Dose: 1 drop Documented By: BRYN Atorvastatin Calcium (Atorvastatin Calcium 10 Mg Tablet) 10 mg PO BEDTIME [facility] Last Admin: 01/02/23 20:15 Dose: 10 mg Documented By: IRINA Benzocaine (Throat Lozenge, Medicated Lozenge) 1 lozenge MUCOUS MEM Q2H PRN PRN Reason: Sore Throat Last Admin: 01/02/23 13:14 Dose: 1 lozenge Documented By: MARY GRACE Bisacodyl (Bisacodyl 10 Mg Supp.Rect) 10 mg ID DAILY PRN PRN Reason: Constipation Bumetanide (Bumetanide 1 Mg Tablet) 2 mg PO BID@0800,1700 [facility]; Protocol Last Admin: 01/02/23 16:18 Dose: 2 mg Documented By: MARY GRACE Chlordiazepoxide HCl (Chlordiazepoxide Hcl 5 Mg Capsule) 10 mg PO BEDTIME [facility] Last Admin: 01/02/23 20:16 Dose: 10 mg Documented By: IRINA Heparin Sodium (Porcine) 50 (units/ Sodium Chloride 5 ml) 0 units IVFLUSH DAILY [facility] Last Admin: 01/03/23 08:11 Dose: 50 unit Documented By: BRYN Dexamethasone Sodium Phosphate (Dexamethasone Sod Phosphate 4 Mg/Ml Vial) 6 mg IVPUSH DAILY [facility] Stop: 01/10/23 15:24 Last Admin: 01/03/23 08:11 Dose: 6 mg Documented By: BRYN Dextrose (Dextrose 50 % 25 Gm/50 Ml Syringe) 25 gm IVPUSH Q15M PRN; Protocol PRN Reason: per Hypoglycemia Standing Ord. Docusate Sodium (Docusate Sodium 100 Mg Capsule) 100 mg PO DAILY PRN PRN Reason: Constipation Enoxaparin Sodium (Enoxaparin Sodium 40 Mg/0.4 Ml Syringe) 40 mg SUBCUT Q24H [facility] Last Admin: 01/02/23 16:18 Dose: 40 mg Documented By: MARY GRACE Escitalopram Oxalate (Escitalopram Oxalate 10 Mg Tablet) 10 mg PO DAILY [facility] Last Admin: 01/03/23 08:10 Dose: 10 mg Documented By: BRYN Fluticasone/Vilanterol (Fluticasone/Vilanterol 200/25 Blst.W.Dev) 1 puff INHALE RDAILY [facility] Last Admin: 01/03/23 08:14 Dose: 1 puff Documented By: MAREK Glucose (Glucose Gel 15 Gm Gel..Gram.) 15 gm PO Q15M PRN; Protocol PRN Reason: per Hypoglycemia Standing Ord. Guaifenesin (Guaifenesin La 600 Mg Tab.Er.12h) 600 mg PO BID [facility] Last Admin: 01/03/23 08:10 Dose: 600 mg Documented By: BRYN Hydroxychloroquine Sulfate (Hydroxychloroquine Sulfate 200 Mg Tablet) 200 mg PO BID [facility] Last Admin: 01/03/23 08:10 Dose: 200 mg Documented By: BRYN Hydroxyzine HCl (Hydroxyzine Hcl 25 Mg Tablet) 25 mg PO DAILY [facility] Last Admin: 01/03/23 08:09 Dose: 25 mg Documented By: BRYN Remdesivir 100 mg/ Sodium (Chloride) 230 mls @ 115 mls/hr IV Q24H [facility] Stop: 01/04/23 17:59 Last Infusion: 01/02/23 19:05 Dose: Infused Documented By: MARY GRACE Piperacillin Sod/Tazobactam (Sod 3.375 gm/ Sodium Chloride) 50 mls @ 100 mls/hr IV Q6H [facility] Last Infusion: 01/03/23 11:00 Dose: Infused Documented By: BRYN Vancomycin HCl 500 mg/ Sodium (Chloride) 110 mls @ 110 mls/hr IV Q24H [facility] Insulin Glargine (Insulin Glargine,Hum.Rec.Anlog 100 Unit/Ml 10 Ml Vial) 16 unit SUBCUT BID [facility] Last Admin: 01/03/23 07:59 Dose: Not Given Documented By: BRYN Non-Admin Reason: LOW BLOOD SUGAR Insulin Human Lispro (Insulin Lispro 100 Unit/Ml 3 Ml Vial) 0 unit SUBCUT QIDACHS [facility]; Protocol Last Admin: 01/03/23 07:57 Dose: Not Given Documented By: BRYN Non-Admin Reason: No Insulin Coverage Latanoprost (Latanoprost 0.005 % Ophth Mona 2.5 Ml Drops) 1 drop EYE-BOTH BEDTIME [facility] Last Admin: 01/02/23 20:20 Dose: 1 drop Documented By: IRINA Levalbuterol HCl (Levalbuterol Hcl 1.25 Mg/3 Ml Vial.Neb) 1.25 mg INHALE RQID [facility] Last Admin: 01/03/23 08:16 Dose: Not Given Documented By: MAREK Non-Admin Reason: See Note Levothyroxine Sodium (Levothyroxine Sodium 175 Mcg Tablet) 175 mcg PO DAILY@0600 [facility] Last Admin: 01/03/23 06:36 Dose: 175 mcg Documented By: IRINA Lidocaine/Diphenhydr/Alum/Mg/Simeth (Mag&Al/Sim/Diphenhyd/Lidocaine 10 Ml Oral.Susp) 10 ml PO Q4H PRN; Protocol PRN Reason: Mouth Sore Pain Lorazepam (Lorazepam 0.5 Mg Tablet) 0.5 mg PO BID [facility] Last Admin: 01/03/23 08:09 Dose: 0.5 mg Documented By: BRYN Magnesium Oxide (Magnesium Oxide 400 Mg Tablet) 200 mg PO DAILY [facility] Last Admin: 01/03/23 08:09 Dose: 200 mg Documented By: BRYN Melatonin (Melatonin 3 Mg Tablet) 6 mg PO BEDTIME [facility] Last Admin: 01/02/23 20:18 Dose: 6 mg Documented By: IRINA Pt Own Med Medication ( Acalabrutinib Maleate [Calquence ( Acalabrutinib Mal)] 100 Mg Tab 100 mg PO Q12H [facility] Last Admin: 01/03/23 11:18 Dose: 100 mg Documented By: BRYN Nystatin (Nystatin Powder 15 Gm Bottle) 1 appl TOPICAL BID [facility]; Protocol Last Admin: 01/03/23 11:19 Dose: 1 appl Documented By: BRYN Nystatin (Nystatin Oral Susp 500,000 Unit/5 Ml Oral.Susp) 500,000 unit PO QID [facility]; Protocol Last Admin: 01/03/23 08:09 Dose: 500,000 unit Documented By: BRYN Ondansetron HCl (Ondansetron Hcl 4 Mg/2 Ml Vial) 4 mg IVPUSH Q8H PRN PRN Reason: Nausea and Vomiting Pharmacy Consult (Consult Rx Vancomycin Dosing) 1 each MISCELLANE DAILY PRN PRN Reason: Consult order Prednisolone Acetate (Prednisolone Acetate 1 % Oph Susp 5 Ml Drpbtl) 1 drop EYE-RIGHT DAILY [facility] Last Admin: 01/03/23 11:18 Dose: 1 drop Documented By: BRYN Senna (Sennosides 8.6 Mg Tablet) 17.2 mg PO DAILY PRN PRN Reason: Constipation Sitagliptin Phosphate (Sitagliptin Phosphate 100 Mg Tablet) 100 mg PO DAILY [facility] Last Admin: 01/03/23 08:10 Dose: 100 mg Documented By: BRYN Sodium Biphosphate/Sodium Phosphate (Sodium Phosphate,Bartholomew-Dibasic 133 Ml Enema) 118 ml ID BEDTIME PRN PRN Reason: Constipation Sodium Chloride (0.9 % Sodium Chloride Flush 3 Ml Syringe) 3 ml IVFLUSH QSHIFT [facility] Last Admin: 01/03/23 08:12 Dose: 3 ml Documented By: BRYN Timolol Maleate (Timolol Maleate 0.5 % Oph Mona 5 Ml Drbtl) 1 drop EYE-RIGHT BID [facility] Last Admin: 01/03/23 11:19 Dose: 1 drop Documented By: BRYN Tiotropium [place] (Tiotropium [place] 2.5 Mcg Inhaler) 1 puff INHALE RDAILY [facility] Last Admin: 01/03/23 08:14 Dose: 1 puff Documented By: MAREK Zinc Oxide (Zinc Oxide (Triple Paste) 56.7 Gm Oint) 1 appl TOPICAL 8XD PRN; Protocol PRN Reason: Diaper Rash Labs 01/02/23 05:58 01/03/23 09:17 Labs: Laboratory Results - last 24 hr 01/02/23 01/02/23 01/02/23 11:37 11:43 16:45 Estim Creat Clear Calc Estimated GFR POC Glucose 248 H 336 H Random Vancomycin 32.5 H* 01/02/23 01/03/23 01/03/23 20:13 07:22 07:47 Estim Creat Clear Calc Estimated GFR POC Glucose 284 H 53 L* 53 L* Random Vancomycin 01/03/23 01/03/23 01/03/23 08:25 09:17 11:24 Estim Creat Clear Calc 46.3 Estimated GFR 39 POC Glucose 84 200 H Random Vancomycin Microbiology Microbiology Results: Microbiology 12/31/22 14:10 Blood Culture - Preliminary Blood - Venous No growth after 48 hours. 12/31/22 12:35 Blood Culture - Preliminary Blood - Venous No growth after 48 hours. Assessment and Plan (1) COVID: Status: Acute Assessment and Plan: 72yo M with CKD3, HFpEF, CLL, COPD not on home O2, DM2, LATONYA, hx heart block, morbid obesity, HTN, HLD, PVD, and hypothyroidism who was recently admitted here 12/12-12/15/22 for hypoxia due to CHF exacerbation and discharged back to [facility] for STR completed 2 wk of IV meropenem for ESBL UTI and 4 wk of IV vancomycin for MRSA bacteremia/UTI sent in with dyspnea and found to have Covid-19 infection with hypoxia acute hypoxic resp failure due to Covid-19 infection - wean O2 as tolerated, on remdesivir 12/31-01/04, on dexamethasone 12/31-01/09 [on prednisone 6 mg/d for CLL] Not on home oxygen, continue supportive care with cough medication Oral thrush continue nystatin UTI with recent ESBL UTI and MRSA UTI/bacteremia cellulitis of sacrum with stage II decubitus ulcers, blood cultures x2 negative, urine culture grew Oly greater than 100,000 On IV vanc + pip-sarah 12/31-, will discuss with ID regarding antibiotic choice and duration ,Wound Care consult pending. Elevated vanco trough, stable renal function Add protein shakes, frequent position change. hyperK - resolved anemia of chronic disease - H+H around baseline of 8 CKD3 - SCr around baseline. CLL - conitnue acalabrutinib, resume 6 mg/d prednisone after done with dexamethasone COPD, not in acute exac - continue home controller inhalers- Breo + Spiriva; prn nebs chronic HFpEF - continue bumetanide HTN - hold amlodipine BP remains soft DM2 noted to have low blood sugars this morning, otherwise mostly high blood sugars with reduce dose of Lantus at bedtime, continue insulin sliding scale and sitagliptin mood disorder - continue escitalopram, lorazepam, hydroxyzine, chlordiazepoxide HLD - continue statin morbid obesity - diet/exercise counseling hypothyroidism - continue LT4 VTE ppx - LMWH dispo - STR bed hold In my clinical judgment, the patient requires continued inpatient hospitalization for the following reasons: hypoxia due to Covid-19 and treatment for extensive Decub ulcer Time Spent With Patient Time: Total time managing care of this patient today ____ minutes. Quality Stroke Does the patient have a stroke diagnosis?: No VTE Prior VTE?: No VTE Risk Level:: Medical - moderate - high VTE Device Contraindication: Treatment Not Indicated VTE Drug Contraindication: N/A - Med Ordered
[2023-01-03 12:47] LABS: Vancomycin Random 26.5 mcg/mL (15-20)
--- NOTE | 2023-01-03 12:58 | HE.PHANOTE ---
[facility] 26.5, RENAL FUNCTION IMPROVING. PT IS DOSE DUMPING. ORDER ON HOLD STILL. NEXT LEVEL 01/04 @1200 BHUPINDER
[2023-01-03] MEDS: Bumetanide 1 MG TABLET 2 MG PO ×2 (13:28→17:19)
[2023-01-03] MEDS: Fluconazole 100 MG TABLET PO (13:28)
[2023-01-03] MEDS: Insulin Lispro 100 UNIT/ML 3 ML VIAL SUBCUT ×3 (13:29→20:53)
[2023-01-03] MEDS: Enoxaparin Sodium 40 MG/0.4 ML SYRINGE SUBCUT (13:29)
--- NOTE | 2023-01-03 14:51 | P.CNID_ITS ---
History of Present Illness Data of Consult Service Date: 01/03/23 Requesting physician: Krystal Guillen Primary Care Provider: Tam Corea MD HPI Reason for consult: reddened gluteal and leg areas She presents with weakness and fatigue. She is on oxygen at home. She has some shortness of breath and found to have COVID. Review of Systems 2 Review of Systems: Yes all other systems are reviewed and are negative [facility] Past Medical History Medical History (Updated 01/03/23 @ 14:54 by Melody Chawla MD) Rash Acute respiratory failure with hypoxia Heart block AV second degree Morbid obesity Acute UTI Acute kidney injury superimposed on CKD Bradycardia Pleural effusion Acute respiratory failure Pneumonia due to COVID-19 virus Chronic lymphocytic leukemia (CLL), B-cell Dyspnea Congestive heart failure COVID-19 Hypoxia Influenza A CLL (chronic lymphocytic leukemia) Suspected deep tissue injury Klebsiella pneumonia Infection with ESBL Klebsiella oxytoca Lymphadenopathy, mediastinal Pleural effusion Congestive heart failure Essential hypertension COVID Lower extremity edema Migraine HTN (hypertension) Pseudotumor cerebri PVD (peripheral vascular disease) Obesity CKD (chronic kidney disease) Diabetes mellitus with insulin therapy Hypothyroidism HLD (hyperlipidemia) Family History Family History Mother Heart attack, Onset Age: 92 Father Heart attack, Onset Age: 66 Other Diabetes Family history: reviewed and not pertinent Surgical History Surgical History S/P appendectomy H/O cataract extraction H/O hysterectomy for benign disease Hx of cholecystectomy Social History Social History Household Members: Family Household Members Other:: patient came from a rehab facility, been there since dec Housing: House Do you presently have visiting nurse or other home services: No Alcohol intake: former Patient Tobacco Use Status: Former Tobacco user Smoked in Last 30 Days: No Second Hand Smoke Exposure: No Use of substances other than those prescribed or required for medical reasons: No Currently Displaying Signs/Symptoms of Drug Intoxication Withdrawal: No Have you been hit, kicked, punched, or otherwise hurt by someone within the past year? If so, by whom?: No Do you feel safe in your current relationship?: No Current Relationship Is there a partner from a previous relationship who is making you feel unsafe now?: No Are you made to feel afraid or neglected: No [employer] Healthcare Practices: baptism Advance Directives: Yes Advance Directives on File: Yes Advance Directives Date on File: 09/26/20 Do you have thoughts of harming others: None Do you have a plan to hurt others: No Plan Recently lost weight without trying: No Nutrition Risks: No Nutritional Risk Patient : No : No Poor oral hygiene: No service: No Current occupational status: disabled Meds Allergies Allergy/AdvReac Type Severity Reaction Status Date / Time oxycodone [From Percocet] Allergy Intermediate Rash Verified 04/27/22 11:42 lisinopril Allergy Unknown Unknown Verified 04/27/22 11:42 metoprolol AdvReac Severe bradycardia Verified 12/13/22 10:47 Active Medications: Current Medications Acetaminophen (Acetaminophen 325 Mg Tablet) 650 mg PO Q6H PRN PRN Reason: Pain, Mild (Pain Scale 1-3) Acetaminophen/Butalbital/Caffeine (Butalb/Acetamin/Caff 50/325/40 Tablet) 1 tab PO Q6H PRN PRN Reason: Headache Albuterol Sulfate (Albuterol Sulfate (0.042%) 1.25 Mg/3 Ml Vial.Neb) 0.63 mg INHALE Q2H PRN PRN Reason: Shortness Of Breath Or Wheezing Artificial Tears (Artificial Tears 15 Ml Drops) 1 drop EYE-BOTH BID COUNT INCLUDES THE [facility] Last Admin: 01/03/23 11:19 Dose: 1 drop Atorvastatin Calcium (Atorvastatin Calcium 10 Mg Tablet) 10 mg PO BEDTIME COUNT INCLUDES THE [facility] Last Admin: 01/02/23 20:15 Dose: 10 mg Benzocaine (Throat Lozenge, Medicated Lozenge) 1 lozenge MUCOUS MEM Q2H PRN PRN Reason: Sore Throat Last Admin: 01/02/23 13:14 Dose: 1 lozenge Bisacodyl (Bisacodyl 10 Mg Supp.Rect) 10 mg NV DAILY PRN PRN Reason: Constipation Bumetanide (Bumetanide 1 Mg Tablet) 2 mg PO BID@0800,1700 COUNT INCLUDES THE [facility]; Protocol Last Admin: 01/03/23 13:28 Dose: 2 mg Chlordiazepoxide HCl (Chlordiazepoxide Hcl 5 Mg Capsule) 10 mg PO BEDTIME COUNT INCLUDES THE [facility] Last Admin: 01/02/23 20:16 Dose: 10 mg Heparin Sodium (Porcine) 50 (units/ Sodium Chloride 5 ml) 0 units IVFLUSH DAILY COUNT INCLUDES THE [facility] Last Admin: 01/03/23 08:11 Dose: 50 unit Dexamethasone Sodium Phosphate (Dexamethasone Sod Phosphate 4 Mg/Ml Vial) 6 mg IVPUSH DAILY COUNT INCLUDES THE [facility] Stop: 01/10/23 15:24 Last Admin: 01/03/23 08:11 Dose: 6 mg Dextrose (Dextrose 50 % 25 Gm/50 Ml Syringe) 25 gm IVPUSH Q15M PRN; Protocol PRN Reason: per Hypoglycemia Standing Ord. Docusate Sodium (Docusate Sodium 100 Mg Capsule) 100 mg PO DAILY PRN PRN Reason: Constipation Enoxaparin Sodium (Enoxaparin Sodium 40 Mg/0.4 Ml Syringe) 40 mg SUBCUT Q24H COUNT INCLUDES THE [facility] Last Admin: 01/03/23 13:29 Dose: 40 mg Escitalopram Oxalate (Escitalopram Oxalate 10 Mg Tablet) 10 mg PO DAILY COUNT INCLUDES THE [facility] Last Admin: 01/03/23 08:10 Dose: 10 mg Fluconazole (Fluconazole 100 Mg Tablet) 100 mg PO DAILY COUNT INCLUDES THE [facility] Stop: 01/12/23 09:01 Last Admin: 01/03/23 13:28 Dose: 100 mg Fluticasone/Vilanterol (Fluticasone/Vilanterol 200/25 Blst.W.Dev) 1 puff INHALE RDAILY COUNT INCLUDES THE [facility] Last Admin: 01/03/23 08:14 Dose: 1 puff Glucose (Glucose Gel 15 Gm Gel..Gram.) 15 gm PO Q15M PRN; Protocol PRN Reason: per Hypoglycemia Standing Ord. Guaifenesin (Guaifenesin La 600 Mg Tab.Er.12h) 600 mg PO BID COUNT INCLUDES THE [facility] Last Admin: 01/03/23 08:10 Dose: 600 mg Hydroxychloroquine Sulfate (Hydroxychloroquine Sulfate 200 Mg Tablet) 200 mg PO BID COUNT INCLUDES THE [facility] Last Admin: 01/03/23 08:10 Dose: 200 mg Hydroxyzine HCl (Hydroxyzine Hcl 25 Mg Tablet) 25 mg PO DAILY COUNT INCLUDES THE [facility] Last Admin: 01/03/23 08:09 Dose: 25 mg Remdesivir 100 mg/ Sodium (Chloride) 230 mls @ 115 mls/hr IV Q24H COUNT INCLUDES THE [facility] Stop: 01/04/23 17:59 Last Infusion: 01/02/23 19:05 Dose: Infused Insulin Glargine (Insulin Glargine,Hum.Rec.Anlog 100 Unit/Ml 10 Ml Vial) 16 unit SUBCUT DAILY COUNT INCLUDES THE [facility] Insulin Human Lispro (Insulin Lispro 100 Unit/Ml 3 Ml Vial) 0 unit SUBCUT QIDACHS COUNT INCLUDES THE [facility]; Protocol Last Admin: 01/03/23 13:29 Dose: 4 unit Latanoprost (Latanoprost 0.005 % Ophth Mona 2.5 Ml Drops) 1 drop EYE-BOTH BEDTIME COUNT INCLUDES THE [facility] Last Admin: 01/02/23 20:20 Dose: 1 drop Levalbuterol HCl (Levalbuterol Hcl 1.25 Mg/3 Ml Vial.Neb) 1.25 mg INHALE RQID COUNT INCLUDES THE [facility] Last Admin: 01/03/23 11:50 Dose: Not Given Levothyroxine Sodium (Levothyroxine Sodium 175 Mcg Tablet) 175 mcg PO DAILY@0600 COUNT INCLUDES THE [facility] Last Admin: 01/03/23 06:36 Dose: 175 mcg Lidocaine/Diphenhydr/Alum/Mg/Simeth (Mag&Al/Sim/Diphenhyd/Lidocaine 10 Ml Oral.Susp) 10 ml PO Q4H PRN; Protocol PRN Reason: Mouth Sore Pain Lorazepam (Lorazepam 0.5 Mg Tablet) 0.5 mg PO BID COUNT INCLUDES THE [facility] Last Admin: 01/03/23 08:09 Dose: 0.5 mg Magnesium Oxide (Magnesium Oxide 400 Mg Tablet) 200 mg PO DAILY COUNT INCLUDES THE [facility] Last Admin: 01/03/23 08:09 Dose: 200 mg Melatonin (Melatonin 3 Mg Tablet) 6 mg PO BEDTIME COUNT INCLUDES THE [facility] Last Admin: 01/02/23 20:18 Dose: 6 mg Pt Own Med Medication ( Acalabrutinib Maleate [Calquence ( Acalabrutinib Mal)] 100 Mg Tab 100 mg PO Q12H COUNT INCLUDES THE [facility] Last Admin: 01/03/23 11:18 Dose: 100 mg Nystatin (Nystatin Powder 15 Gm Bottle) 1 appl TOPICAL BID COUNT INCLUDES THE [facility]; Protocol Last Admin: 01/03/23 11:19 Dose: 1 appl Ondansetron HCl (Ondansetron Hcl 4 Mg/2 Ml Vial) 4 mg IVPUSH Q8H PRN PRN Reason: Nausea and Vomiting Pharmacy Consult (Consult Rx Vancomycin Dosing) 1 each MISCELLANE DAILY PRN PRN Reason: Consult order Prednisolone Acetate (Prednisolone Acetate 1 % Oph Susp 5 Ml Drpbtl) 1 drop EYE-RIGHT DAILY COUNT INCLUDES THE [facility] Last Admin: 01/03/23 11:18 Dose: 1 drop Senna (Sennosides 8.6 Mg Tablet) 17.2 mg PO DAILY PRN PRN Reason: Constipation Sitagliptin Phosphate (Sitagliptin Phosphate 100 Mg Tablet) 100 mg PO DAILY COUNT INCLUDES THE [facility] Last Admin: 01/03/23 08:10 Dose: 100 mg Sodium Biphosphate/Sodium Phosphate (Sodium Phosphate,[place]-Dibasic 133 Ml Enema) 118 ml NV BEDTIME PRN PRN Reason: Constipation Sodium Chloride (0.9 % Sodium Chloride Flush 3 Ml Syringe) 3 ml IVFLUSH QSHIFT COUNT INCLUDES THE [facility] Last Admin: 01/03/23 08:12 Dose: 3 ml Timolol Maleate (Timolol Maleate 0.5 % Oph Mona 5 Ml Drbtl) 1 drop EYE-RIGHT BID COUNT INCLUDES THE [facility] Last Admin: 01/03/23 11:19 Dose: 1 drop Tiotropium Loring (Tiotropium Loring 2.5 Mcg Inhaler) 1 puff INHALE RDAILY COUNT INCLUDES THE [facility] Last Admin: 01/03/23 08:14 Dose: 1 puff Zinc Oxide (Zinc Oxide (Triple Paste) 56.7 Gm Oint) 1 appl TOPICAL 8XD PRN; Protocol PRN Reason: Diaper Rash Home Medications Medication Instructions Recorded Confirmed Last Taken Type chlordiazepoxide HCl 10 mg capsule 10 mg PO BEDTIME 10/08/21 12/31/22 Unknown History citalopram 20 mg tablet 20 mg PO DAILY 10/08/21 12/31/22 Unknown History insulin lispro protamine-lispro 0 unit subcut QIDACHS 10/08/21 12/31/22 Unknown History 100 unit/mL (75-25) subcutaneous pen levothyroxine 175 mcg tablet 175 mcg PO DAILY@0600 10/08/21 12/31/22 Unknown History simvastatin 20 mg tablet 20 mg PO BEDTIME 10/08/21 12/31/22 Unknown History sitagliptin phosphate 100 mg 100 mg PO DAILY 10/08/21 12/31/22 Unknown History tablet (Januvia) latanoprost 0.005 % eye drops 1 drp ophthalmic (eye) BEDTIME 11/20/21 12/31/22 Unknown History albuterol sulfate 0.63 mg/3 mL 0.63 mg inhalation Q2H PRN 02/16/22 12/31/22 Unknown History solution for nebulization Shortness Of Breath Or Wheezing brinzolamide 1 %-brimonidine 0.2 % 1 drp ophthalmic-Right BID 02/16/22 12/31/22 Unknown History eye drops,suspension (Simbrinza) [id number] 1 tab PO Q6H PRN Headache 02/16/22 12/31/22 Unknown History 50 mg-325 mg-40 mg tablet coenzyme Q10 100 mg capsule 150 mg PO DAILY 02/16/22 12/31/22 Unknown History (CoQ-10) insulin glargine 100 unit/mL (3 16 unit subcut BID 02/16/22 12/31/22 Unknown History mL) subcutaneous pen (Lantus Solostar U-100 Insulin) melatonin 5 mg tablet 5 mg PO BEDTIME 02/16/22 12/31/22 Unknown History prednisolone acetate 1 % eye 1 drp ophthalmic-Right DAILY 02/16/22 12/31/22 Unknown History drops,suspension sennosides 8.6 mg tablet (senna) 17.2 mg PO DAILY PRN Constipation 02/16/22 12/31/22 Unknown History timolol maleate 0.5 % eye drops 1 drp ophthalmic-Right BID 02/16/22 12/31/22 Unknown History carboxymethylcellulose sodium 1 % 1 drp ophthalmic (eye) BID 03/15/22 12/31/22 Unknown History eye drops (Artificial Tears (carboxymethylcellulose)) budesonide-formoterol HFA 160 2 puff inhalation BID 04/27/22 12/31/22 Unknown History mcg-4.5 mcg/actuation aerosol inhaler (Symbicort) umeclidinium 62.5 mcg/actuation 1 inh inhalation DAILY 04/27/22 12/31/22 Unknown History blister powder for inhalation (Incruse Ellipta) acetaminophen 325 mg tablet 650 mg PO Q4H PRN Pain (Scale 06/08/22 12/31/22 Unknown History (Tylenol) Score 4-6) amlodipine 10 mg tablet 10 mg PO DAILY high blood pressure 06/08/22 12/31/22 Unknown History guaifenesin 600 mg tablet, 600 mg PO BID cough 06/08/22 12/31/22 Unknown History extended release 12 hr sodium phosphates 19 gram-7 118 ml NV BEDTIME PRN Constipation 06/08/22 12/31/22 Unknown History gram/118 mL enema (Fleet Enema) levalbuterol HCl 1.25 mg/3 mL 1.25 mg inhalation QID 07/30/22 12/31/22 Unknown History solution for nebulization biotin 5 mg tablet 5 mg PO DAILY 08/11/22 12/31/22 Unknown History bisacodyl 10 mg rectal suppository 10 mg NV DAILY PRN Constipation 08/11/22 12/31/22 Unknown History hydroxychloroquine 200 mg tablet 200 mg PO BID 08/11/22 12/31/22 Unknown History hydroxyzine HCl 25 mg tablet 25 mg PO DAILY 08/11/22 12/31/22 Unknown History lorazepam 0.5 mg tablet 0.5 mg PO BID Anxiety 08/11/22 12/31/22 Unknown History magnesium 200 mg tablet 200 mg PO DAILY 08/11/22 12/31/22 Unknown History riboflavin (vitamin B2) 400 mg 400 mg PO DAILY 08/11/22 12/31/22 Unknown History tablet diphenhydramine-zinc acetate 2 1 appl topical BID 10/27/22 12/31/22 Unknown History %-0.1 % topical cream nystatin 100,000 unit/gram topical 1 appl topical BID 10/27/22 12/31/22 Unknown History powder prednisone 1 mg tablet 6 mg PO DAILY 10/27/22 12/31/22 Unknown History acidophilus 100 million 1 cap PO BID 12/12/22 12/31/22 Unknown History cell-pectin, citrus 10 mg capsule bumetanide 1 mg tablet 2 mg PO BID@0800,1700 12/31/22 12/31/22 Unknown History Physical Exam 2 Vital Signs: Vital Signs: Last Vital Signs Temp 97.3 F 01/03/23 12:00 Pulse 78 01/03/23 12:00 Resp 20 01/03/23 12:00 BP 125/46 L 01/03/23 12:00 Pulse Ox 96 01/03/23 12:00 O2 Del Method Room Air 01/03/23 12:00 O2 Flow Rate 1 01/03/23 12:00 Oxygen Flow Rate 5 12/31/22 11:48 BMI result Body Mass Index 44.3 Const: General: cooperative HEENT: Head: Yes normal to inspection Face and sinus: Yes normal facial exam Mouth: Normal oral and palatal mucosa present Teeth and gingiva: d entition normal Eyes: General: appearance normal, both eyes and all related structures P upils: Equal, round and reactive pupils present Resp: Effort & Inspection: able to speak in complete sentences Cardio: Rate: regular rate Rhythm: regular rhythm GI: Palpation (GI): Soft to palpation and nontender : General: Yes no CVA tenderness Back/Spine/Pelvis: Back: no CVA tenderness Skin: Other: redness buttock area,right mostly down leg,some itching General skin exam: no rashes or lesions noted Neuro: General: moves all extremities Cranial nerves: Yes Equal, round and reactive pupils present Extrem: General: Yes normal to inspection Psych: Appearance: grossly normal Results Labs 01/02/23 05:58 01/03/23 09:17 Labs: BMP 01/03/23 09:17 Creatinine 1.35 Microbiology Microbiology Results: Microbiology 12/31/22 14:10 Blood - Venous Blood Culture - Preliminary No growth after 48 hours. 12/31/22 12:35 Blood - Venous Blood Culture - Preliminary No growth after 48 hours. Assessment and Plan (1) COVID: Status: Acute Dexamethasone and Remdesivir in within a week. Continue oxygen. Stop above when back to baseline oxygen. (2) Congestive heart failure: Status: Acute (3) Rash: Status: Acute Probable fungal Po Diflucan (also found in urine) for 10 days. Time Spent With Patient Time: Total time managing care of this patient today ____ minutes.
--- NOTE | 2023-01-03 15:05 | HO.WOUND ---
Wound Care Consult Reason for consult: Stage II decubitus on back side and upper thighs Patient resides in a nursing facility. She is having frequent incontinent episodes of urine and loose stool. Patient was in bed at the time of the consult. She is at least a 2 person assist for repositioning. Patient has both moisture related dermatitis and a stage II pressure injury to her right buttock. At this time, the patient had another incontinent episode of both urine and stool. Foam border had fallen off from the stool. Very painful when cleaning the area. The skin on the lower sacral area,bilateral buttocks especially around the perianal area, and the posterior upper thighs towards the gluteal folds are extremely red and inflamed. Areas of the skin were bleeding from cleaning. Patient stated she just started having loose stools last night. On the right buttock there is a cluster of 2 stage II PI's. Wound bed appearance was large pink. Drainage is hard to assess due to the incontinence. Wound edges are a little hypertrophic but intact and attached. Zinc barrier cream applied to all reddened and excoriated areas. Recommendation: Because of the location of these areas and the frequent episodes of incontinence, wound dressings are not going to be a good option for this patient. Would apply Triad Wound dressing to both the excoriated areas as well as the stage II areas on the right buttock. Apply at least daily and with incontinent episodes. And refrain from rubbing these areas hard. Patient will need frequent repositioning, at least every 2 hours to prevent from further skin deterioration. Continue to keep skin dry and clean from incontinence as much as possible. If there area any changes or questions, please feel free and reconsult wound care.
[2023-01-03 16:16] LABS: Glucose, Whole Blood 300 mg/dL (60-115)
[2023-01-03] MEDS: Remdesivir 100 MG in 0.9 % Sodium Chloride 230 ML 115 MG IV (17:16)
[2023-01-03] MEDS: levalbuterol HCL 1.25 MG/3 ML VIAL.NEB INHALE (19:29)
[2023-01-03 19:47] LABS: Glucose, Whole Blood 313 mg/dL (60-115)
[2023-01-03] MEDS: Melatonin 3 MG TABLET 6 MG PO (21:05)
[2023-01-03] MEDS: Atorvastatin Calcium 10 MG TABLET PO (21:05)
[2023-01-03] MEDS: chlordiazePOXIDE HCl 5 MG CAPSULE 10 MG PO (21:05)
[2023-01-03] MEDS: Latanoprost 0.005 % Ophth Sol 2.5 ML DROPS 1 DROP EYE-BOTH (21:06)
[2023-01-04] VITALS (9 sets, daily range): BP systolic 120–147; BP diastolic 56–69; PULSE 72–81; RESP 18–20; TEMP 36.1–36.9; O2SAT 95–100
[2023-01-04] MEDS: 0.9 % Sodium Chloride Flush 3 ML SYRINGE IVFLUSH ×4 (01:29→22:23)
[2023-01-04] MEDS: Levothyroxine Sodium 175 MCG TABLET PO (06:56)
[2023-01-04 07:11] LABS: Hematocrit 25.5 % (37.0-47.0); Hemoglobin 7.8 g/dl (12.0-16.0); Mean Corpuscular HGB Conc 30.6 g/dl (31.0-35.0); Mean Corpuscular Hemoglobin 25.7 pg (27.0-33.0); Mean Corpuscular Volume 83.9 fL (80.0-98.0); Mean Platelet Volume 12.5 fL (9.4-12.3); Platelet Count 106 X10*3/uL (160-400); Red Blood Count 3.04 X10*6/uL (4.20-5.50); Red Cell Distribution Width 17.1 % (11.0-16.0); White Blood Count 15.5 X10*3/uL (4.8-10.8)
[2023-01-04 07:16] LABS: Glucose, Whole Blood 121 mg/dL (60-115)
[2023-01-04 07:33] LABS: Anion Gap 11 (12-20); Blood Urea Nitrogen 36 mg/dL (9-16); Calcium 7.8 mg/dL (8.4-10.2); Carbon Dioxide 31 mmol/L (22-29); Chloride 102 mmol/L (96-108); Creatinine Clr Calc Pharmacy 61.9; Estimated Glomerular Filt Rate 54; Glucose Random 114 mg/dL (60-115); Potassium 2.9 mmol/L (3.3-5.1); Sodium 141 mmol/L (135-145)
[2023-01-04] MEDS: timoloL maleate 0.5 % Oph Sol 5 ML DRBTL 1 DROP EYE-RIGHT ×2 (07:50→22:20)
[2023-01-04] MEDS: Insulin Lispro 100 UNIT/ML 3 ML VIAL SUBCUT ×4 (07:50→22:21)
[2023-01-04] MEDS: prednisoLONE Acetate 1 % Oph Susp 5 ML DRPBTL 1 DROP EYE-RIGHT (07:50)
[2023-01-04] MEDS: Artificial Tears 15 ML DROPS 1 DROP EYE-BOTH ×2 (07:50→22:20)
[2023-01-04] MEDS: Insulin Glargine,Hum.rec.anlog 100 UNIT/ML 10 ML VIAL 16 UNIT SUBCUT (07:51)
[2023-01-04] MEDS: dexAMETHasone sod phosphate 4 MG/ML VIAL 6 MG IVPUSH (07:53)
[2023-01-04] MEDS: Heparin Sodium,Porcine Flush 50 UNITS, 0.9 % Sodium Chloride Flush 5 ML IVFLUSH (07:53)
[2023-01-04] MEDS: Fluconazole 100 MG TABLET PO (07:54)
[2023-01-04] MEDS: Magnesium Oxide 400 MG TABLET 200 MG PO (07:55)
[2023-01-04] MEDS: Escitalopram Oxalate 10 MG TABLET PO (07:55)
[2023-01-04] MEDS: hydrOXYzine HCL 25 MG TABLET PO (07:55)
[2023-01-04] MEDS: guaiFENesin LA 600 MG TAB.ER.12H PO ×2 (07:55→22:19)
[2023-01-04] MEDS: SITagliptin Phosphate 100 MG TABLET PO (07:56)
[2023-01-04] MEDS: LORazepam 0.5 MG TABLET PO ×2 (07:56→22:19)
[2023-01-04] MEDS: Hydroxychloroquine Sulfate 200 MG TABLET PO ×2 (07:57→22:19)
[2023-01-04] MEDS: Fluticasone/Vilanterol 200/25 BLST.W.DEV 1 PUFF INHALE (07:57)
[2023-01-04] MEDS: levalbuterol HCL 1.25 MG/3 ML VIAL.NEB INHALE ×4 (08:01→18:44)
[2023-01-04] MEDS: Potassium Chloride ER 20 MEQ TAB.ER.PRT 60 MEQ PO (09:01)
[2023-01-04] MEDS: guaiFENesin DM 100/10/5 ML 5 ML SYRUP 10 ML PO ×4 (11:12→23:40)
[2023-01-04] MEDS: Loperamide HCl 2 MG CAPSULE PO (11:13)
[2023-01-04 11:21] LABS: Glucose, Whole Blood 245 mg/dL (60-115)
[2023-01-04 12:57] LABS: Vancomycin Random 19.6 mcg/mL (15-20)
[2023-01-04] MEDS: Mag&Al/Sim/Diphenhyd/Lidocaine 10 ML ORAL.SUSP PO (13:13)
[2023-01-04 14:48] LABS: CDiff Gene PCR NEGATIVE (Negative)
[2023-01-04] MEDS: Enoxaparin Sodium 40 MG/0.4 ML SYRINGE SUBCUT (15:16)
--- NOTE | 2023-01-04 15:25 | P.PNIM_ITS ---
Subjective Subjective Date of Service: 01/04/23 Interval History: Complaining of loose stools 5 in last 24 hours, also complaining of congestion cough productive of some phlegm denies fever, no chills, denies abdominal pain tolerating diet with no nausea no vomiting, denies shortness of breath, no chest pain, no palpitations, no other acute issues overnight. Noted to have low potassium of 2.9 and slight drop in hematocrit to 25.5, no active bleeding noted. Review of Systems All other system reviewed and negative. Constitutional Gen: Awake alert, in no acute distress HEENT: sclera anicteric, moist mucus membranes, thrush on tongue and cheeks Neck: supple Lungs: diminished, no wheeze, no crackles Heart: regular rate and rhythm, no murmurs Abd: soft, non-tender, non-distended, bowel sounds audible Ext: no edema Skin: warm/well-perfused, R subclavian tunneled catheter, see admission picture for decub ulcer Neuro: alert and oriented x3, no focal findings Psych: appropriate affect Physical Exam 2 Vital Signs: Vital Signs: Last Vital Signs Temp 96.9 F 01/04/23 15:07 Pulse 75 01/04/23 15:07 Resp 20 01/04/23 15:07 BP 147/69 H 01/04/23 15:07 Pulse Ox 99 01/04/23 15:07 O2 Del Method Nasal Cannula 01/04/23 15:07 O2 Flow Rate 2 01/04/23 15:07 Oxygen Flow Rate 5 12/31/22 11:48 BMI result Body Mass Index 44.3 Objective Data Active Medications Acetaminophen (Acetaminophen 325 Mg Tablet) 650 mg PO Q6H PRN PRN Reason: Pain, Mild (Pain Scale 1-3) Acetaminophen/Butalbital/Caffeine (Butalb/Acetamin/Caff 50/325/40 Tablet) 1 tab PO Q6H PRN PRN Reason: Headache Albuterol Sulfate (Albuterol Sulfate (0.042%) 1.25 Mg/3 Ml Vial.Neb) 0.63 mg INHALE Q2H PRN PRN Reason: Shortness Of Breath Or Wheezing Artificial Tears (Artificial Tears 15 Ml Drops) 1 drop EYE-BOTH BID ALAN Last Admin: 01/04/23 07:50 Dose: 1 drop Documented By: ROHITH Atorvastatin Calcium (Atorvastatin Calcium 10 Mg Tablet) 10 mg PO BEDTIME [facility] Last Admin: 01/03/23 21:05 Dose: 10 mg Documented By: IRINA Benzocaine (Throat Lozenge, Medicated Lozenge) 1 lozenge MUCOUS MEM Q2H PRN PRN Reason: Sore Throat Last Admin: 01/02/23 13:14 Dose: 1 lozenge Documented By: MARY GRACE Bisacodyl (Bisacodyl 10 Mg Supp.Rect) 10 mg [place] DAILY PRN PRN Reason: Constipation Bumetanide (Bumetanide 1 Mg Tablet) 1 mg PO BID@0800,1700 [facility]; Protocol Chlordiazepoxide HCl (Chlordiazepoxide Hcl 5 Mg Capsule) 10 mg PO BEDTIME [facility] Last Admin: 01/03/23 21:05 Dose: 10 mg Documented By: IRINA Heparin Sodium (Porcine) 50 (units/ Sodium Chloride 5 ml) 0 units IVFLUSH DAILY [facility] Last Admin: 01/04/23 07:53 Dose: 50 unit Documented By: ROHITH Dexamethasone Sodium Phosphate (Dexamethasone Sod Phosphate 4 Mg/Ml Vial) 6 mg IVPUSH DAILY [facility] Stop: 01/10/23 15:24 Last Admin: 01/04/23 07:53 Dose: 6 mg Documented By: ROHITH Dextrose (Dextrose 50 % 25 Gm/50 Ml Syringe) 25 gm IVPUSH Q15M PRN; Protocol PRN Reason: per Hypoglycemia Standing Ord. Docusate Sodium (Docusate Sodium 100 Mg Capsule) 100 mg PO DAILY PRN PRN Reason: Constipation Enoxaparin Sodium (Enoxaparin Sodium 40 Mg/0.4 Ml Syringe) 40 mg SUBCUT Q24H [facility] Last Admin: 01/04/23 15:16 Dose: 40 mg Documented By: ROHITH(2) Escitalopram Oxalate (Escitalopram Oxalate 10 Mg Tablet) 10 mg PO DAILY [facility] Last Admin: 01/04/23 07:55 Dose: 10 mg Documented By: ROHITH Fluconazole (Fluconazole 100 Mg Tablet) 100 mg PO DAILY [facility] Stop: 01/12/23 09:01 Last Admin: 01/04/23 07:54 Dose: 100 mg Documented By: ROHITH Fluticasone/Vilanterol (Fluticasone/Vilanterol 200/25 Ming) 1 puff INHALE RDAILY [facility] Last Admin: 01/04/23 07:57 Dose: 1 puff Documented By: MAREK Glucose (Glucose Gel 15 Gm Gel..Gram.) 15 gm PO Q15M PRN; Protocol PRN Reason: per Hypoglycemia Standing Ord. Guaifenesin (Guaifenesin La 600 Mg Tab.Er.12h) 600 mg PO BID [facility] Last Admin: 01/04/23 07:55 Dose: 600 mg Documented By: ROHITH Guaifenesin/Dextromethorphan (Guaifenesin Dm 100/10/5 Ml 5 Ml Syrup) 10 ml PO QID [facility] Last Admin: 01/04/23 13:07 Dose: 10 ml Documented By: ROHITH Hydroxychloroquine Sulfate (Hydroxychloroquine Sulfate 200 Mg Tablet) 200 mg PO BID [facility] Last Admin: 01/04/23 07:57 Dose: 200 mg Documented By: ROHITH Hydroxyzine HCl (Hydroxyzine Hcl 25 Mg Tablet) 25 mg PO DAILY [facility] Last Admin: 01/04/23 07:55 Dose: 25 mg Documented By: ROHITH Remdesivir 100 mg/ Sodium (Chloride) 230 mls @ 115 mls/hr IV Q24H [facility] Stop: 01/04/23 17:59 Last Infusion: 01/03/23 19:25 Dose: Infused Documented By: IRINA Insulin Glargine (Insulin Glargine,Hum.Rec.Anlog 100 Unit/Ml 10 Ml Vial) 16 unit SUBCUT DAILY [facility] Last Admin: 01/04/23 07:51 Dose: 16 unit Documented By: ROHITH Insulin Human Lispro (Insulin Lispro 100 Unit/Ml 3 Ml Vial) 0 unit SUBCUT QIDACHS [facility]; Protocol Last Admin: 01/04/23 11:51 Dose: 7 unit Documented By: ROHITH Latanoprost (Latanoprost 0.005 % Ophth Mona 2.5 Ml Drops) 1 drop EYE-BOTH BEDTIME [facility] Last Admin: 01/03/23 21:06 Dose: 1 drop Documented By: IRINA Levalbuterol HCl (Levalbuterol Hcl 1.25 Mg/3 Ml Vial.Neb) 1.25 mg INHALE RQID [facility] Last Admin: 01/04/23 12:27 Dose: 1.25 mg Documented By: NINA Levothyroxine Sodium (Levothyroxine Sodium 175 Mcg Tablet) 175 mcg PO DAILY@0600 [facility] Last Admin: 01/04/23 06:56 Dose: 175 mcg Documented By: IRINA Lidocaine/Diphenhydr/Alum/Mg/Simeth (Mag&Al/Sim/Diphenhyd/Lidocaine 10 Ml Oral.Susp) 10 ml PO Q4H PRN; Protocol PRN Reason: Mouth Sore Pain Last Admin: 01/04/23 13:13 Dose: 10 ml Documented By: ROHITH Loperamide HCl (Loperamide Hcl 2 Mg Capsule) 2 mg PO Q6H PRN PRN Reason: Diarrhea Last Admin: 01/04/23 11:13 Dose: 2 mg Documented By: ROHITH Lorazepam (Lorazepam 0.5 Mg Tablet) 0.5 mg PO BID [facility] Last Admin: 01/04/23 07:56 Dose: 0.5 mg Documented By: ROHITH Magnesium Oxide (Magnesium Oxide 400 Mg Tablet) 200 mg PO DAILY [facility] Last Admin: 01/04/23 07:55 Dose: 200 mg Documented By: ROHITH Melatonin (Melatonin 3 Mg Tablet) 6 mg PO BEDTIME [facility] Last Admin: 01/03/23 21:05 Dose: 6 mg Documented By: IRINA Pt Own Med Medication ( Acalabrutinib Maleate [Calquence ( Acalabrutinib Mal)] 100 Mg Tab 100 mg PO Q12H [facility] Last Admin: 01/04/23 08:07 Dose: 100 mg Documented By: ROHITH Nystatin (Nystatin Powder 15 Gm Bottle) 1 appl TOPICAL BID [facility]; Protocol Last Admin: 01/04/23 08:08 Dose: Not Given Documented By: ROHITH Non-Admin Reason: Med Not Available Ondansetron HCl (Ondansetron Hcl 4 Mg/2 Ml Vial) 4 mg IVPUSH Q8H PRN PRN Reason: Nausea and Vomiting Pharmacy Consult (Consult Rx Vancomycin Dosing) 1 each MISCELLANE DAILY PRN PRN Reason: Consult order Prednisolone Acetate (Prednisolone Acetate 1 % Oph Susp 5 Ml Drpbtl) 1 drop EYE-RIGHT DAILY [facility] Last Admin: 01/04/23 07:50 Dose: 1 drop Documented By: ROHITH Senna (Sennosides 8.6 Mg Tablet) 17.2 mg PO DAILY PRN PRN Reason: Constipation Sitagliptin Phosphate (Sitagliptin Phosphate 100 Mg Tablet) 100 mg PO DAILY [facility] Last Admin: 01/04/23 07:56 Dose: 100 mg Documented By: ROHITH Sodium Biphosphate/Sodium Phosphate (Sodium Phosphate,[place]-Dibasic 133 Ml Enema) 118 ml [place] BEDTIME PRN PRN Reason: Constipation Sodium Chloride (0.9 % Sodium Chloride Flush 3 Ml Syringe) 3 ml IVFLUSH QSHIFT [facility] Last Admin: 01/04/23 07:53 Dose: 3 ml Documented By: ROHITH Timolol Maleate (Timolol Maleate 0.5 % Oph Mona 5 Ml Drbtl) 1 drop EYE-RIGHT BID [facility] Last Admin: 01/04/23 07:50 Dose: 1 drop Documented By: ROHITH Tiotropium Minerva (Tiotropium Minerva 2.5 Mcg Inhaler) 1 puff INHALE RDAILY [facility] Last Admin: 01/04/23 07:57 Dose: 1 puff Documented By: MAREK Zinc Oxide (Zinc Oxide (Triple Paste) 56.7 Gm Oint) 1 appl TOPICAL 8XD PRN; Protocol PRN Reason: Diaper Rash Labs 01/04/23 06:52 01/04/23 06:52 Labs: Laboratory Results - last 24 hr 01/03/23 01/03/23 01/04/23 16:13 19:44 06:52 MCV 83.9 MCH 25.7 L MCHC 30.6 L RDW 17.1 H Plt Count 106 L D MPV 12.5 H Absolute Nucleated RBC 0.000 Nucleated RBC % (auto) 0.0 Anion Gap 11 L Estim Creat Clear Calc 61.9 Estimated GFR 54 POC Glucose 300 H 313 H Random Glucose 114 Calcium 7.8 L Random Vancomycin C. difficile Tox B Gene 01/04/23 01/04/23 01/04/23 07:07 11:07 11:26 MCV MCH MCHC RDW Plt Count MPV Absolute Nucleated RBC Nucleated RBC % (auto) Anion Gap Estim Creat Clear Calc Estimated GFR POC Glucose 121 H 245 H Random Glucose Calcium Random Vancomycin C. difficile Tox B Gene NEGATIVE 01/04/23 12:20 MCV MCH MCHC RDW Plt Count MPV Absolute Nucleated RBC Nucleated RBC % (auto) Anion Gap Estim Creat Clear Calc Estimated GFR POC Glucose Random Glucose Calcium Random Vancomycin 19.6 C. difficile Tox B Gene Assessment and Plan (1) COVID: Status: Acute Assessment and Plan: 72yo M with CKD3, HFpEF, CLL, COPD not on home O2, DM2, LATONYA, hx heart block, morbid obesity, HTN, HLD, PVD, and hypothyroidism who was recently admitted here 12/12-12/15/22 for hypoxia due to CHF exacerbation and discharged back to [facility] for STR completed 2 wk of IV meropenem for ESBL UTI and 4 wk of IV vancomycin for MRSA bacteremia/UTI sent in with dyspnea and found to have Covid-19 infection with hypoxia acute hypoxic resp failure due to Covid-19 infection wean O2 as tolerated, on remdesivir 12/31-01/04, on dexamethasone 12/31-01/09 [on prednisone 6 mg/d for CLL] Not on home oxygen, wean O2 as tolerated, continue supportive care, cough medication Diarrhea likely due to recent antibiotic use C diff negative will use Imodium as needed Oral thrush continue Diflucan UTI with recent ESBL UTI and MRSA UTI/bacteremia cellulitis of sacrum with stage II decubitus ulcers, resolved, status post IV vanco and IV Zosyn time 4 days, antibiotic discontinued blood cultures x2 negative, urine culture grew Oly greater than 100,000 on protein shakes, continue frequent position change. Urine culture grew Oly case discussed with ID she recommend 10 days of Diflucan hyperK - resolved Hypokalemia likely due to diuretics will replace and follow labs anemia of chronic disease - H+H around baseline , follow H&H CKD3 - SCr around baseline. CLL - conitnue acalabrutinib, resume 6 mg/d prednisone after done with dexamethasone COPD, not in acute exac - continue home controller inhalers- Breo + Spiriva; prn nebs chronic HFpEF - continue bumetanide dose reduced to 1 mg by mouth b.i.d. HTN - hold amlodipine follow BP DM2 low blood sugars in morning her otherwise elevated blood sugars, reduce dose of Lantus at bedtime, will increase dose of insulin sliding scale and sitagliptin mood disorder - continue escitalopram, lorazepam, hydroxyzine, chlordiazepoxide HLD - continue statin morbid obesity - diet/exercise counseling hypothyroidism - continue LT4 VTE ppx - LMWH dispo - STR bed hold In my clinical judgment, the patient requires continued inpatient hospitalization for the following reasons: hypoxia due to Covid-19 and treatment for extensive Decub ulcer, diarrhea and hypokalemia Time Spent With Patient Time: Total time managing care of this patient today ____ minutes. Quality Stroke Does the patient have a stroke diagnosis?: No VTE Prior VTE?: No VTE Risk Level:: Medical - moderate - high VTE Device Contraindication: Treatment Not Indicated VTE Drug Contraindication: N/A - Med Ordered
[2023-01-04 16:04] LABS: Glucose, Whole Blood 307 mg/dL (60-115)
[2023-01-04] MEDS: Remdesivir 100 MG in 0.9 % Sodium Chloride 230 ML 115 MG IV (16:21)
[2023-01-04] MEDS: Bumetanide 1 MG TABLET PO (16:26)
[2023-01-04 20:51] LABS: Glucose, Whole Blood 402 mg/dL (60-115)
[2023-01-04] MEDS: Melatonin 3 MG TABLET 6 MG PO (22:18)
[2023-01-04] MEDS: chlordiazePOXIDE HCl 5 MG CAPSULE 10 MG PO (22:19)
[2023-01-04] MEDS: Atorvastatin Calcium 10 MG TABLET PO (22:19)
[2023-01-04] MEDS: Latanoprost 0.005 % Ophth Sol 2.5 ML DROPS 1 DROP EYE-BOTH (22:19)
[2023-01-05] VITALS (10 sets, daily range): BP systolic 130–176; BP diastolic 57–67; PULSE 69–81; RESP 17–22; TEMP 36.1–37.2; O2SAT 95–100
[2023-01-05] MEDS: Levothyroxine Sodium 175 MCG TABLET PO (05:19)
[2023-01-05 06:30] LABS: Anion Gap 14 (12-20); Blood Urea Nitrogen 43 mg/dL (9-16); Calcium 8.2 mg/dL (8.4-10.2); Carbon Dioxide 26 mmol/L (22-29); Chloride 103 mmol/L (96-108); Creatinine Clr Calc Pharmacy 50.8; Estimated Glomerular Filt Rate 43; Glucose Random 90 mg/dL (60-115); Potassium 3.9 mmol/L (3.3-5.1); Sodium 139 mmol/L (135-145)
[2023-01-05 06:55] LABS: Hematocrit 30.1 % (37.0-47.0); Hemoglobin 8.8 g/dl (12.0-16.0); Mean Corpuscular HGB Conc 29.2 g/dl (31.0-35.0); Mean Corpuscular Hemoglobin 24.6 pg (27.0-33.0); Mean Corpuscular Volume 84.1 fL (80.0-98.0); Mean Platelet Volume 13.4 fL (9.4-12.3); Platelet Count 106 X10*3/uL (160-400); Red Blood Count 3.58 X10*6/uL (4.20-5.50); White Blood Count 26.7 X10*3/uL (4.8-10.8)
[2023-01-05 07:39] LABS: Glucose, Whole Blood 69 mg/dL (60-115)
[2023-01-05] MEDS: Fluticasone/Vilanterol 200/25 BLST.W.DEV 1 PUFF INHALE (07:40)
[2023-01-05] MEDS: levalbuterol HCL 1.25 MG/3 ML VIAL.NEB INHALE ×3 (07:41→16:03)
[2023-01-05 08:06] LABS: Glucose, Whole Blood 65 mg/dL (60-115)
[2023-01-05] MEDS: Magnesium Oxide 400 MG TABLET 200 MG PO (08:27)
[2023-01-05] MEDS: hydrOXYzine HCL 25 MG TABLET PO (08:27)
[2023-01-05] MEDS: Escitalopram Oxalate 10 MG TABLET PO (08:27)
[2023-01-05] MEDS: guaiFENesin LA 600 MG TAB.ER.12H PO ×2 (08:28→22:21)
[2023-01-05] MEDS: Hydroxychloroquine Sulfate 200 MG TABLET PO ×2 (08:28→22:21)
[2023-01-05] MEDS: guaiFENesin DM 100/10/5 ML 5 ML SYRUP 10 ML PO ×4 (08:28→22:19)
[2023-01-05] MEDS: Bumetanide 1 MG TABLET PO ×2 (08:28→16:38)
[2023-01-05] MEDS: LORazepam 0.5 MG TABLET PO ×2 (08:28→22:20)
[2023-01-05] MEDS: Fluconazole 100 MG TABLET PO (08:28)
[2023-01-05] MEDS: SITagliptin Phosphate 100 MG TABLET PO (08:28)
[2023-01-05] MEDS: Heparin Sodium,Porcine Flush 50 UNITS, 0.9 % Sodium Chloride Flush 5 ML IVFLUSH (08:29)
[2023-01-05] MEDS: dexAMETHasone sod phosphate 4 MG/ML VIAL 6 MG IVPUSH (08:30)
[2023-01-05] MEDS: Artificial Tears 15 ML DROPS 1 DROP EYE-BOTH (08:30)
[2023-01-05] MEDS: timoloL maleate 0.5 % Oph Sol 5 ML DRBTL 1 DROP EYE-RIGHT (08:30)
[2023-01-05] MEDS: prednisoLONE Acetate 1 % Oph Susp 5 ML DRPBTL 1 DROP EYE-RIGHT (08:30)
[2023-01-05] MEDS: 0.9 % Sodium Chloride Flush 3 ML SYRINGE IVFLUSH ×3 (08:30→22:21)
[2023-01-05] MEDS: Nystatin Powder 15 GM BOTTLE 1 APPL TOPICAL ×2 (09:03→22:22)
[2023-01-05 10:59] LABS: Glucose, Whole Blood 107 mg/dL (60-115)
--- NOTE | 2023-01-05 11:16 | PC.NURSE ---
Pt had morning POC of 69. Pt reporting shakiness, but is AOx4. notified; insulin lispro and insulin lantus held. Pt given orange juice. POC rechecked with result of 107.
[2023-01-05 11:18] LABS: Glucose, Whole Blood 239 mg/dL (60-115)
--- NOTE | 2023-01-05 12:06 | MHC.CM.PN ---
EMR REVIEWED. PER MD ROUNDS PT NOT MEDICALLY CLEARED FOR DC AT THIS TIME. PLAN REMAINS RETURN TO SNF, BED HOLD AT [facility]. UPDATES SENT TO FACILITY 01/04. CM WILL CONTINUE TO FOLLOW.
[2023-01-05] MEDS: guaiFEN/Codeine SF 200/20/10ML 10 ML LIQUID 5 ML PO (13:20)
[2023-01-05] MEDS: Loperamide HCl 2 MG CAPSULE 4 MG PO (13:20)
[2023-01-05] MEDS: Insulin Lispro 100 UNIT/ML 3 ML VIAL SUBCUT ×3 (13:21→22:22)
--- NOTE | 2023-01-05 13:35 | P.PNIM_ITS ---
Subjective Subjective Date of Service: 01/05/23 Interval History: Complaining of persistent loose stools and abdominal cramp denies shortness of breath, no chest pain, no headache, no difficulty swallowing, tolerating diet, no nausea, no vomiting, oxygenation remains stable on 2 L. noted to have low blood sugars this morning, eating less due to diarrhea. Review of Systems All other system reviewed and negative. Physical Exam 2 Vital Signs: Vital Signs: Last Vital Signs Temp 97.8 F 01/05/23 11:35 Pulse 78 01/05/23 11:37 Resp 18 01/05/23 11:37 BP 134/60 01/05/23 11:35 Pulse Ox 100 01/05/23 11:35 O2 Del Method Nasal Cannula 01/05/23 11:35 O2 Flow Rate 2 01/05/23 11:35 Oxygen Flow Rate 5 12/31/22 11:48 BMI result Body Mass Index 44.3 Const: Other: Gen: Awake alert, in no acute distress HEENT: sclera an icteric, moist mucus membranes, thrush on tongue and cheeks Neck: supple Lungs: coarse bs, no wheeze, no crackles Heart: regular rate and rhythm, no murmurs Abd: soft, non-tender, non-distended, bowel sounds audible, no guarding, no rigidity Ext: no edema Skin: warm/well-perfused, R subclavian tunneled catheter, see admission picture for decub ulcer, chronic lower extremity discoloration Neuro: alert and oriented x3, no focal findings Psych: appropriate affect Objective Data Active Medications Acetaminophen (Acetaminophen 325 Mg Tablet) 650 mg PO Q6H PRN PRN Reason: Pain, Mild (Pain Scale 1-3) Acetaminophen/Butalbital/Caffeine (Butalb/Acetamin/Caff 50/325/40 Tablet) 1 tab PO Q6H PRN PRN Reason: Headache Albuterol Sulfate (Albuterol Sulfate (0.042%) 1.25 Mg/3 Ml Vial.Neb) 0.63 mg INHALE Q2H PRN PRN Reason: Shortness Of Breath Or Wheezing Artificial Tears (Artificial Tears 15 Ml Drops) 1 drop EYE-BOTH BID [facility] Last Admin: 01/05/23 08:30 Dose: 1 drop Documented By: BRYN Atorvastatin Calcium (Atorvastatin Calcium 10 Mg Tablet) 10 mg PO BEDTIME [facility] Last Admin: 01/04/23 22:19 Dose: 10 mg Documented By: ASMITA Benzocaine (Throat Lozenge, Medicated Lozenge) 1 lozenge MUCOUS MEM Q2H PRN PRN Reason: Sore Throat Last Admin: 01/02/23 13:14 Dose: 1 lozenge Documented By: MARY GRACE Bisacodyl (Bisacodyl 10 Mg Supp.Rect) 10 mg [place] DAILY PRN PRN Reason: Constipation Bumetanide (Bumetanide 1 Mg Tablet) 1 mg PO BID@0800,1700 [facility]; Protocol Last Admin: 01/05/23 08:28 Dose: 1 mg Documented By: BRYN Chlordiazepoxide HCl (Chlordiazepoxide Hcl 5 Mg Capsule) 10 mg PO BEDTIME [facility] Last Admin: 01/04/23 22:19 Dose: 10 mg Documented By: ASMITA Heparin Sodium (Porcine) 50 (units/ Sodium Chloride 5 ml) 0 units IVFLUSH DAILY [facility] Last Admin: 01/05/23 08:29 Dose: 50 unit Documented By: BRYN Dexamethasone Sodium Phosphate (Dexamethasone Sod Phosphate 4 Mg/Ml Vial) 6 mg IVPUSH DAILY [facility] Stop: 01/10/23 15:24 Last Admin: 01/05/23 08:30 Dose: 6 mg Documented By: BRYN Dextrose (Dextrose 50 % 25 Gm/50 Ml Syringe) 25 gm IVPUSH Q15M PRN; Protocol PRN Reason: per Hypoglycemia Standing Ord. Docusate Sodium (Docusate Sodium 100 Mg Capsule) 100 mg PO DAILY PRN PRN Reason: Constipation Enoxaparin Sodium (Enoxaparin Sodium 40 Mg/0.4 Ml Syringe) 40 mg SUBCUT Q24H [facility] Last Admin: 01/04/23 15:16 Dose: 40 mg Documented By: ROHITH Escitalopram Oxalate (Escitalopram Oxalate 10 Mg Tablet) 10 mg PO DAILY [facility] Last Admin: 01/05/23 08:27 Dose: 10 mg Documented By: BRYN Fluconazole (Fluconazole 100 Mg Tablet) 100 mg PO DAILY [facility] Stop: 01/12/23 09:01 Last Admin: 01/05/23 08:28 Dose: 100 mg Documented By: BRYN Fluticasone/Vilanterol (Fluticasone/Vilanterol 200/25 Blst.W.Dev) 1 puff INHALE RDAILY [facility] Last Admin: 01/05/23 07:40 Dose: 1 puff Documented By: MAREK Glucose (Glucose Gel 15 Gm Gel..Gram.) 15 gm PO Q15M PRN; Protocol PRN Reason: per Hypoglycemia Standing Ord. Guaifenesin (Guaifenesin La 600 Mg Tab.Er.12h) 600 mg PO BID [facility] Last Admin: 01/05/23 08:28 Dose: 600 mg Documented By: BRYN Guaifenesin/Dextromethorphan (Guaifenesin Dm 100/10/5 Ml 5 Ml Syrup) 10 ml PO QID [facility] Last Admin: 01/05/23 13:20 Dose: 10 ml Documented By: BRYN Hydroxychloroquine Sulfate (Hydroxychloroquine Sulfate 200 Mg Tablet) 200 mg PO BID [facility] Last Admin: 01/05/23 08:28 Dose: 200 mg Documented By: BRYN Hydroxyzine HCl (Hydroxyzine Hcl 25 Mg Tablet) 25 mg PO DAILY [facility] Last Admin: 01/05/23 08:27 Dose: 25 mg Documented By: BRYN Insulin Glargine (Insulin Glargine,Hum.Rec.Anlog 100 Unit/Ml 10 Ml Vial) 16 unit SUBCUT DAILY [facility] Last Admin: 01/05/23 08:31 Dose: Not Given Documented By: BRYN Non-Admin Reason: LOW SUGAR Insulin Human Lispro (Insulin Lispro 100 Unit/Ml 3 Ml Vial) 0 unit SUBCUT QIDACHS [facility]; Protocol Last Admin: 01/05/23 13:21 Dose: 10 unit Documented By: BRYN Latanoprost (Latanoprost 0.005 % Ophth Mona 2.5 Ml Drops) 1 drop EYE-BOTH BEDTIME [facility] Last Admin: 01/04/23 22:19 Dose: 1 drop Documented By: ASMITA Levalbuterol HCl (Levalbuterol Hcl 1.25 Mg/3 Ml Vial.Neb) 1.25 mg INHALE RQID [facility] Last Admin: 01/05/23 11:36 Dose: 1.25 mg Documented By: MAREK Levothyroxine Sodium (Levothyroxine Sodium 175 Mcg Tablet) 175 mcg PO DAILY@0600 [facility] Last Admin: 01/05/23 05:19 Dose: 175 mcg Documented By: ASMITA Lidocaine/Diphenhydr/Alum/Mg/Simeth (Mag&Al/Sim/Diphenhyd/Lidocaine 10 Ml Oral.Susp) 10 ml PO Q4H PRN; Protocol PRN Reason: Mouth Sore Pain Last Admin: 01/04/23 13:13 Dose: 10 ml Documented By: ROHITH(2) Loperamide HCl (Loperamide Hcl 2 Mg Capsule) 2 mg PO Q6H PRN PRN Reason: Diarrhea Last Admin: 01/04/23 11:13 Dose: 2 mg Documented By: ROHITH(2) Lorazepam (Lorazepam 0.5 Mg Tablet) 0.5 mg PO BID [facility] Last Admin: 01/05/23 08:28 Dose: 0.5 mg Documented By: BRYN Magnesium Oxide (Magnesium Oxide 400 Mg Tablet) 200 mg PO DAILY [facility] Last Admin: 01/05/23 08:27 Dose: 200 mg Documented By: BRYN Melatonin (Melatonin 3 Mg Tablet) 6 mg PO BEDTIME [facility] Last Admin: 01/04/23 22:18 Dose: 6 mg Documented By: ASMITA Pt Own Med Medication ( Acalabrutinib Maleate [Calquence ( Acalabrutinib Mal)] 100 Mg Tab 100 mg PO Q12H [facility] Last Admin: 01/05/23 08:30 Dose: 100 mg Documented By: BRYN Nystatin (Nystatin Powder 15 Gm Bottle) 1 appl TOPICAL BID [facility]; Protocol Last Admin: 01/05/23 09:03 Dose: 1 appl Documented By: BRYN Ondansetron HCl (Ondansetron Hcl 4 Mg/2 Ml Vial) 4 mg IVPUSH Q8H PRN PRN Reason: Nausea and Vomiting Pharmacy Consult (Consult Rx Vancomycin Dosing) 1 each MISCELLANE DAILY PRN PRN Reason: Consult order Prednisolone Acetate (Prednisolone Acetate 1 % Oph Susp 5 Ml Drpbtl) 1 drop EYE-RIGHT DAILY [facility] Last Admin: 01/05/23 08:30 Dose: 1 drop Documented By: BRYN Senna (Sennosides 8.6 Mg Tablet) 17.2 mg PO DAILY PRN PRN Reason: Constipation Sitagliptin Phosphate (Sitagliptin Phosphate 100 Mg Tablet) 100 mg PO DAILY [facility] Last Admin: 01/05/23 08:28 Dose: 100 mg Documented By: BRYN Sodium Biphosphate/Sodium Phosphate (Sodium Phosphate,[place]-Dibasic 133 Ml Enema) 118 ml [place] BEDTIME PRN PRN Reason: Constipation Sodium Chloride (0.9 % Sodium Chloride Flush 3 Ml Syringe) 3 ml IVFLUSH QSHIFT [facility] Last Admin: 01/05/23 08:30 Dose: 3 ml Documented By: BRYN Timolol Maleate (Timolol Maleate 0.5 % Oph Mona 5 Ml Drbtl) 1 drop EYE-RIGHT BID [facility] Last Admin: 01/05/23 08:30 Dose: 1 drop Documented By: BRYN Tiotropium Michael (Tiotropium Michael 2.5 Mcg Inhaler) 1 puff INHALE RDAILY [facility] Last Admin: 01/05/23 07:40 Dose: 1 puff Documented By: MAREK Zinc Oxide (Zinc Oxide (Triple Paste) 56.7 Gm Oint) 1 appl TOPICAL 8XD PRN; Protocol PRN Reason: Diaper Rash Labs 01/05/23 05:58 01/05/23 05:58 Labs: Laboratory Results - last 24 hr 01/04/23 01/04/23 01/04/23 11:26 16:01 20:48 MCV MCH MCHC RDW Plt Count MPV Absolute Nucleated RBC Nucleated RBC % (auto) Anion Gap Estim Creat Clear Calc Estimated GFR POC Glucose 307 H 402 H* Random Glucose Calcium C. difficile Tox B Gene NEGATIVE 01/05/23 01/05/23 01/05/23 05:58 07:30 08:01 MCV 84.1 MCH 24.6 L MCHC 29.2 L RDW 17.0 H Plt Count 106 L MPV 13.4 H Absolute Nucleated RBC 0.000 Nucleated RBC % (auto) 0.0 Anion Gap 14 Estim Creat Clear Calc 50.8 Estimated GFR 43 POC Glucose 69 65 Random Glucose 90 Calcium 8.2 L C. difficile Tox B Gene 01/05/23 01/05/23 09:06 11:13 MCV MCH MCHC RDW Plt Count MPV Absolute Nucleated RBC Nucleated RBC % (auto) Anion Gap Estim Creat Clear Calc Estimated GFR POC Glucose 107 239 H Random Glucose Calcium C. difficile Tox B Gene Assessment and Plan (1) COVID: Status: Acute Assessment and Plan: 72yo M with CKD3, HFpEF, CLL, COPD not on home O2, DM2, LATONYA, hx heart block, morbid obesity, HTN, HLD, PVD, and hypothyroidism who was recently admitted here 12/12-12/15/22 for hypoxia due to CHF exacerbation and discharged back to [facility] for STR completed 2 wk of IV meropenem for ESBL UTI and 4 wk of IV vancomycin for MRSA bacteremia/UTI sent in with dyspnea and found to have Covid-19 infection with hypoxia acute hypoxic resp failure due to Covid-19 infection wean O2 as tolerated, s/p remdesivir 12/31-01/04, on dexamethasone 12/31-01/09 [on prednisone 6 mg/d for CLL] Not on home oxygen, wean O2 as tolerated, continue supportive care,on scheduled cough medication, will add as needed due to persistent cough Diarrhea likely due to recent antibiotic use, due to COVID and remdesivir, C diff negative ,on Imodium as needed. Oral thrush continue Diflucan 100 mg by mouth daily cellulitis of sacrum with stage II decubitus ulcers, resolved, status post IV vanco and IV Zosyn time 4 days, antibiotic discontinued blood cultures x2 negative on protein shakes, continue frequent position change. Chronic leukocytosis likely due to steroids acute Oly UTI urine culture grew Oly greater than 100,000 case discussed with ID she recommend 10 days of Diflucan hyperK - resolved Hypokalemia likely due to diuretics repleted anemia of chronic disease - H+H around baseline , follow H&H CKD3 - SCr around baseline. CLL - conitnue acalabrutinib, resume 6 mg/d prednisone after done with dexamethasone COPD, not in acute exac - continue home controller inhalers- Breo + Spiriva; prn nebs chronic HFpEF - continue bumetanide 1 mg by mouth b.i.d. HTN - hold amlodipine follow BP DM2 low blood sugars in morning her otherwise elevated blood sugars, reduce dose of Lantus at bedtime, will increase dose of insulin sliding scale and sitagliptin mood disorder - continue escitalopram, lorazepam, hydroxyzine, chlordiazepoxide HLD - continue statin morbid obesity - diet/exercise counseling hypothyroidism - continue LT4 VTE ppx - LMWH dispo - STR bed hold In my clinical judgment, the patient requires continued inpatient hospitalization for the following reasons: hypoxia due to Covid-19 and treatment for extensive Decub ulcer, diarrhea and hypokalemia Time Spent With Patient Time: Total time managing care of this patient today ____ minutes. Quality Stroke Does the patient have a stroke diagnosis?: No VTE Prior VTE?: No VTE Risk Level:: Medical - moderate - high VTE Device Contraindication: Treatment Not Indicated VTE Drug Contraindication: N/A - Med Ordered
[2023-01-05 16:16] LABS: Glucose, Whole Blood 387 mg/dL (60-115)
--- NOTE | 2023-01-05 16:31 | P.PNID_ITS ---
Subjective Subjective Date of Service: 01/05/23 Critical Care Time (minutes): 15 Comment: she has no oxygen requirement (99-100 percent) Objective Data Labs 01/05/23 05:58 01/05/23 05:58 Labs: Laboratory Results - last 24 hr 01/04/23 01/05/23 01/05/23 20:48 05:58 07:30 WBC 26.7 H RBC 3.58 L Hgb 8.8 L Hct 30.1 L MCV 84.1 MCH 24.6 L MCHC 29.2 L RDW 17.0 H Plt Count 106 L MPV 13.4 H Absolute Nucleated RBC 0.000 Nucleated RBC % (auto) 0.0 Sodium 139 Potassium 3.9 D Chloride 103 Carbon Dioxide 26 Anion Gap 14 BUN 43 H Creatinine 1.23 Estim Creat Clear Calc 50.8 Estimated GFR 43 POC Glucose 402 H* 69 Random Glucose 90 Calcium 8.2 L 01/05/23 01/05/23 01/05/23 08:01 09:06 11:13 WBC RBC Hgb Hct MCV MCH MCHC RDW Plt Count MPV Absolute Nucleated RBC Nucleated RBC % (auto) Sodium Potassium Chloride Carbon Dioxide Anion Gap BUN Creatinine Estim Creat Clear Calc Estimated GFR POC Glucose 65 107 239 H Random Glucose Calcium 01/05/23 16:11 WBC RBC Hgb Hct MCV MCH MCHC RDW Plt Count MPV Absolute Nucleated RBC Nucleated RBC % (auto) Sodium Potassium Chloride Carbon Dioxide Anion Gap BUN Creatinine Estim Creat Clear Calc Estimated GFR POC Glucose 387 H* Random Glucose Calcium Microbiology Microbiology Results: Microbiology 12/31/22 14:10 Blood - Venous Blood Culture - Final No growth after 5 days. 12/31/22 12:35 Blood - Venous Blood Culture - Final No growth after 5 days. Physical Exam 2 Vital Signs: Vital Signs: Last Vital Signs Temp 97.2 F 01/05/23 15:07 Pulse 77 01/05/23 16:04 Resp 18 01/05/23 16:04 BP 135/57 L 01/05/23 15:07 Pulse Ox 99 01/05/23 15:07 O2 Del Method Nasal Cannula 01/05/23 15:07 O2 Flow Rate 2 01/05/23 11:35 Oxygen Flow Rate 5 12/31/22 11:48 BMI result Body Mass Index 44.3 Const: General: cooperative HEENT: Head: Yes normal to inspection Face and sinus: Yes normal facial exam Mouth: Normal oral and palatal mucosa present Teeth and gingiva: d entition normal Eyes: General: appearance normal, both eyes and all related structures P upils: Equal, round and reactive pupils present Resp: Effort & Inspection: normal respiratory effort Cardio: Rate: regular rate Rhythm: regular rhythm GI: Palpation (GI): Soft to palpation and nontender : General: Yes no CVA tenderness Back/Spine/Pelvis: Back: no CVA tenderness Skin: General skin exam: no rashes or lesions noted Neuro: General: moves all extremities Cranial nerves: Yes Equal, round and reactive pupils present Extrem: General: Yes normal to inspection Psych: Appearance: grossly normal Assessment and Plan Assessment and plan (1) COVID: Problem details: She has some diarrhea possible related to Remdesivir but it is off now. She has COVID with COPD exacerbation and can stop Dexamethasone for COVID if not needing oxygen but keep on if using for COPD Status: Acute Time Spent With Patient Time: Total time managing care of this patient today ____ minutes.
[2023-01-05] MEDS: Enoxaparin Sodium 40 MG/0.4 ML SYRINGE SUBCUT (16:38)
[2023-01-05] MEDS: Loperamide HCl 2 MG CAPSULE PO (19:53)
[2023-01-05 20:51] LABS: Glucose, Whole Blood 293 mg/dL (60-115)
[2023-01-05] MEDS: chlordiazePOXIDE HCl 5 MG CAPSULE 10 MG PO (22:20)
[2023-01-05] MEDS: Atorvastatin Calcium 10 MG TABLET PO (22:20)
[2023-01-05] MEDS: Melatonin 3 MG TABLET 6 MG PO (22:20)
[2023-01-05] MEDS: Latanoprost 0.005 % Ophth Sol 2.5 ML DROPS 1 DROP EYE-BOTH (22:23)
[2023-01-06] VITALS (10 sets, daily range): BP systolic 105–138; BP diastolic 58–62; PULSE 65–74; RESP 16–18; TEMP 36–36.2; O2SAT 94–100
[2023-01-06] MEDS: Levothyroxine Sodium 175 MCG TABLET PO (05:51)
[2023-01-06] MEDS: Fluticasone/Vilanterol 200/25 BLST.W.DEV 1 PUFF INHALE (07:12)
[2023-01-06 07:44] LABS: Glucose, Whole Blood 185 mg/dL (60-115)
[2023-01-06 07:48] LABS: Estimated Glomerular Filt Rate 33
[2023-01-06] MEDS: Insulin Lispro 100 UNIT/ML 3 ML VIAL SUBCUT ×3 (08:22→16:43)
[2023-01-06] MEDS: Insulin Glargine,Hum.rec.anlog 100 UNIT/ML 10 ML VIAL 16 UNIT SUBCUT (08:23)
[2023-01-06] MEDS: Heparin Sodium,Porcine Flush 50 UNITS, 0.9 % Sodium Chloride Flush 5 ML IVFLUSH (08:23)
[2023-01-06] MEDS: dexAMETHasone sod phosphate 4 MG/ML VIAL 6 MG IVPUSH (08:23)
[2023-01-06] MEDS: guaiFENesin DM 100/10/5 ML 5 ML SYRUP 10 ML PO ×4 (08:23→20:49)
[2023-01-06] MEDS: Loperamide HCl 2 MG CAPSULE PO (08:24)
[2023-01-06] MEDS: LORazepam 0.5 MG TABLET PO ×2 (08:24→20:49)
[2023-01-06] MEDS: guaiFENesin LA 600 MG TAB.ER.12H PO ×2 (08:24→20:49)
[2023-01-06] MEDS: Magnesium Oxide 400 MG TABLET 200 MG PO (08:24)
[2023-01-06] MEDS: Hydroxychloroquine Sulfate 200 MG TABLET PO (08:24)
[2023-01-06] MEDS: SITagliptin Phosphate 100 MG TABLET PO (08:24)
[2023-01-06] MEDS: Escitalopram Oxalate 10 MG TABLET PO (08:24)
[2023-01-06] MEDS: timoloL maleate 0.5 % Oph Sol 5 ML DRBTL 1 DROP EYE-RIGHT ×2 (08:25→20:48)
[2023-01-06] MEDS: prednisoLONE Acetate 1 % Oph Susp 5 ML DRPBTL 1 DROP EYE-RIGHT (08:25)
[2023-01-06] MEDS: Fluconazole 100 MG TABLET PO (08:25)
[2023-01-06] MEDS: Nystatin Powder 15 GM BOTTLE 1 APPL TOPICAL (08:26)
[2023-01-06] MEDS: Artificial Tears 15 ML DROPS 1 DROP EYE-BOTH ×2 (08:26→20:48)
[2023-01-06] MEDS: Enoxaparin Sodium 40 MG/0.4 ML SYRINGE SUBCUT (16:42)
[2023-01-06] MEDS: Mag&Al/Sim/Diphenhyd/Lidocaine 10 ML ORAL.SUSP PO (16:48)
--- NOTE | 2023-01-06 17:08 | HO.PM.IMPN ---
Subjective Subjective Date of Service: 01/07/23 Interval History: Complaining of persistent diarrhea small loose stools, denies nausea, vomiting, no abdominal pain, no worsening shortness of breath or cough, no other acute issues, eating 100% meals, no fevers, no chills, no acute events overnight. Review of Systems All other system reviewed and negative. Physical Exam Vital Signs: Vital Signs: Last Vital Signs Temp 96.8 F 01/06/23 15:29 Pulse 69 01/06/23 15:34 Resp 16 01/06/23 15:34 BP 125/60 01/06/23 15:29 Pulse Ox 100 01/06/23 15:29 O2 Del Method Nasal Cannula 01/06/23 15: O2 Flow Rate 2.0 01/06/23 15: Oxygen Flow Rate 5 12/31/22 11:48 BMI result Body Mass Index 44.3 Const: Other: Gen: Awake alert, in no acute distress HEENT: sclera an icteric, moist mucus membranes, thrush on tongue and cheeks Neck: supple Lungs: coarse bs, no wheeze, no crackles Heart: regular rate and rhythm, no murmurs Abd: soft, non-tender, non-distended, bowel sounds audible, no guarding, no rigidity Ext: no edema Skin: warm/well-perfused, R subclavian tunneled catheter, see admission picture for decub ulcer, chronic lower extremity discoloration Neuro: alert and oriented x3, no focal findings Psych: appropriate affect Objective Data Active Medications Acetaminophen (Acetaminophen 325 Mg Tablet) 650 mg PO Q6H PRN PRN Reason: Pain, Mild (Pain Scale 1-3) Acetaminophen/Butalbital/Caffeine (Butalb/Acetamin/Caff 50/325/40 Tablet) 1 tab PO Q6H PRN PRN Reason: Headache Albuterol Sulfate (Albuterol Sulfate (0.042%) 1.25 Mg/3 Ml Vial.Neb) 0.63 mg INHALE Q2H PRN PRN Reason: Shortness Of Breath Or Wheezing Artificial Tears (Artificial Tears 15 Ml Drops) 1 drop EYE-BOTH BID [facility] Last Admin: 01/06/23 08:26 Dose: 1 drop Documented By: ESVIN Atorvastatin Calcium (Atorvastatin Calcium 10 Mg Tablet) 10 mg PO BEDTIME [facility] Last Admin: 01/05/23 22:20 Dose: 10 mg Documented By: ASMITA Benzocaine (Throat Lozenge, Medicated Lozenge) 1 lozenge MUCOUS MEM Q2H PRN PRN Reason: Sore Throat Last Admin: 01/02/23 13:14 Dose: 1 lozenge Documented By: MARY GRACE Bisacodyl (Bisacodyl 10 Mg Supp.Rect) 10 mg WA DAILY PRN PRN Reason: Constipation Bumetanide (Bumetanide 1 Mg Tablet) 1 mg PO BID@0800,1700 [facility]; Protocol Last Admin: 01/06/23 08:39 Dose: Not Given Documented By: ESVIN Non-Admin Reason: medication held Chlordiazepoxide HCl (Chlordiazepoxide Hcl 5 Mg Capsule) 10 mg PO BEDTIME [facility] Last Admin: 01/05/23 22:20 Dose: 10 mg Documented By: ASMITA Heparin Sodium (Porcine) 50 (units/ Sodium Chloride 5 ml) 0 units IVFLUSH DAILY [facility] Last Admin: 01/06/23 08:23 Dose: 50 unit Documented By: ESVIN Dexamethasone Sodium Phosphate (Dexamethasone Sod Phosphate 4 Mg/Ml Vial) 6 mg IVPUSH DAILY [facility] Stop: 01/10/23 15:24 Last Admin: 01/06/23 08:23 Dose: 6 mg Documented By: ESVIN Dextrose (Dextrose 50 % 25 Gm/50 Ml Syringe) 25 gm IVPUSH Q15M PRN; Protocol PRN Reason: per Hypoglycemia Standing Ord. Docusate Sodium (Docusate Sodium 100 Mg Capsule) 100 mg PO DAILY PRN PRN Reason: Constipation Enoxaparin Sodium (Enoxaparin Sodium 40 Mg/0.4 Ml Syringe) 40 mg SUBCUT Q24H [facility] Last Admin: 01/06/23 16:42 Dose: 40 mg Documented By: ESVIN Escitalopram Oxalate (Escitalopram Oxalate 10 Mg Tablet) 10 mg PO DAILY [facility] Last Admin: 01/06/23 08:24 Dose: 10 mg Documented By: ESVIN Fluconazole (Fluconazole 100 Mg Tablet) 100 mg PO DAILY [facility] Stop: 01/12/23 09:01 Last Admin: 01/06/23 08:25 Dose: 100 mg Documented By: ESVIN Fluticasone/Vilanterol (Fluticasone/Vilanterol 200/25 Blst.W.Dev) 1 puff INHALE RDAILY [facility] Last Admin: 01/06/23 07:12 Dose: 1 puff Documented By: LUIS Glucose (Glucose Gel 15 Gm Gel..Gram.) 15 gm PO Q15M PRN; Protocol PRN Reason: per Hypoglycemia Standing Ord. Guaifenesin (Guaifenesin La 600 Mg Tab.Er.12h) 600 mg PO BID [facility] Last Admin: 01/06/23 08:24 Dose: 600 mg Documented By: ESVIN Guaifenesin/Dextromethorphan (Guaifenesin Dm 100/10/5 Ml 5 Ml Syrup) 10 ml PO QID [facility] Last Admin: 01/06/23 16:42 Dose: 10 ml Documented By: ESVIN Hydroxychloroquine Sulfate (Hydroxychloroquine Sulfate 200 Mg Tablet) 200 mg PO BID [facility] Last Admin: 01/06/23 08:24 Dose: 200 mg Documented By: ESVIN Hydroxyzine HCl (Hydroxyzine Hcl 25 Mg Tablet) 25 mg PO DAILY [facility] Last Admin: 01/06/23 08:24 Dose: 25 mg Documented By: ESVIN Insulin Glargine (Insulin Glargine,Hum.Rec.Anlog 100 Unit/Ml 10 Ml Vial) 16 unit SUBCUT DAILY [facility] Last Admin: 01/06/23 08:23 Dose: 16 unit Documented By: ESVIN Insulin Human Lispro (Insulin Lispro 100 Unit/Ml 3 Ml Vial) 0 unit SUBCUT QIDACHS [facility]; Protocol Last Admin: 01/06/23 16:43 Dose: 14 unit Documented By: ESVIN Latanoprost (Latanoprost 0.005 % Ophth Mona 2.5 Ml Drops) 1 drop EYE-BOTH BEDTIME [facility] Last Admin: 01/05/23 22:23 Dose: 1 drop Documented By: ASMITA Levalbuterol HCl (Levalbuterol Hcl 1.25 Mg/3 Ml Vial.Neb) 1.25 mg INHALE RQID [facility] Last Admin: 01/06/23 15:34 Dose: 1.25 mg Documented By: LUIS Levothyroxine Sodium (Levothyroxine Sodium 175 Mcg Tablet) 175 mcg PO DAILY@0600 [facility] Last Admin: 01/06/23 05:51 Dose: 175 mcg Documented By: ASMITA Lidocaine/Diphenhydr/Alum/Mg/Simeth (Mag&Al/Sim/Diphenhyd/Lidocaine 10 Ml Oral.Susp) 10 ml PO Q4H PRN; Protocol PRN Reason: Mouth Sore Pain Last Admin: 01/06/23 16:48 Dose: 10 ml Documented By: ESVIN Loperamide HCl (Loperamide Hcl 2 Mg Capsule) 2 mg PO Q6H PRN PRN Reason: Diarrhea Last Admin: 01/06/23 08:24 Dose: 2 mg Documented By: ESVIN Lorazepam (Lorazepam 0.5 Mg Tablet) 0.5 mg PO BID [facility] Last Admin: 01/06/23 08:24 Dose: 0.5 mg Documented By: ESVIN Magnesium Oxide (Magnesium Oxide 400 Mg Tablet) 200 mg PO DAILY [facility] Last Admin: 01/06/23 08:24 Dose: 200 mg Documented By: ESVIN Melatonin (Melatonin 3 Mg Tablet) 6 mg PO BEDTIME [facility] Last Admin: 01/05/23 22:20 Dose: 6 mg Documented By: ASMITA Pt Own Med Medication ( Acalabrutinib Maleate [Calquence ( Acalabrutinib Mal)] 100 Mg Tab 100 mg PO Q12H [facility] Last Admin: 01/06/23 08:25 Dose: 100 mg Documented By: ESVIN Nystatin (Nystatin Powder 15 Gm Bottle) 1 appl TOPICAL BID [facility]; Protocol Last Admin: 01/06/23 08:26 Dose: 1 appl Documented By: ESVIN Ondansetron HCl (Ondansetron Hcl 4 Mg/2 Ml Vial) 4 mg IVPUSH Q8H PRN PRN Reason: Nausea and Vomiting Pharmacy Consult (Consult Rx Vancomycin Dosing) 1 each MISCELLANE DAILY PRN PRN Reason: Consult order Prednisolone Acetate (Prednisolone Acetate 1 % Oph Susp 5 Ml Drpbtl) 1 drop EYE-RIGHT DAILY [facility] Last Admin: 01/06/23 08:25 Dose: 1 drop Documented By: ESVIN Senna (Sennosides 8.6 Mg Tablet) 17.2 mg PO DAILY PRN PRN Reason: Constipation Sitagliptin Phosphate (Sitagliptin Phosphate 100 Mg Tablet) 100 mg PO DAILY [facility] Last Admin: 01/06/23 08:24 Dose: 100 mg Documented By: ESVIN Sodium Biphosphate/Sodium Phosphate (Sodium Phosphate,[place]-Dibasic 133 Ml Enema) 118 ml WA BEDTIME PRN PRN Reason: Constipation Sodium Chloride (0.9 % Sodium Chloride Flush 3 Ml Syringe) 3 ml IVFLUSH QSHIFT [facility] Last Admin: 01/06/23 16:48 Dose: 3 ml Documented By: ESVIN Timolol Maleate (Timolol Maleate 0.5 % Oph Mona 5 Ml Drbtl) 1 drop EYE-RIGHT BID [facility] Last Admin: 01/06/23 08:25 Dose: 1 drop Documented By: ESVIN Tiotropium Vader (Tiotropium Vader 2.5 Mcg Inhaler) 1 puff INHALE RDAILY [facility] Last Admin: 01/06/23 07:12 Dose: 1 puff Documented By: LUIS Zinc Oxide (Zinc Oxide (Triple Paste) 56.7 Gm Oint) 1 appl TOPICAL 8XD PRN; Protocol PRN Reason: Diaper Rash Labs 01/05/23 05:58 01/07/23 06:52 Labs: Laboratory Results - last 24 hr 01/05/23 01/06/23 01/06/23 20:47 07:20 07:31 Hold Purple Top SEE NOTE Estim Creat Clear Calc 40.0 Estimated GFR 33 POC Glucose 293 H 185 H 01/06/23 01/06/23 11:15 16:08 Hold Purple Top Estim Creat Clear Calc Estimated GFR POC Glucose 260 H 334 H Microbiology Microbiology Results: Microbiology 12/31/22 14:10 Blood Culture - Final Blood - Venous No growth after 5 days. 12/31/22 12:35 Blood Culture - Final Blood - Venous No growth after 5 days. Assessment and Plan (1) COVID: Status: Acute Assessment and Plan: 72yo M with CKD3, HFpEF, CLL, COPD not on home O2, DM2, LATONYA, hx heart block, morbid obesity, HTN, HLD, PVD, and hypothyroidism who was recently admitted here 12/12-12/15/22 for hypoxia due to CHF exacerbation and discharged back to [facility] for STR completed 2 wk of IV meropenem for ESBL UTI and 4 wk of IV vancomycin for MRSA bacteremia/UTI sent in with dyspnea and found to have Covid-19 infection with hypoxia acute hypoxic resp failure due to Covid-19 infection wean O2 as tolerated, s/p remdesivir 12/31-01/04, on dexamethasone 12/31-01/09 [on prednisone 6 mg/d for CLL] Not on home oxygen, wean O2 as tolerated, continue supportive care,on scheduled cough medication, will add as needed due to persistent cough Diarrhea likely due to recent antibiotic use, due to COVID and remdesivir, C diff negative , Persistent loose stools, will increase dose of Imodium. Oral thrush continue Diflucan 100 mg by mouth daily started 01/03 through cellulitis of sacrum with stage II decubitus ulcers, resolved, status post IV vanco and IV Zosyn time 4 days, antibiotic discontinued blood cultures x2 negative on protein shakes, continue frequent position change. Continue pure of a catheter Chronic leukocytosis likely due to steroids acute Oly UTI urine culture grew Oly greater than 100,000 case discussed with ID she recommend 10 days of Diflucan last day 01/12. hyperK - resolved Hypokalemia likely due to diuretics repleted anemia of chronic disease - H+H around baseline , follow H&H CKD3 - SCr around baseline. Creatinine trending up, still around baseline hold Bumex follow labs CLL - conitnue acalabrutinib, resume 6 mg/d prednisone after done with dexamethasone COPD, not in acute exac - continue home controller inhalers- Breo + Spiriva; prn nebs chronic HFpEF - noted to have worsening renal function likely due to diarrhea, therefore Bumex on hold HTN - hold amlodipine follow BP DM2 low blood sugars in morning her otherwise elevated blood sugars, reduce dose of Lantus at bedtime, will increase dose of insulin sliding scale and sitagliptin mood disorder - continue escitalopram, lorazepam, hydroxyzine, chlordiazepoxide HLD - continue statin morbid obesity - diet/exercise counseling hypothyroidism - continue LT4 VTE ppx - LMWH dispo - STR bed hold In my clinical judgment, the patient requires continued inpatient hospitalization for the following reasons: hypoxia due to Covid-19 and treatment for extensive Decub ulcer, diarrhea and hypokalemia Time Spent With Patient Time: Total time managing care of this patient today ____ minutes. Quality Stroke Does the patient have a stroke diagnosis?: No VTE Prior VTE?: No VTE Risk Level:: Medical - moderate - high VTE Device Contraindication: Treatment Not Indicated VTE Drug Contraindication: N/A - Med Ordered
[2023-01-06] MEDS: chlordiazePOXIDE HCl 5 MG CAPSULE 10 MG PO (20:49)
[2023-01-06] MEDS: Atorvastatin Calcium 10 MG TABLET PO (20:50)
[2023-01-07] VITALS (10 sets, daily range): BP systolic 113–137; BP diastolic 57–63; PULSE 64–76; RESP 18–20; TEMP 36–37; O2SAT 98–100
[2023-01-07] MEDS: Levothyroxine Sodium 175 MCG TABLET PO (05:21)
[2023-01-07 07:51] LABS: Anion Gap 15 (12-20); Blood Urea Nitrogen 56 mg/dL (9-16); Calcium 8.2 mg/dL (8.4-10.2); Carbon Dioxide 25 mmol/L (22-29); Chloride 99 mmol/L (96-108); Creatinine Clr Calc Pharmacy 35.1; Estimated Glomerular Filt Rate 28; Glucose Random 250 mg/dL (60-115); Potassium 4.5 mmol/L (3.3-5.1); Sodium 134 mmol/L (135-145)
[2023-01-07] MEDS: timoloL maleate 0.5 % Oph Sol 5 ML DRBTL 1 DROP EYE-RIGHT ×2 (09:06→21:15)
[2023-01-07] MEDS: Artificial Tears 15 ML DROPS 1 DROP EYE-BOTH (09:06)
[2023-01-07] MEDS: Insulin Glargine,Hum.rec.anlog 100 UNIT/ML 10 ML VIAL 16 UNIT SUBCUT (09:07)
[2023-01-07] MEDS: guaiFENesin DM 100/10/5 ML 5 ML SYRUP 10 ML PO ×4 (09:07→20:43)
[2023-01-07] MEDS: prednisoLONE Acetate 1 % Oph Susp 5 ML DRPBTL 1 DROP EYE-RIGHT (09:07)
[2023-01-07] MEDS: guaiFENesin LA 600 MG TAB.ER.12H PO ×2 (09:08→20:45)
[2023-01-07] MEDS: SITagliptin Phosphate 100 MG TABLET PO (09:08)
[2023-01-07] MEDS: LORazepam 0.5 MG TABLET PO ×2 (09:08→20:45)
[2023-01-07] MEDS: Fluconazole 100 MG TABLET PO (09:08)
[2023-01-07] MEDS: Mag&Al/Sim/Diphenhyd/Lidocaine 10 ML ORAL.SUSP PO (09:16)
[2023-01-07] MEDS: Loperamide HCl 2 MG CAPSULE PO (09:16)
[2023-01-07] MEDS: Acetaminophen 325 MG TABLET 650 MG PO (12:40)
--- NOTE | 2023-01-07 13:42 | MHC.CM.PN ---
Cm was contacted by patient case coordinator from [facility] to inform us that Pt is well known to their agency, has had several visits for options counseling, [facility] informed CM that they do not feel Pt can be cared for in the home due to her care needs. Family has informed [facility] that they do not feel that they are able to care for Pt at home. CM will follow and assist with DC plan. Plan is for Pt to return to [facility], where she had been prior to hosp stay for STR.
[2023-01-07] MEDS: Enoxaparin Sodium 40 MG/0.4 ML SYRINGE SUBCUT (15:59)
[2023-01-07] MEDS: Atorvastatin Calcium 10 MG TABLET PO (20:44)
[2023-01-08] VITALS (10 sets, daily range): BP systolic 131–153; BP diastolic 59–67; PULSE 68–89; RESP 16–20; TEMP 35.6–37; O2SAT 93–100
[2023-01-08 07:03] LABS: Anion Gap 17 (12-20); Blood Urea Nitrogen 67 mg/dL (9-16); Calcium 8.3 mg/dL (8.4-10.2); Carbon Dioxide 21 mmol/L (22-29); Chloride 98 mmol/L (96-108); Creatinine Clr Calc Pharmacy 32.9; Estimated Glomerular Filt Rate 26; Glucose Random 336 mg/dL (60-115); Sodium 131 mmol/L (135-145)
[2023-01-08 07:04] LABS: Hematocrit 27.4 % (37.0-47.0); Hemoglobin 8.3 g/dl (12.0-16.0); Mean Corpuscular HGB Conc 30.3 g/dl (31.0-35.0); Mean Corpuscular Hemoglobin 24.9 pg (27.0-33.0); Mean Corpuscular Volume 82.3 fL (80.0-98.0); PLT CLUMP 1; Red Blood Count 3.33 X10*6/uL (4.20-5.50); Red Cell Distribution Width 17.1 % (11.0-16.0)
[2023-01-08 07:05] LABS: White Blood Count 19.8 X10*3/uL (4.8-10.8)
[2023-01-08 07:34] LABS: Platelet Count 122 X10*3/uL (160-400)
[2023-01-08] MEDS: guaiFENesin DM 100/10/5 ML 5 ML SYRUP 10 ML PO ×2 (08:24→15:05)
[2023-01-08] MEDS: Insulin Glargine,Hum.rec.anlog 100 UNIT/ML 10 ML VIAL 16 UNIT SUBCUT (08:25)
[2023-01-08] MEDS: Fluconazole 100 MG TABLET PO (08:26)
[2023-01-08] MEDS: SITagliptin Phosphate 100 MG TABLET PO (08:26)
[2023-01-08] MEDS: guaiFENesin LA 600 MG TAB.ER.12H PO ×2 (08:26→21:46)
[2023-01-08] MEDS: timoloL maleate 0.5 % Oph Sol 5 ML DRBTL 1 DROP EYE-RIGHT ×2 (08:27→21:45)
[2023-01-08] MEDS: Acetaminophen 325 MG TABLET 650 MG PO ×2 (09:00→15:04)
[2023-01-08] MEDS: Enoxaparin Sodium 40 MG/0.4 ML SYRINGE SUBCUT (15:05)
--- NOTE | 2023-01-08 16:38 | HO.PM.IMPN ---
Subjective Subjective Date of Service: 01/08/23 Interval History: no acute issues overnight Review of Systems denies chest pain Denies shortness of breath Denies nausea vomiting diarrhea Denies fever chills Physical Exam Vital Signs: Vital Signs: Last Vital Signs Temp 97.1 F 01/08/23 15:54 Pulse 68 01/08/23 16:35 Resp 16 01/08/23 16:35 BP 131/61 01/08/23 15:54 Pulse Ox 100 01/08/23 15:54 O2 Del Method Nasal Cannula 01/08/23 15:54 O2 Flow Rate 2 01/08/23 15:54 Oxygen Flow Rate 5 12/31/22 11:48 BMI result Body Mass Index 44.3 Const: Other: no acute distress Resp: Other: clear to auscultation bilaterally no rales rhonchi or wheezes Cardio: Other: no S4; positive S1-S2; no S3 murmurs rubs or gallops GI: Other: soft nontender nondistended normoactive bowel soun Extrem: Other: no edema bilaterally Objective Data Active Medications Acetaminophen (Acetaminophen 325 Mg Tablet) 650 mg PO Q6H PRN PRN Reason: Pain, Mild (Pain Scale 1-3) Last Admin: 01/08/23 15:04 Dose: 650 mg Documented By: ESVIN Acetaminophen/Butalbital/Caffeine (Butalb/Acetamin/Caff 50/325/40 Tablet) 1 tab PO Q6H PRN PRN Reason: Headache Albuterol Sulfate (Albuterol Sulfate (0.042%) 1.25 Mg/3 Ml Vial.Neb) 0.63 mg INHALE Q2H PRN PRN Reason: Shortness Of Breath Or Wheezing Artificial Tears (Artificial Tears 15 Ml Drops) 1 drop EYE-BOTH BID [facility] Last Admin: 01/08/23 08:27 Dose: 1 drop Documented By: ESVIN Atorvastatin Calcium (Atorvastatin Calcium 10 Mg Tablet) 10 mg PO BEDTIME [facility] Last Admin: 01/07/23 20:44 Dose: 10 mg Documented By: ELGIN Benzocaine (Throat Lozenge, Medicated Lozenge) 1 lozenge MUCOUS MEM Q2H PRN PRN Reason: Sore Throat Last Admin: 01/02/23 13:14 Dose: 1 lozenge Documented By: MARY GRACE Bisacodyl (Bisacodyl 10 Mg Supp.Rect) 10 mg [place] DAILY PRN PRN Reason: Constipation Chlordiazepoxide HCl (Chlordiazepoxide Hcl 5 Mg Capsule) 10 mg PO BEDTIME [facility] Last Admin: 01/07/23 20:45 Dose: 10 mg Documented By: ELGIN Heparin Sodium (Porcine) 50 (units/ Sodium Chloride 5 ml) 0 units IVFLUSH DAILY [facility] Last Admin: 01/08/23 08:25 Dose: 50 unit Documented By: ESVIN Dexamethasone (Dexamethasone 6 Mg Tablet) 6 mg PO DAILY [facility] Stop: 01/10/23 23:59 Last Admin: 01/08/23 08:25 Dose: 6 mg Documented By: ESVIN Dextrose (Dextrose 50 % 25 Gm/50 Ml Syringe) 25 gm IVPUSH Q15M PRN; Protocol PRN Reason: per Hypoglycemia Standing Ord. Docusate Sodium (Docusate Sodium 100 Mg Capsule) 100 mg PO DAILY PRN PRN Reason: Constipation Enoxaparin Sodium (Enoxaparin Sodium 40 Mg/0.4 Ml Syringe) 40 mg SUBCUT Q24H [facility] Last Admin: 01/08/23 15:05 Dose: 40 mg Documented By: ESVIN Escitalopram Oxalate (Escitalopram Oxalate 10 Mg Tablet) 10 mg PO DAILY [facility] Last Admin: 01/08/23 08:26 Dose: 10 mg Documented By: ESVIN Fluconazole (Fluconazole 100 Mg Tablet) 100 mg PO DAILY [facility] Stop: 01/12/23 09:01 Last Admin: 01/08/23 08:26 Dose: 100 mg Documented By: ESVIN Fluticasone/Vilanterol (Fluticasone/Vilanterol 200/25 Blst.W.Dev) 1 puff INHALE RDAILY [facility] Last Admin: 01/08/23 07:55 Dose: 1 puff Documented By: MAREK Glucose (Glucose Gel 15 Gm Gel..Gram.) 15 gm PO Q15M PRN; Protocol PRN Reason: per Hypoglycemia Standing Ord. Guaifenesin (Guaifenesin La 600 Mg Tab.Er.12h) 600 mg PO BID [facility] Last Admin: 01/08/23 08:26 Dose: 600 mg Documented By: ESVIN Guaifenesin/Dextromethorphan (Guaifenesin Dm 100/10/5 Ml 5 Ml Syrup) 10 ml PO QID [facility] Last Admin: 01/08/23 15:05 Dose: 10 ml Documented By: ESVIN Hydroxychloroquine Sulfate (Hydroxychloroquine Sulfate 200 Mg Tablet) 200 mg PO BID [facility] Last Admin: 01/08/23 08:26 Dose: 200 mg Documented By: ESVIN Hydroxyzine HCl (Hydroxyzine Hcl 25 Mg Tablet) 25 mg PO DAILY [facility] Last Admin: 01/08/23 08:25 Dose: 25 mg Documented By: ESVIN Insulin Glargine (Insulin Glargine,Hum.Rec.Anlog 100 Unit/Ml 10 Ml Vial) 16 unit SUBCUT DAILY [facility] Last Admin: 01/08/23 08:25 Dose: 16 unit Documented By: ESVIN Insulin Human Lispro (Insulin Lispro 100 Unit/Ml 3 Ml Vial) 0 unit SUBCUT QIDACHS [facility]; Protocol Last Admin: 01/08/23 11:39 Dose: 12 unit Documented By: ESVIN Latanoprost (Latanoprost 0.005 % Ophth Mona 2.5 Ml Drops) 1 drop EYE-BOTH BEDTIME [facility] Last Admin: 01/07/23 21:02 Dose: 1 drop Documented By: ELGIN Levalbuterol HCl (Levalbuterol Hcl 1.25 Mg/3 Ml Vial.Neb) 1.25 mg INHALE RQID [facility] Last Admin: 01/08/23 16:35 Dose: 1.25 mg Documented By: MAREK Levothyroxine Sodium (Levothyroxine Sodium 175 Mcg Tablet) 175 mcg PO DAILY@0600 [facility] Last Admin: 01/08/23 05:30 Dose: 175 mcg Documented By: ELGIN Lidocaine/Diphenhydr/Alum/Mg/Simeth (Mag&Al/Sim/Diphenhyd/Lidocaine 10 Ml Oral.Susp) 10 ml PO Q4H PRN; Protocol PRN Reason: Mouth Sore Pain Last Admin: 01/07/23 09:16 Dose: 10 ml Documented By: ESVIN Loperamide HCl (Loperamide Hcl 2 Mg Capsule) 4 mg PO Q4H PRN PRN Reason: Diarrhea Lorazepam (Lorazepam 0.5 Mg Tablet) 0.5 mg PO BID [facility] Last Admin: 01/08/23 08:26 Dose: 0.5 mg Documented By: ESVIN Magnesium Oxide (Magnesium Oxide 400 Mg Tablet) 200 mg PO DAILY [facility] Last Admin: 01/08/23 08:25 Dose: 200 mg Documented By: ESVIN Melatonin (Melatonin 3 Mg Tablet) 6 mg PO BEDTIME [facility] Last Admin: 01/07/23 20:44 Dose: 6 mg Documented By: ELGIN Pt Own Med Medication ( Acalabrutinib Maleate [Calquence ( Acalabrutinib Mal)] 100 Mg Tab 100 mg PO Q12H [facility] Last Admin: 01/08/23 08:24 Dose: 100 mg Documented By: ESVIN Nystatin (Nystatin Powder 15 Gm Bottle) 1 appl TOPICAL BID [facility]; Protocol Last Admin: 01/08/23 08:27 Dose: 1 appl Documented By: ESVIN Ondansetron HCl (Ondansetron Hcl 4 Mg/2 Ml Vial) 4 mg IVPUSH Q8H PRN PRN Reason: Nausea and Vomiting Pharmacy Consult (Consult Rx Vancomycin Dosing) 1 each MISCELLANE DAILY PRN PRN Reason: Consult order Prednisolone Acetate (Prednisolone Acetate 1 % Oph Susp 5 Ml Drpbtl) 1 drop EYE-RIGHT DAILY [facility] Last Admin: 01/08/23 08:27 Dose: 1 drop Documented By: ESVIN Senna (Sennosides 8.6 Mg Tablet) 17.2 mg PO DAILY PRN PRN Reason: Constipation Sitagliptin Phosphate (Sitagliptin Phosphate 100 Mg Tablet) 100 mg PO DAILY [facility] Last Admin: 01/08/23 08:26 Dose: 100 mg Documented By: ESVIN Sodium Biphosphate/Sodium Phosphate (Sodium Phosphate,Sac-Dibasic 133 Ml Enema) 118 ml [place] BEDTIME PRN PRN Reason: Constipation Sodium Chloride (0.9 % Sodium Chloride Flush 3 Ml Syringe) 3 ml IVFLUSH QSHIFT [facility] Last Admin: 01/08/23 15:05 Dose: 3 ml Documented By: ESVIN Timolol Maleate (Timolol Maleate 0.5 % Oph Mona 5 Ml Drbtl) 1 drop EYE-RIGHT BID [facility] Last Admin: 01/08/23 08:27 Dose: 1 drop Documented By: ESVIN Tiotropium [place] (Tiotropium [place] 2.5 Mcg Inhaler) 1 puff INHALE RDAILY [facility] Last Admin: 01/08/23 07:55 Dose: 1 puff Documented By: MAREK Zinc Oxide (Zinc Oxide (Triple Paste) 56.7 Gm Oint) 1 appl TOPICAL 8XD PRN; Protocol PRN Reason: Diaper Rash Labs 01/08/23 06:24 01/08/23 06:24 Labs: Laboratory Results - last 24 hr 01/07/23 01/07/23 01/08/23 16:31 19:37 06:24 MCV 82.3 MCH 24.9 L MCHC 30.3 L RDW 17.1 H Plt Count 122 L MPV Not Reportable Absolute Nucleated RBC 0.000 Nucleated RBC % (auto) 0.0 Anion Gap 17 Estim Creat Clear Calc 32.9 Estimated GFR 26 POC Glucose 374 H* 408 H* Random Glucose 336 H Calcium 8.3 L 01/08/23 01/08/23 07:25 11:30 MCV MCH MCHC RDW Plt Count MPV Absolute Nucleated RBC Nucleated RBC % (auto) Anion Gap Estim Creat Clear Calc Estimated GFR POC Glucose 317 H 292 H Random Glucose Calcium Assessment and Plan (1) Acute respiratory failure with hypoxia: Status: Acute (2) COVID: Status: Acute Assessment and Plan: 72yo M with CKD3, HFpEF, CLL, COPD not on home O2, DM2, LATONYA, hx heart block, morbid obesity, HTN, HLD, PVD, and hypothyroidism who was recently admitted here 12/12-12/15/22 for hypoxia due to CHF exacerbation and discharged back to [facility] for STR;completed 2 wk of IV meropenem for ESBL UTI and 4 wk of IV vancomycin for MRSA bacteremia/UTI.Sent in with dyspnea and found to have Covid-19 infection with hypoxia 1.Acute hypoxic resp failure due to Covid-19 infection - completed remdesivir and Decadron - titrate O2 as tolerated 2.Oral thrush - Diflucan 100 mg by mouth daily ( started 01/03 through ) 3.Cellulitis of sacrum with stage II decubitus ulcers, - completed course of IV Zosyn and vancomycin - conservative at this time 4.CKD3 -SCr around baseline. - continue to hold Bumex -follow renals/divalents 5.CLL - conitnue acalabrutinib - prednisone 6 mg daily 6.HTN - acceptable control off therapies - add back as clinically appropriate 7.DM2 - acceptable control on current therapies - continue bedtime Lantus -lispro correctional scale Lovenox full code In my clinical judgment, the patient requires continued inpatient hospitalization for the following reasons: hypoxia due to Covid-19 and treatment for extensive Decub ulcer, diarrhea and hypokalemia (3) Diabetes mellitus with insulin therapy: Status: Acute (4) CKD (chronic kidney disease) stage 3, GFR 30-59 ml/min: Status: Acute Time Spent With Patient Time: Total time managing care of this patient today ____ minutes. Quality Stroke Does the patient have a stroke diagnosis?: No VTE Prior VTE?: No VTE Risk Level:: Medical - moderate - high VTE Device Contraindication: Treatment Not Indicated VTE Drug Contraindication: N/A - Med Ordered
[2023-01-08] MEDS: Albuterol/Iprat 2.5/0.5MG 3 ML AMPUL.NEB INHALE (20:40)
[2023-01-08] MEDS: Atorvastatin Calcium 10 MG TABLET PO (21:40)
[2023-01-09] VITALS (8 sets, daily range): BP systolic 104–138; BP diastolic 54–78; PULSE 65–89; RESP 16–20; TEMP 36.1–37; O2SAT 92–100
[2023-01-09] MEDS: Acetaminophen 325 MG TABLET 650 MG PO (09:02)
[2023-01-09] MEDS: Fluconazole 100 MG TABLET PO (09:04)
[2023-01-09] MEDS: guaiFENesin LA 600 MG TAB.ER.12H PO (09:04)
[2023-01-09] MEDS: Insulin Glargine,Hum.rec.anlog 100 UNIT/ML 10 ML VIAL 16 UNIT SUBCUT (09:05)
--- NOTE | 2023-01-09 12:20 | HO.PM.IMPN ---
Subjective Subjective Date of Service: 01/09/23 Interval History: essentially no improvement; states feels somewhat better but still lousy Review of Systems denies chest pain Denies shortness of breath Denies nausea vomiting diarrhea Denies fever chills Physical Exam Vital Signs: Vital Signs: Last Vital Signs Temp 98.2 F 01/09/23 12:00 Pulse 65 01/09/23 12:00 Resp 20 01/09/23 12:00 BP 120/58 L 01/09/23 12:00 Pulse Ox 100 01/09/23 12:00 O2 Del Method Nasal Cannula 01/09/23 12:00 O2 Flow Rate 2 01/09/23 12:00 Oxygen Flow Rate 5 12/31/22 11:48 BMI result Body Mass Index 44.3 Const: Other: no acute distress Resp: Other: clear to auscultation bilaterally no rales rhonchi or wheezes Cardio: Other: no S4; positive S1-S2; no S3 murmurs rubs or gallops GI: Other: soft nontender nondistended normoactive bowel soun Extrem: Other: no edema bilaterally Objective Data Active Medications Acetaminophen (Acetaminophen 325 Mg Tablet) 650 mg PO Q6H PRN PRN Reason: Pain, Mild (Pain Scale 1-3) Last Admin: 01/09/23 09:02 Dose: 650 mg Documented By: ESVIN Acetaminophen/Butalbital/Caffeine (Butalb/Acetamin/Caff 50/325/40 Tablet) 1 tab PO Q6H PRN PRN Reason: Headache Albuterol Sulfate (Albuterol Sulfate (0.042%) 1.25 Mg/3 Ml Vial.Neb) 0.63 mg INHALE Q2H PRN PRN Reason: Shortness Of Breath Or Wheezing Artificial Tears (Artificial Tears 15 Ml Drops) 1 drop EYE-BOTH BID [facility] Last Admin: 01/09/23 09:04 Dose: 1 drop Documented By: ESVIN Atorvastatin Calcium (Atorvastatin Calcium 10 Mg Tablet) 10 mg PO BEDTIME [facility] Last Admin: 01/08/23 21:40 Dose: 10 mg Documented By: IRINA Benzocaine (Throat Lozenge, Medicated Lozenge) 1 lozenge MUCOUS MEM Q2H PRN PRN Reason: Sore Throat Last Admin: 01/02/23 13:14 Dose: 1 lozenge Documented By: MARY GRACE Bisacodyl (Bisacodyl 10 Mg Supp.Rect) 10 mg [place] DAILY PRN PRN Reason: Constipation Chlordiazepoxide HCl (Chlordiazepoxide Hcl 5 Mg Capsule) 10 mg PO BEDTIME [facility] Last Admin: 01/08/23 21:41 Dose: 10 mg Documented By: IRINA Heparin Sodium (Porcine) 50 (units/ Sodium Chloride 5 ml) 0 units IVFLUSH DAILY [facility] Last Admin: 01/09/23 09:03 Dose: 50 unit Documented By: ESVIN Dexamethasone (Dexamethasone 6 Mg Tablet) 6 mg PO DAILY [facility] Stop: 01/10/23 23:59 Last Admin: 01/09/23 09:04 Dose: 6 mg Documented By: ESVIN Dextrose (Dextrose 50 % 25 Gm/50 Ml Syringe) 25 gm IVPUSH Q15M PRN; Protocol PRN Reason: per Hypoglycemia Standing Ord. Docusate Sodium (Docusate Sodium 100 Mg Capsule) 100 mg PO DAILY PRN PRN Reason: Constipation Enoxaparin Sodium (Enoxaparin Sodium 40 Mg/0.4 Ml Syringe) 40 mg SUBCUT Q24H [facility] Last Admin: 01/08/23 15:05 Dose: 40 mg Documented By: ESVIN Escitalopram Oxalate (Escitalopram Oxalate 10 Mg Tablet) 10 mg PO DAILY [facility] Last Admin: 01/09/23 09:04 Dose: 10 mg Documented By: ESVIN Fluconazole (Fluconazole 100 Mg Tablet) 100 mg PO DAILY [facility] Stop: 01/12/23 09:01 Last Admin: 01/09/23 09:04 Dose: 100 mg Documented By: ESVIN Fluticasone/Vilanterol (Fluticasone/Vilanterol 200/25 Blst.W.Dev) 1 puff INHALE RDAILY [facility] Last Admin: 01/09/23 07:57 Dose: 1 puff Documented By: MAREK Glucose (Glucose Gel 15 Gm Gel..Gram.) 15 gm PO Q15M PRN; Protocol PRN Reason: per Hypoglycemia Standing Ord. Guaifenesin (Guaifenesin La 600 Mg Tab.Er.12h) 600 mg PO BID [facility] Last Admin: 01/09/23 09:04 Dose: 600 mg Documented By: ESVIN Guaifenesin/Dextromethorphan (Guaifenesin Dm 100/10/5 Ml 5 Ml Syrup) 10 ml PO QID [facility] Last Admin: 01/09/23 09:03 Dose: 10 ml Documented By: ESVIN Hydroxychloroquine Sulfate (Hydroxychloroquine Sulfate 200 Mg Tablet) 200 mg PO BID [facility] Last Admin: 01/09/23 09:04 Dose: 200 mg Documented By: ESVIN Hydroxyzine HCl (Hydroxyzine Hcl 25 Mg Tablet) 25 mg PO DAILY [facility] Last Admin: 01/09/23 09:04 Dose: 25 mg Documented By: ESVIN Insulin Glargine (Insulin Glargine,Hum.Rec.Anlog 100 Unit/Ml 10 Ml Vial) 16 unit SUBCUT DAILY [facility] Last Admin: 01/09/23 09:05 Dose: 16 unit Documented By: ESVIN Insulin Human Lispro (Insulin Lispro 100 Unit/Ml 3 Ml Vial) 0 unit SUBCUT QIDACHS [facility]; Protocol Last Admin: 01/09/23 09:05 Dose: 12 unit Documented By: ESVIN Latanoprost (Latanoprost 0.005 % Ophth Mona 2.5 Ml Drops) 1 drop EYE-BOTH BEDTIME [facility] Last Admin: 01/08/23 21:45 Dose: 1 drop Documented By: IRINA Levalbuterol HCl (Levalbuterol Hcl 1.25 Mg/3 Ml Vial.Neb) 1.25 mg INHALE RQID [facility] Last Admin: 01/09/23 11:14 Dose: Not Given Documented By: MAREK Non-Admin Reason: Patient Asleep Levothyroxine Sodium (Levothyroxine Sodium 175 Mcg Tablet) 175 mcg PO DAILY@0600 [facility] Last Admin: 01/09/23 05:54 Dose: 175 mcg Documented By: IRINA Lidocaine/Diphenhydr/Alum/Mg/Simeth (Mag&Al/Sim/Diphenhyd/Lidocaine 10 Ml Oral.Susp) 10 ml PO Q4H PRN; Protocol PRN Reason: Mouth Sore Pain Last Admin: 01/07/23 09:16 Dose: 10 ml Documented By: ESVIN Loperamide HCl (Loperamide Hcl 2 Mg Capsule) 4 mg PO Q4H PRN PRN Reason: Diarrhea Last Admin: 01/09/23 06:37 Dose: 4 mg Documented By: IRINA Lorazepam (Lorazepam 0.5 Mg Tablet) 0.5 mg PO BID [facility] Last Admin: 01/09/23 09:04 Dose: 0.5 mg Documented By: ESVIN Magnesium Oxide (Magnesium Oxide 400 Mg Tablet) 200 mg PO DAILY [facility] Last Admin: 01/09/23 09:04 Dose: 200 mg Documented By: ESVIN Melatonin (Melatonin 3 Mg Tablet) 6 mg PO BEDTIME [facility] Last Admin: 01/08/23 21:43 Dose: 6 mg Documented By: IRINA Pt Own Med Medication ( Acalabrutinib Maleate [Calquence ( Acalabrutinib Mal)] 100 Mg Tab 100 mg PO Q12H [facility] Last Admin: 01/09/23 09:04 Dose: 100 mg Documented By: ESVIN Nystatin (Nystatin Powder 15 Gm Bottle) 1 appl TOPICAL BID [facility]; Protocol Last Admin: 01/09/23 09:05 Dose: 1 appl Documented By: ESVIN Ondansetron HCl (Ondansetron Hcl 4 Mg/2 Ml Vial) 4 mg IVPUSH Q8H PRN PRN Reason: Nausea and Vomiting Pharmacy Consult (Consult Rx Vancomycin Dosing) 1 each MISCELLANE DAILY PRN PRN Reason: Consult order Prednisolone Acetate (Prednisolone Acetate 1 % Oph Susp 5 Ml Drpbtl) 1 drop EYE-RIGHT DAILY [facility] Last Admin: 01/09/23 09:05 Dose: 1 drop Documented By: ESVIN Senna (Sennosides 8.6 Mg Tablet) 17.2 mg PO DAILY PRN PRN Reason: Constipation Sitagliptin Phosphate (Sitagliptin Phosphate 100 Mg Tablet) 100 mg PO DAILY [facility] Last Admin: 01/09/23 09:04 Dose: 100 mg Documented By: ESVIN Sodium Biphosphate/Sodium Phosphate (Sodium Phosphate,[place]-Dibasic 133 Ml Enema) 118 ml [place] BEDTIME PRN PRN Reason: Constipation Sodium Chloride (0.9 % Sodium Chloride Flush 3 Ml Syringe) 3 ml IVFLUSH QSHIFT [facility] Last Admin: 01/09/23 09:04 Dose: 3 ml Documented By: ESVIN Timolol Maleate (Timolol Maleate 0.5 % Oph Mona 5 Ml Drbtl) 1 drop EYE-RIGHT BID [facility] Last Admin: 01/09/23 09:05 Dose: 1 drop Documented By: ESVIN Tiotropium [place] (Tiotropium [place] 2.5 Mcg Inhaler) 1 puff INHALE RDAILY [facility] Last Admin: 01/08/23 20:41 Dose: 1 puff Documented By: VINAYAK Zinc Oxide (Zinc Oxide (Triple Paste) 56.7 Gm Oint) 1 appl TOPICAL 8XD PRN; Protocol PRN Reason: Diaper Rash Labs 01/09/23 07:41 01/09/23 07:41 Labs: Laboratory Results - last 24 hr 01/08/23 01/08/23 01/09/23 16:36 20:43 07:32 MCV MCH MCHC RDW Plt Count MPV Immature Gran % (Auto) Neut % (Auto) Lymph % (Auto) [place] % (Auto) Eos % (Auto) Baso % (Auto) Lymph # (Auto) [place] # (Auto) Eos # (Auto) Baso # (Auto) Abs Immat Gran (auto) Absolute Neuts (auto) Absolute Nucleated RBC Nucleated RBC % (auto) Anion Gap Estim Creat Clear Calc Estimated GFR POC Glucose 383 H* 447 H* 331 H Fasting Glucose Calcium Total Bilirubin AST ALT Alkaline Phosphatase Total Protein Albumin 01/09/23 01/09/23 07:41 11:23 MCV 81.7 MCH 25.1 L MCHC 30.7 L RDW 17.2 H Plt Count 159 L D MPV 12.6 H Immature Gran % (Auto) 1.1 H Neut % (Auto) 89.9 H Lymph % (Auto) 3.3 L [place] % (Auto) 5.6 Eos % (Auto) 0.0 Baso % (Auto) 0.1 Lymph # (Auto) 0.5 L [place] # (Auto) 0.9 Eos # (Auto) 0.0 Baso # (Auto) 0.0 Abs Immat Gran (auto) 0.18 H Absolute Neuts (auto) 14.3 H Absolute Nucleated RBC 0.000 Nucleated RBC % (auto) 0.0 Anion Gap 14 Estim Creat Clear Calc 34.3 Estimated GFR 27 POC Glucose 360 H* Fasting Glucose 369 H* Calcium 8.3 L Total Bilirubin 0.2 AST 8 ALT 6 Alkaline Phosphatase 56 Total Protein 5.5 L Albumin 2.4 L Assessment and Plan (1) COVID: Status: Acute Assessment and Plan: 72yo M with CKD3, HFpEF, CLL, COPD not on home O2, DM2, LATONYA, hx heart block, morbid obesity, HTN, HLD, PVD, and hypothyroidism who was recently admitted here 12/12-12/15/22 for hypoxia due to CHF exacerbation and discharged back to [facility] for STR;completed 2 wk of IV meropenem for ESBL UTI and 4 wk of IV vancomycin for MRSA bacteremia/UTI.Sent in with dyspnea and found to have Covid-19 infection with hypoxia 1.Acute hypoxic resp failure due to Covid-19 infection - completed remdesivir and Decadron - titrate O2 as tolerated 2.Oral thrush - Diflucan 100 mg by mouth daily ( started 01/03 through ) 3.Cellulitis of sacrum with stage II decubitus ulcers, - completed course of IV Zosyn and vancomycin - conservative at this time 4.CKD3 -SCr around baseline. - continue to hold Bumex -follow renals/divalents 5.CLL - conitnue acalabrutinib - prednisone 6 mg daily 6.HTN - acceptable control off therapies - add back as clinically appropriate 7.DM2 - acceptable control on current therapies - continue bedtime Lantus -lispro correctional scale Lovenox full code In my clinical judgment, the patient requires continued inpatient hospitalization for the following reasons: hypoxia due to Covid-19 and treatment for extensive Decub ulcer, diarrhea and hypokalemia and safe placement (2) Acute respiratory failure with hypoxia: Status: Acute Time Spent With Patient Time: Total time managing care of this patient today ____ minutes. Quality Stroke Does the patient have a stroke diagnosis?: No VTE Prior VTE?: No VTE Risk Level:: Medical - moderate - high VTE Device Contraindication: Treatment Not Indicated VTE Drug Contraindication: N/A - Med Ordered
[2023-01-09] MEDS: Atorvastatin Calcium 10 MG TABLET PO (22:37)
[2023-01-10] VITALS (9 sets, daily range): BP systolic 124–167; BP diastolic 6–86; PULSE 66–84; RESP 16–20; TEMP 36–36.6; O2SAT 79–100
[2023-01-10] MEDS: Fluconazole 100 MG TABLET PO (08:08)
[2023-01-10] MEDS: Insulin Glargine,Hum.rec.anlog 100 UNIT/ML 10 ML VIAL 16 UNIT SUBCUT (08:09)
--- NOTE | 2023-01-10 13:50 | HO.PM.IMPN ---
Subjective Subjective Date of Service: 01/10/23 Interval History: minimal improvement over last 24 hours maintaining sats on 2 L Review of Systems denies chest pain Denies shortness of breath Denies nausea vomiting diarrhea Denies fever chills Physical Exam Vital Signs: Vital Signs: Last Vital Signs Temp 97.9 F 01/10/23 11:37 Pulse 68 01/10/23 11:37 Resp 19 01/10/23 11:37 BP 152/67 H 01/10/23 11:37 Pulse Ox 99 01/10/23 11:37 O2 Del Method Nasal Cannula 01/10/23 11:37 O2 Flow Rate 2 01/10/23 11:37 Oxygen Flow Rate 5 12/31/22 11:48 BMI result Body Mass Index 44.3 Const: Other: no acute distress Resp: Other: clear to auscultation bilaterally no rales rhonchi or wheezes Cardio: Other: no S4; positive S1-S2; no S3 murmurs rubs or gallops GI: Other: soft nontender nondistended normoactive bowel soun Extrem: Other: no edema bilaterally Objective Data Active Medications Acetaminophen (Acetaminophen 325 Mg Tablet) 650 mg PO Q6H PRN PRN Reason: Pain, Mild (Pain Scale 1-3) Last Admin: 01/10/23 13:11 Dose: 650 mg Documented By: HEAVEN Acetaminophen/Butalbital/Caffeine (Butalb/Acetamin/Caff 50/325/40 Tablet) 1 tab PO Q6H PRN PRN Reason: Headache Albuterol Sulfate (Albuterol Sulfate (0.042%) 1.25 Mg/3 Ml Vial.Neb) 0.63 mg INHALE Q2H PRN PRN Reason: Shortness Of Breath Or Wheezing Artificial Tears (Artificial Tears 15 Ml Drops) 1 drop EYE-BOTH BID [facility] Last Admin: 01/10/23 08:15 Dose: 1 drop Documented By: HEAVEN Atorvastatin Calcium (Atorvastatin Calcium 10 Mg Tablet) 10 mg PO BEDTIME [facility] Last Admin: 01/09/23 22:37 Dose: 10 mg Documented By: IRINA Benzocaine (Throat Lozenge, Medicated Lozenge) 1 lozenge MUCOUS MEM Q2H PRN PRN Reason: Sore Throat Last Admin: 01/02/23 13:14 Dose: 1 lozenge Documented By: MARY GRACE Bisacodyl (Bisacodyl 10 Mg Supp.Rect) 10 mg FL DAILY PRN PRN Reason: Constipation Heparin Sodium (Porcine) 50 (units/ Sodium Chloride 5 ml) 0 units IVFLUSH DAILY [facility] Last Admin: 01/10/23 08:18 Dose: 50 unit Documented By: HEAVEN Dexamethasone (Dexamethasone 6 Mg Tablet) 6 mg PO DAILY [facility] Stop: 01/10/23 23:59 Last Admin: 01/10/23 08:08 Dose: 6 mg Documented By: HEAVEN Dextrose (Dextrose 50 % 25 Gm/50 Ml Syringe) 25 gm IVPUSH Q15M PRN; Protocol PRN Reason: per Hypoglycemia Standing Ord. Docusate Sodium (Docusate Sodium 100 Mg Capsule) 100 mg PO DAILY PRN PRN Reason: Constipation Enoxaparin Sodium (Enoxaparin Sodium 40 Mg/0.4 Ml Syringe) 40 mg SUBCUT Q24H [facility] Last Admin: 01/10/23 11:43 Dose: 40 mg Documented By: HEAVEN Escitalopram Oxalate (Escitalopram Oxalate 10 Mg Tablet) 10 mg PO DAILY [facility] Last Admin: 01/10/23 08:07 Dose: 10 mg Documented By: HEAVEN Fluconazole (Fluconazole 100 Mg Tablet) 100 mg PO DAILY [facility] Stop: 01/12/23 09:01 Last Admin: 01/10/23 08:08 Dose: 100 mg Documented By: HEAVEN Fluticasone/Vilanterol (Fluticasone/Vilanterol 200/25 Blst.W.Dev) 1 puff INHALE RDAILY [facility] Last Admin: 01/10/23 07:36 Dose: 1 puff Documented By: NINA Glucose (Glucose Gel 15 Gm Gel..Gram.) 15 gm PO Q15M PRN; Protocol PRN Reason: per Hypoglycemia Standing Ord. Guaifenesin (Guaifenesin La 600 Mg Tab.Er.12h) 600 mg PO BID [facility] Last Admin: 01/10/23 08:08 Dose: 600 mg Documented By: HEAVEN Guaifenesin/Dextromethorphan (Guaifenesin Dm 100/10/5 Ml 5 Ml Syrup) 10 ml PO QID [facility] Last Admin: 01/10/23 11:47 Dose: Not Given Documented By: HEAVEN Non-Admin Reason: Patient Refused Hydroxychloroquine Sulfate (Hydroxychloroquine Sulfate 200 Mg Tablet) 200 mg PO BID [facility] Last Admin: 01/10/23 08:09 Dose: 200 mg Documented By: HEAVEN Hydroxyzine HCl (Hydroxyzine Hcl 25 Mg Tablet) 25 mg PO DAILY [facility] Last Admin: 01/10/23 08:08 Dose: 25 mg Documented By: HEAVEN Insulin Glargine (Insulin Glargine,Hum.Rec.Anlog 100 Unit/Ml 10 Ml Vial) 16 unit SUBCUT DAILY [facility] Last Admin: 01/10/23 08:09 Dose: 16 unit Documented By: HEAVEN Insulin Human Lispro (Insulin Lispro 100 Unit/Ml 3 Ml Vial) 0 unit SUBCUT QIDACHS [facility]; Protocol Last Admin: 01/10/23 11:42 Dose: Not Given Documented By: HEAVEN Non-Admin Reason: admin on another 1x order Latanoprost (Latanoprost 0.005 % Ophth Mona 2.5 Ml Drops) 1 drop EYE-BOTH BEDTIME [facility] Last Admin: 01/09/23 22:51 Dose: 1 drop Documented By: IRINA Levalbuterol HCl (Levalbuterol Hcl 1.25 Mg/3 Ml Vial.Neb) 1.25 mg INHALE RQID [facility] Last Admin: 01/10/23 11:30 Dose: 1.25 mg Documented By: NINA Levothyroxine Sodium (Levothyroxine Sodium 175 Mcg Tablet) 175 mcg PO DAILY@0600 [facility] Last Admin: 01/10/23 06:57 Dose: 175 mcg Documented By: IRINA Lidocaine/Diphenhydr/Alum/Mg/Simeth (Mag&Al/Sim/Diphenhyd/Lidocaine 10 Ml Oral.Susp) 10 ml PO Q4H PRN; Protocol PRN Reason: Mouth Sore Pain Last Admin: 01/07/23 09:16 Dose: 10 ml Documented By: ESVIN Loperamide HCl (Loperamide Hcl 2 Mg Capsule) 4 mg PO Q4H PRN PRN Reason: Diarrhea Last Admin: 01/10/23 13:11 Dose: 4 mg Documented By: HEAVEN Magnesium Oxide (Magnesium Oxide 400 Mg Tablet) 200 mg PO DAILY [facility] Last Admin: 01/10/23 08:08 Dose: 200 mg Documented By: HEAVEN Melatonin (Melatonin 3 Mg Tablet) 6 mg PO BEDTIME [facility] Last Admin: 01/09/23 22:53 Dose: 6 mg Documented By: IRINA Pt Own Med Medication ( Acalabrutinib Maleate [Calquence ( Acalabrutinib Mal)] 100 Mg Tab 100 mg PO Q12H [facility] Last Admin: 01/10/23 08:10 Dose: 100 mg Documented By: HEAVEN Nystatin (Nystatin Powder 15 Gm Bottle) 1 appl TOPICAL BID [facility]; Protocol Last Admin: 01/10/23 08:10 Dose: 1 appl Documented By: HEAVEN Ondansetron HCl (Ondansetron Hcl 4 Mg/2 Ml Vial) 4 mg IVPUSH Q8H PRN PRN Reason: Nausea and Vomiting Pharmacy Consult (Consult Rx Vancomycin Dosing) 1 each MISCELLANE DAILY PRN PRN Reason: Consult order Prednisolone Acetate (Prednisolone Acetate 1 % Oph Susp 5 Ml Drpbtl) 1 drop EYE-RIGHT DAILY [facility] Last Admin: 01/10/23 08:15 Dose: 1 drop Documented By: HEAVEN Senna (Sennosides 8.6 Mg Tablet) 17.2 mg PO DAILY PRN PRN Reason: Constipation Sitagliptin Phosphate (Sitagliptin Phosphate 100 Mg Tablet) 100 mg PO DAILY [facility] Last Admin: 01/10/23 08:07 Dose: 100 mg Documented By: HEAVEN Sodium Biphosphate/Sodium Phosphate (Sodium Phosphate,[place]-Dibasic 133 Ml Enema) 118 ml FL BEDTIME PRN PRN Reason: Constipation Sodium Chloride (0.9 % Sodium Chloride Flush 3 Ml Syringe) 3 ml IVFLUSH QSHIFT [facility] Last Admin: 01/10/23 13:12 Dose: 3 ml Documented By: HEAVEN Timolol Maleate (Timolol Maleate 0.5 % Oph Mona 5 Ml Drbtl) 1 drop EYE-RIGHT BID [facility] Last Admin: 01/10/23 08:15 Dose: 1 drop Documented By: HEAVEN Tiotropium [place] (Tiotropium [place] 2.5 Mcg Inhaler) 1 puff INHALE RDAILY [facility] Last Admin: 01/10/23 07:36 Dose: 1 puff Documented By: NINA Zinc Oxide (Zinc Oxide (Triple Paste) 56.7 Gm Oint) 1 appl TOPICAL 8XD PRN; Protocol PRN Reason: Diaper Rash Labs 01/09/23 07:41 01/09/23 07:41 Labs: Laboratory Results - last 24 hr 01/09/23 01/09/23 01/10/23 16:16 20:10 07:28 POC Glucose 391 H* 435 H* 287 H 01/10/23 11:05 POC Glucose 406 H* Assessment and Plan (1) COVID: Status: Acute Assessment and Plan: 72yo M with CKD3, HFpEF, CLL, COPD not on home O2, DM2, LATONYA, hx heart block, morbid obesity, HTN, HLD, PVD, and hypothyroidism who was recently admitted here 12/12-12/15/22 for hypoxia due to CHF exacerbation and discharged back to [facility] for STR;completed 2 wk of IV meropenem for ESBL UTI and 4 wk of IV vancomycin for MRSA bacteremia/UTI.Sent in with dyspnea and found to have Covid-19 infection with hypoxia 1.Acute hypoxic resp failure due to Covid-19 infection - completed remdesivir and Decadron - titrate O2 as tolerated... slow wean 2.Oral thrush - Diflucan 100 mg by mouth daily ( started 01/03 through ) 3.Cellulitis of sacrum with stage II decubitus ulcers, - completed course of IV Zosyn and vancomycin - conservative at this time 4.CKD3 -SCr around baseline. - continue to hold Bumex -follow renals/divalents 5.CLL - conitnue acalabrutinib - prednisone 6 mg daily 6.HTN - acceptable control off therapies - add back as clinically appropriate 7.DM2 - acceptable control on current therapies - continue bedtime Lantus -lispro correctional scale Lovenox full code In my clinical judgment, the patient requires continued inpatient hospitalization for the following reasons: hypoxia due to Covid-19 and treatment for extensive Decub ulcer, diarrhea and hypokalemia and safe placement (2) Acute respiratory failure with hypoxia: Status: Acute Time Spent With Patient Time: Total time managing care of this patient today ____ minutes. Quality Stroke Does the patient have a stroke diagnosis?: No VTE Prior VTE?: No VTE Risk Level:: Medical - moderate - high VTE Device Contraindication: Treatment Not Indicated VTE Drug Contraindication: N/A - Med Ordered
[2023-01-10] MEDS: Atorvastatin Calcium 10 MG TABLET PO (20:31)
[2023-01-11 04:00] VITALS: BP 160/70; PULSE 80; RESP 18; TEMP 36.1; O2SAT 100
--- NOTE | 2023-01-11 04:46 | PC.NURSE ---
CARE ASSUMED 7PM...ALERT..ORIENTED X3...LEGALLY BLIND....ALERT..ORIENTED X3....HS POC DBOTWUB=[id number]...POC SUGARS ELEVATED PAST 36 HOURS....DR SNIDER UPDATED.....TO GIVE 14 UNITS LISPRO INSULIN PER JUN....DECADRON FINISHED/D/C'D 10/9 AM...TO ASSESS AM GLUCOSE AND ? TITRATE LANTUS DOSAGE AND/OR FREQUENCY....INCONTINANT URINE AND SOFT TRENT BROWN STOOL X2...PURWIK RE-APPLIED.....BUTTOCKS REMAIN MACERATED...BARRIER OINTMENT CREAM REAPPLIED...DENIES DISCOMFORT OR SOB
[2023-01-11 07:21] VITALS: PULSE 65; RESP 16; O2SAT 99
[2023-01-11 08:00] VITALS: BP 128/57; PULSE 71; RESP 18; TEMP 36.5
[2023-01-11] MEDS: Insulin Glargine,Hum.rec.anlog 100 UNIT/ML 10 ML VIAL 16 UNIT SUBCUT (09:08)
--- NOTE | 2023-01-11 11:01 | MHC.CM.PN ---
Second IMM given 01/11. Pt is medically cleared for discharge back to [facility] for STR. Transport set up for 2:30pm via [facility].
[2023-01-11 11:36] VITALS: BP 132/63; PULSE 70; RESP 17; TEMP 36.2; O2SAT 100
--- NOTE | 2023-01-11 12:11 | PM.DS ---
DS: Providers Provider Date of Service: 01/11/23 Date of admission: 12/31/22 14:42 Date of discharge: 01/11/23 Primary care physician: Tam Corea MD Consults: 12/31/22 15:49 Consult to Infectious Diseases Routine Consulting [place] [facility] [place] Reason for consultation: UTI w/PMH of ESBL UTI with MRSA bacteremia DS: Diagnosis Discharge Diagnosis (1) COVID: Status: Acute (2) Acute respiratory failure with hypoxia: Status: Acute DS: Summary Hospital Course Hospital Course: 72-year-old female with a PMH significant for?CKD 3, HFpEF, CLL, COPD not on home O2, Insulin-dependent diabetes type 2, LATONYA, heart block, obesity class 3, HTN, HLD, PVD, and hypothyroidism who presents to the ED from [facility]. Patient was recently admitted to the hospital from 11/27-12/03/2022 and treated for UTI and bacteremia. Chavez catheter was placed by IR and patient was discharged to [facility] 2 weeks of IV meropenem to treat E coli (ESBL) and 28 days of IV vancomycin to treat MRSA bacteremia. Pt was readmitted on 12/12-12/14 and treated for acute CHF exacerbation. Pt completed meropenem during second admission and completed vancomycin course yesterday at [facility]. Pt presents today d/t leukocytosis and increasing SOB. Patient's main complaint is having a raw, painful backside the particularly hurts when she urinates. Patient has been experiencing polyuria though denies dysuria. Has also been experiencing increased shortness of breath with increased supplemental O2 oxygen demand at the facility. Patient was initially discharged on 2 L NC which was increased to 5 L at [facility]. Has had headache, sore and dry throat and mouth, and nonproductive cough for the past few days. Patient's niece is at bedside and notes patient was lethargic and ?totally out of it?, sleeping all day and night for the past couple days. Patient had been tested for COVID at facility at least twice within the past week, and had tested negative both times. Patient denies chest pain/pressure, palpitations. No fever, chills, nausea, vomiting, abdominal pain. ED course P atient was afebrile with slightly soft BP of 127/46, satting at 100% O2 on 5 L NC. Labs were significant for WBC 24.6 (chronically elevated), H&H 8.3/27.0, BUN 41, creatinine 1.49, random glucose 30, potassium 5.7. Patient tested positive for COVID. UA positive for UTI. CXR showed suspected cardiomegaly, with mild vascular congestion excluded. Pt was treated with vanc and Zosyn. Pt will be admitted to the hospital for treatment further evaluation of acute hypoxic respiratory failure in setting of COVID infection Hospital course Admitted to telemetry and sats were monitored closely. Completed course of Zosyn and vancomycin without issue. Over time, oxygen was able to be weaned down to 2 L per minute nasal cannula with sats of 96%. Urine ultimately grew out Oly albicans for which she was treated with Diflucan as per ID recommendation. All blood cultures have remained negative. All comorbidities which treated as indicated and at the time of discharge she has been stable on her 2 L which can be weaned at the SNF. She will complete her last dose of doxycycline 01/13/23 Time Spent with Patient Time attestation: Total time managing care of this patient today ____ minutes. Discharge coordination time: Greater than 30 minutes Quality: Safe Use of Opioids Does Pt have an Active Cancer Diagnosis on the Problem List?: No Quality: Stroke Does the patient have a stroke diagnosis?: No Physical Exam Vital Signs: Vital Signs: Last Vital Signs Temp 97.1 F 01/11/23 11:36 Pulse 70 01/11/23 11:36 Resp 17 01/11/23 11:36 BP 132/63 01/11/23 11:36 Pulse Ox 100 01/11/23 11:36 O2 Del Method Nasal Cannula 01/11/23 11:36 O2 Flow Rate 2 01/11/23 11:36 Oxygen Flow Rate 5 12/31/22 11:48 BMI result Body Mass Index 44.3 Const: Other: no acute distress Resp: Other: clear to auscultation bilaterally no rales rhonchi or wheezes Cardio: Other: no S4; positive S1-S2; no S3 murmurs rubs or gallops GI: Other: soft nontender nondistended normoactive bowel soun Extrem: Other: no edema bilaterally DS: Data Data Completed and Pending Completed studies during hospitalization [Text1]: Procedures Assistance with Respiratory Ventilation, Less than 24 Consecutive Hours, Continuous Positive Airway Pressure (07/30/22) Dilation of Bilateral Ureters with Intraluminal Device, Via Natural or Artificial Opening Endoscopic (10/28/22) Drainage of Left Main Bronchus, Via Natural or Artificial Opening Endoscopic, Diagnostic (11/19/21) Drainage of Left Pleural Cavity, Percutaneous Approach (11/19/21) Drainage of Right Main Bronchus, Via Natural or Artificial Opening Endoscopic, Diagnostic (11/19/21) Drainage of Right Pleural Cavity, Percutaneous Approach (11/19/21) Excision of Right Inguinal Lymphatic, Percutaneous Approach, Diagnostic (11/19/21) Excision of Thorax Lymphatic, Percutaneous Endoscopic Approach, Diagnostic (11/19/21) Fluoroscopy of Kidneys, Ureters and Bladder (10/28/22) Insertion of Endotracheal Airway into Trachea, Via Natural or Artificial Opening (11/19/21) Insertion of Infusion Device into Superior Vena Cava, Percutaneous Approach (11/26/22) Insertion of Tunneled Vascular Access Device into Chest Subcutaneous Tissue and Fascia, Percutaneous Approach (11/26/22) Inspection of Tracheobronchial Tree, Via Natural or Artificial Opening Endoscopic (11/19/21) Introduction of Remdesivir Anti-infective into Peripheral Vein, Percutaneous Approach, [employer] (10/11/21) Introduction of Vasopressor into Central Vein, Percutaneous Approach (10/28/22) Performance of Urinary Filtration, Intermittent, Less than 6 Hours Per Day (10/28/22) Respiratory Ventilation, Greater than 96 Consecutive Hours (11/19/21) Transfusion of Nonautologous Red Blood Cells into Peripheral Vein, Percutaneous Approach (10/28/22) Ultrasonography of Superior Vena Cava, Guidance (11/26/22) Labs on day of discharge: Laboratory Results - last 24 hr 01/10/23 01/10/23 01/11/23 16:45 21:26 07:50 POC Glucose 380 H* 399 H* 153 H 01/11/23 11:34 POC Glucose 265 H Discharge Plan Discharge Anticipated Discharge Date/Time: 01/11/23 12:06 Patient Disposition: Xfer LT Discharge Diagnosis: Acute respiratory failure with hypoxia secondary to COVID-19 Referrals: [facility] [Outside] - 1 Week Tam Corea MD [Primary Care Provider] - 1 Week Discharge Medications: New fluconazole 100 mg Tablet 100 mg PO DAILY Qty: 2 0RF Continued levothyroxine 175 mcg tablet 175 mcg PO DAILY@0600 citalopram 20 mg tablet 20 mg PO DAILY simvastatin 20 mg tablet 20 mg PO BEDTIME chlordiazepoxide HCl 10 mg capsule 10 mg PO BEDTIME insulin lispro protamin-lispro 100 unit/mL (75-25) insulin pen 0 unit subcut QIDACHS Protocol: Insulin Correction Scale Less than or equal to 110 ---- Give (units): 0 111 to 150 Give (units): 0 151 to 200 Give (units): 2 201 to 250 Give (units): 4 251 to 300 Give (units): 6 301 to 350 Give (units): 8 Greater than 350 Give (units): 10 Call MD if Blood Glucose > : 350 Januvia 100 mg tablet 100 mg PO DAILY Fleet Enema 19-7 gram/118 mL Enema 118 ml SD BEDTIME PRN (Reason: Constipation) guaifenesin 600 mg Tablet Extended Release 12hr 600 mg PO BID acetaminophen [Tylenol] 325 mg Tablet 650 mg PO Q4H PRN (Reason: Pain (Scale Score 4-6)) amlodipine 10 mg tablet 10 mg PO DAILY lorazepam 0.5 mg tablet 0.5 mg PO BID bisacodyl 10 mg Suppository 10 mg SD DAILY PRN (Reason: Constipation) hydroxyzine HCl 25 mg tablet 25 mg PO DAILY hydroxychloroquine 200 mg tablet 200 mg PO BID magnesium 200 mg Tablet 200 mg PO DAILY biotin 5 mg Tablet 5 mg PO DAILY riboflavin (vitamin B2) 400 mg Tablet 400 mg PO DAILY Calquence (acalabrutinib mal) 100 mg Tablet 100 mg PO Q12H Qty: 60 3RF Incruse Ellipta 62.5 mcg/actuation Blister With Device 1 inh INHALATION DAILY budesonide-formoterol [Symbicort] 160-4.5 mcg/actuation Hfa Aerosol Inhaler 2 puff INHALATION BID latanoprost 0.005 % drops 1 drp ophthalmic (eye) BEDTIME Rx Instructions: 1 drop into both eyes albuterol sulfate 0.63 mg/3 mL Solution For Nebulization 0.63 mg INHALATION Q2H PRN (Reason: Shortness Of Breath Or Wheezing) sennosides [senna] 8.6 mg Tablet 17.2 mg PO DAILY PRN (Reason: Constipation) zpolafwqfg-rzofqsxawmvse-utns 50-325-40 mg tablet 1 tab PO Q6H PRN (Reason: Headache) prednisolone acetate 1 % drops,suspension 1 drp ophthalmic-Right DAILY timolol maleate 0.5 % drops 1 drp ophthalmic-Right BID coenzyme Q10 [CoQ-10] 100 mg Capsule 150 mg PO DAILY melatonin 5 mg Tablet 5 mg PO BEDTIME Simbrinza 1-0.2 % drops,suspension 1 drp ophthalmic-Right BID insulin glargine [Lantus Solostar U-100 Insulin] 100 unit/mL (3 mL) insulin pen 16 unit subcut BID Hold Instructions: Resume on 05/10/22. Artificial Tears (cmc) 1 % Drops 1 drp OPHTHALMIC (EYE) BID levalbuterol HCl 1.25 mg/3 mL Solution For Nebulization 1.25 mg INHALATION QID potassium chloride 20 mEq Tablet,Er Particles/Crystals 40 meq PO DAILY Qty: 30 0RF diphenhydramine-zinc acetate 2-0.1 % Cream 1 appl TOPICAL BID Rx Instructions: apply to groin/coccyx prednisone 1 mg Tablet 6 mg PO DAILY nystatin 100,000 unit/gram Powder 1 appl TOPICAL BID acidophilus-pectin, citrus 100 million cell-10 mg Capsule 1 cap PO BID loperamide 2 mg Capsule 4 mg PO Q4H PRN (Reason: Diarrhea) Qty: 30 0RF bumetanide 1 mg tablet 2 mg PO BID@0800,1700 Protocol: Hold for SBP< HOLD for SBP < : 90 Discharge Orders: Discharge Order (Routine); Ordered 01/11/23 Ordered By: Logan Martinez Diet: Advance to usual diet Activity on Discharge: As tolerated Stand Alone Forms: Patient Portal Discharge page Care Plan Goals: Resume all pre-hospital medications Health Concerns: Patient to complete course of Diflucan; last dose 01/12/2023 Plan of Treatment: As per receiving facility Assessment: See discharge summary
[2023-01-11 12:30] VITALS: PULSE 66; RESP 16; O2SAT 98
--- NOTE | 2023-01-11 14:34 | PC.NURSE ---
called Yair Soriano to give RN to RN report, but there was no answer
== END 2023-01-11 15:31 | DRG 177 ==
LOC: HO.ED 14:53 → HO.EDOVER 15:00 → HO.IMC 16:03
PROVIDERS: Family Medicine; Hospitalist; Physician Assistant Medical; Admitting Provider Student in an Organized Health Care Education/Training Program; Emergency Provider Emergency Medicine Emergency Medical Services; PCP Internal Medicine; Visit Provider Hospitalist
DX: U07.1 COVID-19 (principal); J96.01 Acute respiratory failure with hypoxia; Z68.41 Body mass index [BMI] 40.0-44.9, adult; C91.10 Chronic lymphocytic leukemia of B-cell type not having achieved remission; I50.32 Chronic diastolic (congestive) heart failure; B37.49 Other urogenital candidiasis; B37.0 Candidal stomatitis; I13.0 Hypertensive heart and chronic kidney disease with heart failure and stage 1 through stage 4 chronic kidney disease, or unspecified chronic kidney disease; K52.1 Toxic gastroenteritis and colitis; J44.1 Chronic obstructive pulmonary disease with (acute) exacerbation; N18.30 Chronic kidney disease, stage 3 unspecified; Z86.14 Personal history of Methicillin resistant Staphylococcus aureus infection; E66.01 Morbid (severe) obesity due to excess calories; E03.9 Hypothyroidism, unspecified; E87.5 Hyperkalemia; G93.2 Benign intracranial hypertension; Z98.2 Presence of cerebrospinal fluid drainage device; E78.5 Hyperlipidemia, unspecified; E11.22 Type 2 diabetes mellitus with diabetic chronic kidney disease; F39 Unspecified mood [affective] disorder; T50.995A Adverse effect of other drugs, medicaments and biological substances, initial encounter; L89.152 Pressure ulcer of sacral region, stage 2; E87.6 Hypokalemia; Z87.440 Personal history of urinary (tract) infections; Z87.891 Personal history of nicotine dependence; Z74.01 Bed confinement status; Z79.4 Long term (current) use of insulin; Z79.52 Long term (current) use of systemic steroids; Z79.890 Hormone replacement therapy; Z79.899 Other long term (current) drug therapy
CPT/HCPCS: 0241U; 36415; 71045; 80048; 80053; 80202; 81001; 82565; 82728; 82947; 83605; 83615; 83735; 85025; 85027; 85610; 85730; 86140; 87040; 87086; 87088; 87493; 93005; 94640; 99285; J0248; J1100; J1642; J1650; J2543; J3370; J8540

== ENCOUNTER → 2022-12-31 14:42 | Outpatient (BNV) | payer MEDICARE, MEDICAID, SELFPAY | PROVIDERS: Admitting Provider Student in an Organized Health Care Education/Training Program; Emergency Provider Emergency Medicine Emergency Medical Services; PCP Internal Medicine; Visit Provider Internal Medicine | DX: U07.1 COVID-19 (principal) | CPT/HCPCS: 99222; 99232 ==

== ENCOUNTER → 2022-12-31 14:42 | Outpatient (BNV) | payer MEDICARE, MEDICAID, SELFPAY | PROVIDERS: Admitting Provider Student in an Organized Health Care Education/Training Program; Emergency Provider Emergency Medicine Emergency Medical Services; PCP Internal Medicine; Visit Provider Student in an Organized Health Care Education/Training Program | DX: U07.1 COVID-19 (principal); J96.01 Acute respiratory failure with hypoxia | CPT/HCPCS: 99223; 99232; 99233; 99239 ==

== ENCOUNTER 2023-01-31 01:37 | Emergency (ER) | payer MEDICARE, MEDICAID, SELFPAY ==
--- NOTE | 2023-01-31 | ECG_ITS ---
Test Reason : RESPIRATORY DISTRESS Blood Pressure : / mmHG Vent. Rate : 068 BPM Atrial Rate : 000 BPM P-R Int : 000 ms QRS Dur : 110 ms QT Int : 448 ms P-R-T Axes : 000 087 -03 degrees QTc Int : 476 ms Accelerated Normal sinus rhythm with 1st degree A-V block Intra-ventricular conduction delay Nonspecific T wave abnormality Inferior leads Abnormal ECG When compared with ECG of 31-DEC-2022 15:14, TN interval has increased Referred By: Romeo Street Electronically Signed By:YONIS EVANS MD
--- NOTE | ~2023-01-31 | XR_ITS ---
EXAMINATION: XR CHEST CLINICAL INFORMATION: Shortness of breath COMPARISON: 12/31/2022 TECHNIQUE: Frontal view of the chest was obtained. FINDINGS: Right IJ port catheter tip in the region of the distal SVC. Suboptimal assessment due to patient rotation. Persistent regions of hazy opacification towards the lung bases. Central vascular congestion appears similar to slightly worsened from prior. No appreciable pneumothorax. Small pleural effusions are suspected. Cardiac silhouette remains prominent, not well evaluated due to patient rotation. Calcification is present at the aortic arch. No acute osseous findings are seen. XR/XR chest 1V IMPRESSION: Persistent bibasilar opacities and central vascular congestion, similar to slightly worsened from prior with suspected edema.
[2023-01-31 01:41] VITALS: BP 144/70; PULSE 71; BMI 40.7
[2023-01-31 01:45] VITALS: BP 106/42; PULSE 68; RESP 20; TEMP 36.5; O2SAT 96
--- NOTE | 2023-01-31 01:51 | ED.SOB ---
HPI - SOB/Dyspnea General Chief Complaint: Dyspnea Stated Complaint: sob Time Seen by Provider: 01/31/23 01:39 Source: patient, family and EMS Mode of arrival: EMS Limitations: no limitations History of Present Illness HPI Narrative: [facility], no fever MD elicited complaint: shortness of breath Pertinent past history: COPD Onset (ago): hour(s) Timing: constant Severity: mild Related Data Home Medications Medication Instructions Recorded Confirmed chlordiazepoxide HCl 10 mg capsule 10 mg PO BEDTIME 10/08/21 12/31/22 citalopram 20 mg tablet 20 mg PO DAILY 10/08/21 12/31/22 insulin lispro protamine-lispro 0 unit subcut QIDACHS 10/08/21 12/31/22 100 unit/mL (75-25) subcutaneous pen levothyroxine 175 mcg tablet 175 mcg PO DAILY@0600 10/08/21 12/31/22 simvastatin 20 mg tablet 20 mg PO BEDTIME 10/08/21 12/31/22 sitagliptin phosphate 100 mg 100 mg PO DAILY 10/08/21 12/31/22 tablet (Januvia) latanoprost 0.005 % eye drops 1 drp ophthalmic (eye) BEDTIME 11/20/21 12/31/22 albuterol sulfate 0.63 mg/3 mL 0.63 mg inhalation Q2H PRN 02/16/22 12/31/22 solution for nebulization Shortness Of Breath Or Wheezing brinzolamide 1 %-brimonidine 0.2 % 1 drp ophthalmic-Right BID 02/16/22 12/31/22 eye drops,suspension (Simbrinza) ksdytbxbra-lbniwxnboggir-xswhjsya 1 tab PO Q6H PRN Headache 02/16/22 12/31/22 50 mg-325 mg-40 mg tablet coenzyme Q10 100 mg capsule 150 mg PO DAILY 02/16/22 12/31/22 (CoQ-10) insulin glargine 100 unit/mL (3 16 unit subcut BID 02/16/22 12/31/22 mL) subcutaneous pen (Lantus Solostar U-100 Insulin) melatonin 5 mg tablet 5 mg PO BEDTIME 02/16/22 12/31/22 prednisolone acetate 1 % eye 1 drp ophthalmic-Right DAILY 02/16/22 12/31/22 drops,suspension sennosides 8.6 mg tablet (senna) 17.2 mg PO DAILY PRN Constipation 02/16/22 12/31/22 timolol maleate 0.5 % eye drops 1 drp ophthalmic-Right BID 02/16/22 12/31/22 carboxymethylcellulose sodium 1 % 1 drp ophthalmic (eye) BID 03/15/22 12/31/22 eye drops (Artificial Tears (carboxymethylcellulose)) budesonide-formoterol HFA 160 2 puff inhalation BID 04/27/22 12/31/22 mcg-4.5 mcg/actuation aerosol inhaler (Symbicort) umeclidinium 62.5 mcg/actuation 1 inh inhalation DAILY 04/27/22 12/31/22 blister powder for inhalation (Incruse Ellipta) acetaminophen 325 mg tablet 650 mg PO Q4H PRN Pain (Scale 06/08/22 12/31/22 (Tylenol) Score 4-6) amlodipine 10 mg tablet 10 mg PO DAILY high blood pressure 06/08/22 12/31/22 guaifenesin 600 mg tablet, 600 mg PO BID cough 06/08/22 12/31/22 extended release 12 hr sodium phosphates 19 gram-7 118 ml HI BEDTIME PRN Constipation 06/08/22 12/31/22 gram/118 mL enema (Fleet Enema) levalbuterol HCl 1.25 mg/3 mL 1.25 mg inhalation QID 07/30/22 12/31/22 solution for nebulization biotin 5 mg tablet 5 mg PO DAILY 08/11/22 12/31/22 bisacodyl 10 mg rectal suppository 10 mg HI DAILY PRN Constipation 08/11/22 12/31/22 hydroxychloroquine 200 mg tablet 200 mg PO BID 08/11/22 12/31/22 hydroxyzine HCl 25 mg tablet 25 mg PO DAILY 08/11/22 12/31/22 lorazepam 0.5 mg tablet 0.5 mg PO BID Anxiety 08/11/22 12/31/22 magnesium 200 mg tablet 200 mg PO DAILY 08/11/22 12/31/22 riboflavin (vitamin B2) 400 mg 400 mg PO DAILY 08/11/22 12/31/22 tablet diphenhydramine-zinc acetate 2 1 appl topical BID 10/27/22 12/31/22 %-0.1 % topical cream nystatin 100,000 unit/gram topical 1 appl topical BID 10/27/22 12/31/22 powder prednisone 1 mg tablet 6 mg PO DAILY 10/27/22 12/31/22 acidophilus 100 million 1 cap PO BID 12/12/22 12/31/22 cell-pectin, citrus 10 mg capsule bumetanide 1 mg tablet 2 mg PO BID@0800,1700 12/31/22 12/31/22 Previous Rx's Medication Instructions Recorded potassium chloride 20 mEq 40 meq (2 x 20 mEq) PO DAILY #30 08/06/22 tablet,extended release(part/cryst) tabs acalabrutinib maleate 100 mg 100 mg PO Q12H #60 tabs 10/11/22 tablet (Calquence (acalabrutinib maleate)) loperamide 2 mg capsule 4 mg (2 x 2 mg) PO Q4H PRN 12/15/22 Diarrhea #30 caps fluconazole 100 mg tablet 100 mg PO DAILY #2 tabs 01/11/23 Allergies Allergy/AdvReac Type Severity Reaction Status Date / Time oxycodone [From Percocet] Allergy Intermediate Rash Verified 04/27/22 11:42 lisinopril Allergy Unknown Unknown Verified 04/27/22 11:42 metoprolol AdvReac Severe bradycardia Verified 12/13/22 10:47 Review of Systems Review of Systems: Yes all other systems are reviewed and are negative Neurologic: Denies Sensory deficit (Neuro) [facility] Past Medical History Medical History COVID Congestive heart failure CKD (chronic kidney disease) stage 3, GFR 30-59 ml/min Acute respiratory failure with hypoxia Rash Heart block AV second degree Morbid obesity Acute UTI Acute kidney injury superimposed on CKD Bradycardia Pleural effusion Acute respiratory failure Pneumonia due to COVID-19 virus Chronic lymphocytic leukemia (CLL), B-cell Dyspnea Congestive heart failure COVID-19 Hypoxia Influenza A CLL (chronic lymphocytic leukemia) Suspected deep tissue injury Klebsiella pneumonia Infection with ESBL Klebsiella oxytoca Lymphadenopathy, mediastinal Pleural effusion Congestive heart failure Essential hypertension COVID Lower extremity edema Migraine HTN (hypertension) Pseudotumor cerebri PVD (peripheral vascular disease) Obesity CKD (chronic kidney disease) Diabetes mellitus with insulin therapy Hypothyroidism HLD (hyperlipidemia) Surgical History S/P appendectomy H/O cataract extraction H/O hysterectomy for benign disease Hx of cholecystectomy Family History Family History Mother Heart attack, Onset Age: 92 Father Heart attack, Onset Age: 66 Other Diabetes Social History Social History Household Members: Family Household Members Other:: patient came from a rehab facility, been there since dec Housing: House Do you presently have visiting nurse or other home services: No Alcohol intake: former Patient Tobacco Use Status: Former Tobacco user Smoked in Last 30 Days: No Second Hand Smoke Exposure: No Advance Directives Date on File: 09/26/20 service: No Current occupational status: disabled Physical Exam Vital Signs: Vital Signs: Last Vital Signs Temp 97.7 F 01/31/23 01:45 Pulse 68 01/31/23 02:07 Resp 24 H 01/31/23 02:07 BP 106/42 L 01/31/23 01:45 Pulse Ox 96 01/31/23 01:45 O2 Del Method Nasal Cannula 01/31/23 01:45 O2 Flow Rate 2 01/31/23 01:45 BMI result Body Mass Index 40.7 Const: Other: obese female looking much older than stated age, short of breath with some abdominal breathing Orientation/consciousness: oriented to person Limitations: no limitations HEENT: Head: Yes normal to inspection Ears: external ears normal General nose exam: Normal external nose present Mouth: Normal oral and palatal mucosa present and oropharynx normal Throat: Yes posterior oropharynx normal Eyes: General: appearance normal, both eyes and all related structures Neck: Other: supple Neck: Yes normal visual inspection Chest: Chest palpation & inspection: normal inspection of the chest Resp: Other: distant, crackles and some wheezing Cardio: Jugular venous distension: no JVD Rate: regular rate Rhythm: regular rhythm Heart sounds: S1 normal heart sound present and S2 normal heart sound present GI: Inspection: Yes normal to inspection Palpation (GI): Soft to palpation, nontender and No hepatosplenomegaly present Auscultation: normal bowel sounds : General: Yes no CVA tenderness Back/Spine/Pelvis: Back: no CVA tenderness Skin: General skin exam: no rashes or lesions noted Neuro: General: oriented to person Cranial nerves: Yes CN's II-XII intact bilaterally Motor exam (neuro): 5/5 motor strength present throughout Sensory Exam: No Sensory deficit (Neuro) Extrem: Other: edematous legs, swollen arms Psych: Appearance: grossly normal Course Reevaluation(s) Reevaluation #1: patient known well to respiratory and nursing states this is her baseline. VBG shows slight CO2 retention close to her baseline, CXR with no great change, patient saturating well on 2L after breathing treatment. Will dc home. With slight bump in BNP and slight congestion on xray will give an extra push of lasix Time: 02:59 Medications Administered Discontinued Medications Generic Name Dose Route Start Last Admin Trade Name Freq PRN Reason Stop Dose Admin Albuterol Sulfate 2.5 mg/ 5 mg 01/31/23 01:59 01/31/23 02:07 Albuterol Sulfate 2.5 mg INHALE 01/31/23 02:00 5 mg ONCE ONE Administration Medical Decision Making Differential Diagnosis Differential Diagnoses: The differential diagnosis associated with the presentation includes (COPD exacerbation, CHF, pneumonia were all considered) Admission/Observation Consideration of admission/observation: Escalation of care including admission/observation considered (upon arrival patient was considered for admission) Lab Data MDM Lab Attestation statement: I reviewed the patient's lab results. (potassium, renal function, VBG all at baseline. Slight bump in BNP) 01/31/23 02:15 01/31/23 02:15 Labs: Lab Results 01/31/23 01/31/23 Range/Units 02:15 02:20 WBC 10.6 (4.8-10.8) X10*3/uL RBC 3.03 L (4.20-5.50) X10*6/uL Hgb 7.6 L (12.0-16.0) g/dl Hct 26.0 L (37.0-47.0) % MCV 85.8 (80.0-98.0) fL MCH 25.1 L (27.0-33.0) pg MCHC 29.2 L (31.0-35.0) g/dl RDW 14.8 (11.0-16.0) % Plt Count 274 D (160-400) X10*3/uL MPV 11.7 (9.4-12.3) fL Immature Gran % (Auto) 2.0 H (0.0-0.4) % Neut % (Auto) 80.2 H (45-73) % Lymph % (Auto) 7.6 L (20-40) % Traverse % (Auto) 7.4 (2-11) % Eos % (Auto) 2.2 (0-4) % Baso % (Auto) 0.6 (0-2) % Lymph # (Auto) 0.8 L (1.2-4.9) X10*3/uL Traverse # (Auto) 0.8 (0.1-1.2) X10*3/uL Eos # (Auto) 0.2 (0.0-0.4) X10*3/uL Baso # (Auto) 0.1 (0.0-0.2) X10*3/uL Abs Immat Gran (auto) 0.21 H (0.00-0.03) X10*3/uL Absolute Neuts (auto) 8.5 H (2.0-8.3) x10*3/uL Absolute Nucleated RBC 0.000 (0.0-0.012) X10*3/uL Nucleated RBC % (auto) 0.0 (0.0-0.2) /100WBC VBG pH 7.32 (7.32-7.43) VBG pCO2 66 mmHg VBG pO2 116 mmHg VBG HCO3 35 H (22-26) mmol/L VBG O2 Saturation 99.0 % VBG Base Excess 7.9 mmol/L Sodium 138 (135-145) mmol/L Potassium 5.2 H D (3.3-5.1) mmol/L Chloride 101 (96-108) mmol/L Carbon Dioxide 28 (22-29) mmol/L Anion Gap 14 (12-20) BUN 37 H (9-16) mg/dL Creatinine 1.72 H (0.5-1.4) mg/dL Estim Creat Clear Calc 38.5 Estimated GFR 29 Random Glucose 300 H (60-115) mg/dL Calcium 8.6 (8.4-10.2) mg/dL Troponin I High Sens 9.7 (<3.5-17.0) ng/L B-Natriuretic Peptide 1331 H (<100) pg/mL Independent Interpretation I performed an independent interpretation of an: Plain X-Ray (CXR: chronic changes) Radiology Impression Discussion of test interpretation with radiology: I have reviewed the radiologist's reading. (reading states slight congestion) Independent Historian Clinical information obtained from an independent historian. History obtained from or confirmed by: Other (niece) External Record Review External record reviewed: Outpatient record and Prior outpatient labs Tests considered The following testing was considered but not selected: CT of chest considered but patient is at baseline Prescription Management I considered prescription management with: Antibiotic (no pneumonia on xray) Chronic Conditions Patient?s care impacted by: Other (COPD, CHF) Discharge Plan Discharge Clinical Impression: COPD exacerbation, Congestive heart failure Patient Disposition: Home, Self-Care Instructions: Heart Failure (ED), COPD (Chronic Obstructive Pulmonary Disease) (ED) Prescriptions: No Action levothyroxine 175 mcg tablet 175 mcg PO DAILY@0600 citalopram 20 mg tablet 20 mg PO DAILY simvastatin 20 mg tablet 20 mg PO BEDTIME chlordiazepoxide HCl 10 mg capsule 10 mg PO BEDTIME insulin lispro protamin-lispro 100 unit/mL (75-25) insulin pen 0 unit subcut QIDACHS Protocol: Insulin Correction Scale Less than or equal to 110 ---- Give (units): 0 111 to 150 Give (units): 0 151 to 200 Give (units): 2 201 to 250 Give (units): 4 251 to 300 Give (units): 6 301 to 350 Give (units): 8 Greater than 350 Give (units): 10 Call MD if Blood Glucose > : 350 Januvia 100 mg tablet 100 mg PO DAILY Fleet Enema 19-7 gram/118 mL Enema 118 ml HI BEDTIME PRN (Reason: Constipation) guaifenesin 600 mg Tablet Extended Release 12hr 600 mg PO BID acetaminophen [Tylenol] 325 mg Tablet 650 mg PO Q4H PRN (Reason: Pain (Scale Score 4-6)) amlodipine 10 mg tablet 10 mg PO DAILY lorazepam 0.5 mg tablet 0.5 mg PO BID bisacodyl 10 mg Suppository 10 mg HI DAILY PRN (Reason: Constipation) hydroxyzine HCl 25 mg tablet 25 mg PO DAILY hydroxychloroquine 200 mg tablet 200 mg PO BID magnesium 200 mg Tablet 200 mg PO DAILY biotin 5 mg Tablet 5 mg PO DAILY riboflavin (vitamin B2) 400 mg Tablet 400 mg PO DAILY Calquence (acalabrutinib mal) 100 mg Tablet 100 mg PO Q12H Qty: 60 3RF Incruse Ellipta 62.5 mcg/actuation Blister With Device 1 inh INHALATION DAILY budesonide-formoterol [Symbicort] 160-4.5 mcg/actuation Hfa Aerosol Inhaler 2 puff INHALATION BID latanoprost 0.005 % drops 1 drp ophthalmic (eye) BEDTIME Rx Instructions: 1 drop into both eyes albuterol sulfate 0.63 mg/3 mL Solution For Nebulization 0.63 mg INHALATION Q2H PRN (Reason: Shortness Of Breath Or Wheezing) sennosides [senna] 8.6 mg Tablet 17.2 mg PO DAILY PRN (Reason: Constipation) bsjjcyyuol-tyxdxzjrjsqlt-ifkc 50-325-40 mg tablet 1 tab PO Q6H PRN (Reason: Headache) prednisolone acetate 1 % drops,suspension 1 drp ophthalmic-Right DAILY timolol maleate 0.5 % drops 1 drp ophthalmic-Right BID coenzyme Q10 [CoQ-10] 100 mg Capsule 150 mg PO DAILY melatonin 5 mg Tablet 5 mg PO BEDTIME Simbrinza 1-0.2 % drops,suspension 1 drp ophthalmic-Right BID insulin glargine [Lantus Solostar U-100 Insulin] 100 unit/mL (3 mL) insulin pen 16 unit subcut BID Hold Instructions: Resume on 05/10/22. Artificial Tears (cmc) 1 % Drops 1 drp OPHTHALMIC (EYE) BID levalbuterol HCl 1.25 mg/3 mL Solution For Nebulization 1.25 mg INHALATION QID potassium chloride 20 mEq Tablet,Er Particles/Crystals 40 meq PO DAILY Qty: 30 0RF diphenhydramine-zinc acetate 2-0.1 % Cream 1 appl TOPICAL BID Rx Instructions: apply to groin/coccyx prednisone 1 mg Tablet 6 mg PO DAILY nystatin 100,000 unit/gram Powder 1 appl TOPICAL BID acidophilus-pectin, citrus 100 million cell-10 mg Capsule 1 cap PO BID loperamide 2 mg Capsule 4 mg PO Q4H PRN (Reason: Diarrhea) Qty: 30 0RF bumetanide 1 mg tablet 2 mg PO BID@0800,1700 Protocol: Hold for SBP< HOLD for SBP < : 90 fluconazole 100 mg Tablet 100 mg PO DAILY Qty: 2 0RF Referrals: Physician,Nonstaff [Physician] - 3 days
[2023-01-31 02:07] VITALS: PULSE 68; RESP 24; O2SAT 98
[2023-01-31] MEDS: Albuterol Sulfate 2.5 MG, Albuterol Sulfate (0.083%) 2.5 MG 5 MG INHALE (02:07)
--- NOTE | 2023-01-31 02:16 | PC.NURSE ---
pt came in with EMS on non rebreather at 15 L sating 98 , resp immediatly at bedside with provider. Pt sating 92 on 2L. Port in place per XRAy and labs are drawn from there. Pt calm, cooperative, alert and oriented
[2023-01-31 02:21] LABS: MANUAL DIFF FLAG NO
[2023-01-31 02:22] LABS: Basophils Absolute Auto 0.1 X10*3/uL (0.0-0.2); Basophils Percent Auto 0.6 % (0-2); Eosinophils Absolute Auto 0.2 X10*3/uL (0.0-0.4); Eosinophils Percent Auto 2.2 % (0-4); Hemoglobin 7.6 g/dl (12.0-16.0); Imm Gran Abs Auto 0.21 X10*3/uL (0.00-0.03); Lymphocytes Absolute Auto 0.8 X10*3/uL (1.2-4.9); Lymphocytes Percent Auto 7.6 % (20-40); Mean Corpuscular HGB Conc 29.2 g/dl (31.0-35.0); Mean Corpuscular Hemoglobin 25.1 pg (27.0-33.0); Mean Corpuscular Volume 85.8 fL (80.0-98.0); Mean Platelet Volume 11.7 fL (9.4-12.3); Monocytes Absolute Auto 0.8 X10*3/uL (0.1-1.2); Monocytes Percent Auto 7.4 % (2-11); Neutrophils Absolute Auto 8.5 x10*3/uL (2.0-8.3); Neutrophils Percent Auto 80.2 % (45-73); Platelet Count 274 X10*3/uL (160-400); Red Blood Count 3.03 X10*6/uL (4.20-5.50); Red Cell Distribution Width 14.8 % (11.0-16.0); White Blood Count 10.6 X10*3/uL (4.8-10.8)
[2023-01-31 02:26] LABS: VBG Base Excess 7.9 mmol/L; VBG HCO3 35 mmol/L (22-26); VBG pCO2 66 mmHg; VBG pH 7.32 (7.32-7.43); VBG pO2 116 mmHg
[2023-01-31 02:27] LABS: Venous Blood Gas Refer to POC result
[2023-01-31 02:35] LABS: Anion Gap 14 (12-20); Blood Urea Nitrogen 37 mg/dL (9-16); Calcium 8.6 mg/dL (8.4-10.2); Carbon Dioxide 28 mmol/L (22-29); Chloride 101 mmol/L (96-108); Creatinine Clr Calc Pharmacy 38.5; Estimated Glomerular Filt Rate 29; Glucose Random 300 mg/dL (60-115); Potassium 5.2 mmol/L (3.3-5.1); Sodium 138 mmol/L (135-145)
[2023-01-31 02:44] LABS: Troponin-I High Sensitivity 9.7 ng/L (<3.5-17.0)
[2023-01-31 02:47] LABS: B Type Natriuretic Peptide 1331 pg/mL (<100)
[2023-01-31 03:15] VITALS: BP 104/40; PULSE 65; RESP 16; O2SAT 94
[2023-01-31] MEDS: Furosemide 100 MG/10 ML VIAL 60 MG IVPUSH (03:32)
--- NOTE | 2023-01-31 03:36 | PC.NURSE ---
called nurse to nurse report at [facility]
--- NOTE | 2023-01-31 04:23 | PC.NURSE ---
report given to ems
== END 2023-01-31 04:24 | disposition home or self-care (01) ==
LOC: HO.ED 03:15
PROVIDERS: Emergency Provider Emergency Medicine; PCP Internal Medicine
DX: J44.1 Chronic obstructive pulmonary disease with (acute) exacerbation (principal); I50.9 Heart failure, unspecified; R06.02 Shortness of breath; Z79.899 Other long term (current) drug therapy
CPT/HCPCS: 36415; 71045; 80048; 82803; 83880; 84484; 85025; 93005; 94640; 96374; 99284; 99285; J1940

== ENCOUNTER 2023-02-07 08:03 | Outpatient (REF) | payer MEDICARE, OTHER, SELFPAY ==
[2023-02-07 06:13] LABS: MANUAL DIFF FLAG NO
[2023-02-07 07:04] LABS: Basophils Absolute Auto 0.1 X10*3/uL (0.0-0.2); Basophils Percent Auto 0.5 % (0-2); Eosinophils Absolute Auto 0.4 X10*3/uL (0.0-0.4); Eosinophils Percent Auto 2.3 % (0-4); Hematocrit 26.7 % (37.0-47.0); Hemoglobin 7.5 g/dl (12.0-16.0); Imm Gran Abs Auto 0.49 X10*3/uL (0.00-0.03); Imm Gran Pct Auto 3.2 % (0.0-0.4); Lymphocytes Absolute Auto 1.8 X10*3/uL (1.2-4.9); Lymphocytes Percent Auto 11.4 % (20-40); Mean Corpuscular HGB Conc 28.1 g/dl (31.0-35.0); Mean Corpuscular Hemoglobin 24.7 pg (27.0-33.0); Mean Corpuscular Volume 87.8 fL (80.0-98.0); Mean Platelet Volume 12.3 fL (9.4-12.3); Monocytes Absolute Auto 1.5 X10*3/uL (0.1-1.2); Monocytes Percent Auto 9.5 % (2-11); Neutrophils Absolute Auto 11.4 x10*3/uL (2.0-8.3); Neutrophils Percent Auto 73.1 % (45-73); Platelet Count 249 X10*3/uL (160-400); Red Blood Count 3.04 X10*6/uL (4.20-5.50); Red Cell Distribution Width 15.6 % (11.0-16.0); White Blood Count 15.5 X10*3/uL (4.8-10.8)
[2023-02-07 07:15] LABS: Alanine Aminotransferase 7 U/L (0-31); Albumin Level 2.6 g/dL (3.5-5.0); Alkaline Phosphatase 62 U/L (39-117); Anion Gap 12 (12-20); Aspartate Amino Transferase 11 U/L (5-31); Bilirubin Total 0.2 mg/dL (0.0-1.0); Blood Urea Nitrogen 32 mg/dL (9-16); Calcium 8.7 mg/dL (8.4-10.2); Carbon Dioxide 28 mmol/L (22-29); Chloride 106 mmol/L (96-108); Estimated Glomerular Filt Rate 34; Glucose Random 61 mg/dL (60-115); Potassium 4.2 mmol/L (3.3-5.1); Sodium 142 mmol/L (135-145); Total Protein 5.8 g/dL (6.5-8.0)
== END 2023-02-07 08:04 | disposition home or self-care (01) ==
LOC: HO.MMNH2L 08:03
PROVIDERS: Visit Provider Family Medicine
DX: Z13.89 Encounter for screening for other disorder (principal)
CPT/HCPCS: 36415; 80053; 85025

== ENCOUNTER 2023-02-07 08:04 | Outpatient (REF) | payer SELFPAY | END 2023-02-07 08:05 | disposition home or self-care (01) | LOC: HO.MMNH2L 08:04 | PROVIDERS: Visit Provider Family Medicine | DX: Z13.89 Encounter for screening for other disorder (principal) ==

== ENCOUNTER 2023-02-08 00:45 | Inpatient (IN) | payer MEDICARE, MEDICAID, SELFPAY ==
[2023-02-08] VITALS (14 sets, daily range): BP systolic 85–122; BP diastolic 34–63; PULSE 62–70; RESP 16–25; TEMP 36.1–36.6; O2SAT 92–100; BMI 44.1
--- NOTE | ~2023-02-08 | XR_ITS ---
EXAMINATION: XR CHEST CLINICAL INFORMATION: Dyspnea. COMPARISON: 01/31/2023. TECHNIQUE: Frontal view of the chest was obtained. FINDINGS: The lung volumes are low and the patient is rotated. The cardiomediastinal silhouette is grossly stable. A Mediport is noted in a stable position. There is pulmonary vascular congestion, diffuse increased markings and faint diffuse lung opacities. There is an apparent layering left mid to lower lung field opacity with elevation of the left hemidiaphragm. The bony structures and soft tissues are unremarkable. XR/XR chest 1V IMPRESSION: Pulmonary vascular congestion, diffuse increased markings and faint diffuse lung opacities most consistent with fluid overload and/or congestive heart failure with interstitial and pulmonary edema. Layering left mid to lower lung field opacity likely a left pleural effusion with atelectasis and/or infiltrate associated with elevation of the left hemidiaphragm.
--- NOTE | ~2023-02-08 | XR_ITS ---
EXAMINATION: XR CHEST CLINICAL INFORMATION: Hypoxemia COMPARISON: 02/08/2023 TECHNIQUE: Frontal view of the chest was obtained. FINDINGS: Right internal jugular port with internal tip remaining in the superior vena cava. Enlarged cardiac silhouette and mediastinum. Mitral annular calcifications. Aortic calcifications again seen. Mild improvement vascular congestion. Persistent increased markings right medial base and right costophrenic angle blunting. Persistent opacity left mid to lower hemithorax obscuring the heart border and hemidiaphragm. Bony structures are intact. XR/XR chest 1V IMPRESSION: Mild improvement in vascular congestion. Likely persistent effusions, left greater than right. Basilar atelectasis, underlying consolidations not excluded.
--- NOTE | 2023-02-08 01:02 | ECG_ITS ---
Test Reason : DYSPENIA Blood Pressure : / mmHG Vent. Rate : 061 BPM Atrial Rate : 061 BPM P-R Int : 212 ms QRS Dur : 112 ms QT Int : 446 ms P-R-T Axes : 000 100 004 degrees QTc Int : 448 ms Sinus rhythm with 1st degree A-V block Rightward axis Intra-ventricular conduction delay Abnormal ECG When compared with ECG of 31-JAN-2023 01:50, Questionable change in initial forces of Anteroseptal leads Referred By: Generic ED Physician Electronically Signed By:YONIS EVANS MD
--- NOTE | 2023-02-08 01:49 | ED_ITS ---
HPI - SOB/Dyspnea General Chief Complaint: Dyspnea Stated Complaint: SOB Time Seen by Provider: 02/08/23 01:46 Source: family (Niece, Patricia) Mode of arrival: EMS Limitations: other (Patient lacks insight as to why she is here, information was obtained from her niece) History of Present Illness HPI Narrative: 72-year-old female past medical history for chronic kidney disease, HFpEF, CLL, COPD diabetes mellitus, LATONYA, obesity, hypertension, hyperlipidemia, peripheral vascular disease hypothyroidism, ESBL E coli, MRSA bacteremia sent to the emergency department from her [facility] for evaluation of shortness of breath and difficulty breathing. Information came from the patient's niece, Patricia. Early yesterday morning the patient was short of breath but then her symptoms improved. At 17:30 hours yesterday she again became short of breath, she is on chronic oxygen but her O2 saturation dropped 82% and she was given a nebulizer. Her O2 saturation increased to 90% on 4 L. at 22:45 hours her O2 saturation dropped to 60%, nursing facility was concerned and sent the patient to the emergency department for evaluation. In reviewing the patient's in-patient record, she was admitted from 01/30/2023 until 01/11/2023 for COVID and acute respiratory failure failure with hypoxia. She was treated with Zosyn and vancomycin. Prior to that admission the patient was diagnosed with E coli ESBL and MRSA bacteremia treated with 28 days of vancomycin. Related Data Home Medications Medication Instructions Recorded Confirmed chlordiazepoxide HCl 10 mg capsule 10 mg PO BEDTIME 10/08/21 12/31/22 citalopram 20 mg tablet 20 mg PO DAILY 10/08/21 12/31/22 insulin lispro protamine-lispro 0 unit subcut QIDACHS 10/08/21 12/31/22 100 unit/mL (75-25) subcutaneous pen levothyroxine 175 mcg tablet 175 mcg PO DAILY@0600 10/08/21 12/31/22 simvastatin 20 mg tablet 20 mg PO BEDTIME 10/08/21 12/31/22 sitagliptin phosphate 100 mg 100 mg PO DAILY 10/08/21 12/31/22 tablet (Januvia) latanoprost 0.005 % eye drops 1 drp ophthalmic (eye) BEDTIME 11/20/21 12/31/22 albuterol sulfate 0.63 mg/3 mL 0.63 mg inhalation Q2H PRN 02/16/22 12/31/22 solution for nebulization Shortness Of Breath Or Wheezing brinzolamide 1 %-brimonidine 0.2 % 1 drp ophthalmic-Right BID 02/16/22 12/31/22 eye drops,suspension (Simbrinza) dyamfieqwi-mxfpxplesvpsn-jghloysp 1 tab PO Q6H PRN Headache 02/16/22 12/31/22 50 mg-325 mg-40 mg tablet coenzyme Q10 100 mg capsule 150 mg PO DAILY 02/16/22 12/31/22 (CoQ-10) insulin glargine 100 unit/mL (3 16 unit subcut BID 02/16/22 12/31/22 mL) subcutaneous pen (Lantus Solostar U-100 Insulin) melatonin 5 mg tablet 5 mg PO BEDTIME 02/16/22 12/31/22 prednisolone acetate 1 % eye 1 drp ophthalmic-Right DAILY 02/16/22 12/31/22 drops,suspension sennosides 8.6 mg tablet (senna) 17.2 mg PO DAILY PRN Constipation 02/16/22 12/31/22 timolol maleate 0.5 % eye drops 1 drp ophthalmic-Right BID 02/16/22 12/31/22 carboxymethylcellulose sodium 1 % 1 drp ophthalmic (eye) BID 03/15/22 12/31/22 eye drops (Artificial Tears (carboxymethylcellulose)) budesonide-formoterol HFA 160 2 puff inhalation BID 04/27/22 12/31/22 mcg-4.5 mcg/actuation aerosol inhaler (Symbicort) umeclidinium 62.5 mcg/actuation 1 inh inhalation DAILY 04/27/22 12/31/22 blister powder for inhalation (Incruse Ellipta) acetaminophen 325 mg tablet 650 mg PO Q4H PRN Pain (Scale 06/08/22 12/31/22 (Tylenol) Score 4-6) amlodipine 10 mg tablet 10 mg PO DAILY high blood pressure 06/08/22 12/31/22 guaifenesin 600 mg tablet, 600 mg PO BID cough 06/08/22 12/31/22 extended release 12 hr sodium phosphates 19 gram-7 118 ml TN BEDTIME PRN Constipation 06/08/22 12/31/22 gram/118 mL enema (Fleet Enema) levalbuterol HCl 1.25 mg/3 mL 1.25 mg inhalation QID 07/30/22 12/31/22 solution for nebulization biotin 5 mg tablet 5 mg PO DAILY 08/11/22 12/31/22 bisacodyl 10 mg rectal suppository 10 mg TN DAILY PRN Constipation 08/11/22 12/31/22 hydroxychloroquine 200 mg tablet 200 mg PO BID 08/11/22 12/31/22 hydroxyzine HCl 25 mg tablet 25 mg PO DAILY 08/11/22 12/31/22 lorazepam 0.5 mg tablet 0.5 mg PO BID Anxiety 08/11/22 12/31/22 magnesium 200 mg tablet 200 mg PO DAILY 08/11/22 12/31/22 riboflavin (vitamin B2) 400 mg 400 mg PO DAILY 08/11/22 12/31/22 tablet diphenhydramine-zinc acetate 2 1 appl topical BID 10/27/22 12/31/22 %-0.1 % topical cream nystatin 100,000 unit/gram topical 1 appl topical BID 10/27/22 12/31/22 powder prednisone 1 mg tablet 6 mg PO DAILY 10/27/22 12/31/22 acidophilus 100 million 1 cap PO BID 12/12/22 12/31/22 cell-pectin, citrus 10 mg capsule bumetanide 1 mg tablet 2 mg PO BID@0800,1700 12/31/22 12/31/22 Previous Rx's Medication Instructions Recorded potassium chloride 20 mEq 40 meq (2 x 20 mEq) PO DAILY #30 08/06/22 tablet,extended release(part/cryst) tabs acalabrutinib maleate 100 mg 100 mg PO Q12H #60 tabs 10/11/22 tablet (Calquence (acalabrutinib maleate)) loperamide 2 mg capsule 4 mg (2 x 2 mg) PO Q4H PRN 12/15/22 Diarrhea #30 caps fluconazole 100 mg tablet 100 mg PO DAILY #2 tabs 01/11/23 Allergies Allergy/AdvReac Type Severity Reaction Status Date / Time oxycodone [From Percocet] Allergy Intermediate Rash Verified 02/08/23 01:02 lisinopril Allergy Unknown Unknown Verified 02/08/23 01:02 metoprolol AdvReac Severe bradycardia Verified 02/08/23 01:02 Review of Systems 2 Review of Systems: Yes Unobtainable due to mental condition [facility] Past Medical History [facility] Narrative: Social history: Patient is currently residing at [facility], she denies tobacco, alcohol and drug use Medical History COVID Congestive heart failure CKD (chronic kidney disease) stage 3, GFR 30-59 ml/min Acute respiratory failure with hypoxia Rash Heart block AV second degree Morbid obesity Acute UTI Acute kidney injury superimposed on CKD Bradycardia Pleural effusion Acute respiratory failure Pneumonia due to COVID-19 virus Chronic lymphocytic leukemia (CLL), B-cell Dyspnea Congestive heart failure COVID-19 Hypoxia Influenza A CLL (chronic lymphocytic leukemia) Suspected deep tissue injury Klebsiella pneumonia Infection with ESBL Klebsiella oxytoca Lymphadenopathy, mediastinal Pleural effusion Congestive heart failure Essential hypertension COVID Lower extremity edema Migraine HTN (hypertension) Pseudotumor cerebri PVD (peripheral vascular disease) Obesity CKD (chronic kidney disease) Diabetes mellitus with insulin therapy Hypothyroidism HLD (hyperlipidemia) Surgical History S/P appendectomy H/O cataract extraction H/O hysterectomy for benign disease Hx of cholecystectomy Family History Family History Mother Heart attack, Onset Age: 92 Father Heart attack, Onset Age: 66 Other Diabetes Social History Social History Household Members: Family Household Members Other:: patient came from a rehab facility, been there since dec Housing: House Do you presently have visiting nurse or other home services: No Alcohol intake: former Patient Tobacco Use Status: Former Tobacco user Smoked in Last 30 Days: No Second Hand Smoke Exposure: No Use of substances other than those prescribed or required for medical reasons: No Advance Directives: Yes Advance Directives on File: Yes Advance Directives Date on File: 09/26/20 Nutrition Risks: No Nutritional Risk service: No Current occupational status: disabled Physical Exam 2 Vital Signs: Vital Signs: Last Vital Signs Temp 97.7 F 02/08/23 05:06 Pulse 63 02/08/23 05:06 Resp 24 H 02/08/23 05:06 BP 122/63 02/08/23 05:06 Pulse Ox 95 02/08/23 05:06 O2 Del Method Nasal Cannula 02/08/23 05:06 O2 Flow Rate 4 02/08/23 05:06 Oxygen Flow Rate 3 02/08/23 00:58 BMI result Body Mass Index 44.1 Vital signs revealed elevated respiratory rate of 25, O2 saturation of 95% on 4 L via nasal cannula Exam General: Awake, female patient see a tachypnea, is oriented to person but lacks insight as to why she is here Head: Normocephalic, atraumatic EENT: PERRL, Lids normal, sclera normal, conjunctiva normal, nose normal , ears normal, throat without erythema or exudates Neck: Supple, no adenopathy, no trachea midline or C-spine tenderness Lung: breath diminished bilaterally, diffuse rales and rhonchi with no wheezing Chest: symmetric movement, nontender. Chavez catheter right chest wall. Heart: regular rate and rhythm, normal S1, S2 no murmurs or rubs Abdomen: soft, obese, non-tender, nondistended, normal bowel sounds Back: no vertebral tenderness, no CVAT Extremities: no deformities, moves all extremities symmetrically Skin: Patient has multiple areas of ecchymosis in her upper and lower extremities Neuro: Awake, oriented to person, lacks insight as to why she is here Psych: Pleasant, cooperative Medications Administered Discontinued Medications Generic Name Dose Route Start Last Admin Trade Name Freq PRN Reason Stop Dose Admin Furosemide 80 mg 02/08/23 02:28 02/08/23 02:47 Furosemide 100 Mg/10 Ml Vial IVPUSH 02/08/23 02:29 80 mg ONCE ONE Administration Protocol Medical Decision Making Medical Decision Making [facility] Narrative: 72-year-old female past medical history for chronic kidney disease, HFpEF, CLL, COPD diabetes mellitus, LATONYA, obesity, hypertension, hyperlipidemia, peripheral vascular disease hypothyroidism, ESBL E coli, MRSA bacteremia sent to the emergency department from her penitentiary facility [facility] for evaluation of shortness of breath and difficulty breathing which began yesterday morning got worse prior to transfer to the emergency department.. Information came from the patient's niece, Patricia. Patient's O2 saturation was 60% on 4 L of oxygen via nasal cannula prior to coming to the emergency department. Following evaluation was ordered: CBC, CMP, BMP, troponin, chest x-ray one view, EKG. 02:38 Patient's chest x-ray is consistent with congestive heart failure, EKG was unremarkable pain Laboratory evaluation from yesterday morning was consistent with her chronic anemia in chronic kidney disease, blood work from this morning is pending Patient was ordered to get Lasix 80 mg IV. I did discuss the patient's presentation with the covering hospitalist, Dr. Hand and patient will be admitted for further management. Differential Diagnosis Differential Diagnoses: The differential diagnosis associated with the presentation includes 02:33 Differential diagnosis includes was not limited to COPD exacerbation, pneumonia, congestive heart failure Admission/Observation Consideration of admission/observation: Escalation of care including admission/observation considered Consult Healthcare Provider Management of the patient was discussed with: Hospitalist Lab Data MDM Lab Attestation statement: I reviewed the patient's lab results. My independent interpretation patient's laboratory evaluation is as follows: Elevated WBC [id number] is chronic. VBG pH was normal at 7.41, pCO2 elevated at 56 but similar values in the past. BUN and creatinine elevated 34 and 1.59 consistent with her chronic kidney disease. Glucose elevated 146. Potassium elevated 5.4. Bicarb elevated 30. Troponin elevated at detectable but not elevated at 14.1. Patient has had similar elevations in the past as well as higher values the past as well. BNP elevated 824. 02/08/23 05:01 02/08/23 05:01 Labs: Lab Results 02/08/23 02/08/23 Range/Units 02:42 02:48 WBC 16.2 H (4.8-10.8) X10*3/uL RBC 2.88 L (4.20-5.50) X10*6/uL Hgb 7.2 L (12.0-16.0) g/dl Hct 25.3 L (37.0-47.0) % MCV 87.8 (80.0-98.0) fL MCH 25.0 L (27.0-33.0) pg MCHC 28.5 L (31.0-35.0) g/dl RDW 15.6 (11.0-16.0) % Plt Count 250 (160-400) X10*3/uL MPV 11.4 (9.4-12.3) fL Immature Gran % (Auto) 2.6 H (0.0-0.4) % Neut % (Auto) 74.9 H (45-73) % Lymph % (Auto) 10.4 L (20-40) % [place] % (Auto) 10.3 (2-11) % Eos % (Auto) 1.4 (0-4) % Baso % (Auto) 0.4 (0-2) % Lymph # (Auto) 1.7 (1.2-4.9) X10*3/uL [place] # (Auto) 1.7 H (0.1-1.2) X10*3/uL Eos # (Auto) 0.2 (0.0-0.4) X10*3/uL Baso # (Auto) 0.1 (0.0-0.2) X10*3/uL Abs Immat Gran (auto) 0.42 H (0.00-0.03) X10*3/uL Absolute Neuts (auto) 12.1 H (2.0-8.3) x10*3/uL Absolute Nucleated RBC 0.020 H (0.0-0.012) X10*3/uL Nucleated RBC % (auto) 0.1 (0.0-0.2) /100WBC Smear Tech's Comments VERIFIED VBG pH 7.41 (7.32-7.43) VBG pCO2 56 mmHg VBG pO2 44 mmHg VBG HCO3 35 H (22-26) mmol/L VBG O2 Saturation Not Reportable VBG Base Excess 9.8 mmol/L Sodium 144 (135-145) mmol/L Potassium 5.4 H D (3.3-5.1) mmol/L Chloride 107 (96-108) mmol/L Carbon Dioxide 30 H (22-29) mmol/L Anion Gap 12 (12-20) BUN 34 H (9-16) mg/dL Creatinine 1.59 H (0.5-1.4) mg/dL Estim Creat Clear Calc 39.2 Estimated GFR 32 Random Glucose 163 H (60-115) mg/dL Calcium 8.6 (8.4-10.2) mg/dL Total Bilirubin 0.2 (0.0-1.0) mg/dL AST 11 (5-31) U/L ALT 7 (0-31) U/L Alkaline Phosphatase 62 (39-117) U/L Troponin I High Sens 14.1 (<3.5-17.0) ng/L B-Natriuretic Peptide 824 H (<100) pg/mL Total Protein 5.7 L (6.5-8.0) g/dL Albumin 2.6 L (3.5-5.0) g/dL Independent Interpretation I performed an independent interpretation of an: EKG Interpretation: My independent interpretation patient's 12 EKG is as follows: Sinus rhythm with a first-degree AV block, rate 61 TN interval 212 milliseconds, prolonged QRS of 112 milliseconds, normal QTC of 448 milliseconds, inverted T-wave in lead 3, poor R-wave progression V1 through V3, no ST segment elevation, no ST segment depression, nonspecific interventricular conduction delay Radiology Impression Discussion of test interpretation with radiology: I have reviewed the radiologist's reading. Radiologist Impression: XR chest 1V IMPRESSION: Pulmonary vascular congestion, diffuse increased markings and faint diffuse lung opacities most consistent with fluid overload and/or congestive heart failure with interstitial and pulmonary edema. Layering left mid to lower lung field opacity likely a left pleural effusion with atelectasis and/or infiltrate associated with elevation of the left hemidiaphragm. Dictated By: Roni Gates Critical Care Time Critical Care Time Critical Care Time: Yes Total Critical Care Time: 45 Attestation: Critical Care: The patient was critically ill with a high probability of imminent or life threatening deterioration. I spent greater than 30 minutes of discontinuous time evaluating the patient,delivering critical care at the bedside, discussing and evaluating pertinent data with consultants. Critical care time does not include time spent performing separately billable procedures or teaching. Total time spent performing critical care was 45 minutes. Discharge Plan Discharge Clinical Impression: Hypoxic Congestive heart failure Qualifiers: Heart failure chronicity: acute Patient Disposition: Admitted As Inpatient
[2023-02-08] MEDS: Furosemide 100 MG/10 ML VIAL 80 MG IVPUSH (02:47)
[2023-02-08 02:51] LABS: Basophils Absolute Auto 0.1 X10*3/uL (0.0-0.2); Basophils Percent Auto 0.4 % (0-2); Eosinophils Absolute Auto 0.2 X10*3/uL (0.0-0.4); Eosinophils Percent Auto 1.4 % (0-4); Hematocrit 25.3 % (37.0-47.0); Hemoglobin 7.2 g/dl (12.0-16.0); Imm Gran Abs Auto 0.42 X10*3/uL (0.00-0.03); Imm Gran Pct Auto 2.6 % (0.0-0.4); Lymphocytes Absolute Auto 1.7 X10*3/uL (1.2-4.9); Lymphocytes Percent Auto 10.4 % (20-40); MANUAL DIFF FLAG SCAN; Mean Corpuscular HGB Conc 28.5 g/dl (31.0-35.0); Mean Corpuscular Volume 87.8 fL (80.0-98.0); Mean Platelet Volume 11.4 fL (9.4-12.3); Monocytes Absolute Auto 1.7 X10*3/uL (0.1-1.2); Monocytes Percent Auto 10.3 % (2-11); NRBC Pct Auto 0.1 /100WBC (0.0-0.2); Neutrophils Absolute Auto 12.1 x10*3/uL (2.0-8.3); Neutrophils Percent Auto 74.9 % (45-73); Platelet Count 250 X10*3/uL (160-400); Red Blood Count 2.88 X10*6/uL (4.20-5.50); Red Cell Distribution Width 15.6 % (11.0-16.0); SCAN SMEAR FLAG 1; White Blood Count 16.2 X10*3/uL (4.8-10.8)
[2023-02-08 02:54] LABS: Venous Blood Gas Refer to POC result
[2023-02-08 02:56] LABS: VBG Base Excess 9.8 mmol/L; VBG HCO3 35 mmol/L (22-26); VBG pCO2 56 mmHg; VBG pH 7.41 (7.32-7.43); VBG pO2 44 mmHg
[2023-02-08 03:04] LABS: Alanine Aminotransferase 7 U/L (0-31); Albumin Level 2.6 g/dL (3.5-5.0); Alkaline Phosphatase 62 U/L (39-117); Anion Gap 12 (12-20); Aspartate Amino Transferase 11 U/L (5-31); Bilirubin Total 0.2 mg/dL (0.0-1.0); Blood Urea Nitrogen 34 mg/dL (9-16); Calcium 8.6 mg/dL (8.4-10.2); Carbon Dioxide 30 mmol/L (22-29); Chloride 107 mmol/L (96-108); Creatinine Clr Calc Pharmacy 39.2; Estimated Glomerular Filt Rate 32; Glucose Random 163 mg/dL (60-115); Potassium 5.4 mmol/L (3.3-5.1); Sodium 144 mmol/L (135-145); Total Protein 5.7 g/dL (6.5-8.0)
[2023-02-08 03:09] LABS: SLIDE REVIEW VERIFIED
[2023-02-08 03:10] LABS: B Type Natriuretic Peptide 824 pg/mL (<100); Troponin-I High Sensitivity 14.1 ng/L (<3.5-17.0)
--- NOTE | 2023-02-08 03:53 | P.HPHOSP_ITS ---
History of Present Illness Date of Service: 02/08/23 Chief Complaint: Dyspnea This is a 72-year-old female with pertinent history of congestive heart failure with preserved ejection fraction, chronic kidney disease, CLL, chronic hypoxemic respiratory failure due to COPD, obesity, obstructive sleep apnea, essential hypertension, mood disorder, hypothyroidism, insulin-dependent diabetes mellitus who presents to the emergency department for evaluation of dyspnea. Patient states it started 1 day prior to presentation. She was found to be hypoxemic at outside facility on her home O2. Does endorse orthopnea and leg swelling. No fever, chills, chest discomfort, palpitations, abdominal pain, changes in urinary or bowel habits. In the emergency department, patient was placed on supplemental oxygen and initiated on IV diuresis. Chest x-ray with pulmonary vascular congestion and pulmonary edema Review of Systems 2 Constitutional: Constitutional: Reports no additional constitutional complaints Cardiovascular: Cardiovascular: Reports dyspnea on exertion and Reports orthopnea Respiratory: Respiratory: Reports dyspnea on exertion Gastrointestinal: Gastrointestinal: Reports no additional gastrointestinal complaints Genitourinary: Genitourinary: Reports no additional female genitourinary complaints [facility] Medical History COVID Congestive heart failure CKD (chronic kidney disease) stage 3, GFR 30-59 ml/min Acute respiratory failure with hypoxia Rash Heart block AV second degree Morbid obesity Acute UTI Acute kidney injury superimposed on CKD Bradycardia Pleural effusion Acute respiratory failure Pneumonia due to COVID-19 virus Chronic lymphocytic leukemia (CLL), B-cell Dyspnea Congestive heart failure COVID-19 Hypoxia Influenza A CLL (chronic lymphocytic leukemia) Suspected deep tissue injury Klebsiella pneumonia Infection with ESBL Klebsiella oxytoca Lymphadenopathy, mediastinal Pleural effusion Congestive heart failure Essential hypertension COVID Lower extremity edema Migraine HTN (hypertension) Pseudotumor cerebri PVD (peripheral vascular disease) Obesity CKD (chronic kidney disease) Diabetes mellitus with insulin therapy Hypothyroidism HLD (hyperlipidemia) Family History Mother Heart attack, Onset Age: 92 Father Heart attack, Onset Age: 66 Other Diabetes Surgical History S/P appendectomy H/O cataract extraction H/O hysterectomy for benign disease Hx of cholecystectomy Social History Household Members: Family Household Members Other:: patient came from a rehab facility, been there since dec Housing: House Do you presently have visiting nurse or other home services: No Alcohol intake: former Patient Tobacco Use Status: Former Tobacco user Smoked in Last 30 Days: No Second Hand Smoke Exposure: No Use of substances other than those prescribed or required for medical reasons: No Advance Directives: Yes Advance Directives on File: Yes Advance Directives Date on File: 09/26/20 Nutrition Risks: No Nutritional Risk service: No Current occupational status: disabled Meds Allergies Allergy/AdvReac Type Severity Reaction Status Date / Time oxycodone [From Percocet] Allergy Intermediate Rash Verified 02/08/23 01:02 lisinopril Allergy Unknown Unknown Verified 02/08/23 01:02 metoprolol AdvReac Severe bradycardia Verified 02/08/23 01:02 Active Medications: Current Medications Bumetanide (Bumetanide 1 Mg/4 Ml Vial) 2 mg IVPUSH BID@0900,1700 ALAN; Protocol Home Medications Medication Instructions Recorded Confirmed Last Taken Type chlordiazepoxide HCl 10 mg capsule 10 mg PO BEDTIME 10/08/21 12/31/22 Unknown History citalopram 20 mg tablet 20 mg PO DAILY 10/08/21 12/31/22 Unknown History insulin lispro protamine-lispro 0 unit subcut QIDACHS 10/08/21 12/31/22 Unknown History 100 unit/mL (75-25) subcutaneous pen levothyroxine 175 mcg tablet 175 mcg PO DAILY@0600 10/08/21 12/31/22 Unknown History simvastatin 20 mg tablet 20 mg PO BEDTIME 10/08/21 12/31/22 Unknown History sitagliptin phosphate 100 mg 100 mg PO DAILY 10/08/21 12/31/22 Unknown History tablet (Januvia) latanoprost 0.005 % eye drops 1 drp ophthalmic (eye) BEDTIME 11/20/21 12/31/22 Unknown History albuterol sulfate 0.63 mg/3 mL 0.63 mg inhalation Q2H PRN 02/16/22 12/31/22 Unknown History solution for nebulization Shortness Of Breath Or Wheezing brinzolamide 1 %-brimonidine 0.2 % 1 drp ophthalmic-Right BID 02/16/22 12/31/22 Unknown History eye drops,suspension (Simbrinza) ihyfsepwbh-eoxzoprrdqecb-xyfnqclr 1 tab PO Q6H PRN Headache 02/16/22 12/31/22 Unknown History 50 mg-325 mg-40 mg tablet coenzyme Q10 100 mg capsule 150 mg PO DAILY 02/16/22 12/31/22 Unknown History (CoQ-10) insulin glargine 100 unit/mL (3 16 unit subcut BID 02/16/22 12/31/22 Unknown History mL) subcutaneous pen (Lantus Solostar U-100 Insulin) melatonin 5 mg tablet 5 mg PO BEDTIME 02/16/22 12/31/22 Unknown History prednisolone acetate 1 % eye 1 drp ophthalmic-Right DAILY 02/16/22 12/31/22 Unknown History drops,suspension sennosides 8.6 mg tablet (senna) 17.2 mg PO DAILY PRN Constipation 02/16/22 12/31/22 Unknown History timolol maleate 0.5 % eye drops 1 drp ophthalmic-Right BID 02/16/22 12/31/22 Unknown History carboxymethylcellulose sodium 1 % 1 drp ophthalmic (eye) BID 03/15/22 12/31/22 Unknown History eye drops (Artificial Tears (carboxymethylcellulose)) budesonide-formoterol HFA 160 2 puff inhalation BID 04/27/22 12/31/22 Unknown History mcg-4.5 mcg/actuation aerosol inhaler (Symbicort) umeclidinium 62.5 mcg/actuation 1 inh inhalation DAILY 04/27/22 12/31/22 Unknown History blister powder for inhalation (Incruse Ellipta) acetaminophen 325 mg tablet 650 mg PO Q4H PRN Pain (Scale 06/08/22 12/31/22 Unknown History (Tylenol) Score 4-6) amlodipine 10 mg tablet 10 mg PO DAILY high blood pressure 06/08/22 12/31/22 Unknown History guaifenesin 600 mg tablet, 600 mg PO BID cough 06/08/22 12/31/22 Unknown History extended release 12 hr sodium phosphates 19 gram-7 118 ml MI BEDTIME PRN Constipation 06/08/22 12/31/22 Unknown History gram/118 mL enema (Fleet Enema) levalbuterol HCl 1.25 mg/3 mL 1.25 mg inhalation QID 07/30/22 12/31/22 Unknown History solution for nebulization biotin 5 mg tablet 5 mg PO DAILY 08/11/22 12/31/22 Unknown History bisacodyl 10 mg rectal suppository 10 mg MI DAILY PRN Constipation 08/11/22 12/31/22 Unknown History hydroxychloroquine 200 mg tablet 200 mg PO BID 08/11/22 12/31/22 Unknown History hydroxyzine HCl 25 mg tablet 25 mg PO DAILY 08/11/22 12/31/22 Unknown History lorazepam 0.5 mg tablet 0.5 mg PO BID Anxiety 08/11/22 12/31/22 Unknown History magnesium 200 mg tablet 200 mg PO DAILY 08/11/22 12/31/22 Unknown History riboflavin (vitamin B2) 400 mg 400 mg PO DAILY 08/11/22 12/31/22 Unknown History tablet diphenhydramine-zinc acetate 2 1 appl topical BID 10/27/22 12/31/22 Unknown History %-0.1 % topical cream nystatin 100,000 unit/gram topical 1 appl topical BID 10/27/22 12/31/22 Unknown History powder prednisone 1 mg tablet 6 mg PO DAILY 10/27/22 12/31/22 Unknown History acidophilus 100 million 1 cap PO BID 12/12/22 12/31/22 Unknown History cell-pectin, citrus 10 mg capsule bumetanide 1 mg tablet 2 mg PO BID@0800,1700 12/31/22 12/31/22 Unknown History Physical Exam 2 Vital Signs and Narrative: Vital Signs: Last Vital Signs Temp 97.9 F 02/08/23 03:41 Pulse 63 02/08/23 03:41 Resp 21 H 02/08/23 03:41 BP 115/49 L 02/08/23 03:41 Pulse Ox 92 02/08/23 03:41 O2 Del Method Nasal Cannula 02/08/23 03:41 O2 Flow Rate 6 02/08/23 03:41 Oxygen Flow Rate 3 02/08/23 00:58 BMI result Body Mass Index 44.1 Elderly female lying in bed in mild distress on supplemental oxygen Neck supple Regular rate and rhythm, S1-S2 heard Bilateral crackles appreciated Abdomen soft nontender, no guarding, no rigidity Patient is awake, alert and oriented to self, place, time and person ; no focal motor deficit Psych: Normal mood Bilateral pedal edema Results Labs 02/08/23 05:01 02/08/23 05:01 Labs: Laboratory Results - last 24 hr 02/08/23 02/08/23 02:42 02:48 MCV 87.8 MCH 25.0 L MCHC 28.5 L RDW 15.6 Plt Count 250 MPV 11.4 Immature Gran % (Auto) 2.6 H Neut % (Auto) 74.9 H Lymph % (Auto) 10.4 L Taney % (Auto) 10.3 Eos % (Auto) 1.4 Baso % (Auto) 0.4 Lymph # (Auto) 1.7 Taney # (Auto) 1.7 H Eos # (Auto) 0.2 Baso # (Auto) 0.1 Abs Immat Gran (auto) 0.42 H Absolute Neuts (auto) 12.1 H Absolute Nucleated RBC 0.020 H Nucleated RBC % (auto) 0.1 Smear Tech's Comments VERIFIED VBG pH 7.41 VBG pCO2 56 VBG pO2 44 VBG HCO3 35 H VBG O2 Saturation Not Reportable VBG Base Excess 9.8 Anion Gap 12 Estim Creat Clear Calc 39.2 Estimated GFR 32 Random Glucose 163 H Calcium 8.6 Total Bilirubin 0.2 AST 11 ALT 7 Alkaline Phosphatase 62 B-Natriuretic Peptide 824 H Total Protein 5.7 L Albumin 2.6 L Imaging Radiologist's Impressions: Impressions Chest X-Ray 02/08/23 01:17 IMPRESSION: Pulmonary vascular congestion, diffuse increased markings and faint diffuse lung opacities most consistent with fluid overload and/or congestive heart failure with interstitial and pulmonary edema. Layering left mid to lower lung field opacity likely a left pleural effusion with atelectasis and/or infiltrate associated with elevation of the left hemidiaphragm. Assessment and Plan (1) Congestive heart failure: Qualifiers: Heart failure chronicity: acute Status: Acute (2) Hypoxic: Status: Acute Plan This is a 72-year-old female with pertinent history of congestive heart failure with preserved ejection fraction, chronic kidney disease, CLL, chronic hypoxemic respiratory failure due to COPD, obesity, obstructive sleep apnea, essential hypertension, mood disorder, hypothyroidism, insulin-dependent diabetes mellitus who presents to the emergency department for evaluation of dyspnea. #. Acute on chronic hypoxemic respiratory failure due to acute on chronic congestive heart failure with preserved ejection fraction: Will admit patient and initiate IV diuresis. Strict I's and O's. Obtaining echocardiogram. Low- salt diet. #. Chronic kidney disease: Creatinine at baseline. Monitor with diuresis. Avoid nephrotoxins #. Essential hypertension: Continue home antihypertensives #. COPD: Continue home inhalers #. Morbid obesity: Recommend low-calorie diet. #. Hypothyroidism: On Synthroid #. CLL: Continue chronic prednisone #. Insulin-dependent diabetes mellitus: Basal plus insulin regimen #. Mood disorder: Continue home mood stabilizers #. Mixed hyperlipidemia: On statin Med rec pending DVT prophylaxis: Lovenox Admit as inpatient and will require two night minimum hospital stay for supplemental oxygen and IV diuresis Quality Stroke Does the patient have a stroke diagnosis?: No VTE Prior VTE?: No VTE Risk Level:: Medical - moderate - high VTE Device Contraindication: Treatment Not Indicated VTE Drug Contraindication: N/A - Med Ordered
[2023-02-08 05:44] LABS: Basophils Absolute Auto 0.1 X10*3/uL (0.0-0.2); Basophils Percent Auto 0.5 % (0-2); Eosinophils Absolute Auto 0.3 X10*3/uL (0.0-0.4); Eosinophils Percent Auto 1.6 % (0-4); Hematocrit 24.8 % (37.0-47.0); Hemoglobin 7.1 g/dl (12.0-16.0); Imm Gran Pct Auto 2.5 % (0.0-0.4); Lymphocytes Absolute Auto 1.7 X10*3/uL (1.2-4.9); Lymphocytes Percent Auto 10.8 % (20-40); MANUAL DIFF FLAG SCAN; Mean Corpuscular HGB Conc 28.6 g/dl (31.0-35.0); Mean Corpuscular Hemoglobin 25.4 pg (27.0-33.0); Mean Corpuscular Volume 88.6 fL (80.0-98.0); Mean Platelet Volume 11.9 fL (9.4-12.3); Monocytes Absolute Auto 1.7 X10*3/uL (0.1-1.2); Monocytes Percent Auto 10.6 % (2-11); NRBC Pct Auto 0.2 /100WBC (0.0-0.2); Neutrophils Absolute Auto 11.9 x10*3/uL (2.0-8.3); Platelet Count 229 X10*3/uL (160-400); Red Cell Distribution Width 15.6 % (11.0-16.0); SCAN SMEAR FLAG 1
[2023-02-08 05:56] LABS: Anion Gap 12 (12-20); Blood Urea Nitrogen 32 mg/dL (9-16); Calcium 8.7 mg/dL (8.4-10.2); Carbon Dioxide 28 mmol/L (22-29); Chloride 108 mmol/L (96-108); Estimated Glomerular Filt Rate 33; Glucose Random 142 mg/dL (60-115); Potassium 4.9 mmol/L (3.3-5.1); Sodium 143 mmol/L (135-145)
[2023-02-08 08:30] LABS: Glucose, Whole Blood 133 mg/dL (60-115)
--- NOTE | 2023-02-08 08:30 | PC.NURSE ---
assumed care of pt at 0700. pt a&o x4, pleasant, calm, and cooperative. pt transferred to hospital bed from stretcher. pt on bedside monitor and 3.5L O2 via NC sating 98%. pt currently up in bed eating breakfast. rr even/unlabored. skin wpd. call morocho within pt reach. plan of care ongoing. awaiting bed assignment.
[2023-02-08] MEDS: Bumetanide 1 MG/4 ML VIAL 2 MG IVPUSH (09:01)
[2023-02-08] MEDS: Enoxaparin Sodium 40 MG/0.4 ML SYRINGE SUBCUT (09:04)
--- NOTE | 2023-02-08 09:29 | PHA.MEDREC ---
Pharmacy Consult ? Medication Reconciliation Pharmacy has completed the medication reconciliation. List faxed from Y[facility] Sor[facility]
--- NOTE | 2023-02-08 10:41 | PM.EVENT ---
Event Note Date of Service: 02/08/23 Event Note: admitted this morning with acute on chronic heart failure, hypoxia, better. A/P per H and P, med rec completed Time Spent With Patient Time: Total time managing care of this patient today ____ minutes.
--- NOTE | 2023-02-08 11:30 | PC.NURSE ---
PT BP 85/38 and map 55. Notified provider. Order for albumin placed. Report and hand off given to RnOrly who will continue care for pt and adminsiter medications
--- NOTE | 2023-02-08 11:41 | PC.NURSE ---
Addendum entered by Sheree Watters RN 02/08/23 12:47: called pharmacy again for pt's synthroid. Original Note: called pharmacy for pt's synthroid.
[2023-02-08] MEDS: Albuterol/Iprat 2.5/0.5MG 3 ML AMPUL.NEB INHALE ×3 (12:37→20:12)
--- NOTE | 2023-02-08 12:42 | MHC.CM.PN ---
CM MET WITH PT WHO REPORTS SHE HAS BEEN AT [facility] FOR SOME TIME SHE REPORTS IT IS STR PCP: KENIA MACKENZIE HCP ON FILE CM MESSAGED [facility] AND IT WAS CONFIRMED PT IS STR HOWEVER SHE IS A BED HOLD CM ALSO SPOKE WITH PTS HCP/NIECE, NIA BILL [phone] WHO CONFIRMED PT WILL RETURN TO [facility] IMM DELIVERED DCP: RETURN TO [facility] VIA BLS AWAITING RESPONSE FROM [facility] TO CONFIRM IF PT WILL NEED A PT EVAL OR RETURN
[2023-02-08 12:59] LABS: Glucose, Whole Blood 119 mg/dL (60-115)
[2023-02-08] MEDS: Levothyroxine Sodium 175 MCG TABLET PO (13:29)
[2023-02-08] MEDS: Hydroxychloroquine Sulfate 200 MG TABLET PO ×2 (13:30→22:52)
--- NOTE | 2023-02-08 13:38 | PC.NURSE ---
called pharmacy for additional medications/eyedrops
[2023-02-08] MEDS: SITagliptin Phosphate 100 MG TABLET PO (14:21)
[2023-02-08] MEDS: timoloL maleate 0.5 % Oph Sol 5 ML DRBTL 1 DROP EYE-RIGHT ×2 (14:22→22:35)
[2023-02-08] MEDS: prednisoLONE Acetate 1 % Oph Susp 5 ML DRPBTL 1 DROP EYE-RIGHT (14:22)
--- NOTE | 2023-02-08 14:57 | PC.NURSE ---
pt medicated per jun. pt currently sitting up in bed, sleeping. on 3L O2 via NC. pt niece visiting earlier. helped pt with eating. pt is legally blind. rr even/unlabored. call morocho within pt reach.
--- NOTE | 2023-02-08 15:55 | PC.NURSE ---
report given to ABLJEET Riggins. pt to ED overflow.
--- NOTE | 2023-02-08 17:54 | PC.NURSE ---
Addendum entered by Vaishnavi Rivera RN 02/08/23 17:58: no new orders at this time Original Note: informed DR Toribio of low BP and MAP x2.
[2023-02-08 18:12] LABS: Glucose, Whole Blood 144 mg/dL (60-115)
[2023-02-08 20:47] LABS: Glucose, Whole Blood 148 mg/dL (60-115)
[2023-02-08] MEDS: LORazepam 0.5 MG TABLET PO (22:33)
[2023-02-08] MEDS: Melatonin 3 MG TABLET 6 MG PO (22:33)
[2023-02-08] MEDS: Atorvastatin Calcium 10 MG TABLET PO (22:34)
[2023-02-08] MEDS: Brimonidine Tartrate 0.2% Oph 5 ML BOTTLE 1 DROP EYE-RIGHT (22:35)
[2023-02-08] MEDS: Artificial Tears 15 ML DROPS 1 DROP EYE-BOTH (22:35)
[2023-02-08] MEDS: Insulin Glargine,Hum.rec.anlog 100 UNIT/ML 10 ML VIAL 16 UNIT SUBCUT (22:35)
[2023-02-08] MEDS: Nystatin Powder 15 GM BOTTLE 1 APPL TOPICAL (22:36)
[2023-02-08] MEDS: guaiFENesin LA 600 MG TAB.ER.12H PO (22:36)
[2023-02-08] MEDS: Dorzolamide HCl 2 % Ophth Sol 10 ML DRPBTL 1 DROP EYE-RIGHT (22:48)
[2023-02-08] MEDS: diphenhydrAMINE HCl 2 % Cream 28 GM TUBE 1 APPL TOPICAL (22:50)
[2023-02-08] MEDS: chlordiazePOXIDE HCl 5 MG CAPSULE 10 MG PO (23:08)
--- NOTE | 2023-02-08 23:45 | PC.NURSE ---
Assumed care of pt at 1900 until 2299. PT medicated as Per JUN. Denies any pains at this time. PT on 4L NC . Respiratory Therapsited reduced down to 2l as PT was o2 saturation at 100%. PT breathing even and unlabored. Stage 2 wound noted on right buttock. Wound cleansed and foam dressing applied. Anti itch cream and nystatin powder placed in groin area and buttocks. Purewick in place. PT offers no complaints at this time. Plan of care ongoing
[2023-02-09] VITALS (16 sets, daily range): BP systolic 102–132; BP diastolic 42–61; PULSE 68–89; RESP 13–72; TEMP 35.9–37.1; O2SAT 91–100
[2023-02-09] MEDS: Albumin Human 25 % 100 ML IV (00:42)
--- NOTE | 2023-02-09 03:00 | PC.NURSE ---
Resumed care of PT at 0300. PT currently resting in bed quietly. Reports no pain at this time. Cycling BP q30 mins due to soft BPs. Call morocho within reach. Plan of care ongoing
--- NOTE | 2023-02-09 03:33 | PC.NURSE ---
PT BP 98/32 map 54. Notified provider. No new orders placed at this time.
--- NOTE | 2023-02-09 05:15 | PC.NURSE ---
PT breathing noted to be labored and O2sat dipping to 83% and back up to 88-91%. PT complains of feeling like something is stuck up her nse making it hard to breath. Right nostril has scant amount of blood and no apparent blockages. Lung sounds diminished. RT called to evaluate and provider notified. OXY mask placed on with little improvement. Provider notified. New orders placed, PT transported to Main ED for further evaluation.
[2023-02-09] MEDS: Bumetanide 1 MG/4 ML VIAL 2 MG IVPUSH ×2 (05:35→17:08)
--- NOTE | 2023-02-09 05:40 | PC.NURSE ---
pt moved from overflow bed 3 over to ED bed 1 due to increased work of breathing. pt o2 continuously dropping in the overflow down to 80% on 6L and pt wears 2L at baseline. resp therapy at bedside assessing pt, placed onto oxymask and still only 86% O2. pt moved over to ED and placed on bipap by RT, ABG done, chest xray ordered, 2mg bumex iv administered per MD orders . pt BP 132/55 and OK to now give bumex. gibson cath to be placed next. pt alert responds to verbal stimuli but appears lethargic. on glass sander belt. plan of care ongoing.
[2023-02-09 05:47] LABS: ABG Base Excess 7.2 mmol/L; ABG HCO3 34 mmol/L (22-26); ABG pCO2 62 mmHg (32-45); ABG pH 7.34 (7.35-7.45); ABG pO2 55 mmHg (83-108)
[2023-02-09 06:06] LABS: ABG Refer to POC result
--- NOTE | 2023-02-09 06:38 | PM.EVENT ---
Event Note Date of Service: 02/09/23 Event Note: Nurse informed that patient was hypoxic and dyspneic. Obtaining ABG and CXR. Bilateral crackles on exam. Ordered bumex (which was held previously due to low BP) and gibson with improvement with resp rate. Time Spent With Patient Time: Total time managing care of this patient today ____ minutes.
--- NOTE | 2023-02-09 07:00 | CA_ITS ---
Transthoracic Echocardiogram Patient (Last, First, Middle): Cindy Toney F Gender: Female Date of : 1950 Age: 72 Procedure Date: 02/09/2023 Procedure Type: Transthoracic Echocardiogram Location: [facility] [place] Height: 160.02 cm Weight: 113.4 kg BSA: 2.13 m2 Heart Rate: 73 bpm BP: 103 / 44 mmHg Zanjero: SB Referring MD: Jaja Hand MD Marketing Trainee: Rahul Bearden MD Symptoms: CHF Study Quality: Technically Difficult ECG Rhythm: Sinus Conclusions: - 1. Hyperdynamic LVEF of greater than 70% 2. Poor visualization cardiac well but heavy mitral calcification noted of mitral stenosis cannot be entirely ruled out with mild to-moderate aortic stenosis 3. No gross pericardial effusion Findings Procedure Information Contrast agent, definity, is being given per protocol without apparent complications. The quality of the study was technically difficult. The study quality is limited by patients body habitus and limitations of a portable exam. Left Ventricle The left ventricle was not well visualized. Normal left ventricular cavity size. There is normal left ventricular wall thickness. The left ventricular systolic function is hyperdynamic. The visually estimated ejection fraction is >70%. Diastolic function is indeterminate on the basis of available data. Right Ventricle The right ventricle was not well visualized. Atria The left atrium was not well visualized. Interatrial shunt cannot be excluded. The right atrium was not well visualized. Aortic Valve The aortic valve was not well visualized. There is mild calcification of the aortic valve. There is mild to moderate aortic valve stenosis. There is no aortic valve regurgitation. Mitral Valve The mitral valve was not well visualized. There is severe posterior mitral leaflet thickening. There is severe mitral annular calcification. There is no mitral valve regurgitation. mean gradient is elevated and mitral stenosis cannot be ruled out. Pulmonic Valve The pulmonic valve was not well visualized. Tricuspid Valve The tricuspid valve was not well visualized. Tricuspid regurgitation envelope is inadequate for calculation of right ventricular systolic pressure. Mildly elevated right atrial pressure. Great Vessels All visible segments of the aorta are normal in size. The pulmonary artery was not well visualized. Venous The inferior vena cava is moderately dilated and collapses less than 50% with inspiration. Pericardium/Pleural There is no evidence of pericardial effusion. There is a bilateral pleural effusion. Measurements 2D Linear Measurements IVSd: 0.87 0.6-0.9/0.6-1.0 cm LVIDd: 5.70 3.9-5.3/4.2-5.9 cm LVIDd Index: 2.68 2.4-3.2/2.2-3.1 cm/m2 LVIDs: 3.33 2.0-3.6 cm LVPWd: 1.02 0.7-1.1 cm LA Diam: 4.60 2.7-3.8/3.0-4.0 cm LAIDs Index: 2.16 1.5-2.3 cm/m2 LV Mass: 262.13 67-162/88-224 g LV Mass Index: 123.07 43-95/49-115 g/m2 LVOT Diam: 1.90 3.0+(-)1.3 cm 2D Systolic Function EF 4C: 74.50 >55% EF 2C: 71.10 >55% EF BiP: 72.30 >55% Mitral Valve MV VTI: 0.61 MV Pk Tristen: 2.15 MV Mn Tristen: 1.54 MV Pk Grad: 18.00 MV Mn Grad: 11.00 MV Pk E: 1.77 MV PK A: 1.58 MV Decel Time: 299.00 E/A: 1.10 E'Lateral: 4.91 E/E' Lat: 36.00 PHT: 88.00 MVA PHT: 2.50 MVA Continuity: 0.98 Decel [place]: 5.92 Aortic Valve AoV Pk Tristen: 2.01 AoV Mn Tristen: 1.28 AoV VTI: 0.44 AoV Pk Grad: 16.00 Aov Mn Grad: 8.00 EVAN Cont.VTI: 1.37 LVOT LVOT Pk Tristen: 0.82 LVOT Mn Tristen: 0.56 LVOT VTI: 0.21 LVOT Pk Grad: 3.00 LVOT Mn Grad: 2.00 LVOT Diam: 1.90 LVOT Area: 2.84 Diastolic Function MV Pk E: 1.77 MV Pk A: 1.58 E/A: 1.10 E' Laterial: 4.91 E/E' Lat: 36.00 Right Ventricle TAPSE (mm): 15.20 TVS' Tristen: 10.70 Tricuspid Valve RA Press: 8.00 Great Vessels Aorta Sinus of Valsalva: 2.40 2.0-3.5 cm Ao Asc: 3.30 2.1-3.4 cm Pulmonary Valve PV Pk Tristen: 1.17 Peak PV Grad: 5.00 Updated in Other Vendor System with Status of Final Rahul Bearden MD electronically signed on 02/09/2023 4:55:39 PM with status of Final
--- NOTE | 2023-02-09 07:08 | PC.NURSE ---
sleeping resp even and unlabored, sr on monitor, warm blankets applied, nad
[2023-02-09] MEDS: Albuterol/Iprat 2.5/0.5MG 3 ML AMPUL.NEB INHALE ×3 (07:33→19:17)
[2023-02-09 07:37] LABS: Glucose, Whole Blood 126 mg/dL (60-115)
[2023-02-09] MEDS: Levothyroxine Sodium 175 MCG TABLET PO (08:37)
[2023-02-09] MEDS: Escitalopram Oxalate 10 MG TABLET PO (08:37)
[2023-02-09] MEDS: LORazepam 0.5 MG TABLET PO ×2 (08:37→20:33)
[2023-02-09] MEDS: Magnesium Oxide 400 MG TABLET 200 MG PO (08:37)
[2023-02-09] MEDS: Enoxaparin Sodium 40 MG/0.4 ML SYRINGE SUBCUT (08:38)
[2023-02-09] MEDS: amLODIPine Besylate 10 MG TABLET PO (08:38)
[2023-02-09] MEDS: Hydroxychloroquine Sulfate 200 MG TABLET PO ×2 (08:38→20:33)
[2023-02-09] MEDS: guaiFENesin LA 600 MG TAB.ER.12H PO ×2 (08:38→20:33)
[2023-02-09] MEDS: hydrOXYzine HCL 25 MG TABLET PO (08:38)
[2023-02-09] MEDS: SITagliptin Phosphate 100 MG TABLET PO (08:40)
[2023-02-09] MEDS: predniSONE 1 MG TABLET 6 MG PO (08:40)
[2023-02-09] MEDS: Insulin Glargine,Hum.rec.anlog 100 UNIT/ML 10 ML VIAL 16 UNIT SUBCUT ×2 (08:40→20:50)
[2023-02-09] MEDS: Brimonidine Tartrate 0.2% Oph 5 ML BOTTLE 1 DROP EYE-RIGHT ×2 (08:40→20:35)
[2023-02-09] MEDS: Nystatin Powder 15 GM BOTTLE 1 APPL TOPICAL ×2 (08:40→20:35)
[2023-02-09] MEDS: diphenhydrAMINE HCl 2 % Cream 28 GM TUBE 1 APPL TOPICAL (08:41)
[2023-02-09] MEDS: prednisoLONE Acetate 1 % Oph Susp 5 ML DRPBTL 1 DROP EYE-RIGHT (08:41)
[2023-02-09] MEDS: Artificial Tears 15 ML DROPS 1 DROP EYE-BOTH ×2 (08:41→20:34)
[2023-02-09] MEDS: Dorzolamide HCl 2 % Ophth Sol 10 ML DRPBTL 1 DROP EYE-RIGHT ×2 (08:41→20:34)
[2023-02-09] MEDS: timoloL maleate 0.5 % Oph Sol 5 ML DRBTL 1 DROP EYE-RIGHT ×2 (08:41→20:35)
[2023-02-09] MEDS: 0.9 % Sodium Chloride Flush 3 ML SYRINGE IVFLUSH ×3 (08:42→23:09)
[2023-02-09 13:05] LABS: Glucose, Whole Blood 182 mg/dL (60-115)
[2023-02-09 15:17] LABS: ABG Base Excess 7.8 mmol/L; ABG HCO3 33 mmol/L (22-26); ABG pCO2 53 mmHg (32-45); ABG pO2 74 mmHg (83-108)
--- NOTE | 2023-02-09 16:01 | PM.CNPUL ---
History of Present Illness History of Present Illness Consult date: 02/09/23 Reason for consult: dyspnea, hypoxemia and obstructive sleep apnea Chief complaint: Dyspnea Narrative: This is a 72-year-old female with multiple co-morbidities including congestive heart failure with preserved ejection fraction, chronic kidney disease, CLL in remission , Chronic hypoxemic respiratory failure due to COPD, obesity, obstructive sleep apnea, essential hypertension, mood disorder, hypothyroidism, insulin-dependent diabetes mellitus who presents to the emergency department for evaluation of dyspnea which has been worse for about 1 day .She was found to be hypoxemic at outside facility on her home O2. Apparently patient has had orthopnea , and increase leg swelling. There is no history of any recent fever chills of or chest pain. The patient is grossly obese and does have diagnosis of obstructive sleep apnea/hypoventilation syndrome, and she is supposed to be using BiPAP every night. I notice in the record that she was admitted here in October of this year with acute respiratory failure requiring use of BiPAP, in addition to aggressive diuresis. At the time of examination this patient is in relatively acute distress, and not able to do much conversation. The nursing staff by the bedside states that she was better early this morning, but then she has started having increased distress, requiring high oxygen flow, currently on 5 L/minute with oxy mask. During the night she did use BiPAP. Review of Systems Review of Systems: Yes Unobtainable due to mental status and Other (She is quite short of breath at this time, not able to converse.) [facility] Past Medical History Medical History (Updated 02/09/23 @ 16:23 by Manda Quick MD) Anemia Hypoventilation associated with obesity COVID Congestive heart failure CKD (chronic kidney disease) stage 3, GFR 30-59 ml/min Acute respiratory failure with hypoxia Rash Heart block AV second degree Morbid obesity Acute UTI Acute kidney injury superimposed on CKD Bradycardia Pleural effusion Acute respiratory failure Pneumonia due to COVID-19 virus Chronic lymphocytic leukemia (CLL), B-cell Dyspnea Congestive heart failure COVID-19 Hypoxia Influenza A CLL (chronic lymphocytic leukemia) Suspected deep tissue injury Klebsiella pneumonia Infection with ESBL Klebsiella oxytoca Lymphadenopathy, mediastinal Pleural effusion Congestive heart failure Essential hypertension COVID Lower extremity edema Migraine HTN (hypertension) Pseudotumor cerebri PVD (peripheral vascular disease) Obesity CKD (chronic kidney disease) Diabetes mellitus with insulin therapy Hypothyroidism HLD (hyperlipidemia) Family History Family History Mother Heart attack, Onset Age: 92 Father Heart attack, Onset Age: 66 Other Diabetes Surgical History Surgical History S/P appendectomy H/O cataract extraction H/O hysterectomy for benign disease Hx of cholecystectomy Social History Social History Household Members: Other Household Members Other:: Assisted living facility Housing: Assisted Living Facility Alcohol intake: former Patient Tobacco Use Status: Former Tobacco user Second Hand Smoke Exposure: No Advance Directives Date on File: 09/26/20 service: No Current occupational status: disabled [employer] Allergies Allergy/AdvReac Type Severity Reaction Status Date / Time oxycodone [From Percocet] Allergy Intermediate Rash Verified 02/08/23 01:02 lisinopril Allergy Unknown Unknown Verified 02/08/23 01:02 metoprolol AdvReac Severe bradycardia Verified 02/08/23 01:02 Active Medications: Current Medications Acetaminophen (Acetaminophen 325 Mg Tablet) 650 mg PO Q6H PRN PRN Reason: Pain, Mild (Pain Scale 1-3) Acetaminophen/Butalbital/Caffeine (Butalb/Acetamin/Caff 50/325/40 Tablet) 1 tab PO Q6H PRN PRN Reason: Headache Albuterol/Ipratropium (Albuterol/Iprat 2.5/0.5mg 3 Ml Ampul.Neb) 3 ml INHALE RQ4H WHILE AWAKE [facility] Last Admin: 02/09/23 15:38 Dose: 3 ml Amlodipine Besylate (Amlodipine Besylate 10 Mg Tablet) 10 mg PO DAILY [facility]; Protocol Last Admin: 02/09/23 08:38 Dose: 10 mg Artificial Tears (Artificial Tears 15 Ml Drops) 1 drop EYE-BOTH BID [facility] Last Admin: 02/09/23 08:41 Dose: 1 drop Atorvastatin Calcium (Atorvastatin Calcium 10 Mg Tablet) 10 mg PO BEDTIME [facility] Last Admin: 02/08/23 22:34 Dose: 10 mg Bisacodyl (Bisacodyl 10 Mg Supp.Rect) 10 mg MO DAILY PRN PRN Reason: Constipation Brimonidine Tartrate (Brimonidine Tartrate 0.2% Oph 5 Ml Bottle) 1 drop EYE-RIGHT BID [facility] Last Admin: 02/09/23 08:40 Dose: 1 drop Bumetanide (Bumetanide 1 Mg/4 Ml Vial) 2 mg IVPUSH BID@0800,1700 [facility]; Protocol Last Admin: 02/09/23 05:35 Dose: 2 mg Chlordiazepoxide HCl (Chlordiazepoxide Hcl 5 Mg Capsule) 10 mg PO BEDTIME [facility] Last Admin: 02/08/23 23:08 Dose: 10 mg Dextrose (Dextrose 50 % 25 Gm/50 Ml Syringe) 25 gm IVPUSH Q15M PRN; Protocol PRN Reason: per Hypoglycemia Standing Ord. Dorzolamide HCl (Dorzolamide Hcl 2 % Ophth Mona 10 Ml Drpbtl) 1 drop EYE-RIGHT BID [facility] Last Admin: 02/09/23 08:41 Dose: 1 drop Enoxaparin Sodium (Enoxaparin Sodium 40 Mg/0.4 Ml Syringe) 40 mg SUBCUT Q24H [facility] Last Admin: 02/09/23 08:38 Dose: 40 mg Escitalopram Oxalate (Escitalopram Oxalate 10 Mg Tablet) 10 mg PO DAILY [facility] Last Admin: 02/09/23 08:37 Dose: 10 mg Fluticasone/Vilanterol (Fluticasone/Vilanterol 200/25 Blst.W.Dev) 1 puff INHALE RDAILY [facility] Last Admin: 02/09/23 07:35 Dose: Not Given Glucose (Glucose Gel 15 Gm Gel..Gram.) 15 gm PO Q15M PRN; Protocol PRN Reason: per Hypoglycemia Standing Ord. Guaifenesin (Guaifenesin La 600 Mg Tab.Er.12h) 600 mg PO BID [facility] Last Admin: 02/09/23 08:38 Dose: 600 mg Hydroxychloroquine Sulfate (Hydroxychloroquine Sulfate 200 Mg Tablet) 200 mg PO BID [facility] Last Admin: 02/09/23 08:38 Dose: 200 mg Hydroxyzine HCl (Hydroxyzine Hcl 25 Mg Tablet) 25 mg PO DAILY [facility] Last Admin: 02/09/23 08:38 Dose: 25 mg Insulin Glargine (Insulin Glargine,Hum.Rec.Anlog 100 Unit/Ml 10 Ml Vial) 16 unit SUBCUT BID [facility] Last Admin: 02/09/23 08:40 Dose: 16 unit Insulin Human Lispro (Insulin Lispro 100 Unit/Ml 3 Ml Vial) 0 unit SUBCUT QIDACHS [facility]; Protocol Last Admin: 02/09/23 13:19 Dose: Not Given Latanoprost (Latanoprost 0.005 % Ophth Mona 2.5 Ml Drops) 1 drop EYE-BOTH BEDTIME [facility] Last Admin: 02/08/23 23:07 Dose: Not Given Levothyroxine Sodium (Levothyroxine Sodium 175 Mcg Tablet) 175 mcg PO DAILY@0600 [facility] Last Admin: 02/09/23 08:37 Dose: 175 mcg Loperamide HCl (Loperamide Hcl 2 Mg Capsule) 2 mg PO Q4H PRN PRN Reason: Diarrhea Lorazepam (Lorazepam 0.5 Mg Tablet) 0.5 mg PO BID [facility] Last Admin: 02/09/23 08:37 Dose: 0.5 mg Magnesium Hydroxide (Milk Of Magnesia 30 Ml Oral.Susp) 30 ml PO DAILY PRN PRN Reason: Constipation Magnesium Oxide (Magnesium Oxide 400 Mg Tablet) 200 mg PO DAILY [facility] Last Admin: 02/09/23 08:37 Dose: 200 mg Melatonin (Melatonin 3 Mg Tablet) 6 mg PO BEDTIME PRN PRN Reason: Insomnia Melatonin (Melatonin 3 Mg Tablet) 6 mg PO BEDTIME [facility] Last Admin: 02/08/23 22:33 Dose: 6 mg Non-Formulary Medication (Acalabrutinib Maleate [Calquence (Acalabrutinib Mal)]) 100 mg PO BID [facility] Nystatin (Nystatin Powder 15 Gm Bottle) 1 appl TOPICAL BID [facility]; Protocol Last Admin: 02/09/23 08:40 Dose: 1 appl Ondansetron HCl (Ondansetron Hcl 4 Mg/2 Ml Vial) 4 mg IVPUSH Q8H PRN PRN Reason: Nausea and Vomiting Prednisolone Acetate (Prednisolone Acetate 1 % Oph Susp 5 Ml Drpbtl) 1 drop EYE-RIGHT DAILY [facility] Last Admin: 02/09/23 08:41 Dose: 1 drop Prednisone (Prednisone 1 Mg Tablet) 6 mg PO DAILY [facility] Last Admin: 02/09/23 08:40 Dose: 6 mg Senna (Sennosides 8.6 Mg Tablet) 17.2 mg PO DAILY PRN PRN Reason: Constipation Sitagliptin Phosphate (Sitagliptin Phosphate 100 Mg Tablet) 100 mg PO DAILY [facility] Last Admin: 02/09/23 08:40 Dose: 100 mg Sodium Biphosphate/Sodium Phosphate (Sodium Phosphate,Shackelford-Dibasic 133 Ml Enema) 133 ml MO DAILY PRN PRN Reason: Constipation Sodium Chloride (0.9 % Sodium Chloride Flush 3 Ml Syringe) 3 ml IVFLUSH QSHIFT [facility] Last Admin: 02/09/23 08:42 Dose: 3 ml Timolol Maleate (Timolol Maleate 0.5 % Oph Mona 5 Ml Drbtl) 1 drop EYE-RIGHT BID [facility] Last Admin: 02/09/23 08:41 Dose: 1 drop Tiotropium Colerain (Tiotropium Colerain 2.5 Mcg Inhaler) 2 puff INHALE RDAILY [facility] Last Admin: 02/09/23 07:36 Dose: Not Given Zinc Acetate/Diphenhydramine (Diphenhydramine Hcl 2 % Cream 28 Gm Tube) 1 appl TOPICAL BID [facility]; Protocol Last Admin: 02/09/23 08:41 Dose: 1 appl Home Medications Medication Instructions Recorded Confirmed Last Taken Type chlordiazepoxide HCl 10 mg capsule 10 mg PO BEDTIME 10/08/21 02/08/23 Unknown History citalopram 20 mg tablet 20 mg PO DAILY 10/08/21 02/08/23 Unknown History insulin lispro protamine-lispro 0 unit subcut QIDACHS 10/08/21 02/08/23 Unknown History 100 unit/mL (75-25) subcutaneous pen levothyroxine 175 mcg tablet 175 mcg PO DAILY@0600 10/08/21 02/08/23 Unknown History simvastatin 20 mg tablet 20 mg PO BEDTIME 10/08/21 02/08/23 Unknown History sitagliptin phosphate 100 mg 100 mg PO DAILY 10/08/21 02/08/23 Unknown History tablet (Januvia) latanoprost 0.005 % eye drops 1 drp ophthalmic (eye) BEDTIME 11/20/21 02/08/23 Unknown History albuterol sulfate 0.63 mg/3 mL 0.63 mg inhalation Q2H PRN 02/16/22 02/08/23 Unknown History solution for nebulization Shortness Of Breath Or Wheezing brinzolamide 1 %-brimonidine 0.2 % 1 drp ophthalmic-Right BID 02/16/22 02/08/23 Unknown History eye drops,suspension (Simbrinza) [id number] 1 tab PO Q6H PRN Headache 02/16/22 02/08/23 Unknown History 50 mg-325 mg-40 mg tablet coenzyme Q10 100 mg capsule 150 mg PO DAILY 02/16/22 02/08/23 Unknown History (CoQ-10) insulin glargine 100 unit/mL (3 16 unit subcut BID 02/16/22 02/08/23 Unknown History mL) subcutaneous pen (Lantus Solostar U-100 Insulin) melatonin 5 mg tablet 5 mg PO BEDTIME 02/16/22 02/08/23 Unknown History prednisolone acetate 1 % eye 1 drp ophthalmic-Right DAILY 02/16/22 02/08/23 Unknown History drops,suspension sennosides 8.6 mg tablet (senna) 17.2 mg PO DAILY PRN Constipation 02/16/22 02/08/23 Unknown History timolol maleate 0.5 % eye drops 1 drp ophthalmic-Right BID 02/16/22 02/08/23 Unknown History carboxymethylcellulose sodium 1 % 1 drp ophthalmic (eye) BID 03/15/22 02/08/23 Unknown History eye drops (Artificial Tears (carboxymethylcellulose)) budesonide-formoterol HFA 160 2 puff inhalation BID 04/27/22 02/08/23 Unknown History mcg-4.5 mcg/actuation aerosol inhaler (Symbicort) umeclidinium 62.5 mcg/actuation 1 inh inhalation DAILY 04/27/22 02/08/23 Unknown History blister powder for inhalation (Incruse Ellipta) acetaminophen 325 mg tablet 650 mg PO Q4H PRN Pain (Scale 06/08/22 02/08/23 Unknown History (Tylenol) Score 4-6) amlodipine 10 mg tablet 10 mg PO DAILY high blood pressure 06/08/22 02/08/23 Unknown History guaifenesin 600 mg tablet, 600 mg PO BID cough 06/08/22 02/08/23 Unknown History extended release 12 hr sodium phosphates 19 gram-7 118 ml MO DAILY PRN Constipation 06/08/22 02/08/23 Unknown History gram/118 mL enema (Fleet Enema) levalbuterol HCl 1.25 mg/3 mL 1.25 mg inhalation QID 07/30/22 02/08/23 Unknown History solution for nebulization biotin 5 mg tablet 5 mg PO DAILY 08/11/22 02/08/23 Unknown History bisacodyl 10 mg rectal suppository 10 mg MO DAILY PRN Constipation 08/11/22 02/08/23 Unknown History hydroxychloroquine 200 mg tablet 200 mg PO BID 08/11/22 02/08/23 Unknown History hydroxyzine HCl 25 mg tablet 25 mg PO DAILY 08/11/22 02/08/23 Unknown History lorazepam 0.5 mg tablet 0.5 mg PO BID Anxiety 08/11/22 02/08/23 Unknown History magnesium 200 mg tablet 200 mg PO DAILY 08/11/22 02/08/23 Unknown History riboflavin (vitamin B2) 400 mg 400 mg PO DAILY 08/11/22 02/08/23 Unknown History tablet diphenhydramine-zinc acetate 2 1 appl topical BID 10/27/22 02/08/23 Unknown History %-0.1 % topical cream nystatin 100,000 unit/gram topical 1 appl topical BID 10/27/22 02/08/23 Unknown History powder prednisone 1 mg tablet 6 mg PO DAILY 10/27/22 02/08/23 Unknown History acidophilus 100 million 1 cap PO BID 12/12/22 02/08/23 Unknown History cell-pectin, citrus 10 mg capsule bumetanide 1 mg tablet 2 mg PO BID@0900,1400 12/31/22 02/08/23 Unknown History acalabrutinib maleate 100 mg 100 mg PO BID 02/08/23 02/08/23 Unknown History tablet (Calquence (acalabrutinib maleate)) loperamide 2 mg capsule 2 mg PO Q4H PRN Diarrhea 02/08/23 02/08/23 Unknown History magnesium hydroxide 400 mg/5 mL 30 ml PO DAILY PRN Constipation 02/08/23 02/08/23 Unknown History oral suspension (Milk of Magnesia) Physical Exam Vital Signs: Vital Signs: Last Vital Signs Temp 98.2 F 02/09/23 15:31 Pulse 82 02/09/23 15:31 Resp 20 02/09/23 15:31 BP 122/59 L 02/09/23 15:31 Pulse Ox 100 02/09/23 15:31 O2 Del Method Nasal Cannula 02/09/23 15:31 O2 Flow Rate 5 02/09/23 15:31 Oxygen Flow Rate 5 02/08/23 00:58 BMI result Body Mass Index 44.1 Const: General: no acute distress, alert and awake; No comfortable (Moderately short of breath) HEENT: Other: No obvious infection in the oropharynx. But the upper airways are quite narrow. General nose exam: No nasal polyps present and No nasal discharge present Face and sinus: Yes sinuses nontender Mouth: oropharynx abnormals (Narrow and crowded) Throat: Yes posterior oropharynx normal Eyes: General: appearance normal, both eyes and all related structures Neck: Neck: Yes normal visual inspection, Yes no lymphadenopathy, Yes trachea midline and Yes no JVD (No visible venous distention) Thyroid: Thyroid normal Chest: Chest palpation & inspection: normal inspection of the chest, normal palpation of entire chest wall, no tenderness and other (Chavez catheter in the right pectoral area) Resp: Other: Percussion note is not perceptible, breath sounds are very distant and especially decreased over. the basilar areas A few inspiratory crepitations over the basilar areas. Cardio: Palpation: PMI not normal (Not palpable) Rate: regular rate Rhythm: regular rhythm Heart sounds: no gallops and no murmurs GI: Palpation (GI): Soft to palpation, nontender, No hepatosplenomegaly present, no masses and Other GI palpation findings present (Abdomen is obese and protuberant) Back/Spine/Pelvis: Other: Not examined Skin: Other: She has extensive purpuric spots on the skin of the abdomen and extremities Neuro: Other: Not examined Extrem: General: Yes no calf tenderness and Yes edema (Moderate edema of lower extremities) Results Laboratory Findings 02/08/23 05:01 02/08/23 05:01 Abnormal lab findings: Abnormal Labs 02/08/23 02/08/23 02/08/23 02:42 02:48 05:01 WBC 16.2 H 16.0 H RBC 2.88 L 2.80 L Hgb 7.2 L 7.1 L Hct 25.3 L 24.8 L MCH 25.0 L 25.4 L MCHC 28.5 L 28.6 L Immature Gran % (Auto) 2.6 H 2.5 H Neut % (Auto) 74.9 H 74.0 H Lymph % (Auto) 10.4 L 10.8 L Shackelford # (Auto) 1.7 H 1.7 H Abs Immat Gran (auto) 0.42 H 0.40 H Absolute Neuts (auto) 12.1 H 11.9 H Absolute Nucleated RBC 0.020 H 0.030 H ABG pH at Pt Temp ABG pCO2 at Pt Temp ABG pO2 at Pt Temp ABG HCO3 VBG HCO3 35 H Potassium 5.4 H D Carbon Dioxide 30 H BUN 34 H 32 H Creatinine 1.59 H 1.56 H POC Glucose Random Glucose 163 H 142 H B-Natriuretic Peptide 824 H Total Protein 5.7 L Albumin 2.6 L 02/08/23 02/08/23 02/08/23 08:25 12:56 18:08 WBC RBC Hgb Hct MCH MCHC Immature Gran % (Auto) Neut % (Auto) Lymph % (Auto) Shackelford # (Auto) Abs Immat Gran (auto) Absolute Neuts (auto) Absolute Nucleated RBC ABG pH at Pt Temp ABG pCO2 at Pt Temp ABG pO2 at Pt Temp ABG HCO3 VBG HCO3 Potassium Carbon Dioxide BUN Creatinine POC Glucose 133 H 119 H 144 H Random Glucose B-Natriuretic Peptide Total Protein Albumin 02/08/23 02/09/23 02/09/23 20:43 05:41 07:32 WBC RBC Hgb Hct MCH MCHC Immature Gran % (Auto) Neut % (Auto) Lymph % (Auto) Shackelford # (Auto) Abs Immat Gran (auto) Absolute Neuts (auto) Absolute Nucleated RBC ABG pH at Pt Temp 7.34 L ABG pCO2 at Pt Temp 62 H* ABG pO2 at Pt Temp 55 L ABG HCO3 34 H VBG HCO3 Potassium Carbon Dioxide BUN Creatinine POC Glucose 148 H 126 H Random Glucose B-Natriuretic Peptide Total Protein Albumin 02/09/23 02/09/23 13:00 15:11 WBC RBC Hgb Hct MCH MCHC Immature Gran % (Auto) Neut % (Auto) Lymph % (Auto) Shackelford # (Auto) Abs Immat Gran (auto) Absolute Neuts (auto) Absolute Nucleated RBC ABG pH at Pt Temp ABG pCO2 at Pt Temp 53 H ABG pO2 at Pt Temp 74 L ABG HCO3 33 H VBG HCO3 Potassium Carbon Dioxide BUN Creatinine POC Glucose 182 H Random Glucose B-Natriuretic Peptide Total Protein Albumin Very low hemoglobin 7.1 is noted ABGs 7.34 Pco2= 62 Po2 55 Diagnostic Findings Chest x-ray: report reviewed and image reviewed Assessment and Plan (1) Morbid obesity: Status: Acute (2) LATONYA (obstructive sleep apnea): Status: Acute (3) Hypoventilation associated with obesity: Status: Acute (4) CLL (chronic lymphocytic leukemia): Status: Chronic (5) Acute on chronic heart failure with preserved ejection fraction: Status: Acute (6) Anemia: Status: Acute Plan This patient with extensive past medical history as noted in [facility] , comes in with acute on chronic congestive heart failure, on top of her LATONYA/hypoventilation syndrome and chronic respiratory failure. She has increased O2 requirement because of above. Recc : Aggressive diuretic therapy. O2 supplementation to keep O2 sat above 92%, while carefully watching for CO2 retention. Keep her on BiPAP treatment overnight and also, intermittently during the daytime, . To alleviate her respiratory distress . Breo - 200 1 inhalation daily DuoNeb updrafts Q 4-6 hours while awake. Severe anemia,( which is probably part of her CLL and bone marrow dysfunction ) is contributing to her increased respiratory distress. Thank you her asking me to see this patient and participating. In her management Procedures Date of Service Date of Service: 02/09/23
[2023-02-09 16:09] LABS: Glucose, Whole Blood 164 mg/dL (60-115)
[2023-02-09 18:03] LABS: ABG Refer to POC result
[2023-02-09 20:28] LABS: Glucose, Whole Blood 129 mg/dL (60-115)
[2023-02-09] MEDS: Atorvastatin Calcium 10 MG TABLET PO (20:32)
[2023-02-09] MEDS: chlordiazePOXIDE HCl 5 MG CAPSULE 10 MG PO (20:33)
[2023-02-09] MEDS: Melatonin 3 MG TABLET 6 MG PO (20:33)
[2023-02-10] VITALS (13 sets, daily range): BP systolic 99–122; BP diastolic 48–61; PULSE 68–86; RESP 16–20; TEMP 36–37.1; O2SAT 91–100
[2023-02-10] MEDS: Levothyroxine Sodium 175 MCG TABLET PO (05:15)
--- NOTE | 2023-02-10 06:34 | PC.NURSE ---
Patient requesting to have bipap removed overnight, placed on 2L O2 NC . O2 sats 95%.
[2023-02-10 07:00] LABS: Glucose, Whole Blood 73 mg/dL (60-115)
[2023-02-10] MEDS: Albuterol/Iprat 2.5/0.5MG 3 ML AMPUL.NEB INHALE ×4 (07:17→19:33)
[2023-02-10] MEDS: Fluticasone/Vilanterol 200/25 BLST.W.DEV 1 PUFF INHALE (08:32)
[2023-02-10] MEDS: prednisoLONE Acetate 1 % Oph Susp 5 ML DRPBTL 1 DROP EYE-RIGHT (09:31)
[2023-02-10] MEDS: Bumetanide 1 MG/4 ML VIAL 2 MG IVPUSH ×2 (09:32→17:13)
[2023-02-10] MEDS: diphenhydrAMINE HCl 2 % Cream 28 GM TUBE 1 APPL TOPICAL ×2 (09:32→22:16)
[2023-02-10] MEDS: Insulin Glargine,Hum.rec.anlog 100 UNIT/ML 10 ML VIAL 16 UNIT SUBCUT ×2 (09:32→21:43)
[2023-02-10] MEDS: Hydroxychloroquine Sulfate 200 MG TABLET PO ×2 (09:32→21:42)
[2023-02-10] MEDS: Enoxaparin Sodium 40 MG/0.4 ML SYRINGE SUBCUT (09:32)
[2023-02-10] MEDS: Magnesium Oxide 400 MG TABLET 200 MG PO (09:41)
[2023-02-10] MEDS: LORazepam 0.5 MG TABLET PO ×2 (09:41→21:42)
[2023-02-10] MEDS: predniSONE 1 MG TABLET 6 MG PO (09:41)
[2023-02-10] MEDS: SITagliptin Phosphate 100 MG TABLET PO (09:41)
[2023-02-10] MEDS: guaiFENesin LA 600 MG TAB.ER.12H PO ×2 (09:41→21:42)
[2023-02-10] MEDS: Escitalopram Oxalate 10 MG TABLET PO (09:41)
[2023-02-10] MEDS: hydrOXYzine HCL 25 MG TABLET PO (09:41)
[2023-02-10] MEDS: amLODIPine Besylate 10 MG TABLET PO (09:42)
[2023-02-10] MEDS: 0.9 % Sodium Chloride Flush 3 ML SYRINGE IVFLUSH ×2 (09:42→17:13)
[2023-02-10] MEDS: Artificial Tears 15 ML DROPS 1 DROP EYE-BOTH ×2 (09:42→22:19)
[2023-02-10] MEDS: timoloL maleate 0.5 % Oph Sol 5 ML DRBTL 1 DROP EYE-RIGHT ×2 (09:42→22:17)
[2023-02-10] MEDS: Brimonidine Tartrate 0.2% Oph 5 ML BOTTLE 1 DROP EYE-RIGHT ×2 (09:42→22:18)
[2023-02-10] MEDS: Dorzolamide HCl 2 % Ophth Sol 10 ML DRPBTL 1 DROP EYE-RIGHT ×2 (09:42→21:43)
[2023-02-10 09:51] LABS: Glucose, Whole Blood 135 mg/dL (60-115)
[2023-02-10] MEDS: Nystatin Powder 15 GM BOTTLE 1 APPL TOPICAL ×2 (10:34→22:19)
[2023-02-10 11:14] LABS: Glucose, Whole Blood 139 mg/dL (60-115)
--- NOTE | 2023-02-10 11:33 | P.PNIM_ITS ---
Subjective Subjective Date of Service: 02/11/23 Interval History: f/u on acute on chronic respiratory failure due heart failure and copd clinically better on BiPAP Physical Exam 2 Vital Signs: Vital Signs: Last Vital Signs Temp 98.8 F 02/10/23 11:25 Pulse 84 02/10/23 11:25 Resp 20 02/10/23 11:25 BP 106/52 L 02/10/23 11:25 Pulse Ox 91 L 02/10/23 11:25 O2 Del Method Nasal Cannula 02/10/23 11:25 O2 Flow Rate 4.5 02/10/23 11:25 Oxygen Flow Rate 3 02/08/23 00:58 BMI result Body Mass Index 44.1 Const: Other: General: AO X 3, no acute distress Resp: CTA bilateral CVS: S1,S2,RRR GI: +BS, NT, no distention Skin: No rash Neuro: motor grossly intact Psych: appropriate affect Objective Data Active Medications Acetaminophen (Acetaminophen 325 Mg Tablet) 650 mg PO Q6H PRN PRN Reason: Pain, Mild (Pain Scale 1-3) Acetaminophen/Butalbital/Caffeine (Butalb/Acetamin/Caff 50/325/40 Tablet) 1 tab PO Q6H PRN PRN Reason: Headache Albuterol/Ipratropium (Albuterol/Iprat 2.5/0.5mg 3 Ml Ampul.Neb) 3 ml INHALE RQ4H WHILE AWAKE [facility] Last Admin: 02/10/23 11:06 Dose: 3 ml Documented By: REANNA Amlodipine Besylate (Amlodipine Besylate 10 Mg Tablet) 10 mg PO DAILY [facility]; Protocol Last Admin: 02/10/23 09:42 Dose: 10 mg Documented By: ESVIN Artificial Tears (Artificial Tears 15 Ml Drops) 1 drop EYE-BOTH BID [facility] Last Admin: 02/10/23 09:42 Dose: 1 drop Documented By: ESVIN Atorvastatin Calcium (Atorvastatin Calcium 10 Mg Tablet) 10 mg PO BEDTIME [facility] Last Admin: 02/09/23 20:32 Dose: 10 mg Documented By: ELGIN Bisacodyl (Bisacodyl 10 Mg Supp.Rect) 10 mg [place] DAILY PRN PRN Reason: Constipation Brimonidine Tartrate (Brimonidine Tartrate 0.2% Oph 5 Ml Bottle) 1 drop EYE- RIGHT BID [facility] Last Admin: 02/10/23 09:42 Dose: 1 drop Documented By: ESVIN Bumetanide (Bumetanide 1 Mg/4 Ml Vial) 2 mg IVPUSH BID@0800,1700 [facility]; Protocol Last Admin: 02/10/23 09:32 Dose: 2 mg Documented By: ESVIN Chlordiazepoxide HCl (Chlordiazepoxide Hcl 5 Mg Capsule) 10 mg PO BEDTIME [facility] Last Admin: 02/09/23 20:33 Dose: 10 mg Documented By: ELGIN Dextrose (Dextrose 50 % 25 Gm/50 Ml Syringe) 25 gm IVPUSH Q15M PRN; Protocol PRN Reason: per Hypoglycemia Standing Ord. Dorzolamide HCl (Dorzolamide Hcl 2 % Ophth Mona 10 Ml Drpbtl) 1 drop EYE-RIGHT BID [facility] Last Admin: 02/10/23 09:42 Dose: 1 drop Documented By: ESVIN Enoxaparin Sodium (Enoxaparin Sodium 40 Mg/0.4 Ml Syringe) 40 mg SUBCUT Q24H [facility] Last Admin: 02/10/23 09:32 Dose: 40 mg Documented By: ESVIN Escitalopram Oxalate (Escitalopram Oxalate 10 Mg Tablet) 10 mg PO DAILY [facility] Last Admin: 02/10/23 09:41 Dose: 10 mg Documented By: ESVIN Fluticasone/Vilanterol (Fluticasone/Vilanterol 200/25 Blst.W.Dev) 1 puff INHALE RDAILY [facility] Last Admin: 02/10/23 08:32 Dose: 1 puff Documented By: REANNA Glucose (Glucose Gel 15 Gm Gel..Gram.) 15 gm PO Q15M PRN; Protocol PRN Reason: per Hypoglycemia Standing Ord. Guaifenesin (Guaifenesin La 600 Mg Tab.Er.12h) 600 mg PO BID [facility] Last Admin: 02/10/23 09:41 Dose: 600 mg Documented By: ESVIN Hydroxychloroquine Sulfate (Hydroxychloroquine Sulfate 200 Mg Tablet) 200 mg PO BID [facility] Last Admin: 02/10/23 09:32 Dose: 200 mg Documented By: ESVIN Hydroxyzine HCl (Hydroxyzine Hcl 25 Mg Tablet) 25 mg PO DAILY [facility] Last Admin: 02/10/23 09:41 Dose: 25 mg Documented By: ESVIN Insulin Glargine (Insulin Glargine,Hum.Rec.Anlog 100 Unit/Ml 10 Ml Vial) 16 unit SUBCUT BID [facility] Last Admin: 02/10/23 09:32 Dose: 16 unit Documented By: ESVIN Insulin Human Lispro (Insulin Lispro 100 Unit/Ml 3 Ml Vial) 0 unit SUBCUT QIDACHS [facility]; Protocol Last Admin: 02/10/23 11:12 Dose: Not Given Documented By: ESVIN Non-Admin Reason: No Insulin Coverage Latanoprost (Latanoprost 0.005 % Ophth Mona 2.5 Ml Drops) 1 drop EYE-BOTH BEDTIME [facility] Last Admin: 02/09/23 20:36 Dose: Not Given Documented By: ELGIN Non-Admin Reason: Med Not Available Levothyroxine Sodium (Levothyroxine Sodium 175 Mcg Tablet) 175 mcg PO DAILY@0600 [facility] Last Admin: 02/10/23 05:15 Dose: 175 mcg Documented By: ELGIN Loperamide HCl (Loperamide Hcl 2 Mg Capsule) 2 mg PO Q4H PRN PRN Reason: Diarrhea Lorazepam (Lorazepam 0.5 Mg Tablet) 0.5 mg PO BID [facility] Last Admin: 02/10/23 09:41 Dose: 0.5 mg Documented By: ESVIN Magnesium Hydroxide (Milk Of Magnesia 30 Ml Oral.Susp) 30 ml PO DAILY PRN PRN Reason: Constipation Magnesium Oxide (Magnesium Oxide 400 Mg Tablet) 200 mg PO DAILY [facility] Last Admin: 02/10/23 09:41 Dose: 200 mg Documented By: ESVIN Melatonin (Melatonin 3 Mg Tablet) 6 mg PO BEDTIME PRN PRN Reason: Insomnia Melatonin (Melatonin 3 Mg Tablet) 6 mg PO BEDTIME [facility] Last Admin: 02/09/23 20:33 Dose: 6 mg Documented By: ELGIN Non-Formulary Medication (Acalabrutinib Maleate [Calquence (Acalabrutinib Mal)]) 100 mg PO BID [facility] Nystatin (Nystatin Powder 15 Gm Bottle) 1 appl TOPICAL BID [facility]; Protocol Last Admin: 02/10/23 10:34 Dose: 1 appl Documented By: ESVIN Ondansetron HCl (Ondansetron Hcl 4 Mg/2 Ml Vial) 4 mg IVPUSH Q8H PRN PRN Reason: Nausea and Vomiting Prednisolone Acetate (Prednisolone Acetate 1 % Oph Susp 5 Ml Drpbtl) 1 drop EYE-RIGHT DAILY [facility] Last Admin: 02/10/23 09:31 Dose: 1 drop Documented By: ESVIN Prednisone (Prednisone 1 Mg Tablet) 6 mg PO DAILY [facility] Last Admin: 02/10/23 09:41 Dose: 6 mg Documented By: ESVIN Senna (Sennosides 8.6 Mg Tablet) 17.2 mg PO DAILY PRN PRN Reason: Constipation Sitagliptin Phosphate (Sitagliptin Phosphate 100 Mg Tablet) 100 mg PO DAILY [facility] Last Admin: 02/10/23 09:41 Dose: 100 mg Documented By: ESVIN Sodium Biphosphate/Sodium Phosphate (Sodium Phosphate,[place]-Dibasic 133 Ml Enema) 133 ml [place] DAILY PRN PRN Reason: Constipation Sodium Chloride (0.9 % Sodium Chloride Flush 3 Ml Syringe) 3 ml IVFLUSH QSHIFT [facility] Last Admin: 02/10/23 09:42 Dose: 3 ml Documented By: ESVIN Timolol Maleate (Timolol Maleate 0.5 % Oph Mona 5 Ml Drbtl) 1 drop EYE-RIGHT BID [facility] Last Admin: 02/10/23 09:42 Dose: 1 drop Documented By: ESVIN Tiotropium [place] (Tiotropium [place] 2.5 Mcg Inhaler) 2 puff INHALE RDAILY [facility] Last Admin: 02/10/23 08:32 Dose: 2 puff Documented By: REANNA Zinc Acetate/Diphenhydramine (Diphenhydramine Hcl 2 % Cream 28 Gm Tube) 1 appl TOPICAL BID [facility]; Protocol Last Admin: 02/10/23 09:32 Dose: 1 appl Documented By: ESVIN Labs 02/08/23 05:01 02/10/23 11:46 Labs: Laboratory Results - last 24 hr 02/09/23 02/09/23 02/09/23 13:00 15:11 16:05 O2 Saturation 95.0 ABG pH at Pt Temp 7.40 ABG pCO2 at Pt Temp 53 H ABG pO2 at Pt Temp 74 L ABG HCO3 33 H ABG Base Excess (Actual) 7.8 POC Glucose 182 H 164 H 02/09/23 02/10/23 02/10/23 20:21 06:56 09:31 O2 Saturation ABG pH at Pt Temp ABG pCO2 at Pt Temp ABG pO2 at Pt Temp ABG HCO3 ABG Base Excess (Actual) POC Glucose 129 H 73 135 H 02/10/23 11:05 O2 Saturation ABG pH at Pt Temp ABG pCO2 at Pt Temp ABG pO2 at Pt Temp ABG HCO3 ABG Base Excess (Actual) POC Glucose 139 H Assessment and Plan (1) COVID: Status: Inactive (2) Acute respiratory failure with hypoxia: Status: Resolved Plan This is a 72-year-old female with pertinent history of congestive heart failure with preserved ejection fraction, chronic kidney disease, CLL, chronic hypoxemic respiratory failure due to COPD, obesity, obstructive sleep apnea, essential hypertension, mood disorder, hypothyroidism, insulin-dependent diabetes mellitus who presents to the emergency department for evaluation of dyspnea. #. Acute on chronic hypoxemic respiratory failure due to acute on chronic congestive heart failure with preserved ejection fraction. She is better today, continue IV Bumex, follow BMP. Pulmonology input noted. Wll have cardiology assess #. Chronic kidney disease: Creatinine at baseline. Monitor with diuresis. Avoid nephrotoxins #. Essential hypertension: Continue home antihypertensives #. COPD: Continue inhalers, BiPAP at night and PRN during the day #. Morbid obesity: Recommend low-calorie diet. #. Hypothyroidism: On Synthroid #. CLL: Continue chronic prednisone #. Insulin-dependent diabetes mellitus: Basal plus insulin regimen #. Mood disorder: Continue home mood stabilizers #. Mixed hyperlipidemia: On statin DVT prophylaxis: [employer] Quality Stroke Does the patient have a stroke diagnosis?: No VTE Prior VTE?: No VTE Risk Level:: Medical - moderate - high VTE Device Contraindication: Treatment Not Indicated VTE Drug Contraindication: N/A - Med Ordered
[2023-02-10 12:16] LABS: Anion Gap 10 (12-20); Blood Urea Nitrogen 27 mg/dL (9-16); Calcium 8.4 mg/dL (8.4-10.2); Carbon Dioxide 33 mmol/L (22-29); Chloride 103 mmol/L (96-108); Creatinine Clr Calc Pharmacy 43.3; Estimated Glomerular Filt Rate 36; Glucose Random 145 mg/dL (60-115); Potassium 3.4 mmol/L (3.3-5.1); Sodium 143 mmol/L (135-145)
[2023-02-10 16:16] LABS: Glucose, Whole Blood 213 mg/dL (60-115)
[2023-02-10] MEDS: Insulin Lispro 100 UNIT/ML 3 ML VIAL SUBCUT ×2 (17:13→21:43)
[2023-02-10 20:43] LABS: Glucose, Whole Blood 202 mg/dL (60-115)
[2023-02-10] MEDS: Atorvastatin Calcium 10 MG TABLET PO (21:42)
[2023-02-10] MEDS: chlordiazePOXIDE HCl 5 MG CAPSULE 10 MG PO (21:42)
[2023-02-10] MEDS: Melatonin 3 MG TABLET 6 MG PO (21:43)
[2023-02-10 22:21] LABS: Appearance Urine Turbid; Color Urine Yellow; Glucose Urine UA Negative (Negative); Leukocyte Esterase Urine Large (3+) (Negative); Nitrite Urine Positive (Negative); PH 5.5 (5.0-9.0); UMIC TRIGGER UACC YES; Urine Blood Moderate (2+) (Negative); Urine Ketones Negative (Negative); Urine Protein 30 (1+) mg/dL (Neg-Trace)
[2023-02-10] MEDS: Acetaminophen 325 MG TABLET 650 MG PO (22:22)
[2023-02-10 22:33] LABS: Bacteria Urine 4+ (None Seen); Squamous Epithelial Cell Urine 0-2 /HPF (0-2); UACC Culture Trigger YES; WBC Urine >50 /HPF (0-5)
[2023-02-11] VITALS (9 sets, daily range): BP systolic 100–115; BP diastolic 44–51; PULSE 69–100; RESP 16–20; TEMP 36.1–36.7; O2SAT 96–100
[2023-02-11] MEDS: Levothyroxine Sodium 175 MCG TABLET PO (06:13)
[2023-02-11 07:22] LABS: Glucose, Whole Blood 70 mg/dL (60-115)
[2023-02-11] MEDS: Albuterol/Iprat 2.5/0.5MG 3 ML AMPUL.NEB INHALE ×4 (08:07→19:09)
[2023-02-11] MEDS: Fluticasone/Vilanterol 200/25 BLST.W.DEV 1 PUFF INHALE (08:07)
[2023-02-11] MEDS: Bumetanide 1 MG/4 ML VIAL 2 MG IVPUSH ×2 (09:35→17:04)
[2023-02-11] MEDS: SITagliptin Phosphate 100 MG TABLET PO (09:35)
[2023-02-11] MEDS: amLODIPine Besylate 10 MG TABLET PO (09:36)
[2023-02-11] MEDS: Hydroxychloroquine Sulfate 200 MG TABLET PO ×2 (09:36→21:17)
[2023-02-11] MEDS: predniSONE 1 MG TABLET 6 MG PO (09:36)
[2023-02-11] MEDS: hydrOXYzine HCL 25 MG TABLET PO (09:36)
[2023-02-11] MEDS: guaiFENesin LA 600 MG TAB.ER.12H PO ×2 (09:36→21:18)
[2023-02-11] MEDS: Magnesium Oxide 400 MG TABLET 200 MG PO (09:36)
[2023-02-11] MEDS: LORazepam 0.5 MG TABLET PO ×2 (09:36→21:18)
[2023-02-11] MEDS: Escitalopram Oxalate 10 MG TABLET PO (09:36)
[2023-02-11] MEDS: Artificial Tears 15 ML DROPS 1 DROP EYE-BOTH ×2 (09:37→21:22)
[2023-02-11] MEDS: diphenhydrAMINE HCl 2 % Cream 28 GM TUBE 1 APPL TOPICAL ×2 (09:38→21:22)
[2023-02-11] MEDS: prednisoLONE Acetate 1 % Oph Susp 5 ML DRPBTL 1 DROP EYE-RIGHT (09:38)
[2023-02-11] MEDS: timoloL maleate 0.5 % Oph Sol 5 ML DRBTL 1 DROP EYE-RIGHT ×2 (09:38→21:23)
[2023-02-11] MEDS: Brimonidine Tartrate 0.2% Oph 5 ML BOTTLE 1 DROP EYE-RIGHT ×2 (09:38→21:24)
[2023-02-11] MEDS: Heparin Sodium,Porcine Flush 50 UNITS/5 ML SYRINGE IVFLUSH ×2 (09:38→17:02)
[2023-02-11] MEDS: Dorzolamide HCl 2 % Ophth Sol 10 ML DRPBTL 1 DROP EYE-RIGHT ×2 (09:38→21:25)
[2023-02-11] MEDS: Enoxaparin Sodium 40 MG/0.4 ML SYRINGE SUBCUT (09:39)
--- NOTE | 2023-02-11 10:19 | MHC.CM.PN ---
Per ROUNDS discussion, Patient is not yet medically cleared for dc (IV Bumex); returning to [facility] is the goal and CM will continue to follow.
[2023-02-11 11:16] LABS: Glucose, Whole Blood 117 mg/dL (60-115)
--- NOTE | 2023-02-11 13:50 | HO.PM.IMPN ---
Subjective Subjective Date of Service: 02/11/23 Interval History: f/u on acute on chronic respiratory failure due heart failure and copd. Better following BiPAP use at night Physical Exam Vital Signs: Vital Signs: Last Vital Signs Temp 97.9 F 02/11/23 11:21 Pulse 79 02/11/23 11:40 Resp 20 02/11/23 11:40 BP 103/44 L 02/11/23 11:21 Pulse Ox 100 02/11/23 11:21 O2 Del Method Nasal Cannula 02/11/23 11:21 O2 Flow Rate 4 02/11/23 11:21 Oxygen Flow Rate 3 02/08/23 00:58 BMI result Body Mass Index 44.1 Const: Other: General: AO X 3, no acute distress Resp: CTA bilateral CVS: S1,S2,RRR GI: +BS, NT, no distention Skin: No rash Neuro: motor grossly intact Psych: appropriate affect Objective Data Active Medications Acetaminophen (Acetaminophen 325 Mg Tablet) 650 mg PO Q6H PRN PRN Reason: Pain, Mild (Pain Scale 1-3) Last Admin: 02/10/23 22:22 Dose: 650 mg Documented By: JEREMIAH Acetaminophen/Butalbital/Caffeine (Butalb/Acetamin/Caff 50/325/40 Tablet) 1 tab PO Q6H PRN PRN Reason: Headache Albuterol/Ipratropium (Albuterol/Iprat 2.5/0.5mg 3 Ml Ampul.Neb) 3 ml INHALE RQ4H WHILE AWAKE [facility] Last Admin: 02/11/23 11:38 Dose: 3 ml Documented By: REYMUNDO Amlodipine Besylate (Amlodipine Besylate 10 Mg Tablet) 10 mg PO DAILY [facility]; Protocol Last Admin: 02/11/23 09:36 Dose: 10 mg Documented By: RK Artificial Tears (Artificial Tears 15 Ml Drops) 1 drop EYE-BOTH BID [facility] Last Admin: 02/11/23 09:37 Dose: 1 drop Documented By: RK Atorvastatin Calcium (Atorvastatin Calcium 10 Mg Tablet) 10 mg PO BEDTIME [facility] Last Admin: 02/10/23 21:42 Dose: 10 mg Documented By: JEREMIAH Bisacodyl (Bisacodyl 10 Mg Supp.Rect) 10 mg [place] DAILY PRN PRN Reason: Constipation Brimonidine Tartrate (Brimonidine Tartrate 0.2% Oph 5 Ml Bottle) 1 drop EYE-RIGHT BID [facility] Last Admin: 02/11/23 09:38 Dose: 1 drop Documented By: RK Bumetanide (Bumetanide 1 Mg/4 Ml Vial) 2 mg IVPUSH BID@0800,1700 [facility]; Protocol Last Admin: 02/11/23 09:35 Dose: 2 mg Documented By: RK Chlordiazepoxide HCl (Chlordiazepoxide Hcl 5 Mg Capsule) 10 mg PO BEDTIME [facility] Last Admin: 02/10/23 21:42 Dose: 10 mg Documented By: JEREMIAH Dextrose (Dextrose 50 % 25 Gm/50 Ml Syringe) 25 gm IVPUSH Q15M PRN; Protocol PRN Reason: per Hypoglycemia Standing Ord. Dorzolamide HCl (Dorzolamide Hcl 2 % Ophth Mona 10 Ml Drpbtl) 1 drop EYE-RIGHT BID [facility] Last Admin: 02/11/23 09:38 Dose: 1 drop Documented By: RK Enoxaparin Sodium (Enoxaparin Sodium 40 Mg/0.4 Ml Syringe) 40 mg SUBCUT Q24H [facility] Last Admin: 02/11/23 09:39 Dose: 40 mg Documented By: RK Escitalopram Oxalate (Escitalopram Oxalate 10 Mg Tablet) 10 mg PO DAILY [facility] Last Admin: 02/11/23 09:36 Dose: 10 mg Documented By: RK Fluticasone/Vilanterol (Fluticasone/Vilanterol 200/25 Blst.W.Dev) 1 puff INHALE RDAILY [facility] Last Admin: 02/11/23 08:07 Dose: 1 puff Documented By: GLUPORSHA Glucose (Glucose Gel 15 Gm Gel..Gram.) 15 gm PO Q15M PRN; Protocol PRN Reason: per Hypoglycemia Standing Ord. Guaifenesin (Guaifenesin La 600 Mg Tab.Er.12h) 600 mg PO BID [facility] Last Admin: 02/11/23 09:36 Dose: 600 mg Documented By: RK Heparin Sodium (Porcine) (Heparin Sodium,Porcine Flush 50 Units/5 Ml Syringe) 50 units IVFLUSH QSHIFT [facility] Last Admin: 02/11/23 09:38 Dose: 50 units Documented By: RK Hydroxychloroquine Sulfate (Hydroxychloroquine Sulfate 200 Mg Tablet) 200 mg PO BID [facility] Last Admin: 02/11/23 09:36 Dose: 200 mg Documented By: RK Hydroxyzine HCl (Hydroxyzine Hcl 25 Mg Tablet) 25 mg PO DAILY [facility] Last Admin: 02/11/23 09:36 Dose: 25 mg Documented By: RK Insulin Glargine (Insulin Glargine,Hum.Rec.Anlog 100 Unit/Ml 10 Ml Vial) 16 unit SUBCUT BID [facility] Last Admin: 02/11/23 10:37 Dose: Not Given Documented By: RK Non-Admin Reason: No Insulin Coverage Insulin Human Lispro (Insulin Lispro 100 Unit/Ml 3 Ml Vial) 0 unit SUBCUT QIDACHS [facility]; Protocol Last Admin: 02/11/23 11:19 Dose: Not Given Documented By: RK Non-Admin Reason: No Insulin Coverage Latanoprost (Latanoprost 0.005 % Ophth Mona 2.5 Ml Drops) 1 drop EYE-BOTH BEDTIME [facility] Last Admin: 02/10/23 23:18 Dose: Not Given Documented By: JEREMIAH Non-Admin Reason: Med Not Available Levothyroxine Sodium (Levothyroxine Sodium 175 Mcg Tablet) 175 mcg PO DAILY@0600 [facility] Last Admin: 02/11/23 06:13 Dose: 175 mcg Documented By: JEREMIAH Loperamide HCl (Loperamide Hcl 2 Mg Capsule) 2 mg PO Q4H PRN PRN Reason: Diarrhea Lorazepam (Lorazepam 0.5 Mg Tablet) 0.5 mg PO BID [facility] Last Admin: 02/11/23 09:36 Dose: 0.5 mg Documented By: RK Magnesium Hydroxide (Milk Of Magnesia 30 Ml Oral.Susp) 30 ml PO DAILY PRN PRN Reason: Constipation Magnesium Oxide (Magnesium Oxide 400 Mg Tablet) 200 mg PO DAILY [facility] Last Admin: 02/11/23 09:36 Dose: 200 mg Documented By: RK Melatonin (Melatonin 3 Mg Tablet) 6 mg PO BEDTIME PRN PRN Reason: Insomnia Melatonin (Melatonin 3 Mg Tablet) 6 mg PO BEDTIME [facility] Last Admin: 02/10/23 21:43 Dose: 6 mg Documented By: JEREMIAH Non-Formulary Medication (Acalabrutinib Maleate [Calquence (Acalabrutinib Mal)]) 100 mg PO BID [facility] Nystatin (Nystatin Powder 15 Gm Bottle) 1 appl TOPICAL BID [facility]; Protocol Last Admin: 02/11/23 11:18 Dose: Not Given Documented By: RK Non-Admin Reason: Previously Administered Ondansetron HCl (Ondansetron Hcl 4 Mg/2 Ml Vial) 4 mg IVPUSH Q8H PRN PRN Reason: Nausea and Vomiting Prednisolone Acetate (Prednisolone Acetate 1 % Oph Susp 5 Ml Drpbtl) 1 drop EYE-RIGHT DAILY [facility] Last Admin: 02/11/23 09:38 Dose: 1 drop Documented By: RK Prednisone (Prednisone 1 Mg Tablet) 6 mg PO DAILY [facility] Last Admin: 02/11/23 09:36 Dose: 6 mg Documented By: RK Senna (Sennosides 8.6 Mg Tablet) 17.2 mg PO DAILY PRN PRN Reason: Constipation Sitagliptin Phosphate (Sitagliptin Phosphate 100 Mg Tablet) 100 mg PO DAILY [facility] Last Admin: 02/11/23 09:35 Dose: 100 mg Documented By: RK Sodium Biphosphate/Sodium Phosphate (Sodium Phosphate,[place]-Dibasic 133 Ml Enema) 133 ml [place] DAILY PRN PRN Reason: Constipation Sodium Chloride (0.9 % Sodium Chloride Flush 3 Ml Syringe) 3 ml IVFLUSH QSHIFT [facility] Last Admin: 02/11/23 10:37 Dose: Not Given Documented By: RK Non-Admin Reason: Previously Administered Timolol Maleate (Timolol Maleate 0.5 % Oph Mona 5 Ml Drbtl) 1 drop EYE-RIGHT BID [facility] Last Admin: 02/11/23 09:38 Dose: 1 drop Documented By: RK Tiotropium [place] (Tiotropium [place] 2.5 Mcg Inhaler) 2 puff INHALE RDAILY [facility] Last Admin: 02/11/23 08:07 Dose: 2 puff Documented By: REYMUNDO Zinc Acetate/Diphenhydramine (Diphenhydramine Hcl 2 % Cream 28 Gm Tube) 1 appl TOPICAL BID [facility]; Protocol Last Admin: 02/11/23 09:38 Dose: 1 appl Documented By: RK Labs 02/08/23 05:01 11/09/23 11:46 Labs: Laboratory Results - last 24 hr 02/10/23 02/10/23 02/10/23 16:11 20:24 22:11 POC Glucose 213 H 202 H Urine Color Yellow Urine Appearance Turbid Urine pH 5.5 Ur Specific [place] 1.010 Urine Protein 30 (1+) H Urine Glucose (UA) Negative Urine Ketones Negative Urine Blood Moderate (2+) H Urine Nitrite Positive H Ur Leukocyte Esterase Large (3+) H Urine RBC 11-20 H Urine WBC >50 H Ur Squamous Epith Cells 0-2 Urine Bacteria 4+ Hyaline Casts 6-10 02/11/23 02/11/23 07:18 11:07 POC Glucose 70 117 H Urine Color Urine Appearance Urine pH Ur Specific [place] Urine Protein Urine Glucose (UA) Urine Ketones Urine Blood Urine Nitrite Ur Leukocyte Esterase Urine RBC Urine WBC Ur Squamous Epith Cells Urine Bacteria Hyaline Casts Microbiology Microbiology Results: Microbiology 02/10/23 Unknown Urine Culture - Preliminary Urine clean catch - Urine malik top Culture in progress. Assessment and Plan (1) Congestive heart failure: Status: Acute Plan This is a 72-year-old female with pertinent history of congestive heart failure with preserved ejection fraction, chronic kidney disease, CLL, chronic hypoxemic respiratory failure due to COPD, obesity, obstructive sleep apnea, essential hypertension, mood disorder, hypothyroidism, insulin-dependent diabetes mellitus who presents to the emergency department for evaluation of dyspnea. #. Acute on chronic hypoxemic respiratory failure due to acute on chronic congestive heart failure with preserved ejection fraction. She is better today, continue IV Bumex, follow BMP. Pulmonology input noted. Doing better, change to PO Bumex #. Chronic kidney disease: Creatinine at baseline. Monitor with diuresis. Avoid nephrotoxins #. Essential hypertension: Continue home antihypertensives #. COPD: Continue inhalers, BiPAP at night and PRN during the day #. Morbid obesity: Recommend low-calorie diet. #. Hypothyroidism: On Synthroid #. CLL: Continue chronic prednisone #. Insulin-dependent diabetes mellitus: Basal plus insulin regimen #. Mood disorder: Continue home mood stabilizers #. Mixed hyperlipidemia: On statin DVT prophylaxis: Lovenox DC tomorrow if continues to make progress Quality Stroke Does the patient have a stroke diagnosis?: No VTE Prior VTE?: No VTE Risk Level:: Medical - moderate - high VTE Device Contraindication: Treatment Not Indicated VTE Drug Contraindication: N/A - Med Ordered
[2023-02-11 16:37] LABS: Glucose, Whole Blood 206 mg/dL (60-115)
[2023-02-11] MEDS: Insulin Lispro 100 UNIT/ML 3 ML VIAL SUBCUT ×2 (17:02→21:18)
[2023-02-11] MEDS: 0.9 % Sodium Chloride Flush 3 ML SYRINGE IVFLUSH (17:03)
[2023-02-11 21:05] LABS: Glucose, Whole Blood 189 mg/dL (60-115)
[2023-02-11] MEDS: Atorvastatin Calcium 10 MG TABLET PO (21:17)
[2023-02-11] MEDS: Melatonin 3 MG TABLET 6 MG PO (21:18)
[2023-02-11] MEDS: Insulin Glargine,Hum.rec.anlog 100 UNIT/ML 10 ML VIAL 16 UNIT SUBCUT (21:19)
[2023-02-11] MEDS: chlordiazePOXIDE HCl 5 MG CAPSULE 10 MG PO (21:20)
[2023-02-11] MEDS: Acetaminophen 325 MG TABLET 650 MG PO (21:21)
[2023-02-11] MEDS: Nystatin Powder 15 GM BOTTLE 1 APPL TOPICAL (21:30)
[2023-02-11 23:35] LABS: Glucose, Whole Blood 165 mg/dL (60-115)
[2023-02-12] VITALS (8 sets, daily range): BP systolic 98–115; BP diastolic 44–53; PULSE 68–85; RESP 16–20; TEMP 36.1–36.6; O2SAT 95–100
[2023-02-12] MEDS: Levothyroxine Sodium 175 MCG TABLET PO (06:18)
[2023-02-12] MEDS: Fluticasone/Vilanterol 200/25 BLST.W.DEV 1 PUFF INHALE (07:36)
[2023-02-12] MEDS: Albuterol/Iprat 2.5/0.5MG 3 ML AMPUL.NEB INHALE ×2 (07:36→11:06)
[2023-02-12 07:43] LABS: Glucose, Whole Blood 89 mg/dL (60-115)
[2023-02-12] MEDS: 0.9 % Sodium Chloride Flush 3 ML SYRINGE IVFLUSH (08:45)
[2023-02-12] MEDS: Bumetanide 1 MG/4 ML VIAL 2 MG IVPUSH (08:45)
[2023-02-12] MEDS: Heparin Sodium,Porcine Flush 50 UNITS/5 ML SYRINGE IVFLUSH ×2 (08:46)
[2023-02-12] MEDS: amLODIPine Besylate 10 MG TABLET PO (08:46)
[2023-02-12] MEDS: Artificial Tears 15 ML DROPS 1 DROP EYE-BOTH (08:46)
[2023-02-12] MEDS: Brimonidine Tartrate 0.2% Oph 5 ML BOTTLE 1 DROP EYE-RIGHT (08:47)
[2023-02-12] MEDS: Dorzolamide HCl 2 % Ophth Sol 10 ML DRPBTL 1 DROP EYE-RIGHT (08:47)
[2023-02-12] MEDS: diphenhydrAMINE HCl 2 % Cream 28 GM TUBE 1 APPL TOPICAL (08:47)
[2023-02-12] MEDS: Enoxaparin Sodium 40 MG/0.4 ML SYRINGE SUBCUT (08:47)
[2023-02-12] MEDS: Magnesium Oxide 400 MG TABLET 200 MG PO (08:48)
[2023-02-12] MEDS: Hydroxychloroquine Sulfate 200 MG TABLET PO (08:48)
[2023-02-12] MEDS: guaiFENesin LA 600 MG TAB.ER.12H PO (08:48)
[2023-02-12] MEDS: LORazepam 0.5 MG TABLET PO (08:48)
[2023-02-12] MEDS: Escitalopram Oxalate 10 MG TABLET PO (08:48)
[2023-02-12] MEDS: Nystatin Powder 15 GM BOTTLE 1 APPL TOPICAL (08:48)
[2023-02-12] MEDS: hydrOXYzine HCL 25 MG TABLET PO (08:48)
[2023-02-12] MEDS: timoloL maleate 0.5 % Oph Sol 5 ML DRBTL 1 DROP EYE-RIGHT (08:49)
[2023-02-12] MEDS: prednisoLONE Acetate 1 % Oph Susp 5 ML DRPBTL 1 DROP EYE-RIGHT (08:49)
[2023-02-12] MEDS: predniSONE 1 MG TABLET 6 MG PO (08:49)
[2023-02-12] MEDS: SITagliptin Phosphate 100 MG TABLET PO (08:49)
--- NOTE | 2023-02-12 09:46 | PM.DS ---
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 Patient states it started 1 day prior to presentation. She was found to be hypoxemic at outside facility on her home O2. Does endorse orthopnea and leg swelling. No fever, chills, chest discomfort, palpitations, abdominal pain, changes in urinary or bowel habits. In the emergency department, patient was placed on supplemental oxygen and initiated on IV diuresis. Chest x-ray with pulmonary vascular congestion and pulmonary edema Hospital course: Patient with underlying heart failure with presevered EF and presented with shortness of breath, hypoxia and was found to have acute hypoxic respiratory failure due to setting of decompensated heart failure and was initated on IV diuretics and BiPAP therapy and has done well over the course of hospitalization. The hypoxia has resolved. AT this point will transition to oral Bumex home dose. She was seen consultation by the lung doctor who recommended BiPAP at night which she used succesfully. She is presently saturating 100 % on 3 liters by nasal canuly Chronic kidney disease: Creatinine at baseline. Essential hypertension: Continue home antihypertensives COPD: Continue inhalers, BiPAP at night and PRN during the day Morbid obesity: Recommend low-calorie diet. Hypothyroidism: On Synthroid CLL: Continue chronic prednisone and follow up with her oncologist as previously arranged Insulin-dependent diabetes mellitus: resume outpatient regimen Mood disorder: Continue home mood stabilizers Mixed hyperlipidemia: On statin Time Attestation Discharge coordination time: Greater than 30 minutes Quality: Safe Use of Opioids Does Pt have an Active Cancer Diagnosis on the Problem List?: No Quality: Stroke Does the patient have a stroke diagnosis?: No Physical Exam Vital Signs: Vital Signs: Last Vital Signs Temp 97.9 F 02/12/23 07:34 Pulse 73 02/12/23 07:40 Resp 20 02/12/23 07:40 BP 115/47 L 02/12/23 07:34 Pulse Ox 100 02/12/23 07:34 O2 Del Method Nasal Cannula 02/12/23 07:34 O2 Flow Rate 3 02/12/23 07:34 Oxygen Flow Rate 3 02/08/23 00:58 BMI result Body Mass Index 44.1 Const: Other: General: AO X 3, no acute distress Resp: CTA bilateral CVS: S1,S2,RRR GI: +BS, NT, no distention Skin: No rash Neuro: motor grossly intact Psych: appropriate affect DS: Data Data Completed and Pending Completed studies during hospitalization [Text1]: Procedures Labs on day of discharge: Laboratory Results - last 24 hr 02/11/23 02/11/23 02/11/23 11:07 16:33 20:18 POC Glucose 117 H 206 H 189 H 02/11/23 02/12/23 23:25 07:26 POC Glucose 165 H 89 Preliminary micro results at discharge 02/10/23 Unknown Urine Culture - Preliminary Urine clean catch - Urine malik top Culture in progress. Discharge Plan Discharge Anticipated Discharge Date/Time: 02/12/23 09:38 Patient Disposition: Xfer SNF Discharge Diagnosis: Acute hypoxic respriatory failure, Acute heart failure Referrals: Yair Soriano [Outside] - 1 Week Tam Corea MD [Primary Care Provider] - 1 Week Discharge Medications: Continued levothyroxine 175 mcg tablet 175 mcg PO DAILY@0600 citalopram 20 mg tablet 20 mg PO DAILY simvastatin 20 mg tablet 20 mg PO BEDTIME chlordiazepoxide HCl 10 mg capsule 10 mg PO BEDTIME insulin lispro protamin-lispro 100 unit/mL (75-25) insulin pen 0 unit subcut QIDACHS Protocol: Insulin Correction Scale Less than or equal to 110 ---- Give (units): 0 111 to 150 Give (units): 0 151 to 200 Give (units): 2 201 to 250 Give (units): 4 251 to 300 Give (units): 6 301 to 350 Give (units): 8 Greater than 350 Give (units): 10 Call MD if Blood Glucose > : 350 Januvia 100 mg tablet 100 mg PO DAILY Fleet Enema 19-7 gram/118 mL Enema 118 ml NC DAILY PRN (Reason: Constipation) guaifenesin 600 mg Tablet Extended Release 12hr 600 mg PO BID acetaminophen [Tylenol] 325 mg Tablet 650 mg PO Q4H PRN (Reason: Pain (Scale Score 4-6)) lorazepam 0.5 mg tablet 0.5 mg PO BID bisacodyl 10 mg Suppository 10 mg NC DAILY PRN (Reason: Constipation) hydroxyzine HCl 25 mg tablet 25 mg PO DAILY hydroxychloroquine 200 mg tablet 200 mg PO BID magnesium 200 mg Tablet 200 mg PO DAILY biotin 5 mg Tablet 5 mg PO DAILY riboflavin (vitamin B2) 400 mg Tablet 400 mg PO DAILY Incruse Ellipta 62.5 mcg/actuation Blister With Device 1 inh INHALATION DAILY budesonide-formoterol [Symbicort] 160-4.5 mcg/actuation Hfa Aerosol Inhaler 2 puff INHALATION BID latanoprost 0.005 % drops 1 drp ophthalmic (eye) BEDTIME Rx Instructions: 1 drop into both eyes albuterol sulfate 0.63 mg/3 mL Solution For Nebulization 0.63 mg INHALATION Q2H PRN (Reason: Shortness Of Breath Or Wheezing) sennosides [senna] 8.6 mg Tablet 17.2 mg PO DAILY PRN (Reason: Constipation) yblgsnspng-bvszvzgrkhrvv-srvm 50-325-40 mg tablet 1 tab PO Q6H PRN (Reason: Headache) prednisolone acetate 1 % drops,suspension 1 drp ophthalmic-Right DAILY timolol maleate 0.5 % drops 1 drp ophthalmic-Right BID coenzyme Q10 [CoQ-10] 100 mg Capsule 150 mg PO DAILY melatonin 5 mg Tablet 5 mg PO BEDTIME Simbrinza 1-0.2 % drops,suspension 1 drp ophthalmic-Right BID Artificial Tears (cmc) 1 % Drops 1 drp OPHTHALMIC (EYE) BID magnesium hydroxide [Milk of Magnesia] 400 mg/5 mL Suspension 30 ml PO DAILY PRN (Reason: Constipation) loperamide 2 mg capsule 2 mg PO Q4H PRN (Reason: Diarrhea) Calquence (acalabrutinib mal) 100 mg tablet 100 mg PO BID levalbuterol HCl 1.25 mg/3 mL Solution For Nebulization 1.25 mg INHALATION QID potassium chloride 20 mEq Tablet,Er Particles/Crystals 40 meq PO DAILY Qty: 30 0RF diphenhydramine-zinc acetate 2-0.1 % Cream 1 appl TOPICAL BID Rx Instructions: apply to groin/coccyx prednisone 1 mg Tablet 6 mg PO DAILY nystatin 100,000 unit/gram Powder 1 appl TOPICAL BID Rx Instructions: to abdominal folds No Action Acidophilus Tablet,Chewable 1 tab PO DAILY metolazone 5 mg Tablet 5 mg PO MOFR Qty: 8 0RF bumetanide 1 mg Tablet 3 mg PO BID@0800,1700 Qty: 180 0RF Protocol: Hold for SBP< HOLD for SBP < : 90 Jardiance 10 mg Tablet 10 mg PO DAILY Qty: 30 0RF Discharge Orders: Discharge Order (Routine); Ordered 02/12/23 Ordered By: Cameron Toribio Diet: Diabetic diet Activity on Discharge: As tolerated Stand Alone Forms: Patient Portal Discharge page Care Plan Goals: Control of heart failure and prevent rehospitalization Health Concerns: morbid obesity, heart failure, hypoventilation syndrome Plan of Treatment: Continue Bumex, monitor weight, monitor fluid intake, no more then 1.5 liters of water daily, if weight goes up by 2 ib a day notifiy provider Assessment: as above Discharge Date/Time: 02/12/23 14:00
[2023-02-12 10:25] LABS: Anion Gap 10 (12-20); Blood Urea Nitrogen 26 mg/dL (9-16); Calcium 8.6 mg/dL (8.4-10.2); Carbon Dioxide 35 mmol/L (22-29); Chloride 98 mmol/L (96-108); Creatinine Clr Calc Pharmacy 51.9; Estimated Glomerular Filt Rate 44; Glucose Random 157 mg/dL (60-115); Potassium 3.4 mmol/L (3.3-5.1); Sodium 140 mmol/L (135-145)
[2023-02-12 11:19] LABS: Glucose, Whole Blood 171 mg/dL (60-115)
--- NOTE | 2023-02-12 11:30 | MHC.CM.PN ---
Second IMM given 02/12. Pt is medically cleared for D/C back to [facility] for STR. Transport set up via [facility] at 1:30pm.
--- NOTE | 2023-02-12 12:34 | PC.NURSE ---
Turner removed 12:00. Pt DTV 18:00. Resource nurse relayed information to primary RN.
[2023-02-12] MEDS: Insulin Lispro 100 UNIT/ML 3 ML VIAL SUBCUT (13:26)
--- NOTE | 2023-02-13 15:50 | P.CDIM_ITS ---
PROVIDER RESPONSE TEXT: To clarify, the appropriate diagnosis supported by the clinical indicators: Other (explain): anemia of chronic disease related to cLL QUERY TEXT: PHYSICIAN'S DOCUMENTATION REQUEST Date of Query: 02/09/2023 10:23 AM EST Patient Name: Cindy Toney Admit Date: 02/08/2023 Dear Cameron Toribio, A review of the medical record indicates additional documentation may be needed. Please review below and update the documentation accordingly. Clinical Indicators: On 02/08/23, H&H 7.2/25.3 and 7.1/24.8 Patient is receiving Lovenox 40 mg subcut Q24H Based on the above, could you clarify which of the following is the most likely diagnosis you are eduardo luating, treating, and/or monitoring? Acute blood loss anemia Acute blood loss anemia with baseline chronic anemia (specify type) Anemia of chronic disease indicate if neoplastic disease, CKD, or other Chronic iron deficiency anemia due to blood loss Vitamin B12 deficiency anemia indicate etiology, such as intrinsic factor deficiency, malabsorption, transcobalamin II deficiency, dietary, etc Folate deficiency anemia indicate etiology, such as dietary, drug-induced, etc Anemia due to circulating anti-coagulant Other (explain) Clinically unable to determine (explain) Thank you, Vianney Lui RN Use of terms such as suspected, likely, concern for, or probable (associated with a specific diagnosi s that is being evaluated, monitored, or treated as if it exists) are acceptable and can be coded in the inpatient se tting, when documented at the time of discharge. Please use your independent medical judgment in providing your response. THIS QUERY IS PART OF THE PERMANENT MEDICAL RECORD
== END 2023-02-12 14:00 | disposition skilled nursing facility (03) | DRG 291 ==
LOC: HO.ED 02:39 → HO.EDOVER 03:55 → HO.S3 02-09 12:30 → HO.IMC 02-09 13:29
PROVIDERS: Admitting Provider Student in an Organized Health Care Education/Training Program; Emergency Provider Emergency Medicine Emergency Medical Services; PCP Internal Medicine; Visit Provider Internal Medicine
DX: I13.0 Hypertensive heart and chronic kidney disease with heart failure and stage 1 through stage 4 chronic kidney disease, or unspecified chronic kidney disease (principal); I50.33 Acute on chronic diastolic (congestive) heart failure; J96.21 Acute and chronic respiratory failure with hypoxia; E66.2 Morbid (severe) obesity with alveolar hypoventilation; Z68.41 Body mass index [BMI] 40.0-44.9, adult; C91.10 Chronic lymphocytic leukemia of B-cell type not having achieved remission; N18.30 Chronic kidney disease, stage 3 unspecified; D63.0 Anemia in neoplastic disease; D63.1 Anemia in chronic kidney disease; E03.9 Hypothyroidism, unspecified; E11.22 Type 2 diabetes mellitus with diabetic chronic kidney disease; E78.2 Mixed hyperlipidemia; G93.2 Benign intracranial hypertension; Z98.2 Presence of cerebrospinal fluid drainage device; Z87.891 Personal history of nicotine dependence; Z99.81 Dependence on supplemental oxygen; Z79.4 Long term (current) use of insulin; Z79.890 Hormone replacement therapy; Z79.899 Other long term (current) drug therapy
CPT/HCPCS: 36415; 36600; 71045; 80048; 80053; 81001; 82803; 82947; 83880; 84484; 85025; 87086; 87088; 87186; 92950; 93005; 93306; 94640; 94660; 94799; 99285; C1758; J1642; J1650; J1940; P9047; Q9957

== ENCOUNTER 2023-02-08 03:51 | Outpatient (BNV) | payer MEDICARE, MEDICAID, SELFPAY | END 2023-02-09 07:00 | PROVIDERS: Admitting Provider Student in an Organized Health Care Education/Training Program; Emergency Provider Emergency Medicine Emergency Medical Services; PCP Internal Medicine; Visit Provider Internal Medicine Cardiovascular Disease | DX: I35.0 Nonrheumatic aortic (valve) stenosis (principal) | CPT/HCPCS: 93306 ==

== ENCOUNTER → 2023-02-08 03:51 | Outpatient (BNV) | payer MEDICARE, MEDICAID, SELFPAY | PROVIDERS: Admitting Provider Student in an Organized Health Care Education/Training Program; Emergency Provider Emergency Medicine Emergency Medical Services; PCP Internal Medicine; Visit Provider Internal Medicine | DX: E66.01 Morbid (severe) obesity due to excess calories (principal); G47.33 Obstructive sleep apnea (adult) (pediatric); C91.10 Chronic lymphocytic leukemia of B-cell type not having achieved remission; I50.33 Acute on chronic diastolic (congestive) heart failure; D64.9 Anemia, unspecified | CPT/HCPCS: 99223 ==

== ENCOUNTER → 2023-02-08 03:51 | Outpatient (BNV) | payer MEDICARE, MEDICAID, SELFPAY | PROVIDERS: Admitting Provider Student in an Organized Health Care Education/Training Program; Emergency Provider Emergency Medicine Emergency Medical Services; PCP Internal Medicine; Visit Provider Student in an Organized Health Care Education/Training Program | DX: I50.9 Heart failure, unspecified (principal) | CPT/HCPCS: 99223; 99232; 99239; 99499 ==

== ENCOUNTER 2023-02-14 06:33 | Outpatient (REF) | payer MEDICARE, MEDICAID, SELFPAY ==
[2023-02-14 07:02] LABS: Basophils Absolute Auto 0.1 X10*3/uL (0.0-0.2); Basophils Percent Auto 0.4 % (0-2); Eosinophils Percent Auto 0.2 % (0-4); Hematocrit 28.1 % (37.0-47.0); Hemoglobin 7.9 g/dl (12.0-16.0); Imm Gran Abs Auto 0.23 X10*3/uL (0.00-0.03); Imm Gran Pct Auto 1.2 % (0.0-0.4); Lymphocytes Absolute Auto 0.9 X10*3/uL (1.2-4.9); Lymphocytes Percent Auto 4.6 % (20-40); MANUAL DIFF FLAG SCAN; Mean Corpuscular HGB Conc 28.1 g/dl (31.0-35.0); Mean Corpuscular Volume 88.9 fL (80.0-98.0); Monocytes Absolute Auto 1.5 X10*3/uL (0.1-1.2); Monocytes Percent Auto 7.8 % (2-11); Neutrophils Absolute Auto 16.8 x10*3/uL (2.0-8.3); Neutrophils Percent Auto 85.8 % (45-73); PLT CLUMP 1; Red Blood Count 3.16 X10*6/uL (4.20-5.50); Red Cell Distribution Width 14.9 % (11.0-16.0); SCAN SMEAR FLAG 1
[2023-02-14 07:03] LABS: Platelet Count 216 X10*3/uL (160-400); White Blood Count 19.6 X10*3/uL (4.8-10.8)
[2023-02-14 07:19] LABS: Anion Gap 15 (12-20); Blood Urea Nitrogen 31 mg/dL (9-16); Calcium 8.9 mg/dL (8.4-10.2); Carbon Dioxide 27 mmol/L (22-29); Chloride 101 mmol/L (96-108); Estimated Glomerular Filt Rate 31; Glucose Random 240 mg/dL (60-115); Potassium 5.1 mmol/L (3.3-5.1); Sodium 138 mmol/L (135-145)
[2023-02-14 07:42] LABS: SLIDE REVIEW VERIFIED
== END 2023-02-14 06:34 | disposition home or self-care (01) ==
LOC: HO.MMNH2L 06:33
PROVIDERS: Visit Provider Family Medicine
DX: Z13.89 Encounter for screening for other disorder (principal)
CPT/HCPCS: 36415; 80048; 85025

== ENCOUNTER 2023-02-14 18:34 | Inpatient (IN) | payer MEDICARE, MEDICAID, SELFPAY ==
--- NOTE | ~2023-02-14 | XR_ITS ---
EXAMINATION: PORTABLE CHEST 1 VIEW CLINICAL INFORMATION: sob. COMPARISON: 02/09/2023. TECHNIQUE: Portable frontal view of the chest was obtained. FINDINGS: Lungs mildly hypoexpanded. Layering bilateral pleural effusions of increased from the prior study. Bibasilar consolidation/atelectasis also worsened the prior study. There is central vascular prominence increased likely reflecting overt worsening pulmonary edema from the prior study. Cardiac silhouette is difficult to assess due to the basilar opacities. Extensive vascular calcification in the aorta and mitral annular region. Right AJ centimeters catheter tip near the expected cavoatrial junction. XR/XR chest 1V IMPRESSION: Although hypoexpanded, there is increased central vascular prominence and layering bilateral pleural effusions with associated basilar consolidation/atelectasis. Overall the appearance is more suggestive of worsening pulmonary edema when compared to the prior study.
--- NOTE | ~2023-02-14 | XR_ITS ---
EXAMINATION: XR CHEST CLINICAL INFORMATION: Hypoxia COMPARISON: Chest 02/14/2023 TECHNIQUE: AP semiupright portable view of the chest was obtained. 1308. FINDINGS: The patient is tilted and rotated. The lungs are mildly hypoexpanded. Narrowing bilateral pleural effusions mildly decreased though persistent on the left and decreased on the right. Some of these findings could be due to patient positioning. Bibasilar consolidation/atelectasis has improved on the right. Evaluation of the central vascularity is limited due to increased density in the midline and a triangular density projected over the right upper lobe which is likely external to the patient. There is no gross increase in vascular congestion and interstitial pulmonary edema. The cardiac silhouette is difficult to assess due to bibasilar opacities. There is extensive vascular calcification in the aorta and the mitral annular region. Right IJ catheter tip is near the expected cavoatrial junction. XR/XR chest 1V IMPRESSION: 1. Bilateral pleural effusions mildly decreased on the left and decreased on the right. 2. Bibasilar consolidation/atelectasis has improved on the right though some of this may be due to decrease in the right pleural effusion. 3. Evaluation is limited due to the tilt and rotation of the patient.
--- NOTE | ~2023-02-14 | XR_ITS ---
EXAMINATION: XR CHEST CLINICAL INFORMATION: Congestive heart failure COMPARISON: 02/15/2023 TECHNIQUE: Frontal view of the chest was obtained. FINDINGS: Heart is enlarged. Interval improvement of vascular congestion and diffuse pulmonary edema. Persistent opacity is still seen in the left lung base. Trace right pleural effusion is still present. XR/XR chest 1V IMPRESSION: Interval improvement of vascular congestion and pulmonary edema. Persistent opacity in the left lung base.
[2023-02-14 18:39] VITALS: BP 80/62; PULSE 78; O2SAT 98
--- NOTE | 2023-02-14 18:42 | ECG_ITS ---
Test Reason : sob Blood Pressure : / mmHG Vent. Rate : 075 BPM Atrial Rate : 075 BPM P-R Int : 206 ms QRS Dur : 112 ms QT Int : 430 ms P-R-T Axes : 016 089 -11 degrees QTc Int : 480 ms Normal sinus rhythm Incomplete right bundle branch block Nonspecific T wave abnormality Inferior leads Abnormal ECG When compared with ECG of 08-FEB-2023 01:21, QRS duration has increased Referred By: Karly Li Electronically Signed By:YONIS EVANS MD
--- NOTE | 2023-02-14 18:56 | ED_ITS ---
HPI - SOB/Dyspnea General Chief Complaint: Upper Respiratory Symptoms Stated Complaint: SOB ON NRB Time Seen by Provider: 02/14/23 18:56 Source: patient, family and EMS Mode of arrival: EMS Limitations: no limitations History of Present Illness HPI Narrative: Patient is 72 years old obese with history of suggestive heart failure with preserved ejection fraction, CKD, CLL, chronic hypoxemic respiratory failure due to COPD, obesity, obstructive sleep apnea not on CPAP, essential hypertension, mood disorder hypothyroidism and diabetes admitted on 02/08 for CHF discharged 02/12 to [facility] comes back here again as when daughter age [facility] patient noticed her little confused lethargic with increased short of breath with increase rhonchi, was placed on non-rebreather by the EMS saturating 99% on arrival no chest pain no fever Related Data Home Medications Medication Instructions Recorded Confirmed chlordiazepoxide HCl 10 mg capsule 10 mg PO BEDTIME 10/08/21 02/14/23 citalopram 20 mg tablet 20 mg PO DAILY 10/08/21 02/14/23 insulin lispro protamine-lispro 0 unit subcut QIDACHS 10/08/21 02/14/23 100 unit/mL (75-25) subcutaneous pen levothyroxine 175 mcg tablet 175 mcg PO DAILY@0600 10/08/21 02/14/23 simvastatin 20 mg tablet 20 mg PO BEDTIME 10/08/21 02/14/23 sitagliptin phosphate 100 mg 100 mg PO DAILY 10/08/21 02/14/23 tablet (Januvia) latanoprost 0.005 % eye drops 1 drp ophthalmic (eye) BEDTIME 11/20/21 02/14/23 albuterol sulfate 0.63 mg/3 mL 0.63 mg inhalation Q2H PRN 02/16/22 02/14/23 solution for nebulization Shortness Of Breath Or Wheezing brinzolamide 1 %-brimonidine 0.2 % 1 drp ophthalmic-Right BID 02/16/22 02/14/23 eye drops,suspension (Simbrinza) wtmtunxfoe-fwkcievbouwrn-giohffkj 1 tab PO Q6H PRN Headache 02/16/22 02/14/23 50 mg-325 mg-40 mg tablet coenzyme Q10 100 mg capsule 150 mg PO DAILY 02/16/22 02/14/23 (CoQ-10) insulin glargine 100 unit/mL (3 16 unit subcut BID 02/16/22 02/14/23 mL) subcutaneous pen (Lantus Solostar U-100 Insulin) melatonin 5 mg tablet 5 mg PO BEDTIME 02/16/22 02/14/23 prednisolone acetate 1 % eye 1 drp ophthalmic-Right DAILY 02/16/22 02/14/23 drops,suspension sennosides 8.6 mg tablet (senna) 17.2 mg PO DAILY PRN Constipation 02/16/22 02/14/23 timolol maleate 0.5 % eye drops 1 drp ophthalmic-Right BID 02/16/22 02/14/23 carboxymethylcellulose sodium 1 % 1 drp ophthalmic (eye) BID 03/15/22 02/14/23 eye drops (Artificial Tears (carboxymethylcellulose)) budesonide-formoterol HFA 160 2 puff inhalation BID 04/27/22 02/14/23 mcg-4.5 mcg/actuation aerosol inhaler (Symbicort) umeclidinium 62.5 mcg/actuation 1 inh inhalation DAILY 04/27/22 02/14/23 blister powder for inhalation (Incruse Ellipta) acetaminophen 325 mg tablet 650 mg PO Q4H PRN Pain (Scale 06/08/22 02/14/23 (Tylenol) Score 4-6) amlodipine 10 mg tablet 10 mg PO DAILY high blood pressure 06/08/22 02/14/23 guaifenesin 600 mg tablet, 600 mg PO BID cough 06/08/22 02/14/23 extended release 12 hr sodium phosphates 19 gram-7 118 ml IL DAILY PRN Constipation 06/08/22 02/14/23 gram/118 mL enema (Fleet Enema) levalbuterol HCl 1.25 mg/3 mL 1.25 mg inhalation QID 07/30/22 02/14/23 solution for nebulization biotin 5 mg tablet 5 mg PO DAILY 08/11/22 02/14/23 bisacodyl 10 mg rectal suppository 10 mg IL DAILY PRN Constipation 08/11/22 02/14/23 hydroxychloroquine 200 mg tablet 200 mg PO BID 08/11/22 02/14/23 hydroxyzine HCl 25 mg tablet 25 mg PO DAILY 08/11/22 02/14/23 lorazepam 0.5 mg tablet 0.5 mg PO BID Anxiety 08/11/22 02/14/23 magnesium 200 mg tablet 200 mg PO DAILY 08/11/22 02/14/23 riboflavin (vitamin B2) 400 mg 400 mg PO DAILY 08/11/22 02/14/23 tablet diphenhydramine-zinc acetate 2 1 appl topical BID 10/27/22 02/14/23 %-0.1 % topical cream nystatin 100,000 unit/gram topical 1 appl topical BID 10/27/22 02/14/23 powder prednisone 1 mg tablet 6 mg PO DAILY 10/27/22 02/14/23 bumetanide 1 mg tablet 2 mg PO BID@0900,1400 12/31/22 02/14/23 acalabrutinib maleate 100 mg 100 mg PO BID 02/08/23 02/14/23 tablet (Calquence (acalabrutinib maleate)) loperamide 2 mg capsule 2 mg PO Q4H PRN Diarrhea 02/08/23 02/14/23 magnesium hydroxide 400 mg/5 mL 30 ml PO DAILY PRN Constipation 02/08/23 02/14/23 oral suspension (Milk of Magnesia) Lactobacillus acidophilus 1 tab PO DAILY 02/14/23 02/14/23 (Acidophilus chewable tablet) Previous Rx's Medication Instructions Recorded potassium chloride 20 mEq 40 meq (2 x 20 mEq) PO DAILY #30 08/06/22 tablet,extended release(part/cryst) tabs Allergies Allergy/AdvReac Type Severity Reaction Status Date / Time oxycodone [From Percocet] Allergy Intermediate Rash Verified 02/14/23 19:05 lisinopril Allergy Unknown Unknown Verified 02/14/23 19:05 metoprolol AdvReac Severe bradycardia Verified 02/14/23 19:05 Review of Systems 2 Review of Systems: Yes all other systems are reviewed and are negative [facility] Past Medical History Medical History Anemia Hypoventilation associated with obesity COVID Congestive heart failure CKD (chronic kidney disease) stage 3, GFR 30-59 ml/min Acute respiratory failure with hypoxia Rash Heart block AV second degree Morbid obesity Acute UTI Acute kidney injury superimposed on CKD Bradycardia Pleural effusion Acute respiratory failure Pneumonia due to COVID-19 virus Chronic lymphocytic leukemia (CLL), B-cell Dyspnea Congestive heart failure COVID-19 Hypoxia Influenza A CLL (chronic lymphocytic leukemia) Suspected deep tissue injury Klebsiella pneumonia Infection with ESBL Klebsiella oxytoca Lymphadenopathy, mediastinal Pleural effusion Congestive heart failure Essential hypertension COVID Lower extremity edema Migraine HTN (hypertension) Pseudotumor cerebri PVD (peripheral vascular disease) Obesity CKD (chronic kidney disease) Diabetes mellitus with insulin therapy Hypothyroidism HLD (hyperlipidemia) Surgical History S/P appendectomy H/O cataract extraction H/O hysterectomy for benign disease Hx of cholecystectomy Family History Family History Mother Heart attack, Onset Age: 92 Father Heart attack, Onset Age: 66 Other Diabetes Social History Social History Household Members: Other Household Members Other:: Assisted living facility Housing: Assisted Living Facility Alcohol intake: former Patient Tobacco Use Status: Former Tobacco user Second Hand Smoke Exposure: No Advance Directives: No Advance Directives Information Provided: No Advance Directives Date on File: 09/26/20 service: No Current occupational status: disabled Physical Exam 2 Vital Signs: Vital Signs: Last Vital Signs Temp 99.6 F 02/14/23 19:05 Pulse 78 02/14/23 22:48 Resp 32 H 02/14/23 22:48 BP 112/34 L 02/14/23 22:48 Pulse Ox 93 02/14/23 22:48 O2 Del Method Oxymask 02/14/23 22:48 O2 Flow Rate 4 02/14/23 22:48 Oxygen Flow Rate 12 02/14/23 19:05 BMI result Body Mass Index 45.8 Appearance: Alert. Oriented X3. Mild respiratory distress obese patient on 100% non-rebreather saturating 100% Eyes: PERRLA, ENT: Pharynx normal. Oral Mucosa moist Neck: Normal inspection. Neck supple. CVS: Normal heart rate and rhythm. Pulses normal. Respiratory: Mild respiratory distress. Equal air entry bilateral, bilateral wheezing with crackles at base Abdomen: Soft and nontender. Bowel sounds are present, no mass palpable, Skin: Skin warm and dry. Normal skin color. Normal skin turgor. Extremities: No lower extremity edema. No calf tenderness Neuro: Oriented X 3. No motor deficit. Medications Administered Generic Name Dose Route Start Last Admin Trade Name Freq PRN Reason Stop Dose Admin Enoxaparin Sodium 40 mg 02/14/23 21:45 02/14/23 22:34 Enoxaparin Sodium 40 Mg/0.4 Ml Syringe SUBCUT 40 mg Q24H ALAN Administration Meropenem 1 gm/ Sodium 100 mls @ 200 mls/hr 02/14/23 22:00 02/14/23 22:34 Chloride IV 200 mls/hr Q12H ALAN Administration Lorazepam 0.5 mg 02/15/23 09:00 02/14/23 23:10 Lorazepam 0.5 Mg Tablet PO 0.5 mg BID ALAN Administration Pt Own ( 100 mg 02/14/23 22:30 02/14/23 23:10 Acalabrutinib PO 100 mg Maleate [Calquence ( BID ALAN Administration Acalabrutinib Mal)] 100 Mg Tab Discontinued Medications Generic Name Dose Route Start Last Admin Trade Name Freq PRN Reason Stop Dose Admin Albuterol Sulfate 2.5 mg/ 0 mg 02/14/23 19:16 02/14/23 19:22 Albuterol/Ipratropium 3 ml INHALE 02/14/23 19:17 1 dose ONCE ONE Administration Furosemide 40 mg 02/14/23 19:07 02/14/23 19:43 Furosemide 40 Mg/4 Ml Vial IVPUSH 02/14/23 19:08 40 mg ONCE ONE Administration Protocol Insulin Glargine 10 unit 02/14/23 22:21 02/14/23 23:16 Insulin Glargine,Hum.Rec.Anlog 100 Unit/Ml 10 Ml Vial SUBCUT 02/14/23 22:22 10 unit ONCE ONE Administration Medical Decision Making Medical Decision Making [facility] Narrative: Patient with COPD with increased shortness of breath has elevated leukocyte count with history of CLL press on 4 L of oxygen feeling much better workup showed elevated BNP chest x-ray showed increased congestion suggestive of exacerbation of CHF along with baseline chronic lung condition also noticed that patient had urinary tract infection with ESBL Klebsiella during last admission urine culture was done on 02/10/2023 but never been treated with antibiotics could be the cause of increased confusion and weakness along with shortness of breath will start patient on meropenem admit patient for ESBL UTI COPD and CHF exacerbation patient clinically not septic lactic acid level was 1.3 Differential Diagnosis Differential Diagnoses: The differential diagnosis associated with the presentation includes CHF/COPD/sepsis/UTI/pneumonia/ Admission/Observation Consideration of admission/observation: Escalation of care including admission/observation considered Consult Healthcare Provider Management of the patient was discussed with: Hospitalist Lab Data MDM Lab Attestation statement: I reviewed the patient's lab results. 02/14/23 20:01 02/14/23 20:01 Labs: Lab Results 02/14/23 02/14/23 02/14/23 Range/Units 19:39 20:01 20:08 WBC 24.4 H (4.8-10.8) X10*3/uL RBC 2.85 L (4.20-5.50) X10*6/uL Hgb 7.2 L (12.0-16.0) g/dl Hct 25.3 L (37.0-47.0) % MCV 88.8 (80.0-98.0) fL MCH 25.3 L (27.0-33.0) pg MCHC 28.5 L (31.0-35.0) g/dl RDW 15.1 (11.0-16.0) % Plt Count 199 (160-400) X10*3/uL MPV 12.2 (9.4-12.3) fL Immature Gran % (Auto) 1.7 H (0.0-0.4) % Neut % (Auto) 87.2 H (45-73) % Lymph % (Auto) 3.4 L (20-40) % Real % (Auto) 7.0 (2-11) % Eos % (Auto) 0.2 (0-4) % Baso % (Auto) 0.5 (0-2) % Lymph # (Auto) 0.8 L (1.2-4.9) X10*3/uL Real # (Auto) 1.7 H (0.1-1.2) X10*3/uL Eos # (Auto) 0.1 (0.0-0.4) X10*3/uL Baso # (Auto) 0.1 (0.0-0.2) X10*3/uL Abs Immat Gran (auto) 0.41 H (0.00-0.03) X10*3/uL Absolute Neuts (auto) 21.2 H (2.0-8.3) x10*3/uL Absolute Nucleated RBC 0.000 (0.0-0.012) X10*3/uL Nucleated RBC % (auto) 0.0 (0.0-0.2) /100WBC Smear Tech's Comments VERIFIED VBG pH 7.39 (7.32-7.43) VBG pCO2 57 mmHg VBG pO2 90 mmHg VBG HCO3 35 H (22-26) mmol/L VBG O2 Saturation 99.0 % VBG Base Excess 9.6 mmol/L Sodium 141 (135-145) mmol/L Potassium 4.2 (3.3-5.1) mmol/L Chloride 103 (96-108) mmol/L Carbon Dioxide 28 (22-29) mmol/L Anion Gap 14 (12-20) BUN 35 H (9-16) mg/dL Creatinine 1.67 H (0.5-1.4) mg/dL Estim Creat Clear Calc 38.2 Estimated GFR 30 Random Glucose 224 H (60-115) mg/dL Calcium 8.1 L D (8.4-10.2) mg/dL Magnesium 2.1 (1.6-2.6) mg/dL Total Bilirubin 0.2 (0.0-1.0) mg/dL AST 10 (5-31) U/L ALT 5 (0-31) U/L Alkaline Phosphatase 57 (39-117) U/L Troponin I High Sens 11.4 (<3.5-17.0) ng/L B-Natriuretic Peptide 1667 H (<100) pg/mL Total Protein 5.4 L (6.5-8.0) g/dL Albumin 2.7 L (3.5-5.0) g/dL Influenza Type A (PCR) NEGATIVE (Negative) Influenza Type B (PCR) NEGATIVE (Negative) RSV RNA Qual (PCR) NEGATIVE (Negative) SARS-CoV-2 RNA (RT-PCR) NEGATIVE (Negative) Independent Interpretation I performed an independent interpretation of an: EKG and Plain X-Ray Interpretation: Normal sinus rhythm heart rate 75 beats per minute nonspecific ST-T changes no acute ischemia Radiology Impression Discussion of test interpretation with radiology: I have reviewed the radiologist's reading. Critical Care Time Critical Care Time Critical Care Time: Yes Total Critical Care Time: 55 Attestation: The patient was critically ill with a high probability of imminent or life threatening deterioration. I spent greater than 60 minutes of discontinuous time evaluating the patient,delivering critical care at the bedside, discussing and evaluating pertinent data with consultants. Critical care time does not include time spent performing separately billable procedures or teaching. Total time spent performing critical care was 55 minutes. Discharge Plan Discharge Clinical Impression: Acute on chronic heart failure with preserved ejection fraction, CLL (chronic lymphocytic leukemia), COPD exacerbation, Urinary tract infection due to ESBL Klebsiella Patient Disposition: Admitted As Inpatient
[2023-02-14 19:05] VITALS: BP 110/41; PULSE 75; RESP 26; TEMP 37.6; O2SAT 99; BMI 45.8
[2023-02-14 19:22] VITALS: PULSE 76; RESP 22; O2SAT 97
[2023-02-14] MEDS: Albuterol Sulfate 2.5 MG, Albuterol/Iprat 2.5/0.5MG 3 ML 3 ML INHALE (19:22)
[2023-02-14] MEDS: Furosemide 40 MG/4 ML VIAL IVPUSH (19:43)
[2023-02-14 20:13] LABS: VBG Base Excess 9.6 mmol/L; VBG HCO3 35 mmol/L (22-26); VBG pCO2 57 mmHg; VBG pH 7.39 (7.32-7.43); VBG pO2 90 mmHg
[2023-02-14 20:14] LABS: Venous Blood Gas Refer to POC result
[2023-02-14 20:24] LABS: Influenza A PCR NEGATIVE (Negative); Influenza B PCR NEGATIVE (Negative); Resp Syncy Virus RNA Qual PCR NEGATIVE (Negative); SARS COV2 PCR INHOUSE NEGATIVE (Negative)
[2023-02-14 20:28] LABS: Alanine Aminotransferase 5 U/L (0-31); Albumin Level 2.7 g/dL (3.5-5.0); Alkaline Phosphatase 57 U/L (39-117); Anion Gap 14 (12-20); Aspartate Amino Transferase 10 U/L (5-31); Bilirubin Total 0.2 mg/dL (0.0-1.0); Blood Urea Nitrogen 35 mg/dL (9-16); Calcium 8.1 mg/dL (8.4-10.2); Carbon Dioxide 28 mmol/L (22-29); Chloride 103 mmol/L (96-108); Creatinine Clr Calc Pharmacy 38.2; Estimated Glomerular Filt Rate 30; Glucose Random 224 mg/dL (60-115); Magnesium 2.1 mg/dL (1.6-2.6); Potassium 4.2 mmol/L (3.3-5.1); Sodium 141 mmol/L (135-145); Total Protein 5.4 g/dL (6.5-8.0)
[2023-02-14 20:33] LABS: Basophils Absolute Auto 0.1 X10*3/uL (0.0-0.2); Basophils Percent Auto 0.5 % (0-2); Eosinophils Absolute Auto 0.1 X10*3/uL (0.0-0.4); Eosinophils Percent Auto 0.2 % (0-4); Hematocrit 25.3 % (37.0-47.0); Hemoglobin 7.2 g/dl (12.0-16.0); Imm Gran Abs Auto 0.41 X10*3/uL (0.00-0.03); Imm Gran Pct Auto 1.7 % (0.0-0.4); Lymphocytes Absolute Auto 0.8 X10*3/uL (1.2-4.9); Lymphocytes Percent Auto 3.4 % (20-40); MANUAL DIFF FLAG SCAN; Mean Corpuscular HGB Conc 28.5 g/dl (31.0-35.0); Mean Corpuscular Hemoglobin 25.3 pg (27.0-33.0); Mean Corpuscular Volume 88.8 fL (80.0-98.0); Mean Platelet Volume 12.2 fL (9.4-12.3); Monocytes Absolute Auto 1.7 X10*3/uL (0.1-1.2); Neutrophils Absolute Auto 21.2 x10*3/uL (2.0-8.3); Neutrophils Percent Auto 87.2 % (45-73); Platelet Count 199 X10*3/uL (160-400); Red Blood Count 2.85 X10*6/uL (4.20-5.50); Red Cell Distribution Width 15.1 % (11.0-16.0); SCAN SMEAR FLAG 1; White Blood Count 24.4 X10*3/uL (4.8-10.8)
[2023-02-14 20:41] LABS: Troponin-I High Sensitivity 11.4 ng/L (<3.5-17.0)
[2023-02-14 20:45] LABS: B Type Natriuretic Peptide 1667 pg/mL (<100)
[2023-02-14 21:10] LABS: SLIDE REVIEW VERIFIED
[2023-02-14 21:13] VITALS: BP 119/46; PULSE 76; RESP 30; O2SAT 96
--- NOTE | 2023-02-14 21:34 | P.HPHOSP_ITS ---
History of Present Illness Date of Service: 02/14/23 Chief Complaint: Dyspnea This is a 72-year-old female with pertinent history of congestive heart failure with preserved ejection fraction, chronic kidney disease, CLL, chronic hypoxemic respiratory failure due to COPD, obesity, obstructive sleep apnea, essential hypertension, mood disorder, hypothyroidism, insulin-dependent diabetes mellitus who presents to the emergency department for evaluation of dyspnea. Patient states it started on the day prior to presentation. She was found to be hypoxemic at outside facility on her home O2. Does endorse orthopnea and leg swelling. No fever, chills, chest discomfort, palpitations, abdominal pain, changes in urinary or bowel habits. Of note, patient was recently admitted with acute decompensation of congestive heart failure and discharged on 02/12. In the emergency department, patient was placed on supplemental oxygen and initiated on IV diuresis. Chest x-ray with pulmonary vascular congestion, pulmonary edema and BNP found to be elevated Review of Systems 2 Constitutional: Constitutional: Reports no additional constitutional complaints Cardiovascular: Cardiovascular: Reports dyspnea on exertion and Reports orthopnea Respiratory: Respiratory: Reports dyspnea on exertion Gastrointestinal: Gastrointestinal: Reports no additional gastrointestinal complaints Genitourinary: Genitourinary: Reports no additional female genitourinary complaints Neurologic: Reports system reviewed and no additional complaints, except as documented [facility] Medical History Anemia Hypoventilation associated with obesity COVID Congestive heart failure CKD (chronic kidney disease) stage 3, GFR 30-59 ml/min Acute respiratory failure with hypoxia Rash Heart block AV second degree Morbid obesity Acute UTI Acute kidney injury superimposed on CKD Bradycardia Pleural effusion Acute respiratory failure Pneumonia due to COVID-19 virus Chronic lymphocytic leukemia (CLL), B-cell Dyspnea Congestive heart failure COVID-19 Hypoxia Influenza A CLL (chronic lymphocytic leukemia) Suspected deep tissue injury Klebsiella pneumonia Infection with ESBL Klebsiella oxytoca Lymphadenopathy, mediastinal Pleural effusion Congestive heart failure Essential hypertension COVID Lower extremity edema Migraine HTN (hypertension) Pseudotumor cerebri PVD (peripheral vascular disease) Obesity CKD (chronic kidney disease) Diabetes mellitus with insulin therapy Hypothyroidism HLD (hyperlipidemia) Family History Mother Heart attack, Onset Age: 92 Father Heart attack, Onset Age: 66 Other Diabetes Surgical History S/P appendectomy H/O cataract extraction H/O hysterectomy for benign disease Hx of cholecystectomy Social History Household Members: Other Household Members Other:: Assisted living facility Housing: Assisted Living Facility Alcohol intake: former Patient Tobacco Use Status: Former Tobacco user Second Hand Smoke Exposure: No Advance Directives: No Advance Directives Information Provided: No Advance Directives Date on File: 09/26/20 service: No Current occupational status: disabled Meds Allergies Allergy/AdvReac Type Severity Reaction Status Date / Time oxycodone [From Percocet] Allergy Intermediate Rash Verified 02/14/23 19:05 lisinopril Allergy Unknown Unknown Verified 02/14/23 19:05 metoprolol AdvReac Severe bradycardia Verified 02/14/23 19:05 Active Medications: Current Medications Meropenem 1 gm/ Sodium (Chloride) 100 mls @ 200 mls/hr IV ONCE ONE Stop: 02/14/23 21:50 Home Medications Medication Instructions Recorded Confirmed Last Taken Type chlordiazepoxide HCl 10 mg capsule 10 mg PO BEDTIME 10/08/21 02/14/23 Unknown History citalopram 20 mg tablet 20 mg PO DAILY 10/08/21 02/14/23 Unknown History insulin lispro protamine-lispro 0 unit subcut QIDACHS 10/08/21 02/14/23 Unknown History 100 unit/mL (75-25) subcutaneous pen levothyroxine 175 mcg tablet 175 mcg PO DAILY@0600 10/08/21 02/14/23 Unknown History simvastatin 20 mg tablet 20 mg PO BEDTIME 10/08/21 02/14/23 Unknown History sitagliptin phosphate 100 mg 100 mg PO DAILY 10/08/21 02/14/23 Unknown History tablet (Januvia) latanoprost 0.005 % eye drops 1 drp ophthalmic (eye) BEDTIME 11/20/21 02/14/23 Unknown History albuterol sulfate 0.63 mg/3 mL 0.63 mg inhalation Q2H PRN 02/16/22 02/14/23 Unknown History solution for nebulization Shortness Of Breath Or Wheezing brinzolamide 1 %-brimonidine 0.2 % 1 drp ophthalmic-Right BID 02/16/22 02/14/23 Unknown History eye drops,suspension (Simbrinza) mfuxgyrayy-qujuhzskbinen-adxlexvl 1 tab PO Q6H PRN Headache 02/16/22 02/14/23 Unknown History 50 mg-325 mg-40 mg tablet coenzyme Q10 100 mg capsule 150 mg PO DAILY 02/16/22 02/14/23 Unknown History (CoQ-10) insulin glargine 100 unit/mL (3 16 unit subcut BID 02/16/22 02/14/23 Unknown History mL) subcutaneous pen (Lantus Solostar U-100 Insulin) melatonin 5 mg tablet 5 mg PO BEDTIME 02/16/22 02/14/23 Unknown History prednisolone acetate 1 % eye 1 drp ophthalmic-Right DAILY 02/16/22 02/14/23 Unknown History drops,suspension sennosides 8.6 mg tablet (senna) 17.2 mg PO DAILY PRN Constipation 02/16/22 02/14/23 Unknown History timolol maleate 0.5 % eye drops 1 drp ophthalmic-Right BID 02/16/22 02/14/23 Unknown History carboxymethylcellulose sodium 1 % 1 drp ophthalmic (eye) BID 03/15/22 02/14/23 Unknown History eye drops (Artificial Tears (carboxymethylcellulose)) budesonide-formoterol HFA 160 2 puff inhalation BID 04/27/22 02/14/23 Unknown History mcg-4.5 mcg/actuation aerosol inhaler (Symbicort) umeclidinium 62.5 mcg/actuation 1 inh inhalation DAILY 04/27/22 02/14/23 Unknown History blister powder for inhalation (Incruse Ellipta) acetaminophen 325 mg tablet 650 mg PO Q4H PRN Pain (Scale 06/08/22 02/14/23 Unknown History (Tylenol) Score 4-6) amlodipine 10 mg tablet 10 mg PO DAILY high blood pressure 06/08/22 02/14/23 Unknown History guaifenesin 600 mg tablet, 600 mg PO BID cough 06/08/22 02/14/23 Unknown History extended release 12 hr sodium phosphates 19 gram-7 118 ml CO DAILY PRN Constipation 06/08/22 02/14/23 Unknown History gram/118 mL enema (Fleet Enema) levalbuterol HCl 1.25 mg/3 mL 1.25 mg inhalation QID 07/30/22 02/14/23 Unknown History solution for nebulization biotin 5 mg tablet 5 mg PO DAILY 08/11/22 02/14/23 Unknown History bisacodyl 10 mg rectal suppository 10 mg CO DAILY PRN Constipation 08/11/22 02/14/23 Unknown History hydroxychloroquine 200 mg tablet 200 mg PO BID 08/11/22 02/14/23 Unknown History hydroxyzine HCl 25 mg tablet 25 mg PO DAILY 08/11/22 02/14/23 Unknown History lorazepam 0.5 mg tablet 0.5 mg PO BID Anxiety 08/11/22 02/14/23 Unknown History magnesium 200 mg tablet 200 mg PO DAILY 08/11/22 02/14/23 Unknown History riboflavin (vitamin B2) 400 mg 400 mg PO DAILY 08/11/22 02/14/23 Unknown History tablet diphenhydramine-zinc acetate 2 1 appl topical BID 10/27/22 02/14/23 Unknown History %-0.1 % topical cream nystatin 100,000 unit/gram topical 1 appl topical BID 10/27/22 02/14/23 Unknown History powder prednisone 1 mg tablet 6 mg PO DAILY 10/27/22 02/14/23 Unknown History bumetanide 1 mg tablet 2 mg PO BID@0900,1400 12/31/22 02/14/23 Unknown History acalabrutinib maleate 100 mg 100 mg PO BID 02/08/23 02/14/23 Unknown History tablet (Calquence (acalabrutinib maleate)) loperamide 2 mg capsule 2 mg PO Q4H PRN Diarrhea 02/08/23 02/14/23 Unknown History magnesium hydroxide 400 mg/5 mL 30 ml PO DAILY PRN Constipation 02/08/23 02/14/23 Unknown History oral suspension (Milk of Magnesia) Lactobacillus acidophilus 1 tab PO DAILY 02/14/23 02/14/23 Unknown History (Acidophilus chewable tablet) Physical Exam 2 Vital Signs and Narrative: Vital Signs: Last Vital Signs Temp 99.6 F 02/14/23 19:05 Pulse 76 02/14/23 21:13 Resp 30 H 02/14/23 21:13 BP 119/46 L 02/14/23 21:13 Pulse Ox 96 02/14/23 21:13 O2 Del Method Aerosol Mask, Oxy mask 02/14/23 21:13 O2 Flow Rate 4 02/14/23 21:13 Oxygen Flow Rate 12 02/14/23 19:05 BMI result Body Mass Index 45.8 Elderly female lying in bed in mild distress on supplemental oxygen Neck supple Regular rate and rhythm, S1-S2 heard Bilateral crackles appreciated Abdomen soft nontender, no guarding, no rigidity Patient is awake, alert and oriented to self, place, time and person ; no focal motor deficit Psych: Normal mood Bilateral pedal edema Results Labs 02/14/23 20:01 02/14/23 20:01 Labs: Laboratory Results - last 24 hr 02/14/23 02/14/23 02/14/23 19:39 20:01 20:08 MCV 88.8 MCH 25.3 L MCHC 28.5 L RDW 15.1 Plt Count 199 MPV 12.2 Immature Gran % (Auto) 1.7 H Neut % (Auto) 87.2 H Lymph % (Auto) 3.4 L Vance % (Auto) 7.0 Eos % (Auto) 0.2 Baso % (Auto) 0.5 Lymph # (Auto) 0.8 L Vance # (Auto) 1.7 H Eos # (Auto) 0.1 Baso # (Auto) 0.1 Abs Immat Gran (auto) 0.41 H Absolute Neuts (auto) 21.2 H Absolute Nucleated RBC 0.000 Nucleated RBC % (auto) 0.0 Smear Tech's Comments VERIFIED VBG pH 7.39 VBG pCO2 57 VBG pO2 90 VBG HCO3 35 H VBG O2 Saturation 99.0 VBG Base Excess 9.6 Anion Gap 14 Estim Creat Clear Calc 38.2 Estimated GFR 30 Random Glucose 224 H Calcium 8.1 L D Magnesium 2.1 Total Bilirubin 0.2 AST 10 ALT 5 Alkaline Phosphatase 57 B-Natriuretic Peptide 1667 H Total Protein 5.4 L Albumin 2.7 L Influenza Type A (PCR) NEGATIVE Influenza Type B (PCR) NEGATIVE RSV RNA Qual (PCR) NEGATIVE SARS-CoV-2 RNA (RT-PCR) NEGATIVE Imaging Radiologist's Impressions: Impressions Chest X-Ray 02/14/23 19:20 IMPRESSION: Although hypoexpanded, there is increased central vascular prominence and layering bilateral pleural effusions with associated basilar consolidation/atelectasis. Overall the appearance is more suggestive of worsening pulmonary edema when compared to the prior study. Assessment and Plan (1) Hypoxic: Status: Acute (2) Congestive heart failure: Qualifiers: Heart failure chronicity: acute Status: Acute Plan This is a 72-year-old female with pertinent history of congestive heart failure with preserved ejection fraction, chronic kidney disease, CLL, chronic hypoxemic respiratory failure due to COPD, obesity, obstructive sleep apnea, essential hypertension, mood disorder, hypothyroidism, insulin-dependent diabetes mellitus who presents to the emergency department for evaluation of dyspnea. #. Acute on chronic hypoxemic respiratory failure due to acute on chronic congestive heart failure with preserved ejection fraction: Will admit patient and initiate IV diuresis. Strict I's and O's. Low-salt diet. #. Leukocytosis: Previous urine culture collected on 02/10 with ESBL Klebsiella, likely ?acute UTI. Initiating IV meropenem. Infectious Disease consulted from the ER. #. Chronic kidney disease: Creatinine at baseline. Monitor with diuresis. Avoid nephrotoxins #. Essential hypertension: Continue home antihypertensives #. COPD: Continue home inhalers #. Morbid obesity: Recommend low-calorie diet. #. Hypothyroidism: On Synthroid #. CLL: Continue chronic prednisone and calquence #. Insulin-dependent diabetes mellitus with hyperglycemia: Basal plus insulin regimen #. Mood disorder: Continue home mood stabilizers #. Mixed hyperlipidemia: On statin DVT prophylaxis: Lovenox Admit as inpatient and will require two night minimum hospital stay for supplemental oxygen and IV diuresis (as above), which is not possible in a lesser acute setting. Quality Stroke Does the patient have a stroke diagnosis?: No VTE Prior VTE?: No VTE Risk Level:: Medical - moderate - high VTE Device Contraindication: Treatment Not Indicated VTE Drug Contraindication: N/A - Med Ordered
[2023-02-14 22:17] LABS: Glucose, Whole Blood 216 mg/dL (60-115)
[2023-02-14 22:29] LABS: Lactic Acid 1.3 mmol/L (0.5-2.0)
[2023-02-14] MEDS: Enoxaparin Sodium 40 MG/0.4 ML SYRINGE SUBCUT (22:34)
--- NOTE | 2023-02-14 22:45 | PHA.MEDREC ---
Pharmacy Consult ? Medication Reconciliation Pharmacy has completed the medication reconciliation. Received list from caleb kimbrough. Patient family brought in calequence, which will be stored in the pharmacy until patient has a room. Once patient has a room it will be sent to the floor. Sondra Hart, FreddieD
[2023-02-14 22:48] VITALS: BP 112/34; PULSE 78; RESP 32; O2SAT 93
[2023-02-14] MEDS: LORazepam 0.5 MG TABLET PO (23:10)
[2023-02-14] MEDS: Insulin Glargine,Hum.rec.anlog 100 UNIT/ML 10 ML VIAL 10 UNIT SUBCUT (23:16)
[2023-02-15] VITALS (20 sets, daily range): BP systolic 91–122; BP diastolic 30–87; PULSE 75–85; RESP 18–30; TEMP 36.4–36.5; O2SAT 92–100
--- NOTE | 2023-02-15 02:55 | HO.SKINPHOTO ---
Location:Buttocks/upper thigh Category:pressure Stage:stage I/maceration Length: Width: Depth: cm Location: Category: Stage: Length: Width: Depth: cm Location: Category: Stage: Length: Width: Depth: cm Location: Category: Stage: Length: Width: Depth: cm Location: Category: Stage: Length: Width: Depth: cm Location: Category: Stage: Length: Width: Depth: cm
[2023-02-15] MEDS: 0.9 % Sodium Chloride Flush 3 ML SYRINGE IVFLUSH ×3 (05:59→17:09)
[2023-02-15 06:11] LABS: Basophils Absolute Auto 0.1 X10*3/uL (0.0-0.2); Basophils Percent Auto 0.4 % (0-2); Eosinophils Absolute Auto 0.2 X10*3/uL (0.0-0.4); Eosinophils Percent Auto 1.1 % (0-4); Hematocrit 25.4 % (37.0-47.0); Hemoglobin 7.3 g/dl (12.0-16.0); Imm Gran Abs Auto 0.19 X10*3/uL (0.00-0.03); Imm Gran Pct Auto 0.9 % (0.0-0.4); Lymphocytes Percent Auto 4.4 % (20-40); MANUAL DIFF FLAG SCAN; Mean Corpuscular HGB Conc 28.7 g/dl (31.0-35.0); Mean Corpuscular Hemoglobin 24.9 pg (27.0-33.0); Mean Corpuscular Volume 86.7 fL (80.0-98.0); Mean Platelet Volume 12.6 fL (9.4-12.3); Monocytes Absolute Auto 1.6 X10*3/uL (0.1-1.2); Monocytes Percent Auto 7.3 % (2-11); NRBC Pct Auto 0.1 /100WBC (0.0-0.2); Neutrophils Absolute Auto 18.7 x10*3/uL (2.0-8.3); Neutrophils Percent Auto 85.9 % (45-73); Platelet Count 194 X10*3/uL (160-400); Red Blood Count 2.93 X10*6/uL (4.20-5.50); Red Cell Distribution Width 15.3 % (11.0-16.0); SCAN SMEAR FLAG 1; White Blood Count 21.7 X10*3/uL (4.8-10.8)
[2023-02-15] MEDS: Albuterol/Iprat 2.5/0.5MG 3 ML AMPUL.NEB INHALE (06:11)
[2023-02-15 06:22] LABS: Anion Gap 15 (12-20); Blood Urea Nitrogen 37 mg/dL (9-16); Calcium 8.4 mg/dL (8.4-10.2); Carbon Dioxide 28 mmol/L (22-29); Chloride 99 mmol/L (96-108); Estimated Glomerular Filt Rate 27; Glucose Random 215 mg/dL (60-115); Potassium 4.3 mmol/L (3.3-5.1); Sodium 138 mmol/L (135-145)
[2023-02-15 06:31] LABS: SLIDE REVIEW VERIFIED
[2023-02-15 06:41] LABS: Appearance Urine Turbid; Color Urine Yellow; Glucose Urine UA Negative (Negative); Leukocyte Esterase Urine Large (3+) (Negative); Nitrite Urine Negative (Negative); Specific Gravity - Urine 1.015 (1.005-1.025); UMIC TRIGGER UACC YES; Urine Blood Moderate (2+) (Negative); Urine Ketones Negative (Negative); Urine Protein 300 (3+) mg/dL (Neg-Trace)
[2023-02-15 06:52] LABS: Bacteria Urine 4+ (None Seen); RBC Urine >20 /HPF (0-2); Squamous Epithelial Cell Urine >20 /HPF (0-2); UACC Culture Trigger YES; WBC Urine >50 /HPF (0-5)
[2023-02-15 07:13] LABS: Glucose, Whole Blood 174 mg/dL (60-115)
[2023-02-15] MEDS: Insulin Lispro 100 UNIT/ML 3 ML VIAL SUBCUT ×3 (07:20→21:44)
[2023-02-15] MEDS: Levothyroxine Sodium 175 MCG TABLET PO (07:20)
[2023-02-15] MEDS: levalbuterol HCL 1.25 MG/3 ML VIAL.NEB INHALE ×3 (07:25→19:20)
--- NOTE | 2023-02-15 09:11 | PC.NURSE ---
report from prev andrew elkins. pt resting, no distress on oxymask.
--- NOTE | 2023-02-15 09:24 | PC.NURSE ---
md grove notified holding amlodipine- . also she is slightly tachypneic 28-32. she is talking and denies SOB at rest in bed. oxymask 5l 96%. denies dizziness/cp/sob/nausea
[2023-02-15] MEDS: Potassium Chloride ER 20 MEQ TAB.ER.PRT 40 MEQ PO (09:32)
[2023-02-15] MEDS: hydrOXYzine HCL 25 MG TABLET PO (09:32)
[2023-02-15] MEDS: Hydroxychloroquine Sulfate 200 MG TABLET PO ×2 (09:33→21:42)
[2023-02-15] MEDS: guaiFENesin LA 600 MG TAB.ER.12H PO ×2 (09:33→21:43)
[2023-02-15] MEDS: Magnesium Oxide 400 MG TABLET 200 MG PO (09:33)
[2023-02-15] MEDS: Insulin Glargine,Hum.rec.anlog 100 UNIT/ML 10 ML VIAL 10 UNIT SUBCUT ×2 (09:36→21:44)
--- NOTE | 2023-02-15 09:40 | PC.NURSE ---
called pharmacy for the rest of meds not here
[2023-02-15] MEDS: Escitalopram Oxalate 10 MG TABLET PO (09:50)
[2023-02-15] MEDS: Bumetanide 1 MG/4 ML VIAL 2 MG IVPUSH (10:12)
[2023-02-15] MEDS: SITagliptin Phosphate 100 MG TABLET PO (10:13)
[2023-02-15] MEDS: Brimonidine Tartrate 0.2% Oph 5 ML BOTTLE 1 DROP EYE-RIGHT ×2 (10:13→21:49)
[2023-02-15] MEDS: prednisoLONE Acetate 1 % Oph Susp 5 ML DRPBTL 1 DROP EYE-RIGHT (10:13)
[2023-02-15] MEDS: Artificial Tears 15 ML DROPS 1 DROP EYE-BOTH ×2 (10:13→21:48)
[2023-02-15] MEDS: timoloL maleate 0.5 % Oph Sol 5 ML DRBTL 1 DROP EYE-RIGHT ×2 (10:14→21:54)
[2023-02-15] MEDS: Dorzolamide HCl 2 % Ophth Sol 10 ML DRPBTL 1 DROP EYE-RIGHT ×2 (10:14→21:51)
--- NOTE | 2023-02-15 10:30 | PC.NURSE ---
med req'd prednisone po as is not in either pyxis still
[2023-02-15] MEDS: predniSONE 1 MG TABLET 6 MG PO (10:45)
--- NOTE | 2023-02-15 11:30 | HO.PM.IMPN ---
Subjective Subjective Date of Service: 02/15/23 Interval History: dyspneic though improving from overnight c/o orthopnea Review of Systems Review of Systems: Yes all other systems are reviewed and are negative Physical Exam Vital Signs: Vital Signs: Last Vital Signs Temp 97.6 F 02/15/23 09:11 Pulse 85 02/15/23 10:05 Resp 29 H 02/15/23 09:11 BP 122/50 L 02/15/23 10:20 Pulse Ox 96 02/15/23 10:05 O2 Del Method Oxymask 02/15/23 10:05 O2 Flow Rate 5 02/15/23 10:05 Oxygen Flow Rate 4 02/15/23 02:59 BMI result Body Mass Index 45.8 Gen: mild resp distress HEENT: sclera anicteric, moist mucus membranes Neck: supple Lungs: diminished bilaterally Heart: regular rate and rhythm, no murmurs Abd: soft, non-tender, non-distended Ext: 1+ BLE edema Skin: warm/well-perfused Neuro: alert and oriented x3, no focal findings Psych: appropriate affect Objective Data Active Medications Acetaminophen (Acetaminophen 325 Mg Tablet) 650 mg PO Q6H PRN PRN Reason: Pain, Mild (Pain Scale 1-3) Acetaminophen/Butalbital/Caffeine (Butalb/Acetamin/Caff 50/325/40 Tablet) 1 tab PO Q6H PRN PRN Reason: Headache Albuterol/Ipratropium (Albuterol/Iprat 2.5/0.5mg 3 Ml Ampul.Neb) 3 ml INHALE Q4H PRN PRN Reason: Wheezing Last Admin: 02/15/23 06:11 Dose: 3 ml Documented By: KEITH Amlodipine Besylate (Amlodipine Besylate 10 Mg Tablet) 10 mg PO DAILY [facility]; Protocol Last Admin: 02/15/23 09:22 Dose: Not Given Documented By: JORDEN Non-Admin Reason: bp 99/37- md made awre Artificial Tears (Artificial Tears 15 Ml Drops) 1 drop EYE-BOTH BID [facility] Last Admin: 02/15/23 10:13 Dose: 1 drop Documented By: JORDEN Atorvastatin Calcium (Atorvastatin Calcium 10 Mg Tablet) 10 mg PO BEDTIME [facility] Bisacodyl (Bisacodyl 10 Mg Supp.Rect) 10 mg VT DAILY PRN PRN Reason: Constipation Brimonidine Tartrate (Brimonidine Tartrate 0.2% Oph 5 Ml Bottle) 1 drop EYE-RIGHT BID [facility] Last Admin: 02/15/23 10:13 Dose: 1 drop Documented By: JORDEN Bumetanide (Bumetanide 1 Mg/4 Ml Vial) 2 mg IVPUSH BID@0900,1700 [facility]; Protocol Last Admin: 02/15/23 10:12 Dose: 2 mg Documented By: JORDEN Chlordiazepoxide HCl (Chlordiazepoxide Hcl 5 Mg Capsule) 10 mg PO BEDTIME [facility] Dextrose (Dextrose 50 % 25 Gm/50 Ml Syringe) 25 gm IVPUSH Q15M PRN; Protocol PRN Reason: per Hypoglycemia Standing Ord. Dorzolamide HCl (Dorzolamide Hcl 2 % Ophth Mona 10 Ml Drpbtl) 1 drop EYE-RIGHT BID [facility] Last Admin: 02/15/23 10:14 Dose: 1 drop Documented By: JORDEN Enoxaparin Sodium (Enoxaparin Sodium 40 Mg/0.4 Ml Syringe) 40 mg SUBCUT Q24H [facility] Last Admin: 02/14/23 22:34 Dose: 40 mg Documented By: LAM Escitalopram Oxalate (Escitalopram Oxalate 10 Mg Tablet) 10 mg PO DAILY [facility] Last Admin: 02/15/23 09:50 Dose: 10 mg Documented By: JORDEN Fluticasone/Vilanterol (Fluticasone/Vilanterol 200/25 Blst.W.Dev) 1 puff INHALE RDAILY [facility] Last Admin: 02/15/23 07:27 Dose: Not Given Documented By: MAREK Non-Admin Reason: Med Not Available Glucose (Glucose Gel 15 Gm Gel..Gram.) 15 gm PO Q15M PRN; Protocol PRN Reason: per Hypoglycemia Standing Ord. Guaifenesin (Guaifenesin La 600 Mg Tab.Er.12h) 600 mg PO BID [facility] Last Admin: 02/15/23 09:33 Dose: 600 mg Documented By: JORDEN Hydroxychloroquine Sulfate (Hydroxychloroquine Sulfate 200 Mg Tablet) 200 mg PO BID [facility] Last Admin: 02/15/23 09:33 Dose: 200 mg Documented By: JORDEN Hydroxyzine HCl (Hydroxyzine Hcl 25 Mg Tablet) 25 mg PO DAILY [facility] Last Admin: 02/15/23 09:32 Dose: 25 mg Documented By: JORDEN Meropenem 1 gm/ Sodium (Chloride) 100 mls @ 200 mls/hr IV Q12H [facility] Last Infusion: 02/15/23 10:22 Dose: Infused Documented By: JORDEN Insulin Glargine (Insulin Glargine,Hum.Rec.Anlog 100 Unit/Ml 10 Ml Vial) 10 unit SUBCUT BID [facility] Last Admin: 02/15/23 09:36 Dose: 10 unit Documented By: JORDEN Insulin Human Lispro (Insulin Lispro 100 Unit/Ml 3 Ml Vial) 0 unit SUBCUT QIDACHS [facility]; Protocol Last Admin: 02/15/23 07:20 Dose: 2 unit Documented By: ZAYRA Latanoprost (Latanoprost 0.005 % Ophth Mona 2.5 Ml Drops) 1 drop EYE-BOTH BEDTIME [facility] Levalbuterol HCl (Levalbuterol Hcl 1.25 Mg/3 Ml Vial.Neb) 1.25 mg INHALE RQID [facility] Last Admin: 02/15/23 07:25 Dose: 1.25 mg Documented By: MAREK Levothyroxine Sodium (Levothyroxine Sodium 175 Mcg Tablet) 175 mcg PO DAILY@0600 [facility] Last Admin: 02/15/23 07:20 Dose: 175 mcg Documented By: ZAYRA Loperamide HCl (Loperamide Hcl 2 Mg Capsule) 2 mg PO Q4H PRN PRN Reason: Diarrhea Lorazepam (Lorazepam 0.5 Mg Tablet) 0.5 mg PO BID [facility] Last Admin: 02/14/23 23:10 Dose: 0.5 mg Documented By: LAM Magnesium Hydroxide (Milk Of Magnesia 30 Ml Oral.Susp) 30 ml PO DAILY PRN PRN Reason: Constipation Magnesium Oxide (Magnesium Oxide 400 Mg Tablet) 200 mg PO DAILY [facility] Last Admin: 02/15/23 09:33 Dose: 200 mg Documented By: JORDEN Melatonin (Melatonin 3 Mg Tablet) 6 mg PO BEDTIME PRN PRN Reason: Insomnia Melatonin (Melatonin 3 Mg Tablet) 6 mg PO BEDTIME [facility] Pt Own ( Acalabrutinib Maleate [Calquence ( Acalabrutinib Mal)] 100 Mg Tab 100 mg PO BID [facility] Last Admin: 02/15/23 09:47 Dose: 100 mg Documented By: JORDEN Nystatin (Nystatin Powder 15 Gm Bottle) 1 appl TOPICAL BID [facility]; Protocol Last Admin: 02/15/23 09:32 Dose: Not Given Documented By: JORDEN Non-Admin Reason: pt declined. asked twice Ondansetron HCl (Ondansetron Hcl 4 Mg/2 Ml Vial) 4 mg IVPUSH Q8H PRN PRN Reason: Nausea and Vomiting Potassium Chloride (Potassium Chloride Er 20 Meq Tab.Er.Prt) 40 meq PO DAILY [facility] Last Admin: 02/15/23 09:32 Dose: 40 meq Documented By: JORDEN Prednisolone Acetate (Prednisolone Acetate 1 % Oph Susp 5 Ml Drpbtl) 1 drop EYE-RIGHT DAILY [facility] Last Admin: 02/15/23 10:13 Dose: 1 drop Documented By: JORDEN Prednisone (Prednisone 1 Mg Tablet) 6 mg PO DAILY [facility] Last Admin: 02/15/23 10:45 Dose: 6 mg Documented By: JORDEN Senna (Sennosides 8.6 Mg Tablet) 17.2 mg PO DAILY PRN PRN Reason: Constipation Sitagliptin Phosphate (Sitagliptin Phosphate 100 Mg Tablet) 100 mg PO DAILY [facility] Last Admin: 02/15/23 10:13 Dose: 100 mg Documented By: JORDEN Sodium Biphosphate/Sodium Phosphate (Sodium Phosphate,[place]-Dibasic 133 Ml Enema) 118 ml VT DAILY PRN PRN Reason: Constipation Sodium Chloride (0.9 % Sodium Chloride Flush 3 Ml Syringe) 3 ml IVFLUSH QSHIFT [facility] Last Admin: 02/15/23 07:20 Dose: 3 ml Documented By: ZAYRA Timolol Maleate (Timolol Maleate 0.5 % Oph Mona 5 Ml Drbtl) 1 drop EYE-RIGHT BID [facility] Last Admin: 02/15/23 10:14 Dose: 1 drop Documented By: JORDEN Tiotropium [place] (Tiotropium [place] 2.5 Mcg Inhaler) 1 puff INHALE RDAILY [facility] Last Admin: 02/15/23 07:27 Dose: Not Given Documented By: MAREK Non-Admin Reason: Med Not Available Zinc Acetate/Diphenhydramine (Diphenhydramine Hcl 2 % Cream 28 Gm Tube) 1 appl TOPICAL BID [facility]; Protocol Last Admin: 02/15/23 10:14 Dose: Not Given Documented By: JORDEN Non-Admin Reason: declned asked twice Labs 02/15/23 04:42 02/15/23 04:42 Labs: Laboratory Results - last 24 hr 02/14/23 02/14/23 02/14/23 19:39 20:01 20:08 MCV 88.8 MCH 25.3 L MCHC 28.5 L RDW 15.1 Plt Count 199 MPV 12.2 Immature Gran % (Auto) 1.7 H Neut % (Auto) 87.2 H Lymph % (Auto) 3.4 L [place] % (Auto) 7.0 Eos % (Auto) 0.2 Baso % (Auto) 0.5 Lymph # (Auto) 0.8 L [place] # (Auto) 1.7 H Eos # (Auto) 0.1 Baso # (Auto) 0.1 Abs Immat Gran (auto) 0.41 H Absolute Neuts (auto) 21.2 H Absolute Nucleated RBC 0.000 Nucleated RBC % (auto) 0.0 Smear Tech's Comments VERIFIED VBG pH 7.39 VBG pCO2 57 VBG pO2 90 VBG HCO3 35 H VBG O2 Saturation 99.0 VBG Base Excess 9.6 Anion Gap 14 Estim Creat Clear Calc 38.2 Estimated GFR 30 POC Glucose Random Glucose 224 H Lactic Acid Calcium 8.1 L D Magnesium 2.1 Total Bilirubin 0.2 AST 10 ALT 5 Alkaline Phosphatase 57 B-Natriuretic Peptide 1667 H Total Protein 5.4 L Albumin 2.7 L Urine Color Urine Appearance Urine pH Ur Specific [place] Urine Protein Urine Glucose (UA) Urine Ketones Urine Blood Urine Nitrite Ur Leukocyte Esterase Urine RBC Urine WBC Ur Squamous Epith Cells Urine Bacteria Hyaline Casts Influenza Type A (PCR) NEGATIVE Influenza Type B (PCR) NEGATIVE RSV RNA Qual (PCR) NEGATIVE SARS-CoV-2 RNA (RT-PCR) NEGATIVE 02/14/23 02/14/23 02/15/23 22:00 22:05 04:42 MCV 86.7 MCH 24.9 L MCHC 28.7 L RDW 15.3 Plt Count 194 MPV 12.6 H Immature Gran % (Auto) 0.9 H Neut % (Auto) 85.9 H Lymph % (Auto) 4.4 L [place] % (Auto) 7.3 Eos % (Auto) 1.1 Baso % (Auto) 0.4 Lymph # (Auto) 1.0 L [place] # (Auto) 1.6 H Eos # (Auto) 0.2 Baso # (Auto) 0.1 Abs Immat Gran (auto) 0.19 H Absolute Neuts (auto) 18.7 H Absolute Nucleated RBC 0.020 H Nucleated RBC % (auto) 0.1 Smear Tech's Comments VERIFIED VBG pH VBG pCO2 VBG pO2 VBG HCO3 VBG O2 Saturation VBG Base Excess Anion Gap 15 Estim Creat Clear Calc 35.0 Estimated GFR 27 POC Glucose 216 H Random Glucose 215 H Lactic Acid 1.3 Calcium 8.4 Magnesium Total Bilirubin AST ALT Alkaline Phosphatase B-Natriuretic Peptide Total Protein Albumin Urine Color Urine Appearance Urine pH Ur Specific [place] Urine Protein Urine Glucose (UA) Urine Ketones Urine Blood Urine Nitrite Ur Leukocyte Esterase Urine RBC Urine WBC Ur Squamous Epith Cells Urine Bacteria Hyaline Casts Influenza Type A (PCR) Influenza Type B (PCR) RSV RNA Qual (PCR) SARS-CoV-2 RNA (RT-PCR) 02/15/23 02/15/23 06:01 07:09 MCV MCH MCHC RDW Plt Count MPV Immature Gran % (Auto) Neut % (Auto) Lymph % (Auto) [place] % (Auto) Eos % (Auto) Baso % (Auto) Lymph # (Auto) [place] # (Auto) Eos # (Auto) Baso # (Auto) Abs Immat Gran (auto) Absolute Neuts (auto) Absolute Nucleated RBC Nucleated RBC % (auto) Smear Tech's Comments VBG pH VBG pCO2 VBG pO2 VBG HCO3 VBG O2 Saturation VBG Base Excess Anion Gap Estim Creat Clear Calc Estimated GFR POC Glucose 174 H Random Glucose Lactic Acid Calcium Magnesium Total Bilirubin AST ALT Alkaline Phosphatase B-Natriuretic Peptide Total Protein Albumin Urine Color Yellow Urine Appearance Turbid Urine pH 7.0 Ur Specific [place] 1.015 Urine Protein 300 (3+) H Urine Glucose (UA) Negative Urine Ketones Negative Urine Blood Moderate (2+) H Urine Nitrite Negative Ur Leukocyte Esterase Large (3+) H Urine RBC >20 H Urine WBC >50 H Ur Squamous Epith Cells >20 Urine Bacteria 4+ Hyaline Casts 3-5 Influenza Type A (PCR) Influenza Type B (PCR) RSV RNA Qual (PCR) SARS-CoV-2 RNA (RT-PCR) Assessment and Plan (1) (HFpEF) heart failure with preserved ejection fraction: Status: Acute Assessment and Plan: d2 72yo F with HFpEF, CKD3, CLL, chronic hypoxic due to COPD, obesity, LATONYA, HTN, mood disorder, hypothyroidism, DM2 recent admission 02/08-02/12/23 for CHF exacerbation sent to [facility] for rehab, returned for another CHF exacerbation acute/chronic hypoxic resp failure due to acute-chronic HFpEF - IV diuresis with bumetanide, monitor I/O + lytes + BNP - BiPAP at night as recommended last admission UTI - meropenem d2, ID consult pending CKD3 - SCr at baseline, monitor with diuresis HTN - continue amlodipine [held this AM for soft BP] COPD - continue Breo, tiotropium, prn nebs HLD - statin mood disorder - continue Librium, lorazepam hypothyroidism - continue LT4 CLL - continue prednisone + acalabrutinib DM2 - basal-bolus insulin morbid obesity - diet/exercise counseling VTE ppx - LMWH dispo - eventual return to [facility] for STR In my clinical judgment, the patient requires continued inpatient hospitalization for the following reasons: IV diuresis, oxygen, BiPAP Total time managing care of this patient today: 35 minutes. Quality Stroke Does the patient have a stroke diagnosis?: No VTE Prior VTE?: No VTE Risk Level:: Medical - moderate - high VTE Device Contraindication: Treatment Not Indicated VTE Drug Contraindication: N/A - Med Ordered
[2023-02-15 11:31] LABS: Glucose, Whole Blood 167 mg/dL (60-115)
[2023-02-15 12:12] LABS: Glucose, Whole Blood 173 mg/dL (60-115)
--- NOTE | 2023-02-15 12:16 | PC.NURSE ---
rn at bedside- gave 2 bites diet pudding, 1/4 grahamn cracker, 2 sips diet gingerale. md broderick came to bedside as pt stopped responding sat 54% on oxymask 5L- suctioning- bagging as pt minimally responsive- dentures removed. pt had pudding/juice rn had just given in her mouth
--- NOTE | 2023-02-15 12:18 | PC.NURSE ---
pt responds to voice. md grove messaged to notify pt bp 90/36 repeat 98/31 sat 96+% on 10L oxymask placed by respiratory ther at bedside
[2023-02-15] MEDS: 0.9 % Sodium Chloride 500 ML IV (12:29)
--- NOTE | 2023-02-15 12:32 | PC.NURSE ---
md carrion aware sbp continues in 90s (MAPs in 40-50s). responds to voice. 100% on 8L oxymask
--- NOTE | 2023-02-15 12:37 | PC.NURSE ---
pt will remain npo- deferring rn swallow eval at this time and awaiting ERECTING CRANE OPERATOR eval
[2023-02-15] MEDS: Hydrocortisone Sod Succ/PF 100 MG VIAL 50 MG IVPUSH ×2 (12:51→22:11)
--- NOTE | 2023-02-15 13:00 | PC.NURSE ---
per md carrion pausing fluids- received 250 cc so far- md to order chest xray as minor wheezing
--- NOTE | 2023-02-15 14:22 | PC.NURSE ---
provider ordered to restart iv fluids as MAP remains 50s to low 60s w SBP 90s
[2023-02-15 15:15] LABS: Lactic Acid 0.6 mmol/L (0.5-2.0)
--- NOTE | 2023-02-15 15:51 | PC.NURSE ---
md carrion notified this shift since 0900 pt has voided 150cc in purewick. bladder scanned- 150cc. no suprapubic tenderness.
--- NOTE | 2023-02-15 15:58 | MHC.SL.SWA ---
Speech Pathologist Impression: Risk of Aspiration Due to: Medically Fragile Weak Cough Dysphasia Diet Status: Continue with GROUND/MECHANICAL/ALTERED (NDD2) with THIN LIQUIDS by cup sip (NO STRAW). Pills whole in puree with close monitor that patient is not pocketing or orally holding pills. Liquid Consistency and Strategies for Safe Swallow: Liquid Intake Recommendation: Thin Liquid Intake Strategies: Small Sips Solid Food Consistency: Dietary Recommendations: Grnd/Mech Altered (NDD2) Additional Modifications to Solid Foods: Patient required 1-1 feed. Assure that patient has swallowed and is not pocketing food, before presenting additional food, alternate liquids and solids. Oral Medication Intake: Whole with Puree Please contact the pharmacy regarding appropriate crushable or liquid drug formulations that are available whenever modified delivery is recommended. Compensatory Strategies and Precautions to be Taken for Safe Swallow: Sitting Upright (90 deg) Liquids from Straw Small Bites and Sips Alternate Liquids/Solids Rate of Ingestion Change Oral Check Supervision While Eating and Drinking for Safe Swallow: Total Supervision (1:1) Foods to Avoid: Mixed consistencies: Blend sauces or gravies into ground food well. Swallowing Recommended Treatments: Compens. Strategy Educat. Recommendation for Speech: Inpatient Speech Therapy Comment: Recommend resume diet of Ground/Mech Altered (NDD2) Solids and Thin Liquids. Medications, one at a time whole with Apple Sauce (Pt preference). Keep aspiration precautions during all PO. CONSTRUCTION REPRESENTATIVE will return for further advancement. Timeline to reassess: PRN Camp Maintenance Supervisor Clinican/Clinical Fellow: No Supervisory Statement: I have reviewed and agree with the student/clinical fellow's documentation: N/A Speech Language Pathologist: Julio Arrington M.A., [facility]-CONSTRUCTION REPRESENTATIVE
--- NOTE | 2023-02-15 16:01 | PC.NURSE ---
repositioned, boosted, pillows, barrier cream/valeriy care w tech at bedside. no dizziness/cp.
[2023-02-15 17:24] LABS: Glucose, Whole Blood 195 mg/dL (60-115)
[2023-02-15] MEDS: vancomycin/NS 2,000 MG/500 ML PLAST..BAG 250 MG IV (18:19)
--- NOTE | 2023-02-15 18:45 | PC.NURSE ---
spoke alessandro elizondo- rn upstairs giving report and will call back
--- NOTE | 2023-02-15 19:13 | PC.NURSE ---
MD states will be placing food order per RN TRANSITIONAL CARE and no longer NPO. MD Hannon made aware pt not void since 1300 still- MD order to bladder scan- attempting at this time. pt no longer going to bed assigned- abad ludwig aware- notified floor.
--- NOTE | 2023-02-15 19:50 | PC.NURSE ---
large urinary incont. cleaned by tech/rn w valeriy care/barrier cream to skin breakdown backside. repositioned w pillows. fresh sheets/gown/pad. declines red hospital socks/top sheet blanket.
--- NOTE | 2023-02-15 19:55 | PC.NURSE ---
calling report to next bed on 4th floor
--- NOTE | 2023-02-15 20:23 | PC.NURSE ---
no transport- rn and tech taking up
[2023-02-15 21:01] LABS: Glucose, Whole Blood 220 mg/dL (60-115)
[2023-02-15] MEDS: Melatonin 3 MG TABLET 6 MG PO (21:42)
[2023-02-15] MEDS: Atorvastatin Calcium 10 MG TABLET PO (21:43)
[2023-02-15] MEDS: Enoxaparin Sodium 40 MG/0.4 ML SYRINGE SUBCUT (21:43)
[2023-02-15] MEDS: diphenhydrAMINE HCl 2 % Cream 28 GM TUBE 1 APPL TOPICAL (21:49)
[2023-02-15] MEDS: Nystatin Powder 15 GM BOTTLE 1 APPL TOPICAL (21:51)
[2023-02-16] VITALS (12 sets, daily range): BP systolic 101–122; BP diastolic 50–60; PULSE 75–84; RESP 16–26; TEMP 36–36.2; O2SAT 90–98
[2023-02-16] MEDS: 0.9 % Sodium Chloride Flush 3 ML SYRINGE IVFLUSH ×4 (00:17→21:41)
[2023-02-16] MEDS: Levothyroxine Sodium 175 MCG TABLET PO (05:32)
[2023-02-16] MEDS: Hydrocortisone Sod Succ/PF 100 MG VIAL 50 MG IVPUSH ×3 (05:34→21:28)
[2023-02-16 07:16] LABS: Glucose, Whole Blood 177 mg/dL (60-115)
--- NOTE | 2023-02-16 08:25 | MHC.CM.PN ---
CM met with Patient at bedside and verbally addressed IMM with her, Patient appeared SOB and stated that she could not write now. Original IMM was left with Patient and a copy has been placed on the chart. Patient is from [facility] and returning there is the goal. CM has initiated and will follow for dc planning.
--- NOTE | 2023-02-16 09:02 | PC.RT ---
placed patient back om Bipap 18/8 with 2 liters due to increased wob and paradoxical respirations. Pt has Crackles tay and exp wheeze due to fluid. Will let Dr. Talbert and RN aware this am
[2023-02-16 09:09] LABS: Hemoglobin 7.1 g/dl (12.0-16.0); Mean Corpuscular HGB Conc 28.4 g/dl (31.0-35.0); Mean Corpuscular Hemoglobin 24.8 pg (27.0-33.0); Mean Corpuscular Volume 87.4 fL (80.0-98.0); Platelet Count 140 X10*3/uL (160-400); Red Blood Count 2.86 X10*6/uL (4.20-5.50); White Blood Count 18.5 X10*3/uL (4.8-10.8)
[2023-02-16] MEDS: Potassium Chloride ER 20 MEQ TAB.ER.PRT 40 MEQ PO (09:12)
[2023-02-16] MEDS: guaiFENesin LA 600 MG TAB.ER.12H PO (09:13)
[2023-02-16] MEDS: SITagliptin Phosphate 100 MG TABLET PO (09:13)
[2023-02-16] MEDS: Escitalopram Oxalate 10 MG TABLET PO (09:13)
[2023-02-16] MEDS: Magnesium Oxide 400 MG TABLET 200 MG PO (09:13)
[2023-02-16] MEDS: hydrOXYzine HCL 25 MG TABLET PO (09:14)
[2023-02-16] MEDS: Hydroxychloroquine Sulfate 200 MG TABLET PO (09:14)
[2023-02-16] MEDS: Insulin Glargine,Hum.rec.anlog 100 UNIT/ML 10 ML VIAL 10 UNIT SUBCUT ×2 (09:17→21:29)
[2023-02-16] MEDS: Nystatin Powder 15 GM BOTTLE 1 APPL TOPICAL ×2 (09:18→21:43)
[2023-02-16] MEDS: Artificial Tears 15 ML DROPS 1 DROP EYE-BOTH ×2 (09:24→21:42)
[2023-02-16] MEDS: Brimonidine Tartrate 0.2% Oph 5 ML BOTTLE 1 DROP EYE-RIGHT ×2 (09:24→21:41)
[2023-02-16] MEDS: timoloL maleate 0.5 % Oph Sol 5 ML DRBTL 1 DROP EYE-RIGHT ×2 (09:26→21:41)
[2023-02-16] MEDS: Dorzolamide HCl 2 % Ophth Sol 10 ML DRPBTL 1 DROP EYE-RIGHT ×2 (09:26→21:42)
[2023-02-16 09:27] LABS: Anion Gap 16 (12-20); Blood Urea Nitrogen 39 mg/dL (9-16); Calcium 8.4 mg/dL (8.4-10.2); Carbon Dioxide 25 mmol/L (22-29); Chloride 104 mmol/L (96-108); Creatinine Clr Calc Pharmacy 34.3; Estimated Glomerular Filt Rate 27; Glucose Random 194 mg/dL (60-115); Magnesium 2.3 mg/dL (1.6-2.6); Potassium 5.1 mmol/L (3.3-5.1); Sodium 140 mmol/L (135-145)
[2023-02-16] MEDS: prednisoLONE Acetate 1 % Oph Susp 5 ML DRPBTL 1 DROP EYE-RIGHT (09:27)
[2023-02-16] MEDS: diphenhydrAMINE HCl 2 % Cream 28 GM TUBE 1 APPL TOPICAL ×2 (09:28→21:41)
[2023-02-16 09:29] LABS: B Type Natriuretic Peptide 1203 pg/mL (<100)
[2023-02-16 09:57] LABS: ABG Base Excess 2.3 mmol/L; ABG HCO3 27 mmol/L (22-26); ABG pCO2 46 mmHg (32-45); ABG pH 7.37 (7.35-7.45); ABG pO2 50 mmHg (83-108)
[2023-02-16] MEDS: Bumetanide 1 MG/4 ML VIAL 2 MG IVPUSH ×2 (10:20→16:44)
[2023-02-16 10:55] LABS: Glucose, Whole Blood 193 mg/dL (60-115)
--- NOTE | 2023-02-16 11:16 | MHC.SLORD ---
Speech Language Pathology Order Status: RN reports O2 desaturation, recommended dysphagia tx temporarily held pending improvement in O2 stabilization. LIQUID HYDROGEN PLANT OPERATOR to re-attempt later in day.
--- NOTE | 2023-02-16 12:20 | HE.PHANOTE ---
RE: VANCO On 02/16/23, sCr came back as 1.86 and CrCl as 34.3. Patient is starting dose of 750mg q24h @1800, predicted AUC is 495 with trough of 16.4 under the obese model in Insight. Dosing is appropriate for patient's age and indication, random vanco is scheduled for 02/18/23 @1600.
--- NOTE | 2023-02-16 13:13 | HO.WOUND ---
Wound Consult: Initial 72yr old [place] [facility] 21:33 - See progress notes and H&P for detailed history. Sacrum, bilateral buttocks and posterior thighs / ischial area Etiology: MASD-IAD (Moisture Associated Skin Damage - Incontinence Associated Dermatitis) - Not pressure related injury Wound Bed: Red pink light purple blanchable tissue with scattered areas of partial thickness tissue loss Drainage / Odor: None noted Edges: ? irregular Vannessa wound: ? light purple - indicative of chronic moisture secondary to incontinence baseline No Induration, No Fluctuance, No Warmth Pain: Denies Goals of Treatment: ? Barrier cream to protect from friciton and moisture - off load pressure Recommendations: 1. Turn and Reposition every 2 hours and as needed for patient comfort consider use of wedges available in the storeroom. 2. Off Load all bony prominences with use of pillows, wedges and heel boots. 3. Monitor for incontinence and moisture control. Purewick in use. 4. Provide adequate and supplemental nutrition. 5. Order low air loss mattress. 6. Maintain blood glucose levels per Providers orders. 7. Sacrum, bilateral buttocks and posterior thighs - Off Load Pressure - Cleanse with PH balance spray, pat dry. ?Apply thin layer of Triad to area - only pat and dab no scrub and rub when soiling occurs. Reapply thin layer PRN after each episode of incontinence. Re-consult wound care Nurse for wound deterioration or wound changes.
[2023-02-16 14:41] LABS: ABG Refer to POC result
--- NOTE | 2023-02-16 16:16 | HO.PM.IMPN ---
Subjective Subjective Date of Service: 02/16/23 Interval History: On BiPAP all day. Minimal urine output. ABG 7.37/46/50/27. BCx growing Coag-neg joshua Feels not that great . Review of Systems Review of Systems: Yes all other systems are reviewed and are negative Physical Exam Vital Signs: Vital Signs: Last Vital Signs Temp 96.9 F 02/16/23 15:42 Pulse 78 02/16/23 15:42 Resp 22 H 02/16/23 15:42 BP 109/51 L 02/16/23 15:42 Pulse Ox 97 02/16/23 15:42 O2 Del Method BiPAP 02/16/23 15:42 O2 Flow Rate 4 02/16/23 07:35 Oxygen Flow Rate 4 02/15/23 02:59 BMI result Body Mass Index 45.8 Gen: mild resp distress, ill-appearing HEENT: sclera anicteric, moist mucus membranes Neck: supple Lungs: diminished Heart: regular rate and rhythm, no murmurs Abd: soft, non-tender, non-distended, obese Ext: 2+ edema to legs bilaterally Skin: warm/well-perfused Neuro: alert and oriented x3, no focal findings Psych: appropriate affect Objective Data Active Medications Acetaminophen (Acetaminophen 325 Mg Tablet) 650 mg PO Q6H PRN PRN Reason: Pain, Mild (Pain Scale 1-3) Acetaminophen/Butalbital/Caffeine (Butalb/Acetamin/Caff 50/325/40 Tablet) 1 tab PO Q6H PRN PRN Reason: Headache Albuterol/Ipratropium (Albuterol/Iprat 2.5/0.5mg 3 Ml Ampul.Neb) 3 ml INHALE Q4H PRN PRN Reason: Wheezing Last Admin: 02/15/23 06:11 Dose: 3 ml Documented By: KEITH Amlodipine Besylate (Amlodipine Besylate 10 Mg Tablet) 10 mg PO DAILY [facility]; Protocol Last Admin: 02/15/23 09:22 Dose: Not Given Documented By: JORDEN Non-Admin Reason: bp 99/37- md made awre Artificial Tears (Artificial Tears 15 Ml Drops) 1 drop EYE-BOTH BID [facility] Last Admin: 02/16/23 09:24 Dose: 1 drop Documented By: MARGI Atorvastatin Calcium (Atorvastatin Calcium 10 Mg Tablet) 10 mg PO BEDTIME [facility] Last Admin: 02/15/23 21:43 Dose: 10 mg Documented By: RENETTADEJesse Bisacodyl (Bisacodyl 10 Mg Supp.Rect) 10 mg GA DAILY PRN PRN Reason: Constipation Brimonidine Tartrate (Brimonidine Tartrate 0.2% Oph 5 Ml Bottle) 1 drop EYE-RIGHT BID [facility] Last Admin: 02/16/23 09:24 Dose: 1 drop Documented By: MARGI Chlordiazepoxide HCl (Chlordiazepoxide Hcl 5 Mg Capsule) 10 mg PO BEDTIME [facility] Dextrose (Dextrose 50 % 25 Gm/50 Ml Syringe) 25 gm IVPUSH Q15M PRN; Protocol PRN Reason: per Hypoglycemia Standing Ord. Dorzolamide HCl (Dorzolamide Hcl 2 % Ophth Mona 10 Ml Drpbtl) 1 drop EYE-RIGHT BID [facility] Last Admin: 02/16/23 09:26 Dose: 1 drop Documented By: MARGI Enoxaparin Sodium (Enoxaparin Sodium 40 Mg/0.4 Ml Syringe) 40 mg SUBCUT Q24H [facility] Last Admin: 02/15/23 21:43 Dose: 40 mg Documented By: LES Escitalopram Oxalate (Escitalopram Oxalate 10 Mg Tablet) 10 mg PO DAILY [facility] Last Admin: 02/16/23 09:13 Dose: 10 mg Documented By: MARGI Fluticasone/Vilanterol (Fluticasone/Vilanterol 200/25 Blst.W.Dev) 1 puff INHALE RDAILY [facility] Last Admin: 02/16/23 07:56 Dose: Not Given Documented By: MAREK Non-Admin Reason: pharmacy called Glucose (Glucose Gel 15 Gm Gel..Gram.) 15 gm PO Q15M PRN; Protocol PRN Reason: per Hypoglycemia Standing Ord. Guaifenesin (Guaifenesin La 600 Mg Tab.Er.12h) 600 mg PO BID [facility] Last Admin: 02/16/23 09:13 Dose: 600 mg Documented By: MARGI Hydrocortisone Sodium Succinate (Hydrocortisone Sod Succ/Pf 100 Mg Vial) 50 mg IVPUSH Q8H [facility] Last Admin: 02/16/23 13:24 Dose: 50 mg Documented By: FOGARTB Hydroxychloroquine Sulfate (Hydroxychloroquine Sulfate 200 Mg Tablet) 200 mg PO BID [facility] Last Admin: 02/16/23 09:14 Dose: 200 mg Documented By: MARGI Hydroxyzine HCl (Hydroxyzine Hcl 25 Mg Tablet) 25 mg PO DAILY [facility] Last Admin: 02/16/23 09:14 Dose: 25 mg Documented By: MARGI Meropenem 1 gm/ Sodium (Chloride) 100 mls @ 200 mls/hr IV Q12H [facility] Last Infusion: 02/16/23 10:15 Dose: Infused Documented By: MONIQUE Vancomycin HCl 750 mg/ Sodium (Chloride) 265 mls @ 265 mls/hr IV Q24H [facility] Bumetanide 25 mg/ IV (Miscellaneous Supplies) 100 mls @ 4 mls/hr IVCONT .Q24H [facility] Insulin Glargine (Insulin Glargine,Hum.Rec.Anlog 100 Unit/Ml 10 Ml Vial) 10 unit SUBCUT BID [facility] Last Admin: 02/16/23 09:17 Dose: 10 unit Documented By: MARGI Insulin Human Lispro (Insulin Lispro 100 Unit/Ml 3 Ml Vial) 0 unit SUBCUT QIDACHS [facility]; Protocol Last Admin: 02/16/23 12:25 Dose: Not Given Documented By: MONIQUE Non-Admin Reason: pt refusing meal Latanoprost (Latanoprost 0.005 % Ophth Mona 2.5 Ml Drops) 1 drop EYE-BOTH BEDTIME [facility] Last Admin: 02/15/23 21:53 Dose: Not Given Documented By: LES Non-Admin Reason: Med Not Available Levalbuterol HCl (Levalbuterol Hcl 1.25 Mg/3 Ml Vial.Neb) 1.25 mg INHALE RQID [facility] Last Admin: 02/16/23 15:57 Dose: Not Given Documented By: MAREK Non-Admin Reason: See Note Levothyroxine Sodium (Levothyroxine Sodium 175 Mcg Tablet) 175 mcg PO DAILY@0600 [facility] Last Admin: 02/16/23 05:32 Dose: 175 mcg Documented By: AKIL Loperamide HCl (Loperamide Hcl 2 Mg Capsule) 2 mg PO Q4H PRN PRN Reason: Diarrhea Lorazepam (Lorazepam 0.5 Mg Tablet) 0.5 mg PO BID [facility] Last Admin: 02/14/23 23:10 Dose: 0.5 mg Documented By: LAM Magnesium Hydroxide (Milk Of Magnesia 30 Ml Oral.Susp) 30 ml PO DAILY PRN PRN Reason: Constipation Magnesium Oxide (Magnesium Oxide 400 Mg Tablet) 200 mg PO DAILY [facility] Last Admin: 02/16/23 09:13 Dose: 200 mg Documented By: MARGI Melatonin (Melatonin 3 Mg Tablet) 6 mg PO BEDTIME PRN PRN Reason: Insomnia Melatonin (Melatonin 3 Mg Tablet) 6 mg PO BEDTIME [facility] Last Admin: 02/15/23 21:42 Dose: 6 mg Documented By: FARHNAM Pt Own ( Acalabrutinib Maleate [Calquence ( Acalabrutinib Mal)] 100 Mg Tab 100 mg PO BID [facility] Last Admin: 02/16/23 09:12 Dose: 100 mg Documented By: MARGI Nystatin (Nystatin Powder 15 Gm Bottle) 1 appl TOPICAL BID [facility]; Protocol Last Admin: 02/16/23 09:18 Dose: 1 appl Documented By: MARGI Ondansetron HCl (Ondansetron Hcl 4 Mg/2 Ml Vial) 4 mg IVPUSH Q8H PRN PRN Reason: Nausea and Vomiting Pharmacy Consult (Consult Rx Vancomycin Dosing) 1 each MISCELLANE DAILY PRN PRN Reason: Consult order Potassium Chloride (Potassium Chloride Er 20 Meq Tab.Er.Prt) 40 meq PO DAILY [facility] Last Admin: 02/16/23 09:12 Dose: 40 meq Documented By: MARGI Prednisolone Acetate (Prednisolone Acetate 1 % Oph Susp 5 Ml Drpbtl) 1 drop EYE-RIGHT DAILY [facility] Last Admin: 02/16/23 09:27 Dose: 1 drop Documented By: MARGI Prednisone (Prednisone 1 Mg Tablet) 6 mg PO DAILY [facility] Last Admin: 02/15/23 10:45 Dose: 6 mg Documented By: JORDEN Senna (Sennosides 8.6 Mg Tablet) 17.2 mg PO DAILY PRN PRN Reason: Constipation Sitagliptin Phosphate (Sitagliptin Phosphate 100 Mg Tablet) 100 mg PO DAILY [facility] Last Admin: 02/16/23 09:13 Dose: 100 mg Documented By: MARGI Sodium Biphosphate/Sodium Phosphate (Sodium Phosphate,Dyer-Dibasic 133 Ml Enema) 118 ml GA DAILY PRN PRN Reason: Constipation Sodium Chloride (0.9 % Sodium Chloride Flush 3 Ml Syringe) 3 ml IVFLUSH QSHIFT [facility] Last Admin: 02/16/23 09:18 Dose: 3 ml Documented By: MARGI Timolol Maleate (Timolol Maleate 0.5 % Oph Mona 5 Ml Drbtl) 1 drop EYE-RIGHT BID [facility] Last Admin: 02/16/23 09:26 Dose: 1 drop Documented By: MARGI Tiotropium Kelford (Tiotropium Kelford 2.5 Mcg Inhaler) 1 puff INHALE RDAILY [facility] Last Admin: 02/16/23 07:56 Dose: Not Given Documented By: MAREK Non-Admin Reason: See Note Zinc Acetate/Diphenhydramine (Diphenhydramine Hcl 2 % Cream 28 Gm Tube) 1 appl TOPICAL BID [facility]; Protocol Last Admin: 02/16/23 09:28 Dose: 1 appl Documented By: MARGI Labs 02/16/23 08:29 02/16/23 08:29 Labs: Laboratory Results - last 24 hr 02/15/23 02/15/23 02/16/23 17:19 20:58 07:08 MCV MCH MCHC RDW Plt Count MPV Absolute Nucleated RBC Nucleated RBC % (auto) O2 Saturation ABG pH at Pt Temp ABG pCO2 at Pt Temp ABG pO2 at Pt Temp ABG HCO3 ABG Base Excess (Actual) Anion Gap Estim Creat Clear Calc Estimated GFR POC Glucose 195 H 220 H 177 H Random Glucose Calcium Magnesium B-Natriuretic Peptide Blood Type Antibody Screen 02/16/23 02/16/23 02/16/23 08:29 09:51 10:49 MCV 87.4 MCH 24.8 L MCHC 28.4 L RDW 16.0 Plt Count 140 L D MPV 13.0 H Absolute Nucleated RBC 0.000 Nucleated RBC % (auto) 0.0 O2 Saturation 81.0 ABG pH at Pt Temp 7.37 ABG pCO2 at Pt Temp 46 H ABG pO2 at Pt Temp 50 L* ABG HCO3 27 H ABG Base Excess (Actual) 2.3 Anion Gap 16 Estim Creat Clear Calc 34.3 Estimated GFR 27 POC Glucose 193 H Random Glucose 194 H Calcium 8.4 Magnesium 2.3 B-Natriuretic Peptide 1203 H Blood Type B Positive Antibody Screen NEGATIVE Microbiology Microbiology Results: Microbiology 11/13/23 22:11 Blood Culture - Preliminary Blood - Central Line Coag negative Staphylococcus 02/14/23 22:08 Blood Culture - Preliminary Blood - Central Line Coag negative Staphylococcus 02/15/23 Unknown Urine Culture - Preliminary Urine clean catch - Urine malik top Culture in progress. Assessment and Plan (1) (HFpEF) heart failure with preserved ejection fraction: Status: Acute Assessment and Plan: d3 72yo F with HFpEF, CKD3, CLL, chronic hypoxic due to COPD, obesity, LATONYA, HTN, mood disorder, hypothyroidism, DM2 recent admission 02/08-02/12/23 for CHF exacerbation sent to [facility] for rehab, returned for another CHF exacerbation acute/chronic hypoxic resp failure due to acute-chronic HFpEF - will change to bumetanide drip and consult Cardiology; monitor I/O + lytes + BNP - continue BiPAP for hypoxia + respiratory fatigue hypotension - resolving with stress-dose hydrocortisone + holding amlodipine - wean hydrocortisone once BP improves; eventual taper to home dose of prednisone 6 mg/d UTI [hx ESBL] - meropenem d3, ID consult pending bacteremia, not - 2 Coag-neg staph, will d/c vancomycin CKD3 - SCr at baseline, monitor carefully with diuresis hx HTN - amlodipine on hold due to hypotension COPD - continue Breo, tiotropium, prn nebs HLD - statin mood disorder - continue Librium, lorazepam hypothyroidism - continue LT4 CLL - continue acalabrutinib; on prednisone 6 mg/d but now on stress-dose hydrocortisone DM2 - basal-bolus insulin morbid obesity - diet/exercise counseling VTE ppx - LMWH dispo - eventual return to SNF for STR Discussed with pt's daughter/HCP Patricia, [phone], who is en route to the hospital. The patient remains full code for now as per [facility]ST 12/03/22 and verbal discussion now but Patricia will discuss with her mother whether she would continue to want full resuscitative measures in case of respiratory decompensation. For any change in clinical status, Patricia should be contacted. In my clinical judgment, the patient requires continued inpatient hospitalization for the following reasons: IV diuresis, oxygen, BiPAP Total time managing care of this patient today: 55 minutes. Quality Stroke Does the patient have a stroke diagnosis?: No VTE Prior VTE?: No VTE Risk Level:: Medical - moderate - high VTE Device Contraindication: Treatment Not Indicated VTE Drug Contraindication: N/A - Med Ordered
[2023-02-16] MEDS: Bumetanide 25 MG in Container,Empty 0 ML 4 MG IVCONT (17:28)
[2023-02-16 21:20] LABS: Glucose, Whole Blood 167 mg/dL (60-115)
[2023-02-16] MEDS: Enoxaparin Sodium 40 MG/0.4 ML SYRINGE SUBCUT (21:29)
[2023-02-16] MEDS: Latanoprost 0.005 % Ophth Sol 2.5 ML DROPS 1 DROP EYE-BOTH (22:13)
[2023-02-17] VITALS (10 sets, daily range): BP systolic 106–126; BP diastolic 50–59; PULSE 72–83; RESP 16–22; TEMP 36.1–36.6; O2SAT 90–98
[2023-02-17] MEDS: Hydrocortisone Sod Succ/PF 100 MG VIAL 50 MG IVPUSH (05:59)
[2023-02-17 06:29] LABS: Hematocrit 24.7 % (37.0-47.0); Hemoglobin 7.1 g/dl (12.0-16.0); Mean Corpuscular HGB Conc 28.7 g/dl (31.0-35.0); Platelet Count 173 X10*3/uL (160-400); Red Blood Count 2.84 X10*6/uL (4.20-5.50)
[2023-02-17 06:48] LABS: Anion Gap 13 (12-20); Blood Urea Nitrogen 41 mg/dL (9-16); Calcium 8.1 mg/dL (8.4-10.2); Carbon Dioxide 28 mmol/L (22-29); Chloride 107 mmol/L (96-108); Creatinine Clr Calc Pharmacy 39.9; Estimated Glomerular Filt Rate 32; Glucose Random 64 mg/dL (60-115); Magnesium 2.2 mg/dL (1.6-2.6); Potassium 4.2 mmol/L (3.3-5.1); Sodium 144 mmol/L (135-145)
[2023-02-17 06:51] LABS: B Type Natriuretic Peptide 849 pg/mL (<100)
[2023-02-17] MEDS: Nystatin Powder 15 GM BOTTLE 1 APPL TOPICAL (07:15)
[2023-02-17] MEDS: diphenhydrAMINE HCl 2 % Cream 28 GM TUBE 1 APPL TOPICAL ×2 (07:15→21:20)
[2023-02-17] MEDS: prednisoLONE Acetate 1 % Oph Susp 5 ML DRPBTL 1 DROP EYE-RIGHT (07:16)
[2023-02-17] MEDS: Dextrose 50 % 25 GM/50 ML SYRINGE IVPUSH (07:16)
[2023-02-17] MEDS: timoloL maleate 0.5 % Oph Sol 5 ML DRBTL 1 DROP EYE-RIGHT ×2 (07:16→21:20)
[2023-02-17] MEDS: Brimonidine Tartrate 0.2% Oph 5 ML BOTTLE 1 DROP EYE-RIGHT ×2 (07:16→21:20)
[2023-02-17] MEDS: Artificial Tears 15 ML DROPS 1 DROP EYE-BOTH ×2 (07:16→21:19)
[2023-02-17] MEDS: Dorzolamide HCl 2 % Ophth Sol 10 ML DRPBTL 1 DROP EYE-RIGHT ×2 (07:16→21:20)
[2023-02-17 07:17] LABS: Glucose, Whole Blood 56 mg/dL (60-115)
[2023-02-17] MEDS: levalbuterol HCL 1.25 MG/3 ML VIAL.NEB INHALE ×4 (07:56→20:07)
[2023-02-17] MEDS: Fluticasone/Vilanterol 200/25 BLST.W.DEV 1 PUFF INHALE (07:57)
[2023-02-17 08:06] LABS: Glucose, Whole Blood 121 mg/dL (60-115)
[2023-02-17] MEDS: SITagliptin Phosphate 100 MG TABLET PO (09:02)
[2023-02-17] MEDS: hydrOXYzine HCL 25 MG TABLET PO (09:02)
[2023-02-17] MEDS: Magnesium Oxide 400 MG TABLET 200 MG PO (09:02)
[2023-02-17] MEDS: Escitalopram Oxalate 10 MG TABLET PO (09:03)
[2023-02-17] MEDS: Potassium Chloride ER 20 MEQ TAB.ER.PRT 40 MEQ PO (09:04)
--- NOTE | 2023-02-17 10:15 | PM.CNCAR ---
History of Present Illness History of Present Illness Date of Service: 02/17/23 Chief complaint: Dyspnea Narrative: This is a cardiology consultation regarding possible congestive heart failure. Recently seen in consultation few weeks back. Patient has multiple medical comorbidities including heart failure preserved ejection fraction, chronic kidney disease, COPD, diabetes, LATONYA, heart block, obesity among others. At that time, she was treated for acute on chronic heart failure/respiratory failure and she also had second-degree heart block. It seems that she was appropriately treated, then beta-blockers were stopped and after that she actually got discharged. Current admission is for yet another episode of suspected congestive heart failure. Patient apparently had increasing shortness of breath. She has got minimal ambulation if any at baseline. Otherwise, it seems that she has been put on a Bumex drip for suspected heart failure. Patient states she is still feeling of just about the same as before. Review of Systems Review of Systems: Yes all other systems are reviewed and are negative Constitutional: Constitutional: Reports as per HPI and Reports no additional constitutional complaints Eyes: Eyes: Reports as per HPI and Denies no additional eye complaints ENT: Denies system reviewed and no additional complaints, except as documented and Reports as per HPI Cardiovascular: Cardiovascular: Reports as per HPI, Reports no additional cardiovascular complaints, Denies acrocyanosis, Denies cool extremities, Denies chest pain, Denies leg edema, Denies lightheadedness, Denies palpitations and Reports dyspnea Respiratory: Respiratory: Reports as per HPI, Denies no additional respiratory complaints and Reports dyspnea Gastrointestinal: Gastrointestinal: Reports as per HPI and Denies no additional gastrointestinal complaints Genitourinary: Genitourinary: Reports as per HPI Musculoskeletal: Musculoskeletal: Reports no additional musculoskeletal complaints and Reports as per HPI Integumentary/Breasts: Skin/Breast: Reports system reviewed and no additional complaints, except as docu Neurologic: Reports system reviewed and no additional complaints, except as documented and Reports as per HPI Psychiatric: Psychiatric: Reports no additional psychiatric complaints and Reports as per HPI Endocrine: Endocrine: Reports no additional endocrine complaints, Reports as per HPI and Denies palpitations Hematologic/Lymphatic: Hematologic/Lymphatic: Reports no additional hematologic/lymphatic complaints and Reports as per HPI Allergic/Immunologic: Allergic/Immunologic: Reports no additional allergic/immunologic complaints and Reports as per HPI [facility], [facility] Past Medical History Medical History Congestive heart failure LATONYA (obstructive sleep apnea) Anemia Hypoventilation associated with obesity COVID Congestive heart failure CKD (chronic kidney disease) stage 3, GFR 30-59 ml/min Acute respiratory failure with hypoxia Rash Heart block AV second degree Morbid obesity Acute UTI Acute kidney injury superimposed on CKD Bradycardia Pleural effusion Acute respiratory failure Pneumonia due to COVID-19 virus Chronic lymphocytic leukemia (CLL), B-cell Dyspnea Congestive heart failure COVID-19 Hypoxia Influenza A CLL (chronic lymphocytic leukemia) Suspected deep tissue injury Klebsiella pneumonia Infection with ESBL Klebsiella oxytoca Lymphadenopathy, mediastinal Pleural effusion Congestive heart failure Essential hypertension COVID Lower extremity edema Migraine HTN (hypertension) Pseudotumor cerebri PVD (peripheral vascular disease) Obesity CKD (chronic kidney disease) Diabetes mellitus with insulin therapy Hypothyroidism HLD (hyperlipidemia) Family History Family History Mother Heart attack, Onset Age: 92 Father Heart attack, Onset Age: 66 Other Diabetes Surgical History Surgical History S/P appendectomy H/O cataract extraction H/O hysterectomy for benign disease Hx of cholecystectomy Social History Social History Household Members: Other Household Members Other:: Assisted living facility Housing: [facility] Alcohol intake: never Patient Tobacco Use Status: Former Tobacco user Second Hand Smoke Exposure: No Advance Directives Date on File: 09/26/20 service: No Current occupational status: disabled Meds Allergies Allergy/AdvReac Type Severity Reaction Status Date / Time oxycodone [From Percocet] Allergy Intermediate Rash Verified 02/14/23 19:05 lisinopril Allergy Unknown Unknown Verified 02/14/23 19:05 metoprolol AdvReac Severe bradycardia Verified 02/14/23 19:05 Active Medications: Current Medications Acetaminophen (Acetaminophen 325 Mg Tablet) 650 mg PO Q6H PRN PRN Reason: Pain, Mild (Pain Scale 1-3) Acetaminophen/Butalbital/Caffeine (Butalb/Acetamin/Caff 50/325/40 Tablet) 1 tab PO Q6H PRN PRN Reason: Headache Albuterol/Ipratropium (Albuterol/Iprat 2.5/0.5mg 3 Ml Ampul.Neb) 3 ml INHALE Q4H PRN PRN Reason: Wheezing Last Admin: 02/15/23 06:11 Dose: 3 ml Amlodipine Besylate (Amlodipine Besylate 10 Mg Tablet) 10 mg PO DAILY [facility]; Protocol Last Admin: 02/15/23 09:22 Dose: Not Given Artificial Tears (Artificial Tears 15 Ml Drops) 1 drop EYE-BOTH BID [facility] Last Admin: 02/17/23 07:16 Dose: 1 drop Atorvastatin Calcium (Atorvastatin Calcium 10 Mg Tablet) 10 mg PO BEDTIME [facility] Last Admin: 02/16/23 21:14 Dose: Not Given Bisacodyl (Bisacodyl 10 Mg Supp.Rect) 10 mg ND DAILY PRN PRN Reason: Constipation Brimonidine Tartrate (Brimonidine Tartrate 0.2% Oph 5 Ml Bottle) 1 drop EYE-RIGHT BID [facility] Last Admin: 02/17/23 07:16 Dose: 1 drop Chlordiazepoxide HCl (Chlordiazepoxide Hcl 5 Mg Capsule) 10 mg PO BEDTIME [facility] Dextrose (Dextrose 50 % 25 Gm/50 Ml Syringe) 25 gm IVPUSH Q15M PRN; Protocol PRN Reason: per Hypoglycemia Standing Ord. Last Admin: 02/17/23 07:16 Dose: 25 gm Dorzolamide HCl (Dorzolamide Hcl 2 % Ophth Mona 10 Ml Drpbtl) 1 drop EYE-RIGHT BID [facility] Last Admin: 02/17/23 07:16 Dose: 1 drop Enoxaparin Sodium (Enoxaparin Sodium 40 Mg/0.4 Ml Syringe) 40 mg SUBCUT Q24H [facility] Last Admin: 02/16/23 21:29 Dose: 40 mg Escitalopram Oxalate (Escitalopram Oxalate 10 Mg Tablet) 10 mg PO DAILY [facility] Last Admin: 02/17/23 09:03 Dose: 10 mg Fluticasone/Vilanterol (Fluticasone/Vilanterol 200/25 Blst.W.Dev) 1 puff INHALE RDAILY [facility] Last Admin: 02/17/23 07:57 Dose: 1 puff Glucose (Glucose Gel 15 Gm Gel..Gram.) 15 gm PO Q15M PRN; Protocol PRN Reason: per Hypoglycemia Standing Ord. Guaifenesin (Guaifenesin La 600 Mg Tab.Er.12h) 600 mg PO BID [facility] Last Admin: 02/17/23 09:12 Dose: Not Given Hydrocortisone Sodium Succinate (Hydrocortisone Sod Succ/Pf 100 Mg Vial) 25 mg IVPUSH Q8H [facility] Hydroxychloroquine Sulfate (Hydroxychloroquine Sulfate 200 Mg Tablet) 200 mg PO BID [facility] Last Admin: 02/17/23 09:12 Dose: Not Given Hydroxyzine HCl (Hydroxyzine Hcl 25 Mg Tablet) 25 mg PO DAILY [facility] Last Admin: 02/17/23 09:02 Dose: 25 mg Meropenem 1 gm/ Sodium (Chloride) 100 mls @ 200 mls/hr IV Q12H [facility] Last Infusion: 02/17/23 10:11 Dose: Infused Bumetanide 25 mg/ IV (Miscellaneous Supplies) 100 mls @ 4 mls/hr IVCONT .Q24H [facility] Last Admin: 02/16/23 17:28 Dose: 1 mg/hr, 4 mls/hr Insulin Human Lispro (Insulin Lispro 100 Unit/Ml 3 Ml Vial) 0 unit SUBCUT QIDACHS [facility]; Protocol Last Admin: 02/17/23 07:25 Dose: Not Given Latanoprost (Latanoprost 0.005 % Ophth Mona 2.5 Ml Drops) 1 drop EYE-BOTH BEDTIME [facility] Last Admin: 02/16/23 22:13 Dose: 1 drop Levalbuterol HCl (Levalbuterol Hcl 1.25 Mg/3 Ml Vial.Neb) 1.25 mg INHALE RQID [facility] Last Admin: 02/17/23 07:56 Dose: 1.25 mg Levothyroxine Sodium (Levothyroxine Sodium 175 Mcg Tablet) 175 mcg PO DAILY@0600 [facility] Last Admin: 02/17/23 05:57 Dose: Not Given Loperamide HCl (Loperamide Hcl 2 Mg Capsule) 2 mg PO Q4H PRN PRN Reason: Diarrhea Lorazepam (Lorazepam 0.5 Mg Tablet) 0.5 mg PO BID [facility] Last Admin: 02/14/23 23:10 Dose: 0.5 mg Magnesium Hydroxide (Milk Of Magnesia 30 Ml Oral.Susp) 30 ml PO DAILY PRN PRN Reason: Constipation Magnesium Oxide (Magnesium Oxide 400 Mg Tablet) 200 mg PO DAILY [facility] Last Admin: 02/17/23 09:02 Dose: 200 mg Melatonin (Melatonin 3 Mg Tablet) 6 mg PO BEDTIME PRN PRN Reason: Insomnia Melatonin (Melatonin 3 Mg Tablet) 6 mg PO BEDTIME [facility] Last Admin: 02/16/23 21:15 Dose: Not Given Pt Own ( Acalabrutinib Maleate [Calquence ( Acalabrutinib Mal)] 100 Mg Tab 100 mg PO BID [facility] Last Admin: 02/17/23 09:01 Dose: 100 mg Nystatin (Nystatin Powder 15 Gm Bottle) 1 appl TOPICAL BID [facility]; Protocol Last Admin: 02/17/23 07:15 Dose: 1 appl Ondansetron HCl (Ondansetron Hcl 4 Mg/2 Ml Vial) 4 mg IVPUSH Q8H PRN PRN Reason: Nausea and Vomiting Potassium Chloride (Potassium Chloride Er 20 Meq Tab.Er.Prt) 40 meq PO DAILY [facility] Last Admin: 02/17/23 09:04 Dose: 40 meq Prednisolone Acetate (Prednisolone Acetate 1 % Oph Susp 5 Ml Drpbtl) 1 drop EYE-RIGHT DAILY [facility] Last Admin: 02/17/23 07:16 Dose: 1 drop Prednisone (Prednisone 1 Mg Tablet) 6 mg PO DAILY [facility] Last Admin: 02/15/23 10:45 Dose: 6 mg Senna (Sennosides 8.6 Mg Tablet) 17.2 mg PO DAILY PRN PRN Reason: Constipation Sitagliptin Phosphate (Sitagliptin Phosphate 100 Mg Tablet) 100 mg PO DAILY [facility] Last Admin: 02/17/23 09:02 Dose: 100 mg Sodium Biphosphate/Sodium Phosphate (Sodium Phosphate,Seneca-Dibasic 133 Ml Enema) 118 ml ND DAILY PRN PRN Reason: Constipation Sodium Chloride (0.9 % Sodium Chloride Flush 3 Ml Syringe) 3 ml IVFLUSH QSHIFT [facility] Last Admin: 02/17/23 07:26 Dose: Not Given Timolol Maleate (Timolol Maleate 0.5 % Oph Mona 5 Ml Drbtl) 1 drop EYE-RIGHT BID [facility] Last Admin: 02/17/23 07:16 Dose: 1 drop Tiotropium Watkins (Tiotropium Watkins 2.5 Mcg Inhaler) 1 puff INHALE RDAILY [facility] Last Admin: 02/17/23 07:57 Dose: 1 puff Zinc Acetate/Diphenhydramine (Diphenhydramine Hcl 2 % Cream 28 Gm Tube) 1 appl TOPICAL BID [facility]; Protocol Last Admin: 02/17/23 07:15 Dose: 1 appl Home Medications Medication Instructions Recorded Confirmed Last Taken Type chlordiazepoxide HCl 10 mg capsule 10 mg PO BEDTIME 10/08/21 02/14/23 Unknown History citalopram 20 mg tablet 20 mg PO DAILY 10/08/21 02/14/23 Unknown History insulin lispro protamine-lispro 0 unit subcut QIDACHS 10/08/21 02/14/23 Unknown History 100 unit/mL (75-25) subcutaneous pen levothyroxine 175 mcg tablet 175 mcg PO DAILY@0600 10/08/21 02/14/23 Unknown History simvastatin 20 mg tablet 20 mg PO BEDTIME 10/08/21 02/14/23 Unknown History sitagliptin phosphate 100 mg 100 mg PO DAILY 10/08/21 02/14/23 Unknown History tablet (Januvia) latanoprost 0.005 % eye drops 1 drp ophthalmic (eye) BEDTIME 11/20/21 02/14/23 Unknown History albuterol sulfate 0.63 mg/3 mL 0.63 mg inhalation Q2H PRN 02/16/22 02/14/23 Unknown History solution for nebulization Shortness Of Breath Or Wheezing brinzolamide 1 %-brimonidine 0.2 % 1 drp ophthalmic-Right BID 02/16/22 02/14/23 Unknown History eye drops,suspension (Simbrinza) [id number]-vibjwora 1 tab PO Q6H PRN Headache 02/16/22 02/14/23 Unknown History 50 mg-325 mg-40 mg tablet coenzyme Q10 100 mg capsule 150 mg PO DAILY 02/16/22 02/14/23 Unknown History (CoQ-10) insulin glargine 100 unit/mL (3 16 unit subcut BID 02/16/22 02/14/23 Unknown History mL) subcutaneous pen (Lantus Solostar U-100 Insulin) melatonin 5 mg tablet 5 mg PO BEDTIME 02/16/22 02/14/23 Unknown History prednisolone acetate 1 % eye 1 drp ophthalmic-Right DAILY 02/16/22 02/14/23 Unknown History drops,suspension sennosides 8.6 mg tablet (senna) 17.2 mg PO DAILY PRN Constipation 02/16/22 02/14/23 Unknown History timolol maleate 0.5 % eye drops 1 drp ophthalmic-Right BID 02/16/22 02/14/23 Unknown History carboxymethylcellulose sodium 1 % 1 drp ophthalmic (eye) BID 03/15/22 02/14/23 Unknown History eye drops (Artificial Tears (carboxymethylcellulose)) budesonide-formoterol HFA 160 2 puff inhalation BID 04/27/22 02/14/23 Unknown History mcg-4.5 mcg/actuation aerosol inhaler (Symbicort) umeclidinium 62.5 mcg/actuation 1 inh inhalation DAILY 04/27/22 02/14/23 Unknown History blister powder for inhalation (Incruse Ellipta) acetaminophen 325 mg tablet 650 mg PO Q4H PRN Pain (Scale 06/08/22 02/14/23 Unknown History (Tylenol) Score 4-6) amlodipine 10 mg tablet 10 mg PO DAILY high blood pressure 06/08/22 02/14/23 Unknown History guaifenesin 600 mg tablet, 600 mg PO BID cough 06/08/22 02/14/23 Unknown History extended release 12 hr sodium phosphates 19 gram-7 118 ml ND DAILY PRN Constipation 06/08/22 02/14/23 Unknown History gram/118 mL enema (Fleet Enema) levalbuterol HCl 1.25 mg/3 mL 1.25 mg inhalation QID 07/30/22 02/14/23 Unknown History solution for nebulization biotin 5 mg tablet 5 mg PO DAILY 08/11/22 02/14/23 Unknown History bisacodyl 10 mg rectal suppository 10 mg ND DAILY PRN Constipation 08/11/22 02/14/23 Unknown History hydroxychloroquine 200 mg tablet 200 mg PO BID 08/11/22 02/14/23 Unknown History hydroxyzine HCl 25 mg tablet 25 mg PO DAILY 08/11/22 02/14/23 Unknown History lorazepam 0.5 mg tablet 0.5 mg PO BID Anxiety 08/11/22 02/14/23 Unknown History magnesium 200 mg tablet 200 mg PO DAILY 08/11/22 02/14/23 Unknown History riboflavin (vitamin B2) 400 mg 400 mg PO DAILY 08/11/22 02/14/23 Unknown History tablet diphenhydramine-zinc acetate 2 1 appl topical BID 10/27/22 02/14/23 Unknown History %-0.1 % topical cream nystatin 100,000 unit/gram topical 1 appl topical BID 10/27/22 02/14/23 Unknown History powder prednisone 1 mg tablet 6 mg PO DAILY 10/27/22 02/14/23 Unknown History bumetanide 1 mg tablet 2 mg PO BID@0900,1400 12/31/22 02/14/23 Unknown History acalabrutinib maleate 100 mg 100 mg PO BID 02/08/23 02/14/23 Unknown History tablet (Calquence (acalabrutinib maleate)) loperamide 2 mg capsule 2 mg PO Q4H PRN Diarrhea 02/08/23 02/14/23 Unknown History magnesium hydroxide 400 mg/5 mL 30 ml PO DAILY PRN Constipation 02/08/23 02/14/23 Unknown History oral suspension (Milk of Magnesia) Lactobacillus acidophilus 1 tab PO DAILY 02/14/23 02/14/23 Unknown History (Acidophilus chewable tablet) Physical Exam Vital Signs: Vital Signs: Last Vital Signs Temp 97.7 F 02/17/23 07:16 Pulse 77 02/17/23 08:08 Resp 20 02/17/23 08:08 BP 126/59 L 02/17/23 07:16 Pulse Ox 90 L 02/17/23 07:16 O2 Del Method BiPAP 02/17/23 07:16 O2 Flow Rate 4 02/17/23 03:38 Oxygen Flow Rate 4 02/15/23 02:59 BMI result Body Mass Index 45.8 Const: General: comfortable and no acute distress Orientation/consciousness: patient oriented x3 HEENT: Other: Unremarkable Head: Yes normal to inspection Neck: Neck: Yes normal visual inspection Chest: Chest palpation & inspection: normal inspection of the chest Resp: Auscultation: wheezes and diminished lung sounds Cardio: Palpation: normal PMI Heart sounds: S1 normal heart sound present, S2 normal heart sound present, no gallops, no murmurs and no rubs GI: Palpation (GI): Soft to palpation Back/Spine/Pelvis: Other: unremarkable Skin: General skin exam: no rashes or lesions noted Neuro: General: patient oriented x3 Extrem: Other: Chronic changes without much of swelling. General: Yes normal to inspection Psych: Mental Status: mental status grossly normal Objective Labs and Meds 02/17/23 06:15 02/17/23 06:15 Lab results: Laboratory Results - last 24 hr 02/16/23 02/16/23 02/17/23 10:49 21:16 06:15 WBC 16.0 H RBC 2.84 L Hgb 7.1 L Hct 24.7 L MCV 87.0 MCH 25.0 L MCHC 28.7 L RDW 16.0 Plt Count 173 MPV 12.0 Absolute Nucleated RBC 0.000 Nucleated RBC % (auto) 0.0 Sodium 144 Potassium 4.2 Chloride 107 Carbon Dioxide 28 Anion Gap 13 BUN 41 H Creatinine 1.60 H Estim Creat Clear Calc 39.9 Estimated GFR 32 POC Glucose 193 H 167 H Random Glucose 64 Calcium 8.1 L Magnesium 2.2 B-Natriuretic Peptide 849 H 02/17/23 02/17/23 07:01 08:02 WBC RBC Hgb Hct MCV MCH MCHC RDW Plt Count MPV Absolute Nucleated RBC Nucleated RBC % (auto) Sodium Potassium Chloride Carbon Dioxide Anion Gap BUN Creatinine Estim Creat Clear Calc Estimated GFR POC Glucose 56 L* 121 H Random Glucose Calcium Magnesium B-Natriuretic Peptide ECG Interpretation: EKG with sinus rhythm at 75/Min; nonspecific IVCD; nonspecific ST-T changes. Borderline ND prolongation 206 milliseconds. Assessment and Plan (1) Acute on chronic heart failure with preserved ejection fraction: Status: Acute (2) Acute and chronic respiratory failure with hypoxia: Status: Acute Plan Per chest x-ray, bilateral pleural effusions. Bibasilar consolidation/atelectasis. There is suggestion of pulmonary edema as well. Cardiac BNP elevated. Initially, 1667. Currently 849. Troponins are within acceptable range. Hyperdynamic LVEF. Possible mitral stenosis from severe mitral annular calcification. Moderately dilated IVC with less than 50% collapse with inspiration. Overall, suspected diastolic heart failure with acute exacerbation and many comorbidities. A prognosis is guarded. It seems that she is already on a Bumex drip. We can add some metolazone to the regimen. Will need to monitor creatinine as it is already high. Will need to discuss goals of care with family. Discussed with . Procedures Date of Service Date of Service: 02/17/23
[2023-02-17 11:03] LABS: Glucose, Whole Blood 170 mg/dL (60-115)
--- NOTE | 2023-02-17 11:30 | P.PNIM_ITS ---
Subjective Subjective Date of Service: 02/17/23 Interval History: Breathing slightly better, starting to diurese gradually but still dyspneic No chest pain Review of Systems Review of Systems: Yes all other systems are reviewed and are negative Physical Exam 2 Vital Signs: Vital Signs: Last Vital Signs Temp 97.6 F 02/17/23 11:02 Pulse 80 02/17/23 11:29 Resp 20 02/17/23 11:29 BP 113/58 L 02/17/23 11:02 Pulse Ox 96 02/17/23 11:02 O2 Del Method Nasal Cannula 02/17/23 11:02 O2 Flow Rate 4 02/17/23 11:02 Oxygen Flow Rate 4 02/15/23 02:59 BMI result Body Mass Index 45.8 Gen: mild resp distress, ill-appearing HEENT: sclera anicteric, moist mucus membranes Neck: supple Lungs: diminished Heart: regular rate and rhythm, no murmurs Abd: soft, non-tender, non-distended, obese Ext: 2+ edema to legs bilaterally Skin: warm/well-perfused Neuro: alert and oriented x3, no focal findings Psych: appropriate affect Objective Data Active Medications Acetaminophen (Acetaminophen 325 Mg Tablet) 650 mg PO Q6H PRN PRN Reason: Pain, Mild (Pain Scale 1-3) Acetaminophen/Butalbital/Caffeine (Butalb/Acetamin/Caff 50/325/40 Tablet) 1 tab PO Q6H PRN PRN Reason: Headache Albuterol/Ipratropium (Albuterol/Iprat 2.5/0.5mg 3 Ml Ampul.Neb) 3 ml INHALE Q4H PRN PRN Reason: Wheezing Last Admin: 02/15/23 06:11 Dose: 3 ml Documented By: KEITH Amlodipine Besylate (Amlodipine Besylate 10 Mg Tablet) 10 mg PO DAILY [facility]; Protocol Last Admin: 02/15/23 09:22 Dose: Not Given Documented By: JORDEN Non-Admin Reason: bp 99/37- md parsons awre Artificial Tears (Artificial Tears 15 Ml Drops) 1 drop EYE-BOTH BID [facility] Last Admin: 02/17/23 07:16 Dose: 1 drop Documented By: MONIQUE Atorvastatin Calcium (Atorvastatin Calcium 10 Mg Tablet) 10 mg PO BEDTIME [facility] Last Admin: 02/16/23 21:14 Dose: Not Given Documented By: JEANETTE Non-Admin Reason: Physician Held Med Bisacodyl (Bisacodyl 10 Mg Supp.Rect) 10 mg NV DAILY PRN PRN Reason: Constipation Brimonidine Tartrate (Brimonidine Tartrate 0.2% Oph 5 Ml Bottle) 1 drop EYE- RIGHT BID [facility] Last Admin: 02/17/23 07:16 Dose: 1 drop Documented By: MONIQUE Chlordiazepoxide HCl (Chlordiazepoxide Hcl 5 Mg Capsule) 10 mg PO BEDTIME [facility] Dextrose (Dextrose 50 % 25 Gm/50 Ml Syringe) 25 gm IVPUSH Q15M PRN; Protocol PRN Reason: per Hypoglycemia Standing Ord. Last Admin: 02/17/23 07:16 Dose: 25 gm Documented By: MONIQUE Dorzolamide HCl (Dorzolamide Hcl 2 % Ophth Mona 10 Ml Drpbtl) 1 drop EYE-RIGHT BID [facility] Last Admin: 02/17/23 07:16 Dose: 1 drop Documented By: MONIQUE Enoxaparin Sodium (Enoxaparin Sodium 40 Mg/0.4 Ml Syringe) 40 mg SUBCUT Q24H [facility] Last Admin: 02/16/23 21:29 Dose: 40 mg Documented By: JEANETTE Escitalopram Oxalate (Escitalopram Oxalate 10 Mg Tablet) 10 mg PO DAILY [facility] Last Admin: 02/17/23 09:03 Dose: 10 mg Documented By: KATHI Fluticasone/Vilanterol (Fluticasone/Vilanterol 200/25 Blst.W.Dev) 1 puff INHALE RDAILY [facility] Last Admin: 02/17/23 07:57 Dose: 1 puff Documented By: REANNA Glucose (Glucose Gel 15 Gm Gel..Gram.) 15 gm PO Q15M PRN; Protocol PRN Reason: per Hypoglycemia Standing Ord. Guaifenesin (Guaifenesin La 600 Mg Tab.Er.12h) 600 mg PO BID [facility] Last Admin: 02/17/23 09:12 Dose: Not Given Documented By: KATHI Non-Admin Reason: med cannot be crushed/md aware Hydrocortisone Sodium Succinate (Hydrocortisone Sod Succ/Pf 100 Mg Vial) 25 mg IVPUSH Q8H [facility] Hydroxychloroquine Sulfate (Hydroxychloroquine Sulfate 200 Mg Tablet) 200 mg PO BID [facility] Last Admin: 02/17/23 09:12 Dose: Not Given Documented By: KATHI Non-Admin Reason: med cannot be crushed/md aware Hydroxyzine HCl (Hydroxyzine Hcl 25 Mg Tablet) 25 mg PO DAILY [facility] Last Admin: 02/17/23 09:02 Dose: 25 mg Documented By: KATHI Meropenem 1 gm/ Sodium (Chloride) 100 mls @ 200 mls/hr IV Q12H [facility] Last Infusion: 02/17/23 10:11 Dose: Infused Documented By: MONIQUE Bumetanide 25 mg/ IV (Miscellaneous Supplies) 100 mls @ 4 mls/hr IVCONT .Q24H [facility] Last Admin: 02/16/23 17:28 Dose: 1 mg/hr, 4 mls/hr Documented By: RAYNA Insulin Human Lispro (Insulin Lispro 100 Unit/Ml 3 Ml Vial) 0 unit SUBCUT QIDACHS [facility]; Protocol Last Admin: 02/17/23 07:25 Dose: Not Given Documented By: MONIQUE Non-Admin Reason: No Insulin Coverage Latanoprost (Latanoprost 0.005 % Ophth Mona 2.5 Ml Drops) 1 drop EYE-BOTH BEDTIME [facility] Last Admin: 02/16/23 22:13 Dose: 1 drop Documented By: JEANETTE Levalbuterol HCl (Levalbuterol Hcl 1.25 Mg/3 Ml Vial.Neb) 1.25 mg INHALE RQID [facility] Last Admin: 02/17/23 11:28 Dose: 1.25 mg Documented By: LUIS Levothyroxine Sodium (Levothyroxine Sodium 175 Mcg Tablet) 175 mcg PO DAILY@0600 [facility] Last Admin: 02/17/23 05:57 Dose: Not Given Documented By: JEANETTE Non-Admin Reason: Physician Held Med Loperamide HCl (Loperamide Hcl 2 Mg Capsule) 2 mg PO Q4H PRN PRN Reason: Diarrhea Lorazepam (Lorazepam 0.5 Mg Tablet) 0.5 mg PO BID [facility] Last Admin: 02/14/23 23:10 Dose: 0.5 mg Documented By: LAM Magnesium Hydroxide (Milk Of Magnesia 30 Ml Oral.Susp) 30 ml PO DAILY PRN PRN Reason: Constipation Magnesium Oxide (Magnesium Oxide 400 Mg Tablet) 200 mg PO DAILY [facility] Last Admin: 02/17/23 09:02 Dose: 200 mg Documented By: KATHI Melatonin (Melatonin 3 Mg Tablet) 6 mg PO BEDTIME PRN PRN Reason: Insomnia Melatonin (Melatonin 3 Mg Tablet) 6 mg PO BEDTIME [facility] Last Admin: 02/16/23 21:15 Dose: Not Given Documented By: JEANETTE Non-Admin Reason: Physician Held Med Metolazone (Metolazone 5 Mg Tablet) 5 mg PO QAM [facility] Pt Own ( Acalabrutinib Maleate [Calquence ( Acalabrutinib Mal)] 100 Mg Tab 100 mg PO BID [facility] Last Admin: 02/17/23 09:01 Dose: 100 mg Documented By: KATHI Nystatin (Nystatin Powder 15 Gm Bottle) 1 appl TOPICAL BID [facility]; Protocol Last Admin: 02/17/23 07:15 Dose: 1 appl Documented By: MONIQUE Ondansetron HCl (Ondansetron Hcl 4 Mg/2 Ml Vial) 4 mg IVPUSH Q8H PRN PRN Reason: Nausea and Vomiting Potassium Chloride (Potassium Chloride Er 20 Meq Tab.Er.Prt) 40 meq PO DAILY [facility] Last Admin: 02/17/23 09:04 Dose: 40 meq Documented By: KATHI Prednisolone Acetate (Prednisolone Acetate 1 % Oph Susp 5 Ml Drpbtl) 1 drop EYE-RIGHT DAILY [facility] Last Admin: 02/17/23 07:16 Dose: 1 drop Documented By: MONIQUE Prednisone (Prednisone 1 Mg Tablet) 6 mg PO DAILY [facility] Last Admin: 02/15/23 10:45 Dose: 6 mg Documented By: JORDEN Senna (Sennosides 8.6 Mg Tablet) 17.2 mg PO DAILY PRN PRN Reason: Constipation Sitagliptin Phosphate (Sitagliptin Phosphate 100 Mg Tablet) 100 mg PO DAILY [facility] Last Admin: 02/17/23 09:02 Dose: 100 mg Documented By: KATHI Sodium Biphosphate/Sodium Phosphate (Sodium Phosphate,[place]-Dibasic 133 Ml Enema) 118 ml NV DAILY PRN PRN Reason: Constipation Sodium Chloride (0.9 % Sodium Chloride Flush 3 Ml Syringe) 3 ml IVFLUSH QSHIFT [facility] Last Admin: 02/17/23 07:26 Dose: Not Given Documented By: MONIQUE Non-Admin Reason: IV Running Timolol Maleate (Timolol Maleate 0.5 % Oph Mona 5 Ml Drbtl) 1 drop EYE-RIGHT BID [facility] Last Admin: 02/17/23 07:16 Dose: 1 drop Documented By: MONIQUE Tiotropium [place] (Tiotropium [place] 2.5 Mcg Inhaler) 1 puff INHALE RDAILY [facility] Last Admin: 02/17/23 07:57 Dose: 1 puff Documented By: REANNA Zinc Acetate/Diphenhydramine (Diphenhydramine Hcl 2 % Cream 28 Gm Tube) 1 appl TOPICAL BID [facility]; Protocol Last Admin: 02/17/23 07:15 Dose: 1 appl Documented By: MONIQUE Labs 02/17/23 06:15 02/17/23 06:15 Labs: Laboratory Results - last 24 hr 02/16/23 02/17/23 02/17/23 21:16 06:15 07:01 MCV 87.0 MCH 25.0 L MCHC 28.7 L RDW 16.0 Plt Count 173 MPV 12.0 Absolute Nucleated RBC 0.000 Nucleated RBC % (auto) 0.0 Anion Gap 13 Estim Creat Clear Calc 39.9 Estimated GFR 32 POC Glucose 167 H 56 L* Random Glucose 64 Calcium 8.1 L Magnesium 2.2 B-Natriuretic Peptide 849 H 02/17/23 02/17/23 08:02 10:55 MCV MCH MCHC RDW Plt Count MPV Absolute Nucleated RBC Nucleated RBC % (auto) Anion Gap Estim Creat Clear Calc Estimated GFR POC Glucose 121 H 170 H Random Glucose Calcium Magnesium B-Natriuretic Peptide Microbiology Microbiology Results: Microbiology 02/14/23 22:11 Blood Culture - Final Blood - Central Line Staphylococcus epidermidis 02/14/23 22:08 Blood Culture - Final Blood - Central Line Staphylococcus epidermidis 02/15/23 Unknown Urine Culture - Final Urine clean catch - Urine malik top Assessment and Plan (1) (HFpEF) heart failure with preserved ejection fraction: Status: Acute Assessment and Plan: d4 72yo F with HFpEF, CKD3, CLL, chronic hypoxic due to COPD, obesity, LATONYA, HTN, mood disorder, hypothyroidism, DM2 recent admission 02/08-02/12/23 for CHF exacerbation sent to [facility] for rehab, returned for another CHF exacerbation acute/chronic hypoxic resp failure due to acute-chronic HFpEF - Cardiology consulted, continue bumetanide drip and give metolazone; monitor I/O + lytes + BNP - continue BiPAP for hypoxia + respiratory fatigue at night hypotension - resolving with stress-dose hydrocortisone + holding amlodipine - gradually taper hydrocortisone to home dose of prednisone 6 mg/d UTI [hx ESBL] - meropenem d4, ID consult pending bacteremia, not - 2 Coag-neg staph, vancomycin d/c'ed CKD3 - SCr at baseline, monitor carefully with diuresis; actually improved today suggesting some degree of cardiorenal syndrome hx HTN - amlodipine on hold due to hypotension COPD - continue Breo, tiotropium, prn nebs HLD - statin mood disorder - continue Librium, lorazepam hypothyroidism - continue LT4 CLL - continue acalabrutinib; on prednisone 6 mg/d but now on stress-dose hydrocortisone DM2 with hypoglycemia - d/c Lantus, continue janice-dose Humalog morbid obesity - diet/exercise counseling VTE ppx - LMWH dispo - eventual return to SNF for STR In my clinical judgment, the patient requires continued inpatient hospitalization for the following reasons: IV diuresis, oxygen, BiPAP Total time managing care of this patient today: 40 minutes. Quality Stroke Does the patient have a stroke diagnosis?: No VTE Prior VTE?: No VTE Risk Level:: Medical - moderate - high VTE Device Contraindication: Treatment Not Indicated VTE Drug Contraindication: N/A - Med Ordered
[2023-02-17] MEDS: Insulin Lispro 100 UNIT/ML 3 ML VIAL SUBCUT ×3 (11:47→21:18)
[2023-02-17] MEDS: metOLazone 5 MG TABLET PO (11:48)
[2023-02-17] MEDS: Hydrocortisone Sod Succ/PF 100 MG VIAL 25 MG IVPUSH ×2 (14:25→21:19)
[2023-02-17] MEDS: Bumetanide 25 MG in Container,Empty 0 ML 4 MG IVCONT (15:52)
[2023-02-17 16:00] LABS: Glucose, Whole Blood 187 mg/dL (60-115)
[2023-02-17 20:11] LABS: Glucose, Whole Blood 191 mg/dL (60-115)
[2023-02-17] MEDS: Hydroxychloroquine Sulfate 200 MG TABLET PO (21:18)
[2023-02-17] MEDS: guaiFENesin LA 600 MG TAB.ER.12H PO (21:18)
[2023-02-17] MEDS: Atorvastatin Calcium 10 MG TABLET PO (21:18)
[2023-02-17] MEDS: Enoxaparin Sodium 40 MG/0.4 ML SYRINGE SUBCUT (21:19)
[2023-02-17] MEDS: Latanoprost 0.005 % Ophth Sol 2.5 ML DROPS 1 DROP EYE-BOTH (21:20)
[2023-02-17] MEDS: Melatonin 3 MG TABLET 6 MG PO (21:22)
[2023-02-18] VITALS (9 sets, daily range): BP systolic 106–139; BP diastolic 51–71; PULSE 70–80; RESP 16–20; TEMP 35.5–36.8; O2SAT 98–100
[2023-02-18] MEDS: Hydrocortisone Sod Succ/PF 100 MG VIAL 25 MG IVPUSH (06:20)
[2023-02-18] MEDS: Levothyroxine Sodium 175 MCG TABLET PO (06:20)
[2023-02-18 06:58] LABS: Hematocrit 26.7 % (37.0-47.0); Hemoglobin 7.9 g/dl (12.0-16.0); Mean Corpuscular HGB Conc 29.6 g/dl (31.0-35.0); Mean Corpuscular Hemoglobin 25.4 pg (27.0-33.0); Mean Corpuscular Volume 85.9 fL (80.0-98.0); Platelet Count 153 X10*3/uL (160-400); Red Blood Count 3.11 X10*6/uL (4.20-5.50); Red Cell Distribution Width 16.2 % (11.0-16.0); White Blood Count 13.4 X10*3/uL (4.8-10.8)
[2023-02-18 07:03] LABS: VBG Base Excess 13.1 mmol/L; VBG HCO3 38 mmol/L (22-26); VBG pCO2 54 mmHg; VBG pH 7.45 (7.32-7.43); VBG pO2 47 mmHg
[2023-02-18 07:11] LABS: Venous Blood Gas Refer to POC result
[2023-02-18 07:28] LABS: Anion Gap 14 (12-20); Blood Urea Nitrogen 41 mg/dL (9-16); Calcium 8.2 mg/dL (8.4-10.2); Carbon Dioxide 30 mmol/L (22-29); Chloride 107 mmol/L (96-108); Creatinine Clr Calc Pharmacy 41.7; Estimated Glomerular Filt Rate 33; Glucose Random 93 mg/dL (60-115); Sodium 147 mmol/L (135-145)
[2023-02-18 07:30] LABS: B Type Natriuretic Peptide 790 pg/mL (<100)
[2023-02-18 07:31] LABS: Glucose, Whole Blood 74 mg/dL (60-115)
[2023-02-18] MEDS: levalbuterol HCL 1.25 MG/3 ML VIAL.NEB INHALE ×4 (07:54→20:44)
[2023-02-18] MEDS: Fluticasone/Vilanterol 200/25 BLST.W.DEV 1 PUFF INHALE (07:54)
[2023-02-18] MEDS: 0.9 % Sodium Chloride Flush 3 ML SYRINGE IVFLUSH (09:13)
[2023-02-18] MEDS: Hydrocortisone Sod Succ/PF 100 MG VIAL 12.5 MG IVPUSH ×2 (09:13→17:26)
[2023-02-18] MEDS: hydrOXYzine HCL 25 MG TABLET PO (09:14)
[2023-02-18] MEDS: guaiFENesin LA 600 MG TAB.ER.12H PO ×2 (09:14→20:33)
[2023-02-18] MEDS: Potassium Chloride ER 20 MEQ TAB.ER.PRT 40 MEQ PO (09:14)
[2023-02-18] MEDS: SITagliptin Phosphate 100 MG TABLET PO (09:14)
[2023-02-18] MEDS: Magnesium Oxide 400 MG TABLET 200 MG PO (09:15)
[2023-02-18] MEDS: metOLazone 5 MG TABLET PO (09:15)
[2023-02-18] MEDS: Hydroxychloroquine Sulfate 200 MG TABLET PO ×2 (09:16→20:33)
[2023-02-18] MEDS: Escitalopram Oxalate 10 MG TABLET PO (09:16)
[2023-02-18] MEDS: Nystatin Powder 15 GM BOTTLE 1 APPL TOPICAL ×2 (09:16→20:32)
[2023-02-18] MEDS: timoloL maleate 0.5 % Oph Sol 5 ML DRBTL 1 DROP EYE-RIGHT (09:17)
[2023-02-18] MEDS: Brimonidine Tartrate 0.2% Oph 5 ML BOTTLE 1 DROP EYE-RIGHT (09:17)
[2023-02-18] MEDS: Artificial Tears 15 ML DROPS 1 DROP EYE-BOTH (09:17)
[2023-02-18] MEDS: prednisoLONE Acetate 1 % Oph Susp 5 ML DRPBTL 1 DROP EYE-RIGHT (09:17)
[2023-02-18] MEDS: Dorzolamide HCl 2 % Ophth Sol 10 ML DRPBTL 1 DROP EYE-RIGHT (09:17)
[2023-02-18] MEDS: diphenhydrAMINE HCl 2 % Cream 28 GM TUBE 1 APPL TOPICAL (09:36)
--- NOTE | 2023-02-18 11:05 | HO.PM.IMPN ---
Subjective Subjective Date of Service: 02/18/23 Interval History: diuresing better, breathing better Review of Systems Review of Systems: Yes all other systems are reviewed and are negative Physical Exam Vital Signs: Vital Signs: Last Vital Signs Temp 97.0 F 02/18/23 07:34 Pulse 73 02/18/23 07:58 Resp 20 02/18/23 07:58 BP 108/71 02/18/23 07:34 Pulse Ox 98 02/18/23 07:34 O2 Del Method Oxymask 02/18/23 07:34 O2 Flow Rate 3 02/17/23 14:57 Oxygen Flow Rate 4 02/15/23 02:59 BMI result Body Mass Index 45.8 Gen: chronically ill-appearing, no resp distress HEENT: sclera anicteric, moist mucus membranes Neck: supple Lungs: diminished Heart: regular rate and rhythm, no murmurs Abd: soft, non-tender, non-distended, obese Ext: 2+ edema to legs bilaterally Skin: warm/well-perfused Neuro: alert and oriented x3, no focal findings Psych: appropriate affect Objective Data Active Medications Acetaminophen (Acetaminophen 325 Mg Tablet) 650 mg PO Q6H PRN PRN Reason: Pain, Mild (Pain Scale 1-3) Acetaminophen/Butalbital/Caffeine (Butalb/Acetamin/Caff 50/325/40 Tablet) 1 tab PO Q6H PRN PRN Reason: Headache Albuterol/Ipratropium (Albuterol/Iprat 2.5/0.5mg 3 Ml Ampul.Neb) 3 ml INHALE Q4H PRN PRN Reason: Wheezing Last Admin: 02/15/23 06:11 Dose: 3 ml Documented By: KETIH Amlodipine Besylate (Amlodipine Besylate 10 Mg Tablet) 10 mg PO DAILY [facility]; Protocol Last Admin: 02/15/23 09:22 Dose: Not Given Documented By: JORDEN Non-Admin Reason: bp 99/37- md made awre Artificial Tears (Artificial Tears 15 Ml Drops) 1 drop EYE-BOTH BID [facility] Last Admin: 02/18/23 09:17 Dose: 1 drop Documented By: MONIQUE Atorvastatin Calcium (Atorvastatin Calcium 10 Mg Tablet) 10 mg PO BEDTIME [facility] Last Admin: 02/17/23 21:18 Dose: 10 mg Documented By: ASMITA Bisacodyl (Bisacodyl 10 Mg Supp.Rect) 10 mg DE DAILY PRN PRN Reason: Constipation Brimonidine Tartrate (Brimonidine Tartrate 0.2% Oph 5 Ml Bottle) 1 drop EYE-RIGHT BID [facility] Last Admin: 02/18/23 09:17 Dose: 1 drop Documented By: MONIQUE Chlordiazepoxide HCl (Chlordiazepoxide Hcl 5 Mg Capsule) 10 mg PO BEDTIME [facility] Dextrose (Dextrose 50 % 25 Gm/50 Ml Syringe) 25 gm IVPUSH Q15M PRN; Protocol PRN Reason: per Hypoglycemia Standing Ord. Last Admin: 02/17/23 07:16 Dose: 25 gm Documented By: MONIQUE Dorzolamide HCl (Dorzolamide Hcl 2 % Ophth Mona 10 Ml Drpbtl) 1 drop EYE-RIGHT BID [facility] Last Admin: 02/18/23 09:17 Dose: 1 drop Documented By: MONIQUE Enoxaparin Sodium (Enoxaparin Sodium 40 Mg/0.4 Ml Syringe) 40 mg SUBCUT Q24H [facility] Last Admin: 02/17/23 21:19 Dose: 40 mg Documented By: ASMITA Escitalopram Oxalate (Escitalopram Oxalate 10 Mg Tablet) 10 mg PO DAILY [facility] Last Admin: 02/18/23 09:16 Dose: 10 mg Documented By: MONIQUE Fluticasone/Vilanterol (Fluticasone/Vilanterol 200/25 Blst.W.Dev) 1 puff INHALE RDAILY [facility] Last Admin: 02/18/23 07:54 Dose: 1 puff Documented By: REANNA Glucose (Glucose Gel 15 Gm Gel..Gram.) 15 gm PO Q15M PRN; Protocol PRN Reason: per Hypoglycemia Standing Ord. Guaifenesin (Guaifenesin La 600 Mg Tab.Er.12h) 600 mg PO BID [facility] Last Admin: 02/18/23 09:14 Dose: 600 mg Documented By: MONIQUE Hydrocortisone Sodium Succinate (Hydrocortisone Sod Succ/Pf 100 Mg Vial) 12.5 mg IVPUSH Q8H [facility] Last Admin: 02/18/23 09:13 Dose: 12.5 mg Documented By: MONIQUE Hydroxychloroquine Sulfate (Hydroxychloroquine Sulfate 200 Mg Tablet) 200 mg PO BID [facility] Last Admin: 02/18/23 09:16 Dose: 200 mg Documented By: MONIQUE Hydroxyzine HCl (Hydroxyzine Hcl 25 Mg Tablet) 25 mg PO DAILY [facility] Last Admin: 02/18/23 09:14 Dose: 25 mg Documented By: MONIQUE Meropenem 1 gm/ Sodium (Chloride) 100 mls @ 200 mls/hr IV Q12H [facility] Last Infusion: 02/18/23 10:12 Dose: Infused Documented By: MONIQUE Bumetanide 25 mg/ IV (Miscellaneous Supplies) 100 mls @ 4 mls/hr IVCONT .Q24H [facility] Last Admin: 02/17/23 15:52 Dose: 1 mg/hr, 4 mls/hr Documented By: KATHI Insulin Human Lispro (Insulin Lispro 100 Unit/Ml 3 Ml Vial) 0 unit SUBCUT QIDACHS [facility]; Protocol Last Admin: 02/18/23 07:28 Dose: Not Given Documented By: MONIQUE Non-Admin Reason: No Insulin Coverage Latanoprost (Latanoprost 0.005 % Ophth Mona 2.5 Ml Drops) 1 drop EYE-BOTH BEDTIME [facility] Last Admin: 02/17/23 21:20 Dose: 1 drop Documented By: ASMITA Levalbuterol HCl (Levalbuterol Hcl 1.25 Mg/3 Ml Vial.Neb) 1.25 mg INHALE RQID [facility] Last Admin: 02/18/23 07:54 Dose: 1.25 mg Documented By: REANNA Levothyroxine Sodium (Levothyroxine Sodium 175 Mcg Tablet) 175 mcg PO DAILY@0600 [facility] Last Admin: 02/18/23 06:20 Dose: 175 mcg Documented By: ASMITA Loperamide HCl (Loperamide Hcl 2 Mg Capsule) 2 mg PO Q4H PRN PRN Reason: Diarrhea Lorazepam (Lorazepam 0.5 Mg Tablet) 0.5 mg PO BID [facility] Last Admin: 02/14/23 23:10 Dose: 0.5 mg Documented By: LAM Magnesium Hydroxide (Milk Of Magnesia 30 Ml Oral.Susp) 30 ml PO DAILY PRN PRN Reason: Constipation Magnesium Oxide (Magnesium Oxide 400 Mg Tablet) 200 mg PO DAILY [facility] Last Admin: 02/18/23 09:15 Dose: 200 mg Documented By: MONIQUE Melatonin (Melatonin 3 Mg Tablet) 6 mg PO BEDTIME PRN PRN Reason: Insomnia Melatonin (Melatonin 3 Mg Tablet) 6 mg PO BEDTIME [facility] Last Admin: 02/17/23 21:22 Dose: 6 mg Documented By: ASMITA Metolazone (Metolazone 5 Mg Tablet) 5 mg PO DAILY [facility] Last Admin: 02/18/23 09:15 Dose: 5 mg Documented By: MONIQUE Pt Own ( Acalabrutinib Maleate [Calquence ( Acalabrutinib Mal)] 100 Mg Tab 100 mg PO BID [facility] Last Admin: 02/18/23 09:13 Dose: 100 mg Documented By: MONIQUE Nystatin (Nystatin Powder 15 Gm Bottle) 1 appl TOPICAL BID [facility]; Protocol Last Admin: 02/18/23 09:16 Dose: 1 appl Documented By: MONIQUE Ondansetron HCl (Ondansetron Hcl 4 Mg/2 Ml Vial) 4 mg IVPUSH Q8H PRN PRN Reason: Nausea and Vomiting Potassium Chloride (Potassium Chloride Er 20 Meq Tab.Er.Prt) 40 meq PO DAILY [facility] Last Admin: 02/18/23 09:14 Dose: 40 meq Documented By: MONIQUE Prednisolone Acetate (Prednisolone Acetate 1 % Oph Susp 5 Ml Drpbtl) 1 drop EYE-RIGHT DAILY [facility] Last Admin: 02/18/23 09:17 Dose: 1 drop Documented By: MONIQUE Prednisone (Prednisone 1 Mg Tablet) 6 mg PO DAILY [facility] Last Admin: 02/15/23 10:45 Dose: 6 mg Documented By: JORDEN Senna (Sennosides 8.6 Mg Tablet) 17.2 mg PO DAILY PRN PRN Reason: Constipation Sitagliptin Phosphate (Sitagliptin Phosphate 100 Mg Tablet) 100 mg PO DAILY [facility] Last Admin: 02/18/23 09:14 Dose: 100 mg Documented By: MONIQUE Sodium Biphosphate/Sodium Phosphate (Sodium Phosphate,[place]-Dibasic 133 Ml Enema) 118 ml [place] DAILY PRN PRN Reason: Constipation Sodium Chloride (0.9 % Sodium Chloride Flush 3 Ml Syringe) [facility] Last Admin: 02/18/23 09:13 Dose: 3 ml Documented By: MONIQUE Timolol Maleate (Timolol Maleate 0.5 % Oph Mona 5 Ml Drbtl) 1 drop EYE-RIGHT BID [facility] Last Admin: 02/18/23 09:17 Dose: 1 drop Documented By: MONIQUE Tiotropium [place] (Tiotropium [place] 2.5 Mcg Inhaler) 1 puff INHALE RDAILY [facility] Last Admin: 02/18/23 07:54 Dose: 1 puff Documented By: REANNA Zinc Acetate/Diphenhydramine (Diphenhydramine Hcl 2 % Cream 28 Gm Tube) 1 appl TOPICAL BID [facility]; Protocol Last Admin: 02/18/23 09:36 Dose: 1 appl Documented By: MONIQUE Labs 02/18/23 06:50 02/18/23 06:50 Labs: Laboratory Results - last 24 hr 02/17/23 02/17/23 02/18/23 15:55 20:07 06:50 MCV 85.9 MCH 25.4 L MCHC 29.6 L RDW 16.2 H Plt Count 153 L MPV 12.0 Absolute Nucleated RBC 0.000 Nucleated RBC % (auto) 0.0 VBG pH VBG pCO2 VBG pO2 VBG HCO3 VBG O2 Saturation VBG Base Excess Anion Gap 14 Estim Creat Clear Calc 41.7 Estimated GFR 33 POC Glucose 187 H 191 H Random Glucose 93 Calcium 8.2 L Magnesium 2.0 B-Natriuretic Peptide 790 H 02/18/23 02/18/23 06:56 07:16 MCV MCH MCHC RDW Plt Count MPV Absolute Nucleated RBC Nucleated RBC % (auto) VBG pH 7.45 H VBG pCO2 54 VBG pO2 47 VBG HCO3 38 H VBG O2 Saturation 78.0 VBG Base Excess 13.1 Anion Gap Estim Creat Clear Calc Estimated GFR POC Glucose 74 Random Glucose Calcium Magnesium B-Natriuretic Peptide Microbiology Microbiology Results: Microbiology 02/14/23 22:11 Blood Culture - Final Blood - Central Line Staphylococcus epidermidis 02/14/23 22:08 Blood Culture - Final Blood - Central Line Staphylococcus epidermidis 02/15/23 Unknown Urine Culture - Final Urine clean catch - Urine malik top Assessment and Plan (1) (HFpEF) heart failure with preserved ejection fraction: Status: Acute Assessment and Plan: d5 72yo F with HFpEF, CKD3, CLL, chronic hypoxic due to COPD, obesity, LATONYA, HTN, mood disorder, hypothyroidism, DM2 recent admission 02/08-02/12/23 for CHF exacerbation sent to [facility] for rehab, returned for another CHF exacerbation acute/chronic hypoxic resp failure due to acute-chronic HFpEF - Cardiology consulted, continue bumetanide drip and metolazone; monitor I/O + lytes + BNP - continue BiPAP for hypoxia + respiratory fatigue at night hypotension - resolvedwith stress-dose hydrocortisone + holding amlodipine - continue to taper hydrocortisone to home dose of prednisone 6 mg/d UTI- Klebsiella pneumoniae ESBL from [facility] 02/10/23 - meropenem d5, ID consult pending bacteremia, not - 2 Coag-neg staph, vancomycin d/c'ed CKD3 - SCr improving with diuresis,suggesting some degree of cardiorenal syndrome hx HTN - amlodipine on hold due to hypotension on presentation COPD - continue Breo, tiotropium, prn nebs HLD - statin mood disorder - continue Librium, lorazepam hypothyroidism - continue LT4 CLL - continue acalabrutinib; on prednisone 6 mg/d but now on stress-dose hydrocortisone DM2 with hypoglycemia - d/c'ed Lantus, continue janice-dose Humalog morbid obesity - diet/exercise counseling VTE ppx - LMWH dispo - eventual return to [facility] for STR In my clinical judgment, the patient requires continued inpatient hospitalization for the following reasons: IV diuresis, oxygen, BiPAP I updated the pt's niece/HCP Patricia by phone. Total time managing care of this patient today: 40 minutes. Quality Stroke Does the patient have a stroke diagnosis?: No VTE Prior VTE?: No VTE Risk Level:: Medical - moderate - high VTE Device Contraindication: Treatment Not Indicated VTE Drug Contraindication: N/A - Med Ordered
--- NOTE | 2023-02-18 11:06 | MHC.SL.SWA ---
Speech Pathologist Impression: Risk of aspiration, oral phase dysphagia Risk of Aspiration Due to: Medically Fragile Weak Cough Dysphasia Diet Status: UPGRADE to CHOPPED/ADVANCED solids (NDD3), continue with THIN LIQUIDS. Pills whole in puree or liquid per pt's tolerance. Liquid Consistency and Strategies for Safe Swallow: Liquid Intake Recommendation: Thin Liquid Intake Strategies: Small Sips Solid Food Consistency: Dietary Recommendations: Chopped/Advanced (NDD3) Additional Modifications to Solid Foods: UPGRADE to CHOPPED/ADVANCED (NDD3) with sauces/gravies, continue on THIN liquids, pills to be administered whole one at a time in puree or liquid per pt's tolerance. Recommend total supervision and aspiration precautions: take small bites, moisten foods with sauces/gravies, chew food well, clear oral cavity before taking more bites, alternate bites and sips, upright 90 degree position during PO intake. Oral Medication Intake: Whole with Puree Please contact the pharmacy regarding appropriate crushable or liquid drug formulations that are available whenever modified delivery is recommended. Compensatory Strategies and Precautions to be Taken for Safe Swallow: Sitting Upright (90 deg) Double Swallow Small Bites and Sips Alternate Liquids/Solids Rate of Ingestion Change Oral Check Avoid Specific Foods Supervision While Eating and Drinking for Safe Swallow: Total Supervision (1:1) Foods to Avoid: Mixed consistencies: Blend sauces or gravies into food well; Dry, sticky, or hard to chew solids. Swallowing Recommended Treatments: Compens. Strategy Educat. Recommendation for Speech: Inpatient Speech Therapy Timeline to reassess: PRN Principal Consultant Clinican/Clinical Fellow: No Supervisory Statement: I have reviewed and agree with the student/clinical fellow's documentation: N/A Speech Language Pathologist: Dory Gomez M.A., CCC-ACCOUNTS RECEIVABLE PROCESSOR
[2023-02-18 11:44] LABS: Glucose, Whole Blood 155 mg/dL (60-115)
--- NOTE | 2023-02-18 11:47 | MHC.CM.PN ---
EMR reviewed and per MD rounds, pt is not medically cleared for D/C due to IV diuresis, supplemental oxygen, and need for BiPAP. CM will continue to follow.
[2023-02-18] MEDS: Insulin Lispro 100 UNIT/ML 3 ML VIAL SUBCUT ×3 (11:51→23:30)
--- NOTE | 2023-02-18 15:07 | PM.PNCARD ---
Subjective Subjective Date of Service: 02/18/23 Interval history: Patient states that she is feeling better., still mostly in bed. Denies any active chest pain or shortness of breath. Review of Systems Review of Systems Yes all other systems are reviewed and are negative Constitutional: Reports as per HPI and Reports no additional constitutional complaints Eyes: Reports as per HPI and Denies no additional eye complaints Denies system reviewed and no additional complaints, except as documented and Reports as per HPI Cardiovascular: Reports as per HPI, Reports no additional cardiovascular complaints, Denies acrocyanosis, Denies cool extremities, Denies chest pain, Denies leg edema, Denies lightheadedness, Denies palpitations and Denies dyspnea Respiratory: Reports as per HPI, Denies no additional respiratory complaints and Denies dyspnea Gastrointestinal: Reports as per HPI and Denies no additional gastrointestinal complaints Genitourinary: Reports as per HPI Musculoskeletal: Reports no additional musculoskeletal complaints and Reports as per HPI Skin/Breast: Reports system reviewed and no additional complaints, except as docu Reports system reviewed and no additional complaints, except as documented and Reports as per HPI Psychiatric: Reports no additional psychiatric complaints and Reports as per HPI Endocrine: Reports no additional endocrine complaints, Reports as per HPI and Denies palpitations Hematologic/Lymphatic: Reports no additional hematologic/lymphatic complaints and Reports as per HPI Allergic/Immunologic: Reports no additional allergic/immunologic complaints and Reports as per HPI Physical Exam Vital Signs: Last Vital Signs Temp 97.0 F 02/18/23 11:39 Pulse 78 02/18/23 11:39 Resp 16 02/18/23 11:39 BP 137/63 02/18/23 11:39 Pulse Ox 98 02/18/23 11:39 O2 Del Method Nasal Cannula 02/18/23 11:39 O2 Flow Rate 3 02/18/23 11:39 Oxygen Flow Rate 4 02/15/23 02:59 BMI result Body Mass Index 45.8 Const General: comfortable and no acute distress Orientation/consciousness: patient oriented x3 HEENT Other: Unremarkable Head: Yes normal to inspection Neck Neck: Yes normal visual inspection Chest Chest palpation & inspection: normal inspection of the chest Resp Other: Lung sounds better than yesterday Auscultation: diminished lung sounds Cardio Palpation: normal PMI Heart sounds: S1 normal heart sound present, S2 normal heart sound present, no gallops, no murmurs and no rubs GI Palpation (GI): Soft to palpation Back/Spine/Pelvis Other: unremarkable Skin General skin exam: no rashes or lesions noted Neuro General: patient oriented x3 Extrem Other: Chronic changes without much of swelling. General: Yes normal to inspection Psych Mental Status: mental status grossly normal Objective Labs and Meds 02/18/23 06:50 02/18/23 06:50 Lab results: Laboratory Results - last 24 hr 02/17/23 02/17/23 02/18/23 15:55 20:07 06:50 WBC 13.4 H RBC 3.11 L Hgb 7.9 L Hct 26.7 L MCV 85.9 MCH 25.4 L MCHC 29.6 L RDW 16.2 H Plt Count 153 L MPV 12.0 Absolute Nucleated RBC 0.000 Nucleated RBC % (auto) 0.0 VBG pH VBG pCO2 VBG pO2 VBG HCO3 VBG O2 Saturation VBG Base Excess Sodium 147 H Potassium 4.0 Chloride 107 Carbon Dioxide 30 H Anion Gap 14 BUN 41 H Creatinine 1.53 H Estim Creat Clear Calc 41.7 Estimated GFR 33 POC Glucose 187 H 191 H Random Glucose 93 Calcium 8.2 L Magnesium 2.0 B-Natriuretic Peptide 790 H 02/18/23 02/18/23 02/18/23 06:56 07:16 11:17 WBC RBC Hgb Hct MCV MCH MCHC RDW Plt Count MPV Absolute Nucleated RBC Nucleated RBC % (auto) VBG pH 7.45 H VBG pCO2 54 VBG pO2 47 VBG HCO3 38 H VBG O2 Saturation 78.0 VBG Base Excess 13.1 Sodium Potassium Chloride Carbon Dioxide Anion Gap BUN Creatinine Estim Creat Clear Calc Estimated GFR POC Glucose 74 155 H Random Glucose Calcium Magnesium B-Natriuretic Peptide Progress Note: A&P Assessment and plan (1) Acute on chronic heart failure with preserved ejection fraction: Status: Acute (2) Acute and chronic respiratory failure with hypoxia: Status: Acute Plan Per chest x-ray, bilateral pleural effusions. Bibasilar consolidation/atelectasis. There is suggestion of pulmonary edema as well. Cardiac BNP elevated. Initially, 1667. Most recently, some 190. Troponins are within acceptable range. Hyperdynamic LVEF. Possible mitral stenosis from severe mitral annular calcification. Moderately dilated IVC with less than 50% collapse with inspiration. Overall, suspected diastolic heart failure with acute exacerbation and many comorbidities. Patient has been on Bumex drip and also got metolazone as today. Overall, volume status seems better. With medical comorbidities and recurrent admissions, prognosis guarded. Discussed with Dr. Talbert. Time Spent With Patient Time: Total time managing care of this patient today ____ minutes. Progress Note: Quality Stroke Does the patient have a stroke diagnosis?: No Procedures Date of Service Date of Service: 02/18/23
[2023-02-18 17:09] LABS: Glucose, Whole Blood 163 mg/dL (60-115)
[2023-02-18] MEDS: Bumetanide 25 MG in Container,Empty 0 ML 4 MG IVCONT (17:26)
[2023-02-18] MEDS: Atorvastatin Calcium 10 MG TABLET PO (20:32)
[2023-02-18] MEDS: Melatonin 3 MG TABLET 6 MG PO (20:33)
[2023-02-18 23:12] LABS: Glucose, Whole Blood 214 mg/dL (60-115)
[2023-02-19] VITALS (10 sets, daily range): BP systolic 109–132; BP diastolic 53–94; PULSE 71–120; RESP 16–21; TEMP 36.1–36.7; O2SAT 96–100
[2023-02-19] MEDS: Hydrocortisone Sod Succ/PF 100 MG VIAL 12.5 MG IVPUSH (02:15)
[2023-02-19] MEDS: Acetaminophen 325 MG TABLET 650 MG PO ×2 (02:16→21:33)
[2023-02-19] MEDS: Levothyroxine Sodium 175 MCG TABLET PO (05:51)
[2023-02-19 06:32] LABS: Anion Gap 13 (12-20); Blood Urea Nitrogen 45 mg/dL (9-16); Calcium 8.2 mg/dL (8.4-10.2); Carbon Dioxide 32 mmol/L (22-29); Chloride 102 mmol/L (96-108); Creatinine Clr Calc Pharmacy 41.7; Estimated Glomerular Filt Rate 33; Glucose Random 102 mg/dL (60-115); Magnesium 1.9 mg/dL (1.6-2.6); Sodium 143 mmol/L (135-145)
[2023-02-19 06:35] LABS: B Type Natriuretic Peptide 431 pg/mL (<100)
[2023-02-19 07:41] LABS: Glucose, Whole Blood 108 mg/dL (60-115)
[2023-02-19] MEDS: levalbuterol HCL 1.25 MG/3 ML VIAL.NEB INHALE ×4 (08:19→19:55)
[2023-02-19] MEDS: Fluticasone/Vilanterol 200/25 BLST.W.DEV 1 PUFF INHALE (08:19)
[2023-02-19] MEDS: Magnesium Oxide 400 MG TABLET 200 MG PO (09:04)
[2023-02-19] MEDS: Potassium Chloride ER 20 MEQ TAB.ER.PRT 40 MEQ PO (09:05)
[2023-02-19] MEDS: Hydroxychloroquine Sulfate 200 MG TABLET PO ×2 (09:12→21:11)
[2023-02-19] MEDS: hydrOXYzine HCL 25 MG TABLET PO (09:12)
[2023-02-19] MEDS: predniSONE 1 MG TABLET 6 MG PO (09:12)
[2023-02-19] MEDS: Escitalopram Oxalate 10 MG TABLET PO (09:13)
[2023-02-19] MEDS: prednisoLONE Acetate 1 % Oph Susp 5 ML DRPBTL 1 DROP EYE-RIGHT (09:13)
[2023-02-19] MEDS: Artificial Tears 15 ML DROPS 1 DROP EYE-BOTH ×2 (09:13→21:25)
[2023-02-19] MEDS: guaiFENesin LA 600 MG TAB.ER.12H PO ×2 (09:13→21:11)
[2023-02-19] MEDS: 0.9 % Sodium Chloride Flush 3 ML SYRINGE IVFLUSH ×2 (09:13→17:58)
[2023-02-19] MEDS: metOLazone 5 MG TABLET PO (09:14)
[2023-02-19] MEDS: Nystatin Powder 15 GM BOTTLE 1 APPL TOPICAL ×2 (09:14→21:27)
[2023-02-19] MEDS: Dorzolamide HCl 2 % Ophth Sol 10 ML DRPBTL 1 DROP EYE-RIGHT ×2 (09:16→21:24)
[2023-02-19] MEDS: diphenhydrAMINE HCl 2 % Cream 28 GM TUBE 1 APPL TOPICAL ×2 (09:16→21:25)
[2023-02-19] MEDS: timoloL maleate 0.5 % Oph Sol 5 ML DRBTL 1 DROP EYE-RIGHT ×2 (09:16→21:24)
[2023-02-19] MEDS: Brimonidine Tartrate 0.2% Oph 5 ML BOTTLE 1 DROP EYE-RIGHT ×2 (09:17→21:23)
[2023-02-19] MEDS: SITagliptin Phosphate 100 MG TABLET PO (09:18)
--- NOTE | 2023-02-19 10:48 | P.PNIM_ITS ---
Subjective Subjective Date of Service: 02/19/23 Interval History: less short of breath no chest pain Review of Systems Review of Systems: Yes all other systems are reviewed and are negative Physical Exam 2 Vital Signs: Vital Signs: Last Vital Signs Temp 97.7 F 02/19/23 07:06 Pulse 71 02/19/23 08:21 Resp 16 02/19/23 08:21 BP 129/54 L 02/19/23 07:06 Pulse Ox 100 02/19/23 07:06 O2 Del Method Nasal Cannula 02/19/23 07:06 O2 Flow Rate 3 02/19/23 07:06 Oxygen Flow Rate 4 02/15/23 02:59 BMI result Body Mass Index 45.8 Gen: chronically ill-appearing, no resp distress HEENT: sclera anicteric, moist mucus membranes Neck: supple Lungs: diminished Heart: regular rate and rhythm, no murmurs Abd: soft, non-tender, non-distended, obese Ext: 2+ edema to legs bilaterally Skin: warm/well-perfused Neuro: alert and oriented x3, no focal findings Psych: appropriate affect Objective Data Active Medications Acetaminophen (Acetaminophen 325 Mg Tablet) 650 mg PO Q6H PRN PRN Reason: Pain, Mild (Pain Scale 1-3) Last Admin: 02/19/23 02:16 Dose: 650 mg Documented By: ASMITA Acetaminophen/Butalbital/Caffeine (Butalb/Acetamin/Caff 50/325/40 Tablet) 1 tab PO Q6H PRN PRN Reason: Headache Albuterol/Ipratropium (Albuterol/Iprat 2.5/0.5mg 3 Ml Ampul.Neb) 3 ml INHALE Q4H PRN PRN Reason: Wheezing Last Admin: 02/15/23 06:11 Dose: 3 ml Documented By: KEITH Amlodipine Besylate (Amlodipine Besylate 10 Mg Tablet) 10 mg PO DAILY [facility]; Protocol Last Admin: 02/15/23 09:22 Dose: Not Given Documented By: JORDEN Non-Admin Reason: bp 99/37- made awre Artificial Tears (Artificial Tears 15 Ml Drops) 1 drop EYE-BOTH BID [facility] Last Admin: 02/19/23 09:13 Dose: 1 drop Documented By: RYAN Atorvastatin Calcium (Atorvastatin Calcium 10 Mg Tablet) 10 mg PO BEDTIME [facility] Last Admin: 02/18/23 20:32 Dose: 10 mg Documented By: ASMITA Bisacodyl (Bisacodyl 10 Mg Supp.Rect) 10 mg HI DAILY PRN PRN Reason: Constipation Brimonidine Tartrate (Brimonidine Tartrate 0.2% Oph 5 Ml Bottle) 1 drop EYE- RIGHT BID [facility] Last Admin: 02/19/23 09:17 Dose: 1 drop Documented By: RYAN Chlordiazepoxide HCl (Chlordiazepoxide Hcl 5 Mg Capsule) 10 mg PO BEDTIME [facility] Dextrose (Dextrose 50 % 25 Gm/50 Ml Syringe) 25 gm IVPUSH Q15M PRN; Protocol PRN Reason: per Hypoglycemia Standing Ord. Last Admin: 02/17/23 07:16 Dose: 25 gm Documented By: MONIQUE Dorzolamide HCl (Dorzolamide Hcl 2 % Ophth Mona 10 Ml Drpbtl) 1 drop EYE-RIGHT BID [facility] Last Admin: 02/19/23 09:16 Dose: 1 drop Documented By: RYAN Enoxaparin Sodium (Enoxaparin Sodium 40 Mg/0.4 Ml Syringe) 40 mg SUBCUT Q24H [facility] Last Admin: 02/18/23 22:51 Dose: Not Given Documented By: ASMITA Non-Admin Reason: Patient Refused Escitalopram Oxalate (Escitalopram Oxalate 10 Mg Tablet) 10 mg PO DAILY [facility] Last Admin: 02/19/23 09:13 Dose: 10 mg Documented By: RYAN Fluticasone/Vilanterol (Fluticasone/Vilanterol 200/25 Blst.W.Dev) 1 puff INHALE RDAILY [facility] Last Admin: 02/19/23 08:19 Dose: 1 puff Documented By: MAREK Glucose (Glucose Gel 15 Gm Gel..Gram.) 15 gm PO Q15M PRN; Protocol PRN Reason: per Hypoglycemia Standing Ord. Guaifenesin (Guaifenesin La 600 Mg Tab.Er.12h) 600 mg PO BID [facility] Last Admin: 02/19/23 09:13 Dose: 600 mg Documented By: RYAN Hydroxychloroquine Sulfate (Hydroxychloroquine Sulfate 200 Mg Tablet) 200 mg PO BID [facility] Last Admin: 02/19/23 09:12 Dose: 200 mg Documented By: RYAN Hydroxyzine HCl (Hydroxyzine Hcl 25 Mg Tablet) 25 mg PO DAILY [facility] Last Admin: 02/19/23 09:12 Dose: 25 mg Documented By: RYAN Meropenem 1 gm/ Sodium (Chloride) 100 mls @ 200 mls/hr IV Q12H [facility] Last Admin: 02/19/23 09:23 Dose: 200 mls/hr Documented By: RYAN Bumetanide 25 mg/ IV (Miscellaneous Supplies) 100 mls @ 4 mls/hr IVCONT .Q24H [facility] Last Admin: 02/18/23 17:26 Dose: 1 mg/hr, 4 mls/hr Documented By: MONIQUE Insulin Human Lispro (Insulin Lispro 100 Unit/Ml 3 Ml Vial) 0 unit SUBCUT QIDACHS [facility]; Protocol Last Admin: 02/19/23 09:17 Dose: Not Given Documented By: RYAN Non-Admin Reason: No Insulin Coverage Latanoprost (Latanoprost 0.005 % Ophth Mona 2.5 Ml Drops) 1 drop EYE-BOTH BEDTIME [facility] Last Admin: 02/18/23 21:09 Dose: Not Given Documented By: ASMITA Non-Admin Reason: Patient Refused Levalbuterol HCl (Levalbuterol Hcl 1.25 Mg/3 Ml Vial.Neb) 1.25 mg INHALE RQID [facility] Last Admin: 02/19/23 08:19 Dose: 1.25 mg Documented By: MAREK Levothyroxine Sodium (Levothyroxine Sodium 175 Mcg Tablet) 175 mcg PO DAILY@0600 [facility] Last Admin: 02/19/23 05:51 Dose: 175 mcg Documented By: ASMITA Loperamide HCl (Loperamide Hcl 2 Mg Capsule) 2 mg PO Q4H PRN PRN Reason: Diarrhea Lorazepam (Lorazepam 0.5 Mg Tablet) 0.5 mg PO BID [facility] Last Admin: 02/14/23 23:10 Dose: 0.5 mg Documented By: LAM Magnesium Hydroxide (Milk Of Magnesia 30 Ml Oral.Susp) 30 ml PO DAILY PRN PRN Reason: Constipation Magnesium Oxide (Magnesium Oxide 400 Mg Tablet) 200 mg PO DAILY [facility] Last Admin: 02/19/23 09:04 Dose: 200 mg Documented By: RYAN Comments: [id number] Melatonin (Melatonin 3 Mg Tablet) 6 mg PO BEDTIME PRN PRN Reason: Insomnia Melatonin (Melatonin 3 Mg Tablet) 6 mg PO BEDTIME [facility] Last Admin: 02/18/23 20:33 Dose: 6 mg Documented By: ASMITA Metolazone (Metolazone 5 Mg Tablet) 5 mg PO DAILY [facility] Last Admin: 02/19/23 09:14 Dose: 5 mg Documented By: RYAN Pt Own ( Acalabrutinib Maleate [Calquence ( Acalabrutinib Mal)] 100 Mg Tab 100 mg PO BID [facility] Last Admin: 02/19/23 09:02 Dose: 100 mg Documented By: RYAN Nystatin (Nystatin Powder 15 Gm Bottle) 1 appl TOPICAL BID [facility]; Protocol Last Admin: 02/19/23 09:14 Dose: 1 appl Documented By: RYAN Ondansetron HCl (Ondansetron Hcl 4 Mg/2 Ml Vial) 4 mg IVPUSH Q8H PRN PRN Reason: Nausea and Vomiting Potassium Chloride (Potassium Chloride Er 20 Meq Tab.Er.Prt) 40 meq PO DAILY [facility] Last Admin: 02/19/23 09:05 Dose: 40 meq Documented By: RYAN Prednisolone Acetate (Prednisolone Acetate 1 % Oph Susp 5 Ml Drpbtl) 1 drop EYE-RIGHT DAILY [facility] Last Admin: 02/19/23 09:13 Dose: 1 drop Documented By: RYAN Prednisone (Prednisone 1 Mg Tablet) 6 mg PO DAILY [facility] Last Admin: 02/19/23 09:12 Dose: 6 mg Documented By: RYAN Senna (Sennosides 8.6 Mg Tablet) 17.2 mg PO DAILY PRN PRN Reason: Constipation Sitagliptin Phosphate (Sitagliptin Phosphate 100 Mg Tablet) 100 mg PO DAILY [facility] Last Admin: 02/19/23 09:18 Dose: 100 mg Documented By: RYAN Sodium Biphosphate/Sodium Phosphate (Sodium Phosphate,Marin-Dibasic 133 Ml Enema) 118 ml HI DAILY PRN PRN Reason: Constipation Sodium Chloride (0.9 % Sodium Chloride Flush 3 Ml Syringe) 3 ml IVFLUSH QSHIFT [facility] Last Admin: 02/19/23 09:13 Dose: 3 ml Documented By: RYAN Timolol Maleate (Timolol Maleate 0.5 % Oph Mona 5 Ml Drbtl) 1 drop EYE-RIGHT BID [facility] Last Admin: 02/19/23 09:16 Dose: 1 drop Documented By: RYAN Tiotropium Carney (Tiotropium Carney 2.5 Mcg Inhaler) 1 puff INHALE RDAILY [facility] Last Admin: 02/19/23 08:19 Dose: 1 puff Documented By: MAREK Zinc Acetate/Diphenhydramine (Diphenhydramine Hcl 2 % Cream 28 Gm Tube) 1 appl TOPICAL BID [facility]; Protocol Last Admin: 02/19/23 09:16 Dose: 1 appl Documented By: RYAN Labs 02/18/23 06:50 02/19/23 05:49 Labs: Laboratory Results - last 24 hr 02/18/23 02/18/23 02/18/23 11:17 16:57 23:08 Anion Gap Estim Creat Clear Calc Estimated GFR POC Glucose 155 H 163 H 214 H Random Glucose Calcium Magnesium B-Natriuretic Peptide 02/19/23 02/19/23 05:49 07:23 Anion Gap 13 Estim Creat Clear Calc 41.7 Estimated GFR 33 POC Glucose 108 Random Glucose 102 Calcium 8.2 L Magnesium 1.9 B-Natriuretic Peptide 431 H Assessment and Plan (1) (HFpEF) heart failure with preserved ejection fraction: Status: Acute Assessment and Plan: d6 72yo F with HFpEF, CKD3, CLL, chronic hypoxic due to COPD, obesity, LATONYA, HTN, mood disorder, hypothyroidism, DM2 recent admission 02/08-02/12/23 for CHF exacerbation sent to [facility] for rehab, returned for another CHF exacerbation acute/chronic hypoxic resp failure due to acute-chronic HFpEF - Cardiology consulted - transition from bumetanide drip to PO bumetanide 3 mg bid - metolazone 5 mg qMF - start empagliflozin 10 mg daily - recheck lytes + BNP in AM - continue BiPAP for hypoxia + respiratory fatigue at night hypotension - resolved with stress-dose hydrocortisone + holding amlodipine - transition from IV hydrocortisone to home dose of PO prednisone 6 mg/d UTI- Klebsiella pneumoniae ESBL from [facility] 02/10/23 - meropenem [can be ertapenem upon discharge] bacteremia, not - 2 Coag-neg staph, vancomycin d/c'ed CKD3 - SCr improving with diuresis, suggesting some degree of cardiorenal syndrome hx HTN - amlodipine on hold due to hypotension on presentation COPD - continue Breo, tiotropium, prn nebs HLD - statin mood disorder - continue Librium, lorazepam hypothyroidism - continue LT4 CLL - continue acalabrutinib; on prednisone 6 mg/d but now on stress-dose hydrocortisone DM2 with hypoglycemia - d/c'ed Lantus, continue janice-dose Humalog morbid obesity - diet/exercise counseling VTE ppx - LMWH dispo - eventual return to SNF for STR In my clinical judgment, the patient requires continued inpatient hospitalization for the following reasons: IV diuresis, oxygen, BiPAP Total time managing care of this patient today: 40 minutes. Quality Stroke Does the patient have a stroke diagnosis?: No VTE Prior VTE?: No VTE Risk Level:: Medical - moderate - high VTE Device Contraindication: Treatment Not Indicated VTE Drug Contraindication: N/A - Med Ordered
[2023-02-19 11:24] LABS: Glucose, Whole Blood 159 mg/dL (60-115)
[2023-02-19] MEDS: Empagliflozin 10 MG TABLET PO (13:33)
[2023-02-19] MEDS: Insulin Lispro 100 UNIT/ML 3 ML VIAL SUBCUT ×3 (13:33→21:26)
[2023-02-19 16:24] LABS: Glucose, Whole Blood 345 mg/dL (60-115)
[2023-02-19] MEDS: Bumetanide 1 MG TABLET 3 MG PO (17:58)
[2023-02-19 20:49] LABS: Glucose, Whole Blood 329 mg/dL (60-115)
[2023-02-19] MEDS: Melatonin 3 MG TABLET 6 MG PO (21:11)
[2023-02-19] MEDS: Atorvastatin Calcium 10 MG TABLET PO (21:11)
[2023-02-19] MEDS: Enoxaparin Sodium 40 MG/0.4 ML SYRINGE SUBCUT (21:23)
[2023-02-19] MEDS: Latanoprost 0.005 % Ophth Sol 2.5 ML DROPS 1 DROP EYE-BOTH (21:24)
[2023-02-20] VITALS (11 sets, daily range): BP systolic 97–130; BP diastolic 47–78; PULSE 64–80; RESP 16–20; TEMP 35.9–36.7; O2SAT 93–100
[2023-02-20] MEDS: 0.9 % Sodium Chloride Flush 3 ML SYRINGE IVFLUSH ×3 (00:11→15:49)
[2023-02-20] MEDS: Levothyroxine Sodium 175 MCG TABLET PO (06:21)
[2023-02-20 06:37] LABS: Anion Gap 14 (12-20); Blood Urea Nitrogen 49 mg/dL (9-16); Calcium 8.6 mg/dL (8.4-10.2); Carbon Dioxide 34 mmol/L (22-29); Chloride 99 mmol/L (96-108); Creatinine Clr Calc Pharmacy 38.8; Estimated Glomerular Filt Rate 31; Glucose Random 95 mg/dL (60-115); Magnesium 1.9 mg/dL (1.6-2.6); Sodium 143 mmol/L (135-145)
[2023-02-20 06:38] LABS: Hematocrit 26.3 % (37.0-47.0); Hemoglobin 7.5 g/dl (12.0-16.0); Mean Corpuscular HGB Conc 28.5 g/dl (31.0-35.0); Mean Corpuscular Hemoglobin 24.7 pg (27.0-33.0); Mean Corpuscular Volume 86.5 fL (80.0-98.0); Platelet Count 137 X10*3/uL (160-400); Red Blood Count 3.04 X10*6/uL (4.20-5.50); Red Cell Distribution Width 15.9 % (11.0-16.0); White Blood Count 14.4 X10*3/uL (4.8-10.8)
[2023-02-20 07:00] LABS: B Type Natriuretic Peptide 482 pg/mL (<100)
[2023-02-20 07:21] LABS: Glucose, Whole Blood 98 mg/dL (60-115)
[2023-02-20] MEDS: Fluticasone/Vilanterol 200/25 BLST.W.DEV 1 PUFF INHALE (08:18)
[2023-02-20] MEDS: levalbuterol HCL 1.25 MG/3 ML VIAL.NEB INHALE ×4 (08:18→20:07)
[2023-02-20] MEDS: predniSONE 1 MG TABLET 6 MG PO (09:50)
[2023-02-20] MEDS: Acetaminophen 325 MG TABLET 650 MG PO (09:50)
[2023-02-20] MEDS: guaiFENesin LA 600 MG TAB.ER.12H PO ×2 (09:50→22:10)
[2023-02-20] MEDS: Hydroxychloroquine Sulfate 200 MG TABLET PO ×2 (09:51→22:10)
[2023-02-20] MEDS: Magnesium Oxide 400 MG TABLET 200 MG PO (09:51)
[2023-02-20] MEDS: SITagliptin Phosphate 100 MG TABLET PO (09:51)
[2023-02-20] MEDS: Escitalopram Oxalate 10 MG TABLET PO (09:51)
[2023-02-20] MEDS: hydrOXYzine HCL 25 MG TABLET PO (09:51)
[2023-02-20] MEDS: Bumetanide 1 MG TABLET 3 MG PO ×2 (09:51→17:15)
[2023-02-20] MEDS: Potassium Chloride ER 20 MEQ TAB.ER.PRT 40 MEQ PO (09:51)
[2023-02-20] MEDS: prednisoLONE Acetate 1 % Oph Susp 5 ML DRPBTL 1 DROP EYE-RIGHT (09:52)
[2023-02-20] MEDS: Empagliflozin 10 MG TABLET PO (09:52)
[2023-02-20] MEDS: timoloL maleate 0.5 % Oph Sol 5 ML DRBTL 1 DROP EYE-RIGHT ×2 (09:52→22:08)
[2023-02-20] MEDS: Brimonidine Tartrate 0.2% Oph 5 ML BOTTLE 1 DROP EYE-RIGHT ×2 (09:53→22:09)
[2023-02-20] MEDS: Dorzolamide HCl 2 % Ophth Sol 10 ML DRPBTL 1 DROP EYE-RIGHT ×2 (09:53→22:09)
[2023-02-20] MEDS: diphenhydrAMINE HCl 2 % Cream 28 GM TUBE 1 APPL TOPICAL (09:53)
[2023-02-20] MEDS: Artificial Tears 15 ML DROPS 1 DROP EYE-BOTH ×2 (09:53→22:08)
[2023-02-20] MEDS: Nystatin Powder 15 GM BOTTLE 1 APPL TOPICAL ×2 (09:55→22:22)
[2023-02-20 10:57] LABS: Glucose, Whole Blood 182 mg/dL (60-115)
--- NOTE | 2023-02-20 11:08 | HO.PM.IMPN ---
Subjective Subjective Date of Service: 02/20/23 Interval History: dyspnea improved Review of Systems Review of Systems: Yes all other systems are reviewed and are negative Physical Exam Vital Signs: Vital Signs: Last Vital Signs Temp 97.2 F 02/20/23 07:27 Pulse 64 02/20/23 08:20 Resp 16 02/20/23 08:20 BP 122/54 L 02/20/23 09:05 Pulse Ox 99 02/20/23 09:05 O2 Del Method Nasal Cannula 02/20/23 09:05 O2 Flow Rate 3 02/20/23 09:05 Oxygen Flow Rate 4 02/15/23 02:59 BMI result Body Mass Index 45.8 Gen: chronically ill-appearing, no resp distress HEENT: sclera anicteric, moist mucus membranes Neck: supple Lungs: diminished Heart: regular rate and rhythm, no murmurs Abd: soft, non-tender, non-distended, obese Ext: 2+ edema to legs bilaterally Skin: warm/well-perfused Neuro: alert and oriented x3, no focal findings Psych: appropriate affect Objective Data Active Medications Acetaminophen (Acetaminophen 325 Mg Tablet) 650 mg PO Q6H PRN PRN Reason: Pain, Mild (Pain Scale 1-3) Last Admin: 02/20/23 09:50 Dose: 650 mg Documented By: EVAN Acetaminophen/Butalbital/Caffeine (Butalb/Acetamin/Caff 50/325/40 Tablet) 1 tab PO Q6H PRN PRN Reason: Headache Albuterol/Ipratropium (Albuterol/Iprat 2.5/0.5mg 3 Ml Ampul.Neb) 3 ml INHALE Q4H PRN PRN Reason: Wheezing Last Admin: 02/15/23 06:11 Dose: 3 ml Documented By: KEITH Amlodipine Besylate (Amlodipine Besylate 10 Mg Tablet) 10 mg PO DAILY [facility]; Protocol Last Admin: 02/15/23 09:22 Dose: Not Given Documented By: JORDEN Non-Admin Reason: bp 99/37- made awre Artificial Tears (Artificial Tears 15 Ml Drops) 1 drop EYE-BOTH BID [facility] Last Admin: 02/20/23 09:53 Dose: 1 drop Documented By: EVAN Atorvastatin Calcium (Atorvastatin Calcium 10 Mg Tablet) 10 mg PO BEDTIME [facility] Last Admin: 02/19/23 21:11 Dose: 10 mg Documented By: RONNY Bisacodyl (Bisacodyl 10 Mg Supp.Rect) 10 mg MN DAILY PRN PRN Reason: Constipation Brimonidine Tartrate (Brimonidine Tartrate 0.2% Oph 5 Ml Bottle) 1 drop EYE-RIGHT BID [facility] Last Admin: 02/20/23 09:53 Dose: 1 drop Documented By: EVAN Bumetanide (Bumetanide 1 Mg Tablet) 3 mg PO BID@0800,1700 [facility]; Protocol Last Admin: 02/20/23 09:51 Dose: 3 mg Documented By: EVAN Chlordiazepoxide HCl (Chlordiazepoxide Hcl 5 Mg Capsule) 10 mg PO BEDTIME [facility] Dextrose (Dextrose 50 % 25 Gm/50 Ml Syringe) 25 gm IVPUSH Q15M PRN; Protocol PRN Reason: per Hypoglycemia Standing Ord. Last Admin: 02/17/23 07:16 Dose: 25 gm Documented By: MONIQUE Dorzolamide HCl (Dorzolamide Hcl 2 % Ophth Mona 10 Ml Drpbtl) 1 drop EYE-RIGHT BID [facility] Last Admin: 02/20/23 09:53 Dose: 1 drop Documented By: EVAN Empagliflozin (Empagliflozin 10 Mg Tablet) 10 mg PO DAILY [facility] Last Admin: 02/20/23 09:52 Dose: 10 mg Documented By: EVAN Enoxaparin Sodium (Enoxaparin Sodium 40 Mg/0.4 Ml Syringe) 40 mg SUBCUT Q24H [facility] Last Admin: 02/19/23 21:23 Dose: 40 mg Documented By: RONNY Escitalopram Oxalate (Escitalopram Oxalate 10 Mg Tablet) 10 mg PO DAILY [facility] Last Admin: 02/20/23 09:51 Dose: 10 mg Documented By: EVAN Fluticasone/Vilanterol (Fluticasone/Vilanterol 200/25 Blst.W.Dev) 1 puff INHALE RDAILY [facility] Last Admin: 02/20/23 08:18 Dose: 1 puff Documented By: MAREK Glucose (Glucose Gel 15 Gm Gel..Gram.) 15 gm PO Q15M PRN; Protocol PRN Reason: per Hypoglycemia Standing Ord. Guaifenesin (Guaifenesin La 600 Mg Tab.Er.12h) 600 mg PO BID [facility] Last Admin: 02/20/23 09:50 Dose: 600 mg Documented By: EVAN Hydroxychloroquine Sulfate (Hydroxychloroquine Sulfate 200 Mg Tablet) 200 mg PO BID [facility] Last Admin: 02/20/23 09:51 Dose: 200 mg Documented By: EVAN Hydroxyzine HCl (Hydroxyzine Hcl 25 Mg Tablet) 25 mg PO DAILY [facility] Last Admin: 02/20/23 09:51 Dose: 25 mg Documented By: EVAN Meropenem 1 gm/ Sodium (Chloride) 100 mls @ 200 mls/hr IV Q12H [facility] Last Infusion: 02/20/23 10:51 Dose: Infused Documented By: EVAN Insulin Human Lispro (Insulin Lispro 100 Unit/Ml 3 Ml Vial) 0 unit SUBCUT QIDACHS [facility]; Protocol Last Admin: 02/20/23 08:36 Dose: Not Given Documented By: EVAN Non-Admin Reason: No Insulin Coverage Latanoprost (Latanoprost 0.005 % Ophth Mona 2.5 Ml Drops) 1 drop EYE-BOTH BEDTIME [facility] Last Admin: 02/19/23 21:24 Dose: 1 drop Documented By: RONNY Levalbuterol HCl (Levalbuterol Hcl 1.25 Mg/3 Ml Vial.Neb) 1.25 mg INHALE RQID [facility] Last Admin: 02/20/23 08:18 Dose: 1.25 mg Documented By: MAREK Levothyroxine Sodium (Levothyroxine Sodium 175 Mcg Tablet) 175 mcg PO DAILY@0600 [facility] Last Admin: 02/20/23 06:21 Dose: 175 mcg Documented By: BOBBY Loperamide HCl (Loperamide Hcl 2 Mg Capsule) 2 mg PO Q4H PRN PRN Reason: Diarrhea Lorazepam (Lorazepam 0.5 Mg Tablet) 0.5 mg PO BID [facility] Last Admin: 02/14/23 23:10 Dose: 0.5 mg Documented By: LAM Magnesium Hydroxide (Milk Of Magnesia 30 Ml Oral.Susp) 30 ml PO DAILY PRN PRN Reason: Constipation Magnesium Oxide (Magnesium Oxide 400 Mg Tablet) 200 mg PO DAILY [facility] Last Admin: 02/20/23 09:51 Dose: 200 mg Documented By: EVAN Melatonin (Melatonin 3 Mg Tablet) 6 mg PO BEDTIME PRN PRN Reason: Insomnia Melatonin (Melatonin 3 Mg Tablet) 6 mg PO BEDTIME [facility] Last Admin: 02/19/23 21:11 Dose: 6 mg Documented By: RONNY Metolazone (Metolazone 5 Mg Tablet) 5 mg PO MOFR [facility] Pt Own ( Acalabrutinib Maleate [Calquence ( Acalabrutinib Mal)] 100 Mg Tab 100 mg PO BID [facility] Last Admin: 02/20/23 09:49 Dose: 100 mg Documented By: EVAN Nystatin (Nystatin Powder 15 Gm Bottle) 1 appl TOPICAL BID [facility]; Protocol Last Admin: 02/20/23 09:55 Dose: 1 appl Documented By: EVAN Ondansetron HCl (Ondansetron Hcl 4 Mg/2 Ml Vial) 4 mg IVPUSH Q8H PRN PRN Reason: Nausea and Vomiting Potassium Chloride (Potassium Chloride Er 20 Meq Tab.Er.Prt) 40 meq PO DAILY [facility] Last Admin: 02/20/23 09:51 Dose: 40 meq Documented By: EVAN Prednisolone Acetate (Prednisolone Acetate 1 % Oph Susp 5 Ml Drpbtl) 1 drop EYE-RIGHT DAILY [facility] Last Admin: 02/20/23 09:52 Dose: 1 drop Documented By: EVAN Prednisone (Prednisone 1 Mg Tablet) 6 mg PO DAILY [facility] Last Admin: 02/20/23 09:50 Dose: 6 mg Documented By: EVAN Senna (Sennosides 8.6 Mg Tablet) 17.2 mg PO DAILY PRN PRN Reason: Constipation Sitagliptin Phosphate (Sitagliptin Phosphate 100 Mg Tablet) 100 mg PO DAILY [facility] Last Admin: 02/20/23 09:51 Dose: 100 mg Documented By: EVAN Sodium Biphosphate/Sodium Phosphate (Sodium Phosphate,Owsley-Dibasic 133 Ml Enema) 118 ml MN DAILY PRN PRN Reason: Constipation Sodium Chloride (0.9 % Sodium Chloride Flush 3 Ml Syringe) 3 ml IVFLUSH QSHIFT [facility] Last Admin: 02/20/23 09:52 Dose: 3 ml Documented By: EVAN Timolol Maleate (Timolol Maleate 0.5 % Oph Mona 5 Ml Drbtl) 1 drop EYE-RIGHT BID [facility] Last Admin: 02/20/23 09:52 Dose: 1 drop Documented By: EVAN Tiotropium Dav[place] (Tiotropium [place] 2.5 Mcg Inhaler) 1 puff INHALE RDAILY [facility] Last Admin: 02/20/23 08:18 Dose: 1 puff Documented By: MAREK Zinc Acetate/Diphenhydramine (Diphenhydramine Hcl 2 % Cream 28 Gm Tube) 1 appl TOPICAL BID [facility]; Protocol Last Admin: 02/20/23 09:53 Dose: 1 appl Documented By: EVAN Labs 02/20/23 05:42 02/20/23 05:42 Labs: Laboratory Results - last 24 hr 02/19/23 02/19/23 02/19/23 11:15 16:18 20:43 MCV MCH MCHC RDW Plt Count MPV Absolute Nucleated RBC Nucleated RBC % (auto) Anion Gap Estim Creat Clear Calc Estimated GFR POC Glucose 159 H 345 H 329 H Random Glucose Calcium Magnesium B-Natriuretic Peptide 02/20/23 02/20/23 02/20/23 05:42 07:11 10:48 MCV 86.5 MCH 24.7 L MCHC 28.5 L RDW 15.9 Plt Count 137 L MPV 13.0 H Absolute Nucleated RBC 0.000 Nucleated RBC % (auto) 0.0 Anion Gap 14 Estim Creat Clear Calc 38.8 Estimated GFR 31 POC Glucose 98 182 H Random Glucose 95 Calcium 8.6 Magnesium 1.9 B-Natriuretic Peptide 482 H Assessment and Plan (1) (HFpEF) heart failure with preserved ejection fraction: Status: Acute Assessment and Plan: d7 72yo F with HFpEF, CKD3, CLL, chronic hypoxic due to COPD, obesity, LATONYA, HTN, mood disorder, hypothyroidism, DM2 recent admission 02/08-02/12/23 for CHF exacerbation sent to [facility] for rehab, returned for another CHF exacerbation acute/chronic hypoxic resp failure due to acute-chronic HFpEF - Cardiology consulted - transition from bumetanide drip to PO bumetanide 3 mg bid - metolazone 5 mg qMF - started empagliflozin 10 mg daily - recheck lytes + BNP in AM - continue BiPAP for hypoxia + respiratory fatigue at night hypotension - resolved with stress-dose hydrocortisone + holding amlodipine - transitioned from IV hydrocortisone to home dose of PO prednisone 6 mg/d UTI- Klebsiella pneumoniae ESBL from [facility] 02/10/23 - meropenem 76/14 [can be ertapenem upon discharge] bacteremia, not - 2 Coag-neg staph, vancomycin d/c'ed CKD3 - SCr improving with diuresis, suggesting some degree of cardiorenal syndrome hx HTN - amlodipine on hold due to hypotension on presentation COPD - continue Breo, tiotropium, prn nebs HLD - statin mood disorder - continue Librium, lorazepam hypothyroidism - continue LT4 CLL - continue acalabrutinib; on prednisone 6 mg/d but now on stress-dose hydrocortisone DM2 with hypoglycemia - d/c'ed Lantus, continue janice-dose Humalog morbid obesity - diet/exercise counseling VTE ppx - LMWH dispo - eventual return to SNF for STR In my clinical judgment, the patient requires continued inpatient hospitalization for the following reasons: diuresis, electrolyte monitoring, oxygen, BiPAP Total time managing care of this patient today: 40 minutes. Quality Stroke Does the patient have a stroke diagnosis?: No VTE Prior VTE?: No VTE Risk Level:: Medical - moderate - high VTE Device Contraindication: Treatment Not Indicated VTE Drug Contraindication: N/A - Med Ordered
--- NOTE | 2023-02-20 11:35 | PM.PNCARD ---
Subjective Subjective Date of Service: 02/20/23 Interval history: Patient states that she is feeling much better. Shortness of breath is improved. Review of Systems Review of Systems Yes all other systems are reviewed and are negative Constitutional: Reports as per HPI and Reports no additional constitutional complaints Eyes: Reports as per HPI and Denies no additional eye complaints Denies system reviewed and no additional complaints, except as documented and Reports as per HPI Cardiovascular: Reports as per HPI, Reports no additional cardiovascular complaints, Denies acrocyanosis, Denies cool extremities, Denies chest pain, Denies leg edema, Denies lightheadedness, Denies palpitations and Reports dyspnea Respiratory: Reports as per HPI, Denies no additional respiratory complaints and Reports dyspnea Gastrointestinal: Reports as per HPI and Denies no additional gastrointestinal complaints Genitourinary: Reports as per HPI Musculoskeletal: Reports no additional musculoskeletal complaints and Reports as per HPI Skin/Breast: Reports system reviewed and no additional complaints, except as docu Reports system reviewed and no additional complaints, except as documented and Reports as per HPI Psychiatric: Reports no additional psychiatric complaints and Reports as per HPI Endocrine: Reports no additional endocrine complaints, Reports as per HPI and Denies palpitations Hematologic/Lymphatic: Reports no additional hematologic/lymphatic complaints and Reports as per HPI Allergic/Immunologic: Reports no additional allergic/immunologic complaints and Reports as per HPI Physical Exam Vital Signs: Last Vital Signs Temp 97.0 F 02/20/23 11:18 Pulse 72 02/20/23 11:18 Resp 20 02/20/23 11:18 BP 106/53 L 02/20/23 11:18 Pulse Ox 100 02/20/23 11:18 O2 Del Method Nasal Cannula 02/20/23 11:18 O2 Flow Rate 2 02/20/23 11:18 Oxygen Flow Rate 4 02/15/23 02:59 BMI result Body Mass Index 45.8 Const General: comfortable and no acute distress Orientation/consciousness: patient oriented x3 HEENT Other: Unremarkable Head: Yes normal to inspection Neck Neck: Yes normal visual inspection Chest Chest palpation & inspection: normal inspection of the chest Resp Other: Improving lung sounds with occasional crackles. No major wheezing. Cardio Palpation: normal PMI Heart sounds: S1 normal heart sound present, S2 normal heart sound present, no gallops, no murmurs and no rubs GI Palpation (GI): Soft to palpation Back/Spine/Pelvis Other: unremarkable Skin General skin exam: no rashes or lesions noted Neuro General: patient oriented x3 Extrem Other: Chronic changes without much of swelling. General: Yes normal to inspection Psych Mental Status: mental status grossly normal Objective Labs and Meds 02/20/23 05:42 02/20/23 05:42 Lab results: Laboratory Results - last 24 hr 02/19/23 02/19/23 02/20/23 16:18 20:43 05:42 WBC 14.4 H RBC 3.04 L Hgb 7.5 L Hct 26.3 L MCV 86.5 MCH 24.7 L MCHC 28.5 L RDW 15.9 Plt Count 137 L MPV 13.0 H Absolute Nucleated RBC 0.000 Nucleated RBC % (auto) 0.0 Sodium 143 Potassium 4.0 Chloride 99 Carbon Dioxide 34 H Anion Gap 14 BUN 49 H Creatinine 1.64 H Estim Creat Clear Calc 38.8 Estimated GFR 31 POC Glucose 345 H 329 H Random Glucose 95 Calcium 8.6 Magnesium 1.9 B-Natriuretic Peptide 482 H 02/20/23 02/20/23 07:11 10:48 WBC RBC Hgb Hct MCV MCH MCHC RDW Plt Count MPV Absolute Nucleated RBC Nucleated RBC % (auto) Sodium Potassium Chloride Carbon Dioxide Anion Gap BUN Creatinine Estim Creat Clear Calc Estimated GFR POC Glucose 98 182 H Random Glucose Calcium Magnesium B-Natriuretic Peptide Progress Note: A&P Assessment and plan (1) Acute on chronic heart failure with preserved ejection fraction: Status: Acute (2) Acute and chronic respiratory failure with hypoxia: Status: Acute Plan Per chest x-ray, bilateral pleural effusions. Bibasilar consolidation/atelectasis. There is suggestion of pulmonary edema as well. Cardiac BNP elevated. Initially, 1667. Most recently, some 190. Troponins are within acceptable range. Echo- Hyperdynamic LVEF. Possible mitral stenosis from severe mitral annular calcification. Moderately dilated IVC with less than 50% collapse with inspiration. Overall, suspected diastolic heart failure with acute exacerbation and many comorbidities. She has done well on Bumex/metolazone. Volume status much improved compared to the time of admission. However, due to many comorbidities as well as recurrent hospitalizations, there is still a high risk of readmission. Guarded prognosis. Discussed with Dr. Talbert. Time Spent With Patient Time: Total time managing care of this patient today ____ minutes. Progress Note: Quality Stroke Does the patient have a stroke diagnosis?: No Procedures Date of Service Date of Service: 02/20/23
[2023-02-20] MEDS: Insulin Lispro 100 UNIT/ML 3 ML VIAL SUBCUT ×3 (13:07→22:33)
[2023-02-20 16:19] LABS: Glucose, Whole Blood 288 mg/dL (60-115)
[2023-02-20 20:36] LABS: Glucose, Whole Blood 280 mg/dL (60-115)
[2023-02-20] MEDS: Latanoprost 0.005 % Ophth Sol 2.5 ML DROPS 1 DROP EYE-BOTH (22:08)
[2023-02-20] MEDS: chlordiazePOXIDE HCl 5 MG CAPSULE 10 MG PO (22:09)
[2023-02-20] MEDS: Atorvastatin Calcium 10 MG TABLET PO (22:10)
[2023-02-20] MEDS: LORazepam 0.5 MG TABLET PO (22:10)
[2023-02-20] MEDS: Melatonin 3 MG TABLET 6 MG PO (22:10)
[2023-02-20] MEDS: Enoxaparin Sodium 40 MG/0.4 ML SYRINGE SUBCUT (22:19)
[2023-02-21] MEDS: 0.9 % Sodium Chloride Flush 3 ML SYRINGE IVFLUSH ×2 (00:28→10:33)
[2023-02-21 03:36] VITALS: PULSE 69; RESP 20; TEMP 36.1; O2SAT 94
[2023-02-21 03:45] VITALS: BP 101/43
[2023-02-21] MEDS: Levothyroxine Sodium 175 MCG TABLET PO (05:56)
[2023-02-21 07:35] LABS: VBG Base Excess 20.4 mmol/L; VBG HCO3 46 mmol/L (22-26); VBG pCO2 64 mmHg; VBG pH 7.46 (7.32-7.43); VBG pO2 47 mmHg
[2023-02-21 07:38] VITALS: BP 104/51; PULSE 61; RESP 20; TEMP 36.8; O2SAT 100
[2023-02-21 07:42] LABS: Venous Blood Gas Refer to POC result
[2023-02-21 08:02] LABS: Glucose, Whole Blood 89 mg/dL (60-115)
[2023-02-21] MEDS: levalbuterol HCL 1.25 MG/3 ML VIAL.NEB INHALE ×3 (08:02→15:11)
[2023-02-21] MEDS: Fluticasone/Vilanterol 200/25 BLST.W.DEV 1 PUFF INHALE (08:03)
[2023-02-21 08:05] VITALS: PULSE 67; RESP 18; O2SAT 98
[2023-02-21 08:19] LABS: Anion Gap 12 (12-20); Blood Urea Nitrogen 51 mg/dL (9-16); Calcium 8.1 mg/dL (8.4-10.2); Carbon Dioxide 36 mmol/L (22-29); Chloride 96 mmol/L (96-108); Creatinine Clr Calc Pharmacy 46.6; Estimated Glomerular Filt Rate 38; Glucose Random 88 mg/dL (60-115); Magnesium 1.9 mg/dL (1.6-2.6); Potassium 3.2 mmol/L (3.3-5.1); Sodium 141 mmol/L (135-145)
[2023-02-21 08:24] LABS: B Type Natriuretic Peptide 469 pg/mL (<100)
--- NOTE | 2023-02-21 10:22 | MHC.SL.SWA ---
Speech Pathologist Impression: Oral phase dysphagia Risk of Aspiration Due to: Medically Fragile Weak Cough Dysphasia Diet Status: Recommend CONTINUE on CHOPPED/ADVANCED solids (NDD3) for ease of mastication and THIN LIQUIDS. Pills whole in puree or liquid per pt's tolerance. Pt appears to be on safest, least restrictive dietary textures. Further ST intervention is no longer warranted as pt is tolerating these textures well. Please re-refer with any changes or further concern. Liquid Consistency and Strategies for Safe Swallow: Liquid Intake Recommendation: Thin Liquid Intake Strategies: Small Sips Solid Food Consistency: Dietary Recommendations: Chopped/Advanced (NDD3) Additional Modifications to Solid Foods: Recommend pt take small bites, moisten foods with sauces/gravies, chew food well, clear oral cavity before taking more bites, alternate bites and sips, upright 90 degree position during PO intake. Oral Medication Intake: Whole with Puree Please contact the pharmacy regarding appropriate crushable or liquid drug formulations that are available whenever modified delivery is recommended. Compensatory Strategies and Precautions to be Taken for Safe Swallow: Sitting Upright (90 deg) Double Swallow Small Bites and Sips Alternate Liquids/Solids Rate of Ingestion Change Oral Check Avoid Specific Foods Supervision While Eating and Drinking for Safe Swallow: Intermittent Supervision Foods to Avoid: Mixed consistencies: Blend sauces or gravies into food well; Dry, sticky, or hard to chew solids. Swallowing Recommended Treatments: Compens. Strategy Educat. Recommendation for Speech: D/C Pot Puncher Clinican/Clinical Fellow: No Supervisory Statement: I have reviewed and agree with the student/clinical fellow's documentation: N/A Speech Language Pathologist: Dory Gomez M.A., CCC-OVERNIGHT CAREGIVER
[2023-02-21] MEDS: SITagliptin Phosphate 100 MG TABLET PO (10:30)
[2023-02-21] MEDS: Potassium Chloride ER 20 MEQ TAB.ER.PRT 40 MEQ PO (10:30)
[2023-02-21] MEDS: Bumetanide 1 MG TABLET 3 MG PO (10:30)
--- NOTE | 2023-02-21 10:30 | MHC.CM.PN ---
PER HOSPITALIST ANTIC PT TO BE MEDICALLY CLEARED FOR DC BACK TO [facility] [place] AT [facility], CM SPOKE W/RESPIRATORY WHO AN HAD REACHED OUT TO PT HAS NOT BEEN USING HER HOME CPAP, CM ATTEMPTED TO CONTACT [facility], NO ANSWER AND DETAILED MESSAGE LEFT, CM WAS ABLE TO CONTACT PT'S NIECE NIA AT 10:32AM AT NUMBER ON FILE, NIA AGREEABLE TO BRING PT'S CPAP TO [facility] LATER TODAY. PT MAY NEED IV ERTAPENEM UPON DC AND CM AWAITING DETAILS FROM HOSPITALIST.
[2023-02-21] MEDS: guaiFENesin LA 600 MG TAB.ER.12H PO (10:31)
[2023-02-21] MEDS: Magnesium Oxide 400 MG TABLET 200 MG PO (10:31)
[2023-02-21] MEDS: hydrOXYzine HCL 25 MG TABLET PO (10:31)
[2023-02-21] MEDS: Hydroxychloroquine Sulfate 200 MG TABLET PO (10:31)
[2023-02-21] MEDS: LORazepam 0.5 MG TABLET PO (10:31)
[2023-02-21] MEDS: Escitalopram Oxalate 10 MG TABLET PO (10:31)
[2023-02-21] MEDS: predniSONE 1 MG TABLET 6 MG PO (10:31)
[2023-02-21] MEDS: Empagliflozin 10 MG TABLET PO (10:32)
[2023-02-21] MEDS: Artificial Tears 15 ML DROPS 1 DROP EYE-BOTH (10:37)
[2023-02-21] MEDS: timoloL maleate 0.5 % Oph Sol 5 ML DRBTL 1 DROP EYE-RIGHT (10:38)
[2023-02-21] MEDS: Brimonidine Tartrate 0.2% Oph 5 ML BOTTLE 1 DROP EYE-RIGHT (10:39)
[2023-02-21] MEDS: Nystatin Powder 15 GM BOTTLE 1 APPL TOPICAL (10:39)
[2023-02-21] MEDS: Dorzolamide HCl 2 % Ophth Sol 10 ML DRPBTL 1 DROP EYE-RIGHT (10:39)
[2023-02-21] MEDS: prednisoLONE Acetate 1 % Oph Susp 5 ML DRPBTL 1 DROP EYE-RIGHT (10:39)
[2023-02-21] MEDS: diphenhydrAMINE HCl 2 % Cream 28 GM TUBE 1 APPL TOPICAL (10:40)
[2023-02-21] MEDS: Potassium Chloride/H20 10 MEQ/100 ML PIGGYBACK 100 MEQ IV ×2 (11:37→12:56)
[2023-02-21 11:44] VITALS: BP 105/46; PULSE 71; RESP 20; TEMP 36.2; O2SAT 100
[2023-02-21 11:55] LABS: Glucose, Whole Blood 188 mg/dL (60-115)
[2023-02-21] MEDS: metOLazone 5 MG TABLET PO (12:53)
[2023-02-21] MEDS: Insulin Lispro 100 UNIT/ML 3 ML VIAL SUBCUT (12:53)
--- NOTE | 2023-02-21 13:57 | PM.DS ---
DS: Providers Provider Date of Service: 02/21/23 Date of admission: 02/14/23 21:33 Date of discharge: 02/21/23 Primary care physician: Tam Corea MD Consults: 02/14/23 21:21 Consult to Infectious Diseases Routine Consulting Provider: NORMAN BALBUENA Reason for consultation: esbl Has provider been notified: Yes 02/15/23 07:41 Consult to Wound Care Routine Reason for consultation: st 1 sac dec 02/16/23 16:05 Consult to Cardiology Routine Consulting Provider[place] [facility] Reason for consultation: HFpEF exac, starting Bmex drip DS: Diagnosis Discharge Diagnosis (1) Acute on chronic heart failure with preserved ejection fraction: Status: Acute (2) Acute and chronic respiratory failure with hypoxia: Status: Acute (3) Urinary tract infection due to ESBL Klebsiella: Status: Acute (4) Steroid dependence: Status: Acute (5) Steroid-induced adrenal suppression: Status: Acute (6) Hypotension: Status: Acute (7) Diabetes mellitus with hypoglycemia: Status: Acute (8) Acute worsening of stage 3 chronic kidney disease: Status: Acute (9) Morbid obesity: Status: Acute DS: Summary Hospital Course Hospital Course: from admission H+P 02/14/23 by hospitalist Morro Hand: This is a 72-year-old female with pertinent history of congestive heart failure with preserved ejection fraction, chronic kidney disease, CLL, chronic hypoxemic respiratory failure due to COPD, obesity, obstructive sleep apnea, essential hypertension, mood disorder, hypothyroidism, insulin-dependent diabetes mellitus who presents to the emergency department for evaluation of dyspnea. Patient states it started on the day prior to presentation. She was found to be hypoxemic at outside facility on her home O2. Does endorse orthopnea and leg swelling. No fever, chills, chest discomfort, palpitations, abdominal pain, changes in urinary or bowel habits. Of note, patient was recently admitted with acute decompensation of congestive heart failure and discharged on 02/12. In the emergency department, patient was placed on supplemental oxygen and initiated on IV diuresis. Chest x-ray with pulmonary vascular congestion, pulmonary edema and BNP found to be elevated Ms Feng is a 72yo F with HFpEF, CKD3, CLL, chronic hypoxic due to COPD, obesity, LATONYA, HTN, mood disorder, hypothyroidism, and DM2 who was recently admitted [place] [facility] [place] 02/08-02[facility]12/23 for CHF exacerbation. She was sent to [facility] for short-term rehabilitation but returned for another CHF exacerbation on 02/14/23. Hospital course by problem: acute/chronic hypoxic resp failure due to acute-chronic HFpEF - Initially requiring BiPAP support. Weaned to 3L O2 plus CPAP support at night. Cardiology consulted. Diuresed aggressively with bumetanide drip. Also started metolazone and empaglifozin. Outpatient regimen will be bumetanide 3 mg bid plus metolazone 5 mg qMF plus empagliflozin 10 mg daily. Repeat BMP, magnesium, and BNP in 1 week. Follow up with Cardiology in 2 weeks. Continue nocturnal CPAP and O2 3L at all times. hypotension - Resolved with stress-dose hydrocortisone + holding amlodipine. Transitioned from IV hydrocortisone to home dose of PO prednisone 6 mg/d. Amlodipine was discontinued. UTI- Klebsiella pneumoniae ESBL from [facility] 02/10/23 - Given 7 days of meropenem and should get 7 days of ertapenem via [facility]avez upon discharge; end date 02/28/23. LEO-CKD3 - SCr improving with diuresis, suggesting some degree of cardiorenal syndrome DM2 with hypoglycemia - Lantus discontinued. Continue correction-dose Humalog and also on empagliflozin as above. Discharged back to [facility] for short-term rehabilitation. Time Attestation Total time managing care of this patient today: 55 mintues. Discharge coordination time: Greater than 30 minutes Quality: Safe Use of Opioids Does Pt have an Active Cancer Diagnosis on the Problem List?: No Quality: Stroke Does the patient have a stroke diagnosis?: No Physical Exam Vital Signs: Vital Signs: Last Vital Signs Temp 97.2 F 02/21/23 11:44 Pulse 71 02/21/23 11:44 Resp 20 02/21/23 11:44 BP 105/46 L 02/21/23 11:44 Pulse Ox 100 02/21/23 11:44 O2 Del Method Nasal Cannula 02/21/23 11:44 O2 Flow Rate 3 02/21/23 11:44 Oxygen Flow Rate 4 02/15/23 02:59 BMI result Body Mass Index 45.8 Gen: chronically ill-appearing, no resp distress HEENT: sclera anicteric, moist mucus membranes Neck: supple Lungs: diminished Heart: regular rate and rhythm, no murmurs Abd: soft, non-tender, non-distended, obese Ext: trace edema to legs bilaterally Skin: warm/well-perfused Neuro: alert and oriented x3, no focal findings Psych: appropriate affect DS: Data Data Completed and Pending Completed studies during hospitalization [Text1]: Laboratory Results WBC 14.4 X10*3/uL (4.8-10.8) H 02/20/23 05:42 RBC 3.04 X10*6/uL (4.20-5.50) L 02/20/23 05:42 Hgb 7.5 g/dl (12.0-16.0) L 02/20/23 05:42 Hct 26.3 % (37.0-47.0) L 02/20/23 05:42 MCV 86.5 fL (80.0-98.0) 02/20/23 05:42 MCH 24.7 pg (27.0-33.0) L 02/20/23 05:42 MCHC 28.5 g/dl (31.0-35.0) L 02/20/23 05:42 RDW 15.9 % (11.0-16.0) 02/20/23 05:42 Plt Count 137 X10*3/uL (160-400) L 02/20/23 05:42 MPV 13.0 fL (9.4-12.3) H 02/20/23 05:42 Immature Gran % (Auto) 0.9 % (0.0-0.4) H 02/15/23 04:42 Neut % (Auto) 85.9 % (45-73) H 02/15/23 04:42 Lymph % (Auto) 4.4 % (20-40) L 02/15/23 04:42 Morrison % (Auto) 7.3 % (2-11) 02/15/23 04:42 Eos % (Auto) 1.1 % (0-4) 02/15/23 04:42 Baso % (Auto) 0.4 % (0-2) 02/15/23 04:42 Lymph # (Auto) 1.0 X10*3/uL (1.2-4.9) L 02/15/23 04:42 Morrison # (Auto) 1.6 X10*3/uL (0.1-1.2) H 02/15/23 04:42 Eos # (Auto) 0.2 X10*3/uL (0.0-0.4) 02/15/23 04:42 Baso # (Auto) 0.1 X10*3/uL (0.0-0.2) 02/15/23 04:42 Abs Immat Gran (auto) 0.19 X10*3/uL (0.00-0.03) H 02/15/23 04:42 Absolute Neuts (auto) 18.7 x10*3/uL (2.0-8.3) H 02/15/23 04:42 Absolute Nucleated RBC 0.000 X10*3/uL (0.0-0.012) 02/20/23 05:42 Nucleated RBC % (auto) 0.0 /100WBC (0.0-0.2) 02/20/23 05:42 Smear Tech's Comments VERIFIED 02/15/23 04:42 O2 Saturation 81.0 % 02/16/23 09:51 ABG pH at Pt Temp 7.37 (7.35-7.45) 02/16/23 09:51 ABG pCO2 at Pt Temp 46 mmHg (32-45) H 02/16/23 09:51 ABG pO2 at Pt Temp 50 mmHg (83-108) L* 02/16/23 09:51 ABG HCO3 27 mmol/L (22-26) H 02/16/23 09:51 ABG Base Excess (Actual) 2.3 mmol/L 02/16/23 09:51 VBG pH 7.46 (7.32-7.43) H 02/21/23 07:29 VBG pCO2 64 mmHg 02/21/23 07:29 VBG pO2 47 mmHg 02/21/23 07:29 VBG HCO3 46 mmol/L (22-26) H 02/21/23 07:29 VBG O2 Saturation TNP 02/21/23 07:29 VBG Base Excess 20.4 mmol/L 02/21/23 07:29 Sodium 141 mmol/L (135-145) 02/21/23 07:25 Potassium 3.2 mmol/L (3.3-5.1) L 02/21/23 07:25 Chloride 96 mmol/L (96-108) 02/21/23 07:25 Carbon Dioxide 36 mmol/L (22-29) H 02/21/23 07:25 Anion Gap 12 (12-20) 02/21/23 07:25 BUN 51 mg/dL (9-16) H 02/21/23 07:25 Creatinine 1.37 mg/dL (0.5-1.4) 02/21/23 07:25 Estim Creat Clear Calc 46.6 02/21/23 07:25 Estimated GFR 38 02/21/23 07:25 POC Glucose 188 mg/dL (60-115) H 02/21/23 11:51 Random Glucose 88 mg/dL (60-115) 02/21/23 07:25 Lactic Acid 0.6 mmol/L (0.5-2.0) 02/15/23 14:50 Calcium 8.1 mg/dL (8.4-10.2) L 02/21/23 07:25 Magnesium 1.9 mg/dL (1.6-2.6) 02/21/23 07:25 Total Bilirubin 0.2 mg/dL (0.0-1.0) 02/14/23 20:01 AST 10 U/L (5-31) 02/14/23 20:01 ALT 5 U/L (0-31) 02/14/23 20:01 Alkaline Phosphatase 57 U/L (39-117) 02/14/23 20:01 Troponin I High Sens 11.4 ng/L (<3.5-17.0) 02/14/23 20:01 B-Natriuretic Peptide 469 pg/mL (<100) H 02/21/23 07:25 Total Protein 5.4 g/dL (6.5-8.0) L 02/14/23 20:01 Albumin 2.7 g/dL (3.5-5.0) L 02/14/23 20:01 Urine Color Yellow 02/15/23 06:01 Urine Appearance Turbid 02/15/23 06:01 Urine pH 7.0 (5.0-9.0) 02/15/23 06:01 Ur Specific Lorena 1.015 (1.005-1.025) 02/15/23 06:01 Urine Protein 300 (3+) mg/dL (Neg-Trace) H 02/15/23 06:01 Urine Glucose (UA) Negative mg/dL (Negative) 02/15/23 06:01 Urine Ketones Negative mg/dL (Negative) 02/15/23 06:01 Urine Blood Moderate (2+) (Negative) H 02/15/23 06:01 Urine Nitrite Negative (Negative) 02/15/23 06:01 Ur Leukocyte Esterase Large (3+) (Negative) H 02/15/23 06:01 Urine RBC >20 /HPF (0-2) H 02/15/23 06:01 Urine WBC >50 /HPF (0-5) H 02/15/23 06:01 Ur Squamous Epith Cells >20 /HPF (0-2) 02/15/23 06:01 Urine Bacteria 4+ (None Seen) 02/15/23 06:01 Hyaline Casts 3-5 /LPF (0-2) 02/15/23 06:01 Influenza Type A (PCR) NEGATIVE (Negative) 02/14/23 19:39 Influenza Type B (PCR) NEGATIVE (Negative) 02/14/23 19:39 RSV RNA Qual (PCR) NEGATIVE (Negative) 02/14/23 19:39 SARS-CoV-2 RNA (RT-PCR) NEGATIVE (Negative) 02/14/23 19:39 Blood Type B Positive 02/16/23 08:29 Antibody Screen NEGATIVE 02/16/23 08:29 Impressions Chest X-Ray 02/20/23 08:35 IMPRESSION: Interval improvement of vascular congestion and pulmonary edema. Persistent opacity in the left lung base. Labs on day of discharge: Discharge Plan Discharge Anticipated Discharge Date/Time: 02/21/23 16:46 Patient Disposition: Xfer SNF Discharge Diagnosis: hypoxia due to CHF exacerbation ESBL UTI Referrals: Tam Corea MD [Primary Care Provider] - 1 Week NORMAN BALBUENA MD [Physician] - 1 Week Devin Callejas MD [Physician] - 2 Weeks Discharge Medications: New ertapenem 1 gram recon soln 1 g IV DAILY Qty: 7 0RF metolazone 5 mg Tablet 5 mg PO MOFR Qty: 8 0RF bumetanide 1 mg Tablet 3 mg PO BID@0800,1700 Qty: 180 0RF Protocol: Hold for SBP< HOLD for SBP < : 90 Jardiance 10 mg Tablet 10 mg PO DAILY Qty: 30 0RF Continued levothyroxine 175 mcg tablet 175 mcg PO DAILY@0600 citalopram 20 mg tablet 20 mg PO DAILY simvastatin 20 mg tablet 20 mg PO BEDTIME chlordiazepoxide HCl 10 mg capsule 10 mg PO BEDTIME insulin lispro protamin-lispro 100 unit/mL (75-25) insulin pen 0 unit subcut QIDACHS Protocol: Insulin Correction Scale Less than or equal to 110 ---- Give (units): 0 111 to 150 Give (units): 0 151 to 200 Give (units): 2 201 to 250 Give (units): 4 251 to 300 Give (units): 6 301 to 350 Give (units): 8 Greater than 350 Give (units): 10 Call MD if Blood Glucose > : 350 Januvia 100 mg tablet 100 mg PO DAILY Fleet Enema 19-7 gram/118 mL Enema 118 ml HI DAILY PRN (Reason: Constipation) guaifenesin 600 mg Tablet Extended Release 12hr 600 mg PO BID acetaminophen [Tylenol] 325 mg Tablet 650 mg PO Q4H PRN (Reason: Pain (Scale Score 4-6)) lorazepam 0.5 mg tablet 0.5 mg PO BID bisacodyl 10 mg Suppository 10 mg HI DAILY PRN (Reason: Constipation) hydroxyzine HCl 25 mg tablet 25 mg PO DAILY hydroxychloroquine 200 mg tablet 200 mg PO BID magnesium 200 mg Tablet 200 mg PO DAILY biotin 5 mg Tablet 5 mg PO DAILY riboflavin (vitamin B2) 400 mg Tablet 400 mg PO DAILY Incruse Ellipta 62.5 mcg/actuation Blister With Device 1 inh INHALATION DAILY budesonide-formoterol [Symbicort] 160-4.5 mcg/actuation Hfa Aerosol Inhaler 2 puff INHALATION BID latanoprost 0.005 % drops 1 drp ophthalmic (eye) BEDTIME Rx Instructions: 1 drop into both eyes albuterol sulfate 0.63 mg/3 mL Solution For Nebulization 0.63 mg INHALATION Q2H PRN (Reason: Shortness Of Breath Or Wheezing) sennosides [senna] 8.6 mg Tablet 17.2 mg PO DAILY PRN (Reason: Constipation) jbawswbxvv-oovscknohvxlf-igtk 50-325-40 mg tablet 1 tab PO Q6H PRN (Reason: Headache) prednisolone acetate 1 % drops,suspension 1 drp ophthalmic-Right DAILY timolol maleate 0.5 % drops 1 drp ophthalmic-Right BID coenzyme Q10 [CoQ-10] 100 mg Capsule 150 mg PO DAILY melatonin 5 mg Tablet 5 mg PO BEDTIME Simbrinza 1-0.2 % drops,suspension 1 drp ophthalmic-Right BID Artificial Tears (cmc) 1 % Drops 1 drp OPHTHALMIC (EYE) BID magnesium hydroxide [Milk of Magnesia] 400 mg/5 mL Suspension 30 ml PO DAILY PRN (Reason: Constipation) loperamide 2 mg capsule 2 mg PO Q4H PRN (Reason: Diarrhea) Calquence (acalabrutinib mal) 100 mg tablet 100 mg PO BID Acidophilus Tablet,Chewable 1 tab PO DAILY levalbuterol HCl 1.25 mg/3 mL Solution For Nebulization 1.25 mg INHALATION QID potassium chloride 20 mEq Tablet,Er Particles/Crystals 40 meq PO DAILY Qty: 30 0RF diphenhydramine-zinc acetate 2-0.1 % Cream 1 appl TOPICAL BID Rx Instructions: apply to groin/coccyx prednisone 1 mg Tablet 6 mg PO DAILY nystatin 100,000 unit/gram Powder 1 appl TOPICAL BID Rx Instructions: to abdominal folds Discontinued amlodipine 10 mg tablet 10 mg PO DAILY insulin glargine [Lantus Solostar U-100 Insulin] 100 unit/mL (3 mL) insulin pen 16 unit subcut BID Hold Instructions: Resume on 05/10/22. bumetanide 1 mg tablet 2 mg PO BID@0900,1400 Protocol: Hold for SBP< HOLD for SBP < : 90 Discharge Orders: Discharge Order (Routine); Ordered 02/21/23 Ordered By: Jud Talbert Diet: low sodium Activity on Discharge: As tolerated Stand Alone Forms: Patient Portal Discharge page Other Ambulatory Orders: Basic Metabolic Panel (Routine) Timeframe: 1 Week Facility: [facility] - Location: Laboratory Ordered By: Jud Talbert B Type Natriuretic Peptide (Routine) Timeframe: 1 Week Facility: [facility] - Location: Laboratory Ordered By: Jud Talbert Magnesium (Routine) Timeframe: 1 Week Facility: [facility] - Location: Laboratory Ordered By: Jud Talbert Care Plan Goals: prevent hospitalization cardiac health cure infection Health Concerns: hypoxia due to CHF exacerbation ESBL UTI Plan of Treatment: CHF- Use CPAP at night. Increase bumetanide to 3 mg twice daily. Take metolazone 5 mg twice weekly [Tuesday and Tuesday]. Take empagliflozin 10 mg once daily. Stop amlodipine. Low-sodium diet: less than 2000 mg of sodium daily. Weigh yourself daily and call your doctor if your weight goes up by more than 3 lb/day or 5 lb/week. Check labs [BMP, magnesium, BNP] in 1 week. Follow up with [facility] in 2 weeks. ESBL UTI Ertapenem 1 gram daily via [facility] catheter 02/22-02/28/23. Follow up with [facility] Infectious Disease in 1 week. Diabetes with hypoglycemia Start empagliflozin as above. Stop Lantus. Continue sliding-scale Humalog. Assessment: See Discharge Summary.
[2023-02-21 15:13] VITALS: PULSE 75; RESP 18; O2SAT 99
[2023-02-21 16:10] LABS: Glucose, Whole Blood 263 mg/dL (60-115)
== END 2023-02-21 16:53 | disposition skilled nursing facility (03) | DRG 291 ==
LOC: HO.ED 20:28 → HO.EDOVER 22:13 → HO.S3 02-15 17:51 → HO.IMC 02-15 19:31
PROVIDERS: Physician Assistant Medical; Admitting Provider Student in an Organized Health Care Education/Training Program; Emergency Provider Internal Medicine; PCP Internal Medicine; Visit Provider Family Medicine
DX: I13.0 Hypertensive heart and chronic kidney disease with heart failure and stage 1 through stage 4 chronic kidney disease, or unspecified chronic kidney disease (principal); I50.33 Acute on chronic diastolic (congestive) heart failure; J96.21 Acute and chronic respiratory failure with hypoxia; N39.0 Urinary tract infection, site not specified; Z68.42 Body mass index [BMI] 45.0-49.9, adult; C91.10 Chronic lymphocytic leukemia of B-cell type not having achieved remission; Z16.12 Extended spectrum beta lactamase (ESBL) resistance; L89.151 Pressure ulcer of sacral region, stage 1; E03.9 Hypothyroidism, unspecified; E78.2 Mixed hyperlipidemia; F39 Unspecified mood [affective] disorder; I95.9 Hypotension, unspecified; G47.33 Obstructive sleep apnea (adult) (pediatric); E66.01 Morbid (severe) obesity due to excess calories; B96.1 Klebsiella pneumoniae [K. pneumoniae] as the cause of diseases classified elsewhere; E11.649 Type 2 diabetes mellitus with hypoglycemia without coma; I05.0 Rheumatic mitral stenosis; N18.30 Chronic kidney disease, stage 3 unspecified; E11.22 Type 2 diabetes mellitus with diabetic chronic kidney disease; E11.65 Type 2 diabetes mellitus with hyperglycemia; Z20.822 Contact with and (suspected) exposure to COVID-19; Z87.891 Personal history of nicotine dependence; Z79.4 Long term (current) use of insulin; Z79.52 Long term (current) use of systemic steroids; Z79.890 Hormone replacement therapy; Z79.899 Other long term (current) drug therapy
CPT/HCPCS: 0241U; 36415; 36600; 71045; 80048; 80053; 81001; 82803; 82947; 83605; 83735; 83880; 84484; 85025; 85027; 86850; 86900; 86901; 87040; 87077; 87086; 87186; 87205; 92526; 92610; 93005; 94640; 94660; 94799; 97162; 99285; J0171; J1650; J1720; J1940; J2185; J3370; J3480

== ENCOUNTER → 2023-02-14 21:33 | Outpatient (BNV) | payer MEDICARE, MEDICAID, SELFPAY | PROVIDERS: Admitting Provider Student in an Organized Health Care Education/Training Program; Emergency Provider Internal Medicine; Visit Provider Student in an Organized Health Care Education/Training Program | DX: I50.30 Unspecified diastolic (congestive) heart failure (principal); J96.21 Acute and chronic respiratory failure with hypoxia | CPT/HCPCS: 99223; 99232; 99233; 99239 ==

== ENCOUNTER → 2023-02-14 21:33 | Outpatient (BNV) | payer MEDICARE, MEDICAID, SELFPAY | PROVIDERS: Admitting Provider Student in an Organized Health Care Education/Training Program; Emergency Provider Internal Medicine; PCP Internal Medicine; Visit Provider Internal Medicine | DX: I50.33 Acute on chronic diastolic (congestive) heart failure (principal); J96.21 Acute and chronic respiratory failure with hypoxia | CPT/HCPCS: 99223; 99233 ==

== ENCOUNTER 2023-03-02 13:09 | Outpatient (AMB) | payer MEDICARE, MEDICAID, SELFPAY ==
--- NOTE | 2023-03-02 13:09 | MHC.OFFVIS ---
Intake Vital Signs 03/02/23 13:30 BP 120/62 Blood Pressure Location Lt brachial Position Supine Pulse 77 Pulse Source Pulse Oximeter Temp 97.3 F Temp Source Oral Pulse Oximetry (%) 100 Oxygen Delivery Method Room Air Intake Visit Reasons: Ref.[facility],ESBL UTI Allergies oxycodone [From Percocet] Allergy (Intermediate, Verified 03/02/23 13:32) Rash lisinopril Allergy (Unknown, Verified 03/02/23 13:32) Unknown metoprolol Adverse Reaction (Severe, Verified 03/02/23 13:32) bradycardia HPI Ref.[facility],ESBL UTI HPI Details She has concern recurrence of UTI. However she has not infectious suymtom She has ESBL Klebsiella pnci in past PFSH Medical History Acute on chronic heart failure with preserved ejection fraction Acute and chronic respiratory failure with hypoxia (HFpEF) heart failure with preserved ejection fraction Morbid obesity COPD exacerbation CKD (chronic kidney disease) stage 3, GFR 30-59 ml/min Congestive heart failure LATONYA (obstructive sleep apnea) Anemia Hypoventilation associated with obesity COVID Congestive heart failure Acute respiratory failure with hypoxia Rash Heart block AV second degree Acute UTI Acute kidney injury superimposed on CKD Bradycardia Pleural effusion Acute respiratory failure Pneumonia due to COVID-19 virus Chronic lymphocytic leukemia (CLL), B-cell Dyspnea Congestive heart failure COVID-19 Hypoxia Influenza A CLL (chronic lymphocytic leukemia) Suspected deep tissue injury Klebsiella pneumonia Infection with ESBL Klebsiella oxytoca Lymphadenopathy, mediastinal Pleural effusion Congestive heart failure Essential hypertension COVID Lower extremity edema Migraine HTN (hypertension) Pseudotumor cerebri PVD (peripheral vascular disease) Obesity CKD (chronic kidney disease) Diabetes mellitus with insulin therapy Hypothyroidism HLD (hyperlipidemia) Surgical History S/P appendectomy H/O cataract extraction H/O hysterectomy for benign disease Hx of cholecystectomy Family History Mother Heart attack, Onset Age: 92 Father Heart attack, Onset Age: 66 Other Diabetes Social History Household Members: Other Household Members Other:: Assisted living facility Housing: Halfway Alcohol intake: never Comment: bedrest Patient Tobacco Use Status: Former Tobacco user Second Hand Smoke Exposure: No Advance Directives Date on File: 09/26/20 service: No Current occupational status: disabled Physical Exam Vital Signs: Last Vital Signs Temp 97.3 F 03/02/23 13:30 Pulse 77 03/02/23 13:30 BP 120/62 03/02/23 13:30 Pulse Ox 100 03/02/23 13:30 Oxygen Delivery Method Room Air 03/02/23 13:30 Const General: cooperative HEENT Head: Yes normal to inspection Face and sinus: Yes normal facial exam Mouth: Normal oral and palatal mucosa present Teeth and gingiva: dentition normal Eyes General: appearance normal, both eyes and all related structures Pupils: Equal, round and reactive pupils present Resp Effort & Inspection: normal respiratory effort Cardio Rate: regular rate Rhythm: regular rhythm GI Palpation (GI): Soft to palpation and nontender General: Yes no CVA tenderness Back/Spine/Pelvis Back: no CVA tenderness Skin General skin exam: no rashes or lesions noted Neuro General: moves all extremities Cranial nerves: Yes Equal, round and reactive pupils present Extrem General: Yes normal to inspection Psych Appearance: grossly normal Results Reviewed Results Reviewed: YES Assessment & Plan Assessment & Plan (1) Acute worsening of stage 3 chronic kidney disease: Code(s): N18.30 - Chronic kidney disease, stage 3 unspecified Plan: stable (2) Diabetes mellitus with hypoglycemia: Code(s): E11.649 - Type 2 diabetes mellitus with hypoglycemia without coma (3) Urinary tract infection due to ESBL Klebsiella: Code(s): N39.0 - Urinary tract infection, site not specified; B96.89 - Other specified bacterial agents as the cause of diseases classified elsewhere Plan: methenamin 1g po bid help prevent infed (4) Morbid obesity: Code(s): E66.01 - Morbid (severe) obesity due to excess calories Plan: SHE CAN TRIKE bAY Plan Per note Coding Level of Care Code Est Pt Level 3 (23130) Diagnoses Acute worsening of stage 3 chronic kidney disease N18.30 Diabetes mellitus with hypoglycemia E11.649 Urinary tract infection due to ESBL Klebsiella N39.0; B96.89 Morbid obesity E66.01
[2023-03-02 13:30] VITALS: BP 120/62; PULSE 77; TEMP 36.3; O2SAT 100
== END 2023-03-02 14:22 | disposition home or self-care (01) ==
PROVIDERS: PCP Internal Medicine; Visit Provider Internal Medicine
DX: N18.30 Chronic kidney disease, stage 3 unspecified (principal); E11.649 Type 2 diabetes mellitus with hypoglycemia without coma; N39.0 Urinary tract infection, site not specified; B96.89 Other specified bacterial agents as the cause of diseases classified elsewhere; E66.01 Morbid (severe) obesity due to excess calories
CPT/HCPCS: 99213

== ENCOUNTER → 2023-03-02 13:09 | Outpatient (BNVA) | payer MEDICARE, MEDICAID, SELFPAY | PROVIDERS: PCP Internal Medicine; Visit Provider Internal Medicine | DX: E11.22 Type 2 diabetes mellitus with diabetic chronic kidney disease (principal); N18.30 Chronic kidney disease, stage 3 unspecified; N39.0 Urinary tract infection, site not specified; B96.89 Other specified bacterial agents as the cause of diseases classified elsewhere; E11.649 Type 2 diabetes mellitus with hypoglycemia without coma; E66.01 Morbid (severe) obesity due to excess calories | CPT/HCPCS: 99212 ==

== ENCOUNTER 2023-03-07 07:22 | Outpatient (REF) | payer MEDICARE, MEDICAID, SELFPAY ==
[2023-03-07 07:05] LABS: Basophils Absolute Auto 0.1 X10*3/uL (0.0-0.2); Basophils Percent Auto 0.6 % (0-2); Eosinophils Absolute Auto 0.4 X10*3/uL (0.0-0.4); Eosinophils Percent Auto 3.6 % (0-4); Hematocrit 26.5 % (37.0-47.0); Hemoglobin 7.7 g/dl (12.0-16.0); Imm Gran Abs Auto 0.07 X10*3/uL (0.00-0.03); Imm Gran Pct Auto 0.6 % (0.0-0.4); Lymphocytes Absolute Auto 1.4 X10*3/uL (1.2-4.9); MANUAL DIFF FLAG SCAN; Mean Corpuscular HGB Conc 29.1 g/dl (31.0-35.0); Mean Corpuscular Hemoglobin 24.4 pg (27.0-33.0); Mean Corpuscular Volume 84.1 fL (80.0-98.0); Monocytes Absolute Auto 0.9 X10*3/uL (0.1-1.2); Monocytes Percent Auto 8.4 % (2-11); Neutrophils Percent Auto 73.8 % (45-73); PLT CLUMP 1; Red Blood Count 3.15 X10*6/uL (4.20-5.50); Red Cell Distribution Width 14.6 % (11.0-16.0); SCAN SMEAR FLAG 1
[2023-03-07 07:06] LABS: White Blood Count 10.8 X10*3/uL (4.8-10.8)
[2023-03-07 07:50] LABS: Alanine Aminotransferase < 5 U/L (0-31); Albumin Level 2.7 g/dL (3.5-5.0); Alkaline Phosphatase 71 U/L (39-117); Anion Gap 18 (12-20); Aspartate Amino Transferase 9 U/L (5-31); Bilirubin Total 0.2 mg/dL (0.0-1.0); Blood Urea Nitrogen 52 mg/dL (9-16); Calcium 9.3 mg/dL (8.4-10.2); Carbon Dioxide 31 mmol/L (22-29); Chloride 97 mmol/L (96-108); Estimated Glomerular Filt Rate 22; Glucose Random 237 mg/dL (60-115); Sodium 142 mmol/L (135-145); Total Protein 6.3 g/dL (6.5-8.0)
[2023-03-07 07:57] LABS: Mean Platelet Volume 12.9 fL (9.4-12.3); Platelet Count 190 X10*3/uL (160-400)
[2023-03-07 07:58] LABS: SLIDE REVIEW VERIFIED
== END 2023-03-07 07:23 | disposition home or self-care (01) ==
LOC: HO.MMNH2L 07:22
PROVIDERS: Visit Provider Family Medicine
DX: N18.9 Chronic kidney disease, unspecified (principal)
CPT/HCPCS: 36415; 80053; 85025

== ENCOUNTER 2023-03-14 07:14 | Outpatient (REF) | payer MEDICARE, MEDICAID, SELFPAY ==
[2023-03-14 06:30] LABS: Basophils Absolute Auto 0.1 X10*3/uL (0.0-0.2); Basophils Percent Auto 0.7 % (0-2); Eosinophils Absolute Auto 0.4 X10*3/uL (0.0-0.4); Eosinophils Percent Auto 3.2 % (0-4); Hematocrit 24.4 % (37.0-47.0); Hemoglobin 7.2 g/dl (12.0-16.0); Imm Gran Abs Auto 0.15 X10*3/uL (0.00-0.03); Imm Gran Pct Auto 1.2 % (0.0-0.4); Lymphocytes Absolute Auto 1.6 X10*3/uL (1.2-4.9); Lymphocytes Percent Auto 12.5 % (20-40); MANUAL DIFF FLAG SCAN; Mean Corpuscular HGB Conc 29.5 g/dl (31.0-35.0); Mean Corpuscular Hemoglobin 24.9 pg (27.0-33.0); Mean Corpuscular Volume 84.4 fL (80.0-98.0); Mean Platelet Volume 12.8 fL (9.4-12.3); Monocytes Absolute Auto 1.7 X10*3/uL (0.1-1.2); Monocytes Percent Auto 13.1 % (2-11); Neutrophils Percent Auto 69.3 % (45-73); Platelet Count 242 X10*3/uL (160-400); Red Blood Count 2.89 X10*6/uL (4.20-5.50); Red Cell Distribution Width 14.1 % (11.0-16.0); SCAN SMEAR FLAG 1
[2023-03-14 06:48] LABS: Anion Gap 16 (12-20); Blood Urea Nitrogen 60 mg/dL (9-16); Calcium 8.2 mg/dL (8.4-10.2); Carbon Dioxide 26 mmol/L (22-29); Chloride 98 mmol/L (96-108); Estimated Glomerular Filt Rate 14; Glucose Random 124 mg/dL (60-115); Potassium 4.4 mmol/L (3.3-5.1); Sodium 136 mmol/L (135-145)
[2023-03-14 07:23] LABS: SLIDE REVIEW VERIFIED
== END 2023-03-14 07:15 | disposition home or self-care (01) ==
LOC: HO.MMNH2L 07:14
PROVIDERS: Visit Provider Family Medicine
DX: N18.9 Chronic kidney disease, unspecified (principal)
CPT/HCPCS: 36415; 80048; 85025

== ENCOUNTER 2023-03-21 06:26 | Outpatient (REF) | payer MEDICARE, MEDICAID, SELFPAY ==
[2023-03-21 06:05] LABS: MANUAL DIFF FLAG NO
[2023-03-21 06:50] LABS: Basophils Absolute Auto 0.1 X10*3/uL (0.0-0.2); Basophils Percent Auto 0.5 % (0-2); Eosinophils Percent Auto 0.1 % (0-4); Hematocrit 25.1 % (37.0-47.0); Hemoglobin 7.4 g/dl (12.0-16.0); Imm Gran Abs Auto 0.24 X10*3/uL (0.00-0.03); Imm Gran Pct Auto 1.7 % (0.0-0.4); Lymphocytes Absolute Auto 1.4 X10*3/uL (1.2-4.9); Lymphocytes Percent Auto 9.8 % (20-40); Mean Corpuscular HGB Conc 29.5 g/dl (31.0-35.0); Mean Corpuscular Hemoglobin 24.7 pg (27.0-33.0); Mean Corpuscular Volume 83.7 fL (80.0-98.0); Mean Platelet Volume 12.3 fL (9.4-12.3); Monocytes Absolute Auto 1.3 X10*3/uL (0.1-1.2); Monocytes Percent Auto 9.3 % (2-11); Neutrophils Percent Auto 78.6 % (45-73); Platelet Count 233 X10*3/uL (160-400); Red Cell Distribution Width 14.3 % (11.0-16.0)
[2023-03-21 07:00] LABS: Alanine Aminotransferase 5 U/L (0-31); Albumin Level 2.6 g/dL (3.5-5.0); Alkaline Phosphatase 66 U/L (39-117); Anion Gap 14 (12-20); Aspartate Amino Transferase 7 U/L (5-31); Bilirubin Total 0.1 mg/dL (0.0-1.0); Blood Urea Nitrogen 38 mg/dL (9-16); Carbon Dioxide 25 mmol/L (22-29); Chloride 101 mmol/L (96-108); Estimated Glomerular Filt Rate 26; Glucose Random 208 mg/dL (60-115); Sodium 136 mmol/L (135-145); Total Protein 5.8 g/dL (6.5-8.0)
== END 2023-03-21 06:27 | disposition home or self-care (01) ==
LOC: HO.MMNH2L 06:26
PROVIDERS: Visit Provider Family Medicine
DX: N18.9 Chronic kidney disease, unspecified (principal)
CPT/HCPCS: 36415; 80053; 85025

== ENCOUNTER → 2023-03-22 14:23 | Outpatient (BNVA) | payer MEDICARE, MEDICAID, SELFPAY | PROVIDERS: PCP Internal Medicine; Visit Provider Nurse Practitioner | DX: R00.1 Bradycardia, unspecified (principal); I11.0 Hypertensive heart disease with heart failure; I50.9 Heart failure, unspecified | CPT/HCPCS: 99212 ==

== ENCOUNTER 2023-03-22 14:24 | Outpatient (AMB) | payer MEDICARE, MEDICAID, SELFPAY ==
[2023-03-22 14:24] VITALS: BP 100/58; PULSE 62
--- NOTE | 2023-03-22 14:24 | MHC.OFFVIS ---
Intake Vital Signs 03/22/23 14:24 Height 5 ft 3 in BP 100/58 L Pulse 62 Intake Visit Reasons: [facility] follow up chest pain/COPD/HX CHF (NS) Allergies oxycodone [From Percocet] Allergy (Intermediate, Verified 03/22/23 14:40) Rash lisinopril Allergy (Unknown, Verified 03/22/23 14:40) Unknown metoprolol Adverse Reaction (Severe, Verified 03/22/23 14:40) bradycardia Medication List - Last Reconciled 03/22/23 by Monica Grimaldo NP acalabrutinib maleate (Calquence (acalabrutinib maleate)) 100 mg PO BID albuterol sulfate 0.63 mg inhalation Q2H PRN biotin 5 mg PO DAILY bisacodyl 10 mg MN DAILY PRN brinzolamide-brimonidine 1-0.2 % (Simbrinza) 1 drp ophthalmic-Right BID budesonide-formoterol 160-4.5 mcg/actuation (Symbicort) 2 puffs inhalation BID bumetanide 3 mg See Protocol PO BID@0800,1700 [id number]-xpiagtrejaubj-zrbd 50-325-40 mg 1 tab PO Q6H PRN carboxymethylcellulose sodium 1% (Artificial Tears (carboxymethylcellulose)) 1 drp ophthalmic (eye) BID chlordiazepoxide HCl 10 mg PO BEDTIME citalopram 20 mg PO DAILY coenzyme Q10 (CoQ-10) 150 mg PO DAILY empagliflozin (Jardiance) 10 mg PO DAILY guaifenesin ER 600 mg PO BID hydroxychloroquine 200 mg PO BID hydroxyzine HCl 25 mg PO DAILY insulin lispro protamin-lispro 100 unit/mL (75-25) 0 units See Protocol subcut QIDACHS Lactobacillus acidophilus (Acidophilus chewable tablet) 1 tab PO DAILY latanoprost 0.005% 1 drp ophthalmic (eye) BEDTIME levalbuterol HCl 1.25 mg inhalation QID levothyroxine 175 mcg PO DAILY@0600 lorazepam 0.5 mg PO BID magnesium 200 mg PO DAILY melatonin 5 mg PO BEDTIME potassium chloride ER 40 mEq (2 x 20 mEq) PO DAILY prednisolone acetate 1% 1 drp ophthalmic-Right DAILY prednisone 6 mg PO DAILY riboflavin (vitamin B2) 400 mg PO DAILY simvastatin 20 mg PO BEDTIME sitagliptin phosphate (Januvia) 100 mg PO DAILY sodium phosphates 19-7 gram/118 mL (Fleet Enema) 118 mL MN DAILY PRN timolol maleate 0.5% 1 drp ophthalmic-Right BID umeclidinium 62.5 mcg/actuation (Incruse Ellipta) 1 inh inhalation DAILY HPI HPI Comments History of Present Illness Details 73-year-old female with many chronic illnesses presents for a follow-up after multiple hospital stays with her niece/HCP Patricia. They both report she has been doing well since her last hospital stay. She is currently in a facility with the plans to go home soon. The nurses currently help her with her care and medications and she will have help at home to ensure she is doing well and taking medications appropriately. She is bed-bound and on oxygen. In the recent months she has improved her diet and lowered her salt intake greatly and has felt better since. She is currently having weekly labs at the facility. [facility] Medical History (Updated 03/23/23 @ 08:19 by Monica Grimaldo NP) Congestive heart failure Essential hypertension Acute on chronic heart failure with preserved ejection fraction Acute and chronic respiratory failure with hypoxia (HFpEF) heart failure with preserved ejection fraction Morbid obesity COPD exacerbation CKD (chronic kidney disease) stage 3, GFR 30-59 ml/min LATONYA (obstructive sleep apnea) Anemia Hypoventilation associated with obesity COVID Congestive heart failure Acute respiratory failure with hypoxia Rash Heart block AV second degree Acute UTI Acute kidney injury superimposed on CKD Bradycardia Pleural effusion Acute respiratory failure Pneumonia due to COVID-19 virus Chronic lymphocytic leukemia (CLL), B-cell Dyspnea Congestive heart failure COVID-19 Hypoxia Influenza A CLL (chronic lymphocytic leukemia) Suspected deep tissue injury Klebsiella pneumonia Infection with ESBL Klebsiella oxytoca Lymphadenopathy, mediastinal Pleural effusion Congestive heart failure COVID Lower extremity edema Migraine HTN (hypertension) Pseudotumor cerebri PVD (peripheral vascular disease) Obesity CKD (chronic kidney disease) Diabetes mellitus with insulin therapy Hypothyroidism HLD (hyperlipidemia) Surgical History S/P appendectomy H/O cataract extraction H/O hysterectomy for benign disease Hx of cholecystectomy Family History Mother Heart attack, Onset Age: 92 Father Heart attack, Onset Age: 66 Other Diabetes Social History Household Members: Other Household Members Other:: Assisted living facility Housing: Prison Alcohol intake: never Comment: bedrest Patient Tobacco Use Status: Former Tobacco user Second Hand Smoke Exposure: No Advance Directives Date on File: 09/26/20 service: No Current occupational status: disabled Review of Systems Const Denies chills, Denies fatigue, Denies fever(s), Denies frequent falls, Denies weakness, Denies weight gain and Denies weight loss ENT Denies dizziness Card Denies chest pain, Denies leg edema, Denies lightheadedness, Denies palpitations, Denies dyspnea, Denies dyspnea on exertion, Denies orthopnea and Denies slow heart rate Resp Denies cough, Denies dyspnea and Denies dyspnea on exertion GI Denies bloating and Denies change in bowel habits Musc Denies muscle weakness, Denies numbness and Denies tingling Neuro Denies dizziness, Denies frequent falls, Denies numbness, Denies tingling and Denies weakness Endo Denies fatigue and Denies palpitations Physical Exam Vital Signs: Last Vital Signs Pulse 62 03/22/23 14:24 BP 100/58 L 03/22/23 14:24 Const General: healthy appearing, comfortable and no acute distress Orientation/consciousness: patient oriented x3 Limitations: physical limitations (Bed bound / On stretcher ) HEENT Head: Yes normal to inspection Eyes General: appearance normal, both eyes and all related structures Neck Neck: Yes normal visual inspection Chest Chest palpation & inspection: normal inspection of the chest Resp Effort & Inspection: normal respiratory effort Auscultation: clear to auscultation bilaterally Cardio Jugular venous distension: no JVD Palpation: normal PMI Rate: regular rate Rhythm: regular rhythm Heart sounds: S1 normal heart sound present, S2 normal heart sound present, no click, no gallops, no murmurs and no rubs GI Inspection: Yes normal to inspection Palpation (GI): Soft to palpation Skin General skin exam: no rashes or lesions noted Neuro General: patient oriented x3 Extrem General: Yes normal to inspection Psych Appearance: grossly normal Assessment & Plan Assessment & Plan (1) Sinus bradycardia: Code(s): R00.1 - Bradycardia, unspecified (2) Congestive heart failure: Code(s): I50.9 - Heart failure, unspecified Qualifiers: Heart failure chronicity: acute (3) Essential hypertension: Code(s): I10 - Essential (primary) hypertension Plan Vital signs are within goal today. Continue heart healthy/low salt diet. Continue with labs through facility. Once she goes home the neice will inform us so they will have scripts for at home. Report at signs or symptoms of fluid overload. ED care if needed. Coding Level of Care Code Est Pt Level 3 (69980) Diagnoses Sinus bradycardia R00.1 Congestive heart failure I50.9 Heart failure chronicity: acute Essential hypertension I10
== END 2023-03-22 15:09 | disposition home or self-care (01) ==
PROVIDERS: PCP Internal Medicine; Visit Provider Nurse Practitioner
DX: R00.1 Bradycardia, unspecified (principal); I50.9 Heart failure, unspecified; I10 Essential (primary) hypertension
CPT/HCPCS: 99213

== ENCOUNTER 2023-03-29 06:32 | Outpatient (REF) | payer MEDICARE, MEDICAID, SELFPAY ==
[2023-03-29 06:18] LABS: MANUAL DIFF FLAG NO
[2023-03-29 06:50] LABS: Basophils Absolute Auto 0.1 X10*3/uL (0.0-0.2); Basophils Percent Auto 0.5 % (0-2); Eosinophils Absolute Auto 0.4 X10*3/uL (0.0-0.4); Eosinophils Percent Auto 2.9 % (0-4); Hematocrit 25.5 % (37.0-47.0); Hemoglobin 7.4 g/dl (12.0-16.0); Imm Gran Abs Auto 0.19 X10*3/uL (0.00-0.03); Imm Gran Pct Auto 1.5 % (0.0-0.4); Lymphocytes Absolute Auto 1.9 X10*3/uL (1.2-4.9); Lymphocytes Percent Auto 14.8 % (20-40); Mean Corpuscular Hemoglobin 24.1 pg (27.0-33.0); Mean Corpuscular Volume 83.1 fL (80.0-98.0); Mean Platelet Volume 12.5 fL (9.4-12.3); Monocytes Absolute Auto 1.4 X10*3/uL (0.1-1.2); Neutrophils Percent Auto 69.3 % (45-73); Platelet Count 205 X10*3/uL (160-400); Red Blood Count 3.07 X10*6/uL (4.20-5.50); Red Cell Distribution Width 14.4 % (11.0-16.0); White Blood Count 13.1 X10*3/uL (4.8-10.8)
[2023-03-29 07:22] LABS: Alanine Aminotransferase 10 U/L (0-31); Albumin Level 2.7 g/dL (3.5-5.0); Alkaline Phosphatase 61 U/L (39-117); Anion Gap 13 (12-20); Aspartate Amino Transferase 11 U/L (5-31); Bilirubin Total 0.1 mg/dL (0.0-1.0); Blood Urea Nitrogen 30 mg/dL (9-16); Calcium 8.4 mg/dL (8.4-10.2); Carbon Dioxide 26 mmol/L (22-29); Chloride 102 mmol/L (96-108); Estimated Glomerular Filt Rate 33; Glucose Random 129 mg/dL (60-115); Potassium 4.4 mmol/L (3.3-5.1); Sodium 137 mmol/L (135-145); Total Protein 5.7 g/dL (6.5-8.0)
== END 2023-03-29 06:33 | disposition home or self-care (01) ==
LOC: HO.MMNH2L 06:32
PROVIDERS: Visit Provider Family Medicine
DX: N18.9 Chronic kidney disease, unspecified (principal)
CPT/HCPCS: 36415; 80053; 85025

== ENCOUNTER 2023-04-05 06:24 | Outpatient (REF) | payer MEDICARE, MEDICAID, SELFPAY ==
[2023-04-05 06:13] LABS: MANUAL DIFF FLAG NO
[2023-04-05 06:37] LABS: Basophils Absolute Auto 0.1 X10*3/uL (0.0-0.2); Basophils Percent Auto 0.7 % (0-2); Eosinophils Absolute Auto 0.5 X10*3/uL (0.0-0.4); Eosinophils Percent Auto 4.9 % (0-4); Hematocrit 25.5 % (37.0-47.0); Hemoglobin 7.5 g/dl (12.0-16.0); Imm Gran Abs Auto 0.09 X10*3/uL (0.00-0.03); Lymphocytes Absolute Auto 1.5 X10*3/uL (1.2-4.9); Lymphocytes Percent Auto 15.8 % (20-40); Mean Corpuscular HGB Conc 29.4 g/dl (31.0-35.0); Mean Corpuscular Hemoglobin 24.4 pg (27.0-33.0); Mean Corpuscular Volume 82.8 fL (80.0-98.0); Mean Platelet Volume 11.4 fL (9.4-12.3); Monocytes Absolute Auto 1.4 X10*3/uL (0.1-1.2); Monocytes Percent Auto 15.2 % (2-11); Neutrophils Absolute Auto 5.8 x10*3/uL (2.0-8.3); Neutrophils Percent Auto 62.4 % (45-73); Platelet Count 252 X10*3/uL (160-400); Red Blood Count 3.08 X10*6/uL (4.20-5.50); Red Cell Distribution Width 14.9 % (11.0-16.0); White Blood Count 9.4 X10*3/uL (4.8-10.8)
[2023-04-05 06:57] LABS: Alanine Aminotransferase 6 U/L (0-31); Albumin Level 2.5 g/dL (3.5-5.0); Alkaline Phosphatase 59 U/L (39-117); Anion Gap 12 (12-20); Aspartate Amino Transferase 10 U/L (5-31); Bilirubin Total 0.1 mg/dL (0.0-1.0); Blood Urea Nitrogen 29 mg/dL (9-16); Calcium 8.1 mg/dL (8.4-10.2); Carbon Dioxide 28 mmol/L (22-29); Chloride 100 mmol/L (96-108); Estimated Glomerular Filt Rate 33; Glucose Random 168 mg/dL (60-115); Potassium 4.3 mmol/L (3.3-5.1); Sodium 136 mmol/L (135-145); Total Protein 5.4 g/dL (6.5-8.0)
== END 2023-04-05 06:25 | disposition home or self-care (01) ==
LOC: HO.MMNH2L 06:24
PROVIDERS: Visit Provider Family Medicine
DX: N18.9 Chronic kidney disease, unspecified (principal)
CPT/HCPCS: 36415; 80053; 85025

== ENCOUNTER 2023-04-11 10:15 | Outpatient (REF) | payer MEDICARE, MEDICAID, SELFPAY | END 2023-04-11 10:16 | disposition home or self-care (01) | LOC: HO.MMNH2L 10:15 | PROVIDERS: Visit Provider Family Medicine | DX: N18.9 Chronic kidney disease, unspecified (principal) | CPT/HCPCS: 36415; 80053; 85025 ==

== ENCOUNTER 2023-04-13 14:40 | Outpatient (RCR) | payer MEDICARE, OTHER, MEDICAID, SELFPAY ==
--- NOTE | 2022-01-22 08:30 | HO.HEMONCSCH ---
Called, no answer. Pt no showed to consultation apt. N/S letter mailed
--- OUTSIDE RECORDS SUMMARY | 2022-02-15 13:42 | XMS_ITS ---
[...] Lf/0.5 mL Completed ? 02/06/2020 intramuscular syringe [id number]-aejorayfbbywr-[id number] 50 mg-325 mg-40 mg tablet Acti ve [...] Cataract Surgery Information not avai lable 04/04/1990 [employer] C[employer]ODIAN Shunt Placement Information not avai lable ? Tubal Ligation Information not avai lable ? Cholecystectomy Information not avai lable ? Appendectomy Information not avai lable ? Total Hysterectomy Information not avai lable Results Lab Results Date Name Specimen Result Interpretation Description Value Range Status Address ? 04/21/2021 HbA1C (Hemoglobin ? No observation ? ? ? [facility] a1C), Blood recorded. Ce nter (Medical Records): [address] [facility] 05/28/2020 CBC W/ Auto Diff ? No observation ? ? ? [facility] recorded. [facility] (Medical Records): [address] [facility] 05/28/2020 HbA1C (Hemoglobin ? No observation ? ? ? [facility] a1C), Blood recorded. nt (Medical Records): [address], [place] 05/28/2020 TSH + Free T4, ? No observation ? ? ? [facility] Serum recorded. [place] (Medical Records): [address], [place] 05/28/2020 CMP, Serum or ? No observation ? ? ? [facility] Plasma recorded. [place] (Medical Records): [address], [place] 01/22/2020 LDL, Serum ? Ldl 90 ? ? 01/22/2020 HbA1C (Hemoglobin ? A1C 7.1 ? ? a1C), Blood 11/16/2019 LDL, Serum ? Ldl 109 ? ? 11/16/2019 HbA1C (Hemoglobin ? A1C 9.1 ? ? a1C), Blood 11/12/2019 HbA1C (Hemoglobin ? No observation ? ? ? [facility] a1C), Blood recorded. [facility] Laboratory : [address], [place] 11/12/2019 TSH + Free T4, ? No observation ? ? ? [facility] Serum recorded. [place] [facility] : [address], [place] 11/12/2019 Lipid Panel, Blood ? No observation ? ? ? [facility] recorded. [place] [facility] : [address], [place] 11/12/2019 CMP, Serum or ? No observation ? ? ? [facility] Plasma recorded. [place] Laboratory : [address], [place] 02/27/2019 Fecal Occult ? No observation ? ? ? Blood, Stool recorded. 01/26/2019 Microalbumin, ? No observation ? ? ? [facility] Urine recorded. [place] Laboratory : [address], [place] 01/26/2019 TSH + Free T4, ? No observation ? ? ? [facility] Serum recorded. [place] Laboratory : [address], [place] 01/26/2019 Lipid Panel, Serum ? No observation ? ? ? [facility] recorded. [place] [facility] : [address], [place] 01/26/2019 Glycohemoglobin, ? No observation ? ? ? [facility] Total, Blood recorded. [facility] Laboratory : [address], [place] 01/26/2019 CMP, Serum or ? No observation ? ? ? [facility] Plasma recorded. [facility] Laboratory : [address], [place] 01/26/2019 LDL, Serum ? Ldl 88 ? ? 12/10/2017 LDL, Serum ? Ldl 90 ? ? 12/10/2017 HbA1C (Hemoglobin ? A1C 7.7 ? ? a1C), Blood 11/04/2017 CBC W/ Diff ? No observation ? ? ? [facility] recorded. [facility] Laboratory : [address], [place] 09/19/2017 Cbc ? No observation ? ? ? [facility] recorded. [facility] Laboratory : [address], [place] 09/19/2017 CMP, Serum or ? No observation ? ? ? [facility] Plasma recorded. [facility] Laboratory : [address], [place] 08/19/2017 Microalbumin/creat ? No observation ? ? ? [facility] inine, Ratio recorded. C enter Panel, Urine Labo ratory: [address], [place] 08/19/2017 Cbc ? No observation ? ? ? [facility] recorded. [facility] Laboratory : [address], [place] 08/19/2017 Glycohemoglobin, ? No observation ? ? ? [facility] Total, Blood recorded. C enter Laboratory : [address], [place] 08/19/2017 Lipid Panel, Serum ? No observation ? ? ? [facility] recorded. [facility] Laboratory : [address], [place] 08/19/2017 CMP, Serum or ? No observation ? ? ? [facility] Plasma recorded. [facility] Laboratory : [address], [place] 05/13/2017 HbA1C (Hemoglobin ? A1C 10.7 ? ? a1C), Blood Past Encounters 10/26/2021 Hypoglycemia Renae Russell PA: [address] [place] [address], Ph. 04/29/2021 Diabetes Mellitus; Morbid Obesity; Depre ssive Disorder; Stasis Dermatitis and Venous Ulcer of Lower Extremity Due to Chronic Peripheral Venous Hypertension; Insulin Treated Type 2 Diabetes Mellitus; Randy janet without Aura; Normal Pressure Hydr ocephalus; Chronic Kidney Disease Stage 2; Pre-existing Type 2 Diabetes Mellitus; Hypothyroidism; Renewal of Prescription Tam Corea, DO: [address] [facility],[place] [address], Ph. 09/29/2020 Pre-surgery Evaluation Tam Corea DO[facility] [address] [facility] [place] [address], Ph. 08/29/2020 Glaucoma; Insulin Treated Type 2 Diabete s Mellitus; Pre-surgery Evaluation; Cluster Headache Renae Russell PA: [address] [facility] [place] [address], Ph. Social History Tobacco Smoking Status Former [...]
[2022-02-15 13:56] VITALS: BP 124/58; PULSE 61; RESP 16; TEMP 36.4; O2SAT 100
[2022-02-15 14:12] LABS: MANUAL DIFF FLAG NO
[2022-02-15 14:32] LABS: Basophils Absolute Auto 0.1 X10*3/uL (0.0-0.2); Basophils Percent Auto 0.6 % (0-2); Eosinophils Absolute Auto 0.8 X10*3/uL (0.0-0.4); Eosinophils Percent Auto 5.3 % (0-4); Hematocrit 35.1 % (37.0-47.0); Hemoglobin 10.8 g/dl (12.0-16.0); Imm Gran Abs Auto 0.12 X10*3/uL (0.00-0.03); Imm Gran Pct Auto 0.8 % (0.0-0.4); Lymphocytes Absolute Auto 1.7 X10*3/uL (1.2-4.9); Mean Corpuscular HGB Conc 30.8 g/dl (31.0-35.0); Mean Corpuscular Hemoglobin 26.5 pg (27.0-33.0); Mean Corpuscular Volume 86.2 fL (80.0-98.0); Monocytes Absolute Auto 1.5 X10*3/uL (0.1-1.2); Monocytes Percent Auto 9.6 % (2-11); Neutrophils Absolute Auto 11.3 x10*3/uL (2.0-8.3); Neutrophils Percent Auto 72.7 % (45-73); Platelet Count 160 X10*3/uL (160-400); Red Blood Count 4.07 X10*6/uL (4.20-5.50); Red Cell Distribution Width 15.9 % (11.0-16.0); White Blood Count 15.5 X10*3/uL (4.8-10.8)
[2022-02-15 14:46] LABS: Alanine Aminotransferase 14 U/L (0-31); Alkaline Phosphatase 62 U/L (39-117); Anion Gap 14 (12-20); Aspartate Amino Transferase 10 U/L (5-31); Bilirubin Total 0.2 mg/dL (0.0-1.0); Blood Urea Nitrogen 76 mg/dL (9-16); Calcium 9.3 mg/dL (8.4-10.2); Carbon Dioxide 30 mmol/L (22-29); Chloride 98 mmol/L (96-108); Estimated Glomerular Filt Rate 27; Glucose Random 186 mg/dL (60-115); Lactate Dehydrogenase 185 U/L (122-220); Potassium 5.6 mmol/L (3.3-5.1); Sodium 136 mmol/L (135-145); Total Protein 6.1 g/dL (6.5-8.0); Uric Acid 9.6 mg/dL (2.4-5.7)
--- NOTE | 2022-02-15 15:31 | MHC.HEMONCMA ---
patient seen today for appt with provider, VSS, Labs, 3 month followup.
--- NOTE | 2022-02-15 16:54 | P.PNHO-ONC_ITS ---
Medical Summary - Medical Summary Date of Service: 02/15/22 Chief complaint: Hospital follow-up Medical Summary: Diagnosis: CLL Past medical history of? COPD (on home 02), congestive heart failure, diabetes mellitus? type 2,? chronic kidney disease,? hyperlipidemia, hypertension, hypothyroidism, peripheral vascular disease,? and recent COVID infection with admission x 1 month ago? who presented to the emergency room? via EMS with complaint of dyspnea.? Per EMS, patient?s saturation 68% on room air,? low 70s on 2 L via nasal cannula,? she was placed on CPAP during? transfer to hospital.?Her oxygen saturation was 79% on CPAP, obtunded, very tachypneic requiring emergent intubation.Chest CTA:? no pulmonary embolism.? Multifocal areas of consolidation more on left lower lobe. Abdominal CT: Persistent mediastinal lymphadenopathy. There is retroperitoneal lymphadenopathy. Enlarged right inguinal lymph node. These findings are nonspecific. Metastatic disease is possible. Images of the abdomen was consistent with diffuse abdominal lymphadenopathy for which she was underwent groin lymph node aspiration and EUS aspiration of mediastinal lymph nodes. Findings likely consistent with chronic lymphocytic leukemia/small lymphocytic lymphoma Interval History Interval history: Patient is here in follow-up, she is accompanied by her niece Patricia. Patient presented to the emergency department from [facility] where she is currently residing on 02/04/2022. She was diagnosed with RSV. She had pulmonary symptoms of cough and shortness of breath. She was not able to eat or drink much. She has become a bit weaker and not been able to receive any physical therapy. She denies any current fever or chills. No nausea or emesis. No diarrhea or or constipation. No abdominal discomfort. Review of Systems - Constitutional Reports as per [facility] Medical History: Medical History (Last Reviewed 02/15/22 @ 13:59 by Sona Emanuel) CKD (chronic kidney disease) Congestive heart failure COVID Diabetes mellitus with insulin therapy Essential hypertension HLD (hyperlipidemia) HTN (hypertension) Hypothyroidism Infection with ESBL Klebsiella oxytoca Klebsiella pneumonia Lower extremity edema Lymphadenopathy, mediastinal Migraine Obesity Pleural effusion Pseudotumor cerebri PVD (peripheral vascular disease) Suspected deep tissue injury Family History: Family History (Last Reviewed 02/15/22 @ 13:59 by Sona Emanuel) Mother Heart attack, Onset Age: 92 Father Heart attack, Onset Age: 66 Other Diabetes Surgical History: Surgical History (Last Reviewed 02/15/22 @ 13:59 by Sona Emanuel) H/O cataract extraction H/O hysterectomy for benign disease Hx of cholecystectomy S/P appendectomy Social History: Social History (Last Updated 02/15/22 @ 14:00 by Sona Emanuel) Living Situation History: Housing: Assisted Living Facility Alcohol History Details: 1. How often do you have a drink containing alcohol?: a. Never Tobacco History: Patient Tobacco Use Status: Never used Tobacco Substance Use History: Use of substances other than those prescribed or required for medical reasons : No Domestic Abuse History: Have you been hit, kicked, punched, or otherwise hurt by someone within the past year? If so, by whom?: No Do you feel safe in your current relationship?: No Current Relationship Advance Directives: Advance Directives Date on File: 09/26/20 Homicidal Assessment: Do you have thoughts of harming others: None Do you have a plan to hurt others: No Plan Do you have the means to hurt others: No Nutrition Assessment: Recently lost weight without trying: No Occupation Assessmet: service: No Current occupational status: disabled Oncology Screenings - ECOG Performance Status ECOG Performance Status: 2 Home Medications and Allergies Home Medications Medication Instructions Recorded Confirmed Type aspirin 325 mg tablet 325 mg PO DAILY 10/08/21 11/20/21 History brinzolamide 1 %-brimonidine 0.2 % 1 drp ophthalmic-Right BID 10/08/21 11/20/21 History eye drops,suspension (Simbrinza) chlordiazepoxide HCl 10 mg capsule 10 mg PO BEDTIME 10/08/21 11/20/21 History citalopram 20 mg tablet 20 mg PO DAILY 10/08/21 11/20/21 History docusate sodium 100 mg tablet 100 mg PO DAILY 10/08/21 11/20/21 History furosemide 40 mg tablet 40 tab PO BID@0900,1800 10/08/21 11/20/21 History hydroxychloroquine 200 mg tablet 200 mg PO BID 10/08/21 11/20/21 History insulin lispro protamine-lispro 7 - 15 ea subcut TIDAC 10/08/21 11/20/21 History 100 unit/mL (75-25) subcutaneous pen levothyroxine 175 mcg tablet 175 mcg PO DAILY@0600 10/08/21 11/20/21 History multivitamin 1 tab PO DAILY 10/08/21 11/20/21 History netarsudil 0.02 %-latanoprost 1 drp ophthalmic (eye) BEDTIME 10/08/21 11/20/21 History 0.005 % eye drops (Rocklatan) simvastatin 20 mg tablet 20 mg PO BEDTIME 10/08/21 11/20/21 History sitagliptin 100 mg tablet (Januvia) 100 mg PO DAILY 10/08/21 11/20/21 History latanoprost 0.005 % eye drops 1 drp ophthalmic (eye) BEDTIME 11/20/21 11/20/21 History prednisolone ophthalmic-Right 1XD 12/07/21 History timolol drp ophthalmic (eye) 2XD 12/07/21 History Allergies Allergy/AdvReac Type Severity Reaction Status Date / Time oxycodone [From Percocet] Allergy Intermediate Rash Verified 11/19/21 17:16 Exam Vital signs: Vital Signs Temp 97.6 F 02/15/22 13:56 Pulse 61 02/15/22 13:56 Resp 16 02/15/22 13:56 BP 124/58 L 02/15/22 13:56 Pulse Ox 100 02/15/22 13:56 O2 Del Method 02/15/22 13:56 - Constitutional Present: no acute distress, obese - Routine HEENT Exam Head: Present: normal inspection Eye: Present: normal appearance ENT: Present: mucous membranes dry - Routine Neck Exam Present: full ROM. Absent: lymphadenopathy - Routine Respiratory Exam Absent: accessory muscle use - Routine Cardiovascular Exam Cardiovascular: Present: S1, S2 - Routine Extremities Exam Present: pedal edema Comments: Chronic vascular stasis changes with hyperpigmentation of both her shins. - Routine Skin Exam Present: intact - Routine Neurological Exam Present: alert, oriented X3 Data - Labs CBC & Chem 7: 02/15/22 13:56 02/15/22 13:56 Labs: 02/15/22 13:56 Complete Blood Count Auto Diff Stat Comprehensive Met. Panel Stat Lactate Dehydrogenase Routine Uric Acid Routine Laboratory Last Values WBC 15.5 X10*3/uL (4.8-10.8) H 02/15/22 13:56 RBC 4.07 X10*6/uL (4.20-5.50) L 02/15/22 13:56 Hgb 10.8 g/dl (12.0-16.0) L 02/15/22 13:56 Hct 35.1 % (37.0-47.0) L 02/15/22 13:56 MCV 86.2 fL (80.0-98.0) 02/15/22 13:56 MCH 26.5 pg (27.0-33.0) L 02/15/22 13:56 MCHC 30.8 g/dl (31.0-35.0) L 02/15/22 13:56 RDW 15.9 % (11.0-16.0) 02/15/22 13:56 Plt Count 160 X10*3/uL (160-400) D 02/15/22 13:56 MPV 13.0 fL (9.4-12.3) H 02/15/22 13:56 Immature Gran % (Auto) 0.8 % (0.0-0.4) H 02/15/22 13:56 Neut % (Auto) 72.7 % (45-73) 02/15/22 13:56 Lymph % (Auto) 11.0 % (20-40) L 02/15/22 13:56 Trego % (Auto) 9.6 % (2-11) 02/15/22 13:56 Eos % (Auto) 5.3 % (0-4) H 02/15/22 13:56 Baso % (Auto) 0.6 % (0-2) 02/15/22 13:56 Lymph # (Auto) 1.7 X10*3/uL (1.2-4.9) 02/15/22 13:56 Trego # (Auto) 1.5 X10*3/uL (0.1-1.2) H 02/15/22 13:56 Eos # (Auto) 0.8 X10*3/uL (0.0-0.4) H 02/15/22 13:56 Baso # (Auto) 0.1 X10*3/uL (0.0-0.2) 02/15/22 13:56 Abs Immat Gran (auto) 0.12 X10*3/uL (0.00-0.03) H 02/15/22 13:56 Absolute Neuts (auto) 11.3 x10*3/uL (2.0-8.3) H 02/15/22 13:56 Absolute Nucleated RBC 0.000 X10*3/uL (0.0-0.012) 02/15/22 13:56 Nucleated RBC % (auto) 0.0 /100WBC (0.0-0.2) 02/15/22 13:56 Sodium 136 mmol/L (135-145) 02/15/22 13:56 Potassium 5.6 mmol/L (3.3-5.1) H 02/15/22 13:56 Chloride 98 mmol/L (96-108) 02/15/22 13:56 Carbon Dioxide 30 mmol/L (22-29) H 02/15/22 13:56 Anion Gap 14 (12-20) 02/15/22 13:56 BUN 76 mg/dL (9-16) H 02/15/22 13:56 Creatinine 1.82 mg/dL (0.5-1.4) H 02/15/22 13:56 Estim Creat Clear Calc TNP 02/15/22 13:56 Estimated GFR 27 02/15/22 13:56 Random Glucose 186 mg/dL (60-115) H 02/15/22 13:56 Uric Acid 9.6 mg/dL (2.4-5.7) H 02/15/22 13:56 Calcium 9.3 mg/dL (8.4-10.2) D 02/15/22 13:56 Total Bilirubin 0.2 mg/dL (0.0-1.0) 02/15/22 13:56 AST 10 U/L (5-31) 02/15/22 13:56 ALT 14 U/L (0-31) 02/15/22 13:56 Alkaline Phosphatase 62 U/L (39-117) 02/15/22 13:56 Lactate Dehydrogenase 185 U/L (122-220) 02/15/22 13:56 Total Protein 6.1 g/dL (6.5-8.0) L 02/15/22 13:56 Albumin 3.0 g/dL (3.5-5.0) L 02/15/22 13:56 Assessment and Plan Patient Active problem list reviewed?: Yes (1) CLL (chronic lymphocytic leukemia) Status: Chronic Assessment and plan: 1. This is a 71-year-old woman with multiple medical problems as detailed above was been diagnosed with chronic lymphocytic leukemia/ SLL in December 2021. She had presented with respiratory failure and found to have multiple medical issues including finding of diffuse lymphadenopathy. She had bronchoscopy and biopsy of subcarinal lymph node which was positive for CLL. Flow cytometry showed involvement by lambda light chain restricted B-cell population with coexpression of CD5 and CD 23. She was negative for 11 14 translocation. Findings consistent with CLL / SLL. NGS could not be performed because of inadequate tissue. She was diagnosed with RSV infection about 10 days ago. Blood work today shows leukocytosis with worsening of anemia along with acute kidney injury and hyperkalemia. She will need IV hydration. She will be called with results and asked to go to the emergency department. Repeat imaging to be performed in a few months. - Time Spent With Patient Time Spent with Patient (in minutes): 20
--- NOTE | 2022-02-15 17:09 | MHC.HEMONC ---
I called pt NH ([place]) per Dr Ruiz to inform them of pt lab results and need for IVF. I asked for pt to be brought in to [facility] ER for hydration due to worsening of kidney function. They will make arrangements. Patricia Melo is also aware.
--- NOTE | 2022-05-18 14:14 | PM.HEMONCPN ---
Medical Summary - Medical Summary Date of Service: 05/18/22 Chief complaint: Follow-up Medical Summary: Diagnosis: CLL Past medical history of? COPD (on home 02), congestive heart failure, diabetes mellitus? type 2,? chronic kidney disease,? hyperlipidemia, hypertension, hypothyroidism, peripheral vascular disease,? and recent COVID infection with admission x 1 month ago? who presented to the emergency room? via EMS with complaint of dyspnea.? Per EMS, patient?s saturation 68% on room air,? low 70s on 2 L via nasal cannula,? she was placed on CPAP during? transfer to hospital.?Her oxygen saturation was 79% on CPAP, obtunded, very tachypneic requiring emergent intubation.Chest CTA:? no pulmonary embolism.? Multifocal areas of consolidation more on left lower lobe. Abdominal CT: Persistent mediastinal lymphadenopathy. There is retroperitoneal lymphadenopathy. Enlarged right inguinal lymph node. These findings are nonspecific. Metastatic disease is possible. Images of the abdomen was consistent with diffuse abdominal lymphadenopathy for which she was underwent groin lymph node aspiration and EUS aspiration of mediastinal lymph nodes. Findings likely consistent with chronic lymphocytic leukemia/small lymphocytic lymphoma Interval History Interval history: Patient is here in follow-up, she is accompanied by her niece Patricia. Patient has had 2 more hospitalizations, 1 for pneumonia and a 2nd 1 for COVID-19 infection. She remains in the intermediate. She has been mostly bedbound. At this time she denies any chest pain or worsening shortness of breath. No abdominal discomfort, fever, chills or night sweats. Review of Systems - Constitutional Reports as per HPI, Reports lack of energy, Reports malaise - Cardiovascular Reports no additional cardiovascular complaints - Respiratory Reports no additional respiratory complaints [facility] Medical History: Medical History (Last Updated 05/01/22 @ 21:15 by Blaise Julian MD) Acute respiratory failure Chronic lymphocytic leukemia (CLL), B-cell CKD (chronic kidney disease) CLL (chronic lymphocytic leukemia) Congestive heart failure Congestive heart failure COVID COVID-19 Diabetes mellitus with insulin therapy Dyspnea Essential hypertension HLD (hyperlipidemia) HTN (hypertension) Hypothyroidism Hypoxia Infection with ESBL Klebsiella oxytoca Influenza A Klebsiella pneumonia Lower extremity edema Lymphadenopathy, mediastinal Migraine Obesity Pleural effusion Pleural effusion Pneumonia due to COVID-19 virus Pseudotumor cerebri PVD (peripheral vascular disease) Suspected deep tissue injury Family History: Family History (Last Reviewed 12/15/22 @ 19:41 by Lalit Flynn MD) Mother Heart attack, Onset Age: 92 Father Heart attack, Onset Age: 66 Other Diabetes Surgical History: Surgical History (Last Reviewed 04/27/22 @ 11:15 by Amy Rene RN) H/O cataract extraction H/O hysterectomy for benign disease Hx of cholecystectomy S/P appendectomy Social History: Social History (Last Reviewed 04/27/22 @ 10:53 by Viki Sutherland DO) Living Situation History: Household Members: Family Household Members Other:: patient came from a rehab facility, been there since dec Housing: House Do you presently have visiting nurse or other home services: No Alcohol History Details: 1. How often do you have a drink containing alcohol?: a. Never Tobacco History: Patient Tobacco Use Status: Former Tobacco user Substance Use History: Use of substances other than those prescribed or required for medical reasons: No Domestic Abuse History: Have you been hit, kicked, punched, or otherwise hurt by someone within the past year? If so, by whom?: No Do you feel safe in your current relationship?: No Current Relationship Advance Directives: Advance Directives Date on File: 09/26/20 Homicidal Assessment: Do you have thoughts of harming others: None Do you have a plan to hurt others: No Plan Do you have the means to hurt others: No Nutrition Assessment: Recently lost weight without trying: No Occupation Assessmet: service: No Current occupational status: disabled Oncology Screenings - ECOG Performance Status ECOG Performance Status: 3 Home Medications and Allergies Home Medications Medication Instructions Recorded Confirmed Type aspirin 325 mg tablet 325 mg PO DAILY 10/08/21 04/28/22 History chlordiazepoxide HCl 10 mg capsule 10 mg PO BEDTIME 10/08/21 04/28/22 History citalopram 20 mg tablet 40 mg PO DAILY 10/08/21 04/28/22 History hydroxychloroquine 200 mg tablet 200 mg PO BID 10/08/21 04/28/22 History insulin lispro protamine-lispro 0 unit subcut TIDAC 10/08/21 04/28/22 History 100 unit/mL (75-25) subcutaneous pen levothyroxine 175 mcg tablet 175 mcg PO DAILY@0600 10/08/21 04/28/22 History multivitamin 1 tab PO DAILY 10/08/21 04/28/22 History simvastatin 20 mg tablet 20 mg PO BEDTIME 10/08/21 04/28/22 History sitagliptin phosphate 100 mg 100 mg PO DAILY 10/08/21 04/28/22 History tablet (Januvia) latanoprost 0.005 % eye drops 1 drp ophthalmic (eye) BEDTIME 11/20/21 04/28/22 History albuterol sulfate 0.63 mg/3 mL 0.63 mg inhalation Q4-6H PRN 02/16/22 04/28/22 History solution for nebulization Wheezing bisacodyl 10 mg rectal suppository 10 mg RI DAILY PRN Constipation 02/16/22 04/28/22 History brinzolamide 1 %-brimonidine 0.2 % 1 drp ophthalmic-Right BID 02/16/22 04/28/22 History eye drops,suspension (Simbrinza) rdgibiykyh-niwqlonayhjlr-uztnrqtd 1 tab PO QID PRN Pain 02/16/22 04/28/22 History 50 mg-325 mg-40 mg tablet coenzyme Q10 100 mg capsule 50 mg PO DAILY 02/16/22 04/28/22 History (CoQ-10) insulin glargine 100 unit/mL (3 20 unit subcut BEDTIME 02/16/22 04/28/22 History mL) subcutaneous pen (Lantus Solostar U-100 Insulin) magnesium oxide 400 mg PO DAILY 02/16/22 04/28/22 History melatonin 5 mg tablet 5 mg PO BEDTIME PRN Sleep 02/16/22 04/28/22 History metoprolol tartrate 50 mg tablet 50 mg PO BID 02/16/22 04/28/22 History prednisolone acetate 1 % eye 1 drp ophthalmic-Right QID 02/16/22 04/28/22 History drops,suspension riboflavin (vitamin B2) 400 mg 400 mg PO DAILY 02/16/22 04/28/22 History tablet sennosides 8.6 mg tablet (senna) 17.2 mg PO DAILY PRN Constipation 02/16/22 04/28/22 History timolol maleate 0.5 % eye drops 1 drp ophthalmic-Right BID 02/16/22 04/28/22 History carboxymethylcellulose sodium 1 % 1 drp ophthalmic (eye) BID 03/15/22 04/28/22 History eye drops (Artificial Tears (carboxymethylcellulose)) acetaminophen 325 mg tablet 650 mg PO Q4H PRN Pain 04/27/22 04/28/22 History biotin 5 mg capsule 5 mg PO DAILY 04/27/22 04/28/22 History budesonide-formoterol HFA 160 2 puff inhalation BID 04/27/22 04/28/22 History mcg-4.5 mcg/actuation aerosol inhaler (Symbicort) diclofenac sodium 1 % topical gel 4 g topical QID 04/27/22 04/28/22 History furosemide 40 mg tablet 1 tab PO DAILY@1200 04/27/22 04/28/22 History furosemide 40 mg tablet 60 mg PO DAILY 04/27/22 04/28/22 History hydroxyzine HCl 25 mg tablet 1 tab PO DAILY 04/27/22 04/28/22 History umeclidinium 62.5 mcg/actuation 1 inh inhalation DAILY 04/27/22 04/28/22 History blister powder for inhalation (Incruse Ellipta) Allergies Allergy/AdvReac Type Severity Reaction Status Date / Time oxycodone [From Percocet] Allergy Intermediate Rash Verified 04/27/22 11:42 lisinopril Allergy Unknown Unknown Verified 04/27/22 11:42 Exam Vital signs: Vital Signs Temp 97.6 F 02/15/22 13:56 Pulse 61 02/15/22 13:56 Resp 16 02/15/22 13:56 BP 124/58 L 02/15/22 13:56 Pulse Ox 100 02/15/22 13:56 O2 Del Method 02/15/22 13:56 - Constitutional Present: no acute distress, obese - Routine HEENT Exam Head: Present: normal inspection - Routine Neck Exam Present: full ROM. Absent: lymphadenopathy - Routine Respiratory Exam Absent: accessory muscle use - Routine Cardiovascular Exam Cardiovascular: Present: S1, S2 - Routine Extremities Exam Present: pedal edema - Routine Skin Exam Present: intact - Routine Neurological Exam Present: alert, oriented X3 Data - Labs CBC & Chem 7: 05/18/22 14:40 05/18/22 14:40 Assessment and Plan Patient Active problem list reviewed?: Yes (1) CLL (chronic lymphocytic leukemia) Status: Inactive Assessment and plan: 1. This is a 72-year-old woman with multiple medical problems as detailed above was been diagnosed with chronic lymphocytic leukemia/ SLL in December 2021. She had presented with respiratory failure and found to have multiple medical issues including finding of diffuse lymphadenopathy. She had bronchoscopy and biopsy of subcarinal lymph node which was positive for CLL. Flow cytometry showed involvement by lambda light chain restricted B-cell population with coexpression of CD5 and CD 23. She was negative for 11:14 translocation. Findings consistent with CLL / SLL. NGS could not be performed because of inadequate tissue. She was diagnosed with COVID-19 infection in April 2022 and was transferred to [place] ED. she had imaging which did revealed right hilar soft tissue density leg mass obstructing right middle lobe bronchus. She was treated with BiPAP, antibiotics and steroids. Have ordered PET-CT. Unfortunately, there was insufficient tissue for NGS testing on prior biopsy. Blood flow cytometry was negative. I will try to obtain axillary node biopsy if it is PET avid for additional testing. She will be started on systemic therapy as she appears to have progressive disease. Patient has a very poor performance status. She remains in the intermediate and is nonambulatory. Follow-up in 2 weeks. - Time Spent With Patient Time Spent with Patient (in minutes): 35
[2022-05-18 14:48] LABS: MANUAL DIFF FLAG NO
[2022-05-18 14:59] LABS: Basophils Percent Auto 0.3 % (0-2); Eosinophils Percent Auto 0.4 % (0-4); Hematocrit 38.2 % (37.0-47.0); Hemoglobin 11.6 g/dl (12.0-16.0); Imm Gran Abs Auto 0.05 X10*3/uL (0.00-0.03); Imm Gran Pct Auto 0.5 % (0.0-0.4); Lymphocytes Absolute Auto 0.4 X10*3/uL (1.2-4.9); Lymphocytes Percent Auto 4.4 % (20-40); Mean Corpuscular HGB Conc 30.4 g/dl (31.0-35.0); Mean Corpuscular Hemoglobin 25.9 pg (27.0-33.0); Mean Corpuscular Volume 85.3 fL (80.0-98.0); Mean Platelet Volume 10.9 fL (9.4-12.3); Monocytes Absolute Auto 0.5 X10*3/uL (0.1-1.2); Monocytes Percent Auto 5.7 % (2-11); Neutrophils Absolute Auto 8.2 x10*3/uL (2.0-8.3); Neutrophils Percent Auto 88.7 % (45-73); Platelet Count 206 X10*3/uL (160-400); Red Blood Count 4.48 X10*6/uL (4.20-5.50); Red Cell Distribution Width 14.1 % (11.0-16.0); White Blood Count 9.3 X10*3/uL (4.8-10.8)
[2022-05-18 15:11] LABS: Alanine Aminotransferase 14 U/L (0-31); Alkaline Phosphatase 60 U/L (39-117); Anion Gap 15 (12-20); Aspartate Amino Transferase 14 U/L (5-31); Bilirubin Total 0.5 mg/dL (0.0-1.0); Blood Urea Nitrogen 20 mg/dL (9-16); Calcium 8.6 mg/dL (8.4-10.2); Carbon Dioxide 27 mmol/L (22-29); Chloride 101 mmol/L (96-108); Estimated Glomerular Filt Rate 55; Glucose Random 314 mg/dL (60-115); Lactate Dehydrogenase 247 U/L (122-220); Potassium 4.7 mmol/L (3.3-5.1); Sodium 138 mmol/L (135-145); Total Protein 6.1 g/dL (6.5-8.0)
--- NOTE | 2022-05-18 15:22 | MHC.HEMONCMA ---
patient seen today for follow up CLL, VSS, labs, petscan ordered for 05/25/22, given to laila to auth and schedule, followup TBD.
--- NOTE | 2022-05-19 14:11 | MHC.HEMONC ---
I sent Erickson, Specialty Pharmacy Liaison email re: rx Acalabrutinib 100mg po BID that Dr Ruiz wants to start.
[2022-05-21 10:34] LABS: IgA 159 mg/dL (70-320); IgG 1266 mg/dL (600-1540); IgM 239 mg/dL (50-300)
--- NOTE | 2022-05-25 08:53 | MHC.HEMONC ---
Pt niece called to check on status of PET. I told her it is not booked for today and that Gabi is working with [facility] on it.
--- NOTE | 2022-05-25 09:03 | HO.HEMONCPA ---
NO PA REQUIRED FOR PET CT PATIENT HAS MEDICARE . SENT IN CLINICAL INFORMAITON TO [facility] , AWAITING FAX BACK
--- NOTE | 2022-05-26 12:01 | MHC.HEMONC ---
I spoke to Soraya DELONG at [facility] where patient is residing and told her we are making arrangements for pt to have PET and receive Calquence. [facility] to deliver. Pt is not to take until she has teach and f/u on 06/04. We will provide safe handling instructions for care team. We will also make recommendations for labs. I faxed requisition and notes to [facility] to book PET as [facility] does not take patients from SNFs.
--- NOTE | 2022-05-27 14:31 | HO.HEMONCPA ---
PET CT AT [facility] HAS BEEN SCHEDULED FOR 06/21/22 2:50PM
--- NOTE | 2022-05-27 14:32 | MHC.HEMONC ---
PET to be done at 12:20 06/21/22 at [place] per Nurse at [facility]. Pt is to still come in for MD muniz/fabian and Pau teach on 06/08 as she will be starting it prior to PET per Dr Ruiz. Facility RNs aware pt is not to start Calquence until she has received education.
--- NOTE | 2022-05-27 14:45 | MHC.HEMONC ---
I spoke with pt Patricia lucas regarding plan to start oral therapy after teaching and PET will be done on 06/21.
--- NOTE | 2022-06-08 14:02 | PM.HEMONCPN ---
Medical Summary - Medical Summary Date of Service: 06/08/22 Chief complaint: Follow-up Medical Summary: Diagnosis: CLL Past medical history of? COPD (on home 02), congestive heart failure, diabetes mellitus? type 2,? chronic kidney disease,? hyperlipidemia, hypertension, hypothyroidism, peripheral vascular disease,? and recent COVID infection with admission x 1 month ago? who presented to the emergency room? via EMS with complaint of dyspnea.? Per EMS, patient?s saturation 68% on room air,? low 70s on 2 L via nasal cannula,? she was placed on CPAP during? transfer to hospital.?Her oxygen saturation was 79% on CPAP, obtunded, very tachypneic requiring emergent intubation.Chest CTA:? no pulmonary embolism.? Multifocal areas of consolidation more on left lower lobe. Abdominal CT: Persistent mediastinal lymphadenopathy. There is retroperitoneal lymphadenopathy. Enlarged right inguinal lymph node. These findings are nonspecific. Metastatic disease is possible. Images of the abdomen was consistent with diffuse abdominal lymphadenopathy for which she was underwent groin lymph node aspiration and EUS aspiration of mediastinal lymph nodes. Findings likely consistent with chronic lymphocytic leukemia/small lymphocytic lymphoma. She was diagnosed with COVID-19 infection in April 2022 and was transferred to [place] ED. she had imaging which did revealed right hilar soft tissue density leg mass obstructing right middle lobe bronchus. She was treated with BiPAP, antibiotics and steroids. Interval History Interval history: Patient is here in follow-up. She is doing much better but continues to remain at the residential. She is still not ambulatory. She denies any leg pain, chest pain, fever or chills. No nausea, abdominal discomfort or change in bowel habits. She is here to get information about starting chemo pill. Review of Systems - Constitutional Reports as per [facility] Medical History: Medical History (Last Updated 05/01/22 @ 21:15 by Blaise Julian MD) Acute respiratory failure Chronic lymphocytic leukemia (CLL), B-cell CKD (chronic kidney disease) CLL (chronic lymphocytic leukemia) Congestive heart failure Congestive heart failure COVID COVID-19 Diabetes mellitus with insulin therapy Dyspnea Essential hypertension HLD (hyperlipidemia) HTN (hypertension) Hypothyroidism Hypoxia Infection with ESBL Klebsiella oxytoca Influenza A Klebsiella pneumonia Lower extremity edema Lymphadenopathy, mediastinal Migraine Obesity Pleural effusion Pleural effusion Pneumonia due to COVID-19 virus Pseudotumor cerebri PVD (peripheral vascular disease) Suspected deep tissue injury Family History: Family History (Last Reviewed 03/18/22 @ 19:41 by Lalit Flynn MD) Mother Heart attack, Onset Age: 92 Father Heart attack, Onset Age: 66 Other Diabetes Surgical History: Surgical History (Last Reviewed 04/27/22 @ 11:15 by Amy Rene RN) H/O cataract extraction H/O hysterectomy for benign disease Hx of cholecystectomy S/P appendectomy Social History: Social History (Last Reviewed 04/27/22 @ 10:53 by Viki Sutherland DO) Living Situation History: Household Members: Family Household Members Other:: patient came from a rehab facility, been there since dec Housing: House Do you presently have visiting nurse or other home services: No Alcohol History Details: 1. How often do you have a drink containing alcohol?: a. Never Tobacco History: Patient Tobacco Use Status: Former Tobacco user Substance Use History: Use of substances other than those prescribed or required for medical reasons: No Domestic Abuse History: Have you been hit, kicked, punched, or otherwise hurt by someone within the past year? If so, by whom?: No Do you feel safe in your current relationship?: No Current Relationship Advance Directives: Advance Directives Date on File: 09/26/20 Homicidal Assessment: Do you have thoughts of harming others: None Do you have a plan to hurt others: No Plan Do you have the means to hurt others: No Nutrition Assessment: Recently lost weight without trying: No Occupation Assessmet: service: No Current occupational status: disabled Home Medications and Allergies Home Medications Medication Instructions Recorded Confirmed Type aspirin 325 mg tablet 325 mg PO DAILY 10/08/21 04/28/22 History chlordiazepoxide HCl 10 mg capsule 10 mg PO BEDTIME 10/08/21 04/28/22 History citalopram 20 mg tablet 40 mg PO DAILY 10/08/21 04/28/22 History hydroxychloroquine 200 mg tablet 200 mg PO BID 10/08/21 04/28/22 History insulin lispro protamine-lispro 0 unit subcut TIDAC 10/08/21 04/28/22 History 100 unit/mL (75-25) subcutaneous pen levothyroxine 175 mcg tablet 175 mcg PO DAILY@0600 10/08/21 04/28/22 History multivitamin 1 tab PO DAILY 10/08/21 04/28/22 History simvastatin 20 mg tablet 20 mg PO BEDTIME 10/08/21 04/28/22 History sitagliptin phosphate 100 mg 100 mg PO DAILY 10/08/21 04/28/22 History tablet (Januvia) latanoprost 0.005 % eye drops 1 drp ophthalmic (eye) BEDTIME 11/20/21 04/28/22 History albuterol sulfate 0.63 mg/3 mL 0.63 mg inhalation Q4-6H PRN 02/16/22 04/28/22 History solution for nebulization Wheezing bisacodyl 10 mg rectal suppository 10 mg NV DAILY PRN Constipation 02/16/22 04/28/22 History brinzolamide 1 %-brimonidine 0.2 % 1 drp ophthalmic-Right BID 02/16/22 04/28/22 History eye drops,suspension (Simbrinza) xyxjfrbwhl-rwsehreqtvocf-yktrkwna 1 tab PO QID PRN Pain 02/16/22 04/28/22 History 50 mg-325 mg-40 mg tablet coenzyme Q10 100 mg capsule 50 mg PO DAILY 02/16/22 04/28/22 History (CoQ-10) insulin glargine 100 unit/mL (3 20 unit subcut BEDTIME 02/16/22 04/28/22 History mL) subcutaneous pen (Lantus Solostar U-100 Insulin) magnesium oxide 400 mg PO DAILY 02/16/22 04/28/22 History melatonin 5 mg tablet 5 mg PO BEDTIME PRN Sleep 02/16/22 04/28/22 History metoprolol tartrate 50 mg tablet 50 mg PO BID 02/16/22 04/28/22 History prednisolone acetate 1 % eye 1 drp ophthalmic-Right QID 02/16/22 04/28/22 History drops,suspension riboflavin (vitamin B2) 400 mg 400 mg PO DAILY 02/16/22 04/28/22 History tablet sennosides 8.6 mg tablet (senna) 17.2 mg PO DAILY PRN Constipation 02/16/22 04/28/22 History timolol maleate 0.5 % eye drops 1 drp ophthalmic-Right BID 02/16/22 04/28/22 History carboxymethylcellulose sodium 1 % 1 drp ophthalmic (eye) BID 03/15/22 04/28/22 History eye drops (Artificial Tears (carboxymethylcellulose)) acetaminophen 325 mg tablet 650 mg PO Q4H PRN Pain 04/27/22 04/28/22 History biotin 5 mg capsule 5 mg PO DAILY 04/27/22 04/28/22 History budesonide-formoterol HFA 160 2 puff inhalation BID 04/27/22 04/28/22 History mcg-4.5 mcg/actuation aerosol inhaler (Symbicort) diclofenac sodium 1 % topical gel 4 g topical QID 04/27/22 04/28/22 History furosemide 40 mg tablet 1 tab PO DAILY@1200 04/27/22 04/28/22 History furosemide 40 mg tablet 60 mg PO DAILY 04/27/22 04/28/22 History hydroxyzine HCl 25 mg tablet 1 tab PO DAILY 04/27/22 04/28/22 History umeclidinium 62.5 mcg/actuation 1 inh inhalation DAILY 04/27/22 04/28/22 History blister powder for inhalation (Incruse Ellipta) Allergies Allergy/AdvReac Type Severity Reaction Status Date / Time oxycodone [From Percocet] Allergy Intermediate Rash Verified 04/27/22 11:42 lisinopril Allergy Unknown Unknown Verified 04/27/22 11:42 Exam Vital signs: Vital Signs Temp 97.6 F 02/15/22 13:56 Pulse 61 02/15/22 13:56 Resp 16 02/15/22 13:56 BP 124/58 L 02/15/22 13:56 Pulse Ox 100 02/15/22 13:56 O2 Del Method 02/15/22 13:56 - Constitutional Present: no acute distress, obese - Routine HEENT Exam Head: Present: normal inspection - Routine Neck Exam Present: full ROM. Absent: lymphadenopathy - Routine Respiratory Exam Absent: accessory muscle use - Routine Cardiovascular Exam Cardiovascular: Present: S1, S2 - Routine Extremities Exam Present: pedal edema - Routine Skin Exam Present: intact - Routine Neurological Exam Present: alert, oriented X3 Data - Labs CBC & Chem 7: 06/08/22 14:24 06/08/22 14:24 Assessment and Plan Patient Active problem list reviewed?: Yes (1) CLL (chronic lymphocytic leukemia) Status: Chronic Assessment and plan: 1. This is a 72-year-old woman with multiple medical problems as detailed above was been diagnosed with chronic lymphocytic leukemia/ SLL in December 2021. She had presented with respiratory failure and found to have multiple medical issues including finding of diffuse lymphadenopathy. She had bronchoscopy and biopsy of subcarinal lymph node which was positive for CLL. Flow cytometry showed involvement by lambda light chain restricted B-cell population with coexpression of CD5 and CD 23. She was negative for 11:14 translocation. Findings consistent with CLL / SLL. NGS could not be performed because of inadequate tissue. Unfortunately, there was insufficient tissue for NGS testing on prior biopsy. Blood flow cytometry was negative. I will try to obtain axillary node biopsy if it is PET avid for additional testing. She will be started on systemic therapy as she appears to have progressive disease. Today we discussed Acalabrutinib 100 mg po bid as per NCCN guidelines and approved for SLL/ CLL as single agent therapy. We discussed hematological toxicity, risk of arrhythmia and infection. Patient has a very poor performance status. She remains in the residential and is nonambulatory. Blood work will be monitored weekly for the 1st few weeks. Follow-up in 3 weeks. - Time Spent With Patient Time Spent with Patient (in minutes): 30
[2022-06-08 14:33] LABS: MANUAL DIFF FLAG NO
[2022-06-08 14:38] LABS: Basophils Absolute Auto 0.1 X10*3/uL (0.0-0.2); Basophils Percent Auto 0.8 % (0-2); Eosinophils Absolute Auto 0.3 X10*3/uL (0.0-0.4); Eosinophils Percent Auto 2.1 % (0-4); Hematocrit 39.4 % (37.0-47.0); Hemoglobin 12.1 g/dl (12.0-16.0); Imm Gran Abs Auto 0.24 X10*3/uL (0.00-0.03); Imm Gran Pct Auto 1.5 % (0.0-0.4); Lymphocytes Absolute Auto 3.5 X10*3/uL (1.2-4.9); Lymphocytes Percent Auto 21.7 % (20-40); Mean Corpuscular HGB Conc 30.7 g/dl (31.0-35.0); Mean Corpuscular Volume 84.5 fL (80.0-98.0); Mean Platelet Volume 12.1 fL (9.4-12.3); Monocytes Absolute Auto 1.2 X10*3/uL (0.1-1.2); Monocytes Percent Auto 7.5 % (2-11); Neutrophils Absolute Auto 10.8 x10*3/uL (2.0-8.3); Neutrophils Percent Auto 66.4 % (45-73); Platelet Count 130 X10*3/uL (160-400); Red Blood Count 4.66 X10*6/uL (4.20-5.50); Red Cell Distribution Width 15.1 % (11.0-16.0); White Blood Count 16.3 X10*3/uL (4.8-10.8)
[2022-06-08 14:54] LABS: Alanine Aminotransferase 20 U/L (0-31); Alkaline Phosphatase 57 U/L (39-117); Anion Gap 11 (12-20); Aspartate Amino Transferase 18 U/L (5-31); Bilirubin Total 0.3 mg/dL (0.0-1.0); Blood Urea Nitrogen 31 mg/dL (9-16); Calcium 8.5 mg/dL (8.4-10.2); Carbon Dioxide 33 mmol/L (22-29); Chloride 100 mmol/L (96-108); Estimated Glomerular Filt Rate > 60; Glucose Random 118 mg/dL (60-115); Potassium 4.5 mmol/L (3.3-5.1); Sodium 139 mmol/L (135-145); Total Protein 5.8 g/dL (6.5-8.0)
--- NOTE | 2022-06-08 14:59 | MHC.HEMONC ---
Addendum entered by Soraya Ortiz RN 06/08/22 15:20: Per Heather DELONG, acalabrutinib due to arrive at [facility] on . Soraya (RN at [facility]) is aware and knows to begin administrating the same day. Original Note: Here for oral chemotherapy (acalabrutinib) teach, arrived by ambulance from [facility] in [place]. Reviewed medication side effects and schedule and safe handling with Cindy and her niece Patircia. Labs drawn. Spoke by phone with Soraya (RN) at [facility] at [place] ([facility], ) and reviewed safe handing, schedule and request for CBCd and CMP weekly to be faxed to us. Drug and patient information packet given to both Cindy and the EMT to give to the [facility] nurse. Cindy will follow up in a month with Dr Ruiz. Per Dr Ruiz, ok to continue taking aspirin. Cindy is aware of the appointment.
--- NOTE | 2022-06-08 15:18 | MHC.HEMONCMA ---
patient seen today for followup, chemo teaching, labs, 1 month follow up.
[2022-06-08 15:19] VITALS: BP 129/58; PULSE 63; TEMP 36.4; O2SAT 97
[2022-06-09 06:05] LABS: HBS Num1 0.29 mIU/mL (0-7.99); HBc Num1 0.06 S/CO (0.00-0.79); HBsAGNum1 3.11 S/CO (0.00-0.99); Hepatitis A Antibody IgM 0.16 Index (0-0.79); Hepatitis B Core Antibody Nonreactive (Nonreactive); ~HepC Num1 0.11 S/CO (0.00-0.79); ~Hepatitis A Antibody IgM Nonreactive (Nonreactive); ~Hepatitis B Surface Antibody NONREACTIVE (Nonreactive); ~Hepatitis C Antibody Nonreactive (Nonreactive)
[2022-06-09 07:50] LABS: HBsAGNum2 0.43; HBsAGNum3 0.26
[2022-06-09 07:51] LABS: Hepatitis B Surface Antigen Nonreactive (Negative)
--- NOTE | 2022-06-21 08:13 | MHC.HEMONC ---
I spoke to RN at [facility] and pt is scheduled for transportation to PET today at [place].
--- NOTE | 2022-06-21 14:05 | MHC.HEMONC ---
per pt niece, PET unable to be done today due to high glucose. Pt is on prednisone and blood sugars are over 200. They need to be under 200 per Joyce. I have asked nurse at SNF to have Provider adjust meds to get her blood sugar down so we can r/s PET. Dr Ruiz aware.
--- NOTE | 2022-06-25 15:43 | MHC.HEMONC ---
I spoke with nurse at [facility]. Pt has had her diabetes rx adjusted by PA. She has PET r/s for 07/08/22. They will fax us all CBC/CMP. I have requested this weeks labs as we have not received fax.
--- NOTE | 2022-07-06 10:22 | MHC.HEMONC ---
Called [facility] and again requested weekly labs be sent to us (retroactive, as we have not received any).
--- NOTE | 2022-07-06 15:23 | MHC.HEMONC ---
I received two weeks of chemistry reports but no CBC from [facility]. I called and spoke to MARIAH Reese. She will try to track down CBC. I told her of my concern regarding pt glucose over 400 yesterday and need for PET on (canceled once due to high BS). She said she had been trying to work on it but pt is non-compliant with diet.
--- NOTE | 2022-07-07 15:09 | MHC.HEMONC ---
Pt PET is now on 07/22 per Material Preparation Worker at [facility]. I was asked to get pt PT1 which I submitted request for.
--- NOTE | 2022-07-07 16:22 | MHC.HEMONC ---
Triage call- Ubaldo from [facility] called regarding this patient. Looking for when patient was last seen. This nurse gave past dates of follow ups and next follow up on 07/12/22 at 0920am. Ubaldo stated that he is trying to arrange transportation, that he has been in contact with Heather Biswas RN. No other questions.
--- NOTE | 2022-07-12 09:53 | MHC.HEMONC ---
Had to cancel f/u with Dr Ruiz as pt lance came in to inform me that chair joseph went to wrong location to pick her up. I will discuss with Dr Ruiz before r/s.
--- NOTE | 2022-07-12 10:06 | MHC.HEMONC ---
I discussed case with Dr Ruiz. She reviewed pt CBC from last week. We will r/s appt until after PET. I gave her niece f/u appt for 07/26/22 at 10 am. She will let the SNF know.
--- NOTE | 2022-07-26 10:11 | MHC.HEMONC ---
Pt lance called and told me that her aunt was unable to get on w/v van for appt this morning due to it didn't fit in w/c van . She will call and r/s or have LTF reschedule. She did ask if Dr Ruiz could call and update her on PET results and I have asked Dr Ruiz to do that.
--- NOTE | 2022-07-26 10:24 | MHC.HEMONC ---
Spoke with pts lance Gomez, and televisit follow up scheduled for 07/27 at 1230. Lab work and PET scan results will be reviewed with pt and lance tomorrow.
--- NOTE | 2022-07-27 12:03 | MHC.HEMONCMA ---
called patient, patient did not picker packer, when i called the main number a rehab facility answered, and wasnt able to transfer me to patient. patient has no email on file to do telehealth visit.
--- NOTE | 2022-07-27 13:46 | PM.EVENT ---
I discussed PET-CT findings with both patient and her niece Patricia. Patient started medication A Jesus Alberto routine upon 06/10/2022. PET-CT performed 07/22/2022 at [facility] showed multiple enlarged mediastinal lymph nodes measuring up to 1.3 cm in right upper paratracheal region. Conglomerate of lymph nodes in the right lower paratracheal region measuring 3.5 x 3.3 cm, maximum SUV 5. Subcarinal lymph node 1.7 cm with SUV 3.8, left lateral axilla mildly enlarged left axillary lymph node measuring 1.7 cm with max SUV 2.5. Borderline enlarged retroperitoneal lymph nodes measuring up to 0.9 cm with SUV ranging from 2.5-1.3. She is tolerating medication well. I have not received any labs from the assisted, this has been requested multiple times. Follow-up in couple of weeks.
--- NOTE | 2022-07-27 14:20 | MHC.HEMONC ---
Sulma Phillips with pt f/u with Dr Ruiz on 08/11. I have notified Patricia lucas.
--- NOTE | 2022-07-27 15:05 | MHC.HEMONCSW ---
SW called [facility] and spoke to the nurse's statopn for Pt to let them know she has a f/u here on 08/11 @ 10:40am. They will scheduled transportation.
--- NOTE | 2022-08-06 15:05 | MHC.HEMONC ---
Triage call-received call from lisa who states pt is inpatient on 4th floor at [facility] with a blood clot in arm-calling to notify Dr Ruiz-message given to Shi LOBO to give to Sona LOBO when she returns
--- NOTE | 2022-08-11 10:49 | PM.HEMONCPN ---
Medical Summary - Medical Summary Date of Service: 08/11/22 Chief complaint: Follow-up Medical Summary: Diagnosis: CLL Past medical history of? COPD (on home 02), congestive heart failure, diabetes mellitus? type 2,? chronic kidney disease,? hyperlipidemia, hypertension, hypothyroidism, peripheral vascular disease,? and recent COVID infection with admission x 1 month ago? who presented to the emergency room? via EMS with complaint of dyspnea.? Per EMS, patient?s saturation 68% on room air,? low 70s on 2 L via nasal cannula,? she was placed on CPAP during? transfer to hospital.?Her oxygen saturation was 79% on CPAP, obtunded, very tachypneic requiring emergent intubation.Chest CTA:? no pulmonary embolism.? Multifocal areas of consolidation more on left lower lobe. Abdominal CT: Persistent mediastinal lymphadenopathy. There is retroperitoneal lymphadenopathy. Enlarged right inguinal lymph node. These findings are nonspecific. Metastatic disease is possible. Images of the abdomen was consistent with diffuse abdominal lymphadenopathy for which she was underwent groin lymph node aspiration and EUS aspiration of mediastinal lymph nodes. Findings likely consistent with chronic lymphocytic leukemia/small lymphocytic lymphoma. She was diagnosed with COVID-19 infection in April 2022 and was transferred to [place] ED. she had imaging which did revealed right hilar soft tissue density leg mass obstructing right middle lobe bronchus. She was treated with BiPAP, antibiotics and steroids. Interval History Interval history: Patient is here in follow-up. She is doing better now but reports a generalized body rash that started 2 days after she was discharged from the hospital. She was admitted for acute on chronic respiratory failure end of July. She required BiPAP and diuretics. She was briefly admitted to the ICU. She developed right upper extremity DVT related to IV line placement. She was started on Lovenox and later switched to apixaban. That is only new medication that she is currently on. She has been taking her chemo pill daily and tolerating it well. She denies any bruising or bleeding problems. Review of Systems - Constitutional Reports as per HPI, Denies fatigue, Denies lack of energy, Denies malaise [facility] Medical History: Medical History (Last Reviewed 08/11/22 @ 10:51 by Sona Emanuel) Acute respiratory failure Chronic lymphocytic leukemia (CLL), B-cell CKD (chronic kidney disease) CLL (chronic lymphocytic leukemia) Congestive heart failure Congestive heart failure COVID COVID-19 Diabetes mellitus with insulin therapy Dyspnea Essential hypertension HLD (hyperlipidemia) HTN (hypertension) Hypothyroidism Hypoxia Infection with ESBL Klebsiella oxytoca Influenza A Klebsiella pneumonia Lower extremity edema Lymphadenopathy, mediastinal Migraine Obesity Pleural effusion Pleural effusion Pneumonia due to COVID-19 virus Pseudotumor cerebri PVD (peripheral vascular disease) Suspected deep tissue injury Family History: Family History (Last Reviewed 08/11/22 @ 10:51 by Sona Emanuel) Mother Heart attack, Onset Age: 92 Father Heart attack, Onset Age: 66 Other Diabetes Surgical History: Surgical History (Last Reviewed 08/11/22 @ 10:51 by Sona Emanuel) H/O cataract extraction H/O hysterectomy for benign disease Hx of cholecystectomy S/P appendectomy Social History: Social History (Last Reviewed 08/11/22 @ 10:52 by Sona Emanuel) Living Situation History: Household Members: Family Household Members Other:: patient came from a rehab facility, been there since dec Housing: [facility] Do you presently have visiting nurse or other home services: No Alcohol History Details: 1. How often do you have a drink containing alcohol?: a. Never Tobacco History: Patient Tobacco Use Status: Former Tobacco user Substance Use History: Use of substances other than those prescribed or required for medical reasons: No Domestic Abuse History: Have you been hit, kicked, punched, or otherwise hurt by someone within the past year? If so, by whom?: No Do you feel safe in your current relationship?: No Current Relationship Advance Directives: Advance Directives Date on File: 09/26/20 Homicidal Assessment: Do you have thoughts of harming others: None Do you have a plan to hurt others: No Plan Do you have the means to hurt others: No Nutrition Assessment: Recently lost weight without trying: No Occupation Assessmet: service: No Current occupational status: disabled Home Medications and Allergies Home Medications Medication Instructions Recorded Confirmed Type chlordiazepoxide HCl 10 mg capsule 10 mg PO BEDTIME 10/08/21 08/11/22 History citalopram 20 mg tablet 40 mg PO DAILY 10/08/21 08/11/22 History insulin lispro protamine-lispro 0 unit subcut TIDAC 10/08/21 08/11/22 History 100 unit/mL (75-25) subcutaneous pen levothyroxine 175 mcg tablet 175 mcg PO DAILY@0600 07/07/22 05/10/23 History simvastatin 20 mg tablet 20 mg PO BEDTIME 10/08/21 08/11/22 History sitagliptin phosphate 100 mg 100 mg PO DAILY 10/08/21 08/11/22 History tablet (Januvia) latanoprost 0.005 % eye drops 1 drp ophthalmic (eye) BEDTIME 11/20/21 07/30/22 History albuterol sulfate 0.63 mg/3 mL 0.63 mg inhalation Q4-6H PRN 02/16/22 08/11/22 History solution for nebulization Wheezing brinzolamide 1 %-brimonidine 0.2 % 1 drp ophthalmic-Right BID 02/16/22 08/11/22 History eye drops,suspension (Simbrinza) bfrsgjeyky-mbrkitgfluosa-rbisquij 1 tab PO QID PRN Pain 02/16/22 08/11/22 History 50 mg-325 mg-40 mg tablet coenzyme Q10 100 mg capsule 50 mg PO DAILY 02/16/22 08/11/22 History (CoQ-10) insulin glargine 100 unit/mL (3 20 unit subcut BID 02/16/22 07/30/22 History mL) subcutaneous pen (Lantus Solostar U-100 Insulin) melatonin 5 mg tablet 5 mg PO BEDTIME PRN Sleep 02/16/22 08/11/22 History metoprolol tartrate 50 mg tablet 50 mg PO BID 02/16/22 08/11/22 History prednisolone acetate 1 % eye 1 drp ophthalmic-Right QID 02/16/22 08/11/22 History drops,suspension sennosides 8.6 mg tablet (senna) 17.2 mg PO DAILY PRN Constipation 02/16/22 08/11/22 History timolol maleate 0.5 % eye drops 1 drp ophthalmic-Right BID 02/16/22 08/11/22 History carboxymethylcellulose sodium 1 % 1 drp ophthalmic (eye) BID 03/15/22 08/11/22 History eye drops (Artificial Tears (carboxymethylcellulose)) budesonide-formoterol HFA 160 2 puff inhalation BID 04/27/22 08/11/22 History mcg-4.5 mcg/actuation aerosol inhaler (Symbicort) diclofenac sodium 1 % topical gel 4 g topical QID 04/27/22 08/11/22 History umeclidinium 62.5 mcg/actuation 1 inh inhalation DAILY 04/27/22 08/11/22 History blister powder for inhalation (Incruse Ellipta) acetaminophen 325 mg tablet 650 mg PO Q4H PRN Pain (Scale 06/08/22 08/11/22 History (Tylenol) Score 4-6) amlodipine 10 mg tablet 10 mg PO DAILY high blood pressure 06/08/22 08/11/22 History guaifenesin 600 mg tablet, 600 mg PO BID cough 06/08/22 08/11/22 History extended release 12 hr polyethylene glycol 3350 17 17 g PO DAILY 06/08/22 08/11/22 History gram/dose oral powder (Miralax) prednisone 10 mg tablet 8 mg PO DAILY 06/08/22 08/11/22 History sodium phosphates 19 gram-7 118 ml MO BEDTIME PRN Constipation 06/08/22 08/11/22 History gram/118 mL enema (Fleet Enema) levalbuterol HCl 1.25 mg/3 mL 1.25 mg inhalation QID 07/30/22 08/11/22 History solution for nebulization apixaban 5 mg tablet 5 mg PO BID 08/11/22 08/11/22 History biotin 5 mg tablet 5 mg PO DAILY 08/11/22 08/11/22 History bisacodyl 10 mg rectal suppository 10 mg MO DAILY PRN Constipation 08/11/22 08/11/22 History guaifenesin 100 mg/5 mL oral liquid 200 mg PO Q4H PRN Pain (Scale 08/11/22 08/11/22 History Score 1-3) hydroxychloroquine 200 mg tablet 200 mg PO BID 08/11/22 08/11/22 History hydroxyzine HCl 25 mg tablet 25 mg PO DAILY 08/11/22 08/11/22 History lorazepam 0.5 mg tablet 0.5 mg PO BID PRN Anxiety 08/11/22 08/11/22 History magnesium 200 mg tablet 400 mg PO DAILY 08/11/22 08/11/22 History riboflavin (vitamin B2) 400 mg 400 mg PO DAILY 08/11/22 08/11/22 History tablet Allergies Allergy/AdvReac Type Severity Reaction Status Date / Time oxycodone [From Percocet] Allergy Intermediate Rash Verified 04/27/22 11:42 lisinopril Allergy Unknown Unknown Verified 04/27/22 11:42 Exam Vital signs: Vital Signs Temp 97.6 F 06/08/22 15:19 Pulse 63 06/08/22 15:19 Resp 16 02/15/22 13:56 BP 129/58 L 06/08/22 15:19 Pulse Ox 97 06/08/22 15:19 O2 Del Method Room Air 06/08/22 15:19 - Constitutional Present: no acute distress, obese - Routine HEENT Exam Head: Present: normal inspection - Routine Neck Exam Present: full ROM. Absent: lymphadenopathy - Routine Respiratory Exam Absent: accessory muscle use - Routine Cardiovascular Exam Cardiovascular: Present: S1, S2 - Routine Extremities Exam Present: pedal edema - Routine Skin Exam Present: intact, rash - Routine Neurological Exam Present: alert, oriented X3 Data - Labs CBC & Chem 7: 06/08/22 14:24 06/08/22 14:24 Assessment and Plan Patient Active problem list reviewed?: Yes (1) CLL (chronic lymphocytic leukemia) Status: Chronic Assessment and plan: 1. This is a 72-year-old woman with multiple medical problems as detailed above was been diagnosed with chronic lymphocytic leukemia/ SLL in December 2021. She had presented with respiratory failure and found to have multiple medical issues including finding of diffuse lymphadenopathy. She had bronchoscopy and biopsy of subcarinal lymph node which was positive for CLL. Flow cytometry showed involvement by lambda light chain restricted B-cell population with coexpression of CD5 and CD 23. She was negative for 11:14 translocation. Findings consistent with CLL / SLL. NGS could not be performed because of inadequate tissue. Unfortunately, there was insufficient tissue for NGS testing on prior biopsy. Blood flow cytometry was negative. I will try to obtain axillary node biopsy if it is PET avid for additional testing. Patient has a very poor performance status. She remains in the half-way and is nonambulatory. She was started Acalabrutinib 100 mg po bid since May 2022. She is tolerating it well. She had CT chest with contrast in July 2022 which shows resolution of mediastinal and hilar adenopathy. 2. Right upper extremity, brachial vein thrombosis related to IV line placement during hospitalization. She is on Eliquis. One month of anticoagulation is recommended. 2. Drug rash probably related to Eliquis. I have asked them to stop this and switch to Xarelto 20 mg once a day. This should be continued for 1 month and stop. Follow-up in 8 weeks. - Time Spent With Patient Time Spent with Patient (in minutes): 25
[2022-08-11 10:51] VITALS: BP 148/67; PULSE 60; RESP 15; TEMP 36.6; O2SAT 100
--- NOTE | 2022-08-11 11:26 | MHC.HEMONCMA ---
patient seen today for followup lymphoma, VSS, 1 month followup.
--- NOTE | 2022-09-15 15:31 | MHC.HEMONC ---
I faxed recent (August 2022) note to [facility] per request of pt lance so they could follow plan for d/c Xarelto per Dr Ruiz.
--- NOTE | 2022-10-11 12:58 | MHC.HEMONC ---
Refill for Calquence requested by Sophie. Dr Ruiz notified.
--- NOTE | 2022-12-10 10:32 | MHC.HEMONC ---
Pt lance Gomez to receive call from Ada ([facility] [place] [facility]) regarding shipment of Calquence. [facility].
--- NOTE | 2023-04-06 15:37 | MHC.HEMONC ---
I made pt an appt for f/u with Dr Ruiz and notified her niece, Patricia. Dr Ruiz reviewed labs and will not reorder Calquence until she is seen and assessed.
[2023-04-13 14:22] VITALS: BP 127/75
--- NOTE | 2023-04-13 14:26 | P.PNHO-ONC_ITS ---
Medical Summary - Medical Summary Date of Service: 04/13/23 Chief complaint: Follow-up Primary Care Provider: Osiris Mckenzie Medical Summary: Diagnosis: CLL Past medical history of? COPD (on home 02), congestive heart failure, diabetes mellitus? type 2,? chronic kidney disease,? hyperlipidemia, hypertension, hypothyroidism, peripheral vascular disease,? and recent COVID infection with admission x 1 month ago? who presented to the emergency room? via EMS with complaint of dyspnea.? Per EMS, patient?s saturation 68% on room air,? low 70s on 2 L via nasal cannula,? she was placed on CPAP during? transfer to hospital.?Her oxygen saturation was 79% on CPAP, obtunded, very tachypneic requiring emergent intubation.Chest CTA:? no pulmonary embolism.? Multifocal areas of consolidation more on left lower lobe. Abdominal CT: Persistent mediastinal lymphadenopathy. There is retroperitoneal lymphadenopathy. Enlarged right inguinal lymph node. These findings are nonspecific. Metastatic disease is possible. Images of the abdomen was consistent with diffuse abdominal lymphadenopathy for which she was underwent groin lymph node aspiration and EUS aspiration of mediastinal lymph nodes. Findings likely consistent with chronic lymphocytic leukemia/small lymphocytic lymphoma. She was diagnosed with COVID-19 infection in April 2022 and was transferred to [facility] ED. she had imaging which did revealed right hilar soft tissue density leg mass obstructing right middle lobe bronchus. She was treated with BiPAP, antibiotics and steroids. Interval History Interval history: Patient is here in follow-up. She was last seen here in August, she has had multiple hospitalizations secondary to cardiac issues predominantly. No history of any acute or chronic blood losses or skin bruises. She is no longer on anticoagulation. Her last dose of acalabrutinib it was in last week of March 2023. Her niece is trying to bring her home. At this time patient denies any acute physical complaints. She remains at nursing and is mainly bed-bound. Review of Systems - Constitutional Reports as per HPI, Reports fatigue, Reports weakness PMFSH Medical History: Medical History (Last Reviewed 04/13/23 @ 14:20 by Shi Ovalle) (HFpEF) heart failure with preserved ejection fraction Acute and chronic respiratory failure with hypoxia Acute kidney injury superimposed on CKD Acute on chronic heart failure with preserved ejection fraction Acute respiratory failure Acute respiratory failure with hypoxia Acute UTI Anemia Bradycardia Chronic lymphocytic leukemia (CLL), B-cell CKD (chronic kidney disease) CKD (chronic kidney disease) stage 3, GFR 30-59 ml/min CLL (chronic lymphocytic leukemia) Congestive heart failure Congestive heart failure Congestive heart failure Congestive heart failure COPD exacerbation COVID COVID COVID-19 Diabetes mellitus with insulin therapy Dyspnea Essential hypertension Heart block AV second degree HLD (hyperlipidemia) HTN (hypertension) Hypothyroidism Hypoventilation associated with obesity Hypoxia Infection with ESBL Klebsiella oxytoca Influenza A Klebsiella pneumonia Lower extremity edema Lymphadenopathy, mediastinal Migraine Morbid obesity Obesity LATONYA (obstructive sleep apnea) Pleural effusion Pleural effusion Pneumonia due to COVID-19 virus Pseudotumor cerebri PVD (peripheral vascular disease) Rash Suspected deep tissue injury Family History: Family History (Last Reviewed 04/13/23 @ 14:20 by Shi Ovalle) Mother Heart attack, Onset Age: 92 Father Heart attack, Onset Age: 66 Other Diabetes Surgical History: Surgical History (Last Reviewed 04/13/23 @ 14:20 by Shi Ovalle) H/O cataract extraction H/O hysterectomy for benign disease Hx of cholecystectomy S/P appendectomy Social History: Social History (Last Reviewed 04/13/23 @ 14:20 by Shi Ovalle) Living Situation History: Household Members: Other Household Members Other:: Assisted living facility Housing: Group Home Do you presently have visiting nurse or other home services: Do you presently have visiting nurse or other home services comment: assisted living Alcohol History Details: 1. How often do you have a drink containing alcohol?: a. Never Tobacco History: Patient Tobacco Use Status: Former Tobacco user Second Hand Smoke Exposure: No Substance Use History: Use of substances other than those prescribed or required for medical reasons : No Domestic Abuse History: Have you been hit, kicked, punched, or otherwise hurt by someone within the past year? If so, by whom?: No Do you feel safe in your current relationship?: No Current Relationship Advance Directives: Advance Directives Date on File: 09/26/20 Homicidal Assessment: Do you have thoughts of harming others: None Do you have a plan to hurt others: No Plan Do you have the means to hurt others: No Nutrition Assessment: Recently lost weight without trying: No Occupation Assessmet: service: No Current occupational status: disabled Home Medications and Allergies Home Medications Medication Instructions Recorded Confirmed Type chlordiazepoxide HCl 10 mg capsule 10 mg PO BEDTIME 10/08/21 04/13/23 History citalopram 20 mg tablet 20 mg PO DAILY 10/08/21 04/13/23 History insulin lispro protamine-lispro 0 unit subcut QIDACHS 10/08/21 04/13/23 History 100 unit/mL (75-25) subcutaneous pen levothyroxine 175 mcg tablet 175 mcg PO DAILY@0600 10/08/21 04/13/23 History simvastatin 20 mg tablet 20 mg PO BEDTIME 10/08/21 04/13/23 History sitagliptin phosphate 100 mg 100 mg PO DAILY 10/08/21 04/13/23 History tablet (Januvia) latanoprost 0.005 % eye drops 1 drp ophthalmic (eye) BEDTIME 11/20/21 04/13/23 History albuterol sulfate 0.63 mg/3 mL 0.63 mg inhalation Q2H PRN 02/16/22 04/13/23 History solution for nebulization Shortness Of Breath Or Wheezing brinzolamide 1 %-brimonidine 0.2 % 1 drp ophthalmic-Right BID 02/16/22 04/13/23 History eye drops,suspension (Simbrinza) dvqeaqxxpf-mqffcrbygimbn-nokvjbdc 1 tab PO Q6H PRN Headache 02/16/22 04/13/23 History 50 mg-325 mg-40 mg tablet coenzyme Q10 100 mg capsule 150 mg PO DAILY 02/16/22 04/13/23 History (CoQ-10) melatonin 5 mg tablet 5 mg PO BEDTIME 02/16/22 04/13/23 History prednisolone acetate 1 % eye 1 drp ophthalmic-Right DAILY 02/16/22 04/13/23 History drops,suspension timolol maleate 0.5 % eye drops 1 drp ophthalmic-Right BID 02/16/22 04/13/23 History carboxymethylcellulose sodium 1 % 1 drp ophthalmic (eye) BID 03/15/22 04/13/23 History eye drops (Artificial Tears (carboxymethylcellulose)) budesonide-formoterol HFA 160 2 puff inhalation BID 04/27/22 04/13/23 History mcg-4.5 mcg/actuation aerosol inhaler (Symbicort) umeclidinium 62.5 mcg/actuation 1 inh inhalation DAILY 04/27/22 04/13/23 History blister powder for inhalation (Incruse Ellipta) guaifenesin 600 mg tablet, 600 mg PO BID cough 06/08/22 04/13/23 History extended release 12 hr sodium phosphates 19 gram-7 118 ml RI DAILY PRN Constipation 06/08/22 04/13/23 History gram/118 mL enema (Fleet Enema) levalbuterol HCl 1.25 mg/3 mL 1.25 mg inhalation QID 07/30/22 04/13/23 History solution for nebulization biotin 5 mg tablet 5 mg PO DAILY 08/11/22 04/13/23 History bisacodyl 10 mg rectal suppository 10 mg RI DAILY PRN Constipation 08/11/22 04/13/23 History hydroxychloroquine 200 mg tablet 200 mg PO BID 08/11/22 04/13/23 History hydroxyzine HCl 25 mg tablet 25 mg PO DAILY 08/11/22 04/13/23 History lorazepam 0.5 mg tablet 0.5 mg PO BID Anxiety 08/11/22 04/13/23 History magnesium 200 mg tablet 200 mg PO DAILY 08/11/22 04/13/23 History riboflavin (vitamin B2) 400 mg 400 mg PO DAILY 08/11/22 04/13/23 History tablet prednisone 1 mg tablet 6 mg PO DAILY 10/27/22 04/13/23 History Lactobacillus acidophilus 1 tab PO DAILY 02/14/23 04/13/23 History (Acidophilus chewable tablet) Allergies Allergy/AdvReac Type Severity Reaction Status Date / Time oxycodone [From Percocet] Allergy Intermediate Rash Verified 04/13/23 14:20 lisinopril Allergy Unknown Unknown Verified 04/13/23 14:20 metoprolol AdvReac Severe bradycardia Verified 04/13/23 14:20 Exam Vital signs: Vital Signs Temp 97.9 F 08/11/22 10:51 Pulse 60 08/11/22 10:51 Resp 15 08/11/22 10:51 BP 127/75 04/13/23 14:22 Pulse Ox 100 08/11/22 10:51 O2 Del Method Room Air, Nasal Cannula 08/11/22 10:51 - Constitutional Present: no acute distress, obese - Routine HEENT Exam Head: Present: normal inspection - Routine Neck Exam Present: full ROM. Absent: lymphadenopathy - Routine Respiratory Exam Absent: accessory muscle use - Routine Cardiovascular Exam Cardiovascular: Present: S1, S2 - Routine Extremities Exam Present: pedal edema - Routine Skin Exam Present: intact, rash - Routine Neurological Exam Present: alert, oriented X3 Data - Labs CBC & Chem 7: 06/08/22 14:24 06/08/22 14:24 Assessment and Plan Patient Active problem list reviewed?: Yes (1) CLL (chronic lymphocytic leukemia) Status: Inactive Assessment and plan: 1. This is a 73-year-old woman with multiple medical problems as detailed above was been diagnosed with chronic lymphocytic leukemia/ SLL in December 2021. She had presented with respiratory failure and found to have multiple medical issues including finding of diffuse lymphadenopathy. She had bronchoscopy and biopsy of subcarinal lymph node which was positive for CLL. Flow cytometry showed involvement by lambda light chain restricted B-cell population with coexpression of CD5 and CD 23. She was negative for 11:14 translocation. Findings consistent with CLL / SLL. NGS could not be performed because of inadequate tissue. Unfortunately, there was insufficient tissue for NGS testing on prior biopsy. Blood flow cytometry was negative. Patient has a very poor performance status. She remains in the custodial and is nonambulatory. She was started Acalabrutinib 100 mg po bid since May 2022. She had CT chest with contrast in July 2022 which shows resolution of mediastinal and hilar adenopathy. She has had multiple hospitalizations in the last 6 months for cardiac issues. She has developed anemia after her recent acute kidney injury. I have asked her to hold Acalabrutinib. Her last hemoglobin was 7.9 gram/dL. She has weekly labs. I have asked needs to call if patient develops any new symptoms or her hemoglobin drops below 7 gram/dL. 2. Right upper extremity, brachial vein thrombosis related to IV line placement during hospitalization. She finished anticoagulation 3 months. Follow-up in 8 weeks. - Time Spent With Patient Time Spent with Patient (in minutes): 20
== END 2023-07-03 | disposition home or self-care (01) ==
LOC: HO.ONC 14:40
PROVIDERS: Visit Provider Internal Medicine
DX: C91.10 Chronic lymphocytic leukemia of B-cell type not having achieved remission (principal); I82.621 Acute embolism and thrombosis of deep veins of right upper extremity; D64.9 Anemia, unspecified; E87.5 Hyperkalemia; J44.9 Chronic obstructive pulmonary disease, unspecified; Z79.899 Other long term (current) drug therapy; Z99.81 Dependence on supplemental oxygen
CPT/HCPCS: 36415; 80053; 82784; 83615; 84550; 85025; 86334; 86704; 86706; 86709; 86803; 87340; 88184; 88185; 99214; 99215

== ENCOUNTER 2023-04-18 07:23 | Outpatient (REF) | payer MEDICARE, MEDICAID, SELFPAY ==
[2023-04-18 06:32] LABS: MANUAL DIFF FLAG NO
[2023-04-18 06:45] LABS: Basophils Absolute Auto 0.1 X10*3/uL (0.0-0.2); Basophils Percent Auto 0.5 % (0-2); Eosinophils Absolute Auto 0.4 X10*3/uL (0.0-0.4); Eosinophils Percent Auto 2.1 % (0-4); Hematocrit 26.9 % (37.0-47.0); Imm Gran Abs Auto 0.23 X10*3/uL (0.00-0.03); Imm Gran Pct Auto 1.1 % (0.0-0.4); Lymphocytes Percent Auto 9.9 % (20-40); Mean Corpuscular HGB Conc 29.7 g/dl (31.0-35.0); Mean Corpuscular Hemoglobin 24.6 pg (27.0-33.0); Mean Corpuscular Volume 82.8 fL (80.0-98.0); Mean Platelet Volume 11.4 fL (9.4-12.3); Monocytes Absolute Auto 1.4 X10*3/uL (0.1-1.2); Neutrophils Percent Auto 79.4 % (45-73); Platelet Count 231 X10*3/uL (160-400); Red Blood Count 3.25 X10*6/uL (4.20-5.50); Red Cell Distribution Width 14.5 % (11.0-16.0); White Blood Count 20.1 X10*3/uL (4.8-10.8)
[2023-04-18 07:11] LABS: Anion Gap 15 (12-20); Blood Urea Nitrogen 37 mg/dL (9-16); Calcium 8.6 mg/dL (8.4-10.2); Carbon Dioxide 27 mmol/L (22-29); Chloride 97 mmol/L (96-108); Estimated Glomerular Filt Rate 23; Glucose Random 257 mg/dL (60-115); Potassium 4.4 mmol/L (3.3-5.1); Sodium 135 mmol/L (135-145)
== END 2023-04-18 07:24 | disposition home or self-care (01) ==
LOC: HO.MMNH2L 07:23
PROVIDERS: Visit Provider Family Medicine
DX: N18.9 Chronic kidney disease, unspecified (principal)
CPT/HCPCS: 36415; 80048; 85025

== ENCOUNTER 2023-04-19 05:47 | Outpatient (REF) | payer MEDICARE, MEDICAID, SELFPAY ==
[2023-04-19 05:50] LABS: MANUAL DIFF FLAG NO
[2023-04-19 06:11] LABS: Basophils Absolute Auto 0.1 X10*3/uL (0.0-0.2); Basophils Percent Auto 0.4 % (0-2); Eosinophils Absolute Auto 0.1 X10*3/uL (0.0-0.4); Eosinophils Percent Auto 0.4 % (0-4); Hematocrit 27.2 % (37.0-47.0); Hemoglobin 7.9 g/dl (12.0-16.0); Imm Gran Abs Auto 0.13 X10*3/uL (0.00-0.03); Lymphocytes Absolute Auto 1.6 X10*3/uL (1.2-4.9); Lymphocytes Percent Auto 11.6 % (20-40); Mean Corpuscular Hemoglobin 23.8 pg (27.0-33.0); Mean Corpuscular Volume 81.9 fL (80.0-98.0); Mean Platelet Volume 11.1 fL (9.4-12.3); Monocytes Absolute Auto 1.5 X10*3/uL (0.1-1.2); Monocytes Percent Auto 10.8 % (2-11); Neutrophils Absolute Auto 10.3 x10*3/uL (2.0-8.3); Neutrophils Percent Auto 75.8 % (45-73); Platelet Count 215 X10*3/uL (160-400); Red Blood Count 3.32 X10*6/uL (4.20-5.50); Red Cell Distribution Width 14.4 % (11.0-16.0); White Blood Count 13.6 X10*3/uL (4.8-10.8)
[2023-04-19 06:38] LABS: Alanine Aminotransferase 11 U/L (0-31); Albumin Level 2.6 g/dL (3.5-5.0); Alkaline Phosphatase 72 U/L (39-117); Anion Gap 14 (12-20); Aspartate Amino Transferase 9 U/L (5-31); Bilirubin Total 0.1 mg/dL (0.0-1.0); Blood Urea Nitrogen 37 mg/dL (9-16); Calcium 8.3 mg/dL (8.4-10.2); Carbon Dioxide 29 mmol/L (22-29); Chloride 93 mmol/L (96-108); Estimated Glomerular Filt Rate 26; Glucose Random 393 mg/dL (60-115); Potassium 4.1 mmol/L (3.3-5.1); Sodium 132 mmol/L (135-145)
== END 2023-04-19 05:48 | disposition home or self-care (01) ==
LOC: HO.MMNH2L 05:47
PROVIDERS: Visit Provider Family Medicine
DX: I10 Essential (primary) hypertension (principal)
CPT/HCPCS: 36415; 80053; 85025

== ENCOUNTER 2023-04-20 05:42 | Outpatient (REF) | payer MEDICARE, MEDICAID, SELFPAY ==
[2023-04-20 05:46] LABS: MANUAL DIFF FLAG NO
[2023-04-20 06:08] LABS: Basophils Absolute Auto 0.1 X10*3/uL (0.0-0.2); Basophils Percent Auto 0.5 % (0-2); Eosinophils Absolute Auto 0.4 X10*3/uL (0.0-0.4); Eosinophils Percent Auto 3.6 % (0-4); Hematocrit 28.1 % (37.0-47.0); Hemoglobin 8.3 g/dl (12.0-16.0); Imm Gran Abs Auto 0.11 X10*3/uL (0.00-0.03); Lymphocytes Percent Auto 17.8 % (20-40); Mean Corpuscular HGB Conc 29.5 g/dl (31.0-35.0); Mean Corpuscular Hemoglobin 24.3 pg (27.0-33.0); Mean Corpuscular Volume 82.2 fL (80.0-98.0); Mean Platelet Volume 11.2 fL (9.4-12.3); Monocytes Absolute Auto 1.1 X10*3/uL (0.1-1.2); Neutrophils Absolute Auto 7.4 x10*3/uL (2.0-8.3); Neutrophils Percent Auto 67.1 % (45-73); Platelet Count 219 X10*3/uL (160-400); Red Blood Count 3.42 X10*6/uL (4.20-5.50); Red Cell Distribution Width 14.4 % (11.0-16.0); White Blood Count 11.1 X10*3/uL (4.8-10.8)
== END 2023-04-20 05:43 | disposition home or self-care (01) ==
LOC: HO.MMNH2L 05:42
PROVIDERS: Visit Provider Family Medicine
DX: M62.59 Muscle wasting and atrophy, not elsewhere classified, multiple sites (principal); J96.01 Acute respiratory failure with hypoxia
CPT/HCPCS: 36415; 85025

== ENCOUNTER 2023-04-25 06:36 | Outpatient (REF) | payer MEDICARE, MEDICAID, SELFPAY ==
[2023-04-25 06:10] LABS: MANUAL DIFF FLAG NO
[2023-04-25 06:59] LABS: Basophils Absolute Auto 0.1 X10*3/uL (0.0-0.2); Basophils Percent Auto 0.6 % (0-2); Eosinophils Absolute Auto 0.3 X10*3/uL (0.0-0.4); Eosinophils Percent Auto 3.5 % (0-4); Hemoglobin 8.3 g/dl (12.0-16.0); Imm Gran Abs Auto 0.14 X10*3/uL (0.00-0.03); Imm Gran Pct Auto 1.5 % (0.0-0.4); Lymphocytes Absolute Auto 1.6 X10*3/uL (1.2-4.9); Lymphocytes Percent Auto 16.8 % (20-40); Mean Corpuscular HGB Conc 28.6 g/dl (31.0-35.0); Mean Corpuscular Hemoglobin 24.3 pg (27.0-33.0); Mean Corpuscular Volume 84.8 fL (80.0-98.0); Mean Platelet Volume 11.9 fL (9.4-12.3); Monocytes Absolute Auto 1.1 X10*3/uL (0.1-1.2); Neutrophils Absolute Auto 6.4 x10*3/uL (2.0-8.3); Neutrophils Percent Auto 66.6 % (45-73); Platelet Count 220 X10*3/uL (160-400); Red Blood Count 3.42 X10*6/uL (4.20-5.50); Red Cell Distribution Width 14.4 % (11.0-16.0); White Blood Count 9.6 X10*3/uL (4.8-10.8)
[2023-04-25 07:25] LABS: Alanine Aminotransferase 6 U/L (0-31); Albumin Level 2.6 g/dL (3.5-5.0); Alkaline Phosphatase 64 U/L (39-117); Anion Gap 12 (12-20); Aspartate Amino Transferase 9 U/L (5-31); Bilirubin Total 0.2 mg/dL (0.0-1.0); Blood Urea Nitrogen 33 mg/dL (9-16); Calcium 8.2 mg/dL (8.4-10.2); Carbon Dioxide 28 mmol/L (22-29); Chloride 98 mmol/L (96-108); Estimated Glomerular Filt Rate 26; Potassium 4.2 mmol/L (3.3-5.1); Sodium 134 mmol/L (135-145); Total Protein 5.8 g/dL (6.5-8.0)
[2023-04-25 08:14] LABS: Glucose Random 558 mg/dL (60-115)
== END 2023-04-25 06:37 | disposition home or self-care (01) ==
LOC: HO.MMNH2L 06:36
PROVIDERS: Visit Provider Family Medicine
DX: N18.9 Chronic kidney disease, unspecified (principal)
CPT/HCPCS: 36415; 80053; 85025

== ENCOUNTER 2023-04-26 14:30 | Emergency (ER) | payer MEDICARE, MEDICAID, SELFPAY ==
--- NOTE | ~2023-04-26 | XR_ITS ---
EXAMINATION: XR CHEST CLINICAL INFORMATION: type access port COMPARISON: Chest radiograph 02/20/2023 TECHNIQUE: One view of the chest FINDINGS: Lines and tubes: EKG leads overlie the patient. Right internal jugular central venous catheter tip terminates overlying the mid SVC. Interval improvement in patchy left retrocardiac consolidation which may reflect improving infection or atelectasis. Asymmetrically increased right interstitial opacities with prominence of the central pulmonary vasculature similar to prior may reflect asymmetric pulmonary edema. No pleural effusion. No pneumothorax. Cardiac silhouette is mildly enlarged unchanged. Mitral annular calcification. Calcification of the thoracic aorta unchanged. XR/XR chest 1V IMPRESSION: 1. Right internal jugular central venous catheter tip terminates overlying the mid SVC. 2. Interval improvement in patchy left retrocardiac consolidation which may reflect improving infection or atelectasis. 3. Asymmetrically increased right interstitial opacities with prominence of the central pulmonary vasculature similar to prior may reflect asymmetric pulmonary edema. 4. Cardiac silhouette is mildly enlarged unchanged.
--- NOTE | 2023-04-26 14:42 | ECG_ITS ---
Test Reason : FATIGUE Blood Pressure : / mmHG Vent. Rate : 077 BPM Atrial Rate : 077 BPM P-R Int : 200 ms QRS Dur : 112 ms QT Int : 426 ms P-R-T Axes : 068 074 003 degrees QTc Int : 482 ms Normal sinus rhythm Normal ECG When compared with ECG of 14-FEB-2023 19:28, No significant change was found Referred By: Adeline Espino Electronically Signed By:Kenji Green
--- NOTE | 2023-04-26 14:43 | ED_ITS ---
HPI - General Adult General Chief complaint: General Medical Stated complaint: HIGH BS FROM SNF PER EMS Time Seen by Provider: 04/26/23 14:32 Source: EMS Mode of arrival: EMS Limitations: altered mental status History of Present Illness HPI narrative: Patient comes to the emergency room via ambulance from [facility]. According to the staff, the patient has had multiple glucose checks reading more than 400. According to EMS, the patient got insulin this morning, then at lunch got 10 units. When EMS brought the patient, they noted that the glucose read as ?high?. Here in the ED, patient's glucose is 458. Patient is awake, alert, seems a bit lethargic, states she has no complaints. Denies any chest pain shortness of breath abdominal pain or UTI symptoms. Related Data Home Medications Medication Instructions Recorded Confirmed chlordiazepoxide HCl 10 mg capsule 10 mg PO BEDTIME 10/08/21 04/26/23 citalopram 20 mg tablet 20 mg PO DAILY 10/08/21 04/26/23 insulin lispro protamine-lispro 0 unit subcut QIDACHS 10/08/21 04/26/23 100 unit/mL (75-25) subcutaneous pen levothyroxine 175 mcg tablet 175 mcg PO DAILY@0600 10/08/21 04/26/23 simvastatin 20 mg tablet 20 mg PO BEDTIME 10/08/21 04/26/23 sitagliptin phosphate 100 mg 100 mg PO DAILY 10/08/21 04/26/23 tablet (Januvia) latanoprost 0.005 % eye drops 1 drp ophthalmic (eye) BEDTIME 11/20/21 04/26/23 albuterol sulfate 0.63 mg/3 mL 0.63 mg inhalation Q2H PRN 02/16/22 04/26/23 solution for nebulization Shortness Of Breath Or Wheezing brinzolamide 1 %-brimonidine 0.2 % 1 drp ophthalmic-Right BID 02/16/22 04/26/23 eye drops,suspension (Simbrinza) [id number] 1 tab PO Q6H PRN Headache 02/16/22 04/26/23 50 mg-325 mg-40 mg tablet coenzyme Q10 100 mg capsule 150 mg PO DAILY 02/16/22 04/26/23 (CoQ-10) melatonin 5 mg tablet 5 mg PO BEDTIME 02/16/22 04/26/23 prednisolone acetate 1 % eye 1 drp ophthalmic-Right DAILY 02/16/22 04/26/23 drops,suspension timolol maleate 0.5 % eye drops 1 drp ophthalmic-Right BID 02/16/22 04/26/23 carboxymethylcellulose sodium 1 % 1 drp ophthalmic (eye) BID 03/15/22 04/26/23 eye drops (Artificial Tears (carboxymethylcellulose)) budesonide-formoterol HFA 160 2 puff inhalation BID 04/27/22 04/26/23 mcg-4.5 mcg/actuation aerosol inhaler (Symbicort) umeclidinium 62.5 mcg/actuation 1 inh inhalation DAILY 04/27/22 04/26/23 blister powder for inhalation (Incruse Ellipta) guaifenesin 600 mg tablet, 600 mg PO BID cough 06/08/22 04/26/23 extended release 12 hr sodium phosphates 19 gram-7 118 ml PA DAILY PRN Constipation 06/08/22 04/26/23 gram/118 mL enema (Fleet Enema) levalbuterol HCl 1.25 mg/3 mL 1.25 mg inhalation QID 07/30/22 04/26/23 solution for nebulization biotin 5 mg tablet 5 mg PO DAILY 08/11/22 04/26/23 bisacodyl 10 mg rectal suppository 10 mg PA DAILY PRN Constipation 08/11/22 04/26/23 hydroxychloroquine 200 mg tablet 200 mg PO BID 08/11/22 04/26/23 hydroxyzine HCl 25 mg tablet 25 mg PO DAILY 08/11/22 04/26/23 lorazepam 0.5 mg tablet 0.5 mg PO BID Anxiety 08/11/22 04/26/23 magnesium 200 mg tablet 200 mg PO DAILY 08/11/22 04/26/23 riboflavin (vitamin B2) 400 mg 400 mg PO DAILY 08/11/22 04/26/23 tablet prednisone 1 mg tablet 6 mg PO DAILY 10/27/22 04/26/23 Lactobacillus acidophilus 1 tab PO BID 02/14/23 04/26/23 (Acidophilus chewable tablet) bumetanide 1 mg tablet 2 mg PO BID@0800,1700 04/26/23 04/26/23 diphenhydramine-zinc acetate 2 1 appl topical QSHIFT 04/26/23 04/26/23 %-0.1 % topical cream loperamide 2 mg capsule 2 mg PO Q4H PRN Loose Stool 04/26/23 04/26/23 methenamine hippurate 1 gram tablet 1 g PO BID 04/26/23 04/26/23 nystatin 100,000 unit/gram topical 1 appl topical BID 04/26/23 04/26/23 powder potassium chloride 20 mEq 20 meq PO BEDTIME 04/26/23 04/26/23 tablet,extended release Previous Rx's Medication Instructions Recorded potassium chloride 20 mEq 40 meq (2 x 20 mEq) PO DAILY #30 08/06/22 tablet,extended release(part/cryst) tabs empagliflozin 10 mg tablet 10 mg PO DAILY #30 tabs 02/21/23 (Jardiance) acalabrutinib maleate 100 mg 100 mg PO BID #60 tabs 04/07/23 tablet (Calquence (acalabrutinib maleate)) Allergies Allergy/AdvReac Type Severity Reaction Status Date / Time oxycodone [From Percocet] Allergy Intermediate Rash Verified 04/26/23 14:45 lisinopril Allergy Unknown Unknown Verified 04/26/23 14:45 metoprolol AdvReac Severe bradycardia Verified 04/26/23 14:45 Review of Systems 2 Review of Systems: Constitutional : No Weight loss, No Fever, No Chills, No Night Sweats, No Fatigue, No Malaise ENT/Mouth : No Hearing loss, No Ear Pain, No Nasal Congestion, No Sinus Pain, No Hoarseness, No sore throat, No Rhinorrhea, No Swallowing Difficulty Eyes: No Eye Pain, No Swelling, No Redness, No Foreign Body, No Discharge, No Vision Changes Cardiovascular : No Chest Pain, No SOB, No Dyspnea on Exertion, No Orthopnea, No Edema, No Palpitations Respiratory : No Cough, No Sputum, No Wheezing, No Smoke Exposure, No Dyspnea Gastrointestinal : No Nausea, No Vomiting, No Diarrhea, No Constipation, No abdominal Pain, No Hematochezia, No Melena Genitourinary : no irregular bleeding, No Dysuria, No Urinary Frequency, No Hematuria, No Urinary Incontinence, No Urgency, No Flank Pain, No Urinary Flow Changes, No Hesitancy Musculoskeletal : No joint pain, No Myalgias, No Joint Swelling Skin : No Skin Lesions, No rash Neuro : No Weakness, No Numbness, No Paresthesias, No Loss of Consciousness, No Dizziness, No Headache Psych : No Anxiety/Panic, No Depression, No SI/HI/AH/VH, No Social Issues, Heme/Lymph: No Bruising, No Bleeding,No Lymphadenopathy Endocrine : No Polyuria, No Polydipsia, No Temperature Intolerance, complaining of high glucose [facility] Past Medical History Medical History Congestive heart failure Essential hypertension Acute on chronic heart failure with preserved ejection fraction Acute and chronic respiratory failure with hypoxia (HFpEF) heart failure with preserved ejection fraction Morbid obesity COPD exacerbation CKD (chronic kidney disease) stage 3, GFR 30-59 ml/min LATONYA (obstructive sleep apnea) Anemia Hypoventilation associated with obesity COVID Congestive heart failure Acute respiratory failure with hypoxia Rash Heart block AV second degree Acute UTI Acute kidney injury superimposed on CKD Bradycardia Pleural effusion Acute respiratory failure Pneumonia due to COVID-19 virus Chronic lymphocytic leukemia (CLL), B-cell Dyspnea Congestive heart failure COVID-19 Hypoxia Influenza A CLL (chronic lymphocytic leukemia) Suspected deep tissue injury Klebsiella pneumonia Infection with ESBL Klebsiella oxytoca Lymphadenopathy, mediastinal Pleural effusion Congestive heart failure COVID Lower extremity edema Migraine HTN (hypertension) Pseudotumor cerebri PVD (peripheral vascular disease) Obesity CKD (chronic kidney disease) Diabetes mellitus with insulin therapy Hypothyroidism HLD (hyperlipidemia) Surgical History S/P appendectomy H/O cataract extraction H/O hysterectomy for benign disease Hx of cholecystectomy Family History Family History Mother Heart attack, Onset Age: 92 Father Heart attack, Onset Age: 66 Other Diabetes Social History Social History Household Members: Other Household Members Other:: Assisted living facility Housing: Skilled Nursing Alcohol intake: never Comment: bedrest Patient Tobacco Use Status: Former Tobacco user Smoked in Last 30 Days: No Second Hand Smoke Exposure: No Use of substances other than those prescribed or required for medical reasons: No Advance Directives: Yes Advance Directives on File: Yes Advance Directives Date on File: 09/26/20 service: No Current occupational status: disabled Physical Exam ED Vital Signs: Vital Signs - 24 hr 04/26/23 14:45 04/26/23 15:48 04/26/23 18:49 Temperature 100.1 F 98.4 F Pulse Rate 82 76 69 Respiratory Rate 18 16 20 Blood Pressure 131/32 L 134/48 L 117/40 L Pulse Oximetry 100 100 100 Oxygen Delivery Method Nasal Cannula Room Air Nasal Cannula Oxygen Flow Rate 2 2 BMI result Body Mass Index 40.9 Const Other: Appearance: Alert. No acute distress, answering questions appropriately Eyes: Pupils equal, round and reactive to light. ENT: Pharynx normal. Neck: Normal inspection. Neck supple. No lymph nodes noted. No crepitus CVS: Normal heart rate and rhythm. Pulses normal. Normal S1 and S2 Respiratory: No respiratory distress. Breath sounds normal. No Wheezing. No rales Abdomen: Soft and nontender. No rigidity. No distention. Skin: Skin warm and dry. Normal skin color. Normal skin turgor. Extremities: No lower extremity edema. No Lacerations. No Rash Neuro: Seems weak/fatigue, No sensory deficit. Moving all extremities. No slurred speech. CN 2 through 12 grossly intact Psych: calm, cooperative, normal affect Course Course Course Narrative: -on arrival, patient's glucose was 458. -patient receiving fluids, gentle hydration due to history of CHF, insulin -all of patient's labs pending Medications Administered Discontinued Medications Generic Name Dose Route Start Last Admin Trade Name Freq PRN Reason Stop Dose Admin Sodium Chloride 1,000 mls @ 999 mls/hr 04/26/23 14:42 04/26/23 18:48 Ns IVCONT 04/26/23 15:42 Infused .Q1H1M ONE Infusion Insulin Human Regular 10 unit 04/26/23 14:48 04/26/23 15:44 Insulin Regular, Human 100 Unit/Ml 3 Ml Vial IVPUSH 04/26/23 14:49 10 unit ONCE ONE Administration Medical Decision Making Medical Decision Making [facility] Narrative: My interpretation of labs, hematology at baseline,, pCO2 normal, initial sodium 128, corrected sodium 134 with a glucose of 516, creatinine 2.17 which is elevated from baseline. Anion gap closed, troponin 34.1. -patient was giving IV fluids and insulin, patient's glucose improved normal sinus rhythm, heart rate 77, no ST segment depression or elevation, nonspecific T-wave inversion in lead 3, QTC 482. May return to her facility Differential Diagnosis Differential Diagnoses: The differential diagnosis associated with the presentation includes (Hyperglycemia, dehydration) Admission/Observation Consideration of admission/observation: Escalation of care including admission/observation considered (Given patient's initial chemistry results, admission was considered.) Lab Data MDM Lab Attestation statement: I reviewed the patient's lab results. 04/26/23 15:08 04/26/23 19:16 Labs: Lab Results 04/26/23 04/26/23 04/26/23 Range/Units 14:44 15:08 15:14 WBC 14.4 H (4.8-10.8) X10*3/uL RBC 3.73 L (4.20-5.50) X10*6/uL Hgb 8.9 L (12.0-16.0) g/dl Hct 30.3 L (37.0-47.0) % MCV 81.2 (80.0-98.0) fL MCH 23.9 L (27.0-33.0) pg MCHC 29.4 L (31.0-35.0) g/dl RDW 14.5 (11.0-16.0) % Plt Count 239 (160-400) X10*3/uL MPV 11.2 (9.4-12.3) fL Immature Gran % (Auto) 0.9 H (0.0-0.4) % Neut % (Auto) 84.1 H (45-73) % Lymph % (Auto) 5.8 L (20-40) % [place] % (Auto) 6.5 (2-11) % Eos % (Auto) 2.4 (0-4) % Baso % (Auto) 0.3 (0-2) % Lymph # (Auto) 0.8 L (1.2-4.9) X10*3/uL [place] # (Auto) 0.9 (0.1-1.2) X10*3/uL Eos # (Auto) 0.3 (0.0-0.4) X10*3/uL Baso # (Auto) 0.0 (0.0-0.2) X10*3/uL Abs Immat Gran (auto) 0.13 H (0.00-0.03) X10*3/uL Absolute Neuts (auto) 12.1 H (2.0-8.3) x10*3/uL Absolute Nucleated RBC 0.000 (0.0-0.012) X10*3/uL Nucleated RBC % (auto) 0.0 (0.0-0.2) /100WBC VBG pH 7.53 H (7.32-7.43) VBG pCO2 27 mmHg VBG pO2 106 mmHg VBG HCO3 23 (22-26) mmol/L VBG O2 Saturation 99.0 % VBG Base Excess 1.3 mmol/L Sodium 128 L (135-145) mmol/L Potassium 4.7 (3.3-5.1) mmol/L Chloride 94 L (96-108) mmol/L Carbon Dioxide 25 (22-29) mmol/L Anion Gap 14 (12-20) BUN 33 H (9-16) mg/dL Creatinine 2.17 H (0.5-1.4) mg/dL Estim Creat Clear Calc 27.1 Estimated GFR 22 POC Glucose 458 H* (60-115) mg/dL Random Glucose 516 H* (60-115) mg/dL Lactic Acid 2.9 H* (0.5-2.0) mmol/L Lactic Acid F/U @ 2Hr (0.5-2.0) mmol/L Calcium 8.6 (8.4-10.2) mg/dL Magnesium 2.1 (1.6-2.6) mg/dL Total Bilirubin 0.2 (0.0-1.0) mg/dL Direct Bilirubin < 0.2 (0.0-0.5) mg/dL AST 8 (5-31) U/L ALT 8 (0-31) U/L Alkaline Phosphatase 73 (39-117) U/L Troponin I High Sens 34.1 H D (<3.5-17.0) ng/L Total Protein 6.4 L (6.5-8.0) g/dL Albumin 2.9 L (3.5-5.0) g/dL Lipase 21 (8-78) U/L Beta-Hydroxybutyrate 0.07 (0.02-0.27) mmol/L 04/26/23 04/26/23 Range/Units 16:29 19:16 WBC (4.8-10.8) X10*3/uL RBC (4.20-5.50) X10*6/uL Hgb (12.0-16.0) g/dl Hct (37.0-47.0) % MCV (80.0-98.0) fL MCH (27.0-33.0) pg MCHC (31.0-35.0) g/dl RDW (11.0-16.0) % Plt Count (160-400) X10*3/uL MPV (9.4-12.3) fL Immature Gran % (Auto) (0.0-0.4) % Neut % (Auto) (45-73) % Lymph % (Auto) (20-40) % [place] % (Auto) (2-11) % Eos % (Auto) (0-4) % Baso % (Auto) (0-2) % Lymph # (Auto) (1.2-4.9) X10*3/uL [place] # (Auto) (0.1-1.2) X10*3/uL Eos # (Auto) (0.0-0.4) X10*3/uL Baso # (Auto) (0.0-0.2) X10*3/uL Abs Immat Gran (auto) (0.00-0.03) X10*3/uL Absolute Neuts (auto) (2.0-8.3) x10*3/uL Absolute Nucleated RBC (0.0-0.012) X10*3/uL Nucleated RBC % (auto) (0.0-0.2) /100WBC VBG pH (7.32-7.43) VBG pCO2 mmHg VBG pO2 mmHg VBG HCO3 (22-26) mmol/L VBG O2 Saturation % VBG Base Excess mmol/L Sodium 133 L (135-145) mmol/L Potassium 5.6 H (3.3-5.1) mmol/L Chloride 99 (96-108) mmol/L Carbon Dioxide 25 (22-29) mmol/L Anion Gap 15 (12-20) BUN 32 H (9-16) mg/dL Creatinine 1.76 H (0.5-1.4) mg/dL Estim Creat Clear Calc 33.4 Estimated GFR 28 POC Glucose 313 H (60-115) mg/dL Random Glucose 286 H (60-115) mg/dL Lactic Acid (0.5-2.0) mmol/L Lactic Acid F/U @ 2Hr 1.3 (0.5-2.0) mmol/L Calcium 8.3 L (8.4-10.2) mg/dL Magnesium (1.6-2.6) mg/dL Total Bilirubin (0.0-1.0) mg/dL Direct Bilirubin (0.0-0.5) mg/dL AST (5-31) U/L ALT (0-31) U/L Alkaline Phosphatase (39-117) U/L Troponin I High Sens 30.9 H (<3.5-17.0) ng/L Total Protein (6.5-8.0) g/dL Albumin (3.5-5.0) g/dL Lipase (8-78) U/L Beta-Hydroxybutyrate (0.02-0.27) mmol/L Independent Interpretation I performed an independent interpretation of an: EKG Radiology Impression Discussion of test interpretation with radiology: I have reviewed the radiologist's reading. Radiologist Impression: 1. Right internal jugular central venous catheter tip terminates overlying the mid SVC. 2. Interval improvement in patchy left retrocardiac consolidation which may reflect improving infection or atelectasis. 3. Asymmetrically increased right interstitial opacities with prominence of the central pulmonary vasculature similar to prior may reflect asymmetric pulmonary edema. 4. Cardiac silhouette is mildly enlarged unchanged. Independent Historian Clinical information obtained from an independent historian. History obtained from or confirmed by: EMS Critical Care Time Critical Care Time Critical Care Time: Yes Total Critical Care Time: 60 Attestation: I have personally provided critical care time. Time includes review of lab data, radiology results, discussion with consultants, and monitoring for potential decompensation. Intervention performed as documented. Discharge Plan Discharge Clinical Impression: Acute hyperglycemia, LEO (acute kidney injury), Acute dehydration Patient Disposition: Home, Self-Care Instructions: Diabetic Hyperglycemia (ED), Dehydration (ED) Additional Instructions: Please follow-up with your primary care physician tomorrow. If you have any worsening or new symptoms, please return to the emergency room or call 911 Prescriptions: No Action levothyroxine 175 mcg tablet 175 mcg PO DAILY@0600 citalopram 20 mg tablet 20 mg PO DAILY simvastatin 20 mg tablet 20 mg PO BEDTIME chlordiazepoxide HCl 10 mg capsule 10 mg PO BEDTIME insulin lispro protamin-lispro 100 unit/mL (75-25) insulin pen 0 unit subcut QIDACHS Protocol: Insulin Correction Scale Less than or equal to 110 ---- Give (units): 0 111 to 150 Give (units): 0 151 to 200 Give (units): 2 201 to 250 Give (units): 4 251 to 300 Give (units): 6 301 to 350 Give (units): 8 Greater than 350 Give (units): 10 Call MD if Blood Glucose > : 350 Januvia 100 mg tablet 100 mg PO DAILY Fleet Enema 19-7 gram/118 mL Enema 118 ml PA DAILY PRN (Reason: Constipation) guaifenesin 600 mg Tablet Extended Release 12hr 600 mg PO BID lorazepam 0.5 mg tablet 0.5 mg PO BID bisacodyl 10 mg Suppository 10 mg PA DAILY PRN (Reason: Constipation) hydroxyzine HCl 25 mg tablet 25 mg PO DAILY hydroxychloroquine 200 mg tablet 200 mg PO BID magnesium 200 mg Tablet 200 mg PO DAILY biotin 5 mg Tablet 5 mg PO DAILY riboflavin (vitamin B2) 400 mg Tablet 400 mg PO DAILY Incruse Ellipta 62.5 mcg/actuation Blister With Device 1 inh INHALATION DAILY budesonide-formoterol [Symbicort] 160-4.5 mcg/actuation Hfa Aerosol Inhaler 2 puff INHALATION BID latanoprost 0.005 % drops 1 drp ophthalmic (eye) BEDTIME Rx Instructions: 1 drop into both eyes albuterol sulfate 0.63 mg/3 mL Solution For Nebulization 0.63 mg INHALATION Q2H PRN (Reason: Shortness Of Breath Or Wheezing) [id number] 50-325-40 mg tablet 1 tab PO Q6H PRN (Reason: Headache) prednisolone acetate 1 % drops,suspension 1 drp ophthalmic-Right DAILY timolol maleate 0.5 % drops 1 drp ophthalmic-Right BID coenzyme Q10 [CoQ-10] 100 mg Capsule 150 mg PO DAILY melatonin 5 mg Tablet 5 mg PO BEDTIME Simbrinza 1-0.2 % drops,suspension 1 drp ophthalmic-Right BID Artificial Tears (cmc) 1 % Drops 1 drp OPHTHALMIC (EYE) BID Acidophilus Tablet,Chewable 1 tab PO BID Jardiance 10 mg Tablet 10 mg PO DAILY Qty: 30 0RF Calquence (acalabrutinib mal) 100 mg tablet 100 mg PO BID Qty: 60 6RF loperamide 2 mg Capsule 2 mg PO Q4H PRN (Reason: Loose Stool) Rx Instructions: administer after each loose stool until symptoms controlled; do not exceed 8 mg per 24 hrs diphenhydramine-zinc acetate 2-0.1 % Cream 1 appl TOPICAL QSHIFT methenamine hippurate 1 gram Tablet 1 g PO BID nystatin 100,000 unit/gram Powder 1 appl TOPICAL BID potassium chloride 20 mEq Tablet Extended Release 20 meq PO BEDTIME bumetanide 1 mg tablet 2 mg PO BID@0800,1700 Protocol: Hold for SBP< HOLD for SBP < : 90 levalbuterol HCl 1.25 mg/3 mL Solution For Nebulization 1.25 mg INHALATION QID potassium chloride 20 mEq Tablet,Er Particles/Crystals 40 meq PO DAILY Qty: 30 0RF prednisone 1 mg Tablet 6 mg PO DAILY
[2023-04-26 14:45] VITALS: BP 131/32; PULSE 82; RESP 18; TEMP 37.8; O2SAT 100; BMI 40.9
[2023-04-26 14:49] LABS: Glucose, Whole Blood 458 mg/dL (60-115)
--- NOTE | 2023-04-26 15:04 | PC.NURSE ---
patient a&ox3, pvc monitor applied, vss, pt states they have a port and would like the port accessed for medications/ivf, provider notified- cxr ordered to see what type of port pt has, family at bedside-pt denies pain/discomfort, poc obtained, will continue to monitor
[2023-04-26 15:15] LABS: MANUAL DIFF FLAG NO
[2023-04-26 15:20] LABS: Venous Blood Gas Refer to POC result
[2023-04-26 15:20] LABS: VBG Base Excess 1.3 mmol/L; VBG HCO3 23 mmol/L (22-26); VBG pCO2 27 mmHg; VBG pH 7.53 (7.32-7.43); VBG pO2 106 mmHg
[2023-04-26 15:26] LABS: Basophils Percent Auto 0.3 % (0-2); Eosinophils Absolute Auto 0.3 X10*3/uL (0.0-0.4); Eosinophils Percent Auto 2.4 % (0-4); Hematocrit 30.3 % (37.0-47.0); Hemoglobin 8.9 g/dl (12.0-16.0); Imm Gran Abs Auto 0.13 X10*3/uL (0.00-0.03); Imm Gran Pct Auto 0.9 % (0.0-0.4); Lymphocytes Absolute Auto 0.8 X10*3/uL (1.2-4.9); Lymphocytes Percent Auto 5.8 % (20-40); Mean Corpuscular HGB Conc 29.4 g/dl (31.0-35.0); Mean Corpuscular Hemoglobin 23.9 pg (27.0-33.0); Mean Corpuscular Volume 81.2 fL (80.0-98.0); Mean Platelet Volume 11.2 fL (9.4-12.3); Monocytes Absolute Auto 0.9 X10*3/uL (0.1-1.2); Monocytes Percent Auto 6.5 % (2-11); Neutrophils Absolute Auto 12.1 x10*3/uL (2.0-8.3); Neutrophils Percent Auto 84.1 % (45-73); Platelet Count 239 X10*3/uL (160-400); Red Blood Count 3.73 X10*6/uL (4.20-5.50); Red Cell Distribution Width 14.5 % (11.0-16.0); White Blood Count 14.4 X10*3/uL (4.8-10.8)
[2023-04-26 15:30] LABS: Lactic Acid 2.9 mmol/L (0.5-2.0)
[2023-04-26 15:31] LABS: Beta-Hydroxybutyrate 0.07 mmol/L (0.02-0.27)
[2023-04-26 15:39] LABS: Troponin-I High Sensitivity 34.1 ng/L (<3.5-17.0)
[2023-04-26 15:40] LABS: Alanine Aminotransferase 8 U/L (0-31); Albumin Level 2.9 g/dL (3.5-5.0); Alkaline Phosphatase 73 U/L (39-117); Anion Gap 14 (12-20); Aspartate Amino Transferase 8 U/L (5-31); Bilirubin Direct < 0.2 mg/dL (0.0-0.5); Bilirubin Total 0.2 mg/dL (0.0-1.0); Blood Urea Nitrogen 33 mg/dL (9-16); Calcium 8.6 mg/dL (8.4-10.2); Carbon Dioxide 25 mmol/L (22-29); Chloride 94 mmol/L (96-108); Creatinine Clr Calc Pharmacy 27.1; Estimated Glomerular Filt Rate 22; Glucose Random 516 mg/dL (60-115); Lipase 21 U/L (8-78); Magnesium 2.1 mg/dL (1.6-2.6); Potassium 4.7 mmol/L (3.3-5.1); Sodium 128 mmol/L (135-145); Total Protein 6.4 g/dL (6.5-8.0)
[2023-04-26] MEDS: Insulin Regular, Human 100 UNIT/ML 3 ML VIAL 10 UNIT IVPUSH (15:44)
[2023-04-26] MEDS: 0.9 % Sodium Chloride 1,000 ML 999 ML IVCONT (15:45)
[2023-04-26 15:48] VITALS: BP 134/48; PULSE 76; RESP 16; O2SAT 100
--- NOTE | 2023-04-26 15:50 | PC.NURSE ---
rt chest port intact/came in with it accessed, pt ivf hung, pt medicated with insulin per order, phlebotomy to obtain 2nd set of blood cultures, will continue to monitor
[2023-04-26 16:36] LABS: Glucose, Whole Blood 313 mg/dL (60-115)
--- NOTE | 2023-04-26 16:37 | PHA.MEDREC ---
Pharmacy Consult ? Medication Reconciliation Pharmacy has completed the medication reconciliation. Confirmed patient medications from facilities list ([facility]) Ree lucio CPhT
[2023-04-26 17:13] LABS: Reflex Lactate? Lactic Acid Added
[2023-04-26 18:49] VITALS: BP 117/40; PULSE 69; RESP 20; TEMP 36.9; O2SAT 100
[2023-04-26 19:33] LABS: ~Lactic Acid-LAB USE ONLY 1.3 mmol/L (0.5-2.0)
[2023-04-26 19:44] LABS: Troponin-I High Sensitivity 30.9 ng/L (<3.5-17.0)
[2023-04-26 19:46] LABS: Anion Gap 15 (12-20); Blood Urea Nitrogen 32 mg/dL (9-16); Calcium 8.3 mg/dL (8.4-10.2); Carbon Dioxide 25 mmol/L (22-29); Chloride 99 mmol/L (96-108); Creatinine Clr Calc Pharmacy 33.4; Estimated Glomerular Filt Rate 28; Glucose Random 286 mg/dL (60-115); Potassium 5.6 mmol/L (3.3-5.1); Sodium 133 mmol/L (135-145)
[2023-04-26 21:00] VITALS: BP 124/46; PULSE 70; RESP 14; TEMP 37.1; O2SAT 100
--- NOTE | 2023-04-26 21:20 | PC.NURSE ---
This health underwriter assumed care of this Pt at 1900. Pt A&Ox3, denies any pain. Incontinent care provided. Pt will be transported back to [facility] via ambulance. Nurse to nurse given to Mayra. Pt and family aware of plan.
== END 2023-04-26 22:00 | disposition home or self-care (01) ==
PROVIDERS: Emergency Provider Emergency Medicine; PCP Internal Medicine
DX: E11.65 Type 2 diabetes mellitus with hyperglycemia (principal); N17.9 Acute kidney failure, unspecified; E86.0 Dehydration; N39.0 Urinary tract infection, site not specified; B96.1 Klebsiella pneumoniae [K. pneumoniae] as the cause of diseases classified elsewhere
CPT/HCPCS: 36415; 71045; 80048; 80076; 82010; 82803; 82947; 83605; 83690; 83735; 84484; 85025; 87040; 87077; 87186; 87205; 93005; 96361; 96374; 99284; 99285

== ENCOUNTER → 2023-04-26 14:42 | Outpatient (BNV) | payer MEDICARE, MEDICAID, SELFPAY | PROVIDERS: Emergency Provider Emergency Medicine; PCP Internal Medicine; Visit Provider Internal Medicine Cardiovascular Disease | DX: R53.83 Other fatigue (principal) | CPT/HCPCS: 93010 ==

== ENCOUNTER 2023-05-02 06:29 | Outpatient (REF) | payer MEDICARE, MEDICAID, SELFPAY ==
[2023-05-02 07:19] LABS: Basophils Absolute Auto 0.1 X10*3/uL (0.0-0.2); Basophils Percent Auto 0.5 % (0-2); Eosinophils Absolute Auto 0.1 X10*3/uL (0.0-0.4); Eosinophils Percent Auto 0.3 % (0-4); Hematocrit 28.4 % (37.0-47.0); Hemoglobin 8.3 g/dl (12.0-16.0); Imm Gran Abs Auto 0.15 X10*3/uL (0.00-0.03); Imm Gran Pct Auto 0.9 % (0.0-0.4); Lymphocytes Absolute Auto 2.4 X10*3/uL (1.2-4.9); Lymphocytes Percent Auto 13.8 % (20-40); MANUAL DIFF FLAG SCAN; Mean Corpuscular HGB Conc 29.2 g/dl (31.0-35.0); Mean Corpuscular Hemoglobin 23.9 pg (27.0-33.0); Mean Corpuscular Volume 81.6 fL (80.0-98.0); Mean Platelet Volume 11.7 fL (9.4-12.3); Monocytes Absolute Auto 1.7 X10*3/uL (0.1-1.2); Monocytes Percent Auto 9.7 % (2-11); Neutrophils Percent Auto 74.8 % (45-73); Platelet Count 287 X10*3/uL (160-400); Red Blood Count 3.48 X10*6/uL (4.20-5.50); Red Cell Distribution Width 14.8 % (11.0-16.0); SCAN SMEAR FLAG 1; White Blood Count 17.4 X10*3/uL (4.8-10.8)
[2023-05-02 07:41] LABS: Alanine Aminotransferase 8 U/L (0-31); Albumin Level 2.6 g/dL (3.5-5.0); Alkaline Phosphatase 70 U/L (39-117); Anion Gap 14 (12-20); Aspartate Amino Transferase 9 U/L (5-31); Bilirubin Total 0.2 mg/dL (0.0-1.0); Blood Urea Nitrogen 34 mg/dL (9-16); Calcium 8.7 mg/dL (8.4-10.2); Carbon Dioxide 27 mmol/L (22-29); Chloride 96 mmol/L (96-108); Estimated Glomerular Filt Rate 28; Potassium 3.3 mmol/L (3.3-5.1); Sodium 134 mmol/L (135-145); Total Protein 5.9 g/dL (6.5-8.0)
[2023-05-02 07:55] LABS: Glucose Random 56 mg/dL (60-115)
[2023-05-02 08:37] LABS: SLIDE REVIEW VERIFIED
== END 2023-05-02 06:30 | disposition home or self-care (01) ==
LOC: HO.MMNH2L 06:29
PROVIDERS: Visit Provider Family Medicine
DX: N18.9 Chronic kidney disease, unspecified (principal)
CPT/HCPCS: 36415; 80053; 85025

== ENCOUNTER 2023-05-03 20:21 | Emergency (ER) | payer MEDICARE, MEDICAID, SELFPAY ==
[2023-05-03 20:40] VITALS: BP 132/78; BP 133/51; PULSE 77; RESP 16; TEMP 37; O2SAT 100; BMI 39.7
[2023-05-03 21:14] LABS: Hematocrit 29.7 % (37.0-47.0); Monocytes Absolute Auto 0.9 X10*3/uL (0.1-1.2); PLT CLUMP 1; SCAN SMEAR FLAG 1
[2023-05-03 21:16] LABS: Basophils Percent Auto 0.4 % (0-2); Eosinophils Absolute Auto 0.2 X10*3/uL (0.0-0.4); Imm Gran Abs Auto 0.09 X10*3/uL (0.00-0.03); Imm Gran Pct Auto 0.9 % (0.0-0.4); Lactic Acid 1.5 mmol/L (0.5-2.0); Lymphocytes Absolute Auto 0.9 X10*3/uL (1.2-4.9); Lymphocytes Percent Auto 8.8 % (20-40); MANUAL DIFF FLAG SCAN; Mean Corpuscular HGB Conc 30.3 g/dl (31.0-35.0); Mean Corpuscular Hemoglobin 24.3 pg (27.0-33.0); Mean Corpuscular Volume 80.1 fL (80.0-98.0); Mean Platelet Volume 11.8 fL (9.4-12.3); Monocytes Percent Auto 9.1 % (2-11); Neutrophils Absolute Auto 7.7 x10*3/uL (2.0-8.3); Neutrophils Percent Auto 78.8 % (45-73); Red Blood Count 3.71 X10*6/uL (4.20-5.50); Red Cell Distribution Width 14.5 % (11.0-16.0)
--- NOTE | 2023-05-03 21:18 | ED.RECABL ---
HPI - Recheck/Abnormal Lab/Rx General Chief Complaint: Recheck/Abnormal Lab/Rx Stated Complaint: ABNORMAL LABS Time Seen by Provider: 05/03/23 20:31 Source: patient and EMS Mode of arrival: EMS Limitations: no limitations History of Present Illness HPI narrative: Patient is a 73-year-old female who presents to the emergency department via EMS from [facility], she states that her niece called her and told her that she received a call from the hospital advised her to return because she had positive blood cultures. Patient is noted to have Chavez device to right anterior chest, she states that this was put in a few months ago so that she may receive IV antibiotics, she states it has not been in use recently. She reports ?I think they tried to get blood from a week ago but I do not think they were able to?. Related Data Home Medications Medication Instructions Recorded Confirmed chlordiazepoxide HCl 10 mg capsule 10 mg PO BEDTIME 10/08/21 04/26/23 citalopram 20 mg tablet 20 mg PO DAILY 10/08/21 04/26/23 insulin lispro protamine-lispro 0 unit subcut QIDACHS 10/08/21 04/26/23 100 unit/mL (75-25) subcutaneous pen levothyroxine 175 mcg tablet 175 mcg PO DAILY@0600 10/08/21 04/26/23 simvastatin 20 mg tablet 20 mg PO BEDTIME 10/08/21 04/26/23 sitagliptin phosphate 100 mg 100 mg PO DAILY 10/08/21 04/26/23 tablet (Januvia) latanoprost 0.005 % eye drops 1 drp ophthalmic (eye) BEDTIME 11/20/21 04/26/23 albuterol sulfate 0.63 mg/3 mL 0.63 mg inhalation Q2H PRN 02/16/22 04/26/23 solution for nebulization Shortness Of Breath Or Wheezing brinzolamide 1 %-brimonidine 0.2 % 1 drp ophthalmic-Right BID 02/16/22 04/26/23 eye drops,suspension (Simbrinza) erecmggifd-pbvoczgdvyetk-xwobekxf 1 tab PO Q6H PRN Headache 02/16/22 04/26/23 50 mg-325 mg-40 mg tablet coenzyme Q10 100 mg capsule 150 mg PO DAILY 02/16/22 04/26/23 (CoQ-10) melatonin 5 mg tablet 5 mg PO BEDTIME 02/16/22 04/26/23 prednisolone acetate 1 % eye 1 drp ophthalmic-Right DAILY 02/16/22 04/26/23 drops,suspension timolol maleate 0.5 % eye drops 1 drp ophthalmic-Right BID 02/16/22 04/26/23 carboxymethylcellulose sodium 1 % 1 drp ophthalmic (eye) BID 03/15/22 04/26/23 eye drops (Artificial Tears (carboxymethylcellulose)) budesonide-formoterol HFA 160 2 puff inhalation BID 04/27/22 04/26/23 mcg-4.5 mcg/actuation aerosol inhaler (Symbicort) umeclidinium 62.5 mcg/actuation 1 inh inhalation DAILY 04/27/22 04/26/23 blister powder for inhalation (Incruse Ellipta) guaifenesin 600 mg tablet, 600 mg PO BID cough 06/08/22 04/26/23 extended release 12 hr sodium phosphates 19 gram-7 118 ml MO DAILY PRN Constipation 06/08/22 04/26/23 gram/118 mL enema (Fleet Enema) levalbuterol HCl 1.25 mg/3 mL 1.25 mg inhalation QID 07/30/22 04/26/23 solution for nebulization biotin 5 mg tablet 5 mg PO DAILY 08/11/22 04/26/23 bisacodyl 10 mg rectal suppository 10 mg MO DAILY PRN Constipation 08/11/22 04/26/23 hydroxychloroquine 200 mg tablet 200 mg PO BID 08/11/22 04/26/23 hydroxyzine HCl 25 mg tablet 25 mg PO DAILY 08/11/22 04/26/23 lorazepam 0.5 mg tablet 0.5 mg PO BID Anxiety 08/11/22 04/26/23 magnesium 200 mg tablet 200 mg PO DAILY 08/11/22 04/26/23 riboflavin (vitamin B2) 400 mg 400 mg PO DAILY 08/11/22 04/26/23 tablet prednisone 1 mg tablet 6 mg PO DAILY 10/27/22 04/26/23 Lactobacillus acidophilus 1 tab PO BID 02/14/23 04/26/23 (Acidophilus chewable tablet) bumetanide 1 mg tablet 2 mg PO BID@0800,1700 04/26/23 04/26/23 diphenhydramine-zinc acetate 2 1 appl topical QSHIFT 04/26/23 04/26/23 %-0.1 % topical cream loperamide 2 mg capsule 2 mg PO Q4H PRN Loose Stool 04/26/23 04/26/23 methenamine hippurate 1 gram tablet 1 g PO BID 04/26/23 04/26/23 nystatin 100,000 unit/gram topical 1 appl topical BID 04/26/23 04/26/23 powder potassium chloride 20 mEq 20 meq PO BEDTIME 04/26/23 04/26/23 tablet,extended release Previous Rx's Medication Instructions Recorded potassium chloride 20 mEq 40 meq (2 x 20 mEq) PO DAILY #30 08/06/22 tablet,extended release(part/cryst) tabs empagliflozin 10 mg tablet 10 mg PO DAILY #30 tabs 02/21/23 (Jardiance) acalabrutinib maleate 100 mg 100 mg PO BID #60 tabs 04/07/23 tablet (Calquence (acalabrutinib maleate)) Allergies Allergy/AdvReac Type Severity Reaction Status Date / Time oxycodone [From Percocet] Allergy Intermediate Rash Verified 04/26/23 14:45 lisinopril Allergy Unknown Unknown Verified 04/26/23 14:45 metoprolol AdvReac Severe bradycardia Verified 04/26/23 14:45 Review of Systems Review of Systems: Yes all other systems are reviewed and are negative PMFSH Past Medical History Attestation statement: The following information was validated with the patient. Source: old records reviewed Medical History Congestive heart failure Essential hypertension Acute on chronic heart failure with preserved ejection fraction Acute and chronic respiratory failure with hypoxia (HFpEF) heart failure with preserved ejection fraction Morbid obesity COPD exacerbation CKD (chronic kidney disease) stage 3, GFR 30-59 ml/min LATONYA (obstructive sleep apnea) Anemia Hypoventilation associated with obesity COVID Congestive heart failure Acute respiratory failure with hypoxia Rash Heart block AV second degree Acute UTI Acute kidney injury superimposed on CKD Bradycardia Pleural effusion Acute respiratory failure Pneumonia due to COVID-19 virus Chronic lymphocytic leukemia (CLL), B-cell Dyspnea Congestive heart failure COVID-19 Hypoxia Influenza A CLL (chronic lymphocytic leukemia) Suspected deep tissue injury Klebsiella pneumonia Infection with ESBL Klebsiella oxytoca Lymphadenopathy, mediastinal Pleural effusion Congestive heart failure COVID Lower extremity edema Migraine HTN (hypertension) Pseudotumor cerebri PVD (peripheral vascular disease) Obesity CKD (chronic kidney disease) Diabetes mellitus with insulin therapy Hypothyroidism HLD (hyperlipidemia) Surgical History S/P appendectomy H/O cataract extraction H/O hysterectomy for benign disease Hx of cholecystectomy Family History Family History Mother Heart attack, Onset Age: 92 Father Heart attack, Onset Age: 66 Other Diabetes Social History Social History Household Members: Other Household Members Other:: Assisted living facility Housing: [facility] Alcohol intake: never Comment: bedrest Patient Tobacco Use Status: Former Tobacco user Smoked in Last 30 Days: No Second Hand Smoke Exposure: No Use of substances other than those prescribed or required for medical reasons: No Advance Directives: Yes Advance Directives on File: Yes Advance Directives Date on File: 09/26/20 service: No Current occupational status: disabled Physical Exam Vital Signs: Vital Signs: Last Vital Signs Temp 98.6 F 05/03/23 20:40 Pulse 98 05/04/23 00:24 Resp 20 05/04/23 00:24 BP 109/54 L 05/04/23 00:24 Pulse Ox 99 05/04/23 00:24 O2 Del Method Nasal Cannula 05/04/23 00:24 O2 Flow Rate 2 05/04/23 00:24 Oxygen Flow Rate 2 05/03/23 20:40 BMI result Body Mass Index 39.7 Appearance: Alert.?Oriented to person, place and time. No acute distress.?Normal affect. Eyes: Pupils equal, round and reactive to light.? ENT: Pharynx normal.?? Neck: Normal inspection.? Neck supple.?? CVS: Heart sounds normal. Normal heart rate and rhythm.? Pulses normal.??Chavez to right anterior chest Respiratory: No respiratory distress.? Lung sounds clear to auscultation bilaterally?? Abdomen: Soft and non-tender. Normoactive bowel sounds. Skin: Skin warm and dry.? Skin pale? Normal skin turgor.?? Extremities: No lower extremity edema.? No calf ttp? Neuro: Moves all extremities spontaneously. Sensation intact bilaterally. CN II-XII intact. No focal neuro deficits. Course Reevaluation(s) Reevaluation #1: Nursing staff unable to draw back on Chavez to obtain 1 set of blood cultures from this line, though it does flush easily with saline. CBC is without leukocytosis, baseline anemia. Renal function consistent with baseline, sudden level of 132, however corrected secondary to hyperglycemia 136. Do not suspect DKA, patient received insulin lispro 10 units subcutaneous. I did review this case with hospitalist, Dr. Hand, she does not appear toxic at this time, we will consult Infectious Disease for further guidance regarding management at this time. Urinalysis is pending, will obtain via straight catheterization. Time: 21:54 Reevaluation #2: At this time unable to make contact with infectious disease, I did send [place] message to Dr. Chawla [place] does not have phone contact information. I consulted with ED attending Dr. Sutherland, agrees with current work up, repeat blood cultures, single dose ertapenem IV, urinalysis, and discharge back to SNF pending repeat blood cultures, 1/2 +results, clinically does not appear bacteremic with ESBL klebsiella. Time: 23:44 Reevaluation #3: Urinalysis with face microscopic hematuria, 3+ leukocyte esterase and WBCs, however no urine bacteria seen yeast present, do not suspect acute UTI at this time asymptomatic. Culture to be followed. I did receive a response from Infectious Disease, Dr. Archuleta, who also agrees with plan of care, stable for discharge no indication for admission/antibiotics at this time. Time: 01:05 Additional Reevaluation(s): Blood culture one out of two positive. most likely contaminant. Patient was seen yesterday for one positive blood culture and sent back to [facility] Medications Administered Discontinued Medications Generic Name Dose Route Start Last Admin Trade Name Freq PRN Reason Stop Dose Admin Ertapenem 1 gm/ Sodium 50 mls @ 100 mls/hr 05/03/23 20:40 05/03/23 23:10 Chloride IV 05/03/23 21:09 Infused ONCE ONE Infusion Insulin Human Lispro 10 unit 05/03/23 21:33 05/03/23 22:31 Insulin Lispro 100 Unit/Ml 3 Ml Vial SUBCUT 05/03/23 21:34 10 unit ONCE ONE Administration Medical Decision Making Medical Decision Making [facility] Narrative: Patient is a 73-year-old female with past medical history of CHF with preserved ejection fraction, CKD, CLL, chronic hypoxemic respiratory failure secondary to COPD, obesity, obstructive sleep apnea, hypertension, mood disorder, hypothyroidism, insulin-dependent diabetes mellitus who presents to the emergency department for evaluation of positive blood culture result. The following is based on review of her medical record: - 04/26/2023 - evaluated in the emergency department found to have LEO, dehydration, hyperglycemia, blood cultures drawn at that time have now resulted, 1/2 positive for Klebsiella pneumoniae, ESBL susceptible only to ertapenem and gentamicin, this result was called back today which prompted her return. - Patient had an inpatient stay in February 2023, 02/10/2023 urine culture positive for Klebsiella, ESBL susceptible only to ertapenem gentamicin, she was treated with meropenem while inpatient, and discharged back to intermediate facility for 7 days treatment of ertapenem with end date 02/28/2023. Plan: CBC, CMP, lactic acid, repeat blood cultures (will attempt to obtain 1 set of cultures from [place] if able), ertapenem 1 g IV ordered, at this time does not meet SIRS criteria. Differential Diagnosis Differential Diagnoses: The differential diagnosis associated with the presentation includes (Bacteremia, urinary tract infection, pyelonephritis. Doubt endocarditis.) Lab Data 05/03/23 20:59 05/03/23 20:59 Labs: Lab Results 05/03/23 05/04/23 05/04/23 Range/Units 20:59 00:12 01:00 WBC 9.8 (4.8-10.8) X10*3/uL RBC 3.71 L (4.20-5.50) X10*6/uL Hgb 9.0 L (12.0-16.0) g/dl Hct 29.7 L (37.0-47.0) % MCV 80.1 (80.0-98.0) fL MCH 24.3 L (27.0-33.0) pg MCHC 30.3 L (31.0-35.0) g/dl RDW 14.5 (11.0-16.0) % Plt Count 240 (160-400) X10*3/uL MPV 11.8 (9.4-12.3) fL Immature Gran % (Auto) 0.9 H (0.0-0.4) % Neut % (Auto) 78.8 H (45-73) % Lymph % (Auto) 8.8 L (20-40) % [place] % (Auto) 9.1 (2-11) % Eos % (Auto) 2.0 (0-4) % Baso % (Auto) 0.4 (0-2) % Lymph # (Auto) 0.9 L (1.2-4.9) X10*3/uL [place] # (Auto) 0.9 (0.1-1.2) X10*3/uL Eos # (Auto) 0.2 (0.0-0.4) X10*3/uL Baso # (Auto) 0.0 (0.0-0.2) X10*3/uL Abs Immat Gran (auto) 0.09 H (0.00-0.03) X10*3/uL Absolute Neuts (auto) 7.7 (2.0-8.3) x10*3/uL Absolute Nucleated RBC 0.000 (0.0-0.012) X10*3/uL Nucleated RBC % (auto) 0.0 (0.0-0.2) /100WBC Smear Tech's Comments VERIFIED Sodium 132 L (135-145) mmol/L Potassium 3.9 (3.3-5.1) mmol/L Chloride 94 L (96-108) mmol/L Carbon Dioxide 26 (22-29) mmol/L Anion Gap 16 (12-20) BUN 34 H (9-16) mg/dL Creatinine 1.80 H (0.5-1.4) mg/dL Estim Creat Clear Calc 32.1 Estimated GFR 28 POC Glucose 185 H (60-115) mg/dL Random Glucose 378 H* (60-115) mg/dL Lactic Acid 1.5 (0.5-2.0) mmol/L Calcium 8.8 (8.4-10.2) mg/dL Total Bilirubin 0.2 (0.0-1.0) mg/dL AST 12 (5-31) U/L ALT 9 (0-31) U/L Alkaline Phosphatase 83 (39-117) U/L Total Protein 6.8 (6.5-8.0) g/dL Albumin 2.9 L (3.5-5.0) g/dL Urine Color Yellow Urine Appearance Turbid Urine pH 6.0 (5.0-9.0) Ur Specific [place] 1.015 (1.005-1.025) Urine Protein Trace (Neg-Trace) mg/dL Urine Glucose (UA) >=1000 H (Negative) mg/dL Urine Ketones Negative (Negative) mg/dL Urine Blood Trace H (Negative) Urine Nitrite Negative (Negative) Ur Leukocyte Esterase Large (3+) H (Negative) Urine RBC 3-5 H (0-2) /HPF Urine WBC >50 H (0-5) /HPF Ur Squamous Epith Cells 0-2 (0-2) /HPF Urine Bacteria None Seen (None Seen) Hyaline Casts 0-2 (0-2) /LPF Urine Yeast Present Discharge Plan Discharge Clinical Impression: Hyperglycemia, Blood culture positive for microorganism Patient Disposition: [facility] Additional Instructions: 12 set of blood culture obtained 04/26/2023 resulting as positive, clinically not consistent with acute bacteremia with this pathogen. Repeat blood cultures were obtained today, CBC shows no leukocytosis, renal function consistent with baseline, urinalysis without compelling evidence of acute infection, culture was sent. Any positive results will be communicated. No indication for antibiotics at this time. Prescriptions: No Action levothyroxine 175 mcg tablet 175 mcg PO DAILY@0600 citalopram 20 mg tablet 20 mg PO DAILY simvastatin 20 mg tablet 20 mg PO BEDTIME chlordiazepoxide HCl 10 mg capsule 10 mg PO BEDTIME insulin lispro protamin-lispro 100 unit/mL (75-25) insulin pen 0 unit subcut QIDACHS Protocol: Insulin Correction Scale Less than or equal to 110 ---- Give (units): 0 111 to 150 Give (units): 0 151 to 200 Give (units): 2 201 to 250 Give (units): 4 251 to 300 Give (units): 6 301 to 350 Give (units): 8 Greater than 350 Give (units): 10 Call MD if Blood Glucose > : 350 Januvia 100 mg tablet 100 mg PO DAILY Fleet Enema 19-7 gram/118 mL Enema 118 ml MO DAILY PRN (Reason: Constipation) guaifenesin 600 mg Tablet Extended Release 12hr 600 mg PO BID lorazepam 0.5 mg tablet 0.5 mg PO BID bisacodyl 10 mg Suppository 10 mg MO DAILY PRN (Reason: Constipation) hydroxyzine HCl 25 mg tablet 25 mg PO DAILY hydroxychloroquine 200 mg tablet 200 mg PO BID magnesium 200 mg Tablet 200 mg PO DAILY biotin 5 mg Tablet 5 mg PO DAILY riboflavin (vitamin B2) 400 mg Tablet 400 mg PO DAILY Incruse Ellipta 62.5 mcg/actuation Blister With Device 1 inh INHALATION DAILY budesonide-formoterol [Symbicort] 160-4.5 mcg/actuation Hfa Aerosol Inhaler 2 puff INHALATION BID latanoprost 0.005 % drops 1 drp ophthalmic (eye) BEDTIME Rx Instructions: 1 drop into both eyes albuterol sulfate 0.63 mg/3 mL Solution For Nebulization 0.63 mg INHALATION Q2H PRN (Reason: Shortness Of Breath Or Wheezing) tppmhgrihs-zcuthapzqkqjm-hnja 50-325-40 mg tablet 1 tab PO Q6H PRN (Reason: Headache) prednisolone acetate 1 % drops,suspension 1 drp ophthalmic-Right DAILY timolol maleate 0.5 % drops 1 drp ophthalmic-Right BID coenzyme Q10 [CoQ-10] 100 mg Capsule 150 mg PO DAILY melatonin 5 mg Tablet 5 mg PO BEDTIME Simbrinza 1-0.2 % drops,suspension 1 drp ophthalmic-Right BID Artificial Tears (cmc) 1 % Drops 1 drp OPHTHALMIC (EYE) BID Acidophilus Tablet,Chewable 1 tab PO BID Jardiance 10 mg Tablet 10 mg PO DAILY Qty: 30 0RF Calquence (acalabrutinib mal) 100 mg tablet 100 mg PO BID Qty: 60 6RF loperamide 2 mg Capsule 2 mg PO Q4H PRN (Reason: Loose Stool) Rx Instructions: administer after each loose stool until symptoms controlled; do not exceed 8 mg per 24 hrs diphenhydramine-zinc acetate 2-0.1 % Cream 1 appl TOPICAL QSHIFT methenamine hippurate 1 gram Tablet 1 g PO BID nystatin 100,000 unit/gram Powder 1 appl TOPICAL BID potassium chloride 20 mEq Tablet Extended Release 20 meq PO BEDTIME bumetanide 1 mg tablet 2 mg PO BID@0800,1700 Protocol: Hold for SBP< HOLD for SBP < : 90 levalbuterol HCl 1.25 mg/3 mL Solution For Nebulization 1.25 mg INHALATION QID potassium chloride 20 mEq Tablet,Er Particles/Crystals 40 meq PO DAILY Qty: 30 0RF prednisone 1 mg Tablet 6 mg PO DAILY Interventions: ED Discharge Assessment Last Done: 05/04/23 01:44 Discharge Date/Time: 05/04/23 02:53
[2023-05-03 21:20] LABS: Platelet Count 240 X10*3/uL (160-400); White Blood Count 9.8 X10*3/uL (4.8-10.8)
[2023-05-03 21:26] LABS: Alanine Aminotransferase 9 U/L (0-31); Albumin Level 2.9 g/dL (3.5-5.0); Alkaline Phosphatase 83 U/L (39-117); Anion Gap 16 (12-20); Aspartate Amino Transferase 12 U/L (5-31); Bilirubin Total 0.2 mg/dL (0.0-1.0); Blood Urea Nitrogen 34 mg/dL (9-16); Calcium 8.8 mg/dL (8.4-10.2); Carbon Dioxide 26 mmol/L (22-29); Chloride 94 mmol/L (96-108); Creatinine Clr Calc Pharmacy 32.1; Estimated Glomerular Filt Rate 28; Glucose Random 378 mg/dL (60-115); Potassium 3.9 mmol/L (3.3-5.1); Sodium 132 mmol/L (135-145); Total Protein 6.8 g/dL (6.5-8.0)
[2023-05-03 21:31] LABS: SLIDE REVIEW VERIFIED
--- NOTE | 2023-05-03 22:19 | PC.NURSE ---
Addendum entered by Zulma Mart 05/03/23 22:21: Port flushing with no resistance. Original Note: Two attempts made by two different RNs to get 2nd set of cultures from port, not successful. Cleaned and New dressing applied.
[2023-05-03] MEDS: Insulin Lispro 100 UNIT/ML 3 ML VIAL 10 UNIT SUBCUT (22:31)
[2023-05-03] MEDS: Ertapenem Sodium 1 GM in 0.9 % Sodium Chloride 50 ML IV (22:34)
--- NOTE | 2023-05-04 | PC.NURSE ---
pt straight cath for urine, Pt tolerated well. Urine sample cloudy yellow with sediment. Sample sent to lab.
[2023-05-04 00:24] VITALS: BP 109/54; PULSE 98; RESP 20; O2SAT 99
[2023-05-04 00:28] LABS: Appearance Urine Turbid; Color Urine Yellow; Glucose Urine UA >=1000 mg/dL (Negative); Leukocyte Esterase Urine Large (3+) (Negative); Nitrite Urine Negative (Negative); Specific Gravity - Urine 1.015 (1.005-1.025); UMIC TRIGGER UACC YES; Urine Blood Trace (Negative); Urine Ketones Negative (Negative); Urine Protein Trace mg/dL (Neg-Trace)
[2023-05-04 00:56] LABS: Bacteria Urine None Seen (None Seen); Hyaline Casts Urine 0-2 /LPF (0-2); Squamous Epithelial Cell Urine 0-2 /HPF (0-2); UACC Culture Trigger YES; WBC Urine >50 /HPF (0-5)
[2023-05-04 01:04] LABS: Glucose, Whole Blood 185 mg/dL (60-115)
--- NOTE | 2023-05-04 02:00 | MHC.EDTECH ---
CALL OUT TO [facility] TO BOOK TRANSPORT FOR PT AT 0200, ESTIMATED ETA GIVEN WAS 0230
== END 2023-05-04 02:53 | disposition skilled nursing facility (03) ==
PROVIDERS: Nurse Practitioner Family; Emergency Provider Emergency Medicine; PCP Internal Medicine
DX: R79.89 Other specified abnormal findings of blood chemistry (principal); E11.65 Type 2 diabetes mellitus with hyperglycemia; R31.9 Hematuria, unspecified; Z79.899 Other long term (current) drug therapy; Z87.891 Personal history of nicotine dependence; Z79.4 Long term (current) use of insulin
CPT/HCPCS: 36415; 51701; 80053; 81001; 82947; 83605; 85025; 87040; 87077; 87086; 87186; 87205; 96365; 99284; J1335

== ENCOUNTER 2023-05-09 06:22 | Outpatient (REF) | payer MEDICARE, MEDICAID, SELFPAY ==
[2023-05-09 06:07] LABS: MANUAL DIFF FLAG NO
[2023-05-09 06:40] LABS: Basophils Absolute Auto 0.1 X10*3/uL (0.0-0.2); Basophils Percent Auto 0.4 % (0-2); Eosinophils Absolute Auto 0.3 X10*3/uL (0.0-0.4); Eosinophils Percent Auto 2.2 % (0-4); Hematocrit 28.9 % (37.0-47.0); Hemoglobin 8.5 g/dl (12.0-16.0); Imm Gran Pct Auto 0.7 % (0.0-0.4); Lymphocytes Absolute Auto 1.4 X10*3/uL (1.2-4.9); Lymphocytes Percent Auto 10.6 % (20-40); Mean Corpuscular HGB Conc 29.4 g/dl (31.0-35.0); Mean Corpuscular Hemoglobin 24.1 pg (27.0-33.0); Mean Corpuscular Volume 82.1 fL (80.0-98.0); Mean Platelet Volume 11.6 fL (9.4-12.3); Monocytes Absolute Auto 1.2 X10*3/uL (0.1-1.2); Monocytes Percent Auto 9.1 % (2-11); Neutrophils Absolute Auto 10.4 x10*3/uL (2.0-8.3); Platelet Count 249 X10*3/uL (160-400); Red Blood Count 3.52 X10*6/uL (4.20-5.50); Red Cell Distribution Width 14.5 % (11.0-16.0); White Blood Count 13.5 X10*3/uL (4.8-10.8)
[2023-05-09 06:58] LABS: Alanine Aminotransferase 6 U/L (0-31); Albumin Level 2.8 g/dL (3.5-5.0); Alkaline Phosphatase 70 U/L (39-117); Anion Gap 16 (12-20); Aspartate Amino Transferase 7 U/L (5-31); Bilirubin Total 0.1 mg/dL (0.0-1.0); Blood Urea Nitrogen 26 mg/dL (9-16); Calcium 8.5 mg/dL (8.4-10.2); Carbon Dioxide 30 mmol/L (22-29); Chloride 96 mmol/L (96-108); Estimated Glomerular Filt Rate 28; Glucose Random 308 mg/dL (60-115); Potassium 3.9 mmol/L (3.3-5.1); Sodium 138 mmol/L (135-145); Total Protein 6.1 g/dL (6.5-8.0)
== END 2023-05-09 06:23 | disposition home or self-care (01) ==
LOC: HO.MMNH2L 06:22
PROVIDERS: Visit Provider Family Medicine
DX: N18.9 Chronic kidney disease, unspecified (principal)
CPT/HCPCS: 36415; 80053; 85025

== ENCOUNTER 2023-05-16 06:53 | Outpatient (REF) | payer MEDICARE, MEDICAID, SELFPAY ==
[2023-05-16 07:21] LABS: Basophils Absolute Auto 0.1 X10*3/uL (0.0-0.2); Basophils Percent Auto 0.5 % (0-2); Eosinophils Absolute Auto 0.4 X10*3/uL (0.0-0.4); Eosinophils Percent Auto 2.1 % (0-4); Hematocrit 27.4 % (37.0-47.0); Imm Gran Abs Auto 0.16 X10*3/uL (0.00-0.03); Imm Gran Pct Auto 0.8 % (0.0-0.4); Lymphocytes Absolute Auto 1.8 X10*3/uL (1.2-4.9); Lymphocytes Percent Auto 9.1 % (20-40); MANUAL DIFF FLAG SCAN; Mean Corpuscular HGB Conc 29.2 g/dl (31.0-35.0); Mean Corpuscular Hemoglobin 24.2 pg (27.0-33.0); Mean Corpuscular Volume 82.8 fL (80.0-98.0); Mean Platelet Volume 12.1 fL (9.4-12.3); Monocytes Absolute Auto 1.6 X10*3/uL (0.1-1.2); Neutrophils Absolute Auto 15.9 x10*3/uL (2.0-8.3); Neutrophils Percent Auto 79.5 % (45-73); Platelet Count 192 X10*3/uL (160-400); Red Blood Count 3.31 X10*6/uL (4.20-5.50); Red Cell Distribution Width 15.1 % (11.0-16.0); SCAN SMEAR FLAG 1
[2023-05-16 07:37] LABS: Sodium 132 mmol/L (135-145)
[2023-05-16 07:38] LABS: Alanine Aminotransferase 6 U/L (0-31); Albumin Level 2.4 g/dL (3.5-5.0); Alkaline Phosphatase 68 U/L (39-117); Anion Gap 12 (12-20); Aspartate Amino Transferase 10 U/L (5-31); Bilirubin Total 0.2 mg/dL (0.0-1.0); Blood Urea Nitrogen 35 mg/dL (9-16); Calcium 8.3 mg/dL (8.4-10.2); Carbon Dioxide 23 mmol/L (22-29); Chloride 103 mmol/L (96-108); Estimated Glomerular Filt Rate 23; Glucose Random 72 mg/dL (60-115); Total Protein 5.8 g/dL (6.5-8.0)
[2023-05-16 08:02] LABS: SLIDE REVIEW VERIFIED
[2023-05-16 08:15] LABS: Potassium 6.4 mmol/L (3.3-5.1)
== END 2023-05-16 06:54 | disposition home or self-care (01) ==
LOC: HO.MMNH2L 06:53
PROVIDERS: Visit Provider Family Medicine
DX: Z13.89 Encounter for screening for other disorder (principal)
CPT/HCPCS: 36415; 80053; 85025

== ENCOUNTER 2023-05-17 06:14 | Outpatient (REF) | payer MEDICARE, MEDICAID, SELFPAY ==
[2023-05-17 06:17] LABS: MANUAL DIFF FLAG NO
[2023-05-17 06:55] LABS: Basophils Absolute Auto 0.1 X10*3/uL (0.0-0.2); Basophils Percent Auto 0.4 % (0-2); Eosinophils Absolute Auto 0.2 X10*3/uL (0.0-0.4); Eosinophils Percent Auto 1.3 % (0-4); Hematocrit 32.7 % (37.0-47.0); Hemoglobin 9.6 g/dl (12.0-16.0); Imm Gran Pct Auto 0.7 % (0.0-0.4); Lymphocytes Percent Auto 6.9 % (20-40); Mean Corpuscular HGB Conc 29.4 g/dl (31.0-35.0); Mean Corpuscular Volume 81.8 fL (80.0-98.0); Mean Platelet Volume 12.1 fL (9.4-12.3); Monocytes Absolute Auto 0.2 X10*3/uL (0.1-1.2); Monocytes Percent Auto 1.5 % (2-11); Neutrophils Absolute Auto 12.8 x10*3/uL (2.0-8.3); Neutrophils Percent Auto 89.2 % (45-73); Platelet Count 197 X10*3/uL (160-400); Red Cell Distribution Width 15.2 % (11.0-16.0); White Blood Count 14.3 X10*3/uL (4.8-10.8)
[2023-05-17 07:34] LABS: Alanine Aminotransferase 6 U/L (0-31); Albumin Level 2.7 g/dL (3.5-5.0); Alkaline Phosphatase 89 U/L (39-117); Anion Gap 14 (12-20); Aspartate Amino Transferase 11 U/L (5-31); Bilirubin Total 0.3 mg/dL (0.0-1.0); Blood Urea Nitrogen 35 mg/dL (9-16); Calcium 8.4 mg/dL (8.4-10.2); Carbon Dioxide 22 mmol/L (22-29); Chloride 102 mmol/L (96-108); Estimated Glomerular Filt Rate 25; Potassium 5.4 mmol/L (3.3-5.1); Sodium 133 mmol/L (135-145); Total Protein 6.6 g/dL (6.5-8.0)
[2023-05-17 07:40] LABS: Glucose Random 45 mg/dL (60-115)
== END 2023-05-17 06:15 | disposition home or self-care (01) ==
LOC: HO.MMNH2L 06:14
PROVIDERS: Visit Provider Family Medicine
DX: Z13.89 Encounter for screening for other disorder (principal)
CPT/HCPCS: 36415; 80053; 85025

== ENCOUNTER 2023-05-17 08:33 | Inpatient (IN) | payer MEDICARE, MEDICAID, SELFPAY ==
[2023-05-17] VITALS (36 sets, daily range): BP systolic 68–154; BP diastolic 30–131; PULSE 84–120; RESP 17–28; TEMP 36.6–38.4; O2SAT 95–100; BMI 37.0; BMI 37.5
--- NOTE | ~2023-05-17 | XR_ITS ---
EXAMINATION: XR CHEST CLINICAL INFORMATION: Altered mental status COMPARISON: Chest radiograph from 04/26/2023 TECHNIQUE: Frontal view of the chest was obtained. FINDINGS: Right-sided central venous catheter terminates in the mid SVC. Stable left retrocardiac radiopacity. Small left pleural effusion. Redemonstration of bilateral interstitial radiopacities. Prominence of the pulmonary vasculature. No pneumothorax. Trachea is midline. Cardiac mediastinal silhouette is stable. Her demonstrates atherosclerotic calcifications. Osseous structures are intact. Soft tissues are unremarkable. XR/XR chest 1V IMPRESSION: 1. Right-sided central venous catheter terminates in the mid SVC. 2. Stable left retrocardiac radiopacity. 3. Small left pleural effusion. 4. Redemonstration of bilateral interstitial radiopacities. 5. Prominence of the pulmonary vasculature.
--- NOTE | ~2023-05-17 | CT_ITS ---
Examination: CT chest, abdomen pelvis without IV contrast. Clinical indication, hypoglycemia. COMPARISON: Chest x-ray 05/17/2023 TECHNIQUE: 5 mm thin axial and reformatted 3 mm thin sagittal and coronal images of chest, abdomen and pelvis were obtained without contrast. This CT examination was performed using dose optimization technique as appropriate, variously including the following: Automated exposure control Adjustment of MA and/or KV according to patient size(this includes techniques or standardized protocols for targeted exams where dose is matched to indication/reason for exam; extremities or head. Use of iterative reconstruction techniques. FINDINGS: CHEST: LUNGS: The lungs are well-expanded and clear of acute pneumonic process. PLEURA: There is bilateral small pleural effusions. Mediastinum: Thyroid lobes are small, symmetrical and normal. Central trachea and the bronchial airways are widely patent. Heart size enlarged without pericardial effusion. There is dense mitral valve calcification moderate coronary artery calcifications are present. No pericardial effusion seen. There are numerous prominent mediastinal lymph nodes. The largest lymph node measuring 1.4 cm in the right pretracheal space. AXILLA: There is no abnormal axillary lymph nodes. The chest wall is unremarkable. OSSEOUS STRUCTURES: No aggressive lytic or sclerotic process seen. There is mild ventral spondylosis mid and lower dorsal spine. Abdomen and pelvis: Liver, ducts and gallbladder: The liver is normal size, and contour and density. No focal lesion or intrahepatic ductal dilatation seen. Spleen: Unremarkable. Pancreas: Unremarkable. Adrenal glands: Unremarkable. Kidneys: Both kidneys are normal size for patient's age. There are bilateral internal ureteral stents. No radiopaque calculi seen in the kidneys or along the course of the ureter. There is however mild left hydroureter nephrosis in the proximal segment. The bladder is unremarkable. Lymphovascular structures: Abdominal aorta is normal caliber with mild atherosclerotic calcification. No retroperitoneal lymph nodes. GI tract: There is scattered gas and minimal stool seen throughout the colon without distention. The small bowel loops are normal caliber. Appendix is not visualized the stomach is nondistended. Abdominal wall: Unremarkable. Pelvis: Uterus is not visualized likely removed or atrophied. There are scattered phleboliths in the pelvis. There is scattered stool in the rectum and sigmoid colon without distention. Osseous structures: No aggressive lytic or sclerotic process seen. There is mild ventral spondylosis mid and lower dorsal spine. CT/CT abdomen pelvis wo IV con IMPRESSION: 1. Bilateral small pleural effusions. 2. Cardiomegaly with dense mitral valve calcification. 3. There are numerous prominent mediastinal lymph nodes with the largest lymph node measuring 1.4 cm in the right pretracheal space. 4. Bilateral internal ureteral stents with mild left hydroureteronephrosis. 5. Mild constipation without obstruction. 6. Mild ventral spondylosis mid and lower dorsal spine.
--- NOTE | ~2023-05-17 | FL_ITS ---
EXAMINATION: XR FLUOROSCOPY WITH IMAGES CLINICAL INFORMATION: Bilateral stent removal. COMPARISON: CT abdomen pelvis 05/17/2023. TECHNIQUE: Fluoroscopy Supervised By: Dr. Shahid Quinones. Fluoroscopy Time: 1.8 seconds. Cumulative Dose: 0.77 mGy. DAP: Not available. Images: 1. FINDINGS: Please see Dr. Shahid Quinones's operative note for details. No ureteral stents are seen. Partial visualization of a neurostimulator lead. FL/FL guidance in OR IMPRESSION: Fluoroscopy and spot films provided during stent removal.
--- NOTE | ~2023-05-17 | CT_ITS ---
EXAMINATION: CT HEAD WITHOUT CONTRAST CLINICAL INFORMATION: Altered mental status. COMPARISON: 05/17/2023 TECHNIQUE: Contiguous axial imaging was performed from the skull base to vertex without intravenous administration of contrast. This CT examination was performed using dose optimization techniques as appropriate, variously including the following: *Automated exposure control *Adjustment of mA and/or kV according to patient size (this includes techniques or standardized protocols for targeted exams where dose is matched to indication/reason for exam; i.e. extremities or head) *Use of iterative reconstruction technique DLP: 660 mGy-cm FINDINGS: There is cerebral volume loss with prominence of the lateral and the third ventricles. The cortical sulci are widened appropriately. The fourth ventricle and basal cisterns are normally outlined. There is moderate bilateral periventricular and central white matter diminished attenuation. There is no acute territorial defect, hemorrhage or midline shift. A few small lipomas are noted. The extra-axial spaces are otherwise unremarkable. Calvarium: Intact. Maxillofacial sinuses and mastoids: There is a right maxillary sinus opacity. There is also a right sphenoid sinus opacity. CT/CT head/brain wo IV con IMPRESSION: 1. No acute intracranial pathology. 2. Chronic microangiopathy and generalized cerebral volume loss. 3. Right maxillary and right sphenoid sinus disease which were present previously.
--- NOTE | ~2023-05-17 | CT_ITS ---
CT HEAD WITHOUT IV CONTRAST CLINICAL INFORMATION: Altered mental status. COMPARISON: Head CT 10/01/2015. TECHNIQUE: Contiguous axial imaging was performed from the skull base to vertex without intravenous administration of contrast. This CT examination was performed using dose optimization techniques as appropriate, variously including the following: *Automated exposure control *Adjustment of mA and/or kV according to patient size (this includes techniques or standardized protocols for targeted exams where dose is matched to indication/reason for exam; i.e. extremities or head) *Use of iterative reconstruction technique FINDINGS: Stable appearing dorsal pericallosal and parafalcine lipomas. There is no intracranial hemorrhage, hydrocephalus, extra-axial surface collection, midline shift, or other herniation pattern. Cohen to white matter differentiation is diffusely maintained without evidence of an evolved acute territorial infarct. The basilar cisterns are preserved. No significant soft tissue abnormality. No acute osseous abnormality. Moderate mucosal thickening and a fluid level within the right maxillary sinus as well as a small fluid level within the right sphenoid sinus that correlated for clinical signs of acute sinusitis. Right superolateral orbital glaucoma shunt reservoir. CT/CT head/brain wo IV con IMPRESSION: - No acute intracranial findings. - There is moderate chronic microangiopathy. - Stable appearing dorsal pericallosal and parafalcine lipomas. - Moderate mucosal thickening and a fluid level within the right maxillary sinus as well as a small fluid level within the right sphenoid sinus that correlated for clinical signs of acute sinusitis.
--- NOTE | 2023-05-17 09:04 | PC.NURSE ---
pt biba from [facility] d/t being hypoglycemic. pt was found sitting upright w/ eyes closed/unresponsive. POC obtained displaying 46mg/dL. SNF attempted to administer PO oral glucose. pt was unable to tolerate PO d/t being unresponsive at SNF. 1mg IM glucagon administered. POC post glucagon displayed 257mg/dL. POC upon EMS arrival = 81mg/dL. pt remains hypoglycemic upon EMS arrival to ED. pt cold/clammy/extremely diaphoretic. pt not alert and oriented at this time. responsive to verbal stimuli. POC obtained in ED = 37mg/dL. dextrose administered via IVP. POC checked post medication administration displaying 57mg/dL. another dose of dextrose administered IVP. POC post 2nd IVP dextrose displays 136mg/dL.
--- NOTE | 2023-05-17 09:11 | ECG_ITS ---
Test Reason : SOB Blood Pressure : / mmHG Vent. Rate : 120 BPM Atrial Rate : 120 BPM P-R Int : 136 ms QRS Dur : 104 ms QT Int : 336 ms P-R-T Axes : 000 103 -17 degrees QTc Int : 474 ms Artifact Sinus tachycardia vs atrial flutter Rightward axis Possible Anterior infarct , age undetermined ST & T wave abnormality, consider inferior ischemia Abnormal ECG When compared with ECG of 26-APR-2023 14:54, Vent. rate has increased BY 43 BPM Borderline criteria for Anterior infarct are now Present Referred By: Yuliana Helton Electronically Signed By:Kenji Green
--- NOTE | 2023-05-17 09:11 | ED.GENADULT ---
HPI - General Adult General Chief complaint: Recheck/Abnormal Lab/Rx Stated complaint: LOW BS 84,AMS, FROM SNF PER EMS Time Seen by Provider: 05/17/23 09:00 Source: patient, EMS, RN notes reviewed and old records reviewed Mode of arrival: EMS History of Present Illness HPI narrative: 73-year-old female with a past medical history of CHF, HTN, COPD on chronic 2L NC, CKD, LATONYA, anemia, Chavez device to right anterior chest, presenting to ED via EMS from [facility] for hypoglycemia, AMS/increased lethargy/unresponsiveness and abnormal outpatient labs. History obtained from patient's niece/caregiver. Patient's POC at facility was 46, was attempted to give oral glucose and ?aspirated. Of noted patient with ESBL Klebsiella positive blood cultures on 05/03/2023 which were suspected to be contaminant, did not meet admission criteria at that time, and final blood cultures were without growth. Niece reports cough. Remaining history limited due to patient's acute mental status Related Data Home Medications Medication Instructions Recorded Confirmed chlordiazepoxide HCl 10 mg capsule 10 mg PO BEDTIME 10/08/21 04/26/23 citalopram 20 mg tablet 20 mg PO DAILY 10/08/21 04/26/23 insulin lispro protamine-lispro 0 unit subcut QIDACHS 10/08/21 04/26/23 100 unit/mL (75-25) subcutaneous pen levothyroxine 175 mcg tablet 175 mcg PO DAILY@0600 10/08/21 04/26/23 simvastatin 20 mg tablet 20 mg PO BEDTIME 10/08/21 04/26/23 sitagliptin phosphate 100 mg 100 mg PO DAILY 10/08/21 04/26/23 tablet (Januvia) latanoprost 0.005 % eye drops 1 drp ophthalmic (eye) BEDTIME 11/20/21 04/26/23 albuterol sulfate 0.63 mg/3 mL 0.63 mg inhalation Q2H PRN 02/16/22 04/26/23 solution for nebulization Shortness Of Breath Or Wheezing brinzolamide 1 %-brimonidine 0.2 % 1 drp ophthalmic-Right BID 02/16/22 04/26/23 eye drops,suspension (Simbrinza) rsyzsvoxfa-uknzjwheaxrxp-eoajyiqm 1 tab PO Q6H PRN Headache 02/16/22 04/26/23 50 mg-325 mg-40 mg tablet coenzyme Q10 100 mg capsule 150 mg PO DAILY 02/16/22 04/26/23 (CoQ-10) melatonin 5 mg tablet 5 mg PO BEDTIME 02/16/22 04/26/23 prednisolone acetate 1 % eye 1 drp ophthalmic-Right DAILY 02/16/22 04/26/23 drops,suspension timolol maleate 0.5 % eye drops 1 drp ophthalmic-Right BID 02/16/22 04/26/23 carboxymethylcellulose sodium 1 % 1 drp ophthalmic (eye) BID 03/15/22 04/26/23 eye drops (Artificial Tears (carboxymethylcellulose)) budesonide-formoterol HFA 160 2 puff inhalation BID 04/27/22 04/26/23 mcg-4.5 mcg/actuation aerosol inhaler (Symbicort) umeclidinium 62.5 mcg/actuation 1 inh inhalation DAILY 04/27/22 04/26/23 blister powder for inhalation (Incruse Ellipta) guaifenesin 600 mg tablet, 600 mg PO BID cough 06/08/22 04/26/23 extended release 12 hr sodium phosphates 19 gram-7 118 ml OK DAILY PRN Constipation 06/08/22 04/26/23 gram/118 mL enema (Fleet Enema) levalbuterol HCl 1.25 mg/3 mL 1.25 mg inhalation QID 07/30/22 04/26/23 solution for nebulization biotin 5 mg tablet 5 mg PO DAILY 08/11/22 04/26/23 bisacodyl 10 mg rectal suppository 10 mg OK DAILY PRN Constipation 08/11/22 04/26/23 hydroxychloroquine 200 mg tablet 200 mg PO BID 08/11/22 04/26/23 hydroxyzine HCl 25 mg tablet 25 mg PO DAILY 08/11/22 04/26/23 lorazepam 0.5 mg tablet 0.5 mg PO BID Anxiety 08/11/22 04/26/23 magnesium 200 mg tablet 200 mg PO DAILY 08/11/22 04/26/23 riboflavin (vitamin B2) 400 mg 400 mg PO DAILY 08/11/22 04/26/23 tablet prednisone 1 mg tablet 6 mg PO DAILY 10/27/22 04/26/23 Lactobacillus acidophilus 1 tab PO BID 02/14/23 04/26/23 (Acidophilus chewable tablet) bumetanide 1 mg tablet 2 mg PO BID@0800,1700 04/26/23 04/26/23 diphenhydramine-zinc acetate 2 1 appl topical QSHIFT 04/26/23 04/26/23 %-0.1 % topical cream loperamide 2 mg capsule 2 mg PO Q4H PRN Loose Stool 04/26/23 04/26/23 methenamine hippurate 1 gram tablet 1 g PO BID 04/26/23 04/26/23 nystatin 100,000 unit/gram topical 1 appl topical BID 04/26/23 04/26/23 powder potassium chloride 20 mEq 20 meq PO BEDTIME 04/26/23 04/26/23 tablet,extended release Previous Rx's Medication Instructions Recorded potassium chloride 20 mEq 40 meq (2 x 20 mEq) PO DAILY #30 08/06/22 tablet,extended release(part/cryst) tabs empagliflozin 10 mg tablet 10 mg PO DAILY #30 tabs 02/21/23 (Jardiance) acalabrutinib maleate 100 mg 100 mg PO BID #60 tabs 04/07/23 tablet (Calquence (acalabrutinib maleate)) Allergies Allergy/AdvReac Type Severity Reaction Status Date / Time oxycodone [From Percocet] Allergy Intermediate Rash Verified 05/17/23 09:33 lisinopril Allergy Unknown Unknown Verified 05/17/23 09:33 metoprolol AdvReac Severe bradycardia Verified 05/17/23 09:33 Review of Systems Review of Systems: History limited due to patient's acute mental status Yes all other systems are reviewed and are negative Constitutional: Constitutional: Reports as per [facility] Past Medical History Attestation statement: The following information was validated with the patient. Source: old records reviewed Medical History Congestive heart failure Essential hypertension Acute on chronic heart failure with preserved ejection fraction Acute and chronic respiratory failure with hypoxia (HFpEF) heart failure with preserved ejection fraction Morbid obesity COPD exacerbation CKD (chronic kidney disease) stage 3, GFR 30-59 ml/min LATONYA (obstructive sleep apnea) Anemia Hypoventilation associated with obesity COVID Congestive heart failure Acute respiratory failure with hypoxia Rash Heart block AV second degree Acute UTI Acute kidney injury superimposed on CKD Bradycardia Pleural effusion Acute respiratory failure Pneumonia due to COVID-19 virus Chronic lymphocytic leukemia (CLL), B-cell Dyspnea Congestive heart failure COVID-19 Hypoxia Influenza A CLL (chronic lymphocytic leukemia) Suspected deep tissue injury Klebsiella pneumonia Infection with ESBL Klebsiella oxytoca Lymphadenopathy, mediastinal Pleural effusion Congestive heart failure COVID Lower extremity edema Migraine HTN (hypertension) Pseudotumor cerebri PVD (peripheral vascular disease) Obesity CKD (chronic kidney disease) Diabetes mellitus with insulin therapy Hypothyroidism HLD (hyperlipidemia) Surgical History S/P appendectomy H/O cataract extraction H/O hysterectomy for benign disease Hx of cholecystectomy Family History Family History Mother Heart attack, Onset Age: 92 Father Heart attack, Onset Age: 66 Other Diabetes Social History Social History Household Members: Other Household Members Other:: Assisted living facility Housing: [facility] Alcohol intake: never Comment: bedrest Patient Tobacco Use Status: Former Tobacco user Second Hand Smoke Exposure: No Advance Directives: Yes Advance Directives on File: Yes Advance Directives Date on File: 09/26/20 service: No Current occupational status: disabled Physical Exam ED Vital Signs: Vital Signs - 24 hr 05/17/23 09:17 05/17/23 09:24 05/17/23 09:45 Temperature Pulse Rate 109 H 112 H 117 H Respiratory Rate 28 H 26 H 22 H Blood Pressure 68/31 L 100/41 L 86/35 L Pulse Oximetry 100 99 98 Oxygen Delivery Method Nasal Cannula Nasal Cannula Nasal Cannula Oxygen Flow Rate 4 2 2 05/17/23 10:01 05/17/23 10:25 05/17/23 10:46 Temperature 98.2 F Pulse Rate 119 H 113 H 108 H Respiratory Rate 28 H 22 H 24 H Blood Pressure 154/131 H 97/47 L 85/33 L Pulse Oximetry 96 97 99 Oxygen Delivery Method Nasal Cannula Room Air Nasal Cannula Oxygen Flow Rate 2 2 2 05/17/23 11:00 05/17/23 11:03 05/17/23 11:08 Temperature Pulse Rate 101 H 104 H 103 H Respiratory Rate 24 H Blood Pressure 76/32 L 76/32 L 76/34 L Pulse Oximetry 98 Oxygen Delivery Method Nasal Cannula Oxygen Flow Rate 2 05/17/23 11:13 05/17/23 11:18 05/17/23 11:21 Temperature Pulse Rate 102 H 101 H 100 Respiratory Rate Blood Pressure 89/33 L 94/30 L 108/57 L Pulse Oximetry Oxygen Delivery Method Oxygen Flow Rate BMI result Body Mass Index 37.0 Const Other: Clammy, diaphoretic, lethargic, alert to voice Limitations: altered mental status HENMT Head: Yes normal to inspection and Yes atraumatic Ears: hearing grossly normal bilaterally General nose exam: Normal external nose present Face and sinus: Yes normal facial exam Eyes General: appearance normal, both eyes and all related structures EOM: EOMs intact bilaterally Neck Neck: Yes normal visual inspection and Yes no meningeal signs Resp Effort & Inspection: normal respiratory effort and no respiratory distress Auscultation: diminished lung sounds diffuse Cardio Rate: regular rate and tachycardic Heart sounds: S1 normal heart sound present and S2 normal heart sound present GI Inspection: Yes normal to inspection Palpation (GI): Soft to palpation, nontender, no guarding and not rigid Skin Rashes: no rashes Wounds: no wounds Neuro General: tone normal and no meningeal signs Extrem General: Yes normal to inspection Course Course Course Narrative: -due to obesity, ideal body weight = 62kg, 62kg x 30mg/kg IVF = 1860cc IVF -leukocytosis 23.9 with 28% bands. H&H at patients baseline. Chronic CKD. Lactic acid 2.3 - +transaminitis. Troponin 728 > likely from CKD rather than acute ACS. BNP chronically elevated -UA appears infected. COVID and flu negative XR chest 1V IMPRESSION: 1. Right-sided central venous catheter terminates in the mid SVC. 2. Stable left retrocardiac radiopacity. 3. Small left pleural effusion. 4. Redemonstration of bilateral interstitial radiopacities. 5. Prominence of the pulmonary vasculature. > will obtain CTs to further investigate source of bacteremia -Blood pressure persistently low, Levophed initiated through port -case discussed with research computing specialist, Dr. Jurado, who accepted admission Medications Administered Generic Name Dose Route Start Last Admin Trade Name Freq PRN Reason Stop Dose Admin Norepinephrine Bitartrate 8 mg in 250 mls @ 0 mls/hr 05/17/23 11:00 05/17/23 11:21 Levophed IV 0.2 mcg/kg/min .Q0M ALAN 40.16 mls/hr Titration Protocol Per Protocol Discontinued Medications Generic Name Dose Route Start Last Admin Trade Name Ronny PRN Reason Stop Dose Admin Dextrose 25 gm 05/17/23 09:10 05/17/23 09:15 Dextrose 50 % 25 Gm/50 Ml Syringe IVPUSH 05/17/23 09:11 25 gm ONCE ONE Administration Dextrose 25 gm 05/17/23 09:15 05/17/23 09:26 Dextrose 50 % 25 Gm/50 Ml Syringe IVPUSH 05/17/23 09:16 25 gm ONCE ONE Administration Sodium Chloride 1,000 mls @ 999 mls/hr 05/17/23 09:30 05/17/23 11:03 Ns IV 05/17/23 10:30 Infused .Q1H1M ALAN Infusion Sodium Chloride 1,000 mls @ 999 mls/hr 05/17/23 09:30 05/17/23 10:28 Ns IV 05/17/23 10:30 Infused .Q1H1M ALAN Infusion Piperacillin Sod/Tazobactam 50 mls @ 100 mls/hr 05/17/23 09:48 05/17/23 10:37 Sod 3.375 gm/ Sodium Chloride IV 05/17/23 10:17 Infused ONCE ONE Infusion Ertapenem 1 gm/ Sodium 50 mls @ 100 mls/hr 05/17/23 10:37 05/17/23 10:57 Chloride IV 05/17/23 11:06 100 mls/hr ONCE ONE Administration Medical Decision Making Medical Decision Making MDM Narrative: 73-year-old female with a past medical history of CHF, HTN, COPD on chronic 2L NC, CKD, LATONYA, anemia, Chavez device to right anterior chest, presenting to ED via EMS from [facility] for hypoglycemia, AMS/increased lethargy/unresponsiveness and abnormal outpatient labs. On exam hypotensive, tachycardic, tachypneic, altered, lethargic, alert to voice. POC 45. Concern for infectious and hypoglycemia/metabolic etiology. Lower suspicion for ICH/CVA/TIA. Patient moves all severe sepsis criteria, IV fluids, empiric IV Zosyn ordered Plan: EKG, labs, UA, CXR, IVF, empiric antibiotics, anticipate admission Please refer to course for remaining clinical decision making, interpretation of labs/imaging results, and discussions with consultants and/or family members. Differential Diagnosis Differential Diagnoses: The differential diagnosis associated with the presentation includes As above Admission/Observation Consideration of admission/observation: Escalation of care including admission/observation considered Consult Healthcare Provider Management of the patient was discussed with: Pattern Puncher (ED attending, Dr. Mirza & Pellet Press Operator Dr. Jurado) Lab Data MDM Lab Attestation statement: I reviewed the patient's lab results. 05/17/23 09:39 05/17/23 09:39 Labs: Lab Results 05/17/23 05/17/23 05/17/23 Range/Units 09:04 09:15 09:20 WBC (4.8-10.8) X10*3/uL RBC (4.20-5.50) X10*6/uL Hgb (12.0-16.0) g/dl Hct (37.0-47.0) % MCV (80.0-98.0) fL MCH (27.0-33.0) pg MCHC (31.0-35.0) g/dl RDW (11.0-16.0) % Plt Count (160-400) X10*3/uL MPV (9.4-12.3) fL Immature Gran % (Auto) Neut % (Auto) Lymph % (Auto) [place] % (Auto) Eos % (Auto) Baso % (Auto) Lymph # (Auto) [place] # (Auto) Eos # (Auto) Baso # (Auto) Abs Immat Gran (auto) Absolute Neuts (auto) Absolute Nucleated RBC (0.0-0.012) X10*3/uL Nucleated RBC % (auto) (0.0-0.2) /100WBC Neutrophils % (Manual) (45-73) % Band Neutrophils % (3-5) % Lymphocytes % (Manual) (20-40) % Abs Neuts (Manual) (2.0-8.3) X10*3/uL Lymphocytes # (Manual) (1.2-4.9) X10*3/uL Toxic Granulation Toxic Vacuolation Platelet Estimate (NORMAL) Large Platelets Plt Morphology Comment RBC Morphology Polychromasia /OIF Ovalocytes /OIF PT (11.1-13.3) SEC INR (0.9-1.1) Sodium (135-145) mmol/L Potassium (3.3-5.1) mmol/L Chloride (96-108) mmol/L Carbon Dioxide (22-29) mmol/L Anion Gap (12-20) BUN (9-16) mg/dL Creatinine (0.5-1.4) mg/dL Estim Creat Clear Calc Estimated GFR POC Glucose 37 L* 57 L* 136 H (60-115) mg/dL Random Glucose (60-115) mg/dL Lactic Acid (0.5-2.0) mmol/L Calcium (8.4-10.2) mg/dL Magnesium (1.6-2.6) mg/dL Total Bilirubin (0.0-1.0) mg/dL Direct Bilirubin (0.0-0.5) mg/dL AST (5-31) U/L ALT (0-31) U/L Alkaline Phosphatase (39-117) U/L Ammonia (13-55) umol/L Troponin I High Sens (<3.5-17.0) ng/L B-Natriuretic Peptide (<100) pg/mL Total Protein (6.5-8.0) g/dL Albumin (3.5-5.0) g/dL Lipase (8-78) U/L Urine Color Urine Appearance Urine pH (5.0-9.0) Ur Specific [place] (1.005-1.025) Urine Protein (Neg-Trace) mg/dL Urine Glucose (UA) (Negative) mg/dL Urine Ketones (Negative) mg/dL Urine Blood (Negative) Urine Nitrite (Negative) Ur Leukocyte Esterase (Negative) Urine RBC (0-2) /HPF Urine WBC (0-5) /HPF Ur Squamous Epith Cells (0-2) /HPF Urine Bacteria (None Seen) Hyaline Casts (0-2) /LPF Urine Yeast COVID-19 (DENY) (Negative) COVID-19 Clin Com Influenza Type A (JULIANN) (Negative) Influenza Type B (JULIANN) (Negative) Influenza A & B Note 05/17/23 05/17/23 05/17/23 Range/Units 09:39 10:03 10:14 WBC 23.9 H (4.8-10.8) X10*3/uL RBC 3.69 L (4.20-5.50) X10*6/uL Hgb 9.0 L (12.0-16.0) g/dl Hct 29.9 L (37.0-47.0) % MCV 81.0 (80.0-98.0) fL MCH 24.4 L (27.0-33.0) pg MCHC 30.1 L (31.0-35.0) g/dl RDW 14.9 (11.0-16.0) % Plt Count 212 (160-400) X10*3/uL MPV 11.5 (9.4-12.3) fL Immature Gran % (Auto) Cancelled Neut % (Auto) Cancelled Lymph % (Auto) Cancelled [place] % (Auto) Cancelled Eos % (Auto) Cancelled Baso % (Auto) Cancelled Lymph # (Auto) Cancelled [place] # (Auto) Cancelled Eos # (Auto) Cancelled Baso # (Auto) Cancelled Abs Immat Gran (auto) Cancelled Absolute Neuts (auto) Cancelled Absolute Nucleated RBC 0.000 (0.0-0.012) X10*3/uL Nucleated RBC % (auto) 0.0 (0.0-0.2) /100WBC Neutrophils % (Manual) 69 (45-73) % Band Neutrophils % 28 H (3-5) % Lymphocytes % (Manual) 3 L (20-40) % Abs Neuts (Manual) 23.2 H (2.0-8.3) X10*3/uL Lymphocytes # (Manual) 0.7 L (1.2-4.9) X10*3/uL Toxic Granulation PRESENT Toxic Vacuolation PRESENT Platelet Estimate NORMAL (NORMAL) Large Platelets PRESENT Plt Morphology Comment NOTED RBC Morphology NOTED Polychromasia 1+ (0-2) /OIF Ovalocytes 1+ (5-14) /OIF PT 13.1 (11.1-13.3) SEC INR 1.1 (0.9-1.1) Sodium 134 L (135-145) mmol/L Potassium 4.7 (3.3-5.1) mmol/L Chloride 102 (96-108) mmol/L Carbon Dioxide 23 (22-29) mmol/L Anion Gap 14 (12-20) BUN 39 H (9-16) mg/dL Creatinine 2.06 H (0.5-1.4) mg/dL Estim Creat Clear Calc 31.0 Estimated GFR 24 POC Glucose 156 H (60-115) mg/dL Random Glucose 47 L* (60-115) mg/dL Lactic Acid 2.3 H* (0.5-2.0) mmol/L Calcium 8.0 L (8.4-10.2) mg/dL Magnesium 2.5 (1.6-2.6) mg/dL Total Bilirubin 0.5 (0.0-1.0) mg/dL Direct Bilirubin 0.3 (0.0-0.5) mg/dL AST 189 H (5-31) U/L ALT 53 H (0-31) U/L Alkaline Phosphatase 271 H (39-117) U/L Ammonia 30 (13-55) umol/L Troponin I High Sens 728.9 H* D (<3.5-17.0) ng/L B-Natriuretic Peptide 941 H (<100) pg/mL Total Protein 6.1 L (6.5-8.0) g/dL Albumin 2.5 L (3.5-5.0) g/dL Lipase 6 L (8-78) U/L Urine Color Urine Appearance Urine pH (5.0-9.0) Ur Specific [place] (1.005-1.025) Urine Protein (Neg-Trace) mg/dL Urine Glucose (UA) (Negative) mg/dL Urine Ketones (Negative) mg/dL Urine Blood (Negative) Urine Nitrite (Negative) Ur Leukocyte Esterase (Negative) Urine RBC (0-2) /HPF Urine WBC (0-5) /HPF Ur Squamous Epith Cells (0-2) /HPF Urine Bacteria (None Seen) Hyaline Casts (0-2) /LPF Urine Yeast COVID-19 (DENY) Negative (Negative) COVID-19 Clin Com See Note Influenza Type A (JULIANN) Negative (Negative) Influenza Type B (JULIANN) Negative (Negative) Influenza A & B Note See Note 05/17/23 Range/Units 10:40 WBC (4.8-10.8) X10*3/uL RBC (4.20-5.50) X10*6/uL Hgb (12.0-16.0) g/dl Hct (37.0-47.0) % MCV (80.0-98.0) fL MCH (27.0-33.0) pg MCHC (31.0-35.0) g/dl RDW (11.0-16.0) % Plt Count (160-400) X10*3/uL MPV (9.4-12.3) fL Immature Gran % (Auto) Neut % (Auto) Lymph % (Auto) [place] % (Auto) Eos % (Auto) Baso % (Auto) Lymph # (Auto) [place] # (Auto) Eos # (Auto) Baso # (Auto) Abs Immat Gran (auto) Absolute Neuts (auto) Absolute Nucleated RBC (0.0-0.012) X10*3/uL Nucleated RBC % (auto) (0.0-0.2) /100WBC Neutrophils % (Manual) (45-73) % Band Neutrophils % (3-5) % Lymphocytes % (Manual) (20-40) % Abs Neuts (Manual) (2.0-8.3) X10*3/uL Lymphocytes # (Manual) (1.2-4.9) X10*3/uL Toxic Granulation Toxic Vacuolation Platelet Estimate (NORMAL) Large Platelets Plt Morphology Comment RBC Morphology Polychromasia /OIF Ovalocytes /OIF PT (11.1-13.3) SEC INR (0.9-1.1) Sodium (135-145) mmol/L Potassium (3.3-5.1) mmol/L Chloride (96-108) mmol/L Carbon Dioxide (22-29) mmol/L Anion Gap (12-20) BUN (9-16) mg/dL Creatinine (0.5-1.4) mg/dL Estim Creat Clear Calc Estimated GFR POC Glucose (60-115) mg/dL Random Glucose (60-115) mg/dL Lactic Acid (0.5-2.0) mmol/L Calcium (8.4-10.2) mg/dL Magnesium (1.6-2.6) mg/dL Total Bilirubin (0.0-1.0) mg/dL Direct Bilirubin (0.0-0.5) mg/dL AST (5-31) U/L ALT (0-31) U/L Alkaline Phosphatase (39-117) U/L Ammonia (13-55) umol/L Troponin I High Sens (<3.5-17.0) ng/L B-Natriuretic Peptide (<100) pg/mL Total Protein (6.5-8.0) g/dL Albumin (3.5-5.0) g/dL Lipase (8-78) U/L Urine Color Yellow Urine Appearance Turbid Urine pH 7.0 (5.0-9.0) Ur Specific [place] 1.015 (1.005-1.025) Urine Protein 100 (2+) H (Neg-Trace) mg/dL Urine Glucose (UA) 100 H (Negative) mg/dL Urine Ketones Negative (Negative) mg/dL Urine Blood Small (1+) H (Negative) Urine Nitrite Negative (Negative) Ur Leukocyte Esterase Large (3+) H (Negative) Urine RBC 6-10 H (0-2) /HPF Urine WBC >50 H (0-5) /HPF Ur Squamous Epith Cells 0-2 (0-2) /HPF Urine Bacteria Trace (None Seen) Hyaline Casts 6-10 (0-2) /LPF Urine Yeast Present COVID-19 (DENY) (Negative) COVID-19 Clin Com Influenza Type A (JULIANN) (Negative) Influenza Type B (JULIANN) (Negative) Influenza A & B Note Radiology Impression Discussion of test interpretation with radiology: I have reviewed the radiologist's reading. External Record Review External record reviewed: Inpatient record, Office record, Outpatient record, Prior outpatient labs, Prior outpatient radiology, Primary care record and Outside ED record Tests considered The following testing was considered but not selected: As above Critical Care Time Critical Care Time Critical Care Time: Yes Total Critical Care Time: 60 Attestation: I have personally provided critical care time exclusive of time spent on separately billable procedures. Time includes review of lab data, radiology results, discussion with consultants, and monitoring for potential decompensation. Intervention performed as documented. Discharge Plan Discharge Clinical Impression: Severe sepsis Patient Disposition: Admitted As Inpatient
[2023-05-17] MEDS: Dextrose 50 % 25 GM/50 ML SYRINGE IVPUSH ×2 (09:15→09:26)
[2023-05-17] MEDS: 0.9 % Sodium Chloride 1,000 ML 999 ML IV ×2 (09:26→09:27)
[2023-05-17 09:33] LABS: Glucose, Whole Blood 37 mg/dL (60-115)
[2023-05-17 09:33] LABS: Glucose, Whole Blood 57 mg/dL (60-115)
[2023-05-17 09:33] LABS: Glucose, Whole Blood 136 mg/dL (60-115)
[2023-05-17 09:48] LABS: Hematocrit 29.9 % (37.0-47.0); Mean Corpuscular HGB Conc 30.1 g/dl (31.0-35.0); Mean Corpuscular Hemoglobin 24.4 pg (27.0-33.0); Mean Platelet Volume 11.5 fL (9.4-12.3); Platelet Count 212 X10*3/uL (160-400); Red Blood Count 3.69 X10*6/uL (4.20-5.50); Red Cell Distribution Width 14.9 % (11.0-16.0); White Blood Count 23.9 X10*3/uL (4.8-10.8)
[2023-05-17 09:54] LABS: INTERNATIONAL NORM RATIO 1.1 (0.9-1.1); Prothrombin Time 13.1 SEC (11.1-13.3)
[2023-05-17 10:04] LABS: Ammonia 30 umol/L (13-55)
[2023-05-17 10:05] LABS: IDNOW Serial# 55D5AD1C
[2023-05-17 10:06] LABS: COVID-19 Test Negative (Negative)
[2023-05-17] MEDS: Piperacillin Sodium/Tazobactam 3.375 GM in 0.9 % Sodium Chloride 50 ML IV (10:07)
[2023-05-17 10:18] LABS: Glucose, Whole Blood 156 mg/dL (60-115)
[2023-05-17 10:21] LABS: Alanine Aminotransferase 53 U/L (0-31); Albumin Level 2.5 g/dL (3.5-5.0); Alkaline Phosphatase 271 U/L (39-117); Anion Gap 14 (12-20); Aspartate Amino Transferase 189 U/L (5-31); Bilirubin Direct 0.3 mg/dL (0.0-0.5); Bilirubin Total 0.5 mg/dL (0.0-1.0); Blood Urea Nitrogen 39 mg/dL (9-16); Carbon Dioxide 23 mmol/L (22-29); Chloride 102 mmol/L (96-108); Estimated Glomerular Filt Rate 24; Glucose Random 47 mg/dL (60-115); Lipase 6 U/L (8-78); Magnesium 2.5 mg/dL (1.6-2.6); Potassium 4.7 mmol/L (3.3-5.1); Sodium 134 mmol/L (135-145); Total Protein 6.1 g/dL (6.5-8.0)
[2023-05-17 10:36] LABS: Band Neutrophils Percent 28 % (3-5); Large Platelet PRESENT; Lymphocytes Absolute Manual 0.7 X10*3/uL (1.2-4.9); Lymphocytes Percent Manual 3 % (20-40); Neutrophils Absolute Manual 23.2 X10*3/uL (2.0-8.3); Neutrophils Percent Manual 69 % (45-73); Ovalocytes 1+ (5-14) /OIF; Platelet Estimate NORMAL (NORMAL); Platelet Morphology Comment NOTED; Polychromasia 1+ (0-2) /OIF; RBC Morphology NOTED; Toxic Granulation PRESENT; Toxic Vacuolation PRESENT
[2023-05-17 10:37] LABS: IDNOW Serial# 152EDE1D; Influenza A Negative (Negative); Influenza B2 Negative (Negative)
[2023-05-17 10:38] LABS: Lactic Acid 2.3 mmol/L (0.5-2.0)
--- NOTE | 2023-05-17 10:42 | PC.NURSE ---
straight catheterization performed. 150ml of cloudy/dark yellow urine noted immediately post output. documented in I&O section. urine pt tolerated well. pt remains hypotensive/tachycardic/tachypneic at this time. ED provider aware. vitals documented. pt remains a&ox3 at this time. pt aware to self, birthday, where she is. states that the year is 1949. unsure on why she is at [facility] today. no sob noted. slight wob noted. pt repositioned to comfort. sitting upright to promote patent airway. respirations even/slight labored. plan of care ongoing.
[2023-05-17 10:49] LABS: B Type Natriuretic Peptide 941 pg/mL (<100)
[2023-05-17 10:52] LABS: Appearance Urine Turbid; Color Urine Yellow; Glucose Urine UA 100 mg/dL (Negative); Leukocyte Esterase Urine Large (3+) (Negative); Nitrite Urine Negative (Negative); Specific Gravity - Urine 1.015 (1.005-1.025); UMIC TRIGGER UACC YES; Urine Blood Small (1+) (Negative); Urine Ketones Negative (Negative); Urine Protein 100 (2+) mg/dL (Neg-Trace)
[2023-05-17 10:57] LABS: Troponin-I High Sensitivity 728.9 ng/L (<3.5-17.0)
[2023-05-17] MEDS: Ertapenem Sodium 1 GM in 0.9 % Sodium Chloride 50 ML IV (10:57)
[2023-05-17] MEDS: Norepinephrine Bitartrate/D5W 8 MG/250 ML PLAST..BAG 10.04 MG IV (11:03)
[2023-05-17 11:04] LABS: Bacteria Urine Trace (None Seen); Squamous Epithelial Cell Urine 0-2 /HPF (0-2); UACC Culture Trigger YES; WBC Urine >50 /HPF (0-5)
--- NOTE | 2023-05-17 11:23 | PC.NURSE ---
Dr. Jurado bedside at this time. Dr. Jurado titrated Norepinephrine drip to 0.2mcg/kg/min at this time. titrated in JUN. MAP at 74 at this time. plan of care ongoing.
[2023-05-17 11:50] LABS: Glucose, Whole Blood 127 mg/dL (60-115)
[2023-05-17] MEDS: Albumin Human 25 % 100 ML IV ×2 (11:50→15:32)
[2023-05-17] MEDS: vancomycin/NS 2,000 MG/500 ML PLAST..BAG 250 MG IV (11:59)
--- NOTE | 2023-05-17 12:12 | PC.NURSE ---
this RN and BALJEET Puentes made multiple attempts in obtaining second IV access. unsuccessful. unable to administer all ordered medications d/t incompatibility. norepinephrine and and vancomycin hung/infusing at this time d/t being compatible. per dr. iraheta order - albumin on hold at this time.
[2023-05-17 12:14] LABS: Reflex Lactate? Lactic Acid Added
--- NOTE | 2023-05-17 12:34 | PC.NURSE ---
report given to BALJEET Tian in the ICU at this time. transport notified.
--- NOTE | 2023-05-17 12:52 | PHA.MEDREC ---
Pharmacy Consult ? Medication Reconciliation Pharmacy has completed the medication reconciliation. Patient recently discharged 05/03/23
--- NOTE | 2023-05-17 13:18 | PM.CCHP ---
History of Present Illness Date of Service: 05/17/23 Chief Complaint: Shock 73-year-old lady with underlying history of CLL, obesity, obstructive sleep apnea, diastolic dysfunction, COPD on supplemental O2 admitted on 05/17/2023 with septic shock likely with urinary source with poor response to initial IV fluid resuscitation requiring pressor support. Patient has been started on empiric antibiotics and admitted to intensive care unit. CT of abdomen/pelvis/chest are pending. Review of Systems Review of Systems: Yes Unobtainable due to mental condition Neurologic: Reports confusion Psychiatric: Psychiatric: Reports confusion REPLACED BY [facility] Past Medical History Medical History Congestive heart failure Essential hypertension Acute on chronic heart failure with preserved ejection fraction Acute and chronic respiratory failure with hypoxia (HFpEF) heart failure with preserved ejection fraction Morbid obesity COPD exacerbation CKD (chronic kidney disease) stage 3, GFR 30-59 ml/min LATONYA (obstructive sleep apnea) Anemia Hypoventilation associated with obesity COVID Congestive heart failure Acute respiratory failure with hypoxia Rash Heart block AV second degree Acute UTI Acute kidney injury superimposed on CKD Bradycardia Pleural effusion Acute respiratory failure Pneumonia due to COVID-19 virus Chronic lymphocytic leukemia (CLL), B-cell Dyspnea Congestive heart failure COVID-19 Hypoxia Influenza A CLL (chronic lymphocytic leukemia) Suspected deep tissue injury Klebsiella pneumonia Infection with ESBL Klebsiella oxytoca Lymphadenopathy, mediastinal Pleural effusion Congestive heart failure COVID Lower extremity edema Migraine HTN (hypertension) Pseudotumor cerebri PVD (peripheral vascular disease) Obesity CKD (chronic kidney disease) Diabetes mellitus with insulin therapy Hypothyroidism HLD (hyperlipidemia) Family History Family History Mother Heart attack, Onset Age: 92 Father Heart attack, Onset Age: 66 Other Diabetes Surgical History Surgical History S/P appendectomy H/O cataract extraction H/O hysterectomy for benign disease Hx of cholecystectomy Social History Social History Household Members: Other Household Members Other:: Assisted living facility Housing: Snf Alcohol intake: never Comment: bedrest Patient Tobacco Use Status: Former Tobacco user Second Hand Smoke Exposure: No Advance Directives: Yes Advance Directives on File: Yes Advance Directives Date on File: 09/26/20 service: No Current occupational status: disabled Meds Allergies Allergy/AdvReac Type Severity Reaction Status Date / Time oxycodone [From Percocet] Allergy Intermediate Rash Verified 05/17/23 09:33 lisinopril Allergy Unknown Unknown Verified 05/17/23 09:33 metoprolol AdvReac Severe bradycardia Verified 05/17/23 09:33 Active Medications: Current Medications Norepinephrine Bitartrate (Levophed) 8 mg in 250 mls @ 0 mls/hr IV .Q0M ALAN; Protocol Last Titration: 05/17/23 11:21 Dose: 0.2 mcg/kg/min, 40.16 mls/hr Albumin Human (Kedbumin 25 %) 100 mls @ 100 mls/hr IV Q1H ALAN Stop: 05/17/23 13:29 Last Infusion: 05/17/23 11:59 Dose: 0 mls/hr Home Medications Medication Instructions Recorded Confirmed Last Taken Type chlordiazepoxide HCl 10 mg capsule 10 mg PO BEDTIME 10/08/21 05/17/23 Unknown History citalopram 20 mg tablet 20 mg PO DAILY 10/08/21 05/17/23 Unknown History insulin lispro protamine-lispro 0 unit subcut QIDACHS 10/08/21 05/17/23 Unknown History 100 unit/mL (75-25) subcutaneous pen levothyroxine 175 mcg tablet 175 mcg PO DAILY@0600 10/08/21 05/17/23 Unknown History simvastatin 20 mg tablet 20 mg PO BEDTIME 10/08/21 05/17/23 Unknown History sitagliptin phosphate 100 mg 100 mg PO DAILY 10/08/21 05/17/23 Unknown History tablet (Januvia) latanoprost 0.005 % eye drops 1 drp ophthalmic (eye) BEDTIME 11/20/21 05/17/23 Unknown History albuterol sulfate 0.63 mg/3 mL 0.63 mg inhalation Q2H PRN 02/16/22 05/17/23 Unknown History solution for nebulization Shortness Of Breath Or Wheezing brinzolamide 1 %-brimonidine 0.2 % 1 drp ophthalmic-Right BID 02/16/22 05/17/23 Unknown History eye drops,suspension (Simbrinza) hpwefzgxsz-zalkrnetwjgvs-nnbejqky 1 tab PO Q6H PRN Headache 11/15/22 02/13/24 Unknown History 50 mg-325 mg-40 mg tablet coenzyme Q10 100 mg capsule 150 mg PO DAILY 02/16/22 05/17/23 Unknown History (CoQ-10) melatonin 5 mg tablet 5 mg PO BEDTIME 02/16/22 05/17/23 Unknown History prednisolone acetate 1 % eye 1 drp ophthalmic-Right DAILY 02/16/22 05/17/23 Unknown History drops,suspension timolol maleate 0.5 % eye drops 1 drp ophthalmic-Right BID 02/16/22 05/17/23 Unknown History carboxymethylcellulose sodium 1 % 1 drp ophthalmic (eye) BID 03/15/22 05/17/23 Unknown History eye drops (Artificial Tears (carboxymethylcellulose)) budesonide-formoterol HFA 160 2 puff inhalation BID 04/27/22 05/17/23 Unknown History mcg-4.5 mcg/actuation aerosol inhaler (Symbicort) umeclidinium 62.5 mcg/actuation 1 inh inhalation DAILY 04/27/22 05/17/23 Unknown History blister powder for inhalation (Incruse Ellipta) guaifenesin 600 mg tablet, 600 mg PO BID cough 06/08/22 05/17/23 Unknown History extended release 12 hr sodium phosphates 19 gram-7 118 ml [place] DAILY PRN Constipation 06/08/22 05/17/23 Unknown History gram/118 mL enema (Fleet Enema) levalbuterol HCl 1.25 mg/3 mL 1.25 mg inhalation QID 07/30/22 05/17/23 Unknown History solution for nebulization biotin 5 mg tablet 5 mg PO DAILY 08/11/22 05/17/23 Unknown History bisacodyl 10 mg rectal suppository 10 mg [place] DAILY PRN Constipation 08/11/22 05/17/23 Unknown History hydroxychloroquine 200 mg tablet 200 mg PO BID 08/11/22 05/17/23 Unknown History hydroxyzine HCl 25 mg tablet 25 mg PO DAILY 08/11/22 05/17/23 Unknown History lorazepam 0.5 mg tablet 0.5 mg PO BID Anxiety 08/11/22 05/17/23 Unknown History magnesium 200 mg tablet 200 mg PO DAILY 08/11/22 05/17/23 Unknown History riboflavin (vitamin B2) 400 mg 400 mg PO DAILY 08/11/22 05/17/23 Unknown History tablet prednisone 1 mg tablet 6 mg PO DAILY 10/27/22 05/17/23 Unknown History Lactobacillus acidophilus 1 tab PO BID 02/14/23 05/17/23 Unknown History (Acidophilus chewable tablet) bumetanide 1 mg tablet 2 mg PO BID@0800,1700 04/26/23 05/17/23 Unknown History diphenhydramine-zinc acetate 2 1 appl topical QSHIFT 04/26/23 05/17/23 Unknown History %-0.1 % topical cream loperamide 2 mg capsule 2 mg PO Q4H PRN Loose Stool 04/26/23 05/17/23 Unknown History methenamine hippurate 1 gram tablet 1 g PO BID 04/26/23 05/17/23 Unknown History nystatin 100,000 unit/gram topical 1 appl topical BID 04/26/23 05/17/23 Unknown History powder potassium chloride 20 mEq 20 meq PO BEDTIME 04/26/23 05/17/23 Unknown History tablet,extended release Physical Exam Vital Signs: Vital Signs: Last Vital Signs Temp 98.6 F 05/17/23 12:16 Pulse 103 H 05/17/23 12:16 Resp 20 05/17/23 12:16 BP 127/61 05/17/23 12:16 Pulse Ox 95 05/17/23 12:16 O2 Del Method Nasal Cannula 05/17/23 12:16 O2 Flow Rate 2 05/17/23 12:16 BMI result Body Mass Index 37.0 Const: General: no acute distress, alert and confusion Nutritional Appearance: obese Orientation/consciousness: confusion Eyes: Sclerae: sclerae normal EOM: EOMs intact bilaterally Neck: Neck: Yes no lymphadenopathy, Yes trachea midline and Yes supple Resp: Effort & Inspection: normal respiratory effort and no respiratory distress Auscultation: crackles (Mild bilateral) Cardio: Rate: tachycardic Rhythm: regular rhythm Heart sounds: no gallops, no murmurs and no rubs GI: Palpation (GI): Soft to palpation and Other GI palpation findings present ( Nontender) Auscultation: normal bowel sounds Neuro: General: confusion Extrem: General: Yes no pedal edema, No clubbing and No cyanosis Results Labs 05/17/23 09:39 05/17/23 09:39 Labs: Laboratory Results - last 24 hr 05/17/23 05/17/23 05/17/23 09:04 09:15 09:20 MCV MCH MCHC RDW Plt Count MPV Immature Gran % (Auto) Neut % (Auto) Lymph % (Auto) [place] % (Auto) Eos % (Auto) Baso % (Auto) Lymph # (Auto) [place] # (Auto) Eos # (Auto) Baso # (Auto) Abs Immat Gran (auto) Absolute Neuts (auto) Absolute Nucleated RBC Nucleated RBC % (auto) Neutrophils % (Manual) Band Neutrophils % Lymphocytes % (Manual) Abs Neuts (Manual) Lymphocytes # (Manual) Toxic Granulation Toxic Vacuolation Platelet Estimate Large Platelets Plt Morphology Comment RBC Morphology Polychromasia Ovalocytes PT INR Anion Gap Estim Creat Clear Calc Estimated GFR POC Glucose 37 L* 57 L* 136 H Random Glucose Lactic Acid Calcium Magnesium Total Bilirubin Direct Bilirubin AST ALT Alkaline Phosphatase Ammonia Troponin I High Sens B-Natriuretic Peptide Total Protein Albumin Lipase Urine Color Urine Appearance Urine pH Ur Specific [place] Urine Protein Urine Glucose (UA) Urine Ketones Urine Blood Urine Nitrite Ur Leukocyte Esterase Urine RBC Urine WBC Ur Squamous Epith Cells Urine Bacteria Hyaline Casts Urine Yeast COVID-19 (DENY) COVID-19 Clin Com Influenza Type A (JULIANN) Influenza Type B (JULIANN) Influenza A & B Note 05/17/23 05/17/23 05/17/23 09:39 10:03 10:14 MCV 81.0 MCH 24.4 L MCHC 30.1 L RDW 14.9 Plt Count 212 MPV 11.5 Immature Gran % (Auto) Cancelled Neut % (Auto) Cancelled Lymph % (Auto) Cancelled Wood[place] % (Auto) Cancelled Eos % (Auto) Cancelled Baso % (Auto) Cancelled Lymph # (Auto) Cancelled Woodson # (Auto) Cancelled Eos # (Auto) Cancelled Baso # (Auto) Cancelled Abs Immat Gran (auto) Cancelled Absolute Neuts (auto) Cancelled Absolute Nucleated RBC 0.000 Nucleated RBC % (auto) 0.0 Neutrophils % (Manual) 69 Band Neutrophils % 28 H Lymphocytes % (Manual) 3 L Abs Neuts (Manual) 23.2 H Lymphocytes # (Manual) 0.7 L Toxic Granulation PRESENT Toxic Vacuolation PRESENT Platelet Estimate NORMAL Large Platelets PRESENT Plt Morphology Comment NOTED RBC Morphology NOTED Polychromasia 1+ (0-2) Ovalocytes 1+ (5-14) PT 13.1 INR 1.1 Anion Gap 14 Estim Creat Clear Calc 31.0 Estimated GFR 24 POC Glucose 156 H Random Glucose 47 L* Lactic Acid 2.3 H* Calcium 8.0 L Magnesium 2.5 Total Bilirubin 0.5 Direct Bilirubin 0.3 AST 189 H ALT 53 H Alkaline Phosphatase 271 H Ammonia 30 Troponin I High Sens 728.9 H* D B-Natriuretic Peptide 941 H Total Protein 6.1 L Albumin 2.5 L Lipase 6 L Urine Color Urine Appearance Urine pH Ur Specific [place] Urine Protein Urine Glucose (UA) Urine Ketones Urine Blood Urine Nitrite Ur Leukocyte Esterase Urine RBC Urine WBC Ur Squamous Epith Cells Urine Bacteria Hyaline Casts Urine Yeast COVID-19 (DENY) Negative COVID-19 Clin Com See Note Influenza Type A (JULIANN) Negative Influenza Type B (JULIANN) Negative Influenza A & B Note See Note 05/17/23 05/17/23 10:40 11:46 MCV MCH MCHC RDW Plt Count MPV Immature Gran % (Auto) Neut % (Auto) Lymph % (Auto) Wood[place] % (Auto) Eos % (Auto) Baso % (Auto) Lymph # (Auto) [place] # (Auto) Eos # (Auto) Baso # (Auto) Abs Immat Gran (auto) Absolute Neuts (auto) Absolute Nucleated RBC Nucleated RBC % (auto) Neutrophils % (Manual) Band Neutrophils % Lymphocytes % (Manual) Abs Neuts (Manual) Lymphocytes # (Manual) Toxic Granulation Toxic Vacuolation Platelet Estimate Large Platelets Plt Morphology Comment RBC Morphology Polychromasia Ovalocytes PT INR Anion Gap Estim Creat Clear Calc Estimated GFR POC Glucose 127 H Random Glucose Lactic Acid Calcium Magnesium Total Bilirubin Direct Bilirubin AST ALT Alkaline Phosphatase Ammonia Troponin I High Sens B-Natriuretic Peptide Total Protein Albumin Lipase Urine Color Yellow Urine Appearance Turbid Urine pH 7.0 Ur Specific [place] 1.015 Urine Protein 100 (2+) H Urine Glucose (UA) 100 H Urine Ketones Negative Urine Blood Small (1+) H Urine Nitrite Negative Ur Leukocyte Esterase Large (3+) H Urine RBC 6-10 H Urine WBC >50 H Ur Squamous Epith Cells 0-2 Urine Bacteria Trace Hyaline Casts 6-10 Urine Yeast Present COVID-19 (DENY) COVID-19 Clin Com Influenza Type A (JULIANN) Influenza Type B (JULIANN) Influenza A & B Note Imaging Radiologist's Impressions: Impressions Chest X-Ray 05/17/23 09:34 IMPRESSION: 1. Right-sided central venous catheter terminates in the mid SVC. 2. Stable left retrocardiac radiopacity. 3. Small left pleural effusion. 4. Redemonstration of bilateral interstitial radiopacities. 5. Prominence of the pulmonary vasculature. Assessment and Plan (1) Septic shock: Status: Acute (2) Congestive heart failure: Qualifiers: Heart failure chronicity: acute Status: Acute (3) Morbid obesity: Status: Acute (4) CKD (chronic kidney disease) stage 3, GFR 30-59 ml/min: Status: Acute (5) Chronic lymphocytic leukemia (CLL), B-cell: Qualifiers: Leukemia Active/Remission status: without remission Qualified Code(s): C91.10 - Chronic lymphocytic leukemia of B-cell type not having achieved remission Status: Acute Plan Assessment: 71-year-old lady with multiple medical issues and multiple prior resistant infections admitted with septic shock with likely urinary source Plan: Neuro: Septic encephalopathy, expect to improve with resolution of sepsis. Cardiac: Septic shock, continue to titrate off pressor support as tolerated. Underlying diastolic dysfunction. Pulmonary: No acute issues. Underlying chronic hypoxic respiratory failure secondary to COPD on 2 L of supplemental oxygen. Renal: No acute issues. Underlying CKD stage 3. Endo: No acute issues. Underlying diabetes mellitus. GI: No acute issues. ID: Blood cultures are pending. Empirically covered with meropenem and vancomycin secondary to prior cultures and sensitivities. Heme/Onc: No acute issues. Psych: No acute issues. Miscellaneous: No acute issues. Prophylaxis: Heparin Diet: NPO Critical care time spent: 60 minutes
[2023-05-17] MEDS: Albuterol/Iprat 2.5/0.5MG 3 ML AMPUL.NEB INHALE ×2 (13:49→19:55)
[2023-05-17 13:56] LABS: Glucose, Whole Blood 162 mg/dL (60-115)
[2023-05-17 14:04] LABS: ~Lactic Acid-LAB USE ONLY 3.2 mmol/L (0.5-2.0)
[2023-05-17] MEDS: Hydrocortisone Sod Succ/PF 100 MG VIAL IVPUSH ×2 (15:28→21:56)
[2023-05-17 15:48] LABS: Reflex Lactate? 2 Y
--- NOTE | 2023-05-17 17:11 | HO.SKINPHOTO ---
Location: Buttocks/Upper Dorsal Thighs/Upper Inner Thighs Category: Maceration
[2023-05-17 17:13] LABS: ~Lactic Acid-LAB USE ONLY 1.6 mmol/L (0.5-2.0)
[2023-05-17] MEDS: Norepinephrine Bitartrate/D5W 8 MG/250 ML PLAST..BAG 32.13 MG IV (17:44)
[2023-05-17 17:45] LABS: Glucose, Whole Blood 173 mg/dL (60-115)
--- NOTE | 2023-05-17 20:01 | PHA.PROG ---
Admission Date/Time: May 17, 2023 11:28 Indication: Sepsis Weight in k.6 kg Adjusted body weight in Kg: [place] body weight in Kg: Obesity Dosing Indication % IBW: Serum Creatinine - Last 168 Hours 05/17/23 09:39 Creatinine 2.06 H Estimated CrCl and GFR - Last 168 Hours 05/17/23 09:39 Estim Creat Clear Calc 31.0 Estimated GFR 24 Vancomycin Loading Dose: 2000mg x 1 Current Vancomycin Dosing Regimen: 750 mg Q24H Vancomycin Monitoring using AUC goal of 400 - 600 range with trough as surrogate marker: 531 mg/L Date and Time for next Vancomycin Level to be drawn: 05/19/23 @1000 Pharmacist Comments on Vancomycin Plan: patient's BMI = 37.5; obese model being used. predicted trough of 17.9 mg/L. Will continue to monitor renal function and adjust accordingly Vancomycin dosing will take advantage of [employer] as a clinical decision support tool that uses Bayesian modeling to calculate individual patient's pharmacokinetic parameters and forecast the patient's drug concentration time course with the target goal AUC 24 range of 400 - 600 mg/L/hr.
[2023-05-18] VITALS (41 sets, daily range): BP systolic 87–153; BP diastolic 40–66; PULSE 70–89; RESP 11–20; TEMP 36.4–37.6; O2SAT 91–100; BMI 36.4
[2023-05-18 00:22] LABS: Glucose, Whole Blood 217 mg/dL (60-115)
[2023-05-18] MEDS: Insulin Lispro 100 UNIT/ML 3 ML VIAL SUBCUT ×5 (00:27→23:37)
[2023-05-18 05:31] LABS: VBG Base Excess -9.9 mmol/L; VBG HCO3 14 mmol/L (22-26); VBG pCO2 27 mmHg; VBG pH 7.32 (7.32-7.43); VBG pO2 42 mmHg
[2023-05-18 05:34] LABS: Venous Blood Gas Refer to POC result
[2023-05-18 05:45] LABS: Hematocrit 25.5 % (37.0-47.0); Hemoglobin 7.6 g/dl (12.0-16.0); Mean Corpuscular HGB Conc 29.8 g/dl (31.0-35.0); Mean Corpuscular Hemoglobin 24.8 pg (27.0-33.0); Mean Corpuscular Volume 83.3 fL (80.0-98.0); Mean Platelet Volume 11.3 fL (9.4-12.3); Platelet Count 191 X10*3/uL (160-400); Red Blood Count 3.06 X10*6/uL (4.20-5.50); Red Cell Distribution Width 15.2 % (11.0-16.0)
[2023-05-18] MEDS: Hydrocortisone Sod Succ/PF 100 MG VIAL IVPUSH ×3 (05:52→22:13)
[2023-05-18 06:02] LABS: WBC ABN SCTR FOR CBC 1
[2023-05-18 06:04] LABS: White Blood Count 36.2 X10*3/uL (4.8-10.8)
[2023-05-18 06:05] LABS: Alanine Aminotransferase 43 U/L (0-31); Alkaline Phosphatase 223 U/L (39-117); Anion Gap 22 (12-20); Aspartate Amino Transferase 53 U/L (5-31); Bilirubin Total 0.4 mg/dL (0.0-1.0); Blood Urea Nitrogen 39 mg/dL (9-16); Calcium 8.2 mg/dL (8.4-10.2); Carbon Dioxide 14 mmol/L (22-29); Chloride 106 mmol/L (96-108); Creatinine Clr Calc Pharmacy 27.6; Estimated Glomerular Filt Rate 21; Glucose Random 221 mg/dL (60-115); Magnesium 2.8 mg/dL (1.6-2.6); Sodium 137 mmol/L (135-145); Total Protein 6.2 g/dL (6.5-8.0)
[2023-05-18 06:20] LABS: Band Neutrophils Percent 15 % (3-5); Lymphocytes Absolute Manual 0.4 X10*3/uL (1.2-4.9); Lymphocytes Percent Manual 1 % (20-40); Metamyelocytes Absolute 0.4 X10*3/uL; Metamyelocytes Percent 1 %; Monocytes Absolute Manual 0.7 X10*3/uL (0.1-1.2); Monocytes Percent Manual 2 % (2-11); Neutrophils Absolute Manual 34.8 X10*3/uL (2.0-8.3); Neutrophils Percent Manual 81 % (45-73); RBC Morphology NOTED
[2023-05-18 06:23] LABS: Burr Cells 1+ (0-2) /OIF; Dohle Bodies PRESENT; Ovalocytes 1+ (5-14) /OIF; Toxic Granulation PRESENT; Toxic Vacuolation PRESENT
[2023-05-18 06:24] LABS: Large Platelet PRESENT; Platelet Estimate NORMAL (NORMAL); Platelet Morphology Comment NOTED; Schistocytes 1+ (0-2) /OIF
[2023-05-18] MEDS: Norepinephrine Bitartrate/D5W 8 MG/250 ML PLAST..BAG 12.05 MG IV (06:26)
--- NOTE | 2023-05-18 07:18 | HE.PHANOTE ---
Vanco dose adjustment Based on SCr, dose continued at 750mg Q24H. Next trough is 05/19 at 10am.
[2023-05-18] MEDS: Albuterol/Iprat 2.5/0.5MG 3 ML AMPUL.NEB INHALE ×3 (08:04→19:58)
[2023-05-18 09:02] LABS: Glucose, Whole Blood 209 mg/dL (60-115)
--- NOTE | 2023-05-18 09:39 | PM.CCPN ---
Subjective Subjective Date of Service: 05/18/23 Interval History: 73-year-old lady with underlying history of CLL, obesity, obstructive sleep apnea, diastolic dysfunction, COPD on supplemental O2 admitted on 05/17/2023 with septic shock likely with urinary source with poor response to initial IV fluid resuscitation requiring pressor support. Patient has been started on empiric antibiotics and admitted to intensive care unit. CT of abdomen/pelvis/chest without evidence obstruction, though does show mild left-sided hydronephrosis. Blood cultures are positive for Gram-negative rods. Critical Care Time (minutes): 45 Physical Exam Vital Signs: Vital Signs: Last Vital Signs Temp 97.6 F 05/18/23 08:00 Pulse 88 05/18/23 09:00 Resp 17 05/18/23 09:00 BP 115/51 L 05/18/23 09:00 Pulse Ox 100 05/18/23 09:00 O2 Del Method Nasal Cannula 05/18/23 09:00 O2 Flow Rate 2 05/18/23 09:00 BMI result Body Mass Index 36.4 Const: General: no acute distress and lethargic Nutritional Appearance: obese Orientation/consciousness: lethargic Eyes: Sclerae: sclerae normal EOM: EOMs intact bilaterally Neck: Neck: Yes no lymphadenopathy, Yes trachea midline and Yes supple Resp: Effort & Inspection: normal respiratory effort and no respiratory distress Auscultation: clear to auscultation bilaterally Cardio: Rate: regular rate Rhythm: regular rhythm Heart sounds: no gallops, no murmurs and no rubs GI: Palpation (GI): Soft to palpation and Other GI palpation findings present ( Nontender) Auscultation: normal bowel sounds Extrem: General: No clubbing, No cyanosis and Yes edema (1+ bilateral) Objective Data Labs 05/18/23 05:21 05/18/23 05:21 Labs: Laboratory Results - last 24 hr 05/17/23 05/17/23 05/17/23 09:04 09:15 09:20 WBC RBC Hgb Hct MCV MCH MCHC RDW Plt Count MPV Immature Gran % (Auto) Neut % (Auto) Lymph % (Auto) [place] % (Auto) Eos % (Auto) Baso % (Auto) Lymph # (Auto) [place] # (Auto) Eos # (Auto) Baso # (Auto) Abs Immat Gran (auto) Absolute Neuts (auto) Absolute Nucleated RBC Nucleated RBC % (auto) Neutrophils % (Manual) Band Neutrophils % Lymphocytes % (Manual) Monocytes % (Manual) Metamyelocytes % Abs Neuts (Manual) Lymphocytes # (Manual) Monocytes # (Manual) Metamyelocytes # Toxic Granulation Toxic Vacuolation Dohle Bodies Platelet Estimate Large Platelets Plt Morphology Comment RBC Morphology Polychromasia Ovalocytes [place] Cells Schistocytes PT INR VBG pH VBG pCO2 VBG pO2 VBG HCO3 VBG O2 Saturation VBG Base Excess Sodium Potassium Chloride Carbon Dioxide Anion Gap BUN Creatinine Estim Creat Clear Calc Estimated GFR POC Glucose 37 L* 57 L* 136 H Random Glucose Lactic Acid Lactic Acid F/U @ 2Hr Lactic Acid F/U @ 4Hr Calcium Phosphorus Magnesium Total Bilirubin Direct Bilirubin AST ALT Alkaline Phosphatase Ammonia Troponin I High Sens B-Natriuretic Peptide Total Protein Albumin Lipase Urine Color Urine Appearance Urine pH Ur Specific [place] Urine Protein Urine Glucose (UA) Urine Ketones Urine Blood Urine Nitrite Ur Leukocyte Esterase Urine RBC Urine WBC Ur Squamous Epith Cells Urine Bacteria Hyaline Casts Urine Yeast COVID-19 (DENY) COVID-19 Clin Com Influenza Type A (JULIANN) Influenza Type B (JULIANN) Influenza A & B Note 05/17/23 05/17/23 05/17/23 09:39 10:03 10:14 WBC 23.9 H RBC 3.69 L Hgb 9.0 L Hct 29.9 L MCV 81.0 MCH 24.4 L MCHC 30.1 L RDW 14.9 Plt Count 212 MPV 11.5 Immature Gran % (Auto) Cancelled Neut % (Auto) Cancelled Lymph % (Auto) Cancelled [place] % (Auto) Cancelled Eos % (Auto) Cancelled Baso % (Auto) Cancelled Lymph # (Auto) Cancelled [place] # (Auto) Cancelled Eos # (Auto) Cancelled Baso # (Auto) Cancelled Abs Immat Gran (auto) Cancelled Absolute Neuts (auto) Cancelled Absolute Nucleated RBC 0.000 Nucleated RBC % (auto) 0.0 Neutrophils % (Manual) 69 Band Neutrophils % 28 H Lymphocytes % (Manual) 3 L Monocytes % (Manual) Metamyelocytes % Abs Neuts (Manual) 23.2 H Lymphocytes # (Manual) 0.7 L Monocytes # (Manual) Metamyelocytes # Toxic Granulation PRESENT Toxic Vacuolation PRESENT Dohle Bodies Platelet Estimate NORMAL Large Platelets PRESENT Plt Morphology Comment NOTED RBC Morphology NOTED Polychromasia 1+ (0-2) Ovalocytes 1+ (5-14) [place] Cells Schistocytes PT 13.1 INR 1.1 VBG pH VBG pCO2 VBG pO2 VBG HCO3 VBG O2 Saturation VBG Base Excess Sodium 134 L Potassium 4.7 Chloride 102 Carbon Dioxide 23 Anion Gap 14 BUN 39 H Creatinine 2.06 H Estim Creat Clear Calc 31.0 Estimated GFR 24 POC Glucose 156 H Random Glucose 47 L* Lactic Acid 2.3 H* Lactic Acid F/U @ 2Hr Lactic Acid F/U @ 4Hr Calcium 8.0 L Phosphorus Magnesium 2.5 Total Bilirubin 0.5 Direct Bilirubin 0.3 AST 189 H ALT 53 H Alkaline Phosphatase 271 H Ammonia 30 Troponin I High Sens 728.9 H* D B-Natriuretic Peptide 941 H Total Protein 6.1 L Albumin 2.5 L Lipase 6 L Urine Color Urine Appearance Urine pH Ur Specific [place] Urine Protein Urine Glucose (UA) Urine Ketones Urine Blood Urine Nitrite Ur Leukocyte Esterase Urine RBC Urine WBC Ur Squamous Epith Cells Urine Bacteria Hyaline Casts Urine Yeast COVID-19 (DENY) Negative COVID-19 Clin Com See Note Influenza Type A (JULIANN) Negative Influenza Type B (JULIANN) Negative Influenza A & B Note See Note 05/17/23 05/17/23 05/17/23 10:40 11:46 13:44 WBC RBC Hgb Hct MCV MCH MCHC RDW Plt Count MPV Immature Gran % (Auto) Neut % (Auto) Lymph % (Auto) [place] % (Auto) Eos % (Auto) Baso % (Auto) Lymph # (Auto) [place] # (Auto) Eos # (Auto) Baso # (Auto) Abs Immat Gran (auto) Absolute Neuts (auto) Absolute Nucleated RBC Nucleated RBC % (auto) Neutrophils % (Manual) Band Neutrophils % Lymphocytes % (Manual) Monocytes % (Manual) Metamyelocytes % Abs Neuts (Manual) Lymphocytes # (Manual) Monocytes # (Manual) Metamyelocytes # Toxic Granulation Toxic Vacuolation Dohle Bodies Platelet Estimate Large Platelets Plt Morphology Comment RBC Morphology Polychromasia Ovalocytes [place] Cells Schistocytes PT INR VBG pH VBG pCO2 VBG pO2 VBG HCO3 VBG O2 Saturation VBG Base Excess Sodium Potassium Chloride Carbon Dioxide Anion Gap BUN Creatinine Estim Creat Clear Calc Estimated GFR POC Glucose 127 H Random Glucose Lactic Acid Lactic Acid F/U @ 2Hr 3.2 H* Lactic Acid F/U @ 4Hr Calcium Phosphorus Magnesium Total Bilirubin Direct Bilirubin AST ALT Alkaline Phosphatase Ammonia Troponin I High Sens B-Natriuretic Peptide Total Protein Albumin Lipase Urine Color Yellow Urine Appearance Turbid Urine pH 7.0 Ur Specific [place] 1.015 Urine Protein 100 (2+) H Urine Glucose (UA) 100 H Urine Ketones Negative Urine Blood Small (1+) H Urine Nitrite Negative Ur Leukocyte Esterase Large (3+) H Urine RBC 6-10 H Urine WBC >50 H Ur Squamous Epith Cells 0-2 Urine Bacteria Trace Hyaline Casts 6-10 Urine Yeast Present COVID-19 (DENY) COVID-19 Clin Com Influenza Type A (JULIANN) Influenza Type B (JULIANN) Influenza A & B Note 05/17/23 05/17/23 05/17/23 13:46 16:24 17:37 WBC RBC Hgb Hct MCV MCH MCHC RDW Plt Count MPV Immature Gran % (Auto) Neut % (Auto) Lymph % (Auto) [place] % (Auto) Eos % (Auto) Baso % (Auto) Lymph # (Auto) [place] # (Auto) Eos # (Auto) Baso # (Auto) Abs Immat Gran (auto) Absolute Neuts (auto) Absolute Nucleated RBC Nucleated RBC % (auto) Neutrophils % (Manual) Band Neutrophils % Lymphocytes % (Manual) Monocytes % (Manual) Metamyelocytes % Abs Neuts (Manual) Lymphocytes # (Manual) Monocytes # (Manual) Metamyelocytes # Toxic Granulation Toxic Vacuolation Dohle Bodies Platelet Estimate Large Platelets Plt Morphology Comment RBC Morphology Polychromasia Ovalocytes [place] Cells Schistocytes PT INR VBG pH VBG pCO2 VBG pO2 VBG HCO3 VBG O2 Saturation VBG Base Excess Sodium Potassium Chloride Carbon Dioxide Anion Gap BUN Creatinine Estim Creat Clear Calc Estimated GFR POC Glucose 162 H 173 H Random Glucose Lactic Acid Lactic Acid F/U @ 2Hr Lactic Acid F/U @ 4Hr 1.6 Calcium Phosphorus Magnesium Total Bilirubin Direct Bilirubin AST ALT Alkaline Phosphatase Ammonia Troponin I High Sens B-Natriuretic Peptide Total Protein Albumin Lipase Urine Color Urine Appearance Urine pH Ur Specific [place] Urine Protein Urine Glucose (UA) Urine Ketones Urine Blood Urine Nitrite Ur Leukocyte Esterase Urine RBC Urine WBC Ur Squamous Epith Cells Urine Bacteria Hyaline Casts Urine Yeast COVID-19 (DENY) COVID-19 Clin Com Influenza Type A (JULIANN) Influenza Type B (JULIANN) Influenza A & B Note 05/18/23 05/18/23 05/18/23 00:18 05:21 05:24 WBC 36.2 H* RBC 3.06 L Hgb 7.6 L Hct 25.5 L MCV 83.3 MCH 24.8 L MCHC 29.8 L RDW 15.2 Plt Count 191 MPV 11.3 Immature Gran % (Auto) Cancelled Neut % (Auto) Cancelled Lymph % (Auto) Cancelled [place] % (Auto) Cancelled Eos % (Auto) Cancelled Baso % (Auto) Cancelled Lymph # (Auto) Cancelled [place] # (Auto) Cancelled Eos # (Auto) Cancelled Baso # (Auto) Cancelled Abs Immat Gran (auto) Cancelled Absolute Neuts (auto) Cancelled Absolute Nucleated RBC 0.000 Nucleated RBC % (auto) 0.0 Neutrophils % (Manual) 81 H Band Neutrophils % 15 H Lymphocytes % (Manual) 1 L Monocytes % (Manual) 2 Metamyelocytes % 1 Abs Neuts (Manual) 34.8 H Lymphocytes # (Manual) 0.4 L Monocytes # (Manual) 0.7 Metamyelocytes # 0.4 Toxic Granulation PRESENT Toxic Vacuolation PRESENT Dohle Bodies PRESENT Platelet Estimate NORMAL Large Platelets PRESENT Plt Morphology Comment NOTED RBC Morphology NOTED Polychromasia Ovalocytes 1+ (5-14) [place] Cells 1+ (0-2) Schistocytes 1+ (0-2) PT INR VBG pH 7.32 VBG pCO2 27 VBG pO2 42 VBG HCO3 14 L VBG O2 Saturation 67.0 VBG Base Excess -9.9 Sodium 137 Potassium 5.0 Chloride 106 Carbon Dioxide 14 L Anion Gap 22 H BUN 39 H Creatinine 2.30 H Estim Creat Clear Calc 27.6 Estimated GFR 21 POC Glucose 217 H Random Glucose 221 H Lactic Acid Lactic Acid F/U @ 2Hr Lactic Acid F/U @ 4Hr Calcium 8.2 L Phosphorus 5.0 H Magnesium 2.8 H Total Bilirubin 0.4 Direct Bilirubin AST 53 H ALT 43 H Alkaline Phosphatase 223 H Ammonia Troponin I High Sens B-Natriuretic Peptide Total Protein 6.2 L Albumin 3.0 L Lipase Urine Color Urine Appearance Urine pH Ur Specific [place] Urine Protein Urine Glucose (UA) Urine Ketones Urine Blood Urine Nitrite Ur Leukocyte Esterase Urine RBC Urine WBC Ur Squamous Epith Cells Urine Bacteria Hyaline Casts Urine Yeast COVID-19 (DENY) COVID-19 Clin Com Influenza Type A (JULIANN) Influenza Type B (JULIANN) Influenza A & B Note 05/18/23 08:59 WBC RBC Hgb Hct MCV MCH MCHC RDW Plt Count MPV Immature Gran % (Auto) Neut % (Auto) Lymph % (Auto) [place] % (Auto) Eos % (Auto) Baso % (Auto) Lymph # (Auto) [place] # (Auto) Eos # (Auto) Baso # (Auto) Abs Immat Gran (auto) Absolute Neuts (auto) Absolute Nucleated RBC Nucleated RBC % (auto) Neutrophils % (Manual) Band Neutrophils % Lymphocytes % (Manual) Monocytes % (Manual) Metamyelocytes % Abs Neuts (Manual) Lymphocytes # (Manual) Monocytes # (Manual) Metamyelocytes # Toxic Granulation Toxic Vacuolation Dohle Bodies Platelet Estimate Large Platelets Plt Morphology Comment RBC Morphology Polychromasia Ovalocytes [place] Cells Schistocytes PT INR VBG pH VBG pCO2 VBG pO2 VBG HCO3 VBG O2 Saturation VBG Base Excess Sodium Potassium Chloride Carbon Dioxide Anion Gap BUN Creatinine Estim Creat Clear Calc Estimated GFR POC Glucose 209 H Random Glucose Lactic Acid Lactic Acid F/U @ 2Hr Lactic Acid F/U @ 4Hr Calcium Phosphorus Magnesium Total Bilirubin Direct Bilirubin AST ALT Alkaline Phosphatase Ammonia Troponin I High Sens B-Natriuretic Peptide Total Protein Albumin Lipase Urine Color Urine Appearance Urine pH Ur Specific [place] Urine Protein Urine Glucose (UA) Urine Ketones Urine Blood Urine Nitrite Ur Leukocyte Esterase Urine RBC Urine WBC Ur Squamous Epith Cells Urine Bacteria Hyaline Casts Urine Yeast COVID-19 (DENY) COVID-19 Clin Com Influenza Type A (JULIANN) Influenza Type B (JULIANN) Influenza A & B Note Microbiology Microbiology Results: Microbiology 05/17/23 10:03 Blood - Venous Blood Culture - Preliminary Gram negative sancho 05/17/23 10:03 Blood - Venous Blood Culture - Preliminary Gram negative sancho Progress Note: A&P Assessment and plan (1) Gram-negative bacteremia: Status: Acute (2) Septic shock: Status: Acute (3) Diabetes mellitus with hypoglycemia: Status: Acute (4) CKD (chronic kidney disease) stage 3, GFR 30-59 ml/min: Status: Acute (5) Morbid obesity: Status: Acute (6) Congestive heart failure: Status: Acute (7) LEO (acute kidney injury): Status: Acute (8) Chronic lymphocytic leukemia (CLL), B-cell: Status: Acute Plan Assessment: 71-year-old lady with multiple medical issues and multiple prior resistant infections admitted with septic shock with likely urinary source Plan: Neuro: Septic encephalopathy, expect to improve with resolution of sepsis. Cardiac: Septic shock, continue to titrate off pressor support as tolerated. Underlying diastolic dysfunction. Pulmonary: No acute issues. Underlying chronic hypoxic respiratory failure secondary to COPD on 2 L of supplemental oxygen. Renal: No acute issues. Underlying CKD stage 3. Endo: No acute issues. Underlying diabetes mellitus. Underlying history of adrenal suppression, now on stress dose steroids. GI: No acute issues. ID: Blood cultures with Gram-negative rods. Empirically covered with meropenem and vancomycin secondary to prior cultures and sensitivities. Heme/Onc: No acute issues. Psych: No acute issues. Miscellaneous: No acute issues. Prophylaxis: Heparin Diet: NPO Critical care time spent: 45 minutes Quality Stroke Does the patient have a stroke diagnosis?: No VTE Prior VTE?: No VTE Risk Level:: Medical - moderate - high VTE Device Contraindication: Treatment Not Indicated VTE Drug Contraindication: N/A - Med Ordered
[2023-05-18] MEDS: vancomycin HCL 750 MG in 0.9 % Sodium Chloride 250 ML 265 MG IV (11:57)
[2023-05-18 12:04] LABS: Glucose, Whole Blood 219 mg/dL (60-115)
--- NOTE | 2023-05-18 13:05 | MHC.CM.PN ---
IMM 05/18/23 DELIVERED TO NIECE/HCP AT BEDSIDE, MIKAELA REPORTS PT HAS BEEN AT [facility] SINCE NOVEMBER 2022 AND REPORTS GOAL IS TO BE ABLE TO TAKE PT HOME AND CARE FOR HER THERE ONCE HOSPITAL BED IS DELIVERED AND CLAIMS THEY HAVE ORDERED ONE. HOWEVER CM HAS SERIOUS CONCERNS REGARDUING FAMILIES ABILITY TO CARE FOR PT SHE WAS PREVIOUSLY TAKEN OUT OF [facility] PATERSON AFTER APPROX 1.5YRS AND PT'S GDTR WAS THE ONLY ONE HOME W/PT THE MAJORITY OF THE TIME AND IS UNABLE TO CARE FOR ALONE, PT'S NIECE/HCP WORKS AND IS NOT AVAILABLE TO CARE FOR PT, PT DOES NEED 2 PEOPLE FOR ANY PERSONAL CARE AND TO REPOSITION PT. MIKAELA ALSO HAS A HX OF LYING TO CM AND SAYING EQUIPMENT HAS NOT BEEN DELIVERED WHEN IT HAD BEEN DELIVERED 1-2 DAYS PRIOR. DC PLAN SHOULD BE FOR PT TO RETURN TO [facility] IT IS NOT A SAFE PLAN FOR PT TO RETURN HOME, ANTIC WHEN PT IMPROVES AND IS ALERT AND ORIENTED SHE WILL BE ABLE TO MAKE HER OWN DECISION TO RETURN TO FACILITY.
--- NOTE | 2023-05-18 16:24 | HO.WOUND ---
Wound Consult: Initial 73yr old?F admitted to [facility] on 05/17/23 - See progress notes and H&P for detailed history.? Wound consult placed for Bilateral Buttock and posterior thighs.? Arrival to bedside pt was mildly interactive throughout my consultation - she remains ICU level of care. ? Of note patient was incontinent of large yellow urine - Purewick was in place - incontinence care provided and purewick adjusted to attempt capture. Direct care team will monitor and if in effective in urinary containment will discontinue. Initial photo uploaded to EMR 05/18/23 with [address] treatment in place Right Sacrum Etiology: ??Stage 2 Pressure Injury POA Wound Bed: red nonblanchable tissue - scattered areas of partial thickness tissue loss - red pink wound bed friction and MASD components noted - there is a mild amount of induration noted Drainage / Odor: None noted Edges: ? Irregular [place] wound: MASD and Friction No Warmth noted Pain: pt did not respond to assessment Goals of Treatment: ? Moist wound healing and to protect from friction and Moisture Bilateral Buttock. Posterior Thighs and Bilateral Inner Thighs Etiology: ??MASD -IAD (Moisture Associated Skin Damage - Incontinence Associated Dermatitis) Wound Bed: scattered areas of blanchable red pink pigmentation scattered areas of partial thickness tissue loss - appears improved from photo review in chart review Drainage / Odor: None noted Edges: ? Irregular [place] wound: ?[place] intact moist tissue Pain: pt did not respond to assessment Goals of Treatment: ? Moist wound healing and to protect from friction and Moisture Left Thigh / Trochanter area noted for two small resolving lesions - partial thickness tissue loss - slow to davi at this time. Appears to be over previous injury site with question of scar tissue formation. No topical interventions needed aside from off loading and protect from friction and moisture. Recommendations: 1. Turn and Reposition every 2 hours and as needed for patient comfort.? Use pillows or wedges to support off loading positions. 2. Off Load all bony prominences with use of pillows and heel boots if needed.? Apply Preventative foams where needed. ? 3. Monitor for incontinence and moisture control, use barrier creams when needed for prevention and treatment. Purewick in place. 4. Provide adequate and supplemental nutrition.? 5. Order or Continue low air loss mattress. 6. Maintain blood glucose levels per Providers order. 7. Right Sacrum - Off Load Pressure - Cleanse with PH balance spray or wipes, pat dry. ?Apply thin layer of Triad to wound bed. Do not remove all of paste between applications as this may cause further skin damage.? Cover with foam dressing to aid in off loading and protection from friction. If incontinence remains may use Triad alone with out foam covering. 8. Bilateral Inner thighs, buttocks and posterior thighs - Off Load Pressure - Cleanse with PH balance spray or wipes, pat dry. ?Apply thin layer of Triad to wound bed - only pat and dab no scrub and rub when soiling occurs. Reapply thin layer PRN after each episode of incontinence. Re-consult wound care Nurse for wound deterioration or wound changes.
[2023-05-18 17:52] LABS: Glucose, Whole Blood 239 mg/dL (60-115)
[2023-05-18] MEDS: Albumin Human 25 % 100 ML IV (19:36)
[2023-05-18 23:33] LABS: Glucose, Whole Blood 221 mg/dL (60-115)
[2023-05-19] VITALS (30 sets, daily range): BP systolic 98–132; BP diastolic 37–80; PULSE 71–83; RESP 11–20; TEMP 36.1–37.1; O2SAT 94–100; BMI 36.4
[2023-05-19] MEDS: Albumin Human 25 % 100 ML IV (01:57)
[2023-05-19 05:45] LABS: Glucose, Whole Blood 234 mg/dL (60-115)
[2023-05-19] MEDS: Hydrocortisone Sod Succ/PF 100 MG VIAL IVPUSH ×3 (05:57→21:36)
[2023-05-19] MEDS: Insulin Lispro 100 UNIT/ML 3 ML VIAL SUBCUT ×3 (05:58→17:20)
[2023-05-19 06:04] LABS: VBG HCO3 16 mmol/L (22-26); VBG pCO2 25 mmHg; VBG pH 7.41 (7.32-7.43); VBG pO2 61 mmHg
[2023-05-19 06:05] LABS: Venous Blood Gas Refer to POC result
[2023-05-19 06:20] LABS: Basophils Absolute Auto 0.1 X10*3/uL (0.0-0.2); Basophils Percent Auto 0.3 % (0-2); Eosinophils Absolute Auto 0.1 X10*3/uL (0.0-0.4); Eosinophils Percent Auto 0.5 % (0-4); Hematocrit 23.3 % (37.0-47.0); Hemoglobin 7.1 g/dl (12.0-16.0); Imm Gran Abs Auto 0.22 X10*3/uL (0.00-0.03); Imm Gran Pct Auto 0.8 % (0.0-0.4); Lymphocytes Absolute Auto 0.6 X10*3/uL (1.2-4.9); Lymphocytes Percent Auto 2.3 % (20-40); MANUAL DIFF FLAG SCAN; Mean Corpuscular HGB Conc 30.5 g/dl (31.0-35.0); Mean Corpuscular Hemoglobin 24.7 pg (27.0-33.0); Mean Corpuscular Volume 80.9 fL (80.0-98.0); Mean Platelet Volume 11.7 fL (9.4-12.3); Monocytes Absolute Auto 1.3 X10*3/uL (0.1-1.2); Monocytes Percent Auto 4.5 % (2-11); Neutrophils Absolute Auto 25.6 x10*3/uL (2.0-8.3); Neutrophils Percent Auto 91.6 % (45-73); Platelet Count 134 X10*3/uL (160-400); Red Blood Count 2.88 X10*6/uL (4.20-5.50); Red Cell Distribution Width 15.3 % (11.0-16.0); SCAN SMEAR FLAG 1; White Blood Count 27.9 X10*3/uL (4.8-10.8)
[2023-05-19 06:33] LABS: Alanine Aminotransferase 26 U/L (0-31); Albumin Level 3.5 g/dL (3.5-5.0); Alkaline Phosphatase 226 U/L (39-117); Anion Gap 21 (12-20); Aspartate Amino Transferase 18 U/L (5-31); Bilirubin Total 0.2 mg/dL (0.0-1.0); Blood Urea Nitrogen 47 mg/dL (9-16); Calcium 8.5 mg/dL (8.4-10.2); Carbon Dioxide 16 mmol/L (22-29); Chloride 109 mmol/L (96-108); Creatinine Clr Calc Pharmacy 28.1; Estimated Glomerular Filt Rate 21; Glucose Random 267 mg/dL (60-115); Potassium 4.8 mmol/L (3.3-5.1); Sodium 141 mmol/L (135-145); Total Protein 6.4 g/dL (6.5-8.0)
[2023-05-19 07:16] LABS: SLIDE REVIEW VERIFIED
[2023-05-19] MEDS: Albuterol/Iprat 2.5/0.5MG 3 ML AMPUL.NEB INHALE ×3 (08:29→19:29)
[2023-05-19 10:47] LABS: Vancomycin Random 21.8 mcg/mL (15-20)
--- NOTE | 2023-05-19 11:14 | HE.PHANOTE ---
Trough returned at 21.8. Dose reduce to 500mg Q24H. Next trough 05/21 at 13:00.
[2023-05-19 11:16] LABS: Glucose, Whole Blood 215 mg/dL (60-115)
[2023-05-19] MEDS: vancomycin HCL 500 MG in 0.9 % Sodium Chloride 100 ML 110 MG IV (16:55)
[2023-05-19 17:08] LABS: Glucose, Whole Blood 235 mg/dL (60-115)
--- NOTE | 2023-05-19 18:54 | P.PNCC_ITS ---
Subjective Subjective Date of Service: 05/19/23 Interval History: 73-year-old female is admitted once again with Gram-negative bacteremia and positive urinalysis with a background history of ESBL Klebsiella infections in the past presents with altered mental status and hypotension the no clearly with septic criteria responding to IV fluids and briefly requiring Levophed support currently off Levophed and maintaining mean arterial pressures of 69 sinus rhythm at rate 79 oxygen saturations 99% and beginning to awaken and restore cognitive function She has a background of CLL and evidence of diastolic dysfunction of the left ventricle but preserved ejection fraction as well as oxygen-dependent COPD and also by history obstructive sleep apnea although she has had no episodes of oxygen desaturation here She remains off Levophed for greater than 24 hours slowly becoming more responsive but still is NPO and will probably need a swallow evaluation when she is transferred to the floor and again growing Klebsiella so she remains on meropenem therapy Critical Care Time (minutes): 45 Physical Exam 2 Vital Signs: Vital Signs: Last Vital Signs Temp 97.4 F 05/19/23 16:00 Pulse 82 05/19/23 17:00 Resp 17 05/19/23 17:00 BP 109/46 L 05/19/23 17:00 Pulse Ox 99 05/19/23 17:00 O2 Del Method Room Air 05/19/23 17:00 O2 Flow Rate 1 05/19/23 07:00 BMI result Body Mass Index 36.4 Systolic pressure is 100 mean arterial pressure at 65 and is arousable but lethargic No neck vein distension and good bilateral carotid upstrokes and LV ejection fraction preserved without segmental wall motion abnormality by bedside echo Abdomen is soft with no organomegaly Chest without adventitious sounds respiratory rate is only 14 oxygen saturation compensated at 96% No peripheral edema no acrocyanosis Objective Data Labs 05/20/23 05:04 05/20/23 05:04 Labs: Laboratory Results - last 24 hr 05/18/23 05/19/23 05/19/23 23:27 05:41 05:56 WBC 27.9 H RBC 2.88 L Hgb 7.1 L Hct 23.3 L MCV 80.9 MCH 24.7 L MCHC 30.5 L RDW 15.3 Plt Count 134 L D MPV 11.7 Immature Gran % (Auto) 0.8 H Neut % (Auto) 91.6 H Lymph % (Auto) 2.3 L [place] % (Auto) 4.5 Eos % (Auto) 0.5 Baso % (Auto) 0.3 Lymph # (Auto) 0.6 L [place] # (Auto) 1.3 H Eos # (Auto) 0.1 Baso # (Auto) 0.1 Abs Immat Gran (auto) 0.22 H Absolute Neuts (auto) 25.6 H Absolute Nucleated RBC 0.000 Nucleated RBC % (auto) 0.0 Smear Tech's Comments VERIFIED VBG pH VBG pCO2 VBG pO2 VBG HCO3 VBG O2 Saturation VBG Base Excess Sodium 141 Potassium 4.8 Chloride 109 H Carbon Dioxide 16 L Anion Gap 21 H BUN 47 H Creatinine 2.26 H Estim Creat Clear Calc 28.1 Estimated GFR 21 POC Glucose 221 H 234 H Random Glucose 267 H Calcium 8.5 Phosphorus 5.0 H Magnesium 3.0 H Total Bilirubin 0.2 AST 18 ALT 26 Alkaline Phosphatase 226 H Total Protein 6.4 L Albumin 3.5 Random Vancomycin 05/19/23 05/19/23 05/19/23 05:57 10:12 11:13 WBC RBC Hgb Hct MCV MCH MCHC RDW Plt Count MPV Immature Gran % (Auto) Neut % (Auto) Lymph % (Auto) [place] % (Auto) Eos % (Auto) Baso % (Auto) Lymph # (Auto) [place] # (Auto) Eos # (Auto) Baso # (Auto) Abs Immat Gran (auto) Absolute Neuts (auto) Absolute Nucleated RBC Nucleated RBC % (auto) Smear Tech's Comments VBG pH 7.41 VBG pCO2 25 VBG pO2 61 VBG HCO3 16 L VBG O2 Saturation 91.0 VBG Base Excess -7.0 Sodium Potassium Chloride Carbon Dioxide Anion Gap BUN Creatinine Estim Creat Clear Calc Estimated GFR POC Glucose 215 H Random Glucose Calcium Phosphorus Magnesium Total Bilirubin AST ALT Alkaline Phosphatase Total Protein Albumin Random Vancomycin 21.8 H 05/19/23 17:03 WBC RBC Hgb Hct MCV MCH MCHC RDW Plt Count MPV Immature Gran % (Auto) Neut % (Auto) Lymph % (Auto) [place] % (Auto) Eos % (Auto) Baso % (Auto) Lymph # (Auto) [place] # (Auto) Eos # (Auto) Baso # (Auto) Abs Immat Gran (auto) Absolute Neuts (auto) Absolute Nucleated RBC Nucleated RBC % (auto) Smear Tech's Comments VBG pH VBG pCO2 VBG pO2 VBG HCO3 VBG O2 Saturation VBG Base Excess Sodium Potassium Chloride Carbon Dioxide Anion Gap BUN Creatinine Estim Creat Clear Calc Estimated GFR POC Glucose 235 H Random Glucose Calcium Phosphorus Magnesium Total Bilirubin AST ALT Alkaline Phosphatase Total Protein Albumin Random Vancomycin Microbiology Microbiology Results: Microbiology 05/17/23 Unknown Urine clean catch - Urine malik top Urine Culture - Final 05/17/23 10:03 Blood - Venous Blood Culture - Final Klebsiella pneumoniae 05/17/23 10:03 Blood - Venous Blood Culture - Final Klebsiella pneumoniae 05/18/23 05:21 Blood - Venous Blood Culture - Preliminary No growth after 24 hours. Progress Note: A&P Assessment and plan (1) Gram-negative bacteremia: Status: Acute (2) Septic shock: Status: Acute (3) Severe sepsis: Status: Acute (4) Essential hypertension: Status: Acute (5) Congestive heart failure: Status: Acute (6) Morbid obesity: Status: Acute (7) Acute worsening of stage 3 chronic kidney disease: Status: Acute (8) Diabetes mellitus with hypoglycemia: Status: Acute (9) Hypotension: Status: Acute (10) Steroid-induced adrenal suppression: Status: Acute (11) Steroid dependence: Status: Acute (12) Urinary tract infection due to ESBL Klebsiella: Status: Acute (13) Pyelonephritis: Status: Acute (14) Altered mental status: Status: Acute (15) Chronic lymphocytic leukemia (CLL), B-cell: Status: Acute Plan So the plan is to maintain the meropenem and half swallow evaluate for introduction of diet and possibly physical therapy to start mobilizing her have her get out of bed Quality Stroke Does the patient have a stroke diagnosis?: No VTE Prior VTE?: No VTE Risk Level:: Medical - moderate - high VTE Device Contraindication: Treatment Not Indicated VTE Drug Contraindication: N/A - Med Ordered
[2023-05-19 23:58] LABS: Glucose, Whole Blood 238 mg/dL (60-115)
[2023-05-20] VITALS (18 sets, daily range): BP systolic 97–127; BP diastolic 45–68; PULSE 74–124; RESP 12–20; TEMP 36.1–37.7; O2SAT 94–100; BMI 37.1
[2023-05-20] MEDS: Insulin Lispro 100 UNIT/ML 3 ML VIAL SUBCUT ×5 (00:08→21:38)
[2023-05-20 05:12] LABS: VBG Base Excess -5.5 mmol/L; VBG HCO3 18 mmol/L (22-26); VBG pCO2 28 mmHg; VBG pO2 37 mmHg
[2023-05-20 05:20] LABS: Venous Blood Gas Refer to POC result
[2023-05-20 05:22] LABS: Basophils Percent Auto 0.1 % (0-2); Hematocrit 26.2 % (37.0-47.0); Hemoglobin 7.8 g/dl (12.0-16.0); Imm Gran Abs Auto 0.19 X10*3/uL (0.00-0.03); Lymphocytes Absolute Auto 0.7 X10*3/uL (1.2-4.9); Lymphocytes Percent Auto 3.8 % (20-40); MANUAL DIFF FLAG SCAN; Mean Corpuscular HGB Conc 29.8 g/dl (31.0-35.0); Mean Corpuscular Hemoglobin 24.1 pg (27.0-33.0); Mean Corpuscular Volume 81.1 fL (80.0-98.0); Monocytes Absolute Auto 0.8 X10*3/uL (0.1-1.2); Monocytes Percent Auto 4.2 % (2-11); Neutrophils Absolute Auto 17.7 x10*3/uL (2.0-8.3); Neutrophils Percent Auto 90.9 % (45-73); Platelet Count 124 X10*3/uL (160-400); Red Blood Count 3.23 X10*6/uL (4.20-5.50); Red Cell Distribution Width 15.7 % (11.0-16.0); SCAN SMEAR FLAG 1; White Blood Count 19.4 X10*3/uL (4.8-10.8)
[2023-05-20] MEDS: Hydrocortisone Sod Succ/PF 100 MG VIAL IVPUSH (05:41)
[2023-05-20] MEDS: Levothyroxine Sodium 175 MCG TABLET PO (05:45)
[2023-05-20 05:50] LABS: Glucose, Whole Blood 264 mg/dL (60-115)
[2023-05-20 05:51] LABS: Alanine Aminotransferase 20 U/L (0-31); Albumin Level 3.2 g/dL (3.5-5.0); Alkaline Phosphatase 195 U/L (39-117); Anion Gap 18 (12-20); Aspartate Amino Transferase 9 U/L (5-31); Bilirubin Total 0.3 mg/dL (0.0-1.0); Blood Urea Nitrogen 54 mg/dL (9-16); Calcium 8.6 mg/dL (8.4-10.2); Carbon Dioxide 16 mmol/L (22-29); Chloride 115 mmol/L (96-108); Creatinine Clr Calc Pharmacy 28.3; Estimated Glomerular Filt Rate 21; Glucose Random 279 mg/dL (60-115); Magnesium 3.2 mg/dL (1.6-2.6); Phosphorus 4.1 mg/dL (2.7-4.5); Potassium 4.5 mmol/L (3.3-5.1); Sodium 144 mmol/L (135-145); Total Protein 6.3 g/dL (6.5-8.0)
[2023-05-20 06:06] LABS: SLIDE REVIEW VERIFIED
--- NOTE | 2023-05-20 06:16 | PC.NURSE ---
Report given to BALJEET Cabello assuming care of patient on med surg at this time.
--- NOTE | 2023-05-20 06:49 | P.PNCC_ITS ---
Subjective Subjective Date of Service: 05/20/23 Interval History: 73-year-old moderately obese type 2 diabetic female with oxygen-dependent COPD diastolic LV dysfunction and comes back in with a repeat Gram-negative sepsis from a urinary source again ESBL Klebsiella and back on meropenem at this point but hypotension has resolved and is greater than 24 hours off Levophed gradually restoring cognitive function and I think she is ready to cooperate with a swallow study and remains on thyroid replacement and were weaning her stress dose steroids which she was on because of prednisone dependence but stable for transfer to the floor Critical Care Time (minutes): 30 Physical Exam 2 Vital Signs: Vital Signs: Last Vital Signs Temp 97.7 F 05/19/23 23:00 Pulse 76 05/20/23 05:00 Resp 15 05/20/23 05:00 BP 118/68 05/20/23 05:00 Pulse Ox 97 05/20/23 05:00 O2 Del Method Room Air 05/20/23 05:00 O2 Flow Rate 1 05/19/23 07:00 BMI result Body Mass Index 37.1 Stable vital signs and gradual temple of responsiveness nonfocal neurologically Abdomen soft no organomegaly Stable bedside echo with preserved ejection fraction over 55% Lungs without adventitious sounds Skin intact Objective Data Labs 05/20/23 05:04 05/20/23 05:04 Labs: Laboratory Results - last 24 hr 05/19/23 05/19/23 05/19/23 05:56 10:12 11:13 WBC 27.9 H RBC 2.88 L Hgb 7.1 L Hct 23.3 L MCV 80.9 MCH 24.7 L MCHC 30.5 L RDW 15.3 Plt Count 134 L D MPV 11.7 Immature Gran % (Auto) 0.8 H Neut % (Auto) 91.6 H Lymph % (Auto) 2.3 L [place] % (Auto) 4.5 Eos % (Auto) 0.5 Baso % (Auto) 0.3 Lymph # (Auto) 0.6 L [place] # (Auto) 1.3 H Eos # (Auto) 0.1 Baso # (Auto) 0.1 Abs Immat Gran (auto) 0.22 H Absolute Neuts (auto) 25.6 H Absolute Nucleated RBC 0.000 Nucleated RBC % (auto) 0.0 Smear Tech's Comments VERIFIED VBG pH VBG pCO2 VBG pO2 VBG HCO3 VBG O2 Saturation VBG Base Excess Sodium Potassium Chloride Carbon Dioxide Anion Gap BUN Creatinine Estim Creat Clear Calc Estimated GFR POC Glucose 215 H Random Glucose Calcium Phosphorus Magnesium Total Bilirubin AST ALT Alkaline Phosphatase Total Protein Albumin Random Vancomycin 21.8 H 05/19/23 05/19/23 05/20/23 17:03 23:54 05:04 WBC 19.4 H RBC 3.23 L Hgb 7.8 L Hct 26.2 L MCV 81.1 MCH 24.1 L MCHC 29.8 L RDW 15.7 Plt Count 124 L MPV 12.0 Immature Gran % (Auto) 1.0 H Neut % (Auto) 90.9 H Lymph % (Auto) 3.8 L [place] % (Auto) 4.2 Eos % (Auto) 0.0 Baso % (Auto) 0.1 Lymph # (Auto) 0.7 L [place] # (Auto) 0.8 Eos # (Auto) 0.0 Baso # (Auto) 0.0 Abs Immat Gran (auto) 0.19 H Absolute Neuts (auto) 17.7 H Absolute Nucleated RBC 0.000 Nucleated RBC % (auto) 0.0 Smear Tech's Comments VERIFIED VBG pH VBG pCO2 VBG pO2 VBG HCO3 VBG O2 Saturation VBG Base Excess Sodium 144 Potassium 4.5 Chloride 115 H Carbon Dioxide 16 L Anion Gap 18 BUN 54 H Creatinine 2.24 H Estim Creat Clear Calc 28.3 Estimated GFR 21 POC Glucose 235 H 238 H Random Glucose 279 H Calcium 8.6 Phosphorus 4.1 Magnesium 3.2 H Total Bilirubin 0.3 AST 9 ALT 20 Alkaline Phosphatase 195 H Total Protein 6.3 L Albumin 3.2 L Random Vancomycin 05/20/23 05/20/23 05:05 05:40 WBC RBC Hgb Hct MCV MCH MCHC RDW Plt Count MPV Immature Gran % (Auto) Neut % (Auto) Lymph % (Auto) [place] % (Auto) Eos % (Auto) Baso % (Auto) Lymph # (Auto) [place] # (Auto) Eos # (Auto) Baso # (Auto) Abs Immat Gran (auto) Absolute Neuts (auto) Absolute Nucleated RBC Nucleated RBC % (auto) Smear Tech's Comments VBG pH 7.40 VBG pCO2 28 VBG pO2 37 VBG HCO3 18 L VBG O2 Saturation 59.0 VBG Base Excess -5.5 Sodium Potassium Chloride Carbon Dioxide Anion Gap BUN Creatinine Estim Creat Clear Calc Estimated GFR POC Glucose 264 H Random Glucose Calcium Phosphorus Magnesium Total Bilirubin AST ALT Alkaline Phosphatase Total Protein Albumin Random Vancomycin Microbiology Microbiology Results: Microbiology 05/17/23 Unknown Urine clean catch - Urine malik top Urine Culture - Final 05/17/23 10:03 Blood - Venous Blood Culture - Final Klebsiella pneumoniae 05/17/23 10:03 Blood - Venous Blood Culture - Final Klebsiella pneumoniae 05/18/23 05:21 Blood - Venous Blood Culture - Preliminary No growth after 24 hours. Progress Note: A&P Assessment and plan (1) Gram-negative bacteremia: Status: Acute (2) Septic shock: Status: Acute (3) Severe sepsis: Status: Acute (4) Essential hypertension: Status: Acute (5) Congestive heart failure: Status: Acute (6) Morbid obesity: Status: Acute (7) Acute worsening of stage 3 chronic kidney disease: Status: Acute (8) Diabetes mellitus with hypoglycemia: Status: Acute (9) Hypotension: Status: Acute (10) Steroid dependence: Status: Acute (11) Steroid-induced adrenal suppression: Status: Acute (12) Urinary tract infection due to ESBL Klebsiella: Status: Acute (13) MRSA bacteremia: Status: Acute (14) Altered mental status: Status: Acute (15) LEO (acute kidney injury): Status: Acute (16) Steroid-induced hyperglycemia: Status: Acute (17) Chronic lymphocytic leukemia (CLL), B-cell: Status: Acute Plan Plan is to transfer to the floor today physical therapy to help get her out of bed and speech and swallow and to try to introduce a diet Quality Stroke Does the patient have a stroke diagnosis?: No VTE Prior VTE?: No VTE Risk Level:: Medical - moderate - high VTE Device Contraindication: Treatment Not Indicated VTE Drug Contraindication: N/A - Med Ordered
--- NOTE | 2023-05-20 07:00 | CA_ITS ---
Transthoracic Echocardiogram Patient (Last, First, Middle): Cindy Toney F Gender: Female Date of : 1950 Age: 73 Procedure Date: 05/20/2023 Procedure Type: Transthoracic Echocardiogram [place] [facility] [place]: 170.18 cm Weight: 107.05 kg BSA: 2.17 m2 Heart Rate: bpm BP: 114 / 61 mmHg Plate Developer: Referring MD: Alla LEMUS Symptoms: new afib Study Quality: Fair ECG Rhythm: Atrial Fibrillation Conclusions: - Normal left ventricular size and systolic function. There is mildly increased left ventricular wall thickness. The visually estimated ejection fraction is between 60-65%. - Mildly increased right ventricular cavity size. There is mildly decreased right ventricular systolic function. - There is severe mitral annular calcification. There is mild mitral valve regurgitation. Mean gradient across MV 12 mm Hg at HR 120/min. Findings MeaLeft Ventricle Normal left ventricular size and systolic function. There is mildly increased left ventricular wall thickness. The visually estimated ejection fraction is between 60-65%. There is no evidence of regional wall motion abnormalities. Diastolic function is indeterminate on the basis of available data. Right Ventricle Mildly increased right ventricular cavity size. There is mildly decreased right ventricular systolic function. Atria The left atrium is severely dilated. Aortic Valve The aortic valve was not well visualized. There is no aortic valve stenosis. There is no aortic valve regurgitation. Mitral Valve There is severe mitral annular calcification. There is mild mitral valve regurgitation. Mean gradient across MV 12 mm Hg at HR 120/min. Pulmonic Valve The pulmonic valve was not well visualized. Tricuspid Valve Normal tricuspid valve structure. There is no tricuspid valve regurgitation. Normal right atrial pressure. There is no evidence of pulmonary hypertension. Great Vessels All visible segments of the aorta are normal in size. Venous The inferior vena cava is normal in size and collapses greater than 50% with inspiration. Pericardium/Pleural There is no evidence of pericardial effusion. Prior Study Comparison Changes noted compared to prior study dated: 02/09/2023. Mean gradient across MV 12 at HR 120/min. Measurements 2D Linear Measurements IVSd: 1.26 0.6-0.9/0.6-1.0 cm LVIDd: 5.46 3.9-5.3/4.2-5.9 cm LVIDd Index: 2.52 2.4-3.2/2.2-3.1 cm/m2 LVIDs: 3.51 2.0-3.6 cm LVPWd: 1.25 0.7-1.1 cm Ao Root: 2.50 2.1-3.5 cm LA Diam: 4.50 2.7-3.8/3.0-4.0 cm LAIDs Index: 2.07 1.5-2.3 cm/m2 LV Mass: 357.23 67-162/88-224 g LV Mass Index: 164.62 43-95/49-115 g/m2 LVOT Diam: 2.00 3.0+(-)1.3 cm Mitral Valve MV VTI: 0.33 MV Pk Tristen: 2.26 MV Mn Tristen: 1.55 MV Pk Grad: 20.00 MV Mn Grad: 12.00 MV Pk E: 1.93 MV Decel Time: 107.00 E'Lateral: 8.27 E'Medial: 4.35 E/E' Med: 44.40 E/E' Lat: 23.30 PHT: 31.00 MVA PHT: 7.10 MVA Continuity: 1.36 Decel [place]: 18.02 Aortic Valve AoV Pk Tristen: 1.41 AoV Mn Tristen: 0.93 AoV VTI: 0.24 AoV Pk Grad: 8.00 Aov Mn Grad: 4.00 EVAN Cont.VTI: 1.88 LVOT LVOT Pk Tristen: 0.85 LVOT Mn Tristen: 0.52 LVOT VTI: 0.14 LVOT Pk Grad: 3.00 LVOT Mn Grad: 1.00 LVOT Diam: 2.00 LVOT Area: 3.14 Diastolic Function MV Pk E: 1.93 E'Medial: 4.35 E/E' Med: 44.40 E' Laterial: 8.27 E/E' Lat: 23.30 Right Ventricle TAPSE (mm): 12.00 Tricuspid Valve TR Pk Tristen: 2.17 TR Pk Grad: 19.00 RA Press: 3.00 RVSP: 22.00 Great Vessels Aorta Ao Root-2D: 2.50 2.0-3.7 cm Ao Asc: 3.10 2.1-3.4 cm Pulmonary Valve PV Pk Tristen: 0.91 Peak PV Grad: 3.00 Updated in Other Vendor System with Status of Final Kenji Green MD electronically signed on 05/20/2023 9:01:00 PM with status of Final
[2023-05-20] MEDS: Hydrocortisone Sod Succ/PF 100 MG VIAL 50 MG IVPUSH ×2 (08:06→21:25)
[2023-05-20] MEDS: Albuterol/Iprat 2.5/0.5MG 3 ML AMPUL.NEB INHALE ×2 (08:58→19:19)
--- NOTE | 2023-05-20 10:37 | MHC.CLN ---
Addendum entered by Sonali Morgan RD 05/20/23 10:53: SEEN BY CLASSIFICATION CONTROL CLERK TODAY WITH REC FOR PUREE CONSISTENCY AND THIN LIQUIDS. DIET=DIABETIC 1800 KCALS, PUREE CONSISTENCY. ADDING ENSURE MAX BID (300 KCALS, 60 G PROTEIN) TO PROMOTE WOUND HEALING. Original Note: F/U PT WITH INCREASED NUTRITION RISK R/T PRESSURE INJURY. CONTINUES NPO. SWALLOW EVAL PENDING. WHEN DIET TO ADVANCE, RECOMMEND ADDING ENSURE MAX BID (300 KCALS, 60 G PROTEIN) TO PROMOTE WOUND HEALING. MONITOR FOR DIET ADVANCEMENT AND SKIN INTEGRITY.
--- NOTE | 2023-05-20 11:20 | MHC.CM.PN ---
UPDATES SENT TO [facility] WHERE PT IS A BED HOLD SHE WILL NEED BLS TRANSPORT TO RETURN PER CM NOTES, FAMILY HAS ALSO EXPRESSED AN INTEREST IN TAKING PT HOME, HOWEVER IT IS UNCLEAR IF THIS IS A SAFE OR VIABLE OPTION CM WILL DISCUSS FURTHER WITH PT DIRECTLY CLOSER TO DC
--- NOTE | 2023-05-20 11:29 | MHC.SL.SWA ---
Speech Pathologist Impression: Risk of Aspiration Due to: Medically Fragile History of Pneumonia Dysphasia Diet Status: Liquid Consistency and Strategies for Safe Swallow: Liquid Intake Recommendation: Thin Liquid Intake Strategies: Solid Food Consistency: Dietary Recommendations: Pureed (NDD1) Additional Modifications to Solid Foods: Patient will initially need 1-1 feed due to her generalized weakness. Do not attempt if patient is overly lethargic and not engaged in meal. Patient tolerates drinking by straw but encourage small sips. Discontinue with clinical signs of aspiration, including coughing after swallow, increased upper airway noise, drop in O2 saturation. Oral Medication Intake: Crushed with Puree Please contact the pharmacy regarding appropriate crushable or liquid drug formulations that are available whenever modified delivery is recommended. Compensatory Strategies and Precautions to be Taken for Safe Swallow: Sitting Upright (90 deg) Liquids from Straw Liquids from Spoon Small Bites and Sips Alternate Liquids/Solids Rate of Ingestion Change Oral Check Supervision While Eating and Drinking for Safe Swallow: Total Assistance (1:1) Foods to Avoid: Sticky or congealed purees. Add sauces and gravies and blend well. Swallowing Recommended Treatments: Compens. Strategy Educat. Recommendation for Speech: Inpatient Speech Therapy Comment: Patient presents with a mild to moderate oral phase dysphagia, characterized by decreased strength, ROM of oral structures and edentulous state. Patient is medically fragile, and currently presents with lethargy and generalized weakness. Recommend start diet of PUREE (NDD1) with THIN liquids, pills crushed in puree. Patient will require one to one feeding, initially, due to her generalized weakness. Patient will likely be able to progress on diet textures as overall strength returns. STEEL HANDLER will continue to follow, re-assess and advance diet as warranted. RADHA VASQUEZ notified of recommendations by mayur alfaro RN in person. Frequency/Duration: Date Range for Service Req: Timeline to reassess: Python Web Developer Clinican/Clinical Fellow: No Supervisory Statement: I have reviewed and agree with the student/clinical fellow's documentation: N/A Speech Language Pathologist: Vaishnavi Philip M.A., CCC-STEEL HANDLER
[2023-05-20 12:01] LABS: Glucose, Whole Blood 321 mg/dL (60-115)
--- NOTE | 2023-05-20 12:43 | HO.PM.IMPN ---
Subjective Subjective Date of Service: 05/20/23 Interval History: seen and examined this morning follow up for septic shock, downgraded from the ICU this am very sleepy, but able to answer yes or no questions; was able to participate in swallow evaluation HR now elevated . no chest pain, sob, dizziness Review of Systems Review of Systems: Yes all other systems are reviewed and are negative Constitutional Constitutional: Denies chills and Denies fever(s) Cardiovascular Cardiovascular: Denies chest pain, Denies palpitations and Denies dyspnea Respiratory Respiratory: Denies dyspnea Endocrine Endocrine: Denies palpitations Physical Exam Vital Signs: Vital Signs: Last Vital Signs Temp 97.0 F 05/20/23 12:00 Pulse 120 H 05/20/23 12:00 Resp 18 05/20/23 12:00 BP 124/56 L 05/20/23 12:00 Pulse Ox 97 05/20/23 12:00 O2 Del Method Room Air 05/20/23 12:00 O2 Flow Rate 1 05/19/23 07:00 BMI result Body Mass Index 37.1 Const: Other: chronically ill appearing morbidly obese female lying in bed. appears comfortable, awake, sleepy able to answer basic questions. Nutritional Appearance: obese Resp: Effort & Inspection: normal respiratory effort, able to speak in complete sentences, no respiratory distress and no use of accessory muscles Auscultation: clear to auscultation bilaterally Cardio: Rate: regular rate GI: Inspection: No distended Palpation (GI): Soft to palpation and nontender Neuro: Other: able to move all four extremities, hand grasp equal bilaterally, tongue midline; no focal deficits appreciated Extrem: General: Yes no pedal edema Objective Data Active Medications Albuterol/Ipratropium (Albuterol/Iprat 2.5/0.5mg 3 Ml Ampul.Neb) 3 ml INHALE RQ6H WHILE AWAKE [facility] Last Admin: 05/20/23 08:58 Dose: 3 ml Documented By: NINA Hydrocortisone Sodium Succinate (Hydrocortisone Sod Succ/Pf 100 Mg Vial) 50 mg IVPUSH Q12H [facility] Last Admin: 05/20/23 08:06 Dose: 50 mg Documented By: DEEPAK Meropenem 1 gm/ Sodium (Chloride) 100 mls @ 200 mls/hr IV Q24H [facility] Last Infusion: 05/20/23 08:35 Dose: Infused Documented By: MUSHTAQ Insulin Human Lispro (Insulin Lispro 100 Unit/Ml 3 Ml Vial) 0 unit SUBCUT Q6H [facility]; Protocol Last Admin: 05/20/23 12:25 Dose: 8 unit Documented By: MUSHTAQ Levothyroxine Sodium (Levothyroxine Sodium 100 Mcg/5 Ml Vial) 75 mcg IVPUSH DAILY@0600 [facility] Last Admin: 05/20/23 06:11 Dose: Not Given Documented By: HEAVEN Non-Admin Reason: admin on prior order Labs 05/20/23 05:04 05/20/23 05:04 Labs: Laboratory Results - last 24 hr 05/19/23 05/19/23 05/20/23 17:03 23:54 05:04 MCV 81.1 MCH 24.1 L MCHC 29.8 L RDW 15.7 Plt Count 124 L MPV 12.0 Immature Gran % (Auto) 1.0 H Neut % (Auto) 90.9 H Lymph % (Auto) 3.8 L [place] % (Auto) 4.2 Eos % (Auto) 0.0 Baso % (Auto) 0.1 Lymph # (Auto) 0.7 L [place] # (Auto) 0.8 Eos # (Auto) 0.0 Baso # (Auto) 0.0 Abs Immat Gran (auto) 0.19 H Absolute Neuts (auto) 17.7 H Absolute Nucleated RBC 0.000 Nucleated RBC % (auto) 0.0 Smear Tech's Comments VERIFIED VBG pH VBG pCO2 VBG pO2 VBG HCO3 VBG O2 Saturation VBG Base Excess Anion Gap 18 Estim Creat Clear Calc 28.3 Estimated GFR 21 POC Glucose 235 H 238 H Random Glucose 279 H Calcium 8.6 Phosphorus 4.1 Magnesium 3.2 H Total Bilirubin 0.3 AST 9 ALT 20 Alkaline Phosphatase 195 H Total Protein 6.3 L Albumin 3.2 L 05/20/23 05/20/23 05/20/23 05:05 05:40 11:54 MCV MCH MCHC RDW Plt Count MPV Immature Gran % (Auto) Neut % (Auto) Lymph % (Auto) [place] % (Auto) Eos % (Auto) Baso % (Auto) Lymph # (Auto) [place] # (Auto) Eos # (Auto) Baso # (Auto) Abs Immat Gran (auto) Absolute Neuts (auto) Absolute Nucleated RBC Nucleated RBC % (auto) Smear Tech's Comments VBG pH 7.40 VBG pCO2 28 VBG pO2 37 VBG HCO3 18 L VBG O2 Saturation 59.0 VBG Base Excess -5.5 Anion Gap Estim Creat Clear Calc Estimated GFR POC Glucose 264 H 321 H Random Glucose Calcium Phosphorus Magnesium Total Bilirubin AST ALT Alkaline Phosphatase Total Protein Albumin Microbiology Microbiology Results: Microbiology 05/18/23 05:21 Blood Culture - Preliminary Blood - Venous No growth after 48 hours. 05/17/23 Unknown Urine Culture - Final Urine clean catch - Urine malik top 05/17/23 10:03 Blood Culture - Final Blood - Venous Klebsiella pneumoniae 05/17/23 10:03 Blood Culture - Final Blood - Venous Klebsiella pneumoniae Assessment and Plan (1) Gram-negative bacteremia: Status: Acute (2) Septic shock: Status: Acute (3) Atrial fibrillation: Status: Acute Plan This is a 73 year old female with history of HFpEF, CKD3, CLL, chronic hypoxic respiratory failure due to COPD, LATONYA, HTN, mood disorder, hypothyroidism, DM2, chronic steroid dependence admitted to the ICU for septic shock secondary to Klebsiella bacteremia, weaned off pressors and downgraded to the medical floor on 05/20 course now complicated by new onset afib with RVR new onset atrial flutter with RVR converted to new onset afib around 1 ekg with HR 120s will give one dose IV cardizem and follow for effect echo from october 2022 with preserved ef echo ordered cardiology consult placed chadsvasc score high, will start renal dosed eliquis for AC tele monitoring NSTEMI troponin on 05/17 around 700, no repeat repeat checked due to new afib and up to 3100 already started on eliquis for afib discussed with cardiology plan for echo as above Klebsiella bacteremia thought to be urinary source although urine culture negative b/l ureteral stents seen on abdominal CT from 05/17 -placed 11/2022 - ? need to be removed despite negative urine culture, will consult urology francis in place - also placed 11/2022 ? needs removal, will discuss with ID repeat blood culture negative increase dose of meropenem to appropriate renal dosing ID consult pending HfpEF hold bumex for now monitor fluid status closely LEO on CKD3 likely due to acute infection/sepsis hold bumex follow renal function closely metabolic acidosis likely due to above thrombocytopenia ?due to sepsis follow platelets acute on chronic normocytic anemia history of CLL no documentation of blood loss follow cbc mood disorder citalopram, Librium, lorazepam, hydroxyzine on hold since admission continue to hold due to sedation resume as indicated CLL hold acalabrutinib on prednisone 6 mg/d but now on stress-dose hydrocortisone - hydrocortisone weaned to 50 q12 today continue to wean DM2 seen by speech, able to start NDD1 diet with thin liquids continue SSI, follow POCs. mic traore on hold hypothyroidism continue synthroid check TSH COPD resume incruse ellipta, symbicort - home inhalers morbid obesity diet/exercise counseling HLD statin on hold VTE ppx -has not been on dvt ppx - will start eliquis for afib as above dispo - eventual return to SNF for STR will need PT eval attending - dr. andrade requires ongoing inpatient stay for management of new afib with rvr, klebsiella bacteremia, possible need for removal of francis catheter and ureteral stents, safe disposition Quality Stroke Does the patient have a stroke diagnosis?: No VTE Prior VTE?: No VTE Risk Level:: Medical - moderate - high VTE Device Contraindication: Treatment Not Indicated VTE Drug Contraindication: N/A - Med Ordered
[2023-05-20] MEDS: dilTIAZem HCL 50 MG/10 ML VIAL 10 MG IVPUSH (13:15)
[2023-05-20] MEDS: Apixaban 2.5 MG TABLET PO ×2 (14:03→21:25)
--- NOTE | 2023-05-20 14:14 | PC.NURSE ---
Patient in SR with first degree at start of shift. HR in the 80s. Around 1230, patient went into afib rhythm HR 120s. BP as charted. Alla Bullock notified. EKG completed showing afib RVR. IVP Cardizem ordered and administered x1. Patient still in Troponin drawn and resulted with critical high level. Patient still in Afib rhythm with HR in the 120s. Plan for Cardizem gtt to be started. Patient to be seen by cardiology. Plan for transfer to [facility] floor.
--- NOTE | 2023-05-20 14:50 | PC.NURSE ---
Report given to Med veterinary practitionerBALJEET Dickerson. Patient transferred up to room 486.
[2023-05-20] MEDS: Digoxin 0.25 MG TABLET PO ×2 (15:08→21:25)
[2023-05-20] MEDS: Metoprolol Tartrate 25 MG TABLET PO ×2 (15:09→21:53)
[2023-05-20 15:34] LABS: Glucose, Whole Blood 374 mg/dL (60-115)
[2023-05-20 15:56] LABS: TSH reflex Free T4 0.22 uIU/mL (0.32-4.0)
[2023-05-20 16:38] LABS: Free T4 (Free Thyroxine) 0.71 ng/dL (0.71-1.85)
[2023-05-20 17:26] LABS: Troponin-I High Sensitivity 2624.8 ng/L (<3.5-17.0)
[2023-05-20 19:32] LABS: Glucose, Whole Blood 321 mg/dL (60-115)
[2023-05-20 21:27] LABS: Glucose, Whole Blood 403 mg/dL (60-115)
[2023-05-20] MEDS: Acetaminophen 325 MG TABLET 650 MG PO (21:53)
[2023-05-21] VITALS (12 sets, daily range): BP systolic 99–129; BP diastolic 44–88; PULSE 45–122; RESP 16–20; TEMP 36.3–37.3; O2SAT 95–100; BMI 38.1
--- NOTE | 2023-05-21 | ECG_ITS ---
Test Reason : afib rvr Blood Pressure : / mmHG Vent. Rate : 114 BPM Atrial Rate : 000 BPM P-R Int : 000 ms QRS Dur : 114 ms QT Int : 344 ms P-R-T Axes : 000 128 -89 degrees QTc Int : 474 ms Atrial fibrillation with rapid ventricular response with premature ventricular or aberrantly conducted complexes Cannot rule out Inferior infarct (cited on or before 17-MAY-2023) Possible Anterolateral infarct (cited on or before 17-MAY-2023) Abnormal ECG When compared with ECG of 20-MAY-2023 12:51, No significant changes seen Referred By: Ro Julian Electronically Signed By:Kenji Green
[2023-05-21 05:21] LABS: Hemoglobin 9.2 g/dl (12.0-16.0); Mean Corpuscular HGB Conc 30.7 g/dl (31.0-35.0); Mean Corpuscular Hemoglobin 25.1 pg (27.0-33.0); Mean Corpuscular Volume 81.7 fL (80.0-98.0); Mean Platelet Volume 12.4 fL (9.4-12.3); Platelet Count 153 X10*3/uL (160-400); Red Blood Count 3.67 X10*6/uL (4.20-5.50); Red Cell Distribution Width 15.5 % (11.0-16.0)
[2023-05-21 05:23] LABS: Venous Blood Gas Refer to POC result
[2023-05-21 05:25] LABS: VBG Base Excess -4.4 mmol/L; VBG HCO3 18 mmol/L (22-26); VBG pCO2 25 mmHg; VBG pH 7.45 (7.32-7.43); VBG pO2 92 mmHg
[2023-05-21 05:40] LABS: Anion Gap 14 (12-20); Blood Urea Nitrogen 74 mg/dL (9-16); Calcium 8.2 mg/dL (8.4-10.2); Carbon Dioxide 19 mmol/L (22-29); Chloride 115 mmol/L (96-108); Creatinine Clr Calc Pharmacy 25.8; Estimated Glomerular Filt Rate 19; Glucose Random 449 mg/dL (60-115); Potassium 4.5 mmol/L (3.3-5.1); Sodium 143 mmol/L (135-145)
[2023-05-21] MEDS: Insulin Regular, Human 100 UNIT/ML 3 ML VIAL IVPUSH (06:42)
[2023-05-21] MEDS: Levothyroxine Sodium 175 MCG TABLET PO (06:43)
[2023-05-21 07:38] LABS: Glucose, Whole Blood 332 mg/dL (60-115)
[2023-05-21 08:18] LABS: Estimated Average Glucose 180 mg/dL; Hemoglobin A1c % 7.9 % (<6.0)
[2023-05-21] MEDS: Albuterol/Iprat 2.5/0.5MG 3 ML AMPUL.NEB INHALE ×3 (08:28→19:18)
[2023-05-21] MEDS: Fluticasone/Vilanterol 200/25 BLST.W.DEV 1 PUFF INHALE (08:28)
[2023-05-21] MEDS: Insulin Lispro 100 UNIT/ML 3 ML VIAL SUBCUT ×8 (08:43→21:15)
[2023-05-21] MEDS: Hydrocortisone Sod Succ/PF 100 MG VIAL 50 MG IVPUSH ×2 (09:09→21:13)
[2023-05-21] MEDS: Apixaban 2.5 MG TABLET PO ×2 (09:10→21:19)
[2023-05-21] MEDS: Heparin Sodium,Porcine Flush 50 UNITS, 0.9 % Sodium Chloride Flush 5 ML IVFLUSH (09:10)
--- NOTE | 2023-05-21 11:11 | PM.CNCAR ---
History of Present Illness History of Present Illness Date of Service: 05/21/23 Requesting physician: Ro Julian Chief complaint: septic shock, atrial flutter Narrative: 73-year-old female who we have been asked to help manage atrial flutter. She has background history of heart failure with preserved ejection fraction, chronic kidney disease, CLL, chronic hypoxic respiratory failure due to COPD, obstructive sleep apnea, hypertension, type 2 diabetes can chronic steroid dependence. She presented to intensive care unit secondary to Klebsiella bacteremia and septic shock. Admission EKG was concerning for atrial flutter. She has been downgraded to the floors and EKG here is clearly showing atrial flutter with variable block. Yesterday she was given loading dose of digoxin and was started on oral metoprolol. She had an echocardiogram performed which is showing mild RV dysfunction and mild RV dilation. LVEF was normal. No wall motion abnormalities were noted. Of note she also has severe mitral annular calcification and previously had gradient across the mitral valve concerning for some degree of mitral stenosis. Currently she was in atrial flutter at heart rate of 120 beats per minute and mitral valve gradient was 12 mm Hg. Talking to the patient, she said she is feeling better than yesterday. She also ate some breakfast this morning. She is denying any shortness of breath. Denying palpitations. Heart rates are in 90s on telemetry after the loading dose of digoxin was given and she has been on metoprolol orally. She was also transfused overnight. She is on Eliquis for anticoagulation. [facility] Past Medical History Medical History Congestive heart failure Essential hypertension Acute on chronic heart failure with preserved ejection fraction Acute and chronic respiratory failure with hypoxia (HFpEF) heart failure with preserved ejection fraction Morbid obesity COPD exacerbation CKD (chronic kidney disease) stage 3, GFR 30-59 ml/min LATONYA (obstructive sleep apnea) Anemia Hypoventilation associated with obesity COVID Congestive heart failure Acute respiratory failure with hypoxia Rash Heart block AV second degree Acute UTI Acute kidney injury superimposed on CKD Bradycardia Pleural effusion Acute respiratory failure Pneumonia due to COVID-19 virus Chronic lymphocytic leukemia (CLL), B-cell Dyspnea Congestive heart failure COVID-19 Hypoxia Influenza A CLL (chronic lymphocytic leukemia) Suspected deep tissue injury Klebsiella pneumonia Infection with ESBL Klebsiella oxytoca Lymphadenopathy, mediastinal Pleural effusion Congestive heart failure COVID Lower extremity edema Migraine HTN (hypertension) Pseudotumor cerebri PVD (peripheral vascular disease) Obesity CKD (chronic kidney disease) Diabetes mellitus with insulin therapy Hypothyroidism HLD (hyperlipidemia) Family History Family History Mother Heart attack, Onset Age: 92 Father Heart attack, Onset Age: 66 Other Diabetes Surgical History Surgical History S/P appendectomy H/O cataract extraction H/O hysterectomy for benign disease Hx of cholecystectomy Social History Social History Household Members: Other Household Members Other:: Assisted living facility Housing: Long Term Housing Other:: [facility] Do you presently have visiting nurse or other home services: Yes Alcohol intake: never Comment: bedrest Patient Tobacco Use Status: Former Tobacco user Second Hand Smoke Exposure: No Advance Directives Date on File: 09/26/20 service: No Current occupational status: disabled Meds Allergies Allergy/AdvReac Type Severity Reaction Status Date / Time oxycodone [From Percocet] Allergy Intermediate Rash Verified 05/17/23 09:33 lisinopril Allergy Unknown Unknown Verified 05/17/23 09:33 metoprolol AdvReac Severe bradycardia Verified 05/17/23 09:33 Active Medications: Current Medications Acetaminophen (Acetaminophen 325 Mg Tablet) 650 mg PO Q6H PRN PRN Reason: Pain, Mild (Pain Scale 1-3) Albuterol/Ipratropium (Albuterol/Iprat 2.5/0.5mg 3 Ml Ampul.Neb) 3 ml INHALE RQ6H WHILE AWAKE [facility] Last Admin: 05/21/23 08:28 Dose: 3 ml Apixaban (Apixaban 2.5 Mg Tablet) 2.5 mg PO BID [facility] Last Admin: 05/21/23 09:10 Dose: 2.5 mg Artificial Tears (Artificial Tears 15 Ml Drops) 1 drop EYE-BOTH BID [facility] Last Admin: 05/21/23 10:19 Dose: Not Given Heparin Sodium (Porcine) 50 (units/ Sodium Chloride 5 ml) 0 units IVFLUSH DAILY [facility] Last Admin: 05/21/23 09:10 Dose: 50 unit Dextrose (Dextrose 50 % 25 Gm/50 Ml Syringe) 25 gm IVPUSH Q15M PRN; Protocol PRN Reason: per Hypoglycemia Standing Ord. Fluticasone/Vilanterol (Fluticasone/Vilanterol 200/25 Blst.W.Dev) 1 puff INHALE RDAILY [facility] Last Admin: 05/21/23 08:28 Dose: 1 puff Glucose (Glucose Gel 15 Gm Gel..Gram.) 15 gm PO Q15M PRN; Protocol PRN Reason: per Hypoglycemia Standing Ord. Hydrocortisone Sodium Succinate (Hydrocortisone Sod Succ/Pf 100 Mg Vial) 50 mg IVPUSH Q12H [facility] Last Admin: 05/21/23 09:09 Dose: 50 mg Meropenem 1 gm/ Sodium (Chloride) 100 mls @ 200 mls/hr IV Q12H [facility] Last Infusion: 05/21/23 09:55 Dose: Infused Insulin Human Lispro (Insulin Lispro 100 Unit/Ml 3 Ml Vial) 0 unit SUBCUT [facility]; Protocol Last Admin: 05/21/23 08:43 Dose: 8 unit Insulin Human Lispro (Insulin Lispro 100 Unit/Ml 3 Ml Vial) 5 unit SUBCUT [facility] Last Admin: 05/21/23 09:10 Dose: 5 unit Levothyroxine Sodium (Levothyroxine Sodium 175 Mcg Tablet) 175 mcg PO DAILY@0600 [facility] Last Admin: 05/21/23 06:43 Dose: 175 mcg Metoprolol Tartrate (Metoprolol Tartrate 25 Mg Tablet) 25 mg PO BID [facility]; Protocol Last Admin: 05/21/23 09:12 Dose: Not Given Home Medications Medication Instructions Recorded Confirmed Last Taken Type chlordiazepoxide HCl 10 mg capsule 10 mg PO BEDTIME 10/08/21 05/17/23 Unknown History citalopram 20 mg tablet 20 mg PO DAILY 10/08/21 05/17/23 Unknown History insulin lispro protamine-lispro 0 unit subcut QIDAS 10/08/21 05/17/23 Unknown History 100 unit/mL (75-25) subcutaneous pen levothyroxine 175 mcg tablet 175 mcg PO DAILY@0600 10/08/21 05/17/23 Unknown History simvastatin 20 mg tablet 20 mg PO BEDTIME 10/08/21 05/17/23 Unknown History sitagliptin phosphate 100 mg 100 mg PO DAILY 10/08/21 05/17/23 Unknown History tablet (Januvia) latanoprost 0.005 % eye drops 1 drp ophthalmic (eye) BEDTIME 11/20/21 05/17/23 Unknown History albuterol sulfate 0.63 mg/3 mL 0.63 mg inhalation Q2H PRN 02/16/22 05/17/23 Unknown History solution for nebulization Shortness Of Breath Or Wheezing brinzolamide 1 %-brimonidine 0.2 % 1 drp ophthalmic-Right BID 02/16/22 05/17/23 Unknown History eye drops,suspension (Simbrinza) epmdbkzhpk-voraaycwigpbz-buazqfak 1 tab PO Q6H PRN Headache 02/16/22 05/17/23 Unknown History 50 mg-325 mg-40 mg tablet coenzyme Q10 100 mg capsule 150 mg PO DAILY 02/16/22 05/17/23 Unknown History (CoQ-10) melatonin 5 mg tablet 5 mg PO BEDTIME 02/16/22 05/17/23 Unknown History prednisolone acetate 1 % eye 1 drp ophthalmic-Right DAILY 02/16/22 05/17/23 Unknown History drops,suspension timolol maleate 0.5 % eye drops 1 drp ophthalmic-Right BID 02/16/22 05/17/23 Unknown History carboxymethylcellulose sodium 1 % 1 drp ophthalmic (eye) BID 03/15/22 05/17/23 Unknown History eye drops (Artificial Tears (carboxymethylcellulose)) budesonide-formoterol HFA 160 2 puff inhalation BID 04/27/22 05/17/23 Unknown History mcg-4.5 mcg/actuation aerosol inhaler (Symbicort) umeclidinium 62.5 mcg/actuation 1 inh inhalation DAILY 04/27/22 05/17/23 Unknown History blister powder for inhalation (Incruse Ellipta) guaifenesin 600 mg tablet, 600 mg PO BID cough 06/08/22 05/17/23 Unknown History extended release 12 hr sodium phosphates 19 gram-7 118 ml OK DAILY PRN Constipation 06/08/22 05/17/23 Unknown History gram/118 mL enema (Fleet Enema) levalbuterol HCl 1.25 mg/3 mL 1.25 mg inhalation QID 07/30/22 05/17/23 Unknown History solution for nebulization biotin 5 mg tablet 5 mg PO DAILY 08/11/22 05/17/23 Unknown History bisacodyl 10 mg rectal suppository 10 mg OK DAILY PRN Constipation 08/11/22 05/17/23 Unknown History hydroxychloroquine 200 mg tablet 200 mg PO BID 08/11/22 05/17/23 Unknown History hydroxyzine HCl 25 mg tablet 25 mg PO DAILY 08/11/22 05/17/23 Unknown History lorazepam 0.5 mg tablet 0.5 mg PO BID Anxiety 08/11/22 05/17/23 Unknown History magnesium 200 mg tablet 200 mg PO DAILY 08/11/22 05/17/23 Unknown History riboflavin (vitamin B2) 400 mg 400 mg PO DAILY 08/11/22 05/17/23 Unknown History tablet prednisone 1 mg tablet 6 mg PO DAILY 10/27/22 05/17/23 Unknown History Lactobacillus acidophilus 1 tab PO BID 02/14/23 05/17/23 Unknown History (Acidophilus chewable tablet) bumetanide 1 mg tablet 2 mg PO BID@0800,1700 04/26/23 05/17/23 Unknown History diphenhydramine-zinc acetate 2 1 appl topical QSHIFT 04/26/23 05/17/23 Unknown History %-0.1 % topical cream loperamide 2 mg capsule 2 mg PO Q4H PRN Loose Stool 04/26/23 05/17/23 Unknown History methenamine hippurate 1 gram tablet 1 g PO BID 04/26/23 05/17/23 Unknown History nystatin 100,000 unit/gram topical 1 appl topical BID 04/26/23 05/17/23 Unknown History powder potassium chloride 20 mEq 20 meq PO BEDTIME 04/26/23 05/17/23 Unknown History tablet,extended release Physical Exam Vital Signs: Vital Signs: Last Vital Signs Temp 97.3 F 05/21/23 07:29 Pulse 87 05/21/23 08:30 Resp 17 05/21/23 08:30 BP 99/44 L 05/21/23 07:29 Pulse Ox 100 05/21/23 07:29 O2 Del Method Room Air 05/21/23 07:29 O2 Flow Rate 1 05/19/23 07:00 BMI result Body Mass Index 38.1 GENERAL APPEARANCE: Morbidly obese, on supplemental oxygen. NECK: no carotid bruit, mild jugular venous distention. SKIN: no suspicious lesions, warm and dry. HEART: no murmurs, regular rate and rhythm. LUNGS: clear to auscultation bilaterally. ABDOMEN: soft, nontender. EXTREMITIES: no edema. PERIPHERAL PULSES: equal. Objective Labs and Meds 05/21/23 05:15 05/21/23 05:15 Lab results: Laboratory Results - last 24 hr 05/20/23 05/20/23 05/20/23 05:04 11:54 13:30 WBC RBC Hgb Hct MCV MCH MCHC RDW Plt Count MPV Absolute Nucleated RBC Nucleated RBC % (auto) Hold Purple Top SEE NOTE VBG pH VBG pCO2 VBG pO2 VBG HCO3 VBG O2 Saturation VBG Base Excess Sodium Potassium Chloride Carbon Dioxide Anion Gap BUN Creatinine Estim Creat Clear Calc Estimated GFR POC Glucose 321 H Random Glucose Estimat Average Glucose Hemoglobin A1c % Calcium Troponin I High Sens 3108.1 H* D TSH 0.22 L Free T4 0.71 Hold Yellow Top See Note Blood Type Antibody Screen Crossmatch 05/20/23 05/20/23 05/20/23 15:09 16:41 18:23 WBC RBC Hgb Hct MCV MCH MCHC RDW Plt Count MPV Absolute Nucleated RBC Nucleated RBC % (auto) Hold Purple Top VBG pH VBG pCO2 VBG pO2 VBG HCO3 VBG O2 Saturation VBG Base Excess Sodium Potassium Chloride Carbon Dioxide Anion Gap BUN Creatinine Estim Creat Clear Calc Estimated GFR POC Glucose 374 H* Random Glucose Estimat Average Glucose Hemoglobin A1c % Calcium Troponin I High Sens 2624.8 H* TSH Free T4 Hold Yellow Top Blood Type B Positive Antibody Screen NEGATIVE Crossmatch See Detail 05/20/23 05/20/23 05/21/23 19:16 21:23 05:15 WBC 17.0 H RBC 3.67 L Hgb 9.2 L Hct 30.0 L MCV 81.7 MCH 25.1 L MCHC 30.7 L RDW 15.5 Plt Count 153 L MPV 12.4 H Absolute Nucleated RBC 0.000 Nucleated RBC % (auto) 0.0 Hold Purple Top VBG pH VBG pCO2 VBG pO2 VBG HCO3 VBG O2 Saturation VBG Base Excess Sodium 143 Potassium 4.5 Chloride 115 H Carbon Dioxide 19 L Anion Gap 14 BUN 74 H Creatinine 2.49 H Estim Creat Clear Calc 25.8 Estimated GFR 19 POC Glucose 321 H 403 H* Random Glucose 449 H* Estimat Average Glucose 180 Hemoglobin A1c % 7.9 H Calcium 8.2 L Troponin I High Sens TSH Free T4 Hold Yellow Top Blood Type Antibody Screen Crossmatch 05/21/23 05/21/23 05:17 07:34 WBC RBC Hgb Hct MCV MCH MCHC RDW Plt Count MPV Absolute Nucleated RBC Nucleated RBC % (auto) Hold Purple Top VBG pH 7.45 H VBG pCO2 25 VBG pO2 92 VBG HCO3 18 L VBG O2 Saturation 100.0 VBG Base Excess -4.4 Sodium Potassium Chloride Carbon Dioxide Anion Gap BUN Creatinine Estim Creat Clear Calc Estimated GFR POC Glucose 332 H Random Glucose Estimat Average Glucose Hemoglobin A1c % Calcium Troponin I High Sens TSH Free T4 Hold Yellow Top Blood Type Antibody Screen Crossmatch Imaging Radiologist's impression: Impressions Head CT 05/21/23 04:20 IMPRESSION: 1. No acute intracranial pathology. 2. Chronic microangiopathy and generalized cerebral volume loss. 3. Right maxillary and right sphenoid sinus disease which were present previously. Assessment and Plan (1) Atrial flutter: Status: Acute (2) Gram-negative bacteremia: Status: Acute (3) Chronic diastolic heart failure: Status: Acute (4) Elevated troponin: Status: Acute Plan 73-year-old female presenting for septic shock due to Klebsiella bacteremia. She is on meropenem. On admission she was also noticed to have atrial flutter. She has elevated troponin levels which are trending down. This is type 2 injury due to atrial flutter and sepsis. Heart rates are better controlled after loading dose of digoxin was given and she is on metoprolol 25 mg twice a day. Blood pressure is borderline. Start her on digoxin 125 mcg on Tuesday, Tuesday and Tuesday only. She should not get daily digoxin with her current creatinine clearance. He has been started on apixaban 2.5 mg twice a day. Based on her weight and age she should be on 5 mg twice a day. She has high gradient across the mitral valve but heart rate was 120 beats per minute. I think gradients for high due to mitral annular calcification and tachycardia. This can be assessed further as her heart rate improves or if she reverts to sinus rhythm. Hypoglycemic due to chronic steroid use and she is currently on hydrocortisone 50 mg IV b.i.d.. We will follow along with you. Thank you for allowing me to participate in the care of your patient. Please feel free to contact me if you have any questions. Procedures Date of Service Date of Service: 05/21/23
[2023-05-21 11:50] LABS: Glucose, Whole Blood 390 mg/dL (60-115)
--- NOTE | 2023-05-21 12:01 | HO.PM.IMPN ---
Subjective Subjective Date of Service: 05/21/23 Interval History: seen and examined this morning follow up for septic shock, downgraded from the ICU sleepy but more awake no chest pain, sob, dizziness Review of Systems Review of Systems: Yes all other systems are reviewed and are negative Constitutional Constitutional: Denies chills and Denies fever(s) Cardiovascular Cardiovascular: Denies chest pain, Denies palpitations and Denies dyspnea Respiratory Respiratory: Denies dyspnea Endocrine Endocrine: Denies palpitations Physical Exam Vital Signs: Vital Signs: Last Vital Signs Temp 97.4 F 05/21/23 11:29 Pulse 86 05/21/23 11:29 Resp 16 05/21/23 11:29 BP 102/56 L 05/21/23 11:29 Pulse Ox 98 05/21/23 11:29 O2 Del Method Room Air 05/21/23 11:29 O2 Flow Rate 1 05/19/23 07:00 BMI result Body Mass Index 38.1 Appearing in no acute distress lung sounds are clear to auscultation heart regular rate rhythm, clear S1, S2 positive bowel sounds, abdomen is soft, nontende, obese r neuro patient is alert x3, no focal deficits Objective Data Active Medications Acetaminophen (Acetaminophen 325 Mg Tablet) 650 mg PO Q6H PRN PRN Reason: Pain, Mild (Pain Scale 1-3) Albuterol/Ipratropium (Albuterol/Iprat 2.5/0.5mg 3 Ml Ampul.Neb) 3 ml INHALE RQ6H WHILE AWAKE [facility] Last Admin: 05/21/23 08:28 Dose: 3 ml Documented By: REGAN Apixaban (Apixaban 2.5 Mg Tablet) 2.5 mg PO BID [facility] Last Admin: 05/21/23 09:10 Dose: 2.5 mg Documented By: MARY GRACE Artificial Tears (Artificial Tears 15 Ml Drops) 1 drop EYE-BOTH BID [facility] Last Admin: 05/21/23 10:19 Dose: Not Given Documented By: MARY GRACE Non-Admin Reason: called pharmacy for this med Heparin Sodium (Porcine) 50 (units/ Sodium Chloride 5 ml) 0 units IVFLUSH DAILY [facility] Last Admin: 05/21/23 09:10 Dose: 50 unit Documented By: MARY GRACE Dextrose (Dextrose 50 % 25 Gm/50 Ml Syringe) 25 gm IVPUSH Q15M PRN; Protocol PRN Reason: per Hypoglycemia Standing Ord. Fluticasone/Vilanterol (Fluticasone/Vilanterol 200/25 Blst.W.Dev) 1 puff INHALE RDAILY [facility] Last Admin: 05/21/23 08:28 Dose: 1 puff Documented By: REGAN Glucose (Glucose Gel 15 Gm Gel..Gram.) 15 gm PO Q15M PRN; Protocol PRN Reason: per Hypoglycemia Standing Ord. Hydrocortisone Sodium Succinate (Hydrocortisone Sod Succ/Pf 100 Mg Vial) 50 mg IVPUSH Q12H [facility] Last Admin: 05/21/23 09:09 Dose: 50 mg Documented By: MARY GRACE Meropenem 1 gm/ Sodium (Chloride) 100 mls @ 200 mls/hr IV Q12H [facility] Last Infusion: 05/21/23 09:55 Dose: Infused Documented By: MARY GRACE Insulin Human Lispro (Insulin Lispro 100 Unit/Ml 3 Ml Vial) 0 unit SUBCUT QIDACHS [facility]; Protocol Last Admin: 05/21/23 08:43 Dose: 8 unit Documented By: MARY GRACE Insulin Human Lispro (Insulin Lispro 100 Unit/Ml 3 Ml Vial) 5 unit SUBCUT QIDACHS [facility] Last Admin: 05/21/23 09:10 Dose: 5 unit Documented By: MARY GRACE Levothyroxine Sodium (Levothyroxine Sodium 175 Mcg Tablet) 175 mcg PO DAILY@0600 [facility] Last Admin: 05/21/23 06:43 Dose: 175 mcg Documented By: PIA Metoprolol Tartrate (Metoprolol Tartrate 25 Mg Tablet) 25 mg PO BID [facility]; Protocol Last Admin: 05/21/23 09:12 Dose: Not Given Documented By: MARY GRACE Non-Admin Reason: soft BP-provider held med Labs 05/21/23 05:15 05/21/23 05:15 Labs: Laboratory Results - last 24 hr 05/20/23 05/20/23 05/20/23 05:04 11:54 13:30 MCV MCH MCHC RDW Plt Count MPV Absolute Nucleated RBC Nucleated RBC % (auto) Hold Purple Top SEE NOTE VBG pH VBG pCO2 VBG pO2 VBG HCO3 VBG O2 Saturation VBG Base Excess Anion Gap Estim Creat Clear Calc Estimated GFR POC Glucose 321 H Random Glucose Estimat Average Glucose Hemoglobin A1c % Calcium Troponin I High Sens 3108.1 H* D TSH 0.22 L Free T4 0.71 Hold Yellow Top See Note Blood Type Antibody Screen Crossmatch 05/20/23 05/20/23 05/20/23 15:09 16:41 18:23 MCV MCH MCHC RDW Plt Count MPV Absolute Nucleated RBC Nucleated RBC % (auto) Hold Purple Top VBG pH VBG pCO2 VBG pO2 VBG HCO3 VBG O2 Saturation VBG Base Excess Anion Gap Estim Creat Clear Calc Estimated GFR POC Glucose 374 H* Random Glucose Estimat Average Glucose Hemoglobin A1c % Calcium Troponin I High Sens 2624.8 H* TSH Free T4 Hold Yellow Top Blood Type B Positive Antibody Screen NEGATIVE Crossmatch See Detail 05/20/23 05/20/23 05/21/23 19:16 21:23 05:15 MCV 81.7 MCH 25.1 L MCHC 30.7 L RDW 15.5 Plt Count 153 L MPV 12.4 H Absolute Nucleated RBC 0.000 Nucleated RBC % (auto) 0.0 Hold Purple Top VBG pH VBG pCO2 VBG pO2 VBG HCO3 VBG O2 Saturation VBG Base Excess Anion Gap 14 Estim Creat Clear Calc 25.8 Estimated GFR 19 POC Glucose 321 H 403 H* Random Glucose 449 H* Estimat Average Glucose 180 Hemoglobin A1c % 7.9 H Calcium 8.2 L Troponin I High Sens TSH Free T4 Hold Yellow Top Blood Type Antibody Screen Crossmatch 05/21/23 05/21/23 05/21/23 05:17 07:34 11:35 MCV MCH MCHC RDW Plt Count MPV Absolute Nucleated RBC Nucleated RBC % (auto) Hold Purple Top VBG pH 7.45 H VBG pCO2 25 VBG pO2 92 VBG HCO3 18 L VBG O2 Saturation 100.0 VBG Base Excess -4.4 Anion Gap Estim Creat Clear Calc Estimated GFR POC Glucose 332 H 390 H* Random Glucose Estimat Average Glucose Hemoglobin A1c % Calcium Troponin I High Sens TSH Free T4 Hold Yellow Top Blood Type Antibody Screen Crossmatch Microbiology Microbiology Results: Microbiology 05/18/23 05:21 Blood Culture - Preliminary Blood - Venous No growth after 48 hours. Assessment and Plan (1) Gram-negative bacteremia: Status: Acute (2) Septic shock: Status: Acute (3) Atrial fibrillation: Status: Acute Plan This is a 73 year old female with history of HFpEF, CKD3, CLL, chronic hypoxic respiratory failure due to COPD, LATONYA, HTN, mood disorder, hypothyroidism, DM2, chronic steroid dependence admitted to the ICU for septic shock secondary to Klebsiella bacteremia, weaned off pressors and downgraded to the medical floor on 05/20 course now complicated by new onset afib with RVR New onset atrial flutter with RVR converted to new onset afib around 1 ekg with HR 120s will give one dose IV cardizem and follow for effect echo from october 2022 with preserved ef echo ordered cardiology consult placed chadsvasc score high, will start renal dosed eliquis for AC tele monitoring NSTEMI troponin on 05/17 around 700, no repeat repeat checked due to new afib and up to 3100 already started on eliquis for afib discussed with cardiology Normal echo without wma Klebsiella bacteremia thought to be urinary source although urine culture negative b/l ureteral stents seen on abdominal CT from 05/17 -placed 11/2022 - ? need to be removed despite negative urine culture, will consult urology francis in place - also placed 11/2022 ? needs removal, will discuss with ID repeat blood culture negative increase dose of meropenem to appropriate renal dosing ID consult pending HfpEF hold bumex for now monitor fluid status closely LEO on CKD3 likely due to acute infection/sepsis hold bumex follow renal function closely metabolic acidosis likely due to above thrombocytopenia ?due to sepsis follow platelets acute on chronic normocytic anemia history of CLL no documentation of blood loss follow cbc mood disorder citalopram, Librium, lorazepam, hydroxyzine on hold since admission continue to hold due to sedation resume as indicated CLL hold acalabrutinib on prednisone 6 mg/d but now on stress-dose hydrocortisone - hydrocortisone weaned to 50 q12 today continue to wean DM2 seen by speech, able to start NDD1 diet with thin liquids continue SSI, follow POCs. A1C 7.9 hypothyroidism continue synthroid COPD incruse ellipta, symbicort morbid obesity diet/exercise counseling HLD statin on hold VTE ppx -Eliquis attending - dr. Barajas requires ongoing inpatient stay for management of new afib with rvr, klebsiella bacteremia, possible need for removal of francis catheter and ureteral stents, safe disposition Quality Stroke Does the patient have a stroke diagnosis?: No VTE Prior VTE?: No VTE Risk Level:: Medical - moderate - high VTE Device Contraindication: Treatment Not Indicated VTE Drug Contraindication: N/A - Med Ordered
[2023-05-21] MEDS: Nystatin Powder 15 GM BOTTLE 1 APPL TOPICAL ×2 (14:50→21:20)
[2023-05-21] MEDS: Metoprolol Tartrate 5 MG/5 ML VIAL IVPUSH (14:50)
[2023-05-21 16:50] LABS: Glucose, Whole Blood 274 mg/dL (60-115)
[2023-05-21 20:39] LABS: Glucose, Whole Blood 235 mg/dL (60-115)
[2023-05-21] MEDS: Metoprolol Tartrate 25 MG TABLET PO (21:19)
[2023-05-21] MEDS: Artificial Tears 15 ML DROPS 1 DROP EYE-BOTH (21:20)
[2023-05-22] VITALS (12 sets, daily range): BP systolic 106–156; BP diastolic 51–84; PULSE 91–141; RESP 16–20; TEMP 36.1–37.2; O2SAT 95–100; BMI 37.1
[2023-05-22] MEDS: Levothyroxine Sodium 175 MCG TABLET PO (06:33)
[2023-05-22 07:34] LABS: Glucose, Whole Blood 314 mg/dL (60-115)
[2023-05-22 07:50] LABS: Estimated Glomerular Filt Rate 22
[2023-05-22] MEDS: Fluticasone/Vilanterol 200/25 BLST.W.DEV 1 PUFF INHALE (08:11)
[2023-05-22] MEDS: Albuterol/Iprat 2.5/0.5MG 3 ML AMPUL.NEB INHALE (08:11)
[2023-05-22] MEDS: Metoprolol Tartrate 25 MG TABLET PO (09:04)
[2023-05-22] MEDS: predniSONE 10 MG TABLET PO (09:04)
[2023-05-22] MEDS: Apixaban 2.5 MG TABLET PO (09:04)
[2023-05-22] MEDS: Insulin Lispro 100 UNIT/ML 3 ML VIAL SUBCUT ×8 (09:05→21:04)
[2023-05-22] MEDS: Artificial Tears 15 ML DROPS 1 DROP EYE-BOTH ×2 (09:05→21:09)
[2023-05-22] MEDS: Nystatin Powder 15 GM BOTTLE 1 APPL TOPICAL ×3 (09:05→21:09)
[2023-05-22] MEDS: Heparin Sodium,Porcine Flush 50 UNITS, 0.9 % Sodium Chloride Flush 5 ML IVFLUSH (09:07)
--- NOTE | 2023-05-22 11:13 | P.PNIM_ITS ---
Subjective Subjective Date of Service: 05/22/23 Interval History: seen and examined this morning follow up for septic shock, downgraded from the ICU sleepy but more awake no chest pain, sob, dizziness Review of Systems Review of Systems: Yes all other systems are reviewed and are negative Constitutional Constitutional: Denies chills and Denies fever(s) Cardiovascular Cardiovascular: Denies chest pain, Denies palpitations and Denies dyspnea Respiratory Respiratory: Denies dyspnea Endocrine Endocrine: Denies palpitations Physical Exam 2 Vital Signs: Vital Signs: Last Vital Signs Temp 97.0 F 05/22/23 08:00 Pulse 91 05/22/23 08:12 Resp 18 05/22/23 08:12 BP 133/70 05/22/23 08:00 Pulse Ox 100 05/22/23 08:00 O2 Del Method Room Air 05/22/23 08:00 O2 Flow Rate 1 05/19/23 07:00 BMI result Body Mass Index 37.1 Appearing in no acute distress lung sounds are clear to auscultation heart regular rate rhythm, clear S1, S2 positive bowel sounds, abdomen is soft, nontender neuro patient is alert x3, no focal deficits Objective Data Active Medications Acetaminophen (Acetaminophen 325 Mg Tablet) 650 mg PO Q6H PRN PRN Reason: Pain, Mild (Pain Scale 1-3) Albuterol/Ipratropium (Albuterol/Iprat 2.5/0.5mg 3 Ml Ampul.Neb) 3 ml INHALE RQ6H WHILE AWAKE [facility] Last Admin: 05/22/23 08:11 Dose: 3 ml Documented By: LUIS Apixaban (Apixaban 2.5 Mg Tablet) 2.5 mg PO BID [facility] Last Admin: 05/22/23 09:04 Dose: 2.5 mg Documented By: MARY GRACE Artificial Tears (Artificial Tears 15 Ml Drops) 1 drop EYE-BOTH BID [facility] Last Admin: 05/22/23 09:05 Dose: 1 drop Documented By: MARY GRACE Heparin Sodium (Porcine) 50 (units/ Sodium Chloride 5 ml) 0 units IVFLUSH DAILY [facility] Last Admin: 05/22/23 09:07 Dose: 50 unit Documented By: MARY GRACE Dextrose (Dextrose 50 % 25 Gm/50 Ml Syringe) 25 gm IVPUSH Q15M PRN; Protocol PRN Reason: per Hypoglycemia Standing Ord. Fluticasone/Vilanterol (Fluticasone/Vilanterol 200/25 Blst.W.Dev) 1 puff INHALE RDAILY [facility] Last Admin: 05/22/23 08:11 Dose: 1 puff Documented By: LUIS Glucose (Glucose Gel 15 Gm Gel..Gram.) 15 gm PO Q15M PRN; Protocol PRN Reason: per Hypoglycemia Standing Ord. Meropenem 1 gm/ Sodium (Chloride) 100 mls @ 200 mls/hr IV Q12H [facility] Last Infusion: 05/22/23 09:50 Dose: Infused Documented By: MARY GRACE Insulin Human Lispro (Insulin Lispro 100 Unit/Ml 3 Ml Vial) 0 unit SUBCUT QIDAS [facility]; Protocol Last Admin: 05/22/23 09:05 Dose: 8 unit Documented By: MARY GRACE Insulin Human Lispro (Insulin Lispro 100 Unit/Ml 3 Ml Vial) 5 unit SUBCUT QIDACHS [facility] Last Admin: 05/22/23 09:05 Dose: 5 unit Documented By: MARY GRACE Levothyroxine Sodium (Levothyroxine Sodium 175 Mcg Tablet) 175 mcg PO DAILY@0600 [facility] Last Admin: 05/22/23 06:33 Dose: 175 mcg Documented By: SHELLYTRRafael Metoprolol Succinate (Metoprolol Succinate Er 50 Mg Tab.Er.24h) 50 mg PO DAILY [facility]; Protocol Nystatin (Nystatin Powder 15 Gm Bottle) 1 appl TOPICAL TID [facility]; Protocol Last Admin: 05/22/23 09:05 Dose: 1 appl Documented By: MARY GRACE Prednisone (Prednisone 10 Mg Tablet) 10 mg PO DAILY [facility] Last Admin: 05/22/23 09:04 Dose: 10 mg Documented By: MARY GRACE Labs 05/21/23 05:15 05/22/23 07:12 Labs: Laboratory Results - last 24 hr 05/21/23 05/21/23 05/21/23 11:35 16:46 20:21 Estim Creat Clear Calc Estimated GFR POC Glucose 390 H* 274 H 235 H 05/22/23 05/22/23 07:12 07:28 Estim Creat Clear Calc 29.0 Estimated GFR 22 POC Glucose 314 H Assessment and Plan (1) Gram-negative bacteremia: Status: Acute (2) Septic shock: Status: Acute (3) Atrial fibrillation: Status: Acute Plan This is a 73 year old female with history of HFpEF, CKD3, CLL, chronic hypoxic respiratory failure due to COPD, LATONYA, HTN, mood disorder, hypothyroidism, DM2, chronic steroid dependence admitted to the ICU for septic shock secondary to Klebsiella bacteremia, weaned off pressors and downgraded to the medical floor on 05/20 course now complicated by new onset afib with RVR New onset atrial flutter with RVR echo from october 2022 with preserved ef echo EF 60-65% cardiology consult>start Digoxin MWF chadsvasc score high, Eliquis 5mg BID Intermittent episodes of RVR, metoprolol 5 mg IV as needed metoprolol xl increased to 75mg NSTEMI troponin on 05/17 around 700, no repeat repeat checked due to new afib and up to 3100 already started on eliquis for afib discussed with cardiology Normal echo without wma Klebsiella bacteremia thought to be urinary source although urine culture negative b/l ureteral stents seen on abdominal CT from 05/17 -placed 11/2022 - ? need to be removed despite negative urine culture, will consult urology francis in place - also placed 11/2022 ? needs removal, will discuss with ID repeat blood culture negative increase dose of meropenem to appropriate renal dosing ID consult pending HfpEF hold bumex for now monitor fluid status closely LEO on CKD3. Creat trending down likely due to acute infection/sepsis hold bumex follow renal function closely metabolic acidosis likely due to above thrombocytopenia ?due to sepsis follow platelets acute on chronic normocytic anemia history of CLL no documentation of blood loss follow cbc mood disorder citalopram, Librium, lorazepam, hydroxyzine on hold since admission continue to hold due to sedation resume as indicated CLL hold acalabrutinib on prednisone 6 mg/d but now on stress-dose hydrocortisone - hydrocortisone weaned to 50 q12 today continue to wean DM2 seen by speech, able to start NDD1 diet with thin liquids continue SSI, follow POCs. A1C 7.9 hypothyroidism continue synthroid COPD incruse ellipta, symbicort morbid obesity diet/exercise counseling HLD statin on hold VTE ppx -Eliquis attending - dr. Barajas requires ongoing inpatient stay for management of new afib with rvr, klebsiella bacteremia, possible need for removal of francis catheter and ureteral stents, safe disposition Quality Stroke Does the patient have a stroke diagnosis?: No VTE Prior VTE?: No VTE Risk Level:: Medical - moderate - high VTE Device Contraindication: Treatment Not Indicated VTE Drug Contraindication: N/A - Med Ordered
[2023-05-22] MEDS: Metoprolol Tartrate 5 MG/5 ML VIAL IVPUSH ×3 (11:20→21:04)
[2023-05-22 11:31] LABS: Glucose, Whole Blood 293 mg/dL (60-115)
[2023-05-22] MEDS: Metoprolol Succinate ER 50 MG TAB.ER.24H PO (15:51)
--- NOTE | 2023-05-22 15:51 | PC.RT ---
Tx not given, RN providing care, pt unavailable.
[2023-05-22 16:30] LABS: Glucose, Whole Blood 243 mg/dL (60-115)
[2023-05-22 21:04] LABS: Glucose, Whole Blood 327 mg/dL (60-115)
[2023-05-22] MEDS: Apixaban 5 MG TABLET PO (21:05)
[2023-05-23] VITALS (9 sets, daily range): BP systolic 110–133; BP diastolic 52–64; PULSE 70–99; RESP 19–20; TEMP 36–36.4; O2SAT 94–100; BMI 36.3
--- NOTE | 2023-05-23 01:14 | PC.NURSE ---
At 1900 pt sustaining HR 140s in afib. Other VSS. Pt assessed, was asleep, woke pt up denies any cardiac symptoms. notified -new one time 5mg IV ordered and admin. Brought HR to 110-120s At 2044 HR back into 140s. PT remains aymptomatic at this time. notified, another 5mg IV lopressor admin with good effect. HR 90s-110s into the night.
[2023-05-23] MEDS: Levothyroxine Sodium 175 MCG TABLET PO (05:59)
[2023-05-23 07:20] LABS: Creatinine Clr Calc Pharmacy 33.5; Estimated Glomerular Filt Rate 26
[2023-05-23 07:47] LABS: Glucose, Whole Blood 175 mg/dL (60-115)
[2023-05-23] MEDS: Fluticasone/Vilanterol 200/25 BLST.W.DEV 1 PUFF INHALE (08:17)
[2023-05-23] MEDS: Albuterol/Iprat 2.5/0.5MG 3 ML AMPUL.NEB INHALE ×3 (08:17→19:54)
[2023-05-23] MEDS: Apixaban 5 MG TABLET PO (08:38)
[2023-05-23] MEDS: Insulin Lispro 100 UNIT/ML 3 ML VIAL SUBCUT ×6 (08:38→21:08)
[2023-05-23] MEDS: Heparin Sodium,Porcine Flush 50 UNITS, 0.9 % Sodium Chloride Flush 5 ML IVFLUSH (08:38)
[2023-05-23] MEDS: predniSONE 10 MG TABLET PO (08:38)
[2023-05-23] MEDS: Metoprolol Succinate ER 50 MG TAB.ER.24H PO (08:39)
[2023-05-23] MEDS: Digoxin 0.125 MG TABLET PO (08:42)
[2023-05-23] MEDS: Artificial Tears 15 ML DROPS 1 DROP EYE-BOTH ×2 (08:42→20:08)
[2023-05-23] MEDS: Nystatin Powder 15 GM BOTTLE 1 APPL TOPICAL ×3 (08:45→20:08)
--- NOTE | 2023-05-23 09:40 | P.PNIM_ITS ---
Subjective Subjective Date of Service: 05/23/23 Interval History: seen and examined this morning follow up for septic shock, downgraded from the ICU sleepy but more awake no chest pain, sob, dizziness Review of Systems Review of Systems: Yes all other systems are reviewed and are negative Constitutional Constitutional: Denies chills and Denies fever(s) Cardiovascular Cardiovascular: Denies chest pain, Denies palpitations and Denies dyspnea Respiratory Respiratory: Denies dyspnea Endocrine Endocrine: Denies palpitations Physical Exam 2 Vital Signs: Vital Signs: Last Vital Signs Temp 96.8 F 05/23/23 08:00 Pulse 74 05/23/23 08:18 Resp 20 05/23/23 08:18 BP 110/53 L 05/23/23 08:00 Pulse Ox 97 05/23/23 08:00 O2 Del Method Room Air 05/23/23 08:00 O2 Flow Rate 1 05/19/23 07:00 BMI result Body Mass Index 36.3 Appearing in no acute distress lung sounds are clear to auscultation heart regular rate rhythm, clear S1, S2 positive bowel sounds, abdomen is soft, nontender neuro patient is alert x3, no focal deficits Objective Data Active Medications Acetaminophen (Acetaminophen 325 Mg Tablet) 650 mg PO Q6H PRN PRN Reason: Pain, Mild (Pain Scale 1-3) Albuterol/Ipratropium (Albuterol/Iprat 2.5/0.5mg 3 Ml Ampul.Neb) 3 ml INHALE RQ6H WHILE AWAKE [facility] Last Admin: 05/23/23 08:17 Dose: 3 ml Documented By: REGAN Apixaban (Apixaban 5 Mg Tablet) 5 mg PO BID [facility] Last Admin: 05/23/23 08:38 Dose: 5 mg Documented By: MARY GRACE Artificial Tears (Artificial Tears 15 Ml Drops) 1 drop EYE-BOTH BID [facility] Last Admin: 05/23/23 08:42 Dose: 1 drop Documented By: MARY GRACE Heparin Sodium (Porcine) 50 (units/ Sodium Chloride 5 ml) 0 units IVFLUSH DAILY [facility] Last Admin: 05/23/23 08:38 Dose: 50 unit Documented By: MARY GRACE Dextrose (Dextrose 50 % 25 Gm/50 Ml Syringe) 25 gm IVPUSH Q15M PRN; Protocol PRN Reason: per Hypoglycemia Standing Ord. Digoxin (Digoxin 0.125 Mg Tablet) 0.125 mg PO MOWEFR [facility] Last Admin: 05/23/23 08:42 Dose: 0.125 mg Documented By: MARY GRACE Fluticasone/Vilanterol (Fluticasone/Vilanterol 200/25 Blst.W.Dev) 1 puff INHALE RDAILY [facility] Last Admin: 05/23/23 08:17 Dose: 1 puff Documented By: REGAN Glucose (Glucose Gel 15 Gm Gel..Gram.) 15 gm PO Q15M PRN; Protocol PRN Reason: per Hypoglycemia Standing Ord. Meropenem 1 gm/ Sodium (Chloride) 100 mls @ 200 mls/hr IV Q12H [facility] Last Admin: 05/23/23 08:46 Dose: 200 mls/hr Documented By: MARY GRACE Insulin Human Lispro (Insulin Lispro 100 Unit/Ml 3 Ml Vial) 0 unit SUBCUT QIDACHS [facility]; Protocol Last Admin: 05/23/23 07:52 Dose: Not Given Documented By: MARY GRACE Non-Admin Reason: No Insulin Coverage Insulin Human Lispro (Insulin Lispro 100 Unit/Ml 3 Ml Vial) 5 unit SUBCUT QIDACHS [facility] Last Admin: 05/23/23 08:38 Dose: 5 unit Documented By: MARY GRACE Levothyroxine Sodium (Levothyroxine Sodium 175 Mcg Tablet) 175 mcg PO DAILY@0600 [facility] Last Admin: 05/23/23 05:59 Dose: 175 mcg Documented By: AKIL Metoprolol Succinate (Metoprolol Succinate Er 50 Mg Tab.Er.24h) 50 mg PO DAILY [facility]; Protocol Last Admin: 05/23/23 08:39 Dose: 50 mg Documented By: MARY GRACE Nystatin (Nystatin Powder 15 Gm Bottle) 1 appl TOPICAL TID [facility]; Protocol Last Admin: 05/23/23 08:45 Dose: 1 appl Documented By: MARY GRACE Prednisone (Prednisone 10 Mg Tablet) 10 mg PO DAILY [facility] Last Admin: 05/23/23 08:38 Dose: 10 mg Documented By: MARY GRACE Labs 05/21/23 05:15 05/23/23 06:56 Labs: Laboratory Results - last 24 hr 02/18/24 02/18/24 02/18/24 11:26 15:44 20:50 Hold Purple Top Estim Creat Clear Calc Estimated GFR POC Glucose 293 H 243 H 327 H 05/23/23 05/23/23 06:56 07:26 Hold Purple Top SEE NOTE Estim Creat Clear Calc 33.5 Estimated GFR 26 POC Glucose 175 H Microbiology Microbiology Results: Microbiology 05/18/23 05:21 Blood Culture - Final Blood - Venous No growth after 5 days. Assessment and Plan (1) Gram-negative bacteremia: Status: Acute (2) Septic shock: Status: Acute (3) Atrial fibrillation: Status: Acute Plan This is a 73 year old female with history of HFpEF, CKD3, CLL, chronic hypoxic respiratory failure due to COPD, LATONYA, HTN, mood disorder, hypothyroidism, DM2, chronic steroid dependence admitted to the ICU for septic shock secondary to Klebsiella bacteremia, weaned off pressors and downgraded to the medical floor on 05/20 course now complicated by new onset afib with RVR New onset atrial flutter with RVR echo from october 2022 with preserved ef echo EF 60-65% cardiology consult>start Digoxin MWF chadsvasc score high, Eliquis 5mg BID Intermittent episodes of RVR, metoprolol 5 mg IV as needed metoprolol xl increased to 75mg NSTEMI troponin on 05/17 around 700, no repeat repeat checked due to new afib and up to 3100 already started on eliquis for afib discussed with cardiology Normal echo without wma Klebsiella bacteremia thought to be urinary source although urine culture negative b/l ureteral stents seen on abdominal CT from 05/17 -placed 11/2022 - ? need to be removed despite negative urine culture, will consult urology francis in place - also placed 11/2022 ? needs removal, will discuss with ID repeat blood culture negative increase dose of meropenem to appropriate renal dosing ID consult pending HfpEF hold bumex for now monitor fluid status closely LEO on CKD3. Creat trending down likely due to acute infection/sepsis hold bumex follow renal function closely metabolic acidosis likely due to above thrombocytopenia ?due to sepsis follow platelets acute on chronic normocytic anemia history of CLL no documentation of blood loss follow cbc mood disorder citalopram, Librium, lorazepam, hydroxyzine on hold since admission continue to hold due to sedation resume as indicated CLL hold acalabrutinib on prednisone 6 mg/d but switched to stress-dose hydrocortisone due to encephalopathy -now back to prednisone 10mg daily continue to wean DM2 seen by speech, rec NDD1 diet with thin liquids continue SSI, follow POCs. A1C 7.9 hypothyroidism continue synthroid COPD incruse ellipta, symbicort morbid obesity diet/exercise counseling HLD statin on hold VTE ppx -Mariaelena attending - dr. Barajas requires ongoing inpatient stay for management of new afib with rvr, klebsiella bacteremia, possible need for removal of francis catheter and ureteral stents, safe disposition Quality Stroke Does the patient have a stroke diagnosis?: No VTE Prior VTE?: No VTE Risk Level:: Medical - moderate - high VTE Device Contraindication: Treatment Not Indicated VTE Drug Contraindication: N/A - Med Ordered
--- NOTE | 2023-05-23 10:29 | HO.WOUND ---
Wound Consult: Follow up 73yr old?F admitted to [facility] on 05/17/23 - See progress notes and H&P for detailed history.? Wound consult follow up for Bilateral Buttock and posterior thighs and right sacrum.? Arrival to bedside patient was getting cleaned by direct care team pt was agreeable to assessment and photo documentation. ? Of note patient was incontinent urine - incontinence care provided and purewick to be placed . Direct care team will monitor and if in effective in urinary containment will discontinue. Initial photo uploaded to EMR arrival to hospital 05/18/23 with [address] treatment in place 05/23/23 Right Sacrum Etiology: ??Stage 2 Pressure Injury with thrombocytopenia -Present on Admission Wound Bed: red maroon purple nonblanchable tissue - scattered areas of partial thickness tissue loss - friction and MASD components noted - The dark purple nonblanchable tissue is not consistent with pressure it is noted on the left ischial area as well and not consistent with pressure - pt labs reviewed and is noted for thrombocytopenia Drainage / Odor: None noted Edges: ? Irregular Vannessa wound: MASD and Friction No Warmth noted - no induration or fluctuance noted Goals of Treatment: ? Moist wound healing and to protect from friction and Moisture Bilateral Buttock. Posterior Thighs and Bilateral Inner Thighs Etiology: ??MASD -IAD (Moisture Associated Skin Damage - Incontinence Associated Dermatitis) Wound Bed: scattered areas of blanchable red pink pigmentation scattered areas of partial thickness tissue loss - appears improved from photo review in chart review Drainage / Odor: None noted Edges: ? Irregular Vannessa wound: ?Linwood intact moist tissue Pain: pt did not respond to assessment Goals of Treatment: ? Moist wound healing and to protect from friction and Moisture Left Breast and Abdominal skin folds Etiology: ??MASD -Intertrigo (Moisture Associated Skin Damage) Wound Bed: Linear at base of fold -tissue loss - some areas pink some with adherent thin slough noted Drainage / Odor: None noted Edges: ? Linear Vannessa wound: ?Linwood intact moist tissue Pain: reports mild tenderness Goals of Treatment: ? Moist wound healing and to protect from friction and Moisture Right Elbow Etiology: ??Skin tear Wound Bed: skin flap in place and reapproximated - Drainage / Odor: scant serosang Edges: ? Irregular Vannessa wound: ?Linwood intact tissue Goals of Treatment: ? Moist wound healing with xeroform Recommendations: 1. Turn and Reposition every 2 hours and as needed for patient comfort.? Use pillows or wedges to support off loading positions. 2. Off Load all bony prominences with use of pillows and heel boots if needed.? Apply Preventative foams where needed. ? 3. Monitor for incontinence and moisture control, use barrier creams when needed for prevention and treatment. Purewick in place. 4. Provide adequate and supplemental nutrition.? 5. Order or Continue low air loss mattress. 6. Maintain blood glucose levels per Providers order. 7. Right Sacrum - Off Load Pressure - Cleanse with PH balance spray or wipes, pat dry. ?Apply thin layer of Triad to wound bed. Do not remove all of paste between applications as this may cause further skin damage.? Cover with foam dressing to aid in off loading and protection from friction. If incontinence remains may use Triad alone with out foam covering. 8. Bilateral Inner thighs, buttocks and posterior thighs and skin folds - Off Load Pressure - Cleanse with PH balance spray or wipes, pat dry. ?Apply thin layer of Triad to wound bed - only pat and dab no scrub and rub when soiling occurs. Reapply thin layer PRN after each episode of incontinence. 9. Right Elbow - Cleanse with normal saline, pat dry. ?Apply double layer Xeroform secure with Abd pads, gauze wrap and tape. ?Do not apply tape to patients skin.? Avoid Adhesive application to skin - when necessary, apply skin prep prior.? Re-consult wound care Nurse for wound deterioration or wound changes.
--- NOTE | 2023-05-23 12:20 | MHC.CLN ---
F/U DIET=DIABETIC 1800 KCALS, PUREE CONSISTENCY. ENSURE MAX BID (300 KCALS, 60 G PROTEIN) TO PROMOTE WOUND HEALING. ENCOURAGE PO INTAKE ABLE.
[2023-05-23 12:29] LABS: Glucose, Whole Blood 155 mg/dL (60-115)
--- NOTE | 2023-05-23 13:05 | MHC.SL.DTX ---
Addendum entered and electronically signed by KAILYN Alfonso 05/25/23 11:13: Disregard Dietary Recommendations: Grnd/Mech Altered (NDD2) under the heading Solid Food Consistency. Please refer to original document under Patient Care for further details. Original Note: Dysphagia Diet modifications: Last documented Solid diet consistencies: Pureed (NDD1) Last documented Liquid consistency: Thin Changes made to current diet?: Yes Liquid Consistency and Strategies: Liquid Intake Recommendation: Thin Compensatory Strategies for Safe Swallow: Small Sips Compensatory Strategies for Safe Swallow(b): Sitting Upright (90 deg) Solid Food Consistency: Dietary Recommendations: Grnd/Mech Altered (NDD2) Additional Modifications to Solids: Patient will initially need 1-1 feed due to her generalized weakness. Do not attempt if patient is overly lethargic and not engaged in meal. Patient tolerates drinking by straw but encourage small sips. Discontinue with clinical signs of aspiration, including coughing after swallow, increased upper airway noise, drop in O2 saturation. Oral Medication Intake: Whole with Puree Strategies and Precautions to be Taken for Safe Swallow: Sitting Upright (90 deg) Supervision While Eating and/Drinking: Total Assistance (1:1) Foods to Avoid: Sticky or congealed purees. Add sauces and gravies and blend well. Swallowing Recommended Treatments: Compens. Strategy Educat. Level of Impact on: Daily activities: Mild Interpersonal interactions: Education: None Employment: None Community: None Prognosis for Improvement: Good Recommendation for Speech: Inpatient Speech Therapy Comment: Patient presents with a mild to moderate oral phase dysphagia, characterized by decreased strength, ROM of oral structures and edentulous state. Patient is medically fragile, and currently presents with lethargy and generalized weakness. Recommend start diet of PUREE (NDD1) with THIN liquids, pills crushed in puree. Patient will require one to one feeding, initially, due to her generalized weakness. Patient will likely be able to progress on diet textures as overall strength returns. ELEVATOR CONSTRUCTOR will continue to follow, re-assess and advance diet as warranted. RADHA VASQUEZ notified of recommendations by secure dominic, RN in person. Treatment: Pt resting in bed. She is responding appropriately to questions. She declines offerings of Puree Solids from her Lunch tray. She is agreeable to trial liquids. She is provided straw sips of her nutritional supplement drink. She takes consecutive sips with no overt s/s of aspiration, not change to voice or breathing pattern. Chief Accountant Clinican/Clinical Fellow: No Supervisory Statement: I have reviewed and agree with the student/clinical fellow's documentation: N/A Speech Language Pathologist: Julio Arrington M.A., [facility]-[employer]
--- NOTE | 2023-05-23 13:28 | PM.UROCN ---
History of Present Illness Consult details Consult date: 05/23/23 Narrative: 73-year-old female with a past medical history of CHF, HTN, COPD on chronic 2L NC, CKD, LATONYA, anemia, Chavez device to right anterior chest, presented to ED on 05/17/23 via EMS from [facility] with increased lethargy/unresponsiveness and abnormal outpatient labs. She was admitted to Critical care. CTAP 05/17/23 noted bilateral ureteral stents, no urolithiasis noted. She has been treated with IV Abx for UTI. She sustained LEO on CKD. She is currently on the floor. She has been evaluated by Cardiology for new onset atrial fibrillation and started on eliquis. I have discussed with the patient and her niece, Patricia recommendations to remove bilateral ureteral stents and they agree to the plan. Review of Systems Review of Systems: 10 point ROS negative other than stated in HPI [facility] Past Medical History Medical History Congestive heart failure Essential hypertension Acute on chronic heart failure with preserved ejection fraction Acute and chronic respiratory failure with hypoxia (HFpEF) heart failure with preserved ejection fraction Morbid obesity COPD exacerbation CKD (chronic kidney disease) stage 3, GFR 30-59 ml/min LATONYA (obstructive sleep apnea) Anemia Hypoventilation associated with obesity COVID Congestive heart failure Acute respiratory failure with hypoxia Rash Heart block AV second degree Acute UTI Acute kidney injury superimposed on CKD Bradycardia Pleural effusion Acute respiratory failure Pneumonia due to COVID-19 virus Chronic lymphocytic leukemia (CLL), B-cell Dyspnea Congestive heart failure COVID-19 Hypoxia Influenza A CLL (chronic lymphocytic leukemia) Suspected deep tissue injury Klebsiella pneumonia Infection with ESBL Klebsiella oxytoca Lymphadenopathy, mediastinal Pleural effusion Congestive heart failure COVID Lower extremity edema Migraine HTN (hypertension) Pseudotumor cerebri PVD (peripheral vascular disease) Obesity CKD (chronic kidney disease) Diabetes mellitus with insulin therapy Hypothyroidism HLD (hyperlipidemia) Family History Family History Mother Heart attack, Onset Age: 92 Father Heart attack, Onset Age: 66 Other Diabetes Surgical History Surgical History S/P appendectomy H/O cataract extraction H/O hysterectomy for benign disease Hx of cholecystectomy Social History Social History Household Members: Other Household Members Other:: Assisted living facility Housing: Assisted Housing Other:: [facility] Do you presently have visiting nurse or other home services: Yes Alcohol intake: never Comment: bedrest Patient Tobacco Use Status: Former Tobacco user Second Hand Smoke Exposure: No Advance Directives Date on File: 09/26/20 service: No Current occupational status: disabled Meds Allergies Allergy/AdvReac Type Severity Reaction Status Date / Time oxycodone [From Percocet] Allergy Intermediate Rash Verified 05/17/23 09:33 lisinopril Allergy Unknown Unknown Verified 05/17/23 09:33 Active Medications: Current Medications Acetaminophen (Acetaminophen 325 Mg Tablet) 650 mg PO Q6H PRN PRN Reason: Pain, Mild (Pain Scale 1-3) Albuterol/Ipratropium (Albuterol/Iprat 2.5/0.5mg 3 Ml Ampul.Neb) 3 ml INHALE RQ6H WHILE AWAKE [facility] Last Admin: 05/23/23 08:17 Dose: 3 ml Apixaban (Apixaban 5 Mg Tablet) 5 mg PO BID [facility] Last Admin: 05/23/23 08:38 Dose: 5 mg Artificial Tears (Artificial Tears 15 Ml Drops) 1 drop EYE-BOTH BID [facility] Last Admin: 05/23/23 08:42 Dose: 1 drop Heparin Sodium (Porcine) 50 (units/ Sodium Chloride 5 ml) 0 units IVFLUSH DAILY [facility] Last Admin: 05/23/23 08:38 Dose: 50 unit Dextrose (Dextrose 50 % 25 Gm/50 Ml Syringe) 25 gm IVPUSH Q15M PRN; Protocol PRN Reason: per Hypoglycemia Standing Ord. Digoxin (Digoxin 0.125 Mg Tablet) 0.125 mg PO MOWEFR [facility] Last Admin: 05/23/23 08:42 Dose: 0.125 mg Fluticasone/Vilanterol (Fluticasone/Vilanterol 200/25 Blst.W.Dev) 1 puff INHALE RDAILY [facility] Last Admin: 05/23/23 08:17 Dose: 1 puff Glucose (Glucose Gel 15 Gm Gel..Gram.) 15 gm PO Q15M PRN; Protocol PRN Reason: per Hypoglycemia Standing Ord. Meropenem 1 gm/ Sodium (Chloride) 100 mls @ 200 mls/hr IV Q12H [facility] Last Infusion: 05/23/23 09:20 Dose: Infused Insulin Human Lispro (Insulin Lispro 100 Unit/Ml 3 Ml Vial) 0 unit SUBCUT QIDACHS [facility]; Protocol Last Admin: 05/23/23 12:11 Dose: Not Given Insulin Human Lispro (Insulin Lispro 100 Unit/Ml 3 Ml Vial) 5 unit SUBCUT QIDACHS [facility] Last Admin: 05/23/23 12:10 Dose: 5 unit Levothyroxine Sodium (Levothyroxine Sodium 175 Mcg Tablet) 175 mcg PO DAILY@0600 [facility] Last Admin: 05/23/23 05:59 Dose: 175 mcg Metoprolol Succinate (Metoprolol Succinate Er 50 Mg Tab.Er.24h) 50 mg PO DAILY [facility]; Protocol Last Admin: 05/23/23 08:39 Dose: 50 mg Nystatin (Nystatin Powder 15 Gm Bottle) 1 appl TOPICAL TID [facility]; Protocol Last Admin: 05/23/23 08:45 Dose: 1 appl Prednisone (Prednisone 10 Mg Tablet) 10 mg PO DAILY [facility] Last Admin: 05/23/23 08:38 Dose: 10 mg Home Medications Medication Instructions Recorded Confirmed Last Taken Type chlordiazepoxide HCl 10 mg capsule 10 mg PO BEDTIME 10/08/21 05/17/23 Unknown History citalopram 20 mg tablet 20 mg PO DAILY 10/08/21 05/17/23 Unknown History insulin lispro protamine-lispro 0 unit subcut QIDACHS 10/08/21 05/17/23 Unknown History 100 unit/mL (75-25) subcutaneous pen levothyroxine 175 mcg tablet 175 mcg PO DAILY@0600 10/08/21 05/17/23 Unknown History simvastatin 20 mg tablet 20 mg PO BEDTIME 10/08/21 05/17/23 Unknown History sitagliptin phosphate 100 mg 100 mg PO DAILY 10/08/21 05/17/23 Unknown History tablet (Januvia) latanoprost 0.005 % eye drops 1 drp ophthalmic (eye) BEDTIME 11/20/21 05/17/23 Unknown History albuterol sulfate 0.63 mg/3 mL 0.63 mg inhalation Q2H PRN 02/16/22 05/17/23 Unknown History solution for nebulization Shortness Of Breath Or Wheezing brinzolamide 1 %-brimonidine 0.2 % 1 drp ophthalmic-Right BID 02/16/22 05/17/23 Unknown History eye drops,suspension (Simbrinza) gdwlmuxnus-ugaivgrdofrqq-gsnfkpgy 1 tab PO Q6H PRN Headache 02/16/22 05/17/23 Unknown History 50 mg-325 mg-40 mg tablet coenzyme Q10 100 mg capsule 150 mg PO DAILY 02/16/22 05/17/23 Unknown History (CoQ-10) melatonin 5 mg tablet 5 mg PO BEDTIME 02/16/22 05/17/23 Unknown History prednisolone acetate 1 % eye 1 drp ophthalmic-Right DAILY 02/16/22 05/17/23 Unknown History drops,suspension timolol maleate 0.5 % eye drops 1 drp ophthalmic-Right BID 02/16/22 05/17/23 Unknown History carboxymethylcellulose sodium 1 % 1 drp ophthalmic (eye) BID 03/15/22 05/17/23 Unknown History eye drops (Artificial Tears (carboxymethylcellulose)) budesonide-formoterol HFA 160 2 puff inhalation BID 04/27/22 05/17/23 Unknown History mcg-4.5 mcg/actuation aerosol inhaler (Symbicort) umeclidinium 62.5 mcg/actuation 1 inh inhalation DAILY 04/27/22 05/17/23 Unknown History blister powder for inhalation (Incruse Ellipta) guaifenesin 600 mg tablet, 600 mg PO BID cough 06/08/22 05/17/23 Unknown History extended release 12 hr sodium phosphates 19 gram-7 118 ml DE DAILY PRN Constipation 06/08/22 05/17/23 Unknown History gram/118 mL enema (Fleet Enema) levalbuterol HCl 1.25 mg/3 mL 1.25 mg inhalation QID 07/30/22 05/17/23 Unknown History solution for nebulization biotin 5 mg tablet 5 mg PO DAILY 08/11/22 05/17/23 Unknown History bisacodyl 10 mg rectal suppository 10 mg DE DAILY PRN Constipation 08/11/22 05/17/23 Unknown History hydroxychloroquine 200 mg tablet 200 mg PO BID 08/11/22 05/17/23 Unknown History hydroxyzine HCl 25 mg tablet 25 mg PO DAILY 08/11/22 05/17/23 Unknown History lorazepam 0.5 mg tablet 0.5 mg PO BID Anxiety 08/11/22 05/17/23 Unknown History magnesium 200 mg tablet 200 mg PO DAILY 08/11/22 05/17/23 Unknown History riboflavin (vitamin B2) 400 mg 400 mg PO DAILY 08/11/22 05/17/23 Unknown History tablet prednisone 1 mg tablet 6 mg PO DAILY 10/27/22 05/17/23 Unknown History Lactobacillus acidophilus 1 tab PO BID 02/14/23 05/17/23 Unknown History (Acidophilus chewable tablet) bumetanide 1 mg tablet 2 mg PO BID@0800,1700 04/26/23 05/17/23 Unknown History diphenhydramine-zinc acetate 2 1 appl topical QSHIFT 04/26/23 05/17/23 Unknown History %-0.1 % topical cream loperamide 2 mg capsule 2 mg PO Q4H PRN Loose Stool 04/26/23 05/17/23 Unknown History methenamine hippurate 1 gram tablet 1 g PO BID 04/26/23 05/17/23 Unknown History nystatin 100,000 unit/gram topical 1 appl topical BID 04/26/23 05/17/23 Unknown History powder potassium chloride 20 mEq 20 meq PO BEDTIME 04/26/23 05/17/23 Unknown History tablet,extended release Physical Exam Vital Signs: Vital Signs: Last Vital Signs Temp 97.0 F 05/23/23 11:19 Pulse 75 05/23/23 11:19 Resp 20 05/23/23 11:19 BP 129/59 L 05/23/23 11:19 Pulse Ox 99 05/23/23 11:19 O2 Del Method Room Air 05/23/23 11:19 O2 Flow Rate 1 05/19/23 07:00 BMI result Body Mass Index 36.3 Const: Other: chronically ill appearing morbidly obese female lying in bed. appears comfortable, awake, able to answer basic questions. Nutritional Appearance: obese Orientation/consciousness: oriented to person and oriented to place HEENT: Head: Yes normal to inspection Neck: Neck: Yes normal visual inspection Resp: Effort & Inspection: normal respiratory effort, able to speak in complete sentences and no respiratory distress Cardio: Jugular venous distension: no JVD GI: Inspection: No distended Palpation (GI): Soft to palpation and nontender Neuro: General: oriented to person and oriented to place Results Labs 05/21/23 05:15 05/23/23 06:56 Labs: Abnormal lab results 05/22/23 05/22/23 05/23/23 Range/Units 15:44 20:50 06:56 Creatinine 1.89 H (0.5-1.4) mg/dL POC Glucose 243 H 327 H (60-115) mg/dL 05/23/23 05/23/23 Range/Units 07:26 11:23 Creatinine (0.5-1.4) mg/dL POC Glucose 175 H 155 H (60-115) mg/dL BMP 05/23/23 06:56 Creatinine 1.89 H Urine 05/17/23 Range/Units 10:40 Urine Color Yellow Urine Appearance Turbid Urine pH 7.0 (5.0-9.0) Ur Specific [place] 1.015 (1.005-1.025) Urine Protein 100 (2+) H (Neg-Trace) mg/dL Urine Glucose (UA) 100 H (Negative) mg/dL Imaging Additional studies: Date of Service: 05/17/23 Examination: CT chest, abdomen pelvis without IV contrast. Clinical indication, hypoglycemia. COMPARISON: Chest x-ray 05/17/2023 TECHNIQUE: 5 mm thin axial and reformatted 3 mm thin sagittal and coronal images of chest, abdomen and pelvis were obtained without contrast. This CT examination was performed using dose optimization technique as appropriate, variously including the following: Automated exposure control Adjustment of MA and/or KV according to patient size(this includes techniques or standardized protocols for targeted exams where dose is matched to indication/reason for exam; extremities or head. Use of iterative reconstruction techniques. FINDINGS: CHEST: LUNGS: The lungs are well-expanded and clear of acute pneumonic process. PLEURA: There is bilateral small pleural effusions. Mediastinum: Thyroid lobes are small, symmetrical and normal. Central trachea and the bronchial airways are widely patent. Heart size enlarged without pericardial effusion. There is dense mitral valve calcification moderate coronary artery calcifications are present. No pericardial effusion seen. There are numerous prominent mediastinal lymph nodes. The largest lymph node measuring 1.4 cm in the right pretracheal space. AXILLA: There is no abnormal axillary lymph nodes. The chest wall is unremarkable. OSSEOUS STRUCTURES: No aggressive lytic or sclerotic process seen. There is mild ventral spondylosis mid and lower dorsal spine. Abdomen and pelvis: Liver, ducts and gallbladder: The liver is normal size, and contour and density. No focal lesion or intrahepatic ductal dilatation seen. Spleen: Unremarkable. Pancreas: Unremarkable. Adrenal glands: Unremarkable. Kidneys: Both kidneys are normal size for patient's age. There are bilateral internal ureteral stents. No radiopaque calculi seen in the kidneys or along the course of the ureter. There is however mild left hydroureter nephrosis in the proximal segment. The bladder is unremarkable. Lymphovascular structures: Abdominal aorta is normal caliber with mild atherosclerotic calcification. No retroperitoneal lymph nodes. GI tract: There is scattered gas and minimal stool seen throughout the colon without distention. The small bowel loops are normal caliber. Appendix is not visualized the stomach is nondistended. Abdominal wall: Unremarkable. Pelvis: Uterus is not visualized likely removed or atrophied. There are scattered phleboliths in the pelvis. There is scattered stool in the rectum and sigmoid colon without distention. Osseous structures: No aggressive lytic or sclerotic process seen. There is mild ventral spondylosis mid and lower dorsal spine. IMPRESSION: 1. Bilateral small pleural effusions. 2. Cardiomegaly with dense mitral valve calcification. 3. There are numerous prominent mediastinal lymph nodes with the largest lymph node measuring 1.4 cm in the right pretracheal space. 4. Bilateral internal ureteral stents with mild left hydroureteronephrosis. 5. Mild constipation without obstruction. 6. Mild ventral spondylosis mid and lower dorsal spine. Assessment and Plan (1) Septic shock: Status: Acute (2) Morbid obesity: Status: Acute (3) Acute worsening of stage 3 chronic kidney disease: Status: Acute (4) UTI (urinary tract infection): Status: Acute (5) Ureteral stent retained: Status: Acute Plan Cystoscopy, remove bilateral ureteral stents, possible retrograde, for Tuesday05/24/23 NPO past MN Procedures Date of Service Date of Service: 05/23/23
--- NOTE | 2023-05-23 14:21 | PM.PNCARD ---
Subjective Subjective Date of Service: 05/23/23 Principal diagnosis: Atrial flutter Interval history: Patient with rate control at this point time and current medical therapy. No other cardiac complaints at this point time. Review of Systems Review of Systems Yes all other systems are reviewed and are negative Constitutional: Reports as per HPI and Reports no additional constitutional complaints Eyes: Reports as per HPI and Denies no additional eye complaints Denies system reviewed and no additional complaints, except as documented and Reports as per HPI Cardiovascular: Reports as per HPI, Reports no additional cardiovascular complaints, Denies acrocyanosis, Denies cool extremities, Denies chest pain, Denies leg edema, Denies lightheadedness, Denies palpitations and Reports dyspnea Respiratory: Reports as per HPI, Denies no additional respiratory complaints and Reports dyspnea Gastrointestinal: Reports as per HPI and Denies no additional gastrointestinal complaints Genitourinary: Reports as per HPI Musculoskeletal: Reports no additional musculoskeletal complaints and Reports as per HPI Skin/Breast: Reports system reviewed and no additional complaints, except as docu Reports system reviewed and no additional complaints, except as documented and Reports as per HPI Psychiatric: Reports no additional psychiatric complaints and Reports as per HPI Endocrine: Reports no additional endocrine complaints, Reports as per HPI and Denies palpitations Hematologic/Lymphatic: Reports no additional hematologic/lymphatic complaints and Reports as per HPI Allergic/Immunologic: Reports no additional allergic/immunologic complaints and Reports as per HPI Physical Exam Vital Signs: Last Vital Signs Temp 97.0 F 05/23/23 11:19 Pulse 75 05/23/23 11:19 Resp 20 05/23/23 11:19 BP 129/59 L 05/23/23 11:19 Pulse Ox 99 05/23/23 11:19 O2 Del Method Room Air 05/23/23 11:19 O2 Flow Rate 1 05/19/23 07:00 BMI result Body Mass Index 36.3 GENERAL APPEARANCE: Morbidly obese, on supplemental oxygen. NECK: no carotid bruit, mild jugular venous distention. SKIN: no suspicious lesions, warm and dry. HEART: no murmurs, regular rate and rhythm. LUNGS: clear to auscultation bilaterally. ABDOMEN: soft, nontender. EXTREMITIES: no edema. PERIPHERAL PULSES: equal. Objective Labs and Meds 05/21/23 05:15 05/23/23 06:56 Lab results: Laboratory Results - last 24 hr 05/22/23 05/22/23 05/23/23 15:44 20:50 06:56 Hold Purple Top SEE NOTE Creatinine 1.89 H Estim Creat Clear Calc 33.5 Estimated GFR 26 POC Glucose 243 H 327 H 05/23/23 05/23/23 07:26 11:23 Hold Purple Top Creatinine Estim Creat Clear Calc Estimated GFR POC Glucose 175 H 155 H Progress Note: A&P Assessment and plan (1) Atrial flutter: Status: Acute Assessment and Plan: Atrial flutter currently rate controlled. She is status post severe infection with septic shock secondary to Klebsiella bacteremia. She is currently on antibiotic treatment. Continue current rate control with metoprolol. As her creatinine improves consider switching her to apixaban 5 mg b.i.d.. Continue supportive treatment. Clinically not in heart failure. Will sign of the case at this point time. Follow-up as outpatient Time Spent With Patient Time: Total time managing care of this patient today ____ minutes. Progress Note: Quality Stroke Does the patient have a stroke diagnosis?: No Procedures Date of Service Date of Service: 05/23/23
[2023-05-23 16:24] LABS: Glucose, Whole Blood 245 mg/dL (60-115)
[2023-05-23 20:49] LABS: Glucose, Whole Blood 312 mg/dL (60-115)
[2023-05-24] VITALS (18 sets, daily range): BP systolic 111–160; BP diastolic 47–78; PULSE 62–100; RESP 14–20; TEMP 35.7–37.3; O2SAT 96–100; BMI 38.2
[2023-05-24] MEDS: Fluticasone/Vilanterol 200/25 BLST.W.DEV 1 PUFF INHALE (07:40)
[2023-05-24] MEDS: Albuterol/Iprat 2.5/0.5MG 3 ML AMPUL.NEB INHALE (07:40)
[2023-05-24 07:49] LABS: Glucose, Whole Blood 240 mg/dL (60-115)
--- NOTE | 2023-05-24 08:32 | MHC.CM.PN ---
Addendum entered by Vaishnavi Knight RN 05/24/23 10:29: PER HOSPITALIST PT WILL REMAIN OVERNIGHT AND DC BACK TO SNF TOMORROW 05/25, CM WILL CONT TO FOLLOW DC NEEDS. Original Note: ANTIC PT WILL RETURN TO [facility] FOR S TRANSPORT ONCE BILAT UTERAL STENTS REMOVED, SNF UPDATED.
--- NOTE | 2023-05-24 09:36 | MHC.SPEECHCO ---
Pt NPO for procedure today. Previous recommendations for Puree Solids (NDD1) and Thin Liquids when cleared to resume. [facility] will continue to follow.
--- NOTE | 2023-05-24 09:41 | P.DS_ITS ---
DS: Providers Provider Date of Service: 05/24/23 Date of admission: 05/17/23 11:28 Primary care physician: Tam Corea MD Consults: 05/17/23 16:06 Consult to Wound Care Routine Reason for consultation: Skin Integrity Concerns 05/20/23 10:40 Consult to Infectious Diseases Routine Consulting Provider: [facility] [place] Infectious Disease Reason for consultation: ESBL klebsiella bacteremia Has provider been notified: No 05/20/23 13:01 Consult to Cardiology Routine Consulting Provider: [facility] [place] Cardiovascular Services Reason for consultation: new afib rvr Has provider been notified: No 05/20/23 13:42 Consult to Urology Routine Consulting Provider: Shahid Quinones Reason for consultation: septic shock. growing klebesiella. has b/l ureteral stents ?need removal Has provider been notified: No DS: Diagnosis Discharge Diagnosis (1) Atrial flutter: Status: Acute DS: Summary Hospital Course Hospital Course: History and physical as per admitting provider. 73-year-old lady with underlying history of CLL, obesity, obstructive sleep apnea, diastolic dysfunction, COPD on supplemental O2 admitted on 05/17/2023 with septic shock likely with urinary source with poor response to initial IV fluid resuscitation requiring pressor support. Patient has been started on empiric antibiotics and admitted to intensive care unit. CT of abdomen/pelvis/chest are pending. 73-year-old woman initially treated for septic shock requiring pressor support. Likely source urinary but found to have Klebsiella pneumoniae bacteremia. She had altered mental status with hypotension. She was treated with empiric a ntibiotic treatment and mental status significantly improved. She developed NSTEMI with troponin peaking around 700, already started on Eliquis for new onset atrial fibrillation, normal echocardiogram without wall motion abnormalities. Discussed with Cardiology no further treatment. She also developed new onset atrial flutter with rapid ventricular response. She was treated with IV digoxin, IV metoprolol. Started on metoprolol XL with good effect. Digoxin Tuesday and Tuesday. She should continue Eliquis 5 mg b.i.d. for the Klebsiella bacteremia she will be on Heart failure preserved ejection fraction. May continue on Bumex LEO on CKD stage 3. Likely secondary to sepsis, Bumex had been on hold creatinine now at baseline. May resume Bumex. Metabolic acidosis secondary to sepsis. Resolved Thrombocytopenia. Likely secondary to sepsis Acute on chronic normocytic anemia. With history of CLL, no obvious bleeding or blood loss, CBC stable Mental health. Continue escitalopram, Librium, lorazepam, hydroxyzine Diabetes mellitus type 2 A1c 7.9. Continue medications. Morbid obesity. BMI 38.2. Discussed importance of weight management as this may be contributing to worsening of other comorbidities Hyperlipidemia. Continue statin Physical Exam Vital Signs: Vital Signs: Last Vital Signs Temp 98.0 F 05/24/23 07:54 Pulse 73 05/24/23 07:54 Resp 20 05/24/23 07:54 BP 160/68 H 05/24/23 07:54 Pulse Ox 99 05/24/23 07:54 O2 Del Method Room Air 05/24/23 07:54 O2 Flow Rate 1 05/19/23 07:00 BMI result Body Mass Index 38.2 DS: Data Data Completed and Pending Completed studies during hospitalization [Text1]: Procedures Assistance with Respiratory Ventilation, Less than 24 Consecutive Hours, Continuous Positive Airway Pressure (02/14/23) Dilation of Bilateral Ureters with Intraluminal Device, Via Natural or Artificial Opening Endoscopic (10/28/22) Drainage of Left Main Bronchus, Via Natural or Artificial Opening Endoscopic, Diagnostic (11/19/21) Drainage of Left Pleural Cavity, Percutaneous Approach (11/19/21) Drainage of Right Main Bronchus, Via Natural or Artificial Opening Endoscopic, Diagnostic (11/19/21) Drainage of Right Pleural Cavity, Percutaneous Approach (11/19/21) Excision of Right Inguinal Lymphatic, Percutaneous Approach, Diagnostic (11/19/21) Excision of Thorax Lymphatic, Percutaneous Endoscopic Approach, Diagnostic (11/19/21) Fluoroscopy of Kidneys, Ureters and Bladder (10/28/22) Insertion of Endotracheal Airway into Trachea, Via Natural or Artificial Opening (11/19/21) Insertion of Infusion Device into Superior Vena Cava, Percutaneous Approach (11/26/22) Insertion of Tunneled Vascular Access Device into Chest Subcutaneous Tissue and Fascia, Percutaneous Approach (11/26/22) Inspection of Tracheobronchial Tree, Via Natural or Artificial Opening Endoscopic (11/19/21) Introduction of Remdesivir Anti-infective into Peripheral Vein, Percutaneous Approach, [employer] (12/31/22) Introduction of Vasopressor into Central Vein, Percutaneous Approach (10/28/22) Performance of Urinary Filtration, Intermittent, Less than 6 Hours Per Day (10/28/22) Respiratory Ventilation, Greater than 96 Consecutive Hours (11/19/21) Transfusion of Nonautologous Red Blood Cells into Peripheral Vein, Percutaneous Approach (10/28/22) Ultrasonography of Superior Vena Cava, Guidance (11/26/22) Labs on day of discharge: Laboratory Results - last 24 hr 05/23/23 05/23/23 05/23/23 11:23 16:01 20:46 POC Glucose 155 H 245 H 312 H 05/24/23 07:44 POC Glucose 240 H Discharge Plan Discharge Anticipated Discharge Date/Time: 05/24/23 09:33 Patient Disposition: Xfer Inpatient Rehab Fac Discharge Diagnosis: Klebsiella pneumoniae bacteremia New onset atrial flutter with rapid ventricular response NSTEMI LEO on CKD stage 3 Metabolic acidosis Thrombocytopenia Acute on chronic normocytic anemia Referrals: Tam Corea MD [Primary Care Provider] - 1 Week Discharge Medications: New meropenem 1 gram Recon Soln 1 g IV Q12H Qty: 10 0RF metoprolol succinate 50 mg Tablet Extended Release 24 Hr 50 mg PO DAILY Qty: 30 0RF Protocol: Hold for SBP/HR < HOLD for SBP < : 90 HOLD for HR < : 60 digoxin 125 mcg (0.125 mg) Tablet 0.125 mg PO MOWEFR Qty: 30 0RF Eliquis 5 mg Tablet 5 mg PO BID Qty: 60 0RF Continued levothyroxine 175 mcg tablet 175 mcg PO DAILY@0600 citalopram 20 mg tablet 20 mg PO DAILY simvastatin 20 mg tablet 20 mg PO BEDTIME chlordiazepoxide HCl 10 mg capsule 10 mg PO BEDTIME insulin lispro protamin-lispro 100 unit/mL (75-25) insulin pen 0 unit subcut QIDACHS Protocol: Insulin Correction Scale Less than or equal to 110 ---- Give (units): 0 111 to 150 Give (units): 0 151 to 200 Give (units): 2 201 to 250 Give (units): 4 251 to 300 Give (units): 6 301 to 350 Give (units): 8 Greater than 350 Give (units): 10 Call MD if Blood Glucose > : 350 Januvia 100 mg tablet 100 mg PO DAILY Fleet Enema 19-7 gram/118 mL Enema 118 ml HI DAILY PRN (Reason: Constipation) guaifenesin 600 mg Tablet Extended Release 12hr 600 mg PO BID lorazepam 0.5 mg tablet 0.5 mg PO BID bisacodyl 10 mg Suppository 10 mg HI DAILY PRN (Reason: Constipation) hydroxyzine HCl 25 mg tablet 25 mg PO DAILY hydroxychloroquine 200 mg tablet 200 mg PO BID magnesium 200 mg Tablet 200 mg PO DAILY biotin 5 mg Tablet 5 mg PO DAILY riboflavin (vitamin B2) 400 mg Tablet 400 mg PO DAILY Incruse Ellipta 62.5 mcg/actuation Blister With Device 1 inh INHALATION DAILY budesonide-formoterol [Symbicort] 160-4.5 mcg/actuation Hfa Aerosol Inhaler 2 puff INHALATION BID latanoprost 0.005 % drops 1 drp ophthalmic (eye) BEDTIME Rx Instructions: 1 drop into both eyes albuterol sulfate 0.63 mg/3 mL Solution For Nebulization 0.63 mg INHALATION Q2H PRN (Reason: Shortness Of Breath Or Wheezing) gmpknnwoar-ctlukxphdagnb-latn 50-325-40 mg tablet 1 tab PO Q6H PRN (Reason: Headache) prednisolone acetate 1 % drops,suspension 1 drp ophthalmic-Right DAILY timolol maleate 0.5 % drops 1 drp ophthalmic-Right BID coenzyme Q10 [CoQ-10] 100 mg Capsule 150 mg PO DAILY melatonin 5 mg Tablet 5 mg PO BEDTIME Simbrinza 1-0.2 % drops,suspension 1 drp ophthalmic-Right BID Artificial Tears (cmc) 1 % Drops 1 drp OPHTHALMIC (EYE) BID Acidophilus Tablet,Chewable 1 tab PO BID Jardiance 10 mg Tablet 10 mg PO DAILY Qty: 30 0RF Calquence (acalabrutinib mal) 100 mg tablet 100 mg PO BID Qty: 60 6RF loperamide 2 mg Capsule 2 mg PO Q4H PRN (Reason: Loose Stool) Rx Instructions: administer after each loose stool until symptoms controlled; do not exceed 8 mg per 24 hrs diphenhydramine-zinc acetate 2-0.1 % Cream 1 appl TOPICAL QSHIFT methenamine hippurate 1 gram Tablet 1 g PO BID nystatin 100,000 unit/gram Powder 1 appl TOPICAL BID potassium chloride 20 mEq Tablet Extended Release 20 meq PO BEDTIME bumetanide 1 mg tablet 2 mg PO BID@0800,1700 Protocol: Hold for SBP< HOLD for SBP < : 90 levalbuterol HCl 1.25 mg/3 mL Solution For Nebulization 1.25 mg INHALATION QID potassium chloride 20 mEq Tablet,Er Particles/Crystals 40 meq PO DAILY Qty: 30 0RF prednisone 1 mg Tablet 6 mg PO DAILY Diet: Advance to usual diet Activity on Discharge: As tolerated Stand Alone Forms: Patient Portal Discharge page Health Concerns: Klebsiella pneumoniae bacteremia New onset atrial flutter with rapid ventricular response NSTEMI LEO on CKD stage 3 Metabolic acidosis Thrombocytopenia Acute on chronic normocytic anemia Plan of Treatment: Follow-up with primary care provider as needed Take all medications as prescribed Assessment: See discharge summary
--- NOTE | 2023-05-24 09:49 | HO.PM.IMPN ---
Subjective Subjective Date of Service: 05/24/23 Interval History: seen and examined this morning follow up for septic shock, downgraded from the ICU aware and alert no chest pain, sob, dizziness Review of Systems Review of Systems: Yes all other systems are reviewed and are negative Constitutional Constitutional: Denies chills and Denies fever(s) Cardiovascular Cardiovascular: Denies chest pain, Denies palpitations and Denies dyspnea Respiratory Respiratory: Denies dyspnea Endocrine Endocrine: Denies palpitations Physical Exam Vital Signs: Vital Signs: Last Vital Signs Temp 98.0 F 05/24/23 07:54 Pulse 73 05/24/23 07:54 Resp 20 05/24/23 07:54 BP 160/68 H 05/24/23 07:54 Pulse Ox 99 05/24/23 07:54 O2 Del Method Room Air 05/24/23 07:54 O2 Flow Rate 1 05/19/23 07:00 BMI result Body Mass Index 38.2 Appearing in no acute distress, bedbound lung sounds are clear to auscultation heart regular rate rhythm, clear S1, S2 positive bowel sounds, abdomen is soft, nontender neuro patient is alert x3, no focal deficits Objective Data Active Medications Acetaminophen (Acetaminophen 325 Mg Tablet) 650 mg PO Q6H PRN PRN Reason: Pain, Mild (Pain Scale 1-3) Albuterol/Ipratropium (Albuterol/Iprat 2.5/0.5mg 3 Ml Ampul.Neb) 3 ml INHALE RQ6H WHILE AWAKE [facility] Last Admin: 05/24/23 07:40 Dose: 3 ml Documented By: REANNA Apixaban (Apixaban 5 Mg Tablet) 5 mg PO BID [facility] Last Admin: 05/23/23 08:38 Dose: 5 mg Documented By: MARY GRACE Artificial Tears (Artificial Tears 15 Ml Drops) 1 drop EYE-BOTH BID [facility] Last Admin: 05/23/23 20:08 Dose: 1 drop Documented By: ROBINSON Heparin Sodium (Porcine) 50 (units/ Sodium Chloride 5 ml) 0 units IVFLUSH DAILY [facility] Last Admin: 05/23/23 08:38 Dose: 50 unit Documented By: MARY GRACE Dextrose (Dextrose 50 % 25 Gm/50 Ml Syringe) 25 gm IVPUSH Q15M PRN; Protocol PRN Reason: per Hypoglycemia Standing Ord. Digoxin (Digoxin 0.125 Mg Tablet) 0.125 mg PO MOWEFR [facility] Last Admin: 05/23/23 08:42 Dose: 0.125 mg Documented By: MARY GRACE Fluticasone/Vilanterol (Fluticasone/Vilanterol 200/25 Blst.W.Dev) 1 puff INHALE RDAILY [facility] Last Admin: 05/24/23 07:40 Dose: 1 puff Documented By: REANNA Glucose (Glucose Gel 15 Gm Gel..Gram.) 15 gm PO Q15M PRN; Protocol PRN Reason: per Hypoglycemia Standing Ord. Meropenem 1 gm/ Sodium (Chloride) 100 mls @ 200 mls/hr IV Q12H [facility] Last Infusion: 05/23/23 20:08 Dose: Infused Documented By: ROBINSON Insulin Human Lispro (Insulin Lispro 100 Unit/Ml 3 Ml Vial) 0 unit SUBCUT QIDAS [facility]; Protocol Last Admin: 05/23/23 21:08 Dose: 8 unit Documented By: ROBINSON Insulin Human Lispro (Insulin Lispro 100 Unit/Ml 3 Ml Vial) 5 unit SUBCUT QIDAS [facility] Last Admin: 05/23/23 21:08 Dose: 5 unit Documented By: ROBINSON Levothyroxine Sodium (Levothyroxine Sodium 175 Mcg Tablet) 175 mcg PO DAILY@0600 [facility] Last Admin: 05/24/23 05:03 Dose: Not Given Documented By: ROBINSON Non-Admin Reason: NPO Metoprolol Succinate (Metoprolol Succinate Er 50 Mg Tab.Er.24h) 50 mg PO DAILY [facility]; Protocol Last Admin: 05/23/23 08:39 Dose: 50 mg Documented By: MARY GRACE Nystatin (Nystatin Powder 15 Gm Bottle) 1 appl TOPICAL TID [facility]; Protocol Last Admin: 05/23/23 20:08 Dose: 1 appl Documented By: ROBINSON Prednisone (Prednisone 10 Mg Tablet) 10 mg PO DAILY [facility] Last Admin: 05/23/23 08:38 Dose: 10 mg Documented By: MARY GRACE Labs 05/21/23 05:15 05/23/23 06:56 Labs: Laboratory Results - last 24 hr 05/23/23 05/23/23 05/23/23 11:23 16:01 20:46 POC Glucose 155 H 245 H 312 H 05/24/23 07:44 POC Glucose 240 H Microbiology Microbiology Results: Microbiology 05/18/23 05:21 Blood Culture - Final Blood - Venous No growth after 5 days. Assessment and Plan (1) Gram-negative bacteremia: Status: Acute (2) Septic shock: Status: Acute (3) Atrial fibrillation: Status: Acute Plan This is a 73 year old female with history of HFpEF, CKD3, CLL, chronic hypoxic respiratory failure due to COPD, LATONYA, HTN, mood disorder, hypothyroidism, DM2, chronic steroid dependence admitted to the ICU for septic shock secondary to Klebsiella bacteremia, weaned off pressors and downgraded to the medical floor on 05/20 course now complicated by new onset afib with RVR Klebsiella bacteremia thought to be urinary source although urine culture negative b/l ureteral stents seen on abdominal CT -placed 11/2022 repeat blood culture negative increase dose of meropenem to appropriate renal dosing, has Francis cath placed 11/2022 ID consult> ok to use Francis, ertapenem at dc for 14 days plan for ureteral stent removal today, eliquis on hold New onset atrial flutter with RVR echo from october 2022 with preserved ef echo EF 60-65% cardiology consult>start Digoxin MWF chadsvasc score high, Eliquis 5mg BID Intermittent episodes of RVR, metoprolol 5 mg IV as needed metoprolol xl increased to 75mg Eliquis on hold today for ureteral stent removal NSTEMI troponin on 05/17 around 700, no repeat repeat checked due to new afib and up to 3100 discussed with cardiology, no further workup Normal echo without wma HfpEF no exacerbation bumex restarted now with renal function at baseline monitor fluid status closely LEO on CKD3. baseline likely due to acute infection/sepsis follow renal function closely metabolic acidosis likely due to above thrombocytopenia likely due to sepsis follow platelets acute on chronic normocytic anemia history of CLL no documentation of blood loss follow cbc mood disorder restart citalopram, Librium, lorazepam, hydroxyzine continue to hold due to sedation resume as indicated CLL hold acalabrutinib stress-dose hydrocortisone due to encephalopathy -now back to prednisone home dose DM2 seen by speech, rec NDD1 diet with thin liquids continue SSI, follow POCs. A1C 7.9 hypothyroidism continue synthroid COPD incruse ellipta, symbicort morbid obesity diet/exercise counseling HLD statin VTE ppx -Eliquis on hold for ureteral stent removal attending - dr. Dominguez requires ongoing inpatient stay for management of new afib with rvr, klebsiella bacteremia, possible need for removal of francis catheter and ureteral stents, safe disposition Quality Stroke Does the patient have a stroke diagnosis?: No VTE Prior VTE?: No VTE Risk Level:: Medical - moderate - high VTE Device Contraindication: Treatment Not Indicated VTE Drug Contraindication: N/A - Med Ordered
[2023-05-24 11:30] LABS: Glucose, Whole Blood 318 mg/dL (60-115)
[2023-05-24] MEDS: Insulin Lispro 100 UNIT/ML 3 ML VIAL SUBCUT ×4 (11:36→21:03)
[2023-05-24] MEDS: predniSONE 10 MG TABLET PO (11:36)
[2023-05-24] MEDS: Metoprolol Succinate ER 50 MG TAB.ER.24H PO (11:36)
--- NOTE | 2023-05-24 11:39 | P.CONAN_ITS ---
HPI - Anesthesia Eval Consult details Narrative: for cysto, stent removal PMFSH Active Problems Active Problems: All Active Problems (Updated 05/23/23 @ 13:30 by Shahid Quinones MD) Ureteral stent retained (Acute) UTI (urinary tract infection) (Acute) Elevated troponin (Acute) Chronic diastolic heart failure (Acute) Atrial flutter (Acute) Atrial fibrillation (Acute) Gram-negative bacteremia (Acute) Septic shock (Acute) Severe sepsis (Acute) Essential hypertension (Acute) Congestive heart failure (Acute) Morbid obesity (Acute) Acute worsening of stage 3 chronic kidney disease (Acute) CKD (chronic kidney disease) stage 3, GFR 30-59 ml/min (Acute) Diabetes mellitus with hypoglycemia (Acute) Hypotension (Acute) Steroid-induced adrenal suppression (Acute) Steroid dependence (Acute) Urinary tract infection due to ESBL Klebsiella (Acute) MRSA bacteremia (Acute) Pyelonephritis (Acute) Bradycardia (Acute) Sinus bradycardia (Acute) Altered mental status (Acute) LEO (acute kidney injury) (Acute) Steroid-induced hyperglycemia (Acute) Chronic lymphocytic leukemia (CLL), B-cell (Acute) Past Medical History Medical History Congestive heart failure Essential hypertension Acute on chronic heart failure with preserved ejection fraction Acute and chronic respiratory failure with hypoxia (HFpEF) heart failure with preserved ejection fraction Morbid obesity COPD exacerbation CKD (chronic kidney disease) stage 3, GFR 30-59 ml/min LATONYA (obstructive sleep apnea) Anemia Hypoventilation associated with obesity COVID Congestive heart failure Acute respiratory failure with hypoxia Rash Heart block AV second degree Acute UTI Acute kidney injury superimposed on CKD Bradycardia Pleural effusion Acute respiratory failure Pneumonia due to COVID-19 virus Chronic lymphocytic leukemia (CLL), B-cell Dyspnea Congestive heart failure COVID-19 Hypoxia Influenza A CLL (chronic lymphocytic leukemia) Suspected deep tissue injury Klebsiella pneumonia Infection with ESBL Klebsiella oxytoca Lymphadenopathy, mediastinal Pleural effusion Congestive heart failure COVID Lower extremity edema Migraine HTN (hypertension) Pseudotumor cerebri PVD (peripheral vascular disease) Obesity CKD (chronic kidney disease) Diabetes mellitus with insulin therapy Hypothyroidism HLD (hyperlipidemia) Narrative: ECHO: - Normal left ventricular size and systolic function. There is mildly increased left ventricular wall thickness. The visually estimated ejection fraction is between 60-65%. - Mildly increased right ventricular cavity size. There is mildly decreased right ventricular systolic function. - There is severe mitral annular calcification. There is mild mitral valve regurgitation. Mean gradient across MV 12 mm Hg at HR 120/min. Family History Family History Mother Heart attack, Onset Age: 92 Father Heart attack, Onset Age: 66 Other Diabetes Family history of problems with anesthesia: No Surgical History Surgical History S/P appendectomy H/O cataract extraction H/O hysterectomy for benign disease Hx of cholecystectomy History of Problems with Anesthesia: No Social History Social History Household Members: Other Household Members Other:: Assisted living facility Housing: Retirement Housing Other:: [facility] Do you presently have visiting nurse or other home services: Yes Alcohol intake: never Comment: bedrest Patient Tobacco Use Status: Former Tobacco user Second Hand Smoke Exposure: No Advance Directives Date on File: 09/26/20 service: No Current occupational status: disabled Meds Allergies Allergy/AdvReac Type Severity Reaction Status Date / Time oxycodone [From Percocet] Allergy Intermediate Rash Verified 05/17/23 09:33 lisinopril Allergy Unknown Unknown Verified 05/17/23 09:33 Active Medications: Current Medications Acetaminophen (Acetaminophen 325 Mg Tablet) 650 mg PO Q6H PRN PRN Reason: Pain, Mild (Pain Scale 1-3) Albuterol/Ipratropium (Albuterol/Iprat 2.5/0.5mg 3 Ml Ampul.Neb) 3 ml INHALE RQ6H WHILE AWAKE [facility] Last Admin: 05/24/23 07:40 Dose: 3 ml Apixaban (Apixaban 5 Mg Tablet) 5 mg PO BID [facility] Last Admin: 05/23/23 08:38 Dose: 5 mg Artificial Tears (Artificial Tears 15 Ml Drops) 1 drop EYE-BOTH BID [facility] Last Admin: 05/23/23 20:08 Dose: 1 drop Atorvastatin Calcium (Atorvastatin Calcium 10 Mg Tablet) 10 mg PO BEDTIME [facility] Bumetanide (Bumetanide 1 Mg Tablet) 2 mg PO BID@0800,1700 [facility]; Protocol Heparin Sodium (Porcine) 50 (units/ Sodium Chloride 5 ml) 0 units IVFLUSH DAILY [facility] Last Admin: 05/23/23 08:38 Dose: 50 unit Dextrose (Dextrose 50 % 25 Gm/50 Ml Syringe) 25 gm IVPUSH Q15M PRN; Protocol PRN Reason: per Hypoglycemia Standing Ord. Digoxin (Digoxin 0.125 Mg Tablet) 0.125 mg PO MOWEFR [facility] Last Admin: 05/23/23 08:42 Dose: 0.125 mg Escitalopram Oxalate (Escitalopram Oxalate 10 Mg Tablet) 10 mg PO DAILY [facility] Fluticasone/Vilanterol (Fluticasone/Vilanterol 200/25 Blst.W.Dev) 1 puff INHALE RDAILY [facility] Last Admin: 05/24/23 07:40 Dose: 1 puff Glucose (Glucose Gel 15 Gm Gel..Gram.) 15 gm PO Q15M PRN; Protocol PRN Reason: per Hypoglycemia Standing Ord. Hydroxyzine HCl (Hydroxyzine Hcl 25 Mg Tablet) 25 mg PO DAILY [facility] Meropenem 1 gm/ Sodium (Chloride) 100 mls @ 200 mls/hr IV Q12H [facility] Last Infusion: 05/23/23 20:08 Dose: Infused Insulin Human Lispro (Insulin Lispro 100 Unit/Ml 3 Ml Vial) 0 unit SUBCUT QIDACHS [facility]; Protocol Last Admin: 05/23/23 21:08 Dose: 8 unit Insulin Human Lispro (Insulin Lispro 100 Unit/Ml 3 Ml Vial) 5 unit SUBCUT QIDACHS [facility] Last Admin: 05/23/23 21:08 Dose: 5 unit Levothyroxine Sodium (Levothyroxine Sodium 175 Mcg Tablet) 175 mcg PO D AILY@0600 [facility] Last Admin: 05/24/23 05:03 Dose: Not Given Metoprolol Succinate (Metoprolol Succinate Er 50 Mg Tab.Er.24h) 50 mg PO DAILY [facility]; Protocol Last Admin: 05/23/23 08:39 Dose: 50 mg Nystatin (Nystatin Powder 15 Gm Bottle) 1 appl TOPICAL TID [facility]; Protocol Last Admin: 05/23/23 20:08 Dose: 1 appl Prednisone (Prednisone 10 Mg Tablet) 10 mg PO DAILY [facility] Last Admin: 05/23/23 08:38 Dose: 10 mg Prednisone (Prednisone 1 Mg Tablet) 6 mg PO DAILY [facility] Timolol Maleate (Timolol Maleate 0.5 % Oph Mona 5 Ml Drbtl) 1 drop EYE-RIGHT BID [facility] Home Medications Medication Instructions Recorded Confirmed Last Taken Type chlordiazepoxide HCl 10 mg capsule 10 mg PO BEDTIME 10/08/21 05/17/23 Unknown History citalopram 20 mg tablet 20 mg PO DAILY 10/08/21 05/17/23 Unknown History insulin lispro protamine-lispro 0 unit subcut QIDACHS 10/08/21 05/17/23 Unknown History 100 unit/mL (75-25) subcutaneous pen levothyroxine 175 mcg tablet 175 mcg PO DAILY@0600 10/08/21 05/17/23 Unknown History simvastatin 20 mg tablet 20 mg PO BEDTIME 10/08/21 05/17/23 Unknown History sitagliptin phosphate 100 mg 100 mg PO DAILY 10/08/21 05/17/23 Unknown History tablet (Januvia) latanoprost 0.005 % eye drops 1 drp ophthalmic (eye) BEDTIME 11/20/21 05/17/23 Unknown History albuterol sulfate 0.63 mg/3 mL 0.63 mg inhalation Q2H PRN 02/16/22 05/17/23 Unknown History solution for nebulization Shortness Of Breath Or Wheezing brinzolamide 1 %-brimonidine 0.2 % 1 drp ophthalmic-Right BID 02/16/22 05/17/23 Unknown History eye drops,suspension (Simbrinza) defxxltygo-ibytfcjhcnaoh-ffyfckpk 1 tab PO Q6H PRN Headache 02/16/22 05/17/23 Unknown History 50 mg-325 mg-40 mg tablet coenzyme Q10 100 mg capsule 150 mg PO DAILY 02/16/22 05/17/23 Unknown History (CoQ-10) melatonin 5 mg tablet 5 mg PO BEDTIME 02/16/22 05/17/23 Unknown History prednisolone acetate 1 % eye 1 drp ophthalmic-Right DAILY 02/16/22 05/17/23 Unknown History drops,suspension timolol maleate 0.5 % eye drops 1 drp ophthalmic-Right BID 02/16/22 05/17/23 Unknown History carboxymethylcellulose sodium 1 % 1 drp ophthalmic (eye) BID 03/15/22 05/17/23 Unknown History eye drops (Artificial Tears (carboxymethylcellulose)) budesonide-formoterol HFA 160 2 puff inhalation BID 04/27/22 05/17/23 Unknown History mcg-4.5 mcg/actuation aerosol inhaler (Symbicort) umeclidinium 62.5 mcg/actuation 1 inh inhalation DAILY 04/27/22 05/17/23 Unknown History blister powder for inhalation (Incruse Ellipta) guaifenesin 600 mg tablet, 600 mg PO BID cough 06/08/22 05/17/23 Unknown History extended release 12 hr sodium phosphates 19 gram-7 118 ml [place] DAILY PRN Constipation 06/08/22 05/17/23 Unknown History gram/118 mL enema (Fleet Enema) levalbuterol HCl 1.25 mg/3 mL 1.25 mg inhalation QID 07/30/22 05/17/23 Unknown H istory solution for nebulization biotin 5 mg tablet 5 mg PO DAILY 08/11/22 05/17/23 Unknown History bisacodyl 10 mg rectal suppository 10 mg OH DAILY PRN Constipation 08/11/22 05/17/23 Unknown History hydroxychloroquine 200 mg tablet 200 mg PO BID 08/11/22 05/17/23 Unknown History hydroxyzine HCl 25 mg tablet 25 mg PO DAILY 08/11/22 05/17/23 Unknown History lorazepam 0.5 mg tablet 0.5 mg PO BID Anxiety 08/11/22 05/17/23 Unknown History magnesium 200 mg tablet 200 mg PO DAILY 08/11/22 05/17/23 Unknown History riboflavin (vitamin B2) 400 mg 400 mg PO DAILY 08/11/22 05/17/23 Unknown History tablet prednisone 1 mg tablet 6 mg PO DAILY 10/27/22 05/17/23 Unknown History Lactobacillus acidophilus 1 tab PO BID 02/14/23 05/17/23 Unknown History (Acidophilus chewable tablet) bumetanide 1 mg tablet 2 mg PO BID@0800,1700 04/26/23 05/17/23 Unknown History diphenhydramine-zinc acetate 2 1 appl topical QSHIFT 04/26/23 05/17/23 Unknown History %-0.1 % topical cream loperamide 2 mg capsule 2 mg PO Q4H PRN Loose Stool 04/26/23 05/17/23 Unknown History methenamine hippurate 1 gram tablet 1 g PO BID 04/26/23 05/17/23 Unknown History nystatin 100,000 unit/gram topical 1 appl topical BID 04/26/23 05/17/23 Unknown History powder potassium chloride 20 mEq 20 meq PO BEDTIME 04/26/23 05/17/23 Unknown History tablet,extended release Exam Height,Weight and Vital Signs: Height 5 ft 7 in Weight 110.6 kg Last Vital Signs Temp 97.8 F 05/24/23 11:16 Pulse 98 05/24/23 11:16 Resp 18 05/24/23 11:16 BP 150/68 H 05/24/23 11:16 Pulse Ox 99 05/24/23 11:16 O2 Del Method Room Air 05/24/23 11:16 O2 Flow Rate 1 05/19/23 07:00 Pertinent Lab Results Pertinent Lab Results: Laboratory Tests 05/17/23 05/17/23 05/17/23 09:04 09:15 09:20 WBC RBC Hgb Hct MCV MCH MCHC RDW Plt Count MPV Immature Gran % (Auto) Neut % (Auto) Lymph % (Auto) [place] % (Auto) Eos % (Auto) Baso % (Auto) Lymph # (Auto) [place] # (Auto) Eos # (Auto) Baso # (Auto) Abs Immat Gran (auto) Absolute Neuts (auto) Absolute Nucleated RBC Nucleated RBC % (auto) Neutrophils % (Manual) Band Neutrophils % Lymphocytes % (Manual) Monocytes % (Manual) Metamyelocytes % Abs Neuts (Manual) Lymphocytes # (Manual) Monocytes # (Manual) Metamyelocytes # Toxic Granulation Toxic Vacuolation Dohle Bodies Platelet Estimate Large Platelets Plt Morphology Comment RBC Morphology Polychromasia Ovalocytes Kimber[place] Cells Schistocytes Smear Tech's Comments Hold Purple Top PT INR VBG pH VBG pCO2 VBG pO2 VBG HCO3 VBG O2 Saturation VBG Base Excess Sodium Potassium Chloride Carbon Dioxide Anion Gap BUN Creatinine Estim Creat Clear Calc Estimated GFR POC Glucose 37 L* 57 L* 136 H Random Glucose Estimat Average Glucose Hemoglobin A1c % Lactic Acid Lactic Acid F/U @ 2Hr Lactic Acid F/U @ 4Hr Calcium Phosphorus Magnesium Total Bilirubin Direct Bilirubin AST ALT Alkaline Phosphatase Ammonia Troponin I High Sens B-Natriuretic Peptide Total Protein Albumin Lipase TSH Free T4 Hold Yellow Top Urine Color Urine Appearance Urine pH Ur Specific [place] Urine Protein Urine Glucose (UA) Urine Ketones Urine Blood Urine Nitrite Ur Leukocyte Esterase Urine RBC Urine WBC Ur Squamous Epith Cells Urine Bacteria Hyaline Casts Urine Yeast Random Vancomycin COVID-19 (DENY) COVID-19 Clin Com Influenza Type A (JULIANN) Influenza Type B (JULIANN) Influenza A & B Note Blood Type Antibody Screen Crossmatch 05/17/23 05/17/23 05/17/23 09:39 10:03 10:14 WBC 23.9 H RBC 3.69 L Hgb 9.0 L Hct 29.9 L MCV 81.0 MCH 24.4 L MCHC 30.1 L RDW 14.9 Plt Count 212 MPV 11.5 Immature Gran % (Auto) Cancelled Neut % (Auto) Cancelled Lymph % (Auto) Cancelled [place] % (Auto) Cancelled Eos % (Auto) Cancelled Baso % (Auto) Cancelled Lymph # (Auto) Cancelled [place] # (Auto) Cancelled Eos # (Auto) Cancelled Baso # (Auto) Cancelled Abs Immat Gran (auto) Cancelled Absolute Neuts (auto) Cancelled Absolute Nucleated RBC 0.000 Nucleated RBC % (auto) 0.0 Neutrophils % (Manual) 69 Band Neutrophils % 28 H Lymphocytes % (Manual) 3 L Monocytes % (Manual) Metamyelocytes % Abs Neuts (Manual) 23.2 H Lymphocytes # (Manual) 0.7 L Monocytes # (Manual) Metamyelocytes # Toxic Granulation PRESENT Toxic Vacuolation PRESENT Dohle Bodies Platelet Estimate NORMAL Large Platelets PRESENT Plt Morphology Comment NOTED RBC Morphology NOTED Polychromasia 1+ (0-2) Ovalocytes 1+ (5-14) [place] Cells Schistocytes Smear Tech's Comments Hold Purple Top PT 13.1 INR 1.1 VBG pH VBG pCO2 VBG pO2 VBG HCO3 VBG O2 Saturation VBG Base Excess Sodium 134 L Potassium 4.7 Chloride 102 Carbon Dioxide 23 Anion Gap 14 BUN 39 H Creatinine 2.06 H Estim Creat Clear Calc 31.0 Estimated GFR 24 POC Glucose 156 H Random Glucose 47 L* Estimat Average Glucose Hemoglobin A1c % Lactic Acid 2.3 H* Lactic Acid F/U @ 2Hr Lactic Acid F/U @ 4Hr Calcium 8.0 L Phosphorus Magnesium 2.5 Total Bilirubin 0.5 Direct Bilirubin 0.3 AST 189 H ALT 53 H Alkaline Phosphatase 271 H Ammonia 30 Troponin I High Sens 728.9 H* D B-Natriuretic Peptide 941 H Total Protein 6.1 L Albumin 2.5 L Lipase 6 L TSH Free T4 Hold Yellow Top Urine Color Urine Appearance Urine pH Ur Specific [place] Urine Protein Urine Glucose (UA) Urine Ketones Urine Blood Urine Nitrite Ur Leukocyte Esterase Urine RBC Urine WBC Ur Squamous Epith Cells Urine Bacteria Hyaline Casts Urine Yeast Random Vancomycin COVID-19 (DENY) Negative COVID-19 Clin Com See Note Influenza Type A (JULIANN) Negative Influenza Type B (JULIANN) Negative Influenza A & B Note See Note Blood Type Antibody Screen Crossmatch 05/17/23 05/17/23 05/17/23 10:40 11:46 13:44 WBC RBC Hgb Hct MCV MCH MCHC RDW Plt Count MPV Immature Gran % (Auto) Neut % (Auto) Lymph % (Auto) [place] % (Auto) Eos % (Auto) Baso % (Auto) Lymph # (Auto) [place] # (Auto) Eos # (Auto) Baso # (Auto) Abs Immat Gran (auto) Absolute Neuts (auto) Absolute Nucleated RBC Nucleated RBC % (auto) Neutrophils % (Manual) Band Neutrophils % Lymphocytes % (Manual) Monocytes % (Manual) Metamyelocytes % Abs Neuts (Manual) Lymphocytes # (Manual) Monocytes # (Manual) Metamyelocytes # Toxic Granulation Toxic Vacuolation Dohle Bodies Platelet Estimate Large Platelets Plt Morphology Comment RBC Morphology Polychromasia Ovalocytes Kimberly Cells Schistocytes Smear Tech's Comments Hold Purple Top PT INR VBG pH VBG pCO2 VBG pO2 VBG HCO3 VBG O2 Saturation VBG Base Excess Sodium Potassium Chloride Carbon Dioxide Anion Gap BUN Creatinine Estim Creat Clear Calc Estimated GFR POC Glucose 127 H Random Glucose Estimat Average Glucose Hemoglobin A1c % Lactic Acid Lactic Acid F/U @ 2Hr 3.2 H* Lactic Acid F/U @ 4Hr Calcium Phosphorus Magnesium Total Bilirubin Direct Bilirubin AST ALT Alkaline Phosphatase Ammonia Troponin I High Sens B-Natriuretic Peptide Total Protein Albumin Lipase TSH Free T4 Hold Yellow Top Urine Color Yellow Urine Appearance Turbid Urine pH 7.0 Ur Specific [place] 1.015 Urine Protein 100 (2+) H Urine Glucose (UA) 100 H Urine Ketones Negative Urine Blood Small (1+) H Urine Nitrite Negative Ur Leukocyte Esterase Large (3+) H Urine RBC 6-10 H Urine WBC >50 H Ur Squamous Epith Cells 0-2 Urine Bacteria Trace Hyaline Casts 6-10 Urine Yeast Present Random Vancomycin COVID-19 (DENY) COVID-19 Clin Com Influenza Type A (JULIANN) Influenza Type B (JULIANN) Influenza A & B Note Blood Type Antibody Screen Crossmatch 05/17/23 05/17/23 05/17/23 13:46 16:24 17:37 WBC RBC Hgb Hct MCV MCH MCHC RDW Plt Count MPV Immature Gran % (Auto) Neut % (Auto) Lymph % (Auto) [place] % (Auto) Eos % (Auto) Baso % (Auto) Lymph # (Auto) [place] # (Auto) Eos # (Auto) Baso # (Auto) Abs Immat Gran (auto) Absolute Neuts (auto) Absolute Nucleated RBC Nucleated RBC % (auto) Neutrophils % (Manual) Band Neutrophils % Lymphocytes % (Manual) Monocytes % (Manual) Metamyelocytes % Abs Neuts (Manual) Lymphocytes # (Manual) Monocytes # (Manual) Metamyelocytes # Toxic Granulation Toxic Vacuolation Dohle Bodies Platelet Estimate Large Platelets Plt Morphology Comment RBC Morphology Polychromasia Ovalocytes Kimber[place] Cells Schistocytes Smear Tech's Comments Hold Purple Top PT INR VBG pH VBG pCO2 VBG pO2 VBG HCO3 VBG O2 Saturation VBG Base Excess Sodium Potassium Chloride Carbon Dioxide Anion Gap BUN Creatinine Estim Creat Clear Calc Estimated GFR POC Glucose 162 H 173 H Random Glucose Estimat Average Glucose Hemoglobin A1c % Lactic Acid Lactic Acid F/U @ 2Hr Lactic Acid F/U @ 4Hr 1.6 Calcium Phosphorus Magnesium Total Bilirubin Direct Bilirubin AST ALT Alkaline Phosphatase Ammonia Troponin I High Sens B-Natriuretic Peptide Total Protein Albumin Lipase TSH Free T4 Hold Yellow Top Urine Color Urine Appearance Urine pH Ur Specific [place] Urine Protein Urine Glucose (UA) Urine Ketones Urine Blood Urine Nitrite Ur Leukocyte Esterase Urine RBC Urine WBC Ur Squamous Epith Cells Urine Bacteria Hyaline Casts Urine Yeast Random Vancomycin COVID-19 (DENY) COVID-19 Clin Com Influenza Type A (JULIANN) Influenza Type B (JULIANN) Influenza A & B Note Blood Type Antibody Screen Crossmatch 05/18/23 05/18/23 05/18/23 00:18 05:21 05:24 WBC 36.2 H* RBC 3.06 L Hgb 7.6 L Hct 25.5 L MCV 83.3 MCH 24.8 L MCHC 29.8 L RDW 15.2 Plt Count 191 MPV 11.3 Immature Gran % (Auto) Cancelled Neut % (Auto) Cancelled Lymph % (Auto) Cancelled [place] % (Auto) Cancelled Eos % (Auto) Cancelled Baso % (Auto) Cancelled Lymph # (Auto) Cancelled [place] # (Auto) Cancelled Eos # (Auto) Cancelled Baso # (Auto) Cancelled Abs Immat Gran (auto) Cancelled Absolute Neuts (auto) Cancelled Absolute Nucleated RBC 0.000 Nucleated RBC % (auto) 0.0 Neutrophils % (Manual) 81 H Band Neutrophils % 15 H Lymphocytes % (Manual) 1 L Monocytes % (Manual) 2 Metamyelocytes % 1 Abs Neuts (Manual) 34.8 H Lymphocytes # (Manual) 0.4 L Monocytes # (Manual) 0.7 Metamyelocytes # 0.4 Toxic Granulation PRESENT Toxic Vacuolation PRESENT Dohle Bodies PRESENT Platelet Estimate NORMAL Large Platelets PRESENT Plt Morphology Comment NOTED RBC Morphology NOTED Polychromasia Ovalocytes 1+ (5-14) [place] Cells 1+ (0-2) Schistocytes 1+ (0-2) Smear Tech's Comments Hold Purple Top PT INR VBG pH 7.32 VBG pCO2 27 VBG pO2 42 VBG HCO3 14 L VBG O2 Saturation 67.0 VBG Base Excess -9.9 Sodium 137 Potassium 5.0 Chloride 106 Carbon Dioxide 14 L Anion Gap 22 H BUN 39 H Creatinine 2.30 H Estim Creat Clear Calc 27.6 Estimated GFR 21 POC Glucose 217 H Random Glucose 221 H Estimat Average Glucose Hemoglobin A1c % Lactic Acid Lactic Acid F/U @ 2Hr Lactic Acid F/U @ 4Hr Calcium 8.2 L Phosphorus 5.0 H Magnesium 2.8 H Total Bilirubin 0.4 Direct Bilirubin AST 53 H ALT 43 H Alkaline Phosphatase 223 H Ammonia Troponin I High Sens B-Natriuretic Peptide Total Protein 6.2 L Albumin 3.0 L Lipase TSH Free T4 Hold Yellow Top Urine Color Urine Appearance Urine pH Ur Specific [place] Urine Protein Urine Glucose (UA) Urine Ketones Urine Blood Urine Nitrite Ur Leukocyte Esterase Urine RBC Urine WBC Ur Squamous Epith Cells Urine Bacteria Hyaline Casts Urine Yeast Random Vancomycin COVID-19 (DENY) COVID-19 Clin Com Influenza Type A (JULIANN) Influenza Type B (JULIANN) Influenza A & B Note Blood Type Antibody Screen Crossmatch 05/18/23 05/18/23 05/18/23 08:59 11:59 17:45 WBC RBC Hgb Hct MCV MCH MCHC RDW Plt Count MPV Immature Gran % (Auto) Neut % (Auto) Lymph % (Auto) [place] % (Auto) Eos % (Auto) Baso % (Auto) Lymph # (Auto) [place] # (Auto) Eos # (Auto) Baso # (Auto) Abs Immat Gran (auto) Absolute Neuts (auto) Absolute Nucleated RBC Nucleated RBC % (auto) Neutrophils % (Manual) Band Neutrophils % Lymphocytes % (Manual) Monocytes % (Manual) Metamyelocytes % Abs Neuts (Manual) Lymphocytes # (Manual) Monocytes # (Manual) Metamyelocytes # Toxic Granulation Toxic Vacuolation Dohle Bodies Platelet Estimate Large Platelets Plt Morphology Comment RBC Morphology Polychromasia Ovalocytes [place] Cells Schistocytes Smear Tech's Comments Hold Purple Top PT INR VBG pH VBG pCO2 VBG pO2 VBG HCO3 VBG O2 Saturation VBG Base Excess Sodium Potassium Chloride Carbon Dioxide Anion Gap BUN Creatinine Estim Creat Clear Calc Estimated GFR POC Glucose 209 H 219 H 239 H Random Glucose Estimat Average Glucose Hemoglobin A1c % Lactic Acid Lactic Acid F/U @ 2Hr Lactic Acid F/U @ 4Hr Calcium Phosphorus Magnesium Total Bilirubin Direct Bilirubin AST ALT Alkaline Phosphatase Ammonia Troponin I High Sens B-Natriuretic Peptide Total Protein Albumin Lipase TSH Free T4 Hold Yellow Top Urine Color Urine Appearance Urine pH Ur Specific [place] Urine Protein Urine Glucose (UA) Urine Ketones Urine Blood Urine Nitrite Ur Leukocyte Esterase Urine RBC Urine WBC Ur Squamous Epith Cells Urine Bacteria Hyaline Casts Urine Yeast Random Vancomycin COVID-19 (DENY) COVID-19 Clin Com Influenza Type A (JULIANN) Influenza Type B (JULIANN) Influenza A & B Note Blood Type Antibody Screen Crossmatch 05/18/23 05/19/23 05/19/23 23:27 05:41 05:56 WBC 27.9 H RBC 2.88 L Hgb 7.1 L Hct 23.3 L MCV 80.9 MCH 24.7 L MCHC 30.5 L RDW 15.3 Plt Count 134 L D MPV 11.7 Immature Gran % (Auto) 0.8 H Neut % (Auto) 91.6 H Lymph % (Auto) 2.3 L [place] % (Auto) 4.5 Eos % (Auto) 0.5 Baso % (Auto) 0.3 Lymph # (Auto) 0.6 L [place] # (Auto) 1.3 H Eos # (Auto) 0.1 Baso # (Auto) 0.1 Abs Immat Gran (auto) 0.22 H Absolute Neuts (auto) 25.6 H Absolute Nucleated RBC 0.000 Nucleated RBC % (auto) 0.0 Neutrophils % (Manual) Band Neutrophils % Lymphocytes % (Manual) Monocytes % (Manual) Metamyelocytes % Abs Neuts (Manual) Lymphocytes # (Manual) Monocytes # (Manual) Metamyelocytes # Toxic Granulation Toxic Vacuolation Dohle Bodies Platelet Estimate Large Platelets Plt Morphology Comment RBC Morphology Polychromasia Ovalocytes [place] Cells Schistocytes Smear Tech's Comments VERIFIED Hold Purple Top PT INR VBG pH VBG pCO2 VBG pO2 VBG HCO3 VBG O2 Saturation VBG Base Excess Sodium 141 Potassium 4.8 Chloride 109 H Carbon Dioxide 16 L Anion Gap 21 H BUN 47 H Creatinine 2.26 H Estim Creat Clear Calc 28.1 Estimated GFR 21 POC Glucose 221 H 234 H Random Glucose 267 H Estimat Average Glucose Hemoglobin A1c % Lactic Acid Lactic Acid F/U @ 2Hr Lactic Acid F/U @ 4Hr Calcium 8.5 Phosphorus 5.0 H Magnesium 3.0 H Total Bilirubin 0.2 Direct Bilirubin AST 18 ALT 26 Alkaline Phosphatase 226 H Ammonia Troponin I High Sens B-Natriuretic Peptide Total Protein 6.4 L Albumin 3.5 Lipase TSH Free T4 Hold Yellow Top Urine Color Urine Appearance Urine pH Ur Specific [place] Urine Protein Urine Glucose (UA) Urine Ketones Urine Blood Urine Nitrite Ur Leukocyte Esterase Urine RBC Urine WBC Ur Squamous Epith Cells Urine Bacteria Hyaline Casts Urine Yeast Random Vancomycin COVID-19 (DENY) COVID-19 Clin Com Influenza Type A (JULIANN) Influenza Type B (JULIANN) Influenza A & B Note Blood Type Antibody Screen Crossmatch 05/19/23 05/19/23 05/19/23 05:57 10:12 11:13 WBC RBC Hgb Hct MCV MCH MCHC RDW Plt Count MPV Immature Gran % (Auto) Neut % (Auto) Lymph % (Auto) [place] % (Auto) Eos % (Auto) Baso % (Auto) Lymph # (Auto) [place] # (Auto) Eos # (Auto) Baso # (Auto) Abs Immat Gran (auto) Absolute Neuts (auto) Absolute Nucleated RBC Nucleated RBC % (auto) Neutrophils % (Manual) Band Neutrophils % Lymphocytes % (Manual) Monocytes % (Manual) Metamyelocytes % Abs Neuts (Manual) Lymphocytes # (Manual) Monocytes # (Manual) Metamyelocytes # Toxic Granulation Toxic Vacuolation Dohle Bodies Platelet Estimate Large Platelets Plt Morphology Comment RBC Morphology Polychromasia Ovalocytes [place] Cells Schistocytes Smear Tech's Comments Hold Purple Top PT INR VBG pH 7.41 VBG pCO2 25 VBG pO2 61 VBG HCO3 16 L VBG O2 Saturation 91.0 VBG Base Excess -7.0 Sodium Potassium Chloride Carbon Dioxide Anion Gap BUN Creatinine Estim Creat Clear Calc Estimated GFR POC Glucose 215 H Random Glucose Estimat Average Glucose Hemoglobin A1c % Lactic Acid Lactic Acid F/U @ 2Hr Lactic Acid F/U @ 4Hr Calcium Phosphorus Magnesium Total Bilirubin Direct Bilirubin AST ALT Alkaline Phosphatase Ammonia Troponin I High Sens B-Natriuretic Peptide Total Protein Albumin Lipase TSH Free T4 Hold Yellow Top Urine Color Urine Appearance Urine pH Ur Specific [place] Urine Protein Urine Glucose (UA) Urine Ketones Urine Blood Urine Nitrite Ur Leukocyte Esterase Urine RBC Urine WBC Ur Squamous Epith Cells Urine Bacteria Hyaline Casts Urine Yeast Random Vancomycin 21.8 H COVID-19 (DENY) COVID-19 Clin Com Influenza Type A (JULIANN) Influenza Type B (JULIANN) Influenza A & B Note Blood Type Antibody Screen Crossmatch 05/19/23 05/19/23 05/20/23 17:03 23:54 05:04 WBC 19.4 H RBC 3.23 L Hgb 7.8 L Hct 26.2 L MCV 81.1 MCH 24.1 L MCHC 29.8 L RDW 15.7 Plt Count 124 L MPV 12.0 Immature Gran % (Auto) 1.0 H Neut % (Auto) 90.9 H Lymph % (Auto) 3.8 L [place] % (Auto) 4.2 Eos % (Auto) 0.0 Baso % (Auto) 0.1 Lymph # (Auto) 0.7 L [place] # (Auto) 0.8 Eos # (Auto) 0.0 Baso # (Auto) 0.0 Abs Immat Gran (auto) 0.19 H Absolute Neuts (auto) 17.7 H Absolute Nucleated RBC 0.000 Nucleated RBC % (auto) 0.0 Neutrophils % (Manual) Band Neutrophils % Lymphocytes % (Manual) Monocytes % (Manual) Metamyelocytes % Abs Neuts (Manual) Lymphocytes # (Manual) Monocytes # (Manual) Metamyelocytes # Toxic Granulation Toxic Vacuolation Dohle Bodies Platelet Estimate Large Platelets Plt Morphology Comment RBC Morphology Polychromasia Ovalocytes [place] Cells Schistocytes Smear Tech's Comments VERIFIED Hold Purple Top PT INR VBG pH VBG pCO2 VBG pO2 VBG HCO3 VBG O2 Saturation VBG Base Excess Sodium 144 Potassium 4.5 Chloride 115 H Carbon Dioxide 16 L Anion Gap 18 BUN 54 H Creatinine 2.24 H Estim Creat Clear Calc 28.3 Estimated GFR 21 POC Glucose 235 H 238 H Random Glucose 279 H Estimat Average Glucose Hemoglobin A1c % Lactic Acid Lactic Acid F/U @ 2Hr Lactic Acid F/U @ 4Hr Calcium 8.6 Phosphorus 4.1 Magnesium 3.2 H Total Bilirubin 0.3 Direct Bilirubin AST 9 ALT 20 Alkaline Phosphatase 195 H Ammonia Troponin I High Sens B-Natriuretic Peptide Total Protein 6.3 L Albumin 3.2 L Lipase TSH 0.22 L Free T4 0.71 Hold Yellow Top Urine Color Urine Appearance Urine pH Ur Specific [place] Urine Protein Urine Glucose (UA) Urine Ketones Urine Blood Urine Nitrite Ur Leukocyte Esterase Urine RBC Urine WBC Ur Squamous Epith Cells Urine Bacteria Hyaline Casts Urine Yeast Random Vancomycin COVID-19 (DENY) COVID-19 Clin Com Influenza Type A (JULIANN) Influenza Type B (JULIANN) Influenza A & B Note Blood Type Antibody Screen Crossmatch 05/20/23 05/20/23 05/20/23 05:05 05:40 11:54 WBC RBC Hgb Hct MCV MCH MCHC RDW Plt Count MPV Immature Gran % (Auto) Neut % (Auto) Lymph % (Auto) [place] % (Auto) Eos % (Auto) Baso % (Auto) Lymph # (Auto) [place] # (Auto) Eos # (Auto) Baso # (Auto) Abs Immat Gran (auto) Absolute Neuts (auto) Absolute Nucleated RBC Nucleated RBC % (auto) Neutrophils % (Manual) Band Neutrophils % Lymphocytes % (Manual) Monocytes % (Manual) Metamyelocytes % Abs Neuts (Manual) Lymphocytes # (Manual) Monocytes # (Manual) Metamyelocytes # Toxic Granulation Toxic Vacuolation Dohle Bodies Platelet Estimate Large Platelets Plt Morphology Comment RBC Morphology Polychromasia Ovalocytes [place] Cells Schistocytes Smear Tech's Comments Hold Purple Top PT INR VBG pH 7.40 VBG pCO2 28 VBG pO2 37 VBG HCO3 18 L VBG O2 Saturation 59.0 VBG Base Excess -5.5 Sodium Potassium Chloride Carbon Dioxide Anion Gap BUN Creatinine Estim Creat Clear Calc Estimated GFR POC Glucose 264 H 321 H Random Glucose Estimat Average Glucose Hemoglobin A1c % Lactic Acid Lactic Acid F/U @ 2Hr Lactic Acid F/U @ 4Hr Calcium Phosphorus Magnesium Total Bilirubin Direct Bilirubin AST ALT Alkaline Phosphatase Ammonia Troponin I High Sens B-Natriuretic Peptide Total Protein Albumin Lipase TSH Free T4 Hold Yellow Top Urine Color Urine Appearance Urine pH Ur Specific [place] Urine Protein Urine Glucose (UA) Urine Ketones Urine Blood Urine Nitrite Ur Leukocyte Esterase Urine RBC Urine WBC Ur Squamous Epith Cells Urine Bacteria Hyaline Casts Urine Yeast Random Vancomycin COVID-19 (DENY) COVID-19 Clin Com Influenza Type A (JULIANN) Influenza Type B (JULIANN) Influenza A & B Note Blood Type Antibody Screen Crossmatch 05/20/23 05/20/23 05/20/23 13:30 15:09 16:41 WBC RBC Hgb Hct MCV MCH MCHC RDW Plt Count MPV Immature Gran % (Auto) Neut % (Auto) Lymph % (Auto) [place] % (Auto) Eos % (Auto) Baso % (Auto) Lymph # (Auto) [place] # (Auto) Eos # (Auto) Baso # (Auto) Abs Immat Gran (auto) Absolute Neuts (auto) Absolute Nucleated RBC Nucleated RBC % (auto) Neutrophils % (Manual) Band Neutrophils % Lymphocytes % (Manual) Monocytes % (Manual) Metamyelocytes % Abs Neuts (Manual) Lymphocytes # (Manual) Monocytes # (Manual) Metamyelocytes # Toxic Granulation Toxic Vacuolation Dohle Bodies Platelet Estimate Large Platelets Plt Morphology Comment RBC Morphology Polychromasia Ovalocytes [place] Cells Schistocytes Smear Tech's Comments Hold Purple Top SEE NOTE PT INR VBG pH VBG pCO2 VBG pO2 VBG HCO3 VBG O2 Saturation VBG Base Excess Sodium Potassium Chloride Carbon Dioxide Anion Gap BUN Creatinine Estim Creat Clear Calc Estimated GFR POC Glucose 374 H* Random Glucose Estimat Average Glucose Hemoglobin A1c % Lactic Acid Lactic Acid F/U @ 2Hr Lactic Acid F/U @ 4Hr Calcium Phosphorus Magnesium Total Bilirubin Direct Bilirubin AST ALT Alkaline Phosphatase Ammonia Troponin I High Sens 3108.1 H* D 2624.8 H* B-Natriuretic Peptide Total Protein Albumin Lipase TSH Free T4 Hold Yellow Top See Note Urine Color Urine Appearance Urine pH Ur Specific [place] Urine Protein Urine Glucose (UA) Urine Ketones Urine Blood Urine Nitrite Ur Leukocyte Esterase Urine RBC Urine WBC Ur Squamous Epith Cells Urine Bacteria Hyaline Casts Urine Yeast Random Vancomycin COVID-19 (DENY) COVID-19 Clin Com Influenza Type A (JULIANN) Influenza Type B (JULIANN) Influenza A & B Note Blood Type Antibody Screen Crossmatch 05/20/23 05/20/23 05/20/23 18:23 19:16 21:23 WBC RBC Hgb Hct MCV MCH MCHC RDW Plt Count MPV Immature Gran % (Auto) Neut % (Auto) Lymph % (Auto) [place] % (Auto) Eos % (Auto) Baso % (Auto) Lymph # (Auto) [place] # (Auto) Eos # (Auto) Baso # (Auto) Abs Immat Gran (auto) Absolute Neuts (auto) Absolute Nucleated RBC Nucleated RBC % (auto) Neutrophils % (Manual) Band Neutrophils % Lymphocytes % (Manual) Monocytes % (Manual) Metamyelocytes % Abs Neuts (Manual) Lymphocytes # (Manual) Monocytes # (Manual) Metamyelocytes # Toxic Granulation Toxic Vacuolation Dohle Bodies Platelet Estimate Large Platelets Plt Morphology Comment RBC Morphology Polychromasia Ovalocytes [place] Cells Schistocytes Smear Tech's Comments Hold Purple Top PT INR VBG pH VBG pCO2 VBG pO2 VBG HCO3 VBG O2 Saturation VBG Base Excess Sodium Potassium Chloride Carbon Dioxide Anion Gap BUN Creatinine Estim Creat Clear Calc Estimated GFR POC Glucose 321 H 403 H* Random Glucose Estimat Average Glucose Hemoglobin A1c % Lactic Acid Lactic Acid F/U @ 2Hr Lactic Acid F/U @ 4Hr Calcium Phosphorus Magnesium Total Bilirubin Direct Bilirubin AST ALT Alkaline Phosphatase Ammonia Troponin I High Sens B-Natriuretic Peptide Total Protein Albumin Lipase TSH Free T4 Hold Yellow Top Urine Color Urine Appearance Urine pH Ur Specific [place] Urine Protein Urine Glucose (UA) Urine Ketones Urine Blood Urine Nitrite Ur Leukocyte Esterase Urine RBC Urine WBC Ur Squamous Epith Cells Urine Bacteria Hyaline Casts Urine Yeast Random Vancomycin COVID-19 (DENY) COVID-19 Clin Com Influenza Type A (JULIANN) Influenza Type B (JULIANN) Influenza A & B Note Blood Type B Positive Antibody Screen NEGATIVE Crossmatch See Detail 05/21/23 05/21/23 05/21/23 05:15 05:17 07:34 WBC 17.0 H RBC 3.67 L Hgb 9.2 L Hct 30.0 L MCV 81.7 MCH 25.1 L MCHC 30.7 L RDW 15.5 Plt Count 153 L MPV 12.4 H Immature Gran % (Auto) Neut % (Auto) Lymph % (Auto) [place] % (Auto) Eos % (Auto) Baso % (Auto) Lymph # (Auto) [place] # (Auto) Eos # (Auto) Baso # (Auto) Abs Immat Gran (auto) Absolute Neuts (auto) Absolute Nucleated RBC 0.000 Nucleated RBC % (auto) 0.0 Neutrophils % (Manual) Band Neutrophils % Lymphocytes % (Manual) Monocytes % (Manual) Metamyelocytes % Abs Neuts (Manual) Lymphocytes # (Manual) Monocytes # (Manual) Metamyelocytes # Toxic Granulation Toxic Vacuolation Dohle Bodies Platelet Estimate Large Platelets Plt Morphology Comment RBC Morphology Polychromasia Ovalocytes [place] Cells Schistocytes Smear Tech's Comments Hold Purple Top PT INR VBG pH 7.45 H VBG pCO2 25 VBG pO2 92 VBG HCO3 18 L VBG O2 Saturation 100.0 VBG Base Excess -4.4 Sodium 143 Potassium 4.5 Chloride 115 H Carbon Dioxide 19 L Anion Gap 14 BUN 74 H Creatinine 2.49 H Estim Creat Clear Calc 25.8 Estimated GFR 19 POC Glucose 332 H Random Glucose 449 H* Estimat Average Glucose 180 Hemoglobin A1c % 7.9 H Lactic Acid Lactic Acid F/U @ 2Hr Lactic Acid F/U @ 4Hr Calcium 8.2 L Phosphorus Magnesium Total Bilirubin Direct Bilirubin AST ALT Alkaline Phosphatase Ammonia Troponin I High Sens B-Natriuretic Peptide Total Protein Albumin Lipase TSH Free T4 Hold Yellow Top Urine Color Urine Appearance Urine pH Ur Specific [place] Urine Protein Urine Glucose (UA) Urine Ketones Urine Blood Urine Nitrite Ur Leukocyte Esterase Urine RBC Urine WBC Ur Squamous Epith Cells Urine Bacteria Hyaline Casts Urine Yeast Random Vancomycin COVID-19 (DENY) COVID-19 Clin Com Influenza Type A (JULIANN) Influenza Type B (JULIANN) Influenza A & B Note Blood Type Antibody Screen Crossmatch 05/21/23 05/21/23 05/21/23 11:35 16:46 20:21 WBC RBC Hgb Hct MCV MCH MCHC RDW Plt Count MPV Immature Gran % (Auto) Neut % (Auto) Lymph % (Auto) [place] % (Auto) Eos % (Auto) Baso % (Auto) Lymph # (Auto) [place] # (Auto) Eos # (Auto) Baso # (Auto) Abs Immat Gran (auto) Absolute Neuts (auto) Absolute Nucleated RBC Nucleated RBC % (auto) Neutrophils % (Manual) Band Neutrophils % Lymphocytes % (Manual) Monocytes % (Manual) Metamyelocytes % Abs Neuts (Manual) Lymphocytes # (Manual) Monocytes # (Manual) Metamyelocytes # Toxic Granulation Toxic Vacuolation Dohle Bodies Platelet Estimate Large Platelets Plt Morphology Comment RBC Morphology Polychromasia Ovalocytes [place] Cells Schistocytes Smear Tech's Comments Hold Purple Top PT INR VBG pH VBG pCO2 VBG pO2 VBG HCO3 VBG O2 Saturation VBG Base Excess Sodium Potassium Chloride Carbon Dioxide Anion Gap BUN Creatinine Estim Creat Clear Calc Estimated GFR POC Glucose 390 H* 274 H 235 H Random Glucose Estimat Average Glucose Hemoglobin A1c % Lactic Acid Lactic Acid F/U @ 2Hr Lactic Acid F/U @ 4Hr Calcium Phosphorus Magnesium Total Bilirubin Direct Bilirubin AST ALT Alkaline Phosphatase Ammonia Troponin I High Sens B-Natriuretic Peptide Total Protein Albumin Lipase TSH Free T4 Hold Yellow Top Urine Color Urine Appearance Urine pH Ur Specific [place] Urine Protein Urine Glucose (UA) Urine Ketones Urine Blood Urine Nitrite Ur Leukocyte Esterase Urine RBC Urine WBC Ur Squamous Epith Cells Urine Bacteria Hyaline Casts Urine Yeast Random Vancomycin COVID-19 (DENY) COVID-19 Clin Com Influenza Type A (JULIANN) Influenza Type B (JULIANN) Influenza A & B Note Blood Type Antibody Screen Crossmatch 05/22/23 05/22/23 05/22/23 07:12 07:28 11:26 WBC RBC Hgb Hct MCV MCH MCHC RDW Plt Count MPV Immature Gran % (Auto) Neut % (Auto) Lymph % (Auto) [place] % (Auto) Eos % (Auto) Baso % (Auto) Lymph # (Auto) [place] # (Auto) Eos # (Auto) Baso # (Auto) Abs Immat Gran (auto) Absolute Neuts (auto) Absolute Nucleated RBC Nucleated RBC % (auto) Neutrophils % (Manual) Band Neutrophils % Lymphocytes % (Manual) Monocytes % (Manual) Metamyelocytes % Abs Neuts (Manual) Lymphocytes # (Manual) Monocytes # (Manual) Metamyelocytes # Toxic Granulation Toxic Vacuolation Dohle Bodies Platelet Estimate Large Platelets Plt Morphology Comment RBC Morphology Polychromasia Ovalocytes [place] Cells Schistocytes Smear Tech's Comments Hold Purple Top PT INR VBG pH VBG pCO2 VBG pO2 VBG HCO3 VBG O2 Saturation VBG Base Excess Sodium Potassium Chloride Carbon Dioxide Anion Gap BUN Creatinine 2.21 H Estim Creat Clear Calc 29.0 Estimated GFR 22 POC Glucose 314 H 293 H Random Glucose Estimat Average Glucose Hemoglobin A1c % Lactic Acid Lactic Acid F/U @ 2Hr Lactic Acid F/U @ 4Hr Calcium Phosphorus Magnesium Total Bilirubin Direct Bilirubin AST ALT Alkaline Phosphatase Ammonia Troponin I High Sens B-Natriuretic Peptide Total Protein Albumin Lipase TSH Free T4 Hold Yellow Top Urine Color Urine Appearance Urine pH Ur Specific [place] Urine Protein Urine Glucose (UA) Urine Ketones Urine Blood Urine Nitrite Ur Leukocyte Esterase Urine RBC Urine WBC Ur Squamous Epith Cells Urine Bacteria Hyaline Casts Urine Yeast Random Vancomycin COVID-19 (DENY) COVID-19 Clin Com Influenza Type A (JULIANN) Influenza Type B (JULIANN) Influenza A & B Note Blood Type Antibody Screen Crossmatch 05/22/23 05/22/23 05/23/23 15:44 20:50 06:56 WBC RBC Hgb Hct MCV MCH MCHC RDW Plt Count MPV Immature Gran % (Auto) Neut % (Auto) Lymph % (Auto) [place] % (Auto) Eos % (Auto) Baso % (Auto) Lymph # (Auto) [place] # (Auto) Eos # (Auto) Baso # (Auto) Abs Immat Gran (auto) Absolute Neuts (auto) Absolute Nucleated RBC Nucleated RBC % (auto) Neutrophils % (Manual) Band Neutrophils % Lymphocytes % (Manual) Monocytes % (Manual) Metamyelocytes % Abs Neuts (Manual) Lymphocytes # (Manual) Monocytes # (Manual) Metamyelocytes # Toxic Granulation Toxic Vacuolation Dohle Bodies Platelet Estimate Large Platelets Plt Morphology Comment RBC Morphology Polychromasia Ovalocytes [place] Cells Schistocytes Smear Tech's Comments Hold Purple Top SEE NOTE PT INR VBG pH VBG pCO2 VBG pO2 VBG HCO3 VBG O2 Saturation VBG Base Excess Sodium Potassium Chloride Carbon Dioxide Anion Gap BUN Creatinine 1.89 H Estim Creat Clear Calc 33.5 Estimated GFR 26 POC Glucose 243 H 327 H Random Glucose Estimat Average Glucose Hemoglobin A1c % Lactic Acid Lactic Acid F/U @ 2Hr Lactic Acid F/U @ 4Hr Calcium Phosphorus Magnesium Total Bilirubin Direct Bilirubin AST ALT Alkaline Phosphatase Ammonia Troponin I High Sens B-Natriuretic Peptide Total Protein Albumin Lipase TSH Free T4 Hold Yellow Top Urine Color Urine Appearance Urine pH Ur Specific [place] Urine Protein Urine Glucose (UA) Urine Ketones Urine Blood Urine Nitrite Ur Leukocyte Esterase Urine RBC Urine WBC Ur Squamous Epith Cells Urine Bacteria Hyaline Casts Urine Yeast Random Vancomycin COVID-19 (DENY) COVID-19 Clin Com Influenza Type A (JULIANN) Influenza Type B (JULIANN) Influenza A & B Note Blood Type Antibody Screen Crossmatch 05/23/23 05/23/23 05/23/23 07:26 11:23 16:01 WBC RBC Hgb Hct MCV MCH MCHC RDW Plt Count MPV Immature Gran % (Auto) Neut % (Auto) Lymph % (Auto) [place] % (Auto) Eos % (Auto) Baso % (Auto) Lymph # (Auto) [place] # (Auto) Eos # (Auto) Baso # (Auto) Abs Immat Gran (auto) Absolute Neuts (auto) Absolute Nucleated RBC Nucleated RBC % (auto) Neutrophils % (Manual) Band Neutrophils % Lymphocytes % (Manual) Monocytes % (Manual) Metamyelocytes % Abs Neuts (Manual) Lymphocytes # (Manual) Monocytes # (Manual) Metamyelocytes # Toxic Granulation Toxic Vacuolation Dohle Bodies Platelet Estimate Large Platelets Plt Morphology Comment RBC Morphology Polychromasia Ovalocytes [place] Cells Schistocytes Smear Tech's Comments Hold Purple Top PT INR VBG pH VBG pCO2 VBG pO2 VBG HCO3 VBG O2 Saturation VBG Base Excess Sodium Potassium Chloride Carbon Dioxide Anion Gap BUN Creatinine Estim Creat Clear Calc Estimated GFR POC Glucose 175 H 155 H 245 H Random Glucose Estimat Average Glucose Hemoglobin A1c % Lactic Acid Lactic Acid F/U @ 2Hr Lactic Acid F/U @ 4Hr Calcium Phosphorus Magnesium Total Bilirubin Direct Bilirubin AST ALT Alkaline Phosphatase Ammonia Troponin I High Sens B-Natriuretic Peptide Total Protein Albumin Lipase TSH Free T4 Hold Yellow Top Urine Color Urine Appearance Urine pH Ur Specific [place] Urine Protein Urine Glucose (UA) Urine Ketones Urine Blood Urine Nitrite Ur Leukocyte Esterase Urine RBC Urine WBC Ur Squamous Epith Cells Urine Bacteria Hyaline Casts Urine Yeast Random Vancomycin COVID-19 (DENY) COVID-19 Clin Com Influenza Type A (JULIANN) Influenza Type B (JULIANN) Influenza A & B Note Blood Type Antibody Screen Crossmatch 05/23/23 05/24/23 05/24/23 20:46 07:44 11:09 WBC RBC Hgb Hct MCV MCH MCHC RDW Plt Count MPV Immature Gran % (Auto) Neut % (Auto) Lymph % (Auto) [place] % (Auto) Eos % (Auto) Baso % (Auto) Lymph # (Auto) [place] # (Auto) Eos # (Auto) Baso # (Auto) Abs Immat Gran (auto) Absolute Neuts (auto) Absolute Nucleated RBC Nucleated RBC % (auto) Neutrophils % (Manual) Band Neutrophils % Lymphocytes % (Manual) Monocytes % (Manual) Metamyelocytes % Abs Neuts (Manual) Lymphocytes # (Manual) Monocytes # (Manual) Metamyelocytes # Toxic Granulation Toxic Vacuolation Dohle Bodies Platelet Estimate Large Platelets Plt Morphology Comment RBC Morphology Polychromasia Ovalocytes [place] Cells Schistocytes Smear Tech's Comments Hold Purple Top PT INR VBG pH VBG pCO2 VBG pO2 VBG HCO3 VBG O2 Saturation VBG Base Excess Sodium Potassium Chloride Carbon Dioxide Anion Gap BUN Creatinine Estim Creat Clear Calc Estimated GFR POC Glucose 312 H 240 H 318 H Random Glucose Estimat Average Glucose Hemoglobin A1c % Lactic Acid Lactic Acid F/U @ 2Hr Lactic Acid F/U @ 4Hr Calcium Phosphorus Magnesium Total Bilirubin Direct Bilirubin AST ALT Alkaline Phosphatase Ammonia Troponin I High Sens B-Natriuretic Peptide Total Protein Albumin Lipase TSH Free T4 Hold Yellow Top Urine Color Urine Appearance Urine pH Ur Specific [place] Urine Protein Urine Glucose (UA) Urine Ketones Urine Blood Urine Nitrite Ur Leukocyte Esterase Urine RBC Urine WBC Ur Squamous Epith Cells Urine Bacteria Hyaline Casts Urine Yeast Random Vancomycin COVID-19 (DENY) COVID-19 Clin Com Influenza Type A (JULIANN) Influenza Type B (JULIANN) Influenza A & B Note Blood Type Antibody Screen Crossmatch Narrative Narrative: Creat 1.89. Airway Mallampati Class: III TM Dist: <=3cm Neck ROM: Full Denture: Upper and Lower Heart: See echo report above. RHF w prob mitral stenosis. IVC OK. Lungs: OK Assessment and Plan Assessment Anesthesia Assessment: Anesthesia Plan Discussed Final Anesthetic Review Family History of Problems with Anesthesia: No History of Problems with Anesthesia: No NPO: Yes ASA Class: IV Final Preanesthetic Review: No Changes in Pt Med Stat, Meds/Allgs Chart Reviewed, Consent Obtained/Reviewed and Anes Risks/Benef Reviewed Patient Risk: High Procedure Risk: Low Anesthetic Plan Anesthetic Plan: TIVA Disposition: Standard PACU
[2023-05-24] MEDS: Artificial Tears 15 ML DROPS 1 DROP EYE-BOTH ×2 (11:40→21:02)
[2023-05-24] MEDS: Nystatin Powder 15 GM BOTTLE 1 APPL TOPICAL ×3 (11:40→21:09)
[2023-05-24] MEDS: Heparin Sodium,Porcine Flush 50 UNITS, 0.9 % Sodium Chloride Flush 5 ML IVFLUSH (11:42)
--- NOTE | 2023-05-24 12:18 | MHC.SHP ---
Pre-Procedural Eval Section A - 24 Hr Update-Section A only Date of Service: 05/24/23 The patient is an INPATIENT: Yes The patient has been examined within 24 hours of the surgical procedure. The History & Physical has been completed within 30 days and I have reviewed it.: Yes Section B - Complete if H&P > 30 days Chief Complaint: septic shock, UTI, ureteral stent retained Allergies: Allergies Allergy/AdvReac Type Severity Reaction Status Date / Time oxycodone [From Percocet] Allergy Intermediate Rash Verified 05/17/23 09:33 lisinopril Allergy Unknown Unknown Verified 05/17/23 09:33 Plan Diagnosis/Plan: Unchanged I have reviewed the history and physical and performed a pertinent physical examination on my patient. No changes have occurred unless specified. Cystoscopy removal bilateral ureteral stents, possible retrograde Time Spent With Patient Time: Total time managing care of this patient today ____ minutes.
--- NOTE | 2023-05-24 13:16 | P.OP_ITS ---
Operative Note Operative Note Date of Service: 05/24/23 Narrative: PreOperative Diagnosis:?? LEO on CKD, UTI Sepsis, retained bilateral ureteral stents Post Operative Diagnosis:?? ?LEO on CKD, UTI Sepsis, retained bilateral ureteral stents Procedure: - cystoscopy,right stent removal, left stent removal under fluoroscopy guidance Surgeon:?Dr Shahid Quinones Anesthesia:? MAC, local Indications for procedure: Retatined bilateral ureteral stent, CKD, UTI Procedure: After informed consent was verified the patient was brought to the operating placed on the OR table in supine position.? General Anesthesia was administered per protocol.? The patient was placed in lithotomy position, prepped and draped in the usual sterile fashion.? Safety pause time-out and side of surgery confirmed.? Antibiotics confirmed. Gentamycin 160 mg IV 2% lidocaine jelly inserted transurethrally. A 22 [place] cystoscope was ins erted transurethrally, There was purulent urine drained and the bladder needed to be irrigated to allow adequate visualization. The bladder was visualized.? Both ureteral stents were noted,bilateral orifices were in normal position. The grasping forceps were used and the right ureteral stent was removed without difficulty, followed by removal of the left ureteral stent with fluoroscopy The bladder was emptied.? The rigid cystoscope was removed. ? An 18 fr gibson was placed to gravity drainage. The patient tolerated the procedure well and was brought to the recovery room in stable condition. Complications: None Drains: 18 fr gibson catheter 10 mL balloon
[2023-05-24 15:39] LABS: Creatinine Clr Calc Pharmacy 46.2; Estimated Glomerular Filt Rate 37
[2023-05-24 16:16] LABS: Glucose, Whole Blood 158 mg/dL (60-115)
[2023-05-24] MEDS: Bumetanide 1 MG TABLET 2 MG PO (17:16)
[2023-05-24] MEDS: Acetaminophen 325 MG TABLET 650 MG PO (17:16)
[2023-05-24 20:43] LABS: Glucose, Whole Blood 331 mg/dL (60-115)
[2023-05-24] MEDS: Atorvastatin Calcium 10 MG TABLET PO (21:02)
[2023-05-24] MEDS: Apixaban 5 MG TABLET PO (21:02)
[2023-05-24] MEDS: timoloL maleate 0.5 % Oph Sol 5 ML DRBTL 1 DROP EYE-RIGHT (21:02)
[2023-05-25] VITALS (7 sets, daily range): BP systolic 121–147; BP diastolic 58–75; PULSE 94–98; RESP 18–20; TEMP 36.2–36.8; O2SAT 97–100; BMI 37.9
[2023-05-25] MEDS: Levothyroxine Sodium 175 MCG TABLET PO (06:04)
[2023-05-25 06:49] LABS: Creatinine Clr Calc Pharmacy 44.1; Estimated Glomerular Filt Rate 35
[2023-05-25 07:25] LABS: Glucose, Whole Blood 208 mg/dL (60-115)
[2023-05-25] MEDS: Bumetanide 1 MG TABLET 2 MG PO (08:23)
[2023-05-25] MEDS: predniSONE 10 MG TABLET PO (08:23)
[2023-05-25] MEDS: Heparin Sodium,Porcine Flush 50 UNITS, 0.9 % Sodium Chloride Flush 5 ML IVFLUSH (08:23)
[2023-05-25] MEDS: Escitalopram Oxalate 10 MG TABLET PO (08:23)
[2023-05-25] MEDS: Apixaban 5 MG TABLET PO (08:23)
[2023-05-25] MEDS: Metoprolol Succinate ER 50 MG TAB.ER.24H PO (08:24)
[2023-05-25] MEDS: hydrOXYzine HCL 25 MG TABLET PO (08:24)
[2023-05-25] MEDS: predniSONE 1 MG TABLET 6 MG PO (08:24)
[2023-05-25] MEDS: Insulin Lispro 100 UNIT/ML 3 ML VIAL SUBCUT ×4 (08:24→12:47)
[2023-05-25] MEDS: Artificial Tears 15 ML DROPS 1 DROP EYE-BOTH (08:25)
[2023-05-25] MEDS: Nystatin Powder 15 GM BOTTLE 1 APPL TOPICAL (08:25)
[2023-05-25] MEDS: timoloL maleate 0.5 % Oph Sol 5 ML DRBTL 1 DROP EYE-RIGHT (08:27)
[2023-05-25] MEDS: Digoxin 0.125 MG TABLET PO (08:27)
[2023-05-25] MEDS: Fluticasone/Vilanterol 200/25 BLST.W.DEV 1 PUFF INHALE (08:58)
--- NOTE | 2023-05-25 10:20 | P.DS_ITS ---
DS: Providers Provider Date of Service: 05/25/23 Date of admission: 05/17/23 11:28 Date of discharge: 05/25/23 Primary care physician: Tam Corea MD Consults: 05/17/23 16:06 Consult to Wound Care Routine Reason for consultation: Skin Integrity Concerns 05/20/23 10:40 Consult to Infectious Diseases Routine Consulting Provider: [facility] [place] Infectious Disease Reason for consultation: ESBL klebsiella bacteremia Has provider been notified: No 05/20/23 13:01 Consult to Cardiology Routine Consulting Provider: [facility] [place] Cardiovascular Services Reason for consultation: new afib rvr Has provider been notified: No 05/20/23 13:42 Consult to Urology Routine Consulting Provider: Shahid Quinones Reason for consultation: septic shock. growing klebesiella. has b/l ureteral stents ?need removal Has provider been notified: No DS: Diagnosis Discharge Diagnosis (1) Gram-negative bacteremia: Status: Acute (2) Septic shock: Status: Resolved (3) Atrial fibrillation: Status: Inactive DS: Summary Hospital Course Hospital Course: History and physical as per admitting provider. 73-year-old lady with underlying history of CLL, obesity, obstructive sleep apnea, diastolic dysfunction, COPD on supplemental O2 admitted on 05/17/2023 with septic shock likely with urinary source with poor response to initial IV fluid resuscitation requiring pressor support. Patient has been started on empiric antibiotics and admitted to intensive care unit. CT of abdomen/pelvis/chest are pending. 73-year-old woman initially treated for septic shock requiring pressor support. Likely source urinary but found to have Klebsiella pneumoniae bacteremia. She had altered mental status with hypotension. She was treated with empiric antibiotic treatment and mental status significantly improved. She developed NSTEMI with troponin peaking around 700, already started on Eliquis for new onset atrial fibrillation, normal echocardiogram without wall motion abnormalities. Discussed with Cardiology no further treatment. She also developed new onset atrial flutter with rapid ventricular response. She was tr eated with IV digoxin, IV metoprolol. Started on metoprolol XL with good effect. Digoxin Tuesday and Tuesday. She should continue Eliquis 5 mg b.i.d..Klebsiella bacteremia she will be on Heart failure preserved ejection fraction. May continue on Bumex LEO on CKD stage 3. Likely secondary to sepsis, Bumex had been on hold creatinine now at baseline. May resume Bumex at disc Metabolic acidosis secondary to sepsis. Resolved Thrombocytopenia. Likely secondary to sepsis...[id number] f/up Acute on chronic normocytic anemia. With history of CLL, no obvious bleeding or blood loss, CBC stable Mental health. Continue escitalopram, Librium, lorazepam, hydroxyzine Diabetes mellitus type 2 A1c 7.9. Continue medications. Morbid obesity. BMI 38.2. Discussed importance of weight management as this may be contributing to worsening of other comorbidities Hyperlipidemia. Continue statin Time Attestation Discharge coordination time: Greater than 30 minutes Quality: Safe Use of Opioids Does Pt have an Active Cancer Diagnosis on the Problem List?: No Quality: Stroke Does the patient have a stroke diagnosis?: No Physical Exam Vital Signs: Vital Signs: Last Vital Signs Temp 97.3 F 05/25/23 07:42 Pulse 98 05/25/23 08:58 Resp 20 05/25/23 08:58 BP 147/69 H 05/25/23 07:42 Pulse Ox 99 05/25/23 07:24 O2 Del Method Room Air 05/25/23 07:24 O2 Flow Rate 4 05/24/23 13:34 BMI result Body Mass Index 37.9 DS: Data Data Completed and Pending Completed studies during hospitalization [Text1]: Procedures Assistance with Respiratory Ventilation, Less than 24 Consecutive Hours, Continuous Positive Airway Pressure (02/14/23) Dilation of Bilateral Ureters with Intraluminal Device, Via Natural or Artificial Opening Endoscopic (10/28/22) Drainage of Left Main Bronchus, Via Natural or Artificial Opening Endoscopic, Diagnostic (11/19/21) Drainage of Left Pleural Cavity, Percutaneous Approach (11/19/21) Drainage of Right Main Bronchus, Via Natural or Artificial Opening Endoscopic, Diagnostic (11/19/21) Drainage of Right Pleural Cavity, Percutaneous Approach (11/19/21) Excision of Right Inguinal Lymphatic, Percutaneous Approach, Diagnostic (11/19/21) Excision of Thorax Lymphatic, Percutaneous Endoscopic Approach, Diagnostic (11/19/21) Fluoroscopy of Kidneys, Ureters and Bladder (10/28/22) Insertion of Endotracheal Airway into Trachea, Via Natural or Artificial Opening (11/19/21) Insertion of Infusion Device into Superior Vena Cava, Percutaneous Approach (11/26/22) Insertion of Tunneled Vascular Access Device into Chest Subcutaneous Tissue and Fascia, Percutaneous Approach (11/26/22) Inspection of Tracheobronchial Tree, Via Natural or Artificial Opening Endoscopic (11/19/21) Introduction of Remdesivir Anti-infective into Peripheral Vein, Percutaneous Approach, [employer] (12/31/22) Introduction of Vasopressor into Central Vein, Percutaneous Approach (10/28/22) Performance of Urinary Filtration, Intermittent, Less than 6 Hours Per Day (10/28/22) Respiratory Ventilation, Greater than 96 Consecutive Hours (11/19/21) Transfusion of Nonautologous Red Blood Cells into Peripheral Vein, Percutaneous Approach (10/28/22) Ultrasonography of Superior Vena Cava, Guidance (11/26/22) Labs on day of discharge: Laboratory Results - last 24 hr 05/20/23 05/24/23 05/24/23 18:23 11:09 15:06 Hold Purple Top Creatinine 1.41 H Estim Creat Clear Calc 46.2 Estimated GFR 37 POC Glucose 318 H Crossmatch See Detail 05/24/23 05/24/23 05/25/23 16:12 20:30 05:59 Hold Purple Top SEE NOTE Creatinine 1.47 H Estim Creat Clear Calc 44.1 Estimated GFR 35 POC Glucose 158 H 331 H Crossmatch 05/25/23 07:17 Hold Purple Top Creatinine Estim Creat Clear Calc Estimated GFR POC Glucose 208 H Crossmatch Discharge Plan Discharge Anticipated Discharge Date/Time: 05/24/23 09:33 Patient Disposition: Xfer [facility] Discharge Diagnosis: Klebsiella pneumoniae bacteremia New onset atrial flutter with rapid ventricular response NSTEMI LEO on CKD stage 3 Metabolic acidosis Thrombocytopenia Acute on chronic normocytic anemia Referrals: [facility] [Outside] - 1 Day (RESUMPTION OF LTC) Tam Corea MD [Primary Care Provider] - 1 Week Discharge Medications: New Eliquis 5 mg Tablet 5 mg PO BID Qty: 60 0RF metoprolol succinate 50 mg Tablet Extended Release 24 Hr 50 mg PO DAILY Qty: 30 0RF Protocol: Hold for SBP/HR < HOLD for SBP < : 90 HOLD for HR < : 60 digoxin 125 mcg (0.125 mg) Tablet 0.125 mg PO MOWEFR Qty: 30 0RF ertapenem 1 gram recon soln 1 g IV DAILY 14 Days Qty: 5 0RF Continued levothyroxine 175 mcg tablet 175 mcg PO DAILY@0600 citalopram 20 mg tablet 20 mg PO DAILY simvastatin 20 mg tablet 20 mg PO BEDTIME chlordiazepoxide HCl 10 mg capsule 10 mg PO BEDTIME insulin lispro protamin-lispro 100 unit/mL (75-25) insulin pen 0 unit subcut QIDACHS Protocol: Insulin Correction Scale Less than or equal to 110 ---- Give (units): 0 111 to 150 Give (units): 0 151 to 200 Give (units): 2 201 to 250 Give (units): 4 251 to 300 Give (units): 6 301 to 350 Give (units): 8 Greater than 350 Give (units): 10 Call MD if Blood Glucose > : 350 Januvia 100 mg tablet 100 mg PO DAILY Fleet Enema 19-7 gram/118 mL Enema 118 ml RI DAILY PRN (Reason: Constipation) guaifenesin 600 mg Tablet Extended Release 12hr 600 mg PO BID lorazepam 0.5 mg tablet 0.5 mg PO BID bisacodyl 10 mg Suppository 10 mg RI DAILY PRN (Reason: Constipation) hydroxyzine HCl 25 mg tablet 25 mg PO DAILY hydroxychloroquine 200 mg tablet 200 mg PO BID magnesium 200 mg Tablet 200 mg PO DAILY biotin 5 mg Tablet 5 mg PO DAILY riboflavin (vitamin B2) 400 mg Tablet 400 mg PO DAILY Incruse Ellipta 62.5 mcg/actuation Blister With Device 1 inh INHALATION DAILY budesonide-formoterol [Symbicort] 160-4.5 mcg/actuation Hfa Aerosol Inhaler 2 puff INHALATION BID latanoprost 0.005 % drops 1 drp ophthalmic (eye) BEDTIME Rx Instructions: 1 drop into both eyes albuterol sulfate 0.63 mg/3 mL Solution For Nebulization 0.63 mg INHALATION Q2H PRN (Reason: Shortness Of Breath Or Wheezing) bkwybjyvei-gprzginstwyte-xsmh 50-325-40 mg tablet 1 tab PO Q6H PRN (Reason: Headache) prednisolone acetate 1 % drops,suspension 1 drp ophthalmic-Right DAILY timolol maleate 0.5 % drops 1 drp ophthalmic-Right BID coenzyme Q10 [CoQ-10] 100 mg Capsule 150 mg PO DAILY melatonin 5 mg Tablet 5 mg PO BEDTIME Simbrinza 1-0.2 % drops,suspension 1 drp ophthalmic-Right BID Artificial Tears (cmc) 1 % Drops 1 drp OPHTHALMIC (EYE) BID Acidophilus Tablet,Chewable 1 tab PO BID Jardiance 10 mg Tablet 10 mg PO DAILY Qty: 30 0RF Calquence (acalabrutinib mal) 100 mg tablet 100 mg PO BID Qty: 60 6RF loperamide 2 mg Capsule 2 mg PO Q4H PRN (Reason: Loose Stool) Rx Instructions: administer after each loose stool until symptoms controlled; do not exceed 8 mg per 24 hrs diphenhydramine-zinc acetate 2-0.1 % Cream 1 appl TOPICAL QSHIFT methenamine hippurate 1 gram Tablet 1 g PO BID nystatin 100,000 unit/gram Powder 1 appl TOPICAL BID potassium chloride 20 mEq Tablet Extended Release 20 meq PO BEDTIME bumetanide 1 mg tablet 2 mg PO BID@0800,1700 Protocol: Hold for SBP< HOLD for SBP < : 90 levalbuterol HCl 1.25 mg/3 mL Solution For Nebulization 1.25 mg INHALATION QID potassium chloride 20 mEq Tablet,Er Particles/Crystals 40 meq PO DAILY Qty: 30 0RF prednisone 1 mg Tablet 6 mg PO DAILY Discharge Orders: Discharge Order (Routine); Ordered 05/25/23 Ordered By: Logan Martinez Diet: Advance to usual diet Activity on Discharge: As tolerated Stand Alone Forms: Patient Portal Discharge page Care Plan Goals: Continue IV ertapenem for 14 days, may use Chavez catheter (placed 11/2022) Started on Eliquis and metoprolol for new onset atrial flutter Health Concerns: Klebsiella pneumoniae bacteremia New onset atrial flutter with rapid ventricular response NSTEMI LEO on CKD stage 3 Metabolic acidosis Thrombocytopenia Acute on chronic normocytic anemia Plan of Treatment: Follow-up with primary care provider as needed Take all medications as prescribed Assessment: See discharge summary
--- NOTE | 2023-05-25 11:02 | MHC.CM.PN ---
Second IMM sent to family. Pt has been medically cleared for DC, she will return to [facility] via ambulance today.
[2023-05-25 12:12] LABS: Glucose, Whole Blood 253 mg/dL (60-115)
--- NOTE | 2023-05-25 12:24 | MHC.SL.SWA ---
Risk of Aspiration Due to: Medically Fragile History of Pneumonia Dysphasia Diet Status: No change Liquid Consistency and Strategies for Safe Swallow: Liquid Intake Recommendation: Thin Liquid Intake Strategies: Small Sips Solid Food Consistency: Dietary Recommendations: Grnd/Mech Altered (NDD2) Oral Medication Intake: Whole with Puree Please contact the pharmacy regarding appropriate crushable or liquid drug formulations that are available whenever modified delivery is recommended. Compensatory Strategies and Precautions to be Taken for Safe Swallow: Sitting Upright (90 deg) Supervision While Eating and Drinking for Safe Swallow: Total Assistance (1:1) Foods to Avoid: Sticky or congealed purees. Add sauces and gravies and blend well. Swallowing Recommended Treatments: Compens. Strategy Educat. Recommendation for Speech: Inpatient Speech Therapy Patient evaluated 05/20 by PAPER BAG MACHINE OPERATOR and recommended puree solids and thin liquids. Patient refused solids w/ PAPER BAG MACHINE OPERATOR on 05/23, was NPO for procedure on 05/24, and refused solids w/ PAPER BAG MACHINE OPERATOR on 05/25 again. No change recommended at this time to diet as patient is refusing to trial solids w/ PAPER BAG MACHINE OPERATOR. Continue to recommend Puree Solids and Thin Liquids. Meds whole with Puree. Pt will require 1:1 assistance with all PO. PAPER BAG MACHINE OPERATOR continuing to follow. Recommend PAPER BAG MACHINE OPERATOR tx at next level of care. Sleep Technologist Clinican/Clinical Fellow: No Supervisory Statement: I have reviewed and agree with the student/clinical fellow's documentation: N/A Speech Language Pathologist: Yaritza Syed M.A., [facility]-PAPER BAG MACHINE OPERATOR
--- NOTE | 2023-05-25 18:10 | HO.POSTANES ---
Post Anesthesia Evaluation Post Anesthesia Evaluation Date of Service: 05/24/23 Vital Signs: Vital Signs Temp Pulse Resp BP Pulse Ox O2 Del Method 05/25/23 12:08 100 Room Air 05/25/23 12:06 97.6 F 97 18 121/58 L 100 Room Air 05/25/23 08:58 98 20 05/25/23 07:42 97.3 F 94 18 147/69 H 05/25/23 07:24 97.3 F 94 18 147/69 H 99 Room Air 05/25/23 07:21 97.2 F 94 18 147/69 H 99 Room Air Anesthesia: Monitored Mental Status: Awake Pain Control: Satisfactory Nausea/Vomiting: None Hydration: Adequate Anesthesia-Related Issues: No Anes. Related Issues
--- NOTE | 2023-05-30 10:38 | P.CDIM_ITS ---
PROVIDER RESPONSE TEXT: To clarify, the appropriate diagnosis supported by the clinical indicators: Acute QUERY TEXT: PHYSICIAN'S DOCUMENTATION REQUEST Date of Query: 05/24/2023 09:23 AM EST Patient Name: Cindy Toney Admit Date: 05/17/2023 Dear Ro Julian, A review of the medical record indicates additional documentation may be needed. Please review below and update the documentation accordingly. Clinical Indicators: Per Hospitalist Progress Note 05/23/23: Metabolic Acidosis Clarify which of the following accurately represents the acuity of the Metabolic Acidosis. Possible options might include: Acute Acute on chronic Compensated Chronic stable condition Remission Other (explain) Clinically unable to determine (explain) Thank you, Vianney Lui RN Use of terms such as suspected, likely, concern for, or probable (associated with a specific diagnosi s that is being evaluated, monitored, or treated as if it exists) are acceptable and can be coded in the inpatient se tting, when documented at the time of discharge. Please use your independent medical judgment in providing your response. THIS QUERY IS PART OF THE PERMANENT MEDICAL RECORD
== END 2023-05-25 13:39 | disposition skilled nursing facility (03) | DRG 871 ==
LOC: HO.ED 11:29 → HO.EDOVER 11:32 → HO.ICU 12:12 → HO.S3 05-20 08:08 → HO.IMC 05-20 13:54
PROVIDERS: Internal Medicine Cardiovascular Disease; Nurse Practitioner Acute Care; Physician Assistant; Physician Assistant Medical; Registered Nurse Community Health; Student in an Organized Health Care Education/Training Program; Urology; Admitting Provider Internal Medicine Pulmonary Disease; Emergency Provider Emergency Medicine Emergency Medical Services; PCP Internal Medicine; Visit Provider Hospitalist
PROC: 0TP98DZ Removal of Intraluminal Device from Ureter, Via Natural or Artificial Opening Endoscopic (ICD-10-PCS; CPT 52310; principal; 2023-05-24 09:50)
DX: A41.59 Other Gram-negative sepsis (principal); G93.41 Metabolic encephalopathy; I21.A1 Myocardial infarction type 2; R65.21 Severe sepsis with septic shock; C91.10 Chronic lymphocytic leukemia of B-cell type not having achieved remission; N13.6 Pyonephrosis; E27.3 Drug-induced adrenocortical insufficiency; I13.0 Hypertensive heart and chronic kidney disease with heart failure and stage 1 through stage 4 chronic kidney disease, or unspecified chronic kidney disease; J96.11 Chronic respiratory failure with hypoxia; I48.92 Unspecified atrial flutter; N17.9 Acute kidney failure, unspecified; I50.32 Chronic diastolic (congestive) heart failure; E87.21 Acute metabolic acidosis; N18.30 Chronic kidney disease, stage 3 unspecified; E03.9 Hypothyroidism, unspecified; E78.5 Hyperlipidemia, unspecified; Z71.3 Dietary counseling and surveillance; D63.1 Anemia in chronic kidney disease; D63.0 Anemia in neoplastic disease; E11.22 Type 2 diabetes mellitus with diabetic chronic kidney disease; B96.1 Klebsiella pneumoniae [K. pneumoniae] as the cause of diseases classified elsewhere; J44.9 Chronic obstructive pulmonary disease, unspecified; E11.649 Type 2 diabetes mellitus with hypoglycemia without coma; E66.01 Morbid (severe) obesity due to excess calories; D69.59 Other secondary thrombocytopenia; Z68.37 Body mass index [BMI] 37.0-37.9, adult; Z20.822 Contact with and (suspected) exposure to COVID-19; G47.33 Obstructive sleep apnea (adult) (pediatric); Z99.81 Dependence on supplemental oxygen; Z87.891 Personal history of nicotine dependence; Z79.4 Long term (current) use of insulin; Z79.52 Long term (current) use of systemic steroids; Z79.890 Hormone replacement therapy; Z79.899 Other long term (current) drug therapy
CPT/HCPCS: 36415; 70450; 71045; 71250; 74176; 80048; 80053; 80076; 80202; 81001; 82140; 82565; 82803; 82947; 83036; 83605; 83690; 83735; 83880; 84100; 84439; 84443; 84484; 85007; 85025; 85027; 85610; 86850; 86900; 86901; 86923; 87040; 87070; 87077; 87086; 87186; 87205; 87502; 87635; 92526; 92610; 93005; 93306; 94640; 99285; C1758; J1335; J1580; J1642; J1720; J2185; J2543; J3010; J3370; P9016; P9047; Q9967

== ENCOUNTER → 2023-05-17 09:11 | Outpatient (BNV) | payer MEDICARE, MEDICAID, SELFPAY | PROVIDERS: Admitting Provider Internal Medicine Pulmonary Disease; Emergency Provider Emergency Medicine Emergency Medical Services; PCP Internal Medicine; Visit Provider Internal Medicine Cardiovascular Disease | DX: R94.31 Abnormal electrocardiogram [ECG] [EKG] (principal) | CPT/HCPCS: 93010 ==

== ENCOUNTER 2023-05-17 11:28 | Outpatient (BNV) | payer MEDICARE, MEDICAID, SELFPAY | END 2023-05-21 14:24 | PROVIDERS: Admitting Provider Internal Medicine Pulmonary Disease; Emergency Provider Emergency Medicine Emergency Medical Services; PCP Internal Medicine; Visit Provider Internal Medicine Cardiovascular Disease | DX: R94.31 Abnormal electrocardiogram [ECG] [EKG] (principal) | CPT/HCPCS: 93010 ==

== ENCOUNTER 2023-05-17 11:28 | Outpatient (BNV) | payer MEDICARE, MEDICAID, SELFPAY | END 2023-05-20 12:38 | PROVIDERS: Admitting Provider Internal Medicine Pulmonary Disease; Emergency Provider Emergency Medicine Emergency Medical Services; PCP Internal Medicine; Visit Provider Internal Medicine Cardiovascular Disease | DX: I34.0 Nonrheumatic mitral (valve) insufficiency (principal); I34.81 Nonrheumatic mitral (valve) annulus calcification | CPT/HCPCS: 93010; 93306 ==

== ENCOUNTER → 2023-05-17 11:28 | Outpatient (BNV) | payer MEDICARE, MEDICAID, SELFPAY | PROVIDERS: Admitting Provider Internal Medicine Pulmonary Disease; Emergency Provider Emergency Medicine Emergency Medical Services; PCP Internal Medicine; Visit Provider Physician Assistant Medical | DX: A41.9 Sepsis, unspecified organism (principal); R65.21 Severe sepsis with septic shock; I48.91 Unspecified atrial fibrillation | CPT/HCPCS: 99232; 99233; 99238 ==

== ENCOUNTER → 2023-05-17 11:28 | Outpatient (BNV) | payer MEDICARE, MEDICAID, SELFPAY | PROVIDERS: Admitting Provider Internal Medicine Pulmonary Disease; Emergency Provider Emergency Medicine Emergency Medical Services; PCP Internal Medicine; Visit Provider Internal Medicine Cardiovascular Disease | DX: A41.9 Sepsis, unspecified organism (principal); R65.21 Severe sepsis with septic shock; I50.9 Heart failure, unspecified; R78.81 Bacteremia; E66.01 Morbid (severe) obesity due to excess calories; N18.30 Chronic kidney disease, stage 3 unspecified; I10 Essential (primary) hypertension; E11.649 Type 2 diabetes mellitus with hypoglycemia without coma; I95.9 Hypotension, unspecified; E27.40 Unspecified adrenocortical insufficiency; T38.0X5A Adverse effect of glucocorticoids and synthetic analogues, initial encounter; F19.20 Other psychoactive substance dependence, uncomplicated | CPT/HCPCS: 99291 ==

== ENCOUNTER → 2023-05-17 11:28 | Outpatient (BNV) | payer MEDICARE, MEDICAID, SELFPAY | PROVIDERS: Admitting Provider Internal Medicine Pulmonary Disease; Emergency Provider Emergency Medicine Emergency Medical Services; PCP Internal Medicine; Visit Provider Urology | DX: Z96.0 Presence of urogenital implants (principal) | CPT/HCPCS: 52310; 99223 ==

== ENCOUNTER → 2023-05-17 11:28 | Outpatient (BNV) | payer MEDICARE, MEDICAID, SELFPAY | PROVIDERS: Admitting Provider Internal Medicine Pulmonary Disease; Emergency Provider Emergency Medicine Emergency Medical Services; PCP Internal Medicine; Visit Provider Internal Medicine Cardiovascular Disease | DX: I48.92 Unspecified atrial flutter (principal) | CPT/HCPCS: 99223; 99233 ==

== ENCOUNTER → 2023-05-17 11:28 | Outpatient (BNV) | payer MEDICARE, MEDICAID, SELFPAY | PROVIDERS: Admitting Provider Internal Medicine Pulmonary Disease; Emergency Provider Emergency Medicine Emergency Medical Services; PCP Internal Medicine; Visit Provider Internal Medicine Pulmonary Disease | DX: R78.81 Bacteremia (principal); A41.9 Sepsis, unspecified organism; R65.21 Severe sepsis with septic shock; E11.649 Type 2 diabetes mellitus with hypoglycemia without coma; N18.30 Chronic kidney disease, stage 3 unspecified; E66.01 Morbid (severe) obesity due to excess calories; I50.9 Heart failure, unspecified; N17.9 Acute kidney failure, unspecified; C91.10 Chronic lymphocytic leukemia of B-cell type not having achieved remission | CPT/HCPCS: 99291 ==